=== PATIENT | female | born 1950 | race Caucasian/White ===

== ENCOUNTER → 2017-03-04 | Outpatient (CLI) | payer MEDICARE, SELFPAY | PROVIDERS: Family Provider Physician Assistant; Visit Provider Physician Assistant | DX: G57.01 Lesion of sciatic nerve, right lower limb (principal) | CPT/HCPCS: 72110 ==

== ENCOUNTER → 2017-04-14 15:56 | Outpatient (CLI) | payer MEDICARE, SELFPAY ==
--- NOTE | 2017-04-14 16:01 | MR_ITS ---
MR lumbar spine wo con HISTORY: Low back pain, right hip and leg pain with numbness and tingling, right foot numbness ORDERING PHYSICIAN: Benjie Butcher MD PATIENT AGE: 67 years COMPARISON: 02/22/2017 radiograph TECHNIQUE: Standard multiplanar multiecho sequences are performed without contrast. 3-D MIP and myelographic images are also rendered and reviewed FINDINGS: Spinal cord ends at the T12-L1 level. T11-T12, T12-L1, L1-L2 L2-L3, and L3-L4 disc spaces are unremarkable. There is mild facet and ligamentum flavum hypertrophy at L2-L3 and L3-L4 without significant lateral recess or foraminal narrowing. L4-L5: Mild anterolisthesis of L4 of 4 mm with bulging disc and small central disc protrusion. There is moderate facet and ligamentum flavum hypertrophy with transverse narrowing of the canal. The facet ligamentum hypertrophy is somewhat more prominent on the right with resultant severe right lateral recess narrowing and moderate right foraminal narrowing. There is moderate left lateral recess and mild left foraminal narrowing. L5-S1: There is severe degenerative disc disease with marked decrease in the disc space with type II endplate changes. Bilateral facet hypertrophy more prominent on the right. There is moderate to severe right-sided foraminal narrowing and mild left foraminal narrowing IMPRESSION: 1. L4-L5: Mild anterolisthesis of L4 of 4 mm with bulging disc and small central disc protrusion. There is moderate facet and ligamentum flavum hypertrophy with transverse narrowing of the canal. The facet ligamentum hypertrophy is somewhat more prominent on the right with resultant severe right lateral recess narrowing and moderate right foraminal narrowing. There is moderate left lateral recess and mild left foraminal narrowing. 2. L5-S1: There is severe degenerative disc disease with marked decrease in the disc space with type II endplate changes. Bilateral facet hypertrophy more prominent on the right. There is moderate to severe right-sided foraminal narrowing and mild left foraminal narrowing 3. Generalized spondylosis of lumbar spine as detailed above
== END ==
PROVIDERS: Family Provider Family Medicine; PCP Family Medicine; Visit Provider Family Medicine
DX: G57.01 Lesion of sciatic nerve, right lower limb (principal)
CPT/HCPCS: 72148; 76376

== ENCOUNTER → 2017-10-28 12:42 | Outpatient (CLI) | payer MEDICARE, SELFPAY ==
[2017-10-28 12:45] LABS: Adenovirus F 40/41, stool Not Detected (NotDetected); Astrovirus Not Detected (NotDetected); Campylobacter Not Detected (NotDetected); Clostridium Difficile A/B, PCR Not Detected (NotDetected); Cryptosporidium Not Detected (NotDetected); Cyclospora Cayetanesis Not Detected (NotDetected); Entamoeba histolytica Not Detected (NotDetected); Enteroaggregative E coli Not Detected (NotDetected); Enteropathogenic E coli Not Detected (NotDetected); Enterotoxigenic E coli Not Detected (NotDetected); Giardia lamblia Not Detected (NotDetected); Norovirus Not Detected (NotDetected); Plesimonas Shigalloides, PCR Not Detected (NotDetected); Rotavirus A Not Detected (NotDetected); Salmonella, PCR Not Detected (NotDetected); Sapovirus Not Detected (NotDetected); Shiga-like toxin E coli Not Detected (NotDetected); Shigella Enterovasive E coli Not Detected (NotDetected); Vibrio Cholerae Not Detected (NotDetected); Vibrio, PCR Not Detected (NotDetected); Yersinia Entercolitica, PCR Not Detected (NotDetected)
== END ==
PROVIDERS: Visit Provider Nurse Practitioner Family
DX: R19.7 Diarrhea, unspecified (principal)
CPT/HCPCS: 87507

== ENCOUNTER 2020-03-17 22:29 | Emergency (ER) | payer MEDICARE, SELFPAY ==
[2020-03-17 22:30] VITALS: BP 188/77; PULSE 66; RESP 16; TEMP 36.6; O2SAT 97; BMI 26.5
[2020-03-17 22:54] LABS: Basophils # 0.1 K/mm3 (0-0.2); Basophils % 0.6 % (0.1-2.0); Eosinophils # 0.1 K/mm3 (0.0-0.4); Eosinophils % 1.6 % (0.1-12.0); Hematocrit 41.8 % (37.0-47.0); Lymphocytes # 2.5 K/mm3 (0.7-4.5); Lymphocytes % 34.8 % (10-50); Mean Corpuscular HGB Conc 33.5 g/dL (31.8-35.4); Mean Corpuscular Hemoglobin 32.4 pg (27.0-31.2); Mean Corpuscular Volume 96.7 fl (81-99); Mean Platelet Volume 7.3 fl (7.4-10.4); Monocytes # 0.5 K/mm3 (0.1-1.0); Monocytes % 6.5 % (1.7-9.3); Neutrophils # 4.1 K/mm3 (1.8-7.8); Neutrophils % 56.6 % (37.0-80.0); Platelet Count 323 K/mm3 (142-424); Red Blood Count 4.32 M/mm3 (4.20-5.40); Red Cell Distribution Width 13.9 % (11.5-17.5); White Blood Count 7.2 K/mm3 (4.8-10.8)
--- NOTE | 2020-03-17 22:54 | PC.NURSE ---
hung D5W 500ml but unable to scan. pt received 8oz orange juice, upon arrival pt drank 2 cokes and peanut butter
[2020-03-17 23:00] LABS: POC Glucose,Bedside 55 (70-110)
[2020-03-17 23:00] LABS: Chloride 100 mmol/L (98-107); Potassium 3.8 mmoL/L (3.5-5.1); Sodium 137 mmol/L (136-145)
--- NOTE | 2020-03-17 23:01 | PC.NURSE ---
poison control recommends to monitor pt for 4-5 hrs from when pt took insulin
[2020-03-17 23:03] LABS: Alanine Aminotransferase 29 U/L (12-78); Albumin Level 4.4 g/dl (3.5-5.0); Alkaline Phosphatase 123 U/L (38-126); Anion Gap 10.8 mEq/L (5-15); Aspartate Amino Transferase 43 U/L (14-36); Bilirubin,Total 0.4 mg/dl (0.2-1.3); Blood Urea Nitrogen 17 mg/dl (7-17); Calcium 9.8 mg/dl (8.4-10.2); Carbon Dioxide 30 mmol/L (22.0-30.0); Creatinine Clearance Estimated 48 mL/min (50-200); Estimated Glomerular Filt Rate 45 ml/min (>60); GFR (African American) 54 ML/MIN (>60); Globulin 4.3 g/dL (1.3-3.2); Glucose 51 mg/dl (74-100); Total Protein,Serum 8.7 g/dl (6.3-8.2)
[2020-03-17 23:30] VITALS: BP 147/61; PULSE 62; O2SAT 97
--- NOTE | 2020-03-17 23:39 | PC.NURSE ---
pt is currently 90 glucose via [employer]in[employer] device
[2020-03-18] VITALS (9 sets, daily range): BP systolic 142–168; BP diastolic 61–72; PULSE 59–69; RESP 14; TEMP 36.6; O2SAT 93–96
--- NOTE | 2020-03-18 00:10 | PC.NURSE ---
pt glucose dropped to 56 via dexcom monitor. pt was given peanut butter
--- NOTE | 2020-03-18 00:16 | PC.NURSE ---
pt glucose 77 via dexcom
--- NOTE | 2020-03-18 00:21 | PC.NURSE ---
Sy from poison control called for a pt status. no more recommendations @ this time
--- NOTE | 2020-03-18 00:23 | HMH.EDGENADL ---
ED Disposition Clinical Impression: Medication reaction Qualifiers: Encounter type: initial encounter Qualified Code(s): T50.905A - Adverse effect of unspecified drugs, medicaments and biological substances, initial encounter Diabetes mellitus Qualifiers: Diabetes mellitus type: type 1 Diabetes mellitus complication status: with other specified complication Qualified Code(s): E10.69 - Type 1 diabetes mellitus with other specified complication Disposition: Home, Self-Care Condition on Discharge: Good Instructions: DI for Hyperglycemia -- Adult Additional Instructions: see pcp for follow up Referrals: Nagi Malave [Primary Care Provider] - - Critical Care Critical Care Time: No Attestation: On 03/17/20, the high probability of a clinically significant, sudden or life threatening deterioration of the following system(s) required my full and direct attention, intervention and personal management. The time I documented below is in addition to time spent performing reported procedures but includes the following listed in this critical care notation. Medical Decision Making - Medical Records Medical records reviewed: Yes: I reviewed the patient's medical records. - Tee Inquiry Pt receiving controlled substance: No Vital Signs: 03/17/20 22:30 03/17/20 23:30 03/18/20 00:00 Temperature 97.9 F Temperature Source Oral Pulse Rate [Right] 66 62 60 Respiratory Rate 16 Blood Pressure [Right Arm] 188/77 H 147/61 H 168/72 H Blood Pressure Mean [Right Arm] 114 89 104 02 Sat by Pulse Oximetry 97 97 96 Oxygen Delivery Method Room Air 03/18/20 00:30 03/18/20 01:00 03/18/20 01:30 Temperature Temperature Source Pulse Rate [Right] 60 61 60 Respiratory Rate Blood Pressure [Right Arm] 156/65 H 165/65 H 142/64 H Blood Pressure Mean [Right Arm] 95 98 90 02 Sat by Pulse Oximetry 94 L 94 L 94 L Oxygen Delivery Method Room Air 03/18/20 02:00 03/18/20 02:30 03/18/20 03:00 Temperature Temperature Source Pulse Rate [Right] 63 61 59 L Respiratory Rate Blood Pressure [Right Arm] 142/64 H 149/64 H 156/64 H Blood Pressure Mean [Right Arm] 90 92 94 02 Sat by Pulse Oximetry 93 L 95 95 Oxygen Delivery Method 03/18/20 03:30 Temperature Temperature Source Pulse Rate [Right] 62 Respiratory Rate Blood Pressure [Right Arm] 162/64 H Blood Pressure Mean [Right Arm] 96 02 Sat by Pulse Oximetry 94 L Oxygen Delivery Method - Lab Data Lab results reviewed: Yes: I reviewed the patient's lab results. Lab Results 03/17/20 22:34: POC Glucose 55 L 03/17/20 22:40: WBC 7.2, RBC 4.32, Hgb 14.0, Hct 41.8, MCV 96.7, MCH 32.4 H, MCHC 33.5, RDW 13.9, Plt Count 323, MPV 7.3 L, Neut % (Auto) 56.6, Lymph % (Auto) 34.8, [place] % (Auto) 6.5, Eos % (Auto) 1.6, Baso % (Auto) 0.6, Neut # (Auto) 4.1, Lymph # (Auto) 2.5, [place] # (Auto) 0.5, Eos # (Auto) 0.1, Baso # (Auto) 0.1 03/17/20 22:40: Sodium 137, Potassium 3.8, Chloride 100, Carbon Dioxide 30, Anion Gap 10.8, BUN 17, Creatinine 1.20 H, Estimated Creat Clear 48, Estimated GFR 45 L, Est GFR ( Amer) 54 L, Glucose 51 L, Calcium 9.8, Total Bilirubin 0.4, AST 43 H, ALT 29, Alkaline Phosphatase 123, Total Protein 8.7 H, Albumin 4.4, Globulin 4.3 H, Albumin/Globulin Ratio 1.0 L 03/18/20 02:30: POC Glucose 171 H 03/18/20 03:32: Sodium 129 L, Potassium 4.2, Chloride 96 L, Carbon Dioxide 29, Anion Gap 8.2, BUN 19 H, Creatinine 0.90 D, Estimated Creat Clear 57, Estimated GFR 62, Est GFR ( Amer) 75 D, Glucose 122 H D, Calcium 8.7 D Result diagrams: 03/17/20 22:40 03/18/20 03:32 Orders (Tests/Meds): ED MEDICATIONS Generic Name Dose Route Start Last Admin Trade Name Freq PRN Reason Stop Dose Admin Dextrose 500 ml 03/17/20 22:49 Dextrose 5% In Water 500ml Iv IV 03/17/20 22:50 ONCE ONE Dextrose/Water 500 mls @ 25 mls/hr 03/18/20 01:00 03/18/20 01:05 Dextrose 10% In Water 500ml IV 04/17/20 00:59 25 mls/hr .Q20H MELLY Admini
--- NOTE | 2020-03-18 00:32 | PC.NURSE ---
glucose 98 via dexcom D5W bolus complete
--- NOTE | 2020-03-18 00:46 | PC.NURSE ---
glucose 87 via dexcom
--- NOTE | 2020-03-18 01:10 | PC.NURSE ---
glucose 46 via dexcom. D10 500ml bolus hung @ this time. pt was given orange juice with sugar in it
--- NOTE | 2020-03-18 01:17 | PC.NURSE ---
glucose 70 via dexcom
--- NOTE | 2020-03-18 01:32 | PC.NURSE ---
glucose 130 via dexcom
--- NOTE | 2020-03-18 01:48 | PC.NURSE ---
glucose 160 via dexcom D10 bolus stopped @ this time
--- NOTE | 2020-03-18 02:00 | PC.NURSE ---
glucose 86 via dexcom
--- NOTE | 2020-03-18 02:09 | PC.NURSE ---
glucose 69 via dexcom D10 restarted
--- NOTE | 2020-03-18 02:17 | PC.NURSE ---
glucose 74 via dexcom. pt is resting with no complaints @ this time
--- NOTE | 2020-03-18 02:31 | PC.NURSE ---
FSBS 171 D10 complete
[2020-03-18 02:37] LABS: POC Glucose,Bedside 171 (70-110)
--- NOTE | 2020-03-18 03:08 | PC.NURSE ---
poison control call for pt update glucose 140 via dexcom
--- NOTE | 2020-03-18 03:34 | PC.NURSE ---
glucose 119 via dexcom
[2020-03-18 03:51] LABS: Chloride 96 mmol/L (98-107)
[2020-03-18 03:52] LABS: Potassium 4.2 mmoL/L (3.5-5.1); Sodium 129 mmol/L (136-145)
[2020-03-18 03:54] LABS: Blood Urea Nitrogen 19 mg/dl (7-17); Creatinine Clearance Estimated 57 mL/min (50-200); Estimated Glomerular Filt Rate 62 ml/min (>60); GFR (African American) 75 ML/MIN (>60)
[2020-03-18 03:55] LABS: Anion Gap 8.2 mEq/L (5-15); Carbon Dioxide 29 mmol/L (22.0-30.0)
--- NOTE | 2020-03-18 04:07 | PC.NURSE ---
glucose 130 via dexcom
[2020-03-18 04:18] LABS: Calcium 8.7 mg/dl (8.4-10.2); Glucose 122 mg/dl (74-100)
== END 2020-03-18 04:40 | disposition home or self-care (01) ==
PROVIDERS: Emergency Provider Emergency Medicine; PCP Internal Medicine
DX: T38.3X1A Poisoning by insulin and oral hypoglycemic [antidiabetic] drugs, accidental (unintentional), initial encounter (principal); E10.69 Type 1 diabetes mellitus with other specified complication; I25.10 Atherosclerotic heart disease of native coronary artery without angina pectoris; Z79.899 Other long term (current) drug therapy; Z79.4 Long term (current) use of insulin
CPT/HCPCS: 96365; 80048; 80053; 82962; 85025; 96366; 99283; J7060

== ENCOUNTER 2020-05-15 12:56 | Outpatient (RCR) | payer MEDICARE, SELFPAY | END 2020-09-15 10:59 | disposition home or self-care (01) | LOC: PT 12:56 | DX: I21.9 Acute myocardial infarction, unspecified (principal) | CPT/HCPCS: 93798 ==

== ENCOUNTER → 2021-08-22 13:27 | Outpatient (CLI) | payer MEDICARE, SELFPAY ==
[2021-08-22 15:21] LABS: Chloride 102 mmol/L (98-107); Sodium 133 mmol/L (136-145)
[2021-08-22 15:22] LABS: Albumin Level 3.2 g/dl (3.5-5.0)
[2021-08-22 15:24] LABS: Blood Urea Nitrogen 30 mg/dl (7-17); Carbon Dioxide 22 mmol/L (22.0-30.0); Estimated Glomerular Filt Rate 37 ml/min (>60); GFR (African American) 45 ML/MIN (>60); Glucose 229 mg/dl (74-100); Phosphorous 4.5 mg/dl (2.5-4.5)
[2021-08-22 15:25] LABS: Calcium 8.9 mg/dl (8.4-10.2)
== END ==
PROVIDERS: PCP Internal Medicine; Visit Provider Hospitalist
DX: N17.9 Acute kidney failure, unspecified (principal)
CPT/HCPCS: 36415; 80069

== ENCOUNTER → 2022-11-07 14:25 | Outpatient (CLI) | payer MEDICARE, SELFPAY | PROVIDERS: PCP Nurse Practitioner Family; Visit Provider Nurse Practitioner Family | DX: R19.7 Diarrhea, unspecified (principal) | CPT/HCPCS: 87506 ==

== ENCOUNTER 2024-08-30 12:55 | Outpatient (CLI) | payer MEDICARE, SELFPAY ==
--- OUTSIDE RECORDS SUMMARY | 2024-07-01 10:20 | XMS_ITS | Encounter Summary ---
Author Organization [facility] Address [address] [place] [address] Care Team Providers Care Protocol Manager Name Role Phone Alisa Kunz DO Primary Care Provider [phone] Kodi Bustos DO Unavailable [phone] Sujit Arriola MD Unavailable [phone] Sujit Reyes MD Unavailable [phone] Tanya Powell Unavailable [phone] Reason for Visit * Reason Comments Follow-up Encounter Details Date Type Department Care Team ([facility] st Contact Info) Description 07/01/2024 10:20 AM EDT Office Visit Medical Office Building [facility] [address], [address] [place] [address] Nathan Shepard MD [address] [facility] [address] [place] [address] Burst fracture of T12 vertebra (CMS/HCC) (Primary Dx) Social History Tobacco Use Types Packs/Day Years Used Date Smoking Tobacco: Never Passive Smoke Exposure: Past Smokeless Tobacco: Never Tobacco Cessation:Counseling Given: Not Answered Passive Exposure Comments:2nd hand smoke Alcohol Use Standard Drinks/Week Comments Yes 4 (1 standard drink = 0.6 oz pur e alcohol) Nightly Humiliation, Afraid, Rape, and Kick questionnair e Answer Date Recorded Within the last year, have y ou been afraid of your partner or ex-partner? No 05/27/2024 Within the last year, have y ou been humiliated or emotionally abused in other ways by your partner or ex-partner? No Within the last year, have y ou been kicked, hit, slapped, or otherwise physically hurt by your partner or ex-partner? No 05/27/2024 Within the last year, have y ou been raped or forced to have any kind of sexual activity by your partner or ex-partner? No 05/27/2024 Social Connection and Isolation Panel Answer Date Recorded In a typical week, how many times do you talk on the phone with family, friends, or neighbors? Once a week 08/31/19 How often do you get togethe r with friends or relatives? Once a week 08/30/2022 How often do you attend [facility] or congregation services? 1 to 4 times per year 08/30/2022 Do you belong to any clubs o r organizations such as baptism groups, unions, fraternal or athletic groups, or school groups? No 08/30/2022 How often do you attend meet ings of the clubs or organizations you belong to? Never 08/30/2022 Are you , , di vorced, , never , or living with a partner? 08/30/2022 AUDIT-C Answer Date Recorded Q1: How often do you have a drink containing alcohol? 4 or more times a week 08/30/2022 Q2: How many drinks containi ng alcohol do you have on a typical day when you are drinking? 3 or 4 Q3: How often do you have si x or more drinks on one occasion? Less than monthly 08/30/2022 Overall Financial Resource Strain (CARDIA) Answe r Date Recorded How hard is it for you to pa y for the very basics like food, housing, medical care, and heating? Not hard at all 08/30/2022 PHQ-2 Answer Date Recorded Patient Health Questionnaire-2 Score 0 06/01/2024 [facility] - Occupational Stress Questionnaire Answer Date Recorded Do you feel stress - tense, restless, nervous, or anxious, or unable to sleep at night because your mind is troubled all the time - these days? To some extent 08/30/2022 Exercise Vital Sign Answer Date Recorde d On average, how many days pe r week do you engage in moderate to strenuous exercise (like a brisk walk)? 2 days 08/30/2022 On average, how many minutes do you engage in exercise at this level? 60 min 08/30/2022 Hunger Vital Sign Answer Date Recorded Within the past 12 months, y ou worried that your food would run out before you got the money to buy more. Never true 05/28/19 Within the past 12 months, t he food you bought just didn't last and you didn't have money to get more. Never true 05/27/2024 PRAPARE - Transportation Answer Date Re corded In the past 12 months, has l ack of transportation kept you from medical appointments or from getting medications? Yes 05/09 In the past 12 months, has l ack of transportation kept you from meetings, work, or from getting things needed for daily living? Yes 05/27/2024 Housing Stability Vital Sign Answer Hong e Recorded In the last 12 months, was t here a time when you were not able to pay the mortgage or rent on time? No 12/30/2023 In the last 12 months, how many places have you lived? 1 12/30/2023 In the last 12 months, was t here a time when you did not have a steady place to sleep or slept in a senior living (including now)? No 12/30/2023 PHQ-9 Answer Date Recorded Patient Health Questionnaire-9 Score 0 06/01/2024 Housing Stability Vital Sign Answer Hong e Recorded In the last 12 months, was t here a time when you were not able to pay the mortgage or rent on time? No 05/27/2024 In the past 12 months, how m any times have you moved where you were living? 0 05/27/2024 At any time in the past 12 m [facility], were you homeless or living in a senior living (including now)? No 05/27/2024 CAGE ASSESSMENT Answer Date Recorded Cage unable to access Not on file 06/29/2024 Maximum number of drinks you had on a given occasion in the last month? 0 drinks 06/29/2024 How many alcoholic Beverages do you typically drink in a week? 0 - 7 per week 06/29/2024 Have you ever felt you should CUT down on your d rinking? 0 06/29/2024 Have you been ANNOYED by peo ple criticizing your drinking? 0 06/29/2024 Have you felt GUILTY about your drinking? 0 06/29/2024 Have you had a drink first t anselmo in the morning ([employer]) to steady your nerves or to get rid of a hangover? 0 06/29/2024 CAGE Questionnaire Score 0 025 Utilities Answer Date Recorded In the past 12 months has th e electric, gas, oil, or water company threatened to shut off services in your home? No 05/27/2024 PHQ-2A Answer Date Recorded Depression Risk 0 09/18/2022 Comments No Sex and Gender Information Value Date Recorded Sex Assigned at Female 11/01/2020 9:33 PM EDT Legal Sex Female 8:14 PM EDT Gender Identity Female 11/01/2020 9:33 PM EDT Sexual Orientation Straight 11/01/2020 9: 33 PM EDT documented as of this encounter Last Filed Vital Signs Vital Sign Reading Time Taken Comments Blood Pressure 108/69 07/01/2024 10:41 AM EDT Pulse 70 07/01/2024 10:41 AM EDT Temperature - - Respiratory Rate - - Oxygen Saturation 98% 07/01/2024 10:41 AM EDT Inhaled Oxygen Concentration - - Weight 63.5 kg (140 lb) 07/01/2024 10:41 AM EDT Height 162.6 cm (5' 4 ) 07/01/2024 10:41 AM EDT Body Mass Index 24.03 07/01/2024 10:41 AM EDT documented in this encounter Miscellaneous Notes * Progress Notes - Patricia Tapia PA - 07/01/2024 10:20 AM EDT ORTHOPEDIC SPINE CLINIC 07/01/2024 CHIEF COMPLAINT: fracture follow up DATE OF INJURY: 03/12/24 INJURY: T12 burst fracture ATTENDING SURGEON: Dera SUBJECTIVE: Michelle Felipe returns to clinic today now 16 weeks after sustaining the above injury. Injury was sustained by fall from standing height. At her last visit 06/16/2024 she continued to complain of pain in her thoracic spine rated 10/10. Therefore, she was referred for thoracic spine MRI to evaluate fracture healing status. She states she is recovering from pneumonia and had thoracentesis for pleural effusion. She is using O2 via nasal cannula 30/09. She complains of 10/10 pain in her upper thoracic and lumbar spine. She denies radiculopathy into lower extremities. She uses a walker at home but uses a wheelchair for community ambulation. She complains of bending forward when using her walker. She states she was not able to walk upright. She has severe low back pain. However, she was not noticed leg symptoms associated with her back pain. She was very concerned that this has not been evaluated nor has been treated recently. No change in his bowel or bladder function. Medical History[1] Current Medications[2] 14 point review of systems was completed Constitutional: Denies N/V, fever/chills, weight loss/gain, fatigue, malaise, or night sweats. PULM: Denies SOB, wheezing or cough. CARDIAC: Denies chest pain or heart palpitations. MUSK: Reports upper thoracic and lumbar spine pain, as further described in history of present illness. DERM: Reports no skin rashes or lesions of concern HEME: Denies any bleeding, there is not ecchymosis present OBJECTIVE: Vitals: 07/01/24 1041 BP: 108/69 Pulse: 70 SpO2: 98% Weight: 63.5 kg (140 lb) Height: 1.626 m (5' 4 ) FOCUSED NEURO EXAM: Motor Strength Right Left L2: Hip flexion (Iliopsoas) 07/12 07/12 L3: Knee extension (Quad) 07/12 07/12 L4: Ankle DF (TA) 07/12 07/12 L5: Great Toe DF (EHL) 07/12 07/12 S1: Ankle Pf, Foot Eversion (Peroneal longus/brevis) 07/12 07/12 S2: Great toe flexion (FHL), Knee flexion 07/12 07/12 Sensation Right Left L2: Proximal anterior thigh Normal Normal L3: Mid anterior thigh Normal Normal L4: Medial leg/foot, great toe (Saphenous n.) Normal Normal L5: Dorsum of mid foot Normal Normal S1: Lateral leg/foot, little toe, Back of leg (Sural n.) Normal Normal Reflexes Right Left L4: Patellar 2/4 2/4 S1: Achilles 2/4 2/4 Straight leg raise is Negative Sitting comfortably in wheelchair with O2 nasal cannula in place IMAGING: MRI thoracic spine from June 25, 2024 was reviewed today in clinic. The T12 vertebral body is stable in appearance and without edema. No other bone abnormalities I reviewed her CT scan lumbar spine and cervical spine xrays . She has multilevel facet arthropathyin lumbar spine. No bone abnormalities in cervical or lumbar spine. Disk degeneration in cervical spine. ASSESSMENT: 16 weeks s/p T12 burst fracture progressing as expected. PLAN: Images were reviewed with her showing T12 fracture healing as expected. She met with Dr. Shepard to discuss the MRI. He explained the fracture has healed. She has multilevel degenerative changes. We discussed that cervical and lumbar discs degenerate throughout one's lifetime, though, the pain is often worse in the middle of life. This corresponds to micro-instability in the disc and translates into overloading of the facet joint complex, causing pain. This is expected to stabilize as the de generative process progresses. This results in stiffness and some height loss, but less pain, in general. Treatment should be aimed at symptom control with modalities such as episodic anti-inflammatories, muscle relaxers, physical therapy exercises, and stretching. Surgery is reserved for situations of nerve or spinal cord compression or structural instability, which are not present currently. She has had significant health issues recently. She is deconditioned and needs to start walking forexercise and stamina when able. She does not require further treatment at this time. She will be seen on an as needed basis. This patient asked questions and all of the questions were answered to the patient's satisfaction. [1] Past Medical History: Diagnosis Date 2018-nCoV acute respiratory disease 05/07/2022 Alcohol use Allergic 1973 Anemia Anxiety Arthritis Asthma Cellulitis 02/13/2024 Cellulitis of right leg 02/12/2024 CHF (congestive heart failure) ([facility]) Chronic respiratory failure 2019 Clotting disorder ([facility]) COPD (chronic obstructive pulmonary disease) ([facility]) 2019 Coronary artery disease CTS (carpal tunnel syndrome) Depression Diabetes mellitus type I ([facility]) Disease of thyroid gland Eczema Fracture of left proximal fibula 04/09/2021 - Left proximal fibula fracture on 02/2021 after a mechanical fall. - Established with orthopedic surgery, no surgical intervention, WBAT. Hepatitis B 1960 HL (hearing loss) Hypertension Hyperthyroidism 1960 Hypothyroidism 1960 Infectious viral hepatitis Myocardial infarction (CMS/HCC) Peripheral neuropathy Post-menopausal bleeding 05/08/2021 - Isolated episode of vaginal spotting in early 2021, no recurrence. Was evaluated with OBGYN in 10/2021, no intervention at this time, if recurrence of bleeding will likely require endometrial biopsy. 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 Scleritis. - Needs [facility] eye exam. - Was ableto get patient in with [facility] ophthalmology right after our clinic appointment (where shefollows regularly). - In the meantime, provided erythromycin eye ointment for bacterial conjunctivitis treatment. Ringworm of body 04/09/2022 - Exam findings most consistent with ringworm, exposure suspected to be indoor/outdoor dog. Image available in media tab. - Continue treatment with clotrimazole cream, advised patient that may take acouple weeks for rash to fully resolve - If no improvement with antifungals, next on differential would be skin manifestation of SLE ie discoid lupus, though this is unlikely given lack of other syste Seasonal allergies Sleep apnea, obstructive Stroke (CMS/HCC) Systemic lupus erythematosus, unspecified (CMS/HCC) Lupus Varicella Visual impairment [2] Current Outpatient Medications: acetaminophen (Tylenol) 500 MG tablet, Take 2 tablets (1,000 mg) by mouth every 6 hours as needed.,Disp: , Rfl: amLODIPine (Norvasc) 5 MG tablet, , Disp: , Rfl: brimonidine 0.2 % OP ophthalmic solution, Administer 1 drop into both eyes daily., Disp: 10 mL, Rfl: 0 busPIRone (Buspar) 5 MG tablet, Take 2 tablets (10 mg) by mouth 2 (two) times a day., Disp: , Rfl: cetirizine (ZyrTEC) 10 MG tablet, Take 1 tablet (10 mg) by mouth every evening., Disp: , Rfl: DULoxetine (Cymbalta) [address] capsule, Take 1 capsule (20 mg) by mouth 1 (one) time each day in the morning. Taking 80mg total, Disp: 90 capsule, Rfl: 3 DULoxetine (Cymbalta) [address] capsule, Take 1 capsule (60 mg) by mouth daily. Do not crush or chew., Disp: , Rfl: ezetimibe (Zetia) 10 MG tablet, Take 1 tablet (10 mg) by mouth nightly., Disp: , Rfl: Hzujwivshqg-Pimmaafgp-Mjzipu (Trelegy Ellipta) 200-62.5-25 MCG/ACT aerosol powder , Inhale 1 puff 1(one) time each day in the morning., Disp: 180 each, Rfl: 3 folic acid (Folvite) 1 MG tablet, Taking 1 tablet five days of the week, Disp: 180 tablet, Rfl: 0 gabapentin (Neurontin) 300 MG capsule, Take 1 capsule during the day and 3 capsules at night., Disp: 120 capsule, Rfl: 2 hydroxychloroquine (Plaquenil) 200 MG tablet, Take 1 tablet (200 mg) by mouth 1 (one) time each day., Disp: 90 tablet, Rfl: 1 insulin glargine (Toujeo SoloStar) 300 UNIT/ML injection pen (1 UNIT DIAL), Inject 13 Units under the skin daily., Disp: 4.5 mL, Rfl: 2 insulin lispro (HumaLOG KWIKPEN) 100 UNIT/ML injection pen, Inject 3-4 units before breakfast and lunch, 2-3 units before dinner and 1:75>160 mg/dl. Max tdd 30 units, Disp: 15 mL, Rfl: 2 Insulin Pen Needle (Pen Cabool) 30G X 5 MM [facility], use 4 per day, Disp: , Rfl: latanoprost (Xalatan) 0.005 % ophthalmic solution, Administer 1 drop into both eyes nightly., Disp:, Rfl: levothyroxine (Synthroid, Levoxyl) 125 MCG tablet, Take 1 tablet (125 mcg) by mouth 1 (one) time each day before breakfast., Disp: 90 tablet, Rfl: 3 metoprolol succinate XL (Toprol-XL) 25 MG 24 hr tablet, Take 1 tablet (25 mg) by mouth daily., Disp: , Rfl: mycophenolate (CellCept) 500 MG tablet, Take 2 tablets (1,000 mg) by mouth 2 (two) times a day., Disp: 360 tablet, Rfl: 1 nitroglycerin (Nitrostat) 0.4 MG SL tablet, Place 1 tablet (0.4 mg) under the tongue every 5 (five)minutes as needed for chest pain., Disp: , Rfl: oxygen (O2) gas, Inhale 2 L nightly. via nasal canula, Disp: , Rfl: Pitavastatin Calcium (Livalo) 4 MG tablet, Take 1 tablet by mouth 1 (one) time each day., Disp: 90 tablet, Rfl: 3 warfarin (Coumadin) 5 MG tablet, Take 7.5mg on Mondays (1.5 tablets) and 5mg the rest of the week and follow up with your warfarin pharmacist., Disp: , Rfl: Calcium Carb-Cholecalciferol 600-200 MG-UNIT tablet, Take 1 tablet by mouth 1 (one) time each day in the morning. (Patient not taking: Reported on 07/01/2024), Disp: , Rfl: diclofenac (Voltaren) 1 % topical gel, Place 1-2 g on the skin 2 (two) times a day. Apply as directed to Lower Back (Patient not taking: Reported on 07/01/2024), Disp: 100 g, Rfl: 3 furosemide (Lasix) 40 MG tablet, Take 1 tablet (40 mg) by mouth daily. (Patient not taking: Reported on 06/16/2024), Disp: 30 tablet, Rfl: 0 losartan (Cozaar) 50 MG tablet, Take 1 tablet (50 mg) by mouth daily. (Patient not taking: Reportedon 06/16/2024), Disp: 30 tablet, Rfl: 1 methocarbamol (Robaxin) 500 MG tablet, Take 1 tablet (500 mg) by mouth 3 (three) times a day. (Patient not taking: Reported on 06/16/2024), Disp: 90 tablet, Rfl: 1 tiZANidine (Zanaflex) 2 MG tablet, Take 1 tablet (2 mg) by mouth every 8 hours as needed for musclespasms. (Patient not taking: Reported on 06/16/2024), Disp: 60 tablet, Rfl: 1 Cosigned by Nathan Shepard MD at 07/01/2024 12:35 PM EDT Associated attestation - Nathan Shepard MD - 07/01/2024 12:35 PM EDT I attest to being involved in providing substantive part of the medical decision making in patient care. Very deconditioned, but her fx is stable. Can now do activity as tolerated and can f/u as needed. documented in this encounter Plan of Treatment Upcoming Encounters Date Type Department Care Team (Late st Contact Info) Description 09/08/2024 11:20 AM EDT Office Visit [facility] Internal Medicine [address] [place] [address] Alisa Kunz, DO [address] [place] [address] 10/07/2024 4:00 PM EDT Appointment Cardiac Imaging [address] [place] [address] 10/14/2024 4:00 PM EDT Office Visit [facility] Medicine Specialties [address] [place] [phone] Lavern Shoemaker MD [address] [place] [address] 10/27/2024 1:40 PM EDT Office Visit [facility] Endocrinology [address] [place] [phone] Anne-Marie Kolb L, [employer] C[employer]IVATION MANAGER [address] [place] [phone] 11/29/2024 10:20 AM EDT Office Visit [facility] Internal Medicine [address] [place] [phone] Alisa Kunz, DO [address] [place] [address] 02/02/2025 10:30 AM EST Office Visit [facility] Medicine Specialties [address] [place] [address] Sadiq Osborne, SHANA [address], [place] [phone] documented as of this encounter Visit Diagnoses Diagnosis Burst fracture of T12 vertebra (CMS/HCC)- Primary documented in this encounter Additional Health Concerns Assessment Noted Time PHQ-9 Depression Total Score: 0 06/02/19 25 1:21 PM EDT A fall risk assessment has been complete d for the patient 07/01/2024 10:41 AM EDT A Body Mass Index follow-up plan has been documented for the patient 07/01/2024 12:35 PM EDT documented as of this encounter Care Teams Protocol Manager Relationship Specialty Start Date End Date Alisa Kunz DO [address] [place] [phone] PCP - General Internal Medicine 03/13/21 Kodi Bustos DO [address] [phone] Surgeon Cardiothoracic Surgery 11/06/22 Sujit Arriola MD [address] [place] [address] Consulting Physician Pulmonary Disease 11/06/22 Sujit Reyes MD [address] [place] [address] Referring Physician 12/04/22 Tanya Powell [address] [place] [address] [address] [place] [phone] Registered Nurse 04/02/24 07/01/24 documented as of this encounter
--- OUTSIDE RECORDS SUMMARY | 2024-07-07 12:00 | XMS_ITS | Encounter Summary ---
Author Organization [facility] Address [address] [place] [address] Care Team Providers Care Chiropractic Teacher Name Role Phone Alisa Kunz DO Primary Care Provider Kodi Bustos DO Unavailable [phone] Sujit Arriola MD Unavailable [phone] Sujit Reyes MD Unavailable [phone] Encounter Details Date Type Department Care Team (Late st Contact Info) Description 07/07/2024 12:00 PM EDT Office Visit [facility] Internal Medicine [address] [place] [address] Alisa Kunz, DO [address] [place] [address] Acute hypoxic respiratory failure (Primary Dx); Pleural effusion Social History Tobacco Use Types Packs/Day Years Used Date Smoking Tobacco: Never Passive Smoke Exposure: Past Smokeless Tobacco: Never Passive Exposure Comments:2n d hand smoke Alcohol Use Standard Drinks/Week Comments [...] week 08/30/2022 How often do you attend chur or caodaism services? 1 to 4 times per year 08/30/2022 Do you belong to any clubs o r organizations such as hinduism groups, unions, fraternal or athletic groups, or [...] Recorded Patient Health Questionnaire-2 Score 0 06/01/2024 [facility] - Occupational Stress Questionnaire Answer Date Recorded [...] place to sleep or slept in a prison (including now)? No 12/30/2023 PHQ-9 Answer Date [...] any time in the past 12 m [facility], were you homeless or living in a prison (including now)? No 05/27/2024 CAGE ASSESSMENT Answer [...] drink first t anselmo in the morning (EYE-CALCULATION REVIEWER) to steady your nerves or to get rid of a hangover? 0 06/29/2024 CAGE Questionnaire Score 0 025 Utilities Answer Date Recorded In the past 12 months has th e [employer], gas, oil, or water [employer] threatened to shut off services in your home? No 05/27/2024 PHQ-2A Answer Date Recorded Depression Risk 0 09/18/2022 Comments No Sex and Gender Information Value Date Recorded Sex Assigned at Female 11/01/2020 9:33 PM EDT Legal Sex Female 8:14 PM EDT Gender Identity Female 11/01/2020 9:33 PM EDT Sexual Orientation Straight 11/01/2020 9: 33 PM EDT documented as of this encounter Miscellaneous Notes * Progress Notes - Alisa Kunz DO - 07/07/2024 12:00 PM EDT Subjective Michelle Felipe HPI Ms. Felipe is an established patient who presents for follow-up. Chart Review: - Had pulmonary rehab appointment 06/10/2024: They wanted patient to pursue home health PT/OT first. ( Recommend home health treatment for improvement of ADL and strengthening followed by completion ofpulmonary rehab when able to more easily complete mobility needs necessary to consistently participate. ). - Conference Reservationist started amlodipine 5 mg in the beginning of June. Patient notes she has been havingLE edema ever since starting. - Saw orthopedics 06/16/2024: MRI was ordered to further evaluate T12 burst fracture seen on x-rays. MRI was completed 06/25/2024. Incidentally, pleural effusion appears larger: Large right-sided pleural effusion. . Saw orthopedics on 07/01/2024: no surgical intervention needed. - Presented to the ER for shortness of breath: they completed a thoracentesis of the right pleural effusion in the ER. Has pulmonary follow-up tomorrow, 07/08/2024. Today, patient notes: - Continues to have shortness of breath and oxygen desaturations with walking <30 feet, will go into the 80s on O2 even on 2-3L O2. Maybe a mild amount of improvement in symptoms after thoracentesis but even than mild improvement lasted for just a day. Mostly has questions about her effusion andif this is the main cause of continued SOB, or if it is something in relation to her heart. - She notes hoarse voice even with minimal talking, has not seen ENT in a few months but plans to get back in with them. - She has been working for PT/OT. - Has not seen her riprap placer at [facility] since our last visit for follow-up: although they have started amlodipine 5 mg daily and has been having LE edema ever since (see above). She does have an appointment with Dr. Gonzales here at on 08/04/2024, she is aware of appointment and plans to attend. Please see problem-based assessment/plan below. Medications Ordered Prior to Encounter[1] All medications have been reviewed today. The following portions of the patient's chart were reviewed in this encounter and updated as appropriate: past medical history, surgical history, family history, tobacco history, allergies, and medications Review of Systems Dyspnea on exertion Hoarse voice with talking Objective There were no vitals filed for this visit. Physical Exam Constitutional: General: She is not in acute distress. Comments: Appears chronically ill. HENT: Mouth/Throat: Comments: Hoarse voice. Pulmonary: Comments: Audibly dyspneic over the video, on supplemental oxygen. Neurological: Mental Status: She is alert. Psychiatric: Mood and Affect: Mood normal. Behavior: Behavior normal. Limited physical exam due to TeleHealth video. Assessment/Plan Acute Hypoxic Respiratory Failure, Pleural Effusions - Currently on 2-3L O2 around the clock, desaturating to 88% with ambulating even with O2 (unable to walk more than 30 feet without feeling chest heaviness, dyspnea, desaturation of oxygen levels). Desaturates almost immediately <90% if she takes off oxygen, even at rest. - Etiology: Pleural effusion (potentially less likely as no significant improvement in symptoms after thoracentesis) vs. Pulmonary edema secondary to potentially pulmonary hypertension. - Thoracentesis performed in ER on 06/29/2024, has pulmonary follow-up tomorrow 07/08/2024. Will follow their recommendations. - Follows with outside riprap placer (has been following for years), has not seen them since last appointment, also has an appointment with cardiology now scheduled for 08/04/2024, patient is aware of appointment and will attend. - Patient following with HH PT/OT (pulmonary rehab recommended HH PT/OT before continuing with pulmonary rehab). LE Edema - Likely due to initiation of amlodipine by outside riprap placer, she plans on calling cardiology to discuss. Decreased Mobility, Physical Deconditioning, At High Risk for Falls - Following with HH PT/OT, patient unfortunately with decline in functional status due to multiple hospitalizations. T12 Burst Fracture - Seen on imaging 04/2024. Orthopedic surgery following, recommended no surgical intervention. Patient has not been wearing brace due to discomfort/limited mobility. Left Apical Thrombus - Was hospitalized in January and February, incidentally found left apical thrombus, anticoagulation has been switched to warfarin. Follows with the [facility] anti-coagulation clinic closely. Restless Leg Syndrome - Chronic, significantly improved with increased gabapentin dose. Current dose: 300 mg AM and 900 mg of gabapentin at bedtime for pain/RLS symptoms. (CSA signed 2021). Other Chronic Medical Conditions: - Pleural Effusions, Chronic Hypoxic Respiratory Failure (O2 at Night), Obstructive Lung Disease: Follows with pulmonary team. (See above). Of note: In 2022: Required multiple hospitalizations for pleural effusion, status post left pleuroscopy, pleural biopsy, PleurX placement and chemical pleurodesis 11/19/2022. Removed PleurX in 12/2022. These effusions were thought to be secondary to lupus at the time. - SLE: Follows with rheumatology. Patient confirms that she re-started Plaquenil, mycophenolate. However, she notes that she thinks she is having continuing lupus flare despite re-initiation, plans to follow-up with rheumatology in a few weeks. - Atrial Fibrillation, History of CHB s/p PPM, CAD s/p CABG in 2019, HFpEF/Grade II Diastolic Dysfunction, STEMI s/p Balloon Angioplasty in 2020: Follows with outside cardiology. On ASA. Now on warfarin for anticoagulation. - Diabetic Neuropathy: On gabapentin. - T1DM: Follows with endocrinology. - HTN: On metoprolol, amlodipine (see above). - HLD: On Livalo and Zetia. - CKD/Diabetic Nephropathy: Chronic, stable. - Depression/Insomnia: Chronic, stable. On Cymbalta, Buspar. Did not tolerate Wellbutrin. Followingwith outside psychiatry. - Drug Induced Xerostomia, Oral Aphthous Ulcers: Conservative management. - Fibromyalgia: Cymbalta. - GUSM: History of vaginal atrophy, urinary urgency, frequency, incontience. - GERD: On no medications. - Hypothyroidism: On levothyroxine 125 mcg daily. Last TSH normal 06/2023. - EWELINA: Follows with sleep medicine. - Failed Spinal Cord Stimulator, Limited Mobility: Stable. - Osteopenia: Repeat DEXA in 01/2025. - OA: Chronic, stable. - History of CVA: On secondary prevention. - Allergies: Zyrtec. - Voice Hoarseness: Has established with ENT. She plans on obtaining a follow-up appointment soon. Also established with voice therapy however unfortunately not stimulable . Healthcare Maintenance - Not addressed today. Alisa Kunz, DO Telehealth Statement Patient Verification Patient identity has been confirmed using name and date of ? Yes Authorizations and Agreements/Telemedicine Consent sent and consent confirmed? Yes Patient Location: Home/Other Patient confirms they are physically located in [place]? Yes If the patient is not physically located in [place], the provider has confirmed with [facility] thatthe provider is authorized to provide services in patient's stated location? N/A Provider Location: [facility] facility Audio and video or audio only? Audio and video Total visit time: 20 minutes [1] Current Outpatient Medications on File Prior to Visit Medication Sig Dispense Refill acetaminophen (Tylenol) 500 MG tablet Take 2 tablets (1,000 mg) by mouth every 6 hours as needed. amLODIPine (Norvasc) 5 MG tablet brimonidine 0.2 % OP ophthalmic solution Administer 1 drop into both eyes daily. 10 mL 0 busPIRone (Buspar) 5 MG tablet Take 2 tablets (10 mg) by mouth 2 (two) times a day. Calcium Carb-Cholecalciferol 600-200 MG-UNIT tablet Take 1 tablet by mouth 1 (one) time each day inthe morning. (Patient not taking: Reported on 07/01/2024) cetirizine (ZyrTEC) 10 MG tablet Take 1 tablet (10 mg) by mouth every evening. diclofenac (Voltaren) 1 % topical gel Place 1-2 g on the skin 2 (two) times a day. Apply as directed to Lower Back (Patient not taking: Reported on 07/01/2024) 100 g 3 DULoxetine (Cymbalta) [address] capsule Take 1 capsule (20 mg) by mouth 1 (one) time each day in themorning. Taking 80mg total 90 capsule 3 DULoxetine (Cymbalta) [address] capsule Take 1 capsule (60 mg) by mouth daily. Do not crush or chew. ezetimibe (Zetia) 10 MG tablet Take 1 tablet (10 mg) by mouth nightly. Slcmgdamktb-Lyozwvyfz-Zrebya (Trelegy Ellipta) 200-62.5-25 MCG/ACT aerosol powder Inhale 1 puff 1 (one) time each day in the morning. 180 each 3 folic acid (Folvite) 1 MG tablet Taking 1 tablet five days of the week 180 tablet 0 furosemide (Lasix) 40 MG tablet Take 1 tablet (40 mg) by mouth daily. (Patient not taking: Reportedon 06/16/2024) 30 tablet 0 gabapentin (Neurontin) 300 MG capsule Take 1 capsule during the day and 3 capsules at night. 120 capsule 2 hydroxychloroquine (Plaquenil) 200 MG tablet Take 1 tablet (200 mg) by mouth 1 (one) time each day.90 tablet 1 insulin glargine (Toujeo SoloStar) 300 UNIT/ML injection pen (1 UNIT DIAL) Inject 13 Units under the skin daily. 4.5 mL 2 insulin lispro (HumaLOG KWIKPEN) 100 UNIT/ML injection pen Inject 3-4 units before breakfast and lunch, 2-3 units before dinner and 1:75>160 mg/dl. Max tdd 30 units 15 mL 2 Insulin Pen Needle (Pen [place]) 30G X 5 MM [facility] use 4 per day latanoprost (Xalatan) 0.005 % ophthalmic solution Administer 1 drop into both eyes nightly. levothyroxine (Synthroid, Levoxyl) 125 MCG tablet Take 1 tablet (125 mcg) by mouth 1 (one) time each day before breakfast. 90 tablet 3 losartan (Cozaar) 50 MG tablet Take 1 tablet (50 mg) by mouth daily. (Patient not taking: Reported on 06/16/2024) 30 tablet 1 methocarbamol (Robaxin) 500 MG tablet Take 1 tablet (500 mg) by mouth 3 (three) times a day. (Patient not taking: Reported on 06/16/2024) 90 tablet 1 metoprolol succinate XL (Toprol-XL) 25 MG 24 hr tablet Take 1 tablet (25 mg) by mouth daily. mycophenolate (CellCept) 500 MG tablet Take 2 tablets (1,000 mg) by mouth 2 (two) times a day. 360 tablet 1 nitroglycerin (Nitrostat) 0.[address] 1 tablet (0.4 mg) under the tongue every 5 (five) minutes as needed for chest pain. oxygen (O2) gas Inhale 2 L nightly. via nasal canula Pitavastatin Calcium (Livalo) 4 MG tablet Take 1 tablet by mouth 1 (one) time each day. 90 tablet 3 tiZANidine (Zanaflex) 2 MG tablet Take 1 tablet (2 mg) by mouth every 8 hours as needed for muscle spasms. (Patient not taking: Reported on 06/16/2024) 60 tablet 1 warfarin (Coumadin) 5 MG tablet Take 7.5mg on Mondays (1.5 tablets) and 5mg the rest of the week and follow up with your warfarin pharmacist. [DISCONTINUED] lisinopril 20 MG tablet Take 1 tablet (20 mg total) by mouth 1 (one) time each day. Take one tablet each morning 90 tablet 3 No current facility-administered medications on file prior to visit. documented in this encounter Plan of Treatment Upcoming Encounters Date Type Department Care Team (Late st Contact Info) Description 09/08/2024 11:20 AM EDT Office Visit [facility] Internal Medicine [address], [address] [place] [address] Alisa Kunz DO [address] [place] [phone] 10/07/2024 4:00 PM EDT Appointment Cardiac Imaging [address] [place] [address] 10/14/2024 4:00 PM EDT Office Visit [facility] [address] [place] [phone] Lavern Shoemaker MD [address] [place], [place] [id number] 10/27/2024 1:40 PM EDT Office Visit [facility] Endocrinology [address] [place] [phone] Anne-Marie Kolb L, RUBBER STAMP DIE INSPECTOR [address] [place] [phone] 11/29/2024 10:20 AM EDT Office Visit [facility] Internal Medicine [address] [place] [address] [facility] [address] [facility] [address] [place] [address] 02/02/2025 10:30 AM EST Office Visit [facility] [address] [place] [address] Sadiq Osborne MBBS [address] [place], [place] [id number] documented as of this encounter Visit Diagnoses Diagnosis Acute hypoxic respiratory failure- Primary Pleural effusion Unspecified pleural effusion documented in this encounter Additional Health Concerns Assessment Noted Time PHQ-9 Depression Total Score: 0 06/02/19 25 1:21 PM EDT A fall risk assessment has been complete d for the patient 07/01/2024 10:41 AM EDT A Body Mass Index follow-up plan has been documented for the patient 07/08/2024 10:12 AM EDT documented as of this encounter Care Teams Chiropractic Teacher Relationship Specialty Start Date End Date Alisa Kunz DO [address] [place] [address] PCP - General Internal Medicine 03/13/21 Kodi Bustos, DO [address] [address] Surgeon Cardiothoracic Surgery 11/06/22 Sujit Arriola MD [address] [place] [address] Consulting Physician Pulmonary Disease 11/06/22 Sujit Reyes MD [address] [place] [address] Referring Physician 12/04/22 documented as of this encounter
--- OUTSIDE RECORDS SUMMARY | 2024-07-08 13:00 | XMS_ITS | Encounter Summary ---
Author Organization [facility] Address [address] [place] [address] Care Team Providers Care Visual Display Manager Name Role Phone ZelAisa willett Torri SOLIS Primary Care Provider [phone] Kodi Bustos DO Unavailable [phone] Sujit Arriola MD Unavailable [phone] Sujit Reyes MD Unavailable [phone] Reason for Referral * Consultation (Routine) - Authorized Specialty Diagnoses / Procedures Referred By Luis Armando mckeon Referred To Contact Diagnoses Recurrent pleural effusion on left Chronic hypoxic respiratory failure Art Olmos MD [address] [place] [address] Phone: tel: fax: Referral ID Status Reason Start Date Expiration Date V isits Requested Visits Authorized [id number] Authorized 07/08/2024 01/07/2026 1 1 Reason for Visit * Reason Comments Bronchiolitis * Consultation (Routine) - Closed Specialty Diagnoses / Procedures Referred By Luis Armando mckeon Referred To Contact Diagnoses Obstructive lung disease (CMS/HCC) Recurrent pleural effusion on left Tanner Fan MD [address] [facility] [address] [place] [address] Phone: tel: fax: Referral ID Status Reason Start Date Expiration Date Visits Re quested Visits Authorized [id number] Closed 05/27/2024 11/26/2025 1 1 Encounter Details Date Type Department Care Team (Latest Contact Info) Description 07/08/2024 1:00 PM EDT Office Visit [facility] [address] [place] [id number] Lavern Shoemaker MD [phone] [phone] Recurrent pleural effusion on left (Primary Dx); Chronic hypoxic respiratory failure; SLE (systemic lupus erythematosus related syndrome) ([facility]/HCC); Bronchiolitis; Obstructive lung disease ([facility]); Systemic lupus erythematosus (SLE) in adult ([facility]) Social History Tobacco Use Types Packs/Day Years [...] week 08/30/2022 How often do you attend [facility] or congregational services? 1 to 4 times per year 08/30/2022 Do you belong to any clubs o r organizations such as christian groups, unions, fraternal or athletic groups, or [...] Recorded Patient Health Questionnaire-2 Score 0 06/01/2024 [facility] Occupat ional [facility] - Occupational Stress Questionnaire Answer Date Recorded [...] place to sleep or slept in a [place] health care facility (including now)? No 12/30/2023 PHQ-9 Answer Date [...] any time in the past 12 m [facility], were you homeless or living in a [place] health [place] facility (including now)? 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) to steady your nerves or to get [...] Sign Reading Time Taken Comments Blood Pressure 109/71 07/08/2024 12:52 PM EDT Pulse 67 07/08/2024 12:52 PM EDT Temperature 36.7 C (98.1 F) 07/08/2024 12:52 PM EDT Respiratory Rate 16 07/08/2024 12:5 2 PM EDT Oxygen Saturation 97% 07/08/2024 12: 52 PM EDT 3LPM Inhaled Oxygen Concentration - - Weight 65.2 kg (143 lb 11.8 oz) 025 12:52 PM EDT Height 162.6 cm (5' 4 ) 07/08/2024 12:5 2 PM EDT Body Mass Index 24.67 07/08/2024 12:52 PM EDT documented in this encounter Miscellaneous Notes * Progress Notes - Lavern Shoemaker MD - 07/08/2024 1:00 PM EDT Michelle Felipe is a 74 y.o. female who presents for ongoing management to pulmonary outpatient clinic. HPI: 74 y.o. female w/PMHx of SLE c/b pleural effusion (s/p pleurodesis), likely prior bronchiolitis with now stable obstructive lung disease, HFpEF, atrial fibrillation s/p PPM and on eliquis, CAD s/p CABG in 1999, history of spinal hematoma in June 2022 (with ongoing recovery of function) who presents to Pulmonary clinic for follow up. The effusion was initially noted in 2020, at which time she had a thoracentesis; fluid studies werec/w a lymphocyte predominant exudate. In August 2022, she had worsening dyspnea and underwent IR thoracentesis as an outpatient. She then had an admission to [facility] for suicidal ideation, but developed worsening oxygen requirement, persistent left-sided pleural effusion, and supraclavicular LAD. She had a thoracentesis while she was inpatient. Finally, she had another in October 2022 with Chon Rouse. All four have been lymphocyte predominant exudates with otherwise unremarkable fluid studies. Pleuroscopy with pleural biopsy and chemical pleurodesis with iodine was performed on 11/19/2022 in addition to left PleurX placement. 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 PleurX catheter waseventually removed on 01/02/23. Of note she was diagnosed with Lupus by an outside barrel roller several years ago (Dr. Manuel Matos at [facility]), with positive dsDNA by [facility]. She trialed methotrexate but discontinued it due to side effects. She saw [facility] this summer, who did not see any evidence of active disease. It was during this time that she had above issues; she is now on Cellcept. In January 2023 she was admitted with increased dyspnea and hypoxia; Imaging with notable new consolidation in b/l lower lobes L>R with new R sided pleural effusion. Pulmonary was consulted and followed. No tapable pocket of R effusion on pocus. Sputum cx with GNRs that grew H influenza. Treated with antibiotics and discharged home. Since last visit in Nov 2022, has had multiple admissions. Most recently three in month of . She had a fall this winter and was admitted for T12 compression fracture and AHRF 2/ flu A+ 04/18-04/22. Then admitted 04/29-04/30 for AHRF at which time was decided symptoms may be attributable to atelectasis and volume overload. Then presented to Pulm clinic 05/[address] Calero was c/f superimposed bacterial pna in s/o immunosuppression. In ED, found to have wbc 17k, procal 1.84. She wasadmitted 05/13-05/26. Resp cx with MURF. MRSA and nasopharyngeal swab negative. Blood cx positive for strep mitis. TTE completed and w/o vegetations. Chest imaging revealed b/l lower lobes consolidationwith b/l pleural effusions, R moderate in size. She initially was started on cefepime for coverage of HAP then switched to CTX for better coverage of abiotrophia defectiva and streptococcus. She additionally completed 3 days of azithro. Since discharge home, has not taken her blood pressure medicine, diuresis, or immunosuppression. She did take tizanidine this morning. In clinic, she reports confusion, dizziness and weakness. Her blood pressure is notably was 93/49 on automatic cuff, 100/66 with manual exam. She was AOX4. She declined ED evaluation which was recommended for further assessment of low bp. Interval History: After last visit, had increase in O2 use and dyspnea, lightheadedness. Underwent MRI of thoracic spine which revealed increasing effusion. Was recommended to present to ED for evaluation. Underwent thoracentesis of R side effusion with removal of 1L of fluid. Labs c/w lymphocytic transudate similarto prior (protein 2.3, LDH 82). Since drainage, had minimal improvement in symptoms and continues to require 3L NC at all times. Describes sleeping upright in a recliner with smothering sensation laying flat, loss of appetite and feeling full easily, ankle swelling, chest pressure as if an elephantis on her chest. She has had increase in skin lesions along with oral ulcers and hoarse voice. She denies sputum production (outside of this morning), pleuritic chest pain. She is taking amlodipine and resumed MMF and plaquenil. She is off lasix. Pertinent Social History: [place] in [place] [place]. Three dogs but no cats or birds. Never smoker. No other recreational inhalational use. 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 No true asbestos exposure. Past Medical History: Diagnosis Date 2018-nCoV acute respiratory disease 05/07/2022 Alcohol use Allergic 1973 Anemia Anxiety Arthritis Asthma Cellulitis 02/13/2024 Cellulitis of right leg 02/12/2024 CHF (congestive heart failure) (CMS/HCC) Chronic respiratory failure 2019 Clotting disorder (CMS/HCC) Congenital malformation COPD (chronic obstructive pulmonary disease) (CMS/HCC) 2019 Coronary artery disease CTS (carpal tunnel syndrome) Dental disease Depression Diabetes mellitus type I (CMS/HCC) Disease of thyroid gland Eczema Fracture of left proximal fibula 04/09/2021 - Left proximal fibula fracture on 02/2021 after a mechanical fall. - Established with orthopedic surgery, no surgical intervention, WBAT. Heart disease Hepatitis B 1960 HL (hearing loss) Hypertension Hyperthyroidism 1960 Hypothyroidism 1960 Infectious viral hepatitis Myocardial infarction (CMS/HCC) Peripheral neuropathy Pneumonia 06/01 Post-menopausal bleeding 05/08/2021 - Isolated episode of vaginal spotting in early 2021, no recurrence. Was evaluated with OBGYN in 10/2021, no intervention at this time, if recurrence of bleeding will likely require endometrial biopsy. 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 Scleritis. - Needs THOMPSON eye exam. - Was ableto get patient in with [facility] ophthalmology right after our clinic appointment (where [...] given lack of other syste Seasonal allergies Skin cancer 2023 Sleep apnea, obstructive Stroke (CMS/HCC) Systemic lupus erythematosus, unspecified (CMS/HCC) Lupus Varicella Visual impairment Past Surgical History: Procedure Laterality Date ADENOIDECTOMY ADRENAL GLAND SURGERY ANKLE FRACTURE SURGERY BREAST BIOPSY Right 2013 u/s core benign CARDIAC PACEMAKER PLACEMENT N/A Pacemaker Placement from [facility] CARPAL TUNNEL RELEASE N/A Neuroplasty Decompression Median Nerve At Carpal Tunnel from [facility] CERVICAL BIOPSY W/ LOOP ELECTRODE EXCISION 2010 SECTION, CLASSIC 1976, 1979 SECTION, LOW TRANSVERSE N/A Section from [facility] COLONOSCOPY N/A Complete Colonoscopy from [facility] CORONARY ARTERY BYPASS GRAFT N/A CABG from [facility] EYE SURGERY N/A Eye Surgery from [facility] FRACTURE SURGERY SPINE SURGERY THORACENTESIS TOE SURGERY Left 02/07/2024 hematoma removal of upper skin on L big toe TONSILLECTOMY N/A Tonsillectomy from [facility] Family History Problem Relation Name Age of Onset Conversions - Other Mother gracy stamper alfredito kelin Goiter (Diffuse Nontoxic) Heart disease Mother gracy stamper alfredito kelin Hypertension Mother gracy stamper alfredito kelin Stroke Mother gracy stamper alfredito kelin COPD Mother gracy stamper alfredito kelin Alpha-1 antitrypsin deficiency Mother gracy stamper alfredito kelin Arthritis Father Doron [facility] [employer] Hypercholesterolemia Father Doron E [facility] [employer] Obesity Father Doron E Alfredito COPD Father Doron E Alfredito Alcohol abuse Father Doron E Alfredito Diabetes Sibling Cancer Other Doron E [facility] [employer] Conversions - Other Other Goiter (Diffuse Nontoxic) Heart disease Other Gracy Marry Stamper [facility] [employer] Kelin 10-point ROS unremarkable unless otherwise stated above. Objective: Physical Exam: Visit Vitals BP 109/71 Pulse 67 Temp 36.7 ??C (98.1 ??F) (Oral) Ht 1.626 m (5' 4 ) Wt 65.2 kg (143 lb 11.8 oz) SpO2 97% Comment: 3LPM BMI 24.67 kg/m?? Physical Exam GEN: nontoxic chronically ill appearing female EYES: anitcteric sclera HENT: MMM RESP: normal work of breathing on room air, CTAB, reduced air movement posteriorly of lower half ofR thorax and lower L posterior lung choi CV: RRR, holosystolic murmur present MSK: no pedal edema SKIN: thinning of skin with ecchymoses with central clearing and few red punctate lesions, no malarrash NEURO: alert and awake, no obvious focal deficits PSYCH: tearful Prior Data Reviewed Personally By Me This Visit: Lab Results Component Value Date WBC 6.54 06/29/2024 HGB 9.7 (L) 06/29/2024 HCT 30.4 (L) 06/29/2024 MCV 96 06/29/2024 PLT 357 06/29/2024 Eos 0.11 Latest Reference Range & Units 02/27/21 10:24 08/08/22 11:18 Specimen Source, Body Fluid Pleural, Left Pleural, Left Color Yellow Yellow Appearance - Clear Clear Volume cc 9.0 100.0 Fluid Container TUBE 3 SPECIMEN RECEIVED IN MISCELLANEOUS CONTAINER Red Blood Cell Count uL 78 96 Total Nucleated Cell Count uL 881 417 Neutrophils % % 2 1 Lymphocytes % % 73 65 Monocytes/Macrophages % % 21 33 Eosinophils % % 0 0 Basophils % % 0 0 Lining/Mesothelial Cells % % 4 1 Neutrophils Absolute uL 18 4 Lymphocytes Absolute uL 643 271 Monocytes/Macrophages Absolute uL 185 138 Eosinophils Absolute uL 0 0 Basophils Absolute uL 0 0 Lining/Mesothelial Cells Absolute uL 35 4 Comment NONE Specimen Type Pleural Fluid Body Fluid Clinical Diagnosis, Body Fluid Pleural effusion Dyspnea with pleural effusion Interpretation, Body Fluid No evidence of malignancy Predominantly chronic inflammation Lymphocytosis A resident was involved in the service. I attest I examined the relevant preparations for the specimens and confirmed the diagnosis or interpretation. - PREDOMINANTLY CHRONIC INFLAMMATION WITH REACTIVE MESOTHELIAL CELLS. - NO EVIDENCE OF MALIGNANCY. A resident was involved in the service. I attest I examined the relevant preparations for the specimens and confirmed the diagnosis or interpretation. Pathologist Signature, Body Fluid COMMENT ONLY COMMENT ONLY pH, Pleural Fluid 7.60 - 7.66 7.49 (L) Albumin, Pleural Fluid g/dL 1.8 2.3 AMYLASE BODY FLUID U/L 6 AMYLASE BODY FLUID SOURCE Pleural fluid Amylase, Pleural Fluid U/L 5 Glucose, Fluid mg/dL 211 228 LDH, Fluid U/L 89 96 Total Protein, Fluid g/dL 3.2 4.1 (L): Data is abnormally low PFT/Miguel Angel: Full PFTs 11/27/23: FVC 2.06, FEV1 1.29, ratio 63%, TLC 3.70, DLCO 8.98. Mild obstruction and restriction, severely reduced diffusion Miguel Angel 04/2023: personally reviewed this visit - moderate obstruction, FEV1 1.15, FVC 1.85 which are stable from prior. DLCO 9.5, increased from prior. [place] 2020: moderate airflow obstruction, no significant response to BD, reduced FEV1 1.[address] Chest 08/2022: large L pleural effusion, no calcified pleural plaques, no emphysema HRCT 04/2023: improved effusions, some pleural thickening, no emphysema, no bronchiectasis, no true mosaicism 02/17/23 MultiOx in clinic: Desat to 88% walking on room air requiring 1L NC to >92% TTE 08/2022 Left Ventricle The left ventricle is normal size. There is normal left ventricular myocardial thickness and mass. There is a small mural thrombus present in the apex. The left ventricular systolic function is normal. The LVEF is visually estimated at 55 - 60%. The left ventricular filling pressure is elevated. The apical wall is akinetic. Right Ventricle The right ventricle is grossly normal in size. The right ventricular systolic function is normal. The estimated global right ventricular systolic function based upon the tricuspid annular plane of systolic excursion (TAPSE) is normal (>=17 mm). The estimated global right ventricular systolic function based upon the TDI maximal systolic velocity is normal (>=9.5 cm/s). Right ventricular systolic pressure is normal (<35mmHg). Left Atrium The left atrial size is severely increased with an indexed volume of >48 mL/m2. The interatrial septum is intact with no evidence for an atrial septal defect. Right Atrium The right atrium is dilated by visual assessment. Aortic Valve The non-coronary cusp is calcified. There is no valvular regurgitation. There is no hemodynamically significant valvular aortic stenosis. Mitral Valve There is severe mitral annular calcification. There is no mitral regurgitation. There is no mitral stenosis. The mean mitral valve pressure gradient is estimated to be 3 mmHg. Tricuspid Valve The tricuspid valve is grossly normal in appearance. There is no tricuspid regurgitation. There is no tricuspid stenosis. Pulmonic Valve The pulmonic valve is grossly normal. There is no pulmonic regurgitation. There is no pulmonic stenosis. Great Vessels The aortic root is normal in size. In the maximally visualized portion, the ascendingaorta appears normal in size. In the maximally visualized portion, the aortic arch appears normal in size. The main pulmonary artery is normal in size. IVC/SVC Based on the IVC size and respiratory variation, the estimated right atrial pressure is 3mmHg. Pericardium No pericardial effusion. Echo, Adult Transthoracic Complete Result Date: 05/17/2024 Left Ventricle: The left ventricle is normal size. There is normal left ventricular myocardial thickness and mass. There is a small, fixed, mural mass present in the apex consistent with thrombus. The left ventricular systolic function is normal. The LVEF is visually estimated at 60 - 65%. Unable to assess diastolic function due to mitral valve disease. Right Ventricle: The right ventricle is normal in size. The right ventricular systolic function is normal. Right ventricular systolic pressure is moderately elevated (50-70mmHg). The estimated right ventricular systolic pressure is 55 mmHg. Aortic Valve: There is mild aortic valve regurgitation. Left Atrium: The left atrial size is severely i ncreased with an indexed volume of >48 mL/m2. Mitral Valve: The leaflets appear thickened. Thereis severe mitral annular calcification. There is mild mitral regurgitation. There is mild mitral stenosis. The mean mitral valve pressure gradient is estimated to be 5 mmHg at a heart rate of 70 bpm.The mitral valve pressure half time is 128 ms. The mitral valve area by pressure half time is estimated to be 1.7 cm2. Compared to the most recently available prior study, and allowing for differences in image quality and technique, LV apical thrombus appears smaller. 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 Thereis a mural mass present in the apex consistent with thrombus. This appears smaller compared to the prior echo of 01/2024.. The left ventricular systolic function is normal. The LVEF as measured by biplane volume is 65%. Echo, Adult Transthoracic Complete Result Date: 02/01/2024 Left Ventricle: Based on the linear dimension and/or 2D volumes, the left ventricle is normal in size. There is normal left ventricular myocardial thickness and mass. There is a small, mural mass present in the apex consistent with thrombus. The left ventricular systolic function is normal. The LVEF is visually estimated at 50 - 60%. Right Ventricle: The right ventricle is grossly normal in size.The right ventricular systolic function is grossly normal. Right ventricular systolic pressure is mildly elevated (35-50mmHg). The estimated right ventricular systolic pressure is 37 mmHg. Aortic Valve: There is mild aortic valve regurgitation. Pericardium: No pericardial effusion. Compared to the most recently available prior study, and allowing for differences in image quality and technique, thrombus seen in apex.. Echo, Adult Transthoracic Complete Result Date: 11/27/2023 Left Ventricle: The left ventricle is normal size. There is normal left ventricular myocardial thickness and mass. No left ventricular mass or thrombus is seen. The left ventricular systolic functionis normal. The LVEF is visually estimated at 55 - 60%. The diastolic function is abnormal. There isgrade II (moderate) diastolic dysfunction. The apical wall is akinetic. Right Ventricle: The right ventricle is normal in size. The right ventricular systolic function is normal. Right ventricular systolic pressure is mildly elevated (35-50mmHg). Intravenous injection of agitated saline demonstratelate appearance of bubbles in the left heart consistent with intrapulmonary shunting. Pericardium: No pericardial effusion. Compared to the most recently available prior study, and allowing for differences in image quality and technique, LV apical thrombus has resolved. Assessment and Plan: 74 y.o. F with complicated pulmonary history including SLE w/ associated pleuritis and recurrent effusion, SLE bronchiolitis with mild obstructive lung disease, chronic hypoxic respiratory failure along with extensive cardiac disease including multivessel CAD c/b CABG, PCI, 3rd degree heart block s/p PPM, afib, LV thrombus with progressive dyspnea and ongoing O2 use. #Acute on chronic hypoxic respiratory failure #Recurrent right side pleural effusion in s/o #Suspected volume overload #Possible SLE flare Suspect symptoms and ongoing O2 is multifactorial in s/o volume overload, possible atypical angina,and possible SLE pleuritis. Has pulmonary edema on imaging along with recurrent effusion that was transudative by lytes on most recent tap 06/29/24 as compared to prior SLE pleural effusions all exudative. Discussed with IP DRUM CLEANER may benefit from additional outpatient thoras vs pleurx or chemical pleurodesis but needs further cardiac evaluation and would need plan for warfarin prior to procedure. Discussed findings of CXR today with patient that fluid has already begun to reaccumulate - Resume lasix 40mg daily - Repeat CXR on 07/12/24 AM. If no improvement, will plan for direct admission to medicine for further inpatient evaluation including thoracentesis, cardiology consult for possible RHC and possible coronary evaluation, and rheum input - Increase MMF to 1500mg bid, continue plaquenil - Have messaged primary rheum provider re MMF change and to discuss if any utility to use prednisone in the interim #Lupus related Left Pleural effusion since 2020, s/p Chemical Pleurodesis S/p thoracentesis x4 at least of L side, all exudative by Lights; Cytology negative x4; lymphocyte predominant x4, ADA was negative, TG negative, all cultures negative. Subsequently Pleuroscopy with pleural biopsy and chemical pleurodesis with iodine was performed on 11/19/2022 in addition to left PleurX placement. 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 PleurX catheter was eventuallyremoved on 01/02/23. No significant re-accumulation on most recent CTA chest 07/2023 - Cont cellcept/plaquenil - See above re right sided effusion #SLE related Bronchiolitis with obstructive lung disease -Never smoker, no emphysema on imaging and no response to BD/clinical history to support asthma so unlikely to be COPD or asthma -Concerning for other small airways disease/bronchiolitis -Lab-work to date: MOON, Myositis panel [will contain ENA1 (epps and inspector final assembly mechanical), ENA2 (ro/la/ssa/ssb), U3-FACILITIES CLERK], RF, anti-CCP, Immunoglobulins, [place] allergen screen, RAST, IgE, Aspergillus. P-ANCA, ds-DNA, MOON positive. MPO/PR3 negative. -Continue Trelegy inhaler, benefits from ICS component (prior exacerbations and eosinophils >300) - Patient completed MultiOx in clinic today 07/08/24: desaturation to 83% on room air with ambulation, requires 3L NC for spo2 >90%. The patient is medically benefiting from home and ambulatory oxygen therapy and the therapy is medically necessary. I have submitted DME order for POC inogen O2 portable concentrator. - Discuss RSV and PCV20 vaccinations at next visit Follow up in clinic in 6 weeks. Time Spent: I personally spent a total of 60 minutes on this encounter. This time includes face to face with patient, counseling and discussion and/or coordination of care. Lavern Shoemaker MD Pulmonary and Critical Care Fellow, PGY5 PICC [phone] Cosigned by Art Olmos MD at 07/08/2024 10:58 PM EDT Associated attestation - Art Olmos MD - 07/08/2024 10:58 PM EDT This is a 74 y/o Female with CAD, HFpEF (s/p CABG and dual chamber PPM), developed SLE late in her life presents today for follow up of She has had skin lesions, oral ulcers and recurrent pleural effusions. She's had a left sided PleurX in the past which has since been removed. She's also had obstructive airway disease, deemed to be secondary to bronchiolitis 2/2 Lupus and is on Trelegy. She's been on MMF and HCQ for her Lupus. She had Flu A in Mar, 2024 then had a fall related femur fracture. Thereafter she developed a bacterial PNA with Strep mitis bacteremia. She was noted to have a right sided pleural. During this wholeperiod, her immunosuppression has been held. Her chest imaging shows persistent right pleural effusion which with thoracentesis was a non infected persistent lymphocytic effusion. It was negative forpulmonary emboli or PNA. However, it was noted that on echo she has mitral stenosis, MR and signs of RV pressure overload. Today, she's more dyspneic, needing 4LPM supplemental O2 and having more skin lesions and oral ulcers. We will get a Multi Ox on her to gauge her home O2 requirement. We repeated a CXR today which shows worsening Right pleural effusion. 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 We advised her to resume Lasix at home and then repeat a CXR net Friday. If effusion still present, would consider direct admitting her for thoracentesis. Given her valvular abnormalities, elevated RVSP and signs of heart failure we are concerned this maybe cardiac in etiology and she may need a heart cath. She's seeing cardiology in 4 weeks from now but if she gets directly admitted we will try to coordinate it inpatient. In the meantime, we will increase her MMF from 1gm BID to 1.5gm BID. I spent 45 minutes of my personal time today on reviewing chart and images, talking to, examining and educating patient and coordinating their care. This time excludes time spent discussing case withresident/fellow/ALEJANDRO. I saw the patient with resident/fellow/ALEJANDRO and discussed the case and management plan. I agree withthe above findings and recommendations. Signature: Art Olmos MD Faculty and Physician Division of Pulmonary, Critical Care and Sleep Medicine [facility] documented in this encounter Plan of Treatment Upcoming Encounters Date Type Department Care Team (Late st Contact Info) Description 09/08/2024 11:20 AM EDT Office Visit [facility] Internal Medicine [address] [place] [address] Alisa Kunz, DO [address] [place] [phone] 10/07/2024 4:00 PM EDT Appointment Cardiac Imaging [address] [place] [address] 10/14/2024 4:00 PM EDT Office Visit [facility] Medicine Specialties [address] [place] [address] Lavern Shoemaker MD [address] [place] [address] 10/27/2024 1:40 PM EDT Office Visit [facility] Endocrinology [address] [place] [address] Anne-Marie Kolb, DRUM CLEANER [address] [place] [address] 11/29/2024 10:20 AM EDT Office Visit [facility] Internal Medicine [address] [place] [address] Alisa Kunz DO [address] [place] [address] 02/02/2025 10:30 AM EST Office Visit [facility] Medicine Specialties [address] [place] [address] Sadiq Osborne, MBBS [address] [place] [address] Scheduled Orders Name Type Priority Associated Diagnoses Orde r Schedule Multiple Determination Oximetry PFT Routine Chronic hypoxic respiratory failure Obstructive lung disease (CMS/HCC) 1 Occurrences starting 07/08/2024 until 01/08/2026 Scheduled Referrals Name Type Priority Associated Diagnoses Orde r Schedule Follow Up Pulm Outpatient Referral Routine Recurrent pleural effusion on left Chronic hypoxic respiratory failure Expected: 08/19/2024, Expires: 08/08/2025 documented as of this encounter Results * XR Chest 2 Views (07/12/2024 10:11 AM EDT) Anatomical Region Laterality Modality Chest Digital Radiogra phy Impressions 07/12/2024 11:55 AM EDT No significant interval change of bilateral pleural effusions.. CRITICAL RESULT: No. COMMUNICATION: Per this written report. Preliminary report signed by Madi León MD on 07/12/2024 10:44 AM By electronically signing this report, I, the attending physician, attest that I have personally reviewed the images/data for the above examination(s) and agree with the final edited report. Drafted by Madi León MD on 07/12/2024 10:43 AM Final report signed by Dominic Mcconnell MD on 07/12/2024 11:55 AM Narrative 07/12/2024 11:55 AM EDT CLINICAL INDICATION: pleural effusion TECHNIQUE: XR CHEST 2 VIEWS COMPARISON: 07/08/2024 FINDINGS: Stable support hardware. Stable mediastinal contours and enlarged cardiac silhouette. Unchanged small bilateral pleural effusions, right greater than left, with associated compressive atelectasis. No new consolidation. No pneumothorax. Mild degenerative changes of the spine. Procedure Note Dominic Mcconnell MD - 07/12/2024 CLINICAL INDICATION: pleural effusion TECHNIQUE: XR CHEST 2 VIEWS COMPARISON: 07/08/2024 FINDINGS: Stable support hardware. Stable mediastinal contours and enlarged cardiacsilhouette. Unchanged small bilateral pleural effusions, right greaterthan left, with associated compressive atelectasis. No new consolidation.No pneumothorax. Mild degenerative changes of the spine. IMPRESSION: No significant interval change of bilateral pleural effusions.. CRITICAL RESULT: No. COMMUNICATION: Per this written report. Preliminary report signed by Madi León MD on 07/12/2024 10:44 AM By electronically signing this report, I, the attending physician, attestthat I have personally reviewed the images/data for the aboveexamination(s) and agree with the final edited report. Drafted by Madi León MD on 07/12/2024 10:43 AM Final report signed by Dominic Mcconnell MD on 07/12/2024 11:55 AM Art Olmos MD IMG XR PROCEDURES Final Result * XR Chest 2 Views (07/08/2024 2:11 PM EDT) Anatomical Region Laterality Modality Chest Digital Radiogra phy Impressions 07/08/2024 2:45 PM EDT Worsening bilateral pleural effusions, right greater than left. CRITICAL RESULT: No. COMMUNICATION: Per this written report. Drafted by Macho Muir MD on 07/08/2024 2:44 PM Final report signed by Macho Muir MD on 07/08/2024 2:45 PM Narrative 07/08/2024 2:45 PM EDT CLINICAL INDICATION: Pleural effusion, pulmonary edema TECHNIQUE: XR CHEST 2 VIEWS COMPARISON: June 29, 2024. FINDINGS: Worsening bilateral pleural effusions, right greater than left, with associated atelectasis. No pneumothorax. Left chest wall dual lead cardiac pacer. Sternal wires. Procedure Note Macho Muir MD - 07/08/2024 CLINICAL INDICATION: Pleural effusion, pulmonary edema TECHNIQUE: XR CHEST 2 VIEWS COMPARISON: June 29, 2024. FINDINGS: Worsening bilateral pleural effusions, right greater than left, withassociated atelectasis. No pneumothorax. Left chest wall dual lead cardiacpacer. Sternal wires. IMPRESSION: Worsening bilateral pleural effusions, right greater than left. CRITICAL RESULT: No. COMMUNICATION: Per this written report. Drafted by Macho Muir MD on 07/08/2024 2:44 PM Final report signed by Macho Muir MD on 07/08/2024 2:45 PM Art Olmos MD IMG XR PROCEDURES Final Result documented in this encounter Visit Diagnoses Diagnosis Recurrent pleural effusion on left- Primary Chronic hypoxic respiratory failure SLE (systemic lupus erythematosus related syndrome) ([facility]/HCC) Systemic lupus erythematosus Bronchiolitis Acute bronchiolitis due to other infectious organisms Obstructive lung disease ([facility]/HCC) Chronic airway obstruction, not elsewhere classified Systemic lupus erythematosus (SLE) in adult ([facility]) Recurrent pleural effusion on left Recurrent pleural effusion on left documented in this encounter Additional Health Concerns Assessment Noted Time PHQ-9 Depression Total Score: 0 06/02/19 25 1:21 PM EDT A fall risk assessment has been complete d for the patient 07/08/2024 1:00 PM EDT A Body Mass Index follow-up plan has been documented for the patient 07/08/2024 1:55 PM EDT documented as of this encounter Care Teams Visual Display Manager Relationship Specialty Start Date End Date Alisa Kunz DO [address] [place] [phone] PCP - General Internal Medicine 03/13/21 Kodi Bustos DO [address] [address] Surgeon Cardiothoracic Surgery 11/06/22 Sujit Arriola MD [address] [place] [phone] Consulting Physician Pulmonary Disease 11/06/22 Suijt Reyes MD [id number] [place] [address] Referring Physician 12/04/22 documented as of this encounter
--- OUTSIDE RECORDS SUMMARY | 2024-07-08 14:02 | XMS_ITS | Encounter Summary ---
Author Organization Healthcare Address [address] [place] [address] Care Team Providers Care Implementation Engineer Name Role Phone Alisa Kunz Torri SOLIS Primary Care Provider [phone] Kodi Bustos DO Unavailable [phone] Sujit Arriola MD Unavailable [phone] Sujit Reyes MD Unavailable [phone] Encounter Details Date Type Department Care Team (Latest Contact Info) Description 07/08/2024 2:02 PM EDT - 07/08/2024 11:59 PM EDT Hospital Encounter [facility] Radiology [address] [place] [address] Recurrent pleural effusion on left Discharge Disposition: Home or Self Care Social History Tobacco Use Types Packs/Day Years [...] How often do you attend chur or scientology services? 1 to 4 times per year 08/30/2022 Do you belong to any clubs o r organizations such as mandaeism groups, unions, fraternal or athletic groups, or [...] Recorded Patient Health Questionnaire-2 Score 0 06/01/2024 [facility] Questionnaire Answer [...] money to buy more. Never true 05/28/19 25 Within the past 12 months, t he [...] place to sleep or slept in a fci (including now)? No 12/30/2023 PHQ-9 Answer Date [...] any time in the past [address] [facility], were you homeless or living in a fci (including now)? No 05/27/2024 CAGE ASSESSMENT Answer Date Recorded Cage unable to access Not on file 07/12/2024 Maximum number of drinks you had on a given occasion in the last month? 0 drinks 07/12/2024 How many alcoholic Beverages do you typically drink in a week? 0 - 7 per week 07/12/2024 Have you ever felt you should CUT down on your d rinking? 0 07/12/2024 Have you been ANNOYED by peo ple criticizing your drinking? 0 07/12/2024 Have you felt GUILTY about your drinking? 0 07/12/2024 Have you had a drink first t anselmo in the morning ([employer] INSPECTOR) to steady your nerves or to get rid of a hangover? 0 07/12/2024 CAGE Questionnaire Score 0 025 Utilities Answer [...] PM EDT documented as of this encounter Functional Status * Calculated C-SSRS Risk Score (Lifetime/Recent) Answer Date of Assessment Author No Risk Indicated 07/15/2024 8:00 AM EDT Britt Turner RN * Question Answer Date of Assessment Author 1. Wish to be (Past 1 Month) No 07/15/2024 8:00 AM EDT Lucia Rosenthal RN 2. Non-Specific Active Suicidal Thoughts (Past 1 Month) No 07/15/2024 8:00 AM EDT Lucia Rosenthal RN 6. Suicidal Behavior (Lifetime) No 07/15/2024 8:00 AM EDT Lucia Rosenthal RN documented as of this encounter Medications at Time of Discharge acetaminophen (Tylenol) 500 MG tablet Take 2 tablets by mouth every 6 hours as needed. brimonidine 0.2 % OP ophthalmic solution Administer 1 drop into both eyes daily. 10 mL 06/22/2024 busPIRone (Buspar) 10 MG tablet Take 1 tablet by mouth 2 times a day as needed. 09/20/2020 Calcium Carb-Cholecalcifero l 600-200 MG-UNIT tablet Take 1 tablet by mouth every morning. cetirizine (ZyrTEC) 10 MG tablet Take 1 tablet by mouth every evening. DULoxetine (Cymbalta) [address] capsule Take 1 capsule (20 mg) by mouth 1 (one) time each day in the morning. Taking 80mg total 90 capsule 3 03/23/2024 6 DULoxetine (Cymbalta) [address] capsule Take 1 capsule by mouth every morning. Do not crush or chew. Take in addition to one 20mg capsule for a total of 80mg daily. ezetimibe (Zetia) 10 MG tablet Take 1 tablet by mouth nightly. 05/29/2020 Fluticasone-Umeclid in-Vilant (Trelegy Ellipta) 200-62.5-25 MCG/ACT aerosol powder Inhale 1 puff 1 (one) time each day in the morning. 180 each 3 10/03/2023 latanoprost (Xalatan) 0.005 % ophthalmic solution Administer 1 drop into both eyes nightly. levothyroxine (Synthroid, Levoxyl) 125 MCG tablet Take 1 tablet (125 mcg) by mouth 1 (one) time each day before breakfast. 90 tablet 3 12/31/2023 metoprolol succinate XL (Toprol-XL) 25 MG 24 hr tablet Take 1 tablet by mouth every morning. 04/13/2020 nitroglycerin (Nitrostat) 0.[address] 1 tablet under the tongue every 5 minutes as needed for chest pain. oxygen (O2) gas Inhale 2 L nightly. via nasal canula Pitavastatin Calcium (Livalo) 4 MG tabletIndications:T ype 1 diabetes mellitus with other specified complication (CMS/HCC),Dyslipide romana Take 1 tablet by mouth 1 (one) time each day. 90 tablet 3 07/07/2023 diclofenac (Voltaren) 1 % topical gel Place 1-2 g on the skin 2 (two) times a day. Apply as directed to Lower Back 100 g 3 04/22/2024 5 amLODIPine (Norvasc) 5 MG tablet Take 1 tablet by mouth every morning. 06/14/2024 5 folic acid (Folvite) 1 MG tablet Taking 1 tablet five days of the week 180 tablet 02/04/2024 5 furosemide (Lasix) 40 MG tablet Take 1 tablet (40 mg) by mouth daily. 30 tablet 05/26/2024 5 gabapentin (Neurontin) 300 MG capsule Take 1 capsule during the day and 3 capsules at night. 120 capsule 2 04/09/2024 5 hydroxychloroquine (Plaquenil) 200 MG tabletIndications:S ystemic lupus erythematosus (SLE) in adult ([facility]) Take 1 tablet (200 mg) by mouth 1 (one) time each day. 90 tablet 1 03/12/2024 5 insulin glargine (Toujeo SoloStar) 300 UNIT/ML injection pen (1 UNIT DIAL)Indications:Ty pe 1 diabetes mellitus with hyperglycemia ([facility]) Inject 13 Units under the skin daily. 4.5 mL 2 04/26/2024 5 insulin lispro (HumaLOG KWIKPEN) 100 UNIT/ML injection penIndications:Type 1 diabetes mellitus with hyperglycemia ([facility]) Inject 3-4 units before breakfast and lunch, 2-3 units before dinner and 1:75>160 mg/dl. Max tdd 30 units 15 mL 2 04/26/2024 5 Insulin Pen Needle (Pen Wallace) 30G X 5 MM misc use 4 per day 05/13/2019 5 losartan (Cozaar) 50 MG tablet Take 1 tablet (50 mg) by mouth daily. 30 tablet 1 05/26/2024 5 methocarbamol (Robaxin) 500 MG tablet Take 1 tablet (500 mg) by mouth 3 (three) times a day. 90 tablet 1 04/22/2024 5 mycophenolate (CellCept) 500 MG tabletIndications:S ystemic lupus erythematosus (SLE) in adult ([facility]) Take 3 tablets by mouth 2 times a day. 180 tablet 07/08/2024 5 tiZANidine (Zanaflex) 2 MG tabletIndications:T 12 burst fracture ([facility]) Take 1 tablet by mouth every 8 hours as needed for muscle spasms. 60 tablet 1 05/27/2024 5 warfarin (Coumadin) 5 MG tablet Take 7.5mg on Mondays (1.5 tablets) and 5mg the rest of the week and follow up with your warfarin pharmacist. 05/26/2024 5 documented as of this encounter Plan of Treatment Upcoming Encounters Date Type Department Care Team (Late st Contact Info) Description 09/08/2024 11:20 AM EDT Office Visit [facility] Internal Medicine [address] [place] [phone] Alisa Kunz, DO [address] [facility] [address] [place] [address] 10/07/2024 4:00 PM EDT Appointment Cardiac Imaging [address] [place] [address] 10/14/2024 4:00 PM EDT Office Visit [facility] Medicine Specialties [address] [phone] Lavern Shoemaker MD [address] [place], [place] [phone] 10/27/2024 1:40 PM EDT Office Visit [facility] Endocrinology [address] [place] [address] Anne-Marie Kolb L, PUBLIC WORKS COMMISSIONER [address] [facility] [address] [place] [address] 11/29/2024 10:20 AM EDT Office Visit [facility] Internal Medicine [address] [place] [address] Alisa Kunz, DO [address] [place] [address] 02/02/2025 10:30 AM EST Office Visit [facility] Medicine Specialties [address] [facility] [address] [place] [address] Sadiq Osborne, SHANA [address] [place], [place] [id number] documented as of this encounter Procedures Procedure Name Priority Date/Time Associated Diagnosis Comments XR CHEST 2 VIEWS Routine 07/08/2024 2:11 PM EDT Recurrent pleural effusion on left documented in this encounter Results * XR Chest 2 Views (07/08/2024 2:11 [...] Visit Diagnoses Diagnosis Recurrent pleural effusion on left documented in this encounter Additional Health Concerns Assessment Noted Time PHQ-9 Depression Total Score: 0 06/02/19 1:21 PM EDT A fall risk assessment has been complete d for the patient 07/08/2024 1:00 PM EDT A Body Mass Index follow-up plan has been documented for the patient 07/08/2024 1:55 PM EDT documented as of this encounter Care Teams Implementation Engineer Relationship Specialty Start Date End Date Alisa Kunz DO [address] [place] [address] PCP - General Internal Medicine 03/13/21 Kodi Bustos DO [address] [address] Surgeon Cardiothoracic Surgery 11/06/22 Sujit Arriola MD [address] [place] [address] Consulting Physician Pulmonary Disease 11/06/22 Sujit Reyes MD [address] [place] [address] Referring Physician 12/04/22 documented as of this encounter
--- OUTSIDE RECORDS SUMMARY | 2024-07-12 09:51 | XMS_ITS | Encounter Summary ---
Author Organization Healthcare Address [address] [place] [address] Care Team Providers Care Research Laboratory Technician Name Role Phone Ze Alisa Wild DO Primary Care Provider [phone] Kodi Bustos DO Unavailable [phone] Sujit Arriola MD Unavailable [phone] Sujit Reyes MD Unavailable [phone] Reason for Visit * Auth/Cert (Routine) Specialty Diagnoses / Procedures Referred By Luis Armando t Referred To Contact Diagnoses Acute on chronic hypoxic respiratory failure acute hypoxic respiratory failure; right pleural effusion MVR Mason Vaughan MD [address] [place] [address] Phone: tel: fax: [facility] [address] [place] [address] Phone: tel: Referral ID Status Reason Start Date Expiration Date Visits Re quested Visits Authorized [id number] 1 1 Encounter Details Date Type Department Care Team (Latest Contact Info) Description 07/12/2024 9:51 AM EDT - 07/12/2024 1:11 PM EDT [facility] [address] [place] [address] Recurrent pleural effusion on left Discharge Disposition: [...] week 08/30/2022 How often do you attend [facility] or sabian[facility] services? 1 to 4 times per year 08/30/2022 Do you belong to any clubs o r organizations such as taoism groups, unions, fraternal or athletic groups, or [...] Recorded Patient Health Questionnaire-2 Score 0 06/01/2024 [facility] [place] [facility] Occup[facility] - Occupational Stress [...] place to sleep or slept in a nursing home (including now)? No 12/30/2023 PHQ-9 Answer Date [...] time in the past 12 m [facility], were you homeless or living in a nursing home (including now)? No 05/27/2024 CAGE ASSESSMENT Answer [...] drink first t anselmo in the morning (EYE-DIFFUSION OPERATOR) to steady your nerves or to get rid of a hangover? 0 07/12/2024 CAGE Questionnaire Score 0 025 Utilities Answer Date Recorded In the past 12 months has th [employer], gas, oil, or water company threatened to [...] (Past 1 Month) No 07/15/2024 8:00 AM JANET Lucia Rosenthal RN 2. Non-Specific Active Suicidal Thoughts (Past 1 Month) No 07/15/2024 8:00 AM Lucia Pedroza RN 6. Suicidal Behavior (Lifetime) No 07/15/2024 8:00 AM JANET Lucia Rosenthal RN documented as of this encounter Medications at Time of Discharge acetaminophen (Tylenol) 500 MG tablet Take 2 tablets by mouth every 6 hours as needed. aspirin 81 MG EC tablet Take 1 tablet by mouth every evening. brimonidine 0.2 % OP ophthalmic solution Administer 1 drop into both eyes daily. 10 mL 06/22/2024 busPIRone (Buspar) 10 MG tablet Take 1 tablet by mouth 2 times a day as needed. 09/20/2020 Calcium Carb-Cholecalcifer ol 600-200 MG-UNIT tablet Take 1 tablet by mouth every morning. cetirizine (ZyrTEC) 10 MG tablet Take 1 tablet by mouth every evening. clobetasol (Temovate) 0.05 % cream Apply 1 Application topically 2 times a day as needed. DULoxetine (Cymbalta) [address] capsule Take 1 capsule (20 mg) by mouth 1 (one) time each day in the morning. Taking 80mg total 90 capsule 3 03/23/2024 DULoxetine (Cymbalta) [address] capsule Take 1 capsule by mouth every morning. Do not crush or chew. Take in addition to one 20mg capsule for a total of 80mg daily. ezetimibe (Zetia) 10 MG tablet Take 1 tablet by mouth nightly. 05/29/2020 Fluticasone-Umecli din-Vilant (Trelegy Ellipta) 200-62.5-25 MCG/ACT aerosol powder Inhale 1 puff 1 (one) time each day in the morning. 180 each 3 10/03/2023 furosemide (Lasix) 40 MG tablet Take 1 tablet by mouth daily. 30 tablet 07/15/2024 latanoprost (Xalatan) 0.005 % ophthalmic solution Administer [...] nasal canula Pitavastatin Calcium (Livalo) 4 MG tabletIndications: Type 1 diabetes mellitus with other specified complication (CMS/HCC),Dyslipid emia Take 1 tablet by mouth 1 (one) time each day. 90 tablet 3 07/07/2023 Probiotic Product (acidophilus probiotic blend) capsule Take 1 capsule by mouth every morning. warfarin (Coumadin) 5 MG tablet Take 2.5 mg on Friday and 5mg the rest of the week and follow up with your warfarin pharmacist. 30 tablet 07/15/2024 diclofenac (Voltaren) 1 % topical gel Place 1-2 g on the skin 2 (two) times a day. Apply as directed to Lower Back 100 g 3 04/22/2024 amLODIPine (Norvasc) 5 MG tablet Take 1 [...] 2 04/09/2024 5 hydroxychloroquine (Plaquenil) 200 MG tabletIndications: Systemic lupus erythematosus (SLE) in adult (CMS/[facility]) Take 1 tablet (200 mg) by mouth 1 (one) time each day. 90 tablet 1 03/12/2024 5 insulin glargine (Toujeo SoloStar) 300 UNIT/ML injection pen (1 UNIT DIAL)Indications:T ype 1 diabetes mellitus with hyperglycemia (CMS/HCC) Inject 13 Units under the skin daily. 4.5 mL 2 04/26/2024 5 insulin lispro (HumaLOG KWIKPEN) 100 UNIT/ML injection penIndications:Typ e 1 diabetes mellitus with hyperglycemia (CMS/HCC) Inject 3-4 units before breakfast and lunch, 2-3 units before dinner and 1:75>160 mg/dl. Max tdd 30 units 15 mL 2 04/26/2024 5 Insulin Pen Needle (Pen Sheridan) 30G X 5 MM [facility] use 4 per day 05/13/2019 5 losartan (Cozaar) 50 MG tablet Take 1 tablet (50 mg) by mouth daily. 30 tablet 1 05/26/2024 5 methocarbamol (Robaxin) 500 MG tablet Take 1 tablet (500 mg) by mouth 3 (three) times a day. 90 tablet 1 04/22/2024 5 mycophenolate (CellCept) 500 MG tabletIndications: Systemic lupus erythematosus (SLE) in adult (CMS/HCC) Take 3 tablets by mouth 2 times a day. 180 tablet 07/08/2024 5 spironolactone (Aldactone) 25 MG tablet Take 0.5 tablets by mouth daily. 30 tablet 07/16/2024 5 tiZANidine (Zanaflex) 2 MG tabletIndications: T12 burst fracture (CMS/HCC) Take 1 tablet by mouth every 8 [...] Description 09/08/2024 11:20 AM EDT Office Visit [facility] Internal Medicine [address] [place] [id number] Alisa Kunz DO [address] [place] [phone] 10/07/2024 4:00 PM EDT Appointment Cardiac Imaging [address] [place] [address] 10/14/2024 4:00 PM EDT [facility] [address] [place] [id number] Lavern Shoemaker MD [address], [place] [id number] 10/27/2024 1:40 PM EDT Office Visit [facility] [address] [place] [phone] Anne-Marie Kolb, [employer] SUPERVISOR [address] [place] [address] 11/29/2024 10:20 AM EDT Office Visit [facility] [address] [place] [address] Alisa Kunz L, DO [address] [place] [address] 02/02/2025 10:30 AM EST [facility] [address] [place] [address] Sadiq Osborne, MBBS [address] [place], [place] [id number] documented as of this encounter Procedures Procedure Name Priority Date/Time Associated Diagnosis Comments XR CHEST 2 VIEWS Routine 07/12/2024 10:1 1 AM EDT Recurrent pleural effusion on left documented [...] signing this report, I, the attending physician, [email or web address] I have personally reviewed the images/data for [...] plan has been documented for the patient 07/15/2024 2:13 PM EDT documented as of this encounter Care Teams Research Laboratory Technician Relationship Specialty Start Date End Date Alisa Kunz DO [address] [address] PCP - General Internal Medicine 03/13/21 Kodi Bustos DO [address] [address] Surgeon Cardiothoracic Surgery 11/06/22 Sujit Arriola MD [address] [place] [address] Consulting Physician Pulmonary Disease 11/06/22 Sujit Reyes MD [address] [place] [address] Referring Physician 12/04/22 documented as of this encounter
--- OUTSIDE RECORDS SUMMARY | 2024-07-12 13:12 | XMS_ITS | Encounter Summary ---
Author Organization [facility] Address [address] [place] [address] Care Team Providers Care Senior Mobile Solutions Architect Name Role Phone Alisa Kunz Torri DO Primary Care Provider [phone] Kdoi Bustos DO Unavailable [phone] Sujit Arriola MD Unavailable [phone] Sujit Reyes MD Unavailable [phone] Ekaterina Gómez Unavailable Unavailable Reason for Referral * Imaging (Routine) - Pending Review Specialty Diagnoses / Procedures Referred By Contac t Referred To Contact Cardiology Diagnoses Acute on chronic heart failure with preserved ejection fraction (CMS/HCC) Procedures Echo, Adult Transthoracic Complete Marquita Arndt MD [address] [place] [address] Phone: tel: fax: Referral ID Status Reason Start Date Expiration Date Visits Requested Visits Authorized [id number] Pending Review Perform Procedure 07/15/2024 01/14/2026 1 1 Reason for Visit * Reason Comments Irregular Heart Beat * Auth/Cert (Routine) Specialty Diagnoses / Procedures Referred By Contac t Referred To Contact Diagnoses Acute on chronic hypoxic respiratory failure acute hypoxic respiratory failure; right pleural effusion MVR Rajiv Mann MD [address] [place] [address] Phone: tel: fax: [facility] Emergency Department [address] [place] [address] Phone: tel: Referral ID Status Reason Start Date Expiration Date Visits Re quested Visits Authorized [id number] 1 1 Encounter Details Date Type Department Care Team (Late st Contact Info) Description 07/12/2024 1:12 PM EDT - 07/15/2024 5:00 PM EDT Hospital Encounter [facility] Inpatient [address] [place] [id number] Yanet Duff MD [address] [place] [address] Deejay Schneider MD [address] [place] [address] Rajiv Mann MD [address] [place] [address] Marquita Arndt MD [address] [place] [address] Acute hypoxic respiratory failure (Primary Dx); Pleural effusion; LV (left ventricular) mural thrombus; Acute on chronic heart failure with preserved ejection fraction (CMS/HCC) Discharge Disposition: Home or Self Care Social [...] How often do you attend chur or hinduism services? 1 to 4 times per year 08/30/2022 Do you belong to any clubs o r organizations such as tenriism groups, unions, fraternal or athletic groups, or [...] Date Recorded Patient Health Questionnaire-2 Score 0 07/21/2024 [facility] - Occupational Stress Questionnaire Answer [...] place to sleep or slept in a residential (including now)? No 12/30/2023 PHQ-9 Answer Date Recorded Patient Health Questionnaire-9 Score 8 07/21/2024 Housing Stability Vital Sign Answer Hong e Recorded In the last 12 months, was t here a time when you were not able to pay the mortgage or rent on time? No 05/27/2024 In the past 12 months, how m any times have you moved where you were living? 0 05/27/2024 At any time in the past 12 m [facility], were you homeless or living in a residential (including now)? No 05/27/2024 CAGE ASSESSMENT Answer [...] drink first t anselmo in the morning (EYE-BUDDHIST MONK) to steady your nerves or to get [...] Sign Reading Time Taken Comments Blood Pressure 140/64 07/15/2024 3:31 PM EDT Pulse 60 07/15/2024 3:31 PM EDT Temperature 36.7 C (98 F) 07/15/2024 3:31 PM EDT Respiratory Rate 18 07/15/2024 11:38 AM EDT Oxygen Saturation 98% 07/15/2024 3:31 PM EDT Inhaled Oxygen Concentration - - Weight 63 kg (138 lb 14.2 oz) 07/15/2024 6:00 AM EDT Height - - Body Mass Index 23.84 07/08/2024 12:52 PM EDT documented in this encounter Functional Status * Over the past 2 weeks, how often have you been bothered by any of the following problems? Question Answer Date of Assessment Author Little interest or pleasure in doing things Not at all 07/21/2024 9:23 AM EDT Catalino Pedro Feeling down, depressed, or hopeless Not at all 07/21/2024 9:23 AM EDT Catalino Pedro Patient Health Questionnaire -2 Score 0 07/21/2024 9:23 AM EDT Catalino Pedro * Question Answer Date of Assessment Author Trouble falling or staying asleep, or sleeping too much Nearly every day 07/21/2024 9:23 AM EDT Catalino Pedro Feeling tired or having little energy Nearly every day 07/21/2024 9:23 AM Catalino Hendrickson Poor appetite or overeating Several days 07/21/2024 9:23 AM Catalino Hendrickson Feeling bad about yourself - or that you are a failure or have let yourself or your family down Not at all 07/21/2024 9:23 AM Catalino Hendrickson Trouble concentrating on things, such as reading the newspaper or watching television Several days 07/21/2024 9:23 AM Catalino Hendrickson Moving or speaking so slowly that other people could have noticed? Or the opposite - being so fidgety or restless that you have been moving around a lot more than usual. Not at all 07/21/2024 9:23 AM Catalino Hendrickson Thoughts that you would be better off or hurting yourself in some way Not at all 07/21/2024 9:23 AM Loreta Hendrickson in R Patient Health Questionnaire-9 Score 8 07/21/2024 9:23 AM Makeda Hendrickson R * Calculated C-SSRS Risk Score (Lifetime/Recent) Answer Date of Assessment Author No Risk Indicated 07/15/2024 8:00 AM Britt Oconnor RN * If you checked off any problems on this questionnaire so far, Question Answer Date of Assessment Author How difficult have these problems made it for you to do your work, take care of things at home, or get along with other people? Not difficult at all 07/21/2024 9:23 AM Loreta Hendrickson in R * Question Answer Date of Assessment Author 1. Wish to be (Past 1 Month) No 07/15/2024 8:00 AM Lucia Pedroza RN 2. Non-Specific Active Suicidal Thoughts (Past 1 Month) No 07/15/2024 8:00 AM Lucia Pedroza RN 6. Suicidal Behavior (Lifetime) No 07/15/2024 8:00 AM Lucia Pedroza RN documented as of this encounter Medications [...] of the week 180 tablet 02/04/2024 5 gabapentin (Neurontin) 300 MG capsule Take 1 capsule during the day and 3 capsules at night. 120 capsule 2 04/09/2024 5 hydroxychloroquine (Plaquenil) 200 MG tabletIndications: Systemic lupus erythematosus (SLE) in adult ([facility]) Take 1 tablet (200 mg) by mouth 1 (one) time each day. 90 tablet 1 03/12/2024 5 insulin glargine (Toujeo SoloStar) 300 UNIT/ML injection pen (1 UNIT DIAL)Indications:T ype 1 diabetes mellitus with hyperglycemia (CMS/HCC) Inject 13 Units under the skin daily. 4.5 mL 2 04/26/2024 5 insulin lispro (HumaLOG KWIKPEN) 100 UNIT/ML injection penIndications:Typ e 1 diabetes mellitus with hyperglycemia ([facility]/HCC) Inject 3-4 units before breakfast and lunch, 2-3 units before dinner and 1:75>160 mg/dl. Max tdd 30 units 15 mL 2 04/26/2024 5 Insulin Pen Needle (Pen Henderson) 30G X 5 MM misc use 4 per day 05/13/2019 5 mycophenolate (CellCept) 500 MG tabletIndications: Systemic lupus erythematosus (SLE) in adult ([facility]) Take 3 tablets by mouth 2 times a day. 180 tablet 07/08/2024 5 spironolactone (Aldactone) 25 MG tablet Take 0.5 tablets by mouth daily. 30 tablet 07/16/2024 5 documented as of this encounter Miscellaneous Notes * Nursing Note - Britt Rosenthal RN - 07/15/2024 3:27 PM EDT PIVx2 and tele removed. Discharge instructions and meds reviewed. Questions and concerns addressed.Pt belongings packed up and pt waiting in room for ride. April JAMA * Discharge Summary - Tutu Beltran MD - 07/15/2024 1:51 PM EDT Images from the original note were not included. Hospitalization Admit Date/Time: 07/12/2024 1:12 PM Admitting Attending: Rajiv Mann Discharge Date: 07/15/2024 Discharge Attending Physician: Marquita Arndt MD PCP name and Address: Alisa Kunz DO [address] [address] Referring provider name and address: Lavern Shoemaker MD [address] [place] [address] Chief Concern, Brief History of Present Illness, and Hospital Course Michelle Felipe is a 74 y.o. female with a hx of HFpEF, SLE, CAD s/p post CABG, LV thrombus on warfarin and chronic pleural effusion who presents with acute on chronic hypoxemic respiratory failurelikely secondary to worsening chronic pleural effusion. Admitted for transition from warfarin to heparin drip for therapeutic thoracentesis as well as work up for HFpEF exacerbation vs SLE flare as cause of decompensation. #Acute on Chronic Hypoxemic Respiratory Failure #Progressive R Exudative Pleural Effusion/HFpEF - Presented with 1 week of worsening dyspnea on exertion. Increased home O2 requirement - Likely due to worsening chronic R-sided pleural effusion - Chronic lymphocytic-predominant effusion since 2020; no response to outpatient Lasix trial with Pot Room Supervisor -Hx labs, physical exam not suggestive of acute lupus flare. -Diuresed w/ 60 mg IV lasix for 3 days with symptomatic improvement -Cardiology consulted -Started spironolactone 25 mg daily for HFpEF medical optimization. Patient not a candidate for Jiardance due to T1DM -Held warfarin for therapeutic thoracentesis with interventional pulmonogy when INR at subtherapeutic level. -Thoracentesis performed 07/15, 900 mL of bronze fluid drained -Weaned supplemental O2 back to baseline of 2L -Echo obtained on day of discharge; largely stable from prior Plan: -Lasix 40 mg daily -Continue spironolactone 25 mg daily -TTE ordered to be completed outpatient -Cardiology f/u scheduled -Follow up with pulmonology -Pleural fluid studies pending - Home inhalers continued; oxygen needs are stable -Restart warfarin on discharge (for A fib); bridging not indicated. Of note, patient has prior diagnosis of an LV apical thrombus on echo from 05/2024; cardiology suspects that this may be trabeculations and not a thrombus #SLE - No clinical or lab evidence of active flare - C3/C4, CRP normal; UA similar to prior results Plan: -Rheumatology follow up scheduled -Continue Cellcept and hydroxychloroquine Chronic Medical Conditions: Hypothyroidism: Continue levothyroxine DM: Continue glargine 13 u nightly + 3 units w/ meals + sliding scale HLD: Continue ezetimibe Depression/Anxiety: Continue Cymbalta and buspar Surgeries and Procedures Procedures performed in this encounter Procedures Thoracentesis Medication List .. acetaminophen 500 MG tablet Commonly known as: Tylenol Take 2 tablets by mouth every 6 hours as needed. acidophilus probiotic blend capsule Take 1 capsule by mouth every morning. amLODIPine 5 MG tablet Commonly known as: Norvasc Take 1 tablet by mouth every morning. aspirin 81 MG EC tablet Take 1 tablet by mouth every evening. brimonidine 0.2 % ophthalmic solution Commonly known as: AlphaGAN P Administer 1 drop into both eyes daily. busPIRone 10 MG tablet Commonly known as: Buspar Take 1 tablet by mouth 2 times a day. Calcium Carb-Cholecalciferol 600-200 MG-UNIT tablet Take 1 tablet by mouth every morning. cetirizine 10 MG tablet Commonly known as: ZyrTEC Take 1 tablet by mouth every evening. clobetasol 0.05 % cream Commonly known as: Temovate Apply 1 Application topically 2 times a day as needed. * DULoxetine [address] capsule Commonly known as: Cymbalta Take 1 capsule by mouth every morning. Do not crush or chew. Take in addition to one 20mg capsule for a total of 80mg daily. * DULoxetine [address] capsule Commonly known as: Cymbalta Take 1 capsule (20 mg) by mouth 1 (one) time each day in the morning. Taking 80mg total ezetimibe 10 MG tablet Commonly known as: Zetia Take 1 tablet by mouth nightly. folic acid 1 MG tablet Commonly known as: Folvite Taking 1 tablet five days of the week furosemide 40 MG tablet Commonly known as: Lasix Take 1 tablet by mouth daily. gabapentin 300 MG capsule Commonly known as: Neurontin Take 1 capsule during the day and 3 capsules at night. hydroxychloroquine 200 MG tablet Commonly known as: Plaquenil Take 1 tablet (200 mg) by mouth 1 (one) time each day. insulin lispro 100 UNIT/ML injection pen Commonly known as: HumaLOG KWIKPEN Inject 3-4 units before breakfast and lunch, 2-3 units before dinner and 1:75>160 mg/dl. Max tdd30 units latanoprost 0.005 % ophthalmic solution Commonly known as: Xalatan Administer 1 drop into both eyes nightly. levothyroxine 125 MCG tablet Commonly known as: Synthroid, Levoxyl Take 1 tablet (125 mcg) by mouth 1 (one) time each day before breakfast. metoprolol succinate XL 25 MG 24 hr tablet Commonly known as: Toprol-XL Take 1 tablet by mouth every morning. mycophenolate 500 MG tablet Commonly known as: CellCept Take 3 tablets by mouth 2 times a day. nitroglycerin 0.4 MG SL tablet Commonly known as: Nitrostat Place 1 tablet under the tongue every 5 minutes as needed for chest pain. oxygen gas Commonly known as: O2 Inhale 2 L nightly. via nasal canula Pen Henderson 30G X 5 MM misc use 4 per day Pitavastatin Calcium 4 MG tablet Commonly known as: Livalo Take 1 tablet by mouth 1 (one) time each day. spironolactone 25 MG tablet Commonly known as: Aldactone Take 0.5 tablets by mouth daily. Start taking on: July 16, 2024 Waldemar SoloStar 300 UNIT/ML injection pen (1 UNIT DIAL) Generic drug: insulin glargine Inject 13 Units under the skin daily. Trelegy Ellipta 200-62.5-25 MCG/ACT aerosol powder Generic drug: Ftkhwqbyjhe-Ddraomtpb-Mnifds Inhale 1 puff 1 (one) time each day in the morning. warfarin 5 MG tablet Commonly known as: Coumadin Take 2.5 mg on Friday and 5mg the rest of the week and follow up with your warfarin pharmacist. * This list has 2 medication(s) that are the same as other medications prescribed for you. Read thedirections carefully, and ask your doctor or other care provider to review them with you. . diclofenac 1 % topical gel Commonly known as: Voltaren Place 1-2 g on the skin 2 (two) times a day. Apply as directed to Lower Back Where to Get Your Medications These medications were sent to [facility] - [address] [address] furosemide 40 MG tablet spironolactone 25 MG tablet warfarin 5 MG tablet Discharge Diagnosis Medical Problems Active and Resolved Hospital Problems Hospital * (Principal) Acute on chronic hypoxic respiratory failure Post Discharge Instructions Please continue taking lasix 40 mg and spironolactone 25 mg daily in addition to resuming your homedose of warfarin. We have not made any other medication changes. Please follow up with your PCP, embossing clerk, and stitcher around. Outpatient Follow-Up Future Appointments Date Time Provider Department [place] 07/20/2024 12:40 PM Andra Herman MD [facility] 07/21/2024 9:10 AM Sadiq Osborne [facility] 08/04/2024 10:45 AM Cassius Gonzales MD [facility] 08/04/2024 2:20 PM Anne-Marie Kolb APRN [facility] 08/19/2024 1:30 PM Lavern Shoemaker MD [facility] 09/08/2024 11:20 AM [facility] Kunz [facility] Results Pending At Discharge Pending Labs Order Current Status pH, pleural fluid Collected (07/15/24 0931) Anti-DNA antibody, double-stranded In process Body Fluid Cell Count w/ Diff - Pleural Right In process Cholesterol Fluid Battery In process Cytology - Pleural Right In process Fungal Culture, Sterile Body Fluid (NOT CSF) and JAS In process Epps (ASHLEY) Antibody, IgG In process Triglycerides, body fluid In process Body Fluid Culture and Gram Stain - Pleural Right Preliminary result Pertinent Physical Exam At Time of Discharge Physical Exam Constitutional: General: She is not in acute distress. Appearance: Normal appearance. She is not ill-appearing. HENT: Head: Normocephalic and atraumatic. Nose: Nose normal. Eyes: Conjunctiva/sclera: Conjunctivae normal. Cardiovascular: Rate and Rhythm: Normal rate and regular rhythm. Pulses: Normal pulses. Heart sounds: No murmur heard. Pulmonary: Effort: Pulmonary effort is normal. No respiratory distress. Breath sounds: No wheezing or rales. Comments: Decreased breath sounds over L lower lung field Abdominal: General: Abdomen is flat. Palpations: Abdomen is soft. Musculoskeletal: General: Normal range of motion. Cervical back: Normal range of motion. Right lower leg: No edema. Left lower leg: No edema. Skin: General: Skin is warm and dry. Neurological: General: No focal deficit present. Mental Status: She is alert and oriented to person, place, and time. Psychiatric: Mood and Affect: Mood normal. Behavior: Behavior normal. Discharge Disposition/Condition Disposition: Home with Home Health Condition: Stable (s/sx potential problems absent or manageable) Tutu Beltran, PGY1 Internal Medicine/Pediatrics Cosigned by Marquita Arndt MD at 07/15/2024 8:53 PM EDT Associated attestation - Marquita Arndt MD - 07/15/2024 8:53 PM EDT I saw and evaluated the patient. I discussed the case with the resident/fellow and agree with the findings and plan as documented. I spent >30 minutes of patient care and instruction time in preparation for this discharge. * Lindsey Kevin - Britt Rosenthal RN - 07/15/2024 12:37 PM EDT Problem: Adult Inpatient Plan of Care Goal: Patient-Specific Goal (Individualized) 07/15/2024 1237 by Britt Rosenthal RN Outcome: Ongoing, Progressing 07/15/2024 1222 by Britt Rosenthal RN Outcome: Ongoing, Progressing Goal: Absence of Hospital-Acquired Illness or Injury Outcome: Ongoing, Progressing Goal: Optimal Comfort and Wellbeing Outcome: Ongoing, Progressing Problem: Fall Injury Risk Goal: Absence of Fall and Fall-Related Injury Outcome: Ongoing, Progressing Problem: Pain Acute Goal: Optimal Pain Control and Function Outcome: Ongoing, Progressing * Lindsey Kevin - Britt Rosenthal RN - 07/15/2024 12:22 PM EDT Problem: Adult Inpatient Plan of Care Goal: Patient-Specific Goal (Individualized) Outcome: Ongoing, Progressing Problem: Fall Injury Risk Goal: Absence of Fall and Fall-Related Injury Outcome: Ongoing, Progressing Problem: Pain Acute Goal: Optimal Pain Control and Function Outcome: Ongoing, Progressing * Serena Almeida, Alfa - 07/15/2024 12:13 PM EDT Images from the original note were not included. [id number] Warfarin Brand Name(s): Coumadin??, Jantoven??; also available generically IMPORTANT WARNING: Warfarin may cause severe bleeding that can be life-threatening and even cause . Tell your doctor if you have or have ever had a blood or bleeding disorder; bleeding problems, especially in yourstomach or your esophagus (tube from the throat to the stomach), intestines, urinary tract or bladder, or lungs; high blood pressure; heart attack; angina (chest pain or pressure); heart disease; pericarditis (swelling of the lining (sac) around the heart); endocarditis (infection of one or more heart valves); a stroke or ministroke; aneurysm (weakening or tearing of an artery or vein); anemia (low number of red blood cells in the blood); cancer; chronic diarrhea; or kidney, or liver disease. Also tell your doctor if you fall often or have had a recent serious injury or surgery. Bleeding is more likely during warfarin treatment for people over 65 years of age, and it is also more likely during the first month of warfarin treatment. Bleeding is also more likely to occur for people who take high doses of warfarin, or take this medication for a long time. The risk for bleeding while takingwarfarin is also higher for people participating in an activity or sport that may result in seriousinjury. Tell your doctor and pharmacist if you are taking or plan to take any prescription or nonprescription medications, vitamins, nutritional supplements, and herbal or botanical products (See SPECIAL PRECAUTIONS), as some of these products may increase the risk for bleeding while you are takingwarfarin. If you experience any of the following symptoms, call your doctor immediately: pain, swelling, or discomfort, bleeding from a cut that does not stop in the usual amount of time, nosebleeds or bleeding from your gums, coughing up or vomiting blood or material that looks like coffee grounds, unusual bleeding or bruising, increased menstrual flow or vaginal bleeding, pink, red, or dark brown urine, red or tarry black bowel movements, headache, dizziness, or weakness. Some people may respond differently to warfarin based on their heredity or genetic make-up. Your doctor may order a blood test to help find the dose of warfarin that is best for you. Warfarin prevents blood from clotting so it may take longer than usual for you to stop bleeding if you are cut or injured. Avoid activities or sports that have a high risk of causing injury. Call your doctor if bleeding is unusual or if you fall and get hurt, especially if you hit your head. Keep all appointments with your doctor and the laboratory. Your doctor will order a blood test (PT [prothrombin test] reported as INR [international normalized ratio] value) regularly to check your body's response to warfarin. If your doctor tells you to stop taking warfarin, the effects of this medication may last for 2 to 5 days after you stop taking it. Your doctor or pharmacist will give you the lead person's patient information sheet (Medication Guide) when you begin treatment with warfarin and each time you refill your prescription. Read the information carefully and ask your doctor or pharmacist if you have any questions. You can also visit the Food and Drug Administration (FDA) website (https://www.fda.gov/downloads/Drugs/DrugSafety/lbq895625.pdf) or the lead person's website to obtain the Medication Guide. Talk to your doctor about the risk(s) of taking warfarin. WHY is this medicine prescribed? Warfarin is used to prevent blood clots from forming or growing larger in your blood and blood vessels. It is prescribed for people with certain types of irregular heartbeat, people with prosthetic (replacement or mechanical) heart valves, and people who have suffered a heart attack. Warfarin is also used to treat or prevent venous thrombosis (swelling and blood clot in a vein) and pulmonary embolism (a blood clot in the lung). Warfarin is in a class of medications called anticoagulants ('bloodthinners'). It works by decreasing the clotting ability of the blood. HOW should this medicine be used? Warfarin comes as a tablet to take by mouth. It is usually taken once a day with or without food. Take warfarin at around the same time every day. Follow the directions on your prescription label carefully, and ask your doctor or pharmacist to explain any part you do not understand. Take warfarin exactly as directed. Do not take more or less of it or take it more often than prescribed by your doctor. Call your doctor immediately if you take more than your prescribed dose of warfarin. Your doctor will probably start you on a low dose of warfarin and gradually increase or decrease your dose based on the results of your blood tests. Make sure you understand any new dosing instructions from your doctor. Continue to take warfarin even if you feel well. Do not stop taking warfarin without talking to your doctor. Are there OTHER USES for this medicine? This medication may be prescribed for other uses; ask your doctor or pharmacist for more information. What SPECIAL PRECAUTIONS should I follow? Before taking warfarin, ?? tell your doctor and pharmacist if you are allergic to warfarin, any other medications, or any of the ingredients in warfarin tablets. Ask your pharmacist or check the Medication Guide for a list of the ingredients. ?? do not take two or more medications that contain warfarin at the same time. Be sure to check with your doctor or pharmacist if you are uncertain if a medication contains warfarin or warfarin sodium. ?? tell your doctor and pharmacist what prescription and nonprescription medications, vitamins, andnutritional supplements you are taking or plan to take while taking warfarin. Your doctor may change the doses of your medications or monitor you carefully for side effects. ?? the following nonprescription or herbal products may interact with warfarin: coenzyme Q10 (Ubidecarenone), Echinacea, garlic, Ginkgo biloba, ginseng, goldenseal, and [place]'s wort; omeprazole (Prilosec); famotidine (Pepcid AC); aspirin and nonsteroidal anti-inflammatory drugs (NSAIDS) such as ibuprofen (Advil, Motrin, others) and naproxen (Aleve). Be sure to let your doctor and pharmacist know that you are taking these medications before you start taking warfarin. Do not start any of thesemedications while taking warfarin without discussing with your healthcare provider. ?? tell your doctor if you have or have ever had diabetes. Also tell your doctor if you have an infection, a gastrointestinal illness such as diarrhea, or sprue (an allergic reaction to protein foundin grains that causes diarrhea), or an indwelling catheter (a flexible plastic tube that is placed into the bladder to allow the urine to drain out). ?? Tell your doctor if you are , think you might be , or plan to become while taking warfarin. women should not take warfarin unless they have a mechanical heart valve. Talk to your doctor about the use of effective control while taking warfarin. If you become while taking warfarin, call your doctor immediately. Warfarin may harm the fetus. ?? tell your doctor if you are breast-feeding. ?? if you are having surgery, including dental surgery, or any type of medical or dental procedure,tell the doctor or dentist that you are taking warfarin. Your doctor may tell you to stop taking warfarin before the surgery or procedure or change your dosage of warfarin before the surgery or procedure. Follow your doctor's directions carefully and keep all appointments with the laboratory if your doctor orders blood tests to find the best dose of warfarin for you. ?? ask your doctor about the safe use of alcoholic beverages while you are taking warfarin. ?? tell your doctor if you use tobacco products. Cigarette smoking may decrease the effectiveness of this medication. What SPECIAL DIETARY instructions should I follow? Eat a normal, healthy diet. Some foods and beverages, particularly those that contain vitamin K, can affect how warfarin works for you. Ask your doctor or pharmacist for a list of foods that contain vitamin K. Eat consistent amounts of vitamin K-containing food on a itlh-vm-ewzb basis. Do not eat large amounts of leafy, green vegetables or certain vegetable oils that contain large amounts of vitamin K. Be sure to talk to your doctor before you make any changes in your diet. Talk to your doctor about eating grapefruit and drinking grapefruit juice while taking this medication. What should I do IF I FORGET to take a dose? Take the missed dose as soon as you remember it, if it is the same day that you were to take the dose. Do not take a double dose the next day to make up for a missed one. Call your doctor if you morgan dose of warfarin. What SIDE EFFECTS can this medicine cause? If you experience any of the following symptoms, or those listed in the IMPORTANT WARNING section, call your doctor immediately: ?? hives ?? rash ?? itching ?? difficulty breathing or swallowing ?? swelling of the face, throat, tongue, lips, or eyes ?? hoarseness ?? chest pain or pressure ?? swelling of the hands, feet, ankles, or lower legs ?? fever ?? infection ?? nausea ?? vomiting ?? diarrhea ?? extreme tiredness ?? lack of energy ?? loss of appetite ?? pain in the upper right part of the stomach ?? yellowing of the skin or eyes ?? flu-like symptoms You should know that warfarin may cause necrosis or gangrene ( of skin or other body tissues).Call your doctor immediately if you notice a purplish or darkened color to your skin, skin changes,ulcers, or an unusual problem in any area of your skin or body, or if you have a severe pain that occurs suddenly, or color or temperature change in any area of your body. Call your doctor immediately if your toes become painful or become purple or dark in color. You may need medical care right away to prevent amputation (removal) of your affected body part. Warfarin may cause other side effects. Call your doctor if you have any unusual problems while taking this medication. What should I know about STORAGE and DISPOSAL of this medication? Keep this medication in the container it came in, tightly closed, and out of reach of children. Store it at room temperature and away from excess heat, moisture (not in the bathroom), and light. Unneeded medications should be disposed of in special ways to ensure that pets, children, and otherpeople cannot consume them. However, you should not flush this medication down the toilet. Instead,the best way to dispose of your medication is through a medicine take-back program. Talk to your pharmacist or contact your local garbage/recycling department to learn about take-back programs in your community. See the FDA's Safe Disposal of Medicines website (https://goo.gl/c4Rm4p) for more information if you do not have access to a take-back program. It is important to keep all medication out of sight and reach of children as many containers (such as weekly pill minders and those for eye drops, creams, patches, and inhalers) are not child-resistant and young children can open them easily. To protect young children from poisoning, always lock safety caps and immediately place the medication in a safe location - one that is up and away and out of their sight and reach. https://www.upandaway.org What should I do in case of OVERDOSE? In case of overdose, call the poison control helpline at . Information is also available online at https://www.poisonhelp.org/help. If the victim has collapsed, had a seizure, has trouble breathing, or can't be awakened, immediately call emergency services at 466. Symptoms of overdose may include the following: ?? bloody or red, or tarry bowel movements ?? spitting or coughing up blood ?? heavy bleeding with your menstrual period ?? pink, red, or dark brown urine ?? coughing up or vomiting material that looks like coffee grounds ?? small, flat, round red spots under the skin ?? unusual bruising or bleeding ?? continued oozing or bleeding from minor cuts What OTHER INFORMATION should I know? Carry an identification card or wear a bracelet stating that you take warfarin. Ask your pharmacistor doctor how to obtain this card or bracelet. List your name, medical problems, medications and dosages, and doctor's name and telephone number on the card. Tell all your healthcare providers that you take warfarin. Do not let anyone else take your medication. Ask your pharmacist any questions you have about refilling your prescription. It is important for you to keep a written list of all of the prescription and nonprescription (afcu-cod-hdgxywj) medicines you are taking, as well as any products such as vitamins, minerals, or otherdietary supplements. You should bring this list with you each time you visit a doctor or if you areadmitted to a hospital. It is also important information to carry with you in case of emergencies. This report on medications is for your information only, and is not considered individual patient advice. Because of the changing nature of drug information, please consult your physician or pharmacist about specific clinical use. [employer] represents that the information provided hereunder was formulated with a reasonable standard of care, and in conformity with professional standards in the field. [employer] makes no representations or warranties, express or implied, including, but not limited to, any implied warranty of merchantability and/or fitness for a particular purpose, with respect to such information and specifically disclaims all such warranties. Users are advised that decisions regarding drug therapy are complex medical decisions requiring the independent, informed decision of an appropriate health rn primary care, and the information is provided for informational purposes only. The entire monograph for a drug should be reviewed for a thorough understanding of the drug's actions, uses and side effects. [employer] does not endorse or recommend the use of any drug.The information is not a substitute for medical care. AHFS?? Patient Medication Information?. ?? Copyright, 2023. [employer]??, [address], [address], [place], [place]. All Rights Reserved. Duplication for commercial use must be authorized by [facility]. Selected Revisions: August 22, 2016. AHFS?? Patient Medication Information?. ?? Copyright, 2024 * Delilah HewittFHSerena Oakes, PharmD - 07/15/2024 12:13 PM EDT Images from the original note were not included. [id number] Warfarin Brand Name(s): Coumadin??, Jantoven??; also available generically IMPORTANT WARNING: Warfarin may cause severe bleeding that can be life-threatening and even cause . Tell your doctor if you have or have ever had a blood or bleeding disorder; bleeding problems, especially in yourstomach or your esophagus (tube from the throat to the stomach), intestines, urinary tract or bladder, or lungs; high blood pressure; heart attack; angina (chest pain or pressure); heart disease; pericarditis (swelling of the lining (sac) around the heart); endocarditis (infection of one or more heart valves); a stroke or ministroke; aneurysm (weakening or tearing of an artery or vein); anemia (low number of red blood cells in the blood); cancer; chronic diarrhea; or kidney, or liver disease. Also tell your doctor if you fall often or have had a recent serious injury or surgery. Bleeding is more likely during warfarin treatment for people over 65 years of age, and it is also more likely during the first month of warfarin treatment. Bleeding is also more likely to occur for people who take high doses of warfarin, or take this medication for a long time. The risk for bleeding while takingwarfarin is also higher for people participating in an activity or sport that may result in seriousinjury. Tell your doctor and pharmacist if you are taking or plan to take any prescription or nonprescription medications, vitamins, nutritional supplements, and herbal or botanical products (See SPECIAL PRECAUTIONS), as some of these products may increase the risk for bleeding while you are takingwarfarin. If you experience any of the following symptoms, call your doctor immediately: pain, swelling, or discomfort, bleeding from a cut that does not stop in the usual amount of time, nosebleeds or bleeding from your gums, coughing up or vomiting blood or material that looks like coffee grounds, unusual bleeding or bruising, increased menstrual flow or vaginal bleeding, pink, red, or dark brown urine, red or tarry black bowel movements, headache, dizziness, or weakness. Some people may respond differently to warfarin based on their heredity or genetic make-up. Your doctor may order a blood test to help find the dose of warfarin that is best for you. Warfarin prevents blood from clotting so it may take longer than usual for you to stop bleeding if you are cut or injured. Avoid activities or sports that have a high risk of causing injury. Call your doctor if bleeding is unusual or if you fall and get hurt, especially if you hit your head. Keep all appointments with your doctor and the laboratory. Your doctor will order a blood test (PT [prothrombin test] reported as INR [international normalized ratio] value) regularly to check your body's response to warfarin. If your doctor tells you to stop taking warfarin, the effects of this medication may last for 2 to 5 days after you stop taking it. Your doctor or pharmacist will give you the lead person's patient information sheet (Medication Guide) when you begin treatment with warfarin and each time you refill your prescription. Read the information carefully and ask your doctor or pharmacist if you have any questions. You can also visit the Food and Drug Administration (FDA) website (https://www.fda.gov/downloads/Drugs/DrugSafety/aak121645.pdf) or the lead person's website to obtain the Medication Guide. Talk to your doctor about the risk(s) of taking warfarin. WHY is this medicine prescribed? Warfarin is used to prevent blood clots from forming or growing larger in your blood and blood vessels. It is prescribed for people with certain types of irregular heartbeat, people with prosthetic (replacement or mechanical) heart valves, and people who have suffered a heart attack. Warfarin is also used to treat or prevent venous thrombosis (swelling and blood clot in a vein) and pulmonary embolism (a blood clot in the lung). Warfarin is in a class of medications called anticoagulants ('bloodthinners'). It works by decreasing the clotting ability of the blood. HOW should this medicine be used? Warfarin comes as a tablet to take by mouth. It is usually taken once a day with or without food. Take warfarin at around the same time every day. Follow the directions on your prescription label carefully, and ask your doctor or pharmacist to explain any part you do not understand. Take warfarin exactly as directed. Do not take more or less of it or take it more often than prescribed by your doctor. Call your doctor immediately if you take more than your prescribed dose of warfarin. Your doctor will probably start you on a low dose of warfarin and gradually increase or decrease your dose based on the results of your blood tests. Make sure you understand any new dosing instructions from your doctor. Continue to take warfarin even if you feel well. Do not stop taking warfarin without talking to your doctor. Are there OTHER USES for this medicine? This medication may be prescribed for other uses; ask your doctor or pharmacist for more information. What SPECIAL PRECAUTIONS should I follow? Before taking warfarin, ?? tell your doctor and pharmacist if you are allergic to warfarin, any other medications, or any of the ingredients in warfarin tablets. Ask your pharmacist or check the Medication Guide for a list of the ingredients. ?? do not take two or more medications that contain warfarin at the same time. Be sure to check with your doctor or pharmacist if you are uncertain if a medication contains warfarin or warfarin sodium. ?? tell your doctor and pharmacist what prescription and nonprescription medications, vitamins, andnutritional supplements you are taking or plan to take while taking warfarin. Your doctor may change the doses of your medications or monitor you carefully for side effects. ?? the following nonprescription or herbal products may interact with warfarin: coenzyme Q10 (Ubidecarenone), Echinacea, garlic, Ginkgo biloba, ginseng, goldenseal, and Daniel's wort; omeprazole (Prilosec); famotidine (Pepcid AC); aspirin and nonsteroidal anti-inflammatory drugs (NSAIDS) such as ibuprofen (Advil, Motrin, others) and naproxen (Aleve). Be sure to let your doctor and pharmacist know that you are taking these medications before you start taking warfarin. Do not start any of thesemedications while taking warfarin without discussing with your healthcare provider. ?? tell your doctor if you have or have ever had diabetes. Also tell your doctor if you have an infection, a gastrointestinal illness such as diarrhea, or sprue (an allergic reaction to protein foundin grains that causes diarrhea), or an indwelling catheter (a flexible plastic tube that is placed into the bladder to allow the urine to drain out). ?? Tell your doctor if you are , think you might be , or plan to become while taking warfarin. women should not take warfarin unless they have a mechanical heart valve. Talk to your doctor about the use of effective control while taking warfarin. If you become while taking warfarin, call your doctor immediately. Warfarin may harm the fetus. ?? tell your doctor if you are breast-feeding. ?? if you are having surgery, including dental surgery, or any type of medical or dental procedure,tell the doctor or dentist that you are taking warfarin. Your doctor may tell you to stop taking warfarin before the surgery or procedure or change your dosage of warfarin before the surgery or procedure. Follow your doctor's directions carefully and keep all appointments with the laboratory if your doctor orders blood tests to find the best dose of warfarin for you. ?? ask your doctor about the safe use of alcoholic beverages while you are taking warfarin. ?? tell your doctor if you use tobacco products. Cigarette smoking may decrease the effectiveness of this medication. What SPECIAL DIETARY instructions should I follow? Eat a normal, healthy diet. Some foods and beverages, particularly those that contain vitamin K, can affect how warfarin works for you. Ask your doctor or pharmacist for a list of foods that contain vitamin K. Eat consistent amounts of vitamin K-containing food on a maug-qo-rcay basis. Do not eat large amounts of leafy, green vegetables or certain vegetable oils that contain large amounts of vitamin K. Be sure to talk to your doctor before you make any changes in your diet. Talk to your doctor about eating grapefruit and drinking grapefruit juice while taking this medication. What should I do IF I FORGET to take a dose? Take the missed dose as soon as you remember it, if it is the same day that you were to take the dose. Do not take a double dose the next day to make up for a missed one. Call your doctor if you morgan dose of warfarin. What SIDE EFFECTS can this medicine cause? If you experience any of the following symptoms, or those listed in the IMPORTANT WARNING section, call your doctor immediately: ?? hives ?? rash ?? itching ?? difficulty breathing or swallowing ?? swelling of the face, throat, tongue, lips, or eyes ?? hoarseness ?? chest pain or pressure ?? swelling of the hands, feet, ankles, or lower legs ?? fever ?? infection ?? nausea ?? vomiting ?? diarrhea ?? extreme tiredness ?? lack of energy ?? loss of appetite ?? pain in the upper right part of the stomach ?? yellowing of the skin or eyes ?? flu-like symptoms You should know that warfarin may cause necrosis or gangrene ( of skin or other body tissues).Call your doctor immediately if you notice a purplish or darkened color to your skin, skin changes,ulcers, or an unusual problem in any area of your skin or body, or if you have a severe pain that occurs suddenly, or color or temperature change in any area of your body. Call your doctor immediately if your toes become painful or become purple or dark in color. You may need medical care right away to prevent amputation (removal) of your affected body part. Warfarin may cause other side effects. Call your doctor if you have any unusual problems while taking this medication. What should I know about STORAGE and DISPOSAL of this medication? Keep this medication in the container it came in, tightly closed, and out of reach of children. Store it at room temperature and away from excess heat, moisture (not in the bathroom), and light. Unneeded medications should be disposed of in special ways to ensure that pets, children, and otherpeople cannot consume them. However, you should not flush this medication down the toilet. Instead,the best way to dispose of your medication is through a medicine take-back program. Talk to your pharmacist or contact your local garbage/recycling department to learn about take-back programs in your community. See the FDA's Safe Disposal of Medicines website (https://goo.gl/c4Rm4p) for more information if you do not have access to a take-back program. It is important to keep all medication out of sight and reach of children as many containers (such as weekly pill minders and those for eye drops, creams, patches, and inhalers) are not child-resistant and young children can open them easily. To protect young children from poisoning, always lock safety caps and immediately place the medication in a safe location - one that is up and away and out of their sight and reach. https://www.upandaway.org What should I do in case of OVERDOSE? In case of overdose, call the poison control helpline at . Information is also available online at https://www.poisonhelp.org/help. If the victim has collapsed, had a seizure, has trouble breathing, or can't be awakened, immediately call emergency services at [phone]. Symptoms of overdose may include the following: ?? bloody or red, or tarry bowel movements ?? spitting or coughing up blood ?? heavy bleeding with your menstrual period ?? pink, red, or dark brown urine ?? coughing up or vomiting material that looks like coffee grounds ?? small, flat, round red spots under the skin ?? unusual bruising or bleeding ?? continued oozing or bleeding from minor cuts What OTHER INFORMATION should I know? Carry an identification card or wear a bracelet stating that you take warfarin. Ask your pharmacistor doctor how to obtain this card or bracelet. List your name, medical problems, medications and dosages, and doctor's name and telephone number on the card. Tell all your healthcare providers that you take warfarin. Do not let anyone else take your medication. Ask your pharmacist any questions you have about refilling your prescription. It is important for you to keep a written list of all of the prescription and nonprescription (tcbr-iaj-dtzmffk) medicines you are taking, as well as any products such as vitamins, minerals, or otherdietary supplements. You should bring this list with you each time you visit a doctor or if you areadmitted to a hospital. It is also important information to carry with you in case of emergencies. This report on medications is for your information only, and is not considered individual patient advice. Because of the changing nature of drug information, please consult your physician or pharmacist about specific clinical use. [employer] represents that the information provided hereunder was formulated with a reasonable standard of care, and in conformity with professional standards in the field. [employer] makes no representations or warranties, express or implied, including, but not limited to, any implied warranty of merchantability and/or fitness for a particular purpose, with respect to such information and specifically disclaims all such warranties. Users are advised that decisions regarding drug therapy are complex medical decisions requiring the independent, informed decision of an appropriate health rn primary care, and the information is provided for informational purposes only. The entire monograph for a drug should be reviewed for a thorough understanding of the drug's actions, uses and side effects. [employer] does not endorse or recommend the use of any drug.The information is not a substitute for medical care. AHFS?? Patient Medication Information?. ?? Copyright, 2023. [employer]??, [address], [address], [place], [place]. All Rights Reserved. Duplication for commercial use must be authorized by [facility]. Selected Revisions: August 22, 2016. AHFS?? Patient Medication Information?. ?? Copyright, 2024 * Procedures - Giovanni Garg MD - 07/15/2024 9:43 AM EDTAssociated Order(s): Thoracentesis Post-Procedure Diagnose(s): Pleural effusion Thoracentesis Performed by: Giovanni Garg MD Authorized by: Marquita Arndt MD Consent: Consent obtained: Written Consent given by: Patient Risks, benefits, and alternatives were discussed: yes Risks discussed: Bleeding, infection, pain, pneumothorax and incomplete drainage Alternatives discussed: No treatment, delayed treatment and observation [place] protocol: Procedure explained and questions answered to patient or proxy's satisfaction: yes Relevant documents present and verified: yes Test results available: yes Imaging studies available: yes Patient identity confirmed: Verbally with patient and arm band Attending Supervision?: no Sedation: Sedation type: None Anesthesia: Anesthesia method: Local infiltration Local anesthetic: Lidocaine 1% w/o epi Procedure details: Preparation: Patient was prepped and draped in usual sterile fashion Percutaneous Approach: yes Patient position: Sitting Location: R midaxillary line Intercostal space: 6th Puncture method: Bipg-set-aiyozs catheter Ultrasound guidance: yes Indwelling catheter: Removed following drainage Catheter size: 8 Fr Number of attempts: 1 Drainage characteristics: Serosanguinous Post-procedure details: Chest x-ray performed: no (ordered and pending) Procedure completion: Tolerated well, no immediate complications Comments: 900cc bronze colored fluid removed and sent for lab studies. CXR pending. Giovanni Garg CT Surgery R3 Cosigned by Kvng Car MD at 07/15/2024 10:41 AM EDT * Consults - Keisha Lopez, RN - 07/15/2024 3:30 AM EDT VAT consulted for lab draw. Ordered labs were collected with ultrasound guidance from LFA X 1 attempt. Lab tubes were properly labeled, collected in epic and sent to lab. * Care Plan - Zee Peter - 07/14/2024 10:24 PM EDT Problem: Adult Inpatient Plan of Care Goal: Plan of Care Review 07/14/20242223 by Zee Peter Outcome: Ongoing, Progressing 07/14/20242223 by Zee Peter Outcome: Ongoing, Progressing Goal: Patient-Specific Goal (Individualized) 07/14/20242223 by Zee Peter Outcome: Ongoing, Progressing 07/14/20242223 by Zee Peter Outcome: Ongoing, Progressing Goal: Absence of Hospital-Acquired Illness or Injury 07/14/20242223 by Zee Peter Outcome: Ongoing, Progressing 07/14/20242223 by Zee Peter Outcome: Ongoing, Progressing Goal: Optimal Comfort and Wellbeing 07/14/20242223 by Zee Peter Outcome: Ongoing, Progressing 07/14/20242223 by Zee Peter Outcome: Ongoing, Progressing Goal: Readiness for Transition of Care 07/14/20242223 by Zee Peter Outcome: Ongoing, Progressing 07/14/20242223 by Zee Peter Outcome: Ongoing, Progressing Problem: Infection Goal: Absence of Infection Signs and Symptoms 07/14/20242223 by Zee Peter Outcome: Ongoing, Progressing 07/14/20242223 by Zee Peter Outcome: Ongoing, Progressing Problem: Fall Injury Risk Goal: Absence of Fall and Fall-Related Injury 07/14/20242223 by Zee Peter Outcome: Ongoing, Progressing 07/14/20242223 by Zee Peter Outcome: Ongoing, Progressing Problem: Pain Acute Goal: Optimal Pain Control and Function Outcome: Ongoing, Progressing * Care Plan - Todd Jacobs, RN - 07/14/2024 10:01 AM EDT Problem: Adult Inpatient Plan of Care Goal: Plan of Care Review Outcome: Ongoing, Progressing Flowsheets (Taken 07/14/2024 1000) Progress: improving Plan of Care Reviewed With: patient Goal: Patient-Specific Goal (Individualized) Outcome: Ongoing, Progressing Goal: Absence of Hospital-Acquired Illness or Injury Outcome: Ongoing, Progressing Goal: Optimal Comfort and Wellbeing Outcome: Ongoing, Progressing Goal: Readiness for Transition of Care Outcome: Ongoing, Progressing Problem: Infection Goal: Absence of Infection Signs and Symptoms Outcome: Ongoing, Progressing Problem: Fall Injury Risk Goal: Absence of Fall and Fall-Related Injury Outcome: Ongoing, Progressing Problem: Pain Acute Goal: Optimal Pain Control and Function Outcome: Ongoing, Progressing * Progress Notes - Tutu Beltran MD - 07/14/2024 7:11 AM EDT Images from the original note were not included. [facility] Medicine Progress Note Subjective Summary Michelle Felipe is a 74 yo F with a PMH of SLE, DM, CAD s/p CABG (1999), HfpEF, Afib with LV thrombuson warfarin, and known persistent R pleural effusion who presented to ED from pulm clinic for evaluation of cardiac vs pulmonary vs rheumatologic cause of acute on chronic hypoxemic respiratory failure. Subjective Ms. Felipe is feeling well this morning. No dyspnea or chest pressure with limited exertion, walking to restroom, etc. She reports she has been urinating more frequently and increased volume. Denies any pain. Objective Objective Last Recorded Vitals Blood pressure (!) 155/69, pulse 63, temperature 36.5 ??C (97.7 ??F), temperature source Oral, resp. rate 16, weight 63.5 kg (139 lb 15.9 oz), SpO2 92%. Physical Exam Constitutional: General: She is not in acute distress. Appearance: She is not ill-appearing. HENT: Head: Normocephalic and atraumatic. Nose: Comments: Nasal cannula in place Eyes: Extraocular Movements: Extraocular movements intact. Cardiovascular: Rate and Rhythm: Normal rate and regular rhythm. Heart sounds: No murmur heard. No friction rub. Pulmonary: Effort: Pulmonary effort is normal. No respiratory distress. Comments: Lung sounds diminished RLL Abdominal: Palpations: Abdomen is soft. Tenderness: There is no abdominal tenderness. Musculoskeletal: General: Normal range of motion. Right lower leg: No edema. Left lower leg: No edema. Neurological: General: No focal deficit present. Mental Status: She is alert and oriented to person, place, and time. Gait: Gait normal. Data Labs in last 18 hours CBC WBC 6.94 Hb 10.4 (L) Plt 379 (H) Hct 32.6 (L) ANC 4.98 INR 2.7 (H), PTT ??, Anti-Xa ?? BMP Na 134 (L) Cl 93 (L) BUN 16 Glu 175 (H) K 3.7 Co2 28 Cr 0.94 Ca 9.0 iCa ?? Mg 1.6 (L), Phos 3.4 Lactate ?? LFT AST ?? AlkPhos ?? T Prot ?? ALK ?? Bili ?? Alb ?? D.Bili ?? Imaging ECG (07/12/24) CXR (07/12/24) FINDINGS: Stable support hardware. Stable mediastinal contours and enlarged cardiac silhouette. Unchanged small bilateral pleural effusions, right greater than left, with associated compressive atelectasis. Nonew consolidation. No pneumothorax. Mild degenerative changes of the spine. IMPRESSION: No significant interval change of bilateral pleural effusions.. CTA PE (07/13/24) No pulmonary embolism. Persistent moderate to large right and trace left pleural effusions with complete right lower lobe and partial right middle lobe consolidation/atelectasis. Mosaic attenuation indicative of small airway disease or small vessel disease. Assessment/Plan Assessment & Plan Principal Problem: Acute on chronic hypoxic respiratory failure Michelle Felipe is a 74 y.o. female admitted for acute on chronic hypoxemic respiratory failure likely secondary to worsening chronic pleural effusion. Admitted for transition from warfarin to heparin drip for therapeutic thoracentesis as well as work up for cardiac, pulmonologic, and rheumatologic causes of acute decompensation. 07/14 update: Redosed lasix IV 60 mg. Will monitor urine output. Decreased supplemental O2 to 2L today and will monitor closely. Following PT/INR daily to plan for therapeutic thoracentesis w/ interventional pulmonology. #Acute on chronic hypoxemic respiratory failure #Progressive R exudative pleural effusion #HFpEF - Hx of known R sided pleural effusion initially diagnosed in 2020, 5 thoracenteses since then haveall showed exudative effusion with lymphocytes, had PleurX removed in 12/2022 - 1 week of worsening dyspnea on exertion, effusion initially thought to be due to lupus - Seen in pulmonology clinic and trialed 40 mg lasix daily with no improvement in sx and no change in size of effusion on repeat CXR - Suspect HFpEF exacerbation is primary cause of worsening effusion and dyspnea given no signs of infection, wheezing on exam, minimal CRP elevation and lack of exam findings or history consistent with SLE flare PLAN: - TTE pending - Consult to cardiology, appreciate recs - Repeat diuresis - Spironolactone 25 mg daily - Mag > 2 and K > 4 - Follow up with outpatient cardiology - Holding warfarin; will start heparin gtt when INR < 2.0 - Interventional pulmonology consult for therapeutic thora- Will need INR 1.8 to perform thora. Will hold heparin gtt 2 hours prior to procedure - Continue home inhalers #SLE - Known history of lupus, low concern for flare at this time - C3/C4 and CRP WNL -UA with small blood and protein consistent with prior UAs - Further SLE work up pending including anti-ds DNA, anti-epps ab, total complement. - Continue Cellcept Chronic Medical Conditions: Hypothyroidism: Continue Synthroid DM1: glargine 13 u nightly + 3 units w/ meals + sliding scale HLD: Continue Zetia Depression/Anxiety: Continue Cymbalta and buspar Tutu Beltran, PGY1 Internal Medicine/Pediatrics Cosigned by Marquita Arndt MD at 07/14/2024 8:20 PM EDT Associated attestation - Marquita Arndt MD - 07/14/2024 8:20 PM EDT I saw and evaluated the patient. I discussed the case with the resident/fellow and agree with the findings and plan as documented. Reviewed labs, INR 2.2 today * Consults - Jc Fabian RN - 07/14/2024 2:07 AM EDT Labs obtained with US in the left FA x 1 attempt. Specimens handed to primary RN. * Consults - Giovanni Garg MD - 07/13/2024 4:01 PM EDTAssociated Order(s): Inpatient consult to Pulmonology Inpatient consult to Pulmonology Consult performed by: Giovanni Garg MD Consult ordered by: Rajiv Mann MD Reason for consult: recurrent Right pleural effusion Assessment/Recommendations: -thoracentesis pending INR <1.8 -OK for heparin gtt when subtherapeutic INR; will need to hold for 2 hours prior to thoracentesis -cardiology evaluation for pulmonary hypertension -pulmonology will continue to follow Reason For Consult Recurrent Right Pleural Effusion Requesting Service: Hospital Medicine Requested Date/Time: 07/13/2024 1400 History Of Present Illness Michelle Felipe is a 74 y.o. female with pmhx SLE on MMF c/b pleural effusion (s/p pleuroscopy, pleurodesis, and pleural biopsy 2022), COPD (on 4L NC at home), HFpEF, atrial fibrillation (c/b LV thrombus) s/p PPM and on warfarin, CAD s/p CABG in 1999 and subsequent PCI's who presents to the ED with ongoing dyspnea. Briefly, patient has a history of recurrent pleural effusions dating back to 2020. At that time, it was left sided and ultimately underwent pleuroscopy, pleurodesis, pleural biopsy(final pathology negative for malignancy; chronic inflammation was seen), and pleurX placement in 11/2022 with interval removal of the pleurX 12/2022. The patient remained symptom free from pleural effusions until June 2024 when she presented to the ED with increased dyspnea. Patient underwent thoracentesis in the ED which drained 1L of fluid. Fluid studies were transudative, non-infectious, and lymphocytic predominant. Patient was then set up for pulmonology outpatient follow up. She was seen in pulmonology clinic on 07/08/2024 with follow up CXR showing recurrence of the Right sided pleural effusion. Given the patient was on warfarin and recent echo showing increased right heart pressures, the plan was to attempt a diuretic challenge and have the patient follow up the coming week to see if the diuretics were successful. Unfortunately, the patient failed the diuretic challenge and presented to the ED with no improvement in her dyspnea. CT Chest showed moderate to large Right pleural effusion. Patient was admitted to the hospital medicine service where both cardiology and pulmonology were consulted. Today, patient reports no symptomatic improvement from the thoracentesis in June (despite feeling improvement from fluid removal of her left sided pleural effusions). Patient is open to any recommendations by the pulmonology team. Patient reports her work of breathing is about the same as it was the last couple of days but would like it to improve. Patient specifically denies recent fevers, chills, n/v/d, dysphagia, chest pain, new muscle aches, night sweats, or recent infections. Past Medical History She has a past medical history of 2019-nCoV acute respiratory disease (05/07/2022), Alcohol use, Allergic (1972), Anemia, Anxiety, Arthritis, Asthma, Cellulitis (02/13/2024), Cellulitis of right leg (02/12/2024), CHF (congestive heart failure) ([facility]), Chronic respiratory failure (2019), Clottingdisorder ([facility]), Congenital malformation, COPD (chronic obstructive pulmonary disease) ([facility])(2018), Coronary artery disease, CTS (carpal tunnel syndrome), Dental disease, Depression, Diabetesmellitus type I ([facility]), Disease of thyroid gland, Eczema, Fracture of left proximal fibula (04/09/2021), Heart disease, Hepatitis B (1960), HL (hearing loss), Hypertension, Hyperthyroidism (1960), Hypothyroidism (1960), Infectious viral hepatitis, Myocardial infarction ([facility]), Peripheral neuropathy, Pneumonia (06/01), Post-menopausal bleeding (05/08/2021), 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 Surgical History She has a past surgical history that includes Tonsillectomy (N/A); Cardiac pacemaker placement (N/A); Colonoscopy (N/A); Coronary artery bypass graft (N/A); section, low transverse (N/A); Carpal tunnel release (N/A); Eye surgery (N/A); Adenoidectomy; section, classic (1976, 1979);Fracture surgery; Spine surgery; Cervical biopsy w/ loop electrode excision (2010); Breast biopsy (Right, 2013); Adrenal gland surgery; Thoracentesis; Ankle fracture surgery; and Toe Surgery (Left, 02/07/2024). Family History Family History[1] Social History She reports that she has never smoked. She has been exposed to tobacco smoke. She has never used smokeless tobacco. She reports current alcohol use of about 4.0 standard drinks of alcohol per week. She reports that she does not use drugs. Allergies Morphine, Morphine and codeine, Pravastatin, Azathioprine, Cephalexin, Codeine, Penicillins, Rosuvastatin, Seasonal ic [cholestatin], Statins, Tetracycline, and Tetracyclines & related Medications Current Medications[2] Review of Systems 14 point ROS was obtained and negative except for what is included in the HPI. Physical Exam General: alert and oriented, appropriate HEENT: normocephalic, atraumatic, normal external ears and nose Eyes: no scleral icterus, normal conjunctiva Neck: supple, no trachea deviation Lungs: symmetric chest rise, mildly-labored breathing on 4L NC Heart: Paced rate, well perfused Abdomen: soft NT/ND, Extremities: no peripheral edema Skin: no rash, no cyanosis and warm to touch Psychiatric: oriented to person/place/time and normal mood/affect Last Recorded Vitals Blood pressure 121/54, pulse 60, temperature 36.9 ??C (98.5 ??F), resp. rate 16, weight 63.5 kg (140 lb), SpO2 96%. Relevant Results CT Chest (07/13/2024) COMPARISON: 06/29/2024 FINDINGS: Pulmonary Arteries/Vessels: No pulmonary embolism. The thoracic aorta and coronary arteries are atherosclerotic. Pleural/Pericardial space: No pneumothorax. Moderate to large right effusion and trace left effusion are unchanged. No pericardial effusion. Lymph Nodes: No lymphadenopathy within the chest. Lungs: Unchanged complete right lower lobe and partial right middle lobe consolidation/atelectasis.Small atelectasis in the left lung base is seen. No new focal consolidation. Mosaic attenuation is noted. Mediastinum: Stable mild cardiomegaly. Severe mitral annular calcification. Chest wall: No chest wall hematoma or contusion. Bones: No acute fracture within the chest. Unchanged T12 compression deformity. Diffuse osteopenia throughout the spine with degenerative change Upper Abdomen: Limited imaging of the upper abdomen is unremarkable. IMPRESSION: No pulmonary embolism. Persistent moderate to large right and trace left pleural effusions with complete right lower lobe and partial right middle lobe consolidation/atelectasis. Mosaic attenuation indicative of small airway disease or small vessel disease. Assessment/Plan Principal Problem: Acute on chronic hypoxic respiratory failure Michelle Felipe is a 74 y.o. female with pmhx SLE on MMF c/b pleural effusion (s/p pleuroscopy, pleurodesis, and pleural biopsy 2022), COPD (on 4L NC at home), HFpEF, atrial fibrillation (c/b LV thrombus) s/p PPM and on warfarin, CAD s/p CABG in 1999 and subsequent PCI's who presents to the ED with ongoing dyspnea found to have a large Right sided pleural effusion. It is unclear at this time whether the etiology is related to the heart or her lupus, however the absence of symptom resolution with thoracentesis points more to cardiac in etiology. We will plan on performing a thoracentesis in the coming days once the INR drops to 1.8 or lower. It is ok with the pulmonology team to bridge with heparin once the patient gets subtherapeutic (will need to hold the drip for 2 hours prior to thoracentesis). Additionally, agree with cardiology evaluation. Would recommend possible pulmonary hypertension workup with a right heart catheterization if the cardiology team deems appropriate. -OK for heparin gtt when subtherapeutic INR; will need to hold for 2 hours prior to thoracentesis -cardiology evaluation for pulmonary hypertension -pulmonology will continue to follow Patient was staffed w/ Attending Dr. Bojorquez. Giovanni Garg CT Surgery R3 [1] Family History Problem Relation Name Age of Onset Conversions - Other Mother gracy otf [place] Goiter (Diffuse Nontoxic) Heart disease Mother gracy otf [place] Hypertension Mother gracy otf [place] Stroke Mother gracy otf [place] COPD Mother gracy otf [place] Alpha-1 antitrypsin deficiency Mother gracy otf [place] Arthritis Father Doron Antunez Hypercholesterolemia Father Doron Antunez Obesity Father Doron Antunez COPD Father Doron Antunez Alcohol abuse Father Doron Antunez Diabetes Sibling Cancer Other Doron Antunez Conversions - Other Other Goiter (Diffuse Nontoxic) Heart disease Other Gracy Marry Neville [2] Current Facility-Administered Medications Medication Dose Route Frequency Provider Last Rate Last Admin acetaminophen (Tylenol) tablet 1,000 mg 1,000 mg Oral q6h PRN Tutu Beltran MD brimonidine (AlphaGAN P) 0.2 % ophthalmic solution 1 drop 1 drop Both Eyes Daily Tutu Beltran MD 1 drop at 07/12/242052 busPIRone (Buspar) tablet 10 mg 10 mg Oral BID Tutu Beltran MD 10 mg at 07/13/24 08 glucose (Glutose) 40 % oral gel 15 grams of glucose 15 grams of glucose Sublingual q15 min PRN Tutu Beltran MD Or dextrose 50 % solution 12.5 g 12.5 g Intravenous q15 min PRN Tutu Beltran MD Or glucagon (human recombinant) injection 1 mg 1 mg Intramuscular q15 min PRN Tutu Beltran MD DULoxetine (Cymbalta) DR capsule 80 mg 80 mg Oral q AM Tutu Beltran MD 80 mg at 07/13/24537 ezetimibe (Zetia) tablet 10 mg 10 mg Oral Nightly Tutu Beltran MD 10 mg at 07/12/242138 gabapentin (Neurontin) capsule 300 mg 300 mg Oral q AM Boby Caputo MD 300 mg at 07/13/24537 gabapentin (Neurontin) capsule 600 mg 600 mg Oral Nightly Boby Caputo MD insulin glargine-yfgn 100 UNIT/ML injection 13 Units 13 Units Subcutaneous Nightly Tutu Beltran MD 13 Units at 07/12/242057 insulin lispro (Admelog) 100 units/mL injection - Correction - Standard Dose 0-5 Units SubcutaneousTID with meals Tutu Beltran MD 1 Units at 07/13/24 123 insulin lispro (Admelog) injection - Correction - Nighttime Dose 0-3 Units Subcutaneous Twice at night Tutu Beltran MD 3 Units at 07/12/242055 Insulin Lispro (Admelog, HumaLOG) 100 UNIT/ML injection 3 Units 3 Units Subcutaneous TID with mealsTutu Beltran MD 3 Units at 07/13/24 123 levothyroxine (Synthroid, Levoxyl) tablet 125 mcg 125 mcg Oral Daily before breakfast Holly Beltran MD 125 mcg at 07/13/24 0805 Tiotropium Roosevelt Monohydrate (Spiriva Respimat) 2.5 MCG/ACT inhaler 2 puff 2 puff Inhalation Daily Tutu Beltran MD 2 puff at 07/13/24 0808 And mometasone-formoterol (Dulera 100) 100-5 MCG/ACT inhaler 2 puff 2 puff Inhalation BID Holly Beltran MD 2 puff at 07/13/24 0806 mycophenolate (Cellcept) capsule 1,500 mg 1,500 mg Oral BID Tutu Beltran MD 1,500 mg at 07/13/24 0805 potassium chloride CR (Klor-Con) ER tablet 40 mEq 40 mEq Oral Once Tutu Beltran MD sodium chloride 0.9 % flush 10 mL 10 mL Intravenous q12h Tutu Beltran MD 10 mL at 07/13/24 1537 And sodium chloride 0.9 % flush 10 mL 10 mL Intravenous PRN Tutu Beltran MD spironolactone (Aldactone) tablet 12.5 mg 12.5 mg Oral Daily Tutu Beltran MD 12.5 mg at 07/13/24 1537 Current Outpatient Medications Medication Sig Dispense Refill acetaminophen (Tylenol) 500 MG tablet Take 2 tablets by mouth every 6 hours as needed. amLODIPine (Norvasc) 5 MG tablet Take 1 tablet by mouth every morning. aspirin 81 MG EC tablet Take 1 tablet by mouth every evening. brimonidine 0.2 % OP ophthalmic solution Administer 1 drop into both eyes daily. 10 mL 0 busPIRone (Buspar) 10 MG tablet Take 1 tablet by mouth 2 times a day. Calcium Carb-Cholecalciferol 600-200 MG-UNIT [...] each day in themorning. Taking 80mg total (Patient taking differently: Take 1 capsule by mouth every morning. Takein addition to one 60mg capsule for a total of 80mg daily.) 90 capsule 3 DULoxetine (Cymbalta) [address] capsule Take 1 capsule by mouth every morning. Do not crush or chew. Take in addition to one 20mg capsule for a total of 80mg daily. ezetimibe (Zetia) 10 MG tablet Take 1 tablet by mouth nightly. Qkeictgxhjn-Unajyvcaw-Nxkbsc (Trelegy Ellipta) 200-62.5-25 MCG/ACT aerosol powder Inhale 1 puff 1 (one) time each day in the morning. 180 each 3 folic acid (Folvite) 1 MG tablet Taking 1 tablet five days of the week 180 tablet 0 gabapentin (Neurontin) 300 MG capsule [...] Max tdd 30 units 15 mL 2 latanoprost (Xalatan) 0.005 % ophthalmic solution Administer 1 drop into both eyes nightly. levothyroxine (Synthroid, Levoxyl) 125 MCG tablet Take 1 tablet (125 mcg) by mouth 1 (one) time each day before breakfast. 90 tablet 3 metoprolol succinate XL (Toprol-XL) 25 MG 24 hr tablet Take 1 tablet by mouth every morning. mycophenolate (CellCept) 500 MG tablet Take 3 tablets by mouth 2 times a day. 180 tablet 0 nitroglycerin (Nitrostat) 0.[address] 1 tablet under the tongue every 5 minutes as needed for chest pain. Pitavastatin Calcium (Livalo) 4 MG tablet Take 1 tablet by mouth 1 (one) time each day. (Patient taking differently: Take 1 tablet by mouth every evening.) 90 tablet 3 Probiotic Product (acidophilus probiotic blend) capsule Take 1 capsule by mouth every morning. warfarin (Coumadin) 5 MG tablet Take 7.5mg on Mondays (1.5 tablets) and 5mg the rest of the week and follow up with your warfarin pharmacist. diclofenac (Voltaren) 1 % topical gel Place 1-2 g on the skin 2 (two) times a day. Apply as directed to Lower Back (Patient not taking: Reported on 07/08/2024) 100 g 3 Insulin Pen Needle (Pen Henderson) 30G X 5 MM misc use 4 per day oxygen (O2) gas Inhale 2 L nightly. via nasal canula Cosigned by Edward Bojorquez MD at 07/15/2024 2:43 PM EDT Associated attestation - Edward Bojorquez MD - 07/15/2024 2:43 PM EDT I saw and evaluated the patient with the resident/fellow. I discussed the case with the resident/fellow and agree with the findings and plan as documented. * Hospital Course - Marquita Arndt MD - 07/13/2024 2:30 PM EDT Michelle Felipe is a 74 y.o. female with a hx of HFpEF, SLE, CAD s/p post CABG, LV thrombus on warfarin and chronic pleural effusion who presents with acute on chronic hypoxemic respiratory failurelikely secondary to worsening chronic pleural effusion. Admitted for transition from warfarin to heparin drip for therapeutic thoracentesis as well as work up for HFpEF exacerbation vs SLE flare as cause of decompensation. #Acute on Chronic Hypoxemic Respiratory Failure #Progressive R Exudative Pleural Effusion/HFpEF - Presented with 1 week of worsening dyspnea on exertion. Increased home O2 requirement - Likely due to worsening chronic R-sided pleural effusion - Chronic lymphocytic-predominant effusion since 2020; no response to outpatient Lasix trial with Pot Room Supervisor -Hx labs, physical exam not suggestive of acute lupus flare. -Diuresed w/ 60 mg IV lasix for 3 days with symptomatic improvement -Cardiology consulted -Started spironolactone 25 mg daily for HFpEF medical optimization. Patient not a candidate for Jiardance due to T1DM -Held warfarin for therapeutic thoracentesis with interventional pulmonogy when INR at subtherapeutic level. -Thoracentesis performed 07/15, 900 mL of bronze fluid drained -Weaned supplemental O2 back to baseline of 2L -Echo obtained on day of discharge; largely stable from prior Plan: -Lasix 40 mg daily -Continue spironolactone 25 mg daily -TTE ordered to be completed outpatient -Cardiology f/u scheduled -Follow up with pulmonology -Pleural fluid studies pending - Home inhalers continued; oxygen needs are stable -Restart warfarin on discharge (for A fib); bridging not indicated. Of note, patient has prior diagnosis of an LV apical thrombus on echo from 05/2024; cardiology suspects that this may be trabeculations and not a thrombus #SLE - No clinical or lab evidence of active flare - C3/C4, CRP normal; UA similar to prior results Plan: -Rheumatology follow up scheduled -Continue Cellcept and hydroxychloroquine Chronic Medical Conditions: Hypothyroidism: Continue levothyroxine DM: Continue glargine 13 u nightly + 3 units w/ meals + sliding scale HLD: Continue ezetimibe Depression/Anxiety: Continue Cymbalta and buspar * Progress Notes - Tutu Beltran MD - 07/13/2024 1:50 PM EDT Images from the original note were not included. Hospital Medicine Progress Note Subjective Summary Michelle Felipe is a 74 yo F with a PMH of SLE, DM, CAD s/p CABG (1999), HfpEF, Afib with LV thrombuson warfarin, and known persistent R pleural effusion who presented to ED from pulm clinic for evaluation of cardiac vs pulmonary vs rheumatologic cause of acute on chronic hypoxemic respiratory failure. Subjective NAEO. Pt says she feels the same today as she did on presentation yesterday. She also reports some heartburn which she attributes to taking her medications on an empty stomach this morning. She continues to endorse shortness of breath with minimal exertion, but thinks her swelling has improved. Denies new/worsening chest pain, difficulty breathing, palpitations, or rashes. Objective Objective Last Recorded Vitals Blood pressure 118/67, pulse 60, temperature 36.7 ??C (98.1 ??F), resp. rate 16, weight 63.5 kg (140 lb), SpO2 95%. Physical Exam Constitutional: General: She is not in acute distress. Appearance: She is not ill-appearing. HENT: Head: Normocephalic and atraumatic. Nose: Comments: Nasal cannula in place Eyes: Extraocular Movements: Extraocular movements intact. Cardiovascular: Rate and Rhythm: Normal rate and regular rhythm. Heart sounds: No murmur heard. No friction rub. Pulmonary: Effort: Pulmonary effort is normal. No respiratory distress. Comments: Lung sounds diminished RLL Abdominal: Palpations: Abdomen is soft. Tenderness: There is no abdominal tenderness. Musculoskeletal: General: Normal range of motion. Right lower leg: No edema. Left lower leg: No edema. Skin: Capillary Refill: Capillary refill takes less than 2 seconds. Neurological: General: No focal deficit present. Mental Status: She is alert and oriented to person, place, and time. Data Labs in last 18 hours CBC WBC 5.75 Hb 10.8 (L) Plt 370 (H) Hct 32.9 (L) ANC 4.02 INR 2.6 (H), PTT ??, Anti-Xa ?? BMP Na 136 Cl 93 (L) BUN 16 Glu 229 (H) K 3.1 (L) Co2 33 (H) Cr 0.87 Ca 8.9 iCa ?? Mg ??, Phos ?? Lactate ?? LFT AST 26 AlkPhos 89 T Prot 6.9 ALK 15 Bili 0.3 Alb ?? D.Bili ?? Imaging ECG (07/12/24) CXR (07/12/24) FINDINGS: Stable support hardware. Stable mediastinal contours and enlarged cardiac silhouette. Unchanged small bilateral pleural effusions, right greater than left, with associated compressive atelectasis. Nonew consolidation. No pneumothorax. Mild degenerative changes of the spine. IMPRESSION: No significant interval change of bilateral pleural effusions.. CTA PE (07/13/24) No pulmonary embolism. Persistent moderate to large right and trace left pleural effusions with complete right lower lobe and partial right middle lobe consolidation/atelectasis. Mosaic attenuation indicative of small airway disease or small vessel disease. Assessment/Plan Assessment & Plan Principal Problem: Acute on chronic hypoxic respiratory failure Michelle Felipe is a 74 y.o. female admitted for acute on chronic hypoxemic respiratory failure likely secondary to worsening chronic pleural effusion. Admitted for transition from warfarin to heparin drip for therapeutic thoracentesis as well as work up for cardiac, pulmonologic, and rheumatologic causes of acute decompensation. #Acute on chronic hypoxemic respiratory failure #Progressive R exudative pleural effusion #HFpEF - Hx of known R sided pleural effusion initially diagnosed in 2020, 5 thoracenteses since then haveall showed exudative effusion with lymphocytes, had PleurX removed in 12/2022 - 1 week of worsening dyspnea on exertion, effusion initially thought to be due to lupus - Seen in pulmonology clinic and trialed 40 mg lasix daily with no improvement in sx and no change in size of effusion on repeat CXR - Suspect HFpEF exacerbation is primary cause of worsening effusion and dyspnea given no signs of infection, wheezing on exam, minimal CRP elevation and lack of exam findings or history consistent with SLE flare - INR 2.6 today PLAN: - TTE pending - Consult to cardiology, appreciate recs - Repeat diuresis - Spironolactone 25 mg daily - Mag > 2 and K > 4 - Follow up with outpatient cardiology - Lasix 60 mg IV, reassess volume status tomorrow - Interventional pulmonology consult for therapeutic thora - Holding warfarin; will start heparin gtt when INR < 2.0 - Continue home inhalers - NPO at midnight in case of cards/pulm intervention tomorrow #SLE - Known history of lupus, low concern for flare at this time - C3/C4 and CRP WNL -UA with small blood and protein consistent with prior Uas - Further SLE work up pending including anti-ds DNA, anti-epps ab - Continue Cellcept Chronic Medical Conditions: Hypothyroidism: Continue Synthroid DM: glargine 13 u nightly + 3 units w/ meals + sliding scale HLD: Continue Zetia Depression/Anxiety: Continue Cymbalta and buspar Sabrina Love, MS3 I saw and evaluated the patient with the medical student. I discussed the case with the medical student and agree with the findings and plan as documented. I personally performed the Exam and MedicalDecision Making. Tutu Beltran MD Cosigned by Marquita Arndt MD at 07/13/2024 9:32 PM EDT Associated attestation - Marquita Arndt MD - 07/13/2024 9:32 PM EDT I saw and evaluated the patient. I discussed the case with the medical student and resident/fellow and agree with the findings and plan as documented. I personally participated in the management of the patient. * Consults - Bimal Ortiz MD - 07/13/2024 7:26 AM EDTAssociated Order(s): IP CONSULT TO CARDIOLOGY Images from the original note were not included. Cardiology New Consult Note Consult Reason: HFpEF exacerbation Subjective Pertinent History Coronary artery disease /CABG HFpEF with mild mitral regurgitation and mild mitral stenosis Left ventricular thrombus (on warfarin) Paroxysmal afib Complete heart block ([employer]/Blank dual-chamber pacemaker) Lupus Chronic hypoxic respiratory failure (3-4 L baseline) Type I diabetes History of present illness: Michelle Felipe is a 74 y.o. female that presented for worsening dyspnea in spite of escalating outpatient oral diuretic regimen with development of recurrent pleural effusion, with intent to workup for lupus flare. Cardiology is being consulted given ongoing chest pressure with known coronary disease as well as mitral valve disease contributing to her decompensation. She describes worsening shortness of breath over the past few weeks that was unresponsive to increased doses of diuretics. She has a stitcher around at [facility] and she says that he has discussed starting an antiarryhtmic medication (?Tikosyn). Family and Social History: Reviewed and non-significant unless otherwise stated in HPI. Objective and Exam Visit Vitals BP (!) 146/72 Pulse 66 Temp 36.7 ??C (98 ??F) Resp 17 Wt 63.5 kg (140 lb) LMP (LMP Unknown) SpO2 94% BMI 24.03 kg/m?? OB Status Postmenopausal Smoking Status Never BSA 1.69 m?? General: Awake, alert, NAD. Cardiac: Regular rate, regular rhythm. Pulmonary: No wheezes, no increased work of breathing. +3L NC O2 Extremity: Warm, no significant LE edema. Other: ECG / Telemetry Ventricular paced at 70 BPM TTE (05/16/2024) Left Ventricle: The left ventricle is normal [...] Atrium: The left atrial size is severely increased with an indexed volume of >48 mL/m2. Mitral Valve: The leaflets appear thickened. There is severe mitral annular calcification. There ismild mitral regurgitation. There is mild mitral stenosis. The mean mitral valve pressure gradient is estimated to be 5 mmHg at a heart rate of 70 bpm. The mitral valve pressure half time is 128 ms. The mitral valve area by pressure half time is estimated to be 1.7 cm2. Compared to the most recently available prior study, and allowing for differences in image quality and technique, LV apical thrombus appears smaller. CTA PE (06/29/2024) No acute pulmonary emboli identified. Atherosclerotic cardiovascular disease. Mildly worsened cardiomegaly. Septal prominence in the upper and lower lungs, consistent with edema, findings compatible with exacerbation of congestive heart failure. Progression of right pleural effusion, now large, with resultant atelectasis of the right lower lobe, with sparing of the anterobasal segment, and subpleural atelectasis of the abutting right middle lobe. No significant posterior layering pleural effusion on the left, however there does appear to be increased pleural fluid in the posterior aspect of the major fissure. Lab Results Component Value Date BNP 3,235 (H) 07/13/2024 TROPONINT0 28 (H) 07/12/2024 TROPONINT2 24 (H) 07/12/2024 CREATININE 0.87 07/13/2024 K 3.1 (L) 07/13/2024 MG 1.6 (L) 06/29/2024 BNP trend since 07/2023 Assessment and Recommendations HFpEF Mild mitral regurgitation and mild mitral stenosis Complete heart block (Blank dual chamber pacemaker) CAD/CABG Persistent atrial fibrillation She she is having some degree of decompensation from her HFpEF, and there may be an additional cause for her effusion being worse on one side than the other, so we agree with workup for other causes such as inflammatory. Regarding medical optimization, we will recommend the addition of a MRA such as spironolactone. SGLT2 inhibitor was considered, however, given type 1 diabetes, we would not recommend. In order to give her more time in diastole, and help overcome/optimize the mitral stenosis shedoes have, we reduced her pacemaker backup rate from 70 beats per minute to 60 beats per minute. Regarding her persistent atrial fibrillation, we will defer this to the outpatient setting as it sounds like her longitudinal stitcher around was considering potential antiarrhythmic initiation. Recommendations Agree with diuresis Initiate MRA: spironolactone 25 mg daily Mag > 2 and K > 4 (MRA initiation should assist with potassium) Her afib (AMS) base rate has been reprogrammed to 60 BPM Follow up with her outpatient stitcher around We will follow up on the echo, and assuming no significant change, will sign off on her care. Please Secure Chat or page the on-call security infrastructure engineer [phone] with any further questions. Bimal Ortiz MD PGY-5 Fellow, Cardiovascular Diseases Cosigned by Fortino Cano MD at 07/13/2024 3:43 PM EDT Associated attestation - Fortino Cano MD - 07/13/2024 3:43 PM EDT I saw and evaluated the patient with the resident/fellow. I discussed the case with the resident/fellow and agree with the findings and plan as documented. Complex patient presenting with dyspnea that is multifactorial. Possible cardiovascular contributors include mitral valve disease, CAD, Afib, HFpEF, pleural effusions. Echo 05/2024 personally reviewed: there is normal biventricular systolic function. The LA is severely dilated. The mitral valve annulus is severely calcified with mild to moderate stenosis (mean gradient 5 mmHg at 70 bpm; MVA 1.8 cm2) and mild regurgitation (though MR may be underestimated due to acoustic shadowing from MAC). She needs aggressive IV diuresis. Would add MRA to loop diuretics. SGLT2i is unfortunately contraindicated as patient is a type I diabetic. Device interrogation demonstrates afib with V pacing at 70 bpm. We will lower rate to 60 to increase diastolic filling time in setting of MS. I do not think her symptoms represent angina, but it would be reasonable to try antianginal medications if symptoms persist after optimizing volume status. I suspect that the LV apical thrombus called on 05/2024 echo was just trabeculations and not a thrombus. Patient still requires anticoagulation for afib. Warfarin is a reasonable option since mitral stenosis is approaching moderate which would meet criteria for valvular afib where warfarin is the pre ferred anticoagulant. Patient follows closely with [facility] who would like patient to start on dofetilide which is reasonable. I am concerned that sinus rhythm may be hard to maintain with severe LA dilation and mitral stenosis. For now recommend rate control alone while patient is in decompensated state. * H&P - Tutu Beltran MD - 07/12/2024 3:06 PM EDTAssociated Order(s): Consult to Hospital Medicine Images from the original note were not included. Hospital Medicine History & Physical Consult to Hospital Medicine Consult performed by: Tutu Beltran MD Consult ordered by: Yanet Duff MD Reason for consult: acute hypoxic respiratory failure Subjective 07/12/2024 Chief Complaint: Chief Complaint Patient presents with Irregular Heart Beat History Of Present Illness Michelle Felipe is a 74 y.o. female with a PMH of CAD, heart failure with a preserved ejection fraction status post CABG, SLE, left ventricular thrombus on warfarin who presents to the emergency department today for shortness of breath. Patient has chronic hypoxic respiratory failure and known persistent R pleural effusion initially noted in 2020 found to be exudative and lymphocytic on repeat thoracentesis, last 06/29 in the ED withthe same findings.Patient reports her worsening shortness of breath began last week. She does not have shortness of breath with rest but noticed it much faster with minimal exertion. She was requiring increased supplemental O2 from baseline of 3 up to 4L.She has not tried to lie flat. Saw pulmonology on 07/08. Obtained chest XR which showed worsened R pleural effusion. They were unable to repeat thoracentesis due to ongoing warfarin therapy. They sent her home with lasix 40 mg PO daily and repeated CXR on 07/12. CXR today was unchanged with slight increase in fluid along fissure. They recommendedpresenting to ED for hospital admission for expedited cardiology work-up, transition to heparin gttfor therapeutic thoracentesis, and evaluation for SLE flare. Today, patient reports she has had no improvement in exertional dyspnea since beginning lasix. Did have some LE edema which has improved. She denies any dizziness, fever/chills, change in appetite, changes in bowel or bladder movements, abdominal pain, joint pain or swelling. She does note a rash on back and upper extremities that started about a week ago. In the ED, HR and BP were normal. She was saturating in the mid to low 90s on 3 L by nasal cannula and afebrile. ED work up was notable for normal WBC count, INR of 2.8, Na 132, K 3.3, Cl 90, normal creatinine, LDH 357, BNP 4670, CRP 8.7. Additional history was provided by family I reviewed prior records including her most recent ED note, most recent discharge summary, most recent pulmonology specialist note, and previous labs which on my interpretation demonstrated exudativepleural effusion which documented diagnosis, work up and treatment of chronic R pleural effusion. Past Medical History Medical History[1] Surgical History Surgical History[2] Family History Family History[3] Social History Social History[4] Home Medications Current Outpatient Medications Medication Instructions acetaminophen (TYLENOL) 1,000 mg, Every 6 hours PRN amLODIPine (Norvasc) 5 MG tablet brimonidine 0.2 % OP ophthalmic solution 1 drop, Both Eyes, Daily busPIRone (BUSPAR) 10 mg, 2 times daily Calcium Carb-Cholecalciferol 600-200 MG-UNIT tablet 1 tablet, Every morning cetirizine (ZYRTEC) 10 mg, Every evening diclofenac (VOLTAREN) 1-2 g, Transdermal, 2 times daily, Apply as directed to Lower Back DULoxetine (CYMBALTA) 20 mg, Oral, Every morning, Taking 80mg total DULoxetine (CYMBALTA) 60 mg, Daily ezetimibe (ZETIA) 10 mg, Nightly Rbasyhavetz-Hneskzeei-Lglfdl (Trelegy Ellipta) 200-62.5-25 MCG/ACT aerosol powder 1 puff, Inhalation, Every morning folic acid (Folvite) 1 MG tablet Taking 1 tablet five days of the week furosemide (LASIX) 40 mg, Oral, Daily gabapentin (Neurontin) 300 MG capsule Take 1 capsule during the day and 3 capsules at night. hydroxychloroquine (PLAQUENIL) 200 mg, Oral, Daily insulin lispro (HumaLOG KWIKPEN) 100 UNIT/ML injection pen Inject 3-4 units before breakfast and lunch, 2-3 units before dinner and 1:75>160 mg/dl. Max tdd 30 units Insulin Pen Needle (Pen Henderson) 30G X 5 MM [facility] use 4 per day latanoprost (Xalatan) 0.005 % ophthalmic solution 1 drop, Nightly levothyroxine (SYNTHROID, LEVOXYL) 125 mcg, Oral, Daily before breakfast losartan (COZAAR) 50 mg, Oral, Daily methocarbamol (ROBAXIN) 500 mg, Oral, 3 times daily metoprolol succinate XL (TOPROL-XL) 25 mg, Daily mycophenolate (CELLCEPT) 1,500 mg, Oral, 2 times daily nitroglycerin (NITROSTAT) 0.4 mg, Every 5 min PRN oxygen (O2) gas 2 L, Nightly Pitavastatin Calcium (Livalo) 4 MG tablet 1 tablet, Oral, Daily tiZANidine (ZANAFLEX) 2 mg, Every 8 hours PRN Toujeo SoloStar 13 Units, Subcutaneous, Every morning warfarin (Coumadin) 5 MG tablet Take 7.5mg on Mondays (1.5 tablets) and 5mg the rest of the week and follow up with your warfarin pharmacist. Objective Blood pressure 124/58, pulse 69, temperature 36.5 ??C (97.7 ??F), temperature source Oral, resp. rate 18, weight 63.5 kg (140 lb), SpO2 95%. Physical Exam Constitutional: General: She is not in acute distress. Appearance: Normal appearance. HENT: Head: Normocephalic and atraumatic. Nose: Nose normal. Eyes: Conjunctiva/sclera: Conjunctivae normal. Cardiovascular: Rate and Rhythm: Normal rate and regular rhythm. Pulses: Normal pulses. Heart sounds: No murmur heard. Pulmonary: Effort: Pulmonary effort is normal. No respiratory distress. Breath sounds: No wheezing or rales. Comments: Breathing comfortably w/ nasal cannula in place. Diminished breath sounds in R lung choi Abdominal: General: Abdomen is flat. There is no distension. Palpations: Abdomen is soft. Tenderness: There is no abdominal tenderness. Musculoskeletal: General: Normal range of motion. Cervical back: Normal range of motion. Right lower leg: Edema present. Left lower leg: No edema. Skin: General: Skin is warm and dry. Findings: Rash present. Comments: Scattered papules present on back and upper extremities with central scarring Neurological: General: No focal deficit present. Mental Status: She is alert and oriented to person, place, and time. Psychiatric: Mood and Affect: Mood normal. Behavior: Behavior normal. Data Labs personally reviewed CBC WBC 6.65 Hb 11.5 Plt 414 (H) Hct 35.5 ANC 4.94 INR ??, PTT ??, Anti-Xa ?? BMP Na 132 (L) Cl 90 (L) BUN 16 Glu 228 (H) K 3.3 (L) Co2 27 Cr 0.92 Ca 8.8 (L) iCa ?? Mg ??, Phos ?? Lactate ?? LFT AST ?? AlkPhos ?? T Prot ?? ALK ?? Bili ?? Alb ?? D.Bili ?? Imaging CXR 07/12/2024: Stable support hardware. Stable mediastinal contours and enlarged cardiac silhouette. Unchanged small bilateral pleural effusions, right greater than left, with associated compressive atelectasis. Nonew consolidation. No pneumothorax. Mild degenerative changes of the spine. Assessment/Plan Assessment/ Plan Active Problems: There are no active Hospital Problems. Michelle Felipe is a 74 y.o. female with PMH as per above who presents with acute on chronic hypoxemic respiratory failure likely secondary to worsening chronic pleural effusion. Admitted for transition from warfarin to heparin drip for therapeutic paracentesis as well as work up for cardiac, pulmonologic, and rheumatologic causes of acute decompensation. This condition poses an acute threat tolife/bodily function. Acute on chronic hypoxemic respiratory failure Progressive R exudative pleural effusion SLE HFpEF -R sided pleural effusion initially diagnosed in 2020. Has had 5 thoracenteses since then which have all showed exudative effusion with lymphocytes. -Effusion initially thought to be due to lupus -Has had PleurX removed in 12/2022 -1 week of worsening dyspnea on exertion -Seen in pulmonology clinic and trialed 40 mg lasix daily with no improvement in sx and no change in size of effusion on repeat CXR -Suspect HFpEF exacerbation is primary cause of worsening effusion and dyspnea given no signs of infection, wheezing on exam, minimal CRP elevation and lack of exam findings or history consistent with SLE flare -Cardiology consulted in ED -INR 2.8 today -Discussed transition from warfarin to heparin drip with pharmacy Plan: -TTE -Follow up cardiology recs -lasix 60 mg IV -Interventional pulmonology consult in am -Holding warfarin; will start heparin gtt when INR < 2.0 -SLE work up including anti-ds DNA, anti-epps ab -Continue Cellcept -Continue home inhalers -NPO at midnight in case of cards/pulm intervention tomorrow -f/u UA to assess for proteinuria Chronic Medical Conditions: Hypothyroidism: Continue Synthroid T1DM: glargine 13 u nightly + 3 units w/ meals + sliding scale HLD: Continue Zetia Depression/Anxiety: Continue Cymbalta and buspar Care today included: HIGHRISK: Discussion of management/test with another provider: pulmonology or High risk: Drug therapy requiring intensive monitoring for toxicity: Warfarin Tutu Beltran MD PGY1, Internal Medicine/Pediatrics Electronically Signed by: Tutu Beltran MD - 07/12/2024 - 3:06 PM [1] Past Medical History: Diagnosis Date 2018-nCoV [...] or viral conjunctivitis vs. Scleritis. - Needs [facility] eye exam. - Was ableto get patient in with [facility] ophthalmology right after our clinic appointment [...] unspecified (CMS/HCC) Lupus Varicella Visual impairment [2] Past Surgical History: Procedure Laterality Date ADENOIDECTOMY ADRENAL GLAND SURGERY ANKLE FRACTURE SURGERY BREAST BIOPSY Right 2013 u/s core benign CARDIAC PACEMAKER PLACEMENT N/A Pacemaker Placement from [facility] [place] CARPAL TUNNEL RELEASE N/A Neuroplasty Decompression Median Nerve At Carpal Tunnel from [facility] [place] CERVICAL BIOPSY W/ LOOP ELECTRODE EXCISION 2010 SECTION, CLASSIC 1976, 1979 SECTION, LOW TRANSVERSE N/A Section from [facility] [place] COLONOSCOPY N/A Complete Colonoscopy from [facility] [place] CORONARY ARTERY BYPASS GRAFT N/A CABG from [facility] [place] EYE SURGERY N/A Eye Surgery from [facility] [place] FRACTURE SURGERY SPINE SURGERY THORACENTESIS TOE SURGERY Left 02/07/2024 hematoma removal of upper skin on L big toe TONSILLECTOMY N/A Tonsillectomy from [facility] [place] [3] Family History Problem Relation Name Age of Onset Conversions - Other Mother gracy stamper alfredito kelin Goiter (Diffuse Nontoxic) Heart disease Mother gracy stamper alfredito kelin Hypertension Mother gracy stamper alfredito kelin Stroke Mother gracy stamper alfredito kelin COPD Mother gracy stamper alfredito kelin Alpha-1 antitrypsin deficiency Mother gracy stamper alfredito kelin Arthritis Father Doron Arriaza Alfredito Hypercholesterolemia Father Doron Arriaza Alfredito Obesity Father Doron E Alfredito COPD Father Doron E Alfredito Alcohol abuse Father Doron Arriaza Alfredito Diabetes Sibling Cancer Other Doron E Alfredito Conversions - Other Other Goiter (Diffuse Nontoxic) Heart disease Other Gracy Marry Stamper Cadwell Kelin [4] Social History Tobacco Use Smoking status: Never Passive exposure: Past (2nd hand smoke) Smokeless tobacco: Never Vaping Use Vaping status: Never Used Substance Use Topics Alcohol use: Yes Alcohol/week: 4.0 standard drinks of alcohol Types: 3 Cans of beer, 1 Shots of liquor per week Comment: Nightly Drug use: Never Cosigned by Rajiv Mann MD at 07/17/2024 9:47 AM EDT Associated attestation - Rajiv Mann MD - 07/17/2024 9:47 AM EDT I saw and evaluated the patient with the resident/fellow. I discussed the case with the resident/fellow and agree with the findings and plan as documented. * ED Provider Notes - Scot Leblanc DO - 07/12/2024 12:14 PM EDT Images from the original note were not included. - HPI Chief Complaint Patient presents with Irregular Heart Beat [facility] Note Michelle Felipe is a 74 y.o. female who presents to ED with Irregular Heart Beat. Pt has a pacemaker. Pt reports she was called and advised to come to ED as pt has had irregular rhythm. Additionally pt had chest x-ray this morning due to recent pleural effusion. Notes some shortness of breath andBLE swelling. On lasix. Patient denies fever, chills, cough, chest pain, nausea, vomiting, and diarrhea. History provided by: Patient motor vehicle parts interpreter used: No MAIN ED NOTE//Scot Leblanc DO I assumed full responsibility for this patient after transfer to Main ED from [facility]. I personally performed my own history, ROS, and physical. I agree with the above [facility] documentation with the following additions/exceptions: Patient is a 74-year-old female with a past medical history of CAD, HFpEF s/p CABG, SLE who presents for shortness of breath. Patient reports that she was seen by her embossing clerk and told to come to the emergency department for further workup of her chronic shortness of breath. She also reports that her stitcher around called her and saying that she was in atrial fibrillation. On examination she reports that her shortness of breath has not changed and she is not require an increase in oxygen requirements at home. She denies any current chest pain, dizziness, headaches, vision changes. Patient History Medical History[1] Surgical History[2] Family History[3] Social History[4] Allergies: Allergies[5] Physical Exam ED Triage Vitals Temp Heart Rate Resp BP 07/12/24 1220 07/12/24 1220 07/12/24 1218 07/12/24 1220 36.5 ??C (97.7 ??F) 69 20 124/58 SpO2 Temp Source Heart Rate Source Patient Position 07/12/24 1220 07/12/24 1220 -- -- 95 % Oral BP Location FiO2 (%) -- -- Physical Exam Constitutional: General: She is not in acute distress. HENT: Head: Normocephalic. Comments: No facial swelling Mouth/Throat: Mouth: Mucous membranes are moist. Pharynx: Oropharynx is clear. Cardiovascular: Rate and Rhythm: Normal rate. Pulmonary: Effort: Pulmonary effort is normal. No respiratory distress. Breath sounds: Normal air entry. Comments: Speaking full sentences. Symmetric chest rise Abdominal: General: There is no distension. Musculoskeletal: General: No deformity. Normal range of motion. Cervical back: Normal range of motion. Comments: Atraumatic, moves all extremities spontaneously Neurological: Mental Status: She is alert. Mental status is at baseline. Comments: Awake Psychiatric: Behavior: Behavior normal. [place] Coma Scale Score: 15 ED Course & MDM PIT Date: 07/12/2024 Scribe Attestation: This note was dictated to me, Corazon Preston, acting as a scribe for Dr. Jarvis Sanz. Attending Attestation: The documentation was recorded by Corazon Preston acting as scribe in my presence at the time of the encounter and accurately reflects the service I personally performed. - Assessment: 74 y.o. female presents to ED with complaint of shortness a breath. 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 This complicates the clinical picture because it Comorbidities: may be exacerbating symptoms, increases the amount and complexity of data to be reviewed, and increases therisk for morbidity most recent echocardiogram shows small fixed marrow mass at the apex consistent with a thrombus. LV EF is 60-65%. Right ventricle shows systolic pressure 55 mmg. There is also mitral valve disease Differential Diagnosis: Pneumonia, volume overload, right heart failure, pulmonary hypertension, lupus In order to fully explore the differential diagnosis the following treatments and tests were ordered: All Other Orders Ordered Status Ordering Provider 07/12/24 1607 Vital Signs Every 4 hours Placed in And Linked Group Acknowledged TUTU BELTRAN 07/12/24 1607 Pulse Oximetry Every 4 hours Placed in And Linked Group Acknowledged TUTU BELTRAN 07/12/24 1607 Do Not Give Nicotine Replacement Until discontinued Acknowledged TUTU BELTRAN 07/12/24 1607 Nurse to complete Until discontinued Comments: -Reorient communication -Record location, date, and time on the whiteboard -Ensure working clock on the wall and in view -Ensure lights are on and window shades/drapes open from 0800 to 1999 -Ensure hearing aids present and available by 0800 (if applicable) -Ensure eyeglasses are present and available by 0800 (if applicable) -Ensure dentures are in by 0800 (if applicable) -Ensure lights and TV are off after 2099 -Offer earplugs if noise interfering with sleep (if available) -Offer fluids q2h between 0800 & 2100 -Assess daily by 1200 if cardiac telemetry can be discontinued -Facilitate family visit or phone call daily -Notify primary team of uncontrolled pain if applicable -Participate in maximum level of mobility as directed by PT/OT -Offer warm beverage (milk or decaffeinated tea) at 2100 Acknowledged TUTU BELTRAN 07/12/24 1607 Full code Continuous Acknowledged TUTU BELTRAN 07/12/24 1607 Adult diet Diet texture: Regular Diet effective now Acknowledged TUTU BELTRAN 07/12/24 1607 Reason for no VTE Prophylaxis - hospital admission - mechanical Once Comments: On warfarin Completed TUTU BELTRAN 07/12/24 1607 Mobility Orders Until discontinued Acknowledged TUTU BELTRAN 07/12/24 1607 Notify physician (specify parameters) Until discontinued Acknowledged TUTU BELTRAN 07/12/24 1607 Insert peripheral IV Once Placed in And Linked Group Acknowledged TUTU BELTRAN 07/12/24 1607 Saline lock IV Once Placed in And Linked Group Acknowledged TUTU BELRTAN 07/12/24 1607 Admit to inpatient Once Acknowledged TUTU BELTRAN 07/12/24 1358 Troponin T, High Sensitivity, 2 Hour, Plasma PROCEDURE ONCE Final result YANET DUFF 07/12/24 1450 Consult to Hospital Medicine Once Specialty: Internal Medicine Provider: (Not yet assigned) Acknowledged SCOT LEBLANC 07/12/24 1425 Anti-DNA antibody, double-stranded Once In process YANET DUFF 07/12/24 1425 C-reactive protein STAT Final result YANET DUFF 07/12/24 1419 Protime-INR STAT Final result SCOT LEBLANC 07/12/24 1419 LDH, Lactate dehydrogenase STAT Final result SCOT LEBLANC 07/12/24 1254 BMP STAT Final result YANET DUFF 07/12/24 1254 CBC w/diff STAT Final result YANET DUFF 07/12/24 1254 Troponin now and 120 min STAT Final result YANET DUFF 07/12/24 1254 Insert peripheral IV Once Acknowledged YANET DUFF 07/12/24 1254 BNP STAT Final result YANET DUFF 07/12/24 1225 EKG now - STAT (adult) Once Preliminary result LEAH JARVIS W On initial evaluation patient is sitting up in hospital bed in no apparent acute distress answeringquestions appropriately. She is on 3 L oxygen by nasal cannula which is her baseline amount. She isotherwise hemodynamically stable, normal heart rate, afebrile, saturating well on 3 L. Physical exam shows that she is euvolemic with no pretibial edema. There was no tenderness to her abdomen and there was no distention. Her lungs are clear to auscultation bilaterally although there was some mild diminished lung sounds in the lower lung choi. Troponin level was show no significant delta. CRP is mildly elevated. BNP is similar to previous values. It is elevated. No leukocytosis or anemia. Elec trolyte panel shows mild hypokalemia and hyponatremia. Per my chart review she does have an echo completed back in May which does show left ventricular thrombus as well as elevated right ventricular pressure consistent with pulmonary hypertension. Additionally per chart review pulmonology did refer to the emergency department and to be admitted. They would like interventional pulmonology as well as Cardiology to be consulted while inpatient. They have concern for lupus causing her pleural effusions which are chronic as well as wanting to treat her left ventricular thrombus. I did curbside with Cardiology who stated that a formal inpatient cardiology consult complaint filled tomorrow morning to allow the inpatient team to handle it. Otherwise they recommended to maintain treatment with warfarin in the meantime. Social Determinates of Health Risks (including Economic Stability, Education and level of understanding, Healthcare access and quality and concerning social factors): None identified on this visit Ultimately, this patient was Was admitted (Admission) There were no encounter diagnoses.. Patient believed to require admission for the listed diagnoses. The Internal Medicine service was consulted for admission and was agreeable to admit toAcute Floor (Med/Surg). ED Prescriptions None Disposition Admit Admitting/Attending Physician: RAJIV MANN [[id number]] Provider Care Team: MICHAEL WIGGINS 4 [[id number]] Are they the primary team?: Yes [1] - [1] Past Medical History: Diagnosis Date 2018-nCoV [...] - Was ableto get patient [facility] with [facility] ophthalmology right after our clinic appointment [...] unspecified (CMS/HCC) Lupus Varicella Visual impairment [2] Past Surgical History: Procedure Laterality Date ADENOIDECTOMY ADRENAL GLAND SURGERY ANKLE FRACTURE SURGERY BREAST BIOPSY Right 2013 u/s core benign CARDIAC PACEMAKER PLACEMENT N/A Pacemaker Placement from [employer] [place] CARPAL TUNNEL RELEASE N/A Neuroplasty Decompression Median Nerve At Carpal Tunnel from [employer] [place] CERVICAL BIOPSY W/ LOOP ELECTRODE EXCISION 2010 SECTION, CLASSIC 1977, 1979 SECTION, LOW TRANSVERSE N/A Section from [employer] [place] COLONOSCOPY N/A Complete Colonoscopy from [facility] [employer] [place] CORONARY ARTERY BYPASS GRAFT N/A CABG from [employer] [employer] [place] EYE SURGERY N/A Eye Surgery from [employer] [employer] [place] FRACTURE SURGERY SPINE SURGERY THORACENTESIS TOE SURGERY Left 02/07/2024 hematoma removal of upper skin on L big toe TONSILLECTOMY N/A Tonsillectomy from [employer] [employer] [place] [3] Family History Problem Relation Name Age of Onset Conversions - Other Mother gracy stamper alfredito kelin Goiter (Diffuse Nontoxic) Heart disease Mother gracy stamper alfredito kelin Hypertension Mother gracy stamper alfredito kelin Stroke Mother gracy stamper alfredito kelin COPD Mother gracy stamper alfredito kelin Alpha-1 antitrypsin deficiency Mother gracy stamper alfredito kelin Arthritis Father Doron Antunez Hypercholesterolemia Father Doron Antunez Obesity Father Doron Antunez COPD Father Doron Henriquezer Alcohol abuse Father Doron Antunez Diabetes Sibling Cancer Other Doron E Alfredito Conversions - Other Other Goiter (Diffuse Nontoxic) Heart disease Other Gracy Marry Stamper Alfredito Kelin [4] Tobacco Use Smoking status: Never Passive exposure: Past (2nd hand smoke) Smokeless tobacco: Never Vaping Use Vaping status: Never Used Substance Use Topics Alcohol use: Yes Alcohol/week: 4.0 standard drinks of alcohol Types: 3 Cans of beer, 1 Shots of liquor per week Comment: Nightly Drug use: Never [5] Allergies Allergen Reactions Morphine Hallucinations, Rash and Other - please document in the comment field Morphine And Codeine Rash and Hallucinations Pravastatin Unknown - Patient states they do not know rxn details and Rash Doesn't remember this rxn-from 3 yrs ago Azathioprine Unknown - Patient states they do not know rxn details Cephalexin Rash Codeine Other - please document in the comment field Penicillins Rash and Other - please document in the comment field Rosuvastatin Other - please document in the comment field and Unknown - Patient states they do not know rxn details Leg cramps Seasonal Ic [Cholestatin] Unknown - Patient states they do not know rxn details Statins Other - please document in the comment field myalgia Tetracycline Rash and Other - please document in the comment field Tetracyclines & Related Rash Scot Leblanc DO Resident 07/12/24 175 Cosigned by Yanet Duff MD at 07/14/2024 5:13 PM EDT Associated attestation - Yanet Duff MD - 07/14/2024 5:13 PM EDT I saw and evaluated the patient with the resident/fellow. I discussed the case with the resident/fellow and agree with the findings and plan as documented. * ED Triage Notes - Felicity Guidry RN - 07/12/2024 12:14 PM EDT EP called from [facility], states patient is in afib and to come to ER. Denies pain or palpitations. * Significant Event - Lavern Shoemaker MD - 07/12/2024 11:04 AM EDT Patient failed oral diuretic challenge over the weekend with continued symptoms of dyspnea, desaturation with ambulation on 3L NC. Her CXR is unchanged with slight increase in fluid along fissure. I discussed with her presenting to ED for hospital medicine admission. She will need the following serum studies: INR, CBC, CMP, BNP, LDH, ds-DNA, complement levels, CRP and a TTE. She should be transitioned off warfarin to a heparin gtt in anticipation of possible procedure. Please consult IP and Cardiology for further assistance with recurrent pleural effusion, ongoing chest pressure in s/o known CAD s/p CABG and PCI with known mitral disease. She may require initiation of steroids if thought to be in active SLE flare. She was recently increased to MMF 1500mg bid which will take weeks to take affect. Lavern Shoemaker MD Pulmonary and Critical Care Fellow, PGY5 PICC [phone] documented in this encounter Plan of Treatment Upcoming Encounters Date Type Department Care Team (Late st Contact Info) Description 09/08/2024 11:20 AM EDT Office Visit [facility] Internal Medicine [address] [place] [phone] Alisa Kunz, DO [address] [place] [phone] 10/07/2024 4:00 PM EDT Appointment Cardiac Imaging [address] [place] [address] 10/14/2024 4:00 PM EDT Office Visit [facility] Medicine Specialties [address] [place] [address] Lavern Shoemaker MD [address] [place] [address] 10/27/2024 1:40 PM EDT Office Visit [facility] Endocrinology [address] [place] [phone] Anne-Marie Kolb L, TRIMMING MACHINE OPERATOR [address] [facility] [address] [place] [phone] 11/29/2024 10:20 AM EDT Office Visit [facility] Internal Medicine [address] [place] [phone] Alisa Kunz, DO [address] [place] [phone] 02/02/2025 10:30 AM EST Office Visit [facility] Medicine Specialties [address] [place] [address] Sadiq Osborne, SHNAA [address] [place], [place] [id number] Scheduled Orders Name Type Priority Associated Diagnoses Order Schedule Echo, Adult Transthoracic Complete Echocardiography Routine Acute on chronic heart failure with preserved ejection fraction (CMS/HCC) Expected: 07/15/2024 (Approximate), Expires: 07/15/2026 documented as of this encounter Procedures Procedure Name Priority Date/Time Associated Diagnosis Comments ECHO, ADULT TRANSTHORACIC COMPLETE W/ CONTRAST Routine 07/15/2024 3:36 PM EDT CHOLESTEROL FLUID (SO) Routine 1:03 PM EDT TRIGLYCERIDES, BODY FLUIDS (SO) Routine 07/15/2024 1:03 PM EDT POCT GLUCOSE METER UNSOLICITED RESULTS Routine 07/15/2024 12:43 PM EDT POCT GLUCOSE METER UNSOLICITED RESULTS Routine 07/15/2024 11:56 AM EDT POCT GLUCOSE METER UNSOLICITED RESULTS Routine 07/15/2024 11:35 AM EDT XR CHEST 1 VIEW STAT 07/15/2024 10:54 AM EDT HC THORACENTESIS NEEDLE/CATH PLEURA W/IMAGING Routine 07/15/2024 9:43 AM EDT Pleural effusion ID THORACENTESIS NEEDLE/CATH PLEURA W/IMAGING Routine 07/15/2024 9:43 AM EDT Pleural effusion BODY FLUID CELL COUNT W/ MANUAL DIFFERENTIAL Routine 07/15/2024 9:34 AM EDT BODY FLUID, CYTOSPIN, PATHOLOGIST INTERPRETATION Routine 07/15/2024 9:34 AM EDT TOTAL PROTEIN, PLEURAL FLUID Routine 07/15/2024 9:31 AM EDT FUNGAL CULTURE, STERILE BODY FLUID (NOT CSF) AND JAS Routine 07/15/2024 9:31 AM EDT LACTATE DEHYDROGENASE, PLEURAL FLUID Routine 07/15/2024 9:31 AM EDT BODY FLUID CULTURE AND GRAM STAIN Routine 07/15/2024 9:31 AM EDT GLUCOSE, PLEURAL FLUID Routine 9:31 AM EDT NON-GYNECOLOGIC CYTOLOGY Routine 07/15/2024 9:31 AM EDT POCT GLUCOSE METER UNSOLICITED RESULTS Routine 07/15/2024 7:30 AM EDT POCT GLUCOSE METER UNSOLICITED RESULTS Routine 07/15/2024 4:19 AM EDT PROTHROMBIN TIME(PT) / INR Routine 07/15/2024 3:30 AM EDT CBC WITH AUTO DIFFERENTIAL Routine 07/15/2024 3:30 AM EDT BASIC METABOLIC PANEL, PLASMA Routine 07/15/2024 3:30 AM EDT POCT GLUCOSE METER UNSOLICITED RESULTS Routine 07/14/2024 8:27 PM EDT POCT GLUCOSE METER UNSOLICITED RESULTS Routine 07/14/2024 4:27 PM EDT POCT GLUCOSE METER UNSOLICITED RESULTS Routine 07/14/2024 12:42 PM EDT POCT GLUCOSE METER UNSOLICITED RESULTS Routine 07/14/2024 11:45 AM EDT EXTRA TUBE LAVENDER TOP Routine 07/14/2024 11:17 AM EDT EXTRA TUBE LIGHT GREEN TOP Routine 07/14/2024 11:17 AM EDT EXTRA TUBES Routine 07/14/2024 11:17 AM EDT PROTHROMBIN TIME(PT) / INR Routine 07/14/2024 11:17 AM EDT POCT GLUCOSE METER UNSOLICITED RESULTS Routine 07/14/2024 8:42 AM EDT OXYGEN THERAPY Routine 07/14/2024 8:00 AM EDT CBC WITH AUTO DIFFERENTIAL Routine 07/14/2024 2:08 AM EDT PHOSPHORUS, PLASMA Routine 07/14/2024 2: 08 AM EDT MAGNESIUM, PLASMA Routine 07/14/2024 2:0 8 AM EDT BASIC METABOLIC PANEL, PLASMA Routine 07/14/2024 2:08 AM EDT POCT GLUCOSE METER UNSOLICITED RESULTS Routine 07/13/2024 9:47 PM EDT POCT GLUCOSE METER UNSOLICITED RESULTS Routine 07/13/2024 9:19 PM EDT POCT GLUCOSE METER UNSOLICITED RESULTS Routine 07/13/2024 8:36 PM EDT OXYGEN THERAPY Routine 07/13/2024 8:00 PM EDT POCT GLUCOSE METER UNSOLICITED RESULTS Routine 07/13/2024 4:24 PM EDT PROTHROMBIN TIME(PT) / INR Routine 07/13/2024 3:57 PM EDT POTASSIUM, PLASMA Routine 07/13/2024 3:2 6 PM EDT POCT GLUCOSE METER UNSOLICITED RESULTS Routine 07/13/2024 11:[address] ANGIO PULMONARY EMBOLISM Routine 07/13/2024 10:07 AM EDT OXYGEN THERAPY Routine 07/13/2024 8:00 AM EDT POCT GLUCOSE METER UNSOLICITED RESULTS Routine 07/13/2024 5:52 AM EDT N-TERMINAL PROBNP, PLASMA Routine 07/13/2024 3:09 AM EDT PROTHROMBIN TIME(PT) / INR Routine 07/13/2024 3:09 AM EDT CBC WITH AUTO DIFFERENTIAL Routine 07/13/2024 3:09 AM EDT COMPREHENSIVE METABOLIC PANEL, PLASMA Routine 07/13/2024 3:09 AM EDT POCT GLUCOSE METER UNSOLICITED RESULTS Routine 07/13/2024 1:02 AM EDT POCT GLUCOSE METER UNSOLICITED RESULTS Routine 07/12/2024 10:14 PM EDT POCT GLUCOSE METER UNSOLICITED RESULTS Routine 07/12/2024 8:30 PM EDT OXYGEN THERAPY Routine 07/12/2024 8:00 PM EDT URINALYSIS MICROSCOPIC FOR UA REFLEX Routine 07/12/2024 7:27 PM EDT URINALYSIS WITH REFLEX MICROSCOPIC Routine 07/12/2024 7:27 PM EDT EPPS (ASHLEY) ANTIBODY, IGG (SO) Routine 07/12/2024 4:46 PM EDT COMPLEMENT ACTIVITY TOTAL, (CH50) (SO) Routine 07/12/2024 4:46 PM EDT C3 COMPLEMENT Routine 07/12/2024 4:46 PM EDT C4 COMPLEMENT Routine 07/12/2024 4:46 PM EDT OXYGEN THERAPY Routine 07/12/2024 4:12 PM EDT OXYGEN THERAPY Routine 07/12/2024 4:12 PM EDT OXYGEN THERAPY Routine 07/12/2024 4:12 PM EDT TROPONIN T, HIGH SENSITIVITY, 2 HOUR, PLASMA Timed 07/12/2024 3:24 PM EDT DOUBLE-STRANDED DNA (DSDNA) ANTIBODY, IGG BY IFA (SO) STAT 07/12/2024 3:24 PM EDT PROTHROMBIN TIME(PT) / INR STAT 07/12/2024 3:24 PM EDT TROPONIN T, HIGH SENSITIVITY, 0 HOUR, PLASMA, REFLEX TO 2 HOUR STAT 07/12/2024 1:11 PM EDT N-TERMINAL PROBNP, PLASMA STAT 07/12/2024 1:11 PM EDT CBC WITH AUTO DIFFERENTIAL STAT 07/12/2024 1:11 PM EDT C-REACTIVE PROTEIN, PLASMA STAT Add-on 07/12/2024 1:11 PM EDT LACTATE DEHYDROGENASE, PLASMA STAT Add-on 07/12/2024 1:11 PM EDT BASIC METABOLIC PANEL, PLASMA STAT 07/12/2024 1:11 PM EDT ECG ADULT STAT 07/12/2024 12:30 PM EDT documented in this encounter Results * ECHO, ADULT TRANSTHORACIC COMPLETE W/ CONTRAST (07/15/2024 3:36 PM EDT) Height 162.0 DARI ISCV Weight 62.6 DARI ISCV BSA 1.67 m2 DARI ISCV Ao Root Diam 29 mm DARI ISCV LA dimension 42 mm DARI ISCV TR Vmax 298.5 cm/s DARI ISCV TR Max PG 36 mmHG DARI ISCV PA acc time 120 msec DARI ISCV mean PAP 25 mmHg DARI ISCV PA ID(ACCEL) 25.1 mmHg DARI ISCV PA acc slope 788.0 cm/s2 DARI ISCV MV V2 VTI 44.3 cm DARI ISCV MV MG 4 mmHg DARI ISCV MV V2 max 177.3 cm/s DARI ISCV MV max PG 13 mmHg DARI ISCV LV Lat e' Velocity 12.2 cm/s DARI ISCV LV Sept e' Sumit 5.2 cm/s DARI ISCV Ao V2 VTI 39.8 cm DARI ISCV Ao mean PG 8 mmHg DARI ISCV Ao V2 Vmax 182.9 cm/s DARI ISCV Ao max PG 13 mmHg DARI ISCV Ao V2 mean 131.5 cm/s DARI ISCV RV s' Sumit 11.0 cm/s DARI ISCV TAPSE 16 mm DARI ISCV Anatomical Region Laterality Modality Echocardiography Narrative 07/15/2024 4:21 PM EDT Left Ventricle: The left ventricle is not well visualized, but is grossly normal in size. The LVEF is visually estimated at 55 - 60%. The diastolic function is abnormal. The left ventricular wall motion is normal. Right Ventricle: The right ventricle was not well visualized. Left Atrium: The left atrium is dilated by visual assessment. Aortic Valve: The aortic valve appears to be trileaflet. The left, right and non-coronary cusps are calcified. There is mild to moderate aortic valve regurgitation. Mitral Valve: There is severe mitral annular calcification. There is mild mitral stenosis. The mean mitral valve pressure gradient is estimated to be 4 mmHg at a heart rate of 99 bpm. Pericardium: No pericardial effusion. Compared to the most recently available prior study, and allowing for differences in image quality and technique, there is no significant interval change noted. Left Ventricle The left ventricle is not well visualized, but is grossly normal in size. No left ventricular mass or thrombus is seen. The LVEF is visually estimated at 55 - 60%. The diastolic function is abnormal. The left ventricular wall motion is normal. Right Ventricle The right ventricle was not well visualized. A catheter/lead is present in the right ventricle. Left Atrium The left atrium is dilated by visual assessment. The interatrial septum is intact with no evidence for an atrial septal defect. Right Atrium The right atrium was not well visualized. IVC/SVC Based on the IVC size and respiratory variation, the estimated right atrial pressure is 3mmHg. Mitral Valve There is severe mitral annular calcification. There is mild mitral regurgitation. There is mild mitral stenosis. The mean mitral valve pressure gradient is estimated to be 4 mmHg at a heart rate of 99 bpm. Tricuspid Valve The tricuspid valve is grossly normal in appearance. There is mild tricuspid regurgitation. There is no tricuspid stenosis. Aortic Valve The aortic valve appears to be trileaflet. The left, right and non-coronary cusps are calcified. There is mild to moderate aortic valve regurgitation. The peak gradient is 13 mmHg. The mean gradient is 8 mmHg. Pulmonic Valve The pulmonic valve is normal in appearance. There is trace pulmonic regurgitation. There is no pulmonic stenosis. Pericardium No pericardial effusion. Great Vessels The aortic root is normal in size. The sinus of Valsalva (aortic root) diameter is 29 mm by leading edge to leading edge method. The main pulmonary artery is not well visualized. Extracardiac There is no pleural effusion. Study Details A complete transthoracic echocardiogram using two-dimensional (2D), m-mode, color and spectral flow Doppler imaging was performed. During the study the apical, parasternal and subcostal view was captured. Definity contrast was used during the study. The study was technically difficult. The study was technically difficult due to patient's body habitus. Heart rate was normal. Height: 162.0 cm. Weight: 62.6 kg. BSA: 1.67 m2. The heart rhythm during this exam was most suggestive of a sinus rhythm. Study Recommendation Compared to the most recently available prior study, and allowing for differences in image quality and technique, there is no significant interval change noted. us Deejay Schneider MD CV ECHO PROCEDURES Final Resul t * Cholesterol Fluid Battery (07/15/2024 1:03 PM EDT) CHOLESTEROL, FLUID 31 mg/dL 07/16/2024 11:11 PM EDT [facility] CHOLESTEROL FLUID SOURCE Pleural fluid 07/16/2024 11:11 PM EDT [facility] Pleural Fluid Non-blood Collection / Unknown 07/15/2024 1:03 PM EDT 07/15/2024 1:03 PM EDT Narrative [facility] ([place]) - 07/16/2024 11:11 PM EDT INTERPRETIVE INFORMATION: Cholesterol, Body Fluid For information on body fluid reference ranges and/or interpretive guidance visit [email or web address] This test was developed and its performance characteristics determined by [facility]. It has not been cleared or approved by the [place] Food and Drug Administration. This test was performed in a CLIA certified laboratory and is intended for clinical purposes. Performed By: [facility] [address] [place] [address] Hyperbaric Nurse: Austin Bernal MD, PhD CLIA Number: [id number] Marquita Arndt MD LAB REF LAB BLOOD AND FL UID ORD Final Result Performing Organization Address [facility]/ZIP Co de Phone Number [facility] ([facility]) [address] [place] [address] * Triglycerides, body fluid (07/15/2024 1:03 PM EDT) Triglyceride, Fluid 39 mg/dL 07/16/2024 11:11 PM EDT [facility] ([facility]) Triglyceride Fluid Source Pleural fluid 07/16/2024 11:11 PM EDT [facility] ([facility]) Pleural Fluid Non-blood Collection / Unknown 07/15/2024 1:03 PM EDT 07/15/2024 1:03 PM EDT Narrative [facility] ([facility]) - 07/16/2024 11:11 PM EDT INTERPRETIVE INFORMATION: Triglycerides, Fluid For information on body fluid reference ranges and/or interpretive guidance visit [email or web address] This test was developed and its performance characteristics determined by [facility]. It has not been cleared or approved by the [place] Food and Drug Administration. This test was performed in a CLIA certified laboratory and is intended for clinical purposes. Performed By: [facility] [address] [place] [address] Hyperbaric Nurse: Austin Bernal MD, PhD CLIA Number: [id number] us Marquita Arndt MD LAB REF LAB BLOOD AND FL UID ORD Final Result Performing Organization Address [facility]/ZIP Co de Phone Number [facility] ([facility]) [address] [place] [address] * (ABNORMAL) POCT glucose meter (07/15/2024 12:43 PM EDT) [facility] POCT Glucose 100(H) 74 - 99 mg/dL 07/15/2024 12:45 PM EDT [facility] Comment:Accuracy of a glucos e result obtained from a capillary whole blood specimen relies upon adequate, non-compromised capillary blood flow. If the capillary glucose result is not consistent with the patient's clinical signs and symptoms, glucose testing should be repeated with either an arterial or venous sample on the glucometer or sent to the main labortory for testing. Comment 07/15/2024 12:45 PM EDT [facility] Drilling Fluids Specialist ID Sabrina Holcomb 07/15/2024 12:45 PM EDT HEALTHCARE LAB Device ID [id number] 07/15/2024 12:45 PM EDT [facility] Specimen Type POC Capillary 07/15/2024 12:45 PM EDT [facility] Blood Capillary blood specimen / Unknown 07/15/2024 12:43 PM EDT 07/15/2024 12:45 PM EDT Marquita Arndt MD LAB POINT OF CAR E TEST DOCKED DEVICE UNSOLICITED RESULTS Final Result [facility] [address] [place] [address] * POCT glucose meter (07/15/2024 11:56 AM EDT) [facility] POCT Glucose 74 74 - 99 mg/dL 07/15/2024 12:01 PM EDT [facility] Comment:Accuracy of a glucos e result obtained from a capillary whole blood specimen relies upon adequate, non-compromised capillary blood flow. If the capillary glucose result is not consistent with the patient's clinical signs and symptoms, glucose testing should be repeated with either an arterial or venous sample on the glucometer or sent to the main labortory for testing. Comment 07/15/2024 12:01 PM EDT [facility] Drilling Fluids Specialist ID Sabrina Holcomb 07/15/2024 12:01 PM EDT HEALTHCARE LAB Device ID [id number] 07/15/2024 12:01 PM EDT [facility] Specimen Type POC Capillary 07/15/2024 12:01 PM EDT [facility] Blood Capillary blood specimen / Unknown 07/15/2024 11:56 AM EDT 07/15/2024 12:01 PM EDT Marquita Arndt MD LAB POINT OF CAR E TEST DOCKED DEVICE UNSOLICITED RESULTS Final Result Performing Organization Address [facility] de Phone Number [facility] [address] [place] [address] * (ABNORMAL) POCT glucose meter (07/15/2024 11:35 AM EDT) [facility] POCT Glucose 63(L) 74 - 99 mg/dL 07/15/2024 11:39 AM EDT [facility] Comment:Accuracy of a glucos e result obtained from a capillary whole blood specimen relies upon adequate, non-compromised capillary blood flow. If the capillary glucose result is not consistent with the patient's clinical signs and symptoms, glucose testing should be repeated with either an arterial or venous sample on the glucometer or sent to the main labortory for testing. Comment 07/15/2024 11:39 AM EDT [facility] Drilling Fluids Specialist ID Sabrina Holcomb 07/15/2024 11:39 AM EDT HEALTHCARE LAB Device ID [id number] 07/15/2024 11:39 AM EDT [facility]ALTH[facility] LAB Specimen Type POC Capillary 07/15/2024 11:39 AM EDT [facility] Blood Capillary blood specimen / Unknown 07/15/2024 11:35 AM EDT 07/15/2024 11:39 AM EDT Marquita Arndt MD LAB POINT OF CAR E TEST DOCKED DEVICE UNSOLICITED RESULTS Final Result Performing Organization Address [facility] de Phone Number [facility] [address] [place] [address] * XR Chest 1 View (07/15/2024 10:54 AM EDT) Anatomical Region Laterality Modality Chest Digital Radiogra phy Impressions 07/15/2024 12:10 PM EDT Significantly decreased small right pleural effusion. No pneumothorax. CRITICAL RESULT: No. COMMUNICATION: Per this written report. Preliminary report signed by Madi León MD on 07/15/2024 10:59 AM By electronically signing this report, I, the attending physician, attest that I have personally reviewed the images/data for the above examination(s) and agree with the final edited report. Drafted by Madi León MD on 07/15/2024 10:57 AM Final report signed by Rafa Vines MD on 07/15/2024 12:10 PM Narrative 07/15/2024 12:10 PM EDT CLINICAL INDICATION: post thoracentesis TECHNIQUE: XR CHEST 1 VIEW COMPARISON: CTA PE July 13, 2024 Chest radiograph July 12, 2024 FINDINGS: Stable support hardware. Stable mediastinal contours and enlarged cardiac silhouette. Significantly decreased small right pleural effusion. Unchanged small left pleural effusion. No consolidation. No pneumothorax. Mild pulmonary vascular congestion. Procedure Note Rafa Vines MD - 07/15/2024 CLINICAL INDICATION: post thoracentesis TECHNIQUE: XR CHEST 1 VIEW COMPARISON: CTA PE July 13, 2024 Chest radiograph July 12, 2024 FINDINGS: Stable support hardware. Stable mediastinal contours and enlarged cardiacsilhouette. Significantly decreased small right pleural effusion.Unchanged small left pleural effusion. No consolidation. No pneumothorax.Mild pulmonary vascular congestion. IMPRESSION: Significantly decreased small right pleural effusion. No pneumothorax. CRITICAL RESULT: No. COMMUNICATION: Per this written report. Preliminary report signed by Madi León MD on 07/15/2024 10:59 AM By electronically signing this report, I, the attending physician, attestthat I have personally reviewed the images/data for the aboveexamination(s) and agree with the final edited report. Drafted by Madi León MD on 07/15/2024 10:57 AM Final report signed by Rafa Vines MD on 07/15/2024 12:10 PM Marquita Arndt MD IMG XR PROCEDURES Final Result * ID THORACENTESIS NEEDLE/CATH PLEURA W/IMAGING, HC THORACENTESIS NEEDLE/CATH PLEURA W/IMAGING (07/15/2024 9:43 AM EDT) Narrative [facility] MD - 07/15/2024 9:43 AM EDT [facility] MD 07/15/2024 10:41 AM Thoracentesis Performed by: Giovanni Garg MD Authorized by: Marquita Arndt MD Consent: Consent obtained: Written Consent given by: Patient Risks, benefits, and alternatives were discussed: yes Risks discussed: Bleeding, infection, pain, pneumothorax and incomplete drainage Alternatives discussed: No treatment, delayed treatment and observation [place] protocol: Procedure explained and questions answered to patient or proxy's satisfaction: yes Relevant documents present and verified: yes Test results available: yes Imaging studies available: yes Patient identity confirmed: Verbally with patient and arm band Attending Supervision?: no Sedation: Sedation type: None Anesthesia: Anesthesia method: Local infiltration Local anesthetic: Lidocaine 1% w/o epi Procedure details: Preparation: Patient was prepped and draped in usual sterile fashion Percutaneous Approach: yes Patient position: Sitting Location: R midaxillary line Intercostal space: 6th Puncture method: Vebf-poa-zkxiom catheter Ultrasound guidance: yes Indwelling catheter: Removed following drainage Catheter size: 8 Fr Number of attempts: 1 Drainage characteristics: Serosanguinous Post-procedure details: Chest x-ray performed: no (ordered and pending) Procedure completion: Tolerated well, no immediate complications Comments: 900cc bronze colored fluid removed and sent for lab studies. CXR pending. us Marquita Arndt MD IN CLINIC/BEDSIDE ORDERA BLES Final Result * Body fluid, cytospin, pathologist interpretation (07/15/2024 9:34 AM EDT) Specimen Type Body Fluid LAB HEMATOLOGY METHOD 07/16/2024 3:18 PM EDT [facility] Specimen Source, Body Fluid Pleural, Right LAB HEMATOLOGY METHOD 07/16/2024 3:18 PM EDT [facility] Clinical Diagnosis, Body Fluid Pleural effusion, heart failure LAB HEMATOLOGY METHOD 07/16/2024 3:18 PM EDT [facility] Interpretation , Body Fluid No evidence of malignancy Acute and chronic inflammatory cells Moderate blood A resident was involved in the service. I attest I examined the relevant preparations for the specimens and confirmed the diagnosis or interpretation. 07/16/2024 3:18 PM EDT [facility] Pathologist Signature, Body Fluid 07/16/2024 3:18 PM EDT [facility] Comment:Reviewed by: Katerine jiang MD LAB CP ASR DISCLAIMER Yes 07/16/2024 3:18 PM EDT [facility] Body Fluid Structure of right pleural cavity / Unknown Non-blood Collection / Unknown 07/15/2024 9:34 AM EDT 07/15/2024 9:45 AM EDT us Marquita Arndt MD LAB BODY FLUIDS AND STOO LS ORDERABLES Final Result [facility] [address] [place] [address] * (ABNORMAL) Body Fluid Cell Count w/ Diff - Pleural Right (07/15/2024 9:34 AM EDT) Color, Body fluid [place] LAB HEMATOLOGY METHOD 07/15/2024 5:24 PM EDT [facility] Appearance, Body fluid Cloudy(A) LAB HEMATOLOGY METHOD 07/15/2024 5:24 PM EDT [facility] Volume, Body fluid 7.0 cc LAB HEMATOLOGY METHOD 07/15/2024 5:24 PM EDT [facility] Fluid Container Tube 3 LAB HEMATOLOGY METHOD 07/15/2024 5:24 PM EDT [facility] Red Blood Cell Count, Body fluid 16,000 uL LAB HEMATOLOGY METHOD 07/15/2024 5:24 PM EDT [facility] Total Nucleated Cell Count, Body fluid 587 uL LAB HEMATOLOGY METHOD 07/15/2024 5:24 PM EDT [facility] Neutrophils %, Body fluid 19 % LAB HEMATOLOGY METHOD 07/15/2024 5:24 PM EDT [facility] Lymphocytes %, Body fluid 53 % LAB HEMATOLOGY METHOD 07/15/2024 5:24 PM EDT [facility] Monocytes/Macro phages %, Body fluid 24 % LAB HEMATOLOGY METHOD 07/15/2024 5:24 PM EDT [facility] Eosinophils %, Body fluid 1 % LAB HEMATOLOGY METHOD 07/15/2024 5:24 PM EDT [facility] Lining/Mesothel ial Cells %, Body fluid 3 % LAB HEMATOLOGY METHOD 07/15/2024 5:24 PM EDT [facility] Neutrophils Absolute (PMN), Body fluid 112 uL LAB HEMATOLOGY METHOD 07/15/2024 5:24 PM EDT [facility] Lymphocytes Absolute, Body fluid 311 uL LAB HEMATOLOGY METHOD 07/15/2024 5:24 PM EDT [facility] Monocytes/Macro phages Absolute, Body fluid 141 uL LAB HEMATOLOGY METHOD 07/15/2024 5:24 PM EDT [facility] Eosinophils Absolute, Body fluid 6 uL LAB HEMATOLOGY METHOD 07/15/2024 5:24 PM EDT [facility] Basophils Absolute, Body fluid 0 uL LAB HEMATOLOGY METHOD 07/15/2024 5:24 PM EDT [facility] Lining/Mesothel ial Cells Absolute, Body fluid 18 uL LAB HEMATOLOGY METHOD 07/15/2024 5:24 PM EDT [facility] Basophils %, Body fluid 0 % LAB HEMATOLOGY METHOD 07/15/2024 5:24 PM EDT [facility] Body Fluid Structure of right pleural cavity / Unknown Non-blood Collection / Unknown 07/15/2024 9:34 AM EDT 07/15/2024 9:45 AM EDT us Marquita Arndt MD LAB BODY FLUIDS AND STOOLS ORDERABLES NO SPECIMEN TYPE/SOURCE Final Result [address] [address] * Fungal Culture, Sterile Body Fluid (NOT CSF) and JAS (07/15/2024 9:31 AM EDT) Culture No Fungal Growth at 3 Weeks 08/06/2024 8:50 AM EDT [facility] JAS No fungal elements seen 08/06/2024 8:50 AM EDT [facility] Pleural Fluid Specimen from pleura obtained by thoracentesis / Unknown Non-blood Collection / Unknown 07/15/2024 9:31 AM EDT 07/15/2024 9:52 AM EDT us Marquita Arndt MD LAB MICROBIOLOGY - GENER AL ORDERABLES Final Result [facility] [address] [place] [address] * Glucose - Pleural Right (07/15/2024 9:31 AM EDT) Glucose, Fluid 143 mg/dL 07/15/2024 10:58 AM EDT [facility] Pleural Fluid Structure of right pleural cavity / Unknown Non-blood Collection / Unknown 07/15/2024 9:31 AM EDT 07/15/2024 9:45 AM EDT Narrative [facility] - 07/15/2024 10:58 AM EDT Pleural No established reference interval. Results should be interpreted in comparison to the concentration in blood and in conjunction with the clinical context. Normal pleural fluid glucose is similar to serum concentrations. Pleural fluid transudates and most exudates usually have glucose concentrations of >60 mg/dL. Pleural fluid exudates with glucose concentrations <60 mg/dL have been associated with conditions such as para-pneumonic effusion, tuberculosis, malignancy, empyema, and/or rheumatoid disease. Marquita Arndt MD LAB BODY FLUIDS AND STOO LS ORDERABLES Final Result [facility] [address] [place] [address] * Cytology - Pleural Right (07/15/2024 9:31 AM EDT) Case Report Cytology Case: [id number] Authorizing Provider: Marquita Arndt MD Collected: 07/15/2024 0931 Ordering Location: [facility] Inpatient Received: 07/15/2024 1057 Pathologist: Nelsy Robles MD Specimen: Pleural Fluid, Right, PLEURAL FLUID, RIGHT 07/16/2024 11:06 AM EDT [facility] Final Diagnosis A. PLEURAL FLUID, RIGHT - VERY RARE ATYPICAL FAVOR REACTIVE MESOTHELIAL CELLS, SEE COMMENT 07/16/2024 11:06 AM EDT [facility] at 1106 EDT Comment There are very rare atypical cells on the concentrate which are favored to represent reactive mesothelial cells. The cell block is virtually acellular and therefore no further evaluation can be performed on this specimen. 07/16/2024 11:06 AM EDT [facility] Clinical History Pleural effusion 07/16/2024 11:06 AM EDT [facility] Previous Cancer Primary Site Other/Unknown Primary Site 07/16/2024 11:06 AM EDT [facility] Gross Description A. PLEURAL FLUID, RIGHT 15 mls orange fluid for cell block and thin prep processing Cold Time: 2h 58m 07/16/2024 11:06 AM EDT [facility] Fluid Structure of right pleural cavity / Unknown 07/15/2024 9:31 AM EDT 07/15/2024 10:57 AM EDT us Marquita Arndt MD LAB CYTOLOGY ORDERABLES Final Result [facility] [address] [place] [address] * Lactate Dehydrogenase, Pleural Fluid - Right (07/15/2024 9:31 AM EDT) LDH, Fluid 123 U/L 07/15/2024 10:58 AM EDT [facility] Pleural Fluid Structure of right pleural cavity / Unknown Non-blood Collection / Unknown 07/15/2024 9:31 AM EDT 07/15/2024 9:45 AM EDT Narrative [facility] - 07/15/2024 10:58 AM EDT No established reference interval. Results should be interpreted in comparison to the concentration in blood and in conjunction with the clinical context. Pleural fluid LDH and total protein measurements are used for differentiation of exudates and transudates. Light's criteria can be used to identify most pleural exudative effusions if one or more of the following criteria are present: (1) pleural cdmlo-oe-kzljy protein ratio of >0.5, (2) pleural ojypv-zp-bdxse LDH ratio of >0.6, or (3) a pleural fluid LDH activity that is >2/3 the upper limit of a normal serum LDH activity. Light's criteria may misclassify ~25% of transudates as exudates in heart failure. These can be identified by calculating a rqjob-up-ufkhswu albumin gradient (>1.2 g/dL) and/or a ibdyl-vi-shbex protein gradient (>3.1 g/dL). Marquita Arndt MD LAB BODY FLUIDS AND STOO LS ORDERABLES Final Result Performing Organization Address [facility] Co de Phone Number [facility] [address] [place] [address] * Total Protein, Pleural Fluid - Pleural Right (07/15/2024 9:31 AM EDT) Total Protein, Fluid 2.9 g/dL 07/15/2024 10:58 AM EDT [facility] Pleural Fluid Structure of right pleural cavity / Unknown Non-blood Collection / Unknown 07/15/2024 9:31 AM EDT 07/15/2024 9:45 AM EDT Narrative [facility] - 07/15/2024 10:58 AM EDT This test was developed and its performance characteristics determined by [facility]. The U.S. Food and Drug Administration has not approved or cleared this test. However, FDA clearance or approval is not currently required for clinical use. The results are not intended to be used as the sole means for clinical diagnosis or patient management decisions. Result [facility] Marquita Arndt MD LAB BODY FLUIDS AND STOO LS ORDERABLES Final Result Performing Organization Address [facility] de Phone Number [facility] [address] [place] [address] * Body Fluid Culture and Gram Stain - Pleural Right (07/15/2024 9:31 AM EDT) Culture No growth at day 4 2024 5:57 AM EDT [facility] Gram Stain Result Few Polymorphonuclear leukocytes 07/18/2024 5:57 AM EDT [facility] Gram Stain Result No organisms seen 07/18/2024 5:57 AM EDT [facility] Pleural Fluid Specimen from pleura obtained by thoracentesis / Unknown Non-blood Collection / Unknown 07/15/2024 9:31 AM EDT 07/15/2024 9:52 AM EDT Marquita Arndt MD LAB MICROBIOLOGY - GENER AL ORDERABLES Final Result Performing Organization Address City/[facility] Co de Phone Number [facility] [address] [place] [address] * (ABNORMAL) POCT glucose meter (07/15/2024 7:30 AM EDT) POCT Glucose 118(H) 74 - 99 mg/dL 07/15/2024 7:35 AM EDT [facility] Comment:Accuracy of a glucos e result obtained from a capillary whole blood specimen relies upon adequate, non-compromised capillary blood flow. If the capillary glucose result is not consistent with the patient's clinical signs and symptoms, glucose testing should be repeated with either an arterial or venous sample on the glucometer or sent to the main labortory for testing. Comment 07/15/2024 7:35 AM EDT [facility] Drilling Fluids Specialist ID Sabrina Holcomb 07/15/2024 7:35 AM EDT [facility] Device ID [id number] 07/15/2024 7:35 AM EDT [facility] Specimen Type POC Capillary 07/15/2024 7:35 AM EDT [facility] Blood Capillary blood specimen / Unknown 07/15/2024 7:30 AM EDT 07/15/2024 7:35 AM EDT Marquita Arndt MD LAB POINT OF CAR E TEST DOCKED DEVICE UNSOLICITED RESULTS Final Result Performing Organization Address City/[facility] Co de Phone Number [facility] [address] [place] [address] * (ABNORMAL) POCT glucose meter (07/15/2024 4:19 AM EDT) POCT Glucose 123(H) 74 - 99 mg/dL 07/15/2024 6:09 AM EDT [facility] Comment:Accuracy of a glucos e result obtained from a capillary whole blood specimen relies upon adequate, non-compromised capillary blood flow. If the capillary glucose result is not consistent with the patient's clinical signs and symptoms, glucose testing should be repeated with either an arterial or venous sample on the glucometer or sent to the main labortory for testing. Comment 07/15/2024 6:09 AM EDT [facility] Drilling Fluids Specialist ID Karson Kaufman 07/16/19 6:09 AM EDT [facility]ALTH[facility] LAB Device ID [id number] 07/15/2024 6:09 AM EDT [facility] Specimen Type POC Capillary 07/15/2024 6:09 AM EDT [facility] Blood Capillary blood specimen / Unknown 07/15/2024 4:19 AM EDT 07/15/2024 6:09 AM EDT us Marquita Arndt MD LAB POINT OF CAR E TEST DOCKED DEVICE UNSOLICITED RESULTS Final Result Performing Organization Address [facility] Co de Phone Number [facility] [address] [place] [address] * (ABNORMAL) Prothrombin Time/INR (07/15/2024 3:30 AM EDT) Prothrombin Time 20.7(H) 12.0 - 14.3 sec LAB COAGULATION METHOD 07/15/2024 4:05 AM EDT [facility] INR 1.8(H) 0.9 - 1.1 LAB COAGULATION METHOD 07/15/2024 4:05 AM EDT [facility] Blood Venous blood specimen / Unknown Venipuncture / Unknown 07/15/2024 3:30 AM EDT 07/15/2024 3:36 AM EDT Narrative [facility] - 07/15/2024 4:05 AM EDT OPTIMAL INR RANGES FOR PATIENT ON ORAL ANTICOAGULANT THERAPY Prevention of venous thromboembolism INR 2.0 to 3.0 In patients with heart disease: Atrial fibrillation INR 2.0 to 3.0 Valvular heart disease INR 2.0 to 3.0 Tissue heart valves INR 2.0 to 3.0 Mechanical prosthetic valves INR 2.5 to 3.5 Prevention of recurrent [place] INR 2.5 to 3.5 us Marquita Arndt MD LAB BLOOD ORDERABLES Fin al Result Performing Organization Address City/[facility]/ZIP Co de Phone Number [facility] [address] [place] [address] * (ABNORMAL) Basic metabolic panel (07/15/2024 3:30 AM EDT) Glucose, Plasma 147(H) 74 - 99 mg/dL 07/15/2024 4:05 AM EDT [facility] BUN, Plasma 16 8 - 23 mg/dL 07/15/2024 4:05 AM EDT [facility] Creatinine, Plasma 1.06 0.60 - 1.10 mg/dL 07/15/2024 4:05 AM EDT [facility] BUN/Creatinine Ratio 15 07/15/2024 4:05 AM EDT [facility] Sodium, Plasma 131(L) 136 - 145 mmol/L 07/15/2024 4:05 AM EDT [facility] Potassium, Plasma 4.3 3.6 - 4.9 mmol/L 07/15/2024 4:05 AM EDT [facility] Chloride, Plasma 93(L) 97 - 107 mmol/L 07/15/2024 4:05 AM EDT [facility] CO2, Plasma 28 22 - 29 mmol/L 07/15/2024 4:05 AM EDT [facility] Anion Gap 10 6 - 16 mmol/L 07/15/2024 4:05 AM EDT [facility] Total Calcium, Plasma 8.9 8.9 - 10.2 mg/dL 07/15/2024 4:05 AM EDT [facility] eGFRcr 55.6 mL/min/1.7 3m*2 07/15/2024 4:05 AM EDT [facility] Comment:Reported eGFRcr in m L/min/1.73m2 is based the CKD-EPI 2020 equation that does not use a race coefficient. Blood Venous blood specimen / Unknown Venipuncture / Unknown 07/15/2024 3:30 AM EDT 07/15/2024 3:36 AM EDT us Marquita Arndt MD LAB BLOOD ORDERABLES Fin al Result [facility] [address] [place] [address] * (ABNORMAL) CBC and differential (07/15/2024 3:30 AM EDT) WBC Count 6.14 3.70 - 10.30 10*3/uL LAB HEMATOLOGY METHOD 07/15/2024 3:43 AM EDT [facility] [facility] RBC Count 3.31(L) 3.90 - 5.20 10*6/uL LAB HEMATOLOGY METHOD 07/15/2024 3:43 AM EDT [facility] HGB 9.8(L) 11.2 - 15.7 g/dL LAB HEMATOLOGY METHOD 07/15/2024 3:43 AM EDT [facility] HCT 31.8(L) 34.0 - 45.0 % LAB HEMATOLOGY METHOD 07/15/2024 3:43 AM EDT [facility] Platelet Count 377(H) 155 - 369 10*3/uL LAB HEMATOLOGY METHOD 07/15/2024 3:43 AM EDT [facility] MCV 96 79 - 98 fL LAB HEMATOLOGY METHOD 07/15/2024 3:43 AM EDT [facility] MCH 29.6 26.0 - 32.0 pg LAB HEMATOLOGY METHOD 07/15/2024 3:43 AM EDT [facility] MCHC 30.8 30.7 - 35.5 g/dL LAB HEMATOLOGY METHOD 07/15/2024 3:43 AM EDT [facility] RDW 14.2 11.5 - 14.5 % LAB HEMATOLOGY METHOD 07/15/2024 3:43 AM EDT [facility] MPV 9.4 8.8 - 12.5 fL LAB HEMATOLOGY METHOD 07/15/2024 3:43 AM EDT [facility] nRBC 0.0 <=0.0 per 100 WBCs LAB HEMATOLOGY METHOD 07/15/2024 3:43 AM EDT [facility] Differential Type Automated LAB HEMATOLOGY METHOD 07/15/2024 3:43 AM EDT [facility] Neutrophils % 68 % LAB HEMATOLOGY METHOD 07/15/2024 3:43 AM EDT [facility] Lymphocytes % 15 % LAB HEMATOLOGY METHOD 07/15/2024 3:43 AM EDT [facility] Monocytes % 13 % LAB HEMATOLOGY METHOD 07/15/2024 3:43 AM EDT [facility] Eosinophils % 2 % LAB HEMATOLOGY METHOD 07/15/2024 3:43 AM EDT [facility] Basophils % 1 % LAB HEMATOLOGY METHOD 07/15/2024 3:43 AM EDT [facility] Immature Granulocytes % 1 % LAB HEMATOLOGY METHOD 07/15/2024 3:43 AM EDT [facility] Neutrophils Absolute 4.22 1.60 - 6.10 10*3/uL LAB HEMATOLOGY METHOD 07/15/2024 3:43 AM EDT [facility] Lymphocytes Absolute 0.91(L) 1.20 - 3.90 10*3/uL LAB HEMATOLOGY METHOD 07/15/2024 3:43 AM EDT [facility] Monocytes Absolute 0.77 0.30 - 0.90 10*3/uL LAB HEMATOLOGY METHOD 07/15/2024 3:43 AM EDT [facility] Eosinophils Absolute 0.14 0.00 - 0.50 10*3/uL LAB HEMATOLOGY METHOD 07/15/2024 3:43 AM EDT [facility] Basophils Absolute 0.07 0.00 - 0.10 10*3/uL LAB HEMATOLOGY METHOD 07/15/2024 3:43 AM EDT [facility] Immature Granulocytes Absolute 0.03 0.00 - 0.06 10*3/uL LAB HEMATOLOGY METHOD 07/15/2024 3:43 AM EDT [facility] Blood Venous blood specimen / Unknown Venipuncture / Unknown 07/15/2024 3:30 AM EDT 07/15/2024 3:36 AM EDT Narrative [facility] - 07/15/2024 3:43 AM EDT Therapeutic decision making should be based on absolute values, rather than percentages. us Marquita Arndt MD LAB BLOOD ORDERABLES Fin al Result [facility] [address] [place] [address] * (ABNORMAL) POCT glucose meter (07/14/2024 8:27 PM EDT) POCT Glucose 210(H) 74 - 99 mg/dL 07/14/2024 8:28 PM EDT [facility] Comment:Accuracy of a glucos e result obtained from a capillary whole blood specimen relies upon adequate, non-compromised capillary blood flow. If the capillary glucose result is not consistent with the patient's clinical signs and symptoms, glucose testing should be repeated with either an arterial or venous sample on the glucometer or sent to the main labortory for testing. Comment 07/14/2024 8:28 PM EDT [facility] Drilling Fluids Specialist ID Zee Peter 025 8:28 PM EDT [facility] Device ID [id number] 07/14/2024 8:28 PM EDT [facility] Specimen Type POC Capillary 07/14/2024 8:28 PM EDT [facility] Blood Capillary blood specimen / Unknown 07/14/2024 8:27 PM EDT 07/14/2024 8:28 PM EDT us Marquita Arndt MD LAB POINT OF CAR E TEST DOCKED DEVICE UNSOLICITED RESULTS Final Result Performing Organization Address City/State/[facility] Co de Phone Number [facility] [address] [place] [address] * (ABNORMAL) POCT glucose meter (07/14/2024 4:27 PM EDT) POCT Glucose 197(H) 74 - 99 mg/dL 07/14/2024 4:29 PM EDT [facility] Comment:Accuracy of a glucos e result obtained from a capillary whole blood specimen relies upon adequate, non-compromised capillary blood flow. If the capillary glucose result is not consistent with the patient's clinical signs and symptoms, glucose testing should be repeated with either an arterial or venous sample on the glucometer or sent to the main labortory for testing. Comment 07/14/2024 4:29 PM EDT [facility] Drilling Fluids Specialist ID Marialuisa Vallejo 4:29 PM EDT [facility] Device ID [id number] 07/14/2024 4:29 PM EDT [facility] Specimen Type POC Capillary 07/14/2024 4:29 PM EDT [facility] Blood Capillary blood specimen / Unknown 07/14/2024 4:27 PM EDT 07/14/2024 4:29 PM EDT us Marquita Arndt MD LAB POINT OF CAR E TEST DOCKED DEVICE UNSOLICITED RESULTS Final Result Performing Organization Address [facility] de Phone Number [facility] [address] [place] [address] * (ABNORMAL) POCT glucose meter (07/14/2024 12:42 PM EDT) POCT Glucose 189(H) 74 - 99 mg/dL 07/14/2024 12:44 PM EDT [facility] Comment:Accuracy of a glucos e result obtained from a capillary whole blood specimen relies upon adequate, non-compromised capillary blood flow. If the capillary glucose result is not consistent with the patient's clinical signs and symptoms, glucose testing should be repeated with either an arterial or venous sample on the glucometer or sent to the main labortory for testing. Comment 07/14/2024 12:44 PM EDT [facility] Drilling Fluids Specialist ID Marialuisa Vallejo 12:44 PM EDT [facility] Device ID [id number] 07/14/2024 12:44 PM EDT [facility] Specimen Type POC Capillary 07/14/2024 12:44 PM EDT [facility] Blood Capillary blood specimen / Unknown 07/14/2024 12:42 PM EDT 07/14/2024 12:44 PM EDT us Marquita Arndt MD LAB POINT OF CAR E TEST DOCKED DEVICE UNSOLICITED RESULTS Final Result Performing Organization Address [facility] de Phone Number [facility] [address] [place] [address] * (ABNORMAL) POCT glucose meter (07/14/2024 11:45 AM EDT) POCT Glucose 173(H) 74 - 99 mg/dL 07/14/2024 11:48 AM EDT [facility] Comment:Accuracy of a glucos e result obtained from a capillary whole blood specimen relies upon adequate, non-compromised capillary blood flow. If the capillary glucose result is not consistent with the patient's clinical signs and symptoms, glucose testing should be repeated with either an arterial or venous sample on the glucometer or sent to the main labortory for testing. Comment 07/14/2024 11:48 AM EDT [facility] Drilling Fluids Specialist ID Sabrina Holcomb 07/14/2024 11:48 AM EDT [facility] LAB Device ID [id number] 07/14/2024 11:48 AM EDT [facility] Specimen Type POC Capillary 07/14/2024 11:48 AM EDT [facility] Blood Capillary blood specimen / Unknown 07/14/2024 11:45 AM EDT 07/14/2024 11:48 AM EDT us Marquita Arndt MD LAB POINT OF CAR E TEST DOCKED DEVICE UNSOLICITED RESULTS Final Result Performing Organization Address City/[facility]/ZIP Co de Phone Number [facility] [address] [place] [address] * Lavender Top (07/14/2024 11:17 AM EDT) Extra Hold for add-ons 07/14/2024 2:01 PM EDT [facility] Comment:Auto resulted. Blood Venous blood specimen / Unknown 07/14/2024 11:17 AM EDT 07/14/2024 11:27 AM EDT Result Marjorie Arndt MD LAB BLOOD ORDERABLES Fin al Result Performing Organization Address [facility]/ZIP Co de Phone Number [facility] [address] [place] [address] * Light Green Top (07/14/2024 11:17 AM EDT) Extra Hold for add-ons 07/14/2024 2:01 PM EDT [facility] Comment:Auto resulted. Blood Venous blood specimen / Unknown 07/14/2024 11:17 AM EDT 07/14/2024 11:27 AM EDT us Marquita Arndt MD LAB BLOOD ORDERABLES Fin al Result Performing Organization Address City/[facility]/ZIP Co de Phone Number [facility] [address] [place] [address] * (ABNORMAL) Prothrombin Time/INR (07/14/2024 11:17 AM EDT) Prothrombin Time 24.6(H) 12.0 - 14.3 sec LAB COAGULATION METHOD 07/14/2024 11:48 AM EDT [facility] INR 2.2(H) 0.9 - 1.1 LAB COAGULATION METHOD 07/14/2024 11:48 AM EDT [facility] Blood Venous blood specimen / Unknown Venipuncture / Unknown 07/14/2024 11:17 AM EDT 07/14/2024 11:26 AM EDT Narrative [facility] - 07/14/2024 11:48 AM EDT OPTIMAL INR RANGES FOR PATIENT ON ORAL ANTICOAGULANT THERAPY Prevention of venous thromboembolism INR 2.0 to 3.0 In patients with heart disease: Atrial fibrillation INR 2.0 to 3.0 Valvular heart disease INR 2.0 to 3.0 Tissue heart valves INR 2.0 to 3.0 Mechanical prosthetic valves INR 2.5 to 3.5 Prevention of recurrent [place] INR 2.5 to 3.5 us Marquita Arndt MD LAB BLOOD ORDERABLES Fin al Result [facility] [address] [place] [address] * POCT glucose meter (07/14/2024 8:42 AM EDT) [facility] POCT Glucose 91 74 - 99 mg/dL 07/14/2024 8:43 AM EDT [facility] Comment:Accuracy of a glucos e result obtained from a capillary whole blood specimen relies upon adequate, non-compromised capillary blood flow. If the capillary glucose result is not consistent with the patient's clinical signs and symptoms, glucose testing should be repeated with either an arterial or venous sample on the glucometer or sent to the main labortory for testing. Comment 07/14/2024 8:43 AM EDT [facility] Drilling Fluids Specialist ID Marialuisa Vallejo 8:43 AM EDT [facility] Device ID [id number] 07/14/2024 8:43 AM EDT [facility] Specimen Type POC Capillary 07/14/2024 8:43 AM EDT [facility] Blood Capillary blood specimen / Unknown 07/14/2024 8:42 AM EDT 07/14/2024 8:43 AM EDT us Marquita Arndt MD LAB POINT OF CAR E TEST DOCKED DEVICE UNSOLICITED RESULTS Final Result [facility] [address] [place] [id number] * (ABNORMAL) CBC and differential (07/14/2024 2:08 AM EDT) [facility] WBC Count 6.94 3.70 - 10.30 10*3/uL LAB HEMATOLOGY METHOD 07/14/2024 2:27 AM EDT [facility] RBC Count 3.48(L) 3.90 - 5.20 10*6/uL LAB HEMATOLOGY METHOD 07/14/2024 2:27 AM EDT [facility] HGB 10.4(L) 11.2 - 15.7 g/dL LAB HEMATOLOGY METHOD 07/14/2024 2:27 AM EDT [facility] HCT 32.6(L) 34.0 - 45.0 % LAB HEMATOLOGY METHOD 07/14/2024 2:27 AM EDT [facility] Platelet Count 379(H) 155 - 369 10*3/uL LAB HEMATOLOGY METHOD 07/14/2024 2:27 AM EDT [facility] MCV 94 79 - 98 fL LAB HEMATOLOGY METHOD 07/14/2024 2:27 AM EDT [facility] MCH 29.9 26.0 - 32.0 pg LAB HEMATOLOGY METHOD 07/14/2024 2:27 AM EDT [facility] MCHC 31.9 30.7 - 35.5 g/dL LAB HEMATOLOGY METHOD 07/14/2024 2:27 AM EDT [facility] RDW 14.3 11.5 - 14.5 % LAB HEMATOLOGY METHOD 07/14/2024 2:27 AM EDT [facility] MPV 9.5 8.8 - 12.5 fL LAB HEMATOLOGY METHOD 07/14/2024 2:27 AM EDT [facility] nRBC 0.0 <=0.0 per 100 WBCs LAB HEMATOLOGY METHOD 07/14/2024 2:27 AM EDT [facility] Differential Type Automated LAB HEMATOLOGY METHOD 07/14/2024 2:27 AM EDT [facility] Neutrophils % 71 % LAB HEMATOLOGY METHOD 07/14/2024 2:27 AM EDT [facility] Lymphocytes % 13 % LAB HEMATOLOGY METHOD 07/14/2024 2:27 AM EDT [facility] Monocytes % 12 % LAB HEMATOLOGY METHOD 07/14/2024 2:27 AM EDT [facility] Eosinophils % 2 % LAB HEMATOLOGY METHOD 07/14/2024 2:27 AM EDT [facility] Basophils % 1 % LAB HEMATOLOGY METHOD 07/14/2024 2:27 AM EDT [facility] Immature Granulocytes % 1 % LAB HEMATOLOGY METHOD 07/14/2024 2:27 AM EDT [facility] Neutrophils Absolute 4.98 1.60 - 6.10 10*3/uL LAB HEMATOLOGY METHOD 07/14/2024 2:27 AM EDT [facility] Lymphocytes Absolute 0.91(L) 1.20 - 3.90 10*3/uL LAB HEMATOLOGY METHOD 07/14/2024 2:27 AM EDT [facility] Monocytes Absolute 0.82 0.30 - 0.90 10*3/uL LAB HEMATOLOGY METHOD 07/14/2024 2:27 AM EDT [facility] Eosinophils Absolute 0.11 0.00 - 0.50 10*3/uL LAB HEMATOLOGY METHOD 07/14/2024 2:27 AM EDT [facility] Basophils Absolute 0.07 0.00 - 0.10 10*3/uL LAB HEMATOLOGY METHOD 07/14/2024 2:27 AM EDT [facility] Immature Granulocytes Absolute 0.05 0.00 - 0.06 10*3/uL LAB HEMATOLOGY METHOD 07/14/2024 2:27 AM EDT [facility] Blood Venous blood specimen / Unknown Venipuncture / Unknown 07/14/2024 2:08 AM EDT 07/14/2024 2:13 AM EDT [facility] - 07/14/2024 2:27 AM EDT Therapeutic decision making should be based on absolute values, rather than percentages. us Marquita Arndt MD LAB BLOOD ORDERABLES Fin al Result Performing Organization Address City/[facility]/ZIP Co de Phone Number [facility] [address] [place] [address] * Phosphorus (07/14/2024 2:08 AM EDT) Phosphorus, Plasma 3.4 2.5 - 4.5 mg/dL 07/14/2024 2:44 AM EDT [facility] Blood Venous blood specimen / Unknown Venipuncture / Unknown 07/14/2024 2:08 AM EDT 07/14/2024 2:13 AM EDT Result Marjorie Arndt MD LAB BLOOD ORDERABLES Fin al Result Performing Organization Address [facility] Co de Phone Number [facility] [address] [place] [address] * (ABNORMAL) Magnesium (07/14/2024 2:08 AM EDT) Magnesium, Plasma 1.6(L) 1.9 - 2.4 mg/dL 07/14/2024 2:44 AM EDT [facility] Blood Venous blood specimen / Unknown Venipuncture / Unknown 07/14/2024 2:08 AM EDT 07/14/2024 2:13 AM EDT Result Marjorie Arndt MD LAB BLOOD ORDERABLES Fin al Result Performing Organization Address City/[facility]/ZIP Co de Phone Number [facility] [address] [place] [address] * (ABNORMAL) Basic metabolic panel (07/14/2024 2:08 AM EDT) Glucose, Plasma 175(H) 74 - 99 mg/dL 07/14/2024 2:44 AM EDT [facility] BUN, Plasma 16 8 - 23 mg/dL 07/14/2024 2:44 AM EDT [facility] Creatinine, Plasma 0.94 0.60 - 1.10 mg/dL 07/14/2024 2:44 AM EDT [facility] BUN/Creatinine Ratio 17 07/14/2024 2:44 AM EDT [facility] Sodium, Plasma 134(L) 136 - 145 mmol/L 07/14/2024 2:44 AM EDT [facility] Potassium, Plasma 3.7 3.6 - 4.9 mmol/L 07/14/2024 2:44 AM EDT [facility] Chloride, Plasma 93(L) 97 - 107 mmol/L 07/14/2024 2:44 AM EDT [facility] CO2, Plasma 28 22 - 29 mmol/L 07/14/2024 2:44 AM EDT [facility] Anion Gap 13 6 - 16 mmol/L 07/14/2024 2:44 AM EDT [facility] Total Calcium, Plasma 9.0 8.9 - 10.2 mg/dL 07/14/2024 2:44 AM EDT [facility] eGFRcr 64.2 mL/min/1.7 3m*2 07/14/2024 2:44 AM EDT [facility] Comment:Reported eGFRcr in m L/min/1.73m2 is based the CKD-EPI 2020 equation that does not use a race coefficient. Blood Venous blood specimen / Unknown Venipuncture / Unknown 07/14/2024 2:08 AM EDT 07/14/2024 2:13 AM EDT us Marquita Arndt MD LAB BLOOD ORDERABLES Fin al Result [facility] [address] [place] [address] * (ABNORMAL) POCT glucose meter (07/13/2024 9:47 PM EDT) POCT Glucose 157(H) 74 - 99 mg/dL 07/14/2024 12:10 AM EDT [facility] Comment:Accuracy of a glucos e result obtained from a capillary whole blood specimen relies upon adequate, non-compromised capillary blood flow. If the capillary glucose result is not consistent with the patient's clinical signs and symptoms, glucose testing should be repeated with either an arterial or venous sample on the glucometer or sent to the main labortory for testing. Comment 07/14/2024 12:10 AM EDT [facility] Drilling Fluids Specialist ID Megan Peterson 07/14/2024 12:10 AM EDT [facility] Device ID [id number] 07/14/2024 12:10 AM EDT [facility] Specimen Type POC Capillary 07/14/2024 12:10 AM EDT [facility] Blood Capillary blood specimen / Unknown 07/13/2024 9:47 PM EDT 07/14/2024 12:10 AM EDT us Marquita Arndt MD LAB POINT OF CAR E TEST DOCKED DEVICE UNSOLICITED RESULTS Final Result Performing Organization Address [facility] Co de Phone Number [facility] [address] [place] [address] * (ABNORMAL) POCT glucose meter (07/13/2024 9:19 PM EDT) [facility] Signature POCT Glucose 71(L) 74 - 99 mg/dL 07/13/2024 9:22 PM EDT [facility] Comment:Accuracy of a glucos e result obtained from a capillary whole blood specimen relies upon adequate, non-compromised capillary blood flow. If the capillary glucose result is not consistent with the patient's clinical signs and symptoms, glucose testing should be repeated with either an arterial or venous sample on the glucometer or sent to the main labortory for testing. Comment 07/13/2024 9:22 PM EDT [facility] Drilling Fluids Specialist ID Megan Peterson 07/13/2024 9:22 PM EDT [facility] LAB Device ID [id number] 07/13/2024 9:22 PM EDT [facility] Specimen Type POC Capillary 07/13/2024 9:22 PM EDT [facility] Blood Capillary blood specimen / Unknown 07/13/2024 9:19 PM EDT 07/13/2024 9:22 PM EDT us Marquita Arndt MD LAB POINT OF CAR E TEST DOCKED DEVICE UNSOLICITED RESULTS Final Result Performing Organization Address City/[facility] Co de Phone Number [facility] [address] [place] [address] * POCT glucose meter (07/13/2024 8:36 PM EDT) [facility] POCT Glucose 80 74 - 99 mg/dL 07/13/2024 8:38 PM EDT [facility] Comment:Accuracy of a glucos e result obtained from a capillary whole blood specimen relies upon adequate, non-compromised capillary blood flow. If the capillary glucose result is not consistent with the patient's clinical signs and symptoms, glucose testing should be repeated with either an arterial or venous sample on the glucometer or sent to the main labortory for testing. Comment 07/13/2024 8:38 PM EDT [facility] Drilling Fluids Specialist ID Megan Peterson 07/13/2024 8:38 PM EDT [facility] LAB Device ID [id number] 07/13/2024 8:38 PM EDT [facility] Specimen Type POC Capillary 07/13/2024 8:38 PM EDT [facility] Blood Capillary blood specimen / Unknown 07/13/2024 8:36 PM EDT 07/13/2024 8:38 PM EDT Marquita Arndt MD LAB POINT OF CAR E TEST DOCKED DEVICE UNSOLICITED RESULTS Final Result Performing Organization Address City/State/[facility] Co de Phone Number [facility] [address] [place] [address] * (ABNORMAL) POCT glucose meter (07/13/2024 4:24 PM EDT) [facility] POCT Glucose 171(H) 74 - 99 mg/dL 07/13/2024 4:25 PM EDT [facility] Comment:Accuracy of a glucos e result obtained from a capillary whole blood specimen relies upon adequate, non-compromised capillary blood flow. If the capillary glucose result is not consistent with the patient's clinical signs and symptoms, glucose testing should be repeated with either an arterial or venous sample on the glucometer or sent to the main labortory for testing. Comment 07/13/2024 4:25 PM EDT [facility] Drilling Fluids Specialist ID Boby Nguyen 07/14/19 4:25 PM EDT [facility] Device ID [id number] 07/13/2024 4:25 PM EDT [facility] Specimen Type POC Capillary 07/13/2024 4:25 PM EDT [facility] Blood Capillary blood specimen / Unknown 07/13/2024 4:24 PM EDT 07/13/2024 4:25 PM EDT us Marquita Arndt MD LAB POINT OF CAR E TEST DOCKED DEVICE UNSOLICITED RESULTS Final Result Performing Organization Address City/[facility]/ZIP Co de Phone Number [facility] [address] [place] [address] * (ABNORMAL) Prothrombin Time/INR (07/13/2024 3:57 PM EDT) Prothrombin Time 28.6(H) 12.0 - 14.3 sec 07/13/2024 4:28 PM EDT [facility] INR 2.7(H) 0.9 - 1.1 07/13/2024 4:28 PM EDT [facility] Blood Venous blood specimen / Unknown Venipuncture / Unknown 07/13/2024 3:57 PM EDT 07/13/2024 4:10 PM EDT Narrative [facility] - 07/13/2024 4:28 PM EDT OPTIMAL INR RANGES FOR PATIENT ON ORAL ANTICOAGULANT THERAPY Prevention of venous thromboembolism INR 2.0 to 3.0 In patients with heart disease: Atrial fibrillation INR 2.0 to 3.0 Valvular heart disease INR 2.0 to 3.0 Tissue heart valves INR 2.0 to 3.0 Mechanical prosthetic valves INR 2.5 to 3.5 Prevention of recurrent [place] INR 2.5 to 3.5 us Rajiv Mann MD LAB BLOOD ORDERABLES Final Resu lt [facility] [address] [place] [address] * Potassium (07/13/2024 3:26 PM EDT) Potassium, Plasma 3.8 3.6 - 4.9 mmol/L 07/13/2024 3:49 PM EDT [facility] Blood Venous blood specimen / Unknown Venipuncture / Unknown 07/13/2024 3:26 PM EDT 07/13/2024 3:28 PM EDT us Rajiv Mann MD LAB BLOOD ORDERABLES Final Resu lt Performing Organization Address [facility] Co de Phone Number [facility] [address] [place] [address] * (ABNORMAL) POCT glucose meter (07/13/2024 11:01 AM EDT) POCT Glucose 157(H) 74 - 99 mg/dL 07/13/2024 11:03 AM EDT [facility] Comment:Accuracy of a glucos e result obtained from a capillary whole blood specimen relies upon adequate, non-compromised capillary blood flow. If the capillary glucose result is not consistent with the patient's clinical signs and symptoms, glucose testing should be repeated with either an arterial or venous sample on the glucometer or sent to the main labortory for testing. Comment 07/13/2024 11:03 AM EDT [facility] Drilling Fluids Specialist ID Boby Nguyen 07/14/19 11:03 AM EDT [facility]ALTH[facility] LAB Device ID [id number] 07/13/2024 11:03 AM EDT [facility] Specimen Type POC Capillary 07/13/2024 11:03 AM EDT [facility] Blood Capillary blood specimen / Unknown 07/13/2024 11:01 AM EDT 07/13/2024 11:03 AM EDT us Marquita Arndt MD LAB POINT OF CAR E TEST DOCKED DEVICE UNSOLICITED RESULTS Final Result Performing Organization Address [facility] Co de Phone Number [facility] [address] [place] [address] * CT Angio Pulmonary Embolism (07/13/2024 10:07 AM EDT) Anatomical Region Laterality Modality Chest Computed Tomogra phy Impressions 07/13/2024 10:27 AM EDT No pulmonary embolism. Persistent moderate to large right and trace left pleural effusions with complete right lower lobe and partial right middle lobe consolidation/atelectasis. Mosaic attenuation indicative of small airway disease or small vessel disease. CRITICAL RESULT: No. COMMUNICATION: Per this written report. Drafted by Shanti Quintero MD on 07/13/2024 10:23 AM Final report signed by Shanti Quintero MD on 07/13/2024 10:27 AM Narrative 07/13/2024 10:27 AM EDT CLINICAL INDICATION: Pulmonary embolism (PE) suspected, high prob TECHNIQUE: Imaging of the chest was performed from thoracic inlet through upper abdomen, using spiral technique, following administration of IV contrast, Omnipaque 350, 100 mL per the pulmonary angiogram protocol. In addition, 3D images were created and reviewed. TOTAL DLP (Dose-Length Product): 229.06 mGy.cm. Please note: The reported value represents the total of one or more individual components during the CT acquisition on this date and at this time, and as such, the same value may appear in more than one CT report depending on the interpreting/reporting physicians. COMPARISON: 06/29/2024 FINDINGS: Pulmonary Arteries/Vessels: No pulmonary embolism. The thoracic aorta and coronary arteries are atherosclerotic. Pleural/Pericardial space: No pneumothorax. Moderate to large right effusion and trace left effusion are unchanged. No pericardial effusion. Lymph Nodes: No lymphadenopathy within the chest. Lungs: Unchanged complete right lower lobe and partial right middle lobe consolidation/atelectasis. Small atelectasis in the left lung base is seen. No new focal consolidation. Mosaic attenuation is noted. Mediastinum: Stable mild cardiomegaly. Severe mitral annular calcification. Chest wall: No chest wall hematoma or contusion. Bones: No acute fracture within the chest. Unchanged T12 compression deformity. Diffuse osteopenia throughout the spine with degenerative change Upper Abdomen: Limited imaging of the upper abdomen is unremarkable. Procedure Note Shanti Quintero MD - 07/13/2024 CLINICAL INDICATION: Pulmonary embolism (PE) suspected, high prob TECHNIQUE: Imaging of the chest was performed from thoracic inlet through upperabdomen, using spiral technique, following administration of IV contrast,Omnipaque 350, 100 mL per the pulmonary angiogram protocol. In addition,3D images were created and reviewed. TOTAL DLP (Dose-Length Product): 229.06 mGy.cm. Please note: The reportedvalue represents the total of one or more individual components during theCT acquisition on this date and at this time, and as such, the same valuemay appear in more than one CT report depending on theinterpreting/reporting physicians. COMPARISON: 06/29/2024 FINDINGS: Pulmonary Arteries/Vessels: No pulmonary embolism. The thoracic aorta andcoronary arteries are atherosclerotic. Pleural/Pericardial space: No pneumothorax. Moderate to large righteffusion and trace left effusion are unchanged. No pericardialeffusion. Lymph Nodes: No lymphadenopathy within the chest. Lungs: Unchanged complete right lower lobe and partial right middle lobeconsolidation/atelectasis. Small atelectasis in the left lung base isseen. No new focal consolidation. Mosaic attenuation is noted. Mediastinum: Stable mild cardiomegaly. Severe mitral annularcalcification. Chest wall: No chest wall hematoma or contusion. Bones: No acute fracture within the chest. Unchanged T12 compressiondeformity. Diffuse osteopenia throughout the spine with degenerativechange Upper Abdomen: Limited imaging of the upper abdomen is unremarkable. IMPRESSION: No pulmonary embolism. Persistent moderate to large right and trace left pleural effusions withcomplete right lower lobe and partial right middle lobeconsolidation/atelectasis. Mosaic attenuation indicative of small airway disease or small vesseldisease. CRITICAL RESULT: No. COMMUNICATION: Per this written report. Drafted by Shanti Quintero MD on 07/13/2024 10:23 AM Final report signed by Shanti Quintero MD on 07/13/2024 10:27 AM Deejay Schneider MD IMG CT PROCEDURES Final Result * (ABNORMAL) POCT glucose meter (07/13/2024 5:52 AM EDT) POCT Glucose 168(H) 74 - 99 mg/dL 07/13/2024 5:55 AM EDT [facility] Comment:Accuracy of a glucos e result obtained from a capillary whole blood specimen relies upon adequate, non-compromised capillary blood flow. If the capillary glucose result is not consistent with the patient's clinical signs and symptoms, glucose testing should be repeated with either an arterial or venous sample on the glucometer or sent to the main labortory for testing. Comment 07/13/2024 5:55 AM EDT [facility] Drilling Fluids Specialist ID Sabrina Fields 025 5:55 AM EDT [facility] Device ID [id number] 07/13/2024 5:55 AM EDT [facility] Specimen Type POC Capillary 07/13/2024 5:55 AM EDT [facility] Blood Capillary blood specimen / Unknown 07/13/2024 5:52 AM EDT 07/13/2024 5:55 AM EDT us Rajiv Mann MD LAB POINT OF CARE TE ST DOCKED DEVICE UNSOLICITED RESULTS Final Result Performing Organization Address [facility] Co de Phone Number [facility] [address] [place] [address] * (ABNORMAL) N-Terminal Probnp (07/13/2024 3:09 AM EDT) N-Terminal, PROBNP, Plasma 3,235(H) 0 - 899 pg/mL 07/13/2024 4:15 AM EDT [facility] Blood Venous blood specimen / Unknown Venipuncture / Unknown 07/13/2024 3:09 AM EDT 07/13/2024 3:45 AM EDT us Deejay Schneider MD LAB BLOOD ORDERABLES Final Res ult Performing Organization Address [facility] Co de Phone Number [facility] [address] [place] [address] * (ABNORMAL) Comprehensive metabolic panel (07/13/2024 3:09 AM EDT) Glucose, Plasma 229(H) 74 - 99 mg/dL 07/13/2024 4:15 AM EDT [facility] BUN, Plasma 16 8 - 23 mg/dL 07/13/2024 4:15 AM EDT [facility] Creatinine, Plasma 0.87 0.60 - 1.10 mg/dL 07/13/2024 4:15 AM EDT [facility] BUN/Creatinine Ratio 18 07/13/2024 4:15 AM EDT [facility] Sodium, Plasma 136 136 - 145 mmol/L 07/13/2024 4:15 AM EDT [facility] Potassium, Plasma 3.1(L) 3.6 - 4.9 mmol/L 07/13/2024 4:15 AM EDT [facility] Chloride, Plasma 93(L) 97 - 107 mmol/L 07/13/2024 4:15 AM EDT [facility] CO2, Plasma 33(H) 22 - 29 mmol/L 07/13/2024 4:15 AM EDT [facility] Anion Gap 10 6 - 16 mmol/L 07/13/2024 4:15 AM EDT [facility] Total Calcium, Plasma 8.9 8.9 - 10.2 mg/dL 07/13/2024 4:15 AM EDT [facility] Total Protein 6.9 6.3 - 7.9 g/dL 07/13/2024 4:15 AM EDT [facility] Albumin, Plasma 3.2(L) 3.5 - 5.2 g/dL 07/13/2024 4:15 AM EDT [facility] AST, Plasma 26 10 - 35 U/L 07/13/2024 4:15 AM EDT [facility] ALT, Plasma 15 10 - 35 U/L 07/13/2024 4:15 AM EDT [facility] Alkaline Phosphatase, Plasma 89 46 - 142 U/L 07/13/2024 4:15 AM EDT [facility] Total Bilirubin, Plasma 0.3 0.2 - 1.1 mg/dL 07/13/2024 4:15 AM EDT [facility] eGFRcr 70.5 mL/min/1.7 3m*2 07/13/2024 4:15 AM EDT [facility] Comment:Reported eGFRcr in m L/min/1.73m2 is based the CKD-EPI 2020 equation that does not use a race coefficient. Blood Venous blood specimen / Unknown Venipuncture / Unknown 07/13/2024 3:09 AM EDT 07/13/2024 3:45 AM EDT us Deejay Schneider MD LAB BLOOD ORDERABLES Final Res ult [facility] [address] [place] [address] * (ABNORMAL) CBC and differential (07/13/2024 3:09 AM EDT) [facility] WBC Count 5.75 3.70 - 10.30 10*3/uL LAB HEMATOLOGY METHOD 07/13/2024 3:42 AM EDT [facility] RBC Count 3.60(L) 3.90 - 5.20 10*6/uL LAB HEMATOLOGY METHOD 07/13/2024 3:42 AM EDT [facility] HGB 10.8(L) 11.2 - 15.7 g/dL LAB HEMATOLOGY METHOD 07/13/2024 3:42 AM EDT [facility] HCT 32.9(L) 34.0 - 45.0 % LAB HEMATOLOGY METHOD 07/13/2024 3:42 AM EDT [facility] Platelet Count 370(H) 155 - 369 10*3/uL LAB HEMATOLOGY METHOD 07/13/2024 3:42 AM EDT [facility] MCV 91 79 - 98 fL LAB HEMATOLOGY METHOD 07/13/2024 3:42 AM EDT [facility] MCH 30.0 26.0 - 32.0 pg LAB HEMATOLOGY METHOD 07/13/2024 3:42 AM EDT [facility] MCHC 32.8 30.7 - 35.5 g/dL LAB HEMATOLOGY METHOD 07/13/2024 3:42 AM EDT [facility] RDW 13.7 11.5 - 14.5 % LAB HEMATOLOGY METHOD 07/13/2024 3:42 AM EDT [facility] MPV 9.4 8.8 - 12.5 fL LAB HEMATOLOGY METHOD 07/13/2024 3:42 AM EDT [facility] nRBC 0.0 <=0.0 per 100 WBCs LAB HEMATOLOGY METHOD 07/13/2024 3:42 AM EDT [facility] Differential Type Automated LAB HEMATOLOGY METHOD 07/13/2024 3:42 AM EDT [facility] Neutrophils % 69 % LAB HEMATOLOGY METHOD 07/13/2024 3:42 AM EDT [facility] Lymphocytes % 12 % LAB HEMATOLOGY METHOD 07/13/2024 3:42 AM EDT [facility] Monocytes % 15 % LAB HEMATOLOGY METHOD 07/13/2024 3:42 AM EDT [facility] Eosinophils % 2 % LAB HEMATOLOGY METHOD 07/13/2024 3:42 AM EDT [facility] Basophils % 1 % LAB HEMATOLOGY METHOD 07/13/2024 3:42 AM EDT [facility] Immature Granulocytes % 1 % LAB HEMATOLOGY METHOD 07/13/2024 3:42 AM EDT [facility] Neutrophils Absolute 4.02 1.60 - 6.10 10*3/uL LAB HEMATOLOGY METHOD 07/13/2024 3:42 AM EDT [facility] Lymphocytes Absolute 0.66(L) 1.20 - 3.90 10*3/uL LAB HEMATOLOGY METHOD 07/13/2024 3:42 AM EDT [facility] Monocytes Absolute 0.85 0.30 - 0.90 10*3/uL LAB HEMATOLOGY METHOD 07/13/2024 3:42 AM EDT [facility] Eosinophils Absolute 0.11 0.00 - 0.50 10*3/uL LAB HEMATOLOGY METHOD 07/13/2024 3:42 AM EDT [facility] Basophils Absolute 0.08 0.00 - 0.10 10*3/uL LAB HEMATOLOGY METHOD 07/13/2024 3:42 AM EDT [facility] Immature Granulocytes Absolute 0.03 0.00 - 0.06 10*3/uL LAB HEMATOLOGY METHOD 07/13/2024 3:42 AM EDT [facility] Blood Venous blood specimen / Unknown Venipuncture / Unknown 07/13/2024 3:09 AM EDT 07/13/2024 3:37 AM EDT Narrative [facility] - 07/13/2024 3:42 AM EDT Therapeutic decision making should be based on absolute values, rather than percentages. us Deejay Schneider MD LAB BLOOD ORDERABLES Final Res ult [facility] [address] [place] [address] * (ABNORMAL) Prothrombin Time/INR (07/13/2024 3:09 AM EDT) Prothrombin Time 27.8(H) 12.0 - 14.3 sec 07/13/2024 4:01 AM EDT [facility] INR 2.6(H) 0.9 - 1.1 07/13/2024 4:01 AM EDT [facility] Blood Venous blood specimen / Unknown Venipuncture / Unknown 07/13/2024 3:09 AM EDT 07/13/2024 3:37 AM EDT Narrative [facility] - 07/13/2024 4:01 AM EDT OPTIMAL INR RANGES FOR PATIENT ON ORAL ANTICOAGULANT THERAPY Prevention of venous thromboembolism INR 2.0 to 3.0 In patients with heart disease: Atrial fibrillation INR 2.0 to 3.0 Valvular heart disease INR 2.0 to 3.0 Tissue heart valves INR 2.0 to 3.0 Mechanical prosthetic valves INR 2.5 to 3.5 Prevention of recurrent [place] INR 2.5 to 3.5 us Deejay Schneider MD LAB BLOOD ORDERABLES Final Res ult Performing Organization Address City/State/[facility] Co de Phone Number [facility] [address] [place] [address] * (ABNORMAL) POCT glucose meter (07/13/2024 1:02 AM EDT) [facility] POCT Glucose 281(H) 74 - 99 mg/dL 07/13/2024 1:06 AM EDT [facility] Comment:Accuracy of a glucos e result obtained from a capillary whole blood specimen relies upon adequate, non-compromised capillary blood flow. If the capillary glucose result is not consistent with the patient's clinical signs and symptoms, glucose testing should be repeated with either an arterial or venous sample on the glucometer or sent to the main labortory for testing. Comment 07/13/2024 1:06 AM EDT [facility] Drilling Fluids Specialist ID Sabrina Fields 025 1:06 AM EDT [facility] Device ID [id number] 07/13/2024 1:06 AM EDT [facility] Specimen Type POC Capillary 07/13/2024 1:06 AM EDT [facility] Blood Capillary blood specimen / Unknown 07/13/2024 1:02 AM EDT 07/13/2024 1:06 AM EDT us Rajiv Mann MD LAB POINT OF CARE TE ST DOCKED DEVICE UNSOLICITED RESULTS Final Result Performing Organization Address City/State/[facility] de Phone Number [facility] [address] [place] [address] * (ABNORMAL) POCT glucose meter (07/12/2024 10:14 PM EDT) [facility] POCT Glucose 303(H) 74 - 99 mg/dL 07/12/2024 10:16 PM EDT [facility] Comment:Accuracy of a glucos e result obtained from a capillary whole blood specimen relies upon adequate, non-compromised capillary blood flow. If the capillary glucose result is not consistent with the patient's clinical signs and symptoms, glucose testing should be repeated with either an arterial or venous sample on the glucometer or sent to the main labortory for testing. Comment 07/12/2024 10:16 PM EDT [facility] Drilling Fluids Specialist ID Sergio Schreiber 07/12/2024 10:16 PM EDT [facility]ALTH[facility] LAB Device ID [id number] 07/12/2024 10:16 PM EDT [facility] Specimen Type POC Capillary 07/12/2024 10:16 PM EDT [facility] Blood Capillary blood specimen / Unknown 07/12/2024 10:14 PM EDT 07/12/2024 10:16 PM EDT Rajiv Mann MD LAB POINT OF CARE TE ST DOCKED DEVICE UNSOLICITED RESULTS Final Result Performing Organization Address [facility] de Phone Number [facility] [address] [place] [address] * (ABNORMAL) POCT glucose meter (07/12/2024 8:30 PM EDT) [facility] POCT Glucose 382(H) 74 - 99 mg/dL 07/12/2024 8:31 PM EDT [facility] Comment:Accuracy of a glucos e result obtained from a capillary whole blood specimen relies upon adequate, non-compromised capillary blood flow. If the capillary glucose result is not consistent with the patient's clinical signs and symptoms, glucose testing should be repeated with either an arterial or venous sample on the glucometer or sent to the main labortory for testing. Comment 07/12/2024 8:31 PM EDT [facility] Drilling Fluids Specialist ID Sergio Schreiber 07/12/2024 8:31 PM EDT [facility] LAB Device ID [id number] 07/12/2024 8:31 PM EDT [facility] Specimen Type POC Capillary 07/12/2024 8:31 PM EDT [facility] Blood Capillary blood specimen / Unknown 07/12/2024 8:30 PM EDT 07/12/2024 8:31 PM EDT us Rajiv Mann MD LAB POINT OF CARE TE ST DOCKED DEVICE UNSOLICITED RESULTS Final Result Performing Organization Address City/[facility]/ZIP Co de Phone Number [facility] [address] [place] [address] * Urinalysis Microscopic Examination (07/12/2024 7:27 PM EDT) Urine Urine specimen obtained by clean catch procedure / Unknown Non-blood Collection / Unknown 07/12/2024 7:27 PM EDT 07/12/2024 7:31 PM EDT us Deejay Schneider MD LAB URINE ORDERABLES Final Res ult Performing Organization Address City/[facility]/ZIP Co de Phone Number [facility] [address] [place] [address] * (ABNORMAL) Urinalysis with reflex microscopic (Culture NOT Included) (07/12/2024 7:27 PM EDT) Color, Urine Yellow LAB URINALYSIS - AUTOMATED METHOD 07/12/2024 8:10 PM EDT [facility] Clarity, Urine Clear LAB URINALYSIS - AUTOMATED METHOD 07/12/2024 8:10 PM EDT [facility] Spec Rueter, Urine 1.009 1.005 - 1.030 LAB URINALYSIS - AUTOMATED METHOD 07/12/2024 8:10 PM EDT [facility] pH, Urine 6.5 5.0 - 8.0 LAB URINALYSIS - AUTOMATED METHOD 07/12/2024 8:10 PM EDT [facility] Protein, Urine 30(A) Negative mg/dL LAB URINALYSIS - AUTOMATED METHOD 07/12/2024 8:10 PM EDT [facility] Glucose, Urine Negative Negative mg/dL LAB URINALYSIS - AUTOMATED METHOD 07/12/2024 8:10 PM EDT [facility] Ketones, Urine Negative Negative mg/dL LAB URINALYSIS - AUTOMATED METHOD 07/12/2024 8:10 PM EDT [facility] Blood, Urine Moderate(A) Negative LAB URINALYSIS - AUTOMATED METHOD 07/12/2024 8:10 PM EDT [facility] Bilirubin, Urine Negative Negative LAB URINALYSIS - AUTOMATED METHOD 07/12/2024 8:10 PM EDT [facility] Urobilinogen, Urine 0.2 0.2 to 1.0 mg/dL LAB URINALYSIS - AUTOMATED METHOD 07/12/2024 8:10 PM EDT [facility] Leukocytes, Urine Negative Negative LAB URINALYSIS - AUTOMATED METHOD 07/12/2024 8:10 PM EDT [facility] Nitrite, Urine Negative Negative LAB URINALYSIS - AUTOMATED METHOD 07/12/2024 8:10 PM EDT [facility] RBC, Urine 4 - 10(A) 0 to 3 /HPF LAB URINALYSIS - AUTOMATED METHOD 07/12/2024 8:10 PM EDT [facility] Comment:This result was prev iously suppressed from the chart. WBC, Urine 0 - 5 0 to 5 /HPF LAB URINALYSIS - AUTOMATED METHOD 07/12/2024 8:10 PM EDT [facility] Comment:This result was prev iously suppressed from the chart. Squamous Epithelial Cells 0 - 2 0 to 5 /HPF LAB URINALYSIS - AUTOMATED METHOD 07/12/2024 8:10 PM EDT [facility] Comment:This result was prev iously suppressed from the chart. Hyaline Casts 0 - 2 0 to 5 /LPF LAB URINALYSIS - AUTOMATED METHOD 07/12/2024 8:10 PM EDT [facility] Comment:This result was prev iously suppressed from the chart. Bacteria, Urine Negative Negative LAB URINALYSIS - AUTOMATED METHOD 07/12/2024 8:10 PM EDT [facility] Comment:This result was prev iously suppressed from the chart. Urine Urine specimen obtained by clean catch procedure / Unknown Non-blood Collection / Unknown 07/12/2024 7:27 PM EDT 07/12/2024 7:31 PM EDT us Deejay Schneider MD LAB URINE ORDERABLES Final Res ult [facility] [address] [place] [address] * Epps (ASHLEY) Antibody, IgG (07/12/2024 4:46 PM EDT) Epps (ASHLEY) Antibody, IgG 8 0 - 40 AU/mL 07/15/2024 4:15 PM EDT [facility] ([facility]) Serum 07/12/2024 4:46 PM EDT 07/12/2024 5:06 PM EDT Narrative [facility] ([facility]) - 07/15/2024 4:15 PM EDT INTERPRETIVE INFORMATION: Epps (ASHLEY) Antibody, IgG 29 AU/mL or Less ............. Negative 30 - 40 AU/mL ................ Equivocal 41 AU/mL or Greater .......... Positive Epps antibody is highly specific (greater than 90 percent) for systemic lupus erythematosus (SLE) but only occurs in 30-35 percent of SLE cases. The presence of antibodies to Epps has variable associations with SLE clinical manifestations. Performed By: [facility] [address] [place] [address] Hyperbaric Nurse: Austin Bernal MD, PhD CLIA Number: [id number] Deejay Schneider MD LAB REF LAB BLOOD AND FLUID OR D Final Result [facility] [employer]) [address] [place] [address] * Complement, total (07/12/2024 4:46 PM EDT) Pathologist [facility] [place] Complement Activity, Total Turbidimetric 74.8 38.7 - 89.9 U/mL 07/14/2024 11:25 PM EDT [facility] ([facility]) Blood Venous blood specimen / Unknown Venipuncture / Unknown 07/12/2024 4:46 PM EDT 07/12/2024 5:07 PM EDT Narrative [facility]) - 07/14/2024 11:25 PM EDT REFERENCE INTERVAL: Complement Activity Total, (CH50) 38.6 U/mL or less ..........Low 38.7-89.9 U/mL .............Normal 90.0 U/mL or greater .......High Normal activity in total complement functional assay (CH50) suggests normal presence and function of complement components, C1-C9. However, normal CH50 result can also occur in the presence of low levels of complement components due to excess presence of complement proteins in human serum. If clinically indicated, measurement of individual complement components is recommended. Normal CH50 result with low complement alternate pathway functional (AH50, test code 5110014) activity suggests defects in the alternate pathway. Performed By: [facility] [address] [place] [address] Hyperbaric Nurse: Austin Bernal MD, PhD CLIA Number: [id number] us Deejay Schneider MD LAB BLOOD ORDERABLES Final Res ult [facility] ([place]) [address] [place] [address] * C4 complement (07/12/2024 4:46 PM EDT) C4 Complement 19 13 - 36 mg/dL 07/12/2024 5:50 PM EDT [facility] Blood Venous blood specimen / Unknown Venipuncture / Unknown 07/12/2024 4:46 PM EDT 07/12/2024 5:18 PM EDT Deejay Schneider MD LAB BLOOD ORDERABLES Final Res ult [facility] [address] [place] [address] * C3 complement (07/12/2024 4:46 PM EDT) C3 Complement 124 84 - 166 mg/dL 07/12/2024 5:50 PM EDT [facility] Blood Venous blood specimen / Unknown Venipuncture / Unknown 07/12/2024 4:46 PM EDT 07/12/2024 5:18 PM EDT us Deejay Schneider MD LAB BLOOD ORDERABLES Final Res ult [facility] [address] [place] [address] * Anti-DNA antibody, double-stranded (07/12/2024 3:24 PM EDT) Double-Strande d DNA (dsDNA) Ab IgG IFA <1:10 <1:10 07/15/2024 3:21 PM EDT [facility] ([facility]) Blood Venous blood specimen / Unknown Venipuncture / Unknown 07/12/2024 3:24 PM EDT 07/12/2024 3:50 PM EDT Narrative [facility] ([facility]) - 07/15/2024 3:21 PM EDT INTERPRETIVE INFORMATION: Double-Stranded DNA (dsDNA) Antibody, IgG by IFA (using Crithidia luciliae) Positivity for anti-double stranded DNA (anti-dsDNA) IgG antibody is a diagnostic criterion of systemic lupus erythematosus (SLE). The presence of the anti-dsDNA IgG antibody is identified by IFA titer (Crithidia luciliae indirect fluorescent test [SAHRA]). SAHRA is highly specific for SLE with a sensitivity of 50-60 percent. Some patients with early or inactive SLE may be positive for anti-dsDNA IgG by BENTLEY but negative by SAHRA. If the SAHRA result is negative but the patient has a positive BENTLEY and clinical suspicion remains, consider antinuclear antibody (MOON) testing by IFA. Additional information and recommendations for testing may be found at [email or web address]. Performed By: [facility] [address] [place] [id number] Hyperbaric Nurse: Austin Bernal MD, PhD CLIA Number: [id number] us Yanet Duff MD LAB BLOOD ORDERABLES Final Re sult [facility] ([facility]) [address] [place] [address] * (ABNORMAL) Protime-INR (07/12/2024 3:24 PM EDT) Prothrombin Time 29.4(H) 12.0 - 14.3 sec 07/12/2024 4:03 PM EDT [facility] INR 2.8(H) 0.9 - 1.1 07/12/2024 4:03 PM EDT [facility] Blood Venous blood specimen / Unknown Venipuncture / Unknown 07/12/2024 3:24 PM EDT 07/12/2024 3:43 PM EDT Narrative [facility] - 07/12/2024 4:03 PM EDT OPTIMAL INR RANGES FOR PATIENT ON ORAL ANTICOAGULANT THERAPY Prevention of venous thromboembolism INR 2.0 to 3.0 In patients with heart disease: Atrial fibrillation INR 2.0 to 3.0 Valvular heart disease INR 2.0 to 3.0 Tissue heart valves INR 2.0 to 3.0 Mechanical prosthetic valves INR 2.5 to 3.5 Prevention of recurrent [place] INR 2.5 to 3.5 us Yanet Duff MD LAB BLOOD ORDERABLES Final Re sult [facility] [address] [place] [address] * (ABNORMAL) Troponin T, High Sensitivity, 2 Hour, Plasma (07/12/2024 3:24 PM EDT) Pathologist [facility] [place] Troponin T, High Sensitivity, 2 Hour 24(H) <14 ng/L 07/12/2024 4:10 PM EDT [facility] Troponin Delta 4 <10 ng/L 07/12/2024 4:10 PM EDT [facility] Troponin Delta Interpretation Not Significant 07/12/2024 4:10 PM EDT [facility] Comment:Not Significant. No acute change in troponin observed between the baseline and 2 hour samples. Blood Venous blood specimen / Unknown Venipuncture / Unknown 07/12/2024 3:24 PM EDT 07/12/2024 3:43 PM EDT Yanet Duff MD LAB BLOOD ORDERABLES Final Re sult Performing Organization Address [facility]/ZIP Co de Phone Number [facility] [address] [place] [address] * (ABNORMAL) C-reactive protein (07/12/2024 1:11 PM EDT) CRP, Plasma 8.7(H) <=8.0 mg/L 07/12/2024 4:06 PM EDT [facility] Blood Venous blood specimen / Unknown Venipuncture / Unknown 07/12/2024 1:11 PM EDT 07/12/2024 1:22 PM EDT Narrative [facility] - 07/12/2024 4:06 PM EDT This CRP test is appropriate for assessment of infection, systemic inflammation and/or tissue injury. To assess cardiovascular disease risk order high sensitivity CRP (CRPH). Yanet Duff MD LAB BLOOD ORDERABLES Final Re sult Performing Organization Address [facility] [place] [address] * (ABNORMAL) LDH, Lactate dehydrogenase (07/12/2024 1:11 PM EDT) Pathologist [facility] [place] LDH, Plasma 357(H) 116 - 250 U/L 07/12/2024 4:06 PM EDT [facility] Blood Venous blood specimen / Unknown Venipuncture / Unknown 07/12/2024 1:11 PM EDT 07/12/2024 1:22 PM EDT Yanet Duff MD LAB BLOOD ORDERABLES Final Re sult Performing Organization Address City/[facility]/ZIP Co de Phone Number [facility] [address] [place] [address] * (ABNORMAL) BNP (07/12/2024 1:11 PM EDT) N-Terminal, PROBNP, Plasma 4,670(H) 0 - 899 pg/mL 07/12/2024 1:58 PM EDT [facility] Blood Venous blood specimen / Unknown Venipuncture / Unknown 07/12/2024 1:11 PM EDT 07/12/2024 1:22 PM EDT us Yanet Duff MD LAB BLOOD ORDERABLES Final Re sult Performing Organization Address [facility]/ZIP Co de Phone Number [facility] [address] [place] [address] * (ABNORMAL) Troponin now and 120 min (07/12/2024 1:11 PM EDT) Troponin T, High Sensitivity, 0 Hour 28(H) <14 ng/L 07/12/2024 1:58 PM EDT [facility] Blood Venous blood specimen / Unknown Venipuncture / Unknown 07/12/2024 1:11 PM EDT 07/12/2024 1:22 PM EDT us Yanet Duff MD LAB BLOOD ORDERABLES Final Re sult Performing Organization Address City/[facility]/ZIP Co de Phone Number [facility] [address] [place] [address] * (ABNORMAL) CBC w/diff (07/12/2024 1:11 PM EDT) WBC Count 6.65 3.70 - 10.30 10*3/uL LAB HEMATOLOGY METHOD 07/12/2024 1:26 PM EDT [facility] RBC Count 3.86(L) 3.90 - 5.20 10*6/uL LAB HEMATOLOGY METHOD 07/12/2024 1:26 PM EDT [facility] HGB 11.5 11.2 - 15.7 g/dL LAB HEMATOLOGY METHOD 07/12/2024 1:26 PM EDT [facility] HCT 35.5 34.0 - 45.0 % LAB HEMATOLOGY METHOD 07/12/2024 1:26 PM EDT [facility] Platelet Count 414(H) 155 - 369 10*3/uL LAB HEMATOLOGY METHOD 07/12/2024 1:26 PM EDT [facility] MCV 92 79 - 98 fL LAB HEMATOLOGY METHOD 07/12/2024 1:26 PM EDT [facility] MCH 29.8 26.0 - 32.0 pg LAB HEMATOLOGY METHOD 07/12/2024 1:26 PM EDT [facility] MCHC 32.4 30.7 - 35.5 g/dL LAB HEMATOLOGY METHOD 07/12/2024 1:26 PM EDT [facility] RDW 14.2 11.5 - 14.5 % LAB HEMATOLOGY METHOD 07/12/2024 1:26 PM EDT [facility] MPV 9.4 8.8 - 12.5 fL LAB HEMATOLOGY METHOD 07/12/2024 1:26 PM EDT [facility] nRBC 0.0 <=0.0 per 100 WBCs LAB HEMATOLOGY METHOD 07/12/2024 1:26 PM EDT [facility] Differential Type Automated LAB HEMATOLOGY METHOD 07/12/2024 1:26 PM EDT [facility] Neutrophils % 74 % LAB HEMATOLOGY METHOD 07/12/2024 1:26 PM EDT [facility] Lymphocytes % 13 % LAB HEMATOLOGY METHOD 07/12/2024 1:26 PM EDT [facility] Monocytes % 10 % LAB HEMATOLOGY METHOD 07/12/2024 1:26 PM EDT [facility] Eosinophils % 1 % LAB HEMATOLOGY METHOD 07/12/2024 1:26 PM EDT [facility] Basophils % 1 % LAB HEMATOLOGY METHOD 07/12/2024 1:26 PM EDT [facility] Immature Granulocytes % 1 % LAB HEMATOLOGY METHOD 07/12/2024 1:26 PM EDT [facility] Neutrophils Absolute 4.94 1.60 - 6.10 10*3/uL LAB HEMATOLOGY METHOD 07/12/2024 1:26 PM EDT [facility] Lymphocytes Absolute 0.84(L) 1.20 - 3.90 10*3/uL LAB HEMATOLOGY METHOD 07/12/2024 1:26 PM EDT [facility] Monocytes Absolute 0.68 0.30 - 0.90 10*3/uL LAB HEMATOLOGY METHOD 07/12/2024 1:26 PM EDT [facility] Eosinophils Absolute 0.08 0.00 - 0.50 10*3/uL LAB HEMATOLOGY METHOD 07/12/2024 1:26 PM EDT [facility] Basophils Absolute 0.06 0.00 - 0.10 10*3/uL LAB HEMATOLOGY METHOD 07/12/2024 1:26 PM EDT [facility] Immature Granulocytes Absolute 0.05 0.00 - 0.06 10*3/uL LAB HEMATOLOGY METHOD 07/12/2024 1:26 PM EDT [facility] Blood Venous blood specimen / Unknown Venipuncture / Unknown 07/12/2024 1:11 PM EDT 07/12/2024 1:22 PM EDT Narrative [facility] - 07/12/2024 1:26 PM EDT Therapeutic decision making should be based on absolute values, rather than percentages. us Yanet Duff MD LAB BLOOD ORDERABLES Final Re sult [facility] [address] [place] [address] * (ABNORMAL) BMP (07/12/2024 1:11 PM EDT) Glucose, Plasma 228(H) 74 - 99 mg/dL 07/12/2024 1:58 PM EDT [facility] BUN, Plasma 16 8 - 23 mg/dL 07/12/2024 1:58 PM EDT [facility] Creatinine, Plasma 0.92 0.60 - 1.10 mg/dL 07/12/2024 1:58 PM EDT [facility] BUN/Creatinine Ratio 17 07/12/2024 1:58 PM EDT [facility] Sodium, Plasma 132(L) 136 - 145 mmol/L 07/12/2024 1:58 PM EDT [facility] Potassium, Plasma 3.3(L) 3.6 - 4.9 mmol/L 07/12/2024 1:58 PM EDT [facility] Chloride, Plasma 90(L) 97 - 107 mmol/L 07/12/2024 1:58 PM EDT [facility] CO2, Plasma 27 22 - 29 mmol/L 07/12/2024 1:58 PM EDT [facility] Anion Gap 15 6 - 16 mmol/L 07/12/2024 1:58 PM EDT [facility] Total Calcium, Plasma 8.8(L) 8.9 - 10.2 mg/dL 07/12/2024 1:58 PM EDT [facility] eGFRcr 65.9 mL/min/1.7 3m*2 07/12/2024 1:58 PM EDT [facility] Comment:Reported eGFRcr in m L/min/1.73m2 is based the CKD-EPI 2020 equation that does not use a race coefficient. Blood Venous blood specimen / Unknown Venipuncture / Unknown 07/12/2024 1:11 PM EDT 07/12/2024 1:22 PM EDT us Yanet Duff MD LAB BLOOD ORDERABLES Final Re sult Performing Organization Address City/[facility]/ZIP Co de Phone Number [facility] [address] [place] [address] * EKG now - STAT (adult) (07/12/2024 12:30 PM EDT) EKG DIAGNOSIS CLASS Abnormal MUSE ECG Ventricular Rate 70 BPM MUSE ECG Atrial Rate 100 BPM MUSE ECG QRSD Interval 194 ms MUSE ECG QT Interval 526 ms MUSE ECG QTC Interval 568 ms MUSE ECG R [place] -78 degrees MUSE ECG T Wave [place] 107 degrees MUSE ECG Diagnosis Ventricular-p aced rhythm MUSE ECG Diagnosis Abnormal ECG MUSE ECG Diagnosis MUSE ECG Diagnosis Confirmed by Chris Dacosta ([id number]) on 07/12/2024 6:47:08 PM MUSE ECG 07/12/2024 12:3 0 PM EDT 07/12/2024 6:47 PM EDT us Jarvis Sanz MD ECG ORDERABLES Final Result MUSE ECG documented in this encounter Visit Diagnoses Diagnosis Acute on chronic hypoxic respiratory failure- Primary Acute hypoxic respiratory failure Pleural effusion Unspecified pleural effusion LV (left ventricular) mural thrombus Acute myocardial infarction, unspecified site, episode of care unspecified Acute on chronic heart failure with preserved ejection fraction (CMS/HCC) documented in this encounter Admitting Diagnoses Diagnosis Acute on chronic hypoxic respiratory failure documented in this encounter Administered Medications Inactive Administered Medications - up to 3 most recent administrations Medication Order MAR Action Action Date Dose Rate Site acetaminophen (Tylenol) tablet 1,000 mg 1,000 mg, Oral, Every 6 hours PRN, Starting on Fri07/12/24 at 1616, Until Fri07/15/24 at 1900, Routine, mild pain Given 07/15/2024 9:53 AM EDT 1,000 mg brimonidine (AlphaGAN P) 0.2 % ophthalmic solution 1 drop 1 drop, Both Eyes, Daily, First dose on Fri07/12/24 at 1620, Until Discontinued, Routine Given 07/14/2024 9:15 AM EDT 1 drop Given 07/12/2024 8:53 PM EDT 1 drop brimonidine (AlphaGAN P) 0.2 % ophthalmic solution 1 drop 1 drop, Both Eyes, Nightly, First dose (after last modification) on Fri07/15/24 at 2100, Until Discontinued, Routine busPIRone (Buspar) tablet 10 mg 10 mg, Oral, 2 times daily, First dose on Fri07/12/24 at 2100, Until Discontinued, Routine Given 07/15/2024 9:43 AM EDT 10 mg Given 07/14/2024 8:35 PM EDT 10 mg Given 07/14/2024 8:46 AM EDT 10 mg dextrose 50 % solution 12.5 g 12.5 g, Intravenous, Every 15 min PRN, Starting on Fri07/12/24 at 1825, Until Fri07/15/24 at 1900, Routine, low blood sugar Given 07/13/2024 9:22 PM EDT 12. 5 g DULoxetine (Cymbalta) DR capsule 80 mg 80 mg, Oral, Every morning, First dose on Fri07/13/24 at 0600, Until Discontinued, Routine Given 07/15/2024 6:10 AM EDT 80 mg Given 07/14/2024 5:42 AM EDT 80 mg Given 07/13/2024 5:38 AM EDT 80 mg ezetimibe (Zetia) tablet 10 mg 10 mg, Oral, Nightly, First dose on Fri07/12/24 at 2100, Until Discontinued, Routine Given 07/14/2024 8:35 PM EDT 10 mg Given 07/13/2024 9:13 PM EDT 10 mg Given 07/12/2024 9:39 PM EDT 10 mg furosemide (Lasix) injection 60 mg 60 mg, Intravenous, Once, 1 dose, On Fri07/12/24 at 1615, Routine Given 07/12/2024 5:02 PM EDT 60 mg furosemide (Lasix) injection 60 mg 60 mg, Intravenous, Once, 1 dose, On Fri07/13/24 at 1500, Routine Given 07/13/2024 3:05 PM EDT 60 mg furosemide (Lasix) injection 60 mg 60 mg, Intravenous, Once, 1 dose, On Fri07/14/24 at 1200, Routine Given 07/14/2024 11:12 AM EDT 60 mg gabapentin (Neurontin) capsule 300 mg 300 mg, Oral, 3 times daily, First dose on Fri07/12/24 at 2135, Until Discontinued, Routine Given 07/12/2024 9:39 PM EDT 300 mg gabapentin (Neurontin) capsule 300 mg 300 mg, Oral, Every morning, First dose (after last modification) on Fri07/13/24 at 0600, Until Discontinued, Routine Given 07/15/2024 6:11 AM EDT 300 mg Given 07/14/2024 5:42 AM EDT 300 mg Given 07/13/2024 5:38 AM EDT 300 mg gabapentin (Neurontin) capsule 300 mg 300 mg, Oral, Once, 1 dose, On Fri07/12/24 at 2200, Routine Given 07/12/2024 10:06 PM EDT 300 mg gabapentin (Neurontin) capsule 300 mg 300 mg, Oral, Once, 1 dose, On Fri07/14/24 at 2315, Routine Given 07/14/2024 10:26 PM EDT 300 mg gabapentin (Neurontin) capsule 600 mg 600 mg, Oral, Nightly, First dose on Fri07/12/24 at 2145, Until Discontinued, Routine Given 07/14/2024 8:33 PM E DT 600 mg Given 07/13/2024 8:16 PM EDT 300 mg glucagon (human recombinant) injection 1 mg 1 mg, Intramuscular, Every 15 min PRN, Starting on Fri07/12/24 at 1825, Until Fri07/15/24 at 1900, Routine, low blood sugar per Hypoglycemia Prevention and Treatment protocol glucose (Glutose) 40 % oral gel 15 grams of glucose 15 grams of glucose, Sublingual, Every 15 min PRN, Starting on Fri07/12/24 at 1825, Until Fri07/15/24 at 1900, Routine, low blood sugar, per Hypoglycemia Prevention and Treatment protocol hydroxychloroquine (Plaquenil) tablet 200 mg 200 mg, Oral, Daily, First dose on Fri07/14/24 at 1415, Until Discontinued, Routine Given 07/14/2024 1:43 PM EDT 200 mg hydroxychloroquine (Plaquenil) tablet 200 mg 200 mg, Oral, Nightly, First dose (after last modification) on Fri07/15/24 at 2100, Until Discontinued, Routine insulin glargine-yfgn 100 UNIT/ML injection 13 Units 13 Units, Subcutaneous, Nightly, First dose on Fri07/12/24 at 2100, Until Discontinued, Routine Given 07/14/2024 8:33 PM EDT 13 Units Left Lower Abdomen Given 07/13/2024 8:16 PM EDT 13 Units Le ft Lower Abdomen Given 07/12/2024 8:58 PM EDT 13 Units Le ft Lower Abdomen insulin lispro (Admelog) 100 units/mL injection - Correction - Standard Dose 0-5 Units, Subcutaneous, 3 times daily with meals, First dose on Fri07/12/24 at 1830, Until Discontinued, Routine Given 07/14/2024 12:45 PM EDT 1 Units Left Lower Abdomen Given 07/13/2024 5:49 PM EDT 1 Units Le ft Upper Abdomen Given 07/13/2024 12:32 PM EDT 1 Units L eft Lower Abdomen insulin lispro (Admelog) injection - Correction - Nighttime Dose 0-3 Units, Subcutaneous, 2 times nightly (2099 & 0), First dose on Fri07/12/24 at 2100, Until Discontinued, Routine Given 07/12/2024 8:56 PM EDT 3 Units Right Lower Abdomen Insulin Lispro (Admelog, HumaLOG) 100 UNIT/ML injection 3 Units 3 Units, Subcutaneous, 3 times daily with meals, First dose on Fri07/12/24 at 1830, Until Discontinued, Routine Given 07/15/2024 9:44 AM EDT 3 Units Left Lower Abdomen Given 07/14/2024 12:45 PM EDT 3 Units L eft Lower Abdomen Given 07/13/2024 5:50 PM EDT 3 Units Le ft Upper Abdomen iohexol (OMNIPaque) 350 MG/ML injection 80 mL 80 mL, Intravenous, Once in imaging, 1 dose, Starting on Fri07/13/24 at 1002, Until Fri07/13/24 at 1011, Routine, Imaging Protocol Orders Given 07/13/2024 10:11 AM EDT 80 mL latanoprost (Xalatan) 0.005 % ophthalmic solution 1 drop 1 drop, Both Eyes, Nightly, First dose on Fri07/14/24 at 2100, Until Discontinued, Routine Given 07/14/2024 8:36 PM EDT 1 drop levothyroxine (Synthroid, Levoxyl) tablet 125 mcg 125 mcg, Oral, Daily before breakfast, First dose on Fri07/13/24 at 0730, Until Discontinued, Routine Given 07/15/2024 9:44 AM EDT 125 mcg Given 07/14/2024 6:30 AM EDT 125 mcg Given 07/13/2024 8:05 AM EDT 125 mcg magnesium oxide (Mag-Ox) tablet 400 mg 400 mg, Oral, Daily, First dose on Fri07/14/24 at 0900, Until Discontinued, Routine Given 07/15/2024 9:43 AM EDT 400 mg Given 07/14/2024 8:46 AM EDT 400 mg mometasone-formoterol (Dulera 100) 100-5 MCG/ACT inhaler 2 puff 2 puff, Inhalation, 2 times daily, First dose on Fri07/12/24 at 2100, Until Discontinued Given 07/15/2024 9:50 AM EDT 2 puffs Given 07/14/2024 8:37 PM EDT 2 puffs Given 07/14/2024 8:46 AM EDT 2 puffs mupirocin (Bactroban) 2 % ointment 1 Application Each Nostril, 2 times daily, 10 doses, First dose on Fri07/14/24 at 0900, Last dose on Fri07/18/24 at 2100, Routine Given 07/15/2024 9:43 AM EDT 1 Ap plication Given 07/14/2024 8:36 PM EDT 1 Application Given 07/14/2024 8:46 AM EDT 1 Application mycophenolate (Cellcept) capsule 1,500 mg 1,500 mg, Oral, 2 times daily, First dose on Fri07/12/24 at 2100, Until Discontinued Given 07/15/2024 9:47 AM EDT 1,500 mg Given 07/14/2024 8:35 PM EDT 1,500 mg Given 07/14/2024 8:46 AM EDT 1,500 mg perflutren lipid microspheres (Definity) injection 4.1076 mg 4.1076 mg (10 mcL/kg 63 kg), Intravenous, Once in imaging, 1 dose, Starting on Fri07/15/24 at 1538, Until Fri07/15/24 at 1358, Routine Given 07/15/2024 1:58 PM EDT 4.1076 mg polyethylene glycol (Miralax) packet 17 g 17 g, Oral, Daily PRN, Starting on Fri07/14/24 at 1049, Until Fri07/15/24 at 1900, Routine, constipation potassium chloride (Klor-Con) packet 40 mEq 40 mEq, Oral, Once, 1 dose, On Fri07/14/24 at 0845, Routine Given 07/14/2024 8:46 AM EDT 40 mEq potassium chloride CR (Klor-Con) ER tablet 40 mEq 40 mEq, Oral, Every 2 hours, 2 doses, First dose on Fri07/13/24 at 0725, Last dose on Fri07/13/24 at 0925, Routine Given 07/13/2024 11:16 AM EDT 40 mEq Given 07/13/2024 8:05 AM EDT 40 mEq potassium chloride CR (Klor-Con) ER tablet 40 mEq 40 mEq, Oral, Once, 1 dose, On Fri07/13/24 at 1605, Routine Given 07/13/2024 4:03 PM EDT 40 mEq senna (Senokot) tablet 8.6 mg 8.6 mg, Oral, Nightly PRN, Starting on Fri07/14/24 at 1049, Until Fri07/15/24 at 1900, Routine, constipation sodium chloride 0.9 % flush 10 mL 10 mL, Intravenous, Every 12 hours, First dose on Fri07/12/24 at 1610, Until Discontinued, Routine Given 07/15/2024 4:11 AM EDT 10 mL Given 07/14/2024 3:27 PM EDT 10 mL Given 07/14/2024 3:10 AM EDT 10 mL sodium chloride 0.9 % flush 10 mL 10 mL, Intravenous, As needed, Starting on Fri07/12/24 at 1604, Until Fri07/15/24 at 1900, Routine, line care spironolactone (Aldactone) tablet 12.5 mg 12.5 mg, Oral, Daily, First dose on Fri07/13/24 at 1445, Until Discontinued, Routine Given 07/15/2024 9:44 AM EDT 12.5 mg Given 07/14/2024 9:03 AM EDT 12.5 mg Given 07/13/2024 3:37 PM EDT 12.5 mg Tiotropium Roosevelt Monohydrate (Spiriva Respimat) 2.5 MCG/ACT inhaler 2 puff 2 puff, Inhalation, Daily, First dose on Fri07/12/24 at 1620, Until Discontinued Given 07/15/2024 9:50 AM EDT 2 puffs Given 07/14/2024 8:08 AM EDT 2 puffs Given 07/13/2024 8:08 AM EDT 2 puffs warfarin (Coumadin) tablet 5 mg 5 mg, Oral, Once, 1 dose, On Fri07/15/24 at 1330, Routine Given 07/15/2024 12:49 PM EDT 5 mg documented in this encounter Active and Recently Administered Medications Times are shown in EDT. Scheduled Medication Order 07/13/2024 07/14/2024 07/15/2024 brimonidine (AlphaGAN P) 0.2 % ophthalmic solution 1 drop (CANCELED) 1 drop, Both Eyes, Daily, First dose on Fri07/12/24 at 1620, Until Discontinued, Routine 0807 (Not Given - Provider: Lupis Barajas RN - Reason: Patient/family refused) 0915 (Given - Provider: Todd Jacobs RN) 0950 (Not Given - Provider: Britt Rosenthal RN - Reason: Patient/family refused - Comment: only at night) brimonidine (AlphaGAN P) 0.2 % ophthalmic solution 1 drop 1 drop, Both Eyes, Nightly, First dose (after last modification) on Fri07/15/24 at 2100, Until Discontinued, Routine busPIRone (Buspar) tablet 10 mg 10 mg, Oral, 2 times daily, First dose on Fri07/12/24 at 2100, Until Discontinued, Routine 08 (Given - Provider: Lupis Barajas, EVITA)2015 (Given - Provider: Florentino Smith) 0846 (Given - Provider: Todd Jacobs, EVITA)2034 (Given - Provider: Zee Peter) 09 (Given - Provider: Britt Rosenthal RN) DULoxetine (Cymbalta) DR capsule 80 mg 80 mg, Oral, Every morning, First dose on Fri07/13/24 at 0600, Until Discontinued, Routine 0538 (Given - Provider: Jeni Suarez RN) 0542 (Given - Provider: Florentino Smith) 0610 (Given - Provider: Zee Peter) ezetimibe (Zetia) tablet 10 mg 10 mg, Oral, Nightly, First dose on Fri07/12/24 at 2100, Until Discontinued, Routine 2112 (Given - Provider: Florentino Smith) 2034 (Given - Provider: Zee Peter) furosemide (Lasix) injection 60 mg (COMPLETED) 60 mg, Intravenous, Once, 1 dose, On Fri07/13/24 at 1500, Routine 1505 (Given - Provider: Lupis Barajas RN) furosemide (Lasix) injection 60 mg (COMPLETED) 60 mg, Intravenous, Once, 1 dose, On Fri07/14/24 at 1200, Routine 1112 (Given - Provider: Todd Jacbos, EVITA) gabapentin (Neurontin) capsule 300 mg 300 mg, Oral, Every morning, First dose (after last modification) on Fri07/13/24 at 0600, Until Discontinued, Routine 0538 (Given - Provider: Jeni Suarez RN) 0542 (Given - Provider: Florentino Smith) 0611 (Given - Provider: Zee Peter) gabapentin (Neurontin) capsule 300 mg (COMPLETED) 300 mg, Oral, Once, 1 dose, On Fri07/14/24 at 2315, Routine 2226 (Given - Provider: Zee Peter) gabapentin (Neurontin) capsule 600 mg 600 mg, Oral, Nightly, First dose on Fri07/12/24 at 2145, Until Discontinued, Routine 2015 (Given - Provider: Florentino Smith) 2032 (Given - Provider: Zee Peter) hydroxychloroquine (Plaquenil) tablet 200 mg (CANCELED) 200 mg, Oral, Daily, First dose on Fri07/14/24 at 1415, Until Discontinued, Routine 1343 (Given - Provider: Todd Jacobs RN) 0944 (Not Given - Provider: Britt Rosenthal RN - Reason: Patient/family refused - Comment: pt takes this at night) hydroxychloroquine (Plaquenil) tablet 200 mg 200 mg, Oral, Nightly, First dose (after last modification) on Fri07/15/24 at 2100, Until Discontinued, Routine insulin glargine-yfgn 100 UNIT/ML injection 13 Units 13 Units, Subcutaneous, Nightly, First dose on Fri07/12/24 at 2100, Until Discontinued, Routine 2015 (Given - Provider: Florentino Smith) 2032 (Given - Provider: Zee Peter) insulin lispro (Admelog) 100 units/mL injection - Correction - Standard Dose 0-5 Units, Subcutaneous, 3 times daily with meals, First dose on Fri07/12/24 at 1830, Until Discontinued, Routine 0808 (Given - Provider: Lupis Barajas RN)1232 (Given - Provider: Lpuis Barajas, EVITA)1749 (Given - Provider: Lupis Barajas, EVITA) 0842 (Not Given - Provider: Todd Jacobs RN - Reason: NPO)1245 (Given - Provider: Todd Jacobs RN)1650 (Not Given - Provider: Todd Jacobs RN - Reason: Patient/family refused - Comment: didn't eat dinner, refused insulin) 0905 (Not Given - Provider: Britt Rosenthal RN - Reason: Order parameters not met - Comment: [phone] (Not Given - Provider: Britt Rosenthal RN - Reason: Order parameters not met - Comment: [phone] (Canceled Entry - Provider: Automatic Discharge Provider - Comment: Automatically canceled at discontinue of medication order) insulin lispro (Admelog) injection - Correction - Nighttime Dose 0-3 Units, Subcutaneous, 2 times nightly (2100 & 0300), First dose on Fri07/12/24 at 2100, Until Discontinued, Routine 0419 (Not Given - Provider: Jeni Suarez RN - Reason: Order parameters not met - Comment: [phone] (Not Given - Provider: Florentino Smith - Reason: Order parameters not met - Comment: [phone] 203 (Not Given - Provider: Florentino Smith - Reason: Order parameters not met - Comment: [phone] (Not Given - Provider: Zee Peter - Reason: Order parameters not met - Comment: [phone] 220 (Not Given - Provider: Zee Peter - Reason: Order parameters not met - Comment: 210) Insulin Lispro (Admelog, HumaLOG) 100 UNIT/ML injection 3 Units 3 Units, Subcutaneous, 3 times daily with meals, First dose on Fri07/12/24 at 1830, Until Discontinued, Routine 0807 (Given - Provider: Lupis Barajas RN)1231 (Given - Provider: Lupis Barajas RN)1750 (Given - Provider: Lupis Barajas RN) 0854 (Not Given - Provider: Todd Jacobs RN - Reason: NPO)1245 (Given - Provider: Todd Jacobs RN)1650 (Not Given - Provider: Todd Jacobs RN - Reason: Patient/family refused - Comment: didn't eat dinner. refused insulin) 0944 (Given - Provider: Britt Rosenthal, EVITA)1202 (Not Given - Provider: Britt Rosenthal RN - Reason: Order parameters not met - Comment: [phone] (Canceled Entry - Provider: Automatic Discharge Provider - Comment: Automatically canceled at discontinue of medication order) iohexol (OMNIPaque) 350 MG/ML injection 80 mL (COMPLETED) 80 mL, Intravenous, Once in imaging, 1 dose, Starting on Fri07/13/24 at 1002, Until Fri07/13/24 at 1011, Routine, Imaging Protocol Orders 1011 (Given - Provider: Yue Gordon) latanoprost (Xalatan) 0.005 % ophthalmic solution 1 drop 1 drop, Both Eyes, Nightly, First dose on Fri07/14/24 at 2100, Until Discontinued, Routine 2036 (Given - Provider: Zee Peter) levothyroxine (Synthroid, Levoxyl) tablet 125 mcg 125 mcg, Oral, Daily before breakfast, First dose on Fri07/13/24 at 0730, Until Discontinued, Routine 08 (Given - Provider: Lupis Barajas RN) 06 (Given - Provider: Florentino Smith) 0944 (Given - Provider: Britt Rosenthal, EVITA) magnesium oxide (Mag-Ox) tablet 400 mg 400 mg, Oral, Daily, First dose on Fri07/14/24 at 0900, Until Discontinued, Routine 08 (Given - Provider: Todd Jacobs RN) 0943 (Given - Provider: Britt Rosenthal, EVITA) mometasone-formoterol (Dulera 100) 100-5 MCG/ACT inhaler 2 puff(Linked Group 1) 2 puff, Inhalation, 2 times daily, First dose on Fri07/12/24 at 2100, Until Discontinued 805 (Given - Provider: Lupis Barajas RN)2112 (Given - Provider: Florentino Smith) 0846 (Given - Provider: Todd Jacobs, EVITA)2036 (Given - Provider: Zee Peter) 0950 (Given - Provider: Britt Rosenthal, EVITA) mupirocin (Bactroban) 2 % ointment 1 Application Each Nostril, 2 times daily, 10 doses, First dose on Fri07/14/24 at 0900, Last dose on Fri07/18/24 at 2100, Routine 0846 (Given - Provider: Todd Jacobs RN)2035 (Given - Provider: Zee Peter) 0943 (Given - Provider: Britt Rosenthal, EVITA) mycophenolate (Cellcept) capsule 1,500 mg 1,500 mg, Oral, 2 times daily, First dose on Fri07/12/24 at 2100, Until Discontinued 804 (Given - Provider: Lupis Barajas RN)2015 (Given - Provider: Florentino Smith) 0846 (Given - Provider: oTdd Jacobs RN)2034 (Given - Provider: Zee Peter) 0947 (Given - Provider: Britt Rosenthal, EVITA) perflutren lipid microspheres (Definity) injection 4.1076 mg (COMPLETED) 4.1076 mg (10 mcL/kg 63 kg), Intravenous, Once in imaging, 1 dose, Starting on Fri07/15/24 at 1538, Until Fri07/15/24 at 1358, Routine 1358 (Given - Provid er: Odessa Briones RDCS) potassium chloride (Klor-Con) packet 40 mEq (COMPLETED) 40 mEq, Oral, Once, 1 dose, On Fri07/14/24 at 0845, Routine 0846 (Given - Provider: Todd Jacobs RN) potassium chloride CR (Klor-Con) ER tablet 40 mEq (COMPLETED) 40 mEq, Oral, Every 2 hours, 2 doses, First dose on Fri07/13/24 at 0725, Last dose on Fri07/13/24 at 0925, Routine 0805 (Given - Provider: Lupis Barajas RN)1116 (Given - Provider: Lupis Barajas RN) potassium chloride CR (Klor-Con) ER tablet 40 mEq (COMPLETED) 40 mEq, Oral, Once, 1 dose, On Fri07/13/24 at 1605, Routine 1603 (Given - Provider: Lupis Barajas RN) sodium chloride 0.9 % flush 10 mL(Linked Group 2) 10 mL, Intravenous, Every 12 hours, First dose on Fri07/12/24 at 1610, Until Discontinued, Routine 0538 (Given - Provider: Jeni Suarez RN)1537 (Given - Provider: Lupis Barajas RN) 0310 (Given - Provider: Florentino Smith)1527 (Given - Provider: Todd Jacobs RN) 0411 (Given - Provider: Zee Peter)1624 (Not Given - Provider: Britt Rosenthal, EVITA - Reason: Loss of IV access) spironolactone (Aldactone) tablet 12.5 mg 12.5 mg, Oral, Daily, First dose on Fri07/13/24 at 1445, Until Discontinued, Routine 1537 (Given - Provider: Lupis Barajas RN) 0903 (Given - Provider: Todd Jacobs RN) 0944 (Given - Provider: Britt Rosenthal RN) Tiotropium Roosevelt Monohydrate (Spiriva Respimat) 2.5 MCG/ACT inhaler 2 puff(Linked Group 1) 2 puff, Inhalation, Daily, First dose on Fri07/12/24 at 1620, Until Discontinued 0808 (Given - Provider: Lupis Barajas RN) 0808 (Given - Provider: Todd Jacobs RN) 0950 (Given - Provider: Britt Rosenthal RN) warfarin (Coumadin) tablet 5 mg (COMPLETED) 5 mg, Oral, Once, 1 dose, On Lurdes 07/15/24 at 1330, Routine 1249 (Given - Provid er: Britt Rosenthal RN) PRN Medication Order 07/13/2024 07/14/2024 07/15/2024 acetaminophen (Tylenol) tablet 1,000 mg 1,000 mg, Oral, Every 6 hours PRN, Starting on Fri07/12/24 at 1616, Until Lurdes 07/15/24 at 1900, Routine, mild pain 0953 (Given - Provid er: Britt Rosenthal RN) dextrose 50 % solution 12.5 g(Linked Group 3) 12.5 g, Intravenous, Every 15 min PRN, Starting on Fri07/12/24 at 1825, Until Fri07/15/24 at 1900, Routine, low blood sugar 2121 (Given - Provider: Florentino Smith) glucagon (human recombinant) injection 1 mg(Linked Group 3) 1 mg, Intramuscular, Every 15 min PRN, Starting on Fri07/12/24 at 1825, Until Lurdes 07/15/24 at 1900, Routine, low blood sugar per Hypoglycemia Prevention and Treatment protocol 2121 (See Alternative - Provider: Florentino Smith) glucose (Glutose) 40 % oral gel 15 grams of glucose(Linked Group 3) 15 grams of glucose, Sublingual, Every 15 min PRN, Starting on Fri07/12/24 at 1825, Until Lurdes 07/15/24 at 1900, Routine, low blood sugar, per Hypoglycemia Prevention and Treatment protocol 2121 (See Alternative - Provider: Florentino Smith) polyethylene glycol (Miralax) packet 17 g 17 g, Oral, Daily PRN, Starting on Fri07/14/24 at 1049, Until Lurdes 07/15/24 at 1900, Routine, constipation senna (Senokot) tablet 8.6 mg 8.6 mg, Oral, Nightly PRN, Starting on Fri07/14/24 at 1049, Until Fri07/15/24 at 1900, Routine, constipation sodium chloride 0.9 % flush 10 mL(Linked Group 2) 10 mL, Intravenous, As needed, Starting on Fri07/12/24 at 1604, Until Fri07/15/24 at 1900, Routine, line care Linked Groups Order Group 1: Tiotropium Roosevelt Monohydrate (Spiriva Respimat) 2.5 MCG/ACT inhaler 2 puffJump to med 2 puff, Inhalation, Daily, First dose on Fri07/12/24 at 1620, Until Discontinued And mometasone-formoterol (Dulera 100) 100-5 MCG/ACT inhaler 2 puffJump to med 2 puff, Inhalation, 2 times daily, First dose on Fri07/12/24 at 2100, Until Discontinued Group 2: Insert peripheral IV (CANCELED) Once, On Fri07/12/24 at 1605, For 1 occurrence And Saline lock IV (CANCELED) Once, On Fri07/12/24 at 1605, For 1 occurrence And sodium chloride 0.9 % flush 10 mLJump to med 10 mL, Intravenous, Every 12 hours, First dose on Fri07/12/24 at 1610, Until Discontinued, Routine And sodium chloride 0.9 % flush 10 mLJump to med 10 mL, Intravenous, As needed, Starting on Fri07/12/24 at 1604, Until Fri07/15/24 at 1900, Routine, line care Group 3: glucose (Glutose) 40 % oral gel 15 grams of glucoseJump to med 15 grams of glucose, Sublingual, Every 15 min PRN, Starting on Fri07/12/24 at 1825, Until Fri07/15/24 at 1900, Routine, low blood sugar, per Hypoglycemia Prevention and Treatment protocol Or dextrose 50 % solution 12.5 gJump to med 12.5 g, Intravenous, Every 15 min PRN, Starting on Fri07/12/24 at 1825, Until Fri07/15/24 at 1900, Routine, low blood sugar Or glucagon (human recombinant) injection 1 mgJump to med 1 mg, Intramuscular, Every 15 min PRN, Starting on 07/12/24 at 1825, Until Lurdes 07/15/24 at 1900, Routine, low blood sugar per Hypoglycemia Prevention and Treatment protocol documented in this encounter Additional Health Concerns Assessment Noted Time PHQ-9 Depression Total Score: 0 06/02/19 1:21 PM EDT A fall risk assessment has been complete d for the patient 07/08/2024 1:00 PM EDT A Body Mass Index follow-up plan has been documented for the patient 07/15/2024 2:13 PM EDT documented as of this encounter Care Teams Senior Mobile Solutions Architect Relationship Specialty Start Date End Date Alisa Kunz DO [address] [place] [phone] PCP - General Internal Medicine 03/13/21 Kodi Bustos DO [address] [phone] Surgeon Cardiothoracic Surgery 11/06/22 Sujit Arriola MD [address] [place] [phone] Consulting Physician Pulmonary Disease 11/06/22 Sujit Reyes MD [address] [place] [phone] Referring Physician 12/04/22 Ekaterina Gómez Shipping Manager Machine Pecan Picker 07/14/24 07/14/24 documented as of this encounter
--- OUTSIDE RECORDS SUMMARY | 2024-07-20 09:40 | XMS_ITS | Encounter Summary ---
Author Organization Healthcare Address [address] [place] [address] Care Team Providers Care [facility] Manager Name Role Phone Alisa Kunz Primary Care Provider [phone] Kodi Bustos DO Unavailable [phone] Sujit Arriola MD Unavailable [phone] Sujit Reyes MD Unavailable [phone] Zully Caldwell LPN Unavailable Unavailable Reason for Visit * Reason Comments Follow-up Encounter Details Date Type Department Care Team (Late st Contact Info) Description 07/20/2024 9:40 AM EDT Office Visit [facility] [address] [place] [address] Ashley, June, SHADOWGRAPH OPERATOR [facility] [address] [place] [address] Acute on chronic hypoxic respiratory failure (Primary Dx); Anticoagulated on Coumadin; Healthcare maintenance Social History Tobacco Use Types Packs/Day Years Used Date Smoking Tobacco: Never Passive Smoke Exposure: Past Smokeless Tobacco: Never Tobacco Cessation:Counseling Given: No Passive Exposure Comments:2nd hand smoke Alcohol Use [...] How often do you attend chur or congregational services? 1 to 4 times per year 08/30/2022 Do you belong to any clubs o r organizations such as sabianist groups, unions, fraternal or athletic groups, or [...] Recorded Patient Health Questionnaire-2 Score 0 07/21/2024 [facility] Occupat ional Health - Occupational Stress [...] place to sleep or slept in a correction (including now)? No 12/30/2023 PHQ-9 Answer Date [...] any time in the past 12 m [facility], were you homeless or living in a correction (including now)? No 05/27/2024 CAGE ASSESSMENT Answer [...] drink first t anselmo in the morning (EYE-POWER BALLAST MACHINE OPERATOR) to steady your nerves or to get rid of a hangover? 0 07/12/2024 CAGE Questionnaire Score 0 025 Utilities Answer Date Recorded In the past 12 months has th e gAuto, gas, oil, or water Gociety threatened to shut off services in your [...] Sign Reading Time Taken Comments Blood Pressure 110/69 07/20/2024 9:58 AM EDT Pulse 67 07/20/2024 9:58 AM EDT Temperature 36.9 C (98.4 F) 07/20/2024 9:41 AM EDT Respiratory Rate 18 07/20/2024 9:41 AM EDT Oxygen Saturation 91% 07/20/2024 9:41 AM EDT on 3 L NC Inhaled Oxygen Concentration - - Weight - - Height - - Body Mass Index - - documented in this encounter Miscellaneous Notes * Clinician Note - Mary Costello RN - 07/20/2024 9:40 AM EDT Patient at risk for fall. the following intervention (s) implemented:, Oriented patient/family to exam room, Patient unaccompanied - Left door open, Exam room clear of fall hazards, Placed patient inchair with arms, Patient instructed not to sit on exam table without staff present, and Rounding onpatient to be completed every 15 mins. Pt sitting in wheelchair that is locked and pt's sitter/caregiver at pt's side during clinic visit. * Patient Instructions - Dinah Ramirez APRN - 07/20/2024 9:40 AM EDT At this time, please decrease your spironolactone to 6.25mg daily (1/4 a pill of a 25mg pill). Go immediately to the ER with any chest pain/palpitations/shortness of breath, seizure like activity, or stroke like symptoms (for example but not limited to: slurred speech, dizziness, one sided weakness, altered gait, facial droop, sudden terrible headache or worst headache of life) * Progress Notes - Dinah Ramirez APRN - 07/20/2024 9:40 AM EDT Transitional Care Management Progress Note: Tmjr-mc-Yrxx Visit Patient: Michelle Felipe : 1950 PCP: Alisa Kunz DO Subjective Michelle Felipe is a 74 y.o. female presenting today for follow-up after being discharged from the hospital 5 days ago. The main problem requiring admission was acute respiratory failure. The discharge summary and/or Transitional Care Management documentation was reviewed. Medication reconciliation was performed as indicated via the Bryon as Reviewed timestamp. Michelle Felipe was contacted by Transitional Care Management services two days after her discharge. This encounter and supporting documentation was reviewed. The complexity of medical decision making for this patient's transitional care is moderate. HPI Recent hospitalization (paraphrased): Admit Date/Time: 07/12/2024 Discharge Date: 07/15/2024 Michelle Felipe is a 74 y.o. female [...] no response to outpatient Lasix trial with [employer] -Hx labs, physical exam not suggestive of [...] day of discharge; largely stable from prior -Lasix 40 mg daily -Continue spironolactone 25 [...] follow up scheduled -Continue Cellcept and hydroxychloroquine Hypothyroidism: Continue levothyroxine DM: Continue glargine 13 u nightly + 3 units w/ meals + sliding scale HLD: Continue ezetimibe Depression/Anxiety: Continue Cymbalta and buspar Procedures Thoracentesis Patient presents to high risk discharge clinic today for transition of care appointment/hospital follow-up: Today Ms. Felipe reports she is feeling better. States she does not have anymore shortness of breath. Reports last time she had a thoracentesis she felt like she filled right back up, this time she does not feel that way. Denies chest pain. Reports dizziness believes secondary to starting spironolactone of note she took 25 mg of spironolactone when she was supposed to take 12.5mg. Her blood pressure on that day was 80/40. Since then shehas been taking 12.5 mg/half a tablet. Reports she still feels dizzy when standing and sitting negative orthostatics today. Discussed trialing 6.25 mg of spironolactone versus 12.5 mg every other daypatient agreeable to 6.25 daily we will discuss this with Cardiology at next appointment. Has been attempting to get into her investment associate at [facility] sooner, without success. We will reach out to see if we can facilitate this. Coumadin clinic at [facility]. Checks her own INR at home, however has not done it today as she has difficulty doing this asked for check of INR here, we will order. Establish with Internal Medicine, next appointment 09/08/24 Review of Systems: Review of Systems Constitutional: Positive for appetite change (started while inpatient) and fatigue (chronic). Negative for activity change, chills and fever. HENT: Negative for congestion, rhinorrhea and sore throat. Respiratory: Positive for cough (yellow sputum, not new). Negative for shortness of breath. Cardiovascular: Negative for chest pain, palpitations and leg swelling. Gastrointestinal: Positive for constipation (last bm yesterday). Negative for abdominal pain, bloodin stool, diarrhea, nausea and vomiting. Genitourinary: Negative for difficulty urinating, dysuria and hematuria. Musculoskeletal: Positive for arthralgias (neck, shoulders, back secondary to walker use). Negativefor back pain and myalgias. Reports tight and stiff neck, no fever, ROM normal Skin: Negative for rash and wound. Neurological: Positive for dizziness (when standing/sitting, like pass out ), weakness (globalized, HH involved) and headaches (neck pain leading into headaches, intermittent). Negative for numbness. Psychiatric/Behavioral: Negative for suicidal ideas. The patient is not nervous/anxious. Past Medical History: Medical History[1] Past Surgical History: Surgical History[2] Family History: Family History[3] Objective Physical Exam Constitutional: General: She is not in acute distress. Appearance: Normal appearance. She is not ill-appearing, toxic-appearing or diaphoretic. Comments: 3 L nasal cannula, baseline, presents in wheelchair HENT: Head: Normocephalic. Cardiovascular: Rate and Rhythm: Normal rate and regular rhythm. Pulses: Normal pulses. Heart sounds: Normal heart sounds. Pulmonary: Effort: Pulmonary effort is normal. No respiratory distress. Breath sounds: No stridor. Decreased breath sounds (Globalized) present. No wheezing or rhonchi. Abdominal: General: Bowel sounds are normal. Palpations: Abdomen is soft. Tenderness: There is no abdominal tenderness. Musculoskeletal: General: Normal range of motion. Skin: General: Skin is warm. Capillary Refill: Capillary refill takes less than 2 seconds. Neurological: Mental Status: She is alert and oriented to person, place, and time. Psychiatric: Mood and Affect: Mood normal. Behavior: Behavior normal. Thought Content: Thought content normal. Judgment: Judgment normal. Assessment/Plan Diagnoses and all orders for this visit: Acute on chronic hypoxic respiratory failure/chronic pleural effusion/dizzy -presented to ER on 07/12/2024 with complaints of worsening shortness of breath x1 week secondary to chronic pleural effusion -effusion present since 2020 failed Lasix trial, started on spironolactone -concern for possible lupus flare, no lab evidence -improved after diuresis and thoracentesis removing 900 mL -reports feeling improved since discharge, no shortness of breath -taking spironolactone 12.5 mg daily, however 1 day she did not realize to cut this in half so took25 and had a blood pressure of 80/40 -reports intermittent dizziness when sitting or standing like she is going to ???pass out?? - Orthostatics- negative -discussed decreasing spironolactone to 6.5 mg daily, agreeable, we will follow up with Cardiology scheduled for both 08/04/2024 and 08/09/2024 ( and [facility] providers) - Comprehensive metabolic panel; Future - CBC; Future -Educated patient on strict return to ER guidelines including: Chest pain, shortness of breath, stroke-like symptoms Anticoagulated on Coumadin -followed by [facility] -checks INR at home usually on Tuesdays, -INR; Future -requests INR check with labs today, ordered Healthcare maintenance -established with Internal Medicine was next appointment 09/08/2024 Follow up appointments: Rheumatology 07/21/2024, cardiology with [facility] 08/04/2024, endocrinology 08/04/2024, cardiology [facility] 08/09/2024, IM with established PCP 09/08/24, [facility] cardiology 10/01/2024, Internal Medicine 11/29/24, [facility] cardiology 12/02/2024, [facility] cardiology 01/19/2025 Note to patient: The Century Cures Act makes medical notes like these available to patients inthe interest of transparency. However, be advised this is a medical document. It is intended as peer to peer communication. It is written in medical language and may contain abbreviations or verbiagethat are unfamiliar. It may appear blunt or direct. Medical documents are intended to carry relevant information, facts as evident, and the clinical opinion of the practitioner. Dinah Ramirez, SHADOWGRAPH OPERATOR 07/20/2024 9:55 AM [1] Past Medical History: Diagnosis Date 2018-nCoV acute respiratory disease 05/07/2022 Alcohol use Allergic 1973 Anemia Anxiety Arthritis Asthma Cellulitis 02/13/2024 Cellulitis of right leg 02/12/2024 CHF (congestive heart failure) ([facility]) Chronic respiratory failure 2019 Clotting disorder ([facility]) Congenital malformation COPD (chronic obstructive pulmonary disease) ([facility]) 2018 Coronary artery disease CTS (carpal tunnel syndrome) Dental disease Depression Diabetes mellitus type I ([facility]) Disease of thyroid gland Eczema Fracture of left proximal fibula 04/09/2021 - Left proximal fibula fracture on 02/2021 after a mechanical fall. - Established with orthopedic surgery, no surgical intervention, WBAT. Heart disease Hepatitis B 1960 HL (hearing loss) Hypertension Hyperthyroidism 1960 Hypothyroidism 1960 Infectious viral hepatitis Myocardial infarction ([facility]/HCC) Peripheral neuropathy Pneumonia 06/01 Post-menopausal bleeding 05/08/2021 - Isolated episode of vaginal spotting in early 2021, no recurrence. Was evaluated with OBGYN in 10/2021, no intervention at this time, if recurrence of bleeding will likely require endometrial biopsy. 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 Scleritis. - Needs [facility] eye exam. - Was ableto get patient [...] CARDIAC PACEMAKER PLACEMENT N/A Pacemaker Placement from [employer] CARPAL TUNNEL RELEASE N/A Neuroplasty Decompression Median Nerve At Carpal Tunnel from [employer] CERVICAL BIOPSY W/ LOOP ELECTRODE EXCISION 2010 SECTION, CLASSIC 1976, 1979 SECTION, LOW TRANSVERSE N/A Section from [employer] COLONOSCOPY N/A Complete Colonoscopy from [employer] CORONARY ARTERY BYPASS GRAFT N/A CABG from [employer] EYE SURGERY N/A Eye Surgery from [employer] FRACTURE SURGERY SPINE SURGERY THORACENTESIS TOE SURGERY Left 02/07/2024 hematoma removal of upper skin on L big toe TONSILLECTOMY N/A Tonsillectomy from [employer] [3] Family History Problem Relation Name Age of Onset Conversions - Other Mother cindi stamper alfredito kelin Goiter (Diffuse Nontoxic) Heart disease Mother cindi stamper alfredito kelin Hypertension Mother cindi stamper alfredito kelin Stroke Mother cindi stamper alfredito kelin COPD Mother cindi stamper alfredito kelin Alpha-1 antitrypsin deficiency Mother cindi stamper alfredito kelin Arthritis Father Doron Arriaza Alfredito Hypercholesterolemia Father Doron Arriaza Alfredito Obesity Father Doron E [place] COPD Father Doron E [place] Alcohol abuse Father Doron E Alfredito Diabetes Sibling Cancer Other Doron E Alfredito Conversions - Other Other Goiter (Diffuse Nontoxic) Heart disease Other Cindi Marry Stamper Alfredito Kelin documented in this encounter Plan of Treatment Upcoming Encounters Date Type Department Care Team (Late st Contact Info) Description 09/08/2024 11:20 AM EDT Office Visit [facility] Internal Medicine [address] [place] [address] Alisa Kunz, [address] [place] [address] 10/07/2024 4:00 PM EDT Appointment Cardiac Imaging [address] [place] [address] 10/14/2024 4:00 PM EDT Office Visit [facility] Medicine Specialties [address] [place] [address] Lavern Shoemaker MD [address] [place], [place] [id number] 10/27/2024 1:40 PM EDT Office Visit Janette Su[facility] Endocrinology [address] [place] [phone] Anne-Marie Kolb, SHADOWGRAPH OPERATOR [address] [facility] [address] [place] [phone] 11/29/2024 10:20 AM EDT Office Visit [facility] Internal Medicine [address] [place] [address] Alisa Kunz L, DO [address] [place] [phone] 02/02/2025 10:30 AM EST Office Visit [facility] Medicine Specialties [address] [place] [address] Sadiq Osborne MBBS [address] [place], [place] [id number] Scheduled Orders Name Type Priority Associated Diagnoses Orde r Schedule Orthostatic vs; No; Manual release only; Reasonable likelihood of causing patient harm - Miscellaneous Test Lab Routine Acute on chronic hypoxic respiratory failure Expected: 07/20/2024 (Approximate), Expires: 01/20/2026 documented as of this encounter Results * (ABNORMAL) CBC (07/20/2024 11:28 AM EDT) WBC Count 6.46 3.70 - 10.30 10*3/uL LAB HEMATOLOGY METHOD 07/20/2024 2:04 PM EDT [facility] RBC Count 3.67(L) 3.90 - 5.20 10*6/uL LAB HEMATOLOGY METHOD 07/20/2024 2:04 PM EDT [facility] HGB 11.1(L) 11.2 - 15.7 g/dL LAB HEMATOLOGY METHOD 07/20/2024 2:04 PM EDT [facility] HCT 34.2 34.0 - 45.0 % LAB HEMATOLOGY METHOD 07/20/2024 2:04 PM EDT [facility] Platelet Count 465(H) 155 - 369 10*3/uL LAB HEMATOLOGY METHOD 07/20/2024 2:04 PM EDT [facility] MCV 93 79 - 98 fL LAB HEMATOLOGY METHOD 07/20/2024 2:04 PM EDT [facility] MCH 30.2 26.0 - 32.0 pg LAB HEMATOLOGY METHOD 07/20/2024 2:04 PM EDT [facility] MCHC 32.5 30.7 - 35.5 g/dL LAB HEMATOLOGY METHOD 07/20/2024 2:04 PM EDT [facility] RDW 14.2 11.5 - 14.5 % LAB HEMATOLOGY METHOD 07/20/2024 2:04 PM EDT [facility] MPV 10.0 8.8 - 12.5 fL LAB HEMATOLOGY METHOD 07/20/2024 2:04 PM EDT [facility] nRBC 0.0 <=0.0 per 100 WBCs LAB HEMATOLOGY METHOD 07/20/2024 2:04 PM EDT [facility] Blood Venous blood specimen / Unknown Venipuncture / Unknown 07/20/2024 11:28 AM EDT 07/20/2024 11:29 AM EDT June Ashley SHADOWGRAPH OPERATOR LAB BLOOD ORDERABLES Final Result [facility] [address] [place] [address] * (ABNORMAL) Comprehensive metabolic panel (07/20/2024 11:28 AM EDT) [facility] Glucose, Plasma 97 74 - 99 mg/dL 07/20/2024 2:48 PM EDT [facility] BUN, Plasma 15 8 - 23 mg/dL 07/20/2024 2:48 PM EDT [facility] Creatinine, Plasma 1.04 0.60 - 1.10 mg/dL 07/20/2024 2:48 PM EDT [facility] BUN/Creatinine Ratio 14 07/20/2024 2:48 PM EDT [facility] Sodium, Plasma 136 136 - 145 mmol/L 07/20/2024 2:48 PM EDT [facility] Potassium, Plasma 4.1 3.6 - 4.9 mmol/L 07/20/2024 2:48 PM EDT [facility] Chloride, Plasma 97 97 - 107 mmol/L 07/20/2024 2:48 PM EDT [facility] CO2, Plasma 27 22 - 29 mmol/L 07/20/2024 2:48 PM EDT [facility] Anion Gap 12 6 - 16 mmol/L 07/20/2024 2:48 PM EDT [facility] Total Calcium, Plasma 9.2 8.9 - 10.2 mg/dL 07/20/2024 2:48 PM EDT [facility] Total Protein 7.3 6.3 - 7.9 g/dL 07/20/2024 2:48 PM EDT [facility] Albumin, Plasma 3.4(L) 3.5 - 5.2 g/dL 07/20/2024 2:48 PM EDT [facility] AST, Plasma 33 10 - 35 U/L 07/20/2024 2:48 PM EDT [facility] ALT, Plasma 21 10 - 35 U/L 07/20/2024 2:48 PM EDT [facility] Alkaline Phosphatase, Plasma 89 46 - 142 U/L 07/20/2024 2:48 PM EDT [facility] Total Bilirubin, Plasma 0.3 0.2 - 1.1 mg/dL 07/20/2024 2:48 PM EDT [facility] eGFRcr 56.9 mL/min/1.7 3m*2 07/20/2024 2:48 PM EDT [facility] Comment:Reported eGFRcr in m L/min/1.73m2 is based the CKD-EPI 2020 equation that does not use a race coefficient. Blood Venous blood specimen / Unknown Venipuncture / Unknown 07/20/2024 11:28 AM EDT 07/20/2024 11:29 AM EDT us June Ashley SHADOWGRAPH OPERATOR LAB BLOOD ORDERABLES Final Result Performing Organization Address [facility] de Phone Number [facility] [address] [place] [address] * (ABNORMAL) Protime-INR (07/20/2024 11:28 AM EDT) Prothrombin Time 24.7(H) 12.0 - 14.3 sec LAB COAGULATION METHOD 07/20/2024 3:56 PM EDT [facility] INR 2.2(H) 0.9 - 1.1 LAB COAGULATION METHOD 07/20/2024 3:56 PM EDT [facility] Blood Venous blood specimen / Unknown Venipuncture / Unknown 07/20/2024 11:28 AM EDT 07/20/2024 11:29 AM EDT Narrative [facility] - 07/20/2024 3:56 PM EDT OPTIMAL INR RANGES FOR PATIENT ON ORAL ANTICOAGULANT THERAPY Prevention of venous thromboembolism INR 2.0 to 3.0 In patients with heart disease: Atrial fibrillation INR 2.0 to 3.0 Valvular heart disease INR 2.0 to 3.0 Tissue heart valves INR 2.0 to 3.0 Mechanical prosthetic valves INR 2.5 to 3.5 Prevention of recurrent VT INR 2.5 to 3.5 us June Ashley SHADOWGRAPH OPERATOR LAB BLOOD ORDERABLES Final Result Performing Organization Address [facility] de Phone Number [facility] [address] [place] [address] documented in this encounter Visit Diagnoses Diagnosis Acute on chronic hypoxic respiratory failure- Primary Anticoagulated on Coumadin Healthcare maintenance documented in this encounter Additional Health Concerns Assessment Noted Time PHQ-9 Depression Total Score: 0 06/02/19 25 1:21 PM EDT A fall risk assessment has been complete d for the patient 07/20/2024 10:06 AM EDT A Body Mass Index follow-up plan has been documented for the patient 07/20/2024 10:27 AM EDT documented as of this encounter Care Teams Health Center Manager Relationship Specialty Start Date End Date Alisa Kunz DO [address] [place] [phone] PCP - General Internal Medicine 03/13/21 Kodi Bustos DO [address] [address] Surgeon Cardiothoracic Surgery 11/06/22 Sujit Arriola MD [address] [place] [phone] Consulting Physician Pulmonary Disease 11/06/22 Sujit Reyes MD [address] [place] [address] Referring Physician 12/04/22 Zully Caldwell LPN [employer] [place] [address] TCM Nurse 07/16/24 08/15/24 documented as of this encounter
--- OUTSIDE RECORDS SUMMARY | 2024-07-21 09:10 | XMS_ITS | Encounter Summary ---
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 ([facility]) Expected: 07/27/2024 (Approximate), Expires: 01/27/2026 Urinalysis with reflex microscopic (Culture NOT Included) Lab Routine Systemic lupus erythematosus (SLE) in adult ([facility]) Expected: 08/13/2024 (Approximate), Expires: 02/14/2026 Protein, Random, Urine with Creatinine Lab Routine Systemic lupus erythematosus (SLE) in adult ([facility]) Expected: 08/13/2024 (Approximate), Expires: 02/14/2026 documented as of this encounter Results * XR Chest 2 Views (07/21/2024 11:53 AM EDT) Anatomical Region Laterality Modality Chest Digital Radiogra phy Impressions 07/21/2024 1:52 PM EDT Stable small pleural effusions with associated atelectasis. CRITICAL RESULT: No. COMMUNICATION: Per this written report. Preliminary report signed by Delicia Emmanuel DO on 07/21/2024 1:42 PM By electronically signing this report, I, the attending physician, attest that I have personally reviewed the images/data for the above examination(s) and agree with the final edited report. Drafted by Delicia Emmanuel DO on 07/21/2024 1:40 PM Final report signed by Dominic Mcconnell MD on 07/21/2024 1:52 PM Narrative 07/21/2024 1:52 PM EDT CLINICAL INDICATION: shortness of breath TECHNIQUE: XR CHEST 2 VIEWS COMPARISON: July 15, 2024. FINDINGS: Stable support hardware. Stable mediastinal contours and enlarged cardiac silhouette. Stable small pleural effusions with associated basilar atelectasis. No pneumothorax. Procedure Note Dominic Mcconnell MD - 07/21/2024 CLINICAL INDICATION: shortness of breath TECHNIQUE: XR CHEST 2 VIEWS COMPARISON: July 15, 2024. FINDINGS: Stable support hardware. Stable mediastinal contours and enlarged cardiacsilhouette. Stable small pleural effusions with associated basilaratelectasis. No pneumothorax. IMPRESSION: Stable small pleural effusions with associated atelectasis. CRITICAL RESULT: No. COMMUNICATION: Per this written report. Preliminary report signed by Delicia Emmanuel DO on 07/21/2024 1:42 PM By electronically signing this report, I, the attending physician, attestthat I have personally reviewed the images/data for the aboveexamination(s) and agree with the final edited report. Drafted by Delicia Emmanuel DO on 07/21/2024 1:40 PM Final report signed by Dominic Mcconnell MD on 07/21/2024 1:52 PM us Fili Hutson MD IMG XR PROCEDURES Final Res ult * C-reactive protein (07/21/2024 11:18 AM EDT) CRP, Plasma 4.2 <=8.0 mg/L 07/21/2024 1:04 PM EDT [facility] Blood Venous blood specimen / Unknown Venipuncture / Unknown 07/21/2024 11:18 AM EDT 07/21/2024 11:19 AM EDT Narrative [facility] - 07/21/2024 1:04 PM EDT This CRP test is appropriate for assessment of infection, systemic inflammation and/or tissue injury. To assess cardiovascular disease risk order high sensitivity CRP (CRPH). us Fili Hutson MD LAB BLOOD ORDERABLES Final Result Performing Organization Address City/[facility]/ZIP Co de Phone Number [facility] [address] [place] [address] * (ABNORMAL) Sedimentation Rate, Automated (07/21/2024 11:18 AM EDT) Sedimentation Rate 31(H) <30 mm/hr 2024 1:06 PM EDT [facility] Blood Venous blood specimen / Unknown Venipuncture / Unknown 07/21/2024 11:18 AM EDT 07/21/2024 11:19 AM EDT Fili Hutson MD LAB BLOOD ORDERABLES Final Result Performing Organization Address City/[facility]/ZIP Co de Phone Number [facility] [address] [place] [address] * (ABNORMAL) Comprehensive metabolic panel (07/21/2024 11:18 AM EDT) Glucose, Plasma 326(H) 74 - 99 mg/dL 07/21/2024 1:04 PM EDT [facility] BUN, Plasma 18 8 - 23 mg/dL 07/21/2024 1:04 PM EDT [facility] Creatinine, Plasma 1.07 0.60 - 1.10 mg/dL 07/21/2024 1:04 PM EDT [facility] BUN/Creatinine Ratio 17 07/21/2024 1:04 PM EDT [facility] Sodium, Plasma 134(L) 136 - 145 mmol/L 07/21/2024 1:04 PM EDT [facility] Potassium, Plasma 4.1 3.6 - 4.9 mmol/L 07/21/2024 1:04 PM EDT [facility] Chloride, Plasma 94(L) 97 - 107 mmol/L 07/21/2024 1:04 PM EDT [facility] CO2, Plasma 26 22 - 29 mmol/L 07/21/2024 1:04 PM EDT [facility] Anion Gap 14 6 - 16 mmol/L 07/21/2024 1:04 PM EDT [facility] Total Calcium, Plasma 8.9 8.9 - 10.2 mg/dL 07/21/2024 1:04 PM EDT [facility] Total Protein 7.3 6.3 - 7.9 g/dL 07/21/2024 1:04 PM EDT [facility] Albumin, Plasma 3.4(L) 3.5 - 5.2 g/dL 07/21/2024 1:04 PM EDT [facility] AST, Plasma 30 10 - 35 U/L 07/21/2024 1:04 PM EDT [facility] ALT, Plasma 18 10 - 35 U/L 07/21/2024 1:04 PM EDT [facility] Alkaline Phosphatase, Plasma 100 46 - 142 U/L 07/21/2024 1:04 PM EDT [facility] Total Bilirubin, Plasma 0.3 0.2 - 1.1 mg/dL 07/21/2024 1:04 PM EDT [facility] eGFRcr 55.0 mL/min/1.7 3m*2 07/21/2024 1:04 PM EDT [facility] Comment:Reported eGFRcr in m L/min/1.73m2 is based the CKD-EPI 2020 equation that does not use a race coefficient. Blood Venous blood specimen / Unknown Venipuncture / Unknown 07/21/2024 11:18 AM EDT 07/21/2024 11:19 AM EDT us Fili Hutson MD LAB BLOOD ORDERABLES Final Result [facility] [address] [place] [address] * (ABNORMAL) CBC and differential (07/21/2024 11:18 AM EDT) WBC Count 7.62 3.70 - 10.30 10*3/uL LAB HEMATOLOGY METHOD 07/21/2024 12:50 PM EDT [facility] RBC Count 3.56(L) 3.90 - 5.20 10*6/uL LAB HEMATOLOGY METHOD 07/21/2024 12:50 PM EDT [facility] HGB 10.6(L) 11.2 - 15.7 g/dL LAB HEMATOLOGY METHOD 07/21/2024 12:50 PM EDT [facility] HCT 33.5(L) 34.0 - 45.0 % LAB HEMATOLOGY METHOD 07/21/2024 12:50 PM EDT [facility] Platelet Count 459(H) 155 - 369 10*3/uL LAB HEMATOLOGY METHOD 07/21/2024 12:50 PM EDT [facility] MCV 94 79 - 98 fL LAB HEMATOLOGY METHOD 07/21/2024 12:50 PM EDT [facility] MCH 29.8 26.0 - 32.0 pg LAB HEMATOLOGY METHOD 07/21/2024 12:50 PM EDT [facility] MCHC 31.6 30.7 - 35.5 g/dL LAB HEMATOLOGY METHOD 07/21/2024 12:50 PM EDT [facility] RDW 14.1 11.5 - 14.5 % LAB HEMATOLOGY METHOD 07/21/2024 12:50 PM EDT [facility] MPV 10.2 8.8 - 12.5 fL LAB HEMATOLOGY METHOD 07/21/2024 12:50 PM EDT [facility] nRBC 0.0 <=0.0 per 100 WBCs LAB HEMATOLOGY METHOD 07/21/2024 12:50 PM EDT [facility] Differential Type Automated LAB HEMATOLOGY METHOD 07/21/2024 12:50 PM EDT [facility] Neutrophils % 81 % LAB HEMATOLOGY METHOD 07/21/2024 12:50 PM EDT [facility] Lymphocytes % 9 % LAB HEMATOLOGY METHOD 07/21/2024 12:50 PM EDT [facility] Monocytes % 8 % LAB HEMATOLOGY METHOD 07/21/2024 12:50 PM EDT [facility] Eosinophils % 1 % LAB HEMATOLOGY METHOD 07/21/2024 12:50 PM EDT [facility] Basophils % 1 % LAB HEMATOLOGY METHOD 07/21/2024 12:50 PM EDT [facility] Immature Granulocytes % 0 % LAB HEMATOLOGY METHOD 07/21/2024 12:50 PM EDT [facility] Neutrophils Absolute 6.18(H) 1.60 - 6.10 10*3/uL LAB HEMATOLOGY METHOD 07/21/2024 12:50 PM EDT [facility] Lymphocytes Absolute 0.68(L) 1.20 - 3.90 10*3/uL LAB HEMATOLOGY METHOD 07/21/2024 12:50 PM EDT [facility] Monocytes Absolute 0.57 0.30 - 0.90 10*3/uL LAB HEMATOLOGY METHOD 07/21/2024 12:50 PM EDT [facility] Eosinophils Absolute 0.09 0.00 - 0.50 10*3/uL LAB HEMATOLOGY METHOD 07/21/2024 12:50 PM EDT [facility] Basophils Absolute 0.07 0.00 - 0.10 10*3/uL LAB HEMATOLOGY METHOD 07/21/2024 12:50 PM EDT [facility] Immature Granulocytes Absolute 0.03 0.00 - 0.06 10*3/uL LAB HEMATOLOGY METHOD 07/21/2024 12:50 PM EDT [facility] Blood Venous blood specimen / Unknown Venipuncture / Unknown 07/21/2024 11:18 AM EDT 07/21/2024 11:19 AM EDT Narrative [facility] - 07/21/2024 12:50 PM EDT Therapeutic decision making should be based on absolute values, rather than percentages. us Fili Hutson MD LAB BLOOD ORDERABLES Final Result [facility] [address] [place] [address] * Anti-DNA antibody, double-stranded (07/21/2024 11:18 AM EDT) Double-Strande d DNA (dsDNA) Ab IgG IFA <1:10 <1:10 07/24/2024 2:42 PM EDT [facility]) Blood Venous blood specimen / Unknown Venipuncture / Unknown 07/21/2024 11:18 AM EDT 07/21/2024 11:19 AM EDT Narrative [facility]) - 07/24/2024 2:42 PM EDT INTERPRETIVE INFORMATION: Double-Stranded DNA (dsDNA) [...] recommendations for testing may be found at https://[employer]fer[employer]/content/qcohskrcok-tuvcax-xvlycxdi. Performed By: [employer] [address] [place] [address] Gameplay Engineer: Austin Bernal MD, PhD CLIA Number: [id number] Fili Hutson MD LAB BLOOD ORDERABLES Final Result [facility]) [address] [place] [address] * C4 complement (07/21/2024 11:04 AM EDT) [facility] C4 Complement 22 13 - 36 mg/dL 07/21/2024 1:17 PM EDT [facility] Blood Venous blood specimen / Unknown Venipuncture / Unknown 07/21/2024 11:04 AM EDT 07/21/2024 11:04 AM EDT Fili Hutson MD LAB BLOOD ORDERABLES Final Result [facility] [address] [place] [address] * C3 complement (07/21/2024 11:04 AM EDT) C3 Complement 131 84 - 166 mg/dL 07/21/2024 1:17 PM EDT [facility] Blood Venous blood specimen / Unknown Venipuncture / Unknown 07/21/2024 11:04 AM EDT 07/21/2024 11:04 AM EDT Fili Hutson MD LAB BLOOD ORDERABLES Final Result Performing Organization Address City/[facility]/ZIP Co de Phone Number [facility] [address] [place] [address] documented in this encounter Visit Diagnoses Diagnosis Bilateral pleural effusion- Primary Unspecified pleural effusion Systemic lupus erythematosus (SLE) in adult (CMS/HCC) Rash and other nonspecific skin eruption Primary osteoarthritis of knees, bilateral High risk medication use Bilateral pleural effusion Unspecified pleural effusion documented in this encounter Additional Health Concerns Assessment Noted Time PHQ-9 Depression Total Score: 8 07/22/19 25 9:23 AM EDT A fall risk assessment has been complete d for the patient 07/21/2024 9:23 AM EDT A Body Mass Index follow-up plan has been documented for the patient 07/21/2024 10:37 AM EDT documented as of this encounter Care Teams Securities Compliance Examiner Relationship Specialty Start Date End Date Alisa Kunz DO [address] [place] [phone] PCP - General Internal Medicine 03/13/21 Kodi Bustos DO [address] [address] Surgeon Cardiothoracic Surgery 11/06/22 Sujit Arriola MD [address] [place] [phone] Consulting Physician Pulmonary Disease 11/06/22 Sujit Reyes MD [address] [place] [address] Referring Physician 12/04/22 Zully Caldwell LPN [employer] [place] [address] [facility] Nurse 07/16/24 08/15/24 documented as of this encounter
--- OUTSIDE RECORDS SUMMARY | 2024-07-21 10:35 | XMS_ITS | Encounter Summary ---
Author Organization Healthcare Address [address] [place] [address] Care Team Providers Care Shellfish Bed Worker Name Role Phone Alisa Kunz DO Primary Care Provider Kodi Bustos DO Unavailable [phone] Sujit Arriola MD Unavailable [phone] Sujit Reyes MD Unavailable [phone] Zully Caldwell LPN Unavailable Unavailable Encounter Details Date Type Department Care Team (Latest Contact Info) Description 07/21/2024 10:35 AM EDT - 07/21/2024 11:59 PM EDT [facility] [address] [place] [phone] Bilateral pleural effusion Discharge Disposition: Home or Self Care Social [...] How often do you attend chur or mandaen services? 1 to 4 times per year 08/30/2022 Do you belong to any clubs o r organizations such as orthodox groups, unions, fraternal or athletic groups, or [...] Recorded Patient Health Questionnaire-2 Score 0 07/21/2024 [facility] Success of Occupat ional Health - Occupational Stress [...] any time in the past 12 m [facility], were you homeless or living [...] drink first t anselmo in the morning (EYE-MINE SAFETY DIRECTOR) to steady your nerves or to get [...] as of this encounter Functional Status * Over the past 2 weeks, how often have you been bothered by any of the following problems? Question Answer Date of Assessment Author Little interest or pleasure in doing things Not at all 07/21/2024 9:23 AM Catalino Hendrickson Feeling down, depressed, or hopeless Not at all 07/21/2024 9:23 AM Catalino Hendrickson Patient Health Questionnaire -2 Score 0 07/21/2024 [...] Hendrickson R documented as of this encounter Medications at [...] in the morning. 180 each 3 10/03/2023 folic acid (Folvite) 1 MG tablet Taking 1 tablet five days of the week 90 tablet 1 07/16/2024 furosemide (Lasix) 40 MG tablet Take 1 tablet by mouth daily. 30 tablet 07/15/2024 hydroxychloroquine (Plaquenil) 200 MG tabletIndications: Systemic lupus erythematosus (SLE) in adult ([facility]) Take 1 tablet by mouth daily. 90 tablet 1 07/21/2024 latanoprost (Xalatan) 0.005 % ophthalmic solution Administer [...] 1 diabetes mellitus with other specified complication ([facility]),Dyslipid emia Take 1 tablet by mouth 1 (one) time each day. 90 tablet 3 07/07/2023 Probiotic Product (acidophilus probiotic blend) capsule Take 1 capsule by mouth every morning. spironolactone (Aldactone) 25 MG tablet Take 0.25 tablets by mouth daily. 30 tablet 07/20/2024 warfarin (Coumadin) 5 MG tablet Take 2.5 [...] tablet by mouth every morning. 06/14/2024 5 gabapentin (Neurontin) 300 MG capsule Take 1 capsule during the day and 3 capsules at night. 120 capsule 2 04/09/2024 5 insulin glargine (Toujeo SoloStar) 300 UNIT/ML [...] 2 04/26/2024 5 Insulin Pen Needle (Pen Austin) 30G X 5 MM misc use 4 per day 05/13/2019 5 mycophenolate (CellCept) 500 MG tabletIndications: Systemic lupus erythematosus (SLE) in adult (CMS/HCC) Take 3 tablets by mouth 2 times a day. 180 tablet 07/08/2024 5 documented as of this encounter Plan of Treatment Upcoming Encounters Date Type Department Care Team (Late st Contact Info) Description 09/08/2024 11:20 AM EDT Office Visit [facility] Internal Medicine [address] [place] [phone] Alisa Kunz DO [address] [place] [phone] 10/07/2024 4:00 PM EDT Appointment Cardiac Imaging [address] [place] [address] 10/14/2024 4:00 PM EDT [facility] Visit [facility] [address] [place] [phone] Lavern Shoemaker MD [address] [phone] 10/27/2024 1:40 PM EDT [facility] [address] [place] [phone] Anne-Marie Kolb, BIOMASS POWER PLANT MANAGER [address] [place] [phone] 11/29/2024 10:20 AM EDT Office Visit [facility] Internal Medicine [address] [place] [phone] Alisa Kunz, DO [address] [place] [address] 02/02/2025 10:30 AM EST Office Visit [facility] Medicine Specialties [address], [address] [place] [address] Sadiq Osborne, MBBS [address] [place], [place] [id number] documented as of this encounter Procedures Procedure Name Priority Date/Time Associated Diagnosis Comments XR CHEST 2 VIEWS Routine 07/21/2024 11:5 3 AM EDT Bilateral pleural effusion documented in this encounter Results * XR [...] Dominic Mcconnell MD on 07/21/2024 1:52 PM Fili Hutson MD IMG XR PROCEDURES Final Res ult documented in this encounter Visit Diagnoses Diagnosis Bilateral pleural effusion Unspecified pleural effusion documented [...] documented as of this encounter Care Teams Shellfish Bed Worker Relationship Specialty Start Date End Date Alisa Kunz DO [address] [phone] PCP - General Internal Medicine 03/13/21 Kodi Bustos DO [address] [address] Surgeon Cardiothoracic Surgery 11/06/22 Sujit Arriloa MD [address] [place] [address] Consulting Physician Pulmonary Disease 11/06/22 Sujit Reyes MD [address] [place] [address] Referring Physician 12/04/22 Zully Caldwell LPN [employer] [place] [address] [facility] Nurse 07/16/24 08/15/24 documented as of this encounter
--- OUTSIDE RECORDS SUMMARY | 2024-07-30 16:20 | XMS_ITS | Encounter Summary ---
Author Organization Healthcare Address [address] [place] [address] Care Team Providers Care Cert Occupational Therapy Asst Name Role Phone ZeAlisa willett Torri SOLIS Primary Care Provider [phone] Kodi Bustos DO Unavailable [phone] Sujit Arriola MD Unavailable [phone] Sujit Ryees MD Unavailable [phone] Zully Caldwell LPN Unavailable Unavailable Reason for Referral * Consultation (Routine) - Authorized Specialty Diagnoses / Procedures Referred By Luis Armando mckeon Referred To Contact Voice and Swallow Diagnoses Dysphonia Andra Herman MD [address] [place] [address] Phone: tel: fax: Referral ID Status Reason Start Date Expiration Date Visits Requested Visits Authorized [id number] Authorized Specialty Services Required 07/30/2024 01/29/2026 1 1 Reason for Visit * Reason Comments Follow-up Encounter Details Date Type Department Care Team (Late st Contact Info) Description 07/30/2024 4:20 PM EDT Office Visit [place] [facility] [address] [place] [address] Andra Herman MD [address] [place] [address] Dysphonia (Primary Dx) Social History Tobacco Use Types [...] week 08/30/2022 How often do you attend formerly [facility] or mosque services? 1 to 4 times per year 08/30/2022 Do you belong to any clubs o r organizations such as adventism groups, unions, fraternal or athletic groups, or [...] Recorded Patient Health Questionnaire-2 Score 0 07/21/2024 [facility] - Occupational Stress Questionnaire Answer Date [...] place to sleep or slept in a retirement (including now)? No 12/30/2023 PHQ-9 Answer Date [...] any time in the past 12 m [facility], were you homeless or living in a retirement (including now)? No 05/27/2024 CAGE ASSESSMENT Answer [...] drink first t anselmo in the morning ([employer]) to steady your nerves or to get [...] Sign Reading Time Taken Comments Blood Pressure 97/61 07/30/2024 4:15 PM EDT Pulse 60 07/30/2024 4:15 PM EDT Temperature - - Respiratory Rate - - Oxygen Saturation - - Inhaled Oxygen Concentration - - Weight 61 kg (134 lb 7.7 oz) 07/30/2024 4:15 PM EDT Height - - Body Mass Index 23.08 07/21/2024 9:14 AM EDT documented in this encounter Miscellaneous Notes * Patient Instructions - Andra Herman MD - 07/30/2024 4:20 PM EDT You will receive a call to schedule voice therapy. If you do not receive a call within the next 1-2weeks, please contact the voice and swallow therapy clinic at [phone] What is voice therapy? We offer a highly individualized direct approach to meeting your vocal goalsin voice therapy. By focusing on coordinating the components of voice production - breath, vocal fold vibration, and resonance - we can help you optimize your voice in spite of any structural issues that might be present. Our team of speech pathologists undergoes specialized training in voice in order to provide the best vocal health care available. What is my role in voice therapy? Therapy attendance is only a small part of the work that leads tosuccess in voice therapy. Commitment to home practice is paramount to your success. How many therapy appointments will I need? Number of sessions and time needed to meet therapy goalsvaries widely. It is based on severity of the voice disorder and prognosis for improvement. Voice therapy patients are typically seen once a week or once every other week for 4-8 sessions. It takes time to change muscle patterns and develop new vocal behaviors. How will I know if therapy is working? Your voice therapist will work with you to develop realisticgoals for success. Every therapy session is an opportunity to discuss your progress. Smartphone recordings: If you have a smartphone or other recording device, bring it with you to therapy. It can be helpful to record your session so you have your therapist's voice to use as a guide when you practice at home. Please respect your fellow patients. Many of our patients have sensitivities to odors causing severe respiratory distress. Please refrain from wearing scented lotions and perfumes/colognes when coming to the clinic. Please respect your provider. Contact us [facility] when you realize you can't come to your scheduled appointment. We often have a waiting list of patients trying to get in. If we know you can't make it, we can open up the appointment time for someone else. If you are sick, please call to cancel/reschedule your appointment. Please give at least 24 hours' notice when changing or cancelling an appointment. Voice and Swallow Clinic [facility] 3rd floor, [facility], [address] [place], [place] [address] Clinic: [phone] * Progress Notes - Andra Herman MD - 07/30/2024 4:20 PM EDT OTOLARYNGOLOGY - HEAD & NECK SURGERY FOLLOW-UP NOTE Chief Complaint Patient presents with Follow-up LAST VISIT: 03/26/24 TREATMENT HISTORY: Michelle Felipe is a 74 y.o. female who presented to clinic for dysphonia. She has a history of SLE. At her initial exam, there was irregularity of the TVF and dryness consistent with laryngitis sicca and ulcerative laryngitis. We recommended hydration and humidification. On follow up, there was resolution of the irregularity. She had persistent dysphonia, so we recommended voice therapy. Sincelast visit she has been diagnosed with a fib. She also has has pleural effusions that has required drainage x2. She continues to have difficulty with her voice. MEDS: Current Medications[1] ALLERGIES: Morphine, Morphine and codeine, Pravastatin, Azathioprine, Cephalexin, Codeine, Penicillins, Rosuvastatin, Seasonal ic [cholestatin], Statins, Tetracycline, and Tetracyclines & related PERTINENT SOCIAL HISTORY: She reports current alcohol use of about 4.0 standard drinks of alcohol per week. She reports no history of drug use. PHYSICAL EXAM: BP 97/61 Pulse 60 Wt 61 kg (134 lb 7.7 oz) BMI 23.08 kg/m?? Gen: Well developed, well nourished female in no apparent distress. Neuro: A&Ox3. Respiratory: No increased WOB, no stridor OC/OP: Tongue midline and mobile, no oral cavity lesions or masses. No tonsillar hypertrophy, without exudate or erythema. Palate elevates symmetric. Lymph: No palpable lymphadenopathy PROCEDURE NOTE: PROCEDURE PERFORMED: Flexible laryngoscopy with stroboscopy Indications: Dysphonia PROVIDER: Andra Herman MD ANESTHESIA: Local (4% lidocaine with afrin) PROCEDURE IN DETAIL: The patient was placed in the seated sniffing position. A flexible laryngoscope was inserted through the nasal cavity and guided to an area just above the vocal folds. The larynxwas visualized during respiration and phonation. See findings below. The patient was discharged in good condition. Velopharynx: Complete closure without weakness Vocal Fold Color/Quality: Significantly improved with resolution of laryngitis sicca. Vocal Fold Mobility/Position: Normal Atrophy of Vocal Folds: Mild Vocal Fold Lesions: None Supraglottic Hyperfrunctional Contraction: Hyperfunctioning present Tremor: None Subglottis: Clear Other Findings (Nasopharynx, Base of tongue, Piriforms): Normal Vibratory Parameters: Symmetry: Symmetric Amplitude: Normal Mucosal Wave: Normal Periodicity: 100% periodic Closure: At modal pitch, complete Summary: Vocal fold atrophy and supraglottic hyperfunctioning DATA REVIEW: I personally reviewed the following data below: Lab Results Component Value Date TSH 0.77 07/07/2023 CXR 07/21/24 FINDINGS: Stable support hardware. Stable mediastinal contours and enlarged cardiac silhouette. Stable small pleural effusions with associated basilar atelectasis. No pneumothorax. IMPRESSION: Stable small pleural effusions with associated atelectasis. CTA 07/13/24 IMPRESSION: No pulmonary embolism. Persistent moderate to large right and trace left pleural effusions with complete right lower lobe and partial right middle lobe consolidation/atelectasis. Mosaic attenuation indicative of small airway disease or small vessel disease. Intermittent voie use EAT-10: 1 RSI: 16 VHI-10: 34 CSI: 0 DI: 27 Assessment/Plan Michelle Felipe is a 74 y.o. female who presented to clinic for dysphonia. She initially was found to have laryngitis sicca and some ulcerative laryngitis which resolved with conservative measures.She continues to have dysphonia. I recommend a trail of voice therapy. However, I advised that given her recurrent pleural effusions some of the dysphonia may be related to poor breath support. [1] Current Outpatient Medications: acetaminophen (Tylenol) 500 MG tablet, Take 2 tablets by mouth every 6 hours as needed., Disp: , Rfl: amLODIPine (Norvasc) 5 MG tablet, Take 1 tablet by mouth every morning., Disp: , Rfl: aspirin 81 MG EC tablet, Take 1 tablet by mouth every evening., Disp: , Rfl: brimonidine 0.2 % OP ophthalmic solution, Administer 1 drop into both eyes daily., Disp: 10 mL, Rfl: 0 busPIRone (Buspar) 10 MG tablet, Take 1 tablet by mouth 2 times a day., Disp: , Rfl: Calcium Carb-Cholecalciferol 600-200 MG-UNIT tablet, Take 1 tablet by mouth every morning., Disp: ,Rfl: cetirizine (ZyrTEC) 10 MG tablet, Take 1 tablet by mouth every evening., Disp: , Rfl: clobetasol (Temovate) 0.05 % cream, Apply 1 Application topically 2 times a day as needed., Disp: ,Rfl: diclofenac (Voltaren) 1 % topical gel, Place 1-2 g on the skin 2 (two) times a day. Apply as directed to Lower Back, Disp: 100 g, Rfl: 3 DULoxetine (Cymbalta) [address] capsule, Take 1 capsule (20 mg) by mouth 1 (one) time each day in the morning. Taking 80mg total, Disp: 90 capsule, Rfl: 3 DULoxetine (Cymbalta) [address] capsule, Take 1 capsule by mouth every morning. Do not crush or chew. Take in addition to one 20mg capsule for a total of 80mg daily., Disp: , Rfl: ezetimibe (Zetia) 10 MG tablet, Take 1 tablet by mouth nightly., Disp: , Rfl: Nseggmiqdgq-Tjiyfbewq-Bzefbh (Trelegy Ellipta) 200-62.5-25 MCG/ACT aerosol powder , Inhale 1 puff 1(one) time each day in the morning., Disp: 180 each, Rfl: 3 folic acid (Folvite) 1 MG tablet, Taking 1 tablet five days of the week, Disp: 90 tablet, Rfl: 1 furosemide (Lasix) 40 MG tablet, Take 1 tablet by mouth daily., Disp: 30 tablet, Rfl: 0 gabapentin (Neurontin) 300 MG capsule, Take 1 capsule during the day and 3 capsules at night. (Patient taking differently: 300mg in AM and 900mg at night), Disp: 120 capsule, Rfl: 2 hydroxychloroquine (Plaquenil) 200 MG tablet, Take 1 tablet by mouth daily., Disp: 90 tablet, Rfl: 1 insulin glargine (Toujeo SoloStar) 300 UNIT/ML injection pen (1 UNIT DIAL), Inject 13 Units under the skin daily., Disp: 4.5 mL, Rfl: 2 insulin lispro (HumaLOG KWIKPEN) 100 UNIT/ML injection pen, Inject 3-4 units before breakfast and lunch, 2-3 units before dinner and 1:75>160 mg/dl. Max tdd 30 units, Disp: 15 mL, Rfl: 2 Insulin Pen Needle (Pen [place]) 30G X 5 MM misc, use 4 per day, Disp: , Rfl: latanoprost (Xalatan) 0.005 % ophthalmic solution, Administer 1 drop into both eyes nightly., Disp:, Rfl: levothyroxine (Synthroid, Levoxyl) 125 MCG tablet, Take 1 tablet (125 mcg) by mouth 1 (one) time each day before breakfast., Disp: 90 tablet, Rfl: 3 metoprolol succinate XL (Toprol-XL) 25 MG 24 hr tablet, Take 1 tablet by mouth every morning., Disp: , Rfl: mycophenolate (CellCept) 500 MG tablet, Take 3 tablets by mouth 2 times a day., Disp: 180 tablet, Rfl: 0 nitroglycerin (Nitrostat) 0.4 MG SL tablet, Place 1 tablet under the tongue every 5 minutes as needed for chest pain., Disp: , Rfl: oxygen (O2) gas, Inhale 2 L nightly. via nasal canula (Patient taking differently: Inhale 3 L continuously. via nasal canula), Disp: , Rfl: Pitavastatin Calcium (Livalo) 4 MG tablet, Take 1 tablet by mouth 1 (one) time each day., Disp: 90 tablet, Rfl: 3 Probiotic Product (acidophilus probiotic blend) capsule, Take 1 capsule by mouth every morning., Disp: , Rfl: spironolactone (Aldactone) 25 MG tablet, Take 0.25 tablets by mouth daily., Disp: 30 tablet, Rfl: 0 warfarin (Coumadin) 5 MG tablet, Take 2.5 mg on Friday and 5mg the rest of the week and follow up with your warfarin pharmacist., Disp: 30 tablet, Rfl: 0 documented in this encounter Plan of Treatment Upcoming Encounters Date Type Department Care Team (Late st Contact Info) Description 09/08/2024 11:20 AM EDT Office Visit [facility] Internal Medicine [address] [facility], [address] [place] [id number] Alisa Kunz, DO [address] [place] [phone] 10/07/2024 4:00 PM EDT Appointment Cardiac Imaging [address] [place] [address] 10/14/2024 4:00 PM EDT Office Visit [facility] Medicine Specialties [address], [address]nd [place] [address] Lavern Shoemaker MD [address] [place], [place] [id number] 10/27/2024 1:40 PM EDT Office Visit [facility] Endocrinology [address] [place] [phone] Anne-Marie Kolb L, ASSOCIATE [employer] [address] [facility] [address] [place] [address] 11/29/2024 10:20 AM EDT Office Visit [facility] Internal Medicine [address], [address] [place] [phone] Alisa Kunz, DO [address] [facility] [address] [place] [phone] 02/02/2025 10:30 AM EST Office Visit [facility] Medicine Specialties [address], [address] [place] [phone] Sadiq Osborne MBBS [address] [place] [address] Scheduled Referrals Name Type Priority Associated Diagnoses Order Schedule Ambulatory Referral to Voice and Swallow Outpatient Referral Routine Dysphonia 1 Occurrences starting 07/30/2024 until 01/30/2026 documented as of this encounter Visit Diagnoses Diagnosis Dysphonia- Primary documented in this encounter Additional Health Concerns Assessment Noted Time PHQ-9 Depression Total Score: 8 07/22/19 9:23 AM EDT A fall risk assessment has been complete d for the patient 07/21/2024 9:23 AM EDT A Body Mass Index follow-up plan has been documented for the patient 07/30/2024 4:39 PM EDT documented as of this encounter Care Teams Cert Occupational Therapy Asst Relationship Specialty Start Date End Date Alisa Kunz DO [address] [place] [address] PCP - General Internal Medicine 03/13/21 Kodi Bustos DO [address] [address] Surgeon Cardiothoracic Surgery 11/06/22 Sujit Arriola MD [address] [place] [address] Consulting Physician Pulmonary Disease 11/06/22 Sujit Reyes MD [address] [place] [address] Referring Physician 12/04/22 Zully Caldwell LPN VALUE-BASED TRANSFORMATION [place] [address] TCM Nurse 07/16/24 08/15/24 documented as of this encounter
--- OUTSIDE RECORDS SUMMARY | 2024-08-04 10:45 | XMS_ITS | Encounter Summary ---
Author Organization Healthcare Address [address] [place] [address] Care Team Providers Care Outdoor Studies Professor Name Role Phone ZeAlisa willett Torri SOLIS Primary Care Provider [phone] Kodi Bustos DO Unavailable [phone] Sujit Arriola MD Unavailable [phone] Sujit Reyes MD Unavailable [phone] Zully Caldwell LPN Unavailable Unavailable Reason for Visit * Reason Comments Follow-up * Consultation (Routine) - Closed Specialty Diagnoses / Procedures Referred By Luis Armando t Referred To Contact [facility] Trans[facility] Cardiology / Cardiology Diagnoses Heart failure, unspecified HF chronicity, unspecified heart failure type (CMS/HCC) Shabana Nguyen DO [address] [place] [address] Phone: tel: fax: [facility] [address] [place] [address] Phone: tel: fax: Referral ID Status Reason Start Date Expiration Date V isits Requested Visits Authorized [id number] Closed Specialty Services Required 05/18/2024 11/17/2025 1 1 Encounter Details Date Type Department Care Team (Late st Contact Info) Description 08/04/2024 10:45 AM EDT Office Visit [facility] [place] [facility] [address] [facility], [address] [place] [address] Cassius Gonzales MD [address] [place] [address] Heart failure with preserved ejection fraction, unspecified HF chronicity (CMS/HCC) (Primary Dx); Atrial fibrillation, unspecified type (CMS/HCC); Chronic hypoxic respiratory failure; Presence of cardiac pacemaker; Heart failure, unspecified HF chronicity, unspecified heart failure type (CMS/HCC); Pulmonary hypertension (CMS/HCC) Social History Tobacco Use Types Packs/Day Years [...] 08/30/2022 How often do you attend chur ch or alevism services? 1 to 4 times per year 08/30/2022 Do you belong to any clubs o r organizations such as buddhist groups, unions, fraternal or athletic groups, or [...] Date Recorded Patient Health Questionnaire-2 Score 0 08/04/2024 [facility] - Occupational Stress [...] place to sleep or slept in a fpc (including now)? No 12/30/2023 PHQ-9 Answer Date [...] any time in the past 12 m [facility], were you homeless or living in a fpc (including now)? No 05/27/2024 CAGE ASSESSMENT Answer [...] drink first t anselmo in the morning ([employer]) to steady your nerves or to get rid of a hangover? 0 07/12/2024 CAGE Questionnaire Score 0 025 Utilities Answer Date Recorded In the past 12 months has e [employer], gas, oil, or water [email or web address] threatened to shut off services in your [...] Sign Reading Time Taken Comments Blood Pressure 116/73 08/04/2024 10:44 AM EDT Pulse 85 08/04/2024 10:44 AM EDT Temperature - - Respiratory Rate - - Oxygen Saturation 100% 08/04/2024 10:44 AM EDT Inhaled Oxygen Concentration - - Weight 61.7 kg (136 lb) 08/04/2024 10:44 AM EDT Height 162.6 cm (5' 4 ) 08/04/2024 10:44 AM EDT Body Mass Index 23.34 08/04/2024 10:44 AM EDT documented in this encounter Functional Status * Over the past 2 weeks, how often have you been bothered by any of the following problems? Question Answer Date of Assessment Author Little interest or pleasure in doing things Not at all 08/04/2024 10:41 AM JANET Melany Ragland Feeling down, depressed, or hopeless Not at all 08/04/2024 10:41 AM JANET Melany Ragland Patient Health Questionnaire -2 Score 0 08/04/2024 10:41 AM JANET Melany Ragland * Question Answer Date of Assessment Author Trouble falling or staying asleep, or sleeping too much Not at all 08/04/2024 10:41 AM Clarisa Jimenez Poor appetite or overeating Not at all 08/04/2024 10 :41 AM JANET Clarisa Ragland Feeling bad about yourself - or that you are a failure or have let yourself or your family down Not at all 08/04/2024 10:41 AM EDT Clarisa Diamond Moving or speaking so slowly that other people could have noticed? Or the opposite - being so fidgety or restless that you have been moving around a lot more than usual. Not at all 08/04/2024 10:41 AM Melany Jimenez Thoughts that you would be better off or hurting yourself in some way Not at all 08/04/2024 10:41 AM JANET Liu Ragland * If you checked off any problems on this questionnaire so far, Question Answer Date of Assessment Author How difficult have these problems made it for you to do your work, take care of things at home, or get along with other people? Not difficult at all 08/04/2024 10:41 AM EDT Liu Ragland documented as of this encounter Miscellaneous Notes * Patient Instructions - Cassius Gonzales MD - 08/04/2024 10:45 AM EDT We discussed today your complex heart conditions that could be causing the excess fluid build in your lungs. We still believe that the lupus is what primarily is causing this fluid build up but it islikely that the heart is contributing. You have congestive heart failure and atrial fibrillation both of which could cause fluid build up in your body and lungs. You also may have developed pulmonaryhypertension as a result of your lupus and/or your congestive heart failure. To determine which of these is the likely cause of the pulmonary hypertension, a right heart catheterization is the test of choice. For your medications; we recommend you take 2.5mg of amlodipine at night before you sleep. This should reduce the instances of your dizziness or low blood pressure readings. * Progress Notes - Samuel Mims MD - 08/04/2024 10:45 AM EDT Images from the original note were not included. Cardiology Clinic Note Patient Name: Michelle Felipe Primary Care Physician: Alisa Kunz DO [address] [address] Referring Physician: Shabana Nguyen DO [address] [place] [address] Subjective Chief Complaint(s): Dyspnea Cardiac consultation performed today at the request of Shabana Chris DO. A copy of this consultation note will be provided to the requesting physician by way of shared medical record or letterto requesting physician via [place] mail. History of Present Illness Ms. Felipe is a pleasant 74 y.o. female, who has PMH of: CAD s/p CABG c/b ISR Mild-moderate AI with concomitant MS Atrial fibrillation on warfarin 3rd degree AV block s/p PPM HFpEF SLE CVA T1DM Chronic hypoxemic respiratory failure Michelle presents today for hospital follow up. She was admitted in 07/2024 for an acute on chronic hypoxemic respiratory failure thought to be secondary to HFpEF exacerbation. During that admission, she underwent thoracentesis and was diuresed aggressively. Echo during that admission showed preservedEF, poorly visualized RV, severe MAC, and moderate AI. She reports that since then, she has been overall doing well and has managed to keep her fluid down, but she has overall been fatigued, has had intermittent orthostatic symptoms, and continues to require 3L oxygen. She states that she has been in afib for several months, and she follows with Dr. Velasquez at [facility] for EP who is wanting to initiate dofetilide and to perform a DCCV. She has been compliant with taking her lasix daily, and she has been taking low dose spironolactoneas well as amlodipine. She reports intermittent episodes of orthostasis especially after taking herspironolactone. She reports being started on a higher dose, but this had to be reduced due to low blood pressures. Regarding her hypoxia and recurrent effusions, she reports she has never smoked, but she grew up around both parents who smoked as well as some asbestos exposure. She has had to use oxgyen continuously since about last year. She believes a majority of her symptoms are secondary to her SLE for whichshe has been on Cellcept and Plaquenil. She has had recurrent effusions since 2020 and has had a chemical pleurodesis along with multiple thoracenteses. Review of Systems A 14 point ROS was obtained and all are negative except pertinent positives in HPI. The following portions of the patient's history were reviewed and updated as appropriate: allergies, current medications, immunization history, past family history, past medical history, past social history, past surgical history and problem list. Social History Social History Tobacco Use Smoking status: Never Passive exposure: Past (2nd hand smoke) Smokeless tobacco: Never Substance Use Topics Alcohol use: Yes Alcohol/week: 4.0 standard drinks of alcohol Types: 3 Cans of beer, 1 Shots of liquor per week Comment: Nightly Allergies she is allergic to morphine, morphine and codeine, pravastatin, azathioprine, cephalexin, codeine, penicillins, rosuvastatin, seasonal ic [cholestatin], statins, tetracycline, and tetracyclines &related. Current Medications Current Medications[1] Objective Physical Exam VITAL SIGNS: Visit Vitals BP 116/73 Pulse 85 Ht 1.626 m (5' 4 ) Wt 61.7 kg (136 lb) SpO2 100% BMI 23.34 kg/m?? Physical Exam Constitutional: Appearance: She is ill-appearing (chronic). HENT: Head: Normocephalic and atraumatic. Cardiovascular: Rate and Rhythm: Normal rate and regular rhythm. Pulses: Normal pulses. Heart sounds: Murmur heard. Pulmonary: Effort: Pulmonary effort is normal. Breath sounds: Normal breath sounds. No rales. Musculoskeletal: Right lower leg: No edema. Left lower leg: No edema. Neurological: Mental Status: She is alert and oriented to person, place, and time. Psychiatric: Mood and Affect: Mood normal. Behavior: Behavior normal. EKG I independently reviewed a 12-lead electrocardiogram from 07/12/2024 which showed V paced rhythm. Lab Review I Personally reviewed and interpreted the recent labs while in clinic (including the ones performedat another facility), and discussed those results with the patient. Lab Results Component Value Date NA 134 (L) 07/21/2024 K 4.1 07/21/2024 CL 94 (L) 07/21/2024 CO2 26 07/21/2024 BUN 18 07/21/2024 CREATININE 1.07 07/21/2024 CALCIUM 8.9 07/21/2024 Lab Results Component Value Date AST 30 07/21/2024 ALT 18 07/21/2024 ALKPHOS 100 07/21/2024 BILITOT 0.3 07/21/2024 Lab Results Component Value Date CHOL 133 07/07/2023 TRIG 163 (H) 07/07/2023 HDL 55 07/07/2023 LDLCALC 51 07/07/2023 LDLCALC 116 04/18/2020 LDLCALC Multiple SCM orders. Tests consolidated. 04/18/2020 Lab Results Component Value Date WBC 7.62 07/21/2024 HGB 10.6 (L) 07/21/2024 HCT 33.5 (L) 07/21/2024 PLT 459 (H) 07/21/2024 MCV 94 07/21/2024 MCV 94 04/19/2020 Lab Results Component Value Date TSH 0.77 07/07/2023 BNP 3,235 (H) 07/13/2024 Imaging I personally and independently reviewed the most recent imaging studies which are summarized as follows, and these have been discussed with the patient. TTE/KENIA Echo, Adult Transthoracic Complete Result Date: 07/15/2024 Left Ventricle: The left ventricle is not [...] at a heart rate of 99 bpm. Pericardium:No pericardial effusion. Compared to the most recently available prior study, and allowing for differences in image quality and technique, there is no significant interval change noted. Echo, Adult Transthoracic Complete Result Date: 05/17/2024 [...] and technique, LV apical thrombus has resolved. Cardiac Catheterization CARDIAC CATHETERIZATION N/A 05/04/2020 [facility] PTCA RCA ISR: Patent Grafts. 04/30 Assessment/Plan Assessment and Plan Ms. Felipe is a pleasant 74 y.o. 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 She was recently started on GDMT for HFpEF and aggressively diuresed, and she has maintained euvolemia ondaily Lasix and spironolactone. Unfortunately, she is unable to take SGLT2 inhibitor due to her T1DM. Upon looking at her echo, she does have a degree of AI as well as severe mitral annular calcification, but she only has mild MS. We do not suspect that her symptoms and recurrent effusions are due to her valvular disease, and her most recent echo shows only mild RVSP. However, SLE can sometimes cause Group 1 PAH, and now that she is euvolemic we will plan for a RHC to evaluate. Given her orthostatic symptoms, we will also decrease her amlodipine to 2.5 mg and see if this improves her symptoms. Plan: Continue lasix 40 mg, spironolactone 6.25 mg Continue high intensity statin with pitavastatin, zetia, and ASA Decrease amlodipine to 2.5 mg to see if this helps with symptoms Will plan for RHC now that patient is euvolemic Thank you very much for allowing us to participate in the care of this patient. Please do not hesitate to contact me with any further questions regarding Ms. Felipe's cardiovascular evaluation. I personally spent a total of 60 minutes on this encounter. This time includes [id number] addressing the current illness, reviewing records (prior imaging, lab work, etc), formulating a plan, documenting visit and/or coordination of care. I discussed the assessment and plan with Dr. Gonzales. Recommendations are not finalized until cosigned by the attending physician. Samuel Mims MD PGY-2 Internal Medicine [1] Current Outpatient Medications Medication Sig Dispense Refill [...] tablet Take 1 tablet by mouth nightly. Fqnicgmvisb-Trolblzge-Hmiodp (Trelegy Ellipta) 200-62.5-25 MCG/ACT aerosol powder Inhale 1 puff 1 (one) time each day in the morning. 180 each 3 folic acid (Folvite) 1 MG tablet Taking 1 tablet five days of the week 90 tablet 1 furosemide (Lasix) 40 MG tablet Take 1 tablet by mouth daily. 30 tablet 0 gabapentin (Neurontin) 300 MG capsule Take 1 capsule during the day and 3 capsules at night. 120 capsule 2 hydroxychloroquine (Plaquenil) 200 MG tablet Take 1 tablet by mouth daily. 90 tablet 1 insulin glargine (Toujeo SoloStar) 300 UNIT/ML injection pen (1 UNIT DIAL) Inject 13 Units under the skin daily. 4.5 mL 2 insulin lispro (HumaLOG KWIKPEN) 100 UNIT/ML injection pen Inject 3-4 units before breakfast and lunch, 2-3 units before dinner and 1:75>160 mg/dl. Max tdd 30 units 15 mL 2 Insulin Pen Needle (Pen Melvern) 30G X 5 MM misc use 4 [...] 2 times a day. 180 tablet 0 oxygen (O2) gas Inhale 2 L nightly. via nasal canula Pitavastatin Calcium (Livalo) 4 MG tablet Take 1 tablet by mouth 1 (one) time each day. 90 tablet 3 Probiotic Product (acidophilus probiotic blend) capsule Take 1 capsule by mouth every morning. spironolactone (Aldactone) 25 MG tablet Take 0.25 tablets by mouth daily. 30 tablet 0 warfarin (Coumadin) 5 MG tablet Take 2.5 mg on Friday and 5mg the rest of the week and follow up with your warfarin pharmacist. 30 tablet 0 amLODIPine (Norvasc) 2.5 MG tablet Take 1 tablet by mouth nightly. moxifloxacin (Vigamox) 0.5 % ophthalmic solution instill 1 drop into affected eye 4 TIMES A DAY nitroglycerin (Nitrostat) 0.[address] 1 tablet under the tongue every 5 minutes as needed for chest pain. prednisoLONE acetate (Pred-Forte) 1 % ophthalmic suspension instill 1 drop into affected eye 4 TIMES A DAY No current facility-administered medications for this visit. Cosigned by Cassius Gonzales MD at 08/04/2024 4:48 PM EDT Associated attestation - Cassius Gonzales MD - 08/04/2024 4:48 PM EDT I saw and evaluated the patient with the resident/fellow. I discussed the case with the resident/fellow and agree with the findings and plan as documented. 74 F w/ complex cardiac history who follows at [facility]. Extensive history of CAD s/p CABG and multiple PCIs. Has Afib, a pacer for complete heart block and HFpEF. Has lupus and recurrent pleural effusions. She is here to follow up post hospital discharge to assess whether there is a cardiac component to her symptomatology. Explained to patient that given her underlying autoimmune disease, lung pathology as well as cardiac history it is unlikely that there is one disease process that would explain her recurrent pleural effusions. 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 Her HFpEF is likely what's contributing to her symptoms the most. She also has significantly elevated right sided filling pressures which improved significantly after diuresis per most recent echo (TR V max around 3.1m/s thus RVSP is 38 + RA pressure). 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 Patient agreeable. Patient wishes to address her underlying Afib with EP at [facility]. Plan is to admit for tikosyn +/- DCCV. Maintaining sinus rhythm may help alleviate some of the HF symptoms. Will plan for RHC 4 weeksafter above (tentatively schedule 6 weeks from now). Patient is on coumadin for reported valvular Afib but her valvular disease is not rheumatic and thus DOACs are acceptable. Should she encounter issues labile INR, switching back to a DOAC should be reasonable. Patient experiencing orthostatic symptoms since starting bessie and thus will change norvasc to halfdose and switch to night time administration. This should hopefully allow us to uptitrate bessie further. Patient denies significant anginal symptoms but she is fairly sedentary. documented in this encounter Plan of Treatment Upcoming Encounters Date Type Department Care Team (Late st Contact Info) Description 09/08/2024 11:20 AM EDT Office Visit [facility] Internal Medicine [address] [place] [address] Alisa Kunz, [address] [place] [phone] 10/07/2024 4:00 PM EDT Appointment Cardiac Imaging [address] [place] [address] 10/14/2024 4:00 PM EDT Office Visit [facility] [address], [address] [place] [phone] Lavern Shoemaker MD [address] [place], [place] [id number] 10/27/2024 1:40 PM EDT Office Visit [facility] [address] [place] [phone] Anne-Marie Kolb, VICE PRESIDENT OF COMMUNICATIONS [address] [place] [address] 11/29/2024 10:20 AM EDT Office Visit [facility] Internal Medicine [address] [place] [phone] Alisa Kunz DO [address] [place] [phone] 02/02/2025 10:30 AM EST Office Visit [facility] [address] [place] [address] Sadiq Osborne MBBS [address] [place], [place] [id number] documented as of this encounter Visit Diagnoses Diagnosis Heart failure with preserved ejection fraction, unspecified HF chronicity (CMS/HCC)- Primary Atrial fibrillation, unspecified type (CMS/HCC) Chronic hypoxic respiratory failure Presence of cardiac pacemaker Cardiac pacemaker in situ Heart failure, unspecified HF chronicity, unspecified heart failure type (CMS/HCC) Pulmonary hypertension (CMS/HCC) Other chronic pulmonary heart diseases documented in this encounter Additional Health Concerns Assessment Noted Time PHQ-9 Depression Total Score: 8 07/22/19 25 9:23 AM EDT A fall risk assessment has been complete d for the patient 08/04/2024 10:41 AM EDT A Body Mass Index follow-up plan has been documented for the patient 08/04/2024 3:14 PM EDT documented as of this encounter Care Teams Outdoor Studies Professor Relationship Specialty Start Date End Date Alisa Kunz DO [address] [place] [address] PCP - General Internal Medicine 03/13/21 Kodi Bustos DO [address] [place] [phone] Surgeon Cardiothoracic Surgery 11/06/22 Sujit Arriola MD [address] [place] [address] Consulting Physician Pulmonary Disease 11/06/22 Sujit Reyes MD [address] [place] [address] Referring Physician 12/04/22 Zully Caldwell LPN [employer] [address] [facility] Nurse 07/16/24 08/15/24 documented as of this encounter
--- OUTSIDE RECORDS SUMMARY | 2024-08-04 14:20 | XMS_ITS | Encounter Summary ---
Author Organization [facility] Address [address] [place] [address] Care Team Providers [employer] Team Member Name Role Phone ZeNitin willettgricel Wild DO Primary Care Provider [phone] Kodi Bustos DO Unavailable [phone] Sujit Arriola MD Unavailable [phone] Sujit Reyes MD Unavailable [phone] Zully Caldwell LPN Unavailable Unavailable Reason for Referral * Consultation (Routine) - Authorized Specialty Diagnoses / Procedures Referred By Contac t Referred To Contact Diagnoses Type 1 diabetes mellitus with hyperglycemia (CMS/HCC) Anne-Marie Kolb APRN [address] [facility] [address] [place] [address] Phone: tel: fax: Referral ID Status Reason Start Date Expiration Date V isits Requested Visits Authorized [id number] Authorized 08/04/2024 02/03/2026 1 1 Reason for Visit * Reason Comments Diabetes * Consultation (Routine) - Closed Specialty Diagnoses / Procedures Referred By Contac t Referred To Contact Diagnoses Type 1 diabetes mellitus with hyperglycemia (CMS/HCC) Shantal Jones APRN Phone: tel: fax: Referral ID Status Reason Start Date Expiration Date Visits Re quested Visits Authorized [id number] Closed 04/26/2024 10/26/2025 1 1 Encounter Details Date Type Department Care Team (Late st Contact Info) Description 08/04/2024 2:20 PM EDT Office Visit [facility] [address] [place] [address] Anne-Marie Kolb, REMOTE BROADCAST ENGINEER [address] [facility] [address] [place] [address] Type 1 diabetes mellitus with hyperglycemia (CMS/HCC) (Primary Dx); Neuropathy; Hyperlipidemia, unspecified hyperlipidemia type Social History Tobacco Use Types Packs/Day [...] week 08/30/2022 How often do you attend [facility] or jehovah's witness services? 1 to 4 times per year 08/30/2022 Do you belong to any clubs o r organizations such as lutheran groups, unions, fraternal or athletic groups, or [...] Recorded Patient Health Questionnaire-2 Score 0 08/04/2024 [facility] - Occupational Stress Questionnaire Answer Date [...] place to sleep or slept in a care home (including now)? No 12/30/2023 PHQ-9 Answer [...] time in the past 12 m [facility], were you homeless or living in a care home (including now)? No 05/27/2024 CAGE ASSESSMENT [...] drink first t anselmo in the morning (EYE-FIXED ROUTE OPERATOR) to steady your nerves or to get rid of a hangover? 0 07/12/2024 CAGE Questionnaire Score 0 025 Utilities Answer Date Recorded In the past 12 months has e electric, gas, oil, or water company [...] Sign Reading Time Taken Comments Blood Pressure 97/56 08/04/2024 2:14 PM EDT Pulse 64 08/04/2024 2:14 PM EDT Temperature - - Respiratory Rate - - Oxygen Saturation - - Inhaled Oxygen Concentration - - Weight 63.9 kg (140 lb 14 oz) 08/04/2024 2:14 PM EDT Height - - Body Mass Index 24.18 08/04/2024 10:44 AM EDT documented in this [...] usual. Not at all 08/04/2024 10:41 AM JANET Melany Ragland Thoughts that you would be better off [...] encounter Miscellaneous Notes * Patient Instructions - Anne-Marie Kolb APRN - 08/04/2024 2:20 PM EDT Lab Results Component Value Date HGBA1C 8.4 (H) 05/24/2024 CHANGES: Adjust Toujeo to 7u twice a day for at least 5 days, if no improvement, can start taking all 14u atbedtime Continue Lispro 2-4u with food plus 1:50>150 correction (if you go low, start with glucose readings >200 - call the diabetes education team with any questions or concerns [phone] * Progress Notes - Anne-Marie Kolb APRN - 08/04/2024 2:20 PM EDT Images from the original note were not included. Subjective Michelle Felipe is a 74 y.o. female who presents for a follow up evaluation of Diabetes Mellitus Type 1. Patient was diagnosed in 1959. Current symptoms/problems include hyperglycemia. Past medical history includes obstructive lung disease, HFpEF, CVA, A fib on Eliquis, complete heart block s/p permanent pacemaker, CAD s/p CABG Diabetes - Last OV 04/26/24. Since then she was hospitalized 07/13/24-07/15/24 with HFpEF and pleural effusion - 05/24/24 A1c was 8.4%-> 7.9% -> 8.1%-> 7.9% History of DKA: Denies. Current treatment includes intensive insulin injection program Toujeo 13 units every morning Lispro 3 units with BK and lunch and 2u with supper plus 1:75>160. Estimated TDD: 15-20 units - has been seen for pump education, ended up not wanting to persue Compliance at present is estimated to be good. Known diabetic complications: peripheral neuropathy and cerebrovascular disease Cardiovascular risk factors: advanced age (older than 55 for men, 65 for women), diabetes mellitus,dyslipidemia, hypertension, and sedentary lifestyle On JAVON or ARB: No On Statin: Yes- pitavastatin +zetia Current diet: well balanced and on average, 3-4 meals per day Current exercise: no regular exercise - limited due to arthralgias and recent back injury - they are checking blood glucose 4 or more times per day via CGM CGM: Dexcom G7 Dates: 07/22/24-08/01/24 Data:average glucose 245, GMI 9.2%, 27% in target range, 0% low Interpretation:generalized hyperglycemia, generally post-prandial and most prevalent from MN-11am from overnight snacking -Hypoawareness intact <70. Denies LOC associated with hypoglycemia or severe hypoglycemic events. Date of Last Eye Exam: 11/2023 Date of Last Foot Exam: 09/2023; denies sores/wounds; declines foot exam today What current meter are you using?: Accucheck Guide When was your last flu shot?: 12/2023 Last labs: 07/21/24 CMP, 07/07/23 TSH 0.77,lipids: LDL 51 The following portions of the chart were reviewed this encounter and updated as appropriate: Review of Systems Constitutional: Positive for activity change. HENT: Negative. Eyes: Negative. Respiratory: Negative. Cardiovascular: Negative. Gastrointestinal: Negative. Endocrine: See HPI Genitourinary: Negative. Musculoskeletal: Positive for arthralgias. Skin: Negative. Neurological: Negative. Psychiatric/Behavioral: Negative. Objective Physical Exam Vitals reviewed. Constitutional: Appearance: Normal appearance. HENT: Head: Normocephalic and atraumatic. Eyes: Extraocular Movements: Extraocular movements intact. Pupils: Pupils are equal, round, and reactive to light. Cardiovascular: Rate and Rhythm: Normal rate. Pulmonary: Effort: Pulmonary effort is normal. Abdominal: General: Abdomen is flat. Musculoskeletal: Cervical back: Normal range of motion and neck supple. Comments: Using w/c Skin: General: Skin is warm and dry. Neurological: General: No focal deficit present. Mental Status: She is alert and oriented to person, place, and time. Psychiatric: Mood and Affect: Mood normal. Behavior: Behavior normal. Thought Content: Thought content normal. Judgment: Judgment normal. Lab Review Glucose, Plasma (mg/dL) Date Value 07/21/2024 326 (H) 07/20/2024 97 07/15/2024 147 (H) POCT Hemoglobin A1C Date Value 04/26/2024 7.9 % 01/26/2024 8.0 % 10/22/2023 8.0 % 02/20/2021 8.1 % (A) 09/06/2020 8.5 % (A) 11/25/2019 7.7 Hemoglobin A1c (%) Date Value 05/24/2024 8.4 (H) CO2, Plasma (mmol/L) Date Value 07/21/2024 26 07/20/2024 27 07/15/2024 28 BUN, Plasma (mg/dL) Date Value 07/21/2024 18 07/20/2024 15 07/15/2024 16 Creatinine, Plasma (mg/dL) Date Value 07/21/2024 1.07 07/20/2024 1.04 07/15/2024 1.06 Assessment/Plan # Diabetes Mellitus Type 1, is uncontrolled. 05/24/24 A1c was 8.4% Adjust Toujeo to 7u twice a day for at least 5 days, if no improvement, can start taking all 14u atbedtime Continue Lispro 2-4u with food plus 1:50>150 correction (if experiences hypoglycemia, start correction with glucose readings >200 Continue using CGM to test BG 4+ times daily to adjust insulin doses for MDI Labs- up to date Encouraged yearly eye exam Encouraged daily foot care Discussed importance of lifestyle interventions for glycemic control (diet, exercise) Follow up: 3 months for chronic care management of DM Neuropathy - stable - no reported open areas - recommend daily foot checks Hyperlipidemia - Stable - lipid panel noted above - Continue on statin and zetia The following Diabetes education was reviewed: [x]SBGM to evaluate dose needs [x]Insulin coverage with carbohydrate intake [x]Site rotation [x] Exercise impact on glucose levels [x]Driving safety related to diabetes []Sick day management []Ketone testing [x]Over treatment of hypoglycemia [x] Hypoglycemia management [x]Call-in line use [x]Insulin pump pros and cons [x]Sensor home use []Pump class offerings [x]Sharon phenomena []Somogyi effect [] Alcohol related to diabetes [x]Benefits of written records [x]Pre-meal Bolusing [x]Daily foot care [x] Healthy diet and regular exercise []Long-term complications related to poor diabetes management [x] Injection timing related to changes in activity/exercise Time spent with patient does not include time spent interpreting CGM. I personally spent a total of 40 minutes on this encounter. This time includes face to face with patient, counseling and discussion and/or coordination of care. Electronically signed by: Anne-Marie Kolb APRN [facility] [address] [place]. [address] PHONE [phone] FAX: [phone] documented in this encounter Plan of Treatment Upcoming Encounters Date Type Department Care Team (Late st Contact Info) Description 09/08/2024 11:20 AM EDT Office Visit [facility] Internal Medicine [address] [place] [address] Alisa Kunz, [address] [place] [address] 10/07/2024 4:00 PM EDT Appointment Cardiac Imaging [address] [place] [address] 10/14/2024 4:00 PM EDT Office Visit [facility] [address] [place] [address] Lavern Shoemaker MD [address] [place] [address] 10/27/2024 1:40 PM EDT Office Visit [facility] Endocr[facility]ology [address] [place] [id number] Anne-Marie oKlb APRN [address] [facility] [address] [place] [address] 11/29/2024 10:20 AM EDT Office Visit [facility] Internal Medicine [address] [place] [address] Alisa Kunz DO [address] [place] [address] 02/02/2025 10:30 AM EST Office Visit [facility] [address] [place] [address] Sdaiq Osborne, SHANA [address] [place] [address] Scheduled Referrals Name Type Priority Associated Diagnoses Orde r Schedule Follow Up [facility] Outpatient Referral Routine Type 1 diabetes mellitus with hyperglycemia (CMS/HCC) Expected: 11/04/2024 (Approximate), Expires: 09/04/2025 documented as of this encounter Visit Diagnoses Diagnosis Type 1 diabetes mellitus with hyperglycemia (CMS/HCC)- Primary Neuropathy Mononeuritis of unspecified site Hyperlipidemia, unspecified hyperlipidemia type documented in this encounter Additional Health Concerns Assessment Noted Time PHQ-9 Depression Total Score: 8 07/22/19 25 9:23 AM EDT A fall risk assessment has been complete d for the patient 08/04/2024 10:41 AM EDT A Body Mass Index follow-up plan has been documented for the patient 08/04/2024 3:14 PM EDT documented as of this encounter Care Teams [employer] Team Member Relationship Specialty Start Date End Date Alisa Kunz DO [address] [facility] [address] [place] [address] PCP - General Internal Medicine 03/13/21 Kodi Bustos DO [address] [address] Surgeon Cardiothoracic Surgery 11/06/22 Sujit Arriola MD [address] [place] [address] Consulting Physician Pulmonary Disease 11/06/22 Sujti Reyes MD [address] [place] [address] Referring Physician 12/04/22 Zully Caldwell LPN [employer] [place] [address] [facility] Nurse 07/16/24 08/15/24 documented as of this encounter
--- OUTSIDE RECORDS SUMMARY | 2024-08-14 15:16 | XMS_ITS | Encounter Summary ---
Author Organization [facility] Address [address] [place] [address] Care Team Providers Care Sql Programmer Analyst Name Role Phone Alisa Kunz DO Primary Care Provider [phone] Kodi Bustos DO Unavailable [phone] Sujit Arriola MD Unavailable [phone] Sujit Reyes MD Unavailable [phone] Zully Caldwell LPN Unavailable Unavailable Ekaterina Gómez Unavailable Unavailable Reason for Referral * Home Health (Routine) - Authorized Specialty Diagnoses / Procedures [facility] Contact [facility] Services / Case Management Diagnoses Pleural effusion Kenneth James MD [address] [place] [address] Phone: tel: fax: Referral ID Status Reason Start Date Expiration Date Visits Requested Visits Authorized [id number] Authorized Specialty Services Required 08/23/2024 02/22/2026 999 999 Reason for Visit * Reason Comments Shortness of Breath * Auth/Cert (Routine) Specialty Diagnoses / Procedures Referred By Contac t Referred To Contact Diagnoses Shortness of breath Pleural effusion Acute on chronic congestive heart failure, unspecified heart failure type (CMS/HCC) Acute on chronic hypoxic respiratory failure Arben Ibarra MD [address] [place] [address] Phone: tel: fax: [facility] Inpatient [address] [place] [address] Phone: tel: Referral ID Status Reason Start Date Expiration Date Visits Re quested Visits Authorized [id number] 1 1 Encounter Details Date Type Department Care Team (Late st Contact Info) Description 08/14/2024 3:16 PM EDT - 08/24/2024 3:19 PM EDT Hospital Encounter [facility] [address] [place] [id number] Jackson Puente MD [address] [place] [address] Arben Ibarra MD [address] [place] [address] Doron Thayer MD [address] [place] [address] Kenneth James MD [address] [place] [address] Pleural effusion (Primary Dx); Acute on chronic congestive heart failure, unspecified heart failure type ([facility]/HCC); Shortness of breath; Systemic lupus erythematosus (SLE) in adult ([facility]) Discharge Disposition: Home or Self Care Social [...] week 08/30/2022 How often do you attend [facility] or advent services? 1 to 4 times per year 08/30/2022 Do you belong to any clubs o r organizations such as spiritism groups, unions, fraternal or athletic groups, or [...] Recorded Patient Health Questionnaire-2 Score 0 08/04/2024 [facility] - Occupational [...] place to sleep or slept in a mcfp (including now)? No 12/30/2023 PHQ-9 Answer Date [...] any time in the past 12 m [facility], were you homeless or living in a mcfp (including now)? No 05/27/2024 Humiliation, Afraid, Rape, [...] any time in the past 12 m [facility], were you homeless or living in a mcfp (including now)? No 08/25/2024 CAGE ASSESSMENT Answer [...] drink first t anselmo in the morning (EYE-EMD SPECIAL EDUCATION TEACHER) to steady your nerves or to get [...] tablet by mouth daily. 30 tablet 07/15/2024 gabapentin (Neurontin) 300 MG capsule Take 1 capsule by mouth 2 times a day. 60 capsule 08/24/2024 hydroxychloroquine (Plaquenil) 200 MG tabletIndications: Systemic lupus erythematosus (SLE) in adult ([facility]) Take 1 tablet by mouth daily. 90 tablet 1 07/21/2024 insulin glargine (Toujeo SoloStar) 300 UNIT/ML injection pen (1 UNIT DIAL)Indications:T ype 1 diabetes mellitus with hyperglycemia ([facility]) Inject 14 Units under the skin every morning. 4.5 mL 3 08/04/2024 insulin lispro (HumaLOG KWIKPEN) 100 UNIT/ML injection penIndications:Typ e 1 diabetes mellitus with hyperglycemia ([facility]) Inject 2-6 units before meals plus 1:60>150. [...] 1 diabetes mellitus with other specified complication ([facility]),Dyslipid emia Take 1 tablet by mouth 1 [...] with your warfarin pharmacist. 30 tablet 07/15/2024 mycophenolate (CellCept) 500 MG tabletIndications: Systemic lupus erythematosus (SLE) in adult ([facility]) Take 2 tablets by mouth 2 times a day. 120 tablet 08/24/2024 documented as of this encounter Miscellaneous Notes [...] and Address: Alisa Kunz DO [address] [address] Referring provider name and address: No referring [...] this encounter Procedures Cardiac catheterization Case Request Security Alarm Installer: Right heart catheterization Right heart catheterization (N/A) [...] Ellipta 200-62.5-25 MCG/ACT aerosol powder Generic drug: Jqljgarxwix-Ircmertzi-Kngzaa Inhale 1 puff 1 (one) time each [...] Your Medications These medications were sent to [facility] - [place], [place] - [address] [facility] [address] [facility] [address], [facility] [place] [address] gabapentin 300 MG capsule These medications were sent to [facility] - [place], [place] - [address], [facility] [address] mycophenolate 500 MG tablet Discharge Diagnosis Medical Problems Active and Resolved Hospital Problems Hospital Type 1 diabetes mellitus with other specified complication ([facility]) Overview Addendum 01/05/2024 2:49 PM by Alisa Kunz, DO - Complicated by neuropathy, nephropathy, retinopathy, currently struggling with hyperglycemia. Last A1c 8.0% in 10/2023. Follows closely with endocrinology. - On statin, ARB - Follows with Endocrinology. Wears Dexcom CGM. Acquired hypothyroidism Overview Addendum 01/05/2024 2:47 PM by Alisa Kunz DO - Last TSH 0.77 in 06/2023 - On levothyroxine 125 mcg daily. SLE (systemic lupus erythematosus) ([facility]) Overview Addendum 12/26/2022 9:45 AM by Alisa Kunz DO - Chronic, worsening. - Pleural effusion is believes to be from SLE. - Following closely with rheumatology for management. Pleural effusion Overview Addendum 01/09/2023 8:42 AM by Alisa Kunz DO - Chronic since 2020, now improved. [...] Center 09/08/2024 11:20 AM Alisa Kunz DO [facility] 10/07/2024 4:00 PM [facility] 1 E[facility]G [facility] 10/14/2024 4:00 PM Lavern Shoemaker MD [facility] 10/27/2024 1:40 PM Anne-Marie Kolb APRN ENDOTFBNBR [place] 11/29/2024 10:20 AM Alisa Kunz DO [facility] 02/02/2025 10:30 AM Sadi[facility] Osborne [facility] Test Results Pending At Discharge [...] Note Doron Felipe 74 y.o. female CSN: [id number] Admission: 08/14/2024 3:16 PM Primary Problem: Acute on chronic hypoxic respiratory failure Primary Special Effects Person: Primary Caregiver: Family Assistance Available at Discharge: Current Outpatient/Agency/Support Group: clinic(s), DME Availability of Care Givers (#Hours): 24 hours Family/Special Effects Person(s) Willingness Assessed to care for patient at home: Yes Family/Special Effects Person(s) Readiness Assessed to care for patient at [...] By: patient Follow-up: Debbie Parnell ([employer]igator) [phone] Follow up Provider for [facility]- Healthcare Discharge Transportation: Transportation Anticipated: family or [...] provided a number for Debbie Parnell ( [facility] [employer] Navigator) due to the concern that her family is unable to assist at times with transportation. Pt reported that she was comfortable with returning home, Pt reported knowing how to utilize [facility] Medicare transportation if needed and reported that her insurance provides certain amount transportation within a couple days after discharging from the hospital. No further SW services planned. Nathan Lima, HOP WEIGHER, MID LEVEL DEVELOPER * Delilah Ni - AlTk calderón - 08/24/2024 12:37 PM EDT Images from the original note were not included. [id number] Pleural Effusion The pleura is a smooth [...] fainting Last Reviewed Date: 2023 00:00:00 ?? [id number] [employer]. All rights reserved. This information is not intended as a substitute for professional medical care. Always follow your healthcare professional's instructions. * [facility] - Tk Hale - 08/24/2024 12:36 PM EDT Images from the original note were not included. [id number] Heart Failure What is heart failure? The [...] problems,housing, access to food, and child care giver. If you can?t get to medical appointments, [...] weekends. Last Reviewed Date: 2022 00:00:00 ?? [id number] [employer]. All rights reserved. This information is not intended as a substitute for professional medical care. Always follow your healthcare professional's instructions. * Progress Notes - Alex Escobar - 08/24/2024 9:46 AM EDT Physical Therapy Treatment Patient Name: Doron Felipe Today's Date: 08/24/2024 PT Discharge Recommendations: Home with 24 hour assistance, Outpatient PT, Outpatient OT, Home health PT, Home health OT Equipment Recommended: Patient owns appropriate equipment Subjective Patient agreeable to physical therapy. Participants in Care Family/Caregiver Present: No Apple Solutions Consultant: No Presentation Oxygen Oxygen Therapy: Supplemental oxygen [...] Pain Pain Score (0-10): 0 Delirium Screening Omnge Agitation Sedation Scale (RASS): Alert and calm Confusion Assessment Method-ICU (CAM-ICU/PCAM-ICU) Feature 3: Altered Level of Consciousness: Negative Therapeutic Activity (13 minutes) Patient participated in therapeutic activities focused on progressing functional mobility, functional strength, and safety, along with improving upright activity tolerance. TRIM INSTALLER provided cues to promote maximal independence and safety. Refer to sections below for further details. Bed Mobility Bed Mobility Interventions: Cues to initiate task. Bed Mobility Exam: Scooting/Bridging Level of [place]: Modified independence Physical/Nonphysical Assist: Supervision Assistive Device: Bed rails Bed Mobility Exam: Supine to Sit Level of [place]: Modified [place] Physical/Nonphysical Assist: HOB elevated, Set-up required Assistive Device: Bed rails Transfers Transfer Interventions: Provided cues for proper hand placement, BLE set-up, forward trunk leans toinitiate coming to stand, and safe descent to sit. Transfer Exam: Sit to stand Level of [place]: Stand-by assist Physical/Nonphysical Assist: Set-up required, Verbal Cues, Nonverbal cues (demo/gestures) Assistive Device: Walker, rolling Transfer Exam: Stand to Sit Level of [place]: Stand-by assist Physical/Nonphysical Assist: Set-up required, Verbal Cues, Nonverbal cues (demo/gestures) Assistive Device: Walker, rolling Transfer Exam: Bed to Chair/Chair to Bed Level of [place]: (deferred and wanted to sit EOB instead) [...] for proper return of demonstration of exercises. TRIM INSTALLER educated patient on HEP and encouraged her to perform 2-3 times daily. Access Code: [email or web address] URL: [email or web address] Date: 08/24/2024 Prepared by: Hugh Exercises - [...] agree with this document written by the adaptive physical education specialist for this patient on this date/time. * Consults - Sandy Figueroa RD - 08/24/2024 9:39 AM EDT Adult Nutrition Evaluation Note Doron Felipe 74 y.o. female CSN: [id number] Room/Bed 208/208C Nutrition evaluation type: follow-up Reason [...] Supplemental oxygen O2 Delivery Method: Nasal cannula May Coma Scale Score: 15 Jann Scale Score: [...] (131 lb 9.8 oz) BMI (Calculated): 22.58 [place] Body Weight (kg): 54.5 Percent [place] Body Weight: 112 Wt Readings from Last [...] Regular Adult Carbohydrate Restriction: Consistent CHO 2 (4888-3709 Damon, 80 g/meal) Adult Sodium Restriction: 2,000 mg Na Percent Meals Eaten (%): avg 81% (08/15-08/19) Diet Experience and Nutrition History: Diet Education Provided: Will monitor Pertinent home medications: Reviewed. Shinto needs: Nutrition Focused Physical Exam: Unable to [...] surgical intervention, WBAT. Heart disease Hepatitis B 1961 HL (hearing loss) Hypertension Hyperthyroidism 1960 Hypothyroidism [...] - Was ableto get patient in with [facility] ophthalmology right after our clinic appointment (where [...] CARDIAC PACEMAKER PLACEMENT N/A Pacemaker Placement from [employer] CARPAL TUNNEL RELEASE N/A Neuroplasty Decompression Median Nerve At Carpal Tunnel from [employer] CERVICAL BIOPSY W/ LOOP ELECTRODE EXCISION 2010 SECTION, CLASSIC 1976, 1979 SECTION, LOW TRANSVERSE N/A Section from [employer] COLONOSCOPY N/A Complete Colonoscopy from [employer] CORONARY ARTERY BYPASS GRAFT N/A CABG from [employer] EYE SURGERY N/A Eye Surgery from [employer] FRACTURE SURGERY SPINE SURGERY THORACENTESIS TOE SURGERY Left 02/07/2024 hematoma removal of upper skin on L big toe TONSILLECTOMY N/A Tonsillectomy from [employer] [3] Social History Tobacco Use Smoking status: [...] 125 mcg, Oral, q AM magic mouthwash diphen/lido/xcjc-yyp-qtfnyo, 15 mL, Swish & Spit, Before meals & nightly metoprolol succinate XL, 25 mg, Oral, Daily Tiotropium [place] Monohydrate, 2 puff, Inhalation, Daily AND mometasone- [...] only (use of w/c in community) Mobility [place] Independent gait with device History of Falls [...] shoulders and head. BED MOBILITY Level of [place] Rolling/Turning Modified independence Scooting/Bridging Modified independence Supine to Sit Modified [place] Sit to Supine Modified independence TRANSFERS Level of [place] Physical/Non-physical Assist AE Sit to Stand Stand-by [...] Weight shift posterior to midline Level of [place] Balance Support Interventions Static Sit Standby assist [...] in all ADL task (grooming, dressing and Toileting)within their given ability to promote continual b/l UE strengthening and continue to progress to ADL independence. Pt verbalized understanding. Level of [place] Interventions Feeding Independent, Setup Edge of bed [...] 08/16/24 2 weeks Post treatment OT educated staff certified nurse midwife on patient ADL assist requirements, physical assist [...] anticipated in 2-4 days Yvonne Carballo PharmD, [facility] Internal Medicine Clinical Pharmacist * [...] again as needed. Boby Rouse APRN Pager: [phone] * Progress Notes - Tk Hale - [...] Center 09/08/2024 11:20 AM Alisa Kunz, DO [facility] 10/07/2024 4:00 PM [facility] ECHO 1 E[facility]CHG [facility] 10/14/2024 4:00 PM Lavern Shoemaker MD [facility] 10/27/2024 1:40 PM Anne-Marie Kolb, SCHEDULING ASSISTANT ENDOTFBNBR [place] 11/29/2024 10:20 AM Alisa Kunz, [facility] 02/02/2025 10:30 AM Sadiq Osborne MBBS [facility] Tk Hale, MS4 Cosigned by Kenneth James MD at 08/23/2024 5:58 PM EDT Associated attestation - Kenneth James MD - 08/23/2024 5:58 PM EDT I saw and evaluated the patient with the medical/CALENDER OPERATOR/PA student. I discussed the case with the medical/CALENDER OPERATOR/PA student and agree with the findings and [...] Note Doron Felipe 74 y.o. female CSN: [id number] Admission: 08/14/2024 3:16 PM Primary Problem: Acute [...] recommending HH PT/OT, SW sent referrals via Careport on 08/23/2024. SW will continue to follow-up with pt's MD and care team on their progress and discharge plan. Nathan Lima, HOP WEIGHER, MID LEVEL DEVELOPER * Progress Notes - Yvonne Carballo PharmD [...] INR in 3-5 days Yvonne Carballo PharmD, [facility] Internal Medicine Clinical Pharmacist * [...] needs: None Family Contact: Ruthie Jamil John CecilioMadyson Follow-up: PCP Cardiology Pulmonology Rheumatology Endocrinology Future Appointments Date Time Provider Department Center 09/08/2024 11:20 AM Alisa Kunz, DO [facility] 10/07/2024 4:00 PM [facility] ECHO 1 E[facility]CHG [facility] 10/14/2024 4:00 PM Lavern Shoemaker MD [facility] 10/27/2024 1:40 PM Anne-Marie Kolb APRN ENDOTFBNBR [place] 11/29/2024 10:20 AM Alisa Kunz, [facility] 02/02/2025 10:30 AM Sadiq Osborne MBBS [facility] Tk Hale, MS4 Cosigned by Kenneth James MD at 08/22/2024 3:48 PM EDT Associated attestation - Kenneth James MD - 08/22/2024 3:48 PM EDT I saw and evaluated the patient with the medical/CALENDER OPERATOR/PA student. I discussed the case with the medical/CALENDER OPERATOR/PA student and agree with the findings and [...] in 3-5 days Yvonne Carballo PharmD, [facility] Internal Medicine Clinical Pharmacist * Care Plan [...] glucose monitoring * Progress Notes - Yvonne Carballo PharmD - 08/21/2024 7:43 AM EDT Antithrombosis [...] INR in 3-5 days Yvonne Carballo PharmD, [facility] Internal Medicine Clinical Pharmacist * [...] Ruthie JamilDoron Follow-up: PCP Cardiology Pulmonology Rheumatology Endocrinology Future Appointments Date Time Provider Department Center 09/08/2024 11:20 AM Alisa Kunz DO [facility] 10/07/2024 4:00 PM [facility] ECHO 1 E[facility]CHG [facility] 10/14/2024 4:00 PM Lavern Shoemaker MD [facility] 10/27/2024 1:40 PM Anne-Marie Kolb APRN [facility] [place] [facility] 11/29/2024 10:20 AM [facility] Kun[facility], [facility] 02/02/2025 10:30 AM Sadiq Osborne MBBS [facility] Tk Hale, MS4 Cosigned by Kenneth James MD at 08/20/2024 5:23 PM EDT Associated attestation - Kenneth James MD - 08/20/2024 5:23 PM EDT I saw and evaluated the patient with the medical/CALENDER OPERATOR/PA student. I discussed the case with the medical/CALENDER OPERATOR/PA student and agree with the findings and plan as documented. I personally performed the Examand Medical Decision Making. Severe exacerbation, progression, or side effect of treatment: Acute hyponatremia High risk: Drug therapy requiring intensive monitoring for toxicity: Warfarin - INR * Progress Notes - Macho Diaz - 08/20/2024 1:41 PM EDT PHYSICAL THERAPY TREATMENT PATIENT DATA Patient Name Doron Felpie Session Date 08/20/2024 Total Treatment Time 24 [...] only (use of w/c in community) Mobility [place] Independent gait with device History of Falls [...] to Physical Therapy treatment session. Visitors Present Apple Solutions Consultant (if applicable) OBJECTIVE PAIN No complaints of [...] level of function. BED MOBILITY Level of [place] Physical/Non- physical Assist Adaptive Equipment Utilized Rolling/ Turning Modified independence Bed rails Scooting/ Bridging Modified independence Bed rails Supine to Sit Modified [place] HOB elevated, Set-up required Bed rails Sit to Supine Modified independence Set-up required, HOB elevated Bed rails Interventions TRANSFERS Level of [place] Physical/Non- physical Assist Adaptive Equipment Utilized Sit to Stand Contact guard Set-up required, Verbal Cues, Nonverbal cues (demo/gestures) Walker, rolling Stand to sit Contact guard Set-up required, Verbal Cues, Nonverbal cues (demo/gestures) Walker, rolling Bed to Chair Toilet Transfer Shower Transfer Interventions AMBULATION Level of [place] Distance Adaptive Equipment Utilized Ambulation Contact guard [...] Weight shift posterior to midline Level of [place] Balance Support Interventions Static Sit Standby assist Feet supported, Right upper extremity support, Left upper extremity support Dynamic Sit Standby assisst Feet supported Static Stand Contact guard Right upper extremity support, Left upper extremity support (rolling walker) Dynamic Stand Contact guard Right upper extremity support, Left upper extremity support (rolling walker) Lateral weight shifts, Anterior/Posterior weight shifts, Reaching for objects STANDARDIZED ASSESSMENTS [facility] 6-Clicks Mobility Assessment Difficulty patient has turning [...] 3-5 steps with a railing?: A lot [facility] 6-Clicks Mobility Assessment Total : 19 ASSESSMENT [...] only (use of w/c in community) Mobility [place] Independent gait with device History of Falls [...] 13 Interventions Occupational therapist constructed a personal [email or web address] home exercises program for patient to assist [...] promote strengthening and maintaining flexibility. Access Code: [email or web address] URL: [email or web address] Date: 08/20/2024 Prepared by: Edgar Harris Exercises [...] - 10 reps BED MOBILITY Level of [place] Physical/Non-physical Assist Rolling/Turning Modified independence pt required [...] shifting the contralateral hip outward toward EOB andrepeat until feet reach the floor and pt is physically ABLE to bridge in supine to provide self assisted pressure relief to gluteal area to decrease skin irrigation that could cause pressure/decubitus ulcers. pt educated on importance of bridging every hour to provide pressure relief to gluteal area for self assisted decubitus ulcer prevention. pt verbalized understanding. . Supine to Sit Modified [place] HOB elevated, Set-up required Pt provided instruction [...] b/l LE onto bed. TRANSFERS Level of [place] Physical/Non-physical Assist AE Sit to Stand Contact [...] Weight shift posterior to midline Level of [place] Balance Support Interventions Static Sit Standby assist [...] to ADLindependence. Pt verbalized understanding. Level of [place] Interventions Feeding Independent, Setup Bed level Grooming [...] 08/16/24 2 weeks Post treatment OT educated staff certified nurse midwife on patient ADL assist requirements, physical assist levels required, specialized techniques required for transfers, patients current pain levels upon conclusion ofsession, patients demeanor and overall performance with therapy. Therapist then answered all question RN and RN tech staff had. Written by Edgar Harris on 08/20/24 * Consults - Rosario Quick, DEREK - 08/20/2024 1:04 PM EDT Adult Nutrition Evaluation Note Doron Felipe 74 y.o. female CSN: [id number] Room/Bed 208/208C Nutrition evaluation type: assessment Reason for evaluation: [facility] Hospital course: 74 yo female who is [...] Supplemental oxygen O2 Delivery Method: Nasal cannula May Coma Scale Score: 15 Jann Scale Score: [...] (134 lb 14.7 oz) BMI (Calculated): 23.15 [place] Body Weight (kg): 54.5 Percent [place] Body Weight: 112 Wt Readings from Last [...] Regular Adult Carbohydrate Restriction: Consistent CHO 2 (2327-4314 Damon, 80 g/meal) Adult Sodium Restriction: 2,000 mg Na Percent Meals Eaten (%): avg 81% (08/15-08/19) Diet Experience and Nutrition History: Diet Education Provided: Will monitor Pertinent home medications: Reviewed. Shinto needs: Nutrition Focused Physical Exam: Unable to [...] right leg 02/12/2024 CHF (congestive heart failure) ([facility]) Chronic respiratory failure 2019 Clotting disorder ([facility]) Congenital malformation COPD (chronic obstructive pulmonary disease) ([facility]) 2019 Coronary artery disease CTS (carpal tunnel syndrome) Dental disease Depression Diabetes mellitus type I ([facility]) Disease of thyroid gland Eczema Fracture of left proximal fibula 04/09/2021 - Left proximal fibula fracture on 02/2021 after a mechanical fall. - Established with orthopedic surgery, no surgical intervention, WBAT. Heart disease Hepatitis B 1960 HL (hearing loss) Hypertension Hyperthyroidism 1960 Hypothyroidism 1960 Infectious viral hepatitis Myocardial infarction ([facility]) Peripheral neuropathy Pneumonia 06/01 Post-menopausal bleeding 05/08/2021 [...] - Was ableto get patient in with [facility] ophthalmology right after our clinic appointment (where [...] CARDIAC PACEMAKER PLACEMENT N/A Pacemaker Placement from [employer] CARPAL TUNNEL RELEASE N/A Neuroplasty Decompression Median Nerve At Carpal Tunnel from [employer] CERVICAL BIOPSY W/ LOOP ELECTRODE EXCISION 2010 SECTION, CLASSIC 1977, 1979 SECTION, LOW TRANSVERSE N/A Section from [employer] COLONOSCOPY N/A Complete Colonoscopy from [employer] CORONARY ARTERY BYPASS GRAFT N/A CABG from [employer] EYE SURGERY N/A Eye Surgery from [employer] FRACTURE SURGERY SPINE SURGERY THORACENTESIS TOE SURGERY Left 02/07/2024 hematoma removal of upper skin on L big toe TONSILLECTOMY N/A Tonsillectomy from [employer] [3] Social History Tobacco Use Smoking status: [...] 125 mcg, Oral, q AM magic mouthwash diphen/lido/qhwz-yut-vjujrm, 15 mL, Swish & Spit, Before meals & nightly magnesium oxide, 400 mg, Oral, Daily metoprolol succinate XL, 25 mg, Oral, Daily Tiotropium [place] Monohydrate, 2 puff, Inhalation, Daily AND mometasone- [...] Patient Education : Neeru Carballo PharmD, [facility] Internal Medicine Clinical Pharmacist * Progress Notes - Boby Rouse, SCHEDULING ASSISTANT - 08/20/2024 9:59 AM EDT Subjective No [...] 08/17/2024 Will continue to drain to - [id number] suction. - Will repeat chest x-ray tomorrow morning and consider chest tube removal. - Incentive Spirometry and mobilize/ out of bed as tolerated. This patient and plan of care has been discussed with Dr. Edward Bojorquez. Boby Rouse APRN Pager: [phone] * Nursing Note - Sujit Figueroa RN [...] Department Center 09/08/2024 11:20 AM Alisa Kunz [facility] 10/07/2024 4:00 PM [facility] E[facility] 1 E[facility]G [facility] 10/27/2024 1:40 PM Anne-Marie Kolb APRN ENDOYOSEF [facility] 11/29/2024 10:20 AM Alisa Kunz DO [facility] 02/02/2025 10:30 AM Sadiq Osborne [facility] [place] MS4 Cosigned by Kenneth James MD at 08/19/2024 3:22 PM EDT Associated attestation - Kenneth James MD - 08/19/2024 3:22 PM EDT I saw and evaluated the patient with the medical/CALENDER OPERATOR/PA student. I discussed the case with the medical/CALENDER OPERATOR/PA student and agree with the findings and [...] to follow patient's clinical progress daily. Candace Bryan PharmD, [facility] Clinical Pharmacist - Internal Medicine Available via SecureRolePointt * Procedures - Boby Rouse APRN - [...] below level ofpatients chest and drain to -[id number] suction. After this intended time plan to place chest tube to -[id number] suction . Complications: None Recommendation Follow up chest x-ray tomorrow morning Avoid NSAIDS and steroids Drain to -[id number] suction * Progress Notes - Yue Zaragoza - 08/19/2024 10:48 AM EDT Case Management Adult Progress Note Doron Felipe 74 y.o. female CSN: [id number] Admission: 08/14/2024 3:16 PM Primary Problem: Acute [...] HFpEF, T1DM, SLE on Plaquenil followed by rheum , chronic hypoxic respiratory failure requiring 2-4 L/min at baseline and recurrent pleural effusions who initially presented to the [facility] with a chief complaint of progressively worsening [...] if further questions arise. Edgar Zaragoza MD [facility] * Progress Notes - Macho Diaz - [...] only (use of w/c in community) Mobility [place] Independent gait with device History of Falls [...] to Physical Therapy treatment session. Visitors Present [employer] Consultant (if applicable) OBJECTIVE PAIN Pt notes discomfort [...] level of function. BED MOBILITY Level of [place] Physical/Non- physical Assist Adaptive Equipment Utilized Rolling/ Turning Independent Bed rails Scooting/ Bridging Stand-by assist (to scoot towards EOB) Verbal Cues Supine to Sit Stand-by assist Verbal Cues Sit to Supine Stand-by assist Verbal Cues Interventions TRANSFERS Level of [place] Physical/Non- physical Assist Adaptive Equipment Utilized Sit to Stand Contact guard Set-up required, Verbal Cues, Nonverbal cues (demo/gestures) Walker, rolling Stand to sit Contact guard Set-up required, Verbal Cues, Nonverbal cues (demo/gestures) Walker, rolling Bed to Chair Toilet Transfer Shower Transfer Interventions AMBULATION Level of [place] Distance Adaptive Equipment Utilized Ambulation Contact guard [...] Weight shift posterior to midline Level of [place] Balance Support Interventions Static Sit Standby assist Feet supported, Right upper extremity support, Left upper extremity support Dynamic Sit Standby assisst Feet supported Static Stand Contact guard Right upper extremity support, Left upper extremity support (via RW) Dynamic Stand Contact guard Right upper extremity support, Left upper extremity support (RW) STANDARDIZED ASSESSMENTS [facility] 6-Clicks Mobility Assessment Difficulty patient has turning [...] 3-5 steps with a railing?: A lot [facility] 6-Clicks Mobility Assessment Total : 17 ASSESSMENT [...] and LRAD with modified RPE remaining below 10 08/16/24 2 weeks PT Goal 4: Patient will be independent with understanding of PT discharge recommendations 08/16/24 2 weeks Written by Macho Diaz on 08/18/24 * Progress Notes - Yvonne Carballo, PharmD - 08/18/2024 1:12 PM EDT Antithrombosis [...] No Patient Education : Neeru Carballo, PharmD, [facility] Internal Medicine Clinical Pharmacist * [...] only (use of w/c in community) Mobility [place] Independent gait with device History of Falls [...] Visitors Present No OBJECTIVE PAIN Pt reports 05/17, chest tube site pain at rest and reports mild posterior headache with functional endurance/mobility task during session. RN notified reporting patient is currently on track for medication schedule. DELIRIUM SCREENING Omnge Agitation Sedation Scale (RASS): Alert and calm [...] shoulders and head. BED MOBILITY Level of [place] Physical/Non-physical Assist Rolling/Turning Independent pt is physically [...] b/l LE onto bed. TRANSFERS Level of [place] Physical/Non-physical Assist AE Sit to Stand Contact [...] for slow decent to sitting surface. W tish rolling BALANCE pt was able to sit [...] Weight shift posterior to midline Level of [place] Balance Support Interventions Static Sit Standby assist [...] to ADLindependence. Pt verbalized understanding. Level of [place] Interventions Feeding Independent, Setup Bed level Grooming [...] 08/16/24 2 weeks Post treatment OT educated staff certified nurse midwife on patient ADL assist requirements, physical assist [...] discharge needs: None Family Contact: Ruthie Jamil Doron Felipe Follow-up: PCP Cardiology Pulmonology Rheumatology Future Appointments Date Time Provider Department Center 08/19/2024 1:30 PM [facility] 09/08/2024 11:20 AM Alisa Kunz DO [facility] 10/07/2024 4:00 PM [facility] 1 [facility] 10/27/2024 1:40 PM Anne-Marie Kolb, SCHEDULING ASSISTANT [facility] 11/29/2024 10:20 AM Alisa Kunz DO [facility] 02/02/2025 10:30 AM Sadiq Osborne MBBS [facility] Associated attestation - Kenneth James MD - 08/18/2024 5:37 PM EDT I saw and evaluated the patient with the medical/CALENDER OPERATOR/PA student. I discussed the case with the medical/CALENDER OPERATOR/PA student and agree with the findings and plan as documented. I personally performed the Examand Medical Decision Making. Acute threat to life/bodily function: Acute hypoxic respiratory failure. High risk: Drug therapy requiring intensive monitoring for toxicity: Lasix, monitoring urine outputand electrolytes. * Progress Notes - Boby Rouse, YAMILET - 08/18/2024 8:46 AM EDT Subjective No [...] 08/17/2024 Will continue to drain to - [id number] suction. - Will repeat chest x-ray tomorrow morning and plan on right talc slurry chemical pleurodesis tomorrow 08/19/2024 at bedside. This patient and plan of care has been discussed with Dr. Edward Bojorquez. Boby Rouse APRN Pager: [phone] * Pre-Sedation Documentation - Edgar Zaragoza MD [...] been discussed with the patient and/or their access services representative. All questions answered and they agree [...] hypoglycemia with patient * Care Plan - Eakterina Pennington - 08/18/2024 2:09 AM EDT Problem: [...] pleural effusions who initially presented to the [facility] with a chief complaint of progressively worsening shortness for breath. . Cardiology is being consulted for appropriateness of hemodynamic assessment with right heart catheterization. She has required therapeutic thoracentesis periodically. She follows with cardiology through [facility] as an outpatient last seen on 02/17/2024. [...] not a thrombus. Patient follows closely with [facility] EP cardiology who would like patient to [...] Every morning ezetimibe (ZETIA) 10 mg, Nightly Cxhmswrmmny-Hwfdsepyr-Jcfuih (Trelegy Ellipta) 200-62.5-25 MCG/ACT aerosol powder 1 [...] y.o. female who initially presented to the [facility] for shortness of breath associated with pleural effusions, and Cardiology is being consulted for recommendations and management of coordination of the RHC. Patient has diuresed well. Chest tube placement. It is totally reasonable to obtain RHC to see if evaluated filling pressures are contributing to the pleural space fluid accumulation more than previously thought. Recommendations/Plan: - maintain accurate I/Os - NPO at PR - plan for in and out RHC on 08/18/2024 - continue diuresis The following cardiovascular risk factors and co-morbidities complicates the management of these conditions: Fluid & Electrolyte Disorders - borderline controlled with the following disturbances: hypokalemia and hypomagnesemia This consult will be staffed with the following attending physician: Dr Zamora. Please page the on-call user support analyst with any further questions. I spent 30 minutes performing the following components of the encounter (on the day of the encounter): reviewing History, examining the patient, reviewing imaging and/or labs, Independently interpreting echocardiogram, ECG and/or other imaging results, ordering tests or procedures, counseling the patient and family/caregiver, and communicating with other health transition of care specialist. Greater than 50% of the time spent [...] or viral conjunctivitis vs. Scleritis. - Needs [facility] eye exam. - Was ableto get patient in with [facility] ophthalmology right after our clinic appointment (where [...] CARDIAC PACEMAKER PLACEMENT N/A Pacemaker Placement from [employer] CARPAL TUNNEL RELEASE N/A Neuroplasty Decompression Median Nerve At Carpal Tunnel from [employer] CERVICAL BIOPSY W/ LOOP ELECTRODE EXCISION 2010 SECTION, CLASSIC 1976, 1979 SECTION, LOW TRANSVERSE N/A Section from [employer] COLONOSCOPY N/A Complete Colonoscopy from [employer] CORONARY ARTERY BYPASS GRAFT N/A CABG from [employer] EYE SURGERY N/A Eye Surgery from [employer] FRACTURE SURGERY SPINE SURGERY THORACENTESIS TOE SURGERY Left 02/07/2024 hematoma removal of upper skin on L big toe TONSILLECTOMY N/A Tonsillectomy from [employer] Cosigned by Brenden Zamora MD at 08/19/2024 2:34 PM EDT Associated attestation - Brenden Zamora MD - 08/19/2024 2:34 PM EDT I saw and evaluated the patient with the resident/fellow. I discussed the case with the resident/fellow and agree with the findings and plan as documented. Jeff Zamora MD * Progress Notes - Yvonne Carballo, PharmD - 08/17/2024 1:20 PM EDT Antithrombosis [...] No Patient Education : Neeru Carballo PharmD, [facility] Internal Medicine Clinical Pharmacist * [...] Center 08/19/2024 1:30 PM Lavern Shoemaker MD [facility] 09/08/2024 11:20 AM Alisa Kunz DO [facility] 10/07/2024 4:00 PM [facility] ECHO 1 E[facility]CHG [facility] 10/27/2024 1:40 PM Anne-Marie Kolb, YAMILET [facility] [place] 11/29/2024 10:20 AM [facility] Kun[facility], [facility] 02/02/2025 10:30 AM Sadiq Osborne MBBS [facility] Associated attestation - Kenneth James MD - 08/17/2024 4:37 PM EDT I saw and evaluated the patient with the medical/CALENDER OPERATOR/PA student. I discussed the case with the medical/CALENDER OPERATOR/PA student and agree with the findings and [...] Dr. Edward Bojorquez. Boby Rouse APRN Pager: [phone] * Procedures - Boby Rouse APRN - [...] to water seal overnight then switch to -[id number] suction tomorrow morning. Hold NSAIDS and steroids [...] Center 08/19/2024 1:30 PM Lavern Shoemaker MD [facility] 09/08/2024 11:20 AM Alisa Kunz, DO [facility] 10/07/2024 4:00 PM [facility] ECHO 1 E[facility]CHG [facility] 10/27/2024 1:40 PM Anne-Marie Kolb, YAMILET END[facility] [place] 11/29/2024 10:20 AM Alisa Kunz, [facility] 02/02/2025 10:30 AM Sadiq Osborne [facility] Associated attestation - Doron Thayer MD - 08/16/2024 6:59 PM EDT I saw and evaluated the patient with the medical/CALENDER OPERATOR/PA student. I discussed the case with the medical/CALENDER OPERATOR/PA student and agree with the findings and [...] cath while inpatient. * Consults - Boby Roues APRN - 08/16/2024 12:37 PM EDTAssociated Order(s): [...] >1:1280, with negative results for MPO and GA-3. She is on plaqunil and MMF. 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 Results Review {Vanishing Link Review Results :[id number] I have reviewed the latest lab and [...] discussed with Dr. Edward Bojorquez. Boby Rouse, SCHEDULING ASSISTANT Pager: [phone] [1] Current Facility-Administered Medications Medication Dose Route [...] q8h Arben Ibarra MD 40 mg at 08/16/24822 gabapentin (Neurontin) capsule 300 mg 300 mg Oral BID Arben Ibarra MD 300 mg at 08/16/24822 hydroxychloroquine (Plaquenil) tablet 200 mg 200 mg [...] q AM Arben Ibarra MD 125 mcg at08/16/24516 melatonin tablet 6 mg 6 mg Oral [...] admin instructions Arben Ibarra MD * Yvonne Potter PharmD - 08/16/2024 10:47 AM EDT Images from the original note were not included. [id number] Warfarin Brand Name(s): Coumadin??, Jantoven??; also available [...] doctor or pharmacist will give you the criminal court judge's patient information sheet (Medication Guide) when you begin treatment with warfarin and each time you refill your prescription. Read the information carefully and ask your doctor or pharmacist if you have any questions. You can also visit the Food and Drug Administration (FDA) website (https://www.fda.gov/downloads/Drugs/DrugSafety/sed838826.pdf) or the criminal court judge's website to obtain the Medication Guide. Talk [...] Echinacea, garlic, Ginkgo biloba, ginseng, goldenseal, and [place]'s wort; omeprazole (Prilosec); famotidine (Pepcid AC); aspirin [...] amounts of vitamin K-containing food on a feoe-wz-tqfv basis. Do not eat large amounts of [...] of all of the prescription and nonprescription (vksy-auo-rmcisvy) medicines you are taking, as well as [...] or pharmacist about specific clinical use. The [place] [employer] represents that the information provided hereunder was formulated with a reasonable standard of care, and in conformity with professional standards in the field. The [place] [employer] makes no representations or warranties, express or implied, including, but not limited to, any implied warranty of merchantability and/or fitness for a particular purpose, with respect to such information and specifically disclaims all such warranties. Users are advised that decisions regarding drug therapy are complex medical decisions requiring the independent, informed decision of an appropriate health customer care coordinator, and the information is provided for informational purposes only. The entire monograph for a drug should be reviewed for a thorough understanding of the drug's actions, uses and side effects. The [place] [employer] does not endorse or recommend the use of any drug.The information is not a substitute for medical care. AHFS?? Patient Medication Information?. ?? Copyright, 2023. The [place] [employer]??, [address], [address], [place], [place]. All Rights Reserved. Duplication for commercial use must be authorized by [facility]. Selected Revisions: August 22, 2016. AHFS?? Patient Medication Information?. ?? Copyright, 2024 * Progress Notes - Yvonne Carballo PharmJoel - 08/16/2024 10:46 AM EDT Antithrombosis Stewardship Pharmacist to Dose Warfarin Management Doron Felipe is a 74 y.o. female who has been consulted for warfarin dosing and monitoring. Date INR Dose 7 2.6 hold for thoracentesis 8 2.2 hold for thoracentesis 9 2.2 hold for thoracentesis Current Hematologic Labs [...] : No Patient Education : Incomplete Yvonne Carballo, IrajD, [facility] Internal Medicine Clinical Pharmacist * Progress Notes - Deangelo Mak Urszula - 08/16/2024 9:33 AM EDT PHYSICAL THERAPY [...] apnea, obstructive, Stroke (CMS/HCC), Systemic lupus erythematosus, unspecified (CMS/HCC), Varicella, and Visual impairment. Past Surgical History Patient has a past surgical history that includes Tonsillectomy (N/A); Cardiac pacemaker placement (N/A); Colonoscopy (N/A); Coronary artery bypass graft (N/A); section, low transverse (N/A); Carpal tunnel release (N/A); Eye surgery (N/A); Adenoidectomy; section, classic (1976, 1979); Fracture surgery; Spine surgery; Cervical biopsy w/ loop electrode excision (2010); Breast biopsy (Right, 2014); Adrenal gland surgery; Thoracentesis; Ankle fracture surgery; and Toe Surgery (Left, 02/07/2024). PRECAUTIONS Weight Bearing Precautions (if applicable) ROM Restrictions (if applicable) Medical Precautions Yes Medical Precautions: Fall precautions SUBJECTIVE PARTICIPANTS IN CARE Visitors Present No Subjective Report Pt has NOT been: * Ambulating hallway distances * Ambulating in-room distances * Transferring Bed <> Chair since being admitted to the hospital. [employer] Consultant (if applicable) HOME LIVING/SET-UP Lives With Spouse [...] only (use of w/c in community) Mobility [place] Independent gait with device History of Falls [...] Multi-Step Commands: Consistently Method of Communication Verbal ([place], hearing aids not present) Additional Observations MOTOR [...] Treatment Minutes 23 BED MOBILITY Level of [place] Physical/Non- physical Assist Adaptive Equipment Utilized Scooting/ Bridging Stand-by assist (to scoot towards EOB) Verbal Cues Bed rails Supine to Sit Stand-by assist Verbal Cues Bed rails Sit to Supine Stand-by assist Verbal Cues Bed rails Interventions PT cued for BLE sequencing toward edge of bed along with self monitoring of symptoms with positional changes. TRANSFERS Level of [place] Physical/Non- physical Assist Adaptive Equipment Utilized Sit [...] Weight shift posterior to midline Level of [place] Balance Support Interventions Static Sit Standby assist Feet supported, Right upper extremity support, Left upper extremity support Dynamic Sit Standby assisst Feet supported Static Stand Contact guard Right upper extremity support, Left upper extremity support (via RW) Dynamic Stand Contact guard Right upper extremity support, Left upper extremity support (RW) AMBULATION Level of [place] Distance Adaptive Equipment Utilized Ambulation Contact guard assist 50ft Rolling walker Comments Patient ambulates with functional dawn and forward flexed posture. PT cued for upright posture and educated on paced activity and therapeutic rest breaks with increased fatigue. Patient reported 9/10 modified RPE following ambulation. Vitals stable throughout. PT presence was necessary for: * monitoring patient vital sign stability STANDARDIZED ASSESSMENTS [facility] 6-Clicks Mobility Assessment Difficulty patient has turning [...] 3-5 steps with a railing?: A little [facility] 6-Clicks Mobility Assessment Total : 20 ASSESSMENT [...] at 1:01 PM. * Progress Notes - Abdelrahman Nanette L - 08/16/2024 9:32 AM EDT OCCUPATIONAL THERAPY [...] congestive heart failure, unspecified heart failure type ([facility]) 3. Shortness of breath Procedures Past Medical History Patient has a past medical history of 2019-nCoV acute respiratory disease (05/07/2022), Alcohol use, Allergic (1972), Anemia, Anxiety, Arthritis, Asthma, Cellulitis (02/13/2024), Cellulitis of right leg (02/12/2024), CHF (congestive heart failure) ([facility]), Chronic respiratory failure (2019), Clotting disorder ([facility]), Congenital malformation, COPD (chronic obstructive pulmonary disease) ([facility]/H[facility]) (2018), Coronary artery disease, CTS (carpal tunnel syndrome), Dental disease, Depression, Diabetes mellitus type I ([facility]), Disease of thyroid gland, Eczema, Fracture of left proximal fibula (04/09/2021), Heart disease, Hepatitis B (1960), HL (hearing loss), Hypertension, Hyperthyroidism (1960), Hypothyroidism (1960), Infectious viral hepatitis, Myocardial infarction ([facility]/HCC), Peripheral neuropathy, Pneumonia (06/01), Post-menopausal bleeding (05/08/2021), 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 Past Surgical History [...] only (use of w/c in community) Mobility [place] Independent gait with device History of Falls [...] Multi-Step Commands: Consistently Method of Communication Verbal ([place], hearing aids not present) VISION Baseline Vision [...] Touch Sensation Intact BED MOBILITY Level of [place] Physical/Non-physical Assist Adaptive Equipment Utilized Scooting/ Bridging Stand-by assist (to scoot towards EOB) Verbal Cues Bed rails Supine to Sit Stand-by assist Verbal Cues Bed rails Sit to Supine Stand-by assist Verbal Cues Bed rails TRANSFERS Level of [place] Physical/Non-physical Assist Adaptive Equipment Utilized Sit to [...] Weight shift posterior to midline Level of [place] Balance Support Static Sit Standby assist Feet supported, Right upper extremity support, Left upper extremity support Dynamic Sit Standby assisst Feet supported Static Stand Contact guard Right upper extremity support, Left upper extremity support (via RW) Dynamic Stand Contact guard Right upper extremity support, Left upper extremity support (via RW) STANDARDIZED ASSESSMENTS [facility] [address] [facility] 6-Click Daily Activities Help from Other: Don/Doff Regular Lower Body Clothings: Little Help From Other: Bathing: Little Help From Other: Toileting: Little Help From Other: Don/Doff Upper Body Clothings: Little Help From Other: Grooming: Little Help From Other: Eating Meals: None [facility] [address] 6 Click - Daily Activities Score: 19 [...] needed areas of treatment space. Level of [place] Interventions Grooming SBA, Setup Edge of bed [...] and each exercise reviewed. Pt verbalized understanding. [email or web address] Access Details (if appropriate) Access Code: [email or web address] URL: [email or web address] Date: 08/16/24 Exercises Included - Seated Shoulder [...] Case Management Adult Initial Progress Note Doron Hayden Matteo 74 y.o. female CSN: [id number] Admission: 08/14/2024 3:16 PM Primary Problem: Acute on chronic hypoxic respiratory failure Staff Forester reviewed chart and spoke with patient via phone to complete this Initial Case Management Assessment. PCP: Alisa Kunz DO Emergency Contact: Extended Emergency Contact Information Primary Emergency Contact: Ruthie Jamil Mobile Relation: Daughter Preferred language: Wol[place] [employer] Consultant needed? No Secondary Emergency Contact: Doron Felipe Address: [address] Mobile Relation: Spouse Insurance: Primary Visit Coverage Payer Plan Sponsor Code Group Number Group Name [facility] MEDICARE [facility] MEDICARE REPLACEMENT [id number] Primary Visit Coverage Subscriber Subscriber ID Subscriber Name Subscriber SSN Subscriber Address [id number] DORON FELIPE [id number] [place] [address] Patient information: Primary Caregiver: Family Support System: Immediate family, Extended family Daily Living Activities: Functional Status: Maximum assistance Living Arrangements: Family Type of Residence: Private residence, Single Level [address] [facility] [address] Smoker in the Home?: No Current DME: Equipment Currently Used at Home: wheelchair, manual, walker, rolling, oxygen, cane, straight, commode chair, shower chair Current DME Provider: Pt reported having HH previous with [facility]. Pt utilize [facility] for ;[phone] Income Information: Income Source: Retired Income/Expense Information: [...] having HH previous with [facility]. Pt utilize [facility] for [phone] Living Will/Advance Directive/Power of Turner Machine Operator /Guardian: Unable to assess: No Have you reviewed your Advance Directive and is it valid for this stay?: Yes Advance Directive: Patient has advance directive, copy in chart Type of Healthcare Directive: Durable power of personal injury attorney for health care Information Provided on Healthcare Directives: No Pre-existing DNR/DNI Order: No Patient Requests Assistance: No Additional Comments: SW introduced himself and CM role. Pt confirmed demographics, PCP, EC and insurance on face sheet are accurate. Pt lives at [address] [place], [place] [address]sofiya Mcallister [place], [place] with her Doron Felipe. Pt reported [...] 02 at home that is provided by [employer]. [employer] number is [phone]/Address: [address] [place], [place]. Pt reported that she pays for Private Caregiver. Pt reported private caregiver name is Mrs. Quick.Pt reported that she utilize [facility] for HH services and reported to SW that she would like to utilize them again if needed. [facility] - Karen ODALYS - [address] [facility] [address] Pt's spouse /family to provide transportation upon discharge. Pt reported no issues with Housing, Food, Utilities, Transportation or Safety issues at this time. Pt reported their highest level of education is College. SW will continue to follow and assist as needed. DEVONTE Morales, MID LEVEL DEVELOPER * Progress Notes - Tk Hale - [...] Center 08/19/2024 1:30 PM Lavern Shoemaker MD [facility] 09/08/2024 11:20 AM Alisa Kunz DO [facility] 10/07/2024 4:00 PM [facility] 1 [facility] 10/27/2024 1:40 PM Anne-Marie Kolb APRN ENDOTFALEJANDRA [facility] 11/29/2024 10:20 AM Alisa Kunz DO [facility] 02/02/2025 10:30 AM Sadiq Osborne MBBS [facility] Associated attestation - Doron Thayer MD - 08/15/2024 6:38 PM EDT I saw and evaluated the patient with the medical/CALENDER OPERATOR/PA student. I discussed the case with the medical/CALENDER OPERATOR/PA student and agree with the findings and [...] Note Doron Felipe 74 y.o. female CSN: [id number] Admission: 08/14/2024 3:16 PM Primary Problem: Acute [...] their progress and discharge plan. Nathan Lima, HOP WEIGHER, MID LEVEL DEVELOPER * Hospital Course - Tk Hale - 08/15/2024 8:53 AM EDT Doron Felipe is a 74-year-old woman with a PMH significant for SLE on Plaquenil followed by [facility], chronic bl pleural effusions, chronic hypoxic respiratory [...] Wednesday 08/16. Dr. Ibarra ok w/ stopping [facility]. -D/w patient and confirmed with patient her [...] thoracentesis on Wednesday 08/16. ok w/ stopping [facility]. -D/w patient and confirmed with patient her [...] 08/14/2024 5:27 PM EDTAssociated Order(s): Consult to [facility] Consult to [facility] Consult performed by: Arben Ibarra MD Consult ordered by: Jackson Puente MD Reason for consult: Acute on chronic hypoxia, recurrent pleural effusion Chief complaint Shortness of breath worse than baseline History Of Present Illness Doron Felipe is a 74-year-old woman with a past medical history significant for systemic lupuserythematosus on Plaquenil followed by [facility], chronic/recurrent pleural effusion secondary to lupus, [...] Orders (From admission, onward) Start Ordered 08/14/24 1712 Adult diet Diet texture: Regular; Sodium restriction: 2,000 mg Na Diet effective now References: IDDSI Diet Texture Guide Question Answer Comment Diet texture Regular Sodium restriction: 2,000 mg Na 08/14/24 1711 Code Status Full Code Arben Ibarra MD [facility] [1] Social History Tobacco Use [...] Complaint Patient presents with Shortness of Breath [facility] NOTE Doron Felipe is a 74 y.o. [...] responsibility for this patient after transfer to [facility] ED from [facility]. I personally performed my own history, ROS, and physical. I agree with the above [facility] documentation with the following additions/exceptions: Doron Felipe [...] chest pain, n/v. 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 used: No Patient History Past Medical History[1] [...] Ordering Provider 08/14/24 1447 [facility] JEFF[facility] 08/14/24 1447 Magnesium [facility] JEFFERS 08/14/24 1447 Troponin now and 120 min STAT [facility] JEFFERS 08/14/24 1447 CBC w/diff STAT Final result VAHE JEFFERS 08/14/24 1447 BNP [facility] JEFFERS 08/14/24 1447 XR Chest 1 View [facility] imaging [facility] JEFFERS 08/14/24 1427 EKG [...] right leg 02/12/2024 CHF (congestive heart failure) ([facility]) Chronic respiratory failure 2019 Clotting disorder ([facility]) Congenital malformation COPD (chronic obstructive pulmonary disease) ([facility]) 2018 Coronary artery disease CTS (carpal tunnel syndrome) Dental disease Depression Diabetes mellitus type I ([facility]) Disease of thyroid gland Eczema Fracture of left proximal fibula 04/09/2021 - Left proximal fibula fracture on 02/2021 after a mechanical fall. - Established with orthopedic surgery, no surgical intervention, WBAT. Heart disease Hepatitis B 1960 HL (hearing loss) Hypertension Hyperthyroidism 1960 Hypothyroidism 1960 Infectious viral hepatitis Myocardial infarction ([facility]) Peripheral neuropathy Pneumonia 06/01 Post-menopausal bleeding 05/08/2021 - Isolated episode of vaginal spotting in early 2021, no recurrence. Was evaluated with OBGYN in 10/2021, no intervention at this time, if recurrence of bleeding will likely require endometrial biopsy. 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 Scleritis. - Needs THOMPSON eye exam. - Was ableto get patient in with [facility] ophthalmology right after our clinic appointment (where [...] CARDIAC PACEMAKER PLACEMENT N/A Pacemaker Placement from [facility] CARPAL TUNNEL RELEASE N/A Neuroplasty Decompression Median Nerve At Carpal Tunnel from [facility] CERVICAL BIOPSY W/ LOOP ELECTRODE EXCISION 2010 SECTION, CLASSIC 1976, 1979 SECTION, LOW TRANSVERSE N/A Section from [facility] COLONOSCOPY N/A Complete Colonoscopy from [facility] CORONARY ARTERY BYPASS GRAFT N/A CABG from [facility] EYE SURGERY N/A Eye Surgery from [facility] FRACTURE SURGERY SPINE SURGERY THORACENTESIS TOE SURGERY Left 02/07/2024 hematoma removal of upper skin on L big toe TONSILLECTOMY N/A Tonsillectomy from [facility] [3] Family History Problem Relation Name Age of Onset Conversions - Other Mother gracy stamper alfredito kelin Goiter (Diffuse Nontoxic) Heart disease Mother gracy stamper alfredito kelin Hypertension Mother gracy stamper alfredito kelin Stroke Mother gracy stamper alfredito kelin COPD Mother gracy stamper alfredito kelin Alpha-1 antitrypsin deficiency Mother gracy stamper alfredito kelin Arthritis Father Doron Henriquezer Hypercholesterolemia Father Doron Antunez Obesity Father Doron Henriquezer COPD Father Doron Antunez Alcohol abuse Father Doron Antunez Diabetes Sibling Cancer Other Doron E Alfredito Conversions - Other Other Goiter (Diffuse Nontoxic) Heart disease Other Gracy Marry Stamper [place] Kelin [4] Tobacco Use Smoking status: Never [...] Description 09/08/2024 11:20 AM EDT Office Visit [facility] Internal Medicine [address] [place] [address] Alisa Kunz DO [address] [place] [phone] 10/07/2024 4:00 PM EDT Appointment Cardiac Imaging [address] [place] [address] 10/14/2024 4:00 PM EDT Office Visit [facility] Medicine Specialties [address] [place] [phone] Lavern Shoemaker MD [address] [place] [address] 10/27/2024 1:40 PM EDT Office Visit [facility] Endocrinology [address] [place] [phone] Anne-Marie Kolb L, SCHEDULING ASSISTANT [address] [place] [phone] 11/29/2024 10:20 AM EDT Office Visit [facility] Internal Medicine [address] [place] [address] Alisa Kunz, DO [address] [place] [phone] 02/02/2025 10:30 AM EST Office Visit [facility] Medicine Specialties [address] [place] [phone] Sadiq Osborne, SHANA [address] [place] [address] Pending Results Name Type Priority Associated Diagnoses Date /Time AFB Culture and Acid Fast Stain - Pleural Right Microbiology Routine 08/17/2024 10:57 AM EDT Scheduled Referrals Name Type Priority Associated Diagnoses Order Schedule Discharge Ambulatory referral to NON Home Health Outpatient Referral Routine Pleural effusion 1 Occurrences [...] POCT glucose meter (08/24/2024 11:36 AM EDT) [facility] POCT Glucose 263(H) 74 - 99 mg/dL [...] 08/24/2024 11:44 AM EDT [facility] Card Tape Converter Operator ID Partha Zhu 08/25/19 11:44 AM EDT HEALTHCARE LAB Device ID [id number] 08/24/2024 11:44 AM EDT [facility] Specimen Type POC Capillary 08/24/2024 11:44 AM EDT [facility] Blood Capillary blood specimen / Unknown 08/24/2024 11:36 AM EDT 08/24/2024 11:44 AM EDT Doron Thayer MD LAB POINT OF CARE TE ST DOCKED DEVICE UNSOLICITED RESULTS Final Result Performing Organization Address City/State/[facility] Co de Phone Number HEALTHCARE LAB [address] [place] [address] * (ABNORMAL) POCT glucose meter (08/24/2024 7:37 AM EDT) [facility] POCT Glucose 440(H) 74 - 99 mg/dL [...] 08/24/2024 7:41 AM EDT [facility] Card Tape Converter Operator ID Partha Zhu 08/25/19 7:41 AM EDT HEALTHCARE LAB Device ID [id number] 08/24/2024 7:41 AM EDT [facility]ALTH[facility]ARE LAB Specimen Type POC Capillary 08/24/2024 7:41 AM EDT [facility] Blood Capillary blood specimen / Unknown 08/24/2024 7:37 AM EDT 08/24/2024 7:41 AM EDT us Doron Thayer MD LAB POINT OF CARE TE ST DOCKED DEVICE UNSOLICITED RESULTS Final Result Performing Organization Address [facility] Co de Phone Number [facility] [address] [place] [address] * (ABNORMAL) Prothrombin Time/INR (08/24/2024 3:43 AM EDT) Prothrombin Time 16.6(H) 12.0 - 14.3 sec LAB COAGULATION METHOD 08/24/2024 4:04 AM EDT [facility] INR 1.3(H) 0.9 - 1.1 LAB COAGULATION METHOD 08/24/2024 4:04 AM EDT [facility] Blood Venous blood specimen / Unknown Venipuncture / Unknown 08/24/2024 3:43 AM EDT 08/24/2024 3:48 AM EDT Narrative [facility] - 08/24/2024 4:04 AM EDT OPTIMAL INR RANGES FOR PATIENT ON ORAL ANTICOAGULANT THERAPY Prevention of venous thromboembolism INR 2.0 to 3.0 In patients with heart disease: Atrial fibrillation INR 2.0 to 3.0 Valvular heart disease INR 2.0 to 3.0 Tissue heart valves INR 2.0 to 3.0 Mechanical prosthetic valves INR 2.5 to 3.5 Prevention of recurrent NM INR 2.5 to 3.5 us Kenneth James MD LAB BLOOD ORDERABLES Final Res ult Performing Organization Address City/[facility]/ZIP Co de Phone Number [facility] [address] [place] [address] * (ABNORMAL) Basic metabolic panel (08/24/2024 3:43 AM EDT) Glucose, Plasma 327(H) 74 - 99 mg/dL 08/24/2024 4:22 AM EDT [facility] BUN, Plasma 33(H) 8 - 23 mg/dL 08/24/2024 4:22 AM EDT [facility] Creatinine, Plasma 1.02 0.60 - 1.10 mg/dL 08/24/2024 4:22 AM EDT [facility] BUN/Creatinine Ratio 32 08/24/2024 4:22 AM EDT [facility] Sodium, Plasma 128(L) 136 - 145 mmol/L 08/24/2024 4:22 AM EDT [facility] Potassium, Plasma 4.1 3.6 - 4.9 mmol/L 08/24/2024 4:22 AM EDT [facility] Chloride, Plasma 90(L) 97 - 107 mmol/L 08/24/2024 4:22 AM EDT [facility] CO2, Plasma 27 22 - 29 mmol/L 08/24/2024 4:22 AM EDT [facility] Anion Gap 11 6 - 16 mmol/L 08/24/2024 4:22 AM EDT [facility] Total Calcium, Plasma 8.6(L) 8.9 - 10.2 mg/dL 08/24/2024 4:22 AM EDT [facility] eGFRcr 58.2 mL/min/1.7 3m*2 08/24/2024 4:22 AM EDT [facility] Comment:Reported eGFRcr in m L/min/1.73m2 is based the CKD-EPI 2020 equation that does not use a race coefficient. Blood Venous blood specimen / Unknown Venipuncture / Unknown 08/24/2024 3:43 AM EDT 08/24/2024 3:49 AM EDT us Kenneth James MD LAB BLOOD ORDERABLES Final Res ult [facility] [address] [place] [address] * POCT glucose meter (08/23/2024 7:09 PM EDT) [facility] POCT Glucose 96 74 - 99 mg/dL 08/23/2024 7:11 PM EDT [facility] Comment:Accuracy of a glucos e [...] for testing. Comment 08/23/2024 7:11 PM EDT HEALTHCARE LAB Card Tape Converter Operator ID Veronica Kellogg 025 7:11 PM EDT HEALTHCARE LAB Device ID [id number] 08/23/2024 7:11 PM EDT [facility] Specimen Type POC Capillary 08/23/2024 7:11 PM EDT [facility] Blood Capillary blood specimen / Unknown 08/23/2024 7:09 PM EDT 08/23/2024 7:11 PM EDT us Kenneth James MD LAB POINT OF CARE TE ST DOCKED DEVICE UNSOLICITED RESULTS Final Result Performing Organization Address City/[facility]/ZIP Co de Phone Number [facility] [address] [place] [address] * (ABNORMAL) POCT glucose meter (08/23/2024 3:58 PM EDT) [facility] POCT Glucose 123(H) 74 - 99 mg/dL 08/23/2024 4:04 PM EDT [facility]ARE [facility] Comment:Accuracy of a [...] for testing. Comment 08/23/2024 4:04 PM EDT [facility]ARE [facility] Card Tape Converter Operator ID Guillermo Marquez 08/24/19 25 4:04 PM EDT HEALTHCARE LAB Device ID [id number] 08/23/2024 4:04 PM EDT [facility]ARE LAB Specimen Type POC Capillary 08/23/2024 4:04 PM EDT [facility] Blood Capillary blood specimen / Unknown 08/23/2024 3:58 PM EDT 08/23/2024 4:04 PM EDT us Kenneth James MD LAB POINT OF CARE TE ST DOCKED DEVICE UNSOLICITED RESULTS Final Result [facility] [address] [place] [id number] * XR Chest 1 View (08/23/2024 2:20 [...] MD on 08/23/2024 2:22 PM Boby Rouse SCHEDULING ASSISTANT IMG XR PROCEDURES Final Res ult * (ABNORMAL) POCT glucose meter (08/23/2024 11:41 AM EDT) POCT Glucose 223(H) 74 - 99 mg/dL 08/23/2024 11:43 AM EDT [facility] Comment:Accuracy of a glucos e result [...] for testing. Comment 08/23/2024 11:43 AM EDT [facility] Card Tape Converter Operator ID Marilee Fabian 08/23/2024 11:43 AM EDT [facility] Device ID [id number] 08/23/2024 11:43 AM EDT [facility] Specimen Type POC Capillary 08/23/2024 11:43 AM EDT [facility]ARE [facility] Blood Capillary blood specimen / Unknown 08/23/2024 11:41 AM EDT 08/23/2024 11:43 AM EDT Kenneth James MD LAB POINT OF CARE TE ST DOCKED DEVICE UNSOLICITED RESULTS Final Result Performing Organization Address [facility] Co de Phone Number HEALTHCARE LAB [address] [place] [address] * (ABNORMAL) POCT glucose meter (08/23/2024 7:37 [...] 08/23/2024 7:38 AM EDT [facility] Card Tape Converter Operator ID Marjorie Cortez 08/24/19 7:38 AM EDT HEALTHCARE LAB Device ID [id number] 08/23/2024 7:38 AM EDT [facility] Specimen Type POC Capillary 08/23/2024 7:38 AM EDT [facility] Blood Capillary blood specimen / Unknown 08/23/2024 7:37 AM EDT 08/23/2024 7:38 AM EDT us Kenneth James MD LAB POINT OF CARE TE ST DOCKED DEVICE UNSOLICITED RESULTS Final Result Performing Organization Address City/[facility] Co de Phone Number [facility] [address] [place] [address] * (ABNORMAL) Prothrombin Time/INR (08/23/2024 3:19 AM EDT) Prothrombin Time 14.4(H) 12.0 - 14.3 sec LAB COAGULATION METHOD 08/23/2024 3:56 AM EDT [facility] INR 1.1 0.9 - 1.1 LAB COAGULATION METHOD 08/23/2024 3:56 AM EDT [facility] Blood Venous blood specimen / Unknown Venipuncture / Unknown 08/23/2024 3:19 AM EDT 08/23/2024 3:25 AM EDT Narrative [facility] - 08/23/2024 3:56 AM EDT OPTIMAL INR RANGES FOR PATIENT ON ORAL ANTICOAGULANT THERAPY Prevention of venous thromboembolism INR 2.0 to 3.0 In patients with heart disease: Atrial fibrillation INR 2.0 to 3.0 Valvular heart disease INR 2.0 to 3.0 Tissue heart valves INR 2.0 to 3.0 Mechanical prosthetic valves INR 2.5 to 3.5 Prevention of recurrent NM INR 2.5 to 3.5 us Kenneth James MD LAB BLOOD ORDERABLES Final Res ult [facility] [address] [place] [address] * (ABNORMAL) Basic metabolic panel (08/23/2024 3:19 AM EDT) Glucose, Plasma 250(H) 74 - 99 mg/dL 08/23/2024 4:06 AM EDT [facility] BUN, Plasma 28(H) 8 - 23 mg/dL 08/23/2024 4:06 AM EDT [facility] Creatinine, Plasma 1.05 0.60 - 1.10 mg/dL 08/23/2024 4:06 AM EDT [facility] BUN/Creatinine Ratio 27 08/23/2024 4:06 AM EDT [facility] Sodium, Plasma 128(L) 136 - 145 mmol/L 08/23/2024 4:06 AM EDT [facility] Potassium, Plasma 4.2 3.6 - 4.9 mmol/L 08/23/2024 4:06 AM EDT [facility] Chloride, Plasma 90(L) 97 - 107 mmol/L 08/23/2024 4:06 AM EDT [facility] CO2, Plasma 31(H) 22 - 29 mmol/L 08/23/2024 4:06 AM EDT [facility] Anion Gap 7 6 - 16 mmol/L 08/23/2024 4:06 AM EDT [facility] Total Calcium, Plasma 9.0 8.9 - 10.2 mg/dL 08/23/2024 4:06 AM EDT [facility] eGFRcr 56.2 mL/min/1.7 3m*2 08/23/2024 4:06 AM EDT [facility] Comment:Reported eGFRcr in m L/min/1.73m2 is based the CKD-EPI 2020 equation that does not use a race coefficient. Blood Venous blood specimen / Unknown Venipuncture / Unknown 08/23/2024 3:19 AM EDT 08/23/2024 3:25 AM EDT us Kenneth James MD LAB BLOOD ORDERABLES Final Res ult [facility] [address] [place] [address] * (ABNORMAL) POCT glucose meter (08/23/2024 3:08 AM EDT) POCT Glucose 261(H) 74 - 99 mg/dL 08/23/2024 3:09 AM EDT [facility] Comment:Accuracy of a glucos e result [...] for testing. Comment 08/23/2024 3:09 AM EDT [facility] Card Tape Converter Operator ID Karson Kaufman 08/24/19 3:09 AM EDT [facility] Device ID [id number] 08/23/2024 3:09 AM EDT [facility] Specimen Type POC Capillary 08/23/2024 3:09 AM EDT [facility] Blood Capillary blood specimen / Unknown 08/23/2024 3:08 AM EDT 08/23/2024 3:09 AM EDT Kenneth James MD LAB POINT OF CARE TE ST DOCKED DEVICE UNSOLICITED RESULTS Final Result Performing Organization Address City/[facility]/ZIP Co de Phone Number [facility]ALTHCARE LAB [address] [place] [address] * (ABNORMAL) POCT glucose meter (08/22/2024 9:36 PM EDT) POCT Glucose 299(H) 74 - 99 mg/dL [...] Comment 08/22/2024 9:37 PM EDT [facility]ALTH[facility]ARE [facility] Card Tape Converter Operator ID Puja Le 08/22/2024 9:37 PM EDT [facility] Device ID [id number] 08/22/2024 9:37 PM EDT [facility] Specimen Type POC Capillary 08/22/2024 9:37 PM EDT [facility] Blood Capillary blood specimen / Unknown 08/22/2024 9:36 PM EDT 08/22/2024 9:37 PM EDT us Kenneth James MD LAB POINT OF CARE TE ST DOCKED DEVICE UNSOLICITED RESULTS Final Result [facility] [address] [place] [address] * (ABNORMAL) POCT glucose meter (08/22/2024 8:19 [...] Comment 08/22/2024 8:20 PM EDT HEALTH[facility]ARE LAB Card Tape Converter Operator ID Karson Kaufman 08/23/19 8:20 PM EDT HEALTHCARE LAB Device ID [id number] 08/22/2024 8:20 PM EDT HEALTH[facility]ARE LAB Specimen Type POC Capillary 08/22/2024 8:20 PM EDT [facility] Blood Capillary blood specimen / Unknown 08/22/2024 8:19 PM EDT 08/22/2024 8:20 PM EDT us Kenneth James MD LAB POINT OF CARE TE ST DOCKED DEVICE UNSOLICITED RESULTS Final Result Performing Organization Address City/State/[facility] Co de Phone Number [facility]ALTH[facility]ARE LAB [address] [place] [address] * (ABNORMAL) Basic metabolic panel (08/22/2024 5:53 PM EDT) Glucose, Plasma 102(H) 74 - 99 mg/dL 08/22/2024 6:38 PM EDT [facility] BUN, Plasma 29(H) 8 - 23 mg/dL 08/22/2024 6:38 PM EDT [facility] Creatinine, Plasma 1.11(H) 0.60 - 1.10 mg/dL 08/22/2024 6:38 PM EDT [facility] BUN/Creatinine Ratio 26 08/22/2024 6:38 PM EDT [facility] Sodium, Plasma 138 136 - 145 mmol/L 08/22/2024 6:38 PM EDT [facility] Potassium, Plasma 4.5 3.6 - 4.9 mmol/L 08/22/2024 6:38 PM EDT [facility] Chloride, Plasma 96(L) 97 - 107 mmol/L 08/22/2024 6:38 PM EDT [facility] CO2, Plasma 30(H) 22 - 29 mmol/L 08/22/2024 6:38 PM EDT [facility] Anion Gap 12 6 - 16 mmol/L 08/22/2024 6:38 PM EDT [facility] Total Calcium, Plasma 9.1 8.9 - 10.2 mg/dL 08/22/2024 6:38 PM EDT [facility] eGFRcr 52.6 mL/min/1.7 3m*2 08/22/2024 6:38 PM EDT [facility] Comment:Reported eGFRcr in m L/min/1.73m2 is based the CKD-EPI 2020 equation that does not use a race coefficient. Blood Venous blood specimen / Unknown Venipuncture / Unknown 08/22/2024 5:53 PM EDT 08/22/2024 5:58 PM EDT us Kenneth James MD LAB BLOOD ORDERABLES Final Res ult [facility] [address] [place] [address] * (ABNORMAL) POCT glucose meter (08/22/2024 5:46 [...] 08/22/2024 5:47 PM EDT [facility] Card Tape Converter Operator ID Kosta Dugan 08/23/19 5:47 PM EDT [facility] Device ID [id number] 08/22/2024 5:47 PM EDT [facility] Specimen Type POC Capillary 08/22/2024 5:47 PM EDT [facility] Blood Capillary blood specimen / Unknown 08/22/2024 5:46 PM EDT 08/22/2024 5:47 PM EDT us Kenneth James MD LAB POINT OF CARE TE ST DOCKED DEVICE UNSOLICITED RESULTS Final Result Performing Organization Address City/[facility] Co de Phone Number [facility]ALTHCARE LAB [address] [place] [address] * POCT glucose meter (08/22/2024 4:25 PM EDT) [facility] Signature POCT Glucose 78 74 - 99 mg/dL [...] 08/22/2024 4:26 PM EDT [facility] Card Tape Converter Operator ID AlexyLa torres 08/22/2024 4:26 PM EDT HEALTHCARE LAB Device ID [id number] 08/22/2024 4:26 PM EDT [facility]ALTH[facility]ARE LAB Specimen Type POC Capillary 08/22/2024 4:26 PM EDT [facility] Blood Capillary blood specimen / Unknown 08/22/2024 4:25 PM EDT 08/22/2024 4:26 PM EDT Kenneth James MD LAB POINT OF CARE TE ST DOCKED DEVICE UNSOLICITED RESULTS Final Result Performing Organization Address City/[facility] Co de Phone Number [facility]ARE [facility] [address] [place] [address] * XR Chest 1 View (08/22/2024 11:31 [...] 08/22/2024 11:20 AM EDT [facility] Card Tape Converter Operator ID La Tracey 08/22/2024 11:20 AM EDT [facility] Device ID [id number] 08/22/2024 11:20 AM EDT [facility] Specimen Type POC Capillary 08/22/2024 11:20 AM EDT [facility] Blood Capillary blood specimen / Unknown 08/22/2024 11:18 AM EDT 08/22/2024 11:20 AM EDT Kenneth James MD LAB POINT OF CARE TE ST DOCKED DEVICE UNSOLICITED RESULTS Final Result [facility] [address] [place] [address] * (ABNORMAL) POCT glucose meter (08/22/2024 7:30 AM EDT) [facility] POCT Glucose 378(H) 74 - 99 mg/dL [...] Comment 08/22/2024 7:32 AM EDT [facility] Card Tape Converter Operator ID AlexyLa torres 08/22/2024 7:32 AM EDT [facility]ARE [facility] Device ID [id number] 08/22/2024 7:32 AM EDT [facility] Specimen Type POC Capillary 08/22/2024 7:32 AM EDT [facility] Blood Capillary blood specimen / Unknown 08/22/2024 7:30 AM EDT 08/22/2024 7:32 AM EDT Kenneth James MD LAB POINT OF CARE TE ST DOCKED DEVICE UNSOLICITED RESULTS Final Result Performing Organization Address [facility] Co de Phone Number [facility]ARE [facility] [address] [place] [address] * (ABNORMAL) Prothrombin Time/INR (08/22/2024 6:01 AM EDT) [facility] Prothrombin Time 14.4(H) 12.0 - 14.3 sec LAB COAGULATION METHOD 08/22/2024 6:28 AM EDT [facility] INR 1.1 0.9 - 1.1 LAB COAGULATION METHOD 08/22/2024 6:28 AM EDT [facility] Blood Venous blood specimen / Unknown Venipuncture / Unknown 08/22/2024 6:01 AM EDT 08/22/2024 6:08 AM EDT Narrative [facility] - 08/22/2024 6:28 AM EDT OPTIMAL INR RANGES FOR PATIENT ON ORAL ANTICOAGULANT THERAPY Prevention of venous thromboembolism INR 2.0 to 3.0 In patients with heart disease: Atrial fibrillation INR 2.0 to 3.0 Valvular heart disease INR 2.0 to 3.0 Tissue heart valves INR 2.0 to 3.0 Mechanical prosthetic valves INR 2.5 to 3.5 Prevention of recurrent NM INR 2.5 to 3.5 us Kenneth James MD LAB BLOOD ORDERABLES Final Res ult [facility] [address] [place] [address] * (ABNORMAL) Basic Metabolic Panel, Plasma (08/22/2024 4:46 AM EDT) Glucose, Plasma 276(H) 74 - 99 mg/dL 08/22/2024 5:50 AM EDT [facility] BUN, Plasma 30(H) 8 - 23 mg/dL 08/22/2024 5:50 AM EDT [facility] Creatinine, Plasma 0.94 0.60 - 1.10 mg/dL 08/22/2024 5:50 AM EDT [facility] BUN/Creatinine Ratio 32 08/22/2024 5:50 AM EDT [facility] Sodium, Plasma 127(L) 136 - 145 mmol/L 08/22/2024 5:50 AM EDT [facility] Potassium, Plasma 4.4 3.6 - 4.9 mmol/L 08/22/2024 5:50 AM EDT [facility] Chloride, Plasma 88(L) 97 - 107 mmol/L 08/22/2024 5:50 AM EDT [facility] CO2, Plasma 25 22 - 29 mmol/L 08/22/2024 5:50 AM EDT [facility] Anion Gap 14 6 - 16 mmol/L 08/22/2024 5:50 AM EDT [facility] Total Calcium, Plasma 9.3 8.9 - 10.2 mg/dL 08/22/2024 5:50 AM EDT [facility] eGFRcr 64.2 mL/min/1.7 3m*2 08/22/2024 5:50 AM EDT [facility] Comment:Reported eGFRcr in m L/min/1.73m2 is based the CKD-EPI 2020 equation that does not use a race coefficient. Blood Venous blood specimen / Unknown Venipuncture / Unknown 08/22/2024 4:46 AM EDT 08/22/2024 4:53 AM EDT Kenneth James MD LAB BLOOD ORDERABLES Final Res ult [facility] [address] [place] [address] * (ABNORMAL) POCT glucose meter (08/21/2024 9:26 PM EDT) Pathologist [facility] POCT Glucose 195(H) 74 - 99 mg/dL [...] Comment 08/21/2024 9:28 PM EDT [facility] Card Tape Converter Operator ID Hazel Keller 08/22/19 9:28 PM EDT [facility] Device ID [id number] 08/21/2024 9:28 PM EDT [facility] Specimen Type POC Capillary 08/21/2024 9:28 PM EDT [facility] Blood Capillary blood specimen / Unknown 08/21/2024 9:26 PM EDT 08/21/2024 9:28 PM EDT Kenneth James MD LAB POINT OF CARE TE ST DOCKED DEVICE UNSOLICITED RESULTS Final Result [facility] [address] [place] [address] * Lavender Top (08/21/2024 5:23 PM EDT) Extra Hold for add-ons 08/21/2024 9:02 PM EDT [facility] Comment:Auto resulted. Blood Venous blood specimen / Unknown 08/21/2024 5:23 PM EDT 08/21/2024 6:26 PM EDT us Kenneth James MD LAB BLOOD ORDERABLES Final Res ult [facility] [address] [place] [address] * (ABNORMAL) Basic metabolic panel (08/21/2024 5:23 PM EDT) Glucose, Plasma 136(H) 74 - 99 mg/dL 08/21/2024 6:22 PM EDT [facility] BUN, Plasma 32(H) 8 - 23 mg/dL 08/21/2024 6:22 PM EDT [facility] Creatinine, Plasma 1.09 0.60 - 1.10 mg/dL 08/21/2024 6:22 PM EDT [facility] BUN/Creatinine Ratio 29 08/21/2024 6:22 PM EDT [facility] Sodium, Plasma 131(L) 136 - 145 mmol/L 08/21/2024 6:22 PM EDT [facility] Potassium, Plasma 4.4 3.6 - 4.9 mmol/L 08/21/2024 6:22 PM EDT [facility] Chloride, Plasma 91(L) 97 - 107 mmol/L 08/21/2024 6:22 PM EDT [facility] CO2, Plasma 28 22 - 29 mmol/L 08/21/2024 6:22 PM EDT [facility] Anion Gap 12 6 - 16 mmol/L 08/21/2024 6:22 PM EDT [facility] Total Calcium, Plasma 9.3 8.9 - 10.2 mg/dL 08/21/2024 6:22 PM EDT [facility] eGFRcr 53.8 mL/min/1.7 3m*2 08/21/2024 6:22 PM EDT [facility] Comment:Reported eGFRcr in m L/min/1.73m2 is based the CKD-EPI 2020 equation that does not use a race coefficient. Blood Venous blood specimen / Unknown Venipuncture / Unknown 08/21/2024 5:23 PM EDT 08/21/2024 5:51 PM EDT Kenneth James MD LAB BLOOD ORDERABLES Final Res ult [facility] [address] [place] [address] * POCT glucose meter (08/21/2024 4:18 PM EDT) [facility] POCT Glucose 95 74 - 99 [...] for testing. Comment 08/21/2024 4:23 PM EDT [facility] Card Tape Converter Operator ID Alysia Werner 08/22/19 4:23 PM EDT [facility] Device ID [id number] 08/21/2024 4:23 PM EDT [facility] Specimen Type POC Capillary 08/21/2024 4:23 PM EDT [facility] Blood Capillary blood specimen / Unknown 08/21/2024 4:18 PM EDT 08/21/2024 4:23 PM EDT Kenneth James MD LAB POINT OF CARE TE ST DOCKED DEVICE UNSOLICITED RESULTS Final Result Performing Organization Address City/[facility]/ZIP Co de Phone Number [facility] [address] [place] [address] * (ABNORMAL) POCT glucose meter (08/21/2024 11:24 AM EDT) [facility] POCT Glucose 330(H) 74 - 99 [...] for testing. Comment 08/21/2024 11:27 AM EDT [facility] Card Tape Converter Operator ID Alysia Werner 08/22/19 11:27 AM EDT [facility] Device ID [id number] 08/21/2024 11:27 AM EDT [facility] Specimen Type POC Capillary 08/21/2024 11:27 AM EDT [facility] Blood Capillary blood specimen / Unknown 08/21/2024 11:24 AM EDT 08/21/2024 11:27 AM EDT us Kenneth James MD LAB POINT OF CARE TE ST DOCKED DEVICE UNSOLICITED RESULTS Final Result Performing Organization Address City/[facility]/ZIP Co de Phone Number [facility] [address] [place] [address] * (ABNORMAL) POCT glucose meter (08/21/2024 8:05 AM EDT) [facility] POCT Glucose 332(H) 74 - 99 mg/dL [...] Comment 08/21/2024 8:06 AM EDT [facility] Card Tape Converter Operator ID Alysia Werner 08/22/19 8:06 AM EDT [facility] Device ID [id number] 08/21/2024 8:06 AM EDT [facility] Specimen Type POC Capillary 08/21/2024 8:06 AM EDT [facility] Blood Capillary blood specimen / Unknown 08/21/2024 8:05 AM EDT 08/21/2024 8:06 AM EDT us Kenneth James MD LAB POINT OF CARE TE ST DOCKED DEVICE UNSOLICITED RESULTS Final Result [facility] [address] [place] [address] * XR Chest 1 View (08/21/2024 7:01 [...] MD on 08/21/2024 2:34 PM us Boby Rouse SCHEDULING ASSISTANT IMG XR PROCEDURES Final Res ult * Prothrombin Time/INR (08/21/2024 4:04 AM EDT) Prothrombin Time 13.8 12.0 - 14.3 sec LAB COAGULATION METHOD 08/21/2024 4:52 AM EDT [facility] INR 1.1 0.9 - 1.1 LAB COAGULATION METHOD 08/21/2024 4:52 AM EDT [facility] Blood Venous blood specimen / Unknown Venipuncture / Unknown 08/21/2024 4:04 AM EDT 08/21/2024 4:31 AM EDT Narrative [facility] - 08/21/2024 4:52 AM EDT OPTIMAL INR RANGES FOR PATIENT ON ORAL ANTICOAGULANT THERAPY Prevention of venous thromboembolism INR 2.0 to 3.0 In patients with heart disease: Atrial fibrillation INR 2.0 to 3.0 Valvular heart disease INR 2.0 to 3.0 Tissue heart valves INR 2.0 to 3.0 Mechanical prosthetic valves INR 2.5 to 3.5 Prevention of recurrent NM INR 2.5 to 3.5 us Kenneth James MD LAB BLOOD ORDERABLES Final Res ult [facility] [address] [place] [address] * (ABNORMAL) Basic metabolic panel (08/21/2024 4:04 AM EDT) Glucose, Plasma 401(H) 74 - 99 mg/dL 08/21/2024 5:05 AM EDT [facility] BUN, Plasma 32(H) 8 - 23 mg/dL 08/21/2024 5:05 AM EDT [facility] Creatinine, Plasma 0.99 0.60 - 1.10 mg/dL 08/21/2024 5:05 AM EDT [facility] BUN/Creatinine Ratio 32 08/21/2024 5:05 AM EDT [facility] Sodium, Plasma 125(L) 136 - 145 mmol/L 08/21/2024 5:05 AM EDT [facility] Potassium, Plasma 4.0 3.6 - 4.9 mmol/L 08/21/2024 5:05 AM EDT [facility] Chloride, Plasma 85(L) 97 - 107 mmol/L 08/21/2024 5:05 AM EDT [facility] CO2, Plasma 29 22 - 29 mmol/L 08/21/2024 5:05 AM EDT [facility] Anion Gap 11 6 - 16 mmol/L 08/21/2024 5:05 AM EDT [facility] Total Calcium, Plasma 9.0 8.9 - 10.2 mg/dL 08/21/2024 5:05 AM EDT [facility] eGFRcr 60.3 mL/min/1.7 3m*2 08/21/2024 5:05 AM EDT [facility] Comment:Reported eGFRcr in m L/min/1.73m2 is based the CKD-EPI 2020 equation that does not use a race coefficient. Blood Venous blood specimen / Unknown Venipuncture / Unknown 08/21/2024 4:04 AM EDT 08/21/2024 4:31 AM EDT us Kenneth James MD LAB BLOOD ORDERABLES Final Res ult Performing Organization Address City/[facility]/ZIP Co de Phone Number [facility] [address] [place] [address] * (ABNORMAL) POCT glucose meter (08/21/2024 3:47 [...] Comment 08/21/2024 3:49 AM EDT [facility]ALTH[facility] Card Tape Converter Operator ID Marlene Jain 08/21/2024 3:49 AM EDT HEALTH[facility]ARE LAB Device ID [id number] 08/21/2024 3:49 AM EDT [facility] Specimen Type POC Capillary 08/21/2024 3:49 AM EDT [facility] Blood Capillary blood specimen / Unknown 08/21/2024 3:47 AM EDT 08/21/2024 3:49 AM EDT us Kenneth James MD LAB POINT OF CARE TE ST DOCKED DEVICE UNSOLICITED RESULTS Final Result Performing Organization Address City/[facility]/ZIP Co de Phone Number [facility] [address] [place] [address] * (ABNORMAL) POCT glucose meter (08/20/2024 7:51 PM EDT) Pathologist [facility] POCT Glucose 275(H) 74 - 99 mg/dL [...] for testing. Comment 08/20/2024 7:52 PM EDT [facility] Card Tape Converter Operator ID Karson Kaufman 08/21/19 7:52 PM EDT HEALTH[facility]ARE LAB Device ID [id number] 08/20/2024 7:52 PM EDT [facility] Specimen Type POC Capillary 08/20/2024 7:52 PM EDT [facility] Blood Capillary blood specimen / Unknown 08/20/2024 7:51 PM EDT 08/20/2024 7:52 PM EDT us Kenneth James MD LAB POINT OF CARE TE ST DOCKED DEVICE UNSOLICITED RESULTS Final Result Performing Organization Address City/State/[facility] Co de Phone Number [facility]ARE [facility] [address] [place] [address] * (ABNORMAL) POCT glucose meter (08/20/2024 5:05 PM EDT) [facility] POCT Glucose 217(H) 74 - 99 mg/dL [...] for testing. Comment 08/20/2024 5:08 PM EDT [facility] Card Tape Converter Operator ID Basia Cole 08/20/2024 5:08 PM EDT [facility] Device ID [id number] 08/20/2024 5:08 PM EDT [facility] Specimen Type POC Capillary 08/20/2024 5:08 PM EDT [facility] Blood Capillary blood specimen / Unknown 08/20/2024 5:05 PM EDT 08/20/2024 5:08 PM EDT Kenneth James MD LAB POINT OF CARE TE ST DOCKED DEVICE UNSOLICITED RESULTS Final Result [facility] [address] [place] [address] * (ABNORMAL) POCT glucose meter (08/20/2024 12:16 PM EDT) POCT Glucose 373(H) 74 - 99 mg/dL [...] Comment 08/20/2024 12:18 PM EDT [facility] Card Tape Converter Operator ID Basia Cole 08/20/2024 12:18 PM EDT [facility] Device ID [id number] 08/20/2024 12:18 PM EDT [facility] Specimen Type POC Capillary 08/20/2024 12:18 PM EDT [facility] Blood Capillary blood specimen / Unknown 08/20/2024 12:16 PM EDT 08/20/2024 12:18 PM EDT Kenneth James MD LAB POINT OF CARE TE ST DOCKED DEVICE UNSOLICITED RESULTS Final Result [facility] [address] [place] [address] * (ABNORMAL) POCT glucose meter (08/20/2024 8:14 [...] Comment 08/20/2024 8:16 AM EDT [facility] Card Tape Converter Operator ID Basia Cole 08/20/2024 8:16 AM EDT [facility] Device ID [id number] 08/20/2024 8:16 AM EDT [facility] Specimen Type POC Capillary 08/20/2024 8:16 AM EDT [facility] Blood Capillary blood specimen / Unknown 08/20/2024 8:14 AM EDT 08/20/2024 8:16 AM EDT us Kenneth James MD LAB POINT OF CARE TE ST DOCKED DEVICE UNSOLICITED RESULTS Final Result Performing Organization Address City/State/[facility] Phone Number [facility]ALTH[facility]ARE [facility] [address] [place] [address] * XR Chest 1 View (08/20/2024 6:58 [...] Muir MD on 08/20/2024 9:55 AM Boby Maldonado Rouse SCHEDULING ASSISTANT IMG XR PROCEDURES Final Res ult * (ABNORMAL) POCT glucose meter (08/20/2024 3:23 AM EDT) POCT Glucose 218(H) 74 - 99 [...] for testing. Comment 08/20/2024 3:25 AM EDT [facility] Card Tape Converter Operator ID Karson Kaufman 08/21/19 3:25 AM EDT [facility] Device ID [id number] 08/20/2024 3:25 AM EDT [facility] Specimen Type POC Capillary 08/20/2024 3:25 AM EDT [facility] Blood Capillary blood specimen / Unknown 08/20/2024 3:23 AM EDT 08/20/2024 3:25 AM EDT Kenneth James MD LAB POINT OF CARE TE ST DOCKED DEVICE UNSOLICITED RESULTS Final Result [facility] [address] [place] [id number] * Prothrombin Time/INR (08/20/2024 1:57 AM EDT) Pathologist [facility] Prothrombin Time 13.7 12.0 - 14.3 sec LAB COAGULATION METHOD 08/20/2024 2:21 AM EDT [facility] INR 1.0 0.9 - 1.1 LAB COAGULATION METHOD 08/20/2024 2:21 AM EDT [facility] Blood Venous blood specimen / Unknown Venipuncture / Unknown 08/20/2024 1:57 AM EDT 08/20/2024 2:02 AM EDT Narrative [facility] - 08/20/2024 2:21 AM EDT OPTIMAL INR RANGES FOR PATIENT ON ORAL ANTICOAGULANT THERAPY Prevention of venous thromboembolism INR 2.0 to 3.0 In patients with heart disease: Atrial fibrillation INR 2.0 to 3.0 Valvular heart disease INR 2.0 to 3.0 Tissue heart valves INR 2.0 to 3.0 Mechanical prosthetic valves INR 2.5 to 3.5 Prevention of recurrent NM INR 2.5 to 3.5 Kenneth James MD LAB BLOOD ORDERABLES Final Res ult Performing Organization Address [facility] Co de Phone Number [facility] [address] [place] [address] * (ABNORMAL) Magnesium (08/20/2024 1:57 AM EDT) Magnesium, Plasma 1.8(L) 1.9 - 2.4 mg/dL 08/20/2024 3:18 AM EDT [facility] Blood Venous blood specimen / Unknown Venipuncture / Unknown 08/20/2024 1:57 AM EDT 08/20/2024 2:02 AM EDT Kenneth James MD LAB BLOOD ORDERABLES Final Res ult Performing Organization Address [facility]/ZIP Co de Phone Number [facility] [address] [place] [address] * (ABNORMAL) Basic metabolic panel (08/20/2024 1:57 AM EDT) Glucose, Plasma 216(H) 74 - 99 mg/dL 08/20/2024 3:18 AM EDT [facility] BUN, Plasma 29(H) 8 - 23 mg/dL 08/20/2024 3:18 AM EDT [facility] Creatinine, Plasma 0.97 0.60 - 1.10 mg/dL 08/20/2024 3:18 AM EDT [facility] BUN/Creatinine Ratio 30 08/20/2024 3:18 AM EDT [facility] Sodium, Plasma 125(L) 136 - 145 mmol/L 08/20/2024 3:18 AM EDT [facility] Potassium, Plasma 4.8 3.6 - 4.9 mmol/L 08/20/2024 3:18 AM EDT [facility] Comment:Hemolyzed, result ma y be falsely increased. Chloride, Plasma 85(L) 97 - 107 mmol/L 08/20/2024 3:18 AM EDT [facility] CO2, Plasma 26 22 - 29 mmol/L 08/20/2024 3:18 AM EDT [facility] Anion Gap 14 6 - 16 mmol/L 08/20/2024 3:18 AM EDT [facility] Total Calcium, Plasma 9.5 8.9 - 10.2 mg/dL 08/20/2024 3:18 AM EDT [facility] eGFRcr 61.8 mL/min/1.7 3m*2 08/20/2024 3:18 AM EDT [facility] Comment:Reported eGFRcr in m L/min/1.73m2 is based the CKD-EPI 2020 equation that does not use a race coefficient. Blood Venous blood specimen / Unknown Venipuncture / Unknown 08/20/2024 1:57 AM EDT 08/20/2024 2:02 AM EDT us Kenneth James MD LAB BLOOD ORDERABLES Final Res ult [facility] [address] [place] [address] * (ABNORMAL) POCT glucose meter (08/19/2024 7:49 PM EDT) [facility] POCT Glucose 308(H) 74 - 99 mg/dL 08/19/2024 7:51 PM EDT [facility] Comment:Accuracy of a glucos e [...] 08/19/2024 7:51 PM EDT [facility] Card Tape Converter Operator ID Karson Kaufman 08/20/19 7:51 PM EDT [facility] Device ID [id number] 08/19/2024 7:51 PM EDT [facility] Specimen Type POC Capillary 08/19/2024 7:51 PM EDT [facility] Blood Capillary blood specimen / Unknown 08/19/2024 7:49 PM EDT 08/19/2024 7:51 PM EDT Kenneth James MD LAB POINT OF CARE TE ST DOCKED DEVICE UNSOLICITED RESULTS Final Result Performing Organization Address City/[facility] Co de Phone Number [facility] [address] [place] [address] * (ABNORMAL) POCT glucose meter (08/19/2024 4:03 [...] Comment 08/19/2024 4:04 PM EDT [facility] Card Tape Converter Operator ID Michelle Rolle 08/20/19 4:04 PM EDT [facility]ALTH[facility]ARE LAB Device ID [id number] 08/19/2024 4:04 PM EDT [facility] Specimen Type POC Capillary 08/19/2024 4:04 PM EDT [facility] Blood Capillary blood specimen / Unknown 08/19/2024 4:03 PM EDT 08/19/2024 4:04 PM EDT us Kenneth James MD LAB POINT OF CARE TE ST DOCKED DEVICE UNSOLICITED RESULTS Final Result Performing Organization Address City/[facility]/ZIP Co de Phone Number [facility] [address] [place] [address] * (ABNORMAL) POCT glucose meter (08/19/2024 11:51 AM EDT) [facility] POCT Glucose 350(H) 74 - 99 mg/dL [...] for testing. Comment 08/19/2024 11:52 AM EDT [facility] Card Tape Converter Operator ID Ekaterina Gustafson 08/20/19 11:52 AM EDT [facility] Device ID [id number] 08/19/2024 11:52 AM EDT [facility]ALTH[facility] Specimen Type POC Capillary 08/19/2024 11:52 AM EDT [facility] Blood Capillary blood specimen / Unknown 08/19/2024 11:51 AM EDT 08/19/2024 11:52 AM EDT Kenneth James MD LAB POINT OF CARE TE ST DOCKED DEVICE UNSOLICITED RESULTS Final Result [facility] [address] [place] [address] * (ABNORMAL) POCT glucose meter (08/19/2024 8:06 AM EDT) [facility] POCT Glucose 254(H) 74 - 99 mg/dL [...] for testing. Comment 08/19/2024 8:08 AM EDT [facility] Card Tape Converter Operator ID Ekaterina Gustafson 08/20/19 8:08 AM EDT [facility] Device ID [id number] 08/19/2024 8:08 AM EDT [facility] Specimen Type POC Capillary 08/19/2024 8:08 AM EDT [facility] Blood Capillary blood specimen / Unknown 08/19/2024 8:06 AM EDT 08/19/2024 8:08 AM EDT Kenneth James MD LAB POINT OF CARE TE ST DOCKED DEVICE UNSOLICITED RESULTS Final Result [facility] [address] [place] [id number] * XR Chest 1 View (08/19/2024 7:54 [...] MD on 08/19/2024 8:53 AM Boby Rouse SCHEDULING ASSISTANT IMG XR PROCEDURES Final Res ult * (ABNORMAL) Prothrombin Time/INR (08/19/2024 5:00 AM EDT) Prothrombin Time 15.9(H) 12.0 - 14.3 sec LAB COAGULATION METHOD 08/19/2024 5:55 AM EDT [facility] INR 1.3(H) 0.9 - 1.1 LAB COAGULATION METHOD 08/19/2024 5:55 AM EDT [facility] Blood Venous blood specimen / Unknown Venipuncture / Unknown 08/19/2024 5:00 AM EDT 08/19/2024 5:18 AM EDT Narrative [facility] - 08/19/2024 5:55 AM EDT OPTIMAL INR RANGES FOR PATIENT ON ORAL ANTICOAGULANT THERAPY Prevention of venous thromboembolism INR 2.0 to 3.0 In patients with heart disease: Atrial fibrillation INR 2.0 to 3.0 Valvular heart disease INR 2.0 to 3.0 Tissue heart valves INR 2.0 to 3.0 Mechanical prosthetic valves INR 2.5 to 3.5 Prevention of recurrent NM INR 2.5 to 3.5 Kenneth James MD LAB BLOOD ORDERABLES Final Res ult Performing Organization Address City/[facility]/ZIP Co de Phone Number [facility] [address] [place] [address] * (ABNORMAL) Magnesium (08/19/2024 5:00 AM EDT) Magnesium, Plasma 1.7(L) 1.9 - 2.4 mg/dL 08/19/2024 5:47 AM EDT [facility] Blood Venous blood specimen / Unknown Venipuncture / Unknown 08/19/2024 5:00 AM EDT 08/19/2024 5:18 AM EDT Kenneth James MD LAB BLOOD ORDERABLES Final Res ult [facility] [address] [place] [address] * (ABNORMAL) Basic metabolic panel (08/19/2024 5:00 AM EDT) Glucose, Plasma 235(H) 74 - 99 mg/dL 08/19/2024 5:47 AM EDT [facility] BUN, Plasma 31(H) 8 - 23 mg/dL 08/19/2024 5:47 AM EDT [facility] Creatinine, Plasma 1.01 0.60 - 1.10 mg/dL 08/19/2024 5:47 AM EDT [facility] BUN/Creatinine Ratio 31 08/19/2024 5:47 AM EDT [facility] Sodium, Plasma 132(L) 136 - 145 mmol/L 08/19/2024 5:47 AM EDT [facility] Potassium, Plasma 4.4 3.6 - 4.9 mmol/L 08/19/2024 5:47 AM EDT [facility] Chloride, Plasma 90(L) 97 - 107 mmol/L 08/19/2024 5:47 AM EDT [facility] CO2, Plasma 30(H) 22 - 29 mmol/L 08/19/2024 5:47 AM EDT [facility] Anion Gap 12 6 - 16 mmol/L 08/19/2024 5:47 AM EDT [facility] Total Calcium, Plasma 8.7(L) 8.9 - 10.2 mg/dL 08/19/2024 5:47 AM EDT [facility] eGFRcr 58.9 mL/min/1.7 3m*2 08/19/2024 5:47 AM EDT [facility] Comment:Reported eGFRcr in m L/min/1.73m2 is based the CKD-EPI 2020 equation that does not use a race coefficient. Blood Venous blood specimen / Unknown Venipuncture / Unknown 08/19/2024 5:00 AM EDT 08/19/2024 5:18 AM EDT us Kenneth James MD LAB BLOOD ORDERABLES Final Res ult [facility] [address] [place] [address] * (ABNORMAL) POCT glucose meter (08/19/2024 3:40 AM EDT) POCT Glucose 198(H) 74 - 99 mg/dL 08/19/2024 3:41 AM EDT [facility] Comment:Accuracy of a glucos e result [...] for testing. Comment 08/19/2024 3:41 AM EDT [facility] Card Tape Converter Operator ID Veronica Kellogg [id number] 3:41 AM EDT [facility] Device ID [id number] 08/19/2024 3:41 AM EDT [facility] Specimen Type POC Capillary 08/19/2024 3:41 AM EDT [facility] Blood Capillary blood specimen / Unknown 08/19/2024 3:40 AM EDT 08/19/2024 3:41 AM EDT us Kenneth James MD LAB POINT OF CARE TE ST DOCKED DEVICE UNSOLICITED RESULTS Final Result Performing Organization Address City/State/[facility] Co de Phone Number [facility] [address] [place] [address] * (ABNORMAL) POCT glucose meter (08/19/2024 3:05 AM EDT) POCT Glucose 62(L) 74 - 99 mg/dL 08/19/2024 3:07 AM EDT [facility] Comment:Accuracy of a [...] Comment 08/19/2024 3:07 AM EDT [facility] Card Tape Converter Operator ID Darin Florez 3:07 AM EDT [facility] Device ID [id number] 08/19/2024 3:07 AM EDT [facility] Specimen Type POC Capillary 08/19/2024 3:07 AM EDT [facility] Blood Capillary blood specimen / Unknown 08/19/2024 3:05 AM EDT 08/19/2024 3:07 AM EDT us Kenneth James MD LAB POINT OF CARE TE ST DOCKED DEVICE UNSOLICITED RESULTS Final Result [facility] [address] [place] [address] * (ABNORMAL) POCT glucose meter (08/19/2024 1:59 AM EDT) POCT Glucose 73(L) 74 - 99 mg/dL [...] for testing. Comment 08/19/2024 2:02 AM EDT [facility] Card Tape Converter Operator ID Darin Florez 2:02 AM EDT [facility] Device ID [id number] 08/19/2024 2:02 AM EDT [facility] Specimen Type POC Capillary 08/19/2024 2:02 AM EDT [facility] Blood Capillary blood specimen / Unknown 08/19/2024 1:59 AM EDT 08/19/2024 2:02 AM EDT Kenneth James MD LAB POINT OF CARE TE ST DOCKED DEVICE UNSOLICITED RESULTS Final Result Performing Organization Address City/[facility]/ZIP Co de Phone Number [facility]ARE [facility] [address] [place] [address] * (ABNORMAL) POCT glucose meter (08/19/2024 1:03 AM EDT) Pathologist [facility] POCT Glucose 51(L) 74 - 99 mg/dL 08/19/2024 1:05 AM EDT [facility] Comment:Accuracy of [...] for testing. Comment 08/19/2024 1:05 AM EDT [facility] Card Tape Converter Operator ID Veronica Kellogg 025 1:05 AM EDT [facility]ALTH[facility]ARE LAB Device ID [id number] 08/19/2024 1:05 AM EDT [facility] Specimen Type POC Capillary 08/19/2024 1:05 AM EDT [facility] Blood Capillary blood specimen / Unknown 08/19/2024 1:03 AM EDT 08/19/2024 1:05 AM EDT Kenneth James MD LAB POINT OF CARE TE ST DOCKED DEVICE UNSOLICITED RESULTS Final Result Performing Organization Address City/[facility]/ZIP Co de Phone Number [facility] [address] [place] [address] * (ABNORMAL) POCT glucose meter (08/18/2024 11:00 PM EDT) POCT Glucose 290(H) 74 - 99 mg/dL [...] Comment 08/18/2024 11:02 PM EDT [facility] Card Tape Converter Operator ID Veronica Kellogg 025 11:02 PM EDT [facility]ARE LAB Device ID [id number] 08/18/2024 11:02 PM EDT [facility] Specimen Type POC Capillary 08/18/2024 11:02 PM EDT [facility] Blood Capillary blood specimen / Unknown 08/18/2024 11:00 PM EDT 08/18/2024 11:02 PM EDT Kenneth James MD LAB POINT OF CARE TE ST DOCKED DEVICE UNSOLICITED RESULTS Final Result [facility] [address] [place] [address] * (ABNORMAL) POCT glucose meter (08/18/2024 7:39 PM EDT) [facility] POCT Glucose 430(H) 74 - 99 mg/dL [...] Comment 08/18/2024 7:42 PM EDT [facility] Card Tape Converter Operator ID Veronica Kellogg 025 7:42 PM EDT [facility] LAB Device ID [id number] 08/18/2024 7:42 PM EDT [facility] Specimen Type POC Capillary 08/18/2024 7:42 PM EDT [facility] Blood Capillary blood specimen / Unknown 08/18/2024 7:39 PM EDT 08/18/2024 7:42 PM EDT Kenneth James MD LAB POINT OF CARE TE ST DOCKED DEVICE UNSOLICITED RESULTS Final Result Performing Organization Address City/State/[facility] Co de Phone Number [facility]ARE LAB [address] [place] [address] * (ABNORMAL) POCT glucose meter (08/18/2024 4:23 PM EDT) [facility] POCT Glucose 365(H) 74 - 99 mg/dL [...] 08/18/2024 4:32 PM EDT [facility] Card Tape Converter Operator ID Partha Zhu 08/19/19 4:32 PM EDT [facility] Device ID [id number] 08/18/2024 4:32 PM EDT [facility] Specimen Type POC Capillary 08/18/2024 4:32 PM EDT [facility] Blood Capillary blood specimen / Unknown 08/18/2024 4:23 PM EDT 08/18/2024 4:32 PM EDT Kenneth James MD LAB POINT OF CARE TE ST DOCKED DEVICE UNSOLICITED RESULTS Final Result [facility] [address] [place] [address] * RIGHT HEART CATHETERIZATION (08/18/2024 4:04 PM [...] then carried out using a 7.5F VIP [place]-C[place] catheter. Pressures were recorded as the catheter [...] the patient was transferred back to the cath laboratory technician holding area in good condition. Study Details [...] Co-Oximetry Mixed Venous (08/18/2024 3:52 PM EDT) [facility] POCT Oxyhemoglobin, Mixed Venous 60.8 % 08/18/2024 3:53 PM EDT [facility] Card Tape Converter Operator ID Parvezshell Ngozi 08/18/2024 3:53 PM EDT [facility] Device ID [id number] 08/18/2024 3:53 PM EDT [facility] POCT Sample Site PA 08/18/2024 3:53 PM EDT [facility] POCT Total Hemoglobin 9.7(L) 11.2 - 15.7 g/dL 08/18/2024 3:53 PM EDT [facility] 08/18/2024 3:52 PM EDT 08/18/2024 3:53 PM EDT Kenneth James MD LAB POINT OF CARE TE ST DOCKED DEVICE UNSOLICITED RESULTS Final Result [facility] [address] [place] [address] * (ABNORMAL) POCT CO-Oximitry, Venous (08/18/2024 3:50 PM EDT) [facility] POCT OXYHEMOGLOBIN, VENOUS 65 40 - 70 % 08/18/2024 3:50 PM EDT [facility] Card Tape Converter Operator ID Parvezparishbhavana Ngozi 08/18/2024 3:50 PM EDT [facility] LAB Device ID [id number] 08/18/2024 3:50 PM EDT [facility] POCT Sample Site -SELECT- 08/18/2024 3:50 PM EDT [facility] POCT Total Hemoglobin 9.7(L) 11.2 - 15.7 g/dL 08/18/2024 3:50 PM EDT [facility] Venous blood specimen / Unknown 08/18/2024 3:50 PM EDT 08/18/2024 3:50 PM EDT Kenneth James MD LAB POINT OF CARE TE ST DOCKED DEVICE UNSOLICITED RESULTS Final Result Performing Organization Address City/[facility]/ZIP Co de Phone Number [facility] [address] [place] [address] * (ABNORMAL) POCT glucose meter (08/18/2024 11:26 AM EDT) [facility] POCT Glucose 352(H) 74 - 99 [...] 08/18/2024 11:34 AM EDT [facility] Card Tape Converter Operator ID Partha Zhu 08/19/19 11:34 AM EDT [facility] Device ID [id number] 08/18/2024 11:34 AM EDT [facility] Specimen Type POC Capillary 08/18/2024 11:34 AM EDT [facility] Blood Capillary blood specimen / Unknown 08/18/2024 11:26 AM EDT 08/18/2024 11:34 AM EDT Kenneth James MD LAB POINT OF CARE TE ST DOCKED DEVICE UNSOLICITED RESULTS Final Result [facility] [address] [place] [address] * (ABNORMAL) POCT glucose meter (08/18/2024 7:30 AM EDT) POCT Glucose 267(H) 74 - 99 mg/dL [...] 08/18/2024 7:43 AM EDT [facility] Card Tape Converter Operator ID Partha Zhu 08/19/19 7:43 AM EDT [facility]ALTH[facility] LAB Device ID [id number] 08/18/2024 7:43 AM EDT [facility] Specimen Type POC Capillary 08/18/2024 7:43 AM EDT [facility] Blood Capillary blood specimen / Unknown 08/18/2024 7:30 AM EDT 08/18/2024 7:43 AM EDT Kenneth James MD LAB POINT OF CARE TE ST DOCKED DEVICE UNSOLICITED RESULTS Final Result [facility] [address] [place] [address] * XR Chest 1 View (08/18/2024 6:25 [...] MD on 08/18/2024 7:47 AM us Boby Rouse SCHEDULING ASSISTANT IMG XR PROCEDURES Final Res ult * [...] for testing. Comment 08/18/2024 3:10 AM EDT [facility] Card Tape Converter Operator ID Veronica Kellogg 025 3:10 AM EDT [facility] LAB Device ID [id number] 08/18/2024 3:10 AM EDT [facility] Specimen Type POC Capillary 08/18/2024 3:10 AM EDT [facility] Blood Capillary blood specimen / Unknown 08/18/2024 3:08 AM EDT 08/18/2024 3:10 AM EDT Kenneth James MD LAB POINT OF CARE TE ST DOCKED DEVICE UNSOLICITED RESULTS Final Result [facility] [address] [place] [address] * (ABNORMAL) POCT glucose meter (08/18/2024 1:52 [...] Comment 08/18/2024 1:54 AM EDT [facility] Card Tape Converter Operator ID Becca Mittal 1:54 AM EDT [facility]ALTH[facility] LAB Device ID [id number] 08/18/2024 1:54 AM EDT [facility] Specimen Type POC Capillary 08/18/2024 1:54 AM EDT [facility] Blood Capillary blood specimen / Unknown 08/18/2024 1:52 AM EDT 08/18/2024 1:54 AM EDT Kenneth James MD LAB POINT OF CARE TE ST DOCKED DEVICE UNSOLICITED RESULTS Final Result Performing Organization Address City/State/[facility] Co de Phone Number [facility]ARE LAB [address] [place] [address] * (ABNORMAL) Prothrombin Time/INR (08/18/2024 1:18 AM EDT) [facility] Prothrombin Time 16.8(H) 12.0 - 14.3 sec LAB COAGULATION METHOD 08/18/2024 2:05 AM EDT [facility] INR 1.4(H) 0.9 - 1.1 LAB COAGULATION METHOD 08/18/2024 2:05 AM EDT [facility] Blood Venous blood specimen / Unknown Venipuncture / Unknown 08/18/2024 1:18 AM EDT 08/18/2024 1:37 AM EDT Narrative [facility] - 08/18/2024 2:05 AM EDT OPTIMAL INR RANGES FOR PATIENT ON ORAL ANTICOAGULANT THERAPY Prevention of venous thromboembolism INR 2.0 to 3.0 In patients with heart disease: Atrial fibrillation INR 2.0 to 3.0 Valvular heart disease INR 2.0 to 3.0 Tissue heart valves INR 2.0 to 3.0 Mechanical prosthetic valves INR 2.5 to 3.5 Prevention of recurrent NM INR 2.5 to 3.5 us Kenneth James MD LAB BLOOD ORDERABLES Final Res ult [facility] [address] [place] [address] * Magnesium, Plasma (08/18/2024 1:18 AM EDT) Magnesium, Plasma 2.1 1.9 - 2.4 mg/dL 08/18/2024 2:07 AM EDT [facility] Blood Venous blood specimen / Unknown Venipuncture / Unknown 08/18/2024 1:18 AM EDT 08/18/2024 1:37 AM EDT us Kenneth James MD LAB BLOOD ORDERABLES Final Res ult Performing Organization Address City/[facility]/ZIP Co de Phone Number [facility] [address] [place] [address] * (ABNORMAL) Basic Metabolic Panel, Plasma (08/18/2024 1:18 AM EDT) Glucose, Plasma 211(H) 74 - 99 mg/dL 08/18/2024 2:07 AM EDT [facility] BUN, Plasma 26(H) 8 - 23 mg/dL 08/18/2024 2:07 AM EDT [facility] Creatinine, Plasma 1.15(H) 0.60 - 1.10 mg/dL 08/18/2024 2:07 AM EDT [facility] BUN/Creatinine Ratio 23 08/18/2024 2:07 AM EDT [facility] Sodium, Plasma 132(L) 136 - 145 mmol/L 08/18/2024 2:07 AM EDT [facility] Potassium, Plasma 4.4 3.6 - 4.9 mmol/L 08/18/2024 2:07 AM EDT [facility] Chloride, Plasma 90(L) 97 - 107 mmol/L 08/18/2024 2:07 AM EDT [facility] CO2, Plasma 30(H) 22 - 29 mmol/L 08/18/2024 2:07 AM EDT [facility] Anion Gap 12 6 - 16 mmol/L 08/18/2024 2:07 AM EDT [facility] Total Calcium, Plasma 8.8(L) 8.9 - 10.2 mg/dL 08/18/2024 2:07 AM EDT [facility] eGFRcr 50.4 mL/min/1.7 3m*2 08/18/2024 2:07 AM EDT [facility] Comment:Reported eGFRcr in m L/min/1.73m2 is based the CKD-EPI 2020 equation that does not use a race coefficient. Blood Venous blood specimen / Unknown Venipuncture / Unknown 08/18/2024 1:18 AM EDT 08/18/2024 1:37 AM EDT Kenneth James MD LAB BLOOD ORDERABLES Final Res ult [facility] [address] [place] [address] * (ABNORMAL) POCT glucose meter (08/18/2024 12:56 AM EDT) POCT Glucose 58(L) 74 - 99 mg/dL 08/18/2024 12:57 AM EDT [facility]ALTH[facility] Comment:Accuracy of a [...] Comment 08/18/2024 12:57 AM EDT [facility] Card Tape Converter Operator ID Veronica Kellogg 025 12:57 AM EDT [facility]ALTH[facility]ARE LAB Device ID [id number] 08/18/2024 12:57 AM EDT [facility] Specimen Type POC Capillary 08/18/2024 12:57 AM EDT [facility] Blood Capillary blood specimen / Unknown 08/18/2024 12:56 AM EDT 08/18/2024 12:57 AM EDT Kenneth James MD LAB POINT OF CARE TE ST DOCKED DEVICE UNSOLICITED RESULTS Final Result [facility] [address] [place] [address] * (ABNORMAL) POCT glucose meter (08/17/2024 8:34 PM EDT) Pathologist [facility] POCT Glucose 344(H) 74 - 99 mg/dL [...] Comment 08/17/2024 8:35 PM EDT [facility] Card Tape Converter Operator ID Veronica Kellogg 025 8:35 PM EDT HEALTHCARE LAB Device ID [id number] 08/17/2024 8:35 PM EDT [facility] Specimen Type POC Capillary 08/17/2024 8:35 PM EDT [facility] Blood Capillary blood specimen / Unknown 08/17/2024 8:34 PM EDT 08/17/2024 8:35 PM EDT Kenneth James MD LAB POINT OF CARE TE ST DOCKED DEVICE UNSOLICITED RESULTS Final Result Performing Organization Address City/[facility] Co de Phone Number [facility] [address] [place] [address] * (ABNORMAL) POCT glucose meter (08/17/2024 6:23 PM EDT) [facility] POCT Glucose 216(H) 74 - 99 [...] for testing. Comment 08/17/2024 6:24 PM EDT [facility] Card Tape Converter Operator ID Kimberly Hernadez 08/18/19 6:24 PM EDT HEALTH[facility]ARE LAB Device ID [id number] 08/17/2024 6:24 PM EDT [facility] Specimen Type POC Capillary 08/17/2024 6:24 PM EDT [facility] Blood Capillary blood specimen / Unknown 08/17/2024 6:23 PM EDT 08/17/2024 6:24 PM EDT Kenneth James MD LAB POINT OF CARE TE ST DOCKED DEVICE UNSOLICITED RESULTS Final Result Performing Organization Address City/[facility]/ZIP Co de Phone Number [facility] [address] [place] [address] * (ABNORMAL) POCT glucose meter (08/17/2024 4:28 PM EDT) POCT Glucose 149(H) 74 - 99 mg/dL [...] Comment 08/17/2024 4:39 PM EDT [facility] Card Tape Converter Operator ID Partha Zhu 08/18/19 4:39 PM EDT HEALTH[facility]ARE LAB Device ID [id number] 08/17/2024 4:39 PM EDT [facility] Specimen Type POC Capillary 08/17/2024 4:39 PM EDT [facility] Blood Capillary blood specimen / Unknown 08/17/2024 4:28 PM EDT 08/17/2024 4:39 PM EDT Kenneth James MD LAB POINT OF CARE TE ST DOCKED DEVICE UNSOLICITED RESULTS Final Result [facility] [address] [place] [address] * (ABNORMAL) POCT glucose meter (08/17/2024 11:43 AM EDT) POCT Glucose 415(H) 74 - 99 mg/dL [...] for testing. Comment 08/17/2024 11:50 AM EDT [facility] Card Tape Converter Operator ID Partha Zhu 08/18/19 11:50 AM EDT [facility]ALTH[facility] LAB Device ID [id number] 08/17/2024 11:50 AM EDT [facility] Specimen Type POC Capillary 08/17/2024 11:50 AM EDT [facility] Blood Capillary blood specimen / Unknown 08/17/2024 11:43 AM EDT 08/17/2024 11:50 AM EDT Kenneth James MD LAB POINT OF CARE TE ST DOCKED DEVICE UNSOLICITED RESULTS Final Result Performing Organization Address City/State/[facility] Co de Phone Number [facility] [address] [place] [address] * XR Chest 1 View (08/17/2024 11:26 [...] Macho Muir MD on 08/17/2024 11:45 AM us Boby Rouse SCHEDULING ASSISTANT IMG XR PROCEDURES Final Res ult * Body fluid, cytospin, pathologist interpretation (08/17/2024 10:58 AM EDT) Specimen Type Body Fluid LAB HEMATOLOGY METHOD 08/18/2024 1:12 PM EDT [facility] Specimen Source, Body Fluid Pleural, Right LAB HEMATOLOGY METHOD 08/18/2024 1:12 PM EDT [facility] Clinical Diagnosis, Body Fluid Pleural effusion LAB HEMATOLOGY METHOD 08/18/2024 1:12 PM EDT [facility] Interpretation , Body Fluid No evidence of malignancy; Predominantly chronic inflammatory cells, reactive mesothelial cells. Light blood A resident was involved in the service. I attest I examined the relevant preparations for the specimens and confirmed the diagnosis or interpretation. 08/18/2024 1:12 PM EDT [facility] Pathologist Signature, Body Fluid 08/18/2024 1:12 PM EDT [facility] Comment:Reviewed by: Spike Esteban MD LAB CP ASR DISCLAIMER Yes 08/18/2024 1:12 PM EDT [facility] Body Fluid Structure of right pleural cavity / Unknown Non-blood Collection / Unknown 08/17/2024 10:58 AM EDT 08/17/2024 11:11 AM EDT us Boby Rouse SCHEDULING ASSISTANT LAB BODY FLUIDS AND STOOLS ORDERABLES Final Result [facility] [address] [place] [address] * (ABNORMAL) Body Fluid Cell Count w/ Diff - Pleural Right (08/17/2024 10:58 AM EDT) Color, Body fluid Kay LAB HEMATOLOGY METHOD 08/17/2024 6:09 PM EDT [facility] Appearance, Body fluid Cloudy(A) LAB HEMATOLOGY METHOD 08/17/2024 6:09 PM EDT [facility] Volume, Body fluid 90.0 cc LAB HEMATOLOGY METHOD 08/17/2024 6:09 PM EDT [facility] Fluid Container Specimen received in miscellaneous container LAB HEMATOLOGY METHOD 08/17/2024 6:09 PM EDT [facility] Red Blood Cell Count, Body fluid 5,000 uL LAB HEMATOLOGY METHOD 08/17/2024 6:09 PM EDT [facility] Total Nucleated Cell Count, Body fluid 370 uL LAB HEMATOLOGY METHOD 08/17/2024 6:09 PM EDT [facility] Neutrophils %, Body fluid 17 % LAB HEMATOLOGY METHOD 08/17/2024 6:09 PM EDT [facility] Lymphocytes %, Body fluid 37 % LAB HEMATOLOGY METHOD 08/17/2024 6:09 PM EDT [facility] Monocytes/Macr ophages %, Body fluid 44 % LAB HEMATOLOGY METHOD 08/17/2024 6:09 PM EDT [facility] Eosinophils %, Body fluid 0 % LAB HEMATOLOGY METHOD 08/17/2024 6:09 PM EDT [facility] Lining/Mesothe lial Cells %, Body fluid 2 % LAB HEMATOLOGY METHOD 08/17/2024 6:09 PM EDT [facility] Neutrophils Absolute (PMN), Body fluid 63 uL LAB HEMATOLOGY METHOD 08/17/2024 6:09 PM EDT [facility] Lymphocytes Absolute, Body fluid 137 uL LAB HEMATOLOGY METHOD 08/17/2024 6:09 PM EDT [facility] Monocytes/Macr ophages Absolute, Body fluid 163 uL LAB HEMATOLOGY METHOD 08/17/2024 6:09 PM EDT [facility] Eosinophils Absolute, Body fluid 0 uL LAB HEMATOLOGY METHOD 08/17/2024 6:09 PM EDT [facility] Basophils Absolute, Body fluid 0 uL LAB HEMATOLOGY METHOD 08/17/2024 6:09 PM EDT [facility] Lining/Mesothe lial Cells Absolute, Body fluid 7 uL LAB HEMATOLOGY METHOD 08/17/2024 6:09 PM EDT [facility] Basophils %, Body fluid 0 % LAB HEMATOLOGY METHOD 08/17/2024 6:09 PM EDT [facility] Body Fluid Structure of right pleural cavity / Unknown Non-blood Collection / Unknown 08/17/2024 10:58 AM EDT 08/17/2024 11:11 AM EDT Boby Rouse APRN LAB BODY FLUIDS AND STOOLS ORDERABLES NO SPECIMEN TYPE/SOURCE Final Result [facility] [address] [place] [address] * Chylomicron Electrophoresis (Reflex Only) (08/17/2024 10:57 AM EDT) Chylomicron Electrophoresis Billed 08/25/2024 6:56 PM EDT [facility] ([facility]) Fluid Pleural fluid specimen / Unknown 08/17/2024 10:57 AM EDT 08/17/2024 11:10 AM EDT Narrative [facility] ([facility]) - 08/25/2024 6:56 PM EDT Performed By: [employer] [address] [place] [address] Eyeglass Fitter: Austin Bernal MD, PhD CLIA Number: [id number] Boby Rouse APRN LAB REF LAB BLOOD AND FLUID ORD Final Result [facility] ([facility]) [address] [place] [id number] * Amylase, Pleural Fluid (08/17/2024 10:57 AM EDT) Amylase, Pleural Fluid 6 U/L 08/17/2024 1:23 PM EDT [facility] Pleural Fluid Structure of right pleural cavity / Unknown Non-blood Collection / Unknown 08/17/2024 10:57 AM EDT 08/17/2024 11:08 AM EDT Narrative [facility] - 08/17/2024 1:23 PM EDT Reference Values: No established reference interval. Interpret with caution. This test was developed and its performance characteristics determined by [facility]. The U.S. Food and Drug [...] upper reference limit for serum and a pewpl-gm-eggvw amylase ratio greater than one. Note: Interpretive [...] plasma/serum results, and other clinical evidence. Kenneth James MD LAB BODY FLUIDS AND STOOLS ORD ERABLES Final Result [facility] [address] [place] [address] * Cholesterol Fluid Battery (08/17/2024 10:57 AM EDT) CHOLESTEROL, FLUID 28 mg/dL 08/19/2024 1:48 PM EDT [facility] ([facility]) CHOLESTEROL FLUID SOURCE Pleural fluid 08/19/2024 1:48 PM EDT [facility] ([facility]) Pleural Fluid Structure of right pleural cavity / Unknown Non-blood Collection / Unknown 08/17/2024 10:57 AM EDT 08/17/2024 11:10 AM EDT Narrative [facility] ([facility]) - 08/19/2024 1:48 PM EDT INTERPRETIVE INFORMATION: Cholesterol, Body Fluid For information on body fluid reference ranges and/or interpretive guidance visit [email or web address]/[email or web address]/ This test was developed and its performance characteristics determined by [employer]. It has not been cleared or approved by the [place] Food and Drug Administration. This test was performed in a CLIA certified laboratory and is intended for clinical purposes. Performed By: [facility] [employer] [address] [place] [address] Eyeglass Fitter: Austin Bernal MD, PhD CLIA Number: [id number] Boby Rouse APRN LAB REF LAB BLOOD AND FLUID ORD Final Result Performing Organization Address [facility]/ZIP Co de Phone Number [facility] ([place] [address] * Adenosine Deaminase,Pleural Fluid (08/17/2024 10:57 AM EDT) ADA, Pleural Fluid 5 0 - 30 U/L 08/19/2024 3:10 PM EDT [facility] ([facility]) Pleural Fluid Structure of right pleural cavity / Unknown Non-blood Collection / Unknown 08/17/2024 10:57 AM EDT 08/17/2024 11:10 AM EDT [address] [facility]) - 08/19/2024 3:10 PM EDT INTERPRETIVE INFORMATION:Adenosine Deaminase, Pleural Fluid This test was developed and its performance characteristics determined by [employer]. It has not been cleared or approved by the US Food and Drug Administration. This test was performed in a CLIA certified laboratory and is intended for clinical purposes. Performed By: [facility] [address] [place] [address] Eyeglass Fitter: Austin Bernal MD, PhD CLIA Number: [id number] Boby Rouse APRN LAB BODY FLUIDS AND STOOLS ORDERABLES Final Result Performing Organization Address [facility]/ZIP Co de Phone Number [facility] ([facility]) [address] [place] [address] * (ABNORMAL) pH, pleural fluid (08/17/2024 10:57 AM EDT) pH, Pleural Fluid 7.49(L) 7.60 - 7.66 LAB HEMATOLOGY METHOD 08/17/2024 11:17 AM EDT [facility] Pleural Fluid Pleural fluid specimen / Unknown Non-blood Collection / Unknown 08/17/2024 10:57 AM EDT 08/17/2024 11:13 AM EDT Narrative [facility] - 08/17/2024 11:17 AM EDT Normal [...] and its performance characteristics determined by the [facility]. Pleural pH is measured by [...] BODY FLUIDS AND STOOLS ORDERABLES Final Result [facility] [address] [place] [address] * Triglycerides BF with RFLX to CHYLO (SO) (08/17/2024 10:57 AM EDT) Triglyceride, Fluid 27 mg/dL 08/25/2024 6:56 PM EDT [facility] ([facility]) Triglyceride Fluid Source Pleural fluid 08/25/2024 6:56 PM EDT [facility] ([facility]) Chylomicron Screen, Body Fluid Absent Absent 08/25/2024 6:56 PM EDT [facility] ([facility]) Fluid Pleural fluid specimen / Unknown 08/17/2024 10:57 AM EDT 08/17/2024 11:10 AM EDT Narrative [facility] ([facility]) - 08/25/2024 6:56 PM EDT INTERPRETIVE INFORMATION: Triglycerides, Fluid For information on body fluid reference ranges and/or interpretive guidance visit [email or web address]/[email or web address]/ This test was developed and its performance characteristics determined by [employer]. It has not been cleared or approved by the US Food and Drug Administration. This test was performed in a CLIA certified laboratory and is intended for clinical purposes. Chylomicrons were not detected. This appears to be a nonchylous fluid. INTERPRETIVE INFORMATION: Chylomicron Screen, Body Fluid This test was developed and its performance characteristics determined by [employer]. It has not been cleared or approved by the U.S. Food and Drug Administration. This test was performed in a CLIA-certified laboratory and is intended for clinical purposes. Performed By: [employer] [address] [place] [address] Eyeglass Fitter: Austin Bernal MD, PhD CLIA Number: [id number] Boby Rouse APRN LAB REF LAB BLOOD AND FLUID ORD Final Result [facility] ([facility]) [address] [place] [address] * Cytology - Pleural Right (08/17/2024 10:57 AM EDT) Case Report Cytology Case: [id number] Authorizing Provider: Boby Rouse APRN Collected: 08/17/2024 1057 Ordering Location: [facility] Inpatient Received: 08/17/2024 1347 Pathologist: Jayme Duran MD Specimen: Pleural Fluid, Right, RIGHT PLEURAL FLUID 08/20/2024 2:29 PM EDT [facility] Final Diagnosis A. RIGHT PLEURAL FLUID - PREDOMINANTLY CHRONIC INFLAMMATION IN A BACKGROUND OF REACTIVE MESOTHELIAL CELLS AND HISTIOCYTES - NEGATIVE FOR MALIGNANCY 08/20/2024 2:29 PM EDT [facility] at 1429 EDT Clinical History Pleural effusion 08/20/2024 2:29 PM EDT [facility] Previous Cancer Primary Site Other/Unknown Primary Site 08/20/2024 2:29 PM EDT [facility] Gross Description A. RIGHT PLEURAL FLUID 100 ml's laurent fluid processed as thin prep and cell block Cold Time: 5h 02m 08/20/2024 2:29 PM EDT [facility] Fluid Structure of right pleural cavity / Unknown 08/17/2024 10:57 AM EDT 08/17/2024 1:47 PM EDT Boby Rouse APRN LAB CYTOLOGY ORDERABLES Fin al Result [facility] [address] [place] [address] * Glucose - Pleural Right (08/17/2024 10:57 AM EDT) Glucose, Fluid 309 mg/dL 08/17/2024 1:14 PM EDT [facility] Pleural Fluid Structure of right pleural cavity / Unknown Non-blood Collection / Unknown 08/17/2024 10:57 AM EDT 08/17/2024 11:08 AM EDT Narrative [facility] - 08/17/2024 1:14 PM EDT Pleural [...] STOOLS ORDERABLES Final Result Performing Organization Address City/[facility] Co de Phone Number [facility] [address] [place] [address] * Albumin - Pleural Right (08/17/2024 10:57 AM EDT) Albumin, Pleural Fluid 1.8 g/dL 08/17/2024 1:14 PM EDT [facility] Pleural Fluid Structure of right pleural cavity / Unknown Non-blood Collection / Unknown 08/17/2024 10:57 AM EDT 08/17/2024 11:08 AM EDT Narrative [facility] - 08/17/2024 1:14 PM EDT REPORTING RESULTS Reference Values: No established reference interval. Results should be interpreted in comparison to the concentration in blood and in conjunction with the clinical context. This test was developed and its performance characteristics determined by [facility]. The U.S. Food and Drug Administration has not approved or cleared this test; however, FDA clearance or approval is not currently required for clinical use. The results are not intended to be used as the sole means for clinical diagnosis or patient management decisions. Boby Rouse APRN LAB BODY FLUIDS AND STOOLS ORDERABLES Final Result [facility] [address] [place] [address] * Lactate Dehydrogenase, Pleural Fluid - Right (08/17/2024 10:57 AM EDT) LDH, Fluid 121 U/L 08/17/2024 1:14 PM EDT [facility] Pleural Fluid Structure of right pleural cavity / Unknown Non-blood Collection / Unknown 08/17/2024 10:57 AM EDT 08/17/2024 11:08 AM EDT Narrative [facility] - 08/17/2024 1:14 PM EDT No [...] the following criteria are present: (1) pleural oehrn-gt-cirvx protein ratio of >0.5, (2) pleural yujvk-bj-ilero LDH ratio of >0.6, or (3) a pleural fluid LDH activity that is >2/3 the upper limit of a normal serum LDH activity. Light's criteria may misclassify ~25% of transudates as exudates in heart failure. These can be identified by calculating a jpzir-fl-amhbych albumin gradient (>1.2 g/dL) and/or a xitbs-fr-agifw protein gradient (>3.1 g/dL). Boby Rouse APRN LAB BODY FLUIDS AND STOOLS ORDERABLES Final Result Performing Organization Address [facility] de Phone Number [facility] [address] [place] [address] * Total Protein, Pleural Fluid - Pleural Right (08/17/2024 10:57 AM EDT) Total Protein, Fluid 3.1 g/dL 08/17/2024 1:14 PM EDT [facility] Pleural Fluid Structure of right pleural cavity / Unknown Non-blood Collection / Unknown 08/17/2024 10:57 AM EDT 08/17/2024 11:08 AM EDT Narrative [facility] - 08/17/2024 1:14 PM EDT This test was developed and its performance characteristics determined by [facility]. The U.S. Food and Drug Administration has not approved or cleared this test. However, FDA clearance or approval is not currently required for clinical use. The results are not intended to be used as the sole means for clinical diagnosis or patient management decisions. Boby Rouse APRN LAB BODY FLUIDS AND STOOLS ORDERABLES Final Result Performing Organization Address [facility] de Phone Number [facility] [address] [place] [address] * Body Fluid Culture and Gram Stain - Pleural Right (08/17/2024 10:57 AM EDT) Culture No growth at day 4 2024 8:02 AM EDT [facility] Gram Stain Result Few Polymorphonuclear leukocytes 08/20/2024 8:02 AM EDT [facility] Gram Stain Result No organisms seen 08/20/2024 8:02 AM EDT [facility] Pleural Fluid Specimen from pleura obtained by thoracentesis / Unknown Non-blood Collection / Unknown 08/17/2024 10:57 AM EDT 08/17/2024 11:14 AM EDT us Boby Rouse APRN LAB MICROBIOLOGY - GENERAL ORDERABLES Final Result Performing Organization Address City/[facility]/ZIP Co de Phone Number [facility] [address] [place] [address] * (ABNORMAL) POCT glucose meter (08/17/2024 7:39 [...] for testing. Comment 08/17/2024 7:51 AM EDT [facility] Card Tape Converter Operator ID Partha Zhu 08/18/19 7:51 AM EDT [facility] Device ID [id number] 08/17/2024 7:51 AM EDT [facility] Specimen Type POC Capillary 08/17/2024 7:51 AM EDT [facility] Blood Capillary blood specimen / Unknown 08/17/2024 7:39 AM EDT 08/17/2024 7:51 AM EDT us Kenneth James MD LAB POINT OF CARE TE ST DOCKED DEVICE UNSOLICITED RESULTS Final Result Performing Organization Address City/[facility]/ZIP Co de Phone Number [facility] [address] [place] [address] * (ABNORMAL) Prothrombin Time/INR (08/17/2024 4:28 AM EDT) Prothrombin Time 18.7(H) 12.0 - 14.3 sec LAB COAGULATION METHOD 08/17/2024 4:58 AM EDT [facility] INR 1.5(H) 0.9 - 1.1 LAB COAGULATION METHOD 08/17/2024 4:58 AM EDT [facility] Blood Venous blood specimen / Unknown Venipuncture / Unknown 08/17/2024 4:28 AM EDT 08/17/2024 4:42 AM EDT Narrative [facility] - 08/17/2024 4:58 AM EDT OPTIMAL INR RANGES FOR PATIENT ON ORAL ANTICOAGULANT THERAPY Prevention of venous thromboembolism INR 2.0 to 3.0 In patients with heart disease: Atrial fibrillation INR 2.0 to 3.0 Valvular heart disease INR 2.0 to 3.0 Tissue heart valves INR 2.0 to 3.0 Mechanical prosthetic valves INR 2.5 to 3.5 Prevention of recurrent NM INR 2.5 to 3.5 us Kenneth James MD LAB BLOOD ORDERABLES Final Res ult [facility] [address] [place] [address] * (ABNORMAL) CBC W/O Differential (08/17/2024 4:28 AM EDT) WBC Count 5.50 3.70 - 10.30 10*3/uL LAB HEMATOLOGY METHOD 08/17/2024 4:52 AM EDT [facility] RBC Count 3.46(L) 3.90 - 5.20 10*6/uL LAB HEMATOLOGY METHOD 08/17/2024 4:52 AM EDT [facility] HGB 10.1(L) 11.2 - 15.7 g/dL LAB HEMATOLOGY METHOD 08/17/2024 4:52 AM EDT [facility] HCT 32.2(L) 34.0 - 45.0 % LAB HEMATOLOGY METHOD 08/17/2024 4:52 AM EDT [facility] Platelet Count 396(H) 155 - 369 10*3/uL LAB HEMATOLOGY METHOD 08/17/2024 4:52 AM EDT [facility] MCV 93 79 - 98 fL LAB HEMATOLOGY METHOD 08/17/2024 4:52 AM EDT [facility] MCH 29.2 26.0 - 32.0 pg LAB HEMATOLOGY METHOD 08/17/2024 4:52 AM EDT [facility] MCHC 31.4 30.7 - 35.5 g/dL LAB HEMATOLOGY METHOD 08/17/2024 4:52 AM EDT [facility] RDW 14.2 11.5 - 14.5 % LAB HEMATOLOGY METHOD 08/17/2024 4:52 AM EDT [facility] MPV 9.3 8.8 - 12.5 fL LAB HEMATOLOGY METHOD 08/17/2024 4:52 AM EDT [facility] nRBC 0.0 <=0.0 per 100 WBCs LAB HEMATOLOGY METHOD 08/17/2024 4:52 AM EDT [facility] Blood Venous blood specimen / Unknown Venipuncture / Unknown 08/17/2024 4:28 AM EDT 08/17/2024 4:42 AM EDT Doron Thayer MD LAB BLOOD ORDERABLES Final Resu lt Performing Organization Address [facility]/ZIP Co de Phone Number [facility] [address] [place] [address] * (ABNORMAL) Magnesium (08/17/2024 4:28 AM EDT) Magnesium, Plasma 1.8(L) 1.9 - 2.4 mg/dL 08/17/2024 5:15 AM EDT [facility] Blood Venous blood specimen / Unknown Venipuncture / Unknown 08/17/2024 4:28 AM EDT 08/17/2024 4:42 AM EDT Doron Thayer MD LAB BLOOD ORDERABLES Final Resu lt Performing Organization Address City/[facility]/ZIP Co de Phone Number [facility] [address] [place] [address] * (ABNORMAL) Comprehensive metabolic panel (08/17/2024 4:28 AM EDT) Glucose, Plasma 216(H) 74 - 99 mg/dL 08/17/2024 5:15 AM EDT [facility] BUN, Plasma 22 8 - 23 mg/dL 08/17/2024 5:15 AM EDT [facility] Creatinine, Plasma 0.98 0.60 - 1.10 mg/dL 08/17/2024 5:15 AM EDT [facility] BUN/Creatinine Ratio 22 08/17/2024 5:15 AM EDT [facility] Sodium, Plasma 135(L) 136 - 145 mmol/L 08/17/2024 5:15 AM EDT [facility] Potassium, Plasma 3.4(L) 3.6 - 4.9 mmol/L 08/17/2024 5:15 AM EDT [facility] Chloride, Plasma 91(L) 97 - 107 mmol/L 08/17/2024 5:15 AM EDT [facility] CO2, Plasma 33(H) 22 - 29 mmol/L 08/17/2024 5:15 AM EDT [facility] Anion Gap 11 6 - 16 mmol/L 08/17/2024 5:15 AM EDT [facility] Total Calcium, Plasma 9.0 8.9 - 10.2 mg/dL 08/17/2024 5:15 AM EDT [facility] Total Protein 7.3 6.3 - 7.9 g/dL 08/17/2024 5:15 AM EDT [facility] Albumin, Plasma 3.3(L) 3.5 - 5.2 g/dL 08/17/2024 5:15 AM EDT [facility] AST, Plasma 29 10 - 35 U/L 08/17/2024 5:15 AM EDT [facility] ALT, Plasma 19 10 - 35 U/L 08/17/2024 5:15 AM EDT [facility] Alkaline Phosphatase, Plasma 100 46 - 142 U/L 08/17/2024 5:15 AM EDT [facility] Total Bilirubin, Plasma 0.4 0.2 - 1.1 mg/dL 08/17/2024 5:15 AM EDT [facility] eGFRcr 61.1 mL/min/1.7 3m*2 08/17/2024 5:15 AM EDT [facility] Comment:Reported eGFRcr in m L/min/1.73m2 is based the CKD-EPI 2020 equation that does not use a race coefficient. Blood Venous blood specimen / Unknown Venipuncture / Unknown 08/17/2024 4:28 AM EDT 08/17/2024 4:42 AM EDT us Doron Thayer MD LAB BLOOD ORDERABLES Final Resu lt [facility] [address] [place] [address] * (ABNORMAL) Lactate dehydrogenase (08/17/2024 4:28 AM EDT) [facility] LDH, Plasma 322(H) 116 - 250 U/L 08/17/2024 5:15 AM EDT [facility] Blood Venous blood specimen / Unknown Venipuncture / Unknown 08/17/2024 4:28 AM EDT 08/17/2024 4:42 AM EDT us Boby Rouse APRN LAB BLOOD ORDERABLES Final Result Performing Organization Address [facility] Co de Phone Number [facility] [address] [place] [address] * (ABNORMAL) POCT glucose meter (08/16/2024 8:03 PM EDT) [facility] POCT Glucose 356(H) 74 - 99 mg/dL 08/16/2024 8:05 PM EDT [facility] Comment:Accuracy of a [...] for testing. Comment 08/16/2024 8:05 PM EDT [facility] Card Tape Converter Operator ID Joe Del Real 08/16/2024 8:05 PM EDT [facility] Device ID [id number] 08/16/2024 8:05 PM EDT [facility] Specimen Type POC Capillary 08/16/2024 8:05 PM EDT [facility] Blood Capillary blood specimen / Unknown 08/16/2024 8:03 PM EDT 08/16/2024 8:05 PM EDT us Doron Thayer MD LAB POINT OF CARE TE ST DOCKED DEVICE UNSOLICITED RESULTS Final Result Performing Organization Address City/[facility]/ZIP Co de Phone Number [facility] [address] [place] [address] * (ABNORMAL) POCT glucose meter (08/16/2024 4:12 PM EDT) Pathologist [facility] POCT Glucose 173(H) 74 - 99 mg/dL [...] Comment 08/16/2024 4:14 PM EDT [facility] Card Tape Converter Operator ID Paula Wright 4:14 PM EDT [facility] Device ID [id number] 08/16/2024 4:14 PM EDT [facility] Specimen Type POC Capillary 08/16/2024 4:14 PM EDT [facility] Blood Capillary blood specimen / Unknown 08/16/2024 4:12 PM EDT 08/16/2024 4:14 PM EDT us Doron Thayer MD LAB POINT OF CARE TE ST DOCKED DEVICE UNSOLICITED RESULTS Final Result Performing Organization Address City/State/[facility] Co de Phone Number [facility] [address] [place] [address] * (ABNORMAL) POCT glucose meter (08/16/2024 11:03 AM EDT) Pathologist [facility] POCT Glucose 217(H) 74 - 99 mg/dL [...] for testing. Comment 08/16/2024 11:05 AM EDT [facility] Card Tape Converter Operator ID Alicia Licea 025 11:05 AM EDT [facility] Device ID [id number] 08/16/2024 11:05 AM EDT [facility] Specimen Type POC Capillary 08/16/2024 11:05 AM EDT [facility] Blood Capillary blood specimen / Unknown 08/16/2024 11:03 AM EDT 08/16/2024 11:05 AM EDT Doron Thayer MD LAB POINT OF CARE TE ST DOCKED DEVICE UNSOLICITED RESULTS Final Result Performing Organization Address City/[facility]/ZIP Co de Phone Number [facility] [address] [place] [address] * (ABNORMAL) POCT glucose meter (08/16/2024 7:44 [...] Comment 08/16/2024 7:52 AM EDT [facility] Card Tape Converter Operator ID Paula Wright 7:52 AM EDT [facility] Device ID [id number] 08/16/2024 7:52 AM EDT [facility] Specimen Type POC Capillary 08/16/2024 7:52 AM EDT [facility] Blood Capillary blood specimen / Unknown 08/16/2024 7:44 AM EDT 08/16/2024 7:52 AM EDT us Doron Thayer MD LAB POINT OF CARE TE ST DOCKED DEVICE UNSOLICITED RESULTS Final Result Performing Organization Address City/[facility]/ZIP Co de Phone Number [facility] [address] [place] [address] * (ABNORMAL) Prothrombin Time/INR (08/16/2024 1:46 AM EDT) Prothrombin Time 24.3(H) 12.0 - 14.3 sec 08/16/2024 2:01 AM EDT [facility] INR 2.2(H) 0.9 - 1.1 08/16/2024 2:01 AM EDT [facility] Blood Venous blood specimen / Unknown Venipuncture / Unknown 08/16/2024 1:46 AM EDT 08/16/2024 1:48 AM EDT Narrative [facility] - 08/16/2024 2:01 AM EDT OPTIMAL INR RANGES FOR PATIENT ON ORAL ANTICOAGULANT THERAPY Prevention of venous thromboembolism INR 2.0 to 3.0 In patients with heart disease: Atrial fibrillation INR 2.0 to 3.0 Valvular heart disease INR 2.0 to 3.0 Tissue heart valves INR 2.0 to 3.0 Mechanical prosthetic valves INR 2.5 to 3.5 Prevention of recurrent NM INR 2.5 to 3.5 us Kenneth James MD LAB BLOOD ORDERABLES Final Res ult [facility] [address] [place] [address] * (ABNORMAL) CBC W/O Differential (08/16/2024 1:46 AM EDT) WBC Count 6.57 3.70 - 10.30 10*3/uL LAB HEMATOLOGY METHOD 08/16/2024 1:50 AM EDT [facility] RBC Count 3.22(L) 3.90 - 5.20 10*6/uL LAB HEMATOLOGY METHOD 08/16/2024 1:50 AM EDT [facility] HGB 9.6(L) 11.2 - 15.7 g/dL LAB HEMATOLOGY METHOD 08/16/2024 1:50 AM EDT [facility] HCT 29.6(L) 34.0 - 45.0 % LAB HEMATOLOGY METHOD 08/16/2024 1:50 AM EDT [facility] Platelet Count 376(H) 155 - 369 10*3/uL LAB HEMATOLOGY METHOD 08/16/2024 1:50 AM EDT [facility] MCV 92 79 - 98 fL LAB HEMATOLOGY METHOD 08/16/2024 1:50 AM EDT [facility] MCH 29.8 26.0 - 32.0 pg LAB HEMATOLOGY METHOD 08/16/2024 1:50 AM EDT [facility] MCHC 32.4 30.7 - 35.5 g/dL LAB HEMATOLOGY METHOD 08/16/2024 1:50 AM EDT [facility] RDW 14.3 11.5 - 14.5 % LAB HEMATOLOGY METHOD 08/16/2024 1:50 AM EDT [facility] MPV 9.3 8.8 - 12.5 fL LAB HEMATOLOGY METHOD 08/16/2024 1:50 AM EDT [facility] nRBC 0.0 <=0.0 per 100 WBCs LAB HEMATOLOGY METHOD 08/16/2024 1:50 AM EDT [facility] Blood Venous blood specimen / Unknown Venipuncture / Unknown 08/16/2024 1:46 AM EDT 08/16/2024 1:48 AM EDT us Doron Thayer MD LAB BLOOD ORDERABLES Final Resu lt Performing Organization Address City/[facility]/ZIP Co de Phone Number [facility] [address] [place] [address] * (ABNORMAL) Magnesium (08/16/2024 1:46 AM EDT) Magnesium, Plasma 1.5(L) 1.9 - 2.4 mg/dL 08/16/2024 2:28 AM EDT [facility] Blood Venous blood specimen / Unknown Venipuncture / Unknown 08/16/2024 1:46 AM EDT 08/16/2024 1:57 AM EDT us Doron Thayer MD LAB BLOOD ORDERABLES Final Resu lt [facility] [address] [place] [address] * (ABNORMAL) Basic metabolic panel (08/16/2024 1:46 AM EDT) Glucose, Plasma 271(H) 74 - 99 mg/dL 08/16/2024 2:28 AM EDT [facility] BUN, Plasma 19 8 - 23 mg/dL 08/16/2024 2:28 AM EDT [facility] Creatinine, Plasma 0.82 0.60 - 1.10 mg/dL 08/16/2024 2:28 AM EDT [facility] BUN/Creatinine Ratio 23 08/16/2024 2:28 AM EDT [facility] Sodium, Plasma 132(L) 136 - 145 mmol/L 08/16/2024 2:28 AM EDT [facility] Potassium, Plasma 4.0 3.6 - 4.9 mmol/L 08/16/2024 2:28 AM EDT [facility] Chloride, Plasma 96(L) 97 - 107 mmol/L 08/16/2024 2:28 AM EDT [facility] CO2, Plasma 27 22 - 29 mmol/L 08/16/2024 2:28 AM EDT [facility] Anion Gap 9 6 - 16 mmol/L 08/16/2024 2:28 AM EDT [facility] Total Calcium, Plasma 8.5(L) 8.9 - 10.2 mg/dL 08/16/2024 2:28 AM EDT [facility] eGFRcr 75.6 mL/min/1.7 3m*2 08/16/2024 2:28 AM EDT [facility] Comment:Reported eGFRcr in m L/min/1.73m2 is based the CKD-EPI 2020 equation that does not use a race coefficient. Blood Venous blood specimen / Unknown Venipuncture / Unknown 08/16/2024 1:46 AM EDT 08/16/2024 1:57 AM EDT Doron Thayer MD LAB BLOOD ORDERABLES Final Resu lt [facility] [address] [place] [address] * (ABNORMAL) POCT glucose meter (08/15/2024 9:37 PM EDT) POCT Glucose 235(H) 74 - 99 mg/dL 08/15/2024 9:38 PM EDT [facility] Comment:Accuracy of a glucos e [...] 08/15/2024 9:38 PM EDT [facility] Card Tape Converter Operator ID Laura Cope 08/15/2024 9:38 PM EDT [facility] Device ID [id number] 08/15/2024 9:38 PM EDT [facility] Specimen Type POC Capillary 08/15/2024 9:38 PM EDT [facility] Blood Capillary blood specimen / Unknown 08/15/2024 9:37 PM EDT 08/15/2024 9:38 PM EDT us Doron Thayer MD LAB POINT OF CARE TE ST DOCKED DEVICE UNSOLICITED RESULTS Final Result Performing Organization Address City/[facility]/ZIP Co de Phone Number [facility] [address] [place] [address] * (ABNORMAL) POCT glucose meter (08/15/2024 6:03 PM EDT) [facility] POCT Glucose 184(H) 74 - 99 [...] Comment 08/15/2024 6:06 PM EDT [facility] Card Tape Converter Operator ID Hoda Skinner 025 6:06 PM EDT [facility] Device ID [id number] 08/15/2024 6:06 PM EDT [facility] Specimen Type POC Capillary 08/15/2024 6:06 PM EDT [facility] Blood Capillary blood specimen / Unknown 08/15/2024 6:03 PM EDT 08/15/2024 6:06 PM EDT us Arben Ibarra MD LAB POINT OF CARE TE ST DOCKED DEVICE UNSOLICITED RESULTS Final Result [facility] [address] [place] [address] * (ABNORMAL) POCT glucose meter (08/15/2024 4:20 PM EDT) [facility] POCT Glucose 204(H) 74 - 99 [...] Comment 08/15/2024 4:26 PM EDT [facility] Card Tape Converter Operator ID SusanneLiaa 025 4:26 PM EDT [facility] Device ID [id number] 08/15/2024 4:26 PM EDT [facility] Specimen Type POC Capillary 08/15/2024 4:26 PM EDT [facility] Blood Capillary blood specimen / Unknown 08/15/2024 4:20 PM EDT 08/15/2024 4:26 PM EDT Arben Ibarra MD LAB POINT OF CARE TE ST DOCKED DEVICE UNSOLICITED RESULTS Final Result [facility] [address] [place] [address] * (ABNORMAL) POCT glucose meter (08/15/2024 1:00 PM EDT) [facility] POCT Glucose 134(H) 74 - 99 [...] 08/15/2024 1:02 PM EDT [facility] Card Tape Converter Operator ID SusanneArturHoda 025 1:02 PM EDT [facility] Device ID [id number] 08/15/2024 1:02 PM EDT [facility] Specimen Type POC Capillary 08/15/2024 1:02 PM EDT [facility] Blood Capillary blood specimen / Unknown 08/15/2024 1:00 PM EDT 08/15/2024 1:02 PM EDT Arben Ibarra MD LAB POINT OF CARE TE ST DOCKED DEVICE UNSOLICITED RESULTS Final Result Performing Organization Address City/[facility]/ZIP Co de Phone Number [facility] [address] [place] [address] * (ABNORMAL) POCT glucose meter (08/15/2024 12:14 PM EDT) [facility] POCT Glucose 123(H) 74 - 99 [...] Comment 08/15/2024 12:20 PM EDT [facility] Card Tape Converter Operator ID Hoda Skinner 025 12:20 PM EDT [facility] Device ID [id number] 08/15/2024 12:20 PM EDT [facility] Specimen Type POC Capillary 08/15/2024 12:20 PM EDT [facility] Blood Capillary blood specimen / Unknown 08/15/2024 12:14 PM EDT 08/15/2024 12:20 PM EDT Arben Ibarra MD LAB POINT OF CARE TE ST DOCKED DEVICE UNSOLICITED RESULTS Final Result Performing Organization Address City/[facility]/ZIP Co de Phone Number [facility] [address] [place] [address] * XR Chest 1 View (08/15/2024 9:22 [...] QTC Interval 546 ms MUSE ECG R [place] -70 degrees MUSE ECG T Wave [place] 119 degrees MUSE ECG Diagnosis Ventricular-pa amber rhythm MUSE ECG Diagnosis Abnormal ECG MUSE ECG Diagnosis MUSE ECG Diagnosis Compared to last ECG MUSE ECG Diagnosis No significant change was found MUSE ECG Diagnosis Confirmed by Cristian Irwin ([id number]) on 08/15/2024 10:42:20 AM MUSE ECG 08/15/2024 8:51 AM EDT 08/15/2024 10:42 AM EDT Arben Ibarra MD ECG ORDERABLES Final Result Performing Organization Address City/[facility] Co de Phone Number MUSE ECG * (ABNORMAL) POCT glucose meter (08/15/2024 7:52 AM EDT) POCT Glucose 175(H) 74 - 99 mg/dL 08/15/2024 7:56 AM EDT [facility] Comment:Accuracy of a [...] for testing. Comment 08/15/2024 7:56 AM EDT [facility] Card Tape Converter Operator ID Susanne, Hoda 025 7:56 AM EDT [facility] [facility] Device ID [id number] 08/15/2024 7:56 AM EDT [facility] Specimen Type POC Capillary 08/15/2024 7:56 AM EDT [facility] Blood Capillary blood specimen / Unknown 08/15/2024 7:52 AM EDT 08/15/2024 7:56 AM EDT Arben Ibarra MD LAB POINT OF CARE TE ST DOCKED DEVICE UNSOLICITED RESULTS Final Result Performing Organization Address City/[facility] Co de Phone Number [facility] [address] [place] [address] * (ABNORMAL) POCT glucose meter (08/15/2024 6:27 [...] Comment 08/15/2024 6:29 AM EDT [facility] Card Tape Converter Operator ID Manuel Tabares 08/15/2024 6:29 AM EDT [facility] Device ID [id number] 08/15/2024 6:29 AM EDT [facility] Specimen Type POC Capillary 08/15/2024 6:29 AM EDT [facility] Blood Capillary blood specimen / Unknown 08/15/2024 6:27 AM EDT 08/15/2024 6:29 AM EDT us Arben Ibarra MD LAB POINT OF CARE TE ST DOCKED DEVICE UNSOLICITED RESULTS Final Result Performing Organization Address City/[facility] Co de Phone Number [facility] [address] [place] [address] * POCT glucose meter (08/15/2024 6:07 AM EDT) [facility] POCT Glucose 95 74 - 99 [...] Comment 08/15/2024 6:08 AM EDT [facility]ALTH[facility] Card Tape Converter Operator ID Manuel Tabares 08/15/2024 6:08 AM EDT [facility] Device ID [id number] 08/15/2024 6:08 AM EDT [facility] Specimen Type POC Capillary 08/15/2024 6:08 AM EDT [facility] Blood Capillary blood specimen / Unknown 08/15/2024 6:07 AM EDT 08/15/2024 6:08 AM EDT us Arben Ibarra MD LAB POINT OF CARE TE ST DOCKED DEVICE UNSOLICITED RESULTS Final Result Performing Organization Address City/[facility]/ZIP Co de Phone Number [facility]CARE [facility] [address] [place] [address] * (ABNORMAL) POCT glucose meter (08/15/2024 5:46 AM EDT) [facility] POCT Glucose 48(LL) 74 - 99 [...] Comment 08/15/2024 5:48 AM EDT [facility] Card Tape Converter Operator ID Manuel Tabares 08/15/2024 5:48 AM EDT [facility]ARE [facility] Device ID [id number] 08/15/2024 5:48 AM EDT [facility] Specimen Type POC Capillary 08/15/2024 5:48 AM EDT [facility] Blood Capillary blood specimen / Unknown 08/15/2024 5:46 AM EDT 08/15/2024 5:48 AM EDT Arben Ibarra MD LAB POINT OF CARE TE ST DOCKED DEVICE UNSOLICITED RESULTS Final Result Performing Organization Address City/State/[facility] Co de Phone Number [facility] [address] [place] [address] * (ABNORMAL) POCT glucose meter (08/15/2024 5:25 AM EDT) [facility] POCT Glucose 61(L) 74 - 99 mg/dL [...] for testing. Comment 08/15/2024 5:26 AM EDT [facility] Card Tape Converter Operator ID Manuel Tabares 08/15/2024 5:26 AM EDT [facility]ALTH[facility]ARE LAB Device ID [id number] 08/15/2024 5:26 AM EDT [facility] Specimen Type POC Capillary 08/15/2024 5:26 AM EDT [facility] Blood Capillary blood specimen / Unknown 08/15/2024 5:25 AM EDT 08/15/2024 5:26 AM EDT Arben Ibarra MD LAB POINT OF CARE TE ST DOCKED DEVICE UNSOLICITED RESULTS Final Result [facility] [address] [place] [address] * (ABNORMAL) Blood gas panel, arterial (08/15/2024 5:01 AM EDT) pH, Arterial 7.46(H) 7.31 - 7.42 LAB HEMATOLOGY METHOD 08/15/2024 5:14 AM EDT [facility] pCO2, Arterial 46 35 - 48 mmHg LAB HEMATOLOGY METHOD 08/15/2024 5:14 AM EDT [facility] pO2, Arterial 70(L) >70 mmHg LAB HEMATOLOGY METHOD 08/15/2024 5:14 AM EDT [facility] SO2, Measured, Arterial 95 94 - 98 % LAB HEMATOLOGY METHOD 08/15/2024 5:14 AM EDT [facility] Base Excess, Arterial 7.4(H) -2.0 - 3.0 mmol/L LAB HEMATOLOGY METHOD 08/15/2024 5:14 AM EDT [facility] Bicarbonate, Calculated, Arterial 32(H) 22 - 26 mmol/L LAB HEMATOLOGY METHOD 08/15/2024 5:14 AM EDT [facility] Hematocrit, Whole Blood 30.3(L) 34.0 - 45.0 % LAB HEMATOLOGY METHOD 08/15/2024 5:14 AM EDT [facility] Sodium, Whole Blood 137 136 - 145 mmol/L LAB HEMATOLOGY METHOD 08/15/2024 5:14 AM EDT [facility] Potassium, Whole Blood 3.0(L) 3.6 - 4.9 mmol/L LAB HEMATOLOGY METHOD 08/15/2024 5:14 AM EDT [facility] Chloride, Whole Blood 96(L) 97 - 107 mmol/L LAB HEMATOLOGY METHOD 08/15/2024 5:14 AM EDT [facility] Glucose, Whole Blood 75 74 - 99 mg/dL LAB HEMATOLOGY METHOD 08/15/2024 5:14 AM EDT [facility] Ionized Calcium, Whole Blood 4.6 4.6 - 5.1 mg/dL LAB HEMATOLOGY METHOD 08/15/2024 5:14 AM EDT [facility] Lactate, Arterial, Whole Blood 0.7 0.5 - 1.6 mmol/L LAB HEMATOLOGY METHOD 08/15/2024 5:14 AM EDT [facility] Blood Arterial blood specimen / Unknown Arterial Puncture / Unknown 08/15/2024 5:01 AM EDT 08/15/2024 5:13 AM EDT us July Vargas MD LAB BLOOD ORDERABLES Final R esult Performing Organization Address City/[facility]/[place] [address] * (ABNORMAL) Prothrombin Time/INR (08/15/2024 4:52 AM EDT) Prothrombin Time 24.4(H) 12.0 - 14.3 sec 08/15/2024 5:08 AM EDT [facility] INR 2.2(H) 0.9 - 1.1 08/15/2024 5:08 AM EDT [facility] Blood Venous blood specimen / Unknown Venipuncture / Unknown 08/15/2024 4:52 AM EDT 08/15/2024 4:55 AM EDT Narrative [facility] - 08/15/2024 5:08 AM EDT OPTIMAL INR RANGES FOR PATIENT ON ORAL ANTICOAGULANT THERAPY Prevention of venous thromboembolism INR 2.0 to 3.0 In patients with heart disease: Atrial fibrillation INR 2.0 to 3.0 Valvular heart disease INR 2.0 to 3.0 Tissue heart valves INR 2.0 to 3.0 Mechanical prosthetic valves INR 2.5 to 3.5 Prevention of recurrent NM INR 2.5 to 3.5 us Kenneth James MD LAB BLOOD ORDERABLES Final Res ult Performing Organization Address City/[facility]/[place] [address] * Vitamin D 25 Hydroxy (08/15/2024 4:52 AM EDT) Vitamin D 25 Hydroxy 51.5 20.0 - 80.0 ng/mL 08/15/2024 6:37 AM EDT [facility] Blood Venous blood specimen / Unknown Venipuncture / Unknown 08/15/2024 4:52 AM EDT 08/15/2024 4:59 AM EDT Narrative [facility] - 08/15/2024 6:37 AM EDT Testing performed on Blank Sorter Packer, standardized against NIST SRM [id number]. When testing [...] ORDERABLES Final Re sult Performing Organization Address City/[facility]/ZIP Co de Phone Number [facility] [address] [place] [address] * (ABNORMAL) N-Terminal Probnp, Plasma (08/15/2024 4:52 AM EDT) N-Terminal, PROBNP, Plasma 6,053(H) 0 - 899 pg/mL 08/15/2024 5:32 AM EDT [facility] Blood Venous blood specimen / Unknown Venipuncture / Unknown 08/15/2024 4:52 AM EDT 08/15/2024 4:59 AM EDT Arben Ibarra MD LAB BLOOD ORDERABLES Final Re sult [facility] [address] [place] [address] * Phosphorus (08/15/2024 4:52 AM EDT) Phosphorus, Plasma 3.2 2.5 - 4.5 mg/dL 08/15/2024 5:32 AM EDT [facility] Blood Venous blood specimen / Unknown Venipuncture / Unknown 08/15/2024 4:52 AM EDT 08/15/2024 4:59 AM EDT Arben Ibarra MD LAB BLOOD ORDERABLES Final Re sult Performing Organization Address [facility]/ZIP Co de Phone Number [facility] [address] [place] [address] * Magnesium (08/15/2024 4:52 AM EDT) Magnesium, Plasma 1.9 1.9 - 2.4 mg/dL 08/15/2024 5:32 AM EDT [facility] Blood Venous blood specimen / Unknown Venipuncture / Unknown 08/15/2024 4:52 AM EDT 08/15/2024 4:59 AM EDT Arben Ibarar MD LAB BLOOD ORDERABLES Final Re sult Performing Organization Address City/[facility]/ZIP Co de Phone Number [facility] [address] [place] [address] * (ABNORMAL) Basic metabolic panel (08/15/2024 4:52 AM EDT) Glucose, Plasma 75 74 - 99 mg/dL 08/15/2024 5:32 AM EDT [facility] BUN, Plasma 19 8 - 23 mg/dL 08/15/2024 5:32 AM EDT [facility] Creatinine, Plasma 0.96 0.60 - 1.10 mg/dL 08/15/2024 5:32 AM EDT [facility] BUN/Creatinine Ratio 20 08/15/2024 5:32 AM EDT [facility] Sodium, Plasma 136 136 - 145 mmol/L 08/15/2024 5:32 AM EDT [facility] Potassium, Plasma 3.1(L) 3.6 - 4.9 mmol/L 08/15/2024 5:32 AM EDT [facility] Chloride, Plasma 94(L) 97 - 107 mmol/L 08/15/2024 5:32 AM EDT [facility] CO2, Plasma 30(H) 22 - 29 mmol/L 08/15/2024 5:32 AM EDT [facility] Anion Gap 12 6 - 16 mmol/L 08/15/2024 5:32 AM EDT [facility] Total Calcium, Plasma 9.3 8.9 - 10.2 mg/dL 08/15/2024 5:32 AM EDT [facility] eGFRcr 62.6 mL/min/1.7 3m*2 08/15/2024 5:32 AM EDT [facility] Comment:Reported eGFRcr in m L/min/1.73m2 is based the CKD-EPI 2020 equation that does not use a race coefficient. Blood Venous blood specimen / Unknown Venipuncture / Unknown 08/15/2024 4:52 AM EDT 08/15/2024 4:59 AM EDT us Arben Ibarra MD LAB BLOOD ORDERABLES Final Re sult [facility] [address] [place] [address] * (ABNORMAL) CBC W/O Differential (08/15/2024 4:52 AM EDT) WBC Count 6.49 3.70 - 10.30 10*3/uL LAB HEMATOLOGY METHOD 08/15/2024 4:57 AM EDT [facility] RBC Count 3.39(L) 3.90 - 5.20 10*6/uL LAB HEMATOLOGY METHOD 08/15/2024 4:57 AM EDT [facility] HGB 10.2(L) 11.2 - 15.7 g/dL LAB HEMATOLOGY METHOD 08/15/2024 4:57 AM EDT [facility] HCT 31.2(L) 34.0 - 45.0 % LAB HEMATOLOGY METHOD 08/15/2024 4:57 AM EDT [facility] Platelet Count 419(H) 155 - 369 10*3/uL LAB HEMATOLOGY METHOD 08/15/2024 4:57 AM EDT [facility] MCV 92 79 - 98 fL LAB HEMATOLOGY METHOD 08/15/2024 4:57 AM EDT [facility] MCH 30.1 26.0 - 32.0 pg LAB HEMATOLOGY METHOD 08/15/2024 4:57 AM EDT [facility] MCHC 32.7 30.7 - 35.5 g/dL LAB HEMATOLOGY METHOD 08/15/2024 4:57 AM EDT [facility] RDW 14.3 11.5 - 14.5 % LAB HEMATOLOGY METHOD 08/15/2024 4:57 AM EDT [facility] MPV 9.1 8.8 - 12.5 fL LAB HEMATOLOGY METHOD 08/15/2024 4:57 AM EDT [facility] nRBC 0.0 <=0.0 per 100 WBCs LAB HEMATOLOGY METHOD 08/15/2024 4:57 AM EDT [facility] Blood Venous blood specimen / Unknown Venipuncture / Unknown 08/15/2024 4:52 AM EDT 08/15/2024 4:55 AM EDT Arben Ibarra MD LAB BLOOD ORDERABLES Final Re sult [facility] [address] [place] [address] * (ABNORMAL) POCT glucose meter (08/14/2024 8:54 PM EDT) POCT Glucose 206(H) 74 - 99 mg/dL 08/14/2024 8:56 PM EDT [facility] Comment:Accuracy of a [...] Comment 08/14/2024 8:56 PM EDT [facility] Card Tape Converter Operator ID Manuel Tabares 08/14/2024 8:56 PM EDT [facility] Device ID [id number] 08/14/2024 8:56 PM EDT [facility] Specimen Type POC Capillary 08/14/2024 8:56 PM EDT [facility] Blood Capillary blood specimen / Unknown 08/14/2024 8:54 PM EDT 08/14/2024 8:56 PM EDT Arben Ibarra MD LAB POINT OF CARE TE ST DOCKED DEVICE UNSOLICITED RESULTS Final Result Performing Organization Address City/[facility] Co de Phone Number [facility] [address] [place] [address] * (ABNORMAL) POCT glucose meter (08/14/2024 6:43 PM EDT) POCT Glucose 218(H) 74 - 99 mg/dL 08/14/2024 6:45 PM EDT [facility] Comment:Accuracy of a [...] for testing. Comment 08/14/2024 6:45 PM EDT [facility] Card Tape Converter Operator ID Renee Barrett [id number] 6:45 PM EDT HEALTH[facility]ARE LAB Device ID [id number] 08/14/2024 6:45 PM EDT [facility] Specimen Type POC Capillary 08/14/2024 6:45 PM EDT [facility] Blood Capillary blood specimen / Unknown 08/14/2024 6:43 PM EDT 08/14/2024 6:45 PM EDT Arben Ibarra MD LAB POINT OF CARE TE ST DOCKED DEVICE UNSOLICITED RESULTS Final Result Performing Organization Address City/[facility]/ZIP Co de Phone Number [facility]ARE [facility] [address] [place] [address] * (ABNORMAL) Protime-INR (08/14/2024 6:08 PM EDT) Prothrombin Time 27.3(H) 12.0 - 14.3 sec 08/14/2024 6:24 PM EDT [facility] INR 2.6(H) 0.9 - 1.1 08/14/2024 6:24 PM EDT [facility] Blood Venous blood specimen / Unknown Venipuncture / Unknown 08/14/2024 6:08 PM EDT 08/14/2024 6:10 PM EDT Narrative [facility] - 08/14/2024 6:24 PM EDT OPTIMAL INR RANGES FOR PATIENT ON ORAL ANTICOAGULANT THERAPY Prevention of venous thromboembolism INR 2.0 to 3.0 In patients with heart disease: Atrial fibrillation INR 2.0 to 3.0 Valvular heart disease INR 2.0 to 3.0 Tissue heart valves INR 2.0 to 3.0 Mechanical prosthetic valves INR 2.5 to 3.5 Prevention of recurrent NM INR 2.5 to 3.5 Arben Ibarra MD LAB BLOOD ORDERABLES Final Re sult Performing Organization Address [facility] Co de Phone Number [facility] [address] [place] [address] * (ABNORMAL) Hemoglobin A1c (08/14/2024 6:08 PM EDT) Hemoglobin A1c 7.9(H) <5.7 % 08/15/2024 11:41 AM EDT [facility] Blood Venous blood specimen / Unknown Venipuncture / Unknown 08/14/2024 6:08 PM EDT 08/14/2024 6:10 PM EDT Narrative [facility] - 08/15/2024 11:41 AM EDT HA1C Interpretive Data: Diagnosis of Diabetes: Diabetic > or = 6.5% Pre-diabetic 5.7 to 6.4% Non-diabetic < or = 5.6% Glycemic Targets for Type I and Type II Diabetics: Non- Adults <7.0% Adults <6.0% Children and Adolescents <7.5% Source: [place] [employer]. Standards of medical care in diabetes,2017. Diabetes Care.2017:40 (suppl 1):S1-S135. Arben Ibarra MD LAB BLOOD ORDERABLES Final Re sult Performing Organization Address [facility] Co de Phone Number [facility] [address] [place] [address] * XR Chest 1 View (08/14/2024 3:52 [...] with the final edited report. Drafted by Sahsa Cruz MD on 08/14/2024 3:55 PM Final [...] Paola Polanco MD on 08/14/2024 3:59 PM us Jackson Puente MD IMG XR PROCEDURES Final Result * (ABNORMAL) BNP (08/14/2024 2:55 PM EDT) Pathologist [facility] N-Terminal, PROBNP, Plasma 6,763(H) 0 - 899 pg/mL 08/14/2024 3:43 PM EDT [facility] Blood Venous blood specimen / Unknown Venipuncture / Unknown 08/14/2024 2:55 PM EDT 08/14/2024 2:58 PM EDT us Jackson Puente MD LAB BLOOD ORDERABLES Fi nal Result [facility] [address] [place] [address] * (ABNORMAL) CBC w/diff (08/14/2024 2:55 PM EDT) [facility] WBC Count 6.61 3.70 - 10.30 10*3/uL LAB HEMATOLOGY METHOD 08/14/2024 3:00 PM EDT [facility] RBC Count 3.43(L) 3.90 - 5.20 10*6/uL LAB HEMATOLOGY METHOD 08/14/2024 3:00 PM EDT [facility] HGB 10.2(L) 11.2 - 15.7 g/dL LAB HEMATOLOGY METHOD 08/14/2024 3:00 PM EDT [facility] HCT 31.8(L) 34.0 - 45.0 % LAB HEMATOLOGY METHOD 08/14/2024 3:00 PM EDT [facility] Platelet Count 380(H) 155 - 369 10*3/uL LAB HEMATOLOGY METHOD 08/14/2024 3:00 PM EDT [facility] MCV 93 79 - 98 fL LAB HEMATOLOGY METHOD 08/14/2024 3:00 PM EDT [facility] MCH 29.7 26.0 - 32.0 pg LAB HEMATOLOGY METHOD 08/14/2024 3:00 PM EDT [facility] MCHC 32.1 30.7 - 35.5 g/dL LAB HEMATOLOGY METHOD 08/14/2024 3:00 PM EDT [facility] RDW 14.2 11.5 - 14.5 % LAB HEMATOLOGY METHOD 08/14/2024 3:00 PM EDT [facility] MPV 9.2 8.8 - 12.5 fL LAB HEMATOLOGY METHOD 08/14/2024 3:00 PM EDT [facility] nRBC 0.0 <=0.0 per 100 WBCs LAB HEMATOLOGY METHOD 08/14/2024 3:00 PM EDT [facility] Differential Type Automated LAB HEMATOLOGY METHOD 08/14/2024 3:00 PM EDT [facility] Neutrophils % 76 % LAB HEMATOLOGY METHOD 08/14/2024 3:00 PM EDT [facility] Lymphocytes % 11 % LAB HEMATOLOGY METHOD 08/14/2024 3:00 PM EDT [facility] Monocytes % 10 % LAB HEMATOLOGY METHOD 08/14/2024 3:00 PM EDT [facility] Eosinophils % 1 % LAB HEMATOLOGY METHOD 08/14/2024 3:00 PM EDT [facility] Basophils % 1 % LAB HEMATOLOGY METHOD 08/14/2024 3:00 PM EDT [facility] Immature Granulocytes % 1 % LAB HEMATOLOGY METHOD 08/14/2024 3:00 PM EDT [facility] Neutrophils Absolute 5.05 1.60 - 6.10 10*3/uL LAB HEMATOLOGY METHOD 08/14/2024 3:00 PM EDT [facility] Lymphocytes Absolute 0.70(L) 1.20 - 3.90 10*3/uL LAB HEMATOLOGY METHOD 08/14/2024 3:00 PM EDT [facility] Monocytes Absolute 0.69 0.30 - 0.90 10*3/uL LAB HEMATOLOGY METHOD 08/14/2024 3:00 PM EDT [facility] Eosinophils Absolute 0.08 0.00 - 0.50 10*3/uL LAB HEMATOLOGY METHOD 08/14/2024 3:00 PM EDT [facility] Basophils Absolute 0.06 0.00 - 0.10 10*3/uL LAB HEMATOLOGY METHOD 08/14/2024 3:00 PM EDT [facility] Immature Granulocytes Absolute 0.03 0.00 - 0.06 10*3/uL LAB HEMATOLOGY METHOD 08/14/2024 3:00 PM EDT [facility] Blood Venous blood specimen / Unknown Venipuncture / Unknown 08/14/2024 2:55 PM EDT 08/14/2024 2:58 PM EDT Narrative [facility] - 08/14/2024 3:00 PM EDT Therapeutic decision making should be based on absolute values, rather than percentages. Jackson Puente MD LAB BLOOD ORDERABLES Fi nal Result Performing Organization Address City/[facility]/ZIP Co de Phone Number [facility] [address] [place] [address] * (ABNORMAL) Troponin now and 120 min (08/14/2024 2:55 PM EDT) Troponin T, High Sensitivity, 0 Hour 29(H) <14 ng/L 08/14/2024 3:43 PM EDT [facility] Blood Venous blood specimen / Unknown Venipuncture / Unknown 08/14/2024 2:55 PM EDT 08/14/2024 2:58 PM EDT Jackson Puente MD LAB BLOOD ORDERABLES Fi nal Result Performing Organization Address City/[facility] Co de Phone Number [facility] [address] [place] [address] * (ABNORMAL) Magnesium (08/14/2024 2:55 PM EDT) Magnesium, Plasma 1.6(L) 1.9 - 2.4 mg/dL 08/14/2024 3:43 PM EDT [facility] Blood Venous blood specimen / Unknown Venipuncture / Unknown 08/14/2024 2:55 PM EDT 08/14/2024 2:58 PM EDT Jackson Puente MD LAB BLOOD ORDERABLES Fi nal Result Performing Organization Address City/[facility]/ZIP Co de Phone Number [facility] [address] [place] [address] * (ABNORMAL) CMP (08/14/2024 2:55 PM EDT) Glucose, Plasma 282(H) 74 - 99 mg/dL 08/14/2024 3:43 PM EDT [facility] BUN, Plasma 19 8 - 23 mg/dL 08/14/2024 3:43 PM EDT [facility] Creatinine, Plasma 0.82 0.60 - 1.10 mg/dL 08/14/2024 3:43 PM EDT [facility] BUN/Creatinine Ratio 23 08/14/2024 3:43 PM EDT [facility] Sodium, Plasma 128(L) 136 - 145 mmol/L 08/14/2024 3:43 PM EDT [facility] Potassium, Plasma 3.6 3.6 - 4.9 mmol/L 08/14/2024 3:43 PM EDT [facility] Chloride, Plasma 90(L) 97 - 107 mmol/L 08/14/2024 3:43 PM EDT [facility] CO2, Plasma 25 22 - 29 mmol/L 08/14/2024 3:43 PM EDT [facility] Anion Gap 13 6 - 16 mmol/L 08/14/2024 3:43 PM EDT [facility] Total Calcium, Plasma 8.9 8.9 - 10.2 mg/dL 08/14/2024 3:43 PM EDT [facility] Total Protein 7.4 6.3 - 7.9 g/dL 08/14/2024 3:43 PM EDT [facility] Albumin, Plasma 3.6 3.5 - 5.2 g/dL 08/14/2024 3:43 PM EDT [facility] AST, Plasma 32 10 - 35 U/L 08/14/2024 3:43 PM EDT [facility] ALT, Plasma 20 10 - 35 U/L 08/14/2024 3:43 PM EDT [facility] Alkaline Phosphatase, Plasma 117 46 - 142 U/L 08/14/2024 3:43 PM EDT [facility] Total Bilirubin, Plasma 0.5 0.2 - 1.1 mg/dL 08/14/2024 3:43 PM EDT [facility] eGFRcr 75.6 mL/min/1.7 3m*2 08/14/2024 3:43 PM EDT [facility] Comment:Reported eGFRcr in m L/min/1.73m2 is based the CKD-EPI 2020 equation that does not use a race coefficient. Blood Venous blood specimen / Unknown Venipuncture / Unknown 08/14/2024 2:55 PM EDT 08/14/2024 2:58 PM EDT Jackson Puente MD LAB BLOOD ORDERABLES Fi nal Result Performing Organization Address [facility] Co de Phone Number [facility] [address] [place] [address] * EKG now - STAT (adult) (08/14/2024 2:31 PM EDT) EKG DIAGNOSIS CLASS Abnormal MUSE ECG Ventricular Rate 60 BPM MUSE ECG Atrial Rate 28 BPM MUSE ECG QRSD Interval 192 ms MUSE ECG QT Interval 554 ms MUSE ECG QTC Interval 554 ms MUSE ECG P [place] 48 degrees MUSE ECG R [place] -66 degrees MUSE ECG T Wave [place] 114 degrees MUSE ECG Diagnosis Ventricular-pa amber rhythm MUSE ECG Diagnosis Abnormal ECG MUSE ECG Diagnosis MUSE ECG Diagnosis Compared to last ECG MUSE ECG Diagnosis No significant change was found MUSE ECG Diagnosis Confirmed by Cristian Irwin ([id number]) on 08/15/2024 10:41:50 AM MUSE ECG 08/14/2024 2:31 PM EDT 08/15/2024 10:41 AM EDT Jackson Puente MD ECG ORDERABLES Final R esult Performing Organization Address City/[facility] Co de Phone Number MUSE ECG documented [...] congestive heart failure, unspecified heart failure type ([facility]) Pleural effusion Unspecified pleural effusion documented in this encounter Admitting Diagnoses Diagnosis Acute on chronic hypoxic respiratory failure Acute on chronic congestive heart failure ([facility]) documented in this encounter Administered Medications Inactive [...] on Fri08/14/24 at 1730, Until Discontinued, Routine Given 08/24/2024 [...] daily (0900 & 1500), First dose on Fri08/19/24 at 1500, Until Discontinued, Routine Given 08/19/2024 [...] Nightly, First dose (after last modification) on Lurdes 08/19/24 at 2100, Until Discontinued, Routine Given 08/19/2024 [...] daily, First dose (after last modification) on 08/23/24 at 2100, Until Discontinued, Routine Given 08/24/2024 [...] 6 Units, Subcutaneous, Once, 1 dose, On Tu08/17/24 at 1345, Routine Given 08/17/2024 1:22 PM EDT 6 Units Left Lower Abdomen Insulin Lispro (Admelog, HumaLOG) 100 UNIT/ML injection 6 Units 6 Units, Subcutaneous, Once, 1 dose, On Lurdes 08/19/24 at 0015, Routine Given 08/18/2024 11:39 PM EDT 6 Units Left Upper Arm (Back) ipratropium-albuterol (Duo-Neb) 0.5-2.5 mg/3 mL nebulizer solution 3 mL 3 mL, Nebulization, Every 6 hours PRN, Starting on [place] 08/15/24 at 0421, Until Fri08/24/24 at 1720, Routine, wheezing Given 08/15/2024 4:35 AM EDT 3 mL lactated Ringer's bolus 500 mL 500 mL, Intravenous, Once, 1 dose, On [facility] 08/21/24 at 0730, Administer over 2 Hours, Routine New Bag 08/21/2024 9:14 AM EDT 500 mL 250 mL/hr latanoprost (Xalatan) 0.005 % ophthalmic solution 1 drop 1 drop, Both Eyes, Nightly, First dose on [facility] 08/14/24 at 2100, Until Discontinued, Routine Given 08/23/2024 8:14 PM EDT 1 drop Given 08/22/2024 9:24 PM EDT 1 drop Given 08/21/2024 9:06 PM EDT 1 drop levothyroxine (Synthroid, Levoxyl) tablet 125 mcg 125 mcg, Oral, Every morning, First dose on [place] 08/15/24 at 0600, Until Discontinued, Routine Given [...] 20 mL, Infiltration, Once, 1 dose, On [facility] 08/19/24 at 0900, Routine Given 08/19/2024 11:27 AM EDT 20 mL LORazepam (Ativan) injection 0.26 mg 0.26 mg (rounded from 0.25 mg), Intravenous, Once, 1 dose, On [facility] 08/19/24 at 1200, STAT Given 08/19/2024 11:21 AM EDT 0.26 mg magic mouthwash BLM (FIRST-Mouthwash) suspension 15 mL 15 mL, Swish & Spit, 4 times daily before meals and nightly, First dose on [facility] 08/16/24 at 1700, Until Discontinued, Routine Given 08/24/2024 1:00 PM EDT 15 mL Given 08/24/2024 8:11 AM EDT 15 mL Given 08/23/2024 8:10 PM EDT 15 mL magnesium oxide (Mag-Ox) tablet 400 mg 400 mg, Oral, Once, 1 dose, On [facility] 08/19/24 at 0830, Routine Given 08/19/2024 8:39 AM [...] Oral, Every 6 hours PRN, Starting on Fri08/19/24 at 1107, Until Fri08/24/24 at 1720, Routine, [...] 4 g, Intrapleural, Once, 1 dose, On Lurdes 08/19/24 at 0900, Routine Given 08/19/2024 11:27 AM EDT 4 g Tiotropium [place] Monohydrate (Spiriva Respimat) 2.5 MCG/ACT inhaler 2 puff 2 puff, Inhalation, Daily, First dose on 08/16/24 at 1600, Until Discontinued Given 08/23/2024 9:10 [...] Le RN) 2013 (Given - Provider: Jennifer Carroll, EVITA) cetirizine (ZyrTEC) tablet 10 mg 10 mg, Oral, Nightly, First dose on Fri08/14/24 at 2100, Until Discontinued, Routine 2117 (Given - Provider: Puja Le, EVITA) 2007 (Given - Provider: Jennifer Carroll, EVITA) DULoxetine (Cymbalta) DR capsule 80 mg 80 mg, Oral, Every morning, First dose on Fri08/15/24 at 0600, Until Discontinued, Routine 09 (Given - Provider: Kosta Dugan RN - Comment: given with morning meds) 0623 (Given - Provider: Puja Le RN) 0523 (Given - Provider: Jennifer Carroll RN) enoxaparin (Lovenox) syringe 40 mg 40 mg, Subcutaneous, Daily, First dose (after last modification) on Fri08/20/24 at 0900, Until Discontinued, Routine 0930 (Not Given - Provider: Kosta Dugan RN - Reason: Patient/family refused) 0850 (Given - Provider: Marilee Fabian RN) 0811 (Given - Provider: Kosta Dugan RN) ezetimibe (Zetia) tablet 10 mg 10 mg, Oral, Nightly, First dose on Fri08/16/24 at 2100, Until Discontinued, Routine 2116 (Given - Provider: Puja Le, EVITA) 2009 (Given - Provider: Jennifer Carroll RN) [...] Discontinued, Routine 0930 (Given - Provider: Kosta Dguan RN)2116 (Given - Provider: Puja Le, EVITA) 0851 (Given - Provider: Marilee Fabian, EVITA)2007 (Given - Provider: Jennifer Carroll RN) 0811 [...] Until Discontinued, Routine 0928 (Given - Provider: oKsta Dugan RN)2118 (Given - Provider: Puja Le RN) 0853 (Given - Provider: Marilee Fabian RN) [...] Kosta Dugan RN)1633 (Not Given - Provider: oKsta Dugan RN - Reason: Order parameters not [...] on 08/14/24 at 2100, Until Discontinued, Routine 032 (Not Given - Provider: Mary Hopper RN - Reason: Order parameters not met)2321 (Not Given - Provider: Puja Le RN - Reason: Patient/family refused - Comment: secure message Dr. Eduardo Hoang informing of refusal. Pt educated) 0318 (Given - Provider: Puja Le, EVITA)2100 (Canceled Entry - Provider: Jennifer Carroll RN [...] Kosta Dugan RN)1302 (Given - Provider: Kosta Dugan, EVITA) latanoprost (Xalatan) 0.005 % ophthalmic solution 1 [...] Hopper RN) 0623 (Given - Provider: Puja Le, EVITA) 0523 (Given - Provider: Jennifer Carroll, EVITA) magic mouthwash BLM (FIRST-Mouthwash) suspension 15 mL 15 mL, Swish & Spit, 4 times daily before meals and nightly, First dose on 08/16/24 at 1700, Until Discontinued, Routine 0930 (Given - Provider: Kosta Dugan RN)1135 (Given - Provider: Kosta Dugan, EVITA)1742 (Given - Provider: Kosta Dugan RN)2123 (Given - Provider: Puja Le, EVITA) 0854 (Given - Provider: Marilee aFbian RN)1232 (Given - Provider: Marilee Fabian RN)1649 (Given - Provider: Marilee Fabian RN)2009 (Given - Provider: Jennifer Carroll, RN) 0811 (Given - Provider: Kosta Dugan [...] stated she doesnt take them in the morning.)213 (Given - Provider: Puja Le RN) 0910 [...] 0811 (Given - Provider: Kosta Dugan RN) ondansetron ODT (Zofran-ODT) disintegrating tablet 4 mg (COMPLETED)(Linked Group 2) 4 mg, Oral, Once, 1 dose, On Fri08/22/24 at 1130, Routine 1135 (Given - Provider: Kosta Dugan RN) sodium chloride 0.9 % flush 10 mL(Linked Group 3) 10 mL, Intravenous, Every 12 hours, First dose on Fri08/14/24 at 1715, Until Discontinued, Routine 0930 (Given - Provider: Kosta Dugan RN)2125 (Given - Provider: Puja Le RN) 0854 (Given - Provider: Marilee Fabian RN)2008 (Given - Provider: Jennifer Carroll RN) 0811 (Given - Provider: Kosta Dugan, EVITA) spironolactone (Aldactone) tablet 12.5 mg 12.5 mg, Oral, Daily, First dose on Fri08/24/24 at 1345, Until Discontinued, Routine 1434 (Not Given - Provider: Kosta Dugan RN - Reason: Patient/family refused) Tiotropium [place] Monohydrate (Spiriva Respimat) 2.5 MCG/ACT inhaler 2 puff(Linked Group 1) 2 puff, Inhalation, Daily, First dose on Fri08/16/24 at 1600, Until Discontinued 0929 (Not Given - Provider: Kosta Dugan RN - Reason: Patient/family refused - Comment: Pt. stated she doesnt take them in the morning.) 0910 (Given - Provider: Marilee Fabian RN) 0815 [...] Routine 1742 (Given - Provider: Kosta Dugan, RN) 1648 (Given - Provider: Marilee Fabian, EVITA) PRN Medication Order 08/22/2024 08/23/2024 08/24/2024 acetaminophen [...] sleep 2117 (Given - Provider: Puja Le, RN) 2007 (Given - Provider: Jennifer Carroll [...] care Linked Groups Order Group 1: Tiotropium [place] Monohydrate (Spiriva Respimat) 2.5 MCG/ACT inhaler 2 [...] 3: Insert peripheral IV (COMPLETED) Once, On 08/14/24 at 1711, For 1 occurrence And Saline lock IV (COMPLETED) Once, On 08/14/24 at 1711, For 1 occurrence And sodium chloride 0.9 % flush 10 mLJump to med 10 mL, Intravenous, Every 12 hours, First dose on 08/14/24 at 1715, Until Discontinued, Routine And sodium [...] documented as of this encounter Care Teams Sql Programmer Analyst Relationship Specialty Start Date End Date Alisa Kunz DO [address] [place] [address] PCP - General Internal Medicine 03/13/21 Kodi Bustos DO [address] [address] Surgeon Cardiothoracic Surgery 11/06/22 Sujit Arriola MD [address] [place] [address] Consulting Physician Pulmonary Disease 11/06/22 Sujit Reyes MD [address] [place] [address] Referring Physician 12/04/22 Zully Caldwell LPN VALUE-BASED [place] [address] [facility] Nurse 07/16/24 08/15/24 Ekaterina Gómez Cutter Wet Machine Physical Therapist Center Manager 08/16/24 08/16/24 documented as of this encounter
--- OUTSIDE RECORDS SUMMARY | 2024-08-18 12:57 | XMS_ITS | Encounter Summary ---
Author Organization [facility] Address [address] [place] [address] Care Team Providers Care Data Warehouse Developer Name Role Phone Alisa Kunz Torri SOLIS Primary Care Provider [phone] Kodi Bustos DO Unavailable [phone] Sujit Arriola MD Unavailable [phone] Sujit Reyes MD Unavailable [phone] Reason for Visit * Reason Comments Shortness of Breath * Auth/Cert (Routine) Specialty Diagnoses / Procedures Referred By Contac t Referred To Contact Diagnoses Shortness of breath Pleural effusion Acute on chronic congestive heart failure, unspecified heart failure type (CMS/HCC) Acute on chronic hypoxic respiratory failure Arben Ibarra MD [address] [place] [address] Phone: tel: fax: [facility] H Inpatient [address] [place] [address] Phone: tel: Referral ID Status Reason Start Date Expiration Date Visits Re quested Visits Authorized [id number] 1 1 Encounter Details Date Type Department Care Team (Late st Contact Info) Description 08/18/2024 12:57 PM EDT - 08/18/2024 1:42 PM EDT Surgery Cardiac Plant Pathology Teacher [address] [place] [address] Brenden Zamora MD [address] [place] [address] Right heart catheterization Surgery Details Date/Time Status Location OR Service Patient Class Case Class Case Type Trauma Case? 08/18/2024 12:57 PM Posted [place] SUBSTATION INSPECTOR SUBSTATION INSPECTOR 04 Cardiovascular Inpatient E-Elect steven Panel 1 [...] week 08/30/2022 How often do you attend [facility] or [facility] services? 1 to 4 times per year 08/30/2022 Do you belong to any clubs o r organizations such as catholic groups, unions, fraternal or athletic groups, or [...] Recorded Patient Health Questionnaire-2 Score 0 08/04/2024 [facility] of Occupat [facility] - Occupational Stress Questionnaire Answer Date [...] place to sleep or slept in a fdc (including now)? No 12/30/2023 PHQ-9 Answer Date [...] any time in the past 12 m [facility], were you homeless or living in a fdc (including now)? No 05/27/2024 Humiliation, Afraid, Rape, [...] any time in the past 12 m [facility], were you homeless or living in a fdc (including now)? No 08/15/2024 CAGE ASSESSMENT Answer [...] drink first t anselmo in the morning (EYE-FISHING TACKLE REPAIRER) to steady your nerves or to get [...] tabletIndications: Systemic lupus erythematosus (SLE) in adult ([facility]) Take 1 tablet by mouth daily. 90 tablet 1 07/21/2024 5 insulin glargine (Toujeo SoloStar) 300 UNIT/ML [...] lupus erythematosus (SLE) in adult (CMS/[facility]) Take 2 tablets by mouth 2 [...] Thayer MD PCP name and Address: Alisa Kunz, DO [address] [address] Referring provider name and address: No referring provider defined for this encounter. Chief Concern, Brief History of Present Illness, and Hospital Course Doron Felipe is a 74-year-old woman with a PMH significant for SLE on Plaquenil followed by [facility], chronic bl pleural effusions, chronic hypoxic respiratory [...] this encounter Procedures Cardiac catheterization Case Request Plant Pathology Teacher: Right heart catheterization Right heart catheterization (N/A) [...] Ellipta 200-62.5-25 MCG/ACT aerosol powder Generic drug: Dxjaownqdwm-Nijakupuz-Rnbjea Inhale 1 puff 1 (one) time each [...] Your Medications These medications were sent to [facility] - ODALYS Jones [address] [facility] [address] [address] [place] [phone] gabapentin 300 MG capsule These medications were sent to [facility] - [place], [place] - [address] [facility] [id number] mycophenolate 500 MG tablet Discharge Diagnosis Medical Problems Active and Resolved Hospital Problems Hospital Type 1 diabetes mellitus with other specified complication (CMS/HCC) Overview Addendum 01/05/2024 2:49 PM by Alisa [...] Center 09/08/2024 11:20 AM Alisa Kunz DO [facility] 10/07/2024 4:00 PM [facility] ECHO 1 ECHOCHG [facility] 10/14/2024 4:00 PM Lavern Shoemaker MD [facility] 10/27/2024 1:40 PM Anne-Marie Kolb APRN ENDOTFBNBR [place] 11/29/2024 10:20 AM Alisa Kunz, [facility] 02/02/2025 10:30 AM Sadiq Osborne MBBS [facility] Test Results Pending At Discharge Pending Labs [...] Note Doron Felipe 74 y.o. female CSN: [id number] Admission: 08/14/2024 3:16 PM Primary Problem: Acute on chronic hypoxic respiratory failure Primary Seed Mill Superintendent: Primary Caregiver: Family Assistance Available at Discharge: Current Outpatient/Agency/Support Group: clinic(s), DME Availability of Care Givers (#Hours): 24 hours Family/Seed Mill Superintendent(s) Willingness Assessed to care for patient at home: Yes Family/Seed Mill Superintendent(s) Readiness Assessed to care for patient at [...] By: patient Follow-up: Debbie Parnell ([employer] [facility]) [phone] Follow up Provider for [facility] Discharge Transportation: Transportation Anticipated: family or friend [...] spouse will assist with transportation on discharge. attempted to arranged Home Health for PT/OT after hospitalization, due to patient insurance HomeHealth agency is unable to accept or at capacity with patient insurance. Pt will be provided a Outpatient PT/OT script upon discharge. Pt was provided a number for Debbie Parnell ( [facility] [employer] [facility]) due to the concern that her family is unable to assist at times with transportation. Pt reported that she was comfortable with returning home, Pt reported knowing how to utilize [employer] Medicare transportation if needed and reported that her insurance provides certain amount transportation within a couple days after discharging from the hospital. No further services planned. Nathan Lima MSW, FIXED INCOME TRADING VICE PRESIDENT * Tk Alexander - 08/24/2024 12:37 PM EDT Images from the original note were not included. [id number] Pleural Effusion The pleura is a smooth [...] fainting Last Reviewed Date: 2023 00:00:00 ?? [id number] The [employer]. All rights reserved. This information is not intended as a substitute for professional medical care. Always follow your healthcare professional's instructions. * Delilah Ni - Tk Hale - 08/24/2024 12:36 PM EDT Images from the original note were not included. [id number] Heart Failure What is heart failure? The [...] money problems,housing, access to food, and child and family therapist. If you can?t get to medical appointments, [...] weekends. Last Reviewed Date: 2022 00:00:00 ?? [id number] The [employer]. All rights reserved. This information is not [...] therapy. Participants in Care Family/Caregiver Present: No Bowling Alley Mechanic: No Presentation Oxygen Oxygen Therapy: Supplemental oxygen [...] safety, along with improving upright activity tolerance. HIGHWAY MAINTENANCE CREW WORKER provided cues to promote maximal independence and safety. Refer to sections below for further details. Bed Mobility Bed Mobility Interventions: Cues to initiate task. Bed Mobility Exam: Scooting/Bridging Level of [place]: Modified independence Physical/Nonphysical Assist: Supervision Assistive Device: Bed rails Bed Mobility Exam: Supine to Sit Level of [place]: Modified [place] Physical/Nonphysical Assist: HOB elevated, Set-up required Assistive Device: Bed rails Transfers Transfer Interventions: Provided cues for proper hand placement, BLE set-up, forward trunk leans toinitiate coming to stand, and safe descent to sit. Transfer Exam: Sit to stand Level of [place]: Stand-by assist Physical/Nonphysical Assist: Set-up required, Verbal Cues, Nonverbal cues (demo/gestures) Assistive Device: Walker, rolling Transfer Exam: Stand to Sit Level of [place]: Stand-by assist Physical/Nonphysical Assist: Set-up required, Verbal Cues, Nonverbal cues (demo/gestures) Assistive Device: Walker, rolling Transfer Exam: Bed to Chair/Chair to Bed Level of [place]: (deferred and wanted to sit EOB instead) [...] for proper return of demonstration of exercises. HIGHWAY MAINTENANCE CREW WORKER educated patient on HEP and encouraged her to perform 2-3 times daily. Access Code: [email or web address] URL: [email or web address] Date: 08/24/2024 Prepared by: Hugh Exercises - [...] agree with this document written by the home care physical therapist for this patient on this date/time. * Consults - Snady Figueroa, DEREK - 08/24/2024 9:39 AM EDT Adult Nutrition Evaluation Note Doron Felipe 74 y.o. female CSN: [id number] Room/Bed 208/208C Nutrition evaluation type: follow-up Reason [...] (131 lb 9.8 oz) BMI (Calculated): 22.58 [place] Body Weight (kg): 54.5 Percent [place] Body Weight: 112 Wt Readings from Last [...] Regular Adult Carbohydrate Restriction: Consistent CHO 2 (9940-8096 Damon, 80 g/meal) Adult Sodium Restriction: 2,000 mg Na Percent Meals Eaten (%): avg 81% (08/15-08/19) Diet Experience and Nutrition History: Diet Education Provided: Will monitor Pertinent home medications: Reviewed. Christian needs: Nutrition Focused Physical Exam: Unable to [...] right leg 02/12/2024 CHF (congestive heart failure) ([facility]/HCC) Chronic respiratory failure 2019 Clotting disorder (CMS/HCC) Congenital malformation COPD (chronic obstructive pulmonary disease) (CMS/HCC) 2018 Coronary artery disease CTS (carpal tunnel [...] or viral conjunctivitis vs. Scleritis. - Needs [facility] eye exam. - Was ableto get patient in with [facility] ophthalmology right after our clinic [...] CARDIAC PACEMAKER PLACEMENT N/A Pacemaker Placement from [facility] CARPAL TUNNEL RELEASE N/A Neuroplasty Decompression Median Nerve At Carpal Tunnel from [facility] CERVICAL BIOPSY W/ LOOP ELECTRODE EXCISION 2010 SECTION, CLASSIC 1976, 1979 SECTION, LOW TRANSVERSE N/A Section from [facility] COLONOSCOPY N/A Complete Colonoscopy from [facility] CORONARY ARTERY BYPASS GRAFT N/A CABG from [facility] EYE SURGERY N/A Eye Surgery from [facility] FRACTURE SURGERY SPINE SURGERY THORACENTESIS TOE SURGERY Left 02/07/2024 hematoma removal of upper skin on L big toe TONSILLECTOMY N/A Tonsillectomy from [facility] [3] Social History Tobacco Use Smoking status: [...] 125 mcg, Oral, q AM magic mouthwash diphen/lido/dwdo-cpk-mijeow, 15 mL, Swish & Spit, Before meals & nightly metoprolol succinate XL, 25 mg, Oral, Daily Tiotropium Norton Monohydrate, 2 puff, Inhalation, Daily AND mometasone- [...] only (use of w/c in community) Mobility [place] Independent gait with device History of Falls [...] shoulders and head. BED MOBILITY Level of [place] Rolling/Turning Modified independence Scooting/Bridging Modified independence Supine to Sit Modified [place] Sit to Supine Modified independence TRANSFERS Level of [place] Physical/Non-physical Assist AE Sit to Stand Stand-by [...] Weight shift posterior to midline Level of [place] Balance Support Interventions Static Sit Standby assist [...] to ADLindependence. Pt verbalized understanding. Level of [place] Interventions Feeding Independent, Setup Edge of bed [...] 08/16/24 2 weeks Post treatment OT educated operations staff specialist security on patient ADL assist requirements, physical assist [...] on INR anticipated in 2-4 days Yvonne Carballo, PharmD, [facility] Internal Medicine Clinical Pharmacist * Care [...] Progressing * Progress Notes - Boby Rouse, ROENTGENOLOGY TEACHER - 08/23/2024 1:48 PM EDT Subjective No [...] again as needed. Boby Rouse APRN Pager: [phone] * Progress Notes - Tk Hale - [...] Center 09/08/2024 11:20 AM Alisa Kunz DO [facility] 10/07/2024 4:00 PM [facility] ECHO 1 E[facility]CHG [facility] 10/14/2024 4:00 PM Lavenr Shoemaker MD [facility] 10/27/2024 1:40 PM Anne-Marie Kolb APRN ENDOALEJANDRA [facility] 11/29/2024 10:20 AM Alisa Kunz DO [facility] 02/02/2025 10:30 AM Sadiq Osborne [facility] Tk Hale MS4 Cosigned by Kenneth James MD at 08/23/2024 5:58 PM EDT Associated attestation - Kenneth James MD - 08/23/2024 5:58 PM EDT I saw and evaluated the patient with the medical/ACETYLENE TORCH SOLDERER/PA student. I discussed the case with the medical/ACETYLENE TORCH SOLDERER/PA student and agree with the findings and [...] EDT Case Management Adult Progress Note Doron Feilpe 74 y.o. female CSN: [id number] Admission: 08/14/2024 3:16 PM Primary Problem: Acute [...] recommending HH PT/OT, SW sent referrals via [facility] on 08/23/2024. SW will continue to follow-up with pt's MD and care team on their progress and discharge plan. Nathan Lima TEST ENG, FIXED INCOME TRADING VICE PRESIDENT * Progress Notes - Yvonne Carballo, PharmD [...] on INR in 3-5 days Iraj FreemanD, [facility] Internal Medicine Clinical Pharmacist * Care [...] discharge needs: None Family Contact: Ruthie JamilDoron Madyson Hernandes Follow-up: PCP Cardiology Pulmonology Rheumatology Endocrinology Future Appointments Date Time Provider Department Center 09/08/2024 11:20 AM Alisa Kunz DO [facility] 10/07/2024 4:00 PM [facility] ECHO 1 E[facility]CHG [facility] 10/14/2024 4:00 PM La[facility] Sho[facility] 10/27/2024 1:40 PM Anne-Marie Kolb APRN ENDOT[facility] 11/29/2024 10:20 AM Alisa Kunz DO [facility] 02/02/2025 10:30 AM Sadiq Osborne [facility] Tk Alrefai, MS4 Cosigned by Kenneth James MD at 08/22/2024 3:48 PM EDT Associated attestation - Kenneth James MD - 08/22/2024 3:48 PM EDT I saw and evaluated the patient with the medical/ACETYLENE TORCH SOLDERER/PA student. I discussed the case with the medical/ACETYLENE TORCH SOLDERER/PA student and agree with the findings and plan as documented. I personally performed the Examand Medical Decision Making. * Progress Notes - Yvonne Carballo PharmD - 08/22/2024 7:39 AM EDT Antithrombosis [...] INR in 3-5 days Yvonne Carballo PharmD, [facility] Internal Medicine Clinical Pharmacist * Care [...] INR in 3-5 days Yvonne Carballo, PharmD, [facility] Internal Medicine Clinical Pharmacist * Care [...] Anticipated discharge needs: None Family Contact: Ruthie Jaiml John Follow-up: PCP Cardiology Pulmonology Rheumatology Endocrinology Future Appointments Date Time Provider Department Center 09/08/2024 11:20 AM Alisa Kunz DO [facility] 10/07/2024 4:00 PM [facility] ECHO 1 E[facility]CHG [facility] 10/14/2024 4:00 PM Lavern Shoemaker MD [facility] 10/27/2024 1:40 PM Anne-Marie Kolb, ROENTGENOLOGY TEACHER [facility] 11/29/2024 10:20 AM Alisa Kunz DO [facility] 02/02/2025 10:30 AM Sadiq Osborne [facility] Tk Hale, MS4 Cosigned by Kenneth James MD at 08/20/2024 5:23 PM EDT Associated attestation - Kenneth James MD - 08/20/2024 5:23 PM EDT I saw and evaluated the patient with the medical/ACETYLENE TORCH SOLDERER/PA student. I discussed the case with the medical/ACETYLENE TORCH SOLDERER/PA student and agree with the findings and plan as documented. I personally performed the Examand Medical Decision Making. Severe exacerbation, progression, or side effect of treatment: Acute hyponatremia High risk: Drug therapy requiring intensive monitoring for toxicity: Warfarin - INR * Progress Notes - IshmaelKeo agrawalhanna Wei - 08/20/2024 1:41 PM EDT PHYSICAL THERAPY [...] only (use of w/c in community) Mobility [place] Independent gait with device History of Falls [...] to Physical Therapy treatment session. Visitors Present Bowling Alley Mechanic (if applicable) OBJECTIVE PAIN No complaints of [...] level of function. BED MOBILITY Level of [place] Physical/Non- physical Assist Adaptive Equipment Utilized Rolling/ Turning Modified independence Bed rails Scooting/ Bridging Modified independence Bed rails Supine to Sit Modified [place] HOB elevated, Set-up required Bed rails Sit to Supine Modified independence Set-up required, HOB elevated Bed rails Interventions TRANSFERS Level of [place] Physical/Non- physical Assist Adaptive Equipment Utilized Sit to Stand Contact guard Set-up required, Verbal Cues, Nonverbal cues (demo/gestures) Walker, rolling Stand to sit Contact guard Set-up required, Verbal Cues, Nonverbal cues (demo/gestures) Walker, rolling Bed to Chair Toilet Transfer Shower Transfer Interventions AMBULATION Level of [place] Distance Adaptive Equipment Utilized Ambulation Contact guard [...] Weight shift posterior to midline Level of [place] Balance Support Interventions Static Sit Standby assist Feet supported, Right upper extremity support, Left upper extremity support Dynamic Sit Standby assisst Feet supported Static Stand Contact guard Right upper extremity support, Left upper extremity support (rolling walker) Dynamic Stand Contact guard Right upper extremity support, Left upper extremity support (rolling walker) Lateral weight shifts, Anterior/Posterior weight shifts, Reaching for objects STANDARDIZED ASSESSMENTS [facility] 6-Clicks Mobility Assessment Difficulty patient has turning [...] 3-5 steps with a railing?: A lot [facility] 6-Clicks Mobility Assessment Total : 19 ASSESSMENT [...] only (use of w/c in community) Mobility [place] Independent gait with device History of Falls [...] 13 Interventions Occupational therapist constructed a personal [employer] home exercises program for patient to assist [...] promote strengthening and maintaining flexibility. Access Code: [email or web address] URL: [email or web address] Date: 08/20/2024 Prepared by: Edgar Harris Exercises [...] - 10 reps BED MOBILITY Level of [place] Physical/Non-physical Assist Rolling/Turning Modified independence pt required [...] verbalized understanding. . Supine to Sit Modified [place] HOB elevated, Set-up required Pt provided instruction [...] b/l LE onto bed. TRANSFERS Level of [place] Physical/Non-physical Assist AE Sit to Stand Contact [...] Weight shift posterior to midline Level of [place] Balance Support Interventions Static Sit Standby assist [...] to ADLindependence. Pt verbalized understanding. Level of [place] Interventions Feeding Independent, Setup Bed level Grooming [...] 08/16/24 2 weeks Post treatment OT educated operations staff specialist security on patient ADL assist requirements, physical assist [...] Note Doron Felipe 74 y.o. female CSN: [id number] Room/Bed 208/208C Nutrition evaluation type: assessment Reason for evaluation: [facility] course: 74 yo female who is followed [...] Supplemental oxygen O2 Delivery Method: Nasal cannula Cutler Coma Scale Score: 15 Jann Scale Score: [...] (134 lb 14.7 oz) BMI (Calculated): 23.15 [place]off Body Weight (kg): 54.5 Percent [place] Body Weight: 112 Wt Readings from Last [...] Regular Adult Carbohydrate Restriction: Consistent CHO 2 (1164-1895 Damon, 80 g/meal) Adult Sodium Restriction: 2,000 mg Na Percent Meals Eaten (%): avg 81% (08/15-08/19) Diet Experience and Nutrition History: Diet Education Provided: Will monitor Pertinent home medications: Reviewed. Christian needs: Nutrition Focused Physical Exam: Unable to [...] right leg 02/12/2024 CHF (congestive heart failure) ([facility]/HCC) Chronic respiratory failure 2019 Clotting disorder ([facility]/HCC) Congenital malformation COPD (chronic obstructive pulmonary disease) ([facility]) 2019 Coronary artery disease CTS (carpal tunnel syndrome) Dental disease Depression Diabetes mellitus type I ([facility]) Disease of thyroid gland Eczema Fracture of left proximal fibula 04/09/2021 - Left proximal fibula fracture on 02/2021 after a mechanical fall. - Established with orthopedic surgery, no surgical intervention, WBAT. Heart disease Hepatitis B 1960 HL (hearing loss) Hypertension Hyperthyroidism 1960 Hypothyroidism 1960 Infectious viral hepatitis Myocardial infarction ([facility]/HCC) Peripheral neuropathy Pneumonia 06/01 Post-menopausal bleeding 05/08/2021 - Isolated episode of vaginal spotting in early 2021, no recurrence. Was evaluated with OBGYN in 10/2021, no intervention at this time, if recurrence of bleeding will likely require endometrial biopsy. 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 Scleritis. - Needs [facility] eye exam. - Was ableto get patient in with [facility] ophthalmology right after our clinic [...] SURGERY ANKLE FRACTURE SURGERY BREAST BIOPSY Right 2014 [facility] benign CARDIAC PACEMAKER PLACEMENT N/A Pacemaker Placement from [facility] CARPAL TUNNEL RELEASE N/A Neuroplasty Decompression Median Nerve At Carpal Tunnel from [facility] CERVICAL BIOPSY W/ LOOP ELECTRODE EXCISION 2010 SECTION, CLASSIC 1977, 1979 SECTION, LOW TRANSVERSE N/A Section from [facility] COLONOSCOPY N/A Complete Colonoscopy from [facility] CORONARY ARTERY BYPASS GRAFT N/A CABG from [facility] EYE SURGERY N/A Eye Surgery from [facility] FRACTURE SURGERY SPINE SURGERY THORACENTESIS TOE SURGERY Left 02/07/2024 hematoma removal of upper skin on L big toe TONSILLECTOMY N/A Tonsillectomy from [facility] [3] Social History Tobacco Use Smoking status: [...] 125 mcg, Oral, q AM magic mouthwash diphen/lido/uhcj-foe-gglacd, 15 mL, Swish & Spit, Before meals & nightly magnesium oxide, 400 mg, Oral, Daily metoprolol succinate XL, 25 mg, Oral, Daily Tiotropium Norton Monohydrate, 2 puff, Inhalation, Daily AND mometasone- [...] on Friday * Progress Notes - Yvonne Carballo PharmD - 08/20/2024 11:30 AM EDT Antithrombosis [...] No Patient Education : Neeru Carballo PharmD, [facility] Internal Medicine Clinical Pharmacist * Progress Notes - Boby Rouse Joel, ROENTGENOLOGY TEACHER - 08/20/2024 9:59 AM EDT Subjective No [...] 08/17/2024 Will continue to drain to - [id number] suction. - Will repeat chest x-ray tomorrow morning and consider chest tube removal. - Incentive Spirometry and mobilize/ out of bed as tolerated. This patient and plan of care has been discussed with Dr. Edward Bojorquez. Boby Rouse APRN Pager: [phone] * Nursing Note - Sujit Figueroa RN - 08/20/2024 6:57 AM EDT Pt knocked over chest tube atrium while attempting to get to bedside commode. RN replaced atrium and educated pt on the importance of using the call light. notified, no new orders at this time. [...] Center 09/08/2024 11:20 AM Alisa Kunz, DO [facility] 10/07/2024 4:00 PM [facility] ECHO 1 ECHOCHG [facility] 10/27/2024 1:40 PM Anne-Marie Kolb APRN ENDOTFBNBR [facility] 11/29/2024 10:20 AM Alisa Kunz, DO [facility] 02/02/2025 10:30 AM Sadiq Osborne MB[facility] Tk Hale, MS4 Cosigned by Kenneth James MD at 08/19/2024 3:22 PM EDT Associated attestation - Kenneth James MD - 08/19/2024 3:22 PM EDT I saw and evaluated the patient with the medical/ACETYLENE TORCH SOLDERER/PA student. I discussed the case with the medical/ACETYLENE TORCH SOLDERER/PA student and agree with the findings and [...] Hold Reason For Holding Warfarin: For procedure ([facility] 08/18) Bridging Agent in Conjunction With Warfarin? : No Patient Education : Incomplete Per team, still HOLDing warfarin today for procedure. Will continue to follow patient's clinical progress daily. Candace Bryan, IrajD, [facility] Clinical Pharmacist - Internal Medicine Available via [employer] * Procedures - Boby Rouse APRN - [...] below level ofpatients chest and drain to -30amU81 suction. After this intended time plan to place chest tube to -[id number] suction . Complications: None Recommendation Follow up chest x-ray tomorrow morning Avoid NSAIDS and steroids Drain to -97muE89 suction * Progress Notes - Yue Zaragoza - 08/19/2024 10:48 AM EDT Case Management Adult Progress Note Doron Felipe 74 y.o. female CSN: [id number] Admission: 08/14/2024 3:16 PM Primary Problem: Acute [...] AM EDT Brief Cardiology Follow up Note Doorn Felipe is a 74 y.o. female with [...] pleural effusions who initially presented to the [facility] with a chief complaint of [...] if further questions arise. Edgar Zaragoza MD [facility] [place] * Progress Notes - Macho Diaz - [...] only (use of w/c in community) Mobility [place] Independent gait with device History of Falls [...] to Physical Therapy treatment session. Visitors Present Bowling Alley Mechanic (if applicable) OBJECTIVE PAIN Pt notes discomfort [...] level of function. BED MOBILITY Level of [place] Physical/Non- physical Assist Adaptive Equipment Utilized Rolling/ Turning Independent Bed rails Scooting/ Bridging Stand-by assist (to scoot towards EOB) Verbal Cues Supine to Sit Stand-by assist Verbal Cues Sit to Supine Stand-by assist Verbal Cues Interventions TRANSFERS Level of [place] Physical/Non- physical Assist Adaptive Equipment Utilized Sit to Stand Contact guard Set-up required, Verbal Cues, Nonverbal cues (demo/gestures) Walker, rolling Stand to sit Contact guard Set-up required, Verbal Cues, Nonverbal cues (demo/gestures) Walker, rolling Bed to Chair Toilet Transfer Shower Transfer Interventions AMBULATION Level of [place] Distance Adaptive Equipment Utilized Ambulation Contact guard [...] Weight shift posterior to midline Level of [place] Balance Support Interventions Static Sit Standby assist Feet supported, Right upper extremity support, Left upper extremity support Dynamic Sit Standby assisst Feet supported Static Stand Contact guard Right upper extremity support, Left upper extremity support (via RW) Dynamic Stand Contact guard Right upper extremity support, Left upper extremity support (RW) STANDARDIZED ASSESSMENTS [facility] 6-Clicks Mobility Assessment Difficulty patient has turning [...] 3-5 steps with a railing?: A lot [facility] 6-Clicks Mobility Assessment Total : 17 ASSESSMENT [...] Hold Reason For Holding Warfarin: For procedure ([facility] 08/18) Bridging Agent in Conjunction With Warfarin? : No Patient Education : Incomplete Yvonne Carballo, PharmD, [facility] Internal Medicine Clinical Pharmacist * Progress [...] only (use of w/c in community) Mobility [place] Independent gait with device History of Falls [...] shoulders and head. BED MOBILITY Level of [place] Physical/Non-physical Assist Rolling/Turning Independent pt is physically [...] b/l LE onto bed. TRANSFERS Level of [place] Physical/Non-physical Assist AE Sit to Stand Contact [...] Weight shift posterior to midline Level of [place] Balance Support Interventions Static Sit Standby assist [...] to ADLindependence. Pt verbalized understanding. Level of [place] Interventions Feeding Independent, Setup Bed level Grooming [...] 08/16/24 2 weeks Post treatment OT educated operations staff specialist security on patient ADL assist requirements, physical assist [...] 08/19/2024 1:30 PM Lavern Shoemaker MD [facility] 09/08/2024 11:20 AM Alisa Kunz, [facility] 10/07/2024 4:00 PM [facility] ECHO 1 E[facility]CHG [facility] 10/27/2024 1:40 PM Anne-Marie Kolb, ROENTGENOLOGY TEACHER ENDOTFBNBR [facility] 11/29/2024 10:20 AM Alisa Kunz DO [facility] 02/02/2025 10:30 AM Sadiq Osborne MBBS [facility] Associated attestation - Kenneth James MD - 08/18/2024 5:37 PM EDT I saw and evaluated the patient with the medical/ACETYLENE TORCH SOLDERER/PA student. I discussed the case with the medical/ACETYLENE TORCH SOLDERER/PA student and agree with the findings and plan as documented. I personally performed the Examand Medical Decision Making. Acute threat to life/bodily function: Acute hypoxic respiratory failure. High risk: Drug therapy requiring intensive monitoring for toxicity: Lasix, monitoring urine outputand electrolytes. * Progress Notes - Boby Rouse, ROENTGENOLOGY TEACHER - 08/18/2024 8:46 AM EDT Subjective No [...] 08/17/2024 Will continue to drain to - 14ncQ33 suction. - Will repeat chest x-ray tomorrow morning and plan on right talc slurry chemical pleurodesis tomorrow 08/19/2024 at bedside. This patient and plan of care has been discussed with Dr. Edward Bojorquez. Boby Rouse APRN Pager: [phone] * Pre-Sedation Documentation - Edgar Zaragoza MD [...] been discussed with the patient and/or their patient admitting representative. All questions answered and they agree [...] pleural effusions who initially presented to the [facility] with a chief complaint of [...] Every morning ezetimibe (ZETIA) 10 mg, Nightly Cshkknolbwa-Uevedgmal-Shpmat (Trelegy Ellipta) 200-62.5-25 MCG/ACT aerosol powder 1 [...] morning spironolactone (ALDACTONE) 6.25 mg, Oral, Daily Waldemar FuentesoStar 14 Units, Subcutaneous, Every morning warfarin (Coumadin) [...] y.o. female who initially presented to the [facility] for shortness of breath associated [...] - maintain accurate I/Os - NPO at RI - plan for in and out [facility] on 08/18/2024 - continue diuresis The following cardiovascular risk factors and co-morbidities complicates the management of these conditions: Fluid & Electrolyte Disorders - borderline controlled with the following disturbances: hypokalemia and hypomagnesemia This consult will be staffed with the following attending physician: Dr Zamora. Please page the on-call science center display builder with any further questions. I spent 30 minutes performing the following components of the encounter (on the day of the encounter): reviewing History, examining the patient, reviewing imaging and/or labs, Independently interpreting echocardiogram, ECG and/or other imaging results, ordering tests or procedures, counseling the patient and family/caregiver, and communicating with other health caregiver services home. Greater than 50% of the time spent on the encounter was face to face providing direct patient care, counseling for the patient/caregiver, and care coordination. Edgar Zaragoza MD Fellow, Department of Cardiovascular Medicine [1] Past Medical History: Diagnosis Date 2019-nCoV acute respiratory disease 05/07/2022 Alcohol use Allergic 1973 Anemia Anxiety Arthritis Asthma Cellulitis 02/13/2024 Cellulitis of right leg 02/12/2024 CHF (congestive heart failure) ([facility]/HCC) Chronic respiratory failure 2019 Clotting disorder ([facility]/H[facility]) Congenital malformation COPD (chronic obstructive pulmonary disease) (CMS/[facility]) 2019 Coronary artery disease CTS (carpal [...] - Was ableto get patient in with [facility] ophthalmology right after our clinic [...] obstructive Stroke (CMS/HCC) Systemic lupus erythematosus, unspecified ([facility]/H[facility]) Lupus Varicella Visual impairment [2] Past Surgical History: Procedure Laterality Date ADENOIDECTOMY ADRENAL GLAND SURGERY ANKLE FRACTURE SURGERY BREAST BIOPSY Right 2013 u/s core benign CARDIAC PACEMAKER PLACEMENT N/A Pacemaker Placement from [facility] CARPAL TUNNEL RELEASE N/A Neuroplasty Decompression Median Nerve At Carpal Tunnel from [facility] CERVICAL BIOPSY W/ LOOP ELECTRODE EXCISION 2010 SECTION, CLASSIC 1976, 1979 SECTION, LOW TRANSVERSE N/A Section from [facility] COLONOSCOPY N/A Complete Colonoscopy from [facility] CORONARY ARTERY BYPASS GRAFT N/A CABG from [facility] EYE SURGERY N/A Eye Surgery from [facility] FRACTURE SURGERY SPINE SURGERY THORACENTESIS TOE SURGERY Left 02/07/2024 hematoma removal of upper skin on L big toe TONSILLECTOMY N/A Tonsillectomy from [facility] Cosigned by Brenden Zamora MD at 08/19/2024 [...] and monitoring. Date INR Dose 6/7 2.6 Hold 6/8 2.2 Hold 6/9 2.2 Hold 6/10 1.5 Hold Current Hematologic Labs INR (no [...] No Patient Education : Neeru Carballo PharmD, [facility] Internal Medicine Clinical Pharmacist * Progress Notes - AlexiaKellyn - 08/17/2024 12:13 PM EDT Images from the original note were not included. Hospital Medicine Progress Note Subjective Length of stay: 3 days Brief Patient Summary: Doron Felipe is a 74-year-old woman with a PMH significant for SLE on Plaquenil followed by [facility], chronic bl pleural effusions, chronic hypoxic respiratory [...] 08/19/2024 1:30 PM Lavern Shoemaker MD [facility] 09/08/2024 11:20 AM Alisa Kunz DO [facility] 10/07/2024 4:00 PM [facility] ECHO 1 ECHOCHG [facility] 10/27/2024 1:40 PM Anne-Marie Kolb APRN ENDOTFBNBR [facility] 11/29/2024 10:20 AM Alisa Kunz DO [facility] 02/02/2025 10:30 AM Sadiq Osborne MBBS [facility] Associated attestation - Kenneth James MD - 08/17/2024 4:37 PM EDT I saw and evaluated the patient with the medical/ACETYLENE TORCH SOLDERER/PA student. I discussed the case with the medical/ACETYLENE TORCH SOLDERER/PA student and agree with the findings and plan as documented. I personally performed the Examand Medical Decision Making. Acute threat to life/bodily function: Acute hypoxic respiratory failure. High risk: Drug therapy requiring intensive monitoring for toxicity: Lasix, monitoring urine outputand electrolytes. * Progress Notes - Boby Rouse, ROENTGENOLOGY TEACHER - 08/17/2024 10:47 AM EDT Subjective No [...] Dr. Edward Bojorquez. Boby Rouse APRN Pager: [phone] * Procedures - Boby Rouse APRN - [...] to water seal overnight then switch to -22amR55 suction tomorrow morning. Hold NSAIDS and steroids [...] Center 08/19/2024 1:30 PM Lavern Shoemaker MD [facility] 09/08/2024 11:20 AM Alisa Kunz, [facility] 10/07/2024 4:00 PM [facility] ECHO 1 ECHOCHG [facility] 10/27/2024 1:40 PM Anne-Marie Kolb APRN ENDOSHWETABR [facility] 11/29/2024 10:20 AM Alisa Kunz [facility] 02/02/2025 10:30 AM Sadiq Osborne MBBS [facility] Associated attestation - Doron Thayer MD - 08/16/2024 6:59 PM EDT I saw and evaluated the patient with the medical/ACETYLENE TORCH SOLDERER/PA student. I discussed the case with the medical/ACETYLENE TORCH SOLDERER/PA student and agree with the findings and [...] >1:1280, with negative results for MPO and MI-3. She is on plaqunil and MMF. 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 Results Review {Vanishing Link Review Results :[id number] I have reviewed the latest lab and [...] discussed with Dr. Edward Bojorquez. Boby Rouse, ROENTGENOLOGY TEACHER Pager: [phone] [1] Current Facility-Administered Medications Medication Dose Route [...] Arben Ibarra MD 25 mg at 08/16/24 0822 mycophenolate (Cellcept) capsule 1,000 mg [...] from the original note were not included. [id number] Warfarin Brand Name(s): Coumadin??, Jantoven??; also available [...] doctor or pharmacist will give you the it security engineer's patient information sheet (Medication Guide) when you begin treatment with warfarin and each time you refill your prescription. Read the information carefully and ask your doctor or pharmacist if you have any questions. You can also visit the Food and Drug Administration (FDA) website (https://www.fda.gov/downloads/Drugs/DrugSafety/uat536490.pdf) or the it security engineer's website to obtain the Medication Guide. Talk [...] Echinacea, garlic, Ginkgo biloba, ginseng, goldenseal, and Burna's wort; omeprazole (Prilosec); famotidine (Pepcid AC); aspirin [...] amounts of vitamin K-containing food on a aole-lh-pivq basis. Do not eat large amounts of [...] be awakened, immediately call emergency services at 850. Symptoms of overdose may include the following: [...] of all of the prescription and nonprescription (hmlx-pms-utmymcl) medicines you are taking, as well as [...] or pharmacist about specific clinical use. The [place] [employer] represents that the information provided hereunder was formulated with a reasonable standard of care, and in conformity with professional standards in the field. The [place] [employer] makes no representations or warranties, express or implied, including, but not limited to, any implied warranty of merchantability and/or fitness for a particular purpose, with respect to such information and specifically disclaims all such warranties. Users are advised that decisions regarding drug therapy are complex medical decisions requiring the independent, informed decision of an appropriate health career development coordinator/teacher, and the information is provided for informational purposes only. The entire monograph for a drug should be reviewed for a thorough understanding of the drug's actions, uses and side effects. The [place] [employer] does not endorse or recommend the use of any drug.The information is not a substitute for medical care. AHFS?? Patient Medication Information?. ?? Copyright, 2023. The [place] [employer]-System Pharmacists??, [address], [address], [place], [place]. All Rights Reserved. Duplication for commercial use must be authorized by [facility]. Selected Revisions: August 22, 2016. AHFS?? Patient [...] Patient Education : Incomplete Yvonne Carballo PharmD, [facility] Internal Medicine Clinical Pharmacist * Progress [...] right leg (02/12/2024), CHF (congestive heart failure) ([facility]), Chronic respiratoryfailure (2019), Clotting disorder ([facility]), Congenital malformation, COPD (chronic obstructive pulmonary disease) ([facility]) (2018), Coronary artery disease, CTS (carpal tunnel syndrome), Dental disease, Depression, Diabetes mellitus type I ([facility]), Disease of thyroid gland, Eczema, Fracture of left proximal fibula (04/09/2021), Heart disease, Hepatitis B (1960), HL (hearing loss), Hypertension, Hyperthyroidism (1960), Hypothyroidism (1960), Infectious viral hepatitis, Myocardial infarction ([facility]), Peripheral neuropathy, Pneumonia (06/01), Post- menopausal bleeding (05/08/2021), 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 Past Surgical [...] Chair since being admitted to the hospital. Bowling Alley Mechanic (if applicable) HOME LIVING/SET-UP Lives With Spouse [...] only (use of w/c in community) Mobility [place] Independent gait with device History of Falls [...] Multi-Step Commands: Consistently Method of Communication Verbal ([place], hearing aids not present) Additional Observations MOTOR [...] Treatment Minutes 23 BED MOBILITY Level of [place] Physical/Non- physical Assist Adaptive Equipment Utilized Scooting/ Bridging Stand-by assist (to scoot towards EOB) Verbal Cues Bed rails Supine to Sit Stand-by assist Verbal Cues Bed rails Sit to Supine Stand-by assist Verbal Cues Bed rails Interventions PT cued for BLE sequencing toward edge of bed along with self monitoring of symptoms with positional changes. TRANSFERS Level of [place] Physical/Non- physical Assist Adaptive Equipment Utilized Sit [...] Weight shift posterior to midline Level of [place] Balance Support Interventions Static Sit Standby assist Feet supported, Right upper extremity support, Left upper extremity support Dynamic Sit Standby assisst Feet supported Static Stand Contact guard Right upper extremity support, Left upper extremity support (via RW) Dynamic Stand Contact guard Right upper extremity support, Left upper extremity support (RW) AMBULATION Level of [place] Distance Adaptive Equipment Utilized Ambulation Contact guard assist 50ft Rolling walker Comments Patient ambulates with functional dawn and forward flexed posture. PT cued for upright posture and educated on paced activity and therapeutic rest breaks with increased fatigue. Patient reported 9/10 modified RPE following ambulation. Vitals stable throughout. PT presence was necessary for: * monitoring patient vital sign stability STANDARDIZED ASSESSMENTS [facility] 6-Clicks Mobility Assessment Difficulty patient has turning [...] 3-5 steps with a railing?: A little [facility] 6-Clicks Mobility Assessment Total : 20 ASSESSMENT [...] type (CMS/HCC) 3. Shortness of breath Procedures Past Medical History Patient has a past medical history of 2019-nCoV acute respiratory disease (05/07/2022), Alcohol use, Allergic (1972), Anemia, Anxiety, Arthritis, Asthma, Cellulitis (02/13/2024), Cellulitis of right leg (02/12/2024), CHF (congestive heart failure) ([facility]), Chronic respiratory failure (2019), Clotting disorder ([facility]), Congenital malformation, COPD (chronic obstructive pulmonary disease) ([facility]) (2018), Coronary artery disease, CTS (carpal tunnel syndrome), Dental disease, Depression, Diabetes mellitus type I ([facility]), Disease of thyroid gland, Eczema, Fracture of left proximal fibula (04/09/2021), Heart disease, Hepatitis B (1960), HL (hearing loss), Hypertension, Hyperthyroidism (1960), Hypothyroidism (1960), Infectious viral hepatitis, Myocardial infarction ([facility]), Peripheral neuropathy, Pneumonia (06/01), Post-menopausal bleeding (05/08/2021), 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 Past Surgical [...] only (use of w/c in community) Mobility [place] Independent gait with device History of Falls [...] Multi-Step Commands: Consistently Method of Communication Verbal ([place], hearing aids not present) VISION Baseline Vision [...] Touch Sensation Intact BED MOBILITY Level of [place] Physical/Non-physical Assist Adaptive Equipment Utilized Scooting/ Bridging Stand-by assist (to scoot towards EOB) Verbal Cues Bed rails Supine to Sit Stand-by assist Verbal Cues Bed rails Sit to Supine Stand-by assist Verbal Cues Bed rails TRANSFERS Level of [place] Physical/Non-physical Assist Adaptive Equipment Utilized Sit to [...] Weight shift posterior to midline Level of [place] Balance Support Static Sit Standby assist Feet supported, Right upper extremity support, Left upper extremity support Dynamic Sit Standby assisst Feet supported Static Stand Contact guard Right upper extremity support, Left upper extremity support (via RW) Dynamic Stand Contact guard Right upper extremity support, Left upper extremity support (via RW) STANDARDIZED ASSESSMENTS [facility] 6-Click Daily Activities Help from Other: Don/Doff Regular Lower Body Clothings: Little Help From Other: Bathing: Little Help From Other: Toileting: Little Help From Other: Don/Doff Upper Body Clothings: Little Help From Other: Grooming: Little Help From Other: Eating Meals: None [facility] 6 Click - Daily Activities Score: 19 [...] needed areas of treatment space. Level of [place] Interventions Grooming SBA, Setup Edge of bed [...] and each exercise reviewed. Pt verbalized understanding. [employer] Access Details (if appropriate) Access Code: [email or web address] URL: [email or web address] Date: 08/16/24 Exercises Included - Seated Shoulder [...] Note Doron Felipe 74 y.o. female CSN: [id number] Admission: 08/14/2024 3:16 PM Primary Problem: Acute on chronic hypoxic respiratory failure S3B Multi Sensor Operator reviewed chart and spoke with patient via phone to complete this Initial Case Management Assessment. PCP: Alisa Kunz DO Emergency Contact: Extended Emergency Contact Information Primary Emergency Contact: Diann Jamilanda Mobile Relation: Daughter Preferred language: Citizen Of [place] Bowling Alley Mechanic needed? No Secondary Emergency Contact: Doron Felipe Address: [address] [place] Relation: Spouse Insurance: Primary Visit Coverage Payer Plan Sponsor Code Group Number Group Name [facility] RE[facility] [id number] Primary Visit Coverage Subscriber Subscriber ID Subscriber Name Subscriber SSN Subscriber Address [id number] DORON FELIPE [id number] [place] [address] Patient information: Primary Caregiver: Family Support System: Immediate family, Extended family Daily Living Activities: Functional Status: Maximum assistance Living Arrangements: Family Type of Residence: Private residence, Single Level [address] [place] [address] Smoker in the Home?: No Current DME: Equipment Currently Used at Home: wheelchair, manual, walker, rolling, oxygen, cane, straight, commode chair, shower chair Current DME Provider: Pt reported having HH previous with [facility]. Pt utilize [facility] for 02;[phone] Income Information: Income Source: Retired Income/Expense Information: [...] having HH previous with [facility]. Pt utilize [facility] for [phone] Living Will/Advance Directive/Power of Grader Meat /Guardian: Unable to assess: No Have you reviewed your Advance Directive and is it valid for this stay?: Yes Advance Directive: Patient has advance directive, copy in chart Type of Healthcare Directive: Durable power of commercial real estate attorney for health care Information Provided on Healthcare Directives: No Pre-existing DNR/DNI Order: No Patient Requests Assistance: No Additional Comments: SW introduced himself and CM role. Pt confirmed demographics, PCP, EC and insurance on face sheet are accurate. Pt lives at [address] [place] [address] with her Doron Felipe. Pt reported herhome [...] 02 at home that is provided by [facility]. [facility] number is [phone]/Address: [address] [place] [address]. Pt reported that she pays for Private Caregiver. Pt reported private caregiver name is Mrs. Quick.Pt reported that she utilize [facility] for HH services and reported to that she would like to utilize them again if needed. Preferred pharmacy- [facility] - [address] Pt's spouse /family to provide transportation upon discharge. Pt reported no issues with Housing, Food, Utilities, Transportation or Safety issues at this time. Pt reported their highest level of education is College. SW will continue to follow and assist as needed. Nathan Lima MSW, FIXED INCOME TRADING VICE PRESIDENT * Progress Notes - Tk Hale - [...] 08/19/2024 1:30 PM Lavern Shoemaker MD [facility] 09/08/2024 11:20 AM Alisa Kunz, [facility] 10/07/2024 4:00 PM [facility] ECHO 1 ECHOCHG [facility] 10/27/2024 1:40 PM Anne-Marie Kolb, YAMILET ENDOTFBN[facility] 11/29/2024 10:20 AM Alisa Kunz, [facility] 02/02/2025 10:30 AM Sadiq Osborne MBBS [facility] Associated attestation - Doron Thayer MD - 08/15/2024 6:38 PM EDT I saw and evaluated the patient with the medical/ACETYLENE TORCH SOLDERER/PA student. I discussed the case with the medical/ACETYLENE TORCH SOLDERER/PA student and agree with the findings and [...] Note Doron Felipe 74 y.o. female CSN: [id number] Admission: 08/14/2024 3:16 PM Primary Problem: Acute [...] their progress and discharge plan. Nathan Lima, TEST ENG, FIXED INCOME TRADING VICE PRESIDENT * Hospital Course - Kelly Halen - 08/15/2024 8:53 AM EDT Doron Felipe [...] Wednesday 08/16. Dr. Ibarra ok w/ stopping SQ. -D/w patient and confirmed with patient her [...] 08/14/2024 5:27 PM EDTAssociated Order(s): Consult to [facility] Consult to [facility] Consult performed by: Arben Ibarra MD [...] nursing staff report that she had some bradycardia on telemetry monitoring. We will check EKG in [...] Code Status Full Code Arben Ibarra MD [facility] Medicine [1] Social History Tobacco Use Smoking [...] patient after transfer to Main ED from [facility] I personally performed my own history, ROS, and physical. I agree with the above [facility] documentation with the following additions/exceptions: Doron Felipe [...] chest pain, n/v. History provided by: Patient print shop chief clerk used: No Patient History Past Medical History[1] [...] Ordering Provider 08/14/24 1447 CMP STAT [facility] JE[facility]ERS 08/14/24 1447 Magnesium STAT In process [facility] JE[facility] 08/14/24 1447 Troponin now and 120 min STAT In [facility] Ibarra 08/14/24 1447 CBC w/diff STAT Final result [facility] JEFFERS 08/14/24 1447 BNP STAT [facility] JEFFERS 08/14/24 1447 XR Chest 1 View One time imaging In process [facility] JEFFERS 08/14/24 1427 EKG now - [...] (CMS/HCC) Chronic respiratory failure 2019 Clotting disorder ([facility]/HCC) Congenital malformation COPD (chronic obstructive pulmonary disease) (CMS/HCC) 2019 Coronary artery disease CTS (carpal tunnel syndrome) Dental disease Depression Diabetes mellitus type I ([facility]/HCC) Disease of thyroid gland Eczema Fracture of [...] - Was ableto get patient in with [facility] ophthalmology right after our clinic [...] CARDIAC PACEMAKER PLACEMENT N/A Pacemaker Placement from [facility] CARPAL TUNNEL RELEASE N/A Neuroplasty Decompression Median Nerve At Carpal Tunnel from [facility] CERVICAL BIOPSY W/ LOOP ELECTRODE EXCISION 2010 SECTION, CLASSIC 1976, 1979 SECTION, LOW TRANSVERSE N/A Section from [facility] COLONOSCOPY N/A Complete Colonoscopy from [facility] CORONARY ARTERY BYPASS GRAFT N/A CABG from [facility] EYE SURGERY N/A Eye Surgery from [facility] FRACTURE SURGERY SPINE SURGERY THORACENTESIS TOE SURGERY Left 02/07/2024 hematoma removal of upper skin on L big toe TONSILLECTOMY N/A Tonsillectomy from [facility] [3] Family History Problem Relation Name Age of Onset Conversions - Other Mother gracy otf alfredito neville Goiter (Diffuse Nontoxic) Heart disease Mother gracy otf neville Hypertension Mother gracy celsaer alfredito [place] Stroke Mother gracy celsaer alfredito [place] COPD Mother gracy celsaer alfredito [place] Alpha-1 antitrypsin deficiency Mother gracy otf [place] Arthritis Father Doron Antunez Hypercholesterolemia Father Doron Antunez Obesity Father Doron Antunez COPD Father Doron Antunez Alcohol abuse Father Doron Antunez Diabetes Sibling Cancer Other Doron E [place] Conversions - Other Other Goiter (Diffuse Nontoxic) [...] Description 09/08/2024 11:20 AM EDT Office Visit [facility] Internal Medicine [address]rd [place] [phone] Alisa Kunz, DO [address] [place] [address] 10/07/2024 4:00 PM EDT Appointment Cardiac Imaging [address] [place] [address] 10/14/2024 4:00 PM EDT Office Visit [facility] Medicine Specialties [address], [address] [place] [address] Lavern Shoemaker MD [address] [place] [address] 10/27/2024 1:40 PM EDT Office Visit [facility] Endocrinology [address] [place] [phone] Anne-Marie Kolb, ROENTGENOLOGY TEACHER [address] [facility] [address] [place] [phone] 11/29/2024 10:20 AM EDT Office Visit [facility] Internal Medicine [address] [place] [phone] Ze, Alisa L, DO [address] [place] [address] 02/02/2025 10:30 AM EST Office Visit [facility] Medicine Specialties [address], [address] [place] [address] Sadiq Osborne, MBBS [address] [place] [address] Pending Results Name Type Priority Associated Diagnoses Date /Time AFB Culture and Acid Fast Stain - Pleural Right Microbiology Routine 08/17/2024 10:57 AM EDT Scheduled Referrals Name Type Priority Associated Diagnoses Order Schedule Discharge Ambulatory referral to [facility] Outpatient Referral Routine Pleural effusion 1 Occurrences [...] POCT glucose meter (08/24/2024 11:36 AM EDT) [facility] POCT Glucose 263(H) 74 - 99 mg/dL 08/24/2024 11:44 AM EDT [facility] Comment:Accuracy of a glucos e [...] for testing. Comment 08/24/2024 11:44 AM EDT [facility] Parts Washer ID Partha Zhu 08/25/19 11:44 AM EDT [facility] Device ID [id number] 08/24/2024 11:44 AM EDT [facility]ALTHCARE LAB Specimen Type POC Capillary 08/24/2024 11:44 AM EDT [facility]ALTH[facility]ARE LAB Blood Capillary blood specimen / Unknown 08/24/2024 11:36 AM EDT 08/24/2024 11:44 AM EDT Doron Thayer MD LAB POINT OF CARE TE ST DOCKED DEVICE UNSOLICITED RESULTS Final Result Performing Organization Address City/[facility] Co de Phone Number HEALTHCARE LAB [address] [place] [address] * (ABNORMAL) POCT glucose meter (08/24/2024 7:37 [...] Comment 08/24/2024 7:41 AM EDT HEALTHCARE LAB Parts Washer ID Partha Zhu 08/25/19 7:41 AM EDT HEALTHCARE LAB Device ID [id number] 08/24/2024 7:41 AM EDT [facility] Specimen Type POC Capillary 08/24/2024 7:41 AM EDT [facility] Blood Capillary blood specimen / Unknown 08/24/2024 7:37 AM EDT 08/24/2024 7:41 AM EDT Doron Thayer MD LAB POINT OF CARE TE ST DOCKED DEVICE UNSOLICITED RESULTS Final Result Performing Organization Address City/[facility] Co de Phone Number HEALTHCARE LAB [address] [place] [address] * (ABNORMAL) Prothrombin Time/INR (08/24/2024 3:43 AM [...] INR 2.5 to 3.5 Prevention of recurrent NC INR 2.5 to 3.5 us Kenneth James MD LAB BLOOD ORDERABLES Final Res ult [facility] [address] [place] [address] * (ABNORMAL) Basic metabolic panel (08/24/2024 3:43 [...] ORDERABLES Final Res ult Performing Organization Address City/[facility]/ZIP Co de Phone Number [facility] [address] [place] [address] * POCT glucose meter (08/23/2024 7:09 PM [...] Comment 08/23/2024 7:11 PM EDT HEALTHCARE LAB Parts Washer ID Veronica Kellogg 025 7:11 PM EDT [facility] Device ID [id number] 08/23/2024 7:11 PM EDT HEALTHCARE LAB Specimen Type POC Capillary 08/23/2024 7:11 PM EDT [facility] Blood Capillary blood specimen / Unknown 08/23/2024 7:09 PM EDT 08/23/2024 7:11 PM EDT us Kenneth James MD LAB POINT OF CARE TE ST DOCKED DEVICE UNSOLICITED RESULTS Final Result Performing Organization Address City/[facility]/ZIP Co de Phone Number HEALTHCARE [facility] [address] [place] [address] * (ABNORMAL) POCT glucose meter (08/23/2024 3:58 [...] Comment 08/23/2024 4:04 PM EDT HEALTHCARE LAB Parts Washer ID Guillermo Marquez 08/24/19 25 4:04 PM EDT HEALTHCARE LAB Device ID [id number] 08/23/2024 4:04 PM EDT HEALTHCARE LAB Specimen Type POC Capillary 08/23/2024 4:04 PM EDT [facility] Blood Capillary blood specimen / Unknown 08/23/2024 3:58 PM EDT 08/23/2024 4:04 PM EDT Kenneth James MD LAB POINT OF CARE TE ST DOCKED DEVICE UNSOLICITED RESULTS Final Result Performing Organization Address City/State/[facility] Co de Phone Number [facility] [address] [place] [address] * XR Chest 1 View (08/23/2024 2:20 PM EDT) Anatomical Region Laterality Modality Chest Digital Radiogra phy Impressions 08/23/2024 2:22 PM EDT No significant pneumothorax following chest tube removal. CRITICAL RESULT: No. COMMUNICATION: Per this written report. Drafted by Edgra Welch MD on 08/23/2024 2:21 PM Final [...] MD on 08/23/2024 2:22 PM us Boby Rouse ROENTGENOLOGY TEACHER IMG XR PROCEDURES Final Res ult * (ABNORMAL) POCT glucose meter (08/23/2024 11:41 AM EDT) [facility] POCT Glucose 223(H) 74 - 99 mg/dL 08/23/2024 11:43 AM EDT HEALTHCARE LAB Comment:Accuracy of a [...] Comment 08/23/2024 11:43 AM EDT HEALTHCARE LAB Parts Washer ID Marilee Fabian 08/23/2024 11:43 AM EDT HEALTHCARE LAB Device ID [id number] 08/23/2024 11:43 AM EDT [facility] Specimen Type POC Capillary 08/23/2024 11:43 AM EDT [facility] Blood Capillary blood specimen / Unknown 08/23/2024 11:41 AM EDT 08/23/2024 11:43 AM EDT Kenneth James MD LAB POINT OF CARE TE ST DOCKED DEVICE UNSOLICITED RESULTS Final Result [facility] [address] [place] [address] * (ABNORMAL) POCT glucose meter (08/23/2024 7:37 AM EDT) [facility] POCT Glucose 156(H) 74 - 99 mg/dL [...] Comment 08/23/2024 7:38 AM EDT HEALTHCARE LAB Parts Washer ID Marjorie Cortez 08/24/19 7:38 AM EDT HEALTHCARE LAB Device ID [id number] 08/23/2024 7:38 AM EDT [facility] Specimen Type POC Capillary 08/23/2024 7:38 AM EDT [facility] Blood Capillary blood specimen / Unknown 08/23/2024 7:37 AM EDT 08/23/2024 7:38 AM EDT Kenneth James MD LAB POINT OF CARE TE ST DOCKED DEVICE UNSOLICITED RESULTS Final Result Performing Organization Address City/State/[facility] Co de Phone Number HEALTHCARE LAB [address] [place] [address] * (ABNORMAL) Prothrombin Time/INR (08/23/2024 3:19 AM EDT) [facility] Prothrombin Time 14.4(H) 12.0 - 14.3 sec [...] INR 2.5 to 3.5 Prevention of recurrent NC INR 2.5 to 3.5 us Kenneth James MD LAB BLOOD ORDERABLES Final Res ult [facility] [address] [place] [address] * (ABNORMAL) Basic metabolic panel (08/23/2024 3:19 [...] 3:19 AM EDT 08/23/2024 3:25 AM EDT Kenneth James MD LAB BLOOD ORDERABLES Final Res ult Performing Organization Address City/[facility]/ZIP Co de Phone Number [facility] [address] [place] [address] * (ABNORMAL) POCT glucose meter (08/23/2024 3:08 AM EDT) POCT Glucose 261(H) 74 - 99 mg/dL 08/23/2024 3:09 AM EDT [facility] Comment:Accuracy of [...] for testing. Comment 08/23/2024 3:09 AM EDT [facility] Parts Washer ID Karson Kaufman 08/24/19 3:09 AM EDT [facility] Device ID [id number] 08/23/2024 3:09 AM EDT [facility] Specimen Type POC Capillary 08/23/2024 3:09 AM EDT [facility] Blood Capillary blood specimen / Unknown 08/23/2024 3:08 AM EDT 08/23/2024 3:09 AM EDT Kenneth James MD LAB POINT OF CARE TE ST DOCKED DEVICE UNSOLICITED RESULTS Final Result Performing Organization Address City/[facility]/ZIP Co de Phone Number HEALTHCARE [facility] [address] [place] [address] * (ABNORMAL) POCT glucose meter (08/22/2024 9:36 [...] 08/22/2024 9:37 PM EDT [facility] Parts Washer ID Puja Le 08/22/2024 9:37 PM EDT [facility] Device ID [id number] 08/22/2024 9:37 PM EDT [facility] Specimen Type POC Capillary 08/22/2024 9:37 PM EDT [facility] Blood Capillary blood specimen / Unknown 08/22/2024 9:36 PM EDT 08/22/2024 9:37 PM EDT us Kenneth James MD LAB POINT OF CARE TE ST DOCKED DEVICE UNSOLICITED RESULTS Final Result Performing Organization Address City/[facility]/ZIP Co de Phone Number [facility]ALTH[facility]ARE [facility] [address] [place] [address] * (ABNORMAL) POCT glucose meter (08/22/2024 8:19 PM EDT) [facility] POCT Glucose 248(H) 74 - 99 mg/dL [...] 08/22/2024 8:20 PM EDT [facility] Parts Washer ID Karson Kaufman 08/23/19 8:20 PM EDT [facility] Device ID [id number] 08/22/2024 8:20 PM EDT [facility] Specimen Type POC Capillary 08/22/2024 8:20 PM EDT [facility] Blood Capillary blood specimen / Unknown 08/22/2024 8:19 PM EDT 08/22/2024 8:20 PM EDT us Kenneth James MD LAB POINT OF CARE TE ST DOCKED DEVICE UNSOLICITED RESULTS Final Result [facility] [address] [place] [address] * (ABNORMAL) Basic metabolic panel (08/22/2024 5:53 [...] [facility] [address] [place] [address] * (ABNORMAL) POCT glucose meter (08/22/2024 5:46 PM EDT) [facility] POCT Glucose 102(H) 74 - 99 mg/dL [...] 08/22/2024 5:47 PM EDT [facility] Parts Washer ID Kosta Dugan 08/23/19 5:47 PM EDT HEALTHCARE LAB Device ID [id number] 08/22/2024 5:47 PM EDT HEALTHCARE LAB Specimen Type POC Capillary 08/22/2024 5:47 PM EDT [facility]ALTH[facility]ARE LAB Blood Capillary blood specimen / Unknown 08/22/2024 5:46 PM EDT 08/22/2024 5:47 PM EDT Kenneth James MD LAB POINT OF CARE TE ST DOCKED DEVICE UNSOLICITED RESULTS Final Result [facility] [address] [place] [address] * POCT glucose meter (08/22/2024 4:25 PM EDT) [facility] POCT Glucose 78 74 - 99 [...] 08/22/2024 4:26 PM EDT [facility] Parts Washer ID La Tracey 08/22/2024 4:26 PM EDT [facility] Device ID [id number] 08/22/2024 4:26 PM EDT HEALTHCARE LAB Specimen Type POC Capillary 08/22/2024 4:26 PM EDT [facility] Blood Capillary blood specimen / Unknown 08/22/2024 4:25 PM EDT 08/22/2024 4:26 PM EDT Kenneth James MD LAB POINT OF CARE TE ST DOCKED DEVICE UNSOLICITED RESULTS Final Result [facility] [address] [place] [address] * XR Chest 1 View (08/22/2024 11:31 [...] POCT glucose meter (08/22/2024 11:18 AM EDT) [facility] POCT Glucose 395(H) 74 - 99 mg/dL 08/22/2024 11:20 AM EDT HEALTHCARE LAB Comment:Accuracy of a [...] Comment 08/22/2024 11:20 AM EDT HEALTHCARE LAB Parts Washer ID La Tracey 08/22/2024 11:20 AM EDT [facility] Device ID [id number] 08/22/2024 11:20 AM EDT HEALTHCARE LAB Specimen Type POC Capillary 08/22/2024 11:20 AM EDT [facility] Blood Capillary blood specimen / Unknown 08/22/2024 11:18 AM EDT 08/22/2024 11:20 AM EDT Kenneth James MD LAB POINT OF CARE TE ST DOCKED DEVICE UNSOLICITED RESULTS Final Result Performing Organization Address City/State/[facility] Co de Phone Number [facility]ALTH[facility]ARE LAB [address] [place] [address] * (ABNORMAL) POCT glucose meter (08/22/2024 7:30 AM EDT) [facility] POCT Glucose 378(H) 74 - 99 mg/dL [...] for testing. Comment 08/22/2024 7:32 AM EDT [facility] Parts Washer ID La Tracey 08/22/2024 7:32 AM EDT [facility] Device ID [id number] 08/22/2024 7:32 AM EDT HEALTHCARE LAB Specimen Type POC Capillary 08/22/2024 7:32 AM EDT [facility] Blood Capillary blood specimen / Unknown 08/22/2024 7:30 AM EDT 08/22/2024 7:32 AM EDT Kenneth James MD LAB POINT OF CARE TE ST DOCKED DEVICE UNSOLICITED RESULTS Final Result Performing Organization Address City/[facility] Co de Phone Number [facility] [address] [place] [address] * (ABNORMAL) Prothrombin Time/INR (08/22/2024 6:01 AM [...] INR 2.5 to 3.5 Prevention of recurrent [place] INR 2.5 to 3.5 Kenneth James MD LAB BLOOD ORDERABLES Final Res ult [facility] [address] [place] [address] * (ABNORMAL) Basic Metabolic Panel, Plasma (08/22/2024 [...] [facility] [address] [place] [address] * (ABNORMAL) POCT glucose meter (08/21/2024 9:26 PM EDT) POCT Glucose 195(H) 74 - 99 mg/dL 08/21/2024 9:28 PM EDT [facility] Comment:Accuracy of [...] Comment 08/21/2024 9:28 PM EDT HEALTHCARE LAB Parts Washer ID Hazel Keller 08/22/19 9:28 PM EDT HEALTHCARE LAB Device ID [id number] 08/21/2024 9:28 PM EDT HEALTHCARE LAB Specimen Type POC Capillary 08/21/2024 9:28 PM EDT [facility] Blood Capillary blood specimen / Unknown 08/21/2024 9:26 PM EDT 08/21/2024 9:28 PM EDT us Kenneth James MD LAB POINT OF CARE TE ST DOCKED DEVICE UNSOLICITED RESULTS Final Result Performing Organization Address City/[facility]/ZIP Co de Phone Number [facility]ALTHCARE LAB [address] [place] [address] * Lavender Top (08/21/2024 5:23 PM EDT) Pathologist [facility] Extra Hold for add-ons 08/21/2024 9:02 PM EDT [facility] Comment:Auto resulted. Blood Venous blood specimen / Unknown 08/21/2024 5:23 PM EDT 08/21/2024 6:26 PM EDT us Kenneth James MD LAB BLOOD ORDERABLES Final Res ult [facility] [address] [place] [address] * (ABNORMAL) Basic metabolic panel (08/21/2024 5:23 [...] [facility] [address] [place] [address] * POCT glucose meter (08/21/2024 4:18 PM EDT) POCT Glucose 95 74 - 99 mg/dL 08/21/2024 4:23 PM EDT [facility] Comment:Accuracy of a glucos e result [...] 08/21/2024 4:23 PM EDT [facility] Parts Washer ID Alysia Werner 08/22/19 4:23 PM EDT HEALTHCARE LAB Device ID [id number] 08/21/2024 4:23 PM EDT HEALTH[facility]ARE LAB Specimen Type POC Capillary 08/21/2024 4:23 PM EDT HEALTH[facility]ARE LAB Blood Capillary blood specimen / Unknown 08/21/2024 4:18 PM EDT 08/21/2024 4:23 PM EDT Kenneth James MD LAB POINT OF CARE TE ST DOCKED DEVICE UNSOLICITED RESULTS Final Result Performing Organization Address City/[facility]/ZIP Co de Phone Number [facility] [address] [place] [address] * (ABNORMAL) POCT glucose meter (08/21/2024 11:24 AM EDT) POCT Glucose 330(H) 74 - 99 mg/dL [...] Comment 08/21/2024 11:27 AM EDT HEALTHCARE LAB Parts Washer ID Alysia Werner 08/22/19 11:27 AM EDT HEALTHCARE LAB Device ID [id number] 08/21/2024 11:27 AM EDT HEALTHCARE LAB Specimen Type POC Capillary 08/21/2024 11:27 AM EDT [facility]ALTH[facility]ARE LAB Blood Capillary blood specimen / Unknown 08/21/2024 11:24 AM EDT 08/21/2024 11:27 AM EDT us Kenneth James MD LAB POINT OF CARE TE ST DOCKED DEVICE UNSOLICITED RESULTS Final Result Performing Organization Address City/[facility]/ZIP Co de Phone Number [facility] [address] [place] [address] * (ABNORMAL) POCT glucose meter (08/21/2024 8:05 [...] Comment 08/21/2024 8:06 AM EDT HEALTHCARE LAB Parts Washer ID Alysia Werner 08/22/19 25 8:06 AM EDT HEALTHCARE LAB Device ID [id number] 08/21/2024 8:06 AM EDT HEALTHCARE LAB Specimen Type POC Capillary 08/21/2024 8:06 AM EDT [facility]ALTH[facility]ARE LAB Blood Capillary blood specimen / Unknown 08/21/2024 8:05 AM EDT 08/21/2024 8:06 AM EDT Kenneth James MD LAB POINT OF CARE TE ST DOCKED DEVICE UNSOLICITED RESULTS Final Result Performing Organization Address City/State/[facility] Co de Phone Number [facility]ALTHCARE LAB [address] [place] [address] * XR Chest 1 View (08/21/2024 7:01 [...] MD on 08/21/2024 2:34 PM Boby Rouse ROENTGENOLOGY TEACHER IMG XR PROCEDURES Final Res ult * [...] INR 2.5 to 3.5 Prevention of recurrent NC INR 2.5 to 3.5 Kenneth James MD LAB BLOOD ORDERABLES Final Res ult [facility] [address] [place] [address] * (ABNORMAL) Basic metabolic panel (08/21/2024 4:04 [...] AM EDT 08/21/2024 4:31 AM EDT us eKnneth James MD LAB BLOOD ORDERABLES Final Res ult [facility] [address] [place] [address] * (ABNORMAL) POCT glucose meter (08/21/2024 3:47 [...] for testing. Comment 08/21/2024 3:49 AM EDT [facility] Parts Washer ID Marlene Jain 08/21/2024 3:49 AM EDT [facility] Device ID [id number] 08/21/2024 3:49 AM EDT [facility] Specimen Type POC Capillary 08/21/2024 3:49 AM EDT [facility]ALTH[facility]ARE LAB Blood Capillary blood specimen / Unknown 08/21/2024 3:47 AM EDT 08/21/2024 3:49 AM EDT Kenneth James MD LAB POINT OF CARE TE ST DOCKED DEVICE UNSOLICITED RESULTS Final Result [facility] [address] [place] [address] * (ABNORMAL) POCT glucose meter (08/20/2024 7:51 PM EDT) [facility] POCT Glucose 275(H) 74 - 99 mg/dL [...] 08/20/2024 7:52 PM EDT [facility] Parts Washer ID Karson Kaufman 08/21/19 7:52 PM EDT [facility] Device ID [id number] 08/20/2024 7:52 PM EDT [facility] Specimen Type POC Capillary 08/20/2024 7:52 PM EDT [facility] Blood Capillary blood specimen / Unknown 08/20/2024 7:51 PM EDT 08/20/2024 7:52 PM EDT Kenneth James MD LAB POINT OF CARE TE ST DOCKED DEVICE UNSOLICITED RESULTS Final Result Performing Organization Address [facility] de Phone Number [facility] [address] [place] [address] * (ABNORMAL) POCT glucose meter (08/20/2024 5:05 PM EDT) [facility] POCT Glucose 217(H) 74 - 99 mg/dL [...] Comment 08/20/2024 5:08 PM EDT HEALTHCARE LAB Parts Washer ID Basia Cole 08/20/2024 5:08 PM EDT [facility] Device ID [id number] 08/20/2024 5:08 PM EDT [facility] Specimen Type POC Capillary 08/20/2024 5:08 PM EDT [facility] Blood Capillary blood specimen / Unknown 08/20/2024 5:05 PM EDT 08/20/2024 5:08 PM EDT Kenneth James MD LAB POINT OF CARE TE ST DOCKED DEVICE UNSOLICITED RESULTS Final Result Performing Organization Address City/[facility] Co de Phone Number HEALTHCARE LAB [address] [place] [address] * (ABNORMAL) POCT glucose meter (08/20/2024 12:16 PM EDT) Pathologist [facility] POCT Glucose 373(H) 74 - 99 mg/dL [...] for testing. Comment 08/20/2024 12:18 PM EDT [facility] Parts Washer ID Basia Cole 08/20/2024 12:18 PM EDT [facility] Device ID [id number] 08/20/2024 12:18 PM EDT [facility] Specimen Type POC Capillary 08/20/2024 12:18 PM EDT [facility]ALTH[facility]ARE LAB Blood Capillary blood specimen / Unknown 08/20/2024 12:16 PM EDT 08/20/2024 12:18 PM EDT us Kenneth James MD LAB POINT OF CARE TE ST DOCKED DEVICE UNSOLICITED RESULTS Final Result Performing Organization Address [facility] de Phone Number [facility] [address] [place] [address] * (ABNORMAL) POCT glucose meter (08/20/2024 8:14 [...] 08/20/2024 8:16 AM EDT [facility] Parts Washer ID Basia Cole 08/20/2024 8:16 AM EDT HEALTHCARE LAB Device ID [id number] 08/20/2024 8:16 AM EDT HEALTHCARE LAB Specimen Type POC Capillary 08/20/2024 8:16 AM EDT [facility]ALTHCARE LAB Blood Capillary blood specimen / Unknown 08/20/2024 8:14 AM EDT 08/20/2024 8:16 AM EDT us Kenneth James MD LAB POINT OF CARE TE ST DOCKED DEVICE UNSOLICITED RESULTS Final Result Performing Organization Address City/[facility]/ZIP Co de Phone Number [facility] [address] [place] [address] * XR Chest 1 View (08/20/2024 6:58 AM EDT) Anatomical Region Laterality Modality Chest Digital Radiogra phy Impressions 08/20/2024 9:55 AM EDT Slight improved aeration CRITICAL RESULT: No. COMMUNICATION: Per this written report. Drafted by Macho Muri MD on 08/20/2024 9:54 AM Final report [...] MD on 08/20/2024 9:55 AM Boby Rouse ROENTGENOLOGY TEACHER IMG XR PROCEDURES Final Res ult * [...] Comment 08/20/2024 3:25 AM EDT [facility] Parts Washer ID Karson Kaufman 08/21/19 3:25 AM EDT HEALTHCARE LAB Device ID [id number] 08/20/2024 3:25 AM EDT HEALTHCARE LAB Specimen Type POC Capillary 08/20/2024 3:25 AM EDT [facility] Blood Capillary blood specimen / Unknown 08/20/2024 3:23 AM EDT 08/20/2024 3:25 AM EDT Kenneth James MD LAB POINT OF CARE TE ST DOCKED DEVICE UNSOLICITED RESULTS Final Result Performing Organization Address [facility] Co de Phone Number [facility] [address] [place] [address] * Prothrombin Time/INR (08/20/2024 1:57 AM EDT) [...] INR 2.5 to 3.5 Prevention of recurrent [place] INR 2.5 to 3.5 us Kenneth James MD LAB BLOOD ORDERABLES Final Res ult [facility] [address] [place] [address] * (ABNORMAL) Magnesium (08/20/2024 1:57 AM EDT) Magnesium, Plasma 1.8(L) 1.9 - 2.4 mg/dL 08/20/2024 3:18 AM EDT [facility] Blood Venous blood specimen / Unknown Venipuncture / Unknown 08/20/2024 1:57 AM EDT 08/20/2024 2:02 AM EDT us Kenneth James MD LAB BLOOD ORDERABLES Final Res ult [facility] [address] [place] [address] * (ABNORMAL) Basic metabolic panel (08/20/2024 1:57 [...] [facility] [address] [place] [address] * (ABNORMAL) POCT glucose meter (08/19/2024 7:49 PM EDT) [facility] POCT Glucose 308(H) 74 - 99 mg/dL [...] 08/19/2024 7:51 PM EDT [facility] Parts Washer ID Karson Kaufman 08/20/19 7:51 PM EDT HEALTHCARE LAB Device ID [id number] 08/19/2024 7:51 PM EDT [facility]ALTH[facility]ARE LAB Specimen Type POC Capillary 08/19/2024 7:51 PM EDT [facility] Blood Capillary blood specimen / Unknown 08/19/2024 7:49 PM EDT 08/19/2024 7:51 PM EDT Kenneth James MD LAB POINT OF CARE TE ST DOCKED DEVICE UNSOLICITED RESULTS Final Result [facility] [address] [place] [address] * (ABNORMAL) POCT glucose meter (08/19/2024 4:03 PM EDT) [facility] POCT Glucose 279(H) 74 - 99 mg/dL 08/19/2024 4:04 PM EDT [facility]ALTH[facility]ARE LAB Comment:Accuracy of [...] Comment 08/19/2024 4:04 PM EDT [facility]ALTH[facility]ARE LAB Parts Washer ID Michelle Rolle 08/20/19 4:04 PM EDT [facility]ALTH[facility]ARE LAB Device ID [id number] 08/19/2024 4:04 PM EDT [facility]ALTH[facility]ARE LAB Specimen Type POC Capillary 08/19/2024 4:04 PM EDT [facility] LAB Blood Capillary blood specimen / Unknown 08/19/2024 4:03 PM EDT 08/19/2024 4:04 PM EDT Kenneth James MD LAB POINT OF CARE TE ST DOCKED DEVICE UNSOLICITED RESULTS Final Result [facility] [address] [place] [address] * (ABNORMAL) POCT glucose meter (08/19/2024 11:51 AM EDT) [facility] POCT Glucose 350(H) 74 - 99 mg/dL 08/19/2024 11:52 AM EDT [facility]ALTH[facility]ARE LAB Comment:Accuracy of a [...] Comment 08/19/2024 11:52 AM EDT [facility]ALTHCARE LAB Parts Washer ID Ekaterina Gustasfon 08/20/19 11:52 AM EDT [facility]ALTHCARE LAB Device ID [id number] 08/19/2024 11:52 AM EDT [facility]ALTH[facility]ARE LAB Specimen Type POC Capillary 08/19/2024 11:52 AM EDT [facility] Blood Capillary blood specimen / Unknown 08/19/2024 11:51 AM EDT 08/19/2024 11:52 AM EDT Kenneth James MD LAB POINT OF CARE TE ST DOCKED DEVICE UNSOLICITED RESULTS Final Result Performing Organization Address [facility] Co de Phone Number [facility] [address] [place] [address] * (ABNORMAL) POCT glucose meter (08/19/2024 8:06 [...] 08/19/2024 8:08 AM EDT [facility] Parts Washer ID Ekaterina Gustafson 08/20/19 25 8:08 AM EDT HEALTHCARE LAB Device ID [id number] 08/19/2024 8:08 AM EDT [facility]ALTH[facility]ARE LAB Specimen Type POC Capillary 08/19/2024 8:08 AM EDT [facility] Blood Capillary blood specimen / Unknown 08/19/2024 8:06 AM EDT 08/19/2024 8:08 AM EDT Kenneth James MD LAB POINT OF CARE TE ST DOCKED DEVICE UNSOLICITED RESULTS Final Result Performing Organization Address City/[facility]/ZIP Co de Phone Number [facility]ARE LAB [address] [place] [address] * XR Chest 1 View (08/19/2024 7:54 [...] MD on 08/19/2024 8:53 AM Boby Rouse ROENTGENOLOGY TEACHER IMG XR PROCEDURES Final Res ult * [...] INR 2.5 to 3.5 Prevention of recurrent [place] INR 2.5 to 3.5 Kenneth Jmaes MD LAB BLOOD ORDERABLES Final Res ult [facility] [address] [place] [address] * (ABNORMAL) Magnesium (08/19/2024 5:00 AM EDT) Magnesium, Plasma 1.7(L) 1.9 - 2.4 mg/dL 08/19/2024 5:47 AM EDT [facility] Blood Venous blood specimen / Unknown Venipuncture / Unknown 08/19/2024 5:00 AM EDT 08/19/2024 5:18 AM EDT Kenneth James MD LAB BLOOD ORDERABLES Final Res ult Performing Organization Address City/[facility]/ZIP Co de Phone Number [facility] [address] [place] [address] * (ABNORMAL) Basic metabolic panel (08/19/2024 5:00 [...] [facility] [address] [place] [address] * (ABNORMAL) POCT glucose meter (08/19/2024 3:40 AM EDT) [facility] POCT Glucose 198(H) 74 - 99 mg/dL [...] Comment 08/19/2024 3:41 AM EDT [facility]ALTHCARE LAB Parts Washer ID Veronica Kellogg 025 3:41 AM EDT HEALTHCARE LAB Device ID [id number] 08/19/2024 3:41 AM EDT [facility]ALTH[facility]ARE LAB Specimen Type POC Capillary 08/19/2024 3:41 AM EDT [facility] LAB Blood Capillary blood specimen / Unknown 08/19/2024 3:40 AM EDT 08/19/2024 3:41 AM EDT us Kenneth James MD LAB POINT OF CARE TE ST DOCKED DEVICE UNSOLICITED RESULTS Final Result [facility] [address] [place] [address] * (ABNORMAL) POCT glucose meter (08/19/2024 3:05 AM EDT) [facility] POCT Glucose 62(L) 74 - 99 mg/dL [...] 08/19/2024 3:07 AM EDT [facility] Parts Washer ID Darin Florez 3:07 AM EDT [facility] Device ID [id number] 08/19/2024 3:07 AM EDT [facility]ALTH[facility]ARE LAB Specimen Type POC Capillary 08/19/2024 3:07 AM EDT [facility] Blood Capillary blood specimen / Unknown 08/19/2024 3:05 AM EDT 08/19/2024 3:07 AM EDT Kenneth James MD LAB POINT OF CARE TE ST DOCKED DEVICE UNSOLICITED RESULTS Final Result [facility] [address] [place] [address] * (ABNORMAL) POCT glucose meter (08/19/2024 1:59 AM EDT) [facility] POCT Glucose 73(L) 74 - 99 [...] for testing. Comment 08/19/2024 2:02 AM EDT [facility] Parts Washer ID Darin Florez 2:02 AM EDT [facility] Device ID [id number] 08/19/2024 2:02 AM EDT [facility]ALTH[facility]ARE LAB Specimen Type POC Capillary 08/19/2024 2:02 AM EDT [facility] Blood Capillary blood specimen / Unknown 08/19/2024 1:59 AM EDT 08/19/2024 2:02 AM EDT Kenneth James MD LAB POINT OF CARE TE ST DOCKED DEVICE UNSOLICITED RESULTS Final Result [facility] [address] [place] [address] * (ABNORMAL) POCT glucose meter (08/19/2024 1:03 AM EDT) Pathologist [facility] POCT Glucose 51(L) 74 - 99 mg/dL [...] Comment 08/19/2024 1:05 AM EDT HEALTHCARE LAB Parts Washer ID Veronica Kellogg 025 1:05 AM EDT HEALTHCARE LAB Device ID [id number] 08/19/2024 1:05 AM EDT HEALTH[facility]ARE LAB Specimen Type POC Capillary 08/19/2024 1:05 AM EDT [facility] LAB Blood Capillary blood specimen / Unknown 08/19/2024 1:03 AM EDT 08/19/2024 1:05 AM EDT Kenneth James MD LAB POINT OF CARE TE ST DOCKED DEVICE UNSOLICITED RESULTS Final Result [facility] [address] [place] [address] * (ABNORMAL) POCT glucose meter (08/18/2024 11:00 [...] Comment 08/18/2024 11:02 PM EDT [facility]ALTHCARE LAB Parts Washer ID Veronica Kellogg 025 11:02 PM EDT HEALTHCARE LAB Device ID [id number] 08/18/2024 11:02 PM EDT [facility]ALTH[facility]ARE LAB Specimen Type POC Capillary 08/18/2024 11:02 PM EDT [facility] Blood Capillary blood specimen / Unknown 08/18/2024 11:00 PM EDT 08/18/2024 11:02 PM EDT Kenneth James MD LAB POINT OF CARE TE ST DOCKED DEVICE UNSOLICITED RESULTS Final Result Performing Organization Address City/State/[facility] Co de Phone Number [facility] [address] [place] [address] * (ABNORMAL) POCT glucose meter (08/18/2024 7:39 PM EDT) [facility] POCT Glucose 430(H) 74 - 99 mg/dL [...] 08/18/2024 7:42 PM EDT [facility] Parts Washer ID Veronica Kellogg 025 7:42 PM EDT [facility] Device ID [id number] 08/18/2024 7:42 PM EDT [facility] Specimen Type POC Capillary 08/18/2024 7:42 PM EDT [facility] Blood Capillary blood specimen / Unknown 08/18/2024 7:39 PM EDT 08/18/2024 7:42 PM EDT Kenneth James MD LAB POINT OF CARE TE ST DOCKED DEVICE UNSOLICITED RESULTS Final Result Performing Organization Address City/[facility] Co de Phone Number [facility] [address] [place] [address] * (ABNORMAL) POCT glucose meter (08/18/2024 4:23 [...] Comment 08/18/2024 4:32 PM EDT HEALTHCARE LAB Parts Washer ID Partha Zhu 08/19/19 4:32 PM EDT HEALTHCARE LAB Device ID [id number] 08/18/2024 4:32 PM EDT [facility] Specimen Type POC Capillary 08/18/2024 4:32 PM EDT [facility] Blood Capillary blood specimen / Unknown 08/18/2024 4:23 PM EDT 08/18/2024 4:32 PM EDT Kenneth James MD LAB POINT OF CARE TE ST DOCKED DEVICE UNSOLICITED RESULTS Final Result Performing Organization Address City/[facility] Co de Phone Number [facility] [address] [place] [address] * RIGHT HEART CATHETERIZATION (08/18/2024 4:04 PM [...] then carried out using a 7.5F VIP Butner-Carter catheter. Pressures were recorded as the catheter [...] the patient was transferred back to the greens laborer holding area in good condition. Study [...] Saturations Phase: Resting Saturations PA: 61 % us Kenneth James MD CV CARDIAC CATH PROCEDURES Fin al Result * (ABNORMAL) POCT Co-Oximetry Mixed Venous (08/18/2024 3:52 PM EDT) [facility] POCT Oxyhemoglobin, Mixed Venous 60.8 % 08/18/2024 3:53 PM EDT HEALTHCARE LAB Parts Washer ID Ngozi Linares 08/18/2024 3:53 PM EDT HEALTHCARE LAB Device ID [id number] 08/18/2024 3:53 PM EDT [facility] POCT Sample Site PA 08/18/2024 3:53 PM EDT [facility] POCT Total Hemoglobin 9.7(L) 11.2 - 15.7 g/dL 08/18/2024 3:53 PM EDT [facility] 08/18/2024 3:52 PM EDT 08/18/2024 3:53 PM EDT Kenneth James MD LAB POINT OF CARE TE ST DOCKED DEVICE UNSOLICITED RESULTS Final Result [facility] [address] [place] [address] * (ABNORMAL) POCT CO-Oximitry, Venous (08/18/2024 3:50 PM EDT) Pathologist [facility] POCT OXYHEMOGLOBIN, VENOUS 65 40 - 70 % 08/18/2024 3:50 PM EDT [facility] Parts Washer ID Vijay, Ngozi 08/18/2024 3:50 PM EDT [facility] Device ID [id number] 08/18/2024 3:50 PM EDT [facility] POCT Sample Site -SELECT- 08/18/2024 3:50 PM EDT [facility] POCT Total Hemoglobin 9.7(L) 11.2 - 15.7 g/dL 08/18/2024 3:50 PM EDT HEALTHCARE LAB Venous blood specimen / Unknown 08/18/2024 3:50 PM EDT 08/18/2024 3:50 PM EDT us Kenneth James MD LAB POINT OF CARE TE ST DOCKED DEVICE UNSOLICITED RESULTS Final Result [facility] [address] [place] [address] * (ABNORMAL) POCT glucose meter (08/18/2024 11:26 [...] 08/18/2024 11:34 AM EDT [facility] Parts Washer ID Partha Zhu 08/19/19 11:34 AM EDT [facility] Device ID [id number] 08/18/2024 11:34 AM EDT [facility] Specimen Type POC Capillary 08/18/2024 11:34 AM EDT [facility]ALTH[facility] Blood Capillary blood specimen / Unknown 08/18/2024 11:26 AM EDT 08/18/2024 11:34 AM EDT Kenneth James MD LAB POINT OF CARE TE ST DOCKED DEVICE UNSOLICITED RESULTS Final Result Performing Organization Address City/State/[facility] Co de Phone Number [facility] [address] [place] [address] * (ABNORMAL) POCT glucose meter (08/18/2024 7:30 AM EDT) POCT Glucose 267(H) 74 - 99 mg/dL 08/18/2024 7:43 AM EDT HEALTHCARE LAB Comment:Accuracy of a [...] 08/18/2024 7:43 AM EDT [facility] Parts Washer ID Partha Zhu 08/19/19 7:43 AM EDT [facility] Device ID [id number] 08/18/2024 7:43 AM EDT [facility] Specimen Type POC Capillary 08/18/2024 7:43 AM EDT [facility] Blood Capillary blood specimen / Unknown 08/18/2024 7:30 AM EDT 08/18/2024 7:43 AM EDT Kenneth James MD LAB POINT OF CARE TE ST DOCKED DEVICE UNSOLICITED RESULTS Final Result [facility] [address] [place] [address] * XR Chest 1 View (08/18/2024 6:25 [...] MD on 08/18/2024 7:47 AM Boby Rouse ROENTGENOLOGY TEACHER IMG XR PROCEDURES Final Res ult * (ABNORMAL) POCT glucose meter (08/18/2024 3:08 AM EDT) POCT Glucose 169(H) 74 - 99 mg/dL 08/18/2024 3:10 AM EDT [facility] Comment:Accuracy of a glucos e result [...] Comment 08/18/2024 3:10 AM EDT HEALTHCARE LAB Parts Washer ID Veronica Kellogg 025 3:10 AM EDT HEALTHCARE LAB Device ID [id number] 08/18/2024 3:10 AM EDT [facility]ALTH[facility]ARE LAB Specimen Type POC Capillary 08/18/2024 3:10 AM EDT [facility] Blood Capillary blood specimen / Unknown 08/18/2024 3:08 AM EDT 08/18/2024 3:10 AM EDT us Kenneth James MD LAB POINT OF CARE TE ST DOCKED DEVICE UNSOLICITED RESULTS Final Result [facility] [address] [place] [address] * (ABNORMAL) POCT glucose meter (08/18/2024 1:52 AM EDT) [facility] POCT Glucose 168(H) 74 - 99 mg/dL [...] for testing. Comment 08/18/2024 1:54 AM EDT [facility] Parts Washer ID Becca Mittal 1:54 AM EDT HEALTHCARE LAB Device ID [id number] 08/18/2024 1:54 AM EDT HEALTHCARE LAB Specimen Type POC Capillary 08/18/2024 1:54 AM EDT [facility]ALTH[facility] Blood Capillary blood specimen / Unknown 08/18/2024 1:52 AM EDT 08/18/2024 1:54 AM EDT us Kenneth James MD LAB POINT OF CARE TE ST DOCKED DEVICE UNSOLICITED RESULTS Final Result Performing Organization Address City/[facility]/ZIP Co de Phone Number [facility] [address] [place] [address] * (ABNORMAL) Prothrombin Time/INR (08/18/2024 1:18 AM [...] INR 2.5 to 3.5 Prevention of recurrent [place] INR 2.5 to 3.5 us Kenneth James MD LAB BLOOD ORDERABLES Final Res ult Performing Organization Address [facility] Co de Phone Number [facility] [address] [place] [address] * Magnesium, Plasma (08/18/2024 1:18 AM EDT) Magnesium, Plasma 2.1 1.9 - 2.4 mg/dL 08/18/2024 2:07 AM EDT [facility] Blood Venous blood specimen / Unknown Venipuncture / Unknown 08/18/2024 1:18 AM EDT 08/18/2024 1:37 AM EDT us Kenneth James MD LAB BLOOD ORDERABLES Final Res ult Performing Organization Address City/[facility]/ZIP Co de Phone Number [facility] [address] [place] [address] * (ABNORMAL) Basic Metabolic Panel, Plasma (08/18/2024 [...] [facility] [address] [place] [address] * (ABNORMAL) POCT glucose meter (08/18/2024 12:56 AM EDT) [facility] POCT Glucose 58(L) 74 - 99 mg/dL [...] Comment 08/18/2024 12:57 AM EDT HEALTHCARE LAB Parts Washer ID Veronica Kellogg 025 12:57 AM EDT HEALTHCARE LAB Device ID [id number] 08/18/2024 12:57 AM EDT HEALTHCARE LAB Specimen Type POC Capillary 08/18/2024 12:57 AM EDT [facility]ALTH[facility] LAB Blood Capillary blood specimen / Unknown 08/18/2024 12:56 AM EDT 08/18/2024 12:57 AM EDT Kenneth James MD LAB POINT OF CARE TE ST DOCKED DEVICE UNSOLICITED RESULTS Final Result [facility] [address] [place] [address] * (ABNORMAL) POCT glucose meter (08/17/2024 8:34 PM EDT) [facility] POCT Glucose 344(H) 74 - 99 mg/dL [...] 08/17/2024 8:35 PM EDT [facility] Parts Washer ID Jacqui Kelloggh 025 8:35 PM EDT [facility] Device ID [id number] 08/17/2024 8:35 PM EDT [facility]ALTHCARE LAB Specimen Type POC Capillary 08/17/2024 8:35 PM EDT [facility]ALTH[facility] LAB Blood Capillary blood specimen / Unknown 08/17/2024 8:34 PM EDT 08/17/2024 8:35 PM EDT Kenneth James MD LAB POINT OF CARE TE ST DOCKED DEVICE UNSOLICITED RESULTS Final Result [facility] [address] [place] [address] * (ABNORMAL) POCT glucose meter (08/17/2024 6:23 PM EDT) POCT Glucose 216(H) 74 - 99 mg/dL [...] 08/17/2024 6:24 PM EDT [facility] Parts Washer ID Kimberly Hernadez 08/18/19 25 6:24 PM EDT HEALTHCARE LAB Device ID [id number] 08/17/2024 6:24 PM EDT HEALTH[facility]ARE LAB Specimen Type POC Capillary 08/17/2024 6:24 PM EDT [facility]ALTH[facility] LAB Blood Capillary blood specimen / Unknown 08/17/2024 6:23 PM EDT 08/17/2024 6:24 PM EDT Kenneth James MD LAB POINT OF CARE TE ST DOCKED DEVICE UNSOLICITED RESULTS Final Result [facility] [address] [place] [address] * (ABNORMAL) POCT glucose meter (08/17/2024 4:28 [...] 08/17/2024 4:39 PM EDT [facility] Parts Washer ID Partha Zhu 08/18/19 4:39 PM EDT [facility] Device ID [id number] 08/17/2024 4:39 PM EDT [facility] Specimen Type POC Capillary 08/17/2024 4:39 PM EDT [facility] Blood Capillary blood specimen / Unknown 08/17/2024 4:28 PM EDT 08/17/2024 4:39 PM EDT Kenneth James MD LAB POINT OF CARE TE ST DOCKED DEVICE UNSOLICITED RESULTS Final Result [facility] [address] [place] [address] * (ABNORMAL) POCT glucose meter (08/17/2024 11:43 AM EDT) [facility] POCT Glucose 415(H) 74 - 99 mg/dL [...] 08/17/2024 11:50 AM EDT [facility] Parts Washer ID Partha Zhu 08/18/19 11:50 AM EDT [facility] Device ID [id number] 08/17/2024 11:50 AM EDT [facility] Specimen Type POC Capillary 08/17/2024 11:50 AM EDT [facility] Blood Capillary blood specimen / Unknown 08/17/2024 11:43 AM EDT 08/17/2024 11:50 AM EDT Kenneth James MD LAB POINT OF CARE TE ST DOCKED DEVICE UNSOLICITED RESULTS Final Result [facility] [address] [place] [address] * XR Chest 1 View (08/17/2024 11:26 [...] MD on 08/17/2024 11:45 AM Boby Rouse ROENTGENOLOGY TEACHER IMG XR PROCEDURES Final Res ult * [...] [facility] [address] [place] [id number] * (ABNORMAL) Body Fluid Cell Count w/ Diff - Pleural Right (08/17/2024 10:58 AM EDT) Color, Body fluid [facility] HEMATOLOGY METHOD 08/17/2024 6:09 PM EDT [...] [facility] [address] [place] [address] * Chylomicron Electrophoresis (Reflex Only) (08/17/2024 10:57 AM EDT) Chylomicron Electrophoresis Billed 08/25/2024 6:56 PM EDT [facility] ([facility]) Fluid Pleural fluid specimen / Unknown 08/17/2024 10:57 AM EDT 08/17/2024 11:10 AM EDT Narrative [facility] ([facility]) - 08/25/2024 6:56 PM EDT Performed By: [facility] [address] [place] [address] Boat Puller: Austin Bernal MD, PhD CLIA Number: [id number] Boby Rouse APRN LAB REF LAB BLOOD AND FLUID ORD Final Result [facility] ([facility]) [address] [place] [address] * Amylase, Pleural Fluid (08/17/2024 10:57 AM [...] developed and its performance characteristics determined by [facility]. The [place].S. Food and Drug [...] upper reference limit for serum and a ucgzw-dl-jwlip amylase ratio greater than one. Note: Interpretive [...] ORD ERABLES Final Result Performing Organization Address City/[facility]/ZIP Co de Phone Number [facility] [address] [place] [address] * Cholesterol Fluid Battery (08/17/2024 10:57 AM EDT) CHOLESTEROL, FLUID 28 mg/dL 08/19/2024 1:48 PM EDT [facility] ([employer]) CHOLESTEROL FLUID SOURCE Pleural fluid 08/19/2024 1:48 PM EDT [facility] ([employer]) Pleural Fluid Structure of right pleural cavity / Unknown Non-blood Collection / Unknown 08/17/2024 10:57 AM EDT 08/17/2024 11:10 AM EDT Narrative [facility] ([employer]) - 08/19/2024 1:48 PM EDT INTERPRETIVE INFORMATION: Cholesterol, Body Fluid For information on body fluid reference ranges and/or interpretive guidance visit [email or web address]/bodyfluids/ This test was developed and its performance characteristics determined by [facility]. It has not been cleared or approved by the [place] Food and Drug Administration. This test was performed in a CLIA certified laboratory and is intended for clinical purposes. Performed By: [facility] [address] [place] [address] Boat Puller: Austin Bernal MD, PhD CLIA Number: [id number] Boby Rouse APRN LAB REF LAB BLOOD AND FLUID ORD Final Result Performing Organization Address [facility]/ZIP Co de Phone Number [facility] ([employer]) [address] [place] [address] * Adenosine Deaminase,Pleural Fluid (08/17/2024 10:57 AM EDT) ADA, Pleural Fluid 5 0 - 30 U/L 08/19/2024 3:10 PM EDT [facility] ([facility]) Pleural Fluid Structure of right pleural cavity / Unknown Non-blood Collection / Unknown 08/17/2024 10:57 AM EDT 08/17/2024 11:10 AM EDT Narrative JERRI CARDOZA) - 08/19/2024 3:10 PM EDT INTERPRETIVE INFORMATION:Adenosine Deaminase, Pleural Fluid This test was developed and its performance characteristics determined by [facility]. It has not been cleared or approved by the US Food and Drug Administration. This test was performed in a CLIA certified laboratory and is intended for clinical purposes. Performed By: [facility] [address] [place] [address] Boat Puller: Austin Bernal MD, PhD CLIA Number: [id number] Boby Rouse APRN LAB BODY FLUIDS AND STOOLS ORDERABLES Final Result [facility] ([facility]) [address] [place] [address] * (ABNORMAL) pH, pleural fluid (08/17/2024 10:57 [...] and its performance characteristics determined by the [facility]. Pleural pH is measured [...] perform high complexity clinical laboratory testing. Boby Maldonado Rouse YAMILET LAB BODY FLUIDS AND STOOLS ORDERABLES Final Result [facility] [address] [place] [address] * Triglycerides BF with RFLX to CHYLO (SO) (08/17/2024 10:57 AM EDT) Triglyceride, Fluid 27 mg/dL 08/25/2024 6:56 PM EDT [facility] ([employer]) Triglyceride Fluid Source Pleural fluid 08/25/2024 6:56 PM EDT [facility] ([employer]) Chylomicron Screen, Body Fluid Absent Absent 08/25/2024 6:56 PM EDT [facility] ([employer]) Fluid Pleural fluid specimen / Unknown 08/17/2024 10:57 AM EDT 08/17/2024 11:10 AM EDT Narrative [facility] - 08/25/2024 6:56 PM EDT INTERPRETIVE INFORMATION: Triglycerides, Fluid For information on body fluid reference ranges and/or interpretive guidance visit [email or web address]/bodyfluids/ This test was developed and its performance characteristics determined by [facility]. It has not been cleared or approved by the [place] Food and Drug Administration. This test was performed in a CLIA certified laboratory and is intended for clinical purposes. Chylomicrons were not detected. This appears to be a nonchylous fluid. INTERPRETIVE INFORMATION: Chylomicron Screen, Body Fluid This test was developed and its performance characteristics determined by [facility]. It has not been cleared or approved by the U.S. Food and Drug Administration. This test was performed in a CLIA-certified laboratory and is intended for clinical purposes. Performed By: [facility] [address] [place] [address] Boat Puller: Austin Bernal MD, PhD CLIA Number: [id number] us Boby Rouse APRN LAB REF LAB BLOOD AND FLUID ORD Final Result [facility] ([facility]) [address] [place] [address] * Cytology - Pleural Right (08/17/2024 10:57 AM EDT) Case Report Cytology Case: [id number] Authorizing Provider: Boby Rouse APRN Collected: 08/17/2024 1057 Ordering Location: [facility] H Inpatient Received: 08/17/2024 1347 Pathologist: [...] 08/17/2024 1:47 PM EDT us Boby Rouse ROENTGENOLOGY TEACHER LAB CYTOLOGY ORDERABLES Fin al Result [facility] [address] [place] [address] * Glucose - Pleural Right (08/17/2024 10:57 [...] STOOLS ORDERABLES Final Result Performing Organization Address [facility] [facility] Co de Phone Number [facility] [address] [place] [address] * Albumin - Pleural Right (08/17/2024 10:57 [...] developed and its performance characteristics determined by [facility]. The U.S. Food and Drug Administration has not approved or cleared this test; however, FDA clearance or approval is not currently required for clinical use. The results are not intended to be used as the sole means for clinical diagnosis or patient management decisions. us Boby Rouse APRN LAB BODY FLUIDS AND STOOLS ORDERABLES Final Result Performing Organization Address [facility] Co de Phone Number [facility] [address] [place] [address] * Lactate Dehydrogenase, Pleural Fluid - Right [...] the following criteria are present: (1) pleural cfiek-cy-txbxc protein ratio of >0.5, (2) pleural fzpyc-am-qgsav LDH ratio of >0.6, or (3) a pleural fluid LDH activity that is >2/3 the upper limit of a normal serum LDH activity. Light's criteria may misclassify ~25% of transudates as exudates in heart failure. These can be identified by calculating a uqugo-lh-rcgxuzi albumin gradient (>1.2 g/dL) and/or a xzawk-cg-rikju protein gradient (>3.1 g/dL). Boby Rouse APRN LAB BODY FLUIDS AND STOOLS ORDERABLES Final Result [facility] [address] [place] [address] * Total Protein, Pleural Fluid - Pleural [...] developed and its performance characteristics determined by [facility]. The U.S. Food and Drug Administration has not approved or cleared this test. However, FDA clearance or approval is not currently required for clinical use. The results are not intended to be used as the sole means for clinical diagnosis or patient management decisions. Boby Rouse APRN LAB BODY FLUIDS AND STOOLS ORDERABLES Final Result Performing Organization Address [facility] [place] [address] * Body Fluid Culture and Gram Stain - Pleural Right (08/17/2024 10:57 AM EDT) Pathologist [facility] Culture No growth at day 4 2024 [...] GENERAL ORDERABLES Final Result Performing Organization Address [facility] [place] [address] * (ABNORMAL) POCT glucose meter (08/17/2024 7:39 AM EDT) [facility] POCT Glucose 232(H) 74 - 99 mg/dL 08/17/2024 7:51 AM EDT [facility] Comment:Accuracy of a glucos e [...] Comment 08/17/2024 7:51 AM EDT HEALTHCARE LAB Parts Washer ID Linda Zhusofiya 08/18/19 7:51 AM EDT [facility] Device ID [id number] 08/17/2024 7:51 AM EDT [facility] Specimen Type POC Capillary 08/17/2024 7:51 AM EDT [facility] Blood Capillary blood specimen / Unknown 08/17/2024 7:39 AM EDT 08/17/2024 7:51 AM EDT us Kenneth James MD LAB POINT OF CARE TE ST DOCKED DEVICE UNSOLICITED RESULTS Final Result Performing Organization Address City/[facility] Co de Phone Number [facility] [address] [place] [address] * (ABNORMAL) Prothrombin Time/INR (08/17/2024 4:28 AM [...] INR 2.5 to 3.5 Prevention of recurrent [place] INR 2.5 to 3.5 us Kenneth James MD LAB BLOOD ORDERABLES Final Res ult Performing Organization Address City/[facility]/ZIP Co de Phone Number [facility] [address] [place] [address] * (ABNORMAL) CBC W/O Differential (08/17/2024 4:28 [...] [facility] [address] [place] [address] * (ABNORMAL) Magnesium (08/17/2024 4:28 AM EDT) Magnesium, Plasma 1.8(L) 1.9 - 2.4 mg/dL 08/17/2024 5:15 AM EDT [facility] Blood Venous blood specimen / Unknown Venipuncture / Unknown 08/17/2024 4:28 AM EDT 08/17/2024 4:42 AM EDT us Doron Thayer MD LAB BLOOD ORDERABLES Final Resu lt [facility] [address] [place] [address] * (ABNORMAL) Comprehensive metabolic panel (08/17/2024 4:28 [...] [facility] [address] [place] [address] * (ABNORMAL) Lactate dehydrogenase (08/17/2024 4:28 AM EDT) LDH, Plasma 322(H) 116 - 250 U/L 08/17/2024 5:15 AM EDT [facility] Blood Venous blood specimen / Unknown Venipuncture / Unknown 08/17/2024 4:28 AM EDT 08/17/2024 4:42 AM EDT us Boby Rouse APRN LAB BLOOD ORDERABLES Final Result [facility] [address] [place] [address] * (ABNORMAL) POCT glucose meter (08/16/2024 8:03 PM EDT) POCT Glucose 356(H) 74 - 99 mg/dL [...] 08/16/2024 8:05 PM EDT [facility] Parts Washer ID oJe Del Real 08/16/2024 8:05 PM EDT [facility] Device ID [id number] 08/16/2024 8:05 PM EDT HEALTHCARE LAB Specimen Type POC Capillary 08/16/2024 8:05 PM EDT [facility]ALTH[facility]ARE LAB Blood Capillary blood specimen / Unknown 08/16/2024 8:03 PM EDT 08/16/2024 8:05 PM EDT Doron Thayer MD LAB POINT OF CARE TE ST DOCKED DEVICE UNSOLICITED RESULTS Final Result [facility]ARE [facility] [address] [place] [address] * (ABNORMAL) POCT glucose meter (08/16/2024 4:12 PM EDT) [facility] POCT Glucose 173(H) 74 - 99 mg/dL [...] 08/16/2024 4:14 PM EDT [facility] Parts Washer ID Paula Wright 4:14 PM EDT HEALTHCARE LAB Device ID [id number] 08/16/2024 4:14 PM EDT HEALTHCARE LAB Specimen Type POC Capillary 08/16/2024 4:14 PM EDT [facility]ALTH[facility]ARE LAB Blood Capillary blood specimen / Unknown 08/16/2024 4:12 PM EDT 08/16/2024 4:14 PM EDT Doron Thayer MD LAB POINT OF CARE TE ST DOCKED DEVICE UNSOLICITED RESULTS Final Result Performing Organization Address [facility] de Phone Number [facility] [address] [place] [address] * (ABNORMAL) POCT glucose meter (08/16/2024 11:03 AM EDT) Pathologist [facility] POCT Glucose 217(H) 74 - 99 mg/dL [...] for testing. Comment 08/16/2024 11:05 AM EDT [facility] Parts Washer ID Alicia Licea 025 11:05 AM EDT [facility] Device ID [id number] 08/16/2024 11:05 AM EDT [facility] Specimen Type POC Capillary 08/16/2024 11:05 AM EDT [facility] Blood Capillary blood specimen / Unknown 08/16/2024 11:03 AM EDT 08/16/2024 11:05 AM EDT Doron Thayer MD LAB POINT OF CARE TE ST DOCKED DEVICE UNSOLICITED RESULTS Final Result Performing Organization Address City/[facility] de Phone Number HEALTHCARE LAB [address] [place] [address] * (ABNORMAL) POCT glucose meter (08/16/2024 7:44 AM EDT) Pathologist [facility] POCT Glucose 190(H) 74 - 99 mg/dL [...] Comment 08/16/2024 7:52 AM EDT HEALTHCARE LAB Parts Washer ID Paula Wright 7:52 AM EDT HEALTHCARE LAB Device ID [id number] 08/16/2024 7:52 AM EDT HEALTHCARE LAB Specimen Type POC Capillary 08/16/2024 7:52 AM EDT [facility] Blood Capillary blood specimen / Unknown 08/16/2024 7:44 AM EDT 08/16/2024 7:52 AM EDT us Doron Thayer MD LAB POINT OF CARE TE ST DOCKED DEVICE UNSOLICITED RESULTS Final Result Performing Organization Address [facility] Co de Phone Number [facility] [address] [place] [address] * (ABNORMAL) Prothrombin Time/INR (08/16/2024 1:46 AM EDT) [facility] Prothrombin Time 24.3(H) 12.0 - 14.3 sec [...] INR 2.5 to 3.5 Prevention of recurrent [place] INR 2.5 to 3.5 us Kenneth James MD LAB BLOOD ORDERABLES Final Res ult [facility] [address] [place] [address] * (ABNORMAL) CBC W/O Differential (08/16/2024 1:46 [...] [facility] [address] [place] [address] * (ABNORMAL) Magnesium (08/16/2024 1:46 AM EDT) Pathologist [facility] Magnesium, Plasma 1.5(L) 1.9 - 2.4 mg/dL 08/16/2024 2:28 AM EDT [facility] Blood Venous blood specimen / Unknown Venipuncture / Unknown 08/16/2024 1:46 AM EDT 08/16/2024 1:57 AM EDT us Doron Thayer MD LAB BLOOD ORDERABLES Final Resu lt [facility] [address] [place] [address] * (ABNORMAL) Basic metabolic panel (08/16/2024 1:46 AM EDT) Pathologist [facility] Glucose, Plasma 271(H) 74 - 99 mg/dL [...] ORDERABLES Final Resu lt Performing Organization Address City/[facility]/ZIP Co de Phone Number [facility] [address] [place] [address] * (ABNORMAL) POCT glucose meter (08/15/2024 9:37 [...] Comment 08/15/2024 9:38 PM EDT HEALTHCARE LAB Parts Washer ID Laura Cope 08/15/2024 9:38 PM EDT HEALTHCARE LAB Device ID [id number] 08/15/2024 9:38 PM EDT [facility]ALTH[facility]ARE LAB Specimen Type POC Capillary 08/15/2024 9:38 PM EDT [facility]ALTH[facility]ARE LAB Blood Capillary blood specimen / Unknown 08/15/2024 9:37 PM EDT 08/15/2024 9:38 PM EDT us Doron Thayer MD LAB POINT OF CARE TE ST DOCKED DEVICE UNSOLICITED RESULTS Final Result Performing Organization Address City/[facility]/ZIP Co de Phone Number [facility]ALTHCARE LAB [address] [place] [address] * (ABNORMAL) POCT glucose meter (08/15/2024 6:03 PM EDT) [facility] POCT Glucose 184(H) 74 - 99 mg/dL [...] Comment 08/15/2024 6:06 PM EDT [facility]ALTHCARE LAB Parts Washer ID Hoda Skinner 025 6:06 PM EDT HEALTHCARE LAB Device ID [id number] 08/15/2024 6:06 PM EDT HEALTHCARE LAB Specimen Type POC Capillary 08/15/2024 6:06 PM EDT [facility]ARE LAB Blood Capillary blood specimen / Unknown 08/15/2024 6:03 PM EDT 08/15/2024 6:06 PM EDT Arben Ibarra MD LAB POINT OF CARE TE ST DOCKED DEVICE UNSOLICITED RESULTS Final Result Performing Organization Address City/State/[facility] Co de Phone Number HEALTHCARE LAB [address] [place] [address] * (ABNORMAL) POCT glucose meter (08/15/2024 4:20 PM EDT) [facility] POCT Glucose 204(H) 74 - 99 mg/dL [...] 08/15/2024 4:26 PM EDT [facility] Parts Washer ID Hoda Skinner 025 4:26 PM EDT [facility] Device ID [id number] 08/15/2024 4:26 PM EDT [facility] Specimen Type POC Capillary 08/15/2024 4:26 PM EDT [facility]ALTH[facility]ARE LAB Blood Capillary blood specimen / Unknown 08/15/2024 4:20 PM EDT 08/15/2024 4:26 PM EDT Arben Ibarra MD LAB POINT OF CARE TE ST DOCKED DEVICE UNSOLICITED RESULTS Final Result Performing Organization Address City/[facility] Co de Phone Number [facility] [address] [place] [address] * (ABNORMAL) POCT glucose meter (08/15/2024 1:00 [...] Comment 08/15/2024 1:02 PM EDT HEALTHCARE LAB Parts Washer ID Hoda Skinner 025 1:02 PM EDT HEALTHCARE LAB Device ID [id number] 08/15/2024 1:02 PM EDT HEALTHCARE LAB Specimen Type POC Capillary 08/15/2024 1:02 PM EDT [facility] Blood Capillary blood specimen / Unknown 08/15/2024 1:00 PM EDT 08/15/2024 1:02 PM EDT Arben Ibarra MD LAB POINT OF CARE TE ST DOCKED DEVICE UNSOLICITED RESULTS Final Result Performing Organization Address City/[facility]/ZIP Co de Phone Number [facility] [address] [place] [address] * (ABNORMAL) POCT glucose meter (08/15/2024 12:14 PM EDT) POCT Glucose 123(H) 74 - [...] Comment 08/15/2024 12:20 PM EDT HEALTHCARE LAB Parts Washer ID Hoda Skinner 025 12:20 PM EDT HEALTHCARE LAB Device ID [id number] 08/15/2024 12:20 PM EDT HEALTHCARE LAB Specimen Type POC Capillary 08/15/2024 12:20 PM EDT [facility]ALTH[facility]ARE LAB Blood Capillary blood specimen / Unknown 08/15/2024 12:14 PM EDT 08/15/2024 12:20 PM EDT Arben Ibarra MD LAB POINT OF CARE TE ST DOCKED DEVICE UNSOLICITED RESULTS Final Result Performing Organization Address City/State/[facility] Co de Phone Number HEALTHCARE LAB [address] [place] [address] * XR Chest 1 View (08/15/2024 9:22 [...] QTC Interval 546 ms MUSE ECG R Poth -70 degrees MUSE ECG T Wave Poth 119 degrees MUSE ECG Diagnosis Ventricular-pa amber [...] glucose meter (08/15/2024 7:52 AM EDT) Pathologist [facility] POCT Glucose 175(H) 74 - 99 mg/dL [...] 08/15/2024 7:56 AM EDT [facility] Parts Washer ID Hoda Skinner 025 7:56 AM EDT [facility] Device ID [id number] 08/15/2024 7:56 AM EDT HEALTHCARE LAB Specimen Type POC Capillary 08/15/2024 7:56 AM EDT HEALTHCARE LAB Blood Capillary blood specimen / Unknown 08/15/2024 7:52 AM EDT 08/15/2024 7:56 AM EDT Arben Ibarra MD LAB POINT OF CARE TE ST DOCKED DEVICE UNSOLICITED RESULTS Final Result Performing Organization Address City/[facility] Co de Phone Number [facility] [address] [place] [address] * (ABNORMAL) POCT glucose meter (08/15/2024 6:27 AM EDT) [facility] POCT Glucose 125(H) 74 - 99 mg/dL [...] for testing. Comment 08/15/2024 6:29 AM EDT [facility] Parts Washer ID Manuel Tabares 08/15/2024 6:29 AM EDT HEALTHCARE LAB Device ID [id number] 08/15/2024 6:29 AM EDT HEALTHCARE LAB Specimen Type POC Capillary 08/15/2024 6:29 AM EDT HEALTHCARE LAB Blood Capillary blood specimen / Unknown 08/15/2024 6:27 AM EDT 08/15/2024 6:29 AM EDT Arben Ibarra MD LAB POINT OF CARE TE ST DOCKED DEVICE UNSOLICITED RESULTS Final Result Performing Organization Address City/[facility] Co de Phone Number [facility] [address] [place] [address] * POCT glucose meter (08/15/2024 6:07 AM EDT) Pathologist [facility] POCT Glucose 95 74 - 99 mg/dL [...] for testing. Comment 08/15/2024 6:08 AM EDT [facility] Parts Washer ID Manuel Tabares 08/15/2024 6:08 AM EDT [facility] Device ID [id number] 08/15/2024 6:08 AM EDT HEALTHCARE LAB Specimen Type POC Capillary 08/15/2024 6:08 AM EDT HEALTHCARE LAB Blood Capillary blood specimen / Unknown 08/15/2024 6:07 AM EDT 08/15/2024 6:08 AM EDT Arben Ibarra MD LAB POINT OF CARE TE ST DOCKED DEVICE UNSOLICITED RESULTS Final Result Performing Organization Address City/State/[facility] Co de Phone Number [facility] [address] [place] [address] * (ABNORMAL) POCT glucose meter (08/15/2024 5:46 AM EDT) [facility] POCT Glucose 48(LL) 74 - 99 mg/dL [...] for testing. Comment 08/15/2024 5:48 AM EDT [facility] Parts Washer ID Manuel Tabares 08/15/2024 5:48 AM EDT [facility] Device ID [id number] 08/15/2024 5:48 AM EDT [facility] Specimen Type POC Capillary 08/15/2024 5:48 AM EDT [facility] Blood Capillary blood specimen / Unknown 08/15/2024 5:46 AM EDT 08/15/2024 5:48 AM EDT Arben Ibarra MD LAB POINT OF CARE TE ST DOCKED DEVICE UNSOLICITED RESULTS Final Result Performing Organization Address [facility] de Phone Number [facility] [address] [place] [address] * (ABNORMAL) POCT glucose meter (08/15/2024 5:25 [...] Comment 08/15/2024 5:26 AM EDT HEALTHCARE LAB Parts Washer ID Manuel Tabares 08/15/2024 5:26 AM EDT [facility] Device ID [id number] 08/15/2024 5:26 AM EDT [facility] Specimen Type POC Capillary 08/15/2024 5:26 AM EDT [facility] Blood Capillary blood specimen / Unknown 08/15/2024 5:25 AM EDT 08/15/2024 5:26 AM EDT Arben Ibarra MD LAB POINT OF CARE TE ST DOCKED DEVICE UNSOLICITED RESULTS Final Result Performing Organization Address City/[facility] de Phone Number HEALTHCARE LAB [address] [place] [address] * (ABNORMAL) Blood gas panel, arterial (08/15/2024 [...] 5:01 AM EDT 08/15/2024 5:13 AM EDT July Vargas MD LAB BLOOD ORDERABLES Final R esult [facility] [address] [place] [address] * (ABNORMAL) Prothrombin Time/INR (08/15/2024 4:52 AM EDT) Prothrombin Time 24.4(H) 12.0 - 14.3 sec 08/15/2024 5:08 AM EDT [facility] INR 2.2(H) 0.9 - 1.1 08/15/2024 5:[address] [facility] Blood Venous blood specimen / Unknown [...] INR 2.5 to 3.5 Prevention of recurrent NC INR 2.5 to 3.5 us Kenneth James MD LAB BLOOD ORDERABLES Final Res ult [facility] [address] [place] [address] * Vitamin D 25 Hydroxy (08/15/2024 4:52 AM EDT) Pathologist [facility] Vitamin D 25 Hydroxy 51.5 20.0 - 80.0 ng/mL 08/15/2024 6:[address] [facility] Blood Venous blood specimen / Unknown Venipuncture / Unknown 08/15/2024 4:52 AM EDT 08/15/2024 4:59 AM EDT [facility] - 08/15/2024 6:37 AM EDT Testing performed on Blank Transit Clerk, standardized against NIST SRM [id number]. When testing [...] ORDERABLES Final Re sult Performing Organization Address [facility] [place] [address] * (ABNORMAL) N-Terminal Probnp, Plasma (08/15/2024 4:52 AM EDT) N-Terminal, PROBNP, Plasma 6,053(H) 0 - 899 pg/mL 08/15/2024 5:32 AM EDT [facility] Blood Venous blood specimen / Unknown Venipuncture / Unknown 08/15/2024 4:52 AM EDT 08/15/2024 4:59 AM EDT Arben Ibarra MD LAB BLOOD ORDERABLES Final Re sult Performing Organization Address [facility] [place] [address] * Phosphorus (08/15/2024 4:52 AM EDT) Phosphorus, Plasma 3.2 2.5 - 4.5 mg/dL 08/15/2024 5:32 AM EDT [facility] Blood Venous blood specimen / Unknown Venipuncture / Unknown 08/15/2024 4:52 AM EDT 08/15/2024 4:59 AM EDT Arben Ibarra MD LAB BLOOD ORDERABLES Final Re sult Performing Organization Address [facility] Co de Phone Number [facility] [address] [place] [address] * Magnesium (08/15/2024 4:52 AM EDT) Magnesium, Plasma 1.9 1.9 - 2.4 mg/dL 08/15/2024 5:32 AM EDT [facility] Blood Venous blood specimen / Unknown Venipuncture / Unknown 08/15/2024 4:52 AM EDT 08/15/2024 4:59 AM EDT us Arben Ibarra MD LAB BLOOD ORDERABLES Final Re sult [facility] [address] [place] [address] * (ABNORMAL) Basic metabolic panel (08/15/2024 4:52 [...] [facility] [address] [place] [address] * (ABNORMAL) CBC W/O Differential (08/15/2024 4:52 [...] ORDERABLES Final Re sult Performing Organization Address City/[facility]/ZIP Co de Phone Number [facility] [address] [place] [address] * (ABNORMAL) POCT glucose meter (08/14/2024 8:54 [...] for testing. Comment 08/14/2024 8:56 PM EDT [facility] Parts Washer ID Manuel Tabares 08/14/2024 8:56 PM EDT HEALTHCARE LAB Device ID [id number] 08/14/2024 8:56 PM EDT [facility] Specimen Type POC Capillary 08/14/2024 8:56 PM EDT [facility] Blood Capillary blood specimen / Unknown 08/14/2024 8:54 PM EDT 08/14/2024 8:56 PM EDT Arben Ibarra MD LAB POINT OF CARE TE ST DOCKED DEVICE UNSOLICITED RESULTS Final Result Performing Organization Address City/[facility] Co de Phone Number HEALTHCARE LAB [address] [place] [address] * (ABNORMAL) POCT glucose meter (08/14/2024 6:43 PM EDT) Pathologist [facility] POCT Glucose 218(H) 74 - 99 mg/dL [...] Comment 08/14/2024 6:45 PM EDT HEALTHCARE LAB Parts Washer ID Renee Barrett 025 6:45 PM EDT HEALTHCARE LAB Device ID [id number] 08/14/2024 6:45 PM EDT HEALTHCARE LAB Specimen Type POC Capillary 08/14/2024 6:45 PM EDT [facility] Blood Capillary blood specimen / Unknown 08/14/2024 6:43 PM EDT 08/14/2024 6:45 PM EDT Arben Ibarra MD LAB POINT OF CARE TE ST DOCKED DEVICE UNSOLICITED RESULTS Final Result Performing Organization Address City/[facility]/ZIP Co de Phone Number [facility] [address] [place] [address] * (ABNORMAL) Protime-INR (08/14/2024 6:08 PM EDT) [...] INR 2.5 to 3.5 Prevention of recurrent [place] INR 2.5 to 3.5 us Arben Ibarra MD LAB BLOOD ORDERABLES Final Re sult [facility] [address] [place] [address] * (ABNORMAL) Hemoglobin A1c (08/14/2024 6:08 PM [...] Adults <6.0% Children and Adolescents <7.5% Source: [place] [employer]. Standards of medical care in diabetes,2017. Diabetes Care.2017:40 (suppl 1):S1-S135. us Arben Ibarra MD LAB BLOOD ORDERABLES Final Re sult [facility] [address] [place] [address] * XR Chest 1 View (08/14/2024 3:52 [...] signing this report, I, the attending physician, [email or web address] I have personally reviewed the images/data for the aboveexamination(s) and agree with the final edited report. Drafted by Sasha Cruz MD on 08/14/2024 3:55 PM Final report signed by Paola Polanco MD on 08/14/2024 3:59 PM Jackson Puente MD IMG XR PROCEDURES Final Result * (ABNORMAL) BNP (08/14/2024 2:55 PM EDT) [facility] N-Terminal, PROBNP, Plasma 6,763(H) 0 - 899 pg/mL 08/14/2024 3:43 PM EDT [facility] Blood Venous blood specimen / Unknown Venipuncture / Unknown 08/14/2024 2:55 PM EDT 08/14/2024 2:58 PM EDT Jackson Puente MD LAB BLOOD ORDERABLES Fi nal Result [facility] [address] [place] [address] * (ABNORMAL) CBC w/diff (08/14/2024 2:55 PM EDT) [facility] WBC Count 6.61 3.70 - 10.30 [...] [facility] [address] [place] [address] * (ABNORMAL) Troponin now and 120 min (08/14/2024 2:55 PM EDT) Troponin T, High Sensitivity, 0 Hour 29(H) <14 ng/L 08/14/2024 3:43 PM EDT [facility] Blood Venous blood specimen / Unknown Venipuncture / Unknown 08/14/2024 2:55 PM EDT 08/14/2024 2:58 PM EDT Jackson Puente MD LAB BLOOD ORDERABLES Fi nal Result Performing Organization Address City/[facility]/ZIP Co de Phone Number [facility] [address] [place] [address] * (ABNORMAL) Magnesium (08/14/2024 2:55 PM EDT) Magnesium, Plasma 1.6(L) 1.9 - 2.4 mg/dL 08/14/2024 3:43 PM EDT [facility] Blood Venous blood specimen / Unknown Venipuncture / Unknown 08/14/2024 2:55 PM EDT 08/14/2024 2:58 PM EDT Jackson Puente MD LAB BLOOD ORDERABLES Fi nal Result Performing Organization Address [facility] Co de Phone Number [facility] [address] [place] [address] * (ABNORMAL) CMP (08/14/2024 2:55 PM EDT) [...] [facility] [address] [place] [address] * EKG now - STAT (adult) (08/14/2024 2:31 PM EDT) EKG DIAGNOSIS CLASS Abnormal MUSE ECG Ventricular Rate 60 BPM MUSE ECG Atrial Rate 28 BPM MUSE ECG QRSD Interval 192 ms MUSE ECG QT Interval 554 ms MUSE ECG QTC Interval 554 ms MUSE ECG P Poth 48 degrees MUSE ECG R Poth -66 degrees MUSE ECG T Wave Poth 114 degrees MUSE ECG Diagnosis Ventricular-pa amber rhythm MUSE ECG Diagnosis Abnormal ECG MUSE ECG Diagnosis MUSE ECG Diagnosis Compared to last ECG MUSE ECG Diagnosis No significant change was found MUSE ECG Diagnosis Confirmed by Cristian Irwin ([id number]) on 08/15/2024 10:41:50 AM MUSE ECG 08/14/2024 [...] Fri08/24/24 at 1345, Until Discontinued, Routine Tiotropium Norton Monohydrate (Spiriva Respimat) 2.5 MCG/ACT inhaler 2 [...] on Fri08/15/24 at 0900, Until Discontinued, Routine 0930 (Given - Provider: [...] 06 (Given - Provider: Puja Le RN) 522 (Given - Provider: Jennifer Carroll RN) enoxaparin [...] Until Discontinued, Routine 0930 (Given - Provider: Kosat Dugan RN)2116 (Given - Provider: Puja Le [...] RN)2117 (Given - Provider: Puja Le RN) 0853 [...] RN - Comment: order parameters not met) 030 (Canceled Entry - Provider: Jennifer Carroll RN - Comment: order parameters not met) Insulin Lispro (Admelog, HumaLOG) 100 UNIT/ML injection 4 Units 4 Units, Subcutaneous, 3 times daily with meals, First dose (after last modification) on 08/21/24 at 1730, Until Discontinued, Routine 0929 (Given - Provider: Kosta uDgan RN)1135 (Given - Provider: Kosta Dugan RN)1633 (Not Given - Provider: Kosta Dugan RN - Reason: Order parameters not met - Comment: BG 78) 0852 (Given - Provider: Marilee Fabian RN)1230 (Given - Provider: Marilee Fabian RN)1647 (Given - Provider: Marilee Fabian RN) 0811 (Given - Provider: Kosta Dugan, EVITA)1302 (Given - Provider: Kosta Dugan, EVITA) latanoprost [...] Le, EVITA) 0523 (Given - Provider: Jennifer Carroll RN) [...] dose on Fri08/16/24 at 2100, Until Discontinued 0929 (Not Given - Provider: Kosta Dugan RN - Reason: Patient/family refused - Comment: Pt. stated she doesnt take them in the morning.)2129 (Given - Provider: Puja Le, EVITA) 09 (Given - Provider: Marilee Fabian, RN)2013 (Given - Provider: Jennifer Carroll, RN) 0816 (Not Given - Provider: Kosta Dugan RN - Reason: Patient/family refused) mycophenolate (Cellcept) capsule 1,000 mg 1,000 mg, Oral, 2 times daily, First dose on Fri08/16/24 at 1145, Until Discontinued, Routine 0930 (Given - Provider: Kosta Dugan RN)2116 (Given - Provider: Puja Le RN) 08 (Given - Provider: Marilee Fabian, EVITA)2007 (Given [...] Le RN) 0854 (Given - Provider: Marilee Fabian, EVITA)2008 (Given - Provider: Jennifer Carroll, EVITA) 0811 (Given - Provider: Kosta Dugan, EVITA) spironolactone (Aldactone) tablet 12.5 mg 12.5 mg, Oral, Daily, First dose on Fri08/24/24 at 1345, Until Discontinued, Routine 1434 (Not Given - Provider: Kosta Dugan, EVITA - Reason: Patient/family refused) Tiotropium Norton Monohydrate (Spiriva Respimat) 2.5 MCG/ACT inhaler 2 [...] 2334, Until Fri08/24/24 at 1720, Routine, sleep 211 (Given - Provider: Puja Le, EVITA) 2007 [...] care Linked Groups Order Group 1: Tiotropium Norton Monohydrate (Spiriva Respimat) 2.5 MCG/ACT inhaler 2 [...] documented as of this encounter Care Teams Data Warehouse Developer Relationship Specialty Start Date End Date Alisa Kunz DO [address] [place] [address] PCP - General Internal Medicine 03/13/21 Kodi Bustos DO [address] [phone] Surgeon Cardiothoracic Surgery 11/06/22 Sujit Arriola MD [address] [place] [address] Consulting Physician Pulmonary Disease 11/06/22 Sujit Reyes MD [address] [place] [id number] Referring Physician 12/04/22 documented as of this encounter
--- OUTSIDE RECORDS SUMMARY | 2024-08-30 13:01 | XMS_ITS | Data Portability ---
Author Organization [facility] & NICOLE Danielson ADMIN Address [address] [place] [id number] Care Team Providers Care Furnace Filler Name Role Phone BRUCE SIEGEL Primary Care Provider Assessment No assessment recorded. Plan of Treatment Reminders Order Date Submit Date Provider Last Modified By Organization Details Last Modified Time Details Appointments None recorded. Lab CBC w/ auto diff 2023 024 [facility], [address] [facility], [place], [address], 4 14:01:33 CMP, serum or plasma 2023 024 [facility], [address] [facility], [place], [address], 4 14:52:48 factor V mutation, blood or tissue 2023 024 [facility], [address] , [place], [address], 4 13:09:38 prothrombin (factor II) [id number] mutation, blood 2023 024 [email or web address] 6 [facility], [address] , [place], [address], 4 15:45:23 factor VIII activity, plasma 2023 024 [email or web address] 6 [facility], [address] , [place], [address], 4 08:47:49 antithrombi n activity, plasma 2023 024 NICK [facility], [address] [facility], [place], [address], 4 15:12:08 lupus anticoagula nt, plasma 2023 024 [email or web address] 6 [facility], [address] [facility], [place], [address], 4 08:47:49 anticardiol ipin igg+igm Ab, serum 2023 024 [email or web address] 6 [facility], [address] [facility], [place], [address], 4 08:47:49 protein C + protein S, functional panel, plasma 2023 024 [email or web address] [facility], [address] [place], [address], 4 08:47:50 beta-2 glycoprotei n 1 iga+igg+igm Ab, serum 2023 024 [email or web address] 6 [facility], [address] [place], [address], 4 08:47:50 Referral coumadin clinic referral 2023 024 [facility], [address] [place], [address], 5 09:13:21 home health referral [address], [address], [address]ior[address], [place], [address], 4 09:00:29 Procedures None recorded. Surgeries None recorded. Imaging None recorded. Medication Orders None recorded. Patient TargetsNo targets recorded. Patient InstructionsNo instructions recorded. Reason for Referral Home Health Referral for Dif ficulty managing medication Referring Physician: Yue Brown, Hematology/Oncology, Encounter Date: 02/09/2024 Referring Physician: Yue Brown Hematology/Oncology, Encounter Date: 02/09/2024 Results Created Date Observation Date Name Description Value Unit Range Abnormal Flag Note LastModifiedBy Organization Detail LastModifiedTime 02/09/20 24 02/09/2024 CBC AUTO W DIFF WBC 7.9 K/uL 4.0-10 .5 Not Available [facility] ([facility]) [address] , [place], [address], 02/09/2024 14:01:33 02/09/20 24 02/09/2024 CBC AUTO W DIFF RBC 3.2 M/mm3 4.2-6. 4 low Not Available [facility] ([facility]) [address] , [place], [address], 02/09/2024 14:01:33 02/09/20 24 02/09/2024 CBC AUTO W DIFF HGB 9.8 gm/dL 12.5-1 6.0 low Not Available [facility] ([facility]) [address] , [place], [address], 02/09/2024 14:01:33 02/09/20 24 02/09/2024 CBC AUTO W DIFF HCT 31.5 % 37.0-4 7.0 low Not Available [facility] ([facility]) [address] , [place], [address], 02/09/2024 14:01:33 02/09/20 24 02/09/2024 CBC AUTO W DIFF MCV 98.4 fL 78-100 Not Available [facility] ([facility]) [address] , [place], [address], 02/09/2024 14:01:33 02/09/20 24 02/09/2024 CBC AUTO W DIFF MCH 30.6 pg 27-31 Not Available [facility] ([facility]) [address] , [place], [address], 02/09/2024 14:01:33 02/09/20 24 02/09/2024 CBC AUTO W DIFF MCHC 31.1 g/dL 32-36 low Not Available [facility] ([facility]) [address], [place], [address], 02/09/2024 14:01:33 02/09/20 24 02/09/2024 CBC AUTO W DIFF RDW 13.0 % 11.5-1 4.0 Not Available [facility] ([facility]) [address], [place], [address], 02/09/2024 14:01:33 02/09/20 24 02/09/2024 CBC AUTO W DIFF platelet count 349 K/uL 150-45 0 Not Available [facility] ([facility]) [address], [place], [address], 02/09/2024 14:01:33 02/09/20 24 02/09/2024 CBC AUTO W DIFF MPV 9.8 fL 6-9.5 high Not Available [facility] ([facility]) [address], [place], [address], 02/09/2024 14:01:33 02/09/20 24 02/09/2024 CBC AUTO W DIFF neutrophil% 80.6 % 43-65 high Not Available [facility] ([facility]) [address], [place], [address], 02/09/2024 14:01:33 02/09/20 24 02/09/2024 CBC AUTO W DIFF lymphocyte% 8.1 % 20.5-4 5.5 low Not Available [facility] ([facility]) [address], [place], [address], 02/09/2024 14:01:33 02/09/20 24 02/09/2024 CBC AUTO W DIFF monocyte% 8.1 % 5.5-11 .7 Not Available [facility] ([facility]) [address] , [place], [address], 02/09/2024 14:01:33 02/09/20 24 02/09/2024 CBC AUTO W DIFF eosinophil% 1.5 % 0.9-2. 9 Not Available [facility] ([facility]) [address], [place], [address], 02/09/2024 14:01:33 02/09/20 24 02/09/2024 CBC AUTO W DIFF basophil% 0.4 % 0.2-1. 0 Not Available [facility] ([facility]) [address], [place], [address], 02/09/2024 14:01:33 02/09/20 24 02/09/2024 CBC AUTO W DIFF immature granulocytes % 1.3 % 0.0-0. 8 high Not Available [facility] ([facility]) [address], [place], [address], 02/09/2024 14:01:33 02/09/20 24 02/09/2024 CBC AUTO W DIFF nucleated red blood cells % 0.0 % Not Available [facility] ([facility]) [address], [place], [address], 02/09/2024 14:01:33 02/09/20 24 02/09/2024 CBC AUTO W DIFF neutrophil# 6.3 K/uL 2.2-4. 8 high Not Available [facility] ([facility]) [address] [place], [address], 02/09/2024 14:01:33 02/09/20 24 02/09/2024 CBC AUTO W DIFF lymphocyte# 0.6 cell/ mcL 1.3-2. 9 low Not Available [facility] ([facility]) [address], [place], [address], 02/09/2024 14:01:33 02/09/20 24 02/09/2024 CBC AUTO W DIFF monocyte# 0.6 cell/ mcL 0.3-0. 8 Not Available [facility] ([facility]) [address] , [place], [address], 02/09/2024 14:01:33 02/09/20 24 02/09/2024 CBC AUTO W DIFF eosinophil# 0.1 cell/ mcL 0-0.2 Not Available [facility] ([facility]) [address] , [place], [address], 02/09/2024 14:01:33 02/09/20 24 02/09/2024 CBC AUTO W DIFF basophil# 0.0 cell/ mcL 0.0-1. 0 Not Available [facility] ([facility]) [address], [place], [address], 02/09/2024 14:01:33 02/09/20 24 02/09/2024 CBC AUTO W DIFF immature gramulocytes # 0.10 K/uL Not Available [facility] ([facility]) [address], [place], [address], 02/09/2024 14:01:33 02/09/20 24 02/09/2024 CBC AUTO W DIFF nucleated red blood cells # 0.00 K/uL Not Available [facility] ([facility]) [address], [place], [address], 02/09/2024 14:01:33 02/09/20 24 02/09/2024 CBC AUTO W DIFF manual differential NO Not Available [facility] ([facility]) [address] , [place], [address], 02/09/2024 14:01:33 02/09/20 24 02/09/2024 COMP METAB OLIC PANEL sodium 136 mmol/ L 136-14 5 Not Available [facility] ([facility]) [address] , [place], [address], 02/09/2024 14:52:48 02/09/20 24 02/09/2024 COMP METAB OLIC PANEL potassium 4.5 mmol/ L 3.6-5. 0 Not Available [facility] ([facility]) [address] , [place], [address], 02/09/2024 14:52:48 02/09/20 24 02/09/2024 COMP METAB OLIC PANEL chloride 99 mmol/ L 98-107 Not Available [facility] ([facility]) [address] , [place], [address], 02/09/2024 14:52:48 02/09/20 24 02/09/2024 COMP METAB OLIC PANEL carbon dioxide 30.7 mmol/ L 21.0-3 2.0 Not Available [facility] ([facility]) [address] , [place], [address], 02/09/2024 14:52:48 02/09/20 24 02/09/2024 COMP METAB OLIC PANEL anion gap 10.8 Not Available [facility] ([facility]) [address] , [place], [address], 02/09/2024 14:52:48 02/09/20 24 02/09/2024 COMP METAB OLIC PANEL glucose 339 mg/dL 70-120 high Not Available [facility] ([facility]) [address] [place], [address], 02/09/2024 14:52:48 02/09/20 24 02/09/2024 COMP METAB OLIC PANEL BUN 19 mg/dL 7-18 high Not Available [facility] ([facility]) [address] [place], [address], 02/09/2024 14:52:48 02/09/20 24 02/09/2024 COMP METAB OLIC PANEL creatinine 1.0 mg/dL 0.6-1. 3 Not Available [facility] ([facility]) [address] , [place], [address], 02/09/2024 14:52:48 02/09/20 24 02/09/2024 COMP METAB OLIC PANEL glomerular filtration rate 59 mlper min 60- low GFR LIMIT ATION : The eGFR equat ion CKD-E PI 2020 is not appli cable for pedia tric patie nts or great er than 90 years of age. The follo wing condi tions may alter the GFR resul t: extre mes in body size, malnu triti on or obesi ty, skele caitlyn muscl e disea se, parap legia or quadr ipleg ia, veget tami diet or rapid ly griffiths ing kiney funct ion. Not Available [facility] ([facility]) [address] , [place], [address], 02/09/2024 14:52:48 02/09/20 24 02/09/2024 COMP METAB OLIC PANEL total protein 6.8 g/dL 6.4-8. 2 Not Available [facility] ([facility]) [address] , [place], [address], 02/09/2024 14:52:48 02/09/20 24 02/09/2024 COMP METAB OLIC PANEL albumin 2.8 g/dL 3.4-5. 0 low Not Available [facility] ([facility]) [address] , [place], [address], 02/09/2024 14:52:48 02/09/20 24 02/09/2024 COMP METAB OLIC PANEL globulin 4.0 Not Available [facility] ([facility]) [address] , [place], [address], 02/09/2024 14:52:48 02/09/20 24 02/09/2024 COMP METAB OLIC PANEL alb/glob ratio 0.7 0.7-2 Not Available [facility] ([facility]) [address], [place], [address], 02/09/2024 14:52:48 02/09/20 24 02/09/2024 COMP METAB OLIC PANEL calcium 8.3 mg/dL 8.5-10 .5 low Not Available [facility] ([facility]) [address] [facility], [place], [address], 02/09/2024 14:52:48 02/09/20 24 02/09/2024 COMP METAB OLIC PANEL bilirubin total 0.30 mg/dL 0.10-1 .00 Not Available [facility] ([facility]) [address] [facility], [place], [address], 02/09/2024 14:52:48 02/09/20 24 02/09/2024 COMP METAB OLIC PANEL AST (SGOT) 28 U/L 0-37 Not Available [facility] ([facility]) [address], [place], [address], 02/09/2024 14:52:48 02/09/20 24 02/09/2024 COMP METAB OLIC PANEL ALT (SGPT) 42 U/L 0-65 Not Available [facility] ([facility]) [address] [facility], [place], [address], 02/09/2024 14:52:48 02/09/20 24 02/09/2024 COMP METAB OLIC PANEL alk phosphatase 93 U/L 46-116 Not Available [facility] ([facility]) [address] [facility], [place], [address], 02/09/2024 14:52:48 02/09/20 24 02/10/2024 FACTO R VIII (8) ACTIV ITY factor VIII (8) activity 218 % 56-140 high FVIII activ ity can incre ase in a varie ty of clini luan situa tions inclu ding michael l azul boyle, in sampl es drawn from patie nts (part icula rly child miguel) who are visib ly stres sed at the time of phleb otomy , as acute phase react ants, or in respo nse to certa in drug thera pies such as DDAVP . Persi stent ly eleva ely FVIII activ ity is a risk facto r for venou s throm bosis as well as recur rence of venou s throm bosis . Risk is grade d and incre ases with the degre e of eleva tion. Altho ugh eleva ely FVIII activ ity has [facility], a rm ic basis for the eleva tion has not yet been eluci dated (Br J Haema maida. 2012; 157:6 53-66 3). Perfo rmed at: [facility] [place] [address] [place] [address] Lab Direc tor: Eloisa pickens MD, Phone : [phone] Not Available [facility] ([facility]) [address] [place], [address], 02/10/2024 15:12:07 02/09/20 24 02/10/2024 ANTIT HROMB IN 3 ACTIV ITY antithrombin activity 132 % 75-135 Dire t Xa inhib itor antic oagul ants such as rivar oxaba n, apixa ban and edoxa ban will lead to spuri ously eleva ely antit hromb in activ ity level s possi nini maski ng a defic iency . Not Available [facility] ([facility]) [address] [facility], [place], [address], 02/10/2024 15:12:08 02/09/20 24 02/10/2024 ANTIT HROMB IN 3 ACTIV ITY antithrobmin antigen 96 % 72-124 Perfo rmed at: [facility] [place] [address] [place] [address] Lab Direc tor: Eloisa pickens MD, Phone : [phone] Not Available [facility] ([facility]) [address], [place], [address], 02/10/2024 15:12:08 02/09/20 24 02/10/2024 PROTE IN C FUNTI ONAL protein C functional 62 % 73-180 low A defic iency of prote in C (PC), eithe r conge nital or acqui red, incre ases the risk of throm boemb olism . Acqui red PC defic iency occur s more frequ ently than conge nital defic iency . PC level s can be trans ientl y dimin ished after a throm botic event or surge ry or in the prese nce of certa in antic oagul ants. Hepar in, direc t Xa inhib itor, or throm botic inhib itor thera py does not alter PC level s physi ologi donell and does not inter fere with this assay becau se it is chrom ogeni c and clot- based . Vitam in K antag onist thera py may decre ase plasm a level s of funct ional prote in C (PC) as PC is a vitam in K-dep enden t prote in. Vitam in K defic iency , due to dieta ry insuf ficie ncy or malab sorpt ion will also lead to reduc ed PC level s. Acqui red defic iency can be found in indiv idual s with disse minat ed intra vascu lar coagu latio n (DIC) and sepsi s. Sever e hepat ic disor ders (hepa titis , cirrh osis, etc.) , nephr otic syndr ome, malig raudel and infla mmato ry bowel disea se can lead to dimin ished PC level s. Drug thera py with L-asp aragi nse or fluor ourac il can also reduc e PC level s. Level s may be decre ased in patie nts with polyc ythem ia vera, sickl e cell disea se and essen tial throm bocyt hemia . Repea t evalu ation on a new plasm a sampl e to confi rm or refut e this resul t shoul d be consi dered , after rulin g out acqui red cause sfabricio on the clini luan scena anton. Perfo rmed at: - [facility] [place] [address] , [place] [address] Lab Direc tor: Eloisa pickens MD, Phone : [phone] Not Available [facility] ([facility]) [address] [facility], [place], [address], 02/10/2024 15:12:11 02/09/20 24 02/10/2024 BETA- 2 GLYCO PROTE IN I AB beta-2 glycoprotein I Ab, IgG <9 gpi_I gG_un its 0-20 . The refer ence inter pippa refle cts a 3SD or 99th perce ntile inter pippa, which is thoug ht to repre sent a poten tiall y clini donell signi fican t resul t in accor dance with the Inter natio nal Conse nsus State ment on the class ifica tion crite walter for defin itive antip hosph olipi d syndr ome (APS) . J Throm b Haem 2006; 4:295 -306. Not Available [facility] ([facility]) [address] [facility], [place], [address], 02/10/2024 15:12:12 02/09/20 24 02/10/2024 BETA- 2 GLYCO PROTE IN I AB bets-2 glycoprotein I Ab, IgM <9 gpi_I gM_un its 0-32 . The refer ence inter pippa refle cts a 3SD or 99th perce ntile inter pippa, which is thoug ht to repre sent a poten tiall y clini donell signi fican t resul t in accor dance with the Inter natio nal Conse nsus State ment on the class ifica tion crite walter for defin itive antip hosph olipi d syndr ome (APS) . J Throm b Haem 2006; 4:295 -306. Perfo rmed at: [facility] víctor [address] [facility], [place] [address] Lab Direc tor: Wing castellano PhD, Phone : [phone] Not Available [facility] ([facility]) [address], [place], [address], 02/10/2024 15:12:12 02/09/20 24 02/10/2024 BETA- 2 GLYCO PROTE IN I AB beta-2 glycoprotein I Ab, IgA <9 gpi_I gA_un its 0-25 . The refer ence inter pippa refle cts a 3SD or 99th perce ntile inter pippa, which is thoug ht to repre sent a poten tiall y clini donell signi fican t resul t in accor dance with the Inter natio nal Conse nsus State ment on the class ifica tion crite walter for defin itive antip hosph olipi d syndr ome (APS) . J Throm b Haem 2006; 4:295 -306. Not Available [facility] ([facility]) [address], [place], [address], 02/10/2024 15:12:12 02/09/20 24 02/10/2024 PROTE IN S-FUN CTION AL(AC TIVIT Y) protein S, functional 42 % 63-140 low A defic iency of prote in S (PS), eithe r conge nital or acqui red, incre ases the risk of throm boemb olism . PS activ ity level s may be false ly low in indiv idual s with APCR/ Facto r V Leide n. Consi oscar perfo rming free prote in S antig en in those with APCR/ Facto r V Leide n befor e sridevi g a diagn osis of prote in S defic iency . Acqui red PS defic iency is more commo n than conge nital defic iency . PS value s decre ase with michael l pregn tamar, and are also depen dent on age, sex and hormo ne statu s. PS value s tend to be lower in a young er age group and lower in women than in men. Level s may be decre ased in pre-m enopa usal women on oral contr acept steven agent s. Acqui red defic iency can occur as a resul t of vitam in K defic iency or antag onism , sever e hepat ic disor ders, (hepa titis , cirrh osis, etc.) , nephr otic syndr ome, infla mmato ry bowel disea se, certa in chemo thera peuti c agent s, L-asp aragi nse thera py, sepsi s, disse minat ed intra vascu lar coagu latio n (DIC) and acute throm bosis . Level s may be decre ased in patie nts with polyc ythem ia vera, sickl e cell disea se and essen tial throm bocyt hemia . Repea t evalu ation on a new plasm a sampl e to confi rm or refut e this resul t shoul d be consi dered , after mckenzielin g out acqui red cause s, depmellissa craig on the clini luan scena anton. Perfo rmed at: - [facility] [place] [address] [facility] [place] [address] Lab Direc tor: Eloisa pickens MD, Phone : [phone] Not Available [facility] ([facility]) [address] [facility], [place], [address], 02/10/2024 17:10:27 02/09/20 24 02/10/2024 CARDI OLIPI N AB IGM anticardioli pin Ab, IgM <9 mpl_U /mL 0-12 Negat steven: <13 Indet ermin ate: 13 - 20 Low-M ed Posit steven: >20 - 80 High Posit steven: >80 Perfo rmed at: - [facility] [address] [place] [address] Lab Direc tor: Wing castellano PhD, Phone : [phone] Not Available [facility] ([facility]) [address] [place], [address], 02/10/2024 17:10:28 02/09/20 24 02/10/2024 CARDI OLIPI N AB IGG anticardioli pin Ab, IgG <9 gpl_U /mL 0-14 Negat steven: <15 Indet ermin ate: 15 - 20 Low-M ed Posit steven: >20 - 80 High Posit steven: >80 Perfo rmed at: - [facility] n [address] [facility], [place] [id number] Lab Direc tor: Wing castellano PhD, Phone : [phone] Not Available [facility] ([facility]) [address] [facility], [place], [address], 02/10/2024 17:10:29 02/09/20 24 02/11/2024 LUPUS ANTIC OAGUL ANT PTT-la 60.2 sec 0.0-43 .5 high Not Available [facility] ([facility]) [address] [facility], [place], [address], 02/11/2024 13:12:04 02/09/20 24 02/11/2024 LUPUS ANTIC OAGUL ANT drvvt 50.8 sec 0.0-47 .0 high Not Available [facility] ([facility]) [address] [facility], [place], [address], 02/11/2024 13:12:04 02/09/20 24 02/11/2024 LUPUS ANTIC OAGUL ANT interpretati on: Commen t: No lupus antic oagul ant was detec ely. Taryn hernández st the prese nce of an inhib itor and this could repre sent a speci fic facto r inhi bitor (e.g. to facto r X, V and II), dabig atran (a direc t throm bin inhib itor antic oagul ant), or a direc t Xa inhib itor antic oagul ant such as rivar oxaba n, apixa ban or edoxa ban. As antib see titer s may fluct uate with time, repea t testi ng may be indic ated and ideal ly shoul d be perfo rmed in the absen ce of antic oagul ant thera py. Perfo rmed at: - [facility] [place] [address] [place] [address] Lab Direc tor: Eloisa pickens MD, Phone : [phone] Not Available [facility] ([facility]) [address] [facility], [place], [address], 02/11/2024 13:12:04 02/09/20 24 02/11/2024 LUPUS ANTIC OAGUL ANT PTT-la 60.2 sec 0.0-43 .5 high Not Available [facility] ([facility]) [address] [facility], [place], [address], 02/11/2024 13:12:05 02/09/20 24 02/11/2024 LUPUS ANTIC OAGUL ANT drvvt 50.8 sec 0.0-47 .0 high Not Available [facility] ([facility]) [address] [facility], [place], [address], 02/11/2024 13:12:05 02/09/20 24 02/11/2024 LUPUS ANTIC OAGUL ANT interpretati on: Commen t: No lupus antic oagul ant was detec ely. Taryn hernández st the prese nce of an inhib itor and this could repre sent a speci fic facto r inhi bitor (e.g. to facto r X, V and II), lowell gallegos (a direc t throm bin inhib itor antic oagul ant), or a direc t Xa inhib itor antic oagul ant such as rivar oxaba n, apixa ban or edoxa ban. As antib see titer s may fluct uate with time, repea t testi ng may be indic ated and ideal ly shoul d be perfo rmed in the absen ce of antic oagul ant thera py. Perfo rmed at: - [facility] [place] [address] [place] [address] Lab Direc tor: Eloisa pickens MD, Phone : [phone] Not Available [facility] ([facility]) [address] [place], [address], 02/11/2024 13:12:05 02/09/20 24 02/11/2024 LUPUS ANTIC OAGUL ANT PTT-la mix 54.4 sec 0.0-40 .5 high [facility]fo [facility]med at: [facility] [place] [address] [place] [address] 336 Lab Direc tor: Eloisa pickens MD, Phone : [phone] Not Available [facility] ([facility]) [address] [place], [address], 02/11/2024 13:12:05 02/09/20 24 02/11/2024 LUPUS ANTIC OAGUL ANT PTT-la 60.2 sec 0.0-43 .5 high Not Available [facility] ([facility]) [address] [place], [address], 02/11/2024 13:12:06 02/09/20 24 02/11/2024 LUPUS ANTIC OAGUL ANT hexagonal phase phospholipid 5 sec 0-11 Perfo rmed at: [facility] [place] [address] [place] [address] Lab Direc tor: Eloisa pickens MD, Phone : [phone] Not Available [facility] ([facility]) [address] [place], [address], 02/11/2024 13:12:06 02/09/20 24 02/11/2024 LUPUS ANTIC OAGUL ANT drvvt 50.8 sec 0.0-47 .0 high Not Available [facility] ([facility]) [address] [place], [address], 02/11/2024 13:12:06 02/09/20 24 02/11/2024 LUPUS ANTIC OAGUL ANT interpretati on: Commen t: No lupus antic oagul ant was detec elyDez muñiz edgar st the prese nce of an inhib itor and this could repre sent a speci fic facto r inhi bitor (e.g. to facto r X, V and II), lowell atran (a direc t throm bin inhib itor antic oagul ant), or a direc t Xa inhib itor antic oagul ant such as rivar oxaba n, apixa ban or edoxa ban. As antib see titer s may fluct uate with time, repea t testi ng may be indic ated and ideal ly shoul d be perfo rmed in the absen ce of antic oagul ant thera py. Perfo rmed at: [facility] [address] [place] [address] 6257 Lab Direc tor: Eloisa pickens MD, Phone : [phone] Not Available [facility] ([facility]) [address] [place], [address], 02/11/2024 13:12:06 02/09/20 24 02/11/2024 LUPUS ANTIC OAGUL ANT PTT-la mix 54.4 sec 0.0-40 .5 high Perfo rmed at: [facility] palmer [address] [place] [address] 8595 Lab Direc tor: Eloisa pickens MD, Phone : [phone] Not Available [facility] ([facility]) [address] [place], [address], 02/11/2024 13:12:06 02/09/20 24 02/11/2024 LUPUS ANTIC OAGUL ANT PTT-la 60.2 sec 0.0-43 .5 high Not Available [facility] ([facility]) [address] [place], [address], 02/11/2024 13:12:08 02/09/20 24 02/11/2024 LUPUS ANTIC OAGUL ANT hexagonal phase phospholipid 5 sec 0-11 Perfo rmed at: [facility] Gisele palmer [address] [place] [address] 8598 Lab Direc tor: Eloisa pickens MD, Phone : [phone] Not Available [facility] ([facility]) [address] [facility], [place], [address], 02/11/2024 13:12:08 02/09/20 24 02/11/2024 LUPUS ANTIC OAGUL ANT drvvt 50.8 sec 0.0-47 .0 high Not Available [facility] ([facility]) [address] [facility], [place], [address], 02/11/2024 13:12:08 02/09/20 24 02/11/2024 LUPUS ANTIC OAGUL ANT drvvt mix 39.6 sec 0.0-40 .4 Perfo rmed at: [facility] [address] [place] [address] 4698 Lab Direc tor: Eloisa pickens MD, Phone : [phone] Not Available [facility] ([facility]) [address] [place], [address], 02/11/2024 13:12:08 02/09/20 24 02/11/2024 LUPUS ANTIC OAGUL ANT interpretati on: Commen t: No lupus antic oagul ant was detec ely. Taryn hernández st the prese nce of an inhib itor and this could repre sent a speci fic facto r inhi bitor (e.g. to facto r X, V and II), dabadriane atran (a direc t throm bin inhib itor antic oagul ant), or a direc t Xa inhib itor antic oagul ant such as rivar oxaba n, apixa ban or edoxa ban. As antib see titer s may fluct uate with time, repea t testi ng may be indic ated and ideal ly shoul d be perfo rmed in the absen ce of antic oagul ant thera py. Perfo rmed at: [facility] [address] [place], [place] [address] 9626 Lab Direc tor: Eloisa pickens MD, Phone : [phone] Not Available [facility] ([facility]) [address], [place], [address], 02/11/2024 13:12:08 02/09/20 24 02/11/2024 LUPUS ANTIC OAGUL ANT PTT-la mix 54.4 sec 0.0-40 .5 high Perfo rmed at: [facility] [address] [place] [address] 9355 Lab Direc tor: Eloisa pickens MD, Phone : [phone] Not Available [facility] ([facility]) [address] [place], [address], 02/11/2024 13:12:08 02/09/20 24 02/16/2024 FACTO R II, DNA BRENDAN SIS factor II, DNA analysis Commen t Resul t: c.*97 G>A - Not Detec ely . This resul t is not assoc iated with an incre ased risk for ferdinand ous throm boemb olism . See Addit ional Clini luan Infor matio n and Comme nts. . Addit ional Clini luan Infor matio n: Venou s throm boemb olism is a multi facto rial disea se influ ence d by rm ic, envir onmen caitlyn, and circu mstan tial risk facto rs. The c.*97 G>A varia nt in the F2 gene is a rm ic risk facto r for venou s throm boemb olism . Heter ozygo us laz ers have a 2- to 4-fol d i ncrea sed risk for venou s throm boemb olism . Homoz ygote s for the c.*97 G> A varia nt are rare. The annua l risk of VTE in homoz ygote s has been rep orted to be 1.1%/ year. Indiv idual s who carry both a c.*97 G>A varia nt in the F2 gene and a c.160 1G>A (p. Arg53 4Gln) varia nt in the F5 gen e (comm only refer red to as Facto r V Leide n) have an appro ximat carri 20- fold incre ased risk for venou s throm boemb olism . Risks are li regina to be even highe r in more compl ex genot ype combi natio ns invol vi ng the F2 c.*97 G>A varia nt and Facto r V Leide n (PMID : [id number] [id number]). Ad ditio nal risk facto rs inclu de but are not limit ed to: defic iency of p rotei n C, prote in S, or antit hromb in III, age, male sex, perso nal or f amily histo ry of deep vein throm boemb olism , smoki ng, surge ry, prol onged immob iliza tion, malig nant neopl asm, tamox ifen treat ment, ral oxife ne treat ment, oral contr acept steven use, hormo ne repla cemen t thera py, and pregn tamar. Manag ement of throm botic risk and throm botic even ts shoul d follo w estab lishe d guide lines and fit the clini luan circu msta nce. This resul t canno t predi ct the occur rence or recur rence of a thro mboti c event . . Comme nts: Rm ic couns ming is recom brenda d to discu ss the poten tial c linic al impli catio ns of posit steven resul ts, as well as recom menda tions for testi ng famil y membe rs. Rm ic Coord inato rs are avail able for healt h care provi ders to discu ss resul ts at [phone] ([phone] ). . Test Detai ls: Varia nt brendan zed: c.*97 G>A, previ ously refer red to as G2021 0 A . Metho ds/Li mitat ions: DNA brendan sis of the F2 gene (NM_0 21464 .[id number]) was perfo rmed by P CR ampli ficat ion follo wed by restr ictio n enzym e brendan sis. The d iagno stic sensi tivit y is >99%. Resul ts must be combi mirella with clini luan infor matio n for the most accur ate inter preta tion. Molec ular- based testi ng is highl y accur ate, but as in any labor atory test, d iagno stic error s may occur . False posit steven or false negat steven resul ts m ay occur for reaso ns that inclu de rm ic varia nts, blood trans fusio n s, bone marro w trans plant ation , somat ic or tissu e-spe cific mosai cism , misla beled sampl es, or kim eous repre senta tion of famil y relat ionsh ips. . This test was devel oped and its perfo rmanc e say cteri stics deter mined by [employer] [facility]. It has not been clear ed or appro juan manuel by the Food and Drug Admin istra tion. . Refer ences : Jose Tsang, Javier RECINOS, David Noonan, Dot HIGGINS, Hung in ; [facility] Pro fessi onal Pract ice and Guide lines Commi ttee. Adden dum: Monster [place] e of Medic al Rm ics conse nsus state ment on facto r V Leide n muta tion testi ng. Rm Med. 2020May 12. doi: 10.10 38/s4 1436- 021-0 110 8-x. PMID: 78581 767. . Saumya scruggs JL. Proth rombi n Throm bophi barrie. 2005Oct 01 Updat ed 2020Apr 13 . In: Kwadwo MP, Howard sutton HH, Heydi RA, et al., edito rs. GeneR eview s(R) Inter net . Seatt le ([place]): Unive rsity of Ulysses Dang; 1992- 2020. Avail able from: https ://nely muir.lexib i.nlm .nih. gov/b ooks/ NBK11 48/ . Ck Tsang, Javier RECINOS, Edgar X, Ceasar B, Spect or EB, Jennifer P, Florin ards CS; [facility] Labor atory Quali ty Assur ance Commi ttee. Venou s throm mauricio mboli sm labor atory testi ng (fact or V Leide n and facto r II c.*97 G>A), 2018 updat e: a techn ical stand juana of the Monster arzola of Medic al Rm ics and Genom ics ([facility] ). Rm Med. 2018 Feb;2 0(12) :148 9-149 8. doi: 10.10 38/s4 1436- 018-0 322-z . Epub 2017Dec 12. PMID: 62150 698. Not Available [facility] ([facility]) [address] [facility], [place], [address], 02/16/2024 10:08:44 02/09/20 24 02/16/2024 FACTO R II, DNA BRENDAN SIS reviewed by: Syd mckeon Techn ical [place] nent perfo rmed at [facility] RTP Profe harry al [place] nent perfo rmed by: . Alexia Santiago, Ph.D. , [facility] Direc tor, Molec ular Rm ics [address] [facility] [address] Perfo rmed at: [facility] RTP [address] [facility] , [place] [address] Lab Direc tor: Aicha Silver [facility] , Phone : [phone] Not Available [facility] ([facility]) [address] [facility], [place], [address], 02/16/2024 10:08:44 02/09/20 24 02/16/2024 FACTO R V LEIDE N MUTAT ION factor V leiden SYD Mckeon Resul t: c.160 1G>A (p.Ar g534G ln) - Not Detec ely . This resul t is not assoc iated with an incre ased risk for ferdinand ous throm boemb olism . See Addit ional Clini luan Infor matio n and Comme nts. . Addit ional Clini luan Infor matio n: Venou s throm boemb olism is a multi facto rial disea se influ enced by rm ic, envir onmen caitlyn, and circu pilian tial risk facto rs. The c.160 1G>A (p. Arg53 4Gln) varia nt in the F5 gene, commo nly refer red to as Facto r V Leide n, is a rm ic risk facto r for venou s throm boemb olism . Heter ozygo us laz ers of this varia nt have a 6- to 8- fold incre ased risk for venou s throm boemb olism . Indiv idual s homoz ygous for this varia nt (ie, with a copy of the varia nt on each chrom osome ) have an appro ximat carri 80-fo ld incre ased risk for venou s throm boemb olism . Indiv idual s who carry both a c.*97 G>A varia nt in the F2 gene and Facto r V Leide n have an appro ximat carri 20-fo ld incre ased risk for venou s throm boemb olism . Risks are likel y to be even highe r in more compl ex genot ype combi natio ns invol ving the F2 c.*97 G>A varia nt and Facto r V Leide n (PMID : [id number] 767). Addit ional risk facto rs inclu de but are not limit ed to: defic iency of prote in C, prote in S, or antit hromb in III, age, male sex, perso nal or famil y histo ry of deep vein throm boemb olism , smoki ng, surge ry, prolo nged immob iliza tion, malig nant neopl asm, tamox ifen treat ment, ralox ifene treat ment, oral contr acept steven use, hormo ne repla cemen t thera py, and pregn tamar. Manag ement of throm botic risk and throm botic event s shoul d follo w estab lishe d guide lines and fit the clini luan circu mstan ce. This resul t canno t predi ct the occur rence or recur rence of a throm botic event . . Comme nt: Rm ic couns hectorcollin is recom brenda d to discu ss the poten tial clini luan impli catio ns of posit steven resul ts, as well as recom menda tions for testi ng famil y membe rs. . Rm ic Coord inato rs are avail able for healt h care provi ders to discu ss resul ts at [phone] ([phone] ). . Test Detai ls: Varia nt Brendan zed: c.160 1G>A (p. Arg53 4Gln) , refer red to as Facto r V Leide n . Metho ds/Li mitat ions: DNA brendan sis of the F5 gene (NM_0 61053 .5) was perfo rmed by PCR ampli ficat ion follo wed by restr ictio n enzym e brendan sis. The diagn ostic sensi tivit y is >99%. Resul ts must be combi mirella with clini luan infor matio n for the most accur ate inter preta tion. Molec ular- based testi ng is highl y accur ate, but as in any labor atory test, diagn ostic error s may occur . False posit steven or false negat steven resul ts may occur for reaso ns that inclu de rm ic varia nts, blood trans fusio ns, bone marro w trans plant ation , somat ic or tissu e-spe cific mosai cism, misla beled sampl es, or kim eous repre senta tion of famil y relat ionsh ips. . This test was devel oped and its perfo rmanc e say cteri stics deter mined by [employer]. It has not been clear ed or appro juan manuel by the Food and Drug Admin istra tion. . Refer ences : Jose S, Javier noonan AK, David houston R, Dot WW, Hung in JH; [facility] Profe ssion al Pract ice and Guide lines Commi ttee. Adden dum: Monster St ge of Medic al Rm ics conse nsus state ment on facto r V Leide n mutat ion testi ng. Rm Med. 2020May 12. doi: 10.10 38/s4 1436- 021-0 1108- x. PMID: 59843 767. . Saumya VILLALTA. Facto r V Leide n Throm bophi barrie. 1998July 21 (Upda ely 2017Mar 13). In: Kwawdo MP, Howard sutton HH, Heydi RA, et al., inderjitito rs. GeneR tawanna s(R) (Inte rnet) . Ulysses mackey ([place]): Unive rsity of Mary palmer Ulysses mackey; 1991- 2020. Avail able from: https ://ww w.ncb i.nlm .nih. gov/b ooks/ NBK13 68/ . Ck S, Javier r AK, Edgar X, Ceasar B, Spect or EB, Jennifer P, Wendy rds CS; [facility] Labor atory Quali ty Assur ance Commi ttee. Venou s throm boemb olism labor atory testi ng (fact or V Leide n and facto r II c.*97 G>A), 2018 updat e: a techn ical stand juana of the oMnster St ge of Medic al Rm ics and Genom ics ([facility] ). Rm Med. 2018 Feb;2 0(12) :1489 -1498 . doi: 10. 38/s4 1436- 018-0 322-z . Epub 2017Dec 12. PMID: 31089 698. Not Available [facility] ([facility]) [address], [place], [address], 02/16/2024 13:09:38 02/09/20 24 02/16/2024 FACTO R V LEIDE N MUTAT ION reviewed by: SYD Mckeon Techn ical [place] nent perfo rmed at [facility] RTP Profmiya mcdonald al [place] nent perfo rmed by: . Alexia Santiago, Ph.D. , [facility] Dire tor, Molec ular Rm ics [address] [facility] [address] Perfo rmed at: [facility] RTP [address] [facility] , [place] [address] Lab [facility] tor: Aicha Silver [facility] , Phone : [phone] Not Available [facility] ([facility]) [address], [place], [address], 02/16/2024 13:09:38 Result Notes None recorded. Procedures Surgical History Date Name Laterality Status Provider Name and Address Organization Details Recorded Time vitrectomy completed Roseanne Workman [place] - [facility] & [place] 02/09/2024 12:07:46 cardiac pacemaker procedure completed Roseanne RIVERA [facility] & [place] 02/09/2024 12:08:13 cardiac catheterization completed Roseanne RIVERA [facility] & [place] 02/09/2024 12:08:20 biopsy of lung completed Roseanne RIVERA [facility] & [place] 02/09/2024 12:09:20 section completed Roseanne RIVERA [facility] & [place] 02/09/2024 12:10:10 Carpal tunnel surgery completed Roseanne RIVERA [facility] & [place] 02/09/2024 12:11:21 cardiopulmonary bypass operation completed Roseanne RIVERA [facility] & [place] 02/09/2024 12:11:59 Imaging Results None recorded. Procedure Notes None recorded. Medical Equipment None Reported. Allergies Allergen ID Allergen Name Allergen Category Reaction Reaction Severity Criticality Documentation Date Start Date Code Code System Note Provider Name and Address Organization Details Recorded Time 434824 Product containin g penicilli n (product) medicatio n Not available Not available Not available 02/09/2024 71744 8001 SNOMED ODALYS Fleming [facility] & [place] 4 12:02:48 879020 tetracycl ine medicatio n Not available Not available Not available 02/09/2024 00032 RxNorm ODALYS Fleming [facility] & [place] 4 12:02:55 170156 Keflex medicatio n Not available Not available Not available 02/09/2024 31412 7 RxNorm ODALYS Fleming [facility] & [place] 4 12:03:06 022635 codeine medicatio n Not available Not available Not available 02/09/2024 2670 RxNorm ODALYS Fleming [facility] & [place] 12:03:14 134724 morphine medicatio n Not available Not available Not available 02/09/2024 7052 RxNorm ODALYS Fleming [facility] & [place] 4 12:03:20 088059 Cresttx medicatio n Not available Not available Not available 02/09/2024 37921 4 RxNorm ODALYS Fleming [facility] & [place] 4 12:03:25 Medications Name Sig Start Date Stop Date Status Note LastModified by Organization Details LastModified Time compound drug active Not Available Not Available Not Available latanoprost 0.005 % eye drops active Not Available Not Available No t Available buspirone 5 mg tablet active Not Available Not Available Not Available nystatin 100,000 unit/mL oral suspension active Not Available Not Available N ot Available ipratropium 0.5 mg-albuterol 3 mg (2.5 mg base)/3 mL nebulization soln active Not Available Not Avai lable Not Available azithromycin 250 mg tablet active Not Available Not Available Not Available Glucagon Emergency Kit 1 mg solution for injection active Not Available Not Availabl e Not Available fluocinonide 0.05 % topical gel active Not Available Not Available Not Available clobetasol 0.05 % topical cream active Not Available Not Availabl e Not Available ciprofloxacin 250 mg tablet active Not Available Not Available No t Available bupropion HCl SR 100 mg tablet,12 hr sustained-release active Not Available Not Avai lable Not Available mycophenolate mofetil 500 mg tablet active Not Available Not Available Not Available cefadroxil 500 mg capsule active Not Available Not Available Not Available clindamycin 1 % topical gel active Not Available Not Available Not Available trazodone 100 mg tablet active Not Available Not Available Not Available levothyroxine 125 mcg tablet active Not Available Not Available N ot Available buspirone 10 mg tablet active Not Available Not Available Not Available warfarin 5 mg tablet active Not Available Not Available Not Available losartan 25 mg tablet active Not Available Not Available Not Available brimonidine 0.2 % eye drops active Not Available Not Available No t Available gabapentin 300 mg capsule active Not Available Not Available Not Available folic acid 1 mg tablet active Not Available Not Available Not Available mupirocin 2 % topical ointment active Not Available Not Avail able Not Available metoprolol succinate ER 25 mg tablet,extended release 24 hr active Not Available Not Availabl e Not Available hydroxychloroquine 200 mg tablet active Not Available Not Availabl e Not Available Ketostix strips active Not Available N ot Available Not Available enoxaparin 80 mg/0.8 mL subcutaneous syringe active Not Available Not Available Not Available ezetimibe 10 mg tablet active Not Available Not Available Not Available bupropion HCl XL 150 mg 24 hr tablet, extended release active Not Available Not Available Not Available mirtazapine 7.5 mg tablet active Not Available Not Available Not Available duloxetine 20 mg capsule,delayed release active Not Available Not Available Not Available duloxetine 60 mg capsule,delayed release active Not Available Not Available Not Available Humalog KwikPen (U-100) Insulin 100 unit/mL subcutaneous active Not Available Not Available Not Available pitavastatin calcium 4 mg tablet active Not Available Not Av ailable Not Available Mucus DM 30 mg-600 mg tablet,extended release active Not Available Not Available Not Available Eliquis 5 mg tablet active Not Availab le Not Available Not Available Toujeo SoloStar U-300 Insulin 300 unit/mL (1.5 mL) subcutaneous pen active Not Available Not Avail able Not Available Trelegy Ellipta 200 mcg-62.5 mcg-25 mcg powder for inhalation active Not Available Not Available N ot Available Vitals Date Recorded Body height Body mass index (BMI) Body weight Body temperature Oxygen saturation Oxygen saturation in Arterial blood by Pulse oximetry Heart rate Systolic blood pressure Diastolic blood pressure Provider Name and Address Organization Details Last Updated DateTime 4 162.56 cm 25.9 kg/m2 15596.7 3 g 97.8 [degF] 97 % 97 % 64 /min 145 mm[Hg] 78 mm[Hg] [facility] [place] 4 12:30:28 Social History None recorded. Functional Status Question Answer Note LastModified by Organizat ion Details LastModified Time Do you use any illicit or recreational drugs? No [id number] Information not available 02/09/2024 What is your level of alcohol consumption? Moderate 1-2 vodka daily [id number] Information not available 02/09/2024 Mental Status None recorded. Family History Nothing Reported. Medical History No medical history recorded. Gynecological HistoryNo gynecological history recorded. Obstetrics History GPAL:G 0 P 0 0 0 0 Immunizations Vaccine Type Date Status Note Provider Nam e and Address Organization Details Recorded Time zoster recombinant 9 completed Roseanne Workman null, [place] [facility] [place] 02/09/2024 12:01:48 zoster recombinant 9 completed Roseanne Workman null, [place] [facility] [place] & [place] 02/09/2024 12:01:48 Influenza, high-dose, quadrivalent, PF 3 completed Roseanne Workman null[place] [facility] [place] 02/09/2024 12:01:48 Influenza, high-dose, quadrivalent, PF 2 completed Roseanne Workman null, [place] [facility] & [place] 02/09/2024 12:01:48 COVID-19, mRNA, LNP-S, PF, 30 mcg/0.3 mL dose 1 completed Roseanne Workman null, [place] [facility] [place] 02/09/2024 12:01:48 COVID-19, mRNA, LNP-S, PF, 30 mcg/0.3 mL dose 1 completed Roseanne Workman null, [place] - [facility] - [place] & [place] 02/09/2024 12:01:48 pneumococcal polysaccharide PPV23 9 completed Roseanne Workman null[place] [facility] [place] 02/09/2024 12:01:48 Pneumococcal conjugate PCV 13 7 completed Roseanne Workman null[place] [facility] [place] 02/09/2024 12:01:48 Pneumococcal conjugate PCV 13 0 completed Roseanne Workman null, [place] [facility] [place] 02/09/2024 12:01:48 Influenza, high-dose, trivalent, PF 4 completed Roseanne Workman null[place] [facility] [place] 02/09/2024 12:01:48 Influenza, high-dose, trivalent, PF 1 completed Roseanne Workman null[place] [facility] [place] 02/09/2024 12:01:48 Influenza, high-dose, trivalent, PF 8 completed Roseanne Workman null, ODALYS RIVERA - [place] & [place] 02/09/2024 12:01:48 Influenza, high-dose, trivalent, PF 9 completed Roseanne medina, ODALYS RIVERA - [place] & [place] 02/09/2024 12:01:48 Influenza, split virus, trivalent, preservative 9 completed Roseanne medina, ODALYS RIVERA - [place] & [place] 02/09/2024 12:01:48 Hep A, adult 9 completed Roseanne medina, ODALYS RIVERA - [place] & [place] 02/09/2024 12:01:48 Hep A, adult 9 completed Roseanne medina, ODALYS RIVERA - [place] & [place] 02/09/2024 12:01:48 Past Encounters Encounter ID Performer Location Encounter Start Date Encounter Closed Date Diagnosis/Indication Diagnosis SNOMED-CT Code Diagnosis ICD10 Code Diagnosis Note [id number] Yue Brown PA-C [facility] Oncology [facility] H[facility]olog [facility] [address] [facility] [address] [place] [address] 02/09/2024 11:34:59 02/09/2024 14:48:17 Thrombosis 504769866 I82.90 Patient developed dyspnea and went to the [facility] ED on February 02, 2024 for evaluation . Echocardio gram with left apical thrombus. Patient was taking Eliquis at that time. She denies any missed doses. Patient has atrial fibrillati on and had a stroke in 2022. She has been on Eliquis since. 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 Will schedule follow-up with [facility] for monitoring . Patient has a history of lupus and follows with Rheumatolo dayo. Denies any family history of blood clots. She does not smoke. She drinks 2 alcoholic beverages per night. She has drank for at least 2 years. Patient encouraged to cut back on alcohol consumptio n. Denies any recent surgeries, travel, or infection. She is mostly sedentary. She states she has trouble managing her medication s and gets confused easily. Will order home health for medication management . Patient is using a walker and would benefit from home health physical therapy. Will order. Will order hypercoagu lable evaluation today. Will follow up with further recommenda tions Thrombus o f cardiac chamber [id number] I51.3 Patient developed dyspnea and went to the [facility] ED on February 02, 2024 for evaluation . Echocardio gram with left apical thrombus. Patient was taking Eliquis at that time. She denies any missed doses. Patient has atrial fibrillati on and had a stroke in 2022. She has been on Eliquis since. 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 Will schedule follow-up with [facility] for [facility] . Patient has a history of lupus and follows with [facility]. Denies any family history of blood clots. She does not smoke. She drinks 2 alcoholic beverages per night. She has drank for at least 2 years. Patient encouraged to cut back on alcohol consumptio n. Denies any recent surgeries, travel, or infection. She is mostly sedentary. She states she has trouble managing her medication s and gets confused easily. Will order home health for medication management . Patient is using a walker and would benefit from home health physical therapy. Will order. Will order hypercoagu lable evaluation today. Will follow up with further recommenda tions Anticoagulant therapy 18 [id number] Z79.01 Patient has been transition ed to warfarin due to DOAC failure. Will schedule follow-up with [facility] for monitoring . Muscle weakness [id number] M62.81 Patient is using a walker and would benefit from home health physical therapy. Will order. Difficulty managing medication [id number] Z73.89 Patient states she has trouble managing her medication s and gets confused easily. Will order home health for medication management . Systemic l upus erythematosus [id number] M32.9 Patient has a history of lupus and follows with [facility]. Health Concerns Section Related Observation LastModified by Organization Detai ls LastModified Time None Recorded Concern Status LastModified by Organization Details LastModified Time None Recorded Advance Directives Directive None Recorded Payers Insurance Date Sequence Insurance Name Policy Number Policy Byrne Covered Member ID Byrne Member ID Guarantor Name 03/08/2024 1 [facility] (MEDICARE REPLACEMENT/A DVANTAGE - PPO) [id number] Michelle Felipe [id number] Michelle Felipe 02/09/2024 1 [facility] (MEDICARE REPLACEMENT/A DVANTAGE - HMO) Michelle Felipe [id number] Michelle Felipe Notes Date Note Type Note Provider Name and Address Organization Details Recorded Time 02/09/2024 text/html 74-year-old fema narendra presents for evaluation of arterial thrombus. Patient developed dyspnea and went to the [facility] ED on February 02, 2024 for evaluation. Echocardiogram with left apical thrombus. Patient was taking Eliquis at that time. She denies any missed doses. Patient has atrial fibrillation and had a stroke in 2022. She has been on Eliquis since. She has been transitioned to warfarin due to DOAC failure. Will schedule follow-up with [facility] for monitoring. Patient has a history of lupus and follows with Rheumatology. Denies any family history of blood clots. She does not smoke. She drinks 2 alcoholic beverages per night. She has drank for at least 2 years. Patient encouraged to cut back on alcohol consumption. Denies any recent surgeries, travel, or infection. She is mostly sedentary. She states she has trouble managing her medications and gets confused easily. Will order home health for medication management. Patient is using a walker and would benefit from home health physical therapy. Will order. Will order hypercoagulable evaluation today. Will follow up with further recommendations Yue Brown PA-C [id number], [place], [id number], [facility] [place] - [place] & [place] 02/09/2024 13:50:22 OBGyn Episode No OBEpisode recorded.
--- OUTSIDE RECORDS SUMMARY | 2024-08-30 13:01 | XMS_ITS | Data Portability ---
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 Plan of Treatment Reminders Order Date Submit Date Provider Last Modified By Organization Details Last Modified Time Details Appointments VISUAL FIELD 2024 01:00P M Ophth_vis ual_field s Not available Not available Not available LEVEL 1 2024 01:15P M GILLES COOPER MD Not available Not available Not available FOLLOW UP DAK 2024 03:10P M DR. HUNT Not available Not available Not available Lab jas wet prep 2024 025 [facility], [address] [place] [address], [phone], 07/05/2024 15:58:20 surgical pathology study 2024 025 [facility], [address] [place] [address], [phone], 07/06/2024 10:48:12 surgical pathology study 2023 024 [facility], [address] [place] [address], [phone], 11/03/2023 15:30:51 Referral None recorded. Procedures None recorded. Surgeries None recorded. Imaging None recorded. Medication Orders clobetaso l 0.05 % topical ointment 2024 025 [facility], [address] [place] [address], [phone], 07/05/2024 15:58:20 clobetaso l 0.05 % topical cream 2023 024 [facility], [address] [place] [address], [id number], 11/03/2023 07:51:20 Patient TargetsNo targets recorded. Patient InstructionsNo instructions recorded. Reason for Referral None Reported. Results Created Date Observation Date Name Description Value Unit Range Abnormal Flag Note LastModifiedBy Organization Detail LastModifiedTime 07/06/1907/05/2024 [facility] surgical SEE BELOW Ullin topat Maribeth mckeon NAME: SUADGUS MAYNARD PATH: [id number] PROCE DURE DATE: 07/05 SIGNO UT DATE: 07/06 Copy to: Diagn osis: Right Hand, adjac ent to previ ous mohs site: TRICH ILEMM AL CYST SOURC E OF SPECI MEN: SKIN, R HAND ADJ TO PREVI OUS MOHS SITE CLINI AGAP[facility] INFOR MATIO N: R/O: SCC VS CYST. Gross Descr iptio n: The speci men consi sted of a corbett fragm ent which was bisec ely and measu red 7 x 5 x 3 mm. All submi tted in one casse tte. Micro scopi c Descr iptio n: A cysti c struc ture conta ins jim ct kerat in with evide nce of trich ilemm al kerat iniza tion. AUSTIN PAEZ MD Abeba d Out Date: 07/06 10:47 1 Not Available [facility] [address] [facility], [place], [address], 07/06/2024 10:48:11 07/06/19 25 07/05/2024 jas wet prep JAS Prep negati ve Not Available [facility] [address], [place], [address], 07/05/2024 12:13:43 03/23/19 25 03/23/2024 optic al coher ence tomog alina, optic nerve No observ ation record ed. [email or web address] Not Available 2024 13:38:05 Result Notes None recorded. Problems Name Problem SNOMED Code Status Onset Date Resolution Date Notes Provider Name and Address Organization Details Recorded Time Heart failure 86462032 Active 2024 Kayla Prince [facility] 5 12:01:23 Systemic lupus erythemat osus 43629077 Active 2024 Kaylaelyssa Prince [facility] 5 12:01:50 Type 1 diabetes mellitus 14899887 Active 2024 Kaylaelyssa Prince [facility] 5 12:02:02 Secondary diabetes mellitus 3476876 Active 2015 From Automated Load;Provi oscar: Yong Zhu;Statu s: Active Not Available [facility] 6 03:07:23 Excess skin of eyelid 672683099 Active 2015 From Automated Load;Provi oscar: Yong Zhu;Statu s: Active Not Available [facility] 6 03:07:23 Tear film insuffici ency 46880981 Active 2015 From Automated Load;Provi oscar: Yong Zhu;Statu s: Active Not Available [facility] 6 03:07:23 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 Procedures Surgical History Date Name Laterality Status Provider Name and Address Organization Details Recorded Time 025 DAK - Cryo AK completed Kaylaelyssa Prince [facility] 07/05/2024 12:20:10 025 DAK - Biopsy, Tangential completed Kayla Prince [facility] 07/05/2024 12:09:54 025 OCT/Nerve completed GILLES COOPER MD [address] [place] [address] [place], [phone], [facility] 03/23/2024 17:00:49 024 DAK - Cryo AK completed Kayla Jaimeswajade [facility] 10/30/2023 14:05:21 024 DAK - Biopsy, Tangential completed Kaylaelyssa Jaimeswajade [facility] 10/30/2023 14:09:15 024 Visual Field Extended completed GILLES COOPER MD [address] [place] [address], [phone], [facility] 06/16/2023 14:49:13 024 OCT/Retina completed GILLES COOPER MD [address] [place] [address], [phone], [facility] 04/16/2023 14:09:44 023 OCT/Nerve completed GILLES COOPER MD [address] [place] [address], [phone], [facility] 01/06/2023 09:15:48 023 OCT/Retina completed GILLES COOPER MD [address] [place] [address], [phone], [facility] 01/06/2023 09:15:41 023 biopsy of lung completed Gilles Nayak [facility] 01/06/2023 08:27:56 023 Visual Field Extended completed GILLES COOPER MD [address] [place] [address] [place], [phone], [facility] 05/14/2022 14:44:47 022 OCT/Retina completed GILLES COOPER MD [address] [place] [address] [place], [address], [facility] 10/08/2021 16:44:46 022 OCT/Nerve completed GILLES COOPER MD [address] [place] [address], [phone], [facility] 05/24/2021 16:40:05 022 OCT/Retina completed GILLES COOPER MD [address] [place] [address], [phone], [facility] 05/24/2021 16:40:06 021 Visual Field Extended completed GILLES COOPER MD [address] [place] [address], [phone], [facility] 11/22/2020 16:17:23 021 OCT/Nerve completed GILLES COOPER MD [address] [place] [address], [phone], [facility] 08/17/2020 13:57:05 017 Cystourethroscopy completed Tia aHll [facility] 08/28/2016 14:44:58 017 Post Void Residual; Ultrasound completed Radha Herron [facility] 07/24/2016 16:36:07 Imaging Results None recorded. Procedure Notes None recorded. Medical Equipment None Reported. Allergies Allergen ID Allergen Name Allergen Category Reaction Reaction Severity Criticality Documentation Date Start Date Code Code System Note Provider Name and Address Organization Details Recorded Time 790253 morphine sulfate medicatio n Not available Not available Not available 02/01/20162012 40104 RxNorm Comme nt: Creat ed By: Trav Morales; Paula ed Date: 2012 3:45: 55 PM; Not Available [facility] 6 12:01:18 587445 tetracycl ine hydrochlo ride medicatio n Not available Not available Not available 02/01/20162015 97493 6 RxNorm Comme nt: Creat ed By: Muna graves Date: 2015 1:56: 37 PM; Not Available [facility] 6 12:01:18 706531 morphine sulfate medicatio n other Not available Not available 02/02/20162008 27323 RxNorm React ion: OTHER ; Comme nt: Creat ed By: Donn graves Date: 009 10:16 :46 AM; Not Available [facility] 6 08:25:26 005726 Keflex medicatio n Not available Not available Not available 08/16/201992218 7 RxNorm Nilam Jett [facility] 0 14:21:12 749213 Product containin g penicilli n (product) medicatio n rash Not available Not available 05/24/2021 32433 8001 SNOMED David Maribel Lyly h [facility] 2 15:50:09 825756 Crestor medicatio n Not available Not available Not available 10/08/2021 63986 4 RxNorm Yamel Wild [facility] 2 15:39:18 389698 rosuvasta tin medicatio n Not available Not available Not available 10/08/2021 48662 2 RxNorm Yamel Wild [facility] 2 15:39:36 Medications Name Sig Start Date Stop Date Status Note LastModified by Organization Details LastModified Time latanopro st 0.005 % eye drops INSTILL 1 DROP INTO AFFECTED EYE(S) BY OPHTHALM IC ROUTE ONCE DAILY INTHE EVENING Both eyes 2023 active Not Available Not Available Not Avai lable ofloxacin 0.3 % eye drops INSTILL 1 DROP INTO AFFECTED EYE(S) BY OPHTHALM IC ROUTE 4 TIMES PER DAY Both eyes 05/14 completed Not Available Not Available Not Available Lasix 40 mg tablet Daily 06/26 completed Duration : 30 days;William quency: daily;Al t Frequenc y: as direct.; Medicati on Descript ion: furosemi de; Dosage:1 ; Route:or al; refills: 5; Quantity :30 tablet Not Available Not Available Not Available lisinopri l 20 mg tablet Bedtime 10/08 completed Duration : 30 days;William quency: hs;Medic ation Descript ion: lisinopr il; Dosage:1 ; Route:or al; refills: 5; Quantity :30 tablet Not Available Not Available Not Available clobetaso l 0.05 % topical cream APPLY A THIN LAYER TO THE AFFECTED AREA(S) ON ARMS AND LEGS BY TOPICAL ROUTE 2 TIMES PER DAY X 2 WEEKS THEN LIMIT TO WEEKENDS . 2023 active Not Available Not Available Not Avai lable Plavix 75 mg tablet Take 1 tablet every day by oral route. 10/08 completed Not Available Not Available Not Available levothyro xine 100 mcg tablet Daily active Frequenc y: daily;Me dication Descript ion: levothyr oxine; Dosage:1 ; Route:or al; refills: 0 Not Available Not Available Not Available brimonidi ne 0.2 % eye drops one drop both eyes 2 times a day 2023 active Not Available Not Available Not Avai lable metoprolo l tartrate 50 mg tablet Daily active Frequenc y: daily;Me dication Descript ion: metoprol ol tartrate ; Dosage:1 ; Route:or al; refills: 0 Not Available Not Available Not Available hydroxyzi ne HCl 25 mg tablet Take 1 tablet 3 times a day by oral route. 05/21 completed Not Available Not Available Not Available aspirin 81 mg tablet Daily 08/12 completed Duration : 30 days;William quency: daily;Me dication Descript ion: aspirin; Dosage:1 ; Route:or al; refills: 0; Quantity :30 tablet Not Available Not Available Not Available mupirocin 2 % topical ointment APPLY A SMALL AMOUNT TO THE AFFECTED AREA BY TOPICAL ROUTE 3 TIMES PER DAY 2023 active Not Available Not Available Not Avai lable clobetaso l 0.05 % topical ointment APPLY A THIN LAYER TO THE AFFECTED AREA(S) BY TOPICAL ROUTE 2 TIMES PER DAY FOR 2 WEEKS. 2024 active Not Available Not Available Not Avai lable Novolog U-100 Insulin aspart 100 unit/mL subcutane ous solution Three times a day 06/26 completed Duration : 10 days;William quency: tid;Medi cation Descript ion: insulin aspart; Route:burden bcutaneo us; refills: 0; Quantity :90 solution Not Available Not Available Not Available Citrucel (sucrose) oral powder 06/26 completed Medicati on Descript ion: methylce llulose; Route:or al; refills: 0 Not Available Not Available Not Available Estrace 0.01% (0.1 mg/gram) vaginal cream Insert 0.05 g by vaginal route. 09/30 completed Not Available Not Available Not Available magnesium 01/22 completed Not Available Not Available Not Available meloxicam 05/21 completed Medicati on Descript ion: meloxica m; Route:or al; refills: 0 Not Available Not Available Not Available tizanidin e 06/26 completed Medicati on Descript ion: tizanidi ne; Route:or al; refills: 0 Not Available Not Available Not Available calcium w/d active Not Available Not Avail able Not Available warfarin active Not Available Not Avai lable Not Available mycopheno late mofetil active Not Available Not Available Not Available folic acid active Not Available Not Available Not Available methocarb brigitte active dc Not Available Not Available Not Available hydroxych loroquine active Not Available Not Available No t Available amitripty line 06/26 completed Medicati on Descript ion: amitript yline; refills: 0 Not Available Not Available Not Available Plavix 10/08 completed Not Available Not Available Not Available Norvasc 01/06 completed Not Available Not Available Not Available losartan active Not Available Not Avai lable Not Available buspirone active Not Available Not Selin ilable Not Available Vitamin D3 active Medicati on Descript ion: cholecal ciferol; Route:or al; refills: 0 Not Available Not Available Not Available cetirizin e active Medicati on Descript ion: cetirizi ne; Route:or al; refills: 0 Not Available Not Available Not Available Humalog U-100 Insulin active Not Available Not Available Not Available gabapenti n active Not Available Not Available Not Available multivita min 01/06 completed Not Available Not Available Not Available Zetia active Not Available Not Availa ble Not Available Crestor Daily 08/12 completed Frequenc y: daily;Me dication Descript ion: rosuvast atin; Dosage:1 ; Route:or al; refills: 5; Quantity :30 tablet Not Available Not Available Not Available Cymbalta active Not Available Not Avai lable Not Available Levemir U-100 Insulin 100 unit/mL subcutane ous solution 08/12 completed Medicati on Descript ion: insulin detemir; Route:burden bcutaneo us; refills: 0 Not Available Not Available Not Available Pristiq 100 mg tablet,ex tended release 06/26 completed Medicati on Descript ion: desvenla faxine; Route:or al; refills: 0 Not Available Not Available Not Available Livalo active Not Available Not Availa ble Not Available Probiotic 1 tablet daily active Not Available Not Available No t Available Viibryd 20 mg tablet Take 2 tablets every day by oral route. 01/22 completed Not Available Not Available Not Available Eliquis 07/05 completed Not Available Not Available Not Available Garcinia Cambogia 200 mcg-500 mg tablet Take 2 tablets every day by oral route. 01/22 completed Not Available Not Available Not Available Vitamin B12 active Medicati on Descript ion: cyanocob alamin; refills: 0 Not Available Not Available Not Available Toukristinao Max U-300 SoloStar active Not Available Not Available Not Available aspirin 81 mg capsule Take 1 capsule every day by oral route. active Not Available Not Available No t Available Vitals None Recorded Social History Question Answer Notes LastModified by Organizat ion Details LastModified Time Tobacco Smoking Status Never Smoker Esperanza Day [facility] 06/26/2016 15:31:37 How Much Tobacco Do You Chew? None [email or web address] Information not available 09/30/2016 What Was The Date Of Your Most Recent Tobacco Screening? 12/29/2023 [email or web address] Information not available 12/29/2023 Has Tobacco Cessation Counseling Been Provided? No [email or web address] Information not available 09/30/2016 Sex: Female Functional Status Question Answer Note LastModified by Organization D etails LastModified Time What is your level of alcohol consumption? Moderate [email or web address] Information not available 09/30/2016 Mental Status None recorded. Family History Relationship Description Onset Age of this Age Resolved Age Notes LastModified by Organization Details LastModified Time Father Arthritis [email or web address] Not avail able 09/30/2016 13:26:28 Notes:1. Heart disease MOTHE R and grandparents 2. Hypertension mother 3. Acute myocardial infarction gf 4. Stroke syndrome [facility] 5. Droopy Eyelid gmth Medical History Condition Response Emphysema N Depression Y COPD N Arthritis Y Acid Reflux (GERD) N Skin Cancer Y Rheumatoid Arthritis N Bleeding Disorder N Age-related Macular Degeneration N Asthma N Cataract Y Thyroid Disorder Y Hepatitis Y Glasses/Contacts Y Glaucoma N RD/retinal tear N Diabetic Eye Disease Y Anemia Y Heart Attack (DC) Y Diabetes Y Eye Trauma Y Double Vision N Ocular trauma N Sleep Apnea Y Heart Disease Y Hypertension Y Gynecological HistoryNo gynecological history recorded. Obstetrics History GPAL:G 0 P 0 0 0 0 Past Encounters Encounter ID Performer Location Encounter Start Date Encounter Closed Date Diagnosis/Indication Diagnosis SNOMED-CT Code Diagnosis ICD10 Code Diagnosis Note [id number] YONG ZHU MD OPHTHALMO [facility] [address] ,[address] [place] [address] 06/26/2016 14:57:47 06/28/2016 08:27:08 Proliferative retinopathy due to diabetes mellitus 52749035 E13.3593 Epiretinal membrane 3676 19187 H35.373 Bilateral pseudophakia 9325079077 6027187 Z96.1 bilateral Type 1 albino betes mellitus 84058182 E10.336 [id number] MD JOSEPH FUNG [facility] [address] [address] 07/24/2016 15:44:15 07/24/2016 16:45:12 Delay when starting to pass urine 3286657 R39.11 we discussedc onsiderati on of cystoscopy with possible urethral dilation. Thus just we perform this under sedation. We will arrange for this later this month. Retention of urine 12947 4002 R33.9 Microscopic hematuria 19 6394507 R31.21 [id number] TONY LYNN MD SURGERY SCHEDULE [address] [place] [address] 08/07/2016 07:54:29 08/07/2016 07:57:18 [id number] MD [facility]PH [facility] [address] [place] [address] 08/28/2016 13:38:12 08/30/2016 15:09:08 Urethral stenosis 318124461 N35.9 Perimenopa usal atrophic vaginitis 021490913 N95.2 She will try Estrace cream if economical ly feasible. She will follow-up with me in 3-4 months and Karen [id number] CHRIS ROCHA APRN RHEUMATOL OG [facility] [address] [place] [address] 09/30/2016 13:13:19 10/01/2016 10:18:02 Anti-nuclear factor detected 161796256 R76.8 66 year old female presents with photosensi tivity and fatigue x 3 months .Further was found to have a positive MOON. Rheumatoid factor negative. CK leve normal. ESR normal at 11 mm/hr.clin ically on exam she has No features of joint synovitis, effusions or limitation s in ROM noted. Muscle strength is also normal. Rest of the systems exam and MSK exam is normal. I do not see clinical features of an autoimmune disease. In particular no features of inflammato ry arthritis or inflammato ry muscle disease noted.Shaw bryan due to symptoms of fatigue, photosensi tivity as well as positive MOON she is concerned about lupus, I reassured patient that I do not see features of autoimmune disease however I will obtain further labs studies today.I will notify her of results and if abnormal will have her follow up accordinglee pena. [id number] CHRIS ROCHA APRN [facility] [address] [place] [address] 01/31/2017 15:37:06 01/31/2017 16:35:06 Anti-nuclear factor detected 834120156 R76.8 Patient complains of fatigue, joint pains, hx of mouth sores, and rash on face.She has history of positive MOON 1:640 speckledCl inically she has what appears to be rosacea as rash is not consistent with malar rash seem with lupus.No acute synovitis or effusions. I will obtain further labs today as detailed below.Will notify her of results through portal.Dis cussed that we will need to continue to clinically monitor.Alexys jameson offered reassuranc e today. [id number] KATHI LOPEZ MD NEUROSURG JOZEFJolene [facility] [address] [place] [address] 05/12/2017 13:25:54 05/12/2017 14:32:04 Spondylolisthesis 592780828 M43.10 Minutes spent reviewing images, discussing the diagnosis and coordinati ng care: 30 min [id number] YONG ZHU MD [place]THALMO [place] [address] [place] [address] 08/12/2017 13:35:44 08/13/2017 09:21:54 Type 1 diabetes mellitus 69771348 E10.319 Quiescent proliferative retinopathy due to diabetes mellitus 128214197 E11.3599 Bilateral pseudophakia 8493645922 2481704 Z96.1 bilateral Secondary glaucoma 14610 004 H40.52X1 [id number] YONG ZHU MD OPHTHALMO [place] [address] [place] [address] 01/22/2018 15:08:21 01/23/2018 10:13:59 Primary open angle glaucoma 83755431 H40.1131 Type 1 albino betes mellitus 13587468 E10.37X1 ou Myopic astigmatism 90873 4005 H52.209 Presbyopia 05235799 H52. 4 Bilateral pseudophakia 8473495861 1510785 Z96.1 bilateral Non-high-r isk proliferative retinopathy with clinically significant macular edema due to diabetes mellitus 234419799 E11.3519 [id number] YONG ZHU MD OPHTHALMO [place] [address] [place], [place] [address] 05/21/2018 15:40:26 05/22/2018 11:49:46 Primary open angle glaucoma 79021592 H40.1131 Type 1 albino betes mellitus 70925797 E10.37X1 ou Quiescent proliferative retinopathy due to diabetes mellitus 575771136 E11.3599 Macular ed merlyn due to diabetes mellitus 802815445 E11.340 [id number] YONG ZHU MD OPHTHALMO [place] [address] [place] [id number] 10/08/2018 12:53:43 10/09/2018 11:51:53 Primary open angle glaucoma 06514834 H40.1131 Bilateral pseudophakia 9524522117 5168339 Z96.1 bilateral Proliferat steven retinopathy due to type 1 diabetes mellitus 6629731755 9101 E10.3599 bilateral [id number] YONG ZHU MD OPHTHALMO [place] [address] [place], [place] [address] 08/16/2019 14:02:22 08/17/2019 15:46:45 Type 1 diabetes mellitus 11329736 E10.37X1 ou High risk proliferative retinopathy without macular edema due to diabetes mellitus 610857993 E11.3599 ou Epiretinal membrane 3676 19825 H35.373 left Blurring o f visual image 463009338 H53.8 right [id number] YONG ZHU MD OPHTHALMO [facility] [address] [place], [place] [address] 02/14/2020 14:06:52 02/14/2020 16:15:31 Adverse reaction to drug 34655093 T50.905A Modafinil (simlar ti ritalin) Type 1 albino betes mellitus 77011175 E10.37X1 ou Proliferat steven retinopathy due to type 1 diabetes mellitus 0858813100 9101 E10.3599 bilateral Quiescent proliferative retinopathy due to diabetes mellitus 225321942 E11.3599 ou Bilateral pseudophakia 8628743936 7267223 Z96.1 bilateral Myopic astigmatism 64005 4005 H52.209 od Presbyopia 53970249 H52. 4 [id number] GILLES COOPER MD OPHTHALMO [facility] [address] [place] [id number] 08/17/2020 12:36:13 08/17/2020 16:03:23 Primary open angle glaucoma 66886596 H40.1132 iop elevated today but pt not sure if got enough drop. states iop runs high teens usually rec continue latanopros t qhs ou baseline rnfl today shows sev thinning but cold be d/t PRP nerves appear okay ou rec 3 mo iop check, hvf - 10-2 (previous constricti on d/t prp) Pseudophakia 44648474 Z9 6.1 Proliferat steven retinopathy due to type 1 diabetes mellitus 0646169940 9101 E10.3599 continue to follow with TANESHA. [id number] GILLES COOPER MD OPHTHALMO [facility] [address] [place] [id number] 11/22/2020 15:00:00 11/22/2020 16:18:12 Primary open angle glaucoma 85825252 H40.1132 iop better borderline oshvf today 10=2 relatively okay todayconti nue latanoprst qhs6 mo complete, rnfl [id number] GILLES COOPER MD OPHTHALMO [place] [address] [place] [address] 05/24/2021 15:33:06 05/24/2021 16:45:49 Primary open angle glaucoma 69081735 H40.1132 iop better borderline os - stablernfl with stable thinning ou todayconti nue latanopros t qhs ou6 mo hvf 10-2 and iop check Proliferat steven retinopathy due to type 2 diabetes mellitus 9717790818 109 E11.3599 oct shows possible cysts today - rec f/u with TANESHA as scheudled [id number] GILLES COOPER [facility] [address] ,[address] [place] [id number] 10/08/2021 15:09:27 10/08/2021 16:47:33 Proliferative retinopathy due to type 2 diabetes mellitus 0668807286 109 E11.3599 oct shows conitnued cysts os - rec f/u with RAKod no swellingof fered mr today - no significan t changes Primary op en angle glaucoma [id number] H40.1132 iop borderline f/u as scheudled for hvf 10-2 Corneal dystrophy 048386 4 H18.509 banding od - still not in vis axis but may be progressin g - obs for now, consider chelation in future [id number] GILLES COOPER MD OPHTHALMO RICKEY [address] ,[address] [place] [address] 05/01/2022 09:30:33 05/01/2022 12:07:24 Proliferative retinopathy due to type 2 diabetes mellitus 2899989377 109 E11.3599 continue f/u with TANESHA Primary op en angle glaucoma 03836965 H40.1132 needs hvf 10-2 on return Corneal dystrophy 959588 4 H18.509 banding od - still not in vis axis but may be progressin g - obs for now, consider chelation in future Conjunctivitis 2720601 H 10.013 one drop qid x2 weekswash handsdont share hygiene objects2 week conj check [id number] GILLES COOPER MD OPHTHALMO LOGY [address] [place] [address] 05/14/2022 13:34:14 05/14/2022 15:40:58 Primary open angle glaucoma 79413868 H40.1132 hvf 10-2 today stablecont inue latanopros tqhs ou6 mo complete, rnfl, oct mac Acute conj unctivitis caused by chemical 7735785427 71195 H10.213 resolved, obs for now [id number] GILLES COOPER MD OPHTHALMO LOGY [address] [place] [address] 01/06/2023 07:51:36 01/06/2023 10:23:45 Long-term drug therapy 977136307 Z79.899 just started margaret - one pill/dayma x daily dose per body weight is 331mg/day - recommend stay under this dose.rec f/u with TANESHA for 2nd opinion given significan t diabetic eye diseasedis cussed risks of plaquenil usage and vision loss. Primary op en angle glaucoma 31308192 H40.1132 IOP good todayconti nue latanopros t qhs ouRnfl today shows thinning os>od6 mo iop check, hvf 10-2 Proliferat steven retinopathy due to type 2 diabetes mellitus 5336481487 109 E11.3599 continue f/u with RAKfew cystic changes on oct todayglc control recommende d. [id number] GILLES COOPER MD OPHTHALMO LOGY [address] ,[address] [place] [address] 04/16/2023 12:56:15 04/16/2023 14:13:30 Proliferative retinopathy due to type 2 diabetes mellitus 9386136994 109 E11.3599 continue f/u with RAKoct today shows increased cme od - likely cause of subjective vis declinerec f/u with TAENSHA for thisrec consider hand/stand magnifier Primary op en angle glaucoma 77969498 H40.1132 iop high today -rec compliance with dropsconti nue latanopros t qhs ourecheck iop 2 mo with hvf 10-2 Bilateral pseudophakia 0185126869 3072383 Z96.1 os has some phacodones is today - not sure if present previously - monitormay call back for lined bf Calcific b and keratopathy 166663387 H18.429 discussed chelation in future [id number] GILLES COOPER MD OPHTHALMO LOGY [address] ,[address] [place] [address] 06/16/2023 13:49:36 06/16/2023 15:10:32 Primary open angle glaucoma 59554685 H40.1132 iop high today but betterrec add brimonidin e bid ou3 mo iop checkhvf today with defects ou - mild decline of ourec f/u with TANESHA for eval retina/margaret quenil Long-term drug therapy 636524938 Z79.[address] started margaret - one pill/dayma x daily dose per body weight is 331mg/day - recommend stay under this dose.rec f/u with TANESHA for 2nd opinion given significan t diabetic eye diseasedis cussed risks of plaquenil usage and vision loss. [id number] GILLES COOPER MD OPHTHALMO LOGY [address] ,[address] [place] [address] 09/22/2023 12:42:06 09/22/2023 13:28:26 Primary open angle glaucoma 81818690 H40.1132 iop continues to improvecon tinue latanopros t qhs ou, brimonidin e bid ourecheck 5 mo complete, rnfl Calcific b and keratopathy 791372863 H18.429 discussed with patientrec referral to Dr. 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 Prefers lotions/cr eams over sprays. Rec moisturisi ng with CeraVe or Cetaphil cream after showering Neoplasm o f uncertain behavior of skin 07007028 D48.5 Biopsy recommende d today.- Verbal consent given by patient. Disc pain, scar, bleeding, infection and possible need for more treatment. Disc specimen will be sent to pathology- Written wound instructio ns were provided to patient.- Patient was told that they should receive results in 2 weeks via portal or telephone. - If they have not received results in two weeks, they were instructed to call. Actinic keratosis 007 L57.0 Precancero us lesion(s). Will LN2 today.Can leave a white discolorat ion in the areas when LN2 is performed. Follow-up if lesion(s) persists or do not resolve. Prurigo nodularis 248065 00 L28.1 Lean to PN.Try not to pick lesions. Discussed treatment with topical steroid.Rx sent for Clobetasol 0.05% cream to use BID for up to two weeks thn limit use to weekends onlyIf areas do not improve, can discuss treatment further Has scheduled appointmen t with Dr. Hunt for further discussion Diabetic foot ulcer 3710 35291 E13.621 Patient sees investigator cash shortage for this lesion.Rec continuing care with investigator cash shortage .If not improving, please follow-up. [id number] OCTAVIA PICKERING MD [address] [address] 12/29/2023 15:41:57 12/29/2023 16:14:24 Senile purpura 52840607 D69.2 Thinning of the skin due to chronic sun damage. Makes bruising easier as blood vessels are closer the the surface.Re c using OTC CeraVe AM sunscreen on face daily.Rec moisturizi ng with OTC Cetaphil Cream daily.No overt rash today. Actinic damage and Sks noted. Squamous c ell carcinoma of upper extremity 178244165 C44.622 Bx on 11/03/2023 proven SCC on right handPath #: [id number]. She has Mohs scheduled 01/13/2024 .Advised to keep Mohs appointmen t. Seborrheic keratosis 394 381583 L82.1 Benign over growths of skin. Reassuranc e given. Wound of skin 048592540 T14.8XXA R wrist has focal desquamati on that is c/w with healing skin at this point. She does have f/u in Jan and can be reassessed if not resolved. 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 Prefers lotions/cr eams over sprays.Fol low up in 6 months for a full skin exam. History of malignant neoplasm of skin 921763797 Z85.828 Scar is clear. Well healed scar. No evidence of recurrence . Prurigo nodularis 467122 00 L28.1 Lean to PN.Try not to pick lesions. Continue Clobetasol 0.05% cream to use BID for up to two weeks thn limit use to weekends onlyIf areas do not improve, can discuss treatment further. Stasis dermatitis 020038 05 I87.2 JAS negativeVe nous stasis. Vascular changes.Re commend to moisturize legs everyday with OTC Cetaphil or Cereve Moisturizi ng Cream.Rx sent for Clobetasol 0.05% ointment to AA BID for up to 2 weeks. 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 Neoplasm o f uncertain behavior of skin 99440767 D48.5 Biopsy recommende d today. - Verbal consent given by patient. Disc pain, scar, bleeding, infection and possible need for more treatment. Disc specimen will be sent to pathology - Written wound instructio ns were provided to patient. - Patient was told that they should receive results in 2 weeks via portal or telephone. - If they have not received results in two weeks, they were instructed to call. Actinic keratosis 471960 007 L57.0 Precancero us lesion(s). Also consider PNDiscusse d biopsy vs [id number] LN2 today.Can leave a white discolorat ion in the areas when LN2 is performed. Follow-up if lesion(s) persists or do not resolve. Health Concerns Section Related Observation LastModified by Organization Detai ls LastModified Time None Recorded Concern Status LastModified by Organization Details LastModified Time None Recorded Advance Directives Directive None Recorded Payers Insurance Date Sequence Insurance Name Policy Number Policy Byrne Covered Member ID Byrne Member ID Guarantor Name 10/02/2021 1 [place] [id number] Michelle Felipe [id number] Michelle Felipe 07/08/2024 1 [facility] (MEDICARE REPLACEMENT/A DVANTAGE - PPO) [id number] Michelle Felipe [id number] Michelle Felipe Notes Date Note Type Note Provider Name and Address Organization Details Recorded Time 10/30/2023 text/html I am here for a one spot.Areas of concern: right handReports: raised bump that is scabbed- other spots she would like checked No history of skin cancerNew patient GUERRERO TRAYLOR PA-C [address] [place], [address], [facility] 11/03/2023 08:16:11 12/29/2023 text/html I am here for a spot check R Hand-bx proved SCCpt reports scabs over and falls off L handpt reports scaling, R armCome and go weeks to monthspt reports raised bumps June MD LADAN [address] [place], [address], [facility] 12/30/2023 14:49:58 07/05/2024 text/html I am here for a skin checkRed, dry skin on arms and legsScabs on shoulders & back History of SCCR hand UGERRERO TRAYLOR PA-C [address] [place], [address], [facility] 07/06/2024 10:26:15 OBGyn Episode No OBEpisode recorded.
--- OUTSIDE RECORDS SUMMARY | 2024-08-30 13:05 | XMS_ITS | Encounter Summary ---
Author Organization [facility] Address [address] [place] [address] Care Team Providers Care Metalizer Name Role Phone Alisa Kunz DO Primary Care Provider Laura Albright MUSEUM TOUR GUIDE Unavailable Unavailable Balwinder Vale Unavailable Unavailable Kodi Bustos DO Unavailable [phone] Sujit Arriola MD Unavailable [phone] HatLaura navas MUSEUM TOUR GUIDE Unavailable Unavailable Sujit Reyes MD Unavailable [phone] Zully Caldwell MUSEUM TOUR GUIDE Unavailable Unavailable HatfulLaura howrad MUSEUM TOUR GUIDE Unavailable Unavailable HatfulLaura howard MUSEUM TOUR GUIDE Unavailable Unavailable Tanya Powell Unavailable [phone] Sarah Reyes MUSEUM TOUR GUIDE Unavailable Unavailable Ekaterina Gómez Unavailable Unavailable Zully Caldwell MUSEUM TOUR GUIDE Unavailable Unavailable Ekaterina Gómez Unavailable Unavailable Patricia Yañez MUSEUM TOUR GUIDE Unavailable Unavailab le Reason for Visit * Reason Comments Med Refill Encounter Details Date Type Department Care Team (Late st Contact Info) Description 03/18/2022 Refill [facility] Internal Medicine [address], [address] [place] [address] Alisa Kunz DO [address] [place] [address] Social History Tobacco Use Types Packs/Day Years Used Date Smoking Tobacco: Never Smokeless Tobacco: Never Alcohol Use Standard Drinks/Week Comments Yes 5 (1 standard drink = 0.6 oz pur e alcohol) Nightly AUDIT-C Answer Date Recorded Q1: How often do you have a drink containing alcohol? 4 or more times a week 09/07/2020 Q2: How many drinks containi ng alcohol do you have on a typical day when you are drinking? 3 or 4 Q3: How often do you have si x or more drinks on one occasion? Never 09/07/2020 PHQ-2 Answer Date Recorded Patient Health Questionnaire-2 Score 0 02/20/2022 Comments No Sex and Gender Information Value Date Recorded Sex Assigned at Female 11/01/2020 9:33 PM EDT Legal Sex Female 8:14 PM EDT Gender Identity Female 11/01/2020 9:33 PM EDT Sexual Orientation Straight 11/01/2020 9: 33 PM EDT COVID-19 Exposure Response Date Recorded In the last 10 days, have yo u been in contact with someone who was confirmed or suspected to have Coronavirus/COVID-19? No / Unsure 03/14/2022 6:28 PM EST documented as of this encounter Miscellaneous Notes * Telephone Encounter - Alisa Kunz DO - 03/18/2022 2:57 PM EST PDMP reviewed and appropriate. Refilled. documented in this encounter Plan of Treatment Upcoming Encounters Date Type Department Care Team (Late st Contact Info) Description 09/08/2024 11:20 AM EDT Office Visit [facility] Internal Medicine [address] [place] [address] Alisa Kunz DO [address] [place] [address] 10/07/2024 4:00 PM EDT Appointment Cardiac Imaging [address] [place] [address] 10/14/2024 4:00 PM EDT Office Visit [facility] Medicine Specialties [address], [address] [place] [address] Lavern Shoemaker MD [address] [place] [id number] 10/27/2024 1:40 PM EDT Office Visit [facility] Endocrinology [address] [place] [address] Anne-Marie Kolb, SPORTS STATISTICIAN [address] [place] [address] 11/29/2024 10:20 AM EDT Office Visit [facility] Internal Medicine [address], [address] [place] [address] Alisa Kunz, DO [address] [place] [address] 02/02/2025 10:30 AM EST Office Visit [facility] Medicine Specialties [address], [address] [place] [address] Sadiq Osborne, SHANA [address] [place], [place] [id number] documented as of this encounter Visit Diagnoses Not on filedocumented in this encounter Additional Health Concerns Infection Onset Date Last Indicated Resolved Time COVID-19 Rule-Out 11/12/2022 11/12/2022 11/13/2022 2:25 AM EDT Respiratory Rule-Out 11/12/2022 11/13/2022 023 3:08 AM EDT Gastrointestinal Rule-Out 11/12/2022 11/13/2022 10:11 AM EDT C. difficile Rule-Out 11/12/2022 11/13/20222022 10:11 AM EDT COVID-19 Rule-Out 01/27/2023 01/27/2023 01/27/2023 6:16 PM EST Respiratory Rule-Out 01/27/2023 01/27/2023 023 8:11 PM EST Haemophilus influenza Comment:Pt had resp panel 01/27 that was negative 01/27/2023 01/27/2023 01/30/2023 6:[address] Haemophilus influenza 01/27/2023 01/27/20232023 5:06 PM EDT COVID-19 Rule-Out 07/24/2023 07/24/2023 07/24/2023 9:13 PM EDT Enteropathogenic E. coli (EPEC) 10/20/2023 02/02/2024 2:44 PM EST COVID-19 Rule-Out 01/29/2024 01/29/2024 01/30/2024 2:52 AM EST Respiratory Rule-Out 01/29/2024 01/30/2024 024 4:00 AM EST COVID-19 Rule-Out 04/18/2024 04/18/2024 04/18/2024 2:45 PM EST Influenza Comment:05/14/24 test resulted not detected 04/18/2024 04/18/2024 05/14/2024 8:[address] COVID-19 Rule-Out 04/29/2024 04/30/2024 04/30/2024 10:06 AM EST Respiratory Rule-Out 04/29/2024 04/29/2024 025 2:10 AM EST Respiratory Rule-Out 05/13/2024 05/13/2024 025 1:12 AM EST COVID-19 Rule-Out 05/14/2024 05/14/2024 05/14/2024 7:33 AM EST Gastrointestinal Rule-Out 05/16/2024 05/16/2024 2:41 PM EDT C. difficile Rule-Out 05/16/2024 05/16/20242024 1:59 PM EDT Influenza 05/18/2024 05/18/2024 05/19/2024 5:13 PM EDT Influenza 05/20/2024 05/20/2024 05/23/2024 10:0 7 AM EDT Influenza 05/25/2024 05/25/2024 05/25/2024 9:56 AM EDT Influenza 05/25/2024 05/25/2024 06/22/2024 9:54 PM EDT COVID-19 Rule-Out 06/29/2024 06/29/2024 06/29/2024 1:39 PM EDT Respiratory Rule-Out 06/29/2024 06/29/2024 025 6:32 PM EDT Assessment Noted Time A fall risk assessment has been complete d for the patient 02/20/2022 1:51 PM EST documented as of this encounter Care Teams Metalizer Relationship Specialty Start Date End Date Alisa Kunz DO [address] [place] [address] PCP - General Internal Medicine 03/13/21 Laura Albright LPN [employer] [address] TCM Nurse 08/30/22 09/27/22 Balwinder dominique [address] [address] Community Health Worker Aircraft Electronics Technical Officer 08/30/22 09/06/22 Kodi Bustos DO [address] [address] Surgeon Cardiothoracic Surgery 11/06/22 Sujit Arriola MD [address] [place] [address] Consulting Physician Pulmonary Disease 11/06/22 Laura Albright LPN [employer] [place] [address] TCM Nurse 12/02/22 01/01/23 Sujit Reyes MD [address] [place] [address] Referring Physician 12/04/22 Zully Caldwell LPN [employer] [place] [address] TCM Nurse 02/03/23 03/05/23 Laura Albright LPN [employer] [address] TCM Nurse 08/05/23 09/04/23 Laura Albright LPN VALUE-BASED TRANSFORMATION PROGRAM [place] [id number] TCM Nurse 02/17/24 03/18/24 Tanya Powell [address] [facility] [address] [place] [address] Registered Nurse 04/02/24 07/01/24 Sarah Reyes LPN TCM Nurse 05/27/24 06/26/24 Ekaterina Gómez Registered Dietetic Technician Aircraft Electronics Technical Officer 07/14/24 07/14/24 Zully Caldwell LPN [employer] [place] [address] TCM Nurse 07/16/24 08/15/24 Ekaterina Gómez Registered Dietetic Technician Aircraft Electronics Technical Officer 08/16/24 08/16/24 Patricia Yañez LPN TCM Nurse 08/25/24 documented as of this encounter
--- OUTSIDE RECORDS SUMMARY | 2024-08-30 13:05 | XMS_ITS ---
Author Organization [facility] Address [address] [place] [address] Care Team Providers Care Staff Sonographer Name Role Phone Ze Alisa Wild DO Primary Care Provider [phone] Kodi Bustos DO Unavailable [phone] Sujit Arriola MD Unavailable [phone] Sujit Reyes MD Unavailable [phone] Patricia Yañez LPN Unavailable Unavailab le LINK Program Status:Closed (Closed) Start date:08/16/2024 Enrollment reason:Identified using hospital discharge data End date:08/16/2024 Close reason:Patient Declined Continued Care and Services Coordination
--- OUTSIDE RECORDS SUMMARY | 2024-08-30 13:05 | XMS_ITS | Encounter Summary ---
Author Organization [facility] Address [address] [place] [address] Care Team Providers Care [employer] Planners Name Role Phone Alisa Kunz DO Primary Care Provider Kodi Bustos DO Unavailable [phone] Sujit Arirola MD Unavailable [phone] Sujit Reyes MD Unavailable [phone] Zully Caldwell LPN Unavailable Unavailable Reason for Visit * Reason Onset Date Comments HCN Clinical Concern/Question 08/06/2024 Encounter Details Date Type Department Care Team (Late st Contact Info) Description 08/06/2024 Telephone [facility] Internal Medicine [address] [place] [address] Alisa Kunz DO [address] [place] [address] HCN Clinical Concern/Question Social History Tobacco Use Types Packs/Day Years [...] How often do you attend chur or mu-ism services? 1 to 4 times per year 08/30/2022 Do you belong to any clubs o r organizations such as zoroastrianism groups, unions, fraternal or athletic groups, or [...] Recorded Patient Health Questionnaire-2 Score 0 08/04/2024 [facility] of Occupat [...] place to sleep or slept in a detention (including now)? No 12/30/2023 PHQ-9 Answer Date [...] any time in the past 12 m [facility], were you homeless or living in a detention (including now)? No 05/27/2024 CAGE ASSESSMENT Answer [...] first t anselmo in the morning (EYE-RN CVOR) to steady your nerves or to get rid of a hangover? 0 07/12/2024 CAGE Questionnaire Score 0 025 Utilities Answer Date Recorded In the past 12 months has th e [employer], gas, oil, or water [employer] threatened to shut off services in your [...] encounter Miscellaneous Notes * Telephone Encounter - Shannen Stephens - 08/09/2024 9:41 AM EDT Called pt advised Dr Kunz is booked up pt declined apt with different provider in the office * Telephone Encounter - Lea Felipe - 08/06/2024 2:42 PM EDT Clinical Concern/Question Reason for Call: Pt calling asking to see MD due to a knot on her chest from a procedure done in the ER.Please call Best contact number: [phone] (mobile) Optimal time of day to reach caller: ANYTIME Additional comments/information from caller: None Note: Please do not reply to this message. Follow-up communication and further actions as a result of this message need to be communicated with the patient directly, if the patient is not active onMyChart. If the patient is active on MyChart, they will receive notification of the communication/outcome via SIPX. * Telephone Encounter - Madison Sheikh - 08/06/2024 10:01 AM EDT Clinical Concern/Question Reason for Call: [employer] calling to ask if pts PCP is able to order a Six Minute Oxygen Exertion test. Please call to advise. A fax will also be sent requesting this. Best contact number: Other: [phone] Optimal time of day to reach caller: ANYTIME Additional comments/information from caller: None Note: Please do not reply to this message. Follow-up communication and further actions as a result of this message need to be communicated with the patient directly, if the patient is not active onMyChart. If the patient is active on MyChart, they will receive notification of the communication/outcome via Eduvanthart. documented in this encounter Plan of Treatment Upcoming Encounters Date Type Department Care Team (Late st Contact Info) Description 09/08/2024 11:20 AM EDT Office Visit [facility] Internal Medicine [address] [place] [address] Alisa Kunz, DO [address] [place] [address] 10/07/2024 4:00 PM EDT Appointment Cardiac Imaging [address] [place] [address] 10/14/2024 4:00 PM EDT Office Visit [facility] Medicine Specialties [address] [place] [address] Lavern Shoemaker MD [address] [place], [place] [id number] 10/27/2024 1:40 PM EDT Office Visit [facility] Endocrinology [address] [place] [address] Anne-Marie Kolb, LOG SKIDDER [address] [place] [address] 11/29/2024 10:20 AM EDT Office Visit [facility] Internal Medicine [address] [place] [address] Alisa Kunz DO [address] [place] [address] 02/02/2025 10:30 AM EST Office Visit [facility] Medicine Specialties [address] [place] [address] Sadiq Osborne, SHANA [address] [place] [address] documented as of this encounter Visit Diagnoses Not on filedocumented in this encounter Additional Health Concerns Assessment Noted Time PHQ-9 Depression Total Score: 8 07/22/19 25 9:23 AM EDT A fall risk assessment has been complete d for the patient 08/04/2024 10:41 AM EDT A Body Mass Index follow-up plan has been documented for the patient 08/04/2024 3:14 PM EDT documented as of this encounter Care Teams [employer] Planners Relationship Specialty Start Date End Date Alisa Kunz DO [address] [place] [address] PCP - General Internal Medicine 03/13/21 Kodi Bustos DO [address] [address] Surgeon Cardiothoracic Surgery 11/06/22 Sujit Arriola MD [address] [place] [address] Consulting Physician Pulmonary Disease 11/06/22 Sujit Reyes MD [address] [place] [address] Referring Physician 12/04/22 Zully Caldwell LPN VALUE[employer]ED [place] [address] [facility] Nurse 07/16/24 08/15/24 documented as of this encounter
--- OUTSIDE RECORDS SUMMARY | 2024-08-30 13:05 | XMS_ITS | Encounter Summary ---
Author Organization Healthcare Address [address] [place] [address] Care Team Providers Care Med Aide Name Role Phone Alisa Kunz DO Primary Care Provider [phone] Kodi Bustos DO Unavailable [phone] Sujit Arriola MD Unavailable [phone] Sujit Reyes MD Unavailable [phone] Zully Caldwell LPN Unavailable Unavailable Encounter Details Date Type Department Care Team (Latest Contact Info) Description 08/14/2024 Travel Social History Tobacco Use Types Packs/Day Years [...] often do you attend chur ch or episcopal services? 1 to 4 times per year 08/30/2022 Do you belong to any clubs o r organizations such as mosque groups, unions, fraternal or athletic groups, or [...] Recorded Patient Health Questionnaire-2 Score 0 08/04/2024 [employer] of Occupat ional Health - Occupational Stress [...] any time in the past 12 m [facility], were you homeless or living [...] money to buy more. Never true 08/16/19 Within the past 12 months, t he [...] any time in the past 12 m [facility], were you homeless or living in a mcfp (including now)? No 08/15/2024 CAGE ASSESSMENT Answer [...] drink first t anselmo in the morning (EYE-GUEST RELATIONS EXECUTIVE) to steady your nerves or to get rid of a hangover? 0 08/14/2024 CAGE Questionnaire Score 0 025 Utilities Answer Date Recorded In the past 12 months has th e [employer], gas, oil, or water [employer] threatened to shut off services in your [...] Date of Assessment Author No Risk Indicated 08/14/2024 3:38 PM EDT Sarah Sanchez RN * Question Answer Date of Assessment Author 1. Wish to be (Past 1 Month) No 025 3:38 PM EDT Odilia Sanchez, EVITA 2. Non-Specific Active Suici dillon Thoughts (Past 1 Month) No 08/14/2024 3:38 PM EDT Odilia Sanchez, RN 6. Suicidal Behavior (Lifetime) No 3:38 PM EDT Odilia Sanchez RN documented as of this encounter Plan of Treatment Upcoming Encounters Date Type Department Care Team (Late st Contact Info) Description 09/08/2024 11:20 AM EDT Office Visit [facility] Internal Medicine [address], [address] [place] [address] Alisa Kunz, [address] [place] [address] 10/07/2024 4:00 PM EDT Appointment Cardiac Imaging [address] [place] [address] 10/14/2024 4:00 PM EDT Office Visit [facility] Medicine Specialties [address], [address] [place] [phone] Lavern Shoemaker MD [address] [place] [address] 10/27/2024 1:40 PM EDT Office Visit [facility] Endocrinology [address] [place] [address] Anne-Marie Kolb L, ICT QUALITY ASSURANCE ENGINEER [address] [facility] 125 [place] [address] 11/29/2024 10:20 AM EDT Office Visit [facility] Internal Medicine [address], [address] [place] [address] Alisa Kunz DO [address] [place] [address] 02/02/2025 10:30 AM EST Office Visit [facility] Medicine Specialties [address], [address] [place] [phone] Sadiq Osborne MBBS [address] [place], [place] [phone] documented as of this encounter Visit Diagnoses [...] documented as of this encounter Care Teams Med Aide Relationship Specialty Start Date End Date Alisa Kunz DO [address] [place] [address] PCP - General Internal Medicine 03/13/21 Kodi Bustos DO [address] [address] Surgeon Cardiothoracic Surgery 11/06/22 Sujit Arriola MD [address] [place] [address] Consulting Physician Pulmonary Disease 11/06/22 Sujit Reyes MD [address] [place] [address] Referring Physician 12/04/22 Zully Caldwell, MARYBETH VALUE-BASED [place] [address] TCM Nurse 07/16/24 08/15/24 documented as of this encounter
--- OUTSIDE RECORDS SUMMARY | 2024-08-30 13:05 | XMS_ITS | Encounter Summary ---
Author Organization Healthcare Address [address] [place] [address] Care Team Providers Care Heading Machine Operator Name Role Phone Alisa Kunz DO Primary Care Provider [phone] Kodi Bustos DO Unavailable [phone] Sujit Arriola MD Unavailable [phone] Sujit Reyes MD Unavailable [phone] Zully Caldwell LPN Unavailable Unavailable Encounter Details Date Type Department Care Team (Latest Contact Info) Description 08/15/2024 Travel Social History Tobacco Use Types Packs/Day [...] often do you attend chur ch or taoism services? 1 to 4 times per year 08/30/2022 Do you belong to any clubs o r organizations such as judaism groups, unions, fraternal or athletic groups, or [...] Recorded Patient Health Questionnaire-2 Score 0 08/04/2024 [facility] of Occupat ional Health - Occupational Stress [...] place to sleep or slept in a long term (including now)? No 12/30/2023 PHQ-9 Answer Date [...] any time in the past 12 m [facility], were you homeless or living in a long term (including now)? No 05/27/2024 Humiliation, Afraid, Rape, [...] any time in the past 12 m [facility], were you homeless or living in a long term (including now)? No 08/15/2024 CAGE ASSESSMENT Answer [...] drink first t anselmo in the morning (EYE-MEATCUTTER) to steady your nerves or to get rid of a hangover? 0 08/14/2024 CAGE Questionnaire Score 0 025 Utilities Answer Date Recorded In the past 12 months has th e [employer], gas, oil, or water [employer] threatened to shut off services in your [...] Date of Assessment Author No Risk Indicated 08/15/2024 8:00 PM EDT Laura Cope RN * Question Answer Date of Assessment Author 1. Wish to be (Past 1 Month) No 025 8:00 PM EDT Laura Cope, RN 2. Non-Specific Active Suici dillon Thoughts (Past 1 Month) No 08/15/2024 8:00 PM EDT Laura Cope , RN 6. Suicidal Behavior (Lifetime) No 8:00 PM EDT Laura Cope, EVITA documented as of this encounter Plan of Treatment Upcoming Encounters Date Type Department Care Team (Late st Contact Info) Description 09/08/2024 11:20 AM EDT Office Visit [facility] Internal Medicine [address] [place] [address] Alisa Kunz DO [address] [place] [address] 10/07/2024 4:00 PM EDT Appointment Cardiac Imaging [address] [place] [address] 10/14/2024 4:00 PM EDT Office Visit [facility] Medicine Specialties [address], [address] [place] [address] Lavern Shoemaker MD [address] [place], [place] [phone] 10/27/2024 1:40 PM EDT Office Visit [facility] Endocrinology [address] [place] [address] Anne-Marie Kolb, HAY BALER [address] [facility] 125 [place] [address] 11/29/2024 10:20 AM EDT Office Visit [facility] Internal Medicine [address], [address] [place] [address] Alisa Kunz DO [address] [facility] 304 [place] [address] 02/02/2025 10:30 AM EST Office Visit [facility] Medicine Specialties [address], 2nd [place] [address] Sadiq Osborne, SHANA [address] [place], [place] [phone] documented as of this encounter Visit Diagnoses [...] documented as of this encounter Care Teams Heading Machine Operator Relationship Specialty Start Date End Date Alisa Kunz DO [address] [facility] 304 [place] [address] PCP - General Internal Medicine 03/13/21 Kodi Bustos DO [address] [place] [phone] Surgeon Cardiothoracic Surgery 11/06/22 Sujit Arriola MD [address] [place] [address] Consulting Physician Pulmonary Disease 11/06/22 Sujit Reyes MD [address] [place] [address] Referring Physician 12/04/22 Zully Caldwell, MARYBETH VALUE-[place] [address] TCM Nurse 07/16/24 08/15/24 documented as of this encounter
--- OUTSIDE RECORDS SUMMARY | 2024-08-30 13:05 | XMS_ITS | Encounter Summary ---
Author Organization [facility] Address [address] [place] [address] Care Team Providers Care Apigee Developer Name Role Phone Alisa Kunz DO Primary Care Provider Kodi Bustos DO Unavailable [phone] Sujti Arriola MD Unavailable [phone] Sujit Reyes MD Unavailable [phone] Zully Caldwell LPN Unavailable Unavailable Reason for Visit * Reason Onset Date Comments HCN Clinical Concern/Question 08/12/2024 Encounter Details Date Type Department Care Team (Late st Contact Info) Description 08/12/2024 Telephone [facility] Internal Medicine [address] [place] [address] Alisa Kunz DO [address] [place] [address] HCN Clinical Concern/Question Social History [...] How often do you attend chur or synagogue services? 1 to 4 times per year [...] Recorded Patient Health Questionnaire-2 Score 0 08/04/2024 [facility] of Occupat ional Health - Occupational Stress [...] any time in the past 12 m [facility], were you homeless or living in [...] drink first t anselmo in the morning (EYE-DESKTOP SUPPORT ASSOCIATE) to steady your nerves or to get rid of a hangover? 0 07/12/2024 CAGE Questionnaire Score 0 025 Utilities Answer Date Recorded In the past 12 months has e [employer], [employer], oil, or water [employer] threatened to shut off services in your [...] * Telephone Encounter - Shannen Stephens - 08/12/2024 1:13 PM EDT Spoke to pt and advised of Dr Kunz's message. I also sent it to her on [employer] in a message * Telephone Encounter - Alisa Kunz DO - 08/12/2024 11:16 AM EDT She takes 1 capsule during the day and 3 at night: Can go down to 2 at night for 1 week, 1 at nightfor 1 week, then 1 daily for 1 week, then 1 every other day for 1 week, then stop. * Telephone Encounter - Sofia Hernadez - 08/12/2024 10:57 AM EDT Clinical Concern/Question Reason for Call: pt currently takes Gabapentin but states it isnt helping at all, having leg pain that is keeping her awake at night. Asks for callback to discuss weaning off of the Gabapentin. Best contact number: [phone] Optimal time of day to reach caller: ANYTIME Additional comments/information from caller: None Note: Please do not reply to this message. Follow-up communication and further actions as a result of this message need to be communicated with the patient directly, if the patient is not active onMyChart. If the patient is active on MyChart, they will receive notification of the communication/outcome via MyChart. documented in this encounter Plan of Treatment Upcoming Encounters Date Type Department Care Team (Late st Contact Info) Description 09/08/2024 11:20 AM EDT Office Visit [facility] Internal Medicine [address]rd [place] [address] Alisa Kuzn, DO [address] [place] [address] 10/07/2024 4:00 PM EDT Appointment Cardiac Imaging [address] [place] [address] 10/14/2024 4:00 PM EDT Office Visit [facility] Medicine Specialties [address], [address] [place] [address] Lavern Shoemaker MD [address] [place] [phone] 10/27/2024 1:40 PM EDT Office Visit [facility] Endocrinology [address] [place] [address] Anne-Marie Kolb, BED CONTROL SPECIALIST [address] [place] [address] 11/29/2024 10:20 AM EDT Office Visit [facility] Internal Medicine [address] [place] [address] Alisa Kunz DO [address] [place] [address] 02/02/2025 10:30 AM EST Office Visit [facility] Medicine Specialties [address], [address] [place] [address] Sadiq Osborne, SHANA [address] [place] [address] documented as of this encounter [...] documented as of this encounter Care Teams Apigee Developer Relationship Specialty Start Date End Date Alisa Kunz DO [address] [place] [address] PCP - General Internal Medicine 03/13/21 Kodi Bustos DO [address] [place] [address] Surgeon Cardiothoracic Surgery 11/06/22 Sujit Arriola MD [address] [place] [address] Consulting Physician Pulmonary Disease 11/06/22 Sujit Reyes MD [address] [place] [address] Referring Physician 12/04/22 [facility], Zully R, DERRICK MAN VALUE-BASED [place] [address] TCM Nurse 07/16/24 08/15/24 documented as of this encounter
--- OUTSIDE RECORDS SUMMARY | 2024-08-30 13:05 | XMS_ITS | Encounter Summary ---
Author Organization Healthcare Address [address] [place] [address] Care Team Providers Care Building Repair Maintenance Supervisor Name Role Phone Alisa Kunz DO Primary Care Provider [phone] Kodi Bustos DO Unavailable [phone] Sujit Arriola MD Unavailable [phone] Sujit Reyes MD Unavailable [phone] Zully Caldwell LPN Unavailable Unavailable Reason for Visit * Reason Onset Date Comments Edema 08/06/2024 Shortness of Breath 08/06/2024 Encounter Details Date Type Department Care Team (Late st Contact Info) Description 08/06/2024 Telephone [facility] Medicine Specialties [address] [place] [address] Ami Marley Edema; Shortness of Breath Social History Tobacco Use Types Packs/Day Years [...] How often do you attend chur or pentecostal services? 1 to 4 times per year 08/30/2022 Do you belong to any clubs o r organizations such as jewish groups, unions, fraternal or athletic groups, or [...] Recorded Patient Health Questionnaire-2 Score 0 08/04/2024 [facility] of Occupat ional Health - Occupational Stress [...] any time in the past 12 m [facility], were you homeless or living [...] Have you had a drink first t naselmo in the morning (EYE-FASHION MERCHANDISER) to steady your nerves or to get [...] encounter Miscellaneous Notes * Telephone Encounter - Charo Donaldson - 08/09/2024 12:03 PM EDT Patient called to follow up She states she had to be on her oxygen all night and feels worse this morning than she did before She feels that she needs a chest x-ray I advised that she needs to go to the ER based on her worsening symptoms to be evaluated and get a chest x-ray Though hesitant, she is in agreement * Telephone Encounter - Shabana Hernández RN - 08/06/2024 1:25 PM EDT Advised pt to go to the ED but she states she knows that what she needs to do but isn't going to gobecause last time she wasn't pleased with the brigitte who drained the fluid. Said she wasn't really that bad but just wanted us to be aware of what was going on. Highly suggested again that she go to theED, especially if it gets worse. * Telephone Encounter - Ami Marley - 08/06/2024 1:04 PM EDT Patient called, she is having increased edema, productive cough, chest heaviness/SOB while on O2. She feels her lungs are filling up with fluid documented in this encounter Plan of Treatment Upcoming Encounters Date Type Department Care Team (Late st Contact Info) Description 09/08/2024 11:20 AM EDT Office Visit [facility] Internal Medicine [address]rd [place] [address] Alisa Kunz, DO [address] [place] [address] 10/07/2024 4:00 PM EDT Appointment Cardiac Imaging [address] [place] [address] 10/14/2024 4:00 PM EDT Office Visit [facility] Medicine Specialties [address] [place] [address] Lavern Shoemaker MD [address] [place] [address] 10/27/2024 1:40 PM EDT Office Visit [facility] Endocrinology [address] [place] [address] Anne-Marie Kolb L, PROJECTION TECHNICIAN [address] [facility] 125 [place] [address] 11/29/2024 10:20 AM EDT Office Visit [facility] Internal Medicine [address], [address]rd [place] [address] Alisa Kunz, DO [address] [place] [address] 02/02/2025 10:30 AM EST Office Visit [facility] Medicine Specialties [address], [address] [place] [address] Sadiq Osborne, SHANA [address] [place] [address] documented as of this encounter [...] documented as of this encounter Care Teams Building Repair Maintenance Supervisor Relationship Specialty Start Date End Date Alisa Kunz DO [address] [place] [address] PCP - General Internal Medicine 03/13/21 Kodi Bustos DO [address] [address] Surgeon Cardiothoracic Surgery 11/06/22 Sujit Arriola MD [address] [place] [address] Consulting Physician Pulmonary Disease 11/06/22 Sujit Reyes MD [address] [place] [address] Referring Physician 12/04/22 Zully Caldwell LPN VALUE-BASED [place] [address] TCM Nurse 07/16/24 08/15/24 documented as of this encounter
--- OUTSIDE RECORDS SUMMARY | 2024-08-30 13:05 | XMS_ITS | Encounter Summary ---
Author Organization [facility] Address [address] [place] [address] Care Team Providers Care Prenatal Teacher Name Role Phone Alisa Kunz DO Primary Care Provider Kodi Bustos DO Unavailable [phone] Sujit Arriola MD Unavailable [phone] Sujit Reyes MD Unavailable [phone] Ekaterina Gómez Unavailable Unavailable Reason for Visit * Reason Comments Link Encounter Details Date Type Department Care Team (Late st Contact Info) Description 08/16/2024 Patient Outreach [facility] [address] [place] [address] Ekaterina Gómez Link Social History Tobacco Use Types Packs/Day Years [...] often do you attend chur ch or buddhism services? 1 to 4 times per year 08/30/2022 Do you belong to any clubs o r organizations such as anabaptism groups, unions, fraternal or athletic groups, or [...] Recorded Patient Health Questionnaire-2 Score 0 08/04/2024 [facility] of Occupat ional Health - Occupational Stress [...] place to sleep or slept in a halfway (including now)? No 12/30/2023 PHQ-9 Answer Date [...] any time in the past 12 m [facility], were you homeless or living in a halfway (including now)? No 05/27/2024 Humiliation, Afraid, Rape, [...] any time in the past 12 m [facility], were you homeless or living in a halfway (including now)? No 08/15/2024 CAGE ASSESSMENT Answer [...] drink first t anselmo in the morning (EYE-FURNACE TAPPER) to steady your nerves or to get rid of a hangover? 0 08/14/2024 CAGE Questionnaire Score 0 025 Utilities Answer Date Recorded In the past 12 months has th e [employer], gas, oil, or water company threatened to [...] Assessment Author No Risk Indicated 08/16/2024 8:00 AM EDT Alicia Licea RN * Question Answer Date of Assessment Author 1. Wish to be (Past 1 Month) No 025 8:00 AM EDT Alicia Licea RN 2. Non-Specific Active Suici dillon Thoughts (Past 1 Month) No 08/16/2024 8:00 AM EDT Mehul Licea RN 6. Suicidal Behavior (Lifetime) No 8:00 AM EDT Alicia Licea RN documented as of this encounter Miscellaneous Notes * Progress Notes - Ekaterina Gómez - 08/16/2024 3:55 PM EDT LINK ATUL met with pt bedside for introductions and review of the LINK program. Pt reports she is interested in having someone cook/clean for her and LINK ATUL reviewed that LINK nurses are available to provide care coordination and education on medications and health conditions, but are unable to cook/clean. Pt declined to enroll in LINK program. LINK ATUL provided her card for f/u questions. SW to close. Ekaterina Gómez LINK Navigator [email or web address] documented in this encounter Plan of Treatment Upcoming Encounters Date Type Department Care Team (Late st Contact Info) Description 09/08/2024 11:20 AM EDT Office Visit [facility] Internal Medicine [address]rd [place] [address] Alisa Kunz, DO [address] [facility] [address] [place] [address] 10/07/2024 4:00 PM EDT Appointment Cardiac Imaging [address] [place] [address] 10/14/2024 4:00 PM EDT Office Visit [facility] Medicine Specialties [address] [place] [address] Lavern Shoemaker MD [address] [place] [address] 10/27/2024 1:40 PM EDT Office Visit [facility] Endocrinology [address] [place] [address] Anne-Marie Kolb L, ADVANCED PRACTICE PSYCHIATRIC NURSE [address] [place] [address] 11/29/2024 10:20 AM EDT Office Visit [facility] Internal Medicine [address] [place] [address] Alisa Kunz, DO [address] [place] [address] 02/02/2025 10:30 AM EST [facility] Medicine Specialties [address] [place] [address] Sadiq Osborne, MBBS [address], [place] [phone] documented as of this encounter Visit Diagnoses [...] documented as of this encounter Care Teams Prenatal Teacher Relationship Specialty Start Date End Date Alisa Kunz DO [address] [facility] [address] [place] [address] PCP - General Internal Medicine 03/13/21 Kodi Bustos DO [address] [place] [address] Surgeon Cardiothoracic Surgery 11/06/22 Sujit Arriola MD [address] [place] [address] Consulting Physician Pulmonary Disease 11/06/22 Sujit Reyes MD [address] [place] [address] Referring Physician 12/04/22 Ekaterina Gómez Hot Plate Plywood Press Feeder Supervisor Education 08/16/24 08/16/24 documented as of this encounter
--- OUTSIDE RECORDS SUMMARY | 2024-08-30 13:05 | XMS_ITS | Encounter Summary ---
Author Organization Healthcare Address [address] [place] [address] Care Team Providers Care Programmer Or Analyst Name Role Phone Ze, Alisa Wild DO Primary Care Provider Kodi Bustos DO Unavailable [phone] Sujit Arriola MD Unavailable [phone] Sujit Reyes MD Unavailable [phone] Zully Caldwell REAL ESTATE DEVELOPER Unavailable Unavailable Ekaterina Gómez Unavailable Unavailable Patricia Yañez REAL ESTATE DEVELOPER Unavailable Unavailab le Encounter Details Date Type Department Care Team (Late st Contact Info) Description 08/06/2024 Telephone [facility] Endocrinology [address] [place] [address] Anne-Marie Kolb, VICE PRESIDENT SUPPLY CHAIN [address] [facility] [address] [place] [address] Social History Tobacco Use Types Packs/Day Years [...] How often do you attend chur or temple services? 1 to 4 times per year 08/30/2022 Do you belong to any clubs o r organizations such as gnosticist groups, unions, fraternal or athletic groups, or [...] Recorded Patient Health Questionnaire-2 Score 0 08/04/2024 [facility] ional [facility] - [...] in the past 12 m [facility], were you homeless or living [...] drink first t anselmo in the morning (EYE-VOCATIONAL TRAINER) to steady your nerves or to get rid of a hangover? 0 07/12/2024 CAGE Questionnaire Score 0 025 Utilities Answer Date Recorded In the past 12 months has e [employer], gas, oil, or water [employer] threatened to shut off services in your [...] encounter Miscellaneous Notes * Telephone Encounter - Syl Salmeron RN - 08/06/2024 2:25 PM EDT Returned pt's call regarding high BG levels. Patient was just seen in OV on 08/05/27 and her regimenwas adjusted to taking Toujeo 7 units in the morning and 7 units at night. She was advised to do this for at least 5 days, then if not working, can then take 14 units in the morning. She is doing 2-4units of Lispro and her correction scale was also changed to 1:50>150. She reports having high BG in 300's upon waking this morning. Looked at pt's Dexcom report and can see her highs daily. It does not look like pt has been taking her insulin before meals. Inquired as to when she is injecting her insulin, and she reports that it is not 10-15 before she eats. She reports that she has CHF, and Lupus, and some fluid retention, and reports that she has a lot to deal with. I informed her that with a lot of stress on the body, it could also contribute to increased blood sugars. I advised to strongly and consistently work on timing of insulin, and since she has just started the change in Toujeo BID, reiterated to work on that, and to call us back next week and we will take another look at Dexcom report and make adjustments if needed. She verbalized understanding and no other concerns voiced. * Telephone Encounter - CARRIE VALENTINE - 08/06/2024 11:47 AM EDT Pt's BG has ran above 300 and pt would like to discuss her recent insulin adjustments. documented in this encounter Plan of Treatment Upcoming Encounters Date Type Department Care Team (Late st Contact Info) Description 09/08/2024 11:20 AM EDT Office Visit [facility] Internal Medicine [address] [place] [address] Alisa Kunz, DO [address] [place] [address] 10/07/2024 4:00 PM EDT Appointment Cardiac Imaging [address] [place] [address] 10/14/2024 4:00 PM EDT Office Visit [facility] Medicine Specialties [address] [place] [address] Lavern Shoemaker MD [address] [place] [address] 10/27/2024 1:40 PM EDT Office Visit [facility] [address] [place] [address] Anne-Marie Kolb, VICE PRESIDENT SUPPLY CHAIN [address] [place] [address] 11/29/2024 10:20 AM EDT Office Visit [facility] Internal Medicine [address] [place] [address] Alisa Kunz DO [address] [place] [address] 02/02/2025 10:30 AM EST Office Visit [facility] Medicine Specialties [address] [place] [address] Sadiq Osborne, MBMAC [address] [place] [address] documented as of this encounter [...] documented as of this encounter Care Teams Programmer Or Analyst Relationship Specialty Start Date End Date Alisa Kunz DO [address] [address] PCP - General Internal Medicine 03/13/21 Kodi Bustos DO [address] [address] Surgeon Cardiothoracic Surgery 11/06/22 Sujit Arriola MD [address] [place] [address] Consulting Physician Pulmonary Disease 11/06/22 Sujit Reyes MD [address] [place] [address] Referring Physician 12/04/22 Zully Caldwell LPN VALUE[place] [address] TCM Nurse 07/16/24 08/15/24 Ekaterina Gómez Local Sales Associate Mustanger 08/16/24 08/16/24 Patricia Yañez LPN TCM Nurse 08/25/24 documented as of this encounter
--- OUTSIDE RECORDS SUMMARY | 2024-08-30 13:05 | XMS_ITS | Encounter Summary ---
Author Organization [facility] Address [address] [place] [address] Care Team Providers Care Extension Service Advisor Name Role Phone Alisa Kunz DO Primary Care Provider Kodi Bustos DO Unavailable [phone] Sujit Arriola MD Unavailable [phone] Sujit Reyes MD Unavailable [phone] Zully Caldwell LPN Unavailable Unavailable Reason for Visit * Reason Onset Date Comments HCN Clinical Concern/Question 08/11/2024 Encounter Details Date Type Department Care Team (Late st Contact Info) Description 08/11/2024 Telephone [facility] Internal Medicine [address], [address] [place] [address] Alisa Kunz DO [address] [place] [address] HCN Clinical Concern/Question Social History [...] How often do you attend chur or moravian services? 1 to 4 times per year [...] Recorded Patient Health Questionnaire-2 Score 0 08/04/2024 [facility] of Occupat ional Health - Occupational [...] place to sleep or slept in a custodial (including now)? No 12/30/2023 PHQ-9 Answer Date [...] were you homeless or living in a custodial (including now)? No 05/27/2024 CAGE ASSESSMENT Answer [...] drink first t anselmo in the morning (EYE-TRAIN ELECTRONIC TECHNICIAN) to steady your nerves or to get rid of a hangover? 0 07/12/2024 CAGE Questionnaire Score 0 025 Utilities Answer Date Recorded In the past 12 months has e [employer], gas, oil, or water [employer] threatened to shut off services in your [...] Telephone Encounter - Shannen Stephens - 08/12/2024 11:47 AM EDT Called pt and her ankles are not swollen anymore. She stated she increased her O2 to 4 liters I advised her to call pulmonary and if she has anymore trouble breathing to go to the ER * Telephone Encounter - Alisa Kunz DO - 08/12/2024 11:18 AM EDT New onset 2 cm swelling in one side should probably be evaluated and an ultrasound completed to look for a clot- that would be my recommendation. * Telephone Encounter - Shannen Stephens - 08/12/2024 11:15 AM EDT I spoke to the nurse and the pt doesn't have any wt gain and was up on it since she is having her bathroom remodeled. Pt was leaving to go to [facility] * Telephone Encounter - Alisa Kunz DO - 08/12/2024 9:35 AM EDT I'm a little confused by their message: her ankle is swollen? Just one side? Probably needs an ultrasound if that's acute? * Telephone Encounter - Sushila Keller - 08/11/2024 2:01 PM EDT Clinical Concern/Question Reason for Call: calling to report patients ankle has increased 2cm. Patient denies SOA. Please call Dinah with any questions. Thanks! Best contact number: Other: [phone] Optimal time of day to reach caller: ANYTIME Additional comments/information from caller: None Note: Please do not reply to this message. Follow-up communication and further actions as a result of this message need to be communicated with the patient directly, if the patient is not active onMyChart. If the patient is active on MyChart, they will receive notification of the communication/outcome via [employer]. documented in this encounter Plan of Treatment Upcoming Encounters Date Type Department Care Team (Late st Contact Info) Description 09/08/2024 11:20 AM EDT Office Visit [facility] Internal Medicine [address], [address] [place] [address] Alisa Kunz DO [address] [place] [address] 10/07/2024 4:00 PM EDT Appointment Cardiac Imaging [address] [place] [address] 10/14/2024 4:00 PM EDT Office Visit [facility] Medicine Specialties [address], [address] [place] [address] Lavern Shoemaker MD [address] [place], [place] [id number] 10/27/2024 1:40 PM EDT Office Visit [facility] Endocrinology [address] [place] [address] Anne-Marie Kolb L, POSTAL SUPERVISOR [address] [place] [address] 11/29/2024 10:20 AM EDT Office Visit [facility] Internal Medicine [address], [address] [place] [address] Alisa Kunz DO [address] [facility] [address] [place] [address] 02/02/2025 10:30 AM EST [facility] Visit [facility] Medicine Specialties [address] [place] [address] Sadiq Osborne MBBS [address] [place] [phone] documented as of this encounter Visit Diagnoses [...] documented as of this encounter Care Teams Extension Service Advisor Relationship Specialty Start Date End Date Alisa Kunz DO [address] [facility] [address] [place] [address] PCP - General Internal Medicine 03/13/21 Kodi Bustos, [address] [address] Surgeon Cardiothoracic Surgery 11/06/22 Sujit Arriola MD [address] [place] [address] Consulting Physician Pulmonary Disease 11/06/22 Sujit Reyes MD [address] [place] [address] Referring Physician 12/04/22 Zully Caldwell LPN VALUE-[place]ED [place] [address] TCM Nurse 07/16/24 08/15/24 documented as of this encounter
--- OUTSIDE RECORDS SUMMARY | 2024-08-30 13:05 | XMS_ITS | Encounter Summary ---
Author Organization Healthcare Address [address] [place] [address] Care Team Providers Care Pillow Cleaner Name Role Phone Alisa Kunz DO Primary Care Provider [phone] Kodi Bustos DO Unavailable [phone] Sujit Arriola MD Unavailable [phone] Sujit Reyes MD Unavailable [phone] Encounter Details Date Type Department Care Team (Latest Contact Info) Description 08/19/2024 Travel Social History Tobacco Use Types Packs/Day [...] often do you attend chur ch or hindu services? 1 to 4 times per year 08/30/2022 Do you belong to any clubs o r organizations such as anabaptist groups, unions, fraternal or athletic groups, or [...] Recorded Patient Health Questionnaire-2 Score 0 08/04/2024 [facility] of Occupat ional Health - [...] any time in the [facility] 12 m [facility], were you homeless or living in a correction (including now)? No 05/27/2024 Humiliation, Afraid, Rape, [...] any time in the past 12 m [facility], were you homeless or living in a correction (including now)? No 08/15/2024 CAGE ASSESSMENT Answer [...] drink first t anselmo in the morning (EYE-LOGGING TRUCK DRIVER) to steady your nerves or to get rid of a hangover? 0 08/14/2024 CAGE Questionnaire Score 0 025 Utilities Answer Date Recorded In the past 12 months has th e [employer], gas, oil, or water [employer] threatened to shut off services in your [...] Date of Assessment Author No Risk Indicated 08/19/2024 8:00 PM EDT Sujit Figueroa, RN * Question Answer Date of Assessment Author 1. Wish to be (Past 1 Month) No 025 8:00 PM EDT Sujit Figueroa, RN 2. Non-Specific Active Suici dillon Thoughts (Past 1 Month) No 08/19/2024 8:00 PM EDT Sujit Figueroa, RN 6. Suicidal Behavior (Lifetime) No 8:00 PM EDT Sujit Figueroa, RN documented as of this encounter Plan of Treatment Upcoming Encounters Date Type Department Care Team (Late st Contact Info) Description 09/08/2024 11:20 AM EDT Office Visit [facility] Internal Medicine [address] [place] [address] Alisa Kunz, [address] [place] [address] 10/07/2024 4:00 PM EDT Appointment Cardiac Imaging [address] [place] [address] 10/14/2024 4:00 PM EDT Office Visit [facility] Medicine Specialties [address] [place] [address] Lavern Shoemaker MD [address] [place] [address] 10/27/2024 1:40 PM EDT Office Visit [facility] Endocrinology [address] [place] [address] Anne-Marie Kolb, SHINGLES ROOFER HELPER [address] [facility] [address] [place] [address] 11/29/2024 10:20 AM EDT Office Visit [facility] Internal Medicine [address] [place] [address] Alisa Kunz DO [address] [address] 02/02/2025 10:30 AM EST Office Visit [facility] Medicine Specialties [address], [address] [place] [address] Sadiq Osborne, SHANA [address] [place], [place] [address] documented as of this encounter Visit Diagnoses [...] documented as of this encounter Care Teams Pillow Cleaner Relationship Specialty Start Date End Date Alisa Kunz DO [address] [facility] [address] [place] [address] PCP - General Internal Medicine 03/13/21 Kodi Bustos DO [address] [address] Surgeon Cardiothoracic Surgery 11/06/22 Sujit Arriola MD [address] [place] [address] Consulting Physician Pulmonary Disease 11/06/22 Sujit Reyes MD [address] [place] [address] Referring Physician 12/04/22 documented as of this encounter
--- OUTSIDE RECORDS SUMMARY | 2024-08-30 13:05 | XMS_ITS | Encounter Summary ---
Author Organization [facility] Address [address] [place] [address] Care Team Providers Care Auto Wash Buffer Name Role Phone Alisa Kunz DO Primary Care Provider [phone] Kodi Bustos DO Unavailable [phone] Sujit Arriola MD Unavailable [phone] Sujit Reyes MD Unavailable [phone] Zully Caldwell LPN Unavailable Unavailable Ekaterina Gómez Unavailable Unavailable Reason for Visit * Reason Comments Med Refill Encounter Details Date Type Department Care Team (Late st Contact Info) Description 08/15/2024 Refill [facility] Internal Medicine [address] [place] [address] Alisa Kunz DO [address] [place] [address] Social History Tobacco Use Types [...] often do you attend chur ch or sabianist services? 1 to 4 times [...] Recorded Patient Health Questionnaire-2 Score 0 08/04/2024 [facility] of Occupat ional Health - Occupational [...] any time in the past 12 m [facility], were you homeless or living [...] any time in the past 12 m [facility], were you homeless or living [...] drink first t anselmo in the morning (EYE-SUPERVISOR ORE DRESSING) to steady your nerves or to get rid of a hangover? 0 08/14/2024 CAGE Questionnaire Score 0 025 Utilities Answer Date Recorded In the past 12 months has th [employer], gas, oil, or water [employer] threatened to shut off services in your [...] Telephone Encounter - Alisa Kunz DO - 08/16/2024 4:07 PM EDT PDMP reviewed; can fill 07/24/2024. * Telephone Encounter - Alisa Kunz DO - 08/16/2024 4:05 PM EDT PDMP reviewed and appropriate; refilled. documented in this encounter Plan of Treatment Upcoming Encounters Date Type Department Care Team (Late st Contact Info) Description 09/08/2024 11:20 AM EDT Office Visit [facility] Internal Medicine [address] [place] [address] Alisa Kunz DO [address] [place] [address] 10/07/2024 4:00 PM EDT Appointment Cardiac Imaging [address] [place] [address] 10/14/2024 4:00 PM EDT Office Visit [facility] Medicine Specialties [address] [place] [address] Lavern Shoemaker MD [address] [place] [address] 10/27/2024 1:40 PM EDT Office Visit [facility] Endocrinology [address] [place] [address] Anne-Marie Kolb, PROJECT MANAGER/TEAM COACH [address] [facility] [address] [place] [address] 11/29/2024 10:20 AM EDT Office Visit [facility] Internal Medicine [address] [place] [address] Alisa Kunz DO [address] [place] [address] 02/02/2025 10:30 AM EST [facility] Medicine Specialties [address] [place] [address] Sadiq Osborne, LARISSABS [address] [place] [address] documented as of this encounter [...] documented as of this encounter Care Teams Auto Wash Buffer Relationship Specialty Start Date End Date lAisa Kunz DO [address] [place] [address] PCP - General Internal Medicine 03/13/21 Kodi Bustos DO [address] [place] [phone] Surgeon Cardiothoracic Surgery 11/06/22 Sujit Arriola MD [address] [place] [address] Consulting Physician Pulmonary Disease 11/06/22 Sujit Reyes MD [address] [place] [address] Referring Physician 12/04/22 Zully Caldwell LPN VALUE-[place]ED [place] [address] TCM Nurse 07/16/24 08/15/24 Ekaterina Gómez Stopboard Assembler Impregnator And Drier Helper 08/16/24 08/16/24 documented as of this encounter
--- OUTSIDE RECORDS SUMMARY | 2024-08-30 13:05 | XMS_ITS ---
Author Organization [facility] Address [address] [place] [address] Care Team Providers Care Rod Filler Name Role Phone Ze Alisa Wild DO Primary Care Provider [phone] Kodi Bustos DO Unavailable [phone] Sujit Arriola MD Unavailable [phone] Sujit Reyes MD Unavailable Patricia Yañez LPN Unavailable Unavailab le LINK Program Status:Closed (Closed) Start date:07/14/2024 Enrollment reason:Identified using hospital discharge data End date:07/14/2024 Close reason:Patient Declined Continued Care and Services Coordination
--- OUTSIDE RECORDS SUMMARY | 2024-08-30 13:05 | XMS_ITS | Encounter Summary ---
Author Organization [facility] Address [address] [place] [address] Care Team Providers Care Olive Pitter Name Role Phone Alisa Kunz DO Primary Care Provider [phone] Kodi Bustos DO Unavailable [phone] Sujit Arriola MD Unavailable [phone] Sujit Reyes MD Unavailable [phone] Zully Caldwell MERCHANDISE APPRAISER Unavailable Unavailable Ekaterina Gómez Unavailable Unavailable Patricia Yañez MERCHANDISE APPRAISER Unavailable Unavailab le Reason for Visit * Reason Onset Date Comments HCN Clinical Concern/Question 08/09/2024 Encounter Details Date Type Department Care Team (Late st Contact Info) Description 08/09/2024 Telephone [facility] [place] [address] [facility], [address] [place] [address] Cassius Gonzales MD [address] [place] [address] HCN Clinical Concern/Question Social History Tobacco Use [...] week 08/30/2022 How often do you attend [facility] or gnosticist services? 1 to 4 times per year 08/30/2022 Do you belong to any clubs o r organizations such as yazidi groups, unions, fraternal or athletic groups, or [...] Recorded Patient Health Questionnaire-2 Score 0 08/04/2024 [facility] - Occupational Stress Questionnaire Answer Date [...] to sleep or slept in a senior care (including now)? No 12/30/2023 PHQ-9 Answer Date [...] any time in the past 12 m [facility], were you homeless or living in a senior care (including now)? No 05/27/2024 CAGE ASSESSMENT Answer [...] drink first t anselmo in the morning (EYE-INSULATION MANAGER) to steady your nerves or to [...] encounter Miscellaneous Notes * Telephone Encounter - Cassius Gonzales MD - 08/09/2024 2:00 PM EDT Ok thanks, she can always have the right heart cath in the hospital once she gets diuresed. * Telephone Encounter - Pat Mendes, RN - 08/09/2024 1:47 PM EDT I spoke with pt she said had spoke to her ep doctor and they were wanting to do a cardioversion butwanted to wait until after the RHC. She also said she spoke with pulm and they recommenced she go to the ED rt build up of fluid on her lungs. I told her I would speak with dr. Gonzales to see if wecan move up her RHC. I told her we recommend her go to the ED also with the fluid buildup. HARMAN Stewart, RN * Telephone Encounter - Bola Higuera - 08/09/2024 12:12 PM EDT Clinical Concern/Question Reason for Call: Alnabelsi Patient requesting a cb from nursing staff. Regarding needing a heart cath. Best contact number: [phone] Optimal time of day to reach caller: [...] Visit [facility] Internal Medicine [address]rd [place] [address] Alisa Kunz L, DO [address] [place] [address] 10/07/2024 4:00 PM EDT Appointment Cardiac Imaging [address] [place] [address] 10/14/2024 4:00 PM EDT [facility] Visit [facility] Special[facility] [address] [place] [address] Lavern Shoemaker MD [address] [place], [place] [address] 10/27/2024 1:40 PM EDT Office Visit [facility] Endocrinology [address] [place] [address] Anne-Marie Kolb L, DIRECT SUPPORT PROFESSIONAL HOME HEALTH [address] [facility] [address] [place] [address] 11/29/2024 10:20 AM EDT Office Visit [facility] Internal Medicine [address] [place] [address] Alisa Kunz DO [address] [place] [address] 02/02/2025 10:30 AM EST [facility] [address] [place] [address] Sadiq Osborne, SHANA [address] [place] [address] documented as of this encounter [...] documented as of this encounter Care Teams Olive Pitter Relationship Specialty Start Date End Date Alisa Kunz DO [address] [place] [address] PCP - General Internal Medicine 03/13/21 Kodi Bustos DO [address] [place] [address] Surgeon Cardiothoracic Surgery 11/06/22 Sujit Arriola MD [address] [place] [address] Consulting Physician Pulmonary Disease 11/06/22 Sujit Reyes MD [address] [place] [address] Referring Physician 12/04/22 Zully Caldwell LPN VALUE-BASED [place] [address] TCM Nurse 07/16/24 08/15/24 Ekaterina Gómez Dye Maker Teacher Theater Arts 08/16/24 08/16/24 Patricia Yañez LPN TCM Nurse 08/25/24 documented as of this encounter
--- OUTSIDE RECORDS SUMMARY | 2024-08-30 13:05 | XMS_ITS ---
Author Organization [facility] Address [address] [place] [address] Care Team Providers Care Investment Banker Name Role Phone ZeAlisa DO Primary Care Provider [phone] Kodi Bustos DO Unavailable [phone] Sujit Arriola MD Unavailable [phone] Sujit Reyes MD Unavailable [phone] Patricia Yañez LPN Unavailable Unavailab Transitional Care Management Status:Active (Active) Start date:08/25/2024 Enrollment date:08/25/2024 Enrollment reason:Identified using hospital discharge data Overview This episode type is for outpatient care managers enrolling patients in the [facility] Transitional Care Management program. Case Team Name Relationship Phone Patricia Yañez LPN(Responsible Staff) [facility] Continued Care and Services Coordination
--- OUTSIDE RECORDS SUMMARY | 2024-08-30 13:05 | XMS_ITS ---
Author Organization [facility] Address [address] [place] [address] Care Team Providers Care Decorative Engraver Name Role Phone Alisa Kunz Torri SOLIS Primary Care Provider [phone] Kodi Bustos DO Unavailable [phone] Sujit Arriola MD Unavailable [phone] Sujit Reyes MD Unavailable [phone] Patricia Yañez LPN Unavailable Unavailab le Transitional Care Management Status:Closed (Closed) Start date:07/16/2024 Enrollment date:07/19/2024 Enrollment reason:Identified using hospital discharge data End date:08/15/2024 Close reason:Patient graduated Overview This episode type is for outpatient care managers enrolling patients in the [facility] Transitional Care Management program. Continued Care and Services Coordination
--- OUTSIDE RECORDS SUMMARY | 2024-08-30 13:06 | XMS_ITS | Encounter Summary ---
Author Organization Healthcare Address [address] [place] [address] Care Team Providers Care Mandrel Press Hand Name Role Phone Alisa Kunz DO Primary Care Provider [phone] Kodi Bustos DO Unavailable [phone] Sujit Arriola MD Unavailable [phone] Sujit Reyes MD Unavailable [phone] Encounter Details Date Type Department Care Team (Latest Contact Info) Description 08/23/2024 Travel Social History Tobacco Use Types Packs/Day [...] often do you attend chur ch or latter day services? 1 to 4 times per year 08/30/2022 Do you belong to any clubs o r organizations such as confucianist groups, unions, fraternal or athletic groups, or [...] Recorded Patient Health Questionnaire-2 Score 0 08/04/2024 [facility] of Occupat ional Health - Occupational [...] any time in the past 12 m [facility], were you homeless or living in a residential (including now)? No 05/27/2024 Humiliation, Afraid, Rape, [...] any time in the past 12 m [facility], were you homeless or living in a residential (including now)? No 08/15/2024 CAGE ASSESSMENT Answer [...] drink first t anselmo in the morning (EYE-GENETIC SCIENTIST) to steady your nerves or to get rid of a hangover? 0 08/14/2024 CAGE Questionnaire Score 0 025 Utilities Answer Date Recorded In the past 12 months has th e [employer], gas, oil, or water [employer] threatened to shut off services in your home? No 08/15/2024 PHQ-2A Answer Date Recorded Depression Risk 0 09/18/2022 Comments No Sex and Gender Information Value Date Recorded Sex Assigned at Female 11/01/2020 9:33 PM EDT Legal Sex Female 8:14 PM EDT Gender Identity Female 11/01/2020 9:33 PM EDT Sexual Orientation Straight 11/01/2020 9: 33 PM EDT documented as of this encounter Plan of Treatment Upcoming Encounters Date Type Department Care Team (Late st Contact Info) Description 09/08/2024 11:20 AM EDT Office Visit [facility] Internal Medicine [address], 3rd [place] [address] Alisa Kunz, [address] [place] [address] 10/07/2024 4:00 PM EDT Appointment Cardiac Imaging [address] [place] [address] 10/14/2024 4:00 PM EDT Office Visit [facility] Medicine Specialties [address], 2nd [place] [address] Lavern Shoemaker MD [address] [place], [place] [id number] 10/27/2024 1:40 PM EDT Office Visit [facility] Endocrinology [address] [place] [phone] Anne-Marie Kolb, SILK OPENER [address] [place] [address] 11/29/2024 10:20 AM EDT Office Visit [facility] Internal Medicine [address], 3rd [place] [address] Alisa Kunz DO [address] [place] [address] 02/02/2025 10:30 AM EST Office Visit [facility] Medicine Specialties [address], 2nd [place] [address] Sadiq Osborne, SHANA [address] [place] [address] documented as of this encounter [...] documented as of this encounter Care Teams Mandrel Press Hand Relationship Specialty Start Date End Date Alisa Kunz DO [address] [place] [address] PCP - General Internal Medicine 03/13/21 Kdoi Bustos DO [address] [address] Surgeon Cardiothoracic Surgery 11/06/22 Sujit Arriola MD [address] [place] [address] Consulting Physician Pulmonary Disease 11/06/22 Sujit Reyes MD [address] [place] [address] Referring Physician 12/04/22 documented as of this encounter
--- OUTSIDE RECORDS SUMMARY | 2024-08-30 13:06 | XMS_ITS | Encounter Summary ---
Author Organization Healthcare Address [address] [place] [address] Care Team Providers Care Trimmer Tailer Name Role Phone Alisa Kunz DO Primary Care Provider [phone] Kodi Bustos DO Unavailable [phone] Sujit Arriola MD Unavailable [phone] Sujit Reyes MD Unavailable [phone] Encounter Details Date Type Department Care Team (Latest Contact Info) Description 08/22/2024 Travel Social History Tobacco Use Types Packs/Day [...] often do you attend chur ch or jain services? 1 to 4 times per year 08/30/2022 Do you belong to any clubs o r organizations such as voodoo groups, unions, fraternal or athletic groups, or [...] any time in the past 12 m [facility], were you homeless or living in a retirement (including now)? No 05/27/2024 Humiliation, Afraid, Rape, [...] any time in the past 12 m [facility], were you homeless or living in a retirement (including now)? No 08/15/2024 CAGE ASSESSMENT Answer [...] drink first t anselmo in the morning (EYE-BILINGUAL NANNY) to steady your nerves or to get rid of a hangover? 0 08/14/2024 CAGE Questionnaire Score 0 025 Utilities Answer Date Recorded In the past 12 months has th e [employer], gas, oil, or water [employer] threatened to shut off services in your [...] Date of Assessment Author No Risk Indicated 08/22/2024 8:00 AM EDT Kosta Dugan RN * Question Answer Date of Assessment Author 1. Wish to be (Past 1 Month) No 025 8:00 AM EDT Kosta Dugan RN 2. Non-Specific Active Suici dillon Thoughts (Past 1 Month) No 08/22/2024 8:00 AM EDT Autumn Dugan RN 6. Suicidal Behavior (Lifetime) No 8:00 AM EDT Kosta Dugan RN documented as of this encounter Plan of Treatment Upcoming Encounters Date Type Department Care Team (Late st Contact Info) Description 09/08/2024 11:20 AM EDT Office Visit [facility] Internal Medicine [address], 3rd [place] [address] Alisa Kunz DO [address] [place] [address] 10/07/2024 4:00 PM EDT Appointment Cardiac Imaging [address] [place] [address] 10/14/2024 4:00 PM EDT Office Visit [facility] Medicine Specialties [address], [address] [place] [address] Lavern Shoemaker MD [address] [place], [place] [id number] 10/27/2024 1:40 PM EDT Office Visit [facility] Endocrinology [address] [place] [address] Anne-Marie Kolb, PHYSICAL SCIENTIST [address] [facility] 125 [place] [address] 11/29/2024 10:20 AM EDT Office Visit [facility] Internal Medicine [address], 3rd [place] [address] Alisa Kunz DO [address] [place] [address] 02/02/2025 10:30 AM EST Office Visit [facility] Medicine Specialties [address], 2nd [place] [address] Sadiq Osborne MBBS [address] [place], [place] [phone] documented as of this encounter Visit Diagnoses [...] documented as of this encounter Care Teams Trimmer Tailer Relationship Specialty Start Date End Date Alisa Kunz DO [address] [place] [address] PCP - General Internal Medicine 03/13/21 Kodi Bustos DO [address] [place] [phone] Surgeon Cardiothoracic Surgery 11/06/22 Sujit Arriola MD [address] [place] [address] Consulting Physician Pulmonary Disease 11/06/22 Sujit Reyes MD [address] [place] [address] Referring Physician 12/04/22 documented as of this encounter
--- OUTSIDE RECORDS SUMMARY | 2024-08-30 13:06 | XMS_ITS | Encounter Summary ---
Author Organization Healthcare Address [address] [place] [address] Care Team Providers Care Revenue Agent Name Role Phone Alisa Kunz DO Primary Care Provider [phone] Kodi Bustos DO Unavailable [phone] Sujit Arriola MD Unavailable [phone] Sujit Reyes MD Unavailable [phone] Encounter Details Date Type Department Care Team (Latest Contact Info) Description 08/20/2024 Travel Social History Tobacco Use Types Packs/Day [...] often do you attend chur ch or sabianism services? 1 to 4 times per year 08/30/2022 Do you belong to any clubs o r organizations such as oriental orthodox groups, unions, fraternal or athletic groups, [...] any time in the past 12 m [facility], were you homeless or [...] any time in the past 12 m [facility], were you homeless or [...] drink first t anselmo in the morning (EYE-LOOKBACK COORDINATOR) to steady your nerves or to get rid of a hangover? 0 08/14/2024 CAGE Questionnaire Score 0 025 Utilities Answer Date Recorded In the past 12 months has th e [employer], gas, oil, or water [employer] threatened to shut off services in your [...] Date of Assessment Author No Risk Indicated 08/20/2024 8:00 PM EDT Marlene Cortes i, RN * Question Answer Date of Assessment Author 1. Wish to be (Past 1 Month) No 025 8:00 PM EDT Marlene Jain RN 2. Non-Specific Active Suici dillon Thoughts (Past 1 Month) No 08/20/2024 8:00 PM EDT Sebastián Jain RN 6. Suicidal Behavior (Lifetime) No 8:00 PM EDT Marlene Jain RN documented as of this encounter Plan of Treatment Upcoming Encounters Date Type Department Care Team (Late st Contact Info) Description 09/08/2024 11:20 AM EDT Office Visit [facility] Internal Medicine [address], [address]rd [place] [address] Alisa Kunz DO [address] [place] [address] 10/07/2024 4:00 PM EDT Appointment Cardiac Imaging [address] [place] [address] 10/14/2024 4:00 PM EDT Office Visit [facility] Medicine Specialties [address], [address]nd [place] [address] Lavern Shoemaker MD [address] [place], [place] [id number] 10/27/2024 1:40 PM EDT Office Visit [facility] Endocrinology [address] [place] [address] Anne-Marie Kolb, STATISTICAL TYPIST [address] [facility] [address] [place] [address] 11/29/2024 10:20 AM EDT Office Visit [facility] Internal Medicine [address], [address]rd [place] [address] Alisa Kunz DO [address] [facility] [address] [place] [address] 02/02/2025 10:30 AM EST Office Visit [facility] Medicine Specialties [address], 2nd [place] [address] Sadiq Osborne MBBS [address] [place], [place] [id number] documented as of this encounter Visit Diagnoses [...] documented as of this encounter Care Teams Revenue Agent Relationship Specialty Start Date End Date Alisa Kunz DO [address] [facility] 304 [place] [address] PCP - General Internal Medicine 03/13/21 Kodi Bustos DO [address] [place] [phone] Surgeon Cardiothoracic Surgery 11/06/22 Sujit Arriola MD [address] [place] [address] Consulting Physician Pulmonary Disease 11/06/22 Sujit Reyes MD [address] [place] [address] Referring Physician 12/04/22 documented as of this encounter
--- OUTSIDE RECORDS SUMMARY | 2024-08-30 13:06 | XMS_ITS | Encounter Summary ---
Author Organization Healthcare Address [address] [place] [address] Care Team Providers Care Vice President Global Advertising Sales Name Role Phone Alisa Kunz DO Primary Care Provider [phone] Kodi Bustos DO Unavailable [phone] Sujit Arriola MD Unavailable [phone] Sujit Reyes MD Unavailable [phone] Encounter Details Date Type Department Care Team (Latest Contact Info) Description 08/21/2024 Travel Social History Tobacco Use Types Packs/Day [...] often do you attend chur ch or congregation services? 1 to 4 times per year 08/30/2022 Do you belong to any clubs o r organizations such as rastafarian groups, unions, fraternal or athletic groups, or [...] Recorded Patient Health Questionnaire-2 Score 0 08/04/2024 [facility] of Occupat ional Health - Occupational [...] place to sleep or slept in a jail (including now)? No 12/30/2023 PHQ-9 Answer Date [...] any time in the past 12 m [facility], were you homeless or living in a jail (including now)? No 05/27/2024 Humiliation, Afraid, Rape, [...] any time in the past 12 m [facility], were you homeless or living in a jail (including now)? No 08/15/2024 CAGE ASSESSMENT Answer [...] drink first t anselmo in the morning (EYE-ADJUNCT PROFESSOR OF ENGLISH) to steady your nerves or to get rid of a hangover? 0 08/14/2024 CAGE Questionnaire Score 0 025 Utilities Answer Date Recorded In the past 12 months has th e [employer], gas, oil, or water [employer] threatened to shut off services in your [...] Date of Assessment Author No Risk Indicated 08/21/2024 8:00 PM EDT Gideon Hopper RN * Question Answer Date of Assessment Author 1. Wish to be (Past 1 Month) No 025 8:00 PM EDT Mary Hopper RN 2. Non-Specific Active Suici dillon Thoughts (Past 1 Month) No 08/21/2024 8:00 PM EDT Mary Hopper RN 6. Suicidal Behavior (Lifetime) No 8:00 PM EDT Mary Hopper RN documented as of this encounter Plan of Treatment Upcoming Encounters Date Type Department Care Team (Late st Contact Info) Description 09/08/2024 11:20 AM EDT Office Visit [facility] Internal Medicine [address], 3rd [place] [address] Alisa Kunz DO [address] [place] [address] 10/07/2024 4:00 PM EDT Appointment Cardiac Imaging [address] [place] [address] 10/14/2024 4:00 PM EDT Office Visit [facility] Medicine Specialties [address], 2nd [place] [address] Lavern Shoemaker MD [address] [place], [place] [id number] 10/27/2024 1:40 PM EDT Office Visit [facility] Endocrinology [address] [place] [address] Anne-Marie Kolb, INSURANCE CLERK [address] [facility] 125 [place] [address] 11/29/2024 10:20 AM EDT Office Visit [facility] Internal Medicine [address], 3rd [place] [address] Alisa Kunz DO [address] [address] 02/02/2025 10:30 AM EST Office Visit [facility] Medicine Specialties [address], [address] [place] [address] Sadiq Osborne MBBS [address] [place], [place] [id number] documented as of this encounter Visit Diagnoses [...] documented as of this encounter Care Teams Vice President Global Advertising Sales Relationship Specialty Start Date End Date Alisa Kunz DO [address] [place] [address] PCP - General Internal Medicine 03/13/21 Kodi Bustos DO [address] [place] [address] Surgeon Cardiothoracic Surgery 11/06/22 Sujit Arriola MD [address] [place] [address] Consulting Physician Pulmonary Disease 11/06/22 Sujit Reyes MD [address] [place] [address] Referring Physician 12/04/22 documented as of this encounter
--- NOTE | 2024-08-30 13:07 | ECG_ITS ---
APPROVED REPORT Exam: Resting ECG HR:60 bpm ECG Measurements Heart Rate 60 AXES QRSd 192 QRS 241 QT 543 T 76 QTc 545 Conclusion ELECTRONIC VENTRICULAR PACEMAKER ABNORMAL RHYTHM ECG UNCONFIRMED REPORT Electronically signed by : Dominic Zeng MD 08/31/2024 09:06:31
--- OUTSIDE RECORDS SUMMARY | 2024-08-30 13:07 | XMS_ITS | Encounter Summary ---
Author Organization Healthcare Address [address] [place] [address] Care Team Providers Care Physician Practice Administrator Name Role Phone Alisa Kunz DO Primary Care Provider [phone] Kodi Bustos DO Unavailable [phone] Sujit Arriola MD Unavailable [phone] Sujit Reyes MD Unavailable [phone] Encounter Details Date Type Department Care Team (Latest Contact Info) Description 08/17/2024 Travel Social History Tobacco Use Types Packs/Day [...] often do you attend chur ch or muslim services? 1 to 4 times per year 08/30/2022 Do you belong to any clubs o r organizations such as quaker groups, unions, fraternal or athletic groups, or [...] Recorded Patient Health Questionnaire-2 Score 0 08/04/2024 [facility] of Occupat ional Health - [...] any time in the past 12 m [facility], were you homeless or [...] any time in the past 12 m [facility], were you homeless or [...] drink first t anselmo in the morning (EYE-CNA PER DIEM) to steady your nerves or to get rid of a hangover? 0 08/14/2024 CAGE Questionnaire Score 0 025 Utilities Answer Date Recorded In the past 12 months has th e [employer], gas, oil, or water [employer] threatened to shut off services in [...] Description 09/08/2024 11:20 AM EDT Office Visit [facility] Internal Medicine [address], 3rd [place] [address] Alisa Kunz, [address] [place] [address] 10/07/2024 4:00 PM EDT Appointment Cardiac Imaging [address] [place] [address] 10/14/2024 4:00 PM EDT Office Visit [facility] Medicine Specialties [address], [address]nd [place] [address] Lavern Shoemaker MD [address] [place], [place] [id number] 10/27/2024 1:40 PM EDT Office Visit [facility] Endocrinology [address] [place] [address] Anne-Marie Kolb, VICE PRESIDENT RISK MANAGEMENT [address] [place] [address] 11/29/2024 10:20 AM EDT Office Visit [facility] Internal Medicine [address], 3rd [place] [address] Alisa Kunz DO [address] [place] [address] 02/02/2025 10:30 AM EST Office Visit [facility] Medicine Specialties [address], [address] [place] [address] Sadiq Osborne, SHANA [address] [place] [address] documented as of this encounter [...] documented as of this encounter Care Teams Physician Practice Administrator Relationship Specialty Start Date End Date Alisa Kunz DO [address] [place] [address] PCP - General Internal Medicine 03/13/21 Kodi Bustos DO [address] [address] Surgeon Cardiothoracic Surgery 11/06/22 Sujit Arriola MD [address] [place] [address] Consulting Physician Pulmonary Disease 11/06/22 Sujit Reyes MD [address] [place] [address] Referring Physician 12/04/22 documented as of this encounter
--- OUTSIDE RECORDS SUMMARY | 2024-08-30 13:07 | XMS_ITS | Encounter Summary ---
Author Organization Healthcare Address [address] [place] [address] Care Team Providers Care X Ray Inspector Name Role Phone Alisa Kunz DO Primary Care Provider [phone] Kodi Bustos DO Unavailable [phone] Sujit Arriola MD Unavailable [phone] Sujit Reyes MD Unavailable [phone] Patricia Yañez LPN Unavailable Unavailab le Reason for Visit * Reason Comments Med Refill Encounter Details Date Type Department Care Team (Late st Contact Info) Description 08/25/2024 Refill [facility] Medicine Specialties [address] [place] [address] Noris Yee MD [address] [place] [address] Systemic lupus erythematosus (SLE) in adult (CMS/HCC) Social History Tobacco Use Types Packs/Day [...] How often do you attend chur or mormon services? 1 to 4 times per year [...] Recorded Patient Health Questionnaire-2 Score 0 08/04/2024 [facility] of Occupat ional Health - [...] time in the past 12 m [facility], were you homeless or living in a prison (including now)? No 05/27/2024 Humiliation, Afraid, Rape, [...] time in the past 12 m [facility], were you homeless or living in a prison (including now)? No 08/25/2024 CAGE ASSESSMENT Answer [...] drink first t anselmo in the morning (EYE-COPYING MACHINE MECHANIC) to steady your nerves or to get rid of a hangover? 0 08/14/2024 CAGE Questionnaire Score 0 025 Utilities Answer Date Recorded In the past 12 months has th e [employer], gas, oil, or water [employer] threatened to shut off services in your [...] Description 09/08/2024 11:20 AM EDT Office Visit [facility] Internal Medicine [address], [address]rd [place] [address] Alisa Kunz, [address] [place] [address] 10/07/2024 4:00 PM EDT Appointment Cardiac Imaging [address] [place] [address] 10/14/2024 4:00 PM EDT Office Visit [facility] Medicine Specialties [address]nd [place] [address] Lavern Shoemaker MD [address] [place], [place] [id number] 10/27/2024 1:40 PM EDT Office Visit [facility] Endocrinology [address] [place] [address] Anne-Marie Kolb L, CAREER AND TECHNOLOGY EDUCATION TEACHER [address] [place] [address] 11/29/2024 10:20 AM EDT Office Visit [facility] Internal Medicine [address], [address]rd [place] [address] Alisa Kunz DO [address] [facility] [address] [place] [address] 02/02/2025 10:30 AM EST Office Visit [facility] Medicine Specialties [address], [address] [place] [address] Sadiq Osborne MBBS [address] [place], [place] [id number] documented as of this encounter Visit Diagnoses Diagnosis Systemic lupus erythematosus (SLE) in adult ([facility]) documented in this encounter Additional Health Concerns Assessment Noted Time PHQ-9 Depression Total Score: 8 07/22/19 25 9:23 AM EDT A fall risk assessment has been complete d for the patient 08/04/2024 10:41 AM EDT A Body Mass Index follow-up plan has been documented for the patient 08/24/2024 2:26 PM EDT documented as of this encounter Care Teams X Ray Inspector Relationship Specialty Start Date End Date Alisa Kunz DO [address] [place] [address] PCP - General Internal Medicine 03/13/21 Kodi Bustos DO [address] [address] Surgeon Cardiothoracic Surgery 11/06/22 Sujit Arriola MD [address] [place] [address] Consulting Physician Pulmonary Disease 11/06/22 Sujit Reyes MD [address] [place] [address] Referring Physician 12/04/22 Patricia Yañez LPN TCM Nurse 08/25/24 documented as of this encounter
--- OUTSIDE RECORDS SUMMARY | 2024-08-30 13:08 | XMS_ITS | Encounter Summary ---
Author Organization [facility] Address [address] [place] [address] Care Team Providers Care Finisher Tailor Apprentice Name Role Phone Alisa Kunz DO Primary Care Provider Kodi Bustos DO Unavailable [phone] Sujit Arriola MD Unavailable [phone] Sujit Reyes MD Unavailable [phone] Patricia Yañez LPN Unavailable Unavailab le Reason for Visit * Reason Onset Date Comments HCN Clinical Concern/Question 08/25/2024 Encounter Details Date Type Department Care Team (Late st Contact Info) Description 08/25/2024 Telephone [facility] Internal Medicine [address] [place] [address] Alisa Kunz DO [address] [place] [address] HCN Clinical Concern/Question Social History [...] How often do you attend chur or zoroastrian services? 1 to 4 times per year 08/30/2022 Do you belong to any clubs o r organizations such as jehovah's witness groups, unions, fraternal or athletic groups, or [...] place to sleep or slept in a group home (including now)? No 12/30/2023 PHQ-9 Answer [...] any time in the past 12 m [facility], were you homeless or living in a group home (including now)? No 05/27/2024 Humiliation, Afraid, Rape, [...] any time in the past 12 m [facility], were you homeless or living in a group home (including now)? No 08/25/2024 CAGE ASSESSMENT Answer [...] drink first t anselmo in the morning (EYE-SCRAP WHEELER) to steady your nerves or to get rid of a hangover? 0 08/14/2024 CAGE Questionnaire Score 0 025 Utilities Answer Date Recorded In the past 12 months has th [employer], [employer], oil, or water [employer] threatened to shut off services in your [...] * Telephone Encounter - Shannen Stephens - 08/27/2024 3:52 PM EDT Left pt detailed vm advising of Dr Kunz's message * Telephone Encounter - Alisa Kunz DO - 08/27/2024 3:22 PM EDT Okay to wean off if she would like: Can take one tablet BID for 1-2 weeks, then one tablet daily for another 1-2 weeks, then stop. * Telephone Encounter - Alisa Kunz DO - 08/25/2024 3:55 PM EDT We have an appointment 09/08/2024 will that work? (14 days). I will be following HH orders. * Telephone Encounter - Edgar Patel - 08/25/2024 12:19 PM EDT Clinical Concern/Question Reason for Call: Pt requesting call back from nurse for hospital discharge with provider only and home health, please contact pt for more information. Best contact number: [phone] (mobile) Optimal time of day to reach caller: ANYTIME Additional comments/information from caller: None Note: Please do not reply to this message. Follow-up communication and further actions as a result of this message need to be communicated with the patient directly, if the patient is not active onMyChart. If the patient is active on MyChart, they will receive notification of the communication/outcome via [employer]. documented in this encounter Plan of Treatment Upcoming Encounters Date Type Department Care Team (Late st Contact Info) Description 09/08/2024 11:20 AM EDT Office Visit [facility] Internal Medicine [address] [place] [address] Alisa Kunz DO [address] [place] [address] 10/07/2024 4:00 PM EDT Appointment Cardiac Imaging [address] [place] [address] 10/14/2024 4:00 PM EDT Office Visit [facility] [address] [place] [address] Lavern Shoemaker MD [address] [place], [place] [id number] 10/27/2024 1:40 PM EDT Office Visit [facility] Endocrinology [address] [place] [phone] Anne-Marie Kolb, TRANSIT PLANNING DIRECTOR [address] [facility] [address] [place] [address] 11/29/2024 10:20 AM EDT Office Visit [facility] Internal Medicine [address] [place] [address] Alisa Kunz DO [address] [facility] [address] [place] [address] 02/02/2025 10:30 AM EST Office Visit [facility] [address] [place] [address] Sadiq Osborne MBBS [address] [place], [place] [phone] documented as of this encounter Visit Diagnoses [...] documented as of this encounter Care Teams Finisher Tailor Apprentice Relationship Specialty Start Date End Date Alisa Knuz DO [address] [facility] [address] [place] [address] PCP - General Internal Medicine 03/13/21 Kodi Bustos DO [address] [address] Surgeon Cardiothoracic Surgery 11/06/22 Sujit Arriola MD [address] [place] [address] Consulting Physician Pulmonary Disease 11/06/22 Sujit Reyes MD [address] [place] [address] Referring Physician 12/04/22 Patricia Yañez LPN TCM Nurse 08/25/24 documented as of this encounter
--- OUTSIDE RECORDS SUMMARY | 2024-08-30 13:08 | XMS_ITS | Clinical Summary ---
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 (E10.621) L97.522 (ICD-10-CM ) 04/20 Active 04/20 Patricia Sutherland Non-pressure chronic ulcer of other part of left foot with fat layer exposed Cellulitis, foot, left 123831117 (SNOMED CT) 04/20 Active 04/20 Patricia Koko Cellulitis of foot Cellulitis, toe, left 97953288 (SNOMED CT) 04/20 Active 04/20 Patricia Koko Cellulitis of toe Left atrial thrombus 810214801 (SNOMED CT) 04/20 Active 04/20 Patricia Koko Atrial thrombosis SLE (Systemic lupus erythematosus ) 70744541 (SNOMED CT) 04/20 Active 04/20 Patricia Koko Systemic lupus erythematosus Presence of cardiac pacemaker 326334402 (SNOMED CT) 04/20 Active 04/20 Patricia Sutherland Cardiac pacemaker in situ Coronary artery disease, S/P CABG 626265060 (SNOMED CT) 04/20 Active 04/20 Patricia Sutherland Arteriosclerosis of coronary artery bypass graft DM, type I 67873444 (SNOMED CT) 04/20 Active 04/20 Patricia Sutherland Type 2 diabetes mellitus Benign Essential Hypertension 59392745 (SNOMED CT) 04/20 Active 04/20 Patricia Sutherland Benign hypertension Medications Medication Instructions Start Date Stop Date Generic Name NDC Provider Iron (ferrous sulfate) (ferrous sulfate) ferrous sulfate [facility] B-12 1000 MCG CAPS every morning cya nocobalamin (vitamin b-12) 36243573309 [facility] LIVALO 4 MG TABS every night pitavas tatin calcium 86906901326 [facility] ZETIA 10 MG TABS every night ezetimibe 582415956 01 [facility] latanoprost (bulk) every evening bulk [facility] Zyrtec (cetirizine) every evening cetirizine [facility] MYCOPHENOLATE MOFETIL 500 MG TABS twice a day mycophenolat e mofetil 85743547363 [facility] CETIRIZINE HCL 10 MG TABS Take 1 tablet by mouth once a day 02/23 cetirizine 72751202493 [facility] BRIMONIDINE TARTRATE 0.2 % SOLN Apply 1 drop in eye as directed 06/14 brimonidine 86138784329 [facility] Trelegy Ellipta 200-62.5-25 MCG/INH inhaler Inhale 2 puff once a day 07/17 Trelegy Ellipta 200-62.5-25 MCG/INH inhaler [facility] HYDROXYCHLOROQUINE SULFATE 200 MG TABS Take 1 tablet by mouth once a day 12/05 hydroxychloroquine 13275874138 [facility] RISAQUAD CAPS Take 1 capsule by mouth once a day 04/18 l.acid,para-b.bifid um-s.therm 99009316974 [facility] LOSARTAN POTASSIUM 25 MG TABS Take 1 tablet by mouth once a day 11/17 losartan 04571704380 [facility] FOLIC ACID 1 MG TABS Take 1 tablet by mouth once a day folic acid 59161027863 [facility] PITAVASTATIN CALCIUM 2 MG TABS Take 1 tablet by mouth every night 02/23 pitavastatin calcium 64148266798 [facility] Insulin Glargine (TOUTREVOR SOLOSTAR SC) Inject 23 unit subcutaneously every night as directed 02/23 TOUJEO SOLOSTAR SC [facility] EZETIMIBE 10 MG TABS Take 1 tablet by mouth every night 02/23 ezetimibe 81727166933 [facility] DULOXETINE HCL 20 MG CPEP Take 1 capsule by mouth once a day 02/23 duloxetine 10497333928 [facility] BUSPIRONE HCL 5 MG TABS Take 1 tablet by mouth twice a day buspirone 64482260098 [facility] INSULIN LISPRO 100 UNIT/ML SOLN Inject 3 unit subcutaneously three times a day as directed 02/23 insulin lispro 08662228824 [facility] METOPROLOL SUCCINATE ER 25 MG [id number] Take 1 tablet by mouth once a day 12/06 metoprolol succinate 84124952574 [facility] LATANOPROST 0.005 % SOLN Administer 1 drop into both eyes every night 06/15 latanoprost 45737432588 [facility] ASPIRIN LOW DOSE 81 MG TBEC Take 1 tablet by mouth every night aspirin 29775212392 [facility] LEVOTHYROXINE SODIUM 125 MCG TABS Take 1 tablet by mouth once a day 02/23 levothyroxine 87657499905 [facility] WARFARIN SODIUM 5 MG TABS Take 1 tablet by mouth every night 04/04 warfarin 61011468245 [facility] HYDROXYCHLOROQUINE SULFATE 200 MG TABS Take 1 tablet by mouth every night 02/23 hydroxychloroquine 38150327339 [facility] AZITHROMYCIN 250 MG TABS Take 1 tablet by mouth once a day 02/23 azithromycin 38596901752 [facility] GABAPENTIN 100 MG CAPS Take 9 capsule by mouth every night 08/28 gabapentin 91362853660 [facility] DULOXETINE HCL 60 MG CPEP Take 1 capsule by mouth Daily. 60mg and 20mg in the morning 02/23 duloxetine 99732083800 [facility] Calcium Citrate-Vitamin D (CALCIUM D PO) Take 1 tablet by mouth once a day CALCIUM D PO [facility] EZETIMIBE 10 MG TABS Take 1 tablet by mouth once a day 09/20 ezetimibe 47888822748 [facility] Toujeo Max U-300 SoloStar (insulin glargine u-300 conc) every morning insulin glargine u-300 conc [facility] CYMBALTA 60 MG CPEP every morning duloxetine 000 53890416 [facility] CYMBALTA 20 MG CPEP every morning duloxetine 000 63663540 [facility] WARFARIN SODIUM 5 MG TABS Take 1 tablet by mouth Every Night. 04/04 warfarin 30696651560 [facility] Trelegy Ellipta 200-62.5-25 MCG/INH inhaler Inhale 2 puffs Daily. 07/17 Trelegy Ellipta 200-62.5-25 MCG/INH inhaler [facility] PITAVASTATIN CALCIUM 2 MG TABS Take 1 tablet by mouth Every Night. 02/23 pitavastatin calcium 40338235463 [facility] METOPROLOL SUCCINATE ER 25 MG [id number] Take 1 tablet by mouth Daily. 12/06 metoprolol succinate 58630612455 [facility] LOSARTAN POTASSIUM 25 MG TABS Take 1 tablet by mouth Daily. 11/17 losartan 35795541612 [facility] LEVOTHYROXINE SODIUM 125 MCG TABS Take 1 tablet by mouth Daily. 02/23 levothyroxine 18481881990 [facility] LATANOPROST 0.005 % SOLN Administer 1 drop to both eyes Every Night. 06/15 latanoprost 18831848505 [facility] RISAQUAD CAPS Take 1 capsule by mouth Daily for 14 days. 04/18 l.acid,para-b.bifid um-s.therm 26760667746 [facility] INSULIN LISPRO 100 UNIT/ML SOLN Inject 3 Units under the skin into the appropriate area as directed 3 (Three) Times a Day Before Meals. 02/23 insulin lispro 83338127923 [facility] Insulin Glargine (TOURANDYO SOLOSTAR SC) Inject 23 Units under the skin into the appropriate area as directed Every Night. 02/23 TOUJEO SOLOSTAR SC [facility] HYDROXYCHLOROQUINE SULFATE 200 MG TABS Take 1 tablet by mouth Daily. 12/05 hydroxychloroquine 21534396430 [facility] HYDROXYCHLOROQUINE SULFATE 200 MG TABS Take 1 tablet by mouth Every Night. 08/20 hydroxychloroquine 38148538362 [facility] GABAPENTIN 100 MG CAPS Take 9 capsules by mouth Every Night. 08/28 gabapentin 50810914781 [facility] FOLIC ACID 1 MG TABS Take 1 tablet by mouth Daily. 02/23 folic acid 09044043918 [facility] EZETIMIBE 10 MG TABS Take 1 tablet by mouth Daily. 09/20 ezetimibe 93946015423 [facility] EZETIMIBE 10 MG TABS Take 1 tablet by mouth Every Night. 02/23 ezetimibe 03856732758 [facility] DULOXETINE HCL 60 MG CPEP Take 1 capsule by mouth Daily. 60mg and 20mg in the morning 02/23 duloxetine 79167164544 [facility] DULOXETINE HCL 20 MG CPEP Take 1 capsule by mouth Daily. 02/23 duloxetine 98052636609 [facility] CETIRIZINE HCL 10 MG TABS Take 1 tablet by mouth Daily. 02/23 cetirizine 53506089852 [facility] CEFDINIR 300 MG CAPS Take 1 capsule by mouth Every 12 (Twelve) Hours for 5 doses. Indications: Infection of the Skin and/or Soft Tissue 04/17 cefdinir 02506306372 [facility] Calcium Citrate-Vitamin D (CALCIUM D PO) Take 1 tablet by mouth Daily. 02/23 CALCIUM D PO [facility] BUSPIRONE HCL 10 MG TABS Take 1 tablet by mouth 2 (Two) Times a Day. 02/23 buspirone 29852849967 [facility] BRIMONIDINE TARTRATE 0.2 % SOLN Apply 1 drop to eye(s) as directed by provider. 06/14 brimonidine 30434638794 [facility] AZITHROMYCIN 250 MG TABS Take 1 tablet by mouth Daily. 08/20 azithromycin 56934136696 [facility] ASPIRIN LOW DOSE 81 MG TBEC Take 1 tablet by mouth Every Night. 08/20 aspirin 42768842025 [facility] Medications Administered No information available. Allergies, Adverse Reactions, Alerts Allergy Name Reaction Description Start Date Severity Statu s Provider TETRACYCLINES & RELATED Rash Moderate Activ e Laiba Fany ROSUVASTATIN Unknown - Low Severity Mild Act steven Laiba Fany PRAVASTATIN Other (See Comments) Moderate Active Laiba Fany PENICILLINS Rash Moderate Active Laiba R asul MORPHINE AND CODEINE Hallucinations Critical Act steven Laiba Fany CEPHALEXIN Rash Moderate Active Laiba Ra sul AZATHIOPRINE Unknown (See Comments) Moderate Act steven Laiba Fany ATORVASTATIN Myalgia Critical Active Laiba Fany Results Date Name Value Unit Range Flag Description Clinical Lists Update: Prelo ad VAPE_USE Never Tobacco smok ing status Office Visit: Office Visit: rm 11 HFU FALLRSKASSES yes Fall ris k assessment MEDS REVIEW Done Documenta tion of current medications (procedure) ORALTOBACUSE Never Tobacco smoking status SMOK STATUS Never smoker Toba national account manager smoking status Plan of Care No information available. Procedures No information available. Vital Signs Date Name Value Unit Description BMI (Body Mass Index) 25.61 kg/m2 Bod y Mass Index (Ratio) Body Temperature 97.6 [degF] temperat ure E&M BP Diastolic 68 mm[Hg] blood pressu re, diastolic BP Systolic 118 mm[Hg] blood pressur e, systolic Heart Rate 70 /min pulse rate Height 64 [in_us] height E&M Respiratory Rate 16 /min respirat ory rate E&M Weight Measured 149.2 [lb_av] weight E& M Weight Measured 149.2 [lb_av] weight E& M Immunizations No information available. Advance Directives Directive Description Start Date HEALTHCARE SURROGATE POWER OF MARKETING CONTENT SPECIALIST LIVING WILL ON FILE
--- OUTSIDE RECORDS SUMMARY | 2024-08-30 13:08 | XMS_ITS | Encounter Summary ---
Author Organization [facility] Address [address] [place] [address] Care Team Providers Care Technology Solutions Architect Name Role Phone Alisa Kunz DO Primary Care Provider [phone] Kodi Bustos DO Unavailable [phone] Sujit Arriola MD Unavailable [phone] Sujit Reyes MD Unavailable [phone] Patricia Yñaez LPN Unavailable Unavailab le Encounter Details Date Type Department Care Team (Late st Contact Info) Description 08/27/2024 Telephone [facility] Endocrinology [address] [place] [phone] Katerine Donaldson Social History Tobacco Use Types Packs/Day Years [...] How often do you attend chur or anglican services? 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 0 08/14/2024 CAGE Questionnaire Score 0 025 Utilities Answer Date Recorded In the past 12 months has th Risk [employer], gas, oil, or water company threatened to [...] Telephone Encounter - Syl Salmeron RN - 08/30/2024 12:00 PM EDT Returned pt's call regarding having low BG levels. Patient reports that she had been in the hospital and was D/c'd on 08/24/24. She reports that since then she has been having some lows in the morning. Looked at Dexcom report (in media), and it has showed some lows in the morning and a couple in theevening, however, it also shows elevated BG during the day. Patient reports that she is taking Toujeo 7 units BID, and mealtime insulin plus 1:50>150 averaging around 15-18 units of mealtimedaily. I inquired if pt was taking insulin 10-15 min before meals and she reports that she is not, and that it has been crazy. I advised that part of those highs and evening lows is attributed to howshe is taking her insulin. I advised to decrease night dose of Toujeo from 7 units to 6 units, and keep morning dose at 7 units. Advised to do that for 3-4 days and call us back on or FridayIf more adjustments are needed. Also advised to work on timing of mealtime insulin to aid in help with daytime highs. She verbalized understanding and no other concerns voiced. * Telephone Encounter - CARRIE VALENTINE - 08/30/2024 9:39 AM EDT Pt is continuing to have lows, and requesting call back to help adjust her insulin. documented in this encounter Plan of Treatment Upcoming Encounters Date Type Department Care Team (Late st Contact Info) Description 09/08/2024 11:20 AM EDT Office Visit [facility] Internal Medicine [address] [place] [address] Alisa Kunz, DO [address] [place] [address] 10/07/2024 4:00 PM EDT Appointment Cardiac Imaging [address] [place] [address] 10/14/2024 4:00 PM EDT Office Visit [facility] [address] [place] [phone] Lavern Shoemaker MD [address] [place] [address] 10/27/2024 1:40 PM EDT Office Visit [facility] Endocrinology [address] [place] [address] Anne-Marie Kolb, SODA FOUNTAIN MANAGER [address] [place] [address] 11/29/2024 10:20 AM EDT Office Visit [facility] Internal Medicine [address] [place] [address] Alisa Kunz DO [address] [place] [address] 02/02/2025 10:30 AM EST [facility] Visit [facility] [address] [place] [address] Sadiq Osborne, SHANA [address] [place] [address] documented as of this encounter [...] documented as of this encounter Care Teams Technology Solutions Architect Relationship Specialty Start Date End Date Alisa Kunz DO [address] [address] PCP - General Internal Medicine 03/13/21 Kodi Bustos DO [address] [place] [address] Surgeon Cardiothoracic Surgery 11/06/22 Sujit Arriola MD [address] [place] [address] Consulting Physician Pulmonary Disease 11/06/22 Sujit Reyes MD [address] [place] [address] Referring Physician 12/04/22 Patricia Yañez LPN TCM Nurse 08/25/24 documented as of this encounter
--- OUTSIDE RECORDS SUMMARY | 2024-08-30 13:08 | XMS_ITS | Encounter Summary ---
Author Organization [facility] Address [address] [place] [address] Care Team Providers Care Instrumentation Tech Name Role Phone Alisa Kunz DO Primary Care Provider Kodi Bustos DO Unavailable [phone] Sujit Arriola MD Unavailable [phone] Sujit Reyes MD Unavailable [phone] Patricia Yañez LPN Unavailable Unavailab le Reason for Visit * Reason Onset Date Comments HCN Clinical Concern/Question 08/30/2024 Encounter Details Date Type Department Care Team (Late st Contact Info) Description 08/30/2024 [facility]phone [facility] [address], [address]rd [place] [address] Alisa Kunz DO [address] [place] [address] HCN Clinical Concern/Question Social History [...] any clubs o r organizations such as christianity groups, unions, fraternal or athletic groups, or [...] place to sleep or slept in a skilled nursing (including now)? No 12/30/2023 PHQ-9 Answer Date [...] were you homeless or living in a skilled nursing (including now)? No 05/27/2024 Humiliation, Afraid, Rape, [...] were you homeless or living in a skilled nursing (including now)? 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 0 08/14/2024 CAGE Questionnaire Score 0 025 Utilities Answer Date Recorded In the past 12 months has th School [employer], [employer], oil, or water [employer] threatened to shut off services in your [...] Telephone Encounter - Alisa Kunz DO - 08/30/2024 9:09 AM EDT Magnesium supplementation and iron supplementation: can be helpful for the RLS. Can trial Orajel OTC for the mouth sores in addition to Magic Mouthwash? * Telephone Encounter - Yue Bonilla - 08/30/2024 8:14 AM EDT Clinical Concern/Question Reason for Call: Pt asking for a call back to discuss mouth sores; States they are using Magic mouth wash but it's not really helping; Also States they are not sleeping due to restless leg syndrome, asking if there is a mineral or vitamin they could take to help; Please call to advise Best contact number: [phone] (mobile) Optimal time of day to reach caller: ANYTIME Additional comments/information from caller: None Note: Please do not reply to this message. Follow-up communication and further actions as a result of this message need to be communicated with the patient directly, if the patient is not active onMyChart. If the patient is active on MyChart, they will receive notification of the communication/outcome via [employer]. documented in this encounter Plan of Treatment Upcoming Encounters Date Type Department Care Team (Late st Contact Info) Description 09/08/2024 11:20 AM EDT [facility] [address]rd [place] [address] Alisa Kunz, DO [address] [place] [address] 10/07/2024 4:00 PM EDT Appointment Cardiac Imaging [address] [place] [address] 10/14/2024 4:00 PM EDT Office Visit [facility] Medicine Specialties [address], [address]nd [place] [address] Lavern Shoemaker MD [address] [place] [address] 10/27/2024 1:40 PM EDT Office Visit [facility] Endocrinology [address] [place] [address] Anne-Marie Kolb, NEUROSURGERY RESEARCH DIRECTOR [address] [place] [address] 11/29/2024 10:20 AM EDT [facility] [address]rd [place] [address] Alisa Kunz DO [address] [place] [address] 02/02/2025 10:30 AM EST [facility] Medicine [facility]ties [address] [place] [address] Sadiq Osborne, SHANA [address] [place] [address] documented as of this encounter [...] documented as of this encounter Care Teams Instrumentation Tech Relationship Specialty Start Date End Date Alisa Kunz DO [address] [place] [phone] PCP - General Internal Medicine 03/13/21 Kodi Bustos DO [address] [address] Surgeon Cardiothoracic Surgery 11/06/22 Sujit Arriola MD [address] [place] [address] Consulting Physician Pulmonary Disease 11/06/22 Sujit Reyes MD [address] [place] [address] Referring Physician 12/04/22 Patricia Yañez LPN TCM Nurse 08/25/24 documented as of this encounter
--- OUTSIDE RECORDS SUMMARY | 2024-08-30 13:08 | XMS_ITS | Encounter Summary ---
Author Organization [facility] Address [address] [place] [address] Care Team Providers Care Erp Manager Name Role Phone Alisa Kunz DO Primary Care Provider [phone] Kodi Bustos DO Unavailable [phone] Sujit Arriola MD Unavailable [phone] Sujit Reyes MD Unavailable [phone] Encounter Details Date Type Department Care Team (Latest Contact Info) Description 08/18/2024 Travel Social History Tobacco Use Types Packs/Day [...] often do you attend chur ch or quaker services? 1 to 4 times per year 08/30/2022 Do you belong to any clubs o r organizations such as sabianism groups, unions, fraternal or athletic groups, or [...] Recorded Patient Health Questionnaire-2 Score 0 08/04/2024 [facility] of Occupat ional Health - Occupational [...] place to sleep or slept in a alf (including now)? No 12/30/2023 PHQ-9 Answer Date [...] any time in the past 12 m [facility], were you homeless or living in a alf (including now)? No 05/27/2024 Humiliation, Afraid, Rape, [...] any time in the past 12 m [facility], were you homeless or living in a alf (including now)? 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 0 08/14/2024 CAGE Questionnaire Score 0 025 Utilities Answer Date Recorded In the past 12 months has th e [employer], gas, oil, or water [employer] threatened to shut off services in your [...] Date of Assessment Author No Risk Indicated 08/18/2024 7:45 PM EDT Darin Rosenthal * Question Answer Date of Assessment Author 1. Wish to be (Past 1 Month) No 025 7:45 PM EDT Darin Florez 2. Non-Specific Active Suici dillon Thoughts (Past 1 Month) No 08/18/2024 7:45 PM EDT Darin Florez 6. Suicidal Behavior (Lifetime) No 7:45 PM EDT Darin Florez documented as of this encounter Plan of Treatment Upcoming Encounters Date Type Department Care Team (Late st Contact Info) Description 09/08/2024 11:20 AM EDT Office Visit [facility] Internal Medicine [address], 3rd [place] [address] Alisa Kunz DO [address] [place] [address] 10/07/2024 4:00 PM EDT Appointment Cardiac Imaging [address] [place] [address] 10/14/2024 4:00 PM EDT Office Visit [facility] Medicine Specialties [address], 2nd [place] [address] Lavern Shoemaker MD [address] [place], [place] [phone] 10/27/2024 1:40 PM EDT Office Visit [facility] Endocrinology [address] [place] [address] Anne-Marie Kolb, MICROSOFT EXCHANGE ARCHITECT [address] [place] [address] 11/29/2024 10:20 AM EDT Office Visit [facility] Internal Medicine [address], 3rd [place] [address] Alisa Kunz DO [address] [place] [address] 02/02/2025 10:30 AM EST Office Visit [facility] Medicine Specialties [address], [address] [place] [address] Sadiq Osborne MBBS [address] [place], [place] [phone] documented as of this encounter Visit Diagnoses [...] documented as of this encounter Care Teams Erp Manager Relationship Specialty Start Date End Date Alisa Kunz DO [address] [place] [address] PCP - General Internal Medicine 03/13/21 Kodi Bustos DO [address] [phone] Surgeon Cardiothoracic Surgery 11/06/22 Sujit Arriola MD [address] [place] [address] Consulting Physician Pulmonary Disease 11/06/22 Sujit Reyes MD [address] [place] [address] Referring Physician 12/04/22 documented as of this encounter
--- OUTSIDE RECORDS SUMMARY | 2024-08-30 13:08 | XMS_ITS | Encounter Summary ---
Author Organization [facility] Address [address] [place] [address] Care Team Providers Care Echocardiography Tech Name Role Phone Alisa Kunz Torri DO Primary Care Provider [phone] Kodi Bustos DO Unavailable [phone] Sujit Arriola MD Unavailable [phone] Sujit Reyes MD Unavailable [phone] Patricia Yañez LPN Unavailable Unavailab le Encounter Details Date Type Department Care Team (Late st Contact Info) Description 08/27/2024 Telephone [facility] Medicine Specialties [address], 2nd [place] [phone] Sarah Hernadez RN CH-VASCULAR & INTERVENTIONAL RADIOLOGY Social History Tobacco Use Types Packs/Day Years [...] attend [facility] or hoahaoism services? 1 to 4 times per year [...] Health Questionnaire-2 Score 0 08/04/2024 [facility] of Occupat ional Health - Occupational Stress [...] any time in the past 12 m [facility], were you homeless or living in a [...] any time in the past 12 m [facility], were you homeless or living in a jail (including now)? 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 0 08/14/2024 CAGE Questionnaire Score 0 025 Utilities Answer Date Recorded In the past 12 months has th e [employer], gas, oil, or water company threatened to [...] Description 09/08/2024 11:20 AM EDT Office Visit [facility] Internal Medicine [address], 3rd [place] [address] Alisa Kunz DO [address] [place] [address] 10/07/2024 4:00 PM EDT Appointment Cardiac Imaging [address] [place] [address] 10/14/2024 4:00 PM EDT [facility] Medicine Specialties [address] 2nd [place] [address] Lavern Shoemaker MD [address] [place] [address] 10/27/2024 1:40 PM EDT Office Visit [facility] Endocrinology [address] [place] [address] Anne-Marie Kolb, ASSISTIVE TECHNOLOGY TRAINER [address] [place] [address] 11/29/2024 10:20 AM EDT Office Visit [facility] Internal Medicine [address], 3rd [place] [address] Alisa Kunz DO [address] [place] [address] 02/02/2025 10:30 AM EST [facility] Medicine Specialties [address]nd [place] [address] Sadiq Osborne, SHANA [address] [place] [address] documented as of this encounter [...] documented as of this encounter Care Teams Echocardiography Tech Relationship Specialty Start Date End Date Alisa Kunz, [address] [place] [address] PCP - General Internal Medicine 03/13/21 Kodi Bustos, [address] [address] Surgeon Cardiothoracic Surgery 11/06/22 Sujit Arriola MD [address] [place] [address] Consulting Physician Pulmonary Disease 11/06/22 Sujit Reyes MD [address] [place] [address] Referring Physician 12/04/22 Patricia Yañez LPN TCM Nurse 08/25/24 documented as of this encounter
--- OUTSIDE RECORDS SUMMARY | 2024-08-30 13:08 | XMS_ITS | Encounter Summary ---
Author Organization [facility] Address [address] [place] [address] Care Team Providers Care Stopper Setter Name Role Phone Alisa Kunz DO Primary Care Provider [phone] Kodi Bustos DO Unavailable [phone] Sujit Arriola MD Unavailable [phone] Sujit Reyes MD Unavailable [phone] Patricia Yañez LPN Unavailable Unavailab le Reason for Visit * Reason Comments TCM Call Encounter Details Date Type Department Care Team (Late st Contact Info) Description 08/25/2024 Patient Outreach [facility] [address] [facility] [address] [place] [address] Patricia Yañez LPN TCM Call Social History Tobacco Use Types Packs/Day Years [...] week 08/30/2022 How often do you attend [facility] or jewish services? 1 to 4 times per year 08/30/2022 Do you belong to any clubs o r organizations such as bahai groups, unions, fraternal or athletic groups, or [...] Recorded Patient Health Questionnaire-2 Score 0 08/04/2024 [facility] of Occupat ional Health - [...] any time in the past 12 m [facility], were you homeless or living in [...] any time in the past 12 m [facility], were you homeless or living in [...] Recorded In the past 12 months has [employer], gas, oil, or water [employer] threatened to shut off services in your [...] Miscellaneous Notes * Progress Notes - Patricia Yañez LPN - 08/25/2024 12:26 PM EDT Admit Date: 08/14/2024 Discharge Date: 08/24/2024 Hospital Service: [facility] Discharge Diagnosis: Acute on chronic hypoxic respiratory failure 08/25/2024 TCM call # 1 Patient Reached: Y Outcome: Called patient for TCM nurse call. Notified patient she would need to be seen for hospitalfollow . Patient states that she has an appointment on 09/08/24 with her PCP. Patient states she has someone helping her with transportation to appointments. Patient states since being home they are doing well. Patient denies N/V/D, fever, SOA, chest pain, abdominal pain, or chills. Patient states that she is currently using 2L of oxygen at night. Patient states she did receive her order for outpatient PT/OT. Patient is eating, drinking, and using the restroom normally. Medications were reviewed with patient and they are compliant with medications. SDOH needs were updated with patient and no needs were identified at time of TCM call. Patient did not voice any other questions or concerns during TCM call. Action: Telehealth OV changed to [facility] appointment. Approved by Shannen Stephens. Medication changes: Per AVS Change: gabapentin 300 MG capsule Commonly known as: Neurontin Take 1 capsule by mouth 2 times a day Stop: amLODIPine 5 MG tablet (Norvasc) moxifloxacin 0.5 % ophthalmic solution (Vigamox) prednisoLONE acetate 1 % ophthalmic suspension (Pred-Forte) [facility] appointment: Alisa Kunz DO on 09/08/2024 @ 11:20am Items to address at [facility]: N/A documented in this encounter Plan of Treatment Upcoming Encounters Date Type Department Care Team (Late st Contact Info) Description 09/08/2024 11:20 AM EDT Office Visit [facility] [address] Internal Medicine [address], [address]rd [place] [address] Alisa Kunz DO [address] [facility] [address] [place] [address] 10/07/2024 4:00 PM EDT Appointment Cardiac Imaging [address] [place] [address] 10/14/2024 4:00 PM EDT Office Visit [facility] Medicine Specialties [address], [address]nd [place] [address] Lavern Shoemaker MD [address] [place] [address] 10/27/2024 1:40 PM EDT Office Visit [facility] Endocrinology [address] [place] [address] Anne-Marie Kolb, DIRECTOR [employer] [address] [place] [address] 11/29/2024 10:20 AM EDT Office Visit [facility] [address] Internal Medicine [address], [address]rd [place] [address] Alisa Kunz DO [address] [place] [address] 02/02/2025 10:30 AM EST Office Visit [facility] Medicine Specialties [address] [place] [address] Sadiq Osborne, SHANA [address] [place] [address] documented as of this encounter [...] documented as of this encounter Care Teams Stopper Setter Relationship Specialty Start Date End Date Alisa Kunz DO [address] [address] PCP - General Internal Medicine 03/13/21 Kodi Bustos DO [address] [place] [address] Surgeon Cardiothoracic Surgery 11/06/22 Sujit Arriola MD [address] [place] [address] Consulting Physician Pulmonary Disease 11/06/22 Sujit Reyes MD [address] [place] [address] Referring Physician 12/04/22 Patricia Yañez LPN TCM Nurse 08/25/24 documented as of this encounter
--- OUTSIDE RECORDS SUMMARY | 2024-08-30 13:08 | XMS_ITS | Encounter Summary ---
Author Organization [facility] Address [address] [place] [address] Care Team Providers Care Supervisor Color Paste Mixing Name Role Phone Alisa Kunz DO Primary Care Provider [phone] Kodi Bustos DO Unavailable [phone] Sujit Arriola MD Unavailable [phone] Sujit Reyes MD Unavailable [phone] Patricia Yañez LPN Unavailable Unavailab le Reason for Visit * Reason Onset Date Comments Med Refill 08/27/2024 Encounter Details Date Type Department Care Team (Late st Contact Info) Description 08/27/2024 [facility]ill [facility] Medicine Specialties [address] [place] [address] Ruthie Moy MD [address] [place] [address] Systemic lupus erythematosus (SLE) in adult (CMS/[facility]ERLY [facility]) Social History Tobacco Use Types Packs/Day Years [...] friends, or neighbors? Once a week 08/31/19 23 How often do you get togethe r with friends or relatives? Once a week 08/30/2022 How often do you attend chur ch or yazdanism services? 1 to 4 times per year [...] Recorded Patient Health Questionnaire-2 Score 0 08/04/2024 [facility] of Occupat ional Health - Occupational [...] any time in the past 12 m [facility], were you homeless or living in a fpc (including now)? No 05/27/2024 Humiliation, Afraid, Rape, [...] any time in the past 12 m [facility], were you homeless or living in a fpc (including now)? No 08/25/2024 CAGE ASSESSMENT Answer [...] drink first t anselmo in the morning (EYE-CUSHION INSTALLER) to steady your nerves or to get rid of a hangover? 0 08/14/2024 CAGE Questionnaire Score 0 025 Utilities Answer Date Recorded In the past 12 months has th e [employer], gas, oil, or water [employer] threatened to shut off services in your [...] encounter Miscellaneous Notes * Progress Notes - Kayla Ceja, PharmD - 08/27/2024 12:28 PM EDT Resent prescription(s) to requested pharmacy due to: Day supply change. documented in this encounter Plan of Treatment Upcoming Encounters Date Type Department Care Team (Late st Contact Info) Description 09/08/2024 11:20 AM EDT Office Visit [facility] Internal Medicine [address]rd [place] [address] Alisa Kunz, DO [address] [place] [address] 10/07/2024 4:00 PM EDT Appointment Cardiac Imaging [address] [place] [address] 10/14/2024 4:00 PM EDT Office Visit [facility] Medicine Specialties [address] [place] [address] Lavern Shoemaker MD [address] [place], [place] [phone] 10/27/2024 1:40 PM EDT Office Visit [facility] Endocrinology [address] [place] [address] Anne-Marie Kolb, JAVA ENTERPRISE ARCHITECT [address] [facility] [address] [place] [address] 11/29/2024 10:20 AM EDT Office Visit [facility] Internal Medicine [address] 3rd [place] [address] Alsia Kunz, DO [address] [facility] [address] [place] [address] 02/02/2025 10:30 AM EST Office Visit [facility] Medicine Specialties [address] [place] [address] Sadiq Osborne MBBS [address] [place], [place] [phone] documented as of this encounter Visit Diagnoses Diagnosis Systemic lupus erythematosus (SLE) in adult (CMS/HCC) documented in this encounter Additional Health Concerns Assessment Noted Time PHQ-9 Depression Total Score: 8 07/22/19 25 9:23 AM EDT A fall risk assessment has been complete d for the patient 08/04/2024 10:41 AM EDT A Body Mass Index follow-up plan has been documented for the patient 08/24/2024 2:26 PM EDT documented as of this encounter Care Teams Supervisor Color Paste Mixing Relationship Specialty Start Date End Date Alisa Kunz DO [address] [place] [address] PCP - General Internal Medicine 03/13/21 Kodi Bustos DO [address] [address] Surgeon Cardiothoracic Surgery 11/06/22 Sujit Arriola MD [address] [place] [address] Consulting Physician Pulmonary Disease 11/06/22 Sujit Reyes MD [address] [place] [address] Referring Physician 12/04/22 Patricia Yañez LPN TCM Nurse 08/25/24 documented as of this encounter
--- OUTSIDE RECORDS SUMMARY | 2024-08-30 13:08 | XMS_ITS | Encounter Summary ---
Author Organization Healthcare Address [address] [place] [address] Care Team Providers Care Woolen Suiting Shrinker Name Role Phone Alisa Kunz DO Primary Care Provider Kodi Bustos DO Unavailable [phone] Sujit Arriola MD Unavailable [phone] Sujit Reyes MD Unavailable [phone] Patricia Yañez LPN Unavailable Unavailab le Encounter Details Date Type Department Care Team (Late st Contact Info) Description 08/25/2024 [facility]phone [facility]ties [address] [place] [address] Noris Yee MD [address] [place] [address] Social History Tobacco Use Types Packs/Day Years [...] often do you attend chur ch or mandaen services? 1 to 4 times [...] Recorded Patient Health Questionnaire-2 Score 0 08/04/2024 [facility] - Occupational [...] drink first t anselmo in the morning (EYE-ZYGLO INSPECTOR) to steady your nerves or to get rid of a hangover? 0 08/14/2024 CAGE Questionnaire Score 0 025 Utilities Answer Date Recorded In the past 12 months has th Code Fever, gas, oil, or water [employer] threatened to shut off services in your [...] encounter Miscellaneous Notes * Telephone Encounter - Arben Barnes PharmD - 08/27/2024 7:36 AM EDT Per discussion with provider, MMF 1000mg BID has been ordered at the request of the provider for 30day supply with 5 refills to [facility] pharmacy. * Progress Notes - Kayla Ceja PharmD - 08/25/2024 12:23 PM EDT Refill request does not meet protocol. Sending to clinic for review. Additional info: Dosing clarification needed documented in this encounter Plan of Treatment Upcoming Encounters Date Type Department Care Team (Late st Contact Info) Description 09/08/2024 11:20 AM EDT Office Visit [facility] Internal Medicine [address]rd [place] [address] Alisa Kunz, DO [address] [facility] [address] [place] [address] 10/07/2024 4:00 PM EDT Appointment Cardiac Imaging [address] [place] [address] 10/14/2024 4:00 PM EDT Office Visit [facility] Medicine [facility] [address] [place] [address] Lavern Shoemaker MD [address] [place], [place] [id number] 10/27/2024 1:40 PM EDT Office Visit [facility] Endocrinology [address] [place] [address] Anne-Marie Kolb L, AGRICULTURAL PRODUCTION ENGINEER [address] [facility] [address] [place] [address] 11/29/2024 10:20 AM EDT Office Visit [facility] Internal Medicine [address] [place] [address] Alisa Kunz, DO [address] [place] [address] 02/02/2025 10:30 AM EST Office Visit [facility] Medicine Specialties [address] [place] [address] Sadiq Osborne, SHANA [address] [place], [place] [id number] documented as of this encounter Visit Diagnoses Diagnosis Systemic lupus erythematosus (SLE) in adult ([facility])- Primary documented in this encounter Additional Health Concerns Assessment Noted Time PHQ-9 Depression Total Score: 8 07/22/19 9:23 AM EDT A fall risk assessment has been complete d for the patient 08/04/2024 10:41 AM EDT A Body Mass Index follow-up plan has been documented for the patient 08/24/2024 2:26 PM EDT documented as of this encounter Care Teams Woolen Suiting Shrinker Relationship Specialty Start Date End Date Alisa Kunz DO [address] [place] [id number] PCP - General Internal Medicine 03/13/21 Kodi Bustos DO [address] [phone] Surgeon Cardiothoracic Surgery 11/06/22 Sujit Arriola MD [address] [place] [address] Consulting Physician Pulmonary Disease 11/06/22 Sujit Reyes MD [address] [place] [address] Referring Physician 12/04/22 Patricia Yañez LPN TCM Nurse 08/25/24 documented as of this encounter
--- OUTSIDE RECORDS SUMMARY | 2024-08-30 13:09 | XMS_ITS | Encounter Summary ---
Author Organization Healthcare Address [address] [place] [address] Care Team Providers Care Operations Director Name Role Phone Alisa Kunz Primary Care Provider Kodi Bustos DO Unavailable [phone] Sujit Arriola MD Unavailable [phone] Sujit Reyes MD Unavailable [phone] Tanya Powell Unavailable [phone] Encounter Details Date Type Department Care Team (Late st Contact Info) Description 07/01/2024 Telephone [place] [facility] Medicine Specialties [address] [place] [address] Lavern Shoemaker MD [address] [place] [phone] Social History Tobacco Use Types Packs/Day Years [...] How often do you attend chur or jew services? 1 to 4 times per year [...] Recorded Patient Health Questionnaire-2 Score 0 06/01/2024 [facility]ational Stress Questionnaire [...] any time in the past 12 m [facility], were you homeless or [...] drink first t anselmo in the morning (EYE-CO FOUNDER AND CHAIRMAN) to steady your nerves or to get [...] encounter Miscellaneous Notes * Telephone Encounter - Lavern Shoemaker MD - 07/02/2024 8:54 AM EDT I called patient x3 on 06/30 and again on 07/01 to review results from recent ED visit. No answer. Will discuss further at upcoming appt in clinic. No evidence of infection on pleural fluid. Will need to resume immunosuppression with Rheum for SLE if has not already done so. Has follow up with Cardiology upcoming. If fluid continues to re-accumulate may need to re-address with possible pleurx or pleurodesis on R side. Lavern Shoemaker MD Pulmonary and Critical Care Fellow, PGY5 PICC [phone] documented in this encounter Plan of Treatment Upcoming Encounters Date Type Department Care Team (Late st Contact Info) Description 09/08/2024 11:20 AM EDT Office Visit [facility] Internal Medicine [address]rd [place] [address] Alisa Kunz, DO [address] [place] [address] 10/07/2024 4:00 PM EDT Appointment Cardiac Imaging [address] [place] [address] 10/14/2024 4:00 PM EDT Office Visit [facility] Medicine Specialties [address] [place] [phone] Lavern Shoemaker MD [address] [place], [place] [phone] 10/27/2024 1:40 PM EDT Office Visit [facility] Endocrinology [address] [place] [phone] Anne-Marie Kolb, PASTING MACHINE OPERATOR [address] [facility] [address] [place] [phone] 11/29/2024 10:20 AM EDT Office Visit [facility] Internal Medicine [address] [place] [address] Alisa Kunz DO [address] [place] [address] 02/02/2025 10:30 AM EST Office Visit [facility] Medicine Specialties [address] [place] [address] Sadiq Osborne MBBS [address] [place], [place] [phone] documented as of this encounter Visit Diagnoses [...] documented as of this encounter Care Teams Operations Director Relationship Specialty Start Date End Date Alisa Kunz DO [address] [place] [address] PCP - General Internal Medicine 03/13/21 Kodi Bustos DO [address] [address] Surgeon Cardiothoracic Surgery 11/06/22 Sujit Arriola MD [address] [place] [address] Consulting Physician Pulmonary Disease 11/06/22 Sujit Reyes MD [address] [place] [address] Referring Physician 12/04/22 Tanya Powell [address] [place] [address] Registered Nurse 04/02/24 07/01/24 documented as of this encounter
--- OUTSIDE RECORDS SUMMARY | 2024-08-30 13:09 | XMS_ITS | Clinical Summary ---
Author Organization [facility] Address [address] [place] [address] Care Team Providers Care Com Writer Name Role Phone Alisa Kunz DO Primary Care Provider [phone] Kodi Bustos DO Unavailable [phone] Sujit Arriola MD Unavailable [phone] Sujit Reyes MD Unavailable [phone] Patricia Yañez LPN Unavailable Unavailab le Allergies Active Allergy Reactions Criticality Noted Date Comments Azathioprine Unknown - Patient states they do not know rxn details Low 07/06/2020 Cephalexin Rash Low 01/01/2019 Codeine Other - please document in the comment field Low 03/19/2024 Morphine Hallucinations,Rash, Other - please document in the comment field Medium 04/21/2011 Morphine And Codeine Rash,Hallucinations Medium 2012 Penicillins Rash,Other - please document in the comment field Low 12/21/2018 Pravastatin Unknown - Patient states they do not know rxn details,Rash Medium 02/29/2016 Doesn't remember this rxn-from 3 yrs ago Rosuvastatin Other - please document in the comment field,Unknown - Patient states they do not know rxn details Low 10/29/2021 Leg cramps Cholestatin Unknown - Patient states they do not know rxn details Low 07/23/2019 Statins Other - please document in the comment field Low 10/22/2023 myalgia Tetracycline Rash,Other - please document in the comment field Low 01/01/2019 Tetracyclines & Related Rash Low 09/26/2014 Medications ezetimibe (Zetia) 10 MG tablet Take 1 tablet by mouth nightly. Active Calcium Carb-Cholecalcif bishnu 600-200 MG-UNIT tablet Take 1 tablet by mouth every morning. Active metoprolol succinate XL (Toprol-XL) 25 MG 24 hr tablet Take 1 tablet by mouth every morning. Active busPIRone (Buspar) 10 MG tablet Take 1 tablet by mouth 2 times a day as needed. Active latanoprost (Xalatan) 0.005 % ophthalmic solution Administer 1 drop into both eyes nightly. Active Fluticasone-Umec lidin-Vilant (Trelegy Ellipta) 200-62.5-25 MCG/ACT aerosol powder Inhale 1 puff 1 (one) time each day in the morning. 180 each 3 024 Active Pitavastatin Calcium (Livalo) 4 MG tabletIndication s:Type 1 diabetes mellitus with other specified complication (CMS/HCC),Dyslip idemia Take 1 tablet by mouth 1 (one) time each day. 90 tablet 3 024 Active cetirizine (ZyrTEC) 10 MG tablet Take 1 tablet by mouth every evening. Active levothyroxine (Synthroid, Levoxyl) 125 MCG tablet Take 1 tablet (125 mcg) by mouth 1 (one) time each day before breakfast. 90 tablet 3 024 Active oxygen (O2) gas Inhale 2 L nightly. via nasal canula Active DULoxetine (Cymbalta) [address] capsule Take 1 capsule (20 mg) by mouth 1 (one) time each day in the morning. Taking 80mg total 90 capsule 3 025 2025 Active nitroglycerin (Nitrostat) 0.[address] 1 tablet under the tongue every 5 minutes as needed for chest pain. Active acetaminophen (Tylenol) 500 MG tablet Take 2 tablets by mouth every 6 hours as needed. Active DULoxetine (Cymbalta) [address] capsule Take 1 capsule by mouth every morning. Do not crush or chew. Take in addition to one 20mg capsule for a total of 80mg daily. Active brimonidine 0.2 % OP ophthalmic solution Administer 1 drop into both eyes daily. 10 mL Active aspirin 81 MG EC tablet Take 1 tablet by mouth every evening. Active clobetasol (Temovate) 0.05 % cream Apply 1 Application topically 2 times a day as needed. Active Probiotic Product (acidophilus probiotic blend) capsule Take 1 capsule by mouth every morning. Active warfarin (Coumadin) 5 MG tablet Take 2.5 mg on Friday and 5mg the rest of the week and follow up with your warfarin pharmacist. 30 tablet Active furosemide (Lasix) 40 MG tablet Take 1 tablet by mouth daily. 30 tablet 025 Active folic acid (Folvite) 1 MG tablet Taking 1 tablet five days of the week 90 tablet 1 Active spironolactone (Aldactone) 25 MG tablet Take 0.25 tablets by mouth daily. 30 tablet Active Additional Information Patient taking differently: 12.5 mgOral Daily, Reported on 08/15/2024 hydroxychloroqui ne (Plaquenil) 200 MG tabletIndication s:Systemic lupus erythematosus (SLE) in adult (CMS/HCC) Take 1 tablet by mouth daily. 90 tablet 1 025 2024 Active insulin lispro (HumaLOG KWIKPEN) 100 UNIT/ML injection penIndications:T ype 1 diabetes mellitus with hyperglycemia (CMS/HCC) Inject 2-6 units before meals plus 1:60>150. Max tdd 30 units 30 mL 2 Active insulin glargine (Toujeo SoloStar) 300 UNIT/ML injection pen (1 UNIT DIAL)Indications :Type 1 diabetes mellitus with hyperglycemia (CMS/HCC) Inject 14 Units under the skin every morning. 4.5 mL 3 025 2025 Active Additional Information Patient taking differently: No details specified, Reason: Patient states taking 7 units in morning and 7 units at night, Reported on 08/25/2024 gabapentin (Neurontin) 300 MG capsule Take 1 capsule by mouth 2 times a day. 60 capsule 025 Active Probiotic Product (acidophilus probiotic blend) capsule Take 1 capsule by mouth daily. Active mycophenolate (CellCept) 500 MG tabletIndication s:Systemic lupus erythematosus (SLE) in adult ([facility]) Take 2 tablets by mouth 2 times a day. 360 tablet 1 Active Insulin Pen Needle (Pen Raymond) 30G X 5 MM misc use 4 per day 020 2024 Discontinued(E ntered in Error) lisinopril 20 MG tabletIndication s:Essential hypertension Take 1 tablet (20 mg total) by mouth 1 (one) time each day. Take one tablet each morning 90 tablet 3 022 2021 Discontinued gabapentin (Neurontin) 300 MG capsule Take 1 capsule during the day and 3 capsules at night. 120 capsule 2 025 2024 Discontinued diclofenac (Voltaren) 1 % topical gel Place 1-2 g on the skin 2 (two) times a day. Apply as directed to Lower Back 100 g 3 2024 Additional Information Patient not taking.Reported on 08/04/2024 insulin glargine (Toujeo SoloStar) 300 UNIT/ML injection pen (1 UNIT DIAL)Indications :Type 1 diabetes mellitus with hyperglycemia ([facility]) Inject 13 Units under the skin daily. 4.5 mL 2 2024 Discontinued(R eorder) insulin lispro (HumaLOG KWIKPEN) 100 UNIT/ML injection penIndications:T ype 1 diabetes mellitus with hyperglycemia ([facility]) Inject 3-4 units before breakfast and lunch, 2-3 units before dinner and 1:75>160 mg/dl. Max tdd 30 units 15 mL 2 025 2024 Discontinued(R eorder) amLODIPine (Norvasc) 5 MG tablet Take 1 tablet by mouth every morning. 025 2024 Discontinued mycophenolate (CellCept) 500 MG tabletIndication s:Systemic lupus erythematosus (SLE) in adult ([facility]) Take 3 tablets by mouth 2 times a day. 180 tablet 025 2024 Discontinued amLODIPine (Norvasc) 2.5 MG tablet Take 1 tablet by mouth nightly. 025 2024 Discontinued(E ntered in Error) prednisoLONE acetate (Pred-Forte) 1 % ophthalmic suspension Administer 1 drop into the right eye 4 times a day. 025 2024 Discontinued(S top Taking at Discharge) moxifloxacin (Vigamox) 0.5 % ophthalmic solution Administer 1 drop into the right eye 4 times a day. 025 2024 Discontinued(S top Taking at Discharge) amLODIPine (Norvasc) 5 MG tablet Take 1 tablet by mouth daily. 2024 Discontinued(S top Taking at Discharge) mycophenolate (CellCept) 500 MG tabletIndication s:Systemic lupus erythematosus (SLE) in adult ([facility]) Take 2 tablets by mouth 2 times a day. 120 tablet 025 2024 Discontinued(R eorder) mycophenolate (CellCept) 500 MG tabletIndication s:Systemic lupus erythematosus (SLE) in adult ([facility]) Take 2 tablets by mouth 2 times a day. 120 tablet 5 025 2024 Discontinued(R eorder) Active Problems Problem Noted Date Diagnosed Date Type 2 diabetes mellitus wit hout complication, with long-term current use of insulin 08/14/2024 Acute on chronic congestive heart failure 2024 Heart failure with preserved ejection fraction 0 08/04/2024 Atrial fibrillation 08/04/2024 Pulmonary hypertension 08/04/2024 Type 1 diabetes mellitus with hyperglycemia 07/09 Acute on chronic hypoxic respiratory failure 07/2024 Acute on chronic heart failu re with preserved ejection fraction 05/25/2024 LV (left ventricular) mural thrombus 05/25/2024 Streptococcal bacteremia 05/19/2024 Bacterial pneumonia 05/13/2024 Acute hypoxic respiratory failure 04/29/2024 Overview (04/30/2024): - Pt had the flu last week; still recovering ; wet cough still lingers - CT shows atelectasis likeley due to shallow breaths from T12 compression fracture pain - Pt saturating well on room air prior to discharge PLAN - Pt to continue with respiratory spirometry while at home to aid in airflow and opening of airway Influenza A (H1N1) 04/18/2024 04/18/2024 Compression fracture of T12 vertebra 04/18/2024 04/18/2024 Overview (04/30/2024): -CT T-/L-spine (04/18/24): acute fracture of the T12 vertebral body that has lost 50% of vertebral body height and is 3 column involving the posterior elements of T11; there is retropulsion of fracture fragments resulting in moderate spinal canal narrowing -uses rolling walker at baseline -Ortho Spine consulted, advised no acute surgical intervention, recommended: Custom brace out of bed for max 12 weeks no bending, twisting, lifting>10lbs PT/OT consulted Dysphonia 04/12/2024 Left ventricular apical thrombus 02/18/2024 Overview (04/16/2024): - Was hospitalized in January and February, incidentally found left apical thrombus, anticoagulation has been switched to warfarin. Follows with the [facility] anti-coagulation clinic closely. Coronary atherosclerosis of artery bypass graft 02/18/2024 Insomnia 10/13/2023 Neuropathy 04/07/2023 Restless leg 12/26/2022 Overview (04/16/2024): - Reporting restless leg symptoms since failed spinal cord stimulator. - Chronic, significantly improved with increased gabapentin dose. As state above, increase to 300 mg AM and 900 mg of gabapentin at bedtime for pain/RLS symptoms. (CSA signed 2021). Assessment & Plan (12/26/2022 9:44 AM EDT): - Reporting restless leg symptoms since failed spinal cord stimulator. - On gabapentin for peripheral neuropathy which can also be used for RLS. Will increase dose to 400 mg at bedtime as tolerated. Discussed side effects/adverse reactions in detail. Osteopenia 12/26/2022 Overview (02/11/2023): - Last DEXA 01/2023 with osteopenia, no treatment indicated, repeat 01/2025. Assessment & Plan (01/09/2023 8:44 AM EDT): - Seen on DEXA in 2020, repeat due 2022, ordered. At high risk for falls 12/03/2022 Overview (04/16/2024): - Fall precautions. Presence of cardiac pacemaker 11/18/2022 Chronic hypoxic respiratory failure 08/23/2022 Overview (04/30/2024): - Follows with pulmonary. Charcot's joint of ankle, left 05/16/2022 GERD (gastroesophageal reflux disease) Overview (02/06/2022): - On no medications. 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 Once the spinal stimulator was removed she was unable to walk, unable to feel her feet, and had difficulty with urinating and having bowel movements due to retention. Assessment & Plan (04/01/2022 9:49 AM EST): - Patient underwent spinal stimulator placement at the beginning of June 2021 and unfortunately suffered complications, spinal stimulator was removed shortly after placement. Once the spinal stimulator was removed she was unable to walk, unable to feel her feet, and had difficulty with urinating and having bowel movements due to retention. From the hospital she was sent to [facility] for rehab. - Slowly improving, now able to ambulate with walker and is regaining lower extremity function slowly. - For muscle spasms: Baclofen 10 mg daily PRN- refilled 04/01/22 - Following with outside neurologist (Dr. Irwin). Assessment & Plan (02/06/2022 2:43 PM EST): - Patient underwent spinal stimulator placement at the beginning of June 2021 and unfortunately suffered complications, spinal stimulator was removed shortly after placement. Once the spinal stimulator was removed she was unable to walk, unable to feel her feet, and had difficulty with urinating and having bowel movements due to retention. From the hospital she was sent to [facility] for rehab. - Slowly improving, now able to ambulate with walker and is regaining lower extremity function slowly. - For muscle spasms: Baclofen 10 mg daily PRN - Following with outside neurologist (Dr. Irwin). Assessment & Plan (10/10/2021 8:32 AM EDT): - Patient underwent spinal stimulator placement at the beginning of June 2021 and unfortunately suffered complications, spinal stimulator was removed shortly after placement. Once the spinal stimulator was removed she was unable to walk, unable to feel her feet, and had difficulty with urinating and having bowel movements due to retention. From the hospital she was sent to [facility] for rehab. - Slowly improving: still remains mostly wheelchair bound due weakness of the lower extremities, but is now able to intermittently stand and walk very short distances with assistance with a walker/rollator. She continues to have significant numbness and peripheral lower extremity neuropathy. She ideally would like home PT three times a week. She also some some DME needs, including a new narrow wheelchair (current wheelchair is too large to get through her doorways). Current wheelchair has also caused some injuries due to incorrect sizing (scars over hands and outer ankles). Ordered wheelchair and HHPT in 07/2021. - For pain relief, in addition to pain medications, was given baclofen to help with muscle spasms/sleep at [facility]: switched to Robaxin 500 mg nightly PRN in 07/2021. - Has EMG/NCS scheduled for 10/09/2021 for further evaluation. Has also been referred to neurology and neurosurgery for second opinions. Assessment & Plan (07/17/2021 4:20 PM EDT): - Patient underwent spinal stimulator placement at the beginning of June 2021 and unfortunately suffered complications, spinal stimulator was removed shortly after placement. Once the spinal stimulator was removed she was unable to walk, unable to feel her feet, and had difficulty with urinating and having bowel movements due to retention. From the hospital she was sent to [facility] for rehab. - Slowly improving: still remains mostly wheelchair bound due weakness of the lower extremities, but is now able to intermittently stand and walk very short distances with assistance with a walker/rollator. She continues to have significant numbness and peripheral lower extremity neuropathy. She ideally would like home PT three times a week. She also some some DME needs, including a new narrow wheelchair (current wheelchair is too large to get through her doorways). Current wheelchair has also caused some injuries due to incorrect sizing (scars over hands and outer ankles). Ordered wheelchair and HHPT. - For pain relief, in addition to pain medications, was given baclofen to help with muscle spasms/sleep at [facility]: switched to Robaxin 500 mg nightly PRN. Assessment & Plan (07/17/2021 1:31 PM EDT): - Patient underwent spinal stimulator placement at the beginning of June 2021 and unfortunately suffered complications, spinal stimulator was removed shortly after placement. Once the spinal stimulator was removed she was unable to walk, unable to feel her feet, and had difficulty with urinating and having bowel movements due to retention. From the hospital she was sent to [facility] for rehab. - Encouraged patient to contact surgeon (Dr. Ortiz) to discuss next steps and to discuss prognosis. Diastolic dysfunction 07/17/2021 Overview (01/05/2024): - Echocardiogram 11/27/2023: LVEF 55-60% with grade II diastolic dysfunction. Assessment & Plan (08/12/2023 2:51 PM EDT): HFpEF (EF 55-60% in 08/2022) CAD/[place] s/p Stent + CABG (1999) CVA (2017) A-Fib (Eliquis) -Continue home apixaban, aspirin, losartan, metoprolol -Close follow up with cardiology 09/18/23 Limited mobility 07/17/2021 Overview (04/16/2024): - Lower extremity weakness, numbness, peripheral neuropathy since spinal stimulator placement and subsequent removal. Assessment & Plan (10/10/2021 8:33 AM EDT): - Lower extremity weakness, numbness, peripheral neuropathy since spinal stimulator placement and subsequent removal. - Requested DME and HHPT in 07/2021. Assessment & Plan (07/17/2021 4:22 PM EDT): - Lower extremity weakness, numbness, peripheral neuropathy since spinal stimulator placement and subsequent removal. - Requested DME and HHPT. Genitourinary syndrome of menopause 05/08/2021 Overview (02/06/2022): - History of vaginal atrophy, urinary urgency, frequency, incontinence. No longer on vaginal estrogen. Assessment & Plan (07/17/2021 4:21 PM EDT): - On vaginal estrogen for vaginal atrophy, urinary urgency, frequency, incontinence. Assessment & Plan (05/08/2021 5:37 PM EST): - Vaginal atrophy noted on physical exam. Patient has chronic increased urinary frequency and urgency. Also noted vulvovaginal itching over the last week. - Urinalysis in clinic today not consistent with UTI (although will confirm with microscopy and urine culture). - Symptoms are consistent with genitourinary syndrome of menopause. Will trial topical estradiol cream. Discussed potential side effects in detail in clinic today. Healthcare maintenance 04/09/2021 Overview (04/16/2024): Healthcare Maintenance Immunizations Immunization History Administered Date(s) Administered Hep A, Adult 06/11/2018, 06/11/2018, 06/11/2018, 01/23/2019, 01/23/2019, 01/24/2019, 01/24/2019, 01/24/2019 Influenza, High-dose, Split Virus, Trivalent, Injectable, preservative free 11/27/2023 Influenza, Unspecified 12/09/2019 Influenza, high-dose, quadrivalent 12/19/2017, 12/19/2017, 12/19/2017, 01/18/2019, 01/18/2019, 01/18/2019, 01/18/2019, 12/05/2020, 12/05/2020, 12/05/2020, 01/28/2022, 01/09/2023 Influenza, seasonal, injectable 12/08/2018 [employer] COVID-19 Vaccine (Purple Cap) 12+ 03/30/2020, 03/30/2020, 04/22/2020, 04/22/2020 Pneumococcal Conjugate PCV 13 07/02/2016, 07/02/2016, 07/02/2016, 08/06/2019, 08/06/2019, 08/06/2019 Pneumococcal Polysaccharide PPV23 06/11/2018, 06/11/2018, 06/11/2018, 12/09/2019 Zoster, Recombinant 06/11/2018, 06/11/2018, 06/11/2018, 01/23/2019, 01/23/2019, 01/24/2019, 01/24/2019, 01/24/2019 Recommended Tdap, COVID booster. Cancer Screenings Cervical cancer: Aged out of screening. Breast cancer: Last mammogram 11/2021 with BIRADS 2, repeat overdue, ordered 12/2023. Colon cancer: Last colonoscopy 10/17/2020 at [facility] (Dr. Sujit Christine), personally visualized records: one 4 mm polyp in the descending/sigmoid colon, pathology reports polypoid portion of colonic mucosa with no significant histopathologic change . Random colon biopsies were negative for histopathologic changes. Repeat colonoscopy due: 2025 Lung cancer: never smoker, not indicated Other Screenings DEXA: Last DEXA in 01/2023: Patient has osteopenia by WHO criteria. No treatment indicated. Labs ASCVD: Last lipid panel 06/2023: The ASCVD Risk score (Rani VEGAS, et al., 2019) failed to calculate for the following reasons: Risk score cannot be calculated because patient has a medical history suggesting prior/existing ASCVD A1c: Lab Results Component Value Date HGBA1C 8.0 01/26/2024 HIV: One time screen negative 04/2020. Hepatitis C: One time screen negative 04/2020. Referrals Dentist: Follows regularly. Dermatology: Follows regularly. Ophthalmology: Follows regularly. Assessment & Plan (01/09/2023 8:37 AM EDT): Today was a preventative health visit: Patient was counseled on the following: Vaccinations Cancer Screenings Lifestyle Modifications Immunizations Immunization History Administered Date(s) Administered Hep A, Adult 06/11/2018, 06/11/2018, 06/11/2018, 01/23/2019, 01/23/2019, 01/24/2019, 01/24/2019, 01/24/2019 Influenza, Unspecified 12/09/2019 Influenza, high-dose, quadrivalent 12/19/2017, 12/19/2017, 12/19/2017, 01/18/2019, 01/18/2019, 01/18/2019, 01/18/2019, 12/05/2020, 12/05/2020, 12/05/2020, 01/28/2022, 01/09/2023 Influenza, seasonal, injectable 12/08/2018 [facility] [employer] COVID-19 Vaccine (Purple Cap) 12+ 03/30/2020, 03/30/2020, 04/22/2020, 04/22/2020 Pneumococcal Conjugate PCV 13 07/02/2016, 07/02/2016, 07/02/2016, 08/06/2019, 08/06/2019, 08/06/2019 Pneumococcal Polysaccharide PPV23 06/11/2018, 06/11/2018, 06/11/2018, 12/09/2019 Zoster, Recombinant 06/11/2018, 06/11/2018, 06/11/2018, 01/23/2019, 01/23/2019, 01/24/2019, 01/24/2019, 01/24/2019 Recommended Tdap. Cancer Screenings ? Cervical cancer: Aged out of screening. ? Breast cancer: Last mammogram 11/2021 with BIRADS 2, repeat due 11/2022 (scheduled 01/23/2023). ? Colon cancer: Last colonoscopy 10/17/2020 at [facility] (Dr. Sujit Christine), personally visualized records: one 4 mm polyp in the descending/sigmoid colon, pathology reports polypoid portion of colonic mucosa with no significant histopathologic change . Random colon biopsies were negative for histopathologic changes. Repeat colonoscopy due: 2025 ? Lung cancer: never smoker, not indicated Other Screenings ? DEXA: Last DEXA in 11/2020: Patient has osteopenia by WHO criteria. Based off FRAX risk assessment (11.7% for major osteoporotic fracture and 1.9% for hip fracture over the next 10 years) patient does not meet criteria for treatment. Next DEXA overdue, ordered. Labs ASCVD: Last lipid panel 05/2022: The ASCVD Risk score (Rani VEGAS, et al., 2019) failed to calculate for the following reasons: ? The patient has a prior [place] or stroke diagnosis A1c: Lab Results Component Value Date HGBA1C 7.9 12/11/2022 ? HIV: One time screen negative 04/2020. ? Hepatitis C: One time screen negative 04/2020. Referrals ? Dentist: Follows regularly. ? Dermatology: Follows regularly. ? Ophthalmology: Follows regularly. Assessment & Plan (02/06/2022 2:46 PM EST): Immunizations Immunization History Administered Date(s) Administered Hep A, Adult 06/11/2018, 06/11/2018, 06/11/2018, 01/23/2019, 01/23/2019, 01/24/2019, 01/24/2019, 01/24/2019 Influenza, Unspecified 12/09/2019 Influenza, high-dose, quadrivalent 12/19/2017, 12/19/2017, 12/19/2017, 01/18/2019, 01/18/2019, 01/18/2019, 01/18/2019, 12/05/2020, 12/05/2020, 01/28/2022 Influenza, seasonal, injectable 12/08/2018 [facility] COVID-19 Vaccine (Purple Cap) 12+ 03/30/2020, 03/30/2020, 04/22/2020, 04/22/2020 Pneumococcal Conjugate PCV 13 07/02/2016, 07/02/2016, 07/02/2016, 08/06/2019, 08/06/2019, 08/06/2019 Pneumococcal Polysaccharide PPV23 06/11/2018, 06/11/2018, 06/11/2018, 12/09/2019 Zoster, Recombinant 06/11/2018, 06/11/2018, 06/11/2018, 01/23/2019, 01/23/2019, 01/24/2019, 01/24/2019, 01/24/2019 Recommend COVID-19 Booster and Tdap booster. Cancer Screenings ? Cervical cancer: Aged out of screening. ? Breast cancer: Last mammogram 11/2021 with BIRADS 2, repeat due 11/2022. ? Colon cancer: Last colonoscopy 10/17/2020 at [facility] (Dr. Sujit Christine), personally visualized records: one 4 mm polyp in the descending/sigmoid colon, pathology reports polypoid portion of colonic mucosa with no significant histopathologic change . Random colon biopsies were negative for histopathologic changes. Repeat colonoscopy due: 2025 ? Lung cancer: never smoker, not indicated Other Screenings ? DEXA: Last DEXA in 11/2020: Patient has osteopenia by WHO criteria. Based off FRAX risk assessment (11.7% for major osteoporotic fracture and 1.9% for hip fracture over the next 10 years) patient does not meet criteria for treatment. Next DEXA due 11/2022. Labs ? ASCVD: 33.9% based on last lipid panel 04/2020. On statin. A1c: Lab Results Component Value Date HGBA1C 8.3 01/28/2022 ? HIV: One time screen negative 04/2020. ? Hepatitis C: One time screen negative 04/2020. Referrals ? Dentist: Follows regularly. ? Dermatology: Discuss at future visits. ? Ophthalmology: Follows regularly. Assessment & Plan (04/09/2021 3:53 PM EST): Preventative Exam and Counseling Completed Today Counseling was provided on the following items: Lifestyle Changes: Healthy Diet, Healthy Weight, Healthy Exercise Calcium and Vitamin D Supplementation and Weight Bearing Exercise for Bone Health Health Maintenance: Infectious Disease Screening: One Time HIV Screen: current and negative without new risk factors One Time Hepatitis C Screen: current and negative without new risk factors Vaccinations: Recommended COVID-19 booster and Tdap booster 03/2021. Cancer Screening: Colonoscopy: Last date completed and Findings: In 2020, reportedly normal. Next Due: 2030 (will attempt to obtain records). Mammogram: Last date completed and Findings: 01/2020 with BIRADS 1 Next Due: Overdue, scheduled 06/2021 Pap: N/A (aged out of screening) Lung Cancer Screening: N/A nonsmoker Cardiovascular And Diabetes Screening: Lipids: Last date completed: 04/2020 Next Due: After 04/2021, ordered today 03/2021 A1C: Last date completed: 8.1% in 02/2021 Next Due: In 3 months with endocrinology. BP NOT at goal > 140/90 Mood: PHQ 2 Negative Recommended: Up to date on Hearing Evaluation / Dental Visit / Eye Exam Bone Health: Up to date on DEXA scan, recommended appropriate vitamin D and Calcium intake Fall Plan of Care: Anticipatory Guidance on Fall Prevention Given Advance Directive Planning: Counseled on Advance Directives and paperwork and instructions given Referrals Made Today: None Home Medical Supply Companies and Services Provided: N/A Personal Prevention Plan was Provided and Reviewed SLE (systemic lupus erythematosus) 04/09/2021 Overview (12/26/2022): - Chronic, worsening. - Pleural effusion is believes to be from SLE. - Following closely with [facility] for management. Assessment & Plan (12/26/2022 9:45 AM EDT): - Chronic, worsening. - Pleural effusion is believes to be from SLE. - Following closely with [facility] for management. Assessment & Plan (12/03/2022 4:38 PM EDT): -Called rheum to see if they will put patient on waitlist for sooner appoitment -continue to use dexamethasone swish and spit, and magic mouthwash for ulcers. Obstructive lung disease 04/09/2021 Overview (12/26/2022): - Pulmonary function testing in the past revealed severe obstructive lung disease. No smoking history. - On Trelegy. Follows with pulmonary team. Assessment & Plan (07/17/2021 4:23 PM EDT): - Pulmonary function testing in the past revealed severe obstructive lung disease. No smoking history. - Was switched to Trelegy inhaler at [facility], refilled today 07/2021. Continues on O2 at night. - Established with pulmonology, following. Assessment & Plan (04/09/2021 4:10 PM EST): - Pulmonary function testing revealed severe obstructive lung disease. No smoking history. - Established with pulmonology, following. Pleural effusion 04/09/2021 Overview (01/09/2023): - Chronic since 2020, now improved. - Required multiple hospitalizations within the last few months: status post left pleuroscopy, pleural biopsy, PleurX placement and chemical pleurodesis 11/19/2022. Removed 12/2022. - Pulmonary team believes underlying etiology is secondary to SLE. - Following with the pulmonary team closely. Assessment & Plan (12/26/2022 9:43 AM EDT): - Chronic since 2020, worsening. - Required multiple hospitalizations within the last few months: status post left pleuroscopy, pleural biopsy, PleurX placement and chemical pleurodesis 11/19/2022. - Pulmonary team believes underlying etiology is secondary to SLE. - Following with the pulmonary team closely. Assessment & Plan (12/03/2022 4:34 PM EDT): -recently discharged 11/29/22 with Left Pleurx catheter placement, HH to drain and clean dressing every 48 hours -Patient states HH did not receive drainage Kit ( jairo drain) and no dressing change was performed -Attempted to drain Pleurx in clinic today, but did not have proper materials available in clinic; called ED and OR materials and found that jairo drain is on back order -Patient initialy presented with O2 sat at 84% on RA as she traveled an hour without her oxygen, and O2 reading of 97% on 2L NC -Dressing changed in clinic, no foul odor noted or drainage, sutures intact -patient not in acute distress, but sent to the ED for further consultation due to not having Pleurx drained since discharge, causing increase SOA for the patient. -[facility] called at 15:49, Spoke to Charge Keanu Tolbert -patient has friend who will drive her to the ED Assessment & Plan (04/09/2021 4:09 PM EST): - CT chest in 12/2020 with bilateral effusions. - s/p thoracentesis in 02/2021 with no evidence of malignancy. Diabetic neuropathy with neurologic complication 09/06/2020 Overview (04/16/2024): - Chronic, stable. - For neuropathy: On gabapentin. Controlled substance agreement signed 03/2021, UDS completed and appropriate 03/2021. Assessment & Plan (12/26/2022 9:32 AM EDT): - Chronic, stable. - For neuropathy: On gabapentin. Controlled substance agreement signed, UDS completed and appropriate 03/2021 (repeat ordered 12/2022). Assessment & Plan (07/17/2021 4:18 PM EDT): - For neuropathy: On gabapentin. Controlled substance agreement signed, UDS completed and appropriate 03/2021, PDMP reviewed, appropriate. Assessment & Plan (11/24/2020 4:34 PM EDT): With [facility]. No lesions today. Continue podiatry and foot checks. On oral through pcp Diabetic retinopathy 09/06/2020 Overview (04/09/2021): - Follows with retina specialist. Assessment & Plan (11/24/2020 8:52 AM EDT): Keep eye exam utd. Control bg Hyperlipidemia 09/06/2020 Overview (04/16/2024): - Last lipid panel 06/2023: The ASCVD Risk score (Rani DK, et al., 2019) failed to calculate for the following reasons: Risk score cannot be calculated because patient has a medical history suggesting prior/existing ASCVD - On pitavastatin (Livalo) 4 mg daily, as patient was unable to tolerate numerous statins (rosuvastatin, atorvastatin, pravastatin, simvastatin). No side effects on Livalo. - Strongly recommend that patient continue on Livalo, as she is high risk for recurrent [place]/stroke. Also on Zetia. Assessment & Plan (10/10/2021 8:28 AM EDT): - Refilled Livalo 08/2021. Assessment & Plan (04/09/2021 4:05 PM EST): - ASCVD of 33.9% based on lipid panel from 04/2020. - On pitavastatin (Livalo) 4 mg daily, as patient was unable to tolerate numerous statins (rosuvastatin, atorvastatin, pravastatin, simvastatin). No side effects on Livalo. - Strongly recommend that patient continue on Livalo, as she is high risk for recurrent [place]/stroke. - Repeat lipid panel ordered 03/2021 (to be completed after 04/2021). Assessment & Plan (11/24/2020 8:49 AM EDT): Continue statin and zetia. Lipid utd. Does not tolerate high dose statin EWELINA (obstructive sleep apnea) 09/06/2020 Overview (04/30/2024): CPAP intolerant, wears O2 2L NC Osteoarthritis 09/06/2020 Complete heart block 08/18/2018 Overview (02/06/2022): - s/p PPM History of CVA (cerebrovascular accident) 2018 Overview (02/06/2022): - Unknown history. Paroxysmal atrial fibrillation 08/08/2017 Overview (04/16/2024): - [id number] of 6. - s/p PPM - Rate control: metoprolol ER 50 mg daily - Anticoagulation: warfarin - Follows with [facility] cardiology. Hypertension 12/26/2016 Overview (12/26/2022): - Chronic, controlled on BB, ARB. Assessment & Plan (02/06/2022 2:42 PM EST): - Well controlled on amlodipine 2.5 mg daily, metoprolol ER 50 mg daily. - Lisinopril was stopped while hospitalized with [facility], repeat RFP pending. Assessment & Plan (07/17/2021 4:19 PM EDT): - Well controlled on amlodipine 5 mg daily, lisinopril 20 mg daily, metoprolol ER 50 mg daily. Tear film insufficiency 05/31/2015 12/27/19 23 Overview (12/26/2022): From Automated Load;Provider: Doron Zhu;Status: Active Epiretinal membrane 04/12/2015 Type 1 diabetes mellitus with other specified co mplication 07/07/2013 Overview (01/05/2024): - Complicated by neuropathy, nephropathy, retinopathy, currently struggling with hyperglycemia. Last A1c 8.0% in 10/2023. Follows closely with endocrinology. - On statin, ARB - Follows with Endocrinology. Wears Dexcom CGM. Assessment & Plan (02/06/2022 2:53 PM EST): - Complicated by neuropathy, nephropathy, retinopathy (follows with retina specialist). Follows with podiatry. - Last A1c 7.8% in 09/2021. - On statin, ACEi held during hospitalization. - Follows with Endocrinology. Wears Dexcom CGM. Assessment & Plan (07/17/2021 1:32 PM EDT): - Complicated by neuropathy, retinopathy (follows with retina specialist). Follows with podiatry. - Last A1c 8.1% in 02/2021. - On statin, ACEi. - For neuropathy: On gabapentin. Controlled substance agreement signed. UDS completed and appropriate 03/2021, PDMP reviewed, appropriate. - Follows with Endocrinology. On Toujeo. Wears Dexcom CGM. Endocrinology will contact patient to discuss insulin adjustments while at [facility]. Assessment & Plan (04/09/2021 4:01 PM EST): - Complicated by neuropathy, retinopathy (follows with retina specialist). Follows with podiatry. - Last A1c 8.1% in 02/2021. - On statin, ACEi. - For neuropathy: will take over gabapentin prescription (300 mg BID). Controlled substance agreement signed. UDS completed and appropriate 03/2021, PDMP reviewed, appropriate. - Follows with Endocrinology. On Toujeo. Wears Dexcom CGM. Assessment & Plan (11/24/2020 4:37 PM EDT): -continue sensor -a1c above goal but having lows torrey over night -reduce insulin to toujeo to 20 units daily and reduce hs humalog to 5 units with dinner -get uptdated cmp and tsh -rto 1m, call sooner prn Chronic kidney disease 05/05/2012 Overview (02/11/2023): - Baseline creatinine <1.0. - Has microalbuminuria and is on ACEi. Assessment & Plan (11/24/2020 8:51 AM EDT): Microalbuminuria, on acei, advise bp and bg control Atherosclerotic heart diseas e of [place] coronary artery without angina pectoris 05/05/2012 Overview (04/16/2024): - s/p CABG in 1999. NSTEMI s/p balloon angioplasty 05/2020 at [facility]. Follows with outside type copyist. Assessment & Plan (11/24/2020 8:49 AM EDT): utd with cards appt Depression 05/05/2012 Overview (04/16/2024): - Chronic, stable. On Cymbalta, Buspar. Did not tolerate Wellbutrin. Following with outside psychiatry. Fibromyalgia 05/05/2012 Overview (12/26/2022): - Cymbalta. Acquired hypothyroidism 05/05/2012 Overview (01/05/2024): - Last TSH 0.77 in 06/2023 - On levothyroxine 125 mcg daily. Assessment & Plan (11/24/2020 4:37 PM EDT): Due for tsh recheck, order Resolved Problems Problem Noted Date Diagnosed Date Resolved Date Heart failure 05/20/2024 05/25/2024 Hyponatremia 04/18/2024 04/30/2024 LV (left ventricular) mural thrombus 02/25/2024 04/16/2024 Atrial fibrillation, unspecified type 02/25/2024 04/16/2024 Non-pressure chronic ulcer o f other part of left foot with fat layer exposed 02/18/2024 025 Cellulitis of foot 02/18/2024 Cellulitis of toe 02/18/2024 04/16/2024 Cellulitis 02/13/2024 03/08/2024 Cellulitis of right leg 02/12/202402/09 COPD exacerbation 01/30/2024 04/16/2024 Other dysphagia 01/29/2024 04/30/2024 Aspiration pneumonitis 01/29/202404/16 Chest pain 07/30/2023 01/05/2024 Acute hypoxic respiratory failure 07/29/2023 10/13/2023 Assessment & Plan (08/12/2023 4:11 PM EDT): -CT PE findings concerning for aspiration however patient denies any history of dysphagia or aspiration events. - S/p Solu-Medrol in ED, 2nd dose of prednisone on 07/30, dcd thereafter given patient with significant hyperglycemia and rapid improvement in respiratory status steroids; patient at baseline respiratory status on day of discharge -Continued home immunosuppression with hydroxychloroquine and mycophenolate Continued nightly 2L O2 -importance of monitoring symptoms -reports dry yellow sputum occasionally with coughing -advised to take mucinex to help thinning secretions and expel them to prevent possible PNA -spoke about drinking water as well to help thinning secretions -inflammation might take some time to reduce and therefore monitor O2 settings -follow up with pcp 10/03/23 -call the discharge clinic before PCP visit if having complications/ new or worsening symptoms Community acquired pneumonia of right lower lobe of lung 01/27/2023 12/31/2023 Ataxia 12/26/2022 12/26/2022 12/26/2022 D-dimer, elevated 12/26/2022 12/26/2022 12/26/2022 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 Hyperglycemia 11/12/2022 12/26/2022 Hyponatremia 09/16/2022 02/11/2023 Overview (12/26/2022): - Chronic, last sodium level 132 in 11/2022. Repeat BMP ordered 12/2022. Assessment & Plan (12/26/2022 9:38 AM EDT): - Chronic, last sodium level 132 in 11/2022. Repeat BMP ordered 12/2022. Assessment & Plan (12/04/2022 10:01 AM EDT): -was going to obtain ISTAT in clinic, however patient had to go to the ED for draining Pleurx catheter -Patient will increase sodium intake in small amount and follow up with PCP for further labs and cardiology to manage lasix dosing -PCP appointment 12/25/22 Assessment & Plan (09/16/2022 3:05 PM EDT): -patient has been having telephone conversations with cardiology at the [facility] and is currently taking 20mg lasix and 2.5mg of norvasc -ISTAT sodium level 135 -Patient is going to make an appointment with cardiology within a month to follow up for labs and assess if there is a need for fluid restriction -Patient aware of all upcoming appointments Corns and callosities 05/16/20222022 Red eye 05/13/2022 12/26/2022 Overview (05/13/2022): - Concerning for bacterial or viral conjunctivitis vs. Scleritis. - Needs THOMPSON eye exam. - Was able to get patient in with [facility] ophthalmology right after our clinic appointment (where she follows regularly). - In the meantime, provided erythromycin eye ointment for bacterial conjunctivitis treatment. Assessment & Plan (05/13/2022 3:58 PM EST): - Concerning for bacterial or viral conjunctivitis vs. Scleritis. - Needs THOMPSON eye exam. - Was able to get patient in with [facility] ophthalmology right after our clinic appointment (where she follows regularly). - In the meantime, provided erythromycin eye ointment for bacterial conjunctivitis treatment. 2019-nCoV acute respiratory disease 05/07/2022 12/26/2022 Ringworm of body 04/09/2022 12/26/2022 Overview (04/09/2022): - Exam findings most consistent with ringworm, exposure suspected to be indoor/outdoor dog. Image available in media tab. - Continue treatment with clotrimazole cream, advised patient that may take a couple weeks for rash to fully resolve - If no improvement with antifungals, next on differential would be skin manifestation of SLE ie discoid lupus, though this is unlikely given lack of other systemic findings concerning for acute flare and lack of history of discoid manifestations. However, if rash still present in a month, would consider topical steroid next. Diabetic ulcer of left foot associated with type 1 diabetes mellitus 04/09/2022 12/26/2022 Overview (04/09/2022): - Image available in media tab - Lesion with debris, surrounding area of induration, associated area concerning for subdermal hemorrhage vs necrosis - Follows with Podiatry, has wound care salve and bandages at home. Non weight bearing recs per podiatry - Will refer to Wound Care for urgent debridement given concerning appearance - Defer oral abx at present given lack of systemic symptoms Otorrhea of left ear 02/06/2022 023 Overview (02/06/2022): - Patient reports clear otorrhea after showering, no obvious pathology on exam today. - ENT referral 01/2022. Assessment & Plan (02/06/2022 2:54 PM EST): - Patient reports clear otorrhea after showering, no obvious pathology on exam today. - ENT referral 01/2022. Incontinence of feces 01/18/20222022 Overview (02/06/2022): - Based on description more consistent with constipation. Some improvement with bowel regimen. - Last colonoscopy performed at [facility] in Oct 2020 and unremarkable. Assessment & Plan (02/06/2022 2:48 PM EST): - Based on description more consistent with constipation. Some improvement with bowel regimen. - Last colonoscopy performed at [facility] in Oct 2020 and unremarkable. Anal fissure 10/21/2021 02/06/2022 Overview (10/21/2021): -Patient described pain with defecation and wiping, no bleeding -Denied any obvious hemorrhoids, history of anal fissure. -Will prescribe topical Lidocaine 3%/Hydrocortisone 0.5% cream for pain relief -Also instructed patient that she can apply Desitin cream to help reduce irritation. Diabetic ulcer of right ankle 10/10/2021 12/26/2022 Overview (02/06/2022): - Developed ulcer of the right foot after injuring herself on her wheelchair. - She has had slow healing of this ulcer secondary to her T1DM - Ulcer appears to be healing well today, nearly resolved. - Continue to follow at future visits to ensure healing. Assessment & Plan (02/06/2022 2:39 PM EST): - Developed ulcer of the right foot after injuring herself on her wheelchair. - She has had slow healing of this ulcer secondary to her T1DM - Ulcer appears to be healing well today, nearly resolved. - Continue to follow at future visits to ensure healing. Assessment & Plan (10/10/2021 8:34 AM EDT): - Developed ulcer of the right foot after injuring herself on her wheelchair. - Concerns about infection by home health, does not appear acutely infected on exam today, however wound is slow to heal with history of T1DM. - Wound clinic referral made today. Provided with wound care supplies in the interim. - Strict return precautions given. Post-menopausal bleeding 05/08/2021 Overview (02/06/2022): - Isolated episode of vaginal spotting in early 2021, no recurrence. Was evaluated with OBGYN in 10/2021, no intervention at this time, if recurrence of bleeding will likely require endometrial biopsy. Assessment & Plan (02/06/2022 2:51 PM EST): - Isolated episode of vaginal spotting in early 2021, no recurrence. Was evaluated with OBGYN in 10/2021, no intervention at this time, if recurrence of bleeding will likely require endometrial biopsy. Assessment & Plan (05/08/2021 5:40 PM EST): - Three days of vaginal spotting over the last week. - No obvious etiology for vaginal bleeding on pelvic exam, there is vaginal atrophy and some vaginal wall irritation noted. - Transvaginal pelvic US to further evaluate source of bleeding. - OBGYN referral for consideration for endometrial biopsy. History of oral aphthous ulcers 04/09/2021 04/30/2024 Overview (12/26/2022): - Aphthous ulcers and dry mouth, likely secondary to SLE. Assessment & Plan (12/04/2022 10:00 AM EDT): -continue to use dexamethasone swish and spit -use magic mouthwash -Follow up with rheum and pcp for further management Assessment & Plan (02/06/2022 2:47 PM EST): - Aphthous ulcers and dry mouth, likely secondary to SLE. - Some improvement with triamcinolone ointment. Continue. Assessment & Plan (04/09/2021 4:06 PM EST): - Aphthous ulcers and dry mouth. - Recommended Biotene mouthwash PRN. Memory difficulties 04/09/2021 10/11/19 Overview (04/09/2021): - Occasional forgetfulness, cognitive impairment screen score today in clinic unremarkable. - We discussed symptoms in detail today, based on history/physical, likely age-related occasional forgetfulness, no concerns for dementia at this time. - Will do research into p-[id number] blood level measures that reportedly (per article that patient printed) potentially be associated with Alzheimer's Disease. Assessment & Plan (04/09/2021 4:13 PM EST): - Occasional forgetfulness, cognitive impairment screen score today in clinic unremarkable. - We discussed symptoms in detail today, based on history/physical, likely age-related occasional forgetfulness, no concerns for dementia at this time. - Will do research into p-tau21 blood level measures that reportedly (per article that patient printed) potentially be associated with Alzheimer's Disease. Fracture of left proximal fibula 04/09/2021 02/06/2022 Overview (07/17/2021): - Left proximal fibula fracture on 02/2021 after a mechanical fall. - Established with orthopedic surgery, no surgical intervention, WBAT. Assessment & Plan (04/09/2021 4:15 PM EST): - Left proximal fibula fracture on 02/2021 after a mechanical fall. - Established with orthopedic surgery, no surgical intervention, WBAT. Next appointment to be seen for follow-up is in 03/2021. Hypoglycemia due to type 1 diabetes mellitus 05/08/2021 Overview (11/24/2020): Decrease insulin. 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 021 Diabetes mellitus with diabe tic polyneuropathy 12/26/2017 09/07/2020 Global amnesia 12/26/2017 09/07/2020 Low magnesium levels 10/27/2017 021 Excess skin of eyelid 05/31/2015 12/26/20222022 Overview (12/26/2022): From Automated Load;Provider: Doron Zhu;Status: Active Disorder of breast 01/27/2014 1 Hypoglycemia 08/27/2012 12/26/2022 Old myocardial infarction 05/05/2012 Encounters Date Type Department Care Team Description 08/30/2024 Telephone [facility] Internal Medicine [address], [address] [place] [address] Alisa Kunz DO HCN Clinical Concern/Question 08/27/2024 Telephone [facility] Endocrinology [address] [place] [address] Katerine Donaldson 08/27/2024 Refill [facility] Medicine Specialties [address], [address] [place] [address] Ruthie Moy MD Systemic lupus erythematosus (SLE) in adult ([facility]) 08/27/2024 Telephone [facility] Medicine Specialties [address] [place] [address] Sarah Hernadez RN 08/25/2024 Patient Outreach POPULATION [facility] [address], [address] [place] [address] Patricia Yañez TRANSFER WORKER TCM Call 08/25/2024 Telephone [facility] Internal Medicine [address] [place] [address] Alisa Kunz DO HCN Clinical Concern/Question 08/25/2024 Telephone [facility] Medicine Specialties [address] [place] [address] Noris Yee MD 08/25/2024 Refill [facility] Medicine Specialties [address] [place] [address] Noris Yee MD Systemic lupus erythematosus (SLE) in adult ([facility]) 08/23/2024 Travel 08/22/2024 Travel 08/21/2024 Travel 08/20/2024 Travel 08/19/2024 Travel 08/18/2024 12:57 PM EDT - 08/18/2024 1:42 PM EDT Surgery Cardiac [facility] [address] [place] [phone] Brenden Zamora MD Right heart catheterization 08/18/2024 Travel 08/17/2024 Travel 08/16/2024 Patient Outreach [facility] [address] [place] [phone] Ekaterina Gómez Alli 08/15/2024 Travel 08/15/2024 [facility] Internal Medicine [address] [place] [id number] Alisa Kunz, DO 08/14/2024 3:16 PM EDT - 08/24/2024 3:19 PM EDT Hospital Encounter [facility] Inpatient [address] [place] [address] Jackson Puente MD Arndt, MD Flaca Theodore John B, MD Chadha, Jagriti, MD Pleural effusion (Primary Dx); Acute on chronic congestive heart failure, unspecified heart failure type (CMS/HCC); Shortness of breath; Systemic lupus erythematosus (SLE) in adult (CMS/HCC) Discharge Disposition: Home or Self Care 08/14/2024 Travel 08/12/2024 Telephone [facility] Internal Medicine [address], [address] [place] [address] Alisa Kunz, DO HCN Clinical Concern/Question 08/11/2024 Telephone [facility] Internal Medicine [address], [address] [place] [address] Alisa Kunz DO HCN Clinical Concern/Question 08/09/2024 Telephone [facility] [place] [address] [facility], [address] [place] [address] Cassius Gonzales MD HCN Clinical Concern/Question 08/06/2024 Telephone [facility] Medicine Specialties [address], [address]nd [place] [address] Ami Marley Edema; Shortness of Breath 08/06/2024 Telephone [facility] Endocrinology [address] [place] [address] Anne-Marie Kolb APRN 08/06/2024 Telephone [facility] Internal Medicine [address], 3rd [place] [address] Alisa Kunz, DO HCN Clinical Concern/Question 08/06/2024 Telephone [facility] Internal Medicine [address], 3rd [place] [address] Alisa Kunz, DO HCN Clinical Concern/Question 08/04/2024 2:20 PM EDT Office Visit [facility] Endocrinology [address] [place] [address] Anne-Marie Kolb, FOOD SAFETY TECHNICIAN Type 1 diabetes mellitus with hyperglycemia (CMS/HCC) (Primary Dx); Neuropathy; Hyperlipidemia, unspecified hyperlipidemia type 08/04/2024 10:45 AM EDT Office Visit [facility] [place] [address] [facility], [address] [place] [address] Cassius Gonzales MD Heart failure with preserved ejection fraction, unspecified HF chronicity (CMS/HCC) (Primary Dx); Atrial fibrillation, unspecified type (CMS/HCC); Chronic hypoxic respiratory failure; Presence of cardiac pacemaker; Heart failure, unspecified HF chronicity, unspecified heart failure type (CMS/HCC); Pulmonary hypertension (CMS/HCC) 08/04/2024 Travel 07/30/2024 4:20 PM EDT Office Visit [facility] Otolaryngology [address], [address]rd [place] [address] Andra Herman MD Dysphonia (Primary Dx) 07/30/2024 Travel 07/30/2024 Telephone [facility] Otolaryngology [address], [address] [place] [address] Jarad Tsai Appointment 07/28/2024 Telephone [facility] Medicine Specialties [address], [address]nd [place] [address] Ami Marley A Results 07/28/2024 Patient Outreach [facility] [address] [facility] [address], [address] [place] [address] Zully Caldwell LPN Follow-up 07/23/2024 Telephone [facility] Internal Medicine [address], 3rd [place] [address] Alisa Kunz, DO HCN Clinical Concern/Question 07/21/2024 10:35 AM EDT - 07/21/2024 11:59 PM EDT Hospital Encounter [facility] Radiology [address], 1st [place] [address] Bilateral pleural effusion Discharge Disposition: Home or Self Care 07/21/2024 9:10 AM EDT Office Visit [facility] Medicine Specialties [address], [address]nd [place] [address] Sadiq Osborne MBBS Bilateral pleural effusion (Primary Dx); Systemic lupus erythematosus (SLE) in adult ([facility]); Rash and other nonspecific skin eruption; Primary osteoarthritis of knees, bilateral; High risk medication use 07/21/2024 Travel 07/20/2024 9:40 AM EDT Office Visit [facility] [address] [place] [address] AshleyJune R, FOOD SAFETY TECHNICIAN Acute on chronic hypoxic respiratory failure (Primary Dx); Anticoagulated on Coumadin; Healthcare maintenance 07/20/2024 Results Follow-Up [facility] [address] [place] [address] Ashley June R, FOOD SAFETY TECHNICIAN 07/20/2024 Travel 07/19/2024 Telephone [facility] Internal Medicine [address], 3rd [place] [address] Alisa Kunz, DO HCN Clinical Concern/Question 07/19/2024 Telephone [facility] Internal Medicine [address], [address]rd [place] [address] Alisa Kunz, 07/19/2024 Patient Outreach [facility] [address], [address] [place] [address] Zully Caldwell LPN TCM Call 07/19/2024 Travel 07/19/2024 Telephone [facility] Medicine Specialties [address], [address]nd [place] [address] Sarah Hernadez RN 07/16/2024 Telephone [facility] Internal Medicine [address], 3rd [place] [address] Alisa Kunz DO HCN Clinical Concern/Question 07/16/2024 Refill [facility] Medicine Specialties [address], [address]nd [place] [address] Austin Ortiz, PharmD 07/16/2024 Patient Outreach POP[facility] [address] [place], [address] [place] [address] Zully Caldwell LPN TCM Call 07/15/2024 Travel 07/14/2024 Patient Outreach [facility] [address], [address] [place] [address] Ekaterina Gómez 07/13/2024 Travel 07/12/2024 1:12 PM EDT - 07/15/2024 5:00 PM EDT Hospital Encounter [facility] [address] [place] [address] Yanet Arce MD Vincent, Evan L, MD Dweik, Anass G, MD Wimberly, Katherine E, MD Acute hypoxic respiratory failure (Primary Dx); Pleural effusion; LV (left ventricular) mural thrombus; Acute on chronic heart failure with preserved ejection fraction (CMS/HCC) Discharge Disposition: Home or Self Care 07/12/2024 9:51 AM EDT - 07/12/2024 1:11 PM EDT Hospital Encounter [facility] Radiology [address], 1st [place] [address] Recurrent pleural effusion on left Discharge Disposition: Home or Self Care 07/12/2024 Telephone [facility] Medicine Specialties [address], [address]nd [place] [address] Mendoza Charo E 07/12/2024 Travel 07/08/2024 2:02 PM EDT - 07/08/2024 11:59 PM EDT Hospital Encounter [facility] Radiology [address], 1st [place] [address] Recurrent pleural effusion on left Discharge Disposition: Home or Self Care 07/08/2024 1:00 PM EDT Office Visit [facility] Medicine Specialties [address], [address]nd [place] [address] Lavern Shoemaker MD Recurrent pleural effusion on left (Primary Dx); Chronic hypoxic respiratory failure; SLE (systemic lupus erythematosus related syndrome) ([facility]); Bronchiolitis; Obstructive lung disease ([facility]); Systemic lupus erythematosus (SLE) in adult ([facility]) 07/08/2024 Results Follow-Up [facility] Medicine Specialties [address], [address]nd [place] [address] Lavern Shoemaker MD 07/08/2024 Travel 07/08/2024 Telephone [facility] Internal Medicine [address], 3rd [place] [address] Alisa Kunz, 07/07/2024 12:00 PM EDT Office Visit [facility] Internal Medicine [address], 3rd [place] [address] Alisa Kunz, Acute hypoxic respiratory failure (Primary Dx); Pleural effusion 07/07/2024 Travel 07/02/2024 Travel 07/02/2024 Telephone [facility] Internal Medicine [address], 3rd [place] [address] Alisa Kunz, DO 07/01/2024 10:20 AM EDT Office Visit [facility] [address], [address] [place] [address] Nathan Shepard MD Burst fracture of T12 vertebra (CMS/HCC) (Primary Dx) 07/01/2024 Telephone [facility] Medicine Specialties [address], [address]nd [place] [address] Lavern Shoemaker MD 07/01/2024 Travel 06/29/2024 12:18 PM EDT - 06/29/2024 7:21 PM EDT Emergency [facility] Emergency Department [address] [place] [address] Nelsy Keller MD Shortness of breath (Primary Dx); Acute respiratory failure with hypoxia; Stage 3a chronic kidney disease (CMS/HCC) Discharge Disposition: Home or Self Care 06/29/2024 Orders Only [facility] [address] [place] [address] Nelsy Keller MD Stage 3a chronic kidney disease (CMS/HCC) (Primary Dx) 06/29/2024 Travel 06/28/2024 Travel 06/28/2024 Telephone [facility] Otolaryngology [address], [address] [place] [address] Andra Herman MD HCN Clinical Concern/Question 06/25/2024 11:03 AM EDT - 06/25/2024 11:59 PM EDT Hospital Encounter [facility] [address] [place] [address] Burst fracture of T12 vertebra (CMS/HCC) Discharge Disposition: Home or Self Care 06/25/2024 Travel 06/24/2024 Telephone [facility] Internal Medicine [address], [address] [place] [address] Alisa Kunz DO HCN Clinical Concern/Question 06/23/2024 Telephone [facility] Medicine Specialties [address], [address] [place] [address] Sadiq Osborne MBBS 06/23/2024 Telephone [facility] [address] [place] [address] Sadiq Osborne MBBS Hoarseness 06/22/2024 Travel 06/22/2024 Telephone [facility] [address], [address]nd [place] [address] Sarah Hernadez, RN 06/22/2024 Telephone [facility] Internal Medicine [address], 3rd [place] [address] Alisa Kunz, DO HCN Lab/home Health 06/18/2024 1:00 PM EDT - 06/18/2024 11:59 PM EDT Hospital Encounter Cardiac Imaging [address] [place] [address] Burst fracture of T12 vertebra (CMS/HCC) Discharge Disposition: Home or Self Care 06/18/2024 Travel 06/18/2024 Telephone [facility] [address] [place] [address] Virgen Rivero RN 06/17/2024 Telephone [facility] [address] [facility] [address] [facility], [address] [place] [address] Nathan Shepard MD 06/17/2024 Telephone [facility] [address] [facility], [address] [place] [address] Robert Blair 06/16/2024 2:38 PM EDT - 06/16/2024 11:59 PM EDT Hospital Encounter [facility] [address] [place] [address] Burst fracture of T12 vertebra (CMS/HCC); Cervical pain (neck) Discharge Disposition: Home or Self Care 06/16/2024 2:30 PM EDT Office Visit [facility] [address] [place] [address] Obi Villegas, PA Cervical pain (neck) (Primary Dx); Burst fracture of T12 vertebra (CMS/HCC) 06/16/2024 Travel 06/15/2024 Telephone [facility] Internal Medicine [address], 3rd [place] [address] Alisa Kunz, DO HCN - Patient Message 06/15/2024 Telephone [facility] Internal Medicine [address], 3rd [place] [address] Alisa Kunz DO Med Refill 06/15/2024 Orders Only [facility] [address] [facility] [address] [facility], [address] [place] [address] Obi Villegas PA Burst fracture of T12 vertebra (CMS/HCC) (Primary Dx) 06/11/2024 Telephone [facility] [address], [address] [place] [address] Nathan Shepard MD HCN - Patient Message 06/10/2024 1:00 PM EDT Office Visit [facility] Pulmonary Rehab [address] [place] [address] Nathan Temple Obstructive lung disease (CMS/HCC) (Primary Dx); SLE (systemic lupus erythematosus related syndrome) (CMS/HCC); Bronchiolitis; Chronic hypoxic respiratory failure; Physical deconditioning 06/10/2024 Telephone [facility] Internal Medicine [address], [address] [place] [address] Alisa Kunz DO HCN Clinical Concern/Question 06/10/2024 Plan of Care Documentation [facility]hab [address] [place] [address] 06/10/2024 Travel 06/08/2024 1:05 PM EDT Office Visit [facility] Internal Medicine [address], 3rd [place] [address] Alisa Kunz DO 06/08/2024 Travel 06/04/2024 Orders Only [facility] Medicine Specialties [address], [address]nd [place] [address] Yoandy Larsen MD Bronchiolitis (Primary Dx); SLE (systemic lupus erythematosus related syndrome) (CMS/HCC); Chronic hypoxic respiratory failure (CMS/HCC); Physical deconditioning; Obstructive lung disease (CMS/HCC) 06/03/2024 Telephone [facility] Internal Medicine [address], [address]rd [place] [address] Alisa Kunz DO HCN Clinical Concern/Question 06/02/2024 Orders Only [facility] Medicine Specialties [address], [address]nd [place] [address] Lavern Shoemaker MD Heart failure with preserved ejection fraction, unspecified HF chronicity (CMS/HCC) (Primary Dx) 06/01/2024 1:00 PM EDT Office Visit [facility] Internal Medicine [address], [address]rd [place] [address] Alisa Kunz, Acute hypoxic respiratory failure ([facility]/HCC) (Primary Dx); Pneumonia of right lung due to infectious organism, unspecified part of lung; Pleural effusion; Decreased mobility; Physical deconditioning 06/01/2024 Travel 05/31/2024 Telephone [facility] Medicine Specialties [address], [address] [place] [address] Charo Donaldson 05/31/2024 Patient Outreach [facility] [address], [address] [place] [address] Sarah Reyes LPN TCM Call from Last 3 Months Immunizations Immunization Administration Dates Next Due Hep A, Adult 01/24/2019, 9,01/24/2019,01/23,01/23/2019,06/11/2018,06/11/2018 ,06/11/2018 Influenza, High-dose, Split Virus, Trivalent, Injectable, preservative free 11/27/2023,01/18/2019,12/19/2017 Influenza, Unspecified 12/09/2019 Influenza, high-dose, quadrivalent 01/09,01/28/2022,12/05/2020,12/05,12/05/2020,01/18/2019,01/18/2019 ,01/18/2019,01/18/2019,12/19/2017,12/08,12/19/2017 Influenza, seasonal, injectable 12/08/2018 Pfizer-BioNTMilk A Deal COVID-19 Vac cine (Purple Cap) 12+ 04/22/2020,04/22/2020,03/30/2020,03/30 Pneumococcal Conjugate PCV 13 08/06/2019 ,08/06/2019,08/06/2019,07/02,07/02/2016,07/02/2016 Pneumococcal Polysaccharide PPV23 2019,06/11/2018,06/11/2018,06/11 Zoster, Recombinant 01/24/2019, 9,01/24/2019,01/23,01/23/2019,06/11/2018,06/11/2018 ,06/11/2018 Family History Medical History Relation Name Comments Alcohol abuse Father Doron Henriquezer Arthritis Father Doron Henriquezer COPD Father Doron Henriquezer Hypercholesterolemia Father Doron Henriquezer Obesity Father Doron Henriquezer Alpha-1 antitrypsin deficiency Mother m ildred stamper alfredito kelin COPD Mother gracy stamper alfredito kelin Conversions - Other Mother gracy stam per alfredito kelin Goiter (Diffuse Nontoxic) Heart disease Mother gracy stamper alfredito kelin Hypertension Mother gracy stamper alfredito kelin Stroke Mother gracy stamper alfredito kelin Cancer Other 1 Doron E Alfredito Conversions - Other Other 2 Goiter ( Diffuse Nontoxic) Heart disease Other 3 Gracy Marry Stamper [place] Kelin Diabetes Sibling Relation Name Status Comments Father Doron Sofiya Alfredito Mother gracy stamper alfredito kelin Other 1 Doron E Alfredito Other 2 Other 3 Gracy Marry Stamper [place] Kelin Sibling Social History Tobacco Use Types Packs/Day Years [...] week 08/30/2022 How often do you attend up health system or cheondoism services? 1 to 4 times per year 08/30/2022 Do you belong to any clubs o r organizations such as confucianism groups, unions, fraternal or athletic groups, or [...] Recorded Patient Health Questionnaire-2 Score 0 08/04/2024 [facility] [place] [facility] Occupat ional Health - Occupational Stress [...] place to sleep or slept in a mcc (including now)? No 12/30/2023 PHQ-9 Answer Date [...] were you homeless or living in a mcc (including now)? No 05/27/2024 Humiliation, Afraid, Rape, [...] were you homeless or living in a mcc (including now)? 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) to steady your nerves or to [...] Orientation Straight 11/01/2020 9: 33 PM EDT Last Filed Vital Signs Vital Sign Reading [...] Mass Index 22.59 08/16/2024 7:12 AM EDT Plan of Treatment Upcoming Encounters Date Type Department Care Team (Late st Contact Info) Description 09/08/2024 11:20 AM EDT Office Visit [facility] Internal Medicine [address], [address]rd [place] [address] Alisa Kunz, DO [address] [place] [phone] 10/07/2024 4:00 PM EDT Appointment Cardiac Imaging [address] [place] [address] 10/14/2024 4:00 PM EDT Office Visit [facility] Medicine Specialties [address], 2nd [place] [address] Lavern Shoemaker MD [address] [place], [place] [address] 10/27/2024 1:40 PM EDT Office Visit [facility] Endocrinology [address] [place] [address] Anne-Marie Kolb L, FOOD SAFETY TECHNICIAN [address] [facility] [address] [place] [address] 11/29/2024 10:20 AM EDT Office Visit [facility] Internal Medicine [address], [address]rd [place] [address] Alisa Kunz, DO [address] [facility] [address] [place] [address] 02/02/2025 10:30 AM EST Office Visit [facility] Medicine Specialties [address], [address] [place] [address] Sadiq Osborne, SHANA [address] [place] [address] Health Maintenance Due Date Last Done Comments [facility]-Infant/Child/Adol SDOH Screenings 1950 Diabetes: Dental Exam 1961 [facility]-DTaP,Tdap,and Td Vaccines (1 - Tdap) 1970 CT Colonography 02/09/1996 Colonoscopy 02/09/1996 FIT-DNA 02/09/1996 FIT 02/09/1996 FOBT 02/09/1996 Sigmoidoscopy 02/09/1996 [facility]-RSV Vaccine: 60+ Years or (1 - Risk 60-74 years 1-dose series) 2011 [id number] Vaccine ( season) 2023 04/22/2020, 04/22/2020, 03/30/2020, Additional history exists [facility]-Breast Cancer Screening 11/10/202304/2021, 11/09/2021, 01/25/2020, Additional history exists [facility]-Medicare Annual Wellness (AWV) 01/10/2024 01/09/2023, 04/03/2021, 09/06/2020 [facility]-Diabetes: Hemoglobin A1C 11/13/2024 08/14/2024, 05/24/2024, 04/26/2024, Additional history exists [facility]-Bone Density Scan 01/10/2025 01/10/2023 , 01/10/2023, 11/08/2020 [facility]- SDOH Screenings 02/14/2025 [facility]-Adult SDOH Screenings 02/14/2025 08/15/2024 [facility]-Depression Screening 08/04/2025 025, 07/21/2024, 09/18/2022 [facility]-Colorectal Cancer Screening 10/17/2025 Postponed from 02/09/1996 (Other Medical Reasons) [facility]-Hepatitis A Vaccines Aged Out 019, 01/24/2019, 01/24/2019, Additional history exists No longer eligible based on patient's age to complete this topic [facility]-Zoster Vaccines Completed 01/24/2019, 01/24/2019, 01/24/2019, Additional history exists [facility]-Pneumococcal Vaccine: 50+ Years Completed 12/09/2019, 08/06/2019, 08/06/2019, Additional history exists [facility]-Influenza Vaccine Completed 11/27/2023 , 01/09/2023, 01/28/2022, Additional history exists [facility]-Hepatitis C Screening Completed 2023, 09/18/2022, 08/25/2022, Additional history exists HPV Vaccines Aged Out No longer eligi ble based on patient's age to complete this topic [facility]-HIB Vaccines Aged Out No longer e ligible based on patient's age to complete this topic [facility]-IPV Vaccines Aged Out No longer e ligible based on patient's age to complete this topic [facility]-Rotavirus Vaccines Aged Out No lo nger eligible based on patient's age to complete this topic Procedures Procedure Name Priority Date/Time Associated Diagnosis Comments POCT GLUCOSE METER UNSOLICITED RESULTS Routine 08/24/2024 11:36 AM EDT POCT GLUCOSE METER UNSOLICITED RESULTS Routine 08/24/2024 7:37 AM EDT BASIC METABOLIC PANEL, PLASMA Routine 08/24/2024 3:43 AM EDT PROTHROMBIN TIME(PT) / INR Routine 08/24/2024 3:43 AM EDT POCT GLUCOSE METER UNSOLICITED RESULTS Routine 08/23/2024 7:09 PM EDT POCT GLUCOSE METER UNSOLICITED RESULTS Routine 08/23/2024 3:58 PM EDT XR CHEST 1 VIEW STAT 08/23/2024 2:20 PM EDT POCT GLUCOSE METER UNSOLICITED RESULTS Routine 08/23/2024 11:41 AM EDT OXYGEN THERAPY Routine 08/23/2024 8:00 AM EDT POCT GLUCOSE METER UNSOLICITED RESULTS Routine 08/23/2024 7:37 AM EDT BASIC METABOLIC PANEL, PLASMA Routine 08/23/2024 3:19 AM EDT PROTHROMBIN TIME(PT) / INR Routine 08/23/2024 3:19 AM EDT POCT GLUCOSE [...] PM EDT EXTRA TUBE LAVENDER TOP Routine 08/21/2024 5:23 PM EDT EXTRA TUBES Routine 08/21/2024 [...] 1 VIEW Routine 08/21/2024 7:01 AM EDT BASIC METABOLIC PANEL, PLASMA Routine 08/21/2024 4:04 AM EDT PROTHROMBIN TIME(PT) / INR Routine 08/21/2024 4:04 AM EDT POCT GLUCOSE [...] UNSOLICITED RESULTS Routine 08/20/2024 3:23 AM EDT MAGNESIUM, PLASMA Routine 08/20/2024 1:5 7 AM EDT BASIC METABOLIC PANEL, PLASMA Routine 08/20/2024 1:57 AM EDT PROTHROMBIN TIME(PT) / INR Routine 08/20/2024 1:57 AM EDT OXYGEN THERAPY [...] 1 VIEW Routine 08/19/2024 7:54 AM EDT MAGNESIUM, PLASMA Routine 08/19/2024 5:0 0 AM EDT BASIC METABOLIC PANEL, PLASMA Routine 08/19/2024 5:00 AM EDT PROTHROMBIN TIME(PT) / INR Routine 08/19/2024 5:00 AM EDT POCT GLUCOSE [...] UNSOLICITED RESULTS Routine 08/18/2024 1:52 AM EDT MAGNESIUM, PLASMA Routine 08/18/2024 1:1 8 AM EDT BASIC METABOLIC PANEL, PLASMA Routine 08/18/2024 1:18 AM EDT PROTHROMBIN TIME(PT) / INR Routine 08/18/2024 1:18 AM EDT POCT GLUCOSE [...] VIEW STAT 08/17/2024 11:26 AM EDT BODY FLUID, CYTOSPIN, PATHOLOGIST INTERPRETATION Routine 08/17/2024 10:58 AM EDT BODY FLUID CELL COUNT W/ MANUAL DIFFERENTIAL Routine 08/17/2024 10:58 AM EDT NON-GYNECOLOGIC CYTOLOGY Routine 08/17/2024 10:57 AM EDT CHYLOMICRON ELECTROPHORESIS (REFLEX ONLY) Routine 08/17/2024 10:57 AM EDT AMYLASE, PLEURAL FLUID Routine 10:57 AM EDT CHOLESTEROL FLUID (SO) Routine 10:57 AM EDT ADENOSINE DEAMINASE, PLEURAL FLUID (SO) Routine 08/17/2024 10:57 AM EDT PH, PLEURAL FLUID Routine 08/17/2024 10: 57 AM EDT TRIGLYCERIDES BF WITH RFLX TO CHYLO (SO) Routine 08/17/2024 10:57 AM EDT GLUCOSE, PLEURAL FLUID Routine 10:57 AM EDT ALBUMIN, PLEURAL FLUID Routine 10:57 AM EDT LACTATE DEHYDROGENASE, PLEURAL FLUID Routine 08/17/2024 10:57 AM EDT TOTAL PROTEIN, PLEURAL FLUID Routine 08/17/2024 10:57 AM EDT AFB CULTURE, NON RESPIRATORY SOURCE AND ACID FAST STAIN Routine 08/17/2024 10:57 AM EDT BODY FLUID CULTURE AND GRAM STAIN Routine 08/17/2024 10:57 AM EDT OXYGEN THERAPY Routine 08/17/2024 8:00 AM EDT POCT GLUCOSE METER UNSOLICITED RESULTS Routine 08/17/2024 7:39 AM EDT CBC W/O DIFFERENTIAL Routine 08/17/2024 4:28 AM EDT MAGNESIUM, PLASMA Routine 08/17/2024 4:2 8 AM EDT COMPREHENSIVE METABOLIC PANEL, PLASMA Routine 08/17/2024 4:28 AM EDT LACTATE DEHYDROGENASE, PLASMA Routine 08/17/2024 4:28 AM EDT PROTHROMBIN TIME(PT) / INR Routine 08/17/2024 4:28 AM EDT POCT GLUCOSE METER UNSOLICITED RESULTS Routine 08/16/2024 8:03 PM EDT OXYGEN THERAPY Routine 08/16/2024 8:00 PM EDT POCT GLUCOSE METER UNSOLICITED RESULTS Routine 08/16/2024 4:12 PM EDT POCT GLUCOSE METER UNSOLICITED RESULTS Routine 08/16/2024 11:03 AM EDT OXYGEN THERAPY Routine 08/16/2024 8:00 AM EDT POCT GLUCOSE METER UNSOLICITED RESULTS Routine 08/16/2024 7:44 AM EDT CBC W/O DIFFERENTIAL Routine 08/16/2024 1:46 AM EDT MAGNESIUM, PLASMA Routine 08/16/2024 1:4 6 AM EDT BASIC METABOLIC PANEL, PLASMA Routine 08/16/2024 1:46 AM EDT PROTHROMBIN TIME(PT) / INR Routine 08/16/2024 1:46 AM EDT POCT GLUCOSE [...] PANEL, ARTERIAL Routine 08/15/2024 5:01 AM EDT VITAMIN D 25 HYDROXY Routine 08/15/2024 4:52 AM EDT PROTHROMBIN TIME(PT) / INR Routine 08/15/2024 4:52 AM EDT N-TERMINAL PROBNP, PLASMA Routine 08/15/2024 4:52 AM EDT PHOSPHORUS, PLASMA Routine 08/15/2024 4: 52 AM EDT MAGNESIUM, PLASMA Routine 08/15/2024 4:5 2 AM EDT BASIC METABOLIC PANEL, PLASMA Routine 08/15/2024 4:52 AM EDT CBC W/O DIFFERENTIAL Routine 08/15/2024 4:52 AM EDT POCT GLUCOSE METER UNSOLICITED RESULTS Routine 08/14/2024 8:54 PM EDT POCT GLUCOSE METER UNSOLICITED RESULTS Routine 08/14/2024 6:43 PM EDT PROTHROMBIN TIME(PT) / INR STAT 08/14/2024 6:08 PM EDT HEMOGLOBIN A1C Routine 08/14/2024 6:08 PM EDT XR CHEST 1 VIEW STAT 08/14/2024 3:52 PM EDT N-TERMINAL PROBNP, PLASMA STAT 08/14/2024 2:55 PM EDT CBC WITH AUTO DIFFERENTIAL STAT 08/14/2024 2:55 PM EDT TROPONIN T, HIGH SENSITIVITY, 0 HOUR, PLASMA, REFLEX TO 2 HOUR STAT 08/14/2024 2:55 PM EDT MAGNESIUM, PLASMA STAT 08/14/2024 2:5 5 PM EDT COMPREHENSIVE METABOLIC PANEL, PLASMA STAT 08/14/2024 2:55 PM EDT ECG ADULT STAT 08/14/2024 2:31 PM EDT XR CHEST 2 VIEWS Routine 07/21/2024 11:5 3 AM EDT Bilateral pleural effusion DOUBLE-STRANDED DNA (DSDNA) ANTIBODY, IGG BY IFA (SO) Routine 07/21/2024 11:18 AM EDT Systemic lupus erythematosus (SLE) in adult ([facility] CBC WITH AUTO DIFFERENTIAL Routine 07/21/2024 11:18 AM EDT Systemic lupus erythematosus (SLE) in adult ([facility]) COMPREHENSIVE METABOLIC PANEL, PLASMA Routine 07/21/2024 11:18 AM EDT Systemic lupus erythematosus (SLE) in adult ([facility]) SEDIMENTATION RATE, AUTOMATED Routine 07/21/2024 11:18 AM EDT Systemic lupus erythematosus (SLE) in adult ([facility] C-REACTIVE PROTEIN, PLASMA Routine 07/21/2024 11:18 AM EDT Systemic lupus erythematosus (SLE) in adult ([facility]) C3 COMPLEMENT Routine 07/21/2024 11:04 AM EDT Systemic lupus erythematosus (SLE) in adult ([facility]) C4 COMPLEMENT Routine 07/21/2024 11:04 AM EDT Systemic lupus erythematosus (SLE) in adult ([facility]) CBC W/O DIFFERENTIAL Routine 07/20/2024 11:28 AM EDT Acute on chronic hypoxic respiratory failure COMPREHENSIVE METABOLIC PANEL, PLASMA Routine 07/20/2024 11:28 AM EDT Acute on chronic hypoxic respiratory failure PROTHROMBIN TIME(PT) / INR Routine 07/20/2024 11:28 AM EDT Acute on chronic hypoxic respiratory failure ECHO, ADULT TRANSTHORACIC COMPLETE W/ CONTRAST Routine [...] Routine 07/15/2024 9:43 AM EDT Pleural effusion MS THORACENTESIS NEEDLE/CATH PLEURA W/IMAGING Routine 07/15/2024 9:43 AM EDT Pleural effusion BODY FLUID, CYTOSPIN, PATHOLOGIST INTERPRETATION Routine 07/15/2024 9:34 AM EDT BODY FLUID CELL COUNT W/ MANUAL DIFFERENTIAL Routine 07/15/2024 9:34 AM EDT NON-GYNECOLOGIC CYTOLOGY Routine 07/15/2024 9:31 AM EDT GLUCOSE, PLEURAL FLUID Routine 9:31 AM EDT LACTATE DEHYDROGENASE, PLEURAL FLUID Routine 07/15/2024 9:31 AM EDT TOTAL PROTEIN, PLEURAL FLUID Routine 07/15/2024 9:31 AM EDT FUNGAL CULTURE, STERILE BODY FLUID (NOT CSF) AND JAS Routine 07/15/2024 9:31 AM EDT BODY FLUID CULTURE AND GRAM STAIN Routine 07/15/2024 9:31 AM EDT POCT GLUCOSE METER UNSOLICITED RESULTS Routine 07/15/2024 7:30 AM EDT POCT GLUCOSE METER UNSOLICITED RESULTS Routine 07/15/2024 4:19 AM EDT PROTHROMBIN TIME(PT) / INR Routine 07/15/2024 3:30 AM EDT BASIC METABOLIC PANEL, PLASMA Routine 07/15/2024 3:30 AM EDT CBC WITH AUTO DIFFERENTIAL Routine 07/15/2024 3:30 AM EDT POCT GLUCOSE [...] PROBNP, PLASMA Routine 07/13/2024 3:09 AM EDT COMPREHENSIVE METABOLIC PANEL, PLASMA Routine 07/13/2024 3:09 AM EDT CBC WITH AUTO DIFFERENTIAL Routine 07/13/2024 3:09 AM EDT PROTHROMBIN TIME(PT) / INR Routine 07/13/2024 3:09 AM EDT POCT GLUCOSE METER UNSOLICITED RESULTS Routine 07/13/2024 1:02 AM EDT POCT GLUCOSE METER UNSOLICITED RESULTS Routine 07/12/2024 10:14 PM EDT POCT GLUCOSE METER UNSOLICITED RESULTS Routine 07/12/2024 8:30 PM EDT OXYGEN THERAPY Routine 07/12/2024 8:00 PM EDT URINALYSIS MICROSCOPIC FOR UA REFLEX Routine 07/12/2024 7:27 PM EDT URINALYSIS WITH REFLEX MICROSCOPIC Routine 07/12/2024 7:27 PM EDT HERNADEZ (ASHLEY) ANTIBODY, IGG (SO) Routine 07/12/2024 4:46 PM EDT COMPLEMENT ACTIVITY TOTAL, (CH50) (SO) Routine 07/12/2024 4:46 PM EDT C4 COMPLEMENT Routine 07/12/2024 4:46 PM EDT C3 COMPLEMENT Routine 07/12/2024 4:46 PM EDT OXYGEN THERAPY Routine 07/12/2024 4:12 PM EDT OXYGEN THERAPY Routine 07/12/2024 4:12 PM EDT OXYGEN THERAPY Routine 07/12/2024 4:12 PM EDT DOUBLE-STRANDED DNA (DSDNA) ANTIBODY, IGG BY IFA (SO) STAT 07/12/2024 3:24 PM EDT PROTHROMBIN TIME(PT) / INR STAT 07/12/2024 3:24 PM EDT TROPONIN T, HIGH SENSITIVITY, 2 HOUR, PLASMA Timed 07/12/2024 3:24 PM EDT C-REACTIVE PROTEIN, PLASMA STAT Add-on 07/12/2024 1:11 PM EDT LACTATE DEHYDROGENASE, PLASMA STAT Add-on 07/12/2024 1:11 PM EDT N-TERMINAL PROBNP, PLASMA STAT 07/12/2024 1:11 PM EDT TROPONIN T, HIGH SENSITIVITY, 0 HOUR, PLASMA, REFLEX TO 2 HOUR STAT 07/12/2024 1:11 PM EDT CBC WITH AUTO DIFFERENTIAL STAT 07/12/2024 1:11 PM EDT BASIC METABOLIC PANEL, PLASMA STAT 07/12/2024 1:11 PM EDT ECG ADULT STAT 07/12/2024 12:30 PM EDT XR CHEST 2 VIEWS Routine 07/12/2024 10:1 1 AM EDT Recurrent pleural effusion on left XR CHEST 2 VIEWS Routine 07/08/2024 2:11 PM EDT Recurrent pleural effusion on left XR CHEST 1 VIEW STAT 06/29/2024 7:03 PM EDT TOTAL PROTEIN, PLEURAL FLUID Routine 06/29/2024 6:21 PM EDT Stage 3a chronic kidney disease (CMS/HCC) BODY FLUID, CYTOSPIN, PATHOLOGIST INTERPRETATION STAT 06/29/2024 6:21 PM EDT LACTATE DEHYDROGENASE TOTAL, BODY FLUID (SO) STAT 06/29/2024 6:21 PM EDT BODY FLUID CELL COUNT W/ MANUAL DIFFERENTIAL STAT 06/29/2024 6:21 PM EDT BODY FLUID CULTURE AND GRAM STAIN STAT 06/29/2024 6:21 PM EDT TROPONIN T, HIGH SENSITIVITY, 2 HOUR, PLASMA Timed 06/29/2024 4:[address] ANGIO PULMONARY EMBOLISM STAT 06/29/2024 3:11 PM EDT PROTHROMBIN TIME(PT) / INR STAT 06/29/2024 1:42 PM EDT BLOOD GAS PANEL, VENOUS STAT 06/29/2024 1:42 PM EDT N-TERMINAL PROBNP, PLASMA STAT 06/29/2024 1:42 PM EDT TROPONIN T, HIGH SENSITIVITY, 0 HOUR, PLASMA, REFLEX TO 2 HOUR STAT 06/29/2024 1:42 PM EDT MAGNESIUM, PLASMA STAT 06/29/2024 1:4 2 PM EDT COMPREHENSIVE METABOLIC PANEL, PLASMA STAT 06/29/2024 1:42 PM EDT CBC WITH AUTO DIFFERENTIAL STAT 06/29/2024 1:42 PM EDT NASOPHARYNGEAL RESPIRATORY PANEL STAT 06/29/2024 1:14 PM EDT SARS COV2 COVID 19/INFLUENZA A, B STAT 06/29/2024 1:14 PM EDT ECG ADULT STAT 06/29/2024 12:52 PM EDT HC THORACENTESIS NEEDLE/CATH PLEURA W/IMAGING Routine 06/29/2024 11:59 AM EDT MS THORACENTESIS NEEDLE/CATH PLEURA W/IMAGING Routine 06/29/2024 11:59 AM EDT MR THORACIC SPINE WO IV CONTRAST STAT 06/25/2024 12:27 PM EDT Burst fracture of T12 vertebra (CMS/HCC) MS ARA-PX DEV EVAL PM/LDLS PM PHYS/QHP IN PERSON STAT 06/18/2024 1:29 PM EDT Burst fracture of T12 vertebra (CMS/HCC) XR CERVICAL SPINE 2 OR 3 VIEWS Routine 06/16/2024 2:49 PM EDT Cervical pain (neck) XR THORACIC SPINE 2 VIEWS Routine 06/16/2024 2:49 PM EDT Burst fracture of T12 vertebra (CMS/HCC) HEPATITIS C ANTIBODY - ED W/REFLEX TO HCV QUANT PCR STAT 01/29/2024 3:32 PM EST DEXA BONE DENSITY Routine 01/10/2023 10: 23 AM EDT Osteopenia, unspecified location MAMMOGRAPHY BREAST SCREENING TOMOSYNTHESIS BILATERAL Routine 11/09/2021 4:12 PM EDT Healthcare maintenance from Last 3 Months or Most Recently Relevant to Health Maintenance Results * (ABNORMAL) POCT glucose meter (08/24/2024 11:36 AM EDT) Only the most recent of79 resultswithin the time period is included. POCT Glucose 263(H) 74 - 99 mg/dL 08/24/2024 11:44 AM EDT [facility] Comment:Accuracy of a glucos e result [...] 08/24/2024 11:44 AM EDT [facility] Commissioned Security Officer ID Partha Zhu 08/25/19 11:44 AM EDT [facility]ALTH[facility]ARE [facility] Device ID [id number] 08/24/2024 11:44 AM EDT [facility] Specimen Type POC Capillary 08/24/2024 11:44 AM EDT [facility] Blood Capillary blood specimen / Unknown 08/24/2024 11:36 AM EDT 08/24/2024 11:44 AM EDT us Doron Thayer MD LAB POINT OF CARE TE ST DOCKED DEVICE UNSOLICITED RESULTS Final Result Performing Organization Address City/[facility]/ZIP Co de Phone Number [facility] [address] [place] [address] * (ABNORMAL) Prothrombin Time/INR (08/24/2024 3:43 AM EDT) Only the most recent of18 resultswithin the time period is included. Prothrombin Time 16.6(H) 12.0 - 14.3 sec LAB COAGULATION METHOD 08/24/2024 4:04 AM EDT [facility] INR 1.3(H) 0.9 - 1.1 LAB COAGULATION METHOD 08/24/2024 4:04 AM EDT [facility] Blood Venous blood specimen / Unknown Venipuncture / Unknown 08/24/2024 3:43 AM EDT 08/24/2024 3:48 AM EDT Narrative [facility] - 08/24/2024 4:04 AM EDT OPTIMAL INR RANGES FOR PATIENT ON ORAL ANTICOAGULANT THERAPY Prevention of venous thromboembolism INR 2.0 to 3.0 In patients with heart disease: Atrial fibrillation INR 2.0 to 3.0 Valvular heart disease INR 2.0 to 3.0 Tissue heart valves INR 2.0 to 3.0 Mechanical prosthetic valves INR 2.5 to 3.5 Prevention of recurrent [place] INR 2.5 to 3.5 us Kenneth James MD LAB BLOOD ORDERABLES Final Res ult [facility] [address] [place] [address] * (ABNORMAL) Basic metabolic panel (08/24/2024 3:43 AM EDT) Only the most recent of14 resultswithin the time period is included. Glucose, Plasma 327(H) 74 - 99 mg/dL 08/24/2024 4:22 AM EDT [facility] BUN, Plasma 33(H) 8 - 23 mg/dL 08/24/2024 4:22 AM EDT [facility] Creatinine, Plasma 1.02 0.60 - 1.10 mg/dL 08/24/2024 4:22 AM EDT [facility] BUN/Creatinine Ratio 32 08/24/2024 4:22 AM EDT [facility] Sodium, Plasma 128(L) 136 - 145 mmol/L 08/24/2024 4:22 AM EDT [facility] Potassium, Plasma 4.1 3.6 - 4.9 mmol/L 08/24/2024 4:22 AM EDT [facility] Chloride, Plasma 90(L) 97 - 107 mmol/L 08/24/2024 4:22 AM EDT [facility] CO2, Plasma 27 22 - 29 mmol/L 08/24/2024 4:22 AM EDT [facility] Anion Gap 11 6 - 16 mmol/L 08/24/2024 4:22 AM EDT [facility] Total Calcium, Plasma 8.6(L) 8.9 - 10.2 mg/dL 08/24/2024 4:22 AM EDT [facility] eGFRcr 58.2 mL/min/1.7 3m*2 08/24/2024 4:22 AM EDT [facility] Comment:Reported eGFRcr in m L/min/1.73m2 is based the CKD-EPI 2020 equation that does not use a race coefficient. Blood Venous blood specimen / Unknown Venipuncture / Unknown 08/24/2024 3:43 AM EDT 08/24/2024 3:49 AM EDT us Kenneth James MD LAB BLOOD ORDERABLES Final Res ult [facility] [address] [place] [address] * XR Chest 1 View (08/23/2024 2:20 PM EDT) Only the most recent of11 resultswithin the time period is included. Anatomical Region Laterality Modality Chest Digital Radiogra [...] MD on 08/23/2024 2:22 PM Boby Rouse FOOD SAFETY TECHNICIAN IMG XR PROCEDURES Final Res ult * Lavender Top (08/21/2024 5:23 PM EDT) Only the most recent of2 resultswithin the time period is included. Extra Hold for add-ons 08/21/2024 9:02 PM EDT [facility] Comment:Auto resulted. Blood Venous blood specimen / Unknown 08/21/2024 5:23 PM EDT 08/21/2024 6:26 PM EDT Kenneth James MD LAB BLOOD ORDERABLES Final Res ult Performing Organization Address City/[facility]/ZIP Co de Phone Number [facility] [address] [place] [address] * (ABNORMAL) Magnesium (08/20/2024 1:57 AM EDT) Only the most recent of9 resultswithin the time period is included. Magnesium, Plasma 1.8(L) 1.9 - 2.4 mg/dL 08/20/2024 3:18 AM EDT [facility] Blood Venous blood specimen / Unknown Venipuncture / Unknown 08/20/2024 1:57 AM EDT 08/20/2024 2:02 AM EDT Kenneth James MD LAB BLOOD ORDERABLES Final Res ult Performing Organization Address City/[facility]/ZIP Co de Phone Number [facility] [address] [place] [address] * RIGHT HEART CATHETERIZATION (08/18/2024 4:04 PM EDT) Anatomical Region Laterality Modality Other Narrative 08/19/2024 2:25 PM EDT Conclusion: 1. Mildly elevated right and left-sided filling pressures. 2. Mildly elevated PA pressure (PA mean 30mmHg) with mild pre and post-capillary pulmonary hypertension (PVR 2.91 if using Josafat cardiac output, 4.36 if using thermodilution cardiac output. The truth likely lies somewhere in the middle.) 3. Normal cardiac index by Josafat, reduced cardiac index by thermodilution. Recommendations: 1. [...] then carried out using a 7.5F VIP [place] catheter. Pressures were recorded as the catheter [...] the patient was transferred back to the manager labor delivery holding area in good condition. Study Details [...] Mixed Venous (08/18/2024 3:52 PM EDT) [facility] POCT Oxyhemoglobin, Mixed Venous 60.8 % 08/18/2024 3:53 PM EDT [facility] Commissioned Security Officer ID Vittitow, Ngozi 08/18/2024 3:53 PM EDT [facility] Device ID [id number] 08/18/2024 3:53 PM EDT [facility] POCT Sample Site PA 08/18/2024 3:53 PM EDT [facility] POCT Total Hemoglobin 9.7(L) 11.2 - 15.7 g/dL 08/18/2024 3:53 PM EDT [facility] 08/18/2024 3:52 PM EDT 08/18/2024 3:53 PM EDT Kenneth James MD LAB POINT OF CARE TE ST DOCKED DEVICE UNSOLICITED RESULTS Final Result [facility] [address] [place] [address] * (ABNORMAL) POCT CO-Oximitry, Venous (08/18/2024 3:50 PM EDT) Pathologist [facility] POCT OXYHEMOGLOBIN, VENOUS 65 40 - 70 % 08/18/2024 3:50 PM EDT [facility] Commissioned Security Officer ID Vijay, Ngozi 08/18/2024 3:50 PM EDT [facility] Device ID [id number] 08/18/2024 3:50 PM EDT [facility] POCT Sample Site -[facility]- 08/18/2024 3:50 PM EDT [facility] POCT Total Hemoglobin 9.7(L) 11.2 - 15.7 g/dL 08/18/2024 3:50 PM EDT [facility] Venous blood specimen / Unknown 08/18/2024 3:50 PM EDT 08/18/2024 3:50 PM EDT us Kenneth James MD LAB POINT OF CARE TE ST DOCKED DEVICE UNSOLICITED RESULTS Final Result Performing Organization Address City/[facility] Co de Phone Number [facility] [address] [place] [address] * (ABNORMAL) Body Fluid Cell Count w/ Diff - Pleural Right (08/17/2024 10:58 AM EDT) Only the most recent of3 resultswithin the time period is included. Pathologist [facility] Color, Body fluid [place] LAB HEMATOLOGY METHOD 08/17/2024 6:09 PM EDT [facility] Appearance, Body fluid Cloudy(A) LAB HEMATOLOGY METHOD 08/17/2024 6:09 PM EDT [facility] Volume, Body fluid 90.0 cc LAB HEMATOLOGY METHOD 08/17/2024 6:09 PM EDT [facility] Fluid Container Specimen received in miscellaneous container LAB HEMATOLOGY METHOD 08/17/2024 6:09 PM EDT [facility] Red Blood Cell Count, Body fluid 5,000 uL LAB HEMATOLOGY METHOD 08/17/2024 6:09 PM EDT [facility] Total Nucleated Cell Count, Body fluid 370 uL LAB HEMATOLOGY METHOD 08/17/2024 6:09 PM EDT [facility] Neutrophils %, Body fluid 17 % LAB HEMATOLOGY METHOD 08/17/2024 6:09 PM EDT [facility] Lymphocytes %, Body fluid 37 % LAB HEMATOLOGY METHOD 08/17/2024 6:09 PM EDT [facility] Monocytes/Macr ophages %, Body fluid 44 % LAB HEMATOLOGY METHOD 08/17/2024 6:09 PM EDT [facility] Eosinophils %, Body fluid 0 % LAB HEMATOLOGY METHOD 08/17/2024 6:09 PM EDT [facility] Lining/[place]es[place] lial Cells %, Body fluid 2 % LAB HEMATOLOGY METHOD 08/17/2024 6:09 PM EDT [facility] Neutrophils Absolute (PMN), Body fluid 63 uL LAB HEMATOLOGY METHOD 08/17/2024 6:09 PM EDT [facility] Lymphocytes Absolute, Body fluid 137 uL LAB HEMATOLOGY METHOD 08/17/2024 6:09 PM EDT [facility] Monocytes/Macr ophages Absolute, Body fluid 163 uL LAB HEMATOLOGY METHOD 08/17/2024 6:09 PM EDT [facility] Eosinophils Absolute, Body fluid 0 uL LAB HEMATOLOGY METHOD 08/17/2024 6:09 PM EDT [facility] Basophils Absolute, Body fluid 0 uL LAB HEMATOLOGY METHOD 08/17/2024 6:09 PM EDT [facility] Lining/Mesothe lial Cells Absolute, Body fluid 7 uL LAB HEMATOLOGY METHOD 08/17/2024 6:09 PM EDT [facility] Basophils %, Body fluid 0 % LAB HEMATOLOGY METHOD 08/17/2024 6:09 PM EDT [facility] Body Fluid Structure of right pleural cavity / Unknown Non-blood Collection / Unknown 08/17/2024 10:58 AM EDT 08/17/2024 11:11 AM EDT us Boby Rouse FOOD SAFETY TECHNICIAN LAB BODY FLUIDS AND STOOLS ORDERABLES NO SPECIMEN TYPE/SOURCE Final Result [facility] [address] [place] [address] * Body fluid, cytospin, pathologist interpretation (08/17/2024 10:58 AM EDT) Only the most recent of3 resultswithin the time period is included. Specimen Type Body Fluid LAB HEMATOLOGY METHOD 08/18/2024 1:12 PM EDT [facility] Specimen Source, Body Fluid Pleural, Right LAB HEMATOLOGY METHOD 08/18/2024 1:12 PM EDT [facility] Clinical Diagnosis, Body Fluid Pleural effusion LAB HEMATOLOGY METHOD 08/18/2024 1:12 PM EDT [facility] Interpretation , Body Fluid No evidence of malignancy; Predominantly chronic inflammatory cells, reactive mesothelial cells. Light blood A resident was involved in the service. I attest I examined the relevant preparations for the specimens and confirmed the diagnosis or interpretation. 08/18/2024 1:12 PM EDT [facility] Pathologist Signature, Body Fluid 08/18/2024 1:12 PM EDT [facility] Comment:Reviewed by: Spike Esteban MD LAB CP ASR DISCLAIMER Yes 08/18/2024 1:12 PM EDT [facility] Body Fluid Structure of right pleural cavity / Unknown Non-blood Collection / Unknown 08/17/2024 10:58 AM EDT 08/17/2024 11:11 AM EDT Boby Rouse APRN LAB BODY FLUIDS AND STOOLS ORDERABLES Final Result [facility] [address] [place] [address] * Chylomicron Electrophoresis (Reflex Only) (08/17/2024 10:57 AM EDT) Chylomicron Electrophoresis Billed 08/25/2024 6:56 PM EDT [facility] ([employer] [facility]) Fluid Pleural fluid specimen / Unknown 08/17/2024 10:57 AM EDT 08/17/2024 11:10 AM EDT Narrative [facility] ([facility]) - 08/25/2024 6:56 PM EDT Performed By: [facility] [address] [place] [id number] [employer] Balancer: Austin Bernal MD, PhD CLIA Number: [id number] Boby Rouse APRN LAB REF LAB BLOOD AND FLUID ORD Final Result Performing Organization Address [facility] Co de Phone Number [facility] ([facility]) [address] [place], [place] [id number] * Triglycerides BF with RFLX to CHYLO (SO) (08/17/2024 10:57 AM EDT) Triglyceride, Fluid 27 mg/dL 08/25/2024 6:56 PM EDT [facility] ([facility]) Triglyceride Fluid Source Pleural fluid 08/25/2024 6:56 PM EDT [facility] ([facility]) Chylomicron Screen, Body Fluid Absent Absent 08/25/2024 6:56 PM EDT [facility] ([facility]) Fluid Pleural fluid specimen / Unknown 08/17/2024 10:57 AM EDT 08/17/2024 11:10 AM EDT Narrative [facility] ([facility]) - 08/25/2024 6:56 PM EDT INTERPRETIVE INFORMATION: Triglycerides, Fluid For information on body fluid reference ranges and/or interpretive guidance visit [email or web address] This test was developed and its performance characteristics determined by [facility]. It has not been cleared or approved by the [place] Food and Drug Administration. This test was performed in a CLIA certified laboratory and is intended for clinical purposes. Chylomicrons were not detected. This appears to be a nonchylous fluid. INTERPRETIVE INFORMATION: Chylomicron Screen, Body Fluid This test was developed and its performance characteristics determined by [facility]. It has not been cleared or approved by the U.S. Food and Drug Administration. This test was performed in a CLIA-certified laboratory and is intended for clinical purposes. Performed By: [facility] [address] [place], [place] [id number] T[employer] Balancer: Austin Bernal MD, PhD CLIA Number: [id number] Boby Rouse APRN LAB REF LAB BLOOD AND FLUID ORD Final Result Performing Organization Address City/[facility]/ZIP Co de Phone Number [facility] ([facility]) [address] [place], [place] [id number] * Total Protein, Pleural Fluid - Pleural Right (08/17/2024 10:57 AM EDT) Only the most recent of3 resultswithin the time period is included. Total Protein, Fluid 3.1 g/dL 08/17/2024 1:14 PM EDT [facility] Pleural Fluid Structure of right pleural cavity / Unknown Non-blood Collection / Unknown 08/17/2024 10:57 AM EDT 08/17/2024 11:08 AM EDT Narrative [facility] - 08/17/2024 1:14 PM EDT This test was developed and its performance characteristics determined by [facility]. The U.S. Food and Drug Administration has not approved or cleared this test. However, FDA clearance or approval is not currently required for clinical use. The results are not intended to be used as the sole means for clinical diagnosis or patient management decisions. Boby Rouse APRN LAB BODY FLUIDS AND STOOLS ORDERABLES Final Result [facility] [address] [place] [address] * Amylase, Pleural Fluid (08/17/2024 10:57 AM EDT) Amylase, Pleural Fluid 6 U/L 08/17/2024 1:23 PM EDT [facility] Pleural Fluid Structure of right pleural cavity / Unknown Non-blood Collection / Unknown 08/17/2024 10:57 AM EDT 08/17/2024 11:08 AM EDT Narrative [facility] - 08/17/2024 1:23 PM EDT Reference Values: No established reference interval. Interpret with caution. This test was developed and its performance characteristics determined by [facility]. The U.S. Food and Drug [...] upper reference limit for serum and a mgjik-[id number] amylase ratio greater than one. Note: Interpretive [...] ORD ERABLES Final Result Performing Organization Address City/[facility]/ZIP Co de Phone Number [facility] [address] [place] [address] * Cholesterol Fluid Battery (08/17/2024 10:57 AM EDT) Only the most recent of2 resultswithin the time period is included. CHOLESTEROL, FLUID 28 mg/dL 08/19/2024 1:48 PM EDT [facility] ([facility]) CHOLESTEROL FLUID SOURCE Pleural fluid 08/19/2024 1:48 PM EDT [facility] ([facility]) Pleural Fluid Structure of right pleural cavity / Unknown Non-blood Collection / Unknown 08/17/2024 10:57 AM EDT 08/17/2024 11:10 AM EDT Narrative [facility] ([facility]) - 08/19/2024 1:48 PM EDT INTERPRETIVE INFORMATION: Cholesterol, Body Fluid For information on body fluid reference ranges and/or interpretive guidance visit [email or web address] This test was developed and its performance characteristics determined by [facility]. It has not been cleared or approved by the [place] Food and Drug Administration. This test was performed in a CLIA certified laboratory and is intended for clinical purposes. Performed By: [facility] [address] [place] [id number] [employer] Balancer: Austin Bernal MD, PhD CLIA Number: [id number] Boby Rouse APRN LAB REF LAB BLOOD AND FLUID ORD Final Result Performing Organization Address City/[facility]/ZIP Co de Phone Number [facility] ([facility]) [address] [place] [address] * Adenosine Deaminase,Pleural Fluid (08/17/2024 10:57 AM EDT) ADA, Pleural Fluid 5 0 - 30 U/L 08/19/2024 3:10 PM EDT [facility] ([facility] Pleural Fluid Structure of right pleural cavity / Unknown Non-blood Collection / Unknown 08/17/2024 10:57 AM EDT 08/17/2024 11:10 AM EDT Narrative [facility] ([facility]) - 08/19/2024 3:10 PM EDT INTERPRETIVE INFORMATION:Adenosine Deaminase, Pleural Fluid This test was developed and its performance characteristics determined by [employer]. It has not been cleared or approved by the US Food and Drug Administration. This test was performed in a CLIA certified laboratory and is intended for clinical purposes. Performed By: [place] [address] T[employer] Balancer: Austin Bernal MD, PhD CLIA Number: [id number] Boby Rouse APRN LAB BODY FLUIDS AND STOOLS ORDERABLES Final Result [facility] ([facility]) [address] [place] [address] * Lactate Dehydrogenase, Pleural Fluid - Right (08/17/2024 10:57 AM EDT) Only the most recent of2 resultswithin the time period is included. LDH, Fluid 121 U/L 08/17/2024 1:14 PM EDT [facility] Pleural Fluid Structure of right pleural cavity / Unknown Non-blood Collection / Unknown 08/17/2024 10:57 AM EDT 08/17/2024 11:08 AM EDT [facility] - 08/17/2024 1:14 PM EDT No [...] the following criteria are present: (1) pleural wofiy-mk-hfkjf protein ratio of >0.5, (2) pleural sjixc-nt-tpinp LDH ratio of >0.6, or (3) a pleural fluid LDH activity that is >2/3 the upper limit of a normal serum LDH activity. Light's criteria may misclassify ~25% of transudates as exudates in heart failure. These can be identified by calculating a asdue-ev-kncxhta albumin gradient (>1.2 g/dL) and/or a lajag-jb-bbmxr protein gradient (>3.1 g/dL). Boby Rouse APRN LAB BODY FLUIDS AND STOOLS ORDERABLES Final Result Performing Organization Address City/[facility] Co de Phone Number [facility] [address] [place] [address] * Body Fluid Culture and Gram Stain - Pleural Right (08/17/2024 10:57 AM EDT) Only the most recent of3 resultswithin the time period is included. Culture No growth at day 4 2024 8:02 AM EDT [facility] Gram Stain Result Few Polymorphonuclear leukocytes 08/20/2024 8:02 AM EDT [facility] Gram Stain Result No organisms seen 08/20/2024 8:02 AM EDT [facility] Pleural Fluid Specimen from pleura obtained by thoracentesis / Unknown Non-blood Collection / Unknown 08/17/2024 10:57 AM EDT 08/17/2024 11:14 AM EDT Boby Rouse APRN LAB MICROBIOLOGY - GENERAL ORDERABLES Final Result [facility] [address] [place] [address] * Glucose - Pleural Right (08/17/2024 10:57 AM EDT) Only the most recent of2 resultswithin the time period is included. Glucose, Fluid 309 mg/dL 08/17/2024 1:14 PM EDT [facility] Pleural Fluid Structure of right pleural cavity / Unknown Non-blood Collection / Unknown 08/17/2024 10:57 AM EDT 08/17/2024 11:08 AM EDT Narrative [facility] - 08/17/2024 1:14 PM EDT [...] STOOLS ORDERABLES Final Result Performing Organization Address [facility] Co de Phone Number [facility] [address] [place] [address] * Albumin - Pleural Right (08/17/2024 10:57 AM EDT) Albumin, Pleural Fluid 1.8 g/dL 08/17/2024 1:14 PM EDT [facility] Pleural Fluid Structure of right pleural cavity / Unknown Non-blood Collection / Unknown 08/17/2024 10:57 AM EDT 08/17/2024 11:08 AM EDT Narrative [facility] - 08/17/2024 1:14 PM EDT REPORTING RESULTS Reference Values: No established reference interval. Results should be interpreted in comparison to the concentration in blood and in conjunction with the clinical context. This test was developed and its performance characteristics determined by [facility]. The U.S. Food and Drug Administration has not approved or cleared this test; however, FDA clearance or approval is not currently required for clinical use. The results are not intended to be used as the sole means for clinical diagnosis or patient management decisions. Boby Rouse APRN LAB BODY FLUIDS AND STOOLS ORDERABLES Final Result Performing Organization Address [facility] Co de Phone Number [facility] [address] [place] [address] * (ABNORMAL) pH, pleural fluid (08/17/2024 10:57 AM EDT) pH, Pleural Fluid 7.49(L) 7.60 - 7.66 LAB HEMATOLOGY METHOD 08/17/2024 11:17 AM EDT [facility] Pleural Fluid Pleural fluid specimen / Unknown Non-blood Collection / Unknown 08/17/2024 10:57 AM EDT 08/17/2024 11:13 AM EDT Narrative [facility] - 08/17/2024 11:17 AM EDT [...] and its performance characteristics determined by the [facility]. Pleural pH is measured [...] BODY FLUIDS AND STOOLS ORDERABLES Final Result [facility] [address] [place] [address] * Cytology - Pleural Right (08/17/2024 10:57 AM EDT) Only the most recent of2 resultswithin the time period is included. Case Report Cytology Case: [id number] Authorizing Provider: Boby Rouse APRN Collected: 08/17/2024 1057 Ordering Location: [facility] Inpatient Received: 08/17/2024 1347 Pathologist: Jayme Duran MD Specimen: Pleural Fluid, Right, RIGHT PLEURAL FLUID 08/20/2024 2:29 PM EDT [facility] Final Diagnosis A. RIGHT PLEURAL FLUID - PREDOMINANTLY CHRONIC INFLAMMATION IN A BACKGROUND OF REACTIVE MESOTHELIAL CELLS AND HISTIOCYTES - NEGATIVE FOR MALIGNANCY 08/20/2024 2:29 PM EDT [facility] at 1429 EDT Clinical History Pleural effusion 08/20/2024 2:29 PM EDT [facility] Previous Cancer Primary Site Other/Unknown Primary Site 08/20/2024 2:29 PM EDT [facility] Gross Description A. RIGHT PLEURAL FLUID 100 ml's laurent fluid processed as thin prep and cell block Cold Time: 5h 02m 08/20/2024 2:29 PM EDT [facility] Fluid Structure of right pleural cavity / Unknown 08/17/2024 10:57 AM EDT 08/17/2024 1:47 PM EDT Boby Rouse APRN LAB CYTOLOGY ORDERABLES Fin al Result [facility] [address] [place] [address] * (ABNORMAL) CBC W/O Differential (08/17/2024 4:28 AM EDT) Only the most recent of4 resultswithin the time period is included. WBC Count 5.50 3.70 - 10.30 10*3/uL LAB HEMATOLOGY METHOD 08/17/2024 4:52 AM EDT [facility] RBC Count 3.46(L) 3.90 - 5.20 10*6/uL LAB HEMATOLOGY METHOD 08/17/2024 4:52 AM EDT [facility] HGB 10.1(L) 11.2 - 15.7 g/dL LAB HEMATOLOGY METHOD 08/17/2024 4:52 AM EDT [facility] HCT 32.2(L) 34.0 - 45.0 % LAB HEMATOLOGY METHOD 08/17/2024 4:52 AM EDT [facility] Platelet Count 396(H) 155 - 369 10*3/uL LAB HEMATOLOGY METHOD 08/17/2024 4:52 AM EDT [facility] MCV 93 79 - 98 fL LAB HEMATOLOGY METHOD 08/17/2024 4:52 AM EDT [facility] MCH 29.2 26.0 - 32.0 pg LAB HEMATOLOGY METHOD 08/17/2024 4:52 AM EDT [facility] MCHC 31.4 30.7 - 35.5 g/dL LAB HEMATOLOGY METHOD 08/17/2024 4:52 AM EDT [facility] RDW 14.2 11.5 - 14.5 % LAB HEMATOLOGY METHOD 08/17/2024 4:52 AM EDT [facility] MPV 9.3 8.8 - 12.5 fL LAB HEMATOLOGY METHOD 08/17/2024 4:52 AM EDT [facility] nRBC 0.0 <=0.0 per 100 WBCs LAB HEMATOLOGY METHOD 08/17/2024 4:52 AM EDT [facility] Blood Venous blood specimen / Unknown Venipuncture / Unknown 08/17/2024 4:28 AM EDT 08/17/2024 4:42 AM EDT us Doron Thayer MD LAB BLOOD ORDERABLES Final Resu lt [facility] [address] [place] [address] * (ABNORMAL) Lactate dehydrogenase (08/17/2024 4:28 AM EDT) Only the most recent of2 resultswithin the time period is included. LDH, Plasma 322(H) 116 - 250 U/L 08/17/2024 5:15 AM EDT [facility] Blood Venous blood specimen / Unknown Venipuncture / Unknown 08/17/2024 4:28 AM EDT 08/17/2024 4:42 AM EDT us Boby Rouse APRN LAB BLOOD ORDERABLES Final Result [facility] [address] [place] [address] * (ABNORMAL) Comprehensive metabolic panel (08/17/2024 4:28 AM EDT) Only the most recent of6 resultswithin the time period is included. Glucose, Plasma 216(H) 74 - 99 mg/dL 08/17/2024 5:15 AM EDT [facility] BUN, Plasma 22 8 - 23 mg/dL 08/17/2024 5:15 AM EDT [facility] Creatinine, Plasma 0.98 0.60 - 1.10 mg/dL 08/17/2024 5:15 AM EDT [facility] BUN/Creatinine Ratio 22 08/17/2024 5:15 AM EDT [facility] Sodium, Plasma 135(L) 136 - 145 mmol/L 08/17/2024 5:15 AM EDT [facility] Potassium, Plasma 3.4(L) 3.6 - 4.9 mmol/L 08/17/2024 5:15 AM EDT [facility] Chloride, Plasma 91(L) 97 - 107 mmol/L 08/17/2024 5:15 AM EDT [facility] CO2, Plasma 33(H) 22 - 29 mmol/L 08/17/2024 5:15 AM EDT [facility] Anion Gap 11 6 - 16 mmol/L 08/17/2024 5:15 AM EDT [facility] Total Calcium, Plasma 9.0 8.9 - 10.2 mg/dL 08/17/2024 5:15 AM EDT [facility] Total Protein 7.3 6.3 - 7.9 g/dL 08/17/2024 5:15 AM EDT [facility] Albumin, Plasma 3.3(L) 3.5 - 5.2 g/dL 08/17/2024 5:15 AM EDT [facility] AST, Plasma 29 10 - 35 U/L 08/17/2024 5:15 AM EDT [facility] ALT, Plasma 19 10 - 35 U/L 08/17/2024 5:15 AM EDT [facility] Alkaline Phosphatase, Plasma 100 46 - 142 U/L 08/17/2024 5:15 AM EDT [facility] Total Bilirubin, Plasma 0.4 0.2 - 1.1 mg/dL 08/17/2024 5:15 AM EDT [facility] eGFRcr 61.1 mL/min/1.7 3m*2 08/17/2024 5:15 AM EDT [facility] Comment:Reported eGFRcr in m L/min/1.73m2 is based the CKD-EPI 2020 equation that does not use a race coefficient. Blood Venous blood specimen / Unknown Venipuncture / Unknown 08/17/2024 4:28 AM EDT 08/17/2024 4:42 AM EDT Doron Thayer MD LAB BLOOD ORDERABLES Final Resu lt Performing Organization Address City/[facility]/ZIP Co de Phone Number [facility] [address] [place] [address] * ECG Adult (08/15/2024 8:51 AM EDT) Only the most recent of4 resultswithin the time period is included. EKG DIAGNOSIS CLASS Abnormal MUSE ECG Ventricular Rate 60 BPM MUSE ECG Atrial Rate 55 BPM MUSE ECG QRSD Interval 188 ms MUSE ECG QT Interval 546 ms MUSE ECG QTC Interval 546 ms MUSE ECG R [place] -70 degrees MUSE ECG T Wave [place] 119 degrees MUSE ECG Diagnosis Ventricular-pa amber rhythm MUSE ECG Diagnosis Abnormal ECG MUSE ECG Diagnosis MUSE ECG Diagnosis Compared to last ECG MUSE ECG Diagnosis No significant change was found MUSE ECG Diagnosis Confirmed by Cristian Irwin ([id number]) on 08/15/2024 10:42:20 AM MUSE ECG 08/15/2024 8:51 AM EDT 08/15/2024 10:42 AM EDT Arben Ibarra MD ECG ORDERABLES Final Result Performing Organization Address City/[facility] Co de Phone Number MUSE ECG * (ABNORMAL) Blood gas panel, arterial (08/15/2024 5:01 AM EDT) pH, Arterial 7.46(H) 7.31 - 7.42 LAB HEMATOLOGY METHOD 08/15/2024 5:14 AM EDT [facility] pCO2, Arterial 46 35 - 48 mmHg LAB HEMATOLOGY METHOD 08/15/2024 5:14 AM EDT [facility] pO2, Arterial 70(L) >70 mmHg LAB HEMATOLOGY METHOD 08/15/2024 5:14 AM EDT [facility] SO2, Measured, Arterial 95 94 - 98 % LAB HEMATOLOGY METHOD 08/15/2024 5:14 AM EDT [facility] Base Excess, Arterial 7.4(H) -2.0 - 3.0 mmol/L LAB HEMATOLOGY METHOD 08/15/2024 5:14 AM EDT [facility] Bicarbonate, Calculated, Arterial 32(H) 22 - 26 mmol/L LAB HEMATOLOGY METHOD 08/15/2024 5:14 AM EDT [facility] Hematocrit, Whole Blood 30.3(L) 34.0 - 45.0 % LAB HEMATOLOGY METHOD 08/15/2024 5:14 AM EDT [facility] Sodium, Whole Blood 137 136 - 145 mmol/L LAB HEMATOLOGY METHOD 08/15/2024 5:14 AM EDT [facility] Potassium, Whole Blood 3.0(L) 3.6 - 4.9 mmol/L LAB HEMATOLOGY METHOD 08/15/2024 5:14 AM EDT [facility] Chloride, Whole Blood 96(L) 97 - 107 mmol/L LAB HEMATOLOGY METHOD 08/15/2024 5:14 AM EDT [facility] Glucose, Whole Blood 75 74 - 99 mg/dL LAB HEMATOLOGY METHOD 08/15/2024 5:14 AM EDT [facility] Ionized Calcium, Whole Blood 4.6 4.6 - 5.1 mg/dL LAB HEMATOLOGY METHOD 08/15/2024 5:14 AM EDT [facility] Lactate, Arterial, Whole Blood 0.7 0.5 - 1.6 mmol/L LAB HEMATOLOGY METHOD 08/15/2024 5:14 AM EDT [facility] Blood Arterial blood specimen / Unknown Arterial Puncture / Unknown 08/15/2024 5:01 AM EDT 08/15/2024 5:13 AM EDT us July Vargas MD LAB BLOOD ORDERABLES Final R esult [facility] [address] [place] [address] * (ABNORMAL) N-Terminal Probnp, Plasma (08/15/2024 4:52 AM EDT) Only the most recent of5 resultswithin the time period is included. N-Terminal, PROBNP, Plasma 6,053(H) 0 - 899 pg/mL 08/15/2024 5:32 AM EDT [facility] Blood Venous blood specimen / Unknown Venipuncture / Unknown 08/15/2024 4:52 AM EDT 08/15/2024 4:59 AM EDT Arben Ibarra MD LAB BLOOD ORDERABLES Final Re sult Performing Organization Address City/[facility]/ZIP Co de Phone Number [facility] [address] [place] [address] * Vitamin D 25 Hydroxy (08/15/2024 4:52 AM EDT) Vitamin D 25 Hydroxy 51.5 20.0 - 80.0 ng/mL 08/15/2024 6:37 AM EDT [facility] Blood Venous blood specimen / Unknown Venipuncture / Unknown 08/15/2024 4:52 AM EDT 08/15/2024 4:59 AM EDT Narrative [facility] - 08/15/2024 6:37 AM EDT Testing performed on Blank Psychiatric Nurse, standardized against NIST SRM 2972. When testing [...] ORDERABLES Final Re sult Performing Organization Address City/[facility]/ZIP Co de Phone Number [facility] [address] [place] [address] * Phosphorus (08/15/2024 4:52 AM EDT) Only the most recent of2 resultswithin the time period is included. Phosphorus, Plasma 3.2 2.5 - 4.5 mg/dL 08/15/2024 5:32 AM EDT [facility] Blood Venous blood specimen / Unknown Venipuncture / Unknown 08/15/2024 4:52 AM EDT 08/15/2024 4:59 AM EDT Arben Ibarra MD LAB BLOOD ORDERABLES Final Re sult Performing Organization Address City/[facility]/ZIP Co de Phone Number [facility] [address] [place] [address] * (ABNORMAL) Hemoglobin A1c (08/14/2024 6:08 PM EDT) Hemoglobin A1c 7.9(H) <5.7 % 08/15/2024 11:41 AM EDT [facility] Blood Venous blood specimen / Unknown Venipuncture / Unknown 08/14/2024 6:08 PM EDT 08/14/2024 6:10 PM EDT Narrative [facility] - 08/15/2024 11:41 AM EDT HA1C Interpretive Data: Diagnosis of Diabetes: Diabetic > or = 6.5% Pre-diabetic 5.7 to 6.4% Non-diabetic < or = 5.6% Glycemic Targets for Type I and Type II Diabetics: Non- Adults <7.0% Adults <6.0% Children and Adolescents <7.5% Source: [place] [employer]. Standards of medical care in diabetes,2017. Diabetes Care.2017:40 (suppl 1):S1-S135. Arben Ibarra MD LAB BLOOD ORDERABLES Final Re sult Performing Organization Address City/[facility]/ZIP Co de Phone Number [facility] [address] [place] [address] * (ABNORMAL) Troponin now and 120 min (08/14/2024 2:55 PM EDT) Only the most recent of3 resultswithin the time period is included. Troponin T, High Sensitivity, 0 Hour 29(H) <14 ng/L 08/14/2024 3:43 PM EDT [facility] Blood Venous blood specimen / Unknown Venipuncture / Unknown 08/14/2024 2:55 PM EDT 08/14/2024 2:58 PM EDT us Jackson Puente MD LAB BLOOD ORDERABLES Fi nal Result [facility] [address] [place] [address] * (ABNORMAL) CBC w/diff (08/14/2024 2:55 PM EDT) Only the most recent of7 resultswithin the time period is included. WBC Count 6.61 3.70 - 10.30 10*3/uL LAB HEMATOLOGY METHOD 08/14/2024 3:00 PM EDT [facility] RBC Count 3.43(L) 3.90 - 5.20 10*6/uL LAB HEMATOLOGY METHOD 08/14/2024 3:00 PM EDT [facility] HGB 10.2(L) 11.2 - 15.7 g/dL LAB HEMATOLOGY METHOD 08/14/2024 3:00 PM EDT [facility] HCT 31.8(L) 34.0 - 45.0 % LAB HEMATOLOGY METHOD 08/14/2024 3:00 PM EDT [facility] Platelet Count 380(H) 155 - 369 10*3/uL LAB HEMATOLOGY METHOD 08/14/2024 3:00 PM EDT [facility] MCV 93 79 - 98 fL LAB HEMATOLOGY METHOD 08/14/2024 3:00 PM EDT [facility] MCH 29.7 26.0 - 32.0 pg LAB HEMATOLOGY METHOD 08/14/2024 3:00 PM EDT [facility] MCHC 32.1 30.7 - 35.5 g/dL LAB HEMATOLOGY METHOD 08/14/2024 3:00 PM EDT [facility] RDW 14.2 11.5 - 14.5 % LAB HEMATOLOGY METHOD 08/14/2024 3:00 PM EDT [facility] MPV 9.2 8.8 - 12.5 fL LAB HEMATOLOGY METHOD 08/14/2024 3:00 PM EDT [facility] nRBC 0.0 <=0.0 per 100 WBCs LAB HEMATOLOGY METHOD 08/14/2024 3:00 PM EDT [facility] Differential Type Automated LAB HEMATOLOGY METHOD 08/14/2024 3:00 PM EDT [facility] Neutrophils % 76 % LAB HEMATOLOGY METHOD 08/14/2024 3:00 PM EDT [facility] Lymphocytes % 11 % LAB HEMATOLOGY METHOD 08/14/2024 3:00 PM EDT [facility] Monocytes % 10 % LAB HEMATOLOGY METHOD 08/14/2024 3:00 PM EDT [facility] Eosinophils % 1 % LAB HEMATOLOGY METHOD 08/14/2024 3:00 PM EDT [facility] Basophils % 1 % LAB HEMATOLOGY METHOD 08/14/2024 3:00 PM EDT [facility] Immature Granulocytes % 1 % LAB HEMATOLOGY METHOD 08/14/2024 3:00 PM EDT [facility] Neutrophils Absolute 5.05 1.60 - 6.10 10*3/uL LAB HEMATOLOGY METHOD 08/14/2024 3:00 PM EDT [facility] Lymphocytes Absolute 0.70(L) 1.20 - 3.90 10*3/uL LAB HEMATOLOGY METHOD 08/14/2024 3:00 PM EDT [facility] Monocytes Absolute 0.69 0.30 - 0.90 10*3/uL LAB HEMATOLOGY METHOD 08/14/2024 3:00 PM EDT [facility] Eosinophils Absolute 0.08 0.00 - 0.50 10*3/uL LAB HEMATOLOGY METHOD 08/14/2024 3:00 PM EDT [facility] Basophils Absolute 0.06 0.00 - 0.10 10*3/uL LAB HEMATOLOGY METHOD 08/14/2024 3:00 PM EDT [facility] Immature Granulocytes Absolute 0.03 0.00 - 0.06 10*3/uL LAB HEMATOLOGY METHOD 08/14/2024 3:00 PM EDT [facility] Blood Venous blood specimen / Unknown Venipuncture / Unknown 08/14/2024 2:55 PM EDT 08/14/2024 2:58 PM EDT [facility] - 08/14/2024 3:00 PM EDT Therapeutic decision making should be based on absolute values, rather than percentages. us Jackson Puente MD LAB BLOOD ORDERABLES Fi nal Result [facility] [address] [place] [address] * XR Chest 2 Views (07/21/2024 11:53 AM EDT) Only the most recent of3 resultswithin the time period is included. Anatomical Region Laterality Modality Chest Digital Radiogra [...] IMG XR PROCEDURES Final Res ult * Anti-DNA antibody, double-stranded (07/21/2024 11:18 AM EDT) Only the most recent of2 resultswithin the time period is included. Double-Strande d DNA (dsDNA) Ab IgG IFA <1:10 <1:10 07/24/2024 2:42 PM EDT [facility] ([facility]) Blood Venous blood specimen / Unknown Venipuncture / Unknown 07/21/2024 11:18 AM EDT 07/21/2024 11:19 AM EDT Narrative [facility] ([place]) - 07/24/2024 2:42 PM EDT INTERPRETIVE INFORMATION: [...] recommendations for testing may be found at [email or web address]/content/eaqdkaqqbo-ymtlmv-vfzyycbj. Performed By: [facility] [address] [place] [id number] [employer] Balancer: Austin Bernal MD, PhD CLIA Number: [id number] Fili Hutson MD LAB BLOOD ORDERABLES Final Result [facility] ([employer]) [address] [place] [address] * (ABNORMAL) Sedimentation Rate, Automated (07/21/2024 11:18 AM EDT) Sedimentation Rate 31(H) <30 mm/hr 2024 1:06 PM EDT [facility] Blood Venous blood specimen / Unknown Venipuncture / Unknown 07/21/2024 11:18 AM EDT 07/21/2024 11:19 AM EDT iFli Hutson MD LAB BLOOD ORDERABLES Final Result Performing Organization Address [facility] Co de Phone Number [facility] [address] [place] [address] * C-reactive protein (07/21/2024 11:18 AM EDT) Only the most recent of2 resultswithin the time period is included. CRP, Plasma 4.2 <=8.0 mg/L 07/21/2024 1:04 PM EDT [facility] Blood Venous blood specimen / Unknown Venipuncture / Unknown 07/21/2024 11:18 AM EDT 07/21/2024 11:19 AM EDT Narrative [facility] - 07/21/2024 1:04 PM EDT This CRP test is appropriate for assessment of infection, systemic inflammation and/or tissue injury. To assess cardiovascular disease risk order high sensitivity CRP (CRPH). Fili Hutson MD LAB BLOOD ORDERABLES Final Result Performing Organization Address [facility] Co de Phone Number [facility] [address] [place] [address] * C3 complement (07/21/2024 11:04 AM EDT) Only the most recent of2 resultswithin the time period is included. C3 Complement 131 84 - 166 mg/dL 07/21/2024 1:17 PM EDT [facility] Blood Venous blood specimen / Unknown Venipuncture / Unknown 07/21/2024 11:04 AM EDT 07/21/2024 11:04 AM EDT us Fili Hutson MD LAB BLOOD ORDERABLES Final Result [facility] [address] [place] [address] * C4 complement (07/21/2024 11:04 AM EDT) Only the most recent of2 resultswithin the time period is included. C4 Complement 22 13 - 36 mg/dL 07/21/2024 1:17 PM EDT [facility] Blood Venous blood specimen / Unknown Venipuncture / Unknown 07/21/2024 11:04 AM EDT 07/21/2024 11:04 AM EDT us Fili Hutson MD LAB BLOOD ORDERABLES Final Result Performing Organization Address City/[facility]/ZIP Co de Phone Number [facility] [address] [place] [address] * ECHO, ADULT TRANSTHORACIC COMPLETE W/ CONTRAST [...] mean PAP 25 mmHg DARI ISCV PA MS(ACCEL) 25.1 mmHg DARI ISCV PA acc slope [...] there is no significant interval change noted. Deejay Schneider MD CV ECHO PROCEDURES Final Resul t * Triglycerides, body fluid (07/15/2024 1:03 PM EDT) Triglyceride, Fluid 39 mg/dL 07/16/2024 11:11 PM EDT [facility] ([employer] [facility] [employer]) Triglyceride Fluid Source Pleural fluid 07/16/2024 11:11 PM EDT [facility] ([employer] [facility]) Pleural Fluid Non-blood Collection / Unknown 07/15/2024 1:03 PM EDT 07/15/2024 1:03 PM EDT Narrative [facility] ([facility]) - 07/16/2024 11:11 PM EDT INTERPRETIVE INFORMATION: Triglycerides, Fluid For information on body fluid reference ranges and/or interpretive guidance visit [email or web address]/bodyfluids/ This test was developed and its performance characteristics determined by [employer] [facility]. It has not been cleared or approved by the [place] Food and Drug Administration. This test was performed in a CLIA certified laboratory and is intended for clinical purposes. Performed By: [facility] [address] [place] [address] [employer]: Austin Bernal MD, PhD CLIA Number: [id number] us Marquita Arndt MD LAB REF LAB BLOOD AND FL UID ORD Final Result [facility] ([employer] [facility]) [address] [place] [address] * MS THORACENTESIS NEEDLE/CATH PLEURA W/IMAGING, HC THORACENTESIS NEEDLE/CATH [...] discussed: No treatment, delayed treatment and observation [place] protocol: Procedure explained and questions answered to [...] midaxillary line Intercostal space: 6th Puncture method: Lwml-lcy-engjna catheter Ultrasound guidance: yes Indwelling catheter: Removed following drainage Catheter size: 8 Fr Number of attempts: 1 Drainage characteristics: Serosanguinous Post-procedure details: Chest x-ray performed: no (ordered and pending) Procedure completion: Tolerated well, no immediate complications Comments: 900cc bronze colored fluid removed and sent for lab studies. CXR pending. us Marquita Arndt MD IN CLINIC/BEDSIDE ORDERA BLES Final Result * Fungal Culture, Sterile Body Fluid (NOT CSF) and JAS (07/15/2024 9:31 AM EDT) Culture No Fungal Growth at 3 Weeks 08/06/2024 8:50 AM EDT [facility] JAS No fungal elements seen 08/06/2024 8:50 AM EDT [facility] Pleural Fluid Specimen from pleura obtained by thoracentesis / Unknown Non-blood Collection / Unknown 07/15/2024 9:31 AM EDT 07/15/2024 9:52 AM EDT us Marquita Arndt MD LAB MICROBIOLOGY - GENER AL ORDERABLES Final Result Performing Organization Address [facility]/ZIP Co de Phone Number [facility] [address] [place] [address] * Light Green Top (07/14/2024 11:17 AM EDT) Extra Hold for add-ons 07/14/2024 2:01 PM EDT [facility] Comment:Auto resulted. Blood Venous blood specimen / Unknown 07/14/2024 11:17 AM EDT 07/14/2024 11:27 AM EDT us Marquita Arndt MD LAB BLOOD ORDERABLES Fin al Result Performing Organization Address [facility] Co de Phone Number [facility] [address] [place] [address] * Potassium (07/13/2024 3:26 PM EDT) Potassium, Plasma 3.8 3.6 - 4.9 mmol/L 07/13/2024 3:49 PM EDT [facility] Blood Venous blood specimen / Unknown Venipuncture / Unknown 07/13/2024 3:26 PM EDT 07/13/2024 3:28 PM EDT us Mason Vaughan MD LAB BLOOD ORDERABLES Final Resu lt Performing Organization Address [facility] Co de Phone Number [facility] [address] [place] [address] * CT Angio Pulmonary Embolism (07/13/2024 10:07 AM EDT) Only the most recent of2 resultswithin the time period is included. Anatomical Region Laterality Modality Chest Computed Tomogra [...] Shanti Quintero MD on 07/13/2024 10:27 AM us Deejay Schneider MD IMG CT PROCEDURES Final Result * Urinalysis Microscopic Examination (07/12/2024 7:27 PM EDT) Urine Urine specimen obtained by clean catch procedure / Unknown Non-blood Collection / Unknown 07/12/2024 7:27 PM EDT 07/12/2024 7:31 PM EDT us Deejay Schneider MD LAB URINE ORDERABLES Final Res ult [facility] [address] [place] [address] * (ABNORMAL) Urinalysis with reflex microscopic (Culture NOT Included) (07/12/2024 7:27 PM EDT) Color, Urine Yellow LAB URINALYSIS - AUTOMATED METHOD 07/12/2024 8:10 PM EDT [facility] Clarity, Urine Clear LAB URINALYSIS - AUTOMATED METHOD 07/12/2024 8:10 PM EDT [facility] Spec [place], Urine 1.009 1.005 - 1.030 LAB URINALYSIS - AUTOMATED METHOD 07/12/2024 8:10 PM EDT [facility] pH, Urine 6.5 5.0 - 8.0 LAB URINALYSIS - AUTOMATED METHOD 07/12/2024 8:10 PM EDT [facility] Protein, Urine 30(A) Negative mg/dL LAB URINALYSIS - AUTOMATED METHOD 07/12/2024 8:10 PM EDT [facility] Glucose, Urine Negative Negative mg/dL LAB URINALYSIS - AUTOMATED METHOD 07/12/2024 8:10 PM EDT [facility] Ketones, Urine Negative Negative mg/dL LAB URINALYSIS - AUTOMATED METHOD 07/12/2024 8:10 PM EDT [facility] Blood, Urine Moderate(A) Negative LAB URINALYSIS - AUTOMATED METHOD 07/12/2024 8:10 PM EDT [facility] Bilirubin, Urine Negative Negative LAB URINALYSIS - AUTOMATED METHOD 07/12/2024 8:10 PM EDT [facility] Urobilinogen, Urine 0.2 0.2 to 1.0 mg/dL LAB URINALYSIS - AUTOMATED METHOD 07/12/2024 8:10 PM EDT [facility] Leukocytes, Urine Negative Negative LAB URINALYSIS - AUTOMATED METHOD 07/12/2024 8:10 PM EDT [facility] Nitrite, Urine Negative Negative LAB URINALYSIS - AUTOMATED METHOD 07/12/2024 8:10 PM EDT [facility] RBC, Urine 4 - 10(A) 0 to 3 /HPF LAB URINALYSIS - AUTOMATED METHOD 07/12/2024 8:10 PM EDT [facility] Comment:This result was prev iously suppressed from the chart. WBC, Urine 0 - 5 0 to 5 /HPF LAB URINALYSIS - AUTOMATED METHOD 07/12/2024 8:10 PM EDT [facility] Comment:This result was prev iously suppressed from the chart. Squamous Epithelial Cells 0 - 2 0 to 5 /HPF LAB URINALYSIS - AUTOMATED METHOD 07/12/2024 8:10 PM EDT [facility] Comment:This result was prev iously suppressed from the chart. Hyaline Casts 0 - 2 0 to 5 /LPF LAB URINALYSIS - AUTOMATED METHOD 07/12/2024 8:10 PM EDT [facility] Comment:This result was prev iously suppressed from the chart. Bacteria, Urine Negative Negative LAB URINALYSIS - AUTOMATED METHOD 07/12/2024 8:10 PM EDT [facility] Comment:This result was prev iously suppressed from the chart. Urine Urine specimen obtained by clean catch procedure / Unknown Non-blood Collection / Unknown 07/12/2024 7:27 PM EDT 07/12/2024 7:31 PM EDT us Deejay Schneider MD LAB URINE ORDERABLES Final Res ult [facility] [address] [place] [address] * Hernadez (ASHLEY) Antibody, IgG (07/12/2024 4:46 PM EDT) Hernadez (ASHLEY) Antibody, IgG 8 0 - 40 AU/mL 07/15/2024 4:15 PM EDT [facility] Realeyes 3D ([place]) Serum 07/12/2024 4:46 PM EDT 07/12/2024 5:06 PM EDT Narrative JERRI CARDOZA) - 07/15/2024 4:15 PM EDT INTERPRETIVE INFORMATION: Hernadez (ASHLEY) Antibody, IgG 29 AU/mL or Less ............. Negative 30 - 40 AU/mL ................ Equivocal 41 AU/mL or Greater .......... Positive Hernadez antibody is highly specific (greater than 90 percent) for systemic lupus erythematosus (SLE) but only occurs in 30-35 percent of SLE cases. The presence of antibodies to Hernadez has variable associations with SLE clinical manifestations. Performed By: [employer] [address] [place] [address] Tire Balancer: Austin Bernal MD, PhD CLIA Number: [id number] Deejay Schneider MD LAB REF LAB BLOOD AND FLUID OR D Final Result Performing Organization Address [facility]/ZIP Co de Phone Number [facility] ([place]) [address] [place] [address] * Complement, total (07/12/2024 4:46 PM EDT) [facility] Complement Activity, Total Turbidimetric 74.8 38.7 - 89.9 U/mL 07/14/2024 11:25 PM EDT [facility] ([place]) Blood Venous blood specimen / Unknown Venipuncture / Unknown 07/12/2024 4:46 PM EDT 07/12/2024 5:07 PM EDT Narrative [facility] ([place]) - 07/14/2024 11:25 PM EDT REFERENCE INTERVAL: [...] complement alternate pathway functional (AH50, test code [id number]) activity suggests defects in the alternate pathway. Performed By: [employer] [address] [place] [address] [employer] Balancer: Austin Bernal MD, PhD CLIA Number: [id number] us Deejay Schneider MD LAB BLOOD ORDERABLES Final Res ult Performing Organization Address [facility]/ZIP Co de Phone Number [facility] ([place]) [address] [place] [address] * (ABNORMAL) Troponin T, High Sensitivity, 2 Hour, Plasma (07/12/2024 3:24 PM EDT) Only the most recent of2 resultswithin the time period is included. Troponin T, High Sensitivity, 2 Hour 24(H) <14 ng/L 07/12/2024 4:10 PM EDT [facility] Troponin Delta 4 <10 ng/L 07/12/2024 4:10 PM EDT [facility] Troponin Delta Interpretation Not Significant 07/12/2024 4:10 PM EDT [facility] Comment:Not Significant. No acute change in troponin observed between the baseline and 2 hour samples. Blood Venous blood specimen / Unknown Venipuncture / Unknown 07/12/2024 3:24 PM EDT 07/12/2024 3:43 PM EDT Yanet Arce MD LAB BLOOD ORDERABLES Final Re sult [facility] [address] [place] [address] * LDH, other, misc fluid (06/29/2024 6:21 PM EDT) Lactate Dehydrogenase Total, Body Fluid 82 U/L 07/02/2024 3:31 PM EDT [facility] ([facility]) LDH Fluid Source Pleural fluid 07/02/2024 3:31 PM EDT [facility] ([facility]) Pleural Fluid Non-blood Collection / Unknown 06/29/2024 6:21 PM EDT 06/29/2024 6:27 PM EDT Narrative [facility] ([facility]) - 07/02/2024 3:31 PM EDT INTERPRETIVE INFORMATION: Lactate Dehydrogenase Total, Body Fluid For information on body fluid reference ranges and/or interpretive guidance visit [email or web address] This test was developed and its performance characteristics determined by [employer]. It has not been cleared or approved by the [place] Food and Drug Administration. This test was performed in a CLIA certified laboratory and is intended for clinical purposes. Performed By: [employer] [address] [place] [id number] [employer] Balancer: Austin Bernal MD, PhD CLIA Number: [id number] us Nelsy Keller MD LAB REF LAB BLOOD AND FLUID ORD Final Result JERRI CARDOZA) [address] [place] [address] * (ABNORMAL) Blood gas panel, venous (06/29/2024 1:42 PM EDT) [facility] Signature pH, Venous 7.33 7.32 - 7.43 LAB HEMATOLOGY METHOD 06/29/2024 1:49 PM EDT [facility] pCO2, Venous 62(HH) 37 - 52 mmHg LAB HEMATOLOGY METHOD 06/29/2024 1:49 PM EDT [facility] pO2, Venous 31 25 - 40 mmHg LAB HEMATOLOGY METHOD 06/29/2024 1:49 PM EDT [facility] SO2, Measured, Venous 49(L) 65 - 80 % LAB HEMATOLOGY METHOD 06/29/2024 1:49 PM EDT [facility] Base Excess, Venous 5.7(H) -2.0 - 3.0 mmol/L LAB HEMATOLOGY METHOD 06/29/2024 1:49 PM EDT [facility] Bicarbonate, Calculated, Venous 33(H) 22 - 26 mmol/L LAB HEMATOLOGY METHOD 06/29/2024 1:49 PM EDT [facility] Hematocrit, Whole Blood 28.6(L) 34.0 - 45.0 % LAB HEMATOLOGY METHOD 06/29/2024 1:49 PM EDT [facility] Sodium, Whole Blood 137 136 - 145 mmol/L LAB HEMATOLOGY METHOD 06/29/2024 1:49 PM EDT [facility] Potassium, Whole Blood 3.5(L) 3.6 - 4.9 mmol/L LAB HEMATOLOGY METHOD 06/29/2024 1:49 PM EDT [facility] Chloride, Whole Blood 97 97 - 107 mmol/L LAB HEMATOLOGY METHOD 06/29/2024 1:49 PM EDT [facility] Glucose, Whole Blood 167(H) 74 - 99 mg/dL LAB HEMATOLOGY METHOD 06/29/2024 1:49 PM EDT [facility] Lactate, Venous, Whole Blood 1.5 0.5 - 2.2 mmol/L LAB HEMATOLOGY METHOD 06/29/2024 1:49 PM EDT [facility] Ionized Calcium, Whole Blood 4.6 4.6 - 5.1 mg/dL LAB HEMATOLOGY METHOD 06/29/2024 1:49 PM EDT [facility] Blood Venous blood specimen / Unknown Venipuncture / Unknown 06/29/2024 1:42 PM EDT 06/29/2024 1:44 PM EDT us Nelsy Keller MD LAB BLOOD ORDERABLES Final R esult [facility] [address] [place] [address] * SARS-CoV-2 COVID-19/Influenza A,B (06/29/2024 1:14 PM EDT) Pathologist [facility] SARS CoV-2/COVID-19 RNA PCR Result Not Detected Not Detected 06/29/2024 1:39 PM EDT [facility] Comment:For In Vitro Diagnos tic Use Influenza A Virus PCR Result Not Detected Not Detected 06/29/2024 1:39 PM EDT [facility] Comment:For In Vitro Diagnos tic Use Influenza B Virus PCR Result Not Detected Not Detected 06/29/2024 1:39 PM EDT [facility] Comment:For In Vitro Diagnos tic Use Swab Nasopharyngeal structure / Unknown Non-blood Collection / Unknown 06/29/2024 1:14 PM EDT 06/29/2024 1:17 PM EDT Narrative [facility] - 06/29/2024 1:39 PM EDT This test was performed using the Onel SARS-CoV-2 & Influenza A/B assay on the Eric Olga analyzer, an RT-PCR based method. Negative results do not preclude infection with the SARS-CoV-2 virus and should not be the sole basis of a patient treatment/management or public health decision. Follow up testing should be performed according to the current CDC recommendations. The limit of detection (LoD) for this assay is 12 cp/mL SARS-CoV-2 RNA. Use of the Onel SARS-CoV-2 & Influenza A/B assay in an asymptomatic screening population is intended to be used as part of an infection control plan that may include additional preventative measures, such as a predefined serial testing plan or directed testing of high-risk individuals. Negative results should be considered presumptive and do not preclude current or future infection obtained through community transmission or other exposures. Negative results must be considered in the context of an individual's recent exposures, history, presence of clinical signs and symptoms consistent with COVID-19. Nelsy Keller MD LAB MICROBIOLOGY - GENERAL O RDERABLES Final Result [facility] [address] [place] [address] * Nasopharyngeal Respiratory Panel (06/29/2024 1:14 PM EDT) Nasopharyngeal Respiratory PCR Interpretation Not Detected for all analytes Not Detected for all analytes 06/29/2024 6:32 PM EDT [facility] Swab Nasopharyngeal structure / Unknown Non-blood Collection / Unknown 06/29/2024 1:14 PM EDT 06/29/2024 1:17 PM EDT Narrative [facility] - 06/29/2024 6:32 PM EDT This assay can detect Adenovirus, Coronavirus, Human Metapneumovirus, Human Rhino/Enterovirus, Influenza A, Influenza A H1, Influenza A H1 2009, Influenza A H3, Influenza B, Parainfluenza Virus 1, Parainfluenza Virus 2, Parainfluenza Virus 3, Parainfluenza Virus 4, Respiratory Syncytial Virus A, Respiratory Syncytial Virus B, Chlamydia pneumoniae, and Mycoplasma pneumoniae. Note: This assay does NOT detect SARS/CoV, novel Coronavirus 2019-nCoV, Bordetella pertussis or Bordetella parapertussis. Nasopharyngeal Respiratory PCR Panel is performed using the [employer] ePlex instrument. This test is FDA approved for use with Nasopharyngeal swabs only. This test is used for clinical purposes. It should not be regarded as investigational or for research. The [facility] Clinical Microbiology Laboratory is certified under the Clinical Laboratory Improvement Amendments of 1988 (CLIA-88) as qualified to perform high complexity clinical laboratory testing. Nelsy Keller MD LAB MICROBIOLOGY - GENERAL O RDERABLES Final Result [facility] [address] [place] [address] * MS THORACENTESIS NEEDLE/CATH PLEURA W/IMAGING, HC THORACENTESIS NEEDLE/CATH PLEURA W/IMAGING (06/29/2024 11:59 AM EDT) Narrative Deangelo Nassar MD - 06/29/2024 11:59 AM EDT Deangelo Nassar MD 06/29/2024 9:36 PM Thoracentesis Performed by: Karson Quintanilla DO Authorized by: Nelsy Keller MD Consent: Consent obtained: Verbal Consent given by: Patient Risks, benefits, and alternatives were discussed: yes Risks discussed: Bleeding, infection, pain, incomplete drainage and pneumothorax Alternatives discussed: No treatment [place] protocol: Patient identity confirmed: Verbally with patient Attending Supervision?: no Sedation: Sedation type: None Anesthesia: Anesthesia method: Local infiltration Local anesthetic: Lidocaine 1% w/o epi Procedure details: Percutaneous Approach: yes Patient position: Sitting Location: R midscapular line Intercostal space: 5th Puncture method: [id number] catheter Ultrasound guidance: yes Indwelling catheter: Removed following drainage Needle gauge: 18 Catheter size: 6 Fr Number of attempts: 1 Fluid characteristics: yellow/pink, transudative. Post-procedure details: Chest x-ray performed: yes Chest x-ray findings: Pleural effusion improved Procedure completion: Tolerated us Nelsy Keller MD IN CLINIC/BEDSIDE ORDERABLES Final Result * MR Thoracic Spine wo IV Contrast (06/25/2024 12:27 PM EDT) Anatomical Region Laterality Modality T-spine Magnetic Resonan ce Impressions 06/25/2024 12:47 PM EDT Given differences in imaging technique, there is no further interval height loss of the T12 compression fracture, with retropulsion of the superior fracture fragment resulting in minimal to mild spinal canal stenosis. Abnormal appearance of the spinal cord extending from T8 through T10 with central increased T2 signal which is asymmetrically enlarged at the T9-10 level, these findings are favored to represent posttraumatic injury given recent fall. Follow-up imaging can be performed to assess stability. Large right-sided pleural effusion. CRITICAL RESULT: No. COMMUNICATION: Per this written report. Drafted by Marquita Mayo MD on 06/25/2024 12:32 PM Final report signed by Marquita Mayo MD on 06/25/2024 12:47 PM Narrative 06/25/2024 12:47 PM EDT CLINICAL INDICATION: Mid-back pain, neuro deficit TECHNIQUE: Multiplanar multiecho sequences were obtained through the lumbar spine utilizing T1 and T2 weighting without the administration of intravenous contrast. COMPARISON: CT imaging from 04/18/2024 and 05/17/2024 FINDINGS: The lumbar spine maintains its usual lordosis. Given differences in imaging technique, there is no further interval height loss of the T12 compression fracture, with retropulsion of the superior fracture fragment resulting in minimal to mild spinal canal stenosis. There is minimal associated STIR hyperintense signal, likely related to continued healing. The remaining vertebral bodies are normal in signal and height. The CSF signal is normal. Abnormal appearance of the spinal cord extending from T8 through T10 with central increased T2 signal which is asymmetrically enlarged at the T9-10 level, these findings are favored to represent posttraumatic injury given recent fall. There is no disc bulge, protrusion or extrusion. The spinal canal and neural foramina are patent. Large right-sided pleural effusion. Diffuse gjir-bm-cbyaqroa fatty muscular atrophy of the paraspinal muscles. The visualized portion of the aorta is normal in caliber. Procedure Note Marquita Mayo MD - 06/25/2024 CLINICAL INDICATION: Mid-back pain, neuro deficit TECHNIQUE: Multiplanar multiecho sequences were obtained through the lumbar spineutilizing T1 and T2 weighting without the administration of intravenouscontrast. COMPARISON: CT imaging from 04/18/2024 and 05/17/2024 FINDINGS: The lumbar spine maintains its usual lordosis. Given differences inimaging technique, there is no further interval height loss of the [id number] fracture, with retropulsion of the superior fracture fragmentresulting in minimal to mild spinal canal stenosis. There is minimalassociated STIR hyperintense signal, likely related to continued healing.The remaining vertebral bodies are normal in signal and height. The CSFsignal is normal. Abnormal appearance of the spinal cord extending from S8ltgtocr T10 with central increased T2 signal which is asymmetricallyenlarged at the T9-10 level, these findings are favored to representposttraumatic injury given recent fall. There is no disc bulge, protrusionor extrusion. The spinal canal and neural foramina are patent. Largeright-sided pleural effusion. Diffuse rdgd-vn-dsvmwocc fatty muscularatrophy of the paraspinal muscles. The visualized portion of the aorta isnormal in caliber. IMPRESSION: Given differences in imaging technique, there is no further intervalheight loss of the T12 compression fracture, with retropulsion of thesuperior fracture fragment resulting in minimal to mild spinal canalstenosis. Abnormal appearance of the spinal cord extending from T8 through T10 withcentral increased T2 signal which is asymmetrically enlarged at the T9-10level, these findings are favored to represent posttraumatic injury givenrecent fall. Follow- up imaging can be performed to assess stability. Large right-sided pleural effusion. CRITICAL RESULT: No. COMMUNICATION: Per this written report. Drafted by Marquita Mayo MD on 06/25/2024 12:32 PM Final report signed by Marquita Mayo MD on 06/25/2024 12:47 PM Obi SMITH IMG MRI PROCEDURES Final Resu lt * Cardiac Device Consult - Pre-MRI (06/18/2024 1:29 PM EDT) MDT EVALUATION RHYTHM AF with V pacing. Patient is CIED DEPENDENT CAR DO NOT SEND Intrinsic Sensing Amplitude 1.00 mV CAR DO NOT SEND Programmed Sensitivity 0.5 mV CAR DO NOT SEND Programmed Sensitivity 2.0 mV CAR DO NOT SEND Pacing Threshold Amplitude 0.500 V CAR DO NOT SEND Pacing Threshold Pulse Width 0.500 msec CAR DO NOT SEND Programmed Pacing Amplitude 2.000 V CAR DO NOT SEND Pacing Threshold Pulse Width 0.600 msec CAR DO NOT SEND Programmed Pacing Amplitude 2.000 V CAR DO NOT SEND Pacing Threshold Pulse Width 0.500 msec CAR DO NOT SEND Impedance 410 Ohms CAR DO NOT SEND Impedance 450 Ohms CAR DO NOT SEND Anatomical Region Laterality Modality Other Narrative 06/18/2024 3:05 PM EDT Pre-MRI recommendations: Device was implanted in 2019, > 6 weeks Implant indication: not provided. Patient is considered CIED DEPENDENT for cardiac rate support at time of interrogation today. CXR from 05/28/2024 shows no evidence of abandoned cardiac leads. Two leads are accounted for. Patient denied having procedure or trauma to the device system since the CXR. CIED system and all of its components are wholly made and manufactured by [employer] and are labeled as MRI conditional. Recommendations pending review and co-signature by provider. DEVICE CLINIC RECOMMENDATIONS: PRE-MRI 1) Interrogate the CIED 2) Validate lead measurements are within acceptable limits. If they are not, do NOT proceed with the MRI 3) Program the MRI conditional device to MRI Safe Mode. 4) Patients who require pacing support, MRI pacing mode must be set to DOO, AOO or VOO 10-15 beats per minute higher than the patient's intrinsic rhythm to prevent competitive pacing. 5) If ICD, ensure tachy therapies are disabled. While disabled, patient must be monitored on telemetry. POST MRI 1) Interrogate the CIED 2) Return device to pre-MRI settings (including tachy therapy, if applicable). 3) Validate lead measurements are within acceptable limits. 4) Notify [facility] if any of the following are discovered in the post-MRI interrogation: Capture threshold change of >1.0 V Sensing drop >50% Pacing impedance change >5O ohms Shock impedance change >5 ohms 5) Leave printed copy of pre-MRI and post-MRI testing results and programming with [facility]. Device Check DEVICE INFO Device type: Dual chamber pacemaker Device company: [employer] / [employer]. Device model: Assurity [id number] Device serial number: [id number] Device implant date: 08/24/2018 LEAD INFO Right atrial lead company: [employer] Right atrial lead model: Tendril STS 2088TC / 46 cm Right atrial lead serial number: [id number] Right atrial lead implant date: 08/24/2018 Right atrial lead trend: Stable Right ventricular lead company: [employer] Right ventricular lead model: Tendril STS 2088TC / 52 cm Right ventricular lead serial number: [id number] Right ventricular lead implant date: 08/24/2018 Right ventricular lead trend: Stable DEVICE CHECK Battery remainin.5-3.8 years Mode: DDDR LRL: 60 Percent A paced: 7.1% Percent V paced: >99% Presenting rhythm: AF with V pacing EVENTS AT/AF burden percent since last counter reset: 52 AT/AF events: Ongoing since Apr 2024. Patient states she's following with Dr. Velasquez at [facility]. On warfarin Since last interrogation there were 0 VT/VF events. us Obi SMITH CV IMPLANTABLE CARDIAC DEVICE PROCEDURES Final Result * XR Thoracic Spine 2 Views (06/16/2024 2:49 PM EDT) Anatomical Region Laterality Modality Spine, T-spine Digital Radiogra phy Impressions 06/16/2024 3:07 PM EDT 1. Unchanged moderate degenerative disc findings at C5-C6 and minimal anterior subluxation at C3-C4 and C4-C5. 2. Compression deformity at T12 with unchanged loss of vertebral body height. 3. Unchanged small right pleural effusion. CRITICAL RESULT: No. COMMUNICATION: Per this written report. Drafted by Marcio Ferrara MD on 06/16/2024 3:00 PM Final report signed by Marcio Ferrara MD on 06/16/2024 3:07 PM Narrative 06/16/2024 3:07 PM EDT CLINICAL INDICATION: pain TECHNIQUE: XR THORACIC SPINE 2 VIEWS, XR CERVICAL SPINE 2 OR 3 VIEWS COMPARISON: Thoracic spine radiograph dated May 13, 2024 and spine survey dated April 12, 2024. FINDINGS: 3 views of the cervical spine show disc space narrowing at C5-C6. Anterior subluxation at C3-C4 and C4-C5. No fracture or bone destruction. Normal joint space and alignment of C1-C2 facet articulations. Prevertebral soft tissues are normal. Calcification in the bilateral carotid artery. Fluid in the right major fissure. 2 views of the thoracic spine show compression deformity at T12 with unchanged loss of vertebral body height. No bone destruction. Vertebral alignment is normal. Unchanged right pleural effusion. Right lower lobe atelectasis is likely. Cardiac silhouette is appropriate in size and configuration. Normal sutures and prior CABG. Pacemaker generator and leads, unchanged. Procedure Note Marcio Ferrara MD - 06/16/2024 CLINICAL INDICATION: pain TECHNIQUE: XR THORACIC SPINE 2 VIEWS, XR CERVICAL SPINE 2 OR 3 VIEWS COMPARISON: Thoracic spine radiograph dated May 13, 2024 and spine survey datedFebru2024. FINDINGS: 3 views of the cervical spine show disc space narrowing at C5-C6. Anteriorsubluxation at C3-C4 and C4-C5. No fracture or bone destruction. Normaljoint space and alignment of C1-C2 facet articulations. Prevertebral softtissues are normal. Calcification in the bilateral carotid artery. Fluidin the right major fissure. 2 views of the thoracic spine show compression deformity at T12 withunchanged loss of vertebral body height. No bone destruction. Vertebralalignment is normal. Unchanged right pleural effusion. Right lower lobeatelectasis is likely. Cardiac silhouette is appropriate in size andconfiguration. Normal sutures and prior CABG. Pacemaker generator andleads, unchanged. IMPRESSION: 1.Unchanged moderate degenerative disc findings at C5-C6 and minimalanterior subluxation at C3-C4 and C4-C5. 2.Compression deformity at T12 with unchanged loss of vertebral bodyheight. 3.Unchanged small right pleural effusion. CRITICAL RESULT: No. COMMUNICATION: Per this written report. Drafted by Marcio Ferrara MD on 06/16/2024 3:00 PM Final report signed by Marcio Ferrara MD on 06/16/2024 3:07 PM Obi SMITH IMG XR PROCEDURES Final Resul t * ENGINEERING ASSOCIATE: C-Spine: XR Cervical Spine (AP/Lateral/Odontoid) (06/16/2024 2:49 PM EDT) Anatomical Region Laterality Modality Spine, C-spine Digital Radiogra phy Impressions 06/16/2024 3:07 PM EDT 1. Unchanged moderate degenerative disc findings at C5-C6 and minimal anterior subluxation at C3-C4 and C4-C5. 2. Compression deformity at T12 with unchanged loss of vertebral body height. 3. Unchanged small right pleural effusion. CRITICAL RESULT: No. COMMUNICATION: Per this written report. Drafted by Marcio Ferrara MD on 06/16/2024 3:00 PM Final report signed by Marcio Ferrara MD on 06/16/2024 3:07 PM Narrative 06/16/2024 3:07 PM EDT CLINICAL INDICATION: pain TECHNIQUE: XR THORACIC SPINE 2 VIEWS, XR CERVICAL SPINE 2 OR 3 VIEWS COMPARISON: Thoracic spine radiograph dated May 13, 2024 and spine survey dated April 12, 2024. FINDINGS: 3 views of the cervical spine show disc space narrowing at C5-C6. Anterior subluxation at C3-C4 and C4-C5. No fracture or bone destruction. Normal joint space and alignment of C1-C2 facet articulations. Prevertebral soft tissues are normal. Calcification in the bilateral carotid artery. Fluid in the right major fissure. 2 views of the thoracic spine show compression deformity at T12 with unchanged loss of vertebral body height. No bone destruction. Vertebral alignment is normal. Unchanged right pleural effusion. Right lower lobe atelectasis is likely. Cardiac silhouette is appropriate in size and configuration. Normal sutures and prior CABG. Pacemaker generator and leads, unchanged. Procedure Note Marcio Ferrara MD - 06/16/2024 CLINICAL INDICATION: pain TECHNIQUE: XR THORACIC SPINE 2 VIEWS, XR CERVICAL SPINE 2 OR 3 VIEWS COMPARISON: Thoracic spine radiograph dated May 13, 2024 and spine survey datedFebru2024. FINDINGS: 3 views of the cervical spine show disc space narrowing at C5-C6. Anteriorsubluxation at C3-C4 and C4-C5. No fracture or bone destruction. Normaljoint space and alignment of C1-C2 facet articulations. Prevertebral softtissues are normal. Calcification in the bilateral carotid artery. Fluidin the right major fissure. 2 views of the thoracic spine show compression deformity at T12 withunchanged loss of vertebral body height. No bone destruction. Vertebralalignment is normal. Unchanged right pleural effusion. Right lower lobeatelectasis is likely. Cardiac silhouette is appropriate in size andconfiguration. Normal sutures and prior CABG. Pacemaker generator andleads, unchanged. IMPRESSION: 1.Unchanged moderate degenerative disc findings at C5-C6 and minimalanterior subluxation at C3-C4 and C4-C5. 2.Compression deformity at T12 with unchanged loss of vertebral bodyheight. 3.Unchanged small right pleural effusion. CRITICAL RESULT: No. COMMUNICATION: Per this written report. Drafted by Marcio Ferrara MD on 06/16/2024 3:00 PM Final report signed by Marcio Ferrara MD on 06/16/2024 3:07 PM us Obi Villegas PA IMG XR PROCEDURES Final Resul t * Hepatitis C Antibody - ED (01/29/2024 3:32 PM EST) Hepatitis C Antibody Negative Negative 01/29/2024 5:07 PM EST [facility] Blood Venous blood specimen / Unknown Venipuncture / Unknown 01/29/2024 3:32 PM EST 01/29/2024 4:03 PM EST us Fortino Ball MD LAB BLOOD ORDERABLES Final Result [facility] [address] [place] [address] * Dexa Bone Density (01/10/2023 10:23 AM EDT) Anatomical Region Laterality Modality L-spine Radiographic Elissa ging Narrative 01/12/2023 8:29 AM EST [facility] - Nephrology, Bone & Mineral Metabolism [address] [place] [address] DXA Bone Densitometry Report: [01/10/2023] Subjective BMD test performed using the Yovia DXA System (analysis version: 14.10) manufactured by [employer]. REFERRING PROVIDER: Alisa Ortega DO CLINICAL INFORMATION: osteoporosis PATIENT NAME: Michelle Felipe PATIENT AGE: 72 y.o. LEGAL SEX: female RADIOGRAPHIC VIEWS: Sites scanned: AP Spine, HIP Right , and HIP Left COMPARISON STUDY: DXA Axial 11/08/2020. FINDINGS: Based on WHO criteria (post-menopausal female) the diagnosis is Osteopenia The lowest T- score is -2.0 in the RFN There is Decline compared to prior measurements FRAX (10-year probability of fracture) - Major Osteoporotic: 12.7 %; Hip: 2.8 % The presence of arthritic or degenerative joint changes in the spine could artefactually increase measured BMD. TREATMENT RECOMMENDATIONS: Measured bone density does not cross threshold for treatment Work up for secondary osteoporosis and metabolic bone disease could be considered based on clinical indications. Additional w/u could include a VFA and forearm BMD Treatment decisions may be based on clinical considerations. Currently available DXA measurement sites, and FRAX could underestimate fracture risk. Suggest general measures to optimize calcium and vitamin D status, fall prevention measures and reduce fracture risk. Consider repeating this study in 1 year(s) or as clinically indicated to assess bone density change or response to treatment (should be performed on the same DXA scanner to allow for direct comparison and calculation of change in BMD). Alisa Kunz DO IMG DXA PROCEDURES Final Resul t * Mammography Breast Screening Tomosynthesis Bilateral (11/09/2021 4:12 PM EDT) Anatomical Region Laterality Modality Breast Bilateral Mammography Impressions 11/09/2021 4:17 PM EDT No mammographic evidence of malignancy. BI-RADS CATEGORY: Overall: 2 - Benign RECOMMENDATION: - Routine Screening Mammogram in 1 Year. Patient Lifetime Risk Score of Breast Malignancy: 5.1 % This risk assessment is calculated using the Deanna Risk Assessment model which may underestimate the lifetime risk of breast malignancy. COMMUNICATION: Computer-aided detection (CAD) and tomosynthesis were utilized by the radiologist in the interpretation of this examination. The results and recommendations will be sent to the patient in a printed lay language version of the imaging report. Narrative 11/09/2021 4:17 PM EDT EXAM: Mammography Breast Screening with Tomosynthesis REASON FOR EXAM: Screening Mammogram HISTORY: Patient is 71 y.o. Hormone history includes control (5 years). Surgical history includes right breast biopsy, 2013 (u/s core benign) and right breast surgery, 2013 (u/s core benign). COMPARISON STUDIES: Compared to: 04/19/2015 Mammography Breast Screening Tomosynthesis Bilateral at [facility] 05/06/2017 Mammography Breast Screening Tomosynthesis Bilateral at [facility] 01/25/2020 Mammography Breast Screening Tomosynthesis Bilateral at [facility] BREAST COMPOSITION: The breasts are heterogeneously dense, which may obscure small masses. FINDINGS: There are post-biopsy clip(s) present in the the right breast. There is no evidence of suspicious masses, calcifications, or other abnormal findings. Jackson Malave MD IMG BI PROCEDURES Final Re sult from Last 3 Months or Most Recently Relevant to Health Maintenance Insurance [facility] [place] [address] Advance Directives * Full Code (Latest Code Status on File) Date Activated Date Inactivated Comments 08/14/2024 5:12 PM 08/24/2024 5:25 PM Question Answer Comments I have reviewed the capacity from the link above and, if needed, have updated to appropriate status: Yes * Full Code Date Activated Date Inactivated Comments 07/12/2024 4:07 PM 07/15/2024 7:05 PM Question Answer Comments I have reviewed the capacity from the link above and, if needed, have updated to appropriate status: Yes * Full Code Date Activated Date Inactivated Comments 05/13/2024 10:08 PM 05/26/2024 1:52 PM Question Answer Comments Patient has decision-making capacity? Yes * Full Code Date Activated Date Inactivated Comments 04/29/2024 11:12 PM 04/30/2024 7:07 PM Question Answer Comments Patient has decision-making capacity? Yes * Full Code Date Activated Date Inactivated Comments 04/18/2024 7:24 PM 04/22/2024 2:28 PM Question Answer Comments Patient has decision-making capacity? Yes Care Teams Com Writer Relationship Specialty Start Date End Date Alisa Kunz DO [address] [address] PCP - General Internal Medicine 03/13/21 Kodi Bustos DO [address] [address] Surgeon Cardiothoracic Surgery 11/06/22 Sujit Arriola MD [address] [place] [address] Consulting Physician Pulmonary Disease 11/06/22 Sujit Reyes MD [address] [place] [phone] Referring Physician 12/04/22 Patricia Yañez LPN TCM Nurse 08/25/24
--- OUTSIDE RECORDS SUMMARY | 2024-08-30 13:09 | XMS_ITS | Encounter Summary ---
Author Organization Healthcare Address [address] [place] [address] Care Team Providers Care Senior Clinical Research Scientist Name Role Phone ZeAlisa willett Torri DO Primary Care Provider [phone] Kodi Bustos DO Unavailable [phone] Sujit Arriola MD Unavailable [phone] Sujit Reyes MD Unavailable [phone] Encounter Details Date Type Department Care Team (Latest Contact Info) Description 07/02/2024 Travel Social History Tobacco Use Types Packs/Day [...] any clubs o r organizations such as roman catholic groups, unions, fraternal or athletic groups, [...] Recorded Patient Health Questionnaire-2 Score 0 06/01/2024 [facility] - Occupational Stress Questionnaire Answer Date Recorded [...] any time in the past 12 m [facility], were you homeless or living in a intermediate (including now)? No 05/27/2024 CAGE ASSESSMENT Answer [...] drink first t anselmo in the morning (EYE-ASSET MANAGEMENT LEAD) to steady your nerves or to get [...] Description 09/08/2024 11:20 AM EDT Office Visit [facility] Internal Medicine [address]rd [place] [phone] Alisa Kunz, DO [address] [place] [address] 10/07/2024 4:00 PM EDT Appointment Cardiac Imaging [address] [place] [address] 10/14/2024 4:00 PM EDT Office Visit [facility] Medicine Specialties [address], [address]nd [place] [address] Lavern Shoemaker MD [address] [place] [address] 10/27/2024 1:40 PM EDT Office Visit [facility] Endocrinology [address] [place] [address] Anne-Marie Kolb L, B[employer] FRUIT CROP FARMER [address] [place] [address] 11/29/2024 10:20 AM EDT Office Visit [facility] Internal Medicine [address] [place] [address] Alisa Kunz, DO [address] [place] [address] 02/02/2025 10:30 AM EST Office Visit [facility] [address] [place] [address] Sadiq Osborne, MBBS [address] [place] [address] documented as of this encounter [...] as of this encounter Care Teams Senior Clinical Research Scientist Relationship Specialty Start Date End Date Alisa Kunz DO [address] [phone] PCP - General Internal Medicine 03/13/21 Kodi Bustos DO [address] [phone] Surgeon Cardiothoracic Surgery 11/06/22 Sujit Arriola MD [address] [place] [address] Consulting Physician Pulmonary Disease 11/06/22 Sujit Reyes MD [address] [place] [address] Referring Physician 12/04/22 documented as of this encounter
--- OUTSIDE RECORDS SUMMARY | 2024-08-30 13:09 | XMS_ITS | Encounter Summary ---
Author Organization Healthcare Address [address] [place] [address] Care Team Providers Care Dye Box Operator Name Role Phone Alisa Kunz DO Primary Care Provider [phone] Kodi Bustos DO Unavailable [phone] Sujit Arriola MD Unavailable [phone] Sujit Reyes MD Unavailable [phone] Encounter Details Date Type Department Care Team (Late st Contact Info) Description 07/02/2024 Telephone [facility] Internal Medicine [address] [place] [address] Alisa Kunz, DO [address] [place] [address] Social History Tobacco Use Types [...] How often do you attend chur or oriental orthodox services? 1 to 4 times per year [...] Recorded Patient Health Questionnaire-2 Score 0 06/01/2024 [facility] [place] of Occupat ional Health - Occupational Stress [...] any time in the past 12 m [facility], were you homeless or living in a long term (including now)? No 05/27/2024 CAGE ASSESSMENT Answer [...] drink first t anselmo in the morning (EYE-CHIEF OF PRODUCTION) to steady your nerves or to get [...] * Telephone Encounter - Shannen Stephens - 07/02/2024 1:33 PM EDT Called pt advised that [facility] brought out the conserving device since her insurance will not cover to portable concentrator * Telephone Encounter - Sonam Pretty - 07/02/2024 11:37 AM EDT Clinical Concern/Question Reason for Call: Pt asking for Shannen to give her a call back regarding a breathing machine. Pls advise. Thank you! Best contact number: [phone] (home) Optimal time of day to reach caller: ANYTIME Additional comments/information from caller: None Note: Please do not reply to this message. Follow-up communication and further actions as a result of this message need to be communicated with the patient directly, if the patient is not active onMyChart. If the patient is active on MyChart, they will receive notification of the communication/outcome via [employer]. documented in this encounter Plan of Treatment Upcoming Encounters Date Type Department Care Team (Late st Contact Info) Description 09/08/2024 11:20 AM EDT Office Visit [facility] Internal Medicine [address]rd [place] [phone] Alisa Kunz, DO [address] [facility] [address] [place] [phone] 10/07/2024 4:00 PM EDT Appointment Cardiac Imaging [address] [place] [address] 10/14/2024 4:00 PM EDT Office Visit [facility] Medicine Specialties [address] [place] [address] Lavern Shoemaker MD [address] [place] [address] 10/27/2024 1:40 PM EDT Office Visit [facility] Endocrinology [address] [place] [address] Anne-Marie Kolb L, WIRE ROPE FABRICATION SUPERVISOR [address] [facility] [address] [place] [phone] 11/29/2024 10:20 AM EDT Office Visit [facility] Internal Medicine [address]rd [place] [address] Alisa Kunz, DO [address] [facility] [address] [place] [address] 02/02/2025 10:30 AM EST Office Visit [facility] Medicine Specialties [address] [place] [address] Sadiq Osborne, SHANA [address] [place] [address] documented as of this encounter [...] documented as of this encounter Care Teams Dye Box Operator Relationship Specialty Start Date End Date Alisa Kunz DO [address] [place] [address] PCP - General Internal Medicine 03/13/21 Kodi Bustos DO [address] [address] Surgeon Cardiothoracic Surgery 11/06/22 Sujit Arriola MD [address] [place] [address] Consulting Physician Pulmonary Disease 11/06/22 Sjuit Reyes MD [address] [place] [address] Referring Physician 12/04/22 documented as of this encounter
--- OUTSIDE RECORDS SUMMARY | 2024-08-30 13:09 | XMS_ITS | Encounter Summary ---
Author Organization [facility] Address [address] [place] [address] Care Team Providers Care Rn Interventional Name Role Phone Alisa Kunz DO Primary Care Provider Kodi Bustos DO Unavailable Sujit Arriola MD Unavailable Sujit Reyes MD Unavailable [phone] Tanya Powell Unavailable [phone] Encounter Details Date Type Department Care Team (Late st Contact Info) Description 06/29/2024 Orders Only [facility] [address] [place] [address] Nelsy Keller MD [address] [place] [address] Stage 3a chronic kidney disease (CMS/HCC) (Primary Dx) Social History Tobacco Use [...] How often do you attend chur or quaker services? 1 to 4 times per year 08/30/2022 Do you belong to any clubs o r organizations such as worship groups, unions, fraternal or athletic groups, or [...] Recorded Patient Health Questionnaire-2 Score 0 06/01/2024 [facility] [place] of Occupat ional Health - Occupational Stress [...] in the past 12 m [facility], were you homeless or living in a mcfp (including now)? No 05/27/2024 CAGE ASSESSMENT Answer [...] drink first t anselmo in the morning (EYE-DRY CLEANING CHECKER) to steady your nerves or to get rid of a hangover? 0 06/29/2024 CAGE Questionnaire Score 0 025 Utilities Answer Date Recorded In the past 12 months has e [employer], gas, oil, or water [employer] threatened to shut off services in your [...] Date of Assessment Author No Risk Indicated 06/29/2024 1:18 PM EDT Zina Fraire RN * Question Answer Date of Assessment Author 1. Wish to be (Past 1 Month) No 025 1:18 PM EDT Zina Gordon, RN 2. Non-Specific Active Suici dillon Thoughts (Past 1 Month) No 06/29/2024 1:18 PM EDT Shana Gordon, EVITA 6. Suicidal Behavior (Lifetime) No 5 1:18 PM EDT Zina Gordon, RN documented as of this encounter Plan of Treatment Upcoming Encounters Date Type Department Care Team (Late st Contact Info) Description 09/08/2024 11:20 AM EDT Office Visit [facility] Internal Medicine [address]rd [place] [address] Alisa Kunz DO [address] [place] [address] 10/07/2024 4:00 PM EDT Appointment Cardiac Imaging [address] [place] [address] 10/14/2024 4:00 PM EDT Office Visit [facility] Medicine Specialties [address] [place] [address] Lavern Shoemaker MD [address] [place] [address] 10/27/2024 1:40 PM EDT Office Visit [facility] Endocrinology [address] [place] [phone] Anne-Marie Kolb L, LICENSED INVESTMENT SALES ASSISTANT [address] [facility] [address] [place] [address] 11/29/2024 10:20 AM EDT Office Visit [facility] Internal Medicine [address] [place] [address] Alisa Kunz L, DO [address] [place] [address] 02/02/2025 10:30 AM EST Office Visit [facility] Medicine Specialties [address] [place] [address] Sadiq Osborne, SHANA [address] [place] [address] documented as of this encounter Results * Total Protein, Pleural Fluid (06/29/2024 6:21 PM EDT) Total Protein, Fluid 2.3 g/dL 06/30/2024 8:55 AM EDT [facility] Pleural Fluid Pleural fluid specimen / Unknown Non-blood Collection / Unknown 06/29/2024 6:21 PM EDT 06/30/2024 8:36 AM EDT Narrative [facility] - 06/30/2024 8:55 AM EDT This test was developed and its performance characteristics determined by [facility]. The U.S. Food and Drug Administration has not approved or cleared this test. However, FDA clearance or approval is not currently required for clinical use. The results are not intended to be used as the sole means for clinical diagnosis or patient management decisions. us Nelsy Keller MD LAB BODY FLUIDS AND STOOLS O RDERABLES Final Result [facility] [address] [place] [address] documented in this encounter Visit Diagnoses Diagnosis Stage 3a chronic kidney disease (CMS/HCC)- Primary documented in this encounter Additional Health Concerns Infection Onset Date Last Indicated Resolved Time COVID-19 Rule-Out 06/29/2024 06/29/2024 06/29/2024 1:39 PM EDT Respiratory Rule-Out 06/29/2024 06/29/2024 025 6:32 PM EDT Assessment Noted Time PHQ-9 Depression Total Score: 0 06/02/19 25 1:21 PM EDT A fall risk assessment has been complete d for the patient 06/16/2024 2:55 PM EDT A Body Mass Index follow-up plan has been documented for the patient 06/16/2024 4:07 PM EDT documented as of this encounter Care Teams Rn Interventional Relationship Specialty Start Date End Date Alisa Kunz DO [address] [place] [address] PCP - General Internal Medicine 03/13/21 Kodi Bustos DO [address] [phone] Surgeon Cardiothoracic Surgery 11/06/22 Sujit Arriola MD [address] [place] [phone] Consulting Physician Pulmonary Disease 11/06/22 Sujit Reyes MD [address] [facility] [address] [place] [phone] Referring Physician 12/04/22 Tanya Powell [address] [facility] [address] [place] [address] Registered Nurse 04/02/24 07/01/24 documented as of this encounter
--- OUTSIDE RECORDS SUMMARY | 2024-08-30 13:09 | XMS_ITS | Encounter Summary ---
Author Organization [facility] Address [address] [place] [address] Care Team Providers Care Solution Developer Name Role Phone Alisa Kunz DO Primary Care Provider [phone] Kodi Bustos DO Unavailable [phone] Sujit Arriola MD Unavailable [phone] Sujit Reyes MD Unavailable [phone] Tanya Powell Unavailable [phone] Encounter Details Date Type Department Care Team (Latest Contact Info) Description 07/01/2024 Travel Social History Tobacco Use Types Packs/Day [...] How often do you attend chur or sabianist services? 1 to 4 times per year 08/30/2022 Do you belong to any clubs o r organizations such as methodist groups, unions, fraternal or athletic groups, or [...] Recorded Patient Health Questionnaire-2 Score 0 06/01/2024 [facility]ational Stress Questionnaire Answer Date [...] any time in the past 12 m [facility], were you homeless or living in [...] drink first t anselmo in the morning (EYE-SUPPORT SERVICES COORDINATOR) to steady your nerves or to [...] Description 09/08/2024 11:20 AM EDT Office Visit [facility] Internal Medicine [address], [address]rd [place] [address] Alisa Kunz, DO [address] [facility] 304 [place] [address] 10/07/2024 4:00 PM EDT Appointment Cardiac Imaging [address] [place] [address] 10/14/2024 4:00 PM EDT Office Visit [facility] Medicine Specialties [address], [address] [place] [address] Lavern Shoemaker MD [address] [place] [address] 10/27/2024 1:40 PM EDT Office Visit [facility] Endocrinology [address] [place] [address] Anne-Marie Kolb L, MERINGUER [address] [facility] 125 [place] [address] 11/29/2024 10:20 AM EDT Office Visit [facility] Internal Medicine [address], [address] [place] [address] Alisa Kunz DO [address] [place] [address] 02/02/2025 10:30 AM EST Office Visit [facility] [address], [address] [place] [address] Sadiq Osborne, LARISSABS [address] [place] [address] documented as of this encounter [...] documented as of this encounter Care Teams Solution Developer Relationship Specialty Start Date End Date Alisa Kunz DO [address] [place] [address] PCP - General Internal Medicine 03/13/21 Kodi Bustos DO [address] [place] [address] Surgeon Cardiothoracic Surgery 11/06/22 Sujit Arriola MD [address] [place] [address] Consulting Physician Pulmonary Disease 11/06/22 Sujit Reyes MD [address] [place] [address] Referring Physician 12/04/22 Tanya Powell [address] [facility] 125 [place] [address] Registered Nurse 04/02/24 07/01/24 documented as of this encounter
--- OUTSIDE RECORDS SUMMARY | 2024-08-30 13:09 | XMS_ITS | Encounter Summary ---
Author Organization [facility] Address [address] [place] [address] Care Team Providers Care Screen Stretcher Name Role Phone Alisa Kunz DO Primary Care Provider Kodi Bustos DO Unavailable Sujit Arriola MD Unavailable Sujit Reyes MD Unavailable [phone] Tanya Powell Unavailable Ekaterina Gómez Unavailable Unavailable Zully Caldwell LPN Unavailable Unavailable Reason for Visit * Reason Onset Date Comments HCN Clinical Concern/Question 06/28/2024 Encounter Details Date Type Department Care Team (Late st Contact Info) Description 06/28/2024 Telephone [facility] [address] [place] [address] Andra Herman MD [address] [place] [address] HCN Clinical Concern/Question Social History Tobacco Use [...] you attend [facility] or taoist services? 1 to 4 times per year 08/30/2022 Do you belong to any clubs o r organizations such as sikhism groups, unions, fraternal or athletic groups, or [...] Recorded Patient Health Questionnaire-2 Score 0 07/21/2024 [facility] of Occupat ional Health - Occupational Stress [...] any time in the past 12 m [facility], were you homeless or living in [...] drink first t anselmo in the morning (EYE-STAFF ELECTRONIC WARFARE OFFICER) to steady your nerves or to get rid of a hangover? 0 07/12/2024 CAGE Questionnaire Score 0 025 Utilities Answer Date Recorded In the past 12 months has e [employer], gas, oil, or water company threatened to [...] or overeating Several days 07/21/2024 9:23 AM EDT Willis, Kaitli n R Feeling bad about yourself - or that [...] Pedroza RN documented as of this encounter Miscellaneous Notes * Telephone Encounter - PetersonKvng - 07/09/2024 10:56 AM EDT Clinical Concern/Question Reason for Call: She said she was online but no one every got on the appt and was told someone would call her back but she hasn't been contacted. Best contact number: [phone] (home) Optimal time of day to reach [...] receive notification of the communication/outcome via MyChart. * Telephone Encounter - Lisette Elliott - 06/28/2024 10:09 AM EDT Patient's appointment has been change to TH per Dr. Herman * Telephone Encounter - Tanya Gould - 06/28/2024 9:53 AM EDT Patient Phone Message Reason for Call: Pt is calling, states she is awaiting to hear back from another DR to determine if they are going to admit pt to the hospital today, she has an appt with Dr Hermna at 220 and wanting to see if that can be done via phone. Please advise Best contact number and optimal time of day to reach caller: [phone] Note: Please do not reply to this [...] Description 09/08/2024 11:20 AM EDT Office Visit [facility] Internal Medicine [address]rd [place] [address] Alisa Kunz, DO [address] [place] [address] 10/07/2024 4:00 PM EDT Appointment Cardiac Imaging [address] [place] [address] 10/14/2024 4:00 PM EDT Office Visit [facility] Medicine Specialties [address]nd [place] [address] Lavern Shoemaker MD [address] [place], [place] [id number] 10/27/2024 1:40 PM EDT Office Visit [facility] Endocrinology [address] [place] [address] Anne-Marie Kolb, YOUTH CARE WORKER 2[address] [facility] 125 [place] [address] 11/29/2024 10:20 AM EDT Office Visit [facility] Internal Medicine [address]rd [place] [address] Alisa Kunz, DO [address] [facility] 304 [place] [address] 02/02/2025 10:30 AM EST Office Visit [facility] Medicine Specialties [address]nd [place] [address] Sadiq Osborne MBBS [address] [place], [place] [phone] documented as of this encounter Visit Diagnoses Not on filedocumented in this encounter Additional Health Concerns Infection Onset Date Last Indicated Resolved Time COVID-19 Rule-Out 06/29/2024 06/29/2024 06/29/2024 1:39 PM EDT Respiratory Rule-Out 06/29/2024 06/29/20242 025 6:32 PM EDT Assessment Noted Time PHQ-9 Depression Total Score: 0 06/02/19 25 1:21 PM EDT A fall risk assessment has been complete d for the patient 06/16/2024 2:55 PM EDT A Body Mass Index follow-up plan has been documented for the patient 06/16/2024 4:07 PM EDT documented as of this encounter Care Teams Screen Stretcher Relationship Specialty Start Date End Date Alisa Kunz DO [address] [place] [address] PCP - General Internal Medicine 03/13/21 Kodi Bustos DO [address] [address] Surgeon Cardiothoracic Surgery 11/06/22 Sujit Arriola MD [address] [place] [address] Consulting Physician Pulmonary Disease 11/06/22 Sujit Reyes MD [address] [place] [address] Referring Physician 12/04/22 Tanya Powell 2[address] [facility] 125 [place] [address] Registered Nurse 04/02/24 07/01/24 Ekaterina Gómez Commercial Painter Cardiovascular Technologist 07/14/24 07/14/24 Zully Cadlwell, MARYBETH VALUE-[place]ED [place] [address] TCM Nurse 07/16/24 08/15/24 documented as of this encounter
--- OUTSIDE RECORDS SUMMARY | 2024-08-30 13:10 | XMS_ITS | Encounter Summary ---
Author Organization [facility] Address [address] [place] [address] Care Team Providers Care Escalator Installer Name Role Phone Alisa Kunz DO Primary Care Provider Kodi Bustos DO Unavailable [phone] Sujit Arriola MD Unavailable [phone] Sujit Reyes MD Unavailable [phone] Ekaterina Gómez Unavailable Unavailable Zully Caldwell LPN Unavailable Unavailable Ekaterina Gómez Unavailable Unavailable Patricia Yañez LPN Unavailable Unavailab le Encounter Details Date Type Department Care Team (Late st Contact Info) Description 07/08/2024 Results Follow-Up [facility] Medicine Specialties [address] [place] [address] Lavern Shoemaker MD [address] [place] [id number] Social History Tobacco Use Types Packs/Day Years [...] How often do you attend chur or church services? 1 to 4 times per year [...] Patient Health Questionnaire-2 Score 0 06/01/2024 [facility] of Occupat ional Health - Occupational [...] in a jail (including now)? No 05/27/2024 CAGE ASSESSMENT Answer [...] drink first t anselmo in the morning (EYE-SECURITY COMPLIANCE SPECIALIST) to steady your nerves or to get rid of a hangover? 0 07/12/2024 CAGE Questionnaire Score 0 025 Utilities Answer Date Recorded In the past 12 months has th e [employer], gas, oil, or water [employer] threatened to shut off services in your [...] Description 09/08/2024 11:20 AM EDT Office Visit [facility] Internal Medicine [address]rd [place] [address] Alisa Kunz, [address] [place] [address] 10/07/2024 4:00 PM EDT Appointment Cardiac Imaging [address] [place] [address] 10/14/2024 4:00 PM EDT [facility] [address]nd [place] [address] Lavern Shoemaker MD [address] [place] [address] 10/27/2024 1:40 PM EDT Office Visit [facility] Endocrinology [address] [place] [address] Anne-Marie Kolb, OPERATING ROOM RN [address] [place] [address] 11/29/2024 10:20 AM EDT Office Visit [facility] Internal Medicine [address], [address]rd [place] [address] Alisa Kunz DO [address] [place] [address] 02/02/2025 10:30 AM EST [facility] [address], [address] [place] [address] Sadiq Osborne, SHANA [address] [place] [address] documented as of this encounter [...] documented as of this encounter Care Teams Escalator Installer Relationship Specialty Start Date End Date Alisa Kunz DO [address] [place] [address] PCP - General Internal Medicine 03/13/21 Kodi Bustos DO [address] [address] Surgeon Cardiothoracic Surgery 11/06/22 Sujit Arriola MD [address] [place] [address] Consulting Physician Pulmonary Disease 11/06/22 Sujit Reyes MD [address] [place] [address] Referring Physician 12/04/22 Ekaterina Gómez Sqe Window Decorator 07/14/24 07/14/24 Zully Caldwell LPN VALUE-[place]ED [place] [address] TCM Nurse 07/16/24 08/15/24 Ekaterina Gómez Sqe Window Decorator 08/16/24 08/16/24 Patricia Yañez LPN TCM Nurse 08/25/24 documented as of this encounter
--- OUTSIDE RECORDS SUMMARY | 2024-08-30 13:10 | XMS_ITS | Encounter Summary ---
Author Organization [facility] Address [address] [place] [address] Care Team Providers Care Records Coordinator Name Role Phone ZeAlisa willett Torri DO Primary Care Provider [phone] Kodi Bustos DO Unavailable [phone] Sujit Arriola MD Unavailable [phone] Sujit Reyes MD Unavailable [phone] Encounter Details Date Type Department Care Team (Latest Contact Info) Description 07/12/2024 Travel Social History Tobacco Use Types Packs/Day [...] often do you attend chur ch or evangelical services? 1 to 4 times per year 08/30/2022 Do you belong to any clubs o r organizations such as adventist groups, unions, fraternal or athletic groups, or [...] Recorded Patient Health Questionnaire-2 Score 0 06/01/2024 [facility] - Occupational Stress Questionnaire Answer Date [...] in the past 12 m [facility], were you homeless or living in [...] drink first t anselmo in the morning (EYE-SEED TRUCKER) to steady your nerves or to get [...] Date of Assessment Author No Risk Indicated 07/12/2024 1:30 PM EDT StagerJavier RN * Question Answer Date of Assessment Author 1. Wish to be (Past 1 Month) No 025 1:30 PM EDT Javier Melgar RN 2. Non-Specific Active Suici dillon Thoughts (Past 1 Month) No 07/12/2024 1:30 PM EDT Elida Melgar RN 6. Suicidal Behavior (Lifetime) No 5 1:30 PM EDT Javier Melgar RN documented as of this encounter Plan of Treatment Upcoming Encounters Date Type Department Care Team (Late st Contact Info) Description 09/08/2024 11:20 AM EDT Office Visit [facility] Internal Medicine [address], [address]rd [place] [address] Alisa Kunz DO [address] [place] [address] 10/07/2024 4:00 PM EDT Appointment Cardiac Imaging [address] [place] [address] 10/14/2024 4:00 PM EDT Office Visit [facility] Medicine Specialties [address], [address] [place] [address] Lavern Shoemaker MD [address] [place] [address] 10/27/2024 1:40 PM EDT Office Visit [facility] Endocrinology [address] [place] [address] Anne-Marie Kolb, INDUSTRIAL ORGANIZATIONAL PSYCHOLOGIST [address] [place] [address] 11/29/2024 10:20 AM EDT Office Visit [facility] Internal Medicine [address], [address]rd [place] [address] Alisa Kunz DO [address] [place] [address] 02/02/2025 10:30 AM EST [facility] [address], [address] [place] [address] Sadiq Osborne MBBS [address] [place], [place] [phone] documented as of this encounter Visit Diagnoses [...] documented as of this encounter Care Teams Records Coordinator Relationship Specialty Start Date End Date Alisa Kunz DO [address] [place] [address] PCP - General Internal Medicine 03/13/21 Kodi Bustos DO [address] [place] [address] Surgeon Cardiothoracic Surgery 11/06/22 Sujit Arriola MD [address] [place] [address] Consulting Physician Pulmonary Disease 11/06/22 Sujit Reyes MD [address] [place] [address] Referring Physician 12/04/22 documented as of this encounter
--- OUTSIDE RECORDS SUMMARY | 2024-08-30 13:10 | XMS_ITS | Encounter Summary ---
Author Organization [facility] Address [address] [place] [address] Care Team Providers Care Horticultural Technical Officer Name Role Phone Alisa Kunz DO Primary Care Provider [phone] Kodi Bustos DO Unavailable [phone] Sujit Arriola MD Unavailable [phone] Sujit Reyes MD Unavailable [phone] Encounter Details Date Type Department Care Team (Late st Contact Info) Description 07/12/2024 Telephone [facility] Medicine Specialties [address] [place] [address] [place] [address] Social History Tobacco Use Types Packs/Day Years [...] How often do you attend chur or latter-day services? 1 to 4 times per year 08/30/2022 Do you belong to any clubs o r organizations such as episcopal groups, unions, fraternal or athletic groups, or [...] Recorded Patient Health Questionnaire-2 Score 0 06/01/2024 [facility] of Occupat ional Health - [...] time in the past 12 m [facility], were you homeless or living [...] drink first t anselmo in the morning (EYE-BENCH WORKER BINDING) to steady your nerves or to get [...] 1 Month) No 025 1:30 PM EDT StagerJavier RN 2. Non-Specific Active Suici dillon Thoughts (Past 1 Month) No 07/12/2024 1:30 PM EDT AubreerElida RN 6. Suicidal Behavior (Lifetime) No 1:30 PM EDT AubreerJavier RN documented as of this encounter Miscellaneous Notes * Telephone Encounter - Sarah Hernadez RN - 07/12/2024 3:32 PM EDT Pt is currently in the ED and report was already given per DR. Shoemaker. Will forward incase there is anything else she wants to relay but the patient should be all set now. * Telephone Encounter - Charo Donaldson - 07/12/2024 2:16 PM EDT Patient called She's waiting in the hallway at [facility] and the providers there are wondering if we could call them to tell them why she's needing to be admitted * Telephone Encounter - Charo Donaldson - 07/12/2024 10:18 AM EDT Patient called She wanted to let us know that she completed her chest x-ray She would like a call back to let her know if she can go back home or if she needs to go to the hospital CB: [phone] documented in this encounter Plan of Treatment Upcoming Encounters Date Type Department Care Team (Late st Contact Info) Description 09/08/2024 11:20 AM EDT Office Visit [facility] Internal Medicine [address]rd [place] [address] Alisa Kunz, DO [address] [place] [address] 10/07/2024 4:00 PM EDT Appointment Cardiac Imaging [address] [place] [address] 10/14/2024 4:00 PM EDT [facility] Visit [facility] [address] [place] [address] Lavern Shoemaker MD 800 [place] [address] 10/27/2024 1:40 PM EDT Office Visit [facility] Endocrinology [address] [place] [address] Anne-Marie Kolb L, APPLICATION SOFTWARE ENGINEER [address] [facility] [address] [place] [address] 11/29/2024 10:20 AM EDT Office Visit [facility] Internal Medicine [address]rd [place] [address] Alisa Kunz, DO [address] [place] [address] 02/02/2025 10:30 AM EST [facility] [address] [place] [address] Sadiq Osborne, MBBS [address] [place] [address] documented as of this encounter [...] documented as of this encounter Care Teams Horticultural Technical Officer Relationship Specialty Start Date End Date Alisa Kunz DO [address] [facility] 304 [place] [address] PCP - General Internal Medicine 03/13/21 Kodi Bustos DO [address] [address] Surgeon Cardiothoracic Surgery 11/06/22 Sujit Arriola MD [address] [place] [address] Consulting Physician Pulmonary Disease 11/06/22 Sujit Reyes MD [address] [place] [address] Referring Physician 12/04/22 documented as of this encounter
--- OUTSIDE RECORDS SUMMARY | 2024-08-30 13:10 | XMS_ITS | Encounter Summary ---
Author Organization [facility] Address [address] [place] [address] Care Team Providers Care Page Technician Name Role Phone Alisa Kunz DO Primary Care Provider Kodi Bustos DO Unavailable [phone] Sujit Arriola MD Unavailable [phone] Sujit Reyes MD Unavailable [phone] Ekaterina Gómez Unavailable Unavailable Reason for Visit * Reason Comments Link Encounter Details Date Type Department Care Team (Late st Contact Info) Description 07/14/2024 Patient Outreach POPULATION HEALTH [address] [facility] [address] [place] [address] Ekaterina Gómez Link Social History [...] How often do you attend chur or yazidism services? 1 to 4 times per year [...] Recorded Patient Health Questionnaire-2 Score 0 06/01/2024 [facility] [place] of Occupat ional Health - Occupational Stress [...] drink first t anselmo in the morning (EYE-EARLY CHILDHOOD EDUCATION SPECIALIST) to steady your nerves or to [...] Date of Assessment Author No Risk Indicated 07/14/2024 8:00 AM EDT Todd Jacobs, EVITA * Question Answer Date of Assessment Author 1. Wish to be (Past 1 Month) No 025 8:00 AM EDT Todd Jacobs, EVITA 2. Non-Specific Active Suici dillon Thoughts (Past 1 Month) No 07/14/2024 8:00 AM EDT Todd Jacobs , EVITA 6. Suicidal Behavior (Lifetime) No 8:00 AM EDT Todd Jacobs, EVITA documented as of this encounter Miscellaneous Notes * Progress Notes - Ekaterina Gómez - 07/14/2024 12:19 PM EDT LINK ATUL met with pt bedside for introductions and review of the LINK program. Pt reports she plans to continue utilizing HH following discharge and would like to hire a private duty nurse to help outaround the house. Pt declined LINK and reports she has appropriate support. ATUL provided her card for f/u questions; SW to close. Ekaterina Gómez LINK Navigator [email or web address] documented in this encounter Plan of Treatment Upcoming Encounters Date Type Department Care Team (Late st Contact Info) Description 09/08/2024 11:20 AM EDT Office Visit [facility] Internal Medicine [address]rd [place] [address] Alisa Kunz, DO [address] [place] [address] 10/07/2024 4:00 PM EDT Appointment Cardiac Imaging [address] [place] [address] 10/14/2024 4:00 PM EDT Office Visit [facility] Medicine Specialties [address], [address]nd [place] [address] Lavern Shoemaker MD [address] [place] [address] 10/27/2024 1:40 PM EDT Office Visit [facility] Endocrinology [address] [place] [address] Anne-Marie Kolb, ARTIST'S MODEL [address] [facility] 125 [place] [address] 11/29/2024 10:20 AM EDT Office Visit [facility] Internal Medicine [address] [place] [address] Alisa Kunz, DO [address] [place] [address] 02/02/2025 10:30 AM EST Office Visit [facility] Medicine Specialties [address], [address] [place] [address] Sadiq Osborne, SHANA [address] [place] [address] documented as of this encounter [...] documented as of this encounter Care Teams Page Technician Relationship Specialty Start Date End Date Alisa Kunz DO [address] [place] [address] PCP - General Internal Medicine 03/13/21 Kodi Bustos DO [address] [address] Surgeon Cardiothoracic Surgery 11/06/22 Sujit Arriola MD [address] [place] [address] Consulting Physician Pulmonary Disease 11/06/22 Sujit Reyes MD [address] [place] [address] Referring Physician 12/04/22 Ekaterina Gómez Adult Protective Caseworker Resource Conservationist 07/14/24 07/14/24 documented as of this encounter
--- OUTSIDE RECORDS SUMMARY | 2024-08-30 13:10 | XMS_ITS | Encounter Summary ---
Author Organization Healthcare Address [address] [place] [address] Care Team Providers Care Union Laborer Name Role Phone Alisa Kunz DO Primary Care Provider Kodi Bustos DO Unavailable [phone] Sujit Arriola MD Unavailable [phone] Sujit Reyes MD Unavailable [phone] Encounter Details Date Type Department Care Team (Late st Contact Info) Description 07/08/2024 Telephone [facility] Internal Medicine [address], 3rd [place] [address] Alisa Kunz, DO [address] [place] [address] Social History Tobacco Use Types [...] any clubs o r organizations such as zoroastrian groups, unions, fraternal or athletic groups, or [...] Recorded Patient Health Questionnaire-2 Score 0 06/01/2024 [facility] [place] of Occupat ional Health - Occupational Stress [...] any time in the past 12 m [facility], were you homeless or living [...] drink first t anselmo in the morning (EYE-PATIENT SERVICE SPECIALIST) to steady your nerves or to [...] * Telephone Encounter - Shannen Stephens - 07/09/2024 1:31 PM EDT Called pt advised and she said if it gets to be to bad she will call pulmonary * Telephone Encounter - Alisa Kunz DO - 07/09/2024 11:42 AM EDT She saw pulm yesterday; plan is for CXR next week and based on findings, may recommend admission for further work-up/evaluation- if she doesn't think she can wait until Friday with symptoms, I would have her go to the hospital. * Telephone Encounter - Sonam Pretty - 07/08/2024 11:16 AM EDT Clinical Concern/Question Reason for Call: Dorcas with [facility] calling to let PCP know that pts pain was a 8 out of 10 today and she is having shortness of breath. Also stated pt is coughing up yellow mucus. Thank you! Best contact number: Other: [phone] Optimal time of day to reach caller: [...] [facility] [address], 3[address] [place] [address] Alisa Kunz, DO [address] [facility] [address] [place] [address] 10/07/2024 4:00 PM EDT Appointment Cardiac Imaging [address] [place] [address] 10/14/2024 4:00 PM EDT Office [facility] [address], 2nd [place] [address] Lavern Shoemaker MD [address] [place], [place] [phone] 10/27/2024 1:40 PM EDT Office Visit [facility] Endocrinology [address] [place] [address] Anne-Marie Kolb L, BENCH ASSEMBLER ELECTRICAL [address] [place] [address] 11/29/2024 10:20 AM EDT Office Visit [facility] Internal Medicine [address], 3[address] [place] [address] Alisa Kunz, DO [address] [place] [address] 02/02/2025 10:30 AM EST [facility] [address] 2[address] [place] [address] Sadiq Osborne, SHANA [address] [place] [address] documented as of this encounter [...] documented as of this encounter Care Teams Union Laborer Relationship Specialty Start Date End Date Alisa Kunz DO [address] [place] [address] PCP - General Internal Medicine 03/13/21 Kodi Bustos DO [address] [phone] Surgeon Cardiothoracic Surgery 11/06/22 Sujit Arriola MD [address] [place] [address] Consulting Physician Pulmonary Disease 11/06/22 Sujit Reyes MD [address] [place] [address] Referring Physician 12/04/22 documented as of this encounter
--- OUTSIDE RECORDS SUMMARY | 2024-08-30 13:10 | XMS_ITS | Encounter Summary ---
Author Organization Healthcare Address [address] [place] [address] Care Team Providers Care Second Hand Name Role Phone ZeAlisa willett Torri DO Primary Care Provider [phone] Kodi Bustos DO Unavailable [phone] Sujit Arriola MD Unavailable [phone] Sujit Reyes MD Unavailable [phone] Encounter Details Date Type Department Care Team (Latest Contact Info) Description 07/08/2024 Travel Social History Tobacco Use Types Packs/Day [...] often do you attend chur ch or episcopalian services? 1 to 4 times per year 08/30/2022 Do you belong to any clubs o r organizations such as alevism groups, unions, fraternal or athletic groups, or [...] Recorded Patient Health Questionnaire-2 Score 0 06/01/2024 [facility] - Occupational Stress Questionnaire Answer [...] time in the past 12 m [facility], were you homeless or living in [...] drink first t anselmo in the morning (EYE-DRUG ROOM CLERK) to steady your nerves or to get [...] [facility] Internal Medicine [address] 3rd [place] [address] Alisa Kunz, DO [address] [place] [address] 10/07/2024 4:00 PM EDT Appointment Cardiac Imaging [address] [place] [address] 10/14/2024 4:00 PM EDT Office [facility] [address]nd [place] [address] Lavern Shoemaker MD [address] [place] [address] 10/27/2024 1:40 PM EDT Office Visit [facility] Endocrinology [address] [place] [address] Anne-Marie Kolb L, AUTOMOTIVE FLEET SUPERVISOR [address] [place] [address] 11/29/2024 10:20 AM EDT Office Visit [facility] Internal Medicine [address], 3rd [place] [address] Alisa Kunz, DO [address] [place] [address] 02/02/2025 10:30 AM EST [facility] [address] [place] [address] Sadiq Osborne, MBBS [address] [place] [address] documented as of this encounter [...] documented as of this encounter Care Teams Second Hand Relationship Specialty Start Date End Date Alisa Kunz DO [address] [facility] [address] [place] [address] PCP - General Internal Medicine 03/13/21 Kodi Bustos DO [address] [address] Surgeon Cardiothoracic Surgery 11/06/22 Sujit Arriola MD [address] [place] [address] Consulting Physician Pulmonary Disease 11/06/22 Sujit Reyes MD [address] [place] [address] Referring Physician 12/04/22 documented as of this encounter
--- OUTSIDE RECORDS SUMMARY | 2024-08-30 13:10 | XMS_ITS | Encounter Summary ---
Author Organization Healthcare Address [address] [place] [address] Care Team Providers Care Web Operations Lead Name Role Phone ZeAlisa willett Torri DO Primary Care Provider [phone] Kodi Bustos DO Unavailable [phone] Sujit Arriola MD Unavailable [phone] Sujit Reyes MD Unavailable [phone] Encounter Details Date Type Department Care Team (Latest Contact Info) Description 07/07/2024 Travel Social History Tobacco Use Types Packs/Day [...] often do you attend chur ch or tenriism services? 1 to 4 times per year 08/30/2022 Do you belong to any clubs o r organizations such as synagogue groups, unions, fraternal or athletic groups, or [...] Recorded Patient Health Questionnaire-2 Score 0 06/01/2024 [facility] - Occupational Stress Questionnaire Answer Date [...] time in the past 12 m [facility], were you homeless or living [...] drink first t anselmo in the morning (EYE-PRECISION FARMING SPECIALIST) to steady your nerves or to [...] Description 09/08/2024 11:20 AM EDT Office Visit [facility] Internal Medicine [address], 3rd [place] [address] Alisa Kunz, DO [address] [place] [address] 10/07/2024 4:00 PM EDT Appointment Cardiac Imaging [address] [place] [address] 10/14/2024 4:00 PM EDT Office Visit [place] [facility] [address], 2nd [place] [address] Lavern Shoemaker MD [address] [place] [address] 10/27/2024 1:40 PM EDT Office Visit [facility] Endocrinology [address] [place] [address] Anne-Marie Kolb L, DIRECTOR OF RETAIL MARKETING [address] [place] [address] 11/29/2024 10:20 AM EDT Office Visit [facility] Internal Medicine [address], 3rd [place] [address] Alisa Kunz, DO [address] [place] [address] 02/02/2025 10:30 AM EST Office Visit [facility] [address], [address]nd [place] [address] Sadiq Osborne, MBBS [address] [place] [address] documented as of this encounter [...] documented as of this encounter Care Teams Web Operations Lead Relationship Specialty Start Date End Date Alisa Kunz DO [address] [address] PCP - General Internal Medicine 03/13/21 Kodi Bustos DO [address] [address] Surgeon Cardiothoracic Surgery 11/06/22 Sujit Arriola MD [address] [place] [address] Consulting Physician Pulmonary Disease 11/06/22 Sujit Reyes MD [address] [place] [address] Referring Physician 12/04/22 documented as of this encounter
--- OUTSIDE RECORDS SUMMARY | 2024-08-30 13:10 | XMS_ITS | Encounter Summary ---
Author Organization Healthcare Address [address] [place] [address] Care Team Providers Care Family And Consumer Science Professor Name Role Phone ZeAlisa willett Torri DO Primary Care Provider [phone] Kodi Bustos DO Unavailable [phone] Sujit Arriola MD Unavailable [phone] Sujit Reyes MD Unavailable [phone] Encounter Details Date Type Department Care Team (Latest Contact Info) Description 07/13/2024 Travel Social History Tobacco Use Types Packs/Day [...] Recorded Patient Health Questionnaire-2 Score 0 06/01/2024 [facility] - Occupational Stress Questionnaire [...] time in the past 12 m [facility], were you homeless or living in a alf (including now)? No 05/27/2024 CAGE ASSESSMENT Answer [...] drink first t anselmo in the morning (EYE-OCCUPATIONAL THERAPY ASSISTANT) to steady your nerves or to get [...] Date of Assessment Author No Risk Indicated 07/13/2024 9:00 PM EDT Florentino Rivas * Question Answer Date of Assessment Author 1. Wish to be (Past 1 Month) No 07/13/2024 9:00 PM EDT Florentino Donahue 2. Non-Specific Active Suicidal Thoughts (Past 1 Month) No 07/13/2024 9:00 PM EDT Florentino Donahue 6. Suicidal Behavior (Lifetime) No 07/13/2024 9:00 PM EDT Florentino Donahue documented as of this encounter Plan of Treatment Upcoming Encounters Date Type Department Care Team (Late st Contact Info) Description 09/08/2024 11:20 AM EDT Office Visit [facility] Internal Medicine [address], [address]rd [place] [address] Alisa Kunz, [address] [place] [address] 10/07/2024 4:00 PM EDT Appointment Cardiac Imaging [address] [place] [address] 10/14/2024 4:00 PM EDT Office Visit [place] [facility] [address] 2nd [place] [address] Lavern Shoemaker MD [address] [place] [address] 10/27/2024 1:40 PM EDT Office Visit [facility] Endocrinology [address] [place] [address] Anne-Marie Kolb, VOLUNTEER RECRUITMENT COORDINATOR [address] [place] [address] 11/29/2024 10:20 AM EDT Office Visit [facility] Internal Medicine [address], 3[address] [place] [address] Alisa Kunz DO [address] [place] [address] 02/02/2025 10:30 AM EST [facility] [address] [place] [address] Sadiq Osborne, SHANA [address] [place] [address] documented as of this encounter [...] documented as of this encounter Care Teams Family And Consumer Science Professor Relationship Specialty Start Date End Date Alisa Kunz DO [address] [place] [address] PCP - General Internal Medicine 03/13/21 Kodi Bustos DO [address] [phone] Surgeon Cardiothoracic Surgery 11/06/22 Sujit Arriola MD [address] [place] [address] Consulting Physician Pulmonary Disease 11/06/22 Sujit Reyes MD [address] [facility] [address] [place] [address] Referring Physician 12/04/22 documented as of this encounter
--- OUTSIDE RECORDS SUMMARY | 2024-08-30 13:11 | XMS_ITS | Encounter Summary ---
Author Organization [facility] Address [address] [place] [address] Care Team Providers Care Millinery Salesperson Name Role Phone Alisa Kunz DO Primary Care Provider [phone] Kodi Bustos DO Unavailable [phone] Sujit Arriola MD Unavailable [phone] Sujit Reyes MD Unavailable [phone] Zully Caldwell LPN Unavailable Unavailable Encounter Details Date Type Department Care Team (Latest Contact Info) Description 07/30/2024 Travel Social History Tobacco Use Types Packs/Day [...] often do you attend chur ch or baptism services? 1 to 4 times per year 08/30/2022 Do you belong to any clubs o r organizations such as restorationism groups, unions, fraternal or athletic groups, or [...] Recorded Patient Health Questionnaire-2 Score 0 07/21/2024 [facility] of Occupat [...] drink first t anselmo in the morning (EYE-FORM BUILDING SUPERVISOR) to steady your nerves or to get [...] 09/08/2024 11:20 AM EDT Office Visit [facility] Internal Medicine [address], 3rd [place] [address] Alisa Kunz, DO [address] [facility] [address] [place] [address] 10/07/2024 4:00 PM EDT Appointment Cardiac Imaging [address] [place] [address] 10/14/2024 4:00 PM EDT Office Visit [place] [facility] [address], 2nd [place] [address] Lavern Shoemaker MD [address] [place] [address] 10/27/2024 1:40 PM EDT Office Visit [facility] Endocrinology [address] [place] [address] Anne-Marie Kolb L, HABILITATION ASSISTANT [address] [facility] [address] [place] [address] 11/29/2024 10:20 AM EDT Office Visit [facility] Internal Medicine [address], 3rd [place] [address] Alisa Kunz DO [address] [place] [address] 02/02/2025 10:30 AM EST [facility] [address], [address]nd [place] [address] Sadiq Osborne, LARISSABS [address] [place], [place] [phone] documented as of this encounter Visit Diagnoses [...] documented as of this encounter Care Teams Millinery Salesperson Relationship Specialty Start Date End Date Alisa Kunz DO [address] [facility] [address] [place] [address] PCP - General Internal Medicine 03/13/21 Kodi Bustos DO [address] [place] [address] Surgeon Cardiothoracic Surgery 11/06/22 Sujit Arriola MD [address] [place] [address] Consulting Physician Pulmonary Disease 11/06/22 Sujit Reyes MD [address] [place] [address] Referring Physician 12/04/22 Zully Caldwell, AGRICULTURAL SALES REPRESENTATIVE VALUE-[place] [address] TCM Nurse 07/16/24 08/15/24 documented as of this encounter
--- OUTSIDE RECORDS SUMMARY | 2024-08-30 13:11 | XMS_ITS | Encounter Summary ---
Author Organization [facility] Address [address] [place] [address] Care Team Providers Care Tong Setter Name Role Phone Alisa Kunz Primary Care Provider Kodi Bustos DO Unavailable [phone] Sujit Arriola MD Unavailable [phone] Sujit Reyes MD Unavailable [phone] Zully Caldwell LPN Unavailable Unavailable Encounter Details Date Type Department Care Team (Late st Contact Info) Description 07/20/2024 Results Follow-Up [facility] [address] [place] [address] Ashley, June R, MECHANICAL FITTER [address] [facility] 1st [place] [address] Social History Tobacco Use Types Packs/Day Years [...] any clubs o r organizations such as yazdanism groups, unions, fraternal or athletic groups, or [...] 07/21/2024 [facility] - Occupational Stress Questionnaire [...] any time in the past 12 m [facility], were you homeless or living in a halfway (including now)? No 05/27/2024 CAGE ASSESSMENT Answer [...] drink first t anselmo in the morning (EYE-DRILL HAND) to steady your nerves or to get rid of a hangover? 0 07/12/2024 CAGE Questionnaire Score 0 025 Utilities Answer Date Recorded In the past 12 months has e [employer], gas, oil, or water [employer] threatened to shut off services in your [...] things Not at all 07/21/2024 9:23 AM JANET Catalino Pedro Feeling down, depressed, or hopeless Not at all 07/21/2024 9:23 AM Catalino Hendrickson Patient Health Questionnaire -2 Score 0 07/21/2024 9:23 AM JANET Catalino Pedro * Question Answer Date of [...] watching television Several days 07/21/2024 9:23 AM JANET Catalino Pedro Moving or speaking so slowly that other people could have noticed? Or the opposite - being so fidgety or restless that you have been moving around a lot more than usual. Not at all 07/21/2024 9:23 AM JANET Catalino Pedro Thoughts that you would be better off or hurting yourself in some way Not at all 07/21/2024 9:23 AM Loreta Hendrickson in R Patient Health Questionnaire-9 Score 8 07/21/2024 9:23 AM EDT Makeda Pedro R * If you checked off any problems on this questionnaire so far, Question Answer Date of Assessment Author How difficult have these problems made it for you to do your work, take care of things at home, or get along with other people? Not difficult at all 07/21/2024 9:23 AM Loreta Hendrickson in R documented as of this encounter Miscellaneous Notes * Telephone Encounter - Mary Costello RN - 07/21/2024 10:13 AM EDT Pt returned call to discharge clinic. RN updated pt on lab results, no changes needed to treatment plan per MECHANICAL FITTER instruction. Pt verbalized understanding, denied further needs at this time. * Telephone Encounter - Mary Costello RN - 07/21/2024 10:13 AM EDT ----- Message from Dinah Ramirez APRN sent at 07/20/2024 4:24 PM EDT ----- Please call Ms. Felipe and let her know her labs look good. Her INR was 2.2, so please have her follow her protocol set forth by her coumadin clinic if any changes are needed. Thanks! ----- Message ----- From: Dakota, Background User Sent: 07/20/2024 2:04 PM EDT To: Dinah Ramirez APRN * Telephone Encounter - Mary Costello RN - 07/21/2024 9:43 AM EDT Attempted to reach patient, LVM to call back to our clinic. * Telephone Encounter - Mary Costello RN - 07/21/2024 9:43 AM EDT ----- Message from Dinah Ramirez APRN sent at 07/20/2024 4:24 PM EDT ----- Please call Ms. Felipe and let her know her labs look good. Her INR was 2.2, so please have her follow her protocol set forth by her coumadin clinic if any changes are needed. Thanks! ----- Message ----- From: Lab, Background User Sent: 07/20/2024 2:04 PM EDT To: Dinah Ramirez APRN documented in this encounter Plan of Treatment Upcoming Encounters Date Type Department Care Team (Late st Contact Info) Description 09/08/2024 11:20 AM EDT Office Visit [facility] Internal Medicine [address] 3rd [place] [address] Alisa Kunz DO [address] [place] [address] 10/07/2024 4:00 PM EDT Appointment Cardiac Imaging [address] [place] [address] 10/14/2024 4:00 PM EDT Office Visit [facility] Medicine Specialties [address]nd [place] [address] Lavern Shoemaker MD [address] [place] [address] 10/27/2024 1:40 PM EDT Office Visit [facility] Endocrinology [address] [place] [address] Anne-Marie Kolb, MECHANICAL FITTER [address] [place] [address] 11/29/2024 10:20 AM EDT Office Visit [facility] Internal Medicine [address], 3rd [place] [address] Alisa Kunz DO [address] [place] [address] 02/02/2025 10:30 AM EST [facility] [address] [place] [address] Sadiq Osborne MBBS [address] [place] [address] documented as of this encounter [...] documented as of this encounter Care Teams Tong Setter Relationship Specialty Start Date End Date Alisa Kunz DO [address] [place] [address] PCP - General Internal Medicine 03/13/21 Kodi Bustos DO [address] [address] Surgeon Cardiothoracic Surgery 11/06/22 Sujit Arriola MD [address] [place] [address] Consulting Physician Pulmonary Disease 11/06/22 Sujit Reyes MD [address] [place] [address] Referring Physician 12/04/22 Zully Caldwell LPN VALUE-BASED TR[place] [address] [facility] Nurse 07/16/24 08/15/24 documented as of this encounter
--- OUTSIDE RECORDS SUMMARY | 2024-08-30 13:11 | XMS_ITS | Encounter Summary ---
Author Organization Healthcare Address [address] [place] [address] Care Team Providers Care Busser Name Role Phone Alisa Kunz Primary Care Provider [phone] Kodi Bustos DO Unavailable [phone] Sujit Arriola MD Unavailable [phone] Sujit Reyes MD Unavailable [phone] Zully Caldwell LPN Unavailable Unavailable Encounter Details Date Type Department Care Team (Late st Contact Info) Description 07/19/2024 Telephone [facility] Medicine Specialties [address]nd [place] [address] Sarah Hernadez RN CH-VASCULAR & INTERVENTIONAL RADIOLOGY [...] How often do you attend chur or taoist services? 1 to 4 times [...] Recorded Patient Health Questionnaire-2 Score 0 07/21/2024 [facility] [place] of Occupat ional Health - Occupational Stress [...] time in the past 12 m [facility], were you homeless or living in a group home (including now)? No 05/27/2024 CAGE ASSESSMENT [...] drink first t anselmo in the morning (EYE-VP ANCILLARY) to steady your nerves or to get [...] Description 09/08/2024 11:20 AM EDT Office Visit [facility] Internal Medicine [address], 3rd [place] [address] Alisa Kunz, DO [address] [place] [address] 10/07/2024 4:00 PM EDT Appointment Cardiac Imaging [address] [place] [address] 10/14/2024 4:00 PM EDT Office Visit [facility] Medicine Specialties [address] 2nd [place] [address] Lavern Shoemaker MD [address] [place] [address] 10/27/2024 1:40 PM EDT Office Visit [facility] Endocrinology [address] [place] [address] Anne-Marie Kolb, LICENSE DISTRIBUTOR [address] [place] [address] 11/29/2024 10:20 AM EDT Office Visit [facility] Internal Medicine [address] 3rd [place] [address] Alisa Kunz DO [address] [place] [address] 02/02/2025 10:30 AM EST Office Visit [facility] Medicine Specialties [address] [place] [address] Sadiq Osborne, SHANA [address] [place] [address] documented as of this encounter [...] documented as of this encounter Care Teams Busser Relationship Specialty Start Date End Date Alisa Kunz DO [address] [place] [address] PCP - General Internal Medicine 03/13/21 Kodi Bustos DO [address] [address] Surgeon Cardiothoracic Surgery 11/06/22 Sujit Arriola MD [address] [place] [address] Consulting Physician Pulmonary Disease 11/06/22 Sujit Reyes MD [address] [place] [address] Referring Physician 12/04/22 Zully Caldwell LPN VALUE-[place]ED [place] [address] TCM Nurse 07/16/24 08/15/24 documented as of this encounter
--- OUTSIDE RECORDS SUMMARY | 2024-08-30 13:11 | XMS_ITS | Encounter Summary ---
Author Organization [facility] Address [address] [place] [address] Care Team Providers Care Group Leader Semiconductor Processing Name Role Phone Alisa Kunz DO Primary Care Provider Kodi Bustos DO Unavailable [phone] Sujit Arriola MD Unavailable [phone] Sujit Reyes MD Unavailable [phone] Zully Caldwell LPN Unavailable Unavailable Encounter Details Date Type Department Care Team (Late st Contact Info) Description 07/19/2024 Telephone [facility] Internal Medicine [address], 3rd [place] [address] Alisa Kunz, DO [address] [place] [address] Social History Tobacco Use Types [...] How often do you attend chur or yazidi services? 1 to 4 times [...] Recorded Patient Health Questionnaire-2 Score 0 06/01/2024 [facility] of Occupat ional Health - Occupational Stress [...] drink first t anselmo in the morning (EYE-INFECTION CONTROL NURSE) to steady your nerves or to get rid of a hangover? 0 07/12/2024 CAGE Questionnaire Score 0 025 Utilities Answer Date Recorded In the past 12 months has th e [employer], gas, oil, or water company threatened to [...] * Telephone Encounter - Shannen Stephens - 07/19/2024 3:15 PM EDT Called pt and she is going to have horse breeder get bp and call me back * Telephone Encounter - Alisa Kunz DO - 07/19/2024 1:50 PM EDT Oh that's very low; if it doesn't come back up needs to go to hospital [facility]: hold spironolactone for now. * Telephone Encounter - Shannen Stephens - 07/19/2024 1:47 PM EDT Pts hh nurse called to advise that pts bp is 80/40. Yesterday she took a whole spironolactone and today she took half of one. She has a sitter with her until her gets home and apt at the discharge clinic documented in this encounter Plan of Treatment Upcoming Encounters Date Type Department Care Team (Late st Contact Info) Description 09/08/2024 11:20 AM EDT Office Visit [facility] Internal Medicine [address], 3rd [place] [address] Alisa Kunz, DO [address] [facility] [address] [place] [address] 10/07/2024 4:00 PM EDT Appointment Cardiac Imaging [address] [place] [address] 10/14/2024 4:00 PM EDT Office Visit [facility] Medicine Specialties [address] [address] Lavern Shoemaker MD [address] [place], [place] [phone] 10/27/2024 1:40 PM EDT Office Visit [facility] Endocrinology [address] [place] [address] Anne-Marie Kolb L, WORKFORCE PLANNER [address] [facility] 125 [place] [address] 11/29/2024 10:20 AM EDT Office Visit [facility] Internal Medicine [address], [address] [place] [address] Alisa Kunz, DO [address] [facility] [address] [place] [address] 02/02/2025 10:30 AM EST Office Visit [facility] Medicine Specialties [address], [address] [place] [address] Sadiq Osborne, SHANA [address] [place], [place] [phone] documented as of this encounter Visit Diagnoses [...] documented as of this encounter Care Teams Group Leader Semiconductor Processing Relationship Specialty Start Date End Date Alisa Kunz DO [address] [place] [address] PCP - General Internal Medicine 03/13/21 Kodi Bustos DO [address] [address] Surgeon Cardiothoracic Surgery 11/06/22 Sujit Arriola MD [address] [place] [address] Consulting Physician Pulmonary Disease 11/06/22 Sujit Reyes MD [address] [place] [address] Referring Physician 12/04/22 Zully Caldwell LPN VALUE-[place]ED [place] [address] TCM Nurse 07/16/24 08/15/24 documented as of this encounter
--- OUTSIDE RECORDS SUMMARY | 2024-08-30 13:11 | XMS_ITS | Encounter Summary ---
Author Organization [facility] Address [address] [place] [address] Care Team Providers Care Supervisor Tubing Name Role Phone ZeAlisa DO Primary Care Provider [phone] Kodi Bustos DO Unavailable [phone] Sujit Arriola MD Unavailable [phone] Sujit Reyes MD Unavailable [phone] Zully Caldwell LPN Unavailable Unavailable Reason for Visit * Reason Onset Date Comments Results 07/28/2024 Encounter Details Date Type Department Care Team (Late st Contact Info) Description 07/28/2024 Telephone [facility] Medicine Specialties [address] [place] [address] Ami aMrley Results Social History Tobacco Use Types Packs/Day Years [...] How often do you attend chur or yazdanism services? 1 to 4 times per year 08/30/2022 Do you belong to any clubs o r organizations such as restoration groups, unions, fraternal or athletic groups, or [...] Recorded Patient Health Questionnaire-2 Score 0 07/21/2024 [facility] [...] any time in the past 12 m [facility], were you homeless or living [...] drink first t anselmo in the morning (EYE-PAPER CONE MACHINE OPERATOR) to steady your nerves or [...] Telephone Encounter - Lavern Shoemaker MD - 07/30/2024 11:41 AM EDT Patient called recently to discuss labs, UA and cxr ordered by Rheumatology at last appt. I discussed with her that the labs and ua would need to be reviewed with her Spa Concierge that ordered thembut that I have personally reviewed the xray which shows stable b/l effusions, R slightly larger than at discharge. I reiterated importance of following up with Cardiology on 08/04/24. She stated her EP doctor at [facility] would like to start her on tikosyn. I encouraged her to also see our section maintainer since the physician she will be seeing is general section maintainer with expertise in autoimmune related heart disorders and I believe her mitral valve is contributing to her symptoms, not afib alone. She stated understanding and plans to see cardiology and continue to follow along with [facility] EP. Lavern Shoemaker MD Pulmonary and Critical Care Fellow, PGY5 PICC [phone] * Telephone Encounter - Ami Marley - 07/28/2024 3:32 PM EDT Patient requests a call back to discuss recent lab and x-ray results. documented in this encounter Plan of Treatment Upcoming Encounters Date Type Department Care Team (Late st Contact Info) Description 09/08/2024 11:20 AM EDT Office Visit [facility] Internal Medicine [address], 3rd [place] [address] Alisa Kunz, DO [address] [place] [address] 10/07/2024 4:00 PM EDT Appointment Cardiac Imaging [address] [place] [address] 10/14/2024 4:00 PM EDT Office Visit [facility] Medicine Specialties [address], 2nd [place] [address] Lavern Shoemaker MD [address] [place], [place] [phone] 10/27/2024 1:40 PM EDT Office Visit [facility] Endocrinology [address] [place] [address] Anne-Marie Kolb L, HULL INSPECTOR [address] [facility] 125 [place] [address] 11/29/2024 10:20 AM EDT Office Visit [facility] Internal Medicine [address], 3rd [place] [address] Alisa Kunz, DO [address] [facility] 304 [place] [address] 02/02/2025 10:30 AM EST Office Visit [facility] Medicine Specialties [address] [place] [address] Sadiq Osborne, SHANA [address] [place], [place] [address] documented as of this encounter Visit Diagnoses [...] as of this encounter Care Teams Supervisor Tubing Relationship Specialty Start Date End Date Alisa Kunz DO [address] [place] [address] PCP - General Internal Medicine 03/13/21 Kodi Bustos DO [address] [address] Surgeon Cardiothoracic Surgery 11/06/22 Sujit Arirola MD [address] [place] [address] Consulting Physician Pulmonary Disease 11/06/22 Sujit Reyes MD [address] [place] [address] Referring Physician 12/04/22 Zully Caldwell, MARYBETH VALUE-[place] [address] TCM Nurse 07/16/24 08/15/24 documented as of this encounter
--- OUTSIDE RECORDS SUMMARY | 2024-08-30 13:11 | XMS_ITS | Encounter Summary ---
Author Organization Healthcare Address [address] [place] [address] Care Team Providers Care School Office Manager Name Role Phone Alisa Kunz DO Primary Care Provider [phone] Kodi Bustos DO Unavailable [phone] Sujit Arriola MD Unavailable [phone] Sujit Reyes MD Unavailable [phone] Zully Caldwell LPN Unavailable Unavailable Encounter Details Date Type Department Care Team (Late st Contact Info) Description 07/16/2024 Refill [facility] Medicine Specialties [address], [address]nd [place] [address] Austin Ortiz, [place] [address] Social History Tobacco Use Types Packs/Day Years [...] How often do you attend chur or voodoo services? 1 to 4 times per year 08/30/2022 Do you belong to any clubs o r organizations such as bahai groups, unions, fraTie Society or athletic groups, or school groups? No [...] Recorded Patient Health Questionnaire-2 Score 0 06/01/2024 [facility] - Occupational Stress Questionnaire [...] place to sleep or slept in a longterm (including now)? No 12/30/2023 PHQ-9 Answer Date [...] were you homeless or living in a longterm (including now)? No 05/27/2024 CAGE ASSESSMENT Answer [...] drink first t anselmo in the morning (EYE-PUBLIC INFORMATION COORDINATOR) to steady your nerves or to [...] encounter Miscellaneous Notes * Telephone Encounter - Austin Ortiz PharmD - 07/16/2024 12:19 PM EDT Refill request does not meet protocol. Sending to clinic for review. Additional info: Clarification required: . documented in this encounter Plan of Treatment Upcoming Encounters Date Type Department Care Team (Late st Contact Info) Description 09/08/2024 11:20 AM EDT Office Visit [facility] Internal Medicine [address], 3rd [place] [address] Alisa Kunz DO [address] [place] [address] 10/07/2024 4:00 PM EDT Appointment Cardiac Imaging [address] [place] [address] 10/14/2024 4:00 PM EDT Office Visit [facility] Medicine Specialties [address], [address] [place] [address] Lavern Shoemaker MD 800 [place] [address] 10/27/2024 1:40 PM EDT Office Visit [facility] Endocrinology [address] [place] [address] Anne-Marie Kolb L, ACTIVITIES LEADER [address] [place] [address] 11/29/2024 10:20 AM EDT Office Visit [facility] Internal Medicine [address], 3rd [place] [address] Alisa Kunz DO [address] [place] [address] 02/02/2025 10:30 AM EST Office Visit [facility] Medicine Specialties [address] [place] [address] Sadiq Osborne, SHANA 800 [place] [address] documented as of this encounter [...] documented as of this encounter Care Teams School Office Manager Relationship Specialty Start Date End Date Alisa Kunz DO [address] [place] [address] PCP - General Internal Medicine 03/13/21 Kodi Bustos DO [address] [address] Surgeon Cardiothoracic Surgery 11/06/22 Sujit Arriola MD [address] [place] [address] Consulting Physician Pulmonary Disease 11/06/22 Sujit Reyes MD [address] [place] [address] Referring Physician 12/04/22 Zully Caldwell, MARYBETH VALUE-[place] [address] TCM Nurse 07/16/24 08/15/24 documented as of this encounter
--- OUTSIDE RECORDS SUMMARY | 2024-08-30 13:11 | XMS_ITS | Encounter Summary ---
Author Organization [facility] Address [address] [place] [address] Care Team Providers Care Director Park Name Role Phone Alisa Kunz DO Primary Care Provider [phone] Kodi Bustos DO Unavailable [phone] Sujit Arriola MD Unavailable [phone] Sujit Reyes MD Unavailable [phone] Zully Caldwell LPN Unavailable Unavailable Reason for Visit * Reason Comments TCM Call Encounter Details Date Type Department Care Team (Late st Contact Info) Description 07/16/2024 Patient Outreach POPULATION HEALTH [address] [facility], [address] [place] [address] Zully Caldwell LPN VALUE-[place]ED [place] [address] TCM Call Social History Tobacco Use Types [...] How often do you attend chur or muslim services? 1 to 4 times [...] Recorded Patient Health Questionnaire-2 Score 0 06/01/2024 [facility] [place] of Occupat ional Health - Occupational Stress [...] any time in the past [address] [facility], were you homeless or living in a [...] drink first t anselmo in the morning (EYE-SIGNS AND DISPLAYS SALES REPRESENTATIVE) to steady your nerves or to get [...] encounter Miscellaneous Notes * Progress Notes - Zully Caldwell LPN - 07/16/2024 11:56 AM EDT Admit Date: 07/12/2024 Discharge Date: 07/15/2024 Hospital Service: Hospital Medicine Discharge Diagnosis: Acute on chronic hypoxic respiratory failure 07/16/2024 TCM call # 1 Patient Reached: N Outcome: Patient not reached, LVM. Action: N/A Medication changes: Per AVS: Start: Furosemide 40mg q day Spironolactone 25mg take 12.5mg q day Change: Duloxetine to 80mg q day Warfarin take 2.5mg on Friday and 5mg all other days Ask: Diclofenac 1% topical gel ELIZABETH appointment: N/A Items to address at ELIZABETH per discharge summary: Post Discharge Instructions Please follow up with your PCP, car construction superintendent, and hydraulic strainer operator. documented in this encounter Plan of Treatment Upcoming Encounters Date Type Department Care Team (Late st Contact Info) Description 09/08/2024 11:20 AM EDT Office Visit [facility] [address] [facility] Internal Medicine [address], [address]rd [place] [address] Alisa Kunz, DO [address] [place] [address] 10/07/2024 4:00 PM EDT Appointment Cardiac Imaging [address] [place] [address] 10/14/2024 4:00 PM EDT Office Visit [facility] Medicine Specialties [address]nd [place] [address] Lavern Shoemaker MD 800 [place], [place] [address] 10/27/2024 1:40 PM EDT Office Visit [facility] Endocrinology [address] [place] [address] Anne-Marie Kolb, INDEPENDENT LIVING INSTRUCTOR [address] [facility] 125 [place] [address] 11/29/2024 10:20 AM EDT Office Visit [facility] [address] Internal Medicine [address], 3rd [place] [address] Alisa Kunz, DO [address] [place] [address] 02/02/2025 10:30 AM EST Office Visit [facility] Medicine Specialties [address] [place] [address] Sadiq Osborne MBBS [address] [place], [place] [address] documented as of this encounter Visit Diagnoses [...] documented as of this encounter Care Teams Director Park Relationship Specialty Start Date End Date Alisa Kunz DO [address] [place] [address] PCP - General Internal Medicine 03/13/21 Kodi Bustos DO [address] [address] Surgeon Cardiothoracic Surgery 11/06/22 Sujit Arriola MD [address] [place] [address] Consulting Physician Pulmonary Disease 11/06/22 Sujit Reyes MD [address] [place] [address] Referring Physician 12/04/22 Zully Caldwell LPN VALUE-[place] [address] TCM Nurse 07/16/24 08/15/24 documented as of this encounter
--- OUTSIDE RECORDS SUMMARY | 2024-08-30 13:11 | XMS_ITS | Encounter Summary ---
Author Organization [facility] Address [address] [place] [address] Care Team Providers Care Lead Die Molder Name Role Phone Alisa Kunz DO Primary Care Provider [phone] Kodi Bustos DO Unavailable [phone] Sujit Arriola MD Unavailable [phone] Sujit Reyes MD Unavailable [phone] Zully Caldwell LPN Unavailable Unavailable Reason for Visit * Reason Comments Follow-up Encounter Details Date Type Department Care Team (Late st Contact Info) Description 07/28/2024 Patient Outreach POPULATION HEALTH [address] [facility] [place] [address] Zully Caldwell LPN VALUE-BASED [place] [address] Follow-up Social History Tobacco Use Types Packs/Day Years [...] How often do you attend chur or congregation services? 1 to 4 times per year 08/30/2022 Do you belong to any clubs o r organizations such as hindu groups, unions, fraternal or athletic groups, or [...] Recorded Patient Health Questionnaire-2 Score 0 07/21/2024 [facility] of Occupat ional Health - Occupational Stress [...] any time in the past 12 m [facility], were you homeless or living [...] drink first t anselmo in the morning (EYE-PAINTER ORDNANCE) to steady your nerves or to get [...] Progress Notes - Zully Caldwell LPN - 07/28/2024 1:39 PM EDT 07/28/2024 TCM Follow-up Call Patient reached: N Outcome: Patient not reached. Patient attended ELIZABETH appointment on 07/20/2024 with Dinah Ramirez APRN. Action: N/A documented in this encounter Plan of Treatment Upcoming Encounters Date Type Department Care Team (Late st Contact Info) Description 09/08/2024 11:20 AM EDT Office Visit [facility] Internal Medicine [address] 3rd [place] [address] Alisa Kunz DO [address] [place] [address] 10/07/2024 4:00 PM EDT Appointment Cardiac Imaging [address] [place] [address] 10/14/2024 4:00 PM EDT Office Visit [facility] Medicine Specialties [address], [address]nd [place] [address] Lavern Shoemaker MD [address] [place], [place] [address] 10/27/2024 1:40 PM EDT Office Visit [facility] Endocrinology [address] [place] [address] Anne-Marie Kolb L, COMPUTER LANGUAGE CODER [address] [place] [address] 11/29/2024 10:20 AM EDT Office Visit [facility] Internal Medicine [address], 3rd [place] [address] Alisa Kunz DO [address] [place] [address] 02/02/2025 10:30 AM EST Office Visit [facility] Medicine Specialties [address] [place] [address] Sadiq Osborne MBBS 800 [place] [address] documented as of this encounter [...] documented as of this encounter Care Teams Lead Die Molder Relationship Specialty Start Date End Date Alisa Kunz DO [address] [place] [address] PCP - General Internal Medicine 03/13/21 Kodi Bustos, [address] [address] Surgeon Cardiothoracic Surgery 11/06/22 Sujit Arriola MD [address] [place] [address] Consulting Physician Pulmonary Disease 11/06/22 Sujit Reyes MD [address] [place] [address] Referring Physician 12/04/22 Zully Caldwell, MARYBETH VALUE-BASED [place] [address] TCM Nurse 07/16/24 08/15/24 documented as of this encounter
--- OUTSIDE RECORDS SUMMARY | 2024-08-30 13:11 | XMS_ITS | Encounter Summary ---
Author Organization [facility] Address [address] [place] [address] Care Team Providers Care Institutional Asset Manager Name Role Phone Alisa Kunz DO Primary Care Provider [phone] Kodi Bustos DO Unavailable [phone] Sujit Arriola MD Unavailable [phone] Sujit Reyes MD Unavailable [phone] Zully Caldwell LPN Unavailable Unavailable Reason for Visit * Reason Onset Date Comments HCN Clinical Concern/Question 07/16/2024 Encounter Details Date Type Department Care Team (Late st Contact Info) Description 07/16/2024 Telephone [facility] Internal Medicine [address], 3rd [place] [address] Alisa Kunz DO [address] [place] [address] HCN Clinical Concern/Question Social History [...] How often do you attend chur or restoration services? 1 to 4 times per year [...] Recorded Patient Health Questionnaire-2 Score 0 06/01/2024 [facility] of Occupat ional Health - Occupational [...] any time in the past 12 m [facility], were you homeless or living in a [...] drink first t anselmo in the morning (EYE-VENEER JOINER) to steady your nerves or to get rid of a hangover? 0 07/12/2024 CAGE Questionnaire Score 0 025 Utilities Answer Date Recorded In the past 12 months has th e [employer], gas, oil, or water [employer] threatened to shut off services in your [...] * Telephone Encounter - Shannen Stephens - 07/16/2024 1:45 PM EDT Called gave vo * Telephone Encounter - Sushila Keller - 07/16/2024 1:08 PM EDT Clinical Concern/Question Reason for Call: calling because patient was recently discharged drom the hospital. Wanting to get verbals if Dr. Kunz would want to follow her home health care. They plan to resume care on Friday07-19-2024. Please call with verbal orders. Thanks! Best contact number: Other: [phone] Optimal time of day to reach caller: [...] 09/08/2024 11:20 AM EDT Office Visit [facility] Internal Medicine [address] 3rd [place] [address] Alisa Kunz, DO [address] [place] [address] 10/07/2024 4:00 PM EDT Appointment Cardiac Imaging [address] [place] [address] 10/14/2024 4:00 PM EDT Office Visit [facility] Medicine Specialties [address], 2nd [place] [address] Lavern Shoemaker MD [address] [place], [place] [id number] 10/27/2024 1:40 PM EDT Office Visit [facility] Endocrinology [address] [place] [address] Anne-Marie Kolb L, TIRE MOLD TESTER [address] [facility] [address] [place] [address] 11/29/2024 10:20 AM EDT Office Visit [facility] Internal Medicine [address] 3rd [place] [address] Alisa Kunz, DO [address] [place] [address] 02/02/2025 10:30 AM EST Office Visit [facility] Medicine Specialties [address] [place] [address] Sadiq Osborne, SHANA [address] [place] [address] documented as of this encounter [...] documented as of this encounter Care Teams Institutional Asset Manager Relationship Specialty Start Date End Date Alisa Kunz DO [address] [place] [address] PCP - General Internal Medicine 03/13/21 Kodi Bustos DO [address] [phone] Surgeon Cardiothoracic Surgery 11/06/22 Sujit Arriola MD [address] [place] [address] Consulting Physician Pulmonary Disease 11/06/22 Sujit Reyes MD [address] [place] [address] Referring Physician 12/04/22 Zully Caldwell LPN VALUE-BASED [place] [address] TCM Nurse 07/16/24 08/15/24 documented as of this encounter
--- OUTSIDE RECORDS SUMMARY | 2024-08-30 13:11 | XMS_ITS | Encounter Summary ---
Author Organization [facility] Address [address] [place] [address] Care Team Providers Care Soda Fountain Clerk Name Role Phone Alisa Kunz DO Primary Care Provider [phone] Kodi Bustos DO Unavailable [phone] Sujit Arriola MD Unavailable [phone] Sujit Reyes MD Unavailable [phone] Zully Caldwell LPN Unavailable Unavailable Reason for Visit * Reason Onset Date Comments Appointment 07/30/2024 Encounter Details Date Type Department Care Team (Late st Contact Info) Description 07/30/2024 [facility]phone [facility]ol[facility] [address], [address] [place] [address] Jarad Tsai Appointment Social History Tobacco Use Types Packs/Day Years [...] How often do you attend chur or judaism services? 1 to 4 times per year [...] Recorded Patient Health Questionnaire-2 Score 0 07/21/2024 [facility]ational [facility] Questionnaire [...] any time in the past 12 [facility], were you [facility] or living in [...] drink first t anselmo in the morning (EYE-HEAD PUMPER) to steady your nerves or to get [...] encounter Miscellaneous Notes * Telephone Encounter - Jarad Tsai - 07/30/2024 1:05 PM EDT Contacted patient about her 4:20pm est appt and asked her if she wanted to come early? Patient stated she would try to get to appt a little early. documented in this encounter Plan of Treatment Upcoming Encounters Date Type Department Care Team (Late st Contact Info) Description 09/08/2024 11:20 AM EDT Office Visit [facility] Internal Medicine [address], [address]rd [place] [address] Alisa Kunz, [address] [place] [address] 10/07/2024 4:00 PM EDT Appointment Cardiac Imaging [address] [place] [address] 10/14/2024 4:00 PM EDT [facility] Medicine Specialties [address], 2nd [place] [address] Lavern Shoemaker MD 800 [place] [address] 10/27/2024 1:40 PM EDT Office Visit [facility] Endocrinology [address] [place] [address] Anne-Marie Kolb, CASKET LINER [address] [place] [address] 11/29/2024 10:20 AM EDT Office Visit [facility] Internal Medicine [address], 3rd [place] [address] Alisa Kunz DO [address] [facility] [address] [place] [address] 02/02/2025 10:30 AM EST Office Visit [facility] Medicine Specialties [address], [address] [place] [address] Sadiq Osborne, SHANA [address] [place] [address] documented as of this encounter [...] documented as of this encounter Care Teams Soda Fountain Clerk Relationship Specialty Start Date End Date Alisa Kunz DO [address] [place] [address] PCP - General Internal Medicine 03/13/21 Kodi Bustos DO [address] [address] Surgeon Cardiothoracic Surgery 11/06/22 Sujit Arriola MD [address] [place] [address] Consulting Physician Pulmonary Disease 11/06/22 Sujit Reyes MD [address] [place] [address] Referring Physician 12/04/22 Zully Caldwell, MARYBETH VALUE-[place] [address] TCM Nurse 07/16/24 08/15/24 documented as of this encounter
--- OUTSIDE RECORDS SUMMARY | 2024-08-30 13:11 | XMS_ITS | Encounter Summary ---
Author Organization [facility] Address [address] [place] [address] Care Team Providers Care Signs And Displays Sales Representative Name Role Phone ZeAlisa willett Torri DO Primary Care Provider [phone] Kodi Bustos DO Unavailable [phone] Sujit Arriola MD Unavailable [phone] Sujit Reyes MD Unavailable [phone] Encounter Details Date Type Department Care Team (Latest Contact Info) Description 07/15/2024 Travel Social History Tobacco Use Types Packs/Day [...] any clubs o r organizations such as sikh groups, unions, fraternal or athletic groups, or [...] Recorded Patient Health Questionnaire-2 Score 0 06/01/2024 [facility] - Occupational Stress Questionnaire Answer [...] any time in the past 12 m [facility], were you homeless or living [...] drink first t anselmo in the morning (EYE-RESERVATION SALES AGENT) to steady your nerves or to [...] Month) No 07/15/2024 8:00 AM EDT Lucia Rosenthal, RN 2. Non-Specific Active Suicidal Thoughts (Past 1 Month) No 07/15/2024 8:00 AM EDT Lucia Rosenthal, RN 6. Suicidal Behavior (Lifetime) No 07/15/2024 8:00 AM EDT Lucia Rosenthal, RN documented as of this encounter Plan of Treatment Upcoming Encounters Date Type Department Care Team (Late st Contact Info) Description 09/08/2024 11:20 AM EDT Office Visit [facility] Internal Medicine [address], [address]rd [place] [address] Alisa Kunz DO [address] [place] [address] 10/07/2024 4:00 PM EDT Appointment Cardiac Imaging [address] [place] [address] 10/14/2024 4:00 PM EDT [facility] Medicine Specialties [address], [address]nd [place] [address] Lavern Shoemaker MD [address] [place] [id number] 10/27/2024 1:40 PM EDT Office Visit [facility] Endocrinology [address] [place] [address] Anne-Marie Kolb, SUPERINTENDENT [address] [place] [address] 11/29/2024 10:20 AM EDT Office Visit [facility] Internal Medicine [address], 3rd [place] [address] Alisa Kunz DO [address] [place] [address] 02/02/2025 10:30 AM EST [facility] Medicine Specialties [address], 2[address] [place] [address] Sadiq Osborne, SHANA [address] [place] [address] documented as of this encounter [...] documented as of this encounter Care Teams Signs And Displays Sales Representative Relationship Specialty Start Date End Date Alisa Kunz DO [address] [place] [address] PCP - General Internal Medicine 03/13/21 Kodi Bustos, [address] [address] Surgeon Cardiothoracic Surgery 11/06/22 Sujit Arriola MD [address] [place] [address] Consulting Physician Pulmonary Disease 11/06/22 Sujit Reyes MD [address] [place] [address] Referring Physician 12/04/22 documented as of this encounter
--- OUTSIDE RECORDS SUMMARY | 2024-08-30 13:11 | XMS_ITS | Encounter Summary ---
Author Organization [facility] Address [address] [place] [address] Care Team Providers Care Survey Researcher Name Role Phone Alisa Kunz DO Primary Care Provider Kodi Bustos DO Unavailable [phone] Sujti Arriola MD Unavailable [phone] Sujit Reyes MD Unavailable [phone] Zully Caldwell LPN Unavailable Unavailable Encounter Details Date Type Department Care Team (Latest Contact Info) Description 07/19/2024 Travel Social History Tobacco Use Types Packs/Day [...] often do you attend chur ch or hinduism services? 1 to 4 times [...] Patient Health Questionnaire-2 Score 0 06/01/2024 [facility] of Occupat ional Health - Occupational [...] place to sleep or slept in a penitentiary (including now)? No 12/30/2023 PHQ-9 Answer Date [...] were you homeless or living in a penitentiary (including now)? No 05/27/2024 CAGE ASSESSMENT Answer [...] drink first t anselmo in the morning (EYE-CAPACITOR ASSEMBLER) to steady your nerves or to get [...] Description 09/08/2024 11:20 AM EDT Office Visit [facility] Internal Medicine [address], 3rd [place] [address] Alisa Kunz, DO [address] [facility] [address] [place] [address] 10/07/2024 4:00 PM EDT Appointment Cardiac Imaging [address] [place] [address] 10/14/2024 4:00 PM EDT [facility] Medicine Specialties [address], [address]nd [place] [address] Lavern Shoemaker MD 800 [place] [address] 10/27/2024 1:40 PM EDT Office Visit [facility] Endocrinology [address] [place] [address] Anne-Marie Kolb L, SHOT PEEN OPERATOR [address] [facility] [address] [place] [address] 11/29/2024 10:20 AM EDT Office Visit [facility] Internal Medicine [address], 3rd [place] [address] Alisa Kunz DO [address] [place] [address] 02/02/2025 10:30 AM EST [facility] Medicine Specialties [address], [address] [place] [address] Sadiq Osborne, MBBS [address] [place], [place] [address] documented as of this encounter Visit Diagnoses [...] documented as of this encounter Care Teams Survey Researcher Relationship Specialty Start Date End Date Alisa Kunz DO [address] [place] [address] PCP - General Internal Medicine 03/13/21 Kodi Bustos DO [address] [place] [address] Surgeon Cardiothoracic Surgery 11/06/22 Sujit Arriola MD [address] [place] [address] Consulting Physician Pulmonary Disease 11/06/22 Sujit Reyes MD [address] [place] [address] Referring Physician 12/04/22 Zully Caldwell, RESTAURANT LINE COOK VALUE-[place] [address] TCM Nurse 07/16/24 08/15/24 documented as of this encounter
--- OUTSIDE RECORDS SUMMARY | 2024-08-30 13:11 | XMS_ITS | Encounter Summary ---
Author Organization [facility] Address [address] [place] [address] Care Team Providers Care Financial Institution Vice President Name Role Phone Alisa Kunz DO Primary Care Provider [phone] Kodi Bustos DO Unavailable [phone] Sujit Arriola MD Unavailable [phone] Sujit Reyes MD Unavailable [phone] Zully Caldwell LPN Unavailable Unavailable Encounter Details Date Type Department Care Team (Latest Contact Info) Description 07/21/2024 Travel Social History Tobacco Use Types Packs/Day [...] often do you attend chur ch or methodist services? 1 to 4 times [...] Recorded Patient Health Questionnaire-2 Score 0 07/21/2024 [facility] [...] time in the past 12 m [facility], were you homeless or living in a skilled nursing (including now)? No 05/27/2024 CAGE ASSESSMENT Answer [...] drink first t anselmo in the morning (EYE-FIRE CONTROL SYSTEM INSTALLER) to steady your nerves or to [...] at all 07/21/2024 9:23 AM Catalino Hendrickson n R Thoughts that you would be better off or hurting yourself in some way Not at all 07/21/2024 9:23 AM JANET Loreta Pedro in R Patient Health Questionnaire-9 Score 8 07/21/2024 9:23 AM JANET Makeda Pedro R * If you checked off any problems on this questionnaire so far, Question Answer Date of Assessment Author How difficult have these problems made it for you to do your work, take care of things at home, or get along with other people? Not difficult at all 07/21/2024 9:23 AM Loreta Hendrickson in R documented as of this encounter Plan of Treatment Upcoming Encounters Date Type Department Care Team (Late st Contact Info) Description 09/08/2024 11:20 AM EDT Office Visit [facility] Internal Medicine [address] 3rd [place] [address] Alisa Kunz, [address] [place] [address] 10/07/2024 4:00 PM EDT Appointment Cardiac Imaging [address] [place] [address] 10/14/2024 4:00 PM EDT Office Visit [facility] Medicine Specialties [address], [address]nd [place] [address] Lavern Shoemaker MD 800 [place] [address] 10/27/2024 1:40 PM EDT [facility] [address] [place] [address] Anne-Marie Kolb L, REFRIGERATION INSULATOR [address] [facility] [address] [place] [address] 11/29/2024 10:20 AM EDT Office Visit [facility] Internal Medicine [address], 3rd [place] [address] Alisa Kunz DO [address] [place] [address] 02/02/2025 10:30 AM EST Office Visit [facility] Medicine Specialties [address], [address] [place] [address] Sadiq Osborne, SHANA [address] [place] [address] documented as of this encounter [...] documented as of this encounter Care Teams Financial Institution Vice President Relationship Specialty Start Date End Date Alisa Kunz DO [address] [place] [address] PCP - General Internal Medicine 03/13/21 Kodi Bustos DO [address] [address] Surgeon Cardiothoracic Surgery 11/06/22 Sujit Arriola MD [address] [place] [address] Consulting Physician Pulmonary Disease 11/06/22 Sujit Reyes MD [address] [place] [address] Referring Physician 12/04/22 Black RockZully taylor LPN VALUE-[place]ED [place] [address] TCM Nurse 07/16/24 08/15/24 documented as of this encounter
--- OUTSIDE RECORDS SUMMARY | 2024-08-30 13:11 | XMS_ITS | Encounter Summary ---
Author Organization [facility] Address [address] [place] [address] Care Team Providers Care Land Clearer Name Role Phone Alisa Kunz DO Primary Care Provider [phone] Kodi Bustos DO Unavailable [phone] Sujit Arriola MD Unavailable [phone] Sujit Reyes MD Unavailable [phone] Zully Caldwell LPN Unavailable Unavailable Reason for Visit * Reason Comments TCM Call Encounter Details Date Type Department Care Team (Late st Contact Info) Description 07/19/2024 Patient Outreach POPULATION HEALTH [address] [facility], [address] [place] [address] Zully Caldwell LPN VALUE-BASED [place] [address] TCM Call Social History Tobacco Use Types [...] Recorded Patient Health Questionnaire-2 Score 0 06/01/2024 [facility] [place] of Occupat ional Health - Occupational Stress [...] place to sleep or slept in a half-way (including now)? No 12/30/2023 PHQ-9 Answer Date [...] time in the past 12 m [facility], were you homeless or living in a half-way (including now)? No 05/27/2024 CAGE ASSESSMENT Answer [...] drink first t anselmo in the morning (EYE-RAPID EXTRACTOR OPERATOR) to steady your nerves or to [...] Progress Notes - Zully Caldwell LPN - 07/19/2024 1:11 PM EDT Admit Date: 07/12/2024 Discharge Date: 07/15/2024 Hospital Service: Hospital Medicine Discharge Diagnosis: Acute on chronic hypoxic respiratory failure 07/19/2024 TCM call # 2 Patient Reached: Y Outcome: Patient reached. [facility] Patient endorsed dizziness with ambulation but denied N/V, diarrhea, fever, chills, SOA, cough, CP, palpitations or swelling. Reports he BS was 155 this afternoon. Patient declined medication review and Sdoh assessment or review of upcoming appointments in [facility] at time of nurse call stating the nurse was at her home at time of nurse call and they would review them during nurse visit. Patient reports she will have transportation to her ELIZABETH appointment. Patient did not have any other questions, concerns or complaints at time of nurse call. Action: Advised patient to take all meds in original containers to ELIZABETH appointment for review. Patient verbalized understanding. Medication changes: Per AVS: Start: Furosemide 40mg q day Spironolactone 25mg take 12.5mg q day Change: Duloxetine to 80mg q day Warfarin take 2.5mg on Friday and 5mg all other days Ask: Diclofenac 1% topical gel ELIZABETH appointment: 07/20/2024 at 9:40am with Dinah Ashley MVA OPERATOR Items to address at ELIZABETH per discharge summary: Post Discharge Instructions Please follow up with your PCP, meatcutter, and bus boy. documented in this encounter Plan of Treatment Upcoming Encounters Date Type Department Care Team (Late st Contact Info) Description 09/08/2024 11:20 AM EDT Office Visit [facility] Internal Medicine [address]rd [place] [address] Alisa Kunz, DO [address] [place] [address] 10/07/2024 4:00 PM EDT Appointment Cardiac Imaging [address] [place] [address] 10/14/2024 4:00 PM EDT Office Visit [facility] Medicine Specialties [address], [address]nd [place] [address] Lavern Shoemaker MD 800 [place] [address] 10/27/2024 1:40 PM EDT Office Visit [facility] Endocrinology [address] [place] [address] Anne-Marie Kolb, MVA OPERATOR [address] [facility] [address] [place] [address] 11/29/2024 10:20 AM EDT Office Visit [facility] Internal Medicine [address], [address]rd [place] [address] Alisa Kunz, DO [address] [place] [address] 02/02/2025 10:30 AM EST Office Visit [facility] Medicine Specialties [address], [address] [place] [address] Sadiq Osborne, SHANA [address] [place] [address] documented as of this encounter [...] documented as of this encounter Care Teams Land Clearer Relationship Specialty Start Date End Date Alisa Kunz DO [address] [place] [address] PCP - General Internal Medicine 03/13/21 Kodi Bustos DO [address] [phone] Surgeon Cardiothoracic Surgery 11/06/22 Sujit Arriola MD [address] [place] [address] Consulting Physician Pulmonary Disease 11/06/22 Sujit Reyes MD [address] [place] [address] Referring Physician 12/04/22 Zully Caldwell LPN VALUE-BASED [place] [address] TCM Nurse 07/16/24 08/15/24 documented as of this encounter
--- OUTSIDE RECORDS SUMMARY | 2024-08-30 13:11 | XMS_ITS | Encounter Summary ---
Author Organization [facility] Address [address] [place] [address] Care Team Providers Care General Surgeon Name Role Phone Alisa Kunz DO Primary Care Provider Kodi Bustos DO Unavailable [phone] Sujit Arriola MD Unavailable [phone] Sujit Reyes MD Unavailable [phone] Zully Caldwell LPN Unavailable Unavailable Ekaterina Gómez Unavailable Unavailable Reason for Visit * Reason Onset Date Comments HCN Clinical Concern/Question 07/23/2024 Encounter Details Date Type Department Care Team (Late st Contact Info) Description 07/23/2024 Telephone [facility] Internal Medicine [address] [place] [address] Alisa Kunz DO [address] [place] [address] HCN Clinical Concern/Question Social History [...] often do you attend chur ch or anglican services? 1 to 4 times per year 08/30/2022 Do you belong to any clubs o r organizations such as muslim groups, unions, fraternal or athletic groups, or [...] Recorded Patient Health Questionnaire-2 Score 0 08/04/2024 [facility] - [...] drink first t anselmo in the morning (EYE-BILLING CONTROL CLERK) to steady your nerves or to get rid of a hangover? 0 08/14/2024 CAGE Questionnaire Score 0 025 Utilities Answer Date Recorded In the past 12 months has [employer], gas, oil, or water [employer] threatened to shut off services in your [...] things Not at all 08/04/2024 10:41 AM EDT Melany Ragland Feeling down, depressed, or hopeless Not at all 08/04/2024 10:41 AM JANET Melany Ragland Patient Health Questionnaire -2 Score 0 08/04/2024 10:41 AM EDT Melany Ragland * Question Answer Date of Assessment Author Trouble falling or staying asleep, or sleeping too much Not at all 08/04/2024 10:41 AM EDT Ellyn , Clarisa Poor appetite or overeating Not at all 08/04/2024 10 :41 AM EDT Clarisa Ragland Feeling bad about yourself - [...] usual. Not at all 08/04/2024 10:41 AM EDT Melany Ragland Thoughts that you would be better off or hurting yourself in some way Not at all 08/04/2024 10:41 AM EDT Liu Ragland * Calculated C-SSRS Risk Score (Lifetime/Recent) Answer Date of Assessment Author No Risk Indicated 08/22/2024 8:00 AM EDT Kosta Dugan RN * If you checked off any problems on this questionnaire so far, Question Answer Date of Assessment Author How difficult have these problems made it for you to do your work, take care of things at home, or get along with other people? Not difficult at all 08/04/2024 10:41 AM JANET Liu Ragland * Question Answer Date of Assessment Author 1. Wish to be (Past 1 Month) No 025 8:00 AM EDT Kosta Dugan RN 2. Non-Specific Active Suici dillon Thoughts (Past 1 Month) No 08/22/2024 8:00 AM EDT Autumn Dugan RN 6. Suicidal Behavior (Lifetime) No 8:00 AM EDT Kosta Dugan RN documented as of this encounter Miscellaneous Notes * Telephone Encounter - Floresita Berg - 07/23/2024 3:42 PM EDT Spoke with patient and advised that pulmonology is handling that and she would need to contact them. * Telephone Encounter - Floresita Berg - 07/23/2024 11:20 AM EDT V/O given for PT once a week x 4 weeks. * Telephone Encounter - Edgar Patel - 07/23/2024 11:13 AM EDT Clinical Concern/Question Reason for Call: Requesting verbal orders for PT, once a week for four weeks, please contact for more information. Best contact number: Other: [phone] Optimal time of day to reach caller: ANYTIME Additional comments/information from caller: None Note: Please do not reply to this message. Follow-up communication and further actions as a result of this message need to be communicated with the patient directly, if the patient is not active onMyChart. If the patient is active on MyChart, they will receive notification of the communication/outcome via Reasulth[employer]. documented in this encounter Plan of Treatment Upcoming Encounters Date Type Department Care Team (Late st Contact Info) Description 09/08/2024 11:20 AM EDT Office Visit [facility] Internal Medicine [address] [place] [address] Alisa Kunz, DO [address] [place] [address] 10/07/2024 4:00 PM EDT Appointment Cardiac Imaging [address] [place] [address] 10/14/2024 4:00 PM EDT Office Visit [facility] [address] [place] [address] Lavern Shoemaker MD [address] [place] [address] 10/27/2024 1:40 PM EDT Office Visit [facility] Endocrinology [address] [place] [address] Anne-Marie Kolb, DIGESTER COOK [address] [place] [address] 11/29/2024 10:20 AM EDT Office Visit [facility] Internal Medicine [address] [place] [address] Alisa Kunz DO [address] [place] [address] 02/02/2025 10:30 AM EST [facility] [address] [place] [address] Sadiq Osborne, SHANA [address] [place] [address] documented as of this encounter [...] documented as of this encounter Care Teams General Surgeon Relationship Specialty Start Date End Date Alisa Kunz DO [address] [place] [address] PCP - General Internal Medicine 03/13/21 Kodi Bustos DO [address] [address] Surgeon Cardiothoracic Surgery 11/06/22 Sujit Arriola MD [address] [place] [address] Consulting Physician Pulmonary Disease 11/06/22 Sujit Reyes MD [address] [place] [address] Referring Physician 12/04/22 Zully Caldwell, MARYBETH VALUE-[place] [address] TCM Nurse 07/16/24 08/15/24 Ekaterina Gómez Technical Sales Support Specialist Adult Care Provider 08/16/24 08/16/24 documented as of this encounter
--- OUTSIDE RECORDS SUMMARY | 2024-08-30 13:11 | XMS_ITS | Encounter Summary ---
Author Organization [facility] Address [address] [place] [address] Care Team Providers Care Hot Pipe Gauger Name Role Phone Alisa Kunz DO Primary Care Provider Kodi Bustos DO Unavailable [phone] Sujit Arriola MD Unavailable [phone] Sujit Reyes MD Unavailable [phone] Zully Caldwell LPN Unavailable Unavailable Reason for Visit * Reason Onset Date Comments HCN Clinical Concern/Question 07/19/2024 Encounter Details Date Type Department Care Team (Late st Contact Info) Description 07/19/2024 Telephone [facility] Internal Medicine [address]rd [place] [address] Alisa Kunz DO [address] [place] [address] HCN Clinical Concern/Question Social History [...] How often do you attend chur or confucianist services? 1 to 4 times per year [...] Recorded Patient Health Questionnaire-2 Score 0 06/01/2024 [facility] Occupat ional Health - Occupational [...] place to sleep or slept in a usp (including now)? No 12/30/2023 PHQ-9 Answer Date [...] any time in the past 12 m [facility], were you homeless or living in a usp (including now)? No 05/27/2024 CAGE ASSESSMENT Answer [...] drink first t anselmo in the morning (EYE-GEOLOGICAL SPECIALIST) to steady your nerves or to get rid of a hangover? 0 07/12/2024 CAGE Questionnaire Score 0 025 Utilities Answer Date Recorded In the past 12 months has th e [employer], gas, oil, or water [employer] threatened to shut off services in your [...] Telephone Encounter - Shannen Stephens - 07/19/2024 3:58 PM EDT noted * Telephone Encounter - Alisa Kunz DO - 07/19/2024 3:25 PM EDT That's much better: hold spironolactone for now. * Telephone Encounter - Sofia Hernadez - 07/19/2024 3:09 PM EDT Clinical Concern/Question Reason for Call: pt has called to give Shannen her latest bp readin/75, pulse 71. thx Best contact number: [phone] (home) Optimal time of day to reach [...] Description 09/08/2024 11:20 AM EDT Office Visit [facility] Internal Medicine [address] [place] [address] Alisa Kunz, DO [address] [facility] [address] [place] [address] 10/07/2024 4:00 PM EDT Appointment Cardiac Imaging [address] [place] [address] 10/14/2024 4:00 PM EDT Office Visit [facility] Medicine [facility] [address]nd [place] [address] Lavern Shoemaker MD [address] [place] [address] 10/27/2024 1:40 PM EDT Office Visit [facility] Endocrinology [address] [place] [address] Anne-Marie Kolb L, EMERGENCY CREW SUPERVISOR 2[address] [facility] 125 [place] [address] 11/29/2024 10:20 AM EDT Office Visit [facility] Internal Medicine [address]rd [place] [address] Alisa Kunz, DO [address] [place] [address] 02/02/2025 10:30 AM EST Office Visit [place] [facility] [address] [place] [address] Sadiq Osborne, SHANA [address] [place] [address] documented as of this encounter [...] documented as of this encounter Care Teams Hot Pipe Gauger Relationship Specialty Start Date End Date Alisa Kunz DO [address] [place] [address] PCP - General Internal Medicine 03/13/21 Kodi Bustos DO [address] [address] Surgeon Cardiothoracic Surgery 11/06/22 Sujit Arriola MD [address] [place] [address] Consulting Physician Pulmonary Disease 11/06/22 Sujit Reyes MD [address] [place] [address] Referring Physician 12/04/22 Zully Caldwell LPN VALUE-[place]ED [place] [address] TCM Nurse 07/16/24 08/15/24 documented as of this encounter
--- OUTSIDE RECORDS SUMMARY | 2024-08-30 13:11 | XMS_ITS | Encounter Summary ---
Author Organization [facility] Address [address] [place] [address] Care Team Providers Care Bagger And Stock Handler Helper Name Role Phone Alisa Kunz DO Primary Care Provider [phone] Kodi Bustos DO Unavailable [phone] Sujit Arriola MD Unavailable [phone] Sujit Reyes MD Unavailable [phone] Zully Caldwell LPN Unavailable Unavailable Encounter Details Date Type Department Care Team (Latest Contact Info) Description 07/20/2024 Travel Social History Tobacco Use Types Packs/Day [...] often do you attend chur ch or holiness services? 1 to 4 times [...] Recorded Patient Health Questionnaire-2 Score 0 07/21/2024 [facility] Occupat ional Health - Occupational [...] any time in the past 12 m [facility], were you homeless or [...] drink first t anselmo in the morning (EYE-VENDER) to steady your nerves or to get [...] [facility] Internal Medicine [address], [address]rd [place] [address] Alisa Kunz, DO [address] [facility] [address] [place] [address] 10/07/2024 4:00 PM EDT Appointment Cardiac Imaging [address] [place] [address] 10/14/2024 4:00 PM EDT Office [facility] [place] [facility] [address] [place] [address] Lavern Shoemaker MD [address] [place] [address] 10/27/2024 1:40 PM EDT Office Visit [facility] Endocrinology [address] [place] [address] Anne-Marie Kolb L, HEALTH INFORMATION MANAGEMENT DIRECTOR [address] [facility] 125 [place] [address] 11/29/2024 10:20 AM EDT Office Visit [facility] Internal Medicine [address] [place] [address] Alisa Kunz DO [address] [place] [address] 02/02/2025 10:30 AM EST [facility] [address] [place] [address] Sadiq Osborne, LARISSABS [address] [place], [place] [id number] documented as of this encounter Visit Diagnoses [...] documented as of this encounter Care Teams Bagger And Stock Handler Helper Relationship Specialty Start Date End Date Alisa Kunz DO [address] [place] [address] PCP - General Internal Medicine 03/13/21 Kodi Bustos DO [address] [place] [address] Surgeon Cardiothoracic Surgery 11/06/22 Sujit Arriola MD [address] [place] [address] Consulting Physician Pulmonary Disease 11/06/22 Sujit Reyes MD [address] [place] [address] Referring Physician 12/04/22 Zully Caldwell, DIAGRAM CLERK VALUE-[place]ED [place] [address] TCM Nurse 07/16/24 08/15/24 documented as of this encounter
--- OUTSIDE RECORDS SUMMARY | 2024-08-30 13:11 | XMS_ITS ---
Author Organization [facility] Address [address] [place] [address] Care Team Providers Care Sonographer Name Role Phone ZeAlisa willett Torri SOLIS Primary Care Provider [phone] Kodi Bustos DO Unavailable [phone] Sujit Arriola MD Unavailable [phone] Sujit Reyes MD Unavailable [phone] Patricia Yañez LPN Unavailable [facility] Status:Closed (Closed) Start date:04/02/2024 Enrollment date:04/02/2024 Enrollment reason:Referred by provider End date:07/01/2024 Close reason:Patient graduated Continued Care and Services Coordination
--- OUTSIDE RECORDS SUMMARY | 2024-08-30 13:12 | XMS_ITS | Encounter Summary ---
Author Organization [facility] Address [address] [place] [address] Care Team Providers Care Bi Specialist Name Role Phone Alisa Kunz DO Primary Care Provider Kodi Bustos DO Unavailable [phone] Sujit Arriola MD Unavailable [phone] Sujit Reyes MD Unavailable [phone] Zully Caldwell LPN Unavailable Unavailable Reason for Visit * Reason Onset Date Comments HCN Clinical Concern/Question 08/06/2024 Encounter Details Date Type Department Care Team (Late st Contact Info) Description 08/06/2024 Telephone [facility] Internal Medicine [address] [place] [address] Alisa Kunz DO [address] [place] [address] HCN Clinical Concern/Question Social History [...] How often do you attend chur or druze services? 1 to 4 times per year 08/30/2022 Do you belong to any clubs o r organizations such as uatsdin groups, unions, fraternal or athletic groups, or [...] drink first t anselmo in the morning (EYE-COOK CHILI) to steady your nerves or to get rid of a hangover? 0 07/12/2024 CAGE Questionnaire Score 0 025 Utilities Answer Date Recorded In the past 12 months has th e [employer], gas, oil, or water [employer] threatened to shut off services in your [...] encounter Miscellaneous Notes * Telephone Encounter - Julius Be - 08/06/2024 9:59 AM EDT Paperwork/Documentation Request Patient Name: Michelle Felipe Type: [facility] calling to let MD know that the patient is having difficulty getting her O2 portable concentrator through DME ( [employer])/ the company says the wrong chart notes were sent and they were not signed by the physician / chart notes have to be current/ The testing needs to be from a inspector sheet metal parts if MD cannot do the testing Due Date: 08/07/2024 Send To: [employer] Best contact number: [phone] [employer] REP for DME Optimal time of day to reach caller: ANYTIME Additional comments/information from caller: None Note: Please do not reply to this message. Follow-up communication and further actions as a result of this message need to be communicated with the patient directly, if the patient is not active onMyChart. If the patient is active on MyChart, they will receive notification of the communication/outcome via [employer]. documented in this encounter Plan of Treatment Upcoming Encounters Date Type Department Care Team (Late st Contact Info) Description 09/08/2024 11:20 AM EDT Office Visit [facility] Internal Medicine [address] [place] [address] Alisa Kunz, DO [address] [facility] [address] [place] [address] 10/07/2024 4:00 PM EDT Appointment Cardiac Imaging [address] [place] [address] 10/14/2024 4:00 PM EDT Office Visit [facility] Medicine Specialties [address] [address] Lavern Shoemaker MD [address] [place], [place] [address] 10/27/2024 1:40 PM EDT Office Visit [facility] Endocrinology [address] [place] [address] Anne-Marie Kolb L, AIRCRAFT COMMUNICATOR [address] [facility] 125 [place] [address] 11/29/2024 10:20 AM EDT Office Visit [facility] Internal Medicine [address] [place] [address] Alisa Kunz, DO [address] [facility] [address] [place] [address] 02/02/2025 10:30 AM EST Office Visit [facility] Medicine Specialties [address] [place] [address] Sadiq Osborne, MBBS [address] [place], [place] [address] documented as of this encounter Visit Diagnoses [...] documented as of this encounter Care Teams Bi Specialist Relationship Specialty Start Date End Date Alisa Kunz DO [address] [place] [address] PCP - General Internal Medicine 03/13/21 Kodi Bustos DO [address] [address] Surgeon Cardiothoracic Surgery 11/06/22 Sujit Arriola MD [address] [place] [address] Consulting Physician Pulmonary Disease 11/06/22 Sujit Reyes MD [address] [place] [address] Referring Physician 12/04/22 Zully Caldwell LPN VALUE-[place]ED [place] [address] TCM Nurse 07/16/24 08/15/24 documented as of this encounter
--- OUTSIDE RECORDS SUMMARY | 2024-08-30 13:12 | XMS_ITS | Encounter Summary ---
Author Organization [facility] Address [address] [place] [address] Care Team Providers Care Traffic Investigator Name Role Phone Alisa Kunz DO Primary Care Provider Kodi Bustos DO Unavailable [phone] Sujit Arriola MD Unavailable Sujit Reyes MD Unavailable [phone] Tanya Powell Unavailable [phone] Sarah Reyes LPN Unavailable Unavailable Reason for Visit * Reason Onset Date Comments HCN Clinical Concern/Question 06/03/2024 Encounter Details Date Type Department Care Team (Late st Contact Info) Description 06/03/2024 Telephone [facility] Internal Medicine [address] [place] [address] Alisa Kunz DO [address] [place] [address] HCN Clinical Concern/Question Social History [...] week 08/30/2022 How often do you attend [facility] or baptism services? 1 to 4 times [...] Score 0 06/01/2024 [facility] - Occupational Stress Questionnaire Answer Date Recorded [...] 0 06/01/2024 Housing Stability Vital Sign Answer Hogn e Recorded In the last 12 months, was t here a time when you were not able to pay the mortgage or rent on time? No 05/27/2024 In the past 12 months, how m any times have you moved where you were living? 0 05/27/2024 At any time in the past 12 m [facility], were you homeless or living in a [facility] (including now)? No 05/27/2024 CAGE ASSESSMENT Answer [...] drink first t anselmo in the morning (EYE-DIRECTOR OF GRADUATE ADMISSIONS) to steady your nerves or to get [...] Month) No 025 1:18 PM EDT Zina Godron RN 2. Non-Specific Active Suici dillon Thoughts (Past 1 Month) No 06/29/2024 1:18 PM EDT Shana Gordon RN 6. Suicidal Behavior (Lifetime) No 5 1:18 PM EDT Zina Gordon RN documented as of this encounter Miscellaneous Notes * Telephone Encounter - Sofia Hernadez - 06/03/2024 12:53 PM EDT Clinical Concern/Question Reason for Call: pt asks if the referral for home health that was ordered on 06.01 be faxed to [facility]. Please call pt for any questions. Best contact number: [phone] (home) Optimal time of day to reach [...] Description 09/08/2024 11:20 AM EDT Office Visit [facility] Internal Medicine [address] [place] [address] Alisa Kunz, DO [address] [facility] 304 [place] [address] 10/07/2024 4:00 PM EDT Appointment Cardiac Imaging [address] [place] [address] 10/14/2024 4:00 PM EDT Office Visit [facility] [address] [place] [address] Lavern Shoemaker MD [address] [place] [address] 10/27/2024 1:40 PM EDT Office Visit [facility] Endocrinology [address] [place] [address] Anne-Marie Kolb L, PUTTY PATCHER [address] [place] [address] 11/29/2024 10:20 AM EDT Office Visit [facility] Internal Medicine [address] [place] [address] Alisa Kunz, DO [address] [place] [address] 02/02/2025 10:30 AM EST [facility] [address] [place] [address] Sadiq Osborne, MBBS [address] [place] [address] documented as of this encounter Visit Diagnoses Not on filedocumented in this encounter Additional Health Concerns Infection Onset Date Last Indicated Resolved Time Influenza 05/25/2024 05/25/2024 06/22/2024 9:54 PM EDT COVID-19 Rule-Out 06/29/2024 06/29/2024 06/29/2024 1:39 PM EDT Respiratory Rule-Out 06/29/2024 06/29/2024 025 6:32 PM EDT Assessment Noted Time PHQ-9 Depression Total Score: 0 06/02/19 1:21 PM EDT A fall risk assessment has been complete d for the patient 06/01/2024 1:21 PM EDT A Body Mass Index follow-up plan has been documented for the patient 06/01/2024 2:16 PM EDT documented as of this encounter Care Teams Traffic Investigator Relationship Specialty Start Date End Date Alisa Kunz DO [address] [facility] [address] [place] [address] PCP - General Internal Medicine 03/13/21 Kodi Bustos DO [address] [address] Surgeon Cardiothoracic Surgery 11/06/22 Sujit Arriola MD [address] [place] [address] Consulting Physician Pulmonary Disease 11/06/22 Sujit Reyes MD [address] [place] [address] Referring Physician 12/04/22 Tanya Powell [address] [facility] [address] [place] [address] Registered Nurse 04/02/24 07/01/24 Sarah Reyes LPN TCM Nurse 05/27/24 06/26/24 documented as of this encounter
--- OUTSIDE RECORDS SUMMARY | 2024-08-30 13:12 | XMS_ITS | Data Portability ---
Author Organization [facility] - Edgar montgomery MD, Main Office Address [address], [address] [place] [address] Care Team Providers Care Executive Chairman Of The Board Name Role Phone BRUCE BOYER Primary Care Provider Assessment No assessment recorded. Plan of Treatment Reminders Order Date Submit Date Provider Last Modified By Organization Details Last Modified Time Details Appointments None recorded. Lab None recorded. Referral physical therapist referral 2021 022 NICK Not available 10:40:50 Procedures None recorded. Surgeries None recorded. Imaging None recorded. Medication Orders None recorded. Patient TargetsNo targets recorded. Patient Instructions Encounter Date Encounter Id Patient Instructions Last Modified By Organization Details Last Modified Time 08/21/2021 [id number] Finding has been discussed with the patient in detail. Outpatient physical therapy referral for strengthening of her lower extremities. I anticipate that she should be able to walk in the next few months. Return as needed. Not available 08/21/2021 08:50:00 01/10/2022 [id number] Finding has been discussed with the patient in detail. She was given a order for new walker. Return as needed. Not available 01/10/2022 14:57:34 Reason for Referral Physical Therapist Referral for Paresis of lower extremity Referring Physician: Edgar Irwin, Neurology, Encounter Date: 08/21/2021 Procedures Surgical History Date Name Laterality Status Provider Name and Address Organization Details Recorded Time Cataract Surgery completed Jo-Ann Irwin MD 08/21/2021 08:16:52 section completed Jo-Ann Irwin MD 08/21/2021 08:17:05 Back Surgery completed Jo-Ann Irwin MD 08/21/2021 08:17:15 Carpal tunnel surgery completed West Irwin MD 08/21/2021 08:17:28 procedure on elbow completed Ge Irwin MD 08/21/2021 08:17:44 cardiac catheterization completed Jo-Ann Irwin MD 08/21/2021 08:18:03 cardiac revascularization with bypass anastomosis completed Jo-Ann Irwin MD 08/21/2021 08:18:13 repair of ankle completed Jo-Ann Irwin MD 08/21/2021 08:18:29 procedure on retina completed Braydon Irwin MD 08/21/2021 08:18:56 vitrectomy completed Jo-Ann Irwin MD 08/21/2021 08:19:18 cardiac pacemaker procedure completed Jo-Ann Irwin MD 08/21/2021 08:19:31 neurostimulation of spinal cord tissue completed Jo-Ann Irwin MD 08/21/2021 08:20:09 Imaging Results None recorded. Procedure Notes None recorded. Medical Equipment None Reported. Allergies No known drug allergies Medications Name Sig Start Date Stop Date Status Note LastModified by Organization Details LastModified Time latanoprost 0.005 % eye drops INSTILL 1 DROP INTO AFFECTED EYE(S) ONCE DAILY IN THE EVENING 08/21 completed Not Available Not Available Not Available methocarbam ol 500 mg tablet 08/21 completed Not Available Not Available Not Available buspirone 5 mg tablet TAKE 1 TABLET BY MOUTH TWICE DAILY active Not Available Not Available No t Available neomycin-po lymyxin-hyd rocort 3.5 mg/mL-10,00 0 unit/mL-1 % ear solution active Not Available Not Available Not Available nystatin 100,000 unit/mL oral suspension active Not Available Not Available N ot Available albuterol sulfate 2.5 mg/3 mL (0.083 %) solution for nebulizatio n USE 1 VIAL IN NEBULIZER EVERY 4 HOURS IF NEEDED FOR WHEEZING OR SHORTNESS OF BREATH OR COUGH, CHEST CONGESTIO N OR CHEST TIGHTNESS 08/21 completed Not Available Not Available Not Available trazodone 50 mg tablet TAKE 1 TABLET BY MOUTH ONCE DAILY AT NIGHT active Not Available Not Available No t Available cephalexin 250 mg capsule TAKE 1 CAPSULE BY MOUTH 4 TIMES DAILY TO START AFTER YOUR PROCEDURE FOR 5 DAYS 08/21 completed Not Available Not Available Not Available fluocinonid e 0.05 % topical gel APPLY TO ULCER 8-10 TIMES A DAY UNTIL PAIN IS GONE 08/21 completed Not Available Not Available Not Available Synthroid 125 mcg tablet active Not Available Not Available Not Available prednisone 20 mg tablet TAKE 2 TABLETS BY MOUTH ONCE DAILY FOR 5 DAYS 08/21 completed Not Available Not Available Not Available amlodipine 2.5 mg tablet active Not Available Not Available Not Available clopidogrel 75 mg tablet 08/21 completed Not Available Not Available Not Available amlodipine 5 mg tablet 01/10 completed Not Available Not Available Not Available oxycodone-a cetaminophe n 5 mg-325 mg tablet TAKE 1 TABLET BY MOUTH EVERY 4 HOURS NEEDED FOR PAIN 08/21 completed Not Available Not Available Not Available triamcinolo ne acetonide 0.1 % dental paste USE IN THE MOUTH OR THROAT 2 TIMES DAILY DIRECTED active Not Available Not Available No t Available linezolid 600 mg tablet 08/21 completed Not Available Not Available Not Available trazodone 100 mg tablet TAKE 1 TABLET BY MOUTH ONCE DAILY AT NIGHT active Not Available Not Available No t Available baclofen 10 mg tablet TAKE 1 TABLET BY MOUTH EVERY 12 HOURS NEEDED FOR MUSCLE SPASM active Not Available Not Available No t Available gabapentin 300 mg capsule TAKE 2 CAPSULES BY MOUTH ONCE DAILY AT NIGHT active Not Available Not Available No t Available folic acid 1 mg tablet TAKE 3 TABLETS BY MOUTH ONCE DAILY active Not Available Not Available No t Available montelukast 10 mg tablet TAKE 1 TABLET BY MOUTH ONCE DAILY AT NIGHT 08/21 completed Not Available Not Available Not Available furosemide 20 mg tablet TAKE 1 TABLET BY MOUTH ONCE DAILY active Not Available Not Available No t Available metoprolol succinate ER 25 mg tablet,exte nded release 24 hr active Not Available Not Available Not Available estradiol 0.01% (0.1 mg/gram) vaginal cream 08/21 completed Not Available Not Available Not Available ketoconazol e 2 % topical cream APPLY CREAM TOPICALLY TWICE DAILY TO RASH IN SKIN FOLDS NEEDED FOR FLARES active Not Available Not Available No t Available lisinopril 40 mg tablet active Not Available Not Available Not Available ondansetron 4 mg disintegrat ing tablet DISSOLVE 1 TABLET IN MOUTH EVERY 8 HOURS NEEDED FOR NAUSEA 08/21 completed Not Available Not Available Not Available azithromyci n 500 mg tablet TAKE 1 TABLET BY MOUTH ONCE DAILY FOR 3 DAYS 08/21 completed Not Available Not Available Not Available ezetimibe 10 mg tablet active Not Available Not Available Not Available Spiriva with HandiHaler 18 mcg and inhalation capsules 08/21 completed Not Available Not Available Not Available duloxetine 20 mg capsule,del ayed release active Not Available Not Available Not Available duloxetine 60 mg capsule,del ayed release 01/10 completed Not Available Not Available Not Available ProAir HFA 90 mcg/actuati on aerosol inhaler 08/21 completed Not Available Not Available Not Available Symbicort 160 mcg-4.5 mcg/actuati on HFA aerosol inhaler active Not Available Not Available Not Available Humalog KwikPen (U-100) Insulin 100 unit/mL subcutaneou s active Not Available Not Available Not Available diclofenac 1 % topical gel APPLY 1 GRAM OVER LATERAL KNEE/LOWE R LEG TWICE DAILY DIRECTED 08/21 completed Not Available Not Available Not Available levothyroxi ne 125 mcg capsule Take 1 capsule every day by oral route. active Not Available Not Available No t Available Livalo 4 mg tablet active Not Available Not Available Not Available Suprep Bowel Prep Kit 17.5 gram-3.13 gram-1.6 gram oral solution TAKE DIRECTED 08/21 completed Not Available Not Available Not Available OneTouch Verio test strips USE 1 STRIP TO CHECK GLUCOSE THREE TIMES DAILY 01/10 completed Not Available Not Available Not Available Eliquis 5 mg tablet active Not Available Not Available No t Available Waldemar Rodriguez U-300 Insulin 300 unit/mL (1.5 mL) subcutaneou s pen active Not Available Not Available Not Available Trelegy Ellipta 200 mcg-62.5 mcg-25 mcg powder for inhalation active Not Available Not Available N ot Available Vitals Date Recorded Body height Body mass index (BMI) Body weight Heart rate Respiratory rate Systolic blood pressure Diastolic blood pressure Provider Name and Address Organization Details Last Updated DateTime 2 162.56 cm 25.7 kg/m2 01175.8 6 g 79 /min 17 /min 127 mm[Hg] 76 mm[Hg] Edgar Irwin MD [address], [address] [address] [facility] MD 2 08:45:55 Date Recorded Body mass index (BMI) Body weight Heart rate Respiratory rate Systolic blood pressure Diastolic blood pressure Provider Name and Address Organization Details Last Updated DateTime 2 25.9 kg/m2 47830.4 5 g 80 /min 16 /min 132 mm[Hg] 77 mm[Hg] Edgar Irwin MD [address], [address] [address] [facility] MD 2 14:54:47 Date Recorded Body height Provider Name an d Address Organization Details Last Updated DateTime 01/10/2022 162.56 cm Jo-Ann Irwin MD 01/10/2022 11:08:24 Social History Question Answer Notes LastModified by Organizat ion Details LastModified Time Tobacco Smoking Status Never Smoker [facility] Espinoza MD 08/21/2021 08:13:53 Do You Have An Advance Directive? Yes Information n ot available 08/21/2021 In The 14 Days Before Symptom Onset, Have You Had Close Contact With A Laboratory-confirm ed COVID-19 While That Case Was Ill? No Information n ot available 08/21/2021 In The 14 Days Before Symptom Onset, Have You Had Close Contact With A Person Who Is Under Investigation For COVID-19 While That Person Was Ill? No Information not available 08/21/2021 Have You Been To An Area Known To Be High Risk For COVID-19? No Information not available 08/21/2021 What Was The Date Of Your Most Recent Tobacco Screening? 01/10/2022 Information not available 01/10/2022 Sex: Unknown Functional Status Question Answer Note LastModified by Organizat ion Details LastModified Time What is your level of alcohol consumption? Occasional Information not available 08/21/2021 Are you able to walk? YESASSIST Information not available 01/10/2022 Mental Status None recorded. Family History Relationship Description Onset Age of this Age Resolved Age Notes LastModified by Organization Details LastModified Time Father Alcoholism Not availabl e 08/21/2021 08:13:19 Mother Heart disease Not available 2021 08:13:27 Mother Hypertensive disorder Not available 2021 08:13:34 Medical History Condition Response Depression Y Anxiety Disorder Y Arthritis Y Stroke Y Diabetes Y Hyperlipidemia Y Heart Disease Y Hypertension Y Gynecological HistoryNo gynecological history recorded. Obstetrics History GPAL:G 0 P 0 0 0 0 Past Encounters Encounter ID Performer Location Encounter Start Date Encounter Closed Date Diagnosis/Indication Diagnosis SNOMED-CT Code Diagnosis ICD10 Code Diagnosis Note [id number] Edgar Irwin MD Main Office [address], [facility] [address] [place] [address] 08/21/2021 07:51:12 08/21/2021 08:32:10 Paresis of lower extremity 095394919 G83.10 The patient is a 71-year-ol d white female. 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 [id number] Edgar Irwin MD Main Office [address], [facility] [address] [place] [address] 01/10/2022 10:56:27 01/10/2022 11:33:09 Impairment of balance 252001232 R26.89 The patient is a 71-year-ol d white female. She had a history of epidural hematoma with weakness in both legs. She has made progress. She is now walking with a walker. Health Concerns Section Related Observation LastModified by Organization Detai ls LastModified Time None Recorded Concern Status LastModified by Organization Details LastModified Time None Recorded Advance Directives Directive Y: Payers Insurance Date Sequence Insurance Name Policy Number Policy Byrne Covered Member ID Byrne Member ID Guarantor Name 01/08/2022 1 [facility] (MEDICARE REPLACEMENT/A DVANTAGE - PPO) [id number] Michelle Felipe [id number] Michelle Felipe Notes Date Note Type Note Provider Name a az Address Organization Details Recorded Time 08/21/2021 text/html Mrs. Felipe is a 71-year-old retired white female. 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 She had a stimulator implant on June 13, [address] Ortiz for neuropathic pain. She developed epidural hematoma that was evacuated a few days later. She had remote surgical weakness. She is currently getting home health therapy. She has numbness in the left thigh and left groin. The left leg is weaker than the right. She is currently in a wheelchair. Her neuropathic pain has been much improved. She is taking gabapentin 600 mg at bedtime. She is on Eliquis and she has a pacemaker for atrial fibrillation. She also has a right ankle cellulitis this being treated with antibiotics. Hemoglobin A1c is 7.4. She also has a history of consumption of alcohol. MD [address], [place] [address], [place], [address], [facility] Esthela Irwin MD 08/21/2021 08:50:30 01/10/2022 text/html Mrs. Felipe is a 71-year-old white female. She had a epidural hematoma in the lumbar area with the spinal cord stimulator implant. She had weakness in both legs. She was in a wheelchair in August. She returned today for follow-up. She had physical therapy. She is able to ambulate with a walker. She has a diabetic neuropathy. She also takes Eliquis for atrial fibrillation. Edgar Irwin MD [address], [facility] [address], [place], [address], [facility] Esthela Irwin MD 01/10/2022 14:58:00 OBGyn Episode No OBEpisode recorded.
--- OUTSIDE RECORDS SUMMARY | 2024-08-30 13:12 | XMS_ITS | Referral Summary ---
Author Organization [employer] Address [address] [place] [address] Care Team Providers Care Personal Computer Specialist Name Role Phone Unavailable Primary Care Provider Unavailabl e Social History Tobacco Use Types Packs/Day Years Used Date Smoking Tobacco: Never Assessed Comments Unknown Sex and Gender Information Value Date Recorded Sex Assigned at Female 09/04/2021 10:41 AM CDT Legal Sex Female 10:41 AM CDT Gender Identity Female 09/04/2021 10:41 AM CDT Sexual Orientation Not on file Plan of Treatment Not on file
--- OUTSIDE RECORDS SUMMARY | 2024-08-30 13:12 | XMS_ITS | Encounter Summary ---
Author Organization [facility] Address [address] [place] [address] Care Team Providers Care Adult Secondary Education Instructor Name Role Phone Alisa Kunz DO Primary Care Provider Kodi Bustos DO Unavailable [phone] Sujit Arriola MD Unavailable Sujit Reyes MD Unavailable [phone] Tanya Powell Unavailable [phone] Sarah Reyes SHAKE OUT WORKER Unavailable Unavailable Ekaterina Gómez Unavailable Unavailable Zully Caldwell SHAKE OUT WORKER Unavailable Unavailable Encounter Details Date Type Department Care Team (Late st Contact Info) Description 05/28/2024 Results Follow-[facility] Medicine Specialties [address] [place] [address] Lavern Shoemaker MD [address] [place] [address] Social History Tobacco Use Types Packs/Day Years [...] How often do you attend chur or sabianism services? 1 to 4 times [...] Recorded Patient Health Questionnaire-2 Score 0 07/21/2024 [facility] - Occupational [...] any time in the past 12 m [facility] [place], were you homeless or living in a [...] drink first t anselmo in the morning (EYE-COILED TUBING SUPERVISOR) to steady your nerves or to get rid of a hangover? 0 07/12/2024 CAGE Questionnaire Score 0 025 Utilities Answer Date Recorded In the past 12 months has e [employer], gas, oil, or water [employer] threatened to shut off services in your [...] or overeating Several days 07/21/2024 9:23 AM JANET Catalino Pedro Feeling bad about yourself - or that [...] Pedroza RN documented as of this encounter Plan of Treatment Upcoming Encounters Date Type Department Care Team (Late st Contact Info) Description 09/08/2024 11:20 AM EDT Office Visit [facility] Internal Medicine [address] [place] [address] Alisa Kunz, [address] [place] [address] 10/07/2024 4:00 PM EDT Appointment Cardiac Imaging [address] [place] [address] 10/14/2024 4:00 PM EDT Office Visit [facility] Medicine Specialties [address] [place] [address] Lavern Shoemaker MD [address] [place], [place] [id number] 10/27/2024 1:40 PM EDT Office Visit Janette Suazo [facility] Endocrinology [address] [place] [address] Anne-Marie Kolb, FELTMAKER AND WEIGHER [address] [place] [address] 11/29/2024 10:20 AM EDT Office Visit [facility] Internal Medicine [address] [place] [address] Alisa Kunz L, DO [address] [place] [address] 02/02/2025 10:30 AM EST Office Visit [facility] Medicine Specialties [address] [place] [address] Sadiq Osborne MBBS [address] [place] [address] documented as of this encounter Visit Diagnoses Not on filedocumented in this encounter Additional Health Concerns Infection Onset Date Last Indicated Resolved Time Influenza 05/25/2024 05/25/2024 06/22/2024 9:54 PM EDT COVID-19 Rule-Out 06/29/2024 06/29/2024 06/29/2024 1:39 PM EDT Respiratory Rule-Out 06/29/2024 06/29/20242 025 6:32 PM EDT Assessment Noted Time PHQ-9 Depression Total Score: 8 05/28/19 25 4:13 PM EDT A fall risk assessment has been complete d for the patient 05/27/2024 4:13 PM EDT A Body Mass Index follow-up plan has been documented for the patient 05/28/2024 12:02 PM EDT documented as of this encounter Care Teams Adult Secondary Education Instructor Relationship Specialty Start Date End Date Alisa Kunz DO [address] [place] [address] PCP - General Internal Medicine 03/13/21 Kodi Bustos DO [address] [address] Surgeon Cardiothoracic Surgery 11/06/22 Sujit Arriola MD [address] [place] [address] Consulting Physician Pulmonary Disease 11/06/22 Sujit Reyes MD [address] [place] [address] Referring Physician 12/04/22 Tanya Powell [address] [facility] [address] [place] [address] Registered Nurse 04/02/24 07/01/24 Sarah Reyes LPN TCM Nurse 05/27/24 06/26/24 Ekaterina Gómez Air Pollution Auditor Movement Therapist 07/14/24 07/14/24 Zully Caldwell LPN VALUE-[employer]ED [place] [address] TCM Nurse 07/16/24 08/15/24 documented as of this encounter
--- OUTSIDE RECORDS SUMMARY | 2024-08-30 13:12 | XMS_ITS | Encounter Summary ---
Author Organization [facility] Address [address] [place] [address] Care Team Providers Care Remotely Piloted Vehicle Controller Name Role Phone Alisa Kunz DO Primary Care Provider [phone] Kodi Bustos DO Unavailable [phone] Sujit Arriola MD Unavailable [phone] Sujit Reyes MD Unavailable [phone] Zully Caldwell LPN Unavailable Unavailable Encounter Details Date Type Department Care Team (Latest Contact Info) Description 08/04/2024 Travel Social History Tobacco Use Types Packs/Day [...] often do you attend chur ch or orthodox services? 1 to 4 times per [...] Recorded Patient Health Questionnaire-2 Score 0 08/04/2024 [facility] - [...] drink first t anselmo in the morning (EYE-FIBERGLASS AUTOBODY REPAIRER) to steady your nerves or to get rid of a hangover? 0 07/12/2024 CAGE Questionnaire Score 0 025 Utilities Answer Date Recorded In the past 12 months has brenda e electric, gas, oil, or water company [...] things Not at all 08/04/2024 10:41 AM Melany Jimenez Feeling down, depressed, or hopeless Not at all 08/04/2024 10:41 AM Melany Jimenez Patient Health Questionnaire -2 Score 0 08/04/2024 10:41 AM Melany Jimenez * Question Answer Date of Assessment Author Trouble falling or staying asleep, or sleeping too much Not at all 08/04/2024 10:41 AM Clarisa Jimenez Poor appetite or overeating Not at all 08/04/2024 10 :41 AM Clarisa Jimenez Feeling bad about yourself - or that you are a failure or have let yourself or your family down Not at all 08/04/2024 10:41 AM JANET Clarisa Diamond Moving or speaking so slowly [...] Liu Ragland documented as of this encounter Plan of Treatment Upcoming Encounters Date Type Department Care Team (Late st Contact Info) Description 09/08/2024 11:20 AM EDT Office Visit [facility] Internal Medicine [address] [place] [phone] Alisa Kunz, DO [address] [place] [address] 10/07/2024 4:00 PM EDT Appointment Cardiac Imaging [address] [place] [address] 10/14/2024 4:00 PM EDT Office Visit [facility] Medicine Specialties [address] [place] [address] Lavern Shoemaker MD [address] [phone] 10/27/2024 1:40 PM EDT Office Visit Huongnhfeng Suazo [facility] Endocrinology [address] [place] [address] Anne-Marie Kolb L, CHEMICAL RECOVERY OPERATOR [address] [facility] [address] [place] [address] 11/29/2024 10:20 AM EDT Office Visit [facility] Internal Medicine [address] [place] [address] Alisa Kunz, DO [address] [facility] [address] [place] [address] 02/02/2025 10:30 AM EST Office Visit [facility] Medicine Specialties [address] [place] [address] DylonSadiq vivas MBBS [address] [place], [place] [id number] documented as of this encounter Visit Diagnoses [...] documented as of this encounter Care Teams Remotely Piloted Vehicle Controller Relationship Specialty Start Date End Date Alisa Kunz DO [address] [place] [address] PCP - General Internal Medicine 03/13/21 Kodi Bustos DO [address] [phone] Surgeon Cardiothoracic Surgery 11/06/22 Sujit Arriola MD [address] [place] [address] Consulting Physician Pulmonary Disease 11/06/22 Sujit Reyes MD [address] [place] [address] Referring Physician 12/04/22 Zully Caldwell, MARYBETH VALUE-[place]ED [place] [address] TCM Nurse 07/16/24 08/15/24 documented as of this encounter
--- OUTSIDE RECORDS SUMMARY | 2024-08-30 13:12 | XMS_ITS | Encounter Summary ---
Author Organization [facility] Address [address] [place] [address] Care Team Providers Care Survey Technician Name Role Phone Jackson Malave MD Primary Care Provider [phone] Alisa Kunz DO Primary Care Provider [phone] Anu Sen RN Unavailable [phone] HatLaura navas SENIOR ECONOMIST Unavailable Unavailable Balwinder Vale Unavailable Unavailable Kodi Bustos DO Unavailable [phone] Sujit Arriola MD Unavailable [phone] HatLaura navas LPN Unavailable Unavailable Sujit Reyes MD Unavailable [phone] Zully Caldwell LPN Unavailable Unavailable HatLaura navas LPN Unavailable Unavailable HatLaura navas LPN Unavailable Unavailable Tanya Powell Unavailable [phone] Sarah Reyes SENIOR ECONOMIST Unavailable Unavailable Ekaterina Gómez Unavailable Unavailable Zully Caldwell LPN Unavailable Unavailable Ekaterina Gómez Unavailable Unavailable Patricia Yañez SENIOR ECONOMIST Unavailable Unavailab le Reason for Visit * Reason Comments Med Refill Encounter Details Date Type Department Care Team (Late st Contact Info) Description 02/12/2021 Refill [facility] Internal Medicine [address] [place] [address] Jackson Malave MD [address] [place] [address] Social History Tobacco Use Types Packs/Day Years Used Date Smoking Tobacco: Never Smokeless Tobacco: Never Alcohol Use Standard Drinks/Week Comments Yes 0 (1 standard drink = 0.6 oz pur e alcohol) 3-4 beers a day AUDIT-C Answer Date Recorded Q1: How often [...] Date Recorded Patient Health Questionnaire-2 Score 0 12/19/2020 Comments Unknown Sex and Gender Information Value Date Recorded Sex Assigned at Female 11/01/2020 9:33 PM EDT Legal Sex Female 8:14 PM EDT Gender Identity Female 11/01/2020 9:33 PM EDT Sexual Orientation Straight 11/01/2020 9: 33 PM EDT COVID-19 Exposure Response Date Recorded In the last month, have you been in contact with someone who was confirmed or suspected to have Coronavirus / COVID-19? No / Unsure 02/15/2021 10:35 AM EST documented as of this encounter Plan of Treatment Upcoming Encounters Date Type Department Care Team (Late st Contact Info) Description 09/08/2024 11:20 AM EDT Office Visit [facility] Internal Medicine [address] [place] [address] Alisa Kunz DO [address] [place] [address] 10/07/2024 4:00 PM EDT Appointment Cardiac Imaging [address] [place] [address] 10/14/2024 4:00 PM EDT Office Visit [facility] Medicine Specialties [address], [address] [place] [address] Lavern Shoemaker MD [address] [place] [address] 10/27/2024 1:40 PM EDT Office Visit [facility] Endocrinology [address] [place] [address] Anne-Marie Kolb L, INSTRUCTOR APPAREL MANUFACTURE [address] [place] [address] 11/29/2024 10:20 AM EDT Office Visit [facility] Internal Medicine [address] [place] [address] Alisa Kunz, DO [address] [place] [address] 02/02/2025 10:30 AM EST Office Visit [facility] Medicine Specialties [address], [address] [place] [address] Sadiq Osborne MBBS [address] [place], [place] [phone] documented as of this encounter Visit Diagnoses Not on filedocumented in this encounter Additional Health Concerns Infection Onset Date Last Indicated Resolved Time COVID-19 Rule-Out 02/15/2021 02/15/2021 02/15/2021 9:50 PM EST COVID-19 Rule-Out 11/12/2022 11/12/2022 11/13/2022 2:25 AM EDT Respiratory Rule-Out 11/12/2022 11/13/2022 023 3:08 AM EDT Gastrointestinal Rule-Out 11/12/2022 11/13/2022 10:11 AM EDT C. difficile Rule-Out 11/12/2022 11/13/20222022 10:11 AM EDT COVID-19 Rule-Out 01/27/2023 01/27/202301/2701/27/2023 6:16 PM EST Respiratory Rule-Out 01/27/2023 01/27/2023 [...] has been complete d for the patient 12/19/2020 12:46 PM EDT documented as of this encounter Care Teams Survey Technician Relationship Specialty Start Date End Date Jackson Malave MD [address] [place], [place] [id number] PCP - General 07/21/20 03/12/21 Alisa Kunz, DO [address] [place] [address] PCP - General Internal Medicine 03/13/21 Anu Sen, RN VALUE-BASED TRANSFORMATION PROGRAM [place] Registered Nurse Internal Medicine 08/22/21 09/24/21 Laura Albright SENIOR ECONOMIST [employer] [address] TCM Nurse 08/30/22 09/27/22 Balwinder Vale [address] [place] [address] Community Health Worker It Director 08/30/22 09/06/22 Kodi Bustos, DO [address] [phone] Surgeon Cardiothoracic Surgery 11/06/22 Sujit Arriola MD [address] [place] [address] Consulting Physician Pulmonary Disease 11/06/22 Laura Albright LPN [employer] [place] [address] TCM Nurse 12/02/22 01/01/23 Sujit Reyes MD [address] [place] [address] Referring Physician 12/04/22 Zully Caldwell LPN [employer] [place] [address] TCM Nurse 02/03/23 03/05/23 Laura Albright LPN [employer] [place] [address] TCM Nurse 08/05/23 09/04/23 Laura Albright LPN [employer] [address] TCM Nurse 02/17/24 03/18/24 Tanya Powell [address] [facility] [address] [place] [address] Registered Nurse 04/02/24 07/01/24 Sarah Reyes LPN TCM Nurse 05/27/24 06/26/24 Ekaterina Gómez Oil Burner Servicer And Installer It Director 07/14/24 07/14/24 Zully Caldwell LPN [employer] [place] [address] TCM Nurse 07/16/24 08/15/24 Ekaterina Gómez Oil Burner Servicer And Installer It Director 08/16/24 08/16/24 Patricia Yañez LPN TCM Nurse 08/25/24 documented as of this encounter
--- OUTSIDE RECORDS SUMMARY | 2024-08-30 13:12 | XMS_ITS | Encounter Summary ---
Author Organization [facility] Address [address] [place] [address] Care Team Providers Care Seamark Advanced Operator Maintainer Name Role Phone Alisa Kunz DO Primary Care Provider Laura Albright DYER AND WASHER Unavailable Unavailable Balwinder Vale Unavailable Unavailable Kodi Bustos DO Unavailable [phone] Sujit Arriola MD Unavailable HatLaura navas DYER AND WASHER Unavailable Unavailable Sujit Reyes MD Unavailable [phone] Zully Caldwell DYER AND WASHER Unavailable Unavailable HatfulLaura howard DYER AND WASHER Unavailable Unavailable HatfulLaura howard DYER AND WASHER Unavailable Unavailable Tanya Powell Unavailable [phone] Sarah Reyes DYER AND WASHER Unavailable Unavailable Ekaterina Gómez Unavailable Unavailable Zully Caldwell DYER AND WASHER Unavailable Unavailable Ekaterina Gómez Unavailable Unavailable Patricia Yañez DYER AND WASHER Unavailable Unavailab le Reason for Visit * Reason Comments Med Refill Encounter Details Date Type Department Care Team (Late st Contact Info) Description 12/10/2021 Refill [facility] Internal Medicine [address] [place] [address] Alisa Kunz DO [address] [place] [address] Social History Tobacco Use Types Packs/Day Years Used Date Smoking Tobacco: Never Smokeless Tobacco: Never Alcohol Use Standard Drinks/Week Comments Yes 7 (1 standard drink = 0.6 oz pur [...] Date Recorded Patient Health Questionnaire-2 Score 0 05/01/2021 Comments No Sex and Gender Information Value Date Recorded Sex Assigned at Female 11/01/2020 9:33 PM EDT Legal Sex Female 8:14 PM EDT Gender Identity Female 11/01/2020 9:33 PM EDT Sexual Orientation Straight 11/01/2020 9: 33 PM EDT documented as of this encounter Miscellaneous Notes * Telephone Encounter - Alisa Kunz DO - 12/11/2021 4:58 PM EDT PDMP reviewed and appropriate. Refilled. documented in this encounter Plan of Treatment Upcoming Encounters Date Type Department Care Team (Late st Contact Info) Description 09/08/2024 11:20 AM EDT Office Visit [facility] Internal Medicine [address] [place] [address] Alisa Kunz DO [address] [place] [address] 10/07/2024 4:00 PM EDT Appointment Cardiac Imaging [address] [place] [address] 10/14/2024 4:00 PM EDT Office Visit [facility] Medicine Specialties [address] [place] [address] Lavern Shoemaker MD [address] [place] [address] 10/27/2024 1:40 PM EDT Office Visit [facility] Endocrinology [address] [place] [address] Anne-Marie Kolb, AGRICULTURAL EXTENSION OFFICER [address] [place] [address] 11/29/2024 10:20 AM EDT Office Visit [facility] Internal Medicine [address] [place] [address] Alisa Kunz, DO [address] [place] [address] 02/02/2025 10:30 AM EST Office Visit [facility] Medicine Specialties [address] [place] [address] Sadiq Osborne MBBS [address] [place] [address] documented as of this encounter Visit Diagnoses [...] has been complete d for the patient 10/29/2021 9:29 AM EDT documented as of this encounter Care Teams Seamark Advanced Operator Maintainer Relationship Specialty Start Date End Date Alisa Kunz DO [address] [place] [address] PCP - General Internal Medicine 03/13/21 Laura Albright LPN [employer] [place] [address] TCM Nurse 08/30/22 09/27/22 Balwinder Vale [address] [address] Community Health Worker Electric Distribution Engineer 08/30/22 09/06/22 Kodi Bustos DO [address] [address] Surgeon Cardiothoracic Surgery 11/06/22 Sujit Arriola MD [address] [place] [address] Consulting Physician Pulmonary Disease 11/06/22 Laura Albright LPN VAL[employer] [place] [address] TCM Nurse 12/02/22 01/01/23 Sujit Reyes MD [address] [place] [address] Referring Physician 12/04/22 Zully Caldwell LPN [employer] [place] [address] TCM Nurse 02/03/23 03/05/23 Laura Albright LPN [employer] [place] [address] TCM Nurse 08/05/23 09/04/23 Laura Albright LPN [employer] [address] TCM Nurse 02/17/24 03/18/24 Tanya Powell [address] [facility] [address] [place] [address] Registered Nurse 04/02/24 07/01/24 Sarah Reyes LPN TCM Nurse 05/27/24 06/26/24 Ekaterina Gómez Combination Technician Electric Distribution Engineer 07/14/24 07/14/24 Zully Caldwell LPN [employer] [place] [address] TCM Nurse 07/16/24 08/15/24 Ekaterina Gómez Combination Technician Electric Distribution Engineer 08/16/24 08/16/24 Patricia Yañez LPN TCM Nurse 08/25/24 documented as of this encounter
--- OUTSIDE RECORDS SUMMARY | 2024-08-30 13:12 | XMS_ITS | Encounter Summary ---
Author Organization [facility] Address [address] [place] [address] Care Team Providers Care Services Account Manager Name Role Phone Alisa Kunz DO Primary Care Provider [phone] Kodi Bustos DO Unavailable [phone] uSjit Arriola MD Unavailable Sujit Reyes MD Unavailable [phone] Tanya Powell Unavailable [phone] Sarah Reyes SHEEP HERDER Unavailable Unavailable Ekaterina Gómez Unavailable Unavailable Zully Caldwell SHEEP HERDER Unavailable Unavailable Encounter Details Date Type Department Care Team (Late st Contact Info) Description 05/28/2024 Results Follow-[facility] Medicine Specialties [address] [place] [address] Lavern Shoemaker MD [address] [place] [address] Social History Tobacco Use Types [...] How often do you attend chur or mosque services? 1 to 4 times per year 08/30/2022 Do you belong to any clubs o r organizations such as mormon groups, unions, fraternal or athletic groups, or [...] drink first t anselmo in the morning (EYE-SKIDDER OPERATOR) to steady your nerves or to get rid of a hangover? 0 07/12/2024 CAGE Questionnaire Score 0 025 Utilities Answer Date Recorded In the past 12 months has e [employer], gas, oil, or water [employer] threatened to shut off services in your [...] 09/08/2024 11:20 AM EDT Office Visit [facility] Internal Medicine [address]rd [place] [address] Alisa Kunz, [address] [place] [address] 10/07/2024 4:00 PM EDT Appointment Cardiac Imaging [address] [place] [address] 10/14/2024 4:00 PM EDT Office Visit [facility] Medicine Specialties [address] [place] [address] Lavern Shoemaker MD [address] [place], [place] [phone] 10/27/2024 1:40 PM EDT Office Visit [facility] Endocrinology [address] [place] [address] Anne-Marie Kolb, INTEGRATED MARKETING MANAGER [address] [place] [address] 11/29/2024 10:20 AM EDT Office Visit [facility] Internal Medicine [address] [place] [address] Alisa Kunz L, DO [address] [place] [address] 02/02/2025 10:30 AM EST Office Visit [facility] Medicine Specialties [address] [place] [address] Sadiq Osbrone MBBS [address] [place] [address] documented as of this encounter Visit Diagnoses [...] documented as of this encounter Care Teams Services Account Manager Relationship Specialty Start Date End Date Alisa Kunz DO [address] [place] [address] PCP - General Internal Medicine 03/13/21 Kodi Bustos DO [address] [address] Surgeon Cardiothoracic Surgery 11/06/22 Sujit Arriola MD [address] [place] [address] Consulting Physician Pulmonary Disease 11/06/22 Sujit Reyes MD [address] [place] [address] Referring Physician 12/04/22 Tanya Powell [address] [facility] [address] [place] [address] Registered Nurse 04/02/24 07/01/24 Sarah Reyes LPN TCM Nurse 05/27/24 06/26/24 Ekaterina Gómez Superintendent Drivers Guest Service Agent 07/14/24 07/14/24 Zully Caldwell LPN VALUE[employer] [place] [address] TCM Nurse 07/16/24 08/15/24 documented as of this encounter
--- OUTSIDE RECORDS SUMMARY | 2024-08-30 13:12 | XMS_ITS | Encounter Summary ---
Author Organization [facility] Address [address] [place] [address] Care Team Providers Care Retina Subspecialist Name Role Phone Unavailable Primary Care Provider Unavailabl e Encounter Details Date Type Department Care Team (Late st Contact Info) Description 08/21/2021 Transcribed Document [facility] [facility] [place] [address] ProviderNessa MD [address] [place] [address] Social History Tobacco Use Types Packs/Day Years Used Date Smoking Tobacco: Never Assessed Comments Unknown Sex and Gender Information Value Date Recorded Sex Assigned at Female 09/04/2021 10:41 AM CDT Legal Sex Female 10:41 AM CDT Gender Identity Female 09/04/2021 10:41 AM CDT Sexual Orientation Not on file documented as of this encounter Miscellaneous Notes * Cerner Conversion Note - Historical ProviderMD - 08/21/2021 4:49 PM CDT Patient: MICHELLE TORRES Age: 71 Years Sex: Female : 1950 Neuropsychological screening evaluation History of presenting problem: Michelle Torres, a 71-year-old female, was referred for a neuropsychological screening evaluation by Alisa Kunz DO. to document the extent of any presenting neurocognitive deficits and to assist with treatment planning. Her medical history is significant for memory loss, fibromyalgia, type I diabetes (i.e. diagnosed at age 11 years), neuropathy, obstructive sleep apnea, coronary artery disease, atrial fibrillation, atherosclerotic heart disease, hypertension, chronic kidney disease, osteoarthritis, chronic pain syndrome, depression, and CVA syndrome (June,). On June 13, 2021, Ms. Torres underwent a spinal cord stimulator implant procedure. Approximately five days later, she complained of malaise and developed abdominal swelling. She went to the ER and was diagnosed with a kidney infection. Subsequently, she developed acute onset of generalized weakness in her legs, bilaterally. She commented, ???I went back to the ER. They told me I had nerve damage in both of my legs. I developed a hematoma in my back. I did what they told me to do with the Eliquis. The doctor thinks that could have been the cause. They removed the SCS on the following Friday.?? She reported she has been in a wheelchair since June, due to weakness in her legs. Ms. Torres reported a history of chronic long-term memory loss, along with mild short-term memory loss, difficulty concentrating at times and word-finding difficulty over the past year. She described longstanding anxiety and depression since her thirties. She denied difficulty initiating or maintaining sleep. She is not compliant with CPAP therapy. Psychosocial: Ms. Torres was not aware of any complications during her mother???s . She was not born prematurely. She met all developmental milestones on time. She denied difficulty learning in school, or problems with inattention or hyperactivity during childhood. She denied a history of adverse childhood experiences. Ms. Torres obtained a Rank I in Education from the [employer]. 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 She is with two daughters. Ms. Torres does not currently participate in outpatient counseling. She previously attended outpatient counseling at [facility]. She is prescribed psychopharmacological therapy by Evelio Long M.D. at [facility]. She denied current suicidal ideation, plan or intent. She denied prior suicidal attempts. She endorsed a history of passive suicidal ideation during her thirties and forties, although she denied having a specific plan or intent at that time. She reported two prior inpatient psychiatric admissions during her thirties or forties at the [facility] in [place] [i.e. she believes it was the [place] [facility]], for depression with suicidal ideation. Ms. Torres denied a history of substance or tobacco abuse. Her current medications include Amlodipine, Eliquis, Aspirin, Vitamin B Complex, Buspirone, Calcium Carbonate, Duloxetine, Estradiol, Ezetimibe, Trelegy Ellipta, Folic Acid, Furosemide, Gabapentin, Insulin, Latanoprost, Levothyroxine, Lisinopril, Methocarbamol, Metoprolol, multi-vitamin, Pitavastatin, Trazodone and Zinc Gluconate. Behavioral Observations: Ms. Torres was cooperative during the evaluation. Her affect was context appropriate. She was attentive and participative during the assessment. Her speech was of normal rate, volume and articulation. Judgment and insight were good. She had no problems understanding test instructions. Rapport was established. Tests administered: Steve 15 Item Memory Test (Recall and Recognition Trials) Repeatable battery for the assessment of neuropsychological status-update (RBANS-U) Patient health questionnaire-9 (PHQ-9) Generalized anxiety disorder questionnaire-7 (RIKKI-7) Assessment results: Cognitive effort: Results on the Steve 15 Item Memory test revealed adequate cognitive effort. Neurocognitive functioning: Ms. Torres obtained an average score on a measure of verbal immediate memory (66th percentile), which indicates adequate verbal learning and encoding. Delayed memory functions are high average (75th percentile). Verbal delayed memory is high average to superior, whereas visual delayed memory is average. Verbal recognition is average. Expressive language is borderline impaired (i.e. word retrieval). Visual attention, scanning and processing speed is extremely low. Ms. Torres???s visual perception is borderline impaired. Visuoconstructional abilities are average. Emotional Functioning: On a screening measure for depression (PHQ-9), Ms. Torres denied feeling down, depressed or hopeless, or a loss of interest or pleasure in activities she used to enjoy during the past 2 weeks. She reported fatigue several days during the past 2 weeks (04/05). She denied suicidal ideation, plan or intent during the past 2 weeks, or thoughts she would be better off . On a screening measure for anxiety (RIKKI-7), Ms. Torres obtained a score consistent with minimal anxiety during the past 2 weeks (05/28). She reported worrying too much about different things, trouble relaxing and being fearful something awful may happen several days during the past 2 weeks. Summary: Ms. Torres was referred for a neurocognitive evaluation to document the extent and severity of any cognitive dysfunction to aid in diagnosis and treatment planning. She provided adequate cognitive effort during the evaluation; thus, test results are valid and interpretable. In regard to the RBANS, Ms. Torres???s subtests revealed slowed processing speed, with borderline impaired visual perception and word retrieval. Overall learning and memory are average to high average, respectively. Visuoconstructive ability is intact. Ms. Torres reported minimal anxiety during the past 2 weeks. She denied symptoms consistent with depression. Impression: Neurocognitive testing revealed fine motor speed slowing with borderline impaired visual perception and word retrieval. Learning and memory functions are average to high average, respectively. I suspect her cognitive weaknesses are multi-factorial and attributable to prior CVA syndrome in 2018, non-compliance associated with CPAP therapy, chronic pain, and intermittent depression and anxiety. Neurocognitive testing is not consistent with a neurodegenerative condition. Recommendations: 1. It is recommended that Ms. Torres undergo a re-evaluation in one year for continued monitoring of her cognitive functions. This evaluation serves as baseline cognitive testing. 2. Ms. Torres should continue psychopharmacological therapy to manage depression and anxiety, as prescribed by Evelio Long M.D., psychiatrist at [facility]. Given her ongoing chronic pain associated with a failed SCS, she may also benefit from outpatient counseling services at [facility]. I discussed this with her today. She previously saw a therapist at their clinic. For continuity of care, I recommend for her to consider re-initiating counseling services. 3. Ms. Torres should continue to attend outpatient visits with her medical providers to manage vascular risk factors [i.e. CVA syndrome, hypertension, hyperlipidemia, coronary artery disease, atrial fibrillation, and diabetes] for continued stabilization of her cognitive deficits and to minimize the risk of developing Vascular dementia. 4. From a cognitive perspective, the importance of CPAP therapy should be addressed with Ms. Torres. Studies have shown that continuous positive airway pressure therapy improves cognitive function in patients with obstructive sleep apnea after only 3 months of treatment (Gage Rivera, et. al, 2015, CPAP improves cognitive function in patients with obstructive sleep apnea; Clinical Respiratory Journal). Given her pre-existing vascular risk factors that pre-dispose her towards dementia, she should be encouraged to be compliant with CPAP therapy. This note was dictated using [employer] voice recognition software. Cc: Alisa Kunz DO. documented in this encounter Plan of Treatment Not on file documented as of this encounter Visit Diagnoses Not on filedocumented in this encounter
--- OUTSIDE RECORDS SUMMARY | 2024-08-30 13:12 | XMS_ITS | Clinical Summary ---
Author Organization [facility] Address [address] [place] [address] Care Team Providers Care Soil Expert Name Role Phone Unavailable Primary Care Provider [...]
== END 2024-08-30 23:59 | disposition home or self-care (01) ==
LOC: RT 12:57
PROVIDERS: PCP Internal Medicine; Visit Provider Internal Medicine Cardiovascular Disease
DX: I49.8 Other specified cardiac arrhythmias (principal); I48.0 Paroxysmal atrial fibrillation; R94.31 Abnormal electrocardiogram [ECG] [EKG]; Z95.0 Presence of cardiac pacemaker
CPT/HCPCS: 93005

== ENCOUNTER 2024-10-04 10:23 | Outpatient (CLI) | payer MEDICARE, SELFPAY ==
--- OUTSIDE RECORDS SUMMARY | 2019-03-15 14:10 | XMS_ITS | Encounter Summary ---
Author Organization [facility] Address [address] [place] [address] Care Team Providers Care Crushing Machine Operator Name Role Phone Jackson Malave MD Primary Care Provid er Reason for Referral * Hospital - Outpatient (Routine) - Closed Specialty Diagnoses / Procedures Referred By Luis Armando Referred To Contact Sleep Medicine Diagnoses EWELINA (obstructive sleep apnea) Fatigue, unspecified type Procedures Home Sleep Study Jesu Duarte MD Phone: tel: fax: [facility] [address] [address] Phone: tel: fax: Referral ID Status Reason Start Date Expiration Date Visits Re quested Visits Authorized [id number] Closed 02/09/2019 02/09/2020 1 1 Reason for Visit * Hospital - Outpatient (Routine) - Closed Specialty Diagnoses / Procedures Referred By Contdarwin t Referred To Contact Sleep Medicine Diagnoses EWELINA (obstructive sleep apnea) Fatigue, unspecified type Procedures Home Sleep Study Jesu Duarte MD Phone: tel: fax: [facility] [address] [facility] [address] [place] [address] Phone: tel: fax: Referral ID Status Reason Start Date Expiration Date Visits Re quested Visits Authorized [id number] Closed 02/09/2019 02/09/2020 1 1 Encounter Details Date Type Department Care Team (Late st Contact Info) Description 03/15/2019 1:10 PM EST Hospital Encounter [facility] [address] [facility] [address] [place] [address] Jesu Duarte MD [address] [place] [address] EWELINA (obstructive sleep apnea); Fatigue, unspecified type Social History Tobacco Use Types Packs/Day Years Used Date Smoking Tobacco: Never Passive Smoke Exposure: Never Smokeless Tobacco: Never Alcohol Use Standard Drinks/Week Comments Yes 2 (1 standard drink = 0.6 oz pure alcohol) 1-2 beer at night, occassional rum AUDIT-C Answer Date Recorded Q1: How often do you have a drink containing alcohol? 4 or more times a week 09/24/2024 Q2: How many drinks containi ng alcohol do you have on a typical day when you are drinking? 1 or 2 Q3: How often do you have si x or more drinks on one occasion? Never 09/24/2024 Abuse Screen Answer Date Recorded Feels Unsafe at Home or Work/School no 09/24/2024 Feels Threatened by Someone no 09/07 Does Anyone Try to Keep You From Having Contact with Others or Doing Things Outside Your Home? no 09/24/2024 Physical Signs of Abuse Present no 09/24/2024 Housing Stability Answer Date Recorded Current Living Arrangements home 09/07 Potentially Unsafe Housing Conditions Not on luisa e 09/24/2024 Disabilities Answer Date Recorded Difficulty Concentrating, Remembering or Making Decisions no 09/24/2024 Difficulty Managing Errands Independently yes 09/24/2024 Comments No Sex and Gender Information Value Date Recorded Sex Assigned at Female 12/30/2022 3:37 PM EDT Legal Sex Female 11:33 AM EDT Gender Identity Female 12/30/2022 3:37 PM EDT Sexual Orientation Not on file documented as of this encounter Last Filed Vital Signs Vital Sign Reading Time Taken Comments Blood Pressure 129/58 03/15/2019 1:39 PM EST Pulse 66 03/15/2019 1:39 PM EST Temperature - - Respiratory Rate - - Oxygen Saturation 91% 03/15/2019 1:39 PM EST Inhaled Oxygen Concentration - - Weight 66.1 kg (145 lb 12.8 oz) 03/15/2019 1:39 PM EST Height 160 cm (5' 2.99 ) 03/15/2019 1:39 PM EST Body Mass Index 25.83 03/15/2019 1:39 PM EST documented in this encounter Functional Status * Question Answer Date of Assessment Author 1. Wish to be (Past 1 Month) No 09/24/2024 9:45 AM EDT Cassandra Parisi RN 2. Non-Specific Active Suicidal Thoughts (Past 1 Month) No 09/24/2024 9:45 AM EDT Cassandra Parisi RN * Calculated C-SSRS Risk Score (Lifetime/Recent) Answer Date of Assessment Author No Risk Indicated 09/24/2024 9:45 AM EDT Tanya Boyce RN * [place] Suicide Severity Rating Scale (Screener/Recent Self-Report) Question Answer Date of Assessment Author 6. Suicidal Behavior (Lifetime) No 09/24/2024 9:45 AM EDT Cassandra Parisi RN documented as of this encounter Plan of Treatment Upcoming Encounters Date Type Department Care Team (Late st Contact Info) Description 12/02/2024 3:30 PM EDT Office Visit [facility] [address] [facility] [place] [address] Sujit Reyes MD [address] [place] [address] 01/19/2025 1:45 PM EST Office Visit [facility] [address] [place] [address] Naveen Velasquez MD [address] [facility] [address] [place] [address] documented as of this encounter Procedures Procedure Name Priority Date/Time Associated Diagnosis Comments HST Routine 03/16/2019 10:50 AM EST EWELINA (obstructive sleep apnea) Fatigue, unspecified type documented in this encounter Results * HST (03/16/2019 10:50 AM EST) Narrative Jesu Duarte MD - 03/18/2019 4:16 PM EST Polysomnography Report Patient Name: Michelle Felipe Interpreting Physician: Jesu Duarte MD Date of : 1950 Referring Physician: No info available Primary Care Physician: Jackson Malave MD Date of Study: Clinical Information Patient is a 69 y.o. female. She was diagnosed with obstructive sleep apnea about 7 years ago. She really has no recollection of where the study was done or what doctor she saw. She was given CPAP therapy but could not tolerate it. She really has never used CPAP for any length of time. She has problems with the mask and the hose. She has ongoing problems with fatigue and a lack of energy during the day. She has some concern that her untreated sleep apnea may lead to other problems and she would like to get a better night sleep and she came here to see if there are any other options. She typically does not sleep with her but he does report snoring and apneas on a nightly basis on his questionnaire. Methods used for Home Sleep Testing: Patient had a home sleep test with an [employer] Night One device that measured airflow at the nose and mouth. It measured thoracic respiratory effort using respiratory inductance plethysmography. It measured oxygen saturation and determined pulse rate. Body position was recorded. Snoring was judged by transducer vibration. It was scored using standard techniques. Home Sleep Testing Results TOTAL RECORDING TIME: Total Recording Time (TIB) (min): 631.3 minutes TOTAL MONITORING TIME: Total Sleep Time (TST)(min): 520 minutes SLEEP LATENCY: No data recorded Respiratory Data OBSTRUCTIVE APNEA INDEX Obstructive Apnea Index (#/hr TST): 9.6 OBSTRUCTIVE APNEA TOTAL Obstructive Apnea Total: 83 CENTRAL APNEA INDEX Central Apnea Index (#/hr TST): 1.8 CENTRAL APNEA TOTAL Central Apnea Total : 16 MIXED APNEA INDEX Mixed Apnea Index (#/hr TST): 0 MIXED APNEA TOTAL Mixed Apnea Total: 0 OBSTRUCTIVE HYPOPNEA INDEX Obstructive Hypopnea Index (#/hr TST): 3.9 OBSTRUCTIVE HYPOPNEA TOTAL Obstructive Hypopnea Total (#/hr TST): 34 TOTAL APNEA INDEX Total Apnea Index (#/hr TST): 11.4 AHI/LARRY: AHI: 15.3 RDI: No data recorded OCCURRENCE OF CHECO AREVALO Occurrence of [place] Breathing: no DURATION OF CHECO AREVALO No data recorded Cardiac AVG HR DURING SLEEP Avg HR During Sleep: 60.3 bpm HIGHEST HR DURING SLEEP Highest HR During Sleep: 83 bpm Oximetry MIN SPO2 Min SpO2: 71 % O2 SATURATION, MEAN VALUE Arterial Oxygen Saturation, Mean Value (%): 86 % Diagnostic Respiratory Index Summary by Body Position Supine AHI/LARRY, TOTAL AHI, TOTAL : 86.2 RDI, TOTAL No data recorded Duration (Min) Duration (min) : 77.2 Left AHI/LARRY, TOTAL AHI, TOTAL : 4 RDI, TOTAL No data recorded Duration (Min) Duration (min) : 182.6 Right AHI/LARRY, TOTAL AHI, TOTAL : 5.2 RDI, TOTAL No data recorded Duration (Min) Duration (min) : 310 Prone AHI/LARRY, TOTAL No data recorded RDI, TOTAL No data recorded Duration (Min) No data recorded Upright AHI/LARRY, TOTAL No data recorded RDI, TOTAL No data recorded Duration (Min) No data recorded Impression: There is moderate elevation of the AHI consistent with moderate obstructive sleep apnea. Surprisingly there is significant amount of oxygen desaturation which cannot be fully explained by the recorded apneas and hypopneas. Significant snoring was noted. Plan: Would suggest a trial of auto CPAP therapy but I would certainly reassess nocturnal oxygen saturations once fully controlled on therapy by other measures. Follow-up: Sleep center Electronically signed by: Jesu Duarte MD 03/18/19 4:14 PM us Jseu Duarte MD SLEEP CENTER ORDERABLE S Final Result documented in this encounter Visit Diagnoses Diagnosis EWELINA (obstructive sleep apnea) Obstructive sleep apnea (adult) (pediatric) Fatigue, unspecified type documented in this encounter Additional Health Concerns Infection Onset Date Last Indicated Resolved Time COVID Screen (preop/placement) 05/01/2020 05/01/2020 05/02/2020 9:16 AM EST documented as of this encounter Care Teams Crushing Machine Operator Relationship Specialty Start Date End Date Jackson Malave MD PCP - General Internal Medicine 12/09/18 04/25/21 documented as of this encounter
--- OUTSIDE RECORDS SUMMARY | 2024-08-14 15:16 | XMS_ITS | Encounter Summary ---
Author Organization [facility] Address [address] [place] [address] Care Team Providers Care Supervisor Covering And Lining Name Role Phone Alisa Kunz Primary Care Provider [phone] Kodi Bustos DO Unavailable [phone] Sujit Arriola MD Unavailable Sujit Reyes MD Unavailable [phone] Zully Caldwell LPN Unavailable Unavailable Ekaterina Gómez Unavailable Unavailable Reason for Referral * Home Health (Routine) - Authorized Specialty Diagnoses / Procedures Referred By Luis Armando mckeon Referred To Contact Home Health Services Diagnoses Pleural effusion Kenneth James MD [address] [place] [address] Phone: tel: fax: Referral ID Status Reason Start Date Expiration Date Visits Requested Visits Authorized [id number] Authorized Specialty Services Required 08/23/2024 02/22/2026 999 999 Reason for Visit * Reason Comments Shortness of Breath * Auth/Cert (Routine) Specialty Diagnoses / Procedures Referred By Luis Armando mckeon Referred To Contact Diagnoses Shortness of breath Pleural effusion Acute on chronic congestive heart failure, unspecified heart failure type (CMS/HCC) Acute on chronic hypoxic respiratory failure Arben Ibarra MD [address] [place] [address] Phone: tel: fax: [facility] Inpatient [address] [place] [address] Phone: tel: Referral ID Status Reason Start Date Expiration Date Visits Re quested Visits Authorized [id number] 1 1 Encounter Details Date Type Department Care Team (Late st Contact Info) Description 08/14/2024 3:16 PM EDT - 08/24/2024 3:19 PM EDT Hospital Encounter [facility] Inpatient [address] [phone] Jackson Puente MD [address] [place] [address] Arben Ibarra MD [address] [place] [address] Doron Thayer MD [address] [place] [address] Kenneth James MD [address] [place] [address] Pleural effusion (Primary Dx); Acute on chronic congestive heart failure, unspecified heart failure type ([facility]/HCC); Shortness of breath; Systemic lupus erythematosus (SLE) in adult ([facility]) Discharge Disposition: Home or Self Care Social History Tobacco Use Types Packs/Day Years Used Date Smoking Tobacco: Never Passive Smoke Exposure: Past Smokeless Tobacco: Never Passive Exposure Comments:2n d hand smoke Alcohol Use Standard Drinks/Week Comments Yes 4 (1 standard drink = 0.6 oz pur e alcohol) Nightly Social Connection and Isolation Panel Answer Date Recorded In a typical week, how many times do you talk on the phone with family, friends, or neighbors? Once a week 08/31/19 How often do you get togethe r with friends or relatives? Once a week 08/30/2022 How often do you attend [facility] or holiness services? 1 to 4 times per year 08/30/2022 Do you belong to any clubs o r organizations such as jainism groups, unions, fraternal or athletic groups, or [...] Recorded Patient Health Questionnaire-2 Score 0 08/04/2024 [facility] - Occupational Stress [...] exercise at this level? 60 min 08/30/2022 Housing Stability Vital Sign Answer Hong e [...] place to sleep or slept in a intermediate (including now)? No 12/30/2023 PHQ-9 Answer Date [...] any time in the past 12 m [facility], were you homeless or living in a intermediate (including now)? No 05/27/2024 Humiliation, Afraid, Rape, and Kick questionnair e Answer Date Recorded Within the last year, have y ou been afraid of your partner or ex-partner? No 08/15/2024 Within the last year, have y ou been humiliated or emotionally abused in other ways by your partner or ex-partner? No Within the last year, have y ou been kicked, hit, slapped, or otherwise physically hurt by your partner or ex-partner? No 08/15/2024 Within the last year, have y ou been raped or forced to have any kind of sexual activity by your partner or ex-partner? No 08/15/2024 Hunger Vital Sign Answer Date Recorded Within the past 12 months, y ou worried that your food would run out before you got the money to buy more. Never true 08/26/19 Within the past 12 months, t he food you bought just didn't last and you didn't have money to get more. Never true 08/25/2024 PRAPARE - Transportation Answer Date Re corded In the past 12 months, has l ack of transportation kept you from medical appointments or from getting medications? No 08/08 In the past 12 months, has l ack of transportation kept you from meetings, work, or from getting things needed for daily living? No 08/25/2024 Housing Stability Vital Sign Answer Hong e Recorded In the last 12 months, was t here a time when you were not able to pay the mortgage or rent on time? No 08/25/2024 In the past 12 months, how m any times have you moved where you were living? 0 08/25/2024 At any time in the past 12 m [facility], were you homeless or living in a intermediate (including now)? No 08/25/2024 CAGE ASSESSMENT Answer Date Recorded Cage unable to access Not on file 08/14/2024 Maximum number of drinks you had on a given occasion in the last month? 0 drinks 08/14/2024 How many alcoholic Beverages do you typically drink in a week? 0 - 7 per week 08/14/2024 Have you ever felt you should CUT down on your d rinking? 0 08/14/2024 Have you been ANNOYED by peo ple criticizing your drinking? 0 08/14/2024 Have you felt GUILTY about your drinking? 0 08/14/2024 Have you had a drink first t anselmo in the morning ([employer]) to steady your nerves or to get rid of a hangover? 0 08/14/2024 CAGE Questionnaire Score 0 025 Utilities Answer Date Recorded In the past 12 months has e [employer], gas, oil, or water company threatened to shut off services in your home? No 08/25/2024 PHQ-2A Answer Date Recorded Depression Risk 0 09/18/2022 Comments No Sex and Gender Information Value Date Recorded Sex Assigned at Female 11/01/2020 9:33 PM EDT Legal Sex Female 8:14 PM EDT Gender Identity Female 11/01/2020 9:33 PM EDT Sexual Orientation Straight 11/01/2020 9: 33 PM EDT documented as of this encounter Last Filed Vital Signs Vital Sign Reading Time Taken Comments Blood Pressure 100/62 08/24/2024 11:36 AM EDT Pulse 59 08/24/2024 11:36 AM EDT Temperature 36.7 C (98 F) 08/24/2024 11:36 AM EDT Respiratory Rate 16 08/24/2024 11:36 AM EDT Oxygen Saturation 95% 08/24/2024 11:36 AM EDT Inhaled Oxygen Concentration - - Weight 59.7 kg (131 lb 9.8 oz) 08/24/2024 5:30 A M EDT Height 162.6 cm (5' 4 ) 08/16/2024 7:12 AM EDT Body Mass Index 22.59 08/16/2024 7:12 AM EDT documented in this encounter Functional Status * Calculated C-SSRS Risk Score (Lifetime/Recent) Answer Date of Assessment Author No Risk Indicated 08/24/2024 8:11 AM EDT Kosta Dugan RN * Question Answer Date of Assessment Author 1. Wish to be (Past 1 Month) No 025 8:11 AM EDT Kosta Dugan RN 2. Non-Specific Active Suici dillon Thoughts (Past 1 Month) No 08/24/2024 8:11 AM EDT Autumn Dugan RN 6. Suicidal Behavior (Lifetime) No 5 8:11 AM EDT Kosta Dugan RN documented as of this encounter Medications at Time of Discharge acetaminophen (Tylenol) 500 MG tablet Take 2 tablets by mouth every 6 hours as needed. aspirin 81 MG EC tablet Take 1 tablet by mouth every evening. cetirizine (ZyrTEC) 10 MG tablet Take 1 tablet by mouth every evening. DULoxetine (Cymbalta) [address] capsule Take 1 capsule (20 mg) by mouth 1 (one) time each day in the morning. Taking 80mg total 90 capsule 3 03/23/2024 DULoxetine (Cymbalta) [address] capsule Take 1 capsule by mouth daily. Do not crush or chew. Take in [...] of the week 90 tablet 1 07/16/2024 gabapentin (Neurontin) 300 MG capsule Take 1 capsule by mouth 2 times a day. 60 capsule 08/24/2024 insulin glargine (Toujeo SoloStar) 300 UNIT/ML injection pen (1 UNIT DIAL)Indications:T ype 1 diabetes mellitus with hyperglycemia (CMS/HCC) Inject 14 Units under the skin every morning. 4.5 mL 3 08/04/2024 6 insulin lispro (HumaLOG KWIKPEN) 100 UNIT/ML injection penIndications:Typ e 1 diabetes mellitus with hyperglycemia (CMS/HCC) Inject 2-6 units before meals plus 1:60>150. Max tdd 30 units 30 mL 2 08/04/2024 latanoprost (Xalatan) 0.005 % ophthalmic solution Administer [...] Inhale 2 L nightly. via nasal canula warfarin (Coumadin) 5 MG tablet Take 2.5 mg on Friday and 5mg the rest of the week and follow up with your warfarin pharmacist. 30 tablet 07/15/2024 brimonidine 0.2 % OP ophthalmic solution Administer 1 drop into both eyes daily. 10 mL 06/22/2024 5 busPIRone (Buspar) 10 MG tablet Take 1 tablet by mouth 2 times a day as needed. 09/20/2020 5 Calcium Carb-Cholecalcifer ol 600-200 MG-UNIT tablet Take 1 tablet by mouth every morning. 5 clobetasol (Temovate) 0.05 % cream Apply 1 Application topically 2 times a day as needed. 5 furosemide (Lasix) 40 MG tablet Take 1 tablet by mouth daily. 30 tablet 07/15/2024 5 hydroxychloroquine (Plaquenil) 200 MG tabletIndications: Systemic lupus erythematosus (SLE) in adult ([facility]) Take 1 tablet by mouth daily. 90 tablet 1 07/21/2024 5 mycophenolate (CellCept) 500 MG tabletIndications: Systemic lupus erythematosus (SLE) in adult ([facility]) Take 2 tablets by mouth 2 times a day. 120 tablet 08/24/2024 5 Pitavastatin Calcium (Livalo) 4 MG tabletIndications: Type 1 diabetes mellitus with other specified complication ([facility]),Dyslipid emia Take 1 tablet by mouth 1 (one) time each day. 90 tablet 3 07/07/2023 Probiotic Product (acidophilus probiotic blend) capsule Take 1 capsule by mouth every morning. 5 spironolactone (Aldactone) 25 MG tablet Take 0.25 tablets by mouth daily. 30 tablet 07/20/2024 5 documented as of this encounter Miscellaneous Notes * Care Plan - Kosta Dugan RN - 08/24/2024 2:57 PM EDT Problem: Adult Inpatient Plan of Care Goal: Plan of Care Review Outcome: Ongoing, Progressing Goal: Patient-Specific Goal (Individualized) Outcome: Ongoing, Progressing Goal: Absence of Hospital-Acquired Illness or Injury Outcome: Ongoing, Progressing Goal: Optimal Comfort and Wellbeing Outcome: Ongoing, Progressing Goal: Readiness for Transition of Care Outcome: Ongoing, Progressing Problem: Mobility Impairment Goal: Optimal Mobility Outcome: Ongoing, Progressing Problem: Infection Goal: Absence of Infection Signs and Symptoms Outcome: Ongoing, Progressing Problem: Diabetes Goal: Optimal Coping Outcome: Ongoing, Progressing Goal: Optimal Functional Ability Outcome: Ongoing, Progressing Goal: Blood Glucose Level Within Target Range Outcome: Ongoing, Progressing Goal: Minimize Hypoglycemia Risk Outcome: Ongoing, Progressing Problem: Gas Exchange Impaired Goal: Optimal Gas Exchange Outcome: Ongoing, Progressing Problem: Skin Injury Risk Increased Goal: Skin Health and Integrity Outcome: Ongoing, Progressing * Discharge Summary - Doron Thayer MD - 08/24/2024 1:54 PM EDT Images from the original note were not included. Hospitalization Admit Date/Time: 08/14/2024 3:16 PM Admitting Attending: Arben Ibarra Discharge Date: 08/24/24 Discharge Attending Physician: Doron Thayer MD PCP name and Address: Alisa Kunz DO [address] [address] Referring provider name and address: No referring provider defined for this encounter. Chief Concern, Brief History of Present Illness, and Hospital Course Doron Felipe is a 74-year-old woman with a PMH significant for SLE on Plaquenil followed by alfa, chronic bl pleural effusions, chronic hypoxic respiratory failure requiring 2-4 L/min at baseline, DM, hypothyroidism, HFpEF, and pacemaker who presented to the ED for progressively worsening shortness for breath. #Acute on chronic hypoxic respiratory failure secondary to pleural effusions iso diastolic HF, pHTN, and SLE - Patient presented with worsening shortness of breath and increased oxygen requirements found to have a large right pleural effusion, small left effusion - Pleural effusions: chronic since 2020 - Has required multiple hospitalizations for pleural effusions with drainage and pleurodesis - Pulmonary IR consulted - Patient was diuresed with output and BMP monitored daily, electrolytes repleted as needed. - Chest tube placed 08/17/24 per Pulm IR - Right heart cath done showing mild pulmonary hypertension - Pleurodesis done with pulm IR 08/19/24 - Chest tube removed 08/23 - PT/OT consulted - Patients symptoms are improved on discharge. - Will continue maintenance diuresis with PO lasix 40 mg and spironolactone 12.5mg daily. - Outpatient follow up with Pulmonary clinic #Acute exacerbation of heart failure with preserved ejection fraction: - Patient with known diastolic heart failure, likely strong contributor to recurrent right sided pleural effusion - Cardiology consulted who felt HF was a contributing cause of recurrent effusion on right side - RHC done demonstrating increased pulmonary pressure - Diuresed while inpatient with chest tube and pleurodesis - Discharged with metoprolol, spironolactone, lasix - Recommend close cardiology follow up #Systemic lupus erythematosus: - Suspected to be contributing to the left sided pleural effusion, managed conservatively - Continued Plaquenil and Mycophenolate, followed by Rheumatology outpatient - no clinical signs of acute lupus flare while admitted #Atrial fibrillation: - Regular rate and rhythm while admitted - Warfarin was held in anticipation for chest tube and pleurodesis - PT/INR monitored daily - Patient restarted on Warfarin 08/20/24 Surgeries and Procedures Procedures performed in this encounter Procedures Cardiac catheterization Case Request Application Assistant: Right heart catheterization Right heart catheterization (N/A) Medication List .. acetaminophen 500 MG tablet Commonly known as: Tylenol Take 2 tablets by mouth every 6 hours as needed. acidophilus probiotic blend capsule Take 1 capsule by mouth every morning. aspirin 81 MG EC tablet Take 1 tablet by mouth every evening. brimonidine 0.2 % ophthalmic solution Commonly known as: AlphaGAN P Administer 1 drop into both eyes daily. busPIRone 10 MG tablet Commonly known as: Buspar Take 1 tablet by mouth 2 times a day as needed. Calcium Carb-Cholecalciferol 600-200 MG-UNIT tablet Take 1 [...] Commonly known as: Neurontin Take 1 capsule by mouth 2 times a day. hydroxychloroquine 200 MG tablet Commonly known as: Plaquenil Take 1 tablet by mouth daily. insulin lispro 100 UNIT/ML injection pen Commonly known as: HumaLOG KWIKPEN Inject 2-6 units before meals plus 1:60>150. Max tdd 30 units latanoprost 0.005 % ophthalmic solution Commonly [...] MG tablet Commonly known as: CellCept Take 2 tablets by mouth 2 times a day. nitroglycerin 0.4 MG SL tablet Commonly known as: Nitrostat Place 1 tablet under the tongue every 5 minutes as needed for chest pain. oxygen gas Commonly known as: O2 Inhale 2 L nightly. via nasal canula Pitavastatin Calcium 4 MG tablet Commonly known as: Livalo Take 1 tablet by mouth 1 (one) time each day. spironolactone 25 MG tablet Commonly known as: Aldactone Take 0.25 tablets by mouth daily. Toujeo SoloStar 300 UNIT/ML injection pen (1 UNIT DIAL) Generic drug: insulin glargine Inject 14 Units under the skin every morning. Trelegy Ellipta 200-62.5-25 MCG/ACT aerosol powder Generic drug: Jptdiljhlgi-Vvjhznkpm-Oqthbw Inhale 1 puff 1 (one) time each [...] care provider to review them with you. Where to Get Your Medications These medications were sent to [facility] - [address] [address] gabapentin 300 MG capsule These medications were sent to [facility] - [place], [place] - [address] [facility] [id number] mycophenolate 500 MG tablet Discharge Diagnosis Medical Problems Active and Resolved Hospital Problems Hospital Type 1 diabetes mellitus with other specified complication ([facility]) Overview Addendum 01/05/2024 2:49 PM by Alisa Kunz DO - Complicated by neuropathy, nephropathy, retinopathy, currently struggling with hyperglycemia. Last A1c 8.0% in 10/2023. Follows closely with endocrinology. - On statin, ARB - Follows with Endocrinology. Wears Dexcom CGM. Acquired hypothyroidism Overview Addendum 01/05/2024 2:47 PM by Alisa Kunz DO - Last TSH 0.77 in 06/2023 - On levothyroxine 125 mcg daily. SLE (systemic lupus erythematosus) ([facility]) Overview Addendum 12/26/2022 9:45 AM by Ze, Alisa L, DO - Chronic, worsening. - Pleural effusion is believes to be from SLE. - Following closely with rheumatology for management. Pleural effusion Overview Addendum 01/09/2023 8:42 AM by Alisa Kunz, DO - Chronic since 2020, now improved. - Required multiple hospitalizations within the last few months: status post left pleuroscopy, pleural biopsy, PleurX placement and chemical pleurodesis 11/19/2022. Removed 12/2022. - Pulmonary team believes underlying etiology is secondary to SLE. - Following with the pulmonary team closely. Presence of cardiac pacemaker * (Principal) Acute on chronic hypoxic respiratory failure Heart failure with preserved ejection fraction (CMS/HCC) Atrial fibrillation (CMS/HCC) Acute on chronic congestive heart failure (CMS/HCC) Post Discharge Instructions Outpatient Follow-Up Future Appointments Date Time Provider Department Center 09/08/2024 11:20 AM Alisa Kunz DO [facility] 10/07/2024 4:00 PM [facility] 10/14/2024 4:00 PM La[facility] Shoemaker [facility] 10/27/2024 1:40 PM Anne-Marie Kolb, [facility] [place] 11/29/2024 10:20 AM Alisa Kunz DO [facility] 02/02/2025 10:30 AM Sadiq Osborne MB[facility] Test Results Pending At Discharge Pending Labs Order Current Status Triglycerides BF with RFLX to CHYLO (SO) In process AFB Culture and Acid Fast Stain - Pleural Right Preliminary result Pertinent Physical Exam At Time of Discharge Physical Exam Patient seen on day of discharge. Sitting up in bed, no increased work of breathing, able to maintain a conversation without difficulty. Discharge Disposition/Condition Disposition: Home Condition: Stable (s/sx potential problems absent or manageable) I spent >30 minutes of patient care and instruction time in preparation for this discharge. * Progress Notes - Nathan Lima - 08/24/2024 1:07 PM EDT Case Management Discharge Note Doron Felipe 74 y.o. 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 Grader: Primary Caregiver: Family Assistance Available at Discharge: Current Outpatient/Agency/Support Group: clinic(s), DME Availability of Care Givers (#Hours): 24 hours Family/Poultry Grader(s) Willingness Assessed to care for patient at home: Yes Family/Poultry Grader(s) Readiness Assessed to care for patient at home: Yes Housing Circumstances-Z Codes: Housing Circumstances (select all that apply): Low Income (101-300% Federal Poverty Guidlines) - Z596 Patient Referred to Financial or Community Resources: Financial Resources: Other (Comment) (Pt reported no Financial or Community Resources needs at thistime) Discharge Facility/Level of Care Needs: Discharge Facility/Level of Care Needs: 1-Home or Self Care Patient's Choice of Community Agency(s): Patient's Choice of Community Agency(s): [facility] Patient/Family Anticipated Services at Transition: Patient/Family Anticipated Services at Transition: outpatient care, other (see comments) ([facility]) DME/Equipment Needed after Discharge: Equipment Currently Used at Home: wheelchair, manual, walker, rolling, oxygen, cane, straight, commode chair, shower chair Equipment Needed After Discharge: none Readmission Within the Last 30 Days: Readmission Within the Last 30 Days: no previous admission in last 30 days Medicare Documentation: Medicare Second Notice?: Yes Date Second Notice Completed: 08/24/24 Time Second Notice Completed: 1015 Medicare Second Notice Recieved By: patient Follow-up: Debbie Parnell ([facility]) [phone] Follow up Provider for Ambulatory Population Health- Healthcare Discharge Transportation: Transportation Anticipated: family or friend will provide Transportation Home at Discharge: Family/Friend will Provide Has discharge transport been arranged?: Yes What day is the transport expected?: 08/24/24 What time is the transport expected?: 1600 Follow Up Transport: Transportation Needed to Follow up Appoinments: Family/Friend will Provide Additional Comments: Plan of care reviewed with pt's care team; and per MD, pt is medically ready for discharge back home with spouse. Pt spouse will assist with transportation on discharge. SW attempted to arranged Home Health for PT/OT after hospitalization, due to patient insurance HomeHealth agency is unable to accept or at capacity with patient insurance. Pt will be provided a Outpatient PT/OT script upon discharge. Pt was provided a number for Debbie Parnell ( [facility]) due to the concern that her family is unable to assist at times with transportation. Pt reported that she was comfortable with returning home, Pt reported knowing how to utilize [facility] Medicare transportation if needed and reported that her insurance provides certain amount transportation within a couple days after discharging from the hospital. No further SW services planned. Nathan Lima, SLOTTER OPERATOR HELPER, DIRECTOR OF RESIDENCE LIFE * Tk Alexander - 08/24/2024 12:37 PM EDT Images from the original note were not included. [id number] Pleural Effusion The pleura is a smooth double membrane that surrounds the lungs. It separates the lungs from the chest wall. One side of the pleura attaches to the lung. The other side attaches to the chest wall. This membrane makes it easier for the chest to inflate and deflate as you breathe without rubbing against the ribs. You normally have a small amount of lubricating fluid (pleural fluid) between the pleural membranes. A pleural effusion is when too much fluid collects in the space between the two pleural membranes (pleural space). As the amount of fluid increases, it begins to press on the lung. This makes it harder to take a full breath. There are two types of pleural effusion: ? Exudative. This is caused by extra fluid related to inflammation, injury, infection, or a tumor. Empyema is when pus builds up in the pleural space. ? Transudative. This is caused by abnormal fluid pressures inside the blood vessels. The pressure can be caused by congestive heart failure (CHF). In CHF, extra fluid collects inside the lung tissuesbecause of a weakened heart muscle. This extra fluid then leaks into the pleural space. Pleural effusion may cause any of these symptoms: ? Shortness of breath ? Rapid breathing ? Cough or hiccups ? Sharp chest pain that hurts more with coughing or deep breathing ? Fever ? Fatigue A small pleural effusion may cause no symptoms at all. Treatment will be directed at the cause of the pleural effusion. If you are having a lot of troublebreathing, the healthcare provider may do a thoracentesis procedure to remove the fluid from the pleural space. This involves placing a needle or tube (catheter) through the chest wall into the pleural space. This usually gives relief right away. But the fluid may gradually return, depending on thecause. You may be given antibiotics if your pleural effusion was caused by an infection. Home care Follow these guidelines when caring for yourself at home: ? Rest until you feel better. Exerting yourself may make your symptoms worse. ? Your healthcare provider may have prescribed medicines to treat the underlying cause of the pleural effusion. Take these exactly as directed. Follow-up care Follow up with your healthcare provider, or as advised. When to get medical advice Call your healthcare provider right away if any of these occur: ? Fever of 100.4??F (38??C) or higher, or as directed by your healthcare provider ? Chills ? Dry cough that doesn't get better with treatment ? Generally not feeling well ? Sudden inability to do daily activities Call 911 Call 911 if any of the following occur: ? Shortness of breath gets worse ? Chest pain gets worse ? Chest tightness or heaviness ? Coughing up blood ? Weakness, dizziness, or fainting Last Reviewed Date: 2023 00:00:00 ?? [id number] [employer]. All rights reserved. This information is not intended as a substitute for professional medical care. Always follow your healthcare professional's instructions. * Delilah HewittREPLACED BY [facility] - Tk Hale - 08/24/2024 12:36 PM EDT Images from the original note were not included. [id number] Heart Failure What is heart failure? The heart is a muscle that pumps oxygen-rich blood to all parts of the body. When you have heart failure, the heart can?t pump as well as it should. Or the heart muscle can?t relax and fill the pumping chamber with blood. Blood and fluid may back up into the lungs. This causes heart failure. And itcauses pulmonary edema. Some parts of the body also don?t get enough oxygen-rich blood. This means they can't work well. These problems lead to the symptoms of heart failure. What causes heart failure? Heart failure may result from: ? Heart valve disease ? High blood pressure ? Active infections of the heart valves or heart muscle, such as endocarditis ? A past heart attack ? Coronary artery disease ? Disease of the heart muscle (cardiomyopathy) ? Heart problems that are present at (congenital heart defects) ? Heart rhythm problems (arrhythmias) ? Long-term (chronic) lung disease and pulmonary embolism ? A reaction to medicines, such as those used for chemotherapy ? Anemia and too much blood loss ? Thyroid disorders ? Diabetes ? Alcohol and drug abuse ? Certain viral infections What are the symptoms of heart failure? The most common symptoms of heart failure are: ? Shortness of breath while resting, exercising, or lying flat ? Weight gain from water retention ? Visible swelling of the legs, ankles, and feet from fluid buildup. Sometimes the belly (abdomen) may swell. ? Severe tiredness (fatigue) and weakness ? Loss of appetite, nausea, and belly pain ? Cough that doesn?t go away. It can cause blood-tinged or frothy sputum. The severity of the condition and symptoms depends on how much of the heart's pumping ability has been affected. The first step in managing heart failure symptoms is knowing your baselines or what?s normal for you. How much do you weigh? Are you gaining weight but eating the same amount? How much can you do before you feel short of breath? Do your socks and shoes fit comfortably? Knowing what?s normal for you will help you see when symptoms are getting worse. Once you know your baselines, watchfor changes daily. The symptoms of heart failure may look like other health problems. Always see your healthcare provider for a diagnosis. How is heart failure diagnosed? Your healthcare provider will ask about your health history. They will give you a physical exam. You may need tests, such as: ? Chest X-ray. This test makes images of internal tissues, bones, and organs on film. This test shows the size and shape of your heart. Fluid in the lungs will also show up on X-ray. ? Echocardiogram. This test is also called an echo. It uses sound waves to assess the motion of theheart?s chambers and valves. The sound waves make an image on the screen as an ultrasound transducer is passed over the heart. This shows how well the heart pumps and relaxes. It also shows the thickness of the heart griffiths, and if the heart is enlarged. It can assess heart valve function and blood flow as well. It is one of the most useful tests because it shows a lot of information about the heart?s function. And it can help guide treatment choices. ? Electrocardiogram. This test records the electrical activity of the heart. It shows abnormal rhythms. It can sometimes find heart muscle damage. ? BNP testing. B-type natriuretic peptide (BNP) is a hormone released from the ventricles that occurs with heart failure. BNP levels are useful in the quick assessment of heart failure. The higher the BNP levels, the worse the heart failure. BNP is measured from a blood sample. ? Cardiac MRI. This test uses a magnetic field to make images of the heart and its nearby tissues. It can assess how the heart muscle and valves are working. How is heart failure treated? The cause of heart failure will guide the treatment plan. If heart failure is caused by a valve problem or coronary heart disease, then you may need a procedure. This may be a percutaneous coronary intervention. Or it may be surgery. If heart failure is caused by a problem, such as anemia or an infe ction, you may need medicine to treat this problem. Some causes of heart failure are reversible or short-term, such as an acute infection. For many causes of heart failure there is no cure. But many forms of treatment can help with symptoms. They are listed below. Lifestyle changes These healthy habits may help with heart failure: ? Controlling blood pressure ? Controlling blood sugar if you have diabetes ? Quitting smoking ? Maintaining a healthy weight. Losing weight, if needed ? Regular exercise ? Limiting salt and fat in your diet ? Not drinking alcohol or using illicit drugs ? Getting enough rest ? Reducing stress ? Other important lifestyle habits include getting vaccines, such as for the flu and pneumococcal pneumonia. If you have sleep problems, getting a sleep study can help find out what?s causing them. You may need to wear a C-PAP mask while you sleep. This will make sure you get enough oxygen. Too little oxygen can put stress on your heart. Medicines Many types of medicines are available for heart failure. They include: ? Angiotensin converting enzyme (JAVON) inhibitors. These lower the pressure inside the blood vessels. This reduces the pressure that the heart has to pump against. They can also help the heart have better pumping ability over time. ? Angiotensin receptor blockers (ARB). Some people get a cough and need to stop taking JAVON inhibitors. If that happens, an ARB may work for you. These help relax blood vessels and reduce stress on the heart. ? Angiotensin receptor-neprilysin inhibitors (ARNIs). This medicine combines an ARB and a neprilysin inhibitor. This can help the heart as noted above. And it can promote salt and water loss. This medicine is preferred over JAVON inhibitors and ARBs alone. ? Diuretics. These reduce the amount of fluid in the body. They are among the most important medicines in helping control fluid buildup in the body. ? Beta-blockers. These reduce the heart?s tendency to beat faster. They can also help the heart pump better over time. ? Aldosterone blockers. These block the effects of the hormone aldosterone. This hormone causes sodium and water retention. ? Vasodilators. These include hydralazine and nitroglycerin. These widen (dilate) the blood vessels. They reduce the workload on the heart. ? Statins or PCSK9 inhibitors. These lower the amount of bad cholesterol in your blood. They are not used to treat heart failure. But you may take one if you have high cholesterol. Or you may take one if you have had a past heart attack and are at risk for heart failure. People who have inherited forms of high cholesterol (familial hypercholesterolemia) may get help from PCSK9 inhibitors. These medicines lower cholesterol. ? Sodium-glucose cotransporter-2 (SGLT2) inhibitors. They block your kidneys from reabsorbing sugarfrom the blood. This helps your body get rid of extra salt and water and so lowers your blood pressure. Lowering your blood pressure eases the strain on your heart. ? Digitalis. This medicine helps the heart beat stronger. It may help with controlling heart rate if there is an abnormal heart rhythm. ? Antiarrhythmics. These help keep normal heart rhythm. ? Sinus node I-f channel eloisa. This may be used to lower your heart rate. It may result in less stress on your heart. This medicine is reserved for people who still have high resting heart rates despite use of beta blockers. Heart procedures These include opening blocked arteries in the heart. This brings back blood flow to the heart muscle. It helps the ventricles squeeze as they should. The procedure can be done in the cardiac catheterization lab. It uses balloons to push plaque and blood clots out of the artery. It also uses stents to keep the artery open. This can also be done by bypassing blockages during surgery (coronary artery bypass surgery). Heart valve repair or replacement In some cases, medicines can?t help heart failure caused by heart valves that are narrowed (stenosed) or leak (regurgitant). The heart valve can be repaired or replaced. This can be done as an open-heart procedure. Or it can be done by going through a small tube (catheter) that is put into an artery or vein. Pacemaker If your heart failure has also damaged your heart?s electrical wiring system, a pacemaker can be implanted. This is done to restore normal heart rate and regularity. A cardiac resynchronizing pacemaker is used when one of the natural heart wires is damaged. This is often the wire located in the left ventricle. These pacemakers use implanted left and right sided wires to restore normal timing of the heart contraction in order to improve heart function. ICD (implantable cardioverter defibrillator) When the heart muscle is damaged, dangerous heart circuits can form in the heart muscle. This leadsto heart rhythms that can cause . An ICD is implanted in the body to sense and treat these cardiac arrest rhythms. It does this by overdrive pacing the heart rhythm. Or it sends an energy shock to the heart. VAD (ventricular assist device) This device is put in the chest during a surgery. It connects to an outside motor. The motor helps pump blood from the heart to the rest of the body. VADs can allow people with advanced heart failureto improve their overall symptoms and to walk more. This can be used as a long-term treatment. Or it can be used while someone waits for a donor heart for a transplant. Heart transplant In some cases, the diseased heart must be replaced with a healthy one from a donor. Talk with your healthcare providers about the risks, benefits, and possible side effects of all treatments. What are possible complications of heart failure? Complications of heart failure include: ? Fluid buildup in the lungs (pulmonary edema) ? Kidney and liver failure ? Stroke ? Abnormal heart rhythms ? How daily issues affect your health Many things in your daily life impact your health. This can include transportation, money problems,housing, access to food, and child & adolescent psychiatrist. If you can?t get to medical appointments, you may not receive the care you need. When money is tight, it may be difficult to pay for medicines. And living farfrom a grocery store can make it hard to buy healthy food. If you have concerns in any of these or other areas, talk with your healthcare team. They may know of local resources to assist you. Or they may have a staff person who can help. Maloney points about heart failure ? When you have heart failure, the heart can?t pump as well as it should. ? Heart failure may result from health problems that affect the heart, such as high blood pressure,coronary artery disease, and heart attack. ? Some common symptoms are shortness of breath, weight gain, and visible swelling of the legs and ankles. ? A chest X-ray can help diagnose lung congestion. ? Treatment varies based on the cause of heart failure. Most people are advised to make certain lifestyle changes and to take certain medicines, often for life. Procedures, such as coronary intervention and surgery, may be needed. Next steps Tips to help you get the most from a visit to your healthcare provider: ? Know the reason for your visit and what you want to happen. ? Before your visit, write down questions you want answered. ? Bring someone with you to help you ask questions and remember what your provider tells you. ? At the visit, write down the name of a new diagnosis, and any new medicines, treatments, or tests. Also write down any new instructions your provider gives you. ? Know why a new medicine or treatment is prescribed, and how it will help you. Also know what the side effects are. ? Ask if your condition can be treated in other ways. ? Know why a test or procedure is recommended and what the results could mean. ? Know what to expect if you do not take the medicine or have the test or procedure. ? If you have a follow-up appointment, write down the date, time, and purpose for that visit. ? Know how you can contact your healthcare provider if you have questions, especially after office hours or on weekends. Last Reviewed Date: 2022 00:00:00 ?? [id number] [employer]. All rights reserved. This information is not intended as a substitute for professional medical care. Always follow your healthcare professional's instructions. * Progress Notes - Alex Escobar R - 08/24/2024 9:46 AM EDT Physical Therapy Treatment Patient Name: Doron Felipe Today's Date: 08/24/2024 PT Discharge Recommendations: Home with 24 hour assistance, Outpatient PT, Outpatient OT, Home health PT, Home health OT Equipment Recommended: Patient owns appropriate equipment Subjective Patient agreeable to physical therapy. Participants in Care Family/Caregiver Present: No Aeronautical Engineering Officer: No Presentation Oxygen Oxygen Therapy: Supplemental oxygen O2 Delivery Method: Nasal cannula O2 Flow Rate (L/min): 3 L/min Lines and Tubes Lines and Tubes: Intravenous access Pre-Session RN and patient gave consent for PT treatment session. Patient received Supine, Head of bed elevated, Bed alarm, Lines intact. RN cleared pt for therapy. Post-Session Patient positioned for comfort and pressure relief at end of session, all needs met. Call light in reach, Sitting: edge of bed, Lines intact, RN notified (NO bed alarm 2/2 patient seatedat EOB; RN aware). Pt positioned for comfort, all needs in reach. Precautions Medical Precautions: Fall precautions Objective Pain Pain Score (0-10): 0 Delirium Screening Monge Agitation Sedation Scale (RASS): Alert and calm Confusion Assessment Method-ICU (CAM-ICU/PCAM-ICU) Feature 3: Altered Level of Consciousness: Negative Therapeutic Activity (13 minutes) Patient participated in therapeutic activities focused on progressing functional mobility, functional strength, and safety, along with improving upright activity tolerance. WHITE [employer] PAN TANK OPERATOR provided cues to promote maximal independence and safety. Refer to sections below for further details. Bed Mobility Bed Mobility Interventions: Cues to initiate task. Bed Mobility Exam: Scooting/Bridging Level of Cass: Modified independence Physical/Nonphysical Assist: Supervision Assistive Device: Bed rails Bed Mobility Exam: Supine to Sit Level of Cass: Modified Cass Physical/Nonphysical Assist: HOB elevated, Set-up required Assistive Device: Bed rails Transfers Transfer Interventions: Provided cues for proper hand placement, BLE set-up, forward trunk leans toinitiate coming to stand, and safe descent to sit. Transfer Exam: Sit to stand Level of Cass: Stand-by assist Physical/Nonphysical Assist: Set-up required, Verbal Cues, Nonverbal cues (demo/gestures) Assistive Device: Walker, rolling Transfer Exam: Stand to Sit Level of Cass: Stand-by assist Physical/Nonphysical Assist: Set-up required, Verbal Cues, Nonverbal cues (demo/gestures) Assistive Device: Walker, rolling Transfer Exam: Bed to Chair/Chair to Bed Level of Cass: (deferred and wanted to sit EOB instead) Ambulation Device: Rolling walker Assistance: Contact guard assist, Minimal tactile cues, Minimal verbal cues Distance : 100 feet Ambulation Comments: Demonstrated slow pace, decrease step length, decrease foot clearance, downward gaze, and no complaints of dizziness.. Cues for upright posture, increase step length, foot clearance, and self pace. Educated patient on safety awareness and energy conservation. Balance Postural Appearance Posture: Stooped posture, Forward head, Weight shift posterior to midline Static Sitting Balance Static Sitting-Balance Support: Feet supported, Right upper extremity support, Left upper extremitysupport Static Sitting-Level of Assistance: Standby assist Dynamic Sitting Balance Dynamic Sitting-Balance Support: Feet supported Dynamic Sitting-Balance: Lateral weight shifts, Anterior/Posterior weight shifts Level of Assistance: Standby assisst Static Standing Balance Static Standing-Balance Support: Right upper extremity support, Left upper extremity support (RW) Static Standing-Level of Assistance: Contact guard Dynamic Standing Balance Dynamic Standing-Balance Support: Right upper extremity support, Left upper extremity support (RW) Dynamic Standing-Balance: Lateral weight shifts, Anterior/Posterior weight shifts Dynamic Standing Level of Assistance: Contact guard Therapeutic Exercise (10 minutes) Patient participated in bilateral LE exercises while sitting unsupported EOB to address strength, muscular endurance and activity tolerance and assist in overall functional mobility performance. Patient performed ankle pumps, hip flexion (marching), and long arc quads with AROM x 10 reps each. Patient provided with cueing for proper return of demonstration of exercises. WHITE SUGAR PAN TANK OPERATOR educated patient on HEP and encouraged her to perform 2-3 times daily. Access Code: [email or web address] URL: [email or web address] Date: 08/24/2024 Prepared by: Hugh Exercises - Seated Long Arc Quad - 3 x daily - 7 x weekly - 1 sets - 10 reps - Seated March - 3 x daily - 7 x weekly - 1 sets - 10 reps - Supine Ankle Pumps - 3 x daily - 7 x weekly - 1 sets - 10 reps - Supine Quad Set - 3 x daily - 7 x weekly - 1 sets - 10 reps - 3 sec hold - Supine Gluteal Sets - 3 x daily - 7 x weekly - 1 sets - 10 reps - 3 sec hold - Supine Hip Abduction - 3 x daily - 7 x weekly - 1 sets - 10 reps - Supine Heel Slide - 3 x daily - 7 x weekly - 1 sets - 10 reps - Supine Active Straight Leg Raise - 3 x daily - 7 x weekly - 1 sets - 10 reps Assessment Patient progressed with functional mobility as noted by improved ambulation distance while using a rolling walker. She had no complaints of dizziness this date. Patient would continue to benefit fromfurther skilled PT services during the remainder of hospitalization stay to promote maximal independence with functional mobility, improve strengthening, and activity tolerance to assist with safe transition home. PT Recommendations Discharge Destination: Home with 24 hour assistance, Outpatient PT, Outpatient OT, Home health PT, Home health OT Discharge Equipment: Patient owns appropriate equipment Plan Progress mobility as tolerated. PT Goals PT GOAL DETAILS Goal Established Date Time Frame Goal Status PT Goal 1: Patient will complete supine <> sit with Britton 08/16/24 2 weeks PT Goal 2: Patient will complete STS and BTC transfers with Britton and LRAD 08/16/24 2 weeks PT Goal 3: Patient will ambulate 250 feet with SBA and LRAD with modified RPE remaining below 3/10 08/16/24 2 weeks PT Goal 4: Patient will be independent with understanding of PT discharge recommendations 08/16/24 2 weeks Written by Alex Escobar on 08/24/24 at 1:07 PM. Cosigned by Macho Diaz at 08/24/2024 1:39 PM EDT Associated attestation - Macho Diaz - 08/24/2024 1:39 PM EDT As the supervising therapist, I have reviewed and agree with this document written by the chief physical therapist for this patient on this date/time. * Consults - Sandy Figueroa RD - 08/24/2024 9:39 AM EDT Adult Nutrition Evaluation Note Doron Felipe 74 y.o. female CSN: [id number] Room/Bed 208/208C Nutrition evaluation type: follow-up Reason for evaluation: Hospital course: 74 yo female who is followed by Pulmonary and presented to the emergency department for worsening shortness for breath. Right pleural effusion, chest tube removed 08/23 Past medical/ surgical history: Past Medical History[1] Surgical History[2] Social history: Social History[3] Additional comments: 08/24: Pt reports good appetite but states the food has been awful - primary complaint was of foodbeing too spicy. Per documentation, pt consuming 75-100% of meals. Pt also states they have been receiving too many sweets on tray, but does report eating sweets when provided. Vitals and Basic Assessment: BP: 100/62 Temp: 36.7 ??C (98 ??F) Oxygen Therapy: Supplemental oxygen O2 Delivery Method: Nasal cannula [place] Coma Scale Score: 15 Jann Scale Score: 18 Miguel Ángel/Cub[place] Pressure Risk Score: 44 Most Recent BM Date: 08/23/24 (patient reported) Allergies: Medications: Current Scheduled Medications[4] Meds were reviewed: Yes Labs: Lab Results Component Value Date GLUCOSE 327 (H) 08/24/2024 CALCIUM 8.6 (L) 08/24/2024 NA 128 (L) 08/24/2024 K 4.1 08/24/2024 CO2 27 08/24/2024 CL 90 (L) 08/24/2024 BUN 33 (H) 08/24/2024 CREATININE 1.02 08/24/2024 PHOS 3.2 08/15/2024 MG 1.8 (L) 08/20/2024 HGBA1C 7.9 (H) 08/14/2024 Anthropometrics: Height: 162.6 cm (5' 4 ) Weight: 59.7 kg (131 lb 9.8 oz) BMI (Calculated): 22.58 [place] Body Weight (kg): 54.5 Percent [place] Body Weight: 112 Wt Readings from Last 10 Encounters: 08/24/24 59.7 kg (131 lb 9.8 oz) 08/04/24 63.9 kg (140 lb 14 oz) 08/04/24 61.7 kg (136 lb) 07/30/24 61 kg (134 lb 7.7 oz) 07/21/24 61 kg (134 lb 7.7 oz) 07/15/24 63 kg (138 lb 14.2 oz) 07/08/24 65.2 kg (143 lb 11.8 oz) 07/01/24 63.5 kg (140 lb) 06/16/24 66.2 kg (146 lb) 05/27/24 64.9 kg (143 lb) Estimated Needs: Metabolic Cart Study Results: Current Nutrition Intake: Diet Supplements: None Diet Order: Adult Diet Diet Texture: Regular Adult Carbohydrate Restriction: Consistent CHO 2 (9759-3125 Damon, 80 g/meal) Adult Sodium Restriction: 2,000 mg Na Percent Meals Eaten (%): avg 81% (08/15-08/19) Diet Experience and Nutrition History: Diet Education Provided: Will monitor Pertinent home medications: Reviewed. Religion needs: Nutrition Focused Physical Exam: Unable to Complete Exam: (-) Physical exam performed on (date): 08/24/2024 Temples (muscles): None Clavicle (muscle): None Shoulder (muscle): Mild Interosseous (muscle): None Thigh (muscle): None Calf (muscle): None Orbital (fat): None Triceps (fat): None Assessment of Malnutrition: Malnutrition Identified: No Nutrition Problem: Unintended weight loss related to inadequate energy intake as evidenced by prior BW 146# per pt, current BW 134# as documented. Status of Nutrition Diagnosis: Ongoing Nutrition Interventions and Recommendations: -CC2/2g Na diet -Encourage PO and document daily intakes in flowsheet -Monitor elytes/ glucose Nutrition Monitoring and Goals: -Wt maintenance -Nutrition labs trending WDL -Glycemic control -PO intake >/= 75% most meals Acuity Level: [address], LD [1] Past Medical History: Diagnosis Date 2019-nCoV acute respiratory disease 05/07/2022 Alcohol use Allergic 1973 Anemia Anxiety Arthritis Asthma Cellulitis 02/13/2024 Cellulitis of right leg 02/12/2024 CHF (congestive heart failure) ([facility]) Chronic respiratory failure 2019 Clotting disorder ([facility]) Congenital malformation COPD (chronic obstructive pulmonary disease) ([facility]) 2019 Coronary artery disease CTS (carpal tunnel syndrome) Dental disease Depression Diabetes mellitus type I ([facility]) Disease of thyroid gland Eczema Fracture of [...] or viral conjunctivitis vs. Scleritis. - Needs [facility] eye exam. - Was ableto get patient in with [facility] ophthalmology right after our clinic appointment [...] CARDIAC PACEMAKER PLACEMENT N/A Pacemaker Placement from [employer] CARPAL TUNNEL RELEASE N/A Neuroplasty Decompression Median Nerve At Carpal Tunnel from [employer] CERVICAL BIOPSY W/ LOOP ELECTRODE EXCISION 2010 SECTION, CLASSIC 1976, 1979 SECTION, LOW TRANSVERSE N/A Section from [facility] COLONOSCOPY N/A Complete Colonoscopy from [facility] CORONARY ARTERY BYPASS GRAFT N/A CABG from [facility] EYE SURGERY N/A Eye Surgery from [facility] FRACTURE SURGERY SPINE SURGERY THORACENTESIS TOE SURGERY Left 02/07/2024 hematoma removal of upper skin on L big toe TONSILLECTOMY N/A Tonsillectomy from [facility] [3] Social History Tobacco Use Smoking status: Never Passive exposure: Past (2nd hand smoke) Smokeless tobacco: Never Vaping Use Vaping status: Never Used Substance Use Topics Alcohol use: Yes Alcohol/week: 4.0 standard drinks of alcohol Types: 3 Cans of beer, 1 Shots of liquor per week Comment: Nightly Drug use: Never [4] aspirin, 81 mg, Oral, Daily brimonidine, 1 drop, Both Eyes, Daily cetirizine, 10 mg, Oral, Nightly DULoxetine, 80 mg, Oral, q AM enoxaparin, 40 mg, Subcutaneous, Daily ezetimibe, 10 mg, Oral, Nightly folic acid, 1 mg, Oral, Daily furosemide, 40 mg, Oral, Daily gabapentin, 300 mg, Oral, BID hydroxychloroquine, 200 mg, Oral, Daily insulin glargine-yfgn, 9 Units, Subcutaneous, BID insulin lispro, 0-5 Units, Subcutaneous, TID with meals insulin lispro, 0-3 Units, Subcutaneous, Twice at night Insulin Lispro, 4 Units, Subcutaneous, TID with meals latanoprost, 1 drop, Both Eyes, Nightly levothyroxine, 125 mcg, Oral, q AM magic mouthwash diphen/lido/gwbu-avx-wdvfxk, 15 mL, Swish & Spit, Before meals & nightly metoprolol succinate XL, 25 mg, Oral, Daily Tiotropium [place] Monohydrate, 2 puff, Inhalation, Daily AND mometasone- formoterol, 2 puff, Inhalation, BID mycophenolate, 1,000 mg, Oral, BID [COMPLETED] Insert peripheral IV, , , Once AND [COMPLETED] Saline lock IV, , , Once AND sodium chloride, 10 mL, Intravenous, q12h AND sodium chloride, 10 mL, Intravenous, PRN spironolactone, 12.5 mg, Oral, Daily warfarin, 2.5 mg, Oral, q7 days warfarin, 5 mg, Oral, Once per day on Friday * Progress Notes - Edgar Harris - 08/24/2024 9:22 AM EDT OCCUPATIONAL THERAPY TREATMENT PATIENT DATA Patient Name Doron Felipe Session Date 08/24/2024 OT Discharge Recommendations Home with 24 hour assistance, Outpatient PT (pt reports she has no wayto get to outpatient 2/2 works and daughter who lives across the street is too busy with her kids to take her to outpatient.) Equipment Recommendations Patient owns appropriate equipment PRECAUTIONS Medical Precautions Medical Precautions: Fall precautions HOME LIVING/SET-UP Lives With Spouse Home Type & Layout House One level, Stairs to enter with rails 3 Home Equipment Cane, Rolling walker, Wheelchair-manual (Home O2) Bathroom Layout Walk-in shower, Shower chair, Grab bars, Handheld shower head (in process of renovating shower) Tall (in process of replacing standard with tall toilet) Additional Comments Caregiver 5days/week, 2-5hrs/day PRIOR LEVEL OF FUNCTION Receives help from Spouse, Caregiver Level of Mobility Ambulatory- household only (use of w/c in community) Mobility Cass Independent gait with device History of Falls No ADL Performance Needs assistance Needs assist Independent Independent Independent Independent Independent Needs assist PRESENTATION Lines and Tubes Intravenous access Peripheral IV 08/15/24 Anterior;Left Forearm (Active) Pre-Session Supine, Head of bed elevated, Bed alarm, Lines intact RN cleared pt for therapy. RN consenting to OT treatment. Post-Session Call light in reach, Sitting: edge of bed, Lines intact, RN notified (NO bed alarm 2/2patient seated at EOB; RN aware) Pt positioned for comfort, all needs in reach. All needs met upon close of session. SUBJECTIVE RN approved and pt agreeable to work with occupational therapy. PARTICIPANTS IN CARE Patient/Caregiver Comments RN approved visit and pt agreeable to work with therapy at this time. Visitors Present No OBJECTIVE PAIN Pt reports no pain at rest or during functional task throughout treatment session. DELIRIUM SCREENING Monge Agitation Sedation Scale (RASS): Alert and calm Confusion Assessment Method-ICU (CAM-ICU/PCAM-ICU) Feature 3: Altered Level of Consciousness: Negative COGNITION SCREENING Overall Cognitive Status Within Functional Limits Arousal/Alertness Appropriate responses to stimuli Mood/Behavior Alert Orientation Oriented X4 Command Following Single Step Commands: Consistently Method of Communication Verbal Additional Observations Safety Judgment: Good awareness of safety precautions Awareness of Errors: Good awareness of errors made Deficit Awareness: Fully aware of deficits Attention Span: Appears intact OT INTERVENTIONS THERAPEUTIC ACTIVITY Treatment Minutes 9 Interventions Therapist engaged patient in bed mobility, scooting to edge of surface, sitting balance and energy for task to support ADLs at edge of surface, static standing , and dynamic standing task to monitor and challenge functional endurance to increase b/l LE strength, cardiovascular & muscular endurance while working to improve activity tolerance and functional mobility in prep for higher level ADL participation. Pt presents with decreased energy for task, balance, LE strength & endurance, and decreased postural strength as major barriers leading decreased mobility and higherlevel ADL participation. (See section above for details) THERAPEUTIC EXERCISE Treatment Minutes 5 Interventions OT engaged patient in a review of of UE HEP w/patient demonstration of each exercise requiring minimal verbal and tactile assist, provided rest breaks between each set 2/2 fatigue to assess for proper technique including shoulder forward flexion, shoulder abduction, shoulder internal & external rotation, elbow flex/ext and forward punches for :30 seconds. In addition patient engaged in neck rotation stretch, chin/head retraction with 3 sec hold, scapular retraction and depression with 3 sec hold to assist with forward progression of shoulders and head. BED MOBILITY Level of Cass Rolling/Turning Modified independence Scooting/Bridging Modified independence Supine to Sit Modified Cass Sit to Supine Modified independence TRANSFERS Level of Cass Physical/Non-physical Assist AE Sit to Stand Stand-by assist Set-up required, Verbal Cues, Nonverbal cues (demo/gestures) pt required cues for hand positioning to push off from surface and to get their nose over their toes prior tostanding. Walker, rolling Stand to sit Stand-by assist Set-up required, Verbal Cues, Nonverbal cues (demo/gestures) pt required verbal cues for proximity to sitting surface to feel for surface on back of legs, hand positioning to reach back to feel for surface/handrail prior to sitting and for slow decent to sitting surface. Walker, rolling BALANCE pt was able to sit @ EOB statically & dynamically (see above for assist levels) to engage in ADL task, lower back stretching, postural exercises and functional reaching task to challenge core/trunk strength & stability as well as energy for task in prep for increased higher level ADL independence. Postural Appearance Posture: Stooped posture, Forward head, Weight shift posterior to midline Level of Cass Balance Support Interventions Static Sit Standby assist Feet supported, Right upper extremity support, Left upper extremity support pt provided cues for postural alignment to engage upper and lower back muscles to provide a more stable and upright sitting posture and therapist assisted with line management during task. . Dynamic Sit Standby assisst Feet supported Therapist provided patient with postural cues and stretching of low back to increase upright sitting posture, Therapist engaged patient in ADL engagement including grooming and dressing task, pt engaged in b/l UE therex Static Stand Contact guard Right upper extremity support, Left upper extremity support (rolling walker) Pt provided time to assess potential lightheadedness and dizziness upon standing, then requiredcues for postural alignment to achieve full upright standing posture prior to taking steps forward toward hallway. Dynamic Stand Contact guard for ~ 100 feet w/RW Right upper extremity support, Left upper extremitysupport (rolling walker) Lateral weight shifts, Anterior/Posterior weight shifts, Reaching for objects Therapist provided patient with verbal cues for eye gaze/head positioning, postural alignment, body proximity to RW , and unable to take steps for a household distance without requiring SEATED rest break 2/2 decreased b/l LE ENERGY FOR TASK SELF-CARE Treatment Minutes (if applicable) 10 Comments Therapist encouraged patient to engage in all ADL task (grooming, dressing and Toileting) within their given ability to promote continual b/l UE strengthening and continue to progress to ADLindependence. Pt verbalized understanding. Level of Cass Interventions Feeding Independent, Setup Edge of bed Grooming SBA, Setup Edge of bed to wash face Upper Body Dressing Setup, Contact guard Edge of bed Pt required physical assist and verbal cues towrap hospital gown around patient and then to assist with guiding patients arm through sleeves to don hospital gown as bathrobe. Lower Body Dressing Sock Level of Assistance: Setup, Close supervision Shoe Level of Assistance: Setup, Close supervision, Distant supervision Pt using cross-legged/hip external rotation technique with verbal cues for proper technique ASSESSMENT Pt engaged in skilled occupational therapy treatment session, pt demonstrated decreased activity tolerance/functional endurance, anxiety toward mobility limiting patients functional performance, decreased postural/trunk strength, decreased LE strength & endurance (from baseline per patient report), and decrease balance & mobility. Pt will CONTINUE to benefit from skilled occupational therapy while in hospital to address deficits. Continue POC. OT RECOMMENDATIONS Discharge Destination Home with 24 hour assistance, Outpatient PT Discharge Equipment Patient owns appropriate equipment PLAN Continue with established OT plan of care 2 - 5 times per week to progress towards OT goals. OT GOALS OT GOAL DETAILS Goal Established Date Time Frame Goal Status OT Goal 1: Patient will complete functional ambulation to toilet and all toileting tasks with modified independence and LRAD. 08/16/24 2 weeks OT Goal 2: Patient will complete full body dressing with modified independence. 08/16/24 2 weeks OT Goal 3: Patietn will complete 3-step grooming routine while standing sinkside with modified independence. 08/16/24 2 weeks Post treatment OT educated medical staffing coordinator on patient ADL assist requirements, physical assist levels required, specialized techniques required for transfers, patients current pain levels upon conclusion ofsession, patients demeanor and overall performance with therapy. Therapist then answered all question RN and RN tech staff had. Written by Edgar Harris on 08/24/24 * Progress Notes - Yvonne Carballo PharmD - 08/24/2024 9:09 AM EDT Antithrombosis Stewardship Pharmacist to Dose Warfarin Management Doron Felipe is a 74 y.o. female who has been consulted for warfarin dosing and monitoring. Current Hematologic Labs INR (no units) Date/Time Value 08/24/2024 0343 1.3 (H) HGB (g/dL) Date/Time Value 08/17/2024 0428 10.1 (L) HCT (%) Date/Time Value 08/17/2024 0428 32.2 (L) Platelet Count (10*3/uL) Date/Time Value 08/17/2024 0428 396 (H) Subjective Warfarin Indication: Atrial fibrillation;Left Ventricular Thrombus Target INR: 2-3 Warfarin Prior to Admission: Yes Prior to Admission Daily Warfarin Regimen: 5mg daily, except on Tuesdays 2.5 mg Assessment Warfarin Sensitivity Risk Factors: Elderly, age > 65;Chronic liver, renal, or thyroid disease Today's INR : Subtherapeutic Plan Warfarin Plan: Continue current dose Specify Warfarin Dose: 5 mg daily, except 2.5 mg on Tuesdays Reason For Holding Warfarin: (resumed 08/20) Bridging Agent in Conjunction With Warfarin? : No Patient Education : Complete and documented - Trending up slowly as expected, full effect on INR anticipated in 2-4 days Yvonne Carballo PharmD, BCPS Internal Medicine Clinical Pharmacist * Care Plan - Marilee Fabian RN - 08/23/2024 6:37 PM EDT Problem: Adult Inpatient Plan of Care Goal: Plan of Care Review Outcome: Ongoing, Progressing Flowsheets (Taken 08/23/2024 1837) Progress: no change Goal: Patient-Specific Goal (Individualized) Outcome: Ongoing, Progressing Goal: Absence of Hospital-Acquired Illness or Injury Outcome: Ongoing, Progressing Goal: Optimal Comfort and Wellbeing Outcome: Ongoing, Progressing Goal: Readiness for Transition of Care Outcome: Ongoing, Progressing Problem: Mobility Impairment Goal: Optimal Mobility Outcome: Ongoing, Progressing Problem: Infection Goal: Absence of Infection Signs and Symptoms Outcome: Ongoing, Progressing Problem: Diabetes Goal: Optimal Coping Outcome: Ongoing, Progressing Goal: Optimal Functional Ability Outcome: Ongoing, Progressing Goal: Blood Glucose Level Within Target Range Outcome: Ongoing, Progressing Goal: Minimize Hypoglycemia Risk Outcome: Ongoing, Progressing Problem: Gas Exchange Impaired Goal: Optimal Gas Exchange Outcome: Ongoing, Progressing * Progress Notes - Boby Rouse APRN - 08/23/2024 1:48 PM EDT Subjective No acute distress. No new complaints. <50ml output from right chest tube overnight. <100ml output yesterday. Point of care ultrasound performed today revealed: 2cm right loculated pleural effusion posterior to mid axilla. Right chest tube removed. Discussed plan for follow up in clinic. Review of Systems Constitutional: Negative for chills. HENT: Negative for sore throat. Eyes: Negative for visual disturbance. Respiratory: Negative for cough. Baseline dyspnea Cardiovascular: Negative for chest pain, palpitations and leg swelling. Gastrointestinal: Negative for abdominal pain, nausea and vomiting. Neurological: Negative for headaches. Hematological: Does not bruise/bleed easily. Psychiatric/Behavioral: Negative for confusion. Objective Vitals Temp: [36.3 ??C (97.3 ??F)-37 ??C (98.6 ??F)] 36.7 ??C (98 ??F) Heart Rate: [55-61] 55 Resp: [16-18] 18 BP: (101-134)/(56-77) 101/60 Physical Exam Constitutional: Appearance: She is not ill-appearing, toxic-appearing or diaphoretic. HENT: Head: Normocephalic and atraumatic. Right Ear: External ear normal. Left Ear: External ear normal. Nose: Nose normal. Mouth/Throat: Mouth: Mucous membranes are moist. Pharynx: Oropharynx is clear. Eyes: General: No scleral icterus. Extraocular Movements: Extraocular movements intact. Cardiovascular: Rate and Rhythm: Normal rate. Pulses: Normal pulses. Pulmonary: Effort: Pulmonary effort is normal. No tachypnea, accessory muscle usage or respiratory distress. Comments: Right chest tube with no air leak Chest: Chest wall: No crepitus. Abdominal: General: There is no distension. Palpations: Abdomen is soft. Musculoskeletal: Cervical back: Normal range of motion and neck supple. Right lower leg: No edema. Left lower leg: No edema. Skin: General: Skin is warm and dry. Capillary Refill: Capillary refill takes less than 2 seconds. Coloration: Skin is not jaundiced. Neurological: Mental Status: She is alert and oriented to person, place, and time. Mental status is at baseline. Psychiatric: Mood and Affect: Mood normal. Behavior: Behavior normal. Assessment & Plan Doron Felipe is a 74 year old female life long non-smoker with a past medical history of SLE, HFpEF, A-fib, DM1, and CAD. She presented to on 08/14/2024 via emergency room with dyspnea. Interventional Pulmonology was consulted by Hospital Medicine regarding pleural effusion . # Right Pleural Effusion - Less likely related to SLE given transudate x2. - More likely related to HFpEF and/or pulmonary hypertension related - Status post talc slurry chemical pleurodesis 08/19/2024. Right chest tube removed 08/23/2024. Output down trended prior to removal. Tiny remaining pleural effusion on POCUS with good lung expansion. Suspect chemcail pleurodesis at least partially successful - suspect that Chest x-ray findings overestimate effusion size and represent atelectasis. # Left Pleural Effusion - Etiology of this left side SLE. - Status post pleuroscopy and pleural biopsy with chemical (iodine) pleurodesis 11/2022 with markedimprovement in pleural effusion. Had a left tunneled pleural cathter which was removed 01/2023. - Left pleural biopsy showed CHRONIC ORGANIZING PLEURITIS WITH FOCAL REACTIVE MESOTHELIUM AND HEMOSIDERIN-LADEN MACROPHAGES - Left fluid studies lymphoctic exudate with negative micro and cytology. Plan: - Remove right chest tube today. Follow up chest x-ray. - Arrange follow up General Pulmonology (Dr. Shoemaker) - fellows clinic in ~2 weeks. - Change dressing prn and remove sutures 1-2 week. This patient and plan of care has been discussed with Dr. Edward Bojorquez. Interventional Pulmonology will sign off at this time. Please contact again as needed. Boby Rouse APRN Pager: [phone] * Progress Notes - Tk Hale - 08/23/2024 12:14 PM EDT Images from the original note were not included. Hospital Medicine Progress Note Subjective Length of stay: 9 days Brief Patient Summary: Doron Felipe is a 74-year-old woman with a PMH significant for SLE on Plaquenil followed by [facility], chronic bl pleural effusions, chronic hypoxic respiratory failure requiring 2-4 L/min at baseline, DM, hypothyroidism, HFpEF, and pacemaker who presented to the ED for progressively worsening shortness for breath. Subjective NAEON. Says she feels pretty good today, and is ready to get chest tube out and get out of the hospital. Breathing is doing well. Continues to urinate well. Diarrhea resolved. No other acute concerns. Review of Systems Review of Systems All other systems reviewed and are negative. Objective Objective Last Recorded Vitals Blood pressure 101/60, pulse 55, temperature 36.7 ??C (98 ??F), temperature source Oral, resp. rate18, height 1.626 m (5' 4 ), weight 56.6 kg (124 lb 12.5 oz), SpO2 96%. Physical Exam Constitutional: General: She is not in acute distress. HENT: Nose: Comments: Nasal cannula in Mouth/Throat: Mouth: Mucous membranes are moist. Cardiovascular: Rate and Rhythm: Normal rate. Pulses: Normal pulses. Pulmonary: Effort: Pulmonary effort is normal. Comments: Improved lung aeration, decreased breath sounds at right lung base R sided chest tube in Abdominal: General: Abdomen is flat. Palpations: Abdomen is soft. Tenderness: There is no abdominal tenderness. Musculoskeletal: Right lower leg: No edema. Left lower leg: No edema. Skin: General: Skin is warm. Neurological: Mental Status: She is alert and oriented to person, place, and time. Relevant Results Labs in last 18 hours CBC WBC ?? Hb ?? Plt ?? Hct ?? ANC ?? INR 1.1, PTT ??, Anti-Xa ?? BMP Na 128 (L) Cl 90 (L) BUN 28 (H) Glu 250 (H) K 4.2 Co2 31 (H) Cr 1.05 Ca 9.0 iCa ?? Mg ??, Phos ?? Lactate ?? LFT AST ?? AlkPhos ?? T Prot ?? ALK ?? Bili ?? Alb ?? D.Bili ?? Assessment/Plan Assessment & Plan Principal Problem: Acute on chronic hypoxic respiratory failure Active Problems: Type 1 diabetes mellitus with other specified complication (CMS/HCC) Acquired hypothyroidism SLE (systemic lupus erythematosus) (CMS/HCC) Pleural effusion Presence of cardiac pacemaker Heart failure with preserved ejection fraction (CMS/HCC) Atrial fibrillation (CMS/HCC) Acute on chronic congestive heart failure (CMS/HCC) Doron Felipe is a 74-year-old woman with recurrent pleural effusions, most likely associated with her Lupus and HF. She requires therapeutic thoracentesis periodically, and has had about 4 in the past. She is on a diuretic regimen supervised by Cardiology in the setting of her ischemic heart disease and HFpEF. She has chronic hypoxic respiratory failure requiring oxygen per nasal cannula at 2-4 L/min and had worsening O2 requirement recently, with a recent chest tube draining fluid and right sided pleurodesis. Today: - Hold Lasix - Hold bessie - I/Os - Oxygen as needed/tolerated - Pulm IR for chest tube assessment and removal - Increase insulin glargine to 9u BID - Repeat BMP in evening and AM Acute: #Acute on chronic hypoxic respiratory failure secondary to pleural effusions iso SLE vs. HFpEF Pleural effusion: chronic since 2020 Has required multiple hospitalizations: -She is status post left pleuroscopy, pleural biopsy, PleurX placement and chemical pleurodesis 11/19/2022. - Chest tube placed 08/17/24 per Pulm IR, fluid consistent with transudate - Pleurodesis done with pulm IR 08/19/24 - Sodium 128 today, patient likely dehydrated with component of pseudohyponatremia from hyperglycemia Plan: - Hold Lasix 40 mg PO daily, continue holding bessie - IR pulm following; pleural fluid studies collected - chest tube out today -continue Plaquenil which is part of her SLE chronic management. - consulted cardiology; appreciate recommendations. Will continue with PO lasix and bessie once sodium corrected - Outpatient follow up with Pulm in 2 weeks #Loose stool, resolved - discontinue magnesium oxide #Hypokalemia, Hypomagnesemia - Replete as needed. #Acute hyponatremia #Pseudohyponatremia #Contraction Alkalosis - Na 125 on 08/20 -> 131 on 08/21 with tighter glucose control. Likely due to dehydration and psuedohyponatremia iso hyperglycemia - suspect hypovolemic due to aggressive diuresis and pseudohyponatremia from hyperglycemia - Sodium 138, glucose 101 on BMP -> sodium 128 and glucose 250 on BMP (corrected sodium 130) - Bicarb 31 - Monitor electrolytes and I/Os closely - Repeat BMP #Acute exacerbation of heart failure with preserved ejection fraction: Follows with Cardiology as an outpatient. May be contributing to the worsening effusions and volumestatus. -had echocardiogram 1 month ago. Demonstrated diastolic dysfunction with preserved LVEF. - RHC demonstrating increased pulmonary pressure Plan: - Hold 40 mg PO Lasix daily, hold bessie today -Continue metoprolol. - Not a candidate for SGLT2i due to DM1 - low-sodium diet - measure daily weights - Outpatient cardiology follow up Chronic: #Systemic lupus erythematosus: - on Plaquenil and followed by Rheum - continue mycophenolate -no clinical signs of acute lupus flare #Atrial fibrillation: -she is on warfarin chronically and has a pacemaker device. Failed apixaban. - Resumed Warfarin, monitoring INR Hypothyroidism: -continue levothyroxine Diabetes mellitus type 1: - Increase glargine to 9u nightly and 9u in AM - continue SSI and mealtimes, with tight control - continue glucose monitoring Fluids: PO DVT Ppx: PLOV Diet: Regular diet 2g Na, low carbs Code status: Full Code Discharge Planning: Anticipated discharge to: Home Anticipated discharge needs: None Family Contact: Ruthie Jamil John Madyson Hernandes Follow-up: PCP Cardiology Pulmonology Rheumatology Endocrinology Future Appointments Date Time Provider Department Center 09/08/2024 11:20 AM Alisa Kunz, DO [facility] 10/07/2024 4:00 PM [facility] 10/14/2024 4:00 PM [facility] 10/27/2024 1:40 PM Anne-Marie Kolb, PRECISION LATHE OPERATOR [facility] [place] 11/29/2024 10:20 AM Alisa Kunz, [facility] 02/02/2025 10:30 AM [facility] MS[facility] Cosigned by Kenneth James MD at 08/23/2024 5:58 PM EDT Associated attestation - Kenneth James MD - 08/23/2024 5:58 PM EDT I saw and evaluated the patient with the medical/INFORMATICS NURSE SPECIALIST/PA student. I discussed the case with the medical/INFORMATICS NURSE SPECIALIST/PA student and agree with the findings and plan as documented. I personally performed the Examand Medical Decision Making. Will likely need lower doses of lasix on discharge given lasix didn't help her effusion as much. Discussed at length with her that the effusion may continue to come back and she may require thoracentesis. * Progress Notes - Nathan Lima - 08/23/2024 9:05 AM EDT Case Management Adult Progress Note Doron Felipe 74 y.o. female CSN: [id number] Admission: 08/14/2024 3:16 PM Primary Problem: Acute on chronic hypoxic respiratory failure Anticipated Discharge Date: TBD Plan of care reviewed with pt's care team; and per MD, pt is not medically ready for discharge due to Chest tube in place and Monitor Sodium. MD reported that they would continue plaquenil which is part of pt SLE Chronic Management. MD reported that Chest tube would likely be removed on 08/23/2024. PT/OT is recommending HH PT/OT, SW [facility]. SW will continue to follow-up with pt's MD and care team on their progress and discharge plan. Nathan Lima MSW, DIRECTOR OF RESIDENCE LIFE * Progress Notes - Yvonne Carballo PharmD - 08/23/2024 8:37 AM EDT Antithrombosis Stewardship Pharmacist to Dose Warfarin Management Doron Felipe is a 74 y.o. female who has been consulted for warfarin dosing and monitoring. Current Hematologic Labs INR (no units) Date/Time Value 08/23/2024 0319 1.1 HGB (g/dL) Date/Time Value 08/17/2024 0428 10.1 (L) HCT (%) Date/Time Value 08/17/2024 0428 32.2 (L) Platelet Count (10*3/uL) Date/Time Value 08/17/2024 0428 396 (H) Subjective Warfarin Indication: Atrial fibrillation;Left Ventricular Thrombus Target INR: 2-3 Warfarin Prior to Admission: Yes Prior to Admission Daily Warfarin Regimen: 5mg daily, except on Tuesdays 2.5 mg Assessment Warfarin Sensitivity Risk Factors: Elderly, age > 65;Chronic liver, renal, or thyroid disease Today's INR : Subtherapeutic Plan Warfarin Plan: Continue current dose Specify Warfarin Dose: 5 mg daily, except 2.5 mg on Tuesdays Reason For Holding Warfarin: (resumed 08/20) Bridging Agent in Conjunction With Warfarin? : No Patient Education : Complete and documented - Expect to see full effect on INR in 3-5 days Yvonne Carballo PharmD, [facility] Internal Medicine Clinical Pharmacist * Care Plan - Puja Le RN - 08/23/2024 6:44 AM EDT Problem: Adult Inpatient Plan of Care Goal: Plan of Care Review Outcome: Ongoing, Progressing Flowsheets (Taken 08/23/2024 0644) Progress: improving Plan of Care Reviewed With: patient Goal: Patient-Specific Goal (Individualized) Outcome: Ongoing, Progressing Flowsheets (Taken 08/22/20241999) Patient/Family-Specific Goals (Include Timeframe): Patient will remain free from falls tonight Individualized Care Needs: safety Anxieties, Fears or Concerns: Wants to go home. Upset that insulin orders are not the same as at home. Goal: Absence of Hospital-Acquired Illness or Injury Outcome: Ongoing, Progressing Goal: Optimal Comfort and Wellbeing Outcome: Ongoing, Progressing Goal: Readiness for Transition of Care Outcome: Ongoing, Progressing * Care Plan - Kosta Dugan RN - 08/22/2024 5:20 PM EDT Problem: Adult Inpatient Plan of Care Goal: Plan of Care Review Outcome: Ongoing, Progressing Goal: Patient-Specific Goal (Individualized) Outcome: Ongoing, Progressing Goal: Absence of Hospital-Acquired Illness or Injury Outcome: Ongoing, Progressing Goal: Optimal Comfort and Wellbeing Outcome: Ongoing, Progressing Goal: Readiness for Transition of Care Outcome: Ongoing, Progressing Problem: Mobility Impairment Goal: Optimal Mobility Outcome: Ongoing, Progressing Problem: Infection Goal: Absence of Infection Signs and Symptoms Outcome: Ongoing, Progressing Problem: Diabetes Goal: Optimal Coping Outcome: Ongoing, Progressing Goal: Optimal Functional Ability Outcome: Ongoing, Progressing Goal: Blood Glucose Level Within Target Range Outcome: Ongoing, Progressing Goal: Minimize Hypoglycemia Risk Outcome: Ongoing, Progressing Problem: Gas Exchange Impaired Goal: Optimal Gas Exchange Outcome: Ongoing, Progressing * Care Plan - Barbara Calero MD - 08/22/2024 4:29 PM EDT Patient chart reviewed and seen at bedside yesterday and today, case discussed with Dr. Júnior Johnson both days. She has evidence of partial re-accumulation of right pleural effusion on CXR this weekend, with increased output of 380cc yesterday (40cc of saline instilled by me at bedside yesterday when flushing.) I discussed with her that the chemical pleurodesis does not appear to have completely closed down the pleural space, but may have been partially successful and might prevent the effusion from expanding as large as it has in the past. In the meantime we decided to leave the chest tube in place to suction in order to assess how much daily output there will be. It is possible that the partially successful chemical pleurodesis will prevent this effusion from expanding a size that will cause her significant symptoms, and she may be able to have the chest tuberemoved and be ready for discharge from a pulmonary standpoint early this week. But we will need more time to assess this further. Recommend continuing the chest tube to -20 suction, and repeat CXR in AM. IP will continue to follow this patient this week and make further recommendations. Barbara Calero MD Pulmonary & Critical Care Fellow PGY5 * Progress Notes - Tk Hale - 08/22/2024 10:34 AM EDT Images from the original note were not included. Hospital Medicine Progress Note Subjective Length of stay: 8 days Brief Patient Summary: Doron Felipe is a 74-year-old woman with a PMH significant for SLE on Plaquenil followed by Sarai, chronic bl pleural effusions, chronic hypoxic respiratory failure requiring 2-4 L/min at baseline, DM, hypothyroidism, HFpEF, and pacemaker who presented to the ED for progressively worsening shortness for breath. Subjective NAEON. Patient experiencing diarrhea this morning associated with some nausea. Says she had been constipated for a few days, and now has diarrhea. This has happened many times in the past. Breathing is doing well. Is hoping to get the chest tube out tomorrow and go home soon. No other acute concerns. Review of Systems Review of Systems All other systems reviewed and are negative. Objective Objective Last Recorded Vitals Blood pressure (!) 165/77, pulse 59, temperature 36.7 ??C (98 ??F), temperature source Oral, resp. rate 18, height 1.626 m (5' 4 ), weight 56.7 kg (125 lb), SpO2 98%. Physical Exam Constitutional: General: She is not in acute distress. HENT: Nose: Comments: Nasal cannula in Mouth/Throat: Mouth: Mucous membranes are moist. Cardiovascular: Rate and Rhythm: Normal rate. Pulses: Normal pulses. Pulmonary: Effort: Pulmonary effort is normal. Comments: Improved lung aeration R sided chest tube in Abdominal: General: Abdomen is flat. Palpations: Abdomen is soft. Tenderness: There is no abdominal tenderness. Musculoskeletal: Right lower leg: No edema. Left lower leg: No edema. Skin: General: Skin is warm. Neurological: Mental Status: She is alert and oriented to person, place, and time. Relevant Results Labs in last 18 hours CBC WBC ?? Hb ?? Plt ?? Hct ?? ANC ?? INR 1.1, PTT ??, Anti-Xa ?? BMP Na 127 (L) Cl 88 (L) BUN 30 (H) Glu 276 (H) K 4.4 Co2 25 Cr 0.94 Ca 9.3 iCa ?? Mg ??, Phos ?? Lactate ?? LFT AST ?? AlkPhos ?? T Prot ?? ALK ?? Bili ?? Alb ?? D.Bili ?? Assessment/Plan Assessment & Plan Principal Problem: Acute on chronic hypoxic respiratory failure Active Problems: Type 1 diabetes mellitus with other specified complication (CMS/HCC) Acquired hypothyroidism SLE (systemic lupus erythematosus) (CMS/HCC) Pleural effusion Presence of cardiac pacemaker Heart failure with preserved ejection fraction (CMS/HCC) Atrial fibrillation (CMS/HCC) Acute on chronic congestive heart failure (CMS/HCC) Doron Felipe is a 74-year-old woman with recurrent pleural effusions, most likely associated with her Lupus and HF. She requires therapeutic thoracentesis periodically, and has had about 4 in the past. She is on a diuretic regimen supervised by Cardiology in the setting of her ischemic heart disease and HFpEF. She has chronic hypoxic respiratory failure requiring oxygen per nasal cannula at 2-4 L/min and had worsening O2 requirement recently, with a recent chest tube draining fluid and right sided pleurodesis. Today: - Resume Lasix 40 mg PO daily - Hold bessie for today, resume tomorrow - I/Os - Oxygen as needed/tolerated - Monitor chest tube output, likely out tomorrow - Discontinue mag oxide, give zofran - Repeat BMP in evening and AM Acute: #Acute on chronic hypoxic respiratory failure secondary to pleural effusions iso SLE vs. HFpEF Pleural effusion: chronic since 2020 Has required multiple hospitalizations: -She is status post left pleuroscopy, pleural biopsy, PleurX placement and chemical pleurodesis 11/19/2022. - Chest tube placed 08/17/24 per Pulm IR - Pleurodesis done with pulm IR 08/19/24 - Sodium 127 today, patient likely dehydrated with component of dilutional hyperglycemia Plan: - Resume Lasix 40 mg PO daily, continue holding bessie - Monitor chest tube output; pulm following; pleural fluid studies collected - likely remove tomorrow -continue Plaquenil which is part of her SLE chronic management. - consulted cardiology; appreciate recommendations. Will continue with PO lasix and bessie once sodium corrected #Loose stool - discontinue magnesium oxide #Hypokalemia, Hypomagnesemia - Replete as needed. Given Mag oxide today #Acute hyponatremia #Pseudohyponatremia - Na 125 on 08/20 -> 131 on 08/21 with tighter glucose control. Likely due to dehydration and psuedohyponatremia iso hyperglycemia - suspect hypovolemic due to aggressive diuresis - Monitor electrolytes and I/Os closely - Repeat BMP #Acute exacerbation of heart failure with preserved ejection fraction: Follows with Cardiology as an outpatient. May be contributing to the worsening effusions and volumestatus. -had echocardiogram 1 month ago. Demonstrated diastolic dysfunction with preserved LVEF. - RHC demonstrating increased pulmonary pressure Plan: -Resume 40 mg PO Lasix daily, hold bessie today likely restart tomorrow at 12.5 mg daily -Continue metoprolol. - Not a candidate for SGLT2i due to DM1 - low-sodium diet - measure daily weights - Outpatient cardiology follow up Chronic: #Systemic lupus erythematosus: - on Plaquenil and followed by Rheum - continue mycophenolate -no clinical signs of acute lupus flare #Atrial fibrillation: -she is on warfarin chronically and has a pacemaker device. Failed apixaban. - Resumed Warfarin, monitoring INR Hypothyroidism: -continue levothyroxine Diabetes mellitus type 1: - Continue glargine to 7u nightly and 7u in AM - continue SSI and mealtimes, with tight control - continue glucose monitoring Fluids: PO DVT Ppx: PLOV Diet: Regular diet 2g Na, low carbs Code status: Full Code Discharge Planning: Anticipated discharge to: Home Anticipated discharge needs: None Family Contact: Ruthie Jamil John Madyson Hernandes Follow-up: PCP Cardiology Pulmonology Rheumatology Endocrinology Future Appointments Date Time Provider Department Center 09/08/2024 11:20 AM Alisa Kunz, [facility] 10/07/2024 4:00 PM [facility] 10/14/2024 4:00 PM Lavern Shoemaker MD [facility] 10/27/2024 1:40 PM Anne-Marie Kolb APRN [facility]OT[facility]BN[facility] 11/29/2024 10:20 AM Alisa Kunz DO [facility] 02/02/2025 10:30 AM Sadiq Osborne MBBS [facility] Tk Hale, MS4 Cosigned by Kenneth James MD at 08/22/2024 3:48 PM EDT Associated attestation - Kenneth James MD - 08/22/2024 3:48 PM EDT I saw and evaluated the patient with the medical/INFORMATICS NURSE SPECIALIST/PA student. I discussed the case with the medical/INFORMATICS NURSE SPECIALIST/PA student and agree with the findings and plan as documented. I personally performed the Examand Medical Decision Making. * Progress Notes - Yvonne Carballo, PharmD - 08/22/2024 7:39 AM EDT Antithrombosis Stewardship Pharmacist to Dose Warfarin Management Doron Felipe is a 74 y.o. female who has been consulted for warfarin dosing and monitoring. Current Hematologic Labs INR (no units) Date/Time Value 08/22/2024 0601 1.1 HGB (g/dL) Date/Time Value 08/17/2024 0428 10.1 (L) HCT (%) Date/Time Value 08/17/2024 0428 32.2 (L) Platelet Count (10*3/uL) Date/Time Value 08/17/2024 0428 396 (H) Subjective Warfarin Indication: Atrial fibrillation;Left Ventricular Thrombus Target INR: 2-3 Warfarin Prior to Admission: Yes Prior to Admission Daily Warfarin Regimen: 5mg daily, except on Tuesdays 2.5 mg Assessment Warfarin Sensitivity Risk Factors: Elderly, age > 65;Chronic liver, renal, or thyroid disease Today's INR : Subtherapeutic Plan Warfarin Plan: Continue current dose Specify Warfarin Dose: 5 mg daily, except 2.5 mg on Tuesdays Reason For Holding Warfarin: (resumed 08/20) Bridging Agent in Conjunction With Warfarin? : No Patient Education : Complete and documented - Expect to see full effect on INR in 3-5 days Yvonne Carballo PharmD, [facility] Internal Medicine Clinical Pharmacist * Care Plan - Mary Hopper RN - 08/22/2024 1:55 AM EDT Problem: Adult Inpatient Plan of Care Goal: Plan of Care Review Outcome: Ongoing, Progressing Goal: Patient-Specific Goal (Individualized) Outcome: Ongoing, Progressing Goal: Absence of Hospital-Acquired Illness or Injury Outcome: Ongoing, Progressing Goal: Optimal Comfort and Wellbeing Outcome: Ongoing, Progressing Goal: Readiness for Transition of Care Outcome: Ongoing, Progressing Problem: Mobility Impairment Goal: Optimal Mobility Outcome: Ongoing, Progressing Problem: Infection Goal: Absence of Infection Signs and Symptoms Outcome: Ongoing, Progressing Problem: Diabetes Goal: Optimal Coping Outcome: Ongoing, Progressing Goal: Optimal Functional Ability Outcome: Ongoing, Progressing Goal: Blood Glucose Level Within Target Range Outcome: Ongoing, Progressing Goal: Minimize Hypoglycemia Risk Outcome: Ongoing, Progressing Problem: Gas Exchange Impaired Goal: Optimal Gas Exchange Outcome: Ongoing, Progressing * Care Plan - Kosta Dugan RN - 08/21/2024 6:24 PM EDT Problem: Adult Inpatient Plan of Care Goal: Plan of Care Review Outcome: Ongoing, Progressing Goal: Patient-Specific Goal (Individualized) Outcome: Ongoing, Progressing Goal: Absence of Hospital-Acquired Illness or Injury Outcome: Ongoing, Progressing Goal: Optimal Comfort and Wellbeing Outcome: Ongoing, Progressing Goal: Readiness for Transition of Care Outcome: Ongoing, Progressing Problem: Mobility Impairment Goal: Optimal Mobility Outcome: Ongoing, Progressing Problem: Infection Goal: Absence of Infection Signs and Symptoms Outcome: Ongoing, Progressing Problem: Diabetes Goal: Optimal Coping Outcome: Ongoing, Progressing Goal: Optimal Functional Ability Outcome: Ongoing, Progressing Goal: Blood Glucose Level Within Target Range Outcome: Ongoing, Progressing Goal: Minimize Hypoglycemia Risk Outcome: Ongoing, Progressing * Consults - Ruthie Perkins RN - 08/21/2024 5:40 PM EDT Labs collected from left AC. Tubes labeled and handed to RN. * Progress Notes - Kenneth James MD - 08/21/2024 8:30 AM EDT Subjective Patient seen and examined, no new complains. Said that she is ready for the chest tube to come out and for her to go home. Review of Systems Constitutional: Negative for fever. Respiratory: Negative for shortness of breath. Cardiovascular: Negative for chest pain. Objective Vitals Temp: [36.5 ??C (97.7 ??F)-37.6 ??C (99.7 ??F)] 36.9 ??C (98.4 ??F) Heart Rate: [60-63] 61 Resp: [17] 17 BP: (129-166)/(56-73) 137/56 Physical Exam Constitutional: Appearance: Normal appearance. HENT: Mouth/Throat: Mouth: Mucous membranes are moist. Eyes: Conjunctiva/sclera: Conjunctivae normal. Cardiovascular: Rate and Rhythm: Normal rate and regular rhythm. Heart sounds: Normal heart sounds. Pulmonary: Effort: Pulmonary effort is normal. Comments: Diminished at the bases, chest tube on the right side. Abdominal: General: Bowel sounds are normal. Palpations: Abdomen is soft. Musculoskeletal: Cervical back: Neck supple. Skin: General: Skin is warm and dry. Neurological: Mental Status: She is alert. Mental status is at baseline. Psychiatric: Mood and Affect: Mood normal. Behavior: Behavior normal. Assessment & Plan Acute on chronic hypoxic respiratory failure Pleural effusion Atrial fibrillation (CMS/HCC) Heart failure with preserved ejection fraction (CMS/HCC) SLE (systemic lupus erythematosus) (CMS/HCC) Presence of cardiac pacemaker Acquired hypothyroidism Type 1 diabetes mellitus with other specified complication (CMS/HCC) Acute on chronic congestive heart failure (CMS/HCC) Doron Felipe is a 74-year-old woman with recurrent pleural effusions, most likely associated with her Lupus and HF who presented with worsening oxygen requirements was treated for HF exacerbation, got chest tube placement and pleurodesis. #Acute on chronic hypoxic respiratory failure secondary to pleural effusions iso SLE vs. HFpEF Pleural effusion: chronic since 2020 Has required multiple hospitalizations: -She is status post left pleuroscopy, pleural biopsy, PleurX placement and chemical pleurodesis 11/19/2022. - Chest tube placed 08/17/24 per Pulm IR, Pleural fluid studies consistent with transudate, culturesnegative - Pleurodesis done with pulm IR 08/19/24 - CXR on 08/21 with worsening effusion Plan: - holding diuretics due to hyponatremia -continue Plaquenil which is part of her SLE chronic management. - On 08/21 - given worsening effusion pulmonary decided to leave the chest tube in on -20 suction tand repeat CXR tomorrow morning #Hypokalemia, Hypomagnesemia - Replete as needed. Given Mag oxide today #Acute hyponatremia - Na 125 on 08/20 and , some component of pseudohyponatremia due to hyperglycemia, corrected sodium on 08/21 - 130 - suspect hypovolemic due to aggressive diuresis - given no improvement with holding diuretics, will give 500 ml LR bolus #Acute exacerbation of heart failure with preserved ejection fraction: Follows with Cardiology as an outpatient. May be contributing to the worsening effusions and volumestatus. -had echocardiogram 1 month ago. Demonstrated diastolic dysfunction with preserved LVEF. - RHC demonstrating increased pulmonary pressure Plan: - holding diuretics due to hyponatremia -Continue metoprolol. - Not a candidate for SGLT2i due to DM1 - low-sodium diet, daily weights - Outpatient cardiology follow up Chronic: #Systemic lupus erythematosus: - on Plaquenil and followed by Rheum - continue mycophenolate -no clinical signs of acute lupus flare #Atrial fibrillation: -she is on warfarin chronically and has a pacemaker device. Failed apixaban. - warfarin resumed, pharmacy helping with dosing - monitoring INR Hypothyroidism: -continue levothyroxine Diabetes mellitus type 1: - Continue glargine 7 units bid, increase mealtime insulin to 4 units - continue SSI - continue glucose monitoring * Progress Notes - Yvonne Carballo, PharmD - 08/21/2024 7:43 AM EDT Antithrombosis Stewardship Pharmacist to Dose Warfarin Management Doron Felipe is a 74 y.o. female who has been consulted for warfarin dosing and monitoring. Current Hematologic Labs INR (no units) Date/Time Value 08/21/2024 0404 1.1 HGB (g/dL) Date/Time Value 08/17/2024 0428 10.1 (L) HCT (%) Date/Time Value 08/17/2024 0428 32.2 (L) Platelet Count (10*3/uL) Date/Time Value 08/17/2024 0428 396 (H) Subjective Warfarin Indication: Left Ventricular Thrombus;Atrial fibrillation Target INR: 2-3 Warfarin Prior to Admission: (Last dose on Sunday 08/13) Prior to Admission Daily Warfarin Regimen: 5mg except on Tuesdays 2.5 mg Assessment Warfarin Sensitivity Risk Factors: Elderly, age > 65;Chronic liver, renal, or thyroid disease Today's INR : Subtherapeutic Plan Warfarin Plan: Continue current dose Specify Warfarin Dose: resume home regimen 5 mg daily, except 2.5 mg on Tuesdays Reason For Holding Warfarin: (resumed 08/20) Bridging Agent in Conjunction With Warfarin? : No Patient Education : Complete and documented - Expect to see full effect on INR in 3-5 days Yvonne Carballo PharmD, [facility] Internal Medicine Clinical Pharmacist * Care Plan - Marlene Jain, EVITA - 08/20/2024 11:35 PM EDT Problem: Adult Inpatient Plan of Care Goal: Plan of Care Review Outcome: Ongoing, Progressing Goal: Patient-Specific Goal (Individualized) Outcome: Ongoing, Progressing Goal: Absence of Hospital-Acquired Illness or Injury Outcome: Ongoing, Progressing Goal: Optimal Comfort and Wellbeing Outcome: Ongoing, Progressing Goal: Readiness for Transition of Care Outcome: Ongoing, Progressing Problem: Mobility Impairment Goal: Optimal Mobility Outcome: Ongoing, Progressing Problem: Infection Goal: Absence of Infection Signs and Symptoms Outcome: Ongoing, Progressing * Progress Notes - Tk Hale - 08/20/2024 2:23 PM EDT Images from the original note were not included. Hospital Medicine Progress Note Subjective Length of stay: 6 days Brief Patient Summary: Doron Felipe is a 74-year-old woman with a PMH significant for SLE on Plaquenil followed by [facility], chronic bl pleural effusions, chronic hypoxic respiratory failure requiring 2-4 L/min at baseline, DM, hypothyroidism, HFpEF, and pacemaker who presented to the ED for progressively worsening shortness for breath. Subjective NAEON. Patient slept well and breathing improved, back to baseline. Had pleurodesis done yesterday without complications, chest tube still in. Says she wants to be on her home insulin regimen which is 7u nightly and 7u morning. No other acute concerns. Review of Systems Review of Systems All other systems reviewed and are negative. Objective Objective Last Recorded Vitals Blood pressure 114/70, pulse 60, temperature 37 ??C (98.6 ??F), resp. rate 21, height 1.626 m (5' 4 ), weight 61.2 kg (134 lb 14.7 oz), SpO2 98%. Physical Exam Constitutional: General: She is not in acute distress. HENT: Nose: Comments: Nasal cannula in Mouth/Throat: Mouth: Mucous membranes are moist. Cardiovascular: Rate and Rhythm: Normal rate. Pulses: Normal pulses. Pulmonary: Effort: Pulmonary effort is normal. Comments: Improved lung aeration R sided chest tube in Abdominal: General: Abdomen is flat. Palpations: Abdomen is soft. Tenderness: There is no abdominal tenderness. Musculoskeletal: Right lower leg: No edema. Left lower leg: No edema. Skin: General: Skin is warm. Neurological: Mental Status: She is alert and oriented to person, place, and time. Relevant Results Labs in last 18 hours CBC WBC ?? Hb ?? Plt ?? Hct ?? ANC ?? INR 1.0, PTT ??, Anti-Xa ?? BMP Na 125 (L) Cl 85 (L) BUN 29 (H) Glu 216 (H) K 4.8 Co2 26 Cr 0.97 Ca 9.5 iCa ?? Mg 1.8 (L), Phos ?? Lactate ?? LFT AST ?? AlkPhos ?? T Prot ?? ALK ?? Bili ?? Alb ?? D.Bili ?? Assessment/Plan Assessment & Plan Principal Problem: Acute on chronic hypoxic respiratory failure Active Problems: Type 1 diabetes mellitus with other specified complication (CMS/HCC) Acquired hypothyroidism SLE (systemic lupus erythematosus) (CMS/HCC) Pleural effusion Presence of cardiac pacemaker Heart failure with preserved ejection fraction (CMS/HCC) Atrial fibrillation (CMS/HCC) Acute on chronic congestive heart failure (CMS/HCC) Doron Felipe is a 74-year-old woman with recurrent pleural effusions, most likely associated with her Lupus and HF. She requires therapeutic thoracentesis periodically, and has had about 4 in the past. She is on a diuretic regimen supervised by Cardiology in the setting of her ischemic heart disease and HFpEF. She has chronic hypoxic respiratory failure requiring oxygen per nasal cannula at 2-4 L/min and had worsening O2 requirement recently, with a recent chest tube draining fluid and right sided pleurodesis. Today: - Hold diuretics today - Resume warfarin - I/Os - Oxygen as needed/tolerated - Monitor chest tube output, likely out tomorrow - Adjust insulin dosing to 7u glargine nightly and 7u AM, lispro with meals and ssi, per patient request for her home regimen Acute: #Acute on chronic hypoxic respiratory failure secondary to pleural effusions iso SLE vs. HFpEF Pleural effusion: chronic since 2020 Has required multiple hospitalizations: -She is status post left pleuroscopy, pleural biopsy, PleurX placement and chemical pleurodesis 11/19/2022. - Chest tube placed 08/17/24 per Pulm IR - Pleurodesis done with pulm IR 08/19/24 - Sodium 125, patient likely dehydrated due to aggressive diuresis and fluid shifting - CXR with improvement in effusions and lung aeration Plan: - Hold lasix and bessie today. - Monitor chest tube output; pulm following; pleural fluid studies collected - likely remove tomorrow -continue Plaquenil which is part of her SLE chronic management. - consulted cardiology; appreciate recommendations. Will continue with PO lasix and bessie once sodium corrected #Hypokalemia, Hypomagnesemia - Replete as needed. Given Mag oxide today #Acute hyponatremia - Na 125 on 08/20 - suspect hypovolemic due to aggressive diuresis - Hold diuretics - Repeat BMP in AM #Acute exacerbation of heart failure with preserved ejection fraction: Follows with Cardiology as an outpatient. May be contributing to the worsening effusions and volumestatus. -had echocardiogram 1 month ago. Demonstrated diastolic dysfunction with preserved LVEF. - RHC demonstrating increased pulmonary pressure Plan: -Hold diuretics for today. Once sodium corrects, will start 40 mg PO lasix daily and 25 mg spironolactone daily. -Continue metoprolol. - Not a candidate for SGLT2i due to DM1 - low-sodium diet - measure daily weights - Outpatient cardiology follow up Chronic: #Systemic lupus erythematosus: - on Plaquenil and followed by Rheum - continue mycophenolate -no clinical signs of acute lupus flare #Atrial fibrillation: -she is on warfarin chronically and has a pacemaker device. Failed apixaban. - Resume Warfarin, pharmacy to dose Hypothyroidism: -continue levothyroxine Diabetes mellitus type 1: - Adjust glargine to 7u nightly and 7u in AM - continue SSI and mealtimes - continue glucose monitoring Fluids: PO DVT Ppx: PLOV Diet: Regular diet 2g Na, low carbs Code status: Full Code Discharge Planning: Anticipated discharge to: Home Anticipated discharge needs: None Family Contact: Ruthie Jamil John Follow-up: PCP Cardiology Pulmonology Rheumatology Endocrinology Future Appointments Date Time Provider Department Center 09/08/2024 11:20 AM Alisa Kunz, DO [facility] 10/07/2024 4:00 PM [facility] 10/14/2024 4:00 PM Lavern Shoemaker MD [facility] 10/27/2024 1:40 PM Anne-Marie Kolb APRN [facility] [place] 11/29/2024 10:20 AM Alisa Kunz, DO [facility] 02/02/2025 10:30 AM Sadiq Osborne MBBS [facility] [place] MS4 Cosigned by Kenneth James MD at 08/20/2024 5:23 PM EDT Associated attestation - Kenneth James MD - 08/20/2024 5:23 PM EDT I saw and evaluated the patient with the medical/INFORMATICS NURSE SPECIALIST/PA student. I discussed the case with the medical/INFORMATICS NURSE SPECIALIST/PA student and agree with the findings and plan as documented. I personally performed the Examand Medical Decision Making. Severe exacerbation, progression, or side effect of treatment: Acute hyponatremia High risk: Drug therapy requiring intensive monitoring for toxicity: Warfarin - INR * Progress Notes - Macho Diaz - 08/20/2024 1:41 PM EDT PHYSICAL THERAPY TREATMENT PATIENT DATA Patient Name Doron Felipe Session Date 08/20/2024 Total Treatment Time 24 min PT Discharge Recommendations Home with 24 hour assistance, Home health PT, Home health OT Equipment Recommendations Patient owns appropriate equipment PRECAUTIONS Weight Bearing Precautions (if applicable) ROM Restrictions (if applicable) Medical Precautions Medical Precautions: Fall precautions HOME LIVING/SET-UP Lives With Spouse Home Type House Home Equipment Cane, Rolling walker, Wheelchair-manual (Home O2) Home Layout One level, Stairs to enter with rails 3 Bathroom Layout Walk-in shower, Shower chair, Grab bars, Handheld shower head (in process of renovating shower) Tall (in process of replacing standard with tall toilet) Additional Comments Caregiver 5days/week, 2-5hrs/day PRIOR LEVEL OF FUNCTION Receives help from Spouse, Caregiver Level of Mobility Ambulatory- household only (use of w/c in community) Mobility Cass Independent gait with device History of Falls No ADL Performance Bathing: Needs assist Upper Body Dressing: Independent Lower Body Dressing: Independent Grooming: Independent Toileting: Independent Eating: Independent Home Management Skills: Needs assist PRESENTATION Oxygen Lines and Tubes Chest Tube Right Midaxillary (Active) Peripheral IV 08/15/24 Anterior;Left Forearm (Active) Pre-Session Supine, Head of bed elevated, Bed alarm, Lines intact RN cleared patient for Physical Therapy treatment session. Post-Session Supine, Head of bed elevated, Bed alarm (zone 1, 2, 3), Lines intact, RN notified, Call light in reach Patient positioned for comfort and pressure relief at conclusion of therapy session. Bracing (if applicable) SUBJECTIVE PARTICIPANTS IN CARE Patient/Caregiver Comments Patient agreeable to Physical Therapy treatment session. Visitors Present Aeronautical Engineering Officer (if applicable) OBJECTIVE PAIN No complaints of pain throughout treatment session. Chest tube site discomfort improved since last session. DELIRIUM SCREENING Monge Agitation Sedation Scale (RASS): Alert and calm Confusion Assessment Method-ICU (CAM-ICU/PCAM-ICU) Feature 3: Altered Level of Consciousness: Negative INTERVENTIONS THERAPEUTIC ACTIVITY Treatment Minutes 24 Interventions Pt participated in 24 minute therapeutic activity treatment session focused on bed mobility, sitting balance, postural control, activity tolerance, sit to stand transfer, gait, assistive device management, lower extremity sequencing, energy conservation, and pt education regarding HEPand mobility. Pt required sequential verbal/tactile cues for task completion due to impaired energy conservation and impaired dynamic balance. Pt responded well to cues for safety, posture, and sequencing of tasks. All therapeutic activity specifically prescribed to address patient's impairments, performed to encourage increased IND with functional tasks due to current functional decline, ultimately to encourage a full return to patient's prior level of function. BED MOBILITY Level of Cass Physical/Non- physical Assist Adaptive Equipment Utilized Rolling/ Turning Modified independence Bed rails Scooting/ Bridging Modified independence Bed rails Supine to Sit Modified Cass HOB elevated, Set-up required Bed rails Sit to Supine Modified independence Set-up required, HOB elevated Bed rails Interventions TRANSFERS Level of Cass Physical/Non- physical Assist Adaptive Equipment Utilized Sit to Stand Contact guard Set-up required, Verbal Cues, Nonverbal cues (demo/gestures) Walker, rolling Stand to sit Contact guard Set-up required, Verbal Cues, Nonverbal cues (demo/gestures) Walker, rolling Bed to Chair Toilet Transfer Shower Transfer Interventions AMBULATION Level of Cass Distance Adaptive Equipment Utilized Ambulation Contact guard assist 75 feet Rolling walker Comments Pt exhibits the following gait deficits: Dizziness and lightheadedness during last 30 feet of gait. decreased step length decreased gait speed decreased dawn Patient demonstrates decreased overall activity tolerance and decreased strength, evidenced by decreased ambulation distance compared to baseline level of function. Provided verbal and tactile cueing to correct gait abnormalities listed above, to encourage increased overall functional IND, decrease overall fall risk, and ultimately a return to patient's prior level of function. BALANCE Postural Appearance Posture: Stooped posture, Forward head, Weight shift posterior to midline Level of Cass Balance Support Interventions Static Sit Standby assist Feet supported, Right upper extremity support, Left upper extremity support Dynamic Sit Standby assisst Feet supported Static Stand Contact guard Right upper extremity support, Left upper extremity support (rolling walker) Dynamic Stand Contact guard Right upper extremity support, Left upper extremity support (rolling walker) Lateral weight shifts, Anterior/Posterior weight shifts, Reaching for objects STANDARDIZED ASSESSMENTS [facility] 6-Clicks Mobility Assessment Difficulty patient has turning over in bed (including adjusting bedclothes, sheets, and blankets)?:None Difficulty patient has sitting down on and standing up from a chair with arms (wheelchair, bedside commode, etc.)?: A little Difficulty patient has moving from lying on back to sitting on the side of the bed?: None How much help does the patient need moving to and from a bed to a chair (including a wheelchair)?: A little How much help does the patient need to walk in hospital room?: A little How much help does the patient need climbing 3-5 steps with a railing?: A lot [facility] 6-Clicks Mobility Assessment Total : 19 ASSESSMENT Pt limited during session by decreased overall ambulation distance and currently requiring increased assistance with all transfers, gait, and balance. Pt limited by dizziness and lightheadedness during last 30 feet of gait, requiring multiple short standing rest breaks to allow for recovery. Patient presenting with overall functional decline compared to baseline level of function, however, shouldprogress well during inpatient stay. Patient will benefit from skilled inpatient PT services to address stated deficits and encourage a safe transition to the home environment. PT RECOMMENDATIONS Discharge Destination Home with 24 hour assistance, Home health PT, Home health OT Discharge Equipment Patient owns appropriate equipment PLAN Progress POC to encourage increased IND with all transfers, gait, and balance. PT GOALS PT GOAL DETAILS Goal Established Date Time Frame Goal Status PT Goal 1: Patient will complete supine <> sit with Britton 08/16/24 2 weeks PT Goal 2: Patient will complete STS and BTC transfers with Britton and LRAD 08/16/24 2 weeks PT Goal 3: Patient will ambulate 250 feet with SBA and LRAD with modified RPE remaining below 3/10 08/16/24 2 weeks PT Goal 4: Patient will be independent with understanding of PT discharge recommendations 08/16/24 2 weeks Written by Macho Diaz on 08/20/24 * Progress Notes - Edgar Harris - 08/20/2024 1:05 PM EDT OCCUPATIONAL THERAPY TREATMENT PATIENT DATA Patient Name Doron Felipe Session Date 08/20/2024 OT Discharge Recommendations Home with 24 hour assistance, Home health PT, Home health OT Equipment Recommendations Patient owns appropriate equipment PRECAUTIONS Medical Precautions Medical Precautions: Fall precautions HOME LIVING/SET-UP Lives With Spouse Home Type & Layout House One level, Stairs to enter with rails 3 Home Equipment Cane, Rolling walker, Wheelchair-manual (Home O2) Bathroom Layout Walk-in shower, Shower chair, Grab bars, Handheld shower head (in process of renovating shower) Tall (in process of replacing standard with tall toilet) Additional Comments Caregiver 5days/week, 2-5hrs/day PRIOR LEVEL OF FUNCTION Receives help from Spouse, Caregiver Level of Mobility Ambulatory- household only (use of w/c in community) Mobility Cass Independent gait with device History of Falls No ADL Performance Needs assistance Needs assist Independent Independent Independent Independent Independent Needs assist PRESENTATION Lines and Tubes Chest Tube Right Midaxillary (Active) Peripheral IV 08/15/24 Anterior;Left Forearm (Active) Pre-Session Supine, Head of bed elevated, Bed alarm, Lines intact RN consenting to OT treatment. Post-Session Supine, Head of bed elevated, Bed alarm (zone 1, 2, 3), Lines intact, RN notified, Call light in reach All needs met upon close of session. SUBJECTIVE RN approved and pt agreeable to work with occupational therapy. PARTICIPANTS IN CARE Patient/Caregiver Comments RN approved visit and pt agreeable to work with therapy at this time. Visitors Present No OBJECTIVE PAIN Pt reports 2/10, chest tube site pain at rest and no increased pain with functional endurance/mobility task during session. RN notified reporting patient is currently on track for medication schedule. DELIRIUM SCREENING Monge Agitation Sedation Scale (RASS): Alert and calm Confusion Assessment Method-ICU (CAM-ICU/PCAM-ICU) Feature 3: Altered Level of Consciousness: Negative COGNITION SCREENING Overall Cognitive Status Within Functional Limits Arousal/Alertness Appropriate responses to stimuli Mood/Behavior Alert Orientation Oriented X4 Command Following Single Step Commands: Consistently Method of Communication Verbal Additional Observations Safety Judgment: Good awareness of safety precautions Awareness of Errors: Good awareness of errors made Deficit Awareness: Fully aware of deficits Attention Span: Appears intact OT INTERVENTIONS THERAPEUTIC ACTIVITY Treatment Minutes 15 Interventions Therapist engaged patient in bed mobility, scooting to edge of surface, sitting balance and energy for task to support ADLs at edge of surface, static standing , and dynamic standing task to monitor and challenge functional endurance to increase b/l LE strength, cardiovascular & muscular endurance while working to improve activity tolerance and functional mobility in prep for higher level ADL participation. Pt presents with decreased energy for task, balance, LE strength &endurance, pain , decreased postural strength , lightheadedness with positional changes & mobility , and dizziness with changes positioning & mobility as major barriers leading decreased mobility and higher level ADL participation. (See section above for details) THERAPEUTIC EXERCISE Treatment Minutes 13 Interventions Occupational therapist constructed a personal [employer] home exercises program for patient to assist with recollection and act as a daily reminder to increase patient b/l UE, back and core strength while progressing patients ADL and functional mobility independence. Therapist engaged patient in reviewing each exercise while providing verbal cues for proper sequencing and body mechanics. Pt also educated on QR code availability. Therapist answered all patient questions and patient acknowledged understanding of exercises, suggested frequency and duration to promote strengthening and maintaining flexibility. Access Code: [email or web address] URL: [email or web address] Date: 08/20/2024 Prepared by: Edgar Harris Exercises - Seated Cervical Retraction - 2 x daily - 7 x weekly - 3 sets - 10 reps - 30 hold - Seated Scapular Retraction - 1 x daily - 7 x weekly - 3 sets - 10 reps - Standing Scapular Depression - 1 x daily - 7 x weekly - 3 sets - 10 reps - Seated Scapular Clock (11 to 5) - 1 x daily - 7 x weekly - 3 sets - 10 reps - Seated Elbow Flexion and Extension AROM - 1 x daily - 7 x weekly - 3 sets - 10 reps - Shoulder External Rotation and Scapular Retraction - 1 x daily - 7 x weekly - 3 sets - 10 reps - Seated Shoulder Flexion Full Range Single Arm - 1 x daily - 7 x weekly - 3 sets - 10 reps - Seated Shoulder Abduction - Thumbs Up - 1 x daily - 7 x weekly - 3 sets - 10 reps BED MOBILITY Level of Cass Physical/Non-physical Assist Rolling/Turning Modified independence pt required verbal cues for sequencing of b/l UE, b/L LE and trunk to initiate task. pt is physically able to roll bilaterally to provide self-assisted pressure relief to gluteal area. Pt educated on importance of rolling every hour (during awake hours) to provided pressure relief of back and bottom. pt verbalized understanding. , therapist assisted with linemanagement during task. Scooting/Bridging Modified independence pt provided instruction on engaging in mild trunk flexion then to weight shift onto one hip at EOB while shifting the contralateral hip outward toward EOB and repeat until feet reach the floor and pt is physically ABLE to bridge in supine to provide self assisted pressure relief to gluteal area to decrease skin irrigation that could cause pressure/decubitusulcers. pt educated on importance of bridging every hour to provide pressure relief to gluteal areafor self assisted decubitus ulcer prevention. pt verbalized understanding. . Supine to Sit Modified Cass HOB elevated, Set-up required Pt provided instruction on movingb/l LE toward EOB and reaching across body to bed rail. Pt also required verbal & tactile cues for task sequencing such as rolling to sideling with lower body initiation to facilitate segmental trunk movement. Sit to Supine Modified independence Set-up required, HOB elevated pt required cues for sequencing of task to lay down onto shoulder with elbow tucked and using that momentum to pull b/l LE onto bed. TRANSFERS Level of Cass Physical/Non-physical Assist AE Sit to Stand Contact guard Set-up required, Verbal Cues, Nonverbal cues (demo/gestures) pt requiredcues for hand positioning to push off from surface and to get their nose over their toes prior to standing. Walker, rolling Stand to sit Contact guard Set-up required, Verbal Cues, Nonverbal cues (demo/gestures) pt requiredverbal cues for proximity to sitting surface to feel for surface on back of legs, hand positioning to reach back to feel for surface/handrail prior to sitting and for slow decent to sitting surface. W alker, rolling BALANCE pt was able to sit @ EOB statically & dynamically (see above for assist levels) to engage in ADL task, lower back stretching, postural exercises and functional reaching task to challenge core/trunk strength & stability as well as energy for task in prep for increased higher level ADL independence. Postural Appearance Posture: Stooped posture, Forward head, Weight shift posterior to midline Level of Cass Balance Support Interventions Static Sit Standby assist Feet supported, Right upper extremity support, Left upper extremity support pt required cues to use UE to hold onto bedrails and/or side of mattress, pt provided cues for postural alignment to engage upper and lower back muscles to provide a more stable and upright sittingposture , 2/2 kyphotic posture to improve trunk control & balance during sit activities, and therapist assisted with line management during task. . Dynamic Sit Standby assisst Feet supported Therapist provided patient with postural cues and stretching of low back to increase upright sitting posture, Therapist engaged patient in ADL engagement including grooming and dressing task, pt engaged in b/l UE therex Static Stand Contact guard Right upper extremity support, Left upper extremity support (rolling walker) Pt provided time to assess potential lightheadedness and dizziness upon standing, then requiredcues for postural alignment to achieve full upright standing posture prior to taking steps forward toward hallway. Dynamic Stand Contact guard Right upper extremity support, Left upper extremity support (rolling walker) Lateral weight shifts, Anterior/Posterior weight shifts, Reaching for objects Therapist provided patient with verbal cues for eye gaze/head positioning, postural alignment, sequencing b/l LE, UEand trunk during transfer, and unable to take steps for a household distance without requiring SEATED rest break 2/2 increased DIZZINESS AND LIGHTHEADEDNESS SELF-CARE Treatment Minutes (if applicable) 10 Comments Therapist encouraged patient to engage in all ADL task (grooming, dressing and Toileting) within their given ability to promote continual b/l UE strengthening and continue to progress to ADLindependence. Pt verbalized understanding. Level of Cass Interventions Feeding Independent, Setup Bed level Grooming SBA, Setup Edge of bed to wash face Upper Body Dressing Minimum assistance, Setup Edge of bed Pt required physical assist and verbal cues to wrap hospital gown around patient and then to assist with guiding patients arm through sleevesto don hospital gown as bathrobe. Lower Body Dressing Sock Level of Assistance: Setup, Close supervision Shoe Level of Assistance: Setup, Close supervision Pt using cross-legged/hip external rotation technique with verbal cues for proper technique ASSESSMENT Pt engaged in skilled occupational therapy treatment session, pt demonstrated shoulder pain, decreased activity tolerance/functional endurance, decreased ADL performance, decreased postural/trunk strength, decreased b/l UE strength & endurance (from baseline per patient report), lightheaded/dizziness during ambulation, decreased LE strength & endurance (from baseline per patient report), and decrease balance & mobility. Pt will CONTINUE to benefit from skilled occupational therapy while in hospital to address deficits. Continue POC. OT RECOMMENDATIONS Discharge Destination Home with 24 hour assistance, Home health PT, Home health OT Discharge Equipment Patient owns appropriate equipment PLAN Continue with established OT plan of care 2 - 5 times per week to progress towards OT goals. OT GOALS OT GOAL DETAILS Goal Established Date Time Frame Goal Status OT Goal 1: Patient will complete functional ambulation to toilet and all toileting tasks with modified independence and LRAD. 08/16/24 2 weeks OT Goal 2: Patient will complete full body dressing with modified independence. 08/16/24 2 weeks OT Goal 3: Patietn will complete 3-step grooming routine while standing sinkside with modified independence. 08/16/24 2 weeks Post treatment OT educated medical staffing coordinator on patient ADL assist requirements, physical assist levels required, specialized techniques required for transfers, patients current pain levels upon conclusion ofsession, patients demeanor and overall performance with therapy. Therapist then answered all question RN and RN tech staff had. Written by Edgar Harris on 08/20/24 * Consults - Rosario Quick, RD - 08/20/2024 1:04 PM EDT Adult Nutrition Evaluation Note Doron Felipe 74 y.o. female CSN: [id number] Room/Bed 208/208C Nutrition evaluation type: assessment Reason for evaluation: [facility]: 74 yo female who is followed by Pulmonary and presented to the emergency department for worsening shortness for breath. Past medical/ surgical history: Past Medical History[1] Surgical History[2] Social history: Social History[3] Additional comments: 08/20: RD visited bedside, pt eating lunch and reports appetite as so-so . Pt expressed some preferences which RD will note in MyDining. Pt denied n/v/d, BM's out of pattern during admission. Pt is able to chew/swallow without difficulty. UBW without fluid retention is ~146# per pt, suspects UWL (8% loss, severe if accurate). Pt concerned that BS are elevated from normal values at home. Pt declined ONS. Vitals and Basic Assessment: BP: 114/70 Temp: 37 ??C (98.6 ??F) Oxygen Therapy: Supplemental oxygen O2 Delivery Method: Nasal cannula Km Coma Scale Score: 15 Jann Scale Score: 20 Miguel Ángel/Cubbin Pressure Risk Score: 43 Most Recent BM Date: 08/18/24 Allergies: Medications: Current Scheduled Medications[4] Meds were reviewed: Yes Labs: Labs in last 18 hours CBC WBC ?? Hb ?? Plt ?? Hct ?? ANC ?? INR 1.0, PTT ??, Anti-Xa ?? BMP Na 125 (L) Cl 85 (L) BUN 29 (H) Glu 216 (H) K 4.8 Co2 26 Cr 0.97 Ca 9.5 iCa ?? Mg 1.8 (L), Phos ?? Lactate ?? LFT AST ?? AlkPhos ?? T Prot ?? ALK ?? Bili ?? Alb ?? D.Bili ?? Anthropometrics: Height: 162.6 cm (5' 4 ) Weight: 61.2 kg (134 lb 14.7 oz) BMI (Calculated): 23.15 [place] Body Weight (kg): 54.5 Percent [place] Body Weight: 112 Wt Readings from Last 10 Encounters: 08/20/24 61.2 kg (134 lb 14.7 oz) 08/04/24 63.9 kg (140 lb 14 oz) 08/04/24 61.7 kg (136 lb) 07/30/24 61 kg (134 lb 7.7 oz) 07/21/24 61 kg (134 lb 7.7 oz) 07/15/24 63 kg (138 lb 14.2 oz) 07/08/24 65.2 kg (143 lb 11.8 oz) 07/01/24 63.5 kg (140 lb) 06/16/24 66.2 kg (146 lb) 05/27/24 64.9 kg (143 lb) Estimated Needs: Metabolic Cart Study Results: Current Nutrition Intake: Diet Supplements: None Diet Order: Adult Diet Diet Texture: Regular Adult Carbohydrate Restriction: Consistent CHO 2 ([id number] Damon, 80 g/meal) Adult Sodium Restriction: 2,000 mg Na Percent Meals Eaten (%): avg 81% (08/15-08/19) Diet Experience and Nutrition History: Diet Education Provided: Will monitor Pertinent home medications: Reviewed. Religion needs: Nutrition Focused Physical Exam: Unable to Complete Exam: Unable to access exam locations Physical exam performed on (date): Assessment of Malnutrition: Nutrition Problem: Unintended weight loss related to inadequate energy intake as evidenced by prior BW 146# per pt, current BW 134# as documented. Status of Nutrition Diagnosis: New Nutrition Interventions and Recommendations: -CC2/2g Na diet -Encourage PO and document daily intakes in flowsheet -Monitor elytes/ glucose Nutrition Monitoring and Goals: -Wt maintenance -Nutrition labs trending WDL -Glycemic control -PO intake >/= 75% most meals Acuity Level: 3 Rosario Quick, RD, LD [1] Past Medical History: Diagnosis Date 2018-nCoV acute respiratory disease 05/07/2022 Alcohol use Allergic 1973 Anemia Anxiety Arthritis Asthma Cellulitis 02/13/2024 Cellulitis of right leg 02/12/2024 CHF (congestive heart failure) ([facility]) Chronic respiratory failure 2019 Clotting disorder ([facility]) Congenital malformation COPD (chronic obstructive pulmonary disease) ([facility]) 2019 Coronary artery disease CTS (carpal tunnel syndrome) Dental disease Depression Diabetes mellitus type I ([facility]) Disease of thyroid gland Eczema Fracture of [...] - Was ableto get patient in with [facility] ophthalmology right after our clinic appointment [...] CARDIAC PACEMAKER PLACEMENT N/A Pacemaker Placement from [employer] CARPAL TUNNEL RELEASE N/A Neuroplasty Decompression Median Nerve At Carpal Tunnel from [employer] CERVICAL BIOPSY W/ LOOP ELECTRODE EXCISION 2010 SECTION, CLASSIC 1976, 1979 SECTION, LOW TRANSVERSE N/A Section from [employer] COLONOSCOPY N/A Complete Colonoscopy from [employer] CORONARY ARTERY BYPASS GRAFT N/A CABG from [employer] EYE SURGERY N/A Eye Surgery from [employer] FRACTURE SURGERY SPINE SURGERY THORACENTESIS TOE SURGERY Left 02/07/2024 hematoma removal of upper skin on L big toe TONSILLECTOMY N/A Tonsillectomy from [employer] [3] Social History Tobacco Use Smoking status: Never Passive exposure: Past (2nd hand smoke) Smokeless tobacco: Never Vaping Use Vaping status: Never Used Substance Use Topics Alcohol use: Yes Alcohol/week: 4.0 standard drinks of alcohol Types: 3 Cans of beer, 1 Shots of liquor per week Comment: Nightly Drug use: Never [4] aspirin, 81 mg, Oral, Daily brimonidine, 1 drop, Both Eyes, Daily cetirizine, 10 mg, Oral, Nightly DULoxetine, 80 mg, Oral, q AM enoxaparin, 40 mg, Subcutaneous, Daily ezetimibe, 10 mg, Oral, Nightly folic acid, 1 mg, Oral, Daily gabapentin, 300 mg, Oral, BID hydroxychloroquine, 200 mg, Oral, Daily insulin glargine-yfgn, 9 Units, Subcutaneous, Nightly insulin lispro, 0-5 Units, Subcutaneous, TID with meals insulin lispro, 0-3 Units, Subcutaneous, Twice at night Insulin Lispro, 2 Units, Subcutaneous, TID with meals latanoprost, 1 drop, Both Eyes, Nightly levothyroxine, 125 mcg, Oral, q AM magic mouthwash diphen/lido/erhg-stv-jtwfxf, 15 mL, Swish & Spit, Before meals & nightly magnesium oxide, 400 mg, Oral, Daily metoprolol succinate XL, 25 mg, Oral, Daily Tiotropium [place] Monohydrate, 2 puff, Inhalation, Daily AND mometasone- formoterol, 2 puff, Inhalation, BID mupirocin, 1 Application, Each Nostril, BID mycophenolate, 1,000 mg, Oral, BID [COMPLETED] Insert peripheral IV, , , Once AND [COMPLETED] Saline lock IV, , , Once AND sodium chloride, 10 mL, Intravenous, q12h AND sodium chloride, 10 mL, Intravenous, PRN [START ON 08/24/2024] warfarin, 2.5 mg, Oral, q7 days warfarin, 5 mg, Oral, Once per day on Friday * Progress Notes - Yvonne Carballo, PharmD - 08/20/2024 11:30 AM EDT Antithrombosis Stewardship Pharmacist to Dose Warfarin Management Doronmary ann Felipe is a 74 y.o. female who has been consulted for warfarin dosing and monitoring. Current Hematologic Labs INR (no units) Date/Time Value 08/20/2024 0157 1.0 HGB (g/dL) Date/Time Value 08/17/2024 0428 10.1 (L) HCT (%) Date/Time Value 08/17/2024 0428 32.2 (L) Platelet Count (10*3/uL) Date/Time Value 08/17/2024 0428 396 (H) Subjective Warfarin Indication: Left Ventricular Thrombus;Atrial fibrillation Target INR: 2-3 Warfarin Prior to Admission: (Last dose on Sunday 08/13) Prior to Admission Daily Warfarin Regimen: 5mg except on Tuesdays 2.5 mg Assessment Warfarin Sensitivity Risk Factors: Elderly, age > 65;Chronic liver, renal, or thyroid disease Today's INR : Subtherapeutic Plan Warfarin Plan: Start warfarin Specify Warfarin Dose: resume home regimen 5 mg daily, except 2.5 mg on Tuesdays Reason For Holding Warfarin: (resumed 08/20) Bridging Agent in Conjunction With Warfarin? : No Patient Education : Neeru Carballo, PharmD, [facility] Internal Medicine Clinical Pharmacist * Progress Notes - Boby Rouse, PRECISION LATHE OPERATOR - 08/20/2024 9:59 AM EDT Subjective No acute distress. No new complaints. Tolerated chemical pleurodesis yesterday well. Chest x-ray with no significant pleural effusion and <50ml output. Dyspnea stable on 2L nasal cannula. No fevers or chest pain. Review of Systems Constitutional: Negative for chills and fever. HENT: Negative for sore throat. Respiratory: Negative for cough. Baseline dyspnea Cardiovascular: Negative for chest pain, palpitations and leg swelling. Gastrointestinal: Negative for abdominal pain, nausea and vomiting. Neurological: Negative for headaches. Psychiatric/Behavioral: Negative for confusion. Objective Vitals Temp: [36.3 ??C (97.3 ??F)-37 ??C (98.6 ??F)] 36.8 ??C (98.3 ??F) Heart Rate: [60-67] 66 Resp: [11-22] 16 BP: (121-152)/(56-78) 152/63 FiO2 (%): [36 %] 36 % Physical Exam Constitutional: Appearance: She is ill-appearing. She is not toxic-appearing or diaphoretic. HENT: Head: Normocephalic and atraumatic. Right Ear: External ear normal. Left Ear: External ear normal. Nose: Nose normal. Mouth/Throat: Mouth: Mucous membranes are moist. Pharynx: Oropharynx is clear. Eyes: General: No scleral icterus. Extraocular Movements: Extraocular movements intact. Cardiovascular: Rate and Rhythm: Normal rate. Pulses: Normal pulses. Pulmonary: Effort: Pulmonary effort is normal. No tachypnea, accessory muscle usage or respiratory distress. Chest: Chest wall: No crepitus. Abdominal: General: There is no distension. Palpations: Abdomen is soft. Musculoskeletal: Cervical back: Normal range of motion and neck supple. Right lower leg: No edema. Left lower leg: No edema. Skin: General: Skin is warm and dry. Capillary Refill: Capillary refill takes less than 2 seconds. Coloration: Skin is not jaundiced. Neurological: Mental Status: She is alert and oriented to person, place, and time. Mental status is at baseline. Psychiatric: Mood and Affect: Mood normal. Behavior: Behavior normal. Assessment & Plan Doron Felipe is a 74 year old female life long non-smoker with a past medical history of SLE, HFpEF, A-fib, DM1, and CAD. She presented to on 08/14/2024 via emergency room with dyspnea. Interventional Pulmonology was consulted by Hospital Medicine regarding pleural effusion . # Right Pleural Effusion - Less likely related to SLE given transudate x2. - More likely related to HFpEF and/or pulmonary hypertension related - Status post talc slurry chemical pleurodesis 08/19/2024. # Left Pleural Effusion - Etiology of this left side SLE. - Status post pleuroscopy and pleural biopsy with chemical (iodine) pleurodesis 11/2022 with markedimprovement in pleural effusion. Had a left tunneled pleural cathter which was removed 01/2023. - Left pleural biopsy showed CHRONIC ORGANIZING PLEURITIS WITH FOCAL REACTIVE MESOTHELIUM AND HEMOSIDERIN-LADEN MACROPHAGES - Left fluid studies lymphoctic exudate with negative micro and cytology. Plan: - Right pigtail chest tube placement 08/17/2024 Will continue to drain to - [id number] suction. - Will repeat chest x-ray tomorrow morning and consider chest tube removal. - Incentive Spirometry and mobilize/ out of bed as tolerated. This patient and plan of care has been discussed with Dr. Edward Bojorquez. Boby Rouse APRN Pager: [phone] * Nursing Note - Sujit Figueroa RN - 08/20/2024 6:57 AM EDT Pt knocked over chest tube atrium while attempting to get to bedside commode. RN replaced atrium and educated pt on the importance of using the call light. MD notified, no new orders at this time. * Care Plan - Sujit Figueroa RN - 08/19/2024 11:05 PM EDT Problem: Adult Inpatient Plan of Care Goal: Plan of Care Review Outcome: Ongoing, Progressing Goal: Patient-Specific Goal (Individualized) Outcome: Ongoing, Progressing Goal: Absence of Hospital-Acquired Illness or Injury Outcome: Ongoing, Progressing Goal: Optimal Comfort and Wellbeing Outcome: Ongoing, Progressing Goal: Readiness for Transition of Care Outcome: Ongoing, Progressing Problem: Mobility Impairment Goal: Optimal Mobility Outcome: Ongoing, Progressing Problem: Infection Goal: Absence of Infection Signs and Symptoms Outcome: Ongoing, Progressing Problem: Diabetes Goal: Optimal Coping Outcome: Ongoing, Progressing Goal: Optimal Functional Ability Outcome: Ongoing, Progressing Goal: Blood Glucose Level Within Target Range Outcome: Ongoing, Progressing Goal: Minimize Hypoglycemia Risk Outcome: Ongoing, Progressing * Care Plan - Kosta Dugan RN - 08/19/2024 5:49 PM EDT Problem: Adult Inpatient Plan of Care Goal: Plan of Care Review Outcome: Ongoing, Progressing Goal: Patient-Specific Goal (Individualized) Outcome: Ongoing, Progressing Goal: Absence of Hospital-Acquired Illness or Injury Outcome: Ongoing, Progressing Goal: Optimal Comfort and Wellbeing Outcome: Ongoing, Progressing Goal: Readiness for Transition of Care Outcome: Ongoing, Progressing Problem: Mobility Impairment Goal: Optimal Mobility Outcome: Ongoing, Progressing Problem: Infection Goal: Absence of Infection Signs and Symptoms Outcome: Ongoing, Progressing Problem: Diabetes Goal: Optimal Coping Outcome: Ongoing, Progressing Goal: Optimal Functional Ability Outcome: Ongoing, Progressing Goal: Blood Glucose Level Within Target Range Outcome: Ongoing, Progressing Goal: Minimize Hypoglycemia Risk Outcome: Ongoing, Progressing * Progress Notes - Tk Hale - 08/19/2024 1:05 PM EDT Images from the original note were not included. Hospital Medicine Progress Note Subjective Length of stay: 5 days Brief Patient Summary: Doron Felipe is a 74-year-old woman with a PMH significant for SLE on Plaquenil followed by [facility], chronic bl pleural effusions, chronic hypoxic respiratory failure requiring 2-4 L/min at baseline, DM, hypothyroidism, HFpEF, and pacemaker who presented to the ED for progressively worsening shortness for breath. Subjective Patient doing better with breathing today, still on nasal cannula, wanting to try going down to 2L.She is urinating about 3 times per day. Completed RHC yesterday. She is planned for pleurodesis today with pulmonary. No other acute concerns. Review of Systems Review of Systems All other systems reviewed and are negative. Objective Objective Last Recorded Vitals Blood pressure 127/65, pulse 64, temperature 37 ??C (98.6 ??F), resp. rate 16, height 1.626 m (5' 4 ), weight 60.5 kg (133 lb 6.1 oz), SpO2 99%. Physical Exam Constitutional: General: She is not in acute distress. HENT: Nose: Comments: Nasal cannula in Mouth/Throat: Mouth: Mucous membranes are moist. Cardiovascular: Rate and Rhythm: Normal rate. Pulses: Normal pulses. Pulmonary: Effort: Pulmonary effort is normal. Comments: Improved lung aeration R sided chest tube in Abdominal: General: Abdomen is flat. Palpations: Abdomen is soft. Tenderness: There is no abdominal tenderness. Musculoskeletal: Right lower leg: No edema. Left lower leg: No edema. Skin: General: Skin is warm. Neurological: Mental Status: She is alert and oriented to person, place, and time. Relevant Results Labs in last 18 hours CBC WBC ?? Hb ?? Plt ?? Hct ?? ANC ?? INR 1.3 (H), PTT ??, Anti-Xa ?? BMP Na 132 (L) Cl 90 (L) BUN 31 (H) Glu 235 (H) K 4.4 Co2 30 (H) Cr 1.01 Ca 8.7 (L) iCa ?? Mg 1.7 (L), Phos ?? Lactate ?? LFT AST ?? AlkPhos ?? T Prot ?? ALK ?? Bili ?? Alb ?? D.Bili ?? Assessment/Plan Assessment & Plan Principal Problem: Acute on chronic hypoxic respiratory failure Active Problems: Type 1 diabetes mellitus with other specified complication (CMS/HCC) Acquired hypothyroidism SLE (systemic lupus erythematosus) (CMS/HCC) Pleural effusion Presence of cardiac pacemaker Heart failure with preserved ejection fraction (CMS/HCC) Atrial fibrillation (CMS/HCC) Acute on chronic congestive heart failure (CMS/HCC) Doron Felipe is a 74-year-old woman with recurrent pleural effusions, most likely associated with her Lupus and HF. She requires therapeutic thoracentesis periodically, and has had about 4 in the past. She is on a diuretic regimen supervised by Cardiology in the setting of her ischemic heart disease and HFpEF. She has chronic hypoxic respiratory failure requiring oxygen per nasal cannula at 2-4 L/min and has had worsening O2 requirement recently, with a recent chest tube draining fluid and right sided pleurodesis. Today: - Transition to PO Lasix 40 mg BID - Increase spironolactone to 25 mg daily - I/Os - Oxygen as needed/tolerated - Pleurodesis today with Pulm - Adjust insulin dosing to 7u glargine nightly, lispro with meals and ssi, per patient request for her home regimen Acute: #Acute on chronic hypoxic respiratory failure secondary to pleural effusions iso SLE vs. HFpEF Pleural effusion: chronic since 2020 Has required multiple hospitalizations: -She is status post left pleuroscopy, pleural biopsy, PleurX placement and chemical pleurodesis 11/19/2022. - Chest tube placed 08/17/24 per Pulm IR - Pleurodesis done with pulm IR 08/19/24 Plan: - Transition to PO lasix as above - Monitor chest tube output; pulm following; pleural fluid studies collected - CXR tomorrow morning -continue Plaquenil which is part of her SLE chronic management. - consulted cardiology; appreciate recommendations. Will continue with PO lasix #Electrolyte disturbance #Hypokalemia, Hypomagnesemia - Replete as needed. Given Mag oxide today. - Monitor #Acute exacerbation of heart failure with preserved ejection fraction: Follows with Cardiology as an outpatient. May be contributing to the worsening effusions and volumestatus. -had echocardiogram 1 month ago. Demonstrated diastolic dysfunction with preserved LVEF. - RHC demonstrating increased pulmonary pressure Plan: -continue with diuretic therapy with furosemide and spironolactone as above -Continue metoprolol. - Not a candidate for SGLT2i due to DM1 -low-sodium diet -measure daily weights - Outpatient cardiology follow up Chronic: #Systemic lupus erythematosus: -on Plaquenil and followed by Rheum - continue mycophenolate -no clinical signs of acute lupus flare #Atrial fibrillation: -she is on warfarin chronically and has a pacemaker device. Failed apixaban. -Continue to hold warfarin while drain in - Prophylactic lovenox 12 hours post procedure - Resume warfarin before discharge Hypothyroidism: -continue outpatient levothyroxine Diabetes mellitus type 1: - Adjust glargine to 7u nightly - continue SSI and mealtimes - continue glucose monitoring Fluids: PO DVT Ppx: holding for procedure Diet: Regular diet 2g Na, low carbs Code status: Full Code Discharge Planning: Anticipated discharge to: Home Anticipated discharge needs: None Family Contact: Ruthie Jamil John Follow-up: PCP Cardiology Pulmonology Rheumatology Future Appointments Date Time Provider Department Center 09/08/2024 11:20 AM Alisa Kunz DO [facility] 10/07/2024 4:00 PM [facility] 10/27/2024 1:40 PM Anne-Marie Kolb APRN [facility] 11/29/2024 10:20 AM Alisa Kunz DO [facility] 02/02/2025 10:30 AM Sadiq Osborne [facility] Tkvíctor Hale, MS4 Cosigned by Kenneth James MD at 08/19/2024 3:22 PM EDT Associated attestation - Kenneth James MD - 08/19/2024 3:22 PM EDT I saw and evaluated the patient with the medical/INFORMATICS NURSE SPECIALIST/PA student. I discussed the case with the medical/INFORMATICS NURSE SPECIALIST/PA student and agree with the findings and plan as documented. I personally performed the Examand Medical Decision Making. * Query Clarification Note - Doron Thayer MD - 08/19/2024 1:03 PM EDT A review of the medical record indicates additional documentation may be indicated. Please indicatea diagnosis, if any, that correlates with the following clinical findings: Abnormal lab values may not be coded without provider interpretation and documentation in the medical record. [x] Hyponatremia, POA [] Other, please specify [] Lab values clinically insignificant This documentation will become part of the patient's medical record. * Progress Notes - Candace Bryan, PharmD - 08/19/2024 12:42 PM EDT Antithrombosis Stewardship Pharmacist to Dose Warfarin Management Doron Felipe is a 74 y.o. female who has been consulted for warfarin dosing and monitoring. Current Hematologic Labs INR Date Value Ref Range Status 08/19/2024 1.3 (H) 0.9 - 1.1 Final HGB Date Value Ref Range Status 08/17/2024 10.1 (L) 11.2 - 15.7 g/dL Final HCT Date Value Ref Range Status 08/17/2024 32.2 (L) 34.0 - 45.0 % Final Platelet Count Date Value Ref Range Status 08/17/2024 396 (H) 155 - 369 10*3/uL Final No results found for: PTT Subjective Warfarin Indication: Left Ventricular Thrombus;Atrial fibrillation Target INR: 2-3 Warfarin Prior to Admission: (Last dose on Sunday 08/13) Prior to Admission Daily Warfarin Regimen: 5mg except on Tuesdays 2.5 mg Assessment Warfarin Sensitivity Risk Factors: Elderly, age > 65;Chronic liver, renal, or thyroid disease Today's INR : Subtherapeutic Plan Warfarin Plan: Hold Reason For Holding Warfarin: For procedure (RHC 08/18) Bridging Agent in Conjunction With Warfarin? : No Patient Education : Incomplete Per team, still HOLDing warfarin today for procedure. Will continue to follow patient's clinical progress daily. Candace Bryan, IrajD, [facility] Clinical Pharmacist - Internal Medicine Available via SecureChat * Procedures - Boby Rouse, YAMILET - 08/19/2024 12:10 PM EDT Chemical Pleurodesis - Slurry Side of procedure: Right Indication: Recurrent right pleural effusion Time out: Yes Position: Supine Recent Imaging: right lung well expanded with minimal to no pleural effusion Analgesia: Procedure Detail The patient was placed in the supine position. The chest tube was noted to be secure and functioning well. The chest tube was clamped. A sclerosing agent Talc 4grams was instilled via chest tube. Thepatient and team were instructed to have the patient rotate in bed left lateral decubitus, right lateral decubitus, trendelenburg, and reverse trendelenburg positions roughly every 15-20 minutes for 2 hours; unless he develops respiratory distress in which case lower atrium/pleurovac below level ofpatients chest and drain to -[id number] suction. After this intended time plan to place chest tube to -[id number] suction . Complications: None Recommendation Follow up chest x-ray tomorrow morning Avoid NSAIDS and steroids Drain to -[id number] suction * Progress Notes - Yue Zaragoza - 08/19/2024 10:48 AM EDT Case Management Adult Progress Note Doron Felipe 74 y.o. female CSN: [id number] Admission: 08/14/2024 3:16 PM Primary Problem: Acute on chronic hypoxic respiratory failure SW met with the provider team. Per the provider, the patient is not medically stable for discharge at this time and is not anticipated to have medical discharge readiness within the next 72 hours. Patient currently has a chest tube. SW will remain available and continue to follow up on discharge planning and patient needs as appropriate. MALKA Farah * Care Plan - Edgar Zaragoza MD - 08/19/2024 7:17 AM EDT Brief Cardiology Follow up Note Doron Felipe is a 74 y.o. female with a past medical history of mitral valve disease d/t severe MAC with mild to moderate stenosis, CAD s/p CABG IN 1999 (SHEEHAN to distal LAD, SVG to first diagonal, SVG to second diagonal), [facility] [employer]/Blank dual-chamber pacemaker, s/p Afib being treated as valvular afib with warfarin, HFpEF, T1DM, SLE on Plaquenil followed by [facility] , chronic hypoxic respiratory failure requiring 2-4 L/min at baseline and recurrent pleural effusions who initially presented to the [facility] with a chief complaint of progressively worsening shortness for breath. Cardiology was consulted for appropriateness of hemodynamic assessment with right heart catheterization. RHC was agreed upon and performed on 08/18/2024. Update: RHC Results: 1. Mildly elevated right and left-sided filling pressures. 2. Mildly elevated PA pressure (PA mean 30mmHg) with mild pre and post-capillary pulmonary hypertension (PVR 2.91 if using Cristiano cardiac output, 4.36 is using thermodilution cardiac output. The truth likely lies somewhere in the middle.) 3. Normal cardiac index by Cristiano, reduced cardiac index by thermodilution. Assessment: Unsure why her TD cardiac index is so low but based on clinical picture I believe her CO/CI is morereflective of the CRISTIANO calculations based on hemodynamics and mixed venous O2 values. Her HF is likely playing a part in her recurrent effusions with a wedge of 18 after a decent amountof diuresis prior. I believe aggressive diuresis and diligent maintenance diuresis will help control its contribution to the recurrences. Recommendations: Continue to diuresis with IV medications Plan to for a transition to PO diuretic once patient shows signs of intravascular euvolemia Patient can continue to follow up with cardiology outpatient Cardiology will sign off at this time. Please reach out if further questions arise. Edgar Zaragoza MD [facility] [place] * Progress Notes - Macho Diaz - 08/18/2024 2:35 PM EDT PHYSICAL THERAPY TREATMENT PATIENT DATA Patient Name Doron Felipe Session Date 08/18/2024 Total Treatment Time 23 min PT Discharge Recommendations Home with 24 hour assistance, Home health PT, Home health OT Equipment Recommendations Patient owns appropriate equipment PRECAUTIONS Weight Bearing Precautions (if applicable) ROM Restrictions (if applicable) Medical Precautions Medical Precautions: Fall precautions HOME LIVING/SET-UP Lives With Spouse Home Type House Home Equipment Cane, Rolling walker, Wheelchair-manual (Home O2) Home Layout One level, Stairs to enter with rails 3 Bathroom Layout Walk-in shower, Shower chair, Grab bars, Handheld shower head (in process of renovating shower) Tall (in process of replacing standard with tall toilet) Additional Comments Caregiver 5days/week, 2-5hrs/day PRIOR LEVEL OF FUNCTION Receives help from Spouse, Caregiver Level of Mobility Ambulatory- household only (use of w/c in community) Mobility Cass Independent gait with device History of Falls No ADL Performance Bathing: Needs assist Upper Body Dressing: Independent Lower Body Dressing: Independent Grooming: Independent Toileting: Independent Eating: Independent Home Management Skills: Needs assist PRESENTATION Oxygen Supplemental oxygen Nasal cannula 4 L/min Lines and Tubes Chest Tube Right Midaxillary (Active) Peripheral IV 08/15/24 Anterior;Left Forearm (Active) Pre-Session Supine, Head of bed elevated, Bed alarm, Lines intact RN cleared patient for Physical Therapy treatment session. Post-Session Supine, Head of bed elevated, Bed alarm (zone 1, 2, 3), Lines intact, RN notified, Call light in reach Patient positioned for comfort and pressure relief at conclusion of therapy session. Bracing (if applicable) SUBJECTIVE PARTICIPANTS IN CARE Patient/Caregiver Comments Patient agreeable to Physical Therapy treatment session. Visitors Present Aeronautical Engineering Officer (if applicable) OBJECTIVE PAIN Pt notes discomfort at chest tube site, however, did not rate. Pt positioned for comfort and pressure relief at conclusion of treatment session. DELIRIUM SCREENING Monge Agitation Sedation Scale (RASS): Alert and calm Confusion Assessment Method-ICU (CAM-ICU/PCAM-ICU) Feature 3: Altered Level of Consciousness: Negative INTERVENTIONS THERAPEUTIC ACTIVITY Treatment Minutes 23 Interventions Pt participated in 23 minute therapeutic activity treatment session focused on bed mobility, sitting balance, postural control, activity tolerance, sit to stand transfer, bed to chair transfer, gait, assistive device management, lower extremity sequencing, energy conservation, and pt education regarding HEP and mobility. Pt required sequential verbal/tactile cues for task completion due to decreased safety awareness, chest tube discomfort, dizziness with prolonged ambulation, and impaired dynamic balance. Pt responded well to cues for safety, posture, and sequencing of tasks. All therapeutic activity specifically prescribed to address patient's impairments, performed to encourage increased IND with functional tasks due to current functional decline, ultimately to encourage a full return to patient's prior level of function. BED MOBILITY Level of Cass Physical/Non- physical Assist Adaptive Equipment Utilized Rolling/ Turning Independent Bed rails Scooting/ Bridging Stand-by assist (to scoot towards EOB) Verbal Cues Supine to Sit Stand-by assist Verbal Cues Sit to Supine Stand-by assist Verbal Cues Interventions TRANSFERS Level of Cass Physical/Non- physical Assist Adaptive Equipment Utilized Sit to Stand Contact guard Set-up required, Verbal Cues, Nonverbal cues (demo/gestures) Walker, rolling Stand to sit Contact guard Set-up required, Verbal Cues, Nonverbal cues (demo/gestures) Walker, rolling Bed to Chair Toilet Transfer Shower Transfer Interventions AMBULATION Level of Cass Distance Adaptive Equipment Utilized Ambulation Contact guard assist 75 feet Rolling walker Comments Pt exhibits the following gait deficits: decreased step length decreased gait speed decreased dawn poor energy conservation Patient demonstrates decreased overall activity tolerance and decreased strength, evidenced by decreased ambulation distance compared to baseline level of function. Provided verbal and tactile cueing to correct gait abnormalities listed above, to encourage increased overall functional IND, decrease overall fall risk, and ultimately a return to patient's prior level of function. BALANCE Postural Appearance Posture: Stooped posture, Forward head, Weight shift posterior to midline Level of Cass Balance Support Interventions Static Sit Standby assist Feet supported, Right upper extremity support, Left upper extremity support Dynamic Sit Standby assisst Feet supported Static Stand Contact guard Right upper extremity support, Left upper extremity support (via RW) Dynamic Stand Contact guard Right upper extremity support, Left upper extremity support (RW) STANDARDIZED ASSESSMENTS [facility] 6-Clicks Mobility Assessment Difficulty patient has turning over in bed (including adjusting bedclothes, sheets, and blankets)?:A little Difficulty patient has sitting down on and standing up from a chair with arms (wheelchair, bedside commode, etc.)?: A little Difficulty patient has moving from lying on back to sitting on the side of the bed?: A little How much help does the patient need moving to and from a bed to a chair (including a wheelchair)?: A little How much help does the patient need to walk in hospital room?: A little How much help does the patient need climbing 3-5 steps with a railing?: A lot [facility] 6-Clicks Mobility Assessment Total : 17 ASSESSMENT Pt limited during session by decreased overall ambulation distance and currently requiring increased assistance with all transfers, gait, and balance. Pt primarily limited by pain at chest tube site and dizziness with prolonged ambulation, requiring occasional short rest breaks throughout session. Patient presenting with overall functional decline compared to baseline level of function, however, should progress well during inpatient stay. Patient will benefit from skilled inpatient PT services to address stated deficits and encourage a safe transition to the home environment. PT RECOMMENDATIONS Discharge Destination Home with 24 hour assistance, Home health PT, Home health OT Discharge Equipment Patient owns appropriate equipment PLAN Progress POC to encourage increased IND with all transfers, gait, and balance. PT GOALS PT GOAL DETAILS Goal Established Date Time Frame Goal Status PT Goal 1: Patient will complete supine <> sit with Britton 08/16/24 2 weeks PT Goal 2: Patient will complete STS and BTC transfers with Britton and LRAD 08/16/24 2 weeks PT Goal 3: Patient will ambulate 250 feet with SBA and LRAD with modified RPE remaining below 05/1708/16/24 2 weeks PT Goal 4: Patient will be independent with understanding of PT discharge recommendations 08/16/24 2 weeks Written by Macho Diaz on 08/18/24 * Progress Notes - CarballoYvonne PharmD - 08/18/2024 1:12 PM EDT Antithrombosis Stewardship Pharmacist to Dose Warfarin Management Doron Felipe is a 74 y.o. female who has been consulted for warfarin dosing and monitoring. Current Hematologic Labs INR (no units) Date/Time Value 08/18/2024 0118 1.4 (H) HGB (g/dL) Date/Time Value 08/17/2024 0428 10.1 (L) HCT (%) Date/Time Value 08/17/2024 0428 32.2 (L) Platelet Count (10*3/uL) Date/Time Value 08/17/2024 0428 396 (H) Subjective Warfarin Indication: Atrial fibrillation Target INR: 2-3 Warfarin Prior to Admission: (Last dose on Sunday 08/13) Prior to Admission Daily Warfarin Regimen: 5mg except on Tuesdays 2.5 mg Assessment Warfarin Sensitivity Risk Factors: Elderly, age > 65;Chronic liver, renal, or thyroid disease Today's INR : Subtherapeutic Plan Warfarin Plan: Hold Reason For Holding Warfarin: For procedure ([facility] 08/18) Bridging Agent in Conjunction With Warfarin? : No Patient Education : Incomplete Yvonne Carballo PharmD, [facility] Internal Medicine Clinical Pharmacist * Progress Notes - Edgar Harris - 08/18/2024 10:35 AM EDT OCCUPATIONAL THERAPY TREATMENT PATIENT DATA Patient Name Doron Felipe Session Date 08/18/2024 OT Discharge Recommendations Home with 24 hour assistance, Home health PT, Home health OT Equipment Recommendations Patient owns appropriate equipment PRECAUTIONS Medical Precautions Medical Precautions: Fall precautions HOME LIVING/SET-UP Lives With Spouse Home Type & Layout House One level, Stairs to enter with rails 3 Home Equipment Cane, Rolling walker, Wheelchair-manual (Home O2) Bathroom Layout Walk-in shower, Shower chair, Grab bars, Handheld shower head (in process of renovating shower) Tall (in process of replacing standard with tall toilet) Additional Comments Caregiver 5days/week, 2-5hrs/day PRIOR LEVEL OF FUNCTION Receives help from Spouse, Caregiver Level of Mobility Ambulatory- household only (use of w/c in community) Mobility Cass Independent gait with device History of Falls No ADL Performance Needs assistance Needs assist Independent Independent Independent Independent Independent Needs assist PRESENTATION Lines and Tubes Chest Tube Right Midaxillary (Active) Peripheral IV 08/15/24 Anterior;Left Forearm (Active) Pre-Session Supine, Head of bed elevated, Bed alarm, Lines intact RN consenting to OT treatment. Post-Session Supine, Head of bed elevated, Bed alarm (zone 1, 2, 3), Lines intact, RN notified, Call light in reach All needs met upon close of session. SUBJECTIVE RN approved and pt agreeable to work with occupational therapy. PARTICIPANTS IN CARE Patient/Caregiver Comments RN approved visit and pt agreeable to work with therapy at this time. Visitors Present No OBJECTIVE PAIN Pt reports 3/10, chest tube site pain at rest and reports mild posterior headache with functional endurance/mobility task during session. RN notified reporting patient is currently on track for medication schedule. DELIRIUM SCREENING Monge Agitation Sedation Scale (RASS): Alert and calm Confusion Assessment Method-ICU (CAM-ICU/PCAM-ICU) Feature 3: Altered Level of Consciousness: Negative COGNITION SCREENING Overall Cognitive Status Within Functional Limits Arousal/Alertness Appropriate responses to stimuli Mood/Behavior Alert Orientation Oriented X4 Command Following Single Step Commands: Consistently Method of Communication Verbal Additional Observations Safety Judgment: Good awareness of safety precautions Awareness of Errors: Good awareness of errors made Deficit Awareness: Fully aware of deficits Attention Span: Appears intact OT INTERVENTIONS THERAPEUTIC ACTIVITY Treatment Minutes 16 Interventions Therapist engaged patient in bed mobility, scooting to edge of surface, sitting balance and energy for task to support ADLs at edge of surface, static standing , and dynamic standing task to monitor and challenge functional endurance to increase b/l LE strength, cardiovascular & muscular endurance while working to improve activity tolerance and functional mobility in prep for higher level ADL participation. Pt presents with decreased energy for task, LE strength & endurance and pain as major barriers leading decreased mobility and higher level ADL participation. (See section above for details) THERAPEUTIC EXERCISE Treatment Minutes 10 Interventions OT engaged patient in a review of of UE HEP w/patient demonstration of each exercise requiring minimal verbal and tactile assist, provided rest breaks between each set 2/2 fatigue to assess for proper technique including shoulder forward flexion, shoulder abduction, shoulder internal & external rotation, elbow flex/ext and forward punches for :30 seconds. In addition patient engaged in neck rotation stretch, chin/head retraction with 3 sec hold, scapular retraction and depression with 3 sec hold to assist with forward progression of shoulders and head. BED MOBILITY Level of Cass Physical/Non-physical Assist Rolling/Turning Independent pt is physically able to roll bilaterally to provide self-assisted pressure relief to gluteal area. Pt educated on importance of rolling every hour (during awake hours) toprovided pressure relief of back and bottom. pt verbalized understanding. , therapist assisted withline management during task. Scooting/Bridging Stand-by assist (to scoot towards EOB) Verbal Cues pt provided instruction on engaging in mild trunk flexion then to weight shift onto one hip at EOB while shifting the contralateral hip outward toward EOB and repeat until feet reach the floor and pt is physically ABLE to bridge in supine to provide self assisted pressure relief to gluteal area to decrease skin irrigation that could cause pressure/decubitus ulcers. pt educated on importance of bridging every hour to provide pressure relief to gluteal area for self assisted decubitus ulcer prevention. pt verbalized understanding. . Supine to Sit Stand-by assist Verbal Cues Pt provided instruction on moving b/l LE toward EOB and reaching across body to bed rail. Pt also required verbal & tactile cues for task sequencing suchas rolling to sideling with lower body initiation to facilitate segmental trunk movement. Sit to Supine Stand-by assist Verbal Cues pt required cues for sequencing of task to lay down onto shoulder with elbow tucked and using that momentum to pull b/l LE onto bed. TRANSFERS Level of Cass Physical/Non-physical Assist AE Sit to Stand Contact guard Set-up required, Verbal Cues, Nonverbal cues (demo/gestures) pt requiredcues for hand positioning to push off from surface and to get their nose over their toes prior to standing. Walker, rolling Stand to sit Contact guard Set-up required, Verbal Cues, Nonverbal cues (demo/gestures) pt requiredverbal cues for proximity to sitting surface to feel for surface on back of legs, hand positioning to reach back to feel for surface/handrail prior to sitting and for slow decent to sitting surface. W alker, rolling BALANCE pt was able to sit @ EOB statically & dynamically (see above for assist levels) to engage in ADL task, lower back stretching, postural exercises and functional reaching task to challenge core/trunk strength & stability as well as energy for task in prep for increased higher level ADL independence. Postural Appearance Posture: Stooped posture, Forward head, Weight shift posterior to midline Level of Cass Balance Support Interventions Static Sit Standby assist Feet supported, Right upper extremity support, Left upper extremity support pt required cues to use UE to hold onto bedrails and/or side of mattress, pt provided cues for postural alignment to engage upper and lower back muscles to provide a more stable and upright sittingposture , and therapist assisted with line management during task. . Dynamic Sit Standby assisst Feet supported Therapist provided patient with postural cues and stretching of low back to increase upright sitting posture, Therapist engaged patient in ADL engagement including grooming and dressing task, pt engaged in b/l UE therex Static Stand Contact guard Right upper extremity support, Left upper extremity support (via RW) Pt provided time to assess potential lightheadedness and dizziness upon standing, then required cues for postural alignment to achieve full upright standing posture prior to taking steps forward toward hallway. Dynamic Stand Contact guard Right upper extremity support, Left upper extremity support (RW) Therapist provided patient with verbal cues for postural alignment and unable to take steps for a household distance without requiring SEATED rest break 2/2 decreased b/l LE ENERGY FOR TASK SELF-CARE Treatment Minutes (if applicable) 12 Comments Therapist encouraged patient to engage in all ADL task (grooming, dressing and Toileting) within their given ability to promote continual b/l UE strengthening and continue to progress to ADLindependence. Pt verbalized understanding. Level of Cass Interventions Feeding Independent, Setup Bed level Grooming SBA, Setup Edge of bed to wash face Upper Body Dressing Minimum assistance, Setup Edge of bed Pt required physical assist and verbal cues to wrap hospital gown around patient and then to assist with guiding patients arm through sleevesto don hospital gown as bathrobe. Lower Body Dressing Sock Level of Assistance: Setup, Close supervision Shoe Level of Assistance: Setup, Close supervision Pt using cross-legged/hip external rotation technique with verbal cues for proper technique ASSESSMENT Pt engaged in skilled occupational therapy treatment session, pt demonstrated chest tube site and head ache pain, decreased activity tolerance/functional endurance, decreased ADL performance, and decreased LE strength & endurance (from baseline per patient report). Pt will CONTINUE to benefit from skilled occupational therapy while in hospital to address deficits. Continue POC. OT RECOMMENDATIONS Discharge Destination Home with 24 hour assistance, Home health PT, Home health OT Discharge Equipment Patient owns appropriate equipment PLAN Continue with established OT plan of care 2 - 5 times per week to progress towards OT goals. OT GOALS OT GOAL DETAILS Goal Established Date Time Frame Goal Status OT Goal 1: Patient will complete functional ambulation to toilet and all toileting tasks with modified independence and LRAD. 08/16/24 2 weeks OT Goal 2: Patient will complete full body dressing with modified independence. 08/16/24 2 weeks OT Goal 3: Patietn will complete 3-step grooming routine while standing sinkside with modified independence. 08/16/24 2 weeks Post treatment OT educated medical staffing coordinator on patient ADL assist requirements, physical assist levels required, specialized techniques required for transfers, patients current pain levels upon conclusion ofsession, patients demeanor and overall performance with therapy. Therapist then answered all question RN and RN tech staff had. Written by Edgar Harris on 08/18/24 * Progress Notes - Tk Hale - 08/18/2024 9:00 AM EDT Images from the original note were not included. Hospital Medicine Progress Note Subjective Length of stay: 4 days Brief Patient Summary: Doron Felipe is a 74-year-old woman with a PMH significant for SLE on Plaquenil followed by [facility], chronic bl pleural effusions, chronic hypoxic respiratory failure requiring 2-4 L/min at baseline, DM, hypothyroidism, HFpEF, and pacemaker who presented to the ED for progressively worsening shortness for breath. Subjective One sugar to 58 overnight, asymptomatic. She reports doing 7u of glargine in the morning and 7u at night for total 14u. Patient doing better with breathing today, still on nasal cannula. Chest tube output around 1.5L, she says she feels a little better but has some pain in the area. NPO for RHC today. Patient reporting feeling lightheaded upon standing. No other acute concerns. Review of Systems Review of Systems All other systems reviewed and are negative. Objective Objective Last Recorded Vitals Blood pressure 131/66, pulse 60, temperature 36.6 ??C (97.8 ??F), temperature source Oral, resp. rate 21, height 1.626 m (5' 4 ), weight 60.5 kg (133 lb 6.1 oz), SpO2 99%. Physical Exam Constitutional: General: She is not in acute distress. HENT: Nose: Comments: Nasal cannula in Mouth/Throat: Mouth: Mucous membranes are moist. Cardiovascular: Rate and Rhythm: Normal rate. Pulmonary: Effort: Pulmonary effort is normal. Comments: Improved lung aeration R sided chest tube in Abdominal: General: Abdomen is flat. Palpations: Abdomen is soft. Tenderness: There is no abdominal tenderness. Musculoskeletal: Right lower leg: No edema. Skin: General: Skin is warm. Neurological: Mental Status: She is alert and oriented to person, place, and time. Relevant Results Labs in last 18 hours CBC WBC ?? Hb ?? Plt ?? Hct ?? ANC ?? INR 1.4 (H), PTT ??, Anti-Xa ?? BMP Na 132 (L) Cl 90 (L) BUN 26 (H) Glu 211 (H) K 4.4 Co2 30 (H) Cr 1.15 (H) Ca 8.8 (L) iCa ?? Mg 2.1, Phos ?? Lactate ?? LFT AST ?? AlkPhos ?? T Prot ?? ALK ?? Bili ?? Alb ?? D.Bili ?? Assessment/Plan Assessment & Plan Principal Problem: Acute on chronic hypoxic respiratory failure Active Problems: Type 1 diabetes mellitus with other specified complication (CMS/HCC) Acquired hypothyroidism SLE (systemic lupus erythematosus) (CMS/HCC) Pleural effusion Presence of cardiac pacemaker Heart failure with preserved ejection fraction (CMS/HCC) Atrial fibrillation (CMS/HCC) Acute on chronic congestive heart failure (CMS/HCC) Doron Felipe is a 74-year-old woman with recurrent pleural effusions, most likely associated with her Lupus and HF. She requires therapeutic thoracentesis periodically, and has had about 4 in the past. She is on a diuretic regimen supervised by Cardiology in the setting of her ischemic heart disease and HFpEF. She has chronic hypoxic respiratory failure requiring oxygen per nasal cannula at 2-4 L/min and has had worsening O2 requirement recently, with a recent chest tube draining fluid. Today: - Decrease Lasix to 40 mg IV BID - I/Os - Oxygen as needed/tolerated - Chest tube drain via Pulm - NPO for right heart cath today - Adjust insulin dosing to 12u glargine nightly Acute: #Acute on chronic hypoxic respiratory failure secondary to pleural effusions iso SLE vs. HFpEF Pleural effusion: chronic since 2020 Has required multiple hospitalizations: -She is status post left pleuroscopy, pleural biopsy, PleurX placement and chemical pleurodesis 11/19/2022. - Chest tube placed 08/17/24 per Pulm IR Plan: - Decrease IV Lasix as above - Monitor chest tube output; pulm following; pleural fluid studies collected - Pulm planning right talc slurry chemical pleurodesis tomorrow -continue Plaquenil which is part of her SLE chronic management. - consulted cardiology #Electrolyte disturbance #Hypokalemia, Hypomagnesemia - Replete as needed. Given 60 mg PO KCl and 2 g IV Mag. - Monitor #Acute exacerbation of heart failure with preserved ejection fraction: Follows with Cardiology as an outpatient. May be contributing to the worsening effusions and volumestatus. -had echocardiogram 1 month ago. Demonstrated diastolic dysfunction with preserved LVEF. Plan: -continue with diuretic therapy with furosemide and spironolactone -Continue to hold metoprolol for now. -low-sodium diet -measure daily weights - RHC today Chronic: #Systemic lupus erythematosus: -on Plaquenil and followed by Rheum - continue mycophenolate -no clinical signs of acute lupus flare #Atrial fibrillation: -she is on warfarin chronically and has a pacemaker device. -Continue to hold warfarin while drain in and possibility of RHC Hypothyroidism: -continue outpatient levothyroxine Diabetes mellitus type 1: - Adjust glargine to 12u nightly - continue SSI, resistant protocol once diet restarted - continue glucose monitoring Fluids: PO DVT Ppx: holding for procedure Diet: Regular diet 2g Na, low carbs, NPO today Code status: Full Code Discharge Planning: Anticipated discharge to: Home Anticipated discharge needs: None Family Contact: OmeroRuthie MatteoDoron Follow-up: PCP Cardiology Pulmonology Rheumatology Future Appointments Date Time Provider Department Center 08/19/2024 1:30 PM Lavern Shoemaker MD [facility] 09/08/2024 11:20 AM Alisa Kunz, [facility] 10/07/2024 4:00 PM [facility] 10/27/2024 1:40 PM Anne-Marie Kolb, [facility] 11/29/2024 10:20 AM Alisa Kunz, [facility] 02/02/2025 10:30 AM Sadiq Osborne MBBS [facility] Associated attestation - Kenneth James MD - 08/18/2024 5:37 PM EDT I saw and evaluated the patient with the medical/INFORMATICS NURSE SPECIALIST/PA student. I discussed the case with the medical/INFORMATICS NURSE SPECIALIST/PA student and agree with the findings and plan as documented. I personally performed the Examand Medical Decision Making. Acute threat to life/bodily function: Acute hypoxic respiratory failure. High risk: Drug therapy requiring intensive monitoring for toxicity: Lasix, monitoring urine outputand electrolytes. * Progress Notes - Boby Rouse APRN - 08/18/2024 8:46 AM EDT Subjective No acute distress. Mild soreness around right chest tube much improved with acetaminophen. Drained 1.4L since insertion with great improvement in chest x- ray - modest improvement in dyspnea but patient has not been out of bed to exert herself. Planning right heart cath today- has been NPO. Review of Systems Constitutional: Negative for chills and fever. HENT: Negative for sore throat. Respiratory: Negative for cough. Baseline dyspnea Cardiovascular: Positive for chest pain. Negative for leg swelling. Gastrointestinal: Negative for abdominal pain, nausea and vomiting. Neurological: Negative for headaches. Psychiatric/Behavioral: Negative for confusion. Objective Vitals Temp: [36.6 ??C (97.8 ??F)-37.2 ??C (98.9 ??F)] 36.8 ??C (98.2 ??F) Heart Rate: [59-79] 60 Resp: [13-21] 16 BP: (107-146)/(61-73) 146/64 Physical Exam Constitutional: Appearance: She is ill-appearing. She is not toxic-appearing or diaphoretic. HENT: Head: Normocephalic and atraumatic. Right Ear: External ear normal. Left Ear: External ear normal. Nose: Nose normal. Mouth/Throat: Mouth: Mucous membranes are moist. Pharynx: Oropharynx is clear. Eyes: General: No scleral icterus. Extraocular Movements: Extraocular movements intact. Cardiovascular: Rate and Rhythm: Normal rate. Pulses: Normal pulses. Pulmonary: Effort: Pulmonary effort is normal. No tachypnea, accessory muscle usage or respiratory distress. Chest: Chest wall: No crepitus. Comments: Right chest tube without air leak and secure Abdominal: General: There is no distension. Palpations: Abdomen is soft. Musculoskeletal: Cervical back: Normal range of motion and neck supple. Right lower leg: No edema. Left lower leg: No edema. Skin: General: Skin is warm and dry. Capillary Refill: Capillary refill takes less than 2 seconds. Coloration: Skin is not jaundiced. Neurological: Mental Status: She is alert and oriented to person, place, and time. Mental status is at baseline. Psychiatric: Mood and Affect: Mood normal. Behavior: Behavior normal. Assessment & Plan Doron Felipe is a 74 year old female life long non-smoker with a past medical history of SLE, HFpEF, A-fib, DM1, and CAD. She presented to on 08/14/2024 via emergency room with dyspnea. Interventional Pulmonology was consulted by Hospital Medicine regarding pleural effusion . # Right Pleural Effusion - Less likely related to SLE given transudate x2. - More likely related to HFpEF and/or pulmonary hypertension related (group 1 vs 3). # Left Pleural Effusion - Etiology of this left side SLE. - Status post pleuroscopy and pleural biopsy with chemical (iodine) pleurodesis 11/2022 with markedimprovement in pleural effusion. Had a left tunneled pleural cathter which was removed 01/2023. - Left pleural biopsy showed CHRONIC ORGANIZING PLEURITIS WITH FOCAL REACTIVE MESOTHELIUM AND HEMOSIDERIN-LADEN MACROPHAGES - Left fluid studies lymphoctic exudate with negative micro and cytology. Plan: - Right pigtail chest tube placement 08/17/2024 Will continue to drain to - [id number] suction. - Will repeat chest x-ray tomorrow morning and plan on right talc slurry chemical pleurodesis tomorrow 08/19/2024 at bedside. This patient and plan of care has been discussed with Dr. Edward Bojorquez. Boby Rouse APRN Pager: [phone] * Pre-Sedation Documentation - Edgar Zaragoza MD - 08/18/2024 7:14 AM EDT Images from the original note were not included. Cardiology Pre-procedural Assessment And Sedation Plan Indication for procedure: The primary encounter diagnosis was Pleural effusion. Diagnoses of Acute on chronic congestive heart failure, unspecified heart failure type (CMS/HCC) and Shortness of breath were also pertinent to this visit. Planned Procedure: RHC Relevant past medical history: HFPEF, SLE, recurrent pleural effusions Relevant review of systems: NA Relevant Labs: Lab Results Component Value Date CREATININE 1.15 (H) 08/18/2024 EGFR 50.4 08/18/2024 INR 1.4 (H) 08/18/2024 Planned Sedation/Anesthesia: Moderate Airway assessment: normal Mallampati Score: II (hard and soft palate, upper portion of tonsils anduvula visible) ASA: ASA 3 - Patient with moderate systemic disease with functional limitations Directed physical examination: General: NAD Skin: warm, dry, no rashes Heart: RRR; nl S1 S2, no murmurs Lungs: decreased BS on the right side Extremities/MSK: No edema, 2+ peripheral pulses Psych: mood & affect appropriate. Benefits, risks and alternatives of procedure and planned sedation have been discussed with the patient and/or their sales and service representative. All questions answered and they agree to proceed. * Care Plan - Ekaterina Pennington - 08/18/2024 2:11 AM EDT Problem: Diabetes Goal: Optimal Coping Outcome: Ongoing, Progressing Goal: Optimal Functional Ability Outcome: Ongoing, Progressing Goal: Blood Glucose Level Within Target Range Outcome: Ongoing, Progressing -hypoglycemic overnight, long acting decreased Goal: Minimize Hypoglycemia Risk Outcome: Ongoing, Progressing -education on signs and symptoms of hypoglycemia with patient * Care Plan - Ekaterina Pennington - 08/18/2024 2:09 AM EDT Problem: Adult Inpatient Plan of Care Goal: Plan of Care Review Outcome: Ongoing, Progressing Problem: Mobility Impairment Goal: Optimal Mobility Outcome: Ongoing, Progressing Problem: Infection Goal: Absence of Infection Signs and Symptoms Outcome: Ongoing, Progressing * Consults - Edgar Zaragoza MD - 08/17/2024 1:50 PM EDTAssociated Order(s): IP CONSULT TO CARDIOLOGY Images from the original note were not included. CARDIOLOGY NEW CONSULT NOTE Reason For Consult: evaluation for RHC Requesting Attending/Service: Kenneth James MD Requested Date/Time: 08/17/24 SUBJECTIVE History Of Present Illness Doron Felipe is a 74 y.o. female with a past medical history of mitral valve disease d/t severe MAC with mild to moderate stenosis, CAD s/p CABG IN 1999 (SHEEHAN to distal LAD, SVG to first diagonal, SVG to second diagonal), [facility] [employer]/Blank dual-chamber pacemaker, s/p Afib being treated as valvular afib with warfarin, HFpEF, T1DM, SLE on Plaquenil followed by [facility] , chronic hypoxic respiratory failure requiring 2-4 L/min at baseline and recurrent pleural effusions who initially presented to the [facility] with a chief complaint of progressively worsening shortness for breath. . Cardiology is being consulted for appropriateness of hemodynamic assessment with right heart catheterization. She has required therapeutic thoracentesis periodically. She follows with cardiology through [facility] as an outpatient last seen on 02/17/2024. Was seen by cardiology consult service inpatient in July of 2024 for management of HFpEF and chest pressure. At the time the team lowered the PPM rate to 60 to increase diastolic filling time in setting of MS. The suspect that the LV apical thrombus called on 05/2024 upon further review echo was justtrabeculations and not a thrombus. Patient follows closely with [facility] cardiology who would like patient to start on dofetilide. This has not been done yet. She has received IV diuresis with good output with a net negative nearly 4L. Also received chest tube placement via IR for pleural fluid drainage. The warfarin was held in the setting of placement ofthe chest tube. Upon evaluation patient is laying in bed in no acute distress. Review of Systems 14 point ROS reviewed and is otherwise negative except that which is mentioned in the HPI. Past Medical History Past Medical History[1] Surgical History Surgical History[2] Family History Reviewed and non-contributory. Allergies Morphine, Morphine and codeine, Pravastatin, Azathioprine, Cephalexin, Codeine, Penicillins, Rosuvastatin, Seasonal ic [cholestatin], Statins, Tetracycline, and Tetracyclines & related Home Medications Current Outpatient Medications Medication Instructions acetaminophen (TYLENOL) 1,000 mg, Every 6 hours PRN amLODIPine (NORVASC) 5 mg, Daily aspirin 81 mg, Every evening brimonidine 0.2 % OP ophthalmic solution 1 drop, Both Eyes, Daily busPIRone (BUSPAR) 10 mg, 2 times daily PRN Calcium Carb-Cholecalciferol 600-200 MG-UNIT tablet 1 tablet, Every morning cetirizine (ZYRTEC) 10 mg, Every evening clobetasol (Temovate) 0.05 % cream 1 Application, 2 times daily PRN DULoxetine (CYMBALTA) 20 mg, Oral, Every morning, Taking 80mg total DULoxetine (CYMBALTA) 60 mg, Every morning ezetimibe (ZETIA) 10 mg, Nightly Ltqskbtotag-Iejscqwof-Zoqxbs (Trelegy Ellipta) 200-62.5-25 MCG/ACT aerosol powder 1 puff, Inhalation, Every morning folic acid (Folvite) 1 MG tablet Taking 1 tablet five days of the week furosemide (LASIX) 40 mg, Oral, Daily [START ON 08/24/2024] gabapentin (NEURONTIN) 300 mg, Oral, 2 times daily hydroxychloroquine (PLAQUENIL) 200 mg, Oral, Daily insulin lispro (HumaLOG KWIKPEN) 100 UNIT/ML injection pen Inject 2-6 units before meals plus 1:60>150. Max tdd 30 units latanoprost (Xalatan) 0.005 % ophthalmic solution 1 drop, Nightly levothyroxine (SYNTHROID, LEVOXYL) 125 mcg, Oral, Daily before breakfast metoprolol succinate XL (TOPROL-XL) 25 mg, Every morning moxifloxacin (Vigamox) 0.5 % ophthalmic solution Administer 1 drop into the right eye 4 times a day. nitroglycerin (NITROSTAT) 0.4 mg, Every 5 min PRN oxygen (O2) gas 2 L, Nightly Pitavastatin Calcium (Livalo) 4 MG tablet 1 tablet, Oral, Daily prednisoLONE acetate (Pred-Forte) 1 % ophthalmic suspension Administer 1 drop into the right eye 4 times a day. Probiotic Product (acidophilus probiotic blend) capsule 1 capsule, Every morning spironolactone (ALDACTONE) 6.25 mg, Oral, Daily Toujeo SoloStar 14 Units, Subcutaneous, Every morning warfarin (Coumadin) 5 MG tablet Take 2.5 mg on Friday and 5mg the rest of the week and follow up with your warfarin pharmacist. OBJECTIVE Visit Vitals BP 107/62 (BP Location: Right arm, Patient Position: Lying) Pulse 60 Temp 36.6 ??C (97.8 ??F) (Oral) Resp 21 Ht 1.626 m (5' 4 ) Wt 62 kg (136 lb 11 oz) LMP (LMP Unknown) SpO2 100% BMI 23.46 kg/m?? OB Status Postmenopausal Smoking Status Never BSA 1.67 m?? In's and Out's I/O this shift: In: 360 [P.O.:360] Out: - Intake/Output Summary (Last 24 hours) at 08/17/2024 1353 Last data filed at 08/17/2024 0800 Gross per 24 hour Intake 370 ml Output 1200 ml Net -830 ml Weight Weight: 71.1 kg (156 lb 12 oz) 62 kg (136 lb 11 oz) Physical Exam General: NAD Skin: warm, dry, no rashes HEENT: Sclera clear; nose patent; oral mucous membranes moist Heart: RRR; nl S1 S2, no murmurs Lungs: decreased BS on the right side Abdomen: Soft, NT, ND, +BS, no guarding Extremities/MSK: No edema, 2+ peripheral pulses Psych: mood & affect appropriate. Neuro: no focal deficits appreciated Primary Study Review: I personally reviewed the the images/tracings of the following studies: echocardiogram and ECG Lab Review Results from last 7 days Lab Units 08/17/24 0428 SODIUM mmol/L 135* POTASSIUM mmol/L 3.4* CHLORIDE mmol/L 91* CO2 mmol/L 33* BUN mg/dL 22 CREATININE mg/dL 0.98 CALCIUM mg/dL 9.0 BILIRUBIN TOTAL mg/dL 0.4 ALKALINE PHOSPHATASE U/L 100 ALT U/L 19 AST U/L 29 GLUCOSE mg/dL 216* Lab Results Component Value Date GLUCOSE 216 (H) 08/17/2024 CALCIUM 9.0 08/17/2024 NA 135 (L) 08/17/2024 K 3.4 (L) 08/17/2024 CO2 33 (H) 08/17/2024 CL 91 (L) 08/17/2024 BUN 22 08/17/2024 CREATININE 0.98 08/17/2024 Results from last 7 days Lab Units 08/17/24 0428 WBC 10*3/uL 5.50 HEMOGLOBIN g/dL 10.1* HEMATOCRIT % 32.2* PLATELETS 10*3/uL 396* No lab exists for component: NTPROBNP Results from last 7 days Lab Units 08/15/24 0452 08/14/24 1455 NT PROBNP pg/mL 6,053* 6,763* ECG: Reviewed Previous Echo: Echo, Adult Transthoracic Complete Result Date: 07/15/2024 [...] and technique, LV apical thrombus has resolved. Imaging === 08/14/24 === XR CHEST 1 VIEW - Narrative - CLINICAL INDICATION: if c/f pneumothorax after procedure TECHNIQUE: XR CHEST 1 VIEW COMPARISON: August 15, 2024. FINDINGS: Pigtail catheter within the right upper quadrant. Significant improved aeration within the right lung base with trace right-sided pleural effusion. No overt pneumothorax. Cardiac mediastinal silhouette is enlarged. Trace left effusion is again noted. - Impression - Significant improved aeration status post pigtail catheter placement. No overt pneumothorax. CRITICAL RESULT: No. COMMUNICATION: Per this written report. Drafted by Macho Muir MD on 08/17/2024 11:44 AM Final report signed by Macho Muir MD on 08/17/2024 11:45 AM ASSESSMENT/PLAN Problems: 1. Pleural effusion 2. Acute on chronic congestive heart failure, unspecified heart failure type (CMS/HCC) 3. Shortness of breath Doron Felipe is a 74 y.o. female who initially presented to the [facility] for shortness of breath associated with pleural effusions, and Cardiology is being consulted for recommendations and management of coordination of the RHC. Patient has diuresed well. Chest tube placement. It is totally reasonable to obtain RHC to see if evaluated filling pressures are contributing to the pleural space fluid accumulation more than previously thought. Recommendations/Plan: - maintain accurate I/Os - NPO at CT - plan for in and out RHC on 08/18/2024 - continue diuresis The following cardiovascular risk factors and co-morbidities complicates the management of these conditions: Fluid & Electrolyte Disorders - borderline controlled with the following disturbances: hypokalemia and hypomagnesemia This consult will be staffed with the following attending physician: Dr Zamora. Please page the on-call calender operator helper with any further questions. I spent 30 minutes performing the following components of the encounter (on the day of the encounter): reviewing History, examining the patient, reviewing imaging and/or labs, Independently interpreting echocardiogram, ECG and/or other imaging results, ordering tests or procedures, counseling the patient and family/caregiver, and communicating with other health manager respiratory care. Greater than 50% of the time spent on the encounter was face to face providing direct patient care, counseling for the patient/caregiver, and care coordination. Edgar Zaragoza MD Fellow, Department of Cardiovascular Medicine [1] Past Medical History: Diagnosis Date 2019-nCoV acute respiratory disease 05/07/2022 Alcohol use Allergic 1973 Anemia Anxiety Arthritis Asthma Cellulitis 02/13/2024 Cellulitis of right leg 02/12/2024 CHF (congestive heart failure) ([facility]/HCC) Chronic respiratory failure 2019 Clotting disorder ([facility]/HCC) Congenital malformation COPD (chronic obstructive pulmonary disease) ([facility]) 2019 Coronary artery disease CTS (carpal tunnel syndrome) Dental disease Depression Diabetes mellitus type I ([facility]/HCC) Disease of thyroid gland Eczema Fracture of [...] - Was ableto get patient in with [facility] ophthalmology right after our clinic appointment [...] CARDIAC PACEMAKER PLACEMENT N/A Pacemaker Placement from [employer] CARPAL TUNNEL RELEASE N/A Neuroplasty Decompression Median Nerve At Carpal Tunnel from [employer] CERVICAL BIOPSY W/ LOOP ELECTRODE EXCISION 2010 SECTION, CLASSIC 1976, 1979 SECTION, LOW TRANSVERSE N/A Section from [employer] COLONOSCOPY N/A Complete Colonoscopy from [employer] [facility] CORONARY ARTERY BYPASS GRAFT N/A CABG from [employer] EYE SURGERY N/A Eye Surgery from [employer] [facility] FRACTURE SURGERY SPINE SURGERY THORACENTESIS TOE SURGERY Left 02/07/2024 hematoma removal of upper skin on L big toe TONSILLECTOMY N/A Tonsillectomy from [employer] Cosigned by Brenden Zamora MD at 08/19/2024 2:34 PM EDT Associated attestation - Brenden Zamora MD - 08/19/2024 2:34 PM EDT I saw and evaluated the patient with the resident/fellow. I discussed the case with the resident/fellow and agree with the findings and plan as documented. Jeff Zamora MD * Progress Notes - Yvonne Carballo PharmD - 08/17/2024 1:20 PM EDT Antithrombosis Stewardship Pharmacist to Dose Warfarin Management Doron Felipe is a 74 y.o. female who has been consulted for warfarin dosing and monitoring. Date INR Dose 08/14 2.6 Hold 8 2.2 Hold 08/16 2.2 Hold 08/17 1.5 Hold Current Hematologic Labs INR (no units) Date/Time Value 08/17/2024 0428 1.5 (H) HGB (g/dL) Date/Time Value 08/17/2024 0428 10.1 (L) HCT (%) Date/Time Value 08/17/2024 0428 32.2 (L) Platelet Count (10*3/uL) Date/Time Value 08/17/2024 0428 396 (H) Subjective Warfarin Indication: Atrial fibrillation Target INR: 2-3 Warfarin Prior to Admission: (Last dose on Sunday 08/13) Prior to Admission Daily Warfarin Regimen: 5mg except on Tuesdays 2.5 mg Assessment Warfarin Sensitivity Risk Factors: Elderly, age > 65;Chronic liver, renal, or thyroid disease Today's INR : Therapeutic Plan Warfarin Plan: Hold Reason For Holding Warfarin: For procedure (chest tube/pleurodesis) Bridging Agent in Conjunction With Warfarin? : No Patient Education : Incomplete Yvonne Carballo PharmD, [facility] Internal Medicine Clinical Pharmacist * Progress Notes - Tk Hale - 08/17/2024 12:13 PM EDT Images from the original note were not included. Hospital Medicine Progress Note Subjective Length of stay: 3 days Brief Patient Summary: Doron Felipe is a 74-year-old woman with a PMH significant for SLE on Plaquenil followed by [facility], chronic bl pleural effusions, chronic hypoxic respiratory failure requiring 2-4 L/min at baseline, DM, hypothyroidism, HFpEF, and pacemaker who presented to the ED for progressively worsening shortness for breath. Subjective Patient doing better with breathing today, still on nasal cannula. She is pleased to have seen ophtho and restarted her mycophenolate. Says she is urinating but not too much. Receiving pigtail chest tube to drain right side effusion today. She would like to have her right heart catheterization while admitted. No other acute concerns. Review of Systems Review of Systems All other systems reviewed and are negative. Objective Objective Last Recorded Vitals Blood pressure 107/62, pulse 60, temperature 36.6 ??C (97.8 ??F), temperature source Oral, resp. rate 21, height 1.626 m (5' 4 ), weight 62 kg (136 lb 11 oz), SpO2 100%. Physical Exam Constitutional: General: She is not in acute distress. HENT: Nose: Comments: Nasal cannula in Mouth/Throat: Mouth: Mucous membranes are moist. Cardiovascular: Rate and Rhythm: Normal rate. Pulmonary: Effort: Pulmonary effort is normal. Comments: Decreased r sided breath sounds Abdominal: General: Abdomen is flat. Palpations: Abdomen is soft. Tenderness: There is no abdominal tenderness. Musculoskeletal: Right lower leg: No edema. Skin: General: Skin is warm. Neurological: Mental Status: She is alert and oriented to person, place, and time. Relevant Results Labs in last 18 hours CBC WBC 5.50 Hb 10.1 (L) Plt 396 (H) Hct 32.2 (L) ANC ?? INR 1.5 (H), PTT ??, Anti-Xa ?? BMP Na 135 (L) Cl 91 (L) BUN 22 Glu 216 (H) K 3.4 (L) Co2 33 (H) Cr 0.98 Ca 9.0 iCa ?? Mg 1.8 (L), Phos ?? Lactate ?? LFT AST 29 AlkPhos 100 T Prot 7.3 ALK 19 Bili 0.4 Alb ?? D.Bili ?? Assessment/Plan Assessment & Plan Principal Problem: Acute on chronic hypoxic respiratory failure Active Problems: Acquired hypothyroidism SLE (systemic lupus erythematosus) (CMS/HCC) Pleural effusion Presence of cardiac pacemaker Type 2 diabetes mellitus without complication, with long-term current use of insulin Heart failure with preserved ejection fraction (CMS/HCC) Atrial fibrillation (CMS/HCC) Doron Felipe is a 74-year-old woman with recurrent pleural effusions, most likely associated with her Lupus. She requires therapeutic thoracentesis periodically, and has had about 4 in the past. Sheis on a diuretic regimen supervised by Cardiology in the setting of her ischemic heart disease and HFpEF. She has chronic hypoxic respiratory failure requiring oxygen per nasal cannula at 2-4 L/min and has had worsening O2 requirement recently. Today: - Lasix 40 mg IV TID - I/Os - Oxygen as needed/tolerated - Chest tube drain - Consult cardiology for RHC - Adjust insulin dosing Acute: #Acute on chronic hypoxic respiratory failure secondary to pleural effusions iso SLE vs. HFpEF Pleural effusion: chronic since 2020 Has required multiple hospitalizations: -She is status post left pleuroscopy, pleural biopsy, PleurX placement and chemical pleurodesis 11/19/2022. - Chest tube placed 08/17/24 per Pulm IR Plan: - IV Lasix as above - Monitor chest tube output; pulm following; pleural fluid studies collected -continue Plaquenil which is part of her SLE chronic management. - consulted cardiology #Electrolyte disturbance #Hypokalemia, Hypomagnesemia - Replete as needed. Given 60 mg PO KCl and 2 g IV Mag. - Monitor #Acute exacerbation of heart failure with preserved ejection fraction: Follows with Cardiology as an outpatient. May be contributing to the worsening effusions and volumestatus. -had echocardiogram 1 month ago. Demonstrated diastolic dysfunction with preserved LVEF. Plan: -continue with diuretic therapy with furosemide and spironolactone -Continue to hold metoprolol for now. -low-sodium diet -measure daily weights - cardiology consulted, for RHC Chronic: #Systemic lupus erythematosus: -on Plaquenil and followed by Rheum - continue mycophenolate -no clinical signs of acute lupus flare #Atrial fibrillation: -she is on warfarin chronically and has a pacemaker device. -Continue to hold warfarin while drain in and possibility of RHC Hypothyroidism: -continue outpatient levothyroxine Diabetes mellitus type 2: -Increase glargine to 14u nightly, which is home dose - continue SSI, resistant protocol -continue glucose monitoring Fluids: PO DVT Ppx: Heparin Diet: Regular diet 2g Na Code status: Full Code Discharge Planning: Anticipated discharge to: Home Anticipated discharge needs: None Family Contact: Ruthie JamilDoron Follow-up: PCP Cardiology Pulmonology Rheumatology Future Appointments Date Time Provider Department Center 08/19/2024 1:30 PM [facility] 09/08/2024 11:20 AM Alisa Kunz, DO [facility] 10/07/2024 4:00 PM [facility] 10/27/2024 1:40 PM Anne-Marie Kolb APRN [facility] 11/29/2024 10:20 AM Alisa Kunz, DO [facility] 02/02/2025 10:30 AM Sadiq Osborne MBBS [facility] Associated attestation - Kenneth James MD - 08/17/2024 4:37 PM EDT I saw and evaluated the patient with the medical/INFORMATICS NURSE SPECIALIST/PA student. I discussed the case with the medical/INFORMATICS NURSE SPECIALIST/PA student and agree with the findings and plan as documented. I personally performed the Examand Medical Decision Making. Acute threat to life/bodily function: Acute hypoxic respiratory failure. High risk: Drug therapy requiring intensive monitoring for toxicity: Lasix, monitoring urine outputand electrolytes. * Progress Notes - Boby Rouse APRN - 08/17/2024 10:47 AM EDT Subjective No acute distress. No new complaints. Dyspnea improved post diuresis now on 4L nasal cannula able to walk to restroom. Agreeable for right chest tube with goal of potential chemical pleurodesis - discussed plan in depth with patient/daughter. Review of Systems Constitutional: Negative for chills and fever. Respiratory: Positive for shortness of breath. Cardiovascular: Negative for chest pain, palpitations and leg swelling. Gastrointestinal: Negative for abdominal pain, nausea and vomiting. Neurological: Negative for headaches. Psychiatric/Behavioral: Negative for confusion. Objective Vitals Temp: [36.3 ??C (97.3 ??F)-37.2 ??C (99 ??F)] 36.4 ??C (97.6 ??F) Heart Rate: [59-65] 60 Resp: [13-28] 17 BP: (104-163)/(56-72) 115/66 Physical Exam Constitutional: General: She is not in acute distress. Appearance: She is ill-appearing. She is not toxic-appearing. HENT: Head: Normocephalic and atraumatic. Right Ear: External ear normal. Left Ear: External ear normal. Nose: Nose normal. Mouth/Throat: Mouth: Mucous membranes are moist. Pharynx: Oropharynx is clear. Eyes: General: No scleral icterus. Extraocular Movements: Extraocular movements intact. Pulmonary: Effort: No tachypnea, accessory muscle usage or respiratory distress. Abdominal: General: There is no distension. Palpations: Abdomen is soft. Skin: General: Skin is warm and dry. Capillary Refill: Capillary refill takes less than 2 seconds. Coloration: Skin is not jaundiced. Neurological: Mental Status: She is alert and oriented to person, place, and time. Mental status is at baseline. Psychiatric: Mood and Affect: Mood normal. Behavior: Behavior normal. Assessment & Plan Doron Felipe is a 74 year old female life long non-smoker with a past medical history of SLE, HFpEF, A-fib, DM1, and CAD. She presented to on 08/14/2024 via emergency room with dyspnea. Interventional Pulmonology was consulted by Hospital Medicine regarding pleural effusion . # Right Pleural Effusion - Less likely related to SLE given transudate x2. - More likely related to HFpEF and/or pulmonary hypertension related. # Left Pleural Effusion - Etiology of this left side SLE. - Status post pleuroscopy and pleural biopsy with chemical (iodine) pleurodesis 11/2022 with markedimprovement in pleural effusion. Had a left tunneled pleural cathter which was removed 01/2023. - Left pleural biopsy showed CHRONIC ORGANIZING PLEURITIS WITH FOCAL REACTIVE MESOTHELIUM AND HEMOSIDERIN-LADEN MACROPHAGES - Left fluid studies lymphoctic exudate with negative micro and cytology. Recommendations: - Obtain/maintain euvolemia - Continue patients SLE medications. Hold NSAIDS/Steroids in anticipation of chemical pleurodesis -okay with low dose aspirin. - Consult Cardiology for consideration of inpatient Right heart catheterization. Concern for Group 1 versus 3 Pulmonary hypertension. Proper diagnosis will be crucial for treatment and preventing further hospitalization (several recently for similar issue). Plan: - Right pigtail chest tube placement today. Will drain all right pleural fluid. Pending both outputand expansion of right lung we will consider chemical pleurodesis on right side. Follow up chest x-ray post placement and tomorrow morning. This patient and plan of care has been discussed with Dr. Edward Bojorquez. Boby Rouse APRN Pager: [phone] * Procedures - Boby Rouse APRN - 08/17/2024 10:44 AM EDT Chest Tube Insertion Side of procedure: Right Indication: Large recurrent right pleural effusion. Slurry chemical pleurodesis. Time out: Yes Position: Supine Procedure Detail Patient was in the supine position. Ultrasound was performed and the findings were large free flowing right pleural effusion. The procedure site was marked and cleaned in sterile fashion, 20ml of lidocaine 1% was administered. A 14 Fr pleural catheter was inserted 5 th intercostal space. Following this fluid was removed. Immediately post procedure a dressing was placed. Fluid character Color: orange Amount: 200ml Complications: none Recommendation Follow up chest x-ray Drain to water seal overnight then switch to -[id number] suction tomorrow morning. Hold NSAIDS and steroids as possible. Continue lupus medications. INR <2.0 for now. * Care Plan - Patricia Hathaway RN - 08/17/2024 2:57 AM EDT Problem: Adult Inpatient Plan of Care Goal: Plan of Care Review Outcome: Ongoing, Progressing Goal: Patient-Specific Goal (Individualized) Outcome: Ongoing, Progressing Goal: Absence of Hospital-Acquired Illness or Injury Outcome: Ongoing, Progressing Goal: Optimal Comfort and Wellbeing Outcome: Ongoing, Progressing Goal: Readiness for Transition of Care Outcome: Ongoing, Progressing Problem: Mobility Impairment Goal: Optimal Mobility Outcome: Ongoing, Progressing * Care Plan - Daiana Marion RN - 08/16/2024 9:58 PM EDT Problem: Adult Inpatient Plan of Care Goal: Plan of Care Review Outcome: Ongoing, Progressing Flowsheets (Taken 08/16/20242156) Progress: no change Plan of Care Reviewed With: patient Goal: Patient-Specific Goal (Individualized) Outcome: Ongoing, Progressing Flowsheets (Taken 08/16/20241999) Patient/Family-Specific Goals (Include Timeframe): Patient will have greater than 92% O2 saturationthroughout shift. Individualized Care Needs: O2 management Anxieties, Fears or Concerns: Possible thoracentesis Goal: Absence of Hospital-Acquired Illness or Injury Outcome: Ongoing, Progressing Goal: Optimal Comfort and Wellbeing Outcome: Ongoing, Progressing Goal: Readiness for Transition of Care Outcome: Ongoing, Progressing Problem: Mobility Impairment Goal: Optimal Mobility Outcome: Ongoing, Progressing * Significant Event - Chris Reich MD - 08/16/2024 6:32 PM EDTAssociated Order(s): Inpatient consult to Ophthalmology Inpatient consult to Ophthalmology Consult performed by: Chris Reich MD Consult ordered by: Doron Thayer MD Reason for consult: Right eye contact lens removal Doron Felipe is a 74 y.o. female now s/p eye procedure with Dr. Nahid Grimaldo three weeks ago.Patient reporting that she is unsure what eye procedure she underwent, but thinks it had to do withscraping calcium off the surface of her right eye. Continues on pred forte and an abx drop three times daily per his prior recommendations. Right eye with bandage contact lens in place, patient reporting that this needed to have been removed and wishes for ophthalmology to remove it. Brief exam with right eye temporal whitening over edge of cornea likely representing prior pterygium removal. Contact lens removed without complication. No further ophthalmologic intervention. * Progress Notes - Kelly Halen - 08/16/2024 12:41 PM EDT Images from the original note were not included. Hospital Medicine Progress Note Subjective Length of stay: 2 days Brief Patient Summary: Doron Felipe is a 74-year-old woman with a PMH significant for SLE on Plaquenil followed by [facility], chronic bl pleural effusions, chronic hypoxic respiratory failure requiring 2-4 L/min at baseline, DM, hypothyroidism, HFpEF, and pacemaker who presented to the ED for progressively worsening shortness for breath. Subjective Patient doing better with breathing now on nasal cannula. She says she needs her mycophenolate, which she has been taking for Lupus. She also says she needs to see ophthalmology for a procedure she had done on her eye. She would also like to have her right heart catheterization while admitted. Review of Systems Review of Systems All other systems reviewed and are negative. Objective Objective Last Recorded Vitals Blood pressure 104/71, pulse 64, temperature 36.8 ??C (98.2 ??F), temperature source Oral, resp. rate 13, height 1.626 m (5' 4 ), weight 67.6 kg (149 lb 0.5 oz), SpO2 100%. Physical Exam Constitutional: General: She is not in acute distress. HENT: Nose: Comments: Nasal cannula in Mouth/Throat: Mouth: Mucous membranes are moist. Cardiovascular: Rate and Rhythm: Normal rate. Pulmonary: Effort: Pulmonary effort is normal. Comments: Decreased r sided breath sounds Abdominal: General: Abdomen is flat. Palpations: Abdomen is soft. Tenderness: There is no abdominal tenderness. Musculoskeletal: Right lower leg: No edema. Skin: General: Skin is warm. Neurological: Mental Status: She is alert and oriented to person, place, and time. Relevant Results Labs in last 18 hours CBC WBC 6.57 Hb 9.6 (L) Plt 376 (H) Hct 29.6 (L) ANC ?? INR 2.2 (H), PTT ??, Anti-Xa ?? BMP Na 132 (L) Cl 96 (L) BUN 19 Glu 271 (H) K 4.0 Co2 27 Cr 0.82 Ca 8.5 (L) iCa ?? Mg 1.5 (L), Phos ?? Lactate ?? LFT AST ?? AlkPhos ?? T Prot ?? ALK ?? Bili ?? Alb ?? D.Bili ?? Assessment/Plan Assessment & Plan Principal Problem: Acute on chronic hypoxic respiratory failure Active Problems: Acquired hypothyroidism SLE (systemic lupus erythematosus) (CMS/HCC) Pleural effusion Presence of cardiac pacemaker Type 2 diabetes mellitus without complication, with long-term current use of insulin Heart failure with preserved ejection fraction (CMS/HCC) Atrial fibrillation (CMS/HCC) Doron Felipe is a 74-year-old woman with recurrent pleural effusions, most likely associated with her Lupus. She requires therapeutic thoracentesis periodically, and has had about 4 in the past. Sheis on a diuretic regimen supervised by Cardiology in the setting of her ischemic heart disease and HFpEF. She has chronic hypoxic respiratory failure requiring oxygen per nasal cannula at 2-4 L/min and has had worsening O2 requirement recently. Today: - Lasix 100 mg IV - I/Os - Oxygen as needed/tolerated - Pulm IR consulted - Restart Mycophenolate Acute: #Acute on chronic hypoxic respiratory failure secondary to pleural effusions iso SLE Pleural effusion: chronic since 2020 Has required multiple hospitalizations: -She is status post left pleuroscopy, pleural biopsy, PleurX placement and chemical pleurodesis 11/19/2022. Plan: - IV Lasix as above -continue Plaquenil which is part of her SLE chronic management. - Pulm IR to evaluate, possible intervention #Electrolyte disturbance #Hypokalemia, Hypomagnesemia - Replete as needed. Given 60 mg PO KCl and 2 g IV Mag. - Monitor Chronic: #Heart failure with preserved ejection fraction: Follows with Cardiology as an outpatient. May be contributing to the worsening effusions and volumestatus. -had echocardiogram 1 month ago. Demonstrated diastolic dysfunction with preserved LVEF. Plan: -continue with diuretic therapy with furosemide and spironolactone -Continue to hold metoprolol for now. -low-sodium diet -measure daily weights - Consider cardiology consult, for RHC #Systemic lupus erythematosus: -on Plaquenil and followed by Rheum - restart mycophenolate -no clinical signs of acute lupus flare #Atrial fibrillation: -she is on warfarin chronically and has a pacemaker device. -Hold warfarin and monitor INR prior to possible thoracentesis. - Pharmacy contacted to dose Hypothyroidism: -continue outpatient levothyroxine Diabetes mellitus type 2: -continue long-acting insulin with glargine and sliding scale insulin while inpatient. -continue glucose monitoring Fluids: PO DVT Ppx: Heparin Diet: Regular diet 2g Na Code status: Full Code Discharge Planning: Anticipated discharge to: Home Anticipated discharge needs: None Family Contact: Ruthie Jamil John Follow-up: PCP Cardiology Pulmonology Rheumatology Future Appointments Date Time Provider Department Center 08/19/2024 1:30 PM [facility] 09/08/2024 11:20 AM Alisa Kunz, DO [facility] 10/07/2024 4:00 PM [facility] 10/27/2024 1:40 PM Anne-Marie Kolb APRN [facility] [place] 11/29/2024 10:20 AM Alisa Kunz, [facility] 02/02/2025 10:30 AM Sadiq Osborne MBBS [facility] Associated attestation - Doron Thayer MD - 08/16/2024 6:59 PM EDT I saw and evaluated the patient with the medical/INFORMATICS NURSE SPECIALIST/PA student. I discussed the case with the medical/INFORMATICS NURSE SPECIALIST/PA student and agree with the findings and plan as documented. I personally performed the Examand Medical Decision Making. Continued hypoxia but weaned to nasal canula. Based on UOP, increased lasix dose to 100mg IV for improved diuresis and will monitor BMP to avoid hypokalemia. Consulted pulm for thoracentesis and restarted home mycophenolate. Per discussion with pulm patient will likely need right heart cath while inpatient. * Consults - Boby Rouse APRN - 08/16/2024 12:37 PM EDTAssociated Order(s): Inpatient consult to Pulmonology Inpatient consult to Pulmonology Consult performed by: Boby Rouse APRN Consult ordered by: Boby Rouse APRN Reason for consult: pleural effusion Reason For Consult Pleural effusion Requesting Service: Doron Thayer MD - Internal Medicine Requested Date/Time: 08/16/2024 1230 History Of Present Illness Doron Felipe is a 74 year old female life long non-smoker with a past medical history of SLE, HFpEF, A-fib, DM1, and CAD. She presented to on 08/14/2024 via emergency room with dyspnea. Interventional Pulmonology was consulted by Hospital Medicine regarding pleural effusion . Chest x-ray this admission yesterday shows no significant left pleural effusion and large right pleural effusion. Right pleural fluid has been twice lymphocytic transudate by lights and modified light's criteria's. With negative gram stain/culture and cytology. She has had two prior right thoracentesis this yearwith relief in dyspnea. LEFT Pleuroscopy with pleural biopsy and chemical pleurodesis with Povidone iodine was performed on11/19/2022. 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 She also has a pleurx catheter placed on left side. The left pleurx has not had significant output since 12/07/2022 and was removed 01/2023. She is following with Rheumatology at Dr. Yee and Haresh for SLE. Previous lab results showed positive MOON at 1:640 and anti-DNA antibodies measured at 382 via [facility] Additionally, ANCA testing by IFA indicated a P-ANCA pattern at >1:1280, with negative results for MPO and IL-3. She is on plaqunil and MMF. Follows with Cardiology as outpatient regarding HFpEF and A-fib. Planning right heart cath for evaluation of likely pulmonary hypertension but not scheduled for about 1 month out. Last ECHO 07/15/2024 showed LVEF 55-60 but right ventricle couldn't be visualized on prior echo in 05/2024 RVSP was 55 with elevated atrial pressures. 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 Lives in [place] with cattle and dogs - no felines or birds. Family History: Mother: Alpha-1, Stroke, COPD, Heart disease Father: COPD Allergies Morphine, Morphine and codeine, Pravastatin, Azathioprine, Cephalexin, Codeine, Penicillins, Rosuvastatin, Seasonal ic [cholestatin], Statins, Tetracycline, and Tetracyclines & related Medications Current Medications[1] Review of Systems Review of Systems Constitutional: Negative for chills and fever. Respiratory: Positive for shortness of breath. Negative for cough. Cardiovascular: Negative for chest pain and palpitations. Gastrointestinal: Negative for abdominal pain, nausea and vomiting. Neurological: Negative for headaches. Hematological: Does not bruise/bleed easily. Psychiatric/Behavioral: Negative for confusion. Physical Exam Physical Exam Constitutional: Appearance: She is not toxic-appearing or diaphoretic. HENT: Head: Normocephalic and atraumatic. Right Ear: External ear normal. Left Ear: External ear normal. Nose: Nose normal. Mouth/Throat: Mouth: Mucous membranes are moist. Pharynx: Oropharynx is clear. Eyes: Extraocular Movements: Extraocular movements intact. Cardiovascular: Rate and Rhythm: Normal rate. Pulses: Normal pulses. Pulmonary: Effort: Accessory muscle usage present. No tachypnea or respiratory distress. Abdominal: General: There is no distension. Palpations: Abdomen is soft. Musculoskeletal: Cervical back: Normal range of motion and neck supple. Right lower leg: No edema. Left lower leg: No edema. Skin: General: Skin is warm and dry. Capillary Refill: Capillary refill takes less than 2 seconds. Findings: Bruising and wound present. Neurological: Mental Status: She is alert and oriented to person, place, and time. Mental status is at baseline. Last Recorded Vitals Blood pressure 104/71, pulse 64, temperature 36.8 ??C (98.2 ??F), temperature source Oral, resp. rate 13, height 1.626 m (5' 4 ), weight 67.6 kg (149 lb 0.5 oz), SpO2 100%. Results Review {Vanishing Link Review Results :[id number] I have reviewed the latest lab and imaging results. Assessment & Plan # Right Pleural Effusion - Less likely related to SLE given transudate x2. - More likely related to HFpEF and/or pulmonary hypertension related. # Left Pleural Effusion - Etiology of this left side SLE. - Status post pleuroscopy and pleural biopsy with chemical (iodine) pleurodesis 11/2022 with markedimprovement in pleural effusion. Had a left tunneled pleural cathter which was removed 01/2023. - Left pleural biopsy showed CHRONIC ORGANIZING PLEURITIS WITH FOCAL REACTIVE MESOTHELIUM AND HEMOSIDERIN-LADEN MACROPHAGES - Left fluid studies lymphoctic exudate with negative micro and cytology. Recommendations: - Obtain euvolemia - Continue patients SLE medications - Consult Cardiology for consideration of inpatient Right heart catheterization. Concern for Group 1 versus 3 Pulmonary hypertension. Proper diagnosis will be crucial for treatment and preventing further hospitalization (several recently for similar issue). Plan: - When INR </= 2.[address] pigtail chest tube (and we will manage). Will drain all right pleural fluid. Pending both output and expansion of right lung we will consider chemical pleurodesis on right side. This patient and plan of care has been discussed with Dr. Edward Bojorquez. Boby Rouse, YAMILET Pager: [phone] [1] Current Facility-Administered Medications Medication Dose Route Frequency Provider Last Rate Last Admin aspirin chewable tablet 81 mg 81 mg Oral Daily Arben Ibarra MD 81 mg at 08/16/24 0822 busPIRone (Buspar) tablet 10 mg 10 mg Oral BID Arben Ibarra MD cetirizine (ZyrTEC) tablet 10 mg 10 mg Oral Nightly Arben Ibarra MD 10 mg at 08/15/242009 glucose (Glutose) 40 % oral gel 15-30 grams of glucose 15-30 grams of glucose Sublingual q15 min PRN Arben Ibarra MD 15 grams of glucose at 08/15/24 0610 Or dextrose 50 % solution 12.5-25 g 12.5-25 g Intravenous q15 min PRN Arben Ibarra MD Or glucagon (human recombinant) injection 1 mg 1 mg Intramuscular q15 min PRN Arben Ibarra MD DULoxetine (Cymbalta) DR capsule 80 mg 80 mg Oral q AM Arben Ibarra MD 80 mg at 08/16/24 05 folic acid (Folvite) tablet 1 mg 1 mg Oral Daily Arben Ibarra MD 1 mg at 08/16/24821 furosemide (Lasix) injection 40 mg 40 mg Intravenous q8h Arben Ibarra MD 40 mg at 08/16/24 08 gabapentin (Neurontin) capsule 300 mg 300 mg Oral BID Arben Ibarra MD 300 mg at 08/16/24 0823 hydroxychloroquine (Plaquenil) tablet 200 mg 200 mg Oral Daily Arben Ibarra MD 200 mg at 08/15/24 1641 insulin glargine-yfgn 100 UNIT/ML injection 10 Units 10 Units Subcutaneous Nightly Doron Thayer MD insulin lispro (Admelog) 100 units/mL injection - Correction - Standard Dose 0-5 Units SubcutaneousTID with meals Arben Ibarra MD 2 Units at 08/16/24 1144 insulin lispro (Admelog) injection - Correction - Nighttime Dose 0-3 Units Subcutaneous Twice at night Arben Ibarra MD ipratropium-albuterol (Duo-Neb) 0.5-2.5 mg/3 mL nebulizer solution 3 mL 3 mL Nebulization q6h PRN July Vargas MD 3 mL at 08/15/24 0435 latanoprost (Xalatan) 0.005 % ophthalmic solution 1 drop 1 drop Both Eyes Nightly Arben Ibarra MD 1 drop at 08/15/242010 levothyroxine (Synthroid, Levoxyl) tablet 125 mcg 125 mcg Oral q AM Arben Ibarra MD 125 mcg at08/16/24 05 melatonin tablet 6 mg 6 mg Oral Nightly PRN July Vargas MD 6 mg at 08/15/242009 metoprolol succinate XL (Toprol-XL) 24 hr tablet 25 mg 25 mg Oral Daily Arben Ibarra MD 25 mg at 08/16/24821 mycophenolate (Cellcept) capsule 1,000 mg 1,000 mg Oral BID Doron Thayer MD 1,000 mg at sodium chloride 0.9 % flush 10 mL 10 mL Intravenous q12h Arben Ibarra MD 10 mL at 08/16/24 0528 And sodium chloride 0.9 % flush 10 mL 10 mL Intravenous PRN Arben Ibarra MD spironolactone (Aldactone) tablet 12.5 mg 12.5 mg Oral Daily Arben Ibarra MD 12.5 mg at 08/16/24 0822 [Held by provider] warfarin (Coumadin) intermittent dosing 1 each 1 each Oral See admin instructions Arben Ibarra MD * Yvonne Potter, PharmD - 08/16/2024 10:47 AM EDT Images from the original note were not included. [id number] Warfarin Brand Name(s): Coumadin??, Jantoven??; also available generically ?? This branded product is no longer on the market. Generic alternatives may be available. IMPORTANT WARNING: Warfarin may cause severe bleeding [...] doctor or pharmacist will give you the fiber optic splicer's patient information sheet (Medication Guide) when you begin treatment with warfarin and each time you refill your prescription. Read the information carefully and ask your doctor or pharmacist if you have any questions. You can also visit the Food and Drug Administration (FDA) website (https://www.fda.gov/downloads/Drugs/DrugSafety/jqe048699.pdf) or the fiber optic splicer's website to obtain the Medication Guide. Talk [...] PRECAUTIONS should I follow? Before taking warfarin, ? tell your doctor and pharmacist if you are allergic to warfarin, any other medications, or any ofthe ingredients in warfarin tablets. Ask your pharmacist or check the Medication Guide for a list of the ingredients. ? do not take two or more medications that contain warfarin at the same time. Be sure to check withyour doctor or pharmacist if you are uncertain if a medication contains warfarin or warfarin sodium. ? tell your doctor and pharmacist what prescription and nonprescription medications, vitamins, and nutritional supplements you are taking or plan to take while taking warfarin. Your doctor may changethe doses of your medications or monitor you carefully for side effects. ? the following nonprescription or herbal products may [...] taking warfarin. Do not start any of these medications while taking warfarin without discussing with your healthcare provider. ? tell your doctor if you have or have ever had diabetes. Also tell your doctor if you have an infection, a gastrointestinal illness such as diarrhea, or sprue (an allergic reaction to protein found in grains that causes diarrhea), or an indwelling catheter (a flexible plastic tube that is placed into the bladder to allow the urine to drain out). ? Tell your doctor if you are , think you might be , or plan to become while taking warfarin. women should not take warfarin unless they have a mechanical heart valve. Talk to your doctor about the use of effective control while taking warfarin. If you become while taking warfarin, call your doctor immediately. Warfarin may harm the fetus. ? tell your doctor if you are breast-feeding. ? if you are having surgery, including dental surgery, or any type of medical or dental procedure, tell the doctor or dentist that you are taking warfarin. Your doctor may tell you to stop taking warfarin before the surgery or procedure or change your dosage of warfarin before the surgery or procedure. Follow your doctor's directions carefully and keep all appointments with the laboratory if yourdoctor orders blood tests to find the best dose of warfarin for you. ? ask your doctor about the safe use of alcoholic beverages while you are taking warfarin. ? tell your doctor if you use tobacco products. Cigarette smoking may decrease the effectiveness ofthis medication. What SPECIAL DIETARY instructions should I follow? Eat a normal, healthy diet. Some foods and beverages, particularly those that contain vitamin K, can affect how warfarin works for you. Ask your doctor or pharmacist for a list of foods that contain vitamin K. Eat consistent amounts of vitamin K-containing food on a cewk-me-nzek basis. Do not eat large amounts of [...] IMPORTANT WARNING section, call your doctor immediately: ? hives ? rash ? itching ? difficulty breathing or swallowing ? swelling of the face, throat, tongue, lips, or eyes ? hoarseness ? chest pain or pressure ? swelling of the hands, feet, ankles, or lower legs ? fever ? infection ? nausea ? vomiting ? diarrhea ? extreme tiredness ? lack of energy ? loss of appetite ? pain in the upper right part of the stomach ? yellowing of the skin or eyes ? flu-like symptoms You should know that warfarin [...] be awakened, immediately call emergency services at 911. Symptoms of overdose may include the following: ? bloody or red, or tarry bowel movements ? spitting or coughing up blood ? heavy bleeding with your menstrual period ? pink, red, or dark brown urine ? coughing up or vomiting material that looks like coffee grounds ? small, flat, round red spots under the skin ? unusual bruising or bleeding ? continued oozing or bleeding from minor cuts [...] of all of the prescription and nonprescription (txwv-efv-wrfapym) medicines you are taking, as well as [...] or pharmacist about specific clinical use. The [employer] represents that the information provided hereunder was formulated with a reasonable standard of care, and in conformity with professional standards in the field. The [employer] makes no representations or warranties, express or implied, including, but not limited to, any implied warranty of merchantability and/or fitness for a particular purpose, with respect to such information and specifically disclaims all such warranties. Users are advised that decisions regarding drug therapy are complex medical decisions requiring the independent, informed decision of an appropriate health residential child care counselor, and the information is provided for informational purposes only. The entire monograph for a drug should be reviewed for a thorough understanding of the drug's actions, uses and side effects. The [employer] does not endorse or recommend the use of any drug.The information is not a substitute for medical care. AHFS?? Patient Medication Information?. ?? Copyright, 2023. The [employer]??, [address], [address], [place], [place]. All Rights Reserved. Duplication for commercial use must be authorized by [facility]. Selected Revisions: August 22, 2016. AHFS?? Patient Medication Information?. ?? Copyright, 2024 * Progress Notes - Yvonne Carballo, PharmD - 08/16/2024 10:46 AM EDT Antithrombosis Stewardship Pharmacist to Dose Warfarin Management Doron Felipe is a 74 y.o. female who has been consulted for warfarin dosing and monitoring. Date INR Dose 67 2.6 hold for thoracentesis 8 2.2 hold for thoracentesis 08/16 2.2 hold for thoracentesis Current Hematologic Labs INR (no units) Date/Time Value 08/16/2024145 2.2 (H) HGB (g/dL) Date/Time Value 08/16/2024145 9.6 (L) HCT (%) Date/Time Value 08/16/2024145 29.6 (L) Platelet Count (10*3/uL) Date/Time Value 08/16/2024145 376 (H) Subjective Warfarin Indication: Atrial fibrillation Target INR: 2-3 Warfarin Prior to Admission: (Last dose on Sunday 08/13) Prior to Admission Daily Warfarin Regimen: 5mg except on Tuesdays 2.5 mg Assessment Warfarin Sensitivity Risk Factors: Elderly, age > 65;Chronic liver, renal, or thyroid disease Today's INR : Therapeutic Plan Warfarin Plan: Hold Reason For Holding Warfarin: For procedure (thoacentesis planned for 08/16/24) Bridging Agent in Conjunction With Warfarin? : No Patient Education : Neeru Carballo PharmD, [facility] Internal Medicine Clinical Pharmacist * Progress Notes - Deangelo Mak - 08/16/2024 9:33 AM EDT PHYSICAL THERAPY EVALUATION Patient Name Doron Felipe Session Date 08/16/2024 Total Treatment Time 38 min PT Discharge Recommendations Home with 24 hour assistance, Home health PT, Home health OT Equipment Recommendations Patient owns appropriate equipment HISTORY Doron Felipe is 74 y.o. female admitted 08/14/2024 for work-up of Acute on chronic hypoxic respiratory failure. Hospital Course 1. Pleural effusion 2. Acute on chronic congestive heart failure, unspecified heart failure type (CMS/HCC) 3. Shortness of breath Procedures (if applicable) Past Medical History Patient has a past medical history of 2019-nCoV acute respiratory disease (05/07/2022), Alcohol use, Allergic (1972), Anemia, Anxiety, Arthritis, Asthma, Cellulitis (02/13/2024),Cellulitis of right leg (02/12/2024), CHF (congestive heart failure) (CMS/HCC), Chronic respiratoryfailure (2019), Clotting disorder (CMS/HCC), Congenital malformation, COPD (chronic obstructive pulmonary disease) (CMS/HCC) (2018), Coronary artery disease, CTS (carpal tunnel syndrome), Dental disease, Depression, Diabetes mellitus type I (CMS/HCC), Disease of thyroid gland, Eczema, Fracture of left proximal fibula (04/09/2021), Heart disease, Hepatitis B (1960), HL (hearing loss), Hypertension, Hyperthyroidism (1960), Hypothyroidism (1960), Infectious viral hepatitis, Myocardial infarction (CMS/HCC), Peripheral neuropathy, Pneumonia (06/01), Post- menopausal bleeding (05/08/2021), 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 Past Surgical History Patient has a past surgical history that includes Tonsillectomy (N/A); Cardiac pacemaker placement (N/A); Colonoscopy (N/A); Coronary artery bypass graft (N/A); section, low transverse (N/A); Carpal tunnel release (N/A); Eye surgery (N/A); Adenoidectomy; section, classic (1976, 1979); Fracture surgery; Spine surgery; Cervical biopsy w/ loop electrode excision (2010); Breast biopsy (Right, 2013); Adrenal gland surgery; Thoracentesis; Ankle fracture surgery; and Toe Surgery (Left, 02/07/2024). PRECAUTIONS Weight Bearing Precautions (if applicable) ROM Restrictions (if applicable) Medical Precautions Yes Medical Precautions: Fall precautions SUBJECTIVE PARTICIPANTS IN CARE Visitors Present No Subjective Report Pt has NOT been: * Ambulating hallway distances * Ambulating in-room distances * Transferring Bed <> Chair since being admitted to the hospital. Aeronautical Engineering Officer (if applicable) HOME LIVING/SET-UP Lives With Spouse Home Type House Home Equipment Cane, Rolling walker, Wheelchair-manual (Home O2) Home Layout One level, Stairs to enter with rails Number of Stairs: 3 Bathroom Layout Bathroom: Tub/Shower: Walk-in shower, Shower chair, Grab bars, Handheld shower head(in process of renovating shower) Bathroom: Toilet: Tall (in process of replacing standard with tall toilet) Additional Comments Caregiver 5days/week, 2-5hrs/day PRIOR LEVEL OF FUNCTION Assist at Home Spouse, Caregiver Level of Mobility Ambulatory- household only (use of w/c in community) Mobility Cass Independent gait with device History of Falls No Overall ADL Performance Needs assistance Additional ADL Performance Detail Bathing: Needs assist Upper Body Dressing: Independent Lower Body Dressing: Independent Grooming: Independent Toileting: Independent Eating: Independent Home Management Skills: Needs assist PATIENT/FAMILY GOALS OBJECTIVE / INTERVENTIONS PRESENTATION Oxygen Oxygen Therapy: Supplemental oxygen O2 Delivery Method: Nasal cannula O2 Flow Rate (L/min): 6 L/min Lines and Tubes telemetry Female External Urinary Catheter 08/15/24 1300 (Active) Peripheral IV 08/15/24 Anterior;Left Forearm (Active) Pre-Session Supine, Head of bed elevated, Lines intact RN cleared pt for therapy. Post-Session Supine, Head of bed elevated, Lines intact, RN notified, Call light in reach Pt positioned for comfort, all needs in reach. Bracing (if applicable) PAIN Pt was without complaints of pain throughout the PT treatment. DELIRIUM SCREENING Monge Agitation Sedation Scale (RASS): Alert and calm Confusion Assessment Method-ICU (CAM-ICU/PCAM-ICU) Feature 3: Altered Level of Consciousness: Negative COGNITION Overall Cognitive Status Within Functional Limits Arousal/Alertness Appropriate responses to stimuli Mood/Behavior Alert Orientation Command Following Single Step Commands: Consistently Multi-Step Commands: Consistently Method of Communication Verbal ([place], hearing aids not present) Additional Observations MOTOR EXAMINATION RANGE OF MOTION Right Upper Within Functional Limits Left Upper Within Functional Limits Right Lower Within Functional Limits Left Lower Within Functional Limits MANUAL MUSCLE TESTING Right Upper Within functional limits Left Upper Within functional limits Right Lower Within functional limits Left Lower Within functional limits MUSCLE TONE Right Upper WFL Left Upper WFL Right Lower WFL Left Lower WFL SENSORY EXAMINATION Light Touch Sensation Right Upper Intact Left Upper Intact Right Lower Intact Left Lower Intact THERAPEUTIC ACTIVITY Treatment Minutes 23 BED MOBILITY Level of Cass Physical/Non- physical Assist Adaptive Equipment Utilized Scooting/ Bridging Stand-by assist (to scoot towards EOB) Verbal Cues Bed rails Supine to Sit Stand-by assist Verbal Cues Bed rails Sit to Supine Stand-by assist Verbal Cues Bed rails Interventions PT cued for BLE sequencing toward edge of bed along with self monitoring of symptoms with positional changes. TRANSFERS Level of Cass Physical/Non- physical Assist Adaptive Equipment Utilized Sit to Stand Contact guard Set-up required, Verbal Cues, Nonverbal cues (demo/gestures), 1 person +1 person to manage equipment Walker, rolling Stand to sit Contact guard Set-up required, Verbal Cues, Nonverbal cues (demo/gestures), 1 person +1 person to manage equipment Walker, rolling Interventions PT cued for proper hand placement and forward trunk lean in order to increase efficiency with STS. BALANCE Postural Appearance Posture: Stooped posture, Forward head, Weight shift posterior to midline Level of Cass Balance Support Interventions Static Sit Standby assist Feet supported, Right upper extremity support, Left upper extremity support Dynamic Sit Standby assisst Feet supported Static Stand Contact guard Right upper extremity support, Left upper extremity support (via RW) Dynamic Stand Contact guard Right upper extremity support, Left upper extremity support (RW) AMBULATION Level of Cass Distance Adaptive Equipment Utilized Ambulation Contact guard assist 50ft Rolling walker Comments Patient ambulates with functional dawn and forward flexed posture. PT cued for upright posture and educated on paced activity and therapeutic rest breaks with increased fatigue. Patient reported 9/10 modified RPE following ambulation. Vitals stable throughout. PT presence was necessary for: * monitoring patient vital sign stability STANDARDIZED ASSESSMENTS [facility] 6-Clicks Mobility Assessment Difficulty patient has turning over in bed (including adjusting bedclothes, sheets, and blankets)?:None Difficulty patient has sitting down on and standing up from a chair with arms (wheelchair, bedside commode, etc.)?: A little Difficulty patient has moving from lying on back to sitting on the side of the bed?: None How much help does the patient need moving to and from a bed to a chair (including a wheelchair)?: A little How much help does the patient need to walk in hospital room?: A little How much help does the patient need climbing 3-5 steps with a railing?: A little [facility] 6-Clicks Mobility Assessment Total : 20 ASSESSMENT PT FINDINGS Impairments (if identified) Decreased endurance, ventilation, and/or gas exchange, Impaired gait dynamics/performance, Impaired balance, Impaired functional mobility/transfers Activity Limitations (if identified) Inability to ambulate community distances Participation Restrictions (if identified) Community leisure, Home management Barriers to Discharge (if identified) PT Diagnosis Impaired Functional Mobility Additional Observations Activity Tolerance: Tolerates 30 min activity with multiple rests, Sitting Evaluation/Treatment Tolerance: Patient limited by fatigue Rehab Potential: Good, to achieve stated therapy goals EVAL COMPLEXITY History Profile 3 or more personal factors and/or comorbidities Clinical Presentation Unstable and unpredictable characteristics Clinical Decision Making High complexity PT RECOMMENDATIONS Discharge Destination Home with 24 hour assistance, Home health PT, Home health OT Discharge Equipment Patient owns appropriate equipment Additional Recommendations (if applicable) PLAN Planned PT Interventions Balance training, Bed mobility training, Gait training, Functional Mobility, Strengthening, Neuromuscular re-education, Transfer training, Postural re-education PT Frequency 2 - 5 times per week PT Duration 2 weeks PT GOALS PT GOAL DETAILS Time Frame PT Goal 1: Patient will complete supine <> sit with Britton 2 weeks PT Goal 2: Patient will complete STS and BTC transfers with Britton and LRAD 2 weeks PT Goal 3: Patient will ambulate 250 feet with SBA and LRAD with modified RPE remaining below 3/10 2 weeks PT Goal 4: Patient will be independent with understanding of PT discharge recommendations 2 weeks Written by Deangelo Mak on 08/16/24 at 1:01 PM. * Progress Notes - Nanette Quick - 08/16/2024 9:32 AM EDT OCCUPATIONAL THERAPY EVALUATION PATIENT DATA Patient Name Doron Felipe Session Date 08/16/2024 OT Discharge Recommendations Home with 24 hour assistance, Home health PT, Home health OT Equipment Recommendations Patient owns appropriate equipment HISTORY Doron Felipe is 74 y.o. female admitted 08/14/2024 for work-up of Acute on chronic hypoxic respiratory failure. Hospital Course 1. Pleural effusion 2. Acute on chronic congestive heart failure, unspecified heart failure type ([facility]/HCC) 3. Shortness of breath Procedures Past Medical History Patient has a past medical history of 2019-nCoV acute respiratory disease (05/07/2022), Alcohol use, Allergic (1972), Anemia, Anxiety, Arthritis, Asthma, Cellulitis (02/13/2024), Cellulitis of right leg (02/12/2024), CHF (congestive heart failure) ([facility]), Chronic respiratory failure (2019), Clotting disorder ([facility]), Congenital malformation, COPD (chronic obstructive pulmonary disease) ([facility]/HCC) (2018), Coronary artery disease, CTS (carpal tunnel syndrome), Dental disease, Depression, Diabetes mellitus type I ([facility]), Disease of thyroid gland, Eczema, Fracture of left proximal fibula (04/09/2021), Heart disease, Hepatitis B (1960), HL (hearing loss), Hypertension, Hyperthyroidism (1960), Hypothyroidism (1960), Infectious viral hepatitis, Myocardial infarction ([facility]), Peripheral neuropathy, Pneumonia (06/01), Post-menopausal bleeding (05/08/2021), 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 Past Surgical History Patient has a past surgical history that includes Tonsillectomy (N/A); Cardiac pacemaker placement (N/A); Colonoscopy (N/A); Coronary artery bypass graft (N/A); section, low transverse (N/A); Carpal tunnel release (N/A); Eye surgery (N/A); Adenoidectomy; section, classic (1976, 1979); Fracture surgery; Spine surgery; Cervical biopsy w/ loop electrode excision (2010); Breast biopsy (Right, 2013); Adrenal gland surgery; Thoracentesis; Ankle fracture surgery; and Toe Surgery (Left, 02/07/2024). PRECAUTIONS Medical Precautions Medical Precautions: Fall precautions SUBJECTIVE PARTICIPANTS IN CARE Patient/Caregiver Comments RN cleared pt for therapy. Pt agreeable for OT evaluation this morning. Visitors Present Family/Caregiver Present: No PRESENTATION Oxygen Supplemental oxygen Nasal cannula 6 L/min Lines and Tubes Female External Urinary Catheter 08/15/24 1300 (Active) Peripheral IV 08/15/24 Anterior;Left Forearm (Active) Pre-Session Supine, Head of bed elevated, Lines intact RN cleared pt for therapy. Post-Session Supine, Head of bed elevated, Lines intact, RN notified, Call light in reach Pt positioned for comfort, all needs in reach. HOME LIVING/SET-UP Lives With Spouse Home Type House Home Equipment Cane, Rolling walker, Wheelchair-manual (Home O2) Home Layout One level, Stairs to enter with rails Number of Stairs: 3 Bathroom Layout Walk-in shower, Shower chair, Grab bars, Handheld shower head (in process of renovating shower) Bathroom: Toilet: Tall (in process of replacing standard with tall toilet) Additional Comments Caregiver 5days/week, 2-5hrs/day PRIOR LEVEL OF FUNCTION Receives help from Spouse, Caregiver Level of Mobility Ambulatory- household only (use of w/c in community) Mobility Cass Independent gait with device History of Falls No ADL Performance ADL Performance: Needs assistance Bathing: Needs assist Upper Body Dressing: Independent Lower Body Dressing: Independent Grooming: Independent Toileting: Independent Eating: Independent Home Management Skills: Needs assist PATIENT/FAMILY GOALS To feel better. OBJECTIVE PAIN Patient endorses back pain, does not quantify. Pt positioned for comfort at end of session. DELIRIUM SCREENING Monge Agitation Sedation Scale (RASS): Alert and calm Confusion Assessment Method-ICU (CAM-ICU/PCAM-ICU) Feature 3: Altered Level of Consciousness: Negative COGNITION Overall Cognitive Status Within Functional Limits Arousal/Alertness Appropriate responses to stimuli Mood/Behavior Alert Orientation Oriented X4 Command Following Single Step Commands: Consistently Multi-Step Commands: Consistently Method of Communication Verbal ([place], hearing aids not present) VISION Baseline Vision Glasses distance Current Vision (if different) Visual Screen Results: Pt denies acute vision changes. RIGHT UPPER EXTREMITY EXAMINATION Range of Motion Within Functional Limits Manual Muscle Testing Within functional limits Light Touch Sensation Intact LEFT UPPER EXTREMITY EXAMINATION Range of Motion Within Functional Limits Manual Muscle Testing Within functional limits Light Touch Sensation Intact RIGHT LOWER EXTREMITY EXAMINATION Range of Motion Within Functional Limits Manual Muscle Testing Within functional limits Light Touch Sensation Intact LEFT LOWER EXTREMITY EXAMINATION Range of Motion Within Functional Limits Manual Muscle Testing Manual Muscle Testing: Within functional limits Light Touch Sensation Intact BED MOBILITY Level of Cass Physical/Non-physical Assist Adaptive Equipment Utilized Scooting/ Bridging Stand-by assist (to scoot towards EOB) Verbal Cues Bed rails Supine to Sit Stand-by assist Verbal Cues Bed rails Sit to Supine Stand-by assist Verbal Cues Bed rails TRANSFERS Level of Cass Physical/Non-physical Assist Adaptive Equipment Utilized Sit to Stand Contact guard Set-up required, Verbal Cues, Nonverbal cues (demo/gestures), 1 person +1 person to manage equipment Walker, rolling Stand to sit Contact guard Set-up required, Verbal Cues, Nonverbal cues (demo/gestures), 1 person +1 person to manage equipment Walker, rolling FUNCTIONAL MOBILITY Ambulation Contact guard assist 50ft Rolling walker Comments BALANCE Postural Appearance Posture: Stooped posture, Forward head, Weight shift posterior to midline Level of Cass Balance Support Static Sit Standby assist Feet supported, Right upper extremity support, Left upper extremity support Dynamic Sit Standby assisst Feet supported Static Stand Contact guard Right upper extremity support, Left upper extremity support (via RW) Dynamic Stand Contact guard Right upper extremity support, Left upper extremity support (via RW) STANDARDIZED ASSESSMENTS [facility] 6-Click Daily Activities Help from Other: Don/Doff Regular Lower Body Clothings: Little Help From Other: Bathing: Little Help From Other: Toileting: Little Help From Other: Don/Doff Upper Body Clothings: Little Help From Other: Grooming: Little Help From Other: Eating Meals: None [facility] 6 Click - Daily Activities Score: 19 OT INTERVENTIONS SELF-CARE Treatment Minutes (if applicable) 13 Comments: The patient engaged in skilled intervention for progression towards independence in basicself-cares, focusing on LB dressing, toileting, grooming, and functional ADL transfers. The patient benefited from the following OT interventions: Increased time provided for completion of task and to optimize participation. Skilled management of medical lines/tubes to reduce fall risk with functional ADL transfers. Increased skilled time provided for monitoring of vitals for patient tolerance to activity. Encouragement and therapeutic use of self for maximized volitional effort and task attempts. Environmental set-up to ensure safety and accessibility to all needed areas of treatment space. Level of Cass Interventions Grooming SBA, Setup Edge of bed Pt completed 2-step grooming routine while seated EOB including oral hygiene and facial hygiene. Pt unable to tolerate completion of task while standing due to onset of fatigue. Therefore OT modified task to be completed while seated for maximized participation in task. Lower Body Dressing Sock Level of Assistance: Setup, Close supervision Shoe Level of Assistance: Setup, Close supervision Patient doffed non-slip socks and donned slip on shoes while seated EOB s/p setup. Use of figure four position for lower body reach. Toileting SBA, Setup Anticipated, per clinical judgement. Pt completed ambulation of functional household distance with RW in order to simulate toilet t/f. Household/ Community Re-Entry The patient was challenged to complete functional mobility sequence in order to prepare for out of bed ADLs, and to assess functional endurance, tolerance to upright position, and command following. The patient completed sit>stand and functional ambulation of partial household distance (50ft) with CGA assist and MIN cues for device management, pacing, and safety awareness. With above supports, patient able to safely complete ambulation sequence, however patient demonstrating decreased tolerance to prolonged standing activity this date, indicating decreased endurance anticipated with out of bed ADLs including grooming, toileting, dressing, and bathing. THERAPEUTIC EXERCISE INTERVENTIONS (10 minutes) Treatment Details Pt educated regarding implementation of HEP in order to target muscle groups necessary for ADL and functional mobility independence. HEP printed, and each exercise reviewed. Pt verbalized understanding. [employer] Access Details (if appropriate) Access Code: [email or web address] URL: [email or web address] Date: 08/16/24 Exercises Included - Seated Shoulder Flexion - 1 x daily - 7 x weekly - 3 sets - 10 reps - Seated Shoulder Abduction - Thumbs Up - 1 x daily - 7 x weekly - 3 sets - 10 reps - Seated Scapular Retraction - 1 x daily - 7 x weekly - 3 sets - 10 reps - Seated Punches - 1 x daily - 7 x weekly - 3 sets - 10 reps - Seated Elbow Flexion and Extension AROM - 1 x daily - 7 x weekly - 3 sets - 10 reps ASSESSMENT OT FINDINGS The patient is a 74yo F, seen today for OT evaluation. The patient was admitted due to respiratory failure in setting of SLE. The patient tolerated OT evaluation fairly, with full participation limited by endurance, balance, standing tolerance, and strength. The patient is currently performing below functional baseline, with independence mainly limited by deficits as listed below: Impaired ADL performance, Impaired IADL performance, Decreased endurance/ventilation/gas exchange, Impaired functional mobility, Impaired balance Compared to functional baseline, patient now requires increased assist for all BADLs, IADLs, and functional mobility. Due to deficits, continued skilled OT warranted for maximized independence and participation in valued occupations, and to optimize safety with return to routines. Evaluation/ Treatment Tolerance (if identified) Patient limited by fatigue Rehab Potential (if identified) Good, to achieve stated therapy goals EVAL COMPLEXITY Occupational Profile Expanded review of medical/therapy records and additional review of physical, cognitive, or psychosocial history Performance Deficits Performance Deficits: Activities of daily living (ADLs), Instrumental activities of daily living (IADLs), Habits, Routines, Roles Clinical Decision Making Moderate Overall Eval Complexity Moderate OT RECOMMENDATIONS Discharge Destination Home with 24 hour assistance, Home health PT, Home health OT Discharge Equipment Patient owns appropriate equipment PLAN Planned OT Interventions ADL retraining, IADL retraining, Balance training, Strengthening, Transfer training, Functional mobility OT Frequency 2 - 5 times per week OT Duration 2 weeks GOALS OT GOAL DETAILS Time Frame OT Goal 1: Patient will complete functional ambulation to toilet and all toileting tasks with modified independence and LRAD. 2 weeks OT Goal 2: Patient will complete full body dressing with modified independence. 2 weeks OT Goal 3: Demi will complete 3-step grooming routine while standing sinkside with modified independence. 2 weeks Written by Nanette Quick on 08/16/24 at 12:24 PM. * Care Plan - Daiana Marion RN - 08/16/2024 6:53 AM EDT Problem: Adult Inpatient Plan of Care Goal: Plan of Care Review Outcome: Ongoing, Progressing Flowsheets (Taken 08/16/2024 0652) Progress: no change Plan of Care Reviewed With: patient Goal: Patient-Specific Goal (Individualized) Outcome: Ongoing, Progressing Flowsheets (Taken 08/16/2024 0610) Patient/Family-Specific Goals (Include Timeframe): Patient will have greater than 92% O2 saturationthroughout shift. Individualized Care Needs: O2 management Anxieties, Fears or Concerns: Possible thoracentesis Goal: Absence of Hospital-Acquired Illness or Injury Outcome: Ongoing, Progressing Goal: Optimal Comfort and Wellbeing Outcome: Ongoing, Progressing Goal: Readiness for Transition of Care Outcome: Ongoing, Progressing * Progress Notes - Nathan Lima - 08/15/2024 3:17 PM EDT Case Management Adult Initial Progress Note Doron Felipe 74 y.o. female CSN: [id number] Admission: 08/14/2024 3:16 PM Primary Problem: Acute on chronic hypoxic respiratory failure Customer Engineering Specialist reviewed chart and spoke with patient via phone to complete this Initial Case Management Assessment. PCP: Alisa Kunz DO Emergency Contact: Extended Emergency Contact Information Primary Emergency Contact: Ruthie Jamil Mobile Relation: Daughter Preferred language: Hungarian Aeronautical Engineering Officer needed? No Secondary Emergency Contact: Doron Felipe Address: [address] [place] [place] [address] [place] [address] [facility] Mobile Relation: Spouse Insurance: Primary Visit Coverage Payer Plan Sponsor Code Group Number Group Name [facility] MEDICARE UHC MEDICARE REPLACEMENT [id number] Primary Visit Coverage Subscriber Subscriber ID Subscriber Name Subscriber SSN Subscriber Address [id number] DORON FELIPE FESTUS [id number] [place] [id number] Patient information: Primary Caregiver: Family Support System: Immediate family, Extended family Daily Living Activities: Functional Status: Maximum assistance Living Arrangements: Family Type of Residence: Private residence, Single Level [address] [facility] [address] Smoker in the Home?: No Current DME: Equipment Currently Used at Home: wheelchair, manual, walker, rolling, oxygen, cane, straight, commode chair, shower chair Current DME Provider: Pt reported having HH previous with [facility]. Pt utilize [facility] for [phone] Income Information: Income Source: Retired Income/Expense Information: Income meets expenses Current Resources Utilized: None Housing Circumstances-Z Codes: Housing Circumstances (select all that apply): Low Income (101-300% Federal Poverty Guidlines) - Z596 Patient Referred to: Financial Resources: Other (Comment) (Pt reported no Financial or Community Resources needs at thistime) Anticipated Discharge Date: TBD Patient's Discharge Goal: To discharge back home with family Assistance Available at Discharge: Family (Spouse and daughter) Discharge Transport: Spouse/Family Follow Up Transport: Family Home Health / Home Infusion / Outpatient Dialysis Services: Current DME Provider: Pt reported having HH previous with [facility]. Pt utilize [facility] for [phone] Living Will/Advance Directive/Power of Professional Bondsman /Guardian: Unable to assess: No Have you reviewed your Advance Directive and is it valid for this stay?: Yes Advance Directive: Patient has advance directive, copy in chart Type of Healthcare Directive: Durable power of claims attorney for health care Information Provided on Healthcare Directives: No Pre-existing DNR/DNI Order: No Patient Requests Assistance: No Additional Comments: SW introduced himself and CM role. Pt confirmed demographics, PCP, EC and insurance on face sheet are accurate. Pt lives at [address] [place] [address] with her Doron Felipe. Pt reported herhome is single level and has 3 steps to enter the home. 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 Pt reported that they are moderate to max assistance with their ADLs, ambulation and drives. Pt denies infusions, and HD. Pt reported having a Rolling Walker, Manual Wheelchair, Bedside Commode, Shower Chair, Straight Cane, and reported having 02 at home that is provided by [employer]. [employer] number is [phone]/Address: [address], [place]. Pt reported that she pays for Private Caregiver. Pt reported private caregiver name is Mrs. Quick.Pt reported that she utilize [facility] for services and reported to SW that she would like to utilize them again if needed. Preferred pharmacy- [facility] [place] [address] [facility] [address] Pt's spouse /family to provide transportation upon discharge. Pt reported no issues with Housing, Food, Utilities, Transportation or Safety issues at this time. Pt reported their highest level of education is College. SW will continue to follow and assist as needed. Nathan Lima MSW, DIRECTOR OF RESIDENCE LIFE * Progress Notes - Tk Hale - 08/15/2024 12:19 PM EDT Images from the original note were not included. Hospital Medicine Progress Note Subjective Length of stay: 1 day Brief Patient Summary: Doron Felipe is a 74-year-old woman with a PMH significant for SLE on Plaquenil [facility], chronic bl pleural effusions, chronic hypoxic respiratory failure requiring 2-4 L/min at baseline, DM, hypothyroidism, HFpEF, and pacemaker who presented to the ED for progressively worsening shortness for breath. Subjective Patient evaluated at bedside in the ED. Reports worsened shortness of air past few weeks, with imaging showing slightly worsened bilateral pleural effusions. Patient is comfortable on non rebreather mask. Given 60 mg IV lasix and will re assess in the afternoon. No other acute concerns. Review of Systems Review of Systems Respiratory: Positive for shortness of breath. All other systems reviewed and are negative. Objective Objective Last Recorded Vitals Blood pressure (!) 162/81, pulse 60, temperature 36.4 ??C (97.6 ??F), temperature source Oral, resp. rate 18, weight 67.8 kg (149 lb 7.6 oz), SpO2 92%. Physical Exam Cardiovascular: Rate and Rhythm: Normal rate. Pulses: Normal pulses. Pulmonary: Effort: Pulmonary effort is normal. Comments: Decreased breath sounds right lower lung Abdominal: Tenderness: There is no abdominal tenderness. Musculoskeletal: Right lower leg: No edema. Left lower leg: No edema. Skin: General: Skin is warm. Neurological: Mental Status: She is alert and oriented to person, place, and time. Psychiatric: Mood and Affect: Mood normal. Thought Content: Thought content normal. Relevant Results Labs in last 18 hours CBC WBC 6.49 Hb 10.2 (L) Plt 419 (H) Hct 31.2 (L) ANC ?? INR 2.2 (H), PTT ??, Anti-Xa ?? BMP Na 136 Cl 94 (L) BUN 19 Glu 75 K 3.1 (L) Co2 30 (H) Cr 0.96 Ca 9.3 iCa 4.6 Mg 1.9, Phos 3.2 Lactate 0.7 LFT AST ?? AlkPhos ?? T Prot ?? ALK ?? Bili ?? Alb ?? D.Bili ?? IMAGING (past 24h): CXR: FINDINGS: Left chest wall pacemaker leads project in similar position. Stable cardiac silhouette and mediastinal contours post median sternotomy. Increased bilateral pleural effusions, small on the left and medium sized on the right. Bibasilar opacities are likely atelectasis. No pneumothorax. No acute osseous findings. IMPRESSION: Increased bilateral pleural effusions, greater on the right. Associated bibasilar atelectasis. Assessment/Plan Assessment & Plan Principal Problem: Acute on chronic hypoxic respiratory failure Active Problems: Acquired hypothyroidism SLE (systemic lupus erythematosus) (CMS/HCC) Pleural effusion Presence of cardiac pacemaker Type 2 diabetes mellitus without complication, with long-term current use of insulin Heart failure with preserved ejection fraction (CMS/HCC) Atrial fibrillation (CMS/HCC) Doron Felipe is a 74-year-old woman with recurrent pleural effusions, most likely associated with her Lupus. She requires therapeutic thoracentesis periodically, and has had about 4 in the past. Sheis on a diuretic regimen supervised by Cardiology in the setting of her ischemic heart disease and HFpEF. She has chronic hypoxic respiratory failure requiring oxygen per nasal cannula at 2-4 L/min and has had worsening O2 requirement recently. Today: - Lasix 60 mg IV - I/Os - Oxygen as needed/tolerated - Consult Rheum/pulm Friday - Pharmacy to dose warfarin (holding for now) Acute: #Acute on chronic hypoxic respiratory failure secondary to pleural effusions iso SLE Pleural effusion: chronic since 2020 Has required multiple hospitalizations: -She is status post left pleuroscopy, pleural biopsy, PleurX placement and chemical pleurodesis 11/19/2022. Plan: - IV Lasix as above -continue Plaquenil which is part of her SLE chronic management. #Electrolyte disturbance #Hypokalemia, Hypomagnesemia - Replete as needed. Given 60 mg PO KCl and 2 g IV Mag. - Monitor Chronic: #Heart failure with preserved ejection fraction: Follows with Cardiology as an outpatient. May be contributing to the worsening effusions and volumestatus. -had echocardiogram 1 month ago. Demonstrated diastolic dysfunction with preserved LVEF. Plan: -continue with diuretic therapy with furosemide and spironolactone -Continue to hold metoprolol for now. -low-sodium diet -measure daily weights #Systemic lupus erythematosus: -on Plaquenil and followed by Rheum -no clinical signs of acute lupus flare -rheum consult friday #Atrial fibrillation: -she is on warfarin chronically and has a pacemaker device. -Hold warfarin and monitor INR prior to possible thoracentesis Friday. - Pharmacy contacted to dose Hypothyroidism: -continue outpatient levothyroxine Diabetes mellitus type 2: -continue long-acting insulin with glargine and sliding scale insulin while inpatient. -continue glucose monitoring Fluids: PO DVT Ppx: Heparin Diet: Regular diet 2g Na Code status: Full Code Discharge Planning: Anticipated discharge to: Home Anticipated discharge needs: None Family Contact: Ruthie Jamil Follow-up: PCP Cardiology Pulmonology Future Appointments Date Time Provider Department Center 08/19/2024 1:30 PM Lavern Shoemaker [facility] 09/08/2024 11:20 AM Alisa Kunz DO [facility] 10/07/2024 4:00 PM [facility] 10/27/2024 1:40 PM Anne-Marie Kolb, PRECISION LATHE OPERATOR [facility] 11/29/2024 10:20 AM Alisa Kunz DO [facility] 02/02/2025 10:30 AM Sadiq Osborne MBBS [facility] Associated attestation - Doron Thayer MD - 08/15/2024 6:38 PM EDT I saw and evaluated the patient with the medical/INFORMATICS NURSE SPECIALIST/PA student. I discussed the case with the medical/INFORMATICS NURSE SPECIALIST/PA student and agree with the findings and plan as documented. I personally performed the Examand Medical Decision Making. Patient on 50% venti during encounter this morning. Imaging consistent with pleural effusions as most likely etiology of hypoxia. Ordered IV lasix 60mg and patient received 60 PO Kcl this morning. When discussing with nurse later in the afternoon, patient successfully weaned to 4L nc after ample diuresis. Will repeat labs in am and continue to diurese. * Progress Notes - Nathan Lima - 08/15/2024 9:37 AM EDT Case Management Adult Progress Note Doron Felipe 74 y.o. female CSN: [id number] Admission: 08/14/2024 3:16 PM Primary Problem: Acute on chronic hypoxic respiratory failure Anticipated Discharge Date: TBD Pt was admitted to the hospital due to Acute on Chronic Hypoxic respiratory failure. Plan of care reviewed with pt's care team; and per MD, pt is not medically ready for discharge due to pending check chest x-ray daily and consider consultation with Interventional Pulmonary on Friday. Pt currently b eing diuresis with furosemide 40mg IV. SW will follow up with Pt to complete Initial assessment. SW will continue to follow-up with pt's MD and care team on their progress and discharge plan. Nathan Lima MSW, DIRECTOR OF RESIDENCE LIFE * Hospital Course - Tk Hale - 08/15/2024 8:53 AM EDT Doron Felipe is a 74-year-old woman with a PMH significant for SLE on Plaquenil followed by [facility], chronic bl pleural effusions, chronic hypoxic respiratory failure requiring 2-4 L/min at baseline, DM, hypothyroidism, HFpEF, and pacemaker who presented to the ED for progressively worsening shortness for breath. #Acute on chronic hypoxic respiratory failure secondary to pleural effusions iso diastolic HF, pHTN, and SLE - Patient presented with worsening shortness of breath and increased oxygen requirements found to have a large right pleural effusion, small left effusion - Pleural effusions: chronic since 2020 - Has required multiple hospitalizations for pleural effusions with drainage and pleurodesis - Pulmonary IR consulted - Patient was diuresed with output and BMP monitored daily, electrolytes repleted as needed. - Chest tube placed 08/17/24 per Pulm IR - Right heart cath done showing mild pulmonary hypertension - Pleurodesis done with pulm IR 08/19/24 - Chest tube removed 08/23 - PT/OT consulted - Patients symptoms are improved on discharge. - Will continue maintenance diuresis with PO lasix 40 mg and spironolactone 12.5mg daily. - Outpatient follow up with Pulmonary clinic #Acute exacerbation of heart failure with preserved ejection fraction: - Patient with known diastolic heart failure, likely strong contributor to recurrent right sided pleural effusion - Cardiology consulted who felt HF was a contributing cause of recurrent effusion on right side - RHC done demonstrating increased pulmonary pressure - Diuresed while inpatient with chest tube and pleurodesis - Discharged with metoprolol, spironolactone, lasix - Recommend close cardiology follow up #Systemic lupus erythematosus: - Suspected to be contributing to the left sided pleural effusion, managed conservatively - Continued Plaquenil and Mycophenolate, followed by Rheumatology outpatient - no clinical signs of acute lupus flare while admitted #Atrial fibrillation: - Regular rate and rhythm while admitted - Warfarin was held in anticipation for chest tube and pleurodesis - PT/INR monitored daily - Patient restarted on Warfarin 08/20/24 * Progress Notes - Shawna Vences, PharmD - 08/15/2024 6:49 AM EDT Antithrombosis Stewardship Pharmacist to Dose Warfarin Management Doron Felipe is a 74 y.o. female who has been consulted for warfarin dosing and monitoring. Date INR Dose 08/14 2.6 Hold for Thoracentesis 08/15 2.2 Hold for Thoracentesis Current Hematologic Labs INR (no units) Date/Time Value 08/15/2024 0452 2.2 (H) HGB (g/dL) Date/Time Value 08/15/2024 0452 10.2 (L) HCT (%) Date/Time Value 08/15/2024 0452 31.2 (L) Platelet Count (10*3/uL) Date/Time Value 08/15/2024 0452 419 (H) Subjective Warfarin Indication: Atrial fibrillation Target INR: 2-3 Warfarin Prior to Admission: (Last dose on Sunday 08/13) Prior to Admission Daily Warfarin Regimen: 5mg except on Tuesdays 2.5 mg Assessment Warfarin Sensitivity Risk Factors: Elderly, age > 65;Chronic liver, renal, or thyroid disease Today's INR : Therapeutic Plan -D/w Dr. Ibarra on admission, plan to hold warfarin for possible thoracentesis on Wednesday 08/16. Dr. Ibarra ok w/ stopping [facility]. -D/w patient and confirmed with patient her last dose was Sunday 08/13 and confirmed that she takes 5mg daily except on Tuesdays where she takes 2.5 mg. She measure her INR at home on Friday and call [facility] with results to adjust warfarin dose. -It is important to note that patient was on Apixaban before, but developed LV thrombus after whichshe was switched to warfarin. Warfarin Plan: Hold Reason For Holding Warfarin: For procedure Bridging Agent in Conjunction With Warfarin? : No Patient Education : Incomplete * ED Notes - Jacinta Celestin RN - 08/15/2024 5:28 AM EDT Patient given orange juice. Jacinta Celestin RN 08/15/24 0528 * Progress Notes - Shawna Vences PharmD - 08/14/2024 6:19 PM EDT Antithrombosis Stewardship Pharmacist to Dose Warfarin Management Doron Felipe is a 74 y.o. female who has been consulted for warfarin dosing and monitoring. Date INR Dose 08/14 2.6 Hold for Thoracentesis Current Hematologic Labs INR Date Value Ref Range Status 08/14/2024 2.6 (H) 0.9 - 1.1 Final HGB Date Value Ref Range Status 08/14/2024 10.2 (L) 11.2 - 15.7 g/dL Final HCT Date Value Ref Range Status 08/14/2024 31.8 (L) 34.0 - 45.0 % Final Platelet Count Date Value Ref Range Status 08/14/2024 380 (H) 155 - 369 10*3/uL Final Subjective Warfarin Indication: Atrial fibrillation Target INR: 2-3 Warfarin Prior to Admission: Yes Prior to Admission Daily Warfarin Regimen: 5mg except on Tuesdays 2.5 mg Assessment Warfarin Sensitivity Risk Factors: Elderly, age > 65;Chronic liver, renal, or thyroid disease Today's INR : Therapeutic Plan -D/w Dr. Ibarra on admission, plan to hold warfarin for possible thoracentesis on Wednesday 08/16. ok w/ stopping [facility]. -D/w patient and confirmed with patient her last dose was Sunday 08/13 and confirmed that she takes 5mg daily except on Tuesdays where she takes 2.5 mg. She measure her INR at home on Friday and call [facility] with results to adjust warfarin dose. -It is important to note that patient was on Apixaban before, but developed LV thrombus- which leadto switching to warfarin. Warfarin Plan: Hold Reason For Holding Warfarin: For procedure Bridging Agent in Conjunction With Warfarin? : No Patient Education : Incomplete Will continue to follow patient's clinical progress daily. Shawna Vences PharmD * H&P - Arben Ibarra MD - 08/14/2024 5:27 PM EDTAssociated Order(s): Consult to [facility] Consult to [facility] Consult performed by: Arben Ibarra MD Consult ordered by: Jackson Puente MD Reason for consult: Acute on chronic hypoxia, recurrent pleural effusion Chief complaint Shortness of breath worse than baseline History Of Present Illness Doron Felipe is a 74-year-old woman with a past medical history significant for systemic lupuserythematosus on Plaquenil followed by Rheumatology, chronic/recurrent pleural effusion secondary to lupus, chronic hypoxic respiratory failure requiring 2-4 L/min at baseline, diabetes mellitus, h ypothyroidism, chronic heart failure with preserved ejection fraction, and pacemaker who is followed by Pulmonary and presented to the emergency department for worsening shortness for breath. She hadcontacted the Pulmonary office several times within the last week about worsening symptoms of suffocation, hypoxia and shortness for breath. She increased her home O2 flow rate 4 L/min and reports that symptoms such as cough and hoarse voice are consistent with fluid reaccumulation. She has had a series of evaluations for her effusion and pulmonary believes that her effusion is associated with her lupus. She has had a series of thoracentesis and previously had pleurodesis and PleurX catheter margaret cement. She is on an outpatient diuretic regimen of furosemide 40 mg daily and spironolactone 12.5 mg daily. Other confounding factors for her effusion include heart failure with preserved ejection fraction, hypothyroidism and decreased mobility. She denies high fever, soaking sweats or shaking chills. She has a cough that is nonproductive. She describes some mild chest pressure without chest pain. She complains that she has bilateral shoulder pain which is chronic. She was evaluated by the ED staff and did not have an indication for emergency thoracentesis. She denies other associated problems such as nausea, vomiting, diarrhea, headache, lightheadedness, dizziness or worsening joint pain. Past medical history: Pleural effusion-chronic, recurrent Systemic lupus erythematosus-on Plaquenil, followed by Rheumatology Chronic hypoxic respiratory failure requiring supplemental oxygen 2-4 L/min at baseline Heart failure with preserved ejection fraction Coronary artery disease status post CABG Atrial fibrillation-chronic Pacemaker Diabetes mellitus type 2-on insulin Hypothyroidism Seasonal allergies Anxiety/depression Past surgical history: Pacemaker placement Carpal tunnel release CABG Tonsillectomy/adenoidectomy Thoracentesis/pleurodesis Social History[1] Never smoked. . Occasional alcohol use. No significant illegal drug use Family History[2] -family history reviewed. No changes to charted family history Allergies Morphine, Morphine and codeine, Pravastatin, Azathioprine, Cephalexin, Codeine, Penicillins, Rosuvastatin, Seasonal ic [cholestatin], Statins, Tetracycline, and Tetracyclines & related Medications ordered for hospitalization Current Scheduled Medications[3] [START ON 08/15/2024] aspirin, 81 mg, Oral, Daily busPIRone, 10 mg, Oral, BID cetirizine, 10 mg, Oral, Nightly [START ON 08/15/2024] DULoxetine, 80 mg, Oral, q AM folic acid, 1 mg, Oral, Daily furosemide, 40 mg, Intravenous, q8h gabapentin, 300 mg, Oral, BID heparin (porcine), 5,000 Units, Subcutaneous, q8h MELLY [START ON 08/15/2024] hydroxychloroquine, 200 mg, Oral, Daily insulin glargine-yfgn, 10 Units, Subcutaneous, Nightly insulin lispro, 0-5 Units, Subcutaneous, TID with meals insulin lispro, 0-3 Units, Subcutaneous, Twice at night latanoprost, 1 drop, Both Eyes, Nightly [START ON 08/15/2024] levothyroxine, 125 mcg, Oral, q AM magnesium sulfate, 2 g, Intravenous, Once [START ON 08/15/2024] metoprolol succinate XL, 25 mg, Oral, Daily sodium chloride, 10 mL, Intravenous, q12h [START ON 08/15/2024] spironolactone, 25 mg, Oral, Daily Objective Review of Systems A 10 point review of systems was collected and was negative except as mentioned in the HPI. Physical Exam Last Recorded Vitals Blood pressure 139/63, pulse 60, temperature 36.8 ??C (98.2 ??F), temperature source Oral, resp. rate 23, SpO2 95%. General: Alert, no acute distress, chronically ill-appearing, conversant HEENT: No temporal wasting, EOMI, no scleral icterus, wearing glasses Neck: Supple, normal range of motion, hoarse voice, pacemaker in left anterior chest wall Cardiovascular: Normal S1-S2, regular rhythm, normal rate, no rub, no gallop, 2/6 systolic murmur Pulmonary: Decreased breath sounds in bilateral bases, on oxygen per nasal cannula 4 L/min, lung choi are otherwise clear with air movement Gastrointestinal: Abdomen soft, nontender, obese Genitourinary: No Gruber catheter Musculoskeletal: Fair muscle tone, good range of motion, 1+ bilateral lower extremity edema Neuro: Alert, oriented, no focal neurologic deficits, affect is calm, thoughts are fluent Derm: Skin is clean, dry, intact, no wounds or lesions Laboratory data: Labs in last 18 hours CBC WBC 6.61 Hb 10.2 (L) Plt 380 (H) Hct 31.8 (L) ANC 5.05 BMP Na 128 (L) Cl 90 (L) BUN 19 Glu 282 (H) K 3.6 Co2 25 Cr 0.82 Ca 8.9 iCa ?? Mg 1.6 (L), LFT AST 32 AlkPhos 117 T Prot 7.4 ALK 20 Bili 0.5 Alb ?? ProBNP: 6763 Chest x-ray (personally reviewed by me) FINDINGS: Left chest wall pacemaker leads project in similar position. Stable cardiac silhouette and mediastinal contours post median sternotomy. Increased bilateral pleural effusions, small on the left and medium sized on the right. Bibasilar opacities are likely atelectasis. No pneumothorax. No acute osseous findings. IMPRESSION: Increased bilateral pleural effusions, greater on the right. Associated bibasilar atelectasis. Assessment & Plan Acute on chronic hypoxic respiratory failure Pleural effusion Atrial fibrillation (CMS/HCC) Heart failure with preserved ejection fraction (CMS/HCC) SLE (systemic lupus erythematosus) (CMS/HCC) Presence of cardiac pacemaker Type 2 diabetes mellitus without complication, with long-term current use of insulin Acquired hypothyroidism Ms. Felipe is a 74-year-old woman with chronic/recurrent pleural effusions. Previous evaluations byPulmonary determined that it is most likely associated with her systemic lupus erythematosus. She requires therapeutic thoracentesis periodically. She has previously undergone pleurodesis and PleurX catheter placement. She is on a diuretic regimen supervised by Cardiology in the setting of her ischemic heart disease and heart failure with preserved ejection fraction. She has chronic hypoxic respiratory failure requiring oxygen per nasal cannula at 2-4 L/min and has had worsening O2 requirement recently. She does not seem to have signs of infection or acute coronary syndrome. She also has hypot hyroidism, obesity and diabetes mellitus type 2. Acute on chronic hypoxic respiratory failure secondary to pleural effusion Pleural effusion: chronic since 2020 Has required multiple hospitalizations: -She is status post left pleuroscopy, pleural biopsy, PleurX placement and chemical pleurodesis 11/19/2022. - Pulmonary team believes underlying etiology is secondary to SLE. -there is no emergency indication for thoracentesis today. -we will attempt diuresis with furosemide 40 mg IV q.8 hours. -we will check chest x-ray daily and consider consultation with Interventional Pulmonary on Friday. -we will continue her Plaquenil which is part of her SLE chronic management. Heart failure with preserved ejection fraction: Follows with Cardiology as an outpatient -had repeat echocardiogram approximately 1 month ago. Demonstrated diastolic dysfunction with preserved LVEF. -continue with diuretic therapy with furosemide and spironolactone -she is on metoprolol as an outpatient. However, nursing staff report that she had some bradycardiaon telemetry monitoring. We will check EKG in a.m.. If she develops tachycardia we will resume beta-eloisa. -low-sodium diet -measure daily weights Systemic lupus erythematosus: -on Plaquenil and followed -previous Pulmonary evaluations by rheumatology at concluded that her effusion is probably associated with her autoimmune disease -no clinical signs of acute lupus flare Atrial fibrillation: -she is on warfarin chronically and has a pacemaker device. I have consulted pharmacy for assistance with warfarin dosing and administration. -we will hold her warfarin and monitor INR prior to possible thoracentesis Friday. -had hypomagnesemia at presentation, repleted in the ED. We will continue to monitor electrolytes Hypothyroidism: -continue outpatient levothyroxine Diabetes mellitus type 2: -continue long-acting insulin with glargine and sliding scale insulin while inpatient. -continue glucose monitoring Venous thromboembolism prophylaxis Patient on heparin (porcine) warfarin -on hold Diet Dietary Orders (From admission, onward) Start Ordered 08/14/24 171 Adult diet Diet texture: Regular; Sodium restriction: 2,000 mg Na Diet effective now References: IDDSI Diet Texture Guide Question Answer Comment Diet texture Regular Sodium restriction: 2,000 mg Na 08/14/24 1711 Code Status Full Code Arben Ibarra MD [facility] [1] Social History Tobacco Use Smoking status: Never Passive exposure: Past (2nd hand smoke) Smokeless tobacco: Never Vaping Use Vaping status: Never Used Substance Use Topics Alcohol use: Yes Alcohol/week: 4.0 standard drinks of alcohol Types: 3 Cans of beer, 1 Shots of liquor per week Comment: Nightly Drug use: Never [2] Family History Problem Relation Name Age of [...] (Diffuse Nontoxic) Heart disease Other Gracy Marry Otf Neville [3] [START ON 08/15/2024] aspirin, 81 mg, Oral, Daily busPIRone, 10 mg, Oral, BID cetirizine, 10 mg, Oral, Nightly [START ON 08/15/2024] DULoxetine, 80 mg, Oral, q AM folic acid, 1 mg, Oral, Daily furosemide, 40 mg, Intravenous, q8h gabapentin, 300 mg, Oral, BID heparin (porcine), 5,000 Units, Subcutaneous, q8h MELLY [START ON 08/15/2024] hydroxychloroquine, 200 mg, Oral, Daily insulin glargine-yfgn, 10 Units, Subcutaneous, Nightly insulin lispro, 0-5 Units, Subcutaneous, TID with meals insulin lispro, 0-3 Units, Subcutaneous, Twice at night latanoprost, 1 drop, Both Eyes, Nightly [START ON 08/15/2024] levothyroxine, 125 mcg, Oral, q AM magnesium sulfate, 2 g, Intravenous, Once [START ON 08/15/2024] metoprolol succinate XL, 25 mg, Oral, Daily sodium chloride, 10 mL, Intravenous, q12h [START ON 08/15/2024] spironolactone, 25 mg, Oral, Daily * ED Provider Notes - Fritz Correa MD - 08/14/2024 2:23 PM EDT - HPI Chief Complaint Patient presents with Shortness of Breath PIT NOTE Doron Felipe is a 74 y.o. female who presents to the ED with SOA. Pt c/o hoarse voice, headache, trouble eating, swollen ankles, chest heaviness, chills, and abdominal distension which she states is similar to the last 4 times her lungs have filled with fluid. Her last time was in March. Pt reports recently getting put back on diuretics 3 weeks ago after getting admitted for same symptoms.Pt reports hx of DM, CHF, and Lupus. Pt denies CP, fevers. Pt has no other concerns at this time. MAIN ED NOTE//Fritz Correa MD: I assumed full responsibility for this patient after transfer to Main ED from [facility]. I personally performed my own history, ROS, and physical. I agree with the above [facility] documentation with the following additions/exceptions: Doron Felipe is a 74 y.o. female with a hx of HFpEF, SLE, CAD s/p post CABG, LV thrombus on warfarin and chronic pleural effusion, lupus, n 4LNC at baseline who presents to ED for concerns of SOA. Patient reports worsening dysphonia, trouble eating, extremity swelling, and chest pressure whichis consistent with prior episodes of pleural effusions that have required thoracentesis. She was recently restarted on diuretics 3 weeks ago following an admission for her heart failure. She does endorse worsening dyspnea on exertion, but has not had increase in baseline oxygen. Denies fever, chills, chest pain, n/v. 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 Appearance: She is not ill-appearing or toxic-appearing. HENT: Head: Normocephalic and atraumatic. Cardiovascular: Rate and Rhythm: Normal rate and regular rhythm. Comments: V-paced ppm Pulmonary: Effort: No tachypnea or accessory muscle usage. Breath sounds: Examination of the right-middle field reveals decreased breath sounds. Examination of the right-lower field reveals decreased breath sounds. Decreased breath sounds present. No wheezing, rhonchi or rales. Comments: On baseline 4LNC Chest: Chest wall: No tenderness or crepitus. Musculoskeletal: Cervical back: Normal range of motion. Right lower leg: Edema present. Left lower leg: Edema present. Skin: General: Skin is warm. Capillary Refill: Capillary refill takes less than 2 seconds. Neurological: General: No focal deficit present. Mental Status: She is alert and oriented to person, place, and time. No data recorded ED Course & MDM Date/Time: 08/14/2024/3:33 PM Entered by Jordan Panchal acting as scribe for Jarvis Turpin MD. Attending Attestation: The documentation was recorded by Jordan Panchal, acting as scribe in my presence at the time of the encounter and accurately reflects the service I personally performed. - Assessment: 74 y.o. female presents to ED with complaint of SOA. It should be noted that the chronic conditionsincludes afib on warfarin, CKD, HTN, T1DM, complete heart block s/p PPM, CVA, HLD, EWELINA, chronic pleural effusion, which currently is not at goal therapy. This complicates the clinical picture becauseit Comorbidities: may be exacerbating symptoms, increases the amount and complexity of data to be reviewed, complicates the clinical workup, and increases the risk for morbidity Differential Diagnosis: pleural effusion, CHF exacerbation, COPD exacerbation, pneumonia, acs, stemi, dysrhythmia In order to fully explore the differential diagnosis the following treatments and tests were ordered: All Other Orders Ordered Status Ordering Provider 08/14/24 1447 CMP STAT In [facility] VAHE JEFFERS Yamilka 08/14/24 1447 Magnesium STAT In [facility] VAHE JEFFERS Yamilka 08/14/24 1447 Troponin now and 120 min STAT In [facility] VAHE Yamilka 08/14/24 1447 CBC w/diff STAT Final result VAHE JEFFERS Yamilka 08/14/24 1447 BNP STAT In [facility] VAHE JEFFERS Yamilka 08/14/24 1447 XR Chest 1 View One time imaging In process VAHE JEFFERS Yamilka 08/14/24 1427 EKG now - STAT (adult) Once Preliminary result VAHE JEFFERS ED Course as of 08/14/24 1641 Sat Aug 14, 2024 1530 Presents to ED for concerns of SOA. Extensive PMH including recurrent pleural effusions, lupus, CHF with preserved EF on diuretics, afib on eliquis. [KS] 1531 On arrival, HDS, afebrile, NAD. On 4LNC. Diminished breath sounds appreciated on R chest. No accessory muscle use [KS] 1532 EKG now - STAT (adult) Personally reviewed and interpreted by me. Ventricular paced rhythm with appropriate firing of pacemaker. Similar to prior EKGs, low concern for ST or T wave abnormalities/myocardial injury [KS] 1533 Hemoglobin(!): 10.2 Stable chronic anemia [KS] 1543 N-Terminal, PROBNP, Plasma(!): 6,763 Elevated from prior baseline [KS] 1543 Troponin T, High Sensitivity, 0 Hour(!): 29 At baseline, will monitor delta [KS] 1544 Sodium(!): 128 New hyponatremia [KS] 1544 XR Chest 1 View Moderate to large R pleural effusion on my personal interpretation [KS] 1641 Discussed care with hospital medicine after an interactive discussion. They agree to evaluate and admit to their service for continued management [KS] ED Course User Index [KS] Fritz Correa MD Social Determinates of Health Risks (including Economic Stability, Education and level of understanding, Healthcare access and quality and concerning social factors): Lives far away Ultimately, this patient was Was admitted (Admission) There were no encounter diagnoses.. Patient believed to require admission for the listed diagnoses. The Internal Medicine service was consulted for admission and was agreeable to admit toAcute Floor (Med/Surg). ED Prescriptions None - [1] Past Medical History: Diagnosis Date 2018-nCoV acute respiratory disease 05/07/2022 Alcohol use Allergic 1973 Anemia Anxiety Arthritis Asthma Cellulitis 02/13/2024 Cellulitis of right leg 02/12/2024 CHF (congestive heart failure) ([facility]) Chronic respiratory failure 2019 Clotting disorder ([facility]/HCC) Congenital malformation COPD (chronic obstructive pulmonary disease) ([facility]) 2018 Coronary artery disease CTS (carpal tunnel syndrome) Dental disease Depression Diabetes mellitus type I ([facility]) Disease of thyroid gland Eczema Fracture of left proximal fibula 04/09/2021 - Left proximal fibula fracture on 02/2021 after a mechanical fall. - Established with orthopedic surgery, no surgical intervention, WBAT. Heart disease Hepatitis B 1960 HL (hearing loss) Hypertension Hyperthyroidism 1960 Hypothyroidism 1960 Infectious viral hepatitis Myocardial infarction ([facility]/HCC) Peripheral neuropathy Pneumonia 06/01 Post-menopausal bleeding 05/08/2021 - Isolated episode of vaginal spotting in early 2021, no recurrence. Was evaluated with OBGYN in 10/2021, no intervention at this time, if recurrence of bleeding will likely require endometrial biopsy. Posterior circulation stroke ([facility]/HCC) 12/26/2022 Red eye 05/13/2022 - Concerning for bacterial or viral conjunctivitis vs. Scleritis. - Needs [facility] eye exam. - Was ableto get patient in with [facility] ophthalmology right after our clinic appointment [...] CARDIAC PACEMAKER PLACEMENT N/A Pacemaker Placement from [employer] CARPAL TUNNEL RELEASE N/A Neuroplasty Decompression Median Nerve At Carpal Tunnel from [employer] CERVICAL BIOPSY W/ LOOP ELECTRODE EXCISION 2010 SECTION, CLASSIC 1976, 1979 SECTION, LOW TRANSVERSE N/A Section from [employer] COLONOSCOPY N/A Complete Colonoscopy from [employer] CORONARY ARTERY BYPASS GRAFT N/A CABG from [employer] EYE SURGERY N/A Eye Surgery from [employer] FRACTURE SURGERY SPINE SURGERY THORACENTESIS TOE SURGERY Left 02/07/2024 hematoma removal of upper skin on L big toe TONSILLECTOMY N/A Tonsillectomy from [employer] [3] Family History Problem Relation Name Age of Onset Conversions - Other Mother gracy stamper alfredito kelin Goiter (Diffuse Nontoxic) Heart disease Mother gracy stamper alfredito kelin Hypertension Mother gracy stamper alfredito kelin Stroke Mother gracy stamper alfredito kelin COPD Mother gracy stamper alfredito kelin Alpha-1 antitrypsin deficiency Mother gracy stamper alfredito kelin Arthritis Father Doron Henriquezer Hypercholesterolemia Father Doron Henriquezer Obesity Father Doron Henriquezer COPD Father Doron Henriquezer Alcohol abuse Father Doron Arriaza [place] Diabetes Sibling Cancer Other Doron E [place] Conversions - Other Other Goiter (Diffuse Nontoxic) Heart disease Other Gracy Marry Stamper [place] Kelin [4] Tobacco Use Smoking status: Never [...] the comment field Tetracyclines & Related Rash Fritz Correa MD Resident 08/14/24 1642 Cosigned by Jackson Puente MD at 08/15/2024 3:31 PM EDT Associated attestation - Jackson Puente MD - 08/15/2024 3:31 PM EDT I saw and evaluated the patient with the resident/fellow. I discussed the case with the resident/fellow and agree with the findings and plan as documented. * ED Triage Notes - Odilia Riggs RN - 08/14/2024 2:23 PM EDT Patient arrives w/ c/o increasing SOA over past few weeks. States she feels like her lungs are filling back up with fluid. Wears 4L NC baseline. PMH: CHF Lupus documented in this encounter Plan of Treatment Upcoming Encounters Date Type Department Care Team (Late st Contact Info) Description 10/07/2024 12:50 PM EDT Office Visit [facility] Otolaryngology [address] [place] [address] Chris Pepe MD [address] [place] [address] 10/07/2024 4:00 PM EDT Appointment Cardiac Imaging [address] [place] [address] 10/14/2024 11:00 AM EDT [facility] [address] [place] [address] Cristian Zimmer MD [address] [place] [address] 10/18/2024 7:40 AM EDT Office Visit [facility] Internal Medicine [address] [place] [address] Alisa Kunz, DO [address] [facility] [address] [place] [address] 10/25/2024 10:00 AM EDT Office Visit [facility] Nephrology, Bone & Mineral Metabolism [address], [address] [place] [address] Bryon Brandon MD [address] [place] [address] 10/27/2024 1:40 PM EDT Office Visit [facility] Endocrinology [address] [place] [address] Anne-Marie Kolb L, PRECISION LATHE OPERATOR [address] [facility] [address] [place] [address] 02/02/2025 8:40 AM EST Office Visit [facility] Internal Medicine [address] [place] [address] Alisa Kunz, DO [address] [place] [address] Scheduled Referrals Name Type Priority Associated Diagnoses Order Schedule Discharge Ambulatory referral to [facility] Outpatient Referral Routine Pleural effusion 1 Occurrences starting 08/23/2024 until 02/24/2026 documented as of this encounter Procedures Procedure Name Priority Date/Time Associated Diagnosis Comments POCT GLUCOSE METER UNSOLICITED RESULTS Routine 08/24/2024 11:36 AM EDT POCT GLUCOSE METER UNSOLICITED RESULTS Routine 08/24/2024 7:37 AM EDT PROTHROMBIN TIME(PT) / INR Routine 08/24/2024 3:43 AM EDT BASIC METABOLIC PANEL, PLASMA Routine 08/24/2024 3:43 AM EDT POCT GLUCOSE METER UNSOLICITED RESULTS Routine 08/23/2024 7:09 PM EDT POCT GLUCOSE METER UNSOLICITED RESULTS Routine 08/23/2024 3:58 PM EDT XR CHEST 1 VIEW STAT 08/23/2024 2:20 PM EDT POCT GLUCOSE METER UNSOLICITED RESULTS Routine 08/23/2024 11:41 AM EDT OXYGEN THERAPY Routine 08/23/2024 8:00 AM EDT POCT GLUCOSE METER UNSOLICITED RESULTS Routine 08/23/2024 7:37 AM EDT PROTHROMBIN TIME(PT) / INR Routine 08/23/2024 3:19 AM EDT BASIC METABOLIC PANEL, PLASMA Routine 08/23/2024 3:19 AM EDT POCT GLUCOSE METER UNSOLICITED RESULTS Routine 08/23/2024 3:08 AM EDT POCT GLUCOSE METER UNSOLICITED RESULTS Routine 08/22/2024 9:36 PM EDT POCT GLUCOSE METER UNSOLICITED RESULTS Routine 08/22/2024 8:19 PM EDT OXYGEN THERAPY Routine 08/22/2024 8:00 PM EDT BASIC METABOLIC PANEL, PLASMA Routine 08/22/2024 5:53 PM EDT POCT GLUCOSE METER UNSOLICITED RESULTS Routine 08/22/2024 5:46 PM EDT POCT GLUCOSE METER UNSOLICITED RESULTS Routine 08/22/2024 4:25 PM EDT XR CHEST 1 VIEW Routine 08/22/2024 11:31 AM EDT POCT GLUCOSE METER UNSOLICITED RESULTS Routine 08/22/2024 11:18 AM EDT OXYGEN THERAPY Routine 08/22/2024 8:00 AM EDT POCT GLUCOSE METER UNSOLICITED RESULTS Routine 08/22/2024 7:30 AM EDT PROTHROMBIN TIME(PT) / INR Routine 08/22/2024 6:01 AM EDT BASIC METABOLIC PANEL, PLASMA Routine 08/22/2024 4:46 AM EDT POCT GLUCOSE METER UNSOLICITED RESULTS Routine 08/21/2024 9:26 PM EDT OXYGEN THERAPY Routine 08/21/2024 8:00 PM EDT EXTRA TUBE LAVENDER TOP Routine 08/22/19 5:23 PM EDT EXTRA TUBES Routine 08/21/2024 5:23 PM EDT BASIC METABOLIC PANEL, PLASMA Routine 08/21/2024 5:23 PM EDT POCT GLUCOSE METER UNSOLICITED RESULTS Routine 08/21/2024 4:18 PM EDT POCT GLUCOSE METER UNSOLICITED RESULTS Routine 08/21/2024 11:24 AM EDT POCT GLUCOSE METER UNSOLICITED RESULTS Routine 08/21/2024 8:05 AM EDT OXYGEN THERAPY Routine 08/21/2024 8:00 AM EDT XR CHEST 1 VIEW Routine 08/21/2024 7:01 AM EDT PROTHROMBIN TIME(PT) / INR Routine 08/21/2024 4:04 AM EDT BASIC METABOLIC PANEL, PLASMA Routine 08/21/2024 4:04 AM EDT POCT GLUCOSE METER UNSOLICITED RESULTS Routine 08/21/2024 3:47 AM EDT OXYGEN THERAPY Routine 08/20/2024 8:00 PM EDT POCT GLUCOSE METER UNSOLICITED RESULTS Routine 08/20/2024 7:51 PM EDT POCT GLUCOSE METER UNSOLICITED RESULTS Routine 08/20/2024 5:05 PM EDT POCT GLUCOSE METER UNSOLICITED RESULTS Routine 08/20/2024 12:16 PM EDT POCT GLUCOSE METER UNSOLICITED RESULTS Routine 08/20/2024 8:14 AM EDT OXYGEN THERAPY Routine 08/20/2024 8:00 AM EDT XR CHEST 1 VIEW Routine 08/20/2024 6:58 AM EDT POCT GLUCOSE METER UNSOLICITED RESULTS Routine 08/20/2024 3:23 AM EDT PROTHROMBIN TIME(PT) / INR Routine 08/20/2024 1:57 AM EDT MAGNESIUM, PLASMA Routine 08/20/2024 1:5 7 AM EDT BASIC METABOLIC PANEL, PLASMA Routine 08/20/2024 1:57 AM EDT OXYGEN THERAPY Routine 08/19/2024 8:00 PM EDT POCT GLUCOSE METER UNSOLICITED RESULTS Routine 08/19/2024 7:49 PM EDT POCT GLUCOSE METER UNSOLICITED RESULTS Routine 08/19/2024 4:03 PM EDT POCT GLUCOSE METER UNSOLICITED RESULTS Routine 08/19/2024 11:51 AM EDT POCT GLUCOSE METER UNSOLICITED RESULTS Routine 08/19/2024 8:06 AM EDT OXYGEN THERAPY Routine 08/19/2024 8:00 AM EDT XR CHEST 1 VIEW Routine 08/19/2024 7:54 AM EDT PROTHROMBIN TIME(PT) / INR Routine 08/19/2024 5:00 AM EDT MAGNESIUM, PLASMA Routine 08/19/2024 5:0 0 AM EDT BASIC METABOLIC PANEL, PLASMA Routine 08/19/2024 5:00 AM EDT POCT GLUCOSE METER UNSOLICITED RESULTS Routine 08/19/2024 3:40 AM EDT POCT GLUCOSE METER UNSOLICITED RESULTS Routine 08/19/2024 3:05 AM EDT POCT GLUCOSE METER UNSOLICITED RESULTS Routine 08/19/2024 1:59 AM EDT POCT GLUCOSE METER UNSOLICITED RESULTS Routine 08/19/2024 1:03 AM EDT POCT GLUCOSE METER UNSOLICITED RESULTS Routine 08/18/2024 11:00 PM EDT OXYGEN THERAPY Routine 08/18/2024 8:00 PM EDT POCT GLUCOSE METER UNSOLICITED RESULTS Routine 08/18/2024 7:39 PM EDT POCT GLUCOSE METER UNSOLICITED RESULTS Routine 08/18/2024 4:23 PM EDT RIGHT HEART CATHETERIZATION Routine 08/18/2024 4:04 PM EDT Acute on chronic congestive heart failure, unspecified heart failure type (CMS/HCC) Pleural effusion POCT CO-OXIMETRY MIXED VENOUS UNSOLICITED RESULTS Routine 08/18/2024 3:52 PM EDT POCT CO-OXIMETRY, VENOUS UNSOLICITIED RESULTS Routine 08/18/2024 3:50 PM EDT POCT GLUCOSE METER UNSOLICITED RESULTS Routine 08/18/2024 11:26 AM EDT OXYGEN THERAPY Routine 08/18/2024 8:00 AM EDT POCT GLUCOSE METER UNSOLICITED RESULTS Routine 08/18/2024 7:30 AM EDT XR CHEST 1 VIEW Routine 08/18/2024 6:25 AM EDT POCT GLUCOSE METER UNSOLICITED RESULTS Routine 08/18/2024 3:08 AM EDT POCT GLUCOSE METER UNSOLICITED RESULTS Routine 08/18/2024 1:52 AM EDT PROTHROMBIN TIME(PT) / INR Routine 08/18/2024 1:18 AM EDT MAGNESIUM, PLASMA Routine 08/18/2024 1:1 8 AM EDT BASIC METABOLIC PANEL, PLASMA Routine 08/18/2024 1:18 AM EDT POCT GLUCOSE METER UNSOLICITED RESULTS Routine 08/18/2024 12:56 AM EDT POCT GLUCOSE METER UNSOLICITED RESULTS Routine 08/17/2024 8:34 PM EDT OXYGEN THERAPY Routine 08/17/2024 8:00 PM EDT POCT GLUCOSE METER UNSOLICITED RESULTS Routine 08/17/2024 6:23 PM EDT POCT GLUCOSE METER UNSOLICITED RESULTS Routine 08/17/2024 4:28 PM EDT POCT GLUCOSE METER UNSOLICITED RESULTS Routine 08/17/2024 11:43 AM EDT XR CHEST 1 VIEW STAT 08/17/2024 11:26 AM EDT BODY FLUID CELL COUNT W/ MANUAL DIFFERENTIAL Routine 08/17/2024 10:58 AM EDT BODY FLUID, CYTOSPIN, PATHOLOGIST INTERPRETATION Routine 08/17/2024 10:58 AM EDT CHYLOMICRON ELECTROPHORESIS (REFLEX ONLY) Routine 08/17/2024 10:57 AM EDT TRIGLYCERIDES BF WITH RFLX TO CHYLO (SO) Routine 08/17/2024 10:57 AM EDT TOTAL PROTEIN, PLEURAL FLUID Routine 08/17/2024 10:57 AM EDT AMYLASE, PLEURAL FLUID Routine 10:57 AM EDT CHOLESTEROL FLUID (SO) Routine 10:57 AM EDT ADENOSINE DEAMINASE, PLEURAL FLUID (SO) Routine 08/17/2024 10:57 AM EDT AFB CULTURE, NON RESPIRATORY SOURCE AND ACID FAST STAIN Routine 08/17/2024 10:57 AM EDT LACTATE DEHYDROGENASE, PLEURAL FLUID Routine 08/17/2024 10:57 AM EDT BODY FLUID CULTURE AND GRAM STAIN Routine 08/17/2024 10:57 AM EDT GLUCOSE, PLEURAL FLUID Routine 10:57 AM EDT ALBUMIN, PLEURAL FLUID Routine 10:57 AM EDT PH, PLEURAL FLUID Routine 08/17/2024 10: 57 AM EDT NON-GYNECOLOGIC CYTOLOGY Routine 08/17/2024 10:57 AM EDT OXYGEN THERAPY Routine 08/17/2024 8:00 AM EDT POCT GLUCOSE METER UNSOLICITED RESULTS Routine 08/17/2024 7:39 AM EDT PROTHROMBIN TIME(PT) / INR Routine 08/17/2024 4:28 AM EDT CBC W/O DIFFERENTIAL Routine 08/17/2024 4:28 AM EDT MAGNESIUM, PLASMA Routine 08/17/2024 4:2 8 AM EDT LACTATE DEHYDROGENASE, PLASMA Routine 08/17/2024 4:28 AM EDT COMPREHENSIVE METABOLIC PANEL, PLASMA Routine 08/17/2024 4:28 AM EDT POCT GLUCOSE METER UNSOLICITED RESULTS Routine 08/16/2024 8:03 PM EDT OXYGEN THERAPY Routine 08/16/2024 8:00 PM EDT POCT GLUCOSE METER UNSOLICITED RESULTS Routine 08/16/2024 4:12 PM EDT POCT GLUCOSE METER UNSOLICITED RESULTS Routine 08/16/2024 11:03 AM EDT OXYGEN THERAPY Routine 08/16/2024 8:00 AM EDT POCT GLUCOSE METER UNSOLICITED RESULTS Routine 08/16/2024 7:44 AM EDT PROTHROMBIN TIME(PT) / INR Routine 08/16/2024 1:46 AM EDT CBC W/O DIFFERENTIAL Routine 08/16/2024 1:46 AM EDT MAGNESIUM, PLASMA Routine 08/16/2024 1:4 6 AM EDT BASIC METABOLIC PANEL, PLASMA Routine 08/16/2024 1:46 AM EDT POCT GLUCOSE METER UNSOLICITED RESULTS Routine 08/15/2024 9:37 PM EDT OXYGEN THERAPY Routine 08/15/2024 8:00 PM EDT POCT GLUCOSE METER UNSOLICITED RESULTS Routine 08/15/2024 6:03 PM EDT POCT GLUCOSE METER UNSOLICITED RESULTS Routine 08/15/2024 4:20 PM EDT POCT GLUCOSE METER UNSOLICITED RESULTS Routine 08/15/2024 1:00 PM EDT POCT GLUCOSE METER UNSOLICITED RESULTS Routine 08/15/2024 12:14 PM EDT XR CHEST 1 VIEW Timed 08/15/2024 9:22 AM EDT ECG ADULT Routine 08/15/2024 8:51 AM EDT OXYGEN THERAPY Routine 08/15/2024 8:00 AM EDT POCT GLUCOSE METER UNSOLICITED RESULTS Routine 08/15/2024 7:52 AM EDT POCT GLUCOSE METER UNSOLICITED RESULTS Routine 08/15/2024 6:27 AM EDT POCT GLUCOSE METER UNSOLICITED RESULTS Routine 08/15/2024 6:07 AM EDT POCT GLUCOSE METER UNSOLICITED RESULTS Routine 08/15/2024 5:46 AM EDT OXYGEN THERAPY Routine 08/15/2024 5:39 AM EDT OXYGEN THERAPY Routine 08/15/2024 5:39 AM EDT OXYGEN THERAPY Routine 08/15/2024 5:39 AM EDT POCT GLUCOSE METER UNSOLICITED RESULTS Routine 08/15/2024 5:25 AM EDT BLOOD GAS PANEL, ARTERIAL Routine 08/15/2024 5:01 AM EDT N-TERMINAL PROBNP, PLASMA Routine 08/15/2024 4:52 AM EDT VITAMIN D 25 HYDROXY Routine 08/15/2024 4:52 AM EDT PROTHROMBIN TIME(PT) / INR Routine 08/15/2024 4:52 AM EDT CBC W/O DIFFERENTIAL Routine 08/15/2024 4:52 AM EDT PHOSPHORUS, PLASMA Routine 08/15/2024 4: 52 AM EDT MAGNESIUM, PLASMA Routine 08/15/2024 4:5 2 AM EDT BASIC METABOLIC PANEL, PLASMA Routine 08/15/2024 4:52 AM EDT POCT GLUCOSE METER UNSOLICITED RESULTS Routine 08/14/2024 8:54 PM EDT POCT GLUCOSE METER UNSOLICITED RESULTS Routine 08/14/2024 6:43 PM EDT PROTHROMBIN TIME(PT) / INR STAT 08/14/2024 6:08 PM EDT HEMOGLOBIN A1C Routine 08/14/2024 6:08 PM EDT XR CHEST 1 VIEW STAT 08/14/2024 3:52 PM EDT TROPONIN T, HIGH SENSITIVITY, 0 HOUR, PLASMA, REFLEX TO 2 HOUR STAT 08/14/2024 2:55 PM EDT N-TERMINAL PROBNP, PLASMA STAT 08/14/2024 2:55 PM EDT CBC WITH AUTO DIFFERENTIAL STAT 08/14/2024 2:55 PM EDT MAGNESIUM, PLASMA STAT 08/14/2024 2:5 5 PM EDT COMPREHENSIVE METABOLIC PANEL, PLASMA STAT 08/14/2024 2:55 PM EDT ECG ADULT STAT 08/14/2024 2:31 PM EDT documented in this encounter Results * (ABNORMAL) POCT glucose meter (08/24/2024 11:36 AM EDT) POCT Glucose 263(H) 74 - 99 mg/dL 08/24/2024 11:44 AM EDT [facility] Comment:Accuracy of [...] to the main labortory for testing. Comment 08/24/2024 11:44 AM EDT [facility] Application Analyst ID Partha Zhu 08/25/19 11:44 AM EDT [facility] Device ID [id number] 08/24/2024 11:44 AM EDT [facility] Specimen Type POC Capillary 08/24/2024 11:44 AM EDT [facility] Blood Capillary blood specimen / Unknown 08/24/2024 11:36 AM EDT 08/24/2024 11:44 AM EDT Doron Thayer MD LAB POINT OF CARE TE ST DOCKED DEVICE UNSOLICITED RESULTS Final Result [facility] [address] [place] [address] * (ABNORMAL) POCT glucose meter (08/24/2024 7:37 AM EDT) Pathologist [facility] POCT Glucose 440(H) 74 - 99 mg/dL 08/24/2024 7:41 AM EDT [facility] Comment:Accuracy of [...] to the main labortory for testing. Comment 08/24/2024 7:41 AM EDT [facility] Application Analyst ID [email or web address] 08/25/19 7:41 AM EDT [facility]ALTH[facility]ARE [facility] Device ID [id number] 08/24/2024 7:41 AM EDT [facility] Specimen Type POC Capillary 08/24/2024 7:41 AM EDT [facility] Blood Capillary blood specimen / Unknown 08/24/2024 7:37 AM EDT 08/24/2024 7:41 AM EDT us Doron Thayer MD LAB POINT OF CARE TE ST DOCKED DEVICE UNSOLICITED RESULTS Final Result Performing Organization Address City/[facility] Phone Number [facility] [address] [place] [address] * (ABNORMAL) Prothrombin Time/INR (08/24/2024 3:43 AM EDT) [facility] Prothrombin Time 16.6(H) 12.0 - 14.3 sec LAB COAGULATION METHOD 08/24/2024 4:04 AM EDT [facility] INR 1.3(H) 0.9 - 1.1 LAB COAGULATION METHOD 08/24/2024 4:04 AM EDT [facility] Blood Venous blood specimen / Unknown Venipuncture / Unknown 08/24/2024 3:43 AM EDT 08/24/2024 3:48 AM EDT Narrative [facility] - 08/24/2024 4:04 AM EDT OPTIMAL INR RANGES FOR PATIENT ON ORAL ANTICOAGULANT THERAPY Prevention of venous thromboembolism INR 2.0 to 3.0 In patients with heart disease: Atrial fibrillation INR 2.0 to 3.0 Valvular heart disease INR 2.0 to 3.0 Tissue heart valves INR 2.0 to 3.0 Mechanical prosthetic valves INR 2.5 to 3.5 Prevention of recurrent GA INR 2.5 to 3.5 us Kenneth James MD LAB BLOOD ORDERABLES Final Res ult [facility] [address] [place] [address] * (ABNORMAL) Basic metabolic panel (08/24/2024 3:43 AM EDT) Glucose, Plasma 327(H) 74 - 99 mg/dL 08/24/2024 4:22 AM EDT [facility] BUN, Plasma 33(H) 8 - 23 mg/dL 08/24/2024 4:22 AM EDT [facility] Creatinine, Plasma 1.02 0.60 - 1.10 mg/dL 08/24/2024 4:22 AM EDT [facility] BUN/Creatinine Ratio 32 08/24/2024 4:22 AM EDT [facility] Sodium, Plasma 128(L) 136 - 145 mmol/L 08/24/2024 4:22 AM EDT [facility] Potassium, Plasma 4.1 3.6 - 4.9 mmol/L 08/24/2024 4:22 AM EDT [facility] Chloride, Plasma 90(L) 97 - 107 mmol/L 08/24/2024 4:22 AM EDT [facility] CO2, Plasma 27 22 - 29 mmol/L 08/24/2024 4:22 AM EDT [facility] Anion Gap 11 6 - 16 mmol/L 08/24/2024 4:22 AM EDT [facility] Total Calcium, Plasma 8.6(L) 8.9 - 10.2 mg/dL 08/24/2024 4:22 AM EDT [facility] eGFRcr 58.2 mL/min/1.7 3m*2 08/24/2024 4:22 AM EDT [facility] Comment:Reported eGFRcr in m L/min/1.73m2 is based the CKD-EPI 2020 equation that does not use a race coefficient. Blood Venous blood specimen / Unknown Venipuncture / Unknown 08/24/2024 3:43 AM EDT 08/24/2024 3:49 AM EDT us Kenneth James MD LAB BLOOD ORDERABLES Final Res ult [facility] [address] [place] [address] * POCT glucose meter (08/23/2024 7:09 PM EDT) [facility] POCT Glucose 96 74 - 99 mg/dL 08/23/2024 7:11 PM EDT [facility] Comment:Accuracy of [...] to the main labortory for testing. Comment 08/23/2024 7:11 PM EDT [facility] Application Analyst ID Veronica Kellogg 025 7:11 PM EDT [facility] Device ID [id number] 08/23/2024 7:11 PM EDT [facility] Specimen Type POC Capillary 08/23/2024 7:11 PM EDT [facility] Blood Capillary blood specimen / Unknown 08/23/2024 7:09 PM EDT 08/23/2024 7:11 PM EDT Kenneth James MD LAB POINT OF CARE TE ST DOCKED DEVICE UNSOLICITED RESULTS Final Result Performing Organization Address [facility] Co de Phone Number [facility] [address] [place] [address] * (ABNORMAL) POCT glucose meter (08/23/2024 3:58 PM EDT) [facility] POCT Glucose 123(H) 74 - 99 mg/dL 08/23/2024 4:04 PM EDT [facility] Comment:Accuracy of [...] to the main labortory for testing. Comment 08/23/2024 4:04 PM EDT [facility] Application Analyst ID Alma Guillermo 08/24/19 25 4:04 PM EDT [facility] Device ID [id number] 08/23/2024 4:04 PM EDT [facility] Specimen Type POC Capillary 08/23/2024 4:04 PM EDT [facility] Blood Capillary blood specimen / Unknown 08/23/2024 3:58 PM EDT 08/23/2024 4:04 PM EDT Kenneth James MD LAB POINT OF CARE TE ST DOCKED DEVICE UNSOLICITED RESULTS Final Result [facility] [address] [place] [id number] * XR Chest 1 View (08/23/2024 2:20 PM EDT) Anatomical Region Laterality Modality Chest Digital Radiogra phy Impressions 08/23/2024 2:22 PM EDT No significant pneumothorax following chest tube removal. CRITICAL RESULT: No. COMMUNICATION: Per this written report. Drafted by Edgar Welch MD on 08/23/2024 2:21 PM Final report signed by Edgar Welch MD on 08/23/2024 2:22 PM Narrative 08/23/2024 2:22 PM EDT CLINICAL INDICATION: right chest tube removal TECHNIQUE: XR CHEST 1 VIEW COMPARISON: 08/22/2024 FINDINGS: Small bore right-sided chest tube has been removed. No significant pneumothorax is appreciated. Stable bilateral pleural effusions, right greater than left. Stable basilar atelectasis. Procedure Note Edgar Welch MD - 08/23/2024 CLINICAL INDICATION: right chest tube removal TECHNIQUE: XR CHEST 1 VIEW COMPARISON: 08/22/2024 FINDINGS: Small bore right-sided chest tube has been removed. No significantpneumothorax is appreciated. Stable bilateral pleural effusions, rightgreater than left. Stable basilar atelectasis. IMPRESSION: No significant pneumothorax following chest tube removal. CRITICAL RESULT: No. COMMUNICATION: Per this written report. Drafted by Edgar Welch MD on 08/23/2024 2:21 PM Final report signed by Edgar Welch MD on 08/23/2024 2:22 PM us Boby D Rouse PRECISION LATHE OPERATOR IMG XR PROCEDURES Final Res ult * (ABNORMAL) POCT glucose meter (08/23/2024 11:41 AM EDT) [facility] POCT Glucose 223(H) 74 - 99 mg/dL 08/23/2024 11:43 AM EDT [facility] Comment:Accuracy of [...] to the main labortory for testing. Comment 08/23/2024 11:43 AM EDT [facility] Application Analyst ID Marilee Fabian 08/23/2024 11:43 AM EDT [facility] Device ID [id number] 08/23/2024 11:43 AM EDT [facility] Specimen Type POC Capillary 08/23/2024 11:43 AM EDT [facility] Blood Capillary blood specimen / Unknown 08/23/2024 11:41 AM EDT 08/23/2024 11:43 AM EDT Kenneth James MD LAB POINT OF CARE TE ST DOCKED DEVICE UNSOLICITED RESULTS Final Result Performing Organization Address City/State/[facility] Co de Phone Number [facility] [address] [place] [address] * (ABNORMAL) POCT glucose meter (08/23/2024 7:37 AM EDT) [facility] POCT Glucose 156(H) 74 - 99 mg/dL 08/23/2024 7:38 AM EDT [facility] Comment:Accuracy of [...] to the main labortory for testing. Comment 08/23/2024 7:38 AM EDT [facility] Application Analyst ID Marjorie Cortez 08/24/19 7:38 AM EDT [facility] Device ID [id number] 08/23/2024 7:38 AM EDT [facility] Specimen Type POC Capillary 08/23/2024 7:38 AM EDT [facility] Blood Capillary blood specimen / Unknown 08/23/2024 7:37 AM EDT 08/23/2024 7:38 AM EDT Kenneth James MD LAB POINT OF CARE TE ST DOCKED DEVICE UNSOLICITED RESULTS Final Result Performing Organization Address [facility] Co de Phone Number [facility] [address] [place] [address] * (ABNORMAL) Prothrombin Time/INR (08/23/2024 3:19 AM EDT) Prothrombin Time 14.4(H) 12.0 - 14.3 sec LAB COAGULATION METHOD 08/23/2024 3:56 AM EDT [facility] INR 1.1 0.9 - 1.1 LAB COAGULATION METHOD 08/23/2024 3:56 AM EDT [facility] Blood Venous blood specimen / Unknown Venipuncture / Unknown 08/23/2024 3:19 AM EDT 08/23/2024 3:25 AM EDT Narrative [facility] - 08/23/2024 3:56 AM EDT OPTIMAL INR RANGES FOR PATIENT ON ORAL ANTICOAGULANT THERAPY Prevention of venous thromboembolism INR 2.0 to 3.0 In patients with heart disease: Atrial fibrillation INR 2.0 to 3.0 Valvular heart disease INR 2.0 to 3.0 Tissue heart valves INR 2.0 to 3.0 Mechanical prosthetic valves INR 2.5 to 3.5 Prevention of recurrent GA INR 2.5 to 3.5 us Kenneth James MD LAB BLOOD ORDERABLES Final Res ult Performing Organization Address City/[facility]/ZIP Co de Phone Number [facility] [address] [place] [address] * (ABNORMAL) Basic metabolic panel (08/23/2024 3:19 AM EDT) Glucose, Plasma 250(H) 74 - 99 mg/dL 08/23/2024 4:06 AM EDT [facility] BUN, Plasma 28(H) 8 - 23 mg/dL 08/23/2024 4:06 AM EDT [facility] Creatinine, Plasma 1.05 0.60 - 1.10 mg/dL 08/23/2024 4:06 AM EDT [facility] BUN/Creatinine Ratio 27 08/23/2024 4:06 AM EDT [facility] Sodium, Plasma 128(L) 136 - 145 mmol/L 08/23/2024 4:06 AM EDT [facility] Potassium, Plasma 4.2 3.6 - 4.9 mmol/L 08/23/2024 4:06 AM EDT [facility] Chloride, Plasma 90(L) 97 - 107 mmol/L 08/23/2024 4:06 AM EDT [facility] CO2, Plasma 31(H) 22 - 29 mmol/L 08/23/2024 4:06 AM EDT [facility] Anion Gap 7 6 - 16 mmol/L 08/23/2024 4:06 AM EDT [facility] Total Calcium, Plasma 9.0 8.9 - 10.2 mg/dL 08/23/2024 4:06 AM EDT [facility] eGFRcr 56.2 mL/min/1.7 3m*2 08/23/2024 4:06 AM EDT [facility] Comment:Reported eGFRcr in m L/min/1.73m2 is based the CKD-EPI 2020 equation that does not use a race coefficient. Blood Venous blood specimen / Unknown Venipuncture / Unknown 08/23/2024 3:19 AM EDT 08/23/2024 3:25 AM EDT us Kenneth James MD LAB BLOOD ORDERABLES Final Res ult [facility] [address] [place] [address] * (ABNORMAL) POCT glucose meter (08/23/2024 3:08 AM EDT) POCT Glucose 261(H) 74 - 99 mg/dL 08/23/2024 3:09 AM EDT [facility] Comment:Accuracy of a glucos e result obtained from a capillary whole blood specimen relies upon adequate, non-compromised capillary blood flow. If the capillary glucose result is not consistent with the patient's clinical signs and symptoms, glucose testing should be repeated with either an arterial or venous sample on the glucometer or sent to the main labortory for testing. Comment 08/23/2024 3:09 AM EDT [facility] Application Analyst ID Karson Kaufman 08/24/19 3:09 AM EDT [facility]ALTH[facility]ARE LAB Device ID [id number] 08/23/2024 3:09 AM EDT [facility] Specimen Type POC Capillary 08/23/2024 3:09 AM EDT [facility] Blood Capillary blood specimen / Unknown 08/23/2024 3:08 AM EDT 08/23/2024 3:09 AM EDT Kenneth James MD LAB POINT OF CARE TE ST DOCKED DEVICE UNSOLICITED RESULTS Final Result Performing Organization Address City/State/[facility] Co de Phone Number [facility] [address] [place] [address] * (ABNORMAL) POCT glucose meter (08/22/2024 9:36 PM EDT) [facility] POCT Glucose 299(H) 74 - 99 mg/dL 08/22/2024 9:37 PM EDT [facility] Comment:Accuracy of a glucos e result obtained from a capillary whole blood specimen relies upon adequate, non-compromised capillary blood flow. If the capillary glucose result is not consistent with the patient's clinical signs and symptoms, glucose testing should be repeated with either an arterial or venous sample on the glucometer or sent to the main labortory for testing. Comment 08/22/2024 9:37 PM EDT [facility]ALTH[facility]ARE [facility] Application Analyst ID Puja Le 08/22/2024 9:37 PM EDT [facility]ALTH[facility]ARE LAB Device ID [id number] 08/22/2024 9:37 PM EDT [facility] Specimen Type POC Capillary 08/22/2024 9:37 PM EDT [facility] Blood Capillary blood specimen / Unknown 08/22/2024 9:36 PM EDT 08/22/2024 9:37 PM EDT us Kenneth James MD LAB POINT OF CARE TE ST DOCKED DEVICE UNSOLICITED RESULTS Final Result [facility] [address] [place] [address] * (ABNORMAL) POCT glucose meter (08/22/2024 8:19 PM EDT) POCT Glucose 248(H) 74 - 99 mg/dL 08/22/2024 8:20 PM EDT [facility] Comment:Accuracy of a glucos e result obtained from a capillary whole blood specimen relies upon adequate, non-compromised capillary blood flow. If the capillary glucose result is not consistent with the patient's clinical signs and symptoms, glucose testing should be repeated with either an arterial or venous sample on the glucometer or sent to the main labortory for testing. Comment 08/22/2024 8:20 PM EDT [facility]ALTH[facility]ARE [facility] Application Analyst ID Karson Kaufman 08/23/19 8:20 PM EDT [facility]ALTH[facility]ARE LAB Device ID [id number] 08/22/2024 8:20 PM EDT [facility] Specimen Type POC Capillary 08/22/2024 8:20 PM EDT [facility] Blood Capillary blood specimen / Unknown 08/22/2024 8:19 PM EDT 08/22/2024 8:20 PM EDT us Kenneth James MD LAB POINT OF CARE TE ST DOCKED DEVICE UNSOLICITED RESULTS Final Result Performing Organization Address City/[facility]/ZIP Co de Phone Number [facility]ARE [facility] [address] [place] [address] * (ABNORMAL) Basic metabolic panel (08/22/2024 5:53 PM EDT) Glucose, Plasma 102(H) 74 - 99 mg/dL 08/22/2024 6:38 PM EDT [facility] BUN, Plasma 29(H) 8 - 23 mg/dL 08/22/2024 6:38 PM EDT [facility] Creatinine, Plasma 1.11(H) 0.60 - 1.10 mg/dL 08/22/2024 6:38 PM EDT [facility] BUN/Creatinine Ratio 26 08/22/2024 6:38 PM EDT [facility] Sodium, Plasma 138 136 - 145 mmol/L 08/22/2024 6:38 PM EDT [facility] Potassium, Plasma 4.5 3.6 - 4.9 mmol/L 08/22/2024 6:38 PM EDT [facility] Chloride, Plasma 96(L) 97 - 107 mmol/L 08/22/2024 6:38 PM EDT [facility] CO2, Plasma 30(H) 22 - 29 mmol/L 08/22/2024 6:38 PM EDT [facility] Anion Gap 12 6 - 16 mmol/L 08/22/2024 6:38 PM EDT [facility] Total Calcium, Plasma 9.1 8.9 - 10.2 mg/dL 08/22/2024 6:38 PM EDT [facility] eGFRcr 52.6 mL/min/1.7 3m*2 08/22/2024 6:38 PM EDT [facility] Comment:Reported eGFRcr in m L/min/1.73m2 is based the CKD-EPI 2020 equation that does not use a race coefficient. Blood Venous blood specimen / Unknown Venipuncture / Unknown 08/22/2024 5:53 PM EDT 08/22/2024 5:58 PM EDT us Kenneth James MD LAB BLOOD ORDERABLES Final Res ult [facility] [address] [place] [address] * (ABNORMAL) POCT glucose meter (08/22/2024 5:46 PM EDT) POCT Glucose 102(H) 74 - 99 mg/dL 08/22/2024 5:47 PM EDT [facility] Comment:Accuracy of a glucos e result obtained from a capillary whole blood specimen relies upon adequate, non-compromised capillary blood flow. If the capillary glucose result is not consistent with the patient's clinical signs and symptoms, glucose testing should be repeated with either an arterial or venous sample on the glucometer or sent to the main labortory for testing. Comment 08/22/2024 5:47 PM EDT [facility] Application Analyst ID Kosta Dugan 08/23/19 5:47 PM EDT [facility] Device ID [id number] 08/22/2024 5:47 PM EDT [facility] Specimen Type POC Capillary 08/22/2024 5:47 PM EDT [facility]ALTH[facility] Blood Capillary blood specimen / Unknown 08/22/2024 5:46 PM EDT 08/22/2024 5:47 PM EDT Kenneth James MD LAB POINT OF CARE TE ST DOCKED DEVICE UNSOLICITED RESULTS Final Result Performing Organization Address City/[facility]/ZIP Co de Phone Number [facility] [address] [place] [address] * POCT glucose meter (08/22/2024 4:25 PM EDT) [facility] POCT Glucose 78 74 - 99 mg/dL 08/22/2024 4:26 PM EDT [facility] Comment:Accuracy of [...] to the main labortory for testing. Comment 08/22/2024 4:26 PM EDT [facility]ALTHCARE LAB Application Analyst ID La Tracey 08/22/2024 4:26 PM EDT HEALTHCARE LAB Device ID [id number] 08/22/2024 4:26 PM EDT [facility]ALTH[facility]ARE LAB Specimen Type POC Capillary 08/22/2024 4:26 PM EDT [facility] Blood Capillary blood specimen / Unknown 08/22/2024 4:25 PM EDT 08/22/2024 4:26 PM EDT us Kenneth James MD LAB POINT OF CARE TE ST DOCKED DEVICE UNSOLICITED RESULTS Final Result [facility] [address] [place] [address] * XR Chest 1 View (08/22/2024 11:31 AM EDT) Anatomical Region Laterality Modality Chest Digital Radiogra phy Impressions 08/22/2024 6:26 PM EDT Stable exam. CRITICAL RESULT: No. COMMUNICATION: Per this written report. Drafted by Amanda Chatman MD on 08/22/2024 6:25 PM Final report signed by Amanda Chatman MD on 08/22/2024 6:26 PM Narrative 08/22/2024 6:26 PM EDT CLINICAL INDICATION: Pleural effusion monitoring TECHNIQUE: XR CHEST 1 VIEW COMPARISON: 08/21/2024 FINDINGS: Stably positioned support devices. Stable cardiac silhouette and mediastinal contours. Similar small bibasilar atelectasis and bilateral pleural effusions. No significant pneumothorax. Procedure Note Amanda Chatman MD - 08/22/2024 CLINICAL INDICATION: Pleural effusion monitoring TECHNIQUE: XR CHEST 1 VIEW COMPARISON: 08/21/2024 FINDINGS: Stably positioned support devices. Stable cardiac silhouette andmediastinal contours. Similar small bibasilar atelectasis and bilateralpleural effusions. No significant pneumothorax. IMPRESSION: Stable exam. CRITICAL RESULT: No. COMMUNICATION: Per this written report. Drafted by Amanda Chatman MD on 08/22/2024 6:25 PM Final report signed by Amanda Chatman MD on 08/22/2024 6:26 PM Kenneth James MD IMG XR PROCEDURES Final Result * (ABNORMAL) POCT glucose meter (08/22/2024 11:18 AM EDT) POCT Glucose 395(H) 74 - 99 mg/dL 08/22/2024 11:20 AM EDT [facility] Comment:Accuracy of [...] to the main labortory for testing. Comment 08/22/2024 11:20 AM EDT [facility] Application Analyst ID La Tracey 08/22/2024 11:20 AM EDT [facility] Device ID [id number] 08/22/2024 11:20 AM EDT [facility]ALTH[facility]ARE LAB Specimen Type POC Capillary 08/22/2024 11:20 AM EDT [facility] Blood Capillary blood specimen / Unknown 08/22/2024 11:18 AM EDT 08/22/2024 11:20 AM EDT Kenneth James MD LAB POINT OF CARE TE ST DOCKED DEVICE UNSOLICITED RESULTS Final Result Performing Organization Address City/[facility] Co de Phone Number [facility] [address] [place] [address] * (ABNORMAL) POCT glucose meter (08/22/2024 7:30 AM EDT) POCT Glucose 378(H) 74 - 99 mg/dL 08/22/2024 7:32 AM EDT [facility] Comment:Accuracy of [...] to the main labortory for testing. Comment 08/22/2024 7:32 AM EDT [facility]ALTH[facility]ARE [facility] Application Analyst ID La Tracey 08/22/2024 7:32 AM EDT [facility]ALTH[facility]ARE LAB Device ID [id number] 08/22/2024 7:32 AM EDT [facility]ALTH[facility] Specimen Type POC Capillary 08/22/2024 7:32 AM EDT [facility] Blood Capillary blood specimen / Unknown 08/22/2024 7:30 AM EDT 08/22/2024 7:32 AM EDT us Kenneth James MD LAB POINT OF CARE TE ST DOCKED DEVICE UNSOLICITED RESULTS Final Result Performing Organization Address City/[facility]/ZIP Co de Phone Number [facility]ALTHCARE [facility] [address] [place] [address] * (ABNORMAL) Prothrombin Time/INR (08/22/2024 6:01 AM EDT) Prothrombin Time 14.4(H) 12.0 - 14.3 sec LAB COAGULATION METHOD 08/22/2024 6:28 AM EDT [facility] INR 1.1 0.9 - 1.1 LAB COAGULATION METHOD 08/22/2024 6:28 AM EDT [facility] Blood Venous blood specimen / Unknown Venipuncture / Unknown 08/22/2024 6:01 AM EDT 08/22/2024 6:08 AM EDT Narrative [facility] - 08/22/2024 6:28 AM EDT OPTIMAL INR RANGES FOR PATIENT ON ORAL ANTICOAGULANT THERAPY Prevention of venous thromboembolism INR 2.0 to 3.0 In patients with heart disease: Atrial fibrillation INR 2.0 to 3.0 Valvular heart disease INR 2.0 to 3.0 Tissue heart valves INR 2.0 to 3.0 Mechanical prosthetic valves INR 2.5 to 3.5 Prevention of recurrent GA INR 2.5 to 3.5 us Kenneth James MD LAB BLOOD ORDERABLES Final Res ult [facility] [address] [place] [address] * (ABNORMAL) Basic Metabolic Panel, Plasma (08/22/2024 4:46 AM EDT) Glucose, Plasma 276(H) 74 - 99 mg/dL 08/22/2024 5:50 AM EDT [facility] BUN, Plasma 30(H) 8 - 23 mg/dL 08/22/2024 5:50 AM EDT [facility] Creatinine, Plasma 0.94 0.60 - 1.10 mg/dL 08/22/2024 5:50 AM EDT [facility] BUN/Creatinine Ratio 32 08/22/2024 5:50 AM EDT [facility] Sodium, Plasma 127(L) 136 - 145 mmol/L 08/22/2024 5:50 AM EDT [facility] Potassium, Plasma 4.4 3.6 - 4.9 mmol/L 08/22/2024 5:50 AM EDT [facility] Chloride, Plasma 88(L) 97 - 107 mmol/L 08/22/2024 5:50 AM EDT [facility] CO2, Plasma 25 22 - 29 mmol/L 08/22/2024 5:50 AM EDT [facility] Anion Gap 14 6 - 16 mmol/L 08/22/2024 5:50 AM EDT [facility] Total Calcium, Plasma 9.3 8.9 - 10.2 mg/dL 08/22/2024 5:50 AM EDT [facility] eGFRcr 64.2 mL/min/1.7 3m*2 08/22/2024 5:50 AM EDT [facility] Comment:Reported eGFRcr in m L/min/1.73m2 is based the CKD-EPI 2020 equation that does not use a race coefficient. Blood Venous blood specimen / Unknown Venipuncture / Unknown 08/22/2024 4:46 AM EDT 08/22/2024 4:53 AM EDT us Kenneth James MD LAB BLOOD ORDERABLES Final Res ult [facility] [address] [place] [address] * (ABNORMAL) POCT glucose meter (08/21/2024 9:26 PM EDT) POCT Glucose 195(H) 74 - 99 mg/dL 08/21/2024 9:28 PM EDT [facility]ALTH[facility] Comment:Accuracy of a glucos e result obtained from a capillary whole blood specimen relies upon adequate, non-compromised capillary blood flow. If the capillary glucose result is not consistent with the patient's clinical signs and symptoms, glucose testing should be repeated with either an arterial or venous sample on the glucometer or sent to the main labortory for testing. Comment 08/21/2024 9:28 PM EDT [facility]ALTH[facility]ARE LAB Application Analyst ID Hazel Keller 08/22/19 25 9:28 PM EDT HEALTHCARE LAB Device ID [id number] 08/21/2024 9:28 PM EDT [facility]ALTH[facility]ARE LAB Specimen Type POC Capillary 08/21/2024 9:28 PM EDT [facility] Blood Capillary blood specimen / Unknown 08/21/2024 9:26 PM EDT 08/21/2024 9:28 PM EDT us Kenneth James MD LAB POINT OF CARE TE ST DOCKED DEVICE UNSOLICITED RESULTS Final Result Performing Organization Address City/[facility]/ZIP Co de Phone Number [facility] [address] [place] [address] * Lavender Top (08/21/2024 5:23 PM EDT) Extra Hold for add-ons 08/21/2024 9:02 PM EDT [facility] Comment:Auto resulted. Blood Venous blood specimen / Unknown 08/21/2024 5:23 PM EDT 08/21/2024 6:26 PM EDT us Kenneth James MD LAB BLOOD ORDERABLES Final Res ult Performing Organization Address [facility]/ZIP Co de Phone Number [facility] [address] [place] [address] * (ABNORMAL) Basic metabolic panel (08/21/2024 5:23 PM EDT) Glucose, Plasma 136(H) 74 - 99 mg/dL 08/21/2024 6:22 PM EDT [facility] BUN, Plasma 32(H) 8 - 23 mg/dL 08/21/2024 6:22 PM EDT [facility] Creatinine, Plasma 1.09 0.60 - 1.10 mg/dL 08/21/2024 6:22 PM EDT [facility] BUN/Creatinine Ratio 29 08/21/2024 6:22 PM EDT [facility] Sodium, Plasma 131(L) 136 - 145 mmol/L 08/21/2024 6:22 PM EDT [facility] Potassium, Plasma 4.4 3.6 - 4.9 mmol/L 08/21/2024 6:22 PM EDT [facility] Chloride, Plasma 91(L) 97 - 107 mmol/L 08/21/2024 6:22 PM EDT [facility] CO2, Plasma 28 22 - 29 mmol/L 08/21/2024 6:22 PM EDT [facility] Anion Gap 12 6 - 16 mmol/L 08/21/2024 6:22 PM EDT [facility] Total Calcium, Plasma 9.3 8.9 - 10.2 mg/dL 08/21/2024 6:22 PM EDT [facility] eGFRcr 53.8 mL/min/1.7 3m*2 08/21/2024 6:22 PM EDT [facility] Comment:Reported eGFRcr in m L/min/1.73m2 is based the CKD-EPI 2020 equation that does not use a race coefficient. Blood Venous blood specimen / Unknown Venipuncture / Unknown 08/21/2024 5:23 PM EDT 08/21/2024 5:51 PM EDT us Kenneth James MD LAB BLOOD ORDERABLES Final Res ult [facility] [address] [place] [address] * POCT glucose meter (08/21/2024 4:18 PM EDT) [facility] Signature POCT Glucose 95 74 - 99 mg/dL 08/21/2024 4:23 PM EDT [facility] Comment:Accuracy of a glucos e result obtained from a capillary whole blood specimen relies upon adequate, non-compromised capillary blood flow. If the capillary glucose result is not consistent with the patient's clinical signs and symptoms, glucose testing should be repeated with either an arterial or venous sample on the glucometer or sent to the main labortory for testing. Comment 08/21/2024 4:23 PM EDT [facility] Application Analyst ID Alysia Werner 08/22/19 4:23 PM EDT [facility] Device ID [id number] 08/21/2024 4:23 PM EDT [facility] Specimen Type POC Capillary 08/21/2024 4:23 PM EDT [facility] Blood Capillary blood specimen / Unknown 08/21/2024 4:18 PM EDT 08/21/2024 4:23 PM EDT us Kenneth James MD LAB POINT OF CARE TE ST DOCKED DEVICE UNSOLICITED RESULTS Final Result [facility] [address] [place] [address] * (ABNORMAL) POCT glucose meter (08/21/2024 11:24 AM EDT) [facility] POCT Glucose 330(H) 74 - 99 mg/dL 08/21/2024 11:27 AM EDT [facility] Comment:Accuracy of [...] to the main labortory for testing. Comment 08/21/2024 11:27 AM EDT [facility] Application Analyst ID Alysia Werner 08/22/19 11:27 AM EDT [facility] Device ID [id number] 08/21/2024 11:27 AM EDT [facility] Specimen Type POC Capillary 08/21/2024 11:27 AM EDT [facility] Blood Capillary blood specimen / Unknown 08/21/2024 11:24 AM EDT 08/21/2024 11:27 AM EDT Kenneth James MD LAB POINT OF CARE TE ST DOCKED DEVICE UNSOLICITED RESULTS Final Result [facility] [address] [place] [address] * (ABNORMAL) POCT glucose meter (08/21/2024 8:05 AM EDT) [facility] POCT Glucose 332(H) 74 - 99 mg/dL 08/21/2024 8:06 AM EDT [facility] Comment:Accuracy of [...] to the main labortory for testing. Comment 08/21/2024 8:06 AM EDT [facility] Application Analyst ID Alysia Werner 08/22/19 8:06 AM EDT [facility] Device ID [id number] 08/21/2024 8:06 AM EDT [facility] Specimen Type POC Capillary 08/21/2024 8:06 AM EDT [facility] Blood Capillary blood specimen / Unknown 08/21/2024 8:05 AM EDT 08/21/2024 8:06 AM EDT Kenneth James MD LAB POINT OF CARE TE ST DOCKED DEVICE UNSOLICITED RESULTS Final Result [facility] [address] [place] [id number] * XR Chest 1 View (08/21/2024 7:01 AM EDT) Anatomical Region Laterality Modality Chest Digital Radiogra phy Impressions 08/21/2024 2:34 PM EDT Stable small left and increased small right pleural effusion. CRITICAL RESULT: No. COMMUNICATION: Per this written report. Drafted by Amanda Chatman MD on 08/21/2024 2:33 PM Final report signed by Amanda Chatman MD on 08/21/2024 2:34 PM Narrative 08/21/2024 2:34 PM EDT CLINICAL INDICATION: evaluate lung choi. TECHNIQUE: XR CHEST 1 VIEW COMPARISON: 08/20/2024 FINDINGS: Stably positioned support devices. Stable small left and increased small right pleural effusion. Similar bibasilar atelectasis. No pneumothorax. Cardiac silhouette and mediastinal contours are stable. Procedure Note Amanda Chatman MD - 08/21/2024 CLINICAL INDICATION: evaluate lung choi. TECHNIQUE: XR CHEST 1 VIEW COMPARISON: 08/20/2024 FINDINGS: Stably positioned support devices. Stable small left and increased smallright pleural effusion. Similar bibasilar atelectasis. No pneumothorax.Cardiac silhouette and mediastinal contours are stable. IMPRESSION: Stable small left and increased small right pleural effusion. CRITICAL RESULT: No. COMMUNICATION: Per this written report. Drafted by Amanda Chatman MD on 08/21/2024 2:33 PM Final report signed by Amanda Chatman MD on 08/21/2024 2:34 PM us Boby D Rouse PRECISION LATHE OPERATOR IMG XR PROCEDURES Final Res ult * Prothrombin Time/INR (08/21/2024 4:04 AM EDT) Prothrombin Time 13.8 12.0 - 14.3 sec LAB COAGULATION METHOD 08/21/2024 4:52 AM EDT [facility] INR 1.1 0.9 - 1.1 LAB COAGULATION METHOD 08/21/2024 4:52 AM EDT [facility] Blood Venous blood specimen / Unknown Venipuncture / Unknown 08/21/2024 4:04 AM EDT 08/21/2024 4:31 AM EDT Narrative [facility] - 08/21/2024 4:52 AM EDT OPTIMAL INR RANGES FOR PATIENT ON ORAL ANTICOAGULANT THERAPY Prevention of venous thromboembolism INR 2.0 to 3.0 In patients with heart disease: Atrial fibrillation INR 2.0 to 3.0 Valvular heart disease INR 2.0 to 3.0 Tissue heart valves INR 2.0 to 3.0 Mechanical prosthetic valves INR 2.5 to 3.5 Prevention of recurrent GA INR 2.5 to 3.5 us Kenneth James MD LAB BLOOD ORDERABLES Final Res ult [facility] [address] [place] [address] * (ABNORMAL) Basic metabolic panel (08/21/2024 4:04 AM EDT) Glucose, Plasma 401(H) 74 - 99 mg/dL 08/21/2024 5:05 AM EDT [facility] BUN, Plasma 32(H) 8 - 23 mg/dL 08/21/2024 5:05 AM EDT [facility] Creatinine, Plasma 0.99 0.60 - 1.10 mg/dL 08/21/2024 5:05 AM EDT [facility] BUN/Creatinine Ratio 32 08/21/2024 5:05 AM EDT [facility] Sodium, Plasma 125(L) 136 - 145 mmol/L 08/21/2024 5:05 AM EDT [facility] Potassium, Plasma 4.0 3.6 - 4.9 mmol/L 08/21/2024 5:05 AM EDT [facility] Chloride, Plasma 85(L) 97 - 107 mmol/L 08/21/2024 5:05 AM EDT [facility] CO2, Plasma 29 22 - 29 mmol/L 08/21/2024 5:05 AM EDT [facility] Anion Gap 11 6 - 16 mmol/L 08/21/2024 5:05 AM EDT [facility] Total Calcium, Plasma 9.0 8.9 - 10.2 mg/dL 08/21/2024 5:05 AM EDT [facility] eGFRcr 60.3 mL/min/1.7 3m*2 08/21/2024 5:05 AM EDT [facility] Comment:Reported eGFRcr in m L/min/1.73m2 is based the CKD-EPI 2020 equation that does not use a race coefficient. Blood Venous blood specimen / Unknown Venipuncture / Unknown 08/21/2024 4:04 AM EDT 08/21/2024 4:31 AM EDT us Kenneth James MD LAB BLOOD ORDERABLES Final Res ult [facility] [address] [place] [address] * (ABNORMAL) POCT glucose meter (08/21/2024 3:47 AM EDT) POCT Glucose 369(H) 74 - 99 mg/dL 08/21/2024 3:49 AM EDT [facility] Comment:Accuracy of a glucos e result obtained from a capillary whole blood specimen relies upon adequate, non-compromised capillary blood flow. If the capillary glucose result is not consistent with the patient's clinical signs and symptoms, glucose testing should be repeated with either an arterial or venous sample on the glucometer or sent to the main labortory for testing. Comment 08/21/2024 3:49 AM EDT [facility] Application Analyst ID Marlene Jain 08/21/2024 3:49 AM EDT [facility] Device ID [id number] 08/21/2024 3:49 AM EDT [facility] Specimen Type POC Capillary 08/21/2024 3:49 AM EDT [facility] Blood Capillary blood specimen / Unknown 08/21/2024 3:47 AM EDT 08/21/2024 3:49 AM EDT Kenneth James MD LAB POINT OF CARE TE ST DOCKED DEVICE UNSOLICITED RESULTS Final Result Performing Organization Address City/[facility]/ZIP Co de Phone Number [facility]ALTHCARE [facility] [address] [place] [address] * (ABNORMAL) POCT glucose meter (08/20/2024 7:51 PM EDT) POCT Glucose 275(H) 74 - 99 mg/dL 08/20/2024 7:52 PM EDT [facility] Comment:Accuracy of [...] to the main labortory for testing. Comment 08/20/2024 7:52 PM EDT [facility] Application Analyst ID Karson Kaufman 08/21/19 7:52 PM EDT [facility] Device ID [id number] 08/20/2024 7:52 PM EDT [facility] Specimen Type POC Capillary 08/20/2024 7:52 PM EDT [facility] Blood Capillary blood specimen / Unknown 08/20/2024 7:51 PM EDT 08/20/2024 7:52 PM EDT Kenneth James MD LAB POINT OF CARE TE ST DOCKED DEVICE UNSOLICITED RESULTS Final Result Performing Organization Address City/[facility]/ZIP Co de Phone Number [facility]ALTH[facility]ARE [facility] [address] [place] [address] * (ABNORMAL) POCT glucose meter (08/20/2024 5:05 PM EDT) POCT Glucose 217(H) 74 - 99 mg/dL 08/20/2024 5:08 PM EDT [facility] Comment:Accuracy of [...] to the main labortory for testing. Comment 08/20/2024 5:08 PM EDT [facility] Application Analyst ID Basia Cole 08/20/2024 5:08 PM EDT [facility] Device ID [id number] 08/20/2024 5:08 PM EDT [facility] Specimen Type POC Capillary 08/20/2024 5:08 PM EDT [facility] Blood Capillary blood specimen / Unknown 08/20/2024 5:05 PM EDT 08/20/2024 5:08 PM EDT Kenneth James MD LAB POINT OF CARE TE ST DOCKED DEVICE UNSOLICITED RESULTS Final Result Performing Organization Address City/State/[facility] Co de Phone Number [facility]ARE [facility] [address] [place] [address] * (ABNORMAL) POCT glucose meter (08/20/2024 12:16 PM EDT) [facility] POCT Glucose 373(H) 74 - 99 mg/dL 08/20/2024 12:18 PM EDT [facility] Comment:Accuracy of [...] to the main labortory for testing. Comment 08/20/2024 12:18 PM EDT [facility] Application Analyst ID Basia Cole 08/20/2024 12:18 PM EDT [facility] Device ID [id number] 08/20/2024 12:18 PM EDT [facility] Specimen Type POC Capillary 08/20/2024 12:18 PM EDT [facility] Blood Capillary blood specimen / Unknown 08/20/2024 12:16 PM EDT 08/20/2024 12:18 PM EDT Kenneth James MD LAB POINT OF CARE TE ST DOCKED DEVICE UNSOLICITED RESULTS Final Result [facility] [address] [place] [address] * (ABNORMAL) POCT glucose meter (08/20/2024 8:14 AM EDT) POCT Glucose 225(H) 74 - 99 mg/dL 08/20/2024 8:16 AM EDT [facility] Comment:Accuracy of [...] to the main labortory for testing. Comment 08/20/2024 8:16 AM EDT [facility] Application Analyst ID Basia Cole 08/20/2024 8:16 AM EDT [facility] Device ID [id number] 08/20/2024 8:16 AM EDT [facility] Specimen Type POC Capillary 08/20/2024 8:16 AM EDT [facility] Blood Capillary blood specimen / Unknown 08/20/2024 8:14 AM EDT 08/20/2024 8:16 AM EDT Kenneth James MD LAB POINT OF CARE TE ST DOCKED DEVICE UNSOLICITED RESULTS Final Result Performing Organization Address City/[facility]/ZIP Co de Phone Number [facility] [address] [place] [address] * XR Chest 1 View (08/20/2024 6:58 AM EDT) Anatomical Region Laterality Modality Chest Digital Radiogra phy Impressions 08/20/2024 9:55 AM EDT Slight improved aeration CRITICAL RESULT: No. COMMUNICATION: Per this written report. Drafted by Macho Muir MD on 08/20/2024 9:54 AM Final report signed by Macho Muir MD on 08/20/2024 9:55 AM Narrative 08/20/2024 9:55 AM EDT CLINICAL INDICATION: status post chemical pleurodesis TECHNIQUE: XR CHEST 1 VIEW COMPARISON: 08/19/2024. FINDINGS: Pigtail catheter within the right lung base. No pneumothorax. Bibasilar opacities, improved. Trace pleural effusions. Cardiomediastinal silhouette is stable. Procedure Note Macho Muir MD - 08/20/2024 CLINICAL INDICATION: status post chemical pleurodesis TECHNIQUE: XR CHEST 1 VIEW COMPARISON: 08/19/2024. FINDINGS: Pigtail catheter within the right lung base. No pneumothorax. Bibasilaropacities, improved. Trace pleural effusions. Cardiomediastinal silhouetteis stable. IMPRESSION: Slight improved aeration CRITICAL RESULT: No. COMMUNICATION: Per this written report. Drafted by Macho Muir MD on 08/20/2024 9:54 AM Final report signed by Macho Muir MD on 08/20/2024 9:55 AM Boby Rouse PRECISION LATHE OPERATOR IMG XR PROCEDURES Final Res ult * (ABNORMAL) POCT glucose meter (08/20/2024 3:23 AM EDT) [facility] Signature POCT Glucose 218(H) 74 - 99 mg/dL 08/20/2024 3:25 AM EDT [facility] Comment:Accuracy of [...] to the main labortory for testing. Comment 08/20/2024 3:25 AM EDT [facility] Application Analyst ID Karson Kaufman 08/21/19 3:25 AM EDT [facility] Device ID [id number] 08/20/2024 3:25 AM EDT [facility] Specimen Type POC Capillary 08/20/2024 3:25 AM EDT [facility] Blood Capillary blood specimen / Unknown 08/20/2024 3:23 AM EDT 08/20/2024 3:25 AM EDT Kenneth James MD LAB POINT OF CARE TE ST DOCKED DEVICE UNSOLICITED RESULTS Final Result [facility] [address] [place] [address] * Prothrombin Time/INR (08/20/2024 1:57 AM EDT) Prothrombin Time 13.7 12.0 - 14.3 sec LAB COAGULATION METHOD 08/20/2024 2:21 AM EDT [facility] INR 1.0 0.9 - 1.1 LAB COAGULATION METHOD 08/20/2024 2:21 AM EDT [facility] Blood Venous blood specimen / Unknown Venipuncture / Unknown 08/20/2024 1:57 AM EDT 08/20/2024 2:02 AM EDT Narrative [facility] - 08/20/2024 2:21 AM EDT OPTIMAL INR RANGES FOR PATIENT ON ORAL ANTICOAGULANT THERAPY Prevention of venous thromboembolism INR 2.0 to 3.0 In patients with heart disease: Atrial fibrillation INR 2.0 to 3.0 Valvular heart disease INR 2.0 to 3.0 Tissue heart valves INR 2.0 to 3.0 Mechanical prosthetic valves INR 2.5 to 3.5 Prevention of recurrent GA INR 2.5 to 3.5 us Kenneth James MD LAB BLOOD ORDERABLES Final Res ult Performing Organization Address City/[facility]/ZIP Co de Phone Number [facility] [address] [place] [address] * (ABNORMAL) Magnesium (08/20/2024 1:57 AM EDT) Magnesium, Plasma 1.8(L) 1.9 - 2.4 mg/dL 08/20/2024 3:18 AM EDT [facility] Blood Venous blood specimen / Unknown Venipuncture / Unknown 08/20/2024 1:57 AM EDT 08/20/2024 2:02 AM EDT us Kenneth James MD LAB BLOOD ORDERABLES Final Res ult Performing Organization Address City/[facility]/ZIP Co de Phone Number [facility] [address] [place] [address] * (ABNORMAL) Basic metabolic panel (08/20/2024 1:57 AM EDT) Glucose, Plasma 216(H) 74 - 99 mg/dL 08/20/2024 3:18 AM EDT [facility] BUN, Plasma 29(H) 8 - 23 mg/dL 08/20/2024 3:18 AM EDT [facility] Creatinine, Plasma 0.97 0.60 - 1.10 mg/dL 08/20/2024 3:18 AM EDT [facility] BUN/Creatinine Ratio 30 08/20/2024 3:18 AM EDT [facility] Sodium, Plasma 125(L) 136 - 145 mmol/L 08/20/2024 3:18 AM EDT [facility] Potassium, Plasma 4.8 3.6 - 4.9 mmol/L 08/20/2024 3:18 AM EDT [facility] Comment:Hemolyzed, result ma y be falsely increased. Chloride, Plasma 85(L) 97 - 107 mmol/L 08/20/2024 3:18 AM EDT [facility] CO2, Plasma 26 22 - 29 mmol/L 08/20/2024 3:18 AM EDT [facility] Anion Gap 14 6 - 16 mmol/L 08/20/2024 3:18 AM EDT [facility] Total Calcium, Plasma 9.5 8.9 - 10.2 mg/dL 08/20/2024 3:18 AM EDT [facility] eGFRcr 61.8 mL/min/1.7 3m*2 08/20/2024 3:18 AM EDT [facility] Comment:Reported eGFRcr in m L/min/1.73m2 is based the CKD-EPI 2020 equation that does not use a race coefficient. Blood Venous blood specimen / Unknown Venipuncture / Unknown 08/20/2024 1:57 AM EDT 08/20/2024 2:02 AM EDT us Kenneth James MD LAB BLOOD ORDERABLES Final Res ult [facility] [address] [place] [address] * (ABNORMAL) POCT glucose meter (08/19/2024 7:49 PM EDT) [facility] POCT Glucose 308(H) 74 - 99 mg/dL 08/19/2024 7:51 PM EDT [facility] Comment:Accuracy of [...] to the main labortory for testing. Comment 08/19/2024 7:51 PM EDT [facility] Application Analyst ID Karson Kaufman 08/20/19 7:51 PM EDT [facility] Device ID [id number] 08/19/2024 7:51 PM EDT [facility] Specimen Type POC Capillary 08/19/2024 7:51 PM EDT [facility] Blood Capillary blood specimen / Unknown 08/19/2024 7:49 PM EDT 08/19/2024 7:51 PM EDT Kenneth James MD LAB POINT OF CARE TE ST DOCKED DEVICE UNSOLICITED RESULTS Final Result [facility] [address] [place] [address] * (ABNORMAL) POCT glucose meter (08/19/2024 4:03 PM EDT) [facility] POCT Glucose 279(H) 74 - 99 mg/dL 08/19/2024 4:04 PM EDT [facility] Comment:Accuracy of [...] to the main labortory for testing. Comment 08/19/2024 4:04 PM EDT [facility] Application Analyst ID RolleMichelle [email or web address] 08/20/19 4:04 PM EDT [facility] Device ID [id number] 08/19/2024 4:04 PM EDT [facility] Specimen Type POC Capillary 08/19/2024 4:04 PM EDT [facility] Blood Capillary blood specimen / Unknown 08/19/2024 4:03 PM EDT 08/19/2024 4:04 PM EDT Kenneth James MD LAB POINT OF CARE TE ST DOCKED DEVICE UNSOLICITED RESULTS Final Result Performing Organization Address City/[facility] Co de Phone Number [facility] [address] [place] [address] * (ABNORMAL) POCT glucose meter (08/19/2024 11:51 AM EDT) POCT Glucose 350(H) 74 - 99 mg/dL 08/19/2024 11:52 AM EDT [facility] Comment:Accuracy of [...] to the main labortory for testing. Comment 08/19/2024 11:52 AM EDT [facility] Application Analyst ID Ekaterina Gustafson 08/20/19 11:52 AM EDT [facility] Device ID [id number] 08/19/2024 11:52 AM EDT [facility] Specimen Type POC Capillary 08/19/2024 11:52 AM EDT [facility] Blood Capillary blood specimen / Unknown 08/19/2024 11:51 AM EDT 08/19/2024 11:52 AM EDT Kenneth James MD LAB POINT OF CARE TE ST DOCKED DEVICE UNSOLICITED RESULTS Final Result Performing Organization Address City/[facility] Co de Phone Number [facility]ARE [facility] [address] [place] [address] * (ABNORMAL) POCT glucose meter (08/19/2024 8:06 AM EDT) POCT Glucose 254(H) 74 - 99 mg/dL 08/19/2024 8:08 AM EDT [facility] Comment:Accuracy of [...] to the main labortory for testing. Comment 08/19/2024 8:08 AM EDT [facility] Application Analyst ID Ekaterina Gustafson 08/20/19 25 8:08 AM EDT [facility] Device ID [id number] 08/19/2024 8:08 AM EDT [facility] Specimen Type POC Capillary 08/19/2024 8:08 AM EDT [facility] Blood Capillary blood specimen / Unknown 08/19/2024 8:06 AM EDT 08/19/2024 8:08 AM EDT us Kenneth James MD LAB POINT OF CARE TE ST DOCKED DEVICE UNSOLICITED RESULTS Final Result Performing Organization Address City/State/[facility] Phone Number [facility]ARE [facility] [address] [place] [address] * XR Chest 1 View (08/19/2024 7:54 AM EDT) Anatomical Region Laterality Modality Chest Digital Radiogra phy Impressions 08/19/2024 8:53 AM EDT No significant interval change. CRITICAL RESULT: No. COMMUNICATION: Per this written report. Drafted by Macho Muir MD on 08/19/2024 8:52 AM Final report signed by Macho Muir MD on 08/19/2024 8:53 AM Narrative 08/19/2024 8:53 AM EDT CLINICAL INDICATION: Evaluate right lung TECHNIQUE: XR CHEST 1 VIEW COMPARISON: 08/18/2024. FINDINGS: Left chest wall cardiac pacer. Bilateral pleural effusions and bibasilar opacities. No pneumothorax. Procedure Note Macho Muir MD - 08/19/2024 CLINICAL INDICATION: Evaluate right lung TECHNIQUE: XR CHEST 1 VIEW COMPARISON: 08/18/2024. FINDINGS: Left chest wall cardiac pacer. Bilateral pleural effusions and bibasilaropacities. No pneumothorax. IMPRESSION: No significant interval change. CRITICAL RESULT: No. COMMUNICATION: Per this written report. Drafted by Macho Muir MD on 08/19/2024 8:52 AM Final report signed by Macho Muir MD on 08/19/2024 8:53 AM Boby Rouse PRECISION LATHE OPERATOR IMG XR PROCEDURES Final Res ult * (ABNORMAL) Prothrombin Time/INR (08/19/2024 5:00 AM EDT) Prothrombin Time 15.9(H) 12.0 - 14.3 sec LAB COAGULATION METHOD 08/19/2024 5:55 AM EDT [facility] INR 1.3(H) 0.9 - 1.1 LAB COAGULATION METHOD 08/19/2024 5:55 AM EDT [facility] Blood Venous blood specimen / Unknown Venipuncture / Unknown 08/19/2024 5:00 AM EDT 08/19/2024 5:18 AM EDT Narrative [facility] - 08/19/2024 5:55 AM EDT OPTIMAL INR RANGES FOR PATIENT ON ORAL ANTICOAGULANT THERAPY Prevention of venous thromboembolism INR 2.0 to 3.0 In patients with heart disease: Atrial fibrillation INR 2.0 to 3.0 Valvular heart disease INR 2.0 to 3.0 Tissue heart valves INR 2.0 to 3.0 Mechanical prosthetic valves INR 2.5 to 3.5 Prevention of recurrent GA INR 2.5 to 3.5 Kenneth James MD LAB BLOOD ORDERABLES Final Res ult [facility] [address] [place] [address] * (ABNORMAL) Magnesium (08/19/2024 5:00 AM EDT) Magnesium, Plasma 1.7(L) 1.9 - 2.4 mg/dL 08/19/2024 5:47 AM EDT [facility] Blood Venous blood specimen / Unknown Venipuncture / Unknown 08/19/2024 5:00 AM EDT 08/19/2024 5:18 AM EDT us Kenneth James MD LAB BLOOD ORDERABLES Final Res ult [facility] [address] [place] [address] * (ABNORMAL) Basic metabolic panel (08/19/2024 5:00 AM EDT) Glucose, Plasma 235(H) 74 - 99 mg/dL 08/19/2024 5:47 AM EDT [facility] BUN, Plasma 31(H) 8 - 23 mg/dL 08/19/2024 5:47 AM EDT [facility] Creatinine, Plasma 1.01 0.60 - 1.10 mg/dL 08/19/2024 5:47 AM EDT [facility] BUN/Creatinine Ratio 31 08/19/2024 5:47 AM EDT [facility] Sodium, Plasma 132(L) 136 - 145 mmol/L 08/19/2024 5:47 AM EDT [facility] Potassium, Plasma 4.4 3.6 - 4.9 mmol/L 08/19/2024 5:47 AM EDT [facility] Chloride, Plasma 90(L) 97 - 107 mmol/L 08/19/2024 5:47 AM EDT [facility] CO2, Plasma 30(H) 22 - 29 mmol/L 08/19/2024 5:47 AM EDT [facility] Anion Gap 12 6 - 16 mmol/L 08/19/2024 5:47 AM EDT [facility] Total Calcium, Plasma 8.7(L) 8.9 - 10.2 mg/dL 08/19/2024 5:47 AM EDT [facility] eGFRcr 58.9 mL/min/1.7 3m*2 08/19/2024 5:47 AM EDT [facility] Comment:Reported eGFRcr in m L/min/1.73m2 is based the CKD-EPI 2020 equation that does not use a race coefficient. Blood Venous blood specimen / Unknown Venipuncture / Unknown 08/19/2024 5:00 AM EDT 08/19/2024 5:18 AM EDT us Kenneth James MD LAB BLOOD ORDERABLES Final Res ult Performing Organization Address City/[facility]/ZIP Co de Phone Number [facility] [address] [place] [address] * (ABNORMAL) POCT glucose meter (08/19/2024 3:40 AM EDT) POCT Glucose 198(H) 74 - 99 mg/dL 08/19/2024 3:41 AM EDT [facility] Comment:Accuracy of a glucos e result obtained from a capillary whole blood specimen relies upon adequate, non-compromised capillary blood flow. If the capillary glucose result is not consistent with the patient's clinical signs and symptoms, glucose testing should be repeated with either an arterial or venous sample on the glucometer or sent to the main labortory for testing. Comment 08/19/2024 3:41 AM EDT [facility] Application Analyst ID Veronica Kellogg [id number] 3:41 AM EDT [facility] Device ID [id number] 08/19/2024 3:41 AM EDT [facility] Specimen Type POC Capillary 08/19/2024 3:41 AM EDT [facility] Blood Capillary blood specimen / Unknown 08/19/2024 3:40 AM EDT 08/19/2024 3:41 AM EDT us Kenneth James MD LAB POINT OF CARE TE ST DOCKED DEVICE UNSOLICITED RESULTS Final Result Performing Organization Address City/[place] [facility]/ZIP Co de Phone Number HEALTHCARE LAB [address] [place] [address] * (ABNORMAL) POCT glucose meter (08/19/2024 3:05 AM EDT) POCT Glucose 62(L) 74 - 99 mg/dL 08/19/2024 3:07 AM EDT [facility] Comment:Accuracy of [...] to the main labortory for testing. Comment 08/19/2024 3:07 AM EDT HEALTHCARE LAB Application Analyst ID Darin Florez 3:07 AM EDT [facility]ALTHCARE LAB Device ID [id number] 08/19/2024 3:07 AM EDT [facility]ALTHCARE LAB Specimen Type POC Capillary 08/19/2024 3:07 AM EDT [facility] LAB Blood Capillary blood specimen / Unknown 08/19/2024 3:05 AM EDT 08/19/2024 3:07 AM EDT Kenneth James MD LAB POINT OF CARE TE ST DOCKED DEVICE UNSOLICITED RESULTS Final Result Performing Organization Address City/[facility] Co de Phone Number HEALTHCARE LAB [address] [place] [address] * (ABNORMAL) POCT glucose meter (08/19/2024 1:59 AM EDT) [facility] Signature POCT Glucose 73(L) 74 - 99 mg/dL 08/19/2024 2:02 AM EDT [facility] Comment:Accuracy of [...] to the main labortory for testing. Comment 08/19/2024 2:02 AM EDT HEALTHCARE LAB Application Analyst ID Darin Florez 2:02 AM EDT HEALTHCARE LAB Device ID [id number] 08/19/2024 2:02 AM EDT HEALTHCARE LAB Specimen Type POC Capillary 08/19/2024 2:02 AM EDT [facility]ALTHCARE LAB Blood Capillary blood specimen / Unknown 08/19/2024 1:59 AM EDT 08/19/2024 2:02 AM EDT us Kenneth James MD LAB POINT OF CARE TE ST DOCKED DEVICE UNSOLICITED RESULTS Final Result Performing Organization Address City/[facility]/ZIP Co de Phone Number HEALTHCARE LAB [address] [place] [address] * (ABNORMAL) POCT glucose meter (08/19/2024 1:03 AM EDT) [facility] POCT Glucose 51(L) 74 - 99 mg/dL 08/19/2024 1:05 AM EDT HEALTHCARE LAB Comment:Accuracy of a glucos e result obtained from a capillary whole blood specimen relies upon adequate, non-compromised capillary blood flow. If the capillary glucose result is not consistent with the patient's clinical signs and symptoms, glucose testing should be repeated with either an arterial or venous sample on the glucometer or sent to the main labortory for testing. Comment 08/19/2024 1:05 AM EDT HEALTHCARE LAB Application Analyst ID Veronica Kellogg 025 1:05 AM EDT HEALTHCARE LAB Device ID [id number] 08/19/2024 1:05 AM EDT HEALTHCARE LAB Specimen Type POC Capillary 08/19/2024 1:05 AM EDT [facility] Blood Capillary blood specimen / Unknown 08/19/2024 1:03 AM EDT 08/19/2024 1:05 AM EDT Kenneth James MD LAB POINT OF CARE TE ST DOCKED DEVICE UNSOLICITED RESULTS Final Result Performing Organization Address City/State/[facility] Co de Phone Number HEALTHCARE LAB [address] [place] [address] * (ABNORMAL) POCT glucose meter (08/18/2024 11:00 PM EDT) [facility] POCT Glucose 290(H) 74 - 99 mg/dL 08/18/2024 11:02 PM EDT HEALTHCARE LAB Comment:Accuracy of a glucos e result obtained from a capillary whole blood specimen relies upon adequate, non-compromised capillary blood flow. If the capillary glucose result is not consistent with the patient's clinical signs and symptoms, glucose testing should be repeated with either an arterial or venous sample on the glucometer or sent to the main labortory for testing. Comment 08/18/2024 11:02 PM EDT HEALTHCARE LAB Application Analyst ID Veronica Kellogg 025 11:02 PM EDT HEALTHCARE LAB Device ID [id number] 08/18/2024 11:02 PM EDT HEALTHCARE LAB Specimen Type POC Capillary 08/18/2024 11:02 PM EDT HEALTHCARE LAB Blood Capillary blood specimen / Unknown 08/18/2024 11:00 PM EDT 08/18/2024 11:02 PM EDT Kenneth James MD LAB POINT OF CARE TE ST DOCKED DEVICE UNSOLICITED RESULTS Final Result Performing Organization Address City/[facility]/ZIP Co de Phone Number HEALTHCARE LAB [address] [place] [address] * (ABNORMAL) POCT glucose meter (08/18/2024 7:39 PM EDT) POCT Glucose 430(H) 74 - 99 mg/dL 08/18/2024 7:42 PM EDT [facility] Comment:Accuracy of [...] to the main labortory for testing. Comment 08/18/2024 7:42 PM EDT HEALTHCARE LAB Application Analyst ID Veronica Kellogg 025 7:42 PM EDT HEALTHCARE LAB Device ID [id number] 08/18/2024 7:42 PM EDT HEALTHCARE LAB Specimen Type POC Capillary 08/18/2024 7:42 PM EDT [facility] Blood Capillary blood specimen / Unknown 08/18/2024 7:39 PM EDT 08/18/2024 7:42 PM EDT Kenneth James MD LAB POINT OF CARE TE ST DOCKED DEVICE UNSOLICITED RESULTS Final Result [facility] [address] [place] [address] * (ABNORMAL) POCT glucose meter (08/18/2024 4:23 PM EDT) POCT Glucose 365(H) 74 - 99 mg/dL 08/18/2024 4:32 PM EDT [facility] Comment:Accuracy of [...] to the main labortory for testing. Comment 08/18/2024 4:32 PM EDT HEALTHCARE LAB Application Analyst ID Partha Zhu 08/19/19 4:32 PM EDT HEALTHCARE LAB Device ID [id number] 08/18/2024 4:32 PM EDT HEALTHCARE LAB Specimen Type POC Capillary 08/18/2024 4:32 PM EDT HEALTHCARE LAB Blood Capillary blood specimen / Unknown 08/18/2024 4:23 PM EDT 08/18/2024 4:32 PM EDT us Kenneth James MD LAB POINT OF CARE TE ST DOCKED DEVICE UNSOLICITED RESULTS Final Result Performing Organization Address City/State/[facility] Co de Phone Number HEALTHCARE LAB [address] [place] [address] * RIGHT HEART CATHETERIZATION (08/18/2024 4:04 PM EDT) Anatomical Region Laterality Modality Other Narrative 08/19/2024 2:25 PM EDT Conclusion: 1. Mildly elevated right and left-sided filling pressures. 2. Mildly elevated PA pressure (PA mean 30mmHg) with mild pre and post-capillary pulmonary hypertension (PVR 2.91 if using Cristiano cardiac output, 4.36 if using thermodilution cardiac output. The truth likely lies somewhere in the middle.) 3. Normal cardiac index by Cristiano, reduced cardiac index by thermodilution. Recommendations: 1. Findings communicated to inpatient cardiology consult service. I, Brenden Zamora, was present for the entire procedure. Procedure Details After informed consent was obtained the patient was brought to the cardiac catheterization laboratory. A time out was conducted. The right neck was prepared and draped in the usual sterile fashion. Using ultrasound guidance, the tissue overlying the right internal jugular vein was anesthetized with 1% lidocaine. Using modified Seldinger technique and an 18-gauge Cook needle under ultrasound guidance, the right internal jugular vein was punctured, and a 0.035 J-tipped guidewire advanced into the central venous circulation. An 8F introducer was placed. Right heart catheterization was then carried out using a 7.5F VIP [place]-Carter catheter. Pressures were recorded as the catheter was advanced from the right atrium to the pulmonary artery, including the pulmonary capillary wedge pressure. A blood sample was obtained from the pulmonary artery for mixed venous oxygen saturation. Thermodilution was performed. The introducer was then removed and hemostasis was achieved with 5 minutes of light manual pressure. The catheterization site was dressed with a sterile dressing, and the patient was transferred back to the chemistry lab instructor holding area in good condition. Study Details CHF Hemodynamic Data Pressures Phase: Resting Right RA Mean: 11 mmHg RV: 45/6 mmHg Pulmonary PA: 50/19 (30) mmHg PCW Mean: 18.0 mmHg Jeanna: 2.8 Hemodynamic Data Cardiac Output and Resistance Phase: Resting Thermo CO: 3 L/min CI: 1.8 L/min/m2 Resistance Thermo PVR: 4.0 [place] Thermo PVR: 320 (dyne x sec)/cm5 Hemodynamic Data Saturations Phase: Resting Saturations PA: 61 % Kenneth James MD CV CARDIAC CATH PROCEDURES Fin al Result * (ABNORMAL) POCT Co-Oximetry Mixed Venous (08/18/2024 3:52 PM EDT) [facility] POCT Oxyhemoglobin, Mixed Venous 60.8 % 08/18/2024 3:53 PM EDT HEALTHCARE LAB Application Analyst ID Vittitow, Ngozi 08/18/2024 3:53 PM EDT HEALTHCARE LAB Device ID [id number] 08/18/2024 3:53 PM EDT [facility] POCT Sample Site PA 08/18/2024 3:53 PM EDT [facility] POCT Total Hemoglobin 9.7(L) 11.2 - 15.7 g/dL 08/18/2024 3:53 PM EDT [facility] 08/18/2024 3:52 PM EDT 08/18/2024 3:53 PM EDT Kenneth James MD LAB POINT OF CARE TE ST DOCKED DEVICE UNSOLICITED RESULTS Final Result [facility] [address] [place] [address] * (ABNORMAL) POCT CO-Oximitry, Venous (08/18/2024 3:50 PM EDT) [facility] POCT OXYHEMOGLOBIN, VENOUS 65 40 - 70 % 08/18/2024 3:50 PM EDT HEALTHCARE LAB Application Analyst ID Ngozi Linares 08/18/2024 3:50 PM EDT HEALTHCARE LAB Device ID [id number] 08/18/2024 3:50 PM EDT HEALTHCARE LAB POCT Sample Site -[facility]- 08/18/2024 3:50 PM EDT HEALTHCARE LAB POCT Total Hemoglobin 9.7(L) 11.2 - 15.7 g/dL 08/18/2024 3:50 PM EDT HEALTHCARE LAB Venous blood specimen / Unknown 08/18/2024 3:50 PM EDT 08/18/2024 3:50 PM EDT Kenneth James MD LAB POINT OF CARE TE ST DOCKED DEVICE UNSOLICITED RESULTS Final Result [facility] [address] [place] [address] * (ABNORMAL) POCT glucose meter (08/18/2024 11:26 AM EDT) [facility] POCT Glucose 352(H) 74 - 99 mg/dL 08/18/2024 11:34 AM EDT [facility] Comment:Accuracy of [...] to the main labortory for testing. Comment 08/18/2024 11:34 AM EDT [facility] Application Analyst ID Partha Zhu 08/19/19 11:34 AM EDT HEALTHCARE LAB Device ID [id number] 08/18/2024 11:34 AM EDT HEALTHCARE LAB Specimen Type POC Capillary 08/18/2024 11:34 AM EDT HEALTHCARE LAB Blood Capillary blood specimen / Unknown 08/18/2024 11:26 AM EDT 08/18/2024 11:34 AM EDT Kenneth James MD LAB POINT OF CARE TE ST DOCKED DEVICE UNSOLICITED RESULTS Final Result Performing Organization Address [facility] de Phone Number HEALTHCARE LAB [address] [place] [address] * (ABNORMAL) POCT glucose meter (08/18/2024 7:30 AM EDT) [facility] POCT Glucose 267(H) 74 - 99 mg/dL 08/18/2024 7:43 AM EDT [facility] Comment:Accuracy of [...] to the main labortory for testing. Comment 08/18/2024 7:43 AM EDT [facility] Application Analyst ID Partha Zhu 08/19/19 7:43 AM EDT HEALTHCARE LAB Device ID [id number] 08/18/2024 7:43 AM EDT [facility] Specimen Type POC Capillary 08/18/2024 7:43 AM EDT HEALTHCARE LAB Blood Capillary blood specimen / Unknown 08/18/2024 7:30 AM EDT 08/18/2024 7:43 AM EDT Kenneth James MD LAB POINT OF CARE TE ST DOCKED DEVICE UNSOLICITED RESULTS Final Result Performing Organization Address City/[facility] Co de Phone Number [facility] [address] [place] [address] * XR Chest 1 View (08/18/2024 6:25 AM EDT) Anatomical Region Laterality Modality Chest Digital Radiogra phy Impressions 08/18/2024 7:47 AM EDT Interval development of small right apical pneumothorax. CRITICAL RESULT: No. COMMUNICATION: Per this written report. Drafted by Macho Muir MD on 08/18/2024 7:47 AM Final report signed by Macho Muir MD on 08/18/2024 7:47 AM Narrative 08/18/2024 7:47 AM EDT CLINICAL INDICATION: evaluate pleural effusion TECHNIQUE: XR CHEST 1 VIEW COMPARISON: 08/17/2024. FINDINGS: Hardware stable. Trace pleural effusions and bibasilar opacities. Mild vascular congestion. Interval development of small right apical pneumothorax. Procedure Note Macho Muir MD - 08/18/2024 CLINICAL INDICATION: evaluate pleural effusion TECHNIQUE: XR CHEST 1 VIEW COMPARISON: 08/17/2024. FINDINGS: Hardware stable. Trace pleural effusions and bibasilar opacities. Mildvascular congestion. Interval development of small right apicalpneumothorax. IMPRESSION: Interval development of small right apical pneumothorax. CRITICAL RESULT: No. COMMUNICATION: Per this written report. Drafted by Macho Muir MD on 08/18/2024 7:47 AM Final report signed by Macho Muir MD on 08/18/2024 7:47 AM Boby Rouse PRECISION LATHE OPERATOR IMG XR PROCEDURES Final Res ult * (ABNORMAL) POCT glucose meter (08/18/2024 3:08 AM EDT) POCT Glucose 169(H) 74 - 99 mg/dL 08/18/2024 3:10 AM EDT [facility] Comment:Accuracy of [...] to the main labortory for testing. Comment 08/18/2024 3:10 AM EDT [facility] Application Analyst ID Veronica Kellogg 025 3:10 AM EDT [facility] Device ID [id number] 08/18/2024 3:10 AM EDT HEALTHCARE LAB Specimen Type POC Capillary 08/18/2024 3:10 AM EDT HEALTHCARE LAB Blood Capillary blood specimen / Unknown 08/18/2024 3:08 AM EDT 08/18/2024 3:10 AM EDT Kenneth James MD LAB POINT OF CARE TE ST DOCKED DEVICE UNSOLICITED RESULTS Final Result Performing Organization Address City/[facility] Co de Phone Number [facility] [address] [place] [address] * (ABNORMAL) POCT glucose meter (08/18/2024 1:52 AM EDT) POCT Glucose 168(H) 74 - 99 mg/dL 08/18/2024 1:54 AM EDT HEALTHCARE LAB Comment:Accuracy of a glucos e result obtained from a capillary whole blood specimen relies upon adequate, non-compromised capillary blood flow. If the capillary glucose result is not consistent with the patient's clinical signs and symptoms, glucose testing should be repeated with either an arterial or venous sample on the glucometer or sent to the main labortory for testing. Comment 08/18/2024 1:54 AM EDT HEALTHCARE LAB Application Analyst ID Becca Mittal 1:54 AM EDT HEALTHCARE LAB Device ID [id number] 08/18/2024 1:54 AM EDT [facility] Specimen Type POC Capillary 08/18/2024 1:54 AM EDT [facility] Blood Capillary blood specimen / Unknown 08/18/2024 1:52 AM EDT 08/18/2024 1:54 AM EDT us Kenneth James MD LAB POINT OF CARE TE ST DOCKED DEVICE UNSOLICITED RESULTS Final Result Performing Organization Address City/[facility] Co de Phone Number HEALTHCARE LAB [address] [place] [address] * (ABNORMAL) Prothrombin Time/INR (08/18/2024 1:18 AM EDT) Prothrombin Time 16.8(H) 12.0 - 14.3 sec LAB COAGULATION METHOD 08/18/2024 2:05 AM EDT [facility] INR 1.4(H) 0.9 - 1.1 LAB COAGULATION METHOD 08/18/2024 2:05 AM EDT [facility] Blood Venous blood specimen / Unknown Venipuncture / Unknown 08/18/2024 1:18 AM EDT 08/18/2024 1:37 AM EDT Narrative [facility] - 08/18/2024 2:05 AM EDT OPTIMAL INR RANGES FOR PATIENT ON ORAL ANTICOAGULANT THERAPY Prevention of venous thromboembolism INR 2.0 to 3.0 In patients with heart disease: Atrial fibrillation INR 2.0 to 3.0 Valvular heart disease INR 2.0 to 3.0 Tissue heart valves INR 2.0 to 3.0 Mechanical prosthetic valves INR 2.5 to 3.5 Prevention of recurrent GA INR 2.5 to 3.5 Kenneth James MD LAB BLOOD ORDERABLES Final Res ult Performing Organization Address [facility]/ZIP Co de Phone Number [facility] [address] [place] [address] * Magnesium, Plasma (08/18/2024 1:18 AM EDT) Magnesium, Plasma 2.1 1.9 - 2.4 mg/dL 08/18/2024 2:07 AM EDT [facility] Blood Venous blood specimen / Unknown Venipuncture / Unknown 08/18/2024 1:18 AM EDT 08/18/2024 1:37 AM EDT Kenneth James MD LAB BLOOD ORDERABLES Final Res ult Performing Organization Address City/[facility]/ZIP Co de Phone Number [facility] [address] [place] [address] * (ABNORMAL) Basic Metabolic Panel, Plasma (08/18/2024 1:18 AM EDT) Glucose, Plasma 211(H) 74 - 99 mg/dL 08/18/2024 2:07 AM EDT [facility] BUN, Plasma 26(H) 8 - 23 mg/dL 08/18/2024 2:07 AM EDT [facility] Creatinine, Plasma 1.15(H) 0.60 - 1.10 mg/dL 08/18/2024 2:07 AM EDT [facility] BUN/Creatinine Ratio 23 08/18/2024 2:07 AM EDT [facility] Sodium, Plasma 132(L) 136 - 145 mmol/L 08/18/2024 2:07 AM EDT [facility] Potassium, Plasma 4.4 3.6 - 4.9 mmol/L 08/18/2024 2:07 AM EDT [facility] Chloride, Plasma 90(L) 97 - 107 mmol/L 08/18/2024 2:07 AM EDT [facility] CO2, Plasma 30(H) 22 - 29 mmol/L 08/18/2024 2:07 AM EDT [facility] Anion Gap 12 6 - 16 mmol/L 08/18/2024 2:07 AM EDT [facility] Total Calcium, Plasma 8.8(L) 8.9 - 10.2 mg/dL 08/18/2024 2:07 AM EDT [facility] eGFRcr 50.4 mL/min/1.7 3m*2 08/18/2024 2:07 AM EDT [facility] Comment:Reported eGFRcr in m L/min/1.73m2 is based the CKD-EPI 2020 equation that does not use a race coefficient. Blood Venous blood specimen / Unknown Venipuncture / Unknown 08/18/2024 1:18 AM EDT 08/18/2024 1:37 AM EDT us Kenneth James MD LAB BLOOD ORDERABLES Final Res ult [facility] [address] [place] [address] * (ABNORMAL) POCT glucose meter (08/18/2024 12:56 AM EDT) POCT Glucose 58(L) 74 - 99 mg/dL 08/18/2024 12:57 AM EDT [facility] Comment:Accuracy of a glucos e result obtained from a capillary whole blood specimen relies upon adequate, non-compromised capillary blood flow. If the capillary glucose result is not consistent with the patient's clinical signs and symptoms, glucose testing should be repeated with either an arterial or venous sample on the glucometer or sent to the main labortory for testing. Comment 08/18/2024 12:57 AM EDT HEALTHCARE LAB Application Analyst ID Veronica Kellogg 025 12:57 AM EDT HEALTHCARE LAB Device ID [id number] 08/18/2024 12:57 AM EDT HEALTHCARE LAB Specimen Type POC Capillary 08/18/2024 12:57 AM EDT HEALTHCARE LAB Blood Capillary blood specimen / Unknown 08/18/2024 12:56 AM EDT 08/18/2024 12:57 AM EDT Kenneth James MD LAB POINT OF CARE TE ST DOCKED DEVICE UNSOLICITED RESULTS Final Result Performing Organization Address City/[facility]/ZIP Co de Phone Number [facility] [address] [place] [address] * (ABNORMAL) POCT glucose meter (08/17/2024 8:34 PM EDT) [facility] POCT Glucose 344(H) 74 - 99 mg/dL 08/17/2024 8:35 PM EDT [facility] Comment:Accuracy of [...] to the main labortory for testing. Comment 08/17/2024 8:35 PM EDT HEALTHCARE LAB Application Analyst ID Veronica Kellogg 025 8:35 PM EDT HEALTHCARE LAB Device ID [id number] 08/17/2024 8:35 PM EDT HEALTHCARE LAB Specimen Type POC Capillary 08/17/2024 8:35 PM EDT HEALTHCARE LAB Blood Capillary blood specimen / Unknown 08/17/2024 8:34 PM EDT 08/17/2024 8:35 PM EDT us Kenneth James MD LAB POINT OF CARE TE ST DOCKED DEVICE UNSOLICITED RESULTS Final Result Performing Organization Address City/[facility]/ZIP Co de Phone Number [facility] [address] [place] [address] * (ABNORMAL) POCT glucose meter (08/17/2024 6:23 PM EDT) [facility] POCT Glucose 216(H) 74 - 99 mg/dL 08/17/2024 6:24 PM EDT [facility] Comment:Accuracy of [...] to the main labortory for testing. Comment 08/17/2024 6:24 PM EDT HEALTHCARE LAB Application Analyst ID Kimberly Hernadez 08/18/19 6:24 PM EDT HEALTHCARE LAB Device ID [id number] 08/17/2024 6:24 PM EDT HEALTHCARE LAB Specimen Type POC Capillary 08/17/2024 6:24 PM EDT HEALTHCARE LAB Blood Capillary blood specimen / Unknown 08/17/2024 6:23 PM EDT 08/17/2024 6:24 PM EDT Kenneth James MD LAB POINT OF CARE TE ST DOCKED DEVICE UNSOLICITED RESULTS Final Result Performing Organization Address City/State/[facility] Co de Phone Number HEALTHCARE LAB [address] [place] [address] * (ABNORMAL) POCT glucose meter (08/17/2024 4:28 PM EDT) [facility] POCT Glucose 149(H) 74 - 99 mg/dL 08/17/2024 4:39 PM EDT [facility] Comment:Accuracy of [...] to the main labortory for testing. Comment 08/17/2024 4:39 PM EDT [facility] Application Analyst ID Partha Zhu 08/18/19 4:39 PM EDT HEALTHCARE LAB Device ID [id number] 08/17/2024 4:39 PM EDT HEALTHCARE LAB Specimen Type POC Capillary 08/17/2024 4:39 PM EDT HEALTHCARE LAB Blood Capillary blood specimen / Unknown 08/17/2024 4:28 PM EDT 08/17/2024 4:39 PM EDT Kenneth James MD LAB POINT OF CARE TE ST DOCKED DEVICE UNSOLICITED RESULTS Final Result Performing Organization Address [facility] de Phone Number [facility] [address] [place] [address] * (ABNORMAL) POCT glucose meter (08/17/2024 11:43 AM EDT) [facility] POCT Glucose 415(H) 74 - 99 mg/dL 08/17/2024 11:50 AM EDT [facility] Comment:Accuracy of [...] to the main labortory for testing. Comment 08/17/2024 11:50 AM EDT [facility] Application Analyst ID Partha Zhu 08/18/19 11:50 AM EDT [facility] Device ID [id number] 08/17/2024 11:50 AM EDT [facility] Specimen Type POC Capillary 08/17/2024 11:50 AM EDT HEALTHCARE LAB Blood Capillary blood specimen / Unknown 08/17/2024 11:43 AM EDT 08/17/2024 11:50 AM EDT Kenneth James MD LAB POINT OF CARE TE ST DOCKED DEVICE UNSOLICITED RESULTS Final Result Performing Organization Address City/[facility] Co de Phone Number [facility] [address] [place] [address] * XR Chest 1 View (08/17/2024 11:26 AM EDT) Anatomical Region Laterality Modality Chest Digital Radiogra phy Impressions 08/17/2024 11:45 AM EDT Significant improved aeration status post pigtail catheter placement. No overt pneumothorax. CRITICAL RESULT: No. COMMUNICATION: Per this written report. Drafted by Macho Muir MD on 08/17/2024 11:44 AM Final report signed by Macho Muir MD on 08/17/2024 11:45 AM Narrative 08/17/2024 11:45 AM EDT CLINICAL INDICATION: if c/f pneumothorax after procedure TECHNIQUE: XR CHEST 1 VIEW COMPARISON: August 15, 2024. FINDINGS: Pigtail catheter within the right upper quadrant. Significant improved aeration within the right lung base with trace right-sided pleural effusion. No overt pneumothorax. Cardiac mediastinal silhouette is enlarged. Trace left effusion is again noted. Procedure Note Macho Muir MD - 08/17/2024 CLINICAL INDICATION: if c/f pneumothorax after procedure TECHNIQUE: XR CHEST 1 VIEW COMPARISON: August 15, 2024. FINDINGS: Pigtail catheter within the right upper quadrant. Significant improvedaeration within the right lung base with trace right-sided pleuraleffusion. No overt pneumothorax. Cardiac mediastinal silhouette isenlarged. Trace left effusion is again noted. IMPRESSION: Significant improved aeration status post pigtail catheter placement. Noovert pneumothorax. CRITICAL RESULT: No. COMMUNICATION: Per this written report. Drafted by Macho Muir MD on 08/17/2024 11:44 AM Final report signed by Macho Muir MD on 08/17/2024 11:45 AM Boby Rouse PRECISION LATHE OPERATOR IMG XR PROCEDURES Final Res ult * Body fluid, cytospin, pathologist interpretation (08/17/2024 10:58 AM EDT) Specimen Type Body Fluid LAB HEMATOLOGY METHOD 08/18/2024 1:12 PM EDT [facility] Specimen Source, Body Fluid Pleural, Right LAB HEMATOLOGY METHOD 08/18/2024 1:12 PM EDT [facility] Clinical Diagnosis, Body Fluid Pleural effusion LAB HEMATOLOGY METHOD 08/18/2024 1:12 PM EDT [facility] Interpretation , Body Fluid No evidence of malignancy; Predominantly chronic inflammatory cells, reactive mesothelial cells. Light blood A resident was involved in the service. I attest I examined the relevant preparations for the specimens and confirmed the diagnosis or interpretation. 08/18/2024 1:12 PM EDT [facility] Pathologist Signature, Body Fluid 08/18/2024 1:12 PM EDT [facility] Comment:Reviewed by: Spike Esteban MD LAB CP ASR DISCLAIMER Yes 08/18/2024 1:12 PM EDT [facility] Body Fluid Structure of right pleural cavity / Unknown Non-blood Collection / Unknown 08/17/2024 10:58 AM EDT 08/17/2024 11:11 AM EDT Boby Rouse APRN LAB BODY FLUIDS AND STOOLS ORDERABLES Final Result [facility] [address] [place] [address] * (ABNORMAL) Body Fluid Cell Count w/ Diff - Pleural Right (08/17/2024 10:58 AM EDT) Color, Body fluid [place] LAB HEMATOLOGY METHOD 08/17/2024 6:09 PM EDT [facility] Appearance, Body fluid Cloudy(A) LAB HEMATOLOGY METHOD 08/17/2024 6:09 PM EDT [facility] Volume, Body fluid 90.0 cc LAB HEMATOLOGY METHOD 08/17/2024 6:09 PM EDT [facility] Fluid Container Specimen received in miscellaneous container LAB HEMATOLOGY METHOD 08/17/2024 6:09 PM EDT [facility] Red Blood Cell Count, Body fluid 5,000 uL LAB HEMATOLOGY METHOD 08/17/2024 6:09 PM EDT [facility] Total Nucleated Cell Count, Body fluid 370 uL LAB HEMATOLOGY METHOD 08/17/2024 6:09 PM EDT [facility] Neutrophils %, Body fluid 17 % LAB HEMATOLOGY METHOD 08/17/2024 6:09 PM EDT [facility] Lymphocytes %, Body fluid 37 % LAB HEMATOLOGY METHOD 08/17/2024 6:09 PM EDT [facility] Monocytes/Macr ophages %, Body fluid 44 % LAB HEMATOLOGY METHOD 08/17/2024 6:09 PM EDT [facility] Eosinophils %, Body fluid 0 % LAB HEMATOLOGY METHOD 08/17/2024 6:09 PM EDT [facility] Lining/Mesothe lial Cells %, Body fluid 2 % LAB HEMATOLOGY METHOD 08/17/2024 6:09 PM EDT [facility] Neutrophils Absolute (PMN), Body fluid 63 uL LAB HEMATOLOGY METHOD 08/17/2024 6:09 PM EDT [facility] Lymphocytes Absolute, Body fluid 137 uL LAB HEMATOLOGY METHOD 08/17/2024 6:09 PM EDT [facility] Monocytes/Macr ophages Absolute, Body fluid 163 uL LAB HEMATOLOGY METHOD 08/17/2024 6:09 PM EDT [facility] Eosinophils Absolute, Body fluid 0 uL LAB HEMATOLOGY METHOD 08/17/2024 6:09 PM EDT [facility] Basophils Absolute, Body fluid 0 uL LAB HEMATOLOGY METHOD 08/17/2024 6:09 PM EDT [facility] Lining/Mesothe lial Cells Absolute, Body fluid 7 uL LAB HEMATOLOGY METHOD 08/17/2024 6:09 PM EDT [facility] Basophils %, Body fluid 0 % LAB HEMATOLOGY METHOD 08/17/2024 6:09 PM EDT [facility] Body Fluid Structure of right pleural cavity / Unknown Non-blood Collection / Unknown 08/17/2024 10:58 AM EDT 08/17/2024 11:11 AM EDT Boby Rouse APRN LAB BODY FLUIDS AND STOOLS ORDERABLES NO SPECIMEN TYPE/SOURCE Final Result [facility] [address] [place] [address] * Chylomicron Electrophoresis (Reflex Only) (08/17/2024 10:57 AM EDT) Chylomicron Electrophoresis Billed 08/25/2024 6:56 PM EDT [facility] ([facility]) Fluid Pleural fluid specimen / Unknown 08/17/2024 10:57 AM EDT 08/17/2024 11:10 AM EDT Narrative [facility] ([facility]) - 08/25/2024 6:56 PM EDT Performed By: [facility] [address] [place] [id number] Geologic Technician: Austin Bernal MD, PhD CLIA Number: [id number] Boby Rouse APRN LAB REF LAB BLOOD AND FLUID ORD Final Result [facility] ([facility]) [address] [place] [address] * Amylase, Pleural Fluid (08/17/2024 10:57 AM EDT) Amylase, Pleural Fluid 6 U/L 08/17/2024 1:23 PM EDT [facility] Pleural Fluid Structure of right pleural cavity / Unknown Non-blood Collection / Unknown 08/17/2024 10:57 AM EDT 08/17/2024 11:08 AM EDT Narrative [facility] - 08/17/2024 1:23 PM EDT Reference Values: No established reference interval. Interpret with caution. This test was developed and its performance characteristics determined by [facility]. The U.S. Food and Drug Administration has not approved or cleared this test; however, FDA clearance or approval is not currently required for clinical use. The results are not intended to be used as the sole means for clinical diagnosis or patient management decisions. Pleural Fluid: Elevated pleural fluid amylase is a level greater than the upper reference limit for serum and a magtg-ct-gkdrw amylase ratio greater than one. Note: Interpretive information was assimilated from a literature search (e.g., studies, guidelines, textbooks) related to body fluid testing. Information should be interpreted with caution because the literature sources cross many decades, analyzers and reagent formulations. All information should be viewed in the context of the patient's clinical presentation. Body fluid amylase should not be used as sole evidence of malignancy for diagnostic purposes and should be reviewed in correlation with cytology, plasma/serum results, and other clinical evidence. us Kenneth James MD LAB BODY FLUIDS AND STOOLS ORD ERABLES Final Result [facility] [address] [place] [address] * Cholesterol Fluid Battery (08/17/2024 10:57 AM EDT) CHOLESTEROL, FLUID 28 mg/dL 08/19/2024 1:48 PM EDT [facility] ([facility]) CHOLESTEROL FLUID SOURCE Pleural fluid 08/19/2024 1:48 PM EDT [facility] ([facility]) Pleural Fluid Structure of right pleural cavity / Unknown Non-blood Collection / Unknown 08/17/2024 10:57 AM EDT 08/17/2024 11:10 AM EDT Narrative [facility] ([facility]) - 08/19/2024 1:48 PM EDT INTERPRETIVE INFORMATION: Cholesterol, Body Fluid For information on body fluid reference ranges and/or interpretive guidance visit [email or web address] This test was developed and its performance characteristics determined by [facility]. It has not been cleared or approved by the US Food and Drug Administration. This test was performed in a CLIA certified laboratory and is intended for clinical purposes. Performed By: [facility] [address] [place] [address] Geologic Technician: Austin Bernal MD, PhD IA Number: [id number] Boby Rouse PRECISION LATHE OPERATOR LAB REF LAB BLOOD AND FLUID ORD Final Result [facility] ([facility]) [address] [place] [address] * Adenosine Deaminase,Pleural Fluid (08/17/2024 10:57 AM EDT) ADA, Pleural Fluid 5 0 - 30 U/L 08/19/2024 3:10 PM EDT [facility] Pleural Fluid Structure of right pleural cavity / Unknown Non-blood Collection / Unknown 08/17/2024 10:57 AM EDT 08/17/2024 11:10 AM EDT Narrative [facility]) - 08/19/2024 3:10 PM EDT INTERPRETIVE INFORMATION:Adenosine Deaminase, Pleural Fluid This test was developed and its performance characteristics determined by [facility]. It has not been cleared or approved by the US Food and Drug Administration. This test was performed in a CLIA certified laboratory and is intended for clinical purposes. Performed By: [facility] [address] [place] [address] Geologic Technician: Austin Bernal MD, PhD CLIA Number: [id number] Boby Rouse APRN LAB BODY FLUIDS AND STOOLS ORDERABLES Final Result [facility] ([facility]) [address] [place] [address] * (ABNORMAL) pH, pleural fluid (08/17/2024 10:57 AM EDT) pH, Pleural Fluid 7.49(L) 7.60 - 7.66 LAB HEMATOLOGY METHOD 08/17/2024 11:17 AM EDT [facility] Pleural Fluid Pleural fluid specimen / Unknown Non-blood Collection / Unknown 08/17/2024 10:57 AM EDT 08/17/2024 11:13 AM EDT Narrative [facility] - 08/17/2024 11:17 AM EDT Normal pleural fluid has a pH of 7.60-7.66 Transudate pleural fluid effusion has a pH of 7.45-7.55 Exudate pleural effusion has a pH of 7.30-7.40 In patients with a parapneumonic pleural effusion, pH <7.2 indicates advance disease and a need for tube drainage pH >7.2 indicates antibiotic therapy alone is probably sufficient In patients with a malignant pleural effusion, pH <7.3 indicates reduced survival, and is contraindiction for pleurodesis This test was developed, and its performance characteristics determined by the [facility]. Pleural pH is measured by potentiometry using a blood gas analyzer. it has not been approved by the US Food and Drug Administration. this test is used for clinical purposes and should not be regarded as investigational or for research. this laboratory is certified under the Clinical Laboratory Improvement Amendment of 1988 (CLIA-88) as qualified to perform high complexity clinical laboratory testing. Boby Rouse APRN LAB BODY FLUIDS AND STOOLS ORDERABLES Final Result [facility] [address] [place] [address] * AFB Culture and Acid Fast Stain - Pleural Right (08/17/2024 10:57 AM EDT) AFB Culture No Mycobacterial Growth at 6 Weeks 09/29/2024 5:06 PM EDT [facility] Acid Fast Stain No acid fast bacilli seen 09/29/2024 5:06 PM EDT [facility] Pleural Fluid Specimen from pleura obtained by thoracentesis / Unknown Non-blood Collection / Unknown 08/17/2024 10:57 AM EDT 08/17/2024 11:14 AM EDT Boby Roues APRN LAB MICROBIOLOGY - GENERAL ORDERABLES Final Result [facility] [address] [place] [address] * Triglycerides BF with RFLX to CHYLO (SO) (08/17/2024 10:57 AM EDT) Triglyceride, Fluid 27 mg/dL 08/25/2024 6:56 PM EDT [facility] ([facility]) Triglyceride Fluid Source Pleural fluid 08/25/2024 6:56 PM EDT [facility] ([facility]) Chylomicron Screen, Body Fluid Absent Absent 08/25/2024 6:56 PM EDT [facility] ([facility]) Fluid Pleural fluid specimen / Unknown 08/17/2024 10:57 AM EDT 08/17/2024 11:10 AM EDT Narrative [facility] ([facility]) - 08/25/2024 6:56 PM EDT INTERPRETIVE INFORMATION: Triglycerides, Fluid For information on body fluid reference ranges and/or interpretive guidance visit [email or web address] This test was developed and its performance characteristics determined by [facility]. It has not been cleared or approved by the US Food and Drug Administration. This test was performed in a CLIA certified laboratory and is intended for clinical purposes. Chylomicrons were not detected. This appears to be a nonchylous fluid. INTERPRETIVE INFORMATION: Chylomicron Screen, Body Fluid This test was developed and its performance characteristics determined by [facility]. It has not been cleared or approved by the U.S. Food and Drug Administration. This test was performed in a CLIA-certified laboratory and is intended for clinical purposes. Performed By: [facility] [address] [place] [address] Geologic Technician: Austin Bernal MD, PhD CLIA Number: [id number] Boby Rouse APRN LAB REF LAB BLOOD AND FLUID ORD Final Result [facility] ([facility]) [address] [place] [address] * Cytology - Pleural Right (08/17/2024 10:57 AM EDT) Case Report Cytology Case: [id number] Authorizing Provider: Boby Rouse APRN Collected: 08/17/2024 1057 Ordering Location: [facility] H Inpatient Received: 08/17/2024 1347 Pathologist: Jayme Duran MD Specimen: Pleural Fluid, Right, RIGHT PLEURAL FLUID 08/20/2024 2:29 PM EDT [facility] Final Diagnosis A. RIGHT PLEURAL FLUID - PREDOMINANTLY CHRONIC INFLAMMATION IN A BACKGROUND OF REACTIVE MESOTHELIAL CELLS AND HISTIOCYTES - NEGATIVE FOR MALIGNANCY 08/20/2024 2:29 PM EDT [facility] at 1429 EDT Clinical History Pleural effusion 08/20/2024 2:29 PM EDT [facility] Previous Cancer Primary Site Other/Unknown Primary Site 08/20/2024 2:29 PM EDT [facility] Gross Description A. RIGHT PLEURAL FLUID 100 ml's laurent fluid processed as thin prep and cell block Cold Time: 5h 02m 08/20/2024 2:29 PM EDT [facility] Fluid Structure of right pleural cavity / Unknown 08/17/2024 10:57 AM EDT 08/17/2024 1:47 PM EDT Boby Rouse PRECISION LATHE OPERATOR LAB CYTOLOGY ORDERABLES Fin al Result [facility] [address] [place] [address] * Glucose - Pleural Right (08/17/2024 10:57 AM EDT) Glucose, Fluid 309 mg/dL 08/17/2024 1:14 PM EDT [facility] Pleural Fluid Structure of right pleural cavity / Unknown Non-blood Collection / Unknown 08/17/2024 10:57 AM EDT 08/17/2024 11:08 AM EDT Narrative [facility] - 08/17/2024 1:14 PM EDT Pleural No established reference interval. Results [...] effusion, tuberculosis, malignancy, empyema, and/or rheumatoid disease. Boby Rouse APRN LAB BODY FLUIDS AND STOOLS ORDERABLES Final Result Performing Organization Address City/State/[facility] Co de Phone Number [facility] [address] [place] [address] * Albumin - Pleural Right (08/17/2024 10:57 AM EDT) Albumin, Pleural Fluid 1.8 g/dL 08/17/2024 1:14 PM EDT [facility] Pleural Fluid Structure of right pleural cavity / Unknown Non-blood Collection / Unknown 08/17/2024 10:57 AM EDT 08/17/2024 11:08 AM EDT Narrative [facility] - 08/17/2024 1:14 PM EDT REPORTING RESULTS Reference Values: No established reference interval. Results should be interpreted in comparison to the concentration in blood and in conjunction with the clinical context. This test was developed and its performance characteristics determined by [facility]. The U.S. Food and Drug Administration has not approved or cleared this test; however, FDA clearance or approval is not currently required for clinical use. The results are not intended to be used as the sole means for clinical diagnosis or patient management decisions. us Boby Rouse APRN LAB BODY FLUIDS AND STOOLS ORDERABLES Final Result [facility] [address] [place] [address] * Lactate Dehydrogenase, Pleural Fluid - Right (08/17/2024 10:57 AM EDT) LDH, Fluid 121 U/L 08/17/2024 1:14 PM EDT [facility] Pleural Fluid Structure of right pleural cavity / Unknown Non-blood Collection / Unknown 08/17/2024 10:57 AM EDT 08/17/2024 11:08 AM EDT Narrative [facility] - 08/17/2024 1:14 PM EDT No established reference interval. Results should be interpreted in comparison to the concentration in blood and in conjunction with the clinical context. Pleural fluid LDH and total protein measurements are used for differentiation of exudates and transudates. Light's criteria can be used to identify most pleural exudative effusions if one or more of the following criteria are present: (1) pleural zrhvj-ff-xuopn protein ratio of >0.5, (2) pleural utrea-sv-wwxby LDH ratio of >0.6, or (3) a pleural fluid LDH activity that is >2/3 the upper limit of a normal serum LDH activity. Light's criteria may misclassify ~25% of transudates as exudates in heart failure. These can be identified by calculating a uoyhj-wi-mtpotwu albumin gradient (>1.2 g/dL) and/or a rbopw-ui-qdkqn protein gradient (>3.1 g/dL). Boby Rouse APRN LAB BODY FLUIDS AND STOOLS ORDERABLES Final Result [facility] [address] [place] [address] * Total Protein, Pleural Fluid - Pleural Right (08/17/2024 10:57 AM EDT) Total Protein, Fluid 3.1 g/dL 08/17/2024 1:14 PM EDT [facility] Pleural Fluid Structure of right pleural cavity / Unknown Non-blood Collection / Unknown 08/17/2024 10:57 AM EDT 08/17/2024 11:08 AM EDT Narrative [facility] - 08/17/2024 1:14 PM EDT This test was developed and its performance characteristics determined by [facility]. The U.S. Food and Drug Administration has not approved or cleared this test. However, FDA clearance or approval is not currently required for clinical use. The results are not intended to be used as the sole means for clinical diagnosis or patient management decisions. Boby Rouse APRN LAB BODY FLUIDS AND STOOLS ORDERABLES Final Result Performing Organization Address [facility] Co de Phone Number [facility] [address] [place] [address] * Body Fluid Culture and Gram Stain - Pleural Right (08/17/2024 10:57 AM EDT) Culture No growth at day 4 2024 8:02 AM EDT [facility] Gram Stain Result Few Polymorphonuclear leukocytes 08/20/2024 8:02 AM EDT [facility] Gram Stain Result No organisms seen 08/20/2024 8:02 AM EDT [facility] Pleural Fluid Specimen from pleura obtained by thoracentesis / Unknown Non-blood Collection / Unknown 08/17/2024 10:57 AM EDT 08/17/2024 11:14 AM EDT Boby Rouse APRN LAB MICROBIOLOGY - GENERAL ORDERABLES Final Result Performing Organization Address [facility] de Phone Number [facility] [address] [place] [address] * (ABNORMAL) POCT glucose meter (08/17/2024 7:39 AM EDT) POCT Glucose 232(H) 74 - 99 mg/dL 08/17/2024 7:51 AM EDT [facility] Comment:Accuracy of a glucos e result obtained from a capillary whole blood specimen relies upon adequate, non-compromised capillary blood flow. If the capillary glucose result is not consistent with the patient's clinical signs and symptoms, glucose testing should be repeated with either an arterial or venous sample on the glucometer or sent to the main labortory for testing. Comment 08/17/2024 7:51 AM EDT [facility] Application Analyst ID Partha Zhu 08/18/19 7:51 AM EDT [facility] Device ID [id number] 08/17/2024 7:51 AM EDT [facility] Specimen Type POC Capillary 08/17/2024 7:51 AM EDT [facility] Blood Capillary blood specimen / Unknown 08/17/2024 7:39 AM EDT 08/17/2024 7:51 AM EDT Kenneth James MD LAB POINT OF CARE TE ST DOCKED DEVICE UNSOLICITED RESULTS Final Result Performing Organization Address [facility] de Phone Number [facility] [address] [place] [address] * (ABNORMAL) Prothrombin Time/INR (08/17/2024 4:28 AM EDT) Prothrombin Time 18.7(H) 12.0 - 14.3 sec LAB COAGULATION METHOD 08/17/2024 4:58 AM EDT [facility] INR 1.5(H) 0.9 - 1.1 LAB COAGULATION METHOD 08/17/2024 4:58 AM EDT [facility] Blood Venous blood specimen / Unknown Venipuncture / Unknown 08/17/2024 4:28 AM EDT 08/17/2024 4:42 AM EDT Narrative [facility] - 08/17/2024 4:58 AM EDT OPTIMAL INR RANGES FOR PATIENT ON ORAL ANTICOAGULANT THERAPY Prevention of venous thromboembolism INR 2.0 to 3.0 In patients with heart disease: Atrial fibrillation INR 2.0 to 3.0 Valvular heart disease INR 2.0 to 3.0 Tissue heart valves INR 2.0 to 3.0 Mechanical prosthetic valves INR 2.5 to 3.5 Prevention of recurrent GA INR 2.5 to 3.5 us Kenneth James MD LAB BLOOD ORDERABLES Final Res ult [facility] [address] [place] [address] * (ABNORMAL) CBC W/O Differential (08/17/2024 4:28 AM EDT) WBC Count 5.50 3.70 - 10.30 10*3/uL LAB HEMATOLOGY METHOD 08/17/2024 4:52 AM EDT [facility] RBC Count 3.46(L) 3.90 - 5.20 10*6/uL LAB HEMATOLOGY METHOD 08/17/2024 4:52 AM EDT [facility] HGB 10.1(L) 11.2 - 15.7 g/dL LAB HEMATOLOGY METHOD 08/17/2024 4:52 AM EDT [facility] HCT 32.2(L) 34.0 - 45.0 % LAB HEMATOLOGY METHOD 08/17/2024 4:52 AM EDT [facility] Platelet Count 396(H) 155 - 369 10*3/uL LAB HEMATOLOGY METHOD 08/17/2024 4:52 AM EDT [facility] MCV 93 79 - 98 fL LAB HEMATOLOGY METHOD 08/17/2024 4:52 AM EDT [facility] MCH 29.2 26.0 - 32.0 pg LAB HEMATOLOGY METHOD 08/17/2024 4:52 AM EDT [facility] MCHC 31.4 30.7 - 35.5 g/dL LAB HEMATOLOGY METHOD 08/17/2024 4:52 AM EDT [facility] RDW 14.2 11.5 - 14.5 % LAB HEMATOLOGY METHOD 08/17/2024 4:52 AM EDT [facility] MPV 9.3 8.8 - 12.5 fL LAB HEMATOLOGY METHOD 08/17/2024 4:52 AM EDT [facility] nRBC 0.0 <=0.0 per 100 WBCs LAB HEMATOLOGY METHOD 08/17/2024 4:52 AM EDT [facility] Blood Venous blood specimen / Unknown Venipuncture / Unknown 08/17/2024 4:28 AM EDT 08/17/2024 4:42 AM EDT us Doron Thayer MD LAB BLOOD ORDERABLES Final Resu lt [facility] [address] [place] [address] * (ABNORMAL) Magnesium (08/17/2024 4:28 AM EDT) Magnesium, Plasma 1.8(L) 1.9 - 2.4 mg/dL 08/17/2024 5:15 AM EDT [facility] Blood Venous blood specimen / Unknown Venipuncture / Unknown 08/17/2024 4:28 AM EDT 08/17/2024 4:42 AM EDT us Doron Thayer MD LAB BLOOD ORDERABLES Final Resu lt [facility] [address] [place] [address] * (ABNORMAL) Comprehensive metabolic panel (08/17/2024 4:28 AM EDT) Glucose, Plasma 216(H) 74 - 99 mg/dL 08/17/2024 5:15 AM EDT [facility] BUN, Plasma 22 8 - 23 mg/dL 08/17/2024 5:15 AM EDT [facility] Creatinine, Plasma 0.98 0.60 - 1.10 mg/dL 08/17/2024 5:15 AM EDT [facility] BUN/Creatinine Ratio 22 08/17/2024 5:15 AM EDT [facility] Sodium, Plasma 135(L) 136 - 145 mmol/L 08/17/2024 5:15 AM EDT [facility] Potassium, Plasma 3.4(L) 3.6 - 4.9 mmol/L 08/17/2024 5:15 AM EDT [facility] Chloride, Plasma 91(L) 97 - 107 mmol/L 08/17/2024 5:15 AM EDT [facility] CO2, Plasma 33(H) 22 - 29 mmol/L 08/17/2024 5:15 AM EDT [facility] Anion Gap 11 6 - 16 mmol/L 08/17/2024 5:15 AM EDT [facility] Total Calcium, Plasma 9.0 8.9 - 10.2 mg/dL 08/17/2024 5:15 AM EDT [facility] Total Protein 7.3 6.3 - 7.9 g/dL 08/17/2024 5:15 AM EDT [facility] Albumin, Plasma 3.3(L) 3.5 - 5.2 g/dL 08/17/2024 5:15 AM EDT [facility] AST, Plasma 29 10 - 35 U/L 08/17/2024 5:15 AM EDT [facility] ALT, Plasma 19 10 - 35 U/L 08/17/2024 5:15 AM EDT [facility] Alkaline Phosphatase, Plasma 100 46 - 142 U/L 08/17/2024 5:15 AM EDT [facility] Total Bilirubin, Plasma 0.4 0.2 - 1.1 mg/dL 08/17/2024 5:15 AM EDT [facility] eGFRcr 61.1 mL/min/1.7 3m*2 08/17/2024 5:15 AM EDT [facility] Comment:Reported eGFRcr in m L/min/1.73m2 is based the CKD-EPI 2020 equation that does not use a race coefficient. Blood Venous blood specimen / Unknown Venipuncture / Unknown 08/17/2024 4:28 AM EDT 08/17/2024 4:42 AM EDT us Doron Thayer MD LAB BLOOD ORDERABLES Final Resu lt Performing Organization Address City/[facility]/ZIP Co de Phone Number [facility] [address] [place] [address] * (ABNORMAL) Lactate dehydrogenase (08/17/2024 4:28 AM EDT) LDH, Plasma 322(H) 116 - 250 U/L 08/17/2024 5:15 AM EDT [facility] Blood Venous blood specimen / Unknown Venipuncture / Unknown 08/17/2024 4:28 AM EDT 08/17/2024 4:42 AM EDT us Boby Rouse APRN LAB BLOOD ORDERABLES Final Result Performing Organization Address City/[facility]/ZIP Co de Phone Number [facility] [address] [place] [address] * (ABNORMAL) POCT glucose meter (08/16/2024 8:03 PM EDT) [facility] POCT Glucose 356(H) 74 - 99 mg/dL 08/16/2024 8:05 PM EDT [facility] Comment:Accuracy of [...] to the main labortory for testing. Comment 08/16/2024 8:05 PM EDT [facility] Application Analyst ID Joe Del Real 08/16/2024 8:05 PM EDT [facility] Device ID [id number] 08/16/2024 8:05 PM EDT [facility] Specimen Type POC Capillary 08/16/2024 8:05 PM EDT [facility] Blood Capillary blood specimen / Unknown 08/16/2024 8:03 PM EDT 08/16/2024 8:05 PM EDT Doron Thayer MD LAB POINT OF CARE TE ST DOCKED DEVICE UNSOLICITED RESULTS Final Result [facility] [address] [place] [address] * (ABNORMAL) POCT glucose meter (08/16/2024 4:12 PM EDT) [facility] POCT Glucose 173(H) 74 - 99 mg/dL 08/16/2024 4:14 PM EDT [facility] Comment:Accuracy of [...] to the main labortory for testing. Comment 08/16/2024 4:14 PM EDT [facility] Application Analyst ID Paula Wright 4:14 PM EDT [facility] Device ID [id number] 08/16/2024 4:14 PM EDT [facility] Specimen Type POC Capillary 08/16/2024 4:14 PM EDT [facility] Blood Capillary blood specimen / Unknown 08/16/2024 4:12 PM EDT 08/16/2024 4:14 PM EDT Doron Thayer MD LAB POINT OF CARE TE ST DOCKED DEVICE UNSOLICITED RESULTS Final Result Performing Organization Address City/[facility]/ZIP Co de Phone Number [facility] [address] [place] [address] * (ABNORMAL) POCT glucose meter (08/16/2024 11:03 AM EDT) POCT Glucose 217(H) 74 - 99 mg/dL 08/16/2024 11:05 AM EDT [facility] Comment:Accuracy of [...] to the main labortory for testing. Comment 08/16/2024 11:05 AM EDT [facility] Application Analyst ID Alicia Licea 025 11:05 AM EDT [facility] Device ID [id number] 08/16/2024 11:05 AM EDT [facility] Specimen Type POC Capillary 08/16/2024 11:05 AM EDT [facility] Blood Capillary blood specimen / Unknown 08/16/2024 11:03 AM EDT 08/16/2024 11:05 AM EDT Doron Thayer MD LAB POINT OF CARE TE ST DOCKED DEVICE UNSOLICITED RESULTS Final Result [facility] [address] [place] [address] * (ABNORMAL) POCT glucose meter (08/16/2024 7:44 AM EDT) POCT Glucose 190(H) 74 - 99 mg/dL 08/16/2024 7:52 AM EDT [facility] Comment:Accuracy of [...] to the main labortory for testing. Comment 08/16/2024 7:52 AM EDT [facility] Application Analyst ID Paula Wright 7:52 AM EDT [facility] Device ID [id number] 08/16/2024 7:52 AM EDT [facility] Specimen Type POC Capillary 08/16/2024 7:52 AM EDT [facility] Blood Capillary blood specimen / Unknown 08/16/2024 7:44 AM EDT 08/16/2024 7:52 AM EDT us Doron Thayer MD LAB POINT OF CARE TE ST DOCKED DEVICE UNSOLICITED RESULTS Final Result Performing Organization Address City/State/[facility] Co id Phone Number [facility] [address] [place] [address] * (ABNORMAL) Prothrombin Time/INR (08/16/2024 1:46 AM EDT) [facility] Prothrombin Time 24.3(H) 12.0 - 14.3 sec 08/16/2024 2:01 AM EDT [facility] INR 2.2(H) 0.9 - 1.1 08/16/2024 2:01 AM EDT [facility] Blood Venous blood specimen / Unknown Venipuncture / Unknown 08/16/2024 1:46 AM EDT 08/16/2024 1:48 AM EDT Narrative [facility] - 08/16/2024 2:01 AM EDT OPTIMAL INR RANGES FOR PATIENT ON ORAL ANTICOAGULANT THERAPY Prevention of venous thromboembolism INR 2.0 to 3.0 In patients with heart disease: Atrial fibrillation INR 2.0 to 3.0 Valvular heart disease INR 2.0 to 3.0 Tissue heart valves INR 2.0 to 3.0 Mechanical prosthetic valves INR 2.5 to 3.5 Prevention of recurrent GA INR 2.5 to 3.5 us Kenneth James MD LAB BLOOD ORDERABLES Final Res ult [facility] [address] [place] [address] * (ABNORMAL) CBC W/O Differential (08/16/2024 1:46 AM EDT) WBC Count 6.57 3.70 - 10.30 10*3/uL LAB HEMATOLOGY METHOD 08/16/2024 1:50 AM EDT [facility] RBC Count 3.22(L) 3.90 - 5.20 10*6/uL LAB HEMATOLOGY METHOD 08/16/2024 1:50 AM EDT [facility] HGB 9.6(L) 11.2 - 15.7 g/dL LAB HEMATOLOGY METHOD 08/16/2024 1:50 AM EDT [facility] HCT 29.6(L) 34.0 - 45.0 % LAB HEMATOLOGY METHOD 08/16/2024 1:50 AM EDT [facility] Platelet Count 376(H) 155 - 369 10*3/uL LAB HEMATOLOGY METHOD 08/16/2024 1:50 AM EDT [facility] MCV 92 79 - 98 fL LAB HEMATOLOGY METHOD 08/16/2024 1:50 AM EDT [facility] MCH 29.8 26.0 - 32.0 pg LAB HEMATOLOGY METHOD 08/16/2024 1:50 AM EDT [facility] MCHC 32.4 30.7 - 35.5 g/dL LAB HEMATOLOGY METHOD 08/16/2024 1:50 AM EDT [facility] RDW 14.3 11.5 - 14.5 % LAB HEMATOLOGY METHOD 08/16/2024 1:50 AM EDT [facility] MPV 9.3 8.8 - 12.5 fL LAB HEMATOLOGY METHOD 08/16/2024 1:50 AM EDT [facility] nRBC 0.0 <=0.0 per 100 WBCs LAB HEMATOLOGY METHOD 08/16/2024 1:50 AM EDT [facility] Blood Venous blood specimen / Unknown Venipuncture / Unknown 08/16/2024 1:46 AM EDT 08/16/2024 1:48 AM EDT us Doron Thayer MD LAB BLOOD ORDERABLES Final Resu lt Performing Organization Address City/[facility]/ZIP Co de Phone Number [facility] [address] [place] [address] * (ABNORMAL) Magnesium (08/16/2024 1:46 AM EDT) Magnesium, Plasma 1.5(L) 1.9 - 2.4 mg/dL 08/16/2024 2:28 AM EDT [facility] Blood Venous blood specimen / Unknown Venipuncture / Unknown 08/16/2024 1:46 AM EDT 08/16/2024 1:57 AM EDT Doron Thayer MD LAB BLOOD ORDERABLES Final Resu lt Performing Organization Address [facility] Co de Phone Number [facility] [address] [place] [address] * (ABNORMAL) Basic metabolic panel (08/16/2024 1:46 AM EDT) Glucose, Plasma 271(H) 74 - 99 mg/dL 08/16/2024 2:28 AM EDT [facility] BUN, Plasma 19 8 - 23 mg/dL 08/16/2024 2:28 AM EDT [facility] Creatinine, Plasma 0.82 0.60 - 1.10 mg/dL 08/16/2024 2:28 AM EDT [facility] BUN/Creatinine Ratio 23 08/16/2024 2:28 AM EDT [facility] Sodium, Plasma 132(L) 136 - 145 mmol/L 08/16/2024 2:28 AM EDT [facility] Potassium, Plasma 4.0 3.6 - 4.9 mmol/L 08/16/2024 2:28 AM EDT [facility] Chloride, Plasma 96(L) 97 - 107 mmol/L 08/16/2024 2:28 AM EDT [facility] CO2, Plasma 27 22 - 29 mmol/L 08/16/2024 2:28 AM EDT [facility] Anion Gap 9 6 - 16 mmol/L 08/16/2024 2:28 AM EDT [facility] Total Calcium, Plasma 8.5(L) 8.9 - 10.2 mg/dL 08/16/2024 2:28 AM EDT [facility] eGFRcr 75.6 mL/min/1.7 3m*2 08/16/2024 2:28 AM EDT [facility] Comment:Reported eGFRcr in m L/min/1.73m2 is based the CKD-EPI 2020 equation that does not use a race coefficient. Blood Venous blood specimen / Unknown Venipuncture / Unknown 08/16/2024 1:46 AM EDT 08/16/2024 1:57 AM EDT us Doron Thayer MD LAB BLOOD ORDERABLES Final Resu lt [facility] [address] [place] [address] * (ABNORMAL) POCT glucose meter (08/15/2024 9:37 PM EDT) POCT Glucose 235(H) 74 - 99 mg/dL 08/15/2024 9:38 PM EDT [facility] Comment:Accuracy of a glucos e result obtained from a capillary whole blood specimen relies upon adequate, non-compromised capillary blood flow. If the capillary glucose result is not consistent with the patient's clinical signs and symptoms, glucose testing should be repeated with either an arterial or venous sample on the glucometer or sent to the main labortory for testing. Comment 08/15/2024 9:38 PM EDT [facility] Application Analyst ID Laura Cope 08/15/2024 9:38 PM EDT [facility] LAB Device ID [id number] 08/15/2024 9:38 PM EDT [facility] Specimen Type POC Capillary 08/15/2024 9:38 PM EDT [facility] Blood Capillary blood specimen / Unknown 08/15/2024 9:37 PM EDT 08/15/2024 9:38 PM EDT us Doron Thayer MD LAB POINT OF CARE TE ST DOCKED DEVICE UNSOLICITED RESULTS Final Result [facility] [address] [place] [address] * (ABNORMAL) POCT glucose meter (08/15/2024 6:03 PM EDT) [facility] POCT Glucose 184(H) 74 - 99 mg/dL 08/15/2024 6:06 PM EDT [facility] Comment:Accuracy of [...] to the main labortory for testing. Comment 08/15/2024 6:06 PM EDT [facility] Application Analyst ID Hoda Skinner 025 6:06 PM EDT [facility] Device ID [id number] 08/15/2024 6:06 PM EDT [facility] Specimen Type POC Capillary 08/15/2024 6:06 PM EDT [facility] Blood Capillary blood specimen / Unknown 08/15/2024 6:03 PM EDT 08/15/2024 6:06 PM EDT Arben Ibarra MD LAB POINT OF CARE TE ST DOCKED DEVICE UNSOLICITED RESULTS Final Result Performing Organization Address [facility] Co de Phone Number [facility] [address] [place] [address] * (ABNORMAL) POCT glucose meter (08/15/2024 4:20 PM EDT) [facility] POCT Glucose 204(H) 74 - 99 mg/dL 08/15/2024 4:26 PM EDT [facility] Comment:Accuracy of [...] to the main labortory for testing. Comment 08/15/2024 4:26 PM EDT [facility] Application Analyst ID uSsanne Hoda 025 4:26 PM EDT [facility] Device ID [id number] 08/15/2024 4:26 PM EDT [facility] Specimen Type POC Capillary 08/15/2024 4:26 PM EDT [facility] Blood Capillary blood specimen / Unknown 08/15/2024 4:20 PM EDT 08/15/2024 4:26 PM EDT Arben Ibarra MD LAB POINT OF CARE TE ST DOCKED DEVICE UNSOLICITED RESULTS Final Result Performing Organization Address City/[facility] Co de Phone Number [facility] [address] [place] [address] * (ABNORMAL) POCT glucose meter (08/15/2024 1:00 PM EDT) [facility] POCT Glucose 134(H) 74 - 99 mg/dL 08/15/2024 1:02 PM EDT [facility] Comment:Accuracy of [...] to the main labortory for testing. Comment 08/15/2024 1:02 PM EDT [facility] Application Analyst ID Hoda Skinner 025 1:02 PM EDT [facility] Device ID [id number] 08/15/2024 1:02 PM EDT [facility] Specimen Type POC Capillary 08/15/2024 1:02 PM EDT [facility] Blood Capillary blood specimen / Unknown 08/15/2024 1:00 PM EDT 08/15/2024 1:02 PM EDT Arben Ibarra MD LAB POINT OF CARE TE ST DOCKED DEVICE UNSOLICITED RESULTS Final Result Performing Organization Address City/[facility] Co de Phone Number [facility] [address] [place] [address] * (ABNORMAL) POCT glucose meter (08/15/2024 12:14 PM EDT) [facility] POCT Glucose 123(H) 74 - 99 mg/dL 08/15/2024 12:20 PM EDT [facility] Comment:Accuracy of [...] to the main labortory for testing. Comment 08/15/2024 12:20 PM EDT [facility] Application Analyst ID Hoda Skinner 025 12:20 PM EDT [facility] LAB Device ID [id number] 08/15/2024 12:20 PM EDT [facility] Specimen Type POC Capillary 08/15/2024 12:20 PM EDT [facility] Blood Capillary blood specimen / Unknown 08/15/2024 12:14 PM EDT 08/15/2024 12:20 PM EDT Arben Ibarra MD LAB POINT OF CARE TE ST DOCKED DEVICE UNSOLICITED RESULTS Final Result Performing Organization Address City/State/[facility] Co de Phone Number [facility] [address] [place] [address] * XR Chest 1 View (08/15/2024 9:22 AM EDT) Anatomical Region Laterality Modality Chest Digital Radiogra phy Impressions 08/15/2024 10:56 AM EDT Stable bilateral pleural effusions. CRITICAL RESULT: No. COMMUNICATION: Per this written report. Drafted by Cesar Garcia MD on 08/15/2024 10:55 AM Final report signed by Cesar Garcia MD on 08/15/2024 10:56 AM Narrative 08/15/2024 10:56 AM EDT CLINICAL INDICATION: shortness of breath, pleural effusion TECHNIQUE: Single AP view of chest. COMPARISON: One day prior FINDINGS: Stable support hardware. The cardiomediastinal contours are unchanged. No pneumothorax. Stable bilateral right greater than left pleural effusions similar to prior. Bibasal lung opacities which may represent atelectasis. No new lung consolidation. Procedure Note Cesar Garcia MD - 08/15/2024 CLINICAL INDICATION: shortness of breath, pleural effusion TECHNIQUE: Single AP view of chest. COMPARISON: One day prior FINDINGS: Stable support hardware. The cardiomediastinal contours are unchanged. Nopneumothorax. Stable bilateral right greater than left pleural effusionssimilar to prior. Bibasal lung opacities which may represent atelectasis.No new lung consolidation. IMPRESSION: Stable bilateral pleural effusions. CRITICAL RESULT: No. COMMUNICATION: Per this written report. Drafted by Cesar Garcia MD on 08/15/2024 10:55 AM Final report signed by Cesar Garcia MD on 08/15/2024 10:56 AM Arben Ibarra MD IMG XR PROCEDURES Final Resul t * ECG Adult (08/15/2024 8:51 AM EDT) EKG DIAGNOSIS CLASS Abnormal MUSE ECG Ventricular Rate 60 BPM MUSE ECG Atrial Rate 55 BPM MUSE ECG QRSD Interval 188 ms MUSE ECG QT Interval 546 ms MUSE ECG QTC Interval 546 ms MUSE ECG R [place] -70 degrees MUSE ECG T Wave [place] 119 degrees MUSE ECG Diagnosis Ventricular-pa amber rhythm MUSE ECG Diagnosis Abnormal ECG MUSE ECG Diagnosis MUSE ECG Diagnosis Compared to last ECG MUSE ECG Diagnosis No significant change was found MUSE ECG Diagnosis Confirmed by Cristian Irwin ([id number]) on 08/15/2024 10:42:20 AM MUSE ECG 08/15/2024 8:51 AM EDT 08/15/2024 10:42 AM EDT Arben Ibarra MD ECG ORDERABLES Final Result MUSE ECG * (ABNORMAL) POCT glucose meter (08/15/2024 7:52 AM EDT) POCT Glucose 175(H) 74 - 99 mg/dL 08/15/2024 7:56 AM EDT [facility] Comment:Accuracy of a glucos e result obtained from a capillary whole blood specimen relies upon adequate, non-compromised capillary blood flow. If the capillary glucose result is not consistent with the patient's clinical signs and symptoms, glucose testing should be repeated with either an arterial or venous sample on the glucometer or sent to the main labortory for testing. Comment 08/15/2024 7:56 AM EDT [facility] Application Analyst ID Hoda Skinner 025 7:56 AM EDT [facility] Device ID [id number] 08/15/2024 7:56 AM EDT [facility] Specimen Type POC Capillary 08/15/2024 7:56 AM EDT [facility] Blood Capillary blood specimen / Unknown 08/15/2024 7:52 AM EDT 08/15/2024 7:56 AM EDT Arben Ibarra MD LAB POINT OF CARE TE ST DOCKED DEVICE UNSOLICITED RESULTS Final Result Performing Organization Address City/[facility] Co de Phone Number [facility] [address] [place] [address] * (ABNORMAL) POCT glucose meter (08/15/2024 6:27 AM EDT) POCT Glucose 125(H) 74 - 99 mg/dL 08/15/2024 6:29 AM EDT [facility] Comment:Accuracy of [...] to the main labortory for testing. Comment 08/15/2024 6:29 AM EDT [facility] Application Analyst ID Manuel Tabares 08/15/2024 6:29 AM EDT [facility] Device ID [id number] 08/15/2024 6:29 AM EDT [facility] Specimen Type POC Capillary 08/15/2024 6:29 AM EDT [facility] Blood Capillary blood specimen / Unknown 08/15/2024 6:27 AM EDT 08/15/2024 6:29 AM EDT us Arben Ibarra MD LAB POINT OF CARE TE ST DOCKED DEVICE UNSOLICITED RESULTS Final Result Performing Organization Address City/[facility]/ZIP Co de Phone Number [facility] [address] [place] [address] * POCT glucose meter (08/15/2024 6:07 AM EDT) [facility] POCT Glucose 95 74 - 99 mg/dL 08/15/2024 6:08 AM EDT [facility] Comment:Accuracy of a glucos e result obtained from a capillary whole blood specimen relies upon adequate, non-compromised capillary blood flow. If the capillary glucose result is not consistent with the patient's clinical signs and symptoms, glucose testing should be repeated with either an arterial or venous sample on the glucometer or sent to the main labortory for testing. Comment 08/15/2024 6:08 AM EDT [facility] Application Analyst ID Manuel Tabares 08/15/2024 6:08 AM EDT [facility] Device ID [id number] 08/15/2024 6:08 AM EDT [facility] Specimen Type POC Capillary 08/15/2024 6:08 AM EDT [facility] Blood Capillary blood specimen / Unknown 08/15/2024 6:07 AM EDT 08/15/2024 6:08 AM EDT Arben Ibarra MD LAB POINT OF CARE TE ST DOCKED DEVICE UNSOLICITED RESULTS Final Result Performing Organization Address City/State/[facility] Co de Phone Number [facility] [address] [place] [address] * (ABNORMAL) POCT glucose meter (08/15/2024 5:46 AM EDT) [facility] POCT Glucose 48(LL) 74 - 99 mg/dL 08/15/2024 5:48 AM EDT [facility] Comment:Accuracy of a glucos e result obtained from a capillary whole blood specimen relies upon adequate, non-compromised capillary blood flow. If the capillary glucose result is not consistent with the patient's clinical signs and symptoms, glucose testing should be repeated with either an arterial or venous sample on the glucometer or sent to the main labortory for testing. Comment 08/15/2024 5:48 AM EDT [facility] Application Analyst ID Manuel Tabares 08/15/2024 5:48 AM EDT [facility] Device ID [id number] 08/15/2024 5:48 AM EDT [facility] Specimen Type POC Capillary 08/15/2024 5:48 AM EDT [facility] Blood Capillary blood specimen / Unknown 08/15/2024 5:46 AM EDT 08/15/2024 5:48 AM EDT Arben Ibarra MD LAB POINT OF CARE TE ST DOCKED DEVICE UNSOLICITED RESULTS Final Result [facility] [address] [place] [address] * (ABNORMAL) POCT glucose meter (08/15/2024 5:25 AM EDT) POCT Glucose 61(L) 74 - 99 mg/dL 08/15/2024 5:26 AM EDT [facility] Comment:Accuracy of a glucos e result obtained from a capillary whole blood specimen relies upon adequate, non-compromised capillary blood flow. If the capillary glucose result is not consistent with the patient's clinical signs and symptoms, glucose testing should be repeated with either an arterial or venous sample on the glucometer or sent to the main labortory for testing. Comment 08/15/2024 5:26 AM EDT [facility] Application Analyst ID Manuel Tabares 08/15/2024 5:26 AM EDT [facility] Device ID [id number] 08/15/2024 5:26 AM EDT [facility] Specimen Type POC Capillary 08/15/2024 5:26 AM EDT [facility] Blood Capillary blood specimen / Unknown 08/15/2024 5:25 AM EDT 08/15/2024 5:26 AM EDT Arben Ibarra MD LAB POINT OF CARE TE ST DOCKED DEVICE UNSOLICITED RESULTS Final Result [facility] [address] [place] [address] * (ABNORMAL) Blood gas panel, arterial (08/15/2024 5:01 AM EDT) pH, Arterial 7.46(H) 7.31 - 7.42 LAB HEMATOLOGY METHOD 08/15/2024 5:14 AM EDT [facility] pCO2, Arterial 46 35 - 48 mmHg LAB HEMATOLOGY METHOD 08/15/2024 5:14 AM EDT [facility] pO2, Arterial 70(L) >70 mmHg LAB HEMATOLOGY METHOD 08/15/2024 5:14 AM EDT [facility] SO2, Measured, Arterial 95 94 - 98 % LAB HEMATOLOGY METHOD 08/15/2024 5:14 AM EDT [facility] Base Excess, Arterial 7.4(H) -2.0 - 3.0 mmol/L LAB HEMATOLOGY METHOD 08/15/2024 5:14 AM EDT [facility] Bicarbonate, Calculated, Arterial 32(H) 22 - 26 mmol/L LAB HEMATOLOGY METHOD 08/15/2024 5:14 AM EDT [facility] Hematocrit, Whole Blood 30.3(L) 34.0 - 45.0 % LAB HEMATOLOGY METHOD 08/15/2024 5:14 AM EDT [facility] Sodium, Whole Blood 137 136 - 145 mmol/L LAB HEMATOLOGY METHOD 08/15/2024 5:14 AM EDT [facility] Potassium, Whole Blood 3.0(L) 3.6 - 4.9 mmol/L LAB HEMATOLOGY METHOD 08/15/2024 5:14 AM EDT [facility] Chloride, Whole Blood 96(L) 97 - 107 mmol/L LAB HEMATOLOGY METHOD 08/15/2024 5:14 AM EDT [facility] Glucose, Whole Blood 75 74 - 99 mg/dL LAB HEMATOLOGY METHOD 08/15/2024 5:14 AM EDT [facility] Ionized Calcium, Whole Blood 4.6 4.6 - 5.1 mg/dL LAB HEMATOLOGY METHOD 08/15/2024 5:14 AM EDT [facility] Lactate, Arterial, Whole Blood 0.7 0.5 - 1.6 mmol/L LAB HEMATOLOGY METHOD 08/15/2024 5:14 AM EDT [facility] Blood Arterial blood specimen / Unknown Arterial Puncture / Unknown 08/15/2024 5:01 AM EDT 08/15/2024 5:13 AM EDT us July Vargas MD LAB BLOOD ORDERABLES Final R esult [facility] [address] [place] [address] * (ABNORMAL) Prothrombin Time/INR (08/15/2024 4:52 AM EDT) Prothrombin Time 24.4(H) 12.0 - 14.3 sec 08/15/2024 5:08 AM EDT [facility] INR 2.2(H) 0.9 - 1.1 08/15/2024 5:08 AM EDT [facility] Blood Venous blood specimen / Unknown Venipuncture / Unknown 08/15/2024 4:52 AM EDT 08/15/2024 4:55 AM EDT Narrative [facility] - 08/15/2024 5:08 AM EDT OPTIMAL INR RANGES FOR PATIENT ON ORAL ANTICOAGULANT THERAPY Prevention of venous thromboembolism INR 2.0 to 3.0 In patients with heart disease: Atrial fibrillation INR 2.0 to 3.0 Valvular heart disease INR 2.0 to 3.0 Tissue heart valves INR 2.0 to 3.0 Mechanical prosthetic valves INR 2.5 to 3.5 Prevention of recurrent GA INR 2.5 to 3.5 us Kenneth James MD LAB BLOOD ORDERABLES Final Res ult [address] [address] * Vitamin D 25 Hydroxy (08/15/2024 4:52 AM EDT) Vitamin D 25 Hydroxy 51.5 20.0 - 80.0 ng/mL 08/15/2024 6:37 AM EDT [facility] Blood Venous blood specimen / Unknown Venipuncture / Unknown 08/15/2024 4:52 AM EDT 08/15/2024 4:59 AM EDT [facility] - 08/15/2024 6:37 AM EDT Testing performed on Blank [employer]ing [employer] Bal[employer], standardized against NIST SRM 2972. When testing samples from patients whose predominant form of vitamin D is vitamin D2, such as patients receiving vitamin D2 supplementation, results that are subtherapeutic should be confirmed with another method, such as LC-MS/MS, before being used for patient management. Vitamin D, 25-Hydroxy reference range, age 18 years and up: Deficiency: <12 ng/mL Insufficiency: 12 to 19 ng/mL Sufficiency: 20 to 80 ng/mL Possible toxicity: >100 ng/mL Arben Ibarra MD LAB BLOOD ORDERABLES Final Re sult Performing Organization Address [facility]/[place] [address] * (ABNORMAL) N-Terminal Probnp, Plasma (08/15/2024 4:52 AM EDT) N-Terminal, PROBNP, Plasma 6,053(H) 0 - 899 pg/mL 08/15/2024 5:32 AM EDT [facility] Blood Venous blood specimen / Unknown Venipuncture / Unknown 08/15/2024 4:52 AM EDT 08/15/2024 4:59 AM EDT Arben Ibarra MD LAB BLOOD ORDERABLES Final Re sult Performing Organization Address [facility]/[place] [address] * Phosphorus (08/15/2024 4:52 AM EDT) Phosphorus, Plasma 3.2 2.5 - 4.5 mg/dL 08/15/2024 5:32 AM EDT [facility] Blood Venous blood specimen / Unknown Venipuncture / Unknown 08/15/2024 4:52 AM EDT 08/15/2024 4:59 AM EDT Arben Ibarra MD LAB BLOOD ORDERABLES Final Re sult Performing Organization Address City/[facility]/[place] [address] * Magnesium (08/15/2024 4:52 AM EDT) Magnesium, Plasma 1.9 1.9 - 2.4 mg/dL 08/15/2024 5:32 AM EDT [facility] Blood Venous blood specimen / Unknown Venipuncture / Unknown 08/15/2024 4:52 AM EDT 08/15/2024 4:59 AM EDT us Arben Ibarra MD LAB BLOOD ORDERABLES Final Re sult [facility] [address] [place] [address] * (ABNORMAL) Basic metabolic panel (08/15/2024 4:52 AM EDT) Glucose, Plasma 75 74 - 99 mg/dL 08/15/2024 5:32 AM EDT [facility] BUN, Plasma 19 8 - 23 mg/dL 08/15/2024 5:32 AM EDT [facility] Creatinine, Plasma 0.96 0.60 - 1.10 mg/dL 08/15/2024 5:32 AM EDT [facility] BUN/Creatinine Ratio 20 08/15/2024 5:32 AM EDT [facility] Sodium, Plasma 136 136 - 145 mmol/L 08/15/2024 5:32 AM EDT [facility] Potassium, Plasma 3.1(L) 3.6 - 4.9 mmol/L 08/15/2024 5:32 AM EDT [facility] Chloride, Plasma 94(L) 97 - 107 mmol/L 08/15/2024 5:32 AM EDT [facility] CO2, Plasma 30(H) 22 - 29 mmol/L 08/15/2024 5:32 AM EDT [facility] Anion Gap 12 6 - 16 mmol/L 08/15/2024 5:32 AM EDT [facility] Total Calcium, Plasma 9.3 8.9 - 10.2 mg/dL 08/15/2024 5:32 AM EDT [facility] eGFRcr 62.6 mL/min/1.7 3m*2 08/15/2024 5:32 AM EDT [facility] Comment:Reported eGFRcr in m L/min/1.73m2 is based the CKD-EPI 2020 equation that does not use a race coefficient. Blood Venous blood specimen / Unknown Venipuncture / Unknown 08/15/2024 4:52 AM EDT 08/15/2024 4:59 AM EDT us Arben Ibarra MD LAB BLOOD ORDERABLES Final Re sult [facility] [address] [place] [address] * (ABNORMAL) CBC W/O Differential (08/15/2024 4:52 AM EDT) WBC Count 6.49 3.70 - 10.30 10*3/uL LAB HEMATOLOGY METHOD 08/15/2024 4:57 AM EDT [facility] RBC Count 3.39(L) 3.90 - 5.20 10*6/uL LAB HEMATOLOGY METHOD 08/15/2024 4:57 AM EDT [facility] HGB 10.2(L) 11.2 - 15.7 g/dL LAB HEMATOLOGY METHOD 08/15/2024 4:57 AM EDT [facility] HCT 31.2(L) 34.0 - 45.0 % LAB HEMATOLOGY METHOD 08/15/2024 4:57 AM EDT [facility] Platelet Count 419(H) 155 - 369 10*3/uL LAB HEMATOLOGY METHOD 08/15/2024 4:57 AM EDT [facility] MCV 92 79 - 98 fL LAB HEMATOLOGY METHOD 08/15/2024 4:57 AM EDT [facility] MCH 30.1 26.0 - 32.0 pg LAB HEMATOLOGY METHOD 08/15/2024 4:57 AM EDT [facility] MCHC 32.7 30.7 - 35.5 g/dL LAB HEMATOLOGY METHOD 08/15/2024 4:57 AM EDT [facility] RDW 14.3 11.5 - 14.5 % LAB HEMATOLOGY METHOD 08/15/2024 4:57 AM EDT [facility] MPV 9.1 8.8 - 12.5 fL LAB HEMATOLOGY METHOD 08/15/2024 4:57 AM EDT [facility] nRBC 0.0 <=0.0 per 100 WBCs LAB HEMATOLOGY METHOD 08/15/2024 4:57 AM EDT [facility] Blood Venous blood specimen / Unknown Venipuncture / Unknown 08/15/2024 4:52 AM EDT 08/15/2024 4:55 AM EDT Arben Ibarra MD LAB BLOOD ORDERABLES Final Re sult Performing Organization Address City/[facility]/ZIP Co de Phone Number [facility] [address] [place] [address] * (ABNORMAL) POCT glucose meter (08/14/2024 8:54 PM EDT) POCT Glucose 206(H) 74 - 99 mg/dL 08/14/2024 8:56 PM EDT [facility] Comment:Accuracy of [...] to the main labortory for testing. Comment 08/14/2024 8:56 PM EDT [facility] Application Analyst ID [email or web address] Manuel 08/14/2024 8:56 PM EDT [facility] Device ID [id number] 08/14/2024 8:56 PM EDT [facility] Specimen Type POC Capillary 08/14/2024 8:56 PM EDT [facility] Blood Capillary blood specimen / Unknown 08/14/2024 8:54 PM EDT 08/14/2024 8:56 PM EDT Arben Ibarra MD LAB POINT OF CARE TE ST DOCKED DEVICE UNSOLICITED RESULTS Final Result [facility] [address] [place] [address] * (ABNORMAL) POCT glucose meter (08/14/2024 6:43 PM EDT) POCT Glucose 218(H) 74 - 99 mg/dL 08/14/2024 6:45 PM EDT [facility] Comment:Accuracy of [...] to the main labortory for testing. Comment 08/14/2024 6:45 PM EDT [facility] Application Analyst ID Renee Barrett [id number] 6:45 PM EDT [facility] Device ID [id number] 08/14/2024 6:45 PM EDT [facility] Specimen Type POC Capillary 08/14/2024 6:45 PM EDT [facility] Blood Capillary blood specimen / Unknown 08/14/2024 6:43 PM EDT 08/14/2024 6:45 PM EDT Arben Ibarra MD LAB POINT OF CARE TE ST DOCKED DEVICE UNSOLICITED RESULTS Final Result Performing Organization Address City/State/[facility] de Phone Number [facility] [address] [place] [address] * (ABNORMAL) Protime-INR (08/14/2024 6:08 PM EDT) Prothrombin Time 27.3(H) 12.0 - 14.3 sec 08/14/2024 6:24 PM EDT [facility] INR 2.6(H) 0.9 - 1.1 08/14/2024 6:24 PM EDT [facility] Blood Venous blood specimen / Unknown Venipuncture / Unknown 08/14/2024 6:08 PM EDT 08/14/2024 6:10 PM EDT Narrative [facility] - 08/14/2024 6:24 PM EDT OPTIMAL INR RANGES FOR PATIENT ON ORAL ANTICOAGULANT THERAPY Prevention of venous thromboembolism INR 2.0 to 3.0 In patients with heart disease: Atrial fibrillation INR 2.0 to 3.0 Valvular heart disease INR 2.0 to 3.0 Tissue heart valves INR 2.0 to 3.0 Mechanical prosthetic valves INR 2.5 to 3.5 Prevention of recurrent GA INR 2.5 to 3.5 us Arben Ibarra MD LAB BLOOD ORDERABLES Final Re sult Performing Organization Address [facility] Co de Phone Number [facility] [address] [place] [address] * (ABNORMAL) Hemoglobin A1c (08/14/2024 6:08 PM EDT) Hemoglobin A1c 7.9(H) <5.7 % 08/15/2024 11:41 AM EDT [facility] Blood Venous blood specimen / Unknown Venipuncture / Unknown 08/14/2024 6:08 PM EDT 08/14/2024 6:10 PM EDT Narrative [facility] - 08/15/2024 11:41 AM EDT HA1C Interpretive Data: Diagnosis of Diabetes: Diabetic > or = 6.5% Pre-diabetic 5.7 to 6.4% Non-diabetic < or = 5.6% Glycemic Targets for Type I and Type II Diabetics: Non- Adults <7.0% Adults <6.0% Children and Adolescents <7.5% Source: [place] [employer]. Standards of medical care in diabetes,2017. Diabetes Care.2017:40 (suppl 1):S1-S135. Arben Ibarra MD LAB BLOOD ORDERABLES Final Re sult Performing Organization Address [facility] Co de Phone Number [facility] [address] [place] [address] * XR Chest 1 View (08/14/2024 3:52 PM EDT) Anatomical Region Laterality Modality Chest Digital Radiogra phy Impressions 08/14/2024 3:59 PM EDT Increased bilateral pleural effusions, greater on the right. Associated bibasilar atelectasis. CRITICAL RESULT: No. COMMUNICATION: Per this written report. By electronically signing this report, I, the attending physician, attest that I have personally reviewed the images/data for the above examination(s) and agree with the final edited report. Drafted by Sasha Cruz MD on 08/14/2024 3:55 PM Final report signed by Paola Polanco MD on 08/14/2024 3:59 PM Narrative 08/14/2024 3:59 PM EDT CLINICAL INDICATION: soa TECHNIQUE: XR CHEST 1 VIEW COMPARISON: 07/21/2024 FINDINGS: Left chest wall pacemaker leads project in similar position. Stable cardiac silhouette and mediastinal contours post median sternotomy. Increased bilateral pleural effusions, small on the left and medium sized on the right. Bibasilar opacities are likely atelectasis. No pneumothorax. No acute osseous findings. Procedure Note Paola Polanco MD - 08/14/2024 CLINICAL INDICATION: soa TECHNIQUE: XR CHEST 1 VIEW COMPARISON: 07/21/2024 FINDINGS: Left chest wall pacemaker leads project in similar position. Stablecardiac silhouette and mediastinal contours post median sternotomy.Increased bilateral pleural effusions, small on the left and medium sizedon the right. Bibasilar opacities are likely atelectasis. No pneumothorax.No acute osseous findings. IMPRESSION: Increased bilateral pleural effusions, greater on the right. Associatedbibasilar atelectasis. CRITICAL RESULT: No. COMMUNICATION: Per this written report. By electronically signing this report, I, the attending physician, attestthat I have personally reviewed the images/data for the aboveexamination(s) and agree with the final edited report. Drafted by Sasha Cruz MD on 08/14/2024 3:55 PM Final report signed by Paola Polanco MD on 08/14/2024 3:59 PM Jackson Punete MD IMG XR PROCEDURES Final Result * (ABNORMAL) BNP (08/14/2024 2:55 PM EDT) N-Terminal, PROBNP, Plasma 6,763(H) 0 - 899 pg/mL 08/14/2024 3:43 PM EDT [facility] Blood Venous blood specimen / Unknown Venipuncture / Unknown 08/14/2024 2:55 PM EDT 08/14/2024 2:58 PM EDT Jackson Puente MD LAB BLOOD ORDERABLES Fi nal Result [facility] [address] [place] [address] * (ABNORMAL) CBC w/diff (08/14/2024 2:55 PM EDT) WBC Count 6.61 3.70 - 10.30 10*3/uL LAB HEMATOLOGY METHOD 08/14/2024 3:00 PM EDT [facility] RBC Count 3.43(L) 3.90 - 5.20 10*6/uL LAB HEMATOLOGY METHOD 08/14/2024 3:00 PM EDT [facility] HGB 10.2(L) 11.2 - 15.7 g/dL LAB HEMATOLOGY METHOD 08/14/2024 3:00 PM EDT [facility] HCT 31.8(L) 34.0 - 45.0 % LAB HEMATOLOGY METHOD 08/14/2024 3:00 PM EDT [facility] Platelet Count 380(H) 155 - 369 10*3/uL LAB HEMATOLOGY METHOD 08/14/2024 3:00 PM EDT [facility] MCV 93 79 - 98 fL LAB HEMATOLOGY METHOD 08/14/2024 3:00 PM EDT [facility] MCH 29.7 26.0 - 32.0 pg LAB HEMATOLOGY METHOD 08/14/2024 3:00 PM EDT [facility] MCHC 32.1 30.7 - 35.5 g/dL LAB HEMATOLOGY METHOD 08/14/2024 3:00 PM EDT [facility] RDW 14.2 11.5 - 14.5 % LAB HEMATOLOGY METHOD 08/14/2024 3:00 PM EDT [facility] MPV 9.2 8.8 - 12.5 fL LAB HEMATOLOGY METHOD 08/14/2024 3:00 PM EDT [facility] nRBC 0.0 <=0.0 per 100 WBCs LAB HEMATOLOGY METHOD 08/14/2024 3:00 PM EDT [facility] Differential Type Automated LAB HEMATOLOGY METHOD 08/14/2024 3:00 PM EDT [facility] Neutrophils % 76 % LAB HEMATOLOGY METHOD 08/14/2024 3:00 PM EDT [facility] Lymphocytes % 11 % LAB HEMATOLOGY METHOD 08/14/2024 3:00 PM EDT [facility] Monocytes % 10 % LAB HEMATOLOGY METHOD 08/14/2024 3:00 PM EDT [facility] Eosinophils % 1 % LAB HEMATOLOGY METHOD 08/14/2024 3:00 PM EDT [facility] Basophils % 1 % LAB HEMATOLOGY METHOD 08/14/2024 3:00 PM EDT [facility] Immature Granulocytes % 1 % LAB HEMATOLOGY METHOD 08/14/2024 3:00 PM EDT [facility] Neutrophils Absolute 5.05 1.60 - 6.10 10*3/uL LAB HEMATOLOGY METHOD 08/14/2024 3:00 PM EDT [facility] Lymphocytes Absolute 0.70(L) 1.20 - 3.90 10*3/uL LAB HEMATOLOGY METHOD 08/14/2024 3:00 PM EDT [facility] Monocytes Absolute 0.69 0.30 - 0.90 10*3/uL LAB HEMATOLOGY METHOD 08/14/2024 3:00 PM EDT [facility] Eosinophils Absolute 0.08 0.00 - 0.50 10*3/uL LAB HEMATOLOGY METHOD 08/14/2024 3:00 PM EDT [facility] Basophils Absolute 0.06 0.00 - 0.10 10*3/uL LAB HEMATOLOGY METHOD 08/14/2024 3:00 PM EDT [facility] Immature Granulocytes Absolute 0.03 0.00 - 0.06 10*3/uL LAB HEMATOLOGY METHOD 08/14/2024 3:00 PM EDT [facility] Blood Venous blood specimen / Unknown Venipuncture / Unknown 08/14/2024 2:55 PM EDT 08/14/2024 2:58 PM EDT Narrative [facility] - 08/14/2024 3:00 PM EDT Therapeutic decision making should be based on absolute values, rather than percentages. us Jackson Puente MD LAB BLOOD ORDERABLES Fi nal Result [facility] [address] [place] [address] * (ABNORMAL) Troponin now and 120 min (08/14/2024 2:55 PM EDT) Troponin T, High Sensitivity, 0 Hour 29(H) <14 ng/L 08/14/2024 3:43 PM EDT [facility] Blood Venous blood specimen / Unknown Venipuncture / Unknown 08/14/2024 2:55 PM EDT 08/14/2024 2:58 PM EDT Jackson Puente MD LAB BLOOD ORDERABLES Fi nal Result Performing Organization Address City/[facility]/ZIP Co de Phone Number [facility] [address] [place] [address] * (ABNORMAL) Magnesium (08/14/2024 2:55 PM EDT) Magnesium, Plasma 1.6(L) 1.9 - 2.4 mg/dL 08/14/2024 3:43 PM EDT [facility] Blood Venous blood specimen / Unknown Venipuncture / Unknown 08/14/2024 2:55 PM EDT 08/14/2024 2:58 PM EDT Jackson Puente MD LAB BLOOD ORDERABLES Fi nal Result Performing Organization Address City/[facility]/ZIP Co de Phone Number [facility] [address] [place] [address] * (ABNORMAL) CMP (08/14/2024 2:55 PM EDT) Glucose, Plasma 282(H) 74 - 99 mg/dL 08/14/2024 3:43 PM EDT [facility] BUN, Plasma 19 8 - 23 mg/dL 08/14/2024 3:43 PM EDT [facility] Creatinine, Plasma 0.82 0.60 - 1.10 mg/dL 08/14/2024 3:43 PM EDT [facility] BUN/Creatinine Ratio 23 08/14/2024 3:43 PM EDT [facility] Sodium, Plasma 128(L) 136 - 145 mmol/L 08/14/2024 3:43 PM EDT [facility] Potassium, Plasma 3.6 3.6 - 4.9 mmol/L 08/14/2024 3:43 PM EDT [facility] Chloride, Plasma 90(L) 97 - 107 mmol/L 08/14/2024 3:43 PM EDT [facility] CO2, Plasma 25 22 - 29 mmol/L 08/14/2024 3:43 PM EDT [facility] Anion Gap 13 6 - 16 mmol/L 08/14/2024 3:43 PM EDT [facility] Total Calcium, Plasma 8.9 8.9 - 10.2 mg/dL 08/14/2024 3:43 PM EDT [facility] Total Protein 7.4 6.3 - 7.9 g/dL 08/14/2024 3:43 PM EDT [facility] Albumin, Plasma 3.6 3.5 - 5.2 g/dL 08/14/2024 3:43 PM EDT [facility] AST, Plasma 32 10 - 35 U/L 08/14/2024 3:43 PM EDT [facility] ALT, Plasma 20 10 - 35 U/L 08/14/2024 3:43 PM EDT [facility] Alkaline Phosphatase, Plasma 117 46 - 142 U/L 08/14/2024 3:43 PM EDT [facility] Total Bilirubin, Plasma 0.5 0.2 - 1.1 mg/dL 08/14/2024 3:43 PM EDT [facility] eGFRcr 75.6 mL/min/1.7 3m*2 08/14/2024 3:43 PM EDT [facility] Comment:Reported eGFRcr in m L/min/1.73m2 is based the CKD-EPI 2020 equation that does not use a race coefficient. Blood Venous blood specimen / Unknown Venipuncture / Unknown 08/14/2024 2:55 PM EDT 08/14/2024 2:58 PM EDT us Jackson Puente MD LAB BLOOD ORDERABLES Fi nal Result [facility] [address] [place] [address] * EKG now - STAT (adult) (08/14/2024 2:31 PM EDT) EKG DIAGNOSIS CLASS Abnormal MUSE ECG Ventricular Rate 60 BPM MUSE ECG Atrial Rate 28 BPM MUSE ECG QRSD Interval 192 ms MUSE ECG QT Interval 554 ms MUSE ECG QTC Interval 554 ms MUSE ECG P [place] 48 degrees MUSE ECG R [place] -66 degrees MUSE ECG T Wave [place] 114 degrees MUSE ECG Diagnosis Ventricular-pa amber rhythm MUSE ECG Diagnosis Abnormal ECG MUSE ECG Diagnosis MUSE ECG Diagnosis Compared to last ECG MUSE ECG Diagnosis No significant change was found MUSE ECG Diagnosis Confirmed by Cristian Irwin ([id number]) on 08/15/2024 10:41:50 AM MUSE ECG 08/14/2024 2:31 PM EDT 08/15/2024 10:41 AM EDT us Jackson Puente MD ECG ORDERABLES Final R esult MUSE ECG documented in this encounter Visit Diagnoses Diagnosis Acute on chronic hypoxic respiratory failure- Primary Acute on chronic congestive heart failure, unspecified heart failure type (CMS/HCC) Shortness of breath Pleural effusion Unspecified pleural effusion Systemic lupus erythematosus (SLE) in adult (CMS/HCC) Pleural effusion Unspecified pleural effusion Atrial fibrillation (CMS/HCC) Atrial fibrillation Heart failure with preserved ejection fraction (CMS/HCC) SLE (systemic lupus erythematosus) (CMS/HCC) Systemic lupus erythematosus Presence of cardiac pacemaker Cardiac pacemaker in situ Acquired hypothyroidism Unspecified hypothyroidism Acute on chronic congestive heart failure (CMS/HCC) Type 1 diabetes mellitus with other specified complication (CMS/HCC) Acute on chronic congestive heart failure, unspecified heart failure type (CMS/HCC) Pleural effusion Unspecified pleural effusion documented in this encounter Admitting Diagnoses Diagnosis Acute on chronic hypoxic respiratory failure Acute on chronic congestive heart failure (CMS/HCC) documented in this encounter Administered Medications Inactive Administered Medications - up to 3 most recent administrations Medication Order MAR Action Action Date Dose Rate Site acetaminophen (Tylenol) tablet 650 mg 650 mg, Oral, Every 6 hours PRN, Starting on Fri08/17/24 at 2237, Until Fri08/24/24 at 1720, Routine, mild pain, moderate pain, headaches, fever Given 08/23/2024 10:32 PM EDT 650 mg Given 08/22/2024 12:46 AM EDT 650 mg Given 08/18/2024 8:00 AM EDT 650 mg aspirin chewable tablet 81 mg 81 mg, Oral, Daily, First dose on Fri08/15/24 at 0900, Until Discontinued, Routine Given 08/24/2024 8:11 AM EDT 81 mg Given 08/23/2024 8:51 AM EDT 81 mg Given 08/22/2024 9:30 AM EDT 81 mg brimonidine (AlphaGAN P) 0.2 % ophthalmic solution 1 drop 1 drop, Both Eyes, Daily, First dose on Fri08/16/24 at 1600, Until Discontinued, Routine Given 08/23/2024 8:14 PM E DT 1 drop Given 08/22/2024 9:23 PM EDT 1 drop Given 08/21/2024 9:06 PM EDT 1 drop calcium carbonate (Tums) chewable tablet 500 mg 500 mg, Oral, 4 times daily PRN, Starting on Fri08/22/24 at 2111, Until Fri08/24/24 at 1720, Routine, indigestion, heartburn cetirizine (ZyrTEC) tablet 10 mg 10 mg, Oral, Nightly, First dose on Fri08/14/24 at 2100, Until Discontinued, Routine Given 08/23/2024 8:08 PM EDT 10 mg Given 08/22/2024 9:18 PM EDT 10 mg Given 08/21/2024 8:58 PM EDT 10 mg dextrose 50 % solution 12.5-25 g 12.5-25 g, Intravenous, Every 15 min PRN, Starting on Fri08/14/24 at 1721, Until Fri08/24/24 at 1720, Routine, low blood sugar Given 08/19/2024 3:15 AM EDT 12 .5 g Given 08/18/2024 1:05 AM EDT 12.5 g DULoxetine (Cymbalta) DR capsule 80 mg 80 mg, Oral, Every morning, First dose on Fri08/15/24 at 0600, Until Discontinued, Routine Given 08/24/2024 5:23 AM EDT 80 mg Given 08/23/2024 6:23 AM EDT 80 mg Given 08/22/2024 9:29 AM EDT 80 mg enoxaparin (Lovenox) syringe 40 mg 40 mg, Subcutaneous, Daily, First dose (after last modification) on Fri08/20/24 at 0900, Until Discontinued, Routine Given 08/24/2024 8:11 AM EDT 40 mg Left Lower Abdomen Given 08/23/2024 8:50 AM EDT 40 mg Ri ght Lower Abdomen Given 08/21/2024 9:14 AM EDT 40 mg Le ft Lower Abdomen ezetimibe (Zetia) tablet 10 mg 10 mg, Oral, Nightly, First dose on 08/16/24 at 2100, Until Discontinued, Routine Given 08/23/2024 8:10 PM EDT 10 mg Given 08/22/2024 9:17 PM EDT 10 mg Given 08/21/2024 8:58 PM EDT 10 mg folic acid (Folvite) tablet 1 mg 1 mg, Oral, Daily, First dose on 08/14/24 at 1730, Until Discontinued, Routine Given 08/24/2024 8:11 AM EDT 1 mg Given 08/23/2024 8:51 AM EDT 1 mg Given 08/22/2024 9:30 AM EDT 1 mg furosemide (Lasix) injection 40 mg 40 mg, Intravenous, Every 8 hours, First dose on 08/14/24 at 1715, Until Discontinued, Routine Given 08/18/2024 7:56 AM EDT 40 mg Given 08/18/2024 12:24 AM EDT 40 mg Given 08/17/2024 6:14 PM EDT 40 mg furosemide (Lasix) injection 40 mg 40 mg, Intravenous, Every 12 hours, First dose (after last modification) on 08/18/24 at 2000, Until Discontinued, Routine Given 08/19/2024 8:39 AM EDT 40 mg Given 08/18/2024 9:53 PM EDT 40 mg furosemide (Lasix) injection 60 mg 60 mg, Intravenous, Once, 1 dose, On 08/15/24 at 0720, STAT Given 08/15/2024 7:27 AM EDT 60 mg furosemide (Lasix) injection 60 mg 60 mg, Intravenous, Once, 1 dose, On 08/16/24 at 1500, STAT Given 08/16/2024 2:46 PM EDT 60 mg furosemide (Lasix) tablet 40 mg 40 mg, Oral, 2 times daily (0900 & 1500), First dose on Lurdes 08/19/24 at 1500, Until Discontinued, Routine Given 08/19/2024 2:42 PM EDT 40 mg furosemide (Lasix) tablet 40 mg 40 mg, Oral, Daily, First dose on Fri08/22/24 at 1130, Until Discontinued, Routine Given 08/22/2024 11:3 5 AM EDT 40 mg furosemide (Lasix) tablet 40 mg 40 mg, Oral, Daily, First dose on Fri08/24/24 at 1345, Until Discontinued, Routine Given 08/24/2024 2:35 PM EDT 40 mg gabapentin (Neurontin) capsule 300 mg 300 mg, Oral, 2 times daily, First dose on Fri08/14/24 at 2100, Until Discontinued, Routine Given 08/24/2024 8:11 AM EDT 300 mg Given 08/23/2024 8:08 PM EDT 300 mg Given 08/23/2024 8:51 AM EDT 300 mg glucagon (human recombinant) injection 1 mg 1 mg, Intramuscular, Every 15 min PRN, Starting on Fri08/14/24 at 1721, Until Fri08/24/24 at 1720, Routine, low blood sugar per Hypoglycemia Prevention and Treatment protocol glucose (Glutose) 40 % oral gel 15-30 grams of glucose 15-30 grams of glucose, Sublingual, Every 15 min PRN, Starting on Fri08/14/24 at 1721, Until Fri08/24/24 at 1720, Routine, low blood sugar, per Hypoglycemia Prevention and Treatment protocol Given 08/19/2024 2:03 AM EDT 15 grams of glucose Given 08/15/2024 6:10 AM EDT 15 grams of glucose Given 08/15/2024 5:50 AM EDT 15 grams of glucose heparin (porcine) injection 5,000 Units 5,000 Units, Subcutaneous, Every 8 hours scheduled, First dose on 08/14/24 at 1715, Until Discontinued, Routine Given 08/14/2024 5:28 PM EDT 5,000 Units Left Upper Abdomen HYDROmorphone (Dilaudid) injection 0.25 mg 0.25 mg, Intravenous, Once, 1 dose, On Tu08/17/24 at 1030, Routine Given 08/17/2024 10:11 AM EDT 0.25 mg HYDROmorphone (Dilaudid) injection 0.5 mg 0.5 mg, Intravenous, Once, 1 dose, On Fri08/19/24 at 1200, STAT Given 08/19/2024 11:21 AM EDT 0.5 mg hydroxychloroquine (Plaquenil) tablet 200 mg 200 mg, Oral, Daily, First dose on Fri08/15/24 at 1600, Until Discontinued, Routine Given 08/23/2024 8:08 PM EDT 200 mg Given 08/22/2024 9:18 PM EDT 200 mg Given 08/21/2024 8:57 PM EDT 200 mg insulin glargine-yfgn 100 UNIT/ML injection 10 Units 10 Units, Subcutaneous, Nightly, First dose on Fri08/14/24 at 2100, Until Discontinued, Routine Given 08/14/2024 9:08 PM EDT 10 Units Right Upper Arm (Janessa k) insulin glargine-yfgn 100 UNIT/ML injection 10 Units 10 Units, Subcutaneous, Nightly, First dose (after last modification) on Fri08/16/24 at 2100, Until Discontinued, Routine Given 08/16/2024 9:07 PM EDT 7 Units Left Lower Abdomen insulin glargine-yfgn 100 UNIT/ML injection 12 Units 12 Units, Subcutaneous, Nightly, First dose (after last modification) on Fri08/18/24 at 2100, Until Discontinued, Routine Given 08/18/2024 9:51 PM EDT 12 Units Left Upper Abdomen insulin glargine-yfgn 100 UNIT/ML injection 14 Units 14 Units, Subcutaneous, Nightly, First dose (after last modification) on Fri08/17/24 at 2100, Until Discontinued, Routine Given 08/17/2024 9:16 PM EDT 14 Units Left Lower Abdomen insulin glargine-yfgn 100 UNIT/ML injection 6 Units 6 Units, Subcutaneous, Nightly, First dose (after last modification) on Fri08/15/24 at 2145, Until Discontinued, Routine Given 08/15/2024 10:13 PM EDT 6 Units Left Lower Abdomen insulin glargine-yfgn 100 UNIT/ML injection 7 Units 7 Units, Subcutaneous, Nightly, First dose (after last modification) on Fri08/19/24 at 2100, Until Discontinued, Routine Given 08/19/2024 8:23 PM EDT 7 Units Left Upper Arm (Back ) insulin glargine-yfgn 100 UNIT/ML injection 7 Units 7 Units, Subcutaneous, 2 times daily, First dose (after last modification) on Fri08/20/24 at 2100, Until Discontinued, Routine Given 08/23/2024 8:53 AM EDT 7 Units Right Upper Arm (Janessa k) Given 08/22/2024 9:18 PM EDT 7 Units Ri ght Lower Abdomen Given 08/22/2024 9:28 AM EDT 7 Units Le ft Upper Arm (Back) insulin glargine-yfgn 100 UNIT/ML injection 9 Units 9 Units, Subcutaneous, 2 times daily, First dose (after last modification) on Fri08/23/24 at 2100, Until Discontinued, Routine Given 08/24/2024 8:10 AM EDT 9 Units Left Upper Arm (Back ) insulin lispro (Admelog) 100 units/mL injection - Correction - Standard Dose 0-5 Units, Subcutaneous, 3 times daily with meals, First dose on 08/14/24 at 1730, Until Discontinued, Routine Given 08/24/2024 1:02 PM EDT 3 Units Right Upper Arm (Janessa k) Given 08/24/2024 8:10 AM EDT 5 Units Le ft Upper Arm (Back) Given 08/23/2024 12:31 PM EDT 2 Units R ight Upper Arm (Back) insulin lispro (Admelog) injection - Correction - Nighttime Dose 0-3 Units, Subcutaneous, 2 times nightly (2099 & 299), First dose on 08/14/24 at 2100, Until Discontinued, Routine Given 08/23/2024 3:18 AM EDT 1 Units Left Upper Arm (Back ) Given 08/21/2024 3:51 AM EDT 3 Units Ri ght Lower Abdomen Given 08/20/2024 9:28 PM EDT 1 Units Le ft Lower Abdomen Insulin Lispro (Admelog, HumaLOG) 100 UNIT/ML injection 10 Units 10 Units, Subcutaneous, Once, 1 dose, On Fri08/18/24 at 204, Routine Given 08/18/2024 9:52 PM EDT 10 Units Right Upper Abdomen Insulin Lispro (Admelog, HumaLOG) 100 UNIT/ML injection 2 Units 2 Units, Subcutaneous, 3 times daily with meals, First dose on Fri08/20/24 at 1230, Until Discontinued, Routine Given 08/21/2024 1:09 PM EDT 2 Units Right Upper Arm (Janessa k) Given 08/21/2024 9:14 AM EDT 2 Units L eft Upper Arm (Back) Given 08/20/2024 5:34 PM EDT 2 Units Le ft Upper Arm (Back) Insulin Lispro (Admelog, HumaLOG) 100 UNIT/ML injection 4 Units 4 Units, Subcutaneous, 3 times daily with meals, First dose (after last modification) on 08/21/24 at 1730, Until Discontinued, Routine Given 08/24/2024 1:02 PM EDT 4 Units Right Upper Arm (Janessa k) Given 08/24/2024 8:11 AM EDT 4 Units Le ft Upper Arm (Back) Given 08/23/2024 4:47 PM EDT 4 Units Ri ght Upper Arm (Back) Insulin Lispro (Admelog, HumaLOG) 100 UNIT/ML injection 6 Units 6 Units, Subcutaneous, Once, 1 dose, On Fri08/17/24 at 1345, Routine Given 08/17/2024 1:22 PM EDT 6 Units Left Lower Abdomen Insulin Lispro (Admelog, HumaLOG) 100 UNIT/ML injection 6 Units 6 Units, Subcutaneous, Once, 1 dose, On Lurdes 08/19/24 at 0015, Routine Given 08/18/2024 11:39 PM EDT 6 Units Left Upper Arm (Back) ipratropium-albuterol (Duo-Neb) 0.5-2.5 mg/3 mL nebulizer solution 3 mL 3 mL, Nebulization, Every 6 hours PRN, Starting on Fri08/15/24 at 0421, Until Fri08/24/24 at 1720, Routine, wheezing Given 08/15/2024 4:35 AM EDT 3 mL lactated Ringer's bolus 500 mL 500 mL, Intravenous, Once, 1 dose, On 08/21/24 at 0730, Administer over 2 Hours, Routine New Bag 08/21/2024 9:14 AM EDT 500 mL 250 mL/hr latanoprost (Xalatan) 0.005 % ophthalmic solution 1 drop 1 drop, Both Eyes, Nightly, First dose on 08/14/24 at 2100, Until Discontinued, Routine Given 08/23/2024 8:14 PM EDT 1 drop Given 08/22/2024 9:24 PM EDT 1 drop Given 08/21/2024 9:06 PM EDT 1 drop levothyroxine (Synthroid, Levoxyl) tablet 125 mcg 125 mcg, Oral, Every morning, First dose on Fri08/15/24 at 0600, Until Discontinued, Routine Given 08/24/2024 5:23 AM EDT 125 mcg Given 08/23/2024 6:23 AM EDT 125 mcg Given 08/22/2024 5:18 AM EDT 125 mcg lidocaine (Xylocaine) 1 % injection 20 mL 20 mL, Infiltration, Once, 1 dose, On Fri08/17/24 at 1030, Routine Given 08/17/2024 10:17 AM EDT 20 mL lidocaine (Xylocaine) 1 % injection 20 mL 20 mL, Infiltration, Once, 1 dose, On Fri08/19/24 at 0900, Routine Given 08/19/2024 11:27 AM EDT 20 mL LORazepam (Ativan) injection 0.26 mg 0.26 mg (rounded from 0.25 mg), Intravenous, Once, 1 dose, On Fri08/19/24 at 1200, STAT Given 08/19/2024 11:21 AM EDT 0.26 mg magic mouthwash BLM (FIRST-Mouthwash) suspension 15 mL 15 mL, Swish & Spit, 4 times daily before meals and nightly, First dose on Fri08/16/24 at 1700, Until Discontinued, Routine Given 08/24/2024 1:00 PM EDT 15 mL Given 08/24/2024 8:11 AM EDT 15 mL Given 08/23/2024 8:10 PM EDT 15 mL magnesium oxide (Mag-Ox) tablet 400 mg 400 mg, Oral, Once, 1 dose, On Fri08/19/24 at 0830, Routine Given 08/19/2024 8:39 AM EDT 400 mg magnesium oxide (Mag-Ox) tablet 400 mg 400 mg, Oral, Daily, First dose on Fri08/20/24 at 0900, Until Discontinued, Routine Given 08/22/2024 9:29 AM EDT 400 mg Given 08/21/2024 9:15 AM EDT 400 mg Given 08/20/2024 9:42 AM EDT 400 mg magnesium sulfate IVPB 2 g 2 g, Intravenous, Once, 1 dose, On Fri08/14/24 at 1630, STAT New Bag 08/14/2024 5:27 PM EDT 2 g 25 mL/hr magnesium sulfate IVPB 2 g 2 g, Intravenous, Once, 1 dose, On Fri08/16/24 at 0945, Routine New Bag 08/16/2024 9:33 AM EDT 2 g 25 mL/h r magnesium sulfate IVPB 2 g 2 g, Intravenous, Once, 1 dose, On Fri08/17/24 at 0815, Routine New Bag 08/17/2024 9:34 AM EDT 2 g 25 mL/ hr melatonin tablet 6 mg 6 mg, Oral, Nightly PRN, Starting on Fri08/14/24 at 2334, Until Fri08/24/24 at 1720, Routine, sleep Given 08/23/2024 8:08 PM EDT 6 mg Given 08/22/2024 9:18 PM EDT 6 mg Given 08/21/2024 1:55 AM EDT 6 mg metoprolol succinate XL (Toprol-XL) 24 hr tablet 25 mg 25 mg, Oral, Daily, First dose on Fri08/15/24 at 0900, Until Discontinued, Routine Given 08/24/2024 8:11 AM EDT 25 mg Given 08/23/2024 8:51 AM EDT 25 mg Given 08/22/2024 9:29 AM EDT 25 mg mometasone-formoterol (Dulera 100) 100-5 MCG/ACT inhaler 2 puff 2 puff, Inhalation, 2 times daily, First dose on Fri08/16/24 at 2100, Until Discontinued Given 08/23/2024 8:14 PM EDT 2 puffs Given 08/23/2024 9:10 AM EDT 2 puffs Given 08/22/2024 9:30 PM EDT 2 puffs mupirocin (Bactroban) 2 % ointment 1 Application Each Nostril, 2 times daily, 10 doses, First dose on Fri08/17/24 at 0900, Last dose on Fri08/21/24 at 2100, Routine Given 08/21/2024 8:58 PM EDT 1 Application Given 08/21/2024 9:15 AM EDT 1 Application Given 08/20/2024 9:29 PM EDT 1 Application mycophenolate (Cellcept) capsule 1,000 mg 1,000 mg, Oral, 2 times daily, First dose on 08/16/24 at 1145, Until Discontinued, Routine Given 08/24/2024 8:11 AM EDT 1,000 mg Given 08/23/2024 8:08 PM EDT 1,000 mg Given 08/23/2024 8:51 AM EDT 1,000 mg ondansetron ODT (Zofran-ODT) disintegrating tablet 4 mg 4 mg, Oral, Once, 1 dose, On Fri08/22/24 at 1130, Routine Given 08/22/2024 11:35 AM EDT 4 mg oxyCODONE (Roxicodone) immediate release tablet 5 mg 5 mg, Oral, Every 6 hours PRN, Starting on Lurdes 08/19/24 at 1107, Until Fri08/24/24 at 1720, Routine, moderate pain Given 08/22/2024 9:19 PM EDT 5 mg Given 08/22/2024 9:39 AM EDT 5 mg potassium chloride CR (Klor-Con) ER tablet 20 mEq 20 mEq, Oral, Once, 1 dose, On Fri08/15/24 at 0820, Routine Given 08/15/2024 8:58 AM EDT 20 mEq potassium chloride CR (Klor-Con) ER tablet 20 mEq 20 mEq, Oral, Once, 1 dose, On Fri08/17/24 at 1430, Routine Given 08/17/2024 3:37 PM EDT 20 mEq potassium chloride CR (Klor-Con) ER tablet 40 mEq 40 mEq, Oral, Once, 1 dose, On Fri08/15/24 at 0620, Routine Given 08/15/2024 7:27 AM EDT 40 mEq potassium chloride CR (Klor-Con) ER tablet 40 mEq 40 mEq, Oral, Once, 1 dose, On Fri08/17/24 at 1230, Routine Given 08/17/2024 1:22 PM EDT 40 mEq sodium chloride 0.9 % flush 10 mL 10 mL, Intravenous, Every 12 hours, First dose on 08/14/24 at 1715, Until Discontinued, Routine Given 08/24/2024 8:11 AM EDT 10 mL Given 08/23/2024 8:09 PM EDT 10 mL Given 08/23/2024 8:54 AM EDT 10 mL sodium chloride 0.9 % flush 10 mL 10 mL, Intravenous, As needed, Starting on Fri08/14/24 at 1710, Until Fri08/24/24 at 1720, Routine, line care spironolactone (Aldactone) tablet 12.5 mg 12.5 mg, Oral, Daily, First dose (after last modification) on Fri08/15/24 at 0900, Until Discontinued, Routine Given 08/19/2024 8:40 AM EDT 12.5 mg Given 08/18/2024 9:55 AM EDT 12.5 mg Given 08/17/2024 9:33 AM EDT 12.5 mg spironolactone (Aldactone) tablet 12.5 mg 12.5 mg, Oral, Daily, First dose on Fri08/24/24 at 1345, Until Discontinued, Routine Talc (Steritalc) powder 4 g 4 g, Intrapleural, Once, 1 dose, On Fri08/19/24 at 0900, Routine Given 08/19/2024 11:27 AM EDT 4 g Tiotropium [place] Monohydrate (Spiriva Respimat) 2.5 MCG/ACT inhaler 2 puff 2 puff, Inhalation, Daily, First dose on Fri08/16/24 at 1600, Until Discontinued Given 08/23/2024 9:10 AM EDT 2 puf fs Given 08/20/2024 8:36 AM EDT 2 puffs Given 08/19/2024 8:47 AM EDT 2 puffs warfarin (Coumadin) tablet 2.5 mg 2.5 mg, Oral, Every 7 days, First dose on Fri08/24/24 at 1700, Until Discontinued, Routine warfarin (Coumadin) tablet 5 mg 5 mg, Oral, User specified (Once per day on Friday), First dose on Fri08/20/24 at 1700, Until Discontinued, Routine Given 08/23/2024 4:48 PM EDT 5 mg Given 08/22/2024 5:42 PM EDT 5 mg Given 08/21/2024 6:00 PM EDT 5 mg documented in this encounter Active and Recently Administered Medications Times are shown in EDT. Scheduled Medication Order 08/22/2024 08/23/2024 08/24/2024 aspirin chewable tablet 81 mg 81 mg, Oral, Daily, First dose on 08/15/24 at 0900, Until Discontinued, Routine 09 (Given - Provider: Kosta Dugan RN) 0851 (Given - Provider: Marilee Fabian RN) 0811 (Given - Provider: Kosta Dugan RN) brimonidine (AlphaGAN P) 0.2 % ophthalmic solution 1 drop 1 drop, Both Eyes, Daily, First dose on Fri08/16/24 at 1600, Until Discontinued, Routine 2122 (Given - Provider: Puja Le RN) 2013 (Given - Provider: Jennifer Carroll RN) cetirizine (ZyrTEC) tablet 10 mg 10 mg, Oral, Nightly, First dose on 08/14/24 at 2100, Until Discontinued, Routine 2117 (Given - Provider: Puja Le RN) 2007 (Given - Provider: Jennifer Carroll RN) DULoxetine (Cymbalta) DR capsule 80 mg 80 mg, Oral, Every morning, First dose on 08/15/24 at 0600, Until Discontinued, Routine 928 (Given - Provider: Kosta Dugan RN - Comment: given with morning meds) 06 (Given - Provider: Puja Le RN) 0523 (Given - Provider: Jennifer Carroll RN) enoxaparin (Lovenox) syringe 40 mg 40 mg, Subcutaneous, Daily, First dose (after last modification) on Fri08/20/24 at 0900, Until Discontinued, Routine 09 (Not Given - Provider: Kosta Dugan RN - Reason: Patient/family refused) 0850 (Given - Provider: Marilee Fabian, EVITA) 0811 (Given - Provider: Kosta Dugan RN) ezetimibe (Zetia) tablet 10 mg 10 mg, Oral, Nightly, First dose on Fri08/16/24 at 2100, Until Discontinued, Routine 2116 (Given - Provider: Puja Le RN) 2009 (Given - Provider: Jennifer Carroll RN) folic acid (Folvite) tablet 1 mg 1 mg, Oral, Daily, First dose on 08/14/24 at 1730, Until Discontinued, Routine 0930 (Given - Provider: Kosta Dugan RN) 0851 (Given - Provider: Marilee Fabian RN) 0811 (Given - Provider: Kosta Dugan RN) furosemide (Lasix) tablet 40 mg (CANCELED) 40 mg, Oral, Daily, First dose on Fri08/22/24 at 1130, Until Discontinued, Routine 1135 (Given - Provider: Kosta Dugan RN) furosemide (Lasix) tablet 40 mg 40 mg, Oral, Daily, First dose on Fri08/24/24 at 1345, Until Discontinued, Routine 1435 (Given - Provider: Kosta Dugan RN) gabapentin (Neurontin) capsule 300 mg 300 mg, Oral, 2 times daily, First dose on 08/14/24 at 2100, Until Discontinued, Routine 0930 (Given - Provider: Kosta Dugan RN)2116 (Given - Provider: Puja Le RN) 0851 (Given - Provider: Marilee Fabian RN)2007 (Given - Provider: Jennifer Carroll RN) 0811 (Given - Provider: Kosta Dugan, EVITA) hydroxychloroquine (Plaquenil) tablet 200 mg 200 mg, Oral, Daily, First dose on Fri08/15/24 at 1600, Until Discontinued, Routine 2117 (Given - Provider: Puja Le RN) 2007 (Given - Provider: Jennifer Carroll, EVITA) insulin glargine-yfgn 100 UNIT/ML injection 7 Units (CANCELED) 7 Units, Subcutaneous, 2 times daily, First dose (after last modification) on Fri08/20/24 at 2100, Until Discontinued, Routine 0928 (Given - Provider: Kosta Dugan RN)2117 (Given - Provider: Puja Le, EVITA) 0853 (Given - Provider: Marilee Fabian RN) insulin glargine-yfgn 100 UNIT/ML injection 9 Units 9 Units, Subcutaneous, 2 times daily, First dose (after last modification) on Fri08/23/24 at 2100, Until Discontinued, Routine 2028 (Not Given - Provider: Jennifer Carroll RN - Reason: See Provider Order - Comment: held per verbal order from Mason Vaughan MD) 0810 (Given - Provider: Kosta Dugan RN) insulin lispro (Admelog) 100 units/mL injection - Correction - Standard Dose 0-5 Units, Subcutaneous, 3 times daily with meals, First dose on 08/14/24 at 1730, Until Discontinued, Routine 0929 (Given - Provider: Kosta Dugan RN)1135 (Given - Provider: Kosta Dugan RN)1633 (Not Given - Provider: Kosta Dugan RN - Reason: Order parameters not met) 0906 (Given - Provider: Marilee Fabian RN)1231 (Given - Provider: Marilee Fabian RN)1729 (Not Given - Provider: Marilee Fabian RN - Reason: Order parameters not met) 0810 (Given - Provider: Kosta Dugan RN)1302 (Given - Provider: Kosta Dugan RN) insulin lispro (Admelog) injection - Correction - Nighttime Dose 0-3 Units, Subcutaneous, 2 times nightly (2100 & 0300), First dose on 08/14/24 at 2100, Until Discontinued, Routine 0326 (Not Given - Provider: Mary Hopper RN - Reason: Order parameters not met)2321 (Not Given - Provider: Puja Le RN - Reason: Patient/family refused - Comment: secure message Dr. Eduardo Hoang informing of refusal. Pt educated) 0318 (Given - Provider: Puja Le RN)2100 (Canceled Entry - Provider: Jennifer Carroll RN - Comment: order parameters not met) 0300 (Canceled Entry - Provider: Jennifer Carroll RN - Comment: order parameters not met) Insulin Lispro (Admelog, HumaLOG) 100 UNIT/ML injection 4 Units 4 Units, Subcutaneous, 3 times daily with meals, First dose (after last modification) on 08/21/24 at 1730, Until Discontinued, Routine 0929 (Given - Provider: Kosta Dugan RN)1135 (Given - Provider: Kosta Dugan RN)1633 (Not Given - Provider: Kosta Dugan RN - Reason: Order parameters not met - Comment: BG 78) 0852 (Given - Provider: Marilee Fabian RN)1230 (Given - Provider: Marilee Fabian RN)1647 (Given - Provider: Marilee Fabian RN) 0811 (Given - Provider: Kosta Dugan RN)1302 (Given - Provider: Kosta Dugan RN) latanoprost (Xalatan) 0.005 % ophthalmic solution 1 drop 1 drop, Both Eyes, Nightly, First dose on Fri08/14/24 at 2100, Until Discontinued, Routine 2123 (Given - Provider: Puja Le, EVITA) 2013 (Given - Provider: Jennifer Carroll, EVITA) levothyroxine (Synthroid, Levoxyl) tablet 125 mcg 125 mcg, Oral, Every morning, First dose on Fri08/15/24 at 0600, Until Discontinued, Routine 0518 (Given - Provider: Mary Hopper RN) 0623 (Given - Provider: Puja Le RN) 0523 (Given - Provider: Jennifer Carroll RN) magic mouthwash BLM (FIRST-Mouthwash) suspension 15 mL 15 mL, Swish & Spit, 4 times daily before meals and nightly, First dose on Fri08/16/24 at 1700, Until Discontinued, Routine 0930 (Given - Provider: Kosta Dugan RN)1135 (Given - Provider: Kosta Dugan, EVITA)1742 (Given - Provider: Kosta Dugan, EVITA)2123 (Given - Provider: Puja Le RN) 0854 (Given - Provider: Marilee Fabian RN)1232 (Given - Provider: Marilee Fabian RN)1649 (Given - Provider: Marilee Fabian RN)2009 (Given - Provider: Jennifer Carroll RN) 0811 (Given - Provider: Kosta Dugan RN)1300 (Given - Provider: Kosta Dugan RN)1700 (Canceled Entry - Provider: Automatic Discharge Provider - Comment: Automatically canceled at discontinue of medication order) magnesium oxide (Mag-Ox) tablet 400 mg (CANCELED) 400 mg, Oral, Daily, First dose on Fri08/20/24 at 0900, Until Discontinued, Routine 0929 (Given - Provider: Kosta Dugan RN) metoprolol succinate XL (Toprol-XL) 24 hr tablet 25 mg 25 mg, Oral, Daily, First dose on 08/15/24 at 0900, Until Discontinued, Routine 09 (Given - Provider: Kosta Dugan RN) 0851 (Given - Provider: Marilee Fabian RN) 0811 (Given - Provider: Kosta Dugan RN) mometasone-formoterol (Dulera 100) 100-5 MCG/ACT inhaler 2 puff(Linked Group 1) 2 puff, Inhalation, 2 times daily, First dose on 08/16/24 at 2100, Until Discontinued 928 (Not Given - Provider: Kosta Dugan RN - Reason: Patient/family refused - Comment: Pt. stated she doesnt take them in the morning.)2129 (Given - Provider: Puja Le, EVITA) 909 (Given - Provider: Marilee Fabian RN)2013 (Given - Provider: Jennifer Carroll RN) 0816 (Not Given - Provider: Kosta Dugan RN - Reason: Patient/family refused) mycophenolate (Cellcept) capsule 1,000 mg 1,000 mg, Oral, 2 times daily, First dose on Fri08/16/24 at 1145, Until Discontinued, Routine 30 (Given - Provider: Kosta Dugan, EVITA)2116 (Given - Provider: Puja Le, EVITA) 0851 (Given - Provider: Marilee Fabian RN)2007 (Given - Provider: Jennifer Carroll RN) 0811 (Given - Provider: Kosta Dugna, EVITA) ondansetron ODT (Zofran-ODT) disintegrating tablet 4 mg (COMPLETED)(Linked Group 2) 4 mg, Oral, Once, 1 dose, On 08/22/24 at 1130, Routine 1135 (Given - Provider: Kosta Dugan, EVITA) sodium chloride 0.9 % flush 10 mL(Linked Group 3) 10 mL, Intravenous, Every 12 hours, First dose on 08/14/24 at 1715, Until Discontinued, Routine 0930 (Given - Provider: Kosta Dugan RN)2125 (Given - Provider: Puja Le RN) 0854 (Given - Provider: Marilee Fabian RN)2008 (Given - Provider: Jennifer Carroll RN) 08 (Given - Provider: Kosta Dugan RN) spironolactone (Aldactone) tablet 12.5 mg 12.5 mg, Oral, Daily, First dose on Fri08/24/24 at 1345, Until Discontinued, Routine 1434 (Not Given - Provider: Kosta Dugan RN - Reason: Patient/family refused) Tiotropium [place] Monohydrate (Spiriva Respimat) 2.5 MCG/ACT inhaler 2 puff(Linked Group 1) 2 puff, Inhalation, Daily, First dose on Fri08/16/24 at 1600, Until Discontinued 09 (Not Given - Provider: Kosta Dugan RN - Reason: Patient/family refused - Comment: Pt. stated she doesnt take them in the morning.) 09 (Given - Provider: Marilee Fabian RN) 0815 (Not Given - Provider: Kosta Dugan RN - Reason: Patient/family refused) warfarin (Coumadin) tablet 2.5 mg 2.5 mg, Oral, Every 7 days, First dose on Fri08/24/24 at 1700, Until Discontinued, Routine 1700 (Canceled Entry - Provider: Automatic Discharge Provider - Comment: Automatically canceled at discontinue of medication order) warfarin (Coumadin) tablet 5 mg 5 mg, Oral, User specified (Once per day on Friday), First dose on Fri08/20/24 at 1700, Until Discontinued, Routine 1742 (Given - Provider: Kosta Dugan RN) 1648 (Given - Provider: Marilee Fabian RN) PRN Medication Order 08/22/2024 08/23/2024 08/24/2024 acetaminophen (Tylenol) tablet 650 mg 650 mg, Oral, Every 6 hours PRN, Starting on Fri08/17/24 at 2237, Until Fri08/24/24 at 1720, Routine, mild pain, moderate pain, headaches, fever 0046 (Given - Provider: Mary Hopper RN) 2232 (Given - Provider: Jennifer Carroll, EVITA) calcium carbonate (Tums) chewable tablet 500 mg 500 mg, Oral, 4 times daily PRN, Starting on 08/22/24 at 2111, Until Fri08/24/24 at 1720, Routine, indigestion, heartburn dextrose 50 % solution 12.5-25 g(Linked Group 4) 12.5-25 g, Intravenous, Every 15 min PRN, Starting on 08/14/24 at 1721, Until Fri08/24/24 at 1720, Routine, low blood sugar glucagon (human recombinant) injection 1 mg(Linked Group 4) 1 mg, Intramuscular, Every 15 min PRN, Starting on 08/14/24 at 1721, Until Fri08/24/24 at 1720, Routine, low blood sugar per Hypoglycemia Prevention and Treatment protocol glucose (Glutose) 40 % oral gel 15-30 grams of glucose(Linked Group 4) 15-30 grams of glucose, Sublingual, Every 15 min PRN, Starting on 08/14/24 at 1721, Until Fri08/24/24 at 1720, Routine, low blood sugar, per Hypoglycemia Prevention and Treatment protocol ipratropium-albuterol (Duo-Neb) 0.5-2.5 mg/3 mL nebulizer solution 3 mL 3 mL, Nebulization, Every 6 hours PRN, Starting on 08/15/24 at 0421, Until Fri08/24/24 at 1720, Routine, wheezing melatonin tablet 6 mg 6 mg, Oral, Nightly PRN, Starting on 08/14/24 at 2334, Until Fri08/24/24 at 1720, Routine, sleep 2117 (Given - Provider: Puja Le, EVITA) 2007 (Given - Provider: Jennifer Carroll RN) oxyCODONE (Roxicodone) immediate release tablet 5 mg 5 mg, Oral, Every 6 hours PRN, Starting on Lurdes 08/19/24 at 1107, Until Fri08/24/24 at 1720, Routine, moderate pain 0939 (Given - Provider: Kosta Dugan RN)2118 (Given - Provider: Puja Le RN) sodium chloride 0.9 % flush 10 mL(Linked Group 3) 10 mL, Intravenous, As needed, Starting on Fri08/14/24 at 1710, Until Fri08/24/24 at 1720, Routine, line care Linked Groups Order Group 1: Tiotropium [place] Monohydrate (Spiriva Respimat) 2.5 MCG/ACT inhaler 2 puffJump to med 2 puff, Inhalation, Daily, First dose on Fri08/16/24 at 1600, Until Discontinued And mometasone-formoterol (Dulera 100) 100-5 MCG/ACT inhaler 2 puffJump to med 2 puff, Inhalation, 2 times daily, First dose on Fri08/16/24 at 2100, Until Discontinued Group 2: ondansetron ODT (Zofran-ODT) disintegrating tablet 4 mg (COMPLETED)Jump to med 4 mg, Oral, Once, 1 dose, On Fri08/22/24 at 1130, Routine Or ondansetron (Zofran) injection 4 mg (COMPLETED) 4 mg, Intravenous, Once, 1 dose, On Fri08/22/24 at 1130, Routine Group 3: Insert peripheral IV (COMPLETED) Once, On Fri08/14/24 at 1711, For 1 occurrence And Saline lock IV (COMPLETED) Once, On Fri08/14/24 at 171, For 1 occurrence And sodium chloride 0.9 % flush 10 mLJump to med 10 mL, Intravenous, Every 12 hours, First dose on Fri08/14/24 at 1715, Until Discontinued, Routine And sodium chloride 0.9 % flush 10 mLJump to med 10 mL, Intravenous, As needed, Starting on Fri08/14/24 at 1710, Until Fri08/24/24 at 1720, Routine, line care Group 4: glucose (Glutose) 40 % oral gel 15-30 grams of glucoseJump to med 15-30 grams of glucose, Sublingual, Every 15 min PRN, Starting on Fri08/14/24 at 1721, Until Fri08/24/24 at 1720, Routine, low blood sugar, per Hypoglycemia Prevention and Treatment protocol Or dextrose 50 % solution 12.5-25 gJump to med 12.5-25 g, Intravenous, Every 15 min PRN, Starting on Fri08/14/24 at 1721, Until Fri08/24/24 at 1720, Routine, low blood sugar Or glucagon (human recombinant) injection 1 mgJump to med 1 mg, Intramuscular, Every 15 min PRN, Starting on 08/14/24 at 1721, Until Tu08/24/24 at 1720, Routine, low blood sugar per Hypoglycemia Prevention and Treatment protocol documented in this encounter Additional Health Concerns Assessment Noted Time PHQ-9 Depression Total Score: 8 07/22/19 9:23 AM EDT A fall risk assessment has been complete d for the patient 08/04/2024 10:41 AM EDT A Body Mass Index follow-up plan has been documented for the patient 08/24/2024 2:26 PM EDT documented as of this encounter Care Teams Supervisor Covering And Lining Relationship Specialty Start Date End Date Alisa Kunz DO [address] [place] [address] PCP - General Internal Medicine 03/13/21 Kodi Bustos DO [address] [place] [id number] Surgeon Cardiothoracic Surgery 11/06/22 Sujit Arriola MD [address] [place] [address] Consulting Physician Pulmonary Disease 11/06/22 Sujit Reyes MD [address] [place] [address] Referring Physician 12/04/22 Zully Caldwell, [employer]ARY[employer] [place] [place] [address] TCM Nurse 07/16/24 08/15/24 Ekaterina Gómez Engine Head Repairer Obstetrics Gynecology Physician 08/16/24 08/16/24 documented as of this encounter
--- OUTSIDE RECORDS SUMMARY | 2024-08-18 12:57 | XMS_ITS | Encounter Summary ---
Author Organization [facility] Address [address] [place] [address] Care Team Providers Care Chart Reader Name Role Phone Alisa Kunz Primary Care Provider [phone] Kodi Bustos DO Unavailable [phone] Sujit Arriola MD Unavailable [phone] Sujit Reyes MD Unavailable [phone] Reason for Visit * Reason Comments Shortness of Breath * Auth/Cert (Routine) Specialty Diagnoses / Procedures Referred By Contac t Referred To Contact Diagnoses Shortness of breath Pleural effusion Acute on chronic congestive heart failure, unspecified heart failure type (CMS/HCC) Acute on chronic hypoxic respiratory failure Arben Ibarra MD [address] [place] [address] Phone: tel: fax: [facility] H Inpatient [address] [place] [address] Phone: tel: Referral ID Status Reason Start Date Expiration Date Visits Re quested Visits Authorized [id number] 1 1 Encounter Details Date Type Department Care Team (Late st Contact Info) Description 08/18/2024 12:57 PM EDT - 08/18/2024 1:42 PM EDT Surgery Cardiac Pipe Fitter Apprentice [address] [place] [address] Brenden Zamora MD [address] [place] [address] Right heart catheterization Surgery Details Date/Time Status Location OR Service Patient Class Case Class Case Type Trauma Case? 08/18/2024 12:57 PM Posted [place] TRANSITION NURSE TRANSITION NURSE 04 Cardiovascular Inpatient E-Elect steven Panel 1 Procedure LRB Anes Op Region Wound Class Comments Right heart catheterization N/A Surgeon Surgeon Role Service Panel Brenden Zamora MD Primary Cardiovascular 1 Brenden Zamora MD Primary Cardiovascular 1 Caren Drake MD Fellow Cardiovascular 1 documented in this encounter Social History Tobacco Use Types Packs/Day Years [...] week 08/30/2022 How often do you attend [facility]? 1 to 4 times per year [...] Recorded Patient Health Questionnaire-2 Score 0 08/04/2024 [facility] - Occupational Stress Questionnaire Answer Date Recorded [...] place to sleep or slept in a long-term (including now)? No 12/30/2023 PHQ-9 Answer Date [...] any time in the past 12 m ont, were you homeless or living in a long-term (including now)? No 05/27/2024 Humiliation, Afraid, Rape, [...] the money to buy more. Never true 08/16/19 25 Within the past 12 months, t he food you bought just didn't last and you didn't have money to get more. Never true 08/15/2024 PRAPARE - Transportation Answer Date Re corded In the past 12 months, has l ack of transportation kept you from medical appointments or from getting medications? No 10/2024 In the past 12 months, has l ack of transportation kept you from meetings, work, or from getting things needed for daily living? No 08/15/2024 Housing Stability Vital Sign Answer Hong e Recorded In the last 12 months, was t here a time when you were not able to pay the mortgage or rent on time? No 08/15/2024 In the past 12 months, how m any times have you moved where you were living? 0 08/15/2024 At any time in the past 12 m [facility], were you homeless or living in a long-term (including now)? No 08/15/2024 CAGE ASSESSMENT Answer Date Recorded Cage unable [...] drink first t anselmo in the morning (EYE-INTRAVENOUS THERAPY NURSE) to steady your nerves or to get rid of a hangover? 0 08/14/2024 CAGE Questionnaire Score 0 025 Utilities Answer Date Recorded In the past 12 months has th e electric, gas, oil, or water company threatened to shut off services in your home? No 08/15/2024 PHQ-2A Answer Date Recorded Depression Risk 0 09/18/2022 Comments No Sex and Gender Information Value Date Recorded Sex Assigned at Female 11/01/2020 9:33 PM EDT Legal Sex Female 8:14 PM EDT Gender Identity Female 11/01/2020 9:33 PM EDT Sexual Orientation Straight 11/01/2020 9: 33 PM EDT documented as of this encounter Last Filed Vital Signs Vital Sign Reading Time Taken Comments Blood Pressure 131/66 08/18/2024 11:27 AM EDT Pulse 60 08/18/2024 11:27 AM EDT Temperature 36.6 C (97.8 F) 08/18/2024 11:27 AM EDT Respiratory Rate 21 08/18/2024 11:27 AM EDT Oxygen Saturation 99% 08/18/2024 11:27 AM EDT Inhaled Oxygen Concentration - - Weight 60.5 kg (133 lb 6.1 oz) 08/18/2024 6:00 A M EDT Height 162.6 cm (5' 4 ) 08/16/2024 7:12 AM EDT Body Mass Index 22.59 08/16/2024 7:12 AM EDT documented in this encounter Functional Status * Calculated C-SSRS Risk Score (Lifetime/Recent) Answer Date of Assessment Author No Risk Indicated 08/16/2024 8:00 PM EDT Daiana Marion RN * Question Answer Date of Assessment Author 1. Wish to be (Past 1 Month) No 025 8:00 PM EDT Daiana Marion RN 2. Non-Specific Active Suici dillon Thoughts (Past 1 Month) No 08/16/2024 8:00 PM EDT Mariely Marion RN 6. Suicidal Behavior (Lifetime) No 8:00 PM EDT Daiana Marion RN documented as of this encounter Medications [...] Taking 80mg total 90 capsule 3 03/23/2024 01/14/202 6 DULoxetine (Cymbalta) [address] capsule [...] Take 1 tablet by mouth every morning. clobetasol (Temovate) 0.05 % cream Apply 1 Application topically 2 times a day as needed. furosemide (Lasix) 40 MG tablet Take 1 tablet by mouth daily. 30 tablet 07/15/2024 hydroxychloroquine (Plaquenil) 200 MG tabletIndications: Systemic lupus erythematosus (SLE) in adult ([facility]) Take 1 tablet by mouth daily. 90 tablet 1 07/21/2024 mycophenolate (CellCept) 500 MG tabletIndications: Systemic lupus erythematosus (SLE) in adult ([facility]) Take 2 tablets by mouth 2 times a day. 120 tablet 08/24/2024 5 Pitavastatin Calcium (Livalo) 4 MG tabletIndications: Type 1 diabetes mellitus with other specified complication ([facility]),Dyslipid emia Take 1 tablet by mouth [...] MD PCP name and Address: Alisa Kunz [address] [address] Referring provider name and address: No referring [...] this encounter Procedures Cardiac catheterization Case Request Pipe Fitter Apprentice: Right heart catheterization Right heart catheterization (N/A) [...] Ellipta 200-62.5-25 MCG/ACT aerosol powder Generic drug: Tvznfqlbxsm-Pyqvzgjvt-Djftcp Inhale 1 puff 1 (one) time each [...] Your Medications These medications were sent to [facility] [place] [address] [place] [address] gabapentin 300 MG capsule These medications were sent to [facility] - [place], [place] - [address] [facility] [address] mycophenolate 500 MG tablet Discharge Diagnosis Medical Problems Active and Resolved Hospital Problems Hospital Type 1 diabetes mellitus with other specified complication (CMS/[facility]) Overview Addendum 01/05/2024 2:49 PM by [...] 125 mcg daily. SLE (systemic lupus erythematosus) (CMS/HCC) Overview Addendum 12/26/2022 9:45 AM by Alisa [...] Center 09/08/2024 11:20 AM Alisa Kunz DO [facility] 10/07/2024 4:00 PM [facility] 1 [facility] 10/14/2024 4:00 PM Lavern Shoemaker MD [facility] 10/27/2024 1:40 PM Anne-Marie Kolb, INSTITUTIONAL CUSTODIAN ENDOTFBNBR [place] 11/29/2024 10:20 AM Alisa Kunz, [facility] 02/02/2025 10:30 AM Sadiq Osborne MBBS [facility] Test Results Pending At Discharge Pending [...] Note Doron Felipe 74 y.o. female CSN: [id number] Admission: 08/14/2024 3:16 PM Primary Problem: Acute on chronic hypoxic respiratory failure Primary Fruit Or Nut Farmer: Primary Caregiver: Family Assistance Available at Discharge: Current Outpatient/Agency/Support Group: clinic(s), DME Availability of Care Givers (#Hours): 24 hours Family/Fruit Or Nut Farmer(s) Willingness Assessed to care for patient at home: Yes Family/Fruit Or Nut Farmer(s) Readiness Assessed to care for patient at [...] Medicare Second Notice Recieved By: patient Follow-up: Velmabecky Parmjit ([employer]igator) [phone] Follow up Provider for [facility] Discharge Transportation: Transportation Anticipated: family or friend [...] provided a number for Debbie Parnell ( [facility] [employer] Navigator) due to the concern that her family is unable to assist at times with transportation. Pt reported that she was comfortable with returning home, Pt reported knowing how to utilize [employer] Medicare transportation if needed and reported that her insurance provides certain amount transportation within a couple days after discharging from the hospital. No further services planned. Nathan Lima, QUANTITATIVE RESEARCH ANALYST, LEAD WEB DEVELOPER * Tk Alexander - 08/24/2024 12:37 PM EDT Images from the original note were not included. [id number] Pleural Effusion The pleura is a smooth [...] fainting Last Reviewed Date: 2023 00:00:00 ?? [id number] [employer]. All rights reserved. This information is not intended as a substitute for professional medical care. Always follow your healthcare professional's instructions. * Delilah HewittFHIR - Tk Hale - 08/24/2024 12:36 PM EDT Images from the original note were not included. [id number] Heart Failure What is heart failure? The [...] money problems,housing, access to food, and child protection specialist. If you can?t get to medical appointments, [...] weekends. Last Reviewed Date: 2022 00:00:00 ?? [id number] [employer]. All rights reserved. This information is not [...] therapy. Participants in Care Family/Caregiver Present: No Green Chain Operator: No Presentation Oxygen Oxygen Therapy: Supplemental oxygen [...] safety, along with improving upright activity tolerance. CRYSTALIZER OPERATOR provided cues to promote maximal independence and safety. Refer to sections below for further details. Bed Mobility Bed Mobility Interventions: Cues to initiate task. Bed Mobility Exam: Scooting/Bridging Level of Hastings: Modified independence Physical/Nonphysical Assist: Supervision Assistive Device: Bed rails Bed Mobility Exam: Supine to Sit Level of Hastings: Modified [place] Physical/Nonphysical Assist: HOB elevated, Set-up required Assistive Device: Bed rails Transfers Transfer Interventions: Provided cues for proper hand placement, BLE set-up, forward trunk leans toinitiate coming to stand, and safe descent to sit. Transfer Exam: Sit to stand Level of Hastings: Stand-by assist Physical/Nonphysical Assist: Set-up required, Verbal Cues, Nonverbal cues (demo/gestures) Assistive Device: Walker, rolling Transfer Exam: Stand to Sit Level of Hastings: Stand-by assist Physical/Nonphysical Assist: Set-up required, Verbal Cues, Nonverbal cues (demo/gestures) Assistive Device: Walker, rolling Transfer Exam: Bed to Chair/Chair to Bed Level of Hastings: (deferred and wanted to sit EOB instead) [...] for proper return of demonstration of exercises. CRYSTALIZER OPERATOR educated patient on HEP and encouraged her to perform 2-3 times daily. Access Code: [email or web address] URL: [email or web address] Date: 08/24/2024 Prepared by: Hugh Exercises - [...] agree with this document written by the physical laboratory assistant for this patient on this date/time. * Consults - Sandy Figueroa, DEREK - 08/24/2024 9:39 AM EDT Adult Nutrition Evaluation Note Doron Felipe 74 y.o. female CSN: [id number] Room/Bed 208/208C Nutrition evaluation type: follow-up Reason [...] (131 lb 9.8 oz) BMI (Calculated): 22.58 [place] Body Weight (kg): 54.5 Percent [place] Body Weight: 112 Wt Readings from Last [...] Regular Adult Carbohydrate Restriction: Consistent CHO 2 (5074-8108 Damon, 80 g/meal) Adult Sodium Restriction: 2,000 mg Na Percent Meals Eaten (%): avg 81% (08/15-08/19) Diet Experience and Nutrition History: Diet Education Provided: Will monitor Pertinent home medications: Reviewed. Amish needs: Nutrition Focused Physical Exam: Unable to [...] >/= 75% most meals Acuity Level: 2 Snady Figueroa, RD, LD [1] Past Medical History: Diagnosis Date 2018-nCoV acute respiratory disease 05/07/2022 Alcohol use Allergic 1973 Anemia Anxiety Arthritis Asthma Cellulitis 02/13/2024 Cellulitis of right leg 02/12/2024 CHF (congestive heart failure) ([facility]/HCC) Chronic respiratory failure 2019 Clotting disorder ([facility]) Congenital malformation COPD (chronic obstructive pulmonary disease) [...] - Was ableto get patient in with [facility] ophthalmology right after our clinic [...] CARDIAC PACEMAKER PLACEMENT N/A Pacemaker Placement from [facility] CARPAL TUNNEL RELEASE N/A Neuroplasty Decompression Median Nerve At Carpal Tunnel from [facility] CERVICAL BIOPSY W/ LOOP ELECTRODE EXCISION 2010 SECTION, CLASSIC 1976, 1979 SECTION, LOW TRANSVERSE N/A Section from [facility] COLONOSCOPY N/A Complete Colonoscopy from [facility] CORONARY ARTERY BYPASS GRAFT N/A CABG from [facility] EYE SURGERY N/A Eye Surgery from [facility] FRACTURE SURGERY SPINE SURGERY THORACENTESIS TOE SURGERY Left 02/07/2024 hematoma removal of upper skin on L big toe TONSILLECTOMY N/A Tonsillectomy from [facility] [3] Social History Tobacco Use Smoking status: [...] 125 mcg, Oral, q AM magic mouthwash diphen/lido/ppni-ics-akxvec, 15 mL, Swish & Spit, Before meals & nightly metoprolol succinate XL, 25 mg, Oral, Daily Tiotropium [place] Monohydrate, 2 puff, Inhalation, Daily AND mometasone- [...] only (use of w/c in community) Mobility [place] Independent gait with device History of Falls [...] shoulders and head. BED MOBILITY Level of Hastings Rolling/Turning Modified independence Scooting/Bridging Modified independence Supine to Sit Modified [place] Sit to Supine Modified independence TRANSFERS Level of Hastings Physical/Non-physical Assist AE Sit to Stand Stand-by [...] Weight shift posterior to midline Level of Hastings Balance Support Interventions Static Sit Standby assist [...] to ADLindependence. Pt verbalized understanding. Level of Hastings Interventions Feeding Independent, Setup Edge of bed [...] 08/16/24 2 weeks Post treatment OT educated greenhouse staff on patient ADL assist requirements, physical assist [...] effect on INR anticipated in 2-4 days Iraj FreemanD, [facility] Internal Medicine Clinical Pharmacist * Care Plan [...] Ongoing, Progressing * Progress Notes - Boby Rouse, INSTITUTIONAL CUSTODIAN - 08/23/2024 1:48 PM EDT Subjective No [...] again as needed. Boby Rouse APRN Pager: [phone] * Progress Notes - Tk Hale - [...] Home Anticipated discharge needs: None Family Contact: DustinRuthie francis FelipeDoron Madyson Hernandes Follow-up: PCP Cardiology Pulmonology Rheumatology Endocrinology Future Appointments Date Time Provider Department Center 09/08/2024 11:20 AM Alisa Kunz DO [facility] 10/07/2024 4:00 PM [facility] 1 [facility] 10/14/2024 4:00 PM Lavern Shoemaker MD [facility] 10/27/2024 1:40 PM [facility] Kolb [facility] 11/29/2024 10:20 AM Alisa Kunz DO [facility] 02/02/2025 10:30 AM Sadiq Osborne MBBS [facility] Tk Hale, MS4 Cosigned by Kenneth James MD at 08/23/2024 5:58 PM EDT Associated attestation - Kenneth James MD - 08/23/2024 5:58 PM EDT I saw and evaluated the patient with the medical/MORTGAGE CLOSING CLERK/PA student. I discussed the case with the medical/MORTGAGE CLOSING CLERK/PA student and agree with the findings and [...] Note Doron Felipe 74 y.o. female CSN: [id number] Admission: 08/14/2024 3:16 PM Primary Problem: Acute [...] recommending HH PT/OT, SW sent referrals via [facility] on 08/23/2024. SW will continue to follow-up with pt's MD and care team on their progress and discharge plan. Nathan Lima QUANTITATIVE RESEARCH ANALYST, LEAD WEB DEVELOPER * Progress Notes - Yvonne Carballo, PharmD [...] INR in 3-5 days Yvonne Carballo PharmD, [facility] Internal Medicine Clinical Pharmacist * Care Plan [...] Center 09/08/2024 11:20 AM [facility] 10/07/2024 4:00 PM [facility] E[facility] 1 [facility] 10/14/2024 4:00 PM Lavern Shoemaker MD [facility] 10/27/2024 1:40 PM Anne-Marie Kolb, INSTITUTIONAL CUSTODIAN [facility] 11/29/2024 10:20 AM Alisa Kunz DO [facility] 02/02/2025 10:30 AM Sadiq Osborne MBBS [facility] Tk Hale MS4 Cosigned by Kenneth James MD at 08/22/2024 3:48 PM EDT Associated attestation - Kenneth James MD - 08/22/2024 3:48 PM EDT I saw and evaluated the patient with the medical/MORTGAGE CLOSING CLERK/PA student. I discussed the case with the medical/MORTGAGE CLOSING CLERK/PA student and agree with the findings and [...] INR in 3-5 days Yvonne Carballo PharmD, [facility] Internal Medicine Clinical Pharmacist * Care Plan [...] to leave the chest tube in on - suction tand repeat CXR tomorrow morning #Hypokalemia, [...] effect on INR in 3-5 days Yvonne Carballo, PharmD, [facility] Internal Medicine Clinical Pharmacist * Care Plan [...] Center 09/08/2024 11:20 AM Alisa Kunz DO [facility] 10/07/2024 4:00 PM [facility] ECHO 1 [facility]G [facility] 10/14/2024 4:00 PM Lavern Shoemaker MD [facility] 10/27/2024 1:40 PM Anne-Marie Kolb APRN [facility] 11/29/2024 10:20 AM Alisa Kunz DO [facility] 02/02/2025 10:30 AM Sadiq Osborne MBBS [facility] Tk Hale MS4 Cosigned by Kenneth James MD at 08/20/2024 5:23 PM EDT Associated attestation - Kenneth James MD - 08/20/2024 5:23 PM EDT I saw and evaluated the patient with the medical/MORTGAGE CLOSING CLERK/PA student. I discussed the case with the medical/MORTGAGE CLOSING CLERK/PA student and agree with the findings and [...] only (use of w/c in community) Mobility [place] Independent gait with device History of Falls [...] to Physical Therapy treatment session. Visitors Present Green Chain Operator (if applicable) OBJECTIVE PAIN No complaints of [...] level of function. BED MOBILITY Level of Hastings Physical/Non- physical Assist Adaptive Equipment Utilized Rolling/ Turning Modified independence Bed rails Scooting/ Bridging Modified independence Bed rails Supine to Sit Modified [place] HOB elevated, Set-up required Bed rails Sit to Supine Modified independence Set-up required, HOB elevated Bed rails Interventions TRANSFERS Level of Hastings Physical/Non- physical Assist Adaptive Equipment Utilized Sit to Stand Contact guard Set-up required, Verbal Cues, Nonverbal cues (demo/gestures) Walker, rolling Stand to sit Contact guard Set-up required, Verbal Cues, Nonverbal cues (demo/gestures) Walker, rolling Bed to Chair Toilet Transfer Shower Transfer Interventions AMBULATION Level of Hastings Distance Adaptive Equipment Utilized Ambulation Contact guard [...] Weight shift posterior to midline Level of Hastings Balance Support Interventions Static Sit Standby assist Feet supported, Right upper extremity support, Left upper extremity support Dynamic Sit Standby assisst Feet supported Static Stand Contact guard Right upper extremity support, Left upper extremity support (rolling walker) Dynamic Stand Contact guard Right upper extremity support, Left upper extremity support (rolling walker) Lateral weight shifts, Anterior/Posterior weight shifts, Reaching for objects STANDARDIZED ASSESSMENTS [facility] 6-Clicks Mobility Assessment Difficulty patient has [...] 3-5 steps with a railing?: A lot [facility] 6-Clicks Mobility Assessment Total : 19 [...] 08/20/24 * Progress Notes - Edgar Harris Sofiya - 08/20/2024 1:05 PM EDT OCCUPATIONAL THERAPY [...] only (use of w/c in community) Mobility [place] Independent gait with device History of Falls [...] 13 Interventions Occupational therapist constructed a personal [employer] home exercises program for patient to assist [...] promote strengthening and maintaining flexibility. Access Code: [email or web address] URL: [email or web address] Date: 08/20/2024 Prepared by: Edgar Harris Exercises [...] - 10 reps BED MOBILITY Level of [place] Physical/Non-physical Assist Rolling/Turning Modified independence pt required [...] verbalized understanding. . Supine to Sit Modified [place] HOB elevated, Set-up required Pt provided instruction [...] b/l LE onto bed. TRANSFERS Level of [place] Physical/Non-physical Assist AE Sit to Stand Contact [...] Weight shift posterior to midline Level of Hastings Balance Support Interventions Static Sit Standby assist [...] to ADLindependence. Pt verbalized understanding. Level of Hastings Interventions Feeding Independent, Setup Bed level Grooming [...] 08/16/24 2 weeks Post treatment OT educated greenhouse staff on patient ADL assist requirements, physical assist [...] Note Doron Felipe 74 y.o. female CSN: [id number] Room/Bed 208/208C Nutrition evaluation type: assessment Reason for evaluation: [facility] course: 74 yo female who is followed [...] (134 lb 14.7 oz) BMI (Calculated): 23.15 [place] Body Weight (kg): 54.5 Percent [place] Body Weight: 112 Wt Readings from Last [...] Regular Adult Carbohydrate Restriction: Consistent CHO 2 (0968-6141 Damon, 80 g/meal) Adult Sodium Restriction: 2,000 mg Na Percent Meals Eaten (%): avg 81% (08/15-08/19) Diet Experience and Nutrition History: Diet Education Provided: Will monitor Pertinent home medications: Reviewed. Amish needs: Nutrition Focused Physical Exam: Unable to [...] right leg 02/12/2024 CHF (congestive heart failure) ([facility]) Chronic respiratory failure 2019 Clotting disorder ([facility]/HCC) Congenital malformation COPD (chronic obstructive pulmonary disease) ([facility]) 2018 Coronary artery disease CTS (carpal tunnel syndrome) Dental disease Depression Diabetes mellitus type I ([facility]) Disease of thyroid gland Eczema Fracture of left proximal fibula 04/09/2021 - Left proximal fibula fracture on 02/2021 after a mechanical fall. - Established with orthopedic surgery, no surgical intervention, WBAT. Heart disease Hepatitis B 1960 HL (hearing loss) Hypertension Hyperthyroidism 1960 Hypothyroidism 1960 Infectious viral hepatitis Myocardial infarction ([facility]/HCC) Peripheral neuropathy Pneumonia 06/01 Post-menopausal bleeding 05/08/2021 - Isolated episode of vaginal spotting in early 2021, no recurrence. Was evaluated with OBGYN in 10/2021, no intervention at this time, if recurrence of bleeding will likely require endometrial biopsy. 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 Scleritis. - Needs TH[place] eye exam. - Was ableto get patient in with [facility] ophthalmology right after our clinic [...] CARDIAC PACEMAKER PLACEMENT N/A Pacemaker Placement from [facility] CARPAL TUNNEL RELEASE N/A Neuroplasty Decompression Median Nerve At Carpal Tunnel from [facility] CERVICAL BIOPSY W/ LOOP ELECTRODE EXCISION 2010 SECTION, CLASSIC 1976, 1979 SECTION, LOW TRANSVERSE N/A Section from [facility] COLONOSCOPY N/A Complete Colonoscopy from [facility] CORONARY ARTERY BYPASS GRAFT N/A CABG from [facility] EYE SURGERY N/A Eye Surgery from [facility] FRACTURE SURGERY SPINE SURGERY THORACENTESIS TOE SURGERY Left 02/07/2024 hematoma removal of upper skin on L big toe TONSILLECTOMY N/A Tonsillectomy from [facility] [3] Social History Tobacco Use Smoking status: [...] 125 mcg, Oral, q AM magic mouthwash diphen/lido/zwdm-fbv-tgqwpp, 15 mL, Swish & Spit, Before meals & nightly magnesium oxide, 400 mg, Oral, Daily metoprolol succinate XL, 25 mg, Oral, Daily Tiotropium [place] Monohydrate, 2 puff, Inhalation, Daily AND mometasone- [...] No Patient Education : Neeru Carballo PharmD, [facility] Internal Medicine Clinical Pharmacist * Progress Notes - Rouse Boby Joel, INSTITUTIONAL CUSTODIAN - 08/20/2024 9:59 AM EDT Subjective No [...] 08/17/2024 Will continue to drain to - [id number] suction. - Will repeat chest x-ray tomorrow morning and consider chest tube removal. - Incentive Spirometry and mobilize/ out of bed as tolerated. This patient and plan of care has been discussed with Dr. Edward Bojorquez. Boby Rouse APRN Pager: [phone] * Nursing Note - Sujit Figueroa RN [...] Department Center 09/08/2024 11:20 AM Alisa Kunz [facility] 10/07/2024 4:00 PM [facility] E[facility] 1 E[facility]CHG [facility] 10/27/2024 1:40 PM Anne-Marie Kolb APRN ENDOTFBNBR [facility] 11/29/2024 10:20 AM Alisa Kunz DO [facility] 02/02/2025 10:30 AM Sadiq Osborne MB[facility] Tk Hale, MS4 Cosigned by Kenneth James MD at 08/19/2024 3:22 PM EDT Associated attestation - Kenneth James MD - 08/19/2024 3:22 PM EDT I saw and evaluated the patient with the medical/MORTGAGE CLOSING CLERK/PA student. I discussed the case with the medical/MORTGAGE CLOSING CLERK/PA student and agree with the findings and [...] medical record. * Progress Notes - Candace Bryan PharmD - 08/19/2024 12:42 PM EDT Antithrombosis [...] Hold Reason For Holding Warfarin: For procedure ([facility] 08/18) Bridging Agent in Conjunction With Warfarin? : No Patient Education : Incomplete Per team, still HOLDing warfarin today for procedure. Will continue to follow patient's clinical progress daily. Candace Bryan PharmD, [facility] Clinical Pharmacist - Internal Medicine Available via [employer] * Procedures - Boby Rouse APRN - [...] below level ofpatients chest and drain to -[id number] suction. After this intended time plan to place chest tube to -[id number] suction . Complications: None Recommendation Follow up chest x-ray tomorrow morning Avoid NSAIDS and steroids Drain to -[id number] suction * Progress Notes - Yue Zaragoza - 08/19/2024 10:48 AM EDT Case Management Adult Progress Note Doron Felipe 74 y.o. female CSN: [id number] Admission: 08/14/2024 3:16 PM Primary Problem: Acute [...] pleural effusions who initially presented to the [facility] with a chief complaint of progressively worsening [...] if further questions arise. Edgar Zaragoza MD [facility] * Progress Notes - Macho Diaz - [...] only (use of w/c in community) Mobility [place] Independent gait with device History of Falls [...] to Physical Therapy treatment session. Visitors Present Green Chain Operator (if applicable) OBJECTIVE PAIN Pt notes discomfort [...] level of function. BED MOBILITY Level of [place] Physical/Non- physical Assist Adaptive Equipment Utilized Rolling/ Turning Independent Bed rails Scooting/ Bridging Stand-by assist (to scoot towards EOB) Verbal Cues Supine to Sit Stand-by assist Verbal Cues Sit to Supine Stand-by assist Verbal Cues Interventions TRANSFERS Level of [place] Physical/Non- physical Assist Adaptive Equipment Utilized Sit to Stand Contact guard Set-up required, Verbal Cues, Nonverbal cues (demo/gestures) Walker, rolling Stand to sit Contact guard Set-up required, Verbal Cues, Nonverbal cues (demo/gestures) Walker, rolling Bed to Chair Toilet Transfer Shower Transfer Interventions AMBULATION Level of Hastings Distance Adaptive Equipment Utilized Ambulation Contact guard [...] Weight shift posterior to midline Level of Hastings Balance Support Interventions Static Sit Standby assist Feet supported, Right upper extremity support, Left upper extremity support Dynamic Sit Standby assisst Feet supported Static Stand Contact guard Right upper extremity support, Left upper extremity support (via RW) Dynamic Stand Contact guard Right upper extremity support, Left upper extremity support (RW) STANDARDIZED ASSESSMENTS [facility] 6-Clicks Mobility Assessment Difficulty patient has [...] 3-5 steps with a railing?: A lot [facility] 6-Clicks Mobility Assessment Total : 17 [...] and LRAD with modified RPE remaining below /10 08/16/24 2 weeks PT Goal 4: Patient [...] No Patient Education : Neeru Carballo PharmD, [facility] Internal Medicine Clinical Pharmacist * Progress Notes - Edgar Harris Sofiya - 08/18/2024 10:35 AM EDT OCCUPATIONAL THERAPY [...] only (use of w/c in community) Mobility [place] Independent gait with device History of Falls [...] shoulders and head. BED MOBILITY Level of [place] Physical/Non-physical Assist Rolling/Turning Independent pt is physically [...] b/l LE onto bed. TRANSFERS Level of [place] Physical/Non-physical Assist AE Sit to Stand Contact [...] Weight shift posterior to midline Level of [place] Balance Support Interventions Static Sit Standby assist [...] to ADLindependence. Pt verbalized understanding. Level of Hastings Interventions Feeding Independent, Setup Bed level Grooming [...] 08/16/24 2 weeks Post treatment OT educated greenhouse staff on patient ADL assist requirements, physical assist levels required, specialized techniques required for transfers, patients current pain levels upon conclusion ofsession, patients demeanor and overall performance with therapy. Therapist then answered all question RN and RN tech staff had. Written by Edgar Harris on 08/18/24 * Progress Notes - Alrefai, Tk - 08/18/2024 9:00 AM EDT Images from [...] Center 08/19/2024 1:30 PM Lavern Shoemaker MD [facility] 09/08/2024 11:20 AM Alisa Kunz [facility] 10/07/2024 4:00 PM [facility] ECHO 1 ECHOCHG [facility] 10/27/2024 1:40 PM Anne-Marie Kolb APRN ENDOTFKATRINBR [facility] 11/29/2024 10:20 AM Alisa Kunz [facility] 02/02/2025 10:30 AM Sadiq Osborne MBBS [facility] Associated attestation - Kenneth James MD - 08/18/2024 5:37 PM EDT I saw and evaluated the patient with the medical/MORTGAGE CLOSING CLERK/PA student. I discussed the case with the medical/MORTGAGE CLOSING CLERK/PA student and agree with the findings and plan as documented. I personally performed the Examand Medical Decision Making. Acute threat to life/bodily function: Acute hypoxic respiratory failure. High risk: Drug therapy requiring intensive monitoring for toxicity: Lasix, monitoring urine outputand electrolytes. * Progress Notes - Nasim Boby Joel, YAMILET - 08/18/2024 8:46 AM EDT Subjective [...] 08/17/2024 Will continue to drain to - [id number] suction. - Will repeat chest x-ray tomorrow morning and plan on right talc slurry chemical pleurodesis tomorrow 08/19/2024 at bedside. This patient and plan of care has been discussed with Dr. Edward Bojorquez. Boby Rouse APRN Pager: [phone] * Pre-Sedation Documentation - Edgar Zaragoza MD [...] been discussed with the patient and/or their international account representative. All questions answered and they agree [...] symptoms of hypoglycemia with patient * Care [place] - Ekaterina Pennington - 08/18/2024 2:09 AM [...] pleural effusions who initially presented to the [facility] with a chief complaint of progressively worsening shortness for breath. . Cardiology is being consulted for appropriateness of hemodynamic assessment with right heart catheterization. She has required therapeutic thoracentesis periodically. She follows with cardiology through [facility] as an outpatient last seen on 02/17/2024. [...] not a thrombus. Patient follows closely with [facility] EP cardiology who would like patient to [...] Every morning ezetimibe (ZETIA) 10 mg, Nightly Zajccdzzyqw-Mchhglfnt-Dkginm (Trelegy Ellipta) 200-62.5-25 MCG/ACT aerosol powder 1 [...] morning spironolactone (ALDACTONE) 6.25 mg, Oral, Daily Toukristinao SoloStar 14 Units, Subcutaneous, Every morning warfarin [...] y.o. female who initially presented to the [facility] for shortness of breath associated with pleural effusions, and Cardiology is being consulted for recommendations and management of coordination of the RHC. Patient has diuresed well. Chest tube placement. It is totally reasonable to obtain RHC to see if evaluated filling pressures are contributing to the pleural space fluid accumulation more than previously thought. Recommendations/Plan: - maintain accurate I/Os - NPO at [place] - plan for in and out RHC on 08/18/2024 - continue diuresis The following cardiovascular risk factors and co-morbidities complicates the management of these conditions: Fluid & Electrolyte Disorders - borderline controlled with the following disturbances: hypokalemia and hypomagnesemia This consult will be staffed with the following attending physician: Dr Zamora. Please page the on-call assistant merchandiser with any further questions. I spent 30 minutes performing the following components of the encounter (on the day of the encounter): reviewing History, examining the patient, reviewing imaging and/or labs, Independently interpreting echocardiogram, ECG and/or other imaging results, ordering tests or procedures, counseling the patient and family/caregiver, and communicating with other health manager intensive care unit. Greater than 50% of the time spent on the encounter was face to face providing direct patient care, counseling for the patient/caregiver, and care coordination. Edgar Zaragoza MD Fellow, Department of Cardiovascular Medicine [1] Past Medical History: Diagnosis Date 2019-nCoV acute respiratory disease 05/07/2022 Alcohol use Allergic 1973 Anemia Anxiety Arthritis Asthma Cellulitis 02/13/2024 Cellulitis of right leg 02/12/2024 CHF (congestive heart failure) ([facility]/HCC) Chronic respiratory failure 2019 Clotting disorder ([facility]/HCC) Congenital malformation COPD (chronic obstructive pulmonary disease) ([facility]/HCC) 2019 Coronary artery disease CTS (carpal tunnel syndrome) Dental disease Depression Diabetes mellitus type I ([facility]/HCC) Disease of thyroid gland Eczema Fracture of left proximal fibula 04/09/2021 - Left proximal fibula fracture on 02/2021 after a mechanical fall. - Established with orthopedic surgery, no surgical intervention, WBAT. Heart disease Hepatitis B 1960 HL (hearing loss) Hypertension Hyperthyroidism 1960 Hypothyroidism 1960 Infectious viral hepatitis Myocardial infarction ([facility]/HCC) Peripheral neuropathy Pneumonia 06/01 Post-menopausal bleeding 05/08/2021 - Isolated episode of vaginal spotting in early 2021, no recurrence. Was evaluated with OBGYN in 10/2021, no intervention at this time, if recurrence of bleeding will likely require endometrial biopsy. 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 Scleritis. - Needs [facility] eye exam. - Was ableto get patient in with [facility] ophthalmology right after our clinic [...] obstructive Stroke (CMS/HCC) Systemic lupus erythematosus, unspecified ([facility]/HCC) Lupus Varicella Visual impairment [2] Past Surgical History: Procedure Laterality Date ADENOIDECTOMY ADRENAL GLAND SURGERY ANKLE FRACTURE SURGERY BREAST BIOPSY Right 2013 u/s core benign CARDIAC PACEMAKER PLACEMENT N/A Pacemaker Placement from [facility] CARPAL TUNNEL RELEASE N/A Neuroplasty Decompression Median Nerve At Carpal Tunnel from [facility] CERVICAL BIOPSY W/ LOOP ELECTRODE EXCISION 2010 SECTION, CLASSIC 1976, 1979 SECTION, LOW TRANSVERSE N/A Section from [facility] COLONOSCOPY N/A Complete Colonoscopy from [facility] CORONARY ARTERY BYPASS GRAFT N/A CABG from [facility] EYE SURGERY N/A Eye Surgery from [facility] FRACTURE SURGERY SPINE SURGERY THORACENTESIS TOE SURGERY Left 02/07/2024 hematoma removal of upper skin on L big toe TONSILLECTOMY N/A Tonsillectomy from [facility] Cosigned by Brenden Zamora MD at 08/19/2024 [...] 0428 1.5 (H) HGB (g/dL) Date/Time Value 08/17/20248 10.1 (L) HCT (%) Date/Time Value 08/17/2024427 32.2 (L) Platelet Count (10*3/uL) Date/Time Value [...] No Patient Education : Neeru Carballo PharmD, [facility] Internal Medicine Clinical Pharmacist * Progress Notes - UzairjovanyTk teran - 08/17/2024 12:13 PM EDT Images from [...] Center 08/19/2024 1:30 PM Lavern Shoemaker MD [facility] 09/08/2024 11:20 AM Alisa Kunz [facility] 10/07/2024 4:00 PM [facility] ECHO 1 ECHOCHG [facility] 10/27/2024 1:40 PM [facility]b [facility] 11/29/2024 10:20 AM Alisa Kunz [facility] 02/02/2025 10:30 AM Sadiq Osborne MBBS [facility] Associated attestation - Kenneth James MD - 08/17/2024 4:37 PM EDT I saw and evaluated the patient with the medical/MORTGAGE CLOSING CLERK/PA student. I discussed the case with the medical/MORTGAGE CLOSING CLERK/PA student and agree with the findings and plan as documented. I personally performed the Examand Medical Decision Making. Acute threat to life/bodily function: Acute hypoxic respiratory failure. High risk: Drug therapy requiring intensive monitoring for toxicity: Lasix, monitoring urine outputand electrolytes. * Progress Notes - Boby Rouse, INSTITUTIONAL CUSTODIAN - 08/17/2024 10:47 AM EDT Subjective No [...] Dr. Edward Bojorquez. Boby Rouse APRN Pager: [phone] * Procedures - Boby Rouse APRN - [...] to water seal overnight then switch to -[id number] suction tomorrow morning. Hold NSAIDS and steroids [...] significant for SLE on Plaquenil followed by [facility], chronic bl pleural effusions, chronic hypoxic respiratory [...] Home Anticipated discharge needs: None Family Contact: DustinDiann francisDoron Rucker Follow-up: PCP Cardiology Pulmonology Rheumatology Future Appointments Date Time Provider Department Center 08/19/2024 1:30 PM Lavern Shoemaker MD [facility] 09/08/2024 11:20 AM Alisa Kunz DO [facility] 10/07/2024 4:00 PM [facility] ECHO 1 ECHOCHG [facility] 10/27/2024 1:40 PM Anne-Marie Kolb APRN ENDOTFBNBR [facility] 11/29/2024 10:20 AM Alisa Kunz DO [facility] 02/02/2025 10:30 AM Sadiq Osborne [facility] Associated attestation - Doron Thayer MD - 08/16/2024 6:59 PM EDT I saw and evaluated the patient with the medical/MORTGAGE CLOSING CLERK/PA student. I discussed the case with the medical/MORTGAGE CLOSING CLERK/PA student and agree with the findings and [...] negative results for MPO and GA-3. She corinne plaqunil and MMF. 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 Results Review {Vanishing Link Review Results :[id number] I have reviewed the latest lab and [...] Dr. Edward Bojorquez. Boby Rouse, YAMILET Pager: [phone] [1] Current Facility-Administered Medications Medication Dose Route [...] mg Oral Daily Arben Ibarra MD 25 mgat 08/16/24 0822 mycophenolate (Cellcept) capsule 1,000 mg 1,000 mg [...] from the original note were not included. [id number] Warfarin Brand Name(s): Coumadin??, Jantoven??; also available [...] doctor or pharmacist will give you the head of ethics and compliance's patient information sheet (Medication Guide) when you begin treatment with warfarin and each time you refill your prescription. Read the information carefully and ask your doctor or pharmacist if you have any questions. You can also visit the Food and Drug Administration (FDA) website (https://www.fda.gov/downloads/Drugs/DrugSafety/xva177172.pdf) or the head of ethics and compliance's website to obtain the Medication Guide. Talk [...] Echinacea, garlic, Ginkgo biloba, ginseng, goldenseal, and [place]'s wort; omeprazole (Prilosec); famotidine (Pepcid AC); aspirin [...] amounts of vitamin K-containing food on a hizo-ya-qsyd basis. Do not eat large amounts of [...] be awakened, immediately call emergency services at [phone]. Symptoms of overdose may include the following: [...] of all of the prescription and nonprescription (ksmr-lem-oprylgo) medicines you are taking, as well as [...] or pharmacist about specific clinical use. The [place] [employer] represents that the information provided hereunder was formulated with a reasonable standard of care, and in conformity with professional standards in the field. The [place] [employer] makes no representations or warranties, express or implied, including, but not limited to, any implied warranty of merchantability and/or fitness for a particular purpose, with respect to such information and specifically disclaims all such warranties. Users are advised that decisions regarding drug therapy are complex medical decisions requiring the independent, informed decision of an appropriate health emergency care tech, and the information is provided for informational purposes only. The entire monograph for a drug should be reviewed for a thorough understanding of the drug's actions, uses and side effects. The [place] [employer] does not endorse or recommend the use of any drug.The information is not a substitute for medical care. AHFS?? Patient Medication Information?. ?? Copyright, 2023. The [place] [employer]??, [address], [address], [place], [place]. All Rights Reserved. Duplication for commercial use must be authorized by [facility]. Selected Revisions: August 22, 2016. AHFS?? Patient Medication Information?. ?? Copyright, 2024 * Progress Notes - Yvonne Carballo PharmD - 08/16/2024 10:46 AM EDT Antithrombosis Stewardship Pharmacist to Dose Warfarin Management Doron Felipe is a 74 y.o. female who has been consulted for warfarin dosing and monitoring. Date INR Dose 08/14 2.6 hold for thoracentesis 08/15 2.2 hold for thoracentesis 08/16 2.2 hold for thoracentesis Current Hematologic Labs INR (no units) Date/Time Value 08/16/2024 0146 2.2 (H) HGB (g/dL) Date/Time Value 08/16/2024 0146 9.6 (L) HCT (%) Date/Time Value 08/16/2024 0146 29.6 (L) Platelet Count (10*3/uL) Date/Time Value 08/16/2024 0146 376 (H) Subjective Warfarin Indication: Atrial fibrillation [...] No Patient Education : Neeru Carballo PharmD, [facility] Internal Medicine Clinical Pharmacist * Progress Notes [...] congestive heart failure, unspecified heart failure type ([facility]) 3. Shortness of breath Procedures (if applicable) Past Medical History Patient has a past medical history of 2019-nCoV acute respiratory disease (05/07/2022), Alcohol use, Allergic (1972), Anemia, Anxiety, Arthritis, Asthma, Cellulitis (02/13/2024),Cellulitis of right leg (02/12/2024), CHF (congestive heart failure) ([facility]), Chronic respiratoryfailure (2019), Clotting disorder ([facility]), Congenital malformation, COPD (chronic obstructive pulmonary disease) ([facility]) (2018), Coronary artery disease, CTS (carpal tunnel syndrome), Dental disease, Depression, Diabetes mellitus type I ([facility]), Disease of thyroid gland, Eczema, Fracture of left proximal fibula (04/09/2021), Heart disease, Hepatitis B (1960), HL (hearing loss), Hypertension, Hyperthyroidism (1960), Hypothyroidism (1960), Infectious viral hepatitis, Myocardial infarction ([facility]), Peripheral neuropathy, Pneumonia (06/01), Post- menopausal bleeding (05/08/2021), Posterior circulation stroke ([facility]) (12/26/2022), Red eye (05/13/2022), Ringworm of body (04/09/2022), Seasonal allergies, Skin cancer (2023), Sleep apnea, obstructive, Stroke ([facility]), Systemic lupus erythematosus, unspecified ([facility]), Varicella, and Visual impairment. Past Surgical [...] Chair since being admitted to the hospital. Green Chain Operator (if applicable) HOME LIVING/SET-UP Lives With Spouse [...] only (use of w/c in community) Mobility [place] Independent gait with device History of Falls [...] Multi-Step Commands: Consistently Method of Communication Verbal ([place], hearing aids not present) Additional Observations MOTOR [...] Treatment Minutes 23 BED MOBILITY Level of [place] Physical/Non- physical Assist Adaptive Equipment Utilized Scooting/ Bridging Stand-by assist (to scoot towards EOB) Verbal Cues Bed rails Supine to Sit Stand-by assist Verbal Cues Bed rails Sit to Supine Stand-by assist Verbal Cues Bed rails Interventions PT cued for BLE sequencing toward edge of bed along with self monitoring of symptoms with positional changes. TRANSFERS Level of [place] Physical/Non- physical Assist Adaptive Equipment Utilized Sit [...] Weight shift posterior to midline Level of [place] Balance Support Interventions Static Sit Standby assist Feet supported, Right upper extremity support, Left upper extremity support Dynamic Sit Standby assisst Feet supported Static Stand Contact guard Right upper extremity support, Left upper extremity support (via RW) Dynamic Stand Contact guard Right upper extremity support, Left upper extremity support (RW) AMBULATION Level of [place] Distance Adaptive Equipment Utilized Ambulation Contact guard assist 50ft Rolling walker Comments Patient ambulates with functional dawn and forward flexed posture. PT cued for upright posture and educated on paced activity and therapeutic rest breaks with increased fatigue. Patient reported 9/10 modified RPE following ambulation. Vitals stable throughout. PT presence was necessary for: * monitoring patient vital sign stability STANDARDIZED ASSESSMENTS [facility] 6-Clicks Mobility Assessment Difficulty patient has [...] 3-5 steps with a railing?: A little [facility] 6-Clicks Mobility Assessment Total : 20 [...] congestive heart failure, unspecified heart failure type ([facility]/HCC) 3. Shortness of breath Procedures Past Medical History Patient has a past medical history of 2019-nCoV acute respiratory disease (05/07/2022), Alcohol use, Allergic (1972), Anemia, Anxiety, Arthritis, Asthma, Cellulitis (02/13/2024), Cellulitis of right leg (02/12/2024), CHF (congestive heart failure) ([facility]), Chronic respiratory failure (2019), Clotting disorder ([facility]), Congenital malformation, COPD (chronic obstructive pulmonary disease) ([facility]) (2018), Coronary artery disease, CTS (carpal tunnel syndrome), Dental disease, Depression, Diabetes mellitus type I ([facility]), Disease of thyroid gland, Eczema, Fracture of left proximal fibula (04/09/2021), Heart disease, Hepatitis B (1960), HL (hearing loss), Hypertension, Hyperthyroidism (1960), Hypothyroidism (1960), Infectious viral hepatitis, Myocardial infarction ([facility]), Peripheral neuropathy, Pneumonia (06/01), Post-menopausal bleeding (05/08/2021), Posterior circulation stroke ([facility]) (12/26/2022), Red eye (05/13/2022), Ringworm of body (04/09/2022), Seasonal allergies, Skin cancer (2023), Sleep apnea, obstructive, Stroke ([facility]), Systemic lupus erythematosus, unspecified([facility]), Varicella, and Visual impairment. Past Surgical [...] only (use of w/c in community) Mobility [place] Independent gait with device History of Falls [...] Multi-Step Commands: Consistently Method of Communication Verbal (AGUA CALIENTE, hearing aids not present) VISION Baseline Vision [...] Touch Sensation Intact BED MOBILITY Level of [place] Physical/Non-physical Assist Adaptive Equipment Utilized Scooting/ Bridging Stand-by assist (to scoot towards EOB) Verbal Cues Bed rails Supine to Sit Stand-by assist Verbal Cues Bed rails Sit to Supine Stand-by assist Verbal Cues Bed rails TRANSFERS Level of [place] Physical/Non-physical Assist Adaptive Equipment Utilized Sit to [...] Weight shift posterior to midline Level of [place] Balance Support Static Sit Standby assist Feet supported, Right upper extremity support, Left upper extremity support Dynamic Sit Standby assisst Feet supported Static Stand Contact guard Right upper extremity support, Left upper extremity support (via RW) Dynamic Stand Contact guard Right upper extremity support, Left upper extremity support (via RW) STANDARDIZED ASSESSMENTS [facility] 6-Click Daily Activities Help from Other: Don/Doff Regular Lower Body Clothings: Little Help From Other: Bathing: Little Help From Other: Toileting: Little Help From Other: Don/Doff Upper Body Clothings: Little Help From Other: Grooming: Little Help From Other: Eating Meals: None [facility] 6 Click - Daily Activities Score: 19 [...] needed areas of treatment space. Level of [place] Interventions Grooming SBA, Setup Edge of bed [...] and each exercise reviewed. Pt verbalized understanding. [employer] Access Details (if appropriate) Access Code: [email or web address] URL: [email or web address] Date: 08/16/24 Exercises Included - Seated Shoulder [...] Progressing * Progress Notes - Nathan Lima Isiah - 08/15/2024 3:17 PM EDT Case Management Adult Initial Progress Note Doron Felipe 74 y.o. female CSN: [id number] Admission: 08/14/2024 3:16 PM Primary Problem: Acute on chronic hypoxic respiratory failure Political Geographer reviewed chart and spoke with patient via phone to complete this Initial Case Management Assessment. PCP: Alisa Kunz DO Emergency Contact: Extended Emergency Contact Information Primary Emergency Contact: Ruthie Jamil Mobile Relation: Daughter Preferred language: Kuwaiti Green Chain Operator needed? No Secondary Emergency Contact: Doron Felipe Address: [address] [place] [address] Mobile Relation: Spouse Insurance: Primary Visit Coverage Payer Plan Sponsor Code Group Number Group Name [employer] REPLACEMENT [id number] Primary Visit Coverage Subscriber Subscriber ID Subscriber Name Subscriber SSN Subscriber Address [id number] DORON FELIPE [id number] [place] [address] [place] [address] Patient information: Primary Caregiver: Family Support System: Immediate family, Extended family Daily Living Activities: Functional Status: Maximum assistance Living Arrangements: Family Type of Residence: Private residence, Single Level [address] [place], [place] [address] [address] Smoker in the Home?: No Current DME: Equipment Currently Used at Home: wheelchair, manual, walker, rolling, oxygen, cane, straight, commode chair, shower chair Current DME Provider: Pt reported having HH previous with [facility]. Pt utilize [facility] for [phone] Income Information: Income Source: Retired Income/Expense Information: [...] previous with [facility]. Pt utilize [facility] for [phone] Living Will/Advance Directive/Power of [place] Captain /Guardian: Unable to assess: No Have you reviewed your Advance Directive and is it valid for this stay?: Yes Advance Directive: Patient has advance directive, copy in chart Type of Healthcare Directive: Durable power of estate attorney for health care Information Provided on Healthcare Directives: No Pre-existing DNR/DNI Order: No Patient Requests Assistance: No Additional Comments: SW introduced himself and CM role. Pt confirmed demographics, PCP, EC and insurance on face sheet are accurate. Pt lives at [address] [place] [address] with her Doron Felipe. Pt reported herhome [...] 02 at home that is provided by [facility]. [facility] number is [phone]/Address: [address] [place] [address]. Pt reported that she pays for Private Caregiver. Pt reported private caregiver name is Mrs. Quick.Pt reported that she utilize [facility] for HH services and reported to SW that she would like to utilize them again if needed. Preferred pharmacy- [facility] [place] [address] Pt's spouse /family to provide transportation upon discharge. Pt reported no issues with Housing, Food, Utilities, Transportation or Safety issues at this time. Pt reported their highest level of education is College. SW will continue to follow and assist as needed. Nathan Lima MSW, LEAD WEB DEVELOPER * Progress Notes - Tk Hale [...] Center 08/19/2024 1:30 PM Lavern Shoemaker MD [facility] 09/08/2024 11:20 AM Alisa Kunz, DO [facility] 10/07/2024 4:00 PM [facility] 1 [facility] 10/27/2024 1:40 PM Anne-Marie Kolb, INSTITUTIONAL CUSTODIAN ENDOTFBNBR [facility] 11/29/2024 10:20 AM Alisa Kunz, [facility] 02/02/2025 10:30 AM Sadiq Osborne MBBS [facility] Associated attestation - Doron Thayer MD - 08/15/2024 6:38 PM EDT I saw and evaluated the patient with the medical/MORTGAGE CLOSING CLERK/PA student. I discussed the case with the medical/MORTGAGE CLOSING CLERK/PA student and agree with the findings and [...] Note Doron Felipe 74 y.o. female CSN: [id number] Admission: 08/14/2024 3:16 PM Primary Problem: Acute [...] their progress and discharge plan. Nathan Lima, QUANTITATIVE RESEARCH ANALYST, LEAD WEB DEVELOPER * Hospital Course - Tk Hale [...] 2.2 (H) HGB (g/dL) Date/Time Value 08/15/2024 045 10.2 (L) HCT (%) Date/Time Value 08/15/2024451 31.2 (L) Platelet Count (10*3/uL) Date/Time Value 08/15/2024 045 419 (H) Subjective Warfarin Indication: Atrial fibrillation [...] clinical progress daily. Shawna Vences PharmD * H&Sona - Arben Ibarra MD - 08/14/2024 5:27 PM EDTAssociated Order(s): Consult to [facility] Consult to [facility] Medicine Ryan Consult performed by: Arben Ibarra MD Consult [...] Code Status Full Code Arben Ibarra MD [facility] Medicine [1] Social History Tobacco Use [...] Mother gracy otf neville COPD Mother gracy neville Alpha-1 antitrypsin deficiency Mother gracy neville Arthritis Father Doron Antunez Hypercholesterolemia Father [...] Complaint Patient presents with Shortness of Breath [facility] NOTE Doron Felipe is a 74 [...] patient after transfer to Main ED from [facility]. I personally performed my own history, ROS, and physical. I agree with the above [facility] documentation with the following additions/exceptions: Doron [...] chest pain, n/v. History provided by: Patient grinder brake lining used: No Patient History Past Medical History[1] [...] Ordering Provider 08/14/24 1447 [facility] 08/14/24 1447 Troponin now and 120 [facility] 08/14/24 1447 CBC w/diff STAT Final result [facility] 08/14/24 1447 [facility]/14/24 1447 XR Chest 1 View One time imaging In [facility]ERS 08/14/24 1427 EKG now - [...] - [1] Past Medical History: Diagnosis Date 2019-nCoV acute respiratory disease 05/07/2022 Alcohol use Allergic 1973 Anemia Anxiety Arthritis Asthma Cellulitis 02/13/2024 Cellulitis of right leg 02/12/2024 CHF (congestive heart failure) (CMS/HCC) Chronic respiratory failure 2020 Clotting disorder ([facility]/HCC) Congenital malformation COPD (chronic obstructive pulmonary disease) (CMS/HCC) 2019 Coronary artery disease CTS (carpal tunnel syndrome) Dental disease Depression Diabetes mellitus type I ([facility]) Disease of thyroid gland Eczema Fracture [...] - Was ableto get patient in with [facility] ophthalmology right after our clinic [...] CARDIAC PACEMAKER PLACEMENT N/A Pacemaker Placement from [facility] CARPAL TUNNEL RELEASE N/A Neuroplasty Decompression Median Nerve At Carpal Tunnel from [facility] CERVICAL BIOPSY W/ LOOP ELECTRODE EXCISION 2010 SECTION, CLASSIC 1976, 1979 SECTION, LOW TRANSVERSE N/A Section from [facility] COLONOSCOPY N/A Complete Colonoscopy from [facility] CORONARY ARTERY BYPASS GRAFT N/A CABG from [facility] EYE SURGERY N/A Eye Surgery from [facility] FRACTURE SURGERY SPINE SURGERY THORACENTESIS TOE SURGERY Left 02/07/2024 hematoma removal of upper skin on L big toe TONSILLECTOMY N/A Tonsillectomy from [facility] [3] Family History Problem Relation Name Age of Onset Conversions - Other Mother gracy otf neville Goiter (Diffuse Nontoxic) Heart disease Mother gracy otf neville Hypertension Mother gracy otf ne[place] Stroke Mother gracy celsaer alfredito kelin COPD Mother gracy otf ne[place] Alpha-1 antitrypsin deficiency Mother gracy otf [place] Arthritis Father Doron Antunez Hypercholesterolemia Father Doron Antunez Obesity Father Doron Antunez COPD Father Doron Antunez Alcohol abuse Father Doron Antunez Diabetes Sibling Cancer Other Doron E Alfredito Conversions - Other Other Goiter (Diffuse Nontoxic) Heart disease Other Gracy Marry Otf Neville [4] Tobacco Use Smoking status: Never Passive [...] documented. * ED Triage Notes - Odilia Riggs, RN - 08/14/2024 2:23 PM EDT Patient arrives w/ c/o increasing SOA over past few weeks. States she feels like her lungs are filling back up with fluid. Wears 4L NC baseline. PMH: CHF Lupus documented in this encounter Plan of Treatment Upcoming Encounters Date Type Department Care Team (Late st Contact Info) Description 10/07/2024 12:50 PM EDT Office Visit [facility] Otolaryngology [address] [place] [address] Chris Pepe MD [address] [place] [address] 10/07/2024 4:00 PM EDT Appointment Cardiac Imaging [address] [place] [address] 10/14/2024 11:00 AM EDT Office Visit [facility] Medicine Specialties [address] [place] [address] Cristian Zimmer MD [address] [place] [address] 10/18/2024 7:40 AM EDT Office Visit [facility] Internal Medicine [address] [place] [address] Alisa Kunz DO [address] [place] [address] 10/25/2024 10:00 AM EDT Office Visit [facility] Nephrology, Bone & Mineral Metabolism [address], [address] [place] [address] Bryon Brandon MD [address] [place] [address] 10/27/2024 1:40 PM EDT Office Visit [facility] Endocrinology [address] [place] [address] Anne-Marie Kolb L, INSTITUTIONAL CUSTODIAN [address] [place] [address] 02/02/2025 8:40 AM EST Office Visit [facility] Internal Medicine [address] [place] [address] Alisa Kunz, DO [address] [place] [address] Scheduled Referrals Name Type Priority Associated Diagnoses Order Schedule Discharge Ambulatory referral to [facility] Health Outpatient Referral Routine Pleural effusion 1 [...] - 99 mg/dL 08/24/2024 11:44 AM EDT [facility] Comment:Accuracy of a glucos e result [...] for testing. Comment 08/24/2024 11:44 AM EDT [facility] Mild Disabilities Teacher ID Partha Zhu 08/25/19 11:44 AM EDT HEALTH[facility]ARE LAB Device ID [id number] 08/24/2024 11:44 AM EDT [facility] Specimen Type POC Capillary 08/24/2024 11:44 AM EDT [facility] Blood Capillary blood specimen / Unknown 08/24/2024 11:36 AM EDT 08/24/2024 11:44 AM EDT us Doron Thayer MD LAB POINT OF CARE TE ST DOCKED DEVICE UNSOLICITED RESULTS Final Result Performing Organization Address [facility] Co de Phone Number HEALTHCARE LAB [address] [place] [address] * (ABNORMAL) POCT glucose meter (08/24/2024 7:37 AM EDT) POCT Glucose 440(H) 74 - 99 mg/dL 08/24/2024 7:41 AM EDT [facility]ARE [facility] Comment:Accuracy of a [...] Comment 08/24/2024 7:41 AM EDT [facility]ALTH[facility]ARE LAB Mild Disabilities Teacher ID Partha Zhu 08/25/19 7:41 AM EDT HEALTHCARE LAB Device ID [id number] 08/24/2024 7:41 AM EDT [facility] Specimen Type POC Capillary 08/24/2024 7:41 AM EDT [facility]ALTH[facility]ARE [facility] Blood Capillary blood specimen / Unknown 08/24/2024 7:37 AM EDT 08/24/2024 7:41 AM EDT us Dorno Thayer MD LAB POINT OF CARE TE ST DOCKED DEVICE UNSOLICITED RESULTS Final Result Performing Organization Address City/[facility] Co de Phone Number HEALTHCARE LAB [address] [place] [address] * (ABNORMAL) Prothrombin Time/INR (08/24/2024 3:43 AM EDT) Prothrombin Time 16.6(H) 12.0 - 14.3 sec LAB COAGULATION METHOD 08/24/2024 4:04 AM EDT [facility] INR 1.3(H) 0.9 - 1.1 LAB COAGULATION METHOD 08/24/2024 4:04 AM EDT [facility] Blood Venous blood specimen / Unknown Venipuncture / Unknown 08/24/2024 3:43 AM EDT 08/24/2024 3:48 AM EDT [facility] - 08/24/2024 4:04 AM EDT OPTIMAL INR RANGES FOR PATIENT ON ORAL ANTICOAGULANT THERAPY Prevention of venous thromboembolism INR 2.0 to 3.0 In patients with heart disease: Atrial fibrillation INR 2.0 to 3.0 Valvular heart disease INR 2.0 to 3.0 Tissue heart valves INR 2.0 to 3.0 Mechanical prosthetic valves INR 2.5 to 3.[address] INR 2.5 to 3.5 us Kenneth James MD LAB BLOOD ORDERABLES Final Res ult [facility] [address] [place] [address] * (ABNORMAL) Basic metabolic panel (08/24/2024 3:43 AM EDT) Glucose, Plasma 327(H) 74 - 99 mg/dL 08/24/2024 4:22 AM EDT [facility] BUN, Plasma 33(H) 8 - 23 mg/dL 08/24/2024 4:22 AM EDT [facility] Creatinine, Plasma 1.02 0.60 - 1.10 mg/dL 08/24/2024 4:22 AM EDT [facility] BUN/Creatinine Ratio 32 08/24/2024 4:22 AM EDT [facility] Sodium, Plasma 128(L) 136 - 145 mmol/L 08/24/2024 4:22 AM EDT [facility] Potassium, Plasma 4.1 3.6 - 4.9 mmol/L 08/24/2024 4:22 AM EDT [facility] Chloride, Plasma 90(L) 97 - 107 mmol/L 08/24/2024 4:22 AM EDT [facility] CO2, Plasma 27 22 - 29 mmol/L 08/24/2024 4:22 AM EDT [facility] Anion Gap 11 6 - 16 mmol/L 08/24/2024 4:22 AM EDT [facility] Total Calcium, Plasma 8.6(L) 8.9 - 10.2 mg/dL 08/24/2024 4:22 AM EDT [facility] eGFRcr 58.2 mL/min/1.7 3m*2 08/24/2024 4:22 AM EDT [facility] Comment:Reported eGFRcr in m L/min/1.73m2 is based the CKD-EPI 2020 equation that does not use a race coefficient. Blood Venous blood specimen / Unknown Venipuncture / Unknown 08/24/2024 3:43 AM EDT 08/24/2024 3:49 AM EDT us Kenneth James MD LAB BLOOD ORDERABLES Final Res ult [facility] [address] [place] [address] * POCT glucose meter (08/23/2024 7:09 PM EDT) POCT Glucose 96 74 - 99 mg/dL 08/23/2024 7:11 PM EDT [facility]ALTH[facility]ARE [facility] Comment:Accuracy of a [...] Comment 08/23/2024 7:11 PM EDT [facility]ARE [facility] Mild Disabilities Teacher ID Veronica Kellogg 025 7:11 PM EDT HEALTHCARE LAB Device ID [id number] 08/23/2024 7:11 PM EDT [facility] Specimen Type POC Capillary 08/23/2024 7:11 PM EDT [facility] Blood Capillary blood specimen / Unknown 08/23/2024 7:09 PM EDT 08/23/2024 7:11 PM EDT Kenneth James MD LAB POINT OF CARE TE ST DOCKED DEVICE UNSOLICITED RESULTS Final Result Performing Organization Address [facility] Co de Phone Number [facility] [address] [place] [address] * (ABNORMAL) POCT glucose meter (08/23/2024 3:58 PM EDT) [facility] [address] POCT Glucose 123(H) 74 - 99 mg/dL [...] Comment 08/23/2024 4:04 PM EDT [facility]ALTH[facility]ARE LAB Mild Disabilities Teacher ID Guillermo Marquez 08/24/19 4:04 PM EDT [facility] Device ID [id number] 08/23/2024 4:04 PM EDT [facility]ARE [facility] Specimen Type POC Capillary 08/23/2024 4:04 PM EDT [facility] Blood Capillary blood specimen / Unknown 08/23/2024 3:58 PM EDT 08/23/2024 4:04 PM EDT Kenneth James MD LAB POINT OF CARE TE ST DOCKED DEVICE UNSOLICITED RESULTS Final Result Performing Organization Address City/[facility]/ZIP Co de Phone Number [facility] [address] [place] [address] * XR Chest 1 View (08/23/2024 2:20 [...] MD on 08/23/2024 2:22 PM Boby Rouse INSTITUTIONAL CUSTODIAN IMG XR PROCEDURES Final Res ult * [...] for testing. Comment 08/23/2024 11:43 AM EDT [facility] Mild Disabilities Teacher ID Marilee Fabian 08/23/2024 11:43 AM EDT [facility] Device ID [id number] 08/23/2024 11:43 AM EDT HEALTH[facility]ARE LAB Specimen Type POC Capillary 08/23/2024 11:43 AM EDT [facility] Blood Capillary blood specimen / Unknown 08/23/2024 11:41 AM EDT 08/23/2024 11:43 AM EDT Kenneth James MD LAB POINT OF CARE TE ST DOCKED DEVICE UNSOLICITED RESULTS Final Result Performing Organization Address [facility] Co de Phone Number [facility]ALTH[facility]ARE [facility] [address] [place] [address] * (ABNORMAL) POCT glucose meter (08/23/2024 7:37 AM EDT) Pathologist [facility] POCT Glucose 156(H) 74 - 99 mg/dL [...] Comment 08/23/2024 7:38 AM EDT [facility]ALTH[facility]ARE [facility] Mild Disabilities Teacher ID Marjorie Cortez 08/24/19 7:38 AM EDT HEALTHCARE LAB Device ID [id number] 08/23/2024 7:38 AM EDT [facility] Specimen Type POC Capillary 08/23/2024 7:38 AM EDT [facility] Blood Capillary blood specimen / Unknown 08/23/2024 7:37 AM EDT 08/23/2024 7:38 AM EDT Kenneth James MD LAB POINT OF CARE TE ST DOCKED DEVICE UNSOLICITED RESULTS Final Result Performing Organization Address City/[facility]/ZIP Co de Phone Number [facility]ALTHCARE [facility] [address] [place] [address] * (ABNORMAL) Prothrombin Time/INR (08/23/2024 3:19 AM EDT) Prothrombin Time 14.4(H) 12.0 - 14.3 sec LAB COAGULATION METHOD 08/23/2024 3:56 AM EDT [facility] INR 1.1 0.9 - 1.1 LAB COAGULATION METHOD 08/23/2024 3:56 AM EDT [facility] Blood Venous blood specimen / Unknown Venipuncture / Unknown 08/23/2024 3:19 AM EDT 08/23/2024 3:25 AM EDT Narrative [facility] - 08/23/2024 3:56 AM EDT OPTIMAL INR RANGES FOR PATIENT ON ORAL ANTICOAGULANT THERAPY Prevention of venous thromboembolism INR 2.0 to 3.0 In patients with heart disease: Atrial fibrillation INR 2.0 to 3.0 Valvular heart disease INR 2.0 to 3.0 Tissue heart valves INR 2.0 to 3.0 Mechanical prosthetic valves INR 2.5 to 3.[address] INR 2.5 to 3.5 us Kenneth James MD LAB BLOOD ORDERABLES Final Res ult [facility] [address] [place] [address] * (ABNORMAL) Basic metabolic panel (08/23/2024 3:19 AM EDT) Glucose, Plasma 250(H) 74 - 99 mg/dL 08/23/2024 4:06 AM EDT [facility] BUN, Plasma 28(H) 8 - 23 mg/dL 08/23/2024 4:06 AM EDT [facility] Creatinine, Plasma 1.05 0.60 - 1.10 mg/dL 08/23/2024 4:06 AM EDT [facility] BUN/Creatinine Ratio 27 08/23/2024 4:06 AM EDT [facility] Sodium, Plasma 128(L) 136 - 145 mmol/L 08/23/2024 4:06 AM EDT [facility] Potassium, Plasma 4.2 3.6 - 4.9 mmol/L 08/23/2024 4:06 AM EDT [facility] Chloride, Plasma 90(L) 97 - 107 mmol/L 08/23/2024 4:06 AM EDT [facility] CO2, Plasma 31(H) 22 - 29 mmol/L 08/23/2024 4:06 AM EDT [facility] Anion Gap 7 6 - 16 mmol/L 08/23/2024 4:06 AM EDT [facility] Total Calcium, Plasma 9.0 8.9 - 10.2 mg/dL 08/23/2024 4:06 AM EDT [facility] eGFRcr 56.2 mL/min/1.7 3m*2 08/23/2024 4:06 AM EDT [facility] Comment:Reported eGFRcr in m L/min/1.73m2 is based the CKD-EPI 2020 equation that does not use a race coefficient. Blood Venous blood specimen / Unknown Venipuncture / Unknown 08/23/2024 3:19 AM EDT 08/23/2024 3:25 AM EDT us Kenneth James MD LAB BLOOD ORDERABLES Final Res ult Performing Organization Address City/[facility] Co de Phone Number [facility] [address] [place] [address] * (ABNORMAL) POCT glucose meter (08/23/2024 3:08 [...] Comment 08/23/2024 3:09 AM EDT [facility]ALTH[facility]ARE [facility] Mild Disabilities Teacher ID Karson Kaufman 08/24/19 25 3:09 AM EDT HEALTHCARE LAB Device ID [id number] 08/23/2024 3:09 AM EDT [facility]ALTH[facility]ARE [facility] Specimen Type POC Capillary 08/23/2024 3:09 AM EDT [facility] Blood Capillary blood specimen / Unknown 08/23/2024 3:08 AM EDT 08/23/2024 3:09 AM EDT us Kenneth James MD LAB POINT OF CARE TE ST DOCKED DEVICE UNSOLICITED RESULTS Final Result Performing Organization Address City/[facility]/ZIP Co de Phone Number [facility] [address] [place] [address] * (ABNORMAL) POCT glucose meter (08/22/2024 9:36 PM EDT) [facility] [address] POCT Glucose 299(H) 74 - 99 mg/dL [...] for testing. Comment 08/22/2024 9:37 PM EDT [facility] Mild Disabilities Teacher ID Le Puja 08/22/2024 9:37 PM EDT [facility] Device ID [id number] 08/22/2024 9:37 PM EDT [facility] Specimen Type POC Capillary 08/22/2024 9:37 PM EDT [facility] Blood Capillary blood specimen / Unknown 08/22/2024 9:36 PM EDT 08/22/2024 9:37 PM EDT Kenneth James MD LAB POINT OF CARE TE ST DOCKED DEVICE UNSOLICITED RESULTS Final Result [facility] [address] [place] [address] * (ABNORMAL) POCT glucose meter (08/22/2024 8:19 PM EDT) [facility] [address] POCT Glucose 248(H) 74 - 99 mg/dL [...] 08/22/2024 8:20 PM EDT [facility] Mild Disabilities Teacher ID Karson Kaufman 08/23/19 8:20 PM EDT [facility] Device ID [id number] 08/22/2024 8:20 PM EDT [facility]ALTH[facility]ARE [facility] Specimen Type POC Capillary 08/22/2024 8:20 PM EDT [facility] Blood Capillary blood specimen / Unknown 08/22/2024 8:19 PM EDT 08/22/2024 8:20 PM EDT us Kenneth James MD LAB POINT OF CARE TE ST DOCKED DEVICE UNSOLICITED RESULTS Final Result [facility] [address] [place] [address] * (ABNORMAL) Basic metabolic panel (08/22/2024 5:53 PM EDT) Glucose, Plasma 102(H) 74 - 99 mg/dL 08/22/2024 6:38 PM EDT [facility] BUN, Plasma 29(H) 8 - 23 mg/dL 08/22/2024 6:38 PM EDT [facility] Creatinine, Plasma 1.11(H) 0.60 - 1.10 mg/dL 08/22/2024 6:38 PM EDT [facility] BUN/Creatinine Ratio 26 08/22/2024 6:38 PM EDT [facility] Sodium, Plasma 138 136 - 145 mmol/L 08/22/2024 6:38 PM EDT [facility] Potassium, Plasma 4.5 3.6 - 4.9 mmol/L 08/22/2024 6:38 PM EDT [facility] Chloride, Plasma 96(L) 97 - 107 mmol/L 08/22/2024 6:38 PM EDT [facility] CO2, Plasma 30(H) 22 - 29 mmol/L 08/22/2024 6:38 PM EDT [facility] Anion Gap 12 6 - 16 mmol/L 08/22/2024 6:38 PM EDT [facility] Total Calcium, Plasma 9.1 8.9 - 10.2 mg/dL 08/22/2024 6:38 PM EDT [facility] eGFRcr 52.6 mL/min/1.7 3m*2 08/22/2024 6:38 PM EDT [facility] Comment:Reported eGFRcr in m L/min/1.73m2 is based the CKD-EPI 2020 equation that does not use a race coefficient. Blood Venous blood specimen / Unknown Venipuncture / Unknown 08/22/2024 5:53 PM EDT 08/22/2024 5:58 PM EDT Kenneth James MD LAB BLOOD ORDERABLES Final Res ult [facility] [address] [place] [address] * (ABNORMAL) POCT glucose meter (08/22/2024 5:46 PM EDT) POCT Glucose 102(H) 74 - 99 mg/dL 08/22/2024 5:47 PM EDT [facility]ALTH[facility] Comment:Accuracy of a [...] for testing. Comment 08/22/2024 5:47 PM EDT [facility]ALTH[facility]ARE [facility] Mild Disabilities Teacher ID Kosta Dugan 08/23/19 5:47 PM EDT [facility] Device ID [id number] 08/22/2024 5:47 PM EDT [facility] Specimen Type POC Capillary 08/22/2024 5:47 PM EDT [facility] Blood Capillary blood specimen / Unknown 08/22/2024 5:46 PM EDT 08/22/2024 5:47 PM EDT Kenneth James MD LAB POINT OF CARE TE ST DOCKED DEVICE UNSOLICITED RESULTS Final Result [facility] [address] [place] [address] * POCT glucose meter (08/22/2024 4:25 PM EDT) POCT Glucose 78 74 - 99 mg/dL [...] Comment 08/22/2024 4:26 PM EDT [facility] Mild Disabilities Teacher ID La Tracey 08/22/2024 4:26 PM EDT [facility] Device ID [id number] 08/22/2024 4:26 PM EDT [facility] Specimen Type POC Capillary 08/22/2024 4:26 PM EDT [facility] Blood Capillary blood specimen / Unknown 08/22/2024 4:25 PM EDT 08/22/2024 4:26 PM EDT Kenneth James MD LAB POINT OF CARE TE ST DOCKED DEVICE UNSOLICITED RESULTS Final Result Performing Organization Address City/State/[facility] Co de Phone Number [facility]ARE [facility] [address] [place] [address] * XR Chest 1 View (08/22/2024 11:31 [...] Comment 08/22/2024 11:20 AM EDT [facility] Mild Disabilities Teacher ID AlexyLa 08/22/2024 11:20 AM EDT [employer] [facility] Device ID [id number] 08/22/2024 11:20 AM EDT [facility] Specimen Type POC Capillary 08/22/2024 11:20 AM EDT [facility] Blood Capillary blood specimen / Unknown 08/22/2024 11:18 AM EDT 08/22/2024 11:20 AM EDT Kenneth James MD LAB POINT OF CARE TE ST DOCKED DEVICE UNSOLICITED RESULTS Final Result [facility] [address] [place] [address] * (ABNORMAL) POCT glucose meter (08/22/2024 7:30 [...] Comment 08/22/2024 7:32 AM EDT [facility] Mild Disabilities Teacher ID La Tracey 08/22/2024 7:32 AM EDT [facility] Device ID [id number] 08/22/2024 7:32 AM EDT [facility] Specimen Type POC Capillary 08/22/2024 7:32 AM EDT [facility] Blood Capillary blood specimen / Unknown 08/22/2024 7:30 AM EDT 08/22/2024 7:32 AM EDT us Kenneth James MD LAB POINT OF CARE TE ST DOCKED DEVICE UNSOLICITED RESULTS Final Result Performing Organization Address City/State/[facility] Co de Phone Number [facility]ARE [facility] [address] [place] [address] * (ABNORMAL) Prothrombin Time/INR (08/22/2024 6:01 AM EDT) [facility] [address] Prothrombin Time 14.4(H) 12.0 - 14.3 sec LAB COAGULATION METHOD 08/22/2024 6:28 AM EDT [facility] INR 1.1 0.9 - 1.1 LAB COAGULATION METHOD 08/22/2024 6:28 AM EDT [facility] Blood Venous blood specimen / Unknown Venipuncture / Unknown 08/22/2024 6:01 AM EDT 08/22/2024 6:08 AM EDT Narrative [facility] - 08/22/2024 6:28 AM EDT OPTIMAL INR RANGES FOR PATIENT ON ORAL ANTICOAGULANT THERAPY Prevention of venous thromboembolism INR 2.0 to 3.0 In patients with heart disease: Atrial fibrillation INR 2.0 to 3.0 Valvular heart disease INR 2.0 to 3.0 Tissue heart valves INR 2.0 to 3.0 Mechanical prosthetic valves INR 2.5 to 3.[address] INR 2.5 to 3.5 us Kenneth James MD LAB BLOOD ORDERABLES Final Res ult [facility] [address] [place] [address] * (ABNORMAL) Basic Metabolic Panel, Plasma (08/22/2024 4:46 AM EDT) Glucose, Plasma 276(H) 74 - 99 mg/dL 08/22/2024 5:50 AM EDT [facility] BUN, Plasma 30(H) 8 - 23 mg/dL 08/22/2024 5:50 AM EDT [facility] Creatinine, Plasma 0.94 0.60 - 1.10 mg/dL 08/22/2024 5:50 AM EDT [facility] BUN/Creatinine Ratio 32 08/22/2024 5:50 AM EDT [facility] Sodium, Plasma 127(L) 136 - 145 mmol/L 08/22/2024 5:50 AM EDT [facility] Potassium, Plasma 4.4 3.6 - 4.9 mmol/L 08/22/2024 5:50 AM EDT [facility] Chloride, Plasma 88(L) 97 - 107 mmol/L 08/22/2024 5:50 AM EDT [facility] CO2, Plasma 25 22 - 29 mmol/L 08/22/2024 5:50 AM EDT [facility] Anion Gap 14 6 - 16 mmol/L 08/22/2024 5:50 AM EDT [facility] Total Calcium, Plasma 9.3 8.9 - 10.2 mg/dL 08/22/2024 5:50 AM EDT [facility] eGFRcr 64.2 mL/min/1.7 3m*2 08/22/2024 5:50 AM EDT [facility] Comment:Reported eGFRcr in m L/min/1.73m2 is based the CKD-EPI 2020 equation that does not use a race coefficient. Blood Venous blood specimen / Unknown Venipuncture / Unknown 08/22/2024 4:46 AM EDT 08/22/2024 4:53 AM EDT Kenneth James MD LAB BLOOD ORDERABLES Final Res ult [facility] [address] [place] [address] * (ABNORMAL) POCT glucose meter (08/21/2024 9:26 PM EDT) [facility] [address] POCT Glucose 195(H) 74 - 99 mg/dL [...] Comment 08/21/2024 9:28 PM EDT [facility] Mild Disabilities Teacher ID Hazel Keller 08/22/19 9:28 PM EDT [facility] Device ID [id number] 08/21/2024 9:28 PM EDT [facility] Specimen Type POC Capillary 08/21/2024 9:28 PM EDT [facility] Blood Capillary blood specimen / Unknown 08/21/2024 9:26 PM EDT 08/21/2024 9:28 PM EDT us Kenneth James MD LAB POINT OF CARE TE ST DOCKED DEVICE UNSOLICITED RESULTS Final Result Performing Organization Address [facility]/ZIP Co de Phone Number [facility]ARE [facility] [address] [place] [address] * Lavender Top (08/21/2024 5:23 PM EDT) [facility] [address] Extra Hold for add-ons 08/21/2024 9:02 PM EDT [facility] Comment:Auto resulted. Blood Venous blood specimen / Unknown 08/21/2024 5:23 PM EDT 08/21/2024 6:26 PM EDT us Kenneth James MD LAB BLOOD ORDERABLES Final Res ult Performing Organization Address City/[facility]/ZIP Co de Phone Number [facility] [address] [place] [address] * (ABNORMAL) Basic metabolic panel (08/21/2024 5:23 PM EDT) Glucose, Plasma 136(H) 74 - 99 mg/dL 08/21/2024 6:22 PM EDT [facility] BUN, Plasma 32(H) 8 - 23 mg/dL 08/21/2024 6:22 PM EDT [facility] Creatinine, Plasma 1.09 0.60 - 1.10 mg/dL 08/21/2024 6:22 PM EDT [facility] BUN/Creatinine Ratio 29 08/21/2024 6:22 PM EDT [facility] Sodium, Plasma 131(L) 136 - 145 mmol/L 08/21/2024 6:22 PM EDT [facility] Potassium, Plasma 4.4 3.6 - 4.9 mmol/L 08/21/2024 6:22 PM EDT [facility] Chloride, Plasma 91(L) 97 - 107 mmol/L 08/21/2024 6:22 PM EDT [facility] CO2, Plasma 28 22 - 29 mmol/L 08/21/2024 6:22 PM EDT [facility] Anion Gap 12 6 - 16 mmol/L 08/21/2024 6:22 PM EDT [facility] Total Calcium, Plasma 9.3 8.9 - 10.2 mg/dL 08/21/2024 6:22 PM EDT [facility] eGFRcr 53.8 mL/min/1.7 3m*2 08/21/2024 6:22 PM EDT [facility] Comment:Reported eGFRcr in m L/min/1.73m2 is based the CKD-EPI 2020 equation that does not use a race coefficient. Blood Venous blood specimen / Unknown Venipuncture / Unknown 08/21/2024 5:23 PM EDT 08/21/2024 5:51 PM EDT us Kenneth James MD LAB BLOOD ORDERABLES Final Res ult [facility] [address] [place] [address] * POCT glucose meter (08/21/2024 4:18 PM EDT) [facility] [address] POCT Glucose 95 74 - 99 mg/dL [...] Comment 08/21/2024 4:23 PM EDT [facility] Mild Disabilities Teacher ID Alysia Werner 08/22/19 4:23 PM EDT [facility] Device ID [id number] 08/21/2024 4:23 PM EDT [facility] Specimen Type POC Capillary 08/21/2024 4:23 PM EDT [facility] Blood Capillary blood specimen / Unknown 08/21/2024 4:18 PM EDT 08/21/2024 4:23 PM EDT Kenneth James MD LAB POINT OF CARE TE ST DOCKED DEVICE UNSOLICITED RESULTS Final Result Performing Organization Address City/State/[facility] Co de Phone Number [facility]ARE [facility] [address] [place] [address] * (ABNORMAL) POCT glucose meter (08/21/2024 11:24 AM EDT) [facility] [address] POCT Glucose 330(H) 74 - 99 mg/dL 08/21/2024 11:27 AM EDT [facility] Comment:Accuracy of a [...] 08/21/2024 11:27 AM EDT [facility] Mild Disabilities Teacher ID Alysia Werner 08/22/19 11:27 AM EDT [facility] Device ID [id number] 08/21/2024 11:27 AM EDT [facility] Specimen Type POC Capillary 08/21/2024 11:27 AM EDT [facility] Blood Capillary blood specimen / Unknown 08/21/2024 11:24 AM EDT 08/21/2024 11:27 AM EDT Kenneth James MD LAB POINT OF CARE TE ST DOCKED DEVICE UNSOLICITED RESULTS Final Result Performing Organization Address [facility] de Phone Number [facility]ARE [facility] [address] [place] [address] * (ABNORMAL) POCT glucose meter (08/21/2024 8:05 AM EDT) [facility] [address] POCT Glucose 332(H) 74 - 99 mg/dL [...] Comment 08/21/2024 8:06 AM EDT [facility] Mild Disabilities Teacher ID Alysia Werner 08/22/19 25 8:06 AM EDT [facility] Device ID [id number] 08/21/2024 8:06 AM EDT [facility] Specimen Type POC Capillary 08/21/2024 8:06 AM EDT [facility] Blood Capillary blood specimen / Unknown 08/21/2024 8:05 AM EDT 08/21/2024 8:06 AM EDT Kenneth James MD LAB POINT OF CARE TE ST DOCKED DEVICE UNSOLICITED RESULTS Final Result Performing Organization Address City/[facility]/ZIP Co de Phone Number [facility] [address] [place] [address] * XR Chest 1 View (08/21/2024 7:01 [...] MD on 08/21/2024 2:34 PM Boby Rouse INSTITUTIONAL CUSTODIAN IMG XR PROCEDURES Final Res ult * Prothrombin Time/INR (08/21/2024 4:04 AM EDT) Prothrombin Time 13.8 12.0 - 14.3 sec LAB COAGULATION METHOD 08/21/2024 4:52 AM EDT [facility] INR 1.1 0.9 - 1.1 LAB COAGULATION METHOD 08/21/2024 4:52 AM EDT [facility] Blood Venous blood specimen / Unknown Venipuncture / Unknown 08/21/2024 4:04 AM EDT 08/21/2024 4:31 AM EDT Narrative [facility] - 08/21/2024 4:52 AM EDT OPTIMAL INR RANGES FOR PATIENT ON ORAL ANTICOAGULANT THERAPY Prevention of venous thromboembolism INR 2.0 to 3.0 In patients with heart disease: Atrial fibrillation INR 2.0 to 3.0 Valvular heart disease INR 2.0 to 3.0 Tissue heart valves INR 2.0 to 3.0 Mechanical prosthetic valves INR 2.5 to 3.[address] INR 2.5 to 3.5 us Kenneth James MD LAB BLOOD ORDERABLES Final Res ult [facility] [address] [place] [address] * (ABNORMAL) Basic metabolic panel (08/21/2024 4:04 AM EDT) Glucose, Plasma 401(H) 74 - 99 mg/dL 08/21/2024 5:05 AM EDT [facility] BUN, Plasma 32(H) 8 - 23 mg/dL 08/21/2024 5:05 AM EDT [facility] Creatinine, Plasma 0.99 0.60 - 1.10 mg/dL 08/21/2024 5:05 AM EDT [facility] BUN/Creatinine Ratio 32 08/21/2024 5:05 AM EDT [facility] Sodium, Plasma 125(L) 136 - 145 mmol/L 08/21/2024 5:05 AM EDT [facility] Potassium, Plasma 4.0 3.6 - 4.9 mmol/L 08/21/2024 5:05 AM EDT [facility] Chloride, Plasma 85(L) 97 - 107 mmol/L 08/21/2024 5:05 AM EDT [facility] CO2, Plasma 29 22 - 29 mmol/L 08/21/2024 5:05 AM EDT [facility] Anion Gap 11 6 - 16 mmol/L 08/21/2024 5:05 AM EDT [facility] Total Calcium, Plasma 9.0 8.9 - 10.2 mg/dL 08/21/2024 5:05 AM EDT [facility] eGFRcr 60.3 mL/min/1.7 3m*2 08/21/2024 5:05 AM EDT [facility] Comment:Reported eGFRcr in m L/min/1.73m2 is based the CKD-EPI 2020 equation that does not use a race coefficient. Blood Venous blood specimen / Unknown Venipuncture / Unknown 08/21/2024 4:04 AM EDT 08/21/2024 4:31 AM EDT Kenneth James MD LAB BLOOD ORDERABLES Final Res ult Performing Organization Address City/[facility]/ZIP Co de Phone Number [facility] [address] [place] [address] * (ABNORMAL) POCT glucose meter (08/21/2024 3:47 AM EDT) Pathologist [facility] POCT Glucose 369(H) 74 - 99 mg/dL [...] for testing. Comment 08/21/2024 3:49 AM EDT [facility] Mild Disabilities Teacher ID Marlene Jain 08/21/2024 3:49 AM EDT [facility] Device ID [id number] 08/21/2024 3:49 AM EDT [facility] Specimen Type POC Capillary 08/21/2024 3:49 AM EDT [facility] Blood Capillary blood specimen / Unknown 08/21/2024 3:47 AM EDT 08/21/2024 3:49 AM EDT Kenneth James MD LAB POINT OF CARE TE ST DOCKED DEVICE UNSOLICITED RESULTS Final Result Performing Organization Address City/[facility] Co de Phone Number [facility]ARE [facility] [address] [place] [address] * (ABNORMAL) POCT glucose meter (08/20/2024 7:51 PM EDT) Pathologist [facility] POCT Glucose 275(H) 74 - 99 mg/dL [...] 08/20/2024 7:52 PM EDT [facility] Mild Disabilities Teacher ID Karson Kaufman 08/21/19 7:52 PM EDT [facility] Device ID [id number] 08/20/2024 7:52 PM EDT [facility] Specimen Type POC Capillary 08/20/2024 7:52 PM EDT [facility] Blood Capillary blood specimen / Unknown 08/20/2024 7:51 PM EDT 08/20/2024 7:52 PM EDT Kenneth James MD LAB POINT OF CARE TE ST DOCKED DEVICE UNSOLICITED RESULTS Final Result Performing Organization Address City/[facility] Co de Phone Number [facility]ARE [facility] [address] [place] [address] * (ABNORMAL) POCT glucose meter (08/20/2024 5:05 [...] 08/20/2024 5:08 PM EDT [facility] Mild Disabilities Teacher ID Basia Cole 08/20/2024 5:08 PM EDT [facility] Device ID [id number] 08/20/2024 5:08 PM EDT [facility] Specimen Type POC Capillary 08/20/2024 5:08 PM EDT [facility] Blood Capillary blood specimen / Unknown 08/20/2024 5:05 PM EDT 08/20/2024 5:08 PM EDT Kenneth James MD LAB POINT OF CARE TE ST DOCKED DEVICE UNSOLICITED RESULTS Final Result Performing Organization Address City/[facility]/ZIP Co de Phone Number [facility] [address] [place] [address] * (ABNORMAL) POCT glucose meter (08/20/2024 12:16 PM EDT) [facility] [address] POCT Glucose 373(H) 74 - 99 mg/dL [...] Comment 08/20/2024 12:18 PM EDT [facility] Mild Disabilities Teacher ID Basia Cole 08/20/2024 12:18 PM EDT [facility] Device ID [id number] 08/20/2024 12:18 PM EDT [facility] Specimen Type POC Capillary 08/20/2024 12:18 PM EDT [facility] Blood Capillary blood specimen / Unknown 08/20/2024 12:16 PM EDT 08/20/2024 12:18 PM EDT Kenneth James MD LAB POINT OF CARE TE ST DOCKED DEVICE UNSOLICITED RESULTS Final Result [facility] [address] [place] [address] * (ABNORMAL) POCT glucose meter (08/20/2024 8:14 AM EDT) [facility] [address] POCT Glucose 225(H) 74 - 99 mg/dL [...] 08/20/2024 8:16 AM EDT [facility] Mild Disabilities Teacher ID Hardeep Coleila 08/20/2024 8:16 AM EDT [facility] Device ID [id number] 08/20/2024 8:16 AM EDT [facility] Specimen Type POC Capillary 08/20/2024 8:16 AM EDT [facility] Blood Capillary blood specimen / Unknown 08/20/2024 8:14 AM EDT 08/20/2024 8:16 AM EDT Kenneth James MD LAB POINT OF CARE TE ST DOCKED DEVICE UNSOLICITED RESULTS Final Result [facility] [address] [place] [address] * XR Chest 1 View (08/20/2024 6:58 AM EDT) Anatomical Region Laterality Modality Chest Digital Radiogra phy Impressions 08/20/2024 9:55 AM EDT Slight improved aeration CRITICAL RESULT: No. COMMUNICATION: Per this written report. Drafted by Macho Muir MD on 08/20/2024 9:54 AM Final report signed by Macho uMir MD on 08/20/2024 9:55 AM Narrative 08/20/2024 [...] MD on 08/20/2024 9:55 AM Boby Rouse INSTITUTIONAL CUSTODIAN IMG XR PROCEDURES Final Res ult * [...] Comment 08/20/2024 3:25 AM EDT [facility] Mild Disabilities Teacher ID Karson Kaufman 08/21/19 3:25 AM EDT [facility] Device ID [id number] 08/20/2024 3:25 AM EDT [facility] Specimen Type POC Capillary 08/20/2024 3:25 AM EDT [facility] Blood Capillary blood specimen / Unknown 08/20/2024 3:23 AM EDT 08/20/2024 3:25 AM EDT us Kenneth James MD LAB POINT OF CARE TE ST DOCKED DEVICE UNSOLICITED RESULTS Final Result Performing Organization Address City/State/[facility] Co de Phone Number [facility]ARE [facility] [address] [place] [address] * Prothrombin Time/INR (08/20/2024 1:57 AM EDT) Prothrombin Time 13.7 12.0 - 14.3 sec LAB COAGULATION METHOD 08/20/2024 2:21 AM EDT [facility] INR 1.0 0.9 - 1.1 LAB COAGULATION METHOD 08/20/2024 2:21 AM EDT [facility] Blood Venous blood specimen / Unknown Venipuncture / Unknown 08/20/2024 1:57 AM EDT 08/20/2024 2:02 AM EDT Narrative [facility] - 08/20/2024 2:21 AM EDT OPTIMAL INR RANGES FOR PATIENT ON ORAL ANTICOAGULANT THERAPY Prevention of venous thromboembolism INR 2.0 to 3.0 In patients with heart disease: Atrial fibrillation INR 2.0 to 3.0 Valvular heart disease INR 2.0 to 3.0 Tissue heart valves INR 2.0 to 3.0 Mechanical prosthetic valves INR 2.5 to 3.[address] INR 2.5 to 3.5 Kenneth James MD LAB BLOOD ORDERABLES Final Res ult Performing Organization Address [facility] Co de Phone Number [facility] [address] [place] [address] * (ABNORMAL) Magnesium (08/20/2024 1:57 AM EDT) Magnesium, Plasma 1.8(L) 1.9 - 2.4 mg/dL 08/20/2024 3:18 AM EDT [facility] Blood Venous blood specimen / Unknown Venipuncture / Unknown 08/20/2024 1:57 AM EDT 08/20/2024 2:02 AM EDT Kenneth James MD LAB BLOOD ORDERABLES Final Res ult Performing Organization Address [facility] Co de Phone Number [facility] [address] [place] [address] * (ABNORMAL) Basic metabolic panel (08/20/2024 1:57 AM EDT) Glucose, Plasma 216(H) 74 - 99 mg/dL 08/20/2024 3:18 AM EDT [facility] BUN, Plasma 29(H) 8 - 23 mg/dL 08/20/2024 3:18 AM EDT [facility] Creatinine, Plasma 0.97 0.60 - 1.10 mg/dL 08/20/2024 3:18 AM EDT [facility] BUN/Creatinine Ratio 30 08/20/2024 3:18 AM EDT [facility] Sodium, Plasma 125(L) 136 - 145 mmol/L 08/20/2024 3:18 AM EDT [facility] Potassium, Plasma 4.8 3.6 - 4.9 mmol/L 08/20/2024 3:18 AM EDT [facility] Comment:Hemolyzed, result ma y be falsely increased. Chloride, Plasma 85(L) 97 - 107 mmol/L 08/20/2024 3:18 AM EDT [facility] CO2, Plasma 26 22 - 29 mmol/L 08/20/2024 3:18 AM EDT [facility] Anion Gap 14 6 - 16 mmol/L 08/20/2024 3:18 AM EDT [facility] Total Calcium, Plasma 9.5 8.9 - 10.2 mg/dL 08/20/2024 3:18 AM EDT [facility] eGFRcr 61.8 mL/min/1.7 3m*2 08/20/2024 3:18 AM EDT [facility] Comment:Reported eGFRcr in m L/min/1.73m2 is based the CKD-EPI 2020 equation that does not use a race coefficient. Blood Venous blood specimen / Unknown Venipuncture / Unknown 08/20/2024 1:57 AM EDT 08/20/2024 2:02 AM EDT us Kenneth James MD LAB BLOOD ORDERABLES Final Res ult [facility] [address] [place] [address] * (ABNORMAL) POCT glucose meter (08/19/2024 7:49 [...] 08/19/2024 7:51 PM EDT [facility] Mild Disabilities Teacher ID Karson Kaufman 08/20/19 7:51 PM EDT [facility]ALTH[facility]ARE [facility] Device ID [id number] 08/19/2024 7:51 PM EDT [facility] Specimen Type POC Capillary 08/19/2024 7:51 PM EDT [facility] Blood Capillary blood specimen / Unknown 08/19/2024 7:49 PM EDT 08/19/2024 7:51 PM EDT Kenneth James MD LAB POINT OF CARE TE ST DOCKED DEVICE UNSOLICITED RESULTS Final Result Performing Organization Address [facility] Co de Phone Number [facility] [address] [place] [address] * (ABNORMAL) POCT glucose meter (08/19/2024 4:03 PM EDT) [facility] [address] POCT Glucose 279(H) 74 - 99 mg/dL [...] Comment 08/19/2024 4:04 PM EDT [facility] Mild Disabilities Teacher ID Michelle Rolle 08/20/19 25 4:04 PM EDT [facility]ALTH[facility]ARE [facility] Device ID [id number] 08/19/2024 4:04 PM EDT [facility] Specimen Type POC Capillary 08/19/2024 4:04 PM EDT [facility] Blood Capillary blood specimen / Unknown 08/19/2024 4:03 PM EDT 08/19/2024 4:04 PM EDT Kenneth James MD LAB POINT OF CARE TE ST DOCKED DEVICE UNSOLICITED RESULTS Final Result Performing Organization Address City/[facility]/ZIP Co de Phone Number [facility] [address] [place] [address] * (ABNORMAL) POCT glucose meter (08/19/2024 11:51 AM EDT) [facility] [address] POCT Glucose 350(H) 74 - 99 mg/dL [...] Comment 08/19/2024 11:52 AM EDT [facility] Mild Disabilities Teacher ID Ekaterina Gustafson 08/20/19 11:52 AM EDT [facility] LAB Device ID [id number] 08/19/2024 11:52 AM EDT [facility] Specimen Type POC Capillary 08/19/2024 11:52 AM EDT [facility] Blood Capillary blood specimen / Unknown 08/19/2024 11:51 AM EDT 08/19/2024 11:52 AM EDT us Kenneth James MD LAB POINT OF CARE TE ST DOCKED DEVICE UNSOLICITED RESULTS Final Result [facility] [address] [place] [address] * (ABNORMAL) POCT glucose meter (08/19/2024 8:06 [...] Comment 08/19/2024 8:08 AM EDT [facility] Mild Disabilities Teacher ID Ekaterina Gustafson 08/20/19 8:08 AM EDT [facility] Device ID [id number] 08/19/2024 8:08 AM EDT [facility] Specimen Type POC Capillary 08/19/2024 8:08 AM EDT [facility] Blood Capillary blood specimen / Unknown 08/19/2024 8:06 AM EDT 08/19/2024 8:08 AM EDT us Kenneth James MD LAB POINT OF CARE TE ST DOCKED DEVICE UNSOLICITED RESULTS Final Result [facility] [address] [place] [address] * XR Chest 1 View (08/19/2024 7:54 [...] MD on 08/19/2024 8:53 AM Boby Rouse INSTITUTIONAL CUSTODIAN IMG XR PROCEDURES Final Res ult * (ABNORMAL) Prothrombin Time/INR (08/19/2024 5:00 AM EDT) Prothrombin Time 15.9(H) 12.0 - 14.3 sec LAB COAGULATION METHOD 08/19/2024 5:55 AM EDT [facility] INR 1.3(H) 0.9 - 1.1 LAB COAGULATION METHOD 08/19/2024 5:55 AM EDT [facility] Blood Venous blood specimen / Unknown Venipuncture / Unknown 08/19/2024 5:00 AM EDT 08/19/2024 5:18 AM EDT Narrative [facility] - 08/19/2024 5:55 AM EDT OPTIMAL INR RANGES FOR PATIENT ON ORAL ANTICOAGULANT THERAPY Prevention of venous thromboembolism INR 2.0 to 3.0 In patients with heart disease: Atrial fibrillation INR 2.0 to 3.0 Valvular heart disease INR 2.0 to 3.0 Tissue heart valves INR 2.0 to 3.0 Mechanical prosthetic valves INR 2.5 to 3.[address] INR 2.5 to 3.5 Kenneth James MD LAB BLOOD ORDERABLES Final Res ult Performing Organization Address City/[facility]/ZIP Co de Phone Number [facility] [address] [place] [address] * (ABNORMAL) Magnesium (08/19/2024 5:00 AM EDT) Magnesium, Plasma 1.7(L) 1.9 - 2.4 mg/dL 08/19/2024 5:47 AM EDT [facility] Blood Venous blood specimen / Unknown Venipuncture / Unknown 08/19/2024 5:00 AM EDT 08/19/2024 5:18 AM EDT Kenneth James MD LAB BLOOD ORDERABLES Final Res ult Performing Organization Address [facility] Co de Phone Number [facility] [address] [place] [address] * (ABNORMAL) Basic metabolic panel (08/19/2024 5:00 AM EDT) Glucose, Plasma 235(H) 74 - 99 mg/dL 08/19/2024 5:47 AM EDT [facility] BUN, Plasma 31(H) 8 - 23 mg/dL 08/19/2024 5:47 AM EDT [facility] Creatinine, Plasma 1.01 0.60 - 1.10 mg/dL 08/19/2024 5:47 AM EDT [facility] BUN/Creatinine Ratio 31 08/19/2024 5:47 AM EDT [facility] Sodium, Plasma 132(L) 136 - 145 mmol/L 08/19/2024 5:47 AM EDT [facility] Potassium, Plasma 4.4 3.6 - 4.9 mmol/L 08/19/2024 5:47 AM EDT [facility] Chloride, Plasma 90(L) 97 - 107 mmol/L 08/19/2024 5:47 AM EDT [facility] CO2, Plasma 30(H) 22 - 29 mmol/L 08/19/2024 5:47 AM EDT [facility] Anion Gap 12 6 - 16 mmol/L 08/19/2024 5:47 AM EDT [facility] Total Calcium, Plasma 8.7(L) 8.9 - 10.2 mg/dL 08/19/2024 5:47 AM EDT [facility] eGFRcr 58.9 mL/min/1.7 3m*2 08/19/2024 5:47 AM EDT [facility] Comment:Reported eGFRcr in m L/min/1.73m2 is based the CKD-EPI 2020 equation that does not use a race coefficient. Blood Venous blood specimen / Unknown Venipuncture / Unknown 08/19/2024 5:00 AM EDT 08/19/2024 5:18 AM EDT us Kenneth James MD LAB BLOOD ORDERABLES Final Res ult [facility] [address] [place] [address] * (ABNORMAL) POCT glucose meter (08/19/2024 3:40 [...] Comment 08/19/2024 3:41 AM EDT [facility] Mild Disabilities Teacher ID Veronica Kellogg 025 3:41 AM EDT [facility] Device ID [id number] 08/19/2024 3:41 AM EDT [facility] Specimen Type POC Capillary 08/19/2024 3:41 AM EDT [facility] Blood Capillary blood specimen / Unknown 08/19/2024 3:40 AM EDT 08/19/2024 3:41 AM EDT Kenneth James MD LAB POINT OF CARE TE ST DOCKED DEVICE UNSOLICITED RESULTS Final Result Performing Organization Address City/[facility] Co de Phone Number [facility]ARE [facility] [address] [place] [address] * (ABNORMAL) POCT glucose meter (08/19/2024 3:05 [...] Comment 08/19/2024 3:07 AM EDT [facility] Mild Disabilities Teacher ID Darin Florez 3:07 AM EDT [facility] Device ID [id number] 08/19/2024 3:07 AM EDT [facility] Specimen Type POC Capillary 08/19/2024 3:07 AM EDT [facility] Blood Capillary blood specimen / Unknown 08/19/2024 3:05 AM EDT 08/19/2024 3:07 AM EDT us Kenneth James MD LAB POINT OF CARE TE ST DOCKED DEVICE UNSOLICITED RESULTS Final Result Performing Organization Address City/[facility] de Phone Number [facility]ARE [facility] [address] [place] [address] * (ABNORMAL) POCT glucose meter (08/19/2024 1:59 [...] Comment 08/19/2024 2:02 AM EDT [facility] Mild Disabilities Teacher ID Darin Florez 2:02 AM EDT [facility] Device ID [id number] 08/19/2024 2:02 AM EDT [facility] Specimen Type POC Capillary 08/19/2024 2:02 AM EDT [facility] Blood Capillary blood specimen / Unknown 08/19/2024 1:59 AM EDT 08/19/2024 2:02 AM EDT Kenneth James MD LAB POINT OF CARE TE ST DOCKED DEVICE UNSOLICITED RESULTS Final Result [facility] [address] [place] [address] * (ABNORMAL) POCT glucose meter (08/19/2024 1:03 AM EDT) [facility] [address] POCT Glucose 51(L) 74 - 99 mg/dL [...] Comment 08/19/2024 1:05 AM EDT [facility] Mild Disabilities Teacher ID Veronica Kellogg 025 1:05 AM EDT [facility]ALTH[facility]ARE LAB Device ID [id number] 08/19/2024 1:05 AM EDT [facility] Specimen Type POC Capillary 08/19/2024 1:05 AM EDT [facility] Blood Capillary blood specimen / Unknown 08/19/2024 1:03 AM EDT 08/19/2024 1:05 AM EDT Kenneth James MD LAB POINT OF CARE TE ST DOCKED DEVICE UNSOLICITED RESULTS Final Result Performing Organization Address City/[facility]/ZIP Co de Phone Number HEALTHCARE LAB [address] [place] [address] * (ABNORMAL) POCT glucose meter (08/18/2024 11:00 PM EDT) Pathologist [facility] POCT Glucose 290(H) 74 - 99 mg/dL [...] Comment 08/18/2024 11:02 PM EDT [facility] Mild Disabilities Teacher ID Veronica Kellogg 025 11:02 PM EDT [facility]ALTH[facility]ARE [facility] Device ID [id number] 08/18/2024 11:02 PM EDT [facility] Specimen Type POC Capillary 08/18/2024 11:02 PM EDT [facility] Blood Capillary blood specimen / Unknown 08/18/2024 11:00 PM EDT 08/18/2024 11:02 PM EDT Kenneth James MD LAB POINT OF CARE TE ST DOCKED DEVICE UNSOLICITED RESULTS Final Result Performing Organization Address City/[facility]/ZIP Co de Phone Number [facility]ALTH[facility]ARE [facility] [address] [place] [address] * (ABNORMAL) POCT glucose meter (08/18/2024 7:39 PM EDT) Pathologist [facility] POCT Glucose 430(H) 74 - 99 mg/dL [...] 08/18/2024 7:42 PM EDT [facility] Mild Disabilities Teacher ID Veronica Kellogg 025 7:42 PM EDT [facility]ALTH[facility] Device ID [id number] 08/18/2024 7:42 PM EDT [facility] Specimen Type POC Capillary 08/18/2024 7:42 PM EDT [facility] Blood Capillary blood specimen / Unknown 08/18/2024 7:39 PM EDT 08/18/2024 7:42 PM EDT Kenneth James MD LAB POINT OF CARE TE ST DOCKED DEVICE UNSOLICITED RESULTS Final Result Performing Organization Address City/[facility] Co de Phone Number [facility]ARE [facility] [address] [place] [address] * (ABNORMAL) POCT glucose meter (08/18/2024 4:23 [...] Comment 08/18/2024 4:32 PM EDT [facility] Mild Disabilities Teacher ID Partha Zhu 08/19/19 25 4:32 PM EDT [facility]ARE [facility] Device ID [id number] 08/18/2024 4:32 PM EDT [facility] Specimen Type POC Capillary 08/18/2024 4:32 PM EDT [facility] Blood Capillary blood specimen / Unknown 08/18/2024 4:23 PM EDT 08/18/2024 4:32 PM EDT Kenneth James MD LAB POINT OF CARE TE ST DOCKED DEVICE UNSOLICITED RESULTS Final Result Performing Organization Address City/[facility]/ZIP Co de Phone Number [facility] [address] [place] [address] * RIGHT HEART CATHETERIZATION (08/18/2024 4:04 PM [...] then carried out using a 7.5F VIP [place]wood-Carter catheter. Pressures were recorded as the catheter [...] the patient was transferred back to the powerhouse laborer holding area in good condition. Study Details [...] Co-Oximetry Mixed Venous (08/18/2024 3:52 PM EDT) [facility] [address] POCT Oxyhemoglobin, Mixed Venous 60.8 % 08/18/2024 3:53 PM EDT [facility] Mild Disabilities Teacher ID Kamilah Linaresline 08/18/2024 3:53 PM EDT [facility] Device ID [id number] 08/18/2024 3:53 PM EDT [facility] POCT Sample Site PA 08/18/2024 3:53 PM EDT [facility] POCT Total Hemoglobin 9.7(L) 11.2 - 15.7 g/dL 08/18/2024 3:53 PM EDT [facility] LAB 08/18/2024 3:52 PM EDT 08/18/2024 3:53 PM EDT Kenneth James MD LAB POINT OF CARE TE ST DOCKED DEVICE UNSOLICITED RESULTS Final Result Performing Organization Address City/State/[facility] Co de Phone Number [facility] [address] [place] [address] * (ABNORMAL) POCT CO-Oximitry, Venous (08/18/2024 3:50 PM EDT) [facility] [address] POCT OXYHEMOGLOBIN, VENOUS 65 40 - 70 % 08/18/2024 3:50 PM EDT [facility] LAB Mild Disabilities Teacher ID Vijay Ngozi 08/18/2024 3:50 PM EDT [facility] Device ID [id number] 08/18/2024 3:50 PM EDT [facility] POCT Sample Site -[facility]- 08/18/2024 3:50 PM EDT [facility] POCT Total Hemoglobin 9.7(L) 11.2 - 15.7 g/dL 08/18/2024 3:50 PM EDT [facility]ALTH[facility] LAB Venous blood specimen / Unknown 08/18/2024 3:50 PM EDT 08/18/2024 3:50 PM EDT us Kenneth James MD LAB POINT OF CARE TE ST DOCKED DEVICE UNSOLICITED RESULTS Final Result [facility] [address] [place] [address] * (ABNORMAL) POCT glucose meter (08/18/2024 11:26 AM EDT) POCT Glucose 352(H) 74 - 99 mg/dL 08/18/2024 11:34 AM EDT [facility] Comment:Accuracy of a [...] for testing. Comment 08/18/2024 11:34 AM EDT [facility] Mild Disabilities Teacher ID Partha Zhu 08/19/19 11:34 AM EDT [facility] Device ID [id number] 08/18/2024 11:34 AM EDT [facility] Specimen Type POC Capillary 08/18/2024 11:34 AM EDT [facility] Blood Capillary blood specimen / Unknown 08/18/2024 11:26 AM EDT 08/18/2024 11:34 AM EDT us Kenneth James MD LAB POINT OF CARE TE ST DOCKED DEVICE UNSOLICITED RESULTS Final Result [facility] [address] [place] [address] * (ABNORMAL) POCT glucose meter (08/18/2024 7:30 [...] Comment 08/18/2024 7:43 AM EDT [facility] Mild Disabilities Teacher ID Partha Zhu 08/19/19 7:43 AM EDT [facility]ALTH[facility]ARE LAB Device ID [id number] 08/18/2024 7:43 AM EDT [facility] Specimen Type POC Capillary 08/18/2024 7:43 AM EDT [facility] Blood Capillary blood specimen / Unknown 08/18/2024 7:30 AM EDT 08/18/2024 7:43 AM EDT us Kenneth James MD LAB POINT OF CARE TE ST DOCKED DEVICE UNSOLICITED RESULTS Final Result Performing Organization Address City/State/[facility] Co de Phone Number HEALTH[facility]ARE LAB [address] [place], [place] [id number] * XR Chest 1 View (08/18/2024 6:25 [...] on 08/18/2024 7:47 AM us Boby Joel Duboisoy INSTITUTIONAL CUSTODIAN IMG XR PROCEDURES Final Res ult * (ABNORMAL) POCT glucose meter (08/18/2024 3:08 AM EDT) [facility] [address] POCT Glucose 169(H) 74 - 99 mg/dL [...] for testing. Comment 08/18/2024 3:10 AM EDT [facility]ALTH[facility]ARE LAB Mild Disabilities Teacher ID Bess Veronica 025 3:10 AM EDT [facility] Device ID [id number] 08/18/2024 3:10 AM EDT [facility] Specimen Type POC Capillary 08/18/2024 3:10 AM EDT [facility] Blood Capillary blood specimen / Unknown 08/18/2024 3:08 AM EDT 08/18/2024 3:10 AM EDT Kenneth James MD LAB POINT OF CARE TE ST DOCKED DEVICE UNSOLICITED RESULTS Final Result Performing Organization Address City/State/[facility] Co de Phone Number [facility]ARE [facility] [address] [place] [address] * (ABNORMAL) POCT glucose meter (08/18/2024 1:52 AM EDT) [facility] [address] POCT Glucose 168(H) 74 - 99 mg/dL [...] Comment 08/18/2024 1:54 AM EDT [facility]ARE LAB Mild Disabilities Teacher ID Becca Mittal 1:54 AM EDT [facility] Device ID [id number] 08/18/2024 1:54 AM EDT [facility]ALTH[facility]ARE [facility] Specimen Type POC Capillary 08/18/2024 1:54 AM EDT [facility] Blood Capillary blood specimen / Unknown 08/18/2024 1:52 AM EDT 08/18/2024 1:54 AM EDT Kenneth James MD LAB POINT OF CARE TE ST DOCKED DEVICE UNSOLICITED RESULTS Final Result Performing Organization Address City/[facility] Co de Phone Number [facility] [address] [place] [address] * (ABNORMAL) Prothrombin Time/INR (08/18/2024 1:18 AM EDT) Prothrombin Time 16.8(H) 12.0 - 14.3 sec LAB COAGULATION METHOD 08/18/2024 2:05 AM EDT [facility] INR 1.4(H) 0.9 - 1.1 LAB COAGULATION METHOD 08/18/2024 2:05 AM EDT [facility] Blood Venous blood specimen / Unknown Venipuncture / Unknown 08/18/2024 1:18 AM EDT 08/18/2024 1:37 AM EDT Narrative [facility] - 08/18/2024 2:05 AM EDT OPTIMAL INR RANGES FOR PATIENT ON ORAL ANTICOAGULANT THERAPY Prevention of venous thromboembolism INR 2.0 to 3.0 In patients with heart disease: Atrial fibrillation INR 2.0 to 3.0 Valvular heart disease INR 2.0 to 3.0 Tissue heart valves INR 2.0 to 3.0 Mechanical prosthetic valves INR 2.5 to 3[address] INR 2.5 to 3.5 Kenneth James MD LAB BLOOD ORDERABLES Final Res ult Performing Organization Address City/[facility]/ZIP Co de Phone Number [facility] [address] [place] [address] * Magnesium, Plasma (08/18/2024 1:18 AM EDT) Magnesium, Plasma 2.1 1.9 - 2.4 mg/dL 08/18/2024 2:07 AM EDT [facility] Blood Venous blood specimen / Unknown Venipuncture / Unknown 08/18/2024 1:18 AM EDT 08/18/2024 1:37 AM EDT us Kenneth James MD LAB BLOOD ORDERABLES Final Res ult [facility] [address] [place] [address] * (ABNORMAL) Basic Metabolic Panel, Plasma (08/18/2024 1:18 AM EDT) Glucose, Plasma 211(H) 74 - 99 mg/dL 08/18/2024 2:07 AM EDT [facility] BUN, Plasma 26(H) 8 - 23 mg/dL 08/18/2024 2:07 AM EDT [facility] Creatinine, Plasma 1.15(H) 0.60 - 1.10 mg/dL 08/18/2024 2:07 AM EDT [facility] BUN/Creatinine Ratio 23 08/18/2024 2:07 AM EDT [facility] Sodium, Plasma 132(L) 136 - 145 mmol/L 08/18/2024 2:07 AM EDT [facility] Potassium, Plasma 4.4 3.6 - 4.9 mmol/L 08/18/2024 2:07 AM EDT [facility] Chloride, Plasma 90(L) 97 - 107 mmol/L 08/18/2024 2:07 AM EDT [facility] CO2, Plasma 30(H) 22 - 29 mmol/L 08/18/2024 2:07 AM EDT [facility] Anion Gap 12 6 - 16 mmol/L 08/18/2024 2:07 AM EDT [facility] Total Calcium, Plasma 8.8(L) 8.9 - 10.2 mg/dL 08/18/2024 2:07 AM EDT [facility] eGFRcr 50.4 mL/min/1.7 3m*2 08/18/2024 2:07 AM EDT [facility] Comment:Reported eGFRcr in m L/min/1.73m2 is based the CKD-EPI 2020 equation that does not use a race coefficient. Blood Venous blood specimen / Unknown Venipuncture / Unknown 08/18/2024 1:18 AM EDT 08/18/2024 1:37 AM EDT Kenneth James MD LAB BLOOD ORDERABLES Final Res ult Performing Organization Address City/[facility]/ZIP Co de Phone Number [facility] [address] [place] [address] * (ABNORMAL) POCT glucose meter (08/18/2024 12:56 [...] Comment 08/18/2024 12:57 AM EDT [facility]ALTH[facility]ARE [facility] Mild Disabilities Teacher ID Veronica Kellogg 025 12:57 AM EDT [facility]ALTH[facility]ARE LAB Device ID [id number] 08/18/2024 12:57 AM EDT [facility]ALTH[facility]ARE LAB Specimen Type POC Capillary 08/18/2024 12:57 AM EDT [facility] Blood Capillary blood specimen / Unknown 08/18/2024 12:56 AM EDT 08/18/2024 12:57 AM EDT Kenneth James MD LAB POINT OF CARE TE ST DOCKED DEVICE UNSOLICITED RESULTS Final Result Performing Organization Address City/[facility]/ZIP Co de Phone Number [facility] [address] [place] [address] * (ABNORMAL) POCT glucose meter (08/17/2024 8:34 PM EDT) POCT Glucose 344(H) 74 - 99 mg/dL [...] for testing. Comment 08/17/2024 8:35 PM EDT [facility] Mild Disabilities Teacher ID Veronica Kellogg 025 8:35 PM EDT [facility] Device ID [id number] 08/17/2024 8:35 PM EDT [facility] Specimen Type POC Capillary 08/17/2024 8:35 PM EDT [facility] Blood Capillary blood specimen / Unknown 08/17/2024 8:34 PM EDT 08/17/2024 8:35 PM EDT Kenneth James MD LAB POINT OF CARE TE ST DOCKED DEVICE UNSOLICITED RESULTS Final Result Performing Organization Address City/State/[facility] Co de Phone Number HEALTHCARE LAB [address] [place] [address] * (ABNORMAL) POCT glucose meter (08/17/2024 6:23 PM EDT) [facility] [address] POCT Glucose 216(H) 74 - 99 mg/dL [...] 08/17/2024 6:24 PM EDT [facility] Mild Disabilities Teacher ID Kimberly Hernadez 08/18/19 6:24 PM EDT [facility] Device ID [id number] 08/17/2024 6:24 PM EDT [facility] Specimen Type POC Capillary 08/17/2024 6:24 PM EDT [facility] Blood Capillary blood specimen / Unknown 08/17/2024 6:23 PM EDT 08/17/2024 6:24 PM EDT Kenneth James MD LAB POINT OF CARE TE ST DOCKED DEVICE UNSOLICITED RESULTS Final Result Performing Organization Address City/[facility] Co de Phone Number [facility]ALTH[facility]ARE [facility] [address] [place] [address] * (ABNORMAL) POCT glucose meter (08/17/2024 4:28 [...] for testing. Comment 08/17/2024 4:39 PM EDT [facility] Mild Disabilities Teacher ID Partha Zhu 08/18/19 4:39 PM EDT HEALTHCARE LAB Device ID [id number] 08/17/2024 4:39 PM EDT [facility] Specimen Type POC Capillary 08/17/2024 4:39 PM EDT [facility] Blood Capillary blood specimen / Unknown 08/17/2024 4:28 PM EDT 08/17/2024 4:39 PM EDT Kenneth James MD LAB POINT OF CARE TE ST DOCKED DEVICE UNSOLICITED RESULTS Final Result Performing Organization Address City/[facility] Co de Phone Number [facility] [address] [place] [address] * (ABNORMAL) POCT glucose meter (08/17/2024 11:43 [...] Comment 08/17/2024 11:50 AM EDT [facility]ALTH[facility]ARE LAB Mild Disabilities Teacher ID Partha Zhu 08/18/19 11:50 AM EDT HEALTH[facility]ARE LAB Device ID [id number] 08/17/2024 11:50 AM EDT [facility]ARE [facility] Specimen Type POC Capillary 08/17/2024 11:50 AM EDT [facility] Blood Capillary blood specimen / Unknown 08/17/2024 11:43 AM EDT 08/17/2024 11:50 AM EDT us Kenneth James MD LAB POINT OF CARE TE ST DOCKED DEVICE UNSOLICITED RESULTS Final Result Performing Organization Address City/State/[facility] Co de Phone Number [facility]ARE [facility] [address] [place] [address] * XR Chest 1 View (08/17/2024 11:26 [...] LAB HEMATOLOGY METHOD 08/18/2024 1:12 PM EDT [facility] Specimen Source, Body Fluid Pleural, Right LAB HEMATOLOGY METHOD 08/18/2024 1:12 PM EDT [facility] Clinical Diagnosis, Body Fluid Pleural effusion LAB HEMATOLOGY METHOD 08/18/2024 1:12 PM EDT [facility] Interpretation , Body Fluid No evidence of malignancy; Predominantly chronic inflammatory cells, reactive mesothelial cells. Light blood A resident was involved in the service. I attest I examined the relevant preparations for the specimens and confirmed the diagnosis or interpretation. 08/18/2024 1:12 PM EDT [facility] Pathologist Signature, Body Fluid 08/18/2024 1:12 PM EDT [facility] Comment:Reviewed by: Spike Estbean MD LAB CP ASR DISCLAIMER Yes 08/18/2024 1:12 PM EDT [facility] Body Fluid Structure of right pleural cavity / Unknown Non-blood Collection / Unknown 08/17/2024 10:58 AM EDT 08/17/2024 11:11 AM EDT Boby Rouse APRN LAB BODY FLUIDS AND STOOLS ORDERABLES Final Result [facility] [address] [place] [address] * (ABNORMAL) Body Fluid Cell Count w/ Diff - Pleural Right (08/17/2024 10:58 AM EDT) Color, Body fluid [place] LAB HEMATOLOGY METHOD 08/17/2024 6:09 PM EDT [facility] Appearance, Body fluid Cloudy(A) LAB HEMATOLOGY METHOD 08/17/2024 6:09 PM EDT [facility] Volume, Body fluid 90.0 cc LAB HEMATOLOGY METHOD 08/17/2024 6:09 PM EDT [facility] Fluid Container Specimen received in miscellaneous container LAB HEMATOLOGY METHOD 08/17/2024 6:09 PM EDT [facility] Red Blood Cell Count, Body fluid 5,000 uL LAB HEMATOLOGY METHOD 08/17/2024 6:09 PM EDT [facility] Total Nucleated Cell Count, Body fluid 370 uL LAB HEMATOLOGY METHOD 08/17/2024 6:09 PM EDT [facility] Neutrophils %, Body fluid 17 % LAB HEMATOLOGY METHOD 08/17/2024 6:09 PM EDT [facility] Lymphocytes %, Body fluid 37 % LAB HEMATOLOGY METHOD 08/17/2024 6:09 PM EDT [facility] Monocytes/Macr ophages %, Body fluid 44 % LAB HEMATOLOGY METHOD 08/17/2024 6:09 PM EDT [facility] Eosinophils %, Body fluid 0 % LAB HEMATOLOGY METHOD 08/17/2024 6:09 PM EDT [facility] Lining/Mesothe lial Cells %, Body fluid 2 % LAB HEMATOLOGY METHOD 08/17/2024 6:09 PM EDT [facility] Neutrophils Absolute (PMN), Body fluid 63 uL LAB HEMATOLOGY METHOD 08/17/2024 6:09 PM EDT [facility] Lymphocytes Absolute, Body fluid 137 uL LAB HEMATOLOGY METHOD 08/17/2024 6:09 PM EDT [facility] Monocytes/Macr ophages Absolute, Body fluid 163 uL LAB HEMATOLOGY METHOD 08/17/2024 6:09 PM EDT [facility] Eosinophils Absolute, Body fluid 0 uL LAB HEMATOLOGY METHOD 08/17/2024 6:09 PM EDT [facility] Basophils Absolute, Body fluid 0 uL LAB HEMATOLOGY METHOD 08/17/2024 6:09 PM EDT [facility] Lining/Mesothe lial Cells Absolute, Body fluid 7 uL LAB HEMATOLOGY METHOD 08/17/2024 6:09 PM EDT [facility] Basophils %, Body fluid 0 % LAB HEMATOLOGY METHOD 08/17/2024 6:09 PM EDT [facility] Body Fluid Structure of right pleural cavity / Unknown Non-blood Collection / Unknown 08/17/2024 10:58 AM EDT 08/17/2024 11:11 AM EDT Boby Rouse APRN LAB BODY FLUIDS AND STOOLS ORDERABLES NO SPECIMEN TYPE/SOURCE Final Result [facility] [address] [place] [address] * Chylomicron Electrophoresis (Reflex Only) (08/17/2024 10:57 AM EDT) Chylomicron Electrophoresis Billed 08/25/2024 6:56 PM EDT [facility] ([facility]) Fluid Pleural fluid specimen / Unknown 08/17/2024 10:57 AM EDT 08/17/2024 11:10 AM EDT Narrative [facility] ([facility]) - 08/25/2024 6:56 PM EDT Performed By: [facility] [address] [place] [address] Social Science Manager: Austin Bernal MD, PhD CLIA Number: [id number] Boby Rouse APRN LAB REF LAB BLOOD AND FLUID ORD Final Result Performing Organization Address [facility] Co de Phone Number [facility] ([facility]) [address] [place] [address] * Amylase, Pleural Fluid (08/17/2024 10:57 AM EDT) Amylase, Pleural Fluid 6 U/L 08/17/2024 1:23 PM EDT [facility] Pleural Fluid Structure of right pleural cavity / Unknown Non-blood Collection / Unknown 08/17/2024 10:57 AM EDT 08/17/2024 11:08 AM EDT Narrative [facility] - 08/17/2024 1:23 PM EDT Reference Values: No established reference interval. Interpret with caution. This test was developed and its performance characteristics determined by [facility]. The U.S. Food and Drug [...] upper reference limit for serum and a mvxei-fr-shofb amylase ratio greater than one. Note: Interpretive [...] FLUIDS AND STOOLS ORD ERABLES Final Result [facility] [address] [place] [address] * Cholesterol Fluid Battery (08/17/2024 10:57 AM EDT) CHOLESTEROL, FLUID 28 mg/dL 08/19/2024 1:48 PM EDT [facility] ([facility]) CHOLESTEROL FLUID SOURCE Pleural fluid 08/19/2024 1:48 PM EDT [facility] (codetag) Pleural Fluid Structure of right pleural cavity / Unknown Non-blood Collection / Unknown 08/17/2024 10:57 AM EDT 08/17/2024 11:10 AM EDT Narrative [facility] ([employer]) - 08/19/2024 1:48 PM EDT INTERPRETIVE INFORMATION: Cholesterol, Body Fluid For information on body fluid reference ranges and/or interpretive guidance visit [email or web address] This test was developed and its performance characteristics determined by [facility]. It has not been cleared or approved by the [place] Food and Drug Administration. This test was performed in a CLIA certified laboratory and is intended for clinical purposes. Performed By: [facility] [address] [place] [id number] Social Science Manager: Austin Bernal MD, PhD CLIA Number: [id number] Boby Rouse APRN LAB REF LAB BLOOD AND FLUID ORD Final Result Performing Organization Address [facility]/ZIP Co de Phone Number [facility]) [address] [place] [address] * Adenosine Deaminase,Pleural Fluid (08/17/2024 10:57 AM EDT) ADA, Pleural Fluid 5 0 - 30 U/L 08/19/2024 3:10 PM EDT [facility] ([facility]) Pleural Fluid Structure of right pleural cavity / Unknown Non-blood Collection / Unknown 08/17/2024 10:57 AM EDT 08/17/2024 11:10 AM EDT Narrative [facility] SONY) - 08/19/2024 3:10 PM EDT INTERPRETIVE INFORMATION:Adenosine Deaminase, Pleural Fluid This test was developed and its performance characteristics determined by [facility]. It has not been cleared or approved by the [place] Food and Drug Administration. This test was performed in a CLIA certified laboratory and is intended for clinical purposes. Performed By: [facility] [address] [place] [address] Social Science Manager: Austin Bernal MD, PhD CLIA Number: [id number] Boby Rouse APRN LAB BODY FLUIDS AND STOOLS ORDERABLES Final Result Performing Organization Address [facility] de Phone Number [facility]) [address] [place] [address] * (ABNORMAL) pH, pleural fluid (08/17/2024 10:57 AM EDT) pH, Pleural Fluid 7.49(L) 7.60 - 7.66 LAB HEMATOLOGY METHOD 08/17/2024 11:17 AM EDT [facility] Pleural Fluid Pleural fluid specimen / Unknown Non-blood Collection / Unknown 08/17/2024 10:57 AM EDT 08/17/2024 11:13 AM EDT Narrative [facility] - 08/17/2024 11:17 AM EDT Normal [...] and its performance characteristics determined by the [facility]. Pleural pH is [...] STOOLS ORDERABLES Final Result Performing Organization Address City/[facility]/ZIP Co de Phone Number [facility] [address] [place] [address] * AFB Culture and Acid Fast Stain - Pleural Right (08/17/2024 10:57 AM EDT) AFB Culture No Mycobacterial Growth at 6 Weeks 09/29/2024 5:06 PM EDT [facility] Acid Fast Stain No acid fast bacilli seen 09/29/2024 5:06 PM EDT [facility] Pleural Fluid Specimen from pleura obtained by thoracentesis / Unknown Non-blood Collection / Unknown 08/17/2024 10:57 AM EDT 08/17/2024 11:14 AM EDT Boby Rouse APRN LAB MICROBIOLOGY - GENERAL ORDERABLES Final Result [facility] [address] [place] [address] * Triglycerides BF with RFLX to CHYLO (SO) (08/17/2024 10:57 AM EDT) Triglyceride, Fluid 27 mg/dL 08/25/2024 6:56 PM EDT [facility] ([facility]) Triglyceride Fluid Source Pleural fluid 08/25/2024 6:56 PM EDT [facility] ([facility]) Chylomicron Screen, Body Fluid Absent Absent 08/25/2024 6:56 PM EDT [facility] ([facility]) Fluid Pleural fluid specimen / Unknown 08/17/2024 10:57 AM EDT 08/17/2024 11:10 AM EDT Narrative [facility] ([facility]) - 08/25/2024 6:56 PM EDT INTERPRETIVE INFORMATION: Triglycerides, Fluid For information on body fluid reference ranges and/or interpretive guidance visit [email or web address] This test was developed and its performance characteristics determined by [facility]. It has not been cleared or approved by the US Food and Drug Administration. This test was performed in a CLIA certified laboratory and is intended for clinical purposes. Chylomicrons were not detected. This appears to be a nonchylous fluid. INTERPRETIVE INFORMATION: Chylomicron Screen, Body Fluid This test was developed and its performance characteristics determined by [facility]. It has not been cleared or approved by the U.S. Food and Drug Administration. This test was performed in a CLIA-certified laboratory and is intended for clinical purposes. Performed By: [facility] [address] [place] [address] Social Science Manager: Austin Bernal MD, PhD CLIA Number: [id number] Boby Rouse APRN LAB REF LAB BLOOD AND FLUID ORD Final Result [facility] ([facility]) [address] [id number] * Cytology - Pleural Right (08/17/2024 10:57 AM EDT) Case Report Cytology Case: [id number] Authorizing Provider: Boby Roues APRN Collected: 08/17/2024 1057 Ordering Location: [facility] H Inpatient Received: 08/17/2024 1347 Pathologist: Jayme Duran MD Specimen: Pleural Fluid, Right, RIGHT PLEURAL FLUID 08/20/2024 2:29 PM EDT [facility] Final Diagnosis A. RIGHT PLEURAL FLUID - PREDOMINANTLY CHRONIC INFLAMMATION IN A BACKGROUND OF REACTIVE MESOTHELIAL CELLS AND HISTIOCYTES - NEGATIVE FOR MALIGNANCY 08/20/2024 2:29 PM EDT [facility] at 1429 EDT Clinical History Pleural effusion 08/20/2024 2:29 PM EDT [facility] Previous Cancer Primary Site Other/Unknown Primary Site 08/20/2024 2:29 PM EDT [facility] Gross Description A. RIGHT PLEURAL FLUID 100 ml's laurent fluid processed as thin prep and cell block Cold Time: 5h 02m 08/20/2024 2:29 PM EDT [facility] Fluid Structure of right pleural cavity / Unknown 08/17/2024 10:57 AM EDT 08/17/2024 1:47 PM EDT us Boby Rouse APRN LAB CYTOLOGY ORDERABLES Fin al Result [facility] [address] [place] [address] * Glucose - Pleural Right (08/17/2024 10:57 AM EDT) Glucose, Fluid 309 mg/dL 08/17/2024 1:14 PM EDT [facility] Pleural Fluid Structure of right pleural cavity / Unknown Non-blood Collection / Unknown 08/17/2024 10:57 AM EDT 08/17/2024 11:08 AM EDT Narrative [facility] - 08/17/2024 1:14 PM EDT Pleural [...] BODY FLUIDS AND STOOLS ORDERABLES Final Result [facility] [address] [place] [address] * Albumin - Pleural Right (08/17/2024 10:57 AM EDT) Albumin, Pleural Fluid 1.8 g/dL 08/17/2024 1:14 PM EDT [facility] Pleural Fluid Structure of right pleural cavity / Unknown Non-blood Collection / Unknown 08/17/2024 10:57 AM EDT 08/17/2024 11:08 AM EDT Narrative [facility] - 08/17/2024 1:14 PM EDT REPORTING RESULTS Reference Values: No established reference interval. Results should be interpreted in comparison to the concentration in blood and in conjunction with the clinical context. This test was developed and its performance characteristics determined by [facility]. The U.S. Food and Drug Administration has not approved or cleared this test; however, FDA clearance or approval is not currently required for clinical use. The results are not intended to be used as the sole means for clinical diagnosis or patient management decisions. Boby Rouse APRN LAB BODY FLUIDS AND STOOLS ORDERABLES Final Result Performing Organization Address [facility] Co de Phone Number [facility] [address] [place] [address] * Lactate Dehydrogenase, Pleural Fluid - Right (08/17/2024 10:57 AM EDT) LDH, Fluid 121 U/L 08/17/2024 1:14 PM EDT [facility] Pleural Fluid Structure of right pleural cavity / Unknown Non-blood Collection / Unknown 08/17/2024 10:57 AM EDT 08/17/2024 11:08 AM EDT Narrative [facility] - 08/17/2024 1:14 PM EDT No [...] the following criteria are present: (1) pleural nmdmv-rm-wkzke protein ratio of >0.5, (2) pleural syvcr-ey-rqely LDH ratio of >0.6, or (3) a pleural fluid LDH activity that is >2/3 the upper limit of a normal serum LDH activity. Light's criteria may misclassify ~25% of transudates as exudates in heart failure. These can be identified by calculating a livmr-xz-fjbbptf albumin gradient (>1.2 g/dL) and/or a qfuaz-cp-vbxlc protein gradient (>3.1 g/dL). Boby Rouse APRN LAB BODY FLUIDS AND STOOLS ORDERABLES Final Result Performing Organization Address City/[facility]/ZIP Co de Phone Number [facility] [address] [place] [address] * Total Protein, Pleural Fluid - Pleural Right (08/17/2024 10:57 AM EDT) Total Protein, Fluid 3.1 g/dL 08/17/2024 1:14 PM EDT [facility] Pleural Fluid Structure of right pleural cavity / Unknown Non-blood Collection / Unknown 08/17/2024 10:57 AM EDT 08/17/2024 11:08 AM EDT Narrative [facility] - 08/17/2024 1:14 PM EDT This test was developed and its performance characteristics determined by [facility]. The U.S. Food and Drug Administration has not approved or cleared this test. However, FDA clearance or approval is not currently required for clinical use. The results are not intended to be used as the sole means for clinical diagnosis or patient management decisions. Boby Rouse APRN LAB BODY FLUIDS AND STOOLS ORDERABLES Final Result [facility] [address] [place] [address] * Body Fluid Culture and Gram Stain - Pleural Right (08/17/2024 10:57 AM EDT) Culture No growth at day 4 2024 8:02 AM EDT [facility] Gram Stain Result Few Polymorphonuclear leukocytes 08/20/2024 8:02 AM EDT [facility] Gram Stain Result No organisms seen 08/20/2024 8:02 AM EDT [facility] Pleural Fluid Specimen from pleura obtained by thoracentesis / Unknown Non-blood Collection / Unknown 08/17/2024 10:57 AM EDT 08/17/2024 11:14 AM EDT us Boby Rouse APRN LAB MICROBIOLOGY - GENERAL ORDERABLES Final Result [facility] [address] [place] [address] * (ABNORMAL) POCT glucose meter (08/17/2024 7:39 AM EDT) Pathologist [facility] POCT Glucose 232(H) 74 - 99 mg/dL [...] Comment 08/17/2024 7:51 AM EDT [facility] Mild Disabilities Teacher ID Partha Zhu 08/18/19 7:51 AM EDT [facility] Device ID [id number] 08/17/2024 7:51 AM EDT [facility] Specimen Type POC Capillary 08/17/2024 7:51 AM EDT [facility] Blood Capillary blood specimen / Unknown 08/17/2024 7:39 AM EDT 08/17/2024 7:51 AM EDT us Kenneth James MD LAB POINT OF CARE TE ST DOCKED DEVICE UNSOLICITED RESULTS Final Result Performing Organization Address City/[facility]/ZIP Co de Phone Number [facility] [address] [place] [address] * (ABNORMAL) Prothrombin Time/INR (08/17/2024 4:28 AM EDT) Prothrombin Time 18.7(H) 12.0 - 14.3 sec LAB COAGULATION METHOD 08/17/2024 4:58 AM EDT [facility] INR 1.5(H) 0.9 - 1.1 LAB COAGULATION METHOD 08/17/2024 4:58 AM EDT [facility] Blood Venous blood specimen / Unknown Venipuncture / Unknown 08/17/2024 4:28 AM EDT 08/17/2024 4:42 AM EDT Narrative [facility] - 08/17/2024 4:58 AM EDT OPTIMAL INR RANGES FOR PATIENT ON ORAL ANTICOAGULANT THERAPY Prevention of venous thromboembolism INR 2.0 to 3.0 In patients with heart disease: Atrial fibrillation INR 2.0 to 3.0 Valvular heart disease INR 2.0 to 3.0 Tissue heart valves INR 2.0 to 3.0 Mechanical prosthetic valves INR 2.5 to 3.[address] INR 2.5 to 3.5 us Kenneth James MD LAB BLOOD ORDERABLES Final Res ult [facility] [address] [place] [address] * (ABNORMAL) CBC W/O Differential (08/17/2024 4:28 AM EDT) WBC Count 5.50 3.70 - 10.30 10*3/uL LAB HEMATOLOGY METHOD 08/17/2024 4:52 AM EDT [facility] RBC Count 3.46(L) 3.90 - 5.20 10*6/uL LAB HEMATOLOGY METHOD 08/17/2024 4:52 AM EDT [facility] HGB 10.1(L) 11.2 - 15.7 g/dL LAB HEMATOLOGY METHOD 08/17/2024 4:52 AM EDT [facility] HCT 32.2(L) 34.0 - 45.0 % LAB HEMATOLOGY METHOD 08/17/2024 4:52 AM EDT [facility] Platelet Count 396(H) 155 - 369 10*3/uL LAB HEMATOLOGY METHOD 08/17/2024 4:52 AM EDT [facility] MCV 93 79 - 98 fL LAB HEMATOLOGY METHOD 08/17/2024 4:52 AM EDT [facility] MCH 29.2 26.0 - 32.0 pg LAB HEMATOLOGY METHOD 08/17/2024 4:52 AM EDT [facility] MCHC 31.4 30.7 - 35.5 g/dL LAB HEMATOLOGY METHOD 08/17/2024 4:52 AM EDT [facility] RDW 14.2 11.5 - 14.5 % LAB HEMATOLOGY METHOD 08/17/2024 4:52 AM EDT [facility] MPV 9.3 8.8 - 12.5 fL LAB HEMATOLOGY METHOD 08/17/2024 4:52 AM EDT [facility] nRBC 0.0 <=0.0 per 100 WBCs LAB HEMATOLOGY METHOD 08/17/2024 4:52 AM EDT [facility] Blood Venous blood specimen / Unknown Venipuncture / Unknown 08/17/2024 4:28 AM EDT 08/17/2024 4:42 AM EDT Doron Thayer MD LAB BLOOD ORDERABLES Final Resu lt Performing Organization Address City/[facility]/ZIP Co de Phone Number [facility] [address] [place] [address] * (ABNORMAL) Magnesium (08/17/2024 4:28 AM EDT) Magnesium, Plasma 1.8(L) 1.9 - 2.4 mg/dL 08/17/2024 5:15 AM EDT [facility] Blood Venous blood specimen / Unknown Venipuncture / Unknown 08/17/2024 4:28 AM EDT 08/17/2024 4:42 AM EDT Doron Thayer MD LAB BLOOD ORDERABLES Final Resu lt [facility] [address] [place] [address] * (ABNORMAL) Comprehensive metabolic panel (08/17/2024 4:28 AM EDT) Glucose, Plasma 216(H) 74 - 99 mg/dL 08/17/2024 5:15 AM EDT [facility] BUN, Plasma 22 8 - 23 mg/dL 08/17/2024 5:15 AM EDT [facility] Creatinine, Plasma 0.98 0.60 - 1.10 mg/dL 08/17/2024 5:15 AM EDT [facility] BUN/Creatinine Ratio 22 08/17/2024 5:15 AM EDT [facility] Sodium, Plasma 135(L) 136 - 145 mmol/L 08/17/2024 5:15 AM EDT [facility] Potassium, Plasma 3.4(L) 3.6 - 4.9 mmol/L 08/17/2024 5:15 AM EDT [facility] Chloride, Plasma 91(L) 97 - 107 mmol/L 08/17/2024 5:15 AM EDT [facility] CO2, Plasma 33(H) 22 - 29 mmol/L 08/17/2024 5:15 AM EDT [facility] Anion Gap 11 6 - 16 mmol/L 08/17/2024 5:15 AM EDT [facility] Total Calcium, Plasma 9.0 8.9 - 10.2 mg/dL 08/17/2024 5:15 AM EDT [facility] Total Protein 7.3 6.3 - 7.9 g/dL 08/17/2024 5:15 AM EDT [facility] Albumin, Plasma 3.3(L) 3.5 - 5.2 g/dL 08/17/2024 5:15 AM EDT [facility] AST, Plasma 29 10 - 35 U/L 08/17/2024 5:15 AM EDT [facility] ALT, Plasma 19 10 - 35 U/L 08/17/2024 5:15 AM EDT [facility] Alkaline Phosphatase, Plasma 100 46 - 142 U/L 08/17/2024 5:15 AM EDT [facility] Total Bilirubin, Plasma 0.4 0.2 - 1.1 mg/dL 08/17/2024 5:15 AM EDT [facility] eGFRcr 61.1 mL/min/1.7 3m*2 08/17/2024 5:15 AM EDT [facility] Comment:Reported eGFRcr in m L/min/1.73m2 is based the CKD-EPI 2020 equation that does not use a race coefficient. Blood Venous blood specimen / Unknown Venipuncture / Unknown 08/17/2024 4:28 AM EDT 08/17/2024 4:42 AM EDT Doron Thayer MD LAB BLOOD ORDERABLES Final Resu lt Performing Organization Address City/[facility]/ZIP Co de Phone Number [facility] [address] [place] [address] * (ABNORMAL) Lactate dehydrogenase (08/17/2024 4:28 AM EDT) [facility] [address] LDH, Plasma 322(H) 116 - 250 U/L 08/17/2024 5:15 AM EDT [facility] Blood Venous blood specimen / Unknown Venipuncture / Unknown 08/17/2024 4:28 AM EDT 08/17/2024 4:42 AM EDT us Boby Rouse APRN LAB BLOOD ORDERABLES Final Result Performing Organization Address City/[facility]/ZIP Co de Phone Number [facility] [address] [place] [address] * (ABNORMAL) POCT glucose meter (08/16/2024 8:03 PM EDT) [facility] [address] POCT Glucose 356(H) 74 - 99 mg/dL [...] 08/16/2024 8:05 PM EDT [facility] Mild Disabilities Teacher ID Chris Del Realzo 08/16/2024 8:05 PM EDT [facility] Device ID [id number] 08/16/2024 8:05 PM EDT [facility] Specimen Type POC Capillary 08/16/2024 8:05 PM EDT [facility] Blood Capillary blood specimen / Unknown 08/16/2024 8:03 PM EDT 08/16/2024 8:05 PM EDT Doron Thayer MD LAB POINT OF CARE TE ST DOCKED DEVICE UNSOLICITED RESULTS Final Result Performing Organization Address [facility] de Phone Number [facility] [address] [place] [address] * (ABNORMAL) POCT glucose meter (08/16/2024 4:12 PM EDT) Pathologist [facility] POCT Glucose 173(H) 74 - 99 mg/dL [...] Comment 08/16/2024 4:14 PM EDT [facility] Mild Disabilities Teacher ID Paula Wright 4:14 PM EDT [facility] Device ID [id number] 08/16/2024 4:14 PM EDT [facility] Specimen Type POC Capillary 08/16/2024 4:14 PM EDT [facility] Blood Capillary blood specimen / Unknown 08/16/2024 4:12 PM EDT 08/16/2024 4:14 PM EDT Doron Thayer MD LAB POINT OF CARE TE ST DOCKED DEVICE UNSOLICITED RESULTS Final Result Performing Organization Address City/[facility] Co de Phone Number [facility] [address] [place] [address] * (ABNORMAL) POCT glucose meter (08/16/2024 11:03 AM EDT) Pathologist [facility] POCT Glucose 217(H) 74 - 99 mg/dL [...] 08/16/2024 11:05 AM EDT [facility] Mild Disabilities Teacher ID Alicia Licea 025 11:05 AM EDT [facility] Device ID [id number] 08/16/2024 11:05 AM EDT [facility] Specimen Type POC Capillary 08/16/2024 11:05 AM EDT [facility] Blood Capillary blood specimen / Unknown 08/16/2024 11:03 AM EDT 08/16/2024 11:05 AM EDT us Doron Thayer MD LAB POINT OF CARE TE ST DOCKED DEVICE UNSOLICITED RESULTS Final Result Performing Organization Address City/[facility] Co de Phone Number [facility] [address] [place] [address] * (ABNORMAL) POCT glucose meter (08/16/2024 7:44 AM EDT) [facility] [address] POCT Glucose 190(H) 74 - 99 mg/dL [...] Comment 08/16/2024 7:52 AM EDT [facility] Mild Disabilities Teacher ID Paula Wright 7:52 AM EDT [facility] Device ID [id number] 08/16/2024 7:52 AM EDT [facility] Specimen Type POC Capillary 08/16/2024 7:52 AM EDT [facility] Blood Capillary blood specimen / Unknown 08/16/2024 7:44 AM EDT 08/16/2024 7:52 AM EDT us Doron Thayer MD LAB POINT OF CARE TE ST DOCKED DEVICE UNSOLICITED RESULTS Final Result [facility] [address] [place] [address] * (ABNORMAL) Prothrombin Time/INR (08/16/2024 1:46 AM EDT) Prothrombin Time 24.3(H) 12.0 - 14.3 sec 08/16/2024 2:01 AM EDT [facility] INR 2.2(H) 0.9 - 1.1 08/16/2024 2:01 AM EDT [facility] Blood Venous blood specimen / Unknown Venipuncture / Unknown 08/16/2024 1:46 AM EDT 08/16/2024 1:48 AM EDT Narrative [facility] - 08/16/2024 2:01 AM EDT OPTIMAL INR RANGES FOR PATIENT ON ORAL ANTICOAGULANT THERAPY Prevention of venous thromboembolism INR 2.0 to 3.0 In patients with heart disease: Atrial fibrillation INR 2.0 to 3.0 Valvular heart disease INR 2.0 to 3.0 Tissue heart valves INR 2.0 to 3.0 Mechanical prosthetic valves INR 2.5 to 3.[address] INR 2.5 to 3.5 us Kenneth James MD LAB BLOOD ORDERABLES Final Res ult Performing Organization Address [facility] Co de Phone Number [facility] [address] [place] [address] * (ABNORMAL) CBC W/O Differential (08/16/2024 1:46 AM EDT) WBC Count 6.57 3.70 - 10.30 10*3/uL LAB HEMATOLOGY METHOD 08/16/2024 1:50 AM EDT [facility] RBC Count 3.22(L) 3.90 - 5.20 10*6/uL LAB HEMATOLOGY METHOD 08/16/2024 1:50 AM EDT [facility] HGB 9.6(L) 11.2 - 15.7 g/dL LAB HEMATOLOGY METHOD 08/16/2024 1:50 AM EDT [facility] HCT 29.6(L) 34.0 - 45.0 % LAB HEMATOLOGY METHOD 08/16/2024 1:50 AM EDT [facility] Platelet Count 376(H) 155 - 369 10*3/uL LAB HEMATOLOGY METHOD 08/16/2024 1:50 AM EDT [facility] MCV 92 79 - 98 fL LAB HEMATOLOGY METHOD 08/16/2024 1:50 AM EDT [facility] MCH 29.8 26.0 - 32.0 pg LAB HEMATOLOGY METHOD 08/16/2024 1:50 AM EDT [facility] MCHC 32.4 30.7 - 35.5 g/dL LAB HEMATOLOGY METHOD 08/16/2024 1:50 AM EDT [facility] RDW 14.3 11.5 - 14.5 % LAB HEMATOLOGY METHOD 08/16/2024 1:50 AM EDT [facility] MPV 9.3 8.8 - 12.5 fL LAB HEMATOLOGY METHOD 08/16/2024 1:50 AM EDT [facility] nRBC 0.0 <=0.0 per 100 WBCs LAB HEMATOLOGY METHOD 08/16/2024 1:50 AM EDT [facility] Blood Venous blood specimen / Unknown Venipuncture / Unknown 08/16/2024 1:46 AM EDT 08/16/2024 1:48 AM EDT us Doron Thayer MD LAB BLOOD ORDERABLES Final Resu lt Performing Organization Address City/[facility]/ZIP Co de Phone Number [facility] [address] [place] [address] * (ABNORMAL) Magnesium (08/16/2024 1:46 AM EDT) Magnesium, Plasma 1.5(L) 1.9 - 2.4 mg/dL 08/16/2024 2:28 AM EDT [facility] Blood Venous blood specimen / Unknown Venipuncture / Unknown 08/16/2024 1:46 AM EDT 08/16/2024 1:57 AM EDT us Doron Thayer MD LAB BLOOD ORDERABLES Final Resu lt Performing Organization Address City/[facility]/ZIP Co de Phone Number [facility] [address] [place] [address] * (ABNORMAL) Basic metabolic panel (08/16/2024 1:46 AM EDT) Glucose, Plasma 271(H) 74 - 99 mg/dL 08/16/2024 2:28 AM EDT [facility] BUN, Plasma 19 8 - 23 mg/dL 08/16/2024 2:28 AM EDT [facility] Creatinine, Plasma 0.82 0.60 - 1.10 mg/dL 08/16/2024 2:28 AM EDT [facility] BUN/Creatinine Ratio 23 08/16/2024 2:28 AM EDT [facility] Sodium, Plasma 132(L) 136 - 145 mmol/L 08/16/2024 2:28 AM EDT [facility] Potassium, Plasma 4.0 3.6 - 4.9 mmol/L 08/16/2024 2:28 AM EDT [facility] Chloride, Plasma 96(L) 97 - 107 mmol/L 08/16/2024 2:28 AM EDT [facility] CO2, Plasma 27 22 - 29 mmol/L 08/16/2024 2:28 AM EDT [facility] Anion Gap 9 6 - 16 mmol/L 08/16/2024 2:28 AM EDT [facility] Total Calcium, Plasma 8.5(L) 8.9 - 10.2 mg/dL 08/16/2024 2:28 AM EDT [facility] eGFRcr 75.6 mL/min/1.7 3m*2 08/16/2024 2:28 AM EDT [facility] Comment:Reported eGFRcr in m L/min/1.73m2 is based the CKD-EPI 2020 equation that does not use a race coefficient. Blood Venous blood specimen / Unknown Venipuncture / Unknown 08/16/2024 1:46 AM EDT 08/16/2024 1:57 AM EDT us Doron Thayer MD LAB BLOOD ORDERABLES Final Resu lt [facility] [address] [place] [address] * (ABNORMAL) POCT glucose meter (08/15/2024 9:37 PM EDT) [facility] [address] POCT Glucose 235(H) 74 - 99 mg/dL [...] Comment 08/15/2024 9:38 PM EDT [facility] Mild Disabilities Teacher ID Laura Cope 08/15/2024 9:38 PM EDT [facility] LAB Device ID [id number] 08/15/2024 9:38 PM EDT [facility] Specimen Type POC Capillary 08/15/2024 9:38 PM EDT [facility] Blood Capillary blood specimen / Unknown 08/15/2024 9:37 PM EDT 08/15/2024 9:38 PM EDT Doron Thayer MD LAB POINT OF CARE TE ST DOCKED DEVICE UNSOLICITED RESULTS Final Result Performing Organization Address City/State/[facility] Co de Phone Number [facility] [address] [place] [address] * (ABNORMAL) POCT glucose meter (08/15/2024 6:03 PM EDT) [facility] [address] POCT Glucose 184(H) 74 - 99 mg/dL [...] 08/15/2024 6:06 PM EDT [facility] Mild Disabilities Teacher ID Hoda Skinner 025 6:06 PM EDT [facility] Device ID [id number] 08/15/2024 6:06 PM EDT [facility] Specimen Type POC Capillary 08/15/2024 6:06 PM EDT [facility] Blood Capillary blood specimen / Unknown 08/15/2024 6:03 PM EDT 08/15/2024 6:06 PM EDT Arben Ibarra MD LAB POINT OF CARE TE ST DOCKED DEVICE UNSOLICITED RESULTS Final Result Performing Organization Address City/[facility]/ZIP Co de Phone Number [facility] [address] [place] [address] * (ABNORMAL) POCT glucose meter (08/15/2024 4:20 [...] Comment 08/15/2024 4:26 PM EDT [facility] Mild Disabilities Teacher ID Hoda Skinner 025 4:26 PM EDT [facility] Device ID [id number] 08/15/2024 4:26 PM EDT [facility] Specimen Type POC Capillary 08/15/2024 4:26 PM EDT [facility] Blood Capillary blood specimen / Unknown 08/15/2024 4:20 PM EDT 08/15/2024 4:26 PM EDT Arben Ibarra MD LAB POINT OF CARE TE ST DOCKED DEVICE UNSOLICITED RESULTS Final Result [facility] [address] [place] [address] * (ABNORMAL) POCT glucose meter (08/15/2024 1:00 [...] Comment 08/15/2024 1:02 PM EDT [facility] Mild Disabilities Teacher ID Hoda Skinner 025 1:02 PM EDT [facility] LAB Device ID [id number] 08/15/2024 1:02 PM EDT [facility]ALTH[facility] Specimen Type POC Capillary 08/15/2024 1:02 PM EDT [facility] Blood Capillary blood specimen / Unknown 08/15/2024 1:00 PM EDT 08/15/2024 1:02 PM EDT Arben Ibarra MD LAB POINT OF CARE TE ST DOCKED DEVICE UNSOLICITED RESULTS Final Result Performing Organization Address City/State/[facility] Co de Phone Number HEALTHCARE [facility] [address] [place] [address] * (ABNORMAL) POCT glucose meter (08/15/2024 12:14 PM EDT) [facility] [address] POCT Glucose 123(H) 74 - 99 mg/dL 08/15/2024 12:20 PM EDT HEALTHCARE [facility] Comment:Accuracy of a [...] Comment 08/15/2024 12:20 PM EDT HEALTHCARE LAB Mild Disabilities Teacher ID Hoda Skinner 025 12:20 PM EDT HEALTHCARE LAB Device ID [id number] 08/15/2024 12:20 PM EDT HEALTHCARE LAB Specimen Type POC Capillary 08/15/2024 12:20 PM EDT [facility] LAB Blood Capillary blood specimen / Unknown 08/15/2024 12:14 PM EDT 08/15/2024 12:20 PM EDT us Arben Ibarra MD LAB POINT OF CARE TE ST DOCKED DEVICE UNSOLICITED RESULTS Final Result [facility] [address] [place] [address] * XR Chest 1 View (08/15/2024 9:22 [...] QTC Interval 546 ms MUSE ECG R [place] -70 degrees MUSE ECG T Wave [place] 119 degrees MUSE ECG Diagnosis Ventricular-pa amber rhythm MUSE ECG Diagnosis Abnormal ECG MUSE ECG Diagnosis MUSE ECG Diagnosis Compared to last ECG MUSE ECG Diagnosis No significant change was found MUSE ECG Diagnosis Confirmed by Cristian Irwin ([id number]) on 08/15/2024 10:42:20 AM MUSE ECG 08/15/2024 8:51 AM EDT 08/15/2024 10:42 AM EDT Arben Ibarra MD ECG ORDERABLES Final Result Performing Organization Address City/[facility]/ZIP Co de Phone Number MUSE ECG * (ABNORMAL) POCT glucose meter (08/15/2024 7:52 AM EDT) Pathologist [facility] POCT Glucose 175(H) 74 - 99 mg/dL [...] Comment 08/15/2024 7:56 AM EDT HEALTHCARE LAB Mild Disabilities Teacher ID Hoda Skinner 025 7:56 AM EDT HEALTHCARE LAB Device ID [id number] 08/15/2024 7:56 AM EDT HEALTHCARE LAB Specimen Type POC Capillary 08/15/2024 7:56 AM EDT [facility]ALTHCARE LAB Blood Capillary blood specimen / Unknown 08/15/2024 7:52 AM EDT 08/15/2024 7:56 AM EDT Arben Ibarra MD LAB POINT OF CARE TE ST DOCKED DEVICE UNSOLICITED RESULTS Final Result [facility] [address] [place] [address] * (ABNORMAL) POCT glucose meter (08/15/2024 6:27 [...] Comment 08/15/2024 6:29 AM EDT HEALTHCARE LAB Mild Disabilities Teacher ID Manuel Tabares 08/15/2024 6:29 AM EDT HEALTHCARE LAB Device ID [id number] 08/15/2024 6:29 AM EDT HEALTHCARE LAB Specimen Type POC Capillary 08/15/2024 6:29 AM EDT HEALTHCARE LAB Blood Capillary blood specimen / Unknown 08/15/2024 6:27 AM EDT 08/15/2024 6:29 AM EDT Arben Ibarra MD LAB POINT OF CARE TE ST DOCKED DEVICE UNSOLICITED RESULTS Final Result [facility] [address] [place] [address] * POCT glucose meter (08/15/2024 6:07 AM EDT) [facility] [address] POCT Glucose 95 74 - 99 mg/dL [...] Comment 08/15/2024 6:08 AM EDT HEALTHCARE LAB Mild Disabilities Teacher ID Manuel Tabares 08/15/2024 6:08 AM EDT HEALTHCARE LAB Device ID [id number] 08/15/2024 6:08 AM EDT HEALTHCARE LAB Specimen Type POC Capillary 08/15/2024 6:08 AM EDT HEALTHCARE LAB Blood Capillary blood specimen / Unknown 08/15/2024 6:07 AM EDT 08/15/2024 6:08 AM EDT Arben Ibarra MD LAB POINT OF CARE TE ST DOCKED DEVICE UNSOLICITED RESULTS Final Result Performing Organization Address [facility] de Phone Number HEALTHCARE LAB [address] [place] [address] * (ABNORMAL) POCT glucose meter (08/15/2024 5:46 [...] for testing. Comment 08/15/2024 5:48 AM EDT [facility] Mild Disabilities Teacher ID Manuel Tabares 08/15/2024 5:48 AM EDT [facility] Device ID [id number] 08/15/2024 5:48 AM EDT [facility] Specimen Type POC Capillary 08/15/2024 5:48 AM EDT [facility] Blood Capillary blood specimen / Unknown 08/15/2024 5:46 AM EDT 08/15/2024 5:48 AM EDT Arben Ibarra MD LAB POINT OF CARE TE ST DOCKED DEVICE UNSOLICITED RESULTS Final Result Performing Organization Address City/[facility] Co de Phone Number [facility] [address] [place] [address] * (ABNORMAL) POCT glucose meter (08/15/2024 5:25 [...] Comment 08/15/2024 5:26 AM EDT HEALTHCARE LAB Mild Disabilities Teacher ID Manuel Tabares 08/15/2024 5:26 AM EDT HEALTHCARE LAB Device ID [id number] 08/15/2024 5:26 AM EDT HEALTHCARE LAB Specimen Type POC Capillary 08/15/2024 5:26 AM EDT [facility]ALTHCARE LAB Blood Capillary blood specimen / Unknown 08/15/2024 5:25 AM EDT 08/15/2024 5:26 AM EDT us Arben Ibarra MD LAB POINT OF CARE TE ST DOCKED DEVICE UNSOLICITED RESULTS Final Result [facility] [address] [place] [address] * (ABNORMAL) Blood gas panel, arterial (08/15/2024 5:01 AM EDT) pH, Arterial 7.46(H) 7.31 - 7.42 LAB HEMATOLOGY METHOD 08/15/2024 5:14 AM EDT [facility] pCO2, Arterial 46 35 - 48 mmHg LAB HEMATOLOGY METHOD 08/15/2024 5:14 AM EDT [facility] pO2, Arterial 70(L) >70 mmHg LAB HEMATOLOGY METHOD 08/15/2024 5:14 AM EDT [facility] SO2, Measured, Arterial 95 94 - 98 % LAB HEMATOLOGY METHOD 08/15/2024 5:14 AM EDT [facility] Base Excess, Arterial 7.4(H) -2.0 - 3.0 mmol/L LAB HEMATOLOGY METHOD 08/15/2024 5:14 AM EDT [facility] Bicarbonate, Calculated, Arterial 32(H) 22 - 26 mmol/L LAB HEMATOLOGY METHOD 08/15/2024 5:14 AM EDT [facility] Hematocrit, Whole Blood 30.3(L) 34.0 - 45.0 % LAB HEMATOLOGY METHOD 08/15/2024 5:14 AM EDT [facility] Sodium, Whole Blood 137 136 - 145 mmol/L LAB HEMATOLOGY METHOD 08/15/2024 5:14 AM EDT [facility] Potassium, Whole Blood 3.0(L) 3.6 - 4.9 mmol/L LAB HEMATOLOGY METHOD 08/15/2024 5:14 AM EDT [facility] Chloride, Whole Blood 96(L) 97 - 107 mmol/L LAB HEMATOLOGY METHOD 08/15/2024 5:14 AM EDT [facility] Glucose, Whole Blood 75 74 - 99 mg/dL LAB HEMATOLOGY METHOD 08/15/2024 5:14 AM EDT [facility] Ionized Calcium, Whole Blood 4.6 4.6 - 5.1 mg/dL LAB HEMATOLOGY METHOD 08/15/2024 5:14 AM EDT [facility] Lactate, Arterial, Whole Blood 0.7 0.5 - 1.6 mmol/L LAB HEMATOLOGY METHOD 08/15/2024 5:14 AM EDT [facility] Blood Arterial blood specimen / Unknown Arterial Puncture / Unknown 08/15/2024 5:01 AM EDT 08/15/2024 5:13 AM EDT [facility] Ashish Vargas MD LAB BLOOD ORDERABLES Final R esult [facility] [address] [place] [address] * (ABNORMAL) Prothrombin Time/INR (08/15/2024 4:52 AM EDT) Prothrombin Time 24.4(H) 12.0 - 14.3 sec 08/15/2024 5:08 AM EDT [facility] INR 2.2(H) 0.9 - 1.1 08/15/2024 5:08 AM EDT [facility] Blood Venous blood specimen / Unknown Venipuncture / Unknown 08/15/2024 4:52 AM EDT 08/15/2024 4:55 AM EDT Narrative [facility] - 08/15/2024 5:08 AM EDT OPTIMAL INR RANGES FOR PATIENT ON ORAL ANTICOAGULANT THERAPY Prevention of venous thromboembolism INR 2.0 to 3.0 In patients with heart disease: Atrial fibrillation INR 2.0 to 3.0 Valvular heart disease INR 2.0 to 3.0 Tissue heart valves INR 2.0 to 3.0 Mechanical prosthetic valves INR 2.5 to 3.[address] INR 2.5 to 3.5 Kenneth James MD LAB BLOOD ORDERABLES Final Res ult Performing Organization Address [facility] Co de Phone Number [facility] [address] [place] [address] * Vitamin D 25 Hydroxy (08/15/2024 4:52 AM EDT) Vitamin D 25 Hydroxy 51.5 20.0 - 80.0 ng/mL 08/15/2024 6:37 AM EDT [facility] Blood Venous blood specimen / Unknown Venipuncture / Unknown 08/15/2024 4:52 AM EDT 08/15/2024 4:59 AM EDT Narrative [facility] - 08/15/2024 6:37 AM EDT Testing performed on [employer] Avanza, standardized against NIST SRM [id number]. When testing [...] ORDERABLES Final Re sult Performing Organization Address [facility] Co de Phone Number [facility] [address] [place] [address] * (ABNORMAL) N-Terminal Probnp, Plasma (08/15/2024 4:52 AM EDT) N-Terminal, PROBNP, Plasma 6,053(H) 0 - 899 pg/mL 08/15/2024 5:32 AM EDT [facility] Blood Venous blood specimen / Unknown Venipuncture / Unknown 08/15/2024 4:52 AM EDT 08/15/2024 4:59 AM EDT us Arben Ibarra MD LAB BLOOD ORDERABLES Final Re sult Performing Organization Address [facility] Co de Phone Number [facility] [address] [place] [address] * Phosphorus (08/15/2024 4:52 AM EDT) Phosphorus, Plasma 3.2 2.5 - 4.5 mg/dL 08/15/2024 5:32 AM EDT [facility] Blood Venous blood specimen / Unknown Venipuncture / Unknown 08/15/2024 4:52 AM EDT 08/15/2024 4:59 AM EDT us Arben Ibarra MD LAB BLOOD ORDERABLES Final Re sult Performing Organization Address [facility] de Phone Number [facility] [address] [place] [address] * Magnesium (08/15/2024 4:52 AM EDT) Magnesium, Plasma 1.9 1.9 - 2.4 mg/dL 08/15/2024 5:32 AM EDT [facility] Blood Venous blood specimen / Unknown Venipuncture / Unknown 08/15/2024 4:52 AM EDT 08/15/2024 4:59 AM EDT us Arben Ibarra MD LAB BLOOD ORDERABLES Final Re sult Performing Organization Address [facility] Co de Phone Number [facility] [address] [place] [address] * (ABNORMAL) Basic metabolic panel (08/15/2024 4:52 AM EDT) Glucose, Plasma 75 74 - 99 mg/dL 08/15/2024 5:32 AM EDT [facility] BUN, Plasma 19 8 - 23 mg/dL 08/15/2024 5:32 AM EDT [facility] Creatinine, Plasma 0.96 0.60 - 1.10 mg/dL 08/15/2024 5:32 AM EDT [facility] BUN/Creatinine Ratio 20 08/15/2024 5:32 AM EDT [facility] Sodium, Plasma 136 136 - 145 mmol/L 08/15/2024 5:32 AM EDT [facility] Potassium, Plasma 3.1(L) 3.6 - 4.9 mmol/L 08/15/2024 5:32 AM EDT [facility] Chloride, Plasma 94(L) 97 - 107 mmol/L 08/15/2024 5:32 AM EDT [facility] CO2, Plasma 30(H) 22 - 29 mmol/L 08/15/2024 5:32 AM EDT [facility] Anion Gap 12 6 - 16 mmol/L 08/15/2024 5:32 AM EDT [facility] Total Calcium, Plasma 9.3 8.9 - 10.2 mg/dL 08/15/2024 5:32 AM EDT [facility] eGFRcr 62.6 mL/min/1.7 3m*2 08/15/2024 5:32 AM EDT [facility] Comment:Reported eGFRcr in m L/min/1.73m2 is based the CKD-EPI 2020 equation that does not use a race coefficient. Blood Venous blood specimen / Unknown Venipuncture / Unknown 08/15/2024 4:52 AM EDT 08/15/2024 4:59 AM EDT us Arben Ibarra MD LAB BLOOD ORDERABLES Final Re sult [facility] [address] [place] [address] * (ABNORMAL) CBC W/O Differential (08/15/2024 4:52 AM EDT) WBC Count 6.49 3.70 - 10.30 10*3/uL LAB HEMATOLOGY METHOD 08/15/2024 4:57 AM EDT [facility] RBC Count 3.39(L) 3.90 - 5.20 10*6/uL LAB HEMATOLOGY METHOD 08/15/2024 4:57 AM EDT [facility] HGB 10.2(L) 11.2 - 15.7 g/dL LAB HEMATOLOGY METHOD 08/15/2024 4:57 AM EDT [facility] HCT 31.2(L) 34.0 - 45.0 % LAB HEMATOLOGY METHOD 08/15/2024 4:57 AM EDT [facility] Platelet Count 419(H) 155 - 369 10*3/uL LAB HEMATOLOGY METHOD 08/15/2024 4:57 AM EDT [facility] MCV 92 79 - 98 fL LAB HEMATOLOGY METHOD 08/15/2024 4:57 AM EDT [facility] MCH 30.1 26.0 - 32.0 pg LAB HEMATOLOGY METHOD 08/15/2024 4:57 AM EDT [facility] MCHC 32.7 30.7 - 35.5 g/dL LAB HEMATOLOGY METHOD 08/15/2024 4:57 AM EDT [facility] RDW 14.3 11.5 - 14.5 % LAB HEMATOLOGY METHOD 08/15/2024 4:57 AM EDT [facility] MPV 9.1 8.8 - 12.5 fL LAB HEMATOLOGY METHOD 08/15/2024 4:57 AM EDT [facility] nRBC 0.0 <=0.0 per 100 WBCs LAB HEMATOLOGY METHOD 08/15/2024 4:57 AM EDT [facility] Blood Venous blood specimen / Unknown Venipuncture / Unknown 08/15/2024 4:52 AM EDT 08/15/2024 4:55 AM EDT Arben Ibarra MD LAB BLOOD ORDERABLES Final Re sult [facility] [address] [place] [address] * (ABNORMAL) POCT glucose meter (08/14/2024 8:54 PM EDT) [facility] [address] POCT Glucose 206(H) 74 - 99 mg/dL 08/14/2024 8:56 PM EDT [facility] Comment:Accuracy of a glucos e result [...] 08/14/2024 8:56 PM EDT [facility] Mild Disabilities Teacher ID Manuel Tabares 08/14/2024 8:56 PM EDT [facility] Device ID [id number] 08/14/2024 8:56 PM EDT [facility] Specimen Type POC Capillary 08/14/2024 8:56 PM EDT [facility]ALTH[facility]ARE [facility] Blood Capillary blood specimen / Unknown 08/14/2024 8:54 PM EDT 08/14/2024 8:56 PM EDT Arben Ibarra MD LAB POINT OF CARE TE ST DOCKED DEVICE UNSOLICITED RESULTS Final Result Performing Organization Address City/[facility] Co de Phone Number HEALTHCARE LAB [address] [place] [address] * (ABNORMAL) POCT glucose meter (08/14/2024 6:43 PM EDT) Pathologist [facility] POCT Glucose 218(H) 74 - 99 mg/dL [...] 08/14/2024 6:45 PM EDT [facility] Mild Disabilities Teacher ID Renee Barrett 025 6:45 PM EDT HEALTHCARE LAB Device ID [id number] 08/14/2024 6:45 PM EDT [facility] Specimen Type POC Capillary 08/14/2024 6:45 PM EDT [facility] Blood Capillary blood specimen / Unknown 08/14/2024 6:43 PM EDT 08/14/2024 6:45 PM EDT us Arben Ibarra MD LAB POINT OF CARE TE ST DOCKED DEVICE UNSOLICITED RESULTS Final Result Performing Organization Address City/[facility]/ZIP Co de Phone Number [facility] [address] [place] [address] * (ABNORMAL) Protime-INR (08/14/2024 6:08 PM EDT) Prothrombin Time 27.3(H) 12.0 - 14.3 sec 08/14/2024 6:24 PM EDT [facility] INR 2.6(H) 0.9 - 1.1 08/14/2024 6:24 PM EDT [facility] Blood Venous blood specimen / Unknown Venipuncture / Unknown 08/14/2024 6:08 PM EDT 08/14/2024 6:10 PM EDT Narrative [facility] - 08/14/2024 6:24 PM EDT OPTIMAL INR RANGES FOR PATIENT ON ORAL ANTICOAGULANT THERAPY Prevention of venous thromboembolism INR 2.0 to 3.0 In patients with heart disease: Atrial fibrillation INR 2.0 to 3.0 Valvular heart disease INR 2.0 to 3.0 Tissue heart valves INR 2.0 to 3.0 Mechanical prosthetic valves INR 2.5 to 3.[address] INR 2.5 to 3.5 us Arben Ibarra MD LAB BLOOD ORDERABLES [place] [address] * (ABNORMAL) Hemoglobin A1c (08/14/2024 6:08 PM EDT) Hemoglobin A1c 7.9(H) <5.7 % 08/15/2024 11:41 AM EDT [facility] Blood Venous blood specimen / Unknown Venipuncture / Unknown 08/14/2024 6:08 PM EDT 08/14/2024 6:10 PM EDT Narrative [facility] - 08/15/2024 11:41 AM EDT HA1C Interpretive Data: Diagnosis of Diabetes: Diabetic > or = 6.5% Pre-diabetic 5.7 to 6.4% Non-diabetic < or = 5.6% Glycemic Targets for Type I and Type II Diabetics: Non- Adults <7.0% Adults <6.0% Children and Adolescents <7.5% Source: [place] [employer]. Standards of medical care in diabetes,2017. Diabetes Care.2017:40 (suppl 1):S1-S135. Arben Ibarra MD LAB BLOOD ORDERABLES Final Re sult [facility] [address] [place] [address] * XR Chest 1 View (08/14/2024 3:52 [...] signing this report, I, the attending physician, attlacieat I have personally reviewed the images/data for the aboveexamination(s) and agree with the final edited report. Drafted by Sasha Cruz MD on 08/14/2024 3:55 PM Final report signed by Paola Polanco MD on 08/14/2024 3:59 PM Jackson Puente MD IMG XR PROCEDURES Final Result * (ABNORMAL) BNP (08/14/2024 2:55 PM EDT) Pathologist [facility] N-Terminal, PROBNP, Plasma 6,763(H) 0 - 899 pg/mL 08/14/2024 3:43 PM EDT [facility] Blood Venous blood specimen / Unknown Venipuncture / Unknown 08/14/2024 2:55 PM EDT 08/14/2024 2:58 PM EDT Jackson Puente MD LAB BLOOD ORDERABLES Fi nal Result [facility] [address] [place] [address] * (ABNORMAL) CBC w/diff (08/14/2024 2:55 PM EDT) Pathologist [facility] WBC Count 6.61 3.70 - 10.30 10*3/uL LAB HEMATOLOGY METHOD 08/14/2024 3:00 PM EDT [facility] RBC Count 3.43(L) 3.90 - 5.20 10*6/uL LAB HEMATOLOGY METHOD 08/14/2024 3:00 PM EDT [facility] HGB 10.2(L) 11.2 - 15.7 g/dL LAB HEMATOLOGY METHOD 08/14/2024 3:00 PM EDT [facility] HCT 31.8(L) 34.0 - 45.0 % LAB HEMATOLOGY METHOD 08/14/2024 3:00 PM EDT [facility] Platelet Count 380(H) 155 - 369 10*3/uL LAB HEMATOLOGY METHOD 08/14/2024 3:00 PM EDT [facility] MCV 93 79 - 98 fL LAB HEMATOLOGY METHOD 08/14/2024 3:00 PM EDT [facility] MCH 29.7 26.0 - 32.0 pg LAB HEMATOLOGY METHOD 08/14/2024 3:00 PM EDT [facility] MCHC 32.1 30.7 - 35.5 g/dL LAB HEMATOLOGY METHOD 08/14/2024 3:00 PM EDT [facility] RDW 14.2 11.5 - 14.5 % LAB HEMATOLOGY METHOD 08/14/2024 3:00 PM EDT [facility] MPV 9.2 8.8 - 12.5 fL LAB HEMATOLOGY METHOD 08/14/2024 3:00 PM EDT [facility] nRBC 0.0 <=0.0 per 100 WBCs LAB HEMATOLOGY METHOD 08/14/2024 3:00 PM EDT [facility] Differential Type Automated LAB HEMATOLOGY METHOD 08/14/2024 3:00 PM EDT [facility] Neutrophils % 76 % LAB HEMATOLOGY METHOD 08/14/2024 3:00 PM EDT [facility] Lymphocytes % 11 % LAB HEMATOLOGY METHOD 08/14/2024 3:00 PM EDT [facility] Monocytes % 10 % LAB HEMATOLOGY METHOD 08/14/2024 3:00 PM EDT [facility] Eosinophils % 1 % LAB HEMATOLOGY METHOD 08/14/2024 3:00 PM EDT [facility] Basophils % 1 % LAB HEMATOLOGY METHOD 08/14/2024 3:00 PM EDT [facility] Immature Granulocytes % 1 % LAB HEMATOLOGY METHOD 08/14/2024 3:00 PM EDT [facility] Neutrophils Absolute 5.05 1.60 - 6.10 10*3/uL LAB HEMATOLOGY METHOD 08/14/2024 3:00 PM EDT [facility] Lymphocytes Absolute 0.70(L) 1.20 - 3.90 10*3/uL LAB HEMATOLOGY METHOD 08/14/2024 3:00 PM EDT [facility] Monocytes Absolute 0.69 0.30 - 0.90 10*3/uL LAB HEMATOLOGY METHOD 08/14/2024 3:00 PM EDT [facility] Eosinophils Absolute 0.08 0.00 - 0.50 10*3/uL LAB HEMATOLOGY METHOD 08/14/2024 3:00 PM EDT [facility] Basophils Absolute 0.06 0.00 - 0.10 10*3/uL LAB HEMATOLOGY METHOD 08/14/2024 3:00 PM EDT [facility] Immature Granulocytes Absolute 0.03 0.00 - 0.06 10*3/uL LAB HEMATOLOGY METHOD 08/14/2024 3:00 PM EDT [facility] Blood Venous blood specimen / Unknown Venipuncture / Unknown 08/14/2024 2:55 PM EDT 08/14/2024 2:58 PM EDT Narrative [facility] - 08/14/2024 3:00 PM EDT Therapeutic decision making should be based on absolute values, rather than percentages. Jackson Puente MD LAB BLOOD ORDERABLES Fi nal Result Performing Organization Address City/[facility]/ZIP Co de Phone Number [facility] [address] [place] [address] * (ABNORMAL) Troponin now and 120 min (08/14/2024 2:55 PM EDT) Troponin T, High Sensitivity, 0 Hour 29(H) <14 ng/L 08/14/2024 3:43 PM EDT [facility] Blood Venous blood specimen / Unknown Venipuncture / Unknown 08/14/2024 2:55 PM EDT 08/14/2024 2:58 PM EDT Jackson Puente MD LAB BLOOD ORDERABLES Fi nal Result [facility] [address] [place] [address] * (ABNORMAL) Magnesium (08/14/2024 2:55 PM EDT) Magnesium, Plasma 1.6(L) 1.9 - 2.4 mg/dL 08/14/2024 3:43 PM EDT [facility] Blood Venous blood specimen / Unknown Venipuncture / Unknown 08/14/2024 2:55 PM EDT 08/14/2024 2:58 PM EDT us Jackson Puente MD LAB BLOOD ORDERABLES Fi nal Result [facility] [address] [place] [address] * (ABNORMAL) CMP (08/14/2024 2:55 PM EDT) Glucose, Plasma 282(H) 74 - 99 mg/dL 08/14/2024 3:43 PM EDT [facility] BUN, Plasma 19 8 - 23 mg/dL 08/14/2024 3:43 PM EDT [facility] Creatinine, Plasma 0.82 0.60 - 1.10 mg/dL 08/14/2024 3:43 PM EDT [facility] BUN/Creatinine Ratio 23 08/14/2024 3:43 PM EDT [facility] Sodium, Plasma 128(L) 136 - 145 mmol/L 08/14/2024 3:43 PM EDT [facility] Potassium, Plasma 3.6 3.6 - 4.9 mmol/L 08/14/2024 3:43 PM EDT [facility] Chloride, Plasma 90(L) 97 - 107 mmol/L 08/14/2024 3:43 PM EDT [facility] CO2, Plasma 25 22 - 29 mmol/L 08/14/2024 3:43 PM EDT [facility] Anion Gap 13 6 - 16 mmol/L 08/14/2024 3:43 PM EDT [facility] Total Calcium, Plasma 8.9 8.9 - 10.2 mg/dL 08/14/2024 3:43 PM EDT [facility] Total Protein 7.4 6.3 - 7.9 g/dL 08/14/2024 3:43 PM EDT [facility] Albumin, Plasma 3.6 3.5 - 5.2 g/dL 08/14/2024 3:43 PM EDT [facility] AST, Plasma 32 10 - 35 U/L 08/14/2024 3:43 PM EDT [facility] ALT, Plasma 20 10 - 35 U/L 08/14/2024 3:43 PM EDT [facility] Alkaline Phosphatase, Plasma 117 46 - 142 U/L 08/14/2024 3:43 PM EDT [facility] Total Bilirubin, Plasma 0.5 0.2 - 1.1 mg/dL 08/14/2024 3:43 PM EDT [facility] eGFRcr 75.6 mL/min/1.7 3m*2 08/14/2024 3:43 PM EDT [facility] Comment:Reported eGFRcr in m L/min/1.73m2 is based the CKD-EPI 2020 equation that does not use a race coefficient. Blood Venous blood specimen / Unknown Venipuncture / Unknown 08/14/2024 2:55 PM EDT 08/14/2024 2:58 PM EDT us Jackson Puente MD LAB BLOOD ORDERABLES Fi nal Result Performing Organization Address [facility] Co de Phone Number [facility] [address] [place] [address] * EKG now - STAT (adult) (08/14/2024 2:31 PM EDT) EKG DIAGNOSIS CLASS Abnormal MUSE ECG Ventricular Rate 60 BPM MUSE ECG Atrial Rate 28 BPM MUSE ECG QRSD Interval 192 ms MUSE ECG QT Interval 554 ms MUSE ECG QTC Interval 554 ms MUSE ECG P [place] 48 degrees MUSE ECG R [place] -66 degrees MUSE ECG T Wave [place] 114 degrees MUSE ECG Diagnosis Ventricular-pa amber [...] ORDERABLES Final R esult Performing Organization Address City/[facility] Co de Phone Number MUSE ECG documented in this encounter Visit Diagnoses Diagnosis Acute on chronic hypoxic respiratory failure- Primary Acute on chronic congestive heart failure, unspecified heart failure type (CMS/HCC) Shortness of breath Pleural effusion Unspecified pleural effusion Systemic lupus erythematosus (SLE) in adult ([facility]) Pleural effusion Unspecified pleural effusion Atrial fibrillation ([facility]) Atrial fibrillation Heart failure with preserved ejection fraction ([facility]) SLE (systemic lupus erythematosus) ([facility]) Systemic lupus erythematosus Presence of cardiac pacemaker Cardiac pacemaker in situ Acquired hypothyroidism Unspecified hypothyroidism Acute on chronic congestive heart failure ([facility]) Type 1 diabetes mellitus with other specified complication ([facility]) Acute on chronic congestive heart failure, unspecified heart failure type ([facility]) Pleural effusion Unspecified pleural effusion documented in this encounter Admitting Diagnoses Diagnosis Acute on chronic hypoxic respiratory failure Acute on chronic congestive heart failure ([facility]) documented in this encounter Administered Medications [...] Given 08/21/2024 8:58 PM EDT 10 mg fentaNYL (Sublimaze) injection As needed, Starting on Fri08/18/24 at 1543, Until Fri08/18/24 at 1623, Routine, Intraprocedure Given 08/18/2024 3:43 PM EDT 12.5 mcg folic acid (Folvite) tablet 1 mg 1 mg, Oral, Daily, First dose on Fri08/14/24 at 1730, Until Discontinued, Routine Given 08/24/2024 8:11 AM EDT 1 mg Given 08/23/2024 8:51 AM EDT 1 mg Given 08/22/2024 9:30 AM EDT 1 mg furosemide (Lasix) tablet 40 mg 40 [...] 5:50 AM EDT 15 grams of glucose hydroxychloroquine (Plaquenil) tablet 200 mg 200 mg, Oral, Daily, First dose on Fri08/15/24 at 1600, Until Discontinued, Routine Given 08/23/2024 8:08 PM EDT 200 mg Given 08/22/2024 9:18 PM EDT 200 mg Given 08/21/2024 8:57 PM EDT 200 mg insulin glargine-yfgn 100 UNIT/ML injection 9 Units [...] 4 Units Ri ght Upper Arm (Back) ipratropium-albuterol (Duo-Neb) 0.5-2.5 mg/3 mL nebulizer solution 3 mL 3 mL, Nebulization, Every 6 hours PRN, Starting on Fri08/15/24 at 0421, Until Fri08/24/24 at 1720, Routine, wheezing Given 08/15/2024 4:35 AM EDT 3 mL latanoprost (Xalatan) 0.005 % ophthalmic solution 1 drop 1 drop, Both Eyes, Nightly, First dose on 08/14/24 at 2100, Until Discontinued, Routine Given 08/23/2024 8:14 PM E DT 1 drop Given 08/22/2024 9:24 PM EDT 1 drop Given 08/21/2024 9:06 PM EDT 1 drop levothyroxine (Synthroid, Levoxyl) tablet 125 mcg 125 mcg, Oral, Every morning, First dose on Fri08/15/24 at 0600, Until Discontinued, Routine Given 08/24/2024 5:23 AM EDT 125 mcg Given 08/23/2024 6:23 AM EDT 125 mcg Given 08/22/2024 5:18 AM EDT 125 mcg lidocaine (Xylocaine) 2 % injection As needed, Starting on Fri08/18/24 at 1548, Until Fri08/18/24 at 1623, Routine, Intraprocedure Given 08/18/2024 3:48 PM EDT 5 mL Right Internal Jugul ar magic mouthwash BLM (FIRST-Mouthwash) suspension 15 mL 15 mL, Swish & Spit, 4 times daily before meals and nightly, First dose on 08/16/24 at 1700, Until Discontinued, Routine Given 08/24/2024 1:00 PM EDT 15 mL Given 08/24/2024 8:11 AM EDT 15 mL Given 08/23/2024 8:10 PM EDT 15 mL melatonin tablet 6 mg 6 mg, Oral, Nightly PRN, Starting on 08/14/24 at 2334, Until Tu08/24/24 at 1720, Routine, sleep Given 08/23/2024 8:08 [...] Given 08/22/2024 9:29 AM EDT 25 mg midazolam (Versed) injection As needed, Starting on Fri08/18/24 at 1543, Until Fri08/18/24 at 1623, Routine, Intraprocedure Given 08/18/2024 3:43 PM EDT 0.5 mg mometasone-formoterol (Dulera 100) 100-5 MCG/ACT inhaler 2 puff 2 puff, Inhalation, 2 times daily, First dose on Fri08/16/24 at 2100, Until Discontinued Given 08/23/2024 8:14 PM EDT 2 puffs Given 08/23/2024 9:10 AM EDT 2 puffs Given 08/22/2024 9:30 PM EDT 2 puffs mycophenolate (Cellcept) capsule 1,000 mg 1,000 mg, Oral, 2 times daily, First dose on Fri08/16/24 at 1145, Until Discontinued, Routine Given 08/24/2024 8:11 AM EDT 1,000 mg Given 08/23/2024 8:08 PM EDT 1,000 mg Given 08/23/2024 8:51 AM EDT 1,000 mg oxyCODONE (Roxicodone) immediate release tablet 5 mg 5 mg, Oral, Every 6 hours PRN, Starting on Lurdes 08/19/24 at 1107, Until Fri08/24/24 at 1720, Routine, moderate pain Given 08/22/2024 9:19 PM EDT 5 mg Given 08/22/2024 9:39 AM EDT 5 mg sodium chloride 0.9 % flush 10 mL [...] on Fri08/24/24 at 1345, Until Discontinued, Routine Tiotropium [place] Monohydrate (Spiriva Respimat) 2.5 MCG/ACT inhaler 2 puff 2 puff, Inhalation, Daily, First dose on Fri08/16/24 at 1600, Until Discontinued Given 08/23/2024 9:10 AM EDT 2 puffs Given 08/20/2024 8:36 AM EDT 2 puffs [...] on Fri08/15/24 at 0900, Until Discontinued, Routine 929 (Given - Provider: Kosta Dugan RN) 08 (Given - Provider: Marilee Fabian RN) 08 (Given - Provider: Kosta Dugan RN) brimonidine (AlphaGAN P) 0.2 % ophthalmic solution 1 drop 1 drop, Both Eyes, Daily, First dose on Fri08/16/24 at 1600, Until Discontinued, Routine 2122 (Given - Provider: Puja Le, EVITA) 2013 [...] on Fri08/15/24 at 0600, Until Discontinued, Routine 928 (Given [...] Discontinued, Routine 211 (Given - Provider: Puja Le, EVITA) 2009 (Given - Provider: Jennifer Carroll, EVITA) folic acid (Folvite) tablet 1 mg 1 [...] Kosta Dugan RN)2116 (Given - Provider: Puja Le, EVITA) 0851 (Given - Provider: Marilee Fabian RN)2007 (Given - Provider: Jennifer Carroll RN) 0811 (Given - Provider: Kosta Dugan RN) hydroxychloroquine (Plaquenil) tablet 200 mg 200 mg, Oral, Daily, First dose on 08/15/24 at 1600, Until Discontinued, Routine 2117 (Given - Provider: Puja Le, EVITA) 2007 (Given - Provider: Jennifer Carroll RN) insulin glargine-yfgn 100 UNIT/ML injection 7 Units (CANCELED) 7 Units, Subcutaneous, 2 times daily, First dose (after last modification) on Fri08/20/24 at 2100, Until Discontinued, Routine 0928 (Given - Provider: Kosta Dugan RN)2118 (Given - Provider: Puja Le, EVITA) 0853 [...] Units, Subcutaneous, 2 times nightly (2099 & 0300), First dose on 08/14/24 at 2100, Until Discontinued, Routine 032 (Not Given - Provider: Mary Hopper RN - Reason: Order parameters not met)2321 (Not Given - Provider: Puja Le, EVITA - Reason: Patient/family refused - Comment: secure message Dr. Eduardo Hoang informing of refusal. Pt educated) 9768 (Given - Provider: Puja Le RN)2100 (Canceled [...] Le, EVITA) 2013 (Given - Provider: Jennifer Carroll RN) [...] Dugan RN)1135 (Given - Provider: Kosta Dugan RN)1742 (Given - Provider: Kosta Dugan RN)2123 (Given - Provider: Puja Le RN) 0854 (Given - Provider: Marilee Fabian RN)1232 (Given - Provider: Marilee Fabian RN)1649 (Given - Provider: Marilee Fabian RN)2009 (Given - Provider: Jennifer Carroll, EVITA) 0811 (Given - Provider: Kosta Dugan RN)1300 (Given - Provider: Kosta Dugan RN)1700 (Canceled Entry - Provider: Automatic Discharge Provider - Comment: Automatically canceled at discontinue of medication order) magnesium oxide (Mag-Ox) tablet 400 mg (CANCELED) 400 mg, Oral, Daily, First dose on Fri08/20/24 at 0900, Until Discontinued, Routine 928 (Given - Provider: Kosta Dugan RN) metoprolol [...] in the morning.)2129 (Given - Provider: Puja Le RN) 09 (Given - Provider: Marilee Fabian RN)2013 (Given - Provider: Jennifer Carroll, EVITA) 0816 (Not Given - Provider: Kosta Dugan RN - Reason: Patient/family refused) mycophenolate (Cellcept) capsule 1,000 mg 1,000 mg, Oral, 2 times daily, First dose on Fri08/16/24 at 1145, Until Discontinued, Routine 929 (Given - Provider: Kosta Dugan RN)2116 (Given - Provider: Puja Le RN) 0851 (Given - Provider: Marilee Fabian RN)2007 (Given - Provider: Jennifer Carroll, RN) 0811 (Given - Provider: Kosta Dugan, [...] Le, EVITA) 0854 (Given - Provider: Marilee Fabian RN)2008 (Given - Provider: Jennifer Carroll, EVITA) 0811 (Given - Provider: Kosta Dugan, EVITA) spironolactone (Aldactone) tablet 12.5 mg 12.5 mg, Oral, Daily, First dose on Fri08/24/24 at 1345, Until Discontinued, Routine 1434 (Not Given - Provider: Kosta Dugan RN - Reason: Patient/family refused) Tiotropium [place] Monohydrate (Spiriva Respimat) 2.5 MCG/ACT inhaler 2 [...] Dugan, RN) 1648 (Given - Provider: Marilee Fabian RN) PRN Medication Order 08/22/2024 08/23/2024 08/24/2024 acetaminophen (Tylenol) tablet 650 mg 650 mg, Oral, Every 6 hours PRN, Starting on Fri08/17/24 at 2237, Until Fri08/24/24 at 1720, Routine, mild pain, moderate pain, headaches, fever 0046 (Given - Provider: Mary Hopper RN) 223 (Given - Provider: Jennifer Carroll RN) calcium [...] moderate pain 0939 (Given - Provider: Kosta Dugan, EVITA)2118 (Given - Provider: Puja Le, EVITA) sodium chloride 0.9 % flush 10 mL(Linked Group 3) 10 mL, Intravenous, As needed, Starting on 08/14/24 at 1710, Until Fri08/24/24 at 1720, Routine, line care Linked Groups Order Group 1: Tiotropium [place] Monohydrate (Spiriva Respimat) 2.5 MCG/ACT inhaler 2 [...] needed, Starting on 08/14/24 at 1710, Until 08/24/24 at 1720, Routine, line care Group 4: [...] Tu08/24/24 at 1720, Routine, low blood sugar Or [...] documented as of this encounter Care Teams Chart Reader Relationship Specialty Start Date End Date Alisa Kunz DO [address] [place] [phone] PCP - General Internal Medicine 03/13/21 Kodi Bustos DO [address] [phone] Surgeon Cardiothoracic Surgery 11/06/22 Sujit Arriola MD [address] [place] [id number] Consulting Physician Pulmonary Disease 11/06/22 Sujit Reyes MD [address] [phone] Referring Physician 12/04/22 documented as of this encounter
--- OUTSIDE RECORDS SUMMARY | 2024-08-27 13:30 | XMS_ITS | Encounter Summary ---
Author Organization [facility] Address [address] [place] [address] Care Team Providers Care Baker Pastry Name Role Phone Alisa Kunz Primary Care Provider +1- [phone] Encounter Details Date Type Department Care Team (Latest Contact Info) Description 08/27/2024 1:30 PM EDT Anticoagulation Visit [facility] [address] [facility] [address] [place] [address] Left ventricular apical thrombus (Primary Dx); Left ventricular apical thrombus without [place] Social History Tobacco Use Types Packs/Day Years Used Date Smoking Tobacco: Never Passive Smoke Exposure: Never Smokeless Tobacco: Never Alcohol Use Standard Drinks/Week Comments Yes 2 (1 standard drink = 0.6 oz pure alcohol) 1-2 beer at night, occassional rum AUDIT-C Answer Date Recorded Q1: How often do you have a drink containing alcohol? 4 or more times a week 02/12/2024 Q2: How many drinks containi ng alcohol do you have on a typical day when you are drinking? 1 or 2 Q3: How often do you have si x or more drinks on one occasion? Never 02/12/2024 Abuse Screen Answer Date Recorded Feels Unsafe at Home or Work/School no 02/11/2024 Feels Threatened by Someone no 06/2023 Does Anyone Try to Keep You From Having Contact with Others or Doing Things Outside Your Home? no 02/11/2024 Physical Signs of Abuse Present no 02/11/2024 Housing Stability Answer Date Recorded Current Living Arrangements home 07/2023 Potentially Unsafe Housing Conditions Not on luisa e 02/12/2024 Disabilities Answer Date Recorded Difficulty Concentrating, Remembering or Making Decisions no 02/12/2024 Difficulty Managing Errands Independently no 02/12/2024 Comments No Sex and Gender Information Value Date Recorded Sex Assigned at Female 12/30/2022 3:37 PM EDT Legal Sex Female 11:33 AM EDT Gender Identity Female 12/30/2022 3:37 PM EDT Sexual Orientation Not on file documented as of this encounter Progress Notes * Deejay Laughlin, PharmD - 08/27/2024 1:30 PM EDT [facility] Anticoagulation Clinic Progress Note Patient Demographics Method of INR reporting: [employer] Home Monitor SN [id number] Estimated OOP Cost: Indication: Left Ventricular Atypical Thrombus (~2012) Referring Provider Nanette Pryor APRN Reason patient is not on a DOAC: Goal INR: 2-3 Warfarin Start Date ~02/12/24 Reason patient is not on home monitor: [id number]: Planned Duration of Therapy Indefinite Relevant medical history: Also has lupus, has tried Eliquis Bleed Risk/History: Hx of CVA Tablets Strength: 5 mg (peach) Anticoagulation Clinic INR History Date 03/0503/17/2403/24 Total Weekly Dose 35mg 32.5 mg 30 mg 27.5 mg 30 mg 32.5 mg 32.5 mg 32.5 mg INR 3.6 3.5 3.4 1.7 1.9 2.8 2.9 2.2 2.2 2.1 Notes Fluconazole Rec'd 04/30 Spoke 05/03 Rec'd 05/11 Admitted [facility] Admitted [facility] Date 05/25 05/31 06/07 06/15 4/06/22 Total Weekly Dose 25 mg 35 mg 32.5 mg 32.5 mg 32.5 mg 32.5 mg 30 mg 32.5 mg Admission 32.5 mg INR 1.9 1.6 4.1/3.6 8</8< 2.3 2.6 2.7 3.8 3.2 1.9 - HM 1.4 - Clinic 1.32 - IT LEAD Notes Admitted Rec'd 05/27 HM 1-BILL TODAY HM 2- no leonid; In clinic HM 3 - no bill HM 4 - no bill HM 1- BILL TODAY HM 2 - no bill Rec'd 08/11 HM 3 - no bill Patient Contact Information Verbal release: Signed 03/05/24 Preferred contact number: [phone] Alternative contact number(s): [phone] (Doron) [phone] (Ruthie) [phone] (Madyson) Patient Appropriate for WarfNoCall ? No Preferred contact name: Michelle Felipe Alternative contact name(s): Doron Felipe () Ruthie Chong (Daughter) Madyson Hernandes (Daughter) Preferred contact relation: Self Lab contact information (if applicable): Subjective Findings Drug Interactions Dietary Findings Historical: duloxetine, levothyroxine, ezetimibe, furosemide Historical GLV intake (date updated): broccoli/cabbage every now and then, not much other GLV New (including OTC): GLV changes this encounter: Alcohol and Tobacco Historical: 2 beers or 1 cocktail per evening, no tobacco New: Patient Findings Positives: Change in health, Emergency department visit, Hospital admission Negatives: Signs/symptoms of thrombosis, Signs/symptoms of bleeding, Laboratory test error suspected, Change in alcohol use, Change in activity, Upcoming invasive procedure, Upcoming dental procedure, Missed doses, Extra doses, Change in medications, Change in diet/appetite, Bruising, Other complaints Comments: Patient was admitted at 08/14 with progressively worse shortness of breath. Chest XR revealed increased bilateral pleural effusions, with one on the right being significantly larger in size. A chest tube was placed during admission. Patient underwent pleurodesis and a right heart cath that revealed mild pulmonary hypertension. Patient will followed by the pulmonary clinic and was recommended close cardiology follow up. Patient was discharged on 08/24. Warfarin initially held and then restarted 08/20. Had rn documentation salad yesterday or day before with regular leaf lettuce. Started on spironolactone and Lasix at hospital. Assessment and Plan: INR was subtherapeutic today at 1.32 (2.0-3.0) on venipuncture. Home meter INR 1.9, in clinic meter1.4. Instructed patient to take a boosted dose of warfarin 7.5 mg today and then continue current regimen of warfarin 5 mg daily except 2.5 mg until recheck. Suspect INR low due to hold while hospitalized although patient was started on spironolactone at hospital discharge. Recheck INR Friday 09/01. Patient prefers testing Tuesdays. Verbal and written information provided. Michelle Tulio Felipe expresses understanding by teach back and has no further questions at this time. Home monitor information below: Test strips on hand: 8 Barcode number: [id number] Test strip LOT: [id number] EXP: 03/2026 Serial number: [id number] [id number] Supplies billing code used: last 08/04/24] - Next must be on or after 09/01/24 Transfer Tube Lot number: [id number] Safety Lancets: Lot: Exp: Billing: bill must be completed every 4th encounter that falls outside of 28 days from last visit PLEASE REFER TO ANTICOAGULATION TRAINING POWERPOINT FOR BILLING. Needs to use in clinic remote appointment for encounter. Deejay Laughlin, IrajD, BCPS 08/27/2024 15:33 EDT documented in this encounter Plan of Treatment Upcoming Encounters Date Type Department Care Team (Late st Contact Info) Description 12/02/2024 3:30 PM EDT Office Visit [facility] CARDIOLOG[facility] [address] [facility] [place] [address] Sujit Reyes MD [address] [facility] [address] [place], [place] [id number] 01/19/2025 1:45 PM EST Office Visit [facility] [address] [place] [address] Naveen Velasquez MD [address] [place] [address] Scheduled Orders Name Type Priority Associated Diagnoses Orde r Schedule Protime-INR Lab STAT Left ventricular apical thrombus Left ventricular apical thrombus without [place] Twice a Week for 52 Occurrences starting 08/27/2024 until 08/27/2025, 1 completed documented as of this encounter Procedures Procedure Name Priority Date/Time Associated Diagnosis Comments POCT PROTIME - INR Routine 08/27/2024 2: 16 PM EDT documented in this encounter Results * (ABNORMAL) Protime-INR (08/27/2024 3:01 PM EDT) Protime 17.2(H) 12.2 - 15.3 Seconds 08/27/2024 3:21 PM EDT [facility] INR 1.32(H) 0.89 - 1.12 08/27/2024 3:21 PM EDT [facility] Blood Venipuncture / Unknown 08/27/2024 3:01 PM EDT 08/27/2024 3:01 PM EDT Nanette Pryor MECHANICAL EXPERT LAB BLOOD ORDERABLES Fi nal Result [facility]
[address] [place] [address], * (ABNORMAL) POC Protime / INR (08/27/2024 2:16 PM EDT) Protime 16.8(H) 10.0 - 13.8 seconds 08/27/2024 2:20 PM EDT [facility] INR 1.4(H) 0.91 - 1.09 08/27/2024 2:20 PM EDT [facility] Blood 08/27/2024 2:16 PM EDT 08/27/2024 2:20 PM EDT us Nanette Pryor MECHANICAL EXPERT POINT OF CARE TEST LISETHSofiya LAWANDA Final Result Performing Organization Address City/State/[facility] Co de Phone Number [facility]
[address] [place] [address], documented in this encounter Visit Diagnoses Diagnosis Left ventricular apical thrombus- Primary Left ventricular apical thrombus without [place] documented in this encounter Care Teams Baker Pastry Relationship Specialty Start Date End Date Alisa Kunz DO [address] [place] [address] PCP - General Internal Medicine 04/26/21 documented as of this encounter
--- OUTSIDE RECORDS SUMMARY | 2024-08-27 14:55 | XMS_ITS | Encounter Summary ---
Author Organization [facility] ystem Address [address] [place] [address] Care Team Providers Care Sales Program Manager Name Role Phone Alisa Kunz Primary Care Provider +1- [phone] Encounter Details Date Type Department Care Team (Late st Contact Info) Description 08/27/2024 2:55 PM EDT Lab [facility] [address] [place] [address] Left ventricular apical thrombus; Left ventricular apical thrombus without [place] Social History Tobacco Use Types Packs/Day Years [...] Description 12/02/2024 3:30 PM EDT Office Visit [facility] [address] [place] [address] [place] [phone] Sujit Reyes MD [address] [facility] [address] [place], [place] [id number] 01/19/2025 1:45 PM EST Office Visit [facility] [address] [facility] [address] [place] [address] Naveen Velasquez MD [address] [facility] [address] [place] [address] documented as of this encounter Procedures Procedure Name Priority Date/Time Associated Diagnosis Comments PROTIME-INR STAT 08/27/2024 3:01 PM EDT Left ventricular apical thrombus Left ventricular apical thrombus without [place] documented in this encounter Results * (ABNORMAL) Protime-INR (08/27/2024 3:01 PM EDT) Protime 17.2(H) 12.2 - 15.3 Seconds 08/27/2024 3:21 PM EDT [facility] INR 1.32(H) 0.89 - 1.12 08/27/2024 3:21 PM EDT [facility] Blood Venipuncture / Unknown 08/27/2024 3:01 PM EDT 08/27/2024 3:01 PM EDT us Nanette Pryor MAJOR ASSEMBLY INSPECTOR LAB BLOOD ORDERABLES Fi nal Result [facility]
[address] [place] [address], documented in this encounter Visit Diagnoses Diagnosis Left ventricular apical thrombus Left ventricular apical thrombus without [place] documented in this encounter Care Teams Sales Program Manager Relationship Specialty Start Date End Date Alisa Kunz DO [address] [place] [address] PCP - General Internal Medicine 04/26/21 documented as of this encounter
--- OUTSIDE RECORDS SUMMARY | 2024-09-08 11:20 | XMS_ITS | Encounter Summary ---
Author Organization [facility] Address [address] [place] [address] Care Team Providers Care Railroad Conductor Name Role Phone Alisa Kunz DO Primary Care Provider [phone] Kodi Bustos DO Unavailable [phone] Sujit Arriola MD Unavailable [phone] Sujit Reyes MD Unavailable [phone] Patricia Yañez LPN Unavailable Unavailab Zee Lr DO Unavailable [phone] Reason for Referral * Imaging (Urgent) - Closed Specialty Diagnoses / Procedures Referred By Luis Armando t Referred To Contact Cardiology Diagnoses Localized swelling, mass and lump, left upper limb Procedures VAS US Venous Duplex Upper Extremity Unilateral Left Alisa Kunz DO [address] [place] [address] Phone: tel: fax: Referral ID Status Reason Start Date Expiration Date V isits Requested Visits Authorized [id number] Closed Perform Procedure 09/08/2024 03/10/2026 1 1 Encounter Details Date Type Department Care Team (Late st Contact Info) Description 09/08/2024 11:20 AM EDT Office Visit [facility] Internal Medicine [address] [place] [address] Alisa Kunz, [address] [place] [address] Shortness of breath (Primary Dx); Restless leg syndrome; Localized swelling, mass and lump, left upper limb; Sore throat; Encounter for removal of sutures Social History Tobacco Use Types Packs/Day Years [...] How often do you attend chur or rastafari services? 1 to 4 times per year [...] Date Recorded Patient Health Questionnaire-2 Score 0 09/08/2024 [facility] of Occupat ional Health - Occupational Stress [...] Date Recorded Patient Health Questionnaire-9 Score 0 09/08/2024 Housing Stability Vital Sign Answer Hong e Recorded In the last 12 months, was t here a time when you were not able to pay the mortgage or rent on time? No 05/27/2024 In the past 12 months, how m any times have you moved where you were living? 0 05/27/2024 At any time in the past 12 m [facility], were you homeless or living in a alf (including now)? No 05/27/2024 Humiliation, Afraid, Rape, and Kick questionnair e Answer Date Recorded Within the last year, have y ou been afraid of your partner or ex-partner? No 09/13/2024 Within the last year, have y ou been humiliated or emotionally abused in other ways by your partner or ex-partner? No Within the last year, have y ou been kicked, hit, slapped, or otherwise physically hurt by your partner or ex-partner? No 09/13/2024 Within the last year, have y ou been raped or forced to have any kind of sexual activity by your partner or ex-partner? No 09/13/2024 Hunger Vital Sign Answer Date Recorded Within the past 12 months, y ou worried that your food would run out before you got the money to buy more. Never true 09/18/19 25 Within the past 12 months, t he food you bought just didn't last and you didn't have money to get more. Never true 09/17/2024 PRAPARE - Transportation Answer Date Re corded In the past 12 months, has l ack of transportation kept you from medical appointments or from getting medications? No 09/07 In the past 12 months, has l ack of transportation kept you from meetings, work, or from getting things needed for daily living? No 09/17/2024 Housing Stability Vital Sign Answer Hong e Recorded In the last 12 months, was t here a time when you were not able to pay the mortgage or rent on time? No 09/17/2024 In the past 12 months, how m any times have you moved where you were living? 0 09/17/2024 At any time in the past 12 m [facility], were you homeless or living in a alf (including now)? No 09/17/2024 CAGE ASSESSMENT Answer Date Recorded Cage unable [...] drink first t anselmo in the morning (EYE-SPECK DYER) to steady your nerves or to get rid of a hangover? 0 08/14/2024 CAGE Questionnaire Score 0 025 Utilities Answer Date Recorded In the past 12 months has th e electric, gas, oil, or water company threatened to shut off services in your home? No 09/17/2024 PHQ-2A Answer Date Recorded Depression Risk 0 09/18/2022 Comments No Sex and Gender Information Value Date Recorded Sex Assigned at Female 11/01/2020 9:33 PM EDT Legal Sex Female 8:14 PM EDT Gender Identity Female 11/01/2020 9:33 PM EDT Sexual Orientation Straight 11/01/2020 9: 33 PM EDT documented as of this encounter Last Filed Vital Signs Vital Sign Reading Time Taken Comments Blood Pressure 148/75 09/08/2024 11:19 AM EDT Pulse 60 09/08/2024 11:19 AM EDT Temperature 36.7 C (98.1 F) 09/08/2024 11:19 AM EDT Respiratory Rate 18 09/08/2024 11:19 AM EDT Oxygen Saturation - - Inhaled Oxygen Concentration - - Weight - - Height 162.6 cm (5' 4.02 ) 09/08/2024 11:19 AM E DT Body Mass Index - - documented in this encounter Functional Status * Over the past 2 weeks, how often have you been bothered by any of the following problems? Question Answer Date of Assessment Author Little interest or pleasure in doing things Not at all 09/08/2024 11:19 AM EDT Shashank Burrows Feeling down, depressed, or hopeless Not at all 09/08/2024 11:19 AM EDT Shashank Burrows Patient Health Questionnaire -2 Score 0 09/08/2024 11:19 AM EDT Shashank Burrows * Question Answer Date of Assessment Author Trouble falling or staying asleep, or sleeping too much Not at all 09/08/2024 11:19 AM EDT Shashank Burrows Feeling tired or having vasquez le energy Not at all 09/08/2024 11:19 AM EDT Shashank Burrows Poor appetite or overeating Not at all 09/08/2024 11 :19 AM EDT Shashank Burrows Feeling bad about yourself - or that you are a failure or have let yourself or your family down Not at all 09/08/2024 11:19 AM EDT Shashank Frias Trouble concentrating on thi ngs, such as reading the newspaper or watching television Not at all 09/08/2024 11:19 AM EDT Shashank Burrows Moving or speaking so slowly that other people could have noticed? Or the opposite - being so fidgety or restless that you have been moving around a lot more than usual. Not at all 09/08/2024 11:19 AM EDT Shashank Burrows Thoughts that you would be b kyleigh off or hurting yourself in some way Not at all 09/08/2024 11:19 AM EDT Shashank Burrows Patient Health Questionnaire -9 Score 0 09/08/2024 11:19 AM EDT Shashank Burrows * Calculated C-SSRS Risk Score (Lifetime/Recent) Answer Date of Assessment Author No Risk Indicated 09/15/2024 8:00 AM EDT Sunny Ramirez, EVITA * If you checked off any problems on this questionnaire so far, Question Answer Date of Assessment Author How difficult have these problems made it for you to do your work, take care of things at home, or get along with other people? Not difficult at all 09/08/2024 11:19 AM EDT Joni Burrows * Question Answer Date of Assessment Author 1. Wish to be (Past 1 Month) No 025 8:00 AM EDT Sunny Ramirez RN 2. Non-Specific Active Suici dillon Thoughts (Past 1 Month) No 09/15/2024 8:00 AM EDT Flora Ramirez RN 6. Suicidal Behavior (Lifetime) No 8:00 AM EDT Sunny Ramirez RN documented as of this encounter Miscellaneous Notes * Progress Notes - Zee Lazar DO - 09/08/2024 11:20 AM EDT Transitional Care Management Progress Note: Nz[employer] Visit Patient: Michelle Felipe : 1950 PCP: Alisa Kunz DO Subjective Michelle Felipe is a 74 y.o. female presenting today for follow-up after being discharged from the hospital 15 days ago. The main problem requiring admission was acute hypoxic respiratory failure. The discharge summary and/or Transitional Care Management documentation was reviewed. Medication reconciliation was performed as indicated via the Bryon as Reviewed timestamp. Michelle Felipe was contacted by Transitional Care Management services two days after her discharge. This encounter and supporting documentation was reviewed. The complexity of medical decision making for this patient's transitional care is moderate. Review of Systems: Review of Systems Constitutional: Positive for activity change and fatigue. Negative for chills and fever. HENT: Positive for mouth sores, rhinorrhea, sore throat and voice change. Negative for congestion, sinus pressure and sinus pain. Respiratory: Positive for cough and shortness of breath. Negative for chest tightness. Cardiovascular: Negative for chest pain and palpitations. Gastrointestinal: Negative for abdominal pain, constipation, diarrhea, nausea and vomiting. Musculoskeletal: Positive for arthralgias and joint swelling. + New left hand swelling with mild dusky erythema and decreased wheat grower strength s/t swelling, +mild right ankle edema without erythema (baseline). Skin: Positive for color change. New bumps noted to bilateral elbows, right lateral 5th digit. Hematological: Bruises/bleeds easily. On Warfarin Past Medical History: Past Medical History[1] Past Surgical History: Surgical History[2] Family History: Family History[3] Objective Physical Exam: General: A&O x4. Patient conversationally dyspneic, chronically ill-appearing. In wheelchair. No acute distress. HENT: Head normocephalic, atraumatic. EOMI. Conjunctiva non-icteric. Oral mucosa pink and moist. Nopalpable cervical lymphadenopathy. Patient unable to open jaw for adequate visualization of posterior oropharynx s/t jaw pain but no erythema in small area able to be visualized. Respiratory: Posterior lung browning CTAB superiorly. Decreased breath sounds inferiorly and over CVAbilaterally. Shallow respirations. Symmetric rise and fall of chest. On home 2L supplemental O2. CV: Regular rate and rhythm. No murmurs, rubs, or gallops. Distal extremities well-perfused. MSK: Mild edema of right ankle circumferentially without erythema or fluctuance (patient states this is about baseline). Left hand is edematous (dorsal>palmar) including all 5 digits with mild dusky erythema. 2+ radial pulses bilaterally. No open wounds, bites, or rashes noted over BUE. Decreased wheat grower strength in left hand s/t swelling. Otherwise normal ROM throughout. Skin: Few non-tender hardened bumps <1 cm over bilateral elbows and over right lateral 5th digitwithout fluctuance, erythema, drainage, open wounds; do not appear to be bug bites. 2 sutures removed from skin overlying right lateral chest wall from prior chest tube, incision is C, D, I without drainage or evidence of cellulitis. Assessment/Plan Assessment & Plan Shortness of breath Orders: XR Chest 2 Views; Future CBC and Differential; Future Comprehensive metabolic panel; Future Restless leg syndrome Orders: Iron & Total Iron Binding Capacity, Plasma (Includes Transferrin); Future Ferritin; Future -- Patient started on PO iron supplement ~1 week ago. Localized swelling, mass and lump, left upper limb Orders: VAS US Venous Duplex Upper Extremity Unilateral Left; Future -- INR subtherapeutic at 1.32 (08/27/24). Sore throat Orders: SARS-CoV-2, Flu A, Flu B, and RSV; Future Encounter for removal of sutures Additional Chronic/Hospitalization Diagnoses Reviewed #) Acute on Chronic Hypoxic Respiratory Failure s/t Recurring Bilateral Pleural Effusions of Unclear/Multifactorial Etiology - Patient recently hospitalized 08/14- and treated for right pleural effusion requiring chest tube placement (08/17-) and pleurodesis (08/19). Pulmonology and cardiology involved in patient's care during admission. Multifactorial etiology - SLE vs HFpEF. - Patient maintaining SpO2 in 90s while at rest with exertional desaturation to 79-80s on home 2L since discharge but feels that her breathing has been worsening since discharge on 08/24. #) Heart Failure with Preserved Ejection Fraction #) Grade II Diastolic Dysfunction #) Mild Pulmonary Hypertension - Echo from 07/12/2024 reviewed showing LVEF 55-60%, no wall motion abnormalities, RV not well visualized, mild/moderate AR, mild MS, severe mitral annular calcification, mitral valve pressure 4 mmHg at 99 bpm, no pericardial effusion; LV thrombus resolved otherwise no significant interval changes from prior (05/16/24). - Patient underwent RHC during last hospitalization (08/17/24) showing mild pHTN. - Follows with [facility]. - Continue home Lasix 40 mg and spironolactone 12.5 mg daily. #) Coronary Artery Disease s/p CABG (2019) and Balloon Angioplasty (2020) #) Hypertension #) Atrial Fibrillation #) H/O Complete Heart Block s/p PPM #) H/O LV Apical Thrombus on Warfarin - LV apical thrombus incidentally found on echo 01/2024 while patient was on Eliquis. Patient started on Warfarin; no LV thrombus noted on most recent echo (07/12/2024). - Continue metoprolol succinate 25 mg and ASA 81 mg daily. #) Systemic Lupus Erythematosus - Follows with rheumatology; continue Plaquenil and mycophenolate. #) Type I Diabetes Mellitus #) Diabetic Neuropathy - Patient following with endocrinology; recently started supplement that she believes is lowering her sugars. She notes occasional lows (49 bpm) that improve with hard candies/orange juice. Average glucose at home 200-300. - Home regimen at this time: Toujeo 6U each morning with Humalog 3U with breakfast and lunch / 2U at dinner + sliding scale. - Continue gabapentin. #) Chronic Hyponatremia - Chronic, stable; likely pseudohyponatremia as sodium corrected for hyperglycemia is mildly decreased 132, 133 (Jennifer Keith). Will continue to monitor. #) Hyperlipidemia - Continue pitavastatin and ezetimibe. Lipids last checked 06/2023 were unremarkable. #) Hypothyroidism - Continue levothyroxine 125 mcg daily. Most recent TSH 0.77 from 06/2023. #) Chronic Normocytic Anemia - Chronic, stable; will continue to monitor. No evidence of bleeding. #) H/O CVA (2022) - On secondary prevention. #) Obstructive Sleep Apnea - Follows with sleep medicine; has CPAP at home that she has not been using for awhile. Uses homebaseline 2L O2 at night. #) Decreased Mobility and Physical Deconditioning - Continues with PT/OT. #) H/O T12 Burst Fracture - Seen on imaging 04/2024; orthopedic surgery following and recommended no surgical intervention. Patient has not been wearing brace d/t discomfort/limited mobility. #) Anxiety and Depression #) Fibromyalgia - Continue Cymbalta and Buspar. #) Drug-Induced Xerostomia #) Chronic Aphthous Ulcers - Continue conservative management. #) Gastroesophageal Reflux Disease - Chronic, stable; continue conservative management. #) Osteoarthritis #) Osteopenia - Chronic, stable. - Repeat DEXA in 01/2025. #) Seasonal Allergies - Continue Zyrtec. #) Voice Hoarseness - Has established with ENT; she plans on obtaining a follow-up appointment eventually. Also established with voice therapy, however, unfortunately not stimulable. #) GUSM - H/O vaginal atrophy, urinary urgency, frequency, incontinence. Follow-up: Scheduled with Dr. Kunz, PCP, on 10/18/2024 Zee Lazar DO PGY-1, [facility] Internal Medicine [1] Past Medical History: Diagnosis Date 2019-nCoV acute respiratory disease 05/07/2022 Alcohol use Allergic 1973 Anemia Anxiety Arthritis Asthma Cellulitis 02/13/2024 Cellulitis of right leg 02/12/2024 CHF (congestive heart failure) ([facility]/HCC) Chronic respiratory failure 2020 Clotting disorder ([facility]/HCC) Congenital malformation COPD (chronic obstructive pulmonary disease) ([facility]) 2019 Coronary artery disease CTS (carpal tunnel syndrome) Dental disease Depression Diabetes mellitus type I ([facility]/HCC) Disease of thyroid gland Eczema Fracture of left proximal fibula 04/09/2021 - Left proximal fibula fracture on 02/2021 after a mechanical fall. - Established with orthopedic surgery, no surgical intervention, WBAT. Heart disease Hepatitis B 1960 HL (hearing loss) Hypertension Hyperthyroidism 1960 Hypothyroidism 1960 Infectious viral hepatitis Myocardial infarction ([facility]/HCC) Peripheral neuropathy Pneumonia 06/01 Post-menopausal bleeding 05/08/2021 - Isolated episode of vaginal spotting in early 2021, no recurrence. Was evaluated with OBGYN in 10/2021, no intervention at this time, if recurrence of bleeding will likely require endometrial biopsy. Posterior circulation stroke ([facility]/HCC) 12/26/2022 Red eye 05/13/2022 - Concerning for bacterial or viral conjunctivitis vs. Scleritis. - Needs [facility] eye exam. - Was ableto get patient in with [facility] ophthalmology right after our clinic [...] Skin cancer 2023 Sleep apnea, obstructive Stroke ([facility]/HCC) Systemic lupus erythematosus, unspecified ([facility]/HCC) Lupus Varicella Visual impairment [2] Past Surgical History: Procedure Laterality Date ADENOIDECTOMY ADRENAL GLAND SURGERY ANKLE FRACTURE SURGERY BREAST BIOPSY Right 2013 u/s core benign CARDIAC PACEMAKER PLACEMENT N/A Pacemaker Placement from [employer] CARPAL TUNNEL RELEASE N/A Neuroplasty Decompression Median Nerve At Carpal Tunnel from [employer] CERVICAL BIOPSY W/ LOOP ELECTRODE EXCISION 2011 SECTION, CLASSIC 1976, 1979 SECTION, LOW TRANSVERSE N/A Section from [employer] COLONOSCOPY N/A Complete Colonoscopy from [employer] CORONARY ARTERY BYPASS GRAFT N/A CABG from [employer] EYE SURGERY N/A Eye Surgery from [employer] FRACTURE SURGERY SPINE SURGERY THORACENTESIS TOE SURGERY Left 02/07/2024 hematoma removal of upper skin on L big toe TONSILLECTOMY N/A Tonsillectomy from [employer] [3] Family History Problem Relation Name Age of Onset Conversions - Other Mother cindi stamper alfredito kelin Goiter (Diffuse Nontoxic) Heart disease Mother cindi stamper alfredito kelin Hypertension Mother cindi stamper alfredito kelin Stroke Mother cindi stamper alfredito kelin COPD Mother cindi stamper alfredito kelin Alpha-1 antitrypsin deficiency Mother cindi stamper alfredito kelin Arthritis Father Doron E Morris Hypercholesterolemia Father Doron E Morris Obesity Father Doron E Morris COPD Father Doron E Morris Alcohol abuse Father Doron E Alfredito Diabetes Sibling Cancer Other Doron E Alfredito Conversions - Other Other Goiter (Diffuse Nontoxic) Heart disease Other Cindi Marry Stamper Morris Kelin Cosigned by Alisa Kunz DO at 09/18/2024 9:58 PM EDT Associated attestation - Alisa Kunz DO - 09/18/2024 9:58 PM EDT I saw and evaluated the patient with the resident/fellow. I discussed the case with the resident/fellow and agree with the findings and plan as documented. documented in this encounter Plan of Treatment Upcoming Encounters Date Type Department Care Team (Late st Contact Info) Description 10/07/2024 12:50 PM EDT Office Visit [facility] Otolaryngology [address] [place] [address] Chris Pepe MD [address] [place] [address] 10/07/2024 4:00 PM EDT Appointment Cardiac Imaging [address] [place] [address] 10/14/2024 11:00 AM EDT Office Visit [facility] [address] [place] [address] Cristian Zimmer MD [address] [place] [address] 10/18/2024 7:40 AM EDT Office Visit [facility] Internal Medicine [address] [place] [phone] Alisa Kunz, DO [address] [place] [address] 10/25/2024 10:00 AM EDT Office Visit [facility] Nephrology, Bone & Mineral Metabolism [address], [address] [place] [address] Bryon Brandon MD [address] [place] [address] 10/27/2024 1:40 PM EDT Office Visit [facility] Endocrinology [address] [place] [phone] Anne-Marie Kolb L, FISH BONING MACHINE FEEDER [address] [place] [phone] 02/02/2025 8:40 AM EST Office Visit [facility] Internal Medicine [address] [place] [address] Alisa Kunz, DO [address] [place] [address] documented as of this encounter Procedures Procedure Name Priority Date/Time Associated Diagnosis Comments SARS-COV-2, FLU A, FLU B, AND RSV Routine 09/08/2024 1:09 PM EDT Sore throat documented in this encounter Results * VAS US Venous Duplex Upper Extremity Unilateral Left (09/08/2024 2:33 PM EDT) Anatomical Region Laterality Modality Upper Extremities, Vascular Left Ultr asound Impressions 09/09/2024 8:52 AM EDT Left: Normal study; no evidence of acute DVT is identified. COMMUNICATION: Per this written report. Preliminary report signed by Abi Bustos RVT on 09/08/2024 2:35 PM By electronically signing this report, I, the attending physician, attest that I have personally reviewed the images/data for the above examination(s) and I agree with the final edited report. Drafted by Abi Bustos RVT on 09/08/2024 2:34 PM Final report signed by Sonam Welsh MD on 09/09/2024 8:52 AM Narrative 09/09/2024 8:52 AM EDT CLINICAL INDICATION: Acute limb swelling TECHNIQUE: Non-invasive, real time duplex exam of the upper extremity venous circulation with Doppler ultrasonic waveform and spectral analysis was performed. COMPARISON: None. FINDINGS: Right: For comparison. Venous duplex demonstrates compressible subclavian vein. The venous spectral analysis demonstrates a spontaneous, phasic and augmentable flow signal. Left: Venous duplex demonstrates compressible IJV, subclavian, axillary, brachial, basilic and cephalic veins. The venous spectral analysis demonstrates a spontaneous, phasic and augmentable flow signal. Procedure Note Sonam Welsh MD - 09/09/2024 CLINICAL INDICATION: Acute limb swelling TECHNIQUE: Non-invasive, real time duplex exam of the upper extremity venouscirculation with Doppler ultrasonic waveform and spectral analysis wasperformed. COMPARISON: None. FINDINGS: Right: For comparison. Venous duplex demonstrates compressible subclavianvein. The venous spectral analysis demonstrates a spontaneous, phasic andaugmentable flow signal. Left: Venous duplex demonstrates compressible IJV, subclavian, axillary,brachial, basilic and cephalic veins. The venous spectral analysisdemonstrates a spontaneous, phasic and augmentable flow signal. IMPRESSION: Left: Normal study; no evidence of acute DVT is identified. COMMUNICATION: Per this written report. Preliminary report signed by Abi Bustos RVT on 09/08/2024 2:35 PM By electronically signing this report, I, the attending physician, attestthat I have personally reviewed the images/data for the aboveexamination(s) and I agree with the final edited report. Drafted by Abi Bustos RVT on 09/08/2024 2:34 PM Final report signed by Sonam Welsh MD on 09/09/2024 8:52 AM us Alisa Kunz DO CV VASCULAR PROCEDURES Final R esult * XR Chest 2 Views (09/08/2024 1:50 PM EDT) Anatomical Region Laterality Modality Chest Digital Radiogra phy Impressions 09/08/2024 4:46 PM EDT Interval increase in right pleural effusion, now medium sized. CRITICAL RESULT: No. COMMUNICATION: Per this written report. By electronically signing this report, I, the attending physician, attest that I have personally reviewed the images/data for the above examination(s) and agree with the final edited report. Drafted by Rose Browning on 09/08/2024 3:47 PM Final report signed by Amanda Chatman MD on 09/08/2024 4:46 PM Narrative 09/08/2024 4:46 PM EDT CLINICAL INDICATION: Shortness of breath TECHNIQUE: XR CHEST 2 VIEWS COMPARISON: Chest radiograph August 23, 2024 FINDINGS: Support hardware in stable position. Interval increase in right-sided pleural effusion, now medium-sized, with stable small left pleural effusion. Bibasilar atelectasis, also greater on the right. No new consolidation. No pneumothorax. Cardiac silhouette and mediastinal contours are stable. Procedure Note Amanda Chatman MD - 09/08/2024 CLINICAL INDICATION: Shortness of breath TECHNIQUE: XR CHEST 2 VIEWS COMPARISON: Chest radiograph August 23, 2024 FINDINGS: Support hardware in stable position. Interval increase in right-sidedpleural effusion, now medium-sized, with stable small left pleuraleffusion. Bibasilar atelectasis, also greater on the right. No newconsolidation. No pneumothorax. Cardiac silhouette and mediastinalcontours are stable. IMPRESSION: Interval increase in right pleural effusion, now medium sized. CRITICAL RESULT: No. COMMUNICATION: Per this written report. By electronically signing this report, I, the attending physician, [email or web address] I have personally reviewed the images/data for the aboveexamination(s) and agree with the final edited report. Drafted by Rose Browning on 09/08/2024 3:47 PM Final report signed by Amanda Chatman MD on 09/08/2024 4:46 PM us Alisa Kunz DO IMG XR PROCEDURES Final Result * (ABNORMAL) Comprehensive metabolic panel (09/08/2024 1:33 PM EDT) Glucose, Plasma 247(H) 74 - 99 mg/dL 09/08/2024 4:06 PM EDT [facility] BUN, Plasma 24(H) 8 - 23 mg/dL 09/08/2024 4:06 PM EDT [facility] Creatinine, Plasma 0.92 0.60 - 1.10 mg/dL 09/08/2024 4:06 PM EDT [facility] BUN/Creatinine Ratio 26 09/08/2024 4:06 PM EDT [facility] Sodium, Plasma 131(L) 136 - 145 mmol/L 09/08/2024 4:06 PM EDT [facility] Potassium, Plasma 4.0 3.6 - 4.9 mmol/L 09/08/2024 4:06 PM EDT [facility] Chloride, Plasma 90(L) 97 - 107 mmol/L 09/08/2024 4:06 PM EDT [facility] CO2, Plasma 27 22 - 29 mmol/L 09/08/2024 4:06 PM EDT [facility] Anion Gap 14 6 - 16 mmol/L 09/08/2024 4:06 PM EDT [facility] Total Calcium, Plasma 8.9 8.9 - 10.2 mg/dL 09/08/2024 4:06 PM EDT [facility] Total Protein 7.4 6.3 - 7.9 g/dL 09/08/2024 4:06 PM EDT [facility] Albumin, Plasma 3.4(L) 3.5 - 5.2 g/dL 09/08/2024 4:06 PM EDT [facility] AST, Plasma 34 10 - 35 U/L 09/08/2024 4:06 PM EDT [facility] ALT, Plasma 25 10 - 35 U/L 09/08/2024 4:06 PM EDT [facility] Alkaline Phosphatase, Plasma 116 46 - 142 U/L 09/08/2024 4:06 PM EDT [facility] Total Bilirubin, Plasma 0.4 0.2 - 1.1 mg/dL 09/08/2024 4:06 PM EDT [facility] eGFRcr 65.9 mL/min/1.7 3m*2 09/08/2024 4:06 PM EDT [facility] Comment:Reported eGFRcr in m L/min/1.73m2 is based the CKD-EPI 2020 equation that does not use a race coefficient. Blood Venous blood specimen / Unknown Venipuncture / Unknown 09/08/2024 1:33 PM EDT 09/08/2024 1:33 PM EDT us Alisa Kunz DO LAB BLOOD ORDERABLES Final Res ult [facility] [address] [place] [address] * (ABNORMAL) CBC and Differential (09/08/2024 1:33 PM EDT) WBC Count 7.66 3.70 - 10.30 10*3/uL LAB HEMATOLOGY METHOD 09/08/2024 4:11 PM EDT [facility] RBC Count 3.47(L) 3.90 - 5.20 10*6/uL LAB HEMATOLOGY METHOD 09/08/2024 4:11 PM EDT [facility] HGB 10.2(L) 11.2 - 15.7 g/dL LAB HEMATOLOGY METHOD 09/08/2024 4:11 PM EDT [facility] HCT 32.8(L) 34.0 - 45.0 % LAB HEMATOLOGY METHOD 09/08/2024 4:11 PM EDT [facility] Platelet Count 534(H) 155 - 369 10*3/uL LAB HEMATOLOGY METHOD 09/08/2024 4:11 PM EDT [facility] MCV 95 79 - 98 fL LAB HEMATOLOGY METHOD 09/08/2024 4:11 PM EDT [facility] MCH 29.4 26.0 - 32.0 pg LAB HEMATOLOGY METHOD 09/08/2024 4:11 PM EDT [facility] MCHC 31.1 30.7 - 35.5 g/dL LAB HEMATOLOGY METHOD 09/08/2024 4:11 PM EDT [facility] RDW 15.4(H) 11.5 - 14.5 % LAB HEMATOLOGY METHOD 09/08/2024 4:11 PM EDT [facility] MPV 9.3 8.8 - 12.5 fL LAB HEMATOLOGY METHOD 09/08/2024 4:11 PM EDT [facility] nRBC 0.0 <=0.0 per 100 WBCs LAB HEMATOLOGY METHOD 09/08/2024 4:11 PM EDT [facility] Differential Type Automated LAB HEMATOLOGY METHOD 09/08/2024 4:11 PM EDT [facility] Neutrophils % 80 % LAB HEMATOLOGY METHOD 09/08/2024 4:11 PM EDT [facility] Lymphocytes % 8 % LAB HEMATOLOGY METHOD 09/08/2024 4:11 PM EDT [facility] Monocytes % 9 % LAB HEMATOLOGY METHOD 09/08/2024 4:11 PM EDT [facility] Eosinophils % 1 % LAB HEMATOLOGY METHOD 09/08/2024 4:11 PM EDT [facility] Basophils % 1 % LAB HEMATOLOGY METHOD 09/08/2024 4:11 PM EDT [facility] Immature Granulocytes % 1 % LAB HEMATOLOGY METHOD 09/08/2024 4:11 PM EDT [facility] Neutrophils Absolute 6.18(H) 1.60 - 6.10 10*3/uL LAB HEMATOLOGY METHOD 09/08/2024 4:11 PM EDT [facility] Lymphocytes Absolute 0.64(L) 1.20 - 3.90 10*3/uL LAB HEMATOLOGY METHOD 09/08/2024 4:11 PM EDT [facility] Monocytes Absolute 0.65 0.30 - 0.90 10*3/uL LAB HEMATOLOGY METHOD 09/08/2024 4:11 PM EDT [facility] Eosinophils Absolute 0.06 0.00 - 0.50 10*3/uL LAB HEMATOLOGY METHOD 09/08/2024 4:11 PM EDT [facility] Basophils Absolute 0.08 0.00 - 0.10 10*3/uL LAB HEMATOLOGY METHOD 09/08/2024 4:11 PM EDT [facility] Immature Granulocytes Absolute 0.05 0.00 - 0.06 10*3/uL LAB HEMATOLOGY METHOD 09/08/2024 4:11 PM EDT [facility] Blood Venous blood specimen / Unknown Venipuncture / Unknown 09/08/2024 1:33 PM EDT 09/08/2024 1:33 PM EDT Narrative [facility] - 09/08/2024 4:11 PM EDT Therapeutic decision making should be based on absolute values, rather than percentages. us Alisa L Ze DO LAB BLOOD ORDERABLES Final Res ult [facility] [address] [place] [address] * Ferritin (09/08/2024 1:33 PM EDT) Ferritin, Serum 102 13 - 150 ng/mL 09/08/2024 4:37 PM EDT [facility] Blood Venous blood specimen / Unknown Venipuncture / Unknown 09/08/2024 1:33 PM EDT 09/08/2024 1:33 PM EDT us Alisa L Ze DO LAB BLOOD ORDERABLES Final Res ult [facility] [address] [place] [address] * (ABNORMAL) Iron & Total Iron Binding Capacity, Plasma (Includes Transferrin) (09/08/2024 1:33 PM EDT) Iron, Plasma 26(L) 30 - 160 ug/dL 09/08/2024 4:06 PM EDT [facility] Transferrin, Plasma 262 200 - 360 mg/dL 09/08/2024 4:06 PM EDT [facility] Total Iron Binding Capacity, Plasma 328 240 - 450 ug/mL 09/08/2024 4:06 PM EDT [facility] Transferrin Saturation 8(L) 14 - 50 % 09/08/2024 4:06 PM EDT [facility] Blood Venous blood specimen / Unknown Venipuncture / Unknown 09/08/2024 1:33 PM EDT 09/08/2024 1:33 PM EDT us Alisa Kunz DO LAB BLOOD ORDERABLES Final Res ult [facility] [address] [place] [address] * SARS-CoV-2, Flu A, Flu B, and RSV (09/08/2024 1:09 PM EDT) SARS CoV-2/COVID-19 RNA PCR Result Not Detected Not Detected 09/09/2024 10:48 AM EDT [facility] Influenza A Virus PCR Result Not Detected Not Detected 09/09/2024 10:48 AM EDT [facility] Influenza B Virus PCR Result Not Detected Not Detected 09/09/2024 10:48 AM EDT [facility] Respiratory Syncytial Virus (RSV) PCR Result Not Detected Not Detected 09/09/2024 10:48 AM EDT [facility] Swab Nasopharyngeal structure / Unknown Non-blood Collection / Unknown 09/08/2024 1:09 PM EDT 09/08/2024 4:50 PM EDT Narrative [facility] - 09/09/2024 10:48 AM EDT This test is FDA approved for use with nasopharyngeal specimens in Viral Transport Media (VTM). This test is used for clinical purposes. It should not be regarded as investigational or for research. This laboratory is certified under the Clinical Laboratory improvement Amendments of 1988 (CLIA-88 as qualified to perform high complexity clinical laboratory testing. This test was performed on the [facility] Respiratory Viral Panel, a PCR-based method. Negative results should be considered presumptive and do not preclude current or future infection obtained through community transmission or other exposures. Negative results must be considered in the context of an individual's recent exposures, history, presence of clinical signs and symptoms consistent with COVID-19, Influenza A or B, and RSV. Alisa Kunz DO LAB MICROBIOLOGY - GENERAL ORD ERABLES Final Result [facility] [address] [place] [address] documented in this encounter Visit Diagnoses Diagnosis Shortness of breath- Primary Restless leg syndrome Restless legs syndrome (RLS) Localized swelling, mass and lump, left upper limb Sore throat Acute pharyngitis Encounter for removal of sutures Localized swelling, mass and lump, left upper limb Shortness of breath documented in this encounter Additional Health Concerns Infection Onset Date Last Indicated Resolved Time COVID-19 Rule-Out 09/08/2024 09/08/2024 09/09/2024 10:48 AM EDT Assessment Noted Time PHQ-9 Depression Total Score: 0 09/09/19 25 11:19 AM EDT A fall risk assessment has been complete d for the patient 09/08/2024 11:19 AM EDT A Body Mass Index follow-up plan has been documented for the patient 09/08/2024 1:18 PM EDT documented as of this encounter Care Teams [employer] Relationship Specialty Start Date End Date Alisa Kunz DO [address] [place] [id number] PCP - General Internal Medicine 03/13/21 Kodi Bustos DO [address] [phone] Surgeon Cardiothoracic Surgery 11/06/22 Sujit Arriola MD [address] [place] [id number] Consulting Physician Pulmonary Disease 11/06/22 Sujit Reyes MD [address] [facility] [address] [place] [address] Referring Physician 12/04/22 Patricia Yañez LPN [facility] TCM Nurse 08/25/24 Zee Lazar DO [address] [place], [place] [id number] Resident 09/08/24 documented as of this encounter
--- OUTSIDE RECORDS SUMMARY | 2024-09-08 13:36 | XMS_ITS | Encounter Summary ---
Author Organization [facility] Address [address] [place] [address] Care Team Providers Care Volleyball Assistant Coach Name Role Phone Alisa Kunz DO Primary Care Provider [phone] Kodi Bustos DO Unavailable [phone] Sujit Arriola MD Unavailable [phone] Sujit Reyes MD Unavailable [phone] Patricia Yañez LPN Unavailable Unavailab Zee Lr DO Unavailable [phone] Encounter Details Date Type Department Care Team (Latest Contact Info) Description 09/08/2024 1:36 PM EDT - 09/08/2024 1:54 PM EDT [facility] [address], 1st [place] [address] Shortness of breath Discharge Disposition: Home or [...] week 08/30/2022 How often do you attend [facility] or jewish services? 1 to 4 times [...] Recorded Patient Health Questionnaire-2 Score 0 09/08/2024 [facility] of Occupat ional Health - Occupational Stress [...] any time in the past 12 m [facility], were you homeless or living in a care home (including now)? No 05/27/2024 Humiliation, Afraid, [...] money to buy more. Never true 09/14/19 25 Within the past 12 months, t [...] any time in the past 12 m [facility], were you homeless or living in a care home (including now)? No 09/13/2024 CAGE ASSESSMENT Answer [...] drink first t anselmo in the morning (EYE-EDITOR BOOK) to steady your nerves or to get [...] usual. Not at all 09/08/2024 11:19 AM JANET Shashank Burrows Thoughts that you would be b kyleigh off or hurting yourself in some way Not at all 09/08/2024 11:19 AM Shashank Barreto Patient Health Questionnaire -9 Score 0 09/08/2024 11:19 AM JANET Shashank Burrows * Calculated C-SSRS Risk Score [...] Not difficult at all 09/08/2024 11:19 AM Joni Barreto y * Question Answer Date of Assessment Author 1. Wish to be (Past 1 Month) No 025 8:00 AM Sunny Orr RN 2. Non-Specific Active Suici dillon Thoughts (Past 1 Month) No 09/15/2024 8:00 AM Flora Orr RN 6. Suicidal Behavior (Lifetime) No 8:00 AM Sunny Orr RN documented as of this encounter Medications [...] lupus erythematosus (SLE) in adult (CMS/HCC) Take 2 tablets by mouth 2 times a day. 360 tablet 1 08/27/2024 nitroglycerin (Nitrostat) 0.[address] 1 tablet under the tongue every 5 minutes as needed for chest pain. oxygen (O2) gas Inhale 2 L nightly. via nasal canula Pitavastatin Calcium (Livalo) 4 MG tabletIndications: Type 1 diabetes mellitus with other specified complication ([facility]/HCC),Dyslipid emia Take 1 tablet by mouth daily. 90 tablet 09/06/2024 Probiotic Product (acidophilus probiotic blend) capsule Take [...] tabletIndications: Systemic lupus erythematosus (SLE) in adult ([facility]) Take 1 tablet by mouth daily. 90 tablet 1 07/21/2024 Probiotic Product (acidophilus probiotic blend) capsule Take 1 capsule by mouth every morning. spironolactone (Aldactone) 25 MG tablet Take 0.25 tablets by mouth daily. 30 tablet 07/20/2024 5 documented as of this encounter Plan of Treatment Upcoming Encounters Date Type Department Care Team (Late st Contact Info) Description 10/07/2024 12:50 PM EDT Office Visit [facility] Otol[facility]ology [address], 3rd [place] [address] Chris Pepe MD [address] [place] [address] 10/07/2024 4:00 PM EDT Appointment Cardiac Imaging [address] [place] [phone] 10/14/2024 11:00 AM EDT [facility] Medicine [facility] [address], 2nd [place] [address] Cristian Zimmer MD [address] [place] [address] 10/18/2024 7:40 AM EDT Office Visit [facility] [place] [facility] Internal Medicine [address], 3rd [place] [address] Alisa Kunz, DO [address] [place] [address] 10/25/2024 10:00 AM EDT Office Visit [facility] Nephrology, Bone & Mineral Metabolism [address] [facility], [address] [place] [address] Bryon Brandon MD [address] [place] [address] 10/27/2024 1:40 PM EDT Office Visit [facility] Endocrinology [address] [place] [address] Anne-Marie Kolb L, COMIC BOOK WRITER [address] [facility] [address] [place] [address] 02/02/2025 8:40 AM EST Office Visit [facility] [place] [facility] Internal Medicine [address], 3rd [place] [address] Alisa Kunz, DO [address] [place] [address] documented as of this encounter [...] documented as of this encounter Care Teams Volleyball Assistant Coach Relationship Specialty Start Date End Date Alisa Kunz DO [address] [place] [phone] PCP - General Internal Medicine 03/13/21 Kodi Bustos, DO [address] [place] [phone] Surgeon Cardiothoracic Surgery 11/06/22 Sujit Arriola MD [address] [place] [address] Consulting Physician Pulmonary Disease 11/06/22 Sujit Reyes MD [address] [place] [address] Referring Physician 12/04/22 Patricia Yañez LPN [facility] TCM Nurse 08/25/24 Zee Lazar DO [address] [place], [place] [id number] Resident 09/08/24 documented as of this encounter
--- OUTSIDE RECORDS SUMMARY | 2024-09-08 13:55 | XMS_ITS | Encounter Summary ---
Author Organization [facility] Address [address] [place] [address] Care Team Providers Care Stain Dipper Name Role Phone Alisa Kunz DO Primary Care Provider Kodi Bustos DO Unavailable [phone] Sujit Arriola MD Unavailable [phone] Sujit Reyes MD Unavailable [phone] Patricia Yañez LPN Unavailable Unavailab Zee Lr DO Unavailable [phone] Reason for Referral * Imaging (Urgent) - Closed Specialty Diagnoses / Procedures Referred By Luis Armando mckeon Referred To Contact Cardiology Diagnoses Localized swelling, mass and lump, left upper limb Procedures VAS US Venous Duplex Upper Extremity Unilateral Left Alisa Kunz DO [address] [place] [address] Phone: tel: fax: Referral ID Status Reason Start Date Expiration Date V isits Requested Visits Authorized [id number] Closed Perform Procedure 09/08/2024 03/10/2026 1 1 Reason for Visit * Imaging (Urgent) - Closed Specialty Diagnoses / Procedures Referred By Contac t Referred To Contact Cardiology Diagnoses Localized swelling, mass and lump, left upper limb Procedures VAS US Venous Duplex Upper Extremity Unilateral Left Alisa Kunz DO [address] [place] [address] Phone: tel: fax: Referral ID Status Reason Start Date Expiration Date V isits Requested Visits Authorized [id number] Closed Perform Procedure 09/08/2024 03/10/2026 1 1 Encounter Details Date Type Department Care Team (Latest Contact Info) Description 09/08/2024 1:55 PM EDT - 09/08/2024 11:59 PM EDT [facility] [address] 5th Floor [address], [address] [place] [address] Localized swelling, mass and lump, [...] How often do you attend chur or christian services? 1 to 4 times per year 08/30/2022 Do you belong to any clubs o r organizations such as scientology groups, unions, fraternal or athletic groups, or [...] Recorded Patient Health Questionnaire-2 Score 0 09/08/2024 [facility] - [...] any time in the past 12 m [facility], were you homeless or living in a penitentiary (including now)? No 05/27/2024 Humiliation, Afraid, Rape, [...] any time in the past 12 m [facility], were you homeless or living in a penitentiary (including now)? No 09/13/2024 CAGE ASSESSMENT Answer [...] drink first t anselmo in the morning (EYE-OPTIONS ADVISOR) to steady your nerves or to get [...] energy Not at all 09/08/2024 11:19 AM JANET Shashank Burrows Poor appetite or overeating Not [...] DIAL)Indications:T ype 1 diabetes mellitus with hyperglycemia ([facility]) Inject 14 Units under the skin every morning. 4.5 mL 3 08/04/2024 insulin lispro (HumaLOG KWIKPEN) 100 UNIT/ML injection penIndications:Typ e 1 diabetes mellitus with hyperglycemia ([facility]) Inject 2-6 units before meals plus 1:60>150. [...] tabletIndications: Systemic lupus erythematosus (SLE) in adult ([facility]) Take 2 tablets by mouth 2 times a day. 360 tablet 1 08/27/2024 nitroglycerin (Nitrostat) 0.[address] 1 tablet under the tongue every 5 minutes as needed for chest pain. oxygen (O2) gas Inhale 2 L nightly. via nasal canula Pitavastatin Calcium (Livalo) 4 MG tabletIndications: Type 1 diabetes mellitus with other specified complication ([facility]),Dyslipid emia Take 1 tablet by mouth [...] tabletIndications: Systemic lupus erythematosus (SLE) in adult ([facility]) Take 1 tablet by mouth daily. 90 tablet 1 07/21/2024 5 Probiotic Product (acidophilus probiotic blend) capsule Take 1 capsule by mouth every morning. 5 spironolactone (Aldactone) 25 MG tablet Take 0.25 tablets by mouth daily. 30 tablet 07/20/2024 5 documented as of this encounter Plan of Treatment Upcoming Encounters Date Type Department Care Team (Late st Contact Info) Description 10/07/2024 12:50 PM EDT Office Visit [facility] Otolaryngology [address] 3rd [place] [address] Chris Pepe MD [address] [place] [address] 10/07/2024 4:00 PM EDT Appointment Cardiac Imaging [address] [place] [address] 10/14/2024 11:00 AM EDT Office Visit [facility] Medicine Specialties [address] [place] [address] Cristian Zimmer MD [address] [place] [address] 10/18/2024 7:40 AM EDT Office Visit [facility] Internal Medicine [address], [address]rd [place] [address] Alisa Kunz, DO [address] [place] [address] 10/25/2024 10:00 AM EDT Office Visit [facility] Nephrology, Bone & Mineral Metabolism [address] [facility], [address] [place] [address] Bryon Brandon MD [address] [place] [address] 10/27/2024 1:40 PM EDT Office Visit [facility] Endocrinology [address] [place] [phone] Anne-Marie Kolb L, FINANCE INTERN [address] [facility] [address] [place] [address] 02/02/2025 8:40 AM EST Office Visit [facility] Internal Medicine [address]rd [place] [address] Alisa Kunz, DO [address] [place] [address] documented as of this encounter [...] 2:34 PM Final report signed by Sonam eWlsh MD on 09/09/2024 8:52 AM Alisa Kunz DO CV VASCULAR PROCEDURES Final [...] documented as of this encounter Care Teams Stain Dipper Relationship Specialty Start Date End Date Alisa Kunz DO [address] [place] [phone] PCP - General Internal Medicine 03/13/21 Kodi Bustos, DO [address] [place] [phone] Surgeon Cardiothoracic Surgery 11/06/22 Sujit Arriola MD [address] [place] [address] Consulting Physician Pulmonary Disease 11/06/22 Sujit Reyes MD [address] [place] [address] Referring Physician 12/04/22 Patricia Yañez LPN [facility] TCM Nurse 08/25/24 Zee Lazar DO [address] [place], [place] [id number] Resident 09/08/24 documented as of this encounter
--- OUTSIDE RECORDS SUMMARY | 2024-09-22 11:30 | XMS_ITS | Encounter Summary ---
Author Organization [facility] Address [address] [place] [address] Care Team Providers Care Communications Field Technician Name Role Phone Alisa Kunz Primary Care Provider [phone] Encounter Details Date Type Department Care Team (Latest Contact Info) Description 09/22/2024 11:30 AM EDT Anticoagulation Visit [facility] [address] [facility] [address] [place] [address] Left ventricular apical thrombus (Primary Dx) Social History Tobacco Use Types Packs/Day Years Used Date Smoking Tobacco: Never Passive Smoke Exposure: Never Smokeless Tobacco: Never Alcohol Use Standard Drinks/Week Comments Yes 2 (1 standard drink = 0.6 oz pure alcohol) 1-2 beer at night, occassional rum AUDIT-C Answer Date Recorded Q1: How often do you have a drink containing alcohol? 4 or more times a week 09/21/2024 Q2: How many drinks containi ng alcohol do you have on a typical day when you are drinking? 1 or 2 Q3: How often do you have si x or more drinks on one occasion? Never 09/21/2024 Abuse Screen Answer Date Recorded Feels Unsafe at Home or Work/School no 09/21/2024 Feels Threatened by Someone no 09/07 Does Anyone Try to Keep You From Having Contact with Others or Doing Things Outside Your Home? no 09/21/2024 Physical Signs of Abuse Present no 09/21/2024 Housing Stability Answer Date Recorded Current Living Arrangements home 09/07 Potentially Unsafe Housing Conditions Not on luisa e 09/21/2024 Disabilities Answer Date Recorded Difficulty Concentrating, Re membering or Making Decisions no 09/21/2024 Difficulty Managing Errands Independently other (see comments) 09/21/2024 Comments No Sex and Gender Information Value Date Recorded Sex Assigned at Female 12/30/2022 3:37 PM EDT Legal Sex Female 11:33 AM EDT Gender Identity Female 12/30/2022 3:37 PM EDT Sexual Orientation Not on file documented as of this encounter Progress Notes * Reema Beal, PharmD - 09/22/2024 11:30 AM EDT [facility] Progress Note Patient Demographics Method of INR reporting: blinkbox music Home Monitor SN [id number] Estimated OOP Cost: Indication: Left Ventricular Atypical Thrombus (~2012) Referring Provider Nanette Pryor APRN Reason patient is not on a DOAC: Goal INR: 2-3 Warfarin Start Date ~02/12/24 Reason patient is not on home monitor: [id number]: Planned Duration of Therapy Indefinite Relevant medical [...] [facility] Admitted [facility] Date 05/25 05/31 06/07 4/8 4/9 06/22 07/27 08/03 6/08/27 Total Weekly Dose 25 mg 35 mg 32.5 mg 32.5 mg 32.5 mg 32.5 mg 30 mg 32.5 mg Admission 32.5 mg 37.5 mg 32.5 mg INR 1.9 1.6 4.1/3.6 8</8< 2.3 2.6 2.7 3.8 3.2 1.9 - HM 1.4 - Clinic 1.32 - PET TRAINING INSTRUCTOR 2.8 2.0 Notes Admitted [facility] Rec'd 05/27 HM 1-BILL TODAY HM 2- no leonid; In clinic HM 3 - no bill HM 4 - no bill HM 1- BILL TODAY HM 2 - no bill Rec'd 08/11 HM 3 - no bill HM 4- no bill Rec'd 09/02 In clinic Date Total Weekly Dose INR Notes Patient Contact Information Verbal release: Signed 03/05/24 Preferred contact number: [phone] Alternative contact number(s): [phone] (Doron) [phone] (Ruthie) [phone] (Madyson) Patient Appropriate for WarfNoCall ? No Preferred contact name: Mcihelle Felipe Alternative contact name(s): Doron Felipe () Ruthie Chong (Daughter) Madyson Hernandes (Daughter) Preferred contact relation: Self Lab contact information (if applicable): Subjective Findings Drug Interactions Dietary Findings Historical: duloxetine, levothyroxine, ezetimibe, furosemide Historical GLV intake (date updated): broccoli/cabbage every now and then, not much other GLV New (including OTC): no GLV changes this encounter: no Alcohol and Tobacco Historical: 2 beers or 1 cocktail per evening, no tobacco New: Patient Findings Negatives: Signs/symptoms of thrombosis, Signs/symptoms of bleeding, Laboratory test error suspected, Change in health, Change in alcohol use, Change in activity, Upcoming invasive procedure, Emergency department visit, Upcoming dental procedure, Missed doses, Extra doses, Change in medications, Change in diet/appetite, Hospital admission, Bruising, Other complaints Comments: Patient came in to QC Home monitor. On her monitor INR was 2.6 and in clinic 2.0. Tested another home monitor and INR was 2.5. Due to high percent error suggested patient go to outside lab for testing via venipuncture Cardioversion rescheduled for this Friday09/24/24. Assessment and Plan: INR therapeutic at 2.8 (2.0-3.0). Instructed patient to continue regimen of warfarin 5 mg daily except 2.5 mg until recheck. Recheck INR Thursday 09/28. Patient prefers testing Tuesdays. Verbal and written information provided. Michelle Felipe expresses understanding by teach back and has no further questions at this time. Order sent to [facility] Reema Beal PharmD 09/22/2024 12:04 EDT documented in this encounter Plan of Treatment Upcoming Encounters Date Type Department Care Team (Late st Contact Info) Description 12/02/2024 3:30 PM EDT Office Visit [facility] CARDIOLOGY [address] [place] [address] [place] [address] Sujit Reyes MD [address] [facility] [address] [id number] 01/19/2025 1:45 PM EST Office Visit [facility] CARDIOLOGY [address] [address] Naveen Velasquez MD [address] [facility] [address] [place] [address] documented as of this encounter Procedures Procedure Name Priority Date/Time Associated Diagnosis Comments POCT PROTIME - INR Routine 09/22/2024 11 :47 AM EDT documented in this encounter Results * (ABNORMAL) POC Protime / INR (09/22/2024 11:47 AM EDT) Protime 24.2(H) 10.0 - 13.8 seconds 09/22/2024 11:49 AM EDT [facility] INR 2.0(H) 0.91 - 1.09 09/22/2024 11:49 AM EDT [facility] Blood 09/22/2024 11:4 7 AM EDT 09/22/2024 11:49 AM EDT LUIS Dimas POINT OF CARE TEST ORDERAB LES Final Result [facility]
[address] [place] [address], documented in this encounter Visit Diagnoses Diagnosis Left ventricular apical thrombus- Primary documented in this encounter Care Teams Communications Field Technician Relationship Specialty Start Date End Date Alisa Kunz DO [address] [place] [address] PCP - General Internal Medicine 04/26/21 documented as of this encounter
--- OUTSIDE RECORDS SUMMARY | 2024-09-27 13:20 | XMS_ITS | Encounter Summary ---
Author Organization [facility] Address [address] [place] [address] Care Team Providers Care Fire Alarm Dispatcher Name Role Phone Alisa Kunz DO Primary Care Provider Kodi Bustos DO Unavailable [phone] Sujit Arriola MD Unavailable [phone] Sujit Reyes MD Unavailable [phone] Patricia Yañez LPN Unavailable Unavailab Zee Lr DO Unavailable [phone] Reason for Visit * Reason Comments Follow-up Encounter Details Date Type Department Care Team (Late st Contact Info) Description 09/27/2024 1:20 PM EDT Office Visit [facility] Clinic [address] [place] [address] [place] [address] Pleural effusion (Primary Dx); Longstanding persistent atrial [...] Recorded Patient Health Questionnaire-2 Score 0 09/08/2024 [facility] - Occupational Stress Questionnaire Answer Date Recorded [...] money to buy more. Never true 09/18/19 Within the past 12 months, t he [...] living in a mcc (including now)? No 09/17/2024 CAGE ASSESSMENT Answer [...] t anselmo in the morning (EYE-OCCUPATIONAL THERAPY SUPERVISOR) to steady your nerves or to get rid of a hangover? 0 08/14/2024 CAGE Questionnaire Score 0 025 Utilities Answer Date Recorded In the past 12 months has th [employer], gas, oil, or water [employer] threatened to shut off services in [...] We have made you an appointment with [facility]in Clinic (Anticoagulation Clinic) as we discussed. Your appointment is on 09/28/24 at 1:00PM - Clinic staff recommended to also review your myChart if you need additional appointment details. [facility] Anticoagulation Clinic [facility] [facility], [address] [place] [address] Phone number: [phone] Go immediately to the ER with any chest pain/palpitations/shortness of breath, seizure like activity, or stroke like symptoms (for example but not limited to: slurred speech, dizziness, one sided weakness, altered gait, facial droop, sudden terrible headache or worst headache of life) * Progress Notes - Dinah Ramirez, YAMILET - 09/27/2024 1:20 PM EDT Transitional Care Management Progress Note: Vjzx-vn-Jqjj Visit Patient: Michelle Felipe : 1950 PCP: [...] levels >2 -Will set up appointment with [facility] next [facility] -Continue home metoprolol [...] with next appt 10/18/24. Follow up appointments: [facility] 09/30/24, ENT 10/07/24, ENG 10/07/24, Cardiology 10/07/24, Pulm 10/14/24, [facility] 10/18/24, Nephrology 10/25/24, Endocrinology 10/27/24, [facility] 12/22/24, Cardiology 01/19/25, [facility] 02/02/25, [facility] 03/28/25 Note to patient: The 21st Century Cures Act makes medical notes like [...] clinical opinion of the practitioner. Dinah Ramirez, KEYMODULE ASSEMBLY SUPERVISOR 09/27/2024 1:27 PM [1] Past Medical History: [...] CARDIAC PACEMAKER PLACEMENT N/A Pacemaker Placement from [employer] CARPAL TUNNEL RELEASE N/A Neuroplasty Decompression Median Nerve At Carpal Tunnel from [employer] CERVICAL BIOPSY W/ LOOP ELECTRODE EXCISION 2010 SECTION, CLASSIC 1977, 1979 SECTION, LOW TRANSVERSE N/A Section from [employer] COLONOSCOPY N/A Complete Colonoscopy from [employer] CORONARY ARTERY BYPASS GRAFT N/A CABG from [employer] EYE SURGERY N/A Eye Surgery from [employer] FRACTURE SURGERY SPINE SURGERY THORACENTESIS TOE SURGERY Left 02/07/2024 hematoma removal of upper skin on L big toe TONSILLECTOMY N/A Tonsillectomy from [employer] [3] Family History Problem Relation Name Age of Onset Conversions - Other Mother cindi stamper alfredito kelin Goiter (Diffuse Nontoxic) Heart disease Mother cindi stamper alfredito kelin Hypertension Mother cindi stamper alfredito kelin Stroke Mother cindi stamper alfredito kelin COPD Mother cindi stamper alfredito kelin Alpha-1 antitrypsin deficiency Mother cindi stamper alfredito kelin Arthritis Father Doron E Alfredito Hypercholesterolemia Father Doron E Norris Obesity Father Doron E Norris COPD Father Doron E Alfredito Alcohol abuse Father Doron E Norris Diabetes Sibling Cancer Other Doron E Alfredito Conversions - Other Other Goiter (Diffuse Nontoxic) Heart disease Other Cindi Marry Stamper Alfredito Kelin documented in this encounter Plan of Treatment Upcoming Encounters Date Type Department Care Team (Late st Contact Info) Description 10/07/2024 12:50 PM EDT Office Visit [facility] Otolaryngology [address], [address]rd [place] [address] Chris Pepe MD [address] [place] [address] 10/07/2024 4:00 PM EDT Appointment Cardiac Imaging [address] [place] [address] 10/14/2024 11:00 AM EDT Office Visit [facility] Medicine Specialties [address], [address]nd [place] [address] Cristian Zimmer MD [address] [place] [address] 10/18/2024 7:40 AM EDT Office Visit [facility] Internal Medicine [address], [address]rd [place] [address] Alisa Kunz, DO [address] [place] [address] 10/25/2024 10:00 AM EDT Office Visit [facility] Nephrology, Bone & Mineral Metabolism [address], [address] [place] [address] Bryon Brandon MD [address] [place] [address] 10/27/2024 1:40 PM EDT Office Visit [facility] Endocrinology [address] [place] [address] Anne-Marie Kolb L, KEYMODULE ASSEMBLY SUPERVISOR [address] [place] [address] 02/02/2025 8:40 AM EST Office Visit [facility] Internal Medicine [address], [address]rd [place] [address] Alisa Kunz, DO [address] [place] [address] documented as of this encounter Results * (ABNORMAL) Protime-INR (09/27/2024 2:29 PM EDT) [facility] Prothrombin Time 19.5(H) 12.0 - 14.3 sec LAB COAGULATION METHOD 09/27/2024 5:42 PM EDT [facility] INR 1.6(H) 0.9 - 1.1 LAB COAGULATION METHOD 09/27/2024 5:42 PM EDT [facility] Blood Venous blood specimen / Unknown Venipuncture / Unknown 09/27/2024 2:29 PM EDT 09/27/2024 2:29 PM EDT Narrative [facility] - 09/27/2024 5:42 PM EDT OPTIMAL INR RANGES FOR PATIENT ON ORAL ANTICOAGULANT THERAPY Prevention of venous thromboembolism INR 2.0 to 3.0 In patients with heart disease: Atrial fibrillation INR 2.0 to 3.0 Valvular heart disease INR 2.0 to 3.0 Tissue heart valves INR 2.0 to 3.0 Mechanical prosthetic valves INR 2.5 to 3.5 Prevention of recurrent PR INR 2.5 to 3.5 June Ashley KEYMODULE ASSEMBLY SUPERVISOR LAB BLOOD ORDERABLES Final Result [facility] [address] [place] [address] documented in this encounter Visit Diagnoses Diagnosis [...] documented as of this encounter Care Teams Fire Alarm Dispatcher Relationship Specialty Start Date End Date Alisa Kunz DO [address] [phone] PCP - General Internal Medicine 03/13/21 Kodi Bustos DO [address] [address] Surgeon Cardiothoracic Surgery 11/06/22 Sujit Arriola MD [address] [place] [address] Consulting Physician Pulmonary Disease 11/06/22 Sujit Reyes MD [address] [place] [address] Referring Physician 12/04/22 Patricia Yañez LPN [facility] TCM Nurse 08/25/24 Zee Lazar DO [address] [place] [address] Resident 09/08/24 documented as of this encounter
--- OUTSIDE RECORDS SUMMARY | 2024-10-04 10:27 | XMS_ITS | Encounter Summary ---
Author Organization [facility] Address [address] [place] [address] Care Team Providers Care Forestry Contractor Name Role Phone Alisa Kunz DO Primary Care Provider [phone] Kodi Bustos DO Unavailable [phone] Sujit Arriola MD Unavailable [phone] Sujit Reyes MD Unavailable [phone] Patricia Yañez LPN Unavailable Unavailab Zee Lr DO Unavailable [phone] Encounter Details Date Type Department Care Team (Latest Contact Info) Description 09/15/2024 Travel Social History Tobacco Use Types Packs/Day [...] often do you attend chur ch or oriental orthodox services? 1 to 4 [...] 0 09/08/2024 [facility] of Occupat ional Health - [...] time in the past 12 m [facility], were you homeless or living in a [...] time in the past 12 m [facility], were you homeless or living in a correction (including now)? No 09/13/2024 CAGE ASSESSMENT Answer [...] drink first t anselmo in the morning (EYE-TRANSFER OPERATOR) to steady your nerves or to get rid of a hangover? 0 08/14/2024 CAGE Questionnaire Score 0 025 Utilities Answer Date Recorded In the past 12 months has th e [employer], gas, oil, or water [employer] threatened to shut off services in [...] 8:00 AM EDT Sunny Ramirez RN * Question Answer Date of Assessment Author 1. Wish to be (Past 1 Month) No 025 8:00 AM EDT Sunny Ramirez, EVITA 2. Non-Specific Active Suici dillon Thoughts (Past 1 Month) No 09/15/2024 8:00 AM EDT Flora Ramirez RN 6. Suicidal Behavior (Lifetime) No 8:00 AM EDT Sunny Ramirez, EVITA documented as of this encounter Plan of Treatment Upcoming Encounters Date Type Department Care Team (Late st Contact Info) Description 10/07/2024 12:50 PM EDT Office Visit [facility] [address], [address] [place] [address] Chris Pepe MD [address] [place] [address] 10/07/2024 4:00 PM EDT Appointment Cardiac Imaging [address] [place] [address] 10/14/2024 11:00 AM EDT Office Visit [facility] [address], [address] [place] [address] Cristian Zimmer MD [address] [place] [address] 10/18/2024 7:40 AM EDT Office Visit [facility] Internal Medicine [address], 3rd [place] [address] Alisa Kunz, DO [address] [facility] [address] [place] [address] 10/25/2024 10:00 AM EDT Office Visit [facility] Nephrology, Bone & Mineral Metabolism [address], [address] [place] [address] Bryon Brandon MD [address] [place] [address] 10/27/2024 1:40 PM EDT Office Visit [facility] Endocrinology [address] [place] [address] Anne-Marie Kolb L, CALENDERING MACHINE OPERATOR [address] [facility] [address] [place] [address] 02/02/2025 8:40 AM EST Office Visit [facility] Internal Medicine [address], 3rd [place] [address] Alisa Kunz, DO [address] [place] [address] documented as of this encounter Visit Diagnoses Not on filedocumented in this encounter Additional Health Concerns Assessment Noted Time PHQ-9 Depression Total Score: 0 09/09/19 11:19 AM EDT A fall risk assessment has been complete d for the patient 09/08/2024 11:19 AM EDT A Body Mass Index follow-up plan has been documented for the patient 09/15/2024 1:52 PM EDT documented as of this encounter Care Teams Forestry Contractor Relationship Specialty Start Date End Date Alisa Kunz DO [address] [place] [address] PCP - General Internal Medicine 03/13/21 Kodi Bustos DO [address] [place] [phone] Surgeon Cardiothoracic Surgery 11/06/22 Sujit Arriola MD [address] [place] [address] Consulting Physician Pulmonary Disease 11/06/22 Sujit Reyes MD [address] [place] [phone] Referring Physician 12/04/22 Patricia Yañez LPN [facility] TCM Nurse 08/25/24 Zee Lazar DO [address] [place] [phone] Resident 09/08/24 documented as of this encounter
--- OUTSIDE RECORDS SUMMARY | 2024-10-04 10:27 | XMS_ITS | Encounter Summary ---
Author Organization [facility] Address [address] [place] [address] Care Team Providers Care Keyboard Specialist Name Role Phone Alisa Kunz DO Primary Care Provider [phone] Kodi Bustos DO Unavailable [phone] Sujit Arriola MD Unavailable [phone] Sujit Reyes MD Unavailable [phone] Patricia Yañez LPN Unavailable Unavailab Zee Lr DO Unavailable [phone] Encounter Details Date Type Department Care Team (Late st Contact Info) Description 09/16/2024 Telephone [facility] [address], [address] [place] [address] [place] [address] Social History Tobacco Use Types Packs/Day Years [...] often do you attend [facility] or [facility] services? 1 to 4 times [...] Recorded Patient Health Questionnaire-2 Score 0 09/08/2024 [facility] of Occupat ional Health - [...] any time in the past 12 m [facility], were you homeless or [...] any time in the past 12 m [facility], were you homeless or living in a fpc (including now)? No 09/17/2024 CAGE ASSESSMENT Answer [...] drink first t anselmo in the morning (EYE-FOOD ASSEMBLER) to steady your nerves or to get rid of a hangover? 0 08/14/2024 CAGE Questionnaire Score 0 025 Utilities Answer Date Recorded In the past 12 months has e [employer], gas, oil, or water [employer] threatened to shut off services in your [...] encounter Miscellaneous Notes * Telephone Encounter - Shabana Hernández RN - 09/17/2024 12:59 PM EDT Phone is still going straight to . If she calls back, please send her to [facility]. * Telephone Encounter - Shabana Hernández RN - 09/16/2024 1:51 PM EDT Called pt to offer sooner appt. Straight to . Left message to return call. * Telephone Encounter - Charo Donaldson - 09/16/2024 12:27 PM EDT Patient called She's recently been in the hospital and she needs a follow up with Dr. Shoemaker The provider in the ER doesn't believe that lupus is the cause of the fluid in her lungs, so she's wondering about the next steps She said there was previous discussion about going to [place], she's wondering if that would be the next step or if she would need to see a health promotion coordinator with [facility] She would like a call back from the nursing team as quickly as possible CB: [phone] documented in this encounter Plan of Treatment Upcoming Encounters Date Type Department Care Team (Late st Contact Info) Description 10/07/2024 12:50 PM EDT Office Visit [facility] Otol[facility]ology [address], [address]rd [place] [phone] Chris Pepe MD [address] [place] [address] 10/07/2024 4:00 PM EDT Appointment Cardiac Imaging [address] [place] [address] 10/14/2024 11:00 AM EDT Office Visit [facility] Medicine Specialties [address], [address] [place] [phone] Cristian Zimmer MD [address] [place] [phone] 10/18/2024 7:40 AM EDT [facility] Internal Medicine [address], [address]rd [place] [address] Alisa Kunz DO [address] [place] [address] 10/25/2024 10:00 AM EDT Office Visit [facility] Nephrology, Bone & Mineral Metabolism [address], [address] [place] [address] Bryon Brandon MD [address] [place] [address] 10/27/2024 1:40 PM EDT [facility] [address] [place] [phone] Anne-Marie Kolb L, METAL FABRICATION SUPERVISOR [address] [place] [address] 02/02/2025 8:40 AM EST [facility] Internal Medicine [address] [place] [address] Alisa Kunz DO [address] [place] [address] documented as of this encounter [...] documented as of this encounter Care Teams Keyboard Specialist Relationship Specialty Start Date End Date Alisa Kunz DO [address] [place] [address] PCP - General Internal Medicine 03/13/21 Kodi Bustos DO [address] [place] [address] Surgeon Cardiothoracic Surgery 11/06/22 Sujit Arriola MD [address] [place] [address] Consulting Physician Pulmonary Disease 11/06/22 Sujit Reyes MD [address] [place] [address] Referring Physician 12/04/22 Patricia Yañez LPN [facility] PEDIATRICS CLINIC TCM Nurse 08/25/24 Zee Lazar DO [address] [place] [address] Resident 09/08/24 documented as of this encounter
--- OUTSIDE RECORDS SUMMARY | 2024-10-04 10:27 | XMS_ITS | Encounter Summary ---
Author Organization [facility] Address [address] [place] [address] Care Team Providers Care Sr. Social Media & Mobile Manager Name Role Phone Alisa Kunz DO Primary Care Provider [phone] Kodi Bustos DO Unavailable [phone] Sujit Arriola MD Unavailable [phone] Sujit Reyes MD Unavailable [phone] Patricia Yañez LPN Unavailable Unavailab Zee Lr DO Unavailable [phone] Encounter Details Date Type Department Care Team (Late st Contact Info) Description 09/16/2024 Telephone [facility] Internal Medicine [address], [address]rd [place] [address] Alisa Kunz DO [address] [place] [address] Social History Tobacco Use Types [...] any clubs o r organizations such as anglican groups, unions, fraternal or athletic groups, or [...] Recorded Patient Health Questionnaire-2 Score 0 09/08/2024 [facility] of Occupat ional Health - Occupational Stress [...] in a group home (including now)? No 09/17/2024 CAGE ASSESSMENT Answer [...] drink first t anselmo in the morning (EYE-UNIX MANAGER) to steady your nerves or to [...] encounter Miscellaneous Notes * Telephone Encounter - Juani Shell - 09/17/2024 2:57 PM EDT Notified patient. * Telephone Encounter - Alisa Kunz DO - 09/17/2024 2:45 PM EDT Sent refill, thank you! documented in this encounter Plan of Treatment Upcoming Encounters Date Type Department Care Team (Late st Contact Info) Description 10/07/2024 12:50 PM EDT Office Visit [facility] Otolaryngology [address]rd [place] [address] Chris Pepe MD [address] [place] [address] 10/07/2024 4:00 PM EDT Appointment Cardiac Imaging [address] [place] [address] 10/14/2024 11:00 AM EDT Office Visit [facility] [address], [address] [place] [address] Cristian Zimmer MD [address] [place] [address] 10/18/2024 7:40 AM EDT Office Visit [facility] Internal Medicine [address], [address]rd [place] [address] Alisa Kunz, DO [address] [place] [address] 10/25/2024 10:00 AM EDT Office Visit [facility] Nephrology, Bone & Mineral Metabolism [address], [address] [place] [address] Bryon Brandon MD [address] [place] [address] 10/27/2024 1:40 PM EDT Office Visit [facility] Endocrinology [address] [place] [address] Anne-Marie Kolb L, VICE PRESIDENT & GENERAL MANAGER [employer] [address] [place] [address] 02/02/2025 8:40 AM EST Office Visit [facility] Internal Medicine [address], [address]rd [place] [address] Alisa Kunz DO [address] [place] [address] documented as of this encounter Visit Diagnoses Diagnosis HSV (herpes simplex virus) infection Herpes simplex without mention of complication documented in this encounter Additional Health Concerns Assessment Noted Time PHQ-9 Depression Total Score: 0 09/09/19 11:19 AM EDT A fall risk assessment has been complete d for the patient 09/08/2024 11:19 AM EDT A Body Mass Index follow-up plan has been documented for the patient 09/15/2024 1:52 PM EDT documented as of this encounter Care Teams Sr. Social Media & Mobile Manager Relationship Specialty Start Date End Date Alisa Kunz DO [address] [place] [address] PCP - General Internal Medicine 03/13/21 Kodi Bustos, DO [address] [phone] Surgeon Cardiothoracic Surgery 11/06/22 Sujti Arriola MD [address] [place] [address] Consulting Physician Pulmonary Disease 11/06/22 Sujit Reyes MD [address] [place] [address] Referring Physician 12/04/22 Patricia Yañez LPN [facility] PEDIATRICS CLINIC TCM Nurse 08/25/24 Zee Lazar DO [address] [place], [place] [phone] Resident 09/08/24 documented as of this encounter
--- OUTSIDE RECORDS SUMMARY | 2024-10-04 10:27 | XMS_ITS | Encounter Summary ---
Author Organization [facility] Address [address] [place] [address] Care Team Providers Care Belt Maker Helper Name Role Phone Alisa Kunz DO Primary Care Provider [phone] Kodi Bustos DO Unavailable [phone] Sujit Arriola MD Unavailable [phone] Sujit Reyes MD Unavailable [phone] Patricia Yañez LPN Unavailable Unavailab Zee Lr DO Unavailable [phone] Reason for Visit * Reason Comments TCM Call Encounter Details Date Type Department Care Team (Late st Contact Info) Description 09/17/2024 Patient Outreach [facility] [address], [address] [place] [address] Patricia Yañez LPN [facility] TCM Call Social History Tobacco Use Types [...] How often do you attend [facility] or mu-ism services? 1 to 4 times per year 08/30/2022 Do you belong to any clubs o r organizations such as taoist groups, unions, fraternal or athletic groups, or [...] Recorded Patient Health Questionnaire-2 Score 0 09/08/2024 [facility] [place] [facility] Occupat ional Health - Occupational Stress [...] in a half-way (including now)? No 05/27/2024 Humiliation, Afraid, Rape, [...] living in a half-way (including now)? No 09/17/2024 CAGE ASSESSMENT Answer [...] drink first t anselmo in the morning (EYE-MARKING MACHINE TENDER) to steady your nerves or to get rid of a hangover? 0 08/14/2024 CAGE Questionnaire Score 0 025 Utilities Answer Date Recorded In the past 12 months has th e [employer], gas, oil, or water company threatened to [...] Progress Notes - Patricia Yañez LPN - 09/17/2024 1:20 PM EDT Admit Date: 09/09/2024 Discharge Date: 09/15/2024 Hospital Service: [facility] Discharge Diagnosis: Acute on chronic congestive heart failure, unspecified heart failure type 09/17/2024 TCM call # 1 Patient Reached: Y Outcome: Called patient for TCM nurse call. Notified patient she would need to see PCP for follow up. Patient's PCP did not have any availability, so ELIZABETH scheduled in discharge clinic. Patient statesthey will have transportation to appointment. Patient states since being home they are doing okay. Patient states that her blood pressure has been running low and she has been in contact with PCP in regards to this, and was advised to monitor her readings. Patient is also weighing herself daily. [facility] Patient denies N/V/D, fever, SOA, chest pain, abdominal pain, headaches or chills. Patient is eating, drinking, and using the restroom normally. Medications were reviewed with patient and they are compliant with medications. SDOH needs were updated with patient and no needs were identified at time of TCM call. Patient did not voice any other questions or concerns during TCM call. Action: ELIZABETH appointment scheduled for 09/27/24 at discharge clinic. Medication changes: enoxaparin 100 MG/ML solution prefilled syringe Commonly known as: Lovenox Inject 0.9 mL under the skin every evening. valACYclovir 500 MG tablet Commonly known as: Valtrex Take 1 tablet by mouth 2 times a day for 5 doses. Change: furosemide 80 MG tablet Commonly known as: Lasix Take 1 tablet by mouth daily hydroxychloroquine 200 MG tablet Commonly known as: Plaquenil Take 1.5 tablets by mouth daily. spironolactone 25 MG tablet Commonly known as: Aldactone Take 0.5 tablets by mouth daily Pause: mycophenolate 500 MG tablet Wait to take this until: September 18, 2024 Restart after you finish Valtrex Commonly known as: CellCept Take 2 tablets by mouth 2 times a day ELIZABETH appointment: 09/27/2024 @ 1:20pm with Dianh Ramirez APRN Items to address at ELIZABETH: -B/P readings documented in this encounter Plan of Treatment Upcoming Encounters Date Type Department Care Team (Late st Contact Info) Description 10/07/2024 12:50 PM EDT Office Visit [facility] Otolaryngology [address] [place] [address] Chris Pepe MD [address] [place] [address] 10/07/2024 4:00 PM EDT Appointment Cardiac Imaging [address] [place] [address] 10/14/2024 11:00 AM EDT Office Visit [facility] Medicine Specialties [address] [place] [phone] Cristian Zimmer MD [address] [place] [address] 10/18/2024 7:40 AM EDT Office Visit [facility] Internal Medicine [address] [place] [address] Alisa Kunz, DO [address] [place] [address] 10/25/2024 10:00 AM EDT Office Visit [facility] Nephrology, Bone & Mineral Metabolism [address], [address] [place] [address] Bryon Brandon MD [address] [place] [address] 10/27/2024 1:40 PM EDT [facility] End[facility] [address] [place] [phone] Anne-Marie Kolb L, CHIEF MAINTENANCE SUPERVISOR [address] [place] [phone] 02/02/2025 8:40 AM EST Office Visit [facility] Internal Medicine [address] [place] [address] Alisa Kunz, DO [address] [place] [address] documented as of this encounter [...] documented as of this encounter Care Teams Belt Maker Helper Relationship Specialty Start Date End Date Alisa Kunz DO [address] [place] [id number] PCP - General Internal Medicine 03/13/21 Kodi Bustos, DO [address] [phone] Surgeon Cardiothoracic Surgery 11/06/22 Sujit Arriola MD [address] [place] [address] Consulting Physician Pulmonary Disease 11/06/22 Sujit Reyes MD [address] [place] [phone] Referring Physician 12/04/22 Patricia Yañez LPN [facility] TCM Nurse 08/25/24 Zee Lazar DO [address] [place], [place] [id number] Resident 09/08/24 documented as of this encounter
--- OUTSIDE RECORDS SUMMARY | 2024-10-04 10:27 | XMS_ITS | Encounter Summary ---
Author Organization [facility] Address [address] [place] [address] Care Team Providers Care Terminal Superintendent Name Role Phone ZeAlisa willett Torri DO Primary Care Provider [phone] Kodi Bustos DO Unavailable [phone] Sujit Arriola MD Unavailable [phone] Sujit Reyes MD Unavailable [phone] Patricia Yañez LPN Unavailable Unavailab Zee Lr DO Unavailable [phone] Reason for Visit * Reason Onset Date Comments Med Refill 09/16/2024 Encounter Details Date Type Department Care Team (Late st Contact Info) Description 09/16/2024 Telephone [facility] Endocrinology [address] [place] [address] Anne-Marie Kolb, JACKSPOOLER [address] [facility] [address] [place] [address] Med Refill Social History Tobacco Use Types Packs/Day Years [...] How often do you attend chur or spiritism services? 1 to 4 times per year [...] Patient Health Questionnaire-2 Score 0 09/08/2024 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 0 08/14/2024 CAGE Questionnaire Score 0 025 Utilities Answer Date Recorded In the past 12 months has e [employer], gas, oil, or water zul[employer] threatened to shut off services in your [...] encounter Miscellaneous Notes * Telephone Encounter - Barbra Stout - 09/16/2024 10:43 AM EDT Called pt and she is needing a new monitor and supplies since her G7 have not arrived. Rx sent to pts requested pharmacy documented in this encounter Plan of Treatment Upcoming Encounters Date Type Department Care Team (Late st Contact Info) Description 10/07/2024 12:50 PM EDT Office Visit [facility] Otolaryngology [address] [place] [address] Chris Pepe MD [address] [place] [address] 10/07/2024 4:00 PM EDT Appointment Cardiac Imaging [address] [place] [address] 10/14/2024 11:00 AM EDT Office Visit [facility] Medicine Specialties [address] [place] [address] Cristian Zimmer MD [address] [place] [address] 10/18/2024 7:40 AM EDT Office Visit [facility] [address] Internal Medicine [address] [place] [phone] Alisa Kunz, DO [address] [place] [address] 10/25/2024 10:00 AM EDT Office Visit [facility] Nephrology, Bone & Mineral Metabolism [address], [address] [place] [address] Bryon Brandon MD [address] [place] [address] 10/27/2024 1:40 PM EDT Office Visit [facility] Endocrinology [address] [place] [phone] Anne-Marie Kolb L, JACKSPOOLER [address] [facility] [address] [place] [address] 02/02/2025 8:40 AM EST Office Visit [facility] [address] Internal Medicine [address] [place] [address] Alisa Kunz, DO [address] [place] [address] documented as of this encounter [...] documented as of this encounter Care Teams Terminal Superintendent Relationship Specialty Start Date End Date Alisa Kunz DO [address] [place] [address] PCP - General Internal Medicine 03/13/21 Kodi Bustos, DO [address] [place] [address] Surgeon Cardiothoracic Surgery 11/06/22 Sujit Arriola MD [address] [place] [address] Consulting Physician Pulmonary Disease 11/06/22 Sujit Reyes MD [address] [place] [address] Referring Physician 12/04/22 Patricia Yañez LPN [facility] TCM Nurse 08/25/24 Zee Lazar DO [address] [place] [address] Resident 09/08/24 documented as of this encounter
--- OUTSIDE RECORDS SUMMARY | 2024-10-04 10:27 | XMS_ITS | Data Portability ---
Author Organization [facility] [place] [facility] Address [address] [place] [address] Care Team Providers Care Bronzer Name Role Phone GILLES COOPER Immersion Metalcleaner BRUCE SIEGEL Primary Care Provider VETO MONTESINOS Training And Quality Manager Assessment No assessment recorded. Plan of Treatment Reminders Order Date Submit Date Provider Last Modified By Organization Details Last Modified Time Details Appointments FOLLOW UP DAK 2024 03:10P M DR. HUNT Not available Not available Not available LEVEL 2 2025 01:15P M GILLES COOPER MD Not available Not available Not available Lab jas wet prep 2024 025 [facility], [address] [place] [address], [phone], 07/05/2024 15:58:20 surgical pathology study 2024 025 [facility], [address] [place] [address], [phone], 07/06/2024 10:48:12 Referral None recorded. Procedures None recorded. Surgeries None recorded. Imaging None recorded. Medication Orders clobetaso l 0.05 % topical ointment 2024 025 [facility], [address] [place] [address], [place], [phone], 07/05/2024 15:58:20 Patient TargetsNo targets recorded. Patient InstructionsNo instructions recorded. Reason for Referral None Reported. Results Created Date Observation Date Name Description Value Unit Range Abnormal Flag Note LastModifiedBy Organization Detail LastModifiedTime 07/06/19 25 07/05/2024 SURGI AGAPITO surgical SEE BELOW [place] topat holog y Repor t NAME: GUS ROMERO PATH: [id number] PROCE DURE DATE: [...] Out Date: 07/06 10:47 1 Not Available [facility] [address] [place], [address], 07/06/2024 10:48:11 07/06/1907/05/2024 jas wet prep JAS Prep negati ve Not Available [facility] [address], [place], [address], 07/05/2024 12:13:43 03/23/19 25 03/23/2024 optic al coher ence tomog alina, optic nerve No observ ation record ed. [email or web address] Not Available 2024 13:38:05 09/24/19 25 09/23/2024 optic al coher ence tomog alina, retin a No observ ation record ed. [email or web address] Not Available 2024 16:05:31 09/24/19 25 09/23/2024 optic al coher ence tomog alina, retin a No observ ation record ed. [email or web address] Not Available 2024 08:23:31 09/25/19 25 09/23/2024 visua l field test No observ ation record ed. [email or web address] Not Available 2024 14:36:28 Result Notes None recorded. Problems Name Problem SNOMED Code Status Onset Date Resolution Date Notes Provider Name and Address Organization Details Recorded Time Secondary diabetes mellitus 8437567 Active 2015 From Automated Load;Provi oscar: Yong Zhu;Statu s: Active Not Available [facility] 6 03:07:23 Excess skin of eyelid 171446205 Active 2015 From Automated Load;Provi oscar: Yong Zhu;Statu s: Active Not Available formerly [facility] 6 03:07:23 Tear film insuffici ency 77413620 Active 2015 From Automated Load;Provi oscar: Yong Zhu;Statu s: Active Not Available [facility] 6 03:07:23 Retinopat hy due to type 1 diabetes mellitus 605052052 Active 2015 From Automated Load;Provi oscar: Yong Zhu;Statu s: Active Not Available formerly [facility] 6 03:07:23 Heart failure 02974265 Active 2024 [facility] 5 12:01:23 Systemic lupus erythemat osus 87095152 Active 2024 [facility] 5 12:01:50 Type 1 diabetes mellitus 01540796 Active 2024 [facility] 5 12:02:02 Problem Notes None recorded. Procedures Surgical History Date Name Laterality Status Provider Name and Address Organization Details Recorded Time DAK - Cryo AK completed Mike Arnold [facility] 09/30/2024 13:02:38 OCT/Retina completed GILLES COOPER MD [address] [place] [address], [phone], [facility] 09/23/2024 15:15:57 025 thoracentesis completed Corky Powell [facility] 09/30/2024 12:49:02 025 DAK - Cryo AK completed Kayal Prince [facility] 07/05/2024 12:20:10 025 DAK - Biopsy, Tangential completed Kayla Prince [facility] 07/05/2024 12:09:54 025 OCT/Nerve completed GILLES COOPER [place], [address], [facility] 03/23/2024 17:00:49 024 DAK - Cryo AK completed Kayla Prince [facility] 10/30/2023 14:05:21 024 DAK - Biopsy, Tangential completed Kayla Prince [facility] 10/30/2023 14:09:15 024 Visual Field Extended completed GILLES COOPER MD [place], [address], [facility] 06/16/2023 14:49:13 024 OCT/Retina completed GILLES COOPER MD [place], [address], [facility] 04/16/2023 14:09:44 023 OCT/Nerve completed GILLES COOPER MD [facility] [place], [address], [facility] 01/06/2023 09:15:48 023 OCT/Retina completed GILLES COOPER MD [facility] [place], [address], [facility] 01/06/2023 09:15:41 023 biopsy of lung completed Gilles Nayak [facility] 01/06/2023 08:27:56 023 Visual Field Extended completed GILLES COOPER MD [address] [place] [address], [phone], [facility] 05/14/2022 14:44:47 022 OCT/Retina completed GILLES COOPER MD [address] [place] [address], [phone], [facility] 10/08/2021 16:44:46 022 OCT/Nerve completed GILLES COOPER MD [address] [place] [address], [address], [facility] 05/24/2021 16:40:05 022 OCT/Retina completed GILLES COOPER MD [address] [place] [address], [address], [facility] 05/24/2021 16:40:06 021 Visual Field Extended completed GILLES COOPER MD [address] [place] [address], [address], [facility] 11/22/2020 16:17:23 021 OCT/Nerve completed GILLES COOPER MD [address] [place] [address], [address], [facility] 08/17/2020 13:57:05 017 Cystourethroscopy completed Tia Hall [facility] 08/28/2016 14:44:58 017 Post Void Residual; Ultrasound completed Radha Herron [facility] 07/24/2016 16:36:07 Imaging Results None recorded. Procedure Notes None recorded. Medical Equipment None Reported. Allergies Allergen ID Allergen Name Allergen Category Reaction Reaction Severity Criticality Documentation Date Start Date Code Code System Note Provider Name and Address Organization Details Recorded Time 527233 morphine sulfate medicatio n Not available Not available Not available 02/01/20162012 00986 RxNorm Comme nt: Creat ed By: Trav Morales; Creat ed Date: 2012 3:45: 55 PM; Not Available [facility] 6 12:01:18 428162 tetracycl ine hydrochlo ride medicatio n Not available Not available Not available 02/01/20162015 66531 6 RxNorm Comme nt: Creat ed By: Muna Mata ;Gely ely Date: 2015 1:56: 37 PM; Not Available [facility] 6 12:01:18 789339 morphine sulfate medicatio n other Not available Not available 02/02/20162008 11807 RxNorm React ion: OTHER ; Comme nt: Creat ed By: Donn Do ely Date: 009 10:16 :46 AM; Not Available [facility] 6 08:25:26 857708 Keflex medicatio n Not available Not available Not available 08/16/201997667 7 RxNorm Nilam Jett [facility] 0 14:21:12 967042 Product containin g penicilli n (product) medicatio n rash Not available Not available 05/24/2021 81278 8001 SNOMED David Maribel cuellar [facility] 2 15:50:09 243394 Crestor medicatio n Not available Not available Not available 10/08/2021 02434 4 RxNorm Yamel Wild [facility] 2 15:39:18 688304 rosuvasta tin medicatio n Not available Not available Not available 10/08/2021 69912 2 RxNorm Yamel [facility] 2 15:39:36 Medications Name Sig Start [...] completed Not Available Not Available Not Available spironola ctone active Not Available Not Available Not Available [...] 0 Not Available Not Available Not Available Toujeo Max U-300 SoloStar active Not Available Not Available Not Available aspirin 81 mg capsule Take 1 capsule every day by oral route. active Not Available Not Available No t Available Vitals None Recorded Social History Question Answer Notes LastModified by Organizat ion Details LastModified Time Tobacco Smoking Status Never Smoker Esperanza Barb [facility] 06/26/2016 15:31:37 How Much Tobacco Do You Chew? None [email or web address] Information not available 09/30/2016 What Was The Date Of Your Most Recent Tobacco Screening? 12/29/2023 [email or web address] Information not available 12/29/2023 Has Tobacco Cessation Counseling Been Provided? No [email or web address] Information not available 09/30/2016 Sex: Female Functional Status Question Answer Note LastModified by Organization D etails LastModified Time What is your level of alcohol consumption? Moderate [email or web address] Information not available 09/30/2016 Mental Status None recorded. Family History Relationship Description Onset Age of this Age Resolved Age Notes LastModified by Organization Details LastModified Time Father Arthritis [email or web address] Not avail able 09/30/2016 13:26:28 Notes:1. Heart disease MOTHE R and grandparents 2. Hypertension mother 3. Acute myocardial infarction gfth 4. Stroke syndrome mth 5. Droopy Eyelid gmth Medical History Condition Response Emphysema N Glaucoma N Depression Y COPD N Diabetic Eye Disease Y Anemia Y Heart Attack (RI) Y Diabetes Y Bleeding Disorder N Arthritis Y Eye Trauma Y Acid Reflux (GERD) N Double Vision N Age-related Macular Degeneration N RD/retinal tear N Ocular trauma N Cataract Y Asthma N Sleep Apnea Y Thyroid Disorder Y Skin Cancer Y Hepatitis Y Heart Disease Y Rheumatoid Arthritis N Hypertension Y Glasses/Contacts Y Gynecological HistoryNo gynecological history recorded. Obstetrics History GPAL:G 0 P 0 0 0 0 Past Encounters Encounter ID Performer Location Encounter Start Date Encounter Closed Date Diagnosis/Indication Diagnosis SNOMED-CT Code Diagnosis ICD10 Code Diagnosis Note [id number] YONG ZHU MD [facility] [address] [place] [address] 06/26/2016 14:57:47 06/28/2016 08:27:08 Proliferative retinopathy due to diabetes mellitus 59838533 E13.3593 Epiretinal membrane 3676 63429 H35.373 Bilateral pseudophakia 4824078994 1708035 Z96.1 bilateral Type 1 albino betes mellitus 48869711 E10.516 [id number] TONY LYNN MD [facility] [address] [place] [address] 07/24/2016 15:44:15 07/24/2016 16:45:12 Delay when starting to pass urine 6433324 R39.11 we discussedc onsiderati on of cystoscopy with possible urethral dilation. Thus just we perform this under sedation. We will arrange for this later this month. Retention of urine 26668 4002 R33.9 Microscopic hematuria 19 7599584 R31.21 [id number] TONY LYNN MD SURGERY SCHEDULE [address] [place] [address] 08/07/2016 07:54:29 08/07/2016 07:57:18 [id number] TONY LYNN MD [facility] [address] [place] [address] 08/28/2016 13:38:12 08/30/2016 15:09:08 Urethral stenosis 476952955 N35.9 Perimenopa usal atrophic vaginitis 406830369 N95.2 She will try Estrace cream if economical ly feasible. She will follow-up with me in 3-4 months and Karen [id number] CHRIS ROCHA APRN [facility] OGY [address] [place] [address] 09/30/2016 13:13:19 10/01/2016 10:18:02 Anti-nuclear factor detected 646338637 R76.8 66 year old female presents with [...] if abnormal will have her follow up accordingl isaias [id number] CHRIS ROCHA APRN RHEUMATOL OGY [address] [place] [address] 01/31/2017 15:37:06 01/31/2017 16:35:06 Anti-nuclear factor detected 249160648 R76.8 Patient complains of fatigue, joint pains, [...] clinically monitor.Alexys jameson offered reassuranc e today. [id number] KATHI LOPEZ MD NEUROSURG JOZEFJolene [facility] CL[facility] [address] [place] [address] 05/12/2017 13:25:54 05/12/2017 14:32:04 Spondylolisthesis 741471627 M43.10 Minutes spent reviewing images, discussing the diagnosis and coordinati ng care: 30 min [id number] YONG ZHU MD [facility] [address] [place] [address] 5 08/12/2017 13:35:44 08/13/2017 09:21:54 Type 1 diabetes mellitus 99291677 E10.319 Quiescent proliferative retinopathy due to diabetes mellitus 461306155 E11.3599 Bilateral pseudophakia 7856702920 0194963 Z96.1 bilateral Secondary glaucoma 11780 004 H40.52X1 [id number] YONG ZHU MD OPHTHALMO LOGJolene [address] [place] [address] 5 01/22/2018 15:08:21 01/23/2018 10:13:59 Primary open angle glaucoma 71537472 H40.1131 Type 1 albino betes mellitus 31579793 E10.37X1 ou Myopic astigmatism 89246 4005 H52.209 Presbyopia 99106730 H52. 4 Bilateral pseudophakia 3731597244 7075065 Z96.1 bilateral Non-high-r isk proliferative retinopathy with clinically significant macular edema due to diabetes mellitus 451170236 E11.3519 [id number] YONG ZHU MD OPHTHALMO LOGJolene [address] 5 05/21/2018 15:40:26 05/22/2018 11:49:46 Primary open angle glaucoma 36464244 H40.1131 Type 1 albino betes mellitus 83977529 E10.37X1 ou Quiescent proliferative retinopathy due to diabetes mellitus 687100619 E11.3599 Macular ed merlyn due to diabetes mellitus 278496695 E11.170 [id number] YONG ZHU MD OPHTHALMO LOGJolene [address] [place] [address] 5 10/08/2018 12:53:43 10/09/2018 11:51:53 Primary open angle glaucoma 61873351 H40.1131 Bilateral pseudophakia 7361555146 3446418 Z96.1 bilateral Proliferat steven retinopathy due to type 1 diabetes mellitus 4995069286 9101 E10.3599 bilateral [id number] YONG ZHU MD [facility] [address] [address] 08/16/2019 14:02:22 08/17/2019 15:46:45 Type 1 diabetes mellitus 92012976 E10.37X1 ou High risk proliferative retinopathy without macular edema due to diabetes mellitus 470785303 E11.3599 ou Epiretinal membrane 3676 02763 H35.373 left Blurring o f visual image 385993507 H53.8 right [id number] YONG ZHU MD [facility] [address] [place], [place] [address] 02/14/2020 14:06:52 02/14/2020 16:15:31 Adverse reaction to drug 75298277 T50.905A Modafinil (simlar ti ritalin) Type 1 albino betes mellitus 30609093 E10.37X1 ou Proliferat steven retinopathy due to type 1 diabetes mellitus 0466278738 9101 E10.3599 bilateral Quiescent proliferative retinopathy due to diabetes mellitus 180415270 E11.3599 ou Bilateral pseudophakia 5739050101 4317215 Z96.1 bilateral Myopic astigmatism 98833 4005 H52.209 od Presbyopia 69575428 H52. 4 [id number] GILLES COOPER MD [facility] [address] [place] [address] 08/17/2020 12:36:13 08/17/2020 16:03:23 Primary open angle glaucoma 11242878 H40.1132 iop elevated today but pt not sure if got enough drop. states iop runs high teens usually rec continue latanopros t qhs ou baseline rnfl today shows sev thinning but cold be d/t PRP nerves appear okay ou rec 3 mo iop check, hvf - 10-2 (previous constricti on d/t prp) Pseudophakia 14187290 Z9 6.1 Proliferat steven retinopathy due to type 1 diabetes mellitus 4818034151 9101 E10.3599 continue to follow with TANESHA. [id number] GILLES COOPER MD [facility] [address] [place] [address] 11/22/2020 15:00:00 11/22/2020 16:18:12 Primary open angle glaucoma 61901538 H40.1132 iop better borderline oshvf today 10=2 relatively okay todayconti nue latanoprst qhs6 mo complete, rnfl [id number] GILLES COOPER MD [facility] [address] [place] [address] 05/24/2021 15:33:06 05/24/2021 16:45:49 Primary open angle glaucoma 65413621 H40.1132 iop better borderline os - stablernfl with stable thinning ou todayconti nue latanopros t qhs ou6 mo hvf 10-2 and iop check Proliferat steven retinopathy due to type 2 diabetes mellitus 9588825629 109 E11.3599 oct shows possible cysts today - rec f/u with TANESHA as scheudled [id number] GILLES COOPER MD [facility] [address] [place] [address] 10/08/2021 15:09:27 10/08/2021 16:47:33 Proliferative retinopathy due to type 2 diabetes mellitus 4790604678 109 E11.3599 oct shows conitnued cysts os - rec f/u with RAKod no swellingof fered mr today - no significan t changes Primary op en angle glaucoma 34303688 H40.1132 iop borderline f/u as scheudled for hvf 10-2 Corneal dystrophy 916802 4 H18.509 banding od - still not in vis axis but may be progressin g - obs for now, consider chelation in future [id number] GILLES COOPER MD [facility] [address] [place] [address] 05/01/2022 09:30:33 05/01/2022 12:07:24 Proliferative retinopathy due to type 2 diabetes mellitus 8420060567 109 E11.3599 continue f/u with TANESHA Primary op en angle glaucoma 58840702 H40.1132 needs hvf 10-2 on return Corneal dystrophy 122885 4 H18.509 banding od - still not in vis axis but may be progressin g - obs for now, consider chelation in future Conjunctivitis 1655643 H 10.013 one drop qid x2 weekswash handsdont share hygiene objects2 week conj check [id number] GILLES COOPER MD [facility] [place] [address],[facility] FLOOR [place] [address] 05/14/2022 13:34:14 05/14/2022 15:40:58 Primary open angle glaucoma 29490399 H40.1132 hvf 10-2 today stablecont inue latanopros tqhs ou6 mo complete, rnfl, oct mac Acute conj unctivitis caused by chemical 7612097610 78200 H10.213 resolved, obs for now [id number] GILLES COOPER MD OPHTHALMO LOGJolene [address] [place] [address] 5 01/06/2023 07:51:36 01/06/2023 10:23:45 Long-term drug therapy 986401543 Z79.899 just started margaert - one pill/dayma x daily dose per body weight is 331mg/day - recommend stay under this dose.rec f/u with TANESHA for 2nd opinion given significan t diabetic eye diseasedis cussed risks of plaquenil usage and vision loss. Primary op en angle glaucoma 08906719 H40.1132 IOP good todayconti nue latanopros t qhs ouRnfl today shows thinning os>od6 mo iop check, hvf 10-2 Proliferat steven retinopathy due to type 2 diabetes mellitus 6571348471 109 E11.3599 continue f/u with RAKfew cystic changes on oct todayglc control recommende donaldo [id number] GILLES COOPER MD [facility] [address],[facility] FLOOR [address] 5 04/16/2023 12:56:15 04/16/2023 14:13:30 Proliferative retinopathy due to type 2 diabetes mellitus 9866712570 109 E11.3599 continue f/u with RAKoct today shows increased cme od - likely cause of subjective vis declinerec f/u with TANESHA for thisrec consider hand/stand magnifier Primary op en angle glaucoma 79077281 H40.1132 iop high today -rec compliance with dropsconti nue latanopros t qhs ourecheck iop 2 mo with hvf 10-2 Bilateral pseudophakia 6868464988 7574274 Z96.1 os has some phacodones is today - not sure if present previously - monitormay call back for lined bf Calcific b and keratopathy 184027090 H18.429 discussed chelation in future [id number] GILLES COOPER MD [facility] [address] [address] 06/16/2023 13:49:36 06/16/2023 15:10:32 Primary open angle glaucoma 63057222 H40.1132 iop high today but betterrec add brimonidin e bid ou3 mo iop checkhvf today with defects ou - mild decline of md carltonec f/u with TANESHA for eval retina/margaret quenil Long-term drug therapy 933794822 Z79.[address] started margaret - one pill/dayma x daily dose per body weight is 331mg/day - recommend stay under this dose.rec f/u with TANESHA for 2nd opinion given significan t diabetic eye diseasedis cussed risks of plaquenil usage and vision loss. [id number] GILLES COOPER MD [facility] [address] [address] 09/22/2023 12:42:06 09/22/2023 13:28:26 Primary open angle glaucoma 88300900 H40.1132 iop continues to improvecon tinue latanopros t qhs ou, brimonidin e bid ourecheck 5 mo complete, rnfl Calcific b and keratopathy 747874334 H18.429 discussed with patientrec referral to Dr. Grimaldo for additional evaluation and possible tx as recent MR fails to significan tly improve things Proliferat steven retinopathy due to type 2 diabetes mellitus 0110667090 109 E11.3599 continue f/u with TANESHA [id number] GUERRERO TRAYLOR PA-C [place] [address] [place] [address] 10/30/2023 13:38:00 11/05/2023 12:42:41 Multiple benign melanocytic nevi 871676956 D22.5 I78.1 L82.1 L81.4 Benign appearing lesions.Co ntinue to monitor and follow-up with any or changing lesions.Re commend to wear SPF 30+ with zinc or titanium oxide cream daily. Prefers lotions/cr eams over sprays. Rec moisturisi ng with CeraVe or Cetaphil cream after showering Neoplasm o f uncertain behavior of skin 50489116 D48.5 Biopsy recommende d today.- Verbal consent [...] persists or do not resolve. Prurigo nodularis 390626 00 L28.1 Lean to PN.Try not to pick lesions. Discussed treatment with topical steroid.Rx sent for Clobetasol 0.05% cream to use BID for up to two weeks thn limit use to weekends onlyIf areas do not improve, can discuss treatment further Has scheduled appointmen t with Dr. Hunt for further discussion Diabetic foot ulcer 3710 41176 E13.621 Patient sees paying teller for this lesion.Rec continuing care with paying teller .If not improving, please follow-up. [id number] OCTAVIA PICKERING MD [address] [place] [address] 12/29/2023 15:41:57 12/29/2023 16:14:24 Senile purpura 68347071 D69.2 Thinning of the skin due to chronic sun damage. Makes bruising easier as blood vessels are closer the the surface.Re c using OTC CeraVe AM sunscreen on face daily.Rec moisturizi ng with OTC Cetaphil Cream daily.No overt rash today. Actinic damage and Sks noted. 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 She has Mohs scheduled 01/13/2024 .Advised to keep Mohs appointmen t. Seborrheic keratosis 394 207143 L82.1 Benign over growths of skin. Reassuranc e given. Wound of skin 628933237 T14.8XXA R wrist has focal desquamati on that is c/w with healing skin at this point. She does have f/u in Jan and can be reassessed if not resolved. [id number] [place] [address] 01/13/2024 07:37:44 01/16/2024 11:06:31 [id number] GILLES COOPER MD OPHTHALMO [address] [place] [address] 03/23/2024 15:10:10 03/23/2024 17:04:29 Primary open angle glaucoma 01348102 H40.1132 iop continues to improvecon tinue latanopros t qhs ou, brimonidin e bid ouRNFL with thinning os>oddiff with viewing nerve od due to band6 mo iop check, hvf 24-2 Calcific b and keratopathy 448714165 H18.429 pt to consider the chelation Proliferat steven retinopathy due to type 2 diabetes mellitus 3606410364 109 E11.3599 continue f/u with RAKgetting shots ou [id number] GUERRERO TRAYLOR PA-C [address] [address] 07/05/2024 11:20:18 07/05/2024 12:39:35 Multiple benign melanocytic nevi 014075426 D22.5 I78.1 L81.4 L82.1 Benign appearing lesions.Co ntinue to monitor and follow-up with any or changing lesions.Re commend to wear SPF 30+ with zinc or titanium oxide cream daily. Prefers lotions/cr eams over sprays.Fol low up in 6 months for a full skin exam. History of malignant neoplasm of skin 940390034 Z85.828 Scar is clear. Well healed scar. No evidence of recurrence . Prurigo nodularis 715212 00 L28.1 Lean to PN.Try not to pick lesions. Continue Clobetasol 0.05% cream to use BID for up to two weeks thn limit use to weekends onlyIf areas do not improve, can discuss treatment further. Stasis dermatitis 832168 05 I87.2 JAS negativeVe nous stasis. Vascular changes.Re commend to moisturize legs everyday with OTC Cetaphil or Cereve Moisturizi ng Cream.Rx sent for Clobetasol 0.05% ointment to AA BID for up to 2 weeks. Then use on weekends only.Limit applicatio n of topical steroids to 2 weeks.salvage determiner use of topical steroids can cause thinning of the skin. Neoplasm o f uncertain behavior of skin 32724598 D48.5 Biopsy recommende d today. - Verbal [...] Actinic keratosis 007 L57.0 Precancero us lesion(s). Also consider PNDiscusse d biopsy vs [id number] LN2 today.Can leave a white discolorat ion in the areas when LN2 is performed. Follow-up if lesion(s) persists or do not resolve. [id number] GILLES COOPER MD OPHTHALMO LOGY [address] ,[address] [place] [address] 09/23/2024 12:52:56 09/23/2024 15:19:31 Primary open angle glaucoma 98686468 H40.1132 iop stablecont inue latanopros t qhs ou, brimonidin e bid ouhvf today stable ou6 mo complete, rnfl ou Calcific b and keratopathy 466000231 H18.429 suspect changing rx with hx of chelation oumr todaycall with problems Proliferat steven retinopathy due to type 2 diabetes mellitus [id number] 109 E11.3599 continue f/u with RAKgetting shots ouno sig changes on retinal oct today [id number] ALEXYS [place] [address] [place] [address] 09/30/2024 12:19:45 09/30/2024 13:10:32 Eruption [id number] R21 Possible drug reaction.P t has Lupus. she is on Mycophenol ate and plaquenil. Pt states she was put on abx aroun d the same time blisters startedPt to call if blister returns. ext # given to pt We need to see when active. (pt had tried getting in sooner when she was flared) Actinic keratosis 007 L57.0 The nature of the diagnosis was explained. Pre-cancer ous.Will treat with LN2.F/u if treated lesions persist. Health Concerns Section Related Observation LastModified by Organization Detai ls LastModified Time None Recorded Concern Status LastModified by Organization Details LastModified Time None Recorded Advance Directives Directive None Recorded Payers Insurance Date Sequence Insurance Name Policy Number Policy Byrne Covered Member ID Byrne Member ID Guarantor Name 10/02/2021 1 [place] [id number] Michelle Felipe [id number] Michelle Felipe 09/27/2024 1 [facility] (MEDICARE REPLACEMENT/A DVANTAGE - PPO) [id number] Michelle Felipe [id number] Michelle Felipe OBGyn Episode No OBEpisode recorded.
--- OUTSIDE RECORDS SUMMARY | 2024-10-04 10:28 | XMS_ITS | Encounter Summary ---
Author Organization [facility] Address [address] [place] [address] Care Team Providers Care Dinkey Mechanic Name Role Phone Alisa Kunz DO Primary Care Provider [phone] Kodi Bustos DO Unavailable [phone] Sujit Arroila MD Unavailable [phone] Sujit Reyes MD Unavailable [phone] Patricia Yañez LPN Unavailable Unavailab Zee Lr DO Unavailable [phone] Reason for Visit * Reason Onset Date Comments HCN Lab/home Health 09/28/2024 Encounter Details Date Type Department Care Team (Late st Contact Info) Description 09/28/2024 Telephone [facility] Internal Medicine [address], 3[address] [place] [address] Alisa Kunz DO [address] [place] [address] HCN Lab/home Health Social History Tobacco Use Types Packs/Day Years [...] often do you attend chur ch or sikh services? 1 to 4 times per year [...] Recorded Patient Health Questionnaire-2 Score 0 09/08/2024 [facility] of Occupat ional Health - Occupational [...] any time in the past 12 m [facility], were you homeless or [...] any time in the past 12 m [facility], were you homeless or living in a snf (including now)? No 09/17/2024 CAGE ASSESSMENT Answer [...] drink first t anselmo in the morning (EYE-FISCAL ACCOUNTANT) to steady your nerves or to get rid of a hangover? 0 08/14/2024 CAGE Questionnaire Score 0 025 Utilities Answer Date Recorded In the past 12 months has th [employer], [employer], oil, or water [employer] threatened to shut off services in your [...] * Telephone Encounter - Shannen Stephens - 09/29/2024 1:21 PM EDT Left vo on vm * Telephone Encounter - Alisa Kunz DO - 09/28/2024 5:42 PM EDT Okay to give verbal for wound care; 1-2 times a week should suffice. * Telephone Encounter - Julius Be - 09/28/2024 4:14 PM EDT Lab /Home Health Orders Patient: Michelle Felipe Type of Order: the patient has 2nd and third on (L) and (R) and her shoes rubbed sores but they do not hurt / she needs a verbal for wound care / looks like ulcers and blisters already opened up / verbal requested for care they see her once a week right now ( normal saline used meta honey ... Please advise and frequency) Company and Caller Name: [employer] [phone] JUNE VERBAL Fax Number (if outside [place]): None Best contact number: [employer] [phone] Optimal time of day to reach caller: ANYTIME Additional comments/information from caller: None Note: Please do not reply to this message. Follow-up communication and further actions as a result of this message need to be communicated with the patient directly, if the patient is not active onMyChart. If the patient is active on MyChart, they will receive notification of the communication/outcome via [employer]. documented in this encounter Plan of Treatment Upcoming Encounters Date Type Department Care Team (Late st Contact Info) Description 10/07/2024 12:50 PM EDT Office Visit [facility] Otolaryngology [address]rd [place] [address] Chris Pepe MD [address] [place] [address] 10/07/2024 4:00 PM EDT Appointment Cardiac Imaging [address] [place] [address] 10/14/2024 11:00 AM EDT Office [facility] Medicine Specialties [address], [address] [place] [address] Cristian Zimmer MD [address] [place] [address] 10/18/2024 7:40 AM EDT Office Visit [facility] Internal Medicine [address]rd [place] [address] Alisa Kunz DO [address] [place] [address] 10/25/2024 10:00 AM EDT Office Visit [facility] Nephrology, Bone & Mineral Metabolism [address] [facility], [address] [place] [address] Bryon Brandon MD [address] [place] [address] 10/27/2024 1:40 PM EDT [facility] [address] [place] [address] Anne-Marie Kolb L, RESEARCH AND DEVELOPMENT RESEARCHER [address] [place] [address] 02/02/2025 8:40 AM EST Office Visit [facility] Internal Medicine [address], [address] [place] [address] Alisa Kunz DO [address] [place] [address] documented as of this encounter [...] documented as of this encounter Care Teams Dinkey Mechanic Relationship Specialty Start Date End Date Alisa Kunz DO [address] [place] [address] PCP - General Internal Medicine 03/13/21 Kodi Bustos DO [address] [address] Surgeon Cardiothoracic Surgery 11/06/22 Sujit Arriola MD [address] [place] [address] Consulting Physician Pulmonary Disease 11/06/22 Sujit Reyes MD [address] [place] [address] Referring Physician 12/04/22 Patricia Yañez LPN [facility] TCM Nurse 08/25/24 Zee Lazar DO [address] [place], [place] [phone] Resident 09/08/24 documented as of this encounter
--- OUTSIDE RECORDS SUMMARY | 2024-10-04 10:28 | XMS_ITS | Encounter Summary ---
Author Organization [facility] Address [address] [place] [address] Care Team Providers Care Varnishing Unit Operator Name Role Phone Alisa Kunz DO Primary Care Provider [phone] Kodi Bustos DO Unavailable [phone] Sujit Arriola MD Unavailable [phone] Sujit Reyes MD Unavailable [phone] Patricia Yañez LPN Unavailable Unavailab Zee Lr DO Unavailable Reason for Visit * Reason Onset Date Comments HCN Clinical Concern/Question 09/16/2024 Lo w heartrate Encounter Details Date Type Department Care Team (Late st Contact Info) Description 09/16/2024 Telephone [facility] Internal Medicine [address], 3rd [place] [address] Alisa Kunz DO [address] [place] [address] HCN Clinical Concern/Question (Low heartrate) Social History Tobacco Use Types Packs/Day Years [...] any clubs o r organizations such as baptist groups, unions, fraternal or athletic groups, or [...] Recorded Patient Health Questionnaire-2 Score 0 09/08/2024 [facility] - [facility]ational Stress Questionnaire [...] in a fci (including now)? No 05/27/2024 Humiliation, Afraid, Rape, [...] living in a fci (including now)? No 09/17/2024 CAGE ASSESSMENT Answer [...] drink first t anselmo in the morning (EYE-MINI SHIFTER) to steady your nerves or to get rid of a hangover? 0 08/14/2024 CAGE Questionnaire Score 0 025 Utilities Answer Date Recorded In the past 12 months has th [employer], gas, oil, or water [employer] threatened to shut off services in your [...] * Telephone Encounter - Shannen Stephens - 09/17/2024 1:18 PM EDT Sent in refill * Telephone Encounter - Alisa Kunz DO - 09/17/2024 1:04 PM EDT Okay to refill Valtrex- looks like vitals resolved to normal thankfully. * Telephone Encounter - Pinky Hernadez - 09/16/2024 3:05 PM EDT Patient Phone Message Reason for Call:heartrate 48 today with dizziness and lightheadedness. Also, asking about getting more Valtrex. Was given just 5pills yesterday at hosp. Request verbal to recert services. Please call Best contact number and optimal time of day to reach caller:[phone] Note: Please do not reply to this message. Follow-up communication and further actions as a result of this message need to be communicated with the patient directly, if the patient is not active onMyChart. If the patient is active on MyChart, they will receive notification of the communication/outcome via [employer]. documented in this encounter Plan of Treatment Upcoming Encounters Date Type Department Care Team (Late st Contact Info) Description 10/07/2024 12:50 PM EDT Office Visit [facility] Otolaryngology [address], [address]rd [place] [address] Chris Pepe MD [address] [place] [address] 10/07/2024 4:00 PM EDT Appointment Cardiac Imaging [address] [place] [address] 10/14/2024 11:00 AM EDT [facility] Medicine Specialties [address] [place] [address] Cristian Zimmer MD [address] [place] [address] 10/18/2024 7:40 AM EDT Office Visit [facility] Internal Medicine [address], 3rd [place] [address] Ze, Alisa L, DO [address] [place] [address] 10/25/2024 10:00 AM EDT Office Visit [facility] Nephrology, Bone & Mineral Metabolism [address] [facility], [address] [place] [address] Bryon Brandon MD [address] [place] [address] 10/27/2024 1:40 PM EDT Office Visit [facility] Endocrinology [address] [place] [address] Anne-Marie Kolb, SEED POTATO CUTTER [address] [facility] [address] [place] [address] 02/02/2025 8:40 AM EST Office Visit [facility] Internal Medicine [address], [address] [place] [address] Alisa Kunz, [address] [facility] [address] [place] [address] documented as of this encounter [...] documented as of this encounter Care Teams Varnishing Unit Operator Relationship Specialty Start Date End Date Alisa Kunz, [address] [place] [address] PCP - General Internal Medicine 03/13/21 Kodi Bustos, DO [address] [facility] [address] [place] [address] Surgeon Cardiothoracic Surgery 11/06/22 Sujit Arriola MD [address] [place] [address] Consulting Physician Pulmonary Disease 11/06/22 Sujit Reyes MD [address] [place] [address] Referring Physician 12/04/22 Patricia Yañez, [facility] TCM Nurse 08/25/24 Zee Lazar DO [address] [place] [address] Resident 09/08/24 documented as of this encounter
--- OUTSIDE RECORDS SUMMARY | 2024-10-04 10:28 | XMS_ITS | Encounter Summary ---
Author Organization [facility] Address [address] [place] [address] Care Team Providers Care Provider Relations Rep Name Role Phone Alisa Kunz DO Primary Care Provider Kodi Bustos DO Unavailable [phone] Sujit Arriola MD Unavailable [phone] Sujit Reyes MD Unavailable [phone] Patricia Yañez LPN Unavailable Unavailab Zee Lr DO Unavailable Reason for Visit * Reason Onset Date Comments HCN - Patient Message 09/23/2024 Encounter Details Date Type Department Care Team (Late st Contact Info) Description 09/23/2024 Telephone [facility] Internal Medicine [address], [address]rd [place] [address] Alisa Kunz DO [address] [place] [address] HCN - Patient Message Social History Tobacco Use Types Packs/Day Years [...] How often do you attend chur or presybeterian services? 1 to 4 times per year 08/30/2022 Do you belong to any clubs o r organizations such as yarsani groups, unions, fraternal or athletic groups, or [...] Recorded Patient Health Questionnaire-2 Score 0 09/08/2024 [facility] of Occupat ional [...] a nursing home (including now)? No 05/27/2024 Humiliation, Afraid, [...] in a nursing home (including now)? No 09/17/2024 CAGE ASSESSMENT [...] drink first t anselmo in the morning (EYE-LOCOMOTIVE FIRER) to steady your nerves or to get rid of a hangover? 0 08/14/2024 CAGE Questionnaire Score 0 025 Utilities Answer Date Recorded In the past 12 months has th e [employer], gas, oil, or water [employer] threatened to shut off services in your [...] * Telephone Encounter - Shannen Stephens - 09/23/2024 11:29 AM EDT Left vm advising of vo * Telephone Encounter - Naty Sykes - 09/23/2024 10:54 AM EDT Patient Phone Message Reason for Call:She needs verbal order for PT for 1 week for 8 weeks Best contact number and optimal time of day to reach caller: [phone] Note: Please do not reply to this [...] Description 10/07/2024 12:50 PM EDT Office Visit [facility] Otolaryngology [address]rd [place] [address] Chris Pepe MD [address] [facility] [address] [place] [address] 10/07/2024 4:00 PM EDT Appointment Cardiac Imaging [address] [place] [address] 10/14/2024 11:00 AM EDT Office Visit [facility] Medicine Specialties [address]nd [place] [address] Cristian Zimmer MD [address] [facility] [address] [place] [address] 10/18/2024 7:40 AM EDT Office Visit [facility] Internal Medicine [address] 3rd [place] [address] Alisa Kunz DO [address] [place] [address] 10/25/2024 10:00 AM EDT Office Visit [facility] Nephrology, Bone & Mineral Metabolism [address] [facility], [address] [place] [address] Bryon Brandon MD [address] [place] [address] 10/27/2024 1:40 PM EDT Office Visit [facility] Endocrinology [address] [place] [address] Anne-Marie Kolb, BUS MONITOR [address] [place] [address] 02/02/2025 8:40 AM EST Office Visit [facility] Internal Medicine [address], [address]rd [place] [address] Alisa Kunz DO [address] [place] [address] documented as of this encounter [...] documented as of this encounter Care Teams Provider Relations Rep Relationship Specialty Start Date End Date Alisa Kunz DO [address] [place] [address] PCP - General Internal Medicine 03/13/21 Kodi Bustos DO [address] [place] [address] Surgeon Cardiothoracic Surgery 11/06/22 Sujit Arriola MD [address] [place] [address] Consulting Physician Pulmonary Disease 11/06/22 Sujit Reyes MD [address] [place] [address] Referring Physician 12/04/22 Patricia Yañez LPN [facility] TCM Nurse 08/25/24 Zee Lazar DO [address] [place] [address] Resident 09/08/24 documented as of this encounter
--- OUTSIDE RECORDS SUMMARY | 2024-10-04 10:28 | XMS_ITS | Encounter Summary ---
Author Organization [facility] Address [address] [place] [address] Care Team Providers Care Data Entry Machine Operator Name Role Phone Alisa Kunz DO Primary Care Provider [phone] Kodi Bustos DO Unavailable [phone] Sujit Arriola MD Unavailable [phone] Sujit Reyes MD Unavailable [phone] Patricia Yañez LPN Unavailable Unavailab Zee Lr DO Unavailable [phone] Encounter Details Date Type Department Care Team (Late st Contact Info) Description 09/28/2024 Telephone [facility] Diabetes Education [address] [place] [address] Anne-Marie Kolb L, ANALYTICS CONSULTANT [address] [facility] [address] [place] [address] Social History Tobacco Use Types [...] often do you attend chur ch or lutheran services? 1 to 4 times per year [...] Recorded Patient Health Questionnaire-2 Score 0 09/08/2024 [facility] of Occupat ional Health - Occupational Stress [...] drink first t anselmo in the morning (EYE-COVER SEAMER) to steady your nerves or to get rid of a hangover? 0 08/14/2024 CAGE Questionnaire Score 0 025 Utilities Answer Date Recorded In the past 12 months has th e [employer], gas, oil, or water company threatened to [...] * Telephone Encounter - Barbra Stout - 09/29/2024 10:59 AM EDT Returned pts call. She states dropping at night since restarting her 6u of toujeo. Bs of past three nights with lows and then FSBS numbers [phone] Pt states she did confirm cgm with finger stick Instructed pt to decrease night time toujeo to 4 units. Monitor and all call back with update or further instruction. documented in this encounter Plan of Treatment Upcoming Encounters Date Type Department Care Team (Late st Contact Info) Description 10/07/2024 12:50 PM EDT Office Visit [facility] Otolaryngology [address] [place] [address] Chris Pepe MD [address] [place] [address] 10/07/2024 4:00 PM EDT Appointment Cardiac Imaging [address] [place] [address] 10/14/2024 11:00 AM EDT Office Visit [facility] Medicine Specialties [address] [place] [address] Cristian Zimmer MD [address] [place] [address] 10/18/2024 7:40 AM EDT Office Visit [facility] Internal Medicine [address], [address] [place] [address] Alisa Kunz L, DO [address] [place] [address] 10/25/2024 10:00 AM EDT Office Visit [facility] Nephrology, Bone & Mineral Metabolism [address] [facility], [address] [place] [address] Bryon Brandon MD [address] [place] [address] 10/27/2024 1:40 PM EDT Office Visit [facility] Endocrinology [address] [place] [address] Anne-Marie Kolb L, ANALYTICS CONSULTANT [address] [place] [address] 02/02/2025 8:40 AM EST Office Visit [facility] Internal Medicine [address], [address] [place] [address] Alisa Kunz DO [address] [place] [address] documented as of this encounter [...] as of this encounter Care Teams Data Entry Machine Operator Relationship Specialty Start Date End Date Alisa Kunz DO [address] [place] [address] PCP - General Internal Medicine 03/13/21 Kodi Bustos DO [address] [address] Surgeon Cardiothoracic Surgery 11/06/22 Sujit Arriola MD [address] [place] [address] Consulting Physician Pulmonary Disease 11/06/22 Sujit Reyes MD [address] [place] [address] Referring Physician 12/04/22 Patricia Yañez LPN [facility] TCM Nurse 08/25/24 Zee Lazar DO [address] [place] [address] Resident 09/08/24 documented as of this encounter
--- OUTSIDE RECORDS SUMMARY | 2024-10-04 10:28 | XMS_ITS | Encounter Summary ---
Author Organization [facility] Address [address] [place] [address] Care Team Providers Care Undercover Cop Name Role Phone Alisa Kunz DO Primary Care Provider [phone] Kodi Bustos DO Unavailable [phone] Sujit Arriola MD Unavailable [phone] Sujit Reyes MD Unavailable [phone] Patricia Yañez LPN Unavailable Unavailab Zee Lr DO Unavailable [phone] Encounter Details Date Type Department Care Team (Late st Contact Info) Description 09/17/2024 Orders Only [facility] Internal Medicine [address]rd [place] [address] Alisa Kunz DO [address] [place] [address] Social History Tobacco Use Types [...] often do you attend chur ch or restorationism services? 1 to 4 times per year 08/30/2022 Do you belong to any clubs o r organizations such as jain groups, unions, fraternal or athletic groups, or [...] Recorded Patient Health Questionnaire-2 Score 0 09/08/2024 [facility] of Occupat ional Health - Occupational Stress [...] living in a prison (including now)? No 09/17/2024 CAGE ASSESSMENT Answer [...] drink first t anselmo in the morning (EYE-SENIOR IT SECURITY ANALYST) to steady your nerves or to [...] Description 10/07/2024 12:50 PM EDT Office Visit [facility] Otolaryngology [address]rd [place] [address] Chris Pepe MD [address] [place] [address] 10/07/2024 4:00 PM EDT Appointment Cardiac Imaging [address] [place] [address] 10/14/2024 11:00 AM EDT Office Visit [facility] Medicine Specialties [address]nd [place] [address] Cristian Zimmer MD [address] [place] [address] 10/18/2024 7:40 AM EDT Office Visit [facility] Internal Medicine [address] [place] [address] Alisa Kunz, DO [address] [place] [address] 10/25/2024 10:00 AM EDT Office Visit [facility] Nephrology, Bone & Mineral Metabolism [address] [facility], [address] [place] [address] Bryon Brandon MD [address] [place] [address] 10/27/2024 1:40 PM EDT Office Visit [facility] Endocrinology [address] [place] [address] Anne-Marie Kolb L, MECHANIC DRIVER [address] [place] [address] 02/02/2025 8:40 AM EST Office Visit [facility] Internal Medicine [address] [place] [address] Alisa Kunz, DO [address] [place] [address] documented as of this encounter [...] documented as of this encounter Care Teams Undercover Cop Relationship Specialty Start Date End Date Alisa Kunz DO [address] [place] [address] PCP - General Internal Medicine 03/13/21 Kodi Bustos, DO [address] [address] Surgeon Cardiothoracic Surgery 11/06/22 Sujit Arriola MD [address] [place] [address] Consulting Physician Pulmonary Disease 11/06/22 Sujit Reyes MD [address] [place] [address] Referring Physician 12/04/22 Patricia Yañez LPN [facility] TCM Nurse 08/25/24 Zee Lazar DO [address] [place] [address] Resident 09/08/24 documented as of this encounter
--- OUTSIDE RECORDS SUMMARY | 2024-10-04 10:28 | XMS_ITS | Encounter Summary ---
Author Organization [facility] Address [address] [place] [address] Care Team Providers Care Wet Cotton Feeder Name Role Phone Alisa Kunz DO Primary Care Provider Kodi Bustos DO Unavailable [phone] Sujit Arriola MD Unavailable [phone] Sujit Reyes MD Unavailable [phone] Patricia Yañez LPN Unavailable Unavailab Zee Lr DO Unavailable [phone] Encounter Details Date Type Department Care Team (Late st Contact Info) Description 09/28/2024 Results Follow-Up [facility] [address] [place] [address] Ashley, June R, DIRT SHOVELER [address] [address] Social History Tobacco Use Types Packs/Day [...] Recorded Patient Health Questionnaire-2 Score 0 09/08/2024 [facility] [place] of Occupat ional Health - Occupational Stress [...] drink first t anselmo in the morning (EYE-WEB SIZER) to steady your nerves or to get rid of a hangover? 0 08/14/2024 CAGE Questionnaire Score 0 025 Utilities Answer Date Recorded In the past 12 months has th [employer], gas, oil, or water [employer] threatened to shut off services in your [...] Telephone Encounter - Mary Costello RN - 09/28/2024 12:49 PM EDT Called pt and updated her on her lab results and DIRT SHOVELER's recommendations. Pt verbalized understanding, denies questions, concerns or further needs at this time. * Telephone Encounter - Mary Costello RN - 09/28/2024 12:49 PM EDT ----- Message from Dinah Ramirez APRN sent at 09/28/2024 11:04 AM EDT ----- Please call Ms. Felipe and let her know her labs are consistent with previous labs. Kidney functionis good. Sodium is a little on the low side, but this appears chronic. She should continue with her fluid restriction diet (2000ml per previous notes). Additionally, her INR is 1.6, please have her share this with her coumadin clinic. Thanks! ----- Message ----- From: Lab, Background User Sent: 09/27/2024 5:43 PM EDT To: Dinah Ramirez APRN documented in this encounter Plan of Treatment Upcoming Encounters Date Type Department Care Team (Late st Contact Info) Description 10/07/2024 12:50 PM EDT Office Visit [facility] Otolaryngology [address], [address]rd [place] [address] Chris Pepe MD [address] [place] [address] 10/07/2024 4:00 PM EDT Appointment Cardiac Imaging [address] [place] [address] 10/14/2024 11:00 AM EDT Office Visit [facility] Medicine Specialties [address], [address] [place] [address] Cristian Zimmer MD [address] [place] [address] 10/18/2024 7:40 AM EDT Office Visit [facility] Internal Medicine [address], [address] [place] [address] Alisa Kunz DO [address] [place] [address] 10/25/2024 10:00 AM EDT Office Visit [facility] Nephrology, Bone & Mineral Metabolism [address] [facility], [address] [place] [address] Bryon Brandon MD [address] [place] [address] 10/27/2024 1:40 PM EDT Office Visit [facility] Endocrinology [address] [place] [address] Anne-Marie Kolb L, DIRT SHOVELER [address] [place] [address] 02/02/2025 8:40 AM EST Office Visit [facility] Internal Medicine [address] [place] [address] Alisa Kunz DO [address] [place] [address] documented as of this encounter [...] documented as of this encounter Care Teams Wet Cotton Feeder Relationship Specialty Start Date End Date Alisa Kunz DO [address] [place] [address] PCP - General Internal Medicine 03/13/21 Kodi Bustos DO [address] [facility] [address] [place] [address] Surgeon Cardiothoracic Surgery 11/06/22 Sujit Arriola MD [address] [place] [address] Consulting Physician Pulmonary Disease 11/06/22 Sujit Reyes MD [address] [facility] [address] [place] [address] Referring Physician 12/04/22 Patricia Yañez LPN [facility] TCM Nurse 08/25/24 Zee Lazar DO [address] [place] [address] Resident 09/08/24 documented as of this encounter
--- OUTSIDE RECORDS SUMMARY | 2024-10-04 10:28 | XMS_ITS | Encounter Summary ---
Author Organization [facility] Address [address] [place] [address] Care Team Providers Care Seafood And Service Meat Manager Name Role Phone Alisa Kunz DO Primary Care Provider [phone] Kodi Bustso DO Unavailable [phone] Sujit Arriola MD Unavailable [phone] Sujit Reyes MD Unavailable [phone] Patricia Yañez LPN Unavailable Unavailab Zee Lr DO Unavailable [phone] Encounter Details Date Type Department Care Team (Latest Contact Info) Description 10/02/2024 Travel Social History Tobacco Use Types Packs/Day [...] often do you attend chur ch or rastafarian services? 1 to 4 times per year [...] Recorded Patient Health Questionnaire-2 Score 0 09/08/2024 [facility] of Occupat ional Health - [...] any time in the past 12 m [facility], were you homeless or living in [...] any time in the past 12 m [facility], were you homeless or living in a residential (including now)? No 09/17/2024 CAGE ASSESSMENT Answer [...] drink first t anselmo in the morning (EYE-[place]AN[place] MACHINE OPERATOR) to steady your nerves or [...] Description 10/07/2024 12:50 PM EDT Office Visit [facility] Otolaryngology [address] 3rd [place] [address] Chris Pepe MD [address] [facility] [address] [place] [address] 10/07/2024 4:00 PM EDT Appointment Cardiac Imaging [address] [place] [address] 10/14/2024 11:00 AM EDT Office Visit [facility] Medicine Specialties [address]nd [place] [address] Cristian Zimmer MD [address] [place] [address] 10/18/2024 7:40 AM EDT Office Visit [facility] Internal Medicine [address], 3[address] [place] [address] Alisa Kunz DO [address] [facility] [address] [place] [address] 10/25/2024 10:00 AM EDT Office Visit [facility] Nephrology, Bone & Mineral Metabolism [address] [facility], [address] [place] [address] Bryon Brandon MD [address] [place] [address] 10/27/2024 1:40 PM EDT Office Visit [facility] Endocrinology [address] [place] [address] Anne-Marie Kolb, PRESSURE TESTING TECHNICIAN [address] [facility] [address] [place] [address] 02/02/2025 8:40 AM EST Office Visit [facility] Internal Medicine [address], 3rd [place] [address] Alisa Kunz DO [address] [address] documented as of this encounter Visit [...] documented as of this encounter Care Teams Seafood And Service Meat Manager Relationship Specialty Start Date End Date Alisa Kunz DO [address] [facility] [address] [place] [address] PCP - General Internal Medicine 03/13/21 Kodi Bustos DO [address] [address] Surgeon Cardiothoracic Surgery 11/06/22 Sujit Arriola MD [address] [place] [address] Consulting Physician Pulmonary Disease 11/06/22 Sujit Reyes MD [address] [place] [address] Referring Physician 12/04/22 Patricia Yañez LPN [facility] TCM Nurse 08/25/24 Zee Lazar DO [address] [place] [address] Resident 09/08/24 documented as of this encounter
--- OUTSIDE RECORDS SUMMARY | 2024-10-04 10:28 | XMS_ITS | Encounter Summary ---
Author Organization [facility] Address [address] [place] [address] Care Team Providers Care Jewelry Facer Name Role Phone Alisa Kunz DO Primary Care Provider [phone] Kodi Bustos DO Unavailable [phone] Sujit Arriola MD Unavailable [phone] Sujit Reyes MD Unavailable [phone] Patricia Yañez CAFETERIA COUNTER ATTENDANT Unavailable Unavailab Zee Lr DO Unavailable [phone] Encounter Details Date Type Department Care Team (Late st Contact Info) Description 09/20/2024 Telephone [facility] Endocrinology [address] [place] [address] Anne-Marie Kolb, SPINNER HYDRAULIC [address] [facility] [address] [place] [address] Social History Tobacco Use Types [...] Recorded Patient Health Questionnaire-2 Score 0 09/08/2024 [facility] [place] of Occupat ional Health - Occupational Stress [...] any time in the past 12 m [facility], were you homeless or [...] any time in the past 12 m [facility], were you homeless or [...] drink first t anselmo in the morning (EYE-CLAM SHOVEL OPERATOR) to steady your nerves or to get rid of a hangover? 0 08/14/2024 CAGE Questionnaire Score 0 025 Utilities Answer Date Recorded In the past 12 months has th e [employer], gas, oil, or water company threatened to [...] * Telephone Encounter - Barbra Stout - 09/20/2024 4:40 PM EDT Called pt back. Pt states since getting dc from hospital her bs have been running higher as listed below Friday fsbs 264 Friday fsbs 590, 12:30p 507, 4:30p 299, 7:30p 243, 8p 159 Friday Fsbs over 400, 1:30p 270, 4p 129, 8p 292 Friday fsbs over 400. Pt stated she has not been taking her night time insulin since dc. Instead only taking 6u in am andhumalog plus correction, Instructed pt to add back in her night time insulin. 6u of lantus BID. Keep humalog the same and call back with an update or further instruction. Pt verbalized understanding. * Telephone Encounter - CARRIE VALENTINE - 09/20/2024 3:01 PM EDT Pt is having issues getting her BG regulated, they have been running 400 and higher. documented in this encounter Plan of Treatment Upcoming Encounters Date Type Department Care Team (Late st Contact Info) Description 10/07/2024 12:50 PM EDT Office Visit [facility] Otolaryngology [address], 3rd [place] [address] Chris Pepe MD [address] [place] [address] 10/07/2024 4:00 PM EDT Appointment Cardiac Imaging [address] [place] [address] 10/14/2024 11:00 AM EDT Office Visit [facility] Medicine Specialties [address], [address] [place] [address] Cristian Zimmer MD [address] [place] [address] 10/18/2024 7:40 AM EDT Office Visit [facility] Internal Medicine [address], 3rd [place] [address] Alisa Kunz DO [address] [place] [address] 10/25/2024 10:00 AM EDT Office Visit [facility] Nephrology, Bone & Mineral Metabolism [address] [facility], [address] [place] [address] Bryon Brandon MD [address] [place] [address] 10/27/2024 1:40 PM EDT Office Visit [facility] Endocrinology [address] [place] [address] Anne-Marie Kolb L, SPINNER HYDRAULIC [address] [place] [address] 02/02/2025 8:40 AM EST Office Visit [facility] Internal Medicine [address], [address] [place] [address] Alisa Kunz DO [address] [place] [address] documented as of this encounter [...] documented as of this encounter Care Teams Jewelry Facer Relationship Specialty Start Date End Date Alisa Kunz DO [address] [place] [address] PCP - General Internal Medicine 03/13/21 Kodi Bustos DO [address] [address] Surgeon Cardiothoracic Surgery 11/06/22 Sujit Arriola MD [address] [place] [address] Consulting Physician Pulmonary Disease 11/06/22 Sujit Reyes MD [address] [facility] [address] [place] [address] Referring Physician 12/04/22 Patricia Yañez LPN [facility] TCM Nurse 08/25/24 Zee Lazar DO [address] [place] [address] Resident 09/08/24 documented as of this encounter
--- OUTSIDE RECORDS SUMMARY | 2024-10-04 10:28 | XMS_ITS | Encounter Summary ---
Author Organization [facility] Address [address] [place] [address] Care Team Providers Care Core Shaper Top Name Role Phone Alisa Kunz DO Primary Care Provider [phone] Kodi Bustos DO Unavailable [phone] Sujit Arriola MD Unavailable [phone] Sujit Reyes MD Unavailable [phone] Patricia Yañez LPN Unavailable Unavailab Zee Lr DO Unavailable [phone] Reason for Visit * Reason Comments Follow-up Encounter Details Date Type Department Care Team (Late st Contact Info) Description 09/22/2024 Patient Outreach [facility] [address], [address] [place] [address] Patricia Yañez LPN [facility] Follow-up Social History Tobacco Use Types Packs/Day [...] How often do you attend [facility] or druze services? 1 to 4 [...] Health Questionnaire-2 Score 0 09/08/2024 [facility] [place] of Occupat ional Health - Occupational Stress [...] time in the past 12 m [facility], were you homeless or living [...] time in the past 12 m [facility], were you homeless or living [...] drink first t anselmo in the morning (EYE-DIALYSIS TECHNICIAN) to steady your nerves or to [...] Progress Notes - Patricia Yañez LPN - 09/22/2024 3:34 PM EDT 09/22/2024 [facility] Follow-up Call Patient reached: Y Outcome: Called patient for follow up call. Patient states that she is still doing good from most recent hospitalization. Patient states that Home Health is still coming to see her when she does not have other appointments. Patient states that she is still using her home oxygen and that she has been using her wheelchair to go to appointments. Patient states that she does have a cardioversion scheduled for 09/24/2024 at [facility]. Patient states that she has not been checking her blood pressure like she should be, but she will check it if she feels dizzy. Advised patient to take blood pressure log to ELIZABETH appointment on 09/27/2024. Patient verbalized understanding. Patient did not voice any other questions or concerns at time of follow up call. Action: Advised patient to take blood pressure log to ELIZABETH appointment on 09/27/2024. Patient verbalized understanding. documented in this encounter Plan of Treatment Upcoming Encounters Date Type Department Care Team (Late st Contact Info) Description 10/07/2024 12:50 PM EDT Office Visit [facility] Otolaryngology [address]rd [place] [address] Chris Pepe MD [address] [place] [address] 10/07/2024 4:00 PM EDT Appointment Cardiac Imaging [address] [place] [address] 10/14/2024 11:00 AM EDT Office Visit [facility] Medicine Specialties [address] 2nd [place] [address] Cristian Zimmer MD [address] [facility] [address] [place] [address] 10/18/2024 7:40 AM EDT Office Visit [facility] Internal Medicine [address] [place] [address] Alisa Kunz, [address] [place] [address] 10/25/2024 10:00 AM EDT Office Visit [facility] [place] Nephrology, Bone & Mineral Metabolism [address] [facility], [address] [place] [address] Bryon Brandon MD [address] [place] [address] 10/27/2024 1:40 PM EDT Office Visit [facility] Endocrinology [address] [place] [address] Anne-Marie Kolb, BUFFING WHEEL OPERATOR [address] [place] [address] 02/02/2025 8:40 AM EST Office Visit [facility] Internal Medicine [address] [place] [address] Alisa Kunz DO [address] [place] [address] documented as of this encounter [...] documented as of this encounter Care Teams Core Shaper Top Relationship Specialty Start Date End Date Alisa Kunz DO [address] [facility] [address] [place] [address] PCP - General Internal Medicine 03/13/21 Kodi Bustos DO [address] [place] [address] Surgeon Cardiothoracic Surgery 11/06/22 Sujit Arriola MD [address] [place] [address] Consulting Physician Pulmonary Disease 11/06/22 Sujit Reyes MD [address] [place] [address] Referring Physician 12/04/22 Patricia Yañez LPN [facility] TCM Nurse 08/25/24 Zee Lazar DO [address] [place] [address] Resident 09/08/24 documented as of this encounter
--- OUTSIDE RECORDS SUMMARY | 2024-10-04 10:28 | XMS_ITS | Encounter Summary ---
Author Organization [facility] Address [address] [place] [address] Care Team Providers Care Replenishment Buyer Name Role Phone Alisa Kunz DO Primary Care Provider [phone] Kodi Bustos DO Unavailable [phone] Sujit Arriola MD Unavailable [phone] Sujit Reyes MD Unavailable [phone] Patricia Yañez LPN Unavailable Unavailab Zee Lr DO Unavailable [phone] Encounter Details Date Type Department Care Team (Latest Contact Info) Description 09/27/2024 Travel Social History Tobacco Use Types Packs/Day [...] often do you attend chur ch or yazidism services? 1 to 4 times [...] Recorded Patient Health Questionnaire-2 Score 0 09/08/2024 [facility] of Occupat ional Health - Occupational [...] any time in the past 12 m [facility], were you homeless or living in a [...] any time in the past 12 m [facility], were you homeless or living in a [...] drink first t anselmo in the morning (EYE-PHOTO STYLIST) to steady your nerves or to get [...] Description 10/07/2024 12:50 PM EDT Office Visit [facility] Otolaryngology [address] [place] [address] Chris Pepe MD [address] [facility] [address] [place] [address] 10/07/2024 4:00 PM EDT Appointment Cardiac Imaging [address] [place] [address] 10/14/2024 11:00 AM EDT Office Visit [facility] Medicine Specialties [address] [place] [address] Cristian Zimmer MD [address] [place] [address] 10/18/2024 7:40 AM EDT Office Visit [facility] Internal Medicine [address] [place] [address] Alisa Kunz DO [address] [facility] [address] [place] [address] 10/25/2024 10:00 AM EDT Office Visit [facility] Nephrology, Bone & Mineral Metabolism [address] [facility], [address] [place] [address] Bryon Brandon MD [address] [place] [address] 10/27/2024 1:40 PM EDT Office Visit [facility] Endocrinology [address] [place] [address] Anne-Marie Kolb, BILINGUAL KINDERGARTEN TEACHER [address] [facility] [address] [place] [address] 02/02/2025 8:40 AM EST Office Visit [facility] Internal Medicine [address] [place] [address] Alisa Kunz DO [address] [address] documented as of this encounter [...] documented as of this encounter Care Teams Replenishment Buyer Relationship Specialty Start Date End Date Alisa Kunz DO [address] [facility] [address] [place] [address] PCP - General Internal Medicine 03/13/21 Kodi Bustos DO [address] [address] Surgeon Cardiothoracic Surgery 11/06/22 Sujit Arriola MD [address] [place] [address] Consulting Physician Pulmonary Disease 11/06/22 Sujit Reyes MD [address] [place] [address] Referring Physician 12/04/22 Patricia Yañez LPN [facility] TCM Nurse 08/25/24 Zee Lazar DO [address] [place] [id number] Resident 09/08/24 documented as of this encounter
--- OUTSIDE RECORDS SUMMARY | 2024-10-04 10:29 | XMS_ITS ---
Author Organization [facility] Address [address] [place] [address] Care Team Providers Care Resident Care Supervisor Name Role Phone Ze Alisa Wild DO Primary Care Provider [phone] Kodi Bustos DO Unavailable [phone] Sujit Arriola MD Unavailable [phone] Sujit Reyes MD Unavailable [phone] Patricia Yañez LPN Unavailable Unavailab Zee Lr DO Unavailable [phone] LINK Program Status:Closed (Closed) Start date:08/16/2024 Enrollment reason:Identified using hospital discharge data End date:08/16/2024 Close reason:Patient Declined Continued Care and Services Coordination
--- OUTSIDE RECORDS SUMMARY | 2024-10-04 10:29 | XMS_ITS | Encounter Summary ---
Author Organization [facility] Address [address] [place] [address] Care Team Providers Care Log Manager Name Role Phone Alisa Kunz Primary Care Provider [phone] Kodi Bustso DO Unavailable [phone] Sujit Arriola MD Unavailable [phone] Sujit Reyes MD Unavailable [phone] Zully Caldwell LPN Unavailable Unavailable Encounter [...] often do you attend chur ch or jew services? 1 to 4 times [...] Recorded Patient Health Questionnaire-2 Score 0 08/04/2024 [facility] of Occupat ional Health - Occupational Stress [...] time in the past 12 m [facility], were you homeless or living in a [...] time in the past 12 m [facility], were you homeless or living in a snf (including now)? No 08/15/2024 CAGE ASSESSMENT Answer [...] drink first t anselmo in the morning (EYE-STUD SETTER) to steady your nerves or to get rid of a hangover? 0 08/14/2024 CAGE Questionnaire Score 0 025 Utilities Answer Date Recorded In the past 12 months has th e [employer], gas, oil, or water [employer] threatened to shut off services in your [...] Month) No 025 3:38 PM EDT Odilia Sanchez RN 2. Non-Specific Active Suici dillon Thoughts (Past 1 Month) No 08/14/2024 3:38 PM EDT Odilia Sanchez, RN 6. Suicidal Behavior (Lifetime) No 3:38 PM EDT Odilia Sanchez RN documented as of this encounter Plan of Treatment Upcoming Encounters Date Type Department Care Team (Late st Contact Info) Description 10/07/2024 12:50 PM EDT Office Visit [facility] Otol[facility]ology [address] [place] [address] Chris Pepe MD [address] [place] [address] 10/07/2024 4:00 PM EDT Appointment Cardiac Imaging [address] [place] [address] 10/14/2024 11:00 AM EDT Office Visit [facility] Medicine Specialties [address], [address] [place] [address] Cristian Zimmer MD [address] [place] [address] 10/18/2024 7:40 AM EDT Office Visit [facility] Internal Medicine [address], 3rd [place] [address] Alisa Kunz, DO [address] [facility] [address] [place] [address] 10/25/2024 10:00 AM EDT Office Visit [facility] Nephrology, Bone & Mineral Metabolism [address] [facility], [address] [place] [address] Bryon Brandon MD [address] [place] [address] 10/27/2024 1:40 PM EDT Office Visit [facility] Endocrinology [address] [place] [address] Anne-Marie Kolb L, PRESIDENT AND CEO [address] [facility] [address] [place] [address] 02/02/2025 8:40 AM EST Office Visit [facility] Internal Medicine [address], [address]rd [place] [address] Alisa Kunz, DO [address] [place] [address] documented as of this encounter Visit Diagnoses Not on filedocumented in this encounter Additional Health Concerns Assessment Noted Time PHQ-9 Depression Total Score: 8 05/14/20 25 9:23 AM EDT A fall risk assessment has been complete d for the patient 08/04/2024 10:41 AM EDT A Body Mass Index follow-up plan has been documented for the patient 08/24/2024 2:26 PM EDT documented as of this encounter Care Teams Log Manager Relationship Specialty Start Date End Date Alisa Kunz DO [address] [place] [address] PCP - General Internal Medicine 03/13/21 Kodi Bustos DO [address] [address] Surgeon Cardiothoracic Surgery 11/06/22 Sujit Arriola MD [address] [place] [address] Consulting Physician Pulmonary Disease 11/06/22 Sujit Reyes MD [address] [place] [address] Referring Physician 12/04/22 Zully Caldwell LPN VALUE-BASED [place] [address] TCM Nurse 07/16/24 08/15/24 documented as of this encounter
--- OUTSIDE RECORDS SUMMARY | 2024-10-04 10:29 | XMS_ITS | Encounter Summary ---
Author Organization [facility] Address [address] [place] [address] Care Team Providers Care Facility Worker Name Role Phone Alisa Kunz Primary Care Provider [phone] Reason for Visit * Reason Comments Med Refill Encounter Details Date Type Department Care Team (Late st Contact Info) Description 10/14/2023 Refill [facility] CARDIOLOGY [address] [place] [address] Sujit Reyes MD [address] [facility] [address] [place] [address] Med Refill Social History Tobacco Use Types Packs/Day Years Used Date Smoking Tobacco: Never Passive Smoke Exposure: Never Smokeless Tobacco: Never Alcohol Use Standard Drinks/Week Comments Yes 1 (1 standard drink = 0.6 oz pure alcohol) 1-2 beer at night, occassional rum Comments No Sex and Gender Information Value Date Recorded Sex Assigned at Female 12/30/2022 3:37 PM EDT Legal Sex Female 11:33 AM EDT Gender Identity Female 12/30/2022 3:37 PM EDT Sexual Orientation Not on file documented as of this encounter Plan of Treatment Upcoming Encounters Date Type Department Care Team (Late st Contact Info) Description 12/02/2024 3:30 PM EDT Office Visit [facility] CARDIOLOGY [address] [place] [address] [address] Sujit Reyes MD [address] [facility] [address] [place] [address] 01/19/2025 1:45 PM EST Office Visit [facility] CARDIOLOGY [address] [facility] [address] [place] [address] Naveen Velasquez MD [address] [facility] [address] [place], [place] [id number] documented as of this encounter Visit Diagnoses Not on filedocumented in this encounter Care Teams Facility Worker Relationship Specialty Start Date End Date Alisa Kunz DO [address] [place], [place] [id number] PCP - General Internal Medicine 04/26/21 documented as of this encounter
--- OUTSIDE RECORDS SUMMARY | 2024-10-04 10:29 | XMS_ITS | Encounter Summary ---
Author Organization [facility] Address [address] [place] [address] Care Team Providers Care Clinical Laboratory Aide Name Role Phone Alisa Kunz Primary Care Provider [phone] Kodi Bustos DO Unavailable [phone] Sujit Arriola MD Unavailable [phone] Sujit Reyes MD Unavailable [phone] Zully Caldwell LPN Unavailable Unavailable Encounter [...] often do you attend chur ch or restorationist services? 1 to 4 times per year 08/30/2022 Do you belong to any clubs o r organizations such as faith groups, unions, fraternal or athletic groups, or [...] Recorded Patient Health Questionnaire-2 Score 0 08/04/2024 [facility] of Occupat ional Health - [...] in a custodial (including now)? No 05/27/2024 Humiliation, Afraid, Rape, [...] living in a custodial (including now)? No 08/15/2024 CAGE ASSESSMENT Answer [...] drink first t anselmo in the morning (EYE-DISPUTE COORDINATOR) to steady your nerves or to get rid of a hangover? 0 08/14/2024 CAGE Questionnaire Score 0 025 Utilities Answer Date Recorded In the past 12 months has th e [employer] gas, oil, or water [employer] threatened to shut off services in your [...] No 025 8:00 PM EDT Laura Cope, EVITA 2. Non-Specific Active Suici dillon Thoughts (Past 1 Month) No 08/15/2024 8:00 PM EDT Laura Cope , EVITA 6. Suicidal Behavior (Lifetime) No 8:00 PM EDT Laura Cope RN documented as of this encounter Plan of Treatment Upcoming Encounters Date Type Department Care Team (Late st Contact Info) Description 10/07/2024 12:50 PM EDT Office Visit [facility] Ot[facility] [address] 3[address] [place] [address] Chris Pepe MD [address] [place] [address] 10/07/2024 4:00 PM EDT Appointment Cardiac Imaging [address] [place] [address] 10/14/2024 11:00 AM EDT Office Visit [facility] Medicine Specialties [address]nd [place] [address] Cristian Zimmer MD [address] [place] [address] 10/18/2024 7:40 AM EDT Office Visit [facility] Internal Medicine [address], [address]rd [place] [address] Alisa Kunz, DO [address] [facility] [address] [place] [address] 10/25/2024 10:00 AM EDT Office Visit [facility] Nephrology, Bone & Mineral Metabolism [address] [facility], [address] [place] [address] Bryon Brandon MD [address] [place] [address] 10/27/2024 1:40 PM EDT [facility] End[facility] [address] [place] [address] Anne-Marie Kolb L, ROTARY CUTTER [address] [facility] [address] [place] [address] 02/02/2025 8:40 AM EST Office Visit [facility] Internal Medicine [address], [address]rd [place] [address] Alisa Kunz, DO [address] [facility] [address] [place] [address] documented as of this encounter [...] documented as of this encounter Care Teams Clinical Laboratory Aide Relationship Specialty Start Date End Date Alisa Kunz DO [address] [place] [address] PCP - General Internal Medicine 03/13/21 Kodi Bustos, DO [address] [address] Surgeon Cardiothoracic Surgery 11/06/22 Sujit Arriola MD [address] [place] [address] Consulting Physician Pulmonary Disease 11/06/22 Sujit Reyes MD [address] [place] [address] Referring Physician 12/04/22 Zully Caldwell, MARYBETH VALUE-[place] [address] TCM Nurse 07/16/24 08/15/24 documented as of this encounter
--- OUTSIDE RECORDS SUMMARY | 2024-10-04 10:29 | XMS_ITS | Encounter Summary ---
Author Organization [facility] Address [address] [place] [address] Care Team Providers Care Talent Manager Name Role Phone Alisa Kunz DO Primary Care Provider [phone] Kodi Bustos DO Unavailable [phone] Sujit Arriola MD Unavailable [phone] Sujit Reyes MD Unavailable [phone] Ekaterina Gómez Unavailable Unavailable Reason for Visit * Reason Comments Link Encounter Details Date Type Department Care Team (Late st Contact Info) Description 08/16/2024 Patient Outreach POP[facility] [address], [address] [place] [address] Ekaterina Gómez Link Social History [...] Recorded Patient Health Questionnaire-2 Score 0 08/04/2024 [facility] of Occupat ional Health [...] time in the past [address] [facility], were you homeless or living in [...] time in the past [address] [facility], were you homeless or living in [...] drink first t anselmo in the morning (EYE-MONOTYPE CASTER) to steady your nerves or to get [...] Ekaterina Gómez - 08/16/2024 3:55 PM EDT BERNADINE POLLARD met with pt bedside for introductions and review of the LINK program. Pt reports she is interested in having someone cook/clean for her and BERNADINE POLLARD reviewed that LINK nurses are available to provide care coordination and education on medications and health conditions, but are unable to cook/clean. Pt declined to enroll in LINK program. LINK SW provided her card for f/u questions. SW to close. Ekaterina Gómez LINK Navigator [email or web address] documented in this encounter Plan of Treatment Upcoming Encounters Date Type Department Care Team (Late st Contact Info) Description 10/07/2024 12:50 PM EDT Office Visit [facility] Otolaryngology [address]rd [place] [address] Chris Pepe MD [address] [place] [address] 10/07/2024 4:00 PM EDT Appointment Cardiac Imaging [address] [place] [address] 10/14/2024 11:00 AM EDT Office Visit [facility] Medicine Specialties [address]nd [place] [address] Cristian Zimmer MD [address] [place] [address] 10/18/2024 7:40 AM EDT Office Visit [facility] Internal Medicine [address], [address]rd [place] [address] Alisa Kunz DO [address] [place] [address] 10/25/2024 10:00 AM EDT Office Visit [facility] Nephrology, Bone & Mineral Metabolism [address] [facility], [address] [place] [address] Bryon Brandon MD [address] [place] [address] 10/27/2024 1:40 PM EDT Office Visit [facility] Endocrinology [address] [place] [address] Anne-Marie Kolb, PERINATAL DIRECTOR [address] [place] [address] 02/02/2025 8:40 AM EST Office Visit [facility] Internal Medicine [address], [address] [place] [address] Alisa Kunz DO [address] [place] [address] documented as of this encounter [...] documented as of this encounter Care Teams Talent Manager Relationship Specialty Start Date End Date Alisa Kunz DO [address] [place] [address] PCP - General Internal Medicine 03/13/21 Kodi Bustos, DO [address] [address] Surgeon Cardiothoracic Surgery 11/06/22 Sujit Arriola MD [address] [place] [address] Consulting Physician Pulmonary Disease 11/06/22 Sujit Reyes MD [address] [place] [address] Referring Physician 12/04/22 Ekaterina Gómez [employer] Field Examiner Network Support Technician 08/16/24 08/16/24 documented as of this encounter
--- OUTSIDE RECORDS SUMMARY | 2024-10-04 10:29 | XMS_ITS | Encounter Summary ---
Author Organization [facility] Address [address] [place] [address] Care Team Providers Care Housekeeping Room Attendant Name Role Phone Alisa Kunz DO Primary Care Provider [phone] Kodi Bustos DO Unavailable [phone] Sujit Arriola MD Unavailable [phone] Sujit Reyes MD Unavailable [phone] Zully Caldwell LPN Unavailable Unavailable Reason for Visit * Reason Onset Date Comments Edema 08/06/2024 Shortness of Breath 08/06/2024 Encounter Details Date Type Department Care Team (Late st Contact Info) Description 08/06/2024 Telephone [facility] Medicine Specialties [address] [place] [address] Ami Marley Edema; Shortness of Breath Social [...] often do you attend chur ch or adventism services? 1 to 4 times per year 08/30/2022 Do you belong to any clubs o r organizations such as samaritan groups, unions, fraternal or athletic groups, or [...] Patient Health Questionnaire-2 Score 0 08/04/2024 [facility] of Occupat ional Health - Occupational Stress [...] in the past 12 m [facility], were you homeless or living in a [...] drink first t anselmo in the morning (EYE-REVERSAL PRINT INSPECTOR) to steady your nerves or to [...] 10/07/2024 12:50 PM EDT Office Visit [facility] Otolaryngology [address] [place] [address] Chris Pepe MD [address] [place] [address] 10/07/2024 4:00 PM EDT Appointment Cardiac Imaging [address] [place] [address] 10/14/2024 11:00 AM EDT Office Visit [facility] Medicine Specialties [address] [place] [address] Cristian Zimmer MD [address] [facility] [address] [place] [address] 10/18/2024 7:40 AM EDT Office Visit [facility] Internal Medicine [address] [place] [address] Alisa Kunz DO [address] [place] [address] 10/25/2024 10:00 AM EDT Office Visit [facility] Nephrology, Bone & Mineral Metabolism [address] [facility], [address] [place] [address] Bryon Brandon MD [address] [place] [address] 10/27/2024 1:40 PM EDT Office Visit [facility] Endocrinology [address] [place] [address] Anne-Marie Kolb, PAINTER AND DECORATOR [address] [place] [address] 02/02/2025 8:40 AM EST Office Visit [facility] Internal Medicine [address], [address] [place] [address] Alisa Kunz DO [address] [place] [address] documented as of this encounter [...] documented as of this encounter Care Teams Housekeeping Room Attendant Relationship Specialty Start Date End Date Alisa Kunz DO [address] [facility] [address] [place] [address] PCP - General Internal Medicine 03/13/21 Kodi Bustos DO [address] [address] Surgeon Cardiothoracic Surgery 11/06/22 Sujit Arriola MD [address] [place] [address] Consulting Physician Pulmonary Disease 11/06/22 Sujit Reyes MD [address] [place] [address] Referring Physician 12/04/22 Zully Caldwell LPN VALUE[place] [address] TCM Nurse 07/16/24 08/15/24 documented as of this encounter
--- OUTSIDE RECORDS SUMMARY | 2024-10-04 10:29 | XMS_ITS | Encounter Summary ---
Author Organization [facility] Address [address] [place] [address] Care Team Providers Care School Library Media Program Director Name Role Phone Alisa Kunz DO Primary Care Provider Kodi Bustos DO Unavailable [phone] Sujit Arriola MD Unavailable [phone] Sujit Reyes MD Unavailable [phone] Zully Caldwell LPN Unavailable Unavailable Reason for Visit * Reason Onset Date Comments HCN Clinical Concern/Question 08/11/2024 Encounter Details Date Type Department Care Team (Late st Contact Info) Description 08/11/2024 Telephone [facility] Internal Medicine [address] [place] [address] Alisa Kunz DO [address] [place] [address] HCN Clinical Concern/Question Social History [...] any clubs o r organizations such as religion groups, unions, fraternal or athletic groups, or [...] Recorded Patient Health Questionnaire-2 Score 0 08/04/2024 [facility] of Occupat ional Health - Occupational Stress [...] drink first t anselmo in the morning (EYE-BLANKER OPERATOR) to steady your nerves or to get rid of a hangover? 0 07/12/2024 CAGE Questionnaire Score 0 025 Utilities Answer Date Recorded In the past 12 months has e [place], gas, oil, or water [employer] threatened to shut off services in your [...] remodeled. Pt was leaving to go to [employer] * Telephone Encounter - Alisa uKnz DO - 08/12/2024 9:35 AM EDT I'm [...] any questions. Thanks! Best contact number: Other: [phone] Optimal time of day to reach caller: ANYTIME Additional comments/information from caller: None Note: Please do not reply to this message. Follow-up communication and further actions as a result of this message need to be communicated with the patient directly, if the patient is not active onMyChart. If the patient is active on MyChart, they will receive notification of the communication/outcome via [employer]. documented in this encounter Plan of Treatment Upcoming Encounters Date Type Department Care Team (Late st Contact Info) Description 10/07/2024 12:50 PM EDT Office Visit [facility] Otolaryngology [address]rd [place] [address] Chris Pepe MD [address] [place] [address] 10/07/2024 4:00 PM EDT Appointment Cardiac Imaging [address] [place] [address] 10/14/2024 11:00 AM EDT Office Visit [facility] Medicine Specialties [address] [place] [address] Cristian Zimmer MD [address] [place] [address] 10/18/2024 7:40 AM EDT Office Visit [facility] Internal Medicine [address], [address] [place] [address] Alisa Kunz, DO [address] [place] [address] 10/25/2024 10:00 AM EDT Office Visit [facility] Nephrology, Bone & Mineral Metabolism [address] [facility], [address] [place] [address] Bryon Brandon MD [address] [place] [address] 10/27/2024 1:40 PM EDT Office Visit [facility] Endocrinology [address] [place] [address] Anne-Marie Kolb L, MOVIE THEATER USHER [address] [facility] [address] [place] [address] 02/02/2025 8:40 AM EST Office Visit [facility] Internal Medicine [address], [address] [place] [address] Alisa Kunz, DO [address] [place] [address] documented as of this encounter [...] as of this encounter Care Teams School Library Media Program Director Relationship Specialty Start Date End Date Alisa Kunz DO [address] [place] [address] PCP - General Internal Medicine 03/13/21 Kodi Bustos DO [address] [address] Surgeon Cardiothoracic Surgery 11/06/22 Sujit Arriola MD [address] [place] [address] Consulting Physician Pulmonary Disease 11/06/22 Sujit Reyes MD [address] [place] [address] Referring Physician 12/04/22 Zully Caldwell LPN VALUE[place] [address] TCM Nurse 07/16/24 08/15/24 documented as of this encounter
--- OUTSIDE RECORDS SUMMARY | 2024-10-04 10:29 | XMS_ITS ---
Author Organization [facility] Address [address] [place] [address] Care Team Providers Care Audit Officer Name Role Phone Alisa Kunz DO Primary Care Provider [phone] Kodi Bustos DO Unavailable [phone] Sujit Arriola MD Unavailable [phone] Sujit Reyes MD Unavailable [phone] Patricia Yañez LPN Unavailable Unavailab Zee Lr DO Unavailable [phone] Transitional Care Management Status:Closed (Closed) Start date:07/16/2024 Enrollment date:07/19/2024 Enrollment reason:Identified using hospital discharge data End date:08/15/2024 Close reason:Patient graduated Overview This episode type is for outpatient care managers enrolling patients in the [facility] Transitional Care Management program. Continued Care and Services Coordination
--- OUTSIDE RECORDS SUMMARY | 2024-10-04 10:29 | XMS_ITS | Encounter Summary ---
Author Organization [facility] Address [address] [place] [address] Care Team Providers Care School Cafeteria Head Cook Name Role Phone Alisa Kunz DO Primary Care Provider [phone] Kodi Bustos DO Unavailable [phone] Sujit Arriola MD Unavailable [phone] Sujit Reyes MD Unavailable [phone] Zully Caldwell DESIGN SUPERVISOR Unavailable Unavailable Ekaterina Gómez Unavailable Unavailable Patricia Yañez DESIGN SUPERVISOR Unavailable Unavailab Zee Lr DO Unavailable [phone] Reason for Visit * Reason Onset Date Comments HCN Clinical Concern/Question 08/09/2024 Encounter Details Date Type Department Care Team (Late st Contact Info) Description 08/09/2024 Telephone [facility] [place] [address] [facility], [address] [place] [address] Cassius Gonzales MD [address] [place] [address] HCN Clinical Concern/Question Social History [...] any clubs o r organizations such as latter-day groups, unions, fraternal or athletic groups, or [...] Recorded Patient Health Questionnaire-2 Score 0 09/08/2024 [facility] of Occupat ional Health [...] time in the past 12 m [facility], were you homeless or living [...] time in the past 12 m [facility], were you homeless or living in a alf (including now)? No 08/25/2024 CAGE ASSESSMENT Answer [...] drink first t anselmo in the morning (EYE-EMERGENCY ROOM ORDERLY) to steady your nerves or to get rid of a hangover? 0 08/14/2024 CAGE Questionnaire Score 0 025 Utilities Answer Date Recorded In the past 12 months has th e [employer], gas, oil, or water [employer] threatened to shut off services in your [...] much Not at all 09/08/2024 11:19 AM Shashank Barreto Feeling tired or having vasquez le energy Not at all 09/08/2024 11:19 AM Shashank Barreto Poor appetite or overeating Not at all 09/08/2024 11 :19 AM EDT Shashank Burrows Feeling bad about yourself - or that you are a failure or have let yourself or your family down Not at all 09/08/2024 11:19 AM EDT Shashank Frias Trouble concentrating on thi ngs, such as reading the newspaper or watching television Not at all 09/08/2024 11:19 AM JANET Shashank Burrows Moving or speaking so slowly [...] Questionnaire -9 Score 0 09/08/2024 11:19 AM Shashank Barreto * Calculated C-SSRS Risk Score (Lifetime/Recent) Answer Date of Assessment Author No Risk Indicated 09/09/2024 8:23 PM EDT Sandra Cunha RN * If you checked off any [...] to be (Past 1 Month) No 025 8:23 PM EDT Sandra Cunha, EVITA 2. Non-Specific Active Suici dillon Thoughts (Past 1 Month) No 09/09/2024 8:23 PM EDT Dwayne Cunha RN 6. Suicidal Behavior (Lifetime) No 8:23 PM EDT Sandra Cunha, RN documented as of this encounter Miscellaneous Notes * Telephone Encounter - Cassius Gonzales MD - 08/09/2024 2:00 PM EDT Ok thanks, she can always have the right heart cath in the hospital once she gets diuresed. * Telephone Encounter - Pat Mendes RN - 08/09/2024 1:47 PM EDT I [...] PM EDT Clinical Concern/Question Reason for Call: Janet Patient requesting a cb from nursing staff. Regarding needing a heart cath. Best contact number: [phone] Optimal time of day to reach caller: ANYTIME Additional comments/information from caller: None Note: Please do not reply to this message. Follow-up communication and further actions as a result of this message need to be communicated with the patient directly, if the patient is not active onMyChart. If the patient is active on MyChart, they will receive notification of the communication/outcome via [employer]. documented in this encounter Plan of Treatment Upcoming Encounters Date Type Department Care Team (Late st Contact Info) Description 10/07/2024 12:50 PM EDT Office Visit [facility] Otolaryngology [address], 3rd [place] [address] Chris Pepe MD [address] [place] [address] 10/07/2024 4:00 PM EDT Appointment Cardiac Imaging [address] [place] [address] 10/14/2024 11:00 AM EDT [facility] [address], [address] [place] [address] Cristian Zimmer MD [address] [place] [address] 10/18/2024 7:40 AM EDT Office Visit [facility] Internal Medicine [address], 3rd [place] [address] Alisa Kunz, [address] [place] [address] 10/25/2024 10:00 AM EDT Office Visit [facility] Nephrology, Bone & Mineral Metabolism [address] [facility], [address] [place] [address] Bryon Brandon MD [address] [place] [address] 10/27/2024 1:40 PM EDT Office Visit [facility] Endocrinology [address] [place] [address] Anne-Marie Kolb L, DIRECTOR OF RECRUITMENT AND ADMISSIONS [address] [place] [address] 02/02/2025 8:40 AM EST Office Visit [facility] Internal Medicine [address], 3rd [place] [address] Alisa Kunz DO [address] [place] [address] documented as of this encounter [...] as of this encounter Care Teams School Cafeteria Head Cook Relationship Specialty Start Date End Date Alisa Kunz DO [address] [place] [address] PCP - General Internal Medicine 03/13/21 Kodi Bustos DO [address] [address] Surgeon Cardiothoracic Surgery 11/06/22 Sujit Arriola MD [address] [place] [address] Consulting Physician Pulmonary Disease 11/06/22 Sujit Reyes MD [address] [place] [address] Referring Physician 12/04/22 Zully Caldwell LPN VALUE-[place]ED [place] [address] TCM Nurse 07/16/24 08/15/24 Ekaterina Gómez Therapeutic Dietitian Slope Tender 08/16/24 08/16/24 Patricia Yañez LPN [facility] TCM Nurse 08/25/24 Zee Lazar DO [address] [place] [address] Resident 09/08/24 documented as of this encounter
--- OUTSIDE RECORDS SUMMARY | 2024-10-04 10:29 | XMS_ITS | Encounter Summary ---
Author Organization [facility] Address [address] [place] [address] Care Team Providers Care Logistics Project Manager Name Role Phone Alisa Kunz DO Primary Care Provider [phone] Laura Albright NETWORK SUPPORT ADMINISTRATOR Unavailable Unavailable Balwinder Vale Unavailable Unavailable Kodi Bustos DO Unavailable [phone] Sujit Arriola MD Unavailable [phone] HatLaura navas LPN Unavailable Unavailable Sujit Reyes MD Unavailable [phone] Zully Caldwell LPN Unavailable Unavailable HatLaura navas LPN Unavailable Unavailable HatLaura navas LPN Unavailable Unavailable Tanya Powell Unavailable [phone] Sarah Reyes NETWORK SUPPORT ADMINISTRATOR Unavailable Unavailable Ekaterina Gómez Unavailable Unavailable Zully Caldwell NETWORK SUPPORT ADMINISTRATOR Unavailable Unavailable Ekaterina Gómez Unavailable Unavailable Patricia Yañez NETWORK SUPPORT ADMINISTRATOR Unavailable Unavailab Zee Lr DO Unavailable [phone] Reason for Visit * Reason Comments Med Refill Encounter Details Date Type Department Care Team (Late st Contact Info) Description 03/18/2022 Refill [facility] Internal Medicine [address], 3rd [place] [address] Alisa Kunz DO [address] [place] [address] Social History Tobacco Use Types [...] Description 10/07/2024 12:50 PM EDT Office Visit [facility] Otol[facility]ology [address] 3rd [place] [address] Chris Pepe MD [address] [place] [address] 10/07/2024 4:00 PM EDT Appointment Cardiac Imaging [address] [place] [address] 10/14/2024 11:00 AM EDT Office [facility] Medicine Specialties [address], 2[address] [place] [address] Cristian Zimmer MD [address] [place] [address] 10/18/2024 7:40 AM EDT Office Visit [facility] Internal Medicine [address], [address] [place] [address] Alisa Kunz, DO [address] [place] [address] 10/25/2024 10:00 AM EDT Office Visit [facility] Nephrology, Bone & Mineral Metabolism [address] [facility] [facility], [address] [place] [address] Bryon Brandon MD [address] [place] [address] 10/27/2024 1:40 PM EDT [facility] End[facility]ology [address] [place] [address] Anne-Marie Kolb L, OUTSOLE HANDLER [address] [facility] [address] [place] [address] 02/02/2025 8:40 AM EST Office Visit [facility] Internal Medicine [address], 3rd [place] [address] Alisa Kunz, DO [address] [place] [address] documented as of this encounter [...] 2:10 AM EST Respiratory Rule-Out 05/13/2024 05/13/2024 03/07/2 025 1:12 AM EST COVID-19 Rule-Out 05/14/2024 [...] Rule-Out 06/29/2024 06/29/2024 025 6:32 PM EDT COVID-19 Rule-Out 09/08/2024 09/08/2024 09/09/2024 10:48 AM EDT Assessment Noted Time A fall risk assessment has been complete d for the patient 02/20/2022 1:51 PM EST documented as of this encounter Care Teams Logistics Project Manager Relationship Specialty Start Date End Date Alisa Kunz DO [address] [place] [address] PCP - General Internal Medicine 03/13/21 Laura Albright LPN VALUE-BASED [place] [address] TCM Nurse 08/30/22 09/27/22 Balwinder Vale [address] [place] [address] Community Health Worker Formula Clerk 08/30/22 09/06/22 Kodi Bustos, DO [address] [address] Surgeon Cardiothoracic Surgery 11/06/22 Sujit Arriola MD [address] [place] [address] Consulting Physician Pulmonary Disease 11/06/22 Laura Albright LPN VALUE-BASED [place] [address] TCM Nurse 12/02/22 01/01/23 Sujit Reyes MD [address] [place] [address] Referring Physician 12/04/22 Zully Caldwell LPN VALUE-BASED [place] [address] TCM Nurse 02/03/23 03/05/23 Laura Albright LPN VALUE-BASED TRANSFORMATION PROGRAM [place] [id number] TCM Nurse 08/05/23 09/04/23 Laura Albright LPN VALUE-BASED [place] [address] TCM Nurse 02/17/24 03/18/24 T[address] [place] [address] [address] [place] [address] Registered Nurse 04/02/24 07/01/24 Sarah Reyes LPN TCM Nurse 05/27/24 06/26/24 Ekaterina Gómez Glassware Maker Formula Clerk 07/14/24 07/14/24 Zully Caldwell LPN VALUE-BASED [place] [address] TCM Nurse 07/16/24 08/15/24 Ekaterina Gómez Glassware Maker Formula Clerk 08/16/24 08/16/24 Patricia Yañez LPN [facility] TCM Nurse 08/25/24 Zee Lazar DO [address] [place] [address] Resident 09/08/24 documented as of this encounter
--- OUTSIDE RECORDS SUMMARY | 2024-10-04 10:29 | XMS_ITS ---
Author Organization [facility] Address [address] [place] [address] Care Team Providers Care Show Design Supervisor Name Role Phone Alisa Kunz Torri DO Primary Care Provider [phone] Kodi Bustos DO Unavailable [phone] Sujit Arriola MD Unavailable [phone] Sujit Reyes MD Unavailable [phone] Patricia Yañez LPN Unavailable Unavailab Zee Lr DO Unavailable [phone] Transitional Care Management Status:Closed (Closed) Start date:08/25/2024 Enrollment date:08/25/2024 Enrollment reason:Identified using hospital discharge data End date:09/17/2024 Close reason:Patient Readmitted Overview This episode type is for outpatient care managers enrolling patients in the [facility] Transitional Care Management program. Continued Care and Services Coordination
--- OUTSIDE RECORDS SUMMARY | 2024-10-04 10:29 | XMS_ITS | Encounter Summary ---
Author Organization [facility] Address [address] [place] [address] Care Team Providers Care Broadcast Journalist Name Role Phone Alisa Kunz DO Primary Care Provider [phone] Kodi Bustos DO Unavailable [phone] Sujit Arriola MD Unavailable [phone] Sujit Reyes MD Unavailable [phone] Zully Caldwell LPN Unavailable Unavailable Ekaterina Gómez Unavailable Unavailable Reason for Visit * Reason Comments Med Refill Encounter Details Date Type Department Care Team (Late st Contact Info) Description 08/15/2024 Refill [facility] Internal Medicine [address], [address] [place] [address] Alisa Kunz DO [address] [place] [address] Social History Tobacco Use Types [...] often do you attend chur ch or bahai services? 1 to 4 times per year [...] Recorded Patient Health Questionnaire-2 Score 0 08/04/2024 [facility] of Occupat ional Health - Occupational Stress [...] drink first t anselmo in the morning (EYE-CUSTOMER ADVOCATE) to steady your nerves or to get rid of a hangover? 0 08/14/2024 CAGE Questionnaire Score 0 025 Utilities Answer Date Recorded In the past 12 months has th [employer], gas, oil, or water [employer] threatened to shut off services in [...] Description 10/07/2024 12:50 PM EDT Office Visit [facility] Otolaryngology [address], 3rd [place] [address] Chris Pepe MD [address] [place] [address] 10/07/2024 4:00 PM EDT Appointment Cardiac Imaging [address] [place] [address] 10/14/2024 11:00 AM EDT Office Visit [facility] Medicine Specialties [address], [address] [place] [address] Cristian Zimmer MD [address] [place] [address] 10/18/2024 7:40 AM EDT Office Visit [facility] Internal Medicine [address], 3[address] [place] [address] Alisa Kunz DO [address] [place] [address] 10/25/2024 10:00 AM EDT Office Visit [facility] Nephrology, Bone & Mineral Metabolism [address] [facility], [address] [place] [address] Bryon Brandon MD [address] [place] [address] 10/27/2024 1:40 PM EDT Office Visit [facility] Endocrinology [address] [place] [address] Anne-Marie Kolb L, MEDICAL OFFICE MANAGER [address] [place] [address] 02/02/2025 8:40 AM EST Office Visit [facility] Internal Medicine [address], [address] [place] [address] Alisa Kunz DO [address] [place] [address] documented as of this encounter [...] documented as of this encounter Care Teams Broadcast Journalist Relationship Specialty Start Date End Date Alisa Kunz DO [address] [place] [address] PCP - General Internal Medicine 03/13/21 Kodi Bustos DO [address] [address] Surgeon Cardiothoracic Surgery 11/06/22 Sujit Arriola MD [address] [place] [address] Consulting Physician Pulmonary Disease 11/06/22 Sujit Reyes MD [address] [place] [address] Referring Physician 12/04/22 Zully Caldwell LPN VALUE-BASED [place] [address] [facility] Nurse 07/16/24 08/15/24 Ekaterina Gómez Dredge Mate Putty And Caulking Supervisor 08/16/24 08/16/24 documented as of this encounter
--- OUTSIDE RECORDS SUMMARY | 2024-10-04 10:29 | XMS_ITS | Encounter Summary ---
Author Organization [facility] Address [address] [place] [address] Care Team Providers Care Barrel Raiser Name Role Phone Alisa Kunz DO Primary Care Provider Kodi Bustos DO Unavailable [phone] Sujit Arriola MD Unavailable [phone] Sujit Reyes MD Unavailable [phone] Zully Caldwell LPN Unavailable Unavailable Reason for Visit * Reason Onset Date Comments HCN Clinical Concern/Question 08/12/2024 Encounter Details Date Type Department Care Team (Late st Contact Info) Description 08/12/2024 Telephone [facility] Internal Medicine [address], 3rd [place] [address] Alisa Kunz DO [address] [place] [address] HCN Clinical Concern/Question Social History [...] How often do you attend chur or advent services? 1 to 4 times [...] Recorded Patient Health Questionnaire-2 Score 0 08/04/2024 [facility] of Occupat ional Health - Occupational Stress [...] any time in the past 12 m [facility], were you homeless or living in a snf (including now)? No 05/27/2024 CAGE ASSESSMENT Answer [...] drink first t anselmo in the morning (EYE-MISSION PLANNER) to steady your nerves or to get rid of a hangover? 0 07/12/2024 CAGE Questionnaire Score 0 025 Utilities Answer Date Recorded In the past 12 months has e [employer], [employer], oil, or water [employer] threatened to shut off services in your [...] I also sent it to her on [employer] in a message * Telephone Encounter - [...] off of the Gabapentin. Best contact number: [phone] Optimal time of day to reach caller: [...] Visit [facility] Otolaryngology [address] 3rd [place] [address] Chris Pepe MD [address] [place] [address] 10/07/2024 4:00 PM EDT Appointment Cardiac Imaging [address] [place] [address] 10/14/2024 11:00 AM EDT Office Visit [facility] Medicine Specialties [address] [place] [address] Cristian Zimmer MD [address] [place] [address] 10/18/2024 7:40 AM EDT Office Visit [facility] Internal Medicine [address], [address]rd [place] [address] Alisa Kunz DO [address] [place] [address] 10/25/2024 10:00 AM EDT Office Visit [facility] Nephrology, Bone & Mineral Metabolism [address] [facility], [address] [place] [address] Bryon Brandon MD [address] [place] [address] 10/27/2024 1:40 PM EDT Office Visit [facility] Endocrinology [address] [place] [address] Anne-Marie Kolb L, CLINICAL ADMISSIONS MANAGER [address] [place] [address] 02/02/2025 8:40 AM EST Office Visit [facility] Internal Medicine [address], [address] [place] [address] Alisa Kunz DO [address] [place] [address] documented as of this encounter [...] documented as of this encounter Care Teams Barrel Raiser Relationship Specialty Start Date End Date Alisa Kunz DO [address] [place] [address] PCP - General Internal Medicine 03/13/21 Kodi Bustos DO [address] [address] Surgeon Cardiothoracic Surgery 11/06/22 Sujit Arriola MD [address] [place] [address] Consulting Physician Pulmonary Disease 11/06/22 Sujit Reyes MD [address] [place] [address] Referring Physician 12/04/22 Zully Caldwell LPN VALUE-BASED [place] [address] [facility] Nurse 07/16/24 08/15/24 documented as of this encounter
--- OUTSIDE RECORDS SUMMARY | 2024-10-04 10:30 | XMS_ITS | Encounter Summary ---
Author Organization [facility] Address [address] [place] [address] Care Team Providers Care Dairy Helper Name Role Phone Alisa Kunz DO Primary Care Provider [phone] Kodi Bustos DO Unavailable [phone] Sujit Arriola MD Unavailable [phone] Sujit Reyes MD Unavailable [phone] Encounter Details Date Type Department Care [...] often do you attend chur ch or shinto services? 1 to 4 times per year 08/30/2022 Do you belong to any clubs o r organizations such as orthodoxy groups, unions, fraternal or athletic groups, or [...] when you are drinking? 3 or 4 3 Q3: How often do you have si x or more drinks on one occasion? Less than monthly 08/30/2022 Overall Financial Resource Strain (CARDIA) Answe r Date Recorded How hard is it for you to pa y for the very basics like food, housing, medical care, and heating? Not hard at all 08/30/2022 PHQ-2 Answer Date Recorded Patient Health Questionnaire-2 Score 0 08/04/2024 [facility] of Occupat ional Health - [...] living in a mcc (including now)? No 08/15/2024 CAGE ASSESSMENT Answer [...] drink first t anselmo in the morning (EYE-DUCTFIXING PLUMBER) to steady your nerves or to get rid of a hangover? 0 08/14/2024 CAGE Questionnaire Score 0 025 Utilities Answer Date Recorded In the past 12 months has th e [employer], gas, oil, or water company threatened to [...] Description 10/07/2024 12:50 PM EDT Office [facility]ol[facility]ology [address] [place] [address] Chris Pepe MD [address] [place] [address] 10/07/2024 4:00 PM EDT Appointment Cardiac Imaging [address] [place] [address] 10/14/2024 11:00 AM EDT Office Visit [facility] Medicine Specialties [address] [place] [address] Cristian Zimmer MD [address] [place] [address] 10/18/2024 7:40 AM EDT Office Visit [facility] Internal Medicine [address], [address]rd [place] [address] Alisa Kunz, DO [address] [place] [address] 10/25/2024 10:00 AM EDT Office Visit [facility] Nephrology, Bone & Mineral Metabolism [address] [facility], [address] [place] [address] Bryon Brandon MD [address] [place] [address] 10/27/2024 1:40 PM EDT Office Visit [facility] Endocrinology [address] [place] [address] Anne-Marie Kolb L, ADMINISTRATOR [facility] F[facility]ILITY [address] [facility] [address] [place] [address] 02/02/2025 8:40 AM EST Office Visit [facility] Internal Medicine [address], 3[address] [place] [address] Alisa Kunz, DO [address] [place] [address] documented as of this encounter [...] documented as of this encounter Care Teams Dairy Helper Relationship Specialty Start Date End Date Alisa Kunz DO [address] [place] [address] PCP - General Internal Medicine 03/13/21 Kodi Bustos DO [address] [address] Surgeon Cardiothoracic Surgery 11/06/22 Sujit Arriola MD [address] [place] [address] Consulting Physician Pulmonary Disease 11/06/22 Sujit Reyes MD [address] [place] [address] Referring Physician 12/04/22 documented as of this encounter
--- OUTSIDE RECORDS SUMMARY | 2024-10-04 10:30 | XMS_ITS | Encounter Summary ---
Author Organization [facility] Address [address] [place] [address] Care Team Providers Care Pharmaceutical Scientist Name Role Phone Alisa Kunz DO Primary Care Provider [phone] Kodi Bustos DO Unavailable [phone] Sujit Arriola MD Unavailable [phone] Sujit Reyes MD Unavailable [phone] Zully Caldwell LPN Unavailable Unavailable Reason for Visit * Reason Onset Date Comments HCN Clinical Concern/Question 08/06/2024 Encounter Details Date Type Department Care Team (Late st Contact Info) Description 08/06/2024 Telephone [facility] Internal Medicine [address], [address]rd [place] [address] Alisa Kunz DO [address] [place] [address] HCN Clinical Concern/Question Social History [...] How often do you attend chur or tenriism services? 1 to 4 times [...] Recorded Patient Health Questionnaire-2 Score 0 08/04/2024 [facility] of Occupat ional Health - Occupational Stress [...] drink first t anselmo in the morning (EYE-TUBE TURNER) to steady your nerves or to get rid of a hangover? 0 07/12/2024 CAGE Questionnaire Score 0 025 Utilities Answer Date Recorded In the past 12 months has e [employer], gas, oil, or water [employer] threatened to shut off services in your [...] in the ER.Please call Best contact number: [phone] (mobile) Optimal time of day to reach caller: ANYTIME Additional comments/information from caller: None Note: Please do not reply to this message. Follow-up communication and further actions as a result of this message need to be communicated with the patient directly, if the patient is not active onMyChart. If the patient is active on MyChart, they will receive notification of the communication/outcome via [employer]t. * Telephone Encounter - Madison Sheikh - 08/06/2024 10:01 AM EDT Clinical Concern/Question Reason for Call: [employer] calling to ask if pts PCP is able to order a Six Minute Oxygen Exertion test. Please call to advise. A fax will also be sent requesting this. Best contact number: Other: [phone] Optimal time of day to reach caller: ANYTIME Additional comments/information from caller: None Note: Please do not reply to this message. Follow-up communication and further actions as a result of this message need to be communicated with the patient directly, if the patient is not active onMyChart. If the patient is active on MyChart, they will receive notification of the communication/outcome via [employer]. documented in this encounter Plan of Treatment Upcoming Encounters Date Type Department Care Team (Late st Contact Info) Description 10/07/2024 12:50 PM EDT Office Visit [facility] Otolaryngology [address] [place] [address] Chris Pepe MD [address] [place] [address] 10/07/2024 4:00 PM EDT Appointment Cardiac Imaging [address] [place] [address] 10/14/2024 11:00 AM EDT Office Visit [facility] Medicine Specialties [address] [place] [address] Cristian Zimmer MD [address] [place] [address] 10/18/2024 7:40 AM EDT Office Visit [facility] Internal Medicine [address] [place] [address] Ze, Alisa L, DO [address] [place] [address] 10/25/2024 10:00 AM EDT Office Visit [facility] [place] Nephrology, Bone & Mineral Metabolism [address], [address] [place] [address] Bryon Brandon MD [address] [place] [address] 10/27/2024 1:40 PM EDT Office Visit [facility] Endocrinology [address] [place] [address] Anne-Marie Kolb L, PROJECT FACILITATOR [address] [facility] [address] [place] [address] 02/02/2025 8:40 AM EST Office Visit [facility] Internal Medicine [address] [place] [address] Alisa Kunz DO [address] [facility] [address] [place] [address] documented as of this encounter [...] documented as of this encounter Care Teams Pharmaceutical Scientist Relationship Specialty Start Date End Date Alisa Kunz DO [address] [place] [address] PCP - General Internal Medicine 03/13/21 Kodi Bustos, DO [address] [address] Surgeon Cardiothoracic Surgery 11/06/22 Sujit Arriola MD [address] [place] [address] Consulting Physician Pulmonary Disease 11/06/22 Sujit Reyes MD [address] [place] [address] Referring Physician 12/04/22 Zully Caldwell LPN VALUE-[place]ED [place] [address] TCM Nurse 07/16/24 08/15/24 documented as of this encounter
--- OUTSIDE RECORDS SUMMARY | 2024-10-04 10:30 | XMS_ITS | Encounter Summary ---
Author Organization [facility] Address [address] [place] [address] Care Team Providers Care Bottle Packing Machine Cleaner Name Role Phone Alisa Kunz Torri DO Primary Care Provider [phone] Kodi Bustos DO Unavailable [phone] Sujit Arriola MD Unavailable [phone] Sujit Reyes MD Unavailable [phone] Zully Caldwell FOOD AND BEVERAGE INTERN Unavailable Unavailable Ekaterina Gómez Unavailable Unavailable Patricia Yañez FOOD AND BEVERAGE INTERN Unavailable Unavailab le Encounter Details Date Type Department Care Team (Late st Contact Info) Description 08/06/2024 [facility] [address] [place] [address] Anne-Marie Kolb, FABRICATING MACHINE OPERATOR [address] [facility] [address] [place] [address] Social History Tobacco Use Types [...] any clubs o r organizations such as advent groups, unions, fraternal or athletic groups, or [...] Patient Health Questionnaire-2 Score 0 08/04/2024 [facility] of Occupat ional Health - [...] any time in the past 12 m [facility], were you homeless or living [...] any time in the past 12 m [facility], were you homeless or living [...] first t anselmo in the morning (EYE-HOT SAW HELPER) to steady your nerves or to get rid of a hangover? 0 08/14/2024 CAGE Questionnaire Score 0 025 Utilities Answer Date Recorded In the past 12 months has e [employer], gas, oil, or water company threatened to [...] Risk Indicated 08/24/2024 8:11 AM EDT Kosta Oates RN * Question Answer Date of Assessment Author 1. Wish to be (Past 1 Month) No 025 8:11 AM EDT Kosta Dugan RN 2. Non-Specific Active Suici dillon Thoughts (Past 1 Month) No 08/24/2024 8:11 AM EDT Autumn Dugan RN 6. Suicidal Behavior (Lifetime) No 8:11 AM JANET Ksota Dugan RN documented as of this encounter [...] Description 10/07/2024 12:50 PM EDT Office Visit [facility] Otolaryngology [address] [place] [address] Chris Pepe MD [address] [place] [address] 10/07/2024 4:00 PM EDT Appointment Cardiac Imaging [address] [place] [address] 10/14/2024 11:00 AM EDT Office Visit [facility] Medicine Specialties [address] [place] [address] Cristian Zimmer MD [address] [place] [address] 10/18/2024 7:40 AM EDT Office Visit [facility] Internal Medicine [address], 3rd [place] [address] Alisa Kunz, DO [address] [place] [address] 10/25/2024 10:00 AM EDT Office Visit [facility] Nephrology, Bone & Mineral Metabolism [address] [facility], [address] [place] [address] Bryon Brandon MD [address] [place] [address] 10/27/2024 1:40 PM EDT Office Visit [facility] Endocrinology [address] [place] [address] Anne-Marie Kolb L, FABRICATING MACHINE OPERATOR [address] [place] [address] 02/02/2025 8:40 AM EST Office Visit [facility] Internal Medicine [address] [place] [address] Alisa Kunz, DO [address] [place] [address] documented as of this encounter [...] documented as of this encounter Care Teams Bottle Packing Machine Cleaner Relationship Specialty Start Date End Date Alisa Kunz DO [address] [place] [address] PCP - General Internal Medicine 03/13/21 Kodi Bustos DO [address] [address] Surgeon Cardiothoracic Surgery 11/06/22 Sujit Arriola MD [address] [place] [address] Consulting Physician Pulmonary Disease 11/06/22 Sujit Reyes MD [address] [place] [address] Referring Physician 12/04/22 Zully Caldwell LPN VALUE-[place]ED [place] [address] TCM Nurse 07/16/24 08/15/24 Ekaterina Gómez Hospice Liaison Timber Framer 08/16/24 08/16/24 Patricia Yañez LPN [facility] TCM Nurse 08/25/24 documented as of this encounter
--- OUTSIDE RECORDS SUMMARY | 2024-10-04 10:30 | XMS_ITS | Encounter Summary ---
Author Organization [facility] Address [address] [place] [address] Care Team Providers Care Sausage Smoker Name Role Phone lAisa Kunz DO Primary Care Provider [phone] Kodi Bustos DO Unavailable [phone] Sujit Arriola MD Unavailable [phone] Sujit Reyes MD Unavailable [phone] Encounter Details Date Type Department Care [...] Recorded Patient Health Questionnaire-2 Score 0 08/04/2024 [facility] of Occupat ional Health - Occupational [...] living in a fpc (including now)? No 08/15/2024 CAGE ASSESSMENT Answer [...] drink first t anselmo in the morning (EYE-SCIENTIFIC MANAGER) to steady your nerves or to [...] Description 10/07/2024 12:50 PM EDT Office Visit [facility] Otolaryngology [address] [place] [address] Chris Pepe MD [address] [place] [address] 10/07/2024 4:00 PM EDT Appointment Cardiac Imaging [address] [place] [address] 10/14/2024 11:00 AM EDT Office Visit [facility] Medicine Specialties [address] [place] [address] Cristian Zimmer MD [address] [place] [address] 10/18/2024 7:40 AM EDT Office Visit [facility] Internal Medicine [address], 3rd [place] [address] Ze, Alisa L, DO [address] [place] [address] 10/25/2024 10:00 AM EDT Office Visit [facility] Nephrology, Bone & Mineral Metabolism [address] [facility], [address] [place] [address] Bryon Brandon MD [address] [place] [address] 10/27/2024 1:40 PM EDT Office Visit [facility] Endocrinology [address] [place] [address] Anne-Marie Kobl L, SOFTWARE ENGINEER INTERN [address] [facility] [address] [place] [address] 02/02/2025 8:40 AM EST Office Visit [facility] Internal Medicine [address], [address] [place] [address] Alisa Kunz, DO [address] [facility] [address] [place] [address] documented as of this encounter [...] documented as of this encounter Care Teams Sausage Smoker Relationship Specialty Start Date End Date Alisa Kunz DO [address] [place] [address] PCP - General Internal Medicine 03/13/21 Kodi Bustos, DO [address] [address] Surgeon Cardiothoracic Surgery 11/06/22 Sujit Arriola MD [address] [place] [address] Consulting Physician Pulmonary Disease 11/06/22 Sujit Reyes MD [address] [place] [address] Referring Physician 12/04/22 documented as of this encounter
--- OUTSIDE RECORDS SUMMARY | 2024-10-04 10:30 | XMS_ITS | Encounter Summary ---
Author Organization [facility] Address [address] [place] [address] Care Team Providers Care Construction Recruiter Name Role Phone Alisa Kunz DO Primary Care Provider [phone] Kodi Bustos DO Unavailable [phone] Sujit Arriola MD Unavailable [phone] Sujit Reyes MD Unavailable [phone] Encounter Details Date Type Department Care [...] often do you attend chur ch or congregational services? 1 to 4 times per year 08/30/2022 Do you belong to any clubs o r organizations such as hoahaoism groups, unions, fraternal or athletic groups, or [...] Recorded Patient Health Questionnaire-2 Score 0 08/04/2024 [facility] of Occupat ional Health - [...] drink first t anselmo in the morning (EYE-LABORER DEMOLITION) to steady your nerves or to get rid of a hangover? 0 08/14/2024 CAGE Questionnaire Score 0 025 Utilities Answer Date Recorded In the past 12 months has th e [employer], gas, oil, or water company threatened to [...] Month) No 025 8:00 PM EDT Marlene Jain, EVITA 2. Non-Specific Active Suici dillon Thoughts (Past 1 Month) No 08/20/2024 8:00 PM EDT Sebastián Jain, EVITA 6. Suicidal Behavior (Lifetime) No 8:00 PM EDT Marlene Jain, EVITA documented as of this encounter Plan of Treatment Upcoming Encounters Date Type Department Care Team (Late st Contact Info) Description 10/07/2024 12:50 PM EDT Office Visit [facility] Otolaryngology [address] [place] [address] Chris Pepe MD [address] [place] [address] 10/07/2024 4:00 PM EDT Appointment Cardiac Imaging [address] [place] [address] 10/14/2024 11:00 AM EDT Office Visit [facility] Medicine Specialties [address] [place] [address] Cristian Zimmer MD [address] [place] [address] 10/18/2024 7:40 AM EDT Office Visit [facility] Internal Medicine [address] [place] [address] Alisa Kunz, DO [address] [facility] [address] [place] [address] 10/25/2024 10:00 AM EDT Office Visit [facility] Nephrology, Bone & Mineral Metabolism [address] [facility], [address] [place] [address] Bryon Brandon MD [address] [place] [address] 10/27/2024 1:40 PM EDT Office Visit [facility] Endocrinology [address] [place] [address] Anne-Marie Kolb L, RETAIL MERCHANDISING COORDINATOR [address] [facility] [address] [place] [address] 02/02/2025 8:40 AM EST Office Visit [facility] Internal Medicine [address] [place] [address] Alisa Kunz, DO [address] [facility] [address] [place] [address] documented as of this encounter [...] documented as of this encounter Care Teams Construction Recruiter Relationship Specialty Start Date End Date Alisa Kunz DO [address] [place] [address] PCP - General Internal Medicine 03/13/21 Kodi Bustos DO [address] [address] Surgeon Cardiothoracic Surgery 11/06/22 Sujit Arriola MD [address] [place] [address] Consulting Physician Pulmonary Disease 11/06/22 Sujit Reyes MD [address] [place] [address] Referring Physician 12/04/22 documented as of this encounter
--- OUTSIDE RECORDS SUMMARY | 2024-10-04 10:30 | XMS_ITS | Encounter Summary ---
Author Organization [facility] Address [address] [place] [address] Care Team Providers Care Hole Puncher Strap Name Role Phone Alisa Kunz DO Primary Care Provider [phone] Kodi Bustos DO Unavailable [phone] Sujit Arriola MD Unavailable [phone] uSjit Reyes MD Unavailable [phone] Encounter Details Date Type Department Care [...] often do you attend chur ch or baptist services? 1 to 4 times per year 08/30/2022 Do you belong to any clubs o r organizations such as mandaen groups, unions, fraternal or athletic groups, or [...] drink first t anselmo in the morning (EYE-CHANGE MANAGEMENT SPECIALIST) to steady your nerves or to get rid of a hangover? 0 08/14/2024 CAGE Questionnaire Score 0 025 Utilities Answer Date Recorded In the past 12 months has th e [employer], gas, oil, or water company threatened to [...] Description 10/07/2024 12:50 PM EDT Office Visit [facility] Otol[facility]ology [address] [place] [address] Chris Pepe MD [address] [place] [address] 10/07/2024 4:00 PM EDT Appointment Cardiac Imaging [address] [place] [address] 10/14/2024 11:00 AM EDT Office Visit [facility] Medicine Specialties [address] [place] [address] Cristian Zimmer MD [address] [place] [address] 10/18/2024 7:40 AM EDT Office Visit [facility] Internal Medicine [address] [place] [address] Alisa Kunz, DO [address] [facility] [address] [place] [address] 10/25/2024 10:00 AM EDT Office Visit [facility] Nephrology, Bone & Mineral Metabolism [address] [facility], [address] [place] [address] Bryon Brandon MD [address] [place] [address] 10/27/2024 1:40 PM EDT Office Visit [facility] Endocrinology [address] [place] [address] Anne-Marie Kolb L, PSYCHIATRIC NURSING AIDE [address] [facility] [address] [place] [address] 02/02/2025 8:40 AM EST Office Visit [facility] Internal Medicine [address] [place] [address] Alisa Kunz, DO [address] [facility] [address] [place] [address] documented as of this encounter [...] documented as of this encounter Care Teams Hole Puncher Strap Relationship Specialty Start Date End Date Alisa Kunz DO [address] [place] [address] PCP - General Internal Medicine 03/13/21 Kodi Bustos DO [address] [address] Surgeon Cardiothoracic Surgery 11/06/22 Sujit Arriola MD [address] [place] [address] Consulting Physician Pulmonary Disease 11/06/22 Sujit Reyes MD [address] [place] [address] Referring Physician 12/04/22 documented as of this encounter
--- OUTSIDE RECORDS SUMMARY | 2024-10-04 10:30 | XMS_ITS | Encounter Summary ---
Author Organization [facility] Address [address] [place] [address] Care Team Providers Care Company Accountant Name Role Phone Alisa Kunz DO Primary Care Provider [phone] Kodi Bustos DO Unavailable [phone] Sujit Arriola MD Unavailable [phone] Sujit Reyes MD Unavailable [phone] Encounter Details Date Type Department Care [...] often do you attend chur ch or hoahaoism services? 1 to 4 times [...] Health Questionnaire-2 Score 0 08/04/2024 [facility] of Occupat ional Health - Occupational [...] any time in the past 12 m [facility], were you homeless or living in a [...] any time in the past 12 m [facility], were you homeless or living in a [...] drink first t anselmo in the morning (EYE-LICENSED OCCUPATIONAL THERAPIST) to steady your nerves or to get rid of a hangover? 0 08/14/2024 CAGE Questionnaire Score 0 025 Utilities Answer Date Recorded In the past 12 months has th e [employer], gas, oil, or water company threatened to [...] [address] [place] [address] Chris Pepe MD [address] [place] [address] 10/07/2024 4:00 PM EDT Appointment Cardiac Imaging [address] [place] [address] 10/14/2024 11:00 AM EDT Office Visit [facility] Medicine Specialties [address] [place] [address] Cristian Zimmer MD [address] [place] [address] 10/18/2024 7:40 AM EDT Office Visit [facility] Internal Medicine [address]rd [place] [address] Alisa Kunz, DO [address] [facility] [address] [place] [address] 10/25/2024 10:00 AM EDT Office Visit [facility] Nephrology, Bone & Mineral Metabolism [address] [facility], [address] [place] [address] Bryon Brandon MD [address] [place] [address] 10/27/2024 1:40 PM EDT [facility] [address] [place] [address] Anne-Marie Kolb L, SIGNAL OPERATOR LINGUIST [address] [facility] [address] [place] [address] 02/02/2025 8:40 AM EST Office Visit [facility] Internal Medicine [address] [place] [address] Alisa Kunz, DO [address] [place] [address] documented as of this encounter [...] documented as of this encounter Care Teams Company Accountant Relationship Specialty Start Date End Date Alisa Kunz DO [address] [place] [address] PCP - General Internal Medicine 03/13/21 Kodi Bustos DO [address] [address] Surgeon Cardiothoracic Surgery 11/06/22 Sujit Arriola MD [address] [place] [address] Consulting Physician Pulmonary Disease 11/06/22 Sujit Reyes MD [address] [place] [address] Referring Physician 12/04/22 documented as of this encounter
--- OUTSIDE RECORDS SUMMARY | 2024-10-04 10:31 | XMS_ITS | Encounter Summary ---
Author Organization [facility] Address [address] [place] [address] Care Team Providers Care Reel Fed Printer Name Role Phone Alsia Kunz DO Primary Care Provider [phone] Kodi Bustos DO Unavailable [phone] Sujit Arriola MD Unavailable [phone] Sujit Reyes MD Unavailable [phone] Encounter Details Date Type Department Care [...] often do you attend chur ch or pentecostalism services? 1 to 4 times per year [...] Health Questionnaire-2 Score 0 08/04/2024 [facility] of Occupat ional Health - Occupational [...] in the past [address] [facility], were you homeless or living [...] in the past [address] [facility], were you homeless or living in a detention (including now)? No 08/15/2024 CAGE ASSESSMENT Answer [...] drink first t anselmo in the morning (EYE-TUMBLING MACHINE OPERATOR) to steady your nerves or [...] Description 10/07/2024 12:50 PM EDT Office Visit [facility] Otolaryngology [address]rd [place] [address] Chris Pepe MD [address] [place] [address] 10/07/2024 4:00 PM EDT Appointment Cardiac Imaging [address] [place] [address] 10/14/2024 11:00 AM EDT Office Visit [facility] Medicine Specialties [address] [place] [address] Cristian Zimmer MD [address] [place] [address] 10/18/2024 7:40 AM EDT Office Visit [facility] Internal Medicine [address], [address]rd [place] [address] Ze, Alisa L, DO [address] [place] [address] 10/25/2024 10:00 AM EDT Office Visit [facility] Nephrology, Bone & Mineral Metabolism [address] [facility], [address] [place] [address] Bryon Brandon MD [address] [place] [address] 10/27/2024 1:40 PM EDT Office Visit [facility] Endocrinology [address] [place] [address] Anne-Marie Kolb L, TRESTLE BUILDER [address] [facility] 125 [place] [address] 02/02/2025 8:40 AM EST Office Visit [facility] Internal Medicine [address], 3rd [place] [address] Alisa Kunz, DO [address] [facility] [address] [place] [address] documented as of this encounter [...] documented as of this encounter Care Teams Reel Fed Printer Relationship Specialty Start Date End Date Alisa Kunz DO [address] [place] [address] PCP - General Internal Medicine 03/13/21 Kodi Bustos, DO [address] [address] Surgeon Cardiothoracic Surgery 11/06/22 Sujit Arriola MD [address] [place] [address] Consulting Physician Pulmonary Disease 11/06/22 Sujit Reyes MD [address] [place] [address] Referring Physician 12/04/22 documented as of this encounter
--- OUTSIDE RECORDS SUMMARY | 2024-10-04 10:31 | XMS_ITS | Encounter Summary ---
Author Organization [facility] Address [address] [place] [address] Care Team Providers Care Bank Guard Name Role Phone Alisa Kunz DO Primary Care Provider Kodi Bustos DO Unavailable [phone] Sujit Arriola MD Unavailable [phone] Sujit Reyes MD Unavailable [phone] Patricia Yañez LPN Unavailable Unavailab le Reason for Visit * Reason Comments Med Refill Encounter Details Date Type Department Care Team (Late st Contact Info) Description 08/25/2024 [facility] Medicine Specialties [address] [place] [address] Noris Yee MD [address] [place] [address] Systemic lupus erythematosus (SLE) in adult (CMS/[facility]) Social History Tobacco Use Types Packs/Day Years [...] often do you attend chur ch or confucianist services? 1 to 4 times per year 08/30/2022 Do you belong to any clubs o r organizations such as congregation groups, unions, fraternal or athletic groups, or [...] Recorded Patient Health Questionnaire-2 Score 0 08/04/2024 [facility] [place] of Occupat ional Health - Occupational Stress [...] living in a custodial (including now)? No 08/25/2024 CAGE ASSESSMENT Answer [...] first t anselmo in the morning (EYE-CUSTOMER CONSULTING MANAGER) to steady your nerves or to [...] Description 10/07/2024 12:50 PM EDT [facility] [address] 3rd [place] [address] Chris Pepe MD [address] [place] [address] 10/07/2024 4:00 PM EDT Appointment Cardiac Imaging [address] [place] [address] 10/14/2024 11:00 AM EDT Office Visit [facility] Medicine Specialties [address] [place] [address] Cristian Zimmer MD [address] [place] [address] 10/18/2024 7:40 AM EDT Office Visit [facility] Internal Medicine [address], 3rd [place] [address] Alisa Kunz, DO [address] [place] [address] 10/25/2024 10:00 AM EDT Office Visit [facility] Nephrology, Bone & Mineral Metabolism [address] [facility], [address] [place] [address] Bryon Brandon MD [address] [place] [address] 10/27/2024 1:40 PM EDT Office Visit [facility] Endocrinology [address] [place] [address] Anne-Marie Kolb L, POOL NURSE [address] [facility] 125 [place] [address] 02/02/2025 8:40 AM EST Office Visit [facility] Internal Medicine [address], 3rd [place] [address] Alisa Kunz, DO [address] [place] [address] documented as of this encounter [...] as of this encounter Care Teams Bank Guard Relationship Specialty Start Date End Date Alisa Kunz DO [address] [place] [address] PCP - General Internal Medicine 03/13/21 Kodi Bustos DO [address] [address] Surgeon Cardiothoracic Surgery 11/06/22 Sujit Arriola MD [address] [place] [address] Consulting Physician Pulmonary Disease 11/06/22 Sujit Reyes MD [address] [place] [address] Referring Physician 12/04/22 Patricia Yañez LPN [facility] TCM Nurse 08/25/24 documented as of this encounter
--- OUTSIDE RECORDS SUMMARY | 2024-10-04 10:32 | XMS_ITS | Encounter Summary ---
Author Organization [facility] Address [address] [place] [address] Care Team Providers Care Tank Builder And Erector Name Role Phone Alisa Kunz DO Primary Care Provider Kodi Bustos DO Unavailable [phone] Sujit Arriola MD Unavailable [phone] Sujit Reyes MD Unavailable [phone] Patricia Yañez LPN Unavailable Unavailab le Reason for Visit * Reason Onset Date Comments HCN Clinical Concern/Question 08/25/2024 Encounter Details Date Type Department Care Team (Late st Contact Info) Description 08/25/2024 Telephone [facility] Internal Medicine [address], [address]rd [place] [address] Alisa Kunz DO [address] [place] [address] HCN Clinical Concern/Question Social History [...] often do you attend chur ch or judaism services? 1 to 4 times [...] Recorded Patient Health Questionnaire-2 Score 0 08/04/2024 [facility] of Occupat ional Health [...] in the past [address] [facility], were you homeless or living [...] in the past [address] [facility], were you homeless or living [...] drink first t anselmo in the morning (EYE-CAN CLOSING MACHINE OPERATOR) to steady your nerves or to get rid of a hangover? 0 08/14/2024 CAGE Questionnaire Score 0 025 Utilities Answer Date Recorded In the past 12 months has th [employer], gas, oil, or water [employer] threatened to shut off services in your [...] pt for more information. Best contact number: [phone] (mobile) Optimal time of day to reach caller: ANYTIME Additional comments/information from caller: None Note: Please do not reply to this message. Follow-up communication and further actions as a result of this message need to be communicated with the patient directly, if the patient is not active onMyChart. If the patient is active on MyChart, they will receive notification of the communication/outcome via [employer]. documented in this encounter Plan of Treatment Upcoming Encounters Date Type Department Care Team (Late st Contact Info) Description 10/07/2024 12:50 PM EDT Office Visit [facility] Otolaryngology [address], [address]rd [place] [address] Chris Pepe MD [address] [place] [address] 10/07/2024 4:00 PM EDT Appointment Cardiac Imaging [address] [place] [address] 10/14/2024 11:00 AM EDT Office Visit [facility] Medicine Specialties [address], 2nd [place] [address] Cristian Zimmer MD [address] [place] [address] 10/18/2024 7:40 AM EDT Office Visit [facility] Internal Medicine [address], [address]rd [place] [address] Alisa Kunz, [address] [place] [address] 10/25/2024 10:00 AM EDT Office Visit [facility] Nephrology, Bone & Mineral Metabolism [address] [facility], [address] [place] [address] Bryon Brandon MD [address] [place] [address] 10/27/2024 1:40 PM EDT Office Visit [facility] Endocrinology [address] [place] [address] CortesAnne-Marie houston L, DIRECTOR OF PHYSIOTHERAPY SERVICES [address] [facility] 125 [place] [address] 02/02/2025 8:40 AM EST Office Visit [facility] Internal Medicine [address], [address]rd [place] [address] Alisa Kunz, [address] [facility] 304 [place] [address] documented as of this encounter [...] documented as of this encounter Care Teams Tank Builder And Erector Relationship Specialty Start Date End Date Alisa Kunz DO [address] [place] [address] PCP - General Internal Medicine 03/13/21 Kodi Bustos DO [address] [address] Surgeon Cardiothoracic Surgery 11/06/22 Sujit Arriola MD [address] [place] [address] Consulting Physician Pulmonary Disease 11/06/22 Sujit Reyes MD [address] [place] [address] Referring Physician 12/04/22 Patricia Yañez LPN [facility] TCM Nurse 08/25/24 documented as of this encounter
--- OUTSIDE RECORDS SUMMARY | 2024-10-04 10:32 | XMS_ITS | Encounter Summary ---
Author Organization [facility] Address [address] [place] [address] Care Team Providers Care Greige Goods Examiner Name Role Phone Alisa Kunz DO Primary Care Provider [phone] Kodi Bustos DO Unavailable [phone] Sujit Arriola MD Unavailable [phone] Sujit Reyes MD Unavailable [phone] Patricia Yañez LPN Unavailable Unavailab le Reason for Visit * Reason Onset Date Comments Med Refill 08/27/2024 Encounter Details Date Type Department Care Team (Late st Contact Info) Description 08/27/2024 Refill [facility] Medicine Specialties [address]nd [place] [address] Ruthie Moy MD [address] [place] [phone] Systemic lupus erythematosus (SLE) in adult (CMS/[facility]) Social History Tobacco Use Types Packs/Day Years [...] often do you attend chur ch or roman catholic services? 1 to 4 [...] a senior care (including now)? No 05/27/2024 Humiliation, Afraid, Rape, [...] in a senior care (including now)? No 08/25/2024 CAGE ASSESSMENT Answer [...] drink first t anselmo in the morning (EYE-RESEARCH ELECTRICIAN) to steady your nerves or to get rid of a hangover? 0 08/14/2024 CAGE Questionnaire Score 0 025 Utilities Answer Date Recorded In the past 12 months has th e [employer], gas, oil, or water company threatened [...] Description 10/07/2024 12:50 PM EDT Office [facility]ology [address] 3rd [place] [address] Chris Pepe MD [address] [place] [address] 10/07/2024 4:00 PM EDT Appointment Cardiac Imaging [address] [place] [address] 10/14/2024 11:00 AM EDT [facility] Medicine Specialties [address] [place] [address] Cristian Zimmer MD [address] [place] [address] 10/18/2024 7:40 AM EDT Office Visit [facility] Internal Medicine [address], 3rd [place] [address] Alisa Kunz, DO [address] [place] [address] 10/25/2024 10:00 AM EDT Office Visit [facility] Nephrology, Bone & Mineral Metabolism [address] [facility], [address] [place] [address] Bryon Brandon MD [address] [place] [address] 10/27/2024 1:40 PM EDT Office Visit [facility] Endocrinology [address] [place] [address] Anne-Marie Kolb L, REFRIGERATOR TESTER [address] [facility] 125 [place] [address] 02/02/2025 8:40 AM EST Office Visit [facility] Internal Medicine [address], 3rd [place] [address] Alisa Kunz, DO [address] [place] [address] documented as of this encounter Visit Diagnoses Diagnosis Systemic lupus erythematosus (SLE) in adult (CMS/[facility]) documented in this encounter Additional Health Concerns Assessment Noted Time PHQ-9 Depression Total Score: 8 07/22/19 25 9:23 AM EDT A fall risk assessment has been complete d for the patient 08/04/2024 10:41 AM EDT A Body Mass Index follow-up plan has been documented for the patient 08/24/2024 2:26 PM EDT documented as of this encounter Care Teams Greige Goods Examiner Relationship Specialty Start Date End Date Alisa Kunz DO [address] [place] [address] PCP - General Internal Medicine 03/13/21 Kodi Bustos DO [address] [address] Surgeon Cardiothoracic Surgery 11/06/22 Sujit Arriola MD [address] [place] [address] Consulting Physician Pulmonary Disease 11/06/22 Sujit Reyes MD [address] [place] [address] Referring Physician 12/04/22 Patricia Yañez LPN [facility] TCM Nurse 08/25/24 documented as of this encounter
--- OUTSIDE RECORDS SUMMARY | 2024-10-04 10:32 | XMS_ITS | Encounter Summary ---
Author Organization [facility] Address [address] [place] [address] Care Team Providers Care Track Worker Name Role Phone Alisa Kunz DO Primary Care Provider [phone] Kodi Bustos DO Unavailable [phone] Sujit Arriola MD Unavailable [phone] Sujit Reyes MD Unavailable [phone] Encounter Details Date Type Department Care [...] often do you attend chur ch or faith services? 1 to 4 times per year [...] Recorded Patient Health Questionnaire-2 Score 0 08/04/2024 [facility] of Occupat ional Health - Occupational [...] in a senior living (including now)? No 08/15/2024 CAGE ASSESSMENT Answer [...] drink first t anselmo in the morning (EYE-ESCALATOR OPERATOR) to steady your nerves or to get rid of a hangover? 0 08/14/2024 CAGE Questionnaire Score 0 025 Utilities Answer Date Recorded In the past 12 months has th e [employer], gas, oil, or water company threatened to [...] Description 10/07/2024 12:50 PM EDT [facility] [address] 3rd [place] [address] Chris Pepe MD [address] [place] [address] 10/07/2024 4:00 PM EDT Appointment Cardiac Imaging [address] [place] [address] 10/14/2024 11:00 AM EDT [facility] Medicine Special[facility] [address] [place] [address] Cristian Zimmer MD [address] [place] [address] 10/18/2024 7:40 AM EDT Office Visit [facility] Internal Medicine [address], 3rd [place] [address] Alisa Kunz, DO [address] [place] [address] 10/25/2024 10:00 AM EDT Office Visit [facility] Nephrology, Bone & Mineral Metabolism [address] [facility], [address] [place] [address] Bryon Brandon MD [address] [place] [address] 10/27/2024 1:40 PM EDT Office Visit [facility] Endocrinology [address] [place] [address] Anne-Marie Kolb L, CASE THERAPIST [address] [place] [address] 02/02/2025 8:40 AM EST Office Visit [facility] Internal Medicine [address], 3rd [place] [address] Alisa Kunz, DO [address] [place] [address] documented as of this encounter [...] documented as of this encounter Care Teams Track Worker Relationship Specialty Start Date End Date Alisa Kunz DO [address] [place] [address] PCP - General Internal Medicine 03/13/21 Kodi Bustos DO [address] [address] Surgeon Cardiothoracic Surgery 11/06/22 Sujit Arriola MD [address] [place] [address] Consulting Physician Pulmonary Disease 11/06/22 Sujit Reyes MD [address] [place] [address] Referring Physician 12/04/22 documented as of this encounter
--- OUTSIDE RECORDS SUMMARY | 2024-10-04 10:32 | XMS_ITS | Encounter Summary ---
Author Organization [facility] Address [address] [place] [address] Care Team Providers Care Surveyor Mine Name Role Phone Alisa Kunz DO Primary Care Provider [phone] Kodi Bustos DO Unavailable [phone] Sujit Arriola MD Unavailable [phone] Sujit Reyes MD Unavailable [phone] Patricia Yañez LPN Unavailable Unavailab Zee Lr DO Unavailable [phone] Reason for Visit * Reason Comments TCM Call Encounter Details Date Type Department Care Team (Late st Contact Info) Description 08/25/2024 Patient Outreach [facility] [address], [address] [place] [address] Patricia Yañez LPN [facility] TCM Call Social History [...] How often do you attend [facility] or jainism services? 1 to 4 times per year 08/30/2022 Do you belong to any clubs o r organizations such as buddhism groups, unions, fraternal or athletic groups, or [...] 0 09/08/2024 [facility] [place] of Occupat ional Health - Occupational Stress [...] drink first t anselmo in the morning (EYE-FLATWORK FINISHER) to steady your nerves or to get rid of a hangover? 0 08/14/2024 CAGE Questionnaire Score 0 025 Utilities Answer Date Recorded In the past 12 months has th e [employer], gas, oil, or water company threatened to [...] Not difficult at all 09/08/2024 11:19 AM EDJoni Valiente y * Question Answer Date of Assessment Author 1. Wish to be (Past 1 Month) No 025 8:00 AM Sunny Orr RN 2. Non-Specific Active Suici dillon Thoughts (Past 1 Month) No 09/15/2024 8:00 AM Flora Orr RN 6. Suicidal Behavior (Lifetime) No 8:00 AM Sunny Orr RN documented as of this encounter Miscellaneous Notes * Progress Notes - Patricia Yañez LPN - 08/25/2024 12:26 PM EDT Admit Date: 08/14/2024 Discharge Date: 08/24/2024 Hospital Service: [facility] Discharge Diagnosis: Acute on chronic hypoxic respiratory [...] Office Visit [facility] Otolaryngology [address] [place] [address] Chris Pepe MD [address] [place] [address] 10/07/2024 4:00 PM EDT Appointment Cardiac Imaging [address] [place] [address] 10/14/2024 11:00 AM EDT Office Visit [facility] Medicine Specialties [address] [place] [address] Cristian iZmmer MD [address] [place] [address] 10/18/2024 7:40 AM EDT Office Visit [facility] Internal Medicine [address] [place] [address] Alisa Kunz L, DO [address] [place] [address] 10/25/2024 10:00 AM EDT Office Visit [facility] Nephrology, Bone & Mineral Metabolism [address] [facility], [address] [place] [address] Bryon Brandon MD [address] [place] [address] 10/27/2024 1:40 PM EDT Office Visit [facility] Endocrinology [address] [place] [address] Anne-Marie Kolb L, BENEFITS SPECIALIST [address] [facility] [address] [place] [address] 02/02/2025 8:40 AM EST Office Visit [facility] Internal Medicine [address] [place] [address] Alisa Kunz L, DO [address] [place] [address] documented as of this encounter [...] documented as of this encounter Care Teams Surveyor Mine Relationship Specialty Start Date End Date Alisa Kunz DO [address] [place] [address] PCP - General Internal Medicine 03/13/21 Kodi Bustos, DO [address] [address] Surgeon Cardiothoracic Surgery 11/06/22 Sujit Arriola MD [address] [place] [address] Consulting Physician Pulmonary Disease 11/06/22 Sujit Reyes MD [address] [place] [address] Referring Physician 12/04/22 Patricia Yañez LPN [facility] TCM Nurse 08/25/24 Zee Lazar DO [address] [place] [phone] Resident 09/08/24 documented as of this encounter
--- OUTSIDE RECORDS SUMMARY | 2024-10-04 10:32 | XMS_ITS | Encounter Summary ---
Author Organization [facility] Address [address] [place] [address] Care Team Providers Care Baked And Graphite Inspector Name Role Phone Alisa Kunz DO Primary Care Provider [phone] Kodi Bustos DO Unavailable [phone] Sujit Arriola MD Unavailable [phone] Sujit Reyes MD Unavailable [phone] Patricia Yañez LPN Unavailable Unavailab le Encounter Details Date Type Department Care Team (Late st Contact Info) Description 08/27/2024 [facility]phone [facility] Specialties [address], [address] [place] [address] Sarah Hernadez RN CH-VASCULAR & [...] 08/30/2022 How often do you attend [facility] or confucianism services? 1 to 4 times per year [...] Recorded Patient Health Questionnaire-2 Score 0 08/04/2024 [facility] - Occupational [...] drink first t anselmo in the morning (EYE-AIR QUALITY MANAGER) to steady your nerves or to [...] [facility] Otol[facility]ology [address] [place] [address] Chris Pepe MD [address] [facility] [address] [place] [address] 10/07/2024 4:00 PM EDT Appointment Cardiac Imaging [address] [place] [address] 10/14/2024 11:00 AM EDT Office Visit [facility] Medicine Specialties [address] [place] [address] Cristian Zimmer MD [address] [facility] [address] [place] [address] 10/18/2024 7:40 AM EDT Office Visit [facility] Internal Medicine [address], [address] [place] [address] Alisa Kunz, [address] [place] [address] 10/25/2024 10:00 AM EDT Office Visit [facility] Nephrology, Bone & Mineral Metabolism [address], [address] [place] [address] Bryon Brandon MD [address] [place] [address] 10/27/2024 1:40 PM EDT Office Visit [facility] Endocrinology [address] [place] [address] Anne-Marie Kolb L, FLIGHT TECHNICIAN [address] [facility] [address] [place] [address] 02/02/2025 8:40 AM EST Office Visit [facility] Internal Medicine [address] [place] [address] Alisa Kunz, [address] [facility] [address] [place] [address] documented as of this encounter [...] documented as of this encounter Care Teams Baked And Graphite Inspector Relationship Specialty Start Date End Date Alisa Kunz DO [address] [facility] [address] [place] [address] PCP - General Internal Medicine 03/13/21 Kodi Bustos DO [address] [id number] Surgeon Cardiothoracic Surgery 11/06/22 Sujit Arriola MD [address] [place] [address] Consulting Physician Pulmonary Disease 11/06/22 Sujit Reyes MD [address] [place] [address] Referring Physician 12/04/22 Patricia Yañez LPN [facility] TCM Nurse 08/25/24 documented as of this encounter
--- OUTSIDE RECORDS SUMMARY | 2024-10-04 10:32 | XMS_ITS | Encounter Summary ---
Author Organization [facility] Address [address] [place] [address] Care Team Providers Care Senior Functional Analyst Name Role Phone Alisa Kunz DO Primary Care Provider [phone] Kodi Bustos DO Unavailable [phone] Sujit Arriola MD Unavailable [phone] Sujit Reyes MD Unavailable [phone] Patricia Yañez LPN Unavailable Unavailab le Encounter Details Date Type Department Care Team (Late st Contact Info) Description 08/27/2024 Telephone [facility] Endocrinology [address] [place] [address] Katerine Donaldson Social History Tobacco Use Types [...] week 08/30/2022 How often do you attend [facility] or oriental orthodox services? 1 to 4 [...] Recorded Patient Health Questionnaire-2 Score 0 08/04/2024 [facility] - [...] time in the past 12 m [facility], were you homeless or living in a [...] time in the past 12 m [facility], were you homeless or living in a [...] first t anselmo in the morning (EYE-CHIEF OPERATING ENGINEER) to steady your nerves or to get rid of a hangover? 0 08/14/2024 CAGE Questionnaire Score 0 025 Utilities Answer Date Recorded In the past 12 months has th [employer], gas, oil, or water company threatened to [...] highs and evening lows is attributed to howshmiya is taking her insulin. I advised to [...] 12:50 PM EDT Office Visit [facility] Otolaryngology [address] [place] [address] Chris Pepe MD [address] [place] [address] 10/07/2024 4:00 PM EDT Appointment Cardiac Imaging [address] [place] [address] 10/14/2024 11:00 AM EDT Office Visit [facility] Medicine Specialties [address] [place] [address] Cristian Zimmer MD [address] [place] [address] 10/18/2024 7:40 AM EDT Office Visit [facility] Internal Medicine [address], [address] [place] [address] Alisa Kunz DO [address] [place] [address] 10/25/2024 10:00 AM EDT Office Visit [facility] Nephrology, Bone & Mineral Metabolism [address], [address] [place] [address] Bryon Brandon MD [address] [place] [address] 10/27/2024 1:40 PM EDT Office Visit [facility] Endocrinology [address] [place] [address] Anne-Marie Kolb L, COMMUNICATIONS ATTENDANT [address] [place] [address] 02/02/2025 8:40 AM EST Office Visit [facility] Internal Medicine [address], [address] [place] [address] Alisa Kunz DO [address] [place] [address] documented as of this encounter [...] as of this encounter Care Teams Senior Functional Analyst Relationship Specialty Start Date End Date Alisa Kunz DO [address] [place] [address] PCP - General Internal Medicine 03/13/21 Kodi Bustos DO [address] [facility] [address] [place] [address] Surgeon Cardiothoracic Surgery 11/06/22 Sujit Arriola MD [address] [place] [address] Consulting Physician Pulmonary Disease 11/06/22 Sujit Reyes MD [address] [place] [address] Referring Physician 12/04/22 Patricia Yañez LPN [facility] TCM Nurse 08/25/24 documented as of this encounter
--- OUTSIDE RECORDS SUMMARY | 2024-10-04 10:32 | XMS_ITS | Data Portability ---
Author Organization [facility] & NICOLE Danielson ADMIN Address [address] [place] [id number] Care Team Providers Care Computed Tomography Technologist Name Role Phone BRUCE SIEGEL Primary Care Provider Assessment No assessment recorded. Plan of Treatment Reminders Order Date Submit Date Provider Last Modified By Organization Details Last Modified Time Details Appointments None recorded. Lab CBC w/ auto diff 2023 024 [facility], [address] [facility], [place], [address], 4 14:01:33 CMP, serum or plasma 2023 024 [facility], [address] [facility], [place], [address], 4 14:52:48 factor V mutation, blood or tissue 2023 024 [facility], [address] , [place], [address], 4 13:09:38 prothrombin (factor II) [id number] mutation, blood 2023 024 [email or web address] 6 [facility], [address] , [place], [address], 4 15:45:23 factor VIII activity, plasma 2023 024 [email or web address] 6 [facility], [address] , [place], [address], 4 08:47:49 antithrombi n activity, plasma 2023 024 NICK [facility], [address] [facility], [place], [address], 4 15:12:08 lupus anticoagula nt, plasma 2023 024 [email or web address] 6 [facility], [address] [facility], [place], [address], 4 08:47:49 anticardiol ipin igg+igm Ab, serum 2023 024 [email or web address] 6 [facility], [address] [facility], [place], [address], 4 08:47:49 protein C + protein S, functional panel, plasma 2023 024 [email or web address] [facility], [address] [place], [address], 4 08:47:50 beta-2 glycoprotei n 1 iga+igg+igm Ab, serum 2023 024 [email or web address] 6 [facility], [address] [place], [address], 4 08:47:50 Referral coumadin clinic referral 2023 024 [facility], [address] [place], [address], 5 09:13:21 home health referral [address], [address], [address]ior[address], [place], [address], 4 09:00:29 Procedures None recorded. Surgeries None [...] WBC 7.9 K/uL 4.0-10 .5 Not Available [facility] ([facility]) [address] , [place], [address], 02/09/2024 14:01:33 02/09/20 24 02/09/2024 CBC AUTO W DIFF RBC 3.2 M/mm3 4.2-6. 4 low Not Available [facility] ([facility]) [address] , [place], [address], 02/09/2024 14:01:33 02/09/20 24 02/09/2024 CBC AUTO W DIFF HGB 9.8 gm/dL 12.5-1 6.0 low Not Available [facility] ([facility]) [address] , [place], [address], 02/09/2024 14:01:33 02/09/20 24 02/09/2024 CBC AUTO W DIFF HCT 31.5 % 37.0-4 7.0 low Not Available [facility] ([facility]) [address] , [place], [address], 02/09/2024 14:01:33 02/09/20 24 02/09/2024 CBC AUTO W DIFF MCV 98.4 fL 78-100 Not Available [facility] ([facility]) [address] , [place], [address], 02/09/2024 14:01:33 02/09/20 24 02/09/2024 CBC AUTO W DIFF MCH 30.6 pg 27-31 Not Available [facility] ([facility]) [address] , [place], [address], 02/09/2024 14:01:33 02/09/20 24 02/09/2024 CBC AUTO W DIFF MCHC 31.1 g/dL 32-36 low Not Available [facility] ([facility]) [address], [place], [address], 02/09/2024 14:01:33 02/09/20 24 02/09/2024 CBC AUTO W DIFF RDW 13.0 % 11.5-1 4.0 Not Available [facility] ([facility]) [address], [place], [address], 02/09/2024 14:01:33 02/09/20 24 02/09/2024 CBC AUTO W DIFF platelet count 349 K/uL 150-45 0 Not Available [facility] ([facility]) [address], [place], [address], 02/09/2024 14:01:33 02/09/20 24 02/09/2024 CBC AUTO W DIFF MPV 9.8 fL 6-9.5 high Not Available [facility] ([facility]) [address], [place], [address], 02/09/2024 14:01:33 02/09/20 24 02/09/2024 CBC AUTO W DIFF neutrophil% 80.6 % 43-65 high Not Available [facility] ([facility]) [address], [place], [address], 02/09/2024 14:01:33 02/09/20 24 02/09/2024 CBC AUTO W DIFF lymphocyte% 8.1 % 20.5-4 5.5 low Not Available [facility] ([facility]) [address], [place], [address], 02/09/2024 14:01:33 02/09/20 24 02/09/2024 CBC AUTO W DIFF monocyte% 8.1 % 5.5-11 .7 Not Available [facility] ([facility]) [address] , [place], [address], 02/09/2024 14:01:33 02/09/20 24 02/09/2024 CBC AUTO W DIFF eosinophil% 1.5 % 0.9-2. 9 Not Available [facility] ([facility]) [address], [place], [address], 02/09/2024 14:01:33 02/09/20 24 02/09/2024 CBC AUTO W DIFF basophil% 0.4 % 0.2-1. 0 Not Available [facility] ([facility]) [address], [place], [address], 02/09/2024 14:01:33 02/09/20 24 02/09/2024 CBC AUTO W DIFF immature granulocytes % 1.3 % 0.0-0. 8 high Not Available [facility] ([facility]) [address], [place], [address], 02/09/2024 14:01:33 02/09/20 24 02/09/2024 CBC AUTO W DIFF nucleated red blood cells % 0.0 % Not Available [facility] ([facility]) [address], [place], [address], 02/09/2024 14:01:33 02/09/20 24 02/09/2024 CBC AUTO W DIFF neutrophil# 6.3 K/uL 2.2-4. 8 high Not Available [facility] ([facility]) [address] [place], [address], 02/09/2024 14:01:33 02/09/20 24 02/09/2024 CBC AUTO W DIFF lymphocyte# 0.6 cell/ mcL 1.3-2. 9 low Not Available [facility] ([facility]) [address], [place], [address], 02/09/2024 14:01:33 02/09/20 24 02/09/2024 CBC AUTO W DIFF monocyte# 0.6 cell/ mcL 0.3-0. 8 Not Available [facility] ([facility]) [address] , [place], [address], 02/09/2024 14:01:33 02/09/20 24 02/09/2024 CBC AUTO W DIFF eosinophil# 0.1 cell/ mcL 0-0.2 Not Available [facility] ([facility]) [address] , [place], [address], 02/09/2024 14:01:33 02/09/20 24 02/09/2024 CBC AUTO W DIFF basophil# 0.0 cell/ mcL 0.0-1. 0 Not Available [facility] ([facility]) [address], [place], [address], 02/09/2024 14:01:33 02/09/20 24 02/09/2024 CBC AUTO W DIFF immature gramulocytes # 0.10 K/uL Not Available [facility] ([facility]) [address], [place], [address], 02/09/2024 14:01:33 02/09/20 24 02/09/2024 CBC AUTO W DIFF nucleated red blood cells # 0.00 K/uL Not Available [facility] ([facility]) [address], [place], [address], 02/09/2024 14:01:33 02/09/20 24 02/09/2024 CBC AUTO W DIFF manual differential NO Not Available [facility] ([facility]) [address] , [place], [address], 02/09/2024 14:01:33 02/09/20 24 02/09/2024 COMP METAB OLIC PANEL sodium 136 mmol/ L 136-14 5 Not Available [facility] ([facility]) [address] , [place], [address], 02/09/2024 14:52:48 02/09/20 24 02/09/2024 COMP METAB OLIC PANEL potassium 4.5 mmol/ L 3.6-5. 0 Not Available [facility] ([facility]) [address] , [place], [address], 02/09/2024 14:52:48 02/09/20 24 02/09/2024 COMP METAB OLIC PANEL chloride 99 mmol/ L 98-107 Not Available [facility] ([facility]) [address] , [place], [address], 02/09/2024 14:52:48 02/09/20 24 02/09/2024 COMP METAB OLIC PANEL carbon dioxide 30.7 mmol/ L 21.0-3 2.0 Not Available [facility] ([facility]) [address] , [place], [address], 02/09/2024 14:52:48 02/09/20 24 02/09/2024 COMP METAB OLIC PANEL anion gap 10.8 Not Available [facility] ([facility]) [address] , [place], [address], 02/09/2024 14:52:48 02/09/20 24 02/09/2024 COMP METAB OLIC PANEL glucose 339 mg/dL 70-120 high Not Available [facility] ([facility]) [address] [place], [address], 02/09/2024 14:52:48 02/09/20 24 02/09/2024 COMP METAB OLIC PANEL BUN 19 mg/dL 7-18 high Not Available [facility] ([facility]) [address] [place], [address], 02/09/2024 14:52:48 02/09/20 24 02/09/2024 COMP METAB OLIC PANEL creatinine 1.0 mg/dL 0.6-1. 3 Not Available [facility] ([facility]) [address] , [place], [address], 02/09/2024 14:52:48 02/09/20 24 02/09/2024 COMP METAB [...] griffiths ing kiney funct ion. Not Available [facility] ([facility]) [address] , [place], [address], 02/09/2024 14:52:48 02/09/20 24 02/09/2024 COMP METAB OLIC PANEL total protein 6.8 g/dL 6.4-8. 2 Not Available [facility] ([facility]) [address] , [place], [address], 02/09/2024 14:52:48 02/09/20 24 02/09/2024 COMP METAB OLIC PANEL albumin 2.8 g/dL 3.4-5. 0 low Not Available [facility] ([facility]) [address] , [place], [address], 02/09/2024 14:52:48 02/09/20 24 02/09/2024 COMP METAB OLIC PANEL globulin 4.0 Not Available [facility] ([facility]) [address] , [place], [address], 02/09/2024 14:52:48 02/09/20 24 02/09/2024 COMP METAB OLIC PANEL alb/glob ratio 0.7 0.7-2 Not Available [facility] ([facility]) [address], [place], [address], 02/09/2024 14:52:48 02/09/20 24 02/09/2024 COMP METAB OLIC PANEL calcium 8.3 mg/dL 8.5-10 .5 low Not Available [facility] ([facility]) [address] [facility], [place], [address], 02/09/2024 14:52:48 02/09/20 24 02/09/2024 COMP METAB OLIC PANEL bilirubin total 0.30 mg/dL 0.10-1 .00 Not Available [facility] ([facility]) [address] [facility], [place], [address], 02/09/2024 14:52:48 02/09/20 24 02/09/2024 COMP METAB OLIC PANEL AST (SGOT) 28 U/L 0-37 Not Available [facility] ([facility]) [address], [place], [address], 02/09/2024 14:52:48 02/09/20 24 02/09/2024 COMP METAB OLIC PANEL ALT (SGPT) 42 U/L 0-65 Not Available [facility] ([facility]) [address] [facility], [place], [address], 02/09/2024 14:52:48 02/09/20 24 02/09/2024 COMP METAB OLIC PANEL alk phosphatase 93 U/L 46-116 Not Available [facility] ([facility]) [address] [facility], [place], [address], 02/09/2024 14:52:48 02/09/20 24 02/10/2024 FACTO R [...] activ ity has been [facility], a rm ic basis for the eleva tion has not yet been eluci dated (Br J Haema maida. 2012; 157:6 53-66 3). Perfo rmed at: [facility] [place] [address] [place] [address] Lab Direc tor: Eloisa pickens MD, Phone : [phone] Not Available [facility] ([facility]) [address] [place], [address], 02/10/2024 15:12:07 02/09/20 24 02/10/2024 ANTIT HROMB IN 3 ACTIV ITY antithrombin activity 132 % 75-135 Dire t Xa inhib itor antic oagul ants such as rivar oxaba n, apixa ban and edoxa ban will lead to spuri ously eleva ely antit hromb in activ ity level s possi nini maski ng a defic iency . Not Available [facility] ([facility]) [address] [facility], [place], [address], 02/10/2024 15:12:08 02/09/20 24 02/10/2024 ANTIT HROMB IN 3 ACTIV ITY antithrobmin antigen 96 % 72-124 Perfo rmed at: [facility] [place] [address] [place] [address] Lab Direc tor: Eloisa pickens MD, Phone : [phone] Not Available [facility] ([facility]) [address], [place], [address], 02/10/2024 15:12:08 02/09/20 24 02/10/2024 PROTE IN [...] rmed at: - [facility] [place] [address] , [place] [address] Lab Direc tor: Eloisa pickens MD, Phone : [phone] Not Available [facility] ([facility]) [address] [facility], [place], [address], 02/10/2024 15:12:11 02/09/20 24 02/10/2024 BETA- 2 [...] b Haem 2006; 4:295 -306. Not Available [facility] ([facility]) [address] [facility], [place], [address], 02/10/2024 15:12:12 02/09/20 24 02/10/2024 BETA- 2 [...] -306. Perfo rmed at: CB - [facility] víctor [address] [facility], [place] [address] Lab Direc tor: Wing castellano PhD, Phone : [phone] Not Available [facility] ([facility]) [address], [place], [address], 02/10/2024 15:12:12 02/09/20 24 02/10/2024 BETA- 2 [...] b Haem 2006; 4:295 -306. Not Available [facility] ([facility]) [address], [place], [address], 02/10/2024 15:12:12 02/09/20 24 02/10/2024 PROTE IN [...] Perfo rmed at: - [facility] [place] [address] [facility] [place] [address] Lab Direc tor: Eloisa pickens MD, Phone : [phone] Not Available [facility] ([facility]) [address] [facility], [place], [address], 02/10/2024 17:10:27 02/09/20 24 02/10/2024 CARDI OLIPI N AB IGM anticardioli pin Ab, IgM <9 mpl_U /mL 0-12 Negat steven: <13 Indet ermin ate: 13 - 20 Low-M ed Posit steven: >20 - 80 High Posit steven: >80 Perfo rmed at: - [facility] [address] [place] [address] Lab Direc tor: Wing castellano PhD, Phone : [phone] Not Available [facility] ([facility]) [address] [place], [address], 02/10/2024 17:10:28 02/09/20 24 02/10/2024 CARDI OLIPI N AB IGG anticardioli pin Ab, IgG <9 gpl_U /mL 0-14 Negat steven: <15 Indet ermin ate: 15 - 20 Low-M ed Posit steven: >20 - 80 High Posit steven: >80 Perfo rmed at: - [facility] n [address] [facility], [place] [id number] Lab Direc tor: Wing castellano PhD, Phone : [phone] Not Available [facility] ([facility]) [address] [facility], [place], [address], 02/10/2024 17:10:29 02/09/20 24 02/11/2024 LUPUS ANTIC OAGUL ANT PTT-la 60.2 sec 0.0-43 .5 high Not Available [facility] ([facility]) [address] [facility], [place], [address], 02/11/2024 13:12:04 02/09/20 24 02/11/2024 LUPUS ANTIC OAGUL ANT drvvt 50.8 sec 0.0-47 .0 high Not Available [facility] ([facility]) [address] [facility], [place], [address], 02/11/2024 13:12:04 02/09/20 24 02/11/2024 LUPUS ANTIC [...] rmed at: - [facility] [place] [address] [place] [address] Lab Direc tor: Eloisa pickens MD, Phone : [phone] Not Available [facility] ([facility]) [address] [facility], [place], [address], 02/11/2024 13:12:04 02/09/20 24 02/11/2024 LUPUS ANTIC OAGUL ANT PTT-la 60.2 sec 0.0-43 .5 high Not Available [facility] ([facility]) [address] [facility], [place], [address], 02/11/2024 13:12:05 02/09/20 24 02/11/2024 LUPUS ANTIC OAGUL ANT drvvt 50.8 sec 0.0-47 .0 high Not Available [facility] ([facility]) [address] [facility], [place], [address], 02/11/2024 13:12:05 02/09/20 24 02/11/2024 LUPUS ANTIC [...] rmed at: - [facility] [place] [address] [place] [address] Lab Direc tor: Eloisa pickens MD, Phone : [phone] Not Available [facility] ([facility]) [address] [place], [address], 02/11/2024 13:12:05 02/09/20 24 02/11/2024 LUPUS ANTIC OAGUL ANT PTT-la mix 54.4 sec 0.0-40 .5 high [facility]: [facility] [place] [address] [place] [address] Lab Direc tor: Eloisa pickens MD, Phone : [phone] Not Available [facility] ([facility]) [address] [place], [address], 02/11/2024 13:12:05 02/09/20 24 02/11/2024 LUPUS ANTIC OAGUL ANT PTT-la 60.2 sec 0.0-43 .5 high Not Available [facility] ([facility]) [address] [place], [address], 02/11/2024 13:12:06 02/09/20 24 02/11/2024 LUPUS ANTIC OAGUL ANT hexagonal phase phospholipid 5 sec 0-11 Perfo rmed at: [facility] [place] [address] [place] [address] Lab Direc tor: Eloisa pickens MD, Phone : [phone] Not Available [facility] ([facility]) [address] [place], [address], 02/11/2024 13:12:06 02/09/20 24 02/11/2024 LUPUS ANTIC OAGUL ANT drvvt 50.8 sec 0.0-47 .0 high Not Available [facility] ([facility]) [address] [place], [address], 02/11/2024 13:12:06 02/09/20 24 02/11/2024 LUPUS ANTIC [...] oagul ant thera py. Perfo rmed at: [facility] [address] [place] [address] Lab Direc tor: Eloisa pickens MD, Phone : [phone] Not Available [facility] ([facility]) [address] [place], [address], 02/11/2024 13:12:06 02/09/20 24 02/11/2024 LUPUS ANTIC OAGUL ANT PTT-la mix 54.4 sec 0.0-40 .5 high Perfo rmed at: [facility] [place] [address] [place] [address] Lab Direc tor: Eloisa pickens MD, Phone : [phone] Not Available [facility] ([facility]) [address] [place], [address], 02/11/2024 13:12:06 02/09/20 24 02/11/2024 LUPUS ANTIC OAGUL ANT PTT-la 60.2 sec 0.0-43 .5 high Not Available [facility] ([facility]) [address] [place], [address], 02/11/2024 13:12:08 02/09/20 24 02/11/2024 LUPUS ANTIC OAGUL ANT hexagonal phase phospholipid 5 sec 0-11 Perfo rmed at: [facility] [place] [address] [place] [address] Lab Direc tor: Eloisa pickens MD, Phone : [phone] Not Available [facility] ([facility]) [address] [facility], [place], [address], 02/11/2024 13:12:08 02/09/20 24 02/11/2024 LUPUS ANTIC OAGUL ANT drvvt 50.8 sec 0.0-47 .0 high Not Available [facility] ([facility]) [address] [facility], [place], [address], 02/11/2024 13:12:08 02/09/20 24 02/11/2024 LUPUS ANTIC OAGUL ANT drvvt mix 39.6 sec 0.0-40 .4 Perfo rmed at: - [facility] [address] [place] [address] Lab Direc tor: Eloisa pickens MD, Phone : [phone] Not Available [facility] ([facility]) [address] [place], [address], 02/11/2024 13:12:08 02/09/20 24 02/11/2024 LUPUS ANTIC [...] at: BN - [facility] [place] [address] [place], [place] [address] Lab Direc tor: Eloisa pickens MD, Phone : [phone] Not Available [facility] ([facility]) [address], [place], [address], 02/11/2024 13:12:08 02/09/20 24 02/11/2024 LUPUS ANTIC OAGUL ANT PTT-la mix 54.4 sec 0.0-40 .5 high Perfo rmed at: BN [facility] [address] [place] [address] Lab Direc tor: Eloisa pickens MD, Phone : [phone] Not Available [facility] ([facility]) [address] [place], [address], 02/11/2024 13:12:08 02/09/20 24 02/16/2024 FACTO R [...] Facto r V Leide n (PMID : [id number]). Ad ditio nal risk facto rs [...] ders to discu ss resul ts at [phone]- GENE (2843 ). . Test Detai ls: Varia nt brendan zed: c.*97 G>A, previ ously refer red to as G2021 0 A . Metho ds/Li mitat ions: DNA brendan sis of the F2 gene (NM_0 27633 .5) was perfo rmed by P CR [...] e say cteri stics deter mined by [employer] rp. It has not been clear ed or appro juan manuel by the Food and Drug Admin istra tion. . Refer ences : Jose Tsang, Javier RECINOS, David Noonan, Dot HIGGINS, Hung in ; [facility] Pro fessi onal Pract ice and Guide lines Commi ttee. Adden dum: Monster montgomery e of Medic al Rm ics conse nsus state ment on facto r V Leide n muta tion testi ng. Rm Med. 2020May 12. doi: 10.10 38/s4 1436- 021-0 110 8-x. PMID: 45961 767. . Saumya scruggs JL. Proth rombi [...] Medic al Rm ics and Genom ics ([facility] ). Rm Med. 2018 Feb;2 0(12) :148 9-149 8. doi: 10.10 38/s4 1436- 018-0 322-z . Epub 2017Dec 12. PMID: 29398 698. Not Available [facility] ([facility]) [address] [facility], [place], [address], 02/16/2024 10:08:44 02/09/20 24 02/16/2024 FACTO R II, DNA BRENDAN SIS reviewed by: Syd mckeon Techn ical [place] nent perfo rmed at [facility] rp RTP Profe harry al [place] nent perfo rmed by: . Alexia Santiago, Ph.D. , [facility] Direc tor, Molec ular Rm ics [address] [facility] [address] Perfo rmed at: TG - [facility] rp RTP [address] [facility] , [place] [address] Lab Direc tor: Aicha Silver [facility] , Phone : [phone] Not Available [facility] ([facility]) [address] [facility], [place], [address], 02/16/2024 10:08:44 02/09/20 24 02/16/2024 FACTO R [...] Facto r V Leide n (PMID : [id number]). Addit ional risk facto rs inclu [...] ders to discu ss resul ts at [phone]- GENE (4363 ). . Test Detai ls: Varia nt Brendan zed: c.160 1G>A (p. Arg53 4Gln) , refer red to as Facto r V Leide n . Metho ds/Li mitat ions: DNA brendan sis of the F5 gene (NM_0 62171 .5) was perfo rmed by PCR ampli [...] e say cteri stics deter mined by [employer] r[facility]. It has not been clear ed or appro juan manuel by the Food and Drug Admin istra tion. . Refer ences : Jose S, Javier noonan [place], David houston R, Dot WW, Hung in JH; [facility] Profe ssion al Pract ice and Guide lines Commi ttee. Adden dum: Monster St ge of Medic al Rm ics conse nsus state ment on facto r V Leide n mutat ion testi ng. Rm Med. 2020May 12. doi: 10.10 38/s4 1436- 021-0 1108- x. PMID: 95741 767. . Saumya VILLALTA. Facto r V Leide n Throm bophi barrie. 1998July 21 (Upda ely 2017Mar 13). In: Kwadwo MP, Howard sutton HH, Heydi RA, et al., inderjitito rs. GeneR tawanna s(R) (Inte rnet) . Ulysses mackey ([place]): Unive rsity of [place] Ulysses mackey; 1991- 2020. Avail able from: https ://ww w.ncb i.nlm .nih. gov/b ooks/ NBK13 68/ . Ck S, Javier r [place], Edgar X, Ceasar B, Spect or EB, Jennifer P, Wendy rds CS; [facility] Labor atory Quali ty Assur ance Commi ttee. Venou s throm boemb olism labor atory testi ng (fact or V Leide n and facto r II c.*97 G>A), 2018 updat e: a techn ical stand juana of the Monster St ge of Medic al Rm ics and Genom ics ([facility] ). Rm Med. 2018 Feb;2 0(12) :1489 -1498 . doi: 10. 38/s4 1436- 018-0 322-z . Epub 2017Dec 12. PMID: 44636 698. Not Available [facility] ([facility]) [address], [place], [address], 02/16/2024 13:09:38 02/09/20 24 02/16/2024 FACTO R V LEIDE N MUTAT ION reviewed by: SYD Mckeon Techn ical [place] nent perfo rmed at [facility] RTP Profmiya mcdonald al [place] nent perfo rmed by: . Alexia Santiago, Ph.D. , [facility] Dire tor, Molec ular Rm ics [address] [facility] [address] Perfo rmed at: TG - [facility]p RTP [address] [facility] , [place] [address] Lab [facility] tor: Aicha Silver [facility] , Phone : [phone] Not Available [facility] ([facility]) [address], [place], [address], 02/16/2024 13:09:38 Result Notes None recorded. Procedures Surgical History Date Name Laterality Status Provider Name and Address Organization Details Recorded Time vitrectomy completed Roseanne Workman [place] - [facility] & [place] 02/09/2024 12:07:46 cardiac pacemaker procedure completed Roseanne RIVERA [facility] & [place] 02/09/2024 12:08:13 cardiac catheterization completed Roseanne RIVERA [facility] & [place] 02/09/2024 12:08:20 biopsy of lung completed Roseanne RIVERA [facility] & [place] 02/09/2024 12:09:20 section completed Roseanne RIVERA [facility] & [place] 02/09/2024 12:10:10 Carpal tunnel surgery completed Roseanne RIVERA [facility] & [place] 02/09/2024 12:11:21 cardiopulmonary bypass operation completed Roseanne RIVERA [facility] & [place] 02/09/2024 12:11:59 Imaging Results None recorded. Procedure Notes None recorded. Medical Equipment None Reported. Allergies Allergen ID Allergen Name Allergen Category Reaction Reaction Severity Criticality Documentation Date Start Date Code Code System Note Provider Name and Address Organization Details Recorded Time 619107 Product containin g penicilli n (product) medicatio n Not available Not available Not available 02/09/2024 01968 8001 SNOMED ODALYS Fleming [facility] & [place] 4 12:02:48 086271 tetracycl ine medicatio n Not available Not available Not available 02/09/2024 30759 RxNorm ODALYS Fleming [facility] & [place] 4 12:02:55 329070 Keflex medicatio n Not available Not available Not available 02/09/2024 58272 7 RxNorm ODALYS Fleming [facility] & [place] 4 12:03:06 060197 codeine medicatio n Not available Not available Not available 02/09/2024 2670 RxNorm ODALYS Fleming [facility] & [place] 12:03:14 534566 morphine medicatio n Not available Not available Not available 02/09/2024 7052 RxNorm ODALYS Fleming [facility] & [place] 4 12:03:20 017800 Crestri medicatio n Not available Not available Not available 02/09/2024 00157 4 RxNorm DOALYS Fleming [facility] & [place] 4 12:03:25 Medications Name Sig Start Date [...] blood by Pulse oximetry Heart rate Systolic And Diastolic Provider Name and Address Organization Details Last Updated DateTime 4 162.56 cm 25.9 kg/m2 11926.7 3 g 97.8 [degF] 97 % 97 % 64 /min 145/78 mm[Hg] Roseanne Proctor [facility] & [place] 4 12:30:28 Social History None recorded. Functional Status Question Answer Note LastModified by Organizat ion Details LastModified Time Do you use any illicit or recreational drugs? No [email or web address] Information not available 02/09/2024 What is your level of alcohol consumption? Moderate 1-2 vodka daily [id number] Information not available 02/09/2024 Mental Status None recorded. Family History Nothing Reported. Medical History No medical history recorded. Gynecological HistoryNo gynecological history recorded. Obstetrics History GPAL:G 0 P 0 0 0 0 Immunizations Vaccine Type Date Status Note Provider Nam e and Address Organization Details Recorded Time zoster recombinant 9 completed Roseanne Workman null, [place] - [facility] - [place] [facility] [place] 02/09/2024 12:01:48 zoster recombinant 9 completed Roseanne Workman null, [place] [facility] [place] 02/09/2024 12:01:48 Influenza, high-dose, quadrivalent, PF 3 completed Roseanne Workman null, [place] [facility] [place] [facility] [place] 02/09/2024 12:01:48 Influenza, high-dose, quadrivalent, PF 2 completed Roseanne Workman [place] [facility] [place] [facility] [place] 02/09/2024 12:01:48 COVID-19, mRNA, LNP-S, PF, 30 mcg/0.3 mL dose 1 completed Roseanne Workman null, [place] [facility] [place] [facility] [place] 02/09/2024 12:01:48 COVID-19, mRNA, LNP-S, PF, 30 mcg/0.3 mL dose 1 completed Roseanne Workman null, [place] [facility] [place] [facility] [place] 02/09/2024 12:01:48 pneumococcal polysaccharide PPV23 9 completed Roseanne Workman [place] [facility] [place] [facility] [place] 02/09/2024 12:01:48 Pneumococcal conjugate PCV 13 7 completed Roseanne Workman [place] [facility] [place] [facility] [place] 02/09/2024 12:01:48 Pneumococcal conjugate PCV 13 0 completed Roseanne Workman [place] [facility] [place] [facility] [place] 02/09/2024 12:01:48 Influenza, high-dose, trivalent, PF 4 completed Roseanne Workman [place] [facility] [place] [facility] [place] 02/09/2024 12:01:48 Influenza, high-dose, trivalent, PF 1 completed Roseanne Workman [place] [facility] [place] [facility] [place] 02/09/2024 12:01:48 Influenza, high-dose, trivalent, PF 8 completed Roseanne Workman [place] [facility] [place] [facility] [place] 02/09/2024 12:01:48 Influenza, high-dose, trivalent, PF 9 completed ODALYS Fleming - [place] [facility] [place] 02/09/2024 12:01:48 Influenza, split virus, trivalent, preservative 9 completed ODALYS Fleming - [place] [facility] [place] 02/09/2024 12:01:48 Hep A, adult 9 completed Roseanne medina, ODALYS [facility] - [place] [facility] [place] 02/09/2024 12:01:48 Hep A, adult 9 completed ODALYS Fleming - [place] [facility] [place] 02/09/2024 12:01:48 Past Encounters Encounter ID Performer Location Encounter Start Date Encounter Closed Date Diagnosis/Indication Diagnosis SNOMED-CT Code Diagnosis ICD10 Code Diagnosis Note [id number] Yue Brown PA-C [facility] Oncology and Hematolog y [address] [facility] [address] [place] [address] 02/09/2024 11:34:59 02/09/2024 14:48:17 Thrombosis 564814232 I82.90 Patient developed dyspnea and went to the [facility] ED on February 02, 2024 for [...] a history of lupus and follows with Rheumatoctavio oshea. 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 Will schedule follow-up with [facility] for monitoring . Muscle weakness 18707498 M62.81 Patient is using a walker and would benefit from home health physical therapy. Will order. Difficulty managing medication 740642551 Z73.89 Patient states she has trouble managing her medication s and gets confused easily. Will order home health for medication management . Systemic l upus erythematosus 27261319 M32.9 Patient has a history of lupus and follows with Shady oshea. Health Concerns Section Related Observation LastModified by Organization Detai ls LastModified Time None Recorded Concern Status LastModified by Organization Details LastModified Time None Recorded Advance Directives Directive None Recorded Payers Insurance Date Sequence Insurance Name Policy Number Policy Byrne Covered Member ID Byrne Member ID Guarantor Name 03/08/2024 1 [place] [employer] (MEDICARE REPLACEMENT/A DVANTAGE - PPO) [id number] Michelle Felipe [id number] Michelle Felipe 02/09/2024 1 [facility] (MEDICARE REPLACEMENT/A DVANTAGE - HMO) Michelle Felipe [id number] Michelle Felipe OBGyvíctor Episode No OBEpisode recorded.
--- OUTSIDE RECORDS SUMMARY | 2024-10-04 10:32 | XMS_ITS | Encounter Summary ---
Author Organization [facility] Address [address] [place] [address] Care Team Providers Care Plastic Boat Patcher Name Role Phone Alisa Kunz DO Primary Care Provider [phone] Kodi Bustos DO Unavailable [phone] Sujit Arriola MD Unavailable [phone] Sujit Reyes MD Unavailable [phone] Patricia Yañez LPN Unavailable Unavailab Zee Lr DO Unavailable Reason for Visit * Reason Onset Date Comments HCN Clinical Concern/Question 08/30/2024 Encounter Details Date Type Department Care Team (Late st Contact Info) Description 08/30/2024 Telephone [facility] Internal Medicine [address], [address]rd [place] [address] Alisa Kunz DO [address] [place] [address] HCN Clinical Concern/Question Social History [...] often do you attend chur ch or anabaptism services? 1 to 4 times per year 08/30/2022 Do you belong to any clubs o r organizations such as episcopalian groups, unions, fraternal or athletic groups, or [...] 09/08/2024 [facility] - [...] in the past 12 m [facility], were you homeless or living in [...] in the past 12 m [facility], were you homeless or living in a halfway (including now)? No 09/17/2024 CAGE ASSESSMENT Answer [...] drink first t anselmo in the morning (EYE-MEAT GRADING MACHINE OPERATOR) to steady your nerves or to get rid of a hangover? 0 08/14/2024 CAGE Questionnaire Score 0 025 Utilities Answer Date Recorded In the past 12 months has th [employer], gas, oil, or water [employer] threatened to shut off services in your [...] Not at all 09/08/2024 11 :19 AM Shashank Barreto Feeling bad about yourself - or that you are a failure or have let yourself or your family down Not at all 09/08/2024 11:19 AM Shashank Gutierrez Trouble concentrating on thi ngs, such as reading the newspaper or watching television Not at all 09/08/2024 11:19 AM Shashank Barreto Moving or speaking so slowly that other [...] Author No Risk Indicated 09/15/2024 8:00 AM Sunny Orr, EVITA * If you checked off any problems on this questionnaire so far, Question Answer Date of Assessment Author How difficult have these problems made it for you to do your work, take care of things at home, or get along with other people? Not difficult at all 09/08/2024 11:19 AM Joni Barreto * Question Answer Date of Assessment Author 1. Wish to be (Past 1 Month) No 025 8:00 AM Sunny Orr, EVITA 2. Non-Specific Active Suici dillon Thoughts (Past 1 Month) No 09/15/2024 8:00 AM Flora Orr RN 6. Suicidal Behavior (Lifetime) No 8:00 AM Sunny Orr, EVITA documented as of this encounter Miscellaneous Notes * Telephone Encounter - Alisa Kunz DO - 08/30/2024 2:30 PM EDT Thank you; just let me know, happy to put in new orders. * Telephone Encounter - Alisa Kunz DO - 08/30/2024 2:05 PM EDT Did hospital not set this up? Yes I would be fine with that. * Telephone Encounter - Alisa Kunz DO [...] Please call to advise Best contact number: [phone] (mobile) Optimal time of day to reach caller: ANYTIME Additional comments/information from caller: None Note: Please do not reply to this message. Follow-up communication and further actions as a result of this message need to be communicated with the patient directly, if the patient is not active onMyChart. If the patient is active on MyChart, they will receive notification of the communication/outcome via [employer]peas. documented in this encounter Plan of Treatment Upcoming Encounters Date Type Department Care Team (Late st Contact Info) Description 10/07/2024 12:50 PM EDT Office Visit [facility] Otolaryngology [address], [address]rd [place] [address] Chris Pepe MD [address] [place] [address] 10/07/2024 4:00 PM EDT Appointment Cardiac Imaging [address] [place] [address] 10/14/2024 11:00 AM EDT Office Visit [facility] Medicine Specialties [address]nd [place] [address] Cristian Zimmer MD [address] [place] [address] 10/18/2024 7:40 AM EDT Office Visit [facility] Internal Medicine [address], [address]rd [place] [address] Alisa Kunz L, DO [address] [place] [address] 10/25/2024 10:00 AM EDT Office Visit [facility] Nephrology, Bone & Mineral Metabolism [address] [facility] [address] [facility], [address] [place] [address] Bryon Brandon MD [address] [place] [address] 10/27/2024 1:40 PM EDT Office Visit [facility] Endocrinology [address] [place] [address] Anne-Marie Kolb, CAN PILER [address] [place] [address] 02/02/2025 8:40 AM EST Office Visit [facility] Internal Medicine [address], [address]rd [place] [address] Alisa Kunz DO [address] [facility] [address] [place] [address] documented as of this encounter [...] documented as of this encounter Care Teams Plastic Boat Patcher Relationship Specialty Start Date End Date Alisa Kunz DO [address] [address] PCP - General Internal Medicine 03/13/21 Kodi Bustos, [address] [address] Surgeon Cardiothoracic Surgery 11/06/22 Sujit Arriola MD [address] [place] [address] Consulting Physician Pulmonary Disease 11/06/22 Sujit Reyes MD [address] [place] [address] Referring Physician 12/04/22 Patricia Yañez LPN [facility] TCM Nurse 08/25/24 Zee Lazar DO [address] [place] [address] Resident 09/08/24 documented as of this encounter
--- OUTSIDE RECORDS SUMMARY | 2024-10-04 10:32 | XMS_ITS | Encounter Summary ---
Author Organization Healthcare Address [address] [place] [address] Care Team Providers Care Advertising Copy Writer Name Role Phone Alisa Kunz DO Primary Care Provider Kodi Bustos DO Unavailable [phone] Sujit Arriola MD Unavailable [phone] Sujit Reyes MD Unavailable [phone] Patricia Yañez LPN Unavailable Unavailab le Encounter Details Date Type Department Care Team (Late st Contact Info) Description 08/25/2024 Telephone [facility] Medicine Specialties [address] [place] [address] Noris Yee MD [address] [place] [address] Social History Tobacco Use Types [...] often do you attend chur ch or zoroastrian services? 1 to 4 times [...] Recorded Patient Health Questionnaire-2 Score 0 08/04/2024 [facility] ional [facility] [...] drink first t anselmo in the morning (EYE-REGIONAL EDUCATION COORDINATOR) to steady your nerves or to get rid of a hangover? 0 08/14/2024 CAGE Questionnaire Score 0 025 Utilities Answer Date Recorded In the past 12 months has th e [employer], gas, oil, or water company threatened to [...] for 30day supply with 5 refills to [facility] pharmacy. * Progress Notes - Kayla Ceja PharmD - 08/25/2024 12:23 PM EDT Refill request does not meet protocol. Sending to clinic for review. Additional info: Dosing clarification needed documented in this encounter Plan of Treatment Upcoming Encounters Date Type Department Care Team (Late st Contact Info) Description 10/07/2024 12:50 PM EDT Office Visit [facility] Otolaryngology [address]rd [place] [address] Chris Pepe MD [address] [place] [address] 10/07/2024 4:00 PM EDT Appointment Cardiac Imaging [address] [place] [address] 10/14/2024 11:00 AM EDT Office Visit [facility] Medicine Specialties [address] [place] [address] Cristian Zimmer MD [address] [place] [address] 10/18/2024 7:40 AM EDT Office Visit [facility] Internal Medicine [address]rd [place] [address] Alisa Kunz, [address] [place] [address] 10/25/2024 10:00 AM EDT Office Visit [facility] Nephrology, Bone & Mineral Metabolism [address] [facility], [address] [place] [address] Bryon Brandon MD [address] [place] [address] 10/27/2024 1:40 PM EDT [facility] [address] [place] [address] Anne-Marie Kolb L, DINKEY OPERATOR SLATE [address] [place] [address] 02/02/2025 8:40 AM EST Office Visit [facility] Internal Medicine [address]rd [place] [address] Alisa Kunz DO [address] [place] [address] documented as of this encounter Visit Diagnoses Diagnosis Systemic lupus erythematosus (SLE) in adult ([facility])- Primary documented in this encounter Additional Health Concerns Assessment Noted Time PHQ-9 Depression Total Score: 8 07/22/19 9:23 AM EDT A fall risk assessment has been complete d for the patient 08/04/2024 10:41 AM EDT A Body Mass Index follow-up plan has been documented for the patient 08/24/2024 2:26 PM EDT documented as of this encounter Care Teams Advertising Copy Writer Relationship Specialty Start Date End Date Alisa Knuz DO [address] [place] [address] PCP - General Internal Medicine 03/13/21 Kodi Bustos DO [address] [address] Surgeon Cardiothoracic Surgery 11/06/22 Sujit Arriola MD [address] [place] [address] Consulting Physician Pulmonary Disease 11/06/22 Sujit Reyes MD [address] [place] [address] Referring Physician 12/04/22 Patricia Yañez LPN [facility] TCM Nurse 08/25/24 documented as of this encounter
--- OUTSIDE RECORDS SUMMARY | 2024-10-04 10:33 | XMS_ITS | Encounter Summary ---
Author Organization [facility] Address [address] [place] [address] Care Team Providers Care Brim Rounder Name Role Phone Alisa Kunz Primary Care Provider [phone] Kodi Bustos DO Unavailable [phone] Sujit Arriola MD Unavailable [phone] Sujit eRyes MD Unavailable [phone] Ekaterina Gómez Unavailable Unavailable Zully Caldwell RADIAL DRILL OPERATOR Unavailable Unavailable Ekaterina Gómez Unavailable Unavailable Patricia Yañez RADIAL DRILL OPERATOR Unavailable Unavailab le Encounter Details Date Type Department Care Team (Late st Contact Info) Description 07/08/2024 Results Follow-Up [facility] Medicine Specialties [address]nd [place] [address] Lavern Shoemaker MD [address] [id number] Social History Tobacco Use Types Packs/Day Years [...] often do you attend chur ch or voodoo services? 1 to 4 times [...] Recorded Patient Health Questionnaire-2 Score 0 09/08/2024 [facility] - Occupational [...] any time in the past 12 m [facility], were you homeless or living in [...] any time in the past 12 m [facility], were you homeless or living in a chcf (including now)? No 08/25/2024 CAGE ASSESSMENT Answer [...] drink first t anselmo in the morning (EYE-EFFICIENCY MINER) to steady your nerves or to get rid of a hangover? 0 08/14/2024 CAGE Questionnaire Score 0 025 Utilities Answer Date Recorded In the past 12 months has [employer], gas, oil, or water [employer] threatened to shut off services in your [...] hopeless Not at all 08/04/2024 10:41 AM EDT Melany Ragland Patient Health Questionnaire -2 Score 0 08/04/2024 10:41 AM EDT Melany Ragland * Question Answer Date of Assessment Author Trouble falling or staying asleep, or sleeping too much Not at all 08/04/2024 10:41 AM EDT Clarisa Ragland Feeling tired or having little energy Nearly every day 07/21/2024 9:23 AM Catalino Hendrickson Poor appetite or overeating Not at all 08/04/2024 10:41 AM Clarisa Jimenez Feeling bad about yourself - or that you are a failure or have let yourself or your family down Not at all 08/04/2024 10:41 AM Clarisa Jimenez Trouble concentrating on things, such as reading the newspaper or watching television Several days 07/21/2024 9:23 AM Catalino Hendrickson Moving or speaking so slowly that other people could have noticed? Or the opposite - being so fidgety or restless that you have been moving around a lot more than usual. Not at all 08/04/2024 10:41 AM Clarisa Jimenez Thoughts that you would be better off or hurting yourself in some way Not at all 08/04/2024 10:41 AM Clarisa Jimenez Patient Health Questionnaire-9 Score 8 07/21/2024 9:23 AM Makeda Hendrickson * Calculated C-SSRS Risk Score (Lifetime/Recent) Answer Date of Assessment Author No Risk Indicated 08/24/2024 8:11 AM Kosta Pompa RN * If you checked off any problems on this questionnaire so far, Question Answer Date of Assessment Author How difficult have these problems made it for you to do your work, take care of things at home, or get along with other people? Not difficult at all 08/04/2024 10:41 AM Liu Jimenez * Question Answer Date of Assessment Author 1. Wish to be (Past 1 Month) No 025 8:11 AM Kosta Pompa RN 2. Non-Specific Active Suici dillon Thoughts (Past 1 Month) No 08/24/2024 8:11 AM Autumn Pompa RN 6. Suicidal Behavior (Lifetime) No 8:11 AM Kosta Pompa RN documented as of this encounter Plan of Treatment Upcoming Encounters Date Type Department Care Team (Late st Contact Info) Description 10/07/2024 12:50 PM EDT Office Visit [facility] Otolaryngology [address]rd [place] [address] Chris Pepe MD [address] [place] [address] 10/07/2024 4:00 PM EDT Appointment Cardiac Imaging [address] [place] [address] 10/14/2024 11:00 AM EDT Office Visit [facility] Medicine Specialties [address] [place] [address] Cristian Zimmer MD [address] [place] [address] 10/18/2024 7:40 AM EDT Office Visit [facility] Internal Medicine [address], [address]rd [place] [address] Alisa Kunz L, DO [address] [place] [address] 10/25/2024 10:00 AM EDT Office Visit [facility] Nephrology, Bone & Mineral Metabolism [address], [address] [place] [address] Bryon Brandon MD [address] [place] [address] 10/27/2024 1:40 PM EDT Office Visit [facility] Endocrinology [address] [place] [address] Anne-Marie Kolb, CARPENTER MOLD [address] [facility] [address] [place] [address] 02/02/2025 8:40 AM EST Office Visit [facility] Internal Medicine [address] [place] [address] Alisa Kunz DO [address] [place] [address] documented as of this encounter [...] documented as of this encounter Care Teams Brim Rounder Relationship Specialty Start Date End Date Alisa Kunz DO [address] [place] [address] PCP - General Internal Medicine 03/13/21 Kodi Bustos DO [address] [address] Surgeon Cardiothoracic Surgery 11/06/22 Sujit Arriola MD [address] [place] [address] Consulting Physician Pulmonary Disease 11/06/22 Sujit Reyes MD [address] [place] [address] Referring Physician 12/04/22 Ekaterina Gómez Full Fashioned Garment Knitter Forming Yardage Control Operator 07/14/24 07/14/24 Zully Caldwell LPN [employer] [address] TCM Nurse 07/16/24 08/15/24 Ekaterina Gómez Full Fashioned Garment Knitter Forming Yardage Control Operator 08/16/24 08/16/24 Patricia Yañez LPN [facility] TCM Nurse 08/25/24 documented as of this encounter
--- OUTSIDE RECORDS SUMMARY | 2024-10-04 10:33 | XMS_ITS | Clinical Summary ---
Author Organization [facility] Address [address] [place] [address] Care Team Providers Care Yard Jacker Name Role Phone Alisa Kunz DO Primary Care Provider [phone] Kodi Bustos DO Unavailable [phone] Sujit Arriola MD Unavailable [phone] Sujit Reyes MD Unavailable [phone] Patricia Yañez YARD JACKER Unavailable Unavailab Zee Lr DO Unavailable [phone] Allergies Active Allergy Reactions Criticality Noted Date [...] Tetracyclines & Related Rash Low 09/26/2014 Medications * This document contains information received from the source organization and may not represent a complete record from that organization. ezetimibe (Zetia) 10 MG tablet Take 1 tablet by mouth nightly. 021 Active metoprolol succinate XL (Toprol-XL) 25 MG 24 hr tablet Take 1 tablet by mouth every morning. 021 Active latanoprost (Xalatan) 0.005 % ophthalmic solution Administer 1 drop into both eyes nightly. Active Fluticasone-Umec lidin-Vilant (Trelegy Ellipta) 200-62.5-25 MCG/ACT aerosol powder Inhale 1 puff 1 (one) time each day in the morning. 180 each 3 024 Active cetirizine (ZyrTEC) 10 MG tablet Take 1 tablet by mouth every evening. Active levothyroxine (Synthroid, Levoxyl) 125 MCG tablet Take 1 tablet (125 mcg) by mouth 1 (one) time each day before breakfast. 90 tablet 3 Active oxygen (O2) gas Inhale 2 L [...] for a total of 80mg daily. Active aspirin 81 MG EC tablet Take 1 tablet by mouth every evening. Active warfarin (Coumadin) 5 MG tablet Take 2.5 mg on Friday and 5mg the rest of the week and follow up with your warfarin pharmacist. 30 tablet 025 Active folic acid (Folvite) 1 MG tablet Taking 1 tablet five days of the week 90 tablet 1 025 Active insulin lispro (HumaLOG KWIKPEN) 100 UNIT/ML injection penIndications:T ype 1 diabetes mellitus with hyperglycemia ([facility]/HCC) Inject 2-6 units before meals plus 1:60>150. Max tdd 30 units 30 mL 2 025 Active insulin glargine (Toujeo SoloStar) 300 UNIT/ML injection pen (1 UNIT DIAL)Indications :Type 1 diabetes mellitus with hyperglycemia (CMS/HCC) Inject 14 Units under the skin every morning. 4.5 mL 3 025 2025 Active Additional Information Patient taking differently: 6 UnitsSubcutaneous2 times daily, Reported on 09/27/2024 gabapentin (Neurontin) 300 MG capsule Take 1 capsule by mouth 2 times a day. 60 capsule 025 Active Additional Information Patient taking differently:300 mg Oral 2 times daily,1 tab in AM 2 in PM, Reported on 09/27/2024 Probiotic Product (acidophilus probiotic blend) capsule Take 1 capsule by mouth daily. Active mycophenolate (CellCept) 500 MG tabletIndication s:Systemic lupus erythematosus (SLE) in adult ([facility]) Take 2 tablets by mouth 2 times a day. 360 tablet 1 025 Active Pitavastatin Calcium (Livalo) 4 MG tabletIndication s:Type 1 diabetes mellitus with other specified complication ([facility]),Dyslip idemia Take 1 tablet by mouth daily. 90 tablet 025 Active magnesium oxide (Mag-Ox) 400 mg tablet Take 1 tablet by mouth daily. Active ferrous sulfate 324 (65 Fe) MG EC tablet Take 1 tablet by mouth daily with breakfast. Do not crush, chew, or split. Active furosemide (Lasix) 80 MG tablet Take 1 tablet by mouth daily. 30 tablet 025 2024 Active spironolactone (Aldactone) 25 MG tablet Take 0.5 tablets by mouth daily. 025 2024 Active Additional Information Patient taking differently:12.5 mg Oral Daily,Taking 1/4th tablet d/t feeling dizzy when she takes it, Reported on 09/27/2024 enoxaparin (Lovenox) 100 MG/ML solution prefilled syringe Inject 0.9 mL under the skin every evening. 5 mL 1 025 Active Additional Information Patient not taking.Reported on 09/27/2024 hydroxychloroqui ne (Plaquenil) 200 MG tabletIndication s:Systemic lupus erythematosus (SLE) in adult ([facility]) Take 1.5 tablets by mouth daily. 45 tablet 5 025 2025 Active Blood Glucose Monitoring Suppl (Blood Glucose Monitor System) w/Device kit Test blood sugars twice a day to calibrate cgm. Dx E10.65 1 kit Active glucose blood test strip Use to test blood sugars twice a day to calibrate cgm. Dx 10.65 100 each 12 Active Lancets misc Use twice a day to calibrate cgm Dx E10.65 100 each 3 Active magic mouthwash (lidocaine, diphenhydramine, Maalox 1:1:1) Swish and spit 15 mL every 4 hours as needed for mucositis. Shake Well. 2700 mL 11 Active Calcium Carb-Cholecalcif bishnu 600-200 MG-UNIT tablet Take 1 tablet by mouth every morning. 2024 Discontinued busPIRone (Buspar) 10 MG tablet Take 1 tablet by mouth 2 times a day as needed. 021 2024 Discontinued(E ntered in Error) lisinopril 20 MG tabletIndication s:Essential hypertension Take 1 tablet (20 mg total) by mouth 1 (one) time each day. Take one tablet each morning 90 tablet 3 022 2021 Discontinued Pitavastatin Calcium (Livalo) 4 MG tabletIndication s:Type 1 diabetes mellitus with other specified complication ([facility]),Dyslip idemia Take 1 tablet by mouth 1 (one) time each day. 90 tablet 3 024 2024 Discontinued(R eorder) brimonidine 0.2 % OP ophthalmic solution Administer 1 drop into both eyes daily. 10 mL 025 2024 Discontinued clobetasol (Temovate) 0.05 % cream Apply 1 Application topically 2 times a day as needed. 2024 Discontinued(E ntered in Error) Probiotic Product (acidophilus probiotic blend) capsule Take 1 capsule by mouth every morning. 2024 Discontinued(E ntered in Error) furosemide (Lasix) 40 MG tablet Take 1 tablet by mouth daily. 30 tablet 025 2024 Discontinued spironolactone (Aldactone) 25 MG tablet Take 0.25 tablets by mouth daily. 30 tablet 025 2024 Discontinued hydroxychloroqui ne (Plaquenil) 200 MG tabletIndication s:Systemic lupus erythematosus (SLE) in adult ([facility]) Take 1 tablet by mouth daily. 90 tablet 1 025 2024 Discontinued valACYclovir (Valtrex) 500 MG tabletIndication s:HSV (herpes simplex virus) infection Take 1 tablet by mouth 2 times a day for 5 doses. 5 tablet 025 2024 Discontinued(R eorder) enoxaparin (Lovenox) 60 MG/0.6ML solution prefilled syringe Inject 0.9 mL under the skin daily for 10 days. 6 mL 1 025 2024 Discontinued hydroxychloroqui ne 300 MG tablet Take 300 mg by mouth daily. 30 tablet 1 025 2024 Discontinued valACYclovir (Valtrex) 500 MG tabletIndication s:HSV (herpes simplex virus) infection Take 1 tablet by mouth 2 times a day for 5 doses. 5 tablet 025 2024 Additional Information Patient not taking.Reported on 09/27/2024 Active Problems Problem Noted Date Diagnosed Date Acute on chronic congestive heart failure, unspecified heart failure type 09/09/2024 Type 2 diabetes mellitus wit hout complication, with long-term current use of insulin 08/14/2024 Acute on chronic congestive heart failure 2024 Heart failure with preserved ejection fraction 0 08/04/2024 Atrial fibrillation 08/04/2024 Assessment & Plan (09/27/2024 2:58 PM EDT): -on coumadin, supposed to check INR at home. -requests INR check today -during last visit to discharge clinic there was confusion regarding continued coumadin management after checking INR so we reached out to established coumadin clinic and scheduled patient appointment for tomorrow. Orders: Protime-INR; Future Pulmonary hypertension 08/04/2024 Type 1 diabetes mellitus [...] been switched to warfarin. Follows with the [facility] anti-coagulation clinic closely. Coronary atherosclerosis of artery [...] From the hospital she was sent to [facility] for rehab. - Slowly improving, now [...] From the hospital she was sent to [facility] for rehab. - Slowly improving, now [...] From the hospital she was sent to [facility] for rehab. - Slowly improving: still [...] baclofen to help with muscle spasms/sleep at [facility]: switched to Robaxin 500 mg nightly [...] From the hospital she was sent to [facility] for rehab. - Slowly improving: still [...] baclofen to help with muscle spasms/sleep at [facility]: switched to Robaxin 500 mg nightly [...] From the hospital she was sent to [facility] for rehab. - Encouraged patient to contact surgeon (Dr. Ortiz) to discuss next steps and to discuss prognosis. Diastolic dysfunction 07/17/2021 Overview (01/05/2024): - Echocardiogram 11/27/2023: LVEF 55-60% with grade II diastolic dysfunction. Assessment & Plan (08/12/2023 2:51 PM EDT): HFpEF (EF 55-60% in 08/2022) CAD/AL s/p Stent + CABG (1999) CVA (2017) [...] 12/05/2020, 01/28/2022, 01/09/2023 Influenza, seasonal, injectable 12/08/2018 [facility] COVID-19 Vaccine (Purple Cap) 12+ 03/30/2020, 03/30/2020, [...] 12/2023. Colon cancer: Last colonoscopy 10/17/2020 at [facility] (Dr. Sujit Christine), personally visualized records: one [...] 12/05/2020, 01/28/2022, 01/09/2023 Influenza, seasonal, injectable 12/08/2018 [facility] COVID-19 Vaccine (Purple Cap) 12+ 03/30/2020, 03/30/2020, [...] ? Colon cancer: Last colonoscopy 10/17/2020 at [facility] (Dr. Sujit Christine), personally visualized records: one [...] panel 05/2022: The ASCVD Risk score (Rani DK, et al., 2019) failed to calculate for the following reasons: ? The patient has a prior AL or stroke diagnosis A1c: Lab Results Component [...] 12/05/2020, 12/05/2020, 01/28/2022 Influenza, seasonal, injectable 12/08/2018 [facility] COVID-19 Vaccine (Purple Cap) 12+ 03/30/2020, 03/30/2020, [...] ? Colon cancer: Last colonoscopy 10/17/2020 at [facility] (Dr. Sujit Christine), personally visualized records: one [...] - Was switched to Trelegy inhaler at [facility], refilled today 07/2021. Continues on O2 [...] the pulmonary team closely. Assessment & Plan (09/27/2024 2:58 PM EDT): -presented to ER on 09/09/24 from PCP [...] like symptoms Orders: Comprehensive metabolic panel; Future Assessment & Plan (12/26/2022 9:43 AM EDT): [...] called at 15:49, Spoke to Charge [employer] -patient has friend who will drive her [...] as she is high risk for recurrent AL/stroke. Also on Zetia. Assessment & Plan (10/10/2021 [...] as she is high risk for recurrent AL/stroke. - Repeat lipid panel ordered 03/2021 (to [...] Paroxysmal atrial fibrillation 08/08/2017 Overview (04/16/2024): - [id number] of 6. - s/p PPM - Rate control: metoprolol ER 50 mg daily - Anticoagulation: warfarin - Follows with [facility] cardiology. Hypertension 12/26/2016 Overview (12/26/2022): - Chronic, [...] patient to discuss insulin adjustments while at [facility]. Assessment & Plan (04/09/2021 4:01 PM [...] bg control Atherosclerotic heart diseas e of [place] coronary artery without angina pectoris 05/05/2012 Overview (04/16/2024): - s/p CABG in 1999. NSTEMI s/p balloon angioplasty 05/2020 at [facility]. 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 Assessment & Plan (11/24/2020 8:49 AM EDT): [...] exposed 02/18/2024 025 Cellulitis of foot 02/18/2024 5 Cellulitis of toe 02/18/2024 04/16/2024 Cellulitis 02/13/2024 03/08/2024 Cellulitis of right leg 02/12/2024 12 COPD exacerbation 01/30/2024 04/16/2024 Other dysphagia 01/29/2024 [...] been having telephone conversations with cardiology at [facility] and is currently taking 20mg lasix and [...] Was able to get patient in with [facility] ophthalmology right after our clinic appointment (where she follows regularly). - In the meantime, provided erythromycin eye ointment for bacterial conjunctivitis treatment. Assessment & Plan (05/13/2022 3:58 PM EST): - Concerning for bacterial or viral conjunctivitis vs. Scleritis. - Needs THOMPSON eye exam. - Was able to get patient in with [facility] ophthalmology right after our clinic appointment [...] bowel regimen. - Last colonoscopy performed at [facility] in Oct 2020 and unremarkable. Assessment & Plan (02/06/2022 2:48 PM EST): - Based on description more consistent with constipation. Some improvement with bowel regimen. - Last colonoscopy performed at [facility] in Oct 2020 and unremarkable. Anal fissure [...] Tongue lesion 06/15/2020 09/07/2020 Coronary artery disease 04/28/202003/2020 Arthralgia of hip 10/19/2019 12/26/2022 Elevated total [...] Doron Zhu;Status: Active Disorder of breast 01/27/2014 Hypoglycemia 08/27/2012 12/26/2022 Old myocardial infarction 05/05/2012 Encounters * This document contains information received from the source organization and may not represent a complete record from that organization. Date Type Department Care Team Description 10/02/2024 Travel 09/28/2024 Telephone [facility] Internal Medicine [address], [address] [place] [address] Alisa Kunz DO HCN Lab/home Health 09/28/2024 [facility]phone [facility] [address] [place] [id number] Anne-Marie Kolb, [employer] 09/28/2024 Results Follow-Up [facility] [address] [place] [address] June R, [employer] T[employer]OR 09/27/2024 1:20 PM EDT Office Visit [facility] [address] [place] [address] Ashley, June R, [employer]OR Pleural effusion (Primary Dx); Longstanding persistent atrial fibrillation (CMS/HCC); Dizziness and giddiness; Health care maintenance 09/27/2024 Travel 09/23/2024 Telephone [facility] Internal Medicine [address], [address] [place] [address] Alisa Kunz DO HCN - Patient Message 09/22/2024 Patient Outreach POPULATION [address], [address] [place] [id number] Patricia Yañez LPN Follow-up 09/20/2024 Telephone [facility] Endocrinology [address] [place] [address] Anne-Marie Kolb, [employer]OR 09/17/2024 Orders Only [facility] Internal Medicine [address], [address] [place] [address] Alisa Kunz, DO 09/17/2024 Patient Outreach POPULATION [address], [address] [place] [address] Patricia Yañez LPN TCM Call 09/16/2024 Telephone [facility] Internal Medicine [address], [address] [place] [phone] Alisa Kunz, 09/16/2024 Telephone [facility] Internal Medicine [address], [address] [place] [address] Alisa Kunz DO HCN Clinical Concern/Question (Low heartrate) 09/16/2024 Telephone [facility] Medicine Specialties [address] [place] [address] Charo Donaldson 09/16/2024 Telephone [facility] Endocrinology [address] [place] [address] Anne-Marie Kolb, [employer] T[employer]OR Med Refill 09/15/2024 Travel 09/14/2024 Travel 09/13/2024 Travel 09/11/2024 Travel 09/09/2024 Travel 09/09/2024 Telephone [facility] Medicine Specialties [address], [address] [place] [address] Shannen Emmanuel RN 09/09/2024 Telephone [facility] Medicine Specialties [address], [address] [place] [address] Charo Donaldson 09/09/2024 Results Follow-Up [facility] Internal Medicine [address], [address] [place] [address] Zee Lazar DO 09/08/2024 1:55 PM EDT - 09/08/2024 11:59 PM EDT Hospital Encounter [facility] Vascular Lab [address] [place] [address] Localized swelling, mass and lump, left upper limb Discharge Disposition: Home or Self Care 09/08/2024 1:36 PM EDT - 09/08/2024 1:54 PM EDT Hospital Encounter [facility] Radiology [address], [address] [place] [address] Shortness of breath Discharge Disposition: Home or Self Care 09/08/2024 11:20 AM EDT Office Visit [facility] Internal Medicine [address], [address] [place] [address] Alisa Kunz DO Shortness of breath (Primary Dx); Restless leg syndrome; Localized swelling, mass and lump, left upper limb; Sore throat; Encounter for removal of sutures 09/08/2024 Orders Only [facility] Medicine Specialties [address] [place] [address] Lavern Shoemaker MD Pleural effusion on right (Primary Dx) 09/08/2024 Telephone [facility] Internal Medicine [address], [address] [place] [address] lAisa uKnz, DO HCN - Patient Message 09/08/2024 Travel 09/07/2024 Telephone [facility] Medicine Specialties [address] [place] [address] Sadiq Osborne MBBS 09/07/2024 Telephone [facility] Medicine Specialties [address] [place] [address] Charo Donaldson 09/06/2024 Telephone [facility] Internal Medicine [address], [address] [place] [address] Alisa Kunz, 09/06/2024 Telephone [facility] Medicine Specialties [address] [place] [address] Charo Donaldson 09/06/2024 [facility] Endocrinology [address] [place] [phone] Anne-Marie Kolb, [employer] T[employer]OR Type 1 diabetes mellitus with other specified complication (CMS/HCC); Dyslipidemia 09/06/2024 Refill [facility] Endocrinology [address] [place] [address] Anne-Marie Kolb, [employer] TUTOR Type 1 diabetes mellitus with other specified complication (CMS/HCC); Dyslipidemia 09/03/2024 Telephone [facility] Internal Medicine [address], [address] [place] [address] Alisa Kunz, DO HCN Clinical Concern/Question (Please see note...) 09/03/2024 Telephone [facility] Endocrinology [address] [place] [address] Anne-Marie Kolb, [employer] LANGUAGE TUTOR 09/02/2024 Telephone [facility] Internal Medicine [address] [place] [address] Alisa Kunz, DO 09/02/2024 Telephone [facility] Endocrinology [address] [place] [address] Anne-Marie Kolb, [employer] LANGUAGE TUTOR 08/31/2024 Orders Only [facility] Internal Medicine [address] [place] [address] Alisa uKnz, DO At high risk for falls (Primary Dx); Type 2 diabetes mellitus without complication, with long-term current use of insulin; Compression fracture of T12 vertebra with routine healing, subsequent encounter; Osteoarthritis, unspecified osteoarthritis type, unspecified site; Pleural effusion 08/30/2024 Telephone [facility] Internal Medicine [address] [place] [address] Alisa Kunz L, DO HCN Clinical Concern/Question 08/30/2024 Telephone [facility] Medicine [address] [place] [address], [address] [place] [address] Alisa Kunz, DO HCN Clinical Concern/Question 08/27/2024 Telephone [facility]ology [address] [place] [address] Katerine Donaldson 08/27/2024 Refill [facility] Medicine Specialties [address] [place] [address] Ruthie Moy MD Systemic lupus erythematosus (SLE) in adult ([facility]) 08/27/2024 Telephone [facility] Medicine Specialties [address] [place] [address] Sarah Hernadez RN 08/25/2024 Patient Outreach POPULATION HEALTH [address] [facility] [address], [address] [place] [address] Patricia Yañez YARD JACKER TCM Call 08/25/2024 Telephone [facility] Internal Medicine [address], [address] [place] [address] Alisa Kunz DO HCN Clinical Concern/Question 08/25/2024 Telephone [facility] Medicine Specialties [address] [place] [address] Noris Yee MD 08/25/2024 Refill [facility] Medicine Specialties [address], [address] [place] [address] Noris Yee MD Systemic lupus erythematosus (SLE) in adult ([facility]) 08/23/2024 Travel 08/22/2024 Travel 08/21/2024 Travel 08/20/2024 Travel 08/19/2024 Travel 08/18/2024 12:57 PM EDT - 08/18/2024 1:42 PM EDT Surgery Cardiac Casing Man [address] [place] [address] Brenden Zamora MD Right heart catheterization 08/18/2024 Travel 08/17/2024 Travel 08/16/2024 Patient Outreach POPULATION HEALTH [address], [address] [place] [address] Ekaterina Gómez Sarah Link 08/15/2024 Travel 08/15/2024 Refill [facility] Internal Medicine [address], [address] [place] [address] Alisa Kunz DO 08/14/2024 3:16 PM EDT - 08/24/2024 3:19 PM EDT Hospital Encounter [facility] [address] [place] [address] Jackson Puente MD Arndt, MD Flaca Theodore John B, MD Chadha, Jagriti, MD Pleural effusion (Primary Dx); Acute on chronic congestive heart failure, unspecified heart failure type ([facility]/HCC); Shortness of breath; Systemic lupus erythematosus (SLE) in adult ([facility]) Discharge Disposition: Home or Self Care 08/14/2024 Travel 08/12/2024 Telephone [facility] Internal Medicine [address] [place] [address] Alisa Kunz, DO HCN Clinical Concern/Question 08/11/2024 Telephone [facility] Internal Medicine [address], [address] [place] [address] Alisa Kunz, DO HCN Clinical Concern/Question 08/09/2024 Telephone [facility] Vascular [facility] [address] , [address] [place] [address] Cassius Gonzales MD HCN Clinical Concern/Question 08/06/2024 Telephone [facility] Medicine Specialties [address] [place] [address] Ami Marley Edema; Shortness of Breath 08/06/2024 Telephone [facility] Endocrinology [address] [place] [address] Anne-Marie Kolb, [employer] T[employer]OR 08/06/2024 Telephone [facility] Internal Medicine [address] [place] [address] Alisa Kunz, DO HCN Clinical Concern/Question 08/06/2024 Telephone [facility] Internal Medicine [address], [address] [place] [address] Alisa Kunz, DO HCN Clinical Concern/Question 08/04/2024 2:20 PM EDT [facility] [address] [place] [address] Anne-Marie Kolb, [employer] L[employer] TUTOR Type 1 diabetes mellitus with hyperglycemia ([facility]) (Primary Dx); Neuropathy; Hyperlipidemia, unspecified hyperlipidemia type 08/04/2024 10:45 AM EDT Office Visit [facility] [address], [address] [place] [address] Cassius Gonzales MD Heart failure with preserved ejection fraction, unspecified HF chronicity (CMS/HCC) (Primary Dx); Atrial fibrillation, unspecified type (CMS/HCC); Chronic hypoxic respiratory failure; Presence of cardiac pacemaker; Heart failure, unspecified HF chronicity, unspecified heart failure type (CMS/HCC); Pulmonary hypertension (CMS/HCC) 08/04/2024 Travel 07/30/2024 4:20 PM EDT Office Visit [facility] Otolaryngology [address] [place] [address] Andra Herman MD Dysphonia (Primary Dx) 07/30/2024 Travel 07/30/2024 Telephone [facility] Otolaryngology [address], [address] [place] [address] Jarad Tsai Appointment 07/28/2024 Telephone [facility] Medicine Specialties [address], [address] [place] [address] Ami Marley A Results 07/28/2024 Patient Outreach POPULATION [facility] [address] [facility], [address] [place] [address] Zully Caldwell LPN Follow-up 07/23/2024 Telephone [facility] Internal Medicine [address], [address] [place] [address] Alisa Kunz DO HCN Clinical Concern/Question 07/21/2024 10:35 AM EDT - 07/21/2024 11:59 PM EDT Hospital Encounter [facility] Radiology [address], [address] [place] [address] Bilateral pleural effusion Discharge Disposition: Home or Self Care 07/21/2024 9:10 AM EDT Office Visit [facility] Medicine Specialties [address], [address] [place] [address] Sadiq Osborne MBBS Bilateral pleural effusion (Primary Dx); Systemic lupus erythematosus (SLE) in adult ([facility]); Rash and other nonspecific skin eruption; Primary osteoarthritis of knees, bilateral; High risk medication use 07/21/2024 Travel 07/20/2024 9:40 AM EDT Office Visit [facility] [address] [place] [address] Ashley June R, [employer]IGH [employer] Acute on chronic hypoxic respiratory failure (Primary Dx); Anticoagulated on Coumadin; Healthcare maintenance 07/20/2024 Results Follow-Up [facility] [address] [place] [address] Ashley June R, [employer]OR 07/20/2024 Travel 07/19/2024 Telephone [facility] Internal Medicine [address], [address] [place] [address] Alisa Kunz, DO HCN Clinical Concern/Question 07/19/2024 Telephone [facility] Internal Medicine [address], [address] [place] [address] Alisa Kunz, DO 07/19/2024 Patient Outreach POPULATION [address], [address] [place] [phone] Zully Caldwell LPN TCM Call 07/19/2024 Travel 07/19/2024 Telephone [facility] Medicine Specialties [address], [address] [place] [address] Sarah Hernadez RN 07/16/2024 Telephone [facility] Internal Medicine [address], [address] [place] [address] Alisa Kunz, HCN Clinical Concern/Question 07/16/2024 Refill [facility] Medicine Specialties [address], [address] [place] [address] Austin Ortiz, PharmD 07/16/2024 Patient Outreach POPULATION [address], [address] [place] [address] Zully Caldwell LPN TCM Call 07/15/2024 Travel 07/14/2024 Patient Outreach POPULATION HEALTH [address] [facility], [address] [place] [address] Ekaterina Gómez Link 07/13/2024 Travel 07/12/2024 1:12 PM EDT - 07/15/2024 5:00 PM EDT Hospital Encounter [facility] In[facility] [address] [place] [address] Yanet Arce MD [place], Evan L, MD Dweik, Anass G, MD Wimberly, Katherine E, MD Acute hypoxic respiratory failure (Primary Dx); Pleural effusion; LV (left ventricular) mural thrombus; Acute on chronic heart failure with preserved ejection fraction (CMS/HCC) Discharge Disposition: Home or Self Care 07/12/2024 9:51 AM EDT - 07/12/2024 1:11 PM EDT Hospital Encounter [facility] Radiology [address], [address] [place] [address] Recurrent pleural effusion on left Discharge Disposition: Home or Self Care 07/12/2024 Telephone [facility] Medicine Specialties [address], [address] [place] [address] Charo Donaldson 07/12/2024 Travel 07/08/2024 2:02 PM EDT - 07/08/2024 11:59 PM EDT Hospital Encounter [facility] Radiology [address], [address] [place] [address] Recurrent pleural effusion on left Discharge Disposition: Home or Self Care 07/08/2024 1:00 PM EDT Office Visit [facility] Medicine Specialties [address] [place] [address] Lavern Shoemaker MD Recurrent pleural effusion on left (Primary Dx); Chronic hypoxic respiratory failure; SLE (systemic lupus erythematosus related syndrome) (CMS/HCC); Bronchiolitis; Obstructive lung disease (CMS/HCC); Systemic lupus erythematosus (SLE) in adult (CMS/HCC) 07/08/2024 Results Follow-Up [facility] Medicine Specialties [address] [place] [address] Lavern Shoemaker MD 07/08/2024 Travel 07/08/2024 Telephone [facility] Internal Medicine [address], [address]rd [place] [address] Alisa Kunz DO 07/07/2024 12:00 PM EDT Office Visit [facility] Internal Medicine [address], [address]rd [place] [address] Alisa Kunz DO Acute hypoxic respiratory failure (Primary Dx); Pleural effusion 07/07/2024 Travel from Last 3 Months Immunizations Immunization Administration Dates Next Due Hep A, Adult 01/24/2019, 9,01/24/2019,01/23,01/23/2019,06/11/2018,06/11/2018 ,06/11/2018 Influenza, High-dose, Split Virus, Trivalent, Injectable, preservative free 11/27/2023,01/18/2019,12/19/2017 Influenza, Unspecified 12/09/2019 Influenza, high-dose, quadrivalent 01/09,01/28/2022,12/05/2020,12/05,12/05/2020,01/18/2019,01/18/2019 ,01/18/2019,01/18/2019,12/19/2017,12/08,12/19/2017 Influenza, seasonal, injectable 12/08/2018 [employer] COVID-19 Vac cine (Purple Cap) 12+ 04/22/2020,04/22/2020,03/30/2020,03/30 Pneumococcal Conjugate PCV 13 08/06/2019 ,08/06/2019,08/06/2019,07/02,07/02/2016,07/02/2016 Pneumococcal Polysaccharide PPV23 2019,06/11/2018,06/11/2018,06/11 Zoster, Recombinant 01/24/2019, 9,01/24/2019,01/23,01/23/2019,06/11/2018,06/11/2018 ,06/11/2018 Family History Medical History Relation Name Comments Alcohol abuse Father Doron Arriaza Alfredito Arthritis Father Doron Antunez COPD Father Doron Arriaza Alfredito Hypercholesterolemia Father Doron Arriaza [place] Obesity Father Doron Antunez Alpha-1 antitrypsin deficiency Mother m ildred stamper [...] Heart disease Other 3 Gracy Marry Stamper [place] Kelin Diabetes Sibling Relation Name Status Comments Father Doron Arriaza [place] Mother gracy stamper alfredito kelin Other 1 Doron E Alfredito Other 2 Other 3 Gracy Marry Stamper [place] Kelin Sibling Social History Tobacco Use Types [...] How often do you attend chur or methodist services? 1 to 4 times per year 08/30/2022 Do you belong to any clubs o r organizations such as moravian groups, unions, fraternal or athletic groups, or [...] Recorded Patient Health Questionnaire-2 Score 0 09/08/2024 [facility] - Occupational Stress Questionnaire Answer Date [...] time in the past [address] [facility], were you homeless or living [...] time in the past [address] [facility], were you homeless or living [...] drink first t anselmo in the morning (EYE-LOCKSTITCH POCKET SETTER) to steady your nerves or to [...] 1:17 PM EDT per pt report Height 162.6 cm (5' 4.02 ) 09/09/2024 8:23 PM ED T Body Mass Index 22.3 09/09/2024 8:23 PM EDT Plan of Treatment Upcoming Encounters Date Type Department Care Team (Late st Contact Info) Description 10/07/2024 12:50 PM EDT Office Visit [facility] Otolaryngology [address], [address]rd [place] [address] Chris Pepe MD [address] [place] [address] 10/07/2024 4:00 PM EDT Appointment Cardiac Imaging [address] [place] [address] 10/14/2024 11:00 AM EDT Office Visit [facility] Medicine Specialties [address], [address] [place] [address] Cristian Zimmer MD [address] [place] [address] 10/18/2024 7:40 AM EDT Office Visit [facility] Internal Medicine [address], [address]rd [place] [address] Alisa Kunz, DO [address] [place] [address] 10/25/2024 10:00 AM EDT Office Visit [facility] Nephrology, Bone & Mineral Metabolism [address] [facility] [address] [facility] [address], [address] [place] [address] Bryon Brandon MD [address] [place] [address] 10/27/2024 1:40 PM EDT [facility] End[facility]ology [address] [place] [phone] Anne-Marie Kolb L, [employer]IGH [employer] L[employer] TUTOR [address] [place] [address] 02/02/2025 8:40 AM EST Office Visit [facility] Internal Medicine [address], [address] [place] [address] Alisa Kunz, DO [address] [place] [address] Health Maintenance Due Date Last Done Comments [facility]-/Child/Adol SDOH Screenings 1950 Diabetes: Dental Exam 1961 [facility]-DTaP,Tdap,and Td Vaccines (1 - Tdap) 1970 CT Colonography 02/09/1996 Colonoscopy 02/09/1996 FIT-DNA 02/09/1996 FIT 02/09/1996 FOBT 02/09/1996 Sigmoidoscopy 02/09/1996 [facility]-RSV Vaccine: 60+ Years or (1 - Risk 60-74 years 1-dose series) 2011 [id number] Vaccine ( season) 2023 04/22/2020, 04/22/2020, 03/30/2020, Additional history exists [facility]-Breast Cancer Screening 11/10/202304/2021, 11/09/2021, 01/25/2020, Additional history exists [facility]-Medicare Annual Wellness (AWV) 01/10/2024 01/09/2023, 04/03/2021, 09/06/2020 [facility]-Influenza Vaccine (#1) 11/08/202411/26, 01/09/2023, 01/28/2022, Additional history exists [facility]-Diabetes: Hemoglobin A1C 11/13/2024 08/14/2024, 05/24/2024, 04/26/2024, Additional history exists [facility]-Bone Density Scan 01/10/2025 01/10/2023 , 01/10/2023, 11/08/2020 [facility]- SDOH Screenings 03/16/2025 [facility]-Adult SDOH Screenings 03/16/2025 09/13/2024 [facility]-Depression Screening 09/08/2025 025, 09/08/2024, 09/18/2022 [facility]-Colorectal Cancer Screening 10/17/2025 Postponed from 02/09/1996 (Other Medical Reasons) [facility]-Hepatitis A Vaccines Aged Out 019, 01/24/2019, 01/24/2019, Additional history exists No longer eligible based on patient's age to complete this topic [facility]-Zoster Vaccines Completed 01/24/2019, 01/24/2019, 01/24/2019, Additional history exists [facility]-Pneumococcal Vaccine: 50+ Years Completed 12/09/2019, 08/06/2019, 08/06/2019, Additional history exists [facility]-Hepatitis C Screening Completed [...] on patient's age to complete this topic Medical Devices Implanted Type Area Malware Analyst Device Identifier Shelf Expiration Date Model / Serial / Lot Tendril Lead- 9 Implanted: by Naveen Velasquez (Quantity not on file) [employer] TENDRIL STS 8TC/46 / [id number] / Tendril Lead- 9 Implanted: by Naveen Velasquez (Quantity not on file) [employer] T[employer] STS 8TC/52 / [id number] / Blank Pacemaker-08/08 Implanted: by Naveen Velasquez (Quantity not on file) Pac[employer] ASSURITY MRI 2272 / [id number] / Procedures Procedure Name Priority Date/Time Associated Diagnosis Comments PROTHROMBIN TIME(PT) / INR Routine 09/27/2024 2:29 PM EDT Longstanding persistent atrial fibrillation (CMS/HCC) COMPREHENSIVE METABOLIC PANEL, PLASMA Routine 09/27/2024 2:29 PM EDT Systemic lupus erythematosus (SLE) in adult (CMS/HCC) CBC WITH AUTO DIFFERENTIAL Routine 09/27/2024 2:29 PM EDT Systemic lupus erythematosus (SLE) in adult (CMS/HCC) POCT GLUCOSE METER UNSOLICITED RESULTS Routine 09/15/2024 12:18 PM EDT MOON SINGLE PATTERN (REFLEX ONLY) (SO) Routine 09/15/2024 9:21 AM EDT CBC W/O DIFFERENTIAL Routine 09/15/2024 9:21 AM EDT LACTATE DEHYDROGENASE, PLASMA Routine 09/15/2024 9:21 AM EDT ANTINUCLEAR ANTIBODY (MOON) WITH HEP-2 SUBSTRATE, IGG BY IFA (SO) Routine 09/15/2024 9:21 AM EDT MAGNESIUM, PLASMA Routine 09/15/2024 9:2 1 AM EDT BASIC METABOLIC PANEL, PLASMA Routine 09/15/2024 9:21 AM EDT PROTHROMBIN TIME(PT) / INR Routine 09/15/2024 9:21 AM EDT POCT GLUCOSE METER UNSOLICITED RESULTS Routine 09/15/2024 7:58 AM EDT POCT GLUCOSE METER UNSOLICITED RESULTS Routine 09/15/2024 3:06 AM EDT POCT GLUCOSE METER UNSOLICITED RESULTS Routine 09/14/2024 7:13 PM EDT POCT GLUCOSE METER UNSOLICITED RESULTS Routine 09/14/2024 5:14 PM EDT POCT GLUCOSE METER UNSOLICITED RESULTS Routine 09/14/2024 4:11 PM EDT MR HAND RIGHT W AND WO IV CONTRAST Routine 09/14/2024 2:44 PM EDT MR HAND LEFT W AND WO IV CONTRAST Routine 09/14/2024 2:44 PM EDT POCT GLUCOSE METER UNSOLICITED RESULTS Routine 09/14/2024 11:54 AM EDT POCT GLUCOSE METER UNSOLICITED RESULTS Routine 09/14/2024 7:51 AM EDT CBC W/O DIFFERENTIAL Pending Discharge 09/13/2024 9:29 PM EDT SEDIMENTATION RATE, AUTOMATED Pending Discharge 09/13/2024 9:29 PM EDT PROTHROMBIN TIME(PT) / INR Pending Discharge 09/13/2024 9:28 PM EDT POCT GLUCOSE METER UNSOLICITED RESULTS Routine 09/13/2024 9:12 PM EDT POCT GLUCOSE METER UNSOLICITED RESULTS Routine 09/13/2024 8:49 PM EDT POCT GLUCOSE METER UNSOLICITED RESULTS Routine 09/13/2024 8:31 PM EDT POCT GLUCOSE METER UNSOLICITED RESULTS Routine 09/13/2024 8:11 PM EDT POCT GLUCOSE METER UNSOLICITED RESULTS Routine 09/13/2024 4:51 PM EDT ECHO, ADULT TRANSTHORACIC LIMITED W/ CONTRAST Routine 09/13/2024 3:13 PM EDT POCT GLUCOSE METER UNSOLICITED RESULTS Routine 09/13/2024 12:05 PM EDT MAGNESIUM, PLASMA Pending Discharge 09/13/2024 10:00 AM EDT BASIC METABOLIC PANEL, PLASMA Pending Discharge 09/13/2024 10:00 AM EDT C-REACTIVE PROTEIN, PLASMA Pending Discharge 09/13/2024 10:00 AM EDT POCT GLUCOSE METER UNSOLICITED RESULTS Routine 09/13/2024 8:17 AM EDT POCT GLUCOSE METER UNSOLICITED RESULTS Routine 09/13/2024 3:19 AM EDT POCT GLUCOSE METER UNSOLICITED RESULTS Routine 09/12/2024 8:32 PM EDT POCT GLUCOSE METER UNSOLICITED RESULTS Routine 09/12/2024 5:03 PM EDT HERPES SIMPLEX VIRUS (HSV) BY PCR Pending Discharge 09/12/2024 3:52 PM EDT QUANTIFERON TB GOLD PLUS Pending Discharge 09/12/2024 3:50 PM EDT PROTHROMBIN TIME(PT) / INR Pending Discharge 09/12/2024 3:01 PM EDT EXTRA TUBE BRO TOP Routine 09/12/2024 2 :43 PM EDT EXTRA TUBE GOLD TOP Routine 09/12/2024 2 :43 PM EDT EXTRA TUBE LAVENDER TOP Routine 09/12/2024 2:43 PM EDT EXTRA TUBE LAVENDER TOP Routine 09/12/2024 2:43 PM EDT EXTRA TUBE LIGHT GREEN TOP Routine 09/12/2024 2:43 PM EDT EXTRA TUBES Routine 09/12/2024 2:43 PM EDT POCT GLUCOSE METER UNSOLICITED RESULTS Routine 09/12/2024 11:47 AM EDT POCT GLUCOSE METER UNSOLICITED RESULTS Routine 09/12/2024 8:19 AM EDT POCT GLUCOSE METER UNSOLICITED RESULTS Routine 09/11/2024 7:37 PM EDT BLOOD CULTURE (AEROBIC/ANAEROBIC SET) Routine 09/11/2024 5:55 PM EDT POCT GLUCOSE METER UNSOLICITED RESULTS Routine 09/11/2024 5:36 PM EDT BODY FLUID CULTURE AND GRAM STAIN Routine 09/11/2024 3:35 PM EDT AFB CULTURE, NON RESPIRATORY SOURCE AND ACID FAST STAIN Routine 09/11/2024 3:35 PM EDT FUNGAL CULTURE, STERILE BODY FLUID (NOT CSF) AND JAS Routine 09/11/2024 3:35 PM EDT XR CHEST 1 VIEW STAT 09/11/2024 1:45 PM EDT HC THORACENTESIS NEEDLE/CATH PLEURA W/IMAGING Routine 09/11/2024 1:22 PM EDT Pleural effusion SD THORACENTESIS NEEDLE/CATH PLEURA W/IMAGING Routine 09/11/2024 1:22 PM EDT Pleural effusion BODY FLUID, CYTOSPIN, PATHOLOGIST INTERPRETATION Routine 09/11/2024 1:13 PM EDT BODY FLUID CELL COUNT W/ MANUAL DIFFERENTIAL Routine 09/11/2024 1:13 PM EDT NON-GYNECOLOGIC CYTOLOGY Routine 09/11/2024 1:12 PM EDT PH, PLEURAL FLUID Routine 09/11/2024 1:1 2 PM EDT ALBUMIN, PLEURAL FLUID Routine 09/11/2024 1:12 PM EDT LACTATE DEHYDROGENASE, PLEURAL FLUID Routine 09/11/2024 1:12 PM EDT ALBUMIN, PLEURAL FLUID Routine 09/11/2024 1:12 PM EDT TOTAL PROTEIN, PLEURAL FLUID Routine 09/11/2024 1:12 PM EDT POCT GLUCOSE METER UNSOLICITED RESULTS Routine 09/11/2024 12:53 PM EDT XR CHEST 1 VIEW STAT 09/11/2024 9:47 AM EDT PROTHROMBIN TIME(PT) / INR STAT 09/11/2024 9:24 AM EDT IMMUNOGLOBULIN G SUBCLASSES (1, 2, 3, 4) (SO) Routine 09/11/2024 9:24 AM EDT ANCA VASCULITIS PROFILE (SO) Routine 09/11/2024 9:24 AM EDT POCT GLUCOSE METER UNSOLICITED RESULTS Routine 09/11/2024 9:03 AM EDT POCT GLUCOSE METER UNSOLICITED RESULTS Routine 09/11/2024 8:15 AM EDT COMPREHENSIVE METABOLIC PANEL, PLASMA Add-On 09/11/2024 5:25 AM EDT MAGNESIUM, PLASMA Routine 09/11/2024 5:2 5 AM EDT BASIC METABOLIC PANEL, PLASMA Routine 09/11/2024 5:25 AM EDT POCT GLUCOSE METER UNSOLICITED RESULTS Routine 09/10/2024 7:25 PM EDT POCT GLUCOSE METER UNSOLICITED RESULTS Routine 09/10/2024 4:45 PM EDT URINALYSIS MICROSCOPIC FOR UA REFLEX Routine 09/10/2024 1:16 PM EDT PROTEIN, URINE, RANDOM WITH CREATININE Routine 09/10/2024 1:16 PM EDT URINALYSIS WITH REFLEX MICROSCOPIC Routine 09/10/2024 1:16 PM EDT POCT GLUCOSE METER UNSOLICITED RESULTS Routine 09/10/2024 12:06 PM EDT POCT GLUCOSE METER UNSOLICITED RESULTS Routine 09/10/2024 10:44 AM EDT POCT GLUCOSE METER UNSOLICITED RESULTS Routine 09/10/2024 8:47 AM EDT IG PROFILE Add-On 09/10/2024 3:24 AM EDT PROTHROMBIN TIME(PT) / INR Routine 09/10/2024 3:24 AM EDT MAGNESIUM, PLASMA Routine 09/10/2024 3:2 4 AM EDT BASIC METABOLIC PANEL, PLASMA Routine 09/10/2024 3:24 AM EDT CBC W/O DIFFERENTIAL Routine 09/10/2024 3:24 AM EDT C4 COMPLEMENT Routine 09/10/2024 3:24 AM EDT C3 COMPLEMENT Routine 09/10/2024 3:24 AM EDT DOUBLE-STRANDED DNA (DSDNA) ANTIBODY, IGG BY IFA (SO) Routine 09/10/2024 3:24 AM EDT POCT GLUCOSE METER UNSOLICITED RESULTS Routine 09/09/2024 8:25 PM EDT BLOOD GAS PANEL, VENOUS STAT 09/09/2024 4:50 PM EDT XR CHEST 2 VIEWS STAT 09/09/2024 4:09 PM EDT SEDIMENTATION RATE, AUTOMATED Add-On 09/09/2024 3:50 PM EDT C-REACTIVE PROTEIN, PLASMA Add-On 09/09/2024 3:50 PM EDT N-TERMINAL PROBNP, PLASMA STAT 09/09/2024 3:50 PM EDT MAGNESIUM, PLASMA STAT 09/09/2024 3:5 0 PM EDT COMPREHENSIVE METABOLIC PANEL, PLASMA STAT 09/09/2024 3:50 PM EDT PROTHROMBIN TIME(PT) / INR STAT 09/09/2024 3:50 PM EDT CBC WITH AUTO DIFFERENTIAL STAT 09/09/2024 3:50 PM EDT ECG ADULT STAT 09/09/2024 3:36 PM EDT VAS US VENOUS DUPLEX UPPER EXTREMITY UNILATERAL STAT 09/08/2024 2:33 PM EDT Localized swelling, mass and lump, left upper limb XR CHEST 2 VIEWS Routine 09/08/2024 1:50 PM EDT Shortness of breath FERRITIN, SERUM Routine 09/08/2024 1:33 PM EDT Restless leg syndrome CBC WITH AUTO DIFFERENTIAL Routine 09/08/2024 1:33 PM EDT Shortness of breath COMPREHENSIVE METABOLIC PANEL, PLASMA Routine 09/08/2024 1:33 PM EDT Shortness of breath IRON & TOTAL IRON BINDING CAPACITY, PLASMA (INCLUDES TRANSFERRIN) Routine 09/08/2024 1:33 PM EDT Restless leg syndrome SARS-COV-2, FLU A, FLU B, AND RSV Routine 09/08/2024 1:09 PM EDT Sore throat POCT GLUCOSE METER UNSOLICITED RESULTS Routine 08/24/2024 [...] 10:57 AM EDT AMYLASE, PLEURAL FLUID Routine 08/17/2024 10:57 AM EDT CHOLESTEROL FLUID (SO) Routine 08/17/2024 10:57 AM EDT ADENOSINE DEAMINASE, PLEURAL FLUID (SO) Routine 08/17/2024 10:57 AM EDT PH, PLEURAL FLUID Routine 08/17/2024 10:57 AM EDT TRIGLYCERIDES BF WITH RFLX TO CHYLO (SO) Routine 08/17/2024 10:57 AM EDT GLUCOSE, PLEURAL FLUID Routine 08/17/2024 10:57 AM EDT ALBUMIN, PLEURAL FLUID Routine 08/17/2024 10:57 AM EDT LACTATE DEHYDROGENASE, [...] EDT XR CHEST 2 VIEWS Routine 07/21/2024 11:53 AM EDT Bilateral pleural effusion DOUBLE-STRANDED DNA (DSDNA) ANTIBODY, IGG BY IFA (SO) Routine 07/21/2024 11:18 AM EDT Systemic lupus erythematosus (SLE) in adult ([facility]) CBC WITH AUTO DIFFERENTIAL Routine 07/21/2024 11:18 AM EDT Systemic lupus erythematosus (SLE) in adult ([facility]) COMPREHENSIVE METABOLIC PANEL, PLASMA Routine 07/21/2024 11:18 AM EDT Systemic lupus erythematosus (SLE) in adult ([facility]) SEDIMENTATION RATE, AUTOMATED Routine 07/21/2024 11:18 AM EDT Systemic lupus erythematosus (SLE) in adult ([facility]) C-REACTIVE PROTEIN, PLASMA Routine 07/21/2024 11:18 AM EDT Systemic lupus erythematosus (SLE) in adult ([facility]) C3 COMPLEMENT Routine 07/21/2024 11:04 AM EDT Systemic lupus erythematosus (SLE) in adult ([facility]) C4 COMPLEMENT Routine 07/21/2024 11:04 AM EDT Systemic lupus erythematosus (SLE) in adult ([facility]) CBC W/O DIFFERENTIAL Routine 07/20/2024 11:28 AM EDT Acute on chronic hypoxic respiratory failure COMPREHENSIVE METABOLIC PANEL, PLASMA Routine 07/20/2024 11:28 AM EDT Acute on chronic hypoxic respiratory failure PROTHROMBIN TIME(PT) / INR Routine 07/20/2024 11:28 AM EDT Acute on chronic hypoxic respiratory failure ECHO, ADULT TRANSTHORACIC COMPLETE W/ CONTRAST Routine 07/15/2024 3:36 PM EDT CHOLESTEROL FLUID (SO) Routine 07/15/2024 1:03 PM EDT TRIGLYCERIDES, BODY FLUIDS (SO) Routine 07/15/2024 1:03 PM EDT POCT GLUCOSE METER UNSOLICITED RESULTS Routine 07/15/2024 12:43 PM EDT POCT GLUCOSE METER UNSOLICITED RESULTS Routine 07/15/2024 11:56 AM EDT POCT GLUCOSE METER UNSOLICITED RESULTS Routine 07/15/2024 11:35 AM EDT XR CHEST 1 VIEW STAT 07/15/2024 10:54 AM EDT HC THORACENTESIS NEEDLE/CATH PLEURA W/IMAGING Routine 07/15/2024 9:43 AM EDT Pleural effusion SD THORACENTESIS NEEDLE/CATH PLEURA W/IMAGING Routine 07/15/2024 9:43 AM EDT Pleural effusion BODY FLUID, CYTOSPIN, PATHOLOGIST INTERPRETATION Routine 07/15/2024 9:34 AM EDT BODY FLUID CELL COUNT W/ MANUAL DIFFERENTIAL Routine 07/15/2024 9:34 AM EDT NON-GYNECOLOGIC CYTOLOGY Routine 07/15/2024 9:31 AM EDT GLUCOSE, PLEURAL FLUID Routine 07/15/2024 9:31 AM EDT LACTATE DEHYDROGENASE, [...] EDT XR CHEST 2 VIEWS Routine 07/12/2024 10:11 AM EDT Recurrent pleural effusion on left XR CHEST 2 VIEWS Routine 07/08/2024 2:11 PM EDT Recurrent pleural effusion on left HEPATITIS C ANTIBODY - ED W/REFLEX TO HCV QUANT PCR STAT 01/29/2024 3:32 PM EST DEXA BONE DENSITY Routine 01/10/2023 10:23 AM EDT Osteopenia, unspecified location MAMMOGRAPHY BREAST SCREENING TOMOSYNTHESIS BILATERAL Routine 11/09/2021 4:12 PM EDT Healthcare maintenance from Last 3 Months or Most Recently Relevant to Health Maintenance Results * (ABNORMAL) Protime-INR (09/27/2024 2:29 PM EDT) Only the most recent of24 resultswithin the time period is included. Prothrombin Time 19.5(H) 12.0 - 14.3 sec LAB COAGULATION METHOD 09/27/2024 5:42 PM EDT [facility] INR 1.6(H) 0.9 - 1.1 LAB COAGULATION METHOD 09/27/2024 5:42 PM EDT [facility] Blood Venous blood specimen / Unknown Venipuncture / Unknown 09/27/2024 2:29 PM EDT 09/27/2024 2:29 PM EDT Narrative [facility] - 09/27/2024 5:42 PM EDT OPTIMAL INR RANGES FOR PATIENT ON ORAL ANTICOAGULANT THERAPY Prevention of venous thromboembolism INR 2.0 to 3.0 In patients with heart disease: Atrial fibrillation INR 2.0 to 3.0 Valvular heart disease INR 2.0 to 3.0 Tissue heart valves INR 2.0 to 3.0 Mechanical prosthetic valves INR 2.5 to 3.5 Prevention of recurrent AL INR 2.5 to 3.5 us June Ashley [employer] LAB BLOOD ORDERABLES Final Result [facility] [address] [place] [address] * (ABNORMAL) CBC and differential (09/27/2024 2:29 PM EDT) Only the most recent of9 resultswithin the time period is included. WBC Count 7.40 3.70 - 10.30 10*3/uL LAB HEMATOLOGY METHOD 09/27/2024 6:24 PM EDT [facility] RBC Count 3.48(L) 3.90 - 5.20 10*6/uL LAB HEMATOLOGY METHOD 09/27/2024 6:24 PM EDT [facility] HGB 10.5(L) 11.2 - 15.7 g/dL LAB HEMATOLOGY METHOD 09/27/2024 6:24 PM EDT [facility] HCT 34.1 34.0 - 45.0 % LAB HEMATOLOGY METHOD 09/27/2024 6:24 PM EDT [facility] Platelet Count 473(H) 155 - 369 10*3/uL LAB HEMATOLOGY METHOD 09/27/2024 6:24 PM EDT [facility] MCV 98 79 - 98 fL LAB HEMATOLOGY METHOD 09/27/2024 6:24 PM EDT [facility] MCH 30.2 26.0 - 32.0 pg LAB HEMATOLOGY METHOD 09/27/2024 6:24 PM EDT [facility] MCHC 30.8 30.7 - 35.5 g/dL LAB HEMATOLOGY METHOD 09/27/2024 6:24 PM EDT [facility] RDW 16.6(H) 11.5 - 14.5 % LAB HEMATOLOGY METHOD 09/27/2024 6:24 PM EDT [facility] MPV 9.8 8.8 - 12.5 fL LAB HEMATOLOGY METHOD 09/27/2024 6:24 PM EDT [facility] nRBC 0.0 <=0.0 per 100 WBCs LAB HEMATOLOGY METHOD 09/27/2024 6:24 PM EDT [facility] Differential Type Automated LAB HEMATOLOGY METHOD 09/27/2024 6:24 PM EDT [facility] Neutrophils % 72 % LAB HEMATOLOGY METHOD 09/27/2024 6:24 PM EDT [facility] Lymphocytes % 14 % LAB HEMATOLOGY METHOD 09/27/2024 6:24 PM EDT [facility] Monocytes % 11 % LAB HEMATOLOGY METHOD 09/27/2024 6:24 PM EDT [facility] Eosinophils % 1 % LAB HEMATOLOGY METHOD 09/27/2024 6:24 PM EDT [facility] Basophils % 1 % LAB HEMATOLOGY METHOD 09/27/2024 6:24 PM EDT [facility] Immature Granulocytes % 1 % LAB HEMATOLOGY METHOD 09/27/2024 6:24 PM EDT [facility] Neutrophils Absolute 5.39 1.60 - 6.10 10*3/uL LAB HEMATOLOGY METHOD 09/27/2024 6:24 PM EDT [facility] Lymphocytes Absolute 1.04(L) 1.20 - 3.90 10*3/uL LAB HEMATOLOGY METHOD 09/27/2024 6:24 PM EDT [facility] Monocytes Absolute 0.80 0.30 - 0.90 10*3/uL LAB HEMATOLOGY METHOD 09/27/2024 6:24 PM EDT [facility] Eosinophils Absolute 0.06 0.00 - 0.50 10*3/uL LAB HEMATOLOGY METHOD 09/27/2024 6:24 PM EDT [facility] Basophils Absolute 0.06 0.00 - 0.10 10*3/uL LAB HEMATOLOGY METHOD 09/27/2024 6:24 PM EDT [facility] Immature Granulocytes Absolute 0.05 0.00 - 0.06 10*3/uL LAB HEMATOLOGY METHOD 09/27/2024 6:24 PM EDT [facility] Blood Venous blood specimen / Unknown Venipuncture / Unknown 09/27/2024 2:29 PM EDT 09/27/2024 2:29 PM EDT Narrative [facility] - 09/27/2024 6:24 PM EDT Therapeutic decision making should be based on absolute values, rather than percentages. us Fili Hutson MD LAB BLOOD ORDERABLES Final Result [facility] [address] [place] [address] * (ABNORMAL) Comprehensive metabolic panel (09/27/2024 2:29 PM EDT) Only the most recent of9 resultswithin the time period is included. Glucose, Plasma 191(H) 74 - 99 mg/dL 09/27/2024 5:45 PM EDT [facility] BUN, Plasma 23 8 - 23 mg/dL 09/27/2024 5:45 PM EDT [facility] Creatinine, Plasma 1.00 0.60 - 1.10 mg/dL 09/27/2024 5:45 PM EDT [facility] BUN/Creatinine Ratio 23 09/27/2024 5:45 PM EDT [facility] Sodium, Plasma 129(L) 136 - 145 mmol/L 09/27/2024 5:45 PM EDT [facility] Potassium, Plasma 4.2 3.6 - 4.9 mmol/L 09/27/2024 5:45 PM EDT [facility] Chloride, Plasma 88(L) 97 - 107 mmol/L 09/27/2024 5:45 PM EDT [facility] CO2, Plasma 31(H) 22 - 29 mmol/L 09/27/2024 5:45 PM EDT [facility] Anion Gap 10 6 - 16 mmol/L 09/27/2024 5:45 PM EDT [facility] Total Calcium, Plasma 9.0 8.9 - 10.2 mg/dL 09/27/2024 5:45 PM EDT [facility] Total Protein 7.3 6.3 - 7.9 g/dL 09/27/2024 5:45 PM EDT [facility] Albumin, Plasma 3.5 3.5 - 5.2 g/dL 09/27/2024 5:45 PM EDT [facility] AST, Plasma 39(H) 10 - 35 U/L 09/27/2024 5:45 PM EDT [facility] ALT, Plasma 26 10 - 35 U/L 09/27/2024 5:45 PM EDT [facility] Alkaline Phosphatase, Plasma 128 46 - 142 U/L 09/27/2024 5:45 PM EDT [facility] Total Bilirubin, Plasma 0.4 0.2 - 1.1 mg/dL 09/27/2024 5:45 PM EDT [facility] eGFRcr 59.6 mL/min/1.7 3m*2 09/27/2024 5:45 PM EDT [facility] Comment:Reported eGFRcr in m L/min/1.73m2 is based the CKD-EPI 2020 equation that does not use a race coefficient. Blood Venous blood specimen / Unknown Venipuncture / Unknown 09/27/2024 2:29 PM EDT 09/27/2024 2:29 PM EDT us Fili Hutson MD LAB BLOOD ORDERABLES Final Result Performing Organization Address City/[facility]/ZIP Co de Phone Number [facility] [address] [place] [address] * (ABNORMAL) POCT glucose meter (09/15/2024 12:18 PM EDT) Only the most recent of110 resultswithin the time period is included. [facility] POCT Glucose 324(H) 74 - 99 mg/dL 09/15/2024 12:21 PM EDT [facility] Comment:Accuracy of a glucos e result obtained from a capillary whole blood specimen relies upon adequate, non-compromised capillary blood flow. If the capillary glucose result is not consistent with the patient's clinical signs and symptoms, glucose testing should be repeated with either an arterial or venous sample on the glucometer or sent to the main labortory for testing. Comment 09/15/2024 12:21 PM EDT [facility] [employer] Renetta Junior 09/15/2024 12:21 PM EDT [facility] Device ID [id number] 09/15/2024 12:21 PM EDT [facility] Specimen Type POC Capillary 09/15/2024 12:21 PM EDT [facility] Blood Capillary blood specimen / Unknown 09/15/2024 12:18 PM EDT 09/15/2024 12:21 PM EDT us Alex Mg MD LAB POINT OF CARE TE ST DOCKED DEVICE UNSOLICITED RESULTS Final Result Performing Organization Address City/[facility]/ZIP Co de Phone Number [facility] [address] [place] [address] * (ABNORMAL) MOON Single Pattern (Reflex only) (09/15/2024 9:21 AM EDT) [facility] MOON Pattern Homogeneou s(A) 09/20/2024 10:[address] [facility] ([employer]) MOON Titer 1:160(A) 09/20/2024 10:[address] [facility] ([employer]) Blood Venous blood specimen / Unknown Venipuncture / Unknown 09/15/2024 9:21 AM EDT 09/15/2024 9:39 AM EDT Narrative [facility] ([facility]) - 09/20/2024 10:53 PM EDT Performed By: [facility] [address] [place] [address] [employer] Tender: Austin Bernal MD, PhD CLIA Number: [id number] us Fernando Valenzuela MD LAB BLOOD ORDERABLES Final Resu lt [facility] ([employer]) [address] [place] [address] * (ABNORMAL) CBC W/O Differential (09/15/2024 9:21 AM EDT) Only the most recent of7 resultswithin the time period is included. WBC Count 5.81 3.70 - 10.30 10*3/uL LAB HEMATOLOGY METHOD 09/15/2024 9:42 AM EDT [facility] RBC Count 3.68(L) 3.90 - 5.20 10*6/uL LAB HEMATOLOGY METHOD 09/15/2024 9:42 AM EDT [facility] HGB 10.8(L) 11.2 - 15.7 g/dL LAB HEMATOLOGY METHOD 09/15/2024 9:42 AM EDT [facility] HCT 34.3 34.0 - 45.0 % LAB HEMATOLOGY METHOD 09/15/2024 9:42 AM EDT [facility] Platelet Count 334 155 - 369 10*3/uL LAB HEMATOLOGY METHOD 09/15/2024 9:42 AM EDT [facility] MCV 93 79 - 98 fL LAB HEMATOLOGY METHOD 09/15/2024 9:42 AM EDT [facility] MCH 29.3 26.0 - 32.0 pg LAB HEMATOLOGY METHOD 09/15/2024 9:42 AM EDT [facility] MCHC 31.5 30.7 - 35.5 g/dL LAB HEMATOLOGY METHOD 09/15/2024 9:42 AM EDT [facility] RDW 15.2(H) 11.5 - 14.5 % LAB HEMATOLOGY METHOD 09/15/2024 9:42 AM EDT [facility] MPV 9.0 8.8 - 12.5 fL LAB HEMATOLOGY METHOD 09/15/2024 9:42 AM EDT [facility] nRBC 0.0 <=0.0 per 100 WBCs LAB HEMATOLOGY METHOD 09/15/2024 9:42 AM EDT [facility] Blood Venous blood specimen / Unknown Venipuncture / Unknown 09/15/2024 9:21 AM EDT 09/15/2024 9:39 AM EDT us Alex Mg MD LAB BLOOD ORDERABLES Final R esult [facility] [address] [place] [address] * (ABNORMAL) Antinuclear Antibody (MOON) with HEp-2 Substrate, IgG by IFA (09/15/2024 9:21 AM EDT) MOON INTERPRETIVE COMMENT See Note 09/20/2024 10:53 PM EDT [facility] ([employer]) Anti Nuc Ab Screen Detected( H) <1:80 09/20/2024 10:53 PM EDT [facility]) Blood Venous blood specimen / Unknown Venipuncture / Unknown 09/15/2024 9:21 AM EDT 09/15/2024 9:39 AM EDT Narrative [facility] ([employer]) - 09/20/2024 10:53 PM EDT Homogeneous Pattern Clinical associations: SLE, drug-induced SLE or CHAMP. Main autoantibodies: Anti-dsDNA, anti-histones or anti-chromatin (anti-nucleosome) List of Abbreviations Antimitochondrial antibodies (AMA), Antisynthetase syndrome (ARS), chronic active hepatitis (CAH), inflammatory myopathies (IM) [dermatomyositis (DM), polymyositis (PM), necrotizing autoimmune myopathy (NAM)], interstitial lung disease (ILD), juvenile idiopathic arthritis (CHAMP), mixed connective tissue disease (MCTD), primary biliary cholangitis (PBC), rheumatoid arthritis (RA), systemic autoimmune rheumatic diseases (SARD), Sjogren syndrome (SjS), systemic lupus erythematosus (SLE), systemic sclerosis (SSc), undifferentiated connective tissue disease (UCTD). INTERPRETIVE INFORMATION: MOON Interpretive Comment Presence of antinuclear antibodies (MOON) is a hallmark feature of systemic autoimmune rheumatic diseases (SARD). However, MOON lacks diagnostic specificity and is associated with a variety of diseases (cancers, autoimmune, infectious, and inflammatory conditions) and may also occur in healthy individuals in varying prevalence. The lack of diagnostic specificity requires confirmation of positive MOON by more specific serologic tests. MOON (nuclear reactivity) positive patterns reported include centromere, homogeneous, nuclear dots, nucleolar, or speckled. MOON (cytoplasmic reactivity) positive patterns reported include reticular/AMA, discrete/GW body-like, polar/golgi-like, cytoplasmic speckled or rods and rings. All positive patterns are reported to endpoint titers (1:2560). Reported patterns may help guide differential diagnosis, although they may not be specific for individual antibodies or diseases. Mitotic staining patterns not reported. Negative results do not necessarily rule out SARD. Performed By: [facility] [address] [place] [address] [employer]: Austin Bernal MD, PhD CLIA Number: [id number] Fernando Valenzuela MD LAB BLOOD ORDERABLES Final Resu lt Performing Organization Address [facility] Co de Phone Number [facility] [address] [place] [address] * (ABNORMAL) Magnesium, Plasma (09/15/2024 9:21 AM EDT) Only the most recent of13 resultswithin the time period is included. Magnesium, Plasma 1.7(L) 1.9 - 2.4 mg/dL 09/15/2024 10:03 AM EDT [facility] Blood Venous blood specimen / Unknown Venipuncture / Unknown 09/15/2024 9:21 AM EDT 09/15/2024 9:39 AM EDT Fernando Valenzuela MD LAB BLOOD ORDERABLES Final Resu lt [facility] [address] [place] [address] * (ABNORMAL) Lactate dehydrogenase (09/15/2024 9:21 AM EDT) Only the most recent of3 resultswithin the time period is included. Pathologist [facility] LDH, Plasma 396(H) 116 - 250 U/L 09/15/2024 10:03 AM EDT [facility] Blood Venous blood specimen / Unknown Venipuncture / Unknown 09/15/2024 9:21 AM EDT 09/15/2024 9:39 AM EDT us Alex Mg MD LAB BLOOD ORDERABLES Final R esult Performing Organization Address [facility] Co de Phone Number [facility] [address] [place] [address] * (ABNORMAL) Basic Metabolic Panel, Plasma (09/15/2024 9:21 AM EDT) Only the most recent of18 resultswithin the time period is included. Pathologist [facility] Glucose, Plasma 206(H) 74 - 99 mg/dL 09/15/2024 10:03 AM EDT [facility] BUN, Plasma 16 8 - 23 mg/dL 09/15/2024 10:03 AM EDT [facility] Creatinine, Plasma 0.89 0.60 - 1.10 mg/dL 09/15/2024 10:03 AM EDT [facility] BUN/Creatinine Ratio 18 09/15/2024 10:03 AM EDT [facility] Sodium, Plasma 129(L) 136 - 145 mmol/L 09/15/2024 10:03 AM EDT [facility] Potassium, Plasma 4.4 3.6 - 4.9 mmol/L 09/15/2024 10:03 AM EDT [facility] Chloride, Plasma 90(L) 97 - 107 mmol/L 09/15/2024 10:03 AM EDT [facility] CO2, Plasma 29 22 - 29 mmol/L 09/15/2024 10:03 AM EDT [facility] Anion Gap 10 6 - 16 mmol/L 09/15/2024 10:03 AM EDT [facility] Total Calcium, Plasma 8.6(L) 8.9 - 10.2 mg/dL 09/15/2024 10:03 AM EDT [facility] eGFRcr 68.6 mL/min/1.7 3m*2 09/15/2024 10:03 AM EDT [facility] Comment:Reported eGFRcr in m L/min/1.73m2 is based the CKD-EPI 2020 equation that does not use a race coefficient. Blood Venous blood specimen / Unknown Venipuncture / Unknown 09/15/2024 9:21 AM EDT 09/15/2024 9:39 AM EDT us Fernando Valenzuela MD LAB BLOOD ORDERABLES Final Resu lt [facility] [address] [place] [address] * MR Hand Left w and wo IV Contrast (09/14/2024 2:44 PM EDT) Anatomical Region Laterality Modality Hand Left Magnetic Resonan ce Impressions 09/14/2024 3:19 PM EDT Evaluation is somewhat limited by motion. Evaluation for evaluation of inflammatory arthropathy is further limited by lack of radiograph for comparison. Mild edema and enhancement along the third and fourth digit flexor tendons could represent a component of tenosynovitis. Along the radial margin of the third digit flexor tendon at the level of the metacarpophalangeal joint there is a 6 mm focus of enhancement which is nonspecific, given the provided indication rheumatoid nodule would be a consideration, follow-up could be considered to assess stability. Evaluation for erosions is limited. Diffuse narrowing of the interphalangeal joints is noted. There is subtle increased T2 signal or enhancement most notable along the base of the third and fourth digit proximal phalanx which could be due to degenerative marrow signal change however developing erosions could also have this appearance. Radiographs could be considered for further characterization. CRITICAL RESULT: No. COMMUNICATION: Per this written report. Drafted by Alex Metz on 09/14/2024 3:07 PM Final report signed by Alex Metz on 09/14/2024 3:19 PM Narrative 09/14/2024 3:19 PM EDT CLINICAL INDICATION: Worsening erosions or nodules TECHNIQUE: Multiplanar multiecho sequences were obtained utilizing T1 and T2 weighting with and without the administration of intravenous contrast. 6.2 mL of Gadavist was administered. COMPARISON: None. FINDINGS: Evaluation is somewhat limited by motion. Evaluation for arthropathy is further limited by lack of radiograph for comparison. Bone and Bone Marrow: No acute fracture, AVN, or suspicious intraosseous lesion. Possible cystic change along the head of the first metatarsal possibly degenerative. Subtle increased T2 signal and enhancement along the base of the third and fourth digit proximal phalanx. Soft Tissues: The flexor and extensor tendons appear grossly intact. Mild edema and enhancement along the fourth digit flexor tendon. There is focal enhancement along the radial margin is measuring up to 6 mm. Mild edema and enhancement along the third digit flexor tendon at the level of the proximal phalanx. No evidence of muscle strain. No significant edema within the carpal tunnel. Narrowing of the interphalangeal joints. Procedure Note Alex Metz MD - 09/14/2024 CLINICAL INDICATION: Worsening erosions or nodules TECHNIQUE: Multiplanar multiecho sequences were obtained utilizing T1 and S3ctbsxtxcx with and without the administration of intravenous contrast.6.2 mL of Gadavist was administered. COMPARISON: None. FINDINGS: Evaluation is somewhat limited by motion. Evaluation for arthropathy isfurther limited by lack of radiograph for comparison. Bone and Bone Marrow: No acute fracture, AVN, or suspicious intraosseouslesion. Possible cystic change along the head of the first metatarsalpossibly degenerative. Subtle increased T2 signal and enhancement alongthe base of the third and fourth digit proximal phalanx. Soft Tissues: The flexor and extensor tendons appear grossly intact. Mildedema and enhancement along the fourth digit flexor tendon. There is focalenhancement along the radial margin is measuring up to 6 mm. Mild edemaand enhancement along the third digit flexor tendon at the level of theproximal phalanx. No evidence of muscle strain. No significant edemawithin the carpal tunnel. Narrowing of the interphalangeal joints. IMPRESSION: Evaluation is somewhat limited by motion. Evaluation for evaluation ofinflammatory arthropathy is further limited by lack of radiograph forcomparison. Mild edema and enhancement along the third and fourth digit flexor tendonscould represent a component of tenosynovitis. Along the radial margin ofthe third digit flexor tendon at the level of the metacarpophalangealjoint there is a 6 mm focus of enhancement which is nonspecific, given theprovided indication rheumatoid nodule would be a consideration, follow-upcould be considered to assess stability. Evaluation for erosions is limited. Diffuse narrowing of theinterphalangeal joints is noted. There is subtle increased T2 signal orenhancement most notable along the base of the third and fourth digitproximal phalanx which could be due to degenerative marrow signal changehowever developing erosions could also have this appearance. Radiographscould be considered for further characterization. CRITICAL RESULT: No. COMMUNICATION: Per this written report. Drafted by Alex Metz on 09/14/2024 3:07 PM Final report signed by Alex Metz on 09/14/2024 3:19 PM Fernando Valenzuela MD IM MRI PROCEDURES Final Result * MR Hand Right w and wo IV Contrast (09/14/2024 2:44 PM EDT) Anatomical Region Laterality Modality Hand Right Magnetic Resonan ce Impressions 09/14/2024 3:53 PM EDT Evaluation is limited by motion. Evaluation for inflammatory arthropathy is further limited by lack of radiograph for comparison. Edema-like marrow signal change along the anterior radial margin of the head of the second metatarsal with associated enhancement is nonspecific could represent developing erosive change, radiograph could be considered for further characterization. Mild increased T2 signal and enhancement in the thenar eminence nonspecific could be seen with myositis. Likely diffuse narrowing of the interphalangeal joints and metacarpophalangeal joints. Degenerative changes of the interphalangeal joint of the thumb with likely cystic change. CRITICAL RESULT: No. COMMUNICATION: Per this written report. By electronically signing this report, I, the attending physician, attest that I have personally reviewed the images/data for the above examination(s) and agree with the final edited report. Drafted by Shawna Cooper MD on 09/14/2024 3:17 PM Final report signed by Alex Metz on 09/14/2024 3:53 PM Narrative 09/14/2024 3:53 PM EDT CLINICAL INDICATION: r/o worsening joint eosions or nodules TECHNIQUE: MRI right hand: Multiplanar multiecho sequences were obtained utilizing T1 and T2 weighting with and without the administration of intravenous contrast. 6.2 mL of Gadavist was administered. COMPARISON: None. FINDINGS: Evaluation is limited by motion. Evaluation for inflammatory arthropathy is further limited by lack of radiograph for comparison. Bone and Bone Marrow: Multiple subchondral bone cysts in the metatarsal bones and phalanges, most notable along the interphalangeal joint of the thumb. Along the anterior radial margin of the head of the second metacarpal there is a small focus of edema-like marrow signal change and enhancement. No acute fracture. Osseous structures in satisfactory alignment, Soft Tissues: Mild edema and enhancement in the opponens pollicis muscle and abductor pollicis brevis muscle. The flexor and extensor tendons appear grossly intact. No significant edema in the carpal tunnel. No definite evidence of acute synovitis. There may be diffuse narrowing of the interphalangeal joints. Procedure Note Alex Metz MD - 09/14/2024 CLINICAL INDICATION: r/o worsening joint eosions or nodules TECHNIQUE: MRI right hand: Multiplanar multiecho sequences were obtained utilizing T1and T2 weighting with and without the administration of intravenouscontrast. 6.2 mL of Gadavist was administered. COMPARISON: None. FINDINGS: Evaluation is limited by motion. Evaluation for inflammatory arthropathyis further limited by lack of radiograph for comparison. Bone and Bone Marrow: Multiple subchondral bone cysts in the metatarsalbones and phalanges, most notable along the interphalangeal joint of thethumb. Along the anterior radial margin of the head of the secondmetacarpal there is a small focus of edema-like marrow signal change andenhancement. No acute fracture. Osseous structures in satisfactoryalignment, Soft Tissues: Mild edema and enhancement in the opponens pollicis muscleand abductor pollicis brevis muscle. The flexor and extensor tendonsappear grossly intact. No significant edema in the carpal tunnel. Nodefinite evidence of acute synovitis. There may be diffuse narrowing ofthe interphalangeal joints. IMPRESSION: Evaluation is limited by motion. Evaluation for inflammatory arthropathyis further limited by lack of radiograph for comparison. Edema-like marrow signal change along the anterior radial margin of thehead of the second metatarsal with associated enhancement is nonspecificcould represent developing erosive change, radiograph could be consideredfor further characterization. Mild increased T2 signal and enhancement in the thenar eminencenonspecific could be seen with myositis. Likely diffuse narrowing of the interphalangeal joints andmetacarpophalangeal joints. Degenerative changes of the interphalangealjoint of the thumb with likely cystic change. CRITICAL RESULT: No. COMMUNICATION: Per this written report. By electronically signing this report, I, the attending physician, shwetha I have personally reviewed the images/data for the aboveexamination(s) and agree with the final edited report. Drafted by Shawna Cooper MD on 09/14/2024 3:17 PM Final report signed by Alex Metz on 09/14/2024 3:53 PM us Fernando Valenzuela MD IMG MRI PROCEDURES Final Result * (ABNORMAL) Sedimentation Rate, Automated (09/13/2024 9:29 PM EDT) Only the most recent of3 resultswithin the time period is included. Sedimentation Rate 49(H) <30 mm/hr 2024 9:47 PM EDT [facility] Blood Venous blood specimen / Unknown Venipuncture / Unknown 09/13/2024 9:29 PM EDT 09/13/2024 9:32 PM EDT Pallavi Paul DO LAB BLOOD ORDERABLES Final Resu lt [facility] [address] [place] [address] * ECHO, ADULT TRANSTHORACIC LIMITED W/ CONTRAST (09/13/2024 3:13 PM EDT) BSA 1.67 m2 DARI ISCV Height 162.0 [facility]ARI ISCV Weight 62.6 DARI ISCV LV Lat e' Velocity 6.1 cm/s [facility] ISCV LV Sept e' Sumit 3.2 cm/s [facility]ARI ISCV RV s' Sumit 11.0 cm/s [facility]ARI ISCV TAPSE 17 mm DARI ISCV Anatomical Region Laterality Modality Echocardiography Narrative 09/13/2024 3:39 PM EDT Left Ventricle: The left ventricular systolic function is normal. The LVEF is visually estimated at 55 - 60%. Pericardium: No pericardial effusion. Compared to the most recently available prior study, and allowing for differences in image quality and technique, there is no significant interval change noted. Left Ventricle No left ventricular mass or thrombus is seen. The left ventricular systolic function is normal. The LVEF is visually estimated at 55 - 60%. The left ventricular wall motion is normal. Left Atrium The left atrial size is severely increased with an indexed volume of >48 mL/m2. IVC/SVC Based on the IVC size and respiratory variation, the estimated right atrial pressure is 3mmHg. Mitral Valve There is severe mitral annular calcification. Pericardium No pericardial effusion. Extracardiac There is no pleural effusion. Study Details A limited transthoracic echocardiogram using limited 2D imaging was performed. During the study the apical, parasternal and subcostal view was captured. Definity contrast was used during the study. Height: 162.0 cm. Weight: 62.6 kg. BSA: 1.67 m2. Study Recommendation Compared to the most recently available prior study, and allowing for differences in image quality and technique, there is no significant interval change noted. Fernando Valenzuela MD CV ECHO PROCEDURES Final Result * (ABNORMAL) C-reactive protein (09/13/2024 10:00 AM EDT) Only the most recent of4 resultswithin the time period is included. CRP, Plasma 26.0(H) <=8.0 mg/L 09/13/2024 11:21 AM EDT [facility] Blood Venous blood specimen / Unknown Venipuncture / Unknown 09/13/2024 10:00 AM EDT 09/13/2024 10:25 AM EDT Narrative [facility] - 09/13/2024 11:21 AM EDT This CRP test is appropriate for assessment of infection, systemic inflammation and/or tissue injury. To assess cardiovascular disease risk order high sensitivity CRP (CRPH). us Pallavi Paul DO LAB BLOOD ORDERABLES Final Resu lt [facility] [address] [place] [id number] * (ABNORMAL) Herpes Simplex Virus (HSV) by PCR (09/12/2024 3:52 PM EDT) Pathologist [facility] Herpes Simplex Virus 1 (HSV-1) PCR Result Detected(A) Not Detected 09/13/2024 11:46 AM EDT [facility] Herpes Simplex Virus 2 (HSV-2) PCR Result Not Detected Not Detected 09/13/2024 11:46 AM EDT [facility] Swab Oral cavity structure / Unknown Non-blood Collection / Unknown 09/12/2024 3:52 PM EDT 09/12/2024 3:56 PM EDT Narrative [facility] - 09/13/2024 11:46 AM EDT The FDA approved specimen sources for this assay are CSF, cutaneous, and mucocutaneous sites. These results should be used in conjunction with other clinical tests and findings and should not be the sole basis for diagnosis or treatment of the patient. The FDA approved specimen sources for this assay are CSF, cutaneous, and mucocutaneous sites. These results should be used in conjunction with other clinical tests and findings and should not be the sole basis for diagnosis or treatment of the patient. Fernando Valenzuela MD LAB MICROBIOLOGY - GENERAL ELEONORA WEBBER Final Result [facility] [address] [place] [address] * Quantiferon TB Gold (09/12/2024 3:50 PM EDT) [facility] Quantiferon TB Gold Plus Result Negative Negative 09/13/2024 5:06 PM EDT [facility] TB Nill Value 0.120 IU/mL 09/13/2024 5:06 PM EDT [facility] TB Antigen 1 -0.0285 IU/mL 09/13/2024 5:06 PM EDT [facility] TB Antigen 2 -0.024 IU/mL 09/13/2024 5:06 PM EDT [facility] TB Mitogen 3.39 IU/mL 09/13/2024 5:06 PM EDT [facility] Blood Venous blood specimen / Unknown Venipuncture / Unknown 09/12/2024 3:50 PM EDT 09/12/2024 3:56 PM EDT Narrative [facility] - 09/13/2024 5:06 PM EDT Responses to the Mitogen positive control and occasionally to TB antigen can be above the assay range. For calculation purposes: IFN-gamma values > 10 IU/mL are handled as 10 IU/mL. us Pallavi Paul DO LAB BLOOD ORDERABLES Final Resu lt Performing Organization Address City/[facility] Co de Phone Number [facility] [address] [place] [address] * Gold Top (09/12/2024 2:43 PM EDT) Extra Hold for add-ons 09/12/2024 6:01 PM EDT [facility] Comment:Auto resulted. Blood Venous blood specimen / Unknown Venipuncture / Unknown 09/12/2024 2:43 PM EDT 09/12/2024 3:16 PM EDT us Fernando Valenzuela MD LAB BLOOD ORDERABLES Final Resu lt Performing Organization Address [facility] Co de Phone Number [facility] [address] [place] [address] * Bro Top (09/12/2024 2:43 PM EDT) Extra Hold for add-ons 09/12/2024 6:01 PM EDT [facility] Comment:Auto resulted. Blood Venous blood specimen / Unknown Venipuncture / Unknown 09/12/2024 2:43 PM EDT 09/12/2024 3:16 PM EDT us Fernando Valenzuela MD LAB BLOOD ORDERABLES Final Resu lt Performing Organization Address [facility] Co de Phone Number [facility] [address] [place] [address] * Lavender Top (09/12/2024 2:43 PM EDT) Only the most recent of4 resultswithin the time period is included. Extra Hold for add-ons 09/12/2024 6:01 PM EDT [facility] Comment:Auto resulted. Blood Venous blood specimen / Unknown Venipuncture / Unknown 09/12/2024 2:43 PM EDT 09/12/2024 3:16 PM EDT Fernando Valenzuela MD LAB BLOOD ORDERABLES Final Resu lt Performing Organization Address [facility] Co de Phone Number [facility] [address] [place] [address] * Light Green Top (09/12/2024 2:43 PM EDT) Only the most recent of2 resultswithin the time period is included. Extra Hold for add-ons 09/12/2024 6:01 PM EDT [facility] Comment:Auto resulted. Blood Venous blood specimen / Unknown Venipuncture / Unknown 09/12/2024 2:43 PM EDT 09/12/2024 3:16 PM EDT us Fernando Valenzuela MD LAB BLOOD ORDERABLES Final Resu lt Performing Organization Address [facility] Co de Phone Number [facility] [address] [place] [address] * Blood Culture (Aerobic/Anaerobet Set) (09/11/2024 5:55 PM EDT) Culture No growth at day 5 09/16/2024 8:01 PM EDT [facility] Blood Venous blood specimen / Unknown Venipuncture / Unknown 09/11/2024 5:55 PM EDT 09/11/2024 6:35 PM EDT Fernando Valenzuela MD LAB MICROBIOLOGY - GENERAL ORDE RABLES Final Result Performing Organization Address [facility] de Phone Number [facility] [address] [place] [address] * Body Fluid Culture and Gram Stain (09/11/2024 3:35 PM EDT) Only the most recent of3 resultswithin the time period is included. Culture No growth at day 4 2024 11:19 AM EDT [facility] Gram Stain Result Moderate Polymorphonuclear leukocytes 09/14/2024 11:19 AM EDT [facility] Gram Stain Result No organisms seen 09/14/2024 11:19 AM EDT [facility] Pleural Fluid Specimen from pleura obtained by thoracentesis / Unknown Non-blood Collection / Unknown 09/11/2024 3:35 PM EDT 09/11/2024 3:35 PM EDT Fernando Valenzuela MD LAB MICROBIOLOGY - GENERAL ORDE [facility] Final Result [facility] [address] [place] [address] * XR Chest 1 View (09/11/2024 1:45 PM EDT) Only the most recent of12 resultswithin the time period is included. Anatomical Region Laterality Modality Chest Digital Radiogra phy Impressions 09/11/2024 3:41 PM EDT Decreased pleural effusions and infrahilar opacities. CRITICAL RESULT: No. COMMUNICATION: Per this written report. Drafted by Amanda Chatman MD on 09/11/2024 3:39 PM Final report signed by Amanda Chatman MD on 09/11/2024 3:41 PM Narrative 09/11/2024 3:41 PM EDT CLINICAL INDICATION: if c/f pneumothorax after procedure TECHNIQUE: XR CHEST 1 VIEW COMPARISON: 09/11/2024 at 0945 hours FINDINGS: Stably positioned support devices. Sternotomy wires remain intact. Persistent small pleural effusions bilaterally, decreased in the interval. Interval decrease in infrahilar opacities. No pneumothorax. Cardiac silhouette is stably enlarged. Procedure Note Amanda Chatman MD - 09/11/2024 CLINICAL INDICATION: if c/f pneumothorax after procedure TECHNIQUE: XR CHEST 1 VIEW COMPARISON: 09/11/2024 at 0945 hours FINDINGS: Stably positioned support devices. Sternotomy wires remain intact.Persistent small pleural effusions bilaterally, decreased in the interval.Interval decrease in infrahilar opacities. No pneumothorax. Cardiacsilhouette is stably enlarged. IMPRESSION: Decreased pleural effusions and infrahilar opacities. CRITICAL RESULT: No. COMMUNICATION: Per this written report. Drafted by Amanda Chatman MD on 09/11/2024 3:39 PM Final report signed by Amanda Chatman MD on 09/11/2024 3:41 PM Júnior Johnson DO IMG XR PROCEDURES Final Res ult * SD THORACENTESIS NEEDLE/CATH PLEURA W/IMAGING, HC THORACENTESIS NEEDLE/CATH PLEURA W/IMAGING (09/11/2024 1:22 PM EDT) Narrative Júnior Johnson DO - 09/11/2024 1:22 PM EDT Júnior Johnson DO 09/11/2024 1:24 PM Thoracentesis Performed by: Júnior Johnson DO Authorized by: Júnior Johnson DO Consent: Consent obtained: Written Consent given by: Patient Risks, benefits, and alternatives were discussed: yes Risks discussed: Bleeding, infection and pneumothorax Alternatives discussed: No treatment [facility] protocol: Procedure explained and questions answered to patient or proxy's satisfaction: yes Relevant documents present and verified: yes Imaging studies available: yes Site/side marked: yes Immediately prior to procedure, a time out was called: yes Patient identity confirmed: Arm band, hospital-assigned identification number and verbally with patient Sedation: Sedation type: None Anesthesia: Anesthesia method: None Procedure details: Preparation: Patient was prepped and draped in usual sterile fashion Percutaneous Approach: yes Patient position: Sitting Location: R midscapular line Intercostal space: 6th Puncture method: Efaf-iyd-eudevf catheter Ultrasound guidance: yes Indwelling catheter: Removed following drainage Catheter size: 6 Fr Number of attempts: 1 Drainage characteristics: Serosanguinous Post-procedure details: Chest x-ray performed: yes Procedure completion: Tolerated well, no immediate complications Comments: Total 1.1L removed, labs sent and pending. CXR ordered and pending completion. us Júnior Johnson DO IN CLINIC/BEDSIDE ORDERABLE S Final Result * (ABNORMAL) Body Fluid Cell Count w/ Diff - Pleural Right (09/11/2024 1:13 PM EDT) Only the most recent of3 resultswithin the time period is included. Color, Body fluid Yellow LAB HEMATOLOGY METHOD 09/11/2024 2:07 PM EDT [facility] Appearance, Body fluid Cloudy(A) LAB HEMATOLOGY METHOD 09/11/2024 2:07 PM EDT [facility] Volume, Body fluid 5.0 cc LAB HEMATOLOGY METHOD 09/11/2024 2:07 PM EDT [facility] Fluid Container Tube 3 LAB HEMATOLOGY METHOD 09/11/2024 2:07 PM EDT [facility] Red Blood Cell Count, Body fluid 1,959 uL LAB HEMATOLOGY METHOD 09/11/2024 2:07 PM EDT [facility] Comment:Test performed by nika wills. Total Nucleated Cell Count, Body fluid 243 uL LAB HEMATOLOGY METHOD 09/11/2024 2:07 PM EDT [facility] Neutrophils %, Body fluid 20 % LAB HEMATOLOGY METHOD 09/11/2024 2:07 PM EDT [facility] Lymphocytes %, Body fluid 53 % LAB HEMATOLOGY METHOD 09/11/2024 2:07 PM EDT [facility] Monocytes/Macro phages %, Body fluid 23 % LAB HEMATOLOGY METHOD 09/11/2024 2:07 PM EDT [facility] Eosinophils %, Body fluid 0 % LAB HEMATOLOGY METHOD 09/11/2024 2:07 PM EDT [facility] Lining/Mesothel ial Cells %, Body fluid 4 % LAB HEMATOLOGY METHOD 09/11/2024 2:07 PM EDT [facility] Neutrophils Absolute (PMN), Body fluid 49 uL LAB HEMATOLOGY METHOD 09/11/2024 2:07 PM EDT [facility] Lymphocytes Absolute, Body fluid 129 uL LAB HEMATOLOGY METHOD 09/11/2024 2:07 PM EDT [facility] Monocytes/Macro phages Absolute, Body fluid 56 uL LAB HEMATOLOGY METHOD 09/11/2024 2:07 PM EDT [facility] Eosinophils Absolute, Body fluid 0 uL LAB HEMATOLOGY METHOD 09/11/2024 2:07 PM EDT [facility] Basophils Absolute, Body fluid 0 uL LAB HEMATOLOGY METHOD 09/11/2024 2:07 PM EDT [facility] Lining/Mesothel ial Cells Absolute, Body fluid 10 uL LAB HEMATOLOGY METHOD 09/11/2024 2:07 PM EDT [facility] Comment, Body fluid None LAB HEMATOLOGY METHOD 09/11/2024 2:07 PM EDT [facility] Comment:This is an appended report. These results have been appended to a previously preliminary verified report. Basophils %, Body fluid 0 % LAB HEMATOLOGY METHOD 09/11/2024 2:07 PM EDT [facility] Body Fluid Structure of right pleural cavity / Unknown Non-blood Collection / Unknown 09/11/2024 1:13 PM EDT 09/11/2024 1:25 PM EDT Júnior Johnson LAB BODY FLUIDS AND STOOLS ORDERABLES NO SPECIMEN TYPE/SOURCE Final Result Performing Organization Address City/[facility] Co de Phone Number [facility] [address] [place] [address] * Body fluid, cytospin, pathologist interpretation (09/11/2024 1:13 PM EDT) Only the most recent of3 resultswithin the time period is included. Specimen Type Body Fluid LAB HEMATOLOGY METHOD 09/13/2024 11:14 AM EDT [facility] Specimen Source, Body Fluid Pleural, Right LAB HEMATOLOGY METHOD 09/13/2024 11:14 AM EDT [facility] Clinical Diagnosis, Body Fluid Pleural effusion LAB HEMATOLOGY METHOD 09/13/2024 11:14 AM EDT [facility] Interpretation , Body Fluid Mixed inflammatory cells, no malignancy identified 09/13/2024 11:14 AM EDT [facility] Pathologist Signature, Body Fluid 09/13/2024 11:14 AM EDT [facility] Comment:Reviewed by: Simona Long MD LAB CP ASR DISCLAIMER No 09/13/2024 11:14 AM EDT [facility] Body Fluid Structure of right pleural cavity / Unknown Non-blood Collection / Unknown 09/11/2024 1:13 PM EDT 09/11/2024 1:25 PM EDT Júnior Johnson DO LAB BODY FLUIDS AND STOOLS ORDERABLES Final Result Performing Organization Address [facility] de Phone Number [facility] [address] [place] [address] * Total Protein, Pleural Fluid - Pleural Right (09/11/2024 1:12 PM EDT) Only the most recent of3 resultswithin the time period is included. Total Protein, Fluid 2.4 g/dL 09/11/2024 6:20 PM EDT [facility] Pleural Fluid Structure of right pleural cavity / Unknown Non-blood Collection / Unknown 09/11/2024 1:12 PM EDT 09/11/2024 1:24 PM EDT Narrative [facility] - 09/11/2024 6:20 PM EDT This test was developed and its performance characteristics determined by [facility]. The U.S. Food and Drug Administration has not approved or cleared this test. However, FDA clearance or approval is not currently required for clinical use. The results are not intended to be used as the sole means for clinical diagnosis or patient management decisions. Fernando Valenzuela MD LAB BODY FLUIDS AND STOOLS ELEONORA WEBBER Final Result [facility] [address] [place] [address] * Lactate Dehydrogenase, Pleural Fluid - Right (09/11/2024 1:12 PM EDT) Only the most recent of3 resultswithin the time period is included. LDH, Fluid 166 U/L 09/11/2024 6:20 PM EDT [facility] Pleural Fluid Structure of right pleural cavity / Unknown Non-blood Collection / Unknown 09/11/2024 1:12 PM EDT 09/11/2024 1:24 PM EDT Narrative [facility] - 09/11/2024 6:20 PM EDT No established reference interval. Results should be interpreted in comparison to the concentration in blood and in conjunction with the clinical context. Pleural fluid LDH and total protein measurements are used for differentiation of exudates and transudates. Light's criteria can be used to identify most pleural exudative effusions if one or more of the following criteria are present: (1) pleural nhrmd-jf-gxsmc protein ratio of >0.5, (2) pleural nwtbd-vn-pzjqs LDH ratio of >0.6, or (3) a pleural fluid LDH activity that is >2/3 the upper limit of a normal serum LDH activity. Light's criteria may misclassify ~25% of transudates as exudates in heart failure. These can be identified by calculating a xjyid-bj-vlmfhrs albumin gradient (>1.2 g/dL) and/or a oyvlo-ob-edahz protein gradient (>3.1 g/dL). Júnior [facility] LAB BODY FLUIDS AND STOOLS ORDERABLES Final Result Performing Organization Address [facility] de Phone Number [facility] [address] [place] [address] * Albumin - Pleural Right (09/11/2024 1:12 PM EDT) Only the most recent of3 resultswithin the time period is included. Albumin, Pleural Fluid 1.2 g/dL 09/11/2024 6:19 PM EDT [facility] Pleural Fluid Structure of right pleural cavity / Unknown Non-blood Collection / Unknown 09/11/2024 1:12 PM EDT 09/11/2024 1:24 PM EDT Narrative [facility] - 09/11/2024 6:19 PM EDT REPORTING RESULTS Reference Values: No established reference interval. Results should be interpreted in comparison to the concentration in blood and in conjunction with the clinical context. This test was developed and its performance characteristics determined by [facility]. The U.S. Food and Drug Administration has not approved or cleared this test; however, FDA clearance or approval is not currently required for clinical use. The results are not intended to be used as the sole means for clinical diagnosis or patient management decisions. Júnior [facility] LAB BODY FLUIDS AND STOOLS ORDERABLES Final Result Performing Organization Address [facility] Co de Phone Number [facility] [address] [place] [address] * (ABNORMAL) pH, pleural fluid (09/11/2024 1:12 PM EDT) Only the most recent of2 resultswithin the time period is included. pH, Pleural Fluid 7.50(L) 7.60 - 7.66 LAB HEMATOLOGY METHOD 09/11/2024 1:30 PM EDT [facility] Pleural Fluid Pleural fluid specimen / Unknown Non-blood Collection / Unknown 09/11/2024 1:12 PM EDT 09/11/2024 1:22 PM EDT Narrative [facility] - 09/11/2024 1:30 PM EDT Normal pleural fluid has a pH [...] and its performance characteristics determined by the [facility]. Pleural pH is measured by [...] to perform high complexity clinical laboratory testing. Júnior Johnson DO LAB BODY FLUIDS AND STOOLS ORDERABLES Final Result [facility] [address] [place] [address] * Cytology - Pleural Right (09/11/2024 1:12 PM EDT) Only the most recent of3 resultswithin the time period is included. Case Report Cytology Case: [id number] Authorizing Provider: Fernando Valenzuela MD Collected: 09/11/2024 1312 Ordering Location: [facility] Received: 09/13/2024 0937 Pathologist: Nelsy Robles MD Specimen: Pleural Fluid, Right, RIGHT PLEURAL FLUID 09/14/2024 11:40 AM EDT [facility] Final Diagnosis A. RIGHT PLEURAL FLUID - NO EVIDENCE OF MALIGNANCY - FEW MIXED INFLAMMATORY CELLS 09/14/2024 11:40 AM EDT [facility] at 1140 EDT Clinical History Pleural effusion 09/14/2024 11:40 AM EDT [facility] Previous Cancer Primary Site Other/Unknown Primary Site 09/14/2024 11:40 AM EDT [facility] Gross Description A. RIGHT PLEURAL FLUID 1000 ml's tinted, cloudy fluid processed as thin prep and cell block Cold Time: 45h 47m 09/14/2024 11:40 AM EDT [facility] Fluid Structure of right pleural cavity / Unknown 09/11/2024 1:12 PM EDT 09/13/2024 9:37 AM EDT us Fernando Valenzuela MD LAB CYTOLOGY ORDERABLES Final R esult [facility] [address] [place] [address] * Immunoglobulin G Subclasses (1, 2, 3, 4) (SO) (09/11/2024 9:24 AM EDT) IMMUNOGLOBULIN G SUBCLASS 1 1068 240 - 1118 mg/dL 09/14/2024 1:49 AM EDT [facility] ([employer]) IMMUNOGLOBULIN G SUBCLASS 2 316 124 - 549 mg/dL 09/14/2024 1:49 AM EDT [facility] ([employer]) IMMUNOGLOBULIN G SUBCLASS 3 91 21 - 134 mg/dL 09/14/2024 1:49 AM EDT [facility] ([employer]) IMMUNOGLOBULIN G SUBCLASS 4 22 1 - 123 mg/dL 09/14/2024 1:49 AM EDT [facility] ([employer]) Blood Venous blood specimen / Unknown Venipuncture / Unknown 09/11/2024 9:24 AM EDT 09/11/2024 9:30 AM EDT Narrative [facility] ([employer]) - 09/14/2024 1:49 AM EDT REFERENCE INTERVAL: Immunoglobulin G Subclass 1 The total IgG (mg/dL) can be derived from the sum of the subclass IgG1, IgG2, IgG3, and IgG4 values. However, a confirmatory and more precise total IgG is available by the turbidimetric method of quantitation for total IgG. Refer to test Immunoglobulin G, Serum ([id number]). Access complete set of age- and/or gender-specific reference intervals for this test in the [facility] Test Directory (ED01). REFERENCE INTERVAL: Immunoglobulin G Subclass 2 Access complete set of age- and/or gender-specific reference intervals for this test in the [facility] Test Directory (ED01). REFERENCE INTERVAL: Immunoglobulin G Subclass 3 Access complete set of age- and/or gender-specific reference intervals for this test in the [facility] (ED01). REFERENCE INTERVAL: Immunoglobulin G Subclass 4 Access complete set of age- and/or gender-specific reference intervals for this test in the [facility] Directory (ED01). Performed By: [facility] [address] [place] [address] [employer] Tender: Austin Bernal MD, PhD CLIA Number: [id number] us Fernando Valenzuela MD LAB REF LAB BLOOD AND FLUID ORD Final Result [facility]) [address] [place] [address] * ANCA Vasculitis Profile (09/11/2024 9:24 AM EDT) Myeloperoxidase (MPO) Ab, IgG 3 0 - 19 AU/mL 09/14/2024 3:07 PM EDT [facility] ([facility]) Serine Proteinase 3 (PR3) Ab, IgG 4 0 - 19 AU/mL 09/14/2024 3:[address] [facility] ([facility]) ANCA IFA Titer <1:20 <1:20 09/14/2024 3:07 PM EDT [facility] ([facility]) ANCA IFA Pattern None Detected None Detected 09/14/2024 3:07 PM EDT [facility] ([facility]) Blood Venous blood specimen / Unknown Venipuncture / Unknown 09/11/2024 9:24 AM EDT 09/11/2024 9:30 AM EDT Narrative [facility] [employer] [facility]) - 09/14/2024 3:07 PM EDT INTERPRETIVE INFORMATION: Myeloperoxidase Abs, IgG 19 AU/mL or Less ......... Negative 20-25 AU/mL .............. Equivocal 26 AU/mL or Greater ...... Positive Approximately 90% of patients with a P-ANCA pattern by IFA have antibodies specific for MPO. INTERPRETIVE INFORMATION: Serine Proteinase 3, IgG 19 AU/mL or Less ........ Negative 20-25 AU/mL ............. Equivocal 26 AU/mL or Greater ..... Positive Approximately 85% of patients with a C-ANCA pattern by IFA have antibodies specific for PR3. INTERPRETIVE INFORMATION: ANCA IFA Pattern Neutrophil Cytoplasmic Antibodies (C-ANCA = granular cytoplasmic staining, P-ANCA = perinuclear staining) are found in the serum of over 90 percent of patients with certain necrotizing systemic vasculitides, and usually in less than 5 percent of patients with collagen vascular disease or arthritis. Performed By: [facility] [address] [place] [id number] [employer] Tender: Austin Bernal MD, PhD CLIA Number: [id number] Fernando Valenzuela MD LAB BLOOD ORDERABLES Final Resu lt Performing Organization Address City/[facility] Co de Phone Number [facility] ([facility]) [address] [place] [id number] * Urinalysis Microscopic Examination (09/10/2024 1:16 PM EDT) Only the most recent of2 resultswithin the time period is included. Urine Urine specimen obtained by clean catch procedure / Unknown Non-blood Collection / Unknown 09/10/2024 1:16 PM EDT 09/10/2024 1:21 PM EDT Fernando Valenzuela MD LAB URINE ORDERABLES Final Resu lt Performing Organization Address City/[facility]/ZIP Co de Phone Number [facility] [address] [place] [address] * Protein, Random, Urine with Creatinine (09/10/2024 1:16 PM EDT) Protein, Urine 26 mg/dL 09/10/2024 1:42 PM EDT [facility] Creatinine, Urine 12 mg/dL 09/10/2024 1:42 PM EDT [facility] Protein/Creati nine Ratio 2.2 mg/mg Creat 09/10/2024 1:42 PM EDT [facility] Urine Urine specimen obtained by clean catch procedure / Unknown Non-blood Collection / Unknown 09/10/2024 1:16 PM EDT 09/10/2024 1:21 PM EDT us Fernando Valenzuela MD LAB URINE ORDERABLES Final Resu lt [facility] [address] [place] [address] * (ABNORMAL) Urinalysis with reflex microscopic (Culture NOT Included) (09/10/2024 1:16 PM EDT) Only the most recent of2 resultswithin the time period is included. Color, Urine Yellow LAB URINALYSIS - AUTOMATED METHOD 09/10/2024 1:38 PM EDT [facility] Clarity, Urine Clear LAB URINALYSIS - AUTOMATED METHOD 09/10/2024 1:38 PM EDT [facility] Spec [place], Urine 1.009 1.005 - 1.030 LAB URINALYSIS - AUTOMATED METHOD 09/10/2024 1:38 PM EDT [facility] pH, Urine 6.0 5.0 - 8.0 LAB URINALYSIS - AUTOMATED METHOD 09/10/2024 1:38 PM EDT [facility] Protein, Urine 30(A) Negative mg/dL LAB URINALYSIS - AUTOMATED METHOD 09/10/2024 1:38 PM EDT [facility] Glucose, Urine 250(A) Negative mg/dL LAB URINALYSIS - AUTOMATED METHOD 09/10/2024 1:38 PM EDT [facility] Ketones, Urine Negative Negative mg/dL LAB URINALYSIS - AUTOMATED METHOD 09/10/2024 1:38 PM EDT [facility] Blood, Urine Small(A) Negative LAB URINALYSIS - AUTOMATED METHOD 09/10/2024 1:38 PM EDT [facility] Bilirubin, Urine Negative Negative LAB URINALYSIS - AUTOMATED METHOD 09/10/2024 1:38 PM EDT [facility] Urobilinogen, Urine 0.2 0.2 to 1.0 mg/dL LAB URINALYSIS - AUTOMATED METHOD 09/10/2024 1:38 PM EDT [facility] Leukocytes, Urine Trace(A) Negative LAB URINALYSIS - AUTOMATED METHOD 09/10/2024 1:38 PM EDT [facility] Nitrite, Urine Negative Negative LAB URINALYSIS - AUTOMATED METHOD 09/10/2024 1:38 PM EDT [facility] RBC, Urine 3 0 to 3 /HPF 09/10/2024 1:38 PM EDT [facility] Comment:This result was prev iously suppressed from the chart. WBC, Urine 0 - 5 0 to 5 /HPF 09/10/2024 1:38 PM EDT [facility] Comment:This result was prev iously suppressed from the chart. Squamous Epithelial Cells 0 - 2 0 to 5 /HPF 09/10/2024 1:38 PM EDT [facility] Comment:This result was prev iously suppressed from the chart. Hyaline Casts 0 - 2 0 to 5 /LPF 09/10/2024 1:38 PM EDT [facility] Comment:This result was prev iously suppressed from the chart. Bacteria, Urine Negative Negative 09/10/2024 1:38 PM EDT [facility] Comment:This result was prev iously suppressed from the chart. Urine Urine specimen obtained by clean catch procedure / Unknown Non-blood Collection / Unknown 09/10/2024 1:16 PM EDT 09/10/2024 1:21 PM EDT Narrative [facility] - 09/10/2024 1:38 PM EDT Performed by manual method us Fernando Valenzuela MD LAB URINE ORDERABLES Final Resu lt [facility] [address] [place] [address] * (ABNORMAL) IG Profile (09/10/2024 3:24 AM EDT) IGA 137 75 - 400 mg/dL 09/11/2024 12:02 AM EDT [facility] IGG 1,777(H) 720 - 1,589 mg/dL 09/11/2024 12:02 AM EDT [facility] IGM 89 35 - 225 mg/dL 09/11/2024 12:02 AM EDT [facility] Blood Venous blood specimen / Unknown Venipuncture / Unknown 09/10/2024 3:24 AM EDT 09/10/2024 3:42 AM EDT us Pallavi Paul DO LAB BLOOD ORDERABLES Final Resu lt [facility] [address] [place] [address] * Anti-DNA antibody, double-stranded (09/10/2024 3:24 AM EDT) Only the most recent of3 resultswithin the time period is included. Double-Strande d DNA (dsDNA) Ab IgG IFA <1:10 <1:10 09/14/2024 3:49 PM EDT [facility] ([facility]) Blood Venous blood specimen / Unknown Venipuncture / Unknown 09/10/2024 3:24 AM EDT 09/10/2024 3:42 AM EDT Narrative [facility] ([facility]) - 09/14/2024 3:49 PM EDT INTERPRETIVE INFORMATION: Double-Stranded DNA (dsDNA) [...] recommendations for testing may be found at [email or web address]. Performed By: [facility] [address] [place] [address] [employer] Tender: Austin Bernal MD, PhD CLIA Number: [id number] us Fernando Valenzuela MD LAB BLOOD ORDERABLES Final Resu lt Performing Organization Address City/[facility]/ZIP Co de Phone Number [employer]) [address] [place] [address] * C3 complement (09/10/2024 3:24 AM EDT) Only the most recent of3 resultswithin the time period is included. C3 Complement 102 84 - 166 mg/dL 09/10/2024 9:22 AM EDT [facility] Blood Venous blood specimen / Unknown Venipuncture / Unknown 09/10/2024 3:24 AM EDT 09/10/2024 3:42 AM EDT Fernando Valenzuela MD LAB BLOOD ORDERABLES Final Resu lt Performing Organization Address City/[facility]/ZIP Co de Phone Number [facility] [address] [place] [address] * C4 complement (09/10/2024 3:24 AM EDT) Only the most recent of3 resultswithin the time period is included. C4 Complement 15 13 - 36 mg/dL 09/10/2024 9:22 AM EDT [facility] Blood Venous blood specimen / Unknown Venipuncture / Unknown 09/10/2024 3:24 AM EDT 09/10/2024 3:42 AM EDT Fernando aVlenzuela MD LAB BLOOD ORDERABLES Final Resu lt Performing Organization Address City/[facility]/[place] [address] * (ABNORMAL) Blood gas panel, venous (09/09/2024 4:50 PM EDT) pH, Venous 7.35 7.32 - 7.43 LAB HEMATOLOGY METHOD 09/09/2024 4:59 PM EDT [facility] pCO2, Venous 58(H) 37 - 52 mmHg LAB HEMATOLOGY METHOD 09/09/2024 4:59 PM EDT [facility] pO2, Venous 19(L) 25 - 40 mmHg LAB HEMATOLOGY METHOD 09/09/2024 4:59 PM EDT [facility] SO2, Measured, Venous 20(L) 65 - 80 % LAB HEMATOLOGY METHOD 09/09/2024 4:59 PM EDT [facility] Base Excess, Venous 4.9(H) -2.0 - 3.0 mmol/L LAB HEMATOLOGY METHOD 09/09/2024 4:59 PM EDT [facility] Bicarbonate, Calculated, Venous 32(H) 22 - 26 mmol/L LAB HEMATOLOGY METHOD 09/09/2024 4:59 PM EDT [facility] Hematocrit, Whole Blood 30.9(L) 34.0 - 45.0 % LAB HEMATOLOGY METHOD 09/09/2024 4:59 PM EDT [facility] Sodium, Whole Blood 133(L) 136 - 145 mmol/L LAB HEMATOLOGY METHOD 09/09/2024 4:59 PM EDT [facility] Potassium, Whole Blood 4.0 3.6 - 4.9 mmol/L LAB HEMATOLOGY METHOD 09/09/2024 4:59 PM EDT [facility] Chloride, Whole Blood 93(L) 97 - 107 mmol/L LAB HEMATOLOGY METHOD 09/09/2024 4:59 PM EDT [facility] Glucose, Whole Blood 208(H) 74 - 99 mg/dL LAB HEMATOLOGY METHOD 09/09/2024 4:59 PM EDT [facility] Lactate, Venous, Whole Blood 2.3(H) 0.5 - 2.2 mmol/L LAB HEMATOLOGY METHOD 09/09/2024 4:59 PM EDT [facility] Ionized Calcium, Whole Blood 4.5(L) 4.6 - 5.1 mg/dL LAB HEMATOLOGY METHOD 09/09/2024 4:59 PM EDT [facility] Blood Venous blood specimen / Unknown Venipuncture / Unknown 09/09/2024 4:50 PM EDT 09/09/2024 4:55 PM EDT us Vini SMITH LAB BLOOD ORDERABLES Final Resul t [facility] [address] [place] [address] * XR Chest 2 Views (09/09/2024 4:09 PM EDT) Only the most recent of5 resultswithin the time period is included. Anatomical Region Laterality Modality Chest Digital Radiogra phy Impressions 09/09/2024 5:01 PM EDT Similar appearance of the chest with medium sized right pleural effusion small left effusion and bibasilar airspace opacities CRITICAL RESULT: No. COMMUNICATION: Per this written report. Drafted by Vaughn Kwan MD on 09/09/2024 4:59 PM Final report signed by Vaughn Kwan MD on 09/09/2024 5:01 PM Narrative 09/09/2024 5:01 PM EDT CLINICAL INDICATION: shortness of air TECHNIQUE: XR CHEST 2 VIEWS COMPARISON: September 08, 2024 FINDINGS: Prior median sternotomy with bipolar pacemaker present from left subclavian approach. Left basilar airspace opacity unchanged. Medium-sized right pleural effusion with atelectatic changes appear similar. Small amount fluid in the right major fissure. Small left pleural effusion. Wedge compression changes of T12 appears similar. Scattered air-fluid levels in the upper abdomen. Procedure Note Vaughn Kwan MD - 09/09/2024 CLINICAL INDICATION: shortness of air TECHNIQUE: XR CHEST 2 VIEWS COMPARISON: September 08, 2024 FINDINGS: Prior median sternotomy with bipolar pacemaker present from leftsubclavian approach. Left basilar airspace opacity unchanged. Medium-sizedright pleural effusion with atelectatic changes appear similar. Smallamount fluid in the right major fissure. Small left pleural effusion. Wedge compression changes of T12 appears similar. Scattered air-fluid levels in the upper abdomen. IMPRESSION: Similar appearance of the chest with medium sized right pleural effusionsmall left effusion and bibasilar airspace opacities CRITICAL RESULT: No. COMMUNICATION: Per this written report. Drafted by Vaughn Kwan MD on 09/09/2024 4:59 PM Final report signed by Vaughn Kwan MD on 09/09/2024 5:01 PM us Vini SMITH IMG XR PROCEDURES Final Result * (ABNORMAL) BNP (09/09/2024 3:50 PM EDT) Only the most recent of5 resultswithin the time period is included. N-Terminal, PROBNP, Plasma 10,690(H) 0 - 899 pg/mL 09/09/2024 4:43 PM EDT [facility] Blood Venous blood specimen / Unknown Venipuncture / Unknown 09/09/2024 3:50 PM EDT 09/09/2024 4:04 PM EDT Vini Torri SMITH LAB BLOOD ORDERABLES Final Resul t Performing Organization Address City/[facility] Co de Phone Number [facility] [address] [place] [address] * EKG now - STAT (adult) (09/09/2024 3:36 PM EDT) Only the most recent of4 resultswithin the time period is included. EKG DIAGNOSIS CLASS Abnormal MUSE ECG Ventricular Rate 61 BPM MUSE ECG Atrial Rate 68 BPM MUSE ECG QRSD Interval 190 ms MUSE ECG QT Interval 546 ms MUSE ECG QTC Interval 549 ms MUSE ECG R [place] -74 degrees MUSE ECG T Wave [place] 120 degrees MUSE ECG Diagnosis Ventricular-p aced rhythm MUSE ECG Diagnosis Abnormal ECG MUSE ECG Diagnosis MUSE ECG Diagnosis Confirmed by Chris Cline ([id number]) on 09/09/2024 4:33:37 PM MUSE ECG 09/09/2024 3:36 PM EDT 09/09/2024 4:33 PM EDT us Vini Churchill PA ECG ORDERABLES Final Result Performing Organization Address [facility] Co de Phone Number MUSE ECG * VAS US Venous Duplex Upper Extremity [...] CV VASCULAR PROCEDURES Final R esult * (ABNORMAL) Iron & Total Iron Binding Capacity, Plasma (Includes Transferrin) (09/08/2024 1:33 PM EDT) Iron, Plasma 26(L) 30 - 160 ug/dL 09/08/2024 4:06 PM EDT [facility] Transferrin, Plasma 262 200 - 360 mg/dL 09/08/2024 4:06 PM EDT [facility] Total Iron Binding Capacity, Plasma 328 240 - 450 ug/mL 09/08/2024 4:06 PM EDT [facility] Transferrin Saturation 8(L) 14 - 50 % 09/08/2024 4:06 PM EDT [facility] Blood Venous blood specimen / Unknown Venipuncture / Unknown 09/08/2024 1:33 PM EDT 09/08/2024 1:33 PM EDT us Alisa L Ze DO LAB BLOOD ORDERABLES Final Res ult [facility] [address] [place] [address] * Ferritin (09/08/2024 1:33 PM EDT) [facility] Ferritin, Serum 102 13 - 150 ng/mL 09/08/2024 4:37 PM EDT [facility] Blood Venous blood specimen / Unknown Venipuncture / Unknown 09/08/2024 1:33 PM EDT 09/08/2024 1:33 PM EDT us Alisa L Ze DO LAB BLOOD ORDERABLES Final Res ult Performing Organization Address City/[facility]/ZIP Co de Phone Number [facility] [address] [place] [address] * SARS-CoV-2, Flu A, Flu B, and RSV (09/08/2024 1:09 PM EDT) [facility] SARS CoV-2/COVID-19 RNA PCR Result Not Detected Not Detected 09/09/2024 10:48 AM EDT [facility] Influenza A Virus PCR Result Not Detected Not Detected 09/09/2024 10:48 AM EDT [facility] Influenza B Virus PCR Result Not Detected Not Detected 09/09/2024 10:48 AM EDT [facility] Respiratory Syncytial Virus (RSV) PCR Result Not Detected Not Detected 09/09/2024 10:48 AM EDT [facility] Swab Nasopharyngeal structure / Unknown Non-blood Collection / Unknown 09/08/2024 1:09 PM EDT 09/08/2024 4:50 PM EDT Narrative [facility] - 09/09/2024 10:48 AM EDT [...] testing. This test was performed on the [place] Respiratory Viral Panel, a PCR-based method. Negative [...] MICROBIOLOGY - GENERAL ORD ERABLES Final Result [facility] [address] [place] [address] * RIGHT HEART CATHETERIZATION (08/18/2024 4:04 PM [...] then carried out using a 7.5F [employer]Carter catheter. Pressures were recorded as the catheter [...] the patient was transferred back to the laboratory helper holding area in good condition. Study Details [...] Co-Oximetry Mixed Venous (08/18/2024 3:52 PM EDT) [facility] POCT Oxyhemoglobin, Mixed Venous 60.8 % 08/18/2024 3:53 PM EDT [facility] [employer]er [employer] Former ID Vittitow, Ngozi 08/18/2024 3:53 PM EDT [facility] Device ID [id number] 08/18/2024 3:53 PM EDT [facility] POCT Sample Site PA 08/18/2024 3:53 PM EDT [facility] POCT Total Hemoglobin 9.7(L) 11.2 - 15.7 g/dL 08/18/2024 3:53 PM EDT [facility] 08/18/2024 3:52 PM EDT 08/18/2024 3:53 PM EDT Kenneth James MD LAB POINT OF CARE TE ST DOCKED DEVICE UNSOLICITED RESULTS Final Result [facility] [address] [place] [address] * (ABNORMAL) POCT CO-Oximitry, Venous (08/18/2024 3:50 PM EDT) Pathologist [facility] POCT OXYHEMOGLOBIN, VENOUS 65 40 - 70 % 08/18/2024 3:50 PM EDT [facility] [employer] Former ID Vijay, Ngozi 08/18/2024 3:50 PM EDT [facility] Device ID [id number] 08/18/2024 3:50 PM EDT [facility] POCT Sample Site -[facility]- 08/18/2024 3:50 PM EDT [facility] POCT Total Hemoglobin 9.7(L) 11.2 - 15.7 g/dL 08/18/2024 3:50 PM EDT [facility] Venous blood specimen / Unknown 08/18/2024 3:50 PM EDT 08/18/2024 3:50 PM EDT us Kenneth James MD LAB POINT OF CARE TE ST DOCKED DEVICE UNSOLICITED RESULTS Final Result Performing Organization Address [facility] Co de Phone Number [facility] [address] [place] [address] * Chylomicron Electrophoresis (Reflex Only) (08/17/2024 10:57 AM EDT) [facility] Chylomicron Electrophoresis Billed 08/25/2024 6:56 PM EDT [facility] ([employer]) Fluid Pleural fluid specimen / Unknown 08/17/2024 10:57 AM EDT 08/17/2024 11:10 AM EDT Narrative [facility] ([employer]) - 08/25/2024 6:56 PM EDT Performed By: [facility] [address] [place] [id number] [employer] Tender: Austin Bernal MD, PhD CLIA Number: [id number] us Boby Rouse APRN LAB REF LAB BLOOD AND FLUID ORD Final Result [facility] ([employer]) [address] [place] [address] * Triglycerides BF with RFLX to CHYLO (SO) (08/17/2024 10:57 AM EDT) Triglyceride, Fluid 27 mg/dL 08/25/2024 6:[address] [facility] ([facility]) Triglyceride Fluid Source Pleural fluid 08/25/2024 6:[address] [facility] ([facility]) Chylomicron Screen, Body Fluid Absent Absent 08/25/2024 6:[address] [facility] ([facility]) Fluid Pleural fluid specimen / Unknown 08/17/2024 10:57 AM EDT 08/17/2024 11:10 AM EDT Narrative [facility] ([facility]) - 08/25/2024 6:56 PM EDT INTERPRETIVE INFORMATION: Triglycerides, Fluid For information on body fluid reference ranges and/or interpretive guidance visit [email or web address]/bodyfluids/ This test was developed and its performance characteristics determined by [facility]. It has not been cleared or approved by the US Food and Drug Administration. This test was performed in a CLIA certified laboratory and is intended for clinical purposes. Chylomicrons were not detected. This appears to be a nonchylous fluid. INTERPRETIVE INFORMATION: Chylomicron Screen, Body Fluid This test was developed and its performance characteristics determined by [facility]. It has not been cleared or approved by the U.S. Food and Drug Administration. This test was performed in a CLIA-certified laboratory and is intended for clinical purposes. Performed By: [facility] [address] [place] [address] [employer] Tender: Austin Bernal MD, PhD CLIA Number: [id number] us Boby Rouse APRN LAB REF LAB BLOOD AND FLUID ORD Final Result [facility] ([facility] [address] [place] [address] * Amylase, Pleural Fluid (08/17/2024 10:57 AM EDT) Amylase, Pleural Fluid 6 U/L 08/17/2024 1:23 PM EDT [facility] Pleural Fluid Structure of right pleural cavity / Unknown Non-blood Collection / Unknown 08/17/2024 10:57 AM EDT 08/17/2024 11:08 AM EDT Narrative [facility] - 08/17/2024 1:23 PM EDT Reference Values: No established reference interval. Interpret with caution. This test was developed and its performance characteristics determined by [facility]. The U.S. Food and Drug [...] upper reference limit for serum and a rxont-zk-zyjvh amylase ratio greater than one. Note: Interpretive [...] FLUIDS AND STOOLS ORD ERABLES Final Result [facility] [address] [place] [address] * Cholesterol Fluid Battery (08/17/2024 10:57 AM EDT) Only the most recent of2 resultswithin the time period is included. CHOLESTEROL, FLUID 28 mg/dL 08/19/2024 1:48 PM EDT [facility] ([facility]) CHOLESTEROL FLUID SOURCE Pleural fluid 08/19/2024 1:48 PM EDT [facility] ([facility]) Pleural Fluid Structure of right pleural cavity / Unknown Non-blood Collection / Unknown 08/17/2024 10:57 AM EDT 08/17/2024 11:10 AM EDT Narrative [facility] ([facility]) - 08/19/2024 1:48 PM EDT INTERPRETIVE INFORMATION: Cholesterol, Body Fluid For information on body fluid reference ranges and/or interpretive guidance visit [email or web address]/bodyfluids/ This test was developed and its performance characteristics determined by [employer]. It has not been cleared or approved by the US Food and Drug Administration. This test was performed in a CLIA certified laboratory and is intended for clinical purposes. Performed By: [facility] [address] [place] [address] [employer] Tender: Autsin Bernal MD, PhD CLIA Number: [id number] Boby Rouse APRN LAB REF LAB BLOOD AND FLUID ORD Final Result Performing Organization Address [facility]/ZIP Co de Phone Number [facility] ([facility]) [address] [place] [address] * Adenosine Deaminase,Pleural Fluid (08/17/2024 10:57 AM EDT) ADA, Pleural Fluid 5 0 - 30 U/L 08/19/2024 3:10 PM EDT [facility] ([facility]) Pleural Fluid Structure of right pleural cavity / Unknown Non-blood Collection / Unknown 08/17/2024 10:57 AM EDT 08/17/2024 11:10 AM EDT Narrative [facility] SON[facility]) - 08/19/2024 3:10 PM EDT INTERPRETIVE INFORMATION:Adenosine Deaminase, Pleural Fluid This test was developed and its performance characteristics determined by [employer]. It has not been cleared or approved by the US Food and Drug Administration. This test was performed in a CLIA certified laboratory and is intended for clinical purposes. Performed By: [facility] [address] [place] [address] [employer] Tender: Austin Bernal MD, PhD CLIA Number: [id number] Boby Rouse APRN LAB BODY FLUIDS AND STOOLS ORDERABLES Final Result Performing Organization Address City/[facility]/ZIP Co de Phone Number [facility] ([facility]) [address] [place] [address] * AFB Culture and Acid Fast Stain - Pleural Right (08/17/2024 10:57 AM EDT) Pathologist [facility] AFB Culture No Mycobacterial Growth at 6 Weeks 09/29/2024 5:06 PM EDT [facility] Acid Fast Stain No acid fast bacilli seen 09/29/2024 5:06 PM EDT [facility] Pleural Fluid Specimen from pleura obtained by thoracentesis / Unknown Non-blood Collection / Unknown 08/17/2024 10:57 AM EDT 08/17/2024 11:14 AM EDT Boby Rouse APRN LAB MICROBIOLOGY - GENERAL ORDERABLES Final Result Performing Organization Address City/[facility]/ZIP Co de Phone Number [facility] [address] [place] [address] * Glucose - Pleural Right (08/17/2024 10:57 AM EDT) Only the most recent of2 resultswithin the time period is included. [facility] Glucose, Fluid 309 mg/dL 08/17/2024 1:14 PM EDT [facility] Pleural Fluid Structure of right pleural cavity / Unknown Non-blood Collection / Unknown 08/17/2024 10:57 AM EDT 08/17/2024 11:08 AM EDT Narrative [facility] - 08/17/2024 1:14 PM EDT [...] STOOLS ORDERABLES Final Result Performing Organization Address City/[facility]/ZIP Co de Phone Number [facility] [address] [place] [address] * (ABNORMAL) Blood gas panel, arterial (08/15/2024 5:01 AM EDT) pH, Arterial 7.46(H) 7.31 - 7.42 LAB HEMATOLOGY METHOD 08/15/2024 5:14 AM EDT [facility] pCO2, Arterial 46 35 - 48 mmHg LAB HEMATOLOGY METHOD 08/15/2024 5:14 AM EDT [facility] pO2, Arterial 70(L) >70 mmHg LAB HEMATOLOGY METHOD 08/15/2024 5:14 AM EDT [facility] SO2, Measured, Arterial 95 94 - 98 % LAB HEMATOLOGY METHOD 08/15/2024 5:14 AM EDT [facility] Base Excess, Arterial 7.4(H) -2.0 - 3.0 mmol/L LAB HEMATOLOGY METHOD 08/15/2024 5:14 AM EDT [facility] Bicarbonate, Calculated, Arterial 32(H) 22 - 26 mmol/L LAB HEMATOLOGY METHOD 08/15/2024 5:14 AM EDT [facility] Hematocrit, Whole Blood 30.3(L) 34.0 - 45.0 % LAB HEMATOLOGY METHOD 08/15/2024 5:14 AM EDT [facility] Sodium, Whole Blood 137 136 - 145 mmol/L LAB HEMATOLOGY METHOD 08/15/2024 5:14 AM EDT [facility] Potassium, Whole Blood 3.0(L) 3.6 - 4.9 mmol/L LAB HEMATOLOGY METHOD 08/15/2024 5:14 AM EDT [facility] Chloride, Whole Blood 96(L) 97 - 107 mmol/L LAB HEMATOLOGY METHOD 08/15/2024 5:14 AM EDT [facility] Glucose, Whole Blood 75 74 - 99 mg/dL LAB HEMATOLOGY METHOD 08/15/2024 5:14 AM EDT [facility] Ionized Calcium, Whole Blood 4.6 4.6 - 5.1 mg/dL LAB HEMATOLOGY METHOD 08/15/2024 5:14 AM EDT [facility] Lactate, Arterial, Whole Blood 0.7 0.5 - 1.6 mmol/L LAB HEMATOLOGY METHOD 08/15/2024 5:14 AM EDT [facility] Blood Arterial blood specimen / Unknown Arterial Puncture / Unknown 08/15/2024 5:01 AM EDT 08/15/2024 5:13 AM EDT July Vargas MD LAB BLOOD ORDERABLES Final R esult Performing Organization Address [facility] [facility]/ZIP Co de Phone Number [facility] [address] [place] [address] * Vitamin D 25 Hydroxy (08/15/2024 4:52 AM EDT) Vitamin D 25 Hydroxy 51.5 20.0 - 80.0 ng/mL 08/15/2024 6:37 AM EDT [facility] Blood Venous blood specimen / Unknown Venipuncture / Unknown 08/15/2024 4:52 AM EDT 08/15/2024 4:59 AM EDT Narrative [facility] - 08/15/2024 6:37 AM EDT Testing performed on [employer], standardized against NIST SRM 2972. When testing [...] ORDERABLES Final Re sult Performing Organization Address [facility] [place] [address] * Phosphorus (08/15/2024 4:52 AM EDT) Only the most recent of2 resultswithin the time period is included. Phosphorus, Plasma 3.2 2.5 - 4.5 mg/dL 08/15/2024 5:32 AM EDT [facility] Blood Venous blood specimen / Unknown Venipuncture / Unknown 08/15/2024 4:52 AM EDT 08/15/2024 4:59 AM EDT Arben Ibarra MD LAB BLOOD ORDERABLES Final Re sult [facility] [address] [place] [address] * (ABNORMAL) Hemoglobin A1c (08/14/2024 6:08 PM EDT) Hemoglobin A1c 7.9(H) <5.7 % 08/15/2024 11:41 AM EDT [facility] Blood Venous blood specimen / Unknown Venipuncture / Unknown 08/14/2024 6:08 PM EDT 08/14/2024 6:10 PM EDT Narrative [facility] - 08/15/2024 11:41 AM EDT HA1C Interpretive Data: Diagnosis of Diabetes: Diabetic > or = 6.5% Pre-diabetic 5.7 to 6.4% Non-diabetic < or = 5.6% Glycemic Targets for Type I and Type II Diabetics: Non- Adults <7.0% Adults <6.0% Children and Adolescents <7.5% Source: [place] [employer]. Standards of medical care in diabetes,2017. Diabetes Care.2017:40 (suppl 1):S1-S135. us Arben Ibarra MD LAB BLOOD ORDERABLES Final Re sult Performing Organization Address [facility] Co de Phone Number [facility] [address] [place] [address] * (ABNORMAL) Troponin now and 120 min (08/14/2024 2:55 PM EDT) Only the most recent of2 resultswithin the time period is included. Troponin T, High Sensitivity, 0 Hour 29(H) <14 ng/L 08/14/2024 3:43 PM EDT [facility] Blood Venous blood specimen / Unknown Venipuncture / Unknown 08/14/2024 2:55 PM EDT 08/14/2024 2:58 PM EDT us Jackson Puente MD LAB BLOOD ORDERABLES Fi nal Result Performing Organization Address City/[facility]/ZIP Co de Phone Number [facility] [address] [place] [address] * ECHO, ADULT TRANSTHORACIC COMPLETE W/ CONTRAST [...] mean PAP 25 mmHg DARI ISCV PA SD(ACCEL) 25.1 mmHg DARI ISCV PA acc slope [...] Fluid 39 mg/dL 07/16/2024 11:[address] [facility] ([facility]) Triglyceride Fluid Source Pleural fluid 07/16/2024 11:[address] [facility] ([facility]) Pleural Fluid Non-blood Collection / Unknown 07/15/2024 1:03 PM EDT 07/15/2024 1:03 PM EDT Narrative [facility] ([facility]) - 07/16/2024 11:11 PM EDT INTERPRETIVE INFORMATION: Triglycerides, Fluid For information on body fluid reference ranges and/or interpretive guidance visit [email or web address] This test was developed and its performance characteristics determined by [facility]. It has not been cleared or approved by the US Food and Drug Administration. This test was performed in a CLIA certified laboratory and is intended for clinical purposes. Performed By: [facility] [address] [place] [address] Silver Lap Machine Tender: Austin Bernal MD, PhD CLIA Number: [id number] us Marquita Arndt MD LAB REF LAB BLOOD AND FL UID ORD Final Result [facility] ([place]) [address] [place], [place] [id number] * SD THORACENTESIS NEEDLE/CATH PLEURA W/IMAGING, HC THORACENTESIS NEEDLE/CATH [...] discussed: No treatment, delayed treatment and observation [facility] protocol: Procedure explained and questions answered to [...] midaxillary line Intercostal space: 6th Puncture method: Bkeu-zpn-khqxeg catheter Ultrasound guidance: yes Indwelling catheter: Removed [...] at 3 Weeks 08/06/2024 8:50 AM EDT [facility] JAS No fungal elements seen 08/06/2024 8:50 AM EDT [facility] Pleural Fluid Specimen from pleura obtained by thoracentesis / Unknown Non-blood Collection / Unknown 07/15/2024 9:31 AM EDT 07/15/2024 9:52 AM EDT us Marquita Arndt MD LAB MICROBIOLOGY - GENER AL ORDERABLES Final Result [facility] [address] [place] [address] * Potassium (07/13/2024 3:26 PM EDT) Potassium, Plasma 3.8 3.6 - 4.9 mmol/L 07/13/2024 3:49 PM EDT [facility] Blood Venous blood specimen / Unknown Venipuncture / Unknown 07/13/2024 3:26 PM EDT 07/13/2024 3:28 PM EDT us Mason Vaughan MD LAB BLOOD ORDERABLES Final Resu lt [facility] [address] [place] [id number] * CT Angio Pulmonary Embolism (07/13/2024 10:07 [...] MD IMG CT PROCEDURES Final Result * Hernadez (ASHLEY) Antibody, IgG (07/12/2024 4:46 PM EDT) Hernadez (ASHLEY) Antibody, IgG 8 0 - 40 AU/mL 07/15/2024 4:15 PM EDT [facility]) Serum 07/12/2024 4:46 PM EDT 07/12/2024 5:06 PM EDT Narrative [facility] - 07/15/2024 4:15 PM EDT INTERPRETIVE INFORMATION: [...] associations with SLE clinical manifestations. Performed By: [facility] [address] [place] [address] Silver Lap Machine Tender: Austin Bernal MD, PhD CLIA Number: [id number] us Deejay Schneider MD LAB REF LAB BLOOD AND FLUID OR D Final Result [facility]) [address] [place] [address] * Complement, total (07/12/2024 4:46 PM EDT) Pathologist [facility] Complement Activity, Total Turbidimetric 74.8 38.7 - 89.9 U/mL 07/14/2024 11:25 PM EDT [facility]) Blood Venous blood specimen / Unknown Venipuncture / Unknown 07/12/2024 4:46 PM EDT 07/12/2024 5:07 PM EDT Charlene [facility]) - 07/14/2024 11:25 PM EDT REFERENCE INTERVAL: [...] complement alternate pathway functional (AH50, test code [id number]) activity suggests defects in the alternate pathway. Performed By: [facility] [address] [place] [address] Silver Lap Machine Tender: Austin Bernal MD, PhD CLIA Number: [id number] us Deejay Schneider MD LAB BLOOD ORDERABLES Final Res ult Performing Organization Address City/[facility] Co de Phone Number [facility] ([place]) [address] [place] [address] * (ABNORMAL) Troponin T, High Sensitivity, 2 Hour, Plasma (07/12/2024 3:24 PM EDT) [facility] Troponin T, High Sensitivity, 2 Hour 24(H) <14 ng/L 07/12/2024 4:10 PM EDT [facility] Troponin Delta 4 <10 ng/L 07/12/2024 4:10 PM EDT [facility] Troponin Delta Interpretation Not Significant 07/12/2024 4:10 PM EDT [facility] Comment:Not Significant. No acute change in troponin observed between the baseline and 2 hour samples. Blood Venous blood specimen / Unknown Venipuncture / Unknown 07/12/2024 3:24 PM EDT 07/12/2024 3:43 PM EDT us Yanet Arce MD LAB BLOOD ORDERABLES Final Re sult [facility] [address] [place] [address] * Hepatitis C Antibody - ED (01/29/2024 3:32 PM EST) [facility] Hepatitis C Antibody Negative Negative 01/29/2024 5:07 PM EST [facility] Blood Venous blood specimen / Unknown Venipuncture / Unknown 01/29/2024 3:32 PM EST 01/29/2024 4:03 PM EST us Fortino Ball MD LAB BLOOD ORDERABLES Final Result [facility] [address] [place] [address] * Dexa Bone Density (01/10/2023 10:23 AM EDT) Anatomical Region Laterality Modality L-spine Radiographic Elissa ging Narrative 01/12/2023 8:29 AM EST [facility] - Nephrology, Bone & Mineral Metabolism [address] [address] DXA Bone Densitometry Report: [01/10/2023] Subjective BMD test performed using the [employer] DXA System (analysis version: 14.10) manufactured by [employer]. REFERRING PROVIDER: Alisa Ortega DO CLINICAL INFORMATION: osteoporosis PATIENT NAME: iMchelle Felipe PATIENT AGE: 72 y.o. LEGAL SEX: [...] comparison and calculation of change in BMD). us Alisa Kunz DO IMG DXA PROCEDURES Final [...] 04/19/2015 Mammography Breast Screening Tomosynthesis Bilateral at [facility] 05/06/2017 Mammography Breast Screening Tomosynthesis Bilateral at [facility] 01/25/2020 Mammography Breast Screening Tomosynthesis Bilateral at [facility] BREAST COMPOSITION: The breasts are heterogeneously dense, which may obscure small masses. FINDINGS: There are post-biopsy clip(s) present in the the right breast. There is no evidence of suspicious masses, calcifications, or other abnormal findings. Jackson Malave MD IMG BI PROCEDURES Final Re sult from Last 3 Months or Most Recently Relevant to Health Maintenance Insurance [facility] MEDICARE Advance Directives * Full Code (Latest Code Status on File) Date Activated Date Inactivated Comments 09/09/2024 6:52 PM 09/15/2024 4:55 PM Question Answer Comments I have reviewed the capacity from the link above and, if needed, have updated to appropriate status: Yes * Full Code Date Activated Date Inactivated Comments 08/14/2024 5:12 [...] Patient has decision-making capacity? Yes Care Teams Yard Jacker Relationship Specialty Start Date End Date Alisa Kunz DO [address] [place] [phone] PCP - General Internal Medicine 03/13/21 Kodi Bustos DO [address] [phone] Surgeon Cardiothoracic Surgery 11/06/22 Sujit Arriola MD [address] [place] [address] Consulting Physician Pulmonary Disease 11/06/22 Sujit Reyes MD [address] [place] [address] Referring Physician 12/04/22 Patricia Yañez, YARD JACKER [facility] TCM Nurse 08/25/24 Zee Lazar DO [address] [place] [address] Resident 09/08/24
--- OUTSIDE RECORDS SUMMARY | 2024-10-04 10:34 | XMS_ITS | Clinical Summary ---
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 (E10.621) L97.522 (ICD-10-CM ) 04/20 Active 04/20 Patricia Sutherland Non-pressure chronic ulcer of other part of left foot with fat layer exposed Cellulitis, foot, left 345201383 (SNOMED CT) 04/20 Active 04/20 Patricia Koko Cellulitis of foot Cellulitis, toe, left 09850565 (SNOMED CT) 04/20 Active 04/20 Patricia Koko Cellulitis of toe Left atrial thrombus 189822416 (SNOMED CT) 04/20 Active 04/20 Patricia Koko Atrial thrombosis SLE (Systemic lupus erythematosus ) 20252553 (SNOMED CT) 04/20 Active 04/20 Patricia Koko Systemic lupus erythematosus Presence of cardiac pacemaker 516007369 (SNOMED CT) 04/20 Active 04/20 Patricia Sutherland Cardiac pacemaker in situ Coronary artery disease, S/P CABG 089749939 (SNOMED CT) 04/20 Active 04/20 Patricia Sutherland Arteriosclerosis of coronary artery bypass graft DM, type I 60209655 (SNOMED CT) 04/20 Active 04/20 Patricia Sutherland Type 2 diabetes mellitus Benign Essential Hypertension 72971085 (SNOMED CT) 04/20 Active 04/20 Patricia Sutherland Benign hypertension Medications Medication Instructions Start Date Stop Date Generic Name NDC Provider Iron (ferrous sulfate) (ferrous sulfate) ferrous sulfate [facility] B-12 1000 MCG CAPS every morning cya nocobalamin (vitamin b-12) 51871039503 [facility] LIVALO 4 MG TABS every night pitavas tatin calcium 58007911427 [facility] ZETIA 10 MG TABS every night ezetimibe 085543099 01 [facility] latanoprost (bulk) every evening bulk [facility] Zyrtec (cetirizine) every evening cetirizine [facility] MYCOPHENOLATE MOFETIL 500 MG TABS twice a day mycophenolat e mofetil 09525893199 [facility] CETIRIZINE HCL 10 MG TABS Take 1 tablet by mouth once a day 02/23 cetirizine 54768152542 [facility] BRIMONIDINE TARTRATE 0.2 % SOLN Apply 1 drop in eye as directed 06/14 brimonidine 23607149387 [facility] Trelegy Ellipta 200-62.5-25 MCG/INH inhaler Inhale 2 puff once a day 07/17 Trelegy Ellipta 200-62.5-25 MCG/INH inhaler [facility] HYDROXYCHLOROQUINE SULFATE 200 MG TABS Take 1 tablet by mouth once a day 12/05 hydroxychloroquine 60422107691 [facility] RISAQUAD CAPS Take 1 capsule by mouth once a day 04/18 l.acid,para-b.bifid um-s.therm 91596186491 [facility] LOSARTAN POTASSIUM 25 MG TABS Take 1 tablet by mouth once a day 11/17 losartan 70618626721 [facility] FOLIC ACID 1 MG TABS Take 1 tablet by mouth once a day folic acid 01353215229 [facility] PITAVASTATIN CALCIUM 2 MG TABS Take 1 tablet by mouth every night 02/23 pitavastatin calcium 34563789819 [facility] Insulin Glargine (TOUTREVOR SOLOSTAR SC) Inject 23 unit subcutaneously every night as directed 02/23 TOUJEO SOLOSTAR SC [facility] EZETIMIBE 10 MG TABS Take 1 tablet by mouth every night 02/23 ezetimibe 26603462100 [facility] DULOXETINE HCL 20 MG CPEP Take 1 capsule by mouth once a day 02/23 duloxetine 15465577073 [facility] BUSPIRONE HCL 5 MG TABS Take 1 tablet by mouth twice a day buspirone 40075598525 [facility] INSULIN LISPRO 100 UNIT/ML SOLN Inject 3 unit subcutaneously three times a day as directed 02/23 insulin lispro 22398555294 [facility] METOPROLOL SUCCINATE ER 25 MG VI73O-PQT Take 1 tablet by mouth once a day 12/06 metoprolol succinate 43181628140 [facility] LATANOPROST 0.005 % SOLN Administer 1 drop into both eyes every night 06/15 latanoprost 25072478711 [facility] ASPIRIN LOW DOSE 81 MG TBEC Take 1 tablet by mouth every night aspirin 48715733833 [facility] LEVOTHYROXINE SODIUM 125 MCG TABS Take 1 tablet by mouth once a day 02/23 levothyroxine 07167708931 [facility] WARFARIN SODIUM 5 MG TABS Take 1 tablet by mouth every night 04/04 warfarin 34449107976 [facility] HYDROXYCHLOROQUINE SULFATE 200 MG TABS Take 1 tablet by mouth every night 02/23 hydroxychloroquine 10955113445 [facility] AZITHROMYCIN 250 MG TABS Take 1 tablet by mouth once a day 02/23 azithromycin 26902312746 [facility] GABAPENTIN 100 MG CAPS Take 9 capsule by mouth every night 08/28 gabapentin 97473848134 [facility] DULOXETINE HCL 60 MG CPEP Take 1 capsule by mouth Daily. 60mg and 20mg in the morning 02/23 duloxetine 38603088271 [facility] Calcium Citrate-Vitamin D (CALCIUM D PO) Take 1 tablet by mouth once a day CALCIUM D PO [facility] EZETIMIBE 10 MG TABS Take 1 tablet by mouth once a day 09/20 ezetimibe 65249457992 [facility] Villar Toujeo Max U-300 SoloStar (insulin glargine u-300 conc) every morning insulin glargine u-300 conc [facility] Villar CYMBALTA 60 MG CPEP every morning duloxetine 000 72280166 [facility] CYMBALTA 20 MG CPEP every morning duloxetine 000 16875236 [facility] WARFARIN SODIUM 5 MG TABS Take 1 tablet by mouth Every Night. 04/04 warfarin 19490276806 [facility] Trelegy Ellipta 200-62.5-25 MCG/INH inhaler Inhale 2 puffs Daily. 07/17 Trelegy Ellipta 200-62.5-25 MCG/INH inhaler [facility] PITAVASTATIN CALCIUM 2 MG TABS Take 1 tablet by mouth Every Night. 02/23 pitavastatin calcium 55312766646 [facility] METOPROLOL SUCCINATE ER 25 MG [id number]-VGP Take 1 tablet by mouth Daily. 12/06 metoprolol succinate 22887002025 [facility] LOSARTAN POTASSIUM 25 MG TABS Take 1 tablet by mouth Daily. 11/17 losartan 63529183525 [facility] LEVOTHYROXINE SODIUM 125 MCG TABS Take 1 tablet by mouth Daily. 02/23 levothyroxine 93755494160 [facility] LATANOPROST 0.005 % SOLN Administer 1 drop to both eyes Every Night. 06/15 latanoprost 62811801127 [facility] RISAQUAD CAPS Take 1 capsule by mouth Daily for 14 days. 04/18 l.acid,para-b.bifid um-s.therm 76044682831 [facility] INSULIN LISPRO 100 UNIT/ML SOLN Inject 3 Units under the skin into the appropriate area as directed 3 (Three) Times a Day Before Meals. 02/23 insulin lispro 60898562163 [facility] Insulin Glargine (TOURANDYO SOLOSTAR SC) Inject 23 Units under the skin into the appropriate area as directed Every Night. 02/23 TOUJEO SOLOSTAR SC [facility] HYDROXYCHLOROQUINE SULFATE 200 MG TABS Take 1 tablet by mouth Daily. 12/05 hydroxychloroquine 97171318179 [facility] HYDROXYCHLOROQUINE SULFATE 200 MG TABS Take 1 tablet by mouth Every Night. 09/07 hydroxychloroquine 55508203737 [facility] GABAPENTIN 100 MG CAPS Take 9 capsules by mouth Every Night. 08/28 gabapentin 50064585524 [facility] FOLIC ACID 1 MG TABS Take 1 tablet by mouth Daily. 02/23 folic acid 99220226169 [facility] EZETIMIBE 10 MG TABS Take 1 tablet by mouth Daily. 09/20 ezetimibe 91042494019 [facility] EZETIMIBE 10 MG TABS Take 1 tablet by mouth Every Night. 02/23 ezetimibe 68609775063 [facility] DULOXETINE HCL 60 MG CPEP Take 1 capsule by mouth Daily. 60mg and 20mg in the morning 02/23 duloxetine 93443718034 [facility] DULOXETINE HCL 20 MG CPEP Take 1 capsule by mouth Daily. 02/23 duloxetine 88038825963 [facility] CETIRIZINE HCL 10 MG TABS Take 1 tablet by mouth Daily. 02/23 cetirizine 96296743748 [facility] CEFDINIR 300 MG CAPS Take 1 capsule by mouth Every 12 (Twelve) Hours for 5 doses. Indications: Infection of the Skin and/or Soft Tissue 04/17 cefdinir 96480939435 [facility] Calcium Citrate-Vitamin D (CALCIUM D PO) Take 1 tablet by mouth Daily. 02/23 CALCIUM D PO [facility] BUSPIRONE HCL 10 MG TABS Take 1 tablet by mouth 2 (Two) Times a Day. 02/23 buspirone 45275583996 [facility] BRIMONIDINE TARTRATE 0.2 % SOLN Apply 1 drop to eye(s) as directed by provider. 06/14 brimonidine 13643571170 [facility] AZITHROMYCIN 250 MG TABS Take 1 tablet by mouth Daily. 09/07 azithromycin 23244927091 [facility] ASPIRIN LOW DOSE 81 MG TBEC Take 1 tablet by mouth Every Night. 09/07 aspirin 91614110686 [facility] Medications Administered No information available. [...] smoking status SMOK STATUS Never smoker Toba new account interviewer smoking status Plan of Care No information [...] Description Start Date HEALTHCARE SURROGATE POWER OF TERMITE CONTROL TECHNICIAN LIVING WILL ON FILE
--- OUTSIDE RECORDS SUMMARY | 2024-10-04 10:34 | XMS_ITS | Encounter Summary ---
Author Organization [facility] Address [address] [place] [address] Care Team Providers Care Mechanical Technician Name Role Phone Alisa Kunz DO Primary Care Provider Kodi Bustos DO Unavailable [phone] Sujit Arriola MD Unavailable [phone] Sujit Reyes MD Unavailable [phone] Zully Caldwell LPN Unavailable Unavailable Ekaterina Gómez Unavailable Unavailable Reason for Visit * Reason Onset Date Comments HCN Clinical Concern/Question 07/23/2024 Encounter Details Date Type Department Care Team (Late st Contact Info) Description 07/23/2024 Telephone [facility] Internal Medicine [address] [place] [address] Alisa Kunz DO [address] [place] [address] HCN Clinical Concern/Question Social History [...] often do you attend chur ch or jewish services? 1 to 4 times [...] any time in the past 12 m [facility], were you homeless or living in [...] any time in the past 12 m [facility], were you homeless or living in a care home (including now)? No 08/15/2024 CAGE ASSESSMENT Answer [...] drink first t anselmo in the morning (EYE-PIPELINER) to steady your nerves or to get rid of a hangover? 0 08/14/2024 CAGE Questionnaire Score 0 025 Utilities Answer Date Recorded In the past 12 months has [employer], gas, oil, or water [employer] threatened to shut off services in your [...] much Not at all 08/04/2024 10:41 AM JANET Clarisa Ragland Poor appetite or overeating Not at all [...] 08/04/2024 10:41 AM EDT Liu Ragland * Question Answer Date of [...] for more information. Best contact number: Other: [phone] Optimal time of day to reach caller: [...] [facility] [address] [place] [address] Chris Pepe MD [address] [place] [address] 10/07/2024 4:00 PM EDT Appointment Cardiac Imaging [address] [place] [address] 10/14/2024 11:00 AM EDT Office Visit [facility] [address] [place] [address] Cristian Zimmer MD [address] [place] [address] 10/18/2024 7:40 AM EDT Office Visit [facility] Internal Medicine [address] [place] [address] Alisa Kunz DO [address] [facility] [address] [place] [address] 10/25/2024 10:00 AM EDT Office Visit [facility] Nephrology, Bone & Mineral Metabolism [address] [facility], [address] [place] [address] Bryon Brandon MD [address] [place] [address] 10/27/2024 1:40 PM EDT Office Visit [facility] Endocrinology [address] [place] [address] Anne-Marie Kolb, RADAR MECHANIC [address] [facility] [address] [place] [address] 02/02/2025 8:40 AM EST Office Visit [facility] Internal Medicine [address] [place] [address] Alisa Kunz DO [address] [address] documented as of this encounter [...] documented as of this encounter Care Teams Mechanical Technician Relationship Specialty Start Date End Date Alisa Kunz DO [address] [facility] [address] [place] [address] PCP - General Internal Medicine 03/13/21 Kodi Bustos DO [address] [address] Surgeon Cardiothoracic Surgery 11/06/22 Sujit Arriola MD [address] [place] [address] Consulting Physician Pulmonary Disease 11/06/22 Sujit Reyes MD [address] [place] [address] Referring Physician 12/04/22 Zully Caldwell, MARYBETH VAL[employer] [place] [address] TCM Nurse 07/16/24 08/15/24 Ekaterina Gómez Talent Development Analyst Advanced Practice Provider 08/16/24 08/16/24 documented as of this encounter
--- OUTSIDE RECORDS SUMMARY | 2024-10-04 10:34 | XMS_ITS | Encounter Summary ---
Author Organization [facility] Address [address] [place] [address] Care Team Providers Care Slitter Scorer Name Role Phone Alisa Kunz DO Primary Care Provider [phone] Kodi Bustos DO Unavailable [phone] Sujit Arriola MD Unavailable [phone] Sujit Reyes MD Unavailable [phone] Zully Caldwell LPN Unavailable Unavailable Reason for Visit * Reason Onset Date Comments HCN Clinical Concern/Question 08/06/2024 Encounter Details Date Type Department Care Team (Late st Contact Info) Description 08/06/2024 Telephone [facility] Internal Medicine [address], [address] [place] [address] Alisa Kunz DO [address] [place] [address] HCN Clinical Concern/Question Social History [...] How often do you attend chur or episcopalian services? 1 to 4 times per year 08/30/2022 Do you belong to any clubs o r organizations such as pentecostal groups, unions, fraternal or athletic groups, or [...] Recorded Patient Health Questionnaire-2 Score 0 08/04/2024 [facility] [place] of Occupat ional Health - Occupational Stress [...] drink first t anselmo in the morning (EYE-BARBED WIRE MACHINE OPERATOR) to steady your nerves or to get rid of a hangover? 0 07/12/2024 CAGE Questionnaire Score 0 025 Utilities Answer Date Recorded In the past 12 months has th e [employer], gas, oil, or water [employer] threatened to shut off services in [...] Paperwork/Documentation Request Patient Name: Michelle Felipe Type: [facility] calling to let MD know that the patient is having difficulty getting her O2 portable concentrator through DME ( [employer])/ the company says the wrong chart notes were sent and they were not signed by the physician / chart notes have to be current/ The testing needs to be from a no experience if MD cannot do the testing Due Date: 08/07/2024 Send To: [employer] Best contact number: [phone] [employer] REP for DME Optimal time of day [...] will receive notification of the communication/outcome via [employer]. documented in this encounter Plan of Treatment Upcoming Encounters Date Type Department Care Team (Late st Contact Info) Description 10/07/2024 12:50 PM EDT Office Visit [facility] Otolaryngology [address] [place] [address] Chris Pepe MD [address] [place] [address] 10/07/2024 4:00 PM EDT Appointment Cardiac Imaging [address] [place] [address] 10/14/2024 11:00 AM EDT Office Visit [facility] Medicine Specialties [address], [address] [place] [address] Cristian Zimmer MD [address] [facility] [address] [place] [address] 10/18/2024 7:40 AM EDT Office Visit [facility] Internal Medicine [address], [address] [place] [address] Alisa Kunz, [address] [place] [address] 10/25/2024 10:00 AM EDT Office Visit [facility] Nephrology, Bone & Mineral Metabolism [address] [facility], [address] [place] [address] Bryon Brandon MD [address] [place] [address] 10/27/2024 1:40 PM EDT [facility] [address] [place] [address] Anne-Marie Kolb L, VISION THERAPIST [address] [place] [address] 02/02/2025 8:40 AM EST Office Visit [facility] Internal Medicine [address], [address] [place] [address] Alisa Kunz DO [address] [place] [address] documented as of this encounter [...] documented as of this encounter Care Teams Slitter Scorer Relationship Specialty Start Date End Date Alisa Kunz DO [address] [place] [address] PCP - General Internal Medicine 03/13/21 Kodi Bustos DO [address] [address] Surgeon Cardiothoracic Surgery 11/06/22 Sujit Arriola MD [address] [place] [address] Consulting Physician Pulmonary Disease 11/06/22 Sujit Reyes MD [address] [place] [address] Referring Physician 12/04/22 Zully Caldwell LPN [employer] [address] TCM Nurse 07/16/24 08/15/24 documented as of this encounter
--- OUTSIDE RECORDS SUMMARY | 2024-10-04 10:35 | XMS_ITS | Encounter Summary ---
Author Organization [facility] Address [address] [place] [address] Care Team Providers Care Wetlands Conservation Laborer Name Role Phone Alisa Kunz DO Primary Care Provider [phone] Kodi Bustos DO Unavailable [phone] Sujit Arriola MD Unavailable [phone] Sujit Reyes MD Unavailable [phone] Patricia Yañez LPN Unavailable Unavailab le Encounter Details Date Type Department Care Team (Late st Contact Info) Description 09/06/2024 Telephone [facility] Internal Medicine [address] [place] [address] Alisa Kunz, DO [address] [place] [address] Social History Tobacco Use Types [...] 08/30/2022 How often do you attend [facility] or religion services? 1 to 4 times per year [...] Recorded Patient Health Questionnaire-2 Score 0 09/08/2024 [facility] [place] of Occupat ional Health - Occupational Stress [...] any time in the past 12 m [facility], were you homeless or living in a [...] any time in the past 12 m [facility], were you homeless or living in a long term (including now)? No 08/25/2024 CAGE ASSESSMENT Answer [...] drink first t anselmo in the morning (EYE-PHYS ASST) to steady your nerves or to get rid of a hangover? 0 08/14/2024 CAGE Questionnaire Score 0 025 Utilities Answer Date Recorded In the past 12 months has th e [employer], gas, oil, or water company threatened to [...] Telephone Encounter - Alisa Kunz DO - 09/07/2024 4:42 PM EDT Yes I can try to remove the suture tomorrow; thank you! * Telephone Encounter - Shannen Stephens - 09/07/2024 1:45 PM EDT Called pt advised no further questions * Telephone Encounter - Alisa Kunz DO - 09/07/2024 9:15 AM EDT Agree with ER but if she declines: has she tried contacting cardiology? Is she taking the below regimen? Will continue maintenance diuresis with PO lasix 40 mg and spironolactone 12.5mg daily. * Telephone Encounter - Sheikh Madison K - 09/06/2024 3:16 PM EDT Clinical Concern/Question Reason for Call: June with [employer] saw pt today. Pts weight was 135.3 and on 09/02 pt states it was 127.8. Also advising pt has some redness on her index finger with some swelling. Almost looks like a bug bite. No swelling to ankles per readings but pt does get shortness of breath. Oxygen was 97 on 2 liters. Lung sounds were clear. Requesting verbal start of care. Best contact number: Other: [phone] Optimal time of day to reach caller: ANYTIME Additional comments/information from caller: Verbal for HH and updates Note: Please do not reply to this message. Follow-up communication and further actions as a result of this message need to be communicated with the patient directly, if the patient is not active onMyChart. If the patient is active on MyChart, they will receive notification of the communication/outcome via [employer]. documented in this encounter Plan of Treatment Upcoming Encounters Date Type Department Care Team (Late st Contact Info) Description 10/07/2024 12:50 PM EDT Office Visit [facility] Otolaryngology [address] [place] [address] Chris Pepe MD [address] [place] [address] 10/07/2024 4:00 PM EDT Appointment Cardiac Imaging [address] [place] [address] 10/14/2024 11:00 AM EDT Office Visit [facility] Medicine Specialties [address], 2nd [place] [address] Cristian Zimmer MD [address] [place] [address] 10/18/2024 7:40 AM EDT Office Visit [facility] Internal Medicine [address], [address] [place] [address] Alisa Kunz, DO [address] [place] [address] 10/25/2024 10:00 AM EDT Office Visit [facility] Nephrology, Bone & Mineral Metabolism [address] [facility] [facility], [address] [place] [address] Bryon Brandon MD [address] [place] [address] 10/27/2024 1:40 PM EDT Office Visit [facility] Endocrinology [address] [place] [address] Anne-Marie Kolb L, INJECTION MOULDING MACHINE OPERATOR [address] [place] [address] 02/02/2025 8:40 AM EST Office Visit [facility] Internal Medicine [address] [place] [address] Alisa Kunz, DO [address] [place] [address] documented as of this encounter [...] documented as of this encounter Care Teams Wetlands Conservation Laborer Relationship Specialty Start Date End Date Alisa Kunz DO [address] [place] [address] PCP - General Internal Medicine 03/13/21 Kodi Bustos DO [address] [address] Surgeon Cardiothoracic Surgery 11/06/22 Sujit Arriola MD [address] [place] [address] Consulting Physician Pulmonary Disease 11/06/22 Sujit Reyes MD [address] [place] [address] Referring Physician 12/04/22 Patricia Yañez LPN [facility] TCM Nurse 08/25/24 documented as of this encounter
--- OUTSIDE RECORDS SUMMARY | 2024-10-04 10:35 | XMS_ITS | Encounter Summary ---
Author Organization [facility] Address [address] [place] [address] Care Team Providers Care Credit Product Analyst Name Role Phone Alisa Kunz DO Primary Care Provider [phone] Kodi Bustos DO Unavailable [phone] Sujit Arriola MD Unavailable [phone] Sujit Reyes MD Unavailable [phone] Patricia Yañez LPN Unavailable Unavailab le Encounter Details Date Type Department Care Team (Late st Contact Info) Description 09/07/2024 Telephone [facility] Medicine Specialties [address] [place] [address] [place] [address] Social History Tobacco Use Types Packs/Day Years [...] week 08/30/2022 How often do you attend [facility] or evangelical services? 1 to 4 times per year 08/30/2022 Do you belong to any clubs o r organizations such as shinto groups, unions, fraternal or athletic groups, or [...] Recorded Patient Health Questionnaire-2 Score 0 09/08/2024 [facility] of Occupat [...] living in a longterm (including now)? No 08/25/2024 CAGE ASSESSMENT Answer [...] drink first t anselmo in the morning (EYE-DOUBLE END CHUCKING MACHINE OPERATOR) to steady your nerves or [...] * Telephone Encounter - Charo Donaldson - 09/07/2024 11:12 AM EDT Patient called She's having a lot of issues that she believes are related to her lupus She's had to have several thoracenteces - this has been occurring for months Sores in her mouth Sores all over her body Swelling in her hands and fingers along with blisters She's currently on mycophenolate and plaquenil She would like to speak to her arbitrator - but she would like someone different from Dr. Osborne CB: [phone] documented in this encounter Plan of Treatment Upcoming Encounters Date Type Department Care Team (Late st Contact Info) Description 10/07/2024 12:50 PM EDT Office Visit [facility] Otolaryngology [address]rd [place] [address] Chris Pepe MD [address] [place] [address] 10/07/2024 4:00 PM EDT Appointment Cardiac Imaging [address] [place] [address] 10/14/2024 11:00 AM EDT Office Visit [facility] Medicine Specialties [address] [place] [address] Cristian Zimmer MD [address] [place] [address] 10/18/2024 7:40 AM EDT Office Visit [facility] Internal Medicine [address], [address] [place] [address] Alisa Kunz, DO [address] [place] [address] 10/25/2024 10:00 AM EDT Office Visit [facility] Nephrology, Bone & Mineral Metabolism [address] [facility], [address] [place] [address] Bryon Brandon MD [address] [place] [address] 10/27/2024 1:40 PM EDT Office Visit [facility] Endocrinology [address] [place] [address] Anne-Marie Kolb L, SYSTEMS ADMIN [address] [facility] [address] [place] [address] 02/02/2025 8:40 AM EST Office Visit [facility] Internal Medicine [address] [place] [address] Alisa Kunz, DO [address] [place] [address] documented as of this encounter [...] documented as of this encounter Care Teams Credit Product Analyst Relationship Specialty Start Date End Date Alisa Kunz DO [address] [place] [address] PCP - General Internal Medicine 03/13/21 Kodi Bustos DO [address] [address] Surgeon Cardiothoracic Surgery 11/06/22 Sujit Arriola MD [address] [place] [address] Consulting Physician Pulmonary Disease 11/06/22 Sujit Reyes MD [address] [place] [address] Referring Physician 12/04/22 Patricia Yañez LPN [facility] TCM Nurse 08/25/24 documented as of this encounter
--- OUTSIDE RECORDS SUMMARY | 2024-10-04 10:35 | XMS_ITS | Encounter Summary ---
Author Organization [facility] Address [address] [place] [address] Care Team Providers Care Manager Harbor Name Role Phone ZeAlisa willett Torri DO Primary Care Provider [phone] Kodi Bustos DO Unavailable [phone] Sujit Arriola MD Unavailable [phone] Sujit Reyes MD Unavailable [phone] Patricia Yañez LPN Unavailable Unavailab le Reason for Visit * Reason Onset Date Comments Med Refill 09/06/2024 Encounter Details Date Type Department Care Team (Late st Contact Info) Description 09/06/2024 Refill [facility] Endocrinology [address] [place] [address] Anne-Marie Kolb, GLUE MOUNTER OPERATOR [address] [facility] [address] [place] [address] Type 1 diabetes mellitus with other specified complication (CMS/HCC); Dyslipidemia Social History Tobacco Use Types Packs/Day Years [...] family, friends, or neighbors? Once a week 06/23/20 23 How often do you get togethe [...] drink first t anselmo in the morning (EYE-TECHNICIAN ASSISTANT) to steady your nerves or to get rid of a hangover? 0 08/14/2024 CAGE Questionnaire Score 0 025 Utilities Answer Date Recorded In the past 12 months has th e [place], gas, oil, or water company threatened to [...] encounter Miscellaneous Notes * Telephone Encounter - Radha Nunez - 09/06/2024 12:23 PM EDT 1 medication(s) has been approved per protocol. documented in this encounter Plan of Treatment Upcoming Encounters Date Type Department Care Team (Late st Contact Info) Description 10/07/2024 12:50 PM EDT [facility] Otol[facility]ology [address] [place] [address] Chris Pepe MD [address] [place] [address] 10/07/2024 4:00 PM EDT Appointment Cardiac Imaging [address] [place] [address] 10/14/2024 11:00 AM EDT [facility] Medicine Specialties [address] [place] [address] Cristian Zimmer MD [address] [place] [address] 10/18/2024 7:40 AM EDT Office Visit [facility] Internal Medicine [address], 3rd [place] [address] Alisa Kunz, DO [address] [place] [address] 10/25/2024 10:00 AM EDT [facility] Visit [facility] Nephrology, Bone & Mineral Metabolism [address] [facility], [address] [place] [address] Bryon Brandon MD [address] [place] [address] 10/27/2024 1:40 PM EDT Office Visit [facility] Endocrinology [address] [place] [address] Anne-Marie Kolb L, GLUE MOUNTER OPERATOR [address] [facility] [address] [place] [address] 02/02/2025 8:40 AM EST Office Visit [facility] Internal Medicine [address]rd [place] [address] Alisa Kunz, DO [address] [place] [address] documented as of this encounter Visit Diagnoses Diagnosis Type 1 diabetes mellitus with other specified complication (CMS/HCC) Dyslipidemia Other and unspecified hyperlipidemia documented in this encounter Additional Health Concerns Assessment Noted Time PHQ-9 Depression Total Score: 8 07/22/19 9:23 AM EDT A fall risk assessment has been complete d for the patient 08/04/2024 10:41 AM EDT A Body Mass Index follow-up plan has been documented for the patient 08/24/2024 2:26 PM EDT documented as of this encounter Care Teams Manager Harbor Relationship Specialty Start Date End Date Alisa Kunz DO [address] [place] [address] PCP - General Internal Medicine 03/13/21 Kodi Bustos DO [address] [address] Surgeon Cardiothoracic Surgery 11/06/22 Sujit Arriola MD [address] [place] [address] Consulting Physician Pulmonary Disease 11/06/22 Sujit Reyes MD [address] [place] [address] Referring Physician 12/04/22 Patricia Yañez LPN [facility] TCM Nurse 08/25/24 documented as of this encounter
--- OUTSIDE RECORDS SUMMARY | 2024-10-04 10:35 | XMS_ITS | Encounter Summary ---
Author Organization [facility] Address [address] [place] [address] Care Team Providers Care Crusher Setter Name Role Phone Alisa Kunz DO Primary Care Provider [phone] Kodi Bustos DO Unavailable [phone] Sujit Arriola MD Unavailable [phone] Sujit Reyes MD Unavailable [phone] Patricia Yañez LPN Unavailable Unavailab Zee Lr DO Unavailable [phone] Encounter Details Date Type Department Care Team (Late st Contact Info) Description 09/06/2024 Telephone [facility] Medicine Specialties [address]nd [place] [address] [place] [address] Social History Tobacco Use Types Packs/Day Years [...] you attend [facility] or temple services? 1 to 4 [...] Recorded Patient Health Questionnaire-2 Score 0 09/08/2024 [facility] of Occupat ional Health - [...] any time in the past 12 m [facility], were you homeless or living [...] any time in the past 12 m [facility], were you homeless or living in a penitentiary (including now)? No 08/25/2024 CAGE ASSESSMENT Answer [...] drink first t anselmo in the morning (EYE-MOTTLE LAY UP OPERATOR) to steady your nerves or to get rid of a hangover? 0 08/14/2024 CAGE Questionnaire Score 0 025 Utilities Answer Date Recorded In the past 12 months has [employer], gas, oil, or water [employer] threatened to shut off services in your [...] Date of Assessment Author No Risk Indicated 09/08/2024 11:19 AM Shashank Cooper * If you checked off any problems [...] to be (Past 1 Month) No 025 11:19 AM Shashank Barreto 2. Non-Specific Active Suici dillon Thoughts (Past 1 Month) No 09/08/2024 11:19 AM EDT Adalid Burrows 6. Suicidal Behavior (Lifetime) No 11:19 AM Shashank Barreto documented as of this encounter Miscellaneous Notes * Telephone Encounter - Charo Donaldson - 09/06/2024 2:45 PM EDT Patient called She recently had a thoracentesis in the ER a couple of weeks ago She still has the stitches in from that and wasn't told what to do She's already starting to get fluid buildup again Productive cough Some pain Her next appointment with Dr. Shoemaker is on 10/14/24 She'd like to speak to someone in the meantime CB: [phone] documented in this encounter Plan of Treatment Upcoming Encounters Date Type Department Care Team (Late st Contact Info) Description 10/07/2024 12:50 PM EDT Office Visit [facility] Otolaryngology [address] [place] [address] Chris Pepe MD [address] [facility] [address] [place] [address] 10/07/2024 4:00 PM EDT Appointment Cardiac Imaging [address] [place] [address] 10/14/2024 11:00 AM EDT Office Visit [facility] Medicine Specialties [address] [place] [address] Cristian Zimmer MD [address] [place] [address] 10/18/2024 7:40 AM EDT Office Visit [facility] Internal Medicine [address], [address]rd [place] [address] Alisa Kunz, DO [address] [place] [address] 10/25/2024 10:00 AM EDT Office Visit [facility] Nephrology, Bone & Mineral Metabolism [address] [facility] [facility], [address] [place] [address] Bry[place] Brandon MD [address] [place] [address] 10/27/2024 1:40 PM EDT Office Visit [facility] Endocrinology [address] [place] [address] Anne-Marie Kolb L, VALIDATION SCIENTIST [address] [place] [address] 02/02/2025 8:40 AM EST Office Visit [facility] Internal Medicine [address], [address] [place] [address] Alisa Kunz DO [address] [place] [address] documented as of this encounter [...] documented as of this encounter Care Teams Crusher Setter Relationship Specialty Start Date End Date Alisa Kunz DO [address] [place] [address] PCP - General Internal Medicine 03/13/21 Kodi Bustos DO [address] [address] Surgeon Cardiothoracic Surgery 11/06/22 Sujit Arriola MD [address] [place] [address] Consulting Physician Pulmonary Disease 11/06/22 Sujit Reyes MD [address] [place] [address] Referring Physician 12/04/22 Patricia Yañez LPN [facility] TCM Nurse 08/25/24 Zee Lazar DO [address] [place] [address] Resident 09/08/24 documented as of this encounter
--- OUTSIDE RECORDS SUMMARY | 2024-10-04 10:35 | XMS_ITS | Encounter Summary ---
Author Organization [facility] Address [address] [place] [address] Care Team Providers Care Order Entry Administrator Name Role Phone ZeAlisa willett Torri DO Primary Care Provider Kodi Bustos DO Unavailable [phone] Sujit Arriola MD Unavailable [phone] Sujit Reyes MD Unavailable [phone] Patricia Yañez LPN Unavailable Unavailab le Reason for Visit * Reason Comments Med Refill Encounter Details Date Type Department Care Team (Late st Contact Info) Description 09/06/2024 Refill [facility] [address] [place] [address] Anne-Marie Kolb, SAWMILL HAND [address] [facility] [address] [place] [address] Type 1 diabetes mellitus with [...] Recorded Patient Health Questionnaire-2 Score 0 08/04/2024 [facility] [place] of Occupat ional Health - Occupational Stress [...] time in the past [address] [facility], were you homeless or living [...] drink first t anselmo in the morning (EYE-INVESTIGATOR CASH SHORTAGE) to steady your nerves or to get rid of a hangover? 0 08/14/2024 CAGE Questionnaire Score 0 025 Utilities Answer Date Recorded In the past 12 months has th e [email or web address], gas, oil, or water company threatened to [...] Telephone Encounter - Radha Nunez - 09/06/2024 1:26 PM EDT 1 medication(s) has been denied per protocol due to: Duplicate request documented in this encounter Plan of Treatment Upcoming Encounters Date Type Department Care Team (Late st Contact Info) Description 10/07/2024 12:50 PM EDT [facility] [address], [address] [place] [address] Chris Pepe MD [address] [place] [address] 10/07/2024 4:00 PM EDT Appointment Cardiac Imaging [address] [place] [address] 10/14/2024 11:00 AM EDT Office Visit [facility] Medicine Specialties [address], 2[address] [place] [address] Cristian Zimmer MD [address] [place] [address] 10/18/2024 7:40 AM EDT Office Visit [facility] Internal Medicine [address], 3[address] [place] [address] Alisa Kunz, DO [address] [place] [address] 10/25/2024 10:00 AM EDT Office Visit [facility] Nephrology, Bone & Mineral Metabolism [address] [facility], [address] [place] [address] Bryon Brandon MD [address] [place] [address] 10/27/2024 1:40 PM EDT Office Visit [facility] Endocrinology [address] [place] [address] Anne-Marie Kolb L, SAWMILL HAND [address] [place] [address] 02/02/2025 8:40 AM EST Office Visit [facility] Internal Medicine [address], [address] [place] [address] Alisa Kunz, DO [address] [place] [address] documented as of this encounter [...] documented as of this encounter Care Teams Order Entry Administrator Relationship Specialty Start Date End Date Alisa Kunz DO [address] [place] [id number] PCP - General Internal Medicine 03/13/21 Kodi Bustos DO [address] [address] Surgeon Cardiothoracic Surgery 11/06/22 Sujit Arriola MD [address] [place] [address] Consulting Physician Pulmonary Disease 11/06/22 Sujit Reyes MD [address] [place] [address] Referring Physician 12/04/22 Patricia Yañez LPN [facility] TCM Nurse 08/25/24 documented as of this encounter
--- OUTSIDE RECORDS SUMMARY | 2024-10-04 10:35 | XMS_ITS | Encounter Summary ---
Author Organization [facility] Address [address] [place] [address] Care Team Providers Care Plate [place] Hand Name Role Phone Alisa Kunz DO Primary Care Provider [phone] Kodi Bustos DO Unavailable [phone] Sujit Arriola MD Unavailable [phone] Sujit Reyes MD Unavailable [phone] Patricia Yañez LPN Unavailable Unavailab Zee Lr DO Unavailable [phone] Encounter Details Date Type Department Care Team (Late st Contact Info) Description 09/07/2024 Telephone [facility] Medicine Special[facility] [address], [address] [place] [address] Sadiq Osborne, SHANA [address] [id number] Social History Tobacco Use Types Packs/Day Years [...] often do you attend chur ch or spiritism services? 1 to 4 times [...] drink first t anselmo in the morning (EYE-CLIENT CARE SPECIALIST) to steady your nerves or to get rid of a hangover? 0 08/14/2024 CAGE Questionnaire Score 0 025 Utilities Answer Date Recorded In the past 12 months has th e [employer], gas, oil, or water company threatened to [...] Date of Assessment Author No Risk Indicated 09/10/2024 8:00 PM EDT Sofia Gamino, RN * If you checked off any [...] 1 Month) No 025 8:00 PM EDT Sofia Cornoado, RN 2. Non-Specific Active Suici dillon Thoughts (Past 1 Month) No 09/10/2024 8:00 PM EDT Aimee Coronado, RN 6. Suicidal Behavior (Lifetime) No 8:00 PM EDT Sofia Coronado, RN documented as of this encounter Miscellaneous Notes * Telephone Encounter - Nilam Andrade - 09/07/2024 3:50 PM EDT Clinical Concern/Question Reason for Call: Called pt to r/s bumped apt. Pt states she cannot wait until first available whichis March. She states she is having increased pain, her hand is swollen she can't move it, it's red, she has sores in her mouth. Please call. Best contact number: [phone] (mobile) Optimal time of day to reach caller: ANYTIME Additional comments/information from caller: None Note: Please do not reply to this message. Follow-up communication and further actions as a result of this message need to be communicated with the patient directly, if the patient is not active onMyChart. If the patient is active on MyChart, they will receive notification of the communication/outcome via [employer]. documented in this encounter Plan of Treatment Upcoming Encounters Date Type Department Care Team (Late st Contact Info) Description 10/07/2024 12:50 PM EDT Office Visit [facility] Otolaryngology [address] [place] [address] Chris Pepe MD [address] [place] [address] 10/07/2024 4:00 PM EDT Appointment Cardiac Imaging [address] [place] [address] 10/14/2024 11:00 AM EDT Office Visit [facility] Medicine Specialties [address], [address] [place] [address] Cristian Zimmer MD [address] [place] [address] 10/18/2024 7:40 AM EDT Office Visit [facility] Internal Medicine [address], 3rd [place] [address] Alisa Kunz DO [address] [place] [address] 10/25/2024 10:00 AM EDT Office Visit [facility] [place] Nephrology, Bone & Mineral Metabolism [address] [facility], [address] [place] [address] Bryon [place] MD [address] [place] [address] 10/27/2024 1:40 PM EDT Office Visit [facility] Endocrinology [address] [place] [address] Anne-Marie Kolb L, TAG MACHINE OPERATOR [address] [facility] [address] [place] [address] 02/02/2025 8:40 AM EST Office Visit [facility] Internal Medicine [address], 3rd [place] [address] Alisa Kunz DO [address] [place] [address] documented as of this encounter [...] documented as of this encounter Care Teams Plate [place] Hand Relationship Specialty Start Date End Date Alisa Kunz DO [address] [place] [address] PCP - General Internal Medicine 03/13/21 Kodi Bustos DO [address] [address] Surgeon Cardiothoracic Surgery 11/06/22 Sujit Arriola MD [address] [place] [address] Consulting Physician Pulmonary Disease 11/06/22 Sujit Reyes MD [address] [place] [address] Referring Physician 12/04/22 Patricia Yañez LPN [facility] TCM Nurse 08/25/24 Zee Lazar DO [address] [place] [address] Resident 09/08/24 documented as of this encounter
--- OUTSIDE RECORDS SUMMARY | 2024-10-04 10:35 | XMS_ITS | Encounter Summary ---
Author Organization [facility] Address [address] [place] [address] Care Team Providers Care Public Speaker Name Role Phone Alisa Kunz DO Primary Care Provider [phone] Kodi Bustos DO Unavailable [phone] Sujit Arriola MD Unavailable [phone] Sujit Reyes MD Unavailable [phone] Patricia Yañez LPN Unavailable Unavailab Zee Lr DO Unavailable [phone] Reason for Visit * Reason Onset Date Comments HCN Clinical Concern/Question 09/03/2024 Pl ease see note... Encounter Details Date Type Department Care Team (Late st Contact Info) Description 09/03/2024 Telephone [facility] Internal Medicine [address], 3rd [place] [address] Alisa Kunz DO [address] [place] [address] HCN Clinical Concern/Question (Please see note...) Social History Tobacco Use Types Packs/Day Years [...] any clubs o r organizations such as temple groups, unions, fraternal or athletic groups, or [...] Recorded Patient Health Questionnaire-2 Score 0 08/04/2024 [facility] of Occupat ional Health - [...] drink first t anselmo in the morning (EYE-FOREPART RASPER) to steady your nerves or to get rid of a hangover? 0 08/14/2024 CAGE Questionnaire Score 0 025 Utilities Answer Date Recorded In the past 12 months has th e [employer], gas, oil, or water [facility] threatened to shut off services in your [...] Miscellaneous Notes * Telephone Encounter - Mary Guillen - 09/03/2024 11:09 AM EDT Clinical Concern/Question Reason for Call: Patient is returning missed call from social services and is asking for a call back. Best contact number: [phone] (mobile) Optimal time of day to reach caller: ANYTIME Additional comments/information from caller: Not Applicable Note: Please do not reply to this [...] Description 10/07/2024 12:50 PM EDT Office Visit [facility] Otolaryngology [address], [address] [place] [address] Chris Pepe MD [address] [facility] [address] [place] [address] 10/07/2024 4:00 PM EDT Appointment Cardiac Imaging [address] [place] [address] 10/14/2024 11:00 AM EDT Office Visit [facility] Medicine Specialties [address], [address] [place] [address] Cristian Zimmer MD [address] [facility] [address] [place] [address] 10/18/2024 7:40 AM EDT Office Visit [facility] Internal Medicine [address], 3rd [place] [address] Alisa Kunz DO [address] [place] [address] 10/25/2024 10:00 AM EDT Office Visit [facility] Nephrology, Bone & Mineral Metabolism [address] [facility], [address] [place] [address] Bryon [place] MD [address] [place] [address] 10/27/2024 1:40 PM EDT Office Visit [facility] Endocrinology [address] [place] [address] Anne-Marie Kolb L, PRINT BINDING AND FINISHING WORKER [address] [place] [address] 02/02/2025 8:40 AM EST Office Visit [facility] Internal Medicine [address], 3rd [place] [address] Alisa Kunz DO [address] [place] [address] documented as of this encounter [...] documented as of this encounter Care Teams Public Speaker Relationship Specialty Start Date End Date Alisa Kunz DO [address] [place] [address] PCP - General Internal Medicine 03/13/21 Kodi Bustos DO [address] [address] Surgeon Cardiothoracic Surgery 11/06/22 Sujit Arriola MD [address] [place] [address] Consulting Physician Pulmonary Disease 11/06/22 Sujit Reyes MD [address] [place] [address] Referring Physician 12/04/22 Patricia Yañez LPN [facility]ED[facility] TCM Nurse 08/25/24 Zee Lazar DO [address] [place], [place] [id number] Resident 09/08/24 documented as of this encounter
--- OUTSIDE RECORDS SUMMARY | 2024-10-04 10:36 | XMS_ITS | Encounter Summary ---
Author Organization [facility] Address [address] [place] [address] Care Team Providers Care Yeast Pusher Name Role Phone Alisa Kunz DO Primary Care Provider [phone] Kodi Bustos DO Unavailable [phone] Sujit Arriola MD Unavailable [phone] Sujit Reyes MD Unavailable [phone] Patricia Yañez LPN Unavailable Unavailab Zee Lr DO Unavailable [phone] Encounter Details Date Type Department Care Team (Latest Contact Info) Description 09/14/2024 Travel Social History Tobacco Use Types Packs/Day [...] often do you attend chur ch or nondenominational services? 1 to 4 times per year 08/30/2022 Do you belong to any clubs o r organizations such as latter day groups, unions, fraternal or athletic groups, or [...] Recorded Patient Health Questionnaire-2 Score 0 09/08/2024 [facility] of Occupat ional Health - Occupational Stress [...] drink first t anselmo in the morning (EYE-SAUSAGE MEAT TRIMMER) to steady your nerves or to get rid of a hangover? 0 08/14/2024 CAGE Questionnaire Score 0 025 Utilities Answer Date Recorded In the past 12 months has th e [employer], gas, oil, or water [employer] threatened to shut off services in your [...] Date of Assessment Author No Risk Indicated 09/14/2024 8:00 PM EDT Candace Horne RN * Question Answer Date of Assessment Author 1. Wish to be (Past 1 Month) No 025 8:00 PM EDT Candace Horne RN 2. Non-Specific Active Suici dillon Thoughts (Past 1 Month) No 09/14/2024 8:00 PM EDT Courtney Horne RN 6. Suicidal Behavior (Lifetime) No 8:00 PM EDT Candace Horne RN documented as of this encounter Plan of Treatment Upcoming Encounters Date Type Department Care Team (Late st Contact Info) Description 10/07/2024 12:50 PM EDT [facility] [address] [place] [address] Chris Pepe MD [address] [place] [address] 10/07/2024 4:00 PM EDT Appointment Cardiac Imaging [address] [place] [address] 10/14/2024 11:00 AM EDT [facility] Medicine Specialties [address], [address] [place] [address] Cristian Zimmer MD [address] [place] [address] 10/18/2024 7:40 AM EDT Office Visit [facility] Internal Medicine [address], [address]rd [place] [address] Alisa Kunz, DO [address] [facility] [address] [place] [address] 10/25/2024 10:00 AM EDT Office Visit [facility] Nephrology, Bone & Mineral Metabolism [address] [facility], [address] [place] [address] Bryon [place] MD [address] [place] [address] 10/27/2024 1:40 PM EDT Office Visit [facility] Endocrinology [address] [place] [address] Anne-Marie Kolb L, SUPERVISOR FISHING [address] [facility] 125 [place] [address] 02/02/2025 8:40 AM EST Office Visit [facility] Internal Medicine [address], [address] [place] [address] Alisa Kunz, DO [address] [place] [address] documented as of this encounter [...] documented as of this encounter Care Teams Yeast Pusher Relationship Specialty Start Date End Date Alisa Kunz DO [address] [place] [address] PCP - General Internal Medicine 03/13/21 Kodi Bustos DO [address] [place] [address] Surgeon Cardiothoracic Surgery 11/06/22 Sujit Arriola MD [address] [place] [address] Consulting Physician Pulmonary Disease 11/06/22 Sujit Reyes MD [address] [place] [address] Referring Physician 12/04/22 Patricia Yañez LPN [facility] TCM Nurse 08/25/24 Zee Lazar DO [address] [place] [id number] Resident 09/08/24 documented as of this encounter
--- OUTSIDE RECORDS SUMMARY | 2024-10-04 10:36 | XMS_ITS | Encounter Summary ---
Author Organization [facility] Address [address] [place] [address] Care Team Providers Care Hospice Rn Name Role Phone Alisa Kunz Primary Care Provider [phone] Encounter Details Date Type Department Care Team (Latest Contact Info) Description 08/27/2024 Travel Social History Tobacco Use Types Packs/Day [...] Description 12/02/2024 3:30 PM EDT Office Visit [facility] CARDIOLOGY [address] [place] [address] Sujit Reyes MD [address] [facility] [address] [place], [place] [phone] 01/19/2025 1:45 PM EST Office Visit [facility] CARDIOLOGY [address] [facility] [address] [place] [address] Naveen Velasquez MD [address] [facility] [address] [place], [place] [phone] documented as of this encounter Visit Diagnoses Not on filedocumented in this encounter Care Teams Hospice Rn Relationship Specialty Start Date End Date Alisa Kunz DO [address] [place] [address] PCP - General Internal Medicine 04/26/21 documented as of this encounter
--- OUTSIDE RECORDS SUMMARY | 2024-10-04 10:36 | XMS_ITS | Encounter Summary ---
Author Organization [facility] Address [address] [place] [address] Care Team Providers Care Laborer Prestressed Concrete Name Role Phone Alisa Kunz DO Primary Care Provider [phone] Kodi Bustos DO Unavailable [phone] Sujit Arriola MD Unavailable [phone] Sujit Reyes MD Unavailable [phone] Patricia Yañez LEATHER STRETCHER Unavailable Unavailab Zee Lr DO Unavailable [phone] Encounter Details Date Type Department Care Team (Late st Contact Info) Description 09/03/2024 Telephone [facility] Endocrinology [address] [place] [address] Anne-Marie Kolb, SOUND ASSISTANT [address] [facility] [address] [place] [address] Social History Tobacco Use Types [...] Recorded Patient Health Questionnaire-2 Score 0 08/04/2024 [facility] [place] of Occupat ional Health - Occupational Stress [...] drink first t anselmo in the morning (EYE-STEEL CHECKER) to steady your nerves or to get rid of a hangover? 0 08/14/2024 CAGE Questionnaire Score 0 025 Utilities Answer Date Recorded In the past 12 months has th [email or web address], gas, oil, or water [employer] threatened to shut off services in your [...] Telephone Encounter - Syl Salmeron RN - 09/03/2024 11:33 AM EDT Returned pt's call regarding BG levels. Spoke with pt yesterday and adjusted her long acting to 12 units with titration in the mornings, however, patient called back to inform me that for the last week she has been taking a supplement called ArcariosvenGVISP 1 with Cinanamon and Tumeric and other ingredients. Looked at pt's Dexcom report ( in media) and pt has been in range the last day and a half. She was wondering if she should take her long acting, she reports that she only ate a half of a banana today. I informed her that she still needs to eat balanced Protein/Carb meal, for energy and nutrition. I informed her that her meals need to be consistent to see if her dose is effective along with telling her that it takes about 3 days as well. Advised to take her long acting to 6 units and titr ate by 2 units every 3 days. Reiterated again that it takes about 3 days to see if dose is effective and enough to help regulate her BG levels. Advised that I will send this to provider and to call us back next week if needed. She verbalized understanding and no other concerns voiced. * Telephone Encounter - CARRIE VALENTINE - 09/03/2024 10:43 AM EDT Pt calling to report how her BG has been doing since her insulin adjustment. documented in this encounter Plan of Treatment Upcoming Encounters Date Type Department Care Team (Late st Contact Info) Description 10/07/2024 12:50 PM EDT Office Visit [facility] Otolaryngology [address] [place] [address] Chris Pepe MD [address] [place] [address] 10/07/2024 4:00 PM EDT Appointment Cardiac Imaging [address] [place] [address] 10/14/2024 11:00 AM EDT Office Visit [facility] Medicine Specialties [address], [address] [place] [address] Cristian Zimmer MD [address] [place] [address] 10/18/2024 7:40 AM EDT Office Visit [facility] Internal Medicine [address], [address]rd [place] [address] Alisa Kunz, DO [address] [place] [address] 10/25/2024 10:00 AM EDT Office Visit [facility] Nephrology, Bone & Mineral Metabolism [address] [facility], [address] [place] [address] Bryon Brandon MD [address] [place] [address] 10/27/2024 1:40 PM EDT Office Visit [facility] Endocrinology [address] [place] [address] Anne-Marie Kolb, SOUND ASSISTANT [address] [facility] [address] [place] [address] 02/02/2025 8:40 AM EST Office Visit [facility] Internal Medicine [address], [address] [place] [address] Alisa Kunz DO [address] [place] [address] documented as of this encounter [...] documented as of this encounter Care Teams Laborer Prestressed Concrete Relationship Specialty Start Date End Date Alisa Kunz DO [address] [place] [address] PCP - General Internal Medicine 03/13/21 Kodi Bustos DO [address] [phone] Surgeon Cardiothoracic Surgery 11/06/22 Sujit Arriola MD [address] [place] [address] Consulting Physician Pulmonary Disease 11/06/22 Sujit Reyes MD [address] [place] [address] Referring Physician 12/04/22 Patricia Yañez LPN [facility] TCM Nurse 08/25/24 Zee Lazar DO [address] [place] [id number] Resident 09/08/24 documented as of this encounter
--- OUTSIDE RECORDS SUMMARY | 2024-10-04 10:36 | XMS_ITS | Encounter Summary ---
Author Organization [facility] Address [address] [place] [address] Care Team Providers Care Cook Helper Juice Name Role Phone Alisa Kunz DO Primary Care Provider [phone] Kodi Bustos DO Unavailable [phone] Sujit Arriola MD Unavailable [phone] Sujit Reyes MD Unavailable [phone] Patricia Yañez SENIOR RESEARCH MANAGER Unavailable Unavailab Zee Lr DO Unavailable [phone] Encounter Details Date Type Department Care Team (Late st Contact Info) Description 09/02/[address] [facility] Endocrinology [address] [place] [address] Anne-Marie Kolb, POOL LIFEGUARD [address] [facility] [address] [place] [address] Social History Tobacco Use Types [...] Patient Health Questionnaire-2 Score 0 09/08/2024 [facility] of Occupat ional Health - Occupational Stress [...] first t anselmo in the morning (EYE-SUPERVISOR SCRAP PREPARATION) to steady your nerves or to get rid of a hangover? 0 08/14/2024 CAGE Questionnaire Score 0 025 Utilities Answer Date Recorded In the past 12 months has th [employer], gas, oil, or water company threatened to [...] Behavior (Lifetime) No 8:00 AM JANET Sunny Ramirez, EVITA documented as of this encounter Miscellaneous Notes * Telephone Encounter - Syl Salmeron RN - 09/02/2024 11:30 AM EDT Returned pt's call regarding low BG levels. I spoke with pt last week on 08/30/24 and decreased night time dose of Tresiba from 7 units to 6 units and kept morning dose at 7 units. I had also advised her to be intentional about timing of insulin due to daytime highs. She reports that she feels like crap and that she has been having some lows. Looked at Dexcom Report (in media) and saw some lows from [place] on to morning. Advised not to take any insulin tonight and advised to take 12 units in the morning. Advised to titrated by 2 units every 3 days until fasting BG <150 for three mornings in a row, and whatever dose gets her there, that's the dose she will stay on. Also informed her that she may wake up a little higher tomorrow morning due to not taking any tonight. I also congratulated her on working on the timing of taking her insulin due to seeing improvement with glycemic control on Dexcom report. Advised that I will send this over to provider and to call us back if needed. She verbalized understanding and no other concerns voiced. * Telephone Encounter - CARRIE VALENTINE - 09/02/2024 9:46 AM EDT Pt is having BG lows all through the night, please advise. documented in this encounter Plan of Treatment Upcoming Encounters Date Type Department Care Team (Late st Contact Info) Description 10/07/2024 12:50 PM EDT [facility] [address] [place] [address] Chris Pepe MD [address] [place] [address] 10/07/2024 4:00 PM EDT Appointment Cardiac Imaging [address] [place] [address] 10/14/2024 11:00 AM EDT [facility] Medicine Specialties [address] [place] [address] Cristian Zimmer MD [address] [place] [address] 10/18/2024 7:40 AM EDT Office Visit [facility] Internal Medicine [address], [address]rd [place] [phone] Alisa Kunz, DO [address] [place] [address] 10/25/2024 10:00 AM EDT Office Visit [facility] Nephrology, Bone & Mineral Metabolism [address] [facility], [address] [place] [address] Bryon Brandon MD [address] [place] [address] 10/27/2024 1:40 PM EDT Office Visit [facility] Endocrinology [address] [place] [phone] Anne-Marie Kolb L, POOL LIFEGUARD [address] [facility] [address] [place] [address] 02/02/2025 8:40 AM EST Office Visit [facility] Internal Medicine [address]rd [place] [address] Alisa Kunz, DO [address] [place] [address] documented as of this encounter [...] documented as of this encounter Care Teams Cook Helper Juice Relationship Specialty Start Date End Date Alisa Kunz DO [address] [place] [address] PCP - General Internal Medicine 03/13/21 Kodi Bustos DO [address] [place] [address] Surgeon Cardiothoracic Surgery 11/06/22 Sujit Arriola MD [address] [place] [address] Consulting Physician Pulmonary Disease 11/06/22 Sujit Reyes MD [address] [place] [address] Referring Physician 12/04/22 Patricia Yañez LPN [facility] TCM Nurse 08/25/24 Zee Lazar DO [address] [place] [address] [id number] Resident 09/08/24 documented as of this encounter
--- OUTSIDE RECORDS SUMMARY | 2024-10-04 10:36 | XMS_ITS | Encounter Summary ---
Author Organization [employer] ([place] Address [address] [place] [address] Care Team Providers Care Delivery Room Clerk Name Role Phone Unavailable Primary Care Provider Unavailabl e Encounter Details Date Type Department Care Team (Late st Contact Info) Description 08/21/2021 Transcribed Document [facility] [place] [facility] [place] [address] ProviderNessa MD [address] [place] [address] Social History Tobacco Use Types Packs/Day Years Used Date Smoking Tobacco: Never Assessed Comments Unknown Sex and Gender Information Value Date Recorded Sex Assigned at Female 09/04/2021 10:41 AM CDT Legal Sex Female 10:41 AM CDT Gender Identity Female 09/04/2021 10:41 AM CDT Sexual Orientation Not on file documented as of this encounter Miscellaneous Notes * Cerner Conversion Note - Nessa ProviderMD - 08/21/2021 4:49 PM CDT Patient: [...] a Rank I in Education from the [facility]. 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 She is with two daughters. Ms. Torres does not currently participate in outpatient counseling. She previously attended outpatient counseling at [facility]. She is prescribed psychopharmacological therapy by Evelio Long M.D. at [facility]. She denied current suicidal ideation, plan or intent. She denied prior suicidal attempts. She endorsed a history of passive suicidal ideation during her thirties and forties, although she denied having a specific plan or intent at that time. She reported two prior inpatient psychiatric admissions during her thirties or forties at the [facility] in [place] [i.e. she believes it was the [facility]], for depression with suicidal ideation. Ms. Torres [...] prescribed by Evelio Long M.D., psychiatrist at [facility]. 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 I discussed this with her today. She [...] CPAP therapy. This note was dictated using [employer] voice recognition software. Cc: Alias Kunz DO. documented in this encounter Plan of Treatment Not on file documented as of this encounter Visit Diagnoses Not on filedocumented in this encounter
--- OUTSIDE RECORDS SUMMARY | 2024-10-04 10:36 | XMS_ITS | Encounter Summary ---
Author Organization [facility] Address [address] [place] [address] Care Team Providers Care Press Set Up Name Role Phone Alisa Kunz DO Primary Care Provider [phone] Kodi Bustos DO Unavailable [phone] Sujit Arriola MD Unavailable [phone] Sujit Reyes MD Unavailable [phone] Patricia Yañez LPN Unavailable Unavailab Zee Lr DO Unavailable [phone] Encounter Details Date Type Department Care Team (Latest Contact Info) Description 09/13/2024 Travel Social History Tobacco Use Types Packs/Day [...] Recorded Patient Health Questionnaire-2 Score 0 09/08/2024 [facility] of Occupat ional Health - [...] any time in the past 12 m [facility], were you homeless or living in [...] any time in the past 12 m [facility], were you homeless or living in [...] drink first t anselmo in the morning (EYE-ROOFING MACHINE TENDER) to steady your nerves or to get rid of a hangover? 0 08/14/2024 CAGE Questionnaire Score 0 025 Utilities Answer Date Recorded In the past 12 months has th e [employer], gas, oil, or water [employer] threatened to shut off services in your [...] Date of Assessment Author No Risk Indicated 09/13/2024 8:00 PM EDT Candace Horne RN * Question Answer Date of Assessment Author 1. Wish to be (Past 1 Month) No 025 8:00 PM EDT Candace Horne RN 2. Non-Specific Active Suici dillon Thoughts (Past 1 Month) No 09/13/2024 8:00 PM EDT Courtney Horne RN 6. Suicidal Behavior (Lifetime) No 8:00 PM EDT Candace Horne RN documented as of this encounter Plan of Treatment Upcoming Encounters Date Type Department Care Team (Late st Contact Info) Description 10/07/2024 12:50 PM EDT [facility] Visit [facility] [address] [place] [address] Chris Pepe MD [address] [place] [address] 10/07/2024 4:00 PM EDT Appointment Cardiac Imaging [address] [place] [address] 10/14/2024 11:00 AM EDT Office Visit [facility] Medicine Specialties [address], [address] [place] [address] Cristian Zimmer MD [address] [place] [address] 10/18/2024 7:40 AM EDT Office Visit [facility] Internal Medicine [address], 3rd [place] [address] Alisa Kunz, DO [address] [facility] [address] [place] [address] 10/25/2024 10:00 AM EDT Office Visit [facility] Nephrology, Bone & Mineral Metabolism [address] [facility], [address] [place] [address] Bryon Brandon MD [address] [place] [address] 10/27/2024 1:40 PM EDT Office Visit [facility] Endocrinology [address] [place] [address] Anne-Marie Kolb L, HEEL COMPRESSOR [address] [facility] [address] [place] [address] 02/02/2025 8:40 AM EST Office Visit [facility] Internal Medicine [address] [place] [address] Alisa Kunz, DO [address] [place] [address] documented as of this encounter [...] documented as of this encounter Care Teams Press Set Up Relationship Specialty Start Date End Date Alisa Kunz DO [address] [place] [address] PCP - General Internal Medicine 03/13/21 Kodi Bustos DO [address] [place] [phone] Surgeon Cardiothoracic Surgery 11/06/22 Sujit Arriola MD [address] [place] [address] Consulting Physician Pulmonary Disease 11/06/22 Sujit Reyes MD [address] [place] [phone] Referring Physician 12/04/22 Patricia Yañez LPN [facility] TCM Nurse 08/25/24 Zee Lazar DO [address] [place] [address] [phone] Resident 09/08/24 documented as of this encounter
--- OUTSIDE RECORDS SUMMARY | 2024-10-04 10:36 | XMS_ITS | Encounter Summary ---
Author Organization [facility] Address [address] [place] [address] Care Team Providers Care Artistic Associate Name Role Phone Alisa Kunz DO Primary Care Provider [phone] Kodi Bustos DO Unavailable [phone] Sujit Arriola MD Unavailable [phone] Sujit Reyes MD Unavailable [phone] Patricia Yañez LPN Unavailable Unavailab Zee Lr DO Unavailable [phone] Encounter Details Date Type Department Care Team (Latest Contact Info) Description 09/11/2024 Travel Social History Tobacco Use Types Packs/Day [...] any time in the past 12 m [facility], were you homeless or living [...] any time in the past 12 m [facility], were you homeless or living in a fdc (including now)? No 08/25/2024 CAGE ASSESSMENT Answer [...] drink first t anselmo in the morning (EYE-GARAGE LABORER) to steady your nerves or to get [...] Date of Assessment Author No Risk Indicated 09/11/2024 8:00 PM EDT Sofia Gamino RN * Question Answer Date of Assessment Author 1. Wish to be (Past 1 Month) No 025 8:00 PM EDT Sofia Coronado, RN 2. Non-Specific Active Suici dillon Thoughts (Past 1 Month) No 09/11/2024 8:00 PM EDT Aimee Coronado, RN 6. Suicidal Behavior (Lifetime) No 8:00 PM EDT Sofia Coronado, RN documented as of this encounter Plan of Treatment Upcoming Encounters Date Type Department Care Team (Late st Contact Info) Description 10/07/2024 12:50 PM EDT [facility] Visit [facility] [address] [place] [address] Chris Pepe MD [address] [place] [address] 10/07/2024 4:00 PM EDT Appointment Cardiac Imaging [address] [place] [address] 10/14/2024 11:00 AM EDT [facility] Visit [facility] Medicine Specialties [address] [place] [address] Cristian Zimmer MD [address] [place] [address] 10/18/2024 7:40 AM EDT Office Visit [facility] Internal Medicine [address] [place] [address] Alisa Kunz, DO [address] [place] [address] 10/25/2024 10:00 AM EDT Office Visit [facility] Nephrology, Bone & Mineral Metabolism [address] [facility], [address] [place] [address] Bryon Brandon MD [address] [place] [address] 10/27/2024 1:40 PM EDT Office Visit [facility] Endocrinology [address] [place] [address] Anne-Marie Kolb L, BACKUP ADMINISTRATIVE COORDINATOR [address] [facility] [address] [place] [address] 02/02/2025 8:40 AM EST Office Visit [facility] Internal Medicine [address] [place] [address] Alisa Kunz, DO [address] [place] [address] documented as of this encounter [...] documented as of this encounter Care Teams Artistic Associate Relationship Specialty Start Date End Date Alisa Kunz DO [address] [place] [address] PCP - General Internal Medicine 03/13/21 Kodi Bustos, [address] [place] [phone] Surgeon Cardiothoracic Surgery 11/06/22 Sujit Arriola MD [address] [place] [address] Consulting Physician Pulmonary Disease 11/06/22 Sujit Reyes MD [address] [place] [phone] Referring Physician 12/04/22 Patricia Yañez LPN [facility] TCM Nurse 08/25/24 Zee Lazar DO [address] [place] [address] [id number] Resident 09/08/24 documented as of this encounter
--- OUTSIDE RECORDS SUMMARY | 2024-10-04 10:36 | XMS_ITS | Encounter Summary ---
Author Organization [facility] Address [address] [place] [address] Care Team Providers Care Maternal Child Nurse Name Role Phone Alisa Kunz Primary Care Provider [phone] Encounter Details Date Type Department Care Team (Latest Contact Info) Description 08/11/2024 Anticoagulation Visit [facility] ANT[facility] [address] [facility] [address] [place] [address] Yancy Viveros, Inspector Rubber Stamp Die Left ventricular apical thrombus (Primary Dx) Social [...] as of this encounter Progress Notes * Yancy Viveros, Inspector Rubber Stamp Die - 08/11/2024 3:15 PM EDT [facility] Anticoagulation Clinic Progress Note Patient Demographics Method of INR reporting: Udex Home Monitor SN [id number] Estimated OOP Cost: Indication: Left Ventricular Atypical Thrombus (~2012) Referring Provider Nanette Pryor APRN Reason patient is not on a DOAC: Goal INR: 2-3 Warfarin Start Date ~02/12/24 Reason patient is not on home monitor: [id number]: Planned Duration of Therapy Indefinite Relevant medical [...] Notes Fluconazole Rec'd 04/30 Spoke 05/03 Rec'd 3/ Admitted [facility] Admitted [facility] Date 05/25 05/31 06/07 06/15 4/06/22 6 Total Weekly Dose 25 mg 35 mg 32.5 mg 32.5 mg 32.5 mg 32.5 mg 30 mg 32.5 mg INR 1.9 1.6 4.1/3.6 8</8< 2.3 2.6 2.7 3.8 3.2 Notes Admitted Rec'd 05/27 HM 1-BILL TODAY HM 2- no leonid; In clinic HM 3 - no bill HM 4 - no bill HM 1- BILL TODAY HM 2 - no bill Rec'd 08/11 Patient Contact Information Verbal release: Signed 03/05/24 Preferred contact number: [phone] Alternative contact number(s): [phone] (Doron) [phone] (Ruthie) [phone] (Madyson) Patient Appropriate for WarfNoCall ? No Preferred contact name: Michelle Felipe Alternative contact name(s): Doron Felipe () Ruthie Arlette (Daughter) Madyson Cecilio (Daughter) Preferred contact relation: Self Lab contact information (if applicable): Subjective Findings Drug Interactions Dietary Findings Historical: duloxetine, levothyroxine, ezetimibe, furosemide Historical GLV intake (date updated): broccoli/cabbage every now and then, not much other GLV New (including OTC): spironolactone GLV changes this encounter: One salad Alcohol and Tobacco Historical: 2 beers or 1 cocktail per evening, no tobacco New: Patient Findings Positives: Change in health, Change in diet/appetite Negatives: Signs/symptoms of thrombosis, Signs/symptoms of bleeding, Laboratory test error suspected, Change in alcohol use, Change in activity, Upcoming invasive procedure, Emergency department visit, Upcoming dental procedure, Missed doses, Extra doses, Change in medications, Hospital admission, Bruising, Other complaints Comments: Patient reports her chest has felt full of fluid and she has been coughing up a lot of phlegm. She is not eating much because she already feels full from the fluid draining to her stomach. Advised patient to follow up with PCP or manager of human resources. All other findings negative per patient. Assessment and Plan: INR was supratherapeutic yesterday at 3.2 (2.0-3.0). Instructed patient to continue current regimenof warfarin 5 mg daily except 2.5 mg Tues until recheck. Will have extra serving of GLV. Recheck INR in 1 week, 6.10.25. Patient prefers testing Tuesdays. Verbal and written information provided. Michelle Felipe expresses understanding by teach back and has no further questions at this time. Home monitor information below: Test strips on hand: 8 08/04/24 Barcode number: [id number] Test strip LOT: [id number] EXP: 03/2026 Serial number: [id number](02) [id number] Supplies billing code used: last 08/04/24]- Next must be on or after 09/01/24 Transfer Tube Lot number: [id number] Safety Lancets: Lot: Exp: Billing: bill must be completed every 4th encounter that falls outside of 28 days from last visit PLEASE REFER TO ANTICOAGULATION TRAINING POWERPOINT FOR BILLING. Needs to use in clinic remote appointment for encounter. Yancy Viveros CPhT, RP 16:20 EDT 08/11/2024 Reema Johnson PharmD, have reviewed the note in full and agree with the assessment and plan. 08/12/24 08:07 EDT documented in this encounter Plan of Treatment Upcoming Encounters Date Type Department Care Team (Late st Contact Info) Description 12/02/2024 3:30 PM EDT Office Visit [facility] CARDIOLOGY [address] [facility] [place] [address] Sujit Reyes MD [address] [address] 01/19/2025 1:45 PM EST Office Visit [facility] CARDIOLOGY [address] [facility] [address] [place] [address] Naveen Velasquez MD [address] [facility] [address] [place] [address] documented as of this encounter Procedures Procedure Name Priority Date/Time Associated Diagnosis Comments PROTIME-INR Routine 08/10/2024 documented in this encounter Results * Protime-INR (08/10/2024) INR 3.20 Blood 08/10/2024 Historical Provider LAB BLOOD ORDERABLES Lee Ann l Result documented in this encounter Visit Diagnoses Diagnosis Left ventricular apical thrombus- Primary documented in this encounter Care Teams Maternal Child Nurse Relationship Specialty Start Date End Date Alisa Kunz DO [address] [place] [address] PCP - General Internal Medicine 04/26/21 documented as of this encounter
--- OUTSIDE RECORDS SUMMARY | 2024-10-04 10:36 | XMS_ITS | Encounter Summary ---
Author Organization [facility] Address [address] [place] [address] Care Team Providers Care Grain Combiner Name Role Phone Alisa Kunz DO Primary Care Provider [phone] Kodi Bustos DO Unavailable [phone] Sujit Arriola MD Unavailable [phone] Sujit eRyes MD Unavailable [phone] Patricia Yañez LPN Unavailable Unavailab Zee Lr DO Unavailable [phone] Encounter Details Date Type Department Care Team (Late st Contact Info) Description 09/02/2024 Telephone [facility] Internal Medicine [address] [place] [address] Alisa Kunz DO [address] [place] [address] Social History Tobacco Use Types [...] Recorded Patient Health Questionnaire-2 Score 0 09/08/2024 [facility] of Occupat ional Health - Occupational Stress [...] any time in the past 12 m [facility], were you homeless or [...] any time in the past 12 m [facility], were you homeless or [...] drink first t anselmo in the morning (EYE-BACTERIOLOGY TEACHER) to steady your nerves or to get rid of a hangover? 0 08/14/2024 CAGE Questionnaire Score 0 025 Utilities Answer Date Recorded In the past 12 months has th [employer], gas, oil, or water company threatened to [...] Telephone Encounter - Alisa Kunz DO - 09/02/2024 5:54 PM EDT Thank you! * Telephone Encounter - Sonam Pretty - 09/02/2024 12:41 PM EDT Clinical Concern/Question Reason for Call: Cece from [employer] calling to let PCP they are starting the patient on Friday and wanted her to be aware. Stated if you have any questions to call back at [phone]. Thank you! Best contact number: [phone] Optimal time of day to reach caller: [...] Description 10/07/2024 12:50 PM EDT Office Visit [facility] Otolaryngology [address] [place] [address] Chris Pepe MD [address] [place] [address] 10/07/2024 4:00 PM EDT Appointment Cardiac Imaging [address] [place] [address] 10/14/2024 11:00 AM EDT Office Visit [facility] Medicine Specialties [address] [place] [address] Cristian Zimmer MD [address] [place] [address] 10/18/2024 7:40 AM EDT Office Visit [facility] Internal Medicine [address] [place] [address] Alisa Kunz DO [address] [facility] [address] [place] [address] 10/25/2024 10:00 AM EDT Office Visit [facility] Nephrology, Bone & Mineral Metabolism [address] [facility], [address] [place] [address] Bryon Brandon MD [address] [place] [address] 10/27/2024 1:40 PM EDT [facility] End[facility] [address] [place] [address] Anne-Marie Kolb, CENTRAL STERILE TECHNICIAN [address] [facility] [address] [place] [address] 02/02/2025 8:40 AM EST Office Visit [facility] Internal Medicine [address] [place] [address] Alisa Kunz DO [address] [address] documented as of this encounter [...] documented as of this encounter Care Teams Grain Combiner Relationship Specialty Start Date End Date Alisa Kunz DO [address] [place] [address] PCP - General Internal Medicine 03/13/21 Kodi Bustos DO [address] [phone] Surgeon Cardiothoracic Surgery 11/06/22 Sujit Arriola MD [address] [place] [address] Consulting Physician Pulmonary Disease 11/06/22 Sujit Reyes MD [address] [place] [address] Referring Physician 12/04/22 Patricia Yañez LPN [facility] TCM Nurse 08/25/24 Zee Lazar DO [address] [place] [address] [id number] Resident 09/08/24 documented as of this encounter
--- OUTSIDE RECORDS SUMMARY | 2024-10-04 10:36 | XMS_ITS | Encounter Summary ---
Author Organization [facility] Address [address] [place] [address] Care Team Providers Care Drama Critic Name Role Phone Alisa Kunz DO Primary Care Provider [phone] Kodi Bustos DO Unavailable [phone] Sujit Arriola MD Unavailable [phone] Sujit Reyes MD Unavailable [phone] Patricia Yañez LPN Unavailable Unavailab Zee Lr DO Unavailable [phone] Encounter Details Date Type Department Care Team (Latest Contact Info) Description 09/08/2024 Travel Social History Tobacco Use Types Packs/Day [...] Recorded Patient Health Questionnaire-2 Score 0 09/08/2024 [facility] of Occupat ional Health [...] living in a residential (including now)? No 08/25/2024 CAGE ASSESSMENT Answer [...] drink first t anselmo in the morning (EYE-WINDOW TREATMENT INSTALLER) to steady your nerves or to get rid of a hangover? 0 08/14/2024 CAGE Questionnaire Score 0 025 Utilities Answer Date Recorded In the past 12 months has th e [employer], gas, oil, or water [employer] threatened to shut off services in your [...] Author No Risk Indicated 09/08/2024 11:19 AM EDT Shashank Esquivel * If you checked off any problems [...] (Past 1 Month) No 025 11:19 AM EDT Shashank Burrows 2. Non-Specific Active Suici dillon Thoughts (Past 1 Month) No 09/08/2024 11:19 AM EDT Adalid Burrows 6. Suicidal Behavior (Lifetime) No 11:19 AM EDT Shashank Burrows documented as of this encounter Plan of Treatment Upcoming Encounters Date Type Department Care Team (Late st Contact Info) Description 10/07/2024 12:50 PM EDT Office Visit [facility] Ot[facility] [address] [place] [address] Chris Pepe MD [address] [place] [address] 10/07/2024 4:00 PM EDT Appointment Cardiac Imaging [address] [place] [address] 10/14/2024 11:00 AM EDT Office Visit [facility] Medicine Specialties [address] [place] [address] Cristian Zimmer MD [address] [facility] [address] [place] [address] 10/18/2024 7:40 AM EDT Office Visit [facility] Internal Medicine [address], 3rd [place] [address] Alisa Kunz, DO [address] [place] [address] 10/25/2024 10:00 AM EDT Office Visit [facility] Nephrology, Bone & Mineral Metabolism [address] [facility] [address], [address] [place] [address] Bryon Brandon MD [address] [place] [address] 10/27/2024 1:40 PM EDT Office Visit [facility] Endocrinology [address] [place] [address] Anne-Marie Kolb L, STREET CLEANER [address] [facility] [address] [place] [address] 02/02/2025 8:40 AM EST Office Visit [facility] Internal Medicine [address], 3rd [place] [address] Alisa Kunz, DO [address] [facility] [address] [place] [address] documented as of this encounter [...] documented as of this encounter Care Teams Drama Critic Relationship Specialty Start Date End Date Alisa Kunz DO [address] [place] [address] PCP - General Internal Medicine 03/13/21 Kodi Bustos DO [address] [place] [address] Surgeon Cardiothoracic Surgery 11/06/22 Sujit Arriola MD [address] [place] [address] Consulting Physician Pulmonary Disease 11/06/22 Sujit Reyes MD [address] [place] [address] Referring Physician 12/04/22 Patricia Yañez LPN [facility] TCM Nurse 08/25/24 Zee Lazar DO [address] [place], [place] [id number] Resident 09/08/24 documented as of this encounter
--- OUTSIDE RECORDS SUMMARY | 2024-10-04 10:36 | XMS_ITS | Encounter Summary ---
Author Organization [facility] Address [address] [place] [address] Care Team Providers Care Wool Hat Flanger Name Role Phone Alisa Kunz Primary Care Provider [phone] Encounter Details Date Type Department Care Team (Latest Contact Info) Description 08/26/2024 Anticoagulation Visit [facility] ANTICO[facility]ULATION CLINIC [address] [facility] [address] [place] [address] Yancy Viveros, Fixer Boarding Room Left ventricular apical thrombus (Primary Dx) Social [...] this encounter Progress Notes * Yancy Viveros, Fixer Boarding Room - 08/26/2024 2:06 PM EDT [facility] Anticoagulation Clinic Progress Note Patient Demographics Method of INR reporting: Vet Brother [employer] Home Monitor SN [id number] Estimated OOP Cost: Indication: Left Ventricular Atypical Thrombus (~2012) Referring Provider Nanette Pryor APRN Reason patient is not on a DOAC: Goal INR: 2-3 Warfarin Start Date ~02/12/24 Reason patient is not on home monitor: [id number]: Planned Duration of Therapy Indefinite Relevant medical [...] 32.5 mg 30 mg 32.5 mg Admission INR 1.9 1.6 4.1/3.6 8</8< 2.3 2.6 2.7 3.8 3.2 Notes Admitted Rec'd 05/27 HM 1-BILL TODAY HM 2- no leonid; In clinic HM 3 - no bill HM 4 - no bill HM 1- BILL TODAY HM 2 - no bill Rec'd 08/11 Patient Contact Information Verbal release: Signed 03/05/24 Preferred contact number: [phone] Alternative contact number(s): [phone] (Doron) [phone] (Ruthie) [phone] (Madyson) Patient Appropriate for WarfNoCall ? No [...] cocktail per evening, no tobacco New: Patient Findings: Positives: Change in health, Emergency department visit, [...] follow up. Patient was discharged on 08/24. Assessment and Plan: Patient states INR was 0.8. Patient resumed warfarin the following day after heart cath, so INR should be higher. Patient scheduled to come to clinic this afternoon. Home monitor information below: Test strips on hand: 8 Barcode number: [id number] Test strip LOT: [id number] EXP: 03/2026 Serial number: [id number] [id number] Supplies billing code used: last 08/04/24] - Next must be on or after 09/01/24 Transfer Tube Lot number: [id number] Safety Lancets: Lot: Exp: Billing: bill must be completed every 4th encounter that falls outside of 28 days from last visit PLEASE REFER TO ANTICOAGULATION TRAINING POWERPOINT FOR BILLING. Needs to use in clinic remote appointment for encounter. Yancy Viveros CPhT, RPhT 10:24 EDT 08/27/2024 documented in this encounter Plan of Treatment Upcoming Encounters Date Type Department Care Team (Late st Contact Info) Description 12/02/2024 3:30 PM EDT Office Visit [facility] CARDIOLOGY [address] [place] [address] [address] Sujit Reyes MD [address] [facility] [address] [place], [place] [id number] 01/19/2025 1:45 PM EST Office Visit [facility] [address] [facility] [address] [place] [address] Naveen Velasquez MD [address] [facility] [address] [place] [address] documented as of this encounter Visit Diagnoses Diagnosis Left ventricular apical thrombus- Primary documented in this encounter Care Teams Wool Hat Flanger Relationship Specialty Start Date End Date Alisa Kunz DO [address] [place] [address] PCP - General Internal Medicine 04/26/21 documented as of this encounter
--- OUTSIDE RECORDS SUMMARY | 2024-10-04 10:36 | XMS_ITS | Encounter Summary ---
Author Organization [facility] Address [address] [place] [address] Care Team Providers Care Liturgical Music Director Name Role Phone Jackson Malave MD Primary Care Provider + [phone] Alisa Kunz DO Primary Care Provider [phone] Anu Sen RN Unavailable [phone] Laura Albright PICKER / PACKER Unavailable Unavailable Balwinder Vale Unavailable Unavailable Kodi Bustos DO Unavailable [phone] Sujit Arriola MD Unavailable [phone] HatLaura navas LPN Unavailable Unavailable Sujit Reyes MD Unavailable [phone] Zully Caldwell PICKER / PACKER Unavailable Unavailable HatLaura navas LPN Unavailable Unavailable Laura Albright LPN Unavailable Unavailable Tanya Powell Unavailable [phone] Sarah Reyes PICKER / PACKER Unavailable Unavailable Ekaterina Gómez Unavailable Unavailable Zully Caldwell PICKER / PACKER Unavailable Unavailable Ekaterina Gómez Unavailable Unavailable Patricia Yañez PICKER / PACKER Unavailable Unavailab Zee Lr DO Unavailable [phone] Reason for Visit * Reason Comments Med Refill Encounter Details Date Type Department Care Team (Late st Contact Info) Description 02/12/2021 Refill [facility] Internal Medicine [address] [place] [address] Jackson Malave MD [address] [place] [address] Social History Tobacco Use Types Packs/Day Years [...] Office Visit [facility] [address]rd [place] [address] Chris Pepe MD [address] [facility] [address] [place] [address] 10/07/2024 4:00 PM EDT Appointment Cardiac Imaging [address] [place] [address] 10/14/2024 11:00 AM EDT Office Visit [facility] Medicine Specialties [address] 2nd [place] [address] Cristian Zimmer MD [address] [place] [address] 10/18/2024 7:40 AM EDT Office Visit [facility] Internal Medicine [address] [place] [address] Alisa Kunz, DO [address] [place] [address] 10/25/2024 10:00 AM EDT Office Visit [facility] Nephrology, Bone & Mineral Metabolism [address] [facility], [address] [place] [address] Bryon Bradnon MD [address] [place] [address] 10/27/2024 1:40 PM EDT Office Visit [facility] Endocrinology [address] [place] [address] Anne-Marie Kolb L, RADIOISOTOPE TECHNICIAN [address] [place] [address] 02/02/2025 8:40 AM EST Office Visit [facility] Internal Medicine [address] [place] [address] Alisa Kunz, DO [address] [place] [address] documented as of this encounter [...] documented as of this encounter Care Teams Liturgical Music Director Relationship Specialty Start Date End Date Jackson Malave MD [address] [place], [place] [id number] PCP - General 07/21/20 03/12/21 Alisa Kunz DO [address] [place] [address] PCP - General Internal Medicine 03/13/21 Anu Sen, RN VALUE-BASED TRANSFORMATION PROGRAM [place] Registered Nurse Internal Medicine 08/22/21 09/24/21 Laura Albright LPN [employer] [place] [address] TCM Nurse 08/30/22 09/27/22 InocenteBalwinder dominique [facility] [address] [place] [address] Community Health Worker Medical Device Engineer 08/30/22 09/06/22 Kodi Bustos DO [address] [address] Surgeon Cardiothoracic Surgery 11/06/22 Sujit Arriola MD [address] [place] [address] Consulting Physician Pulmonary Disease 11/06/22 Laura Albright LPN [employer] [place] [address] TCM Nurse 12/02/22 01/01/23 Sujit Reyes MD [address] [place] [address] Referring Physician 12/04/22 Zully Caldwell LPN [employer] [place] [address] TCM Nurse 02/03/23 03/05/23 Laura Albright LPN [employer] [address] TCM Nurse 08/05/23 09/04/23 Laura Albright LPN [employer] [address] TCM Nurse 02/17/24 03/18/24 Tanya Powell [address] [place] [address] Registered Nurse 04/02/24 07/01/24 Sarah Reyes LPN TCM Nurse 05/27/24 06/26/24 Ekaterina Gómez Lamp Replacer Medical Device Engineer 07/14/24 07/14/24 Zully Caldwell LPN [employer] [place] [address] TCM Nurse 07/16/24 08/15/24 Ekaterina Gómez Lamp Replacer Medical Device Engineer 08/16/24 08/16/24 Patricia Yañez, PICKER / PACKER [facility] TCM Nurse 08/25/24 Zee Lazar DO [address] [place] [address] Resident 09/08/24 documented as of this encounter
--- OUTSIDE RECORDS SUMMARY | 2024-10-04 10:36 | XMS_ITS | Encounter Summary ---
Author Organization [facility] Address [address] [place] [address] Care Team Providers Care Special Education Preschool Teacher Name Role Phone Alisa Kunz DO Primary Care Provider [phone] Kodi Bustos DO Unavailable [phone] Sujit Arriola MD Unavailable [phone] Sujit Reyes MD Unavailable [phone] Patricia Yañez LPN Unavailable Unavailab le Reason for Referral * Home Health (Routine) - Closed Specialty Diagnoses / Procedures Referred By Luis Armando mckeon Referred To Contact Home Health Services Diagnoses At high risk for falls Type 2 diabetes mellitus without complication, with long-term current use of insulin Compression fracture of T12 vertebra with routine healing, subsequent encounter Osteoarthritis, unspecified osteoarthritis type, unspecified site Pleural effusion Alisa Kunz DO [address] [place] [address] Phone: tel: fax: Referral ID Status Reason Start Date Expiration Date V isits Requested Visits Authorized [id number] Closed Specialty Services Required 08/31/2024 03/02/[phone] Encounter Details Date Type Department Care Team (Late st Contact Info) Description 08/31/2024 Orders Only [facility] Internal Medicine [address]rd [place] [address] Alisa Kunz, [address] [place] [address] At high risk for falls (Primary Dx); Type 2 diabetes mellitus without complication, with long-term current use of insulin; Compression fracture of T12 vertebra with routine healing, subsequent encounter; Osteoarthritis, unspecified osteoarthritis type, unspecified site; Pleural effusion Social History Tobacco Use Types [...] often do you attend [facility] or muslim services? 1 to 4 times [...] Recorded Patient Health Questionnaire-2 Score 0 08/04/2024 [facility] of Occupat ional Health - Occupational Stress [...] time in the past 12 m [facility], were you homeless or living in [...] time in the past 12 m [facility], were you homeless or living in [...] drink first t anselmo in the morning (EYE-ELECTRIC MOTOR ASSEMBLER AND TESTER) to steady your nerves or to get [...] encounter Miscellaneous Notes * Progress Notes - Shannen Stephens - 08/31/2024 12:54 PM EDT Home health documented in this encounter Plan of Treatment Upcoming Encounters Date Type Department Care Team (Late st Contact Info) Description 10/07/2024 12:50 PM EDT Office Visit [facility] Otolaryngology [address] [place] [address] Chris Pepe MD [address] [place] [address] 10/07/2024 4:00 PM EDT Appointment Cardiac Imaging [address] [place] [address] 10/14/2024 11:00 AM EDT Office Visit [facility] Medicine Specialties [address] [place] [address] Cristian Zimmer MD [address] [place] [address] 10/18/2024 7:40 AM EDT Office Visit [facility] Internal Medicine [address] [place] [address] Alisa Kunz DO [address] [place] [address] 10/25/2024 10:00 AM EDT Office Visit [facility] Nephrology, Bone & Mineral Metabolism [address] [facility], [address] [place] [address] Bryon Brandon MD [address] [place] [address] 10/27/2024 1:40 PM EDT Office Visit [facility] Endocrinology [address] [place] [address] Anne-Marie Kolb, PATHOLOGICAL TECHNICIAN [address] [place] [address] 02/02/2025 8:40 AM EST Office Visit [facility] Internal Medicine [address] [place] [address] Alisa Kunz DO [address] [place] [address] Scheduled Referrals Name Type Priority Associated Diagnoses Orde r Schedule Ambulatory referral to Home Health Outpatient Referral Routine At high risk for falls Type 2 diabetes mellitus without complication, with long-term current use of insulin Compression fracture of T12 vertebra with routine healing, subsequent encounter Osteoarthritis, unspecified osteoarthritis type, unspecified site Pleural effusion 1 Occurrences starting 08/31/2024 until 03/04/2026 documented as of this encounter Visit Diagnoses Diagnosis At high risk for falls- Primary Type 2 diabetes mellitus without complication, with long-term current use of insulin Compression fracture of T12 vertebra with routine healing, subsequent encounter Osteoarthritis, unspecified osteoarthritis type, unspecified site Pleural effusion Unspecified pleural effusion documented in this encounter Additional Health Concerns Assessment Noted Time PHQ-9 Depression Total Score: 8 07/22/19 25 9:23 AM EDT A fall risk assessment has been complete d for the patient 08/04/2024 10:41 AM EDT A Body Mass Index follow-up plan has been documented for the patient 08/24/2024 2:26 PM EDT documented as of this encounter Care Teams Special Education Preschool Teacher Relationship Specialty Start Date End Date Alisa Kunz DO [address] [place] [address] PCP - General Internal Medicine 03/13/21 Kodi Bustos DO [address] [address] Surgeon Cardiothoracic Surgery 11/06/22 Sujit Arriola MD [address] [place] [address] Consulting Physician Pulmonary Disease 11/06/22 Sujit Reyes MD [address] [place] [address] Referring Physician 12/04/22 Patricia Yañez LPN [facility] TCM Nurse 08/25/24 documented as of this encounter
--- OUTSIDE RECORDS SUMMARY | 2024-10-04 10:36 | XMS_ITS | Encounter Summary ---
Author Organization [facility] Address [address] [place] [address] Care Team Providers Care Merchandise Buyer Name Role Phone Alisa Kunz Primary Care Provider [phone] Reason for Visit * Reason Onset Date Comments DR VELASQUEZ -CARDIOVERSION 07/30/2024 Encounter Details Date Type Department Care Team (Late st Contact Info) Description 07/30/2024 Telephone [facility] CARDIOLOGY [address] [facility] [address] [place] [address] Naveen Velasquez MD [address] [facility] [address] [facility] [address] [place] [id number] [address] VELASQUEZ -CARDIOVERSION Social History Tobacco Use Types Packs/Day Years [...] as of this encounter Progress Notes * Halima Moy RN - 08/30/2024 11:28 AM EDTAddended by: HALIMA MOY on: 08/30/2024 11:28 AM Modules accepted: Orders documented in this encounter Miscellaneous Notes * Telephone Encounter - Halima Moy RN - 08/30/2024 11:21 AM EDT Patient called back today to let you know that she had her heart cath and the fluid drained off of her lungs at . She states that she does have more energy. She denies shortness of breath, chest pain or edema. Sheis not sure if she is still out of rhythm. Today her BP is 114/57 and her HR is 67 bpm. She is going to have an EKG gone at [facility] today for rhythm determination. EKG order faxed to [phone]. Her records from are on your desk to review. * Telephone Encounter - Ekaterina Rand PA - 08/10/2024 1:12 PM EDT Ok that sounds reasonable. * Telephone Encounter - Halima Moy RN - 08/09/2024 11:48 AM EDT Patient called back today stating that her lungs feel like they are filling up with fluid again, she is short of breath and fatigued. She states that she is feeling much worse. Since Dr. Gonzales at treats her heart failure, she is going to call him and go to the ER at to be evaluated. She will keep us updated. * Telephone Encounter - Halima Moy RN - 08/05/2024 11:42 AM EDT I called to f/u with the patient. She said that she saw Dr. Gonzales at yesterday and he would like her to have a left heart cath done. The note is in EPIC for you to review. She just wanted to make you aware in case that would affect your treatment plan. * Telephone Encounter - Halima Moy RN - 08/05/2024 9:[address] Velasquez would like the patient to start Amiodarone 200 mg PO TID for one week. Then take 200 mg PO daily. She will need to have weekly INR's for 2 weeks and have an external cardioversion done in 3 weeks. DNS meds. * Telephone Encounter - Deonna Valdes RN - 08/04/2024 8:59 AM EDT Called to speak with patient. I communicated to her that we have sent a message to the provider andare awaiting a response. She is aware someone will be in contact to follow up. * Telephone Encounter - Vianey Donaldson RegSched Rep - 08/03/2024 10:56 AM EDT Caller: Michelle Felipe Relationship: Self Best call back number: [phone] What was the call regarding: PT CALLED BACK TO GET A STATUS UPDATE ON HER SCHEDULING REQUEST FOR A CARDIOVERSION. SHE IS NOT FEELING VERY WELL. SHE SAID HER CHEST IS FEELING A LITTLE HEAVY AND SHE THINKS SHE IS IN AFIB. THIS HAS BEEN GOING ON FOR SEVERAL MONTHS NOW. SHE ALSO HAS SOME GENERAL QUESTIONS THAT SHE WOULD LIKE TO ASK CLINICAL STAFF IN REGARDS TO HER CARE AND THIS PROCEDURE. PLEASE REACH OUT THOMPSON. * Telephone Encounter - Halima Moy RN - 07/30/2024 4:35 PM EDT Do you want me to go ahead and schedule her for a cardioversion since there was a major interactionbetween Tikosyn and Plaquenil? * Telephone Encounter - Mikel Bonner RegSched Rep - 07/30/2024 3:27 PM EDT Caller: Michelle Felipe Relationship: Self Best call back number: [phone] What is the best time to reach you: ANY Who are you requesting to speak with (clinical staff, provider, specific staff member): CLINICAL What was the call regarding: PATIENT CALLED TO INQUIRE IF DR VELASQUEZ IS GOING TO DO A CARDIOVERSION PROCEDURE ON HER. PLEASE CONTACT PATIENT AND ADVISE ON THIS ISSUE. Is it okay if the provider responds through MyChart: PLEASE CALL documented in this encounter Plan of Treatment Upcoming Encounters Date Type Department Care Team (Late st Contact Info) Description 12/02/2024 3:30 PM EDT Office Visit [facility] CARDIOLOGY [address] [place] [address] [place] [address] Sujit Reyes MD [address] [place] [address] 01/19/2025 1:45 PM EST Office Visit [facility] CARDIOLOGY [address] [place] [address] Naveen Velasquez MD [address] [place] [address] Scheduled Orders Name Type Priority Associated Diagnoses Orde r Schedule ECG 12 Lead ECG Routine Paroxysmal atrial fibrillation Ordered: 08/30/2024 documented as of this encounter Visit Diagnoses Diagnosis Paroxysmal atrial fibrillation- Primary Atrial fibrillation documented in this encounter Care Teams Merchandise Buyer Relationship Specialty Start Date End Date Alisa Kunz DO [address] [place] [address] PCP - General Internal Medicine 04/26/21 documented as of this encounter
--- OUTSIDE RECORDS SUMMARY | 2024-10-04 10:36 | XMS_ITS | Encounter Summary ---
Author Organization [facility] Address [address] [place] [address] Care Team Providers Care Custodial Worker Name Role Phone Alisa Kunz DO Primary Care Provider Kodi Bustos DO Unavailable [phone] Sujit Arriola MD Unavailable [phone] Sujit Reyes MD Unavailable [phone] Patricia Yañez LPN Unavailable Unavailab le Reason for Visit * Reason Onset Date Comments HCN Clinical Concern/Question 08/30/2024 Encounter Details Date Type Department Care Team (Late st Contact Info) Description 08/30/2024 Telephone [facility] Internal Medicine [address], 3rd [place] [address] Alisa Kunz DO [address] [place] [address] HCN Clinical Concern/Question Social History [...] any clubs o r organizations such as amish groups, unions, fraternal or athletic groups, or [...] in a assisted (including now)? No 05/27/2024 Humiliation, Afraid, Rape, [...] living in a assisted (including now)? No 08/25/2024 CAGE ASSESSMENT Answer [...] drink first t anselmo in the morning (EYE-CENTRAL SUPPLY TECHNICIAN SUPERVISOR) to steady your nerves or to [...] * Telephone Encounter - Shannen Stephens - 08/31/2024 1:01 PM EDT Placed referral for since the one in the computer [facility]ed order and got confirmation * Telephone Encounter - Sofia Hernadez - 08/30/2024 2:42 PM EDT Clinical Concern/Question Reason for Call: pt has called [facility] today, was told they dont have an order in but have her pcp send order for home health to them. Please call pt if you have any questions. thx Best contact number: [phone] (home) Optimal time of day to reach [...] Description 10/07/2024 12:50 PM EDT Office Visit [facility] Otolaryngology [address], 3rd [place] [address] Chris Pepe MD [address] [place] [address] 10/07/2024 4:00 PM EDT Appointment Cardiac Imaging [address] [place] [address] 10/14/2024 11:00 AM EDT Office Visit [facility] Medicine Specialties [address], 2nd [place] [address] Cristian Zimmer MD [address] [place] [address] 10/18/2024 7:40 AM EDT [facility] [address], 3rd [place] [address] Alisa Kunz DO [address] [place] [address] 10/25/2024 10:00 AM EDT Office Visit [facility] Nephrology, Bone & Mineral Metabolism [address], [address] [place] [address] Bryon Brandon MD [address] [place] [address] 10/27/2024 1:40 PM EDT Office Visit [facility] Endocrinology [address] [place] [address] Anne-Marie Kolb L, AIR TESTER [address] [place] [address] 02/02/2025 8:40 AM EST [facility] [address], 3rd [place] [address] Alisa Kunz DO [address] [place] [address] documented as of this encounter [...] documented as of this encounter Care Teams Custodial Worker Relationship Specialty Start Date End Date Alisa Kunz DO [address] [place] [address] PCP - General Internal Medicine 03/13/21 Kodi Bustos DO [address] [address] Surgeon Cardiothoracic Surgery 11/06/22 Sujit Arriola MD [address] [place] [address] Consulting Physician Pulmonary Disease 11/06/22 Sujit Reyes MD [address] [address] Referring Physician 12/04/22 Patricia Yañez LPN [facility] TCM Nurse 08/25/24 documented as of this encounter
--- OUTSIDE RECORDS SUMMARY | 2024-10-04 10:36 | XMS_ITS | Encounter Summary ---
Author Organization [facility] Address [address] [place] [address] Care Team Providers Care Commercial Field Inspector Name Role Phone Alisa Kunz DO Primary Care Provider [phone] Kodi Bustos DO Unavailable [phone] Sujit Arriola MD Unavailable [phone] Sujit Reyes MD Unavailable [phone] Patricia Yañez LPN Unavailable Unavailab Zee Lr DO Unavailable [phone] Encounter Details Date Type Department Care Team (Late st Contact Info) Description 09/09/2024 Telephone [facility] Medicine Specialties [address], [address] [place] [address] [place] [address] Social History Tobacco Use Types Packs/Day Years [...] week 08/30/2022 How often do you attend [facility] or pentecostalism services? 1 to 4 times [...] Recorded Patient Health Questionnaire-2 Score 0 09/08/2024 [facility] of Occupat ional Health - Occupational Stress [...] living in a correction (including now)? No 08/25/2024 CAGE ASSESSMENT Answer [...] drink first t anselmo in the morning (EYE-BUS GREASER) to steady your nerves or to get [...] * Telephone Encounter - Charo Donaldson - 09/09/2024 11:33 AM EDT Patient's daughter called She has concerns as Michelle has a thoracentesis scheduled for 10/07, but patient is very winded and almost unable to talk due to fluid buildup She's also producing dark green phlegm She's wondering if it would be possible to get the thoracentesis for sooner than 10/07 without having to go through the ER CB: [phone] to reach daughter Madyson - patient is with her in the room at the time of the call documented in this encounter Plan of Treatment Upcoming Encounters Date Type Department Care Team (Late st Contact Info) Description 10/07/2024 12:50 PM EDT Office Visit [facility] Otolaryngology [address] 3rd [place] [address] Chris Pepe MD [address] [place] [address] 10/07/2024 4:00 PM EDT Appointment Cardiac Imaging [address] [place] [address] 10/14/2024 11:00 AM EDT [facility] Medicine Specialties [address], [address] [place] [address] Cristian Zimmer MD [address] [place] [address] 10/18/2024 7:40 AM EDT Office Visit [facility] Internal Medicine [address], [address]rd [place] [address] Alisa Kunz, [address] [place] [address] 10/25/2024 10:00 AM EDT Office Visit [facility] [place] Nephrology, Bone & Mineral Metabolism [address] [facility], [address] [place] [address] Bryon Brandon MD [address] [place] [address] 10/27/2024 1:40 PM EDT Office Visit [facility] Endocrinology [address] [place] [address] Anne-Marie Kolb L, WIRE SPIRAL BINDER [address] [place] [address] 02/02/2025 8:40 AM EST Office Visit [facility] Internal Medicine [address], [address]rd [place] [address] Alisa Kunz DO [address] [place] [address] documented as of this encounter [...] documented as of this encounter Care Teams Commercial Field Inspector Relationship Specialty Start Date End Date Alisa Kunz DO [address] [place] [address] PCP - General Internal Medicine 03/13/21 Kodi Bustos DO [address] [place] [address] Surgeon Cardiothoracic Surgery 11/06/22 Sujit Arriola MD [address] [place] [address] Consulting Physician Pulmonary Disease 11/06/22 Sujit Reyes MD [address] [place] [address] Referring Physician 12/04/22 Patricia Yañez LPN [facility] TCM Nurse 08/25/24 Zee Lazar DO [address] [place] [address] Resident 09/08/24 documented as of this encounter
--- OUTSIDE RECORDS SUMMARY | 2024-10-04 10:36 | XMS_ITS | Encounter Summary ---
Author Organization [facility] Address [address] [place] [address] Care Team Providers Care Swinging Cut Off Saw Operator Name Role Phone Alisa Kunz DO Primary Care Provider [phone] Kodi Bustos DO Unavailable [phone] Sujit Arriola MD Unavailable [phone] Sujit Reyes MD Unavailable [phone] Patricia Yañez LPN Unavailable Unavailab Zee Lr DO Unavailable [phone] Reason for Visit * Reason Onset Date Comments HCN - Patient Message 09/08/2024 Encounter Details Date Type Department Care Team (Late st Contact Info) Description 09/08/2024 Telephone [facility] Internal Medicine [address], 3rd [place] [address] Alisa Kunz DO [address] [place] [address] HCN - Patient Message Social [...] How often do you attend chur or sikhism services? 1 to 4 times [...] Patient Health Questionnaire-2 Score 0 09/08/2024 [facility] of Occupat ional Health - Occupational [...] living in a detention (including now)? No 08/25/2024 CAGE ASSESSMENT Answer [...] drink first t anselmo in the morning (EYE-ALUMINUM SHINGLE ROOFER) to steady your nerves or to get rid of a hangover? 0 08/14/2024 CAGE Questionnaire Score 0 025 Utilities Answer Date Recorded In the past 12 months has th e [employer], gas, oil, or water [employer] threatened to shut off services in your [...] (Past 1 Month) No 09/08/2024 11:19 AM Adalid Barreto 6. Suicidal Behavior (Lifetime) No 11:19 AM Shashank Barreto documented as of this encounter Miscellaneous Notes * Telephone Encounter - Shannen Stephens - 09/08/2024 4:07 PM EDT Left detailed vm advising of Dr Kunz's message * Telephone Encounter - Alisa Kunz DO - 09/08/2024 3:24 PM EDT She can head home only preliminary things are back but no DVT on preliminary read and CXR does haveworsening effusion but I'm [facility] to get [facility] opinion: labs won't be back untillate today, I'll call her with all the final results. * Telephone Encounter - Naty Sykes - 09/08/2024 2:35 PM EDT Patient Phone Message Reason for Call: She is wanting to let Dr. Kunz know that they have had the ultrasound and x ray and blood work. She was told not to go home until they have the results. Please call Best contact number and optimal time of day to reach caller: [phone] Note: Please do not reply to this [...] Description 10/07/2024 12:50 PM EDT Office Visit [facility] Otolaryngology [address] 3rd [place] [address] Chris Pepe MD [address] [place] [address] 10/07/2024 4:00 PM EDT Appointment Cardiac Imaging [address] [place] [address] 10/14/2024 11:00 AM EDT [facility] Medicine Specialties [address], 2nd [place] [address] Cristian Zimmer MD [address] [place] [address] 10/18/2024 7:40 AM EDT Office Visit [facility] Internal Medicine [address], 3rd [place] [address] Alisa Kunz, DO [address] [facility] [address] [place] [address] 10/25/2024 10:00 AM EDT Office Visit [facility] Nephrology, Bone & Mineral Metabolism [address] [facility], [address] [place] [address] Bryon Brandon MD [address] [place] [address] 10/27/2024 1:40 PM EDT Office Visit [facility] Endocrinology [address] [place] [address] Anne-Marie Kolb L, AIR CARGO GROUND CREW SUPERVISOR [address] [facility] [address] [place] [address] 02/02/2025 8:40 AM EST Office Visit [facility] Internal Medicine [address], 3rd [place] [address] Alisa Kunz, DO [address] [place] [address] documented as of this encounter [...] documented as of this encounter Care Teams Swinging Cut Off Saw Operator Relationship Specialty Start Date End Date Alisa Kunz DO [address] [place] [address] PCP - General Internal Medicine 03/13/21 Kodi Bustos DO [address] [place] [address] Surgeon Cardiothoracic Surgery 11/06/22 Sujit Arriola MD [address] [place] [address] Consulting Physician Pulmonary Disease 11/06/22 Sujit Reyes MD [address] [place] [address] Referring Physician 12/04/22 Patricia Yañez LPN [facility] TCM Nurse 08/25/24 Zee Lazar DO [address] [place] [id number] Resident 09/08/24 documented as of this encounter
--- OUTSIDE RECORDS SUMMARY | 2024-10-04 10:36 | XMS_ITS | Encounter Summary ---
Author Organization [facility] Address [address] [place] [address] Care Team Providers Care Continuous Drier Helper Name Role Phone Alisa Kunz DO Primary Care Provider [phone] Kodi Bustos DO Unavailable [phone] Sujit Arriola MD Unavailable Sujit Reyes MD Unavailable [phone] Patricia Yañez LPN Unavailable Unavailab Zee Lr DO Unavailable [phone] Reason for Referral * Consultation (Routine) - Authorized Specialty Diagnoses / Procedures Referred By Contdarwin t Referred To Contact Pulmonary Disease Diagnoses Pleural effusion on right Art Olmos MD [address] [place] [address] Phone: tel: fax: Referral ID Status Reason Start Date Expiration Date Visits Requested Visits Authorized [id number] Authorized Specialty Services Required 09/08/2024 03/10/2026 1 1 Encounter Details Date Type Department Care Team (Late st Contact Info) Description 09/08/2024 Orders Only [facility] Medicine Specialties [address], [address]nd [place] [address] Lavern Shoemaker MD [address] [place] [address] Pleural effusion on right (Primary Dx) Social History Tobacco Use Types [...] How often do you attend chur or restorationist services? 1 to 4 times [...] Recorded Patient Health Questionnaire-2 Score 0 09/08/2024 [facility] of Occupat ional Health - Occupational Stress [...] in the past 12 m [facility], were you homeless or living [...] in the past 12 m [facility], were you homeless or living [...] drink first t anselmo in the morning (EYE-TIP MENDER) to steady your nerves or to get [...] much Not at all 09/08/2024 11:19 AM JANET Shashank Burrows Feeling tired or having vasquez [...] Assessment Author No Risk Indicated 09/13/2024 8:00 AM EDT Britt Turner RN * If you checked off any [...] Wish to be (Past 1 Month) No 09/13/2024 8:00 AM EDT Lucia Rosenthal RN 2. Non-Specific Active Suicidal Thoughts (Past 1 Month) No 09/13/2024 8:00 AM EDT Lucia Rosenthal, EVITA 6. Suicidal Behavior (Lifetime) No 09/13/2024 8:00 AM EDT Lucia Rosenthal RN documented as of this encounter Plan of Treatment Upcoming Encounters Date Type Department Care Team (Late st Contact Info) Description 10/07/2024 12:50 PM EDT Office Visit [facility] Otolaryngology [address] 3rd [place] [address] Chris Pepe MD [address] [place] [address] 10/07/2024 4:00 PM EDT Appointment Cardiac Imaging [address] [place] [address] 10/14/2024 11:00 AM EDT Office Visit [facility] Medicine Specialties [address], [address] [place] [address] Cristian Zimmer MD [address] [place] [address] 10/18/2024 7:40 AM EDT Office Visit [facility] Internal Medicine [address], 3rd [place] [address] Alisa Kunz DO [address] [place] [address] 10/25/2024 10:00 AM EDT Office Visit [facility] Nephrology, Bone & Mineral Metabolism [address] [facility], [address] [place] [address] Bryon Brandon MD [address] [place] [address] 10/27/2024 1:40 PM EDT Office Visit [facility] Endocrinology [address] [place] [address] Anne-Marie Kolb, SWIMMING POOL INSTALLER AND SERVICER [address] [place] [address] 02/02/2025 8:40 AM EST Office Visit [facility] Internal Medicine [address], 3rd [place] [address] Alisa Kunz DO [address] [place] [address] Scheduled Referrals Name Type Priority Associated Diagnoses Order Schedule Ambulatory referral to Pulmonology Outpatient Referral Routine Pleural effusion on right Expected: 09/08/2024 (Approximate), Expires: 03/12/2026 documented as of this encounter Visit Diagnoses Diagnosis Pleural effusion on right- Primary Unspecified pleural effusion documented in this encounter [...] documented as of this encounter Care Teams Continuous Drier Helper Relationship Specialty Start Date End Date Alisa Kunz DO [address] [place] [address] PCP - General Internal Medicine 03/13/21 Kodi Bustos DO [address] [address] Surgeon Cardiothoracic Surgery 11/06/22 Sujit Arriola MD [address] [place] [address] Consulting Physician Pulmonary Disease 11/06/22 Sujit Reyes MD [address] [place] [address] Referring Physician 12/04/22 Patricia Yañez LPN [facility] TCM Nurse 08/25/24 Zee Lazar DO [address] [place] [id number] Resident 09/08/24 documented as of this encounter
--- OUTSIDE RECORDS SUMMARY | 2024-10-04 10:36 | XMS_ITS | Referral Summary ---
Author Organization [employer] [facility] ([place], [place], [place], [place]) Address [address] [place] [address] Care Team Providers Care Knitter Machine Name Role Phone Unavailable Primary Care Provider [...]
--- OUTSIDE RECORDS SUMMARY | 2024-10-04 10:36 | XMS_ITS | Encounter Summary ---
Author Organization [facility] Address [address] [place] [address] Care Team Providers Care Power Plant Manager Name Role Phone ZeAlisa Torri SOLIS Primary Care Provider [phone] Kodi Bustos DO Unavailable [phone] Sujit Arriola MD Unavailable [phone] Sujit Reyes MD Unavailable [phone] Patricia Yañez LPN Unavailable Unavailab Zee Lr DO Unavailable [phone] Encounter Details Date Type Department Care Team (Late st Contact Info) Description 09/09/2024 Results Follow-Up [facility] Internal Medicine [address], [address]rd [place] [address] Zee Lazar DO [address] [place] [address] Social History Tobacco Use Types [...] Patient Health Questionnaire-2 Score 0 09/08/2024 [facility] of Occupat ional Health - [...] living in a mcfp (including now)? No 09/13/2024 CAGE ASSESSMENT Answer [...] drink first t anselmo in the morning (EYE-BOREMATIC OPERATOR) to steady your nerves or to [...] Date of Assessment Author No Risk Indicated 09/12/2024 8:00 PM EDT Candace Horne RN * Question Answer Date of Assessment Author 1. Wish to be (Past 1 Month) No 025 8:00 PM EDT Candace Horne RN 2. Non-Specific Active Suici dillon Thoughts (Past 1 Month) No 09/12/2024 8:00 PM EDT Courtney Horne RN 6. Suicidal Behavior (Lifetime) No 8:00 PM EDT Candace Horne RN documented as of this encounter Plan of Treatment Upcoming Encounters Date Type Department Care Team (Late st Contact Info) Description 10/07/2024 12:50 PM EDT Office Visit [facility] Otolaryngology [address] [place] [address] Chris Pepe MD [address] [place] [address] 10/07/2024 4:00 PM EDT Appointment Cardiac Imaging [address] [place] [address] 10/14/2024 11:00 AM EDT Office Visit [facility] Medicine Specialties [address] [place] [address] Cristian Zimmer MD [address] [place] [address] 10/18/2024 7:40 AM EDT Office Visit [facility] Internal Medicine [address], [address]rd [place] [address] Alisa Kunz, [address] [place] [address] 10/25/2024 10:00 AM EDT Office [facility] Nephrology, Bone & Mineral Metabolism [address] [facility], [address] [place] [address] Bryon Brandon MD [address] [place] [address] 10/27/2024 1:40 PM EDT Office Visit [facility] Endocrinology [address] [place] [address] Anne-Marie Kolb L, PIPE MAKER [address] [place] [address] 02/02/2025 8:40 AM EST Office Visit [facility] Internal Medicine [address], [address] [place] [address] Alisa Kunz DO [address] [place] [address] documented as of this encounter [...] documented as of this encounter Care Teams Power Plant Manager Relationship Specialty Start Date End Date Alisa Kunz DO [address] [place] [address] PCP - General Internal Medicine 03/13/21 Kodi Bustos DO [address] [place] [address] Surgeon Cardiothoracic Surgery 11/06/22 Sujit Arriola MD [address] [place] [address] Consulting Physician Pulmonary Disease 11/06/22 Sujit Reyes MD [address] [place] [address] Referring Physician 12/04/22 Patricia Yañez LPN [facility] TCM Nurse 08/25/24 Zee Lazar DO [address] [place] [address] Resident 09/08/24 documented as of this encounter
--- OUTSIDE RECORDS SUMMARY | 2024-10-04 10:36 | XMS_ITS ---
Author Organization [facility] Address [address] [place] [address] Care Team Providers Care Screw Machine Operator Name Role Phone Alisa Kunz DO Primary Care Provider [phone] Kodi Bustos DO Unavailable [phone] Sujit Arriola MD Unavailable [phone] Sujit Reyes MD Unavailable [phone] Patricia Yañez LPN Unavailable Unavailab Zee Lr DO Unavailable [phone] Transitional Care Management Status:Active (Active) Start date:09/17/2024 Enrollment date:09/17/2024 Enrollment reason:Identified using hospital discharge data Overview This episode type is for outpatient care managers enrolling patients in the [facility] Transitional Care Management program. Case Team Name Relationship Phone Patricia Yañez LPN(Responsible Staff) [facility] Continued Care and Services Coordination
--- OUTSIDE RECORDS SUMMARY | 2024-10-04 10:36 | XMS_ITS | Clinical Summary ---
Author Organization [email or web address] ([place], [place], [place], [place]) Address [address] [place] [address] Care Team Providers Care Mechanical Project Manager Name Role Phone Unavailable Primary Care Provider [...]
--- OUTSIDE RECORDS SUMMARY | 2024-10-04 10:36 | XMS_ITS | Encounter Summary ---
Author Organization [facility] Address [address] [place] [address] Care Team Providers Care Fibrous Wallboard Inspector Name Role Phone Alisa Kunz DO Primary Care Provider [phone] Kodi Bustos DO Unavailable [phone] Sujit Arriola MD Unavailable [phone] Sujit Reyes MD Unavailable [phone] Patricia Yañez LPN Unavailable Unavailab Zee Lr DO Unavailable [phone] Encounter Details Date Type Department Care Team (Latest Contact Info) Description 09/09/2024 Travel Social History Tobacco Use Types Packs/Day [...] Recorded Patient Health Questionnaire-2 Score 0 09/08/2024 [facility] - Occupational [...] any time in the past 12 m [facility], were you homeless or living in [...] any time in the past 12 m [facility], were you homeless or living in [...] drink first t anselmo in the morning (EYE-RETAIL PLANNING MANAGER) to steady your nerves or to get rid of a hangover? 0 08/14/2024 CAGE Questionnaire Score 0 025 Utilities Answer Date Recorded In the past 12 months has th e electric, gas, oil, or water [employer] threatened to shut off services in your [...] 8:23 PM EDT Sandra Cunha RN * Question Answer Date of Assessment Author 1. Wish to be (Past 1 Month) No 025 8:23 PM EDT Sandra Cunha, EVITA 2. Non-Specific Active Suici dillon Thoughts (Past 1 Month) No 09/09/2024 8:23 PM EDT Dwayne Cunha RN 6. Suicidal Behavior (Lifetime) No 8:23 PM EDT Sandra Cunha RN documented as of this encounter Plan of Treatment Upcoming Encounters Date Type Department Care Team (Late st Contact Info) Description 10/07/2024 12:50 PM EDT [facility] [address] [place] [address] Chris Pepe MD [address] [place] [address] 10/07/2024 4:00 PM EDT Appointment Cardiac Imaging [address] [place] [address] 10/14/2024 11:00 AM EDT [facility] [address] [place] [address] Cristian Zimmer MD [address] [place] [address] 10/18/2024 7:40 AM EDT Office Visit [facility] Internal Medicine [address], [address] [place] [address] lAisa Kunz, DO [address] [place] [address] 10/25/2024 10:00 AM EDT Office Visit [facility] Nephrology, Bone & Mineral Metabolism [address] [facility], [address] [place] [address] Bryon Brandon MD [address] [place] [address] 10/27/2024 1:40 PM EDT Office Visit [facility] Endocrinology [address] [place] [phone] Anne-Marie Kolb L, AS400 OPERATOR [address] [facility] [address] [place] [address] 02/02/2025 8:40 AM EST Office Visit [facility] Internal Medicine [address] [place] [address] Alisa Kunz, DO [address] [place] [address] documented as of this encounter [...] documented as of this encounter Care Teams Fibrous Wallboard Inspector Relationship Specialty Start Date End Date Alisa Kunz DO [address] [place] [address] PCP - General Internal Medicine 03/13/21 Kodi Bustos DO [address] [place] [address] Surgeon Cardiothoracic Surgery 11/06/22 Sujit Arriola MD [address] [place] [address] Consulting Physician Pulmonary Disease 11/06/22 Sujit Reyes MD [address] [place] [address] Referring Physician 12/04/22 Patricia Yañez LPN [facility] TCM Nurse 08/25/24 Zee Lazar DO [address] [place], [place] [phone] Resident 09/08/24 documented as of this encounter
--- OUTSIDE RECORDS SUMMARY | 2024-10-04 10:36 | XMS_ITS | Encounter Summary ---
Author Organization [facility] Address [address] [place] [address] Care Team Providers Care Computer Bookkeeper Name Role Phone Alisa Kunz DO Primary Care Provider [phone] Kodi Bustos DO Unavailable [phone] Sujit Arriola MD Unavailable [phone] Sujit Reyes MD Unavailable [phone] Patricia Yañez LPN Unavailable Unavailab Zee Lr DO Unavailable [phone] Encounter Details Date Type Department Care Team (Late st Contact Info) Description 09/09/2024 Telephone [facility] [address] [place] [address] Shannen Emmanuel RN CH-VASCULAR & INTERVENTIONAL RADIOLOGY Social History [...] week 08/30/2022 How often do you attend [facility] or [employer] [facility]? 1 to 4 times [...] Recorded Patient Health Questionnaire-2 Score 0 09/08/2024 [facility] Occupat ional [...] time in the past 12 m [facility], were you homeless or living in a [place] (including now)? No 05/27/2024 Humiliation, Afraid, Rape, [...] time in the past 12 m [facility], were you homeless or living in a [place] (including now)? No 08/25/2024 CAGE ASSESSMENT Answer [...] drink first t anselmo in the morning (EYE-LITHOPRESS OPERATOR) to steady your nerves or to get rid of a hangover? 0 08/14/2024 CAGE Questionnaire Score 0 025 Utilities Answer Date Recorded In the past 12 months has th [employer] electric, gas, oil, or water company threatened [...] Miscellaneous Notes * Telephone Encounter - Shannen Emmanuel RN - 09/09/2024 12:11 PM EDT I spoke with the patient and the patient's daughter. The patient is having to have thoracentesis done regularly. Patient stated they are getting liter off of her each time. Patient said she is scheduled for a thora on the . The patient is having a hard time breathing and I advised her she could not wait until the . I advised the patient to go to the ER. Patient was hesitant but I explained if nothing is found she could get fluid removed, chest x-ray and go home. I did advise if nothing else was found. Patient was in agreement to go to the ER and so was her daughter. documented in this encounter Plan of Treatment Upcoming Encounters Date Type Department Care Team (Late st Contact Info) Description 10/07/2024 12:50 PM EDT Office Visit [facility] Otolaryngology [address] [place] [address] Chris Pepe MD [address] [place] [address] 10/07/2024 4:00 PM EDT Appointment Cardiac Imaging [address] [place] [address] 10/14/2024 11:00 AM EDT Office Visit [facility] Medicine Specialties [address] [place] [address] Cristian Zimmer MD [address] [place] [address] 10/18/2024 7:40 AM EDT Office Visit [facility] Internal Medicine [address] [place] [address] Alisa Kunz L, DO [address] [place] [address] 10/25/2024 10:00 AM EDT Office Visit [facility] Nephrology, Bone & Mineral Metabolism [address] [facility], [address] [place] [address] Bryon Brandon MD [address] [place] [address] 10/27/2024 1:40 PM EDT Office Visit [facility] Endocrinology [address] [place] [address] Anne-Marie Kolb, SEMICONDUCTOR PROCESSING TECHNICIAN [address] [place] [address] 02/02/2025 8:40 AM EST Office Visit [facility] Internal Medicine [address] [place] [address] Alisa Kunz DO [address] [place] [address] documented as of this encounter [...] documented as of this encounter Care Teams Computer Bookkeeper Relationship Specialty Start Date End Date Alisa Kunz DO [address] [facility] [address] [place] [address] PCP - General Internal Medicine 03/13/21 Kodi Bustos DO [address] [place] [address] Surgeon Cardiothoracic Surgery 11/06/22 Sujit Arriola MD [address] [place] [address] Consulting Physician Pulmonary Disease 11/06/22 Sujit Reyes MD [address] [place] [address] Referring Physician 12/04/22 Patricia Yañez LPN [facility] TCM Nurse 08/25/24 Zee Lazar DO [address] [place] [address] Resident 09/08/24 documented as of this encounter
--- OUTSIDE RECORDS SUMMARY | 2024-10-04 10:37 | XMS_ITS | Encounter Summary ---
Author Organization [facility] Address [address] [place] [address] Care Team Providers Care Radio Adjuster Name Role Phone Alisa Kunz Primary Care Provider [phone] Encounter Details Date Type Department Care Team (Latest Contact Info) Description 09/20/2024 Travel Social History Tobacco Use Types Packs/Day [...] Description 12/02/2024 3:30 PM EDT Office Visit [facility] CARDIOLOGY [address] [place] [address] [address] Sujit Reyes MD [address] [facility] [address] [place] [address] 01/19/2025 1:45 PM EST Office Visit [facility] CARDIOLOGY [address] [facility] [address] [place] [address] Naveen Velasquez MD [address] [facility] [address] [place] [address] documented as of this encounter Visit Diagnoses Not on filedocumented in this encounter Care Teams Radio Adjuster Relationship Specialty Start Date End Date Alisa Kunz DO [address] [place], [place] [phone] PCP - General Internal Medicine 04/26/21 documented as of this encounter
--- OUTSIDE RECORDS SUMMARY | 2024-10-04 10:37 | XMS_ITS | Encounter Summary ---
Author Organization [facility] Address [address] [place] [address] Care Team Providers Care Lead C Developer Name Role Phone Alisa Kunz Primary Care Provider [phone] Reason for Visit * Reason Comments Med Refill Encounter Details Date Type Department Care Team (Late st Contact Info) Description 09/06/2024 Refill [facility] CARDIOLOGY [address] [facility] [address] [place] [address] Sujit Reyes MD [address] [facility] [address] [place] [id number] Med Refill Social History Tobacco Use Types [...] encounter Miscellaneous Notes * Telephone Encounter - Kriss Del Rosario RN - 09/06/2024 8:37 AM EDT Requested annual lab work documented in this encounter Plan of Treatment Upcoming Encounters Date Type Department Care Team (Late st Contact Info) Description 12/02/2024 3:30 PM EDT Office Visit [facility] CARDIOLOGY [address] [facility] [place] [address] Sujit Reyes MD [address] [place], [place] [id number] 01/19/2025 1:45 PM EST Office Visit [facility] CARDIOLOGY [address] [place] [address] Naveen Velasquez MD [address] [place] [address] documented as of this encounter Visit Diagnoses Not on filedocumented in this encounter Care Teams Lead C Developer Relationship Specialty Start Date End Date Alisa Kunz DO [address] [place] [address] PCP - General Internal Medicine 04/26/21 documented as of this encounter
--- OUTSIDE RECORDS SUMMARY | 2024-10-04 10:37 | XMS_ITS | Data Portability ---
Author Organization [facility] - Edgar montgomery MD, Main Office Address [address], [address] [place] [address] Care Team Providers Care State Director Name Role Phone BRUCE BOYER Primary Care Provider [phone] Assessment No assessment recorded. Plan of Treatment [...] By Organization Details Last Modified Time 08/21/2021 [id number] Finding has been discussed with the patient in detail. Outpatient physical therapy referral for strengthening of her lower extremities. I anticipate that she should be able to walk in the next few months. Return as needed. Not available 08/21/2021 08:50:00 01/10/2022 [id number] Finding has been discussed with the patient [...] Body weight Heart rate Respiratory rate Systolic And Diastolic Provider Name and Address Organization Details Last Updated DateTime 162.56 cm 25.7 kg/m2 55820.8 6 g 79 /min 17 /min 127/76 mm[Hg] Edgar Irwin MD [address] , [facility] [address], [place], [address] [facility] MD 08:45:55 Date Recorded Body mass index (BMI) Body weight Heart rate Respiratory rate Systolic And Diastolic Provider Name and Address Organization Details Last Updated DateTime 01/10/2022 25.9 kg/m2 62465.4 5 g 80 /min 16 /min 132/77 mm[Hg] Edgar Irwin MD [address], [facility] [address], [place], [address], [facility] Irwin MD 14:54:47 Date Recorded Body height Provider Name [...] available 2021 08:13:34 Medical History Condition Response Anxiety Disorder Y Diabetes Y Arthritis Y Hyperlipidemia Y Heart Disease Y Stroke Y Hypertension Y Depression Y Gynecological HistoryNo gynecological history recorded. 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 [id number] Edgar Irwin MD Main Office [address], [facility] [place] [address] 01/10/2022 10:56:27 01/10/2022 11:33:09 Impairment of balance [id number] R26.89 The patient is a 71-year-ol d [...] Byrne Member ID Guarantor Name 01/08/2022 1 [facility] (MEDICARE REPLACEMENT/A DVANTAGE - PPO) [id number] Michelle Felipe [id number] Michelle Felipe OBGyn Episode No OBEpisode recorded.
--- OUTSIDE RECORDS SUMMARY | 2024-10-04 10:37 | XMS_ITS | Clinical Summary ---
Author Organization [facility] ystem Address [address] [place] [address] Care Team Providers Care Forest [employer] W[employer] Name Role Phone Alisa Kunz Primary Care Provider [phone] Allergies Active Allergy Reactions Criticality Noted Date Comments Azathioprine Unknown (See Comments) Low 07/06/2020 Cephalexin Rash Low 02/09/2019 Atorvastatin Myalgia Medium 02/29/2016 Morphine And Codeine Hallucinations Medium 02/17/2017 Penicillins Rash Low 05/04/2020 Pravastatin Other (See Comments) Low 02/29/2016 Doesn't remember this rxn-from 3 yrs ago Rosuvastatin Unknown - Low Severity 01/03/2023 Tetracyclines & Related Rash Low 02/17/2017 Medications Calcium Citrate-Vitam in D (CALCIUM + D PO) Take 1 tablet by mouth Daily. Active Insulin Glargine (TOUJEO SOLOSTAR SC) Inject 6 Units under the skin into the appropriate area as directed 2 (Two) Times a Day. Active pitavastatin calcium (LIVALO) 2 MG tablet tablet Take 1 tablet by mouth Every Night. Active levothyroxine (SYNTHROID, LEVOTHROID) 125 MCG tablet Take 1 tablet by mouth Daily. Active latanoprost (XALATAN) 0.005 % ophthalmic solution Administer 1 drop to both eyes Every Night. 6 06/17/19 19 Active DULoxetine (CYMBALTA) 20 MG capsule Take 1 capsule by mouth Every Morning. Active Trelegy Ellipta 200-62.5-25 MCG/INH inhaler Inhale 1 puff Daily. 07/19/19 Active gabapentin (NEURONTIN) 100 MG capsule Take by mouth 2 (Two) Times a Day. 300 mg po qam and 600 mg po qpm 08/30/19 23 Active hydroxychloro quine (PLAQUENIL) 200 MG tablet Take 1 tablet by mouth Every Night. 12/07/19 23 Active brimonidine (ALPHAGAN) 0.2 % ophthalmic solution Administer 1 drop to both eyes Every Night. 06/16/19 24 Active metoprolol succinate XL (TOPROL-XL) 25 MG 24 hr tablet Take 1 tablet by mouth Daily. 90 tablet 3 12/08/19 24 Active Additional Information Patient taking differently:25 mg OralNightly, Reported on 09/24/2024 Insulin Lispro (humaLOG) 100 UNIT/ML injection Inject 3 Units under the skin into the appropriate area as directed 3 (Three) Times a Day Before Meals. Active DULoxetine (CYMBALTA) 60 MG capsule Take 1 capsule by mouth Every Morning. 60mg and 20mg in the morning Active folic acid (FOLVITE) 1 MG tablet Take 1 tablet by mouth Daily. Active aspirin 81 MG EC tablet Take 1 tablet by mouth Every Night. Active cetirizine (zyrTEC) 10 MG tablet Take 1 tablet by mouth Every Night. Active glucose (DEX4) 4 GM chewable tablet Chew 4 tablets. 11/24/19 Active glucagon (GLUCAGEN) 1 MG injection Inject 1 mg under the skin into the appropriate area as directed. 02/04/20 24 Active Urine Glucose-Keton es Test (Keto-Diastix ) strip Use daily as needed per endocrinology 02/04/20 24 Active furosemide (LASIX) 20 MG tablet Take 1 tablet by mouth As Needed (take for edema, increase in weight 3 lbs.). 90 tablet 3 02/17/20 24 Active nitroglycerin (NITROSTAT) 0.3 MG SL tablet 1 under the tongue as needed for angina, may repeat q5mins for up three doses 25 tablet 1 04/12/19 25 Active Additional Information Patient taking differently: 1 under the tongue as needed for angina, may repeat q5mins for up three doses. PT. HAS NOT HAD TO TAKE THIS YET., Reported on 09/24/2024 warfarin (COUMADIN) 5 MG tablet TAKE 1/2 TO 1 TABLET ONCE A DAY OR DIRECTED 30 tablet 2 07/13/19 Active Additional Information Patient taking differently: TAKE 1/2 TO 1 TABLET ONCE A DAY OR DIRECTED. TAKES WARFARIN 2.5 MG PO ON FRIDAY AND 5 MG THE OTHER DAYS OF THE WEEK., Reported on 09/24/2024 acetaminophen (TYLENOL) 500 MG tablet Take 2 tablets by mouth Every 6 (Six) Hours As Needed. Active spironolacton e (ALDACTONE) 25 MG tablet Take 0.5 tablets by mouth Daily. 07/21/19 Active ezetimibe (ZETIA) 10 MG tablet TAKE 1 TABLET DAILY 90 tablet 3 09/07/19 Active Additional Information Patient taking differently:10 mg OralNightly, Reported on 09/24/2024 mycophenolate (CELLCEPT) 500 MG tablet Take 2 tablets by mouth 2 (Two) Times a Day. PT. HAS NOT STARTED THIS YET. Active ezetimibe (ZETIA) 10 MG tablet Take 1 tablet by mouth Daily. 90 tablet 3 09/22/19 24 2024 Discontinued azithromycin (ZITHROMAX) 250 MG tablet Take 1 tablet by mouth Daily. 2024 Discontinued(* Therapy completed) busPIRone (BUSPAR) 10 MG tablet Take 1 tablet by mouth 2 (Two) Times a Day. 2024 Discontinued(* Therapy completed) Ketostix strip 02/04/20 24 2024 Discontinued(S top Taking at Discharge) clindamycin 1 % gel 2024 Discontinued(S top Taking at Discharge) clobetasol propionate (TEMOVATE) 0.05 % cream 10/31/19 24 2024 Discontinued(S top Taking at Discharge) fluocinonide (LIDEX) 0.05 % gel 12/31/19 24 2024 Discontinued(* Therapy completed) mupirocin (BACTROBAN) 2 % ointment Apply 1 Application topically to the appropriate area as directed. 01/13/20 24 2024 Discontinued(S top Taking at Discharge) amLODIPine (NORVASC) 5 MG tablet Take 1 tablet by mouth Daily. 30 tablet 5 06/15/19 25 2024 Discontinued(* Therapy completed) methocarbamol (ROBAXIN) 500 MG tablet 04/26/19 25 2024 Discontinued(* Therapy completed) Active Problems Problem Noted Date Diagnosed Date Left ventricular apical thrombus 02/26/2024 Cellulitis 02/13/2024 Type 1 diabetes mellitus 02/12/2024 Cellulitis of right leg 02/12/2024 Hypoglycemia due to type 1 diabetes mellitus Overview (11/30/2020): Decrease insulin. Continue sensor as asymptomatic Abnormal stress test 04/26/2020 Overview (04/27/2020): MPS at [facility] (04/19/2020): Test is abnormal and suggest anterior ischemia. Normal LVEF Fatigue 12/09/2018 Syncope and collapse 08/18/2018 Complete heart block 08/18/2018 A-fib 08/16/2018 History of CVA (cerebrovascular accident) 2018 Laceration of head 08/16/2018 Hyponatremia 08/15/2018 Second degree AV block 08/15/2018 Overview (08/24/2018): Added automatically from request for surgery [id number] Chronic kidney disease 05/05/2012 Hereditary and idiopathic neuropathy 05/05/2012 CAD (coronary artery disease) Ischemic heart disease Overview (02/29/2016): a. CABG, Dr. Timur Lopez, July 1999. i. SHEEHAN to distal LAD. ii. SVG to first diagonal. iii. SVG to second diagonal. b. SHAR Warren metal stenting of the ostium of the SVG to second diagonal. c. Rotational atherectomy/PTCA of RCA and SVG to second diagonal in-stent. i. PTCRA/stenting of proximal RCA in-stent restenosis and rotational atherectomy/PTCA of SVG to second diagonal. d. Americo therapy for in-stent restenosis of proximal dominant RCA, 04/16/2001, LVEF (65%). e. [facility]: Dr. Thakkar for acute ME, 01/10/2007: i. Normal LV function and wall motion. ii. Patent SVG to second diagonal. iii. Patent SHEEHAN graft to LAD. iv. 50% ostial stenosis of SVG to first diagonal. v. JANA Taxus stenting of mid RCA stenosis. f. Mild reversible anteroischemia - Cardiac SPECT (scan date ?), LVEF (77%). g. [facility], May 2011, [facility], reportedly revealed no disease (data deficit) in setting of diabetic ketoacidosis associated with acute respiratory failure requiring mechanical ventilation x 5 days. Hypertension Dyslipidemia EWELINA (obstructive sleep apnea) Overview (02/09/2019): CPAP intolerant DM (diabetes mellitus), type 2 with complication s Diabetic retinopathy Diabetic neuropathy Depression Hypothyroidism Osteoarthritis Fibromyalgia Resolved Problems Problem Noted Date Diagnosed Date Resolved Date Syncope and collapse 08/15/2018 019 Obesity 02/09/2019 B12 deficiency anemia 2018 Encounters Date Type Department Care Team Description 10/04/2024 Telephone [facility] [address] [facility] [address] [place] [address]CRAGER - PPW REQUEST 09/28/2024 Anticoagulation Visit [facility] [address] [facility] [address] [place] [address] Yancy Viveros, Cfa Left ventricular apical thrombus (Primary Dx) 09/28/2024 Telephone [facility] [address] [facility] [address] [place] [address] Sujit Reyes MD Results 09/24/2024 Travel 09/22/2024 11:30 AM EDT Anticoagulation Visit [facility] [address] [facility] [address] [place] [address] Left ventricular apical thrombus (Primary Dx) 09/22/2024 Travel 09/21/2024 Telephone [facility] [address] [facility] [address] [place] [address] Marj Delgado, PharmD 09/20/2024 Telephone [facility] [address] [facility] [address] [place] [address] Marj Delgado, PharmD 09/20/2024 Travel 09/16/2024 Prep for Surgery [facility] [address] [place] [address] Peg Nails, PA-C 09/06/2024 Documentation [facility] [address] [facility] [address] [place] [address] Ekaterina Rand PA 09/06/2024 Telephone [facility] [address] [facility] [address] [place] [address]CRAGER - CALL BACK 09/06/2024 Refill [facility] [address] [facility] [address] [place] [address] Sujit Reyes MD Med Refill 09/02/2024 Anticoagulation Visit [facility] [address] [facility] [address] [place] [address] Mike Mariee, Cfa Left ventricular apical thrombus (Primary Dx) 08/31/2024 Documentation [facility] [address] [facility] [address] [place] [address] Naveen Velasquez MD 08/31/2024 Telephone [facility] [address] [facility] [address] [place] [address]TOMASSONI - CALL BACK 08/27/2024 2:55 PM EDT Lab [facility] [address] [place] [phone] Left ventricular apical thrombus; Left ventricular apical thrombus without ME 08/27/2024 1:30 PM EDT Anticoagulation Visit [facility] [address] [facility] [address] [place] [address] Left ventricular apical thrombus (Primary Dx); Left ventricular apical thrombus without ME 08/27/2024 Travel 08/26/2024 Anticoagulation Visit [facility] [address] [facility] [address] [place] [address] Yancy Viveros, Cfa Left ventricular apical thrombus (Primary Dx) 08/11/2024 Anticoagulation Visit [facility] [address] [facility] [address] [place] [address] Yancy Viveros, Cfa Left ventricular apical thrombus (Primary Dx) 08/04/2024 9:15 AM EDT Anticoagulation Visit [facility] [address] [facility] [address] [place] [address] Left ventricular apical thrombus (Primary Dx) 08/04/2024 Travel 07/30/2024 Telephone [facility] [address] [facility] [address] [place] [address] TOMASSONI -CARDIOVERSION 07/29/2024 Anticoagulation Visit [facility] [address] [facility] [address] [place] [address] Yancy Viveros, Cfa Left ventricular apical thrombus (Primary Dx) 07/28/2024 11:45 AM EDT Office Visit [facility] [address] [facility] [address] [place] [address] Naveen Velasquez MD Atrial fibrillation, persistent (Primary Dx); Complete heart block; Coronary artery disease involving buckland coronary artery of buckland heart without angina pectoris; Chronic diastolic congestive heart failure 07/28/2024 Travel 07/28/2024 Telephone [facility] [address] [facility] [address] [place] [address] Naveen Velasquez MD Appointment 07/19/2024 Telephone [facility] [address] [facility] [address] [place] [address]TOMASSONI- CALL BACK 07/19/2024 Telephone [facility] [address] [place] [address] Sujit Reyes MD Appointment 07/13/2024 Telephone [facility] [address] [facility] [address] [place] [address] Naveen Velasquez MD 07/12/2024 Documentation [facility] [address] [facility] [address] [place] [address] Naveen Velasquez MD 07/11/2024 Refill [facility] [address] [facility] [address] [place] [address] Sujit Reyes MD Med Refill 07/06/2024 Telephone [facility] [address] [facility] [address] [place] [address]CRAGER- MEDICATION CONCERNS from Last 3 Months Immunizations Immunization Administration Dates Next Due COVID-19 ([facility]) Purple Cap Monovalent 04/22/19 21,03/30/2020 Fluzone High-Dose 65+YRS 01/18/2019,12/19/2017 Hepatitis A 01/24/2019,01/23/2019,06/11/2018 Influenza TIV (IM) 12/08/2018 Pneumococcal Conjugate 13-Valent (PCV13) 020,07/02/2016 Pneumococcal Polysaccharide (PPSV23) 06/11/2018 Shingrix 01/24/2019,01/23/2019,06/11/2018 Family History Medical History Relation Name Comments COPD Father COPD Mother Gracy Candace Heart disease Mother Gracy Candace Stroke Mother Gracy Candace Relation Name Status Comments Father Mother Gracy Candace Social History Tobacco Use Types Packs/Day Years Used Date Smoking Tobacco: Never Passive Smoke Exposure: Never Smokeless Tobacco: Never Tobacco Cessation:Counseling Given: Not Answered Alcohol Use Standard Drinks/Week Comments Yes 2 [...] PM EDT Sexual Orientation Not on file Last Filed Vital Signs Vital Sign Reading Time Taken Comments Blood Pressure 162/82 09/24/2024 9:32 AM EDT Pulse 60 09/24/2024 9:32 AM EDT Temperature 36.3 C (97.4 F) 09/24/2024 9:18 AM EDT Respiratory Rate 18 09/24/2024 9:18 AM EDT Oxygen Saturation 85% 09/24/2024 9:32 AM EDT Inhaled Oxygen Concentration - - Weight 61.1 kg (134 lb 12.8 oz) 09/24/2024 9:13 AM EDT Height 162.6 cm (5' 4 ) 09/24/2024 9:13 AM EDT Body Mass Index 23.14 09/24/2024 9:13 AM EDT Plan of Treatment Upcoming Encounters Date Type Department Care Team (Late st Contact Info) Description 12/02/2024 3:30 PM EDT Office Visit [facility] [address] [place] [address] [place] [address] Sujit Reyes MD [address] [place], [place] [id number] 01/19/2025 1:45 PM EST Office Visit [facility] [address] [place] [address] Naveen Velasquez MD [address] [place] [address] Health Maintenance Due Date Last Done Comments DIABETIC FOOT EXAM 1961 URINE MICROALBUMIN-CREATININ E RATIO (uACR) 1961 TDAP/TD VACCINES (1 - Tdap) 1970 COLOGUARD 02/09/1996 COLON CANCER SCREENING 5 YEA R SIGMOIDOSCOPY 02/09/1996 CT COLONOGRAPHY 02/09/1996 FIT Testing (1 year) 02/09/1996 COVID-19 Vaccine (3 - Pfizer risk series) 05/20/2020 04/22/2020, 03/30/2020 MAMMOGRAM 11/10/2023 11/09/2021, 04/2021, 01/25/2020, Additional history exists ANNUAL WELLNESS VISIT 01/10/2024 01/09/2023 , 04/03/2021, 09/06/2020 LIPID PANEL 07/06/2024 07/07/2023, 06/09, 05/22/2022, Additional history exists INFLUENZA VACCINE 12/08/2024 11/27/2023, , 01/28/2022, Additional history exists DXA SCAN 01/10/2025 01/10/2023, 05/2022, 11/08/2020, Additional history exists FECAL OCCULT BLOOD TEST 02/11/2025 02/12/2024 HEMOGLOBIN A1C 02/13/2025 08/14/2024, 09/2024, 05/24/2024, Additional history exists DIABETIC EYE EXAM 03/23/2025 03/23/2024, , 05/01/2022, Additional history exists COLONOSCOPY 10/17/2030 10/17/2020 COLORECTAL CANCER SCREENING 10/17/2030 ZOSTER VACCINE Completed 01/24/2019, 01/08, 06/11/2018 Pneumococcal Vaccine 50+ Completed 020, 08/06/2019, 06/11/2018, Additional history exists HEPATITIS C SCREENING Completed 01/29/2024 , 09/18/2022, 08/25/2022, Additional history exists Medical Devices Implanted Type Area House Registry Rn Device Identifier Shelf Expiration Date Model / Serial / Lot Ld Pm Tendril Sts 6f52cm [id number] - [id number] - [id number] Implanted:Qty: 1 on 08/24/2018 by Naveen Velasquez MD at [facility] Lead [employer] 07/07/[id number] / [id number] / [id number] Ld Pm Tendril Sts 6f46cm [id number] - [id number] - [id number] Implanted:Qty: 1 on 08/24/2018 by Naveen Velasquez MD at [facility] [employer] 04/09/[id number] / [id number] / [id number] Gen Pm Assurity Mri Dr Ortez [id number] - [id number] - [id number] Implanted:Qty: 1 on 08/24/2018 by Naveen Velasquez MD at 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 without ME POCT PROTIME - INR Routine 08/27/2024 2: 16 PM EDT REMOTE DEVICE CHECK 08/24/2024 5 :09 PM EDT PROTIME-INR Routine 08/10/2024 PROTIME-INR Routine 08/03/2024 ECG 12-LEAD Routine 07/28/2024 Atrial fibrillation, persistent Complete heart block Coronary artery disease involving buckland coronary artery of buckland heart without angina pectoris Chronic diastolic congestive heart failure PROTIME-INR Routine 07/27/2024 OCCULT BLOOD X 1, STOOL Urgent 02/12/2024 12:11 PM EST SCANNED - COLONOSCOPY 10/17/2020 HEMOGLOBIN A1C STAT 05/04/2020 8:41 AM EST LIPID PANEL STAT 05/04/2020 8:41 AM EST from Last 3 Months or Most Recently Relevant to Health Maintenance Results * (ABNORMAL) Protime-INR (09/24/2024 9:30 AM EDT) Only the most recent of7 resultswithin the time period is included. Protime 20.5(H) 12.2 - 15.3 Seconds 09/24/2024 10:01 AM EDT [facility] INR 1.64(H) 0.89 - 1.12 09/24/2024 10:01 AM EDT [facility] Blood Line / Unknown 09/24/2024 9: 30 AM EDT 09/24/2024 9:33 AM EDT Doron Nieves MD LAB BLOOD ORDERABLES Final Re sult Performing Organization Address [facility]/ZIP Co de Phone Number [facility]
[address] [place] [address], * (ABNORMAL) POC Protime / INR (09/22/2024 11:47 AM EDT) Only the most recent of2 resultswithin the time period is included. Protime 24.2(H) 10.0 - 13.8 seconds 09/22/2024 11:49 AM EDT [facility] INR 2.0(H) 0.91 - 1.09 09/22/2024 11:49 AM EDT [facility] Blood 09/22/2024 11:4 7 AM EDT 09/22/2024 11:49 AM EDT LUIS Dimas POINT OF CARE TEST ORDERAB LES Final Result Performing Organization Address [facility]/ZIP Co de Phone Number [facility]
[address] [place] [address], * (ABNORMAL) CBC (No Diff) (09/21/2024 9:55 AM EDT) WBC 5.92 3.40 - 10.80 10*3/mm3 09/21/2024 10:36 AM EDT [facility] RBC 3.52(L) 3.77 - 5.28 10*6/mm3 09/21/2024 10:36 AM EDT [facility] Hemoglobin 10.2(L) 12.0 - 15.9 g/dL 09/21/2024 10:36 AM EDT [facility] Hematocrit 33.3(L) 34.0 - 46.6 % 09/21/2024 10:36 AM EDT [facility] MCV 94.6 79.0 - 97.0 fL 09/21/2024 10:36 AM EDT [facility] MCH 29.0 26.6 - 33.0 pg 09/21/2024 10:36 AM EDT [facility] MCHC 30.6(L) 31.5 - 35.7 g/dL 09/21/2024 10:36 AM EDT [facility] RDW 15.8(H) 12.3 - 15.4 % 09/21/2024 10:36 AM EDT [facility] RDW-SD 53.3 37.0 - 54.0 fl 09/21/2024 10:36 AM EDT [facility] MPV 9.6 6.0 - 12.0 fL 09/21/2024 10:36 AM EDT [facility] Platelets 384 140 - 450 10*3/mm3 09/21/2024 10:36 AM EDT [facility] Blood Line / Unknown 09/21/2024 9: 55 AM EDT 09/21/2024 10:29 AM EDT Peg Nails PA-C LAB BLOOD ORDERABLES Final Result [facility]
[address] [place] [address], * (ABNORMAL) Basic Metabolic Panel (09/21/2024 9:55 AM EDT) Glucose 209(H) 65 - 99 mg/dL 09/21/2024 11:17 AM EDT [facility] BUN 19.8 8.0 - 23.0 mg/dL 09/21/2024 11:17 AM EDT [facility] Creatinine 1.05(H) 0.57 - 1.00 mg/dL 09/21/2024 11:17 AM EDT [facility] Sodium 133(L) 136 - 145 mmol/L 09/21/2024 11:17 AM EDT [facility] Potassium 5.0 3.5 - 5.2 mmol/L 09/21/2024 11:17 AM EDT [facility] Chloride 91(L) 98 - 107 mmol/L 09/21/2024 11:17 AM EDT [facility] CO2 27.6 22.0 - 29.0 mmol/L 09/21/2024 11:17 AM EDT [facility] Calcium 9.0 8.6 - 10.5 mg/dL 09/21/2024 11:17 AM EDT [facility] BUN/Creatinine Ratio 18.9 7.0 - 25.0 09/21/2024 11:17 AM EDT [facility] Anion Gap 14.4 5.0 - 15.0 mmol/L 09/21/2024 11:17 AM EDT [facility] eGFR 56.2(L) >60.0 mL/min/1.7 3 09/21/2024 11:17 AM T [facility] Blood Line / Unknown 09/21/2024 9: 55 AM EDT 09/21/2024 10:29 AM EDT [facility] - 09/21/2024 11:17 AM EDT GFR Categories in Chronic Kidney Disease (CKD) GFR Category GFR (mL/min/1.73) Interpretation G1 90 or greater Normal or high (1) G2 60-89 Mild decrease (1) G3a 45-59 Mild to moderate decrease G3b 30-44 Moderate to severe decrease G4 15-29 Severe decrease G5 14 or less Kidney failure (1)In the absence of evidence of kidney disease, neither GFR category G1 or G2 fulfill the criteria for CKD. eGFR calculation 2020 CKD-EPI creatinine equation, which does not include race as a factor us Peg Nails PA-C LAB BLOOD ORDERABLES Final Result [facility]
[address] [place] [address], * ECG Scan (08/31/2024) Only the most recent of2 resultswithin the time period is included. us Naveen Velasquez MD ECG ORDERABLES Final Result * Remote Device Check (08/24/2024 5:09 PM EDT) Date Time Interrogation Session [id number] [facility] Type Interrogation Session Remote Scheduled [facility] Implantable Pulse Generator House Registry Rn [facility] Implantable Pulse Generator Type IPG [facility] Implantable Pulse Generator Model 2272 Assurity MRI(TM) [facility] Implantable Pulse Generator Serial Number [id number] [facility] Implantable Pulse Generator Implant Date [id number] [facility] Battery Remaining Percentage 39.00 % [facility] Battery Remaining Longevity 44.0 mo [facility] Battery Voltage 2.960 [facility] Battery ARCH SUPPORT MAKER Trigger 2.600 [facility] Battery Status Middle of Service [facility] Americo Statistic RA Percent Paced 1.00 [facility] Americo Statistic RV Percent Paced 99.00 [facility] Atrial Tachy Statistic AT/AF [place] Percent 99.00 [facility] Lead Channel RA Sensing Intrinsic Amplitude 3.100 [facility] Lead Channel Setting RA Sensing Sensitivity 0.50 [facility] [employer] RA Impedance Value 430 [facility] Lead Channel Setting RA Pacing Amplitude 2.000 [facility] Lead Channel Setting RA Pacing Pulse Width 0.6 [facility] Lead [employer] RV Sensing Intrinsic Amplitude 12.000 [facility] Lead Channel Setting RV Sensing Sensitivity 2.00 [facility] [facility] Lead Channel RV Impedance Value 480 [facility] Lead Channel Setting RV Pacing Amplitude 2.000 [facility] Lead Channel Setting RV Pacing Pulse Width 0.5 [facility] [place] Setting Mode (NBG Code) DDDR [facility] [place] Setting Lower Rate Limit 60 [facility] [place] Setting AT Mode Switch Rate 160 [facility] [place] Setting Maximum Tracking Rate 125 [facility] [place] Setting Maximum Sensor Rate 115 [facility] [place] Setting PAV Delay 180 [facility] [place] Setting IZZY Delay 150 [facility] Lead Channel Setting RA Sensing Polarity Bipolar [facility] Lead Channel Setting RV Sensing Polarity Bipolar [facility] Lead Channel Setting RA Pacing Polarity Bipolar [facility] Lead Channel Setting RV Pacing Polarity Bipolar [facility] Lead Channel RA Pacing Threshold Polarity Bipolar [facility] Lead Channel RV Pacing Threshold Polarity Bipolar [facility] 08/24/2024 5:09 PM EDT us Naveen Velasquez MD CV IMPLANTABLE CARDIAC DEVIC E Final Result [facility] * ECG 12-LEAD (07/28/2024) Narrative 07/28/2024 Naveen Velasquez MD 07/28/2024 4:00 PM ECG 12 Lead Date/Time: 07/28/2024 3:53 PM Performed by: Naveen Velasquez MD Authorized by: Naveen Velasquez MD Comparison: compared with previous ECG from 02/17/2024 Comparison to previous ECG: Now in atrial flutter/atrial fibrillation. Rhythm: atrial fibrillation and paced BPM: 60 Procedure Note Naveen Velasquez MD - 07/28/2024 11:45 AM EDT Michelle Felipe 1950 07/28/2024 [facility] Referring Provider: No ref. provider found Alisa Kunz, [address] [place], [place] [id number] Chief Complaint Patient presents with PAF (paroxysmal atrial fibrillation) Problem List: Ischemic heart disease: CABG, Dr. Timur Lopez, July 1999 (SHEEHAN to distal LAD,SVG to firstdiagonal, SVG to second diagonal, SHAR Warren metal stenting of the ostiumof the SVG to second diagonal, Rotational atherectomy/PTCA of RCA and SVGto second diagonal in-stent. PTCRA/stenting of proximal RCA in-stent restenosis and rotationalatherectomy/PTCA of SVG to second diagonal. Brachy therapy for in-stent restenosis of proximal dominant RCA,04/16/2001, LVEF (65%). [facility]: Dr. Thakkar for acute ME, 01/10/2007: Normal LV function andwall motion, Patent SVG to second diagonal, Patent SHEEHAN graft to LAD, 50%ostial stenosis of SVG to first diagonal, JANA Taxus stenting of mid RCAstenosis. Mild reversible anteroischemia - Cardiac SPECT (scan date ?), LVEF(77%). [facility], May 2011, [facility], reportedly revealed no disease (datadeficit) in setting of diabetic ketoacidosis associated with acuterespiratory failure requiring mechanical ventilation x 5 days. Echocardiogram 04/12/16: LVEF 70%, mild MR, AV sclerosis Myocardial perfusion study 02/17/2017: Wnl, EF 70% Echo, 05/18/21, EF 60%, Mild MS [facility] PTCA RCA ISR: Patent Grafts. 04/30 Echo 11/27/2023: EF 55-60%no pericardial effusion, apical wall akinetic,Right Ventricle: The right ventricle is normal in size. The right ventricular systolic function is normal. Right ventricular systolic pressure is mildly elevated (35-50mmHg), Intravenous injection of agitatedsaline demonstrate late appearance of bubbles in the left heart consistent with intrapulmonary shunting. MildAR, mild MR, mild TR Echocardiogram 07/15/2024 LVEF normal at 60%. Mild to moderate AI. MildMS. Hypertension. Bradycardia/multiple syncopal episodes August 2018 with and withoutprodrome 08/26 3rd degree AV block SJ PPM - GFT CVA 04/27 [facility], outpt monitor demonstrated Afib 40% carotid plaque withsubjective work-up negative for seizures-data deficit, discharged onEliquis and Plavix Dyslipidemia. Paroxysmal atrial fibrillation, anticoagulated with Eliquis, CHADVasc 7 Obstructive sleep apnea: BiPAP mask tolerable. Current CPAP use. 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 Depression. Hypothyroidism: On chronic Synthroid replacement. Dyspepsia. B12 deficiency anemia. Remote hepatitis. Osteoarthritis. Fibromyalgia. Right lower extremity incision cellulitis, resolved. Right shoulder adhesive capsulitis. Charcot joint fracture of left foot requiring booting. Past surgical history: Bilateral laser surgery for diabetic retinopathy. Unknown left eye surgery. Tonsillectomy. section x2. Lower back surgery for lumbar disc disease. Right carpal tunnel release. Laparotomy for adhesions, remote. Allergies Allergies Allergen Reactions Lipitor [Atorvastatin] Myalgia Morphine And Codeine Hallucinations Rosuvastatin Unknown - Low Severity Azathioprine Unknown (See Comments) Keflex [Cephalexin] Rash Penicillins Rash Pravachol [Pravastatin] Other (See Comments) Doesn't remember this rxn-from 3 yrs ago Tetracyclines & Related Rash Current Medications Current Outpatient Medications: acetaminophen (TYLENOL) 500 MG tablet, Take 2 tablets by mouth Every 6(Six) Hours As Needed., Disp: , Rfl: amLODIPine (NORVASC) 5 MG tablet, Take 1 tablet by mouth Daily., Disp:30 tablet, Rfl: 5 aspirin 81 MG EC tablet, Take 1 tablet by mouth Every Night., Disp: ,Rfl: brimonidine (ALPHAGAN) 0.2 % ophthalmic solution, Apply 1 drop to eye(s)as directed by provider., Disp: , Rfl: busPIRone (BUSPAR) 10 MG tablet, Take 1 tablet by mouth 2 (Two) Times aDay., Disp: , Rfl: Calcium Citrate-Vitamin D (CALCIUM + D PO), Take 1 tablet by mouthDaily., Disp: , Rfl: cetirizine (zyrTEC) 10 MG tablet, Take 1 tablet by mouth Daily., Disp: ,Rfl: DULoxetine (CYMBALTA) 20 MG capsule, Take 1 capsule by mouth Daily.,Disp: , Rfl: DULoxetine (CYMBALTA) 60 MG capsule, Take 1 capsule by mouth Daily. 60mgand 20mg in the morning, Disp: , Rfl: ezetimibe (ZETIA) 10 MG tablet, Take 1 tablet by mouth Daily., Disp: 90tablet, Rfl: 3 folic acid (FOLVITE) 1 MG tablet, Take 1 tablet by mouth Daily., Disp: ,Rfl: furosemide (LASIX) 20 MG tablet, Take 1 tablet by mouth As Needed (takefor edema, increase in weight 3 lbs.)., Disp: 90 tablet, Rfl: 3 gabapentin (NEURONTIN) 100 MG capsule, Take 9 capsules by mouth EveryNight., Disp: , Rfl: glucagon (GLUCAGEN) 1 MG injection, Inject 1 mg under the skin into theappropriate area as directed., Disp: , Rfl: glucose (DEX4) 4 GM chewable tablet, Chew 4 tablets., Disp: , Rfl: hydroxychloroquine (PLAQUENIL) 200 MG tablet, Take 1 tablet by mouthDaily., Disp: , Rfl: Insulin Glargine (TOUJEO SOLOSTAR SC), Inject 23 Units under the skininto the appropriate area as directed Every Night., Disp: , Rfl: Insulin Lispro (humaLOG) 100 UNIT/ML injection, Inject 3 Units under theskin into the appropriate area as directed 3 (Three) Times a Day BeforeMeals., Disp: , Rfl: Ketostix strip, , Disp: , Rfl: latanoprost (XALATAN) 0.005 % ophthalmic solution, Administer 1 drop toboth eyes Every Night., Disp: , Rfl: 6 levothyroxine (SYNTHROID, LEVOTHROID) 125 MCG tablet, Take 1 tablet bymouth Daily., Disp: , Rfl: methocarbamol (ROBAXIN) 500 MG tablet, , Disp: , Rfl: metoprolol succinate XL (TOPROL-XL) 25 MG 24 hr tablet, Take 1 tablet bymouth Daily., Disp: 90 tablet, Rfl: 3 mycophenolate (CELLCEPT) 500 MG tablet, Take 3 tablets by mouth., Disp:, Rfl: nitroglycerin (NITROSTAT) 0.3 MG SL tablet, 1 under the tongue as neededfor angina, may repeat q5mins for up three doses, Disp: 25 tablet, Rfl:1 pitavastatin calcium (LIVALO) 2 MG tablet tablet, Take 1 tablet by mouthEvery Night., Disp: , Rfl: spironolactone (ALDACTONE) 25 MG tablet, Take 6.25 mg by mouth Daily.,Disp: , Rfl: Trelegy Ellipta 200-62.5-25 MCG/INH inhaler, Inhale 2 puffs Daily.,Disp: , Rfl: Urine Glucose-Ketones Test (Keto-Diastix) strip, Use daily as needed perendocrinology, Disp: , Rfl: warfarin (COUMADIN) 5 MG tablet, TAKE 1/2 TO 1 TABLET ONCE A DAY OR ASDIRECTED, Disp: 30 tablet, Rfl: 2 azithromycin (ZITHROMAX) 250 MG tablet, Take 1 tablet by mouth Daily.(Patient not taking: Reported on 07/28/2024), Disp: , Rfl: clindamycin 1 % gel, , Disp: , Rfl: clobetasol propionate (TEMOVATE) 0.05 % cream, , Disp: , Rfl: fluocinonide (LIDEX) 0.05 % gel, , Disp: , Rfl: mupirocin (BACTROBAN) 2 % ointment, Apply 1 Application topically to theappropriate area as directed. (Patient not taking: Reported on 07/28/2024),Disp: , Rfl: History of Present Illness Pt presents for follow up of sick sinus syndrome/atrialfibrillation/hypertension/CVA/CAD. Since we last saw the pt, pt has beenhospitalized on multiple occasions at for worsening shortness ofbreath and apparent recurrent right-sided pleural effusion. She statesshe has undergone multiple thoracocentesis with recurrence. During thistime she has had increasing oxygen requirements now at 3 L nasal cannula.She feels fatigued and short of breath with weakness. She denies anytachypalpitations. She does not notice she has been in atrialfibrillation. She has been compliant with her anticoagulation withwarfarin. Vitals: 07/28/24 1311 BP: 100/52 BP Location: Left arm Patient Position: Sitting Pulse: 61 SpO2: (!) 88% Weight: 61.2 kg (135 lb) Height: 162.6 cm (64 ) Body mass index is 23.17 kg/m . PE: General: NAD Neck: no JVD, no carotid bruits, no TM Heart RRR, NL S1, S2, no murmurs appreciated. Lungs: Decreased creased breath sounds right greater than left. Ext: No musculoskeletal deformities, no edema, cyanosis, or clubbing Psych: normal mood and affect Diagnostic Data: DDDPM fxn device interrogation today [employer] pacemaker DDDR a paced 1%.Patient is dependent RV paced 99%. Normal thresholds impedance. Bettervoltage 4 years remaining. 5% atrial fibrillation. ECG 12 Lead Date/Time: 07/28/2024 3:53 PM Performed by: Naveen Velasquez MD Authorized by: Naveen Velasquez MD Comparison: compared with previousECG from 02/17/2024 Comparison to previous ECG: Now in atrial flutter/atrial fibrillation. Rhythm: atrial fibrillation and paced BPM: 60 1. Atrial fibrillation, persistent 2. Complete heart block 3. Coronary artery disease involving buckland coronary artery of nativeheart without angina pectoris 4. Chronic diastolic congestive heart failure Plan: 1. PAF: Now persistent. Long discussion with the patient and her husbandtoday. The patient is rate control due to her complete heart block. I amunsure whether or not the atrial arrhythmias may be worsening herrecurrent pleural effusions and worsening shortness of breath. Offeredher Tikosyn although she has a major contraindication while being onPlaquenil. No other options regarding antiarrhythmic therapy due to herhistory of CAD as well as COPD. Can attempt external cardioversion andsee how she feels. 2. CHB: PPM implant-Normal interrogation. 3 years on battery. 3. CAD: Remote CABG, CBI 2020 ISR RCA. Patent grafts. Normal EF, Mild MS 4. [facility] - follows with Dr. Reyes. 5. Pleural Effusions: lupus related, follows with pulmonology at , s/pthoracentesis and pleurodesis see #1 F/up in 6 months Naveen Velasquez MD ECG ORDERABLES Final Result * Occult Blood X 1, Stool - Stool, Per Rectum (02/12/2024 12:11 PM EST) Fecal Occult Blood Negative Negative DISK DIFFUSION 02/12/2024 1:13 PM EST [facility] Stool Specimen from rectum / Unknown Collection / Unknown 02/12/2024 12:11 PM EST 02/12/2024 12:31 PM EST Shannen Foy APRN BODY FLUIDS AND STOOLS ORDERABLES Final Result [facility]
[address] [place] [address], * SCANNED - COLONOSCOPY (10/17/2020) Sujit Christine MD CHART REVIEW TABS Lee Ann l Result * (ABNORMAL) Lipid Panel (05/04/2020 8:41 AM EST) Total Cholesterol 184 0 - 200 mg/dL 05/04/2020 9:34 AM EST [facility] Triglycerides 133 0 - 150 mg/dL 05/04/2020 9:34 AM EST [facility] HDL Cholesterol 55 40 - 60 mg/dL 05/04/2020 9:34 AM EST [facility] LDL Cholesterol 106(H) 0 - 100 mg/dL 05/04/2020 9:34 AM EST [facility] VLDL Cholesterol 23 5 - 40 mg/dL 05/04/2020 9:34 AM EST [facility] LDL/HDL Ratio 1.86 05/04/2020 9:34 AM EST [facility] Blood Line / Unknown 05/04/2020 8: 41 AM EST 05/04/2020 8:55 AM EST [facility] - 05/04/2020 9:34 AM EST Cholesterol Reference Ranges (U.S. Department of Health and Human Services ATP III Classifications) Desirable <200 mg/dL Borderline High 200-239 mg/dL High Risk >240 mg/dL Triglyceride Reference Ranges (U.S. Department of Health and Human Services ATP III Classifications) Normal <150 mg/dL Borderline High 150-199 mg/dL High 200-499 mg/dL Very High >500 mg/dL HDL Reference Ranges (U.S. Department of Health and Human Services ATP III Classifcations) Low <40 mg/dl (major risk factor for CHD) High >60 mg/dl ('negative' risk factor for CHD) LDL Reference Ranges (U.S. Department of Health and Human Services ATP III Classifcations) Optimal <100 mg/dL Near Optimal 100-129 mg/dL Borderline High 130-159 mg/dL High 160-189 mg/dL Very High >189 mg/dL Nelsy Phelps APRN LAB BLOOD ORDERABLES Lee Ann l Result [facility]
[address] [id number], from Last 3 Months or Most Recently Relevant to Health Maintenance Insurance Advance Directives * CPR (Attempt to Resuscitate) (Latest Code Status on File) Date Activated Date Inactivated Comments 02/12/2024 2:28 AM 02/16/2024 4:46 PM Question Answer Comments Code Status (Patient has no pulse and is not breathing): CPR (Attempt to Resuscitate) Medical Interventions (Patie nt has pulse or is breathing): Full Support Level Of Support Discussed With: Patient * CPR (Attempt to Resuscitate) Date Activated Date Inactivated Comments 08/16/2018 12:42 AM 08/25/2018 2:57 PM Question Answer Comments Code Status (Patient has no pulse and is not breathing): CPR (Attempt to Resuscitate) Medical Interventions (Patie nt has pulse or is breathing): Full Level Of Support Discussed With: Patient Care Teams Forest Fire Warden Relationship Specialty Start Date End Date Alisa Kunz DO [address] [place] [address] PCP - General Internal Medicine 04/26/21
--- OUTSIDE RECORDS SUMMARY | 2024-10-04 10:37 | XMS_ITS | Encounter Summary ---
Author Organization [facility] ystem Address [address] [place] [address] Care Team Providers Care Grain Elevator Superintendent Name Role Phone Alisa Knuz Primary Care Provider [phone]- [phone] Encounter Details Date Type Department Care Team (Latest Contact Info) Description 09/28/2024 Anticoagulation Visit [facility] [address] [facility] [address] [place] [address] Yancy Viveros, Automatic Brine Mixer Operator Left ventricular apical thrombus (Primary Dx) Social [...] this encounter Progress Notes * Yancy Viveros, Automatic Brine Mixer Operator - 09/28/2024 3:37 PM EDT [facility] Progress Note Patient Demographics Method of INR reporting: Th[employer] Solo Home Monitor SN [id number] Estimated OOP Cost: Indication: Left Ventricular Atypical Thrombus (~2012) Referring Provider Nanette Pryor APRN Reason patient is not on a DOAC: Goal INR: 2-3 Warfarin Start Date ~02/12/24 Reason patient is not on home monitor: [id number]: Planned Duration of Therapy Indefinite Relevant medical [...] 05/31 06/07 4/8 4/9 06/22 07/27 08/03 608/27 Total Weekly Dose 25 mg 35 mg 32.5 mg 32.5 mg 32.5 mg 32.5 mg 30 mg 32.5 mg Admission 32.5 mg 37.5 mg 32.5 mg INR 1.9 1.6 4.1/3.6 8</8< 2.3 2.6 2.7 3.8 3.2 1.9 - HM 1.4 - Clinic 1.32 - DECAY CONTROL OPERATOR 2.8 2.0 Notes Admitted [facility] Rec'd 05/27 HM 1-BILL TODAY HM 2- no leonid; In clinic HM 3 - no bill HM 4 - no bill HM 1- BILL TODAY HM 2 - no bill Rec'd 08/11 HM 3 - no bill HM 4- no bill Rec'd 09/02 In clinic Date 09/27 Total Weekly Dose 32.5 mg INR 1.6 Notes Rec'd 09/28 Patient Contact Information Verbal release: Signed 03/05/24 Preferred contact number: [phone] Alternative contact number(s): [phone] (Doron) [phone] (Ruthie) [phone] (Madyson) Patient Appropriate for WarfNoCall ? No Preferred contact name: Michelle Felipe Alternative contact name(s): Doron Felipe () Ruthie Chong (Daughter) Madyson Hernandes (Daughter) Preferred contact relation: Self Lab contact information (if applicable): Subjective Findings Drug Interactions Dietary Findings Historical: duloxetine, levothyroxine, ezetimibe, furosemide Historical GLV intake (date updated): broccoli/cabbage every now and then, not much other GLV New (including OTC): None GLV changes this encounter: None Alcohol and Tobacco Historical: 2 beers or 1 cocktail per evening, no tobacco New: None Patient Findings Negatives: Signs/symptoms of thrombosis, Signs/symptoms of bleeding, Laboratory test error suspected, Change in health, Change in alcohol use, Change in activity, Upcoming invasive procedure, Emergency department visit, Upcoming dental procedure, Missed doses, Extra doses, Change in medications, Change in diet/appetite, Hospital admission, Bruising, Other complaints Comments: Patient is anxious as she wants to undergo a cardioversion, but she is unable to have procedure until her INR is at least 2.0. All other findings negative per patient. Assessment and Plan: INR was subtherapeutic yesterday at 1.6 (2.0-3.0). Per Reema Beal, PharmD instructed patient to increase weekly dose to warfarin 5 mg daily until recheck. Recheck INR in 1 week, 10/04. Patient prefers testing Tuesdays. Verbal and written information provided. Michelle Felipe expresses understanding by teach back and has no further questions at this time. Yancy Viveros CPhT, [facility] 15:46 EDT 09/28/2024 IReema, PharmD, have reviewed the note in full and agree with the assessment and plan. 09/28/24 15:55 EDT documented in this encounter Plan of Treatment Upcoming Encounters Date Type Department Care Team (Late st Contact Info) Description 12/02/2024 3:30 PM EDT Office Visit [facility] [address] [place] [address] [place] [phone] Sujit Reyes MD [address] [facility] [address] [place], [place] [id number] 01/19/2025 1:45 PM EST Office Visit [facility] [address] [facility] [address] [place] [address] Naveen Velasquez MD [address] [facility] [address] [place] [address] documented as of this encounter Visit Diagnoses Diagnosis Left ventricular apical thrombus- Primary documented in this encounter Care Teams Grain Elevator Superintendent Relationship Specialty Start Date End Date Alisa Kunz DO [address] [place] [address] PCP - General Internal Medicine 04/26/21 documented as of this encounter
--- OUTSIDE RECORDS SUMMARY | 2024-10-04 10:37 | XMS_ITS | Encounter Summary ---
Author Organization [facility] ystem Address [address] [place] [address] Care Team Providers Care Orthotist/Prosthetist Name Role Phone Alisa Kunz Primary Care Provider [phone]- [phone] Encounter Details Date Type Department Care Team (Latest Contact Info) Description 09/24/2024 Travel Social History Tobacco Use Types Packs/Day [...] on file documented as of this encounter Functional Status * Question Answer [...] 9:45 AM EDT Tanya Boyce RN * [place] Suicide Severity Rating Scale (Screener/Recent Self-Report) Question Answer Date of Assessment Author 6. Suicidal Behavior (Lifetime) No 09/24/2024 9:45 AM EDT Cassandra Parisi RN documented as of this encounter Plan of Treatment Upcoming Encounters Date Type Department Care Team (Late st Contact Info) Description 12/02/2024 3:30 PM EDT Office Visit [facility] [address] [facility] [place] [address] [place] [address] Sujit Reyes MD [address] [facility] [address] [place] [address] 01/19/2025 1:45 PM EST Office Visit [facility] [address] [facility] [address] [place] [address] Naveen Velasquez MD [address] [facility] [address] [place] [address] documented as of this encounter Visit Diagnoses Not on filedocumented in this encounter Care Teams Orthotist/Prosthetist Relationship Specialty Start Date End Date Alisa Kunz DO [address] [place] [address] PCP - General Internal Medicine 04/26/21 documented as of this encounter
--- OUTSIDE RECORDS SUMMARY | 2024-10-04 10:37 | XMS_ITS | Encounter Summary ---
Author Organization [facility] Address [address] [place] [address] Care Team Providers Care Assembler Product Name Role Phone Alisa Kunz DO Primary Care Provider [phone] Laura Albright ATTENDANT CHILD ACTIVITY Unavailable Unavailable Balwinder Vale Unavailable Unavailable Kodi uBstos DO Unavailable [phone] Sujit Arriola MD Unavailable [phone] HatLaura navas LPN Unavailable Unavailable Sujit Reyes MD Unavailable [phone] Zully Caldwell LPN Unavailable Unavailable HatLaura navas LPN Unavailable Unavailable HatLaura navas LPN Unavailable Unavailable Tanya oPwell Unavailable [phone] Sarah Reyes ATTENDANT CHILD ACTIVITY Unavailable Unavailable Ekaterina Gómez Unavailable Unavailable Zully Caldwell ATTENDANT CHILD ACTIVITY Unavailable Unavailable Ekaterina Gómez Unavailable Unavailable Patricia Yañez ATTENDANT CHILD ACTIVITY Unavailable Unavailab Zee Lr DO Unavailable [phone] Reason for Visit * Reason Comments Med Refill Encounter Details Date Type Department Care Team (Late st Contact Info) Description 12/10/2021 Refill [facility] Internal Medicine [address], [address] [place] [address] Alisa Kunz DO [address] [place] [address] Social History Tobacco Use Types [...] encounter Miscellaneous Notes * Telephone Encounter - lAisa Kunz DO - 12/11/2021 4:58 PM EDT PDMP reviewed and appropriate. Refilled. documented in this encounter Plan of Treatment Upcoming Encounters Date Type Department Care Team (Late st Contact Info) Description 10/07/2024 12:50 PM EDT Office Visit [facility] Otolaryngology [address], [address]rd [place] [address] Chris Pepe MD [address] [place] [address] 10/07/2024 4:00 PM EDT Appointment Cardiac Imaging [address] [place] [address] 10/14/2024 11:00 AM EDT Office Visit [facility] Medicine Specialties [address] 2[address] [place] [address] Cristian Zimmer MD [address] [place] [address] 10/18/2024 7:40 AM EDT Office Visit [facility] Internal Medicine [address], [address] [place] [address] Alisa Kunz, DO [address] [place] [address] 10/25/2024 10:00 AM EDT Office Visit [facility] [place] Nephrology, Bone & Mineral Metabolism [address] [facility], [address] [place] [address] Bryon Brandon MD [address] [place] [address] 10/27/2024 1:40 PM EDT Office Visit [facility] Endocrinology [address] [place] [address] Anne-Marie Kolb L, COMPUTATIONAL GENETICIST [address] [place] [address] 02/02/2025 8:40 AM EST Office Visit [facility] Internal Medicine [address] [place] [address] Alisa Kunz, DO [address] [place] [address] documented as of this encounter [...] documented as of this encounter Care Teams Assembler Product Relationship Specialty Start Date End Date Alisa Kunz DO [address] [place] [address] PCP - General Internal Medicine 03/13/21 Laura Albright LPN [employer] [place] [address] TCM Nurse 08/30/22 09/27/22 Balwinder Vale [address] [address] Community Health Worker Master At Arms 08/30/22 09/06/22 Kodi Bustos DO [address] [phone] Surgeon Cardiothoracic Surgery 11/06/22 Sujit Arriola MD [address] [place] [address] Consulting Physician Pulmonary Disease 11/06/22 Laura Albright LPN [employer] [place] [address] TCM Nurse 12/02/22 01/01/23 Sujit Reyes MD [address] [place] [address] Referring Physician 12/04/22 Zully Caldwell LPN [employer] [place] [address] TCM Nurse 02/03/23 03/05/23 Laura Albright LPN [employer] [place] [address] TCM Nurse 08/05/23 09/04/23 Laura Albright LPN [employer] [address] TCM Nurse 02/17/24 03/18/24 Tanya Powell [address] [place] [address] [address] [place] [address] Registered Nurse 04/02/24 07/01/24 Sarah Reyes LPN TCM Nurse 05/27/24 06/26/24 Ekaterina Gómez Bale Sewer Master At Arms 07/14/24 07/14/24 Zully Caldwell LPN [employer] [place] [address] TCM Nurse 07/16/24 08/15/24 Ekaterina Gómez Bale Sewer Master At Arms 08/16/24 08/16/24 Patricia Yañez LPN [facility] TCM Nurse 08/25/24 Zee Lazar DO [address] [place] [address] Resident 09/08/24 documented as of this encounter
--- OUTSIDE RECORDS SUMMARY | 2024-10-04 10:37 | XMS_ITS | Encounter Summary ---
Author Organization [facility] ystem Address [address] [place] [address] Care Team Providers Care Front Desk Specialist Name Role Phone Alisa Kunz Primary Care Provider [phone]- [phone] Encounter Details Date Type Department Care Team (Late st Contact Info) Description 09/20/2024 Telephone [facility] [address] [facility] [address] [place] [address] Marj Delgado, PharmD [address] [place] [address] Social History Tobacco Use Types Packs/Day Years [...] encounter Miscellaneous Notes * Telephone Encounter - Marj Delgado PharmD - 09/20/2024 2:19 PM EDT Rosalba from cardiology called and reported patients INR today was 2.7, patient having KENIA and cardioversion tomorrow. Will follow up with patient post procedure. Marj Delgado PharmD 09/20/2024 14:21 EDT documented in this encounter Plan of Treatment Upcoming Encounters Date Type Department Care Team (Late st Contact Info) Description 12/02/2024 3:30 PM EDT Office Visit [facility] CARDIOLOGY [address] [place] [address] [place] [address] Sujit Reyes MD [address] [place] [address] 01/19/2025 1:45 PM EST Office Visit [facility] CARDIOLOGY [address] [facility] [address] [place] [address] Naveen Velasquez MD [address] [place] [address] documented as of this encounter Visit Diagnoses Not on filedocumented in this encounter Care Teams Front Desk Specialist Relationship Specialty Start Date End Date Alisa Kunz DO [address] [facility] [address] [place] [address] PCP - General Internal Medicine 04/26/21 documented as of this encounter
--- OUTSIDE RECORDS SUMMARY | 2024-10-04 10:37 | XMS_ITS | Encounter Summary ---
Author Organization [facility] ystem Address [address] [place] [address] Care Team Providers Care Animal Trainer Name Role Phone Alisa Kunz Primary Care Provider +1- [phone] Reason for Visit * Reason Onset Date Comments - MEDICATION CONCERNS 07/06/2024 Encounter Details Date Type Department Care Team (Late st Contact Info) Description 07/06/2024 Telephone [facility] CARDIOLOGY [address] [facility] [address] [place] [address] Sujit Reyes MD [address] [facility] [address] [place] [id number] - MEDICATION CONCERNS Social History Tobacco Use Types Packs/Day Years [...] encounter Miscellaneous Notes * Telephone Encounter - Awa Rivera RegSched Rep - 07/06/2024 2:27 PM EDT PATIENT RETURNED CALL TO KRISS AND WARM TRANSFERRED TO OFFICE * Telephone Encounter - Kriss Del Rosario RN - 07/06/2024 9:57 AM EDT Spoke with pt blood pressure values since taking amlodipine 5 mg , along with BLE edema that does resolve when she elevates end of day . Does not wear compression socks . 06/30-130/71 06/27- 127/70 06/28- 112/64 06/25- 148/81 06/24-153/81 06/22-120/66 * Telephone Encounter - Vianey Donaldson RegSched Rep - 07/06/2024 9:41 AM EDT Caller: Michelle Felipe Tulio Relationship: Self Best call back number: [phone] Which medication are you concerned about: AMLODIPINE 5 MG Who prescribed you this medication: When did you start taking this medication: ABOUT 2 WEEKS AGO. What are your concerns: HEADACHES, LIGHTHEADED WHEN WALKING, CHEST PRESSURE AT TIMES. SHE THINKS SHE IS REACTING TO THE MEDICATION. THIS ALL STARTED SOON SHE STARTED TAKING IT. How long have you had these concerns: 2 WEEKS documented in this encounter Plan of Treatment Upcoming Encounters Date Type Department Care Team (Late st Contact Info) Description 12/02/2024 3:30 PM EDT Office Visit [facility] CARDIOLOGY [address] [place] [address] [place] [address] Sujit Reyes MD [address] [facility] [address] [place], [place] [address] 01/19/2025 1:45 PM EST Office Visit [facility] CARDIOLOGY [address] [facility] [address] [place] [address] Naveen Velasquez MD [address] [facility] [address] [place], [place] [address] documented as of this encounter Visit Diagnoses Not on filedocumented in this encounter Care Teams Animal Trainer Relationship Specialty Start Date End Date Alisa Kunz DO [address] [place], [place] [phone] PCP - General Internal Medicine 04/26/21 documented as of this encounter
--- OUTSIDE RECORDS SUMMARY | 2024-10-04 10:37 | XMS_ITS | Encounter Summary ---
Author Organization [facility] ystem Address [address] [place] [address] Care Team Providers Care Pipe Fittings Molder Name Role Phone Alisa Kunz Primary Care Provider +1- [phone] Encounter Details Date Type Department Care Team (Latest Contact Info) Description 09/02/2024 Anticoagulation Visit [facility] [address] [facility] [address] [place] [address] Mike Mariee, Refining Supervisor Left ventricular apical thrombus (Primary Dx) Social [...] as of this encounter Progress Notes * Mike Mariee, Refining Supervisor - 09/02/2024 8:29 AM EDT [facility] Anticoagulation Clinic Progress Note Patient Demographics Method of INR reporting: AlephD Home Monitor SN [id number] Estimated OOP Cost: Indication: Left Ventricular Atypical Thrombus (~2012) Referring Provider Nanette Pryor APRN Reason patient is not on a DOAC: Goal INR: 2-3 Warfarin Start Date ~02/12/24 Reason patient is not on home monitor: [id number]: Planned Duration of Therapy Indefinite Relevant medical [...] [facility] Admitted [facility] Date 05/25 05/31 06/07 4 4/9 06/22 07/27 08/03 608/27 Total Weekly Dose 25 mg 35 mg 32.5 mg 32.5 mg 32.5 mg 32.5 mg 30 mg 32.5 mg Admission 32.5 mg 37.5 mg INR 1.9 1.6 4.1/3.6 8</8< 2.3 2.6 2.7 3.8 3.2 1.9 - HM 1.4 - Clinic 1.32 - [facility] 2.8 Notes Admitted [facility] Rec'd 05/27 HM 1-BILL TODAY HM 2- no leonid; In clinic HM 3 - no bill HM 4 - no bill HM 1- BILL TODAY HM 2 - no bill Rec'd 08/11 HM 3 - no bill HM 4- no bill Rec'd 09/02 Patient Contact Information Verbal release: Signed 03/05/24 Preferred contact number: [phone] Alternative contact number(s): [phone] (Doron) [phone] (Ruthie) [phone] (Madyson) Patient Appropriate for WarfNoCall ? No [...] evening, no tobacco New: Patient Findings Positives: Upcoming dental procedure, Extra doses, Change in diet/appetite, Bruising Negatives: Signs/symptoms of thrombosis, Signs/symptoms of bleeding, Laboratory test error suspected, Change in health, Change in alcohol use, Change in activity, Upcoming invasive procedure, Emergency department visit, Missed doses, Change in medications, Hospital admission, Other complaints Comments: Patient states she took 5 mg Fri and 7.5 mg Tue this past week. Patient states bruising was more significant this past week on her arms and that the bruises were about the size of a quarter. Patient states diet/appetite is not real good but has been about the same. Patient jasper a dentalcleaning yesterday 09/01. All other findings negative per patient. Assessment and Plan: INR therapeutic at 2.8 (2.0-3.0). Per Reema Beal PharmD Instructed patient to resume regimen of warfarin 5 mg daily except 2.5 mg until recheck. Recheck INR Thursday 09/07. Patient prefers testing Tuesdays. Verbal and written information provided. Mcihelle Felipe expresses understanding by teach back and has no further questions at this time. Home monitor information below: Test strips on hand: 6 09/02/24 Barcode number: [id number] Test strip LOT: [id number] EXP: 03/2026 Serial number: [id number] Supplies billing code used: last 08/04/24] - Next must be on or after 09/01/24 Transfer Tube Lot number: [id number] Safety Lancets: Lot: Exp: Billing: bill must be completed every 4th encounter that falls outside of 28 days from last visit PLEASE REFER TO ANTICOAGULATION TRAINING POWERPOINT FOR BILLING. Needs to use in clinic remote appointment for encounter. Mike Mariee [facility] 09/02/2024 08:42 EDT I, Reema Beal, PharmD, have reviewed the note in full and agree with the assessment and plan. 09/02/24 09:05 EDT documented in this encounter Plan of Treatment Upcoming Encounters Date Type Department Care Team (Late st Contact Info) Description 12/02/2024 3:30 PM EDT Office Visit [facility] CARDIOLOGY [address] [place] [address] [place] [address] Sujit Reyes MD [address] [place] [address] 01/19/2025 1:45 PM EST Office Visit [facility] CARDIOLOGY [address] [place] [address] Naveen Velasquez MD [address] [place] [address] documented as of this encounter Procedures Procedure Name Priority Date/Time Associated Diagnosis Comments PROTIME-INR Routine 09/01/2024 documented in this encounter Results * Protime-INR (09/01/2024) INR 2.80 Blood 09/01/2024 Historical Provider LAB BLOOD ORDERABLES Lee Ann l Result documented in this encounter Visit Diagnoses Diagnosis Left ventricular apical thrombus- Primary documented in this encounter Care Teams Pipe Fittings Molder Relationship Specialty Start Date End Date Alisa Kunz DO [address] [place] [address] PCP - General Internal Medicine 04/26/21 documented as of this encounter
--- OUTSIDE RECORDS SUMMARY | 2024-10-04 10:37 | XMS_ITS | Encounter Summary ---
Author Organization [facility] ystem Address [address] [place] [address] Care Team Providers Care Web Architect Name Role Phone Alisa Kunz Primary Care Provider +1- [phone] Reason for Visit * Reason Onset Date Comments Results 09/28/2024 Encounter Details Date Type Department Care Team (Late st Contact Info) Description 09/28/2024 Telephone [facility] CARDIOLOGY [address] [facility] [address] [place] [address] Sujit Reyes MD [address] [facility] [address] [facility] [address] [place] [address] Results Social History Tobacco Use Types Packs/Day [...] encounter Miscellaneous Notes * Telephone Encounter - Nba Smith RegSched Rep - 09/28/2024 11:32 AM EDT Caller: Michelle Felipe Relationship: Self Best call back number: [phone] What is the best time to reach you: ANY Who are you requesting to speak with (clinical staff, provider, specific staff member): KWAN What was the call regarding: PT IS WONDERING IF WE HAVE HER INR RESULTS BACK documented in this encounter Plan of Treatment Upcoming Encounters Date Type Department Care Team (Late st Contact Info) Description 12/02/2024 3:30 PM EDT Office Visit [facility]OLOGY [address] [facility] [place] [address] Sujit Reyes MD [address] [place], [place] [address] 01/19/2025 1:45 PM EST Office Visit [facility] CARDIOLOGY [address] [place] [address] Naveen Velasquez MD [address] [place] [address] documented as of this encounter Visit Diagnoses Not on filedocumented in this encounter Care Teams Web Architect Relationship Specialty Start Date End Date Alisa Kunz DO [address] [facility] [address] [place] [phone] PCP - General Internal Medicine 04/26/21 documented as of this encounter
--- OUTSIDE RECORDS SUMMARY | 2024-10-04 10:37 | XMS_ITS | Encounter Summary ---
Author Organization [facility] ystem Address [address] [place] [address] Care Team Providers Care Mulling Machine Operator Name Role Phone Alisa Kunz Primary Care Provider +1- [phone] Encounter Details Date Type Department Care Team (Latest Contact Info) Description 09/22/2024 Travel Social History Tobacco Use Types Packs/Day [...] Description 12/02/2024 3:30 PM EDT Office Visit [facility] CARDIOLOGY [address] [place] [address] Sujit Reyes MD [address] [facility] [address] [place] [address] 01/19/2025 1:45 PM EST Office Visit [facility] CARDIOLOGY [address] [facility] [address] [place] [address] Naveen Velasquez MD [address] [facility] [address] [place] [address] documented as of this encounter Visit Diagnoses Not on filedocumented in this encounter Care Teams Mulling Machine Operator Relationship Specialty Start Date End Date Alisa Kunz DO [address] [place], [place] [phone] PCP - General Internal Medicine 04/26/21 documented as of this encounter
--- OUTSIDE RECORDS SUMMARY | 2024-10-04 10:37 | XMS_ITS | Encounter Summary ---
Author Organization [facility] ystem Address [address] [place] [address] Care Team Providers Care Electrotype Servicer Name Role Phone Alisa Kunz Primary Care Provider +1- [phone] Reason for Visit * Reason Onset Date Comments - PPW REQUEST 10/04/2024 Encounter Details Date Type Department Care Team (Late st Contact Info) Description 10/04/2024 Telephone [facility] CARDIOLOGY [address] [facility] [address] [place] [address] Sujit Reyes MD [address] [facility] [address] [facility] [address] [place] [id number] - PPW REQUEST Social History Tobacco Use Types Packs/Day Years [...] Encounter - Kriss Del Rosario RN - 10/04/2024 8:56 AM EDT Anti- Coag clinic to re send to outpt facility via provided fax number. * Telephone Encounter - Nba Smith RegSched Rep - 10/04/2024 8:39 AM EDT Caller: Michelle Felipe Motley Relationship: Self Best call back number: [phone] What form or medical record are you requesting: INR Who is requesting this form or medical record from you: PATIENT How would you like to receive the form or medical records (pick-up, mail, fax): FAX If fax, what is the fax number: [phone] Timeframe paperwork needed: THOM[place] Additional notes: ORDERS FOR INR documented in this encounter Plan of Treatment Upcoming Encounters Date Type Department Care Team (Late st Contact Info) Description 12/02/2024 3:30 PM EDT Office Visit [facility] CARDIOLOGY [address] [place] [address] Sujit Reyes MD [address] [place], [place] [address] 01/19/2025 1:45 PM EST Office Visit [facility] CARDIOLOGY [address] [facility] [address] [place] [address] Naveen Velasquez MD [address] [facility] [address] [place] [address] documented as of this encounter Visit Diagnoses Not on filedocumented in this encounter Care Teams Electrotype Servicer Relationship Specialty Start Date End Date Alisa Kunz DO [address] [facility] [address] [place], [place] [address] PCP - General Internal Medicine 04/26/21 documented as of this encounter
--- OUTSIDE RECORDS SUMMARY | 2024-10-04 10:37 | XMS_ITS | Encounter Summary ---
Author Organization [facility] ystem Address [address] [place] [address] Care Team Providers Care Supervisor Body Assembly Name Role Phone Alisa Kunz Primary Care Provider +1- [phone] Encounter Details Date Type Department Care Team (Late st Contact Info) Description 09/06/2024 Documentation [facility] CARDIOLOGY [address] [facility] [address] [place] [address] Ekaterina Rand PA [address] [facility] [address] [place] [address] Social History Tobacco Use Types Packs/Day Years [...] as of this encounter Progress Notes * Ekaterina Rand PA - 09/06/2024 2:05 PM EDT Patient called to let us know that she was admitted at [email or web address] 08/14/2024 through 08/24/2024 for acute on chronic hypoxic respiratory failure secondary to pleural effusions and diastolic heart failure. She underwent right heart catheterization demonstrating mild pulmonary hypertension. A chest tube was inserted on 08/17/2024 and she underwent pleurodesis with pulmonology IR on 08/19/2024 and removal of chest tube on 08/23/2024. She was diuresed during admission and discharged home on p.o. Lasix 40 mg daily and Aldactone 12.5 mg daily. Of note her warfarin was held for these procedures and was restarted on 08/20/2024. Patient had an EKG a few days ago which was reviewed by Dr. Velasquez and holden in atrial flutter. Discussed this with Dr. Velasquez who recommends ECV in 2 weeks once herINRs have been therapeutic. According to records her INRs have been therapeutic for the past 10 to 12 days now. We will schedule cardioversion in 2 weeks. In regards to her heart failure symptoms she should talk with Dr. Reyes and/or . Updated Problem List: Ischemic heart disease: CABG, Dr. Timur Lopez, July 1999 (SHEEHAN to distal LAD,SVG to first diagonal, SVG to second diagonal, SHAR [place] metal stenting of the ostium of the SVG to second diagonal, Rotational atherectomy/PTCA ofRCA and SVG to second diagonal in-stent. PTCRA/stenting of proximal RCA in-stent restenosis and rotational atherectomy/PTCA of SVG to seconddiagonal. Brachy therapy for in-stent restenosis of proximal dominant RCA, 04/16/2001, LVEF (65%). [facility]: Dr. Thakkar for acute IA, 01/10/2007: Normal LV function and wall motion, Patent SVG to second diagonal, Patent SHEEHAN graft to LAD, 50% ostial stenosis of SVG to first diagonal, JANA Taxus stenting of mid RCA stenosis. Mild reversible anteroischemia - Cardiac SPECT (scan date ?), LVEF (77%). [facility], May 2011, [facility], reportedly revealed no disease (data deficit) in setting of diabetic ketoacidosis associated with acute respiratory failure requiring mechanical ventilation x 5 days. Echocardiogram 04/12/16: LVEF 70%, mild MR, AV sclerosis Myocardial perfusion study 02/17/2017: Wnl, EF 70% Echo, 05/18/21, EF 60%, Mild MS [facility] PTCA RCA ISR: Patent Grafts. 04/30 Echo 11/27/2023: EF 55-60%no pericardial effusion, apical wall akinetic, Right Ventricle: The right ventricle is normal in size. The right ventricular systolic function is normal. Right ventricular systolic pressure is mildly elevated (35-50mmHg), Intravenous injection of agitated saline demonstrate late appearance of bubbles in the left heart consistent with intrapulmonary shunting. Mild AR, mild MR, mild TR Echocardiogram 07/15/2024 LVEF normal at 60%. Mild to moderate AI. Mild MS. Admission at [facility] 08/14 - 08/24/2024: For acute on chronic hypoxic respiratory failure secondary to pleural effusions/diastolic heart failure, mild pulmonary hypertension status post chest tube placement 08/17/2024 and pleurodesis with pulmonology IR 08/19/2024 with removal of chest tube 08/23/2024, diuresed, discharged home on p.o. Lasix 40 mg daily and Aldactone 12.5 mg daily patient restarted warfarin on 08/20/2024. RHC 08/18/2024 demonstrating mildly elevated right and left-sided filling pressures, mildly elevatedPA pressure (PA mean 30 mmHg) with mild pre and postcapillary pulmonary hypertension (PVR 2.91 if using Josafat cardiac output, 4.36 if using thermodilution cardiac output), normal cardiac index by Josafat, reduced cardiac index by thermodilution Echocardiogram 07/15/2024: EF 60-50 5 to 60% left atrium is dilated mild to moderate AR, severe mitral annular calcification, mild mitral stenosis, mean mitral valve pressure gradient estimated to be 4mmHg Hypertension. Bradycardia/multiple syncopal episodes August 2018 with and without prodrome 08/26 3rd degree AV block SJ PPM - GFT CVA 04/27 [facility], outpt monitor demonstrated Afib 40% carotid plaque with subjective work-up negative for seizures-data deficit, discharged on Eliquis and Plavix Dyslipidemia. Paroxysmal atrial fibrillation, anticoagulated with warfarin, CHADVasc 7 Obstructive sleep apnea: BiPAP mask tolerable. Current CPAP use. 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 [...] carpal tunnel release. Laparotomy for adhesions, remote. documented in this encounter Plan of Treatment Upcoming Encounters Date Type Department Care Team (Late st Contact Info) Description 12/02/2024 3:30 PM EDT Office Visit [facility] CARDIOLOGY [address] [facility] [place] [address] [facility] [address] [facility] [address] [place] [address] 01/19/2025 1:45 PM EST Office Visit [facility] CARDIOLOGY [address] [place] [address] Naveen Velasquez MD [address] [facility] [address] [place] [address] documented as of this encounter Visit Diagnoses Not on filedocumented in this encounter Care Teams Supervisor Body Assembly Relationship Specialty Start Date End Date Alisa Kunz DO [address] [facility] [address] [place], [place] [phone] PCP - General Internal Medicine 04/26/21 documented as of this encounter
--- OUTSIDE RECORDS SUMMARY | 2024-10-04 10:37 | XMS_ITS | Encounter Summary ---
Author Organization [facility] ystem Address [address] [place] [address] Care Team Providers Care Timber Framer Name Role Phone Alisa Kunz Primary Care Provider +1- [phone] Encounter Details Date Type Department Care Team (Late st Contact Info) Description 08/31/2024 Documentation [facility] CARDIOLOGY [address] [facility] [address] [place] [address] Naveen Velasquez MD [address] [facility] [address] [place] [address] Social History Tobacco Use Types [...] Description 12/02/2024 3:30 PM EDT Office Visit [facility] CARDIOLOGY [address] [place] [address] [place] [address] Sujit Reyes MD [address] [facility] [address] [place] [address] 01/19/2025 1:45 PM EST Office Visit [facility]Y [address] [facility] [address] [place] [address] Naveen Velasquez MD [address] [facility] [address] [place] [address] documented as of this encounter Visit Diagnoses Not on filedocumented in this encounter Care Teams Timber Framer Relationship Specialty Start Date End Date Alisa Kunz DO [address] [place], [place] [phone] PCP - General Internal Medicine 04/26/21 documented as of this encounter
--- OUTSIDE RECORDS SUMMARY | 2024-10-04 10:37 | XMS_ITS | Encounter Summary ---
Author Organization [facility] ystem Address [address] [place] [address] Care Team Providers Care Utility Driver Name Role Phone Alisa Kunz Primary Care Provider +1- [phone] Reason for Visit * Reason Onset Date Comments - CALL BACK 08/31/2024 Encounter Details Date Type Department Care Team (Late st Contact Info) Description 08/31/2024 Telephone [facility] CARDIOLOGY [address] [facility] [address] [place] [address] Naveen Velasquez MD [address] [facility] [address] [place] [phone] - CALL BACK Social History Tobacco Use Types Packs/Day Years [...] 9:45 AM EDT Tanya Boyce RN * Greene Suicide Severity Rating Scale (Screener/Recent Self-Report) Question Answer Date of Assessment Author 6. Suicidal Behavior (Lifetime) No 09/24/2024 9:45 AM EDT Cassandra Parisi RN documented as of this encounter Miscellaneous Notes * Telephone Encounter - Halima Cortes RN - 09/03/2024 9:19 AM EDT Patient would like to know your recommendations after you have reviewed her EKG? * Telephone Encounter - Halima Cortes RN - 08/31/2024 2:46 PM EDT I called to f/u with the patient. She states that from 08/27/24 to 08/31/24 that she has went from weighing 132 lbs to weighing 135 lbs. She denies edema or chest pain, but states that she is short of breath on exertion. Today her BP is 116/56, HR is 62 bpm and her oxygen saturation is 91% on 2 liters. She said that 91% is normal for her because she has COPD. She had an EKG done yesterday. It is on your desk to review. * Telephone Encounter - Mary Carranza RegSched Rep - 08/31/2024 11:46 AM EDT Caller: Michelle Felipe Relationship: Self Best call back number: [phone] What is the best time to reach you: ANYTIME Who are you requesting to speak with (clinical staff, provider, specific staff member): ANYONE What was the call regarding: PATIENT REQUESTING A CALL BACK TO DISCUSS BP REPORT, EKG RESULTS, AND WEIGHT GAIN. documented in this encounter Plan of Treatment Upcoming Encounters Date Type Department Care Team (Late st Contact Info) Description 12/02/2024 3:30 PM EDT Office Visit [facility] CARDIOLOGY [address] [place] [address] Sujit Reyes MD [address] [place], [place] [phone] 01/19/2025 1:45 PM EST Office Visit [facility] CARDIOLOGY [address] [place] [address] Naveen Velasquez MD [address] [place] [address] documented as of this encounter Visit Diagnoses Not on filedocumented in this encounter Care Teams Utility Driver Relationship Specialty Start Date End Date Alisa Kunz DO [address] [phone] PCP - General Internal Medicine 04/26/21 documented as of this encounter
--- OUTSIDE RECORDS SUMMARY | 2024-10-04 10:37 | XMS_ITS | Encounter Summary ---
Author Organization [facility] ystem Address [address] [place] [address] Care Team Providers Care Gas Engine Operator Compressors Name Role Phone Alisa Kunz Primary Care Provider +1- [phone] Encounter Details Date Type Department Care Team (Latest Contact Info) Description 06/14/2024 Anticoagulation Visit [facility] [address] [facility] [address] [place] [address] Mike Mariee, Transportation Broker Left ventricular apical thrombus (Primary Dx) Social [...] Visit [facility] CARDIOLOGY [address] [facility] [place] [address] Sujit Reyes MD [address] [facility] [address] [place] [address] 01/19/2025 1:45 PM EST Office Visit [facility] CARDIOLOGY [address] [facility] [address] [place] [address] Naveen Velasquez MD [address] [facility] [address] [place] [address] documented as of this encounter Visit Diagnoses Diagnosis Left ventricular apical thrombus- Primary documented in this encounter Care Teams Gas Engine Operator Compressors Relationship Specialty Start Date End Date Alisa Kunz DO [address] [place], [place] [phone] PCP - General Internal Medicine 04/26/21 documented as of this encounter
--- OUTSIDE RECORDS SUMMARY | 2024-10-04 10:37 | XMS_ITS | Continuity of Care Document ---
Author Organization [facility] JESUS Croft MATHER Address [address] [place] [address] Care Team Providers Care Roof Promenade Tile Setter Name Role Phone GILLES COOPER Industrial Ecologist BRUCE SIEGEL Primary Care Provider VETO MONTESINOS Windows Software Engineer Assessment No assessment recorded. Plan of Treatment Reminders Order Date Submit Date Provider Last Modified By Organization Details Last Modified Time Details Appointments FOLLOW UP [facility] 2024 03:10P M DR. HUNT Not available Not available Not available LEVEL 2 2025 01:15P M GILLES COOPER MD Not available Not available Not available Lab None recorded . Referral None recorded . Procedures None recorded . Surgeries None recorded . Imaging None recorded . Medication Orders None recorded . Patient TargetsNo targets recorded. Patient InstructionsNo instructions recorded. Reason for Referral None Reported. 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 Active 2015 From Automated Load;Provi oscar: Doron Zhu;Statu s: Active Not Available [facility] 6 03:07:23 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 Procedures Surgical History Date Name Laterality Status Provider Name and Address Organization Details Recorded Time 025 DAK - Cryo AK completed Mike Arnold [facility] 09/30/2024 13:02:38 025 OCT/Retina completed GILLES COOPER MD [address] [place] [address], [phone], [facility] 09/23/2024 15:15:57 025 thoracentesis completed Corky Powell [facility] 09/30/2024 12:49:02 025 DAK - Cryo AK completed Kayla Prince [facility] 07/05/2024 12:20:10 025 DAK - Biopsy, Tangential completed Kayla Jaimeshill [facility] 07/05/2024 12:09:54 025 OCT/Nerve completed GILLES COOPER MD [address] [place] [address] [place], [address], [facility] 03/23/2024 17:00:49 024 DAK - Cryo AK [facility] 14:05:21 024 DAK - Biopsy, Tangential completed [facility] 10/30/2023 14:09:15 024 Visual Field Extended completed GILLES COOPER MD [address] [place] [address] [place], [address], [facility] 06/16/2023 14:49:13 024 OCT/Retina completed GILLES COOPER MD [address] [place] [address], [phone], [facility] 04/16/2023 14:09:44 023 OCT/Nerve completed GILLES COOPER MD [address] [place] [address] [place], [address], [facility] 01/06/2023 09:15:48 023 OCT/Retina completed GILLES COOPER MD [address] [place] [address], [phone], [facility] 01/06/2023 09:15:41 023 biopsy of lung completed Gilles Nayak [facility] 01/06/2023 08:27:56 023 Visual Field Extended completed GILLES COOPER MD [address] [place] [address] [place], [address], [facility] 05/14/2022 14:44:47 022 OCT/Retina completed GILLES COOPER MD [address] [place] [address] [place], [address], [facility] 10/08/2021 16:44:46 022 OCT/Nerve completed GILLES COOPER MD [address] [place] [address], [address], [facility] 05/24/2021 16:40:05 022 OCT/Retina completed GILLES COOPER MD [address] [place] [address], [phone], [facility] 05/24/2021 16:40:06 021 Visual Field Extended completed GILLES COOPER MD [address] [place] [address], [address], [facility] 11/22/2020 16:17:23 021 OCT/Nerve completed GILLES COOPER MD [address] [place] [address], [phone] 08/17/2020 13:57:05 017 Cystourethroscopy [facility] 08/28/2016 14:44:58 017 Post Void Residual; Ultrasound completed Radha Herron [facility] 07/24/2016 16:36:07 Imaging Results None recorded. Procedure Notes None recorded. Medical Equipment None Reported. Allergies Allergen ID Allergen Name Allergen Category Reaction Reaction Severity Criticality Documentation Date Start Date Code Code System Note Provider Name and Address Organization Details Recorded Time 120563 morphine sulfate medicatio n Not available Not available Not available 02/01/20162012 19846 RxNorm Comme nt: Creat ed By: Trav Mitchell ed Date: 2012 3:45: 55 PM; Not Available [facility] 6 12:01:18 565464 tetracycl ine hydrochlo ride medicatio n Not available Not available Not available 02/01/20162015 87960 6 RxNorm Comme nt: Creat ed By: Muna graves Date: 2015 1:56: 37 PM; Not Available [facility] 6 12:01:18 007514 morphine sulfate medicatio n other Not available Not available 02/02/20162008 16229 RxNorm React ion: OTHER ; Comme nt: Creat ed By: Donn graves Date: 009 10:16 :46 AM; Not Available [facility] 6 08:25:26 891147 Keflex medicatio n Not available Not available Not available 08/16/2019 7 RxNorm Nilam Jett [facility] 0 14:21:12 761428 Product containin g penicilli n (product) medicatio n rash Not available Not available 05/24/2021 77304 8001 SNOMED Davdi Maribel Lyly alisa [facility] 2 15:50:09 849004 Crestor medicatio n Not available Not available Not available 10/08/2021 74081 4 RxNorm Yamel Wild [facility] 2 15:39:18 891529 rosuvasta tin medicatio n Not available Not available Not available 10/08/2021 36188 2 RxNorm Yamel Wild [facility] 2 15:39:36 Medications Name Sig Start Date [...] 0 Not Available Not Available Not Available Toujose Max U-300 SoloStar active Not Available Not Available Not Available aspirin 81 mg capsule Take 1 capsule every day by oral route. active Not Available Not Available No t Available Vitals None Recorded Social History Question Answer Notes LastModified by Organizat ion Details LastModified Time Tobacco Smoking Status Never Smoker Esperanza medina, [facility] 06/26/2016 15:31:37 How Much Tobacco Do You Chew? None [email or web address] Information not available 09/30/2016 What Was The Date Of Your Most Recent Tobacco Screening? 12/29/2023 [email or web address] Information not available 12/29/2023 Has Tobacco Cessation Counseling Been Provided? No [email or web address] Information not available 09/30/2016 Sex: Female Functional Status Question Answer Note LastModified by Organization D etails LastModified Time What is your level of alcohol consumption? Moderate [email or web address] Information not available 09/30/2016 Mental Status None recorded. Family History Relationship Description Onset Age of this Age Resolved Age Notes LastModified by Organization Details LastModified Time Father Arthritis Not avail able 09/30/2016 13:26:28 Notes:1. Heart disease MOTHE R and grandparents 2. Hypertension mother 3. Acute myocardial infarction gfth 4. Stroke syndrome mth 5. Droopy Eyelid gmth Medical History Condition Response Emphysema N Depression Y COPD N Glaucoma N Diabetic Eye Disease Y Anemia Y Heart Attack ([place]) Y Diabetes Y Bleeding Disorder N Arthritis Y Eye Trauma Y Acid Reflux (GERD) N Double Vision N Age-related Macular Degeneration N RD/retinal tear N Ocular trauma N Asthma N Cataract Y Sleep Apnea Y Thyroid Disorder Y Skin Cancer Y Hepatitis Y Heart Disease Y Rheumatoid Arthritis N Hypertension Y Glasses/Contacts Y Gynecological HistoryNo gynecological history recorded. 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 [...] by Organization Details LastModified Time None Recorded Payers Encounter Date Sequence Insurance Name Policy Number Policy Byren Covered Member ID Byrne Member ID Guarantor Name 09/30/[address] [facility] (MEDICARE REPLACEMENT/A DVANTAGE - PPO) [id number] Michelle Felipe [id number] Michelle Felipe OBGyn Episode No OBEpisode recorded.
--- OUTSIDE RECORDS SUMMARY | 2024-10-04 10:37 | XMS_ITS | Encounter Summary ---
Author Organization [facility] ystem Address [address] [place] [address] Care Team Providers Care Medical Office Receptionist Name Role Phone Alisa Kunz Primary Care Provider +1- [phone] Encounter Details Date Type Department Care Team (Late st Contact Info) Description 09/21/2024 Telephone [facility] [address] [facility] [address] [place] [address] Marj Delgado, PharmD [address] [place] [address] Social History Tobacco Use Types [...] to be (Past 1 Month) No 025 9:53 AM EDT Shown, Jodie Meza RN 2. Non-Specific Active Suici dillon Thoughts (Past 1 Month) No 09/21/2024 9:53 AM EDT Shown, Jodie Meza RN * Calculated C-SSRS Risk Score (Lifetime/Recent) Answer Date of Assessment Author No Risk Indicated 09/21/2024 9:53 AM EDT Shown, Jodie Meza RN * Dickinson Suicide Severity Rating Scale (Screener/Recent Self-Report) Question Answer Date of Assessment Author 6. Suicidal Behavior (Lifetime) No 9:53 AM EDT Shown, Jodie Meza RN documented as of this encounter Miscellaneous Notes * Telephone Encounter - Marj Delgado PharmD - 09/21/2024 2:11 PM EDT Scheduled patient 09/22 at 1130 - will bring in meter so we can check accuracy with QC test and against our clinic meter. Marj Delgado PharmD 09/21/2024 14:11 EDT * Telephone Encounter - Marj Delgado PharmD - 09/21/2024 11:51 AM EDT Spoke to Rosalba from cardiology - patient came in for cardioversion today and checked her INR via venipuncture, and INR was 1.9. INR was 2.7 yesterday on home monitor. Concerned home monitor is giving inaccurate results. Will bring patient into clinic before Friday for QC check and give new monitor if needed. Procedure rescheduled for Friday due to INR of 1.9 - Dr. Christina wants INR > 2.0 for procedure. Marj Delgado, PharmJoel 09/21/2024 11:55 EDT documented in this encounter Plan of Treatment Upcoming Encounters Date Type Department Care Team (Late st Contact Info) Description 12/02/2024 3:30 PM EDT Office Visit [facility] CARDIOLOGY [address] [place] [address] [place] [address] Sujit Reyes MD [address] [facility] [address] [place] [address] 01/19/2025 1:45 PM EST Office Visit [facility] CARDIOLOGY [address] [facility] [address] [place] [address] Naveen Velasquez MD [address] [facility] [address] [place] [address] documented as of this encounter Visit Diagnoses Not on filedocumented in this encounter Care Teams Medical Office Receptionist Relationship Specialty Start Date End Date Alisa Kunz DO [address] [place], [place] [id number] PCP - General Internal Medicine 04/26/21 documented as of this encounter
--- OUTSIDE RECORDS SUMMARY | 2024-10-04 10:37 | XMS_ITS | Encounter Summary ---
Author Organization [facility] ystem Address [address] [place] [address] Care Team Providers Care Blind Lacer Name Role Phone Alisa Kunz Primary Care Provider +1- [phone] Reason for Visit * Reason Onset Date Comments - CALL BACK 07/19/2024 Encounter Details Date Type Department Care Team (Late st Contact Info) Description 07/19/2024 Telephone [facility] CARDIOLOGY [address] [facility] [address] [place] [address] Naveen Velasquez MD [address] [facility] [address] [place] [id number] - CALL BACK Social History Tobacco Use [...] encounter Miscellaneous Notes * Telephone Encounter - Stephanie Dickinson RegSched Rep - 07/19/2024 3:33 PM EDT Caller: Michelle Felipe Relationship: Self Best call back number: [phone] What is the best time to reach you: LATER IN THE AFTERNOON Who are you requesting to speak with (clinical staff, provider, specific staff member): CLINICAL What was the call regarding: PT RECEIVED A CALL FROM DR. VELASQUEZ WHILE SHE WAS IN THE HOSPITAL. SHE IS WANTING TO FOLLOW UP WITH REGARDING THE CALL SHE GOT FROM HIM. Is it okay if the provider responds through [employer]: PLEASE CALL PT, THANK YOU documented in this encounter Plan of Treatment Upcoming Encounters Date Type Department Care Team (Late st Contact Info) Description 12/02/2024 3:30 PM EDT Office Visit [facility] CARDIOLOGY [address] [address] [facility] [place] [address] [place] [address] Sujit Reyes MD [address] [place] [address] 01/19/2025 1:45 PM EST Office Visit [facility]IOLOGY [address] [facility] [address] [place] [address] Naveen Velasquez MD [address] [facility] [address] [place] [address] documented as of this encounter Visit Diagnoses Not on filedocumented in this encounter Care Teams Blind Lacer Relationship Specialty Start Date End Date Alisa Kunz DO [address] [facility] [address] [place], [place] [id number] PCP - General Internal Medicine 04/26/21 documented as of this encounter
--- OUTSIDE RECORDS SUMMARY | 2024-10-04 10:37 | XMS_ITS | Encounter Summary ---
Author Organization [facility] ystem Address [address] [place] [address] Care Team Providers Care Arcade Game Technician Name Role Phone Ze Alisagricel Codygh Primary Care Provider +1- [phone] Reason for Referral * Hospital - Outpatient (Routine) - Authorized Specialty Diagnoses / Procedures Referred By Contac t Referred To Contact Diagnoses Paroxysmal atrial fibrillation Procedures Cardioversion External in Cardiology Department MD CARDIOVERSION ELECTIVE ARRHYTHMIA EXTERNAL Sujit Reyes MD [address] [facility] [address] [place] [address] Phone: tel: fax: [facility] INVASIVE LOCATION Referral ID Status Reason Start Date Expiration Date V isits Requested Visits Authorized [id number] Authorized 09/06/2024 12/06/2025 1 2 Reason for Visit * Reason Onset Date Comments - CALL BACK 09/06/2024 Encounter Details Date Type Department Care Team (Late st Contact Info) Description 09/06/2024 Telephone [facility] CARDIOLOGY [address] [facility] [address] [place] [address] Sujit Reyes MD [address] [facility] [address] [place] [address] - CALL BACK Social History Tobacco Use [...] Telephone Encounter - Halima Cortes RN - 09/06/2024 2:12 PM EDT Patient notified and aware. She is going to call and f/u with her physician at this afternoon. * Telephone Encounter - Halima Cortes RN - 09/06/2024 2:[address] Velasquez would like the patient to have a cardioversion done in 2 weeks when her INR's are therapeutic. He would also like her to f/u with her doctor at in regards to her shortness of breath and fluid retention. * Telephone Encounter - Mary Carranza RegSched Rep - 09/06/2024 11:08 AM EDT Caller: Michelle Felipe Relationship: Self Best call back number: [phone] What is the best time to reach you: ANYTIME Who are you requesting to speak with (clinical staff, provider, specific staff member): ANYONE What was the call regarding: PATIENT CONCERNED WITH SOB, LEG SWELLING, COUGHING WITH PHLEGM, AND HAND BLISTERS. HAS LEFT 3 VOICE MAILS AND REQUESTING A CALL BACK THOMPSON. documented in this encounter Plan of Treatment Upcoming Encounters Date Type Department Care Team (Late st Contact Info) Description 12/02/2024 3:30 PM EDT Office Visit [facility] CARDIOLOGY [address] [place] [address] [place] [address] Sujit Reyes MD [address] [facility] [address] [address] 01/19/2025 1:45 PM EST Office Visit [facility] CARDIOLOGY [address] [place] [address] Naveen Velasquez MD [address] [facility] [address] [place], [place] [phone] documented as of this encounter Visit Diagnoses Diagnosis Paroxysmal atrial fibrillation- Primary Atrial fibrillation documented in this encounter Care Teams Arcade Game Technician Relationship Specialty Start Date End Date Alisa Kunz DO [address] [place] [address] PCP - General Internal Medicine 04/26/21 documented as of this encounter
--- OUTSIDE RECORDS SUMMARY | 2024-10-04 10:37 | XMS_ITS | Encounter Summary ---
Author Organization [facility] ystem Address [address] [place] [address] Care Team Providers Care Arnp Name Role Phone Alisa Kunz Primary Care Provider +1- [phone] Encounter Details Date Type Department Care Team (Late st Contact Info) Description 09/16/2024 Prep for Surgery [facility] ORDERS ONLY [address] [place] [address] Peg Nails PAEsthelaC [address] [facility] [address] [place] [address] Social History Tobacco Use Types Packs/Day Years [...] Description 12/02/2024 3:30 PM EDT Office Visit [facility] CARDIOLOGY [address] [place] [address] [place] [address] Sujit Reyes MD [address] [facility] [address] [place] [address] 01/19/2025 1:45 PM EST Office Visit [facility] CARDIOLOGY [address] [facility] [address] [place] [address] Naveen Velasquez MD [address] [facility] [address] [place] [address] documented as of this encounter Visit Diagnoses Not on filedocumented in this encounter Care Teams Arnp Relationship Specialty Start Date End Date Alisa Kunz DO [address] [facility] [address] [place], [place] [id number] PCP - General Internal Medicine 04/26/21 documented as of this encounter
--- OUTSIDE RECORDS SUMMARY | 2024-10-04 10:37 | XMS_ITS | Continuity of Care Document ---
Author Organization [facility]THALM[facility] Address [address] [facility] [address]RD [place] [address] Care Team Providers Care Dental Aide Name Role Phone GILLES COOPER Nutrition Helper BRUCE SIEGEL Primary Care Provider VETO MONTESINOS National Sales Manager Assessment No assessment recorded. 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 Procedures Surgical History Date Name Laterality Status Provider Name and Address Organization Details Recorded Time 025 DAK - Cryo AK completed Mike Arnold [facility] 09/30/2024 13:02:38 025 OCT/Retina completed GILLES COOPER MD [address] [place] [address], [phone], [facility] 09/23/2024 15:15:57 025 thoracentesis completed Corky Powell [facility] 09/30/2024 12:49:02 025 DAK - Cryo AK completed Kayla Prince [facility] 07/05/2024 12:20:10 025 DAK - Biopsy, Tangential [facility] 12:09:54 025 OCT/Nerve completed GILLES COOPER MD [address] [place] [address], [address], [facility] 03/23/2024 17:00:49 024 DAK - Cryo AK completed [facility] 10/30/2023 14:05:21 024 DAK - Biopsy, Tangential completed [facility] 10/30/2023 14:09:15 024 Visual Field Extended completed GILLES COOPER MD [address] [place] [address], [address], [facility] 06/16/2023 14:49:13 024 OCT/Retina completed GILLES COOPER MD [address] [place] [address], [address], [facility] 04/16/2023 14:09:44 023 OCT/Nerve completed GILLES COOPER MD [address] [place] [address], [address], [facility] 01/06/2023 09:15:48 023 OCT/Retina completed GILLES COOPER MD [address] [place] [address], [address], [facility] 01/06/2023 09:15:41 023 biopsy of lung completed Gilles Nayak [facility] 01/06/2023 08:27:56 023 Visual Field Extended completed GILLES COOPER MD [address] [place] [address], [address], [facility] 05/14/2022 14:44:47 022 OCT/Retina completed GILLES COOPER MD [address] [place] [address] [place], [address], [facility] 10/08/2021 16:44:46 022 OCT/Nerve completed GILLES COOPER MD [address] [place] [address], [address], [facility] 05/24/2021 16:40:05 022 OCT/Retina completed GILLES COOPER MD [address] [place] [address], [address], [facility] 05/24/2021 16:40:06 021 Visual Field Extended completed GILLES COOPER MD [address] [place] [address], [phone], [facility] 11/22/2020 16:17:23 021 OCT/Nerve completed GILLES COOPER MD [address] [place] [address], [address], [facility] 08/17/2020 13:57:05 017 Cystourethroscopy completed Tia Hall [facility] 08/28/2016 14:44:58 017 Post Void Residual; Ultrasound completed Radha Herron [facility] 07/24/2016 16:36:07 Imaging Results None recorded. Procedure Notes None recorded. Medical Equipment None Reported. Allergies Allergen ID Allergen Name Allergen Category Reaction Reaction Severity Criticality Documentation Date Start Date Code Code System Note Provider Name and Address Organization Details Recorded Time 148681 morphine sulfate medicatio n Not available Not available Not available 02/01/20162012 66399 RxNorm Comme nt: Creat ed By: Trav Mitchell ed Date: 2012 3:45: 55 PM; Not Available [facility] 6 12:01:18 741475 tetracycl ine hydrochlo ride medicatio n Not available Not available Not available 02/01/20162015 90982 6 RxNorm Comme nt: Creat ed By: Muna graves Date: 2015 1:56: 37 PM; Not Available [facility] 6 12:01:18 546397 morphine sulfate medicatio n other Not available Not available 02/02/20162008 50474 RxNorm React ion: OTHER ; Comme nt: Creat ed By: Donn graves Date: 009 10:16 :46 AM; Not Available [facility] 6 08:25:26 266571 Keflex medicatio n Not available Not available Not available 08/16/2019 7 RxNorm Nilam Jett [facility] 0 14:21:12 684628 Product containin g penicilli n (product) medicatio n rash Not available Not available 05/24/2021 72851 8001 SNOMED David Maribel Lyly alisa [facility] 2 15:50:09 910070 Crestor medicatio n Not available Not available Not available 10/08/2021 30269 4 RxNorm Yamel Wild [facility] 2 15:39:18 080710 rosuvasta tin medicatio n Not available Not available Not available 10/08/2021 85018 2 RxNorm Yamel Wild [facility] 2 15:39:36 Medications Name Sig [...] Tobacco Smoking Status Never Smoker Esperanza Day [facility], [facility] 06/26/2016 15:31:37 How Much Tobacco Do You Chew? None Information not available 09/30/2016 What Was The Date Of Your Most Recent Tobacco Screening? 12/29/2023 [email or web address] Information not available 12/29/2023 Has Tobacco Cessation Counseling Been Provided? No [email or web address] Information not available 09/30/2016 Sex: Female Functional Status Question Answer Note LastModified by Organization D etails LastModified Time What is your level of alcohol consumption? Moderate [email or web address] Information not available 09/30/2016 Mental Status None recorded. Family History Relationship Description Onset Age of this Age Resolved Age Notes LastModified by Organization Details LastModified Time Father Arthritis [email or web address] Not avail able 09/30/2016 13:26:28 Notes:1. Heart disease MOTHE R and grandparents 2. Hypertension mother 3. Acute myocardial infarction gfth 4. Stroke syndrome mth 5. Droopy Eyelid gmth Medical History Condition Response Emphysema N Depression Y COPD N Glaucoma N Diabetic Eye Disease Y Anemia Y Heart Attack (ND) Y Diabetes Y Bleeding Disorder N Arthritis Y Eye Trauma Y Acid Reflux (GERD) N Age-related Macular Degeneration N Double Vision N RD/retinal tear N Ocular trauma N [...] SNOMED-CT Code Diagnosis ICD10 Code Diagnosis Note [id number] GILLES COOPER MD OPHTHALMO LOGY [address] [place] [address] 09/23/2024 12:52:56 09/23/2024 15:19:31 Primary open angle glaucoma 27019757 H40.1132 iop stablecont inue latanopros t qhs ou, brimonidin e bid ouhvf today stable ou6 mo complete, rnfl ou 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 suspect changing rx with hx of chelation oumr todaycall with problems Proliferat steven retinopathy due to type 2 diabetes mellitus 1759401643 109 E11.3599 continue f/u with RAKgetting shots ouno sig changes on retinal oct today Health Concerns Section Related Observation LastModified by Organization Detai ls LastModified Time None Recorded Concern Status LastModified by Organization Details LastModified Time None Recorded Payers Encounter Date Sequence Insurance Name Policy Number Policy Byrne Covered Member ID Byrne Member ID Guarantor Name 09/23/2024 1 [facility] (MEDICARE REPLACEMENT/A DVANTAGE - PPO) [id number] Michelle Felipe [id number] Michelle Felipe OBGyn Episode No OBEpisode recorded.
[2024-10-04 11:34] LABS: INR 2.04 (0.9-1.1); Prothrombin Time 21.5 seconds (10.1-12.5)
== END 2024-10-04 23:59 | disposition home or self-care (01) ==
LOC: LAB 10:25
PROVIDERS: PCP Internal Medicine; Visit Provider Nurse Practitioner Gerontology
DX: I51.3 Intracardiac thrombosis, not elsewhere classified (principal); I24.0 Acute coronary thrombosis not resulting in myocardial infarction
CPT/HCPCS: 36415; 85610

== ENCOUNTER 2024-10-18 14:47 | Outpatient (CLI) | payer MEDICARE, SELFPAY ==
--- OUTSIDE RECORDS SUMMARY | 2019-03-15 14:10 | XMS_ITS | Encounter Summary ---
[facility] Address [address] [place] [address] Care Team Providers Care Assistant Produce Manager Name Role Phone Jackson Malave MD Primary Care Provid er Reason for Referral * Hospital - Outpatient (Routine) - Closed Specialty Diagnoses / Procedures Referred By Luis Armando Referred To Contact Sleep Medicine Diagnoses EWELINA (obstructive sleep apnea) Fatigue, unspecified type Procedures Home Sleep Study Jesu Duarte MD Phone: tel: fax: [facility] [address] [place] [address] Phone: tel: fax: Referral ID Status Reason Start Date Expiration Date Visits Re quested Visits Authorized [id number] Closed 02/09/2019 02/09/2020 1 1 Reason for Visit * Hospital - Outpatient (Routine) - Closed Specialty Diagnoses / Procedures Referred By Contdarwin t Referred To Contact Sleep Medicine Diagnoses EWELINA (obstructive sleep apnea) Fatigue, unspecified type Procedures Home Sleep Study Jesu Duarte MD Phone: tel: fax: [facility] [address] [facility] [address] [place] [address] Phone: tel: fax: Referral ID Status Reason Start Date Expiration Date Visits Re quested Visits Authorized [id number] Closed 02/09/2019 02/09/2020 1 1 Encounter Details Date Type Department Care Team (Late st Contact Info) Description 03/15/2019 1:10 PM EST Hospital Encounter [facility] [address] [facility] [address] [place] [address] Jesu Duarte MD [address] [place] [address] EWELINA (obstructive sleep apnea); Fatigue, [...] alcohol? 4 or more times a week 10/12/2024 Q2: How many drinks containi ng alcohol do you have on a typical day when you are drinking? 1 or 2 Q3: How often do you have si x or more drinks on one occasion? Never 10/12/2024 Abuse Screen Answer Date Recorded Feels Unsafe at Home or Work/School no 10/12/2024 Feels Threatened by Someone no 07/2024 Does Anyone Try to Keep You From Having Contact with Others or Doing Things Outside Your Home? no 10/12/2024 Physical Signs of Abuse Present no 10/12/2024 Housing Stability Answer Date Recorded Current Living Arrangements home 07/2024 Potentially Unsafe Housing Conditions Not on luisa e 10/12/2024 Disabilities Answer Date Recorded Difficulty Concentrating, Remembering or Making Decisions no 10/12/2024 Difficulty Managing Errands Independently yes 10/12/2024 Comments No Sex and Gender Information Value [...] Wish to be (Past 1 Month) No 025 10:26 AM EDT Cece Prieto RN 2. Non-Specific Active Suici dillon Thoughts (Past 1 Month) No 10/12/2024 10:26 AM EDT Eugene Prieto RN * Calculated C-SSRS Risk Score (Lifetime/Recent) Answer Date of Assessment Author No Risk Indicated 10/12/2024 10:26 AM EDT Cece Prieto RN * [place] Suicide Severity Rating Scale (Screener/Recent Self-Report) Question Answer Date of Assessment Author 6. Suicidal Behavior (Lifetime) No 10:26 AM EDT Cece Prieto RN documented as of this encounter Plan of Treatment Upcoming Encounters Date Type Department Care Team (Late st Contact Info) Description 10/21/2024 2:15 PM EDT Office Visit [facility] [address] [place] [phone] Shannen Horta, DIRECTOR [facility] [address] [place] [address] 12/02/2024 3:30 PM EDT Office Visit [facility] [address] [place] [address] [place] [address] Sujit Reyes MD [address] [place] [address] 01/19/2025 1:45 PM EST Office Visit [facility] [address] [facility] [address] [place] [address] Naveen Velasquez MD [address] [place] [address] documented as of this encounter Procedures Procedure [...] had a home sleep test with an [employer] One device that measured airflow at the [...] Jesu Duarte MD 03/18/19 4:14 PM us Jesu Duarte MD SLEEP CENTER ORDERABLE S Final Result documented in this encounter Visit Diagnoses Diagnosis EWELINA (obstructive sleep apnea) Obstructive sleep apnea (adult) (pediatric) Fatigue, unspecified type documented in this encounter Additional Health Concerns Infection Onset Date Last Indicated Resolved Time COVID Screen (preop/placement) 05/01/2020 05/01/2020 05/02/2020 9:16 AM EST documented as of this encounter Care Teams Assistant Produce Manager Relationship Specialty Start Date End Date Jackson Malave MD PCP - General Internal Medicine 12/09/18 04/25/21 documented as of this encounter
--- OUTSIDE RECORDS SUMMARY | 2024-08-14 15:16 | XMS_ITS | Encounter Summary ---
Author Organization [facility] Address [address] [place] [address] Care Team Providers Care Circuit Walker Name Role Phone Alisa Kunz DO Primary Care Provider [phone] Kodi Bustos DO Unavailable [phone] Sujit Arriola MD Unavailable [phone] Sujit Reyes MD Unavailable [phone] Zully Caldwell LPN Unavailable Unavailable Ekaterina Gómez Unavailable Unavailable Reason for Referral * Home Health (Routine) - Authorized Specialty Diagnoses / Procedures Referred By Contac t Referred To Contact Home Health Services Diagnoses Pleural effusion Kenneth James MD [address] [place] [address] Phone: tel: fax: Referral ID Status Reason Start Date Expiration Date Visits Requested Visits Authorized [id number] Authorized Specialty Services Required 08/23/2024 02/22/2026 999 999 Reason for Visit * Reason Comments Shortness of Breath * Auth/Cert (Routine) Specialty Diagnoses / Procedures Referred By Contac t Referred To Contact Diagnoses Shortness of breath Pleural effusion Acute on chronic congestive heart failure, unspecified heart failure type (CMS/HCC) Acute on chronic hypoxic respiratory failure Arben Ibarra MD [address] [place] [address] Phone: tel: fax: [facility] Inpatient [address] [place] [address] Phone: tel: Referral ID Status Reason Start Date Expiration Date Visits Re quested Visits Authorized [id number] 1 1 Encounter Details Date Type Department Care Team (Late st Contact Info) Description 08/14/2024 3:16 PM EDT - 08/24/2024 3:19 PM EDT Hospital Encounter [facility] Inpatient [address] [place] [address] Jackson Puente MD [address] [place] [address] Arben Ibarra MD [address] [place] [address] Doron Thayer MD [address] [place] [address] Kenneth James MD [address] [place] [address] Pleural effusion (Primary Dx); Acute on chronic congestive heart failure, unspecified heart failure type ([facility]/HCC); Shortness of breath; Systemic lupus erythematosus (SLE) in adult ([facility]) Discharge Disposition: Home or Self Care Social [...] How often do you attend [facility] or gnosticist services? 1 to 4 times per year 08/30/2022 Do you belong to any clubs o r organizations such as protestant groups, unions, fraternal or athletic groups, or [...] Recorded Patient Health Questionnaire-2 Score 0 08/04/2024 [facility] - Occupational [...] any time in the past 12 m [facility], were you homeless or living [...] any time in the past 12 m [facility], were you homeless or living [...] drink first t anselmo in the morning (EYE-INBOUND CUSTOMER SERVICE AGENT) to steady your nerves or to get rid of a hangover? 0 08/14/2024 CAGE Questionnaire Score 0 025 Utilities Answer Date Recorded In the past 12 months has e [employer], gas, oil, or water company threatened to [...] Dugan RN 6. Suicidal Behavior (Lifetime) No 8:11 AM EDT Kosta Dugan RN documented [...] of the week 90 tablet 1 07/16/2024 insulin glargine (Toujeo SoloStar) 300 UNIT/ML injection [...] 1 tablet by mouth every morning. 04/13/2020 oxygen (O2) gas Inhale 2 L nightly. [...] by mouth daily. 30 tablet 07/15/2024 5 gabapentin (Neurontin) 300 MG capsule Take 1 capsule by mouth 2 times a day. 60 capsule 08/24/2024 5 hydroxychloroquine (Plaquenil) 200 MG tabletIndications: Systemic lupus erythematosus (SLE) in adult ([facility]) Take 1 tablet by mouth daily. 90 tablet 1 07/21/2024 5 mycophenolate (CellCept) 500 MG tabletIndications: Systemic lupus erythematosus (SLE) in adult ([facility]) Take 2 tablets by mouth 2 times a day. 120 tablet 08/24/2024 5 nitroglycerin (Nitrostat) 0.[address] 1 tablet under the tongue every 5 minutes as needed for chest pain. 5 Pitavastatin Calcium (Livalo) 4 MG tabletIndications: Type 1 diabetes mellitus with other specified complication (CMS/HCC),Dyslipid emia Take 1 tablet by mouth 1 (one) time each day. 90 tablet 3 07/07/2023 5 Probiotic Product (acidophilus probiotic blend) capsule Take [...] and Address: Alisa Kunz DO [address] [address] Referring provider name and address: No referring provider defined for this encounter. Chief Concern, Brief History of Present Illness, and Hospital Course Doron Felipe is a 74-year-old woman with a PMH significant for SLE on Plaquenil followed by [facility], chronic bl pleural effusions, chronic hypoxic respiratory [...] this encounter Procedures Cardiac catheterization Case Request Space Control Supervisor: Right heart catheterization Right heart catheterization (N/A) [...] Ellipta 200-62.5-25 MCG/ACT aerosol powder Generic drug: Nscqpeyvzoa-Wgatznira-Shjgsh Inhale 1 puff 1 (one) time each [...] Your Medications These medications were sent to [facility] [address] [address] [address] gabapentin 300 MG capsule These medications were sent to [facility] - [place], [place] - [address] [facility] [id number] mycophenolate 500 MG tablet Discharge Diagnosis Medical Problems Active and Resolved Hospital Problems Hospital Type 1 diabetes mellitus with other specified complication ([facility]) Overview Addendum 01/05/2024 2:49 PM by Alisa Kunz, - Complicated by neuropathy, nephropathy, retinopathy, currently struggling with hyperglycemia. Last A1c 8.0% in 10/2023. Follows closely with endocrinology. - On statin, ARB - Follows with Endocrinology. Wears Dexcom CGM. Acquired hypothyroidism Overview Addendum 01/05/2024 2:47 PM by Alisa Kunz, DO - Last TSH 0.77 in 06/2023 - On levothyroxine 125 mcg daily. SLE (systemic lupus erythematosus) ([facility]) Overview Addendum 12/26/2022 9:45 AM by Alisa Kunz, DO - Chronic, worsening. - Pleural effusion [...] Center 09/08/2024 11:20 AM Alisa Kunz DO [facility] 10/07/2024 4:00 PM [facility] ECHO 1 [facility]G [facility] 10/14/2024 4:00 PM [facility] Shoemaker [facility] 10/27/2024 1:40 PM Anne-Marie Kolb APRN ENDOTFBN[facility] 11/29/2024 10:20 AM Alisa Kunz DO [facility] 02/02/2025 10:30 AM Sadiq Osborne MBBS [facility] Test Results Pending At Discharge Pending Labs [...] Note Doron Felipe 74 y.o. female CSN: [id number] Admission: 08/14/2024 3:16 PM Primary Problem: Acute on chronic hypoxic respiratory failure Primary Nail Making Machine Setter: Primary Caregiver: Family Assistance Available at Discharge: Current Outpatient/Agency/Support Group: clinic(s), DME Availability of Care Givers (#Hours): 24 hours Family/Nail Making Machine Setter(s) Willingness Assessed to care for patient at home: Yes Family/Nail Making Machine Setter(s) Readiness Assessed to care for patient at [...] By: patient Follow-up: Debbie Parnell ([employer]) [phone] Follow up Provider for Ambulatory Population Health- [...] provided a number for Debbie Parnell ( [facility] [employer] [facility]) due to the concern that her family is unable to assist at times with transportation. Pt reported that she was comfortable with returning home, Pt reported knowing how to utilize [facility] Medicare transportation if needed and reported that her insurance provides certain amount transportation within a couple days after discharging from the hospital. No further services planned. Nathan Lima, INDUSTRIAL WASTE TREATMENT TECHNICIAN, HYDRAULIC SPINNER * Delilah Ni - Tk Hale - 08/24/2024 12:37 PM EDT Images from the original note were not included. [id number] Pleural Effusion The pleura is a smooth [...] fainting Last Reviewed Date: 2023 00:00:00 ?? [id number] [employer]. All rights reserved. This information is not intended as a substitute for professional medical care. Always follow your healthcare professional's instructions. * Delilah OnIR - Tk Hale - 08/24/2024 12:36 PM EDT Images from the original note were not included. [id number] Heart Failure What is heart failure? The [...] money problems,housing, access to food, and child care attendant school. If you can?t get to medical appointments, [...] weekends. Last Reviewed Date: 2022 00:00:00 ?? [id number] [employer]. All rights reserved. This information is not intended as a substitute for professional medical care. Always follow your healthcare professional's instructions. * Progress Notes - Alex Escobar Saran - 08/24/2024 9:46 AM EDT Physical Therapy Treatment Patient Name: Doron Felipe Today's Date: 08/24/2024 PT Discharge Recommendations: Home with 24 hour assistance, Outpatient PT, Outpatient OT, Home health PT, Home health OT Equipment Recommended: Patient owns appropriate equipment Subjective Patient agreeable to physical therapy. Participants in Care Family/Caregiver Present: No Space Control Supervisor: No Presentation Oxygen Oxygen Therapy: Supplemental oxygen [...] safety, along with improving upright activity tolerance. MILLING OPERATOR provided cues to promote maximal independence and safety. Refer to sections below for further details. Bed Mobility Bed Mobility Interventions: Cues to initiate task. Bed Mobility Exam: Scooting/Bridging Level of Jackson: Modified independence Physical/Nonphysical Assist: Supervision Assistive Device: Bed rails Bed Mobility Exam: Supine to Sit Level of Jackson: Modified Jackson Physical/Nonphysical Assist: HOB elevated, Set-up required Assistive Device: Bed rails Transfers Transfer Interventions: Provided cues for proper hand placement, BLE set-up, forward trunk leans toinitiate coming to stand, and safe descent to sit. Transfer Exam: Sit to stand Level of Jackson: Stand-by assist Physical/Nonphysical Assist: Set-up required, Verbal Cues, Nonverbal cues (demo/gestures) Assistive Device: Walker, rolling Transfer Exam: Stand to Sit Level of Jackson: Stand-by assist Physical/Nonphysical Assist: Set-up required, Verbal Cues, Nonverbal cues (demo/gestures) Assistive Device: Walker, rolling Transfer Exam: Bed to Chair/Chair to Bed Level of Jackson: (deferred and wanted to sit EOB instead) [...] for proper return of demonstration of exercises. MILLING OPERATOR educated patient on HEP and encouraged her to perform 2-3 times daily. Access Code: [email or web address] URL: [email or web address] Date: 08/24/2024 Prepared by: Hugh Exercises - [...] agree with this document written by the certified adapted physical educator for this patient on this date/time. * Consults - Sandy Figueroa RD - 08/24/2024 9:39 AM EDT Adult Nutrition Evaluation Note Doron Felipe 74 y.o. female CSN: [id number] Room/Bed 208/208C Nutrition evaluation type: follow-up Reason [...] (131 lb 9.8 oz) BMI (Calculated): 22.58 [place] Body Weight (kg): 54.5 Percent [place] Body Weight: 112 Wt Readings from Last [...] Regular Adult Carbohydrate Restriction: Consistent CHO 2 (6356-3769 Damon, 80 g/meal) Adult Sodium Restriction: 2,000 mg Na Percent Meals Eaten (%): avg 81% (08/15-08/19) Diet Experience and Nutrition History: Diet Education Provided: Will monitor Pertinent home medications: Reviewed. Buddhist needs: Nutrition Focused Physical Exam: Unable to [...] right leg 02/12/2024 CHF (congestive heart failure) ([facility]) Chronic respiratory failure 2019 Clotting disorder ([facility]) Congenital malformation COPD (chronic obstructive pulmonary disease) ([facility]) 2019 Coronary artery disease CTS (carpal [...] Was ableto get patient in with [facility] ophthalmology right after our clinic appointment [...] CARDIAC PACEMAKER PLACEMENT N/A Pacemaker Placement from [facility] CARPAL TUNNEL RELEASE N/A Neuroplasty Decompression Median Nerve At Carpal Tunnel from [facility] CERVICAL BIOPSY W/ LOOP ELECTRODE EXCISION 2010 SECTION, CLASSIC 1976, 1979 SECTION, LOW TRANSVERSE N/A Section from [facility] COLONOSCOPY N/A Complete Colonoscopy from [facility] CORONARY ARTERY BYPASS GRAFT N/A CABG from [facility] EYE SURGERY N/A Eye Surgery from [facility] FRACTURE SURGERY SPINE SURGERY THORACENTESIS TOE SURGERY Left 02/07/2024 hematoma removal of upper skin on L big toe TONSILLECTOMY N/A Tonsillectomy from [facility] [3] Social History Tobacco Use Smoking status: [...] 125 mcg, Oral, q AM magic mouthwash diphen/lido/svcl-lqd-yaycud, 15 mL, Swish & Spit, Before meals & nightly metoprolol succinate XL, 25 mg, Oral, Daily Tiotropium [place] Monohydrate, 2 puff, Inhalation, Daily AND mometasone- [...] only (use of w/c in community) Mobility Jackson Independent gait with device History of Falls [...] energy for task, balance, LE strength &endurance, and decreased postural strength as major barriers [...] shoulders and head. BED MOBILITY Level of Jackson Rolling/Turning Modified independence Scooting/Bridging Modified independence Supine to Sit Modified Jackson Sit to Supine Modified independence TRANSFERS Level of Jackson Physical/Non-physical Assist AE Sit to Stand Stand-by [...] Weight shift posterior to midline Level of Jackson Balance Support Interventions Static Sit Standby assist [...] to ADLindependence. Pt verbalized understanding. Level of Jackson Interventions Feeding Independent, Setup Edge of bed [...] 08/16/24 2 weeks Post treatment OT educated staffing mgr on patient ADL assist requirements, physical assist levels required, specialized techniques required for transfers, patients current pain levels upon conclusion ofsession, patients demeanor and overall performance with therapy. Therapist then answered all question RN and RN tech staff had. Written by Edgar Harris on 08/24/24 * Progress Notes - Yvonne Carballo, PharmD - 08/24/2024 9:09 AM EDT Antithrombosis [...] anticipated in 2-4 days Yvonne Carballo PharmD, [facility] Internal Medicine Clinical Pharmacist * [...] again as needed. Boby Rouse APRN Pager: [phone] * Progress Notes - Tk Hale - [...] Home Anticipated discharge needs: None Family Contact: Rutihe Jamil John Madyson Hernandes Follow-up: PCP Cardiology Pulmonology Rheumatology Endocrinology Future Appointments Date Time Provider Department Center 09/08/2024 11:20 AM Alisa Kunz, DO [facility] 10/07/2024 4:00 PM [facility] ECHO 1 E[facility]G [facility] 10/14/2024 4:00 PM La[facility] Shoemaker MD [facility] 10/27/2024 1:40 PM Anne-Marie Kolb, YAMILET ENDOT[facility] [place] 11/29/2024 10:20 AM Alisa Kunz, [facility] 02/02/2025 10:30 AM Sadiq Osborne MBBS [facility] Tk Hale, MS4 Cosigned by Kenneth James MD at 08/23/2024 5:58 PM EDT Associated attestation - Kenneth James MD - 08/23/2024 5:58 PM EDT I saw and evaluated the patient with the medical/MEDICARE COMPLIANCE AUDITOR/PA student. I discussed the case with the medical/MEDICARE COMPLIANCE AUDITOR/PA student and agree with the findings and [...] Note Doron Felipe 74 y.o. female CSN: [id number] Admission: 08/14/2024 3:16 PM Primary Problem: Acute [...] recommending HH PT/OT, SW sent referrals via [employer] on 08/23/2024. SW will continue to follow-up with pt's MD and care team on their progress and discharge plan. Nathan Lima MSW, HYDRAULIC SPINNER * Progress Notes - Yvonne Carballo, PharmD - 08/23/2024 8:37 AM EDT Antithrombosis [...] INR in 3-5 days Yvonne Carballo PharmD, [facility] Internal Medicine Clinical Pharmacist * [...] recommendations. Will continue with PO lasix and bsesie once sodium corrected #Loose stool - discontinue [...] Department Center 09/08/2024 11:20 AM Alisa Kunz, [facility] 10/07/2024 4:00 PM [facility] ECHO 1 [facility]CHG [facility] 10/14/2024 4:00 PM Lavern Shoemaker MD [facility] 10/27/2024 1:40 PM [facility]b [facility] 11/29/2024 10:20 AM Alisa Kunz, [facility] 02/02/2025 10:30 AM Sadiq Osborne [facility] Tk Hale MS4 Cosigned by Kenneth James MD at 08/22/2024 3:48 PM EDT Associated attestation - Kenneth James MD - 08/22/2024 3:48 PM EDT I saw and evaluated the patient with the medical/MEDICARE COMPLIANCE AUDITOR/PA student. I discussed the case with the medical/MEDICARE COMPLIANCE AUDITOR/PA student and agree with the findings and [...] full effect on INR in 3-5 days Iraj FreemanD, [facility] Internal Medicine Clinical Pharmacist * [...] INR in 3-5 days Yvonne Carballo PharmD, [facility] Internal Medicine Clinical Pharmacist * Care Plan - Marlene Jain RN - 08/20/2024 11:35 PM EDT Problem: Adult [...] Center 09/08/2024 11:20 AM Alisa Kunz, DO [facility] 10/07/2024 4:00 PM [facility] ECHO 1 E[facility]CHG [facility] 10/14/2024 4:00 PM Lavern Shoemaker MD [facility] 10/27/2024 1:40 PM Anne-Marie Kolb APRN ENDOTFBNBR [place] 11/29/2024 10:20 AM Alisa Kunz, DO [facility] 02/02/2025 10:30 AM Sadiq Osborne MB[facility] Tk Hale, MS4 Cosigned by Kenneth James MD at 08/20/2024 5:23 PM EDT Associated attestation - Kenneth James MD - 08/20/2024 5:23 PM EDT I saw and evaluated the patient with the medical/MEDICARE COMPLIANCE AUDITOR/PA student. I discussed the case with the medical/MEDICARE COMPLIANCE AUDITOR/PA student and agree with the findings and [...] only (use of w/c in community) Mobility Jackson Independent gait with device History of Falls [...] to Physical Therapy treatment session. Visitors Present Space Control Supervisor (if applicable) OBJECTIVE PAIN No complaints of [...] level of function. BED MOBILITY Level of Jackson Physical/Non- physical Assist Adaptive Equipment Utilized Rolling/ Turning Modified independence Bed rails Scooting/ Bridging Modified independence Bed rails Supine to Sit Modified Jackson HOB elevated, Set-up required Bed rails Sit to Supine Modified independence Set-up required, HOB elevated Bed rails Interventions TRANSFERS Level of Jackson Physical/Non- physical Assist Adaptive Equipment Utilized Sit to Stand Contact guard Set-up required, Verbal Cues, Nonverbal cues (demo/gestures) Walker, rolling Stand to sit Contact guard Set-up required, Verbal Cues, Nonverbal cues (demo/gestures) Walker, rolling Bed to Chair Toilet Transfer Shower Transfer Interventions AMBULATION Level of Jackson Distance Adaptive Equipment Utilized Ambulation Contact guard [...] Weight shift posterior to midline Level of Jackson Balance Support Interventions Static Sit Standby assist Feet supported, Right upper extremity support, Left upper extremity support Dynamic Sit Standby assisst Feet supported Static Stand Contact guard Right upper extremity support, Left upper extremity support (rolling walker) Dynamic Stand Contact guard Right upper extremity support, Left upper extremity support (rolling walker) Lateral weight shifts, Anterior/Posterior weight shifts, Reaching for objects STANDARDIZED ASSESSMENTS [facility] 6-Clicks Mobility Assessment Difficulty patient has turning [...] 3-5 steps with a railing?: A lot [facility] 6-Clicks Mobility Assessment Total : 19 ASSESSMENT [...] only (use of w/c in community) Mobility Jackson Independent gait with device History of Falls [...] 13 Interventions Occupational therapist constructed a personal [employer] home exercises program for patient to assist [...] promote strengthening and maintaining flexibility. Access Code: [email or web address] URL: [email or web address] Date: 08/20/2024 Prepared by: Edgar Harris Exercises [...] - 10 reps BED MOBILITY Level of Jackson Physical/Non-physical Assist Rolling/Turning Modified independence pt required [...] verbalized understanding. . Supine to Sit Modified Jackson HOB elevated, Set-up required Pt provided instruction [...] b/l LE onto bed. TRANSFERS Level of Jackson Physical/Non-physical Assist AE Sit to Stand Contact [...] Weight shift posterior to midline Level of Jackson Balance Support Interventions Static Sit Standby assist [...] to ADLindependence. Pt verbalized understanding. Level of Jackson Interventions Feeding Independent, Setup Bed level Grooming [...] 08/16/24 2 weeks Post treatment OT educated staffing mgr on patient ADL assist requirements, physical assist levels required, specialized techniques required for transfers, patients current pain levels upon conclusion ofsession, patients demeanor and overall performance with therapy. Therapist then answered all question RN and RN tech staff had. Written by Edgar Harris on 08/20/24 * Consults - Rosario Quick RD - 08/20/2024 1:04 PM EDT Adult Nutrition Evaluation Note Doron Felipe 74 y.o. female CSN: [id number] Room/Bed 208/208C Nutrition evaluation type: assessment Reason for evaluation: [facility] course: 74 yo female who is followed [...] (134 lb 14.7 oz) BMI (Calculated): 23.15 [place] Body Weight (kg): 54.5 Percent [place] Body Weight: 112 Wt Readings from Last [...] Regular Adult Carbohydrate Restriction: Consistent CHO 2 (2878-0729 Damon, 80 g/meal) Adult Sodium Restriction: 2,000 mg Na Percent Meals Eaten (%): avg 81% (08/15-08/19) Diet Experience and Nutrition History: Diet Education Provided: Will monitor Pertinent home medications: Reviewed. Buddhist needs: Nutrition Focused Physical Exam: Unable to [...] 75% most meals Acuity Level: [address], LD [1] Past Medical History: Diagnosis Date 2018-nCoV acute respiratory disease 05/07/2022 Alcohol use Allergic 1973 Anemia Anxiety Arthritis Asthma Cellulitis 02/13/2024 Cellulitis of right leg 02/12/2024 CHF (congestive heart failure) ([facility]) Chronic respiratory failure 2019 Clotting disorder ([facility]) Congenital malformation COPD (chronic obstructive pulmonary disease) ([facility]) 2019 Coronary artery disease CTS (carpal tunnel syndrome) Dental disease Depression Diabetes mellitus type I ([facility]) Disease of thyroid gland Eczema Fracture [...] Was ableto get patient in with [facility] ophthalmology right after our clinic appointment [...] CARDIAC PACEMAKER PLACEMENT N/A Pacemaker Placement from [facility] CARPAL TUNNEL RELEASE N/A Neuroplasty Decompression Median Nerve At Carpal Tunnel from [facility] CERVICAL BIOPSY W/ LOOP ELECTRODE EXCISION 2010 SECTION, CLASSIC 1976, 1979 SECTION, LOW TRANSVERSE N/A Section from [facility] COLONOSCOPY N/A Complete Colonoscopy from [facility] CORONARY ARTERY BYPASS GRAFT N/A CABG from [facility] EYE SURGERY N/A Eye Surgery from [facility] FRACTURE SURGERY SPINE SURGERY THORACENTESIS TOE SURGERY Left 02/07/2024 hematoma removal of upper skin on L big toe TONSILLECTOMY N/A Tonsillectomy from [facility] [3] Social History Tobacco Use Smoking status: [...] 125 mcg, Oral, q AM magic mouthwash diphen/lido/acfw-kwk-sqwmqg, 15 mL, Swish & Spit, Before meals & nightly magnesium oxide, 400 mg, Oral, Daily metoprolol succinate XL, 25 mg, Oral, Daily Tiotropium [place] Monohydrate, 2 puff, Inhalation, Daily AND mometasone- [...] No Patient Education : Neeru Carballo, PharmD, [facility] Internal Medicine Clinical Pharmacist * Progress Notes - Boby Rouse, DIRECTOR FUNDS DEVELOPMENT - 08/20/2024 9:59 AM EDT Subjective No [...] 08/17/2024 Will continue to drain to - [id number] suction. - Will repeat chest x-ray tomorrow morning and consider chest tube removal. - Incentive Spirometry and mobilize/ out of bed as tolerated. This patient and plan of care has been discussed with Dr. Edward Bojorquez. Boby Rouse APRN Pager: [phone] * Nursing Note - Sujit Figueroa RN [...] Center 09/08/2024 11:20 AM Alisa Kunz DO [facility] 10/07/2024 4:00 PM [facility] ECHO 1 ECHOCHG [facility] 10/27/2024 1:40 PM Anne-Marie Kolb, YAMILET ENDOTFBNBR [facility] 11/29/2024 10:20 AM Alisa Kunz DO [facility] 02/02/2025 10:30 AM Sadiq Osborne MBBS [facility] Tk Hale, MS4 Cosigned by Kenneth James MD at 08/19/2024 3:22 PM EDT Associated attestation - Kenneth James MD - 08/19/2024 3:22 PM EDT I saw and evaluated the patient with the medical/MEDICARE COMPLIANCE AUDITOR/PA student. I discussed the case with the medical/MEDICARE COMPLIANCE AUDITOR/PA student and agree with the findings and [...] continue to follow patient's clinical progress daily. Iraj EcheverriaD, [facility] Clinical Pharmacist - Internal Medicine Available via SecureVenturesityt * Procedures - Boby Rouse APRN - 08/19/2024 12:10 PM EDT Chemical Pleurodesis [...] below level ofpatients chest and drain to -[id number] suction. After this intended time plan to place chest tube to -[id number] suction . Complications: None Recommendation Follow up chest x-ray tomorrow morning Avoid NSAIDS and steroids Drain to -[id number] suction * Progress Notes - Yue Zaragoza - 08/19/2024 10:48 AM EDT Case Management Adult Progress Note Doron Felipe 74 y.o. female CSN: [id number] Admission: 08/14/2024 3:16 PM Primary Problem: Acute [...] pleural effusions who initially presented to the [facility] with a chief complaint of progressively [...] if further questions arise. Edgar Zaragoza MD [facility] [place] * Progress Notes - Macho Diaz Sanjuana - 08/18/2024 2:35 PM EDT PHYSICAL THERAPY [...] only (use of w/c in community) Mobility Jackson Independent gait with device History of Falls [...] to Physical Therapy treatment session. Visitors Present Space Control Supervisor (if applicable) OBJECTIVE PAIN Pt notes discomfort [...] level of function. BED MOBILITY Level of Jackson Physical/Non- physical Assist Adaptive Equipment Utilized Rolling/ Turning Independent Bed rails Scooting/ Bridging Stand-by assist (to scoot towards EOB) Verbal Cues Supine to Sit Stand-by assist Verbal Cues Sit to Supine Stand-by assist Verbal Cues Interventions TRANSFERS Level of Jackson Physical/Non- physical Assist Adaptive Equipment Utilized Sit to Stand Contact guard Set-up required, Verbal Cues, Nonverbal cues (demo/gestures) Walker, rolling Stand to sit Contact guard Set-up required, Verbal Cues, Nonverbal cues (demo/gestures) Walker, rolling Bed to Chair Toilet Transfer Shower Transfer Interventions AMBULATION Level of Jackson Distance Adaptive Equipment Utilized Ambulation Contact guard [...] Weight shift posterior to midline Level of Jackson Balance Support Interventions Static Sit Standby assist Feet supported, Right upper extremity support, Left upper extremity support Dynamic Sit Standby assisst Feet supported Static Stand Contact guard Right upper extremity support, Left upper extremity support (via RW) Dynamic Stand Contact guard Right upper extremity support, Left upper extremity support (RW) STANDARDIZED ASSESSMENTS [facility] 6-Clicks Mobility Assessment Difficulty patient has turning [...] 3-5 steps with a railing?: A lot [facility] 6-Clicks Mobility Assessment Total : 17 ASSESSMENT [...] Diaz on 08/18/24 * Progress Notes - Yvonne Carballo PharmD - 08/18/2024 1:12 PM EDT Antithrombosis [...] Patient Education : Incomplete Yvonne Carballo PharmD, [facility] Internal Medicine Clinical Pharmacist * [...] only (use of w/c in community) Mobility Jackson Independent gait with device History of Falls [...] shoulders and head. BED MOBILITY Level of Jackson Physical/Non-physical Assist Rolling/Turning Independent pt is physically [...] b/l LE onto bed. TRANSFERS Level of Jackson Physical/Non-physical Assist AE Sit to Stand Contact [...] for slow decent to sitting surface. W tish, rolling BALANCE pt was able to sit [...] Weight shift posterior to midline Level of Jackson Balance Support Interventions Static Sit Standby assist [...] to ADLindependence. Pt verbalized understanding. Level of Jackson Interventions Feeding Independent, Setup Bed level Grooming [...] 08/16/24 2 weeks Post treatment OT educated staffing mgr on patient ADL assist requirements, physical assist [...] Center 08/19/2024 1:30 PM Lavern Shoemaker MD [facility] 09/08/2024 11:20 AM Alisa Kunz, [facility] 10/07/2024 4:00 PM ASTUD[facility]O ECHO 1 ECHOCHG [facility] 10/27/2024 1:40 PM [facility] Kolb [facility] 11/29/2024 10:20 AM Alisa Kunz, DO [facility] 02/02/2025 10:30 AM Sadiq Osborne MBBS R[facility]KYC [place] Associated attestation - Kenneth James MD - 08/18/2024 5:37 PM EDT I saw and evaluated the patient with the medical/MEDICARE COMPLIANCE AUDITOR/PA student. I discussed the case with the medical/MEDICARE COMPLIANCE AUDITOR/PA student and agree with the findings and [...] 08/17/2024 Will continue to drain to - [id number] suction. - Will repeat chest x-ray tomorrow morning and plan on right talc slurry chemical pleurodesis tomorrow 08/19/2024 at bedside. This patient and plan of care has been discussed with Dr. Edward Bojorquez. Boby Rouse APRN Pager: [phone] * Pre-Sedation Documentation - Edgar Zaragoza MD [...] been discussed with the patient and/or their representative phlebotomy services. All questions answered and they agree to [...] pleural effusions who initially presented to the [facility] with a chief complaint of progressively worsening shortness for breath. . Cardiology is being consulted for appropriateness of hemodynamic assessment with right heart catheterization. She has required therapeutic thoracentesis periodically. She follows with cardiology through [facility] as an outpatient last seen on 02/17/2024. [...] not a thrombus. Patient follows closely with [facility] cardiology who would like patient to [...] Every morning ezetimibe (ZETIA) 10 mg, Nightly Rrakldshdns-Kwkyyrxny-Pebdfd (Trelegy Ellipta) 200-62.5-25 MCG/ACT aerosol powder 1 [...] y.o. female who initially presented to the [facility] for shortness of breath associated with pleural effusions, and Cardiology is being consulted for recommendations and management of coordination of the RHC. Patient has diuresed well. Chest tube placement. It is totally reasonable to obtain RHC to see if evaluated filling pressures are contributing to the pleural space fluid accumulation more than previously thought. Recommendations/Plan: - maintain accurate I/Os - NPO at NH - plan for in and out RHC on 08/18/2024 - continue diuresis The following cardiovascular risk factors and co-morbidities complicates the management of these conditions: Fluid & Electrolyte Disorders - borderline controlled with the following disturbances: hypokalemia and hypomagnesemia This consult will be staffed with the following attending physician: Dr Zamora. Please page the on-call four roll calender operator with any further questions. I spent 30 minutes performing the following components of the encounter (on the day of the encounter): reviewing History, examining the patient, reviewing imaging and/or labs, Independently interpreting echocardiogram, ECG and/or other imaging results, ordering tests or procedures, counseling the patient and family/caregiver, and communicating with other health healthcare facility administrator. Greater than 50% of the time spent [...] (CMS/HCC) Chronic respiratory failure 2019 Clotting disorder ([facility]/HCC) Congenital malformation COPD (chronic obstructive pulmonary disease) ([facility]/HCC) 2019 Coronary artery disease CTS (carpal tunnel syndrome) Dental disease Depression Diabetes mellitus type I ([facility]/HCC) Disease of thyroid gland Eczema Fracture of [...] Was ableto get patient in with [facility] ophthalmology right after our clinic appointment [...] CARDIAC PACEMAKER PLACEMENT N/A Pacemaker Placement from [facility] CARPAL TUNNEL RELEASE N/A Neuroplasty Decompression Median Nerve At Carpal Tunnel from [facility] CERVICAL BIOPSY W/ LOOP ELECTRODE EXCISION 2010 SECTION, CLASSIC 1976, 1979 SECTION, LOW TRANSVERSE N/A Section from [facility] COLONOSCOPY N/A Complete Colonoscopy from [facility] CORONARY ARTERY BYPASS GRAFT N/A CABG from [facility] EYE SURGERY N/A Eye Surgery from [facility] FRACTURE SURGERY SPINE SURGERY THORACENTESIS TOE SURGERY Left 02/07/2024 hematoma removal of upper skin on L big toe TONSILLECTOMY N/A Tonsillectomy from [facility] Cosigned by Brenden Zamora MD at 08/19/2024 [...] monitoring. Date INR Dose 08/14 2.6 Hold 08/15 2.2 Hold 08/16 2.2 Hold 08/17 1.5 [...] No Patient Education : Neeru Carballo PharmD, [facility] Internal Medicine Clinical Pharmacist * [...] Center 08/19/2024 1:30 PM Lavern Shoemaker MD [facility] 09/08/2024 11:20 AM Alisa Kunz, DO [facility] 10/07/2024 4:00 PM [facility]UD[facility]O ECHO 1 ECHOCHG [facility] 10/27/2024 1:40 PM Anne-Marie Kolb APRN ENDOTFBNBR [place] 11/29/2024 10:20 AM Alisa Kunz, DO [facility] 02/02/2025 10:30 AM Sadiq Osborne [facility] Associated attestation - Kenneth James MD - 08/17/2024 4:37 PM EDT I saw and evaluated the patient with the medical/MEDICARE COMPLIANCE AUDITOR/PA student. I discussed the case with the medical/MEDICARE COMPLIANCE AUDITOR/PA student and agree with the findings and plan as documented. I personally performed the Examand Medical Decision Making. Acute threat to life/bodily function: Acute hypoxic respiratory failure. High risk: Drug therapy requiring intensive monitoring for toxicity: Lasix, monitoring urine outputand electrolytes. * Progress Notes - Boby Rouse, DIRECTOR FUNDS DEVELOPMENT - 08/17/2024 10:47 AM EDT Subjective No [...] Dr. Edward Bojorquez. Boby Rouse APRN Pager: [phone] * Procedures - Boby Rouse APRN - [...] to water seal overnight then switch to -[id number] suction tomorrow morning. Hold NSAIDS and steroids [...] further ophthalmologic intervention. * Progress Notes - Tk Hale - 08/16/2024 12:41 PM EDT Images from [...] Center 08/19/2024 1:30 PM Lavern Shoemaker MD [facility] 09/08/2024 11:20 AM Alisa Kunz, DO [facility] 10/07/2024 4:00 PM ASTUD[facility]O ECHO 1 ECHOCHG [facility] 10/27/2024 1:40 PM Anne-Marie Kolb APRN ENDOTFBN[facility] [place] 11/29/2024 10:20 AM Alisa Kunz, [facility] 02/02/2025 10:30 AM Sadiq Osborne [facility] Associated attestation - Doron Thayer MD - 08/16/2024 6:59 PM EDT I saw and evaluated the patient with the medical/MEDICARE COMPLIANCE AUDITOR/PA student. I discussed the case with the medical/MEDICARE COMPLIANCE AUDITOR/PA student and agree with the findings and [...] She is following with Rheumatology at Dr. Mary for SLE. 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 She is on plaqunil and MMF. 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 Results Review {Vanishing Link Review Results :[id number] I have reviewed the latest lab and [...] discussed with Dr. Edward Bojorquez. Boby Rouse, DIRECTOR FUNDS DEVELOPMENT Pager: [phone] [1] Current Facility-Administered Medications Medication Dose Route [...] Arben Ibarra MD 80 mg at 08/16/24 0517 folic acid (Folvite) tablet 1 mg 1 mg Oral Daily Arben Ibarra MD 1 mg at 08/16/24 0822 furosemide (Lasix) injection 40 mg 40 mg Intravenous q8h Arben Ibarra MD 40 mg at 08/16/24 0823 gabapentin (Neurontin) capsule 300 mg 300 mg [...] AM Arben Ibarra MD 125 mcg at08/16/24 0517 melatonin tablet 6 mg 6 mg Oral Nightly PRN July Vargas MD 6 mg at 08/15/242009 metoprolol succinate XL (Toprol-XL) 24 hr tablet 25 mg 25 mg Oral Daily Arben Ibarra MD 25 mg at 08/16/24 08 mycophenolate (Cellcept) capsule 1,000 mg 1,000 mg Oral BID Doron Thayer MD 1,000 mg at 145 sodium chloride 0.9 % flush 10 mL [...] from the original note were not included. [id number] Warfarin Brand Name(s): Coumadin??, Jantoven??; also available [...] doctor or pharmacist will give you the show operations supervisor's patient information sheet (Medication Guide) when you begin treatment with warfarin and each time you refill your prescription. Read the information carefully and ask your doctor or pharmacist if you have any questions. You can also visit the Food and Drug Administration (FDA) website (https://www.fda.gov/downloads/Drugs/DrugSafety/roi390224.pdf) or the show operations supervisor's website to obtain the Medication Guide. Talk [...] Echinacea, garlic, Ginkgo biloba, ginseng, goldenseal, and Croswell's wort; omeprazole (Prilosec); famotidine (Pepcid AC); aspirin [...] amounts of vitamin K-containing food on a nbyb-sn-awnu basis. Do not eat large amounts of [...] and out of their sight and reach. https://www.Paired HealthndTherasis.org What should I do in case of OVERDOSE? In case of overdose, call the poison control helpline at . Information is also available online at https://www.poisonhelp.org/help. If the victim has collapsed, had a seizure, has trouble breathing, or can't be awakened, immediately call emergency services at 776. Symptoms of overdose may include the following: [...] of all of the prescription and nonprescription (dkrz-yxa-gafhgfk) medicines you are taking, as well as [...] or pharmacist about specific clinical use. The [place] [employer] represents that the information provided hereunder was formulated with a reasonable standard of care, and in conformity with professional standards in the field. The [place] [employer] makes no representations or warranties, express or implied, including, but not limited to, any implied warranty of merchantability and/or fitness for a particular purpose, with respect to such information and specifically disclaims all such warranties. Users are advised that decisions regarding drug therapy are complex medical decisions requiring the independent, informed decision of an appropriate health manager career, and the information is provided for informational purposes only. The entire monograph for a drug should be reviewed for a thorough understanding of the drug's actions, uses and side effects. The [place] [employer] does not endorse or recommend the use of any drug.The information is not a substitute for medical care. AHFS?? Patient Medication Information?. ?? Copyright, 2023. The [place] [employer]-System Pharmacists??, [address], [address], [place], [place]. All Rights Reserved. Duplication for commercial use must be authorized by [facility]. Selected Revisions: August 22, 2016. AHFS?? Patient Medication Information?. ?? Copyright, 2024 * Progress Notes - Yvonne Carballo, PharmD - 08/16/2024 10:46 AM EDT Antithrombosis Stewardship Pharmacist to Dose Warfarin Management Doron Felipe is a 74 y.o. female who has been consulted for warfarin dosing and monitoring. Date INR Dose 6/7 2.6 hold for thoracentesis 68 2.2 hold for thoracentesis 6/9 2.2 hold for thoracentesis Current Hematologic Labs [...] No Patient Education : Neeru Carballo PharmD, [facility] Internal Medicine Clinical Pharmacist * Progress Notes [...] Skin cancer (2023), Sleep apnea, obstructive, Stroke (CMS/[facility]), Systemic lupus erythematosus, unspecified ([facility]), Varicella, and Visual impairment. Past Surgical History [...] Chair since being admitted to the hospital. Space Control Supervisor (if applicable) HOME LIVING/SET-UP Lives With Spouse [...] only (use of w/c in community) Mobility Jackson Independent gait with device History of Falls [...] Treatment Minutes 23 BED MOBILITY Level of Jackson Physical/Non- physical Assist Adaptive Equipment Utilized Scooting/ Bridging Stand-by assist (to scoot towards EOB) Verbal Cues Bed rails Supine to Sit Stand-by assist Verbal Cues Bed rails Sit to Supine Stand-by assist Verbal Cues Bed rails Interventions PT cued for BLE sequencing toward edge of bed along with self monitoring of symptoms with positional changes. TRANSFERS Level of Jackson Physical/Non- physical Assist Adaptive Equipment Utilized Sit [...] Weight shift posterior to midline Level of Jackson Balance Support Interventions Static Sit Standby assist Feet supported, Right upper extremity support, Left upper extremity support Dynamic Sit Standby assisst Feet supported Static Stand Contact guard Right upper extremity support, Left upper extremity support (via RW) Dynamic Stand Contact guard Right upper extremity support, Left upper extremity support (RW) AMBULATION Level of Jackson Distance Adaptive Equipment Utilized Ambulation Contact guard assist 50ft Rolling walker Comments Patient ambulates with functional dawn and forward flexed posture. PT cued for upright posture and educated on paced activity and therapeutic rest breaks with increased fatigue. Patient reported 9/10 modified RPE following ambulation. Vitals stable throughout. PT presence was necessary for: * monitoring patient vital sign stability STANDARDIZED ASSESSMENTS [facility] 6-Clicks Mobility Assessment Difficulty patient has turning [...] 3-5 steps with a railing?: A little [facility] 6-Clicks Mobility Assessment Total : 20 ASSESSMENT [...] congestive heart failure, unspecified heart failure type ([facility]/HCC) 3. Shortness of breath Procedures Past Medical History Patient has a past medical history of 2019-nCoV acute respiratory disease (05/07/2022), Alcohol use, Allergic (1972), Anemia, Anxiety, Arthritis, Asthma, Cellulitis (02/13/2024), Cellulitis of right leg (02/12/2024), CHF (congestive heart failure) ([facility]), Chronic respiratory failure (2019), Clotting disorder ([facility]/HCC), Congenital malformation, COPD (chronic obstructive pulmonary disease) ([facility]/HCC) (2018), Coronary artery disease, CTS (carpal tunnel syndrome), Dental disease, Depression, Diabetes mellitus type I ([facility]/HCC), Disease of thyroid gland, Eczema, Fracture of left proximal fibula (04/09/2021), Heart disease, Hepatitis B (1960), HL (hearing loss), Hypertension, Hyperthyroidism (1960), Hypothyroidism (1960), Infectious viral hepatitis, Myocardial infarction (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), Varicella, and Visual impairment. Past Surgical History [...] only (use of w/c in community) Mobility Jackson Independent gait with device History of Falls [...] Touch Sensation Intact BED MOBILITY Level of Jackson Physical/Non-physical Assist Adaptive Equipment Utilized Scooting/ Bridging Stand-by assist (to scoot towards EOB) Verbal Cues Bed rails Supine to Sit Stand-by assist Verbal Cues Bed rails Sit to Supine Stand-by assist Verbal Cues Bed rails TRANSFERS Level of Jackson Physical/Non-physical Assist Adaptive Equipment Utilized Sit to [...] Weight shift posterior to midline Level of Jackson Balance Support Static Sit Standby assist Feet supported, Right upper extremity support, Left upper extremity support Dynamic Sit Standby assisst Feet supported Static Stand Contact guard Right upper extremity support, Left upper extremity support (via RW) Dynamic Stand Contact guard Right upper extremity support, Left upper extremity support (via RW) STANDARDIZED ASSESSMENTS [facility] 6-Click Daily Activities Help from Other: Don/Doff Regular Lower Body Clothings: Little Help From Other: Bathing: Little Help From Other: Toileting: Little Help From Other: Don/Doff Upper Body Clothings: Little Help From Other: Grooming: Little Help From Other: Eating Meals: None [facility] 6 Click - Daily Activities Score: [...] needed areas of treatment space. Level of Jackson Interventions Grooming SBA, Setup Edge of bed [...] and each exercise reviewed. Pt verbalized understanding. [employer] Access Details (if appropriate) Access Code: [email or web address] URL: [email or web address] Date: 08/16/24 Exercises Included - Seated Shoulder [...] modified independence. 2 weeks OT Goal 3: Patietn will [...] Note Doron Felipe 74 y.o. female CSN: [id number] Admission: 08/14/2024 3:16 PM Primary Problem: Acute on chronic hypoxic respiratory failure Supervisor Welding Equipment Repairer reviewed chart and spoke with patient via phone to complete this Initial Case Management Assessment. PCP: Alisa Kunz DO Emergency Contact: Extended Emergency Contact Information Primary Emergency Contact: Ruthie Jamil Mobile Relation: Daughter Preferred language: French Space Control Supervisor needed? No Secondary Emergency Contact: Doron Felipe Address: [address] [place] [address] Mobile Relation: Spouse Insurance: Primary Visit Coverage Payer Plan Sponsor Code Group Number Group Name [facility] MEDICARE [facility] MEDICARE REPLACEMENT [id number] Primary Visit Coverage Subscriber Subscriber ID Subscriber Name Subscriber SSN Subscriber Address [id number] DORON FELIPE FESTUS [id number] [place] [address] Patient information: Primary Caregiver: Family Support System: Immediate family, Extended family Daily Living Activities: Functional Status: Maximum assistance Living Arrangements: Family Type of Residence: Private residence, Single Level [address] [facility] [address] Smoker in the Home?: No Current DME: Equipment Currently Used at Home: wheelchair, manual, walker, rolling, oxygen, cane, straight, commode chair, shower chair Current DME Provider: Pt reported having HH previous with [facility]. Pt utilize [facility] for [phone] Income Information: Income Source: Retired Income/Expense Information: [...] previous with [facility]. Pt utilize [facility] for [phone] Living Will/Advance Directive/Power of Tire Stripper /Guardian: Unable to assess: No Have you reviewed your Advance Directive and is it valid for this stay?: Yes Advance Directive: Patient has advance directive, copy in chart Type of Healthcare Directive: Durable power of photoengraver apprentice for health care Information Provided on Healthcare Directives: No Pre-existing DNR/DNI Order: No Patient Requests Assistance: No Additional Comments: SW introduced himself and CM role. Pt confirmed demographics, PCP, EC and insurance on face sheet are accurate. Pt lives at [address], [place] with her Doron Felipe. Pt reported herhome [...] 02 at home that is provided by [employer]. [employer] number is [phone]/Address: [address], [place]. Pt reported that she pays for Private Caregiver. Pt reported private caregiver name is Mrs. Quick.Pt reported that she utilize [facility] for services and reported to SW that she would like to utilize them again if needed. Preferred pharmacy- [facility] - [place] - [address] [place] [address] S Pt's spouse /family to provide transportation upon discharge. Pt reported no issues with Housing, Food, Utilities, Transportation or Safety issues at this time. Pt reported their highest level of education is College. SW will continue to follow and assist as needed. DEVONTE Morales, HYDRAULIC SPINNER * Progress Notes - [facility] - [...] Center 08/19/2024 1:30 PM Lavern Shoemaker MD [facility] 09/08/2024 11:20 AM Alisa Kunz, [facility] 10/07/2024 4:00 PM [facility] 1 [facility] 10/27/2024 1:40 PM Anne-Marie Kolb, DIRECTOR FUNDS DEVELOPMENT [facility] 11/29/2024 10:20 AM Alisa Kunz, [facility] 02/02/2025 10:30 AM Sadiq Osborne MBBS [facility] Associated attestation - Doron Thayer MD - 08/15/2024 6:38 PM EDT I saw and evaluated the patient with the medical/MEDICARE COMPLIANCE AUDITOR/PA student. I discussed the case with the medical/MEDICARE COMPLIANCE AUDITOR/PA student and agree with the findings and [...] Note Doron Felipe 74 y.o. female CSN: [id number] Admission: 08/14/2024 3:16 PM Primary Problem: Acute [...] on their progress and discharge plan. Nathan Lima, INDUSTRIAL WASTE TREATMENT TECHNICIAN, HYDRAULIC SPINNER * Hospital Course - [facility] - 08/15/2024 8:53 AM EDT Doron Felipe is a 74-year-old woman with a PMH significant for SLE on Plaquenil [facility], chronic bl pleural effusions, chronic hypoxic respiratory [...] AM EDT Patient given orange juice. Jacinta Celestin, EVITA 08/15/24 0528 * Progress Notes - Shawna [...] thoracentesis on Wednesday 08/16. ok w/ stopping SQH. -D/w patient and [...] 08/14/2024 5:27 PM EDTAssociated Order(s): Consult to [facility] Consult to [facility] Consult performed by: Arben Ibarra MD [...] followed -previous Pulmonary evaluations [facility]ology at [facility] concluded that her effusion is probably associated [...] Code Status Full Code Arben Ibarra MD [facility] Medicine [1] Social History Tobacco Use [...] Nontoxic) Heart disease Other Gracy Marry Neville [3] [START ON 08/15/2024] aspirin, 81 [...] Complaint Patient presents with Shortness of Breath [facility] NOTE Doron Felipe is a 74 y.o. [...] patient after transfer to Main ED from [facility]. I personally performed my own history, ROS, and physical. I agree with the above [facility] documentation with the following additions/exceptions: Doron [...] chest pain, n/v. History provided by: Patient park interpreter used: No Patient History Past Medical History[1] [...] Ordering Provider 08/14/24 1447 [facility]47 [facility] 08/14/24 1447 Troponin now and 120 [facility] 08/14/24 1447 CBC w/diff STAT Final result [facility] 08/14/24 1447 [facility]/14/24 1447 XR Chest 1 View One time imaging In [facility] 08/14/24 1427 EKG now - STAT (adult) [...] right leg 02/12/2024 CHF (congestive heart failure) ([facility]) Chronic respiratory failure 2019 Clotting disorder ([facility]) Congenital malformation COPD (chronic obstructive pulmonary disease) ([facility]) 2019 Coronary artery disease CTS (carpal tunnel syndrome) Dental disease Depression Diabetes mellitus type I ([facility]) Disease of thyroid gland Eczema Fracture of left proximal fibula 04/09/2021 - Left proximal fibula fracture on 02/2021 after a mechanical fall. - Established with orthopedic surgery, no surgical intervention, WBAT. Heart disease Hepatitis B 1960 HL (hearing loss) Hypertension Hyperthyroidism 1960 Hypothyroidism 1960 Infectious viral hepatitis Myocardial infarction ([facility]) Peripheral neuropathy Pneumonia 06/01 Post-menopausal bleeding 05/08/2021 - Isolated episode of vaginal spotting in early 2021, no recurrence. Was evaluated with OBGYN in 10/2021, no intervention at this time, if recurrence of bleeding will likely require endometrial biopsy. 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 Scleritis. - Needs [facility] eye exam. - Was ableto get patient in with [facility] ophthalmology right after our clinic appointment [...] CARDIAC PACEMAKER PLACEMENT N/A Pacemaker Placement from [facility] CARPAL TUNNEL RELEASE N/A Neuroplasty Decompression Median Nerve At Carpal Tunnel from [facility] CERVICAL BIOPSY W/ LOOP ELECTRODE EXCISION 2010 SECTION, CLASSIC 1976, 1979 SECTION, LOW TRANSVERSE N/A Section from [facility] COLONOSCOPY N/A Complete Colonoscopy from [facility] CORONARY ARTERY BYPASS GRAFT N/A CABG from [facility] EYE SURGERY N/A Eye Surgery from [facility] FRACTURE SURGERY SPINE SURGERY THORACENTESIS TOE SURGERY Left 02/07/2024 hematoma removal of upper skin on L big toe TONSILLECTOMY N/A Tonsillectomy from [facility] [3] Family History Problem Relation Name Age of Onset Conversions - Other Mother gracy stamper alfredito kelin Goiter (Diffuse Nontoxic) Heart disease Mother gracy stamper alfredito kelin Hypertension Mother gracy stamper alfredito kelin Stroke Mother gracy stamper alfredito kelin COPD Mother gracy stamper alfredito kelin Alpha-1 antitrypsin deficiency Mother gracy stamper alfredito kelin Arthritis Father Doron Arriaza [place] Hypercholesterolemia Father Doron E Alfredito Obesity Father Doron E [place] COPD Father Doron E [place] Alcohol abuse Father Doron E [place] Diabetes Sibling Cancer Other Doron E Alfredito [...] Care Team (Late st Contact Info) Description 10/25/2024 10:00 AM EDT Office Visit [facility] Nephrology, Bone & Mineral Metabolism [address], [address] [place] [address] Bryon Brandon MD [address] [place] [phone] 10/27/2024 1:40 PM EDT Office Visit Janette Suazo [facility] Endocrinology [address] [place] [phone] Anne-Marie Kolb, DIRECTOR FUNDS DEVELOPMENT [address] [place] [phone] 12/23/2024 4:00 PM EDT Office Visit [facility] [address] [place] [phone] Lavren Shoemaker MD [address] [place] [address] 02/02/2025 8:40 AM EST Office Visit [facility] Internal Medicine [address], [address] [place] [address] Alisa Kunz, DO [address] [place] [phone] Scheduled Referrals Name Type Priority Associated Diagnoses Order Schedule Discharge Ambulatory referral to [facility] Outpatient Referral Routine Pleural effusion 1 Occurrences [...] POCT glucose meter (08/24/2024 11:36 AM EDT) [facility] POCT Glucose 263(H) 74 - 99 mg/dL 08/24/2024 11:44 AM EDT [facility] Comment:Accuracy of a glucos e result [...] for testing. Comment 08/24/2024 11:44 AM EDT [facility] Child Welfare Assistant ID Partha Zhu 08/25/19 11:44 AM EDT [facility] Device ID [id number] 08/24/2024 11:44 AM EDT [facility] Specimen Type POC Capillary 08/24/2024 11:44 AM EDT [facility] Blood Capillary blood specimen / Unknown 08/24/2024 11:36 AM EDT 08/24/2024 11:44 AM EDT us Doron Thayer MD LAB POINT OF CARE TE ST DOCKED DEVICE UNSOLICITED RESULTS Final Result Performing Organization Address City/[facility]/ZIP Co de Phone Number [facility]ALTH[facility]ARE [facility] [address] [place] [address] * (ABNORMAL) POCT glucose meter (08/24/2024 7:37 AM EDT) [facility] POCT Glucose 440(H) 74 - 99 mg/dL [...] for testing. Comment 08/24/2024 7:41 AM EDT [facility] Child Welfare Assistant ID Partha Zhu 08/25/19 7:41 AM EDT [facility] Device ID [id number] 08/24/2024 7:41 AM EDT [facility] Specimen Type POC Capillary 08/24/2024 7:41 AM EDT [facility] Blood Capillary blood specimen / Unknown 08/24/2024 7:37 AM EDT 08/24/2024 7:41 AM EDT us Doron Thayer MD LAB POINT OF CARE TE ST DOCKED DEVICE UNSOLICITED RESULTS Final Result [facility] [address] [place] [address] * (ABNORMAL) Prothrombin Time/INR (08/24/2024 3:43 AM EDT) Prothrombin Time 16.6(H) 12.0 - 14.3 sec [...] INR 2.5 to 3.5 Prevention of recurrent [place] INR 2.5 to 3.5 us Kenneth James MD LAB BLOOD ORDERABLES Final Res ult [facility] [address] [place] [address] * (ABNORMAL) Basic metabolic panel (08/24/2024 3:43 [...] [facility] [address] [place] [id number] * POCT glucose meter (08/23/2024 7:09 PM EDT) POCT Glucose 96 74 - 99 mg/dL [...] 08/23/2024 7:11 PM EDT [facility] Child Welfare Assistant ID Veronica Kellogg 025 7:11 PM EDT [facility] Device ID [id number] 08/23/2024 7:11 PM EDT [facility] Specimen Type POC Capillary 08/23/2024 7:11 PM EDT [facility] Blood Capillary blood specimen / Unknown 08/23/2024 7:09 PM EDT 08/23/2024 7:11 PM EDT Kenneth James MD LAB POINT OF CARE TE ST DOCKED DEVICE UNSOLICITED RESULTS Final Result Performing Organization Address City/[facility]/ZIP Co de Phone Number [facility] [address] [place] [address] * (ABNORMAL) POCT glucose meter (08/23/2024 3:58 PM EDT) POCT Glucose 123(H) 74 - 99 [...] 08/23/2024 4:04 PM EDT [facility] Child Welfare Assistant ID Guillermo Marquez 08/24/19 4:04 PM EDT [facility] Device ID [id number] 08/23/2024 4:04 PM EDT [facility] Specimen Type POC Capillary 08/23/2024 4:04 PM EDT [facility] Blood Capillary blood specimen / Unknown 08/23/2024 3:58 PM EDT 08/23/2024 4:04 PM EDT Kenneth James MD LAB POINT OF CARE TE ST DOCKED DEVICE UNSOLICITED RESULTS Final Result [facility] [address] [place] [address] * XR Chest 1 View (08/23/2024 2:20 [...] Edgar Welch MD on 08/23/2024 2:22 PM Boby Rouse DIRECTOR FUNDS DEVELOPMENT IMG XR PROCEDURES Final Res ult * (ABNORMAL) POCT glucose meter (08/23/2024 11:41 AM EDT) POCT Glucose 223(H) 74 - 99 mg/dL [...] for testing. Comment 08/23/2024 11:43 AM EDT [facility] Child Welfare Assistant ID Marilee Fabian 08/23/2024 11:43 AM EDT [facility] Device ID [id number] 08/23/2024 11:43 AM EDT [facility] Specimen Type POC Capillary 08/23/2024 11:43 AM EDT [facility] Blood Capillary blood specimen / Unknown 08/23/2024 11:41 AM EDT 08/23/2024 11:43 AM EDT Kenneth James MD LAB POINT OF CARE TE ST DOCKED DEVICE UNSOLICITED RESULTS Final Result Performing Organization Address City/[facility]/ZIP Co de Phone Number [facility] [address] [place] [address] * (ABNORMAL) POCT glucose meter (08/23/2024 7:37 AM EDT) POCT Glucose 156(H) 74 - 99 mg/dL 08/23/2024 7:38 AM EDT [facility] Comment:Accuracy of a [...] for testing. Comment 08/23/2024 7:38 AM EDT [facility] Child Welfare Assistant ID Marjorie Cortez 08/24/19 7:38 AM EDT [facility] Device ID [id number] 08/23/2024 7:38 AM EDT [facility] Specimen Type POC Capillary 08/23/2024 7:38 AM EDT [facility] Blood Capillary blood specimen / Unknown 08/23/2024 7:37 AM EDT 08/23/2024 7:38 AM EDT Kenneth James MD LAB POINT OF CARE TE ST DOCKED DEVICE UNSOLICITED RESULTS Final Result [facility] [address] [place] [address] * (ABNORMAL) Prothrombin Time/INR (08/23/2024 3:19 AM [...] INR 2.5 to 3.5 Prevention of recurrent [place] INR 2.5 to 3.5 us Kenneth James MD LAB BLOOD ORDERABLES Final Res ult [facility] [address] [place] [address] * (ABNORMAL) Basic metabolic panel (08/23/2024 3:19 [...] - 29 mmol/L 08/23/2024 4:06 AM EDT [facility] Anion Gap 7 6 - 16 [...] [facility] [address] [place] [address] * (ABNORMAL) POCT glucose meter (08/23/2024 3:08 AM EDT) POCT Glucose 261(H) 74 - 99 mg/dL 08/23/2024 3:09 AM EDT [facility] Comment:Accuracy of a [...] Comment 08/23/2024 3:09 AM EDT [facility] Child Welfare Assistant ID Karson Kaufman 08/24/19 3:09 AM EDT [facility] Device ID [id number] 08/23/2024 3:09 AM EDT [facility] Specimen Type POC Capillary 08/23/2024 3:09 AM EDT [facility] Blood Capillary blood specimen / Unknown 08/23/2024 3:08 AM EDT 08/23/2024 3:09 AM EDT us Kenneth James MD LAB POINT OF CARE TE ST DOCKED DEVICE UNSOLICITED RESULTS Final Result Performing Organization Address [facility] Co de Phone Number [facility] [address] [place] [address] * (ABNORMAL) POCT glucose meter (08/22/2024 9:36 PM EDT) [facility] POCT Glucose 299(H) 74 - 99 mg/dL 08/22/2024 9:37 PM EDT [facility] Comment:Accuracy of [...] Comment 08/22/2024 9:37 PM EDT [facility] Child Welfare Assistant ID Puja Le 08/22/2024 9:37 PM EDT [facility] Device ID [id number] 08/22/2024 9:37 PM EDT [facility] Specimen Type POC Capillary 08/22/2024 9:37 PM EDT [facility] Blood Capillary blood specimen / Unknown 08/22/2024 9:36 PM EDT 08/22/2024 9:37 PM EDT Kenneth James MD LAB POINT OF CARE TE ST DOCKED DEVICE UNSOLICITED RESULTS Final Result Performing Organization Address [facility] Co de Phone Number [facility] [address] [place] [address] * (ABNORMAL) POCT glucose meter (08/22/2024 8:19 PM EDT) [facility] POCT Glucose 248(H) 74 - 99 mg/dL 08/22/2024 8:20 PM EDT [facility] Comment:Accuracy of [...] for testing. Comment 08/22/2024 8:20 PM EDT [facility] Child Welfare Assistant ID Karson Kaufman 08/23/19 8:20 PM EDT [facility] Device ID [id number] 08/22/2024 8:20 PM EDT [facility] Specimen Type POC Capillary 08/22/2024 8:20 PM EDT [facility] Blood Capillary blood specimen / Unknown 08/22/2024 8:19 PM EDT 08/22/2024 8:20 PM EDT us Kenneth James MD LAB POINT OF CARE TE ST DOCKED DEVICE UNSOLICITED RESULTS Final Result [facility] [address] [place] [address] * (ABNORMAL) Basic metabolic panel (08/22/2024 5:53 [...] 5:53 PM EDT 08/22/2024 5:58 PM EDT Kenneth James MD LAB BLOOD ORDERABLES Final Res ult [facility] [address] [place] [address] * (ABNORMAL) POCT glucose meter (08/22/2024 5:46 PM EDT) [facility] POCT Glucose 102(H) 74 - 99 mg/dL 08/22/2024 5:47 PM EDT [facility] Comment:Accuracy of [...] 08/22/2024 5:47 PM EDT [facility] Child Welfare Assistant ID Kosta Dugan 08/23/19 5:47 PM EDT [facility] Device ID [id number] 08/22/2024 5:47 PM EDT [facility] Specimen Type POC Capillary 08/22/2024 5:47 PM EDT [facility] Blood Capillary blood specimen / Unknown 08/22/2024 5:46 PM EDT 08/22/2024 5:47 PM EDT Kenneth James MD LAB POINT OF CARE TE ST DOCKED DEVICE UNSOLICITED RESULTS Final Result [facility] [address] [place] [address] * POCT glucose meter (08/22/2024 4:25 PM EDT) Pathologist [facility] POCT Glucose 78 74 - 99 mg/dL [...] for testing. Comment 08/22/2024 4:26 PM EDT [facility] Child Welfare Assistant ID La Tracey 08/22/2024 4:26 PM EDT [facility]ARE LAB Device ID [id number] 08/22/2024 4:26 PM EDT [facility] Specimen Type POC Capillary 08/22/2024 4:26 PM EDT [facility] Blood Capillary blood specimen / Unknown 08/22/2024 4:25 PM EDT 08/22/2024 4:26 PM EDT Kenneth James MD LAB POINT OF CARE TE ST DOCKED DEVICE UNSOLICITED RESULTS Final Result [facility] [address] [place] [address] * XR Chest 1 View (08/22/2024 11:31 [...] for testing. Comment 08/22/2024 11:20 AM EDT [facility] Child Welfare Assistant ID AlexyLa 08/22/2024 11:20 AM EDT [facility] Device ID [id number] 08/22/2024 11:20 AM EDT [facility] Specimen Type POC Capillary 08/22/2024 11:20 AM EDT [facility] Blood Capillary blood specimen / Unknown 08/22/2024 11:18 AM EDT 08/22/2024 11:20 AM EDT Kenneth James MD LAB POINT OF CARE TE ST DOCKED DEVICE UNSOLICITED RESULTS Final Result [facility] [address] [place] [address] * (ABNORMAL) POCT glucose meter (08/22/2024 7:30 [...] Comment 08/22/2024 7:32 AM EDT [facility] Child Welfare Assistant ID AlexyLa torres 08/22/2024 7:32 AM EDT [facility] Device ID [id number] 08/22/2024 7:32 AM EDT [facility] Specimen Type POC Capillary 08/22/2024 7:32 AM EDT [facility] Blood Capillary blood specimen / Unknown 08/22/2024 7:30 AM EDT 08/22/2024 7:32 AM EDT Kenneth James MD LAB POINT OF CARE TE ST DOCKED DEVICE UNSOLICITED RESULTS Final Result Performing Organization Address City/State/[facility] de Phone Number [facility] [address] [place] [address] * (ABNORMAL) Prothrombin Time/INR (08/22/2024 6:01 AM EDT) [facility] Prothrombin Time 14.4(H) 12.0 - 14.3 sec [...] INR 2.5 to 3.5 Prevention of recurrent [place] INR 2.5 to 3.5 us Kenneth James MD LAB BLOOD ORDERABLES Final Res ult [facility] [address] [place] [address] * (ABNORMAL) Basic Metabolic Panel, Plasma (08/22/2024 [...] ORDERABLES Final Res ult Performing Organization Address City/[facility]/ZIP Co de Phone Number [facility] [address] [place] [address] * (ABNORMAL) POCT glucose meter (08/21/2024 9:26 [...] Comment 08/21/2024 9:28 PM EDT [facility] Child Welfare Assistant ID Hazel Keller 08/22/19 9:28 PM EDT [facility] Device ID [id number] 08/21/2024 9:28 PM EDT [facility] Specimen Type POC Capillary 08/21/2024 9:28 PM EDT [facility] Blood Capillary blood specimen / Unknown 08/21/2024 9:26 PM EDT 08/21/2024 9:28 PM EDT us Kenneth James MD LAB POINT OF CARE TE ST DOCKED DEVICE UNSOLICITED RESULTS Final Result Performing Organization Address City/[facility]/ZIP Co de Phone Number [facility] [address] [place] [address] * Lavender Top (08/21/2024 5:23 PM EDT) Pathologist [facility] Extra Hold for add-ons 08/21/2024 9:02 PM EDT [facility] Comment:Auto resulted. Blood Venous blood specimen / Unknown 08/21/2024 5:23 PM EDT 08/21/2024 6:26 PM EDT Kenneth James MD LAB BLOOD ORDERABLES Final Res ult [facility] [address] [place] [address] * (ABNORMAL) Basic metabolic panel (08/21/2024 5:23 [...] [facility] [address] [place] [address] * POCT glucose meter (08/21/2024 4:18 PM EDT) [facility] POCT Glucose 95 74 - 99 mg/dL 08/21/2024 4:23 PM EDT [facility] Comment:Accuracy of [...] 08/21/2024 4:23 PM EDT [facility] Child Welfare Assistant ID Alysia Werner 08/22/19 4:23 PM EDT [facility] Device ID [id number] 08/21/2024 4:23 PM EDT [facility] Specimen Type POC Capillary 08/21/2024 4:23 PM EDT [facility] Blood Capillary blood specimen / Unknown 08/21/2024 4:18 PM EDT 08/21/2024 4:23 PM EDT Kenneth James MD LAB POINT OF CARE TE ST DOCKED DEVICE UNSOLICITED RESULTS Final Result [facility] [address] [place] [address] * (ABNORMAL) POCT glucose meter (08/21/2024 11:24 AM EDT) [facility] POCT Glucose 330(H) 74 - 99 mg/dL [...] 08/21/2024 11:27 AM EDT [facility] Child Welfare Assistant ID Alysia Werner 08/22/19 11:27 AM EDT [facility] Device ID [id number] 08/21/2024 11:27 AM EDT [facility] Specimen Type POC Capillary 08/21/2024 11:27 AM EDT [facility] Blood Capillary blood specimen / Unknown 08/21/2024 11:24 AM EDT 08/21/2024 11:27 AM EDT Kenneth James MD LAB POINT OF CARE TE ST DOCKED DEVICE UNSOLICITED RESULTS Final Result [facility] [address] [place] [address] * (ABNORMAL) POCT glucose meter (08/21/2024 8:05 AM EDT) POCT Glucose 332(H) 74 - 99 mg/dL [...] for testing. Comment 08/21/2024 8:06 AM EDT [facility] Child Welfare Assistant ID Alysia Werner 08/22/19 8:06 AM EDT [facility] LAB Device ID [id number] 08/21/2024 8:06 AM EDT [facility] Specimen Type POC Capillary 08/21/2024 8:06 AM EDT [facility] Blood Capillary blood specimen / Unknown 08/21/2024 8:05 AM EDT 08/21/2024 8:06 AM EDT Kenneth James MD LAB POINT OF CARE TE ST DOCKED DEVICE UNSOLICITED RESULTS Final Result [facility] [address] [place] [address] * XR Chest 1 View (08/21/2024 7:01 AM EDT) Anatomical Region Laterality Modality Chest Digital Radiogra phy Impressions 08/21/2024 2:34 PM EDT Stable small left and increased small right pleural effusion. CRITICAL RESULT: No. COMMUNICATION: Per this written report. Drafted by Amanda Chatman MD on 08/21/2024 2:33 PM Final report signed by mAanda Chatman MD on 08/21/2024 2:34 PM Narrative [...] Amanda Chatman MD on 08/21/2024 2:34 PM Boby Rouse DIRECTOR FUNDS DEVELOPMENT IMG XR PROCEDURES Final Res ult * [...] INR 2.5 to 3.5 Prevention of recurrent [place] INR 2.5 to 3.5 us Kenneth James MD LAB BLOOD ORDERABLES Final Res ult [facility] [address] [place] [address] * (ABNORMAL) Basic metabolic panel (08/21/2024 4:04 [...] 4:04 AM EDT 08/21/2024 4:31 AM EDT Kenneth James MD LAB BLOOD ORDERABLES Final Res ult Performing Organization Address City/[facility]/ZIP Co de Phone Number [facility] [address] [place] [address] * (ABNORMAL) POCT glucose meter (08/21/2024 3:47 AM EDT) POCT Glucose 369(H) 74 - 99 mg/dL 08/21/2024 3:49 AM EDT [facility] Comment:Accuracy of [...] Comment 08/21/2024 3:49 AM EDT [facility]ALTH[facility] Child Welfare Assistant ID Marlene Jain 08/21/2024 3:49 AM EDT [facility]ALTH[facility]ARE LAB Device ID [id number] 08/21/2024 3:49 AM EDT [facility] Specimen Type POC Capillary 08/21/2024 3:49 AM EDT [facility] Blood Capillary blood specimen / Unknown 08/21/2024 3:47 AM EDT 08/21/2024 3:49 AM EDT Kenneth James MD LAB POINT OF CARE TE ST DOCKED DEVICE UNSOLICITED RESULTS Final Result Performing Organization Address City/[facility]/ZIP Co de Phone Number [facility] [address] [place] [address] * (ABNORMAL) POCT glucose meter (08/20/2024 7:51 [...] 08/20/2024 7:52 PM EDT [facility] Child Welfare Assistant ID Karson Kaufman 08/21/19 7:52 PM EDT [facility] Device ID [id number] 08/20/2024 7:52 PM EDT [facility] Specimen Type POC Capillary 08/20/2024 7:52 PM EDT [facility] Blood Capillary blood specimen / Unknown 08/20/2024 7:51 PM EDT 08/20/2024 7:52 PM EDT us Kenneth James MD LAB POINT OF CARE TE ST DOCKED DEVICE UNSOLICITED RESULTS Final Result [facility] [address] [place] [address] * (ABNORMAL) POCT glucose meter (08/20/2024 5:05 PM EDT) [facility] POCT Glucose 217(H) 74 - 99 mg/dL [...] Comment 08/20/2024 5:08 PM EDT [facility] Child Welfare Assistant ID Basia Cole 08/20/2024 5:08 PM EDT [facility] LAB Device ID [id number] 08/20/2024 5:08 PM EDT [facility] Specimen Type POC Capillary 08/20/2024 5:08 PM EDT [facility] Blood Capillary blood specimen / Unknown 08/20/2024 5:05 PM EDT 08/20/2024 5:08 PM EDT us Kenneth James MD LAB POINT OF CARE TE ST DOCKED DEVICE UNSOLICITED RESULTS Final Result Performing Organization Address City/[facility]/ZIP Co de Phone Number [facility] [address] [place] [address] * (ABNORMAL) POCT glucose meter (08/20/2024 12:16 PM EDT) [facility] POCT Glucose 373(H) 74 - 99 mg/dL [...] Comment 08/20/2024 12:18 PM EDT [facility] Child Welfare Assistant ID Basia Cole 08/20/2024 12:18 PM EDT [facility] LAB Device ID [id number] 08/20/2024 12:18 PM EDT [facility] Specimen Type POC Capillary 08/20/2024 12:18 PM EDT [facility] Blood Capillary blood specimen / Unknown 08/20/2024 12:16 PM EDT 08/20/2024 12:18 PM EDT Kenneth James MD LAB POINT OF CARE TE ST DOCKED DEVICE UNSOLICITED RESULTS Final Result Performing Organization Address City/[facility]/ZIP Co de Phone Number [facility] [address] [place] [address] * (ABNORMAL) POCT glucose meter (08/20/2024 8:14 AM EDT) [facility] POCT Glucose 225(H) 74 - 99 mg/dL [...] for testing. Comment 08/20/2024 8:16 AM EDT [facility] Child Welfare Assistant ID Basia Cole 08/20/2024 8:16 AM EDT [facility]ALTH[facility]ARE [facility] Device ID [id number] 08/20/2024 8:16 AM EDT [facility]ALTH[facility]ARE [facility] Specimen Type POC Capillary 08/20/2024 8:16 AM EDT [facility]ALTH[facility] Blood Capillary blood specimen / Unknown 08/20/2024 8:14 AM EDT 08/20/2024 8:16 AM EDT Kenneth James MD LAB POINT OF CARE TE ST DOCKED DEVICE UNSOLICITED RESULTS Final Result [facility] [address] [place] [address] * XR Chest 1 View (08/20/2024 6:58 [...] Muir MD on 08/20/2024 9:55 AM Boby Joel Rouse DIRECTOR FUNDS DEVELOPMENT IMG XR PROCEDURES Final Res ult * (ABNORMAL) POCT glucose meter (08/20/2024 3:23 AM EDT) [facility] POCT Glucose 218(H) 74 - 99 mg/dL 08/20/2024 3:25 AM EDT HEALTHCARE LAB Comment:Accuracy of a [...] for testing. Comment 08/20/2024 3:25 AM EDT HEALTHCARE LAB Child Welfare Assistant ID Karson Kaufman 08/21/19 3:25 AM EDT HEALTHCARE LAB Device ID [id number] 08/20/2024 3:25 AM EDT [facility] Specimen Type POC Capillary 08/20/2024 3:25 AM EDT [facility] Blood Capillary blood specimen / Unknown 08/20/2024 3:23 AM EDT 08/20/2024 3:25 AM EDT Kenneth James MD LAB POINT OF CARE TE ST DOCKED DEVICE UNSOLICITED RESULTS Final Result Performing Organization Address City/State/[facility] Co de Phone Number HEALTHCARE LAB [address] [place] [address] * Prothrombin Time/INR (08/20/2024 1:57 AM EDT) [facility] Prothrombin Time 13.7 12.0 - 14.3 sec [...] INR 2.5 to 3.5 Prevention of recurrent [place] INR 2.5 to 3.5 Kenneth James MD LAB BLOOD ORDERABLES Final Res ult Performing Organization Address City/[facility]/ZIP Co de Phone Number [facility] [address] [place] [address] * (ABNORMAL) Magnesium (08/20/2024 1:57 AM EDT) Magnesium, Plasma 1.8(L) 1.9 - 2.4 mg/dL 08/20/2024 3:18 AM EDT [facility] Blood Venous blood specimen / Unknown Venipuncture / Unknown 08/20/2024 1:57 AM EDT 08/20/2024 2:02 AM EDT Kenneth aJmes MD LAB BLOOD ORDERABLES Final Res ult Performing Organization Address City/[facility]/ZIP Co de Phone Number [facility] [address] [place] [address] * (ABNORMAL) Basic metabolic panel (08/20/2024 1:57 [...] [facility] [address] [place] [address] * (ABNORMAL) POCT glucose meter (08/19/2024 7:49 PM EDT) POCT Glucose 308(H) 74 - 99 mg/dL 08/19/2024 7:51 PM EDT [facility] Comment:Accuracy of a glucos e result [...] for testing. Comment 08/19/2024 7:51 PM EDT HEALTHCARE LAB Child Welfare Assistant ID Karson Kaufman 08/20/19 7:51 PM EDT [facility] Device ID [id number] 08/19/2024 7:51 PM EDT [facility] Specimen Type POC Capillary 08/19/2024 7:51 PM EDT HEALTHCARE LAB Blood Capillary blood specimen / Unknown 08/19/2024 7:49 PM EDT 08/19/2024 7:51 PM EDT Result [facility] Kenneth James MD LAB POINT OF CARE TE ST DOCKED DEVICE UNSOLICITED RESULTS Final Result [facility] [address] [place] [address] * (ABNORMAL) POCT glucose meter (08/19/2024 4:03 PM EDT) POCT Glucose 279(H) 74 - 99 mg/dL [...] for testing. Comment 08/19/2024 4:04 PM EDT HEALTHCARE LAB Child Welfare Assistant ID Michelle Rolle 08/20/19 25 4:04 PM EDT [facility] Device ID [id number] 08/19/2024 4:04 PM EDT [facility]ALTHCARE LAB Specimen Type POC Capillary 08/19/2024 4:04 PM EDT [facility]ALTH[facility] LAB Blood Capillary blood specimen / Unknown 08/19/2024 4:03 PM EDT 08/19/2024 4:04 PM EDT Kenneth James MD LAB POINT OF CARE TE ST DOCKED DEVICE UNSOLICITED RESULTS Final Result [facility] [address] [place] [address] * (ABNORMAL) POCT glucose meter (08/19/2024 11:51 [...] Comment 08/19/2024 11:52 AM EDT HEALTHCARE LAB Child Welfare Assistant ID Ekaterina Gustafson 08/20/19 11:52 AM EDT HEALTHCARE LAB Device ID [id number] 08/19/2024 11:52 AM EDT [facility]ALTH[facility]ARE LAB Specimen Type POC Capillary 08/19/2024 11:52 AM EDT [facility] Blood Capillary blood specimen / Unknown 08/19/2024 11:51 AM EDT 08/19/2024 11:52 AM EDT us Kenneth James MD LAB POINT OF CARE TE ST DOCKED DEVICE UNSOLICITED RESULTS Final Result Performing Organization Address City/State/[facility] Co de Phone Number HEALTHCARE LAB [address] [place] [address] * (ABNORMAL) POCT glucose meter (08/19/2024 8:06 AM EDT) POCT Glucose 254(H) 74 - 99 mg/dL 08/19/2024 8:08 AM EDT [facility]ALTH[facility] Comment:Accuracy of a [...] Comment 08/19/2024 8:08 AM EDT HEALTHCARE LAB Child Welfare Assistant ID Ekaterina Gustafson 08/20/19 8:08 AM EDT HEALTHCARE LAB Device ID [id number] 08/19/2024 8:08 AM EDT [facility]ALTH[facility]ARE LAB Specimen Type POC Capillary 08/19/2024 8:08 AM EDT [facility]ALTH[facility]ARE LAB Blood Capillary blood specimen / Unknown 08/19/2024 8:06 AM EDT 08/19/2024 8:08 AM EDT us Kenneth James MD LAB POINT OF CARE TE ST DOCKED DEVICE UNSOLICITED RESULTS Final Result [facility] [address] [place] [address] * XR Chest 1 View (08/19/2024 7:54 [...] MD on 08/19/2024 8:53 AM Boby Rouse DIRECTOR FUNDS DEVELOPMENT IMG XR PROCEDURES Final Res ult * [...] INR 2.5 to 3.5 Prevention of recurrent [place] INR 2.5 to 3.5 Kenneth James MD LAB BLOOD ORDERABLES Final Res ult Performing Organization Address [facility]/ZIP Co de Phone Number [facility] [address] [place] [address] * (ABNORMAL) Magnesium (08/19/2024 5:00 AM EDT) Magnesium, Plasma 1.7(L) 1.9 - 2.4 mg/dL 08/19/2024 5:47 AM EDT [facility] Blood Venous blood specimen / Unknown Venipuncture / Unknown 08/19/2024 5:00 AM EDT 08/19/2024 5:18 AM EDT Kenneth James MD LAB BLOOD ORDERABLES Final Res ult Performing Organization Address [facility]/ZIP Co de Phone Number [facility] [address] [place] [address] * (ABNORMAL) Basic metabolic panel (08/19/2024 5:00 [...] [facility] [address] [place] [address] * (ABNORMAL) POCT glucose meter (08/19/2024 3:40 AM EDT) POCT Glucose 198(H) 74 - 99 mg/dL 08/19/2024 3:41 AM EDT [facility] Comment:Accuracy of a glucos e result [...] for testing. Comment 08/19/2024 3:41 AM EDT [facility] Child Welfare Assistant ID Veronica Kellogg 025 3:41 AM EDT HEALTHCARE LAB Device ID [id number] 08/19/2024 3:41 AM EDT HEALTHCARE LAB Specimen Type POC Capillary 08/19/2024 3:41 AM EDT [facility]ALTH[facility] Blood Capillary blood specimen / Unknown 08/19/2024 3:40 AM EDT 08/19/2024 3:41 AM EDT Kenneth James MD LAB POINT OF CARE TE ST DOCKED DEVICE UNSOLICITED RESULTS Final Result Performing Organization Address [facility] Co de Phone Number [facility] [address] [place] [address] * (ABNORMAL) POCT glucose meter (08/19/2024 3:05 AM EDT) [facility] POCT Glucose 62(L) 74 - 99 mg/dL [...] for testing. Comment 08/19/2024 3:07 AM EDT [facility] Child Welfare Assistant ID Darin Florez 3:07 AM EDT HEALTHCARE LAB Device ID [id number] 08/19/2024 3:07 AM EDT [facility]ALTHCARE LAB Specimen Type POC Capillary 08/19/2024 3:07 AM EDT [facility] Blood Capillary blood specimen / Unknown 08/19/2024 3:05 AM EDT 08/19/2024 3:07 AM EDT us Kenneth James MD LAB POINT OF CARE TE ST DOCKED DEVICE UNSOLICITED RESULTS Final Result Performing Organization Address City/[facility] Co de Phone Number [facility] [address] [place] [address] * (ABNORMAL) POCT glucose meter (08/19/2024 1:59 AM EDT) Pathologist [facility] POCT Glucose 73(L) 74 - 99 mg/dL 08/19/2024 2:02 AM EDT [facility]ALTHCARE LAB Comment:Accuracy of a [...] Comment 08/19/2024 2:02 AM EDT HEALTHCARE LAB Child Welfare Assistant ID Darin Florez 2:02 AM EDT [facility] Device ID [id number] 08/19/2024 2:02 AM EDT HEALTHCARE LAB Specimen Type POC Capillary 08/19/2024 2:02 AM EDT [facility] Blood Capillary blood specimen / Unknown 08/19/2024 1:59 AM EDT 08/19/2024 2:02 AM EDT Kenneth James MD LAB POINT OF CARE TE ST DOCKED DEVICE UNSOLICITED RESULTS Final Result [facility] [address] [place] [address] * (ABNORMAL) POCT glucose meter (08/19/2024 1:03 AM EDT) [facility] POCT Glucose 51(L) 74 - 99 mg/dL [...] Comment 08/19/2024 1:05 AM EDT HEALTHCARE LAB Child Welfare Assistant ID Veronica Kellogg 025 1:05 AM EDT HEALTHCARE LAB Device ID [id number] 08/19/2024 1:05 AM EDT [facility]ALTH[facility]ARE LAB Specimen Type POC Capillary 08/19/2024 1:05 AM EDT [facility] Blood Capillary blood specimen / Unknown 08/19/2024 1:03 AM EDT 08/19/2024 1:05 AM EDT Kenneth James MD LAB POINT OF CARE TE ST DOCKED DEVICE UNSOLICITED RESULTS Final Result Performing Organization Address [facility] Co de Phone Number HEALTHCARE LAB [address] [place] [address] * (ABNORMAL) POCT glucose meter (08/18/2024 11:00 PM EDT) [facility] POCT Glucose 290(H) 74 - 99 mg/dL 08/18/2024 11:02 PM EDT [facility] Comment:Accuracy of [...] Comment 08/18/2024 11:02 PM EDT HEALTHCARE LAB Child Welfare Assistant ID Veronica Kellogg 025 11:02 PM EDT HEALTHCARE LAB Device ID [id number] 08/18/2024 11:02 PM EDT HEALTHCARE LAB Specimen Type POC Capillary 08/18/2024 11:02 PM EDT [facility] Blood Capillary blood specimen / Unknown 08/18/2024 11:00 PM EDT 08/18/2024 11:02 PM EDT Kenneth James MD LAB POINT OF CARE TE ST DOCKED DEVICE UNSOLICITED RESULTS Final Result Performing Organization Address City/[facility] Co de Phone Number [facility] [address] [place] [address] * (ABNORMAL) POCT glucose meter (08/18/2024 7:39 PM EDT) [facility] POCT Glucose 430(H) 74 - 99 mg/dL [...] for testing. Comment 08/18/2024 7:42 PM EDT [facility] Child Welfare Assistant ID Veronica Kellogg 025 7:42 PM EDT HEALTHCARE LAB Device ID [id number] 08/18/2024 7:42 PM EDT [facility] Specimen Type POC Capillary 08/18/2024 7:42 PM EDT [facility]ALTH[facility]ARE LAB Blood Capillary blood specimen / Unknown 08/18/2024 7:39 PM EDT 08/18/2024 7:42 PM EDT us Kenneth James MD LAB POINT OF CARE TE ST DOCKED DEVICE UNSOLICITED RESULTS Final Result Performing Organization Address City/State/[facility] de Phone Number [facility] [address] [place] [address] * (ABNORMAL) POCT glucose meter (08/18/2024 4:23 PM EDT) [facility] POCT Glucose 365(H) 74 - 99 mg/dL [...] for testing. Comment 08/18/2024 4:32 PM EDT [facility] Child Welfare Assistant ID Partha Zhu 08/19/19 4:32 PM EDT [facility] Device ID [id number] 08/18/2024 4:32 PM EDT [facility] Specimen Type POC Capillary 08/18/2024 4:32 PM EDT [facility]ALTH[facility]ARE LAB Blood Capillary blood specimen / Unknown 08/18/2024 4:23 PM EDT 08/18/2024 4:32 PM EDT us Kenneth James MD LAB POINT OF CARE TE ST DOCKED DEVICE UNSOLICITED RESULTS Final Result [facility] [address] [place] [address] * RIGHT HEART CATHETERIZATION (08/18/2024 4:04 PM [...] then carried out using a 7.5F VIP [place] catheter. Pressures were recorded as the catheter [...] the patient was transferred back to the photo lab specialist holding area in good condition. Study Details [...] Co-Oximetry Mixed Venous (08/18/2024 3:52 PM EDT) POCT Oxyhemoglobin, Mixed Venous 60.8 % 08/18/2024 3:53 PM EDT HEALTHCARE LAB Child Welfare Assistant ID Vijay Ngozi 08/18/2024 3:53 PM EDT HEALTHCARE LAB Device ID [id number] 08/18/2024 3:53 PM EDT HEALTHCARE LAB POCT Sample Site PA 08/18/2024 3:53 PM EDT [facility]ALTH[facility] POCT Total Hemoglobin 9.7(L) 11.2 - 15.7 g/dL 08/18/2024 3:53 PM EDT HEALTHCARE LAB 08/18/2024 3:52 PM EDT 08/18/2024 3:53 PM EDT Kenneth James MD LAB POINT OF CARE TE ST DOCKED DEVICE UNSOLICITED RESULTS Final Result Performing Organization Address City/State/[facility] Co de Phone Number [facility] [address] [place] [address] * (ABNORMAL) POCT CO-Oximitry, Venous (08/18/2024 3:50 PM EDT) POCT OXYHEMOGLOBIN, VENOUS 65 40 - 70 % 08/18/2024 3:50 PM EDT HEALTHCARE LAB Child Welfare Assistant ID Vijay Ngozi 08/18/2024 3:50 PM EDT HEALTHCARE LAB Device ID [id number] 08/18/2024 3:50 PM EDT HEALTHCARE LAB [...] Final Result Performing Organization Address [facility] de Phone Number [facility] [address] [place] [address] * (ABNORMAL) POCT glucose meter (08/18/2024 11:26 AM EDT) Pathologist [facility] POCT Glucose 352(H) 74 - 99 mg/dL [...] for testing. Comment 08/18/2024 11:34 AM EDT [facility] Child Welfare Assistant ID Partha Zhu 08/19/19 11:34 AM EDT [facility] Device ID [id number] 08/18/2024 11:34 AM EDT [facility] Specimen Type POC Capillary 08/18/2024 11:34 AM EDT [facility] Blood Capillary blood specimen / Unknown 08/18/2024 11:26 AM EDT 08/18/2024 11:34 AM EDT Kenneth James MD LAB POINT OF CARE TE ST DOCKED DEVICE UNSOLICITED RESULTS Final Result Performing Organization Address City/[facility] Co de Phone Number [facility] [address] [place] [address] * (ABNORMAL) POCT glucose meter (08/18/2024 7:30 AM EDT) Pathologist [facility] POCT Glucose 267(H) 74 - 99 mg/dL [...] for testing. Comment 08/18/2024 7:43 AM EDT HEALTHCARE LAB Child Welfare Assistant ID Partha Zhu 08/19/19 7:43 AM EDT HEALTHCARE LAB Device ID [id number] 08/18/2024 7:43 AM EDT HEALTHCARE LAB Specimen Type POC Capillary 08/18/2024 7:43 AM EDT [facility]ALTH[facility]ARE LAB Blood Capillary blood specimen / Unknown 08/18/2024 7:30 AM EDT 08/18/2024 7:43 AM EDT us Kenneth James MD LAB POINT OF CARE TE ST DOCKED DEVICE UNSOLICITED RESULTS Final Result [facility] [address] [place] [address] * XR Chest 1 View (08/18/2024 6:25 [...] Macho Muir MD on 08/18/2024 7:47 AM us Boby Joel Rouse DIRECTOR FUNDS DEVELOPMENT IMG XR PROCEDURES Final Res ult * (ABNORMAL) POCT glucose meter (08/18/2024 3:08 AM EDT) POCT Glucose 169(H) 74 - 99 mg/dL 08/18/2024 3:10 AM EDT [facility]ALTH[facility]ARE LAB Comment:Accuracy of a [...] for testing. Comment 08/18/2024 3:10 AM EDT [facility] Child Welfare Assistant ID Veronica Kellogg 025 3:10 AM EDT [facility] Device ID [id number] 08/18/2024 3:10 AM EDT [facility] Specimen Type POC Capillary 08/18/2024 3:10 AM EDT [facility] Blood Capillary blood specimen / Unknown 08/18/2024 3:08 AM EDT 08/18/2024 3:10 AM EDT Kenneth James MD LAB POINT OF CARE TE ST DOCKED DEVICE UNSOLICITED RESULTS Final Result Performing Organization Address City/State/[facility] Co de Phone Number [facility] [address] [place] [address] * (ABNORMAL) POCT glucose meter (08/18/2024 1:52 AM EDT) POCT Glucose 168(H) 74 - 99 mg/dL 08/18/2024 1:54 AM EDT [facility] Comment:Accuracy of [...] for testing. Comment 08/18/2024 1:54 AM EDT [facility] Child Welfare Assistant ID Becca Mittal 1:54 AM EDT HEALTHCARE LAB Device ID [id number] 08/18/2024 1:54 AM EDT HEALTHCARE LAB Specimen Type POC Capillary 08/18/2024 1:54 AM EDT [facility] Blood Capillary blood specimen / Unknown 08/18/2024 1:52 AM EDT 08/18/2024 1:54 AM EDT Kenneth James MD LAB POINT OF CARE TE ST DOCKED DEVICE UNSOLICITED RESULTS Final Result Performing Organization Address [facility]/ZIP Co de Phone Number [facility] [address] [place] [address] * (ABNORMAL) Prothrombin Time/INR (08/18/2024 1:18 AM [...] INR 2.5 to 3.5 Prevention of recurrent [place] INR 2.5 to 3.5 Kenneth James MD LAB BLOOD ORDERABLES Final Res ult [facility] [address] [place] [address] * Magnesium, Plasma (08/18/2024 1:18 AM EDT) Pathologist [facility] Magnesium, Plasma 2.1 1.9 - 2.4 mg/dL 08/18/2024 2:07 AM EDT [facility] Blood Venous blood specimen / Unknown Venipuncture / Unknown 08/18/2024 1:18 AM EDT 08/18/2024 1:37 AM EDT us Kenneth James MD LAB BLOOD ORDERABLES Final Res ult [facility] [address] [place] [address] * (ABNORMAL) Basic Metabolic Panel, Plasma (08/18/2024 1:18 AM EDT) [facility] Glucose, Plasma 211(H) 74 - 99 mg/dL [...] [facility] [address] [place] [address] * (ABNORMAL) POCT glucose meter (08/18/2024 12:56 AM EDT) [facility] POCT Glucose 58(L) 74 - 99 mg/dL 08/18/2024 12:57 AM EDT [facility] Comment:Accuracy of [...] Comment 08/18/2024 12:57 AM EDT HEALTHCARE LAB Child Welfare Assistant ID Veronica Kellogg 025 12:57 AM EDT HEALTHCARE LAB Device ID [id number] 08/18/2024 12:57 AM EDT [facility]ALTHCARE LAB Specimen Type POC Capillary 08/18/2024 12:57 AM EDT [facility]ALTH[facility]ARE [facility] Blood Capillary blood specimen / Unknown 08/18/2024 12:56 AM EDT 08/18/2024 12:57 AM EDT us Kenneth James MD LAB POINT OF CARE TE ST DOCKED DEVICE UNSOLICITED RESULTS Final Result Performing Organization Address City/[facility]/ZIP Co de Phone Number HEALTHCARE LAB [address] [place] [address] * (ABNORMAL) POCT glucose meter (08/17/2024 8:34 PM EDT) [facility] POCT Glucose 344(H) 74 - 99 mg/dL [...] Comment 08/17/2024 8:35 PM EDT [facility]ALTHCARE LAB Child Welfare Assistant ID Veronica Kellogg 025 8:35 PM EDT HEALTHCARE LAB Device ID [id number] 08/17/2024 8:35 PM EDT [facility]ALTH[facility]ARE LAB Specimen Type POC Capillary 08/17/2024 8:35 PM EDT [facility]ALTH[facility]ARE LAB Blood Capillary blood specimen / Unknown 08/17/2024 8:34 PM EDT 08/17/2024 8:35 PM EDT Kenneth James MD LAB POINT OF CARE TE ST DOCKED DEVICE UNSOLICITED RESULTS Final Result [facility] [address] [place] [address] * (ABNORMAL) POCT glucose meter (08/17/2024 6:23 PM EDT) [facility] Signature POCT Glucose 216(H) 74 - 99 mg/dL [...] Comment 08/17/2024 6:24 PM EDT HEALTHCARE LAB Child Welfare Assistant ID Kimberly Hernadez 08/18/19 6:24 PM EDT HEALTHCARE LAB Device ID [id number] 08/17/2024 6:24 PM EDT HEALTHCARE LAB Specimen Type POC Capillary 08/17/2024 6:24 PM EDT [facility]ALTH[facility] LAB Blood Capillary blood specimen / Unknown 08/17/2024 6:23 PM EDT 08/17/2024 6:24 PM EDT Kenneth James MD LAB POINT OF CARE TE ST DOCKED DEVICE UNSOLICITED RESULTS Final Result Performing Organization Address [facility] de Phone Number HEALTHCARE LAB [address] [place] [address] * (ABNORMAL) POCT glucose meter (08/17/2024 4:28 PM EDT) Pathologist [facility] POCT Glucose 149(H) 74 - 99 mg/dL [...] for testing. Comment 08/17/2024 4:39 PM EDT HEALTHCARE LAB Child Welfare Assistant ID Partha Zhu 08/18/19 4:39 PM EDT HEALTHCARE LAB Device ID [id number] 08/17/2024 4:39 PM EDT HEALTHCARE LAB Specimen Type POC Capillary 08/17/2024 4:39 PM EDT [facility] Blood Capillary blood specimen / Unknown 08/17/2024 4:28 PM EDT 08/17/2024 4:39 PM EDT Kenneth James MD LAB POINT OF CARE TE ST DOCKED DEVICE UNSOLICITED RESULTS Final Result Performing Organization Address City/[facility] Co de Phone Number [facility] [address] [place] [address] * (ABNORMAL) POCT glucose meter (08/17/2024 11:43 AM EDT) [facility] POCT Glucose 415(H) 74 - 99 mg/dL [...] 08/17/2024 11:50 AM EDT [facility] Child Welfare Assistant ID Partha Zhu 08/18/19 11:50 AM EDT HEALTHCARE LAB Device ID [id number] 08/17/2024 11:50 AM EDT [facility] Specimen Type POC Capillary 08/17/2024 11:50 AM EDT [facility]ALTH[facility]ARE [facility] Blood Capillary blood specimen / Unknown 08/17/2024 11:43 AM EDT 08/17/2024 11:50 AM EDT Kenneth James MD LAB POINT OF CARE TE ST DOCKED DEVICE UNSOLICITED RESULTS Final Result Performing Organization Address City/State/[facility] Co de Phone Number HEALTHCARE LAB [address] [place] [address] * XR Chest 1 View (08/17/2024 11:26 [...] MD on 08/17/2024 11:45 AM Boby Rouse APRN IMG XR PROCEDURES Final Res ult * [...] diagnosis or interpretation. 08/18/2024 1:12 PM EDT [facility] Pathologist Signature, Body Fluid 08/18/2024 1:12 [...] [facility] [address] [place] [address] * (ABNORMAL) Body Fluid Cell Count w/ Diff - Pleural Right (08/17/2024 10:58 AM EDT) Color, Body fluid Centre LAB HEMATOLOGY METHOD 08/17/2024 6:09 PM EDT [facility] Appearance, Body fluid Cloudy(A) LAB HEMATOLOGY METHOD 08/17/2024 6:09 PM EDT [facility] Volume, Body fluid 90.0 cc LAB HEMATOLOGY METHOD 08/17/2024 6:09 PM EDT [facility] Fluid Container Specimen received in miscellaneous container LAB HEMATOLOGY METHOD 08/17/2024 6:09 PM EDT [facility] Red Blood Cell Count, Body fluid 5,000 uL LAB HEMATOLOGY METHOD 08/17/2024 6:09 PM EDT [facility] Total Nucleated Cell Count, Body fluid 370 uL LAB HEMATOLOGY METHOD 08/17/2024 6:09 PM EDT [facility] Neutrophils %, Body fluid 17 % LAB HEMATOLOGY METHOD 08/17/2024 6:09 PM EDT [facility] Lymphocytes %, Body fluid 37 % LAB HEMATOLOGY METHOD 08/17/2024 6:09 PM EDT [facility] Monocytes/Macr ophages %, Body fluid 44 % LAB HEMATOLOGY METHOD 08/17/2024 6:09 PM EDT [facility] Eosinophils %, Body fluid 0 % LAB HEMATOLOGY METHOD 08/17/2024 6:09 PM EDT [facility] Lining/Mesothe lial Cells %, Body fluid 2 % LAB HEMATOLOGY METHOD 08/17/2024 6:09 PM EDT [facility] Neutrophils Absolute (PMN), Body fluid 63 uL LAB HEMATOLOGY METHOD 08/17/2024 6:09 PM EDT [facility] Lymphocytes Absolute, Body fluid 137 uL LAB HEMATOLOGY METHOD 08/17/2024 6:09 PM EDT [facility] Monocytes/Macr ophages Absolute, Body fluid 163 uL LAB HEMATOLOGY METHOD 08/17/2024 6:09 PM EDT [facility] Eosinophils Absolute, Body fluid 0 uL LAB HEMATOLOGY METHOD 08/17/2024 6:09 PM EDT [facility] Basophils Absolute, Body fluid 0 uL LAB HEMATOLOGY METHOD 08/17/2024 6:09 PM EDT [facility] Lining/Mesothe lial Cells Absolute, Body fluid 7 uL LAB HEMATOLOGY METHOD 08/17/2024 6:09 PM EDT [facility] Basophils %, Body fluid 0 % LAB HEMATOLOGY METHOD 08/17/2024 6:09 PM EDT [facility] Body Fluid Structure of right pleural cavity / Unknown Non-blood Collection / Unknown 08/17/2024 10:58 AM EDT 08/17/2024 11:11 AM EDT Boby Rouse APRN LAB BODY FLUIDS AND STOOLS ORDERABLES NO SPECIMEN TYPE/SOURCE Final Result [facility] [address] [place] [address] * Chylomicron Electrophoresis (Reflex Only) (08/17/2024 10:57 AM EDT) Chylomicron Electrophoresis Billed 08/25/2024 6:56 PM EDT [facility] ([facility]) Fluid Pleural fluid specimen / Unknown 08/17/2024 10:57 AM EDT 08/17/2024 11:10 AM EDT Narrative [facility] ([facility]) - 08/25/2024 6:56 PM EDT Performed By: [employer] [address] [place] [address] Singe Winder: Austin Bernal MD, PhD CLIA Number: [id number] Boby Rouse APRN LAB REF LAB BLOOD AND FLUID ORD Final Result Performing Organization Address [facility] Co de Phone Number [facility] ([facility]) [address] [place] [address] * Amylase, Pleural Fluid (08/17/2024 10:57 AM [...] developed and its performance characteristics determined by [facility]. The [employer] [...] upper reference limit for serum and a wsiza-ks-fheyy amylase ratio greater than one. Note: Interpretive [...] cytology, plasma/serum results, and other clinical evidence. Kenneth Jmaes MD LAB BODY FLUIDS AND STOOLS ORD ERABLES Final Result Performing Organization Address City/State/[facility] Co de Phone Number [facility] [address] [place] [address] * Cholesterol Fluid Battery (08/17/2024 10:57 AM EDT) CHOLESTEROL, FLUID 28 mg/dL 08/19/2024 1:48 PM EDT [facility] ([facility]) CHOLESTEROL FLUID SOURCE Pleural fluid 08/19/2024 1:48 PM EDT [facility] ([facility]) Pleural Fluid Structure of right pleural cavity / Unknown Non-blood Collection / Unknown 08/17/2024 10:57 AM EDT 08/17/2024 11:10 AM EDT Narrative [facility] ([facility]) - 08/19/2024 1:48 PM EDT INTERPRETIVE INFORMATION: Cholesterol, Body Fluid For information on body fluid reference ranges and/or interpretive guidance visit [email or web address] This test was developed and its performance characteristics determined by [employer]. It has not been cleared or approved by the US Food and Drug Administration. This test was performed in a CLIA certified laboratory and is intended for clinical purposes. Performed By: [employer] [address] [place] [id number] Singe Winder: Austin Bernal MD, PhD CLIA Number: [id number] Boby Rouse APRN LAB REF LAB BLOOD AND FLUID ORD Final Result Performing Organization Address [facility] Co de Phone Number [facility] ([facility] [address] [place] [address] * Adenosine Deaminase,Pleural Fluid (08/17/2024 10:57 AM EDT) ADA, Pleural Fluid 5 0 - 30 U/L 08/19/2024 3:10 PM EDT [facility] ([facility] Pleural Fluid Structure of right pleural cavity / Unknown Non-blood Collection / Unknown 08/17/2024 10:57 AM EDT 08/17/2024 11:10 AM EDT Narrative [facility]) - 08/19/2024 3:10 PM EDT INTERPRETIVE INFORMATION:Adenosine Deaminase, Pleural Fluid This test was developed and its performance characteristics determined by [employer]. It has not been cleared or approved by the US Food and Drug Administration. This test was performed in a CLIA certified laboratory and is intended for clinical purposes. Performed By: [employer] [address] [place] [address] Singe Winder: Austin Bernal MD, PhD CLIA Number: [id number] Boby Rouse APRN LAB BODY FLUIDS AND STOOLS ORDERABLES Final Result Performing Organization Address [facility] Co de Phone Number [facility] ([facility] [address] [place] [address] * (ABNORMAL) pH, pleural fluid (08/17/2024 10:57 [...] and its performance characteristics determined by the [facility]. Pleural pH is [...] STOOLS ORDERABLES Final Result Performing Organization Address City/[facility]/ZIP Co de Phone Number [facility] [address] [place] [address] * AFB Culture and Acid Fast Stain - Pleural Right (08/17/2024 10:57 AM EDT) Pathologist [facility] AFB Culture No Mycobacterial Growth at 6 Weeks 09/29/2024 5:06 PM EDT [facility] Acid Fast Stain No acid fast bacilli seen 09/29/2024 5:06 PM EDT [facility] Pleural Fluid Specimen from pleura obtained by thoracentesis / Unknown Non-blood Collection / Unknown 08/17/2024 10:57 AM EDT 08/17/2024 11:14 AM EDT Boby Rouse APRN LAB MICROBIOLOGY - GENERAL ORDERABLES Final Result [facility] [address] [place] [address] * Triglycerides BF with RFLX to CHYLO (SO) (08/17/2024 10:57 AM EDT) Pathologist [facility] Triglyceride, Fluid 27 mg/dL 08/25/2024 6:56 PM EDT [facility] ([facility]) Triglyceride Fluid Source Pleural fluid 08/25/2024 6:56 PM EDT [facility] ([facility]) Chylomicron Screen, Body Fluid Absent Absent 08/25/2024 6:56 PM EDT [facility] ([facility]) Fluid Pleural fluid specimen / Unknown 08/17/2024 10:57 AM EDT 08/17/2024 11:10 AM EDT Narrative [facility] ([facility]) - 08/25/2024 6:56 PM EDT INTERPRETIVE INFORMATION: Triglycerides, Fluid For information on body fluid reference ranges and/or interpretive guidance visit [email or web address]/ This test was developed and its performance characteristics determined by [employer]. It has not been cleared or approved by the US Food and Drug Administration. This test was performed in a CLIA certified laboratory and is intended for clinical purposes. Chylomicrons were not detected. This appears to be a nonchylous fluid. INTERPRETIVE INFORMATION: Chylomicron Screen, Body Fluid This test was developed and its performance characteristics determined by [employer]. It has not been cleared or approved by the U.S. Food and Drug Administration. This test was performed in a CLIA-certified laboratory and is intended for clinical purposes. Performed By: [employer] [address] [id number] Singe Winder: Austin Bernal MD, PhD CLIA Number: [id number] Boby Rouse APRN LAB REF LAB BLOOD AND FLUID ORD Final Result [facility] ([facility]) [address] [place] [address] * Cytology - Pleural Right (08/17/2024 10:57 AM EDT) Case Report Cytology Case: [id number] Authorizing Provider: Boby Rouse APRN Collected: 08/17/2024 1057 Ordering Location: [facility] Inpatient Received: 08/17/2024 1347 Pathologist: Jayme [...] 10:57 AM EDT 08/17/2024 1:47 PM EDT us Boby Rouse APRN LAB CYTOLOGY ORDERABLES Fin al Result [facility] [address] [place] [address] * Glucose - Pleural Right (08/17/2024 10:57 [...] effusion, tuberculosis, malignancy, empyema, and/or rheumatoid disease. us Boby Rouse APRN LAB BODY FLUIDS AND STOOLS ORDERABLES Final Result Performing Organization Address City/[facility]/ZIP Co de Phone Number [facility] [address] [place] [address] * Albumin - Pleural Right (08/17/2024 10:57 [...] developed and its performance characteristics determined by [facility]. The U.S. Food and Drug Administration has not approved or cleared this test; however, FDA clearance or approval is not currently required for clinical use. The results are not intended to be used as the sole means for clinical diagnosis or patient management decisions. Boby Rouse [facility] LAB BODY FLUIDS AND STOOLS ORDERABLES Final Result Performing Organization Address [facility] Co de Phone Number [facility] [address] [place] [address] * Lactate Dehydrogenase, Pleural Fluid - Right [...] the following criteria are present: (1) pleural hzfzo-lb-nzqih protein ratio of >0.5, (2) pleural nhxdg-fe-dnwtx LDH ratio of >0.6, or (3) a pleural fluid LDH activity that is >2/3 the upper limit of a normal serum LDH activity. Light's criteria may misclassify ~25% of transudates as exudates in heart failure. These can be identified by calculating a lngwj-qs-maagpvt albumin gradient (>1.2 g/dL) and/or a jgbzq-oz-mxavq protein gradient (>3.1 g/dL). us Boby Rouse APRN LAB BODY FLUIDS AND STOOLS ORDERABLES Final Result Performing Organization Address [facility] Co de Phone Number [address] [address] * Total Protein, Pleural Fluid - Pleural [...] developed and its performance characteristics determined by [facility]. The U.S. Food and Drug Administration has not approved or cleared this test. However, FDA clearance or approval is not currently required for clinical use. The results are not intended to be used as the sole means for clinical diagnosis or patient management decisions. us Boby Rouse APRN LAB BODY FLUIDS AND STOOLS ORDERABLES Final Result Performing Organization Address [facility] Co de Phone Number [facility] [address] [place] [address] * Body Fluid Culture and Gram Stain [...] 10:57 AM EDT 08/17/2024 11:14 AM EDT us Boby Rouse APRN LAB MICROBIOLOGY - GENERAL ORDERABLES Final Result Performing Organization Address City/[facility]/ZIP Co de Phone Number [facility] [address] [place] [address] * (ABNORMAL) POCT glucose meter (08/17/2024 7:39 AM EDT) [facility] POCT Glucose 232(H) 74 - 99 mg/dL 08/17/2024 7:51 AM EDT [facility] Comment:Accuracy of a [...] Comment 08/17/2024 7:51 AM EDT [facility] Child Welfare Assistant ID Partha Zhu 08/18/19 7:51 AM EDT HEALTHCARE LAB Device ID [id number] 08/17/2024 7:51 AM EDT [facility] Specimen Type POC Capillary 08/17/2024 7:51 AM EDT [facility] Blood Capillary blood specimen / Unknown 08/17/2024 7:39 AM EDT 08/17/2024 7:51 AM EDT us Kenneth James MD LAB POINT OF CARE TE ST DOCKED DEVICE UNSOLICITED RESULTS Final Result [facility] [address] [place] [address] * (ABNORMAL) Prothrombin Time/INR (08/17/2024 4:28 AM [...] INR 2.5 to 3.5 Prevention of recurrent [place] INR 2.5 to 3.5 us Kenneth James MD LAB BLOOD ORDERABLES Final Res ult [facility] [address] [place] [address] * (ABNORMAL) CBC W/O Differential (08/17/2024 4:28 AM EDT) Pathologist [facility] WBC Count 5.50 3.70 - 10.30 10*3/uL [...] 4:28 AM EDT 08/17/2024 4:42 AM EDT Doron Thayer MD LAB BLOOD ORDERABLES Final Resu lt Performing Organization Address City/[facility]/ZIP Co de Phone Number [facility] [address] [place] [address] * (ABNORMAL) Magnesium (08/17/2024 4:28 AM EDT) Magnesium, Plasma 1.8(L) 1.9 - 2.4 mg/dL 08/17/2024 5:15 AM EDT [facility] Blood Venous blood specimen / Unknown Venipuncture / Unknown 08/17/2024 4:28 AM EDT 08/17/2024 4:42 AM EDT Doron Thayer MD LAB BLOOD ORDERABLES Final Resu lt [facility] [address] [place] [address] * (ABNORMAL) Comprehensive metabolic panel (08/17/2024 4:28 [...] ORDERABLES Final Resu lt Performing Organization Address City/[facility]/ZIP Co de Phone Number [facility] [address] [place] [address] * (ABNORMAL) Lactate dehydrogenase (08/17/2024 4:28 AM EDT) [facility] LDH, Plasma 322(H) 116 - 250 U/L 08/17/2024 5:15 AM EDT [facility] Blood Venous blood specimen / Unknown Venipuncture / Unknown 08/17/2024 4:28 AM EDT 08/17/2024 4:42 AM EDT us Boby Rouse APRN LAB BLOOD ORDERABLES Final Result Performing Organization Address [facility] [place] [address] * (ABNORMAL) POCT glucose meter (08/16/2024 8:03 PM EDT) [facility] POCT Glucose 356(H) 74 - 99 mg/dL [...] 08/16/2024 8:05 PM EDT [facility] Child Welfare Assistant ID Joe Del Real 08/16/2024 8:05 PM EDT [facility] Device ID [id number] 08/16/2024 8:05 PM EDT [facility] Specimen Type POC Capillary 08/16/2024 8:05 PM EDT [facility] Blood Capillary blood specimen / Unknown 08/16/2024 8:03 PM EDT 08/16/2024 8:05 PM EDT Doron Thayer MD LAB POINT OF CARE TE ST DOCKED DEVICE UNSOLICITED RESULTS Final Result [facility] [address] [place] [address] * (ABNORMAL) POCT glucose meter (08/16/2024 4:12 PM EDT) POCT Glucose 173(H) 74 - 99 [...] for testing. Comment 08/16/2024 4:14 PM EDT HEALTHCARE LAB Child Welfare Assistant ID Paula Wright 4:14 PM EDT HEALTHCARE LAB Device ID [id number] 08/16/2024 4:14 PM EDT [facility] Specimen Type POC Capillary 08/16/2024 4:14 PM EDT [facility] Blood Capillary blood specimen / Unknown 08/16/2024 4:12 PM EDT 08/16/2024 4:14 PM EDT Doron Thayer MD LAB POINT OF CARE TE ST DOCKED DEVICE UNSOLICITED RESULTS Final Result [facility] [address] [place] [address] * (ABNORMAL) POCT glucose meter (08/16/2024 11:03 [...] Comment 08/16/2024 11:05 AM EDT [facility]ARE [facility] Child Welfare Assistant ID Alicia Licea 025 11:05 AM EDT HEALTHCARE LAB Device ID [id number] 08/16/2024 11:05 AM EDT [facility] Specimen Type POC Capillary 08/16/2024 11:05 AM EDT [facility] Blood Capillary blood specimen / Unknown 08/16/2024 11:03 AM EDT 08/16/2024 11:05 AM EDT us Doron Thayer MD LAB POINT OF CARE TE ST DOCKED DEVICE UNSOLICITED RESULTS Final Result Performing Organization Address City/State/[facility] Co de Phone Number [facility] [address] [place] [address] * (ABNORMAL) POCT glucose meter (08/16/2024 7:44 AM EDT) POCT Glucose 190(H) 74 - 99 mg/dL 08/16/2024 7:52 AM EDT [facility] Comment:Accuracy of a [...] Comment 08/16/2024 7:52 AM EDT [facility]ARE LAB Child Welfare Assistant ID Paula Wright 7:52 AM EDT HEALTHCARE LAB Device ID [id number] 08/16/2024 7:52 AM EDT [facility] Specimen Type POC Capillary 08/16/2024 7:52 AM EDT [facility] Blood Capillary blood specimen / Unknown 08/16/2024 7:44 AM EDT 08/16/2024 7:52 AM EDT us Doron Thayer MD LAB POINT OF CARE TE ST DOCKED DEVICE UNSOLICITED RESULTS Final Result Performing Organization Address [facility]/ZIP Co de Phone Number [facility] [address] [place] [address] * (ABNORMAL) Prothrombin Time/INR (08/16/2024 1:46 AM EDT) Prothrombin Time 24.3(H) 12.0 - 14.3 sec [...] INR 2.5 to 3.5 Prevention of recurrent [place] INR 2.5 to 3.5 us Kenneth James MD LAB BLOOD ORDERABLES Final Res ult Performing Organization Address City/[facility]/ZIP Co de Phone Number [facility] [address] [place] [address] * (ABNORMAL) CBC W/O Differential (08/16/2024 1:46 [...] [facility] [address] [place] [address] * (ABNORMAL) Magnesium (08/16/2024 1:46 AM EDT) Magnesium, Plasma 1.5(L) 1.9 - 2.4 mg/dL 08/16/2024 2:28 AM EDT [facility] Blood Venous blood specimen / Unknown Venipuncture / Unknown 08/16/2024 1:46 AM EDT 08/16/2024 1:57 AM EDT us Doron Thayer MD LAB BLOOD ORDERABLES Final Resu lt [facility] [address] [place] [address] * (ABNORMAL) Basic metabolic panel (08/16/2024 1:46 [...] [facility] [address] [place] [address] * (ABNORMAL) POCT glucose meter (08/15/2024 9:37 PM EDT) [facility] POCT Glucose 235(H) 74 - 99 mg/dL [...] for testing. Comment 08/15/2024 9:38 PM EDT [facility] Child Welfare Assistant ID Laura Cope 08/15/2024 9:38 PM EDT [facility] Device ID [id number] 08/15/2024 9:38 PM EDT [facility]ALTHCARE LAB Specimen Type POC Capillary 08/15/2024 9:38 PM EDT [facility] Blood Capillary blood specimen / Unknown 08/15/2024 9:37 PM EDT 08/15/2024 9:38 PM EDT Doron Thayer MD LAB POINT OF CARE TE ST DOCKED DEVICE UNSOLICITED RESULTS Final Result [facility] [address] [place] [address] * (ABNORMAL) POCT glucose meter (08/15/2024 6:03 PM EDT) [facility] POCT Glucose 184(H) 74 - 99 mg/dL 08/15/2024 6:06 PM EDT HEALTHCARE LAB Comment:Accuracy of a [...] for testing. Comment 08/15/2024 6:06 PM EDT [facility] Child Welfare Assistant ID Hoda Skinner 025 6:06 PM EDT [facility] Device ID [id number] 08/15/2024 6:06 PM EDT [facility]ALTH[facility] LAB Specimen Type POC Capillary 08/15/2024 6:06 PM EDT [facility] Blood Capillary blood specimen / Unknown 08/15/2024 6:03 PM EDT 08/15/2024 6:06 PM EDT Arben Ibarra MD LAB POINT OF CARE TE ST DOCKED DEVICE UNSOLICITED RESULTS Final Result Performing Organization Address City/[facility]/ZIP Co de Phone Number [facility] [address] [place] [address] * (ABNORMAL) POCT glucose meter (08/15/2024 4:20 PM EDT) POCT Glucose 204(H) 74 - 99 mg/dL [...] for testing. Comment 08/15/2024 4:26 PM EDT [facility]ARE [facility] Child Welfare Assistant ID Hoda Skinner 025 4:26 PM EDT HEALTHCARE LAB Device ID [id number] 08/15/2024 4:26 PM EDT [facility] Specimen Type POC Capillary 08/15/2024 4:26 PM EDT [facility] Blood Capillary blood specimen / Unknown 08/15/2024 4:20 PM EDT 08/15/2024 4:26 PM EDT Arben Ibarra MD LAB POINT OF CARE TE ST DOCKED DEVICE UNSOLICITED RESULTS Final Result Performing Organization Address City/[facility]/ZIP Co de Phone Number [facility] [address] [place] [address] * (ABNORMAL) POCT glucose meter (08/15/2024 1:00 PM EDT) POCT Glucose 134(H) 74 - 99 mg/dL [...] for testing. Comment 08/15/2024 1:02 PM EDT [facility]ARE [facility] Child Welfare Assistant ID Hoda Skinner 025 1:02 PM EDT [facility] Device ID [id number] 08/15/2024 1:02 PM EDT [facility] Specimen Type POC Capillary 08/15/2024 1:02 PM EDT [facility] Blood Capillary blood specimen / Unknown 08/15/2024 1:00 PM EDT 08/15/2024 1:02 PM EDT Arben Ibarra MD LAB POINT OF CARE TE ST DOCKED DEVICE UNSOLICITED RESULTS Final Result Performing Organization Address City/State/[facility] Co de Phone Number [facility] [address] [place] [address] * (ABNORMAL) POCT glucose meter (08/15/2024 12:14 PM EDT) [facility] POCT Glucose 123(H) 74 - 99 mg/dL [...] Comment 08/15/2024 12:20 PM EDT HEALTHCARE LAB Child Welfare Assistant ID Hoda Skinner 025 12:20 PM EDT [facility] Device ID [id number] 08/15/2024 12:20 PM EDT [facility] Specimen Type POC Capillary 08/15/2024 12:20 PM EDT [facility] Blood Capillary blood specimen / Unknown 08/15/2024 12:14 PM EDT 08/15/2024 12:20 PM EDT Arben Ibarra MD LAB POINT OF CARE TE ST DOCKED DEVICE UNSOLICITED RESULTS Final Result [facility] [address] [place] [address] * XR Chest 1 View (08/15/2024 9:22 [...] QTC Interval 546 ms MUSE ECG R [place] -70 degrees MUSE ECG T Wave [place] 119 degrees MUSE ECG Diagnosis Ventricular-pa amber rhythm MUSE ECG Diagnosis Abnormal ECG MUSE ECG Diagnosis MUSE ECG Diagnosis Compared to last ECG MUSE ECG Diagnosis No significant change was found MUSE ECG Diagnosis Confirmed by Cristian Irwin ([id number]) on 08/15/2024 10:42:20 AM MUSE ECG 08/15/2024 8:51 AM EDT 08/15/2024 10:42 AM EDT Arben Ibarra MD ECG ORDERABLES Final Result [facility] ECG * (ABNORMAL) POCT glucose meter (08/15/2024 7:52 AM EDT) POCT Glucose 175(H) 74 - 99 mg/dL 08/15/2024 7:56 AM EDT [facility] Comment:Accuracy of [...] for testing. Comment 08/15/2024 7:56 AM EDT [facility] Child Welfare Assistant ID Lia Skinnera 025 7:56 AM EDT [facility] Device ID [id number] 08/15/2024 7:56 AM EDT [facility] Specimen Type POC Capillary 08/15/2024 7:56 AM EDT [facility] Blood Capillary blood specimen / Unknown 08/15/2024 7:52 AM EDT 08/15/2024 7:56 AM EDT Arben Ibarra MD LAB POINT OF CARE TE ST DOCKED DEVICE UNSOLICITED RESULTS Final Result [facility] [address] [place] [address] * (ABNORMAL) POCT glucose meter (08/15/2024 6:27 AM EDT) [facility] POCT Glucose 125(H) 74 - 99 mg/dL 08/15/2024 6:29 AM EDT HEALTHCARE LAB Comment:Accuracy of a [...] Comment 08/15/2024 6:29 AM EDT [facility]ALTH[facility]ARE LAB Child Welfare Assistant ID Manuel Tabares 08/15/2024 6:29 AM EDT HEALTHCARE LAB Device ID [id number] 08/15/2024 6:29 AM EDT [facility] Specimen Type POC Capillary 08/15/2024 6:29 AM EDT [facility] Blood Capillary blood specimen / Unknown 08/15/2024 6:27 AM EDT 08/15/2024 6:29 AM EDT Arben Ibarra MD LAB POINT OF CARE TE ST DOCKED DEVICE UNSOLICITED RESULTS Final Result Performing Organization Address City/State/[facility] Co de Phone Number [facility] [address] [place] [address] * POCT glucose meter (08/15/2024 6:07 AM EDT) [facility] POCT Glucose 95 74 - 99 mg/dL 08/15/2024 6:08 AM EDT [facility] Comment:Accuracy of [...] Comment 08/15/2024 6:08 AM EDT [facility]ALTH[facility]ARE [facility] Child Welfare Assistant ID Manuel Tabares 08/15/2024 6:08 AM EDT HEALTHCARE LAB Device ID [id number] 08/15/2024 6:08 AM EDT [facility]ARE LAB Specimen Type POC Capillary 08/15/2024 6:08 AM EDT [facility] Blood Capillary blood specimen / Unknown 08/15/2024 6:07 AM EDT 08/15/2024 6:08 AM EDT Arben Ibarra MD LAB POINT OF CARE TE ST DOCKED DEVICE UNSOLICITED RESULTS Final Result Performing Organization Address City/[facility] Co de Phone Number [facility] [address] [place] [address] * (ABNORMAL) POCT glucose meter (08/15/2024 5:46 AM EDT) POCT Glucose 48(LL) 74 - 99 mg/dL 08/15/2024 5:48 AM EDT [facility] Comment:Accuracy of [...] for testing. Comment 08/15/2024 5:48 AM EDT [facility] Child Welfare Assistant ID Manuel Tabares 08/15/2024 5:48 AM EDT HEALTHCARE LAB Device ID [id number] 08/15/2024 5:48 AM EDT [facility]ALTH[facility]ARE LAB Specimen Type POC Capillary 08/15/2024 5:48 AM EDT [facility] Blood Capillary blood specimen / Unknown 08/15/2024 5:46 AM EDT 08/15/2024 5:48 AM EDT Arben Ibarra MD LAB POINT OF CARE TE ST DOCKED DEVICE UNSOLICITED RESULTS Final Result Performing Organization Address City/[facility]/ZIP Co de Phone Number [facility] [address] [place] [address] * (ABNORMAL) POCT glucose meter (08/15/2024 5:25 AM EDT) POCT Glucose 61(L) 74 - 99 mg/dL 08/15/2024 5:26 AM EDT [facility] Comment:Accuracy of [...] for testing. Comment 08/15/2024 5:26 AM EDT [facility]ALTH[facility]ARE LAB Child Welfare Assistant ID Manuel Tabares 08/15/2024 5:26 AM EDT HEALTHCARE LAB Device ID [id number] 08/15/2024 5:26 AM EDT [facility] LAB Specimen Type POC Capillary 08/15/2024 5:26 AM EDT [facility] Blood Capillary blood specimen / Unknown 08/15/2024 5:25 AM EDT 08/15/2024 5:26 AM EDT Arben Ibarra MD LAB POINT OF CARE TE ST DOCKED DEVICE UNSOLICITED RESULTS Final Result Performing Organization Address City/State/[facility] Co de Phone Number [facility]ARE [facility] [address] [place] [address] * (ABNORMAL) Blood gas panel, arterial (08/15/2024 [...] 5:01 AM EDT 08/15/2024 5:13 AM EDT [facility] Ashish Vargas MD LAB BLOOD ORDERABLES Final R esult [facility] [address] [place] [address] * (ABNORMAL) Prothrombin Time/INR (08/15/2024 4:52 AM EDT) Prothrombin Time 24.4(H) 12.0 - 14.3 sec 08/15/2024 5:08 AM EDT [facility] INR 2.2(H) 0.9 - 1.1 08/15/2024 5:08 AM EDT [facility] [...] INR 2.5 to 3.5 Prevention of recurrent [place] INR 2.5 to 3.5 Kenneth James MD LAB BLOOD ORDERABLES Final Res ult Performing Organization Address [facility]/ZIP Co de Phone Number [facility] [address] [place] [address] * Vitamin D 25 Hydroxy (08/15/2024 4:52 AM EDT) Vitamin D 25 Hydroxy 51.5 20.0 - 80.0 ng/mL 08/15/2024 6:37 AM EDT [facility] Blood Venous blood specimen / Unknown Venipuncture / Unknown 08/15/2024 4:52 AM EDT 08/15/2024 4:59 AM EDT [facility] - 08/15/2024 6:37 AM EDT Testing performed on [employer], standardized against NIST SRM 2972. When testing [...] Re sult Performing Organization Address [facility]/ZIP Co de Phone Number [facility] [address] [place] [address] * (ABNORMAL) N-Terminal Probnp, Plasma (08/15/2024 4:52 AM EDT) N-Terminal, PROBNP, Plasma 6,053(H) 0 - 899 pg/mL 08/15/2024 5:32 AM EDT [facility] Blood Venous blood specimen / Unknown Venipuncture / Unknown 08/15/2024 4:52 AM EDT 08/15/2024 4:59 AM EDT us Arben Ibarra MD LAB BLOOD ORDERABLES Final Re sult Performing Organization Address [facility]/ZIP Co de Phone Number [facility] [address] [place] [address] * Phosphorus (08/15/2024 4:52 AM EDT) Phosphorus, Plasma 3.2 2.5 - 4.5 mg/dL 08/15/2024 5:32 AM EDT [facility] Blood Venous blood specimen / Unknown Venipuncture / Unknown 08/15/2024 4:52 AM EDT 08/15/2024 4:59 AM EDT us Arben Ibarra MD LAB BLOOD ORDERABLES Final Re sult Performing Organization Address [facility] Co de Phone Number [facility] [address] [place] [address] * Magnesium (08/15/2024 4:52 AM EDT) Magnesium, Plasma 1.9 1.9 - 2.4 mg/dL 08/15/2024 5:32 AM EDT [facility] Blood Venous blood specimen / Unknown Venipuncture / Unknown 08/15/2024 4:52 AM EDT 08/15/2024 4:59 AM EDT us Arben Ibarra MD LAB BLOOD ORDERABLES Final Re sult Performing Organization Address City/[facility] Co de Phone Number [facility] [address] [place] [address] * (ABNORMAL) Basic metabolic panel (08/15/2024 4:52 [...] [facility] [address] [place] [address] * (ABNORMAL) CBC W/O Differential (08/15/2024 4:52 [...] 4:52 AM EDT 08/15/2024 4:55 AM EDT us Arben Ibarra MD LAB BLOOD ORDERABLES Final Re sult [facility] [address] [place] [address] * (ABNORMAL) POCT glucose meter (08/14/2024 8:54 PM EDT) POCT Glucose 206(H) 74 - 99 mg/dL 08/14/2024 8:56 PM EDT [facility] Comment:Accuracy of a glucos e result [...] for testing. Comment 08/14/2024 8:56 PM EDT [facility] Child Welfare Assistant ID Manuel Tabares 08/14/2024 8:56 PM EDT [facility] Device ID [id number] 08/14/2024 8:56 PM EDT [facility] Specimen Type POC Capillary 08/14/2024 8:56 PM EDT [facility] Blood Capillary blood specimen / Unknown 08/14/2024 8:54 PM EDT 08/14/2024 8:56 PM EDT us Arben Ibarra MD LAB POINT OF CARE TE ST DOCKED DEVICE UNSOLICITED RESULTS Final Result Performing Organization Address City/State/[facility] Co de Phone Number [facility] [address] [place] [address] * (ABNORMAL) POCT glucose meter (08/14/2024 6:43 PM EDT) [facility] POCT Glucose 218(H) 74 - 99 mg/dL [...] for testing. Comment 08/14/2024 6:45 PM EDT [facility] Child Welfare Assistant ID Renee Barrett 025 6:45 PM EDT [facility]ALTH[facility]ARE LAB Device ID [id number] 08/14/2024 6:45 PM EDT [facility] Specimen Type POC Capillary 08/14/2024 6:45 PM EDT [facility] Blood Capillary blood specimen / Unknown 08/14/2024 6:43 PM EDT 08/14/2024 6:45 PM EDT us Arben Ibarra MD LAB POINT OF CARE TE ST DOCKED DEVICE UNSOLICITED RESULTS Final Result Performing Organization Address City/[facility]/ZIP Co de Phone Number [facility] [address] [place] [address] * (ABNORMAL) Protime-INR (08/14/2024 6:08 PM EDT) [...] INR 2.5 to 3.5 Prevention of recurrent [place] INR 2.5 to 3.5 Arben Ibarra MD LAB BLOOD ORDERABLES Final Re sult Performing Organization Address City/[facility]/ZIP Co de Phone Number [facility] [address] [place] [id number] * (ABNORMAL) Hemoglobin A1c (08/14/2024 6:08 PM [...] Adults <6.0% Children and Adolescents <7.5% Source: [place] [employer]. Standards of medical care in diabetes,2017. Diabetes Care.2017:40 (suppl 1):S1-S135. us Arben Ibarra MD LAB BLOOD ORDERABLES Final Re sult [facility] [address] [place] [address] * XR Chest 1 View (08/14/2024 3:52 [...] Polanco MD on 08/14/2024 3:59 PM Jackson Puente MD IMG XR PROCEDURES Final Result * (ABNORMAL) BNP (08/14/2024 2:55 PM EDT) Pathologist [facility] N-Terminal, PROBNP, Plasma 6,763(H) 0 - 899 pg/mL 08/14/2024 3:43 PM EDT [facility] Blood Venous blood specimen / Unknown Venipuncture / Unknown 08/14/2024 2:55 PM EDT 08/14/2024 2:58 PM EDT Jackson Puente MD LAB BLOOD ORDERABLES Fi nal Result [facility] [address] [place] [address] * (ABNORMAL) CBC w/diff (08/14/2024 2:55 PM EDT) Pathologist [facility] WBC Count 6.61 3.70 - 10.30 10*3/uL [...] based on absolute values, rather than percentages. Jackson Puente MD LAB BLOOD ORDERABLES Fi nal Result Performing Organization Address City/[facility]/ZIP Co de Phone Number [facility] [address] [place] [address] * (ABNORMAL) Troponin now and 120 min (08/14/2024 2:55 PM EDT) Troponin T, High Sensitivity, 0 Hour 29(H) <14 ng/L 08/14/2024 3:43 PM EDT [facility] Blood Venous blood specimen / Unknown Venipuncture / Unknown 08/14/2024 2:55 PM EDT 08/14/2024 2:58 PM EDT Jackson Puente MD LAB BLOOD ORDERABLES Fi nal Result [facility] [address] [place] [address] * (ABNORMAL) Magnesium (08/14/2024 2:55 PM EDT) Magnesium, Plasma 1.6(L) 1.9 - 2.4 mg/dL 08/14/2024 3:43 PM EDT [facility] Blood Venous blood specimen / Unknown Venipuncture / Unknown 08/14/2024 2:55 PM EDT 08/14/2024 2:58 PM EDT us Jackson Puente MD LAB BLOOD ORDERABLES Fi nal Result [facility] [address] [place] [address] * (ABNORMAL) CMP (08/14/2024 2:55 PM EDT) [...] ORDERABLES Fi nal Result Performing Organization Address City/[facility] Co de Phone Number [facility] [address] [place] [address] * EKG now - STAT (adult) (08/14/2024 2:31 PM EDT) EKG DIAGNOSIS CLASS Abnormal MUSE ECG Ventricular Rate 60 BPM MUSE ECG Atrial Rate 28 BPM MUSE ECG QRSD Interval 192 ms MUSE ECG QT Interval 554 ms MUSE ECG QTC Interval 554 ms MUSE ECG P [place] 48 degrees MUSE ECG R [place] -66 degrees MUSE ECG T Wave [place] 114 degrees MUSE ECG Diagnosis Ventricular-pa amber rhythm MUSE ECG Diagnosis Abnormal ECG MUSE ECG Diagnosis MUSE ECG Diagnosis Compared to last ECG MUSE ECG Diagnosis No significant change was found MUSE ECG Diagnosis Confirmed by Cristian Irwin ([id number]) on 08/15/2024 10:41:50 AM MUSE ECG 08/14/2024 2:31 PM EDT 08/15/2024 10:41 AM EDT us Jackson Puente MD ECG ORDERABLES Final R esult Performing Organization Address City/[facility]/ZIP Co de Phone Number MUSE ECG documented in this encounter Visit Diagnoses Diagnosis Acute on chronic hypoxic respiratory failure- Primary Acute on chronic congestive heart failure, unspecified heart failure type ([facility]) Shortness of breath Pleural effusion Unspecified pleural effusion Systemic lupus erythematosus (SLE) in adult ([facility]) Pleural effusion Unspecified pleural effusion Atrial fibrillation ([facility]) Atrial fibrillation Heart failure with preserved ejection fraction ([facility]) SLE (systemic lupus erythematosus) ([facility]) Systemic lupus erythematosus Presence of cardiac pacemaker Cardiac pacemaker in situ Acquired hypothyroidism Unspecified hypothyroidism Acute on chronic congestive heart failure ([facility]) Type 1 diabetes mellitus with other specified complication ([facility]) Acute on chronic congestive heart failure, unspecified heart failure type ([facility]) Pleural effusion Unspecified pleural effusion documented in this encounter Admitting Diagnoses Diagnosis Acute on chronic hypoxic respiratory failure Acute on chronic congestive heart failure ([facility]) documented in this encounter Administered Medications Inactive [...] Fri08/16/24 at 2100, Until Discontinued, Routine Given 08/23/2024 [...] Intravenous, Every 8 hours, First dose on Fri08/14/24 at 1715, Until Discontinued, Routine Given 08/18/2024 7:56 AM EDT 40 mg Given 08/18/2024 12:24 AM EDT 40 mg Given 08/17/2024 6:14 PM EDT 40 mg furosemide (Lasix) injection 40 mg 40 mg, Intravenous, Every 12 hours, First dose (after last modification) on Fri08/18/24 at 2000, Until Discontinued, Routine Given 08/19/2024 8:39 AM EDT 40 mg Given 08/18/2024 9:53 PM EDT 40 mg furosemide (Lasix) injection 60 mg 60 mg, Intravenous, Once, 1 dose, On Fri08/15/24 at 0720, STAT Given 08/15/2024 7:27 AM EDT 60 mg furosemide (Lasix) injection 60 mg 60 mg, Intravenous, Once, 1 dose, On Fri08/16/24 at 1500, STAT Given 08/16/2024 2:46 PM [...] Every 8 hours scheduled, First dose on Fri08/14/24 at 1715, Until Discontinued, Routine Given 08/14/2024 5:28 PM EDT 5,000 Units Left Upper Abdomen HYDROmorphone (Dilaudid) injection 0.25 mg 0.25 mg, Intravenous, Once, 1 dose, On Fri08/17/24 at 1030, Routine Given 08/17/2024 10:11 AM [...] nightly (2100 & 0300), First dose on Fri08/14/24 at 2100, Until Discontinued, Routine Given 08/23/2024 3:18 AM EDT 1 Units Left Upper Arm (Back ) Given 08/21/2024 3:51 AM EDT 3 Units Ri ght Lower Abdomen Given 08/20/2024 9:28 PM EDT 1 Units Le ft Lower Abdomen Insulin Lispro (Admelog, HumaLOG) 100 UNIT/ML injection 10 Units 10 Units, Subcutaneous, Once, 1 dose, On Fri08/18/24 at 2045, Routine Given 08/18/2024 9:52 PM EDT 10 Units Right Upper Abdomen Insulin Lispro (Admelog, HumaLOG) 100 UNIT/ML injection 2 Units 2 Units, Subcutaneous, 3 times daily with meals, First dose on Fri08/20/24 at 1230, Until Discontinued, Routine Given 08/21/2024 1:09 PM EDT 2 Units Right Upper Arm (Janessa k) Given 08/21/2024 9:14 AM EDT 2 Units Le ft Upper Arm (Back) Given 08/20/2024 5:34 PM [...] Nebulization, Every 6 hours PRN, Starting on [place] 08/15/24 at 0421, Until [facility] 08/24/24 at 1720, Routine, wheezing Given 08/15/2024 4:35 [...] mcg, Oral, Every morning, First dose on [place] 08/15/24 at 0600, Until Discontinued, Routine Given 08/24/2024 5:23 AM EDT 125 mcg Given 08/23/2024 6:23 AM EDT 125 mcg Given 08/22/2024 5:18 AM EDT 125 mcg lidocaine (Xylocaine) 1 % injection 20 mL 20 mL, Infiltration, Once, 1 dose, On [facility] 08/17/24 at 1030, Routine Given 08/17/2024 10:17 AM EDT 20 mL lidocaine (Xylocaine) 1 % injection 20 mL 20 mL, Infiltration, Once, 1 dose, On [place] 08/19/24 at 0900, Routine Given 08/19/2024 11:27 AM [...] 08/14/2024 5:27 PM EDT 2 g 25 mL/ hr magnesium sulfate IVPB 2 g 2 g, Intravenous, Once, 1 dose, On Fri08/16/24 at 0945, Routine New Bag 08/16/2024 9:33 AM EDT 2 g 25 mL/hr magnesium sulfate IVPB 2 g 2 g, Intravenous, Once, 1 dose, On Fri08/17/24 at 0815, Routine New Bag 08/17/2024 9:34 AM EDT 2 g 25 mL/hr melatonin tablet 6 mg 6 mg, Oral, [...] on Fri08/16/24 at 1145, Until Discontinued, Routine Given 08/24/2024 [...] on Fri08/14/24 at 1715, Until Discontinued, Routine Given 08/24/2024 [...] 08/19/2024 11:27 AM EDT 4 g Tiotropium [place] Monohydrate (Spiriva Respimat) 2.5 MCG/ACT inhaler 2 [...] on Fri08/15/24 at 0900, Until Discontinued, Routine 09 (Given [...] on Fri08/14/24 at 2100, Until Discontinued, Routine 2117 (Given - Provider: Puja Le RN) 2007 (Given - Provider: Jennifer Carroll RN) DULoxetine (Cymbalta) DR capsule 80 mg 80 mg, Oral, Every morning, First dose on Fri08/15/24 at 0600, Until Discontinued, Routine 09 (Given - Provider: Kosta Dugan RN - Comment: given with morning meds) 06 (Given - Provider: Puja Le RN) 05 (Given - Provider: Jennifer Carroll RN) enoxaparin (Lovenox) syringe 40 mg 40 mg, Subcutaneous, Daily, First dose (after last modification) on Fri08/20/24 at 0900, Until Discontinued, Routine 09 (Not Given - Provider: Kosta Dugan RN - Reason: Patient/family refused) 0850 (Given - Provider: Marilee Fabian RN) 0811 (Given - Provider: Kosta Dugan RN) ezetimibe (Zetia) tablet 10 mg 10 mg, Oral, Nightly, First dose on Fri08/16/24 at 2100, Until Discontinued, Routine 211 (Given - Provider: Puja Le RN) 2009 (Given - Provider: Jennifer Carroll RN) folic acid (Folvite) tablet 1 mg 1 mg, Oral, Daily, First dose on Fri08/14/24 at 1730, Until Discontinued, Routine 0930 (Given [...] on Fri08/14/24 at 2100, Until Discontinued, Routine 0930 (Given - Provider: Kosta Dugan RN)2116 (Given - Provider: Puja Le RN) 0851 (Given - Provider: Marilee Fabian, RN)2007 (Given - Provider: Jennifer Carroll RN) 0811 (Given - Provider: Kosta Dugan RN) hydroxychloroquine (Plaquenil) tablet 200 mg 200 mg, Oral, Daily, First dose on Fri08/15/24 at 1600, Until Discontinued, Routine 2117 (Given - Provider: Puja Le RN) 2007 (Given - Provider: Jennifer Carroll RN) insulin glargine-yfgn 100 UNIT/ML injection 7 Units (CANCELED) 7 Units, Subcutaneous, 2 times daily, First dose (after last modification) on Fri08/20/24 at 2100, Until Discontinued, Routine 927 (Given - Provider: Kosta Dugan RN)2117 (Given - Provider: Puja Le RN) 852 (Given - Provider: Marilee Fabian RN) insulin [...] times daily with meals, First dose on Fri08/14/24 at 1730, Until Discontinued, Routine 0929 (Given [...] on 08/14/24 at 2100, Until Discontinued, Routine 325 (Not Given - Provider: Mary Hopper RN - Reason: Order parameters not met)232 (Not Given - Provider: Puja Le RN - Reason: Patient/family refused - Comment: secure message Dr. Eduardo Hoang informing of refusal. Pt educated) 031 (Given - Provider: Puja Le RN)2099 (Canceled Entry - Provider: Jennifer Carroll RN - Comment: order parameters not met) 299 (Canceled Entry - Provider: Jennifer Carroll RN - Comment: order parameters not met) Insulin Lispro (Admelog, HumaLOG) 100 UNIT/ML injection 4 Units 4 Units, Subcutaneous, 3 times daily with meals, First dose (after last modification) on 08/21/24 at 1730, Until Discontinued, Routine 0929 (Given - Provider: Kosta Dugan RN)1135 (Given - Provider: Kosta Dugan, EVITA)1633 (Not Given - Provider: Kosta Dugan RN - Reason: Order parameters not met - Comment: BG 78) 0852 (Given - Provider: Marilee Fabian RN)1230 (Given - Provider: Marilee Fabian, RN)1647 (Given - Provider: Marilee Fabian, RN) 0811 (Given - Provider: Kosta Dugan RN)1302 (Given - Provider: Kosta Dugan RN) latanoprost (Xalatan) 0.005 % ophthalmic solution 1 drop 1 drop, Both Eyes, Nightly, First dose on 08/14/24 at 2100, Until Discontinued, Routine 2123 (Given - Provider: Puja Le RN) 2013 (Given - Provider: Jennifer Carroll RN) levothyroxine (Synthroid, Levoxyl) tablet 125 mcg 125 mcg, Oral, Every morning, First dose on 08/15/24 at 0600, Until Discontinued, Routine 05 (Given - Provider: Mary Hopper RN) 0623 (Given - Provider: Puja Le RN) 0523 (Given - Provider: Jennifer Carroll RN) magic mouthwash BLM (FIRST-Mouthwash) suspension 15 mL 15 mL, Swish & Spit, 4 times daily before meals and nightly, First dose on Fri08/16/24 at 1700, Until Discontinued, Routine 0930 (Given - Provider: Kosta Dugan RN)1135 (Given - Provider: Kosat Dugan RN)1742 (Given - Provider: Kosta Dugan RN)2123 (Given - Provider: Puja Le RN) 0854 (Given - Provider: Marilee Fabian RN)1232 (Given - Provider: Marilee Fabian RN)1649 (Given - Provider: Marilee Fabian RN)2010 (Given - Provider: Jennifer Carroll RN) 0811 (Given - Provider: Kosta Dugan RN)1300 (Given - Provider: Kosta Dugan RN)1700 (Canceled Entry - Provider: Automatic Discharge Provider - Comment: Automatically canceled at discontinue of medication order) magnesium oxide (Mag-Ox) tablet 400 mg (CANCELED) 400 mg, Oral, Daily, First dose on Fri08/20/24 at 0900, Until Discontinued, Routine 09 (Given - Provider: Kosta Dugan RN) metoprolol succinate XL (Toprol-XL) 24 hr tablet 25 mg 25 mg, Oral, Daily, First dose on Fri08/15/24 at 0900, Until Discontinued, Routine 09 (Given - Provider: Kosta Dugan RN) 0851 (Given - Provider: Marilee Fabian RN) 0811 (Given - Provider: Kosta Dugan RN) mometasone-formoterol (Dulera 100) 100-5 MCG/ACT inhaler 2 puff(Linked Group 1) 2 puff, Inhalation, 2 times daily, First dose on Fri08/16/24 at 2100, Until Discontinued 928 (Not Given - Provider: Kosta Dugan RN - Reason: Patient/family refused - Comment: Pt. stated she doesnt take them in the morning.)2130 (Given - Provider: Puja Le RN) 0910 (Given - Provider: Marilee Fabian RN)2013 (Given - Provider: Jennifer Carroll, EVITA) 0816 (Not Given - Provider: Kosta Dugan RN - Reason: Patient/family refused) mycophenolate (Cellcept) capsule 1,000 mg 1,000 mg, Oral, 2 times daily, First dose on Fri08/16/24 at 1145, Until Discontinued, Routine 0930 (Given - Provider: Kosta Dugan RN)2116 (Given - Provider: Puja Le RN) 0851 (Given - Provider: Marilee Fabian, EVITA)2007 (Given - Provider: Jennifer Carroll, EVITA) 0811 (Given - Provider: Kosta Dugan, EVITA) ondansetron ODT (Zofran-ODT) disintegrating tablet 4 mg (COMPLETED)(Linked Group 2) 4 mg, Oral, Once, 1 dose, On Fri08/22/24 at 1130, Routine 1135 (Given - Provider: Kosta Dugan, EVITA) sodium chloride 0.9 % flush 10 mL(Linked Group 3) 10 mL, Intravenous, Every 12 hours, First dose on Fri08/14/24 at 1715, Until Discontinued, Routine 0930 (Given - Provider: Kosta Dugan RN)2125 (Given - Provider: Puja Le, EVITA) 0854 (Given - Provider: Marilee Fabian, EVITA)2008 (Given - Provider: Jennifer Carroll, EVITA) 0811 (Given - Provider: Kosta Dugan, EVITA) spironolactone (Aldactone) tablet 12.5 mg 12.5 mg, Oral, Daily, First dose on Fri08/24/24 at 1345, Until Discontinued, Routine 1434 (Not Given - Provider: Kosta Dugan, EVITA - Reason: Patient/family refused) Tiotropium [place] Monohydrate (Spiriva Respimat) 2.5 MCG/ACT inhaler 2 puff(Linked Group 1) 2 puff, Inhalation, Daily, First dose on Fri08/16/24 at 1600, Until Discontinued 0929 (Not Given - Provider: Kosta Dugan RN - Reason: Patient/family refused - Comment: Pt. stated she doesnt take them in the morning.) 0910 (Given - Provider: Marilee Fabian, RN) 0815 (Not Given - Provider: Kosta [...] Discontinued, Routine 1742 (Given - Provider: Kosta Dugan, EVITA) 1648 (Given - Provider: Marilee Fabian RN) PRN Medication Order 08/22/2024 08/23/2024 08/24/2024 acetaminophen (Tylenol) tablet 650 mg 650 mg, Oral, Every 6 hours PRN, Starting on Fri08/17/24 at 2237, Until Fri08/24/24 at 1720, Routine, mild pain, moderate pain, headaches, fever 0046 (Given - Provider: Mary Hopper RN) 2232 (Given - Provider: Jennifer Carroll RN) calcium carbonate (Tums) chewable tablet 500 mg [...] Kosta Dugan RN)2118 (Given - Provider: Puja Le, EVITA) sodium chloride 0.9 % flush 10 mL(Linked Group 3) 10 mL, Intravenous, As needed, Starting on 08/14/24 at 1710, Until Fri08/24/24 at 1720, Routine, line care Linked Groups Order Group 1: Tiotropium [place] Monohydrate (Spiriva Respimat) 2.5 MCG/ACT inhaler 2 [...] 1 dose, On 08/22/24 at 1130, Routine Or ondansetron (Zofran) injection 4 mg (COMPLETED) 4 mg, Intravenous, Once, 1 dose, On 08/22/24 at 1130, Routine Group 3: Insert peripheral IV (COMPLETED) Once, On Fri08/14/24 at 1711, For 1 occurrence And Saline lock IV (COMPLETED) Once, On Fri08/14/24 at 1711, For 1 occurrence And sodium chloride 0.9 [...] documented as of this encounter Care Teams Circuit Walker Relationship Specialty Start Date End Date Alisa Kunz DO [address] [id number] PCP - General Internal Medicine 03/13/21 Kodi Bustos DO [address] [phone] Surgeon Cardiothoracic Surgery 11/06/22 Sujit Arriola MD [address] [place] [address] Consulting Physician Pulmonary Disease 11/06/22 Sujit Reyes MD [address] [place] [address] Referring Physician 12/04/22 Zully Caldwell, [facility]ARY[employer] [employer] [address] TCM Nurse 07/16/24 08/15/24 [place]ina [place] [employer]illing Machine Operator 08/16/24 08/16/24 documented as of this encounter
--- OUTSIDE RECORDS SUMMARY | 2024-08-27 13:30 | XMS_ITS | Encounter Summary ---
[facility] Address [address] [place] [address] Care Team Providers Care Skoog Patching Machine Operator Name Role Phone Alisa Kunz Primary Care Provider +1- [phone] Encounter Details Date Type Department Care Team (Latest Contact Info) Description 08/27/2024 1:30 PM EDT Anticoagulation Visit [facility] [address] [facility] [address] [place] [address] Left ventricular apical thrombus (Primary Dx); Left ventricular apical thrombus without [place] Social History Tobacco Use Types Packs/Day Years [...] Laughlin, PharmD - 08/27/2024 1:30 PM EDT [facility] Anticoagulation Clinic Progress Note Patient Demographics Method of INR reporting: [employer] Home Monitor SN [id number] Estimated OOP Cost: Indication: Left Ventricular Atypical Thrombus (~2012) Referring Provider Nanette Pryor APRN Reason patient is not on a DOAC: Goal INR: 2-3 Warfarin Start Date ~02/12/24 Reason patient is not on home monitor: [id number]: Planned Duration of Therapy Indefinite Relevant medical [...] - HM 1.4 - Clinic 1.32 - SLAB WORKER Notes Admitted Rec'd 05/27 HM 1-BILL TODAY HM 2- no leonid; In clinic HM 3 - no bill HM 4 - no bill HM 1- BILL TODAY HM 2 - no bill Rec'd 08/11 HM 3 - no bill Patient Contact Information Verbal release: Signed 03/05/24 Preferred contact number: [phone] Alternative contact number(s): [phone] (Doron) [phone] (Ruthie) [phone] (Madyson) Patient Appropriate for WarfNoCall ? No [...] initially held and then restarted 08/20. Had tie loader salad yesterday or day before with regular [...] Test strips on hand: 8 Barcode number: [id number] Test strip LOT: [id number] EXP: 03/2026 Serial number: [id number] Supplies billing code used: last 08/04/24] - Next must be on or after 09/01/24 Transfer Tube Lot number: [id number] Safety Lancets: Lot: Exp: Billing: bill must be completed every 4th encounter that falls outside of 28 days from last visit PLEASE REFER TO ANTICOAGULATION TRAINING POWERPOINT FOR BILLING. Needs to use in clinic remote appointment for encounter. Deejay Laughlin, PharmD, BCPS 08/27/2024 15:33 EDT documented in this encounter Plan of Treatment Upcoming Encounters Date Type Department Care Team (Late st Contact Info) Description 10/21/2024 2:15 PM EDT Office Visit [facility] SLEEP MEDICINE [address] [place] [address] Shannen Horta, OIL BURNER JOURNEYMAN [address] [place] [address] 12/02/2024 3:30 PM EDT Office Visit [facility] CARDIOLOG[facility] [address] [facility] [place] [address] Sujit Reyes MD [address] [facility] [address] [place] [address] 01/19/2025 1:45 PM EST Office Visit [facility] [address] [facility] [address] [place] [phone] Naveen Velasquez MD [address] [facility] [address] [place] [address] Scheduled Orders Name Type Priority Associated Diagnoses Orde r Schedule Protime-INR Lab STAT Left ventricular apical thrombus Left ventricular apical thrombus without [place] Twice a Week for 52 Occurrences starting 08/27/2024 until 08/27/2025, 1 completed documented as of this encounter Procedures Procedure Name Priority Date/Time Associated Diagnosis Comments POCT PROTIME - INR Routine 08/27/2024 2: 16 PM EDT documented in this encounter Results * (ABNORMAL) Protime-INR (08/27/2024 3:01 PM EDT) [facility] 17.2(H) 12.2 - 15.3 Seconds 08/27/2024 3:21 PM EDT [facility] INR 1.32(H) 0.89 - 1.12 08/27/2024 3:21 PM EDT [facility] Blood Venipuncture / Unknown 08/27/2024 3:01 PM EDT 08/27/2024 3:01 PM EDT us Nanette Pryor OIL BURNER JOURNEYMAN LAB BLOOD ORDERABLES Fi nal Result [facility]
[address] [place] [address], * (ABNORMAL) POC Protime / INR (08/27/2024 2:16 PM EDT) Protime 16.8(H) 10.0 - 13.8 seconds 08/27/2024 2:20 PM EDT [facility] INR 1.4(H) 0.91 - 1.09 08/27/2024 2:20 PM EDT [facility] Blood 08/27/2024 2:16 PM EDT 08/27/2024 2:20 PM EDT Nanette Pryor OIL BURNER JOURNEYMAN POINT OF CARE TEST ORDE LAWANDA Final Result [facility]
[address] [phone] documented in this encounter Visit Diagnoses Diagnosis Left ventricular apical thrombus- Primary Left ventricular apical thrombus without [place] documented in this encounter Care Teams Skoog Patching Machine Operator Relationship Specialty Start Date End Date Alisa Kunz DO [address] [place] [address] PCP - General Internal Medicine 04/26/21 documented as of this encounter
--- OUTSIDE RECORDS SUMMARY | 2024-08-27 14:55 | XMS_ITS | Encounter Summary ---
Author Organization [facility] Address [address] [place] [address] Care Team Providers Care Neuropsychiatric Aide Name Role Phone Alisa Kunz Primary Care Provider +1- [phone] Encounter Details Date Type Department Care Team (Late st Contact Info) Description 08/27/2024 2:55 PM EDT Lab [facility] [address] [facility] [place] [address] Left ventricular apical thrombus; Left ventricular apical thrombus without [place] Social History Tobacco Use Types Packs/Day Years [...] on file documented as of this encounter Plan of Treatment Upcoming Encounters Date Type Department Care Team (Late st Contact Info) Description 10/21/2024 2:15 PM EDT Office Visit [facility] SLEEP MEDICINE [address] [place] [address] Shannen Horta, SCHOOL YEAR NANNY [address] [facility] [address] [place] [address] 12/02/2024 3:30 PM EDT Office Visit [facility] CARDIOLOG[facility] [address] [place] [address] Sujit Reyes MD [address] [facility] [address] [place] [address] 01/19/2025 1:45 PM EST Office Visit [facility] [address] [facility] [address] [place] [address] Navene Velasquez MD [address] [facility] [address] [place], [place] [id number] documented as of this encounter Procedures Procedure Name Priority Date/Time Associated Diagnosis Comments PROTIME-INR STAT 08/27/2024 3:01 PM EDT Left ventricular apical thrombus Left ventricular apical thrombus without [place] documented in this encounter Results * (ABNORMAL) Protime-INR (08/27/2024 3:01 PM EDT) Protime 17.2(H) 12.2 - 15.3 Seconds 08/27/2024 3:21 PM EDT [facility] INR 1.32(H) 0.89 - 1.12 08/27/2024 3:21 PM EDT [facility] Blood Venipuncture / Unknown 08/27/2024 3:01 PM EDT 08/27/2024 3:01 PM EDT Nanette Pryor SCHOOL YEAR NANNY LAB BLOOD ORDERABLES Fi nal Result [facility]
[address] [phone] documented in this encounter Visit Diagnoses Diagnosis Left ventricular apical thrombus Left ventricular apical thrombus without [place] documented in this encounter Care Teams Neuropsychiatric Aide Relationship Specialty Start Date End Date Alisa Kunz DO [address] [place] [address] PCP - General Internal Medicine 04/26/21 documented as of this encounter
--- OUTSIDE RECORDS SUMMARY | 2024-09-08 11:20 | XMS_ITS | Encounter Summary ---
Author Organization [facility] Address [address] [place] [address] Care Team Providers Care Petroleum Terminal Plant Operator Name Role Phone Alisa Kunz DO Primary Care Provider [phone] Kodi Bustos DO Unavailable [phone] Sujit Arriola MD Unavailable [phone] Sujit Reyes MD Unavailable [phone] Patricia Yañez LPN Unavailable Unavailab Zee Lr DO Unavailable [phone] Reason for Referral * Imaging (Urgent) - Closed Specialty Diagnoses / Procedures Referred By Contdarwin t Referred To Contact Cardiology Diagnoses Localized swelling, mass and lump, left upper limb Procedures VAS US Venous Duplex Upper Extremity Unilateral Left Alisa Kunz DO [address] [address] Phone: tel: fax: Referral ID Status Reason Start Date Expiration Date V isits Requested Visits Authorized [id number] Closed Perform Procedure 09/08/2024 03/10/2026 1 1 Encounter Details Date Type Department Care Team (Late st Contact Info) Description 09/08/2024 11:20 AM EDT Office Visit [facility] Internal Medicine [address] [place] [address] Alisa Kunz, [address] [place] [address] Shortness of breath (Primary Dx); [...] week 08/30/2022 How often do you attend [facility] or druze services? 1 to 4 times per year 08/30/2022 Do you belong to any clubs o r organizations such as druze groups, unions, fraternal or athletic groups, or [...] Recorded Patient Health Questionnaire-2 Score 0 09/08/2024 [facility] of Occupat ional Health - Occupational Stress [...] place to sleep or slept in a chcf (including now)? No 12/30/2023 PHQ-9 Answer Date [...] in the past 12 m [facility], were you homeless or living in a chcf (including now)? No 05/27/2024 Humiliation, Afraid, Rape, [...] in the past 12 m [facility], were you homeless or living in a chcf (including now)? No 09/17/2024 CAGE ASSESSMENT Answer [...] drink first t anselmo in the morning (EYE-PBX MANAGER) to steady your nerves or to [...] Month) No 09/15/2024 8:00 AM EDT Flora Raimrez RN 6. Suicidal Behavior (Lifetime) No 8:00 AM EDT Sunny Ramirez RN documented as of this encounter Miscellaneous Notes * Progress Notes - Zee Lazar DO - 09/08/2024 11:20 AM EDT Transitional Care Management Progress Note: [id number] Visit Patient: Michelle Felipe : 1950 PCP: [...] swelling with mild dusky erythema and decreased editorial intern strength s/t swelling, +mild right ankle edema [...] bites, or rashes noted over BUE. Decreased editorial intern strength in left hand s/t swelling. Otherwise [...] (08/17/24) showing mild pHTN. - Follows with [facility]. - Continue home Lasix 40 mg [...] PCP, on 10/18/2024 Zee Lazar DO PGY-1, [facility] Internal Medicine [1] Past Medical History: Diagnosis [...] or viral conjunctivitis vs. Scleritis. - Needs [facility] eye exam. - Was ableto get patient in with [facility] ophthalmology right after our clinic appointment (where [...] CARDIAC PACEMAKER PLACEMENT N/A Pacemaker Placement from [facility] CARPAL TUNNEL RELEASE N/A Neuroplasty Decompression Median Nerve At Carpal Tunnel from [facility] CERVICAL BIOPSY W/ LOOP ELECTRODE EXCISION 2010 SECTION, CLASSIC 1977, 1979 SECTION, LOW TRANSVERSE N/A Section from [facility] COLONOSCOPY N/A Complete Colonoscopy from [facility] CORONARY ARTERY BYPASS GRAFT N/A CABG from [facility] EYE SURGERY N/A Eye Surgery from [facility] FRACTURE SURGERY SPINE SURGERY THORACENTESIS TOE SURGERY Left 02/07/2024 hematoma removal of upper skin on L big toe TONSILLECTOMY N/A Tonsillectomy from [facility] [3] Family History Problem Relation Name Age of Onset Conversions - Other Mother cindi stamper alfredito kelin Goiter (Diffuse Nontoxic) Heart disease Mother cindi stamper alfredito kelin Hypertension Mother cindi stamper alfredito kelin Stroke Mother cindi stamper alfredito kelin COPD Mother cnidi stamper alfredito kelin Alpha-1 antitrypsin deficiency Mother cindi stamper alfredito kelin Arthritis Father Doron E [place] Hypercholesterolemia Father Doron E [place] Obesity Father Doron E Alfredito COPD Father Doron E [place] Alcohol abuse Father Doron E Alfred[place] Diabetes [...] Description 10/25/2024 10:00 AM EDT Office Visit [facility] Nephrology, Bone & Mineral Metabolism [address], [address] [place] [address] Bryon Brandon MD [address] [place] [phone] 10/27/2024 1:40 PM EDT Office Visit [facility] Endocrinology [address] [place] [phone] Anne-Marie Kolb, INFORMATION SYSTEMS DIRECTOR [address] [place] [phone] 12/23/2024 4:00 PM EDT Office Visit [facility] Medicine Specialties [address], [address] [place] [phone] Lavern Shoemaker MD [address] [place], [place] [id number] 02/02/2025 8:40 AM EST Office Visit [facility] Internal Medicine [address], [address] [place] [address] Alisa Kunz, DO [address] [place] [phone] documented as of this encounter Procedures Procedure [...] - 99 mg/dL 09/08/2024 4:06 PM EDT [facility] BUN, Plasma 24(H) 8 - 23 mg/dL 09/08/2024 4:06 PM EDT [facility] Creatinine, Plasma 0.92 0.60 - 1.10 mg/dL 09/08/2024 4:06 PM EDT [facility] BUN/Creatinine Ratio 26 09/08/2024 4:06 PM EDT [facility] Sodium, Plasma 131(L) 136 - 145 mmol/L 09/08/2024 4:06 PM EDT [facility] Potassium, Plasma 4.0 3.6 - 4.9 mmol/L 09/08/2024 4:06 PM EDT [facility] Chloride, Plasma 90(L) 97 - 107 mmol/L 09/08/2024 4:06 PM EDT [facility] CO2, Plasma 27 22 - 29 mmol/L 09/08/2024 4:06 PM EDT [facility] Anion Gap 14 6 - 16 mmol/L 09/08/2024 4:06 PM EDT [facility] Total Calcium, Plasma 8.9 8.9 - 10.2 mg/dL 09/08/2024 4:06 PM EDT [facility] Total Protein 7.4 6.3 - 7.9 g/dL 09/08/2024 4:06 PM EDT [facility] Albumin, Plasma 3.4(L) 3.5 - 5.2 g/dL 09/08/2024 4:06 PM EDT [facility] AST, Plasma 34 10 - 35 U/L 09/08/2024 4:06 PM EDT [facility] ALT, Plasma 25 10 - 35 U/L 09/08/2024 4:06 PM EDT [facility] Alkaline Phosphatase, Plasma 116 46 - 142 U/L 09/08/2024 4:06 PM EDT [facility] Total Bilirubin, Plasma 0.4 0.2 - 1.1 mg/dL 09/08/2024 4:06 PM EDT [facility] eGFRcr 65.9 mL/min/1.7 3m*2 09/08/2024 4:06 PM EDT [facility] Comment:Reported eGFRcr in m L/min/1.73m2 is based the CKD-EPI 2020 equation that does not use a race coefficient. Blood Venous blood specimen / Unknown Venipuncture / Unknown 09/08/2024 1:33 PM EDT 09/08/2024 1:33 PM EDT us Alisa L Ze DO LAB BLOOD ORDERABLES Final Res ult [facility] [address] [place] [address] * (ABNORMAL) CBC and Differential (09/08/2024 1:33 PM EDT) WBC Count 7.66 3.70 - 10.30 10*3/uL LAB HEMATOLOGY METHOD 09/08/2024 4:11 PM EDT [facility] RBC Count 3.47(L) 3.90 - 5.20 10*6/uL LAB HEMATOLOGY METHOD 09/08/2024 4:11 PM EDT [facility] HGB 10.2(L) 11.2 - 15.7 g/dL LAB HEMATOLOGY METHOD 09/08/2024 4:11 PM EDT [facility] HCT 32.8(L) 34.0 - 45.0 % LAB HEMATOLOGY METHOD 09/08/2024 4:11 PM EDT [facility] Platelet Count 534(H) 155 - 369 10*3/uL LAB HEMATOLOGY METHOD 09/08/2024 4:11 PM EDT [facility] MCV 95 79 - 98 fL LAB HEMATOLOGY METHOD 09/08/2024 4:11 PM EDT [facility] MCH 29.4 26.0 - 32.0 pg LAB HEMATOLOGY METHOD 09/08/2024 4:11 PM EDT [facility] MCHC 31.1 30.7 - 35.5 g/dL LAB HEMATOLOGY METHOD 09/08/2024 4:11 PM EDT [facility] RDW 15.4(H) 11.5 - 14.5 % LAB HEMATOLOGY METHOD 09/08/2024 4:11 PM EDT [facility] MPV 9.3 8.8 - 12.5 fL LAB HEMATOLOGY METHOD 09/08/2024 4:11 PM EDT [facility] nRBC 0.0 <=0.0 per 100 WBCs LAB HEMATOLOGY METHOD 09/08/2024 4:11 PM EDT [facility] Differential Type Automated LAB HEMATOLOGY METHOD 09/08/2024 4:11 PM EDT [facility] Neutrophils % 80 % LAB HEMATOLOGY METHOD 09/08/2024 4:11 PM EDT [facility] Lymphocytes % 8 % LAB HEMATOLOGY METHOD 09/08/2024 4:11 PM EDT [facility] Monocytes % 9 % LAB HEMATOLOGY METHOD 09/08/2024 4:11 PM EDT [facility] Eosinophils % 1 % LAB HEMATOLOGY METHOD 09/08/2024 4:11 PM EDT [facility] Basophils % 1 % LAB HEMATOLOGY METHOD 09/08/2024 4:11 PM EDT [facility] Immature Granulocytes % 1 % LAB HEMATOLOGY METHOD 09/08/2024 4:11 PM EDT [facility] Neutrophils Absolute 6.18(H) 1.60 - 6.10 10*3/uL LAB HEMATOLOGY METHOD 09/08/2024 4:11 PM EDT [facility] Lymphocytes Absolute 0.64(L) 1.20 - 3.90 10*3/uL LAB HEMATOLOGY METHOD 09/08/2024 4:11 PM EDT [facility] Monocytes Absolute 0.65 0.30 - 0.90 10*3/uL LAB HEMATOLOGY METHOD 09/08/2024 4:11 PM EDT [facility] Eosinophils Absolute 0.06 0.00 - 0.50 10*3/uL LAB HEMATOLOGY METHOD 09/08/2024 4:11 PM EDT [facility] Basophils Absolute 0.08 0.00 - 0.10 10*3/uL LAB HEMATOLOGY METHOD 09/08/2024 4:11 PM EDT [facility] Immature Granulocytes Absolute 0.05 0.00 - 0.06 10*3/uL LAB HEMATOLOGY METHOD 09/08/2024 4:11 PM EDT [facility] Blood Venous blood specimen / Unknown Venipuncture / Unknown 09/08/2024 1:33 PM EDT 09/08/2024 1:33 PM EDT [facility] - 09/08/2024 4:11 PM EDT Therapeutic decision making should be based on absolute values, rather than percentages. us Alisa L Ze DO LAB BLOOD ORDERABLES Final Res ult Performing Organization Address City/[facility]/ZIP Co de Phone Number [facility] [address] [place] [address] * Ferritin (09/08/2024 1:33 PM EDT) Ferritin, Serum 102 13 - 150 ng/mL 09/08/2024 4:37 PM EDT [facility] Blood Venous blood specimen / Unknown Venipuncture / Unknown 09/08/2024 1:33 PM EDT 09/08/2024 1:33 PM EDT us Alisa L Ze DO LAB BLOOD ORDERABLES Final Res ult Performing Organization Address [facility]/ZIP Co de Phone Number [facility] [address] [place] [address] * (ABNORMAL) Iron & Total Iron Binding Capacity, Plasma (Includes Transferrin) (09/08/2024 1:33 PM EDT) Iron, Plasma 26(L) 30 - 160 ug/dL 09/08/2024 4:06 PM EDT [facility] Transferrin, Plasma 262 200 - 360 mg/dL 09/08/2024 4:06 PM EDT [facility] Total Iron Binding Capacity, Plasma 328 240 - 450 ug/mL 09/08/2024 4:06 PM EDT [facility] Transferrin Saturation 8(L) 14 - 50 % 09/08/2024 4:06 PM EDT [facility] Blood Venous blood specimen / Unknown Venipuncture / Unknown 09/08/2024 1:33 PM EDT 09/08/2024 1:33 PM EDT us Alisa L Ze DO LAB BLOOD ORDERABLES Final Res ult Performing Organization Address [facility]/ZIP Co de Phone Number [facility] [address] [place] [address] * SARS-CoV-2, Flu A, Flu B, and RSV (09/08/2024 1:09 PM EDT) SARS CoV-2/COVID-19 RNA PCR Result Not Detected Not Detected 09/09/2024 10:48 AM EDT [facility] Influenza A Virus PCR Result Not Detected Not Detected 09/09/2024 10:48 AM EDT [facility] Influenza B Virus PCR Result Not Detected Not Detected 09/09/2024 10:48 AM EDT [facility] Respiratory Syncytial Virus (RSV) PCR Result Not Detected Not Detected 09/09/2024 10:48 AM EDT [facility] Swab Nasopharyngeal structure / Unknown Non-blood Collection / Unknown 09/08/2024 1:09 PM EDT 09/08/2024 4:50 PM EDT Narrative [facility] - 09/09/2024 10:48 AM EDT [...] This test was performed on the BD SocialFlow Respiratory Viral Panel, a PCR-based method. Negative [...] MICROBIOLOGY - GENERAL ORD ERABLES Final Result [facility] [address] [place] [address] documented in this encounter Visit Diagnoses Diagnosis [...] documented as of this encounter Care Teams Petroleum Terminal Plant Operator Relationship Specialty Start Date End Date Alisa Kunz DO [address] [place] [address] PCP - General Internal Medicine 03/13/21 Kodi Bustos DO [address] [phone] Surgeon Cardiothoracic Surgery 11/06/22 Sujit Arriola MD [address] [place] [address] Consulting Physician Pulmonary Disease 11/06/22 Sujit Reyes MD [address] [place] [address] Referring Physician 12/04/22 Patricia Yañez LPN [facility] TCM Nurse 08/25/24 10/17/24 Zee Lazar DO [address] [place], [place] [phone] Resident 09/08/24 documented as of this encounter
--- OUTSIDE RECORDS SUMMARY | 2024-09-08 13:36 | XMS_ITS | Encounter Summary ---
Author Organization [facility] Address [address] [place] [address] Care Team Providers Care Candle Wrapper Name Role Phone Alisa Kunz DO Primary Care Provider Kodi Bustos DO Unavailable [phone] Sujit Arriola MD Unavailable [phone] Sujit Reyes MD Unavailable [phone] Patricia Yañez LPN Unavailable Unavailab Zee Lr DO Unavailable [phone] Encounter Details Date Type Department Care Team (Latest Contact Info) Description 09/08/2024 1:36 PM EDT - 09/08/2024 1:54 PM EDT Hospital Encounter [place] [facility] [address], [address]st [place] [phone] Shortness of breath Discharge Disposition: Home or [...] often do you attend chur ch or sikhism services? 1 to 4 times per year 08/30/2022 Do you belong to any clubs o r organizations such as yarsanism groups, unions, fraternal or athletic groups, or [...] Recorded Patient Health Questionnaire-2 Score 0 09/08/2024 [facility] of Occupat ional Health - [...] in the past [address] [facility], were you homeless or living in [...] in the past [address] 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 0 08/14/2024 CAGE Questionnaire Score 0 025 Utilities Answer Date Recorded In the past 12 months has th e [employer], gas, oil, or water company threatened to [...] No Risk Indicated 09/15/2024 8:00 AM EDT uSnny Ramirez RN * If you checked off [...] DIAL)Indications:T ype 1 diabetes mellitus with hyperglycemia ([facility]) Inject 14 Units under the skin every morning. 4.5 mL 3 08/04/2024 insulin lispro (HumaLOG KWIKPEN) 100 UNIT/ML injection penIndications:Typ e 1 diabetes mellitus with hyperglycemia ([facility]/HCC) Inject 2-6 units before meals plus 1:60>150. [...] tabletIndications: Systemic lupus erythematosus (SLE) in adult ([facility]) Take 2 tablets by mouth 2 times a day. 360 tablet 1 08/27/2024 oxygen (O2) gas Inhale 2 L nightly. via nasal canula Pitavastatin Calcium (Livalo) 4 MG tabletIndications: Type 1 diabetes mellitus with other specified complication ([facility]),Dyslipid emia Take 1 tablet by mouth daily. [...] lupus erythematosus (SLE) in adult ([facility]) Take 1 [...] Upcoming Encounters Date Type Department Care Team (Gurjit st Contact Info) Description 10/25/2024 10:00 AM EDT Office Visit [facility] Nephrology, Bone & Mineral Metabolism [address], [address] [place] [address] Bryon Brandon MD [address] [place] [address] 10/27/2024 1:40 PM EDT Office Visit [facility] Endocrinology [address] [place] [phone] Anne-Marie Kolb L, LIABILITY CLAIMS REPRESENTATIVE [address] [facility] [address] [place] [phone] 12/23/2024 4:00 PM EDT Office Visit [facility] Medicine Specialties [address], [address]nd [place] [address] Lavern Shoemaker MD [address] [place], [place] [phone] 02/02/2025 8:40 AM EST Office Visit [facility] Internal Medicine [address], 3rd [place] [address] Alisa Kunz L, DO [address] [place] [address] documented as of this encounter [...] documented as of this encounter Care Teams Candle Wrapper Relationship Specialty Start Date End Date Alisa Kunz DO [address] [place] [phone] PCP - General Internal Medicine 03/13/21 Kodi Bustos DO [address] [address] Surgeon Cardiothoracic Surgery 11/06/22 Sujit Arriola MD [address] [place] [address] Consulting Physician Pulmonary Disease 11/06/22 Sujit Reyes MD [address] [place] [address] Referring Physician 12/04/22 Patricia Yañez LPN [facility] TCM Nurse 08/25/24 10/17/24 Zee Lazar DO [address] [place], [place] [phone] Resident 09/08/24 documented as of this encounter
--- OUTSIDE RECORDS SUMMARY | 2024-09-08 13:55 | XMS_ITS | Encounter Summary ---
Author Organization [facility] Address [address] [place] [address] Care Team Providers Care Bank And Savings Securities Trader Name Role Phone Alisa Kunz DO Primary Care Provider [phone] Kodi Bustos DO Unavailable [phone] Sujit Arriola MD Unavailable [phone] Sujit Reyes MD Unavailable [phone] Patricia Yañez LPN Unavailable Unavailab Zee Lr DO Unavailable [phone] Reason for Referral * Imaging (Urgent) - Closed Specialty Diagnoses / Procedures Referred By Contac t Referred To Contact Cardiology Diagnoses Localized swelling, mass and lump, left upper limb Procedures VAS US Venous Duplex Upper Extremity Unilateral Left Alisa Kunz DO [address] [address] Phone: tel: fax: Referral ID Status Reason Start Date Expiration Date V isits Requested Visits Authorized [id number] Closed Perform Procedure 09/08/2024 03/10/2026 1 1 Reason for Visit * Imaging (Urgent) - Closed Specialty Diagnoses / Procedures Referred By Contac t Referred To Contact Cardiology Diagnoses Localized swelling, mass and lump, left upper limb Procedures VAS US Venous Duplex Upper Extremity Unilateral Left Ze, Alisa L, DO [address] [place] [address] Phone: tel: fax: Referral ID Status Reason Start Date Expiration Date V isits Requested Visits Authorized [id number] Closed Perform Procedure 09/08/2024 03/10/2026 1 1 Encounter Details Date Type Department Care Team (Latest Contact Info) Description 09/08/2024 1:55 PM EDT - 09/08/2024 11:59 PM EDT Hospital Encounter [facility] [address] [place] [address] Localized swelling, mass and lump, [...] Recorded Patient Health Questionnaire-2 Score 0 09/08/2024 [facility] - Occupational Stress Questionnaire Answer [...] living in a prison (including now)? No 09/13/2024 CAGE ASSESSMENT Answer [...] drink first t anselmo in the morning (EYE-SALES INSPECTOR) to steady your nerves or to get rid of a hangover? 0 08/14/2024 CAGE Questionnaire Score 0 025 Utilities Answer Date Recorded In the past 12 months has th e [employer], oil, or water [employer] threatened to shut off services in your [...] DIAL)Indications:T ype 1 diabetes mellitus with hyperglycemia ([facility]) Inject 14 Units under the skin every morning. 4.5 mL 3 08/04/2024 6 insulin lispro (HumaLOG KWIKPEN) 100 UNIT/ML injection penIndications:Typ e 1 diabetes mellitus with hyperglycemia ([facility]) Inject 2-6 units before meals plus 1:60>150. [...] tabletIndications: Systemic lupus erythematosus (SLE) in adult ([facility]) Take 2 tablets by mouth 2 times a day. 360 tablet 1 08/27/2024 oxygen (O2) gas Inhale 2 L nightly. via nasal canula Pitavastatin Calcium (Livalo) 4 MG tabletIndications: Type 1 diabetes mellitus with other specified complication ([facility]),Dyslipid emia Take 1 tablet by mouth daily. [...] tabletIndications: Systemic lupus erythematosus (SLE) in adult ([facility]) Take 1 tablet by mouth daily. 90 [...] 10/25/2024 10:00 AM EDT Office Visit [facility]phrology, Bone & Mineral Metabolism [address] [facility], [address] [place] [address] Bryon Brandon MD [address] [place] [address] 10/27/2024 1:40 PM EDT Office Visit [facility] Endocrinology [address] [place] [address] Anne-Marie Kolb, CNMT [address] [place] [address] 12/23/2024 4:00 PM EDT Office Visit [facility] Medicine Specialties [address] [place] [address] Lavern Shoemaker MD [address] [place], [place] [phone] 02/02/2025 8:40 AM EST Office Visit [facility] Internal Medicine [address]rd [place] [address] Alisa Kunz, DO [address] [place] [address] documented as of this encounter [...] documented as of this encounter Care Teams Bank And Savings Securities Trader Relationship Specialty Start Date End Date Alisa Kunz DO [address] [address] PCP - General Internal Medicine 03/13/21 Kodi Bustos DO [address] [address] Surgeon Cardiothoracic Surgery 11/06/22 Sujit Arriola MD [address] [place] [address] Consulting Physician Pulmonary Disease 11/06/22 Sujit Reyes MD [address] [place] [address] Referring Physician 12/04/22 Patricia Yañez LPN [facility] TCM Nurse 08/25/24 10/17/24 Zee Lazar DO [address] [place] [address] Resident 09/08/24 documented as of this encounter
--- OUTSIDE RECORDS SUMMARY | 2024-09-22 11:30 | XMS_ITS | Encounter Summary ---
[facility] Address [address] [place] [address] Care Team Providers Care Roping Machine Tender Name Role Phone Alisa Kunz Primary Care Provider +1- [phone] Encounter Details Date Type Department Care Team (Latest Contact Info) Description 09/22/2024 11:30 AM EDT Anticoagulation Visit [facility] [address] [facility] [address] [place] [phone] Left ventricular apical thrombus (Primary Dx) Social [...] Beal, PharmD - 09/22/2024 11:30 AM EDT [facility] Anticoagulation Clinic Progress Note Patient Demographics Method of INR reporting: [employer] Home Monitor SN [id number] Estimated OOP Cost: Indication: Left Ventricular Atypical Thrombus (~2012) Referring Provider Nanette Pryor APRN Reason patient is not on a DOAC: Goal INR: 2-3 Warfarin Start Date ~02/12/24 Reason patient is not on home monitor: [id number]: Planned Duration of Therapy Indefinite Relevant medical [...] - HM 1.4 - Clinic 1.32 - KEYSMITH 2.8 2.0 Notes Admitted [facility] Rec'd 05/27 [...] Verbal release: Signed 03/05/24 Preferred contact number: [phone] Alternative contact number(s): [phone] (Doron) [phone] (Ruthie) [phone] (Madyson) Patient Appropriate for WarfNoCall ? No [...] at this time. Order sent to [facility] Reema Beal PharmD 09/22/2024 12:04 EDT documented in this encounter Plan of Treatment Upcoming Encounters Date Type Department Care Team (Late st Contact Info) Description 10/21/2024 2:15 PM EDT Office Visit [facility] [address] [facility] [place] [address] Shannen Horta, SMASHER HAND [address] [facility] [address] [place] [address] 12/02/2024 3:30 PM EDT Office Visit [facility] C[facility] [address] [place] [address] [address] Sujit Reyes MD [address]20 [facility] [address] [place] [address] 01/19/2025 1:45 PM EST Office Visit [facility] [address] [facility] [address] [place] [address] Naveen Velasquez MD [address] [facility] [address] [place], [place] [id number] documented as of this encounter Procedures Procedure Name Priority Date/Time Associated Diagnosis Comments POCT PROTIME - INR Routine 09/22/2024 11 :47 AM EDT documented in this encounter Results * (ABNORMAL) POC Protime / INR (09/22/2024 11:47 AM EDT) Protime 24.2(H) 10.0 - 13.8 seconds 09/22/2024 11:49 AM EDT [facility] INR 2.0(H) 0.91 - 1.09 09/22/2024 11:49 AM EDT [facility] Blood 09/22/2024 11:4 7 AM EDT 09/22/2024 11:49 AM EDT LUIS Dimas POINT OF CARE TEST ORDERAB LES Final Result [facility]
[address] [place] [address], documented in this encounter Visit Diagnoses Diagnosis Left ventricular apical thrombus- Primary documented in this encounter Care Teams Roping Machine Tender Relationship Specialty Start Date End Date Alisa Kunz DO [address] [place] [address] PCP - General Internal Medicine 04/26/21 documented as of this encounter
--- OUTSIDE RECORDS SUMMARY | 2024-09-27 13:20 | XMS_ITS | Encounter Summary ---
Author Organization [facility] Address [address] [place] [address] Care Team Providers Care Online Media Buyer Name Role Phone Alisa Kunz Torri DO Primary Care Provider Kodi Bustos DO Unavailable [phone] Sujit Arriola MD Unavailable [phone] Sujit Reyes MD Unavailable [phone] Patricia Yañez LPN Unavailable Unavailab Zee Lr DO Unavailable [phone] Reason for Visit * Reason Comments Follow-up Encounter Details Date Type Department Care Team (Late st Contact Info) Description 09/27/2024 1:20 PM EDT Office Visit [facility] [address] [place] [address] Ashley, June R, BIT SANDER [address] [phone] Pleural effusion (Primary Dx); Longstanding persistent atrial [...] often do you attend chur ch or orthodoxy services? 1 to 4 times per year 08/30/2022 Do you belong to any clubs o r organizations such as holiness groups, unions, fraternal or athletic groups, or [...] Recorded Patient Health Questionnaire-2 Score 0 09/08/2024 [facility] of Occupat ional Health - [...] in a usp (including now)? No 05/27/2024 Humiliation, Afraid, Rape, [...] living in a usp (including now)? No 09/17/2024 CAGE ASSESSMENT Answer [...] drink first t anselmo in the morning (EYE-CONGREGATIONAL CARE PASTOR) to steady your nerves or to get [...] We have made you an appointment with [facility] (Anticoagulation Clinic) as we discussed. Your appointment is on 09/28/24 at 1:00PM - Clinic staff recommended to also review your myChart if you need additional appointment details. [facility] [address], [address] [place] [address] Phone number: [phone] Go immediately to the ER with any chest pain/palpitations/shortness of breath, seizure like activity, or stroke like symptoms (for example but not limited to: slurred speech, dizziness, one sided weakness, altered gait, facial droop, sudden terrible headache or worst headache of life) * Progress Notes - Dinah Ramirez APRN - 09/27/2024 1:20 PM EDT Transitional Care Management Progress Note: Swql[facility]-[place] Visit Patient: Michelle Felipe : 1950 PCP: [...] levels >2 -Will set up appointment with [facility] -Continue home metoprolol [...] in the future. Patient is established with [facility] with next appt 10/18/24. Review [...] Health care maintenance -Patient is established with [facility] with next appt 10/18/24. Follow up appointments: [facility] 09/30/24, ENT 10/07/24, ENG 10/07/24, Cardiology 10/07/24, Pulm 10/14/24, [facility] 10/18/24, Nephrology 10/25/24, Endocrinology 10/27/24, [facility] 12/22/24, Cardiology 01/19/25, [facility] 02/02/25, [facility] 03/28/25 Note to patient: The Cures [...] clinical opinion of the practitioner. Dinah Ramirez, BIT SANDER 09/27/2024 1:27 PM [1] Past Medical History: [...] - Was ableto get patient in with [facility] ophthalmology right after our clinic appointment [...] CARDIAC PACEMAKER PLACEMENT N/A Pacemaker Placement from [employer] CARPAL TUNNEL RELEASE N/A Neuroplasty Decompression Median Nerve At Carpal Tunnel from [employer] CERVICAL BIOPSY W/ LOOP ELECTRODE EXCISION 2010 SECTION, CLASSIC 1976, 1979 SECTION, LOW TRANSVERSE N/A Section from [employer] COLONOSCOPY N/A Complete Colonoscopy from [employer] CORONARY ARTERY BYPASS GRAFT N/A CABG from [employer] EYE SURGERY N/A Eye Surgery from [employer] FRACTURE SURGERY SPINE SURGERY THORACENTESIS TOE SURGERY Left 02/07/2024 hematoma removal of upper skin on L big toe TONSILLECTOMY N/A Tonsillectomy from [employer] [3] Family History Problem Relation Name Age of Onset Conversions - Other Mother cindi stamper alfredito kelin Goiter (Diffuse Nontoxic) Heart disease Mother cindi stamper alfredito kelin Hypertension Mother cindi stamper alfredito kelin Stroke Mother cindi stamper alfredito kelin COPD Mother cindi stamper alfredito kelin Alpha-1 antitrypsin deficiency Mother cindi stamper alfredito kelin Arthritis Father Doron E [place] Hypercholesterolemia Father Doron E [place] Obesity Father Doron E Alfredito COPD Father Doron E Alfredito Alcohol abuse Father Doron E Alfredito Diabetes Sibling Cancer Other Doron E [place] Conversions - Other Other Goiter (Diffuse Nontoxic) Heart disease Other Cindi Marry Stamper [place] Kelin documented in this encounter Plan of Treatment Upcoming Encounters Date Type Department Care Team (Late st Contact Info) Description 10/25/2024 10:00 AM EDT Office Visit [facility] Nephrology, Bone & Mineral Metabolism [address], [address] [place] [phone] Bryon Brandon MD [address] [place] [address] 10/27/2024 1:40 PM EDT Office Visit [facility] [address] [place] [phone] Anne-Marie Kolb, BIT SANDER [address] [place] [address] 12/23/2024 4:00 PM EDT Office Visit [facility] Special[facility] [address], [address]nd [place] [address] Lavern Shoemaker MD [address] [place], [place] [phone] 02/02/2025 8:40 AM EST Office Visit [facility] Internal Medicine [address], [address]rd [place] [address] Alisa Kunz L, DO [address] [place] [address] documented as of this encounter [...] PM EDT 09/27/2024 2:29 PM EDT Narrative [facility] - 09/27/2024 5:42 PM EDT OPTIMAL INR RANGES FOR PATIENT ON ORAL ANTICOAGULANT THERAPY Prevention of venous thromboembolism INR 2.0 to 3.0 In patients with heart disease: Atrial fibrillation INR 2.0 to 3.0 Valvular heart disease INR 2.0 to 3.0 Tissue heart valves INR 2.0 to 3.0 Mechanical prosthetic valves INR 2.5 to 3.5 Prevention of recurrent [place] INR 2.5 to 3.5 us Dinah Ramirez BIT SANDER LAB BLOOD ORDERABLES Final Result [facility] [address] [place] [address] documented in this encounter Visit Diagnoses Diagnosis [...] documented as of this encounter Care Teams Online Media Buyer Relationship Specialty Start Date End Date Alisa Kunz DO [address] [place] [phone] PCP - General Internal Medicine 03/13/21 Kodi Bustos DO [address] [phone] Surgeon Cardiothoracic Surgery 11/06/22 Sujit Arriola MD [address] [place] [address] Consulting Physician Pulmonary Disease 11/06/22 Sujit Reyes MD [address] [place] [address] Referring Physician 12/04/22 Patricia Yañez LPN [facility]- [facility] TCM Nurse 08/25/24 10/17/24 Zee Lazar DO [address] [place], [place] [phone] Resident 09/08/24 documented as of this encounter
--- OUTSIDE RECORDS SUMMARY | 2024-10-07 12:50 | XMS_ITS | Encounter Summary ---
Author Organization Healthcare Address [address] [place] [address] Care Team Providers Care Miller Wood Flour Name Role Phone ZeAlisa willett Torri DO Primary Care Provider [phone] Kodi Bustos DO Unavailable [phone] Sujit Arriola MD Unavailable [phone] Sujit Reyes MD Unavailable [phone] Patricia Yañez LPN Unavailable Unavailab Zee Lr DO Unavailable [phone] Reason for Visit * Reason Comments Throat Problem Mouth feels like it is on fire * Consultation (Routine) - Closed Specialty Diagnoses / Procedures Referred By Contdarwin t Referred To Contact Otolaryngology Diagnoses Oral herpes simplex infection Alex Mg MD [address] [place] [address] Phone: tel: fax: [facility] [address] [place] [address] Phone: tel: fax: Referral ID Status Reason Start Date Expiration Date V isits Requested Visits Authorized [id number] Closed Specialty Services Required 09/15/2024 03/17/2026 1 1 Encounter Details Date Type Department Care Team (Late st Contact Info) Description 10/07/2024 12:50 PM EDT Office Visit [place] [facility] [address]rd [place] [address] Chris Pepe MD [address] [place] [address] Recurrent aphthous ulcer (Primary Dx); Systemic lupus erythematosus, unspecified SLE type, unspecified organ involvement status (CMS/HCC) Social History Tobacco Use Types Packs/Day [...] any clubs o r organizations such as rastafari groups, unions, fraternal or athletic groups, or [...] [facility] - Occupational Stress Questionnaire Answer Date Recorded [...] living in a intermediate (including now)? No 09/17/2024 CAGE ASSESSMENT Answer [...] drink first t anselmo in the morning (EYE-INSIDE TESTER) to steady your nerves or to [...] Sign Reading Time Taken Comments Blood Pressure 76/45 10/07/2024 12:55 PM EDT Pulse 59 10/07/2024 12:55 PM EDT Temperature - - Respiratory Rate - - Oxygen Saturation - - Inhaled Oxygen Concentration - - Weight 59 kg (130 lb) 10/07/2024 12:55 PM EDT Height 162.6 cm (5' 4 ) 10/07/2024 12:55 PM EDT Body Mass Index 22.31 10/07/2024 12:55 PM EDT documented in this encounter Miscellaneous Notes * Progress Notes - Chris Pepe MD - 10/07/2024 12:[address] Mg, I had the pleasure of seeing your patient, Michelle Felipe in the [facility]ology[facility] today in consultation for her oral complaints. As you are aware, Michelle is a 74 y.o. female with SLE, significant cardiac disease, chronic kidney disease and multiple other medical conditions which she takes numerous medications. She is here today for her recurrent oral ulcers. This hasbeen going on for years and they usually clear and returned but some of the ulcers have persisted. She has use magic mouthwash in the past intermittently with limited success. She now here for further evaluation and recommendations for management. She has chronic dry mouth secondary to her medical disorders, continuous use of oxygen and her medications. She reports that she has never smoked. She has been exposed to tobacco smoke. She has never used smokeless tobacco. Her 14 point review of systems, family and social history are otherwise negative as reported by ourpatient history form. She denies any constitutional symptoms. Current Medications[1] Allergies: Morphine, Morphine and codeine, Pravastatin, Azathioprine, Cephalexin, Codeine, Penicillins, Rosuvastatin, Seasonal ic [cholestatin], Statins, Tetracycline, and Tetracyclines & related PERTINENT SOCIAL HISTORY: She reports current alcohol use of about 4.0 standard drinks of alcohol per week.; She reports no history of drug use. BP (!) 76/45 (BP Location: Left arm, Patient Position: Sitting, BP Cuff Size: Adult) Pulse 59 Ht 1.626 m (5' 4 ) Wt 59 kg (130 lb) BMI 22.31 kg/m?? Physical examination today reveals a frail female in no apparent distress who has wheelchair-bound. Her head is normocephalic and atraumatic. The quality of her voice is raspy and weak. Herhearing is subjectively normal and subjectively decreased bilaterally by exam. Oral exam reveals multiple ulcerations in varying stages of age measuring no more than 2-3 mm in greatest dimension and are not friable, very dry mucous membranes, good palatal elevation and tongue mobility. Her tonsils are surgically absent. Plan: Her recurrent oral aphthous ulcers are most likely related to both medication and her lupus. 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 I have discussed further topical management including the use of ambesol for the most tender lesions and swishing and spitting with Carafate to coat the ulcers to make the more tolerable. We also discussed increased hydration which she is not very good at. Considering her other medical conditions, I have nothing further to offer at this time. The patient has been counseled on tobacco cessation: Not Applicable; time spent in discussion: Not applicable, current non smoker. Digital speech recognition software was used to dictate this note and, despite all efforts to proofread, some dictation errors may occur. If you have any questions, please do not hesitate to contact me. Thank you again for allowing me to participate in her care. Best personal regards, Chris Pepe MD [1] Current Outpatient Medications: acetaminophen (Tylenol) 500 MG tablet, Take 2 tablets by mouth every 6 hours as needed., Disp: , Rfl: aspirin 81 MG EC tablet, Take 1 tablet by mouth every evening., Disp: , Rfl: Blood Glucose Monitoring Suppl (Blood Glucose Monitor System) w/Device kit, Test blood sugars twicea day to calibrate cgm. Dx E10.65, Disp: 1 kit, Rfl: 0 cetirizine (ZyrTEC) 10 MG tablet, Take 1 tablet by mouth every evening., Disp: , Rfl: DULoxetine (Cymbalta) [address] capsule, Take 1 capsule (20 mg) by mouth 1 (one) time each day in the morning. Taking 80mg total, Disp: 90 capsule, Rfl: 3 DULoxetine (Cymbalta) [address] capsule, Take 1 capsule by mouth daily. Do not crush or chew. Take in addition to one 20mg capsule for a total of 80mg daily., Disp: , Rfl: ezetimibe (Zetia) 10 MG tablet, Take 1 tablet by mouth nightly., Disp: , Rfl: ferrous sulfate 324 (65 Fe) MG EC tablet, Take 1 tablet by mouth daily with breakfast. Do not crush, chew, or split., Disp: , Rfl: Oftfdgjohqu-Xqtirbnbf-Cgslxz (Trelegy Ellipta) 200-62.5-25 MCG/ACT aerosol powder , Inhale 1 puff 1(one) time each day in the morning., Disp: 180 each, Rfl: 3 folic acid (Folvite) 1 MG tablet, Taking 1 tablet five days of the week, Disp: 90 tablet, Rfl: 1 furosemide (Lasix) 80 MG tablet, Take 1 tablet by mouth daily., Disp: 30 tablet, Rfl: 0 gabapentin (Neurontin) 300 MG capsule, TAKE 1 CAPSULE BY MOUTH 2 TIMES A DAY, Disp: 60 capsule, Rfl: 2 glucose blood test strip, Use to test blood sugars twice a day to calibrate cgm. Dx 10.65, Disp: 100 each, Rfl: 12 hydroxychloroquine (Plaquenil) 200 MG tablet, Take 1.5 tablets by mouth daily., Disp: 45 tablet, Rfl: 5 insulin glargine (Toujeo SoloStar) 300 UNIT/ML injection pen (1 UNIT DIAL), Inject 14 Units under the skin every morning. (Patient taking differently: Inject 6 Units under the skin 2 times a day.), Disp: 4.5 mL, Rfl: 3 insulin lispro (HumaLOG KWIKPEN) 100 UNIT/ML injection pen, Inject 2-6 units before meals plus 1:60>150. Max tdd 30 units, Disp: 30 mL, Rfl: 2 Lancets misc, Use twice a day to calibrate cgm Dx E10.65, Disp: 100 each, Rfl: 3 latanoprost (Xalatan) 0.005 % ophthalmic solution, Administer 1 drop into both eyes nightly., Disp:, Rfl: levothyroxine (Synthroid, Levoxyl) 125 MCG tablet, Take 1 tablet (125 mcg) by mouth 1 (one) time each day before breakfast., Disp: 90 tablet, Rfl: 3 magic mouthwash (lidocaine, diphenhydramine, Maalox 1:1:1), Swish and spit 15 mL every 4 hours as needed for mucositis. Shake Well., Disp: 2700 mL, Rfl: 11 magnesium oxide (Mag-Ox) 400 mg tablet, Take 1 tablet by mouth daily., Disp: , Rfl: metoprolol succinate XL (Toprol-XL) 25 MG 24 hr tablet, Take 1 tablet by mouth every morning., Disp: , Rfl: oxygen (O2) gas, Inhale 2 L nightly. via nasal canula, Disp: , Rfl: Pitavastatin Calcium (Livalo) 4 MG tablet, Take 1 tablet by mouth daily., Disp: 90 tablet, Rfl: 0 Probiotic Product (acidophilus probiotic blend) capsule, Take 1 capsule by mouth daily., Disp: , Rfl: spironolactone (Aldactone) 25 MG tablet, Take 0.5 tablets by mouth daily. (Patient taking differently: Take 0.5 tablets by mouth daily. Taking 1/4th tablet d/t feeling dizzy when she takes it), Disp:, Rfl: warfarin (Coumadin) 5 MG tablet, Take 2.5 mg on Friday and 5mg the rest of the week and follow up with your warfarin pharmacist., Disp: 30 tablet, Rfl: 0 enoxaparin (Lovenox) 100 MG/ML solution prefilled syringe, Inject 0.9 mL under the skin every evening. (Patient not taking: Reported on 09/27/2024), Disp: 5 mL, Rfl: 1 mycophenolate (CellCept) 500 MG tablet, Take 2 tablets by mouth 2 times a day., Disp: 360 tablet, Rfl: 1 nitroglycerin (Nitrostat) 0.4 MG SL tablet, Place 1 tablet under the tongue every 5 minutes as needed for chest pain., Disp: , Rfl: sucralfate (Carafate) 1 GM/10ML suspension, Take 10 mL by mouth 4 times a day., Disp: 473 mL, Rfl: 11 documented in this encounter Plan of Treatment Upcoming Encounters Date Type Department Care Team (Late st Contact Info) Description 10/25/2024 10:00 AM EDT Office Visit [facility] Nephrology, Bone & Mineral Metabolism [address], [address] [place] [address] Bryon Brnadon MD [address] [place] [address] 10/27/2024 1:40 PM EDT Office Visit [facility] Endocrinology [address] [place] [phone] Anne-Marie Kolb L, APPLIED MATHEMATICIAN [address] [facility] [address] [place] [address] 12/23/2024 4:00 PM EDT Office Visit [facility] Medicine Specialties [address] [place] [address] Lavern Shoemaker MD [address] [place], [place] [id number] 02/02/2025 8:40 AM EST Office Visit [facility] Internal Medicine [address], [address]rd [place] [address] Alisa Kunz, DO [address] [place] [address] documented as of this encounter Visit Diagnoses Diagnosis Recurrent aphthous ulcer- Primary Oral aphthae Systemic lupus erythematosus, unspecified SLE type, unspecified organ involvement status (CMS/HCC) documented in this encounter Additional Health Concerns Assessment Noted Time PHQ-9 Depression Total Score: 0 09/09/19 25 11:19 AM EDT A fall risk assessment has been complete d for the patient 09/27/2024 1:32 PM EDT A Body Mass Index follow-up plan has been documented for the patient 10/07/2024 1:17 PM EDT documented as of this encounter Care Teams Miller Wood Flour Relationship Specialty Start Date End Date Alisa Kunz DO [address] [place] [address] PCP - General Internal Medicine 03/13/21 Kodi Bustos DO [address] [address] Surgeon Cardiothoracic Surgery 11/06/22 Sujit Arriola MD [address] [place] [address] Consulting Physician Pulmonary Disease 11/06/22 Sujit Reyes MD [address] [place] [address] Referring Physician 12/04/22 Patricia Yañez LPN [facility] TCM Nurse 08/25/24 10/17/24 Zee Lazar DO [address] [place], [place] [id number] Resident 09/08/24 documented as of this encounter
--- OUTSIDE RECORDS SUMMARY | 2024-10-12 09:52 | XMS_ITS | Encounter Summary ---
[facility] Address [address] [place] [address] Care Team Providers Care Truck Trailer Mechanic Name Role Phone Alisa Kunz Primary Care Provider +1- [phone] Reason for Referral * Cardiac (Routine) - Closed Specialty Diagnoses / Procedures Referred By Luis Armando t Referred To Contact Diagnoses Paroxysmal atrial fibrillation Procedures Cardioversion External in Cardiology Department Naveen Velasquez MD [facility] [place] [address] Phone: tel: fax: Referral ID Status Reason Start Date Expiration Date Visits Re quested Visits Authorized [id number] Closed 10/12/2024 01/04/2026 1 1 Reason for Visit * Cardiac (Routine) - Closed Specialty Diagnoses / Procedures Referred By Luis Armando mckeon Referred To Contact Diagnoses Paroxysmal atrial fibrillation Procedures Cardioversion External in Cardiology Department Naveen Velasquez MD [facility] [address] [place] [address] Phone: tel: fax: Referral ID Status Reason Start Date Expiration Date Visits Re quested Visits Authorized [id number] Closed 10/12/2024 01/04/2026 1 1 Encounter Details Date Type Department Care Team (Late st Contact Info) Description 10/12/2024 9:52 AM EDT - 10/12/2024 4:46 PM EDT Hospital Encounter [facility] [address] [place] [address] Naveen [facility]asquez MD [address] [facility] [address] [address] [place] [address] Paroxysmal atrial fibrillation Discharge Disposition: Home or [...] 10:26 AM EDT Cece Prieto RN * [place] Suicide Severity Rating Scale (Screener/Recent Self-Report) Question [...] sent through Care Everywhere. * Transesophageal Echocardiogram (British) * Moderate Conscious Sedation Adult Care After (British) * Warfarin Tablets (British) * Atrial Fibrillation Zvfv-hx-Spfj (British) documented in this encounter Medications at Time [...] on file. 10/12/24 DATE OF ADMISSION: 10/12/2024 [facility] Alisa Tanner, DO [address] / [facility] [address] Referring Provider: Naveen Velasquez MD CC: AFIB Problem List: Ischemic heart disease: CABG, Dr. Timur Lopez, July 1999 (SHEEHAN to distal LAD,SVG to first diagonal, SVG to second diagonal, SHAR [place] metal stenting of the ostium of the SVG to second diagonal, Rotational atherectomy/PTCA ofRCA and SVG to second diagonal in-stent. PTCRA/stenting of proximal RCA in-stent restenosis and rotational atherectomy/PTCA of SVG to seconddiagonal. Brachy therapy for in-stent restenosis of proximal dominant RCA, 04/16/2001, LVEF (65%). [facility]: Dr. Thakkar for acute [place], 01/10/2007: Normal LV function and wall motion, Patent SVG to second diagonal, Patent SHEEHAN graft to LAD, 50% ostial stenosis of SVG to first diagonal, JANA Taxus stenting of mid RCA stenosis. Mild reversible anteroischemia - Cardiac SPECT (scan date ?), LVEF (77%). [facility], May 2011, [facility], reportedly revealed no disease (data deficit) in setting of diabetic ketoacidosis associated with acute respiratory failure requiring mechanical ventilation x 5 days. Echocardiogram 04/12/16: LVEF 70%, mild MR, AV sclerosis Myocardial perfusion study 02/17/2017: Wnl, EF 70% Echo, 05/18/21, EF 60%, Mild MS [facility] PTCA RCA ISR: Patent Grafts. [...] SJ PPM - GFT CVA 04/27 [facility], outpt monitor demonstrated Afib 40% carotid plaque [...] Description 10/21/2024 2:15 PM EDT Office Visit [facility] [address] [place] [phone] Shannen Horta, PLASTICS TOOLING ENGINEER [address] [facility] [address] [place] [address] 12/02/2024 3:30 PM EDT Office Visit [facility] [address] [place] [address] [address] Sujit Reyes MD [address] [facility] [address] [place] [address] 01/19/2025 1:45 PM EST Office Visit [facility] [address] [facility] [address] [place] [address] Naveen Velasquez MD [address] [facility] [address] [place] [address] documented as of this encounter Procedures Procedure Name Priority Date/Time Associated Diagnosis Comments CARDIOVERSION EXTERNAL IN CARDIOLOGY DEPARTMENT Routine 10/12/2024 3:27 PM EDT Paroxysmal atrial fibrillation KNEIA W/ CONTRAST, LIMITED DOPPLER AND COLOR Routine [...] Shock 1 0 joules delivered to patient. Naveen Velasquez MD CV CARDIAC SERVICES ORDERABL ES Final Result * (ABNORMAL) Protime-INR (10/12/2024 10:20 AM EDT) Protime 17.8(H) 12.2 - 15.3 Seconds 10/12/2024 11:00 AM EDT [facility] INR 1.37(H) 0.89 - 1.12 10/12/2024 11:00 AM EDT [facility] Blood Line / Unknown 10/12/2024 10 :20 AM EDT 10/12/2024 10:40 AM EDT Naveen Velasquez MD LAB BLOOD ORDERABLES Final R esult [facility]
[address] [place] [address], * (ABNORMAL) CBC (No Diff) (10/12/2024 10:20 AM EDT) WBC 7.80 3.40 - 10.80 10*3/mm3 10/12/2024 10:48 AM EDT [facility] RBC 3.75(L) 3.77 - 5.28 10*6/mm3 10/12/2024 10:48 AM EDT [facility] Hemoglobin 11.2(L) 12.0 - 15.9 g/dL 10/12/2024 10:48 AM EDT [facility] Hematocrit 36.8 34.0 - 46.6 % 10/12/2024 10:48 AM EDT [facility] MCV 98.1(H) 79.0 - 97.0 fL 10/12/2024 10:48 AM EDT [facility] MCH 29.9 26.6 - 33.0 pg 10/12/2024 10:48 AM EDT [facility] MCHC 30.4(L) 31.5 - 35.7 g/dL 10/12/2024 10:48 AM EDT [facility] RDW 16.7(H) 12.3 - 15.4 % 10/12/2024 10:48 AM EDT [facility] RDW-SD 60.3(H) 37.0 - 54.0 fl 10/12/2024 10:48 AM EDT [facility] MPV 9.7 6.0 - 12.0 fL 10/12/2024 10:48 AM EDT [facility] Platelets 289 140 - 450 10*3/mm3 10/12/2024 10:48 AM T [facility] Blood Line / Unknown 10/12/2024 10 :20 AM EDT 10/12/2024 10:40 AM EDT Naveen Velasquez MD LAB BLOOD ORDERABLES Final R esult [facility]
[address] [place] [address], documented in this encounter Visit Diagnoses Diagnosis [...] 1440 (Given - Provid er: Cece Prieto, RN) flumazenil (ROMAZICON) injection 0.5 mg 0.5 [...] (Given - Provid er: Cece Prieto, EVITA) naloxone (NARCAN) injection 0.4 mg 0.4 mg, Intravenous, Once As Needed, Opioid Reversal, Starting on Fri10/12/24 at 1012, For 1 dose 1056 (Due) documented in this encounter Care Teams Truck Trailer Mechanic Relationship Specialty Start Date End Date Alisa Kunz DO [address] [place] [address] PCP - General Internal Medicine 04/26/21 documented as of this encounter
--- OUTSIDE RECORDS SUMMARY | 2024-10-14 11:00 | XMS_ITS | Encounter Summary ---
Author Organization [facility] Address [address] [place] [address] Care Team Providers Care Record Clerk Name Role Phone ZeAlisa willett Torri DO Primary Care Provider [phone] Kodi Bustos DO Unavailable [phone] Sujit Arriola MD Unavailable [phone] Sujit Reyes MD Unavailable [phone] Patricia Yañez LPN Unavailable Unavailab Zee Lr DO Unavailable [phone] Reason for Referral * Consultation (Routine) - Authorized Specialty Diagnoses / Procedures Referred By Contdarwin t Referred To Contact Diagnoses Recurrent pleural effusion on left Chronic hypoxic respiratory failure Obstructive lung disease ([facility]/HCC) Systemic lupus erythematosus (SLE) in adult ([facility]) Cristian Zimmer MD [address] [facility] [address] [place] [address] Phone: tel: fax: Referral ID Status Reason Start Date Expiration Date V isits Requested Visits Authorized [id number] Authorized 10/14/2024 04/15/2026 1 1 Reason for Visit * Reason Comments Follow-up * Consultation (Routine) - Closed Specialty Diagnoses / Procedures Referred By Contac t Referred To Contact Diagnoses Recurrent pleural effusion on left Chronic hypoxic respiratory failure Sen, Parijat, MD [address] [place] [address] Phone: tel: fax: Referral ID Status Reason Start Date Expiration Date Visits Re quested Visits Authorized [id number] Closed 07/08/2024 01/07/2026 1 1 Encounter Details Date Type Department Care Team (Latest Contact Info) Description 10/14/2024 11:00 AM EDT [facility] [address] [place] [address] Cristian Zimmer MD [address] [place] [address] Recurrent pleural effusion on left (Primary Dx); Chronic hypoxic respiratory failure; Obstructive lung disease ([facility]); Systemic lupus erythematosus (SLE) in adult ([facility]) Social History Tobacco Use Types [...] often do you attend chur ch or pentecostal services? 1 to 4 times per year 08/30/2022 Do you belong to any clubs o r organizations such as presybeterian groups, unions, fraternal or athletic groups, or [...] Patient Health Questionnaire-2 Score 0 09/08/2024 [facility] [place] of Occupat ional Health - Occupational Stress [...] time in the past [address] [facility], were you homeless or living in [...] time in the past [address] [facility], were you homeless or living in [...] drink first t anselmo in the morning (EYE-SWEEPER BRUSH MAKER MACHINE) to steady your nerves or to get [...] her whether she had followed up with [facility] regarding the pleural peritoneal shunt. Shetold me [...] Shoemaker had set up this appointment at [facility] and would probablyhave to do it again [...] 01/09/2023 ??? Influenza, seasonal, injectable 12/08/2018 ??? [employer] COVID-19 Vaccine (Purple Cap) 12+ 03/30/2020, 03/30/2020, [...] Systemic lupus erythematosus (SLE) in adult (CMS/HCC) I spent 45 minutes performing all or some of the following: Reviewing the history , performing an examination and evaluation, entering clinical information into the EHR, interpreting the results, counseling family/patient/caregiver, reviewing x-rays and laboratories, ordering the medications, testsand procedures, referring and communicating with consulting health pet care technician and care coordination. [1] Past Medical History: Diagnosis Date ??? 2019-nCoV acute respiratory disease 05/07/2022 ??? Alcohol use ??? Allergic 1973 ??? Anemia ??? Anxiety ??? Arthritis ??? Asthma ??? Cellulitis 02/13/2024 ??? Cellulitis of right leg 02/12/2024 ??? CHF (congestive heart failure) ([facility]/HCC) ??? Chronic respiratory failure 2019 ??? Clotting disorder (CMS/HCC) ??? Congenital malformation ??? COPD (chronic obstructive pulmonary disease) ([facility]/HCC) 2018 ??? Coronary artery disease ??? CTS [...] or viral conjunctivitis vs. Scleritis. - Needs [facility] eye exam. - Was ableto get patient in with [facility] ophthalmology right after our clinic appointment [...] CARDIAC PACEMAKER PLACEMENT N/A Pacemaker Placement from [employer] ??? CARPAL TUNNEL RELEASE N/A Neuroplasty Decompression Median Nerve At Carpal Tunnel from [employer] ??? CERVICAL BIOPSY W/ LOOP ELECTRODE EXCISION 2010 ??? SECTION, CLASSIC 1976, 1979 ??? SECTION, LOW TRANSVERSE N/A Section from [employer] ??? COLONOSCOPY N/A Complete Colonoscopy from [employer] ??? CORONARY ARTERY BYPASS GRAFT N/A CABG from [employer] ??? EYE SURGERY N/A Eye Surgery from [employer] ??? FRACTURE SURGERY ??? SPINE SURGERY ??? THORACENTESIS ??? TOE SURGERY Left 02/07/2024 hematoma removal of upper skin on L big toe ??? TONSILLECTOMY N/A Tonsillectomy from [employer] [3] Family History Problem Relation Name Age of Onset ??? Conversions - Other Mother cindi celsaer alfredito kelin Goiter (Diffuse Nontoxic) ??? Heart disease Mother cindi stamper alfredito kelin ??? Hypertension Mother cindi stamper alfredito kelin ??? Stroke Mother cindi stamper alfredito kelin ??? COPD Mother cindi stamper alfredito kelin ??? Alpha-1 antitrypsin deficiency Mother cindi stamper alfredito kelin ??? Arthritis Father Doron Antunez ??? Hypercholesterolemia Father Doron Antunez ??? Obesity Father Doron Henriquezer ??? COPD Father Doron Arriaza Alfredito ??? Alcohol abuse Father Doron Henriquezer ??? Diabetes Sibling ??? Cancer Other Doron Antunez ??? Conversions - Other Other Goiter (Diffuse Nontoxic) ??? Heart disease Other Cindi Marry Maria [4] Current Outpatient Medications Medication Sig Dispense [...] Do not crush, chew, or split. ??? Hyfscdavhzn-Nvesyfpqs-Yqsyea (Trelegy Ellipta) 200-62.5-25 MCG/ACT aerosol powder Inhale [...] Description 10/25/2024 10:00 AM EDT Office Visit [facility] Nephrology, Bone & Mineral Metabolism [address], [address] [place] [address] Bryon Brandon MD [address] [place] [address] 10/27/2024 1:40 PM EDT Office Visit [facility] Endocrinology [address] [place] [address] Anne-Marie Kolb L, BOILERMAKER APPRENTICE [address] [facility] [address] [place] [address] 12/23/2024 4:00 PM EDT [facility] [address] [place] [address] Lavern Shoemaker MD [address] [place], [place] [phone] 02/02/2025 8:40 AM EST Office Visit [facility] Internal Medicine [address] 3rd [place] [address] Alisa Kunz DO [address] [place] [address] Scheduled Referrals Name Type Priority Associated Diagnoses [...] Chronic hypoxic respiratory failure Obstructive lung disease ([facility]/HCC) Chronic airway obstruction, not elsewhere classified Systemic lupus erythematosus (SLE) in adult ([facility]) Recurrent pleural effusion on left documented in this encounter Additional Health Concerns Assessment Noted Time PHQ-9 Depression Total Score: 0 09/09/19 25 11:19 AM EDT A fall risk assessment has been complete d for the patient 10/14/2024 11:14 AM EDT A Body Mass Index follow-up plan has been documented for the patient 10/14/2024 2:36 PM EDT documented as of this encounter Care Teams Record Clerk Relationship Specialty Start Date End Date Alisa Kunz DO [address] [place] [phone] PCP - General Internal Medicine 03/13/21 Kodi Bustos, DO [address] [address] Surgeon Cardiothoracic Surgery 11/06/22 Sujit Arriola MD [address] [facility] [address] [place] [address] Consulting Physician Pulmonary Disease 11/06/22 Sujit Reyes MD [address] [facility] [address] [place] [address] Referring Physician 12/04/22 Patricia Yañez LPN [facility] TCM Nurse 08/25/24 10/17/24 Zee Lazar DO [address] [place], [place] [id number] Resident 09/08/24 documented as of this encounter
--- OUTSIDE RECORDS SUMMARY | 2024-10-14 12:09 | XMS_ITS | Encounter Summary ---
Author Organization [facility] Address [address] [place] [address] Care Team Providers Care Toxics Program Officer Name Role Phone Alisa Kunz DO Primary Care Provider [phone] Kodi Bustos DO Unavailable [phone] Sujit Arriola MD Unavailable [phone] Sujit Reyes MD Unavailable [phone] Patricia Yañez LPN Unavailable Unavailab Zee Lr DO Unavailable [phone] Encounter Details Date Type Department Care Team (Latest Contact Info) Description 10/14/2024 12:09 PM EDT - 10/14/2024 11:59 PM EDT Hospital Encounter [place] [facility] [address], [address] [place] [address] Recurrent pleural effusion on left Discharge Disposition: [...] often do you attend chur ch or advent services? 1 to 4 times per year 08/30/2022 Do you belong to any clubs o r organizations such as caodaism groups, unions, fraternal or athletic groups, or [...] drink first t anselmo in the morning (EYE-PAMPHLET DISTRIBUTOR) to steady your nerves or to get rid of a hangover? 0 08/14/2024 CAGE Questionnaire Score 0 025 Utilities Answer Date Recorded In the past 12 months has th e [employer], gas, oil, or water company threatened to [...] week 90 tablet 1 07/16/2024 furosemide (Lasix) 80 MG tablet Take 1 tablet by mouth daily. 30 tablet 09/16/2024 gabapentin (Neurontin) 300 MG capsule TAKE 1 CAPSULE BY MOUTH 2 TIMES A DAY 60 capsule 2 10/06/2024 glucose blood test strip Use to test blood sugars twice a day to calibrate cgm. Dx 10.65 100 each 12 09/16/2024 hydroxychloroquine (Plaquenil) 200 MG tabletIndications:S ystemic lupus erythematosus (SLE) in adult ([facility]) Take 1.5 tablets by mouth daily. 45 tablet 5 09/15/2024 6 insulin glargine (Toujeo SoloStar) 300 UNIT/ML injection pen (1 UNIT DIAL)Indications:Ty pe 1 diabetes mellitus with hyperglycemia (CMS/HCC) Inject 14 Units under the skin every morning. 4.5 mL 3 08/04/2024 insulin lispro (HumaLOG KWIKPEN) 100 UNIT/ML injection penIndications:Type 1 diabetes mellitus with hyperglycemia ([facility]) Inject 2-6 units before meals [...] tabletIndications:S ystemic lupus erythematosus (SLE) in adult ([facility]) Take 2 tablets by mouth 2 times a day. 360 tablet 1 08/27/2024 oxygen (O2) gas Inhale 2 L nightly. via nasal canula Pitavastatin Calcium (Livalo) 4 MG tabletIndications:T ype 1 diabetes mellitus with other specified complication ([facility]),Dyslipide romana Take 1 tablet by mouth daily. [...] with your warfarin pharmacist. 30 tablet 07/15/2024 documented as of this encounter Plan of Treatment Upcoming Encounters Date Type Department Care Team ([facility] st Contact Info) Description 10/25/2024 10:00 AM EDT Office Visit [facility] Nephrology, Bone & Mineral Metabolism [address] [facility], [address] [place] [address] Bryon Brandon MD [address] [place] [address] 10/27/2024 1:40 PM EDT Office Visit [facility] Endocrinology [address] [place] [address] Anne-Marie Kolb L, SCAFFOLD SETTER [address] [facility] [address] [place] [address] 12/23/2024 4:00 PM EDT [facility] [address], [address] [place] [address] Lavern Shoemaker MD [address] [place], [place] [phone] 02/02/2025 8:40 AM EST Office Visit [facility] Internal Medicine [address], [address]rd [place] [address] Alisa Kunz L, DO [address] [place] [address] documented as of this encounter [...] documented as of this encounter Care Teams Toxics Program Officer Relationship Specialty Start Date End Date Alisa Kunz DO [address] [place] [address] PCP - General Internal Medicine 03/13/21 Kodi Bustos DO [address] [phone] Surgeon Cardiothoracic Surgery 11/06/22 Sujit Arriola MD [address] [place] [address] Consulting Physician Pulmonary Disease 11/06/22 Sujit Reyes MD [address] [place] [address] Referring Physician 12/04/22 Patricia Yañez LPN [facility] TCM Nurse 08/25/24 10/17/24 Zee Lazar DO [address] [place] [address] Resident 09/08/24 documented as of this encounter
--- OUTSIDE RECORDS SUMMARY | 2024-10-18 14:52 | XMS_ITS | Encounter Summary ---
Author Organization [facility] Address [address] [place] [address] Care Team Providers Care Statistical Developer Name Role Phone Alisa Kunz DO Primary Care Provider [phone] Kodi Bustos DO Unavailable [phone] Sujit Arriola MD Unavailable [phone] Sujit Reyes MD Unavailable [phone] Patricia Yañez LPN Unavailable Unavailab Zee Lr DO Unavailable [phone] Encounter Details Date Type Department Care Team [...] How often do you attend chur or jehovah's witness services? 1 to 4 times per year 08/30/2022 Do you belong to any clubs o r organizations such as congregational groups, unions, fraternal or athletic groups, or [...] Patient Health Questionnaire-2 Score 0 09/08/2024 [facility] - Occupational Stress Questionnaire Answer Date [...] in the past 12 m [facility], were you homeless or living [...] in the past 12 m [facility], were you homeless or living [...] drink first t anselmo in the morning (EYE-REGULATOR MECHANIC) to steady your nerves or to get rid of a hangover? 0 08/14/2024 CAGE Questionnaire Score 0 025 Utilities Answer Date Recorded In the past 12 months has th e [employer] gas, oil, or water [email or web address] threatened to shut off services in your [...] Ramirez RN documented as of this encounter Plan of Treatment Upcoming Encounters Date Type Department Care Team (Late st Contact Info) Description 10/25/2024 10:00 AM EDT Office Visit [facility] Nephrology, Bone & Mineral Metabolism [address] [facility], [address] [place] [address] Bryon Brandon MD [address] [place] [address] 10/27/2024 1:40 PM EDT Office Visit [facility] Endocrinology [address] [place] [address] Anne-Marie Kolb, [employer] [address] [facility] [address] [place] [address] 12/23/2024 4:00 PM EDT [facility] [address], [address] [place] [address] Lavern Shoemaker MD 800 [place] [address] 02/02/2025 8:40 AM EST Office Visit [facility] Internal Medicine [address], 3rd [place] [address] Alisa Kunz DO [address] [facility] [address] [place] [address] documented as of this encounter [...] documented as of this encounter Care Teams Statistical Developer Relationship Specialty Start Date End Date Alisa Kunz DO [address] [facility] [address] [place] [address] PCP - General Internal Medicine 03/13/21 Kodi Bustos DO [address] [phone] Surgeon Cardiothoracic Surgery 11/06/22 Sujit Arriola MD [address] [place] [address] Consulting Physician Pulmonary Disease 11/06/22 Sujit Reyes MD [address] [place] [address] Referring Physician 12/04/22 Patricia Yañez LPN [facility] TCM Nurse 08/25/24 10/17/24 Zee Lazar DO [address] [place] [address] Resident 09/08/24 documented as of this encounter
--- OUTSIDE RECORDS SUMMARY | 2024-10-18 14:52 | XMS_ITS | Encounter Summary ---
Author Organization [facility] Address [address] [place] [address] Care Team Providers Care Proposal Director Name Role Phone Alisa Kunz DO Primary Care Provider [phone] Kodi Bustos DO Unavailable [phone] Sujit Arriola MD Unavailable [phone] Sujit Reyes MD Unavailable [phone] Patricia Yañez LPN Unavailable Unavailab Zee Lr DO Unavailable [phone] Reason for Visit * Reason Onset Date Comments Med Refill 09/16/2024 Encounter Details Date Type Department Care Team (Late st Contact Info) Description 09/16/2024 Telephone [facility] Endocrinology [address] [place] [address] Anne-Marie Kolb L, NIGHT TIME BABYSITTER 219 [facility] [address] [place] [address] Med Refill Social History Tobacco [...] any clubs o r organizations such as yazidism groups, unions, fraternal or athletic groups, or [...] drink first t anselmo in the morning (EYE-MATERIAL PLANNING ANALYST) to steady your nerves or to get rid of a hangover? 0 08/14/2024 CAGE Questionnaire Score 0 025 Utilities Answer Date Recorded In the past 12 months has e [employer], gas, oil, or water [employer] threatened to shut off services in [...] Description 10/25/2024 10:00 AM EDT Office Visit [facility] Nephrology, Bone & Mineral Metabolism [address], [address] [place] [address] Bryon Brandon MD 800 [place] [address] 10/27/2024 1:40 PM EDT Office Visit [facility] Endocrinology [address] [place] [address] Anne-Marie Kolb L, NIGHT TIME BABYSITTER 2[address] [facility] [address] [place] [address] 12/23/2024 4:00 PM EDT Office Visit [facility] Medicine Specialties [address], 2nd [place] [address] Lavern Shoemaker MD 800 [place] [address] 02/02/2025 8:40 AM EST [facility] [address], 3rd [place] [address] Alisa Kunz DO [address] [address] documented as of this [...] documented as of this encounter Care Teams Proposal Director Relationship Specialty Start Date End Date Alisa Kunz DO [address] [facility] [address] [place] [address] PCP - General Internal Medicine 03/13/21 Kodi Bustos, DO [address] [address] Surgeon Cardiothoracic Surgery 11/06/22 Sujit Arriola MD [address] [place] [address] Consulting Physician Pulmonary Disease 11/06/22 Sujit Reyes MD [address] [place] [address] Referring Physician 12/04/22 Patricia Yañez LPN [facility] TCM Nurse 08/25/24 10/17/24 Zee Lazar DO [address] [place] [address] Resident 09/08/24 documented as of this encounter
--- OUTSIDE RECORDS SUMMARY | 2024-10-18 14:52 | XMS_ITS | Encounter Summary ---
Author Organization [facility] Address [address] [place] [address] Care Team Providers Care Dough Brake Machine Operator Name Role Phone Alisa Kunz Torri DO Primary Care Provider Kodi Bustos DO Unavailable [phone] Sujit Arriola MD Unavailable [phone] Sujti Reyes MD Unavailable [phone] Patricia Yañez LPN Unavailable Unavailab Zee Lr DO Unavailable [phone] Encounter Details Date Type Department Care Team (Late st Contact Info) Description 09/28/2024 Results [facility]-Up [facility] [address] [place] [address] Ashley, June R, MARINE INSURANCE CLAIM EXAMINER [address] [place] [address] Social History Tobacco Use Types [...] often do you attend chur ch or adventist services? 1 to 4 times per year [...] Recorded Patient Health Questionnaire-2 Score 0 09/08/2024 [facility] of Occupat ional Health [...] drink first t anselmo in the morning (EYE-ROOM DESIGNER) to steady your nerves or to get rid of a hangover? 0 08/14/2024 CAGE Questionnaire Score 0 025 Utilities Answer Date Recorded In the past 12 months has th [employer], gas, oil, or water [employer] threatened to shut off services in your [...] updated her on her lab results and YAMILET's recommendations. Pt verbalized understanding, denies questions, concerns [...] Description 10/25/2024 10:00 AM EDT Office Visit [facility] Nephrology, Bone & Mineral Metabolism [address] [facility] [address], [address] [place] [address] Bryon Brandon MD [address] [place] [address] 10/27/2024 1:40 PM EDT Office Visit [facility] Endocrinology [address] [place] [address] Anne-Marie Kolb, MARINE INSURANCE CLAIM EXAMINER 2[address] [facility] [address] [place] [address] 12/23/2024 4:00 PM EDT Office Visit [facility] Medicine Specialties [address], 2nd [place] [address] Lavern Shoemaker MD [address] [place], [place] [address] 02/02/2025 8:40 AM EST Office Visit [facility] Internal Medicine [address], 3rd [place] [address] Alisa Kunz DO [address] [place] [address] documented as of this encounter Visit Diagnoses [...] documented as of this encounter Care Teams Dough Brake Machine Operator Relationship Specialty Start Date End Date Alisa Kunz DO [address] [place] [address] PCP - General Internal Medicine 03/13/21 Kodi Bustos DO [address] [address] Surgeon Cardiothoracic Surgery 11/06/22 Sujit Arriola MD [address] [place] [address] Consulting Physician Pulmonary Disease 11/06/22 Sujit Reyes MD [address] [place] [address] Referring Physician 12/04/22 Patricia Yañez LPN [facility] TCM Nurse 08/25/24 10/17/24 Zee Lazar DO 800 [place], [place] [address] Resident 09/08/24 documented as of this encounter
--- OUTSIDE RECORDS SUMMARY | 2024-10-18 14:52 | XMS_ITS | Encounter Summary ---
Author Organization [facility] Address [address] [place] [address] Care Team Providers Care Senior Health Consultant Name Role Phone Alisa Kunz DO Primary Care Provider [phone] Kodi Bustos DO Unavailable [phone] Sujit Arriola MD Unavailable [phone] Sujit Reyes MD Unavailable [phone] Patricia Yañez LPN Unavailable Unavailab Zee Lr DO Unavailable [phone] Encounter Details Date Type Department Care Team [...] How often do you attend chur or shinto services? 1 to 4 times [...] Recorded Patient Health Questionnaire-2 Score 0 09/08/2024 [facility] of Occupat ional [facility] - Occupational Stress Questionnaire Answer Date [...] any time in the past 12 m [facility], were you homeless or living [...] any time in the past 12 m [facility], were you homeless or living [...] drink first t anselmo in the morning (EYE-WHOLESALER) to steady your nerves or to get [...] 10/25/2024 10:00 AM EDT Office Visit [facility] Nephrology, Bone & Mineral Metabolism [address] [facility] [address], [address] [place] [address] Bryon Brandon MD 800 [place] [address] 10/27/2024 1:40 PM EDT Office Visit [facility] Endocrinology [address] [place] [address] Anne-Marie Kolb, MIRROR FRAMER [address] [facility] [address] [place] [address] 12/23/2024 4:00 PM EDT Office Visit [facility] Medicine Specialties [address], 2nd [place] [address] Lavern Shoemaker MD [address] [place] [address] 02/02/2025 8:40 AM EST Office Visit [facility] Internal Medicine [address], 3rd [place] [address] Alisa Kunz DO [address] [facility] [address] [place] [address] documented as of this encounter [...] as of this encounter Care Teams Senior Health Consultant Relationship Specialty Start Date End Date Alisa Kunz DO [address] [address] PCP - General Internal Medicine 03/13/21 Kodi Bustos DO [address] [place] [address] Surgeon Cardiothoracic Surgery 11/06/22 Sujit Arriola MD [address] [place] [address] Consulting Physician Pulmonary Disease 11/06/22 Sujit Reyes MD [address] [place] [address] Referring Physician 12/04/22 Patricia Yañez, CALL SPECIALIST [facility] TCM Nurse 08/25/24 10/17/24 Zee Lazar DO [address] [place] [address] Resident 09/08/24 documented as of this encounter
--- OUTSIDE RECORDS SUMMARY | 2024-10-18 14:52 | XMS_ITS | Encounter Summary ---
Author Organization [facility] Address [address] [place] [address] Care Team Providers Care Portable Machine Sander Name Role Phone Alisa Kunz DO Primary Care Provider Kodi Bustos DO Unavailable [phone] Sujit Arriola MD Unavailable [phone] Sujit Reyes MD Unavailable [phone] Patricia Yañez LPN Unavailable Unavailab Zee Lr DO Unavailable [phone] Encounter Details Date Type Department Care Team (Late st Contact Info) Description 09/16/2024 Telephone [facility] Internal Medicine [address], 3rd [place] [address] Alisa Kunz DO [address] [place] [address] Social History Tobacco Use Types [...] drink first t anselmo in the morning (EYE-PET CAREGIVER) to steady your nerves or to get rid of a hangover? 0 08/14/2024 CAGE Questionnaire Score 0 025 Utilities Answer Date Recorded In the past 12 months has th [employer], gas, oil, or water [employer] threatened to shut off services in your [...] Mineral Metabolism [address] [facility], [address] [place] [address] Bryon Brandon MD 800 [place] [address] 10/27/2024 1:40 PM EDT Office Visit [facility] Endocrinology [address] [place] [address] Anne-Marie Kolb, EDUCATIONAL PSYCHOLOGY PROFESSOR [address] [place] [address] 12/23/2024 4:00 PM EDT Office Visit [facility] Medicine Specialties [address], [address]nd [place] [address] Lavern Shoemaker MD [address] [place] [address] 02/02/2025 8:40 AM EST Office Visit [facility] Internal Medicine [address], 3rd [place] [address] Alisa Kunz DO [address] [place] [address] documented as of this encounter [...] documented as of this encounter Care Teams Portable Machine Sander Relationship Specialty Start Date End Date Alsia Kunz DO [address] [place] [address] PCP - General Internal Medicine 03/13/21 Kodi Bustos DO [address] [address] Surgeon Cardiothoracic Surgery 11/06/22 Sujit Arriola MD [address] [place] [address] Consulting Physician Pulmonary Disease 11/06/22 Sujit Reyes MD [address] [place] [address] Referring Physician 12/04/22 Patricia Yañez LPN [facility] TCM Nurse 08/25/24 10/17/24 Zee Lazar DO [address] [place] [address] Resident 09/08/24 documented as of this encounter
--- OUTSIDE RECORDS SUMMARY | 2024-10-18 14:52 | XMS_ITS | Encounter Summary ---
Author Organization [facility] Address [address] [place] [address] Care Team Providers Care Cocoa Bean Cleaner Name Role Phone Alisa Kunz DO Primary Care Provider [phone] Kodi Bustos DO Unavailable [phone] Sujit Arriola MD Unavailable [phone] Sujit Reyes MD Unavailable [phone] Patricia Yañez LPN Unavailable Unavailab Zee Lr DO Unavailable [phone] Encounter Details Date Type Department Care Team (Late st Contact Info) Description 09/16/2024 Telephone [facility] Medicine Specialties [address], 2nd [place] [address] [place] [address] Social History Tobacco Use Types Packs/Day Years [...] week 08/30/2022 How often do you attend caro center or sikh services? 1 to 4 times [...] Recorded Patient Health Questionnaire-2 Score 0 09/08/2024 [facility] of Occupat ional Health - Occupational Stress [...] first t anselmo in the morning (EYE-SUPERVISOR FILM PROCESSING) to steady your nerves or to get rid of a hangover? 0 08/14/2024 CAGE Questionnaire Score 0 025 Utilities Answer Date Recorded In the past 12 months has th e [employer], gas, oil, or water company threatened to [...] she calls back, please send her to [facility]. * Telephone Encounter - Shabana Hernández RN [...] there was previous discussion about going to [place], she's wondering if that would be the next step or if she would need to see a brand ambassador promotional model with us first She would like a call back from the nursing team as quickly as possible CB: [phone] documented in this encounter Plan of Treatment Upcoming Encounters Date Type Department Care Team (Late st Contact Info) Description 10/25/2024 10:00 AM EDT Office Visit [facility] Nephrology, Bone & Mineral Metabolism [address] [facility], [address] [place] [address] Bryon Brandon MD 800 [place] [address] 10/27/2024 1:40 PM EDT Office Visit [facility] Endocrinology [address] [place] [address] Anne-Marie Kolb L, FLOOR SPACE ALLOCATOR 2[address] [facility] 125 [place] [address] 12/23/2024 4:00 PM EDT Office Visit [facility] Medicine Specialties [address], 2nd [place] [address] Lavern Shoemaker MD 800 [place], [place] [address] 02/02/2025 8:40 AM EST Office Visit [facility] Internal Medicine [address], 3rd [place] [address] Alisa Kunz, [address] [place] [address] documented as of this encounter [...] documented as of this encounter Care Teams Cocoa Bean Cleaner Relationship Specialty Start Date End Date Alisa Kunz DO [address] [place] [address] PCP - General Internal Medicine 03/13/21 Kodi Bustos DO [address] [phone] Surgeon Cardiothoracic Surgery 11/06/22 Sujit Arriola MD [address] [place] [address] Consulting Physician Pulmonary Disease 11/06/22 Sujit Reyes MD [address] [place] [address] Referring Physician 12/04/22 Patricia Yañez LPN [facility] TCM Nurse 08/25/24 10/17/24 Zee Lazar DO 800 [place], [place] [address] Resident 09/08/24 documented as of this encounter
--- OUTSIDE RECORDS SUMMARY | 2024-10-18 14:52 | XMS_ITS | Encounter Summary ---
Author Organization [facility] Address [address] [place] [address] Care Team Providers Care [employer] Dental Lab Technician Name Role Phone Ailsa Kunz DO Primary Care Provider Kodi Bustos DO Unavailable [phone] Sujit Arriola MD Unavailable [phone] Sujit Reyes MD Unavailable [phone] Patricia Yañez LPN Unavailable Unavailab Zee Lr DO Unavailable [phone] Reason for Visit * Reason Onset Date Comments HCN Clinical Concern/Question 09/16/2024 Lo w heartrate Encounter Details Date Type Department Care Team (Late st Contact Info) Description 09/16/2024 Telephone [facility] Internal Medicine [address], 3rd [place] [address] Alisa Kunz DO [address] [place] [address] HCN Clinical Concern/Question (Low heartrate) [...] Recorded Patient Health Questionnaire-2 Score 0 09/08/2024 [facility] of Occupat ional [facility] - Occupational Stress Questionnaire Answer Date [...] drink first t anselmo in the morning (EYE-GLASS CUTTING MACHINE FEEDER) to steady your nerves or to get rid of a hangover? 0 08/14/2024 CAGE Questionnaire Score 0 025 Utilities Answer Date Recorded In the past 12 months has th [employer], gas, oil, or water [employer] threatened to shut off services in your [...] and optimal time of day to reach caller:[phone] Note: Please do not reply to this [...] Description 10/25/2024 10:00 AM EDT Office Visit [facility] Nephrology, Bone & Mineral Metabolism [address] [facility], [address] [place] [address] Bryon Brandon MD 800 [place] [address] 10/27/2024 1:40 PM EDT Office Visit [facility] Endocrinology [address] [place] [address] Anne-Marie Kolb, GUM MIXER [address] [facility] [address] [place] [address] 12/23/2024 4:00 PM EDT [facility] Medicine Specialties [address], 2nd [place] [address] Lavern Shoemaker MD 800 [place] [address] 02/02/2025 8:40 AM EST Office Visit [facility] Internal Medicine [address], 3rd [place] [address] Alisa Kunz DO [address] [place] [address] documented as of this encounter [...] documented as of this encounter Care Teams [place] Dental Lab Technician Relationship Specialty Start Date End Date Alisa Kunz DO [address] [facility] [address] [place] [address] PCP - General Internal Medicine 03/13/21 Kodi Bustos DO [address] [address] Surgeon Cardiothoracic Surgery 11/06/22 Sujit Arriola MD [address] [place] [address] Consulting Physician Pulmonary Disease 11/06/22 Sujit Reyes MD [address] [place] [address] Referring Physician 12/04/22 Patricia Yañez LPN [facility] TCM Nurse 08/25/24 10/17/24 Zee Lazar DO 800 [place] [address] Resident 09/08/24 documented as of this encounter
--- OUTSIDE RECORDS SUMMARY | 2024-10-18 14:52 | XMS_ITS | Encounter Summary ---
Author Organization [facility] Address [address] [place] [address] Care Team Providers Care Curtains And Draperies Salesperson Name Role Phone Alisa Kunz DO Primary Care Provider [phone] Kodi Bustos DO Unavailable [phone] Sujit Arriola MD Unavailable [phone] Sujit Reyes MD Unavailable [phone] Patricia Yañez LPN Unavailable Unavailab Zee Lr DO Unavailable [phone] Reason for Visit * Reason Comments TCM Call Encounter Details Date Type Department Care Team (Late st Contact Info) Description 09/17/2024 Patient Outreach [facility] [address] [facility], [address] [place] [address] Patricia Yañez LPN [facility] TCM Call Social History [...] Patient Health Questionnaire-2 Score 0 09/08/2024 [facility] of Occupat ional Health - Occupational [...] time in the past 12 m [facility], were you homeless or living in [...] time in the past 12 m [facility], were you homeless or living in [...] drink first t anselmo in the morning (EYE-STUDENT ASSISTANCE COUNSELOR) to steady your nerves or to get [...] Date: 09/09/2024 Discharge Date: 09/15/2024 Hospital [facility]: [facility] Discharge Diagnosis: Acute on chronic congestive heart [...] [facility]. Patient denies N/V/D, fever, SOA, chest pain, [...] day [facility] appointment: 09/27/2024 @ 1:20pm with Dinah Ramirez APRN Items to address at [facility]: -B/P readings documented in this encounter Plan of Treatment Upcoming Encounters Date Type Department Care Team (Late st Contact Info) Description 10/25/2024 10:00 AM EDT Office Visit [facility] Nephrology, Bone & Mineral Metabolism [address] [facility], [address] [place] [address] Bryon Brandon MD 800 [place] [address] 10/27/2024 1:40 PM EDT Office Visit [facility] Endocrinology [address] [place] [address] Anne-Marie Kolb APRN [address] [place] [address] 12/23/2024 4:00 PM EDT Office Visit [facility] Medicine Specialties [address], [address]nd [place] [address] Lavern Shoemaker MD 800 [place] [address] 02/02/2025 8:40 AM EST Office Visit [facility] Internal Medicine [address], 3rd [place] [address] Alisa Kunz DO [address] [place] [address] documented as of this encounter [...] documented as of this encounter Care Teams Curtains And Draperies Salesperson Relationship Specialty Start Date End Date Alisa Kunz DO [address] [place] [address] PCP - General Internal Medicine 03/13/21 Kodi Bustos DO [address] [address] Surgeon Cardiothoracic Surgery 11/06/22 Sujit Arriola MD [address] [place] [address] Consulting Physician Pulmonary Disease 11/06/22 Sujit Reyes MD [address] [facility] [address] [place] [address] Referring Physician 12/04/22 Patricia Yañez LPN [facility] TCM Nurse 08/25/24 10/17/24 Zee Lazar DO [address] [place], [place] [address] Resident 09/08/24 documented as of this encounter
--- OUTSIDE RECORDS SUMMARY | 2024-10-18 14:53 | XMS_ITS | Encounter Summary ---
Author Organization [facility] Address [address] [place] [address] Care Team Providers Care Global Manager Name Role Phone Alisa Kunz DO Primary Care Provider Kodi Bustos DO Unavailable [phone] Sujit Arriola MD Unavailable [phone] Sujit Reyes MD Unavailable [phone] Patricia Yañez LPN Unavailable Unavailab Zee Lr DO Unavailable [phone] Reason for Visit * Reason Onset Date Comments HCN - Patient Message 09/23/2024 Encounter Details Date Type Department Care Team (Late st Contact Info) Description 09/23/2024 Telephone [facility] Internal Medicine [address], 3rd [place] [address] Alisa Kunz DO [address] [place] [address] HCN - Patient Message Social [...] often do you attend chur ch or amish services? 1 to 4 times per year [...] Recorded Patient Health Questionnaire-2 Score 0 09/08/2024 [facility] of Occupat ional Health - [...] any time in the past 12 m [facility], were you homeless or living in a [...] any time in the past 12 m [facility], were you homeless or living in a senior care (including now)? No 09/17/2024 CAGE ASSESSMENT Answer [...] drink first t anselmo in the morning (EYE-VEHICLE TECHNICIAN) to steady your nerves or to get rid of a hangover? 0 08/14/2024 CAGE Questionnaire Score 0 025 Utilities Answer Date Recorded In the past 12 months has th [employer], gas, oil, or water [employer] threatened to shut off services in your [...] optimal time of day to reach caller: [phone] Note: Please do not reply to this [...] Description 10/25/2024 10:00 AM EDT Office Visit [facility] Nephrology, Bone & Mineral Metabolism [address] [facility], [address] [place] [address] Bryon Brandon MD 800 [place] [address] 10/27/2024 1:40 PM EDT Office Visit [facility] Endocrinology [address] [place] [address] Anne-Marie Kolb L, ROUGH RICE GRADER [address] [facility] [address] [place] [address] 12/23/2024 4:00 PM EDT Office Visit [facility] Medicine Specialties [address], 2nd [place] [address] Lavern Shoemaker MD 800 [place], [place] [id number] 02/02/2025 8:40 AM EST Office Visit [facility] Internal Medicine [address], 3rd [place] [address] Alisa Kunz DO [address] [place] [address] documented as of this encounter Visit Diagnoses Not on filedocumented in this encounter Additional Health Concerns Assessment Noted Time PHQ-9 Depression Total Score: 0 07/02/20 25 11:19 AM EDT A fall risk assessment has been complete d for the patient 09/08/2024 11:19 AM EDT A Body Mass Index follow-up plan has been documented for the patient 09/15/2024 1:52 PM EDT documented as of this encounter Care Teams Global Manager Relationship Specialty Start Date End Date Alisa Kunz DO [address] [place] [phone] PCP - General Internal Medicine 03/13/21 Kodi Bustos, DO [address] [address] Surgeon Cardiothoracic Surgery 11/06/22 Sujit Arriola MD [address] [place] [address] Consulting Physician Pulmonary Disease 11/06/22 Sujit Reyes MD [address] [place] [address] Referring Physician 12/04/22 Patricia Yañez LPN [facility] TCM Nurse 08/25/24 10/17/24 Zee Lazar DO [address] [place] [id number] Resident 09/08/24 documented as of this encounter
--- OUTSIDE RECORDS SUMMARY | 2024-10-18 14:53 | XMS_ITS | Encounter Summary ---
Author Organization [facility] Address [address] [place] [address] Care Team Providers Care Water Resources Business Segment Leader Name Role Phone Alisa Kunz DO Primary Care Provider Kodi Bustos DO Unavailable [phone] Sujit Arriola MD Unavailable [phone] Sujit Reyes MD Unavailable [phone] Patricia Yañez LPN Unavailable Unavailab Zee Lr DO Unavailable [phone] Reason for Visit * Reason Onset Date Comments HCN Lab/home Health 09/28/2024 Encounter Details Date Type Department Care Team (Late st Contact Info) Description 09/28/2024 Telephone [facility] Internal Medicine [address], 3rd [place] [address] Alisa Kunz DO [address] [place] [address] HCN Lab/home Health Social History [...] often do you attend chur ch or presybeterian services? 1 to 4 times [...] Patient Health Questionnaire-2 Score 0 09/08/2024 [facility] - Occupational Stress Questionnaire [...] in a senior living (including now)? No 09/17/2024 CAGE ASSESSMENT Answer [...] first t anselmo in the morning (EYE-WINDOW GLAZIER HELPER) to steady your nerves or to get rid of a hangover? 0 08/14/2024 CAGE Questionnaire Score 0 025 Utilities Answer Date Recorded In the past 12 months has th e [employer], gas, oil, or water [employer] threatened to shut off services in your [...] suffice. * Telephone Encounter - Julius Be Derrick - 09/28/2024 4:14 PM EDT Lab /Home [...] advise and frequency) Company and Caller Name: [employer] [phone] JUNE VERBAL Fax Number (if outside ): None Best contact number: [employer] [phone] Optimal time of day to reach caller: ANYTIME Additional comments/information from caller: None Note: Please do not reply to this message. Follow-up communication and further actions as a result of this message need to be communicated with the patient directly, if the patient is not active onMyChart. If the patient is active on MyChart, they will receive notification of the communication/outcome via [employer]. documented in this encounter Plan of Treatment Upcoming Encounters Date Type Department Care Team (Late st Contact Info) Description 10/25/2024 10:00 AM EDT Office Visit [facility] Nephrology, Bone & Mineral Metabolism [address] [facility], [address] [place] [address] Bryon Brandon MD 800 [place] [address] 10/27/2024 1:40 PM EDT Office Visit [facility] Endocrinology [address] [place] [address] Anne-Marie Kolb, CIRCLE BEVELER [address] [place] [address] 12/23/2024 4:00 PM EDT [facility] [address], 2nd [place] [address] Lavern Shoemaker MD [address] [place] [address] 02/02/2025 8:40 AM EST Office Visit [facility] Internal Medicine [address], 3rd [place] [address] Alisa Kunz DO [address] [place] [address] documented as of this encounter [...] documented as of this encounter Care Teams Water Resources Business Segment Leader Relationship Specialty Start Date End Date Alisa Kunz DO [address] [address] PCP - General Internal Medicine 03/13/21 Kodi Bustos DO [address] [place] [address] Surgeon Cardiothoracic Surgery 11/06/22 Sujit Arriola MD [address] [place] [address] Consulting Physician Pulmonary Disease 11/06/22 Sujit Reyes MD [address] [place] [address] Referring Physician 12/04/22 Patricia Yañez LPN [facility] TCM Nurse 08/25/24 10/17/24 Zee Lazar DO [address] [place] [address] Resident 09/08/24 documented as of this encounter
--- OUTSIDE RECORDS SUMMARY | 2024-10-18 14:53 | XMS_ITS | Encounter Summary ---
Author Organization Healthcare Address [address] [place] [address] Care Team Providers Care Multifocal Button Inspector Name Role Phone Alisa Kunz DO Primary Care Provider [phone] Kodi Bustos DO Unavailable [phone] Sujit Arriola MD Unavailable [phone] Sujit Reyes MD Unavailable [phone] Patricia Yañez LPN Unavailable Unavailab Zee Lr DO Unavailable [phone] Encounter Details Date Type Department Care Team [...] Recorded Patient Health Questionnaire-2 Score 0 09/08/2024 [facility] of Occupat ional [facility] - Occupational Stress Questionnaire Answer Date Recorded [...] drink first t anselmo in the morning (EYE-CASCARA BARK CUTTER) to steady your nerves or to [...] 10/25/2024 10:00 AM EDT Office Visit [facility] Nephrology, Bone & Mineral Metabolism [address] [facility], [address] [place] [address] Bryon Brandon MD 800 [place] [address] 10/27/2024 1:40 PM EDT Office Visit [facility] Endocrinology [address] [place] [address] Anne-Marie Kolb, AUTO BODY ESTIMATOR [address] [facility] [address] [place] [address] 12/23/2024 4:00 PM EDT Office Visit [facility] Medicine Specialties [address], 2nd [place] [address] Lavern Shoemaker MD [address] [place] [id number] 02/02/2025 8:40 AM EST Office Visit [facility] Internal Medicine [address], 3rd [place] [address] Alisa Kunz DO [address] [facility] [address] [place] [address] documented as of this encounter [...] documented as of this encounter Care Teams Multifocal Button Inspector Relationship Specialty Start Date End Date Alisa Kunz DO [address] [address] PCP - General Internal Medicine 03/13/21 Kodi Bustos DO [address] [place] [phone] Surgeon Cardiothoracic Surgery 11/06/22 Sujit Arriola MD [address] [place] [address] Consulting Physician Pulmonary Disease 11/06/22 Sujit Reyes MD [address] [place] [address] Referring Physician 12/04/22 Patricia Yañez, DRY HOUSE WHEELER [facility] TCM Nurse 08/25/24 10/17/24 Zee Lazar DO [address] [place] [address] Resident 09/08/24 documented as of this encounter
--- OUTSIDE RECORDS SUMMARY | 2024-10-18 14:53 | XMS_ITS | Encounter Summary ---
Author Organization [facility] Address [address] [place] [address] Care Team Providers Care Corrugator Machine Operator Name Role Phone ZeNitin willettgricel Wild DO Primary Care Provider [phone] Kodi Bustos DO Unavailable [phone] Sujit Arriola MD Unavailable [phone] Suijt Reyes MD Unavailable [phone] Patricia Yañez CHIEF COMMUNICATIONS OFFICER Unavailable Unavailab Zee Lr DO Unavailable [phone] Encounter Details Date Type Department Care Team (Late st Contact Info) Description 09/20/2024 Telephone [facility] Endocrinology [address] [place] [address] Anne-Marie Kolb L, CLOTH GRADER [address] [facility] [address] [place] [address] Social History Tobacco Use Types [...] often do you attend chur ch or uatsdin services? 1 to 4 times per year [...] Recorded Patient Health Questionnaire-2 Score 0 09/08/2024 [facility] of Occupat ional Health - [...] any time in the past 12 m [facility], were you homeless or living [...] any time in the past 12 m [facility], were you homeless or living [...] drink first t anselmo in the morning (EYE-KILN STOKER) to steady your nerves or to get rid of a hangover? 0 08/14/2024 CAGE Questionnaire Score 0 025 Utilities Answer Date Recorded In the past 12 months has th [employer], gas, oil, or water [employer] threatened to shut off services in your [...] Pt verbalized understanding. * Telephone Encounter - VALENTINECARRIE - 09/20/2024 3:01 PM EDT Pt is having issues getting her BG regulated, they have been running 400 and higher. documented in this encounter Plan of Treatment Upcoming Encounters Date Type Department Care Team (Late st Contact Info) Description 10/25/2024 10:00 AM EDT Office Visit [facility] Nephrology, Bone & Mineral Metabolism [address] [facility], [address] [place] [address] Bryon Brandon MD 800 [place] [address] 10/27/2024 1:40 PM EDT Office Visit [facility] Endocrinology [address] [place] [address] Anne-Marie Kolb L, CLOTH GRADER [address] [facility] 125 [place] [address] 12/23/2024 4:00 PM EDT Office Visit [facility] Medicine [facility] [address], 2nd [place] [address] Lavern Shoemaker MD [address] [place], [place] [id number] 02/02/2025 8:40 AM EST Office Visit [facility] Internal Medicine [address], 3rd [place] [address] Alisa Kunz, DO [address] [place] [address] documented as of this encounter Visit Diagnoses [...] documented as of this encounter Care Teams Corrugator Machine Operator Relationship Specialty Start Date End Date Alisa Knuz DO [address] [place] [address] PCP - General Internal Medicine 03/13/21 Kodi Bustos DO [address] [address] Surgeon Cardiothoracic Surgery 11/06/22 Sujit Arriola MD [address] [place] [address] Consulting Physician Pulmonary Disease 11/06/22 Sujit Reyes MD [address] [place] [address] Referring Physician 12/04/22 Patricia Yañez LPN [facility] TCM Nurse 08/25/24 10/17/24 Zee Lazar DO [address] [place], [place] [phone] Resident 09/08/24 documented as of this encounter
--- OUTSIDE RECORDS SUMMARY | 2024-10-18 14:53 | XMS_ITS | Encounter Summary ---
Author Organization [facility] Address [address] [place] [address] Care Team Providers Care Spinning Bath Patroller Name Role Phone Alisa Kunz DO Primary Care Provider Kodi Bustos DO Unavailable [phone] Sujit Arriola MD Unavailable [phone] Sujit Reyes MD Unavailable [phone] Patricia Yañez LPN Unavailable Unavailab Zee Lr DO Unavailable [phone] Encounter Details Date Type Department Care Team (Late st Contact Info) Description 09/17/2024 Orders Only [facility] Internal Medicine [address], [address]rd [place] [address] Alisa Kunz DO [address] [place] [address] Social History Tobacco Use Types [...] drink first t anselmo in the morning (EYE-STRADDLE BUGGY OPERATOR) to steady your nerves or to get rid of a hangover? 0 08/14/2024 CAGE Questionnaire Score 0 025 Utilities Answer Date Recorded In the past 12 months has th e [employer], gas, oil, or water company threatened to [...] 10/25/2024 10:00 AM EDT Office Visit [facility] Nephrology, Bone & Mineral Metabolism [address] [facility], [address] [place] [address] Bryon Brandon MD 800 [place] [address] 10/27/2024 1:40 PM EDT Office Visit [facility] Endocrinology [address] [place] [address] Anne-Marie Kolb, DRY TRANSFER WORKER [address] [place] [address] 12/23/2024 4:00 PM EDT Office Visit [facility] [address] 2nd [place] [address] Lavern Shoemaker MD 800 [place] [address] 02/02/2025 8:40 AM EST Office Visit [facility] Internal Medicine [address], 3rd [place] [address] Alisa Kunz DO [address] [place] [address] documented as of this encounter [...] documented as of this encounter Care Teams Spinning Bath Patroller Relationship Specialty Start Date End Date Alisa Kunz DO [address] [facility] 304 [place] [address] PCP - General Internal Medicine 03/13/21 Kodi Bustos DO [address] [place] [address] Surgeon Cardiothoracic Surgery 11/06/22 Sujit Arriola MD [address] [place] [address] Consulting Physician Pulmonary Disease 11/06/22 Sujit Reyes MD [address] [place] [address] Referring Physician 12/04/22 Patricia Yañez LPN [facility]ICS CLIN[facility] TCM Nurse 08/25/24 10/17/24 Zee Lazar DO [address] [place] [address] Resident 09/08/24 documented as of this encounter
--- OUTSIDE RECORDS SUMMARY | 2024-10-18 14:53 | XMS_ITS | Encounter Summary ---
Author Organization [facility] Address [address] [place] [address] Care Team Providers Care Marine Extension Agent Name Role Phone ZeNitin willettgricel Wild DO Primary Care Provider Kodi Bustos DO Unavailable [phone] Sujit Arriola MD Unavailable [phone] Sujit Reyes MD Unavailable [phone] Patricia Yañez LPN Unavailable Unavailab Zee Lr DO Unavailable [phone] Encounter Details Date Type Department Care Team (Late st Contact Info) Description 09/28/2024 [facility]phone [facility] [address] [place] [address] Anne-Marie Kolb L, DYNAMOMETER TESTER ENGINE [address] [facility] 125 [place] [address] Social History Tobacco Use Types [...] Recorded Patient Health Questionnaire-2 Score 0 09/08/2024 [facility] of Occupat ional Health - Occupational Stress [...] drink first t anselmo in the morning (EYE-CCU NURSE) to steady your nerves or to get rid of a hangover? 0 08/14/2024 CAGE Questionnaire Score 0 025 Utilities Answer Date Recorded In the past 12 months has th e [employer], gas, oil, or water [employer] threatened to shut off services in your [...] Description 10/25/2024 10:00 AM EDT Office Visit [facility] Nephrology, Bone & Mineral Metabolism [address] [facility], [address] [place] [address] Bryon Brandon MD 800 [place] [address] 10/27/2024 1:40 PM EDT Office Visit [facility] Endocrinology [address] [place] [address] Anne-Marie Kolb L, DYNAMOMETER TESTER ENGINE [address] [place] [address] 12/23/2024 4:00 PM EDT Office Visit [facility] Medicine Specialties [address] 2nd [place] [address] Lavern Shoemaker MD 800 [place], [place] [phone] 02/02/2025 8:40 AM EST Office Visit [facility] Internal Medicine [address] 3rd [place] [address] Alisa Kunz DO [address] [place] [address] documented as of this encounter [...] as of this encounter Care Teams Marine Extension Agent Relationship Specialty Start Date End Date Alisa Kunz DO [address] [place] [address] PCP - General Internal Medicine 03/13/21 Kodi Bustos DO [address] [address] Surgeon Cardiothoracic Surgery 11/06/22 Sujit Arriola MD [address] [place] [address] Consulting Physician Pulmonary Disease 11/06/22 Sujit Reyes MD [address] [facility] [address] [place] [address] Referring Physician 12/04/22 Patricia Yañez LPN [facility] TCM Nurse 08/25/24 10/17/24 Zee Lazar DO [address] [place] [id number] Resident 09/08/24 documented as of this encounter
--- OUTSIDE RECORDS SUMMARY | 2024-10-18 14:53 | XMS_ITS | Encounter Summary ---
Author Organization [facility] Address [address] [place] [address] Care Team Providers Care Digital Media Sales Consultant Name Role Phone Alisa Kunz DO Primary Care Provider [phone] Kodi Bustos DO Unavailable [phone] Sujit Arriola MD Unavailable [phone] Sujit Reyes MD Unavailable [phone] Patricia Yañez LPN Unavailable Unavailab Zee Lr DO Unavailable [phone] Reason for Visit * Reason Comments Follow-up Encounter Details Date Type Department Care Team (Late st Contact Info) Description 09/22/2024 Patient Outreach [facility] [address] [facility], [address] [place] [address] Patricia Yañez LPN [facility] Follow-up Social History Tobacco Use [...] 09/08/2024 [facility] of Occupat ional Health [...] drink first t anselmo in the morning (EYE-BIAS MACHINE OPERATOR) to steady your nerves or [...] LPN - 09/22/2024 3:34 PM EDT 09/22/2024 TCM Follow-up Call Patient reached: Y Outcome: Called [...] have a cardioversion scheduled for 09/24/2024 at [facility]. Patient states that she has not been [...] 10/25/2024 10:00 AM EDT Office Visit [facility] Nephrology, Bone & Mineral Metabolism [address] [facility], [address] [place] [address] Bryon Brandon MD 800 [place] [address] 10/27/2024 1:40 PM EDT Office Visit [facility] Endocrinology [address] [place] [address] Anne-Marie Kolb L, SCREENING TECHNICIAN [address] [facility] 125 [place] [address] 12/23/2024 4:00 PM EDT Office Visit [facility] Medicine [facility] [address] 2nd [place] [address] Lavern Shoemaker MD [address] [place] [address] 02/02/2025 8:40 AM EST Office Visit [facility] Internal Medicine [address], 3rd [place] [address] Alisa Kunz, [address] [place] [address] documented as of this encounter [...] documented as of this encounter Care Teams Digital Media Sales Consultant Relationship Specialty Start Date End Date Alisa Kunz DO [address] [place] [address] PCP - General Internal Medicine 03/13/21 Kodi Bustos, DO [address] [address] Surgeon Cardiothoracic Surgery 11/06/22 Sujit Arriola MD [address] [place] [address] Consulting Physician Pulmonary Disease 11/06/22 Sujit Reyes MD [address] [place] [address] Referring Physician 12/04/22 Patricia Yañez LPN [facility]ED[facility] TCM Nurse 08/25/24 10/17/24 Zee Lazar DO [address] [place], [place] [id number] Resident 09/08/24 documented as of this encounter
--- OUTSIDE RECORDS SUMMARY | 2024-10-18 14:54 | XMS_ITS | Encounter Summary ---
Author Organization Healthcare Address [address] [place] [address] Care Team Providers Care Nuisance Wildlife Specialist Name Role Phone Ze, Alias Wild DO Primary Care Provider Kodi Bustos DO Unavailable [phone] Sujit Arriola MD Unavailable [phone] Sujit Reyes MD Unavailable [phone] Zully Caldwell COTTAGE PARENT Unavailable Unavailable Ekaterina Gómez Unavailable Unavailable Patricia Yañez COTTAGE PARENT Unavailable Unavailab le Encounter Details Date Type Department Care Team (Late st Contact Info) Description 08/06/2024 Telephone [facility] Endocrinology [address] [place] [address] Anne-Marie Kolb, MANAGER STERILE [address] [facility] [address] [place] [address] Social History Tobacco Use Types [...] often do you attend chur ch or buddhist services? 1 to 4 times per year [...] Recorded Patient Health Questionnaire-2 Score 0 08/04/2024 [facility] of Occupat ional Health [...] drink first t anselmo in the morning (EYE-DAIRY FEED SALES CONSULTANT) to steady your nerves or to get rid of a hangover? 0 08/14/2024 CAGE Questionnaire Score 0 025 Utilities Answer Date Recorded In the past 12 months has e [place], gas, oil, or water [employer] threatened to shut off services in your [...] Description 10/25/2024 10:00 AM EDT Office Visit [facility] Nephrology, Bone & Mineral Metabolism [address] [facility], [address] [place] [address] Bryon Brandon MD [address] [place] [address] 10/27/2024 1:40 PM EDT Office Visit [facility] Endocrinology [address] [place] [address] Anne-Marie Kolb, MANAGER STERILE 2[address] [facility] [address] [place] [address] 12/23/2024 4:00 PM EDT Office Visit [facility] Medicine Specialties [address], 2nd [place] [address] Lavern Shoemaker MD [address] [place], [place] [id number] 02/02/2025 8:40 AM EST Office Visit [facility] Internal Medicine [address], 3rd [place] [address] Alisa Kunz, [address] [facility] [address] [place] [address] documented as of this encounter [...] documented as of this encounter Care Teams Nuisance Wildlife Specialist Relationship Specialty Start Date End Date Alisa Kunz DO [address] [place] [address] PCP - General Internal Medicine 03/13/21 Kodi Bustos DO [address] [address] Surgeon Cardiothoracic Surgery 11/06/22 Sujit Arriola MD [address] [place] [address] Consulting Physician Pulmonary Disease 11/06/22 Sujit Reyes MD [address] [place] [address] Referring Physician 12/04/22 Zully Caldwell LPN [employer] [place] [address] TCM Nurse 07/16/24 08/15/24 Ekaterina Gómez Engineer System Administrator Manager Of Financial 08/16/24 08/16/24 Patricia Yañez LPN [facility] TCM Nurse 08/25/24 10/17/24 documented as of this encounter
--- OUTSIDE RECORDS SUMMARY | 2024-10-18 14:54 | XMS_ITS | Encounter Summary ---
Author Organization Healthcare Address [address] [place] [address] Care Team Providers Care Parts Clerk Name Role Phone Alisa Kunz DO Primary Care Provider [phone] Kodi Bustos DO Unavailable [phone] Sujit Arriola MD Unavailable [phone] Sujit Reyes MD Unavailable [phone] Encounter Details Date Type Department Care [...] first t anselmo in the morning (EYE-FOOD QUALITY TESTER) to steady your nerves or to get rid of a hangover? 0 08/14/2024 CAGE Questionnaire Score 0 025 Utilities Answer Date Recorded In the past 12 months has th e Sm[employer], gas, oil, or water Results Scorecard threatened to shut off services in your [...] 10/25/2024 10:00 AM EDT Office Visit [facility] Nephrology, Bone & Mineral Metabolism [address] [facility], [address] [place] [address] Bryon Brandon MD [address] [place] [address] 10/27/2024 1:40 PM EDT Office Visit [facility] Endocrinology [address] [place] [address] Anne-Marie Kolb, CERTIFIED CODER [address] [place] [address] 12/23/2024 4:00 PM EDT Office [facility] Medicine Specialties [address], 2nd [place] [address] Lavern Shoemaker MD [address] [place], [place] [phone] 02/02/2025 8:40 AM EST Office Visit [facility] Internal Medicine [address], 3rd [place] [address] Alisa Kunz DO [address] [place] [address] documented as of this encounter [...] documented as of this encounter Care Teams Parts Clerk Relationship Specialty Start Date End Date Alisa Kunz DO [address] [place] [address] PCP - General Internal Medicine 03/13/21 Kodi Bustos DO [address] [address] Surgeon Cardiothoracic Surgery 11/06/22 Sujit Arriola MD [address] [place] [address] Consulting Physician Pulmonary Disease 11/06/22 Sujit Reeys MD [address] [place] [address] Referring Physician 12/04/22 documented as of this encounter
--- OUTSIDE RECORDS SUMMARY | 2024-10-18 14:54 | XMS_ITS | Encounter Summary ---
[facility] [address] [place] [address] Care Team Providers Care Printing Agent Name Role Phone Alisa Kunz Primary Care Provider [phone] Encounter Details Date Type Department Care Team (Latest Contact Info) Description 10/05/2024 Anticoagulation Visit [facility] [address] [facility] [address] [place] [address] Mike Mariee, Contract Forester Left ventricular apical thrombus (Primary Dx) Social [...] this encounter Progress Notes * Mike Mariee, Contract Forester - 10/05/2024 8:42 AM EDT [facility] Progress Note Patient Demographics Method of INR reporting: iiMonde Home Monitor SN [id number] Estimated OOP Cost: Indication: Left Ventricular Atypical Thrombus (~2012) Referring Provider Nanette Pryor APRN Reason patient is not on a DOAC: Goal INR: 2-3 Warfarin Start Date ~02/12/24 Reason patient is not on home monitor: [id number]: Planned Duration of Therapy Indefinite Relevant medical [...] - HM 1.4 - Clinic 1.32 - SALES AND DISTRIBUTION CLERK 2.8 2.0 Notes Admitted [facility] Rec'd 05/27 HM 1-BILL TODAY HM 2- no leoind; In clinic HM 3 - no bill HM 4 - no bill HM 1- BILL TODAY HM 2 - no bill Rec'd 08/11 HM 3 - no bill HM 4- no bill Rec'd 09/02 In clinic Date 09/27 10/04 Total Weekly Dose 32.5 mg 35 mg INR 1.6 2.04 Notes Rec'd 09/28 Rec'd 10/05 Patient Contact Information Verbal release: Signed 03/05/24 Preferred contact number: [phone] Alternative contact number(s): [phone] (Doron) [phone] (Ruthie) [phone] (Madyson) Patient Appropriate for WarfNoCall ? No Preferred contact name: Michelle Felipe Alternative contact name(s): Doron Felipe () Ruthie Chong (Daughter) Madyson Hernandes (Daughter) Preferred contact relation: Self Lab contact information (if applicable): Subjective Findings Drug Interactions Dietary Findings Historical: duloxetine, levothyroxine, ezetimibe, furosemide Historical GLV intake (date updated): broccoli/cabbage every now and then, not much other GLV New (including OTC): Levofloxacin 500 mg GLV changes this encounter: None Alcohol and Tobacco Historical: 2 beers or 1 cocktail per evening, no tobacco New: None Patient Findings: Positives: Upcoming invasive procedure, Change in medications Negatives: Signs/symptoms of thrombosis, Signs/symptoms of bleeding, Laboratory test error suspected, Change in health, Change in alcohol use, Change in activity, Emergency department visit, Upcomingdental procedure, Missed doses, Extra doses, Change in diet/appetite, Hospital admission, Bruising,Other complaints Comments: Patient has been taking Levofloxacin 500 mg once daily since 10/01 for blisters. Patient has not been taking mycophenolate while on Levofloxacin. Patient states she has four doses left of antibiotic. Cardioversion upcoming but not scheduled. All other findings negative per patient. Assessment and Plan: INR was therapeutic yesterday at 2.04 (2.0-3.0). Per Marj Delgado, PharmD instructed patient to continue increased weekly dose of warfarin 5 mg daily until recheck. Recheck INR in 1 week, 10/11. Patient prefers testing Tuesdays. Verbal and written information provided. Michelle Felipe expresses understanding by teach back and has no further questions at this time. Mike Kodi [facility] 10/05/2024 09:01 EDT I, Marj Delgado, PharmD, have reviewed the note in full and agree with the assessment and plan. 10/05/24 09:48 EDT documented in this encounter Plan of Treatment Upcoming Encounters Date Type Department Care Team (Late st Contact Info) Description 10/21/2024 2:15 PM EDT Office Visit [facility] SLEEP MEDICINE [address] [facility] [place] [address] Shannen Horta, LOCK AND DAM REPAIRER [address] [facility] [address] [place], [place] [id number] 12/02/2024 3:30 PM EDT Office Visit [facility] CARDIOLOGY [address] [place] [address] [place] [address] Sujit Reyes MD 17[address] [facility] [address] [place], [place] [address] 01/19/2025 1:45 PM EST Office Visit [facility] CARDIOLOGY 17[address] [facility] [address] [place] [address] Naveen Velasquez MD [address] [facility] [address] [place] [address] documented as of this encounter Procedures Procedure Name Priority Date/Time Associated Diagnosis Comments SCANNED - LABS 10/05/2024 PROTIME-INR Routine 10/04/2024 documented in this encounter Results * LABS SCANNED (10/05/2024) [facility] LAB BLOOD ORDERABLES Final Re sult * Protime-INR (10/04/2024) INR 2.04 Blood 10/04/2024 Historical Provider LAB BLOOD ORDERABLES Lee Ann l Result documented in this encounter Visit Diagnoses Diagnosis Left ventricular apical thrombus- Primary documented in this encounter Care Teams Printing Agent Relationship Specialty Start Date End Date Alisa Kunz DO 0 [place] [address] PCP - General Internal Medicine 04/26/21 documented as of this encounter
--- OUTSIDE RECORDS SUMMARY | 2024-10-18 14:54 | XMS_ITS | Encounter Summary ---
[facility] Address [address] [place] [address] Care Team Providers Care Mems Device Scientist Name Role Phone Alisa Kunz Primary Care Provider [phone] Encounter Details Date Type Department Care Team (Late st Contact Info) Description 10/12/2024 Telephone [facility]IN[facility] [address] [facility] [address] [place] [address] Marj Delgado, PharmD [address] [place] [address] Social History Tobacco Use Types [...] 10:26 AM EDT Cece Prieto RN * [place] Suicide Severity Rating Scale (Screener/Recent Self-Report) Question Answer Date of Assessment Author 6. Suicidal Behavior (Lifetime) No 10:26 AM EDT Cece Prieto RN documented as of this encounter Miscellaneous Notes * Telephone Encounter - Marj Delgado, PharmD - 10/13/2024 11:43 AM EDT Spoke to patient regarding options for INR check, she is agreeable to go to outside lab for venipuncture moving forward. Already send lab order to outside lab. Patients home monitor has been giving inaccurate results, have given patient 2 meters so far and she has had issues with both monitors. Again, happy to give her another, but given her labile INR's and issues with home monitor, it would be safer and more reliable for patient to go to lab for venipuncture. Patient agreeable. Patients INR yesterday in the hospital was 1.3 - advised patient to increase dose to warfarin 7.5 mg today and continue 5 mg daily. Patient will go get INR checked on Friday at [facility]. Marj Delgado PharmD 10/13/2024 11:45 EDT * Telephone Encounter - Marj Delgado PharmD - 10/12/2024 11:24 AM EDT Spoke to Rosalba from cardio, patients INR today on admission was 1.37, still having concerns over patients home monitor. Last INR check was 2.04 on 10/04 at [facility] (not home monitor)- patient had been taking warfarin 5 mg daily at that time and was asked to continue that dose. Concerned patient is missing doses since these were both lab draws. Happy to give patient a new home monitor, patient stated she would call when she had a ride into clinic. Would like to re-train patient on home monitor because she has difficulty using her current monitor and calls clinic often fordirections over the phone, so also concerned that could be a reason for inaccurate results. Will follow up with patient tomorrow since she will be undergoing anesthesia today. Marj Delgado PharmD 10/12/2024 11:28 EDT documented in this encounter Plan of Treatment Upcoming Encounters Date Type Department Care Team (Late st Contact Info) Description 10/21/2024 2:15 PM EDT Office Visit [facility] SLEEP MEDICINE [address] [place] [address] Shannen Horta, COMMUNITY ARTS WORKER [address] [facility] [address] [place] [address] 12/02/2024 3:30 PM EDT Office Visit [facility] CARDIOLOGY [address] [place] [address] [place] [address] Sujit Reyes MD [address] [place] [address] [place] [address] 01/19/2025 1:45 PM EST Office Visit [facility] CARDIOLOGY [address] [facility] [address] [place] [address] Naveen Velasquez MD [address] [place] [address] documented as of this encounter Visit Diagnoses Not on filedocumented in this encounter Care Teams Mems Device Scientist Relationship Specialty Start Date End Date Alisa Kunz DO [address] [place], [place] [id number] PCP - General Internal Medicine 04/26/21 documented as of this encounter
--- OUTSIDE RECORDS SUMMARY | 2024-10-18 14:54 | XMS_ITS | Encounter Summary ---
Author Organization Healthcare Address [address] [place] [address] Care Team Providers Care Office Correspondent Name Role Phone Alisa Kunz DO Primary Care Provider [phone] Kodi Bustos DO Unavailable [phone] Sujit Arriola MD Unavailable [phone] Sujit Reyes MD Unavailable [phone] Encounter Details Date Type Department Care [...] Patient Health Questionnaire-2 Score 0 08/04/2024 [facility] of Occupat ional Health - [...] drink first t anselmo in the morning (EYE-MELANGEUR OPERATOR) to steady your nerves or to get rid of a hangover? 0 08/14/2024 CAGE Questionnaire Score 0 025 Utilities Answer Date Recorded In the past 12 months has th e [employer], gas, oil, or water [employer] threatened to shut off services in your [...] Description 10/25/2024 10:00 AM EDT Office Visit [facility] Nephrology, Bone & Mineral Metabolism [address] [facility], [address] [place] [address] Bryon Brandon MD [address] [place] [address] 10/27/2024 1:40 PM EDT Office Visit [facility] Endocrinology [address] [place] [address] Anne-Marie Kolb, SOCIAL WORK FACULTY MEMBER [address] [place] [address] 12/23/2024 4:00 PM EDT Office Visit [facility] Medicine Specialties [address], 2nd [place] [address] Lavern Shoemaker MD 800 [place] [address] 02/02/2025 8:40 AM EST Office Visit [facility] Internal Medicine [address], 3rd [place] [address] Alisa Kunz DO [address] [place] [address] documented as of this encounter [...] documented as of this encounter Care Teams Office Correspondent Relationship Specialty Start Date End Date Alisa Kunz DO [address] [place] [address] PCP - General Internal Medicine 03/13/21 Kodi Bustos DO [address] [place] [address] Surgeon Cardiothoracic Surgery 11/06/22 Sujit Arriola MD [address] [place] [address] Consulting Physician Pulmonary Disease 11/06/22 Sujit Reyes MD [address] [place] [address] Referring Physician 12/04/22 documented as of this encounter
--- OUTSIDE RECORDS SUMMARY | 2024-10-18 14:54 | XMS_ITS | Encounter Summary ---
Author Organization [facility] Address [address] [place] [address] Care Team Providers Care Customer Program Manager Name Role Phone Alisa Kunz Primary Care Provider [phone] Encounter Details Date Type Department Care Team (Late st Contact Info) Description 10/07/2024 Telephone [facility] [address]20 [facility] [address] [place] [address] Mike Mariee, Hogshead Hooper Social History Tobacco Use Types Packs/Day Years [...] no 09/24/2024 Feels Threatened by Someone no 07/1 10/2024 Does Anyone Try to Keep You From [...] encounter Miscellaneous Notes * Telephone Encounter - Mike Mariee, Hogshead Hooper - 10/07/2024 2:16 PM EDT Called patient to discuss HM or remote lab options for INR rechecks. Patient would prefer to continue with Ge HM and will schedule in clinic appt in the future to obtain replacement HM. Mike Mariee [facility] 10/07/2024 14:18 EDT documented in this encounter Plan of Treatment Upcoming Encounters Date Type Department Care Team (Late st Contact Info) Description 10/21/2024 2:15 PM EDT Office Visit [facility] SLEEP MEDICINE [address] [place] [address] Shannen Horta, VICE PRESIDENT OF PROCUREMENT 17[address] [facility] [address] [place] [address] 12/02/2024 3:30 PM EDT Office Visit [facility] CARDIOLOGY [address] [place] [address] [place] [address] Sujit Reyes MD [address] [place] [address] 01/19/2025 1:45 PM EST Office Visit [facility] CARDIOLOGY [address] [place] [address] Naveen Velasquez MD [address] [place] [address] documented as of this encounter Visit Diagnoses Not on filedocumented in this encounter Care Teams Customer Program Manager Relationship Specialty Start Date End Date Alisa Kunz DO [address] [facility] [address] [place], [place] [address] PCP - General Internal Medicine 04/26/21 documented as of this encounter
--- OUTSIDE RECORDS SUMMARY | 2024-10-18 14:54 | XMS_ITS | Encounter Summary ---
Author Organization [facility] Address [address] [place] [address] Care Team Providers Care Senior Speech Pathologist Name Role Phone Alisa Kunz Primary Care Provider [phone] Reason for Referral * Cardiac (Routine) - Closed Specialty Diagnoses / Procedures Referred By Luis Armando t Referred To Contact Diagnoses Paroxysmal atrial fibrillation Procedures Cardioversion External in Cardiology Department Naveen Velasquez MD [address] [facility] [address] [place] [address] Phone: tel: fax: Referral ID Status Reason Start Date Expiration Date Visits Re quested Visits Authorized [id number] Closed 10/12/2024 01/04/2026 1 1 Reason for Visit * Reason Onset Date Comments DR. VELASQUEZ - CARDIOVERSION 10/05/2024 Encounter Details Date Type Department Care Team (Late st Contact Info) Description 10/05/2024 Telephone [facility] CARDIOLOGY [address] [facility] [address] [place] [address] Naveen Velasquez MD [address] [facility] [address] [place] [address] DR. VELASQUEZ - CARDIOVERSION Social History Tobacco Use Types Packs/Day Years [...] Telephone Encounter - Halima Cortes RN - 10/05/2024 6:33 PM EDT Patient notified and aware. Order placed for cardioversion. * Telephone Encounter - Sahara Christianson RegSched Rep - 10/05/2024 9:10 AM EDT Caller: Michelle Felipe Relationship: Self Best call back number: [phone] What is the best time to reach you: ANYTIME Who are you requesting to speak with (clinical staff, provider, specific staff member): CLINICAL What was the call regarding: PATIENT CALLED IN TO LET DR. VELASQUEZ KNOW THAT HER INR IS NOW 2.04 AND THAT SHE WOULD LIKE TO GO AHEAD AND SCHEDULE THE CARDIOVERSION. PATIENT WOULD LIKE TO SCHEDULE THE PROCEDURE FOR SOON POSSIBLE. Is it okay if the provider responds through MyChart: PREFERS A CALL PATIENT REQUESTED THAT THIS BE SENT HIGH PRIORITY documented in this encounter Plan of Treatment Upcoming Encounters Date Type Department Care Team (Late st Contact Info) Description 10/21/2024 2:15 PM EDT Office Visit [facility] SLEEP MEDICINE [address] [address] Shannen Horta, YAMILET 17[address] [facility] [address] [place] [address] 12/02/2024 3:30 PM EDT Office Visit [facility] CARDIOLOGY [address] [place] [address] Sujit Reyes MD [address] [facility] [address] [place] [address] 01/19/2025 1:45 PM EST Office Visit [facility] CARDIOLOGY 17[address] [facility] [address] [place] [address] Naveen Velasquez MD [address] [facility] [address] [place], [place] [id number] documented as of this encounter Results * Cardioversion External in Cardiology Department (10/12/2024 3:27 PM EDT) Anatomical Region Laterality Modality Other Narrative 10/12/2024 3:41 PM EDT Not performed secondary to left atrial appendage thrombus Cardioversion Procedure Moderate sedation was utilized. Cardioversion Shock 1 0 joules delivered to patient. us Naveen Velasquez MD [facility] C[facility] ORDERABL ES Final Result documented in this encounter Visit Diagnoses Diagnosis Paroxysmal atrial fibrillation- Primary Atrial fibrillation Paroxysmal atrial fibrillation Atrial fibrillation documented in this encounter Care Teams Senior Speech Pathologist Relationship Specialty Start Date End Date Alisa Kunz DO [address] [place] [address] PCP - General Internal Medicine 04/26/21 documented as of this encounter
--- OUTSIDE RECORDS SUMMARY | 2024-10-18 14:54 | XMS_ITS ---
Author Organization [facility] Address [address] [place] [address] Care Team Providers Care Clinical Pharmacy Technician Name Role Phone Alisa Kunz Torri DO Primary Care Provider [phone] Kodi Bustos DO Unavailable [phone] Sujit Arriola MD Unavailable [phone] Sujit Reyes MD Unavailable [phone] Zee Lazar DO Unavailable [phone] Transitional Care Management Status:Closed (Closed) Start date:08/25/2024 Enrollment date:08/25/2024 Enrollment reason:Identified using hospital discharge data End date:09/17/2024 Close reason:Patient Readmitted Overview This episode type is for outpatient care managers enrolling patients in the [facility] Transitional Care Management program. Continued Care and Services Coordination
--- OUTSIDE RECORDS SUMMARY | 2024-10-18 14:54 | XMS_ITS | Encounter Summary ---
[facility] Address [address] [place] [address] Care Team Providers Care Heel Cementer Name Role Phone Alisa Kunz Primary Care Provider [phone] Encounter Details Date Type Department Care Team (Latest Contact Info) Description 10/12/2024 Travel Social History Tobacco Use Types Packs/Day [...] 10:26 AM EDT Cece Prieto RN * [place] Suicide Severity Rating Scale (Screener/Recent Self-Report) Question Answer Date of Assessment Author 6. Suicidal Behavior (Lifetime) No 10:26 AM EDT Cece Prieto RN documented as of this encounter Plan of Treatment Upcoming Encounters Date Type Department Care Team (Late st Contact Info) Description 10/21/2024 2:15 PM EDT Office Visit [facility] SLEEP MEDICINE [address] [place] [phone] Shannen Horta, YAMILET [address] [facility] [address] [place] [address] 12/02/2024 3:30 PM EDT Office Visit [facility] CARDIOLOGY [address] [place] [address] [address] Sujit Reyes MD [address] [place] [address] 01/19/2025 1:45 PM EST Office Visit [facility] CARDIOLOGY [address] [place] [address] Naeven Velasquez MD [address] [place] [address] documented as of this encounter Visit Diagnoses Not on filedocumented in this encounter Care Teams Heel Cementer Relationship Specialty Start Date End Date Alisa Kunz DO [address] [facility] [address] [place] [address] PCP - General Internal Medicine 04/26/21 documented as of this encounter
--- OUTSIDE RECORDS SUMMARY | 2024-10-18 14:54 | XMS_ITS | Encounter Summary ---
Author Organization Healthcare Address [address] [place] [address] Care Team Providers Care Thread Grinder Tool Name Role Phone Alisa Kunz DO Primary Care Provider [phone] Kodi Bustos DO Unavailable [phone] Sujit Arriola MD Unavailable [phone] Sujit Reyes MD Unavailable [phone] Encounter Details Date Type Department Care [...] Recorded Patient Health Questionnaire-2 Score 0 08/04/2024 [facility] Occupat ional Health - [...] drink first t anselmo in the morning (EYE-MANUFACTURING GROUP LEADER) to steady your nerves or to get rid of a hangover? 0 08/14/2024 CAGE Questionnaire Score 0 025 Utilities Answer Date Recorded In the past 12 months has th e [employer], gas, oil, or water [employer] threatened to shut off services in [...] 10/25/2024 10:00 AM EDT Office Visit [facility] Nephrology, Bone & Mineral Metabolism [address] [facility], [address] [place] [address] Bryon Brandon MD [address] [place] [address] 10/27/2024 1:40 PM EDT Office Visit [facility] Endocrinology [address] [place] [address] Anne-Marie Kolb, CELERY TIER [address] [place] [address] 12/23/2024 4:00 PM EDT Office Visit [facility] Medicine Specialties [address], 2nd [place] [address] Lavern Shoemaker MD 800 [place], [place] [id number] 02/02/2025 8:40 AM EST Office Visit [facility] Internal Medicine [address], 3rd [place] [address] Alisa Kunz DO [address] [place] [address] documented as [...] documented as of this encounter Care Teams Thread Grinder Tool Relationship Specialty Start Date End Date Alisa Kunz DO [address] [place] [address] PCP - General Internal Medicine 03/13/21 Kodi Bustos DO [address] [place] [phone] Surgeon Cardiothoracic Surgery 11/06/22 Sujit Arriola MD [address] [place] [address] Consulting Physician Pulmonary Disease 11/06/22 Sujit Reyes MD [address] [place] [address] Referring Physician 12/04/22 documented as of this encounter
--- OUTSIDE RECORDS SUMMARY | 2024-10-18 14:54 | XMS_ITS | Encounter Summary ---
Author Organization [facility] Address [address] [place] [address] Care Team Providers Care Recovery Engineer Name Role Phone Alisa Kunz DO Primary Care Provider Kodi Bustos DO Unavailable [phone] Sujit Arriola MD Unavailable [phone] Sujit Reyes MD Unavailable [phone] Zully Caldwell PHYTOPATHOLOGY TEACHER Unavailable Unavailable Ekaterina Gómez Unavailable Unavailable Patricia Yañez PHYTOPATHOLOGY TEACHER Unavailable Unavailab Zee Lr DO Unavailable [phone] Reason for Visit * Reason Onset Date Comments HCN Clinical Concern/Question 08/09/2024 Encounter Details Date Type Department Care Team (Late st Contact Info) Description 08/09/2024 Telephone [facility] Loranger Winton [address] [facility], [address] [place] [address] Cassius Gonzales MD [address] [place] [address] HCN Clinical Concern/Question Social History [...] Questionnaire-2 Score 0 09/08/2024 [facility] - Occupational Stress Questionnaire Answer [...] first t anselmo in the morning (EYE-SUPERVISOR ELECTRIC) to steady your nerves or to get rid of a hangover? 0 08/14/2024 CAGE Questionnaire Score 0 025 Utilities Answer Date Recorded In the past 12 months has th [employer], gas, oil, or water [employer] threatened to shut off services in your [...] Score 0 09/08/2024 11:19 AM EDT Shashank uBrrows * Question Answer Date of Assessment Author [...] down Not at all 09/08/2024 11:19 AM EDShashank Holley Trouble concentrating on thi ngs, such as [...] Not difficult at all 09/08/2024 11:19 AM JANET Joni Burrows y * Question Answer Date of Assessment Author 1. Wish to be (Past 1 Month) No 025 8:23 PM EDT Sandra Cunha, EVITA 2. Non-Specific Active Suici dillon Thoughts (Past 1 Month) No 09/09/2024 8:23 PM EDT Dwayne Cunha, RN 6. Suicidal Behavior (Lifetime) No 8:23 PM EDT Sandra Cunha, EVITA documented as of this encounter Miscellaneous [...] needing a heart cath. Best contact number: [phone] Optimal time of day to reach caller: [...] Description 10/25/2024 10:00 AM EDT Office Visit [facility] Nephrology, Bone & Mineral Metabolism [address] [facility], [address] [place] [address] Bryon Brandon MD [address] [place] [address] 10/27/2024 1:40 PM EDT Office Visit [facility] Endocrinology [address] [place] [phone] Anne-Marie Kolb L, FLAP CURER [address] [place] [address] 12/23/2024 4:00 PM EDT Office Visit [facility] Medicine Specialties [address], 2nd [place] [address] Lavern Shoemaker MD 800 [place] [address] 02/02/2025 8:40 AM EST Office Visit [facility] Internal Medicine [address], 3rd [place] [address] Alisa Kunz DO [address] [facility] [address] [place] [address] documented as of this encounter [...] documented as of this encounter Care Teams Recovery Engineer Relationship Specialty Start Date End Date Alisa Kunz DO [address] [place] [address] PCP - General Internal Medicine 03/13/21 Kodi Bustos DO [address] [phone] Surgeon Cardiothoracic Surgery 11/06/22 Sujit Arriola MD [address] [place] [address] Consulting Physician Pulmonary Disease 11/06/22 Sujit Reyes MD [address] [facility] [address] [place] [address] Referring Physician 12/04/22 Zully Caldwell LPN VALUE-BASED [place] [address] TCM Nurse 07/16/24 08/15/24 Ekaterina Gómez Correspondence Review Clerk Metal Casket Maker 08/16/24 08/16/24 Patricia Yañez LPN [facility] TCM Nurse 08/25/24 10/17/24 Zee Lazar DO [address] [place] [address] Resident 09/08/24 documented as of this encounter
--- OUTSIDE RECORDS SUMMARY | 2024-10-18 14:54 | XMS_ITS | Encounter Summary ---
Author Organization [facility] Address [address] [place] [address] Care Team Providers Care Clerk Carrier Name Role Phone Alisa Kunz Primary Care Provider [phone] Reason for Visit * Reason Comments Med Refill Encounter Details Date Type Department Care Team (Late st Contact Info) Description 10/14/2023 Refill [facility] CARDIOLOGY [address] [place] [address] Sujit Reyes MD [address] [facility] [address] [place] [address] Med Refill Social History Tobacco Use Types [...] Description 10/21/2024 2:15 PM EDT Office Visit [facility] SLEEP MEDICINE [address] [place] [address] Shannen Horta APRN [address] [facility] [facility] [address] [place] [address] 12/02/2024 3:30 PM EDT Office Visit [facility] CARDIOLOGY [address] [place] [address] Sujit Reyes MD [address] [facility] [address] [place], [place] [id number] 01/19/2025 1:45 PM EST Office Visit [facility] CARDIOLOGY [address] [facility] [address] [place] [address] Naveen Velasquez MD [address] [facility] [address] [place] [address] documented as of this encounter Visit Diagnoses Not on filedocumented in this encounter Care Teams Clerk Carrier Relationship Specialty Start Date End Date Alisa Kunz DO [address] [place], [place] [phone] PCP - General Internal Medicine 04/26/21 documented as of this encounter
--- OUTSIDE RECORDS SUMMARY | 2024-10-18 14:54 | XMS_ITS | Encounter Summary ---
Author Organization Healthcare Address [address] [place] [address] Care Team Providers Care Advisory Services Associate Name Role Phone Alisa Kunz DO Primary Care Provider [phone] Kodi Bustos DO Unavailable [phone] Sujit Arriola MD Unavailable [phone] Sujit Reyes MD Unavailable [phone] Encounter Details Date Type Department Care [...] often do you attend chur ch or confucianism services? 1 to 4 times [...] Recorded Patient Health Questionnaire-2 Score 0 08/04/2024 [facility] of Occupat ional [...] time in the past 12 m [facility], were you homeless or living in [...] time in the past 12 m [facility], were you homeless or living in a longterm (including now)? No 08/15/2024 CAGE ASSESSMENT Answer [...] drink first t anselmo in the morning (EYE-LACQUER COATER) to steady your nerves or to get rid of a hangover? 0 08/14/2024 CAGE Questionnaire Score 0 025 Utilities Answer Date Recorded In the past 12 months has th e [employer], gas, oil, or water [employer] threatened to shut off services in your [...] Description 10/25/2024 10:00 AM EDT Office Visit [facility] Nephrology, Bone & Mineral Metabolism [address] [facility], [address] [place] [address] Bryon Brandon MD 800 [place] [address] 10/27/2024 1:40 PM EDT Office Visit [facility] Endocrinology [address] [place] [phone] Cortes Anne-Marie L, HOME HEALTH CARE PHYSICIAN [address] [facility] [address] [place] [address] 12/23/2024 4:00 PM EDT Office Visit [facility] Medicine Specialties [address], 2nd [place] [address] Lavern Shoemaker MD [address] [place], [place] [phone] 02/02/2025 8:40 AM EST Office Visit [facility] Internal Medicine [address], 3rd [place] [address] Alisa Kunz DO [address] [facility] [address] [place] [address] documented as of this encounter [...] documented as of this encounter Care Teams Advisory Services Associate Relationship Specialty Start Date End Date Alisa Kunz DO [address] [place] [address] PCP - General Internal Medicine 03/13/21 Kodi Bustos DO [address] [address] Surgeon Cardiothoracic Surgery 11/06/22 Sujit Arriola MD [address] [place] [address] Consulting Physician Pulmonary Disease 11/06/22 Sujit Reyes MD [address] [address] Referring Physician 12/04/22 documented as of this encounter
--- OUTSIDE RECORDS SUMMARY | 2024-10-18 14:54 | XMS_ITS | Encounter Summary ---
Author Organization Healthcare Address [address] [place] [address] Care Team Providers Care Parcel Wrapper Name Role Phone Alisa Kunz DO Primary Care Provider [phone] Kodi Bustos DO Unavailable [phone] Sujit Arriola MD Unavailable [phone] Sujit Reyes MD Unavailable [phone] Encounter Details Date Type Department Care [...] any clubs o r organizations such as cheondoism groups, unions, fraternal or athletic groups, or [...] Recorded Patient Health Questionnaire-2 Score 0 08/04/2024 [facility] of Occupat ional Health - [...] in the past 12 m [facility], were you homeless or living in a [...] in the past 12 m [facility], were you homeless or living in a assisted (including now)? No 08/15/2024 CAGE ASSESSMENT Answer [...] drink first t anselmo in the morning (EYE-EQUAL OPPORTUNITY OFFICER) to steady your nerves or to get rid of a hangover? 0 08/14/2024 CAGE Questionnaire Score 0 025 Utilities Answer Date Recorded In the past 12 months has th e [employer], gas, oil, or water [employer] threatened to shut off services in your [...] 10/25/2024 10:00 AM EDT Office Visit [facility] Nephrology, Bone & Mineral Metabolism [address] [facility], [address] [place] [address] Bryon Brandon MD [address] [place] [address] 10/27/2024 1:40 PM EDT Office Visit [facility] Endocrinology [address] [place] [address] Anne-Marie Kolb, METAL WIRE COATING OPERATOR [address] [place] [address] 12/23/2024 4:00 PM EDT Office Visit [facility] Medicine Specialties [address], 2nd [place] [address] Lavern Shoemaker MD [address] [place] [address] 02/02/2025 8:40 AM EST Office Visit [facility] Internal Medicine [address], 3rd [place] [address] Alisa Kunz DO [address] [place] [address] documented as of this encounter [...] documented as of this encounter Care Teams Parcel Wrapper Relationship Specialty Start Date End Date Alisa Kunz DO [address] [place] [address] PCP - General Internal Medicine 03/13/21 Kodi Bustos DO [address] [place] [address] Surgeon Cardiothoracic Surgery 11/06/22 Sujit Arriola MD [address] [place] [address] Consulting Physician Pulmonary Disease 11/06/22 Sujit Reyes MD [address] [place] [address] Referring Physician 12/04/22 documented as of this encounter
--- OUTSIDE RECORDS SUMMARY | 2024-10-18 14:54 | XMS_ITS | Encounter Summary ---
Author Organization [facility] Address [address] [place] [address] Care Team Providers Care Writing Tutor Name Role Phone Alisa Kunz DO Primary Care Provider [phone] Laura Albright BICYCLE REPAIRER Unavailable Unavailable Balwinder Vale Unavailable Unavailable Kodi Bustos DO Unavailable [phone] Sujit Arriola MD Unavailable [phone] HatLaura navas LPN Unavailable Unavailable Sujit Reyes MD Unavailable [phone] Zully Caldwell BICYCLE REPAIRER Unavailable Unavailable HatLaura navas BICYCLE REPAIRER Unavailable Unavailable HatLaura navas BICYCLE REPAIRER Unavailable Unavailable Tanya Powell Unavailable [phone] Sarah Reyes BICYCLE REPAIRER Unavailable Unavailable Ekaterina Gómez Unavailable Unavailable Zully Caldwell BICYCLE REPAIRER Unavailable Unavailable Ekaterina Gómez Unavailable Unavailable Patricia Yañez BICYCLE REPAIRER Unavailable Unavailab Zee Lr DO Unavailable [phone] Reason for Visit * Reason Comments Med Refill Encounter Details Date Type Department Care Team (Late st Contact Info) Description 03/18/2022 Refill [facility] Internal Medicine [address], 3rd [place] [address] Alisa Kunz DO [address] [place] [address] Social History Tobacco Use Types [...] E [facility], [address] [place] [address] Bryon Brandon MD 800 [place] [address] 10/27/2024 1:40 PM EDT Office Visit [facility] Endocrinology [address] [place] [address] Anne-Marie Kolb, ASSISTANT MERCHANDISER [address] [place] [address] 12/23/2024 4:00 PM EDT Office Visit [facility] Medicine Specialties [address], 2nd [place] [address] Laevrn Shoemaker MD [address] [place], [place] [phone] 02/02/2025 8:40 AM EST Office Visit [facility] Internal Medicine [address], 3rd [place] [address] Alisa Kunz, DO [address] [place] [address] documented as of this encounter [...] 6:[address] Haemophilus influenza 01/27/2023 01/27/202307/29/ 2024 5:06 PM EDT COVID-19 Rule-Out 07/24/2023 07/24/2023 [...] documented as of this encounter Care Teams Writing Tutor Relationship Specialty Start Date End Date Alisa Kunz DO [address] [place] [address] PCP - General Internal Medicine 03/13/21 Laura Albright LPN VALUE-BASED [place] [address] TCM Nurse 08/30/22 09/27/22 Balwinder Vale [address] [address] Community Health Worker Associate Software Application Engineer 08/30/22 09/06/22 Kodi Bustos DO [address] [address] Surgeon Cardiothoracic Surgery 11/06/22 Sujit Arriola MD [address] [place] [address] Consulting Physician Pulmonary Disease 11/06/22 Laura Albright LPN VALUE-BASED [place] [address] TCM Nurse 12/02/22 01/01/23 Sujit Reyes MD [address] [place] [address] Referring Physician 12/04/22 Zully Caldwell LPN VALUE-BASED [place] [address] TCM Nurse 02/03/23 03/05/23 Laura Albright LPN VALUE-BASED [place] [address] TCM Nurse 08/05/23 09/04/23 Laura Albright LPN VALUE-BASED [place] [address] TCM Nurse 02/17/24 03/18/24 Tanya Powell [address] [facility] [address] [place] [address] Registered Nurse 04/02/24 07/01/24 Sarah Reyes LPN TCM Nurse 05/27/24 06/26/24 Ekaterina Gómez Hydrographic Engineer Associate Software Application Engineer 07/14/24 07/14/24 Zully Caldwell LPN VALUE-BASED [place] [address] TCM Nurse 07/16/24 08/15/24 Ekaterina Gómez Hydrographic Engineer Associate Software Application Engineer 08/16/24 08/16/24 Patricia Yañez LPN [facility] TCM Nurse 08/25/24 10/17/24 Zee Lazar DO [address] [place] [address] Resident 09/08/24 documented as of this encounter
--- OUTSIDE RECORDS SUMMARY | 2024-10-18 14:55 | XMS_ITS | Encounter Summary ---
Author Organization [facility] Address [address] [place] [address] Care Team Providers Care Stone Circular Sawyer Name Role Phone Alisa Kunz DO Primary Care Provider [phone] Kodi Bustos DO Unavailable [phone] Sujit Arriola MD Unavailable [phone] Sujit Reyes MD Unavailable [phone] Patricia Yañez LPN Unavailable Unavailab le Reason for Visit * Reason Onset Date Comments HCN Clinical Concern/Question 08/25/2024 Encounter Details Date Type Department Care Team (Late st Contact Info) Description 08/25/2024 Telephone [facility] Internal Medicine [address], 3rd [place] [address] Alisa Kunz DO [address] [place] [address] HCN Clinical Concern/Question Social History [...] in a nursing home (including now)? No 08/25/2024 CAGE ASSESSMENT [...] drink first t anselmo in the morning (EYE-COMPRESSED GASES TESTER) to steady your nerves or to get rid of a hangover? 0 08/14/2024 CAGE Questionnaire Score 0 025 Utilities Answer Date Recorded In the past 12 months has th [employer], [employer], oil, or water [employer] threatened to shut off services in your [...] pt for more information. Best contact number: [phone] (mobile) Optimal time of day to reach caller: ANYTIME Additional comments/information from caller: None Note: Please do not reply to this message. Follow-up communication and further actions as a result of this message need to be communicated with the patient directly, if the patient is not active onMyChart. If the patient is active on MyChart, they will receive notification of the communication/outcome via [employer]. documented in this encounter Plan of Treatment Upcoming Encounters Date Type Department Care Team (Late st Contact Info) Description 10/25/2024 10:00 AM EDT Office Visit [facility] Nephrology, Bone & Mineral Metabolism [address] [facility], [address] [place] [address] Bryon Brandon MD 800 [place] [address] 10/27/2024 1:40 PM EDT Office Visit [facility] Endocrinology [address] [place] [address] Anne-Marie Kolb, CASE MAKING MACHINE OPERATOR [address] [place] [address] 12/23/2024 4:00 PM EDT Office Visit [facility] Medicine Specialties [address], [address]nd [place] [address] Lavern Shoemaker MD 800 [place] [address] 02/02/2025 8:40 AM EST Office Visit [facility] Internal Medicine [address], 3rd [place] [address] Alisa Kunz DO [address] [address] documented as of this encounter [...] documented as of this encounter Care Teams Stone Circular Sawyer Relationship Specialty Start Date End Date Alisa Kunz DO [address] [address] PCP - General Internal Medicine 03/13/21 Kodi Bustos DO [address] [place] [address] Surgeon Cardiothoracic Surgery 11/06/22 Sujit Arriola MD [address] [place] [address] Consulting Physician Pulmonary Disease 11/06/22 Sujit Reyes MD [address] [place] [address] Referring Physician 12/04/22 Patricia Yañez LPN [facility] TCM Nurse 08/25/24 10/17/24 documented as of this encounter
--- OUTSIDE RECORDS SUMMARY | 2024-10-18 14:55 | XMS_ITS | Encounter Summary ---
Author Organization [facility] Address [address] [place] [address] Care Team Providers Care Insurance Marketing Specialist Name Role Phone Alisa Kunz DO Primary Care Provider [phone] Kodi Bustos DO Unavailable [phone] Sujit Arriola MD Unavailable [phone] Sujit Reyes MD Unavailable [phone] Patricia Yañez LPN Unavailable Unavailab Zee Lr DO Unavailable [phone] Reason for Visit * Reason Comments TCM Call Encounter Details Date Type Department Care Team (Late st Contact Info) Description 08/25/2024 Patient Outreach [facility] [address] [facility], [address] [place] [address] Patricia Yañez LPN [facility] TCM Call Social History [...] Questionnaire-2 Score 0 09/08/2024 [facility] - Occupational [...] drink first t anselmo in the morning (EYE-EXPORT DOCUMENTS CLERK) to steady your nerves or to [...] Date: 08/14/2024 Discharge Date: 08/24/2024 Hospital Service: [facility] Discharge Diagnosis: Acute on chronic hypoxic respiratory [...] Description 10/25/2024 10:00 AM EDT Office [facility] Nephrology, Bone & Mineral Metabolism [address] [facility] [address], [address] [place] [address] Bryon Brandon MD 800 [place] [address] 10/27/2024 1:40 PM EDT Office Visit [facility] Endocrinology [facility] [place] [address] Anne-Marie Kolb, LINE PALLETIZER [address] [place] [address] 12/23/2024 4:00 PM EDT Office Visit [facility] Medicine Specialties [address], 2nd [place] [address] Lavern Shoemaker MD [address] [place] [address] 02/02/2025 8:40 AM EST Office Visit [facility] Internal Medicine [address], 3rd [place] [address] Alisa Kunz DO [address] [facility] [address] [place] [address] documented as of this encounter [...] documented as of this encounter Care Teams Insurance Marketing Specialist Relationship Specialty Start Date End Date Alisa Kunz DO [address] [place] [address] PCP - General Internal Medicine 03/13/21 Kodi Bustos DO [address] [place] [phone] Surgeon Cardiothoracic Surgery 11/06/22 Sujit Arriola MD [address] [place] [address] Consulting Physician Pulmonary Disease 11/06/22 Sujit Reyes MD [address] [place] [address] Referring Physician 12/04/22 Patricia Yañez LPN [facility] TCM Nurse 08/25/24 10/17/24 Zee Lazar DO [address] [place] [address] [id number] Resident 09/08/24 documented as of this encounter
--- OUTSIDE RECORDS SUMMARY | 2024-10-18 14:55 | XMS_ITS | Encounter Summary ---
Author Organization [facility] Address [address] [place] [address] Care Team Providers Care Baby Formula Worker Name Role Phone Alisa Kunz Torri DO Primary Care Provider [phone] Kodi Bustos DO Unavailable [phone] Sujit Arriola MD Unavailable [phone] Sujit Reyes MD Unavailable [phone] Patricia Yañez LPN Unavailable Unavailab le Encounter Details Date Type Department Care Team (Late st Contact Info) Description 08/27/2024 Telephone [facility] Medicine Specialties [address], 2nd [place] [phone] Sarah Hernadez RN CH-VASCULAR & INTERVENTIONAL RADIOLOGY [...] How often do you attend formerly [facility] or bahai services? 1 to 4 times [...] Recorded Patient Health Questionnaire-2 Score 0 08/04/2024 [facility] - Occupational [...] living in a fci (including now)? No 08/25/2024 CAGE ASSESSMENT Answer [...] drink first t anselmo in the morning (EYE-BAND TACKER) to steady your nerves or to get [...] 10/25/2024 10:00 AM EDT Office Visit [facility] Nephrology, Bone & Mineral Metabolism [address] [facility], [address] [place] [address] Bryon Brandon MD [address] [place] [phone] 10/27/2024 1:40 PM EDT Office Visit [facility] [address] [place] [address] Anne-Marie Kolb, SWAGE TOOLSETTER [address] [address] 12/23/2024 4:00 PM EDT Office Visit [facility] Medicine Specialties [address], 2nd [place] [address] Lavern Shoemaker MD [address] [place] [address] 02/02/2025 8:40 AM EST Office Visit [facility] Internal Medicine [address], 3rd [place] [address] Alisa Kunz DO [address] [place] [address] documented as of this encounter [...] documented as of this encounter Care Teams Baby Formula Worker Relationship Specialty Start Date End Date Alisa Kunz DO [address] [place] [address] PCP - General Internal Medicine 03/13/21 Kodi Bustos DO [address] [place] [address] Surgeon Cardiothoracic Surgery 11/06/22 Sujit Arriola MD [address] [place] [address] Consulting Physician Pulmonary Disease 11/06/22 Sujit Reyes MD [address] [place] [address] Referring Physician 12/04/22 Patricia Yañez LPN [facility] TCM Nurse 08/25/24 10/17/24 documented as of this encounter
--- OUTSIDE RECORDS SUMMARY | 2024-10-18 14:55 | XMS_ITS | Encounter Summary ---
Author Organization [facility] Address [address] [place] [address] Care Team Providers Care Dried Fruit Washer Name Role Phone Alisa Kunz DO Primary Care Provider [phone] Kodi Bustos DO Unavailable [phone] Sujit Arriola MD Unavailable [phone] Sujit Reyes MD Unavailable [phone] Patricia Yañez LPN Unavailable Unavailab le Encounter Details Date Type Department Care Team (Late st Contact Info) Description 08/27/2024 Telephone [facility] Endocrinology [address] [place] [phone] Katerine Donaldson Social History Tobacco Use Types [...] How often do you attend chur or orthodoxy services? 1 to 4 times [...] No 08/25/2024 Housing Stability Vital Sign Answer Hogn e [...] drink first t anselmo in the morning (EYE-NUISANCE WILDLIFE TRAPPER) to steady your nerves or to get rid of a hangover? 0 08/14/2024 CAGE Questionnaire Score 0 025 Utilities Answer Date Recorded In the past 12 months has th [employer], gas, oil, or water company threatened to [...] Description 10/25/2024 10:00 AM EDT Office Visit [facility] Nephrology, Bone & Mineral Metabolism [address] [facility], [address] [place] [address] Bryon Brandon MD 800 [place] [address] 10/27/2024 1:40 PM EDT Office Visit [facility] Endocrinology [address] [place] [address] Anne-Marie Kolb, PROGRAM COUNSELOR [address] [facility] [address] [place] [address] 12/23/2024 4:00 PM EDT [facility] Medicine Specialties [address], 2nd [place] [address] Lavern Shoemaker MD [address] [place], [place] [id number] 02/02/2025 8:40 AM EST Office Visit [facility] Internal Medicine [address], 3rd [place] [address] Alisa Kunz DO [address] [place] [address] documented as of this encounter [...] documented as of this encounter Care Teams Dried Fruit Washer Relationship Specialty Start Date End Date Alisa Kunz DO [address] [place] [address] PCP - General Internal Medicine 03/13/21 Kodi Bustos DO [address] [place] [address] Surgeon Cardiothoracic Surgery 11/06/22 Sujit Arriola MD [address] [place] [address] Consulting Physician Pulmonary Disease 11/06/22 Sujit Reyes MD [address] [place] [address] Referring Physician 12/04/22 Patricia Yañez LPN [facility] TCM Nurse 08/25/24 10/17/24 documented as of this encounter
--- OUTSIDE RECORDS SUMMARY | 2024-10-18 14:55 | XMS_ITS | Encounter Summary ---
Author Organization Healthcare Address [address] [place] [address] Care Team Providers Care Event Mgr Name Role Phone Alisa Kunz DO Primary Care Provider Kodi Bustos DO Unavailable [phone] Sujit Arriola MD Unavailable [phone] Sujit Reyes MD Unavailable [phone] Patricia Yañez LPN Unavailable Unavailab le Encounter Details Date Type Department Care Team (Late st Contact Info) Description 08/25/2024 Telephone [facility] Medicine Specialties [address], 2nd [place] [address] Noris Yee MD [address] [place] [address] Social History Tobacco Use Types [...] Recorded Patient Health Questionnaire-2 Score 0 08/04/2024 [facility] - [...] drink first t anselmo in the morning (EYE-COKE DRAWER) to steady your nerves or to get rid of a hangover? 0 08/14/2024 CAGE Questionnaire Score 0 025 Utilities Answer Date Recorded In the past 12 months has th [employer], gas, oil, or water [employer] threatened to shut off services in your [...] 30day supply with 5 refills to [facility] pharmacy. * Progress Notes - Kayla Ceja PharmD - 08/25/2024 12:23 PM EDT Refill request does not meet protocol. Sending to clinic for review. Additional info: Dosing clarification needed documented in this encounter Plan of Treatment Upcoming Encounters Date Type Department Care Team (Late st Contact Info) Description 10/25/2024 10:00 AM EDT Office Visit [facility] Nephrology, Bone & Mineral Metabolism [address], [address] [place] [address] Bryon Brandon MD [address] [place] [address] 10/27/2024 1:40 PM EDT Office Visit [facility] Endocrinology [address] [place] [address] Anne-Marie Kolb, BI SOLUTIONS ARCHITECT [address] [facility] [address] [place] [address] 12/23/2024 4:00 PM EDT Office Visit [facility] Medicine Specialties [address], 2nd [place] [address] Lavern Shoemaker MD [address] [place], [place] [id number] 02/02/2025 8:40 AM EST Office Visit [facility] Internal Medicine [address], 3rd [place] [address] Alisa Kunz DO [address] [facility] [address] [place] [address] documented as of this encounter Visit Diagnoses Diagnosis Systemic lupus erythematosus (SLE) in adult (CMS/[facility])- Primary documented in this encounter Additional Health Concerns Assessment Noted Time PHQ-9 Depression Total Score: 8 07/22/19 25 9:23 AM EDT A fall risk assessment has been complete d for the patient 08/04/2024 10:41 AM EDT A Body Mass Index follow-up plan has been documented for the patient 08/24/2024 2:26 PM EDT documented as of this encounter Care Teams Event Mgr Relationship Specialty Start Date End Date Alisa Kunz DO [address] [place] [address] PCP - General Internal Medicine 03/13/21 Kodi Bustos DO [address] [address] Surgeon Cardiothoracic Surgery 11/06/22 Sujit Arriola MD [address] [place] [address] Consulting Physician Pulmonary Disease 11/06/22 Sujit Reyes MD [address] [place] [address] Referring Physician 12/04/22 Patricia Yañez LPN [facility] TCM Nurse 08/25/24 10/17/24 documented as of this encounter
--- OUTSIDE RECORDS SUMMARY | 2024-10-18 14:55 | XMS_ITS | Encounter Summary ---
Author Organization Healthcare Address [address] [place] [address] Care Team Providers Care Director Of Strategic Communications Name Role Phone Alisa Kunz DO Primary Care Provider [phone] Kodi Bustos DO Unavailable [phone] Sujit Arriola MD Unavailable [phone] Sujit Reyes MD Unavailable [phone] Patricia Yañez LPN Unavailable Unavailab le Reason for Visit * Reason Onset Date Comments Med Refill 08/27/2024 Encounter Details Date Type Department Care Team (Late st Contact Info) Description 08/27/2024 Refill [facility] Medicine Specialties [address], [address] [place] [phone] Ruthie Moy MD [address] [place] [address] Systemic lupus erythematosus (SLE) in adult (CMS/[facility]) Social History Tobacco Use Types Packs/Day [...] Recorded Patient Health Questionnaire-2 Score 0 08/04/2024 [facility] Occupat ional Health - Occupational [...] drink first t anselmo in the morning (EYE-CORROSION CONTROL SPECIALIST) to steady your nerves or to get rid of a hangover? 0 08/14/2024 CAGE Questionnaire Score 0 025 Utilities Answer Date Recorded In the past 12 months has e [employer], gas, oil, or water company threatened to [...] Description 10/25/2024 10:00 AM EDT Office Visit [facility] Nephrology, Bone & Mineral Metabolism [address] [facility], [address] [place] [address] Bryon Brandon MD [address] [place] [address] 10/27/2024 1:40 PM EDT Office Visit [facility] Endocrinology [address] [place] [phone] Anne-Marie Kolb L, ROOFER [address] [facility] [address] [place] [address] 12/23/2024 4:00 PM EDT Office Visit [facility] Medicine Specialties [address], [address] [place] [address] Lavern Shoemaker MD [address] [place], [place] [id number] 02/02/2025 8:40 AM EST Office Visit [facility] Internal Medicine [address], 3rd [place] [address] Alisa Kunz DO [address] [facility] [address] [place] [address] documented as of this encounter Visit Diagnoses Diagnosis Systemic lupus erythematosus (SLE) in adult (CMS/[facility]) documented in this encounter Additional Health Concerns Assessment Noted Time PHQ-9 Depression Total Score: 8 07/22/19 25 9:23 AM EDT A fall risk assessment has been complete d for the patient 08/04/2024 10:41 AM EDT A Body Mass Index follow-up plan has been documented for the patient 08/24/2024 2:26 PM EDT documented as of this encounter Care Teams Director Of Strategic Communications Relationship Specialty Start Date End Date Alisa Kunz DO [address] [facility] [address] [place] [address] PCP - General Internal Medicine 03/13/21 Kodi Bustos, DO [address] [address] Surgeon Cardiothoracic Surgery 11/06/22 Sujit Arriola MD [address] [place] [address] Consulting Physician Pulmonary Disease 11/06/22 Sujit Reyes MD [address] [place] [address] Referring Physician 12/04/22 Patricia Yañez LPN [facility] TCM Nurse 08/25/24 10/17/24 documented as of this encounter
--- OUTSIDE RECORDS SUMMARY | 2024-10-18 14:55 | XMS_ITS | Encounter Summary ---
Author Organization [facility] Address [address] [place] [address] Care Team Providers Care Retort Pre Cooker Name Role Phone Alisa Kunz DO Primary Care Provider Kodi Bustos DO Unavailable [phone] Sujit Arriola MD Unavailable [phone] Sujit Reyes MD Unavailable [phone] Patricia Yañez LPN Unavailable Unavailab Zee Lr DO Unavailable [phone] Reason for Visit * Reason Onset Date Comments HCN Clinical Concern/Question 08/30/2024 Encounter Details Date Type Department Care Team (Late st Contact Info) Description 08/30/2024 Telephone [facility] Internal Medicine [address], 3rd [place] [address] Alisa Kunz DO [address] [place] [address] HCN Clinical Concern/Question Social History [...] Recorded Patient Health Questionnaire-2 Score 0 09/08/2024 [facility] - Occupational Stress Questionnaire [...] in the past 12 m [facility], were you homeless or living in a [...] in the past 12 m [facility], were you homeless or living in a [...] drink first t anselmo in the morning (EYE-WHISTLE PUNK) to steady your nerves or to get rid of a hangover? 0 08/14/2024 CAGE Questionnaire Score 0 025 Utilities Answer Date Recorded In the past 12 months has th e [employer], gas, oil, or water [employer] threatened to shut off services in your [...] Please call to advise Best contact number: [phone] (mobile) Optimal time of day to reach [...] 10/25/2024 10:00 AM EDT Office Visit [facility] Nephrology, Bone & Mineral Metabolism [address] [facility], [address] [place] [address] Bryon Brandon MD [address] [place] [address] 10/27/2024 1:40 PM EDT Office Visit [facility] Endocrinology [address] [place] [address] Anne-Marie Kolb L, WHIZZER OPERATOR [address] [facility] [address] [place] [address] 12/23/2024 4:00 PM EDT Office Visit [facility] Medicine Specialties [address], [address]nd [place] [address] Lavern Shoemaker MD [address] [place], [place] [id number] 02/02/2025 8:40 AM EST Office Visit [facility] Internal Medicine [address], 3rd [place] [address] Alisa Kunz, DO [address] [place] [address] documented as of this encounter [...] documented as of this encounter Care Teams Retort Pre Cooker Relationship Specialty Start Date End Date Alisa Kunz DO [address] [place] [address] PCP - General Internal Medicine 03/13/21 Kodi Bustos DO [address] [address] Surgeon Cardiothoracic Surgery 11/06/22 Sujit Arriola MD [address] [place] [address] Consulting Physician Pulmonary Disease 11/06/22 Sujit Reyes MD [address] [place] [address] Referring Physician 12/04/22 Patricia Yañez LPN [facility] TCM Nurse 08/25/24 10/17/24 Zee Lazar DO [address] [place], [place] [phone] Resident 09/08/24 documented as of this encounter
--- OUTSIDE RECORDS SUMMARY | 2024-10-18 14:55 | XMS_ITS | Encounter Summary ---
Author Organization Healthcare Address [address] [place] [address] Care Team Providers Care City Editor Name Role Phone Alisa Kunz DO Primary Care Provider [phone] Kodi Bustos DO Unavailable [phone] Sujit Arriola MD Unavailable [phone] Sujit Reyes MD Unavailable [phone] Patricia Yañez LPN Unavailable Unavailab le Reason for Visit * Reason Comments Med Refill Encounter Details Date Type Department Care Team (Late st Contact Info) Description 08/25/2024 Refill [facility] Medicine Specialties [address] [place] [address] Noris Yee MD [address] [place] [address] Systemic lupus erythematosus (SLE) in [...] Recorded Patient Health Questionnaire-2 Score 0 08/04/2024 [facility] Occupat ional Health [...] any time in the past 12 m [facility], were you homeless or [...] any time in the past 12 m [facility], were you homeless or living in a care home (including now)? No 08/25/2024 CAGE ASSESSMENT [...] drink first t anselmo in the morning (EYE-EXTENDED INSURANCE CLERK) to steady your nerves or to get rid of a hangover? 0 08/14/2024 CAGE Questionnaire Score 0 025 Utilities Answer Date Recorded In the past 12 months has th e [employer], gas, oil, or water [employer] threatened to shut off services in [...] 10/25/2024 10:00 AM EDT Office Visit [facility] [employer] [facility] [place] Nephrology, Bone & Mineral Metabolism [address] [facility], [address] [place] [address] Bryon Brandon MD [address] [place] [address] 10/27/2024 1:40 PM EDT Office Visit [facility] Endocrinology [address] [place] [address] Anne-Marie Kolb, SOCIAL SCIENCES INSTRUCTOR [address] [facility] 125 [place] [address] 12/23/2024 4:00 PM EDT Office Visit [facility] Medicine Specialties [address], [address] [place] [address] Lavern Shoemaker MD [address] [place] [id number] 02/02/2025 8:40 AM EST Office Visit [facility] Internal Medicine [address], 3rd [place] [address] Alisa Kunz DO [address] [place] [address] documented as of this encounter Visit Diagnoses Diagnosis Systemic lupus erythematosus (SLE) in adult (CMS/[facility]) documented in this encounter Additional Health Concerns Assessment Noted Time PHQ-9 Depression Total Score: 8 07/22/19 25 9:23 AM EDT A fall risk assessment has been complete d for the patient 08/04/2024 10:41 AM EDT A Body Mass Index follow-up plan has been documented for the patient 08/24/2024 2:26 PM EDT documented as of this encounter Care Teams City Editor Relationship Specialty Start Date End Date Alisa Kunz DO [address] [place] [address] PCP - General Internal Medicine 03/13/21 Kodi Bustos DO [address] [address] Surgeon Cardiothoracic Surgery 11/06/22 Sujit Arriola MD [address] [place] [address] Consulting Physician Pulmonary Disease 11/06/22 Sujit Reyes MD [address] [address] Referring Physician 12/04/22 Patricia Yañez LPN [facility] TCM Nurse 08/25/24 10/17/24 documented as of this encounter
--- OUTSIDE RECORDS SUMMARY | 2024-10-18 14:56 | XMS_ITS | Encounter Summary ---
Author Organization Healthcare Address [address] [place] [address] Care Team Providers Care Broommaker Name Role Phone Alisa Kunz DO Primary Care Provider Kodi Bustos DO Unavailable [phone] Sujit Arriola MD Unavailable [phone] Sujit Reyes MD Unavailable [phone] Ekaterina Gómez Unavailable Unavailable Zully Caldwell LPN Unavailable Unavailable Ekaterina Gómez Unavailable Unavailable Patricia Yañez LPN Unavailable Unavailab le Encounter Details Date Type Department Care Team (Late st Contact Info) Description 07/08/2024 Results Follow-Up [facility] Medicine Specialties [address] [place] [address] Lavern Shoemaker MD [address] [id number] Social History Tobacco Use Types Packs/Day Years [...] often do you attend chur ch or catholic services? 1 to 4 times per [...] Patient Health Questionnaire-2 Score 0 09/08/2024 [facility] [...] living in a usp (including now)? No 08/25/2024 CAGE ASSESSMENT Answer [...] drink first t anselmo in the morning (EYE-[employer]PER) to steady your nerves or to get rid of a hangover? 0 08/14/2024 CAGE Questionnaire Score 0 025 Utilities Answer Date Recorded In the past 12 months has e [employer], gas, oil, or water new test company threatened to shut off services in [...] at all 08/04/2024 10:41 AM Liu Jimenez le * Question Answer Date of Assessment Author [...] Description 10/25/2024 10:00 AM EDT Office Visit [facility] Nephrology, Bone & Mineral Metabolism [address], [address] [place] [address] Bryon Brandon MD [address] [place] [address] 10/27/2024 1:40 PM EDT Office Visit [facility] Endocrinology [address] [place] [id number] Anne-Marie Kolb L, INCLUSION INTERN [address] [facility] [address] [place] [address] 12/23/2024 4:00 PM EDT Office Visit [facility] Medicine Specialties [address] [place] [address] Lavern Shoemaker MD [address] [place], [place] [id number] 02/02/2025 8:40 AM EST Office Visit [facility] Internal Medicine [address] [place] [address] Alisa Kunz DO [address] [facility] [address] [place] [address] documented as of this encounter [...] documented as of this encounter Care Teams Broommaker Relationship Specialty Start Date End Date Alisa Kunz DO [address] [place] [address] PCP - General Internal Medicine 03/13/21 Kodi Bustos DO [address] [address] Surgeon Cardiothoracic Surgery 11/06/22 Sujit Arriola MD [address] [place] [address] Consulting Physician Pulmonary Disease 11/06/22 Sujit Reyes MD [address] [place] [address] Referring Physician 12/04/22 Ekaterina Gómez Community Mental Health Worker [employer] 07/14/24 07/14/24 Zully Caldwell LPN [employer] [place] [address] TCM Nurse 07/16/24 08/15/24 Ekaterina Gómez Community Mental Health Worker [employer] 08/16/24 08/16/24 Patricia Yañez LPN [facility] TCM Nurse 08/25/24 10/17/24 documented as of this encounter
--- OUTSIDE RECORDS SUMMARY | 2024-10-18 14:56 | XMS_ITS | Clinical Summary ---
Author Organization [facility] Address [address] [place] [address] Care Team Providers Care Senior Communications Specialist Name Role Phone Alisa Kunz DO Primary Care Provider Kodi Bustos DO Unavailable [phone] Sujit Arriola MD Unavailable [phone] Sujit Reyes MD Unavailable [phone] Zee Lazar DO Unavailable [phone] Allergies Active Allergy Reactions Criticality Noted Date [...] total 90 capsule 3 025 2025 Active acetaminophen (Tylenol) 500 MG tablet Take [...] penIndications:T ype 1 diabetes mellitus with hyperglycemia ([facility]) Inject 2-6 units before meals plus 1:60>150. Max tdd 30 units 30 mL 2 Active insulin glargine (Toujeo SoloStar) 300 UNIT/ML injection pen (1 UNIT DIAL)Indications :Type 1 diabetes mellitus with hyperglycemia ([facility]) Inject 14 Units under the skin every morning. 4.5 mL 3 025 2025 Active Probiotic Product (acidophilus probiotic blend) capsule Take 1 capsule by mouth daily. Active mycophenolate (CellCept) 500 MG tabletIndication s:Systemic lupus erythematosus (SLE) in adult ([facility]) Take 2 tablets by mouth 2 times a day. 360 tablet 1 Active Pitavastatin Calcium (Livalo) 4 MG tabletIndication s:Type 1 diabetes mellitus with other specified complication ([facility]),Dyslip idemia Take 1 tablet by mouth daily. 90 tablet Active ferrous sulfate 324 (65 Fe) MG EC tablet Take 1 tablet by mouth daily with breakfast. Do not crush, chew, or split. Active furosemide (Lasix) 80 MG tablet Take 1 tablet by mouth daily. 30 tablet Active spironolactone (Aldactone) 25 MG tablet Take 0.5 tablets by mouth daily. Active Additional Information Patient taking differently:12.5 mg Oral Daily,Taking 1/4th tablet d/t feeling dizzy when she takes it, Reported on 10/14/2024 hydroxychloroqui ne (Plaquenil) 200 MG tabletIndication s:Systemic lupus erythematosus (SLE) in adult ([facility]) Take 1.5 tablets by mouth daily. 45 tablet 5 025 2025 Active Blood Glucose Monitoring Suppl (Blood Glucose Monitor System) w/Device kit Test blood sugars twice a day to calibrate cgm. Dx E10.65 1 kit Active glucose blood test strip Use to test blood sugars twice a day to calibrate cgm. Dx 10.65 100 each 12 025 Active Lancets misc Use twice a day to calibrate cgm Dx E10.65 100 each 3 025 Active gabapentin (Neurontin) 300 MG capsule TAKE 1 CAPSULE BY MOUTH 2 TIMES A DAY 60 capsule 2 Active sucralfate (Carafate) 1 GM/10ML suspension Take 10 mL by mouth 4 times a day. 473 mL 11 Active lisinopril 20 MG tabletIndication s:Essential hypertension Take 1 tablet (20 mg total) by mouth 1 (one) time each day. Take one tablet each morning 90 tablet 3 022 2021 Discontinued nitroglycerin (Nitrostat) 0.[address] 1 tablet under the tongue every 5 minutes as needed for chest pain. 2024 Discontinued(P er Patient Report) gabapentin (Neurontin) 300 MG capsule Take 1 capsule by mouth 2 times a day. 60 capsule 025 2024 Discontinued magnesium oxide (Mag-Ox) 400 mg tablet Take 1 tablet by mouth daily. 2024 Discontinued(P er Patient Report) enoxaparin (Lovenox) 100 MG/ML solution prefilled syringe Inject 0.9 mL under the skin every evening. 5 mL 1 025 2024 Discontinued(P er Patient Report) valACYclovir (Valtrex) 500 MG tabletIndication s:HSV (herpes simplex virus) infection Take 1 tablet by mouth 2 times a day for 5 doses. 5 tablet 025 2024 Additional Information Patient not taking.Reported on 09/27/2024 magic mouthwash (lidocaine, diphenhydramine, Maalox 1:1:1) Swish and spit 15 mL every 4 hours as needed for mucositis. Shake Well. 2700 mL 11 025 2024 Discontinued(P er Patient Report) Active Problems Problem Noted Date Diagnosed Date Recurrent aphthous ulcer 10/07/2024 Acute on chronic congestive heart failure, unspecified [...] been switched to warfarin. Follows with the [facility] anti-coagulation clinic closely. Coronary atherosclerosis [...] From the hospital she was sent to [facility] for rehab. - Slowly improving, now [...] From the hospital she was sent to [facility] for rehab. - Slowly improving, now [...] From the hospital she was sent to [facility] for rehab. - Slowly improving: still [...] baclofen to help with muscle spasms/sleep at [facility]: switched to Robaxin 500 mg nightly [...] From the hospital she was sent to [facility] for rehab. - Slowly improving: still [...] baclofen to help with muscle spasms/sleep at [facility]: switched to Robaxin 500 mg nightly [...] From the hospital she was sent to [facility] for rehab. - Encouraged patient to contact surgeon (Dr. Ortiz) to discuss next steps and to discuss prognosis. Diastolic dysfunction 07/17/2021 Overview (01/05/2024): - Echocardiogram 11/27/2023: LVEF 55-60% with grade II diastolic dysfunction. Assessment & Plan (08/12/2023 2:51 PM EDT): HFpEF (EF 55-60% in 08/2022) CAD/UT s/p Stent + CABG (1999) CVA (2017) [...] 12/05/2020, 01/28/2022, 01/09/2023 Influenza, seasonal, injectable 12/08/2018 [employer] COVID-19 Vaccine (Purple Cap) 12+ 03/30/2020, 03/30/2020, [...] 12/2023. Colon cancer: Last colonoscopy 10/17/2020 at [facility] (Dr. Sujit Christine), personally visualized [...] 12/05/2020, 01/28/2022, 01/09/2023 Influenza, seasonal, injectable 12/08/2018 [employer] COVID-19 Vaccine (Purple Cap) 12+ 03/30/2020, 03/30/2020, [...] ? Colon cancer: Last colonoscopy 10/17/2020 at [facility] (Dr. Sujit Christine), personally visualized [...] reasons: ? The patient has a prior UT or stroke diagnosis A1c: Lab Results Component [...] 12/05/2020, 12/05/2020, 01/28/2022 Influenza, seasonal, injectable 12/08/2018 [employer] COVID-19 Vaccine (Purple Cap) 12+ 03/30/2020, 03/30/2020, [...] ? Colon cancer: Last colonoscopy 10/17/2020 at [facility] (Dr. Sujit Christine), personally visualized [...] - Was switched to Trelegy inhaler at [facility], refilled today 07/2021. Continues on O2 [...] as she is high risk for recurrent UT/stroke. Also on Zetia. Assessment & Plan (10/10/2021 [...] as she is high risk for recurrent UT/stroke. - Repeat lipid panel ordered 03/2021 (to [...] Paroxysmal atrial fibrillation 08/08/2017 Overview (04/16/2024): - [id number] of 6. - s/p PPM - Rate control: metoprolol ER 50 mg daily - Anticoagulation: warfarin - Follows with [facility] cardiology. Hypertension 12/26/2016 Overview (12/26/2022): - Chronic, [...] patient to discuss insulin adjustments while at [facility]. Assessment & Plan (04/09/2021 4:01 PM [...] bg control Atherosclerotic heart diseas e of [place] coronary artery without angina pectoris 05/05/2012 Overview (04/16/2024): - s/p CABG in 1999. NSTEMI s/p balloon angioplasty 05/2020 at [facility]. Follows with outside technical data analyst. Assessment & Plan (11/24/2020 8:49 AM EDT): [...] been having telephone conversations with cardiology at [facility] and is currently taking 20mg lasix and [...] Was able to get patient in with [facility] ophthalmology right after our clinic appointment (where she follows regularly). - In the meantime, provided erythromycin eye ointment for bacterial conjunctivitis treatment. Assessment & Plan (05/13/2022 3:58 PM EST): - Concerning for bacterial or viral conjunctivitis vs. Scleritis. - Needs THOMPSON eye exam. - Was able to get patient in with [facility] ophthalmology right after our [...] bowel regimen. - Last colonoscopy performed at [facility] in Oct 2020 and unremarkable. Assessment & Plan (02/06/2022 2:48 PM EST): - Based on description more consistent with constipation. Some improvement with bowel regimen. - Last colonoscopy performed at [facility] in Oct 2020 and unremarkable. [...] lesion 06/15/2020 09/07/2020 Coronary artery disease 04/28/2020 07/03/2020 Arthralgia of hip 10/19/2019 12/26/2022 Elevated total [...] organization. Date Type Department Care Team Description 10/18/2024 [facility] Internal Medicine [address], [address]rd [place] [address] Alisa Kunz, DO 10/18/2024 Telephone [facility] Internal Medicine [address], 3rd [place] [address] Alisa Kunz, DO 10/18/2024 Travel 10/14/2024 12:09 PM EDT - 10/14/2024 11:59 PM EDT Hospital Encounter [facility] [address], 1st [place] [address] Recurrent pleural effusion on left Discharge Disposition: Home or Self Care 10/14/2024 11:00 AM EDT Office Visit [facility] Medicine Specialties [address], [address]nd [place] [address] Cristian Zimmer MD Recurrent pleural effusion on left (Primary Dx); Chronic hypoxic respiratory failure; Obstructive lung disease ([facility]); Systemic lupus erythematosus (SLE) in adult ([facility]) 10/14/2024 Results Follow-Up [facility] Medicine Specialties [address], [address]nd [place] [address] Cristian Zimmer MD 10/14/2024 Travel 10/11/2024 Telephone [facility] Otolaryngology [address], [address] [place] [address] Chris Pepe MD HCN - Patient Message (questions) 10/07/2024 12:50 PM EDT Office Visit [facility] Otolaryngology [address], [address] [place] [address] Chris Pepe MD Recurrent aphthous ulcer (Primary Dx); Systemic lupus erythematosus, unspecified SLE type, unspecified organ involvement status ([facility]) 10/07/2024 Travel 10/05/2024 Refill [facility] Internal Medicine [address], [address]rd [place] [address] Alisa Kunz, DO 10/02/2024 Travel 09/28/2024 Telephone [facility] Internal Medicine [address], 3rd [place] [address] Alisa Kunz, HCN Lab/home Health 09/28/2024 Telephone [facility] Diabetes Education [address] [place] [address] Anne-Marie Kolb, SUPERVISOR OF OPERATIONS 09/28/2024 Results Follow-Up [facility] Discharge Clinic [address] [place] [address] Ashley June R, SUPERVISOR OF OPERATIONS 09/27/2024 1:20 PM EDT Office Visit [facility] [address] [place] [address] Ashley June R, SUPERVISOR OF OPERATIONS Pleural effusion (Primary Dx); Longstanding persistent atrial fibrillation (CMS/HCC); Dizziness and giddiness; Health care maintenance 09/27/2024 Travel 09/23/2024 Telephone [facility] Internal Medicine [address], [address] [place] [address] Alisa Kunz DO HCN - Patient Message 09/22/2024 Patient Outreach [facility] [address] [place] [address], [address] [place] [address] Patricia Yañez LPN Follow-up 09/20/2024 Telephone [facility] Endocrinology [address] [place] [phone] Anne-Marie Kolb, SUPERVISOR OF OPERATIONS 09/17/2024 Orders Only [facility] Internal Medicine [address], 3rd [place] [address] Alisa Kunz, 09/17/2024 Patient Outreach [facility] [address] [place] [address], [address] [place] [address] Patricia Yañez LPN TCM Call 09/16/2024 Telephone [facility] Internal Medicine [address], [address] [place] [address] Alisa Kunz, 09/16/2024 Telephone [facility] Internal Medicine [address], 3rd [place] [address] Alisa Kunz, DO HCN Clinical Concern/Question (Low heartrate) 09/16/2024 Telephone [facility] Medicine Specialties [address], [address]nd [place] [address] Charo Donaldson 09/16/2024 Telephone [facility] Endocrinology [address] [place] [address] Anne-Marie Kolb, YAMILET Med Refill 09/15/2024 Travel 09/14/2024 Travel 09/13/2024 Travel 09/11/2024 Travel 09/09/2024 Travel 09/09/2024 Telephone [facility] Medicine Specialties [address], [address]nd [place] [address] Shannen Emmanuel RN 09/09/2024 Telephone [facility] Medicine Specialties [address], [address]nd [place] [address] Charo Donaldson 09/09/2024 Results Follow-Up [facility] Internal Medicine [address], 3rd [place] [address] Zee Lazar, 09/08/2024 1:55 PM EDT - 09/08/2024 11:59 PM EDT Hospital Encounter [facility] Vascular Lab [address] Floor [address] [place] [address] Localized swelling, mass and lump, left upper limb Discharge Disposition: Home or Self Care 09/08/2024 1:36 PM EDT - 09/08/2024 1:54 PM EDT Hospital Encounter [facility] Radiology [address], 1st [place] [address] Shortness of breath Discharge Disposition: Home or Self Care 09/08/2024 11:20 AM EDT Office Visit [facility] Internal Medicine [address], 3rd [place] [address] Alisa Kunz DO Shortness of breath (Primary Dx); Restless leg syndrome; Localized swelling, mass and lump, left upper limb; Sore throat; Encounter for removal of sutures 09/08/2024 Orders Only [facility] Medicine Specialties [address], [address]nd [place] [address] Lavern Shoemaker MD Pleural effusion on right (Primary Dx) 09/08/2024 Telephone [facility] Internal Medicine [address], 3rd [place] [address] Alisa Kunz DO HCN - Patient Message 09/08/2024 Travel 09/07/2024 Telephone [facility] Specialties [address], [address]nd [place] [address] Sadiq Osborne MBBS 09/07/2024 Telephone [facility] Specialties [address], 2nd [place] [address] Charo Donaldson 09/06/2024 Telephone [facility] Internal Medicine [facility] [address]rd [place] [address] Alisa Kunz DO 09/06/2024 Telephone [facility] Specialties [address], 2nd [place] [address] Charo Donaldson 09/06/2024 Refill [facility] Endocrinology [address] [place] [address] CortesCarlAnne-Marie L, SUPERVISOR OF OPERATIONS Type 1 diabetes mellitus with other specified complication ([facility]); Dyslipidemia 09/06/2024 Refill [facility] Endocrinology [address] [place] [address] Cortes Anne-Marie L, SUPERVISOR OF OPERATIONS Type 1 diabetes mellitus with other specified complication (CMS/HCC); Dyslipidemia 09/03/2024 Telephone [facility] Internal Medicine [address] [place] [address] [address] [place] [address] Alisa Kunz L, DO HCN Clinical Concern/Question (Please see note...) 09/03/2024 Telephone [facility] Endocrinology [address] [place] [address] Anne-Marie Kolb, SUPERVISOR OF OPERATIONS 09/02/2024 Telephone [facility] Medicine [address] [place] [address] Alisa Kunz L, DO 09/02/2024 Telephone [facility] Endocrinology [address] [place] [address] Anne-Marie Kolb, SUPERVISOR OF OPERATIONS 08/31/2024 Orders Only [facility] Internal Medicine [address] [place] [address] Alisa Kunz L, At high risk for falls (Primary Dx); Type 2 diabetes mellitus without complication, with long-term current use of insulin; Compression fracture of T12 vertebra with routine healing, subsequent encounter; Osteoarthritis, unspecified osteoarthritis type, unspecified site; Pleural effusion 08/30/2024 Telephone [facility] Medicine [address] [place] [address] Alisa Kunz L, DO HCN Clinical Concern/Question 08/30/2024 Telephone [facility] Internal Medicine [address] [place] [address] Alisa Kunz L, DO HCN Clinical Concern/Question 08/27/2024 Telephone [facility] Endocrinology [address] [place] [address] Katerine Donaldson 08/27/2024 Refill [facility] Specialties [address] [address] Ruthie Moy MD Systemic lupus erythematosus (SLE) in adult ([facility]) 08/27/2024 Telephone [facility] Specialties [address] [place] [address] Sarah Hernadez RN 08/25/2024 Patient Outreach [facility] [address], [address] [place] [address] Patricia Yañez LPN TCM Call 08/25/2024 Telephone [facility] Internal Medicine [address], 3rd [place] [address] Alisa Kunz DO HCN Clinical Concern/Question 08/25/2024 Telephone [facility] Medicine Specialties [address], 2nd [place] [address] Noris Yee MD 08/25/2024 Refill [facility] Medicine Specialties [address], 2nd [place] [address] Noris Yee MD Systemic lupus erythematosus (SLE) in adult ([facility]) 08/23/2024 Travel 08/22/2024 Travel 08/21/2024 Travel 08/20/2024 Travel 08/19/2024 Travel 08/18/2024 12:57 PM EDT - 08/18/2024 1:42 PM EDT Surgery Cardiac Molecular Biologist [address] [place] [phone] Brenden Zamora MD Right heart catheterization 08/18/2024 Travel 08/17/2024 Travel 08/16/2024 Patient Outreach [facility] [address] [place], [place] [address], [address] [place] [address] Ekaterina Gómez Link 08/15/2024 Travel 08/15/2024 Refill [facility] Internal Medicine [address], 3rd [place] [address] Alisa Kunz DO 08/14/2024 3:16 PM EDT - 08/24/2024 3:19 PM EDT Hospital Encounter [facility] Inpatient [address] [place] [address] [place], Christopher N, MD Arben Ibarra MD Romond, John B, MD Chadha, Jagriti, MD Pleural effusion (Primary Dx); Acute on chronic congestive heart failure, unspecified heart failure type (CMS/HCC); Shortness of breath; Systemic lupus erythematosus (SLE) in adult ([facility]) Discharge Disposition: Home or Self Care 08/14/2024 Travel 08/12/2024 Telephone [facility] Internal Medicine [address], 3rd [place] [address] Alisa Kunz, DO HCN Clinical Concern/Question 08/11/2024 Telephone [facility] Internal Medicine [address], 3rd [place] [address] Alisa Kunz, DO HCN Clinical Concern/Question 08/09/2024 Telephone [facility] [place] [address] [address] [facility], [address] [place] [address] Cassius Gonzales MD HCN Clinical Concern/Question 08/06/2024 Telephone [facility] Medicine Specialties [address], [address]nd [place] [address] Ami Marley Edema; Shortness of Breath 08/06/2024 Telephone [facility] Endocrinology [address] [place] [address] Anne-Marie Kolb, SUPERVISOR OF OPERATIONS 08/06/2024 Telephone [facility] Internal Medicine [address], [address]rd [place] [address] Alisa Kunz, DO HCN Clinical Concern/Question 08/06/2024 Telephone [facility] Internal Medicine [address], [address]rd [place] [address] Alisa Kunz, DO HCN Clinical Concern/Question 08/04/2024 2:20 PM EDT Office Visit [facility] Endocrinology [address] [place] [address] Anne-Marie Kolb, SUPERVISOR OF OPERATIONS Type 1 diabetes mellitus with hyperglycemia ([facility]) (Primary Dx); Neuropathy; Hyperlipidemia, unspecified hyperlipidemia type 08/04/2024 10:45 AM EDT Office Visit [facility] [place] [address] [address] [facility], [address] [place] [address] Cassius Gonzales MD Heart failure with preserved ejection fraction, unspecified HF chronicity (CMS/HCC) (Primary Dx); Atrial fibrillation, unspecified type (CMS/HCC); Chronic hypoxic respiratory failure; Presence of cardiac pacemaker; Heart failure, unspecified HF chronicity, unspecified heart failure type (CMS/HCC); Pulmonary hypertension (CMS/HCC) 08/04/2024 Travel 07/30/2024 4:20 PM EDT Office Visit [facility] Otolaryngology [address], [address]rd [place] [address] Andra Herman MD Dysphonia (Primary Dx) 07/30/2024 Travel 07/30/2024 Telephone [facility] Otolaryngology [address], [address] [place] [address] Jarad Tsai Appointment 07/28/2024 Telephone [facility] Medicine Specialties [address], [address]nd [place] [address] Ami Marley Results 07/28/2024 Patient Outreach [facility] [address] [facility], [address] [place] [address] Zully Caldwell, [employer] Follow-up 07/23/2024 Telephone [facility] Internal Medicine [address], [address]rd [place] [address] Alisa Kunz DO HCN Clinical Concern/Question 07/21/2024 10:35 AM EDT - 07/21/2024 11:59 PM EDT Hospital Encounter [facility] Radiology [address], 1st [place] [address] Bilateral pleural effusion Discharge Disposition: Home or Self Care 07/21/2024 9:10 AM EDT Office Visit [facility] Medicine Specialties [address], [address]nd [place] [address] Sadiq Osborne MBBS Bilateral pleural effusion (Primary Dx); Systemic lupus erythematosus (SLE) in adult ([facility]); Rash and other nonspecific skin eruption; Primary osteoarthritis of knees, bilateral; High risk medication use 07/21/2024 Travel 07/20/2024 9:40 AM EDT Office Visit [facility] [address] [place] [address] Dinah Ramirez R, SUPERVISOR OF OPERATIONS Acute on chronic hypoxic respiratory failure (Primary Dx); Anticoagulated on Coumadin; Healthcare maintenance 07/20/2024 Results Follow-Up [facility] [address] [place] [address] Dinah Ramirez R, SUPERVISOR OF OPERATIONS 07/20/2024 Travel 07/19/2024 Telephone [facility] Internal Medicine [address], [address] [place] [address] Alisa Kunz DO HCN Clinical Concern/Question 07/19/2024 Telephone [facility] Internal Medicine [address], [address] [place] [address] Alisa Kunz DO 07/19/2024 Patient Outreach POPULATION [facility] [address] [facility], [address] [place] [address] Zully Caldwell LPN TCM Call 07/19/2024 Travel 07/19/2024 Telephone [facility] Medicine Specialties [address], [address] [place] [address] Sarah Hernadez RN from Last 3 Months Immunizations Immunization Administration Dates Next Due Hep A, Adult 01/24/2019, 9,01/24/2019,01/23,01/23/2019,06/11/2018,06/11/2018 ,06/11/2018 Influenza, High-dose, Split Virus, Trivalent, Injectable, preservative free 11/27/2023,01/18/2019,12/19/2017 Influenza, Unspecified 12/09/2019 Influenza, high-dose, quadrivalent 01/09,01/28/2022,12/05/2020,12/05,12/05/2020,01/18/2019,01/18/2019 ,01/18/2019,01/18/2019,12/19/2017,12/08,12/19/2017 Influenza, seasonal, injectable 12/08/2018 [employer] COVID-19 Vac cine (Purple Cap) 12+ 04/22/2020,04/22/2020,03/30/2020,03/30 Pneumococcal Conjugate PCV 13 08/06/2019 ,08/06/2019,08/06/2019,07/02,07/02/2016,07/02/2016 Pneumococcal Polysaccharide PPV23 2019,06/11/2018,06/11/2018,06/11 Zoster, Recombinant 01/24/2019, 9,01/24/2019,01/23,01/23/2019,06/11/2018,06/11/2018 ,06/11/2018 Family History Medical History Relation Name Comments Alcohol abuse Father Doron E Powell Arthritis Father Doron Sofiya Alfredito COPD Father Doron Sofiya Alfredito Hypercholesterolemia Father Doron Arriaza Alfredito Obesity Father Doron Arriaza Alfredito Alpha-1 antitrypsin deficiency Mother m ildred stamper alfredito kelin COPD Mother gracy stamper alfredito kelin Conversions - Other Mother gracy stam per alfredito kelin Goiter (Diffuse Nontoxic) Heart disease Mother gracy stamper alfredito kelin Hypertension Mother gracy stamper alfredito kelin Stroke Mother gracy stamper alfredito kelin Cancer Other 1 Doron E Powell Conversions - Other Other 2 Goiter ( Diffuse Nontoxic) Heart disease Other 3 Gracy Marry Stamper Powell Kelin Diabetes Sibling Relation Name Status Comments Father Doron E Powell Mother gracy stamper alfredito kelin Other 1 Doron E Powell Other 2 Other 3 Gracy Marry Stamper Powell Kelin Sibling Social History Tobacco Use Types [...] Recorded Patient Health Questionnaire-2 Score 0 09/08/2024 [facility] [place] of Occupat ional Health - Occupational Stress [...] drink first t anselmo in the morning (EYE-BIOSTATISTICS MANAGER) to steady your nerves or to [...] Mass Index 23.05 10/14/2024 10:59 AM EDT Plan of Treatment Upcoming Encounters Date Type Department Care Team (Late st Contact Info) Description 10/25/2024 10:00 AM EDT Office Visit [facility] Nephrology, Bone & Mineral Metabolism [address], [address] [place] [address] Bryon Brandon MD [address] [place] [phone] 10/27/2024 1:40 PM EDT Office Visit [facility] Endocrinology [address] [place] [phone] Anne-Marie Kolb L, SUPERVISOR OF OPERATIONS [address] [facility] [address] [place] [address] 12/23/2024 4:00 PM EDT Office Visit [facility] Special[facility] [address], [address] [place] [phone] Lavern Shoemaker MD [address] [place], [place] [phone] 02/02/2025 8:40 AM EST Office Visit [facility] Internal Medicine [address], [address]rd [place] [address] Alisa Kunz, DO [address] [place] [address] Health Maintenance Due Date Last Done Comments [facility]-Infant/Child/Adol SDOH Screenings 1950 Diabetes: Dental Exam 1961 [facility]-DTaP,Tdap,and Td Vaccines (1 - Tdap) 1970 CT Colonography 02/09/1996 Colonoscopy 02/09/1996 FIT-DNA 02/09/1996 FIT 02/09/1996 FOBT 02/09/1996 Sigmoidoscopy 02/09/1996 [facility]-RSV Vaccine: 60+ Years or (1 - Risk 60-74 years 1-dose series) 2011 NEF-VPUNQ-70 Vaccine ( season) 2023 04/22/2020, 04/22/2020, 03/30/2020, [...] this topic Medical Devices Implanted Type Area Gift Consultant Device Identifier Shelf Expiration Date Model / Serial / Lot Tendril Lead- 9 Implanted: by Naveen Velasquez (Quantity not on file) [facility] TENDRIL STS 8TC/46 / [id number] / Tendril Lead- 9 Implanted: by Naveen Velasquez (Quantity not on file) [facility] TENDRIL STS 8TC/52 / [id number] / Blank Pacemaker-6/09/2018 Implanted: by Naveen Velasquez (Quantity not on file) Pacemaker [facility] ASSURITY MRI 2272 / [id number] / Procedures Procedure Name Priority Date/Time Associated Diagnosis Comments XR CHEST 2 VIEWS Routine 10/14/2024 12:19 PM EDT Recurrent pleural effusion on left PROTHROMBIN TIME(PT) / INR Routine 09/27/2024 2:29 [...] Discharge 09/12/2024 3:01 PM EDT EXTRA TUBE PROCTOR TOP Routine 09/12/2024 2 :43 PM EDT [...] Routine 09/11/2024 1:22 PM EDT Pleural effusion NE THORACENTESIS NEEDLE/CATH PLEURA W/IMAGING Routine 09/11/2024 1:22 [...] EDT Systemic lupus erythematosus (SLE) in adult ([facility]) CBC WITH AUTO DIFFERENTIAL Routine 07/21/2024 11:18 AM EDT Systemic lupus erythematosus (SLE) in adult ([facility]) COMPREHENSIVE METABOLIC PANEL, PLASMA Routine 07/21/2024 11:18 AM EDT Systemic lupus erythematosus (SLE) in adult ([facility]) SEDIMENTATION RATE, AUTOMATED Routine 07/21/2024 11:18 AM EDT Systemic lupus erythematosus (SLE) in adult ([facility]) C-REACTIVE PROTEIN, PLASMA Routine 07/21/2024 11:18 AM EDT Systemic lupus erythematosus (SLE) in adult ([facility]) C3 COMPLEMENT Routine 07/21/2024 11:04 AM EDT Systemic lupus erythematosus (SLE) in adult ([facility]) C4 COMPLEMENT Routine 07/21/2024 11:04 AM EDT Systemic lupus erythematosus (SLE) in adult ([facility]) CBC W/O DIFFERENTIAL Routine 07/20/2024 11:28 AM EDT Acute on chronic hypoxic respiratory failure COMPREHENSIVE METABOLIC PANEL, PLASMA Routine 07/20/2024 11:28 AM EDT Acute on chronic hypoxic respiratory failure PROTHROMBIN TIME(PT) / INR Routine 07/20/2024 11:28 AM EDT Acute on chronic hypoxic respiratory failure HEPATITIS C ANTIBODY - ED W/REFLEX TO HCV QUANT PCR STAT 01/29/2024 3:32 PM EST DEXA BONE DENSITY Routine 01/10/2023 10:23 AM EDT Osteopenia, unspecified location MAMMOGRAPHY BREAST SCREENING TOMOSYNTHESIS BILATERAL Routine 11/09/2021 4:12 PM EDT Healthcare maintenance from Last 3 Months or Most Recently Relevant to Health Maintenance Results * XR Chest 2 Views (10/14/2024 12:19 PM EDT) Only the most recent of4 resultswithin the time period is included. Anatomical [...] Zimmer MD IMG XR PROCEDURES Final Result * (ABNORMAL) Protime-INR (09/27/2024 2:29 PM EDT) Only the most recent of19 resultswithin the time period is included. Prothrombin Time 19.5(H) 12.0 - 14.3 sec LAB COAGULATION METHOD 09/27/2024 5:42 PM EDT [facility] INR 1.6(H) 0.9 - 1.1 LAB COAGULATION METHOD 09/27/2024 5:42 PM EDT [facility] Blood Venous blood specimen / Unknown Venipuncture / Unknown 09/27/2024 2:29 PM EDT 09/27/2024 2:29 PM EDT Narrative [facility] - 09/27/2024 5:42 PM [...] of recurrent UT INR 2.5 to 3.5 June Ashley SUPERVISOR OF OPERATIONS LAB BLOOD ORDERABLES Final Result [facility] [address] [place] [address] * (ABNORMAL) CBC and differential (09/27/2024 2:29 PM EDT) Only the most recent of5 resultswithin the time period is included. WBC Count 7.40 3.70 - 10.30 10*3/uL LAB HEMATOLOGY METHOD 09/27/2024 6:24 PM EDT [facility] RBC Count 3.48(L) 3.90 - 5.20 10*6/uL LAB HEMATOLOGY METHOD 09/27/2024 6:24 PM EDT [facility] HGB 10.5(L) 11.2 - 15.7 g/dL LAB HEMATOLOGY METHOD 09/27/2024 6:24 PM EDT [facility] HCT 34.1 34.0 - 45.0 % LAB HEMATOLOGY METHOD 09/27/2024 6:24 PM EDT [facility] Platelet Count 473(H) 155 - 369 10*3/uL LAB HEMATOLOGY METHOD 09/27/2024 6:24 PM EDT [facility] MCV 98 79 - 98 fL LAB HEMATOLOGY METHOD 09/27/2024 6:24 PM EDT [facility] MCH 30.2 26.0 - 32.0 pg LAB HEMATOLOGY METHOD 09/27/2024 6:24 PM EDT [facility] MCHC 30.8 30.7 - 35.5 g/dL LAB HEMATOLOGY METHOD 09/27/2024 6:24 PM EDT [facility] RDW 16.6(H) 11.5 - 14.5 % LAB HEMATOLOGY METHOD 09/27/2024 6:24 PM EDT [facility] MPV 9.8 8.8 - 12.5 fL LAB HEMATOLOGY METHOD 09/27/2024 6:24 PM EDT [facility] nRBC 0.0 <=0.0 per 100 WBCs LAB HEMATOLOGY METHOD 09/27/2024 6:24 PM EDT [facility] Differential Type Automated LAB HEMATOLOGY METHOD 09/27/2024 6:24 PM EDT [facility] Neutrophils % 72 % LAB HEMATOLOGY METHOD 09/27/2024 6:24 PM EDT [facility] Lymphocytes % 14 % LAB HEMATOLOGY METHOD 09/27/2024 6:24 PM EDT [facility] Monocytes % 11 % LAB HEMATOLOGY METHOD 09/27/2024 6:24 PM EDT [facility] Eosinophils % 1 % LAB HEMATOLOGY METHOD 09/27/2024 6:24 PM EDT [facility] Basophils % 1 % LAB HEMATOLOGY METHOD 09/27/2024 6:24 PM EDT [facility] Immature Granulocytes % 1 % LAB HEMATOLOGY METHOD 09/27/2024 6:24 PM EDT [facility] Neutrophils Absolute 5.39 1.60 - 6.10 10*3/uL LAB HEMATOLOGY METHOD 09/27/2024 6:24 PM EDT [facility] Lymphocytes Absolute 1.04(L) 1.20 - 3.90 10*3/uL LAB HEMATOLOGY METHOD 09/27/2024 6:24 PM EDT [facility] Monocytes Absolute 0.80 0.30 - 0.90 10*3/uL LAB HEMATOLOGY METHOD 09/27/2024 6:24 PM EDT [facility] Eosinophils Absolute 0.06 0.00 - 0.50 10*3/uL LAB HEMATOLOGY METHOD 09/27/2024 6:24 PM EDT [facility] Basophils Absolute 0.06 0.00 - 0.10 10*3/uL LAB HEMATOLOGY METHOD 09/27/2024 6:24 PM EDT [facility] Immature Granulocytes Absolute 0.05 0.00 - 0.06 10*3/uL LAB HEMATOLOGY METHOD 09/27/2024 6:24 PM EDT [facility] Blood Venous blood specimen / Unknown Venipuncture / Unknown 09/27/2024 2:29 PM EDT 09/27/2024 2:29 PM EDT Narrative [facility] - 09/27/2024 6:24 PM EDT Therapeutic decision making should be based on absolute values, rather than percentages. us Fili Hutson MD LAB BLOOD ORDERABLES Final Result [facility] [address] [place] [address] * (ABNORMAL) Comprehensive metabolic panel (09/27/2024 2:29 PM EDT) Only the most recent of8 resultswithin the time period is included. Glucose, Plasma 191(H) 74 - 99 mg/dL 09/27/2024 5:45 PM EDT [facility] BUN, Plasma 23 8 - 23 mg/dL 09/27/2024 5:45 PM EDT [facility] Creatinine, Plasma 1.00 0.60 - 1.10 mg/dL 09/27/2024 5:45 PM EDT [facility] BUN/Creatinine Ratio 23 09/27/2024 5:45 PM EDT [facility] Sodium, Plasma 129(L) 136 - 145 mmol/L 09/27/2024 5:45 PM EDT [facility] Potassium, Plasma 4.2 3.6 - 4.9 mmol/L 09/27/2024 5:45 PM EDT [facility] Chloride, Plasma 88(L) 97 - 107 mmol/L 09/27/2024 5:45 PM EDT [facility] CO2, Plasma 31(H) 22 - 29 mmol/L 09/27/2024 5:45 PM EDT [facility] Anion Gap 10 6 - 16 mmol/L 09/27/2024 5:45 PM EDT [facility] Total Calcium, Plasma 9.0 8.9 - 10.2 mg/dL 09/27/2024 5:45 PM EDT [facility] Total Protein 7.3 6.3 - 7.9 g/dL 09/27/2024 5:45 PM EDT [facility] Albumin, Plasma 3.5 3.5 - 5.2 g/dL 09/27/2024 5:45 PM EDT [facility] AST, Plasma 39(H) 10 - 35 U/L 09/27/2024 5:45 PM EDT [facility] ALT, Plasma 26 10 - 35 U/L 09/27/2024 5:45 PM EDT [facility] Alkaline Phosphatase, Plasma 128 46 - 142 U/L 09/27/2024 5:45 PM EDT [facility] Total Bilirubin, Plasma 0.4 0.2 - 1.1 mg/dL 09/27/2024 5:45 PM EDT [facility] eGFRcr 59.6 mL/min/1.7 3m*2 09/27/2024 5:45 PM EDT [facility] Comment:Reported eGFRcr in m L/min/1.73m2 is based the CKD-EPI 2020 equation that does not use a race coefficient. Blood Venous blood specimen / Unknown Venipuncture / Unknown 09/27/2024 2:29 PM EDT 09/27/2024 2:29 PM EDT Fili Hutson MD LAB BLOOD ORDERABLES Final Result [facility] [address] [place] [address] * (ABNORMAL) POCT glucose meter (09/15/2024 12:18 PM EDT) Only the most recent of91 resultswithin the time period is included. POCT Glucose 324(H) 74 - 99 mg/dL 09/15/2024 12:21 PM EDT [facility] Comment:Accuracy of a glucos e result [...] Comment 09/15/2024 12:21 PM EDT [facility] Adolescent Psychiatrist ID Renetta Junior 09/15/2024 12:21 PM EDT [facility] Device ID [id number] 09/15/2024 12:21 PM EDT [facility] LAB Specimen Type POC Capillary 09/15/2024 12:21 PM EDT [facility] Blood Capillary blood specimen / Unknown 09/15/2024 12:18 PM EDT 09/15/2024 12:21 PM EDT Alex Mg MD LAB POINT OF CARE TE ST DOCKED DEVICE UNSOLICITED RESULTS Final Result [facility] [address] [place] [address] * (ABNORMAL) MOON Single Pattern (Reflex only) (09/15/2024 9:21 AM EDT) MOON Pattern Homogeneou s(A) 09/20/2024 10:53 PM EDT [email or web address] MOON Titer 1:160(A) 09/20/2024 10:53 PM EDT [facility] ([facility]) Blood Venous blood specimen / Unknown Venipuncture / Unknown 09/15/2024 9:21 AM EDT 09/15/2024 9:39 AM EDT Narrative [facility] ([facility]) - 09/20/2024 10:53 PM EDT Performed By: [facility] [address] [place] [address] [employer] W[employer] Saw Operator: Austin Bernal MD, PhD CLIA Number: [id number] Fernando Valenzuela MD LAB BLOOD ORDERABLES Final Resu lt [facility] ([facility]) [address] [place] [id number] * (ABNORMAL) CBC W/O Differential (09/15/2024 9:21 AM EDT) Only the most recent of7 resultswithin the time period is included. WBC Count 5.81 3.70 - 10.30 10*3/uL LAB HEMATOLOGY METHOD 09/15/2024 9:42 AM EDT [facility] RBC Count 3.68(L) 3.90 - 5.20 10*6/uL LAB HEMATOLOGY METHOD 09/15/2024 9:42 AM EDT [facility] HGB 10.8(L) 11.2 - 15.7 g/dL LAB HEMATOLOGY METHOD 09/15/2024 9:42 AM EDT [facility] HCT 34.3 34.0 - 45.0 % LAB HEMATOLOGY METHOD 09/15/2024 9:42 AM EDT [facility] Platelet Count 334 155 - 369 10*3/uL LAB HEMATOLOGY METHOD 09/15/2024 9:42 AM EDT [facility] MCV 93 79 - 98 fL LAB HEMATOLOGY METHOD 09/15/2024 9:42 AM EDT [facility] MCH 29.3 26.0 - 32.0 pg LAB HEMATOLOGY METHOD 09/15/2024 9:42 AM EDT [facility] MCHC 31.5 30.7 - 35.5 g/dL LAB HEMATOLOGY METHOD 09/15/2024 9:42 AM EDT [facility] RDW 15.2(H) 11.5 - 14.5 % LAB HEMATOLOGY METHOD 09/15/2024 9:42 AM EDT [facility] MPV 9.0 8.8 - 12.5 fL LAB HEMATOLOGY METHOD 09/15/2024 9:42 AM EDT [facility] nRBC 0.0 <=0.0 per 100 WBCs LAB HEMATOLOGY METHOD 09/15/2024 9:42 AM EDT [facility] Blood Venous blood specimen / Unknown Venipuncture / Unknown 09/15/2024 9:21 AM EDT 09/15/2024 9:39 AM EDT us Alex Mg MD LAB BLOOD ORDERABLES Final R esult [facility] [address] [place] [phone] * (ABNORMAL) Antinuclear Antibody (MOON) with HEp-2 Substrate, IgG by IFA (09/15/2024 9:21 AM EDT) MOON INTERPRETIVE COMMENT See Note 09/20/2024 10:53 PM EDT [facility] ([email or web address]) Anti Nuc Ab Screen Detected( H) <1:80 09/20/2024 10:53 PM EDT [facility] ([facility]) Blood Venous blood specimen / Unknown Venipuncture / Unknown 09/15/2024 9:21 AM EDT 09/15/2024 9:39 AM EDT Narrative [facility]) - 09/20/2024 10:53 PM EDT Homogeneous Pattern [...] not necessarily rule out SARD. Performed By: [facility] [address] [place] [address] [employer] Saw Operator: Austin Bernal MD, PhD CLIA Number: [id number] us Fernando Valenzuela MD LAB BLOOD ORDERABLES Final Resu lt [facility] ([facility]) [address] [place] [address] * (ABNORMAL) Magnesium, Plasma (09/15/2024 9:21 AM EDT) Only the most recent of12 resultswithin the time period is included. Magnesium, Plasma 1.7(L) 1.9 - 2.4 mg/dL 09/15/2024 10:03 AM EDT [facility] Blood Venous blood specimen / Unknown Venipuncture / Unknown 09/15/2024 9:21 AM EDT 09/15/2024 9:39 AM EDT Fernando Valenzuela MD LAB BLOOD ORDERABLES Final Resu lt Performing Organization Address [facility] de Phone Number [facility] [address] [place] [address] * (ABNORMAL) Lactate dehydrogenase (09/15/2024 9:21 AM EDT) Only the most recent of2 resultswithin the time period is included. LDH, Plasma 396(H) 116 - 250 U/L 09/15/2024 10:03 AM EDT [facility] Blood Venous blood specimen / Unknown Venipuncture / Unknown 09/15/2024 9:21 AM EDT 09/15/2024 9:39 AM EDT Alex Mg MD LAB BLOOD ORDERABLES Final R esult Performing Organization Address [facility] de Phone Number [facility] [address] [place] [address] * (ABNORMAL) Basic Metabolic Panel, Plasma (09/15/2024 9:21 AM EDT) Only the most recent of15 resultswithin the time period is included. Glucose, Plasma 206(H) 74 - 99 mg/dL 09/15/2024 10:03 AM EDT [facility] BUN, Plasma 16 8 - 23 mg/dL 09/15/2024 10:03 AM EDT [facility] Creatinine, Plasma 0.89 0.60 - 1.10 mg/dL 09/15/2024 10:03 AM EDT [facility] BUN/Creatinine Ratio 18 09/15/2024 10:03 AM EDT [facility] Sodium, Plasma 129(L) 136 - 145 mmol/L 09/15/2024 10:03 AM EDT [facility] Potassium, Plasma 4.4 3.6 - 4.9 mmol/L 09/15/2024 10:03 AM EDT [facility] Chloride, Plasma 90(L) 97 - 107 mmol/L 09/15/2024 10:03 AM EDT [facility] CO2, Plasma 29 22 - 29 mmol/L 09/15/2024 10:03 AM EDT [facility] Anion Gap 10 6 - 16 mmol/L 09/15/2024 10:03 AM EDT [facility] Total Calcium, Plasma 8.6(L) 8.9 - 10.2 mg/dL 09/15/2024 10:03 AM EDT [facility] eGFRcr 68.6 mL/min/1.7 3m*2 09/15/2024 10:03 AM EDT [facility] Comment:Reported eGFRcr in m L/min/1.73m2 is based the CKD-EPI 2020 equation that does not use a race coefficient. Blood Venous blood specimen / Unknown Venipuncture / Unknown 09/15/2024 9:21 AM EDT 09/15/2024 9:39 AM EDT us Fernando Valenzuela MD LAB BLOOD ORDERABLES Final Resu lt [facility] [address] [place] [id number] * MR Hand Left w and wo [...] multiecho sequences were obtained utilizing T1 and [id number] with and without the administration of intravenous [...] on 09/14/2024 3:19 PM Fernando Valenzuela MD IMG MRI PROCEDURES Final Result * MR Hand [...] by Alex Metz on 09/14/2024 3:53 PM Fernando Valenzuela MD IMG MRI PROCEDURES Final Result * (ABNORMAL) Sedimentation Rate, Automated (09/13/2024 9:29 PM EDT) Only the most recent of3 resultswithin the time period is included. Sedimentation Rate 49(H) <30 mm/hr 2024 9:47 PM EDT [facility] Blood Venous blood specimen / Unknown Venipuncture / Unknown 09/13/2024 9:29 PM EDT 09/13/2024 9:32 PM EDT us Pallavi Paul DO LAB BLOOD ORDERABLES Final Resu lt [facility] [address] [place] [address] * ECHO, ADULT TRANSTHORACIC LIMITED W/ CONTRAST [...] is no significant interval change noted. us Fernando Valenzuela MD CV ECHO PROCEDURES Final Result * (ABNORMAL) C-reactive protein (09/13/2024 10:00 AM EDT) Only the most recent of3 resultswithin the time period is included. CRP, Plasma 26.0(H) <=8.0 mg/L 09/13/2024 11:21 AM EDT [facility] Blood Venous blood specimen / Unknown Venipuncture / Unknown 09/13/2024 10:00 AM EDT 09/13/2024 10:25 AM EDT Narrative [facility] - 09/13/2024 11:21 AM EDT This CRP test is appropriate for assessment of infection, systemic inflammation and/or tissue injury. To assess cardiovascular disease risk order high sensitivity CRP (CRPH). Pallavi Paul DO LAB BLOOD ORDERABLES Final Resu lt [facility] [address] [place] [address] * (ABNORMAL) Herpes Simplex Virus (HSV) by PCR (09/12/2024 3:52 PM EDT) Pathologist [facility] Herpes Simplex Virus 1 (HSV-1) PCR Result Detected(A) Not Detected 09/13/2024 11:46 AM EDT [facility] Herpes Simplex Virus 2 (HSV-2) PCR Result Not Detected Not Detected 09/13/2024 11:46 AM EDT [facility] Swab Oral cavity structure / Unknown Non-blood Collection / Unknown 09/12/2024 3:52 PM EDT 09/12/2024 3:56 PM EDT Narrative [facility] - 09/13/2024 11:46 AM EDT The [...] for diagnosis or treatment of the patient. us Fernando Valenzuela MD LAB MICROBIOLOGY - GENERAL ELEONORA WEBBER Final Result [address] [address] * Quantiferon TB Gold (09/12/2024 3:50 PM EDT) Pathologist [facility] Quantiferon TB Gold Plus Result Negative Negative 09/13/2024 5:06 PM EDT [facility] TB Nill Value 0.120 IU/mL 09/13/2024 5:06 PM EDT [facility] TB Antigen 1 -0.0285 IU/mL 09/13/2024 5:06 PM EDT [facility] TB Antigen 2 -0.024 IU/mL 09/13/2024 5:06 PM EDT [facility] TB Mitogen 3.39 IU/mL 09/13/2024 5:06 PM EDT [facility] Blood Venous blood specimen / Unknown Venipuncture / Unknown 09/12/2024 3:50 PM EDT 09/12/2024 3:56 PM EDT Narrative [facility] - 09/13/2024 5:06 PM EDT Responses to the Mitogen positive control and occasionally to TB antigen can be above the assay range. For calculation purposes: IFN-gamma values > 10 IU/mL are handled as 10 IU/mL. us Pallavi Paul DO LAB BLOOD ORDERABLES Final Resu lt [facility] [address] [place] [address] * Gold Top (09/12/2024 2:43 PM EDT) Extra Hold for add-ons 09/12/2024 6:01 PM EDT [facility] Comment:Auto resulted. Blood Venous blood specimen / Unknown Venipuncture / Unknown 09/12/2024 2:43 PM EDT 09/12/2024 3:16 PM EDT us Fernando Valenzuela MD LAB BLOOD ORDERABLES Final Resu lt [facility] [address] [place] [address] * Proctor Top (09/12/2024 2:43 PM EDT) Extra Hold for add-ons 09/12/2024 6:01 PM EDT [facility] Comment:Auto resulted. Blood Venous blood specimen / Unknown Venipuncture / Unknown 09/12/2024 2:43 PM EDT 09/12/2024 3:16 PM EDT us Fernando Valenzuela MD LAB BLOOD ORDERABLES Final Resu lt Performing Organization Address [facility] Co de Phone Number [facility] [address] [place] [address] * Lavender Top (09/12/2024 2:43 PM EDT) Only the most recent of3 resultswithin the time period is included. Extra Hold for add-ons 09/12/2024 6:01 PM EDT [facility] Comment:Auto resulted. Blood Venous blood specimen / Unknown Venipuncture / Unknown 09/12/2024 2:43 PM EDT 09/12/2024 3:16 PM EDT us Fernando Valenzuela MD LAB BLOOD ORDERABLES Final Resu lt Performing Organization Address [facility] de Phone Number [facility] [address] [place] [address] * Light Green Top (09/12/2024 2:43 PM EDT) Extra Hold for add-ons 09/12/2024 6:01 PM EDT [facility] Comment:Auto resulted. Blood Venous blood specimen / Unknown Venipuncture / Unknown 09/12/2024 2:43 PM EDT 09/12/2024 3:16 PM EDT Fernando Valenzuela MD LAB BLOOD ORDERABLES Final Resu lt Performing Organization Address [facility] Co de Phone Number [facility] [address] [place] [address] * Blood Culture (Aerobic/Anaerobet Set) (09/11/2024 5:55 PM EDT) Culture No growth at day 5 09/16/2024 8:01 PM EDT [facility] Blood Venous blood specimen / Unknown Venipuncture / Unknown 09/11/2024 5:55 PM EDT 09/11/2024 6:35 PM EDT us Fernando Valenzuela MD LAB MICROBIOLOGY - GENERAL ORDE RABLES Final Result [facility] [address] [place] [address] * Fungal Culture, Sterile Body Fluid (NOT CSF) and JAS (09/11/2024 3:35 PM EDT) Culture No Fungal Growth at 3 Weeks 10/12/2024 6:39 AM EDT [facility] JAS No fungal elements seen 10/12/2024 6:39 AM EDT [facility] Pleural Fluid Specimen from pleura obtained by thoracentesis / Unknown Non-blood Collection / Unknown 09/11/2024 3:35 PM EDT 09/11/2024 3:35 PM EDT us Fernando Valenzuela MD LAB MICROBIOLOGY - GENERAL ORDE RABLES Final Result Performing Organization Address City/[facility]/ZIP Co de Phone Number [facility] [address] [place] [address] * Body Fluid Culture and Gram Stain (09/11/2024 3:35 PM EDT) Only the most recent of2 resultswithin the time period is included. Culture No growth at day 4 2024 11:19 AM EDT [facility] Gram Stain Result Moderate Polymorphonuclear leukocytes 09/14/2024 11:19 AM EDT [facility] Gram Stain Result No organisms seen 09/14/2024 11:19 AM EDT [facility] Pleural Fluid Specimen from pleura obtained by thoracentesis / Unknown Non-blood Collection / Unknown 09/11/2024 3:35 PM EDT 09/11/2024 3:35 PM EDT us Fernando Valenzuela MD LAB MICROBIOLOGY - GENERAL ORDE RABLES Final Result Performing Organization Address City/[facility]/ZIP Co de Phone Number [facility] [address] [place] [address] * XR Chest 1 View (09/11/2024 1:45 PM EDT) Only the most recent of11 [...] Amanda Chatman MD on 09/11/2024 3:41 PM us Júnior Johnson DO IMG XR PROCEDURES Final Res ult * NE THORACENTESIS NEEDLE/CATH PLEURA W/IMAGING, HC THORACENTESIS NEEDLE/CATH [...] infection and pneumothorax Alternatives discussed: No treatment Glasgow protocol: Procedure explained and questions answered to [...] midscapular line Intercostal space: 6th Puncture method: Fohe-zkh-xurprx catheter Ultrasound guidance: yes Indwelling catheter: Removed following drainage Catheter size: 6 Fr Number of attempts: 1 Drainage characteristics: Serosanguinous Post-procedure details: Chest x-ray performed: yes Procedure completion: Tolerated well, no immediate complications Comments: Total 1.1L removed, labs sent and pending. CXR ordered and pending completion. Júnior Johnson DO IN CLINIC/BEDSIDE ORDERABLE S Final Result * (ABNORMAL) Body Fluid Cell Count w/ Diff - Pleural Right (09/11/2024 1:13 PM EDT) Only the most recent of2 resultswithin the time period is included. Color, Body fluid Yellow LAB HEMATOLOGY METHOD 09/11/2024 2:07 PM EDT [facility] Appearance, Body fluid Cloudy(A) LAB HEMATOLOGY METHOD 09/11/2024 2:07 PM EDT [facility] Volume, Body fluid 5.0 cc LAB HEMATOLOGY METHOD 09/11/2024 2:07 PM EDT [facility] Fluid Container Tube 3 LAB HEMATOLOGY METHOD 09/11/2024 2:07 PM EDT [facility] Red Blood Cell Count, Body fluid 1,959 uL LAB HEMATOLOGY METHOD 09/11/2024 2:07 PM EDT [facility] Comment:Test performed by nika wills. Total Nucleated Cell Count, Body fluid 243 uL LAB HEMATOLOGY METHOD 09/11/2024 2:07 PM EDT [facility] Neutrophils %, Body fluid 20 % LAB HEMATOLOGY METHOD 09/11/2024 2:07 PM EDT [facility] Lymphocytes %, Body fluid 53 % LAB HEMATOLOGY METHOD 09/11/2024 2:07 PM EDT [facility] Monocytes/Macro phages %, Body fluid 23 % LAB HEMATOLOGY METHOD 09/11/2024 2:07 PM EDT [facility] Eosinophils %, Body fluid 0 % LAB HEMATOLOGY METHOD 09/11/2024 2:07 PM EDT [facility] Lining/Mesothel ial Cells %, Body fluid 4 % LAB HEMATOLOGY METHOD 09/11/2024 2:07 PM EDT [facility] Neutrophils Absolute (PMN), Body fluid 49 uL LAB HEMATOLOGY METHOD 09/11/2024 2:07 PM EDT [facility] Lymphocytes Absolute, Body fluid 129 uL LAB HEMATOLOGY METHOD 09/11/2024 2:07 PM EDT [facility] Monocytes/Macro phages Absolute, Body fluid 56 uL LAB HEMATOLOGY METHOD 09/11/2024 2:07 PM EDT [facility] Eosinophils Absolute, Body fluid 0 uL LAB HEMATOLOGY METHOD 09/11/2024 2:07 PM EDT [facility] Basophils Absolute, Body fluid 0 uL LAB HEMATOLOGY METHOD 09/11/2024 2:07 PM EDT [facility] Lining/Mesothel ial Cells Absolute, Body fluid 10 uL LAB HEMATOLOGY METHOD 09/11/2024 2:07 PM EDT [facility] Comment, Body fluid None LAB HEMATOLOGY METHOD 09/11/2024 2:07 PM EDT [facility] Comment:This is an appended report. These results have been appended to a previously preliminary verified report. Basophils %, Body fluid 0 % LAB HEMATOLOGY METHOD 09/11/2024 2:07 PM EDT [facility] Body Fluid Structure of right pleural cavity / Unknown Non-blood Collection / Unknown 09/11/2024 1:13 PM EDT 09/11/2024 1:25 PM EDT us Júnior Johnson DO LAB BODY FLUIDS AND STOOLS ORDERABLES NO SPECIMEN TYPE/SOURCE Final Result [facility] [address] [place] [address] * Body fluid, cytospin, pathologist interpretation (09/11/2024 1:13 PM EDT) Only the most recent of2 resultswithin the time period is included. Specimen Type Body Fluid LAB HEMATOLOGY METHOD 09/13/2024 11:14 AM EDT [facility] Specimen Source, Body Fluid Pleural, Right LAB HEMATOLOGY METHOD 09/13/2024 11:14 AM EDT [facility] Clinical Diagnosis, Body Fluid Pleural effusion LAB HEMATOLOGY METHOD 09/13/2024 11:14 AM EDT [facility] Interpretation , Body Fluid Mixed inflammatory cells, no malignancy identified 09/13/2024 11:14 AM EDT [facility] Pathologist Signature, Body Fluid 09/13/2024 11:14 AM EDT [facility] Comment:Reviewed by: Simona Long MD LAB CP ASR DISCLAIMER No 09/13/2024 11:14 AM EDT [facility] Body Fluid Structure of right pleural cavity / Unknown Non-blood Collection / Unknown 09/11/2024 1:13 PM EDT 09/11/2024 1:25 PM EDT Júnior Johnson DO LAB BODY FLUIDS AND STOOLS ORDERABLES Final Result [facility] [address] [place] [address] * Total Protein, Pleural Fluid - Pleural Right (09/11/2024 1:12 PM EDT) Only the most recent of2 resultswithin the time period is included. Total Protein, Fluid 2.4 g/dL 09/11/2024 6:20 PM EDT [facility] Pleural Fluid Structure of right pleural cavity / Unknown Non-blood Collection / Unknown 09/11/2024 1:12 PM EDT 09/11/2024 1:24 PM EDT Narrative [facility] - 09/11/2024 6:20 PM EDT This test was developed and its performance characteristics determined by [facility]. The U.S. Food and Drug Administration has not approved or cleared this test. However, FDA clearance or approval is not currently required for clinical use. The results are not intended to be used as the sole means for clinical diagnosis or patient management decisions. Fernando Valenzuela MD LAB BODY FLUIDS AND STOOLS [employer] Final Result [facility] [address] [place] [address] * Lactate Dehydrogenase, Pleural Fluid - Right (09/11/2024 1:12 PM EDT) Only the most recent of2 resultswithin the time period is included. LDH, Fluid 166 U/L 09/11/2024 6:20 PM EDT [facility] Pleural Fluid Structure of right pleural cavity / Unknown Non-blood Collection / Unknown 09/11/2024 1:12 PM EDT 09/11/2024 1:24 PM EDT Narrative [facility] - 09/11/2024 6:20 PM EDT No [...] the following criteria are present: (1) pleural zeyws-re-iwjex protein ratio of >0.5, (2) pleural dssgq-xw-nihce LDH ratio of >0.6, or (3) a pleural fluid LDH activity that is >2/3 the upper limit of a normal serum LDH activity. Light's criteria may misclassify ~25% of transudates as exudates in heart failure. These can be identified by calculating a qizue-pq-rhsxfdk albumin gradient (>1.2 g/dL) and/or a qlkdc-ds-nykns protein gradient (>3.1 g/dL). Júnior Johnson DO LAB BODY FLUIDS AND STOOLS ORDERABLES Final Result Performing Organization Address City/[facility]/ZIP Co de Phone Number [facility] [address] [place] [address] * Albumin - Pleural Right (09/11/2024 1:12 PM EDT) Only the most recent of3 resultswithin the time period is included. Albumin, Pleural Fluid 1.2 g/dL 09/11/2024 6:19 PM EDT [facility] Pleural Fluid Structure of right pleural cavity / Unknown Non-blood Collection / Unknown 09/11/2024 1:12 PM EDT 09/11/2024 1:24 PM EDT Narrative [facility] - 09/11/2024 6:19 PM EDT REPORTING RESULTS Reference Values: No established reference interval. Results should be interpreted in comparison to the concentration in blood and in conjunction with the clinical context. This test was developed and its performance characteristics determined by [facility]. The U.S. Food and Drug Administration has not approved or cleared this test; however, FDA clearance or approval is not currently required for clinical use. The results are not intended to be used as the sole means for clinical diagnosis or patient management decisions. Júnior Johnson DO LAB BODY FLUIDS AND STOOLS ORDERABLES Final Result [facility] [address] [place] [address] * (ABNORMAL) pH, pleural fluid (09/11/2024 1:12 PM EDT) Only the most recent of2 resultswithin the time period is included. pH, Pleural Fluid 7.50(L) 7.60 - 7.66 LAB HEMATOLOGY METHOD 09/11/2024 1:30 PM EDT [facility] Pleural Fluid Pleural fluid specimen / Unknown Non-blood Collection / Unknown 09/11/2024 1:12 PM EDT 09/11/2024 1:22 PM EDT Narrative [facility] - 09/11/2024 1:30 PM EDT Normal [...] and its performance characteristics determined by the [facility]. Pleural pH is measured by [...] BODY FLUIDS AND STOOLS ORDERABLES Final Result [facility] [address] [place] [address] * Cytology - Pleural Right (09/11/2024 1:12 PM EDT) Only the most recent of2 resultswithin the time period is included. Case Report Cytology Case: [id number] Authorizing Provider: Fernando Valenzuela MD Collected: 09/11/2024 1312 Ordering Location: [facility] S Inpatient Received: 09/13/2024 0937 Pathologist: Nelsy Robles MD Specimen: Pleural Fluid, Right, RIGHT PLEURAL FLUID 09/14/2024 11:40 AM EDT [facility] Final Diagnosis A. RIGHT PLEURAL FLUID - NO EVIDENCE OF MALIGNANCY - FEW MIXED INFLAMMATORY CELLS 09/14/2024 11:40 AM EDT [facility] at 1140 EDT Clinical History Pleural effusion 09/14/2024 11:40 AM EDT [facility] Previous Cancer Primary Site Other/Unknown Primary Site 09/14/2024 11:40 AM EDT [facility] Gross Description A. RIGHT PLEURAL FLUID 1000 ml's tinted, cloudy fluid processed as thin prep and cell block Cold Time: 45h 47m 09/14/2024 11:40 AM EDT [facility] Fluid Structure of right pleural cavity / Unknown 09/11/2024 1:12 PM EDT 09/13/2024 9:37 AM EDT Fernando Valenzuela MD LAB CYTOLOGY ORDERABLES Final R esult [facility] [address] [address] * Immunoglobulin G Subclasses (1, 2, 3, 4) (SO) (09/11/2024 9:24 AM EDT) IMMUNOGLOBULIN G SUBCLASS 1 1068 240 - 1118 mg/dL 09/14/2024 1:49 AM EDT [facility] ([facility]) IMMUNOGLOBULIN G SUBCLASS 2 316 124 - 549 mg/dL 09/14/2024 1:49 AM EDT [facility] ([facility]) IMMUNOGLOBULIN G SUBCLASS 3 91 21 - 134 mg/dL 09/14/2024 1:49 AM EDT [facility] ([facility]) IMMUNOGLOBULIN G SUBCLASS 4 22 1 - 123 mg/dL 09/14/2024 1:49 AM EDT [facility] ([facility]) Blood Venous blood specimen / Unknown Venipuncture / Unknown 09/11/2024 9:24 AM EDT 09/11/2024 9:30 AM EDT Narrative [facility] ([facility]) - 09/14/2024 1:49 AM EDT REFERENCE INTERVAL: Immunoglobulin G Subclass 1 The total IgG (mg/dL) can be derived from the sum of the subclass IgG1, IgG2, IgG3, and IgG4 values. However, a confirmatory and more precise total IgG is available by the turbidimetric method of quantitation for total IgG. Refer to test Immunoglobulin G, Serum ([id number]). Access complete set of age- and/or gender-specific reference intervals for this test in the [facility] Test Directory ([employer]). REFERENCE INTERVAL: Immunoglobulin G Subclass 2 Access complete set of age- and/or gender-specific reference intervals for this test in the [employer] [facility] ([employer]). REFERENCE INTERVAL: Immunoglobulin G Subclass 3 Access complete set of age- and/or gender-specific reference intervals for this test in the [employer] [facility] ([employer]). REFERENCE INTERVAL: Immunoglobulin G Subclass 4 Access complete set of age- and/or gender-specific reference intervals for this test in the [facility] Test Directory ([employer]). Performed By: [facility] [address] [place] [id number] [employer] Saw Operator: Austin Bernal MD, PhD CLIA Number: [id number] us Fernando Valenzuela MD LAB REF LAB BLOOD AND FLUID ORD Final Result [facility] ([facility]) [address] [place] [address] * ANCA Vasculitis Profile (09/11/2024 9:24 AM EDT) Myeloperoxidase (MPO) Ab, IgG 3 0 - 19 AU/mL 09/14/2024 3:07 PM EDT [facility] ([facility]) Serine Proteinase 3 (PR3) Ab, IgG 4 0 - 19 AU/mL 09/14/2024 3:07 PM EDT [facility] ([facility]) ANCA IFA Titer <1:20 <1:20 09/14/2024 3:07 PM EDT [facility] ([facility]) ANCA IFA Pattern None Detected None Detected 09/14/2024 3:07 PM EDT [facility] ([facility]) Blood Venous blood specimen / Unknown Venipuncture / Unknown 09/11/2024 9:24 AM EDT 09/11/2024 9:30 AM EDT Narrative [facility] ([facility]) - 09/14/2024 3:07 PM EDT INTERPRETIVE INFORMATION: [...] collagen vascular disease or arthritis. Performed By: [facility] [address] [place] [address] [employer] Operator: Austin Bernal MD, PhD CLIA Number: [id number] Fernando Valenzuela MD LAB BLOOD ORDERABLES Final Resu lt Performing Organization Address [facility] Co de Phone Number [facility] ([facility] [address] [place] [address] * Urinalysis Microscopic Examination (09/10/2024 1:16 PM EDT) Urine Urine specimen obtained by clean catch procedure / Unknown Non-blood Collection / Unknown 09/10/2024 1:16 PM EDT 09/10/2024 1:21 PM EDT Fernando Valenzuela MD LAB URINE ORDERABLES Final Resu lt Performing Organization Address [facility] Co de Phone Number [facility] [address] [place] [address] * Protein, Random, Urine with Creatinine (09/10/2024 1:16 PM EDT) Protein, Urine 26 mg/dL 09/10/2024 1:42 PM EDT [facility] Creatinine, Urine 12 mg/dL 09/10/2024 1:42 PM EDT [facility] Protein/Creati nine Ratio 2.2 mg/mg Creat 09/10/2024 1:42 PM EDT [facility] Urine Urine specimen obtained by clean catch procedure / Unknown Non-blood Collection / Unknown 09/10/2024 1:16 PM EDT 09/10/2024 1:21 PM EDT Fernando Valenzuela MD LAB URINE ORDERABLES Final Resu lt Performing Organization Address [facility] Co de Phone Number [facility] [address] [place] [address] * (ABNORMAL) Urinalysis with reflex microscopic (Culture NOT Included) (09/10/2024 1:16 PM EDT) Color, Urine Yellow LAB URINALYSIS - AUTOMATED METHOD 09/10/2024 1:38 PM EDT [facility] Clarity, Urine Clear LAB URINALYSIS - AUTOMATED METHOD 09/10/2024 1:38 PM EDT [facility] Spec [place], Urine 1.009 1.005 - 1.030 LAB URINALYSIS - AUTOMATED METHOD 09/10/2024 1:38 PM EDT [facility] pH, Urine 6.0 5.0 - 8.0 LAB URINALYSIS - AUTOMATED METHOD 09/10/2024 1:38 PM EDT [facility] Protein, Urine 30(A) Negative mg/dL LAB URINALYSIS - AUTOMATED METHOD 09/10/2024 1:38 PM EDT [facility] Glucose, Urine 250(A) Negative mg/dL LAB URINALYSIS - AUTOMATED METHOD 09/10/2024 1:38 PM EDT [facility] Ketones, Urine Negative Negative mg/dL LAB URINALYSIS - AUTOMATED METHOD 09/10/2024 1:38 PM EDT [facility] Blood, Urine Small(A) Negative LAB URINALYSIS - AUTOMATED METHOD 09/10/2024 1:38 PM EDT [facility] Bilirubin, Urine Negative Negative LAB URINALYSIS - AUTOMATED METHOD 09/10/2024 1:38 PM EDT [facility] Urobilinogen, Urine 0.2 0.2 to 1.0 mg/dL LAB URINALYSIS - AUTOMATED METHOD 09/10/2024 1:38 PM EDT [facility] Leukocytes, Urine Trace(A) Negative LAB URINALYSIS - AUTOMATED METHOD 09/10/2024 1:38 PM EDT [facility] Nitrite, Urine Negative Negative LAB URINALYSIS - AUTOMATED METHOD 09/10/2024 1:38 PM EDT [facility] RBC, Urine 3 0 to 3 /HPF 09/10/2024 1:38 PM EDT [facility] Comment:This result was prev iously suppressed from the chart. WBC, Urine 0 - 5 0 to 5 /HPF 09/10/2024 1:38 PM EDT [facility] Comment:This result was prev iously suppressed from the chart. Squamous Epithelial Cells 0 - 2 0 to 5 /HPF 09/10/2024 1:38 PM EDT [facility] Comment:This result was prev iously suppressed from the chart. Hyaline Casts 0 - 2 0 to 5 /LPF 09/10/2024 1:38 PM EDT [facility] Comment:This result was prev iously suppressed from the chart. Bacteria, Urine Negative Negative 09/10/2024 1:38 PM EDT [facility] Comment:This result was prev iously suppressed from the chart. Urine Urine specimen obtained by clean catch procedure / Unknown Non-blood Collection / Unknown 09/10/2024 1:16 PM EDT 09/10/2024 1:21 PM EDT Narrative [facility] - 09/10/2024 1:38 PM EDT Performed by manual method us Fernando Valenzuela MD LAB URINE ORDERABLES Final Resu lt Performing Organization Address City/[facility] Co de Phone Number [facility] [address] [place] [address] * (ABNORMAL) IG Profile (09/10/2024 3:24 AM EDT) Pathologist [facility] IGA 137 75 - 400 mg/dL 09/11/2024 12:02 AM EDT [facility] IGG 1,777(H) 720 - 1,589 mg/dL 09/11/2024 12:02 AM EDT [facility] IGM 89 35 - 225 mg/dL 09/11/2024 12:02 AM EDT [facility] Blood Venous blood specimen / Unknown Venipuncture / Unknown 09/10/2024 3:24 AM EDT 09/10/2024 3:42 AM EDT us Pallavi Paul DO LAB BLOOD ORDERABLES Final Resu lt Performing Organization Address City/[facility] Co de Phone Number [facility] [address] [place] [address] * Anti-DNA antibody, double-stranded (09/10/2024 3:24 AM EDT) Only the most recent of2 resultswithin the time period is included. Double-Strande d DNA (dsDNA) Ab IgG IFA <1:10 <1:10 09/14/2024 3:49 PM EDT [facility] ([facility]) Blood Venous blood specimen / Unknown Venipuncture / Unknown 09/10/2024 3:24 AM EDT 09/10/2024 3:42 AM EDT Narrative [facility]) - 09/14/2024 3:49 PM EDT INTERPRETIVE INFORMATION: [...] recommendations for testing may be found at https://[email or web address]/[email or web address]. Performed By: [facility] [address] [place] [address] [employer] Operator: Austin Bernal MD, PhD CLIA Number: [id number] Fernando Valenzuela MD LAB BLOOD ORDERABLES Final Resu lt Performing Organization Address City/[facility]/ZIP Co de Phone Number [facility] ([facility]) [address] [place] [address] * C3 complement (09/10/2024 3:24 AM EDT) Only the most recent of2 resultswithin the time period is included. C3 Complement 102 84 - 166 mg/dL 09/10/2024 9:22 AM EDT [facility] Blood Venous blood specimen / Unknown Venipuncture / Unknown 09/10/2024 3:24 AM EDT 09/10/2024 3:42 AM EDT Fernando Valenzuela MD LAB BLOOD ORDERABLES Final Resu lt [facility] [address] [place] [address] * C4 complement (09/10/2024 3:24 AM EDT) Only the most recent of2 resultswithin the time period is included. Pathologist [facility] C4 Complement 15 13 - 36 mg/dL 09/10/2024 9:22 AM EDT [facility] Blood Venous blood specimen / Unknown Venipuncture / Unknown 09/10/2024 3:24 AM EDT 09/10/2024 3:42 AM EDT us Fernando Valenzuela MD LAB BLOOD ORDERABLES Final Resu lt [facility] [address] [place] [address] * (ABNORMAL) Blood gas panel, venous (09/09/2024 4:50 PM EDT) Pathologist [facility] pH, Venous 7.35 7.32 - 7.43 LAB HEMATOLOGY METHOD 09/09/2024 4:59 PM EDT [facility] pCO2, Venous 58(H) 37 - 52 mmHg LAB HEMATOLOGY METHOD 09/09/2024 4:59 PM EDT [facility] pO2, Venous 19(L) 25 - 40 mmHg LAB HEMATOLOGY METHOD 09/09/2024 4:59 PM EDT [facility] SO2, Measured, Venous 20(L) 65 - 80 % LAB HEMATOLOGY METHOD 09/09/2024 4:59 PM EDT [facility] Base Excess, Venous 4.9(H) -2.0 - 3.0 mmol/L LAB HEMATOLOGY METHOD 09/09/2024 4:59 PM EDT [facility] Bicarbonate, Calculated, Venous 32(H) 22 - 26 mmol/L LAB HEMATOLOGY METHOD 09/09/2024 4:59 PM EDT [facility] Hematocrit, Whole Blood 30.9(L) 34.0 - 45.0 % LAB HEMATOLOGY METHOD 09/09/2024 4:59 PM EDT [facility] Sodium, Whole Blood 133(L) 136 - 145 mmol/L LAB HEMATOLOGY METHOD 09/09/2024 4:59 PM EDT [facility] Potassium, Whole Blood 4.0 3.6 - 4.9 mmol/L LAB HEMATOLOGY METHOD 09/09/2024 4:59 PM EDT [facility] Chloride, Whole Blood 93(L) 97 - 107 mmol/L LAB HEMATOLOGY METHOD 09/09/2024 4:59 PM EDT [facility] Glucose, Whole Blood 208(H) 74 - 99 mg/dL LAB HEMATOLOGY METHOD 09/09/2024 4:59 PM EDT [facility] Lactate, Venous, Whole Blood 2.3(H) 0.5 - 2.2 mmol/L LAB HEMATOLOGY METHOD 09/09/2024 4:59 PM EDT [facility] Ionized Calcium, Whole Blood 4.5(L) 4.6 - 5.1 mg/dL LAB HEMATOLOGY METHOD 09/09/2024 4:59 PM EDT [facility] Blood Venous blood specimen / Unknown Venipuncture / Unknown 09/09/2024 4:50 PM EDT 09/09/2024 4:55 PM [facility]T [facility] ORDERABLES Final Resul t Performing Organization Address [facility] de Phone Number [facility] [address] [place] [address] * (ABNORMAL) BNP (09/09/2024 3:50 PM EDT) Only the most recent of3 resultswithin the time period is included. N-Terminal, PROBNP, Plasma 10,690(H) 0 - 899 pg/mL 09/09/2024 4:43 PM EDT [facility] Blood Venous blood specimen / Unknown Venipuncture / Unknown 09/09/2024 3:50 PM EDT 09/09/2024 4:04 PM EDT [facility] BLOOD ORDERABLES Final Resul t Performing Organization Address [facility] de Phone Number [facility] [address] [place] [address] * EKG now - STAT (adult) (09/09/2024 3:36 PM EDT) Only the most recent of3 resultswithin the time period is included. EKG DIAGNOSIS CLASS Abnormal MUSE ECG Ventricular Rate 61 BPM MUSE ECG Atrial Rate 68 BPM MUSE ECG QRSD Interval 190 ms MUSE ECG QT Interval 546 ms MUSE ECG QTC Interval 549 ms MUSE ECG R [place] -74 degrees MUSE ECG T Wave [place] 120 degrees MUSE ECG Diagnosis Ventricular-p aced rhythm MUSE ECG Diagnosis Abnormal ECG MUSE ECG Diagnosis MUSE ECG Diagnosis Confirmed by Chris Cline ([id number]) on 09/09/2024 4:33:37 PM MUSE ECG 09/09/2024 3:36 PM EDT 09/09/2024 4:33 PM EDT Vini Wild Zhao SMITH ECG ORDERABLES Final Result MUSE ECG * VAS US Venous Duplex [...] - 160 ug/dL 09/08/2024 4:06 PM EDT [facility] Transferrin, Plasma 262 200 - 360 mg/dL 09/08/2024 4:06 PM EDT [facility] Total Iron Binding Capacity, Plasma 328 240 - 450 ug/mL 09/08/2024 4:06 PM EDT [facility] Transferrin Saturation 8(L) 14 - 50 % 09/08/2024 4:06 PM EDT [facility] Blood Venous blood specimen / Unknown Venipuncture / Unknown 09/08/2024 1:33 PM EDT 09/08/2024 1:33 PM EDT us Alisa Wild Ze DO LAB BLOOD ORDERABLES Final Res ult [facility] [address] [place] [address] * Ferritin (09/08/2024 1:33 PM EDT) Pathologist [facility] Ferritin, Serum 102 13 - 150 ng/mL 09/08/2024 4:37 PM EDT [facility] Blood Venous blood specimen / Unknown Venipuncture / Unknown 09/08/2024 1:33 PM EDT 09/08/2024 1:33 PM EDT us Alisa Kunz DO LAB BLOOD ORDERABLES Final Res ult [facility] [address] [place] [address] * SARS-CoV-2, Flu A, Flu B, and RSV (09/08/2024 1:09 PM EDT) [facility] SARS CoV-2/COVID-19 RNA PCR Result Not Detected Not Detected 09/09/2024 10:48 AM EDT [facility] Influenza A Virus PCR Result Not Detected Not Detected 09/09/2024 10:48 AM EDT [facility] Influenza B Virus PCR Result Not Detected Not Detected 09/09/2024 10:48 AM EDT [facility] Respiratory Syncytial Virus (RSV) PCR Result Not Detected Not Detected 09/09/2024 10:48 AM EDT [facility] Swab Nasopharyngeal structure / Unknown Non-blood Collection / Unknown 09/08/2024 1:09 PM EDT 09/08/2024 4:50 PM EDT Narrative [facility] - 09/09/2024 10:48 AM [...] testing. This test was performed on the Smart Pipe Respiratory Viral Panel, a PCR-based method. Negative results should be considered presumptive and do not preclude current or future infection obtained through community transmission or other exposures. Negative results must be considered in the context of an individual's recent exposures, history, presence of clinical signs and symptoms consistent with COVID-19, Influenza A or B, and RSV. us Alisa Kunz DO LAB MICROBIOLOGY - GENERAL ORD ERABLES Final Result [facility] [address] [place] [address] * RIGHT HEART CATHETERIZATION (08/18/2024 4:04 PM [...] then carried out using a 7.5F VIP [place]-Carter catheter. Pressures were recorded as the catheter [...] the patient was transferred back to the research laboratory technician holding area in good condition. [...] Mixed Venous (08/18/2024 3:52 PM EDT) [facility] POCT Oxyhemoglobin, Mixed Venous 60.8 % 08/18/2024 3:53 PM EDT [facility] Adolescent Psychiatrist ID Parvezparishbhavana Ngozi 08/18/2024 3:53 PM EDT HEALTHCARE LAB Device ID [id number] 08/18/2024 3:53 PM EDT HEALTHCARE LAB POCT Sample Site PA 08/18/2024 3:53 PM EDT [facility] POCT Total Hemoglobin 9.7(L) 11.2 - 15.7 g/dL 08/18/2024 3:53 PM EDT HEALTHCARE LAB 08/18/2024 3:52 PM EDT 08/18/2024 3:53 PM EDT Kenneth James MD LAB POINT OF CARE TE ST DOCKED DEVICE UNSOLICITED RESULTS Final Result Performing Organization Address City/State/[facility] Co de Phone Number [facility] [address] [place] [address] * (ABNORMAL) POCT CO-Oximitry, Venous (08/18/2024 3:50 PM EDT) [facility] POCT OXYHEMOGLOBIN, VENOUS 65 40 - 70 % 08/18/2024 3:50 PM EDT HEALTHCARE LAB Adolescent Psychiatrist ID Parvezparishbhavana Ngozi 08/18/2024 3:50 PM EDT HEALTHCARE LAB Device ID [id number] 08/18/2024 3:50 PM EDT HEALTHCARE LAB POCT Sample Site -[facility]- 08/18/2024 3:50 PM EDT [facility]ALTHCARE LAB POCT Total Hemoglobin 9.7(L) 11.2 - 15.7 g/dL 08/18/2024 3:50 PM EDT HEALTHCARE LAB Venous blood specimen / Unknown 08/18/2024 3:50 PM EDT 08/18/2024 3:50 PM EDT Kenneth James MD LAB POINT OF CARE TE ST DOCKED DEVICE UNSOLICITED RESULTS Final Result [facility] [address] [place] [address] * Chylomicron Electrophoresis (Reflex Only) (08/17/2024 10:57 AM EDT) Chylomicron Electrophoresis Billed 08/25/2024 6:56 PM EDT [facility] ([facility]) Fluid Pleural fluid specimen / Unknown 08/17/2024 10:57 AM EDT 08/17/2024 11:10 AM EDT Narrative [facility] ([facility]) - 08/25/2024 6:56 PM EDT Performed By: [facility] [address] [place] [address] Semiconductor Wafers Saw Operator: Austin Bernal MD, PhD CLIA Number: [id number] Boby Rouse APRN LAB REF LAB BLOOD AND FLUID ORD Final Result [facility] ([facility]) [address] [place] [address] * Triglycerides BF with RFLX to CHYLO (SO) (08/17/2024 10:57 AM EDT) Triglyceride, Fluid 27 mg/dL 08/25/2024 6:56 PM EDT [facility] ([facility]) Triglyceride Fluid Source Pleural fluid 08/25/2024 6:56 PM EDT [facility] ([facility]) Chylomicron Screen, Body Fluid Absent Absent 08/25/2024 6:56 PM EDT [facility] ([facility]) Fluid Pleural fluid specimen / Unknown 08/17/2024 10:57 AM EDT 08/17/2024 11:10 AM EDT Narrative [facility] ([facility]) - 08/25/2024 6:56 PM EDT INTERPRETIVE INFORMATION: Triglycerides, Fluid For information on body fluid reference ranges and/or interpretive guidance visit [email or web address]/bodyfluids/ This test was developed and its performance characteristics determined by [facility]. It has not been cleared or approved by the US Food and Drug Administration. This test was performed in a CLIA certified laboratory and is intended for clinical purposes. Chylomicrons were not detected. This appears to be a nonchylous fluid. INTERPRETIVE INFORMATION: Chylomicron Screen, Body Fluid This test was developed and its performance characteristics determined by [facility]. It has not been cleared or approved by the U.S. Food and Drug Administration. This test was performed in a CLIA-certified laboratory and is intended for clinical purposes. Performed By: [facility] [address] [place] [address] Semiconductor Wafers Saw Operator: Austin Bernal MD, PhD CLIA Number: [id number] Boby Rouse APRN LAB REF LAB BLOOD AND FLUID ORD Final Result [facility] ([facility]) [address] [place] [address] * Amylase, Pleural Fluid (08/17/2024 10:57 AM EDT) Amylase, Pleural Fluid 6 U/L 08/17/2024 1:23 PM EDT [facility] Pleural Fluid Structure of right pleural cavity / Unknown Non-blood Collection / Unknown 08/17/2024 10:57 AM EDT 08/17/2024 11:08 AM EDT Narrative [facility] - 08/17/2024 1:23 PM EDT Reference Values: No established reference interval. Interpret with caution. This test was developed and its performance characteristics determined by [facility]. The U.S. Food and Drug [...] upper reference limit for serum and a aekcu-oa-ismgo amylase ratio greater than one. Note: Interpretive [...] ORD ERABLES Final Result [facility] [address] [place] [address] * Cholesterol Fluid Battery (08/17/2024 10:57 AM EDT) CHOLESTEROL, FLUID 28 mg/dL 08/19/2024 1:48 PM EDT [facility] ([facility]) CHOLESTEROL FLUID SOURCE Pleural fluid 08/19/2024 1:48 PM EDT [facility] ([facility]) Pleural Fluid Structure of right pleural cavity / Unknown Non-blood Collection / Unknown 08/17/2024 10:57 AM EDT 08/17/2024 11:10 AM EDT Narrative [facility] ([facility]) - 08/19/2024 1:48 PM EDT INTERPRETIVE INFORMATION: Cholesterol, Body Fluid For information on body fluid reference ranges and/or interpretive guidance visit [email or web address].Xinyi Network/bodyfluids/ This test was developed and its performance characteristics determined by [facility]. It has not been cleared or approved by the US Food and Drug Administration. This test was performed in a CLIA certified laboratory and is intended for clinical purposes. Performed By: [facility] [address] [place] [address] Sem[employer]ductor Wafers Saw Operator: Austin Bernal MD, PhD CLIA Number: [id number] Boby Rouse APRN LAB REF LAB BLOOD AND FLUID ORD Final Result Performing Organization Address City/[facility]/ZIP Co de Phone Number [facility] ([facility]) [address] [place] [address] * Adenosine Deaminase,Pleural Fluid (08/17/2024 10:57 AM EDT) ADA, Pleural Fluid 5 0 - 30 U/L 08/19/2024 3:10 PM EDT [facility] ([facility]) Pleural Fluid Structure of right pleural cavity / Unknown Non-blood Collection / Unknown 08/17/2024 10:57 AM EDT 08/17/2024 11:10 AM EDT Narrative [facility] ([facility]) - 08/19/2024 3:10 PM EDT INTERPRETIVE INFORMATION:Adenosine Deaminase, Pleural Fluid This test was developed and its performance characteristics determined by [facility]. It has not been cleared or approved by the US Food and Drug Administration. This test was performed in a CLIA certified laboratory and is intended for clinical purposes. Performed By: [facility] [address] [place] [address] Semiconductor Wafers Saw Operator: Austin Bernal MD, PhD CLIA Number: [id number] Boby Rouse APRN LAB BODY FLUIDS AND STOOLS ORDERABLES Final Result [facility] ([facility]) [address] [place] [address] * AFB Culture and Acid Fast Stain - Pleural Right (08/17/2024 10:57 AM EDT) AFB Culture No Mycobacterial Growth at 6 Weeks 09/29/2024 5:06 PM EDT [facility] Acid Fast Stain No acid fast bacilli seen 09/29/2024 5:06 PM EDT [facility] Pleural Fluid Specimen from pleura obtained by thoracentesis / Unknown Non-blood Collection / Unknown 08/17/2024 10:57 AM EDT 08/17/2024 11:14 AM EDT Boby Rouse APRN LAB MICROBIOLOGY - GENERAL ORDERABLES Final Result [facility] [address] [place] [address] * Glucose - Pleural Right (08/17/2024 10:57 AM EDT) Glucose, Fluid 309 mg/dL 08/17/2024 1:14 PM EDT [facility] Pleural Fluid Structure of right pleural cavity / Unknown Non-blood Collection / Unknown 08/17/2024 10:57 AM EDT 08/17/2024 11:08 AM EDT Narrative [facility] - 08/17/2024 1:14 PM [...] BODY FLUIDS AND STOOLS ORDERABLES Final Result [facility] [address] [place] [address] * (ABNORMAL) Blood gas panel, arterial (08/15/2024 5:01 AM EDT) pH, Arterial 7.46(H) 7.31 - 7.42 LAB HEMATOLOGY METHOD 08/15/2024 5:14 AM EDT [facility] pCO2, Arterial 46 35 - 48 mmHg LAB HEMATOLOGY METHOD 08/15/2024 5:14 AM EDT [facility] pO2, Arterial 70(L) >70 mmHg LAB HEMATOLOGY METHOD 08/15/2024 5:14 AM EDT [facility] SO2, Measured, Arterial 95 94 - 98 % LAB HEMATOLOGY METHOD 08/15/2024 5:14 AM EDT [facility] Base Excess, Arterial 7.4(H) -2.0 - 3.0 mmol/L LAB HEMATOLOGY METHOD 08/15/2024 5:14 AM EDT [facility] Bicarbonate, Calculated, Arterial 32(H) 22 - 26 mmol/L LAB HEMATOLOGY METHOD 08/15/2024 5:14 AM EDT [facility] Hematocrit, Whole Blood 30.3(L) 34.0 - 45.0 % LAB HEMATOLOGY METHOD 08/15/2024 5:14 AM EDT [facility] Sodium, Whole Blood 137 136 - 145 mmol/L LAB HEMATOLOGY METHOD 08/15/2024 5:14 AM EDT [facility] Potassium, Whole Blood 3.0(L) 3.6 - 4.9 mmol/L LAB HEMATOLOGY METHOD 08/15/2024 5:14 AM EDT [facility] Chloride, Whole Blood 96(L) 97 - 107 mmol/L LAB HEMATOLOGY METHOD 08/15/2024 5:14 AM EDT [facility] Glucose, Whole Blood 75 74 - 99 mg/dL LAB HEMATOLOGY METHOD 08/15/2024 5:14 AM EDT [facility] Ionized Calcium, Whole Blood 4.6 4.6 - 5.1 mg/dL LAB HEMATOLOGY METHOD 08/15/2024 5:14 AM EDT [facility] Lactate, Arterial, Whole Blood 0.7 0.5 - 1.6 mmol/L LAB HEMATOLOGY METHOD 08/15/2024 5:14 AM EDT [facility] Blood Arterial blood specimen / Unknown Arterial Puncture / Unknown 08/15/2024 5:01 AM EDT 08/15/2024 5:13 AM EDT [facility] Ashish Vargas MD LAB BLOOD ORDERABLES Final R esult [facility] [address] [place] [address] * Vitamin D 25 Hydroxy (08/15/2024 4:52 AM EDT) Pathologist [facility] Vitamin D 25 Hydroxy 51.5 20.0 - 80.0 ng/mL 08/15/2024 6:37 AM EDT [facility] Blood Venous blood specimen / Unknown Venipuncture / Unknown 08/15/2024 4:52 AM EDT 08/15/2024 4:59 AM EDT Narrative [facility] - 08/15/2024 6:37 AM EDT Testing performed on YieldPlan[employer], standardized against NIST SRM 2972. When testing [...] ORDERABLES Final Re sult Performing Organization Address City/[facility] Co de Phone Number [facility] [address] [place] [address] * Phosphorus (08/15/2024 4:52 AM EDT) Phosphorus, Plasma 3.2 2.5 - 4.5 mg/dL 08/15/2024 5:32 AM EDT [facility] Blood Venous blood specimen / Unknown Venipuncture / Unknown 08/15/2024 4:52 AM EDT 08/15/2024 4:59 AM EDT Arben Ibarra MD LAB BLOOD ORDERABLES Final Re sult Performing Organization Address [facility] Co de Phone Number [facility] [address] [place] [address] * (ABNORMAL) Hemoglobin A1c (08/14/2024 6:08 PM EDT) Hemoglobin A1c 7.9(H) <5.7 % 08/15/2024 11:41 AM EDT [facility] Blood Venous blood specimen / Unknown Venipuncture / Unknown 08/14/2024 6:08 PM EDT 08/14/2024 6:10 PM EDT Narrative [facility] - 08/15/2024 11:41 AM EDT HA1C Interpretive Data: Diagnosis of Diabetes: Diabetic > or = 6.5% Pre-diabetic 5.7 to 6.4% Non-diabetic < or = 5.6% Glycemic Targets for Type I and Type II Diabetics: Non- Adults <7.0% Adults <6.0% Children and Adolescents <7.5% Source: [place] [employer]. Standards of medical care in diabetes,2017. Diabetes Care.2017:40 (suppl 1):S1-S135. us Arben Ibarra MD LAB BLOOD ORDERABLES Final Re sult Performing Organization Address City/[facility] Co de Phone Number [facility] [address] [place] [address] * (ABNORMAL) Troponin now and 120 min (08/14/2024 2:55 PM EDT) Pathologist [facility] Troponin T, High Sensitivity, 0 Hour 29(H) <14 ng/L 08/14/2024 3:43 PM EDT [facility] Blood Venous blood specimen / Unknown Venipuncture / Unknown 08/14/2024 2:55 PM EDT 08/14/2024 2:58 PM EDT Jackson Puente MD LAB BLOOD ORDERABLES Fi nal Result Performing Organization Address [facility] Co de Phone Number [facility] [address] [place] [address] * Hepatitis C Antibody - ED (01/29/2024 3:32 PM EST) [facility] Hepatitis C Antibody Negative Negative 01/29/2024 5:07 PM EST [facility] Blood Venous blood specimen / Unknown Venipuncture / Unknown 01/29/2024 3:32 PM EST 01/29/2024 4:03 PM EST Fortino Ball MD LAB BLOOD ORDERABLES Final Result Performing Organization Address City/[facility] Co de Phone Number [facility] [address] [place] [address] * Dexa Bone Density (01/10/2023 10:23 AM EDT) Anatomical Region Laterality Modality L-spine Radiographic Elissa ging Narrative 01/12/2023 8:29 AM EST Healthcare - Nephrology, Bone & Mineral Metabolism [address] [place] [address] DXA Bone Densitometry Report: [01/10/2023] Subjective BMD test performed using the EachNet DXA System (analysis version: 14.10) manufactured by [employer]. REFERRING PROVIDER: Alisa Ortega DO CLINICAL INFORMATION: [...] of change in BMD). Alisa Kunz DO [facility] DXA PROCEDURES Final Resul t * Mammography [...] 04/19/2015 Mammography Breast Screening Tomosynthesis Bilateral at [facility] 05/06/2017 Mammography Breast Screening Tomosynthesis Bilateral at [facility] 01/25/2020 Mammography Breast Screening Tomosynthesis Bilateral at [facility] BREAST COMPOSITION: The breasts are heterogeneously dense, which may obscure small masses. FINDINGS: There are post-biopsy clip(s) present in the the right breast. There is no evidence of suspicious masses, calcifications, or other abnormal findings. us Jackson Malave MD IMG BI PROCEDURES Final Re sult from Last 3 Months or Most Recently Relevant to Health Maintenance Insurance [facility] MEDICARE Advance Directives * Full Code [...] Patient has decision-making capacity? Yes Care Teams Senior Communications Specialist Relationship Specialty Start Date End Date Alisa Kunz DO [address] [place] [phone] PCP - General Internal Medicine 03/13/21 Kodi Bustos DO [address] [place] [phone] Surgeon Cardiothoracic Surgery 11/06/22 Sujit Arriola MD [address] [place] [phone] Consulting Physician Pulmonary Disease 11/06/22 Sujit Reyes MD [address] [place] [phone] Referring Physician 12/04/22 Zee Lazar DO [address] [place], [place] [id number] Resident 09/08/24
--- OUTSIDE RECORDS SUMMARY | 2024-10-18 14:58 | XMS_ITS | Encounter Summary ---
Author Organization [facility] Address [address] [place] [address] Care Team Providers Care Control Panel Assembler Name Role Phone Alisa Kunz DO Primary Care Provider [phone] Kodi Bustos DO Unavailable [phone] Sujit Arriola MD Unavailable [phone] Sujit Reyes MD Unavailable [phone] Zully Caldwell LPN Unavailable Unavailable Ekaterina Gómez Unavailable Unavailable Reason for Visit * Reason Onset Date Comments HCN Clinical Concern/Question 07/23/2024 Encounter Details Date Type Department Care Team (Late st Contact Info) Description 07/23/2024 Telephone [facility] Internal Medicine [address] [place] [address] Alisa Kunz DO [address] [place] [address] HCN Clinical Concern/Question Social History [...] often do you attend chur ch or protestant services? 1 to 4 times per year [...] [place] [facility] (including [facility])? No 08/15/2024 CAGE ASSESSMENT Answer [...] drink first t anselmo in the morning (EYE-CONSULTING MANAGER) to steady your nerves or to get rid of a hangover? 0 08/14/2024 CAGE Questionnaire Score 0 025 Utilities Answer Date Recorded In the past 12 months has [employer], gas, oil, or water [employer] threatened to shut off services in [...] weeks. * Telephone Encounter - Edgar Patel Saran - 07/23/2024 11:13 AM EDT Clinical Concern/Question Reason for Call: Requesting verbal orders for PT, once a week for four weeks, please contact for more information. Best contact number: Other: [phone] Optimal time of day to reach caller: ANYTIME Additional comments/information from caller: None Note: Please do not reply to this message. Follow-up communication and further actions as a result of this message need to be communicated with the patient directly, if the patient is not active onMyChart. If the patient is active on MyChart, they will receive notification of the communication/outcome via [employer]. documented in this encounter Plan of Treatment Upcoming Encounters Date Type Department Care Team (Late st Contact Info) Description 10/25/2024 10:00 AM EDT Office Visit [facility] Nephrology, Bone & Mineral Metabolism [address] [facility], [address] [place] [phone] Bryon Brandon MD [address] [place] [address] 10/27/2024 1:40 PM EDT Office Visit [facility] [address] [place] [address] Anne-Marie Kolb, CENTERLESS GRINDER SET UP OPERATOR [address] [facility] [address] [place] [address] 12/23/2024 4:00 PM EDT Office Visit [facility] Medicine Specialties [address] [place] [address] Lavern Shoemaker MD [address] [place] [address] 02/02/2025 8:40 AM EST Office Visit [facility] Internal Medicine [address] [place] [address] Alisa Kunz DO [address] [place] [address] documented as of this encounter [...] documented as of this encounter Care Teams Control Panel Assembler Relationship Specialty Start Date End Date Alisa Kunz DO [address] [facility] [address] [place] [phone] PCP - General Internal Medicine 03/13/21 Kodi Bustos DO [address] [place] [phone] Surgeon Cardiothoracic Surgery 11/06/22 Sujit Arriola MD [address] [place] [phone] Consulting Physician Pulmonary Disease 11/06/22 Sujit Reyes MD [address] [place] [phone] Referring Physician 12/04/22 Zully Caldwell, PIER HAND VALUE-[employer] [place] [address] TCM Nurse 07/16/24 08/15/24 Ekaterina Gómez Pottery Decorator Wash Barrel Leader 08/16/24 08/16/24 documented as of this encounter
--- OUTSIDE RECORDS SUMMARY | 2024-10-18 14:58 | XMS_ITS | Clinical Summary ---
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 (E10.621) L97.522 (ICD-10-CM ) 04/20 Active 04/20 Patricia Sutherland Non-pressure chronic ulcer of other part of left foot with fat layer exposed Cellulitis, foot, left 839486329 (SNOMED CT) 04/20 Active 04/20 Patricia Koko Cellulitis of foot Cellulitis, toe, left 12807736 (SNOMED CT) 04/20 Active 04/20 Patricia Koko Cellulitis of toe Left atrial thrombus 937537222 (SNOMED CT) 04/20 Active 04/20 Patricia Koko Atrial thrombosis SLE (Systemic lupus erythematosus ) 06534246 (SNOMED CT) 04/20 Active 04/20 Patricia Koko Systemic lupus erythematosus Presence of cardiac pacemaker 955738860 (SNOMED CT) 04/20 Active 04/20 Patricia Sutherland Cardiac pacemaker in situ Coronary artery disease, S/P CABG 846271026 (SNOMED CT) 04/20 Active 04/20 Patricia Sutherland Arteriosclerosis of coronary artery bypass graft DM, type I 71039698 (SNOMED CT) 04/20 Active 04/20 Patricia Sutherland Type 2 diabetes mellitus Benign Essential Hypertension 53231429 (SNOMED CT) 04/20 Active 04/20 Patricia Sutherland Benign hypertension Medications Medication Instructions Start Date Stop Date Generic Name NDC Provider Iron (ferrous sulfate) (ferrous sulfate) ferrous sulfate Counts Include [facility] B-12 1000 MCG CAPS every morning cya nocobalamin (vitamin b-12) 96789686120 Counts Include [facility] LIVALO 4 MG TABS every night pitavas tatin calcium 76827428902 Counts Include [facility] ZETIA 10 MG TABS every night ezetimibe 980471747 01 Counts Include [facility] latanoprost (bulk) every evening bulk Counts Include [facility] Zyrtec (cetirizine) every evening cetirizine Counts Include [facility] MYCOPHENOLATE MOFETIL 500 MG TABS twice a day mycophenolat e mofetil 16096967819 Counts Include [facility] CETIRIZINE HCL 10 MG TABS Take 1 tablet by mouth once a day 02/23 cetirizine 14920115756 Counts Include [facility] BRIMONIDINE TARTRATE 0.2 % SOLN Apply 1 drop in eye as directed 06/14 brimonidine 48052927913 Counts Include [facility] Trelegy Ellipta 200-62.5-25 MCG/INH inhaler Inhale 2 puff once a day 07/17 Trelegy Ellipta 200-62.5-25 MCG/INH inhaler Counts Include [facility] HYDROXYCHLOROQUINE SULFATE 200 MG TABS Take 1 tablet by mouth once a day 12/05 hydroxychloroquine 24480742643 Counts Include [facility] RISAQUAD CAPS Take 1 capsule by mouth once a day 04/18 l.acid,para-b.bifid um-s.therm 04880375411 Counts Include [facility] LOSARTAN POTASSIUM 25 MG TABS Take 1 tablet by mouth once a day 11/17 losartan 97722332923 Counts Include [facility] FOLIC ACID 1 MG TABS Take 1 tablet by mouth once a day folic acid 44532090467 Counts Include [facility] PITAVASTATIN CALCIUM 2 MG TABS Take 1 tablet by mouth every night 02/23 pitavastatin calcium 29541306099 Counts Include [facility] Insulin Glargine (TOUTREVOR SOLOSTAR SC) Inject 23 unit subcutaneously every night as directed 02/23 TOUJEO SOLOSTAR SC Counts Include [facility] EZETIMIBE 10 MG TABS Take 1 tablet by mouth every night 02/23 ezetimibe 19323840646 Counts Include [facility] DULOXETINE HCL 20 MG CPEP Take 1 capsule by mouth once a day 02/23 duloxetine 76688025984 Counts Include [facility] BUSPIRONE HCL 5 MG TABS Take 1 tablet by mouth twice a day buspirone 81925654521 Counts Include [facility] INSULIN LISPRO 100 UNIT/ML SOLN Inject 3 unit subcutaneously three times a day as directed 02/23 insulin lispro 34661430158 Counts Include [facility] METOPROLOL SUCCINATE ER 25 MG FG89A-LER Take 1 tablet by mouth once a day 12/06 metoprolol succinate 94186573692 Counts Include [facility] LATANOPROST 0.005 % SOLN Administer 1 drop into both eyes every night 06/15 latanoprost 76321421432 Counts Include [facility] ASPIRIN LOW DOSE 81 MG TBEC Take 1 tablet by mouth every night aspirin 01938065677 Counts Include [facility] LEVOTHYROXINE SODIUM 125 MCG TABS Take 1 tablet by mouth once a day 02/23 levothyroxine 44932826319 Counts Include [facility] WARFARIN SODIUM 5 MG TABS Take 1 tablet by mouth every night 04/04 warfarin 39823628389 Counts Include [facility] HYDROXYCHLOROQUINE SULFATE 200 MG TABS Take 1 tablet by mouth every night 02/23 hydroxychloroquine 04458965222 Counts Include [facility] AZITHROMYCIN 250 MG TABS Take 1 tablet by mouth once a day 02/23 azithromycin 28811576144 Counts Include [facility] GABAPENTIN 100 MG CAPS Take 9 capsule by mouth every night 08/28 gabapentin 47426972242 Counts Include [facility] DULOXETINE HCL 60 MG CPEP Take 1 capsule by mouth Daily. 60mg and 20mg in the morning 02/23 duloxetine 21708954074 Counts Include [facility] Calcium Citrate-Vitamin D (CALCIUM D PO) Take 1 tablet by mouth once a day CALCIUM D PO Counts Include [facility] EZETIMIBE 10 MG TABS Take 1 tablet by mouth once a day 09/20 ezetimibe 91585375332 [facility] Villar Toujeo Max U-300 SoloStar (insulin glargine u-300 conc) every morning insulin glargine u-300 conc [facility] Villar CYMBALTA 60 MG CPEP every morning duloxetine 000 53953331 Counts Include [facility] CYMBALTA 20 MG CPEP every morning duloxetine 000 31402340 Counts Include [facility] WARFARIN SODIUM 5 MG TABS Take 1 tablet by mouth Every Night. 04/04 warfarin 19950309623 [facility] Trelegy Ellipta 200-62.5-25 MCG/INH inhaler Inhale 2 puffs Daily. 07/17 Trelegy Ellipta 200-62.5-25 MCG/INH inhaler [facility] PITAVASTATIN CALCIUM 2 MG TABS Take 1 tablet by mouth Every Night. 02/23 pitavastatin calcium 32510040274 [facility] METOPROLOL SUCCINATE ER 25 MG HD35C-GMC Take 1 tablet by mouth Daily. 12/06 metoprolol succinate 57262238139 [facility] LOSARTAN POTASSIUM 25 MG TABS Take 1 tablet by mouth Daily. 11/17 losartan 06827791749 [facility] LEVOTHYROXINE SODIUM 125 MCG TABS Take 1 tablet by mouth Daily. 02/23 levothyroxine 87900220792 [facility] LATANOPROST 0.005 % SOLN Administer 1 drop to both eyes Every Night. 06/15 latanoprost 10436571879 [facility] RISAQUAD CAPS Take 1 capsule by mouth Daily for 14 days. 04/18 l.acid,para-b.bifid um-s.therm 26072320805 [facility] INSULIN LISPRO 100 UNIT/ML SOLN Inject 3 Units under the skin into the appropriate area as directed 3 (Three) Times a Day Before Meals. 02/23 insulin lispro 44548946302 [facility] Insulin Glargine (TOURANDYO SOLOSTAR SC) Inject 23 Units under the skin into the appropriate area as directed Every Night. 02/23 TOUJEO SOLOSTAR SC [facility] HYDROXYCHLOROQUINE SULFATE 200 MG TABS Take 1 tablet by mouth Daily. 12/05 hydroxychloroquine 31257159021 [facility] HYDROXYCHLOROQUINE SULFATE 200 MG TABS Take 1 tablet by mouth Every Night. 09/07 hydroxychloroquine 33311555118 [facility] GABAPENTIN 100 MG CAPS Take 9 capsules by mouth Every Night. 08/28 gabapentin 13376270128 [facility] FOLIC ACID 1 MG TABS Take 1 tablet by mouth Daily. 02/23 folic acid 06548681221 [facility] EZETIMIBE 10 MG TABS Take 1 tablet by mouth Daily. 09/20 ezetimibe 49415735231 [facility] EZETIMIBE 10 MG TABS Take 1 tablet by mouth Every Night. 02/23 ezetimibe 88495251999 [facility] DULOXETINE HCL 60 MG CPEP Take 1 capsule by mouth Daily. 60mg and 20mg in the morning 02/23 duloxetine 43060551704 [facility] DULOXETINE HCL 20 MG CPEP Take 1 capsule by mouth Daily. 02/23 duloxetine 92121272046 [facility] CETIRIZINE HCL 10 MG TABS Take 1 tablet by mouth Daily. 02/23 cetirizine 86049011146 [facility] CEFDINIR 300 MG CAPS Take 1 capsule by mouth Every 12 (Twelve) Hours for 5 doses. Indications: Infection of the Skin and/or Soft Tissue 04/17 cefdinir 41416813244 [facility] Calcium Citrate-Vitamin D (CALCIUM D PO) Take 1 tablet by mouth Daily. 02/23 CALCIUM D PO [facility] BUSPIRONE HCL 10 MG TABS Take 1 tablet by mouth 2 (Two) Times a Day. 02/23 buspirone 68823076697 [facility] BRIMONIDINE TARTRATE 0.2 % SOLN Apply 1 drop to eye(s) as directed by provider. 06/14 brimonidine 10113761362 [facility] AZITHROMYCIN 250 MG TABS Take 1 tablet by mouth Daily. 09/07 azithromycin 67629698968 [facility] ASPIRIN LOW DOSE 81 MG TBEC Take 1 tablet by mouth Every Night. 09/07 aspirin 80019134830 [facility] Medications Administered No information available. 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
--- OUTSIDE RECORDS SUMMARY | 2024-10-18 14:58 | XMS_ITS | Encounter Summary ---
Author Organization [facility] Address [address] [place] [address] Care Team Providers Care Dike Supervisor Name Role Phone Alisa Kunz DO Primary Care Provider Kodi Bustos DO Unavailable [phone] Sujit Arriola MD Unavailable [phone] Sujit Reyes MD Unavailable [phone] Patricia Yañez LPN Unavailable Unavailab le Reason for Visit * Reason Onset Date Comments Med Refill 09/06/2024 Encounter Details Date Type Department Care Team (Late st Contact Info) Description 09/06/2024 Refill Janette Suazo [facility] Endocrinology [address] [place] [address] Anne-Marie Kolb, INTERFACE ENGINEER [address] [facility] [address] [place] [address] Type 1 diabetes mellitus with [...] 08/04/2024 [facility] of Occupat ional Health - Occupational Stress [...] drink first t anselmo in the morning (EYE-TERRAZZO LABORER) to steady your nerves or to get rid of a hangover? 0 08/14/2024 CAGE Questionnaire Score 0 025 Utilities Answer Date Recorded In the past 12 months has e [employer], gas, oil, or water [email or web address] threatened to shut off services in your [...] 10/25/2024 10:00 AM EDT Office Visit [facility] Nephrology, Bone & Mineral Metabolism [address] [facility], [address] [place] [address] Bryon Brandon MD [address] [place] [address] 10/27/2024 1:40 PM EDT Office Visit [facility] Endocrinology [address] [place] [address] Anne-Marie Kolb L, INTERFACE ENGINEER [address] [facility] [address] [place] [address] 12/23/2024 4:00 PM EDT Office Visit [facility] Medicine Specialties [address] [place] [address] Lavern Shoemaker MD [address] [place], [place] [id number] 02/02/2025 8:40 AM EST Office Visit [facility] Internal Medicine [address], [address]rd [place] [address] Alisa Kunz DO [address] [address] documented as of this encounter [...] documented as of this encounter Care Teams Dike Supervisor Relationship Specialty Start Date End Date Alisa Kunz DO [address] [facility] [address] [place] [address] PCP - General Internal Medicine 03/13/21 Kodi Bustos, [address] [address] Surgeon Cardiothoracic Surgery 11/06/22 Sujit Arriola MD [address] [place] [address] Consulting Physician Pulmonary Disease 11/06/22 Sujit Reyes MD [address] [facility] [address] [place] [address] Referring Physician 12/04/22 Patricia Yañez LPN [facility] TCM Nurse 08/25/24 10/17/24 documented as of this encounter
--- OUTSIDE RECORDS SUMMARY | 2024-10-18 14:58 | XMS_ITS | Encounter Summary ---
Author Organization [facility] Address [address] [place] [address] Care Team Providers Care Laser Beam Machine Operator Name Role Phone Ze, Alisa Wild DO Primary Care Provider [phone] Kodi Bustos DO Unavailable [phone] Sujit Arriola MD Unavailable [phone] Sujit Reyes MD Unavailable [phone] Patricia Yañez LPN Unavailable Unavailab le Reason for Visit * Reason Comments Med Refill Encounter Details Date Type Department Care Team (Late st Contact Info) Description 09/06/2024 Refill [facility] Endocrinology [address] [place] [address] Anne-Marie Kolb, SOFTWARE TECHNICAL LEAD [address] [facility] [address] [place] [address] Type 1 diabetes mellitus with [...] How often do you attend chur or bahai services? 1 to 4 times [...] any time in the past 12 m [facility], were you homeless [...] any time in the past 12 m [facility], were you homeless [...] drink first t anselmo in the morning (EYE-CLINIQUE COUNTER MANAGER) to steady your nerves or to get rid of a hangover? 0 08/14/2024 CAGE Questionnaire Score 0 025 Utilities Answer Date Recorded In the past 12 months has th e [employer], gas, oil, or water [employer] threatened to shut off services in your [...] AM EDT Office Visit [facility] Nephrology, Bone & Mineral Metabolism [address] [facility], [address] [place] [address] Bryon Brandon MD [address] [place] [address] 10/27/2024 1:40 PM EDT Office Visit [facility] Endocrinology [address] [place] [address] Anne-Marie Kolb, SOFTWARE TECHNICAL LEAD [address] [facility] [address] [place] [address] 12/23/2024 4:00 PM EDT Office Visit [facility] Medicine Specialties [address] [place] [address] Lavern Shoemaker MD [address] [place], [place] [id number] 02/02/2025 8:40 AM EST Office Visit [facility] Internal Medicine [address], [address] [place] [address] Alisa Kunz DO [address] [facility] [address] [place] [address] documented as of this encounter [...] documented as of this encounter Care Teams Laser Beam Machine Operator Relationship Specialty Start Date End Date Alisa Kunz DO [address] [facility] [address] [place] [address] PCP - General Internal Medicine 03/13/21 Kodi Bustos, DO [address] [address] Surgeon Cardiothoracic Surgery 11/06/22 Sujit Arriola MD [address] [place] [address] Consulting Physician Pulmonary Disease 11/06/22 Sujit Reyes MD [address] [place] [address] Referring Physician 12/04/22 Patricia Yañez LPN [facility] TCM Nurse 08/25/24 10/17/24 documented as of this encounter
--- OUTSIDE RECORDS SUMMARY | 2024-10-18 14:59 | XMS_ITS | Encounter Summary ---
Author Organization [facility] Address [address] [place] [address] Care Team Providers Care Mapping Analyst Name Role Phone Alisa Kunz Torri DO Primary Care Provider [phone] Kodi Bustos DO Unavailable [phone] Sujit Arriola MD Unavailable [phone] Sujit Reyes MD Unavailable [phone] Patricia Yañez LPN Unavailable Unavailab le Encounter Details Date Type Department Care Team (Late st Contact Info) Description 09/07/2024 Telephone [facility] Medicine Specialties [address] [place] [address] [place] [address] Social History Tobacco Use Types Packs/Day Years [...] you attend formerly [facility] or nondenominational services? 1 to 4 times [...] Recorded Patient Health Questionnaire-2 Score 0 09/08/2024 [facility] of Occupat ional [...] drink first t anselmo in the morning (EYE-PHOTORADIO OPERATOR) to steady your nerves or to [...] She would like to speak to her nickel operator - but she would like someone different from Dr. Osborne CB: [phone] documented in this encounter Plan of Treatment Upcoming Encounters Date Type Department Care Team ([facility] st Contact Info) Description 10/25/2024 10:00 AM EDT Office Visit [facility] Nephrology, Bone & Mineral Metabolism [address] [facility], [address] [place] [address] Bryon Brandon MD [address] [place] [address] 10/27/2024 1:40 PM EDT Office Visit [facility] Endocrinology [address] [place] [address] Anne-Marie Kolb L, MARKET DIRECTOR [address] [facility] [address] [place] [address] 12/23/2024 4:00 PM EDT Office Visit [facility] Medicine Specialties [address] [place] [address] Lavern Shoemaker MD [address] [place] [address] 02/02/2025 8:40 AM EST Office Visit [facility] Internal Medicine [address], [address]rd [place] [address] Alisa Kunz DO [address] [facility] [address] [place] [address] documented as of this encounter [...] documented as of this encounter Care Teams Mapping Analyst Relationship Specialty Start Date End Date Alisa Kunz DO [address] [facility] [address] [place] [address] PCP - General Internal Medicine 03/13/21 Kodi Bustos, DO [address] [address] Surgeon Cardiothoracic Surgery 11/06/22 Sujit Arriola MD [address] [place] [address] Consulting Physician Pulmonary Disease 11/06/22 Sujit Reyes MD [address] [place] [address] Referring Physician 12/04/22 Patricia Yañez LPN [facility] TCM Nurse 08/25/24 10/17/24 documented as of this encounter
--- OUTSIDE RECORDS SUMMARY | 2024-10-18 14:59 | XMS_ITS ---
Author Organization [facility] Address [address] [place] [address] Care Team Providers Care Care Consultant Name Role Phone Alisa Kunz Torri DO Primary Care Provider [phone] Kodi Bustos DO Unavailable [phone] Sujit Arriola MD Unavailable [phone] Sujit Reyes MD Unavailable [phone] Zee Lazar DO Unavailable [phone] Transitional Care Management Status:Closed (Closed) Start date:09/17/2024 Enrollment date:09/17/2024 Enrollment reason:Identified using hospital discharge data End date:10/17/2024 Close reason:Patient graduated Overview This episode type is for outpatient care managers enrolling patients in the [facility] Transitional Care Management program. Continued Care and Services Coordination
--- OUTSIDE RECORDS SUMMARY | 2024-10-18 14:59 | XMS_ITS | Encounter Summary ---
Author Organization [facility] Address [address] [place] [address] Care Team Providers Care Ob Gyn Physician Assistant Name Role Phone Alisa Kunz DO Primary Care Provider [phone] Kodi Bustos DO Unavailable [phone] Sujit Arriola MD Unavailable [phone] Sujit Reyes MD Unavailable [phone] Patricia Yañez LPN Unavailable Unavailab Zee Lr DO Unavailable [phone] Encounter Details Date Type Department Care Team (Late st Contact Info) Description 09/09/2024 Telephone [facility] Medicine Specialties [address] [place] [address] Shannen Emmanuel RN CH-VASCULAR & INTERVENTIONAL RADIOLOGY [...] week 08/30/2022 How often do you attend [facility] or anglican services? 1 to 4 times [...] Recorded Patient Health Questionnaire-2 Score 0 09/08/2024 [facility] of Occupat ional Health - Occupational Stress [...] drink first t anselmo in the morning (EYE-HAND COKE DRAWER) to steady your nerves or to [...] Description 10/25/2024 10:00 AM EDT Office Visit [facility] Nephrology, Bone & Mineral Metabolism [address] [facility], [address] [place] [address] Bryon Brandon MD [address] [place] [address] 10/27/2024 1:40 PM EDT Office Visit [facility] Endocrinology [address] [place] [address] Anne-Marie Kolb L, SUPERVISOR GRINDING [address] [facility] [address] [place] [address] 12/23/2024 4:00 PM EDT Office Visit [facility] Medicine Specialties [address] [place] [address] Lavern Shoemaker MD [address] [place], [place] [address] 02/02/2025 8:40 AM EST Office Visit [facility] Internal Medicine [address], 3rd [place] [address] Alisa Kunz, DO [address] [place] [address] documented as of this [...] documented as of this encounter Care Teams Ob Gyn Physician Assistant Relationship Specialty Start Date End Date Alisa Kunz DO [address] [place] [address] PCP - General Internal Medicine 03/13/21 Kodi Bustos, DO [address] [address] Surgeon Cardiothoracic Surgery 11/06/22 Sujit Arriola MD [address] [place] [address] Consulting Physician Pulmonary Disease 11/06/22 Sujit Reyes MD [address] [place] [address] Referring Physician 12/04/22 Patricia Yañez LPN [facility] TCM Nurse 08/25/24 10/17/24 Zee Lazar DO [address] [place], [place] [id number] Resident 09/08/24 documented as of this encounter
--- OUTSIDE RECORDS SUMMARY | 2024-10-18 14:59 | XMS_ITS | Encounter Summary ---
Author Organization Healthcare Address [address] [place] [address] Care Team Providers Care Financial Service Representative Name Role Phone lAisa Kunz DO Primary Care Provider [phone] Kodi Bustos DO Unavailable [phone] Sujit Arriola MD Unavailable [phone] Sujit Reyes MD Unavailable [phone] Patricia Yañze LPN Unavailable Unavailab Zee Lr DO Unavailable [phone] Encounter Details Date Type Department Care Team [...] How often do you attend chur or adventism services? 1 to 4 times [...] Recorded Patient Health Questionnaire-2 Score 0 09/08/2024 [facility] of Occupat ional [facility] - Occupational Stress Questionnaire Answer [...] in a senior living (including now)? No 08/25/2024 CAGE ASSESSMENT Answer [...] drink first t anselmo in the morning (EYE-ELECTROSLAG WELDING MACHINE OPERATOR) to steady your nerves or [...] 10/25/2024 10:00 AM EDT Office Visit Professional [facility] Nephrology, Bone & Mineral Metabolism [address] [facility], [address] [place] [address] Bryon Brandon MD [address] [place] [address] 10/27/2024 1:40 PM EDT Office Visit [facility] Endocrinology [address] [place] [address] Anne-Marie Kolb, INTELLIGENCE DIRECTOR [address] [place] [address] 12/23/2024 4:00 PM EDT Office Visit [place] [facility] Medicine Specialties [address], 2nd [place] [address] Lavern Shoemaker MD 800 [place] [address] 02/02/2025 8:40 AM EST Office Visit [facility] Internal Medicine [address], 3rd [place] [address] Alisa Kunz DO [address] [place] [address] documented as of this encounter [...] as of this encounter Care Teams Financial Service Representative Relationship Specialty Start Date End Date Alisa Kunz DO [address] [facility] 304 [place] [address] PCP - General Internal Medicine 03/13/21 Kodi Bustos DO [address] [address] Surgeon Cardiothoracic Surgery 11/06/22 Sujit Arriola MD [address] [place] [address] Consulting Physician Pulmonary Disease 11/06/22 Sujit Reyes MD [address] [place] [address] Referring Physician 12/04/22 Patricia Yañez LPN [facility] TCM Nurse 08/25/24 10/17/24 Zee Lazar DO [address] [place] [address] Resident 09/08/24 documented as of this encounter
--- OUTSIDE RECORDS SUMMARY | 2024-10-18 14:59 | XMS_ITS | Encounter Summary ---
Author Organization [facility] Address [address] [place] [address] Care Team Providers Care Child Support Agent Name Role Phone Alisa Kunz DO Primary Care Provider [phone] Kodi Bustos DO Unavailable [phone] Sujit Arriola MD Unavailable [phone] Sujit Reyes MD Unavailable [phone] Patricia Yañez LPN Unavailable Unavailab Zee Lr DO Unavailable [phone] Reason for Visit * Reason Comments Med Refill Encounter Details Date Type Department Care Team (Late st Contact Info) Description 10/05/2024 Refill [facility] Internal Medicine [address], 3rd [place] [address] Alisa Kunz DO [address] [place] [address] Social History Tobacco Use Types [...] How often do you attend chur or amish services? 1 to 4 times [...] Recorded Patient Health Questionnaire-2 Score 0 09/08/2024 [facility] of Occupat ional Health [...] drink first t anselmo in the morning (EYE-COMMUNITY OUTREACH ADVOCATE) to steady your nerves or to get rid of a hangover? 0 08/14/2024 CAGE Questionnaire Score 0 025 Utilities Answer Date Recorded In the past 12 months has th e [employer], gas, oil, or water [employer] threatened to shut off services in your [...] Telephone Encounter - Alisa Kunz DO - 10/06/2024 3:42 PM EDT PDMP reviewed and appropriate. Refilled. documented in this encounter Plan of Treatment Upcoming Encounters Date Type Department Care Team (Late st Contact Info) Description 10/25/2024 10:00 AM EDT Office Visit Professional [facility] Nephrology, Bone & Mineral Metabolism [address] [facility], [address] [place] [address] Bryon Brandon MD [address] [place] [address] 10/27/2024 1:40 PM EDT Office Visit [facility] Endocrinology [address] [place] [address] Anne-Marie Kolb, STORAGE CONSULTANT [address] [facility] 125 [place] [address] 12/23/2024 4:00 PM EDT Office [facility] [place] [facility] Special[facility] [address], 2nd [place] [address] Lavern Shoemaker MD 800 [place] [address] 02/02/2025 8:40 AM EST Office Visit [facility] Internal Medicine [address], 3rd [place] [address] Alisa Kunz DO [address] [facility] 304 [place] [address] documented as of this encounter [...] as of this encounter Care Teams Child Support Agent Relationship Specialty Start Date End Date Alisa Kunz DO [address] [facility] 304 [place] [address] PCP - General Internal Medicine 03/13/21 Kodi Bustos DO [address] [address] Surgeon Cardiothoracic Surgery 11/06/22 Sujit Arriola MD [address] [place] [address] Consulting Physician Pulmonary Disease 11/06/22 Sujit Reyes MD [address] [place] [address] Referring Physician 12/04/22 Patricia Yañez LPN [facility] TCM Nurse 08/25/24 10/17/24 Zee Lazar DO [address] [place] [address] Resident 09/08/24 documented as of this encounter
--- OUTSIDE RECORDS SUMMARY | 2024-10-18 14:59 | XMS_ITS | Encounter Summary ---
Author Organization [facility] Address [address] [place] [address] Care Team Providers Care Assembler Piano Name Role Phone Alisa Kunz DO Primary Care Provider [phone] Kodi Bustos DO Unavailable [phone] Sujit Arriola MD Unavailable [phone] Sujit Reyes MD Unavailable [phone] Patricia Yañez LPN Unavailable Unavailab Zee Lr DO Unavailable [phone] Encounter Details Date Type Department Care Team (Late st Contact Info) Description 09/09/2024 Telephone [facility] Medicine Specialties [address], 2nd [place] [address] [place] [address] Social History Tobacco Use Types Packs/Day Years [...] do you attend [facility] or christianity services? 1 to 4 times per year [...] Recorded Patient Health Questionnaire-2 Score 0 09/08/2024 [facility] of Occupat ional Health - Occupational Stress [...] time in the past 12 m [place], were you homeless or living in a [...] time in the past 12 m [place], were you homeless or living in a halfway (including now)? No 08/25/2024 CAGE ASSESSMENT Answer [...] drink first t anselmo in the morning (EYE-CARTON MAKING MACHINIST) to steady your nerves or to get [...] having to go through the ER CB: [phone] to reach daughter Madyson - patient is with her in the room at the time of the call documented in this encounter Plan of Treatment Upcoming Encounters Date Type Department Care Team (Late st Contact Info) Description 10/25/2024 10:00 AM EDT Office Visit Professional [employer] Nephrology, Bone & Mineral Metabolism [address] [facility], [address] [place] [address] Bryon Brandon MD 800 [place] [address] 10/27/2024 1:40 PM EDT Office Visit [facility] Endocrinology [address] [place] [address] Anne-Marie Kolb L, ART MANAGER [address] [place] [address] 12/23/2024 4:00 PM EDT Office Visit [place] [facility] [address], 2nd [place] [address] Lavern Shoemaker MD 800 [place] [address] 02/02/2025 8:40 AM EST Office Visit [facility] Internal Medicine [address], 3rd [place] [address] Alisa Kunz DO [address] [place] [address] documented as of this encounter [...] as of this encounter Care Teams Assembler Piano Relationship Specialty Start Date End Date Alisa Kunz DO [address] [place] [address] PCP - General Internal Medicine 03/13/21 Kodi Bustos DO [address] [address] Surgeon Cardiothoracic Surgery 11/06/22 Sujit Arriola MD [address] [place] [address] Consulting Physician Pulmonary Disease 11/06/22 Sujit Reyes MD [address] [place] [address] Referring Physician 12/04/22 Patricia Yañez LPN [facility] TCM Nurse 08/25/24 10/17/24 Zee Lazar DO 800 [place], [place] [id number] Resident 09/08/24 documented as of this encounter
--- OUTSIDE RECORDS SUMMARY | 2024-10-18 14:59 | XMS_ITS | Encounter Summary ---
Author Organization Healthcare Address [address] [place] [address] Care Team Providers Care Sample Tester Name Role Phone Alisa Kunz DO Primary Care Provider Kdoi Bustos DO Unavailable [phone] Sujit Arriola MD Unavailable [phone] Sujit Reyes MD Unavailable [phone] Patricia Yañez LPN Unavailable Unavailab Zee Lr DO Unavailable [phone] Encounter Details Date Type Department Care Team (Late st Contact Info) Description 09/09/2024 Results Follow-Up [facility] Internal Medicine [address], 3rd [place] [address] Zee Lazar DO [address] [place], [place] [address] Social History Tobacco Use Types Packs/Day Years [...] often do you attend chur ch or druze services? 1 to 4 times [...] time in the past 12 m [place], were you homeless or living in a [...] time in the past 12 m [place], were you homeless or living in a fpc (including now)? No 09/13/2024 CAGE ASSESSMENT Answer [...] drink first t anselmo in the morning (EYE-BAKER PIE) to steady your nerves or to get rid of a hangover? 0 08/14/2024 CAGE Questionnaire Score 0 025 Utilities Answer Date Recorded In the past 12 months has th e [employer], gas, oil, or water company threatened to [...] 10:00 AM EDT [facility] Nephrology, Bone & Mineral Metabolism [address] [facility], [address] [place] [address] Bryon Brandon MD 800 [place] [address] 10/27/2024 1:40 PM EDT Office Visit [facility] Endocrinology [address] [place] [address] Anne-Marie Kolb L, BIOLOGIST AIDE [address] [facility] [address] [place] [address] 12/23/2024 4:00 PM EDT Office Visit [facility] Medicine Specialties [address], 2nd [place] [address] Lavern Shoemaker MD 800 [place] [address] 02/02/2025 8:40 AM EST Office Visit [facility] Internal Medicine [address], 3rd [place] [address] Alisa Kunz DO [address] [place] [address] documented as of this encounter [...] documented as of this encounter Care Teams Sample Tester Relationship Specialty Start Date End Date Alisa Kunz DO [address] [place] [address] PCP - General Internal Medicine 03/13/21 Kodi Bustos DO [address] [address] Surgeon Cardiothoracic Surgery 11/06/22 Sujti Arriola MD [address] [place] [address] Consulting Physician Pulmonary Disease 11/06/22 Sujit Reyes MD [address] [place] [address] Referring Physician 12/04/22 Patricia Yañez LPN [facility] TCM Nurse 08/25/24 10/17/24 Zee Lazar DO 800 [place], [place] [address] Resident 09/08/24 documented as of this encounter
--- OUTSIDE RECORDS SUMMARY | 2024-10-18 14:59 | XMS_ITS | Encounter Summary ---
Author Organization Healthcare Address [address] [place] [address] Care Team Providers Care Park Aide Name Role Phone Alisa Kunz DO Primary Care Provider [phone] Kodi Bustos DO Unavailable [phone] Sujit Arriola MD Unavailable [phone] Sujit Reyes MD Unavailable [phone] Patricia Yañez LPN Unavailable Unavailab Zee Lr DO Unavailable [phone] Encounter Details Date Type Department Care Team [...] drink first t anselmo in the morning (EYE-INSTRUCTOR CREELER) to steady your nerves or to get rid of a hangover? 0 08/14/2024 CAGE Questionnaire Score 0 025 Utilities Answer Date Recorded In the past 12 months has th e [employer], gas, oil, or water company threatened to [...] Author No Risk Indicated 09/08/2024 11:19 AM JANET Shashank Esquivel * If you checked off [...] Description 10/25/2024 10:00 AM EDT Office Visit [facility] Nephrology, Bone & Mineral Metabolism [address] [facility], [address] [place] [address] Bryon Brandon MD [address] [place] [address] 10/27/2024 1:40 PM EDT Office Visit [facility] Endocrinology [address] [place] [address] Anne-Marie Kolb, CARDIOPULMONARY TECHNICIAN AND EEG TECH [address] [facility] 125 [place] [address] 12/23/2024 4:00 PM EDT Office Visit [facility] Medicine Specialties [address], 2nd [place] [address] Lavern Shoemaker MD 800 [place], [place] [address] 02/02/2025 8:40 AM EST Office Visit [facility] Internal Medicine [address], 3rd [place] [address] Alisa Kunz DO [address] [facility] [address] [place] [address] documented as of [...] documented as of this encounter Care Teams Park Aide Relationship Specialty Start Date End Date Alisa Kunz DO [address] [facility] [address] [place] [address] PCP - General Internal Medicine 03/13/21 Kodi Bustos DO [address] [address] Surgeon Cardiothoracic Surgery 11/06/22 Sujit Arriola MD [address] [place] [address] Consulting Physician Pulmonary Disease 11/06/22 Sujit Reyes MD [address] [place] [address] Referring Physician 12/04/22 Patricia Yañez LPN [facility] TCM Nurse 08/25/24 10/17/24 Zee Lazar DO [address] [place] [address] Resident 09/08/24 documented as of this encounter
--- OUTSIDE RECORDS SUMMARY | 2024-10-18 14:59 | XMS_ITS | Encounter Summary ---
Author Organization Healthcare Address [address] [place] [address] Care Team Providers Care Type Copy Examiner Name Role Phone Alisa Kunz DO Primary Care Provider [phone] Kodi Bustos DO Unavailable [phone] Sujit Arriola MD Unavailable [phone] Sujit Reyes MD Unavailable [phone] Patricia Yañez LPN Unavailable Unavailab Zee Lr DO Unavailable [phone] Encounter Details Date Type Department Care Team [...] How often do you attend chur or pentecostalism services? 1 to 4 times [...] Recorded Patient Health Questionnaire-2 Score 0 09/08/2024 [facility] of Occupat ional [facility] - Occupational Stress Questionnaire Answer [...] living in a alf (including now)? No 09/13/2024 CAGE ASSESSMENT Answer [...] drink first t anselmo in the morning (EYE-BOOKBINDER APPRENTICE) to steady your nerves or to get rid of a hangover? 0 08/14/2024 CAGE Questionnaire Score 0 025 Utilities Answer Date Recorded In the past 12 months has th e [employer], gas, oil, or water [employer] threatened to shut off services in your [...] 10/25/2024 10:00 AM EDT Office Visit [facility] Nephrology, Bone & Mineral Metabolism [address] [facility], [address] [place] [address] Bryon Brandon MD [address] [place] [address] 10/27/2024 1:40 PM EDT Office Visit [facility] Endocrinology [address] [place] [address] Anne-Marie Kolb, WOODS WARDEN [address] [facility] 125 [place] [address] 12/23/2024 4:00 PM EDT Office Visit [facility] [address], 2nd [place] [address] Lavern Shoemaker MD 800 [place] [address] 02/02/2025 8:40 AM EST Office Visit [facility] Internal Medicine [address], 3rd [place] [address] Alisa Kunz DO [address] [facility] 304 [place] [address] documented as of this encounter [...] documented as of this encounter Care Teams Type Copy Examiner Relationship Specialty Start Date End Date Alisa Kunz DO [address] [facility] 304 [place] [address] PCP - General Internal Medicine 03/13/21 Kodi Bustos DO [address] [address] Surgeon Cardiothoracic Surgery 11/06/22 Sujit Arriola MD [address] [place] [address] Consulting Physician Pulmonary Disease 11/06/22 Sujit Reyes MD [address] [place] [address] Referring Physician 12/04/22 Patricia Yañez LPN [facility] TCM Nurse 08/25/24 10/17/24 Zee Lazar DO [address] [place] [address] Resident 09/08/24 documented as of this encounter
--- OUTSIDE RECORDS SUMMARY | 2024-10-18 14:59 | XMS_ITS | Encounter Summary ---
Author Organization Healthcare Address [address] [place] [address] Care Team Providers Care Power Reactor Operator Name Role Phone Alisa Kunz DO Primary Care Provider [phone] Kodi Bustos DO Unavailable [phone] Sujit Arriola MD Unavailable [phone] Sujit Reyes MD Unavailable [phone] Patricia Yañez LPN Unavailable Unavailab Zee Lr DO Unavailable [phone] Encounter Details Date Type Department Care Team [...] 09/08/2024 [facility] of Occupat ional [facility] - Occupational Stress Questionnaire Answer Date [...] in a senior care (including now)? No 09/13/2024 CAGE ASSESSMENT Answer [...] drink first t anselmo in the morning (EYE-UNIVERSITY LECTURER) to steady your nerves or to get rid of a hangover? 0 08/14/2024 CAGE Questionnaire Score 0 025 Utilities Answer Date Recorded In the past 12 months has th e [employer], gas, oil, or water [employer] threatened to shut off services in your [...] 10/25/2024 10:00 AM EDT Office Visit [facility] Nephrology, Bone & Mineral Metabolism [address] [facility], [address] [place] [address] Bryon Brandon MD [address] [place] [address] 10/27/2024 1:40 PM EDT Office Visit [facility] Endocrinology [address] [place] [address] Anne-Marie Kolb, HIDE AND SKIN CLASSER [address] [facility] 125 [place] [address] 12/23/2024 4:00 PM EDT Office Visit [facility] Medicine Specialties [address], 2nd [place] [address] Lavern Shoemaker MD 800 [place] [address] 02/02/2025 8:40 AM EST Office Visit [facility] Internal Medicine [address], 3rd [place] [address] Alisa Kunz DO [address] [facility] 304 [place] [address] documented as of this encounter [...] as of this encounter Care Teams Power Reactor Operator Relationship Specialty Start Date End Date Alisa Kunz DO [address] [facility] 304 [place] [address] PCP - General Internal Medicine 03/13/21 Kodi Bustos DO [address] [address] Surgeon Cardiothoracic Surgery 11/06/22 Sujit Arriola MD [address] [place] [address] Consulting Physician Pulmonary Disease 11/06/22 Sujit Reyes MD [address] [place] [address] Referring Physician 12/04/22 Patricia Yañez LPN [facility] TCM Nurse 08/25/24 10/17/24 Zee Lazar DO [address] [place] [address] Resident 09/08/24 documented as of this encounter
--- OUTSIDE RECORDS SUMMARY | 2024-10-18 14:59 | XMS_ITS | Encounter Summary ---
Author Organization Healthcare Address [address] [place] [address] Care Team Providers Care Guest Services Director Name Role Phone Alisa Kunz DO Primary Care Provider [phone] Kodi Bustos DO Unavailable [phone] Sujit Arriola MD Unavailable [phone] Sujit Reyes MD Unavailable [phone] Patricia Yañez LPN Unavailable Unavailab Zee Lr DO Unavailable [phone] Encounter Details Date Type Department Care Team [...] 0 09/08/2024 [facility] of Occupat ional [facility] - Occupational Stress Questionnaire Answer Date [...] living in a retirement (including now)? No 08/25/2024 CAGE ASSESSMENT Answer [...] drink first t anselmo in the morning (EYE-MOLASSES COLORING OPERATOR) to steady your nerves or to [...] Cunha, EVITA documented as of this encounter Plan of Treatment Upcoming Encounters Date Type Department Care Team (Late st Contact Info) Description 10/25/2024 10:00 AM EDT Office Visit [facility] Nephrology, Bone & Mineral Metabolism [address] [facility], [address] [place] [address] Bryon Brandon MD [address] [place] [address] 10/27/2024 1:40 PM EDT Office Visit [facility] Endocrinology [address] [place] [address] Anne-Marie Kolb, DEPUTY CONTROLLER [address] [place] [address] 12/23/2024 4:00 PM EDT Office Visit [facility] Medicine Specialties [address] 2nd [place] [address] Lavern Shoemaker MD 800 [place] [address] 02/02/2025 8:40 AM EST Office Visit [facility] Internal Medicine [address], 3rd [place] [address] Alisa Kunz DO [address] [facility] 304 [place] [address] documented as of this encounter [...] documented as of this encounter Care Teams Guest Services Director Relationship Specialty Start Date End Date Alisa Kunz DO [address] [facility] 304 [place] [address] PCP - General Internal Medicine 03/13/21 Kodi Bustos, [address] [address] Surgeon Cardiothoracic Surgery 11/06/22 Sujit Arriola MD [address] [place] [address] Consulting Physician Pulmonary Disease 11/06/22 Sujit Reyes MD [address] [place] [address] Referring Physician 12/04/22 Patricia Yañez LPN [facility] TCM Nurse 08/25/24 10/17/24 Zee Lazar DO 800 [place] [address] Resident 09/08/24 documented as of this encounter
--- OUTSIDE RECORDS SUMMARY | 2024-10-18 14:59 | XMS_ITS | Encounter Summary ---
Author Organization Healthcare Address [address] [place] [address] Care Team Providers Care Cow Puncher Name Role Phone Alisa Kunz Torri DO Primary Care Provider Kodi Bustos DO Unavailable [phone] Sujit Arriola MD Unavailable [phone] Sujit Reyes MD Unavailable [phone] Patricia Yañez LPN Unavailable Unavailab Zee Lr DO Unavailable [phone] Encounter Details Date Type Department Care Team (Late st Contact Info) Description 09/07/2024 Telephone [facility] Medicine Specialties [address], [address] [place] [address] Sadiq Osborne, SAHNA [address] [id number] Social History Tobacco Use Types Packs/Day Years [...] Patient Health Questionnaire-2 Score 0 09/08/2024 [facility] of Occupat ional Health [...] drink first t anselmo in the morning (EYE-LAND SALES AGENT) to steady your nerves or to get rid of a hangover? 0 08/14/2024 CAGE Questionnaire Score 0 025 Utilities Answer Date Recorded In the past 12 months has th [employer], gas, oil, or water [employer] threatened to shut off services in your [...] Reason for Call: Called pt to r/s roscoe amador. Pt states she cannot wait until first available whichis March. She states she is having increased pain, her hand is swollen she can't move it, it's red, she has sores in her mouth. Please call. Best contact number: [phone] (mobile) Optimal time of day to reach caller: ANYTIME Additional comments/information from caller: None Note: Please do not reply to this message. Follow-up communication and further actions as a result of this message need to be communicated with the patient directly, if the patient is not active onMyChart. If the patient is active on MyChart, they will receive notification of the communication/outcome via [employer] Sales[employer]. documented in this encounter Plan of Treatment Upcoming Encounters Date Type Department Care Team (Late st Contact Info) Description 10/25/2024 10:00 AM EDT Office Visit [facility] Nephrology, Bone & Mineral Metabolism [address] [facility], [address] [place] [address] Bryon Brandon MD [address] [place] [address] 10/27/2024 1:40 PM EDT Office Visit [facility] Endocrinology [address] [place] [address] Anne-Marie Kolb, EAP SPECIALIST [address] [facility] [address] [place] [address] 12/23/2024 4:00 PM EDT Office Visit [facility] Medicine Specialties [address] [place] [address] Lavern Shoemaker MD [address] [place], [place] [id number] 02/02/2025 8:40 AM EST Office Visit [facility] Internal Medicine [address], 3rd [place] [address] Alisa Kunz DO [address] [facility] [address] [place] [address] documented as of this encounter [...] documented as of this encounter Care Teams Cow Puncher Relationship Specialty Start Date End Date Alisa Kunz DO [address] [facility] [address] [place] [address] PCP - General Internal Medicine 03/13/21 Kodi Bustos, [address] [place] [address] Surgeon Cardiothoracic Surgery 11/06/22 Sujit Arriola MD [address] [facility] [address] [place] [address] Consulting Physician Pulmonary Disease 11/06/22 Sujit Reyes MD [address] [place] [address] Referring Physician 12/04/22 Patricia Yañez LPN [facility] TCM Nurse 08/25/24 10/17/24 Zee Lazar DO [address] [place] [address] Resident 09/08/24 documented as of this encounter
--- OUTSIDE RECORDS SUMMARY | 2024-10-18 14:59 | XMS_ITS | Encounter Summary ---
Author Organization Healthcare Address [address] [place] [address] Care Team Providers Care Heat Treat Worker Name Role Phone Alisa Kunz DO Primary Care Provider [phone] Kodi Bustos DO Unavailable [phone] Sujit Arriola MD Unavailable [phone] Sujit Reyes MD Unavailable [phone] Patricia Yañez LPN Unavailable Unavailab le Encounter Details Date Type Department Care Team (Late st Contact Info) Description 09/06/2024 Telephone [facility] Internal Medicine [address], 3rd [place] [address] Alisa Kunz DO [address] [place] [address] Social History Tobacco Use Types [...] Recorded Patient Health Questionnaire-2 Score 0 09/08/2024 [facility] of Occupat ional [...] first t anselmo in the morning (EYE-RN BEHAVIORAL HEALTH) to steady your nerves or to get [...] spironolactone 12.5mg daily. * Telephone Encounter - Madison Sheikh Urszula - 09/06/2024 3:16 PM EDT Clinical Concern/Question [...] start of care. Best contact number: Other: [phone] Optimal time of day to reach caller: [...] will receive notification of the communication/outcome via Sokooshart. documented in this encounter Plan of Treatment Upcoming Encounters Date Type Department Care Team (Late st Contact Info) Description 10/25/2024 10:00 AM EDT Office Visit [facility] [place] Nephrology, Bone & Mineral Metabolism [address] [facility], [address] [place] [address] Bryon Brandon MD [address] [place] [address] 10/27/2024 1:40 PM EDT Office Visit [facility] Endocrinology [address] [place] [address] Anne-Marie Kolb, INFORMATICA ARCHITECT [address] [place] [address] 12/23/2024 4:00 PM EDT Office Visit [facility] Medicine Specialties [address], [address] [place] [address] Lavern Shoemaker MD [address] [place] [address] 02/02/2025 8:40 AM EST Office Visit [facility] Internal Medicine [address] 3[address] [place] [address] Alisa Kunz DO [address] [place] [address] documented as of this encounter [...] documented as of this encounter Care Teams Heat Treat Worker Relationship Specialty Start Date End Date Alisa Kunz DO [address] [place] [address] PCP - General Internal Medicine 03/13/21 Kodi Bustos DO [address] [place] [address] Surgeon Cardiothoracic Surgery 11/06/22 Sujit Arriola MD [address] [place] [address] Consulting Physician Pulmonary Disease 11/06/22 Sujit Reyes MD [address] [place] [address] Referring Physician 12/04/22 Patricia Yañez LPN [facility] TCM Nurse 08/25/24 10/17/24 documented as of this encounter
--- OUTSIDE RECORDS SUMMARY | 2024-10-18 14:59 | XMS_ITS | Encounter Summary ---
Author Organization [facility] Address [address] [place] [address] Care Team Providers Care Mechanic General Operational Test Name Role Phone Alisa Kunz DO Primary Care Provider [phone] Kodi Bustos DO Unavailable [phone] Sujit Arriola MD Unavailable [phone] Sujit Reyes MD Unavailable [phone] Patricia Yañez LPN Unavailable Unavailab Zee Lr DO Unavailable [phone] Reason for Visit * Reason Onset Date Comments HCN Clinical Concern/Question 09/03/2024 Pl ease see note... Encounter Details Date Type Department Care Team (Late st Contact Info) Description 09/03/2024 Telephone [facility] Internal Medicine [address], 3rd [place] [address] Alisa Kunz DO [address] [place] [address] HCN Clinical Concern/Question (Please see [...] 09/08/2024 [facility] of Occupat ional Health - [...] in the past 12 m [facility], were you homeless or living in a [...] in the past 12 m [facility], were you homeless or living in a [...] drink first t anselmo in the morning (EYE-PLANNER/SCHEDULER) to steady your nerves or to get rid of a hangover? 0 08/14/2024 CAGE Questionnaire Score 0 025 Utilities Answer Date Recorded In the past 12 months has th [employer], gas, oil, or water [employer] threatened to shut off services in your [...] at all 09/08/2024 11 :19 AM Shashank Barerto Feeling bad about yourself - or that [...] No Risk Indicated 09/15/2024 8:00 AM Sunny Orr RN * If you checked off any [...] Suicidal Behavior (Lifetime) No 8:00 AM EDT Ashley, [place], RN documented as of this encounter Miscellaneous Notes * Telephone Encounter - Mary Guillen - 09/03/2024 11:09 AM EDT Clinical Concern/Question Reason for Call: Patient is returning missed call from community mental health social worker and is asking for a call back. Best contact number: [phone] (mobile) Optimal time of day to reach [...] will receive notification of the communication/outcome via Resource Datahart. documented in this encounter Plan of Treatment Upcoming Encounters Date Type Department Care Team (Late st Contact Info) Description 10/25/2024 10:00 AM EDT Office Visit [facility] Nephrology, Bone & Mineral Metabolism [address] [facility], [address] [place] [address] Bryon Brandon MD [address] [place] [address] 10/27/2024 1:40 PM EDT Office Visit [facility] Endocrinology [address] [place] [address] Anne-Marie Kolb, FUDGER [address] [facility] [address] [place] [address] 12/23/2024 4:00 PM EDT [facility] Medicine Specialties [address]nd [place] [address] Lavern Shoemaker MD [address] [place] [address] 02/02/2025 8:40 AM EST Office Visit [facility] Internal Medicine [address], 3rd [place] [address] Alisa Kunz DO [address] [place] [address] documented as of this encounter [...] documented as of this encounter Care Teams Mechanic General Operational Test Relationship Specialty Start Date End Date Alisa Kunz DO [address] [address] PCP - General Internal Medicine 03/13/21 Kodi Bustos DO [address] [address] Surgeon Cardiothoracic Surgery 11/06/22 Sujit Arriola MD [address] [place] [address] Consulting Physician Pulmonary Disease 11/06/22 Sujit Reyes MD [address] [place] [address] Referring Physician 12/04/22 Patricia Yañez LPN [facility] TCM Nurse 08/25/24 10/17/24 Zee Lazar DO [address] [place] [address] Resident 09/08/24 documented as of this encounter
--- OUTSIDE RECORDS SUMMARY | 2024-10-18 14:59 | XMS_ITS | Encounter Summary ---
Author Organization [facility] Address [address] [place] [address] Care Team Providers Care Mandarin Speaking Nanny Name Role Phone Jackson Malave MD Primary Care Provider [phone] Alisa Kunz DO Primary Care Provider [phone] Anu Sen RN Unavailable [phone] HatLaura navas WASTE SALVAGER Unavailable Unavailable Balwinder Vale Unavailable Unavailable Kodi Bustos DO Unavailable [phone] Sujit Arriola MD Unavailable [phone] HatLaura navas LPN Unavailable Unavailable Sujit Reyes MD Unavailable [phone] Zully Caldwell LPN Unavailable Unavailable HatLaura navas LPN Unavailable Unavailable HatLaura navas LPN Unavailable Unavailable Tanya Powell Unavailable [phone] Sarah Reyes WASTE SALVAGER Unavailable Unavailable Ekaterina Gómez Unavailable Unavailable Zully Caldwell LPN Unavailable Unavailable Ekaterina Gómez Unavailable Unavailable Patricia Yañez WASTE SALVAGER Unavailable Unavailab Zee Lr DO Unavailable [phone] Reason for Visit * Reason Comments Med Refill Encounter Details Date Type Department Care Team (Late st Contact Info) Description 02/12/2021 Refill [facility] Internal Medicine [address] 3rd [place] [address] Jackson Malave MD [address] [place], [place] [id number] Social History Tobacco Use Types Packs/Day Years [...] Description 10/25/2024 10:00 AM EDT Office Visit [facility] Nephrology, Bone & Mineral Metabolism [address] [facility], [address] [place] [address] Bryon Brandon MD [address] [place] [address] 10/27/2024 1:40 PM EDT Office Visit [facility] Endocrinology [address] [place] [address] Anne-Marie Kolb, STRAPPER [address] [place] [address] 12/23/2024 4:00 PM EDT Office Visit [facility] Medicine Specialties [address], [address]nd [place] [address] Lavern Shoemaker MD [address] [place], [place] [address] 02/02/2025 8:40 AM EST Office Visit [facility] Internal Medicine [address], 3rd [place] [address] Alisa Kunz, DO [address] [place] [address] documented as of this encounter [...] documented as of this encounter Care Teams Mandarin Speaking Nanny Relationship Specialty Start Date End Date Jackson Malave MD [address] [place] [address] PCP - General 07/21/20 03/12/21 Alisa Kunz, DO [address] [place] [address] PCP - General Internal Medicine 03/13/21 Anu Sen RN VALUE-BASED TRANSFORMATION PROGRAM [place] Registered Nurse Internal Medicine 08/22/21 09/24/21 Laura Albright LPN [employer] [place] [address] TCM Nurse 08/30/22 09/27/22 Balwinder Vale [address] [place] [address] Community Health Worker Gasser Machine Operator 08/30/22 09/06/22 Kodi Bustos, DO [address] [address] Surgeon Cardiothoracic Surgery 11/06/22 Sujit Arriola MD [address] [place] [address] Consulting Physician Pulmonary Disease 11/06/22 Laura Albright LPN [employer] [place] [address] TCM Nurse 12/02/22 01/01/23 Sujti Reyes MD [address] [place] [address] Referring Physician 12/04/22 Zully Caldwell LPN [employer] [place] [address] TCM Nurse 02/03/23 03/05/23 Laura Albright LPN [employer] [place] [address] TCM Nurse 08/05/23 09/04/23 Laura Albright LPN [employer] [place] [address] TCM Nurse 02/17/24 03/18/24 Tanya Powell [address] [place] [address] [address] [place] [address] Registered Nurse 04/02/24 07/01/24 Sarah Reyes LPN TCM Nurse 05/27/24 06/26/24 Ekateirna Gmóez Brattice Builder Gasser Machine Operator 07/14/24 07/14/24 Zully Caldwell LPN [employer] [place] [address] TCM Nurse 07/16/24 08/15/24 Ekaterina Gómez Brattice Builder Gasser Machine Operator 08/16/24 08/16/24 Patricia Yañez LPN [facility] TCM Nurse 08/25/24 10/17/24 Zee Lazar DO [address] [place] [address] Resident 09/08/24 documented as of this encounter
--- OUTSIDE RECORDS SUMMARY | 2024-10-18 14:59 | XMS_ITS | Encounter Summary ---
Author Organization [facility] Address [address] [place] [address] Care Team Providers Care Weight Training Instructor Name Role Phone Alisa Kunz DO Primary Care Provider Kodi Bustos DO Unavailable [phone] Sujit Arriola MD Unavailable [phone] Sujit Reyes MD Unavailable [phone] Patricia Yañez LPN Unavailable Unavailab Zee Lr DO Unavailable [phone] Encounter Details Date Type Department Care Team (Late st Contact Info) Description 09/06/2024 Telephone [facility] Medicine Specialties [address] [place] [address] [place] [address] Social History Tobacco Use Types Packs/Day Years [...] How often do you attend [facility] or pentecostalism services? 1 to 4 [...] Questionnaire-2 Score 0 09/08/2024 [facility] [place] of Occupat ional Health - Occupational Stress [...] drink first t anselmo in the morning (EYE-RACE AND SPORTS BOOK WRITER) to steady your nerves or to get rid of a hangover? 0 08/14/2024 CAGE Questionnaire Score 0 025 Utilities Answer Date Recorded In the past 12 months has th e [employer], gas, oil, or water company threatened to [...] (Past 1 Month) No 09/08/2024 11:19 AM EDAdalid [place] 6. Suicidal Behavior (Lifetime) No 11:19 AM [...] speak to someone in the meantime CB: [phone] documented in this encounter Plan of Treatment Upcoming Encounters Date Type Department Care Team (Late st Contact Info) Description 10/25/2024 10:00 AM EDT Office Visit [facility] [employer] [place] Nephrology, Bone & Mineral Metabolism [address] [facility], [address] [place] [address] Bryon Brandon MD 800 [place] [address] 10/27/2024 1:40 PM EDT Office Visit [facility] Endocrinology [address] [place] [address] Anne-Marie Kolb L, MEETING COORDINATOR [address] [facility] [address] [place] [address] 12/23/2024 4:00 PM EDT Office Visit [facility] Medicine Specialties [address] [place] [address] Lavern Shoemaker MD [address] [place] [address] 02/02/2025 8:40 AM EST Office Visit [facility] Internal Medicine [address], 3rd [place] [address] Alisa Kunz DO [address] [place] [address] documented as of this encounter [...] documented as of this encounter Care Teams Weight Training Instructor Relationship Specialty Start Date End Date Alisa Kunz DO [address] [place] [address] PCP - General Internal Medicine 03/13/21 Kodi Bustos DO [address] [address] Surgeon Cardiothoracic Surgery 11/06/22 Sujit Arriola MD [address] [place] [address] Consulting Physician Pulmonary Disease 11/06/22 Sujit Reyes MD [address] [place] [address] Referring Physician 12/04/22 Patricia Yañez LPN [facility] TCM Nurse 08/25/24 10/17/24 Zee Lazar DO [address] [place], [place] [address] Resident 09/08/24 documented as of this encounter
--- OUTSIDE RECORDS SUMMARY | 2024-10-18 14:59 | XMS_ITS | Encounter Summary ---
Author Organization [facility] Address [address] [place] [address] Care Team Providers Care Dinking Machine Operator Name Role Phone Alisa Kunz DO Primary Care Provider Kodi Bustos DO Unavailable [phone] Sujit Arriola MD Unavailable [phone] Sujit Reyes MD Unavailable [phone] Patricia Yañez LPN Unavailable Unavailab Zee Lr DO Unavailable [phone] Reason for Visit * Reason Onset Date Comments HCN - Patient Message 09/08/2024 Encounter Details Date Type Department Care Team (Late st Contact Info) Description 09/08/2024 Telephone [facility] Internal Medicine [address] 3rd [place] [address] Alisa Kunz DO [address] [place] [address] HCN - Patient Message Social [...] often do you attend chur ch or islam services? 1 to 4 times per year [...] 0 09/08/2024 [facility] of Occupat ional Health - [...] the past 12 m [facility], were you homeless or living in a [...] the past 12 m [facility], were you homeless or living in a [...] drink first t anselmo in the morning (EYE-COMPUTER NETWORK SUPPORT SPECIALIST) to steady your nerves or to get rid of a hangover? 0 08/14/2024 CAGE Questionnaire Score 0 025 Utilities Answer Date Recorded In the past 12 months has th [employer], gas, oil, or water [employer] threatened to shut off services in your [...] optimal time of day to reach caller: [phone] Note: Please do not reply to this [...] 10/25/2024 10:00 AM EDT Office Visit [facility] Nephrology, Bone & Mineral Metabolism [address] [facility], [address] [place] [address] Bryon Brandon MD [address] [place] [address] 10/27/2024 1:40 PM EDT [facility] Visit [facility] Endocrinology [address] [place] [address] Anne-Marie Kolb, LAN SUPPORT SPECIALIST [address] [facility] [address] [place] [address] 12/23/2024 4:00 PM EDT Office Visit [facility] Medicine Specialties [address] [place] [address] Lavern Shoemaker MD [address] [place], [place] [address] 02/02/2025 8:40 AM EST Office Visit [facility] Internal Medicine [address] 3rd [place] [address] Alisa Kunz DO [address] [facility] [address] [place] [address] documented as of this encounter [...] documented as of this encounter Care Teams Dinking Machine Operator Relationship Specialty Start Date End Date Alisa Kunz DO [address] [facility] [address] [place] [address] PCP - General Internal Medicine 03/13/21 Kodi Bustos DO [address] [address] Surgeon Cardiothoracic Surgery 11/06/22 Sujit Arriola MD [address] [place] [address] Consulting Physician Pulmonary Disease 11/06/22 Sujit Reyes MD [address] [place] [address] Referring Physician 12/04/22 Patricia Yañez LPN [facility] TCM Nurse 08/25/24 10/17/24 Zee Lazar DO [address] [place] [address] Resident 09/08/24 documented as of this encounter
--- OUTSIDE RECORDS SUMMARY | 2024-10-18 14:59 | XMS_ITS | Encounter Summary ---
Author Organization Healthcare Address [address] [place] [address] Care Team Providers Care Mechanical Product Engineer Name Role Phone ZeAlisa willett Torri DO Primary Care Provider [phone] Kodi Bustos DO Unavailable [phone] Sujit Arriola MD Unavailable [phone] Sujit Reyes MD Unavailable [phone] Patricia Yañez LPN Unavailable Unavailab Zee Lr DO Unavailable [phone] Reason for Referral * Consultation (Routine) - Authorized Specialty Diagnoses / Procedures Referred By Contac t Referred To Contact Pulmonary Disease Diagnoses Pleural effusion on right Art Olmos MD [address] [place] [address] Phone: tel: fax: Referral ID Status Reason Start Date Expiration Date Visits Requested Visits Authorized [id number] Authorized Specialty Services Required 09/08/2024 03/10/2026 1 1 Encounter Details Date Type Department Care Team (Late st Contact Info) Description 09/08/2024 Orders Only [facility] Medicine Specialties [address], 2nd [place] [address] Lavern Shoemaker MD [address] [place] [address] Pleural effusion on right (Primary Dx) Social [...] Recorded Patient Health Questionnaire-2 Score 0 09/08/2024 [facility] of Occupat ional Health - Occupational Stress [...] living in a intermediate (including now)? No 09/13/2024 CAGE ASSESSMENT Answer [...] drink first t anselmo in the morning (EYE-SERVICE WORKER) to steady your nerves or to [...] things Not at all 09/08/2024 11:19 AM Shashank Barreto Feeling down, depressed, or hopeless Not at all 09/08/2024 11:19 AM Shashank Barreto Patient Health Questionnaire -2 Score 0 09/08/2024 11:19 AM JANET Shashank Burrows * Question Answer Date of [...] down Not at all 09/08/2024 11:19 AM JANET Shashank Frias Trouble concentrating on thi ngs, [...] all 09/08/2024 11:19 AM JANET Joni Burrows * Question Answer Date of Assessment Author 1. Wish to be (Past 1 Month) No 09/13/2024 8:00 AM EDT Lucia Rosenthal RN 2. Non-Specific Active Suicidal Thoughts (Past 1 Month) No 09/13/2024 8:00 AM EDT Lucia Rosenthal RN 6. Suicidal Behavior (Lifetime) No 09/13/2024 8:00 AM EDT Lucia Rosenthal RN documented as of this encounter Plan of Treatment Upcoming Encounters Date Type Department Care Team (Late st Contact Info) Description 10/25/2024 10:00 AM EDT Office Visit [facility] Nephrology, Bone & Mineral Metabolism [address] [facility], [address] [place] [address] Bryon Brandon MD [address] [place] [address] 10/27/2024 1:40 PM EDT Office Visit [facility] Endocrinology [address] [place] [address] Anne-Marie Kolb L, RAIL FLAW DETECTOR OPERATOR [address] [facility] 125 [place] [address] 12/23/2024 4:00 PM EDT [facility] [address], [address]nd [place] [address] Lavern Shoemaker MD [address] [place], [place] [id number] 02/02/2025 8:40 AM EST Office Visit [facility] Internal Medicine [address], 3rd [place] [address] Alisa Kunz, [address] [place] [address] Scheduled Referrals Name Type Priority Associated Diagnoses [...] as of this encounter Care Teams Mechanical Product Engineer Relationship Specialty Start Date End Date Alisa Kunz DO [address] [place] [address] PCP - General Internal Medicine 03/13/21 Kodi Bustos DO [address] [phone] Surgeon Cardiothoracic Surgery 11/06/22 Sujit Arriola MD [address] [place] [address] Consulting Physician Pulmonary Disease 11/06/22 Sujit Reyes MD [address] [place] [address] Referring Physician 12/04/22 Patricia Yañez LPN [facility] TCM Nurse 08/25/24 10/17/24 Zee Lazar DO [address] [place], [place] [id number] Resident 09/08/24 documented as of this encounter
--- OUTSIDE RECORDS SUMMARY | 2024-10-18 15:00 | XMS_ITS | Encounter Summary ---
Author Organization Healthcare Address [address] [place] [address] Care Team Providers Care Striper Spray Gun Name Role Phone Alisa Kunz DO Primary Care Provider [phone] Kodi Bustos DO Unavailable [phone] Sujit Arriola MD Unavailable [phone] Sujit Reyes MD Unavailable [phone] Patricia Yañez LPN Unavailable Unavailab Zee Lr DO Unavailable [phone] Encounter Details Date Type Department Care Team (Latest Contact Info) Description 10/07/2024 Travel Social History Tobacco Use Types Packs/Day [...] Recorded Patient Health Questionnaire-2 Score 0 09/08/2024 [facility] of Occupat ional [facility] - Occupational Stress Questionnaire [...] min 08/30/2022 Housing Stability Vital Sign Answer Ohng e Recorded In the last 12 months, [...] in a skilled nursing (including now)? No 09/17/2024 CAGE ASSESSMENT Answer [...] drink first t anselmo in the morning (EYE-WIREWORKER) to steady your nerves or to get [...] 10/25/2024 10:00 AM EDT Office Visit [facility] Nephrology, Bone & Mineral Metabolism [address] [facility], [address] [place] [address] Bryon Brandon MD [address] [place] [address] 10/27/2024 1:40 PM EDT Office Visit [facility] Endocrinology [address] [place] [address] Anne-Marie Kolb, MANAGER TRANSFER [address] [facility] [address] [place] [address] 12/23/2024 4:00 PM EDT Office Visit [facility] Medicine Specialties [address], [address] [place] [address] Lavern Shoemaker MD [address] [place] [address] 02/02/2025 8:40 AM EST Office Visit [facility] Internal Medicine [address], 3rd [place] [address] Alisa Kunz DO [address] [facility] [address] [place] [address] documented as of this encounter [...] documented as of this encounter Care Teams Striper Spray Gun Relationship Specialty Start Date End Date Alisa Kunz DO [address] [address] PCP - General Internal Medicine 03/13/21 Kodi Bustos DO [address] [place] [address] Surgeon Cardiothoracic Surgery 11/06/22 Sujit Arriola MD [address] [place] [address] Consulting Physician Pulmonary Disease 11/06/22 Sujit Reyes MD [address] [place] [address] Referring Physician 12/04/22 Patricia Yañez, RESISTOR [facility] TCM Nurse 08/25/24 10/17/24 Zee Lazar DO [address] [place] [address] Resident 09/08/24 documented as of this encounter
--- OUTSIDE RECORDS SUMMARY | 2024-10-18 15:00 | XMS_ITS | Encounter Summary ---
[facility] Address [address] [place] [address] Care Team Providers Care Ec Teacher Name Role Phone Alisa Kunz Primary Care Provider [phone] Encounter Details Date Type Department Care Team [...] Description 10/21/2024 2:15 PM EDT Office Visit [facility] SLEEP MEDICINE [address] [place] [phone] Shannen Horta, PATIENT CARE NURSING ASSISTANT [address] [facility] [address] [place] [address] 12/02/2024 3:30 PM EDT Office Visit [facility] CARDIOLOGY [address] [place] [address] Sujit Reyes MD [address] [facility] [address] [place] [address] 01/19/2025 1:45 PM EST Office Visit [facility] CARDIOLOGY [address] [facility] [address] [place] [address] Naveen Velasquez MD [address] [facility] [address] [place] [address] documented as of this encounter Visit Diagnoses Not on filedocumented in this encounter Care Teams Ec Teacher Relationship Specialty Start Date End Date Alisa Kunz DO [address] [place], [place] [phone] PCP - General Internal Medicine 04/26/21 documented as of this encounter
--- OUTSIDE RECORDS SUMMARY | 2024-10-18 15:00 | XMS_ITS | Encounter Summary ---
Author Organization [facility] Address [address] [place] [address] Care Team Providers Care Demurrage Clerk Name Role Phone ZeAlisa willett Torri DO Primary Care Provider [phone] Kodi Bustos DO Unavailable [phone] Sujit Arriola MD Unavailable [phone] Sujit Reyes MD Unavailable [phone] Zee Lazar DO Unavailable [phone] Encounter Details Date Type Department Care Team (Latest Contact Info) Description 10/18/2024 Travel Social History Tobacco Use Types Packs/Day [...] living in a assisted (including now)? No 09/17/2024 CAGE ASSESSMENT Answer [...] t anselmo in the morning (EYE-DIRECTOR OF ANCILLARY SERVICES) to steady your nerves or to get rid of a hangover? 0 08/14/2024 CAGE Questionnaire Score 0 025 Utilities Answer Date Recorded In the past 12 months has th e [employer], gas, oil, or water [employer] threatened to shut off services in your [...] 10/25/2024 10:00 AM EDT Office Visit [facility] Nephrology, Bone & Mineral Metabolism [address] [facility], [address] [place] [address] Bryon Brandon MD [address] [place] [address] 10/27/2024 1:40 PM EDT Office Visit [facility] Endocrinology [address] [place] [address] Anne-Marie Kolb, COMPUTER SYSTEMS INFORMATION DIRECTOR [address] [facility] [address] [place] [address] 12/23/2024 4:00 PM EDT Office Visit [facility] Medicine Specialties [address], [address]nd [place] [address] Lavern Shoemaker MD [address] [place] [address] 02/02/2025 8:40 AM EST Office Visit [facility] Internal Medicine [address], 3rd [place] [address] Alisa Kunz DO [address] [place] [address] documented as of this encounter [...] documented as of this encounter Care Teams Demurrage Clerk Relationship Specialty Start Date End Date Alisa Kunz DO [address] [place] [address] PCP - General Internal Medicine 03/13/21 Kodi Bustos, [address] [address] Surgeon Cardiothoracic Surgery 11/06/22 Sujit Arriola MD [address] [place] [address] Consulting Physician Pulmonary Disease 11/06/22 Sujit Reyes MD [address] [place] [address] Referring Physician 12/04/22 Zee Lazar DO [address] [place], [place] [phone] Resident 09/08/24 documented as of this encounter
--- OUTSIDE RECORDS SUMMARY | 2024-10-18 15:00 | XMS_ITS | Encounter Summary ---
Author Organization [facility] Address [address] [place] [address] Care Team Providers Care Core Driller Name Role Phone Alisa Kunz DO Primary Care Provider [phone] Kodi Bustos DO Unavailable [phone] Sujit Arriola MD Unavailable [phone] Sujit Reyes MD Unavailable [phone] Patricia Yañez LPN Unavailable Unavailab le Reason for Visit * Reason Onset Date Comments HCN Clinical Concern/Question 08/30/2024 Encounter Details Date Type Department Care Team (Late st Contact Info) Description 08/30/2024 Telephone [facility] Internal Medicine [address], 3rd [place] [address] Alisa Kunz DO [address] [place] [address] HCN Clinical Concern/Question Social History [...] any clubs o r organizations such as evangelical groups, unions, fraternal or athletic groups, or [...] drink first t anselmo in the morning (EYE-CYLINDER HEAD ASSEMBLER) to steady your nerves or to get rid of a hangover? 0 08/14/2024 CAGE Questionnaire Score 0 025 Utilities Answer Date Recorded In the past 12 months has th e [employer], gas, oil, or water [employer] threatened to shut off services in your [...] 08/31/2024 1:01 PM EDT Placed referral for HH since the one in the computer was not sent to [facility]. Faxed order and got confirmation * Telephone Encounter - Sofia Hrenadez - 08/30/2024 2:42 PM EDT Clinical Concern/Question Reason for Call: pt has called [facility] HH today, was told they dont have an order in but have her pcp send order for home health to them. Please call pt if you have any questions. thx Best contact number: [phone] (home) Optimal time of day to reach caller: ANYTIME Additional comments/information from caller: None Note: Please do not reply to this message. Follow-up communication and further actions as a result of this message need to be communicated with the patient directly, if the patient is not active onMyChart. If the patient is active on MyChart, they will receive notification of the communication/outcome via [employer]SK[employer]. documented in this encounter Plan of Treatment Upcoming Encounters Date Type Department Care Team ([facility] st Contact Info) Description 10/25/2024 10:00 AM EDT Office Visit [facility] Nephrology, Bone & Mineral Metabolism [address] [facility], [address] [place] [address] Bryon Brandon MD [address] [place] [address] 10/27/2024 1:40 PM EDT Office Visit [facility] Endocrinology [address] [place] [address] Anne-Marie Kolb L, INTERNET CAFE MANAGER 2[address] [facility] 125 [place] [address] 12/23/2024 4:00 PM EDT [facility] [address]nd [place] [address] Lavern Shoemaker MD [address] [place], [place] [address] 02/02/2025 8:40 AM EST Office Visit [facility] Internal Medicine [address], 3rd [place] [address] Alisa Kunz, [address] [place] [address] documented as of this encounter Visit Diagnoses [...] as of this encounter Care Teams Core Driller Relationship Specialty Start Date End Date Alisa Kunz DO [address] [place] [address] PCP - General Internal Medicine 03/13/21 [place]odi Bustos DO [address] [address] Surgeon Cardiothoracic Surgery 11/06/22 Sujit Arriola MD [address] [place] [address] Consulting Physician Pulmonary Disease 11/06/22 Sujit Ryees MD [address] [place] [address] Referring Physician 12/04/22 Patricia Yañez LPN [facility] TCM Nurse 08/25/24 10/17/24 documented as of this encounter
--- OUTSIDE RECORDS SUMMARY | 2024-10-18 15:00 | XMS_ITS | Encounter Summary ---
Author Organization [facility] Address [address] [place] [address] Care Team Providers Care Cardiovascular Or Nurse Name Role Phone Ailsa Kunz Primary Care Provider [phone] Reason for Visit * Reason Onset Date Comments - CALL BACK 08/31/2024 Encounter Details Date Type Department Care Team (Late st Contact Info) Description 08/31/2024 Telephone [facility] CARDIOLOGY [address] [facility] [address] [place] [address] Naveen Velasquez MD [address] [facility] [address] [place] [id number] - CALL BACK Social History Tobacco Use [...] 9:45 AM EDT Tanya Boyce RN * [place] Suicide Severity Rating Scale (Screener/Recent Self-Report) Question [...] Felipe Relationship: Self Best call back number: [phone] What is the best time to reach [...] Description 10/21/2024 2:15 PM EDT Office Visit [facility] SLEEP MEDICINE [address] [place] [address] Shannen Horta, DATA ACQUISITION TECHNICIAN [address] [place] [address] 12/02/2024 3:30 PM EDT Office Visit [facility] CARDIOLOGY [address] [place] [address] Sujit Reyes MD [address] [place] [address] 01/19/2025 1:45 PM EST Office Visit [facility] CARDIOLOGY [address] [place] [address] Naveen Velasquez MD [address] [place] [address] documented as of this encounter Visit Diagnoses Not on filedocumented in this encounter Care Teams Cardiovascular Or Nurse Relationship Specialty Start Date End Date Alisa Kunz DO [address] [place] [address] PCP - General Internal Medicine 04/26/21 documented as of this encounter
--- OUTSIDE RECORDS SUMMARY | 2024-10-18 15:00 | XMS_ITS | Encounter Summary ---
Author Organization Healthcare Address [address] [place] [address] Care Team Providers Care Tube Heater Name Role Phone Alisa Kunz DO Primary Care Provider [phone] [place] Bustos DO Unavailable [phone] Sujit Arriola MD Unavailable [phone] Sujit Reyes MD Unavailable [phone] Patricia Yañez LPN Unavailable Unavailab Zee Lr DO Unavailable [phone] Encounter Details Date Type Department Care Team (Latest Contact Info) Description 10/14/2024 Travel Social History Tobacco Use Types Packs/Day [...] How often do you attend chur or yarsanism services? 1 to 4 times per year [...] Recorded Patient Health Questionnaire-2 Score 0 09/08/2024 [facility] Occupat ional Health - Occupational [...] any time in the past 12 m [facility], were you homeless or living [...] any time in the past 12 m [facility], were you homeless or living [...] first t anselmo in the morning (EYE-VEHICLE DYNAMICS ENGINEER) to steady your nerves or to [...] more times a week 10/14/2024 11:04 AM JANET Rozina Shell Q2: How many drinks containing alcohol do you have on a typical day when you are drinking? 1 or 2 10/14/2024 11:04 AM EDT Rozina Power Q3: How often do you have six or more drinks on one occasion? Never 10/14/2024 11:04 AM Rozina Clarke documented as of this encounter Plan of Treatment Upcoming Encounters Date Type Department Care Team (Late st Contact Info) Description 10/25/2024 10:00 AM EDT Office Visit [facility] Nephrology, Bone & Mineral Metabolism [address] [facility], [address] [place] [address] Bryon Brandon MD [address] [place] [address] 10/27/2024 1:40 PM EDT Office Visit [facility] Endocrinology [address] [place] [address] Anne-Marie Kolb, MARKETING SALES REPRESENTATIVE [address] [facility] [address] [place] [address] 12/23/2024 4:00 PM EDT Office Visit [facility] Medicine Specialties [address], [address]nd [place] [address] Lavern Shoemaker MD [address] [place], [place] [phone] 02/02/2025 8:40 AM EST Office Visit [facility] Internal Medicine [address], 3rd [place] [address] Alisa Kunz DO [address] [facility] [address] [place] [address] documented as of this encounter [...] documented as of this encounter Care Teams Tube Heater Relationship Specialty Start Date End Date Alisa Kunz DO [address] [facility] [address] [place] [address] PCP - General Internal Medicine 03/13/21 [place] Bustos DO [address] [address] Surgeon Cardiothoracic Surgery 11/06/22 Sujit Arriola MD [address] [place] [address] Consulting Physician Pulmonary Disease 11/06/22 Sujit Reyes MD [address] [place] [address] Referring Physician 12/04/22 Patricia Yañez LPN [facility] TCM Nurse 08/25/24 10/17/24 Zee Lazar DO [address] [place] [address] Resident 09/08/24 documented as of this encounter
--- OUTSIDE RECORDS SUMMARY | 2024-10-18 15:00 | XMS_ITS | Encounter Summary ---
Author Organization Healthcare Address [address] [place] [address] Care Team Providers Care Composition Teacher Name Role Phone Alisa Kunz DO Primary Care Provider [phone] Kodi Bustos DO Unavailable [phone] Sujit Arriola MD Unavailable [phone] Sujit Reyes MD Unavailable [phone] Patricia Yañez LPN Unavailable Unavailab Zee Lr DO Unavailable [phone] Reason for Visit * Reason Onset Date Comments HCN - Patient Message 10/11/2024 questions Encounter Details Date Type Department Care Team (Late st Contact Info) Description 10/11/2024 [facility]phone [facility] [address] [place] [address] Chris Pepe MD [address] [place] [address] HCN - Patient Message (questions) Social History Tobacco Use Types Packs/Day Years [...] Recorded Patient Health Questionnaire-2 Score 0 09/08/2024 [facility] of Occupat ional Health - [...] drink first t anselmo in the morning (EYE-ELECTRON BEAM OPERATOR) to steady your nerves or to get rid of a hangover? 0 08/14/2024 CAGE Questionnaire Score 0 025 Utilities Answer Date Recorded In the past 12 months has th e [employer], gas, oil, or water [employer] threatened to shut off services in your [...] encounter Miscellaneous Notes * Telephone Encounter - Britt Thompson Sanjuana - 10/11/2024 8:19 AM EDT Patient Phone Message Reason for Call: Pt requesting a return call regarding follow up questions she has from last . Best contact number and optimal time of day to reach caller: [phone] Note: Please do not reply to this [...] Description 10/25/2024 10:00 AM EDT Office Visit [facility] Nephrology, Bone & Mineral Metabolism [address] [facility], [address] [place] [address] Bryon Brandon MD 800 [place] [address] 10/27/2024 1:40 PM EDT [facility] [address] [place] [address] Anne-Marie Kolb L, SCHEDULER MAINTENANCE [address] [facility] 125 [place] [address] 12/23/2024 4:00 PM EDT [facility] [address] [place] [address] Lavern Shoemaker MD 800 [place], [place] [id number] 02/02/2025 8:40 AM EST Office Visit [facility] Internal Medicine [address], 3rd [place] [address] Alisa Kunz, DO [address] [place] [address] documented [...] documented as of this encounter Care Teams Composition Teacher Relationship Specialty Start Date End Date Alisa Kunz DO [address] [place] [address] PCP - General Internal Medicine 03/13/21 [place]odi Bustos, [address] [address] Surgeon Cardiothoracic Surgery 11/06/22 Sujit Arriola MD [address] [place] [address] Consulting Physician Pulmonary Disease 11/06/22 Sujit Reyes MD [address] [place] [address] Referring Physician 12/04/22 Patricia Yañez LPN [facility] TCM Nurse 08/25/24 10/17/24 Zee Lazar DO 800 [place], [place] [phone] Resident 09/08/24 documented as of this encounter
--- OUTSIDE RECORDS SUMMARY | 2024-10-18 15:00 | XMS_ITS | Encounter Summary ---
Author Organization [facility] ystem Address [address] [place] [address] Care Team Providers Care Shovel Operator Name Role Phone Alisa Kunz Primary Care Provider [phone] Reason for Visit * Reason Onset Date Comments DR VELASQUEZ -CARDIOVERSION 07/30/2024 Encounter Details Date Type Department Care Team (Late st Contact Info) Description 07/30/[address] [facility] CARDIOLOGY [address] [facility] [address] [place] [address] Naveen Velasquez MD 17[address] [facility] [address] [place] [id number] VELASUQEZ -CARDIOVERSION Social History Tobacco Use Types Packs/Day [...] going to have an EKG gone at [facility] today for rhythm determination. EKG order faxed to [phone]. Her records from are on your desk [...] Felipe Relationship: Self Best call back number: [phone] What was the call regarding: PT CALLED [...] Felipe Relationship: Self Best call back number: [phone] What is the best time to reach [...] Description 10/21/2024 2:15 PM EDT Office Visit [facility] SLEEP MEDICINE [address] [place] [phone] Shannen Horta, BABY COUNSELOR [address] [facility] [address] [place] [address] 12/02/2024 3:30 PM EDT Office Visit [facility] CARDIOLOGY [address] [place] [address] [place] [address] Sujit Reyes MD [address] [facility] [address] [place], [place] [address] 01/19/2025 1:45 PM EST Office Visit [facility] CARDIOLOGY [address] [facility] [address] [place] [phone] Naveen Velasquez MD [address] [facility] [address] [place], [place] [id number] Scheduled Orders Name Type Priority Associated Diagnoses Orde r Schedule ECG 12 Lead ECG Routine Paroxysmal atrial fibrillation Ordered: 08/30/2024 documented as of this encounter Visit Diagnoses Diagnosis Paroxysmal atrial fibrillation- Primary Atrial fibrillation documented in this encounter Care Teams Shovel Operator Relationship Specialty Start Date End Date Alisa Kunz DO [address] [place], [place] [id number] PCP - General Internal Medicine 04/26/21 documented as of this encounter
--- OUTSIDE RECORDS SUMMARY | 2024-10-18 15:00 | XMS_ITS | Encounter Summary ---
Author Organization [facility] Address [address] [place] [address] Care Team Providers Care Taper/Finisher Name Role Phone Alisa Kunz DO Primary Care Provider Kodi Bustos DO Unavailable [phone] Sujit Arriola MD Unavailable [phone] Sujit Reyes MD Unavailable [phone] Zee Lazar DO Unavailable [phone] Reason for Visit * Reason Comments Med Refill Encounter Details Date Type Department Care Team (Late st Contact Info) Description 10/18/2024 Refill [facility] Internal Medicine [address], [address] [place] [address] Alisa Kunz DO [address] [place] [address] Social History Tobacco Use Types [...] drink first t anselmo in the morning (EYE-INSURANCE ACCOUNT ASSISTANT) to steady your nerves or to [...] 10/25/2024 10:00 AM EDT Office Visit [facility]ph[facility], Bone & Mineral Metabolism [address] [facility], [address] [place] [address] Bryon Brandon MD [address] [place] [address] 10/27/2024 1:40 PM EDT Office Visit [facility] Endocrinology [address] [place] [address] Anne-Marie Kolb, PROTECTION CONSULTANT [address] [place] [address] 12/23/2024 4:00 PM EDT Office Visit [facility] Medicine Special[facility] [address], [address]nd [place] [address] Lavern Shoemaker MD 800 [place] [address] 02/02/2025 8:40 AM EST Office Visit [facility] Internal Medicine [address], 3rd [place] [address] Alisa Kunz DO [address] [place] [address] documented as of this encounter [...] documented as of this encounter Care Teams Taper/Finisher Relationship Specialty Start Date End Date Alisa Kunz DO [address] [place] [address] PCP - General Internal Medicine 03/13/21 Kodi Bustos DO [address] [place] [address] Surgeon Cardiothoracic Surgery 11/06/22 Sujit Arriola MD [address] [place] [address] Consulting Physician Pulmonary Disease 11/06/22 Sujit Reyes MD [address] [facility] [address] [place] [address] Referring Physician 12/04/22 Zee Lazar DO [address] [place], [place] [address] Resident 09/08/24 documented as of this encounter
--- OUTSIDE RECORDS SUMMARY | 2024-10-18 15:00 | XMS_ITS | Encounter Summary ---
Author Organization [facility] ystem Address [address] [place] [address] Care Team Providers Care On Site Soil Evaluator Name Role Phone Alisa Kunz Primary Care Provider [phone] Encounter Details Date Type Department Care Team (Latest Contact Info) Description 08/26/2024 Anticoagulation Visit [facility] [address] [facility] [address] [place] [address] Yancy Viveros, Soup Mixer Left ventricular apical thrombus (Primary Dx) Social [...] this encounter Progress Notes * Yancy Viveros, Soup Mixer - 08/26/2024 2:06 PM EDT [facility] Progress Note Patient Demographics Method of INR reporting: textmetix Home Monitor SN [id number] Estimated OOP Cost: Indication: Left Ventricular Atypical Thrombus (~2012) Referring Provider Nanette Pryor APRN Reason patient is not on a DOAC: Goal INR: 2-3 Warfarin Start Date ~02/12/24 Reason patient is not on home monitor: [id number]: Planned Duration of Therapy Indefinite Relevant medical [...] Verbal release: Signed 03/05/24 Preferred contact number: [phone] Alternative contact number(s): [phone] (Doron) [phone] (Ruthie) [phone] (Madyson) Patient Appropriate for WarfNoCall ? No [...] Test strips on hand: 8 Barcode number: [id number] Test strip LOT: [id number] EXP: 03/2026 Serial number: SN21 [id number] Supplies billing code used: last 08/04/24] - Next must be on or after 09/01/24 Transfer Tube Lot number: [id number] Safety Lancets: Lot: Exp: Billing: bill must be completed every 4th encounter that falls outside of 28 days from last HM visit PLEASE REFER TO ANTICOAGULATION TRAINING POWERPOINT FOR BILLING. Needs to use in clinic remote appointment for encounter. Yancy Viveros CPhT, RPhT 10:24 EDT 08/27/2024 documented in this encounter Plan of Treatment Upcoming Encounters Date Type Department Care Team (Late st Contact Info) Description 10/21/2024 2:15 PM EDT Office Visit [facility] SLEEP MEDICINE [address] [facility] [address] Shannen Horta, PHYSICIAN PRACTICE MANAGER [address] [facility] [address] [place] [address] 12/02/2024 3:30 PM EDT Office Visit [facility] CARDIOLOGY [address] [place] [place] [address] Sujit Reyes MD [address] [facility] [address] [place] [address] 01/19/2025 1:45 PM EST Office Visit [facility] CARDIOLOGY [address] [facility] [address] [place] [address] Naveen Velasquez MD [address] [facility] [address] [place] [address] documented as of this encounter Visit Diagnoses Diagnosis Left ventricular apical thrombus- Primary documented in this encounter Care Teams On Site Soil Evaluator Relationship Specialty Start Date End Date Alisa Kunz DO [address] [place] [address] PCP - General Internal Medicine 04/26/21 documented as of this encounter
--- OUTSIDE RECORDS SUMMARY | 2024-10-18 15:00 | XMS_ITS | Encounter Summary ---
Author Organization [facility] Address [address] [place] [address] Care Team Providers Care Nuclear Monitoring Technician Name Role Phone Alisa Kunz DO Primary Care Provider Kodi Bustos DO Unavailable [phone] Sujit Arriola MD Unavailable [phone] Sujit Reyes MD Unavailable [phone] Patricia Yañez LPN Unavailable Unavailab Zee Lr DO Unavailable [phone] Encounter Details Date Type Department Care Team (Late st Contact Info) Description 09/02/2024 Telephone [facility] Internal Medicine [address], 3rd [place] [address] Alisa Kunz DO [address] [place] [address] Social History Tobacco Use Types [...] Recorded Patient Health Questionnaire-2 Score 0 09/08/2024 [facility] [...] in the past 12 m [facility], were you homeless or [...] in the past 12 m [facility], were you homeless or [...] drink first t anselmo in the morning (EYE-CARD CHECKER) to steady your nerves or to get rid of a hangover? 0 08/14/2024 CAGE Questionnaire Score 0 025 Utilities Answer Date Recorded In the past 12 months has th [employer], gas, oil, or water [employer] threatened to shut off services in your [...] EDT Thank you! * Telephone Encounter - Maria De Jesus Sonam Magallanes - 09/02/2024 12:41 PM EDT Clinical Concern/Question Reason for Call: Cece from [facility] calling to let PCP they are starting the patient on Friday and wanted her to be aware. Stated if you have any questions to call back at [phone]. Thank you! Best contact number: [phone] Optimal time of day to reach caller: ANYTIME Additional comments/information from caller: None Note: Please do not reply to this message. Follow-up communication and further actions as a result of this message need to be communicated with the patient directly, if the patient is not active onMyChart. If the patient is active on MyChart, they will receive notification of the communication/outcome via Startisthart. documented in this encounter Plan of Treatment Upcoming Encounters Date Type Department Care Team (Late st Contact Info) Description 10/25/2024 10:00 AM EDT Office Visit [facility] Nephrology, Bone & Mineral Metabolism [address] [facility], [address] [place] [address] Bryon Brandon MD [address] [place] [address] 10/27/2024 1:40 PM EDT Office Visit [facility] Endocrinology [address] [place] [address] Anne-Marie Kolb, SR. PAYROLL PROCESSOR [address] [facility] [address] [place] [address] 12/23/2024 4:00 PM EDT Office Visit [facility] Medicine Specialties [address], [address]nd [place] [address] Lavern Shoemaker MD [address] [place] [address] 02/02/2025 8:40 AM EST Office Visit [facility] Internal Medicine [address], 3rd [place] [address] Alisa Kunz DO [address] [place] [address] documented as of this encounter [...] documented as of this encounter Care Teams Nuclear Monitoring Technician Relationship Specialty Start Date End Date Alisa Kunz DO [address] [address] PCP - General Internal Medicine 03/13/21 Kodi Bustos DO [address] [place] [address] Surgeon Cardiothoracic Surgery 11/06/22 Sujit Arriola MD [address] [place] [address] Consulting Physician Pulmonary Disease 11/06/22 Sujit Reyes MD [address] [place] [address] Referring Physician 12/04/22 Patricia Yañez LPN [facility] TCM Nurse 08/25/24 10/17/24 Zee Lazar DO [address] [place] [address] Resident 09/08/24 documented as of this encounter
--- OUTSIDE RECORDS SUMMARY | 2024-10-18 15:00 | XMS_ITS | Encounter Summary ---
Author Organization [facility] Address [address] [place] [address] Care Team Providers Care Computer Technician Name Role Phone ZeNitin willettgricel Wild DO Primary Care Provider Kodi Bustos DO Unavailable [phone] Sujit Arriola MD Unavailable [phone] Sujit Reyes MD Unavailable [phone] Patricia Yañez BLOCK BREAKER Unavailable Unavailab Zee Lr DO Unavailable [phone] Encounter Details Date Type Department Care Team (Late st Contact Info) Description 09/02/2024 Telephone [facility] Endocrinology [address] [place] [address] Anne-Marie Kolb L, CERTIFIED INCOME TAX PREPARER [address] [facility] [address] [place] [address] Social History Tobacco Use Types [...] often do you attend chur ch or moravian services? 1 to 4 times [...] Health Questionnaire-2 Score 0 09/08/2024 [facility] - Occupational [...] any time in the past 12 m [facility], were you homeless or living in [...] any time in the past 12 m [facility], were you homeless or living in [...] drink first t anselmo in the morning (EYE-SOLVENT PROCESS EXTRACTOR OPERATOR) to steady your nerves or to get rid of a hangover? 0 08/14/2024 CAGE Questionnaire Score 0 025 Utilities Answer Date Recorded In the past 12 months has th [email or web address], gas, oil, or water [employer] threatened to shut off services in your [...] Description 10/25/2024 10:00 AM EDT Office Visit [facility] Nephrology, Bone & Mineral Metabolism [address] [facility], [address] [place] [address] Bryon Brandon MD [address] [place] [address] 10/27/2024 1:40 PM EDT [facility] [place] [address] Anne-Marie Kolb, CERTIFIED INCOME TAX PREPARER [address] [place] [address] 12/23/2024 4:00 PM EDT Office Visit [facility] Medicine Specialties [address] [place] [address] Lavern Shoemaker MD [address] [place] [id number] 02/02/2025 8:40 AM EST Office Visit [facility] Internal Medicine [address], [address] [place] [address] Alisa Kunz DO [address] [facility] [address] [place] [address] documented as of this encounter [...] as of this encounter Care Teams Computer Technician Relationship Specialty Start Date End Date Alisa Kunz DO [address] [place] [address] PCP - General Internal Medicine 03/13/21 Kodi Bustos DO [address] [place] [phone] Surgeon Cardiothoracic Surgery 11/06/22 Sujit Arriola MD [address] [place] [address] Consulting Physician Pulmonary Disease 11/06/22 Sujit Reyes MD [address] [place] [address] Referring Physician 12/04/22 Patricia Yañez LPN [facility] TCM Nurse 08/25/24 10/17/24 Zee Lazar DO [address] [place] [address] Resident 09/08/24 documented as of this encounter
--- OUTSIDE RECORDS SUMMARY | 2024-10-18 15:00 | XMS_ITS | Encounter Summary ---
Author Organization [facility] Address [address] [place] [address] Care Team Providers Care Learning Disabilities Specialist Name Role Phone ZeNitin willettgricel Wild DO Primary Care Provider [phone] Kodi Bustos DO Unavailable [phone] Sujit Arriola MD Unavailable [phone] Sujit Reyes MD Unavailable [phone] Patricia Yañez INTEGRATED CIRCUITS INSPECTOR Unavailable Unavailab Zee Lr DO Unavailable [phone] Encounter Details Date Type Department Care Team (Late st Contact Info) Description 09/03/2024 Telephone [facility] Endocrinology [address] [place] [address] Anne-Marie Kolb L, LEAD RUBY ON RAILS DEVELOPER [address] [facility] [address] [place] [address] Social History Tobacco Use Types [...] often do you attend chur ch or latter-day services? 1 to 4 times [...] Questionnaire-2 Score 0 09/08/2024 [facility] - [...] drink first t anselmo in the morning (EYE-HERB DOCTOR) to steady your nerves or to get rid of a hangover? 0 08/14/2024 CAGE Questionnaire Score 0 025 Utilities Answer Date Recorded In the past 12 months has th [employer], gas, oil, or water [employer] threatened to shut off services in your [...] she has been taking a supplement called Pixability with Cinanamon and Tumeric and other ingredients. [...] Nephrology, Bone & Mineral Metabolism [address] [facility], [address] [place] [address] Bryon Brandon MD [address] [place] [address] 10/27/2024 1:40 PM EDT Office Visit [facility] Endocrinology [address] [place] [address] Anne-Marie Kolb, LEAD RUBY ON RAILS DEVELOPER [address] [place] [address] 12/23/2024 4:00 PM EDT Office Visit [facility] [address], [address]nd [place] [address] Lavern Shoemaker MD [address] [place], [place] [phone] 02/02/2025 8:40 AM EST Office Visit [facility] Internal Medicine [address], 3rd [place] [address] Alisa Kunz DO [address] [facility] [address] [place] [address] documented as of this encounter [...] documented as of this encounter Care Teams Learning Disabilities Specialist Relationship Specialty Start Date End Date Alisa Kunz DO [address] [facility] [address] [place] [address] PCP - General Internal Medicine 03/13/21 Kodi Bustos DO [address] [place] [phone] Surgeon Cardiothoracic Surgery 11/06/22 Sujit Arriola MD [address] [place] [address] Consulting Physician Pulmonary Disease 11/06/22 Sujit Reyes MD [address] [place] [address] Referring Physician 12/04/22 Patricia Yañez LPN [facility] TCM Nurse 08/25/24 10/17/24 Zee Lazar DO [address] [place] [address] Resident 09/08/24 documented as of this encounter
--- OUTSIDE RECORDS SUMMARY | 2024-10-18 15:00 | XMS_ITS | Encounter Summary ---
Author Organization [facility] Address [address] [place] [address] Care Team Providers Care Masonry Installer Name Role Phone Alisa Kunz DO Primary Care Provider Kodi Bustos DO Unavailable [phone] Sujit Arriola MD Unavailable [phone] Sujit Reyes MD Unavailable [phone] Zee Lazar DO Unavailable [phone] Encounter Details Date Type Department Care Team (Late st Contact Info) Description 10/18/2024 Telephone [facility] Internal Medicine [address], [address] [place] [address] Alisa Kunz DO [address] [place] [address] Social History Tobacco Use Types [...] Recorded Patient Health Questionnaire-2 Score 0 09/08/2024 [facility] of Occupat ional Health [...] drink first t anselmo in the morning (EYE-TAPE FASTENER MACHINE OPERATOR) to steady your nerves or to get rid of a hangover? 0 08/14/2024 CAGE Questionnaire Score 0 025 Utilities Answer Date Recorded In the past 12 months has th [employer], gas, oil, or water company threatened to [...] Telephone Encounter - Alisa Kunz DO - 10/18/2024 10:51 AM EDT It marked her as a no-show: any way we can connect her with IT just to see if we can troubleshoot what happened? * Telephone Encounter - Alisa Kunz DO - 10/18/2024 10:50 AM EDT It never connected on my end, I'm not sure what happened- I'll give her a call later after clinic. * Telephone Encounter - Madison Sheikh - 10/18/2024 10:07 AM EDT Clinical Concern/Question Reason for Call: Pt requesting a call back from nurse. Pt was on for a Telehealth this morning and states PCP never connected. She logged on before 730 and stayed on until after 8. Best contact number: [phone] (mobile) Optimal time of day to reach caller: ANYTIME Additional comments/information from caller: THOMPSON Note: Please do not reply to this [...] Description 10/25/2024 10:00 AM EDT Office Visit [facility] Nephrology, Bone & Mineral Metabolism [address] [facility], [address] [place] [address] Bryon Brandon MD [address] [place] [address] 10/27/2024 1:40 PM EDT Office Visit [facility] Endocrinology [address] [place] [address] Anne-Marie Kolb, CLIP RIVETER [address] [facility] [address] [place] [address] 12/23/2024 4:00 PM EDT Office Visit [facility] Medicine [facility] [address] [place] [address] Lavern Shoemaker MD [address] [place] [address] 02/02/2025 8:40 AM EST Office Visit [facility] Internal Medicine [address], 3[address] [place] [address] Alisa Kunz DO [address] [place] [address] documented as of this encounter [...] documented as of this encounter Care Teams Masonry Installer Relationship Specialty Start Date End Date Alisa Kunz DO [address] [place] [address] PCP - General Internal Medicine 03/13/21 Kodi Bustos DO [address] [address] Surgeon Cardiothoracic Surgery 11/06/22 Sujit Arriola MD [address] [place] [address] Consulting Physician Pulmonary Disease 11/06/22 Sujit Reyes MD [address] [place] [address] Referring Physician 12/04/22 Zee Lazar DO [address] [place], [place] [phone] Resident 09/08/24 documented as of this encounter
--- OUTSIDE RECORDS SUMMARY | 2024-10-18 15:00 | XMS_ITS | Encounter Summary ---
Author Organization Healthcare Address [address] [place] [address] Care Team Providers Care Logistics Team Lead Name Role Phone Alisa Kunz DO Primary Care Provider [phone] Kodi Bustos DO Unavailable [phone] Sujit Arriola MD Unavailable [phone] Sujit Reyes MD Unavailable [phone] Patricia Yañez LPN Unavailable Unavailab Zee Lr DO Unavailable [phone] Encounter Details Date Type Department Care Team (Late st Contact Info) Description 10/14/2024 Results Follow-Up [facility] Medicine Specialties [address], [address] [place] [address] Cristian Zimmer MD [address] [place] [address] Social History Tobacco Use [...] often do you attend chur ch or synagogue services? 1 to 4 times [...] 0 09/08/2024 [facility] - Occupational Stress Questionnaire Answer Date [...] drink first t anselmo in the morning (EYE-ASSISTANT HVAC MECHANIC) to steady your nerves or to get rid of a hangover? 0 08/14/2024 CAGE Questionnaire Score 0 025 Utilities Answer Date Recorded In the past 12 months has th e [employer], gas, oil, or water company threatened to [...] of Assessment Author 4 10/14/2024 11:04 AM Rozina Chan * Question Answer Date of Assessment Author [...] E [facility], [address] [place] [address] Bryon Brandon MD [address] [place] [address] 10/27/2024 1:40 PM EDT Office Visit [facility] Endocrinology [address] [place] [phone] Anne-Marie Kolb, HOUSING MANAGEMENT OFFICER [address] [facility] [address] [place] [address] 12/23/2024 4:00 PM EDT Office Visit [facility] Medicine Specialties [address] [place] [phone] Lavern Shoemaker MD [address] [place], [place] [id number] 02/02/2025 8:40 AM EST Office Visit [facility] Internal Medicine [address], 3rd [place] [address] Alisa Kunz DO [address] [facility] [address] [place] [address] documented as of this [...] as of this encounter Care Teams Logistics Team Lead Relationship Specialty Start Date End Date Alisa Kunz DO [address] [place] [address] PCP - General Internal Medicine 03/13/21 Kodi Bustos DO [address] [phone] Surgeon Cardiothoracic Surgery 11/06/22 Sujit Arriola MD [address] [facility] [address] [place] [address] Consulting Physician Pulmonary Disease 11/06/22 Sujit Reyes MD [address] [place] [address] Referring Physician 12/04/22 Patricia Yañez LPN [facility] TCM Nurse 08/25/24 10/17/24 Zee Lazar DO [address] [place], [place] [phone] Resident 09/08/24 documented as of this encounter
--- OUTSIDE RECORDS SUMMARY | 2024-10-18 15:00 | XMS_ITS | Encounter Summary ---
Author Organization [facility] Address [address] [place] [address] Care Team Providers Care Obstetrics Gyn Name Role Phone Alisa Kunz DO Primary Care Provider [phone] Kodi Bustos DO Unavailable [phone] Sujit Arriola MD Unavailable [phone] Sujit Reyes MD Unavailable [phone] Patricia Yañez LPN Unavailable Unavailab le [...] Pleural effusion Alisa Kunz DO [address] [place] [address] Phone: tel: fax: Referral ID Status Reason Start Date Expiration Date V isits Requested Visits Authorized [id number] Closed Specialty Services Required 08/31/2024 03/02/[phone] Encounter Details Date Type Department Care Team (Late st Contact Info) Description 08/31/2024 Orders Only [facility] Internal Medicine [address]rd [place] [address] Nitin Kunzista Torri, [address] [place] [address] At high risk for falls [...] Recorded Patient Health Questionnaire-2 Score 0 08/04/2024 [facility] - Occupational Stress Questionnaire Answer Date [...] drink first t naselmo in the morning (EYE-MOBILE HOME INSTALLER) to steady your nerves or to [...] [facility], [address] [place] [address] Bryon Brandon MD [address] [place] [address] 10/27/2024 1:40 PM EDT Office Visit [facility] Endocrinology [address] [place] [phone] Anne-Marie Kolb L, GRAIN FARMER [address] [facility] [address] [place] [address] 12/23/2024 4:00 PM EDT Office Visit [facility] Medicine Specialties [address] [place] [address] Lavern Shoemaker MD [address] [place], [place] [id number] 02/02/2025 8:40 AM EST Office Visit [facility] Internal Medicine [address] 3rd [place] [address] Alisa Kunz, [address] [place] [address] Scheduled Referrals Name Type Priority [...] documented as of this encounter Care Teams Obstetrics Gyn Relationship Specialty Start Date End Date Alisa Kunz DO [address] [place] [address] PCP - General Internal Medicine 03/13/21 Kodi Bustos DO [address] [place] [address] Surgeon Cardiothoracic Surgery 11/06/22 Sujit Arriola MD [address] [place] [address] Consulting Physician Pulmonary Disease 11/06/22 Sujit Reyes MD [address] [place] [address] Referring Physician 12/04/22 Patricia Yañez LPN [facility] TCM Nurse 08/25/24 10/17/24 documented as of this encounter
--- OUTSIDE RECORDS SUMMARY | 2024-10-18 15:01 | XMS_ITS | Encounter Summary ---
Author Organization [facility] Address [address] [place] [address] Care Team Providers Care Cook Italian Style Food Name Role Phone Alisa Kunz Primary Care Provider [phone] Encounter Details Date Type Department Care Team (Late st Contact Info) Description 09/06/2024 Documentation [facility] C[facility]IOLOGY [address] [facility] [address] [place] [address] Ekaterina Rand PA [address] [facility] [address] [place] [address] Social History Tobacco Use Types Packs/Day Years [...] us know that she was admitted at [facility] 08/14/2024 through 08/24/2024 for acute on chronic [...] first diagonal, SVG to second diagonal, SHAR [place] metal stenting of the ostium of the SVG to second diagonal, Rotational atherectomy/PTCA ofRCA and SVG to second diagonal in-stent. PTCRA/stenting of proximal RCA in-stent restenosis and rotational atherectomy/PTCA of SVG to seconddiagonal. Brachy therapy for in-stent restenosis of proximal dominant RCA, 04/16/2001, LVEF (65%). [facility]: Dr. Thakkar for acute NM, 01/10/2007: Normal LV function and wall motion, Patent SVG to second diagonal, Patent SHEEHAN graft to LAD, 50% ostial stenosis of SVG to first diagonal, JANA Taxus stenting of mid RCA stenosis. Mild reversible anteroischemia - Cardiac SPECT (scan date ?), LVEF (77%). [facility], May 2011, [facility], reportedly revealed no disease (data deficit) in setting of diabetic ketoacidosis associated with acute respiratory failure requiring mechanical ventilation x 5 days. Echocardiogram 04/12/16: LVEF 70%, mild MR, AV sclerosis Myocardial perfusion study 02/17/2017: Wnl, EF 70% Echo, 05/18/21, EF 60%, Mild MS [facility] PTCA RCA ISR: Patent Grafts. [...] to moderate AI. Mild MS. Admission at [facility] 08/14 - 08/24/2024: For acute on chronic [...] block SJ PPM - GFT CVA 04/27 [facility], outpt monitor demonstrated Afib 40% carotid [...] Description 10/21/2024 2:15 PM EDT Office Visit [facility] SLEEP MEDICINE [address] [place] [phone] Shannen Horta, PRECIPITATION EQUIPMENT TENDER [address] [place] [address] 12/02/2024 3:30 PM EDT Office Visit [facility] [address] [facility] [place] [address] Sujit Reyes MD [address] [place] [address] 01/19/2025 1:45 PM EST Office Visit [facility] [address] [facility] [address] [place] [phone] Naveen Velasquez MD [address] [place], [place] [phone] documented as of this encounter Visit Diagnoses Not on filedocumented in this encounter Care Teams Cook Italian Style Food Relationship Specialty Start Date End Date Alisa Kunz DO [address] [place], [place] [phone] PCP - General Internal Medicine 04/26/21 documented as of this encounter
--- OUTSIDE RECORDS SUMMARY | 2024-10-18 15:01 | XMS_ITS | Clinical Summary ---
[facility] Address [address] [place] [address] Care Team Providers Care Vb Net Programmer Name Role Phone Alisa Kunz Primary Care Provider [phone] Allergies Active Allergy Reactions Criticality Noted Date [...] MCG/INH inhaler Inhale 1 puff Daily. 07/19/19 22 Active gabapentin (NEURONTIN) 100 MG capsule Take [...] Daily. 90 tablet 3 12/08/19 24 Active Insulin Lispro (humaLOG) 100 UNIT/ML injection Inject [...] GM chewable tablet Chew 4 tablets. 11/24/19 24 Active glucagon (GLUCAGEN) 1 MG injection Inject [...] HAD TO TAKE THIS YET., Reported on 10/12/2024 acetaminophen (TYLENOL) 500 MG tablet Take 2 tablets by mouth Every 6 (Six) Hours As Needed. Active spironolacton e (ALDACTONE) 25 MG tablet Take 0.5 tablets by mouth Daily. 07/21/19 Active ezetimibe (ZETIA) 10 MG tablet TAKE 1 TABLET DAILY 90 tablet 3 09/07/19 Active Additional Information Patient taking differently:10 mg OralNightly, Reported on 10/12/2024 mycophenolate (CELLCEPT) 500 MG tablet Take 2 tablets by mouth 2 (Two) Times a Day. PT. HAS NOT STARTED THIS YET. Active warfarin (COUMADIN) 5 MG tablet TAKE 1/2 TO 1 TABLET ONCE A DAY OR DIRECTED TAKE 7.5 mg on 10/12/2024. 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 Continue sensor as asymptomatic Abnormal stress test 04/26/2020 Overview (04/27/2020): [facility] Test is abnormal and suggest anterior ischemia. Normal LVEF Fatigue 12/09/2018 Syncope and collapse 08/18/2018 Complete heart block 08/18/2018 A-fib 08/16/2018 History of CVA (cerebrovascular accident) 2018 Laceration of head 08/16/2018 Hyponatremia 08/15/2018 Second degree AV block 08/15/2018 Overview (08/24/2018): Added automatically from request for surgery [id number] Chronic kidney disease 05/05/2012 Hereditary and idiopathic neuropathy 05/05/2012 CAD (coronary artery disease) Ischemic heart disease Overview (02/29/2016): a. CABG, Dr. Timur Lopez, July 1999. i. SHEEHAN to distal LAD. ii. SVG to first diagonal. iii. SVG to second diagonal. b. SHAR Concord metal stenting of the ostium of the SVG to second diagonal. c. Rotational atherectomy/PTCA of RCA and SVG to second diagonal in-stent. i. PTCRA/stenting of proximal RCA in-stent restenosis and rotational atherectomy/PTCA of SVG to second diagonal. d. Americo therapy for in-stent restenosis of proximal dominant RCA, 04/16/2001, LVEF (65%). e. [facility]: Dr. Thakkar for acute OK, 01/10/2007: i. Normal LV function and wall motion. ii. Patent SVG to second diagonal. iii. Patent SHEEHAN graft to LAD. iv. 50% ostial stenosis of SVG to first diagonal. v. JANA Taxus stenting of mid RCA stenosis. f. Mild reversible anteroischemia - Cardiac SPECT (scan date ?), LVEF (77%). g. [facility], May 2011, [facility], reportedly revealed no disease (data [...] Encounters Date Type Department Care Team Description 10/12/2024 9:52 AM EDT - 10/12/2024 4:46 PM EDT Hospital Encounter [facility] [address] [place] [address] Naveen Velasquez MD Paroxysmal atrial fibrillation Discharge Disposition: Home or Self Care 10/12/2024 Telephone [facility] [address] [facility] [address] [place] [address] Marj Delgado, PharmD 10/12/2024 Travel 10/07/2024 Telephone [facility] [address] [facility] [address] [place] [address] Mike Mariee, Graduate Research Assistant 10/05/2024 Telephone [facility] [address] [facility] [address] [place] [address] TOMASSONI - CARDIOVERSION 10/05/2024 Anticoagulation Visit [facility] [address] [facility] [address] [place] [address] Mike Mariee, Graduate Research Assistant Left ventricular apical thrombus (Primary Dx) 10/04/2024 Telephone [facility] [address] [facility] [address] [place] [address] MD [address]CRAGER - PPW REQUEST 09/28/2024 Anticoagulation Visit [facility] [address] [facility] [address] [place] [address] Yancy Viveros, Graduate Research Assistant Left ventricular apical thrombus (Primary Dx) 09/28/2024 Telephone [facility] [address] [facility] [address] [place] [address] Sujit Reyes MD Results 09/24/2024 Travel 09/22/2024 11:30 AM EDT Anticoagulation Visit [facility] [address] [facility] [address] [place] [address] Left ventricular apical thrombus (Primary Dx) 09/22/2024 Travel 09/21/2024 Telephone [facility] [address] [facility] [address] [place] [address] Marj Delgado, PharmD 09/20/2024 Telephone [facility] [address] [facility] [address] [place] [address] Marj Delgado, PharmD 09/20/2024 Travel 09/16/2024 Prep for Surgery [facility] ONLY [address] [place] [address] Peg Nails PA-C 09/06/2024 Documentation [facility] [address] [facility] [address] [place] [address] Ekaterina Rand PA 09/06/2024 Telephone [facility] [address] [facility] [address] [place] [address]CRAGER - CALL BACK 09/06/2024 Refill [facility] [address] [facility] [address] [place] [address] Sujit Reyes MD Med Refill 09/02/2024 Anticoagulation Visit [facility] [address] [facility] [address] [place] [address] Mike Mariee, Graduate Research Assistant Left ventricular apical thrombus (Primary Dx) 08/31/2024 Documentation [facility] [address] [facility] [address] [place] [address] Naveen Velasquez MD 08/31/2024 Telephone [facility] [address] [facility] [address] [place] [address]TOMASSONI - CALL BACK 08/27/2024 2:55 PM EDT Lab [facility] [address] [place] [address] Left ventricular apical thrombus; Left ventricular apical thrombus without OK 08/27/2024 1:30 PM EDT Anticoagulation Visit [facility] [address] [facility] [address] [place] [address] Left ventricular apical thrombus (Primary Dx); Left ventricular apical thrombus without OK 08/27/2024 Travel 08/26/2024 Anticoagulation Visit [facility] [address] [facility] [address] [place] [address] Yancy Viveros, Graduate Research Assistant Left ventricular apical thrombus (Primary Dx) 08/11/2024 Anticoagulation Visit [facility] [address] [facility] [address] [place] [address] Yancy Viveros, Graduate Research Assistant Left ventricular apical thrombus (Primary Dx) 08/04/2024 9:15 AM EDT Anticoagulation Visit [facility] [address] [facility] [address] [place] [address] Left ventricular apical thrombus (Primary Dx) 08/04/2024 Travel 07/30/2024 Telephone [facility] [address] [facility] [address] [place] [address] TOMASSONI -CARDIOVERSION 07/29/2024 Anticoagulation Visit [facility] [address] [facility] [address] [place] [address] Yancy Viveros, Graduate Research Assistant Left ventricular apical thrombus (Primary Dx) 07/28/2024 11:45 AM EDT Office Visit [facility] [address] [facility] [address] [place] [address] Naveen Velasquez MD Atrial fibrillation, persistent (Primary Dx); Complete heart block; Coronary artery disease involving [place]. croix coronary artery of [place] croix heart without angina pectoris; Chronic diastolic congestive heart failure 07/28/2024 Travel 07/28/2024 Telephone [facility] [address] [facility] [address] [place] [address] Naveen Velasquez MD Appointment 07/19/2024 Telephone [facility] [address] [facility] [address] [place] [address]TOMASSONI- CALL BACK 07/19/2024 Telephone [facility] [address] [facility] [address] [place] [address] Sujit Reyes MD Appointment from Last 3 Months Immunizations Immunization Administration Dates Next Due COVID-19 (Glovico) Purple Cap Monovalent 04/22/19 21,03/30/2020 Fluzone High-Dose [...] Mass Index 22.54 10/12/2024 3:28 PM EDT Plan of Treatment Upcoming Encounters Date Type Department Care Team (Late st Contact Info) Description 10/21/2024 2:15 PM EDT Office Visit [facility] [address] [place] [phone] Shannen Horta, SUPERVISOR PYROTECHNIC LOADING [address] [facility] [address] [place], [place] [phone] 12/02/2024 3:30 PM EDT Office Visit [facility] C[facility] [address] [place] [address] [place] [address] Sujit Reyes MD [address] [facility] [address] [place], [place] [phone] 01/19/2025 1:45 PM EST Office Visit [facility] [address] [place] [address] Naveen Velasquez MD [address] [facility] [address] [place], [place] [phone] Health Maintenance Due Date Last Done Comments DIABETIC FOOT EXAM 1961 URINE MICROALBUMIN-CREATININ E RATIO (uACR) 1961 TDAP/TD VACCINES (1 - Tdap) 1970 COLOGUARD 02/09/1996 COLON CANCER SCREENING 5 YEA R SIGMOIDOSCOPY 02/09/1996 CT COLONOGRAPHY 02/09/1996 FIT Testing (1 year) 02/09/1996 COVID-19 Vaccine (3 - Pfizer risk series) 05/20/2020 04/22/2020, 03/30/2020 MAMMOGRAM 11/10/2023 11/09/2021, 09/0 04/2021, 01/25/2020, Additional history exists ANNUAL WELLNESS [...] history exists Medical Devices Implanted Type Area Business Technology Professor Device Identifier Shelf Expiration Date Model / Serial / Lot Ld Pm Tendril Sts 6f52cm [id number] - [id number] - [id number] Implanted:Qty: 1 on 08/24/2018 by Naveen Velasquez MD at [facility] Lead [employer] 07/07/[id number] / [id number] / [id number] Ld Pm Tendril Sts 6f46cm [id number] - [id number] - [id number] Implanted:Qty: 1 on 08/24/2018 by Naveen Velasquez MD at [facility] Lead [employer] 04/09/[id number] / [id number] / [id number] Gen Pm Assurity Mri Dr Ortez [id number] - [id number] - [id number] Implanted:Qty: 1 on 08/24/2018 by Naveen Velasquez MD at [facility] Pacemaker [employer] 01/08/2020 [id number] / [id number] / [id number] Procedures Procedure Name Priority Date/Time Associated Diagnosis Comments KENIA W/ CONTRAST, LIMITED DOPPLER AND COLOR Routine 10/12/2024 3:27 PM EDT CARDIOVERSION EXTERNAL IN CARDIOLOGY DEPARTMENT Routine 10/12/2024 3:27 PM EDT Paroxysmal atrial fibrillation PROTIME-INR STAT 10/12/2024 10:20 AM EDT CBC (NO DIFF) STAT 10/12/2024 10:20 AM EDT SCANNED - LABS 10/05/2024 PROTIME-INR Routine 10/04/2024 PROTIME-INR STAT 09/24/2024 9:30 AM EDT POCT PROTIME - INR Routine 09/22/2024 11 :47 AM EDT PROTIME-INR STAT 09/21/2024 9:55 AM EDT BASIC METABOLIC PANEL STAT 09/21/2024 9:55 AM EDT CBC (NO DIFF) STAT 09/21/2024 9:55 AM EDT PROTIME-INR Routine 09/01/2024 SCANNED EKG 08/31/2024 SCANNED EKG 08/30/2024 PROTIME-INR STAT 08/27/2024 3:01 PM EDT 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 croix coronary artery of st. croix heart without angina pectoris Chronic diastolic congestive heart failure PROTIME-INR Routine 07/27/2024 OCCULT BLOOD X 1, STOOL Urgent 02/12/2024 12:11 PM EST SCANNED - COLONOSCOPY 10/17/2020 HEMOGLOBIN A1C STAT 05/04/2020 8:41 AM EST LIPID PANEL STAT 05/04/2020 8:41 AM EST from Last 3 Months or Most Recently Relevant to Health Maintenance Results * Cardioversion External in Cardiology Department (10/12/2024 3:27 PM EDT) Anatomical Region Laterality Modality Other Narrative 10/12/2024 3:41 PM EDT Not performed secondary to left atrial appendage thrombus Cardioversion Procedure Moderate sedation was utilized. Cardioversion Shock 1 0 joules delivered to patient. us Naveen Velasquez MD CV CARDIAC SERVICES ORDERABL ES Final Result * KENIA W/ CONTRAST, LIMITED DOPPLER AND [...] CV ECHO ORDERABLES Final Resul t * (ABNORMAL) Protime-INR (10/12/2024 10:20 AM EDT) Only the most recent of9 resultswithin the time period is included. Protime 17.8(H) 12.2 - 15.3 Seconds 10/12/2024 11:00 AM EDT [facility] INR 1.37(H) 0.89 - 1.12 10/12/2024 11:00 AM EDT [facility] Blood Line / Unknown 10/12/2024 10 :20 AM EDT 10/12/2024 10:40 AM EDT Naveen Velasquez MD LAB BLOOD ORDERABLES Final R esult [facility]
[address] [place] [address], * (ABNORMAL) CBC (No Diff) (10/12/2024 10:20 AM EDT) Only the most recent of2 resultswithin the time period is included. WBC 7.80 3.40 - 10.80 10*3/mm3 10/12/2024 10:48 AM EDT [facility] RBC 3.75(L) 3.77 - 5.28 10*6/mm3 10/12/2024 10:48 AM EDT [facility] Hemoglobin 11.2(L) 12.0 - 15.9 g/dL 10/12/2024 10:48 AM EDT [facility] Hematocrit 36.8 34.0 - 46.6 % 10/12/2024 10:48 AM EDT [facility] MCV 98.1(H) 79.0 - 97.0 fL 10/12/2024 10:48 AM EDT [facility] MCH 29.9 26.6 - 33.0 pg 10/12/2024 10:48 AM EDT [facility] MCHC 30.4(L) 31.5 - 35.7 g/dL 10/12/2024 10:48 AM EDT [facility] RDW 16.7(H) 12.3 - 15.4 % 10/12/2024 10:48 AM EDT [facility] RDW-SD 60.3(H) 37.0 - 54.0 fl 10/12/2024 10:48 AM EDT [facility] MPV 9.7 6.0 - 12.0 fL 10/12/2024 10:48 AM EDT [facility] Platelets 289 140 - 450 10*3/mm3 10/12/2024 10:48 AM EDT [facility] Blood Line / Unknown 10/12/2024 10 :20 AM EDT 10/12/2024 10:40 AM EDT Naveen Velasquez MD LAB BLOOD ORDERABLES Final R esult Performing Organization Address City/[facility]/ZIP Co de Phone Number [facility]
[address] [place] [address], * LABS SCANNED (10/05/2024) [facility] LAB BLOOD ORDERABLES Final Re sult * (ABNORMAL) POC Protime / INR (09/22/2024 11:47 AM EDT) Only the most recent of2 resultswithin the time period is included. Protime 24.2(H) 10.0 - 13.8 seconds 09/22/2024 11:49 AM EDT [facility] INR 2.0(H) 0.91 - 1.09 09/22/2024 11:49 AM EDT [facility] Blood 09/22/2024 11:4 7 AM EDT 09/22/2024 11:49 AM EDT LUIS Dimas POINT OF CARE TEST ORDERAB LES Final Result [facility]
[address] [place] [address], * (ABNORMAL) Basic Metabolic Panel (09/21/2024 9:55 AM EDT) Glucose 209(H) 65 - 99 mg/dL 09/21/2024 11:17 AM EDT [facility] BUN 19.8 8.0 - 23.0 mg/dL 09/21/2024 11:17 AM T [facility] Creatinine 1.05(H) 0.57 - 1.00 mg/dL 09/21/2024 11:17 AM T [facility] Sodium 133(L) 136 - 145 mmol/L 09/21/2024 11:17 AM T [facility] Potassium 5.0 3.5 - 5.2 mmol/L 09/21/2024 11:17 AM EDT [facility] Chloride 91(L) 98 - 107 mmol/L 09/21/2024 11:17 AM EDT [facility] CO2 27.6 22.0 - 29.0 mmol/L 09/21/2024 11:17 AM T [facility] Calcium 9.0 8.6 - 10.5 mg/dL 09/21/2024 11:17 AM [facility] BUN/Creatinine Ratio 18.9 7.0 - 25.0 09/21/2024 11:17 AM T [facility] Anion Gap 14.4 5.0 - 15.0 mmol/L 09/21/2024 11:17 AM [facility] eGFR 56.2(L) >60.0 mL/min/1.7 3 09/21/2024 11:17 AM [facility] Blood Line / Unknown 09/21/2024 9: 55 AM EDT 09/21/2024 10:29 AM EDT [facility] - 09/21/2024 11:17 AM EDT [...] Nails PA-C LAB BLOOD ORDERABLES Final Result [facility]
[address] [place] [phone], * ECG Scan (08/31/2024) Only the most recent of2 resultswithin the time period is included. Naveen Velasquez MD ECG ORDERABLES Final Result * Remote Device Check (08/24/2024 5:09 PM EDT) Date Time Interrogation Session [id number] [facility] Type Interrogation Session Remote Scheduled [facility] Implantable Pulse Generator Business Technology Professor [employer] [facility] Implantable Pulse Generator Type IPG [facility] Implantable Pulse Generator Model 2272 Assurity MRI(TM) [facility] Implantable Pulse Generator Serial Number [id number] [facility] Implantable Pulse Generator Implant Date [id number] [facility] Battery Remaining Percentage 39.00 % [facility] Battery Remaining Longevity 44.0 mo [facility] Battery Voltage 2.960 [facility] Battery VISUAL LEAD Trigger 2.600 [facility] Battery Status Middle of Service [facility] Americo Statistic RA Percent Paced 1.00 [facility] Americo Statistic RV Percent Paced 99.00 [facility] Atrial Tachy Statistic AT/AF Barnard Percent 99.00 [facility] Lead Channel RA Sensing Intrinsic Amplitude 3.100 [facility] Lead Channel Setting RA Sensing Sensitivity 0.50 [facility] Lead Channel RA Impedance Value 430 [facility] Lead Channel Setting RA Pacing Amplitude 2.000 [facility] Lead Channel Setting RA Pacing Pulse Width 0.6 [facility] Lead Channel RV Sensing Intrinsic Amplitude 12.000 [facility] Lead Channel Setting RV Sensing Sensitivity 2.00 [facility] Lead Channel RV Impedance Value 480 [facility] Lead Channel Setting RV Pacing Amplitude 2.000 [facility] Lead Channel Setting RV Pacing Pulse Width 0.5 [facility] Americo Setting Mode (NBG Code) DDDR [facility] Americo Setting Lower Rate Limit 60 [facility] Americo Setting AT Mode Switch Rate 160 [facility] [employer]o Setting Maximum Tracking Rate 125 [facility] Americo Setting Maximum Sensor Rate 115 [facility] [employer] Setting PAV Delay 180 [facility] [place]o Setting IZZY Delay 150 [facility] Lead Channel Setting RA Sensing Polarity Bipolar [facility] Lead Channel Setting RV Sensing Polarity Bipolar [facility] Lead Channel Setting RA Pacing Polarity Bipolar [facility] Lead Channel Setting RV Pacing Polarity Bipolar [facility] Lead Channel RA Pacing Threshold Polarity Bipolar [facility] Lead Channel RV Pacing Threshold Polarity Bipolar [facility] 08/24/2024 5:09 PM EDT us Naveen Velasquez MD CV IMPLANTABLE CARDIAC DEVIC E Final Result [facility] * ECG 12-LEAD (07/28/2024) Narrative 07/28/2024 [...] 11:45 AM EDT Michelle Felipe 1950 07/28/2024 [facility] Referring Provider: No ref. provider found Alisa Kunz, DO [address] [place] [id number] Chief Complaint Patient presents with PAF (paroxysmal atrial fibrillation) Problem List: Ischemic heart disease: CABG, Dr. Timur Lopez, July 1999 (SHEEHAN to distal LAD,SVG to firstdiagonal, SVG to second diagonal, SHAR [place] metal stenting of the ostiumof the SVG to second diagonal, Rotational atherectomy/PTCA of RCA and SVGto second diagonal in-stent. PTCRA/stenting of proximal RCA in-stent restenosis and rotationalatherectomy/PTCA of SVG to second diagonal. Brachy therapy for in-stent restenosis of proximal dominant RCA,04/16/2001, LVEF (65%). [facility]: Dr. Thakkar for acute OK, 01/10/2007: Normal LV function andwall motion, Patent SVG to second diagonal, Patent SHEEHAN graft to LAD, 50%ostial stenosis of SVG to first diagonal, JANA Taxus stenting of mid RCAstenosis. Mild reversible anteroischemia - Cardiac SPECT (scan date ?), LVEF(77%). [facility], May 2011, [facility], reportedly revealed no disease (datadeficit) in setting of diabetic ketoacidosis associated with acuterespiratory failure requiring mechanical ventilation x 5 days. Echocardiogram 04/12/16: LVEF 70%, mild MR, AV sclerosis Myocardial perfusion study 02/17/2017: Wnl, EF 70% Echo, 05/18/21, EF 60%, Mild MS [facility] PTCA RCA ISR: Patent Grafts. 04/30 [...] block SJ PPM - GFT CVA 04/27 [facility], outpt monitor demonstrated Afib 40% carotid plaque [...] heart block 3. Coronary artery disease involving st. croix coronary artery of nativeheart without angina pectoris [...] Negative DISK DIFFUSION 02/12/2024 1:13 PM EST [facility] Stool Specimen from rectum / Unknown Collection / Unknown 02/12/2024 12:11 PM EST 02/12/2024 12:31 PM EST Shannen Foy APRN BODY FLUIDS AND STOOLS ORDERABLES Final Result [facility]
[address] [place] [address], * SCANNED - COLONOSCOPY (10/17/2020) Sujit Christine MD CHART REVIEW SANJIV howard Result * (ABNORMAL) Lipid Panel (05/04/2020 8:41 AM EST) Total Cholesterol 184 0 - 200 mg/dL 05/04/2020 9:34 AM EST [facility] Triglycerides 133 0 - 150 mg/dL 05/04/2020 9:34 AM EST [facility] HDL Cholesterol 55 40 - 60 mg/dL 05/04/2020 9:34 AM EST [facility] LDL Cholesterol 106(H) 0 - 100 mg/dL 05/04/2020 9:34 AM EST [facility] VLDL Cholesterol 23 5 - 40 mg/dL 05/04/2020 9:34 AM EST [facility] LDL/HDL Ratio 1.86 05/04/2020 9:34 AM EST [facility] Blood Line / Unknown 05/04/2020 8: 41 AM EST 05/04/2020 8:55 AM EST [facility] - 05/04/2020 9:34 AM EST [...] High 160-189 mg/dL Very High >189 mg/dL us Nelsy Phelps SUPERVISOR PYROTECHNIC LOADING LAB BLOOD ORDERABLES Lee Ann howard Result [facility]
[address] [place] [address], [place] [phone] from Last 3 Months or Most Recently [...] Of Support Discussed With: Patient Care Teams [employer] Programmer Relationship Specialty Start Date End Date Alisa Kunz DO [address] [place] [address] PCP - General Internal Medicine 04/26/21
--- OUTSIDE RECORDS SUMMARY | 2024-10-18 15:01 | XMS_ITS | Encounter Summary ---
Author Organization [facility] ystem Address [address] [place] [address] Care Team Providers Care Software Technician Name Role Phone Alisa Kunz Primary Care Provider +1- [phone] Reason for Visit * Reason Onset Date Comments - CALL BACK 07/19/2024 Encounter Details Date Type Department Care Team (Late st Contact Info) Description 07/19/2024 Telephone [facility] CARDIOLOGY [address] [facility] [address] [place] [address] Naveen Velasquez MD [address] [facility] [address] [place] [id number] - CALL BACK Social History Tobacco Use [...] Felipe Relationship: Self Best call back number: [phone] What is the best time to reach [...] it okay if the provider responds through Fourth Wall Studioshart: PLEASE CALL PT, THANK YOU documented in this encounter Plan of Treatment Upcoming Encounters Date Type Department Care Team (Late st Contact Info) Description 10/21/2024 2:15 PM EDT Office Visit [facility] SLEEP MEDICINE [address] [place] [address] Shannen Horta, EXTRAS CASTING DIRECTOR [address] [place] [id number] 12/02/2024 3:30 PM EDT Office Visit [facility] CARDIOLOGY [address] [place] [address] [place] [address] Sujit Reyes MD 1720 [facility] Bld[address] E [address] [place], [place] [address] 01/19/2025 1:45 PM EST Office Visit [facility] CARDIOLOGY [address] [facility] [address] [place] [address] Naveen Velasquez MD [address] [facility] [address] [place] [address] documented as of this encounter Visit Diagnoses Not on filedocumented in this encounter Care Teams Software Technician Relationship Specialty Start Date End Date Alisa Kunz DO [address] [facility] [address] [place], [place] [id number] PCP - General Internal Medicine 04/26/21 documented as of this encounter
--- OUTSIDE RECORDS SUMMARY | 2024-10-18 15:01 | XMS_ITS | Encounter Summary ---
Author Organization [facility] Address [address] [place] [address] Care Team Providers Care Switchgear Repairer Name Role Phone Alisa Kunz DO Primary Care Provider [phone] Laura Albright HATCH BOSS Unavailable Unavailable Balwinder Vale Unavailable Unavailable Kodi Bustos DO Unavailable [phone] Sujit Arriola MD Unavailable [phone] HatLaura navas LPN Unavailable Unavailable Sujit Reyes MD Unavailable [phone] Zully Caldwell HATCH BOSS Unavailable Unavailable HatLaura navas HATCH BOSS Unavailable Unavailable HatLaura navsa HATCH BOSS Unavailable Unavailable Tanya Powell Unavailable [phone] Sarah Reyes HATCH BOSS Unavailable Unavailable Ekaterina Gómez Unavailable Unavailable Zully Caldwell HATCH BOSS Unavailable Unavailable Ekaterina Gómez Unavailable Unavailable Patricia Yañez HATCH BOSS Unavailable Unavailab Zee Lr DO Unavailable [phone] Reason for Visit * Reason Comments Med Refill Encounter Details Date Type Department Care Team (Late st Contact Info) Description 12/10/2021 Refill [facility] Internal Medicine [address] 3rd [place] [address] Alisa Kunz DO [address] [place] [address] Social History Tobacco Use Types [...] Description 10/25/2024 10:00 AM EDT Office Visit [facility] Nephrology, Bone & Mineral Metabolism [address] [facility] [place] [address] Bryon Brandon MD [address] [place] [address] 10/27/2024 1:40 PM EDT Office Visit [facility] Endocrinology [address] [place] [address] Anne-Marie Kolb, CHILD PROTECTIVE SERVICES SPECIALIST [address] [place] [address] 12/23/2024 4:00 PM EDT Office Visit [facility] [address] [place] [address] Lavern Shoemaker MD [address] [place] [address] 02/02/2025 8:40 AM EST Office Visit [facility] Internal Medicine [address] [place] [address] Alisa Kunz, DO [address] [place] [address] documented as of this encounter [...] documented as of this encounter Care Teams Switchgear Repairer Relationship Specialty Start Date End Date Alisa Kunz DO [address] [place] [address] PCP - General Internal Medicine 03/13/21 Laura Albright LPN VALUE[employer]ED [place] [address] TCM Nurse 08/30/22 09/27/22 Balwinder Vale [address] [address] Community Health Worker Director Veterinary 08/30/22 09/06/22 Kodi Bustos DO [address] [address] Surgeon Cardiothoracic Surgery 11/06/22 Sujit Arriola MD [address] [place] [address] Consulting Physician Pulmonary Disease 11/06/22 Laura Albright LPN [employer] [place] [address] TCM Nurse 12/02/22 01/01/23 Sujit Reyes MD [address] [place] [address] Referring Physician 12/04/22 Zully Caldwell LPN VAL[employer] [place] [address] TCM Nurse 02/03/23 03/05/23 Laura Albright LPN VALUE-[employer]ED [place] [address] TCM Nurse 08/05/23 09/04/23 Laura Albright LPN VAL[employer] [place] [address] TCM Nurse 02/17/24 03/18/24 Tanya Powell [address] [facility] 125 [place] [address] Registered Nurse 04/02/24 07/01/24 Sarah Reyes LPN TCM Nurse 05/27/24 06/26/24 Ekaterina Gómez Bevel Face Stoner And Polisher Director Veterinary 07/14/24 07/14/24 Zully Caldwell LPN VALUE-[employer]ED [place] [address] TCM Nurse 07/16/24 08/15/24 Ekaterina Gómez Bevel Face Stoner And Polisher Director Veterinary 08/16/24 08/16/24 Patricia Yañze LPN [facility] TCM Nurse 08/25/24 10/17/24 Zee Lazar DO [address] [place] [address] Resident 09/08/24 documented as of this encounter
--- OUTSIDE RECORDS SUMMARY | 2024-10-18 15:01 | XMS_ITS | Encounter Summary ---
Author Organization [facility] ystem Address [address] [place] [address] Care Team Providers Care Health Companion Name Role Phone Ze Alisa Lizbeth Primary Care Provider [phone]- [phone] Reason for Referral * Hospital - Outpatient (Routine) - Authorized Specialty Diagnoses / Procedures Referred By Contac t Referred To Contact Diagnoses Paroxysmal atrial fibrillation Procedures Cardioversion External in Cardiology Department AR CARDIOVERSION ELECTIVE ARRHYTHMIA EXTERNAL Sujit Reyes MD 1720 [facility] E [address] [place] [address] Phone: tel: fax: [facility] INVASIVE LOCATION Referral ID Status Reason Start Date Expiration Date V isits Requested Visits Authorized [id number] Authorized 09/06/2024 12/06/2025 1 2 Reason for Visit * Reason Onset Date Comments - CALL BACK 09/06/2024 Encounter Details Date Type Department Care Team (Late st Contact Info) Description 09/06/2024 Telephone [facility] CARDIOLOGY 1720 [facility] 400 [place] [address] Sujit Reyes MD 1720 [facility] E [address] [place] [address] - CALL BACK Social History Tobacco Use [...] Felipe Relationship: Self Best call back number: [phone] What is the best time to reach [...] [facility] SLEEP MEDICINE [address] [facility] [facility] [place] [address] Shannen Horta, INLAYER 1720 [facility] [address] [place] [address] 12/02/2024 3:30 PM EDT Office Visit [facility] CARDIOLOGY [address] [place] [address] Sujit Reyes MD 1720 [facility] [address] [place], [place] [address] 01/19/2025 1:45 PM EST Office Visit [facility] CARDI[facility] 1720 [facility] [address] [place] [address] Naveen Velasquez MD [address] [facility] [address] [address] [place] [address] documented as of this encounter Visit Diagnoses Diagnosis Paroxysmal atrial fibrillation- Primary Atrial fibrillation documented in this encounter Care Teams Health Companion Relationship Specialty Start Date End Date Alisa Kunz DO [address] [place] [id number] PCP - General Internal Medicine 04/26/21 documented as of this encounter
--- OUTSIDE RECORDS SUMMARY | 2024-10-18 15:01 | XMS_ITS | Encounter Summary ---
Author Organization [facility] Address [address] [place] [address] Care Team Providers Care Director Of Nurses Registry Name Role Phone Alisa Kunz Primary Care Provider +1- [phone] Encounter Details Date Type Department Care Team (Latest Contact Info) Description 09/02/2024 Anticoagulation Visit [facility] [address] [facility] [address] [place] [address] Mike Mariee, Gaming Surveillance Observer Left ventricular apical thrombus (Primary Dx) Social [...] this encounter Progress Notes * Mike Mariee, Gaming Surveillance Observer - 09/02/2024 8:29 AM EDT [facility] Anticoagulation Clinic Progress Note Patient Demographics Method of INR reporting: [email or web address] Home Monitor SN [id number] Estimated OOP Cost: Indication: Left Ventricular Atypical Thrombus (~2012) Referring Provider Nanette Pryor APRN Reason patient is not on a DOAC: Goal INR: 2-3 Warfarin Start Date ~02/12/24 Reason patient is not on home monitor: [id number]: Planned Duration of Therapy Indefinite Relevant medical [...] - HM 1.4 - Clinic 1.32 - ACCOUNT RECEIVABLE ASSOCIATE 2.8 Notes Admitted [facility] Rec'd 05/27 HM 1-BILL TODAY HM 2- no leonid; In clinic HM 3 - no bill HM 4 - no bill HM 1- BILL TODAY HM 2 - no bill Rec'd 08/11 HM 3 - no bill HM 4- no bill Rec'd 09/02 Patient Contact Information Verbal release: Signed 03/05/24 Preferred contact number: [phone] Alternative contact number(s): [phone] (Doron) [phone] (Ruthie) [phone] (Madyson) Patient Appropriate for WarfNoCall ? No [...] strips on hand: 6 09/02/24 Barcode number: [id number] Test strip LOT: [id number] EXP: 03/2026 Serial number: SN(41) [id number] Supplies billing code used: last 08/04/24] - Next must be on or after 09/01/24 Transfer Tube Lot number: [id number] Safety Lancets: Lot: Exp: Billing: bill must be completed every 4th encounter that falls outside of 28 days from last HM visit PLEASE REFER TO ANTICOAGULATION TRAINING POWERPOINT FOR BILLING. Needs to use in clinic remote appointment for encounter. Mike Mariee [facility] 09/02/2024 08:42 EDT I, Reema Beal, PharmD, have reviewed the note in full and agree with the assessment and plan. 09/02/24 09:05 EDT documented in this encounter Plan of Treatment Upcoming Encounters Date Type Department Care Team (Late st Contact Info) Description 10/21/2024 2:15 PM EDT Office Visit [facility] SLEEP MEDICINE [address] [place] [address] Shannen Horta, NEONATAL CRITICAL CARE NURSE [address] [place] [address] 12/02/2024 3:30 PM EDT Office Visit [facility] CARDIOLOGY [address] [place] [place] [address] Sujit Reyes MD [address] [place] [address] 01/19/2025 1:45 PM EST Office Visit [facility] CARDIOLOGY [address] [place] [address] Naveen Velasquez MD [address] [place] [address] documented as of this encounter Procedures Procedure Name Priority Date/Time Associated Diagnosis Comments PROTIME-INR Routine 09/01/2024 documented in this encounter Results * Protime-INR (09/01/2024) INR 2.80 Blood 09/01/2024 us Historical Provider LAB BLOOD ORDERABLES Lee Ann l Result documented in this encounter Visit Diagnoses Diagnosis Left ventricular apical thrombus- Primary documented in this encounter Care Teams Director Of Nurses Registry Relationship Specialty Start Date End Date Alisa Kunz DO [address] [place], [place] [id number] PCP - General Internal Medicine 04/26/21 documented as of this encounter
--- OUTSIDE RECORDS SUMMARY | 2024-10-18 15:01 | XMS_ITS | Encounter Summary ---
Author Organization [facility] ystem Address [address] [place] [address] Care Team Providers Care Vending Attendant Name Role Phone Alisa Kunz Primary Care Provider +1- [phone] Reason for Visit * Reason Comments Med Refill Encounter Details Date Type Department Care Team (Late st Contact Info) Description 09/06/2024 Refill [facility] CARDIOLOGY [address] [place] [address] Sujit Reyes MD 1720 [facility] Bldg E [address] [place] [id number] Med Refill Social History Tobacco Use Types [...] Description 10/21/2024 2:15 PM EDT Office Visit [facility] SLEEP MEDICINE [address] [place] [address] Shannen Horta, WEB SITE DEVELOPER [address] [facility] [address] [place] [address] 12/02/2024 3:30 PM EDT Office Visit [facility] CARDIOLOGY [address] [place] [place] [address] Sujit Reyes MD [address] [place] [address] 01/19/2025 1:45 PM EST Office Visit [facility] CARDIOLOGY [address] [place] [address] Naveen Velasquez MD [address] [place] [address] documented as of this encounter Visit Diagnoses Not on filedocumented in this encounter Care Teams Vending Attendant Relationship Specialty Start Date End Date Alisa Kunz DO [address] [facility] 304 [place], [place] [address] PCP - General Internal Medicine 04/26/21 documented as of this encounter
--- OUTSIDE RECORDS SUMMARY | 2024-10-18 15:01 | XMS_ITS | Encounter Summary ---
[facility] Address [address] [place] [address] Care Team Providers Care Metal Crafts Teacher Name Role Phone Alisa Kunz Primary Care Provider +1- [phone] Encounter Details Date Type Department Care Team (Late st Contact Info) Description 09/20/2024 Telephone [facility] 1720 [facility] [address] [place] [address] Marj Delgado, PharmD 1740 [place] [address] Social History Tobacco Use Types [...] Description 10/21/2024 2:15 PM EDT Office Visit [facility] SLEEP MEDICINE [address] [place] [address] Shannen Horta, ICU RN [address] [place] [address] 12/02/2024 3:30 PM EDT Office Visit [facility] CARDIOLOGY [address] [place] [address] Sujit Reyes MD [address] [place] [address] 01/19/2025 1:45 PM EST Office Visit [facility] CARDIOLOGY [address] [place] [address] Naveen Velasquez MD 1720 [facility] [address] [address] [place] [address] documented as of this encounter Visit Diagnoses Not on filedocumented in this encounter Care Teams Metal Crafts Teacher Relationship Specialty Start Date End Date Alisa Kunz DO [address] [place], [place] [phone] PCP - General Internal Medicine 04/26/21 documented as of this encounter
--- OUTSIDE RECORDS SUMMARY | 2024-10-18 15:01 | XMS_ITS | Encounter Summary ---
[facility] Address [address] [place] [address] Care Team Providers Care Associate Of Science In Nursing Name Role Phone Alisa Kunz Primary Care Provider +1- [phone] Encounter Details Date Type Department Care Team (Latest Contact Info) Description 06/14/2024 Anticoagulation Visit [facility] ANTICO[facility]UL[facility] CLINIC 1720 [facility] [address] [place] [address] Mike Mariee, Cloth Shrinking Tester Left ventricular apical thrombus (Primary Dx) Social [...] Description 10/21/2024 2:15 PM EDT Office Visit [facility] SLEEP MEDICINE [address] [place] [address] Shannen Horta, ASSOCIATE PRODUCER 1720 [facility] [address] [place] [address] 12/02/2024 3:30 PM EDT Office Visit [facility] CARDIOLOGY [address] [place] [address] [place] [address] Sujit Reyes MD 1720 [facility] [address] [place], [place] [address] 01/19/2025 1:45 PM EST Office Visit [facility] CARDIOLOGY [address] [facility] [address] [place] [address] Naveen Velasquez MD 1720 [facility] [address] [place], [place] [address] documented as of this encounter Visit Diagnoses Diagnosis Left ventricular apical thrombus- Primary documented in this encounter Care Teams Associate Of Science In Nursing Relationship Specialty Start Date End Date Alisa Kunz DO [address] [place] [address] PCP - General Internal Medicine 04/26/21 documented as of this encounter
--- OUTSIDE RECORDS SUMMARY | 2024-10-18 15:01 | XMS_ITS | Encounter Summary ---
Author Organization [facility] ystem Address [address] [place] [address] Care Team Providers Care Industrial Cleaning Technician Name Role Phone Alisa Kunz Primary Care Provider +1- [phone] Encounter Details Date Type Department Care Team (Late st Contact Info) Description 08/31/2024 Documentation [facility] CARDIOLOGY 1720 [facility] [address] [place] [address] Naveen Velasquez MD 1720 [facility] [address] E [address] [place] [address] Social History Tobacco Use Types [...] Description 10/21/2024 2:15 PM EDT Office Visit [facility] SLEEP MEDICINE [address] [facility] [place] [address] Shannen Horta, TELECINE OPERATOR 1720 [facility] [address] [place], [place] [address] 12/02/2024 3:30 PM EDT Office Visit [facility] CARDIOLOGY [address] [place] [address] Sujit Reyes MD [facility] [facility] [address] [place], [place] [address] 01/19/2025 1:45 PM EST Office Visit [facility] CARDIOLOGY 1720 [facility] [address] [place] [address] Naveen Velasquez MD 1720 [facility] [address] E [address] [place], [place] [address] documented as of this encounter Visit Diagnoses Not on filedocumented in this encounter Care Teams Industrial Cleaning Technician Relationship Specialty Start Date End Date Alisa Kunz DO 0 [place] [address] PCP - General Internal Medicine 04/26/21 documented as of this encounter
--- OUTSIDE RECORDS SUMMARY | 2024-10-18 15:01 | XMS_ITS | Encounter Summary ---
[facility] Address [address] [place] [address] Care Team Providers Care Linux Network Administrator Name Role Phone Alisa Kunz Primary Care Provider +1- [phone] Encounter Details Date Type Department Care Team (Latest Contact Info) Description 09/28/2024 Anticoagulation Visit [facility]IC 1720 [facility] 606 [place] [address] Yancy Viveros, Edge Glue Machine Tender Left ventricular apical thrombus (Primary Dx) Social [...] this encounter Progress Notes * Yancy Viveros, Edge Glue Machine Tender - 09/28/2024 3:37 PM EDT [facility] Anticoagulation Clinic Progress Note Patient Demographics Method of INR reporting: Gamersband Home Monitor SN [id number] Estimated OOP Cost: Indication: Left Ventricular Atypical Thrombus (~2012) Referring Provider Nanette Pryor APRN Reason patient is not on a DOAC: Goal INR: 2-3 Warfarin Start Date ~02/12/24 Reason patient is not on home monitor: [id number]: Planned Duration of Therapy Indefinite Relevant medical [...] - HM 1.4 - Clinic 1.32 - RV SERVICE TECHNICIAN 2.8 2.0 Notes Admitted [facility] Rec'd 05/27 [...] Verbal release: Signed 03/05/24 Preferred contact number: [phone] Alternative contact number(s): [phone] (Doron) [phone] (Ruthie) [phone] (Madyson) Patient Appropriate for WarfNoCall ? No [...] questions at this time. Yancy Viveros CPhT, [facility] 15:46 EDT 09/28/2024 IReema, PharmD, have reviewed the note in full and agree with the assessment and plan. 09/28/24 15:55 EDT documented in this encounter Plan of Treatment Upcoming Encounters Date Type Department Care Team (Late st Contact Info) Description 10/21/2024 2:15 PM EDT Office Visit [facility] SLEEP MEDICINE [address] [place] [address] Shannen Horta, YAMILET [address] [facility] [address] [place] [address] 12/02/2024 3:30 PM EDT Office Visit [facility] CARDIOLOGY [address] [place] [address] Sujit Reyes MD 1720 [facility] [address] [place], [place] [address] 01/19/2025 1:45 PM EST Office Visit [facility] CARDIOLOGY [address] [facility] [address] [place] [address] Naveen Velasquez MD [address] [facility] [address] [place] [address] documented as of this encounter Visit Diagnoses Diagnosis Left ventricular apical thrombus- Primary documented in this encounter Care Teams Linux Network Administrator Relationship Specialty Start Date End Date Alisa Kunz DO [address] [place] [address] PCP - General Internal Medicine 04/26/21 documented as of this encounter
--- OUTSIDE RECORDS SUMMARY | 2024-10-18 15:01 | XMS_ITS | Encounter Summary ---
Author [facility] Address [address] [place] [address] Care Team Providers Care Soaker Helper Name Role Phone Alisa Kunz Primary Care Provider +1- [phone] Encounter Details Date Type Department Care Team [...] Description 10/21/2024 2:15 PM EDT Office Visit [facility] SLEEP MEDICINE [address] [place] [address] Shannen Horta, BONE DRIER 1720 [facility] [address] [place] [address] 12/02/2024 3:30 PM EDT Office Visit [facility] CARDIOLOGY [address] [place] [address] Sujit Reyes MD [facility] [facility] [address] [place] [address] 01/19/2025 1:45 PM EST Office Visit [facility] CARDIOLOGY 1720 [facility] [address] [place] [address] Naveen Velasquez MD 1720 [facility] [address] [place] [address] documented as of this encounter Visit Diagnoses Not on filedocumented in this encounter Care Teams Soaker Helper Relationship Specialty Start Date End Date Alisa Kunz DO [address] [place], [place] [address] PCP - General Internal Medicine 04/26/21 documented as of this encounter
--- OUTSIDE RECORDS SUMMARY | 2024-10-18 15:01 | XMS_ITS | Encounter Summary ---
Author Organization [facility] ystem Address [address] [place] [address] Care Team Providers Care Gunnery/Ordnance Officer Name Role Phone Alisa Kunz Primary Care Provider +1- [phone] Reason for Visit * Reason Onset Date Comments - PPW REQUEST 10/04/2024 Encounter Details Date Type Department Care Team (Late st Contact Info) Description 10/04/[address] [facility] CARDIOLOGY [address] [facility] 400 [place] [address] Sujit Reyes MD [address] [facility] [address] [facility] [address] [place] [id number] - PPW REQUEST Social History Tobacco Use [...] 10/04/2024 8:39 AM EDT Caller: Michelle Felipe Tulio Relationship: Self Best call back number: [phone] What form or medical record are you requesting: INR Who is requesting this form or medical record from you: PATIENT How would you like to receive the form or medical records (pick-up, mail, fax): FAX If fax, what is the fax number: [phone] Timeframe paperwork needed: [place] Additional notes: ORDERS FOR INR documented in this encounter Plan of Treatment Upcoming Encounters Date Type Department Care Team (Late st Contact Info) Description 10/21/2024 2:15 PM EDT Office Visit [facility] SLEEP MEDICINE [address] [place] [address] Shannen Horta APRN [address] [place] [address] 12/02/2024 3:30 PM EDT Office Visit [facility] CARDIOLOGY [address] [place] [place] [address] Sujit Reyes MD [address] [facility] [address] [place], [place] [address] 01/19/2025 1:45 PM EST Office Visit [facility] CARDIOLOGY 1720 [facility] [address] [place] [address] Naveen Velasquez MD 1720 [facility] [address] [place], [place] [address] documented as of this encounter Visit Diagnoses Not on filedocumented in this encounter Care Teams Gunnery/Ordnance Officer Relationship Specialty Start Date End Date Alisa Kunz DO [address] [facility] [address] [place], [place] [id number] PCP - General Internal Medicine 04/26/21 documented as of this encounter
--- OUTSIDE RECORDS SUMMARY | 2024-10-18 15:01 | XMS_ITS | Encounter Summary ---
Author Organization [facility] ystem Address [address] [place] [address] Care Team Providers Care Nnps Name Role Phone Alisa Kunz Primary Care Provider +1- [phone] Reason for Visit * Reason Onset Date Comments Results 09/28/2024 Encounter Details Date Type Department Care Team (Late st Contact Info) Description 09/28/2024 Telephone [facility] CARDIOLOGY [address] [facility] [address] [place] [address] Sujit Reyes MD 1720 [facility] Bld[address] E [facility] 400 [place] [address] Results Social History Tobacco Use [...] Felipe Relationship: Self Best call back number: [phone] What is the best time to reach you: ANY Who are you requesting to speak with (clinical staff, provider, specific staff member): KWAN What was the call regarding: PT IS WONDERING IF WE HAVE HER INR RESULTS BACK documented in this encounter Plan of Treatment Upcoming Encounters Date Type Department Care Team (Late st Contact Info) Description 10/21/2024 2:15 PM EDT Office Visit [facility] SLEEP MEDICINE [address] [place] [address] Shannen Horta, BATH ATTENDANT [address] [place], [place] [address] 12/02/2024 3:30 PM EDT Office Visit [facility] CARDIOLOGY [address] [place] [address] Sujit Reyes MD [address] [place] [facility] [address] [place] [address] 01/19/2025 1:45 PM EST Office Visit [facility] CARDIOLOGY [address] [facility] [address] [place] [address] Naveen Velasquez MD [address] [address] [place] [address] documented as of this encounter Visit Diagnoses Not on filedocumented in this encounter Care Teams Nnps Relationship Specialty Start Date End Date Alisa Kunz DO [address] [place], [place] [id number] PCP - General Internal Medicine 04/26/21 documented as of this encounter
--- OUTSIDE RECORDS SUMMARY | 2024-10-18 15:01 | XMS_ITS | Encounter Summary ---
[facility] Address [address] [place] [address] Care Team Providers Care Asset Protection Greeter Name Role Phone Alisa Kunz Primary Care Provider +1- [phone] Encounter Details Date Type Department Care Team (Late st Contact Info) Description 09/21/2024 Telephone [facility]TICO[facility]IC [address] [facility] [address] [place] [address] Marj Delgado, PharmD 1740 [place] [address] Social History Tobacco Use Types [...] AM EDT Shown, Jodie Meza RN * [place]rett Suicide Severity Rating Scale (Screener/Recent Self-Report) Question [...] Visit [facility] SLEEP MEDICINE [address] [facility] [place] [address] Shannen Horta, YAMILET [address] [facility] [address] [place] [address] 12/02/2024 3:30 PM EDT Office Visit [facility] CARDIOLOGY [address] [place] [address] Sujit Reyes MD [address] [facility] [address] [place], [place] [address] 01/19/2025 1:45 PM EST Office Visit [facility] CARDIOLOGY [address] [facility] [address] [place] [address] Naveen Velasquez MD [address] [facility] [address] [place], [place] [address] documented as of this encounter Visit Diagnoses Not on filedocumented in this encounter Care Teams Asset Protection Greeter Relationship Specialty Start Date End Date Alisa Kunz DO [address] [place] [address] PCP - General Internal Medicine 04/26/21 documented as of this encounter
--- OUTSIDE RECORDS SUMMARY | 2024-10-18 15:01 | XMS_ITS | Encounter Summary ---
[facility] Address [address] [place] [address] Care Team Providers Care Public Health Veterinarian Name Role Phone Alisa Kunz Primary Care Provider +1- [phone] Encounter Details Date Type Department Care Team [...] Description 10/21/2024 2:15 PM EDT Office Visit [facility] SLEEP MEDICINE [address] [place] [address] Shannen Horta, SENIOR ELECTRICAL DESIGN ENGINEER 1720 [facility] [address] [place] [address] 12/02/2024 3:30 PM EDT Office Visit [facility] CARDIOLOGY [address] [place] [address] Sujit eRyes MD 1720 [facility] [address] [place] [address] 01/19/2025 1:45 PM EST Office Visit [facility] CARDIOLOGY 17[address] [facility] [address] [place] [address] Naveen Velasquez MD 17[address] [facility] [address] [place] [address] documented as of this encounter Visit Diagnoses Not on filedocumented in this encounter Care Teams Public Health Veterinarian Relationship Specialty Start Date End Date Alisa Kunz DO [address] [place], [place] [id number] PCP - General Internal Medicine 04/26/21 documented as of this encounter
--- OUTSIDE RECORDS SUMMARY | 2024-10-18 15:01 | XMS_ITS | Encounter Summary ---
[facility] Address [address] [place] [address] Care Team Providers Care Project Engineering Manager Name Role Phone Alisa Kunz Primary Care Provider +1- [phone] Encounter Details Date Type Department Care Team [...] 9:45 AM EDT Tanya Boyce RN * [place] Suicide Severity Rating Scale (Screener/Recent Self-Report) Question Answer Date of Assessment Author 6. Suicidal Behavior (Lifetime) No 09/24/2024 9:45 AM EDT Cassandra Parisi RN documented as of this encounter Plan of Treatment Upcoming Encounters Date Type Department Care Team (Late st Contact Info) Description 10/21/2024 2:15 PM EDT Office Visit [facility] SLEEP MEDICINE [address] [place] [address] Shannen Horta, YAMILET 1720 [facility] [address] [place] [address] 12/02/2024 3:30 PM EDT Office Visit [facility] CARDIOLOGY [address] [place] [address] Sujit Reyes MD [address] [place] [address] 01/19/2025 1:45 PM EST Office Visit [facility] CARDIOLOGY [address] [place] [address] Naveen Velasquez MD [address] [place] [address] documented as of this encounter Visit Diagnoses Not on filedocumented in this encounter Care Teams Project Engineering Manager Relationship Specialty Start Date End Date Alisa Kunz DO [address] [facility] 304 [place] [address] PCP - General Internal Medicine 04/26/21 documented as of this encounter
--- OUTSIDE RECORDS SUMMARY | 2024-10-18 15:01 | XMS_ITS | Encounter Summary ---
[facility] Address [address] [place] [address] Care Team Providers Care Photo Producer Name Role Phone Alisa Kunz Primary Care Provider +1- [phone] Encounter Details Date Type Department Care Team (Late st Contact Info) Description 09/16/2024 Prep for Surgery [facility] ORDERS ONLY 1740 [place] [address] Peg Nails PAEsthelaC 1720 [facility] [address] E [address] [place] [address] Social History Tobacco Use Types [...] Description 10/21/2024 2:15 PM EDT Office Visit [facility] SLEEP MEDICINE [address] [place] [address] Shannen Horta, HARP REPAIRER [address] [facility] [address] [place], [place] [address] 12/02/2024 3:30 PM EDT Office Visit [facility] [address] [facility] [facility] [address] Sujit Reyes MD [address]20 [facility] [address] E [address] [place], [place] [address] 01/19/2025 1:45 PM EST Office Visit [facility] CARDIOLOGY [address] [facility] [address] [place] [address] Naveen Velasquez MD [address] [facility] [address] [place] [address] documented as of this encounter Visit Diagnoses Not on filedocumented in this encounter Care Teams Photo Producer Relationship Specialty Start Date End Date Alisa Kunz DO [address] [place] [address] PCP - General Internal Medicine 04/26/21 documented as of this encounter
[2024-10-18 15:43] LABS: INR 2.14 (0.9-1.1); Prothrombin Time 22.5 seconds (10.1-12.5)
== END 2024-10-18 23:59 | disposition home or self-care (01) ==
LOC: LAB 14:49
PROVIDERS: PCP Internal Medicine; Visit Provider Nurse Practitioner Gerontology
DX: I51.3 Intracardiac thrombosis, not elsewhere classified (principal); I24.0 Acute coronary thrombosis not resulting in myocardial infarction
CPT/HCPCS: 36415; 85610

== ENCOUNTER 2024-10-26 13:05 | Outpatient (CLI) | payer MEDICARE, SELFPAY ==
--- OUTSIDE RECORDS SUMMARY | 2019-03-15 14:10 | XMS_ITS | Encounter Summary ---
[facility] [address] [place] [address] Care Team Providers Care Applications Chemist Name Role Phone Jackson Malave MD Primary Care Provid er Reason for Referral * Hospital - Outpatient (Routine) - Closed Specialty Diagnoses / Procedures Referred By Luis Armando Referred To Contact Sleep Medicine Diagnoses EWELINA (obstructive sleep apnea) Fatigue, unspecified type Procedures Home Sleep Study Jesu Duarte MD Phone: tel: fax: [facility] [address] [place] [phone] Phone: tel: fax: Referral ID Status Reason Start Date Expiration Date Visits Re quested Visits Authorized [id number] Closed 02/09/2019 02/09/2020 1 1 Reason for Visit * Hospital - Outpatient (Routine) - Closed Specialty Diagnoses / Procedures Referred By Contdarwin t Referred To Contact Sleep Medicine Diagnoses EWELINA (obstructive sleep apnea) Fatigue, unspecified type Procedures Home Sleep Study Jesu Duarte MD Phone: tel: fax: [facility] [address] [facility] [address] [place] [address] Phone: tel: fax: Referral ID Status Reason Start Date Expiration Date Visits Re quested Visits Authorized [id number] Closed 02/09/2019 02/09/2020 1 1 Encounter Details Date Type Department Care Team (Late st Contact Info) Description 03/15/2019 1:10 PM EST Hospital Encounter [facility] [address] [facility] [address] [place] [address] Jesu Duarte MD [address] [place] [address] EWELINA (obstructive sleep apnea); Fatigue, [...] 10:26 AM EDT Cece Prieto RN * [place] Suicide Severity Rating Scale (Screener/Recent Self-Report) Question Answer Date of Assessment Author 6. Suicidal Behavior (Lifetime) No 10:26 AM EDT Cece Prieto RN documented as of this encounter Plan of Treatment Upcoming Encounters Date Type Department Care Team (Late st Contact Info) Description 12/02/2024 3:30 PM EDT Office Visit [facility] [address] [facility] [place] [address] Sujit Reyes MD [facility] [address] [place] [address] 01/19/2025 1:45 PM EST Office Visit [facility] [address] [place] [address] Naveen Velasquez MD [address] [place] [address] documented as of this encounter Procedures Procedure [...] had a home sleep test with an [employer] Night One device that measured airflow at [...] documented as of this encounter Care Teams Applications Chemist Relationship Specialty Start Date End Date Jackson Malave MD PCP - General Internal Medicine 12/09/18 04/25/21 documented as of this encounter
--- OUTSIDE RECORDS SUMMARY | 2024-08-27 13:30 | XMS_ITS | Encounter Summary ---
[facility] Address [address] [place] [address] Care Team Providers Care Asbestos Textile Supervisor Name Role Phone Alisa Kunz Primary Care Provider +1- [phone] Encounter Details Date Type Department Care Team (Latest Contact Info) Description 08/27/2024 1:30 PM EDT Anticoagulation Visit [facility] [address] [facility] [address] [place] [address] Left ventricular apical thrombus (Primary Dx); Left ventricular apical thrombus without [place] Social History Tobacco Use Types Packs/Day Years [...] Laughlin, PharmD - 08/27/2024 1:30 PM EDT [facility] Anticoagulation Clinic Progress Note Patient Demographics Method of INR reporting: [employer] Home Monitor SN [id number] Estimated OOP Cost: Indication: Left Ventricular Atypical Thrombus (~2012) Referring Provider Nanette Pryor APRN Reason patient is not on a DOAC: Goal INR: 2-3 Warfarin Start Date ~02/12/24 Reason patient is not on home monitor: [id number]: Planned Duration of Therapy Indefinite Relevant medical [...] - HM 1.4 - Clinic 1.32 - STREET OPENINGS INSPECTOR Notes Admitted Rec'd 05/27 HM 1-BILL TODAY HM 2- no leonid; In clinic HM 3 - no bill HM 4 - no bill HM 1- BILL TODAY HM 2 - no bill Rec'd 08/11 HM 3 - no bill Patient Contact Information Verbal release: Signed 03/05/24 Preferred contact number: [phone] Alternative contact number(s): [phone] (Doron) [phone] (Ruthie) [phone] (Madyson) Patient Appropriate for WarfNoCall ? No [...] initially held and then restarted 08/20. Had building stonecutter salad yesterday or day before with regular [...] Tuesdays. Verbal and written information provided. Michelle [place] Felipe expresses understanding by teach back and has no further questions at this time. Home monitor information below: Test strips on hand: 8 Barcode number: [id number] Test strip LOT: [id number] EXP: 03/2026 Serial number: [id number] [id number] Supplies billing code used: last 08/04/24] - Next must be on or after 09/01/24 Transfer Tube Lot number: [id number] Safety Lancets: Lot: Exp: Billing: bill must [...] Description 12/02/2024 3:30 PM EDT Office Visit [facility] C[facility] [address] [facility] [place] [address] Sujit Reyes MD [address] [facility] [address] [facility], [place] [id number] 01/19/2025 1:45 PM EST Office Visit [facility] [address] [place] [address] Nvaeen Velasquez MD [address] [place] [address] Scheduled Orders Name Type Priority Associated Diagnoses Orde r Schedule Protime-INR Lab STAT Left ventricular apical thrombus Left ventricular apical thrombus without [place] Twice a Week for 52 Occurrences starting 08/27/2024 until 08/27/2025, 1 completed documented as of this encounter Procedures Procedure Name Priority Date/Time Associated Diagnosis Comments POCT PROTIME - INR Routine 08/27/2024 2: 16 PM EDT documented in this encounter Results * (ABNORMAL) Protime-INR (08/27/2024 3:01 PM EDT) Protime 17.2(H) 12.2 - 15.3 Seconds 08/27/2024 3:21 PM EDT [facility] INR 1.32(H) 0.89 - 1.12 08/27/2024 3:21 PM EDT [facility] Blood Venipuncture / Unknown 08/27/2024 3:01 PM EDT 08/27/2024 3:01 PM EDT Nanette Pryor BARRATTE OPERATOR LAB BLOOD ORDERABLES Fi nal Result [facility]
[address] [place] [address], * (ABNORMAL) POC Protime / INR (08/27/2024 2:16 PM EDT) Protime 16.8(H) 10.0 - 13.8 seconds 08/27/2024 2:20 PM EDT [facility] INR 1.4(H) 0.91 - 1.09 08/27/2024 2:20 PM EDT [facility] Blood 08/27/2024 2:16 PM EDT 08/27/2024 2:20 PM EDT us Nanette Pryor BARRATTE OPERATOR POINT OF CARE TEST LISETHSofiya LAWANDA Final Result Performing Organization Address City/State/[facility] Co de Phone Number [facility]
[address] [place] [address], documented in this encounter Visit Diagnoses Diagnosis Left ventricular apical thrombus- Primary Left ventricular apical thrombus without [place] documented in this encounter Care Teams Asbestos Textile Supervisor Relationship Specialty Start Date End Date Alisa Kunz DO [address] [place] [address] PCP - General Internal Medicine 04/26/21 documented as of this encounter
--- OUTSIDE RECORDS SUMMARY | 2024-08-27 14:55 | XMS_ITS | Encounter Summary ---
Author Organization [facility] ystem Address [address] [place] [address] Care Team Providers Care Member Service Representative Name Role Phone Alisa Kunz Primary Care Provider +1- [phone] Encounter Details Date Type Department Care Team (Late st Contact Info) Description 08/27/2024 2:55 PM EDT Lab [facility] [address] [facility] [place] [address] Left ventricular apical thrombus; Left ventricular apical thrombus without [place] Social History Tobacco Use Types Packs/Day Years [...] Description 12/02/2024 3:30 PM EDT Office Visit [facility] [address] [place] [id number] Sujit Reyes MD [address] [facility] [address] [place], [place] [id number] 01/19/2025 1:45 PM EST Office Visit [facility] [address] [facility] [address] [place] [address] Naveen Velasquez MD [address] [facility] [address] [place] [address] documented as of this encounter Procedures Procedure Name Priority Date/Time Associated Diagnosis Comments PROTIME-INR STAT 08/27/2024 3:01 PM EDT Left ventricular apical thrombus Left ventricular apical thrombus without [place] documented in this encounter Results * (ABNORMAL) Protime-INR (08/27/2024 3:01 PM EDT) Protime 17.2(H) 12.2 - 15.3 Seconds 08/27/2024 3:21 PM EDT [facility] INR 1.32(H) 0.89 - 1.12 08/27/2024 3:21 PM EDT [facility] Blood Venipuncture / Unknown 08/27/2024 3:01 PM EDT 08/27/2024 3:01 PM EDT us Nanette Pryor [employer] COMMISSIONER LAB BLOOD ORDERABLES Fi nal Result [facility]
[address] [place] [address], documented in this encounter Visit Diagnoses Diagnosis Left ventricular apical thrombus Left ventricular apical thrombus without [place] documented in this encounter Care Teams Member Service Representative Relationship Specialty Start Date End Date Alisa Kunz DO [address] [place] [address] PCP - General Internal Medicine 04/26/21 documented as of this encounter
--- OUTSIDE RECORDS SUMMARY | 2024-09-08 11:20 | XMS_ITS | Encounter Summary ---
Author Organization [facility] Address [address] [place] [address] Care Team Providers Care Flux Tube Attendant Name Role Phone Alisa Kunz DO Primary Care Provider [phone] Kodi Bustos DO Unavailable [phone] Sujit Arriola MD Unavailable [phone] Sujit Reyes MD Unavailable [phone] Patricia Yañez LPN Unavailable Unavailab Zee Lr DO Unavailable [phone] Reason for Referral * Imaging (Urgent) - Closed Specialty Diagnoses / Procedures Referred By Contdarwin t Referred To Contact Cardiology Diagnoses Localized swelling, mass and lump, left upper limb Procedures VAS US Venous Duplex Upper Extremity Unilateral Left Alisa Kunz DO [address] [address] Phone: tel: fax: Referral ID Status Reason Start Date Expiration Date V isits Requested Visits Authorized [id number] Closed Perform Procedure 09/08/2024 03/10/2026 1 1 Encounter Details Date Type Department Care Team (Late st Contact Info) Description 09/08/2024 11:20 AM EDT Office Visit [facility] Internal Medicine [address] [place] [address] Alisa Kunz, [address] [place] [address] Shortness of breath (Primary Dx); [...] week 08/30/2022 How often do you attend [facility] or oriental orthodox services? 1 to 4 times per year 08/30/2022 Do you belong to any clubs o r organizations such as denominational groups, unions, fraternal or athletic groups, or [...] Recorded Patient Health Questionnaire-2 Score 0 09/08/2024 [facility] [place] of Occupat ional Health - Occupational Stress [...] the past 12 m [facility], were you homeless or living in a [...] the past 12 m [facility], were you homeless or living in a [...] drink first t anselmo in the morning (EYE-CPS TEAM LEAD) to steady your nerves or to [...] at all 09/08/2024 11:19 AM EDT Shashank Brurows Patient Health Questionnaire -2 Score 0 09/08/2024 11:19 AM EDT Shashank Burrows * Question Answer Date of Assessment Author Trouble falling or staying asleep, or sleeping too much Not at all 09/08/2024 11:19 AM EDT Shashank Burrows Feeling tired or having avsquez le energy Not at all 09/08/2024 11:19 [...] AM EDT Transitional Care Management Progress Note: [id number] Visit Patient: Michelle Felipe : 1950 PCP: [...] swelling with mild dusky erythema and decreased rewinder operator strength s/t swelling, +mild right ankle [...] bites, or rashes noted over BUE. Decreased rewinder operator strength in left hand s/t swelling. [...] (08/17/24) showing mild pHTN. - Follows with [facility]. - Continue home Lasix 40 mg [...] Zee Lazar DO PGY-1, [facility] Internal Medicine [1] Past Medical History: [...] or viral conjunctivitis vs. Scleritis. - Needs [facility] eye exam. - Was ableto get patient in with [facility] ophthalmology right after our [...] CARDIAC PACEMAKER PLACEMENT N/A Pacemaker Placement from [facility] CARPAL TUNNEL RELEASE N/A Neuroplasty Decompression Median Nerve At Carpal Tunnel from [facility] CERVICAL BIOPSY W/ LOOP ELECTRODE EXCISION 2010 SECTION, CLASSIC 1977, 1979 SECTION, LOW TRANSVERSE N/A Section from [facility] COLONOSCOPY N/A Complete Colonoscopy from [facility] CORONARY ARTERY BYPASS GRAFT N/A CABG from [facility] EYE SURGERY N/A Eye Surgery from [facility] FRACTURE SURGERY SPINE SURGERY THORACENTESIS TOE SURGERY Left 02/07/2024 hematoma removal of upper skin on L big toe TONSILLECTOMY N/A Tonsillectomy from [facility] [3] Family History Problem Relation Name Age of Onset Conversions - Other Mother cindi stamper alfredito kelin Goiter (Diffuse Nontoxic) Heart disease Mother cindi stamper alfredito kelin Hypertension Mother cindi stamper alfredito kelin Stroke Mother cindi stamper alfredito kelin COPD Mother cindi stamper alfredito kelin Alpha-1 antitrypsin deficiency Mother cindi stamper alfredito kelin Arthritis Father Doron E [place] Hypercholesterolemia Father Doron E [place] Obesity Father Doron E Alfredito COPD Father Doron E [place] Alcohol abuse Father Doron E Alfredito Diabetes [...] Care Team (Late st Contact Info) Description 10/27/2024 1:40 PM EDT Office Visit [facility] Endocrinology [address] [place] [address] Anne-Marie Kolb L, PURCHASING ANALYST [address] [place] [phone] 12/06/2024 11:20 AM EDT Office Visit [facility] Internal Medicine [address] [place] [phone] Alisa Kunz L, DO [address] [place] [address] 12/23/2024 4:00 PM EDT Office Visit [facility] Medicine Specialties [address] [place] [phone] Lavern Shoemaker MD [address] [place] [address] 02/02/2025 8:40 AM EST Office Visit [facility] Internal Medicine [address] [place] [phone] ZeAlisa willett L, DO [address] [place] [address] documented as of this encounter [...] - 99 mg/dL 09/08/2024 4:06 PM EDT [facility] BUN, Plasma 24(H) 8 - 23 mg/dL 09/08/2024 4:06 PM EDT [facility] Creatinine, Plasma 0.92 0.60 - 1.10 mg/dL 09/08/2024 4:06 PM EDT [facility] BUN/Creatinine Ratio 26 09/08/2024 4:06 PM EDT [facility] Sodium, Plasma 131(L) 136 - 145 mmol/L 09/08/2024 4:06 PM EDT [facility] Potassium, Plasma 4.0 3.6 - 4.9 mmol/L 09/08/2024 4:06 PM EDT [facility] Chloride, Plasma 90(L) 97 - 107 mmol/L 09/08/2024 4:06 PM EDT [facility] CO2, Plasma 27 22 - 29 mmol/L 09/08/2024 4:06 PM EDT [facility] Anion Gap 14 6 - 16 mmol/L 09/08/2024 4:06 PM EDT [facility] Total Calcium, Plasma 8.9 8.9 - 10.2 mg/dL 09/08/2024 4:06 PM EDT [facility] Total Protein 7.4 6.3 - 7.9 g/dL 09/08/2024 4:06 PM EDT [facility] Albumin, Plasma 3.4(L) 3.5 - 5.2 g/dL 09/08/2024 4:06 PM EDT [facility] AST, Plasma 34 10 - 35 U/L 09/08/2024 4:06 PM EDT [facility] ALT, Plasma 25 10 - 35 U/L 09/08/2024 4:06 PM EDT [facility] Alkaline Phosphatase, Plasma 116 46 - 142 U/L 09/08/2024 4:06 PM EDT [facility] Total Bilirubin, Plasma 0.4 0.2 - 1.1 mg/dL 09/08/2024 4:06 PM EDT [facility] eGFRcr 65.9 mL/min/1.7 3m*2 09/08/2024 4:06 PM EDT [facility] Comment:Reported eGFRcr in m L/min/1.73m2 is based the CKD-EPI 2020 equation that does not use a race coefficient. Blood Venous blood specimen / Unknown Venipuncture / Unknown 09/08/2024 1:33 PM EDT 09/08/2024 1:33 PM EDT us Alisa L Ze DO LAB BLOOD ORDERABLES Final Res ult [facility] [address] [place] [address] * (ABNORMAL) CBC and Differential (09/08/2024 1:33 PM EDT) WBC Count 7.66 3.70 - 10.30 10*3/uL LAB HEMATOLOGY METHOD 09/08/2024 4:11 PM EDT [facility] RBC Count 3.47(L) 3.90 - 5.20 10*6/uL LAB HEMATOLOGY METHOD 09/08/2024 4:11 PM EDT [facility] HGB 10.2(L) 11.2 - 15.7 g/dL LAB HEMATOLOGY METHOD 09/08/2024 4:11 PM EDT [facility] HCT 32.8(L) 34.0 - 45.0 % LAB HEMATOLOGY METHOD 09/08/2024 4:11 PM EDT [facility] Platelet Count 534(H) 155 - 369 10*3/uL LAB HEMATOLOGY METHOD 09/08/2024 4:11 PM EDT [facility] MCV 95 79 - 98 fL LAB HEMATOLOGY METHOD 09/08/2024 4:11 PM EDT [facility] MCH 29.4 26.0 - 32.0 pg LAB HEMATOLOGY METHOD 09/08/2024 4:11 PM EDT [facility] MCHC 31.1 30.7 - 35.5 g/dL LAB HEMATOLOGY METHOD 09/08/2024 4:11 PM EDT [facility] RDW 15.4(H) 11.5 - 14.5 % LAB HEMATOLOGY METHOD 09/08/2024 4:11 PM EDT [facility] MPV 9.3 8.8 - 12.5 fL LAB HEMATOLOGY METHOD 09/08/2024 4:11 PM EDT [facility] nRBC 0.0 <=0.0 per 100 WBCs LAB HEMATOLOGY METHOD 09/08/2024 4:11 PM EDT [facility] Differential Type Automated LAB HEMATOLOGY METHOD 09/08/2024 4:11 PM EDT [facility] Neutrophils % 80 % LAB HEMATOLOGY METHOD 09/08/2024 4:11 PM EDT [facility] Lymphocytes % 8 % LAB HEMATOLOGY METHOD 09/08/2024 4:11 PM EDT [facility] Monocytes % 9 % LAB HEMATOLOGY METHOD 09/08/2024 4:11 PM EDT [facility] Eosinophils % 1 % LAB HEMATOLOGY METHOD 09/08/2024 4:11 PM EDT [facility] Basophils % 1 % LAB HEMATOLOGY METHOD 09/08/2024 4:11 PM EDT [facility] Immature Granulocytes % 1 % LAB HEMATOLOGY METHOD 09/08/2024 4:11 PM EDT [facility] Neutrophils Absolute 6.18(H) 1.60 - 6.10 10*3/uL LAB HEMATOLOGY METHOD 09/08/2024 4:11 PM EDT [facility] Lymphocytes Absolute 0.64(L) 1.20 - 3.90 10*3/uL LAB HEMATOLOGY METHOD 09/08/2024 4:11 PM EDT [facility] Monocytes Absolute 0.65 0.30 - 0.90 10*3/uL LAB HEMATOLOGY METHOD 09/08/2024 4:11 PM EDT [facility] Eosinophils Absolute 0.06 0.00 - 0.50 10*3/uL LAB HEMATOLOGY METHOD 09/08/2024 4:11 PM EDT [facility] Basophils Absolute 0.08 0.00 - 0.10 10*3/uL LAB HEMATOLOGY METHOD 09/08/2024 4:11 PM EDT [facility] Immature Granulocytes Absolute 0.05 0.00 - 0.06 10*3/uL LAB HEMATOLOGY METHOD 09/08/2024 4:11 PM EDT [facility] Blood Venous blood specimen / Unknown Venipuncture / Unknown 09/08/2024 1:33 PM EDT 09/08/2024 1:33 PM EDT [facility] - 09/08/2024 4:11 PM EDT Therapeutic decision making should be based on absolute values, rather than percentages. us Alisa L Ze DO LAB BLOOD ORDERABLES Final Res ult Performing Organization Address City/[facility]/ZIP Co de Phone Number [facility] [address] [place] [address] * Ferritin (09/08/2024 1:33 PM EDT) Ferritin, Serum 102 13 - 150 ng/mL 09/08/2024 4:37 PM EDT [facility] Blood Venous blood specimen / Unknown Venipuncture / Unknown 09/08/2024 1:33 PM EDT 09/08/2024 1:33 PM EDT us Alisa L Ze DO LAB BLOOD ORDERABLES Final Res ult Performing Organization Address [facility]/ZIP Co de Phone Number [facility] [address] [place] [address] * (ABNORMAL) Iron & Total Iron Binding Capacity, Plasma (Includes Transferrin) (09/08/2024 1:33 PM EDT) Iron, Plasma 26(L) 30 - 160 ug/dL 09/08/2024 4:06 PM EDT [facility] Transferrin, Plasma 262 200 - 360 mg/dL 09/08/2024 4:06 PM EDT [facility] Total Iron Binding Capacity, Plasma 328 240 - 450 ug/mL 09/08/2024 4:06 PM EDT [facility] Transferrin Saturation 8(L) 14 - 50 % 09/08/2024 4:06 PM EDT [facility] Blood Venous blood specimen / Unknown Venipuncture / Unknown 09/08/2024 1:33 PM EDT 09/08/2024 1:33 PM EDT us Alisa L Ze DO LAB BLOOD ORDERABLES Final Res ult Performing Organization Address [facility]/ZIP Co de Phone Number [facility] [address] [place] [address] * SARS-CoV-2, Flu A, Flu B, and RSV (09/08/2024 1:09 PM EDT) SARS CoV-2/COVID-19 RNA PCR Result Not Detected Not Detected 09/09/2024 10:48 AM EDT [facility] Influenza A Virus PCR Result Not Detected Not Detected 09/09/2024 10:48 AM EDT [facility] Influenza B Virus PCR Result Not Detected Not Detected 09/09/2024 10:48 AM EDT [facility] Respiratory Syncytial Virus (RSV) PCR Result Not Detected Not Detected 09/09/2024 10:48 AM EDT [facility] Swab Nasopharyngeal structure / Unknown Non-blood Collection / Unknown 09/08/2024 1:09 PM EDT 09/08/2024 4:50 PM EDT Narrative [facility] - 09/09/2024 10:48 AM [...] This test was performed on the [employer] Respiratory Viral Panel, a PCR-based method. Negative [...] MICROBIOLOGY - GENERAL ORD ERABLES Final Result [facility] [address] [place] [address] documented in this encounter Visit Diagnoses Diagnosis [...] documented as of this encounter Care Teams Flux Tube Attendant Relationship Specialty Start Date End Date Alisa Kunz DO [address] [place] [address] PCP - General Internal Medicine 03/13/21 Kodi Bustos DO [address] [place] [phone] Surgeon Cardiothoracic Surgery 11/06/22 Sujit Arriola MD [address] [place] [address] Consulting Physician Pulmonary Disease 11/06/22 Sujit Reyes MD [address] [place] [address] Referring Physician 12/04/22 Patricia Yañez LPN [facility] TCM Nurse 08/25/24 10/17/24 Zee Lazar DO [address] [place] [id number] Resident 09/08/24 documented as of this encounter
--- OUTSIDE RECORDS SUMMARY | 2024-09-08 13:36 | XMS_ITS | Encounter Summary ---
Author Organization [facility] Address [address] [place] [address] Care Team Providers Care Psychiatric Lpn Name Role Phone Alisa Kunz DO Primary Care Provider Kodi Bustos DO Unavailable [phone] Sujit Arriola MD Unavailable [phone] Sujit Reyes MD Unavailable [phone] Patricia Yañez LPN Unavailable Unavailab Zee Lr DO Unavailable [phone] Encounter Details Date Type Department Care Team (Latest Contact Info) Description 09/08/2024 1:36 PM EDT - 09/08/2024 1:54 PM EDT Hospital Encounter [facility] [address], 1st [place] [phone] Shortness of breath Discharge Disposition: Home or [...] often do you attend chur ch or caodaism services? 1 to 4 times per year 08/30/2022 Do you belong to any clubs o r organizations such as scientologist groups, unions, fraternal or athletic groups, or [...] Recorded Patient Health Questionnaire-2 Score 0 09/08/2024 [facility] of Occupat ional [...] time in the past 12 m [facility], were you homeless or living in [...] time in the past 12 m [facility], were you homeless or living in a long-term (including now)? 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 0 08/14/2024 CAGE Questionnaire Score 0 025 Utilities Answer Date Recorded In the past 12 months has th e [employer], gas, oil, or water company threatened to [...] DIAL)Indications:T ype 1 diabetes mellitus with hyperglycemia ([facility]) Inject 14 Units under the skin every morning. 4.5 mL 3 08/04/2024 insulin lispro (HumaLOG KWIKPEN) 100 UNIT/ML injection penIndications:Typ e 1 diabetes mellitus with hyperglycemia ([facility]/HCC) Inject 2-6 units before meals plus 1:60>150. [...] tabletIndications: Systemic lupus erythematosus (SLE) in adult ([facility]) Take 2 tablets by mouth 2 times a day. 360 tablet 1 08/27/2024 oxygen (O2) gas Inhale 2 L nightly. via nasal canula Pitavastatin Calcium (Livalo) 4 MG tabletIndications: Type 1 diabetes mellitus with other specified complication ([facility]),Dyslipid emia Take 1 tablet by mouth daily. [...] tabletIndications: Systemic lupus erythematosus (SLE) in adult ([facility]) Take 1 tablet by mouth daily. 90 tablet 1 07/21/2024 5 nitroglycerin (Nitrostat) 0.[address] 1 tablet under the tongue every 5 minutes as needed for chest pain. 5 Probiotic Product (acidophilus probiotic blend) capsule Take 1 capsule by mouth every morning. 5 spironolactone (Aldactone) 25 MG tablet Take 0.25 tablets by mouth daily. 30 tablet 07/20/2024 5 documented as of this encounter Plan of Treatment Upcoming Encounters Date Type Department Care Team (Late st Contact Info) Description 10/27/2024 1:40 PM EDT Office Visit [facility] Endocrinology [address] [place], [place] [address] [address] Anne-Marie Kolb L, S[place] HISTORY PROFESSOR [address] [place] [phone] 12/06/2024 11:20 AM EDT Office Visit [facility] Internal Medicine [address], 3rd [place] [address] Alisa Kunz L, DO [address] [place] [address] 12/23/2024 4:00 PM EDT Office Visit [facility] Medicine Specialties [address], 2nd [place] [address] Lavern Shoemaker MD [address] [place], [place] [phone] 02/02/2025 8:40 AM EST Office Visit [facility] Internal Medicine [address], 3rd [place] [address] Alisa Kunz L, DO [address] [place] [address] documented as of this encounter [...] signing this report, I, the attending physician, shewtha I have personally reviewed the images/data for [...] documented as of this encounter Care Teams Psychiatric Lpn Relationship Specialty Start Date End Date Alisa Kunz DO [address] [place] [phone] PCP - General Internal Medicine 03/13/21 Kodi Bustos DO [address] [address] Surgeon Cardiothoracic Surgery 11/06/22 Sujit Arriola MD [address] [place] [address] Consulting Physician Pulmonary Disease 11/06/22 Sujit Reyes MD [address] [place] [address] Referring Physician 12/04/22 Patricia Yañez LPN [facility] TCM Nurse 08/25/24 10/17/24 Zee Lazar DO [address] [place], [place] [phone] Resident 09/08/24 documented as of this encounter
--- OUTSIDE RECORDS SUMMARY | 2024-09-08 13:55 | XMS_ITS | Encounter Summary ---
Author Organization [facility] Address [address] [place] [address] Care Team Providers Care Environmental Department Manager Name Role Phone Alisa Kunz DO Primary Care Provider [phone] Kodi Bustos DO Unavailable [phone] Sujit Arriola MD Unavailable [phone] Sujit Reyes MD Unavailable [phone] Patricia Yañez LPN Unavailable Unavailab Zee Lr DO Unavailable [phone] Reason for Referral * Imaging (Urgent) - Closed Specialty Diagnoses / Procedures Referred By Contac t Referred To Contact Cardiology Diagnoses Localized swelling, mass and lump, left upper limb Procedures VAS US Venous Duplex Upper Extremity Unilateral Left Alisa Kunz DO [address] [address] Phone: tel: fax: Referral ID Status Reason Start Date Expiration Date V isits Requested Visits Authorized [id number] Closed Perform Procedure 09/08/2024 03/10/2026 1 1 Reason for Visit * Imaging (Urgent) - Closed Specialty Diagnoses / Procedures Referred By Contac t Referred To Contact Cardiology Diagnoses Localized swelling, mass and lump, left upper limb Procedures VAS US Venous Duplex Upper Extremity Unilateral Left Ze, Alisa L, DO [address] [place] [address] Phone: tel: fax: Referral ID Status Reason Start Date Expiration Date V isits Requested Visits Authorized [id number] Closed Perform Procedure 09/08/2024 03/10/2026 1 1 Encounter Details Date Type Department Care Team (Latest Contact Info) Description 09/08/2024 1:55 PM EDT - 09/08/2024 11:59 PM EDT Hospital En[facility] [address] [place] [address] Localized swelling, mass and lump, [...] Recorded Patient Health Questionnaire-2 Score 0 09/08/2024 [facility] - Occupational Stress Questionnaire Answer Date [...] place to sleep or slept in a snf (including now)? No 12/30/2023 PHQ-9 Answer Date [...] were you homeless or living in a snf (including now)? No 05/27/2024 Humiliation, Afraid, Rape, [...] in the past 12 m [facility], were you homeless or living in a snf (including now)? No 09/13/2024 CAGE ASSESSMENT Answer [...] drink first t anselmo in the morning (EYE-EMBEDDED SOFTWARE ARCHITECT) to steady your nerves or to get rid of a hangover? 0 08/14/2024 CAGE Questionnaire Score 0 025 Utilities Answer Date Recorded In the past 12 months has th e kapturem, oil, or water [employer] threatened to shut off services in your [...] DIAL)Indications:T ype 1 diabetes mellitus with hyperglycemia ([facility]) Inject 14 Units under the skin every morning. 4.5 mL 3 08/04/2024 6 insulin lispro (HumaLOG KWIKPEN) 100 UNIT/ML injection penIndications:Typ e 1 diabetes mellitus with hyperglycemia ([facility]) Inject 2-6 units before meals plus 1:60>150. [...] tabletIndications: Systemic lupus erythematosus (SLE) in adult ([facility]) Take 2 tablets by mouth 2 times a day. 360 tablet 1 08/27/2024 oxygen (O2) gas Inhale 2 L nightly. via nasal canula Pitavastatin Calcium (Livalo) 4 MG tabletIndications: Type 1 diabetes mellitus with other specified complication ([facility]),Dyslipid emia Take 1 tablet by mouth daily. [...] Take 1 tablet by mouth every morning. 07/04/202 5 clobetasol (Temovate) 0.05 % cream Apply 1 Application topically 2 times a day as needed. 5 furosemide (Lasix) 40 MG tablet Take 1 tablet by mouth daily. 30 tablet 07/15/2024 5 gabapentin (Neurontin) 300 MG capsule Take 1 capsule by mouth 2 times a day. 60 capsule 08/24/2024 5 hydroxychloroquine (Plaquenil) 200 MG tabletIndications: Systemic lupus erythematosus (SLE) in adult ([facility]) Take 1 tablet by mouth daily. 90 [...] Description 10/27/2024 1:40 PM EDT Office Visit [facility] Endocrinology [address] [place] [phone] Anne-Marie Kolb, SHOE STITCHER ODD [address] [facility] [address] [place] [address] 12/06/2024 11:20 AM EDT Office Visit [facility] Internal Medicine [address]rd [place] [address] Alisa Kunz, DO [address] [place] [address] 12/23/2024 4:00 PM EDT [facility] [address], [address]nd [place] [address] Lavern Shoemaker MD [address] [place] [address] 02/02/2025 8:40 AM EST Office Visit [facility] Internal Medicine [address], [address]rd [place] [address] Alisa Kunz DO [address] [place] [address] documented as of this encounter [...] Sonam Welsh MD on 09/09/2024 8:52 AM Alisa Kunz [...] documented as of this encounter Care Teams Environmental Department Manager Relationship Specialty Start Date End Date Alisa Kunz DO [address] [address] PCP - General Internal Medicine 03/13/21 Kodi Bustos DO [address] [address] Surgeon Cardiothoracic Surgery 11/06/22 Sujit Arriola MD [address] [place] [address] Consulting Physician Pulmonary Disease 11/06/22 Sujit Reyes MD [address] [place] [address] Referring Physician 12/04/22 Patricia Yañez LPN [facility] TCM Nurse 08/25/24 10/17/24 Zee Lazar DO [address] [place] [address] Resident 09/08/24 documented as of this encounter
--- OUTSIDE RECORDS SUMMARY | 2024-09-22 11:30 | XMS_ITS | Encounter Summary ---
[facility] Address [address] [place] [address] Care Team Providers Care Medart Operator Name Role Phone Alisa Kunz Primary Care Provider +1- [phone] Encounter Details Date Type Department Care Team (Latest Contact Info) Description 09/22/2024 11:30 AM EDT Anticoagulation Visit [facility] [address]20 [facility] [address] [place] [phone] Left ventricular apical thrombus (Primary Dx) Social [...] Beal, PharmD - 09/22/2024 11:30 AM EDT [facility] Anticoagulation Clinic Progress Note Patient Demographics Method of INR reporting: [employer] Home Monitor SN [id number] Estimated OOP Cost: Indication: Left Ventricular Atypical Thrombus (~2012) Referring Provider Nanette Pryor APRN Reason patient is not on a DOAC: Goal INR: 2-3 Warfarin Start Date ~02/12/24 Reason patient is not on home monitor: [id number]: Planned Duration of Therapy Indefinite Relevant medical [...] - HM 1.4 - Clinic 1.32 - PROCESSING ASSISTANT 2.8 2.0 Notes Admitted [facility] Rec'd 05/27 [...] Verbal release: Signed 03/05/24 Preferred contact number: [phone] Alternative contact number(s): [phone] (Doron) [phone] (Ruthie) [phone] (Madyson) Patient Appropriate for WarfNoCall ? No Preferred contact name: Michelle Felipe Alternative contact name(s): Doron eFlipe () Ruthie Chong (Daughter) Madyson Hernandes (Daughter) [...] at this time. Order sent to [facility] Reema Beal PharmD 09/22/2024 12:04 EDT documented in this encounter Plan of Treatment Upcoming Encounters Date Type Department Care Team (Late st Contact Info) Description 12/02/2024 3:30 PM EDT Office Visit [facility] CARDIOLOGY [address] [place] [address] [place] [address] Sujit Reyes MD 1720 [facility] [id number] 01/19/2025 1:45 PM EST Office Visit [facility] CARDIOLOGY [address] [address] Naveen Velasquez MD 1720 [facility] E [address] [place] [address] documented as of this encounter Procedures Procedure Name Priority Date/Time Associated Diagnosis Comments POCT PROTIME - INR Routine 09/22/2024 11 :47 AM EDT documented in this encounter Results * (ABNORMAL) POC Protime / INR (09/22/2024 11:47 AM EDT) Protime 24.2(H) 10.0 - 13.8 seconds 09/22/2024 11:49 AM EDT [facility] INR 2.0(H) 0.91 - 1.09 09/22/2024 11:49 AM EDT [facility] Blood 09/22/2024 11:4 7 AM EDT 09/22/2024 11:49 AM EDT LUIS Dimas POINT OF CARE TEST ORDERAB LES Final Result [facility]
[address] [place] [address], documented in this encounter Visit Diagnoses Diagnosis Left ventricular apical thrombus- Primary documented in this encounter Care Teams Medart Operator Relationship Specialty Start Date End Date Alisa Kunz DO [address] [place] [address] PCP - General Internal Medicine 04/26/21 documented as of this encounter
--- OUTSIDE RECORDS SUMMARY | 2024-09-27 13:20 | XMS_ITS | Encounter Summary ---
Author Organization [facility] Address [address] [place] [address] Care Team Providers Care Medical Physicist Name Role Phone Alisa Kunz Torri DO Primary Care Provider [phone] Kodi Bustos DO Unavailable [phone] Sujit Arriola MD Unavailable [phone] Sujit Reyes MD Unavailable [phone] Patricia Yañez LPN Unavailable Unavailab Zee Lr DO Unavailable [phone] Reason for Visit * Reason Comments Follow-up Encounter Details Date Type Department Care Team (Late st Contact Info) Description 09/27/2024 1:20 PM EDT Office Visit [facility] Discharge Clinic [address] [place] [address] Ashley, June R, RECONDITIONER [address] [phone] Pleural effusion (Primary Dx); Longstanding persistent atrial [...] Recorded Patient Health Questionnaire-2 Score 0 09/08/2024 [facility] - Occupational [...] any time in the past 12 m [facility], were you homeless or living in a detention (including now)? No 05/27/2024 Humiliation, Afraid, Rape, [...] any time in the past 12 m [facility], were you homeless or living in a detention (including now)? No 09/17/2024 CAGE ASSESSMENT Answer [...] drink first t anselmo in the morning (EYE-HOME CARE ASSISTANT) to steady your nerves or to [...] We have made you an appointment with [facility] (Anticoagulation Clinic) as we discussed. Your appointment is on 09/28/24 at 1:00PM - Clinic staff recommended to also review your myChart if you need additional appointment details. [facility] Anticoagulation Clinic [address], [address] [place] [address] Phone number: [phone] Go immediately to the ER with any chest pain/palpitations/shortness of breath, seizure like activity, or stroke like symptoms (for example but not limited to: slurred speech, dizziness, one sided weakness, altered gait, facial droop, sudden terrible headache or worst headache of life) * Progress Notes - Dinah Ramirez APRN - 09/27/2024 1:20 PM EDT Transitional Care Management Progress Note: Phil-vx-Wftm Visit Patient: Michelle Felipe : 1950 PCP: [...] levels >2 -Will set up appointment with [facility] next [facility] -Continue home metoprolol [...] in the future. Patient is established with [facility] with next appt 10/18/24. Review of Systems: [...] Health care maintenance -Patient is established with [facility] with next appt 10/18/24. Follow up appointments: [facility] 09/30/24, ENT 10/07/24, ENG 10/07/24, Cardiology 10/07/24, Pulm 10/14/24, [facility] 10/18/24, Nephrology 10/25/24, Endocrinology 10/27/24, [facility] 12/22/24, Cardiology 01/19/25, [facility] 02/02/25, [facility] 03/28/25 Note to patient: The Cures [...] clinical opinion of the practitioner. Dinah Ramirez, RECONDITIONER 09/27/2024 1:27 PM [1] Past Medical History: [...] - Was ableto get patient in with [facility] ophthalmology right after our clinic appointment [...] CARDIAC PACEMAKER PLACEMENT N/A Pacemaker Placement from [employer] CARPAL TUNNEL RELEASE N/A Neuroplasty Decompression Median Nerve At Carpal Tunnel from [employer] CERVICAL BIOPSY W/ LOOP ELECTRODE EXCISION 2010 SECTION, CLASSIC 1976, 1979 SECTION, LOW TRANSVERSE N/A Section from [employer] COLONOSCOPY N/A Complete Colonoscopy from [employer] CORONARY ARTERY BYPASS GRAFT N/A CABG from [employer] EYE SURGERY N/A Eye Surgery from [employer] FRACTURE SURGERY SPINE SURGERY THORACENTESIS TOE SURGERY Left 02/07/2024 hematoma removal of upper skin on L big toe TONSILLECTOMY N/A Tonsillectomy from [employer] [3] Family History Problem Relation Name Age of Onset Conversions - Other Mother cindi stamper alfredito kelin Goiter (Diffuse Nontoxic) Heart disease Mother cindi stamper alfredito kelin Hypertension Mother cindi stamper alfredito kelin Stroke Mother cindi stamper alfredito kelin COPD Mother cindi stamper alfredito kelin Alpha-1 antitrypsin deficiency Mother cindi stamper alfredito kelin Arthritis Father Doron E Dale Hypercholesterolemia Father Doron E Dale Obesity Father Doron E Alfredito COPD Father Doron E Alfredito Alcohol abuse Father Doron E Alfredito Diabetes Sibling Cancer Other Doron E Dale Conversions - Other Other Goiter (Diffuse Nontoxic) Heart disease Other Cindi Marry Stamper Dale Kelin documented in this encounter Plan of Treatment Upcoming Encounters Date Type Department Care Team (Late st Contact Info) Description 10/27/2024 1:40 PM EDT Office Visit [facility] Endocrinology [address] [place] [address] Anne-Marie Kolb L, RECONDITIONER [address] [place] [address] 12/06/2024 11:20 AM EDT Office Visit [facility] Internal Medicine [address], [address]rd [place] [address] Alisa Kunz L, DO [address] [place] [address] 12/23/2024 4:00 PM EDT [facility] Medicine Specialties [address], [address] [place] [address] Lavern Shoemaker MD [address] [place] [address] 02/02/2025 8:40 AM EST Office Visit [facility] Internal Medicine [address], [address] [place] [address] Alisa Kunz, [address] [place] [address] documented as of this encounter Results * (ABNORMAL) Protime-INR (09/27/2024 2:29 PM EDT) Prothrombin Time 19.5(H) 12.0 - 14.3 sec LAB COAGULATION METHOD 09/27/2024 5:42 PM EDT [facility] INR 1.6(H) 0.9 - 1.1 LAB COAGULATION METHOD 09/27/2024 5:42 PM EDT [facility] Blood Venous blood specimen / Unknown Venipuncture / Unknown 09/27/2024 2:29 PM EDT 09/27/2024 2:29 PM EDT Narrative [facility] - 09/27/2024 5:42 PM EDT OPTIMAL INR RANGES FOR PATIENT ON ORAL ANTICOAGULANT THERAPY Prevention of venous thromboembolism INR 2.0 to 3.0 In patients with heart disease: Atrial fibrillation INR 2.0 to 3.0 Valvular heart disease INR 2.0 to 3.0 Tissue heart valves INR 2.0 to 3.0 Mechanical prosthetic valves INR 2.5 to 3.5 Prevention of recurrent IN INR 2.5 to 3.5 us Dinah Ramirez RECONDITIONER LAB BLOOD ORDERABLES Final Result [facility] [address] [place] [address] documented in this encounter Visit Diagnoses Diagnosis [...] documented as of this encounter Care Teams Medical Physicist Relationship Specialty Start Date End Date Alisa Kunz DO [address] [place] [phone] PCP - General Internal Medicine 03/13/21 Kodi Bustos DO [address] [phone] Surgeon Cardiothoracic Surgery 11/06/22 Sujit Arriola MD [address] [place] [phone] Consulting Physician Pulmonary Disease 11/06/22 Sujit Reyes MD [address] [place] [phone] Referring Physician 12/04/22 Patricia Yañez LPN [facility] TCM Nurse 08/25/24 10/17/24 Zee Lazar DO [address] [place], [place] [phone] Resident 09/08/24 documented as of this encounter
--- OUTSIDE RECORDS SUMMARY | 2024-10-07 12:50 | XMS_ITS | Encounter Summary ---
Author Organization Healthcare Address [address] [place] [address] Care Team Providers Care Geriatric Care Manager Name Role Phone ZeAlisa willett Torri DO Primary Care Provider [phone] Kodi Bustos DO Unavailable [phone] Sujit Arriola MD Unavailable [phone] Sujit Reyes MD Unavailable [phone] Patricia Yañez LPN Unavailable Unavailab Zee Lr DO Unavailable [phone] Reason for Visit * Reason Comments Throat Problem Mouth feels like it is on fire * Consultation (Routine) - Closed Specialty Diagnoses / Procedures Referred By Contdarwin t Referred To Contact Otolaryngology Diagnoses Oral herpes simplex infection Alex Mg MD [address] [place] [address] Phone: tel: fax: [facility] [address] [place] [address] Phone: tel: fax: Referral ID Status Reason Start Date Expiration Date V isits Requested Visits Authorized [id number] Closed Specialty Services Required 09/15/2024 03/17/2026 1 1 Encounter Details Date Type Department Care Team (Late st Contact Info) Description 10/07/2024 12:50 PM EDT Office Visit [place] [facility] [address] [place] [address] Chris Pepe MD [address] [place] [address] Recurrent aphthous ulcer (Primary Dx); [...] Recorded Patient Health Questionnaire-2 Score 0 09/08/2024 [facility] - Occupational Stress Questionnaire Answer [...] drink first t anselmo in the morning (EYE-SOFTWARE PROGRAM MANAGER) to steady your nerves or to [...] crush, chew, or split., Disp: , Rfl: Rzkaxazttjg-Hzogalnwk-Fflcwf (Trelegy Ellipta) 200-62.5-25 MCG/ACT aerosol powder , [...] 10/27/2024 1:40 PM EDT [facility] [address] [place] [address] Anne-Marie Kolb L, FILM PAINTER [address] [place] [address] 12/06/2024 11:20 AM EDT Office Visit [facility] Internal Medicine [address], [address] [place] [address] Alisa Kunz, DO [address] [place] [address] 12/23/2024 4:00 PM EDT Office Visit [facility] Medicine Specialties [address] [place] [address] Lavern Shoemaker MD [address] [place] [address] 02/02/2025 8:40 AM EST Office Visit [facility] Internal Medicine [address], [address] [place] [address] Alisa Kunz, DO [address] [place] [address] documented as of this encounter Visit Diagnoses [...] documented as of this encounter Care Teams Geriatric Care Manager Relationship Specialty Start Date End Date Alisa Kunz DO [address] [place] [address] PCP - General Internal Medicine 03/13/21 Kodi Bustos DO [address] [address] Surgeon Cardiothoracic Surgery 11/06/22 Sujit Arriola MD [address] [place] [address] Consulting Physician Pulmonary Disease 11/06/22 Sujit Reyes MD [address] [place] [address] Referring Physician 12/04/22 Patricia Yañez LPN [facility] TCM Nurse 08/25/24 10/17/24 Zee Lazar DO [address] [place], [place] [id number] Resident 09/08/24 documented as of this encounter
--- OUTSIDE RECORDS SUMMARY | 2024-10-12 09:52 | XMS_ITS | Encounter Summary ---
[facility] Address [address] [place] [address] Care Team Providers Care Drug Abuse Social Worker Name Role Phone Alisa Kunz Primary Care Provider +1- [phone] Reason for Referral * Cardiac (Routine) - Closed Specialty Diagnoses / Procedures Referred By Luis Armando t Referred To Contact Diagnoses Paroxysmal atrial fibrillation Procedures Cardioversion External in Cardiology Department Naveen Velasquez MD [address] [place], [place] [address] [place] [address] Phone: tel: fax: Referral ID Status Reason Start Date Expiration Date Visits Re quested Visits Authorized [id number] Closed 10/12/2024 01/04/2026 1 1 Reason for Visit * Cardiac (Routine) - Closed Specialty Diagnoses / Procedures Referred By Luis Armando mckeon Referred To Contact Diagnoses Paroxysmal atrial fibrillation Procedures Cardioversion External in Cardiology Department [facility] [address] [place] [address] Phone: tel: fax: Referral ID Status Reason Start Date Expiration Date Visits Re quested Visits Authorized [id number] Closed 10/12/2024 01/04/2026 1 1 Encounter Details Date Type Department Care Team (Late st Contact Info) Description 10/12/2024 9:52 AM EDT - 10/12/2024 4:46 PM EDT Hospital Encounter [facility] [address] [place] [address] Naveen Velasquez MD [address] [facility] [address] [address] [place] [address] Paroxysmal atrial fibrillation Discharge Disposition: Home or [...] 10:26 AM EDT Cece Prieto RN * [place] Suicide Severity Rating Scale (Screener/Recent Self-Report) Question [...] sent through Care Everywhere. * Transesophageal Echocardiogram (Libyan) * Moderate Conscious Sedation Adult Care After (Libyan) * Warfarin Tablets (Libyan) * Atrial Fibrillation Bxmr-mc-Ekvq (Libyan) documented in this encounter Medications at Time [...] on file. 10/12/24 DATE OF ADMISSION: 10/12/2024 [facility] Alisa Tanner, DO [address] / [facility] [address] Referring Provider: Naveen Velasquez MD CC: AFIB Problem List: Ischemic heart disease: CABG, Dr. Timur Lopez, July 1999 (SHEEHAN to distal LAD,SVG to first diagonal, SVG to second diagonal, SHAR [place] metal stenting of the ostium of the SVG to second diagonal, Rotational atherectomy/PTCA ofRCA and SVG to second diagonal in-stent. PTCRA/stenting of proximal RCA in-stent restenosis and rotational atherectomy/PTCA of SVG to seconddiagonal. Brachy therapy for in-stent restenosis of proximal dominant RCA, 04/16/2001, LVEF (65%). [facility]: Dr. Thakkar for acute [place], 01/10/2007: Normal LV function and wall motion, Patent SVG to second diagonal, Patent SHEEHAN graft to LAD, 50% ostial stenosis of SVG to first diagonal, JANA Taxus stenting of mid RCA stenosis. Mild reversible anteroischemia - Cardiac SPECT (scan date ?), LVEF (77%). [facility], May 2011, [facility], reportedly revealed no disease (data deficit) in setting of diabetic ketoacidosis associated with acute respiratory failure requiring mechanical ventilation x 5 days. Echocardiogram 04/12/16: LVEF 70%, mild MR, AV sclerosis Myocardial perfusion study 02/17/2017: Wnl, EF 70% Echo, 05/18/21, EF 60%, Mild MS [facility] PTCA RCA ISR: Patent Grafts. 04/30 [...] block SJ PPM - GFT CVA 04/27 [facility], outpt monitor demonstrated Afib 40% [...] be feeling worse. Will attempt cardioversion and voodoo of normal sinus rhythm to see if [...] Description 12/02/2024 3:30 PM EDT Office Visit [facility] CARDIOLOGY [address] [place] [address] [place] [address] Sujit Reyes MD [address] [place] [address] 01/19/2025 1:45 PM EST Office Visit [facility] C[facility] [address] [place] [address] Naveen Velasquez MD [address] [place], [place] [id number] documented as of this encounter Procedures Procedure [...] without evidence of oropharyngeal or esophageal trauma. us Ekaterina SMITH CV ECHO ORDERABLES Final Resul t * Cardioversion External in Cardiology Department (10/12/2024 3:27 PM EDT) Anatomical Region Laterality Modality Other Narrative 10/12/2024 3:41 PM EDT Not performed secondary to left atrial appendage thrombus Cardioversion Procedure Moderate sedation was utilized. Cardioversion Shock 1 0 joules delivered to patient. us Naveen Velasquez MD CV CARDIAC SERVICES ORDERABL ES Final Result * (ABNORMAL) Protime-INR (10/12/2024 10:20 AM EDT) Protime 17.8(H) 12.2 - 15.3 Seconds 10/12/2024 11:00 AM EDT [facility] INR 1.37(H) 0.89 - 1.12 10/12/2024 11:00 AM EDT [facility] Blood Line / Unknown 10/12/2024 10 :20 AM EDT 10/12/2024 10:40 AM EDT us Naveen Velasquez MD LAB BLOOD ORDERABLES Final R esult [facility]
[address] [place] [address], * (ABNORMAL) CBC (No Diff) (10/12/2024 10:20 AM EDT) WBC 7.80 3.40 - 10.80 10*3/mm3 10/12/2024 10:48 AM EDT [facility] RBC 3.75(L) 3.77 - 5.28 10*6/mm3 10/12/2024 10:48 AM EDT [facility] Hemoglobin 11.2(L) 12.0 - 15.9 g/dL 10/12/2024 10:48 AM EDT [facility] Hematocrit 36.8 34.0 - 46.6 % 10/12/2024 10:48 AM EDT [facility] MCV 98.1(H) 79.0 - 97.0 fL 10/12/2024 10:48 AM EDT [facility] MCH 29.9 26.6 - 33.0 pg 10/12/2024 10:48 AM EDT [facility] MCHC 30.4(L) 31.5 - 35.7 g/dL 10/12/2024 10:48 AM EDT [facility] RDW 16.7(H) 12.3 - 15.4 % 10/12/2024 10:48 AM EDT [facility] RDW-SD 60.3(H) 37.0 - 54.0 fl 10/12/2024 10:48 AM EDT [facility] MPV 9.7 6.0 - 12.0 fL 10/12/2024 10:48 AM EDT [facility] Platelets 289 140 - 450 10*3/mm3 10/12/2024 10:48 AM EDT [facility] Blood Line / Unknown 10/12/2024 10 :20 AM EDT 10/12/2024 10:40 AM EDT us Naveen Velasquez MD LAB BLOOD ORDERABLES Final R esult [facility]
[address] [place] [address], documented in this encounter Visit Diagnoses Diagnosis [...] (Given - Provid er: Cece Prieto RN) flumazenil (ROMAZICON) injection 0.5 mg 0.5 mg, [...] (Due) documented in this encounter Care Teams Drug Abuse Social Worker Relationship Specialty Start Date End Date Alisa Kunz DO [address] [place] [address] PCP - General Internal Medicine 04/26/21 documented as of this encounter
--- OUTSIDE RECORDS SUMMARY | 2024-10-14 11:00 | XMS_ITS | Encounter Summary ---
Author Organization [facility] Address [address] [place] [address] Care Team Providers Care Cryptographic Vulnerability Analyst Name Role Phone ZeAlisa willett Torri DO Primary Care Provider [phone] Kodi Bustos DO Unavailable [phone] Sujit Arriola MD Unavailable [phone] Sujit Reyes MD Unavailable [phone] Patricia Yañez LPN Unavailable Unavailab Zee Lr DO Unavailable [phone] Reason for Referral * Consultation (Routine) - Authorized Specialty Diagnoses / Procedures Referred By Contdarwin t Referred To Contact Diagnoses Recurrent pleural effusion on left Chronic hypoxic respiratory failure Obstructive lung disease ([facility]/HCC) Systemic lupus erythematosus (SLE) in adult ([facility]) Cristian Zimmer MD [address] [facility] [address] [place] [address] Phone: tel: fax: Referral ID Status Reason Start Date Expiration Date V isits Requested Visits Authorized [id number] Authorized 10/14/2024 04/15/2026 1 1 Reason for Visit * Reason Comments Follow-up * Consultation (Routine) - Closed Specialty Diagnoses / Procedures Referred By Contac t Referred To Contact Diagnoses Recurrent pleural effusion on left Chronic hypoxic respiratory failure Sen, Parijat, MD [address] [place] [address] Phone: tel: fax: Referral ID Status Reason Start Date Expiration Date Visits Re quested Visits Authorized [id number] Closed 07/08/2024 01/07/2026 1 1 Encounter Details Date Type Department Care Team (Latest Contact Info) Description 10/14/2024 11:00 AM EDT [facility] [address] [place] [address] Cristian Zimmer MD [address] [place] [address] Recurrent pleural effusion on left (Primary Dx); Chronic hypoxic respiratory failure; Obstructive lung disease ([facility]); Systemic lupus erythematosus (SLE) in adult ([facility]) Social History Tobacco Use Types Packs/Day [...] often do you attend chur ch or worship services? 1 to 4 times per year [...] Recorded Patient Health Questionnaire-2 Score 0 09/08/2024 [facility] [place] of Occupat ional Health - Occupational Stress [...] living in a retirement (including now)? No 09/17/2024 CAGE ASSESSMENT Answer [...] drink first t anselmo in the morning (EYE-LANDSCAPE CREW MEMBER) to steady your nerves or to get [...] her whether she had followed up with [facility] regarding the pleural peritoneal shunt. Shetold me [...] Shoemaker had set up this appointment at [facility] and would probablyhave to do it again [...] 01/09/2023 ??? Influenza, seasonal, injectable 12/08/2018 ??? [employer] COVID-19 Vaccine (Purple Cap) 12+ 03/30/2020, 03/30/2020, [...] procedures, referring and communicating with consulting health respiratory care practitioner and care coordination. [1] Past Medical History: Diagnosis Date ??? 2019-nCoV acute respiratory disease 05/07/2022 ??? Alcohol use ??? Allergic 1973 ??? Anemia ??? Anxiety ??? Arthritis ??? Asthma ??? Cellulitis 02/13/2024 ??? Cellulitis of right leg 02/12/2024 ??? CHF (congestive heart failure) ([facility]/HCC) ??? Chronic respiratory failure 2019 ??? Clotting disorder (CMS/HCC) ??? Congenital malformation ??? COPD (chronic obstructive pulmonary disease) ([facility]/HCC) 2018 ??? Coronary artery disease ??? CTS [...] or viral conjunctivitis vs. Scleritis. - Needs [facility] eye exam. - Was ableto get patient in with [facility] ophthalmology right after our clinic [...] CARDIAC PACEMAKER PLACEMENT N/A Pacemaker Placement from [employer] ??? CARPAL TUNNEL RELEASE N/A Neuroplasty Decompression Median Nerve At Carpal Tunnel from [employer] ??? CERVICAL BIOPSY W/ LOOP ELECTRODE EXCISION 2010 ??? SECTION, CLASSIC 1976, 1979 ??? SECTION, LOW TRANSVERSE N/A Section from [employer] ??? COLONOSCOPY N/A Complete Colonoscopy from [employer] ??? CORONARY ARTERY BYPASS GRAFT N/A CABG from [employer] ??? EYE SURGERY N/A Eye Surgery from [employer] ??? FRACTURE SURGERY ??? SPINE SURGERY ??? THORACENTESIS ??? TOE SURGERY Left 02/07/2024 hematoma removal of upper skin on L big toe ??? TONSILLECTOMY N/A Tonsillectomy from [employer] [3] Family History Problem Relation Name Age [...] Do not crush, chew, or split. ??? Xqwzepijysv-Qtmtzrjpn-Zlncsb (Trelegy Ellipta) 200-62.5-25 MCG/ACT aerosol powder Inhale [...] Description 10/27/2024 1:40 PM EDT Office Visit [facility] Endocrinology [address] [place] [address] Anne-Marie Kolb, CERTIFIED NURSE [address] [facility] [address] [place] [address] 12/06/2024 11:20 AM EDT Office Visit [facility] Internal Medicine [address]rd [place] [address] Alisa Kunz, DO [address] [place] [address] 12/23/2024 4:00 PM EDT [facility] [address] [place] [address] Lavern Shoemaker MD [address] [place] [address] 02/02/2025 8:40 AM EST Office Visit [facility] Internal Medicine [address], [address]rd [place] [address] Alisa Kunz, DO [address] [facility] [address] [place] [address] Scheduled Referrals Name Type Priority Associated Diagnoses [...] Chronic hypoxic respiratory failure Obstructive lung disease ([facility]) Chronic airway obstruction, not elsewhere classified Systemic lupus erythematosus (SLE) in adult ([facility]) Recurrent pleural effusion on left documented in this encounter Additional Health Concerns Assessment Noted Time PHQ-9 Depression Total Score: 0 09/09/19 25 11:19 AM EDT A fall risk assessment has been complete d for the patient 10/14/2024 11:14 AM EDT A Body Mass Index follow-up plan has been documented for the patient 10/14/2024 2:36 PM EDT documented as of this encounter Care Teams Cryptographic Vulnerability Analyst Relationship Specialty Start Date End Date Alisa Kunz DO [address] [place] [phone] PCP - General Internal Medicine 03/13/21 Kodi Bustos DO [address] [address] Surgeon Cardiothoracic Surgery 11/06/22 Sujit Arriola MD [address] [facility] [address] [place] [address] Consulting Physician Pulmonary Disease 11/06/22 Sujit Reyes MD [address] [facility] [address] [place] [address] Referring Physician 12/04/22 Patricia Yañez LPN [facility] TCM Nurse 08/25/24 10/17/24 Zee Lazar DO [address] [place], [place] [phone] Resident 09/08/24 documented as of this encounter
--- OUTSIDE RECORDS SUMMARY | 2024-10-14 12:09 | XMS_ITS | Encounter Summary ---
Author Organization [facility] Address [address] [place] [address] Care Team Providers Care Oil Rigger Name Role Phone Alisa Kunz DO Primary Care Provider [phone] Kodi Bustos DO Unavailable [phone] Sujit Arriola MD Unavailable [phone] Sujit Reyes MD Unavailable [phone] Patricia Yañez LPN Unavailable Unavailab Zee Lr DO Unavailable [phone] Encounter Details Date Type Department Care Team (Latest Contact Info) Description 10/14/2024 12:09 PM EDT - 10/14/2024 11:59 PM EDT Hospital Encounter [place] [facility] [address], 1[address] [place] [address] Recurrent pleural effusion on left Discharge Disposition: [...] any clubs o r organizations such as mormonism groups, unions, fraternal or athletic groups, or [...] Recorded Patient Health Questionnaire-2 Score 0 09/08/2024 [facility] - Occupational [...] drink first t anselmo in the morning (EYE-HYDROPULPER) to steady your nerves or to get rid of a hangover? 0 08/14/2024 CAGE Questionnaire Score 0 025 Utilities Answer Date Recorded In the past 12 months has th e [employer], gas, oil, or water company threatened to [...] as of this encounter Functional Status * AUDIT-C Score Answer Date of Assessment Author 4 10/14/2024 11:04 AM EDT Rozina Vázquez * Question Answer Date of Assessment Author Q1: How often do you have a drink containing alcohol? 4 or more times a week 10/14/2024 11:04 AM Rozina Hidalgo Q2: How many drinks containing alcohol do you have on a typical day when you are drinking? 1 or 2 10/14/2024 11:04 AM Rozina Clarke Q3: How often do you have six or more drinks on one occasion? Never 10/14/2024 11:04 AM Rozina Clarke documented as of this encounter Medications at Time of Discharge acetaminophen (Tylenol) 500 MG tablet Take 2 tablets by mouth every 6 hours as needed. aspirin 81 MG EC tablet Take 1 tablet by mouth every evening. Blood Glucose Monitoring Suppl (Blood Glucose Monitor System) w/Device kit Test blood sugars twice a day to calibrate cgm. Dx E10.65 1 kit 09/16/2024 cetirizine (ZyrTEC) 10 MG tablet Take 1 [...] Take 1 tablet by mouth nightly. 05/29/2020 ferrous sulfate 324 (65 Fe) MG EC tablet Take 1 tablet by mouth daily with breakfast. Do not crush, chew, or split. Fluticasone-Umeclid in-Vilant (Trelegy Ellipta) 200-62.5-25 MCG/ACT aerosol powder Inhale 1 puff 1 (one) time each day in the morning. 180 each 3 10/03/2023 folic acid (Folvite) 1 MG tablet Taking 1 tablet five days of the week 90 tablet 1 07/16/2024 gabapentin (Neurontin) 300 MG capsule TAKE 1 CAPSULE BY MOUTH 2 TIMES A DAY 60 capsule 2 10/06/2024 glucose blood test strip Use to test blood sugars twice a day to calibrate cgm. Dx 10.65 100 each 12 09/16/2024 hydroxychloroquine (Plaquenil) 200 MG tabletIndications:S ystemic lupus erythematosus (SLE) in adult ([facility]) Take 1.5 tablets by mouth daily. 45 tablet 5 09/15/2024 6 insulin glargine (Toujeo SoloStar) 300 UNIT/ML injection pen (1 UNIT DIAL)Indications:Ty pe 1 diabetes mellitus with hyperglycemia ([facility]) Inject 14 Units under the skin every morning. 4.5 mL 3 08/04/2024 6 insulin lispro (HumaLOG KWIKPEN) 100 UNIT/ML injection penIndications:Type 1 diabetes mellitus with hyperglycemia (CMS/HCC) Inject 2-6 units before meals plus 1:60>150. Max tdd 30 units 30 mL 2 08/04/2024 Lancets misc Use twice a day to calibrate cgm Dx E10.65 100 each 3 09/16/2024 latanoprost (Xalatan) 0.005 % ophthalmic solution Administer 1 drop into both eyes nightly. levothyroxine (Synthroid, Levoxyl) 125 MCG tablet Take 1 tablet (125 mcg) by mouth 1 (one) time each day before breakfast. 90 tablet 3 12/31/2023 metoprolol succinate XL (Toprol-XL) 25 MG 24 hr tablet Take 1 tablet by mouth every morning. 04/13/2020 mycophenolate (CellCept) 500 MG tabletIndications:S ystemic lupus erythematosus (SLE) in adult (CMS/HCC) Take 2 tablets by mouth 2 times a day. 360 tablet 1 08/27/2024 oxygen (O2) gas Inhale 2 L nightly. via nasal canula Pitavastatin Calcium (Livalo) 4 MG tabletIndications:T ype 1 diabetes mellitus with other specified complication (CMS/HCC),Dyslipide romana Take 1 tablet by mouth daily. 90 tablet 09/06/2024 Probiotic Product (acidophilus probiotic blend) capsule Take 1 capsule by mouth daily. spironolactone (Aldactone) 25 MG tablet Take 0.5 tablets by mouth daily. 09/16/2024 sucralfate (Carafate) 1 GM/10ML suspension Take 10 mL by mouth 4 times a day. 473 mL 11 10/07/2024 warfarin (Coumadin) 5 MG tablet Take 2.5 mg on Friday and 5mg the rest of the week and follow up with your warfarin pharmacist. 30 tablet 07/15/2024 furosemide (Lasix) 80 MG tablet Take 1 tablet by mouth daily. 30 tablet 09/16/2024 documented as of this encounter Plan of Treatment Upcoming Encounters Date Type Department Care Team (Late st Contact Info) Description 10/27/2024 1:40 PM EDT Office Visit [facility] Endocrinology [address] [place], [place] [address] [address] Cortes Anne-Marie L, NURSE RN BSN [address] [place] [address] 12/06/2024 11:20 AM EDT Office Visit [facility] Internal Medicine [address], 3rd [place] [address] Alisa Kunz, DO [address] [place] [address] 12/23/2024 4:00 PM EDT Office Visit [facility] Medicine Specialties [address], [address] [place] [address] Lavern Shoemaker MD [address] [place] [address] 02/02/2025 8:40 AM EST Office Visit [facility] Internal Medicine [address], 3rd [place] [address] Alisa Kunz L, DO [address] [facility] [address] [place] [address] documented as of this encounter Procedures Procedure Name Priority Date/Time Associated Diagnosis Comments XR CHEST 2 VIEWS Routine 10/14/2024 12:1 9 PM EDT Recurrent pleural effusion on left [...] documented as of this encounter Care Teams Oil Rigger Relationship Specialty Start Date End Date Alisa Kunz DO [address] [place] [address] PCP - General Internal Medicine 03/13/21 Kodi Bustos DO [address] [phone] Surgeon Cardiothoracic Surgery 11/06/22 Sujit Arriola MD [address] [place] [phone] Consulting Physician Pulmonary Disease 11/06/22 Sujit Reyes MD [id number] [place] [address] Referring Physician 12/04/22 Patricia Yañez LPN [facility] TCM Nurse 08/25/24 10/17/24 Zee Lazar DO [address] [place] [address] Resident 09/08/24 documented as of this encounter
--- OUTSIDE RECORDS SUMMARY | 2024-10-21 14:15 | XMS_ITS | Encounter Summary ---
Author Organization [facility] ystem Address [address] [place] [address] Care Team Providers Care Store Receiving Clerk Name Role Phone Alisa Kunz DO Primary Care Provider +1- [phone] Reason for Referral * Hospital - Outpatient (Routine) - Pending Review Specialty Diagnoses / Procedures Referred By Luis Armando mckeon Referred To Contact Sleep Medicine Diagnoses EWELINA (obstructive sleep apnea) Nocturnal hypoxemia Weight loss On supplemental oxygen therapy Procedures Polysomnography 4 or More Parameters Shannen Horta APRN [address] [place] [id number] Phone: tel: fax: [facility] SLEEP LAB [address] [address] Phone: tel: fax: Referral ID Status Reason Start Date Expiration Date V isits Requested Visits Authorized [id number] Pending Review 10/21/2024 01/20/2026 1 1 Reason for Visit * Reason Comments Follow-up Sleep Apnea Encounter Details Date Type Department Care Team (Late st Contact Info) Description 10/21/2024 2:15 PM EDT Office Visit [facility] SLEEP MEDICINE [address] [place] [address] Shannen Horta, LUMBER STACKER [address] [place], [place] [id number] EWELINA (obstructive sleep apnea) (Primary Dx); Nocturnal [...] this encounter Progress Notes * Shannen Horta, LUMBER STACKER - 10/21/2024 2:15 PM EDT Chief Complaint: Chief Complaint Patient presents with Follow-up Sleep Apnea HPI: Michelle Felipe is a 74 y.o. female here for follow-up of sleep apnea. Patient was last seen 05/15/2023. Patient does use bzaiet-uhi-cqafk oxygen at 2 L. She has a [...] social history were reviewed and updated in [facility] as appropriate. Review of Systems Constitutional: Positive [...] Horta APRN October 21, 2024 CC: Alisa Kunz DO No ref. provider found documented in this encounter Plan of Treatment Upcoming Encounters Date Type Department Care Team (Late st Contact Info) Description 12/02/2024 3:30 PM EDT Office Visit [facility] CARDIOLOGY [address] [facility] [place] [address] Sujit Reyes MD [facility] [facility] [address] [place], [place] [address] 01/19/2025 1:45 PM EST Office Visit [facility] CARDIOLOGY 1720 [facility] [address] [place] [address] Naveen Velasquez MD 1720 [facility] E [address] [place], [place] [id number] Scheduled Orders Name Type Priority Associated Diagnoses [...] oxygen documented in this encounter Care Teams Store Receiving Clerk Relationship Specialty Start Date End Date Alisa Kunz DO [address] [place] [id number] PCP - General Internal Medicine 04/26/21 documented as of this encounter
--- OUTSIDE RECORDS SUMMARY | 2024-10-26 13:09 | XMS_ITS | Encounter Summary ---
Author Organization Healthcare Address [address] [place] [place] [address] Care Team Providers Care Gas Brazer Name Role Phone Alisa Kunz DO Primary Care Provider [phone] Kodi Bustos DO Unavailable [phone] Sujit Arriola MD Unavailable [phone] Sujit Reyes MD Unavailable [phone] Patricia Yañez LPN Unavailable Unavailab Zee Lr DO Unavailable [phone] Encounter Details Date Type Department Care Team [...] Recorded Patient Health Questionnaire-2 Score 0 09/08/2024 [facility] of Occupat ional [facility] - Occupational Stress Questionnaire Answer [...] living in a correction (including now)? No 09/17/2024 CAGE ASSESSMENT Answer [...] drink first t anselmo in the morning (EYE-ORACLE DATABASE CONSULTANT) to steady your nerves or to [...] Description 10/27/2024 1:40 PM EDT [facility] Visit [facility] Endocrinology [address] [place] [address] Anne-Marie Kolb L, MANAGER OF MANUFACTURING [address] [facility] 125 [place] [address] 12/06/2024 11:20 AM EDT Office Visit [facility] Internal Medicine [address] 3rd [place] [address] Alisa Kunz, [address] [place] [address] 12/23/2024 4:00 PM EDT Office Visit [facility] Medicine Specialties [address], [address]nd [place] [address] Lavern Shoemaker MD [address] [place] [phone] 02/02/2025 8:40 AM EST Office Visit [facility] Internal Medicine [address] 3rd [place] [address] Alisa Kunz DO [address] [facility] [address] [place] [address] documented as of this [...] documented as of this encounter Care Teams Gas Brazer Relationship Specialty Start Date End Date Alisa Kunz DO [address] [address] PCP - General Internal Medicine 03/13/21 Kodi Bustos DO [address] [place] [phone] Surgeon Cardiothoracic Surgery 11/06/22 Sujit Arriola MD [address] [place] [address] Consulting Physician Pulmonary Disease 11/06/22 Sujit Reyes MD [address] [place] [address] Referring Physician 12/04/22 Patricia Yañez, WINDOWS SYSTEMS ENGINEER [facility] TCM Nurse 08/25/24 10/17/24 Zee Lazar DO [address] [place] [address] Resident 09/08/24 documented as of this encounter
--- OUTSIDE RECORDS SUMMARY | 2024-10-26 13:09 | XMS_ITS | Encounter Summary ---
Author Organization [facility] Address [address] [place] [address] Care Team Providers Care Salesperson Books Name Role Phone Alisa Kunz DO Primary Care Provider [phone] Kodi Bustos DO Unavailable [phone] Sujit Arriola MD Unavailable [phone] Sujti Reyes MD Unavailable [phone] Patricia Yañez LPN Unavailable Unavailab Zee Lr DO Unavailable [phone] Reason for Visit * Reason Comments TCM Call Encounter Details Date Type Department Care Team (Late st Contact Info) Description 09/17/2024 Patient Outreach [facility] [address] [facility], [address] [place] [address] Patricia Yañez LPN [facility] TCM Call Social History [...] Recorded Patient Health Questionnaire-2 Score 0 09/08/2024 [facility] of Occupat ional Health - Occupational [...] drink first t anselmo in the morning (EYE-SHUTTLECOCK FEATHER TRIMMER) to steady your nerves or to [...] Date: 09/09/2024 Discharge Date: 09/15/2024 Hospital Service: [facility] Discharge Diagnosis: Acute on chronic congestive heart [...] [facility] Patient denies N/V/D, fever, SOA, chest pain, [...] Dinah Ramirez APRN Items to address at [facility]: -B/P readings documented in this encounter Plan of Treatment Upcoming Encounters Date Type Department Care Team (Late st Contact Info) Description 10/27/2024 1:40 PM EDT Office Visit [facility] Endocrinology [address] [place] [address] Anne-Marie Kolb, FORM STRIPPER [address] [facility] 125 [place] [address] 12/06/2024 11:20 AM EDT Office Visit [facility] Internal Medicine [address] 3rd [place] [address] Ze, Alisa L, DO [address] [place] [address] 12/23/2024 4:00 PM EDT Office Visit [facility] Medicine Specialties [address], [address]nd [place] [address] Lavern Shoemaker MD [address] [place] [address] 02/02/2025 8:40 AM EST Office Visit [facility] Internal Medicine [address], 3rd [place] [address] Alisa Kunz, DO [address] [place] [address] documented as of this encounter [...] documented as of this encounter Care Teams Salesperson Books Relationship Specialty Start Date End Date Alisa Kunz DO [address] [place] [address] PCP - General Internal Medicine 03/13/21 Kodi Bustos, DO [address] [place] [address] Surgeon Cardiothoracic Surgery 11/06/22 Sujit Arriola MD [address] [place] [address] Consulting Physician Pulmonary Disease 11/06/22 Sujit Reyes MD [address] [facility] [address] [place] [address] Referring Physician 12/04/22 Patricia Yañez LPN [facility] TCM Nurse 08/25/24 10/17/24 Zee Lazar DO [address] [place], [place] [id number] Resident 09/08/24 documented as of this encounter
--- OUTSIDE RECORDS SUMMARY | 2024-10-26 13:09 | XMS_ITS | Encounter Summary ---
Author Organization [facility] Address [address] [place] [address] Care Team Providers Care Terminal Operations Manager Name Role Phone Alisa Kunz DO Primary Care Provider Kodi Bustos DO Unavailable [phone] Sujit Arriola MD Unavailable [phone] Sujit Reyes MD Unavailable [phone] Patricia Yañez LPN Unavailable Unavailab Zee Lr DO Unavailable [phone] Encounter Details Date Type Department Care Team (Late st Contact Info) Description 09/16/2024 Telephone [facility] Internal Medicine [address], 3rd [place] [address] Alisa Kunz DO [address] [place] [address] Social History Tobacco Use Types [...] often do you attend chur ch or cheondoism services? 1 to 4 times [...] drink first t anselmo in the morning (EYE-ASSEMBLER WIRE GROUP) to steady your nerves or to get rid of a hangover? 0 08/14/2024 CAGE Questionnaire Score 0 025 Utilities Answer Date Recorded In the past 12 months has th [employer], gas, oil, or water [employer] threatened to shut off services in your [...] Description 10/27/2024 1:40 PM EDT Office Visit [facility] Endocrinology [address] [place] [address] Anne-Marie Kolb, CHARGE COORDINATOR [address] [place] [phone] 12/06/2024 11:20 AM EDT Office Visit [facility] Internal Medicine [address], 3rd [place] [address] Alisa Kunz, DO [address] [place] [address] 12/23/2024 4:00 PM EDT Office Visit [facility] Medicine Specialties [address], 2nd [place] [address] Lavern Shoemaker MD [address] [place] [id number] 02/02/2025 8:40 AM EST Office Visit [facility] Internal Medicine [address], 3rd [place] [address] Alisa Kunz, DO [address] [place] [address] documented as of this encounter [...] as of this encounter Care Teams Terminal Operations Manager Relationship Specialty Start Date End Date Alisa Kunz DO [address] [place] [address] PCP - General Internal Medicine 03/13/21 Kodi Bustos DO [address] [address] Surgeon Cardiothoracic Surgery 11/06/22 Sujit Arriola MD [address] [place] [address] Consulting Physician Pulmonary Disease 11/06/22 Sujit Reyes MD [address] [place] [address] Referring Physician 12/04/22 Patricia Yañez LPN [facility] TCM Nurse 08/25/24 10/17/24 Zee Lazar DO [address] [place] [id number] Resident 09/08/24 documented as of this encounter
--- OUTSIDE RECORDS SUMMARY | 2024-10-26 13:09 | XMS_ITS | Encounter Summary ---
Author Organization [facility] Address [address] [place] [address] Care Team Providers Care Management And Budget Analyst Name Role Phone Alisa Kunz DO Primary Care Provider [phone] Kodi Bustos DO Unavailable [phone] Sujit Arriola MD Unavailable [phone] Sujit Reyes MD Unavailable [phone] Patricia Yañez LPN Unavailable Unavailab Zee Lr DO Unavailable [phone] Reason for Visit * Reason Onset Date Comments HCN - Patient Message 09/23/2024 Encounter Details Date Type Department Care Team (Late st Contact Info) Description 09/23/2024 Telephone [facility] Internal Medicine [address]rd [place] [address] Alisa Kunz DO [address] [place] [address] HCN - Patient Message Social [...] any time in the past 12 m [facility], were you homeless or living in [...] any time in the past 12 m [facility], were you homeless or living in a jail (including now)? No 09/17/2024 CAGE ASSESSMENT Answer [...] drink first t anselmo in the morning (EYE-SPA SUPERVISOR) to steady your nerves or to get rid of a hangover? 0 08/14/2024 CAGE Questionnaire Score 0 025 Utilities Answer Date Recorded In the past 12 months has th [employer], gas, oil, or water [employer] threatened to shut off services in your [...] optimal time of day to reach caller: [phone] Note: Please do not reply to this [...] Description 10/27/2024 1:40 PM EDT Office Visit [facility] Endocrinology [address] [place] [address] Anne-Marie Kolb, PROP WORKER [address] [facility] [address] [place] [address] 12/06/2024 11:20 AM EDT Office Visit [facility] Internal Medicine [address] 3rd [place] [address] Alisa Kunz, DO [address] [place] [address] 12/23/2024 4:00 PM EDT Office Visit [facility] Medicine Specialties [address]nd [place] [address] Lavern Shoemaker MD [address] [place], [place] [phone] 02/02/2025 8:40 AM EST Office Visit [facility] Internal Medicine [address], 3rd [place] [address] Alisa Kunz, DO [address] [place] [address] documented as of this encounter [...] documented as of this encounter Care Teams Management And Budget Analyst Relationship Specialty Start Date End Date Alisa Kunz DO [address] [place] [address] PCP - General Internal Medicine 03/13/21 Kodi Bustos, DO [address] [address] Surgeon Cardiothoracic Surgery 11/06/22 Sujit Arriola MD [address] [place] [address] Consulting Physician Pulmonary Disease 11/06/22 Sujit Reyes MD [address] [place] [address] Referring Physician 12/04/22 Patricia Yañez LPN [facility] TCM Nurse 08/25/24 10/17/24 Zee aLzar DO [address] [place] [address] Resident 09/08/24 documented as of this encounter
--- OUTSIDE RECORDS SUMMARY | 2024-10-26 13:09 | XMS_ITS | Encounter Summary ---
Author Organization [facility] Address [address] [place] [address] Care Team Providers Care Cargo Services Coordinator Name Role Phone Alisa Kunz Torri DO Primary Care Provider Kodi Bustos DO Unavailable [phone] Sujit Arriola MD Unavailable [phone] Sujit Reyes MD Unavailable [phone] Patricia Yañez LPN Unavailable Unavailab Zee Lr DO Unavailable [phone] Encounter Details Date Type Department Care Team (Late st Contact Info) Description 09/28/2024 Results Follow-Up [facility] [address] [place] [address] Ashley, June R, CHEMICAL ENGINEERING TEACHER [address] [place] [address] Social History Tobacco Use Types [...] Recorded Patient Health Questionnaire-2 Score 0 09/08/2024 [facility] of Occupat ional Health - [...] first t anselmo in the morning (EYE-SENIOR COURTROOM CLERK) to steady your nerves or to get rid of a hangover? 0 08/14/2024 CAGE Questionnaire Score 0 025 Utilities Answer Date Recorded In the past 12 months has th [employer], gas, oil, or water [employer] threatened to shut off services in your [...] Visit [facility] Endocrinology [address] [place] [phone] Anne-Marie Kolb APRN 2[address] [facility] 125 [place] [address] 12/06/2024 11:20 AM EDT Office Visit [facility] Internal Medicine [address], 3rd [place] [address] Alisa Kunz, DO [address] [address] 12/23/2024 4:00 PM EDT Office Visit [facility] Medicine Specialties [address], [address]nd [place] [address] Lavern Shoemaker MD [address] [place] [address] 02/02/2025 8:40 AM EST Office Visit [facility] Internal Medicine [address], [address] [place] [address] Alisa Kunz, DO [address] [place] [address] documented as of this encounter [...] documented as of this encounter Care Teams Cargo Services Coordinator Relationship Specialty Start Date End Date Alisa Kunz DO [address] [place] [address] PCP - General Internal Medicine 03/13/21 Kodi Bustos DO [address] [address] Surgeon Cardiothoracic Surgery 11/06/22 Sujit Arriola MD [address] [place] [address] Consulting Physician Pulmonary Disease 11/06/22 Sujit Reyes MD [address] [place] [address] Referring Physician 12/04/22 Patricia Yañez LPN [facility] TCM Nurse 08/25/24 10/17/24 Zee Lazar DO [address] [place], [place] [phone] Resident 09/08/24 documented as of this encounter
--- OUTSIDE RECORDS SUMMARY | 2024-10-26 13:09 | XMS_ITS | Encounter Summary ---
Author Organization [facility] Address [address] [place] [address] Care Team Providers Care Correction Officer Supervisor Name Role Phone Alisa Kunz DO Primary Care Provider Kodi Bustos DO Unavailable [phone] Sujit Arriola MD Unavailable [phone] Sujit Reyes MD Unavailable [phone] Patricia Yañez LPN Unavailable Unavailab Zee Lr DO Unavailable [phone] Encounter Details Date Type Department Care Team (Late st Contact Info) Description 09/17/2024 Orders Only [facility] Internal Medicine [address], [address] [place] [address] Alisa Kunz DO [address] [place] [address] Social History Tobacco Use Types [...] living in a long-term (including now)? No 09/17/2024 CAGE ASSESSMENT Answer [...] drink first t anselmo in the morning (EYE-ACCOUNTANT SYSTEMS) to steady your nerves or to get rid of a hangover? 0 08/14/2024 CAGE Questionnaire Score 0 025 Utilities Answer Date Recorded In the past 12 months has th [employer], gas, oil, or water [employer] threatened to shut off services in your [...] Description 10/27/2024 1:40 PM EDT Office Visit [facility] Endocrinology [address] [place] [address] Anne-Marie Kolb, BORING MACHINE OPERATOR [address] [facility] [address] [place] [address] 12/06/2024 11:20 AM EDT Office Visit [facility] Internal Medicine [address], [address] [place] [address] Alisa Kunz, DO [address] [place] [address] 12/23/2024 4:00 PM EDT Office Visit [facility] Medicine Specialties [address]nd [place] [address] Lavern Shoemaker MD [address] [place] [address] 02/02/2025 8:40 AM EST Office Visit [facility] Internal Medicine [address], [address] [place] [address] Alisa Kunz DO [address] [place] [address] documented as of this encounter [...] documented as of this encounter Care Teams Correction Officer Supervisor Relationship Specialty Start Date End Date Alisa Kunz DO [address] [place] [address] PCP - General Internal Medicine 03/13/21 Kodi Bustos DO [address] [place] [address] Surgeon Cardiothoracic Surgery 11/06/22 Sujit Arriola MD [address] [place] [address] [place] [address] Consulting Physician Pulmonary Disease 11/06/22 Sujit Reyes MD [address] [place] [address] Referring Physician 12/04/22 Patricia Yañez LPN [facility] TCM Nurse 08/25/24 10/17/24 Zee Lazar DO [address] [place] [address] Resident 09/08/24 documented as of this encounter
--- OUTSIDE RECORDS SUMMARY | 2024-10-26 13:09 | XMS_ITS | Encounter Summary ---
Author Organization Healthcare Address [address] [place] [address] Care Team Providers Care Banker Mason Name Role Phone Alisa Kunz DO Primary Care Provider [phone] Kodi Bustos DO Unavailable [phone] Sujit Arriola MD Unavailable [phone] Sujit Reyes MD Unavailable [phone] Patricia Yañez LPN Unavailable Unavailab Zee Lr DO Unavailable [phone] Encounter Details Date Type Department Care Team [...] Recorded Patient Health Questionnaire-2 Score 0 09/08/2024 [facility] of Occupat ional [facility] - Occupational Stress Questionnaire Answer [...] time in the past 12 m [facility], were you homeless or living in [...] time in the past 12 m [facility], were you homeless or living in [...] drink first t anselmo in the morning (EYE-LOSS PREVENTION LEADER) to steady your nerves or to [...] Description 10/27/2024 1:40 PM EDT Office Visit [facility] Endocrinology [address] [place] [address] Anne-Marie Kolb L, EARTHMOVING LABOURER 2[address] [facility] 125 [place] [address] 12/06/2024 11:20 AM EDT Office Visit [facility] Internal Medicine [address]rd [place] [address] Alisa Kunz, [address] [place] [address] 12/23/2024 4:00 PM EDT Office Visit [facility] Medicine Specialties [address], [address] [place] [address] Lavern Shoemaker MD [address] [place] [address] 02/02/2025 8:40 AM EST Office Visit [facility] Internal Medicine [address], [address]rd [place] [address] Alisa Kunz DO [address] [facility] [address] [place] [address] documented as of this encounter [...] documented as of this encounter Care Teams Banker Mason Relationship Specialty Start Date End Date Alisa Kunz DO [address] [address] PCP - General Internal Medicine 03/13/21 Kodi Bustos DO [address] [place] [phone] Surgeon Cardiothoracic Surgery 11/06/22 Sujit Arriola MD [address] [place] [address] Consulting Physician Pulmonary Disease 11/06/22 Sujit Reyes MD [address] [place] [address] Referring Physician 12/04/22 Patricia Yañez, RESOURCE MANAGEMENT SPECIALIST [facility] TCM Nurse 08/25/24 10/17/24 Zee Lazar DO [address] [place] [address] Resident 09/08/24 documented as of this encounter
--- OUTSIDE RECORDS SUMMARY | 2024-10-26 13:09 | XMS_ITS | Encounter Summary ---
Author Organization [facility] Address [address] [place] [address] Care Team Providers Care Inking Machine Tender Name Role Phone Alisa Kunz DO Primary Care Provider [phone] Kodi Bustos DO Unavailable [phone] Sujit Arriola MD Unavailable [phone] Sujit Reyes MD Unavailable [phone] Patricia Yañez LPN Unavailable Unavailab Zee Lr DO Unavailable [phone] Reason for Visit * Reason Onset Date Comments Med Refill 09/16/2024 Encounter Details Date Type Department Care Team (Late st Contact Info) Description 09/16/2024 Telephone [facility] Endocrinology [address] [place] [address] Anne-Marie Kolb L, UNDERCOVER OPERATOR [address] [facility] [address] [place] [address] Med Refill Social History Tobacco [...] [facility] of Occupat ional Health [...] first t anselmo in the morning (EYE-VEHICLE CALIBRATION ENGINEER) to steady your nerves or to get rid of a hangover? 0 08/14/2024 CAGE Questionnaire Score 0 025 Utilities Answer Date Recorded In the past 12 months has th [employer], gas, oil, or water [employer] threatened to shut off services in your [...] Office Visit [facility] Endocrinology [address] [place] [phone] Anne-Marie Kolb L, UNDERCOVER OPERATOR [address] [place] [address] 12/06/2024 11:20 AM EDT Office Visit [facility] Internal Medicine [address], 3rd [place] [address] Alisa Kunz, DO [address] [facility] [address] [place] [address] 12/23/2024 4:00 PM EDT Office Visit [facility] Medicine Specialties [address], 2nd [place] [address] Lavern Shoemaker MD [address] [place] [address] 02/02/2025 8:40 AM EST Office Visit [facility] Internal Medicine [address], 3rd [place] [address] Alisa Kunz DO [address] [address] documented as of this encounter [...] documented as of this encounter Care Teams Inking Machine Tender Relationship Specialty Start Date End Date Alisa Kunz DO [address] [facility] [address] [place] [address] PCP - General Internal Medicine 03/13/21 Kodi Bustos, DO [address] [address] Surgeon Cardiothoracic Surgery 11/06/22 Sujit Arriola MD [address] [place] [phone] Consulting Physician Pulmonary Disease 11/06/22 Sujit Reyes MD [address] [place] [address] Referring Physician 12/04/22 Patricia Yañez LPN [facility] TCM Nurse 08/25/24 10/17/24 Zee Lazar DO [address] [place] [address] Resident 09/08/24 documented as of this encounter
--- OUTSIDE RECORDS SUMMARY | 2024-10-26 13:09 | XMS_ITS | Encounter Summary ---
Author Organization [facility] Address [address] [place] [address] Care Team Providers Care Scale Expert Name Role Phone Alisa Kunz DO Primary Care Provider [phone] Kodi Bustos DO Unavailable [phone] Sujit Arriola MD Unavailable [phone] Sujit Reyes MD Unavailable [phone] Patricia Yañez LPN Unavailable Unavailab Zee Lr DO Unavailable [phone] Reason for Visit * Reason Comments Follow-up Encounter Details Date Type Department Care Team (Late st Contact Info) Description 09/22/2024 Patient Outreach [facility] [address] [facility] [address] [place] [address] Patricia Yañez LPN [facility] Follow-up Social History Tobacco Use [...] drink first t anselmo in the morning (EYE-SUSTAINABLE DESIGN CONSULTANT) to steady your nerves or to [...] have a cardioversion scheduled for 09/24/2024 at [facility]. Patient states that she has not [...] Description 10/27/2024 1:40 PM EDT Office Visit [facility] Endocrinology [address] [place] [address] Anne-Marie Kolb, SINGLE STROKE PREFORMER [address] [facility] [address] [place] [address] 12/06/2024 11:20 AM EDT Office Visit [facility] Internal Medicine [address], 3rd [place] [address] Alias Kunz, DO [address] [address] 12/23/2024 4:00 PM EDT Office Visit [facility] Medicine Specialties [address], 2nd [place] [address] Lavern Shoemaker MD [address] [place] [address] 02/02/2025 8:40 AM EST Office Visit [facility] Internal Medicine [address], 3rd [place] [address] Alisa Kunz, DO [address] [address] documented as of this encounter [...] documented as of this encounter Care Teams Scale Expert Relationship Specialty Start Date End Date Alisa Kunz DO [address] [place] [address] PCP - General Internal Medicine 03/13/21 Kodi Bustos, DO [address] [address] Surgeon Cardiothoracic Surgery 11/06/22 Sujit Arriola MD [address] [place] [address] Consulting Physician Pulmonary Disease 11/06/22 Sujit Reyes MD [address] [place] [address] Referring Physician 12/04/22 Patricia Yañez LPN [facility] TCM Nurse 08/25/24 10/17/24 Zee Lazar DO [address] [place], [place] [phone] Resident 09/08/24 documented as of this encounter
--- OUTSIDE RECORDS SUMMARY | 2024-10-26 13:09 | XMS_ITS | Encounter Summary ---
Author Organization [facility] Address [address] [place] [address] Care Team Providers Care Senior Genetic Counselor Name Role Phone ZeNitin willettgricel Wild DO Primary Care Provider [phone] Kodi Bustos DO Unavailable [phone] Sujit Arriola MD Unavailable [phone] Sujit Reyes MD Unavailable [phone] Patricia Yañez LPN Unavailable Unavailab Zee Lr DO Unavailable [phone] Encounter Details Date Type Department Care Team (Late st Contact Info) Description 09/28/2024 Telephone [facility] Diabetes Education [address] [place] [address] Anne-Marie Kolb L, DISTRIBUTION LEAD 219 [facility] 125 [place] [address] Social History Tobacco Use Types [...] 09/08/2024 [facility] of Occupat ional Health - [...] first t anselmo in the morning (EYE-SALES FORCE DEVELOPER) to steady your nerves or to get rid of a hangover? 0 08/14/2024 CAGE Questionnaire Score 0 025 Utilities Answer Date Recorded In the past 12 months has th e [employer], gas, oil, or water [employer] threatened to shut off services in your [...] Description 10/27/2024 1:40 PM EDT Office Visit [facility] Endocrinology [address] [place] [address] Anne-Marie Kolb, DISTRIBUTION LEAD [address] [place] [address] 12/06/2024 11:20 AM EDT Office Visit [facility] Internal Medicine [address], 3rd [place] [address] Alisa uKnz, DO [address] [place] [address] 12/23/2024 4:00 PM EDT Office Visit [facility] Medicine Specialties [address], 2nd [place] [address] Lavern Shoemaker MD [address] [place], [place] [phone] 02/02/2025 8:40 AM EST Office Visit [facility] Internal Medicine [address], 3rd [place] [address] Alisa Kunz, DO [address] [place] [address] documented as of this encounter [...] as of this encounter Care Teams Senior Genetic Counselor Relationship Specialty Start Date End Date Alisa Kunz DO [address] [place] [address] PCP - General Internal Medicine 03/13/21 Kodi Bustos DO [address] [address] Surgeon Cardiothoracic Surgery 11/06/22 Sujit Arriola MD [address] [place] [address] Consulting Physician Pulmonary Disease 11/06/22 Sujit Reyes MD [address] [place] [address] Referring Physician 12/04/22 Patricia Yañez LPN [facility] TCM Nurse 08/25/24 10/17/24 Zee Lazar DO [address] [place] [id number] Resident 09/08/24 documented as of this encounter
--- OUTSIDE RECORDS SUMMARY | 2024-10-26 13:09 | XMS_ITS | Encounter Summary ---
Author Organization [facility] Address [address] [place] [address] Care Team Providers Care Mining Support Worker Name Role Phone Alisa Kunz DO Primary Care Provider Kodi Bustos DO Unavailable [phone] Sujit Arriola MD Unavailable [phone] Sujit Reyes MD Unavailable [phone] Patricia Yañez LPN Unavailable Unavailab Zee Lr DO Unavailable [phone] Reason for Visit * Reason Onset Date Comments HCN Clinical Concern/Question 09/16/2024 Lo w heartrate Encounter Details Date Type Department Care Team (Late st Contact Info) Description 09/16/2024 Telephone [facility] Internal Medicine [address], [address]rd [place] [address] Alisa Kunz DO [address] [place] [address] HCN Clinical Concern/Question (Low heartrate) [...] Patient Health Questionnaire-2 Score 0 09/08/2024 [facility] of Occupat ional [facility] - Occupational Stress Questionnaire Answer Date [...] Have you had a drink first t anslemo in the morning (EYE-METER AND REGULATOR SHOP SUPERVISOR) to steady your nerves or to get rid of a hangover? 0 08/14/2024 CAGE Questionnaire Score 0 025 Utilities Answer Date Recorded In the past 12 months has th [employer], gas, oil, or water [employer] threatened to shut off services in your [...] and optimal time of day to reach caller:[phone] Note: Please do not reply to this message. Follow-up communication and further actions as a result of this message need to be communicated with the patient directly, if the patient is not active onMyChart. If the patient is active on MyChart, they will receive notification of the communication/outcome via [employer]. documented in this encounter Plan of Treatment Upcoming Encounters Date Type Department Care Team (Late st Contact Info) Description 10/27/2024 1:40 PM EDT Office Visit [facility] Endocrinology [address] [place] [address] Anne-Marie Kolb, SHEET METAL SUPERINTENDENT [address] [facility] 125 [place] [address] 12/06/2024 11:20 AM EDT Office Visit [facility] Internal Medicine [address] [place] [address] Alisa Kunz DO [address] [place] [address] 12/23/2024 4:00 PM EDT Office Visit [facility] Medicine Specialties [address], [address]nd [place] [address] Lavern Shoemaker MD [address] [place] [address] 02/02/2025 8:40 AM EST Office Visit [facility] Internal Medicine [address], [address]rd [place] [address] Alisa Kunz DO [address] [place] [address] documented as of this encounter [...] documented as of this encounter Care Teams Mining Support Worker Relationship Specialty Start Date End Date Alisa Kunz DO [address] [place] [address] PCP - General Internal Medicine 03/13/21 Kodi Bustos DO [address] [address] Surgeon Cardiothoracic Surgery 11/06/22 Sujit Arriola MD [address] [place] [address] Consulting Physician Pulmonary Disease 11/06/22 Sujit Reyes MD [address] [place] [address] Referring Physician 12/04/22 Patricia Yañez LPN [facility] TCM Nurse 08/25/24 10/17/24 Zee Lazar DO [address] [place] [address] Resident 09/08/24 documented as of this encounter
--- OUTSIDE RECORDS SUMMARY | 2024-10-26 13:09 | XMS_ITS | Encounter Summary ---
Author Organization [facility] Address [address] [place] [address] Care Team Providers Care Implementation Project Coordinator Name Role Phone Alisa Kunz DO Primary Care Provider Kodi Bustos DO Unavailable [phone] Sujit Arriola MD Unavailable [phone] Sujit Reyes MD Unavailable [phone] Patricia Yañez LPN Unavailable Unavailab Zee Lr DO Unavailable [phone] Reason for Visit * Reason Onset Date Comments HCN Lab/home Health 09/28/2024 Encounter Details Date Type Department Care Team (Late st Contact Info) Description 09/28/2024 Telephone [facility] Internal Medicine [address], [address]rd [place] [address] Alisa Kunz DO [address] [place] [address] HCN Lab/home Health Social History [...] Questionnaire-2 Score 0 09/08/2024 [facility]ational Stress Questionnaire [...] drink first t anselmo in the morning (EYE-BROOMMAKING SUPERVISOR) to steady your nerves or to get rid of a hangover? 0 08/14/2024 CAGE Questionnaire Score 0 025 Utilities Answer Date Recorded In the past 12 months has th e [employer], gas, oil, or water [employer] threatened to shut off services in your [...] week should suffice. * Telephone Encounter - Johana Besusan Meza - 09/28/2024 4:14 PM EDT Lab /Home [...] advise and frequency) Company and Caller Name: [employer] [phone] JUNE VERBAL Fax Number (if outside ): None Best contact number: [employer] [phone] Optimal time of day to reach caller: ANYTIME Additional comments/information from caller: None Note: Please do not reply to this message. Follow-up communication and further actions as a result of this message need to be communicated with the patient directly, if the patient is not active onMyChart. If the patient is active on MyChart, they will receive notification of the communication/outcome via [employer] Portal (CAP). documented in this encounter Plan of Treatment Upcoming Encounters Date Type Department Care Team (Late st Contact Info) Description 10/27/2024 1:40 PM EDT Office Visit [facility] Endocrinology [address] [place] [address] Anne-Marie Kolb L, AIR ANALYSIS ENGINEERING TECHNICIAN [address] [facility] [address] [place] [address] 12/06/2024 11:20 AM EDT Office Visit [facility] Internal Medicine [address], 3rd [place] [address] Alisa Kunz, DO [address] [place] [address] 12/23/2024 4:00 PM EDT Office Visit [facility] Medicine Specialties [address], [address]nd [place] [address] Lavern Shoemaker MD [address] [place] [address] 02/02/2025 8:40 AM EST Office Visit [facility] Internal Medicine [address], [address]rd [place] [address] Alisa Kunz DO [address] [place] [address] documented as of this encounter [...] as of this encounter Care Teams Implementation Project Coordinator Relationship Specialty Start Date End Date Alisa Kunz DO [address] [address] PCP - General Internal Medicine 03/13/21 Kodi Bustos DO [address] [place] [address] Surgeon Cardiothoracic Surgery 11/06/22 Sujit Arriola MD [address] [place] [address] Consulting Physician Pulmonary Disease 11/06/22 Sujit Reyes MD [address] [place] [address] Referring Physician 12/04/22 Patricia Yañez LPN [facility] TCM Nurse 08/25/24 10/17/24 Zee Lazar DO [address] [place] [address] Resident 09/08/24 documented as of this encounter
--- OUTSIDE RECORDS SUMMARY | 2024-10-26 13:09 | XMS_ITS | Encounter Summary ---
Author Organization Healthcare Address [address] [place] [address] Care Team Providers Care Director Of Math Name Role Phone Alisa Kunz DO Primary Care Provider [phone] Kodi Bustos DO Unavailable [phone] Sujit Arriola MD Unavailable [phone] Sujit Reyes MD Unavailable [phone] Patricia Yañez LPN Unavailable Unavailab Zee Lr DO Unavailable [phone] Encounter Details Date Type Department Care Team [...] Patient Health Questionnaire-2 Score 0 09/08/2024 [facility] of Occupat ional [facility] - Occupational Stress Questionnaire Answer Date [...] in a group home (including now)? No 09/13/2024 CAGE ASSESSMENT [...] drink first t anselmo in the morning (EYE-ROUGH RIB GRADER) to steady your nerves or to get rid of a hangover? 0 08/14/2024 CAGE Questionnaire Score 0 025 Utilities Answer Date Recorded In the past 12 months has th e [employer], gas, oil, or water [employer] threatened to shut off services in your [...] No 025 8:00 AM EDT Sunny Ramirez, EVIAT 2. Non-Specific Active Suici dillon Thoughts (Past 1 Month) No 09/15/2024 8:00 AM EDT Flora Ramirez RN 6. Suicidal Behavior (Lifetime) No 8:00 AM EDT Sunny Ramirez RN documented as of this encounter Plan of Treatment Upcoming Encounters Date Type Department Care Team (Late st Contact Info) Description 10/27/2024 1:40 PM EDT [facility] [address] [place] [address] Anne-Marie Kolb, ASSISTANT READING TEACHER [address] [place] [address] 12/06/2024 11:20 AM EDT Office Visit [facility] Internal Medicine [address], 3rd [place] [address] Alisa Kunz DO [address] [place] [address] 12/23/2024 4:00 PM EDT Office Visit [facility] Medicine Specialties [address], [address]nd [place] [address] Lavern Shoemaker MD [address] [place] [address] 02/02/2025 8:40 AM EST Office Visit [facility] Internal Medicine [address], [address] [place] [address] Alisa Kunz DO [address] [address] documented as of this encounter [...] of this encounter Care Teams Director Of Math Relationship Specialty Start Date End Date Alisa Kunz DO [address] [address] PCP - General Internal Medicine 03/13/21 Kodi Bustos DO [address] [place] [address] Surgeon Cardiothoracic Surgery 11/06/22 Sujit Arriola MD [address] [place] [address] Consulting Physician Pulmonary Disease 11/06/22 Sujit Reyes MD [address] [place] [address] Referring Physician 12/04/22 Patricia Yañez LPN [facility] TCM Nurse 08/25/24 10/17/24 Zee Lazar DO [address] [place] [address] Resident 09/08/24 documented as of this encounter
--- OUTSIDE RECORDS SUMMARY | 2024-10-26 13:09 | XMS_ITS | Encounter Summary ---
Author Organization [facility] Address [address] [place] [address] Care Team Providers Care Life Skills Specialist Name Role Phone Alisa Kunz DO Primary Care Provider [phone] Kodi Bustos DO Unavailable [phone] Sujit Arriola MD Unavailable [phone] Sujit Reyes MD Unavailable [phone] Patricia Yañez LPN Unavailable Unavailab Zee Lr DO Unavailable [phone] Encounter Details Date Type Department Care Team (Late st Contact Info) Description 09/16/2024 Telephone [facility] Medicine Specialties [address], [address] [place] [address] [place] [address] Social History Tobacco Use Types Packs/Day Years [...] you attend [facility] or sikh services? 1 to 4 times [...] Recorded Patient Health Questionnaire-2 Score 0 09/08/2024 [facility] of Occupat ional Health - Occupational Stress [...] drink first t anselmo in the morning (EYE-FLOWERS SALESPERSON) to steady your nerves or to get rid of a hangover? 0 08/14/2024 CAGE Questionnaire Score 0 025 Utilities Answer Date Recorded In the past 12 months has th e [employer], gas, oil, or water company threatened to [...] she calls back, please send her to [facility]. * Telephone Encounter - Shabana Hernández [...] there was previous discussion about going to [facility], she's wondering if that would be the next step or if she would need to see a cloth folder machine with us first She would like a call back from the nursing team as quickly as possible CB: [phone] documented in this encounter Plan of Treatment Upcoming Encounters Date Type Department Care Team (Late st Contact Info) Description 10/27/2024 1:40 PM EDT Office Visit [facility] Endocrinology [address] [place] [address] Anne-Marie Kolb, TUBERCULOSIS SPECIALIST 2[address] [facility] 125 [place] [address] 12/06/2024 11:20 AM EDT Office [facility] Internal Medicine [address], [address]rd [place] [address] Alisa Kunz, DO [address] [address] 12/23/2024 4:00 PM EDT Office Visit [facility] Medicine Specialties [address]nd [place] [address] Lavern Shoemaker MD [address] [place] [address] 02/02/2025 8:40 AM EST Office [facility] Internal Medicine [address], 3[address] [place] [address] Alisa Kunz, DO [address] [place] [address] documented as [...] documented as of this encounter Care Teams Life Skills Specialist Relationship Specialty Start Date End Date Alisa Kunz DO [address] [place] [address] PCP - General Internal Medicine 03/13/21 Kodi Bustos DO [address] [phone] Surgeon Cardiothoracic Surgery 11/06/22 Sujit Arriola MD [address] [place] [address] Consulting Physician Pulmonary Disease 11/06/22 Sujit Reyes MD [address] [place] [address] Referring Physician 12/04/22 Patricia Yañez LPN [facility] TCM Nurse 08/25/24 10/17/24 Zee Lazar DO [address] [place], [place] [id number] Resident 09/08/24 documented as of this encounter
--- OUTSIDE RECORDS SUMMARY | 2024-10-26 13:10 | XMS_ITS | Encounter Summary ---
Author Organization Healthcare Address [address] [place] [address] Care Team Providers Care Bridal Stylist Sales Consultant Name Role Phone ZeNitin willettgricel Wild DO Primary Care Provider Kodi Bustos DO Unavailable [phone] Sujit Arriola MD Unavailable [phone] Sujit Reyes MD Unavailable [phone] Patricia Yañez BACTERIOLOGIST FOOD Unavailable Unavailab Zee Lr DO Unavailable [phone] Encounter Details Date Type Department Care Team (Late st Contact Info) Description 09/20/2024 Telephone [facility] Endocrinology [address] [place] [address] Anne-Marie Kolb L, PENCILS WASHER [address] [facility] [address] [place] [address] Social History Tobacco Use Types [...] drink first t anselmo in the morning (EYE-FILTER FILLER) to steady your nerves or to get rid of a hangover? 0 08/14/2024 CAGE Questionnaire Score 0 025 Utilities Answer Date Recorded In the past 12 months has th [employer], gas, oil, or water [employer] threatened to shut off services in your [...] Description 10/27/2024 1:40 PM EDT Office Visit [facility] Endocrinology [address] [place] [address] Anne-Marie Kolb, PENCILS WASHER 2195 [facility] 125 [place] [address] 12/06/2024 11:20 AM EDT Office Visit [facility] Internal Medicine [address], 3rd [place] [address] Alisa Kunz, DO [address] [address] 12/23/2024 4:00 PM EDT Office Visit [facility] Medicine Specialties [address], 2nd [place] [address] Lavern Shoemaker MD [address] [place] [address] 02/02/2025 8:40 AM EST Office Visit [facility] Internal Medicine [address], 3rd [place] [address] Alisa Kunz, DO [address] [place] [address] documented as of this encounter [...] documented as of this encounter Care Teams Bridal Stylist Sales Consultant Relationship Specialty Start Date End Date Alisa Kunz DO [address] [place] [address] PCP - General Internal Medicine 03/13/21 Kodi Bustos DO [address] [address] Surgeon Cardiothoracic Surgery 11/06/22 Sujit Arriola MD [address] [place] [address] Consulting Physician Pulmonary Disease 11/06/22 Sujit Reyes MD [address] [place] [address] Referring Physician 12/04/22 Patricia Yañez LPN [facility] TCM Nurse 08/25/24 10/17/24 Zee Lazar DO [address] [place], [place] [phone] Resident 09/08/24 documented as of this encounter
--- OUTSIDE RECORDS SUMMARY | 2024-10-26 13:11 | XMS_ITS | Encounter Summary ---
[facility] Address [address] [place] [address] Care Team Providers Care Rail Signal Worker Name Role Phone Alisa Kunz Primary Care Provider [phone] Encounter Details Date Type Department Care Team [...] 10:26 AM EDT Cece Prieto RN * Obion Suicide Severity Rating Scale (Screener/Recent Self-Report) Question Answer Date of Assessment Author 6. Suicidal Behavior (Lifetime) No 10:26 AM EDT Cece Prieto RN documented as of this encounter Plan of Treatment Upcoming Encounters Date Type Department Care Team (Late st Contact Info) Description 12/02/2024 3:30 PM EDT Office Visit [facility] CARDIOLOGY [address] [facility] [place] [address] Sujit Reyes MD [facility] [facility] [address] [place] [address] 01/19/2025 1:45 PM EST Office Visit [facility] CARDIOLOGY 1720 [facility] [address] [place] [address] Naveen Velaqsuez MD [address] [facility] [address] [place] [address] documented as of this encounter Visit Diagnoses Not on filedocumented in this encounter Care Teams Rail Signal Worker Relationship Specialty Start Date End Date Alisa Kunz DO 0 [place] [address] PCP - General Internal Medicine 04/26/21 documented as of this encounter
--- OUTSIDE RECORDS SUMMARY | 2024-10-26 13:11 | XMS_ITS ---
Author Organization [facility] Address [address] [place] [address] Care Team Providers Care Automotive Manager Name Role Phone Alisa Kunz Torri DO Primary Care Provider [phone] Kodi Bustos DO Unavailable [phone] Sujit Arriola MD Unavailable [phone] Sujit Reyes MD Unavailable [phone] Zee Lazar DO Unavailable [phone] Transitional Care Management Status:Closed (Closed) Start date:08/25/2024 Enrollment date:08/25/2024 Enrollment reason:Identified using hospital discharge data End date:09/17/2024 Close reason:Patient Readmitted Overview This episode type is for outpatient care managers enrolling patients in the [facility] Transitional Care Management program. Continued Care and Services Coordination
--- OUTSIDE RECORDS SUMMARY | 2024-10-26 13:11 | XMS_ITS | Encounter Summary ---
Author Organization [facility] Address [address] [place] [address] Care Team Providers Care City Supervisor Name Role Phone Alisa Kunz Primary Care Provider [phone] Encounter Details Date Type Department Care Team (Latest Contact Info) Description 10/05/2024 Anticoagulation Visit [facility] ANTICO[facility]ULATION CLINIC 1720 [facility] [address] [place] [address] Mike Mariee, General Maintenance Engineer Left ventricular apical thrombus (Primary Dx) Social [...] this encounter Progress Notes * Mike Mariee, General Maintenance Engineer - 10/05/2024 8:42 AM EDT [facility] Antico[facility] Clinic Progress Note Patient Demographics Method of INR reporting: [place] Home Monitor SN [id number] Estimated OOP Cost: Indication: Left Ventricular Atypical Thrombus (~2012) Referring Provider Nanette Pryor APRN Reason patient is not on a DOAC: Goal INR: 2-3 Warfarin Start Date ~02/12/24 Reason patient is not on home monitor: [id number]: Planned Duration of Therapy Indefinite Relevant medical [...] - HM 1.4 - Clinic 1.32 - LIGHTNING PROTECTION INSTALLER 2.8 2.0 Notes Admitted [facility] Rec'd 05/27 [...] Verbal release: Signed 03/05/24 Preferred contact number: [phone] Alternative contact number(s): [phone] (Doron) [phone] (Ruthie) [phone] (Madyson) Patient Appropriate for WarfNoCall ? No [...] no further questions at this time. Mike Mariee [facility] 10/05/2024 09:01 EDT I, Marj Delgado, PharmD, have reviewed the note in full and agree with the assessment and plan. 10/05/24 09:48 EDT documented in this encounter Plan of Treatment Upcoming Encounters Date Type Department Care Team (Late st Contact Info) Description 12/02/2024 3:30 PM EDT Office Visit [facility] CARDIOLOGY [address] [place] [address] [place] [address] Sujit Reyes MD [address] [facility] [address] [address] 01/19/2025 1:45 PM EST Office Visit [facility] CARDIOLOGY 1720 [facility] [address] [place] [address] Naveen Velasquez MD 1720 [facility] E [address] [place], [place] [address] documented as of this encounter Procedures Procedure Name Priority Date/Time Associated Diagnosis Comments SCANNED - LABS 10/05/2024 PROTIME-INR Routine 10/04/2024 documented in this encounter Results * LABS SCANNED (10/05/2024) [facility] LAB BLOOD ORDERABLES Final Re sult * Protime-INR (10/04/2024) INR 2.04 Blood 10/04/2024 [facility] Provider LAB BLOOD ORDERABLES Lee Ann l Result documented in this encounter Visit Diagnoses Diagnosis Left ventricular apical thrombus- Primary documented in this encounter Care Teams City Supervisor Relationship Specialty Start Date End Date Alisa Kunz DO [address] [place] [address] PCP - General Internal Medicine 04/26/21 documented as of this encounter
--- OUTSIDE RECORDS SUMMARY | 2024-10-26 13:11 | XMS_ITS | Encounter Summary ---
Author Organization Healthcare Address [address] [place] [address] Care Team Providers Care Resident Care Manager Rn Name Role Phone Alisa Kunz DO Primary Care Provider [phone] Kodi Bustos DO Unavailable [phone] Sujit Arriola MD Unavailable [phone] Sujit Reyes MD Unavailable [phone] Patricia Yañez LPN Unavailable Unavailab le Reason for Visit * Reason Onset Date Comments Med Refill 08/27/2024 Encounter Details Date Type Department Care Team (Late st Contact Info) Description 08/27/2024 Refill [facility] Medicine Specialties [address], [address] [place] [address] Ruthie Moy MD [address] [place] [address] Systemic lupus erythematosus (SLE) in adult (CMS/[facility]) Social History Tobacco Use Types [...] drink first t anselmo in the morning (EYE-PIPE LINE GAUGER) to steady your nerves or to get rid of a hangover? 0 08/14/2024 CAGE Questionnaire Score 0 025 Utilities Answer Date Recorded In the past 12 months has th e [employer], gas, oil, or water [employer] threatened to shut off services in your [...] Description 10/27/2024 1:40 PM EDT Office Visit [facility] Endocrinology [address] [place] [address] Anne-Marie Kolb, THEATRICAL TROUPER [address] [place] [address] 12/06/2024 11:20 AM EDT Office Visit [facility] Internal Medicine [address], 3rd [place] [address] Alisa Kunz, DO [address] [place] [address] 12/23/2024 4:00 PM EDT Office Visit [facility] Medicine Specialties [address], 2nd [place] [address] Lavern Shoemaker MD [address] [place] [address] 02/02/2025 8:40 AM EST Office Visit [facility] Internal Medicine [address], 3rd [place] [address] Alisa Kunz, DO [address] [address] documented as of this encounter Visit Diagnoses Diagnosis Systemic lupus erythematosus (SLE) in adult (CMS/[facility]) documented in this encounter Additional Health Concerns Assessment Noted Time PHQ-9 Depression Total Score: 8 07/22/19 25 9:23 AM EDT A fall risk assessment has been complete d for the patient 08/04/2024 10:41 AM EDT A Body Mass Index follow-up plan has been documented for the patient 08/24/2024 2:26 PM EDT documented as of this encounter Care Teams Resident Care Manager Rn Relationship Specialty Start Date End Date Alisa Kunz DO [address] [facility] [address] [place] [address] PCP - General Internal Medicine 03/13/21 Kodi Butsos, DO [address] [place] [address] Surgeon Cardiothoracic Surgery 11/06/22 Sujit Arriola MD [address] [place] [address] Consulting Physician Pulmonary Disease 11/06/22 Sujit Reyes MD [address] [place] [address] Referring Physician 12/04/22 Patricia Yañez LPN [facility] TCM Nurse 08/25/24 10/17/24 documented as of this encounter
--- OUTSIDE RECORDS SUMMARY | 2024-10-26 13:11 | XMS_ITS | Encounter Summary ---
Author Organization [facility] Address [address] [place] [address] Care Team Providers Care Arts Education Teacher Name Role Phone Alisa Kunz DO Primary Care Provider Kodi Bustos DO Unavailable [phone] Sujit Arriola MD Unavailable [phone] Sujit Reyes MD Unavailable [phone] Patricia Yañez LPN Unavailable Unavailab le Reason for Visit * Reason Onset Date Comments HCN Clinical Concern/Question 08/25/2024 Encounter Details Date Type Department Care Team (Late st Contact Info) Description 08/25/2024 Telephone [facility] Internal Medicine [address] [place] [address] Alisa Kunz DO [address] [place] [address] HCN Clinical Concern/Question Social History [...] How often do you attend chur or evangelical services? 1 to 4 times [...] Recorded Patient Health Questionnaire-2 Score 0 08/04/2024 [facility] of Occupat ional [...] drink first t anselmo in the morning (EYE-TELEGRAPHIC INSTRUMENT SUPERVISOR) to steady your nerves or to get rid of a hangover? 0 08/14/2024 CAGE Questionnaire Score 0 025 Utilities Answer Date Recorded In the past 12 months has th [email or web address], [employer], oil, or water [employer]) threatened to shut off services in your [...] pt for more information. Best contact number: [phone] (mobile) Optimal time of day to reach caller: ANYTIME Additional comments/information from caller: None Note: Please do not reply to this message. Follow-up communication and further actions as a result of this message need to be communicated with the patient directly, if the patient is not active onMyChart. If the patient is active on MyChart, they will receive notification of the communication/outcome via [employer]. documented in this encounter Plan of Treatment Upcoming Encounters Date Type Department Care Team (Late st Contact Info) Description 10/27/2024 1:40 PM EDT Office Visit [facility] Endocrinology [address] [place] [address] Anne-Marie Kolb, FLASHER ADJUSTER [address] [facility] [address] [place] [address] 12/06/2024 11:20 AM EDT Office Visit [facility] Internal Medicine [address] [place] [address] Alisa Kunz DO [address] [place] [address] 12/23/2024 4:00 PM EDT Office Visit [facility] Medicine Specialties [address] [place] [address] Lavern Shoemaker MD [address] [place] [address] 02/02/2025 8:40 AM EST Office Visit [facility] Internal Medicine [address] [place] [address] Alisa Kunz DO [address] [address] documented as of this encounter [...] documented as of this encounter Care Teams Arts Education Teacher Relationship Specialty Start Date End Date Alisa Kunz DO [address] [address] PCP - General Internal Medicine 03/13/21 Kodi Bustos DO [address] [place] [address] Surgeon Cardiothoracic Surgery 11/06/22 Sujit Arriola MD [address] [place] [address] Consulting Physician Pulmonary Disease 11/06/22 Sujit Reyes MD [address] [place] [address] Referring Physician 12/04/22 Patricia Yañez LPN [facility] TCM Nurse 08/25/24 10/17/24 documented as of this encounter
--- OUTSIDE RECORDS SUMMARY | 2024-10-26 13:11 | XMS_ITS | Encounter Summary ---
Author Organization [facility] Address [address] [place] [address] Care Team Providers Care Clock Maker Name Role Phone Alisa Kunz Primary Care Provider [phone] Encounter Details Date Type Department Care Team (Late st Contact Info) Description 10/07/2024 Telephone [facility] 1720 [facility] [address] [place] [address] Mike Mariee, Applications Sales Representative Social History Tobacco Use Types Packs/Day Years [...] Notes * Telephone Encounter - Mike Mariee, Applications Sales Representative - 10/07/2024 2:16 PM EDT Called patient to discuss HM or remote lab options for INR rechecks. Patient would prefer to continue with Ge HM and will schedule in clinic appt in the future to obtain replacement HM. Mike Mariee [facility] 10/07/2024 14:18 EDT documented in this encounter Plan of Treatment Upcoming Encounters Date Type Department Care Team (Late st Contact Info) Description 12/02/2024 3:30 PM EDT Office Visit [facility] CARDIOLOGY [address] [facility] [place] [address] Sujit Reyes MD [address] [place] [address] 01/19/2025 1:45 PM EST Office Visit [facility] CARDIOLOGY [address] [place] [address] Naveen Velasquez MD [address] [place] [address] documented as of this encounter Visit Diagnoses Not on filedocumented in this encounter Care Teams Clock Maker Relationship Specialty Start Date End Date Alisa Kunz DO [address] [place] [address] PCP - General Internal Medicine 04/26/21 documented as of this encounter
--- OUTSIDE RECORDS SUMMARY | 2024-10-26 13:11 | XMS_ITS | Encounter Summary ---
Author Organization [facility] Address [address] [place] [address] Care Team Providers Care Parts Finisher Name Role Phone Alisa Kunz DO Primary Care Provider [phone] Laura Albright SUPERVISOR MAIL CARRIERS Unavailable Unavailable Balwinder Vale Unavailable Unavailable Kodi Bustos DO Unavailable [phone] Sujit Arriola MD Unavailable [phone] HatLaura navas LPN Unavailable Unavailable Sujit Reyes MD Unavailable [phone] Zully Caldwell SUPERVISOR MAIL CARRIERS Unavailable Unavailable HatLaura navas SUPERVISOR MAIL CARRIERS Unavailable Unavailable HatLaura navas SUPERVISOR MAIL CARRIERS Unavailable Unavailable Tanya Powell Unavailable [phone] Sarah Reyes SUPERVISOR MAIL CARRIERS Unavailable Unavailable Ekaterina Gómez Unavailable Unavailable Zully Caldwell SUPERVISOR MAIL CARRIERS Unavailable Unavailable Ekaterina Gómez Unavailable Unavailable Patricia Yañez SUPERVISOR MAIL CARRIERS Unavailable Unavailab Zee Lr DO Unavailable [phone] Reason for Visit * Reason Comments Med Refill Encounter Details Date Type Department Care Team (Late st Contact Info) Description 03/18/2022 Refill [facility] Internal Medicine [address], 3rd [place] [address] Alisa Kunz DO [address] [place] [address] Social History Tobacco Use Types Packs/Day Years [...] Description 10/27/2024 1:40 PM EDT [facility] [address] [place] [address] Anne-Marie Kolb, YAMILET [address] [place] [address] 12/06/2024 11:20 AM EDT Office Visit [facility] Internal Medicine [address] 3[address] [place] [address] Alisa Kunz, DO [address] [facility] [address] [place] [address] 12/23/2024 4:00 PM EDT Office Visit [facility] Medicine Specialties [address], [address] [place] [phone] Lavern Shoemaker MD [address] [place] [address] 02/02/2025 8:40 AM EST Office Visit [facility] Internal Medicine [address], 3rd [place] [address] Alisa Kunz, DO [address] [facility] [address] [place] [address] documented as of this encounter [...] as of this encounter Care Teams Parts Finisher Relationship Specialty Start Date End Date Alisa Kunz DO [address] [place] [address] PCP - General Internal Medicine 03/13/21 Laura Albright LPN [employer] [place] [address] TCM Nurse 08/30/22 09/27/22 Balwinder Vale [address] [address] Community Health Worker Head Sawyer 08/30/22 09/06/22 Kodi Bustos DO [address] [address] Surgeon Cardiothoracic Surgery 11/06/22 Sujit Arriola MD [address] [place] [address] Consulting Physician Pulmonary Disease 11/06/22 Laura Albright LPN VALUE[employer] [place] [address] TCM Nurse 12/02/22 01/01/23 Sujit Reyes MD [address] [place] [address] Referring Physician 12/04/22 Zully Caldwell LPN VALUE-[employer] [place] [address] TCM Nurse 02/03/23 03/05/23 Laura Albright LPN VALUE-[employer] [place] [address] TCM Nurse 08/05/23 09/04/23 Laura Albright LPN VALUE[employer] [place] [address] TCM Nurse 02/17/24 03/18/24 Tanya Powell 2195 [facility] 125 [place] [address] Registered Nurse 04/02/24 07/01/24 Sarah Reyes LPN TCM Nurse 05/27/24 06/26/24 Ekaterina Gómez Block Feeder Head Sawyer 07/14/24 07/14/24 Zully Caldwell LPN VALUE-[employer] [place] [address] TCM Nurse 07/16/24 08/15/24 Ekaterina Gómez Block Feeder Head Sawyer 08/16/24 08/16/24 Patricia Yañez LPN [facility] TCM Nurse 08/25/24 10/17/24 Zee Lazar DO [address] [place] [address] Resident 09/08/24 documented as of this encounter
--- OUTSIDE RECORDS SUMMARY | 2024-10-26 13:11 | XMS_ITS | Encounter Summary ---
Author Organization [facility] Address [address] [place] [address] Care Team Providers Care Contract Project Manager Name Role Phone Alisa Kunz DO Primary Care Provider [phone] Kodi Bustos DO Unavailable [phone] Sujit Arriola MD Unavailable [phone] Sujit Reyes MD Unavailable [phone] Patricia Yañez LPN Unavailable Unavailab Zee Lr DO Unavailable [phone] Reason for Visit * Reason Onset Date Comments HCN Clinical Concern/Question 08/30/2024 Encounter Details Date Type Department Care Team (Late st Contact Info) Description 08/30/2024 Telephone [facility] Internal Medicine [address] [place] [address] Alisa Kunz DO [address] [place] [address] HCN Clinical Concern/Question Social History [...] often do you attend chur ch or temple services? 1 to 4 times [...] Questionnaire-2 Score 0 09/08/2024 [facility] - Occupational Stress Questionnaire [...] time in the past 12 [address] [facility], were you homeless or living in [...] time in the past 12 m [facility], were you homeless or living in [...] drink first t anselmo in the morning (EYE-SHED WORKERS SUPERVISOR) to steady your nerves or to get rid of a hangover? 0 08/14/2024 CAGE Questionnaire Score 0 025 Utilities Answer Date Recorded In the past 12 months has th e [employer], gas, oil, or water [employer] threatened to shut off services in your [...] Please call to advise Best contact number: [phone] (mobile) Optimal time of day to reach [...] 10/27/2024 1:40 PM EDT [facility] [address] [place] [address] Anne-Marie Kolb, CHAIN LINK FENCE INSTALLER [address] [place] [address] 12/06/2024 11:20 AM EDT Office Visit [facility] Internal Medicine [address] 3rd [place] [address] Alisa Kunz L, DO [address] [place] [address] 12/23/2024 4:00 PM EDT Office Visit [facility] Medicine Specialties [address], [address]nd [place] [address] Lavern Shoemaker MD [address] [place], [place] [phone] 02/02/2025 8:40 AM EST Office Visit [facility] Internal Medicine [address], 3rd [place] [address] Alisa Kunz, DO [address] [facility] [address] [place] [address] documented as of this encounter [...] documented as of this encounter Care Teams Contract Project Manager Relationship Specialty Start Date End Date Alisa Kunz DO [address] [place] [address] PCP - General Internal Medicine 03/13/21 Kodi Bustos DO [address] [address] Surgeon Cardiothoracic Surgery 11/06/22 Sujit Arriola MD [address] [place] [address] Consulting Physician Pulmonary Disease 11/06/22 Sujit Reyes MD [address] [place] [address] Referring Physician 12/04/22 Patricia Yañez LPN [facility] TCM Nurse 08/25/24 10/17/24 Zee Lazar DO [address] [place], [place] [address] Resident 09/08/24 documented as of this encounter
--- OUTSIDE RECORDS SUMMARY | 2024-10-26 13:11 | XMS_ITS | Encounter Summary ---
Author Organization Healthcare Address [address] [place] [address] Care Team Providers Care Customer Insight Analyst Name Role Phone Alisa Kunz Torri DO Primary Care Provider [phone] Kodi Bustos DO Unavailable [phone] Sujit Arriola MD Unavailable [phone] Sujit Reyes MD Unavailable [phone] Patricia Yañez LPN Unavailable Unavailab le Encounter Details Date Type Department Care Team (Late st Contact Info) Description 08/27/2024 Telephone [facility] Medicine Specialties [address], [address] [place] [address] Sarah Hernadez RN CH-VASCULAR & INTERVENTIONAL RADIOLOGY [...] week 08/30/2022 How often do you attend [facility] or islam services? 1 to 4 times [...] Recorded Patient Health Questionnaire-2 Score 0 08/04/2024 [facility] - [...] drink first t anselmo in the morning (EYE-FINISH MENDER) to steady your nerves or to get rid of a hangover? 0 08/14/2024 CAGE Questionnaire Score 0 025 Utilities Answer Date Recorded In the past 12 months has th e [employer], gas, oil, or water company threatened to [...] Description 10/27/2024 1:40 PM EDT Office Visit [facility] Endocrinology [address] [place] [address] Anne-Marie Kolb L, TOOL PROGRAMMER 2[address] [facility] [address] [place] [address] 12/06/2024 11:20 AM EDT Office Visit [facility] Internal Medicine [address], 3rd [place] [address] Alisa Kunz, [address] [place] [address] 12/23/2024 4:00 PM EDT Office Visit [facility] Medicine Specialties [address], 2nd [place] [address] Lavern Shoemaker MD [address] [place] [address] 02/02/2025 8:40 AM EST Office Visit [facility] Internal Medicine [address], 3rd [place] [address] Alisa Kunz DO [address] [place] [address] documented as of this encounter [...] documented as of this encounter Care Teams Customer Insight Analyst Relationship Specialty Start Date End Date Alisa Kunz DO [address] [place] [address] PCP - General Internal Medicine 03/13/21 Kodi Bustos DO [address] [place] [address] Surgeon Cardiothoracic Surgery 11/06/22 Sujit Arriola MD [address] [place] [address] Consulting Physician Pulmonary Disease 11/06/22 Sujit Reyes MD [address] [place] [address] Referring Physician 12/04/22 Patricia Yañez LPN [facility] TCM Nurse 08/25/24 10/17/24 documented as of this encounter
--- OUTSIDE RECORDS SUMMARY | 2024-10-26 13:11 | XMS_ITS | Encounter Summary ---
Author Organization Healthcare Address [address] [place] [address] Care Team Providers Care Hand Umbrella Tipper Name Role Phone Ze, Alisa Wild DO Primary Care Provider [phone] Kodi Bustos DO Unavailable [phone] Sujit Arriola MD Unavailable [phone] Sujit Reyes MD Unavailable [phone] Zully Caldwell OPERATIONAL INTELLIGENCE ANALYST Unavailable Unavailable Ekaterina Gómez Unavailable Unavailable Patricia Yañez OPERATIONAL INTELLIGENCE ANALYST Unavailable Unavailab le Encounter Details Date Type Department Care Team (Late st Contact Info) Description 08/06/2024 Telephone [facility] Endocrinology [address] [place] [address] Anne-Marie Kolb, ENGINEERING DESIGN MANAGER [address] [facility] [address] [place] [address] Social History Tobacco Use Types [...] Patient Health Questionnaire-2 Score 0 08/04/2024 [facility] of Occupat ional Health [...] drink first t anselmo in the morning (EYE-DE ICER INSTALLER) to steady your nerves or to get rid of a hangover? 0 08/14/2024 CAGE Questionnaire Score 0 025 Utilities Answer Date Recorded In the past 12 months has e [employer], gas, oil, or water [employer] threatened to shut off services in [...] 1 Month) No 025 8:11 AM EDT Ksota Dugan RN 2. Non-Specific Active Suici dillon [...] Office Visit [facility] Endocrinology [address] [place] [address] Anne-Marie Kolb, ENGINEERING DESIGN MANAGER [address] [facility] 125 [place] [address] 12/06/2024 11:20 AM EDT Office Visit [facility] Internal Medicine [address], 3rd [place] [address] Alisa Kunz, DO [address] [facility] [address] [place] [address] 12/23/2024 4:00 PM EDT Office Visit [facility] Medicine Specialties [address], [address] [place] [address] Lavern Shoemaker MD [address] [place] [address] 02/02/2025 8:40 AM EST Office Visit [facility] Internal Medicine [address], 3rd [place] [address] Alisa Kunz, DO [address] [address] documented as of this encounter [...] documented as of this encounter Care Teams Hand Umbrella Tipper Relationship Specialty Start Date End Date Alisa Kunz DO [address] [address] PCP - General Internal Medicine 03/13/21 Kodi Bustos DO [address] [place] [address] Surgeon Cardiothoracic Surgery 11/06/22 Sujit Arriola MD [address] [place] [address] Consulting Physician Pulmonary Disease 11/06/22 Sujit Reyes MD [address] [place] [address] Referring Physician 12/04/22 Zully Caldwell LPN VALUE-BASED [place] [address] TCM Nurse 07/16/24 08/15/24 Ekaterina Gómez Accounts Payable Payroll Coordinator Director Of Medical Staff Services 08/16/24 08/16/24 Patricia Yañez LPN [facility] TCM Nurse 08/25/24 10/17/24 documented as of this encounter
--- OUTSIDE RECORDS SUMMARY | 2024-10-26 13:11 | XMS_ITS | Encounter Summary ---
Author Organization [facility] Address [address] [place] [address] Care Team Providers Care Warehouse Guard Name Role Phone Alisa Kunz DO Primary Care Provider [phone] Kodi Bustos DO Unavailable [phone] Sujit Arriola MD Unavailable [phone] Sujit Reyes MD Unavailable [phone] Patricia Yañez LPN Unavailable Unavailab Zee Lr DO Unavailable [phone] Reason for Visit * Reason Comments TCM Call Encounter Details Date Type Department Care Team (Late st Contact Info) Description 08/25/2024 Patient Outreach [facility] [address] [facility], [address] [place] [address] Patricia Yañez LPN [facility] TCM Call Social [...] Recorded Patient Health Questionnaire-2 Score 0 09/08/2024 [facility] of Occupat ional Health - Occupational [...] living in a custodial (including now)? No 09/17/2024 CAGE ASSESSMENT Answer [...] drink first t anselmo in the morning (EYE-CAKE WINDER) to steady your nerves or to get [...] Discharge Date: 08/24/2024 Hospital Service: [facility] Discharge Diagnosis: Acute on chronic hypoxic respiratory [...] Description 10/27/2024 1:40 PM EDT Office Visit [facility] Endocrinology [address] [place] [address] Anne-Marie Kolb, LEASING MANAGER [address] [place] [address] 12/06/2024 11:20 AM EDT Office Visit [facility] Internal Medicine [address] 3rd [place] [address] Alisa Kunz, DO [address] [place] [address] 12/23/2024 4:00 PM EDT Office Visit [facility] Medicine Specialties [address] [place] [address] Lavern Shoemaker MD [address] [place] [address] 02/02/2025 8:40 AM EST Office Visit [facility] Internal Medicine [address] 3[address] [place] [address] Alisa Kunz, DO [address] [address] documented as of this encounter [...] documented as of this encounter Care Teams Warehouse Guard Relationship Specialty Start Date End Date Alisa Kunz DO [address] [address] PCP - General Internal Medicine 03/13/21 Kodi Bustos DO [address] [place] [address] Surgeon Cardiothoracic Surgery 11/06/22 Sujit Arriola MD [address] [place] [address] Consulting Physician Pulmonary Disease 11/06/22 Sujit Reyes MD [address] [place] [address] Referring Physician 12/04/22 Patricia Yañez LPN [facility] TCM Nurse 08/25/24 10/17/24 Zee Lazar DO [address] [place] [phone] Resident 09/08/24 documented as of this encounter
--- OUTSIDE RECORDS SUMMARY | 2024-10-26 13:11 | XMS_ITS | Encounter Summary ---
[facility] Address [address] [place] [address] Care Team Providers Care Inspector Firearms Name Role Phone Alisa Kunz Primary Care Provider [phone] Encounter Details Date Type Department Care Team (Late st Contact Info) Description 10/12/2024 Telephone [facility] [address] [facility] [address] [place] [address] Marj Delgado, PharmD [address] [place] [address] Social History Tobacco Use Types [...] 10:26 AM EDT Cece Prieto RN * [place] Suicide Severity Rating Scale (Screener/Recent Self-Report) Question [...] go get INR checked on Friday at [facility]. Marj Delgado PharmD 10/13/2024 11:45 EDT * Telephone Encounter - Marj Delgado PharmD - 10/12/2024 11:24 AM EDT Spoke to Rosalba from cardio, patients INR today on admission was 1.37, still having concerns over patients home monitor. Last INR check was 2.04 on 10/04 at [facility] (not home monitor)- patient had been taking [...] EDT Office Visit [facility] CARDIOLOGY [address] [facility] [place] [address] Sujit Reyes MD [address] [place] [address] 01/19/2025 1:45 PM EST Office Visit [facility] CARDIOLOGY [address] [place] [address] Naveen Velasquez MD [address] [place] [address] documented as of this encounter Visit Diagnoses Not on filedocumented in this encounter Care Teams Inspector Firearms Relationship Specialty Start Date End Date Alisa Kunz DO [address] [place] [address] PCP - General Internal Medicine 04/26/21 documented as of this encounter
--- OUTSIDE RECORDS SUMMARY | 2024-10-26 13:11 | XMS_ITS | Encounter Summary ---
Author Organization [facility] ystem Address [address] [place] [address] Care Team Providers Care Die Maker Trim Name Role Phone Alisa Kunz Primary Care Provider [phone] Reason for Referral * Cardiac (Routine) - Closed Specialty Diagnoses / Procedures Referred By Luis Armando t Referred To Contact Diagnoses Paroxysmal atrial fibrillation Procedures Cardioversion External in Cardiology Department Naveen Velasquez MD [address] [facility] [address] [place] [address] Phone: tel: fax: Referral ID Status Reason Start Date Expiration Date Visits Re quested Visits Authorized [id number] Closed 10/12/2024 01/04/2026 1 1 Reason for Visit * Reason Onset Date Comments DR. VELASQUEZ - CARDIOVERSION 10/05/2024 Encounter Details Date Type Department Care Team (Late st Contact Info) Description 10/05/[address] [facility] CARDIOLOGY [address] [facility] [address] [place] [address] Naveen Velasquez MD [address] [facility] E [address] [place] [address] DR. VELASQUEZ - CARDIOVERSION Social History Tobacco [...] Felipe Relationship: Self Best call back number: [phone] What is the best time to reach [...] PM EDT Office Visit [facility] CARDIOLOGY [address] [place] [address] Sujit Reyes MD [address] [facility] [address] E [address] [place], [place] [address] 01/19/2025 1:45 PM EST Office Visit [facility] CARDIOLOGY [address] [facility] [address] [place] [address] Naveen Velasquez MD [address] [facility] [address] [place] [address] documented as of this encounter Results * [...] fibrillation documented in this encounter Care Teams Die Maker Trim Relationship Specialty Start Date End Date Alisa uKnz DO 0 [place] [address] PCP - General Internal Medicine 04/26/21 documented as of this encounter
--- OUTSIDE RECORDS SUMMARY | 2024-10-26 13:11 | XMS_ITS | Encounter Summary ---
Author Organization [facility] Address [address] [place] [address] Care Team Providers Care Buckle Attaching Machine Operator Name Role Phone Alisa Kunz DO Primary Care Provider Kodi Bustos DO Unavailable [phone] Sujit Arriola MD Unavailable [phone] Sujit Reyes MD Unavailable [phone] Zully Caldwell MACHINE SKIVER Unavailable Unavailable Ekaterina Gómez Unavailable Unavailable Patricia Yañez MACHINE SKIVER Unavailable Unavailab Zee Lr DO Unavailable [phone] Reason for Visit * Reason Onset Date Comments HCN Clinical Concern/Question 08/09/2024 Encounter Details Date Type Department Care Team (Late st Contact Info) Description 08/09/2024 Telephone [facility] [place] [address] [facility], [address] [place] [address] Cassius Gonzales MD [address] [place] [address] HCN Clinical Concern/Question Social History [...] Recorded Patient Health Questionnaire-2 Score 0 09/08/2024 [facility] - Occupational Stress Questionnaire Answer [...] drink first t anselmo in the morning (EYE-PRINT LINE OPERATOR) to steady your nerves or to get rid of a hangover? 0 08/14/2024 CAGE Questionnaire Score 0 025 Utilities Answer Date Recorded In the past 12 months has th [employer], gas, oil, or water [employer] threatened to shut off services in your [...] needing a heart cath. Best contact number: [phone] Optimal time of day to reach caller: [...] Description 10/27/2024 1:40 PM EDT Office Visit [facility] Endocrinology [address] [place] [address] Anne-Marie Kolb, WEB ANALYTICS DEVELOPER [address] [place] [address] 12/06/2024 11:20 AM EDT Office Visit [facility] Internal Medicine [address], 3rd [place] [address] Alisa Kunz, DO [address] [place] [address] 12/23/2024 4:00 PM EDT Office Visit [facility] Medicine Specialties [address], 2nd [place] [address] Lavern Shoemaker MD [address] [place], [place] [phone] 02/02/2025 8:40 AM EST Office Visit [facility] Internal Medicine [address], 3rd [place] [address] Alisa Kunz, [address] [facility] [address] [place] [address] documented as of this encounter [...] documented as of this encounter Care Teams Buckle Attaching Machine Operator Relationship Specialty Start Date End Date Alisa Kunz DO [address] [place] [address] PCP - General Internal Medicine 03/13/21 Kodi Bustos DO [address] [phone] Surgeon Cardiothoracic Surgery 11/06/22 Sujit Arriola MD [address] [place] [address] Consulting Physician Pulmonary Disease 11/06/22 Sujit Reyes MD [address] [facility] [address] [place] [address] Referring Physician 12/04/22 Zully Caldwell LPN VALUE-[place] [place] [address] TCM Nurse 07/16/24 08/15/24 Ekaterina Gómez Research Staff Member Forensic Nurse 08/16/24 08/16/24 Patricia Yañez LPN [facility] TCM Nurse 08/25/24 10/17/24 Zee Lazar DO [address] [place] [address] Resident 09/08/24 documented as of this encounter
--- OUTSIDE RECORDS SUMMARY | 2024-10-26 13:11 | XMS_ITS | Encounter Summary ---
Author Organization Healthcare Address [address] [place] [address] Care Team Providers Care Housemaid Name Role Phone Alisa Kunz DO Primary Care Provider [phone] Kodi Bustos DO Unavailable [phone] Sujit Arriola MD Unavailable [phone] Sujit Reyes MD Unavailable [phone] Patricia Yañez LPN Unavailable Unavailab le Encounter Details Date Type Department Care Team (Late st Contact Info) Description 08/27/2024 Telephone [facility] Endocrinology [address] [place] [phone] Katerine Donaldson Social History Tobacco Use Types [...] How often do you attend chur or denominational services? 1 to 4 times per year [...] Recorded Patient Health Questionnaire-2 Score 0 08/04/2024 [facility] of Occupat ional Health [...] drink first t anselmo in the morning (EYE-OLIVE PITTER) to steady your nerves or to get rid of a hangover? 0 08/14/2024 CAGE Questionnaire Score 0 025 Utilities Answer Date Recorded In the past 12 months has th [employer], gas, oil, or water company threatened to [...] Description 10/27/2024 1:40 PM EDT Office Visit [facility] Endocrinology [address] [place] [address] Anne-Marie Kolb L, MACHINE MAINTENANCE SUPERVISOR [address] [facility] 125 [place] [address] 12/06/2024 11:20 AM EDT Office Visit [facility] Internal Medicine [address]rd [place] [address] Alisa Kunz, DO [address] [place] [address] 12/23/2024 4:00 PM EDT Office Visit [facility] Medicine Specialties [address] [place] [address] Lavern Shoemaker MD [address] [place] [address] 02/02/2025 8:40 AM EST Office Visit [facility] Internal Medicine [address], [address]rd [place] [address] Alisa Kunz DO [address] [place] [address] documented as of this encounter [...] documented as of this encounter Care Teams Housemaid Relationship Specialty Start Date End Date Alisa Kunz DO [address] [facility] [address] [place] [address] PCP - General Internal Medicine 03/13/21 Kodi Bustos DO [address] [place] [address] Surgeon Cardiothoracic Surgery 11/06/22 Sujit Arriola MD [address] [place] [address] Consulting Physician Pulmonary Disease 11/06/22 Sujit Reyes MD [address] [place] [address] Referring Physician 12/04/22 Patricia Yañez LPN [facility] TCM Nurse 08/25/24 10/17/24 documented as of this encounter
--- OUTSIDE RECORDS SUMMARY | 2024-10-26 13:11 | XMS_ITS | Encounter Summary ---
Author Organization Healthcare Address [address] [place] [address] Care Team Providers Care Animal Keeper Name Role Phone Alisa Kunz DO Primary Care Provider Kodi Bustos DO Unavailable [phone] Sujit Arriola MD Unavailable [phone] Sujit Reyes MD Unavailable [phone] Patricia Yañez LPN Unavailable Unavailab le Encounter Details Date Type Department Care Team (Late st Contact Info) Description 08/25/2024 Telephone [facility] Medicine Specialties [address] [place] [address] Noris Yee MD [address] [place] [address] Social History Tobacco Use Types [...] drink first t anselmo in the morning (EYE-ENGINEER STEAM) to steady your nerves or to get rid of a hangover? 0 08/14/2024 CAGE Questionnaire Score 0 025 Utilities Answer Date Recorded In the past 12 months has th [employer], gas, oil, or water [employer] threatened to shut off services in your [...] for 30day supply with 5 refills to [facility] pharmacy. * Progress Notes - Kayla Ceja PharmD - 08/25/2024 12:23 PM EDT Refill request does not meet protocol. Sending to clinic for review. Additional info: Dosing clarification needed documented in this encounter Plan of Treatment Upcoming Encounters Date Type Department Care Team (Late st Contact Info) Description 10/27/2024 1:40 PM EDT Office Visit [facility] Endocrinology [address] [place] [address] Anne-Marie Kolb, AIR COMMODORE [address] [place] [address] 12/06/2024 11:20 AM EDT Office Visit [facility] Internal Medicine [address] 3[address] [place] [address] Alisa Kunz, DO [address] [place] [address] 12/23/2024 4:00 PM EDT Office Visit [facility] Medicine Specialties [address] [place] [address] Lavern Shoemaker MD 800 [place] [address] 02/02/2025 8:40 AM EST Office Visit [facility] Internal Medicine [address] 3rd [place] [address] Alisa Kunz, DO [address] [facility] [address] [place] [address] documented as of this encounter Visit Diagnoses Diagnosis Systemic lupus erythematosus (SLE) in adult (CMS/HCC)- Primary documented in this encounter Additional Health Concerns Assessment Noted Time PHQ-9 Depression Total Score: 8 07/22/19 25 9:23 AM EDT A fall risk assessment has been complete d for the patient 08/04/2024 10:41 AM EDT A Body Mass Index follow-up plan has been documented for the patient 08/24/2024 2:26 PM EDT documented as of this encounter Care Teams Animal Keeper Relationship Specialty Start Date End Date Alisa Kunz DO [address] [place] [address] PCP - General Internal Medicine 03/13/21 Kodi Bustos DO [address] [address] Surgeon Cardiothoracic Surgery 11/06/22 Sujit Arriola MD [address] [place] [address] Consulting Physician Pulmonary Disease 11/06/22 Sujit Reyes MD [address] [place] [address] Referring Physician 12/04/22 Patricia Yañez LPN [facility] TCM Nurse 08/25/24 10/17/24 documented as of this encounter
--- OUTSIDE RECORDS SUMMARY | 2024-10-26 13:11 | XMS_ITS | Encounter Summary ---
Author Organization [facility] ystem Address [address] [place] [address] Care Team Providers Care Plasterer Foreman Name Role Phone Alisa Kunz Primary Care Provider [phone] Reason for Visit * Reason Comments Med Refill Encounter Details Date Type Department Care Team (Late st Contact Info) Description 10/14/2023 Refill [facility] [address] [facility] [address] [place] [address] Sujit Reyes MD [address] [facility] [address] [place] [address] Med Refill Social History Tobacco Use Types [...] Description 12/02/2024 3:30 PM EDT Office Visit [facility] CARDIOLOGY [address] [place] [address] [address] [place] [address] Sujit Reyes MD [address] [facility] [address] [place] [address] 01/19/2025 1:45 PM EST Office Visit [facility] CARDIOLOGY [address] [facility] [address] [place] [address] Naveen Velasquez MD [address] [facility] [address] [place], [place] [phone] documented as of this encounter Visit Diagnoses Not on filedocumented in this encounter Care Teams Plasterer Foreman Relationship Specialty Start Date End Date Alisa Kunz DO [address] [place], [place] [phone] PCP - General Internal Medicine 04/26/21 documented as of this encounter
--- OUTSIDE RECORDS SUMMARY | 2024-10-26 13:12 | XMS_ITS | Clinical Summary ---
Author Organization [facility] Address [address] [place] [address] Care Team Providers Care Surveillance Sensor Officer Name Role Phone Alisa Kunz DO Primary Care Provider [phone] Kodi Bustos DO Unavailable [phone] Sujit Arriola MD Unavailable [phone] Sujit Reyes MD Unavailable [phone] Zee Lazar DO Unavailable [phone] Allergies Active Allergy Reactions Criticality Noted Date [...] penIndications:T ype 1 diabetes mellitus with hyperglycemia ([facility]) Inject 2-6 units before meals plus 1:60>150. Max tdd 30 units 30 mL 2 Active insulin glargine (Toujeo SoloStar) 300 UNIT/ML injection pen (1 UNIT DIAL)Indications :Type 1 diabetes mellitus with hyperglycemia ([facility]) Inject 14 Units under the skin every morning. 4.5 mL 3 025 2025 Active Probiotic Product (acidophilus probiotic blend) capsule Take 1 capsule by mouth daily. Active mycophenolate (CellCept) 500 MG tabletIndication s:Systemic lupus erythematosus (SLE) in adult ([facility]) Take 2 tablets by mouth 2 times a day. 360 tablet 1 Active Pitavastatin Calcium (Livalo) 4 MG tabletIndication s:Type 1 diabetes mellitus with other specified complication ([facility]),Dyslip idemia Take 1 tablet by mouth daily. 90 tablet 025 Active ferrous sulfate 324 (65 Fe) MG EC tablet Take 1 tablet by mouth daily with breakfast. Do not crush, chew, or split. Active spironolactone (Aldactone) 25 MG tablet Take 0.5 tablets by mouth daily. Active Additional Information Patient taking differently:12.5 mg Oral Daily,Taking 1/4th tablet d/t feeling dizzy when she takes it, Reported on 10/14/2024 hydroxychloroqui ne (Plaquenil) 200 MG tabletIndication s:Systemic lupus erythematosus (SLE) in adult ([facility]) Take 1.5 tablets by mouth [...] 2 TIMES A DAY 60 capsule 2 025 Active sucralfate (Carafate) 1 GM/10ML suspension Take 10 mL by mouth 4 times a day. 473 mL 11 Active furosemide (Lasix) 80 MG tablet Take 1 tablet by mouth daily. 30 tablet 2 Active lisinopril 20 MG tabletIndication s:Essential hypertension [...] mouth daily. 2024 Discontinued(P er Patient Report) furosemide (Lasix) 80 MG tablet Take 1 tablet by mouth daily. 30 tablet 025 2024 Discontinued(R eorder) enoxaparin (Lovenox) 100 MG/ML solution prefilled syringe Inject 0.9 mL under the skin every evening. 5 mL 1 025 2024 Discontinued(P er Patient Report) magic mouthwash (lidocaine, diphenhydramine, Maalox 1:1:1) Swish [...] been switched to warfarin. Follows with the [facility] [place] anti-coagulation clinic closely. Coronary atherosclerosis of artery [...] From the hospital she was sent to [facility] for rehab. - Slowly improving, now able [...] From the hospital she was sent to [facility] for rehab. - Slowly improving, now able [...] From the hospital she was sent to [facility] for rehab. - Slowly improving: still remains [...] baclofen to help with muscle spasms/sleep at [facility]: switched to Robaxin 500 mg nightly PRN [...] From the hospital she was sent to [facility] for rehab. - Slowly improving: still remains [...] baclofen to help with muscle spasms/sleep at [facility]: switched to Robaxin 500 mg nightly PRN. [...] From the hospital she was sent to [facility] for rehab. - Encouraged patient to contact surgeon (Dr. Ortiz) to discuss next steps and to discuss prognosis. Diastolic dysfunction 07/17/2021 Overview (01/05/2024): - Echocardiogram 11/27/2023: LVEF 55-60% with grade II diastolic dysfunction. Assessment & Plan (08/12/2023 2:51 PM EDT): HFpEF (EF 55-60% in 08/2022) CAD/ND s/p Stent + CABG (1999) CVA (2017) [...] 12/05/2020, 01/28/2022, 01/09/2023 Influenza, seasonal, injectable 12/08/2018 [employer] COVID-19 Vaccine (Purple Cap) 12+ 03/30/2020, 03/30/2020, [...] 12/2023. Colon cancer: Last colonoscopy 10/17/2020 at [facility] [place] (Dr. Sujit Christine), personally visualized records: one [...] 12/05/2020, 01/28/2022, 01/09/2023 Influenza, seasonal, injectable 12/08/2018 [employer] COVID-19 Vaccine (Purple Cap) 12+ 03/30/2020, 03/30/2020, [...] ? Colon cancer: Last colonoscopy 10/17/2020 at [facility] [place] (Dr. Sujit Christine), personally visualized records: one [...] reasons: ? The patient has a prior ND or stroke diagnosis A1c: Lab Results Component [...] 12/05/2020, 12/05/2020, 01/28/2022 Influenza, seasonal, injectable 12/08/2018 [employer] COVID-19 Vaccine (Purple Cap) 12+ 03/30/2020, 03/30/2020, [...] ? Colon cancer: Last colonoscopy 10/17/2020 at [facility] [place] (Dr. Sujit Christine), personally visualized records: one [...] instructions given Referrals Made Today: None [employer] Provided: N/A Personal Prevention [...] - Was switched to Trelegy inhaler at [facility], refilled today 07/2021. Continues on O2 at [...] called at 15:49, Spoke to Charge Keanu Didi -patient has friend who will drive her [...] as she is high risk for recurrent ND/stroke. Also on Zetia. Assessment & Plan (10/10/2021 [...] as she is high risk for recurrent ND/stroke. - Repeat lipid panel ordered 03/2021 (to [...] Paroxysmal atrial fibrillation 08/08/2017 Overview (04/16/2024): - [id number] of 6. - s/p PPM - Rate control: metoprolol ER 50 mg daily - Anticoagulation: warfarin - Follows with [facility] cardiology. Hypertension 12/26/2016 Overview (12/26/2022): [...] patient to discuss insulin adjustments while at [facility]. Assessment & Plan (04/09/2021 4:01 PM EST): [...] bg control Atherosclerotic heart diseas e of [place] coronary artery without angina pectoris 05/05/2012 Overview (04/16/2024): - s/p CABG in 1999. NSTEMI s/p balloon angioplasty 05/2020 at [facility]. Follows with outside cylinder steamer. Assessment & Plan (11/24/2020 8:49 AM EDT): [...] been having telephone conversations with cardiology at [facility] and is currently taking 20mg lasix and 2.5mg of norvasc -ISTAT sodium level 135 -Patient is going to make an appointment with cardiology within a month to follow up for labs and assess if there is a need for fluid restriction -Patient aware of all upcoming appointments Cornlevar and callosities 05/16/20222022 Red eye 05/13/2022 12/26/2022 Overview (05/13/2022): - Concerning for bacterial or viral conjunctivitis vs. Scleritis. - Needs THOMPSON eye exam. - Was able to get patient in with [facility] ophthalmology right after our clinic appointment (where she follows regularly). - In the meantime, provided erythromycin eye ointment for bacterial conjunctivitis treatment. Assessment & Plan (05/13/2022 3:58 PM EST): - Concerning for bacterial or viral conjunctivitis vs. Scleritis. - Needs THOMPSON eye exam. - Was able to get patient in with [facility] ophthalmology right after our clinic appointment [...] bowel regimen. - Last colonoscopy performed at [facility] [place] in Oct 2020 and unremarkable. Assessment & Plan (02/06/2022 2:48 PM EST): - Based on description more consistent with constipation. Some improvement with bowel regimen. - Last colonoscopy performed at [facility] [place] in Oct 2020 and unremarkable. Anal fissure [...] Date Type Department Care Team Description 10/18/2024 [facility] Internal Medicine [address] [place] [address] Alisa Kunz, DO 10/18/2024 Telephone [facility] Internal Medicine [address], [address] [place] [address] Alisa Kunz, DO 10/18/2024 Travel 10/14/2024 12:09 PM EDT - 10/14/2024 11:59 PM EDT Hospital Encounter [facility] [address], 1st [place] [address] Recurrent pleural effusion on left Discharge Disposition: Home or Self Care 10/14/2024 11:00 AM EDT Office Visit [facility] Specialties [address], [address] [place] [address] Cristian Zimmer MD Recurrent pleural effusion on left (Primary Dx); Chronic hypoxic respiratory failure; Obstructive lung disease ([facility]); Systemic lupus erythematosus (SLE) in adult ([facility]) 10/14/2024 Results Follow[facility]Up [facility] [address], [address] [place] [address] Cristian Zimmer MD 10/14/2024 Travel 10/11/2024 Telephone [facility] Otolaryng[facility] [address], [address] [place] [address] Chris Pepe MD HCN - Patient Message (questions) 10/07/2024 12:50 PM EDT Office Visit [facility] Otolaryng[facility] [address], [address] [place] [address] Chris Pepe MD Recurrent aphthous ulcer (Primary Dx); Systemic lupus erythematosus, unspecified SLE type, unspecified organ involvement status ([facility]) 10/07/2024 Travel 10/[facility] [address], [address] [place] [address] Alisa Kunz, DO 10/02/2024 Travel 09/28/2024 Telephone [facility] Internal Medicine [address] [place] [address] Alisa Kunz, DO HCN Lab/home Health 09/28/2024 Telephone [facility] Diabetes Education [address] [place] [address] Anne-Marie Kolb, REAL ESTATE REP 09/28/2024 Results Follow-Up [facility] [address] [place] [address] Ashley Dinah R, REAL ESTATE REP 09/27/2024 1:20 PM EDT Office Visit [facility] [address] [place] [address] Ashley Dinah R, REAL ESTATE REP Pleural effusion (Primary Dx); Longstanding persistent atrial fibrillation (CMS/HCC); Dizziness and giddiness; Health care maintenance 09/27/2024 Travel 09/23/2024 Telephone [facility] Internal Medicine [address] [place] [address] Alisa Kunz, DO HCN - Patient Message 09/22/2024 Patient Outreach [facility] [address] [place] [address] [address], [address] [place] [address] Patricia Yañez LPN Follow-up 09/20/2024 Telephone [facility] Endocrinology [address] [place] [address] Anne-Marie Kolb, REAL ESTATE REP 09/17/2024 Orders Only [facility] Internal Medicine [address] [place] [address] Alisa Kunz, DO 09/17/2024 Patient Outreach [facility] [address] [facility] [address] [place] [address] Patricia Yañez LPN TCM Call 09/16/2024 Telephone [facility] Medicine [address] [place] [address] Alisa Kunz, DO 09/16/2024 Telephone [facility] Medicine [address], [address] [place] [address] Alisa Kunz DO HCN Clinical Concern/Question (Low heartrate) 09/16/2024 Telephone [facility]ties [address], [address] [place] [address] Charo Donaldson 09/16/2024 Telephone [facility] Endocrinology [address] [place] [address] Anne-Marie Kolb, YAMILET Med Refill 09/15/2024 Travel 09/14/2024 Travel 09/13/2024 Travel 09/11/2024 Travel 09/09/2024 Travel 09/09/2024 Telephone [facility] [address] [place] [address] Shannen Emmanuel RN 09/09/2024 Telephone [facility] [address] [place] [address] Charo Donaldson 09/09/2024 Results Follow-Up [facility] Internal Medicine [address], [address] [place] [address] Zee Lazar DO 09/08/2024 1:55 PM EDT - 09/08/2024 11:59 PM EDT Hospital Encounter [facility] [address] [place] [address] Localized swelling, mass and lump, left upper limb Discharge Disposition: Home or Self Care 09/08/2024 1:36 PM EDT - 09/08/2024 1:54 PM EDT Hospital Encounter [facility] [address], [address] [place] [address] Shortness of breath Discharge Disposition: Home or Self Care 09/08/2024 11:20 AM EDT Office Visit [facility] Medicine [address] [place] [address] Alisa Kunz, Shortness of breath (Primary Dx); Restless leg syndrome; Localized swelling, mass and lump, left upper limb; Sore throat; Encounter for removal of sutures 09/08/2024 Orders Only [facility]ties [address] [place] [address] Lavern Shoemaker MD Pleural effusion on right (Primary Dx) 09/08/2024 Telephone [facility] Medicine [address], [address] [place] [address] Alisa Kunz, HCN - Patient Message 09/08/2024 Travel 09/07/2024 Telephone [facility] [address], [address] [place] [address] Sadiq Osborne MBBS 09/07/2024 Telephone [facility] [address], [address] [place] [address] Charo Donaldson 09/06/2024 Telephone [facility] Medicine [address], [address]rd [place] [address] Alisa Kunz, 09/06/2024 Telephone [facility] [address], [address] [place] [address] Charo Donaldson 09/06/2024 Refill [facility] Endocrinology [address] [place] [address] Anne-Marie Kolb, REAL ESTATE REP Type 1 diabetes mellitus with other specified complication ([facility]); Dyslipidemia 09/06/2024 Refill [facility] Endocrinology [address] [place] [address] Anne-Marie Kolb, REAL ESTATE REP Type 1 diabetes mellitus with other specified complication (CMS/HCC); Dyslipidemia 09/03/2024 Telephone [facility] Medicine [address] [place] [address] Alisa Kunz, DO HCN Clinical Concern/Question (Please see note...) 09/03/2024 Telephone [facility] Endocrinology [address] [place] [address] Anne-Marie Kolb, REAL ESTATE REP 09/02/2024 Telephone [facility] Medicine [address] [place] [address] Alisa Kunz, DO 09/02/2024 Telephone [facility] Endocrinology [address] [place] [address] Anne-Marie Kolb, REAL ESTATE REP 08/31/2024 Orders Only [facility] Medicine [address] [place] [address] Alisa Kunz, At high risk for falls (Primary Dx); Type 2 diabetes mellitus without complication, with long-term current use of insulin; Compression fracture of T12 vertebra with routine healing, subsequent encounter; Osteoarthritis, unspecified osteoarthritis type, unspecified site; Pleural effusion 08/30/2024 Telephone [facility] Medicine [address] [place] [address] Alisa Kunz, HCN Clinical Concern/Question 08/30/2024 Telephone [facility] Medicine [address] [facility] [address] [place] [address] Alisa Kunz, DO HCN Clinical Concern/Question 08/27/2024 Telephone [facility] Endocrinology [address] [place] [address] Katerine Donaldson 08/27/2024 Refill [facility] Specialties [address] [place] [address] Ruthie Moy MD Systemic lupus erythematosus (SLE) in adult ([facility]) 08/27/2024 Telephone [facility]ties [address] [place] [address] Sarah Hernadez RN 08/25/2024 Patient Outreach [facility] [address] [facility] [address] [place] [address] Patricia Yañez LPN TCM Call 08/25/2024 Telephone [facility] Internal Medicine [address], [address] [place] [address] Alisa Kunz DO HCN Clinical Concern/Question 08/25/2024 Telephone [facility] [address], [address]nd [place] [address] Noris Yee MD 08/25/2024 Refill [facility] [address], [address]nd [place] [address] Noris Yee MD Systemic lupus erythematosus (SLE) in adult ([facility]) 08/23/2024 Travel 08/22/2024 Travel 08/21/2024 Travel 08/20/2024 Travel 08/19/2024 Travel 08/18/2024 12:57 PM EDT - 08/18/2024 1:42 PM EDT Surgery Cardiac Supervisor Receiving [facility] Processing [address] [place] [address] Brenden Zamora MD Right heart catheterization 08/18/2024 Travel 08/17/2024 Travel 08/16/2024 Patient Outreach [facility] [address] [facility] [address], [address] [place] [address] Ekaterina Gómez 08/15/2024 Travel 08/15/2024 Refill [facility] Medicine [address] [place] [address] Alisa Kunz DO 08/14/2024 3:16 PM EDT - 08/24/2024 3:19 PM EDT Hospital Encounter [facility] [address] [place] [address] aJckson Puente MD Arndt, Frederick, MD Romond, John B, MD Chadha, Jagriti, MD Pleural effusion (Primary Dx); Acute on chronic congestive heart failure, unspecified heart failure type ([facility]); Shortness of breath; Systemic lupus erythematosus (SLE) in adult ([facility]) Discharge Disposition: Home or Self Care 08/14/2024 Travel 08/12/2024 Telephone [facility] Internal Medicine [address], [address]rd [place] [address] Alisa Kunz, DO HCN Clinical Concern/Question 08/11/2024 Telephone [facility] Internal Medicine [address], [address]rd [place] [address] Alisa Kunz, DO HCN Clinical Concern/Question 08/09/2024 Telephone [facility] Vascular [place] [address] [address] [facility], [address] [place] [address] Cassius Gonzales MD HCN Clinical Concern/Question 08/06/2024 Telephone [facility] [address] [place] [address] Ami Marley Edema; Shortness of Breath 08/06/2024 Telephone [facility] Endocrinology [address] [place] [address] Anne-Marie Kolb, REAL ESTATE REP 08/06/2024 Telephone [facility] Medicine [address], [address] [place] [address] Alisa Kunz, DO HCN Clinical Concern/Question 08/06/2024 Telephone [facility] Medicine [address] [place] [address] Alisa Kunz L, DO HCN Clinical Concern/Question 08/04/2024 2:20 PM EDT Office Visit [facility] Endocrinology [address] [place] [address] Anne-Marie Kolb, REAL ESTATE REP Type 1 diabetes mellitus with hyperglycemia ([facility]) (Primary Dx); Neuropathy; Hyperlipidemia, unspecified hyperlipidemia type 08/04/2024 10:45 AM EDT Office Visit [facility] [place] [address] [facility], [address] [place] [address] Cassius Gonzales MD Heart failure with preserved ejection fraction, unspecified HF chronicity (CMS/HCC) (Primary Dx); Atrial fibrillation, unspecified type (CMS/HCC); Chronic hypoxic respiratory failure; Presence of cardiac pacemaker; Heart failure, unspecified HF chronicity, unspecified heart failure type (CMS/HCC); Pulmonary hypertension (CMS/HCC) 08/04/2024 Travel 07/30/2024 4:20 PM EDT Office Visit [facility] [address] [place] [address] Andra Herman MD Dysphonia (Primary Dx) 07/30/2024 Travel 07/30/2024 Telephone [facility] [address] [place] [address] Jarad Tsai Appointment 07/28/2024 Telephone [facility] [address] [place] [address] Ami Marley A Results 07/28/2024 Patient Outreach [facility] [address] [place] [address] Zully Caldwell LPN Follow-up from Last 3 Months Immunizations Immunization Administration Dates Next Due Hep A, Adult 01/24/2019, 9,01/24/2019,01/23,01/23/2019,06/11/2018,06/11/2018 ,06/11/2018 Influenza, High-dose, Split Virus, Trivalent, Injectable, preservative free 11/27/2023,01/18/2019,12/19/2017 Influenza, Unspecified 12/09/2019 Influenza, high-dose, quadrivalent 01/09,01/28/2022,12/05/2020,12/05,12/05/2020,01/18/2019,01/18/2019 ,01/18/2019,01/18/2019,12/19/2017,12/08,12/19/2017 Influenza, seasonal, injectable 12/08/2018 [employer] COVID-19 Vac cine (Purple Cap) 12+ 04/22/2020,04/22/2020,03/30/2020,03/30 Pneumococcal Conjugate PCV 13 08/06/2019 ,08/06/2019,08/06/2019,07/02,07/02/2016,07/02/2016 Pneumococcal Polysaccharide PPV23 2019,06/11/2018,06/11/2018,06/11 Zoster, Recombinant 01/24/2019, 9,01/24/2019,01/23,01/23/2019,06/11/2018,06/11/2018 ,06/11/2018 Family History Medical History Relation Name Comments Alcohol abuse Father Doron Henriquezer Arthritis Father Doron Henriquezer COPD Father Doron Arriaza Alfredito Hypercholesterolemia Father Doron Arriaza Alfredito Obesity Father Doron Antunez Alpha-1 antitrypsin deficiency Mother m ildred stamper alfredito kelin COPD Mother gracy stamper alfredito kelin Conversions - Other Mother gracy stam per alfredito kelin Goiter (Diffuse Nontoxic) Heart disease Mother gracy stamper alfredito kelin Hypertension Mother gracy stamper alfredito kelin Stroke Mother gracy stamper alfredito kelin Cancer Other 1 Doron E Strandquist Conversions - Other Other 2 Goiter ( Diffuse Nontoxic) Heart disease Other 3 Gracy Marry Stamper Alfredito Kelin Diabetes Sibling Relation Name Status Comments Father Doron Arriaza Alfredito Mother gracy stamper alfredito kelin Other 1 Doron E Alfredito Other 2 Other 3 Gracy Marry Stamper Alfredito Kelin Sibling Social History Tobacco Use Types [...] Recorded Patient Health Questionnaire-2 Score 0 09/08/2024 [facility] ional [...] drink first t anselmo in the morning (EYE-TRAUMA THERAPIST) to steady your nerves or to get rid of a hangover? 0 08/14/2024 CAGE Questionnaire Score 0 025 Utilities Answer Date Recorded In the past 12 months has th [employer], gas, oil, or water company threatened to [...] Description 10/27/2024 1:40 PM EDT Office Visit [facility] Endocrinology [address] [place] [address] Anne-Marie Kolb L, REAL ESTATE REP [address] [place] [address] 12/06/2024 11:20 AM EDT Office Visit [facility] Internal Medicine [address] [place] [address] ZeAlisa willett L, DO [address] [place] [address] 12/23/2024 4:00 PM EDT Office Visit [facility] Special[facility] [address] [place] [address] Lavern Shoemaker MD [address] [place], [place] [id number] 02/02/2025 8:40 AM EST Office Visit [facility] Internal Medicine [address], [address] [place] [address] Ze Alisa L, DO [address] [place] [address] Health Maintenance Due Date Last Done Comments [facility]-/Child/Adol SDOH Screenings 1950 Diabetes: Dental Exam 1961 [facility]-DTaP,Tdap,and Td Vaccines (1 - Tdap) 1970 CT Colonography 02/09/1996 Colonoscopy 02/09/1996 FIT-DNA 02/09/1996 FIT 02/09/1996 FOBT 02/09/1996 Sigmoidoscopy 02/09/1996 [facility]-RSV Vaccine: 60+ Years or (1 - Risk 60-74 years 1-dose series) 2011 [id number] Vaccine ( season) 2023 04/22/2020, 04/22/2020, 03/30/2020, [...] this topic Medical Devices Implanted Type Area Senior Medical Technologist Device Identifier Shelf Expiration Date Model / Serial / Lot Tendril Lead- 9 Implanted: by Naveen Velasquez (Quantity not on file) [facility] TENDRIL STS 8TC/46 / [id number] / Tendril Lead- 9 Implanted: by Naveen Velasquez (Quantity not on file) [facility] TENDRIL STS 2087TC/52 / [id number] / Blank Pacemaker-08/08 Implanted: by Naveen Velasquez (Quantity not on file) [facility] MRI 2272 / [id number] / Procedures Procedure Name Priority Date/Time Associated [...] Routine 09/11/2024 1:22 PM EDT Pleural effusion NV THORACENTESIS NEEDLE/CATH PLEURA W/IMAGING Routine 09/11/2024 1:22 [...] ECG ADULT STAT 08/14/2024 2:31 PM EDT HEPATITIS C ANTIBODY - ED W/REFLEX TO HCV QUANT PCR STAT 01/29/2024 3:32 PM EST DEXA BONE DENSITY Routine 01/10/2023 10:23 AM EDT Osteopenia, unspecified location MAMMOGRAPHY BREAST SCREENING TOMOSYNTHESIS BILATERAL Routine 11/09/2021 4:12 PM EDT Healthcare maintenance from Last 3 Months or Most Recently Relevant to Health Maintenance Results * XR Chest 2 Views (10/14/2024 12:19 PM EDT) Only the most recent of3 [...] 2:29 PM EDT) Only the most recent of18 resultswithin the time period is included. Prothrombin Time 19.5(H) 12.0 - 14.3 sec LAB COAGULATION METHOD 09/27/2024 5:42 PM EDT [facility] INR 1.6(H) 0.9 - 1.1 LAB COAGULATION METHOD 09/27/2024 5:42 PM EDT [facility] Blood Venous blood specimen / Unknown Venipuncture / Unknown 09/27/2024 2:29 PM EDT 09/27/2024 2:29 PM EDT Narrative [facility] - 09/27/2024 5:42 PM EDT OPTIMAL INR RANGES FOR PATIENT ON ORAL ANTICOAGULANT THERAPY Prevention of venous thromboembolism INR 2.0 to 3.0 In patients with heart disease: Atrial fibrillation INR 2.0 to 3.0 Valvular heart disease INR 2.0 to 3.0 Tissue heart valves INR 2.0 to 3.0 Mechanical prosthetic valves INR 2.5 to 3.5 Prevention of recurrent ND INR 2.5 to 3.5 June Ashley REAL ESTATE REP LAB BLOOD ORDERABLES Final Result [facility] [address] [place] [address] * (ABNORMAL) CBC and differential (09/27/2024 2:29 PM EDT) Only the most recent of4 resultswithin the time period is included. WBC Count 7.40 3.70 - 10.30 10*3/uL LAB HEMATOLOGY METHOD 09/27/2024 6:24 PM EDT [facility] RBC Count 3.48(L) 3.90 - 5.20 10*6/uL LAB HEMATOLOGY METHOD 09/27/2024 6:24 PM EDT [facility] HGB 10.5(L) 11.2 - 15.7 g/dL LAB HEMATOLOGY METHOD 09/27/2024 6:24 PM EDT [facility] HCT 34.1 34.0 - 45.0 % LAB HEMATOLOGY METHOD 09/27/2024 6:24 PM EDT [facility] Platelet Count 473(H) 155 - 369 10*3/uL LAB HEMATOLOGY METHOD 09/27/2024 6:24 PM EDT [facility] MCV 98 79 - 98 fL LAB HEMATOLOGY METHOD 09/27/2024 6:24 PM EDT [facility] MCH 30.2 26.0 - 32.0 pg LAB HEMATOLOGY METHOD 09/27/2024 6:24 PM EDT [facility] MCHC 30.8 30.7 - 35.5 g/dL LAB HEMATOLOGY METHOD 09/27/2024 6:24 PM EDT [facility] RDW 16.6(H) 11.5 - 14.5 % LAB HEMATOLOGY METHOD 09/27/2024 6:24 PM EDT [facility] MPV 9.8 8.8 - 12.5 fL LAB HEMATOLOGY METHOD 09/27/2024 6:24 PM EDT [facility] nRBC 0.0 <=0.0 per 100 WBCs LAB HEMATOLOGY METHOD 09/27/2024 6:24 PM EDT [facility] Differential Type Automated LAB HEMATOLOGY METHOD 09/27/2024 6:24 PM EDT [facility] Neutrophils % 72 % LAB HEMATOLOGY METHOD 09/27/2024 6:24 PM EDT [facility] Lymphocytes % 14 % LAB HEMATOLOGY METHOD 09/27/2024 6:24 PM EDT [facility] Monocytes % 11 % LAB HEMATOLOGY METHOD 09/27/2024 6:24 PM EDT [facility] Eosinophils % 1 % LAB HEMATOLOGY METHOD 09/27/2024 6:24 PM EDT [facility] Basophils % 1 % LAB HEMATOLOGY METHOD 09/27/2024 6:24 PM EDT [facility] Immature Granulocytes % 1 % LAB HEMATOLOGY METHOD 09/27/2024 6:24 PM EDT [facility] Neutrophils Absolute 5.39 1.60 - 6.10 10*3/uL LAB HEMATOLOGY METHOD 09/27/2024 6:24 PM EDT [facility] Lymphocytes Absolute 1.04(L) 1.20 - 3.90 10*3/uL LAB HEMATOLOGY METHOD 09/27/2024 6:24 PM EDT [facility] Monocytes Absolute 0.80 0.30 - 0.90 10*3/uL LAB HEMATOLOGY METHOD 09/27/2024 6:24 PM EDT [facility] Eosinophils Absolute 0.06 0.00 - 0.50 10*3/uL LAB HEMATOLOGY METHOD 09/27/2024 6:24 PM EDT [facility] Basophils Absolute 0.06 0.00 - 0.10 10*3/uL LAB HEMATOLOGY METHOD 09/27/2024 6:24 PM EDT [facility] Immature Granulocytes Absolute 0.05 0.00 - 0.06 10*3/uL LAB HEMATOLOGY METHOD 09/27/2024 6:24 PM EDT [facility] Blood Venous blood specimen / Unknown Venipuncture / Unknown 09/27/2024 2:29 PM EDT 09/27/2024 2:29 PM EDT Narrative [facility] - 09/27/2024 6:24 PM EDT Therapeutic decision making should be based on absolute values, rather than percentages. us Fili Hutson MD LAB BLOOD ORDERABLES Final Result [facility] [address] [place] [address] * (ABNORMAL) Comprehensive metabolic panel (09/27/2024 2:29 PM EDT) Only the most recent of6 resultswithin the time period is included. Glucose, Plasma 191(H) 74 - 99 mg/dL 09/27/2024 5:45 PM EDT [facility] BUN, Plasma 23 8 - 23 mg/dL 09/27/2024 5:45 PM EDT [facility] Creatinine, Plasma 1.00 0.60 - 1.10 mg/dL 09/27/2024 5:45 PM EDT [facility] BUN/Creatinine Ratio 23 09/27/2024 5:45 PM EDT [facility] Sodium, Plasma 129(L) 136 - 145 mmol/L 09/27/2024 5:45 PM EDT [facility] Potassium, Plasma 4.2 3.6 - 4.9 mmol/L 09/27/2024 5:45 PM EDT [facility] Chloride, Plasma 88(L) 97 - 107 mmol/L 09/27/2024 5:45 PM EDT [facility] CO2, Plasma 31(H) 22 - 29 mmol/L 09/27/2024 5:45 PM EDT [facility] Anion Gap 10 6 - 16 mmol/L 09/27/2024 5:45 PM EDT [facility] Total Calcium, Plasma 9.0 8.9 - 10.2 mg/dL 09/27/2024 5:45 PM EDT [facility] Total Protein 7.3 6.3 - 7.9 g/dL 09/27/2024 5:45 PM EDT [facility] Albumin, Plasma 3.5 3.5 - 5.2 g/dL 09/27/2024 5:45 PM EDT [facility] AST, Plasma 39(H) 10 - 35 U/L 09/27/2024 5:45 PM EDT [facility] ALT, Plasma 26 10 - 35 U/L 09/27/2024 5:45 PM EDT [facility] Alkaline Phosphatase, Plasma 128 46 - 142 U/L 09/27/2024 5:45 PM EDT [facility] Total Bilirubin, Plasma 0.4 0.2 - 1.1 mg/dL 09/27/2024 5:45 PM EDT [facility] eGFRcr 59.6 mL/min/1.7 3m*2 09/27/2024 5:45 PM EDT [facility] Comment:Reported eGFRcr in m L/min/1.73m2 is based the CKD-EPI 2020 equation that does not use a race coefficient. Blood Venous blood specimen / Unknown Venipuncture / Unknown 09/27/2024 2:29 PM EDT 09/27/2024 2:29 PM EDT Fili Hutson MD LAB BLOOD ORDERABLES Final Result [facility] [address] [place] [address] * (ABNORMAL) POCT glucose meter (09/15/2024 12:18 PM EDT) Only the most recent of91 resultswithin the time period is included. POCT Glucose 324(H) 74 - 99 mg/dL 09/15/2024 12:21 PM EDT [facility] Comment:Accuracy of a glucos e result [...] for testing. Comment 09/15/2024 12:21 PM EDT [facility] Radial Arm Saw Operator ID Renetta Junior 09/15/2024 12:21 PM EDT [facility] Device ID [id number] 09/15/2024 12:21 PM EDT [facility] Specimen Type POC Capillary 09/15/2024 12:21 PM EDT [facility] Blood Capillary blood specimen / Unknown 09/15/2024 12:18 PM EDT 09/15/2024 12:21 PM EDT Alex Mg MD LAB POINT OF CARE TE ST DOCKED DEVICE UNSOLICITED RESULTS Final Result [facility] [address] [place] [address] * (ABNORMAL) MOON Single Pattern (Reflex only) (09/15/2024 9:21 AM EDT) MOON Pattern Homogeneou s(A) 09/20/2024 10:53 PM EDT [facility] ([employer]) MOON Titer 1:160(A) 09/20/2024 10:53 PM EDT [facility] ([employer]) Blood Venous blood specimen / Unknown Venipuncture / Unknown 09/15/2024 9:21 AM EDT 09/15/2024 9:39 AM EDT Narrative [facility] ([employer]) - 09/20/2024 10:53 PM EDT Performed By: [facility] [address] [place] [address] Coffee Host: Austin Bernal MD, PhD CLIA Number: [id number] Fernando Valenzuela MD LAB BLOOD ORDERABLES Final Resu lt [facility] ([employer]) [address] [place] [id number] * (ABNORMAL) CBC W/O Differential (09/15/2024 9:21 AM EDT) Only the most recent of6 resultswithin the time period is included. WBC Count 5.81 3.70 - 10.30 10*3/uL LAB HEMATOLOGY METHOD 09/15/2024 9:42 AM EDT [facility] RBC Count 3.68(L) 3.90 - 5.20 10*6/uL LAB HEMATOLOGY METHOD 09/15/2024 9:42 AM EDT [facility] HGB 10.8(L) 11.2 - 15.7 g/dL LAB HEMATOLOGY METHOD 09/15/2024 9:42 AM EDT [facility] HCT 34.3 34.0 - 45.0 % LAB HEMATOLOGY METHOD 09/15/2024 9:42 AM EDT [facility] Platelet Count 334 155 - 369 10*3/uL LAB HEMATOLOGY METHOD 09/15/2024 9:42 AM EDT [facility] MCV 93 79 - 98 fL LAB HEMATOLOGY METHOD 09/15/2024 9:42 AM EDT [facility] MCH 29.3 26.0 - 32.0 pg LAB HEMATOLOGY METHOD 09/15/2024 9:42 AM EDT [facility] MCHC 31.5 30.7 - 35.5 g/dL LAB HEMATOLOGY METHOD 09/15/2024 9:42 AM EDT [facility] RDW 15.2(H) 11.5 - 14.5 % LAB HEMATOLOGY METHOD 09/15/2024 9:42 AM EDT [facility] MPV 9.0 8.8 - 12.5 fL LAB HEMATOLOGY METHOD 09/15/2024 9:42 AM EDT [facility] nRBC 0.0 <=0.0 per 100 WBCs LAB HEMATOLOGY METHOD 09/15/2024 9:42 AM EDT [facility] Blood Venous blood specimen / Unknown Venipuncture / Unknown 09/15/2024 9:21 AM EDT 09/15/2024 9:39 AM EDT us Alex Mg MD LAB BLOOD ORDERABLES Final R esult [facility] [address] [place] [id number] * (ABNORMAL) Antinuclear Antibody (MOON) with HEp-2 Substrate, IgG by IFA (09/15/2024 9:21 AM EDT) MOON INTERPRETIVE COMMENT See Note 09/20/2024 10:53 PM EDT [facility] ([employer]) Anti Nuc Ab Screen Detected( H) <1:80 09/20/2024 10:53 PM EDT [facility] ([employer]) Blood Venous blood specimen / Unknown Venipuncture / Unknown 09/15/2024 9:21 AM EDT 09/15/2024 9:39 AM EDT Narrative [facility]) - 09/20/2024 10:53 PM [...] not necessarily rule out SARD. Performed By: [facility] [address] [place] [address] Coffee Host: Austin Bernal MD, PhD CLIA Number: [id number] us Fernando Valenzuela MD LAB BLOOD ORDERABLES Final Resu lt [facility] ([facility]) [address] [place] [address] * (ABNORMAL) Magnesium, Plasma (09/15/2024 9:21 AM EDT) Only the most recent of12 resultswithin the time period is included. Magnesium, Plasma 1.7(L) 1.9 - 2.4 mg/dL 09/15/2024 10:03 AM EDT [facility] Blood Venous blood specimen / Unknown Venipuncture / Unknown 09/15/2024 9:21 AM EDT 09/15/2024 9:39 AM EDT Fernando Valenzuela MD LAB BLOOD ORDERABLES Final Resu lt Performing Organization Address [facility] Co de Phone Number [facility] [address] [place] [address] * (ABNORMAL) Lactate dehydrogenase (09/15/2024 9:21 AM EDT) Only the most recent of2 resultswithin the time period is included. LDH, Plasma 396(H) 116 - 250 U/L 09/15/2024 10:03 AM EDT [facility] Blood Venous blood specimen / Unknown Venipuncture / Unknown 09/15/2024 9:21 AM EDT 09/15/2024 9:39 AM EDT Alex Mg MD LAB BLOOD ORDERABLES Final R esult Performing Organization Address City/[facility] Co de Phone Number [facility] [address] [place] [address] * (ABNORMAL) Basic Metabolic Panel, Plasma (09/15/2024 9:21 AM EDT) Only the most recent of15 resultswithin the time period is included. Glucose, Plasma 206(H) 74 - 99 mg/dL 09/15/2024 10:03 AM EDT [facility] BUN, Plasma 16 8 - 23 mg/dL 09/15/2024 10:03 AM EDT [facility] Creatinine, Plasma 0.89 0.60 - 1.10 mg/dL 09/15/2024 10:03 AM EDT [facility] BUN/Creatinine Ratio 18 09/15/2024 10:03 AM EDT [facility] Sodium, Plasma 129(L) 136 - 145 mmol/L 09/15/2024 10:03 AM EDT [facility] Potassium, Plasma 4.4 3.6 - 4.9 mmol/L 09/15/2024 10:03 AM EDT [facility] Chloride, Plasma 90(L) 97 - 107 mmol/L 09/15/2024 10:03 AM EDT [facility] CO2, Plasma 29 22 - 29 mmol/L 09/15/2024 10:03 AM EDT [facility] Anion Gap 10 6 - 16 mmol/L 09/15/2024 10:03 AM EDT [facility] Total Calcium, Plasma 8.6(L) 8.9 - 10.2 mg/dL 09/15/2024 10:03 AM EDT [facility] eGFRcr 68.6 mL/min/1.7 3m*2 09/15/2024 10:03 AM EDT [facility] Comment:Reported eGFRcr in m L/min/1.73m2 is based the CKD-EPI 2020 equation that does not use a race coefficient. Blood Venous blood specimen / Unknown Venipuncture / Unknown 09/15/2024 9:21 AM EDT 09/15/2024 9:39 AM EDT us Fernando Valenzuela MD LAB BLOOD ORDERABLES Final Resu lt [facility] [address] [place] [address] * MR Hand Left w and wo [...] multiecho sequences were obtained utilizing T1 and [id number] with and without the administration of intravenous [...] 9:29 PM EDT) Only the most recent of2 resultswithin the time period is included. Sedimentation Rate 49(H) <30 mm/hr 2024 9:47 PM EDT [facility] Blood Venous blood specimen / Unknown Venipuncture / Unknown 09/13/2024 9:29 PM EDT 09/13/2024 9:32 PM EDT us Pallavi Paul DO LAB BLOOD ORDERABLES Final Resu lt [facility] [address] [place] [address] * ECHO, ADULT TRANSTHORACIC LIMITED W/ CONTRAST [...] 10:00 AM EDT) Only the most recent of2 resultswithin the time period is included. CRP, Plasma 26.0(H) <=8.0 mg/L 09/13/2024 11:21 AM EDT [facility] Blood Venous blood specimen / Unknown Venipuncture / Unknown 09/13/2024 10:00 AM EDT 09/13/2024 10:25 AM EDT Narrative [facility] - 09/13/2024 11:21 AM EDT This CRP test is appropriate for assessment of infection, systemic inflammation and/or tissue injury. To assess cardiovascular disease risk order high sensitivity CRP (CRPH). Pallavi Paul DO LAB BLOOD ORDERABLES Final Resu lt Performing Organization Address City/[facility]/ZIP Co de Phone Number [facility] [address] [place] [address] * (ABNORMAL) Herpes Simplex Virus (HSV) by PCR (09/12/2024 3:52 PM EDT) [facility] Herpes Simplex Virus 1 (HSV-1) PCR Result Detected(A) Not Detected 09/13/2024 11:46 AM EDT [facility] Herpes Simplex Virus 2 (HSV-2) PCR Result Not Detected Not Detected 09/13/2024 11:46 AM EDT [facility] Swab Oral cavity structure / Unknown Non-blood Collection / Unknown 09/12/2024 3:52 PM EDT 09/12/2024 3:56 PM EDT Narrative [facility] - 09/13/2024 11:46 AM EDT [...] MICROBIOLOGY - GENERAL ELEONORA WEBBER Final Result Performing Organization Address [facility]/ZIP Co de Phone Number [facility] [address] [place] [address] * Quantiferon TB Gold (09/12/2024 3:50 PM EDT) [facility] Quantiferon TB Gold Plus Result Negative Negative 09/13/2024 5:06 PM EDT [facility] TB Nill Value 0.120 IU/mL 09/13/2024 5:06 PM EDT [facility] TB Antigen 1 -0.0285 IU/mL 09/13/2024 5:06 PM EDT [facility] TB Antigen 2 -0.024 IU/mL 09/13/2024 5:06 PM EDT [facility] TB Mitogen 3.39 IU/mL 09/13/2024 5:06 PM EDT [facility] Blood Venous blood specimen / Unknown Venipuncture / Unknown 09/12/2024 3:50 PM EDT 09/12/2024 3:56 PM EDT Narrative [facility] - 09/13/2024 5:06 PM EDT Responses to the Mitogen positive control and occasionally to TB antigen can be above the assay range. For calculation purposes: IFN-gamma values > 10 IU/mL are handled as 10 IU/mL. us Pallavi Paul DO LAB BLOOD ORDERABLES Final Resu lt [facility] [address] [place] [address] * Gold Top (09/12/2024 2:43 PM EDT) Extra Hold for add-ons 09/12/2024 6:01 PM EDT [facility] Comment:Auto resulted. Blood Venous blood specimen / Unknown Venipuncture / Unknown 09/12/2024 2:43 PM EDT 09/12/2024 3:16 PM EDT us Fernando Valenzuela MD LAB BLOOD ORDERABLES Final Resu lt [facility] [address] [place] [address] * Proctor Top (09/12/2024 2:43 PM EDT) Extra Hold for add-ons 09/12/2024 6:01 PM EDT [facility] Comment:Auto resulted. Blood Venous blood specimen / Unknown Venipuncture / Unknown 09/12/2024 2:43 PM EDT 09/12/2024 3:16 PM EDT Fernando Valenzuela MD LAB BLOOD ORDERABLES Final Resu lt Performing Organization Address [facility]/ZIP Co de Phone Number [facility] [address] [place] [address] * Lavender Top (09/12/2024 2:43 PM EDT) Only the most recent of3 resultswithin the time period is included. Extra Hold for add-ons 09/12/2024 6:01 PM EDT [facility] Comment:Auto resulted. Blood Venous blood specimen / Unknown Venipuncture / Unknown 09/12/2024 2:43 PM EDT 09/12/2024 3:16 PM EDT Result [facility] Fernando Valenzuela MD LAB BLOOD ORDERABLES Final Resu lt Performing Organization Address [facility] Co de Phone Number [facility] [address] [place] [address] * Light Green Top (09/12/2024 2:43 PM EDT) Extra Hold for add-ons 09/12/2024 6:01 PM EDT [facility] Comment:Auto resulted. Blood Venous blood specimen / Unknown Venipuncture / Unknown 09/12/2024 2:43 PM EDT 09/12/2024 3:16 PM EDT Result [facility] Fernando Valenzuela MD LAB BLOOD ORDERABLES Final Resu lt Performing Organization Address City/[facility]/ZIP Co de Phone Number [facility] [address] [place] [address] * Blood Culture (Aerobic/Anaerobet Set) (09/11/2024 5:55 PM EDT) Culture No growth at day 5 09/16/2024 8:01 PM EDT [facility] Blood Venous blood specimen / Unknown Venipuncture / Unknown 09/11/2024 5:55 PM EDT 09/11/2024 6:35 PM EDT us Fernando Valenzuela MD LAB MICROBIOLOGY - GENERAL ORDE RABSHERI Final Result Performing Organization Address City/[facility]/ZIP Co de Phone Number [facility] [address] [place] [address] * Fungal Culture, Sterile Body Fluid (NOT CSF) and JAS (09/11/2024 3:35 PM EDT) Culture No Fungal Growth at 3 Weeks 10/12/2024 6:39 AM EDT [facility] JAS No fungal elements seen 10/12/2024 6:39 AM EDT [facility] Pleural Fluid Specimen from pleura obtained by thoracentesis / Unknown Non-blood Collection / Unknown 09/11/2024 3:35 PM EDT 09/11/2024 3:35 PM EDT us Fernando Valenzuela MD LAB MICROBIOLOGY - GENERAL ORDE RABSHERI Final Result Performing Organization Address City/[facility]/ZIP Co de Phone Number [facility] [address] [place] [address] * AFB Culture and Acid Fast Stain - Pleural Right (09/11/2024 3:35 PM EDT) Only the most recent of2 resultswithin the time period is included. AFB Culture No Mycobacterial Growth at 6 Weeks 10/25/2024 4:55 AM EDT [facility] Acid Fast Stain No acid fast bacilli seen 10/25/2024 4:55 AM EDT [facility] Pleural Fluid Specimen from pleura obtained by thoracentesis / Unknown Non-blood Collection / Unknown 09/11/2024 3:35 PM EDT 09/11/2024 3:35 PM EDT us Fernando Valenzuela MD LAB MICROBIOLOGY - GENERAL ORDE RABSHERI Final Result Performing Organization Address City/[facility]/ZIP Co de Phone Number [facility] [address] [place] [address] * Body Fluid Culture and Gram Stain (09/11/2024 3:35 PM EDT) Only the most recent of2 resultswithin the time period is included. Culture No growth at day 4 2024 11:19 AM EDT [facility] Gram Stain Result Moderate Polymorphonuclear leukocytes 09/14/2024 11:19 AM EDT [facility] Gram Stain Result No organisms seen 09/14/2024 11:19 AM EDT [facility] Pleural Fluid Specimen from pleura obtained by thoracentesis / Unknown Non-blood Collection / Unknown 09/11/2024 3:35 PM EDT 09/11/2024 3:35 PM EDT us Fernando Valenzuela MD LAB MICROBIOLOGY - GENERAL ORDE [facility] Final Result [facility] [address] [place] [address] * XR Chest 1 View (09/11/2024 1:45 [...] IMG XR PROCEDURES Final Res ult * NV THORACENTESIS NEEDLE/CATH PLEURA W/IMAGING, HC THORACENTESIS NEEDLE/CATH [...] infection and pneumothorax Alternatives discussed: No treatment [place] protocol: Procedure explained and questions answered to [...] midscapular line Intercostal space: 6th Puncture method: Anas-jrg-[id number] catheter Ultrasound guidance: yes Indwelling catheter: Removed [...] LAB HEMATOLOGY METHOD 09/11/2024 2:07 PM EDT [facility] Appearance, Body fluid Cloudy(A) LAB HEMATOLOGY METHOD 09/11/2024 2:07 PM EDT [facility] Volume, Body fluid 5.0 cc LAB HEMATOLOGY METHOD 09/11/2024 2:07 PM EDT [facility] Fluid Container Tube 3 LAB HEMATOLOGY METHOD 09/11/2024 2:07 PM EDT [facility] Red Blood Cell Count, Body fluid 1,959 uL LAB HEMATOLOGY METHOD 09/11/2024 2:07 PM EDT [facility] Comment:Test performed by nika wills. Total Nucleated Cell Count, Body fluid 243 uL LAB HEMATOLOGY METHOD 09/11/2024 2:07 PM EDT [facility] Neutrophils %, Body fluid 20 % LAB HEMATOLOGY METHOD 09/11/2024 2:07 PM EDT [facility] Lymphocytes %, Body fluid 53 % LAB HEMATOLOGY METHOD 09/11/2024 2:07 PM EDT [facility] Monocytes/Macro phages %, Body fluid 23 % LAB HEMATOLOGY METHOD 09/11/2024 2:07 PM EDT [facility] Eosinophils %, Body fluid 0 % LAB HEMATOLOGY METHOD 09/11/2024 2:07 PM EDT [facility] Lining/Mesothel ial Cells %, Body fluid 4 % LAB HEMATOLOGY METHOD 09/11/2024 2:07 PM EDT [facility] Neutrophils Absolute (PMN), Body fluid 49 uL LAB HEMATOLOGY METHOD 09/11/2024 2:07 PM EDT [facility] Lymphocytes Absolute, Body fluid 129 uL LAB HEMATOLOGY METHOD 09/11/2024 2:07 PM EDT [facility] Monocytes/Macro phages Absolute, Body fluid 56 uL LAB HEMATOLOGY METHOD 09/11/2024 2:07 PM EDT [facility] Eosinophils Absolute, Body fluid 0 uL LAB HEMATOLOGY METHOD 09/11/2024 2:07 PM EDT [facility] Basophils Absolute, Body fluid 0 uL LAB HEMATOLOGY METHOD 09/11/2024 2:07 PM EDT [facility] Lining/Mesothel ial Cells Absolute, Body fluid 10 uL LAB HEMATOLOGY METHOD 09/11/2024 2:07 PM EDT [facility] Comment, Body fluid None LAB HEMATOLOGY METHOD 09/11/2024 2:07 PM EDT [facility] Comment:This is an appended report. These results have been appended to a previously preliminary verified report. Basophils %, Body fluid 0 % LAB HEMATOLOGY METHOD 09/11/2024 2:07 PM EDT [facility] Body Fluid Structure of right pleural cavity / Unknown Non-blood Collection / Unknown 09/11/2024 1:13 PM EDT 09/11/2024 1:25 PM EDT [facility] LAB BODY FLUIDS AND STOOLS ORDERABLES NO SPECIMEN TYPE/SOURCE Final Result Performing Organization Address [facility] [facility] de Phone Number [facility] [address] [place] [address] * Body fluid, cytospin, pathologist interpretation (09/11/2024 1:13 PM EDT) Only the most recent of2 resultswithin the time period is included. Specimen Type Body Fluid LAB HEMATOLOGY METHOD 09/13/2024 11:14 AM EDT [facility] Specimen Source, Body Fluid Pleural, Right LAB HEMATOLOGY METHOD 09/13/2024 11:14 AM EDT [facility] Clinical Diagnosis, Body Fluid Pleural effusion LAB HEMATOLOGY METHOD 09/13/2024 11:14 AM EDT [facility] Interpretation , Body Fluid Mixed inflammatory cells, no malignancy identified 09/13/2024 11:14 AM EDT [facility] Pathologist Signature, Body Fluid 09/13/2024 11:14 AM EDT [facility] Comment:Reviewed by: Simona Long MD LAB CP ASR DISCLAIMER No 09/13/2024 11:14 AM EDT [facility] Body Fluid Structure of right pleural cavity / Unknown Non-blood Collection / Unknown 09/11/2024 1:13 PM EDT 09/11/2024 1:25 PM EDT Júnior Johnson LAB BODY FLUIDS AND STOOLS ORDERABLES Final Result Performing Organization Address City/[facility] de Phone Number [facility] [address] [place] [address] * Total Protein, Pleural Fluid - Pleural Right (09/11/2024 1:12 PM EDT) Only the most recent of2 resultswithin the time period is included. Total Protein, Fluid 2.4 g/dL 09/11/2024 6:20 PM EDT [facility] Pleural Fluid Structure of right pleural cavity / Unknown Non-blood Collection / Unknown 09/11/2024 1:12 PM EDT 09/11/2024 1:24 PM EDT Narrative [facility] - 09/11/2024 6:20 PM EDT This test was developed and its performance characteristics determined by [facility]. The U.S. Food and Drug Administration has not approved or cleared this test. However, FDA clearance or approval is not currently required for clinical use. The results are not intended to be used as the sole means for clinical diagnosis or patient management decisions. Fernando Valenzuela MD LAB BODY FLUIDS AND STOOLS [employer] Final Result [facility] [address] [place] [address] * Lactate Dehydrogenase, Pleural Fluid - Right (09/11/2024 1:12 PM EDT) Only the most recent of2 resultswithin the time period is included. LDH, Fluid 166 U/L 09/11/2024 6:20 PM EDT [facility] Pleural Fluid Structure of right pleural cavity / Unknown Non-blood Collection / Unknown 09/11/2024 1:12 PM EDT 09/11/2024 1:24 PM EDT Narrative [facility] - 09/11/2024 6:20 PM EDT [...] the following criteria are present: (1) pleural ngzae-yv-mecfb protein ratio of >0.5, (2) pleural jnnkv-kr-eeyph LDH ratio of >0.6, or (3) a pleural fluid LDH activity that is >2/3 the upper limit of a normal serum LDH activity. Light's criteria may misclassify ~25% of transudates as exudates in heart failure. These can be identified by calculating a qsixm-bu-tpqbqtr albumin gradient (>1.2 g/dL) and/or a guavd-kq-ivcwm protein gradient (>3.1 g/dL). Júnior Noonan [facility] LAB BODY FLUIDS AND STOOLS ORDERABLES Final Result Performing Organization Address [facility] de Phone Number [facility] [address] [place] [address] * Albumin - Pleural Right (09/11/2024 1:12 PM EDT) Only the most recent of3 resultswithin the time period is included. Albumin, Pleural Fluid 1.2 g/dL 09/11/2024 6:19 PM EDT [facility] Pleural Fluid Structure of right pleural cavity / Unknown Non-blood Collection / Unknown 09/11/2024 1:12 PM EDT 09/11/2024 1:24 PM EDT Narrative [facility] - 09/11/2024 6:19 PM EDT REPORTING RESULTS Reference Values: No established reference interval. Results should be interpreted in comparison to the concentration in blood and in conjunction with the clinical context. This test was developed and its performance characteristics determined by [facility]. The U.S. Food and Drug Administration has not approved or cleared this test; however, FDA clearance or approval is not currently required for clinical use. The results are not intended to be used as the sole means for clinical diagnosis or patient management decisions. Júnior Saran Accuradiochris DO LAB BODY FLUIDS AND STOOLS ORDERABLES Final Result Performing Organization Address [facility] de Phone Number [facility] [address] [place] [address] * (ABNORMAL) pH, pleural fluid (09/11/2024 1:12 PM EDT) Only the most recent of2 resultswithin the time period is included. pH, Pleural Fluid 7.50(L) 7.60 - 7.66 LAB HEMATOLOGY METHOD 09/11/2024 1:30 PM EDT [facility] Pleural Fluid Pleural fluid specimen / Unknown Non-blood Collection / Unknown 09/11/2024 1:12 PM EDT 09/11/2024 1:22 PM EDT Narrative [facility] - 09/11/2024 1:30 PM EDT Normal [...] and its performance characteristics determined by the [facility]. Pleural pH is measured [...] BODY FLUIDS AND STOOLS ORDERABLES Final Result [facility] [address] [place] [id number] * Cytology - Pleural Right (09/11/2024 1:12 PM EDT) Only the most recent of2 resultswithin the time period is included. Case Report Cytology Case: [id number] Authorizing Provider: Fernando Valenzuela MD Collected: 09/11/2024 1312 Ordering Location: [facility] Inpatient Received: 09/13/2024 0937 Pathologist: Nelsy Robles MD Specimen: Pleural Fluid, Right, RIGHT PLEURAL FLUID 09/14/2024 11:40 AM EDT [facility] Final Diagnosis A. RIGHT PLEURAL FLUID - NO EVIDENCE OF MALIGNANCY - FEW MIXED INFLAMMATORY CELLS 09/14/2024 11:40 AM EDT [facility] at 1140 EDT Clinical History Pleural effusion 09/14/2024 11:40 AM EDT [facility] Previous Cancer Primary Site Other/Unknown Primary Site 09/14/2024 11:40 AM EDT [facility] Gross Description A. RIGHT PLEURAL FLUID 1000 ml's tinted, cloudy fluid processed as thin prep and cell block Cold Time: 45h 47m 09/14/2024 11:40 AM EDT [facility] Fluid Structure of right pleural cavity / Unknown 09/11/2024 1:12 PM EDT 09/13/2024 9:37 AM EDT us Fernando Valenzuela MD LAB CYTOLOGY ORDERABLES Final R esult [facility] [address] [place] [address] * Immunoglobulin G Subclasses (1, 2, 3, 4) (SO) (09/11/2024 9:24 AM EDT) IMMUNOGLOBULIN G SUBCLASS 1 1068 240 - 1118 mg/dL 09/14/2024 1:49 AM EDT [facility] ([employer]) IMMUNOGLOBULIN G SUBCLASS 2 316 124 - 549 mg/dL 09/14/2024 1:49 AM EDT [facility] ([employer]) IMMUNOGLOBULIN G SUBCLASS 3 91 21 - 134 mg/dL 09/14/2024 1:49 AM EDT [facility] ([employer]) IMMUNOGLOBULIN G SUBCLASS 4 22 1 - 123 mg/dL 09/14/2024 1:49 AM EDT [facility] ([employer]) Blood Venous blood specimen / Unknown Venipuncture / Unknown 09/11/2024 9:24 AM EDT 09/11/2024 9:30 AM EDT Narrative [facility] ([employer]) - 09/14/2024 1:49 AM EDT REFERENCE INTERVAL: Immunoglobulin G Subclass 1 The total IgG (mg/dL) can be derived from the sum of the subclass IgG1, IgG2, IgG3, and IgG4 values. However, a confirmatory and more precise total IgG is available by the turbidimetric method of quantitation for total IgG. Refer to test Immunoglobulin G, Serum ([id number]). Access complete set of age- and/or gender-specific reference intervals for this test in the [employer] ([employer]). REFERENCE INTERVAL: Immunoglobulin G Subclass 2 Access complete set of age- and/or gender-specific reference intervals for this test in the [employer] ([employer]). REFERENCE INTERVAL: Immunoglobulin G Subclass 3 Access complete set of age- and/or gender-specific reference intervals for this test in the [employer] ([employer]). REFERENCE INTERVAL: Immunoglobulin G Subclass 4 Access complete set of age- and/or gender-specific reference intervals for this test in the [employer] ([employer]). Performed By: [facility] [address] [id number] Coffee Host: Austin Bernal MD, PhD CLIA Number: [id number] Fernando Valenzuela MD LAB REF LAB BLOOD AND FLUID ORD Final Result [facility] [employer]) [address] [id number] * ANCA Vasculitis Profile (09/11/2024 9:24 AM EDT) Myeloperoxidase (MPO) Ab, IgG 3 0 - 19 AU/mL 09/14/2024 3:07 PM EDT [facility] ([employer]) Serine Proteinase 3 (PR3) Ab, IgG 4 0 - 19 AU/mL 09/14/2024 3:07 PM EDT [facility] ([employer]) ANCA IFA Titer <1:20 <1:20 09/14/2024 3:07 PM EDT [facility] ([employer]) ANCA IFA Pattern None Detected None Detected 09/14/2024 3:07 PM EDT [facility] ([employer]) Blood Venous blood specimen / Unknown Venipuncture / Unknown 09/11/2024 9:24 AM EDT 09/11/2024 9:30 AM EDT Narrative [facility] ([employer]) - 09/14/2024 3:07 PM EDT INTERPRETIVE INFORMATION: [...] collagen vascular disease or arthritis. Performed By: [facility] [address] [place] [id number] Coffee Host: Austin Bernal MD, PhD CLIA Number: [id number] Fernando Valenzuela MD LAB BLOOD ORDERABLES Final Resu lt [facility] ([facility]) [address] [place] [id number] * Urinalysis Microscopic Examination (09/10/2024 1:16 PM EDT) Urine Urine specimen obtained by clean catch procedure / Unknown Non-blood Collection / Unknown 09/10/2024 1:16 PM EDT 09/10/2024 1:21 PM EDT Fernando Valenzuela MD LAB URINE ORDERABLES Final Resu lt [facility] [address] [place] [address] * Protein, Random, Urine with Creatinine (09/10/2024 1:16 PM EDT) Protein, Urine 26 mg/dL 09/10/2024 1:42 PM EDT [facility] Creatinine, Urine 12 mg/dL 09/10/2024 1:42 PM EDT [facility] Protein/Creati nine Ratio 2.2 mg/mg Creat 09/10/2024 1:42 PM EDT [facility] Urine Urine specimen obtained by clean catch procedure / Unknown Non-blood Collection / Unknown 09/10/2024 1:16 PM EDT 09/10/2024 1:21 PM EDT Fernando Valenzuela MD LAB URINE ORDERABLES Final Resu lt [facility] [address] [place] [address] * (ABNORMAL) Urinalysis with reflex microscopic (Culture NOT Included) (09/10/2024 1:16 PM EDT) Color, Urine Yellow LAB URINALYSIS - AUTOMATED METHOD 09/10/2024 1:38 PM EDT [facility] Clarity, Urine Clear LAB URINALYSIS - AUTOMATED METHOD 09/10/2024 1:38 PM EDT [facility] Spec Valdez, Urine 1.009 1.005 - 1.030 LAB URINALYSIS - AUTOMATED METHOD 09/10/2024 1:38 PM EDT [facility] pH, Urine 6.0 5.0 - 8.0 LAB URINALYSIS - AUTOMATED METHOD 09/10/2024 1:38 PM EDT [facility] Protein, Urine 30(A) Negative mg/dL LAB URINALYSIS - AUTOMATED METHOD 09/10/2024 1:38 PM EDT [facility] Glucose, Urine 250(A) Negative mg/dL LAB URINALYSIS - AUTOMATED METHOD 09/10/2024 1:38 PM EDT [facility] Ketones, Urine Negative Negative mg/dL LAB URINALYSIS - AUTOMATED METHOD 09/10/2024 1:38 PM EDT [facility] Blood, Urine Small(A) Negative LAB URINALYSIS - AUTOMATED METHOD 09/10/2024 1:38 PM EDT [facility] Bilirubin, Urine Negative Negative LAB URINALYSIS - AUTOMATED METHOD 09/10/2024 1:38 PM EDT [facility] Urobilinogen, Urine 0.2 0.2 to 1.0 mg/dL LAB URINALYSIS - AUTOMATED METHOD 09/10/2024 1:38 PM EDT [facility] Leukocytes, Urine Trace(A) Negative LAB URINALYSIS - AUTOMATED METHOD 09/10/2024 1:38 PM EDT [facility] Nitrite, Urine Negative Negative LAB URINALYSIS - AUTOMATED METHOD 09/10/2024 1:38 PM EDT [facility] RBC, Urine 3 0 to 3 /HPF 09/10/2024 1:38 PM EDT [facility] Comment:This result was prev iously suppressed from the chart. WBC, Urine 0 - 5 0 to 5 /HPF 09/10/2024 1:38 PM EDT [facility] Comment:This result was prev iously suppressed from the chart. Squamous Epithelial Cells 0 - 2 0 to 5 /HPF 09/10/2024 1:38 PM EDT [facility] Comment:This result was prev iously suppressed from the chart. Hyaline Casts 0 - 2 0 to 5 /LPF 09/10/2024 1:38 PM EDT [facility] Comment:This result was prev iously suppressed from the chart. Bacteria, Urine Negative Negative 09/10/2024 1:38 PM EDT [facility] Comment:This result was prev iously suppressed from the chart. Urine Urine specimen obtained by clean catch procedure / Unknown Non-blood Collection / Unknown 09/10/2024 1:16 PM EDT 09/10/2024 1:21 PM EDT Narrative [facility] - 09/10/2024 1:38 PM EDT Performed by manual method us Fernando Valenzuela MD LAB URINE ORDERABLES Final Resu lt Performing Organization Address City/State/[facility] Co de Phone Number [facility] [address] [place] [address] * (ABNORMAL) IG Profile (09/10/2024 3:24 AM EDT) IGA 137 75 - 400 mg/dL 09/11/2024 12:02 AM EDT [facility] IGG 1,777(H) 720 - 1,589 mg/dL 09/11/2024 12:02 AM EDT [facility] IGM 89 35 - 225 mg/dL 09/11/2024 12:02 AM EDT [facility] Blood Venous blood specimen / Unknown Venipuncture / Unknown 09/10/2024 3:24 AM EDT 09/10/2024 3:42 AM EDT us Pallavi Paul DO LAB BLOOD ORDERABLES Final Resu lt [facility] [address] [place] [address] * Anti-DNA antibody, double-stranded (09/10/2024 3:24 AM EDT) Double-Strande d DNA (dsDNA) Ab IgG IFA <1:10 <1:10 09/14/2024 3:49 PM EDT [facility] ([facility]) Blood Venous blood specimen / Unknown Venipuncture / Unknown 09/10/2024 3:24 AM EDT 09/10/2024 3:42 AM EDT Narrative [facility] ([facility]) - 09/14/2024 3:49 PM EDT [...] recommendations for testing may be found at [email or web address]. Performed By: [facility] [address] [place] [address] Coffee Host: Austin Bernal MD, PhD CLIA Number: [id number] us Fernando Valenzuela MD LAB BLOOD ORDERABLES Final Resu lt [facility] ([employer]) [address] [place] [address] * C3 complement (09/10/2024 3:24 AM EDT) C3 Complement 102 84 - 166 mg/dL 09/10/2024 9:22 AM EDT [facility] Blood Venous blood specimen / Unknown Venipuncture / Unknown 09/10/2024 3:24 AM EDT 09/10/2024 3:42 AM EDT us Fernando Valenzuela MD LAB BLOOD ORDERABLES Final Resu lt [facility] [address] [place] [address] * C4 complement (09/10/2024 3:24 AM EDT) Pathologist [facility] C4 Complement 15 13 - 36 mg/dL 09/10/2024 9:22 AM EDT [facility] Blood Venous blood specimen / Unknown Venipuncture / Unknown 09/10/2024 3:24 AM EDT 09/10/2024 3:42 AM EDT us Fernando Valenzuela MD LAB BLOOD ORDERABLES Final Resu lt Performing Organization Address City/[facility]/[place] [address] * (ABNORMAL) Blood gas panel, venous (09/09/2024 4:50 PM EDT) pH, Venous 7.35 7.32 - 7.43 LAB HEMATOLOGY METHOD 09/09/2024 4:59 PM EDT [facility] pCO2, Venous 58(H) 37 - 52 mmHg LAB HEMATOLOGY METHOD 09/09/2024 4:59 PM EDT [facility] pO2, Venous 19(L) 25 - 40 mmHg LAB HEMATOLOGY METHOD 09/09/2024 4:59 PM EDT [facility] SO2, Measured, Venous 20(L) 65 - 80 % LAB HEMATOLOGY METHOD 09/09/2024 4:59 PM EDT [facility] Base Excess, Venous 4.9(H) -2.0 - 3.0 mmol/L LAB HEMATOLOGY METHOD 09/09/2024 4:59 PM EDT [facility] Bicarbonate, Calculated, Venous 32(H) 22 - 26 mmol/L LAB HEMATOLOGY METHOD 09/09/2024 4:59 PM EDT [facility] Hematocrit, Whole Blood 30.9(L) 34.0 - 45.0 % LAB HEMATOLOGY METHOD 09/09/2024 4:59 PM EDT [facility] Sodium, Whole Blood 133(L) 136 - 145 mmol/L LAB HEMATOLOGY METHOD 09/09/2024 4:59 PM EDT [facility] Potassium, Whole Blood 4.0 3.6 - 4.9 mmol/L LAB HEMATOLOGY METHOD 09/09/2024 4:59 PM EDT [facility] Chloride, Whole Blood 93(L) 97 - 107 mmol/L LAB HEMATOLOGY METHOD 09/09/2024 4:59 PM EDT [facility] Glucose, Whole Blood 208(H) 74 - 99 mg/dL LAB HEMATOLOGY METHOD 09/09/2024 4:59 PM EDT [facility] Lactate, Venous, Whole Blood 2.3(H) 0.5 - 2.2 mmol/L LAB HEMATOLOGY METHOD 09/09/2024 4:59 PM EDT [facility] Ionized Calcium, Whole Blood 4.5(L) 4.6 - 5.1 mg/dL LAB HEMATOLOGY METHOD 09/09/2024 4:59 PM EDT [facility] Blood Venous blood specimen / Unknown Venipuncture / Unknown 09/09/2024 4:50 PM EDT 09/09/2024 4:55 PM EDT Vini SMITH LAB BLOOD ORDERABLES Final Resul t [facility] [address] [place] [id number] * (ABNORMAL) BNP (09/09/2024 3:50 PM EDT) Only the most recent of3 resultswithin the time period is included. N-Terminal, PROBNP, Plasma 10,690(H) 0 - 899 pg/mL 09/09/2024 4:43 PM EDT [facility] Blood Venous blood specimen / Unknown Venipuncture / Unknown 09/09/2024 3:50 PM EDT 09/09/2024 4:04 PM EDT Vini Wild Zhao [place] LAB BLOOD ORDERABLES Final Resul t Performing Organization Address City/[facility] Co de Phone Number [facility] [address] [place] [address] * EKG now - STAT (adult) (09/09/2024 3:36 PM EDT) Only the most recent of3 resultswithin the time period is included. EKG DIAGNOSIS CLASS Abnormal MUSE ECG Ventricular Rate 61 BPM MUSE ECG Atrial Rate 68 BPM MUSE ECG QRSD Interval 190 ms MUSE ECG QT Interval 546 ms MUSE ECG QTC Interval 549 ms MUSE ECG R [place] -74 degrees MUSE ECG T Wave [place] 120 degrees MUSE ECG Diagnosis Ventricular-p aced rhythm MUSE ECG Diagnosis Abnormal ECG MUSE ECG Diagnosis MUSE ECG Diagnosis Confirmed by Chris Cline ([id number]) on 09/09/2024 4:33:37 PM MUSE ECG 09/09/2024 3:36 PM EDT 09/09/2024 4:33 PM EDT Vini Torri Churchill PA ECG ORDERABLES Final Result Performing Organization Address [facility] Co de Phone Number MUSE ECG * [...] - 160 ug/dL 09/08/2024 4:06 PM EDT [facility] Transferrin, Plasma 262 200 - 360 mg/dL 09/08/2024 4:06 PM EDT [facility] Total Iron Binding Capacity, Plasma 328 240 - 450 ug/mL 09/08/2024 4:06 PM EDT [facility] Transferrin Saturation 8(L) 14 - 50 % 09/08/2024 4:06 PM EDT [facility] Blood Venous blood specimen / Unknown Venipuncture / Unknown 09/08/2024 1:33 PM EDT 09/08/2024 1:33 PM EDT us Alisa L Ze DO LAB BLOOD ORDERABLES Final Res ult [facility] [address] [place] [address] * Ferritin (09/08/2024 1:33 PM EDT) [facility] Ferritin, Serum 102 13 - 150 ng/mL 09/08/2024 4:37 PM EDT [facility] Blood Venous blood specimen / Unknown Venipuncture / Unknown 09/08/2024 1:33 PM EDT 09/08/2024 1:33 PM EDT us Alisa L Ze DO LAB BLOOD ORDERABLES Final Res ult Performing Organization Address City/[facility]/ZIP Co de Phone Number [facility] [address] [place] [address] * SARS-CoV-2, Flu A, Flu B, and RSV (09/08/2024 1:09 PM EDT) [facility] SARS CoV-2/COVID-19 RNA PCR Result Not Detected Not Detected 09/09/2024 10:48 AM EDT [facility] Influenza A Virus PCR Result Not Detected Not Detected 09/09/2024 10:48 AM EDT [facility] Influenza B Virus PCR Result Not Detected Not Detected 09/09/2024 10:48 AM EDT [facility] Respiratory Syncytial Virus (RSV) PCR Result Not Detected Not Detected 09/09/2024 10:48 AM EDT [facility] Swab Nasopharyngeal structure / Unknown Non-blood Collection / Unknown 09/08/2024 1:09 PM EDT 09/08/2024 4:50 PM EDT Narrative [facility] - 09/09/2024 10:48 AM [...] testing. This test was performed on the [employer] Respiratory Viral Panel, a PCR-based method. Negative [...] MICROBIOLOGY - GENERAL ORD ERABLES Final Result [facility] [address] [place] [address] * RIGHT HEART CATHETERIZATION (08/18/2024 4:04 PM [...] then carried out using a 7.5F VIP [place]-Carter catheter. Pressures were recorded as the catheter [...] the patient was transferred back to the recyclable products sorter holding area in good condition. Study Details [...] Co-Oximetry Mixed Venous (08/18/2024 3:52 PM EDT) [facility] POCT Oxyhemoglobin, Mixed Venous 60.8 % 08/18/2024 3:53 PM EDT [facility] Radial Arm Saw Operator ID Ngozi Linares 08/18/2024 3:53 PM EDT [facility] Device ID [id number] 08/18/2024 3:53 PM EDT [facility] POCT Sample Site PA 08/18/2024 3:53 PM EDT [facility] POCT Total Hemoglobin 9.7(L) 11.2 - 15.7 g/dL 08/18/2024 3:53 PM EDT [facility] 08/18/2024 3:52 PM EDT 08/18/2024 3:53 PM EDT Kenneth James MD LAB POINT OF CARE TE ST DOCKED DEVICE UNSOLICITED RESULTS Final Result [facility] [address] [place] [address] * (ABNORMAL) POCT CO-Oximitry, Venous (08/18/2024 3:50 PM EDT) POCT OXYHEMOGLOBIN, VENOUS 65 40 - 70 % 08/18/2024 3:50 PM EDT [facility] Radial Arm Saw Operator ID Vijay, Ngozi 08/18/2024 3:50 PM EDT [facility] Device ID [id number] 08/18/2024 3:50 PM EDT [facility] POCT Sample Site -[facility]- 08/18/2024 3:50 PM EDT [facility] POCT Total Hemoglobin 9.7(L) 11.2 - 15.7 g/dL 08/18/2024 3:50 PM EDT [facility] Venous blood specimen / Unknown 08/18/2024 3:50 PM EDT 08/18/2024 3:50 PM EDT Kenneth James MD LAB POINT OF CARE TE ST DOCKED DEVICE UNSOLICITED RESULTS Final Result Performing Organization Address [facility] Co de Phone Number [facility] [address] [place] [address] * Chylomicron Electrophoresis (Reflex Only) (08/17/2024 10:57 AM EDT) [facility] Chylomicron Electrophoresis Billed 08/25/2024 6:56 PM EDT [facility] ([employer]) Fluid Pleural fluid specimen / Unknown 08/17/2024 10:57 AM EDT 08/17/2024 11:10 AM EDT Narrative [facility] ([employer]) - 08/25/2024 6:56 PM EDT Performed By: [facility] [address] [place] [id number] Coffee Host: Austin Bernal MD, PhD CLIA Number: [id number] us Boby Rouse APRN LAB REF LAB BLOOD AND FLUID ORD Final Result [facility] ([employer]) [address] [place] [address] * Triglycerides BF with RFLX to CHYLO (SO) (08/17/2024 10:57 AM EDT) Triglyceride, Fluid 27 mg/dL 08/25/2024 6:56 PM EDT [facility] ([facility]) Triglyceride Fluid Source Pleural fluid 08/25/2024 6:56 PM EDT [facility] ([facility]) Chylomicron Screen, Body Fluid Absent Absent 08/25/2024 6:56 PM EDT [facility] ([facility]) Fluid Pleural fluid specimen / Unknown 08/17/2024 10:57 AM EDT 08/17/2024 11:10 AM EDT Narrative [facility] ([facility]) - 08/25/2024 6:56 PM EDT INTERPRETIVE INFORMATION: Triglycerides, Fluid For information on body fluid reference ranges and/or interpretive guidance visit [email or web address] [email or web address]/bodyfluids/ This test was developed and its performance characteristics determined by [facility]. It has not been cleared or approved by the [place] Food and Drug Administration. This test was performed in a CLIA certified laboratory and is intended for clinical purposes. Chylomicrons were not detected. This appears to be a nonchylous fluid. INTERPRETIVE INFORMATION: Chylomicron Screen, Body Fluid This test was developed and its performance characteristics determined by [facility]. It has not been cleared or approved by the U.S. Food and Drug Administration. This test was performed in a CLIA-certified laboratory and is intended for clinical purposes. Performed By: [facility] [address] [id number] Coffee Host: Austin Bernal MD, PhD CLIA Number: [id number] us Boby Rouse APRN LAB REF LAB BLOOD AND FLUID ORD Final Result [facility] ([facility] [address] [place] [address] * Amylase, Pleural Fluid (08/17/2024 10:57 AM EDT) Amylase, Pleural Fluid 6 U/L 08/17/2024 1:23 PM EDT [facility] Pleural Fluid Structure of right pleural cavity / Unknown Non-blood Collection / Unknown 08/17/2024 10:57 AM EDT 08/17/2024 11:08 AM EDT Narrative [facility] - 08/17/2024 1:23 PM EDT Reference Values: No established reference interval. Interpret with caution. This test was developed and its performance characteristics determined by [facility]. The U.S. Food and Drug [...] upper reference limit for serum and a aqaqz-um-atujv amylase ratio greater than one. Note: Interpretive [...] FLUIDS AND STOOLS ORD ERABLES Final Result [facility] [address] [place] [address] * Cholesterol Fluid Battery (08/17/2024 10:57 AM [...] fluid reference ranges and/or interpretive guidance visit [email or web address] This test was developed and its performance characteristics determined by [facility]. It has not been cleared or approved by the US Food and Drug Administration. This test was performed in a CLIA certified laboratory and is intended for clinical purposes. Performed By: [facility] [email or web address] [address] [place] [address] Coffee Host: Austin Bernal MD, PhD CLIA Number: [id number] Boby Rouse APRN LAB REF LAB BLOOD AND FLUID ORD Final Result Performing Organization Address City/[facility]/ZIP Co de Phone Number [facility] [place] [place] [address] * Adenosine Deaminase,Pleural Fluid (08/17/2024 10:57 AM EDT) ADA, Pleural Fluid 5 0 - 30 U/L 08/19/2024 3:10 PM EDT [facility] ([facility]) Pleural Fluid Structure of right pleural cavity / Unknown Non-blood Collection / Unknown 08/17/2024 10:57 AM EDT 08/17/2024 11:10 AM EDT Narrative [facility]) - 08/19/2024 3:10 PM EDT INTERPRETIVE INFORMATION:Adenosine Deaminase, Pleural Fluid This test was developed and its performance characteristics determined by [facility]. It has not been cleared or approved by the US Food and Drug Administration. This test was performed in a CLIA certified laboratory and is intended for clinical purposes. Performed By: [facility] [email or web address] [address] [place] [address] Coffee Host: Austin Bernal MD, PhD CLIA Number: [id number] Boby Rouse APRN LAB BODY FLUIDS AND STOOLS ORDERABLES Final Result Performing Organization Address [facility]/ZIP Co de Phone Number [facility] ([facility]) [address] [place] [address] * Glucose - Pleural Right (08/17/2024 10:57 AM EDT) Glucose, Fluid 309 mg/dL 08/17/2024 1:14 PM EDT [facility] Pleural Fluid Structure of right pleural cavity / Unknown Non-blood Collection / Unknown 08/17/2024 10:57 AM EDT 08/17/2024 11:08 AM EDT Narrative [facility] - 08/17/2024 1:14 PM EDT [...] BODY FLUIDS AND STOOLS ORDERABLES Final Result [facility] [address] [place] [address] * (ABNORMAL) Blood gas panel, arterial (08/15/2024 5:01 AM EDT) pH, Arterial 7.46(H) 7.31 - 7.42 LAB HEMATOLOGY METHOD 08/15/2024 5:14 AM EDT [facility] pCO2, Arterial 46 35 - 48 mmHg LAB HEMATOLOGY METHOD 08/15/2024 5:14 AM EDT [facility] pO2, Arterial 70(L) >70 mmHg LAB HEMATOLOGY METHOD 08/15/2024 5:14 AM EDT [facility] SO2, Measured, Arterial 95 94 - 98 % LAB HEMATOLOGY METHOD 08/15/2024 5:14 AM EDT [facility] Base Excess, Arterial 7.4(H) -2.0 - 3.0 mmol/L LAB HEMATOLOGY METHOD 08/15/2024 5:14 AM EDT [facility] Bicarbonate, Calculated, Arterial 32(H) 22 - 26 mmol/L LAB HEMATOLOGY METHOD 08/15/2024 5:14 AM EDT [facility] Hematocrit, Whole Blood 30.3(L) 34.0 - 45.0 % LAB HEMATOLOGY METHOD 08/15/2024 5:14 AM EDT [facility] Sodium, Whole Blood 137 136 - 145 mmol/L LAB HEMATOLOGY METHOD 08/15/2024 5:14 AM EDT [facility] Potassium, Whole Blood 3.0(L) 3.6 - 4.9 mmol/L LAB HEMATOLOGY METHOD 08/15/2024 5:14 AM EDT [facility] Chloride, Whole Blood 96(L) 97 - 107 mmol/L LAB HEMATOLOGY METHOD 08/15/2024 5:14 AM EDT [facility] Glucose, Whole Blood 75 74 - 99 mg/dL LAB HEMATOLOGY METHOD 08/15/2024 5:14 AM EDT [facility] Ionized Calcium, Whole Blood 4.6 4.6 - 5.1 mg/dL LAB HEMATOLOGY METHOD 08/15/2024 5:14 AM EDT [facility] Lactate, Arterial, Whole Blood 0.7 0.5 - 1.6 mmol/L LAB HEMATOLOGY METHOD 08/15/2024 5:14 AM EDT [facility] Blood Arterial blood specimen / Unknown Arterial Puncture / Unknown 08/15/2024 5:01 AM EDT 08/15/2024 5:13 AM EDT [facility] Ashish Vargas MD LAB BLOOD ORDERABLES Final R esult [facility] [address] [place] [address] * Vitamin D 25 Hydroxy (08/15/2024 4:52 AM EDT) Vitamin D 25 Hydroxy 51.5 20.0 - 80.0 ng/mL 08/15/2024 6:37 AM EDT [facility] Blood Venous blood specimen / Unknown Venipuncture / Unknown 08/15/2024 4:52 AM EDT 08/15/2024 4:59 AM EDT Narrative [facility] - 08/15/2024 6:37 AM EDT Testing performed on Blank Pest Control Technician, standardized against NIST SRM 2972. When testing [...] ORDERABLES Final Re sult Performing Organization Address [facility]/ZIP Co de Phone Number [facility] [address] [place] [address] * Phosphorus (08/15/2024 4:52 AM EDT) Phosphorus, Plasma 3.2 2.5 - 4.5 mg/dL 08/15/2024 5:32 AM EDT [facility] Blood Venous blood specimen / Unknown Venipuncture / Unknown 08/15/2024 4:52 AM EDT 08/15/2024 4:59 AM EDT Arben Ibarra MD LAB BLOOD ORDERABLES Final Re sult Performing Organization Address City/[facility]/[place] Co de Phone Number [facility] [address] [place] [address] * (ABNORMAL) Hemoglobin A1c (08/14/2024 6:08 PM EDT) Hemoglobin A1c 7.9(H) <5.7 % 08/15/2024 11:41 AM EDT [facility] Blood Venous blood specimen / Unknown Venipuncture / Unknown 08/14/2024 6:08 PM EDT 08/14/2024 6:10 PM EDT Narrative [facility] - 08/15/2024 11:41 AM EDT HA1C Interpretive Data: Diagnosis of Diabetes: Diabetic > or = 6.5% Pre-diabetic 5.7 to 6.4% Non-diabetic < or = 5.6% Glycemic Targets for Type I and Type II Diabetics: Non- Adults <7.0% Adults <6.0% Children and Adolescents <7.5% Source: [place] [employer]. Standards of medical care in diabetes,2017. Diabetes Care.2017:40 (suppl 1):S1-S135. us Arben Ibarra MD LAB BLOOD ORDERABLES Final Re sult Performing Organization Address City/[facility]/ZIP Co de Phone Number [facility] [address] [place] [address] * (ABNORMAL) Troponin now and 120 min (08/14/2024 2:55 PM EDT) Troponin T, High Sensitivity, 0 Hour 29(H) <14 ng/L 08/14/2024 3:43 PM EDT [facility] Blood Venous blood specimen / Unknown Venipuncture / Unknown 08/14/2024 2:55 PM EDT 08/14/2024 2:58 PM EDT us Jackson Puente MD LAB BLOOD ORDERABLES Fi nal Result Performing Organization Address [facility]/ZIP Co de Phone Number [facility] [address] [place] [address] * Hepatitis C Antibody - ED (01/29/2024 3:32 PM EST) Hepatitis C Antibody Negative Negative 01/29/2024 5:07 PM EST [facility] Blood Venous blood specimen / Unknown Venipuncture / Unknown 01/29/2024 3:32 PM EST 01/29/2024 4:03 PM EST us Fortino Ball MD LAB BLOOD ORDERABLES Final Result Performing Organization Address City/[facility]/ZIP Co de Phone Number [facility] [address] [place] [address] * Dexa Bone Density (01/10/2023 10:23 AM EDT) Anatomical Region Laterality Modality L-spine Radiographic Elissa ging Narrative 01/12/2023 8:29 AM EST [facility] - Nephrology, Bone & Mineral Metabolism [address] [address], [place] [address] DXA Bone Densitometry Report: [01/10/2023] Subjective BMD test performed using the Kerlink DXA System (analysis version: 14.10) manufactured by [employer]. REFERRING PROVIDER: Alisa Ortega DO CLINICAL INFORMATION: [...] 04/19/2015 Mammography Breast Screening Tomosynthesis Bilateral at [facility] 05/06/2017 Mammography Breast Screening Tomosynthesis Bilateral at [facility] 01/25/2020 Mammography Breast Screening Tomosynthesis Bilateral at [facility] BREAST COMPOSITION: The breasts are heterogeneously dense, which may obscure small masses. FINDINGS: There are post-biopsy clip(s) present in the the right breast. There is no evidence of suspicious masses, calcifications, or other abnormal findings. us Jackson Malave MD IMG BI PROCEDURES Final Re sult from Last 3 Months or Most Recently Relevant to Health Maintenance Insurance [facility] MEDICARE Advance Directives * Full Code (Latest [...] Patient has decision-making capacity? Yes Care Teams Surveillance Sensor Officer Relationship Specialty Start Date End Date Alisa Kunz DO [address] [place] [phone] PCP - General Internal Medicine 03/13/21 Kodi Bustos DO [address] [address] Surgeon Cardiothoracic Surgery 11/06/22 Sujit Arriola MD [address] [place] [phone] Consulting Physician Pulmonary Disease 11/06/22 Sujit Reyes MD [address] [place] [phone] Referring Physician 12/04/22 Zee Lazar DO [address] [place], [place] [id number] Resident 09/08/24
--- OUTSIDE RECORDS SUMMARY | 2024-10-26 13:12 | XMS_ITS | Encounter Summary ---
Author Organization Healthcare Address [address] [place] [address] Care Team Providers Care Loss Prevention Guard Name Role Phone Alisa Kunz DO Primary Care Provider Kodi Bustos DO Unavailable [phone] Sujit Arriola MD Unavailable [phone] Sujit Reyes MD Unavailable [phone] Ekaterina Gómez Unavailable Unavailable Zully Caldwell LPN Unavailable Unavailable Ekaterina Gómez Unavailable Unavailable Patricia Yañez LPN Unavailable Unavailab le Encounter Details Date Type Department Care Team (Late st Contact Info) Description 07/08/2024 Results Follow-Up [facility] Medicine Specialties [address] [place] [address] Lavern Shoemaker MD [address] [id number] Social History Tobacco Use Types Packs/Day Years [...] drink first t anselmo in the morning (EYE-MECHANICAL PLANNER) to steady your nerves or to get rid of a hangover? 0 08/14/2024 CAGE Questionnaire Score 0 025 Utilities Answer Date Recorded In the past 12 months has e [employer], gas, oil, or water [employer] threatened to shut off services in your [...] Description 10/27/2024 1:40 PM EDT Office Visit [facility] Endocrinology [address] [place] [phone] Anne-Marie Kolb, SEASONAL TAX PREPARER [address] [place] [phone] 12/06/2024 11:20 AM EDT Office Visit [facility] Internal Medicine [address] [place] [phone] Alisa Kunz, DO [address] [place] [address] 12/23/2024 4:00 PM EDT Office Visit [facility] Medicine Specialties [address] [place] [address] Lavern Shoemaker MD [address] [place], [place] [phone] 02/02/2025 8:40 AM EST Office Visit [facility] Internal Medicine [address] [place] [address] Alisa Kunz, DO [address] [address] documented as of this encounter [...] documented as of this encounter Care Teams Loss Prevention Guard Relationship Specialty Start Date End Date Alisa Kunz DO [address] [place] [address] PCP - General Internal Medicine 03/13/21 Kodi Bustos DO [address] [phone] Surgeon Cardiothoracic Surgery 11/06/22 Sujit Arriola MD [address] [place] [address] Consulting Physician Pulmonary Disease 11/06/22 Sujit Reyes MD [address] [place] [address] Referring Physician 12/04/22 Ekaterina Gómez Tableau Report Developer Galley Cook 07/14/24 07/14/24 Zully Caldwell LPN [employer] [address] TCM Nurse 07/16/24 08/15/24 Ekaterina Gómez Tableau Report Developer Galley Cook 08/16/24 08/16/24 Patricia Yañez LPN [facility] TCM Nurse 08/25/24 10/17/24 documented as of this encounter
--- OUTSIDE RECORDS SUMMARY | 2024-10-26 13:14 | XMS_ITS | Clinical Summary ---
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 (E10.621) L97.522 (ICD-10-CM ) 04/20 Active 04/20 Patricia Sutherland Non-pressure chronic ulcer of other part of left foot with fat layer exposed Cellulitis, foot, left 109217954 (SNOMED CT) 04/20 Active 04/20 Patricia Koko Cellulitis of foot Cellulitis, toe, left 08483163 (SNOMED CT) 04/20 Active 04/20 Patricia Koko Cellulitis of toe Left atrial thrombus 613084955 (SNOMED CT) 04/20 Active 04/20 Patricia Koko Atrial thrombosis SLE (Systemic lupus erythematosus ) 31659359 (SNOMED CT) 04/20 Active 04/20 Patricia Koko Systemic lupus erythematosus Presence of cardiac pacemaker 449820423 (SNOMED CT) 04/20 Active 04/20 Patricia Sutherland Cardiac pacemaker in situ Coronary artery disease, S/P CABG 796004820 (SNOMED CT) 04/20 Active 04/20 Patricia Sutherland Arteriosclerosis of coronary artery bypass graft DM, type I 33244537 (SNOMED CT) 04/20 Active 04/20 Patricia Sutherland Type 2 diabetes mellitus Benign Essential Hypertension 25580427 (SNOMED CT) 04/20 Active 04/20 Patricia Sutherland Benign hypertension Medications Medication Instructions Start Date Stop Date Generic Name NDC Provider Iron (ferrous sulfate) (ferrous sulfate) ferrous sulfate [facility] B-12 1000 MCG CAPS every morning cya nocobalamin (vitamin b-12) 10717431654 [facility] LIVALO 4 MG TABS every night pitavas tatin calcium 88975683706 [facility] ZETIA 10 MG TABS every night ezetimibe 469718872 01 [facility] latanoprost (bulk) every evening bulk [facility] Zyrtec (cetirizine) every evening cetirizine [facility] MYCOPHENOLATE MOFETIL 500 MG TABS twice a day mycophenolat e mofetil 57131258835 [facility] CETIRIZINE HCL 10 MG TABS Take 1 tablet by mouth once a day 02/23 cetirizine 90589387881 [facility] BRIMONIDINE TARTRATE 0.2 % SOLN Apply 1 drop in eye as directed 06/14 brimonidine 39088940497 [facility] Trelegy Ellipta 200-62.5-25 MCG/INH inhaler Inhale 2 puff once a day 07/17 Trelegy Ellipta 200-62.5-25 MCG/INH inhaler [facility] HYDROXYCHLOROQUINE SULFATE 200 MG TABS Take 1 tablet by mouth once a day 12/05 hydroxychloroquine 58312848278 [facility] RISAQUAD CAPS Take 1 capsule by mouth once a day 04/18 l.acid,para-b.bifid um-s.therm 49641112334 [facility] LOSARTAN POTASSIUM 25 MG TABS Take 1 tablet by mouth once a day 11/17 losartan 47077766620 [facility] FOLIC ACID 1 MG TABS Take 1 tablet by mouth once a day folic acid 81982921939 [facility] PITAVASTATIN CALCIUM 2 MG TABS Take 1 tablet by mouth every night 02/23 pitavastatin calcium 89928529540 [facility] Insulin Glargine (TOUTREVOR SOLOSTAR SC) Inject 23 unit subcutaneously every night as directed 02/23 TOUJEO SOLOSTAR SC [facility] EZETIMIBE 10 MG TABS Take 1 tablet by mouth every night 02/23 ezetimibe 65982377848 [facility] DULOXETINE HCL 20 MG CPEP Take 1 capsule by mouth once a day 02/23 duloxetine 43260493001 [facility] BUSPIRONE HCL 5 MG TABS Take 1 tablet by mouth twice a day buspirone 06095112177 [facility] INSULIN LISPRO 100 UNIT/ML SOLN Inject 3 unit subcutaneously three times a day as directed 02/23 insulin lispro 41882577521 [facility] METOPROLOL SUCCINATE ER 25 MG [id number] Take 1 tablet by mouth once a day 12/06 metoprolol succinate 72849820856 [facility] LATANOPROST 0.005 % SOLN Administer 1 drop into both eyes every night 06/15 latanoprost 09003796965 [facility] ASPIRIN LOW DOSE 81 MG TBEC Take 1 tablet by mouth every night aspirin 87835973905 [facility] LEVOTHYROXINE SODIUM 125 MCG TABS Take 1 tablet by mouth once a day 02/23 levothyroxine 44099209332 [facility] WARFARIN SODIUM 5 MG TABS Take 1 tablet by mouth every night 04/04 warfarin 86614247089 [facility] HYDROXYCHLOROQUINE SULFATE 200 MG TABS Take 1 tablet by mouth every night 02/23 hydroxychloroquine 92418903522 [facility] AZITHROMYCIN 250 MG TABS Take 1 tablet by mouth once a day 02/23 azithromycin 18103784607 [facility] GABAPENTIN 100 MG CAPS Take 9 capsule by mouth every night 08/28 gabapentin 12128060578 [facility] DULOXETINE HCL 60 MG CPEP Take 1 capsule by mouth Daily. 60mg and 20mg in the morning 02/23 duloxetine 50854310564 [facility] Calcium Citrate-Vitamin D (CALCIUM D PO) Take 1 tablet by mouth once a day CALCIUM D PO [facility] EZETIMIBE 10 MG TABS Take 1 tablet by mouth once a day 09/20 ezetimibe 22258668129 Madyson Villar Toujeo Max U-300 SoloStar (insulin glargine u-300 conc) every morning insulin glargine u-300 conc Madyson Villar CYMBALTA 60 MG CPEP every morning duloxetine 000 20423349 Madyson Villar Cymbalta 20 mg capsule,delayed release every morning duloxetine 32762412216 Madyson Villar WARFARIN SODIUM 5 MG TABS Take 1 tablet by mouth Every Night. 04/04 warfarin 67519369947 [facility] Trelegy Ellipta 200-62.5-25 MCG/INH inhaler Inhale 2 puffs Daily. 07/17 Trelegy Ellipta 200-62.5-25 MCG/INH inhaler [facility] PITAVASTATIN CALCIUM 2 MG TABS Take 1 tablet by mouth Every Night. 02/23 pitavastatin calcium 37471434535 [facility] METOPROLOL SUCCINATE ER 25 MG [id number] Take 1 tablet by mouth Daily. 12/06 metoprolol succinate 64994100291 [facility] LOSARTAN POTASSIUM 25 MG TABS Take 1 tablet by mouth Daily. 11/17 losartan 35956889503 [facility] LEVOTHYROXINE SODIUM 125 MCG TABS Take 1 tablet by mouth Daily. 02/23 levothyroxine 19354508421 [facility] LATANOPROST 0.005 % SOLN Administer 1 drop to both eyes Every Night. 06/15 latanoprost 24229224099 [facility] RISAQUAD CAPS Take 1 capsule by mouth Daily for 14 days. 04/18 l.acid,para-b.bifid um-s.therm 38972670413 [facility] INSULIN LISPRO 100 UNIT/ML SOLN Inject 3 Units under the skin into the appropriate area as directed 3 (Three) Times a Day Before Meals. 02/23 insulin lispro 01201983724 [facility] Insulin Glargine (TOURANDYO SOLOSTAR SC) Inject 23 Units under the skin into the appropriate area as directed Every Night. 02/23 TOUJEO SOLOSTAR SC [facility] HYDROXYCHLOROQUINE SULFATE 200 MG TABS Take 1 tablet by mouth Daily. 12/05 hydroxychloroquine 05245009996 [facility] HYDROXYCHLOROQUINE SULFATE 200 MG TABS Take 1 tablet by mouth Every Night. 09/07 hydroxychloroquine 03587666009 [facility] GABAPENTIN 100 MG CAPS Take 9 capsules by mouth Every Night. 08/28 gabapentin 87040006250 [facility] FOLIC ACID 1 MG TABS Take 1 tablet by mouth Daily. 02/23 folic acid 36005609952 [facility] EZETIMIBE 10 MG TABS Take 1 tablet by mouth Daily. 09/20 ezetimibe 92133198858 [facility] EZETIMIBE 10 MG TABS Take 1 tablet by mouth Every Night. 02/23 ezetimibe 90538498976 [facility] DULOXETINE HCL 60 MG CPEP Take 1 capsule by mouth Daily. 60mg and 20mg in the morning 02/23 duloxetine 90746294425 [facility] DULOXETINE HCL 20 MG CPEP Take 1 capsule by mouth Daily. 02/23 duloxetine 94987838402 [facility] CETIRIZINE HCL 10 MG TABS Take 1 tablet by mouth Daily. 02/23 cetirizine 28742802854 [facility] CEFDINIR 300 MG CAPS Take 1 capsule by mouth Every 12 (Twelve) Hours for 5 doses. Indications: Infection of the Skin and/or Soft Tissue 04/17 cefdinir 51251820718 [facility] Calcium Citrate-Vitamin D (CALCIUM D PO) Take 1 tablet by mouth Daily. 02/23 CALCIUM D PO [facility] BUSPIRONE HCL 10 MG TABS Take 1 tablet by mouth 2 (Two) Times a Day. 02/23 buspirone 77823259077 [facility] BRIMONIDINE TARTRATE 0.2 % SOLN Apply 1 drop to eye(s) as directed by provider. 06/14 brimonidine 24527512288 [facility] AZITHROMYCIN 250 MG TABS Take 1 tablet by mouth Daily. 09/07 azithromycin 73993884574 [facility] ASPIRIN LOW DOSE 81 MG TBEC Take 1 tablet by mouth Every Night. 09/07 aspirin 62171050898 [facility] Medications Administered No information available. [...] smoking status SMOK STATUS Never smoker Toba tobacco scrap sifter smoking status Plan of Care No information [...] Description Start Date HEALTHCARE SURROGATE POWER OF REALTY SPECIALIST LIVING WILL ON FILE
--- OUTSIDE RECORDS SUMMARY | 2024-10-26 13:15 | XMS_ITS | Encounter Summary ---
Author Organization Healthcare Address [address] [place] [address] Care Team Providers Care Expense Analyst Name Role Phone Alisa Kunz DO Primary Care Provider [phone] Kodi Bustos DO Unavailable [phone] Sujit Arriola MD Unavailable [phone] Sujit Reyes MD Unavailable [phone] Patricia Yañez LPN Unavailable Unavailab Zee Lr DO Unavailable [phone] Encounter Details Date Type Department Care Team [...] Recorded Patient Health Questionnaire-2 Score 0 09/08/2024 [facility] - Occupational Stress Questionnaire Answer [...] any time in the past 12 m [facility], were you homeless or living [...] any time in the past 12 m [facility], were you homeless or living [...] drink first t anselmo in the morning (EYE-ENGRAVER SET UP OPERATOR) to steady your nerves or to get rid of a hangover? 0 08/14/2024 CAGE Questionnaire Score 0 025 Utilities Answer Date Recorded In the past 12 months has th e [employer], gas, oil, or water company threatened to [...] 1:40 PM EDT Office Visit Janette Su[facility] Endocrinology [address] [place] [address] Anne-Marie Kolb, TECHNICAL COMMUNICATOR [address] [place] [address] 12/06/2024 11:20 AM EDT Office Visit [facility] Internal Medicine [address] 3rd [place] [address] Alisa Kunz DO [address] [address] 12/23/2024 4:00 PM EDT Office Visit [facility] Medicine Specialties [address], [address]nd [place] [address] Lavern Shoemaker MD [address] [place], [place] [id number] 02/02/2025 8:40 AM EST Office Visit [facility] Internal Medicine [address], [address]rd [place] [address] Alisa Kunz DO [address] [address] documented as of this encounter [...] documented as of this encounter Care Teams Expense Analyst Relationship Specialty Start Date End Date Alisa Kunz DO [address] [address] PCP - General Internal Medicine 03/13/21 Kodi Bustos DO [address] [address] Surgeon Cardiothoracic Surgery 11/06/22 Sujit Arriola MD [address] [place] [address] Consulting Physician Pulmonary Disease 11/06/22 Sujit Reyes MD [address] [place] [address] Referring Physician 12/04/22 Patricia Yañez LPN [facility] TCM Nurse 08/25/24 10/17/24 Zee Lazar DO [address] [place] [address] Resident 09/08/24 documented as of this encounter
--- OUTSIDE RECORDS SUMMARY | 2024-10-26 13:15 | XMS_ITS | Encounter Summary ---
Author Organization [facility] Address [address] [place] [address] Care Team Providers Care Hvac Design Mechanical Engineer Name Role Phone Alisa Kunz DO Primary Care Provider [phone] Kodi Bustos DO Unavailable [phone] Sujit Arriola MD Unavailable [phone] Sujit Reyes MD Unavailable [phone] Patricia Yañez LPN Unavailable Unavailab Zee Lr DO Unavailable [phone] Reason for Visit * Reason Onset Date Comments HCN Clinical Concern/Question 09/03/2024 Pl ease see note... Encounter Details Date Type Department Care Team (Late st Contact Info) Description 09/03/2024 Telephone [facility] Internal Medicine [address], 3rd [place] [address] Alisa Kunz DO [address] [place] [address] HCN Clinical Concern/Question (Please see [...] Recorded Patient Health Questionnaire-2 Score 0 09/08/2024 [facility] - [...] drink first t anselmo in the morning (EYE-VACUUM SYSTEM TESTER) to steady your nerves or to get rid of a hangover? 0 08/14/2024 CAGE Questionnaire Score 0 025 Utilities Answer Date Recorded In the past 12 months has th [employer], gas, oil, or water [employer] threatened to shut off services in your [...] Behavior (Lifetime) No 8:00 AM EDT Ashley, [place], RN documented as of this encounter Miscellaneous Notes * Telephone Encounter - Mary Guillen - 09/03/2024 11:09 AM EDT Clinical Concern/Question Reason for Call: Patient is returning missed call from social work faculty member and is asking for a call back. Best contact number: [phone] (mobile) Optimal time of day to reach [...] will receive notification of the communication/outcome via [employer]. documented in this encounter Plan of Treatment Upcoming Encounters Date Type Department Care Team (Late st Contact Info) Description 10/27/2024 1:40 PM EDT Office Visit [facility] Endocrinology [address] [place] [address] Anne-Marie Kolb L, STATISTICIAN THEORETICAL 2195 [facility] 125 [place] [address] 12/06/2024 11:20 AM EDT Office Visit [facility] Internal Medicine [address], [address]rd [place] [address] Alisa Kunz, DO [address] [place] [address] 12/23/2024 4:00 PM EDT [facility] Medicine Specialties [address], [address]nd [place] [address] Lavern Shoemaker MD [address] [place] [address] 02/02/2025 8:40 AM EST Office Visit [facility] Internal Medicine [address], 3rd [place] [address] Alisa Kunz DO [address] [place] [address] documented as of this [...] documented as of this encounter Care Teams Hvac Design Mechanical Engineer Relationship Specialty Start Date End Date Alisa Kunz DO [address] [address] PCP - General Internal Medicine 03/13/21 Kodi Bustos, [address] [address] Surgeon Cardiothoracic Surgery 11/06/22 Sujit Arriola MD [address] [place] [address] Consulting Physician Pulmonary Disease 11/06/22 Sujit Reyes MD [address] [place] [address] Referring Physician 12/04/22 Patricia Yañez LPN [facility] TCM Nurse 08/25/24 10/17/24 Zee Lazar DO [address] [place] [address] Resident 09/08/24 documented as of this encounter
--- OUTSIDE RECORDS SUMMARY | 2024-10-26 13:15 | XMS_ITS | Encounter Summary ---
Author Organization Healthcare Address [address] [place] [address] Care Team Providers Care Gold Plater Name Role Phone Alisa Kunz DO Primary Care Provider Kodi Bustos DO Unavailable [phone] Sujit Arriola MD Unavailable [phone] Sujit Reyes MD Unavailable [phone] Patricia Yañez LPN Unavailable Unavailab le Encounter Details Date Type Department Care Team (Late st Contact Info) Description 09/06/2024 Telephone [facility] Internal Medicine [address], 3[address] [place] [address] Alisa Kunz DO [address] [place] [address] Social History Tobacco Use Types [...] Recorded Patient Health Questionnaire-2 Score 0 09/08/2024 [facility] [...] drink first t anselmo in the morning (EYE-EPIC AMBULATORY ANALYSTS) to steady your nerves or to get [...] start of care. Best contact number: Other: [phone] Optimal time of day to reach caller: [...] will receive notification of the communication/outcome via [employer]. documented in this encounter Plan of Treatment Upcoming Encounters Date Type Department Care Team (Late st Contact Info) Description 10/27/2024 1:40 PM EDT Office Visit [facility] Endocrinology [address] [place] [address] Anne-Marie Kolb, COREMAKER BENCH 2195 [facility] [address] [place] [address] 12/06/2024 11:20 AM EDT Office Visit [facility] Internal Medicine [address], 3rd [place] [address] Alisa Kunz DO [address] [place] [address] 12/23/2024 4:00 PM EDT [facility] Visit [facility] Medicine Specialties [address], [address]nd [place] [address] Lavern Shoemaker MD [address] [place] [address] 02/02/2025 8:40 AM EST Office Visit [facility] Internal Medicine [address], [address]rd [place] [address] Alisa Kunz DO [address] [place] [address] documented as [...] documented as of this encounter Care Teams Gold Plater Relationship Specialty Start Date End Date Alisa Kunz DO [address] [facility] [address] [place] [address] PCP - General Internal Medicine 03/13/21 Kodi Bustos DO [address] [place] [address] Surgeon Cardiothoracic Surgery 11/06/22 Sujit Arriola MD [address] [place] [address] Consulting Physician Pulmonary Disease 11/06/22 Sujit Reyes MD [address] [place] [address] Referring Physician 12/04/22 Patricia Yañez LPN [facility] TCM Nurse 08/25/24 10/17/24 documented as of this encounter
--- OUTSIDE RECORDS SUMMARY | 2024-10-26 13:15 | XMS_ITS | Encounter Summary ---
Author Organization Healthcare Address [address] [place] [address] Care Team Providers Care Bell Hole Digger Name Role Phone Ze, Alisa Wild DO Primary Care Provider [phone] Kodi Bustos DO Unavailable [phone] Sujit Arriola MD Unavailable [phone] Sujit Reyes MD Unavailable [phone] Patricia Yañez LPN Unavailable Unavailab le Reason for Visit * Reason Comments Med Refill Encounter Details Date Type Department Care Team (Late st Contact Info) Description 09/06/2024 [facility] End[facility] [address] [place] [address] Anne-Marie Kolb, SUMO WRESTLER 2195 [facility] [address] [place] [address] Type 1 diabetes mellitus with [...] How often do you attend chur or roman catholic services? 1 to 4 [...] Recorded Patient Health Questionnaire-2 Score 0 08/04/2024 [facility] - Occupational [...] drink first t anselmo in the morning (EYE-THREAD INSPECTOR) to steady your nerves or to get rid of a hangover? 0 08/14/2024 CAGE Questionnaire Score 0 025 Utilities Answer Date Recorded In the past 12 months has th e [employer] gas, oil, or water [employer] threatened to shut off services in your [...] Description 10/27/2024 1:40 PM EDT Office Visit [facility] Endocrinology [address] [place] [address] Anne-Marie Kolb, SUMO WRESTLER [address] [facility] 125 [place] [address] 12/06/2024 11:20 AM EDT Office Visit [facility] Internal Medicine [address], 3rd [place] [address] Alisa Kunz, DO [address] [facility] 304 [place] [address] 12/23/2024 4:00 PM EDT Office Visit [facility] Medicine Specialties [address], [address]nd [place] [address] Lavern Shoemaker MD [address] [place] [address] 02/02/2025 8:40 AM EST Office Visit [facility] Internal Medicine [address], 3rd [place] [address] Alisa Kunz, DO [address] [address] documented as of this encounter [...] documented as of this encounter Care Teams Bell Hole Digger Relationship Specialty Start Date End Date Alisa Kunz DO [address] [address] PCP - General Internal Medicine 03/13/21 Kodi Bustos, DO [address] [place] [address] Surgeon Cardiothoracic Surgery 11/06/22 Sujit Arriola MD [address] [place] [address] Consulting Physician Pulmonary Disease 11/06/22 Sujit Reyes MD [address] [place] [address] Referring Physician 12/04/22 Patricia Yañez LPN [facility] TCM Nurse 08/25/24 10/17/24 documented as of this encounter
--- OUTSIDE RECORDS SUMMARY | 2024-10-26 13:15 | XMS_ITS | Encounter Summary ---
Author Organization [facility] Address [address] [place] [address] Care Team Providers Care Director Medical Safety Name Role Phone Alisa Kunz DO Primary Care Provider [phone] Kodi Bustos DO Unavailable [phone] Sujit Arriola MD Unavailable [phone] Sujit Reyes MD Unavailable [phone] Patricia Yañez LPN Unavailable Unavailab le Reason for Visit * Reason Onset Date Comments Med Refill 09/06/2024 Encounter Details Date Type Department Care Team (Late st Contact Info) Description 09/06/2024 Refill [facility] Endocrinology [address] [place] [address] Anne-Marie Kolb, CONTINUITY READER 2[address] [facility] [address] [place] [address] Type 1 diabetes mellitus with [...] first t anselmo in the morning (EYE-VP AD SALES WEST) to steady your nerves or to get rid of a hangover? 0 08/14/2024 CAGE Questionnaire Score 0 025 Utilities Answer Date Recorded In the past 12 months has th [employer], gas, oil, or water [employer] threatened to shut off services in your [...] [facility] Endocrinology [address] [place] [address] Anne-Marie Kolb, CONTINUITY READER [address] [place] [address] 12/06/2024 11:20 AM EDT Office Visit [facility] Internal Medicine [address], [address]rd [place] [address] Alisa Kunz, DO [address] [place] [address] 12/23/2024 4:00 PM EDT Office Visit [facility] Medicine Specialties [address]nd [place] [address] Lavern Shoemaker MD [address] [place], [place] [address] 02/02/2025 8:40 AM EST Office Visit [facility] Internal Medicine [address], [address]rd [place] [address] Alisa Kunz, DO [address] [address] documented as of this encounter Visit Diagnoses Diagnosis Type 1 diabetes mellitus with other specified complication (CMS/LTAC, [facility]IN [facility]) Dyslipidemia Other and unspecified hyperlipidemia documented in [...] as of this encounter Care Teams Director Medical Safety Relationship Specialty Start Date End Date Alisa Kunz DO [address] [facility] [address] [place] [address] PCP - General Internal Medicine 03/13/21 Kodi Bustos, DO [address] [place] [address] Surgeon Cardiothoracic Surgery 11/06/22 Sujit Arriola MD [address] [place] [address] Consulting Physician Pulmonary Disease 11/06/22 Sujit Reyes MD [address] [facility] [address] [place] [address] Referring Physician 12/04/22 Patricia Yañez LPN [facility] TCM Nurse 08/25/24 10/17/24 documented as of this encounter
--- OUTSIDE RECORDS SUMMARY | 2024-10-26 13:15 | XMS_ITS | Encounter Summary ---
Author Organization Healthcare Address [address] [place] [address] Care Team Providers Care Manager City Name Role Phone ZeAlisa willett Torri DO Primary Care Provider [phone] Kodi Bustos DO Unavailable [phone] Sujit Arriola MD Unavailable [phone] Sujit Reyes MD Unavailable [phone] Patricia Yañez LPN Unavailable Unavailab Zee Lr DO Unavailable [phone] Reason for Referral * Consultation (Routine) - Authorized Specialty Diagnoses / Procedures Referred By Contac t Referred To Contact Pulmonary Disease Diagnoses Pleural effusion on right Art Olmos MD [address] [place] [address] Phone: tel: fax: Referral ID Status Reason Start Date Expiration Date Visits Requested Visits Authorized [id number] Authorized Specialty Services Required 09/08/2024 03/10/2026 1 1 Encounter Details Date Type Department Care Team (Late st Contact Info) Description 09/08/2024 Orders Only [facility] Medicine Specialties [address], [address]nd [place] [address] Lavern Shoemaker MD [address] [place] [address] Pleural effusion on right (Primary Dx) Social [...] Recorded Patient Health Questionnaire-2 Score 0 09/08/2024 [facility] Occupat ional Health - Occupational Stress [...] in the [facility], [facility] or living [...] in the past 12 m [facility], were you homeless or living in a residential (including now)? No 09/13/2024 CAGE ASSESSMENT Answer [...] drink first t anselmo in the morning (EYE-BOTTLE FEEDER) to steady your nerves or to [...] 09/13/2024 8:00 AM EDT Lucia Rosenthal, EVITA 2. Non-Specific Active Suicidal Thoughts (Past 1 Month) No 09/13/2024 8:00 AM EDT Lucia Rosenthal, EVITA 6. Suicidal Behavior (Lifetime) No 09/13/2024 8:00 AM EDT Lucia Rosenthal, RN documented as of this encounter Plan of Treatment Upcoming Encounters Date Type Department Care Team (Late st Contact Info) Description 10/27/2024 1:40 PM EDT Office Visit [facility] Endocrinology [address] [place] [address] Anne-Marie Kolb, HELMET BINDER 2[address] [facility] [address] [place] [address] 12/06/2024 11:20 AM EDT Office Visit [facility] Internal Medicine [address], 3rd [place] [address] Alisa Kunz, DO [address] [facility] [address] [place] [address] 12/23/2024 4:00 PM EDT Office Visit [facility] Medicine Specialties [address], [address]nd [place] [address] Lavern Shoemaker MD [address] [place] [address] 02/02/2025 8:40 AM EST Office Visit [facility] Internal Medicine [address], 3rd [place] [address] Alisa Kunz, DO [address] [place] [address] Scheduled Referrals Name Type Priority [...] as of this encounter Care Teams Manager City Relationship Specialty Start Date End Date Alisa Kunz DO [address] [place] [address] PCP - General Internal Medicine 03/13/21 Kodi Bustos DO [address] [address] Surgeon Cardiothoracic Surgery 11/06/22 Sujit Arriola MD [address] [place] [address] Consulting Physician Pulmonary Disease 11/06/22 Sujit Reyes MD [address] [place] [address] Referring Physician 12/04/22 Patricia Yañez LPN [facility]- [facility] TCM Nurse 08/25/24 10/17/24 Zee Lazar DO [address] [place], [place] [id number] Resident 09/08/24 documented as of this encounter
--- OUTSIDE RECORDS SUMMARY | 2024-10-26 13:15 | XMS_ITS | Encounter Summary ---
Author Organization Healthcare Address [address] [place] [address] Care Team Providers Care Primary Care Pediatrician Name Role Phone Alisa Kunz DO Primary Care Provider [phone] Kodi Bustos DO Unavailable [phone] Sujit Arriola MD Unavailable [phone] Sujit Reyes MD Unavailable [phone] Patricia Yañez LPN Unavailable Unavailab Zee Lr DO Unavailable [phone] Encounter Details Date Type Department Care Team (Late st Contact Info) Description 09/09/2024 Results Follow-Up [facility] Internal Medicine [address]rd [place] [address] Zee Lazar DO [address] [place], [place] [phone] Social History Tobacco Use Types Packs/Day Years [...] drink first t anselmo in the morning (EYE-SYSTEMS NAVIGATOR) to steady your nerves or to get rid of a hangover? 0 08/14/2024 CAGE Questionnaire Score 0 025 Utilities Answer Date Recorded In the past 12 months has th e [employer], gas, oil, or water company threatened to [...] Description 10/27/2024 1:40 PM EDT Office Visit [facility] Endocrinology [address] [place] [address] Anne-Marie Kolb, STEEL PLATE PRINTER [address] [place] [address] 12/06/2024 11:20 AM EDT Office Visit [facility] Internal Medicine [address], [address]rd [place] [address] Alisa Kunz, DO [address] [facility] [address] [place] [address] 12/23/2024 4:00 PM EDT Office Visit [facility] Medicine Specialties [address], [address] [place] [address] Lavern Shoemaker MD [address] [place], [place] [id number] 02/02/2025 8:40 AM EST Office Visit [facility] Internal Medicine [address], [address] [place] [address] Alisa Kunz, DO [address] [facility] 304 [place] [address] documented as of this encounter [...] documented as of this encounter Care Teams Primary Care Pediatrician Relationship Specialty Start Date End Date Alisa Kunz DO [address] [place] [address] PCP - General Internal Medicine 03/13/21 Kodi Bustos DO [address] [address] Surgeon Cardiothoracic Surgery 11/06/22 Sujit Arriola MD [address] [place] [address] Consulting Physician Pulmonary Disease 11/06/22 Sujit Reyes MD [address] [place] [address] Referring Physician 12/04/22 Patricia Yañze LPN [facility]- PAC PED[facility]ICS CL[facility] TCM Nurse 08/25/24 10/17/24 Zee Lazar DO [address] [place], [place] [address] Resident 09/08/24 documented as of this encounter
--- OUTSIDE RECORDS SUMMARY | 2024-10-26 13:15 | XMS_ITS | Encounter Summary ---
Author Organization [facility] Address [address] [place] [address] Care Team Providers Care Community Relations Police Lieutenant Name Role Phone Alisa Kunz DO Primary Care Provider Kodi Bustos DO Unavailable [phone] Sujit Arriola MD Unavailable [phone] Sujit Reyes MD Unavailable [phone] Patricia Yañez LPN Unavailable Unavailab Zee Lr DO Unavailable [phone] Encounter Details Date Type Department Care Team (Late st Contact Info) Description 09/06/2024 Telephone [facility] Medicine Specialties [address], 2nd [place] [address] [place] [address] Social History Tobacco Use Types Packs/Day Years [...] week 08/30/2022 How often do you attend [facility] or confucianist services? 1 to 4 times [...] Recorded Patient Health Questionnaire-2 Score 0 09/08/2024 [facility] of Occupat ional Health - Occupational Stress [...] drink first t anselmo in the morning (EYE-PV INSTALLER TECH) to steady your nerves or to get rid of a hangover? 0 08/14/2024 CAGE Questionnaire Score 0 025 Utilities Answer Date Recorded In the past 12 months has th e [employer], gas, oil, or water company threatened to [...] speak to someone in the meantime CB: [phone] documented in this encounter Plan of Treatment Upcoming Encounters Date Type Department Care Team (Late st Contact Info) Description 10/27/2024 1:40 PM EDT [facility] [address] [place] [address] Anne-Marie Kolb L, SCIENTIST ELECTRONICS [address] [place] [address] 12/06/2024 11:20 AM EDT Office Visit [facility] Internal Medicine [address], 3rd [place] [address] Alisa Kunz, DO [address] [facility] [address] [place] [address] 12/23/2024 4:00 PM EDT Office Visit [facility] Medicine Specialties [address], 2[address] [place] [address] Lavern Shoemaker MD [address] [place], [place] [id number] 02/02/2025 8:40 AM EST Office Visit [facility] Internal Medicine [address], 3rd [place] [address] Alisa Kunz, DO [address] [facility] [address] [place] [address] documented as of this encounter [...] documented as of this encounter Care Teams Community Relations Police Lieutenant Relationship Specialty Start Date End Date Alisa Kunz DO [address] [place] [address] PCP - General Internal Medicine 03/13/21 Kodi Bustos, DO [address] [phone] Surgeon Cardiothoracic Surgery 11/06/22 Sujit Arriola MD [address] [place] [address] Consulting Physician Pulmonary Disease 11/06/22 Sujit Reyes MD [address] [place] [address] Referring Physician 12/04/22 Patricia Yañez LPN [facility] TCM Nurse 08/25/24 10/17/24 Zee Lazar DO [address] [place], [place] [id number] Resident 09/08/24 documented as of this encounter
--- OUTSIDE RECORDS SUMMARY | 2024-10-26 13:15 | XMS_ITS | Encounter Summary ---
Author Organization [facility] Address [address] [place] [address] Care Team Providers Care Bar Pilot Name Role Phone Alisa Kunz Torri DO Primary Care Provider [phone] Kodi Bustos DO Unavailable [phone] Sujit Arriola MD Unavailable [phone] Sujit Reyes MD Unavailable [phone] Patricia Yañez LPN Unavailable Unavailab le Encounter Details Date Type Department Care Team (Late st Contact Info) Description 09/07/2024 Telephone [facility] Medicine Specialties [address], [address]nd [place] [address] [place] [address] Social History Tobacco Use Types Packs/Day Years [...] 08/30/2022 How often do you attend [facility] or jainism services? 1 to 4 [...] Health Questionnaire-2 Score 0 09/08/2024 [facility] of Occupat ional [...] living in a snf (including now)? No 08/25/2024 CAGE ASSESSMENT Answer [...] drink first t anselmo in the morning (EYE-POP SINGER) to steady your nerves or to get [...] She would like to speak to her blurb writer - but she would like someone different from Dr. Osborne CB: [phone] documented in this encounter Plan of Treatment Upcoming Encounters Date Type Department Care Team (Late st Contact Info) Description 10/27/2024 1:40 PM EDT Office Visit [facility] Endocrinology [address] [place] [address] Anne-Marie Kolb L, DOCUMENT CONTROLLER [address] [place] [address] 12/06/2024 11:20 AM EDT Office Visit [facility] Internal Medicine [address], 3rd [place] [address] Alisa Kunz, DO [address] [facility] [address] [place] [address] 12/23/2024 4:00 PM EDT Office Visit [facility] Medicine Specialties [address], 2nd [place] [address] Lavern Shoemaker MD [address] [place] [address] 02/02/2025 8:40 AM EST Office Visit [facility] Internal Medicine [address], 3rd [place] [address] Alisa Kunz DO [address] [address] documented as of this encounter [...] documented as of this encounter Care Teams Bar Pilot Relationship Specialty Start Date End Date Alisa Kunz DO [address] [facility] [address] [place] [address] PCP - General Internal Medicine 03/13/21 Kodi Bustos, DO [address] [address] Surgeon Cardiothoracic Surgery 11/06/22 Sujit Arriola MD [address] [place] [address] Consulting Physician Pulmonary Disease 11/06/22 Sujit Reyes MD [address] [place] [address] Referring Physician 12/04/22 Patricia Yañez LPN [facility] TCM Nurse 08/25/24 10/17/24 documented as of this encounter
--- OUTSIDE RECORDS SUMMARY | 2024-10-26 13:15 | XMS_ITS | Encounter Summary ---
Author Organization [facility] Address [address] [place] [address] Care Team Providers Care Senior Oracle Dba Name Role Phone Alisa Kunz DO Primary Care Provider Kodi Bustos DO Unavailable [phone] Sujit Arriola MD Unavailable [phone] Sujit Reyes MD Unavailable [phone] Patricia Yañez LPN Unavailable Unavailab Zee Lr DO Unavailable [phone] Reason for Visit * Reason Onset Date Comments HCN - Patient Message 09/08/2024 Encounter Details Date Type Department Care Team (Late st Contact Info) Description 09/08/2024 Telephone [facility] Internal Medicine [address], 3rd [place] [address] Alisa Kunz DO [address] [place] [address] HCN - Patient Message Social [...] often do you attend chur ch or restoration services? 1 to 4 times [...] any time in the past 12 m [facility], were you homeless or [...] any time in the past 12 m [facility], were you homeless or [...] drink first t anselmo in the morning (EYE-BODY SHOP FLOORPERSON) to steady your nerves or to get rid of a hangover? 0 08/14/2024 CAGE Questionnaire Score 0 025 Utilities Answer Date Recorded In the past 12 months has th [employer], gas, oil, or water [employer] threatened to shut off services in [...] optimal time of day to reach caller: [phone] Note: Please do not reply to this [...] 1:40 PM EDT Office Visit Janette Su[facility] Endocrinology [address] [place] [address] Anne-Marie Kolb, POT BUILDER [address] [place] [address] 12/06/2024 11:20 AM EDT Office Visit [facility] Internal Medicine [address], 3rd [place] [address] Alisa Kunz DO [address] [address] 12/23/2024 4:00 PM EDT Office Visit [facility] Medicine Specialties [address], 2nd [place] [address] Lavern Shoemaker MD [address] [place], [place] [id number] 02/02/2025 8:40 AM EST Office Visit [facility] Internal Medicine [address], 3rd [place] [address] Alisa Kunz DO [address] [address] documented as of this encounter [...] as of this encounter Care Teams Senior Oracle Dba Relationship Specialty Start Date End Date Alisa Kunz DO [address] [address] PCP - General Internal Medicine 03/13/21 Kodi Bustos, DO [address] [address] Surgeon Cardiothoracic Surgery 11/06/22 Sujit Arriola MD [address] [place] [address] Consulting Physician Pulmonary Disease 11/06/22 Sujit Reyes MD [address] [place] [address] Referring Physician 12/04/22 Patricia Yañez LPN [facility] TCM Nurse 08/25/24 10/17/24 Zee Lazar DO [address] [place] [address] Resident 09/08/24 documented as of this encounter
--- OUTSIDE RECORDS SUMMARY | 2024-10-26 13:15 | XMS_ITS | Encounter Summary ---
Author Organization [facility] Address [address] [place] [address] Care Team Providers Care Ab Initio Etl Developer Name Role Phone Alisa Kunz Torri DO Primary Care Provider [phone] Kodi Bustos DO Unavailable [phone] Sujit Arriola MD Unavailable [phone] Sujit Reyes MD Unavailable [phone] Patricia Yañez LPN Unavailable Unavailab Zee Lr DO Unavailable [phone] Encounter Details Date Type Department Care Team (Late st Contact Info) Description 09/07/2024 Telephone [facility] Medicine Specialties [address], [address] [place] [address] Sadiq Osborne, SHANA [address] [place] [id number] Social History Tobacco Use Types Packs/Day Years [...] drink first t anselmo in the morning (EYE-NEUROSURGICAL PHYSICIAN ASSISTANT) to steady your nerves or to get rid of a hangover? 0 08/14/2024 CAGE Questionnaire Score 0 025 Utilities Answer Date Recorded In the past 12 months has th [employer], gas, oil, or water [employer] threatened to shut off services in your [...] her mouth. Please call. Best contact number: [phone] (mobile) Optimal time of day to reach caller: ANYTIME Additional comments/information from caller: None Note: Please do not reply to this message. Follow-up communication and further actions as a result of this message need to be communicated with the patient directly, if the patient is not active onMyChart. If the patient is active on MyChart, they will receive notification of the communication/outcome via [facility]. documented in this encounter Plan of Treatment Upcoming Encounters Date Type Department Care Team (Late st Contact Info) Description 10/27/2024 1:40 PM EDT Office Visit [facility] Endocrinology [address] [place] [address] Anne-Marie Kolb L, ALGOLOGY TEACHER [address] [facility] [address] [place] [address] 12/06/2024 11:20 AM EDT Office Visit [facility] Internal Medicine [address], 3rd [place] [address] Alisa Kunz, DO [address] [place] [address] 12/23/2024 4:00 PM EDT Office Visit [facility] Medicine Specialties [address], 2nd [place] [address] Lavern Shoemaker MD [address] [place] [address] 02/02/2025 8:40 AM EST Office Visit [facility] Internal Medicine [address], 3rd [place] [address] Alisa Kunz DO [address] [facility] [address] [place] [address] documented as of this encounter [...] documented as of this encounter Care Teams Ab Initio Etl Developer Relationship Specialty Start Date End Date Alisa Kunz DO [address] [address] PCP - General Internal Medicine 03/13/21 Kodi Bustos, [address] [address] Surgeon Cardiothoracic Surgery 11/06/22 Sujit Arriola MD [address] [facility]00 [place] [address] Consulting Physician Pulmonary Disease 11/06/22 Sujit Reyes MD [address] [place] [address] Referring Physician 12/04/22 Patricia Yañez LPN [facility] TCM Nurse 08/25/24 10/17/24 Zee Lazar DO [address] [place] [address] Resident 09/08/24 documented as of this encounter
--- OUTSIDE RECORDS SUMMARY | 2024-10-26 13:16 | XMS_ITS ---
Author Organization [facility] Address [address] [place] [address] Care Team Providers Care Heat Sealing Machine Operator Name Role Phone Alisa Kunz Torri DO Primary Care Provider [phone] Kodi Bustos DO Unavailable [phone] Sujit Arriola MD Unavailable [phone] Sujit Reyes MD Unavailable [phone] Zee Lazar DO Unavailable [phone] Transitional Care Management Status:Closed (Closed) Start date:09/17/2024 Enrollment date:09/17/2024 Enrollment reason:Identified using hospital discharge data End date:10/17/2024 Close reason:Patient graduated Overview This episode type is for outpatient care managers enrolling patients in the [facility] Transitional Care Management program. Continued Care and Services Coordination
--- OUTSIDE RECORDS SUMMARY | 2024-10-26 13:16 | XMS_ITS | Referral Summary ---
Author Organization [facility] ([place], [place], [place], [place]) Address [address] [place] [address] Care Team Providers Care Interviewing Clerk Name Role Phone Unavailable Primary Care [...]
--- OUTSIDE RECORDS SUMMARY | 2024-10-26 13:16 | XMS_ITS | Encounter Summary ---
Author Organization [facility] Address [address] [place] [address] Care Team Providers Care Coffee Urn Attendant Name Role Phone Alisa Kunz DO Primary Care Provider Kodi Bustos DO Unavailable [phone] Sujit Arriola MD Unavailable [phone] Sujit Reyes MD Unavailable [phone] Patricia Yañez LPN Unavailable Unavailab Zee Lr DO Unavailable [phone] Reason for Visit * Reason Onset Date Comments HCN - Patient Message 10/11/2024 questions Encounter Details Date Type Department Care Team (Late st Contact Info) Description 10/11/2024 Telephone [facility] Otolaryngology [address], [address]rd [place] [address] Chris Pepe MD [address] [place] [address] HCN - Patient Message (questions) [...] in a long term (including now)? No 09/17/2024 CAGE ASSESSMENT Answer [...] first t anselmo in the morning (EYE-SUPERVISOR DRIED YEAST) to steady your nerves or to get rid of a hangover? 0 08/14/2024 CAGE Questionnaire Score 0 025 Utilities Answer Date Recorded In the past 12 months has th e [employer], gas, oil, or water [employer] threatened to shut off services in your [...] optimal time of day to reach caller: [phone] Note: Please do not reply to this [...] Office Visit [facility] Endocrinology [address] [place] [address] Anne-Marie Kolb L, GUIDE DELEGATE [address] [place] [address] 12/06/2024 11:20 AM EDT Office Visit [facility] Internal Medicine [address], 3rd [place] [address] Alisa Kunz, DO [address] [place] [address] 12/23/2024 4:00 PM EDT Office Visit [facility] Medicine Specialties [address], [address] [place] [address] Lavern Shoemaker MD [address] [place] [address] 02/02/2025 8:40 AM EST Office Visit [facility] Internal Medicine [address], 3rd [place] [address] Alisa Kunz, DO [address] [place] [address] documented as of this encounter [...] documented as of this encounter Care Teams Coffee Urn Attendant Relationship Specialty Start Date End Date Alisa Kunz DO [address] [place] [address] PCP - General Internal Medicine 03/13/21 Kodi Bustos, [address] [address] Surgeon Cardiothoracic Surgery 11/06/22 Sujit Arriola MD [address] [place] [address] Consulting Physician Pulmonary Disease 11/06/22 Sujit Reyes MD [address] [place] [address] Referring Physician 12/04/22 Patricia Yañez LPN [facility] TCM Nurse 08/25/24 10/17/24 Zee Lazar DO [address] [place], [place] [phone] Resident 09/08/24 documented as of this encounter
--- OUTSIDE RECORDS SUMMARY | 2024-10-26 13:16 | XMS_ITS | Encounter Summary ---
Author Organization [facility] Address [address] [place] [address] Care Team Providers Care Environmental Construction Engineer Name Role Phone Alisa Kunz DO Primary Care Provider Kodi Bustos DO Unavailable [phone] Sujit Arriola MD Unavailable [phone] Sujit Reyes MD Unavailable [phone] Zee Lazar DO Unavailable [phone] Encounter Details Date Type Department Care Team (Late st Contact Info) Description 10/18/2024 Telephone [facility] Internal Medicine [address], [address] [place] [address] Alisa Kunz DO [address] [place] [address] Social History Tobacco Use Types [...] drink first t anselmo in the morning (EYE-MACHINE ADJUSTER LEADER CASE TRIM) to steady your nerves or to get rid of a hangover? 0 08/14/2024 CAGE Questionnaire Score 0 025 Utilities Answer Date Recorded In the past 12 months has th [employer], gas, oil, or water company threatened to [...] Telephone Encounter - Alisa Kunz DO - 10/19/2024 8:20 AM EDT She already knows, all good. Thank you!! * Telephone Encounter - Alisa Kunz DO - 10/18/2024 6:16 PM EDT Spoke with Michelle: Technical difficulties with the [employer], she thinks may be due to no WiFi connection: She was on the video for about 40 minutes, it did not connect on our end, marked as no-show. Overall she is feeling better after her most recent hospitalization. She has an appointment with [facility] to talk about a pleural drain on October 28. She is having a difficult time with her lupus symptoms (oral ulcers, sores). ENT has nothing else to offer per their note, patient is waiting to hear back from ENT (she called last week). I will reach out to Dr. Yee to see if they can get her in for follow-up within the next 1-2 months. Schedule patient 12/06/2024 at 11:20 AM as an overbook for follow-up in [facility]. * Telephone Encounter - Alisa Kunz DO [...] on until after 8. Best contact number: [phone] (mobile) Optimal time of day to reach caller: ANYTIME Additional comments/information from caller: THOMPSON Note: Please do not reply to this message. Follow-up communication and further actions as a result of this message need to be communicated with the patient directly, if the patient is not active onMyChart. If the patient is active on MyChart, they will receive notification of the communication/outcome via [email or web address]. documented in this encounter Plan of Treatment Upcoming Encounters Date Type Department Care Team (Late st Contact Info) Description 10/27/2024 1:40 PM EDT Office Visit Janette Suazo [facility] Endocrinology [address] [place] [address] Anne-Marie Kolb, CYCLE COUNTER [address] [place] [address] 12/06/2024 11:20 AM EDT Office Visit [facility] Internal Medicine [address] [place] [address] Alisa Kunz, DO [address] [place] [address] 12/23/2024 4:00 PM EDT Office Visit [facility] Medicine Specialties [address]nd [place] [address] Lavern Shoemaker MD [address] [place], [place] [id number] 02/02/2025 8:40 AM EST Office Visit [facility] Internal Medicine [address], [address] [place] [address] Alisa Kunz, DO [address] [place] [address] documented as of this encounter [...] as of this encounter Care Teams Environmental Construction Engineer Relationship Specialty Start Date End Date Alisa Kunz DO [address] [place] [address] PCP - General Internal Medicine 03/13/21 Kodi Bustos DO [address] [address] Surgeon Cardiothoracic Surgery 11/06/22 Sujit Arriola MD [address] [place] [address] Consulting Physician Pulmonary Disease 11/06/22 Sujit Reyes MD [address] [place] [address] Referring Physician 12/04/22 Zee Lazar DO [address] [place], [place] [id number] Resident 09/08/24 documented as of this encounter
--- OUTSIDE RECORDS SUMMARY | 2024-10-26 13:16 | XMS_ITS | Encounter Summary ---
Author Organization [facility] Address [address] [place] [address] Care Team Providers Care Corporate Administrator Name Role Phone Alisa Kunz DO Primary Care Provider [phone] Kodi Bustos DO Unavailable [phone] Sujit Arriola MD Unavailable [phone] Sujit Reyes MD Unavailable [phone] Patricia Yañez LPN Unavailable Unavailab Zee Lr DO Unavailable [phone] Reason for Visit * Reason Comments Med Refill Encounter Details Date Type Department Care Team (Late st Contact Info) Description 10/05/2024 Refill [facility] Internal Medicine [address]rd [place] [address] Alisa Kunz DO [address] [place] [address] Social History Tobacco Use Types [...] How often do you attend chur or faith services? 1 to 4 times [...] Recorded Patient Health Questionnaire-2 Score 0 09/08/2024 [facility] of Occupat ional Health - [...] drink first t anselmo in the morning (EYE-SCREWDOWN OPERATOR) to steady your nerves or to get rid of a hangover? 0 08/14/2024 CAGE Questionnaire Score 0 025 Utilities Answer Date Recorded In the past 12 months has th e [employer], gas, oil, or water [employer] threatened to shut off services in your [...] Description 10/27/2024 1:40 PM EDT Office Visit [facility] Endocrinology [address] [place] [address] Anne-Marie Kolb, OCCUPATIONAL HEALTH AND SAFETY MANAGER [address] [place] [address] 12/06/2024 11:20 AM EDT Office Visit [facility] Internal Medicine [address], 3rd [place] [address] Alisa Kunz, DO [address] [facility] [address] [place] [address] 12/23/2024 4:00 PM EDT Office Visit [facility] Medicine Specialties [address] [place] [address] Lavern Shoemaker MD [address] [place] [address] 02/02/2025 8:40 AM EST Office Visit [facility] Internal Medicine [address] 3[address] [place] [address] Alisa Kunz, DO [address] [address] documented as of this encounter [...] documented as of this encounter Care Teams Corporate Administrator Relationship Specialty Start Date End Date Alisa Kunz DO [address] [address] PCP - General Internal Medicine 03/13/21 Kodi Bustos, DO [address] [place] [address] Surgeon Cardiothoracic Surgery 11/06/22 Sujit Arriola MD [address] [place] [address] Consulting Physician Pulmonary Disease 11/06/22 Sujit Reyes MD [address] [place] [address] Referring Physician 12/04/22 Patricia Yañez LPN [facility] TCM Nurse 08/25/24 10/17/24 Zee Lazar DO [address] [place] [address] Resident 09/08/24 documented as of this encounter
--- OUTSIDE RECORDS SUMMARY | 2024-10-26 13:16 | XMS_ITS | Encounter Summary ---
Author Organization Healthcare Address [address] [place] [address] Care Team Providers Care Clinical Office Technician Name Role Phone Alisa Kunz DO Primary Care Provider [phone] Kodi Bustos DO Unavailable [phone] Sujit Arriola MD Unavailable [phone] Sujit Reyes MD Unavailable [phone] Patricia Yañez LPN Unavailable Unavailab Zee Lr DO Unavailable [phone] Encounter Details Date Type Department Care Team [...] How often do you attend chur or adventist services? 1 to 4 times [...] Health Questionnaire-2 Score 0 09/08/2024 [facility] of Occupat ional [facility] - Occupational Stress Questionnaire Answer [...] in the past 12 m [facility], were you homeless or living [...] in the past 12 m [facility], were you homeless or living [...] first t anselmo in the morning (EYE-CHIEF CLIENT OFFICER) to steady your nerves or to get rid of a hangover? 0 08/14/2024 CAGE Questionnaire Score 0 025 Utilities Answer Date Recorded In the past 12 months has th e [employer], gas, oil, or water company threatened to [...] Description 10/27/2024 1:40 PM EDT Office Visit [facility] [address] [place] [address] Anne-Marie Kolb, HAND COREMAKER [address] [place] [address] 12/06/2024 11:20 AM EDT Office Visit [facility] Internal Medicine [address], 3rd [place] [address] Alisa Kunz DO [address] [place] [address] 12/23/2024 4:00 PM EDT Office Visit [facility] Medicine Special[facility] [address], [address]nd [place] [address] Lavern Shoemaker MD [address] [place] [address] 02/02/2025 8:40 AM EST Office Visit [facility] Internal Medicine [address], 3rd [place] [address] Alisa Kunz, [address] [address] documented as of this encounter [...] as of this encounter Care Teams Clinical Office Technician Relationship Specialty Start Date End Date Alisa Kunz DO [address] [address] PCP - General Internal Medicine 03/13/21 Kodi Bustos DO [address] [place] [address] Surgeon Cardiothoracic Surgery 11/06/22 Sujit Arriola MD [address] [place] [address] Consulting Physician Pulmonary Disease 11/06/22 Sujit Reyes MD [address] [place] [address] Referring Physician 12/04/22 Patricia Yañez LPN [facility] TCM Nurse 08/25/24 10/17/24 Zee Lazar DO [address] [place] [id number] Resident 09/08/24 documented as of this encounter
--- OUTSIDE RECORDS SUMMARY | 2024-10-26 13:16 | XMS_ITS | Encounter Summary ---
Author Organization [facility] Address [address] [place] [address] Care Team Providers Care Insole Cementer Name Role Phone Alisa Kunz DO Primary Care Provider Kodi Bustos DO Unavailable [phone] Sujit Arriola MD Unavailable [phone] Sujit Reyes MD Unavailable [phone] Patricia Yañez LPN Unavailable Unavailab le Reason for Visit * Reason Onset Date Comments HCN Clinical Concern/Question 08/30/2024 Encounter Details Date Type Department Care Team (Late st Contact Info) Description 08/30/2024 Telephone [facility] Internal Medicine [address], 3[address] [place] [address] Alisa Kunz DO [address] [place] [address] HCN Clinical Concern/Question Social History [...] How often do you attend chur or jewish services? 1 to 4 times [...] first t anselmo in the morning (EYE-LICENSED PRACTICAL NURSE) to steady your nerves or to get rid of a hangover? 0 08/14/2024 CAGE Questionnaire Score 0 025 Utilities Answer Date Recorded In the past 12 months has th e [employer], gas, oil, or water [employer] threatened to shut off services in your [...] in the computer [facility] Faxed order and got confirmation * Telephone Encounter - Sofia Hernadez - 08/30/2024 2:42 PM EDT Clinical Concern/Question Reason for Call: pt has called [facility] today, was told they dont have an order in but have her pcp send order for home health to them. Please call pt if you have any questions. thx Best contact number: [phone] (home) Optimal time of day to reach caller: ANYTIME Additional comments/information from caller: None Note: Please do not reply to this message. Follow-up communication and further actions as a result of this message need to be communicated with the patient directly, if the patient is not active onMyChart. If the patient is active on MyChart, they will receive notification of the communication/outcome via Codacyhart. documented in this encounter Plan of Treatment Upcoming Encounters Date Type Department Care Team (Late st Contact Info) Description 10/27/2024 1:40 PM EDT [facility] [address] [place] [address] Anne-Marie Kolb, METAL FURNITURE REPAIRER 2[address] [facility] [address] [place] [address] 12/06/2024 11:20 AM EDT Office Visit [facility] Internal Medicine [address], [address] [place] [address] Alisa Kunz, DO [address] [address] 12/23/2024 4:00 PM EDT Office Visit [facility] Medicine Specialties [address], [address] [place] [address] Lavern Shoemaker MD [address] [place] [address] 02/02/2025 8:40 AM EST Office Visit [facility] Internal Medicine [address], [address] [place] [address] Alisa Kunz, DO [address] [address] documented as of this encounter [...] documented as of this encounter Care Teams Insole Cementer Relationship Specialty Start Date End Date Alisa Kunz DO [address] [place] [address] PCP - General Internal Medicine 03/13/21 Kodi Bustos DO [address] [address] Surgeon Cardiothoracic Surgery 11/06/22 Sujit Arriola MD [address] [place] [address] Consulting Physician Pulmonary Disease 11/06/22 Sujit Reyes MD [address] [place] [address] Referring Physician 12/04/22 Patricia Yañez LPN [facility] TCM Nurse 08/25/24 10/17/24 documented as of this encounter
--- OUTSIDE RECORDS SUMMARY | 2024-10-26 13:16 | XMS_ITS | Encounter Summary ---
Author Organization Healthcare Address [address] [place] [address] Care Team Providers Care Campus Security Director Name Role Phone Alisa Kunz DO Primary Care Provider [phone] Kodi Bustos DO Unavailable [phone] Sujit Arriola MD Unavailable [phone] Sujit Reyes MD Unavailable [phone] Patricia Yañez LPN Unavailable Unavailab Zee Lr DO Unavailable [phone] Encounter Details Date Type Department Care Team (Late st Contact Info) Description 09/09/2024 Telephone [facility] Medicine Specialties [address] [place] [phone] Shannen Emmanuel RN CH-VASCULAR & INTERVENTIONAL RADIOLOGY [...] How often do you attend [facility] or restorationist services? 1 to 4 times [...] Recorded Patient Health Questionnaire-2 Score 0 09/08/2024 [facility] of Occupat ional Health - Occupational Stress [...] first t anselmo in the morning (EYE-EFFICIENCY MINER BLASTING) to steady your nerves or to get [...] 10/27/2024 1:40 PM EDT Office Visit [facility] Endocrinology [address] [place] [address] Anne-Marie Kolb, SERVER SYSTEMS ADMINISTRATOR [address] [place] [address] 12/06/2024 11:20 AM EDT Office Visit [facility] Internal Medicine [address], [address] [place] [address] Alisa Kunz, DO [address] [place] [address] 12/23/2024 4:00 PM EDT Office Visit [facility] Medicine Specialties [address], [address] [place] [address] Lavern Shoemaker MD [address] [place] [address] 02/02/2025 8:40 AM EST Office Visit [facility] Internal Medicine [address], 3[address] [place] [address] Alisa Kunz, DO [address] [place] [address] documented as of this encounter [...] documented as of this encounter Care Teams Campus Security Director Relationship Specialty Start Date End Date Alisa Kunz DO [address] [place] [address] PCP - General Internal Medicine 03/13/21 Kodi Bustos, DO [address] [address] Surgeon Cardiothoracic Surgery 11/06/22 Sujit Arriola MD [address] [place] [address] Consulting Physician Pulmonary Disease 11/06/22 Sujit Reyes MD [address] [place] [address] Referring Physician 12/04/22 Patricia Yañez LPN [facility] TCM Nurse 08/25/24 10/17/24 Zee Lazar DO [address] [place], [place] [id number] Resident 09/08/24 documented as of this encounter
--- OUTSIDE RECORDS SUMMARY | 2024-10-26 13:16 | XMS_ITS | Encounter Summary ---
Author Organization [facility] Address [address] [place] [address] Care Team Providers Care Warehouse Shift Supervisor Name Role Phone Jackson Malave MD Primary Care Provider [phone] Alisa Kunz DO Primary Care Provider [phone] Anu Sen RN Unavailable [phone] HatLaura navas CONTENT DESIGNER Unavailable Unavailable Balwinder Vale Unavailable Unavailable Kodi Bustos DO Unavailable [phone] Sujit Arriola MD Unavailable [phone] HatLaura navas LPN Unavailable Unavailable Sujit Reyes MD Unavailable [phone] Zully Caldwell LPN Unavailable Unavailable HatLaura navas LPN Unavailable Unavailable HatLaura navas LPN Unavailable Unavailable Tanya Powell Unavailable [phone] Sarah Reyes CONTENT DESIGNER Unavailable Unavailable Ekaterina Gómez Unavailable Unavailable Zully Caldwell LPN Unavailable Unavailable Ekaterina Gómez Unavailable Unavailable Patricia Yañez CONTENT DESIGNER Unavailable Unavailab Zee Lr DO Unavailable [phone] Reason for Visit * Reason Comments Med Refill Encounter Details Date Type Department Care Team (Late st Contact Info) Description 02/12/2021 Refill [facility] Internal Medicine [address], 3rd [place] [address] Jackson Malave MD [address] [facility] 140 [place], [place] [phone] Social History Tobacco Use Types Packs/Day Years [...] Visit [facility] Endocrinology [address] [place] [address] Anne-Marie Kolb L, FACILITY TECHNICIAN [address] [facility] 125 [place] [address] 12/06/2024 11:20 AM EDT Office Visit [facility] Internal Medicine [address], 3rd [place] [address] Alisa Kunz, DO [address] [place] [address] 12/23/2024 4:00 PM EDT Office Visit [facility] [address], [address]nd [place] [address] Lavern Shoemaker MD [address] [place] [phone] 02/02/2025 8:40 AM EST Office Visit [facility] Internal Medicine [address], 3rd [place] [address] Alisa Kunz, DO [address] [place] [address] documented as of this encounter [...] as of this encounter Care Teams Warehouse Shift Supervisor Relationship Specialty Start Date End Date Jackson Malave MD [address] [place] [address] PCP - General 07/21/20 03/12/21 Alisa Kunz DO [address] [place] [address] PCP - General Internal Medicine 03/13/21 Anu Sen RN VALUE-BASED TRANSFORMATION PROGRAM [place] Registered Nurse Internal Medicine 08/22/21 09/24/21 Laura Albright LPN VALUE-BASED [place] [address] TCM Nurse 08/30/22 09/27/22 Balwinder Vale [address] [place] [address] Community Health Worker Sole Cementer 08/30/22 09/06/22 Kodi Bustos, DO [address] [phone] Surgeon Cardiothoracic Surgery 11/06/22 Sujit Arriola MD [address] [place] [address] Consulting Physician Pulmonary Disease 11/06/22 Laura Albright LPN VALUE-BASED [place]FORMATION [place] [address] TCM Nurse 12/02/22 01/01/23 Sujit Reyes MD [address] [facility] [address] [place] [address] Referring Physician 12/04/22 Zully Caldwell LPN VALUE-BASED [place] [address] TCM Nurse 02/03/23 03/05/23 Laura Albright LPN VALUE-BASED [place] [place] [address] TCM Nurse 08/05/23 09/04/23 Laura Albright LPN VALUE-BASED [place] [address] TCM Nurse 02/17/24 03/18/24 Tanya Powell [address] [place] [address] 125 [place] [address] Registered Nurse 04/02/24 07/01/24 Sarah Reyes LPN TCM Nurse 05/27/24 06/26/24 Ekaterina Gómez Power Ballast Machine Operator Sole Cementer 07/14/24 07/14/24 Zully Caldwell LPN VALUE-BASED [place] [address] TCM Nurse 07/16/24 08/15/24 Ekaterina Gómez Power Ballast Machine Operator Sole Cementer 08/16/24 08/16/24 Patricia Yañez LPN [facility] TCM Nurse 08/25/24 10/17/24 Zee Lazar DO [address] [place] [address] Resident 09/08/24 documented as of this encounter
--- OUTSIDE RECORDS SUMMARY | 2024-10-26 13:16 | XMS_ITS | Encounter Summary ---
Author Organization [facility] Address [address] [place] [address] Care Team Providers Care Paleology Professor Name Role Phone Alisa Kunz DO Primary Care Provider [phone] Kodi Bustos DO Unavailable [phone] Sujit Arriola MD Unavailable [phone] Sujit Reyes MD Unavailable [phone] Patricia Yañez LPN Unavailable Unavailab Zee Lr DO Unavailable [phone] Encounter Details Date Type Department Care Team (Late st Contact Info) Description 09/02/2024 Telephone [facility] Internal Medicine [address]rd [place] [address] Alisa Kunz DO [address] [place] [address] Social History Tobacco Use Types [...] Recorded Patient Health Questionnaire-2 Score 0 09/08/2024 [facility] of Occupat ional Health - [...] drink first t anselmo in the morning (EYE-FENCE LABORER) to steady your nerves or to get rid of a hangover? 0 08/14/2024 CAGE Questionnaire Score 0 025 Utilities Answer Date Recorded In the past 12 months has th [employer], gas, oil, or water [employer] threatened to shut off services in [...] Clinical Concern/Question Reason for Call: Cece from [facility] calling to let PCP they are starting the patient on Friday and wanted her to be aware. Stated if you have any questions to call back at [phone]. Thank you! Best contact number: [phone] Optimal time of day to reach caller: ANYTIME Additional comments/information from caller: None Note: Please do not reply to this message. Follow-up communication and further actions as a result of this message need to be communicated with the patient directly, if the patient is not active onMyChart. If the patient is active on MyChart, they will receive notification of the communication/outcome via Kalibrrhart. documented in this encounter Plan of Treatment Upcoming Encounters Date Type Department Care Team (Late st Contact Info) Description 10/27/2024 1:40 PM EDT Office Visit [facility] Endocrinology [address] [place] [address] Anne-Marie Kolb, C D STRIPPER 2195 [facility] 125 [place] [address] 12/06/2024 11:20 AM EDT Office Visit [facility] Internal Medicine [address]rd [place] [address] Alisa Kunz DO [address] [place] [address] 12/23/2024 4:00 PM EDT Office Visit [facility] Medicine Specialties [address], [address]nd [place] [address] Lavern Shoemaker MD [address] [place] [address] 02/02/2025 8:40 AM EST Office Visit [facility] Internal Medicine [address], [address]rd [place] [address] Alisa Kunz DO [address] [facility] [address] [place] [address] documented as of this encounter [...] documented as of this encounter Care Teams Paleology Professor Relationship Specialty Start Date End Date Alisa Kunz DO [address] [address] PCP - General Internal Medicine 03/13/21 Kodi Bustos DO [address] [place] [address] Surgeon Cardiothoracic Surgery 11/06/22 Sujit Arriola MD [address] [place] [address] Consulting Physician Pulmonary Disease 11/06/22 Sujit Reyes MD [address] [place] [address] Referring Physician 12/04/22 Patricia Yañez LPN [facility] TCM Nurse 08/25/24 10/17/24 Zee Lazar DO [address] [place] [address] Resident 09/08/24 documented as of this encounter
--- OUTSIDE RECORDS SUMMARY | 2024-10-26 13:16 | XMS_ITS | Encounter Summary ---
Author Organization Healthcare Address [address] [place] [address] Care Team Providers Care Coding Technician Name Role Phone Alisa Kunz DO Primary Care Provider [phone] Kodi Bustos DO Unavailable [phone] Sujit Arriola MD Unavailable [phone] uSjit Reyes MD Unavailable [phone] Patricia Yañez LPN Unavailable Unavailab Zee Lr DO Unavailable [phone] Encounter Details Date Type Department Care Team [...] Recorded Patient Health Questionnaire-2 Score 0 09/08/2024 [facility] of Occupat ional [facility] - Occupational Stress Questionnaire Answer Date Recorded [...] the past [address] [facility], were you homeless or living in a [...] the past [address] [facility], were you homeless or living in a chcf (including now)? No 09/13/2024 CAGE ASSESSMENT Answer [...] drink first t anselmo in the morning (EYE-BAG PRESSER) to steady your nerves or to get rid of a hangover? 0 08/14/2024 CAGE Questionnaire Score 0 025 Utilities Answer Date Recorded In the past 12 months has e [employer], gas, oil, or water [employer] threatened to shut off services in your [...] Description 10/27/2024 1:40 PM EDT [facility] [address] [place] [address] Anne-Marie Kolb, POLICE CADET [address] [place] [address] [place] [address] 12/06/2024 11:20 AM EDT Office Visit [facility] Internal Medicine [address] 3rd [place] [address] Alisa Kunz DO [address] [place] [address] 12/23/2024 4:00 PM EDT Office Visit [facility] Medicine Specialties [address] [place] [address] Lavern Shoemaker MD [address] [place] [address] 02/02/2025 8:40 AM EST Office Visit [facility] Internal Medicine [address] [place] [address] Alisa Kunz DO [address] [address] documented as of this encounter [...] documented as of this encounter Care Teams Coding Technician Relationship Specialty Start Date End Date Alisa Kunz DO [address] [address] PCP - General Internal Medicine 03/13/21 Kodi Bustos DO [address] [place] [address] Surgeon Cardiothoracic Surgery 11/06/22 Sujit Arriola MD [address] [place] [address] Consulting Physician Pulmonary Disease 11/06/22 Sujit Reyes MD [address] [place] [address] Referring Physician 12/04/22 Patricia Yañez LPN [facility] TCM Nurse 08/25/24 10/17/24 Zee Lazar DO [address] [place] [address] Resident 09/08/24 documented as of this encounter
--- OUTSIDE RECORDS SUMMARY | 2024-10-26 13:16 | XMS_ITS | Encounter Summary ---
Author Organization Healthcare Address [address] [place] [address] Care Team Providers Care Director Internal Communications Name Role Phone ZeNitin willettgricel Wild DO Primary Care Provider [phone] Kodi Bustso DO Unavailable [phone] Sujit Arriola MD Unavailable [phone] Sujit Reyes MD Unavailable [phone] Patricia Yañez BACKEND TESTER Unavailable Unavailab Zee Lr DO Unavailable [phone] Encounter Details Date Type Department Care Team (Late st Contact Info) Description 09/03/2024 Telephone [facility] Endocrinology [address] [place] [address] Anne-Marie Kolb L, MANAGER ACTION [address] [facility] [address] [place] [address] Social History Tobacco Use Types [...] drink first t anselmo in the morning (EYE-RAIL TRANSPORTATION OPERATOR) to steady your nerves or to get rid of a hangover? 0 08/14/2024 CAGE Questionnaire Score 0 025 Utilities Answer Date Recorded In the past 12 months has th [employer], gas, oil, or water [employer] threatened to shut off services in your [...] Not at all 09/08/2024 11:19 AM JANET hSashank Burrows Patient Health Questionnaire -9 Score 0 [...] No 025 8:00 AM EDT Sunny Ramirez, EVTIA 2. Non-Specific Active Suici dillon Thoughts (Past [...] she has been taking a supplement called EyeScribes with Cinanamon and Tumeric and other ingredients. [...] EDT Office Visit [facility] Endocrinology [address] [place] [address] Anne-Marie Kolb, MANAGER ACTION [address] [place] [address] 12/06/2024 11:20 AM EDT Office Visit [facility] Internal Medicine [address] [place] [address] Alisa Kunz, DO [address] [place] [address] 12/23/2024 4:00 PM EDT Office Visit [facility] Medicine Specialties [address] [place] [address] Lavern Shoemaker MD [address] [place] [address] 02/02/2025 8:40 AM EST Office Visit [facility] Internal Medicine [address] [place] [address] Alisa Kunz, DO [address] [place] [address] documented as of this encounter [...] as of this encounter Care Teams Director Internal Communications Relationship Specialty Start Date End Date Alisa Kunz DO [address] [place] [address] PCP - General Internal Medicine 03/13/21 Kodi Bustos DO [address] [place] [address] Surgeon Cardiothoracic Surgery 11/06/22 Sujit Arriola MD [address] [place] [address] Consulting Physician Pulmonary Disease 11/06/22 Sujit Reyes MD [address] [place] [address] Referring Physician 12/04/22 Patricia Yañez LPN [facility] TCM Nurse 08/25/24 10/17/24 Zee Lazar DO [address] [place] [address] Resident 09/08/24 documented as of this encounter
--- OUTSIDE RECORDS SUMMARY | 2024-10-26 13:16 | XMS_ITS | Encounter Summary ---
Author Organization Healthcare Address [address] [place] [address] Care Team Providers Care Auto Repair Shop Manager Name Role Phone Alisa Kunz DO Primary Care Provider [phone] Kodi Bustos DO Unavailable [phone] Sujit Arriola MD Unavailable [phone] Sujit Reyes MD Unavailable [phone] Patricia Yañez LPN Unavailable Unavailab Zee Lr DO Unavailable [phone] Encounter Details Date Type Department Care Team (Late st Contact Info) Description 10/14/2024 [facility] Medicine Specialties [address], [address] [place] [address] Cristian Zimmer MD [address] [place] [address] Social History Tobacco Use Types [...] often do you attend chur ch or scientology services? 1 to 4 times [...] 09/08/2024 [facility] of Occupat ional [facility] - Occupational Stress Questionnaire Answer Date Recorded [...] drink first t anselmo in the morning (EYE-VICE PRESIDENT MISSION INTEGRATION) to steady your nerves or to get rid of a hangover? 0 08/14/2024 CAGE Questionnaire Score 0 025 Utilities Answer Date Recorded In the past 12 months has th e [employer], gas, oil, or water company threatened to [...] 1:40 PM EDT Office Visit [facility] Endocrinology [address] [place] [address] Anne-Marie Kolb, HOT BLASTER [address] [place] [address] 12/06/2024 11:20 AM EDT Office Visit [facility] Internal Medicine [address], [address]rd [place] [address] Alisa Kunz, DO [address] [place] [address] 12/23/2024 4:00 PM EDT Office Visit [facility] Medicine Specialties [address] [place] [address] Lavern Shoemaker MD [address] [place], [place] [id number] 02/02/2025 8:40 AM EST Office Visit [facility] Internal Medicine [address], [address]rd [place] [address] Alisa Kunz, DO [address] [place] [address] documented as of this encounter [...] as of this encounter Care Teams Auto Repair Shop Manager Relationship Specialty Start Date End Date Alisa Kunz DO [address] [place] [address] PCP - General Internal Medicine 03/13/21 Kodi Bustos DO [address] [address] Surgeon Cardiothoracic Surgery 11/06/22 Sujit Arriola MD [address] [place] [address] Consulting Physician Pulmonary Disease 11/06/22 Sujit Reyes MD [address] [place] [address] Referring Physician 12/04/22 Patricia Yañez LPN [facility] TCM Nurse 08/25/24 10/17/24 Zee Lazar DO [address] [place], [place] [phone] Resident 09/08/24 documented as of this encounter
--- OUTSIDE RECORDS SUMMARY | 2024-10-26 13:16 | XMS_ITS | Clinical Summary ---
Author Organization [employer] ([place], [place], [place], [place]) Address [address] [place] [address] Care Team Providers Care Recordist Chief Name Role Phone Unavailable Primary Care Provider [...]
--- OUTSIDE RECORDS SUMMARY | 2024-10-26 13:16 | XMS_ITS | Encounter Summary ---
Author Organization Healthcare Address [address] [place] [address] Care Team Providers Care Videogame Designer Name Role Phone Alisa Kunz DO Primary Care Provider [phone] Kodi Bustos DO Unavailable [phone] Sujit Arriola MD Unavailable [phone] Sujit Reyes MD Unavailable [phone] Patricia Yañez LPN Unavailable Unavailab Zee Lr DO Unavailable [phone] Encounter Details Date Type Department Care Team [...] drink first t anselmo in the morning (EYE-TELETYPE TECHNICIAN) to steady your nerves or to [...] on one occasion? Never 10/14/2024 11:04 AM JANET [employer] documented as of this encounter Plan of Treatment Upcoming Encounters Date Type Department Care Team (Late st Contact Info) Description 10/27/2024 1:40 PM EDT Office Visit [facility] Endocrinology [address] [place] [address] Anne-Marie Kolb, AUDIO VISUAL PRODUCTION SPECIALIST [address] [place] [address] 12/06/2024 11:20 AM EDT Office Visit [facility] Internal Medicine [address], [address]rd [place] [address] Alisa Kunz, DO [address] [facility] [address] [place] [address] 12/23/2024 4:00 PM EDT Office Visit [facility] Medicine Specialties [address], [address] [place] [address] Lavern Shoemaker MD [address] [place] [address] 02/02/2025 8:40 AM EST Office Visit [facility] Internal Medicine [address], [address]rd [place] [address] Alisa Kunz, DO [address] [address] documented as of this encounter [...] documented as of this encounter Care Teams Videogame Designer Relationship Specialty Start Date End Date Alisa Kunz DO [address] [address] PCP - General Internal Medicine 03/13/21 Kdoi Bustos DO [address] [place] [address] Surgeon Cardiothoracic Surgery 11/06/22 Sujit Arriola MD [address] [place] [address] Consulting Physician Pulmonary Disease 11/06/22 Sujit Reyes MD [address] [place] [address] Referring Physician 12/04/22 Patricia Yañez LPN [facility] TCM Nurse 08/25/24 10/17/24 Zee Lazar DO [address] [place] [address] Resident 09/08/24 documented as of this encounter
--- OUTSIDE RECORDS SUMMARY | 2024-10-26 13:16 | XMS_ITS | Encounter Summary ---
Author Organization [facility] Address [address] [place] [address] Care Team Providers Care Software Database Architect Name Role Phone Alisa Boyer DO Primary Care Provider [phone] Kodi Bustos DO Unavailable [phone] Sujit Arriola MD Unavailable [phone] Sujit Reyes MD Unavailable [phone] Zee Lazar DO Unavailable [phone] Reason for Visit * Reason Comments Med Refill Encounter Details Date Type Department Care Team (Late st Contact Info) Description 10/18/2024 Refill [facility] Internal Medicine [address], [address]rd [place] [address] Alisa Boyer DO [address] [place] [address] Social History Tobacco Use Types [...] often do you attend chur ch or christianity services? 1 to 4 times [...] any time in the past 12 m [facility], were you homeless or [...] any time in the past 12 m [facility], were you homeless or [...] drink first t anselmo in the morning (EYE-TELEPHONE SALES REPRESENTATIVE) to steady your nerves or to get rid of a hangover? 0 08/14/2024 CAGE Questionnaire Score 0 025 Utilities Answer Date Recorded In the past 12 months has th [employer], gas, oil, or water [employer] threatened to shut off services in your [...] encounter Miscellaneous Notes * Telephone Encounter - Madison Atwood RN - 10/20/2024 3:25 PM EDT Called patient and advised her lasix prescription was called in. She said thanks. * Telephone Encounter - Alisa Boyer DO - 10/20/2024 2:35 PM EDT Sent new script; thank you! * Addendum Note - Alisa Boyer DO - 10/20/2024 2:35 PM EDTAddended by: ALISA BOYER on: 10/20/2024 02:35 PM Modules accepted: Orders * Telephone Encounter - Alisa Boyer DO - 10/18/2024 6:11 PM EDT Spoke with Michelle: Technical difficulties with the Tele[employer], she thinks may be due to no WiFi connection: She was on the video for about 40 minutes, it did not connect on our end, marked as no-show. Overall she is feeling better after her most recent hospitalization. She has an appointment with [facility] to talk about a pleural drain on [...] AM as an overbook for follow-up in IMG. documented in this encounter Plan of Treatment Upcoming Encounters Date Type Department Care Team (Late st Contact Info) Description 10/27/2024 1:40 PM EDT Office Visit [facility] Endocrinology [address] [place] [address] Anne-Marie Kolb, COMMUNITY SERVICE PATROL OFFICER [address] [facility] [address] [place] [address] 12/06/2024 11:20 AM EDT Office Visit [facility] Internal Medicine [address], 3rd [place] [address] Alisa Boyer DO [address] [place] [address] 12/23/2024 4:00 PM EDT [facility] Medicine Specialties [address], [address] [place] [address] Lavern Shoemaker MD [address] [place] [address] 02/02/2025 8:40 AM EST Office Visit [facility] Internal Medicine [address], 3rd [place] [address] Alisa Boyer DO [address] [place] [address] documented as of this encounter [...] documented as of this encounter Care Teams Software Database Architect Relationship Specialty Start Date End Date Alisa Boyer DO [address] [address] PCP - General Internal Medicine 03/13/21 Kodi Bustos DO [address] [place] [address] Surgeon Cardiothoracic Surgery 11/06/22 Sujit Arriola MD [address] [place] [address] Consulting Physician Pulmonary Disease 11/06/22 Sujit Reyes MD [address] [place] [address] Referring Physician 12/04/22 Zee Lazar DO [address] [place] [address] Resident 09/08/24 documented as of this encounter
--- OUTSIDE RECORDS SUMMARY | 2024-10-26 13:16 | XMS_ITS | Encounter Summary ---
Author Organization Healthcare Address [address] [place] [address] Care Team Providers Care Test Engineering Technician Name Role Phone Alisa Kunz DO Primary Care Provider [phone] Kodi Bustos DO Unavailable [phone] Sujit Arriola MD Unavailable [phone] Sujit Reyes MD Unavailable [phone] Patricia Yañez LPN Unavailable Unavailab Zee Lr DO Unavailable [phone] Encounter Details Date Type Department Care Team [...] 0 09/08/2024 [facility] of Occupat ional [facility] - Occupational Stress Questionnaire Answer Date [...] drink first t anselmo in the morning (EYE-TOP CARRIER) to steady your nerves or to get rid of a hangover? 0 08/14/2024 CAGE Questionnaire Score 0 025 Utilities Answer Date Recorded In the past 12 months has e [employer] gas, oil, or water [employer] threatened to shut off services in your [...] Description 10/27/2024 1:40 PM EDT Office Visit [facility] Endocrinology [address] [place] [address] Anne-Marie Kolb, STUDENT ACCOUNTS COORDINATOR [address] [place] [address] 12/06/2024 11:20 AM EDT Office Visit [facility] Internal Medicine [address], 3rd [place] [address] Alisa Kunz DO [address] [place] [address] 12/23/2024 4:00 PM EDT Office Visit [facility] Medicine Specialties [address], [address]nd [place] [address] Lavern Shoemaker MD [address] [place] [address] 02/02/2025 8:40 AM EST Office Visit [facility] Internal Medicine [address], 3rd [place] [address] Alisa Kunz DO [address] [address] documented as of this encounter [...] documented as of this encounter Care Teams Test Engineering Technician Relationship Specialty Start Date End Date Alisa Kunz DO [address] [address] PCP - General Internal Medicine 03/13/21 Kodi Bustos DO [address] [place] [address] Surgeon Cardiothoracic Surgery 11/06/22 Sujit Arriola MD [address] [place] [address] Consulting Physician Pulmonary Disease 11/06/22 Sujit Reyes MD [address] [place] [address] Referring Physician 12/04/22 Patricia Yañez LPN [facility] TCM Nurse 08/25/24 10/17/24 Zee Lazar DO [address] [place] [address] Resident 09/08/24 documented as of this encounter
--- OUTSIDE RECORDS SUMMARY | 2024-10-26 13:16 | XMS_ITS | Encounter Summary ---
Author Organization Healthcare Address [address] [place] [address] Care Team Providers Care Plant Maintenance Supervisor Name Role Phone Alisa Kunz DO Primary Care Provider [phone] Kodi Bustos DO Unavailable [phone] Sujit Arriola MD Unavailable [phone] Sujit Reyes MD Unavailable [phone] Patricia Yañez LPN Unavailable Unavailab Zee Lr DO Unavailable [phone] Encounter Details Date Type Department Care Team [...] How often do you attend chur or alevism services? 1 to 4 times [...] Recorded Patient Health Questionnaire-2 Score 0 09/08/2024 [facility] of Occupat ional [facility] - Occupational [...] drink first t anselmo in the morning (EYE-LAST GREASER) to steady your nerves or to get rid of a hangover? 0 08/14/2024 CAGE Questionnaire Score 0 025 Utilities Answer Date Recorded In the past 12 months has th e [employer], gas, oil, or water company threatened to [...] Description 10/27/2024 1:40 PM EDT Office Visit [facility] Endocrinology [address] [place] [address] Anne-Marie Kolb, DISABILITY AIDE [address] [place] [address] 12/06/2024 11:20 AM EDT Office Visit [facility] Internal Medicine [address], 3rd [place] [address] Alisa Kunz, DO [address] [address] 12/23/2024 4:00 PM EDT Office Visit [facility] Medicine Specialties [address], [address] [place] [address] Lavern Shoemaker MD [address] [place], [place] [id number] 02/02/2025 8:40 AM EST Office Visit [facility] Internal Medicine [address], 3rd [place] [address] Alisa Kunz, DO [address] [address] documented as of this encounter [...] documented as of this encounter Care Teams Plant Maintenance Supervisor Relationship Specialty Start Date End Date Alisa Kunz DO [address] [address] PCP - General Internal Medicine 03/13/21 Kodi Bustos, DO [address] [address] Surgeon Cardiothoracic Surgery 11/06/22 Sujit Arriola MD [address] [place] [address] Consulting Physician Pulmonary Disease 11/06/22 Sujit Reyes MD [address] [place] [address] Referring Physician 12/04/22 Patricia Yañez LPN [facility] TCM Nurse 08/25/24 10/17/24 Zee Lazar DO [address] [place] [address] Resident 09/08/24 documented as of this encounter
--- OUTSIDE RECORDS SUMMARY | 2024-10-26 13:16 | XMS_ITS | Encounter Summary ---
Author Organization Healthcare Address [address] [place] [address] Care Team Providers Care Asian Studies Professor Name Role Phone Alisa Kunz DO Primary Care Provider [phone] Kodi Bustos DO Unavailable [phone] Sujit Arriola MD Unavailable [phone] Sujit Reyes MD Unavailable [phone] Patricia Yañez LPN Unavailable Unavailab Zee Lr DO Unavailable [phone] Encounter Details Date Type Department Care Team [...] any clubs o r organizations such as jew groups, unions, fraternal or athletic groups, or [...] 09/08/2024 [facility] of Occupat ional [facility] - Occupational Stress Questionnaire Answer [...] drink first t anselmo in the morning (EYE-STREET OPENINGS INSPECTOR) to steady your nerves or to [...] 1:40 PM EDT Office Visit [facility] Endocrinology [address] [place] [address] Anne-Marie Kolb L, TITLE CURATIVE SPECIALIST [address] [facility] 125 [place] [address] 12/06/2024 11:20 AM EDT Office Visit [facility] Internal Medicine [address], 3rd [place] [address] Alisa Kunz, [address] [place] [address] 12/23/2024 4:00 PM EDT Office Visit [facility] Medicine Specialties [address], [address] [place] [address] Lavern Shoemaker MD [address] [place] [address] 02/02/2025 8:40 AM EST Office Visit [facility] Internal Medicine [address], 3rd [place] [address] Alisa Kunz DO [address] [facility] [address] [place] [address] documented as of this encounter [...] documented as of this encounter Care Teams Asian Studies Professor Relationship Specialty Start Date End Date Alisa Kunz DO [address] [address] PCP - General Internal Medicine 03/13/21 Kodi Bustos DO [address] [place] [address] Surgeon Cardiothoracic Surgery 11/06/22 Sujit Arriola MD [address] [place] [address] Consulting Physician Pulmonary Disease 11/06/22 Sujit Reyes MD [address] [place] [address] Referring Physician 12/04/22 Patricia Yañez, TERRITORY SALES MANAGER [facility] TCM Nurse 08/25/24 10/17/24 Zee Lazar DO [address] [place] [address] Resident 09/08/24 documented as of this encounter
--- OUTSIDE RECORDS SUMMARY | 2024-10-26 13:16 | XMS_ITS | Encounter Summary ---
Author Organization [employer] ([place], [place], [place], [place]) Address [address] [place] [address] Care Team Providers Care Digital Media Analyst Name Role Phone Unavailable Primary Care Provider Unavailabl e Encounter Details Date Type Department Care Team (Late st Contact Info) Description 08/21/2021 Transcribed Document [facility] [place] [address] ProviderNessa MD [address] [place] [address] Social History Tobacco Use Types [...] a Rank I in Education from the [facility]. 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 She is with two daughters. Ms. Torres does not currently participate in outpatient counseling. She previously attended outpatient counseling at [facility]. She is prescribed psychopharmacological therapy by Evelio Long M.D. at [facility]. She denied current suicidal ideation, plan or intent. She denied prior suicidal attempts. She endorsed a history of passive suicidal ideation during her thirties and forties, although she denied having a specific plan or intent at that time. She reported two prior inpatient psychiatric admissions during her thirties or forties at the [facility] in [place] [i.e. she believes it was the [facility]], for depression with suicidal ideation. Ms. Torres [...] prescribed by Evelio Long M.D., psychiatrist at [facility]. 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 I discussed this with her today. [...] CPAP therapy. This note was dictated using [employer] voice recognition software. Cc: Alisa Kunz DO. documented in this encounter Plan of Treatment Not on file documented as of this encounter Visit Diagnoses Not on filedocumented in this encounter
--- OUTSIDE RECORDS SUMMARY | 2024-10-26 13:16 | XMS_ITS | Encounter Summary ---
Author Organization [facility] Address [address] [place] [address] Care Team Providers Care Quality Assurance Inspector Name Role Phone Alisa Kunz DO Primary Care Provider [phone] Kodi Bustos DO Unavailable [phone] Sujit Arriola MD Unavailable [phone] Sujit Reyes MD Unavailable [phone] Patricia Yañez LPN Unavailable Unavailab Zee Lr DO Unavailable [phone] Encounter Details Date Type Department Care Team (Late st Contact Info) Description 09/09/2024 Telephone [facility] Medicine Specialties [address] [place] [address] [place] [address] Social History Tobacco Use Types Packs/Day Years [...] you attend [facility] or roman catholic services? 1 to 4 [...] Recorded Patient Health Questionnaire-2 Score 0 09/08/2024 [facility] of Occupat ional Health - Occupational Stress [...] drink first t anselmo in the morning (EYE-PROFESSIONAL SERVICES SPECIALIST) to steady your nerves or to [...] having to go through the ER CB: [phone] to reach daughter Madyson - patient is with her in the room at the time of the call documented in this encounter Plan of Treatment Upcoming Encounters Date Type Department Care Team (Late st Contact Info) Description 10/27/2024 1:40 PM EDT Office Visit [facility] Endocrinology [address] [place] [address] Anne-Marie Kolb, STUDENT COUNSELOR [address] [place] [address] 12/06/2024 11:20 AM EDT Office Visit [facility] Internal Medicine [address] 3rd [place] [address] Alisa Kunz, DO [address] [place] [address] 12/23/2024 4:00 PM EDT Office Visit [facility] Medicine Specialties [address] [place] [address] Lavern Shoemaker MD [address] [place], [place] [id number] 02/02/2025 8:40 AM EST Office Visit [facility] Internal Medicine [address]rd [place] [address] Alisa Kunz, DO [address] [facility] [address] [place] [address] documented as of this encounter [...] documented as of this encounter Care Teams Quality Assurance Inspector Relationship Specialty Start Date End Date Alisa Kunz DO [address] [place] [address] PCP - General Internal Medicine 03/13/21 Kodi Bustos DO [address] [address] Surgeon Cardiothoracic Surgery 11/06/22 Sujit Arriola MD [address] [place] [address] Consulting Physician Pulmonary Disease 11/06/22 Sujit Reyes MD [address] [place] [address] Referring Physician 12/04/22 Patricia Yañez LPN [facility] TCM Nurse 08/25/24 10/17/24 Zee Lazar DO [address] [place], [place] [phone] Resident 09/08/24 documented as of this encounter
--- OUTSIDE RECORDS SUMMARY | 2024-10-26 13:16 | XMS_ITS | Encounter Summary ---
Author Organization [facility] Address [address] [place] [address] Care Team Providers Care Torpedo Worker Name Role Phone ZeAlisa willett Torri DO Primary Care Provider [phone] Kodi Bustos DO Unavailable [phone] Sujit Arriola MD Unavailable [phone] Sujit Reyes MD Unavailable [phone] Zee Lazar DO Unavailable [phone] Encounter Details Date Type Department Care Team [...] Questionnaire-2 Score 0 09/08/2024 [facility] - Occupational [...] first t anselmo in the morning (EYE-COMPUTER TAPE LIBRARIAN) to steady your nerves or to get rid of a hangover? 0 08/14/2024 CAGE Questionnaire Score 0 025 Utilities Answer Date Recorded In the past 12 months has th e [employer], gas, oil, or water company threatened to [...] Description 10/27/2024 1:40 PM EDT Office Visit [facility] Endocrinology [address] [place] [phone] Anne-Marie Kolb L, CISCO NETWORK ARCHITECT 2195 [facility] 125 [place] [address] 12/06/2024 11:20 AM EDT Office Visit [facility] Internal Medicine [address]rd [place] [address] Alisa Kunz, [address] [place] [address] 12/23/2024 4:00 PM EDT Office Visit [facility] [address], [address] [place] [address] Lavern Shoemaker MD [address] [place], [place] [phone] 02/02/2025 8:40 AM EST Office Visit [facility] Internal Medicine [address] [place] [address] Alisa Kunz DO [address] [place] [address] documented as of this encounter [...] documented as of this encounter Care Teams Torpedo Worker Relationship Specialty Start Date End Date Alisa Kunz DO [address] [facility] [address] [place] [address] PCP - General Internal Medicine 03/13/21 Kodi Bustos, DO [address] [place] [address] Surgeon Cardiothoracic Surgery 11/06/22 Sujit Arriola MD [address] [place] [address] Consulting Physician Pulmonary Disease 11/06/22 Sujit Reyes MD [address] [place] [address] Referring Physician 12/04/22 Zee Lazar DO [address] [place], [place] [id number] Resident 09/08/24 documented as of this encounter
--- OUTSIDE RECORDS SUMMARY | 2024-10-26 13:17 | XMS_ITS | Encounter Summary ---
[facility] Organization [facility] Address [address] [place] [address] Care Team Providers Care Budget Technician Name Role Phone Alisa Kunz Primary Care Provider +1- [phone] Encounter Details Date Type Department Care Team (Late st Contact Info) Description 09/16/2024 Prep for Surgery [facility] ORDERS ONLY [address] [place] [address] Peg Nails PAEsthelaC [address] [facility] [address] [place] [address] Social History Tobacco Use Types [...] Visit [facility] CARDIOLOGY [address] [place] [address] [address] Sujit Reyes MD 1720 [facility] [address] [place] [address] 01/19/2025 1:45 PM EST Office Visit [facility] CARDIOLOGY [address] [facility] [address] [place] [address] Naveen Velasquez MD [address] [facility] [address] [address] [place] [address] documented as of this encounter Visit Diagnoses Not on filedocumented in this encounter Care Teams Budget Technician Relationship Specialty Start Date End Date Alisa Kunz DO [address] [facility] [address] [place], [place] [address] PCP - General Internal Medicine 04/26/21 documented as of this encounter
--- OUTSIDE RECORDS SUMMARY | 2024-10-26 13:17 | XMS_ITS | Encounter Summary ---
Author Organization [facility] Address [address] [place] [address] Care Team Providers Care Domestic Violence Counselor Name Role Phone Alisa Kunz Primary Care Provider +1- [phone] Encounter Details Date Type Department Care Team [...] Description 12/02/2024 3:30 PM EDT Office Visit [facility] CARDIOLOGY [address] [place] [address] Sujit Reyes MD [address]20 [facility] [address] [place] [address] 01/19/2025 1:45 PM EST Office Visit [facility] CARDIOLOGY 1720 [facility] [address] [place] [address] Naveen Velasquez MD 1720 [facility] [address] E [address] [place] [address] documented as of this encounter Visit Diagnoses Not on filedocumented in this encounter Care Teams Domestic Violence Counselor Relationship Specialty Start Date End Date Alisa Kunz DO [address] [place], [place] [id number] PCP - General Internal Medicine 04/26/21 documented as of this encounter
--- OUTSIDE RECORDS SUMMARY | 2024-10-26 13:17 | XMS_ITS | Encounter Summary ---
Author Organization [facility] ystem Address [address] [place] [address] Care Team Providers Care Wide Area Network Administrator Name Role Phone Alisa Kunz Primary Care Provider +1- [phone] Reason for Visit * Reason Onset Date Comments Results 09/28/2024 Encounter Details Date Type Department Care Team (Late st Contact Info) Description 09/28/2024 Telephone [facility] CARDIOLOGY [address]20 [facility] [address] [place] [address] Sujit Reyes MD 1720 [facility] Bldg E [facility] 400 [place] [address] Results Social History Tobacco Use [...] Felipe Relationship: Self Best call back number: [phone] What is the best time to reach [...] Office Visit [facility]IOLOGY [address] [facility] [place] [address] Sujit Reyes MD [address] [place], [place] [address] 01/19/2025 1:45 PM EST Office Visit [facility] CARDIOLOGY [address] [place] [address] Naveen Velasquez MD [address] [place] [id number] documented as of this encounter Visit Diagnoses Not on filedocumented in this encounter Care Teams Wide Area Network Administrator Relationship Specialty Start Date End Date Alisa Kunz DO 830 [facility] 304 [place] [id number] PCP - General Internal Medicine 04/26/21 documented as of this encounter
--- OUTSIDE RECORDS SUMMARY | 2024-10-26 13:17 | XMS_ITS | Encounter Summary ---
Author Organization [facility] ystem Address [address] [place] [address] Care Team Providers Care Continuity Tester Name Role Phone Alisa Kunz Primary Care Provider +1- [phone] Reason for Visit * Reason Onset Date Comments DR VELASQUEZ -CARDIOVERSION 07/30/2024 Encounter Details Date Type Department Care Team (Late st Contact Info) Description 07/30/2024 Telephone [facility] CARDIOLOGY 1720 [facility] 400 [place] [address] Naveen Velasquez MD 1720 [facility] E [address] [place] [id number] VELASQUEZ -CARDIOVERSION Social History Tobacco Use [...] 07/2023 Potentially Unsafe Housing Conditions Not on luias e 02/12/2024 Disabilities Answer Date Recorded Difficulty [...] going to have an EKG gone at [facility] today for rhythm determination. EKG order faxed to [phone]. Her records from are on your desk [...] Felipe Relationship: Self Best call back number: [phone] What was the call regarding: PT CALLED [...] Felipe Relationship: Self Best call back number: [phone] What is the best time to reach [...] HOSPITAL CARDIOLOGY [address] [place] [address] Sujit Reyes MD [address] [place] [address] 01/19/2025 1:45 PM EST Office Visit [facility] CARDIOLOGY [address] [place] [address] Naveen Velasquez MD [address] [place] [address] Scheduled Orders Name Type Priority Associated Diagnoses Orde r Schedule ECG 12 Lead ECG Routine Paroxysmal atrial fibrillation Ordered: 08/30/2024 documented as of this encounter Visit Diagnoses Diagnosis Paroxysmal atrial fibrillation- Primary Atrial fibrillation documented in this encounter Care Teams Continuity Tester Relationship Specialty Start Date End Date Alisa Kunz DO [address] [place] [address] PCP - General Internal Medicine 04/26/21 documented as of this encounter
--- OUTSIDE RECORDS SUMMARY | 2024-10-26 13:17 | XMS_ITS | Encounter Summary ---
Author Organization [facility] ystem Address [address] [place] [address] Care Team Providers Care Hospital Orderly Name Role Phone Alisa Kunz Primary Care Provider +1- [phone] Encounter Details Date Type Department Care Team (Late st Contact Info) Description 08/31/[address] [facility] CARDIOLOGY [address] [facility] [address] [place] [address] Naveen Velasquez MD [address]20 [facility] [address] [place] [address] Social History Tobacco Use Types [...] Description 12/02/2024 3:30 PM EDT Office Visit [facility] CARDIOLOGY [address] [place] [address] Sujit Reyes MD 1720 [facility] [address] E [address] [place] [address] 01/19/2025 1:45 PM EST Office Visit [facility] CARDIOLOGY 1720 [facility] [address] [place] [address] Naveen Velasquez MD [address]20 [facility] [address] [place] [address] documented as of this encounter Visit Diagnoses Not on filedocumented in this encounter Care Teams Hospital Orderly Relationship Specialty Start Date End Date Alisa Kunz DO [address] [place], [place] [phone] PCP - General Internal Medicine 04/26/21 documented as of this encounter
--- OUTSIDE RECORDS SUMMARY | 2024-10-26 13:17 | XMS_ITS | Encounter Summary ---
Author Organization [facility] Address [address] [place] [address] Care Team Providers Care Finish Off Operator Name Role Phone Alisa Kunz Primary Care Provider +1- [phone] Encounter Details Date Type Department Care Team [...] SCIENCES CARDIOLOGY [address] [place] [address] [address] Sujit Reyes MD 1720 [facility] Bldg E [address] [place] [address] 01/19/2025 1:45 PM EST Office Visit [facility] CARDIOLOGY 1720 [facility] [address] [place] [address] Naveen Velasquez MD 1720 [facility] [address] E [address] [place] [address] documented as of this encounter Visit Diagnoses Not on filedocumented in this encounter Care Teams Finish Off Operator Relationship Specialty Start Date End Date Alisa Kunz DO [address] [place], [place] [address] PCP - General Internal Medicine 04/26/21 documented as of this encounter
--- OUTSIDE RECORDS SUMMARY | 2024-10-26 13:17 | XMS_ITS | Encounter Summary ---
Author Organization [facility] Address [address] [place] [address] Care Team Providers Care Divinity Teacher Name Role Phone ZeNitin willettgricel Wild DO Primary Care Provider [phone] Kodi Bustos DO Unavailable [phone] Sujit Arriola MD Unavailable [phone] Sujit Reyes MD Unavailable [phone] Patricia Yañez DEPUTY CORONER INVESTIGATOR Unavailable Unavailab Zee Lr DO Unavailable [phone] Encounter Details Date Type Department Care Team (Late st Contact Info) Description 09/02/2024 Telephone [facility] Endocrinology [address] [place] [address] Anne-Marie Kolb L, MICROCHIP SPECIALIST 2[address] [facility] [address] [place] [address] Social History Tobacco Use Types [...] often do you attend chur ch or mandaeism services? 1 to 4 times per year [...] first t anselmo in the morning (EYE-WEB SITE ADMINISTRATOR) to steady your nerves or to get rid of a hangover? 0 08/14/2024 CAGE Questionnaire Score 0 025 Utilities Answer Date Recorded In the past 12 months has th [employer], gas, oil, or water [employer] threatened to shut off services in your [...] at all 09/08/2024 11:19 AM EDT Shashank Burrwos Feeling down, depressed, or hopeless Not at [...] Description 10/27/2024 1:40 PM EDT Office Visit [facility] Endocrinology [address] [place] [address] Anne-Marie Kolb, MICROCHIP SPECIALIST [address] [place] [address] 12/06/2024 11:20 AM EDT Office Visit [facility] Internal Medicine [address]rd [place] [address] Alisa Kunz, DO [address] [place] [address] 12/23/2024 4:00 PM EDT Office Visit [facility] [address]nd [place] [address] Lavern Shoemaker MD [address] [place], [place] [address] 02/02/2025 8:40 AM EST Office Visit [facility] Internal Medicine [address]rd [place] [address] Alisa Kunz, DO [address] [facility] 304 [place] [address] documented as of this encounter [...] documented as of this encounter Care Teams Divinity Teacher Relationship Specialty Start Date End Date Alisa Kunz DO [address] [place] [address] PCP - General Internal Medicine 03/13/21 Kodi Bustos DO [address] [place] [phone] Surgeon Cardiothoracic Surgery 11/06/22 Sujit Arriola MD [address] [place] [address] Consulting Physician Pulmonary Disease 11/06/22 Sujit Reyes MD [address] [place] [address] Referring Physician 12/04/22 Patricia Yañez LPN [facility] TCM Nurse 08/25/24 10/17/24 Zee Lazar DO [address] [place] [address] Resident 09/08/24 documented as of this encounter
--- OUTSIDE RECORDS SUMMARY | 2024-10-26 13:17 | XMS_ITS | Encounter Summary ---
[facility] Address [address] [place] [address] Care Team Providers Care Data Management Analyst Name Role Phone Alisa Kunz Primary Care Provider +1- [phone] Encounter Details Date Type Department Care Team (Latest Contact Info) Description 10/21/2024 Travel Social History Tobacco Use Types Packs/Day [...] Description 12/02/2024 3:30 PM EDT Office Visit [facility] CARDIOLOGY [address] [place] [address] [place] [address] Sujit Reyes MD 1720 [facility] [address] [facility] [address] [place], [place] [address] 01/19/2025 1:45 PM EST Office Visit [facility] CARDIOLOGY 1720 [facility] [address] [place] [address] Naeven Velasquez MD 1720 [facility] [address] [place], [place] [address] documented as of this encounter Visit Diagnoses Not on filedocumented in this encounter Care Teams Data Management Analyst Relationship Specialty Start Date End Date Alisa Kunz DO [address] [place] [address] PCP - General Internal Medicine 04/26/21 documented as of this encounter
--- OUTSIDE RECORDS SUMMARY | 2024-10-26 13:17 | XMS_ITS | Encounter Summary ---
[facility] Address [address] [place] [address] Care Team Providers Care Robot Technician Name Role Phone Alisa Kunz Primary Care Provider +1- [phone] Encounter Details Date Type Department Care Team (Latest Contact Info) Description 10/19/2024 Anticoagulation Visit [facility]IC 1720 [facility] [address] [place] [address] Mike Mariee, Synthetic Soil Blocks Pulper Left ventricular apical thrombus (Primary Dx) Social [...] this encounter Progress Notes * Mike Mariee, Synthetic Soil Blocks Pulper - 10/19/2024 10:32 AM EDT [facility] Anticoagulation [facility] Progress Note Patient Demographics Method of INR reporting: Fotoup Home Monitor SN [id number] Estimated OOP Cost: Indication: Left Ventricular Atypical Thrombus (~2012) Referring Provider Nanette Pryor APRN Reason patient is not on a DOAC: Goal INR: 2-3 Warfarin Start Date ~02/12/24 Reason patient is not on home monitor: [id number]: Planned Duration of Therapy Indefinite Relevant medical [...] - HM 1.4 - Clinic 1.32 - AIR GRINDER 2.8 2.0 Notes Admitted [facility] Rec'd 05/27 HM 1-BILL TODAY HM 2- no leonid; In clinic HM 3 - no bill HM 4 - no bill HM 1- BILL TODAY HM 2 - no bill Rec'd 08/11 HM 3 - no bill HM 4- no bill Rec'd 09/02 In clinic Date 09/27 10/04 10/18 Total Weekly Dose 32.5 mg 35 mg 37.5 mg INR 1.6 2.04 2.14 Notes Rec'd 09/28 Rec'd 10/05 Rec'd 10/19 Patient Contact Information Verbal release: Signed 03/05/24 Preferred contact number: [phone] Alternative contact number(s): [phone] (Doron) [phone] (Ruthie) [phone] (Madyson) Patient Appropriate for WarfNoCall ? No Preferred contact name: Michelle Felipe Alternative contact name(s): Doron Felipe () Ruthie Arlette (Daughter) Madyson Hernandes (Daughter) Preferred contact relation: Self Lab contact information (if applicable): Subjective Findings Drug Interactions Dietary Findings Historical: duloxetine, levothyroxine, ezetimibe, furosemide Historical GLV intake (date updated): broccoli/cabbage every now and then, not much other GLV New (including OTC): Levofloxacin 500 mg - completed GLV changes this encounter: Black eyed peas and kale Alcohol and Tobacco Historical: 2 beers or 1 cocktail per evening, no tobacco New: None Patient Findings Positives: Change in medications, Change in diet/appetite Negatives: Signs/symptoms of thrombosis, Signs/symptoms of bleeding, Laboratory test error suspected, Change in health, Change in alcohol use, Change in activity, Upcoming invasive procedure, Emergency department visit, Upcoming dental procedure, Missed doses, Extra doses, Hospital admission, Bruising, Other complaints Comments: Patient mentions difficulty communicating with [place], is waiting for her daughter tohelp her with the portal. Patient believes she took 7.5 8/5 and 5 mg all other days. Patient statescardioversion 8/5 was cancelled. Patient has completed Levofloxacin and is back on mycophenolate. Patient reports having a serving of black eyed peas and a serving of kale this past week. Appt consult ation to discuss pleural drain 10/28. All other findings negative per patient. Assessment and Plan: INR was therapeutic at 2.14 (2.0-3.0). Per Iraj ZayasD instructed patient to take warfarin7.5 mg today and warfarin 5 mg all other days until recheck. Recheck INR in 1 week, 10/26. Patient prefers testing Tuesdays. Verbal and written information provided. Michelle Felipe expresses understanding by teach back and has no further questions at this time. Mike Mariee [facility] 10/19/2024 10:54 EDT I, Reema Beal, IrajD, have reviewed the note in full and agree with the assessment and plan. 10/19/24 11:21 EDT documented in this encounter Plan of Treatment Upcoming Encounters Date Type Department Care Team (Late st Contact Info) Description 12/02/2024 3:30 PM EDT Office Visit [facility] CARDIOLOGY [address] [facility] [place] [address] Sujit Reyes MD [address] [place] [address] 01/19/2025 1:45 PM EST Office Visit [facility] CARDIOLOGY [address] [place] [address] Naveen Velasquez MD [address] [place] [address] documented as of this encounter Procedures Procedure Name Priority Date/Time Associated Diagnosis Comments SCANNED - LABS 10/19/2024 PROTIME-INR Routine 10/18/2024 documented in this encounter Results * LABS SCANNED (10/19/2024) [facility] New Onbase LAB BLOOD ORDERABLES Final Re sult * Protime-INR (10/18/2024) INR 2.14 Blood 10/18/2024 Historical Provider LAB BLOOD ORDERABLES Edit ed Result - Final documented in this encounter Visit Diagnoses Diagnosis Left ventricular apical thrombus- Primary documented in this encounter Care Teams Robot Technician Relationship Specialty Start Date End Date Alisa Kunz DO [address] [place] [address] PCP - General Internal Medicine 04/26/21 documented as of this encounter
--- OUTSIDE RECORDS SUMMARY | 2024-10-26 13:17 | XMS_ITS | Encounter Summary ---
Author Organization [facility] ystem Address [address] [place] [address] Care Team Providers Care Key Carrier Name Role Phone Alisa Kunz Primary Care Provider +1- [phone] Reason for Visit * Reason Onset Date Comments - PPW REQUEST 10/04/2024 Encounter Details Date Type Department Care Team (Late st Contact Info) Description 10/04/2024 Telephone [facility] CARDIOLOGY 1720 [facility] 400 [place] [address] Sujit Reyes MD [address] [facility] [address] [facility] [address] [place] [id number] - PPW REQUEST Social History Tobacco Use [...] Tulio Relationship: Self Best call back number: [phone] What form or medical record are you requesting: INR Who is requesting this form or medical record from you: PATIENT How would you like to receive the form or medical records (pick-up, mail, fax): FAX If fax, what is the fax number: [phone] Timeframe paperwork needed: THOMPSON Additional notes: ORDERS FOR INR documented in this encounter Plan of Treatment Upcoming Encounters Date Type Department Care Team (Late st Contact Info) Description 12/02/2024 3:30 PM EDT Office Visit [facility] CARDIOLOGY [address] [place] [address] [address] Sujit Reyes MD [address] [place], [place] [phone] 01/19/2025 1:45 PM EST Office Visit [facility] CARDIOLOGY 1720 [facility] [address] [place] [address] Naveen Velasquez MD 1720 [facility] [address] [place] [address] documented as of this encounter Visit Diagnoses Not on filedocumented in this encounter Care Teams Key Carrier Relationship Specialty Start Date End Date Alisa Kunz DO [address] [facility] [address] [place], [place] [address] PCP - General Internal Medicine 04/26/21 documented as of this encounter
--- OUTSIDE RECORDS SUMMARY | 2024-10-26 13:17 | XMS_ITS | Encounter Summary ---
Author Organization [facility] ystem Address [address] [place] [address] Care Team Providers Care Laboratory Operations Coordinator Name Role Phone Alisa Kunz Primary Care Provider +1- [phone] Reason for Visit * Reason Onset Date Comments - CALL BACK 08/31/2024 Encounter Details Date Type Department Care Team (Late st Contact Info) Description 08/31/2024 Telephone [facility] CARDIOLOGY [address]20 [facility] [address] [place] [address] Naveen Velasquez MD [address] [facility] [address] [place] [phone] - CALL BACK Social History Tobacco Use [...] 9:45 AM EDT Tanya Boyce RN * [place] Suicide Severity Rating Scale (Screener/Recent Self-Report) Question [...] Felipe Relationship: Self Best call back number: [phone] What is the best time to reach [...] Description 12/02/2024 3:30 PM EDT Office Visit [facility] CARDIOLOGY [address] [place] [address] [address] Sujit Reyes MD [address] [place], [place] [address] 01/19/2025 1:45 PM EST Office Visit [facility] CARDIOLOGY [address] [place] [address] Naveen Velasquez MD [address] [place] [address] documented as of this encounter Visit Diagnoses Not on filedocumented in this encounter Care Teams Laboratory Operations Coordinator Relationship Specialty Start Date End Date Alisa Kunz DO [address] [id number] PCP - General Internal Medicine 04/26/21 documented as of this encounter
--- OUTSIDE RECORDS SUMMARY | 2024-10-26 13:17 | XMS_ITS | Encounter Summary ---
Author Organization [facility] Address [address] [place] [address] Care Team Providers Care Set And Exhibit Designer Name Role Phone Alisa Kunz DO Primary Care Provider Kodi Bustos DO Unavailable [phone] Sujit Arriola MD Unavailable [phone] Sujit Reyes MD Unavailable [phone] Patricia Yañez LPN Unavailable Unavailab le [...] Pleural effusion Alisa Kunz DO [address] [place] [address] Phone: tel: fax: Referral ID Status Reason Start Date Expiration Date V isits Requested Visits Authorized [id number] Closed Specialty Services Required 08/31/2024 03/02/[phone] Encounter Details Date Type Department Care Team (Late st Contact Info) Description 08/31/2024 Orders Only [facility] Internal Medicine [address] [place] [address] Nitin Kunzista Torri, [address] [place] [address] At high risk for falls [...] How often do you attend chur or rastafarian services? 1 to 4 times [...] Recorded Patient Health Questionnaire-2 Score 0 08/04/2024 [place] of Occupat ionor Health - Occupational Stress Questionnaire Answer Date [...] first t anselmo in the morning (EYE-HOT DOG VENDOR) to steady your nerves or to get [...] Description 10/27/2024 1:40 PM EDT Office Visit [facility] Endocrinology [address] [place] [address] Anne-Marie Kolb L, SALES DEVELOPMENT DIRECTOR [address] [facility] 125 [place] [address] 12/06/2024 11:20 AM EDT Office Visit [facility] Internal Medicine [address] [place] [address] Alisa Kunz, DO [address] [address] 12/23/2024 4:00 PM EDT Office Visit [facility] Medicine Specialties [address] [place] [address] Lavern Shoemaker MD [address] [place] [address] 02/02/2025 8:40 AM EST Office Visit [facility] Internal Medicine [address] [place] [address] Alisa Kunz, DO [address] [facility] [address] [place] [address] Scheduled Referrals Name Type Priority Associated Diagnoses [...] documented as of this encounter Care Teams Set And Exhibit Designer Relationship Specialty Start Date End Date Alisa Kunz DO [address] [place] [address] PCP - General Internal Medicine 03/13/21 Kodi Bustos DO [address] [address] Surgeon Cardiothoracic Surgery 11/06/22 Sujit Arriola MD [address] [place] [address] Consulting Physician Pulmonary Disease 11/06/22 Sujit Reyes MD [address] [place] [address] Referring Physician 12/04/22 Patricia Yañez LPN [facility] TCM Nurse 08/25/24 10/17/24 documented as of this encounter
--- OUTSIDE RECORDS SUMMARY | 2024-10-26 13:17 | XMS_ITS | Encounter Summary ---
Author Organization [facility] Address [address] [place] [address] Care Team Providers Care Red Hat Linux Administrator Name Role Phone Alisa Kunz Primary Care Provider +1- [phone] Encounter Details Date Type Department Care Team [...] 9:45 AM EDT Tanya Boyce RN * [place] Suicide Severity Rating Scale (Screener/Recent Self-Report) Question Answer Date of Assessment Author 6. Suicidal Behavior (Lifetime) No 09/24/2024 9:45 AM EDT Cassandra Parisi RN documented as of this encounter Plan of Treatment Upcoming Encounters Date Type Department Care Team (Late st Contact Info) Description 12/02/2024 3:30 PM EDT Office Visit [facility] CARDIOLOGY [address] [facility] [place] [address] Sujit Reyes MD [address] [facility] [address] [place] [address] 01/19/2025 1:45 PM EST Office Visit [facility] CARDIOLOGY [address] [facility] [address] [place] [address] Naveen Velasquez MD [address] [facility] B[address]G E [address] [place] [address] documented as of this encounter Visit Diagnoses Not on filedocumented in this encounter Care Teams Red Hat Linux Administrator Relationship Specialty Start Date End Date Alisa Kunz DO [address] [place] [place] [address] PCP - General Internal Medicine 04/26/21 documented as of this encounter
--- OUTSIDE RECORDS SUMMARY | 2024-10-26 13:17 | XMS_ITS | Encounter Summary ---
Author Organization [facility] Address [address] [place] [address] Care Team Providers Care Filter Tip Catcher Name Role Phone Alisa Kunz Primary Care Provider +1- [phone] Encounter Details Date Type Department Care Team (Late st Contact Info) Description 09/20/2024 Telephone [facility] [address] [facility] [address] [place] [address] Marj Delgado, PharmD [address] [place] [address] Social History Tobacco Use Types [...] follow up with patient post procedure. Marj Delgdao PharmD 09/20/2024 14:21 EDT documented in this encounter Plan of Treatment Upcoming Encounters Date Type Department Care Team (Late st Contact Info) Description 12/02/2024 3:30 PM EDT Office Visit [facility] CARDIOLOGY [address] [place] [address] Sujit Reyes MD [address] [place] [address] [place] [address] 01/19/2025 1:45 PM EST Office Visit [facility] CARD[facility]OLOG[facility] [address] [facility] [address] [place] [address] Naveen Velasquez MD [address] [facility] [address] E [address] [place] [address] documented as of this encounter Visit Diagnoses Not on filedocumented in this encounter Care Teams Filter Tip Catcher Relationship Specialty Start Date End Date Alisa Kunz DO [address] [facility] [address] [place] [address] PCP - General Internal Medicine 04/26/21 documented as of this encounter
--- OUTSIDE RECORDS SUMMARY | 2024-10-26 13:17 | XMS_ITS | Encounter Summary ---
Author Organization [facility] Address [address] [place] [address] Care Team Providers Care Tobacco Prevention Health Educator Name Role Phone Alisa Kunz Primary Care Provider +1- [phone] Reason for Visit * Reason Comments Med Refill Encounter Details Date Type Department Care Team (Late st Contact Info) Description 09/06/2024 Refill [facility] CARDIOLOGY [address] [place] [address] Sujit Reyes MD [address]20 [facility] Bld[address] E [address] [place] [id number] Med Refill Social History Tobacco Use Types [...] [facility] CARDIOLOGY [address] [facility] [place] [address] Sujit Reyes MD [address] [place], [place] [id number] 01/19/2025 1:45 PM EST Office Visit [facility] CARDIOLOGY [address] [place] [address] Naveen Velasquez MD [address] [place] [address] documented as of this encounter Visit Diagnoses Not on filedocumented in this encounter Care Teams Tobacco Prevention Health Educator Relationship Specialty Start Date End Date Alisa Kunz DO [address] [place] [address] PCP - General Internal Medicine 04/26/21 documented as of this encounter
--- OUTSIDE RECORDS SUMMARY | 2024-10-26 13:17 | XMS_ITS | Encounter Summary ---
Author Organization [facility] Address [address] [place] [address] Care Team Providers Care Rn Corrections Name Role Phone Alisa Kunz Primary Care Provider +1- [phone] Encounter Details Date Type Department Care Team (Late st Contact Info) Description 09/21/2024 Telephone [facility] [address] [facility] [address] [place] [address] Marj Delgado, PharmD [address] [place] [address] Social History Tobacco Use Types [...] AM EDT Shown, Jodie Meza RN * [place] Suicide Severity Rating Scale (Screener/Recent Self-Report) Question [...] CENTER CARDIOLOGY [address] [place] [address] [address] Sujit Reyes MD [address] [facility] [address] [place] [address] 01/19/2025 1:45 PM EST Office Visit [facility] CARDIOLOGY [address] [facility] [address] [place] [address] Naveen Velasquez MD [address] [facility] [address] [place] [address] documented as of this encounter Visit Diagnoses Not on filedocumented in this encounter Care Teams Rn Corrections Relationship Specialty Start Date End Date Alisa Kunz DO [address] [place], [place] [address] PCP - General Internal Medicine 04/26/21 documented as of this encounter
--- OUTSIDE RECORDS SUMMARY | 2024-10-26 13:17 | XMS_ITS | Encounter Summary ---
Author Organization [facility] ystem Address [address] [place] [address] Care Team Providers Care Regroover Name Role Phone Alisa Kunz Primary Care Provider +1- [phone] Encounter Details Date Type Department Care Team (Late st Contact Info) Description 09/06/2024 Documentation [facility] CARDIOLOGY [address] [facility] [address] [place] [address] Ekaterina Rand PA [address] [facility] [address] [place] [address] Social History Tobacco Use Types Packs/Day Years [...] us know that she was admitted at [facility] 08/14/2024 through 08/24/2024 for acute on chronic [...] first diagonal, SVG to second diagonal, SHAR [place] metal stenting of the ostium of the SVG to second diagonal, Rotational atherectomy/PTCA ofRCA and SVG to second diagonal in-stent. PTCRA/stenting of proximal RCA in-stent restenosis and rotational atherectomy/PTCA of SVG to seconddiagonal. Brachy therapy for in-stent restenosis of proximal dominant RCA, 04/16/2001, LVEF (65%). [facility]: Dr. Thakkar for acute MT, 01/10/2007: Normal LV function and wall motion, Patent SVG to second diagonal, Patent SHEEHAN graft to LAD, 50% ostial stenosis of SVG to first diagonal, JANA Taxus stenting of mid RCA stenosis. Mild reversible anteroischemia - Cardiac SPECT (scan date ?), LVEF (77%). [facility], May 2011, [facility], reportedly revealed no disease (data deficit) in setting of diabetic ketoacidosis associated with acute respiratory failure requiring mechanical ventilation x 5 days. Echocardiogram 04/12/16: LVEF 70%, mild MR, AV sclerosis Myocardial perfusion study 02/17/2017: Wnl, EF 70% Echo, 05/18/21, EF 60%, Mild MS [facility] PTCA RCA ISR: Patent Grafts. 04/30 Echo [...] to moderate AI. Mild MS. Admission at [facility] 08/14 - 08/24/2024: For acute on chronic [...] PPM - GFT CVA 04/27 [facility], outpt monitor demonstrated Afib 40% carotid plaque [...] Description 12/02/2024 3:30 PM EDT Office Visit [facility] CARDIOLOGY [address] [facility] [place] [address] Sujit [facility]yes [facility] [address] E [facility] 400 [place] [address] 01/19/2025 1:45 PM EST Office Visit [facility] CARDIOLOGY [address] [place] [address] Naveen Velasquez MD [address] [facility] [address] [place] [address] documented as of this encounter Visit Diagnoses Not on filedocumented in this encounter Care Teams Regroover Relationship Specialty Start Date End Date Alisa Kunz DO [address] [facility] [address] [place], [place] [address] PCP - General Internal Medicine 04/26/21 documented as of this encounter
--- OUTSIDE RECORDS SUMMARY | 2024-10-26 13:17 | XMS_ITS | Encounter Summary ---
Author Organization [facility] ystem Address [address] [place] [address] Care Team Providers Care Appraisal Coordinator Name Role Phone Alisa Kunz Primary Care Provider +1- [phone] Encounter Details Date Type Department Care Team (Latest Contact Info) Description 08/26/2024 Anticoagulation Visit [facility] 1720 [facility] 606 [place] [address] Yancy Viveros, Career Professional Left ventricular apical thrombus (Primary Dx) Social [...] this encounter Progress Notes * Yancy Viveros, Career Professional - 08/26/2024 2:06 PM EDT [facility] Progress Note Patient Demographics Method of INR reporting: [employer] Home Monitor SN [id number] Estimated OOP Cost: Indication: Left Ventricular Atypical Thrombus (~2012) Referring Provider Nanette Pryor APRN Reason patient is not on a DOAC: Goal INR: 2-3 Warfarin Start Date ~02/12/24 Reason patient is not on home monitor: [id number]: Planned Duration of Therapy Indefinite Relevant medical [...] Verbal release: Signed 03/05/24 Preferred contact number: [phone] Alternative contact number(s): [phone] (Doron) [phone] (Ruthie) [phone] (Madyson) Patient Appropriate for WarfNoCall ? No [...] Test strips on hand: 8 Barcode number: [id number] Test strip LOT: [id number] EXP: 03/2026 Serial number: [id number] [id number] Supplies billing code used: last 08/04/24] - Next must be on or after 09/01/24 Transfer Tube Lot number: [id number] Safety Lancets: Lot: Exp: Billing: bill must [...] 3:30 PM EDT Office Visit [facility] CARDIOLOGY [address] [place] [address] [address] Sujit Reyes MD [address] [facility] [address] [place], [place] [address] 01/19/2025 1:45 PM EST Office Visit [facility] C[facility] [address] [facility] [address] [place] [address] Naveen Velasquez MD [address] [facility] [address] [place] [address] documented as of this encounter Visit Diagnoses Diagnosis Left ventricular apical thrombus- Primary documented in this encounter Care Teams Appraisal Coordinator Relationship Specialty Start Date End Date Alisa Kunz DO [address] [place] [address] PCP - General Internal Medicine 04/26/21 documented as of this encounter
--- OUTSIDE RECORDS SUMMARY | 2024-10-26 13:17 | XMS_ITS | Encounter Summary ---
Author Organization [facility] Address [address] [place] [address] Care Team Providers Care Dental Instrument Maker Name Role Phone Alisa Kunz Primary Care Provider +1- [phone] Encounter Details Date Type Department Care Team [...] SYSTEM CARDIOLOGY [address] [place] [address] Sujit Reyes MD 1720 [facility] Bld[address] E [address] [place], [place] [address] 01/19/2025 1:45 PM EST Office Visit [facility] CARDIOLOG[facility] 1720 [facility] [address] [place] [address] Naveen Velasquez MD [address] [facility] [address] [place], [place] [address] documented as of this encounter Visit Diagnoses Not on filedocumented in this encounter Care Teams Dental Instrument Maker Relationship Specialty Start Date End Date Alisa Kunz DO [address] [place] [address] PCP - General Internal Medicine 04/26/21 documented as of this encounter
--- OUTSIDE RECORDS SUMMARY | 2024-10-26 13:17 | XMS_ITS | Encounter Summary ---
Author Organization [facility]stem Address [address] [place] [address] Care Team Providers Care Public Message Service Supervisor Name Role Phone Ze Alisa Lizbeth Primary Care Provider +1- [phone] Reason for Referral * Hospital - Outpatient (Routine) - Authorized Specialty Diagnoses / Procedures Referred By Contac t Referred To Contact Diagnoses Paroxysmal atrial fibrillation Procedures Cardioversion External in Cardiology Department DE CARDIOVERSION ELECTIVE ARRHYTHMIA EXTERNAL Sujit Reyes MD 1720 [facility] E [address] [place] [address] Phone: tel: fax: [facility] INVASIVE LOCATION Referral ID Status Reason Start Date Expiration Date V isits Requested Visits Authorized [id number] Authorized 09/06/2024 12/06/2025 1 2 Reason for Visit * Reason Onset Date Comments - CALL BACK 09/06/2024 Encounter Details Date Type Department Care Team (Late st Contact Info) Description 09/06/2024 Telephone [facility] CARDIOLOGY 1720 [facility] 400 [place] [address] Sujit Reyes MD 1720 [facility] E [address] [place] [address] - CALL BACK Social History Tobacco Use [...] Felipe Relationship: Self Best call back number: [phone] What is the best time to reach [...] 12/02/2024 3:30 PM EDT Office Visit [facility] CARDIOLOGY [address] [place] [address] Sujit Reyes MD 1720 [facility] [address] [address] 01/19/2025 1:45 PM EST Office Visit [facility] CARDIOLOGY [address] [place] [address] Naveen Velasquez MD [address] [facility] [address] [place], [place] [address] documented as of this encounter Visit Diagnoses Diagnosis Paroxysmal atrial fibrillation- Primary Atrial fibrillation documented in this encounter Care Teams Public Message Service Supervisor Relationship Specialty Start Date End Date Alisa Kunz DO [address] [place] [address] PCP - General Internal Medicine 04/26/21 documented as of this encounter
--- OUTSIDE RECORDS SUMMARY | 2024-10-26 13:17 | XMS_ITS | Encounter Summary ---
Author Organization [facility] Address [address] [place] [address] Care Team Providers Care Child Adolescent Psychiatrist Name Role Phone Alisa Kunz DO Primary Care Provider [phone] Laura Albright RENTAL MANAGER Unavailable Unavailable Balwinder Vale Unavailable Unavailable Kodi Bustos DO Unavailable [phone] Sujit Arriola MD Unavailable [phone] HatLaura navas LPN Unavailable Unavailable Sujit Reyes MD Unavailable [phone] Zully Caldwell RENTAL MANAGER Unavailable Unavailable HatLaura navas RENTAL MANAGER Unavailable Unavailable HatLaura navas RENTAL MANAGER Unavailable Unavailable Tanya Powell Unavailable [phone] Sarah Reyes RENTAL MANAGER Unavailable Unavailable Ekaterina Gómez Unavailable Unavailable Zully Caldwell RENTAL MANAGER Unavailable Unavailable Ekaterina Gómez Unavailable Unavailable Patricia Yañez RENTAL MANAGER Unavailable Unavailab Zee Lr DO Unavailable [phone] Reason for Visit * Reason Comments Med Refill Encounter Details Date Type Department Care Team (Late st Contact Info) Description 12/10/2021 Refill [facility] Internal Medicine [address] [place] [address] Alisa Kunz DO [address] [place] [address] Social History Tobacco Use Types Packs/Day Years [...] Description 10/27/2024 1:40 PM EDT Office Visit [facility] Endocrinology [address] [place] [address] Anne-Marie Kolb, EVENT HOST [address] [facility] [address] [place] [address] 12/06/2024 11:20 AM EDT Office Visit [facility] Internal Medicine [address] [place] [address] Alisa Kunz DO [address] [place] [address] 12/23/2024 4:00 PM EDT [facility] [address] [place] [address] Lavern Shoemaker MD [address] [place] [id number] 02/02/2025 8:40 AM EST Office Visit [facility] Internal Medicine [address] [place] [address] Alisa Kunz, DO [address] [place] [address] documented as of this encounter [...] as of this encounter Care Teams Child Adolescent Psychiatrist Relationship Specialty Start Date End Date Alisa Kunz DO [address] [place] [address] PCP - General Internal Medicine 03/13/21 Laura Albright LPN VALUE-BASED [place] [address] TCM Nurse 08/30/22 09/27/22 Balwinder Vale [address] [address] Community Health Worker Chairman Of The Board 08/30/22 09/06/22 Kodi Bustos DO [address] [address] Surgeon Cardiothoracic Surgery 11/06/22 Sujit Arriola MD [address] [place] [address] Consulting Physician Pulmonary Disease 11/06/22 Laura Albright LPN VALUE-[employer]ED [place] [address] TCM Nurse 12/02/22 01/01/23 Sujit Reyes MD [address] [place] [address] Referring Physician 12/04/22 Zully Caldwell LPN VAL[employer]ED [place] [address] TCM Nurse 02/03/23 03/05/23 Laura Albright LPN VALUE-[employer]ED [place] [address] TCM Nurse 08/05/23 09/04/23 Larua Albright LPN VALUE-[employer]ED [place] [address] TCM Nurse 02/17/24 03/18/24 Tanya Powell [address] [facility] 125 [place] [address] Registered Nurse 04/02/24 07/01/24 Sarah Reyes LPN TCM Nurse 05/27/24 06/26/24 Ekaterina Gómez [employer]celsior Cutter Chairman Of The Board 07/14/24 07/14/24 Zully Caldwell LPN VALUE-[employer]ED [place] [address] TCM Nurse 07/16/24 08/15/24 Ekaterina Gómez Excelsior Cutter Chairman Of The Board 08/16/24 08/16/24 Patricia Yañez LPN [facility] TCM Nurse 08/25/24 10/17/24 Zee Lazar DO [address] [place] [address] Resident 09/08/24 documented as of this encounter
--- OUTSIDE RECORDS SUMMARY | 2024-10-26 13:17 | XMS_ITS | Clinical Summary ---
[facility] Address [address] [place] [address] Care Team Providers Care Replanting Machine Crew Name Role Phone Alisa Kunz Primary Care Provider [phone] Allergies Active Allergy Reactions Criticality Noted Date [...] mg on 10/12/2024. 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 Continue sensor as asymptomatic Abnormal stress test 04/26/2020 Overview (04/27/2020): [facility] at [facility] (04/19/2020): Test is abnormal and suggest anterior ischemia. Normal LVEF Fatigue 12/09/2018 Syncope and collapse 08/18/2018 Complete heart block 08/18/2018 A-fib 08/16/2018 History of CVA (cerebrovascular accident) 2018 Laceration of head 08/16/2018 Hyponatremia 08/15/2018 Second degree AV block 08/15/2018 Overview (08/24/2018): Added automatically from request for surgery [id number] Chronic kidney disease 05/05/2012 Hereditary and idiopathic neuropathy 05/05/2012 CAD (coronary artery disease) Ischemic heart disease Overview (02/29/2016): a. CABG, Dr. Timur Lopez, July 1999. i. SHEEHAN to distal LAD. ii. SVG to first diagonal. iii. SVG to second diagonal. b. SHAR [place] metal stenting of the ostium of the SVG to second diagonal. c. Rotational atherectomy/PTCA of RCA and SVG to second diagonal in-stent. i. PTCRA/stenting of proximal RCA in-stent restenosis and rotational atherectomy/PTCA of SVG to second diagonal. d. Americo therapy for in-stent restenosis of proximal dominant RCA, 04/16/2001, LVEF (65%). e. [facility]: Dr. Thakkar for acute MS, 01/10/2007: i. Normal LV function and wall motion. ii. Patent SVG to second diagonal. iii. Patent SHEEHAN graft to LAD. iv. 50% ostial stenosis of SVG to first diagonal. v. JANA Taxus stenting of mid RCA stenosis. f. Mild reversible anteroischemia - Cardiac SPECT (scan date ?), LVEF (77%). g. [facility], May 2011, [facility], reportedly revealed no disease (data deficit) [...] Encounters Date Type Department Care Team Description 10/21/2024 2:15 PM EDT Office Visit [facility] [address] [place] [address] Shannen Horta, YAMILET EWELINA (obstructive sleep apnea) (Primary Dx); Nocturnal hypoxemia; Weight loss; On supplemental oxygen therapy 10/21/2024 Travel 10/19/2024 Telephone [facility] [address] [place] [address] Naveen Velasquez MD 10/19/2024 Anticoagulation Visit [facility] [address] [facility] [address] [place] [address] Mike Mariee, Office Inspector Left ventricular apical thrombus (Primary Dx) 10/12/2024 9:52 AM EDT - 10/12/2024 4:46 PM EDT Hospital Encounter [facility] [address] [place] [address] Naveen Velasquez MD Paroxysmal atrial fibrillation Discharge Disposition: Home or Self Care 10/12/2024 Telephone [facility] [address] [facility] [address] [place] [address] Marj Delgado, PharmD 10/12/2024 Travel 10/07/2024 Telephone [facility] [address] [facility] [address] [place] [address] Mike Mariee, Office Inspector 10/05/2024 Telephone [facility] [address] [facility] [address] [place] [address] TOMASSONI - CARDIOVERSION 10/05/2024 Anticoagulation Visit [facility] [address] [facility] [address] [place] [address] Mike Mariee, Office Inspector Left ventricular apical thrombus (Primary Dx) 10/04/2024 Telephone [facility] [address] [facility] [address] [place] [address] MD [address]CRAGER - PPW REQUEST 09/28/2024 Anticoagulation Visit [facility] [address] [facility] [address] [place] [address] Yancy Viveros, Office Inspector Left ventricular apical thrombus (Primary Dx) 09/28/2024 Telephone [facility] [address] [facility] [address] [place] [address] Sujit Reyes MD Results 09/24/2024 Travel 09/22/2024 11:30 AM EDT Anticoagulation Visit [facility] [address] [facility] [address] [place] [address] Left ventricular apical thrombus (Primary Dx) 09/22/2024 Travel 09/21/2024 Telephone [facility] [address] [facility] [address] [place] [address] Marj Delgado, PharmD 09/20/2024 Telephone [facility] [address] [facility] [address] [place] [address] Marj Delgado, PharmD 09/20/2024 Travel 09/16/2024 Prep for Surgery [facility]DERS ONLY [address] [place] [address] Peg Nails PA-C 09/06/2024 Documentation [facility] [address] [facility] [address] [place] [address] Ekaterina Rand PA 09/06/2024 Telephone [facility] [address] [facility] [address] [place] [address]CRAGER - CALL BACK 09/06/2024 Refill [facility] [address] [facility] [address] [place] [address] Sujit Reyes MD Med Refill 09/02/2024 Anticoagulation Visit [facility] [address] [facility] [address] [place] [address] Mike Mariee, Office Inspector Left ventricular apical thrombus (Primary Dx) 08/31/2024 Documentation [facility] [address] [facility] [address] [place] [address] Naveen Velasquez MD 08/31/2024 Telephone [facility] [address] [facility] [address] [place] [address]TOMASSONI - CALL BACK 08/27/2024 2:55 PM EDT Lab [facility] [address] [place] [address] Left ventricular apical thrombus; Left ventricular apical thrombus without MS 08/27/2024 1:30 PM EDT Anticoagulation Visit [facility] [address] [facility] [address] [place] [address] Left ventricular apical thrombus (Primary Dx); Left ventricular apical thrombus without MS 08/27/2024 Travel 08/26/2024 Anticoagulation Visit [facility] [address] [facility] [address] [place] [address] Yancy Viveros, Office Inspector Left ventricular apical thrombus (Primary Dx) 08/11/2024 Anticoagulation Visit [facility] [address] [facility] [address] [place] [address] Yancy Viveros, Office Inspector Left ventricular apical thrombus (Primary Dx) 08/04/2024 9:15 AM EDT Anticoagulation Visit [facility] [address] [facility] [address] [place] [address] Left ventricular apical thrombus (Primary Dx) 08/04/2024 Travel 07/30/2024 Telephone [facility] [address] [facility] [address] [place] [address] TOMASSONI -CARDIOVERSION 07/29/2024 Anticoagulation Visit [facility] [address] [facility] [address] [place] [address] Yancy Viveros, Office Inspector Left ventricular apical thrombus (Primary Dx) 07/28/2024 11:45 AM EDT Office Visit [facility] [address] [place] [address] Naveen Velasquez MD Atrial fibrillation, persistent (Primary Dx); Complete heart block; Coronary artery disease involving mekoryuk coronary artery of mek[place] heart without angina pectoris; Chronic diastolic congestive heart failure 07/28/2024 Travel 07/28/2024 Telephone [facility] [address] [place] [address] Naveen Velasquez MD Appointment from Last 3 Months Immunizations Immunization Administration Dates Next Due COVID-19 (Incomparable Things) Purple Cap Monovalent 04/22/2020,03/30/2020 Fluzone High-Dose 65+YRS 11/27/2023,11/09,01/18/2019,12/19 Fluzone High-Dose 65+yrs 01/09/2023,01/09,01/18/2019,12/19 Hepatitis A 01/24/2019,01/23/2019,06/11/2018 Influenza TIV (IM) 12/08/2018 Influenza, Unspecified 12/09/2019 Pneumococcal Conjugate 13-Va lent (PCV13) 08/06/2019,07/02/2016 Pneumococcal Polysaccharide (PPSV23) 12/09/2019, 06/11/2018 Shingrix 01/24/2019,01/23/2019,06/11/2018 Family History Medical History Relation Name Comments COPD Father COPD Mother Gracy Candace Heart disease Mother Gracydrew Maria Stroke Mother Gracy Candace Relation Name Status Comments Father Mother Gracydrew Maria Social History Tobacco Use Types Packs/Day Years [...] F) 10/21/2024 2:21 PM EDT Respiratory Rate 14 10/12/2024 3:10 PM EDT Oxygen Saturation 92% 10/21/2024 2:21 PM EDT 2L oxygen Inhaled Oxygen Concentration - - Weight 59.9 kg (132 lb) 10/12/2024 3:28 PM EDT Height 163 cm (5' 4.17 ) 10/21/2024 2:21 PM EDT Body Mass Index 22.54 10/12/2024 3:28 PM EDT Plan of Treatment Upcoming Encounters Date Type Department Care Team (Late st Contact Info) Description 12/02/2024 3:30 PM EDT Office Visit [facility] [address] [facility] [place] [address] [address] Sujit Reyes MD [facility] [address] [place] [address] 01/19/2025 1:45 PM EST Office Visit [facility] [address] [place] [address] Naveen Velasquez MD [address] [place] [address] Health Maintenance Due Date Last [...] TEST 02/11/2025 02/12/2024 HEMOGLOBIN A1C 02/13/2025 08/14/2024, 060 09/2024, 05/24/2024, Additional history exists DIABETIC EYE EXAM 03/23/2025 03/23/2024, , 05/01/2022, Additional history exists COLONOSCOPY 10/17/2030 10/17/2020 COLORECTAL CANCER SCREENING 10/17/2030 ZOSTER VACCINE Completed 01/24/2019, 01/08, 06/11/2018 Pneumococcal Vaccine 50+ Completed 020, 08/06/2019, 06/11/2018, Additional history exists HEPATITIS C SCREENING Completed 01/29/2024 , 09/18/2022, 08/25/2022, Additional history exists Medical Devices Implanted Type Area Retail Asset Protection Specialist Device Identifier Shelf Expiration Date Model / Serial / Lot Ld Pm Tendril Sts 6f52cm [id number] - [id number] - [id number] Implanted:Qty: 1 on 08/24/2018 by Naveen Velasquez MD at [facility] Lead [employer] 07/07/[id number] / [id number] / [id number] Ld Pm Tendril Sts 6f46cm [id number] - [id number] - [id number] Implanted:Qty: 1 on 08/24/2018 by Naveen Velasquez MD at [facility] [employer] 04/09/[id number] / [id number] / [id number] Gen Pm Assurity Mri Dr Ortez [id number] - [id number] - [id number] Implanted:Qty: 1 on 08/24/2018 by Naveen Velasquez MD at [facility] Pacemaker [employer] 01/08/2020 [id number] / [id number] / [id number] Procedures Procedure Name Priority Date/Time Associated Diagnosis Comments SCANNED - LABS 10/19/2024 PROTIME-INR Routine 10/18/2024 KENIA W/ CONTRAST, LIMITED DOPPLER AND COLOR [...] apical thrombus Left ventricular apical thrombus without MS POCT PROTIME - INR Routine 08/27/2024 2: 16 PM EDT REMOTE DEVICE CHECK 08/24/2024 5 :09 PM EDT PROTIME-INR Routine 08/10/2024 PROTIME-INR Routine 08/03/2024 ECG 12-LEAD Routine 07/28/2024 Atrial fibrillation, persistent Complete heart block Coronary artery disease involving mekoryuk coronary artery of mekoryuk heart without angina pectoris Chronic diastolic congestive heart failure PROTIME-INR Routine 07/27/2024 OCCULT BLOOD X 1, STOOL Urgent 02/12/2024 12:11 PM EST SCANNED - COLONOSCOPY 10/17/2020 HEMOGLOBIN A1C STAT 05/04/2020 8:41 AM EST LIPID PANEL STAT 05/04/2020 8:41 AM EST from Last 3 Months or Most Recently Relevant to Health Maintenance Results * LABS SCANNED (10/19/2024) Only the most recent of2 resultswithin the time period is included. [facility] Onbase LAB BLOOD ORDERABLES Final Re sult * Protime-INR (10/18/2024) Only the most recent of10 resultswithin the time period is included. Pathologist [facility] INR 2.14 Blood 10/18/2024 Historical Provider LAB BLOOD ORDERABLES Edit ed Result - Final * Cardioversion External in Cardiology Department (10/12/2024 [...] ECHO ORDERABLES Final Resul t * (ABNORMAL) CBC (No Diff) (10/12/2024 10:20 AM EDT) Only the most recent of2 resultswithin the time period is included. WBC 7.80 3.40 - 10.80 10*3/mm3 10/12/2024 10:48 AM EDT [facility] RBC 3.75(L) 3.77 - 5.28 10*6/mm3 10/12/2024 10:48 AM EDT [facility] Hemoglobin 11.2(L) 12.0 - 15.9 g/dL 10/12/2024 10:48 AM EDT [facility] Hematocrit 36.8 34.0 - 46.6 % 10/12/2024 10:48 AM EDT [facility] MCV 98.1(H) 79.0 - 97.0 fL 10/12/2024 10:48 AM EDT [facility] MCH 29.9 26.6 - 33.0 pg 10/12/2024 10:48 AM EDT [facility] MCHC 30.4(L) 31.5 - 35.7 g/dL 10/12/2024 10:48 AM EDT [facility] RDW 16.7(H) 12.3 - 15.4 % 10/12/2024 10:48 AM EDT [facility] RDW-SD 60.3(H) 37.0 - 54.0 fl 10/12/2024 10:48 AM EDT [facility] MPV 9.7 6.0 - 12.0 fL 10/12/2024 10:48 AM EDT [facility] Platelets 289 140 - 450 10*3/mm3 10/12/2024 10:48 AM EDT [facility] Blood Line / Unknown 10/12/2024 10 :20 AM EDT 10/12/2024 10:40 AM EDT us Naveen Velasquez MD LAB BLOOD ORDERABLES Final R esult [facility]
[address] [place] [address], * (ABNORMAL) POC Protime / INR (09/22/2024 11:47 AM EDT) Only the most recent of2 resultswithin the time period is included. Protime 24.2(H) 10.0 - 13.8 seconds 09/22/2024 11:49 AM EDT [facility] INR 2.0(H) 0.91 - 1.09 09/22/2024 11:49 AM EDT [facility] Blood 09/22/2024 11:4 7 AM EDT 09/22/2024 11:49 AM EDT LUIS Dimas POINT OF CARE TEST ORDERAB LES Final Result [facility]
[address] [place] [address], * (ABNORMAL) Basic Metabolic Panel (09/21/2024 9:55 AM EDT) [facility] Glucose 209(H) 65 - 99 mg/dL 09/21/2024 11:17 AM EDT [facility] BUN 19.8 8.0 - 23.0 mg/dL 09/21/2024 11:17 AM EDT [facility] Creatinine 1.05(H) 0.57 - 1.00 mg/dL 09/21/2024 11:17 AM EDT [facility] Sodium 133(L) 136 - 145 mmol/L 09/21/2024 11:17 AM EDT [facility] Potassium 5.0 3.5 - 5.2 mmol/L 09/21/2024 11:17 AM EDT [facility] Chloride 91(L) 98 - 107 mmol/L 09/21/2024 11:17 AM EDT [facility] CO2 27.6 22.0 - 29.0 mmol/L 09/21/2024 11:17 AM EDT [facility] Calcium 9.0 8.6 - 10.5 mg/dL 09/21/2024 11:17 AM EDT [facility] BUN/Creatinine Ratio 18.9 7.0 - 25.0 09/21/2024 11:17 AM EDT [facility] Anion Gap 14.4 5.0 - 15.0 mmol/L 09/21/2024 11:17 AM EDT [facility] eGFR 56.2(L) >60.0 mL/min/1.7 3 09/21/2024 11:17 AM EDT [facility] Blood Line / Unknown 09/21/2024 9: 55 AM EDT 09/21/2024 10:29 AM EDT Narrative [facility] - 09/21/2024 11:17 AM EDT GFR [...] does not include race as a factor Peg Nails PA-C LAB BLOOD ORDERABLES Final Result [facility]
[address] [place] [address], * ECG Scan (08/31/2024) Only the most recent of2 resultswithin the time period is included. Naveen Velasquez MD ECG ORDERABLES Final Result * Remote Device Check (08/24/2024 5:09 PM EDT) Date Time Interrogation Session [id number] [facility] Type Interrogation Session Remote Scheduled [facility] Implantable Pulse Generator Retail Asset Protection Specialist [facility] Implantable Pulse Generator Type IPG [facility] Implantable Pulse Generator Model 2272 Assurity MRI(TM) [facility] Implantable Pulse Generator Serial Number [id number] [facility] Implantable Pulse Generator Implant Date [id number] [facility] Battery Remaining Percentage 39.00 % [facility] Battery Remaining Longevity 44.0 mo [facility] Battery Voltage 2.960 [facility] [employer] RADIOLOGY Battery PHOTOCOPYING EQUIPMENT MECHANIC Trigger 2.600 [facility] Battery Status Middle of Service [facility] Americo Statistic RA Percent Paced 1.00 [facility] [employer]o Statistic RV Percent Paced 99.00 [facility] Atrial Tachy Statistic AT/AF [place] Percent 99.00 [facility] Lead Channel RA Sensing Intrinsic Amplitude 3.100 [facility] Lead Channel Setting RA Sensing Sensitivity 0.50 [facility] Lead Channel RA Impedance Value 430 [facility] Lead Channel Setting RA Pacing Amplitude 2.000 [facility] Lead Channel Setting RA Pacing Pulse Width 0.6 [facility] Lead Channel RV Sensing Intrinsic Amplitude 12.000 [facility] Lead Channel Setting RV Sensing Sensitivity 2.00 [facility] Lead Channel RV Impedance Value 480 [facility] Lead Channel Setting RV Pacing Amplitude 2.000 [facility] Lead Channel Setting RV Pacing Pulse Width 0.5 [facility] Americo Setting Mode (NBG Code) DDDR [facility] Americo Setting Lower Rate Limit 60 [facility] Americo Setting AT Mode Switch Rate 160 [facility] [employer] Setting Maximum Tracking Rate 125 [facility] [place] Setting Maximum Sensor Rate 115 [facility] [employer] Setting PAV Delay 180 [facility] [place] Setting IZZY Delay 150 [facility] Lead Channel Setting RA Sensing Polarity Bipolar [facility] Lead Channel Setting RV Sensing Polarity Bipolar [facility] Lead Channel Setting RA Pacing Polarity Bipolar [facility] Lead Channel Setting RV Pacing Polarity Bipolar [facility] [place] RADIOLOGY Lead Channel RA Pacing Threshold Polarity Bipolar [facility] Lead Channel RV Pacing Threshold Polarity Bipolar [facility] 08/24/2024 5:09 PM EDT us Naveen Velasquez MD CV IMPLANTABLE CARDIAC DEVIC E Final Result [facility] * ECG 12-LEAD (07/28/2024) Narrative [...] 11:45 AM EDT Michelle Felipe 1950 07/28/2024 [facility] Referring Provider: No ref. provider found Alisa Kunz, DO [address] [place], [place] [id number] Chief Complaint Patient presents with PAF (paroxysmal atrial fibrillation) Problem List: Ischemic heart disease: CABG, Dr. Timur Lopez, July 1999 (SHEEHAN to distal LAD,SVG to firstdiagonal, SVG to second diagonal, [place]AR [place] metal stenting of the ostiumof the SVG to second diagonal, Rotational atherectomy/PTCA of RCA and SVGto second diagonal in-stent. PTCRA/stenting of proximal RCA in-stent restenosis and rotationalatherectomy/PTCA of SVG to second diagonal. Brachy therapy for in-stent restenosis of proximal dominant RCA,04/16/2001, LVEF (65%). [facility]: Dr. Thakkar for acute MS, 01/10/2007: Normal LV function andwall motion, Patent SVG to second diagonal, Patent SHEEHAN graft to LAD, 50%ostial stenosis of SVG to first diagonal, JANA Taxus stenting of mid RCAstenosis. Mild reversible anteroischemia - Cardiac SPECT (scan date ?), LVEF(77%). [facility], May 2011, [facility], reportedly revealed no disease (datadeficit) in setting of diabetic ketoacidosis associated with acuterespiratory failure requiring mechanical ventilation x 5 days. Echocardiogram 04/12/16: LVEF 70%, mild MR, AV sclerosis Myocardial perfusion study 02/17/2017: Wnl, EF 70% Echo, 05/18/21, EF 60%, Mild MS [facility] PTCA RCA ISR: Patent Grafts. 04/30 [...] heart block 3. Coronary artery disease involving mekoryuk coronary artery of nativeheart without angina pectoris [...] pleurodesis see #1 F/up in 6 months us Naveen Velasquez MD ECG ORDERABLES Final Result * Occult Blood X 1, Stool - Stool, Per Rectum (02/12/2024 12:11 PM EST) Fecal Occult Blood Negative Negative DISK DIFFUSION 02/12/2024 1:13 PM EST [facility] Stool Specimen from rectum / Unknown Collection / Unknown 02/12/2024 12:11 PM EST 02/12/2024 12:31 PM EST Shannen Foy STEAM CONDITIONER OPERATOR BODY FLUIDS AND STOOLS ORDERABLES Final Result [facility]
[address] [place] [address], * SCANNED - COLONOSCOPY (10/17/2020) Sujit Christine MD CHART REVIEW TABS Lee Ann l Result * (ABNORMAL) Lipid Panel (05/04/2020 8:41 AM EST) Pathologist [facility] Total Cholesterol 184 0 - 200 mg/dL 05/04/2020 9:34 AM EST [facility] Triglycerides 133 0 - 150 mg/dL 05/04/2020 9:34 AM EST [facility] HDL Cholesterol 55 40 - 60 mg/dL 05/04/2020 9:34 AM EST [facility] LDL Cholesterol 106(H) 0 - 100 mg/dL 05/04/2020 9:34 AM EST [facility] VLDL Cholesterol 23 5 - 40 mg/dL 05/04/2020 9:34 AM EST [facility] LDL/HDL Ratio 1.86 05/04/2020 9:34 AM EST [facility] Blood Line / Unknown 05/04/2020 8: 41 AM EST 05/04/2020 8:55 AM EST Narrative [facility] - 05/04/2020 9:34 AM EST Cholesterol [...] Very High >189 mg/dL us Nelsy Phelps APRN LAB BLOOD ORDERABLES Lee Ann howard Result [facility]
[address] [place] [address], from Last 3 Months or Most Recently [...] Of Support Discussed With: Patient Care Teams Replanting Machine Crew Relationship Specialty Start Date End Date Alisa Kunz DO [address] [place] [address] PCP - General Internal Medicine 04/26/21
--- OUTSIDE RECORDS SUMMARY | 2024-10-26 13:17 | XMS_ITS | Encounter Summary ---
[facility] Address [address] [place] [address] Care Team Providers Care Sales And Marketing Specialist Name Role Phone Alisa Kunz Primary Care Provider +1- [phone] Encounter Details Date Type Department Care Team (Latest Contact Info) Description 09/28/2024 Anticoagulation Visit [facility] [address] [facility] [address] [place] [address] Yancy Viveros, Insemination Worker Left ventricular apical thrombus (Primary Dx) Social [...] this encounter Progress Notes * Yancy Viveros, Insemination Worker - 09/28/2024 3:37 PM EDT [facility] Progress Note Patient Demographics Method of INR reporting: [employer] Home Monitor SN [id number] Estimated OOP Cost: Indication: Left Ventricular Atypical Thrombus (~2012) Referring Provider Nanette Pryor APRN Reason patient is not on a DOAC: Goal INR: 2-3 Warfarin Start Date ~02/12/24 Reason patient is not on home monitor: [id number]: Planned Duration of Therapy Indefinite Relevant medical [...] - HM 1.4 - Clinic 1.32 - CONSTRUCTION CARPENTERS HELPER 2.8 2.0 Notes Admitted [facility] Rec'd 05/27 [...] Verbal release: Signed 03/05/24 Preferred contact number: [phone] Alternative contact number(s): [phone] (Doron) [phone] (Ruthie) [phone] (Madyson) Patient Appropriate for WarfNoCall ? No [...] questions at this time. Yancy Viveros CPhT, [facility] 15:46 EDT 09/28/2024 IReema, PharmD, have reviewed the note in full and agree with the assessment and plan. 09/28/24 15:55 EDT documented in this encounter Plan of Treatment Upcoming Encounters Date Type Department Care Team (Late st Contact Info) Description 12/02/2024 3:30 PM EDT Office Visit [facility] [address] [address] [place] [address] Sujit Reyes MD [address] [facility] [address] [place], [place] [id number] 01/19/2025 1:45 PM EST Office Visit [facility] [address] [facility] [address] [place] [address] Naveen Velasquez MD [address] [facility] [address] [place] [address] documented as of this encounter Visit Diagnoses Diagnosis Left ventricular apical thrombus- Primary documented in this encounter Care Teams Sales And Marketing Specialist Relationship Specialty Start Date End Date Alisa Kunz DO [address] [place] [address] PCP - General Internal Medicine 04/26/21 documented as of this encounter
--- OUTSIDE RECORDS SUMMARY | 2024-10-26 13:17 | XMS_ITS | Encounter Summary ---
Author Organization [facility] Address [address] [place] [address] Care Team Providers Care Project Design Engineer Name Role Phone Alisa Kunz Primary Care Provider +1- [phone] Encounter Details Date Type Department Care Team (Late st Contact Info) Description 10/19/2024 Telephone [facility] [address] [facility] [address] [place] [address] Naveen Velasquez MD [address] [facility] [address] [place] [address] Social History Tobacco Use Types [...] Telephone Encounter - Halima Cortes RN - 10/20/2024 9:44 AM EDT Patient notified and aware. She will let us know when she has been therapeutic for 4 weeks. * Telephone Encounter - Halima Cortes RN - 10/19/2024 3:22 PM EDT Patient called to let you know that her INR was 2.14 today. She would like to know what the plan for her will be at this point? documented in this encounter Plan of Treatment Upcoming Encounters Date Type Department Care Team (Late st Contact Info) Description 12/02/2024 3:30 PM EDT Office Visit [facility] [address] [facility] [address] Sujit Reyes MD [address] [facility] [address] [place] [address] 01/19/2025 1:45 PM EST Office Visit [facility] [address] [place] [address] Naveen Velasquez MD [address] [place] [address] documented as of this encounter Visit Diagnoses Not on filedocumented in this encounter Care Teams Project Design Engineer Relationship Specialty Start Date End Date Alisa Kunz DO [address] [place] [address] PCP - General Internal Medicine 04/26/21 documented as of this encounter
--- OUTSIDE RECORDS SUMMARY | 2024-10-26 13:17 | XMS_ITS | Encounter Summary ---
[facility] Address [address] [place] [address] Care Team Providers Care Director Ehs Name Role Phone Alisa Kunz Primary Care Provider +1- [phone] Encounter Details Date Type Department Care Team (Latest Contact Info) Description 09/02/2024 Anticoagulation Visit [facility] [address] [facility] [address] [place] [address] Mike Mariee, Area Development Manager Left ventricular apical thrombus (Primary Dx) Social [...] this encounter Progress Notes * Mike Mariee, Area Development Manager - 09/02/2024 8:29 AM EDT [facility] Progress Note Patient Demographics Method of INR reporting: [employer] Home Monitor SN [id number] Estimated OOP Cost: Indication: Left Ventricular Atypical Thrombus (~2012) Referring Provider Nanette Pryor APRN Reason patient is not on a DOAC: Goal INR: 2-3 Warfarin Start Date ~02/12/24 Reason patient is not on home monitor: [id number]: Planned Duration of Therapy Indefinite Relevant medical [...] - HM 1.4 - Clinic 1.32 - GUNNER'S MATE M 2.8 Notes Admitted [facility] Rec'd 05/27 HM 1-BILL TODAY HM 2- no leonid; In clinic HM 3 - no bill HM 4 - no bill HM 1- BILL TODAY HM 2 - no bill Rec'd 08/11 HM 3 - no bill HM 4- no bill Rec'd 09/02 Patient Contact Information Verbal release: Signed 03/05/24 Preferred contact number: [phone] Alternative contact number(s): [phone] (Doron) [phone] (Ruthie) [phone] (Madyson) Patient Appropriate for WarfNoCall ? No [...] strips on hand: 6 09/02/24 Barcode number: [id number] Test strip LOT: [id number] EXP: 03/2026 Serial number: [id number]) [id number] Supplies billing code used: last 08/04/24] - Next must be on or after 09/01/24 Transfer Tube Lot number: [id number] Safety Lancets: Lot: Exp: Billing: bill must be completed every 4th encounter that falls outside of 28 days from last visit PLEASE REFER TO ANTICOAGULATION TRAINING POWERPOINT FOR BILLING. Needs to use in clinic remote appointment for encounter. Mike Mariee [facility] 09/02/2024 08:42 EDT I, Reema Beal, PharmD, have reviewed the note in full and agree with the assessment and plan. 09/02/24 09:05 EDT documented in this encounter Plan of Treatment Upcoming Encounters Date Type Department Care Team (Late st Contact Info) Description 12/02/2024 3:30 PM EDT Office Visit [facility] CARDIOLOG[facility] [address] [place] [address] [place] [address] Sujit Reyes MD [address] [place] [address] 01/19/2025 1:45 PM EST Office Visit [facility] [address] [place] [address] Naveen Velasquez MD [address] [place] [address] documented as of this encounter Procedures Procedure Name Priority Date/Time Associated Diagnosis Comments PROTIME-INR Routine 09/01/2024 documented in this encounter Results * Protime-INR (09/01/2024) INR 2.80 Blood 09/01/2024 Historical Provider LAB BLOOD ORDERABLES Lee Ann l Result documented in this encounter Visit Diagnoses Diagnosis Left ventricular apical thrombus- Primary documented in this encounter Care Teams Director Ehs Relationship Specialty Start Date End Date Alisa Kunz DO [address] [place] [address] PCP - General Internal Medicine 04/26/21 documented as of this encounter
--- OUTSIDE RECORDS SUMMARY | 2024-10-26 13:18 | XMS_ITS | Encounter Summary ---
Author Organization [facility] Address [address] [place] [address] Care Team Providers Care House Cleaner Name Role Phone Alisa Kunz Primary Care Provider +1- [phone] Encounter Details Date Type Department Care Team (Latest Contact Info) Description 06/14/2024 Anticoagulation Visit [facility] [address] [facility] [address] [place] [address] Mike Mariee, Sales And Service Associate Left ventricular apical thrombus (Primary Dx) Social [...] Description 12/02/2024 3:30 PM EDT Office Visit [facility]IOLOG[facility] [address] [facility] [place] [address] Sujit Reyes MD [address] [facility] [address] [place] [address] 01/19/2025 1:45 PM EST Office Visit [facility] [address] [facility] [address] [place] [address] Naveen Velasquez MD [address] [facility] [address] [place] [address] documented as of this encounter Visit Diagnoses Diagnosis Left ventricular apical thrombus- Primary documented in this encounter Care Teams House Cleaner Relationship Specialty Start Date End Date Alisa Kunz DO [address] [place], [place] [id number] PCP - General Internal Medicine 04/26/21 documented as of this encounter
[2024-10-26 14:11] LABS: INR 2.68 (0.9-1.1); Prothrombin Time 27.7 seconds (10.1-12.5)
== END 2024-10-26 23:59 | disposition home or self-care (01) ==
LOC: LAB 13:06
PROVIDERS: PCP Internal Medicine; Visit Provider Nurse Practitioner Gerontology
DX: I24.0 Acute coronary thrombosis not resulting in myocardial infarction (principal); I51.3 Intracardiac thrombosis, not elsewhere classified
CPT/HCPCS: 36415; 85610

== ENCOUNTER 2024-11-02 12:55 | Outpatient (CLI) | payer MEDICARE, SELFPAY ==
--- OUTSIDE RECORDS SUMMARY | 2019-03-15 14:10 | XMS_ITS | Encounter Summary ---
[facility] [address] [place] [address] Care Team Providers Care Machinist Job Setter Name Role Phone Jackson Malave MD Primary Care Provid er Reason for Referral * Hospital - Outpatient (Routine) - Closed Specialty Diagnoses / Procedures Referred By Luis Armando Referred To Contact Sleep Medicine Diagnoses EWELINA (obstructive sleep apnea) Fatigue, unspecified type Procedures Home Sleep Study Jesu Duarte MD Phone: tel: fax: [facility] [address] [place] [phone] Phone: tel: fax: Referral ID Status Reason Start Date Expiration Date Visits Re quested Visits Authorized [id number] Closed 02/09/2019 02/09/2020 1 1 Reason for Visit * Hospital - Outpatient (Routine) - Closed Specialty Diagnoses / Procedures Referred By Contdarwin t Referred To Contact Sleep Medicine Diagnoses EWELINA (obstructive sleep apnea) Fatigue, unspecified type Procedures Home Sleep Study Jesu Duarte MD Phone: tel: fax: [facility] [address] [facility] [address] [place] [address] Phone: tel: fax: Referral ID Status Reason Start Date Expiration Date Visits Re quested Visits Authorized [id number] Closed 02/09/2019 02/09/2020 1 1 Encounter Details Date Type Department Care Team (Late st Contact Info) Description 03/15/2019 1:10 PM EST Hospital Encounter [facility] [address] [facility] [address] [place] [address] Jesu Duarte MD [address] [place] [address] EWELINA (obstructive sleep apnea); Fatigue, [...] 10:26 AM EDT Cece Prieto RN * [employer] Suicide Severity Rating Scale (Screener/Recent Self-Report) Question Answer Date of Assessment Author 6. Suicidal Behavior (Lifetime) No 10:26 AM EDT Cece Prieto RN documented as of this encounter Plan of Treatment Upcoming Encounters Date Type Department Care Team (Late st Contact Info) Description 12/02/2024 3:30 PM EDT Office Visit [facility] [address] [facility] [place] [place] [address] Sujit Reyes MD [facility] [address] [place] [address] 01/19/2025 1:45 PM EST Office Visit [facility] [address] [place] [address] Naveen Velasquez MD [address] [place] [address] documented as of this encounter Procedures Procedure [...] had a home sleep test with an [employer] Night One device that measured airflow at [...] documented as of this encounter Care Teams Machinist Job Setter Relationship Specialty Start Date End Date Jackson Malave MD PCP - General Internal Medicine 12/09/18 04/25/21 documented as of this encounter
--- OUTSIDE RECORDS SUMMARY | 2024-09-08 11:20 | XMS_ITS | Encounter Summary ---
Author Organization [facility] Address [address] [place] [address] Care Team Providers Care International Representative Name Role Phone Alisa Kunz DO Primary Care Provider [phone] Kodi Bustos DO Unavailable [phone] Sujit Arriola MD Unavailable [phone] Sujit Reyes MD Unavailable [phone] Patricia Yañez LPN Unavailable Unavailab Zee Lr DO Unavailable [phone] Reason for Referral * Imaging (Urgent) - Closed Specialty Diagnoses / Procedures Referred By Contdarwin t Referred To Contact Cardiology Diagnoses Localized swelling, mass and lump, left upper limb Procedures VAS US Venous Duplex Upper Extremity Unilateral Left Alisa Kunz DO [address] [address] Phone: tel: fax: Referral ID Status Reason Start Date Expiration Date V isits Requested Visits Authorized [id number] Closed Perform Procedure 09/08/2024 03/10/2026 1 1 Encounter Details Date Type Department Care Team (Late st Contact Info) Description 09/08/2024 11:20 AM EDT Office Visit [facility] Internal Medicine [address] [place] [address] Alisa Kunz, [address] [place] [address] Shortness of breath (Primary Dx); [...] 08/30/2022 How often do you attend [facility] or taoist services? 1 to 4 times per year 08/30/2022 Do you belong to any clubs o r organizations such as restorationist groups, unions, fraternal or athletic groups, or [...] Recorded Patient Health Questionnaire-2 Score 0 09/08/2024 [employer] of Occupat ional Health - Occupational Stress [...] in a longterm (including now)? No 05/27/2024 Humiliation, Afraid, Rape, [...] living in a longterm (including now)? No 09/17/2024 CAGE ASSESSMENT Answer [...] drink first t anselmo in the morning (EYE-DUBBING MACHINE OPERATOR) to steady your nerves or [...] way Not at all 09/08/2024 11:19 AM JANET Shashank Burrows Patient Health Questionnaire -9 Score [...] Month) No 025 8:00 AM EDT Sunny Ramirez, EVITA 2. Non-Specific Active Suici dillon Thoughts (Past 1 Month) No 09/15/2024 8:00 AM EDT Flora Ramirez RN 6. 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 Decreased medical office professional instructor strength in left hand s/t swelling. Otherwise [...] (08/17/24) showing mild pHTN. - Follows with [facility]. - Continue home Lasix 40 mg [...] PCP, on 10/18/2024 Zee Lazar DO PGY-1, [facility] Internal Medicine [1] Past Medical History: Diagnosis [...] or viral conjunctivitis vs. Scleritis. - Needs [facility] eye exam. - Was ableto get patient in with [facility] ophthalmology right after our clinic [...] CARDIAC PACEMAKER PLACEMENT N/A Pacemaker Placement from [employer] CARPAL TUNNEL RELEASE N/A Neuroplasty Decompression Median Nerve At Carpal Tunnel from [employer] CERVICAL BIOPSY W/ LOOP ELECTRODE EXCISION 2010 SECTION, CLASSIC 1977, 1979 SECTION, LOW TRANSVERSE N/A Section from [employer] COLONOSCOPY N/A Complete Colonoscopy from [facility] CORONARY ARTERY BYPASS GRAFT N/A CABG from [facility] EYE SURGERY N/A Eye Surgery from [facility] FRACTURE SURGERY SPINE SURGERY THORACENTESIS TOE SURGERY Left 02/07/2024 hematoma removal of upper skin on L big toe TONSILLECTOMY N/A Tonsillectomy from [facility] [3] Family History Problem Relation Name Age of Onset Conversions - Other Mother cindi stamper alfredito kelin Goiter (Diffuse Nontoxic) Heart disease Mother cindi stamper alfredito kelin Hypertension Mother cindi stamper alfredito kelin Stroke Mother cindi stamper alfredito kelin COPD Mother cindi stamper alfredito kelin Alpha-1 antitrypsin deficiency Mother cindi stamper alfredito kelin Arthritis Father Doron E [place] Hypercholesterolemia Father Doron E [place] Obesity Father Doron E Alfredito COPD Father Doron E [place] Alcohol abuse Father Doron E Alfredito Diabetes Sibling Cancer Other Doron E Alfredito Conversions - Other Other Goiter (Diffuse Nontoxic) Heart disease Other Cindi Marry Stamper Alfredito Kelin Cosigned by Alisa Kunz DO at [...] Care Team (Late st Contact Info) Description 12/06/2024 11:20 AM EDT Office Visit [facility] Internal Medicine [address] [place] [address] Alisa Kunz DO [address] [place] [phone] 12/23/2024 4:00 PM EDT Office Visit [facility] Medicine Specialties [address] [place] [phone] Lavern Shoemaker MD [address] [place], [place] [id number] 02/02/2025 8:40 AM EST Office Visit [facility] Internal Medicine [address] [place] [address] Alisa Kunz L, DO [address] [place] [address] 02/09/2025 12:20 PM EST Office Visit [facility] Endocrinology [address] [place] [phone] Anne-Marie Kolb L, BOX SEALING MACHINE OPERATOR [address] [facility] [address] [place] [phone] documented as of this encounter Procedures Procedure [...] MD on 09/08/2024 4:46 PM us Alisa Wild Ze DO IMG XR PROCEDURES Final Result * (ABNORMAL) Comprehensive metabolic panel (09/08/2024 1:33 PM EDT) Glucose, Plasma 247(H) 74 - 99 mg/dL 09/08/2024 4:06 PM EDT [facility] BUN, Plasma 24(H) 8 - 23 mg/dL 09/08/2024 4:06 PM EDT [facility] Creatinine, Plasma 0.92 0.60 - 1.10 mg/dL 09/08/2024 4:06 PM EDT [facility] BUN/Creatinine Ratio 26 09/08/2024 4:06 PM EDT [facility] Sodium, Plasma 131(L) 136 - 145 mmol/L 09/08/2024 4:06 PM EDT [facility] Potassium, Plasma 4.0 3.6 - 4.9 mmol/L 09/08/2024 4:06 PM EDT [facility] Chloride, Plasma 90(L) 97 - 107 mmol/L 09/08/2024 4:06 PM EDT [facility] CO2, Plasma 27 22 - 29 mmol/L 09/08/2024 4:06 PM EDT [facility] Anion Gap 14 6 - 16 mmol/L 09/08/2024 4:06 PM EDT [facility] Total Calcium, Plasma 8.9 8.9 - 10.2 mg/dL 09/08/2024 4:06 PM EDT [facility] Total Protein 7.4 6.3 - 7.9 g/dL 09/08/2024 4:06 PM EDT [facility] Albumin, Plasma 3.4(L) 3.5 - 5.2 g/dL 09/08/2024 4:06 PM EDT [facility] AST, Plasma 34 10 - 35 U/L 09/08/2024 4:06 PM EDT [facility] ALT, Plasma 25 10 - 35 U/L 09/08/2024 4:06 PM EDT [facility] Alkaline Phosphatase, Plasma 116 46 - 142 U/L 09/08/2024 4:06 PM EDT [facility] Total Bilirubin, Plasma 0.4 0.2 - 1.1 mg/dL 09/08/2024 4:06 PM EDT [facility] eGFRcr 65.9 mL/min/1.7 3m*2 09/08/2024 4:06 PM EDT [facility] Comment:Reported eGFRcr in m L/min/1.73m2 is based the CKD-EPI 2020 equation that does not use a race coefficient. Blood Venous blood specimen / Unknown Venipuncture / Unknown 09/08/2024 1:33 PM EDT 09/08/2024 1:33 PM EDT us Alisa L Ze DO LAB BLOOD ORDERABLES Final Res ult [facility] [address] [place] [address] * (ABNORMAL) CBC and Differential (09/08/2024 1:33 PM EDT) WBC Count 7.66 3.70 - 10.30 10*3/uL LAB HEMATOLOGY METHOD 09/08/2024 4:11 PM EDT [facility] RBC Count 3.47(L) 3.90 - 5.20 10*6/uL LAB HEMATOLOGY METHOD 09/08/2024 4:11 PM EDT [facility] HGB 10.2(L) 11.2 - 15.7 g/dL LAB HEMATOLOGY METHOD 09/08/2024 4:11 PM EDT [facility] HCT 32.8(L) 34.0 - 45.0 % LAB HEMATOLOGY METHOD 09/08/2024 4:11 PM EDT [facility] Platelet Count 534(H) 155 - 369 10*3/uL LAB HEMATOLOGY METHOD 09/08/2024 4:11 PM EDT [facility] MCV 95 79 - 98 fL LAB HEMATOLOGY METHOD 09/08/2024 4:11 PM EDT [facility] MCH 29.4 26.0 - 32.0 pg LAB HEMATOLOGY METHOD 09/08/2024 4:11 PM EDT [facility] MCHC 31.1 30.7 - 35.5 g/dL LAB HEMATOLOGY METHOD 09/08/2024 4:11 PM EDT [facility] RDW 15.4(H) 11.5 - 14.5 % LAB HEMATOLOGY METHOD 09/08/2024 4:11 PM EDT [facility] MPV 9.3 8.8 - 12.5 fL LAB HEMATOLOGY METHOD 09/08/2024 4:11 PM EDT [facility] nRBC 0.0 <=0.0 per 100 WBCs LAB HEMATOLOGY METHOD 09/08/2024 4:11 PM EDT [facility] Differential Type Automated LAB HEMATOLOGY METHOD 09/08/2024 4:11 PM EDT [facility] Neutrophils % 80 % LAB HEMATOLOGY METHOD 09/08/2024 4:11 PM EDT [facility] Lymphocytes % 8 % LAB HEMATOLOGY METHOD 09/08/2024 4:11 PM EDT [facility] Monocytes % 9 % LAB HEMATOLOGY METHOD 09/08/2024 4:11 PM EDT [facility] Eosinophils % 1 % LAB HEMATOLOGY METHOD 09/08/2024 4:11 PM EDT [facility] Basophils % 1 % LAB HEMATOLOGY METHOD 09/08/2024 4:11 PM EDT [facility] Immature Granulocytes % 1 % LAB HEMATOLOGY METHOD 09/08/2024 4:11 PM EDT [facility] Neutrophils Absolute 6.18(H) 1.60 - 6.10 10*3/uL LAB HEMATOLOGY METHOD 09/08/2024 4:11 PM EDT [facility] Lymphocytes Absolute 0.64(L) 1.20 - 3.90 10*3/uL LAB HEMATOLOGY METHOD 09/08/2024 4:11 PM EDT [facility] Monocytes Absolute 0.65 0.30 - 0.90 10*3/uL LAB HEMATOLOGY METHOD 09/08/2024 4:11 PM EDT [facility] Eosinophils Absolute 0.06 0.00 - 0.50 10*3/uL LAB HEMATOLOGY METHOD 09/08/2024 4:11 PM EDT [facility] Basophils Absolute 0.08 0.00 - 0.10 10*3/uL LAB HEMATOLOGY METHOD 09/08/2024 4:11 PM EDT [facility] Immature Granulocytes Absolute 0.05 0.00 - 0.06 10*3/uL LAB HEMATOLOGY METHOD 09/08/2024 4:11 PM EDT [facility] Blood Venous blood specimen / Unknown Venipuncture / Unknown 09/08/2024 1:33 PM EDT 09/08/2024 1:33 PM EDT [facility] - 09/08/2024 4:11 PM EDT Therapeutic decision making should be based on absolute values, rather than percentages. us Alisa L Ze DO LAB BLOOD ORDERABLES Final Res ult Performing Organization Address City/[facility] [address]/ZIP Co de Phone Number [facility] [address] [place] [address] * Ferritin (09/08/2024 1:33 PM EDT) Ferritin, Serum 102 13 - 150 ng/mL 09/08/2024 4:37 PM EDT [facility] Blood Venous blood specimen / Unknown Venipuncture / Unknown 09/08/2024 1:33 PM EDT 09/08/2024 1:33 PM EDT us Alisa L Ze DO LAB BLOOD ORDERABLES Final Res ult Performing Organization Address [facility] [address]/ZIP Co de Phone Number [facility] [address] [place] [address] * (ABNORMAL) Iron & Total Iron Binding Capacity, Plasma (Includes Transferrin) (09/08/2024 1:33 PM EDT) Iron, Plasma 26(L) 30 - 160 ug/dL 09/08/2024 4:06 PM EDT [facility] Transferrin, Plasma 262 200 - 360 mg/dL 09/08/2024 4:06 PM EDT [facility] Total Iron Binding Capacity, Plasma 328 240 - 450 ug/mL 09/08/2024 4:06 PM EDT [facility] Transferrin Saturation 8(L) 14 - 50 % 09/08/2024 4:06 PM EDT [facility] Blood Venous blood specimen / Unknown Venipuncture / Unknown 09/08/2024 1:33 PM EDT 09/08/2024 1:33 PM EDT us Alisa L Ze DO LAB BLOOD ORDERABLES Final Res ult Performing Organization Address [facility] [address]/ZIP Co de Phone Number [facility] [address] [place] [address] * SARS-CoV-2, Flu A, Flu B, and RSV (09/08/2024 1:09 PM EDT) SARS CoV-2/COVID-19 RNA PCR Result Not Detected Not Detected 09/09/2024 10:48 AM EDT [facility] Influenza A Virus PCR Result Not Detected Not Detected 09/09/2024 10:48 AM EDT [facility] Influenza B Virus PCR Result Not Detected Not Detected 09/09/2024 10:48 AM EDT [facility] Respiratory Syncytial Virus (RSV) PCR Result Not Detected Not Detected 09/09/2024 10:48 AM EDT [facility] Swab Nasopharyngeal structure / Unknown Non-blood Collection / Unknown 09/08/2024 1:09 PM EDT 09/08/2024 4:50 PM EDT Narrative [facility] - 09/09/2024 10:48 AM EDT This [...] testing. This test was performed on the [employer] Respiratory Viral Panel, a PCR-based method. Negative [...] MICROBIOLOGY - GENERAL ORD ERABLES Final Result [facility] [address] [place] [address] documented in this encounter Visit Diagnoses Diagnosis [...] Time PHQ-9 Depression Total Score: 0 09/09/19 11:19 AM EDT A fall risk assessment has been complete d for the patient 09/08/2024 11:19 AM EDT A Body Mass Index follow-up plan has been documented for the patient 09/08/2024 1:18 PM EDT documented as of this encounter Care Teams International Representative Relationship Specialty Start Date End Date Alisa Kunz DO [address] [place] [address] PCP - General Internal Medicine 03/13/21 Kodi Bustos DO [address] [phone] Surgeon Cardiothoracic Surgery 11/06/22 Sujit Arriola MD [address] [place] [address] Consulting Physician Pulmonary Disease 11/06/22 Sujit Reyes MD [address] [place] [address] Referring Physician 12/04/22 Patricia Yañez LPN [facility] TCM Nurse 08/25/24 10/17/24 Zee Lazar DO [address] [place], [place] [phone] Resident 09/08/24 documented as of this encounter
--- OUTSIDE RECORDS SUMMARY | 2024-09-08 13:36 | XMS_ITS | Encounter Summary ---
Author Organization [facility] Address [address] [place] [address] Care Team Providers Care Automobile Glass Technician Name Role Phone Alisa Kunz DO Primary Care Provider [phone] Kodi Bustos DO Unavailable [phone] Sujit Arriola MD Unavailable [phone] Sujit Reyes MD Unavailable [phone] Patricia Yañez LPN Unavailable Unavailab Zee Lr DO Unavailable [phone] Encounter Details Date Type Department Care Team (Latest Contact Info) Description 09/08/2024 1:36 PM EDT - 09/08/2024 1:54 PM EDT [facility] [address], [address] [place] [phone] Shortness of breath Discharge Disposition: Home or Self Care Social [...] Recorded Patient Health Questionnaire-2 Score 0 09/08/2024 [facility] of Occupat ional [...] time in the past 12 m [facility], were you homeless or living in a [...] the money to buy more. Never true 09/14/19 Within the past 12 months, t he food you bought just didn't last and you didn't have money to get more. Never true 09/13/2024 PRAPARE - Transportation Answer Date Re corded In the past 12 months, has l ack of transportation kept you from medical appointments or from getting medications? No 09/2024 In the past 12 months, has l ack of transportation kept you from meetings, work, or from getting things needed for daily living? No 09/13/2024 Housing Stability Vital Sign Answer Hong e Recorded In the last 12 months, was t here a time when you were not able to pay the mortgage or rent on time? No 09/13/2024 Number of Times Moved in the Last Year Not on fi le 09/13/2024 At any time in the past 12 m [facility], were you homeless or living in a longterm (including now)? No 09/13/2024 CAGE ASSESSMENT Answer Date Recorded Cage unable [...] drink first t anselmo in the morning (EYE-PIN PUSHER) to steady your nerves or to get rid of a hangover? 0 08/14/2024 CAGE Questionnaire Score 0 025 Utilities Answer Date Recorded In the past 12 months has th e [employer], gas, oil, or water company threatened to shut off services in your home? No 09/13/2024 PHQ-2A Answer Date Recorded Depression Risk 0 [...] at all 09/08/2024 11:19 AM EDT Shashank Frais Trouble concentrating on thi ngs, such as [...] Risk Indicated 09/15/2024 8:00 AM EDT Sunny Ramirez RN * If you checked off any [...] (Past 1 Month) No 025 8:00 AM EDSunny Bang RN 2. Non-Specific Active Suici dillon Thoughts (Past 1 Month) No 09/15/2024 8:00 AM JANET Flora Ramirez RN 6. Suicidal Behavior (Lifetime) No 8:00 AM JANET Sunny Ramirez RN documented as of this encounter Medications [...] DIAL)Indications:T ype 1 diabetes mellitus with hyperglycemia ([facility]) Inject 14 Units under the skin every morning. 4.5 mL 3 08/04/2024 insulin lispro (HumaLOG KWIKPEN) 100 UNIT/ML injection penIndications:Typ e 1 diabetes mellitus with hyperglycemia ([facility]) Inject 2-6 units before meals plus 1:60>150. [...] 1 tablet by mouth every morning. 04/13/2020 mycophenolate (CellCept) 500 MG tabletIndications: Systemic lupus erythematosus (SLE) in adult ([facility]) Take 2 tablets by mouth 2 times a day. 360 tablet 1 08/27/2024 oxygen (O2) gas Inhale 2 L nightly. via nasal canula Probiotic Product (acidophilus probiotic blend) capsule Take 1 capsule by mouth daily. warfarin (Coumadin) 5 MG tablet Take 2.5 [...] tabletIndications: Systemic lupus erythematosus (SLE) in adult ([facility]) Take 1 tablet by mouth daily. 90 tablet 1 07/21/2024 5 nitroglycerin (Nitrostat) 0.[address] 1 tablet under the tongue every 5 minutes as needed for chest pain. 5 Pitavastatin Calcium (Livalo) 4 MG tabletIndications: Type 1 diabetes mellitus with other specified complication (CMS/HCC),Dyslipid emia Take 1 tablet by mouth daily. 90 tablet 09/06/2024 5 Probiotic Product (acidophilus probiotic blend) capsule Take 1 capsule by mouth every morning. 5 spironolactone (Aldactone) 25 MG tablet Take 0.25 tablets by mouth daily. 30 tablet 07/20/2024 5 documented as of this encounter Plan of Treatment Upcoming Encounters Date Type Department Care Team (Late st Contact Info) Description 12/06/2024 11:20 AM EDT Office Visit [facility] Internal Medicine [address] [place] [phone] Alisa Kunz L, DO [address] [place] [address] 12/23/2024 4:00 PM EDT [facility] Visit [facility] Specialties [address], [address] [place] [phone] Lavern Shoemaker MD [address] [place], [place] [phone] 02/02/2025 8:40 AM EST Office Visit [facility] Internal Medicine [address], [address] [place] [address] Alisa Kunz L, DO [address] [place] [address] 02/09/2025 12:20 PM EST Office Visit [facility] Endocrinology [address] [place] [phone] Anne-Marie Kolb L, FIELD PLACEMENT DIRECTOR [address] [facility] [address] [place] [address] documented as of this encounter Procedures Procedure Name Priority Date/Time Associated Diagnosis Comments XR CHEST 2 VIEWS Routine 09/08/2024 1:50 PM EDT Shortness of breath documented in this encounter Results * XR Chest 2 Views (09/08/2024 1:50 [...] signing this report, I, the attending physician, shwetha I have personally reviewed the images/data for the aboveexamination(s) and agree with the final edited report. Drafted by Rose Browning on 09/08/2024 3:47 PM Final report signed by Amanda Chatman MD on 09/08/2024 4:46 PM Alisa Kunz DO IMG XR PROCEDURES Final Result documented in this encounter Visit Diagnoses Diagnosis Shortness of breath documented in this encounter [...] documented as of this encounter Care Teams Automobile Glass Technician Relationship Specialty Start Date End Date Alisa Kunz DO [address] [place] [address] PCP - General Internal Medicine 03/13/21 Kodi Bustos, DO [address] [address] Surgeon Cardiothoracic Surgery 11/06/22 Sujit Arriola MD [address] [place] [address] Consulting Physician Pulmonary Disease 11/06/22 Sujit Reyes MD [address] [place] [address] Referring Physician 12/04/22 Patricia Yañez LPN [facility] TCM Nurse 08/25/24 10/17/24 Zee Lazar DO [address] [place], [place] [phone] Resident 09/08/24 documented as of this encounter
--- OUTSIDE RECORDS SUMMARY | 2024-09-08 13:55 | XMS_ITS | Encounter Summary ---
Author Organization [facility] Address [address] [place] [address] Care Team Providers Care Reservation Sales Agent Name Role Phone Alisa Kunz DO Primary Care Provider [phone] Kodi Bustos DO Unavailable [phone] Sujit Arriola MD Unavailable [phone] Sujit Reyes MD Unavailable [phone] Patricia Yañez LPN Unavailable Unavailab Zee Lr DO Unavailable [phone] Reason for Referral * Imaging (Urgent) - Closed Specialty Diagnoses / Procedures Referred By Contac t Referred To Contact Cardiology Diagnoses Localized swelling, mass and lump, left upper limb Procedures VAS US Venous Duplex Upper Extremity Unilateral Left Alisa Kunz DO [address] [address] Phone: tel: fax: Referral ID Status Reason Start Date Expiration Date V isits Requested Visits Authorized [id number] Closed Perform Procedure 09/08/2024 03/10/2026 1 1 Reason for Visit * Imaging (Urgent) - Closed Specialty Diagnoses / Procedures Referred By Contac t Referred To Contact Cardiology Diagnoses Localized swelling, mass and lump, left upper limb Procedures VAS US Venous Duplex Upper Extremity Unilateral Left Ze, Alisa L, DO [address] [place] [address] Phone: tel: fax: Referral ID Status Reason Start Date Expiration Date V isits Requested Visits Authorized [id number] Closed Perform Procedure 09/08/2024 03/10/2026 1 1 Encounter Details Date Type Department Care Team (Latest Contact Info) Description 09/08/2024 1:55 PM EDT - 09/08/2024 11:59 PM EDT [facility] En[facility] [address] [place] [address] Localized swelling, mass and lump, left upper limb Discharge Disposition: Home or Self Care Social [...] Recorded Patient Health Questionnaire-2 Score 0 09/08/2024 [facility] of Occupat ional [facility] - Occupational Stress Questionnaire Answer Date [...] a senior living (including now)? No 05/27/2024 Humiliation, Afraid, Rape, [...] any time in the past 12 m [facility], were you homeless or living in a senior living (including now)? No 09/13/2024 CAGE ASSESSMENT Answer [...] drink first t anselmo in the morning (EYE-TYPESETTERS PRINTER) to steady your nerves or to get rid of a hangover? 0 08/14/2024 CAGE Questionnaire Score 0 025 Utilities Answer Date Recorded In the past 12 months has th e [employer], oil, or water [employer] threatened to shut off services in your [...] (Past 1 Month) No 025 8:00 AM JANET Sunny Ramirez RN 2. Non-Specific Active Suici [...] DIAL)Indications:T ype 1 diabetes mellitus with hyperglycemia ([facility]) Inject 14 Units under the skin every morning. 4.5 mL 3 08/04/2024 6 insulin lispro (HumaLOG KWIKPEN) 100 UNIT/ML injection penIndications:Typ e 1 diabetes mellitus with hyperglycemia ([facility]) Inject 2-6 units before meals [...] tabletIndications: Systemic lupus erythematosus (SLE) in adult ([facility]) Take 2 tablets by mouth [...] tabletIndications: Systemic lupus erythematosus (SLE) in adult ([facility]) Take 1 tablet by mouth daily. 90 tablet 1 07/21/2024 5 nitroglycerin (Nitrostat) 0.[address] 1 tablet under the tongue every 5 minutes as needed for chest pain. 5 Pitavastatin Calcium (Livalo) 4 MG tabletIndications: Type 1 diabetes mellitus with other specified complication ([facility]),Dyslipid emia Take 1 tablet by mouth daily. [...] Description 12/06/2024 11:20 AM EDT Office Visit [facility] Internal Medicine [address]rd [place] [address] Alisa Kunz, DO [address] [phone] 12/23/2024 4:00 PM EDT [facility] Visit [facility] Medicine Specialties [address] [place] [address] Lavern Shoemaker MD [address] [place] [address] 02/02/2025 8:40 AM EST Office Visit [facility] Internal Medicine [address], [address] [place] [address] Alisa Kunz, DO [address] [phone] 02/09/2025 12:20 PM EST Office Visit [facility] Endocrinology [address] [place] [address] Anne-Marie Kolb, LOCAL COMBINATION TRUCK DRIVER [address] [place] [address] documented as of this encounter Procedures Procedure Name Priority Date/Time Associated Diagnosis Comments VAS US VENOUS DUPLEX UPPER EXTREMITY UNILATERAL STAT 09/08/2024 2:33 PM EDT Localized swelling, mass and lump, left upper limb documented in this encounter Results * VAS [...] DO CV VASCULAR PROCEDURES Final R esult documented in this encounter Visit Diagnoses Diagnosis Localized swelling, mass and lump, left upper limb documented in this encounter Additional Health Concerns [...] documented as of this encounter Care Teams Reservation Sales Agent Relationship Specialty Start Date End Date Alisa Kunz DO [address] [address] PCP - General Internal Medicine 03/13/21 Kodi Bustos DO [address] [address] Surgeon Cardiothoracic Surgery 11/06/22 Sujit Arriola MD [address] [place] [address] Consulting Physician Pulmonary Disease 11/06/22 Sujit Reyes MD [address] [place] [address] Referring Physician 12/04/22 Patricia Yañez LPN [facility] TCM Nurse 08/25/24 10/17/24 Zee Lazar DO [address] [place], [place] [phone] Resident 09/08/24 documented as of this encounter
--- OUTSIDE RECORDS SUMMARY | 2024-09-22 11:30 | XMS_ITS | Encounter Summary ---
[facility] Organization [facility] Address [address] [place] [address] Care Team Providers Care Roll Up Machine Operator Name Role Phone Alisa Kunz Primary Care Provider +1- [phone] Encounter Details Date Type Department Care Team (Latest Contact Info) Description 09/22/2024 11:30 AM EDT Anticoagulation Visit [facility] 1720 [facility] [address] [place] [phone] Left ventricular apical thrombus (Primary Dx) Social [...] Beal, PharmD - 09/22/2024 11:30 AM EDT [facility] Anticoagulation Clinic Progress Note Patient Demographics Method of INR reporting: [employer] Home Monitor SN [id number] Estimated OOP Cost: Indication: Left Ventricular Atypical Thrombus (~2012) Referring Provider Nanette Pryor APRN Reason patient is not on a DOAC: Goal INR: 2-3 Warfarin Start Date ~02/12/24 Reason patient is not on home monitor: [id number]: Planned Duration of Therapy Indefinite Relevant medical [...] - HM 1.4 - Clinic 1.32 - SMALL ORDER CUTTER 2.8 2.0 Notes Admitted [facility] Rec'd 05/27 [...] Verbal release: Signed 03/05/24 Preferred contact number: [phone] Alternative contact number(s): [phone] (Doron) [phone] (Ruthie) [phone] (Madyson) Patient Appropriate for WarfNoCall ? No [...] at this time. Order sent to [facility] Reema Beal PharmD 09/22/2024 12:04 EDT documented in this encounter Plan of Treatment Upcoming Encounters Date Type Department Care Team (Late st Contact Info) Description 12/02/2024 3:30 PM EDT Office Visit [facility] CARDIOLOG[facility] [address] [place] [address] [address] Sujit Reyes MD 1720 [facility] [address] [id number] 01/19/2025 1:45 PM EST Office Visit [facility] C[facility] [address] [phone] Naveen Velasquez MD 1720 [facility] E [address] [place] [address] documented as of this encounter Procedures Procedure Name Priority Date/Time Associated Diagnosis Comments POCT PROTIME - INR Routine 09/22/2024 11 :47 AM EDT documented in this encounter Results * (ABNORMAL) POC Protime / INR (09/22/2024 11:47 AM EDT) Protime 24.2(H) 10.0 - 13.8 seconds 09/22/2024 11:49 AM EDT [facility] INR 2.0(H) 0.91 - 1.09 09/22/2024 11:49 AM EDT [facility] Blood 09/22/2024 11:4 7 AM EDT 09/22/2024 11:49 AM EDT LUIS Dimas POINT OF CARE TEST ORDERAB LES Final Result [facility]
[address] [place] [address], documented in this encounter Visit Diagnoses Diagnosis Left ventricular apical thrombus- Primary documented in this encounter Care Teams Roll Up Machine Operator Relationship Specialty Start Date End Date Alisa Kunz DO [address] [place] [address] PCP - General Internal Medicine 04/26/21 documented as of this encounter
--- OUTSIDE RECORDS SUMMARY | 2024-09-27 13:20 | XMS_ITS | Encounter Summary ---
Author Organization [facility] Address [address] [place] [address] Care Team Providers Care Child Nutrition Assistant Name Role Phone Alisa Kunz Torri DO Primary Care Provider Kodi Bustos DO Unavailable [phone] Sujit Arriola MD Unavailable [phone] Sujit Reyes MD Unavailable [phone] Patricia Yañez LPN Unavailable Unavailab Zee Lr DO Unavailable [phone] Reason for Visit * Reason Comments Follow-up Encounter Details Date Type Department Care Team (Late st Contact Info) Description 09/27/2024 1:20 PM EDT Office Visit [facility] Discharge Clinic [address] [place] [address] Ashley, June R, DIVISION SUPERINTENDENT [address] [place] [phone] Pleural effusion (Primary Dx); Longstanding persistent atrial [...] often do you attend chur ch or jehovah's witness services? 1 to 4 [...] Recorded Patient Health Questionnaire-2 Score 0 09/08/2024 [facility] [...] drink first t anselmo in the morning (EYE-REGASIFICATION PLANT OPERATOR) to steady your nerves or to [...] We have made you an appointment with [facility] Coumadin Clinic (Anticoagulation Clinic) as we discussed. Your appointment is on 09/28/24 at 1:00PM - Clinic staff recommended to also review your myChart if you need additional appointment details. [facility] Anticoagulation Clinic [address], [address] [place] [address] Phone number: [phone] Go immediately to the ER with any chest pain/palpitations/shortness of breath, seizure like activity, or stroke like symptoms (for example but not limited to: slurred speech, dizziness, one sided weakness, altered gait, facial droop, sudden terrible headache or worst headache of life) * Progress Notes - Dinah Ramirez APRN - 09/27/2024 1:20 PM EDT Transitional Care Management Progress Note: Ujje-ed-Ibsg Visit Patient: Michelle Felipe : 1950 PCP: [...] levels >2 -Will set up appointment with [facility] -Continue home metoprolol [...] in the future. Patient is established with [facility] with next appt 10/18/24. Review [...] Health care maintenance -Patient is established with [facility] with next appt 10/18/24. Follow up appointments: [facility] 09/30/24, ENT 10/07/24, ENG 10/07/24, Cardiology 10/07/24, Pulm 10/14/24, [facility] 10/18/24, Nephrology 10/25/24, Endocrinology 10/27/24, [facility] 12/22/24, Cardiology 01/19/25, [facility] 02/02/25, [facility] 03/28/25 Note to patient: The Cures [...] clinical opinion of the practitioner. Dinah Ramirez, DIVISION SUPERINTENDENT 09/27/2024 1:27 PM [1] Past Medical History: [...] - Was ableto get patient in with [facility] ophthalmology right after our clinic appointment (where [...] CARDIAC PACEMAKER PLACEMENT N/A Pacemaker Placement from [employer] CARPAL TUNNEL RELEASE N/A Neuroplasty Decompression Median Nerve At Carpal Tunnel from [employer] CERVICAL BIOPSY W/ LOOP ELECTRODE EXCISION 2010 SECTION, CLASSIC 1976, 1979 SECTION, LOW TRANSVERSE N/A Section from [employer] COLONOSCOPY N/A Complete Colonoscopy from [employer] CORONARY ARTERY BYPASS GRAFT N/A CABG from [employer] EYE SURGERY N/A Eye Surgery from [employer] FRACTURE SURGERY SPINE SURGERY THORACENTESIS TOE SURGERY Left 02/07/2024 hematoma removal of upper skin on L big toe TONSILLECTOMY N/A Tonsillectomy from [employer] [3] Family History Problem Relation Name Age of Onset Conversions - Other Mother cindi stamper alfredito kelin Goiter (Diffuse Nontoxic) Heart disease Mother cindi stamper alfredito kelin Hypertension Mother cindi stamper alfredito kelin Stroke Mother cindi stamper alfredito kelin COPD Mother cindi stamper alfredito kelin Alpha-1 antitrypsin deficiency Mother cindi stamper alfredito kelin Arthritis Father Doron E Jeff Hypercholesterolemia Father Doron E Jeff Obesity Father Doron E Alfredito COPD Father Doron E Alfredito Alcohol abuse Father Doron E Alfredito Diabetes Sibling Cancer Other Doron E Jeff Conversions - Other Other Goiter (Diffuse Nontoxic) Heart disease Other Cindi Marry Stamper Jeff Kelin documented in this encounter Plan of Treatment Upcoming Encounters Date Type Department Care Team (Late st Contact Info) Description 12/06/2024 11:20 AM EDT Office Visit [facility] [address] Internal Medicine [address], [address]rd [place] [address] Alisa Kunz DO [address] [place] [address] 12/23/2024 4:00 PM EDT Office Visit [facility] Medicine Specialties [address], [address] [place] [address] Lavern Shoemaker MD [address] [place] [address] 02/02/2025 8:40 AM EST Office Visit [facility] [address] Internal Medicine [address], 3rd [place] [phone] Alisa Kunz, [address] [place] [address] 02/09/2025 12:20 PM EST Office Visit [facility] Endocrinology [address] [place] [address] Anne-Marie Kolb, DIVISION SUPERINTENDENT [address] [facility] [address] [place] [address] documented as of this encounter Results * (ABNORMAL) Protime-INR (09/27/2024 2:29 PM EDT) Prothrombin Time 19.5(H) 12.0 - 14.3 sec LAB COAGULATION METHOD 09/27/2024 5:42 PM EDT [facility] INR 1.6(H) 0.9 - 1.1 LAB COAGULATION METHOD 09/27/2024 5:42 PM EDT [facility] Blood Venous blood specimen / Unknown Venipuncture / Unknown 09/27/2024 2:29 PM EDT 09/27/2024 2:29 PM EDT Narrative [facility] - 09/27/2024 5:42 PM [...] recurrent NM INR 2.5 to 3.5 us Dinah Ramirez DIVISION SUPERINTENDENT LAB BLOOD ORDERABLES Final Result [facility] [address] [place] [address] documented in this encounter Visit Diagnoses Diagnosis [...] documented as of this encounter Care Teams Child Nutrition Assistant Relationship Specialty Start Date End Date Alisa Kunz DO [address] [place] [phone] PCP - General Internal Medicine 03/13/21 Kodi Bustos DO [address] [phone] Surgeon Cardiothoracic Surgery 11/06/22 Sujit Arriola MD [address] [place] [address] Consulting Physician Pulmonary Disease 11/06/22 Sujit Reyes MD [address] [place] [address] Referring Physician 12/04/22 Patricia Yañez LPN [facility] TCM Nurse 08/25/24 10/17/24 Zee Lazar DO [address] [place], [place] [phone] Resident 09/08/24 documented as of this encounter
--- OUTSIDE RECORDS SUMMARY | 2024-10-07 12:50 | XMS_ITS | Encounter Summary ---
Author Organization Healthcare Address [address] [place] [address] Care Team Providers Care Cake Winder Name Role Phone ZeAlisa willett Torri DO Primary Care Provider [phone] Kodi Bustos DO Unavailable [phone] Sujit Arriola MD Unavailable [phone] Sujit Reyes MD Unavailable [phone] Patricia Yañez LPN Unavailable Unavailab Zee Lr DO Unavailable [phone] Reason for Visit * Reason Comments Throat Problem Mouth feels like it is on fire * Consultation (Routine) - Closed Specialty Diagnoses / Procedures Referred By Contdarwin t Referred To Contact Otolaryngology Diagnoses Oral herpes simplex infection Alex Mg MD [address] [place] [address] Phone: tel: fax: [place] [facility] [address] [place] [address] Phone: tel: fax: Referral ID Status Reason Start Date Expiration Date V isits Requested Visits Authorized [id number] Closed Specialty Services Required 09/15/2024 03/17/2026 1 1 Encounter Details Date Type Department Care Team (Late st Contact Info) Description 10/07/2024 12:50 PM EDT Office Visit [place] [facility] [address] [place] [address] Chris Pepe MD [address] [place] [address] Recurrent aphthous ulcer (Primary Dx); [...] Recorded Patient Health Questionnaire-2 Score 0 09/08/2024 [facility] - Occupational Stress Questionnaire Answer Date Recorded [...] living in a penitentiary (including now)? No 09/17/2024 CAGE ASSESSMENT Answer [...] drink first t anselmo in the morning (EYE-APPEALS BOARD REFEREE) to steady your nerves or to get [...] crush, chew, or split., Disp: , Rfl: Wbpgzbvtpyt-Xvggyaals-Ipvtyx (Trelegy Ellipta) 200-62.5-25 MCG/ACT aerosol powder , [...] Description 12/06/2024 11:20 AM EDT Office Visit [facility] Internal Medicine [address]rd [place] [address] ZeAlisa willett L, DO [address] [place] [address] 12/23/2024 4:00 PM EDT Office Visit [facility] Medicine Specialties [address], [address] [place] [address] Lavern Shoemaker MD [address] [place] [address] 02/02/2025 8:40 AM EST Office Visit [facility] Internal Medicine [address], [address]rd [place] [address] Alisa Kunz, DO [address] [place] [address] 02/09/2025 12:20 PM EST Office Visit [facility] Endocrinology [address] [place] [address] Anne-Marie Kolb L, EDGING MACHINE OPERATOR [address] [facility] [address] [place] [address] documented as of this encounter Visit Diagnoses [...] documented as of this encounter Care Teams Cake Winder Relationship Specialty Start Date End Date Alisa Kunz DO [address] [place] [address] PCP - General Internal Medicine 03/13/21 Kodi Bustos DO [address] [address] Surgeon Cardiothoracic Surgery 11/06/22 Sujit Arriola MD [address] [place] [address] Consulting Physician Pulmonary Disease 11/06/22 Sujit Reyes MD [address] [place] [address] Referring Physician 12/04/22 Patricia Yañez LPN [facility] TCM Nurse 08/25/24 10/17/24 Zee Lazar DO [address] [place], [place] [phone] Resident 09/08/24 documented as of this encounter
--- OUTSIDE RECORDS SUMMARY | 2024-10-12 09:52 | XMS_ITS | Encounter Summary ---
[facility] Organization [facility] Address [address] [place] [address] Care Team Providers Care Geological Aide Name Role Phone Alisa Kunz Primary Care Provider +1- [phone] Reason for Referral * Cardiac (Routine) - Closed Specialty Diagnoses / Procedures Referred By Luis Armando t Referred To Contact Diagnoses Paroxysmal atrial fibrillation Procedures Cardioversion External in Cardiology Department Naveen Velasquez MD [address] [place], [place] [address] [place] [address] Phone: tel: fax: Referral ID Status Reason Start Date Expiration Date Visits Re quested Visits Authorized [id number] Closed 10/12/2024 01/04/2026 1 1 Reason for Visit * Cardiac (Routine) - Closed Specialty Diagnoses / Procedures Referred By Luis Armando mckeon Referred To Contact Diagnoses Paroxysmal atrial fibrillation Procedures Cardioversion External in Cardiology Department Naveen Velasquez MD [facility] [address] [place] [address] Phone: tel: fax: Referral ID Status Reason Start Date Expiration Date Visits Re quested Visits Authorized [id number] Closed 10/12/2024 01/04/2026 1 1 Encounter Details Date Type Department Care Team (Late st Contact Info) Description 10/12/2024 9:52 AM EDT - 10/12/2024 4:46 PM EDT Hospital Encounter [facility] [address] [place] [address] Naveen Velasquez MD [address] [facility] [address] [place] [address] Paroxysmal atrial fibrillation Discharge Disposition: Home or [...] 10:26 AM EDT Cece Prieto RN * [place] Suicide Severity Rating Scale (Screener/Recent Self-Report) Question [...] sent through Care Everywhere. * Transesophageal Echocardiogram (Nigerian) * Moderate Conscious Sedation Adult Care After (Nigerian) * Warfarin Tablets (Nigerian) * Atrial Fibrillation Yioq-il-Becz (Nigerian) documented in this encounter Medications at Time [...] on file. 10/12/24 DATE OF ADMISSION: 10/12/2024 [facility] Alisa Tanner, DO [address] / [facility] [address] Referring Provider: Naveen Velasquez MD CC: AFIB Problem List: Ischemic heart disease: CABG, Dr. Timur Lopez, July 1999 (SHEEHAN to distal LAD,SVG to first diagonal, SVG to second diagonal, SHAR [place] metal stenting of the ostium of the SVG to second diagonal, Rotational atherectomy/PTCA ofRCA and SVG to second diagonal in-stent. PTCRA/stenting of proximal RCA in-stent restenosis and rotational atherectomy/PTCA of SVG to seconddiagonal. Brachy therapy for in-stent restenosis of proximal dominant RCA, 04/16/2001, LVEF (65%). [facility]: Dr. Thakkar for acute [place], 01/10/2007: Normal LV function and wall motion, Patent SVG to second diagonal, Patent SHEEHAN graft to LAD, 50% ostial stenosis of SVG to first diagonal, JANA Taxus stenting of mid RCA stenosis. Mild reversible anteroischemia - Cardiac SPECT (scan date ?), LVEF (77%). [facility], May 2011, [facility], reportedly revealed no disease (data deficit) in setting of diabetic ketoacidosis associated with acute respiratory failure requiring mechanical ventilation x 5 days. Echocardiogram 04/12/16: LVEF 70%, mild MR, AV sclerosis Myocardial perfusion study 02/17/2017: Wnl, EF 70% Echo, 05/18/21, EF 60%, Mild MS [facility] PTCA RCA ISR: Patent Grafts. 04/30 [...] 0.4 mg, 0.4 mg, Intravenous, Once PRN, Naeven Velasquez MD Social History Socioeconomic History Marital [...] be feeling worse. Will attempt cardioversion and latter-day of normal sinus rhythm to see if [...] Description 12/02/2024 3:30 PM EDT Office Visit [facility] C[facility] [address] [place] [address] Sujit Reyes MD [address] [place] [address] 01/19/2025 1:45 PM EST Office Visit [facility] [address] [place] [address] Naveen Velasquez MD [address] [place], [place] [id number] documented as of this encounter Procedures Procedure [...] - 15.3 Seconds 10/12/2024 11:00 AM EDT [facility] INR 1.37(H) 0.89 - 1.12 10/12/2024 11:00 AM EDT [facility] Blood Line / Unknown 10/12/2024 10 :20 AM EDT 10/12/2024 10:40 AM EDT us Naveen Velasquez MD LAB BLOOD ORDERABLES Final R esult [facility]
[address] [place] [address], * (ABNORMAL) CBC (No Diff) (10/12/2024 10:20 AM EDT) WBC 7.80 3.40 - 10.80 10*3/mm3 10/12/2024 10:48 AM EDT [facility] RBC 3.75(L) 3.77 - 5.28 10*6/mm3 10/12/2024 10:48 AM EDT [facility] Hemoglobin 11.2(L) 12.0 - 15.9 g/dL 10/12/2024 10:48 AM EDT [facility] Hematocrit 36.8 34.0 - 46.6 % 10/12/2024 10:48 AM EDT [facility] MCV 98.1(H) 79.0 - 97.0 fL 10/12/2024 10:48 AM EDT [facility] MCH 29.9 26.6 - 33.0 pg 10/12/2024 10:48 AM EDT [facility] MCHC 30.4(L) 31.5 - 35.7 g/dL 10/12/2024 10:48 AM EDT [facility] RDW 16.7(H) 12.3 - 15.4 % 10/12/2024 10:48 AM EDT [facility] RDW-SD 60.3(H) 37.0 - 54.0 fl 10/12/2024 10:48 AM EDT [facility] MPV 9.7 6.0 - 12.0 fL 10/12/2024 10:48 AM EDT [facility] Platelets 289 140 - 450 10*3/mm3 10/12/2024 10:48 AM EDT [facility] Blood Line / Unknown 10/12/2024 10 :20 AM EDT 10/12/2024 10:40 AM EDT us Naveen Velasquez MD LAB BLOOD ORDERABLES Final R esult [facility]
[address] [place] [address], documented in this encounter Visit Diagnoses Diagnosis [...] at 1440 1440 (Given - Provid er: Ccee Prieto RN) flumazenil (ROMAZICON) injection 0.5 mg [...] (Due) documented in this encounter Care Teams Geological Aide Relationship Specialty Start Date End Date Alisa Kunz DO [address] [place] [address] PCP - General Internal Medicine 04/26/21 documented as of this encounter
--- OUTSIDE RECORDS SUMMARY | 2024-10-14 11:00 | XMS_ITS | Encounter Summary ---
Author Organization [facility] Address [address] [place] [address] Care Team Providers Care Helper Animal Laboratory Name Role Phone ZeAlisa willett Torri DO Primary Care Provider [phone] Kodi Bustos DO Unavailable [phone] Sujit Arriola MD Unavailable [phone] Sujit Reyes MD Unavailable [phone] Patricia Yañez LPN Unavailable Unavailab Zee Lr DO Unavailable [phone] Reason for Referral * Consultation (Routine) - Authorized Specialty Diagnoses / Procedures Referred By Contdarwin t Referred To Contact Diagnoses Recurrent pleural effusion on left Chronic hypoxic respiratory failure Obstructive lung disease ([facility]/HCC) Systemic lupus erythematosus (SLE) in adult ([facility]) Cristian Zimmer MD [address] [facility] [address] [place] [address] Phone: tel: fax: Referral ID Status Reason Start Date Expiration Date V isits Requested Visits Authorized [id number] Authorized 10/14/2024 04/15/2026 1 1 Reason for Visit * Reason Comments Follow-up * Consultation (Routine) - Closed Specialty Diagnoses / Procedures Referred By Contac t Referred To Contact Diagnoses Recurrent pleural effusion on left Chronic hypoxic respiratory failure Sen, Parijat, MD [address] [place] [address] Phone: tel: fax: Referral ID Status Reason Start Date Expiration Date Visits Re quested Visits Authorized [id number] Closed 07/08/2024 01/07/2026 1 1 Encounter Details Date Type Department Care Team (Latest Contact Info) Description 10/14/2024 11:00 AM EDT Office Visit [facility] [address] [place] [address] Cristian Zimmer MD [address] [place] [address] Recurrent pleural effusion on left (Primary Dx); Chronic hypoxic respiratory failure; Obstructive lung disease ([facility]); Systemic lupus erythematosus (SLE) in adult ([facility]) Social History Tobacco Use Types [...] Recorded Patient Health Questionnaire-2 Score 0 09/08/2024 [facility] [place] of Occupat ional Health - Occupational Stress [...] drink first t anselmo in the morning (EYE-OPHTHALMOLOGIST) to steady your nerves or to get [...] her whether she had followed up with [facility] regarding the pleural peritoneal shunt. Shetold me [...] Shoemaker had set up this appointment at [facility] and would probablyhave to do it again [...] 01/09/2023 ??? Influenza, seasonal, injectable 12/08/2018 ??? [employer] COVID-19 Vaccine (Purple Cap) 12+ 03/30/2020, 03/30/2020, [...] procedures, referring and communicating with consulting health care team assistant and care coordination. [1] Past Medical History: Diagnosis Date ??? 2019-nCoV acute respiratory disease 05/07/2022 ??? Alcohol use ??? Allergic 1973 ??? Anemia ??? Anxiety ??? Arthritis ??? Asthma ??? Cellulitis 02/13/2024 ??? Cellulitis of right leg 02/12/2024 ??? CHF (congestive heart failure) ([facility]/HCC) ??? Chronic respiratory failure 2019 ??? Clotting disorder (CMS/HCC) ??? Congenital malformation ??? COPD (chronic obstructive pulmonary disease) ([facility]/HCC) 2018 ??? Coronary artery disease ??? CTS [...] or viral conjunctivitis vs. Scleritis. - Needs [facility] eye exam. - Was ableto [...] CARDIAC PACEMAKER PLACEMENT N/A Pacemaker Placement from [employer] ??? CARPAL TUNNEL RELEASE N/A Neuroplasty Decompression Median Nerve At Carpal Tunnel from [employer] ??? CERVICAL BIOPSY W/ LOOP ELECTRODE EXCISION 2010 ??? SECTION, CLASSIC 1976, 1979 ??? SECTION, LOW TRANSVERSE N/A Section from [employer] ??? COLONOSCOPY N/A Complete Colonoscopy from [employer] ??? CORONARY ARTERY BYPASS GRAFT N/A CABG from [employer] ??? EYE SURGERY N/A Eye Surgery from [employer] ??? FRACTURE SURGERY ??? SPINE SURGERY ??? THORACENTESIS ??? TOE SURGERY Left 02/07/2024 hematoma removal of upper skin on L big toe ??? TONSILLECTOMY N/A Tonsillectomy from [employer] [3] Family History Problem Relation Name Age [...] Do not crush, chew, or split. ??? Zpzbrmrzdwa-Ahqnzcreb-Comahb (Tre[employer] Ellipta) 200-62.5-25 MCG/ACT aerosol powder Inhale [...] Description 12/06/2024 11:20 AM EDT Office Visit [facility] Internal Medicine [address] [place] [address] Alisa Kunz, DO [address] [facility] [address] [place] [address] 12/23/2024 4:00 PM EDT Office Visit [facility] Medicine Specialties [address] [place] [address] Lavern Shoemaker MD [address] [place] [address] 02/02/2025 8:40 AM EST Office Visit [facility] Internal Medicine [address], [address] [place] [address] Alisa Kunz, DO [address] [facility] [address] [place] [address] 02/09/2025 12:20 PM EST Office Visit [facility] Endocrinology [address] [place] [address] Anne-Marie Kolb L, MANAGER RESIDENTIAL [address] [facility] [address] [place] [address] Scheduled Referrals Name Type Priority Associated Diagnoses [...] Chronic hypoxic respiratory failure Obstructive lung disease ([facility]/HCC) Chronic airway obstruction, not elsewhere classified Systemic lupus erythematosus (SLE) in adult ([facility]) Recurrent pleural effusion on left [...] documented as of this encounter Care Teams Helper Animal Laboratory Relationship Specialty Start Date End Date Alisa Kunz DO [address] [place] [phone] PCP - General Internal Medicine 03/13/21 Kodi Bustos, DO [address] [address] Surgeon Cardiothoracic Surgery 11/06/22 Sujit Arriola MD [address] [facility] [address] [place] [address] Consulting Physician Pulmonary Disease 11/06/22 Sujit Reyes MD [address] [facility] [address] [place] [address] Referring Physician 12/04/22 Patricia Yañez LPN [facility] TCM Nurse 08/25/24 10/17/24 Zee Lazar DO [address] [place], [place] [phone] Resident 09/08/24 documented as of this encounter
--- OUTSIDE RECORDS SUMMARY | 2024-10-14 12:09 | XMS_ITS | Encounter Summary ---
Author Organization [facility] Address [address] [place] [address] Care Team Providers Care Tire Debeader Name Role Phone Alisa Kunz DO Primary Care Provider [phone] Kodi Bustos DO Unavailable [phone] Sujit Arriola MD Unavailable [phone] Sujit Reyes MD Unavailable [phone] Patricia Yañez LPN Unavailable Unavailab Zee Lr DO Unavailable [phone] Encounter Details Date Type Department Care Team (Latest Contact Info) Description 10/14/2024 12:09 PM EDT - 10/14/2024 11:59 PM EDT Hospital Encounter [place] [facility] [address], [address] [place] [address] Recurrent pleural effusion on left Discharge Disposition: [...] 09/08/2024 [facility] [...] [place] [facility] ([facility] No 09/17/2024 CAGE ASSESSMENT Answer [...] drink first t anselmo in the morning (EYE-COMPENSATION ADJUSTER) to steady your nerves or to get rid of a hangover? 0 08/14/2024 CAGE Questionnaire Score 0 025 Utilities Answer Date Recorded In the past 12 months has th e [email or web address], gas, oil, or water company threatened to [...] tabletIndications:S ystemic lupus erythematosus (SLE) in adult ([facility]) Take 1.5 tablets by mouth daily. 45 tablet 5 09/15/2024 6 insulin glargine (Toujeo SoloStar) 300 UNIT/ML injection pen (1 UNIT DIAL)Indications:Ty pe 1 diabetes mellitus with hyperglycemia ([facility]) Inject 14 Units under the skin every morning. 4.5 mL 3 08/04/2024 6 insulin lispro (HumaLOG KWIKPEN) 100 UNIT/ML injection penIndications:Type 1 diabetes mellitus with hyperglycemia ([facility]) Inject 2-6 units before meals plus 1:60>150. Max tdd 30 units 30 mL 2 08/04/2024 Lancets mis Use twice a day to calibrate cgm [...] tabletIndications:S ystemic lupus erythematosus (SLE) in adult ([facility]) Take 2 tablets by mouth 2 times [...] 1 diabetes mellitus with other specified complication ([facility]),Dyslipide romana Take 1 tablet by mouth daily. 90 tablet 09/06/2024 5 documented as of this encounter Plan of Treatment Upcoming Encounters Date Type Department Care Team (Late st Contact Info) Description 12/06/2024 11:20 AM EDT Office Visit [facility] Internal Medicine [address], [address]rd [place] [address] Alisa Kunz L, DO [address] [place] [address] 12/23/2024 4:00 PM EDT [facility] [address], [address] [place] [address] Lavern Shoemaker MD [address] [place] [address] 02/02/2025 8:40 AM EST Office Visit [facility] Internal Medicine [address], [address]rd [place] [address] Alisa Kunz, DO [address] [place] [address] 02/09/2025 12:20 PM EST Office Visit [facility] Endocrinology [address] [place] [address] Anne-Marie Kolb L, PRODUCE DEPARTMENT SUPERVISOR [address] [facility] [address] [place] [address] documented as of this encounter Procedures Procedure [...] documented as of this encounter Care Teams Tire Debeader Relationship Specialty Start Date End Date Alisa Kunz DO [address] [place] [address] PCP - General Internal Medicine 03/13/21 Kodi Bustos DO [address] [address] Surgeon Cardiothoracic Surgery 11/06/22 Sujit Arriola MD [address] [place] [address] Consulting Physician Pulmonary Disease 11/06/22 Sujit Reyes MD [address] [facility] [address] [place] [address] Referring Physician 12/04/22 Patricia Yañez LPN [facility] TCM Nurse 08/25/24 10/17/24 Zee Lazar DO [address] [place] [address] Resident 09/08/24 documented as of this encounter
--- OUTSIDE RECORDS SUMMARY | 2024-10-21 14:15 | XMS_ITS | Encounter Summary ---
Author Organization [facility] Address [address] [place] [address] Care Team Providers Care Cook Vegetable Name Role Phone Alisa Kunz DO Primary Care Provider [phone] Reason for Referral * Hospital - Outpatient (Routine) - Authorized Specialty Diagnoses / Procedures Referred By Luis Armando mckeon Referred To Contact Sleep Medicine Diagnoses EWELINA (obstructive sleep apnea) Nocturnal hypoxemia Weight loss On supplemental oxygen therapy Procedures Polysomnography 4 or More Parameters Shannen Horta APRN [address] [place] [address] Phone: tel: fax: [facility] [address] [address] Phone: tel: fax: Referral ID Status Reason Start Date Expiration Date V isits Requested Visits Authorized [id number] Authorized 10/21/2024 01/20/2026 1 1 Reason for Visit * Reason Comments Follow-up Sleep Apnea Encounter Details Date Type Department Care Team (Late st Contact Info) Description 10/21/2024 2:15 PM EDT Office Visit [facility] SLEEP MEDICINE [address] [place] [address] Shannen Horta, HORSE STUD WORKER [address] [place] [address] EWELINA (obstructive sleep apnea) (Primary [...] this encounter Progress Notes * Shannen Horta, HORSE STUD WORKER - 10/21/2024 2:15 PM EDT Chief Complaint: Chief Complaint Patient presents with Follow-up Sleep Apnea HPI: Michelle Felipe is a 74 y.o. female here for follow-up of sleep apnea. Patient was last seen 05/15/2023. Patient does use [id number]-[id number] oxygen at 2 L. She has a [...] social history were reviewed and updated in [facility] as appropriate. Review of Systems Constitutional: Positive [...] [facility] CARDI[facility] [address] [facility] [place] [address] [place] [phone] Sujit Reyes MD [address] [facility] [address] [place], [place] [id number] 01/19/2025 1:45 PM EST Office Visit [facility] CARDI[facility] [address] [facility] [address] [place] [address] Naveen Velasquez MD [address] [facility] [address] [place], [place] [id number] Scheduled Orders Name Type Priority Associated Diagnoses [...] oxygen documented in this encounter Care Teams Cook Vegetable Relationship Specialty Start Date End Date Alisa Kunz DO [address] [place], [place] [id number] PCP - General Internal Medicine 04/26/21 documented as of this encounter
--- OUTSIDE RECORDS SUMMARY | 2024-10-27 13:40 | XMS_ITS | Encounter Summary ---
Author Organization [facility] Address [address] [place] [address] Care Team Providers Care Pedigree Researcher Name Role Phone Alisa Kunz DO Primary Care Provider Kodi Bustos DO Unavailable [phone] Sujit Arriola MD Unavailable [phone] Sujit Reyes MD Unavailable [phone] Zee Lazar DO Unavailable [phone] Reason for Referral * Consultation (Routine) - Authorized Specialty Diagnoses / Procedures Referred By Contac t Referred To Contact Diagnoses Type 1 diabetes mellitus with other specified complication (CMS/HCC) Anne-Marie Kolb APRN [address] [facility] [address] [place] [address] Phone: tel: fax: Referral ID Status Reason Start Date Expiration Date V isits Requested Visits Authorized [id number] Authorized 10/27/2024 04/28/2026 1 1 Reason for Visit * Reason Comments Diabetes * Consultation (Routine) - Closed Specialty Diagnoses / Procedures Referred By Contac t Referred To Contact Diagnoses Type 1 diabetes mellitus with hyperglycemia (CMS/HCC) Anne-Marie Kolb APRN [address] [facility] [address] [place] [address] Phone: tel: fax: Referral ID Status Reason Start Date Expiration Date Visits Re quested Visits Authorized [id number] Closed 08/04/2024 02/03/2026 1 1 Encounter Details Date Type Department Care Team (Late st Contact Info) Description 10/27/2024 1:40 PM EDT Office Visit [facility] [address] [place] [address] Anne-Marie Kolb, HEATING AND COOLING SYSTEMS ENGINEER [address] [place] [address] Type 1 diabetes mellitus with other specified complication (CMS/HCC) (Primary Dx); Neuropathy; Hyperlipidemia, unspecified hyperlipidemia type; Dyslipidemia Social History Tobacco Use Types Packs/Day [...] Date Recorded Patient Health Questionnaire-2 Score 0 10/27/2024 [facility] [place] of Occupat ional Health - Occupational Stress [...] drink first t anselmo in the morning (EYE-EDUCATIONAL ADMINISTRATOR) to steady your nerves or to get rid of a hangover? 0 08/14/2024 CAGE Questionnaire Score 0 025 Utilities Answer Date Recorded In the past 12 months has th e [employer], [employer], oil, or water [employer] threatened to shut off services in your [...] Sign Reading Time Taken Comments Blood Pressure 125/70 10/27/2024 2:01 PM EDT Pulse 60 10/27/2024 2:01 PM EDT Temperature - - Respiratory Rate - - Oxygen Saturation - - Inhaled Oxygen Concentration - - Weight - - Height 162.6 cm (5' 4 ) 10/27/2024 2:01 PM EDT Body Mass Index - - documented in this encounter Functional Status * Over the past 2 weeks, how often have you been bothered by any of the following problems? Question Answer Date of Assessment Author Little interest or pleasure in doing things Not at all 10/27/2024 2:09 PM EDT Lia Espinosa Feeling down, depressed, or hopeless Not at all 10/27/2024 2:09 PM EDT Lia Espinosa Patient Health Questionnaire -2 Score 0 10/27/2024 2:09 PM EDT Lia Espinosa documented as of this encounter Miscellaneous Notes * Patient Instructions - Anne-Marie Kolb APRN - 10/27/2024 1:40 PM EDT Lab Results Component Value Date HGBA1C 7.9 (H) 08/14/2024 CHANGES: Adjust Toujeo to 6u twice a day - CONTINUE Lispro 6 units with BK and lunch and 0-2u with supper plus 1:50>150 - call the diabetes education team with any questions or concerns [phone] * Progress Notes - Anne-Marie Kolb, HEATING AND COOLING SYSTEMS ENGINEER - 10/27/2024 1:40 PM EDT Images from the original note were not included. Subjective Michelle Felipe is a 74 y.o. female who presents for a follow up evaluation of Diabetes Mellitus Type 1. Patient was diagnosed in 1960. Current symptoms/problems include hyperglycemia. Past medical history includes obstructive lung disease, HFpEF, CVA, A fib on Eliquis, complete heart block s/p permanent pacemaker, CAD s/p CABG Diabetes - Last OV 08/04/24. Since then she was hospitalized 09/09/24-09/14/24 again with HFpEF, lupus flare,hypertensive emergency and pleural effusion 08/14/24 A1c 7.9% from 8.4% -> 7.9% -> 8.1%-> 7.9% History of DKA: Denies. Current treatment includes intensive insulin injection program Toujeo 6 units every morning and 4u every evening Lispro 6 units with BK and lunch and 0-2u with supper plus 1:50>150 Estimated TDD: 15-20 units - has been seen for pump education, ended up not wanting to persue Compliance at present is estimated to be good. Known diabetic complications: peripheral neuropathy and cerebrovascular disease - neuropathy more bothersome than previous Cardiovascular risk factors: advanced age (older than [...] day via CGM CGM: Dexcom G7 Dates: 10/14/24-10/27/24 Data:average glucose 220, GMI 8.69%, 30% in target range, 0% low Interpretation:generalized hyperglycemia, COV 29.7. no hypoglycemia -Hypoawareness intact <70. Denies LOC associated with [...] Pulmonary: Effort: Pulmonary effort is normal. Comments: Wearing supplemental O2 Abdominal: General: Abdomen is flat. Musculoskeletal: Cervical back: Normal range of motion and neck supple. Feet: Comments: Using w/c Skin: General: Skin is warm and dry. Neurological: General: No focal deficit present. Mental Status: She is alert and oriented to person, place, and time. Psychiatric: Mood and Affect: Mood normal. Behavior: Behavior normal. Thought Content: Thought content normal. Judgment: Judgment normal. Lab Review Glucose, Plasma (mg/dL) Date Value 09/27/2024 191 (H) 09/21/2024 209 (H) 09/15/2024 206 (H) 09/13/2024 145 (H) POCT Hemoglobin A1C Date Value 04/26/2024 7.9 % 01/26/2024 8.0 % 10/22/2023 8.0 % 02/20/2021 8.1 % (A) 09/06/2020 8.5 % (A) 11/25/2019 7.7 Hemoglobin A1c (%) Date Value 08/14/2024 7.9 (H) 05/24/2024 8.4 (H) CO2, Plasma (mmol/L) Date Value 09/27/2024 31 (H) 09/15/2024 29 09/13/2024 21 (L) BUN, Plasma (mg/dL) Date Value 09/27/2024 23 09/21/2024 19.8 09/15/2024 16 09/13/2024 15 Creatinine, Plasma (mg/dL) Date Value 09/27/2024 1.00 09/21/2024 1.05 (H) 09/15/2024 0.89 09/13/2024 0.82 Assessment/Plan # Diabetes Mellitus Type 1, is uncontrolled. 05/24/24 A1c was 8.4% - extensive review and discussion of CGM download completed with the patient Adjust Toujeo to 6u twice a day Continue Lispro 6 units with BK and lunch and 0-2u with supper plus 1:50>150d plus 1:50>150 correction (if experiences hypoglycemia, start [...] daily foot checks Hyperlipidemia - Stable - Continue on statin and zetia The [...] and/or coordination of care. Electronically signed by: YAMILET Glass [facility] [address] [place] [address]. [address] [place]. [address] PHONE [phone] FAX: [phone] documented in this encounter Plan of Treatment Upcoming Encounters Date Type Department Care Team (Late st Contact Info) Description 12/06/2024 11:20 AM EDT Office Visit [facility] Internal Medicine [address] [place] [address] Alisa Kunz, DO [address] [place] [address] 12/23/2024 4:00 PM EDT Office Visit [facility] Medicine Specialties [address] [place] [address] Lavern Shoemaker MD [address] [place] [id number] 02/02/2025 8:40 AM EST Office Visit [facility] Internal Medicine [address] [place] [address] Alisa Kunz, DO [address] [facility] [address] [place] [address] 02/09/2025 12:20 PM EST Office Visit [facility] Endocrinology [address] [place] [address] Anne-Marie Kolb APRN [address] [place] [address] Scheduled Referrals Name Type Priority Associated Diagnoses Orde r Schedule Follow Up [facility] Outpatient Referral Routine Type 1 diabetes mellitus with other specified complication (CMS/HCC) Expected: 01/27/2025, Expires: 04/30/2026 documented as of this encounter Visit Diagnoses Diagnosis Type 1 diabetes mellitus with other specified complication (CMS/HCC)- Primary Neuropathy Mononeuritis of unspecified site Hyperlipidemia, unspecified hyperlipidemia type Dyslipidemia Other and unspecified hyperlipidemia documented in this encounter Additional Health Concerns Assessment Noted Time PHQ-9 Depression Total Score: 0 09/09/19 25 11:19 AM EDT A fall risk assessment has been complete d for the patient 10/27/2024 2:10 PM EDT A Body Mass Index follow-up plan has been documented for the patient 10/27/2024 2:41 PM EDT documented as of this encounter Care Teams Pedigree Researcher Relationship Specialty Start Date End Date Alisa Kunz DO [address] [place] [address] PCP - General Internal Medicine 03/13/21 Kodi Bustos DO [address] [place] [phone] Surgeon Cardiothoracic Surgery 11/06/22 Sujti Arriola MD [address] [place] [address] Consulting Physician Pulmonary Disease 11/06/22 Sujit Reyes MD [address] [place] [address] Referring Physician 12/04/22 Zee Lazar DO [address] [place] [address] [id number] Resident 09/08/24 documented as of this encounter
--- OUTSIDE RECORDS SUMMARY | 2024-11-02 13:03 | XMS_ITS | Encounter Summary ---
Author Organization [facility] Address [address] [place] [address] Care Team Providers Care Yarn Winder Name Role Phone Alisa Kunz DO Primary Care Provider Kodi Bustos DO Unavailable [phone] Sujit Arriola MD Unavailable [phone] Sujit Reyes MD Unavailable [phone] Patricia Yañez LPN Unavailable Unavailab Zee Lr DO Unavailable [phone] Encounter Details Date Type Department Care Team (Late st Contact Info) Description 09/16/2024 Telephone [facility] Internal Medicine [address], 3rd [place] [address] Alisa Kunz DO [address] [place] [address] Social History Tobacco Use Types [...] time in the past 12 m [facility], were you homeless or living in [...] time in the past 12 m [facility], were you homeless or living in [...] drink first t anselmo in the morning (EYE-AIRPORT ATTENDANT) to steady your nerves or to get rid of a hangover? 0 08/14/2024 CAGE Questionnaire Score 0 025 Utilities Answer Date Recorded In the past 12 months has th [employer], gas, oil, or water [employer] threatened to shut off services in your [...] Description 12/06/2024 11:20 AM EDT Office Visit [facility] Internal Medicine [address], 3rd [place] [address] Alisa Kunz, [address] [place] [address] 12/23/2024 4:00 PM EDT Office Visit [facility] Medicine Specialties [address], 2nd [place] [address] Lavern Shoemaker MD [address] [place], [place] [id number] 02/02/2025 8:40 AM EST Office Visit [facility] Internal Medicine [address], 3rd [place] [address] Alisa uKnz, DO [address] [place] [address] 02/09/2025 12:20 PM EST Office Visit [facility] Endocrinology [address] [place] [address] Anne-Marie Kolb L, GLASS MELT OPERATOR 2[address] [facility] 125 [place] [address] documented as of this encounter Visit Diagnoses [...] documented as of this encounter Care Teams Yarn Winder Relationship Specialty Start Date End Date Alisa Kunz DO [address] [place] [address] PCP - General Internal Medicine 03/13/21 Kodi Bustos DO [address] [address] Surgeon Cardiothoracic Surgery 11/06/22 Sujit Arriola MD [address] [place] [address] Consulting Physician Pulmonary Disease 11/06/22 Sujit Reyes MD [address] [place] [address] Referring Physician 12/04/22 Patricia Yañez LPN [facility] TCM Nurse 08/25/24 10/17/24 Zee Lazar DO [address] [place] [address] Resident 09/08/24 documented as of this encounter
--- OUTSIDE RECORDS SUMMARY | 2024-11-02 13:03 | XMS_ITS | Encounter Summary ---
Author Organization Healthcare Address [address] [place] [address] Care Team Providers Care Nuclear Equipment Design Engineer Name Role Phone ZeNitin willettgricel Wild DO Primary Care Provider [phone] Kodi Bustos DO Unavailable [phone] Sujit Arriola MD Unavailable [phone] Sujit Reyes MD Unavailable [phone] Patricia Yañez LPN Unavailable Unavailab Zee Lr DO Unavailable [phone] Encounter Details Date Type Department Care Team (Late st Contact Info) Description 09/28/2024 [facility]phone [facility] [address] [place] [address] Anne-Marie Kolb L, PROCESS MAINTENANCE TECHNICIAN 219 [facility] 125 [place] [address] Social History Tobacco Use Types [...] Recorded Patient Health Questionnaire-2 Score 0 09/08/2024 [facility] of Occupat ional Health - Occupational Stress [...] drink first t anselmo in the morning (EYE-MEDIA CONSULTANT OUTSIDE SALES) to steady your nerves or to get rid of a hangover? 0 08/14/2024 CAGE Questionnaire Score 0 025 Utilities Answer Date Recorded In the past 12 months has th e [employer], gas, oil, or water [email or web address] threatened to shut off services in your [...] Description 12/06/2024 11:20 AM EDT Office Visit [facility] Internal Medicine [address], 3rd [place] [address] Alisa Kunz, DO [address] [place] [address] 12/23/2024 4:00 PM EDT Office Visit [facility] Medicine Specialties [address], 2nd [place] [address] Lavern Shoemaker MD 800 [place], [place] [id number] 02/02/2025 8:40 AM EST Office Visit [facility] Internal Medicine [address], 3rd [place] [address] Alisa Kunz, DO [address] [place] [address] 02/09/2025 12:20 PM EST Office Visit Janette Suazo [facility] Endocrinology [address] [place] [address] Anne-Marie Kolb, PROCESS MAINTENANCE TECHNICIAN [address] [facility] [address] [place] [address] documented as of this encounter Visit Diagnoses [...] as of this encounter Care Teams Nuclear Equipment Design Engineer Relationship Specialty Start Date End Date Alisa Kunz DO [address] [place] [address] PCP - General Internal Medicine 03/13/21 Kodi Bustos DO [address] [address] Surgeon Cardiothoracic Surgery 11/06/22 Sujit Arriola MD [address] [place] [address] Consulting Physician Pulmonary Disease 11/06/22 Sujit Reyes MD [address] [facility] [address] [place] [address] Referring Physician 12/04/22 Patricia Yañez LPN [facility] TCM Nurse 08/25/24 10/17/24 Zee Lazar DO [address] [place] [id number] Resident 09/08/24 documented as of this encounter
--- OUTSIDE RECORDS SUMMARY | 2024-11-02 13:03 | XMS_ITS | Encounter Summary ---
Author Organization [facility] Address [address] [place] [address] Care Team Providers Care Curatorial Specialist Name Role Phone ZeAlisa willett Torri DO Primary Care Provider Kdoi Bustos DO Unavailable [phone] Sujit Arriola MD Unavailable [phone] Sujit Reyes MD Unavailable [phone] Patricia Yañez LPN Unavailable Unavailab Zee Lr DO Unavailable [phone] Encounter Details Date Type Department Care Team (Late st Contact Info) Description 09/28/2024 Results Follow-Up [facility] Discharge [facility] [address] [place] [address] Ashley, June R, SERVICE AIDE [address] [place] [address] Social History Tobacco Use Types [...] often do you attend chur ch or mormon services? 1 to 4 times [...] drink first t anselmo in the morning (EYE-EXTENSION COURSE COUNSELOR) to steady your nerves or to get rid of a hangover? 0 08/14/2024 CAGE Questionnaire Score 0 025 Utilities Answer Date Recorded In the past 12 months has th [employer], gas, oil, or water [employer] threatened to shut off services in your [...] Description 12/06/2024 11:20 AM EDT Office Visit [facility] Internal Medicine [address], 3rd [place] [address] Alisa Kunz, DO [address] [place] [address] 12/23/2024 4:00 PM EDT Office Visit [facility] Medicine Specialties [address], 2nd [place] [address] Lavern Shoemaker MD 800 [place] [address] 02/02/2025 8:40 AM EST Office Visit [facility] Internal Medicine [address], 3rd [place] [address] Alisa Kunz, DO [address] [place] [address] 02/09/2025 12:20 PM EST Office Visit [facility] Endocrinology [address] [place] [address] Anne-Marie Kolb APRN [address] [place] [address] documented as of this encounter Visit Diagnoses [...] documented as of this encounter Care Teams Curatorial Specialist Relationship Specialty Start Date End Date Alisa Kunz DO [address] [place] [address] PCP - General Internal Medicine 03/13/21 Kodi Bustos DO [address] [address] Surgeon Cardiothoracic Surgery 11/06/22 Sujit Arriola MD [address] [place] [address] Consulting Physician Pulmonary Disease 11/06/22 Sujit Reyes MD [address] [place] [address] Referring Physician 12/04/22 Patricia Yañez LPN [facility] TCM Nurse 08/25/24 10/17/24 Zee Lazar DO [address] [place], [place] [id number] Resident 09/08/24 documented as of this encounter
--- OUTSIDE RECORDS SUMMARY | 2024-11-02 13:03 | XMS_ITS | Encounter Summary ---
Author Organization [facility] Address [address] [place] [address] Care Team Providers Care Compliance Reviewer Name Role Phone Alisa Kunz DO Primary Care Provider [phone] Kodi Bustos DO Unavailable [phone] Sujit Arriola MD Unavailable [phone] Sujit Reyes MD Unavailable [phone] Patricia Yañez LPN Unavailable Unavailab Zee Lr DO Unavailable [phone] Encounter Details Date Type Department Care Team (Late st Contact Info) Description 09/16/2024 Telephone [facility] Medicine Specialties [address], 2nd [place] [address] [place] [address] Social History Tobacco Use Types Packs/Day Years [...] week 08/30/2022 How often do you attend [facility] or latter-day services? 1 to 4 times [...] Patient Health Questionnaire-2 Score 0 09/08/2024 [facility] of Occupat ional Health - Occupational Stress [...] the past 12 m [facility], were you homeless or living [...] the past 12 m [facility], were you homeless or living [...] drink first t anselmo in the morning (EYE-GAS FITTER APPRENTICE) to steady your nerves or to get rid of a hangover? 0 08/14/2024 CAGE Questionnaire Score 0 025 Utilities Answer Date Recorded In the past 12 months has th e [employer], gas, oil, or water company threatened to [...] she calls back, please send her to [facility]. * Telephone Encounter - Shabana Hernández [...] there was previous discussion about going to [place], she's wondering if that would be the next step or if she would need to see a ore storage drier with us first She would like a call back from the nursing team as quickly as possible CB: [phone] documented in this encounter Plan of Treatment Upcoming Encounters Date Type Department Care Team (Late st Contact Info) Description 12/06/2024 11:20 AM EDT Office Visit [facility] Internal Medicine [address], 3rd [place] [address] Alisa Kunz, DO [address] [place] [address] 12/23/2024 4:00 PM EDT Office Visit [facility] Medicine Specialties [address], 2nd [place] [address] Lavern Shoemaker MD [address] [place], [place] [id number] 02/02/2025 8:40 AM EST Office Visit [facility] Internal Medicine [address], 3rd [place] [address] Alisa Kunz, DO [address] [place] [address] 02/09/2025 12:20 PM EST Office Visit [facility] Endocrinology [address] [place] [address] Anne-Marie Kolb L, RETORT ENGINEER [address] [place] [address] documented as of this encounter [...] documented as of this encounter Care Teams Compliance Reviewer Relationship Specialty Start Date End Date Alisa Kunz DO [address] [place] [address] PCP - General Internal Medicine 03/13/21 Kodi Bustos DO [address] [address] Surgeon Cardiothoracic Surgery 11/06/22 Sujit Arriola MD [address] [place] [address] Consulting Physician Pulmonary Disease 11/06/22 Sujit Reyes MD [address] [place] [address] Referring Physician 12/04/22 Patricia Yañez LPN [facility] TCM Nurse 08/25/24 10/17/24 Zee Lazar DO [address] [place], [place] [phone] Resident 09/08/24 documented as of this encounter
--- OUTSIDE RECORDS SUMMARY | 2024-11-02 13:03 | XMS_ITS | Encounter Summary ---
Author Organization [facility] Address [address] [place] [address] Care Team Providers Care Rum Processing Operator Name Role Phone Alisa Kunz DO Primary Care Provider [phone] Kodi Bustos DO Unavailable [phone] Sujit Arriola MD Unavailable [phone] Sujit Reyes MD Unavailable [phone] Patricia Yañez LPN Unavailable Unavailab Zee Lr DO Unavailable [phone] Reason for Visit * Reason Comments TCM Call Encounter Details Date Type Department Care Team (Late st Contact Info) Description 09/17/2024 Patient Outreach [facility] [address] [facility], [address] [place] [address] Patricia Yañez LPN [facility] TCM Call Social [...] Health Questionnaire-2 Score 0 09/08/2024 [facility] of Occupat ional Health [...] drink first t anselmo in the morning (EYE-SATELLITE INSTALLATION TECHNICIAN) to steady your nerves or to [...] Date: 09/09/2024 Discharge Date: 09/15/2024 Hospital Service: [facility] Discharge Diagnosis: Acute on chronic congestive [...] have HH coming to see her [facility]. Patient denies N/V/D, fever, SOA, chest pain, [...] Description 12/06/2024 11:20 AM EDT Office Visit [facility] Internal Medicine [address] 3rd [place] [address] Alisa Kunz DO [address] [place] [address] 12/23/2024 4:00 PM EDT Office Visit [facility] Medicine Specialties [address], 2nd [place] [address] Lavern Shoemaker MD 800 [place] [address] 02/02/2025 8:40 AM EST Office Visit [facility] Internal Medicine [address], 3rd [place] [address] Alisa Kunz DO [address] [place] [address] 02/09/2025 12:20 PM EST Office Visit [facility] Endocrinology [address] [place] [address] Anne-Marie Kolb, GROUP HOME COUNSELOR 2[address] [facility] [address] [place] [address] documented as of this encounter [...] documented as of this encounter Care Teams Rum Processing Operator Relationship Specialty Start Date End Date Alisa Kunz DO [address] [place] [address] PCP - General Internal Medicine 03/13/21 Kodi Bustos DO [address] [address] Surgeon Cardiothoracic Surgery 11/06/22 Sujit Arriola MD [address] [place] [address] Consulting Physician Pulmonary Disease 11/06/22 Sujit Reyes MD [address] [facility] [address] [place] [address] Referring Physician 12/04/22 Patricia Yañez LPN [facility] TCM Nurse 08/25/24 10/17/24 Zee Lazra DO [address] [place], [place] [id number] Resident 09/08/24 documented as of this encounter
--- OUTSIDE RECORDS SUMMARY | 2024-11-02 13:03 | XMS_ITS | Encounter Summary ---
Author Organization [facility] Address [address] [place] [address] Care Team Providers Care Perforating Machine Operator Name Role Phone Alisa Kunz DO Primary Care Provider Kodi Bustos DO Unavailable [phone] Sujit Arriola MD Unavailable [phone] Sujit Reyes MD Unavailable [phone] Patricia Yañez LPN Unavailable Unavailab Zee Lr DO Unavailable [phone] Reason for Visit * Reason Onset Date Comments Med Refill 09/16/2024 Encounter Details Date Type Department Care Team (Late st Contact Info) Description 09/16/2024 Telephone [facility] Endocrinology [address] [place] [address] Anne-Marie Kolb L, CONTACT CENTER AGENT 219 [facility] [address] [place] [address] Med Refill Social History Tobacco [...] any clubs o r organizations such as islam groups, unions, fraternal or athletic groups, or [...] Recorded Patient Health Questionnaire-2 Score 0 09/08/2024 [facility] of Occupat ional Health [...] drink first t anselmo in the morning (EYE-LINE INSTALLER) to steady your nerves or to get rid of a hangover? 0 08/14/2024 CAGE Questionnaire Score 0 025 Utilities Answer Date Recorded In the past 12 months has th [employer], gas, oil, or water [employer] threatened to shut off services in [...] Visit [facility] Internal Medicine [address], 3rd [place] [address] Alisa Kunz, DO [address] [place] [address] 12/23/2024 4:00 PM EDT Office Visit [facility] Medicine Specialties [address], [address]nd [place] [address] Lavern Shoemaker MD [address] [place] [address] 02/02/2025 8:40 AM EST Office Visit [facility] Internal Medicine [address], 3rd [place] [address] Alisa Kunz, DO [address] [place] [address] 02/09/2025 12:20 PM EST Office Visit [facility] Endocrinology [address] [place] [address] Anne-Marie Kolb L, CONTACT CENTER AGENT [address] [facility] 125 [place] [address] documented as of this encounter [...] documented as of this encounter Care Teams Perforating Machine Operator Relationship Specialty Start Date End Date Alisa Kunz DO [address] [place] [address] PCP - General Internal Medicine 03/13/21 Kodi Bustos, DO [address] [address] Surgeon Cardiothoracic Surgery 11/06/22 Sujit Arriola MD [address] [place] [address] Consulting Physician Pulmonary Disease 11/06/22 Sujit Reyes MD [address] [place] [address] Referring Physician 12/04/22 Patricia Yañez LPN [facility] TCM Nurse 08/25/24 10/17/24 Zee Lazar DO 800 [place] [address] Resident 09/08/24 documented as of this encounter
--- OUTSIDE RECORDS SUMMARY | 2024-11-02 13:03 | XMS_ITS | Encounter Summary ---
Author Organization [facility] Address [address] [place] [address] Care Team Providers Care Grinder Set Up Operator Surface Name Role Phone Alisa Kunz DO Primary Care Provider Kodi Bsutos DO Unavailable [phone] Sujit Arriola MD Unavailable [phone] Sujit Reyes MD Unavailable [phone] Patricia Yañez LPN Unavailable Unavailab Zee Lr DO Unavailable [phone] Encounter Details Date Type Department Care Team (Late st Contact Info) Description 09/17/2024 Orders Only [facility] Internal Medicine [address]rd [place] [address] Alisa Kunz DO [address] [place] [address] Social History Tobacco Use Types [...] Questionnaire-2 Score 0 09/08/2024 [facility] of Occupat ional Health - [...] drink first t anselmo in the morning (EYE-COATING INSPECTOR) to steady your nerves or to get rid of a hangover? 0 08/14/2024 CAGE Questionnaire Score 0 025 Utilities Answer Date Recorded In the past 12 months has th [employer], gas, oil, or water company threatened to [...] Description 12/06/2024 11:20 AM EDT Office Visit [facility] Internal Medicine [address] 3rd [place] [address] Alisa Kunz, [address] [place] [address] 12/23/2024 4:00 PM EDT Office Visit [facility] Medicine Specialties [address]nd [place] [address] Lavern Shoemaker MD [address] [place] [address] 02/02/2025 8:40 AM EST Office Visit [facility] Internal Medicine [address], 3rd [place] [address] Alisa Kunz DO [address] [place] [address] 02/09/2025 12:20 PM EST Office Visit [facility] Endocrinology [address] [place] [address] Anne-Marie Kolb L, MOTOR SCOOTER REPAIRER [address] [facility] [address] [place] [address] documented as of this encounter [...] documented as of this encounter Care Teams Grinder Set Up Operator Surface Relationship Specialty Start Date End Date Alisa Kunz DO [address] [place] [address] PCP - General Internal Medicine 03/13/21 Kodi Bustos DO [address] [address] Surgeon Cardiothoracic Surgery 11/06/22 Sujit Arriola MD [address] [place] [address] Consulting Physician Pulmonary Disease 11/06/22 Sujit Reyes MD [address] [place] [address] Referring Physician 12/04/22 Patricia Yañez LPN [facility] TCM Nurse 08/25/24 10/17/24 Zee Lazar DO [address] [place] [address] Resident 09/08/24 documented as of this encounter
--- OUTSIDE RECORDS SUMMARY | 2024-11-02 13:03 | XMS_ITS | Encounter Summary ---
Author Organization [facility] Address [address] [place] [address] Care Team Providers Care Tobacco Stripper Hand Name Role Phone Alisa Kunz DO Primary Care Provider Kodi Bustos DO Unavailable [phone] Sujit Arriola MD Unavailable [phone] Sujit Reyes MD Unavailable [phone] Patricia Yañez LPN Unavailable Unavailab Zee Lr DO Unavailable [phone] Reason for Visit * Reason Onset Date Comments HCN Clinical Concern/Question 09/16/2024 Lo w heartrate Encounter Details Date Type Department Care Team (Late st Contact Info) Description 09/16/[address] [facility] Internal Medicine [address], 3rd [place] [address] Alisa Kunz DO [address] [place] [address] HCN Clinical Concern/Question (Low heartrate) [...] 09/08/2024 [facility] of Occupat ional [facility] - Occupational Stress Questionnaire Answer Date [...] first t anselmo in the morning (EYE-PRINT PROJECT MANAGER) to steady your nerves or to get rid of a hangover? 0 08/14/2024 CAGE Questionnaire Score 0 025 Utilities Answer Date Recorded In the past 12 months has th [employer], gas, oil, or water [employer] threatened to shut off services in your [...] and optimal time of day to reach caller:[phone] Note: Please do not reply to this message. Follow-up communication and further actions as a result of this message need to be communicated with the patient directly, if the patient is not active onMyChart. If the patient is active on MyChart, they will receive notification of the communication/outcome via Slinghart. documented in this encounter Plan of Treatment Upcoming Encounters Date Type Department Care Team (Late st Contact Info) Description 12/06/2024 11:20 AM EDT Office Visit [facility] Internal Medicine [address], 3rd [place] [address] Alisa Kunz DO [address] [address] 12/23/2024 4:00 PM EDT Office Visit [facility] Medicine Specialties [address], [address]nd [place] [address] Lavern Shoemaker MD [address] [place] [address] 02/02/2025 8:40 AM EST Office Visit [facility] Internal Medicine [address], 3rd [place] [address] Alisa Kunz DO [address] [address] 02/09/2025 12:20 PM EST [facility] [address] [place] [address] Anne-Marie Kolb, GEOLOGICAL MANAGER [address] [place] [address] documented as of this encounter [...] documented as of this encounter Care Teams Tobacco Stripper Hand Relationship Specialty Start Date End Date Alisa Kunz DO [address] [place] [address] PCP - General Internal Medicine 03/13/21 Kodi Bustos DO [address] [address] Surgeon Cardiothoracic Surgery 11/06/22 Sujit Arriola MD [address] [place] [address] Consulting Physician Pulmonary Disease 11/06/22 Sujit Reyes MD [address] [place] [address] Referring Physician 12/04/22 Patricia Yañez LPN [facility] TCM Nurse 08/25/24 10/17/24 Zee Lazar DO 800 [place] [address] Resident 09/08/24 documented as of this encounter
--- OUTSIDE RECORDS SUMMARY | 2024-11-02 13:03 | XMS_ITS | Encounter Summary ---
Author Organization Healthcare Address [address] [place] [address] Care Team Providers Care Hospitality Coordinator Name Role Phone ZeNitin willettgricel Wild DO Primary Care Provider Kodi Bustos DO Unavailable [phone] Sujit Arriola MD Unavailable [phone] Sujit Reyes MD Unavailable [phone] Patricia Yañez VENDOR MANAGEMENT ASSOCIATE Unavailable Unavailab Zee Lr DO Unavailable [phone] Encounter Details Date Type Department Care Team (Late st Contact Info) Description 09/20/2024 Telephone [facility] Endocrinology [address] [place] [address] Anne-Marie Kolb L, THEATRE ARTS PROFESSOR [address] [facility] [address] [place] [address] Social History Tobacco Use Types [...] drink first t anselmo in the morning (EYE-CERAMICS INSTRUCTOR) to steady your nerves or to get rid of a hangover? 0 08/14/2024 CAGE Questionnaire Score 0 025 Utilities Answer Date Recorded In the past 12 months has th [employer], gas, oil, or water [employer] threatened to shut off services in your [...] Description 12/06/2024 11:20 AM EDT Office Visit [facility] Internal Medicine [address] 3rd [place] [address] Alisa Kunz, DO [address] [place] [address] 12/23/2024 4:00 PM EDT Office Visit [facility] Medicine Specialties [address]nd [place] [address] Lavern Shoemaker MD 800 [place], [place] [id number] 02/02/2025 8:40 AM EST Office Visit [facility] Internal Medicine [address], 3rd [place] [address] Alisa Kunz, DO [address] [place] [address] 02/09/2025 12:20 PM EST Office Visit [facility] Endocrinology [address] [place] [address] Anne-Marie Kolb, THEATRE ARTS PROFESSOR 2[address] [facility] 125 [place] [address] documented as of this encounter Visit Diagnoses [...] documented as of this encounter Care Teams Hospitality Coordinator Relationship Specialty Start Date End Date Alisa Kunz DO [address] [place] [address] PCP - General Internal Medicine 03/13/21 Kodi Bustos DO [address] [address] Surgeon Cardiothoracic Surgery 11/06/22 Sujit Arriola MD [address] [place] [address] Consulting Physician Pulmonary Disease 11/06/22 Sujit Reyes MD [address] [place] [address] Referring Physician 12/04/22 Patricia Yañez LPN [facility] TCM Nurse 08/25/24 10/17/24 Zee Lazar DO [address] [place], [place] [phone] Resident 09/08/24 documented as of this encounter
--- OUTSIDE RECORDS SUMMARY | 2024-11-02 13:03 | XMS_ITS | Encounter Summary ---
Author Organization Healthcare Address [address] [place] [address] Care Team Providers Care Ivory Carver Name Role Phone Alisa Kunz DO Primary Care Provider [phone] Kodi Bustos DO Unavailable [phone] Sujit Arriola MD Unavailable [phone] Sujit Reyes MD Unavailable [phone] Patricia Yañez LPN Unavailable Unavailab Zee Lr DO Unavailable [phone] Encounter Details Date Type Department Care Team [...] How often do you attend chur or jainism services? 1 to 4 times [...] 09/08/2024 [facility] of Occupat ional [facility] - Occupational Stress Questionnaire Answer Date Recorded [...] any time in the past 12 m [facility], were you homeless or living in [...] any time in the past 12 m [facility], were you homeless or living in [...] drink first t anselmo in the morning (EYE-MICROSOFT DYNAMICS CONSULTANT) to steady your nerves or to get rid of a hangover? 0 08/14/2024 CAGE Questionnaire Score 0 025 Utilities Answer Date Recorded In the past 12 months has th e [employer], gas, oil, or water [employer] threatened to shut off services in [...] Description 12/06/2024 11:20 AM EDT Office Visit [facility] Internal Medicine [address], [address]rd [place] [address] Alisa Kunz, DO [address] [place] [address] 12/23/2024 4:00 PM EDT Office Visit [facility] Medicine Specialties [address], [address]nd [place] [address] Lavern Shoemaker MD [address] [place] [id number] 02/02/2025 8:40 AM EST Office Visit [facility] Internal Medicine [address], [address]rd [place] [address] Alisa Kunz DO [address] [place] [address] 02/09/2025 12:20 PM EST Office Visit [facility] Endocrinology [address] [place] [address] Anne-Marie Kolb L, BOOM STICK WORKER 2[address] [facility] 125 [place] [address] documented as of this encounter [...] documented as of this encounter Care Teams Ivory Carver Relationship Specialty Start Date End Date Alisa Kunz DO [address] [place] [address] PCP - General Internal Medicine 03/13/21 Kodi Bustos DO [address] [place] [address] Surgeon Cardiothoracic Surgery 11/06/22 Sujit Arriola MD [address] [place] [address] Consulting Physician Pulmonary Disease 11/06/22 Sujit Reyes MD [address] [place] [address] Referring Physician 12/04/22 Patricia Yañez LPN [facility] TCM Nurse 08/25/24 10/17/24 Zee Lazar DO [address] [place] [address] Resident 09/08/24 documented as of this encounter
--- OUTSIDE RECORDS SUMMARY | 2024-11-02 13:03 | XMS_ITS | Encounter Summary ---
Author Organization [facility] Address [address] [place] [address] Care Team Providers Care Mechanic Insulator Name Role Phone Alisa Kunz DO Primary Care Provider [phone] Kodi Bustos DO Unavailable [phone] Sujit Arriola MD Unavailable [phone] Sujit Reyes MD Unavailable [phone] Patricia Yañez LPN Unavailable Unavailab Zee Lr DO Unavailable [phone] Reason for Visit * Reason Comments Follow-up Encounter Details Date Type Department Care Team (Late st Contact Info) Description 09/22/2024 Patient Outreach [facility] [address] [facility] [address] [place] [address] Patricia Yañez LPN [facility] Follow-up Social History [...] Recorded Patient Health Questionnaire-2 Score 0 09/08/2024 [facility] of Occupat ional Health - Occupational [...] drink first t anselmo in the morning (EYE-SERVICES TECH) to steady your nerves or to [...] have a cardioversion scheduled for 09/24/2024 at [facility]. Patient states that she has not [...] [facility] Internal Medicine [address], 3rd [place] [address] Alisa Kunz, DO [address] [place] [address] 12/23/2024 4:00 PM EDT Office Visit [facility] Medicine Specialties [address], [address]nd [place] [address] Lavern Shoemaker MD [address] [place] [address] 02/02/2025 8:40 AM EST Office Visit [facility] Internal Medicine [address], 3rd [place] [address] Alisa Kunz, DO [address] [address] 02/09/2025 12:20 PM EST Office Visit [facility] Endocrinology [address] [place] [address] Anne-Marie Kolb, INSTALLMENT ACCOUNT CHECKER 2[address] [facility] 125 [place] [address] documented as of this encounter Visit Diagnoses [...] as of this encounter Care Teams Mechanic Insulator Relationship Specialty Start Date End Date Alisa Kunz DO [address] [place] [address] PCP - General Internal Medicine 03/13/21 Kodi Bustos, DO [address] [address] Surgeon Cardiothoracic Surgery 11/06/22 Sujit Arriola MD [address] [place] [address] Consulting Physician Pulmonary Disease 11/06/22 Sujit Reyes MD [address] [place] [address] Referring Physician 12/04/22 Patricia Yañez LPN AMB-GS [facility] TCM Nurse 08/25/24 10/17/24 Zee Lazar DO 800 [place], [place] [id number] Resident 09/08/24 documented as of this encounter
--- OUTSIDE RECORDS SUMMARY | 2024-11-02 13:03 | XMS_ITS | Encounter Summary ---
Author Organization [facility] Address [address] [place] [address] Care Team Providers Care Drop Wire Builder Name Role Phone Alisa Kunz DO Primary Care Provider Kodi Bustos DO Unavailable [phone] Sujit Arriola MD Unavailable [phone] Sujit Reyes MD Unavailable [phone] Patricia Yañez LPN Unavailable Unavailab Zee Lr DO Unavailable [phone] Reason for Visit * Reason Onset Date Comments HCN Lab/home Health 09/28/2024 Encounter Details Date Type Department Care Team (Late st Contact Info) Description 09/28/2024 Telephone [facility] Internal Medicine [address]rd [place] [address] Alisa Kunz DO [address] [place] [address] HCN Lab/home Health Social History [...] often do you attend chur ch or zoroastrianism services? 1 to 4 times per year [...] Recorded Patient Health Questionnaire-2 Score 0 09/08/2024 [facility] - Occupational Stress Questionnaire Answer [...] drink first t anselmo in the morning (EYE-ROTARY ROCK DRILLING MACHINE OPERATOR) to steady your nerves or to get rid of a hangover? 0 08/14/2024 CAGE Questionnaire Score 0 025 Utilities Answer Date Recorded In the past 12 months has th e [employer], gas, oil, or water [employer] threatened to shut off services in your [...] should suffice. * Telephone Encounter - Johana Beguillemiya Derrick - 09/28/2024 4:14 PM EDT Lab [...] advise and frequency) Company and Caller Name: [employer] [phone] JUNE VERBAL Fax Number (if outside ): None Best contact number: Playdom [phone] Optimal time of day to reach caller: ANYTIME Additional comments/information from caller: None Note: Please do not reply to this message. Follow-up communication and further actions as a result of this message need to be communicated with the patient directly, if the patient is not active onMyChart. If the patient is active on MyChart, they will receive notification of the communication/outcome via Diaferon. documented in this encounter Plan of Treatment Upcoming Encounters Date Type Department Care Team (Late st Contact Info) Description 12/06/2024 11:20 AM EDT Office Visit [facility] Internal Medicine [address]rd [place] [address] Alisa Kunz, [address] [place] [address] 12/23/2024 4:00 PM EDT Office Visit [facility] Medicine Specialties [address]nd [place] [address] Lavern Shoemaker MD 800 [place] [address] 02/02/2025 8:40 AM EST Office Visit [facility] Internal Medicine [address], [address]rd [place] [address] Alisa Kunz DO [address] [place] [address] 02/09/2025 12:20 PM EST Office Visit [facility] Endocrinology [address] [place] [address] Anne-Marie Kolb L, ROVING CAN TENDER [address] [place] [address] documented as of this encounter [...] documented as of this encounter Care Teams Drop Wire Builder Relationship Specialty Start Date End Date Alisa Kunz DO [address] [place] [address] PCP - General Internal Medicine 03/13/21 Kodi Bustos DO [address] [address] Surgeon Cardiothoracic Surgery 11/06/22 Sujit Arriola MD [address] [place] [address] Consulting Physician Pulmonary Disease 11/06/22 Sujit Reyes MD [address] [place] [address] Referring Physician 12/04/22 Patricia Yañez LPN [facility] TCM Nurse 08/25/24 10/17/24 Zee Lazar DO [address] [place] [address] Resident 09/08/24 documented as of this encounter
--- OUTSIDE RECORDS SUMMARY | 2024-11-02 13:03 | XMS_ITS | Encounter Summary ---
Author Organization Healthcare Address [address] [place] [address] Care Team Providers Care Communication And Outreach Manager Name Role Phone Alisa Kunz DO Primary Care Provider [phone] Kodi Bustos DO Unavailable [phone] Sujit Arriola MD Unavailable [phone] Sujit Reyes MD Unavailable [phone] Patricia Yañez LPN Unavailable Unavailab Zee Lr DO Unavailable [phone] Encounter Details Date Type Department Care Team [...] [facility] of Occupat ional [facility] - Occupational Stress Questionnaire Answer Date [...] any time in the past 12 m [facility], were you homeless or living [...] any time in the past 12 m [facility], were you homeless or living [...] drink first t anselmo in the morning (EYE-BASE PLY HAND) to steady your nerves or to [...] Description 12/06/2024 11:20 AM EDT Office Visit [facility] Internal Medicine [address], [address]rd Floor [place] [address] Alisa Kunz, DO [address] [address] 12/23/2024 4:00 PM EDT Office Visit [facility] Medicine Specialties [address], [address]nd [place] [address] Lavern Shoemaker MD 800 [place] [address] 02/02/2025 8:40 AM EST Office Visit [facility] Internal Medicine [address], 3rd [place] [address] Alisa Kunz, DO [address] [place] [address] 02/09/2025 12:20 PM EST Office [facility] Endocrinology [address] [place] [address] Cortes Anne-Marie Torri, WORK COUNSELOR [address] [place] [address] [place] [address] documented as of this encounter [...] documented as of this encounter Care Teams Communication And Outreach Manager Relationship Specialty Start Date End Date Alisa Kunz DO [address] [place] [address] PCP - General Internal Medicine 03/13/21 Kodi Bustos DO [address] [address] Surgeon Cardiothoracic Surgery 11/06/22 Sujit Arriola MD [address] [place] [address] Consulting Physician Pulmonary Disease 11/06/22 Sujit Reyes MD [address] [place] [address] Referring Physician 12/04/22 Patricia Yañez, OCCUPATIONAL THERAPY DEPARTMENT CHAIR [facility] TCM Nurse 08/25/24 10/17/24 Zee Lazar DO [address] [place] [address] Resident 09/08/24 documented as of this encounter
--- OUTSIDE RECORDS SUMMARY | 2024-11-02 13:03 | XMS_ITS | Encounter Summary ---
Author Organization Healthcare Address [address] [place] [address] Care Team Providers Care Filling Carrier Name Role Phone Alisa Kunz DO Primary Care Provider [phone] Kodi Bustos DO Unavailable [phone] Sujit Arriola MD Unavailable [phone] Sujit Reyes MD Unavailable [phone] Patricia Yañez LPN Unavailable Unavailab Zee Lr DO Unavailable [phone] Encounter Details Date Type Department Care Team [...] [facility] of Occupat ional [facility] - Occupational Stress Questionnaire Answer Date [...] in a care home (including now)? No 09/17/2024 CAGE ASSESSMENT [...] drink first t anselmo in the morning (EYE-ELEMENTARY VOCAL MUSIC TEACHER) to steady your nerves or to [...] Description 12/06/2024 11:20 AM EDT Office Visit [facility] Internal Medicine [address] Floor [place] [phone] Alisa Kunz, DO [address] [address] 12/23/2024 4:00 PM EDT Office Visit [facility] Medicine Specialties [address] [place] [address] Lavern Shoemaker MD 800 [place] [address] 02/02/2025 8:40 AM EST Office Visit [facility] Internal Medicine [address], 3rd [place] [address] Alisa Kunz, DO [address] [place] [address] 02/09/2025 12:20 PM EST Office Visit [facility] Endocrinology [address] [place] [address] Cortes Anne-Marie Torri, ROUTE SERVICE MANAGER [address] [place] [address] documented as of this encounter [...] documented as of this encounter Care Teams Filling Carrier Relationship Specialty Start Date End Date Alisa Kunz DO [address] [place] [address] PCP - General Internal Medicine 03/13/21 Kodi Bustos DO [address] [address] Surgeon Cardiothoracic Surgery 11/06/22 Sujit Arriola MD [address] [place] [address] Consulting Physician Pulmonary Disease 11/06/22 Sujit Reyes MD [address] [place] [address] Referring Physician 12/04/22 Patricia Yañez, SPOOL WINDER [facility] TCM Nurse 08/25/24 10/17/24 Zee Lazar DO [address] [place] [address] Resident 09/08/24 documented as of this encounter
--- OUTSIDE RECORDS SUMMARY | 2024-11-02 13:03 | XMS_ITS | Encounter Summary ---
Author Organization [facility] Address [address] [place] [address] Care Team Providers Care Curtain Fitter Name Role Phone Alisa Kunz DO Primary Care Provider Kodi Bustos DO Unavailable [phone] Sujit Arriola MD Unavailable [phone] Sujit Reyes MD Unavailable [phone] Patricia Yañez LPN Unavailable Unavailab Zee Lr DO Unavailable [phone] Reason for Visit * Reason Onset Date Comments HCN - Patient Message 09/23/2024 Encounter Details Date Type Department Care Team (Late st Contact Info) Description 09/23/2024 Telephone [facility] Internal Medicine [address]rd [place] [address] Alisa Kunz DO [address] [place] [address] HCN - Patient Message Social [...] Recorded Patient Health Questionnaire-2 Score 0 09/08/2024 [facility] of Occupat ional Health - Occupational [...] drink first t anselmo in the morning (EYE-SEAT COVERER) to steady your nerves or to get rid of a hangover? 0 08/14/2024 CAGE Questionnaire Score 0 025 Utilities Answer Date Recorded In the past 12 months has th [employer], gas, oil, or water [employer] threatened to shut off services in your [...] optimal time of day to reach caller: [phone] Note: Please do not reply to this [...] 12/06/2024 11:20 AM EDT Office Visit [facility] Internal Medicine [address] 3rd [place] [address] Alisa Kunz, DO [address] [place] [address] 12/23/2024 4:00 PM EDT Office Visit [facility] Medicine Specialties [address] [place] [address] Lavern Shoemaker MD [address] [place], [place] [id number] 02/02/2025 8:40 AM EST Office Visit [facility] Internal Medicine [address] [place] [address] Alisa Kunz, DO [address] [place] [address] 02/09/2025 12:20 PM EST [facility] [address] [place] [address] Anne-Marie Kolb, COLOR SPECIALIST [address] [place] [address] documented as of this encounter Visit Diagnoses [...] documented as of this encounter Care Teams Curtain Fitter Relationship Specialty Start Date End Date Alisa Kunz DO [address] [place] [address] PCP - General Internal Medicine 03/13/21 Kodi Bustos, DO [address] [address] Surgeon Cardiothoracic Surgery 11/06/22 Sujit Arriola MD [address] [place] [address] Consulting Physician Pulmonary Disease 11/06/22 Sujit Reyes MD [address] [place] [address] Referring Physician 12/04/22 Patricia Yañez LPN [facility] TCM Nurse 08/25/24 10/17/24 Zee Lazar DO [address] [place] [address] Resident 09/08/24 documented as of this encounter
--- OUTSIDE RECORDS SUMMARY | 2024-11-02 13:04 | XMS_ITS | Encounter Summary ---
Author Organization [facility] Address [address] [place] [address] Care Team Providers Care Rn Gyn Name Role Phone Alisa Kunz DO Primary Care Provider Kodi Bustos DO Unavailable [phone] Sujit Arriola MD Unavailable [phone] Sujit Reyes MD Unavailable [phone] Zee Lazar DO Unavailable [phone] Reason for Visit * Reason Onset Date Comments HCN Lab/home Health 11/02/2024 Encounter Details Date Type Department Care Team (Late st Contact Info) Description 11/02/2024 Telephone [facility] Internal Medicine [address] 3rd [place] [address] Alisa Kunz DO [address] [place] [address] HCN Lab/home Health Social History [...] Recorded Patient Health Questionnaire-2 Score 0 10/27/2024 [facility] ional [facility] - [...] drink first t anselmo in the morning (EYE-ENTRY LEVEL ELECTRICIAN) to steady your nerves or to get rid of a hangover? 0 08/14/2024 CAGE Questionnaire Score 0 025 Utilities Answer Date Recorded In the past 12 months has th e [employer], gas, oil, or water [employer] threatened to shut off services in [...] * Telephone Encounter - Shannen Stephens - 11/02/2024 10:28 AM EDT Called and gave vo * Telephone Encounter - Lea Felipe - 11/02/2024 9:55 AM EDT Clinical Concern/Question Reason for Call: Need verbal orders for 4 more weeks of PT. Please call Best contact number: Other: [phone] Optimal time of day to reach caller: [...] Description 12/06/2024 11:20 AM EDT Office Visit [facility] Internal Medicine [address], 3rd [place] [address] Alisa Kunz, DO [address] [facility] [address] [place] [address] 12/23/2024 4:00 PM EDT Office Visit [facility] Medicine Specialties [address]nd [place] [address] Lavern Shoemaker MD [address] [place] [address] 02/02/2025 8:40 AM EST Office Visit [facility] Internal Medicine [address] 3rd [place] [address] Alisa Kunz, DO [address] [place] [address] 02/09/2025 12:20 PM EST Office Visit [facility] Endocrinology [address] [place] [address] Anne-Marie Kolb, LAMBSKIN TRIMMER [address] [place] [address] documented as of this encounter Visit Diagnoses [...] as of this encounter Care Teams Rn Gyn Relationship Specialty Start Date End Date Alisa Kunz DO [address] [place] [address] PCP - General Internal Medicine 03/13/21 Kodi Bustos DO [address] [address] Surgeon Cardiothoracic Surgery 11/06/22 Sujit Arriola MD [address] [place] [address] Consulting Physician Pulmonary Disease 11/06/22 Sujit Reyes MD [address] [place] [address] Referring Physician 12/04/22 Zee Lazar DO [address] [place], [place] [id number] Resident 09/08/24 documented as of this encounter
--- OUTSIDE RECORDS SUMMARY | 2024-11-02 13:04 | XMS_ITS | Encounter Summary ---
Author Organization [facility] ystem Address [address] [place] [address] Care Team Providers Care Wrist Hemmer Name Role Phone Alisa Kunz Primary Care Provider [phone]- [phone] Encounter Details Date Type Department Care Team (Late st Contact Info) Description 10/07/2024 Telephone [facility] [address] [facility] [address] [place] [address] Mike Mariee, Acute Care Nurse Practitioner Social History Tobacco Use Types Packs/Day Years [...] Notes * Telephone Encounter - Mike Mariee, Acute Care Nurse Practitioner - 10/07/2024 2:16 PM EDT Called patient to discuss HM or remote lab options for INR rechecks. Patient would prefer to continue with Ge HM and will schedule in clinic appt in the future to obtain replacement HM. Mike Mariee [facility] 10/07/2024 14:18 EDT documented in this encounter Plan of Treatment Upcoming Encounters Date Type Department Care Team (Late st Contact Info) Description 12/02/2024 3:30 PM EDT Office Visit [facility] CARDIOLOGY [address] [facility] [place] [place] [address] Sujit Reyes MD [address] [place] [id number] 01/19/2025 1:45 PM EST Office Visit [facility] [address] [place] [address] Naveen Velasquez MD [address] [place] [address] documented as of this encounter Visit Diagnoses Not on filedocumented in this encounter Care Teams Wrist Hemmer Relationship Specialty Start Date End Date Alisa Kunz DO [address] [place] [address] PCP - General Internal Medicine 04/26/21 documented as of this encounter
--- OUTSIDE RECORDS SUMMARY | 2024-11-02 13:04 | XMS_ITS | Encounter Summary ---
Author Organization [facility] ystem Address [address] [place] [address] Care Team Providers Care Hogshead Salvage Name Role Phone Alisa Kunz Primary Care Provider [phone]- [phone] Reason for Visit * Reason Comments Med Refill Encounter Details Date Type Department Care Team (Late st Contact Info) Description 10/14/2023 Refill [facility] CARDIOLOGY [address] [place] [address] Sujit Reyes MD [address] [facility] [address] [place] [address] Med Refill Social History Tobacco Use Types [...] CENTER CARDIOLOGY [address] [place] [address] Sujit Reyes MD 1720 [facility] [address] [place] [address] 01/19/2025 1:45 PM EST Office Visit [facility] CARDIOLOGY [address] [facility] [address] [place] [address] Naveen Velasquez MD [address] [facility] [address] [place], [place] [phone] documented as of this encounter Visit Diagnoses Not on filedocumented in this encounter Care Teams Hogshead Salvage Relationship Specialty Start Date End Date lAisa Kunz DO [address] [place], [place] [address] PCP - General Internal Medicine 04/26/21 documented as of this encounter
--- OUTSIDE RECORDS SUMMARY | 2024-11-02 13:04 | XMS_ITS | Encounter Summary ---
Author Organization [facility] Address [address] [place] [address] Care Team Providers Care Managed Care Coordinator Name Role Phone Alisa Kunz DO Primary Care Provider [phone] Laura Albright CELL TUBER HAND Unavailable Unavailable Balwinder Vale Unavailable Unavailable Kodi Bustos DO Unavailable [phone] Sujit Arriola MD Unavailable [phone] HatLaura navas LPN Unavailable Unavailable Sujit Reyes MD Unavailable [phone] Zully Caldwell CELL TUBER HAND Unavailable Unavailable HatLaura navas CELL TUBER HAND Unavailable Unavailable HatLaura navas CELL TUBER HAND Unavailable Unavailable Tanya Powell Unavailable [phone] Sarah Reyes CELL TUBER HAND Unavailable Unavailable Ekaterina Gómez Unavailable Unavailable Zully Caldwell CELL TUBER HAND Unavailable Unavailable Ekaterina Gómez Unavailable Unavailable Patricia Yañez CELL TUBER HAND Unavailable Unavailab eZe Lr DO Unavailable [phone] Reason for Visit * Reason Comments Med Refill Encounter Details Date Type Department Care Team (Late st Contact Info) Description 03/18/2022 Refill [facility] Internal Medicine [address] 3rd [place] [address] Alisa Kunz DO [address] [place] [address] Social History Tobacco Use Types [...] Description 12/06/2024 11:20 AM EDT Office Visit [facility] Internal Medicine [address] 3rd [place] [address] Alisa Kunz DO [address] [place] [address] 12/23/2024 4:00 PM EDT Office Visit [facility] Medicine Specialties [address]nd [place] [address] Lavern Shoemaker MD [address] [id number] 02/02/2025 8:40 AM EST Office Visit [facility] Internal Medicine [address], 3rd [place] [address] Alisa Kunz L, DO [address] [place] [address] 02/09/2025 12:20 PM EST [facility] End[facility] [address] [place] [address] Anne-Marie Kolb, SALES AGENT [employer]ANCE [address] [facility] 125 [place] [address] documented as of this encounter [...] documented as of this encounter Care Teams Managed Care Coordinator Relationship Specialty Start Date End Date Alisa Kunz DO [address] [place] [address] PCP - General Internal Medicine 03/13/21 Laura Albright LPN VALUE-[employer]ED [place] [address] TCM Nurse 08/30/22 09/27/22 Balwinder Vale [address] [address] Community Health Worker Dianetic Counselor 08/30/22 09/06/22 Kodi Bustos DO [address] [address] Surgeon Cardiothoracic Surgery 11/06/22 Sujit Arriola MD [address] [place] [address] Consulting Physician Pulmonary Disease 11/06/22 Laura Albright LPN VALUE[employer]ED [place] [address] TCM Nurse 12/02/22 01/01/23 Sujit Reyes MD [address] [place] [address] Referring Physician 12/04/22 Zully Caldwell LPN VALUE-[employer]ED [place] [address] TCM Nurse 02/03/23 03/05/23 Laura Albright LPN VALUE-[employer]ED [place] [address] TCM Nurse 08/05/23 09/04/23 Laura Albright LPN VALUE-[employer]ED [place] [address] TCM Nurse 02/17/24 03/18/24 Tanya Powell [address] [facility] 125 [place] [address] Registered Nurse 04/02/24 07/01/24 Sarah Reyes LPN TCM Nurse 05/27/24 06/26/24 Ekaterina Gómez Senior Asset Manager Dianetic Counselor 07/14/24 07/14/24 Zully Caldwell LPN VALUE[employer]ED [place] [address] TCM Nurse 07/16/24 08/15/24 Ekaterina Gómez Senior Asset Manager Dianetic Counselor 08/16/24 08/16/24 Patricia Yañez LPN [facility] TCM Nurse 08/25/24 10/17/24 Zee Lazar DO [address] [place] [address] Resident 09/08/24 documented as of this encounter
--- OUTSIDE RECORDS SUMMARY | 2024-11-02 13:04 | XMS_ITS | Encounter Summary ---
Author Organization [facility] Address [address] [place] [address] Care Team Providers Care Upper Marker Name Role Phone Alisa Kunz Primary Care Provider [phone]- [phone] Encounter Details Date Type Department Care Team (Latest Contact Info) Description 10/05/2024 Anticoagulation Visit [facility] ANTICO[facility]ULATION CLINIC [address] [facility] 606 [place] [address] Mike Mariee, Hide And Skin Classer Left ventricular apical thrombus (Primary Dx) Social [...] this encounter Progress Notes * Mike Mariee, Hide And Skin Classer - 10/05/2024 8:42 AM EDT [facility] Progress Note Patient Demographics Method of INR reporting: AnaptysBio Home Monitor SN [id number] Estimated OOP Cost: Indication: Left Ventricular Atypical Thrombus (~2012) Referring Provider Nanette Pryor APRN Reason patient is not on a DOAC: Goal INR: 2-3 Warfarin Start Date ~02/12/24 Reason patient is not on home monitor: [id number]: Planned Duration of Therapy Indefinite Relevant medical [...] - HM 1.4 - Clinic 1.32 - SLURRY PLANT OPERATOR 2.8 2.0 Notes Admitted [facility] Rec'd [...] Verbal release: Signed 03/05/24 Preferred contact number: [phone] Alternative contact number(s): [phone] (Doron) [phone] (Ruthie) [phone] (Madyson) Patient Appropriate for WarfNoCall ? No [...] further questions at this time. Mike Mariee [facility] 10/05/2024 09:01 EDT I, Marj Delgado, PharmD, have reviewed the note in full and agree with the assessment and plan. 10/05/24 09:48 EDT documented in this encounter Plan of Treatment Upcoming Encounters Date Type Department Care Team (Late st Contact Info) Description 12/02/2024 3:30 PM EDT Office Visit [facility] CARDIOLOGY [address] [place] [address] [place] [address] Sujit Reyes MD [address] [facility] [address] [address] 01/19/2025 1:45 PM EST Office Visit [facility] C[facility] 1720 [facility] [address] [place] [address] Naveen Velasquez MD [address]20 [facility] E [address] [place], [place] [phone] documented as of this encounter Procedures Procedure Name Priority Date/Time Associated Diagnosis Comments SCANNED - LABS 10/05/2024 PROTIME-INR Routine 10/04/2024 documented in this encounter Results * LABS SCANNED (10/05/2024) [facility] LAB BLOOD ORDERABLES Final Re sult * Protime-INR (10/04/2024) INR 2.04 Blood 10/04/2024 [facility] Provider LAB BLOOD ORDERABLES Lee Ann l Result documented in this encounter Visit Diagnoses Diagnosis Left ventricular apical thrombus- Primary documented in this encounter Care Teams Upper Marker Relationship Specialty Start Date End Date Alisa Kunz DO [address] [place] [address] PCP - General Internal Medicine 04/26/21 documented as of this encounter
--- OUTSIDE RECORDS SUMMARY | 2024-11-02 13:04 | XMS_ITS | Encounter Summary ---
Author Organization [facility] Address [address] [place] [address] Care Team Providers Care Teradata Solution Architect Name Role Phone Alisa Kunz DO Primary Care Provider [phone] Kodi Bustos DO Unavailable [phone] Sujit Arriola MD Unavailable [phone] Sujit Reyes MD Unavailable [phone] Zee Lazar DO Unavailable [phone] Encounter Details Date Type Department Care Team (Late st Contact Info) Description 11/01/2024 Telephone [facility] Internal Medicine [address], 3rd [place] [address] Alisa Kunz DO [address] [place] [address] Social History Tobacco Use Types [...] Recorded Patient Health Questionnaire-2 Score 0 10/27/2024 [facility] of Occupat ional Health [...] drink first t anselmo in the morning (EYE-PHARMACISTS) to steady your nerves or to get rid of a hangover? 0 08/14/2024 CAGE Questionnaire Score 0 025 Utilities Answer Date Recorded In the past 12 months has th e [employer], gas, oil, or water company threatened to [...] * Telephone Encounter - Shannen Stephens - 11/01/2024 2:18 PM EDT noted * Telephone Encounter - Alisa Kunz DO - 11/01/2024 1:33 PM EDT We had tried to come down at patient's preference but had worsening symptoms: I just sent in a new script for 2 capsules BID. Thank you! documented in this encounter Plan of Treatment Upcoming Encounters Date Type Department Care Team (Late st Contact Info) Description 12/06/2024 11:20 AM EDT Office Visit [facility] Internal Medicine [address] 3rd [place] [address] Alisa Kunz, [address] [place] [address] 12/23/2024 4:00 PM EDT Office Visit [facility] Medicine Specialties [address]nd [place] [address] Lavern Shoemaker MD [address] [place], [place] [address] 02/02/2025 8:40 AM EST Office Visit [facility] Internal Medicine [address]rd [place] [address] Alisa Kunz, [address] [place] [address] 02/09/2025 12:20 PM EST Office Visit [facility] Endocrinology [address] [place] [address] Anne-Marie Kolb L, INSPECTOR FINAL ASSEMBLY CONVEYOR LINE [address] [facility] 125 [place] [address] documented as of this encounter Visit Diagnoses [...] documented as of this encounter Care Teams Teradata Solution Architect Relationship Specialty Start Date End Date Ailsa Kunz DO [address] [place] [address] PCP - General Internal Medicine 03/13/21 Kodi Bustos DO [address] [address] Surgeon Cardiothoracic Surgery 11/06/22 Sujit Arriola MD [address] [place] [address] Consulting Physician Pulmonary Disease 11/06/22 Sujit Reyes MD [address] [place] [address] Referring Physician 12/04/22 Zee Lazar DO [address] [place] [address] Resident 09/08/24 documented as of this encounter
--- OUTSIDE RECORDS SUMMARY | 2024-11-02 13:04 | XMS_ITS ---
Author Organization [facility] Address [address] [place] [address] Care Team Providers Care Physical Science Technician Name Role Phone Alisa Kunz Torri DO Primary Care Provider [phone] Kodi Bustos DO Unavailable [phone] Sujit Arriola MD Unavailable [phone] Sujit Reyes MD Unavailable [phone] Zee Lazar DO Unavailable [phone] Transitional Care Management Status:Closed (Closed) Start date:08/25/2024 Enrollment date:08/25/2024 Enrollment reason:Identified using hospital discharge data End date:09/17/2024 Close reason:Patient Readmitted Overview This episode type is for outpatient care managers enrolling patients in the [facility] Transitional Care Management program. Continued Care and Services Coordination
--- OUTSIDE RECORDS SUMMARY | 2024-11-02 13:04 | XMS_ITS | Encounter Summary ---
Author Organization [facility] ystem Address [address] [place] [address] Care Team Providers Care Daytime Caregiver Name Role Phone Alisa Kunz Primary Care Provider [phone] Reason for Referral * Cardiac (Routine) - Closed Specialty Diagnoses / Procedures Referred By Luis Armando t Referred To Contact Diagnoses Paroxysmal atrial fibrillation Procedures Cardioversion External in Cardiology Department Naveen Velasquez MD [address] [facility] [address] [place] [address] Phone: tel: fax: Referral ID Status Reason Start Date Expiration Date Visits Re quested Visits Authorized [id number] Closed 10/12/2024 01/04/2026 1 1 Reason for Visit * Reason Onset Date Comments DR[facility] - [facility] 10/05/2024 Encounter Details Date Type Department Care Team (Late st Contact Info) Description 10/05/2024 Telephone [facility] CARDIOLOGY [address] [facility] [address] [place] [address] Naveen Velasquez MD [address] [facility] [address] [place] [address] DR. VELASQUEZ - CARDIOVERSION Social History Tobacco [...] Felipe Relationship: Self Best call back number: [phone] What is the best time to reach [...] 12/02/2024 3:30 PM EDT Office Visit [facility] CARDIOLOG[facility] [address] [place] [address] [address] [place] [address] Sujit Reyes MD 1720 [facility] [address] [place], [place] [address] 01/19/2025 1:45 PM EST Office Visit [facility] CARDIOLOG[facility] [address] [facility] [address] [place] [address] Naveen Velasquez MD [address] [facility] [address] [place] [address] documented as of this encounter [...] fibrillation documented in this encounter Care Teams Daytime Caregiver Relationship Specialty Start Date End Date Alisa Kunz DO [address] [place] [address] PCP - General Internal Medicine 04/26/21 documented as of this encounter
--- OUTSIDE RECORDS SUMMARY | 2024-11-02 13:04 | XMS_ITS | Encounter Summary ---
Author Organization [facility] Address [address] [place] [address] Care Team Providers Care Supervisor Pressing Department Name Role Phone Alisa Kunz DO Primary Care Provider Kodi Bustos DO Unavailable [phone] Sujit Arriola MD Unavailable [phone] Sujit Reyes MD Unavailable [phone] Zee Lazar DO Unavailable [phone] Encounter Details Date Type Department Care Team (Late st Contact Info) Description 11/01/2024 Orders Only [facility] Internal Medicine [address]rd [place] [address] Alisa Kunz DO [address] [place] [address] Social History Tobacco Use Types [...] often do you attend chur ch or samaritan services? 1 to 4 times per year [...] Recorded Patient Health Questionnaire-2 Score 0 10/27/2024 [facility] of Occupat ional [...] drink first t anselmo in the morning (EYE-UPPER AND BOTTOM LACER HAND) to steady your nerves or to [...] Description 12/06/2024 11:20 AM EDT Office Visit [facility] Internal Medicine [address]rd [place] [address] Alisa Kunz DO [address] [place] [address] 12/23/2024 4:00 PM EDT Office Visit [facility] Medicine Specialties [address]nd [place] [address] Lavern Shoemaker MD [address] [place] [id number] 02/02/2025 8:40 AM EST Office Visit [facility] Internal Medicine [address]rd [place] [address] Alisa Kunz DO [address] [place] [address] 02/09/2025 12:20 PM EST Office Visit [facility] Endocrinology [address] [place] [address] CortesAnne-Marie houston L, PAINT DEPARTMENT SUPERVISOR [address] [place] [address] documented as of this encounter [...] as of this encounter Care Teams Supervisor Pressing Department Relationship Specialty Start Date End Date Alisa Kunz DO [address] [place] [address] PCP - General Internal Medicine 03/13/21 Kodi Bustos DO [address] [place] [address] Surgeon Cardiothoracic Surgery 11/06/22 Sujit Arriola MD [address] [place] [address] Consulting Physician Pulmonary Disease 11/06/22 Sujit Reyes MD [address] [place] [address] Referring Physician 12/04/22 Zee Lazar DO [address] [place] [address] Resident 09/08/24 documented as of this encounter
--- OUTSIDE RECORDS SUMMARY | 2024-11-02 13:05 | XMS_ITS | Encounter Summary ---
Author Organization [facility] Address [address] [address] Care Team Providers Care Sustainability Manager Name Role Phone Alisa Kunz Primary Care Provider [phone] Encounter Details Date Type Department Care Team (Late st Contact Info) Description 10/12/2024 Telephone [facility] ANTICO[facility]ULATION CLINIC [address] [facility] [address] [place] [address] Marj Delgado, PharmD [address] [place] [address] Social History Tobacco Use Types [...] 10:26 AM EDT Cece Prieto RN * [place] Suicide Severity Rating Scale (Screener/Recent Self-Report) Question [...] go get INR checked on Friday at [facility]. Marj Delgado PharmD 10/13/2024 11:45 EDT * Telephone Encounter - Marj Delgado PharmD - 10/12/2024 11:24 AM EDT Spoke to Rosalba from cardio, patients INR today on admission was 1.37, still having concerns over patients home monitor. Last INR check was 2.04 on 10/04 at [facility] (not home monitor)- patient had been taking [...] Office Visit [facility] CARDIOLOGY [address] [facility] [place] [place] [address] Sujit Reyes MD [address] [place] [address] 01/19/2025 1:45 PM EST Office Visit [facility] CARDIOLOGY [address] [place] [address] Naveen Velasquez MD [address] [place] [address] documented as of this encounter Visit Diagnoses Not on filedocumented in this encounter Care Teams Sustainability Manager Relationship Specialty Start Date End Date Alisa Kunz DO [address] [place] [address] PCP - General Internal Medicine 04/26/21 documented as of this encounter
--- OUTSIDE RECORDS SUMMARY | 2024-11-02 13:05 | XMS_ITS | Encounter Summary ---
Author Organization [facility] Address [address] [place] [address] Care Team Providers Care Dat Instructor Name Role Phone Alisa Kunz DO Primary Care Provider Kodi Bustos DO Unavailable [phone] Sujit Arriola MD Unavailable [phone] Sujit Reyes MD Unavailable [phone] Zully Caldwell ARCHIVIST NONPROFIT FOUNDATION Unavailable Unavailable Ekaterina Gómez Unavailable Unavailable Patricia Yañez ARCHIVIST [employer]PROFIT FOUNDATION Unavailable Unavailab Zee Lr DO Unavailable [phone] Reason for Visit * Reason Onset Date Comments HCN Clinical Concern/Question 08/09/2024 Encounter Details Date Type Department Care Team (Late st Contact Info) Description 08/09/2024 Telephone [facility] [address], [address] [place] [address] Cassius Gonzales MD [address] [place] [address] HCN Clinical Concern/Question Social History [...] 0 09/08/2024 [facility] - Occupational Stress Questionnaire Answer [...] drink first t anselmo in the morning (EYE-SLOT MACHINE DEPARTMENT FLOORPERSON) to steady your nerves or to get rid of a hangover? 0 08/14/2024 CAGE Questionnaire Score 0 025 Utilities Answer Date Recorded In the past 12 months has th [employer], gas, oil, or water [employer] threatened to shut off services in your [...] needing a heart cath. Best contact number: [phone] Optimal time of day to reach caller: ANYTIME Additional comments/information from caller: None Note: Please do not reply to this message. Follow-up communication and further actions as a result of this message need to be communicated with the patient directly, if the patient is not active onMyChart. If the patient is active on MyChart, they will receive notification of the communication/outcome via Oscar[employer]. documented in this encounter Plan of Treatment Upcoming Encounters Date Type Department Care Team (Late st Contact Info) Description 12/06/2024 11:20 AM EDT Office Visit [facility] Internal Medicine [address] [place] [address] Alisa Kunz DO [address] [facility] [address] [place] [address] 12/23/2024 4:00 PM EDT Office Visit [facility] Medicine Specialties [address], [address] [place] [address] Lavern Shoemaker MD [address] [place], [place] [id number] 02/02/2025 8:40 AM EST Office Visit [facility] Internal Medicine [address], [address] [place] [address] Alisa Kunz DO [address] [address] 02/09/2025 12:20 PM EST [facility] [address] [place] [address] Anne-Marie Kolb L, BANK REPRESENTATIVE [address] [facility] [address] [place] [address] documented as of this encounter Visit Diagnoses [...] documented as of this encounter Care Teams Dat Instructor Relationship Specialty Start Date End Date Alisa Kunz DO [address] [place] [address] PCP - General Internal Medicine 03/13/21 Kodi Bustos DO [address] [phone] Surgeon Cardiothoracic Surgery 11/06/22 Sujit Arriola MD [address] [place] [address] Consulting Physician Pulmonary Disease 11/06/22 Sujit Reyes MD [address] [facility] [address] [place] [address] Referring Physician 12/04/22 Zully Caldwell LPN VALUE-[place] [place] [address] TCM Nurse 07/16/24 08/15/24 Ekaterina Gómez National Accounts Recruiter Production Broaching Machine Operator 08/16/24 08/16/24 Patricia Yañez LPN [facility] TCM Nurse 08/25/24 10/17/24 Zee Lazar DO [address] [place] [address] Resident 09/08/24 documented as of this encounter
--- OUTSIDE RECORDS SUMMARY | 2024-11-02 13:05 | XMS_ITS | Encounter Summary ---
[facility] Address [address] [place] [address] Care Team Providers Care Textile Colorist Formulator Name Role Phone Alisa Kunz Primary Care Provider [phone] Encounter Details Date Type Department Care Team [...] 10:26 AM EDT Cece Prieto RN * [place] Suicide Severity Rating Scale (Screener/Recent Self-Report) Question Answer Date of Assessment Author 6. Suicidal Behavior (Lifetime) No 10:26 AM EDT Cece Prieto RN documented as of this encounter Plan of Treatment Upcoming Encounters Date Type Department Care Team (Late st Contact Info) Description 12/02/2024 3:30 PM EDT Office Visit [facility] CARDIOLOGY [address] [facility] [place] [address] Sujit Reyes MD [address] [facility] [address] [place] [address] 01/19/2025 1:45 PM EST Office Visit [facility] CARDIOLOGY [address] [facility] [address] [place] [address] Naveen Velasquez MD [address] [facility] [address] [place] [address] documented as of this encounter Visit Diagnoses Not on filedocumented in this encounter Care Teams Textile Colorist Formulator Relationship Specialty Start Date End Date Alisa Kunz DO [address] [place] [address] PCP - General Internal Medicine 04/26/21 documented as of this encounter
--- OUTSIDE RECORDS SUMMARY | 2024-11-02 13:05 | XMS_ITS | Encounter Summary ---
Author Organization [facility] Address [address] [place] [address] Care Team Providers Care Oil Refiner Name Role Phone Alisa Kunz DO Primary Care Provider [phone] Kodi Bustos DO Unavailable [phone] Sujit Arriola MD Unavailable [phone] Sujit Reyes MD Unavailable [phone] Patricia Yañez LPN Unavailable Unavailab Zee Lr DO Unavailable [phone] Reason for Visit * Reason Comments TCM Call Encounter Details Date Type Department Care Team (Late st Contact Info) Description 08/25/2024 Patient Outreach [facility] [address] [facility] [place] [address] Patricia Yañez LPN [facility] TCM Call Social History [...] often do you attend chur ch or mu-ism services? 1 to 4 times [...] drink first t anselmo in the morning (EYE-CUSTOMS VERIFIER) to steady your nerves or to get [...] Date: 08/14/2024 Discharge Date: 08/24/2024 Hospital Service: [facility] Discharge Diagnosis: Acute on chronic hypoxic respiratory [...] Description 12/06/2024 11:20 AM EDT Office Visit [facility] Internal Medicine [address] 3rd [place] [address] Alisa Kunz DO [address] [place] [address] 12/23/2024 4:00 PM EDT Office Visit [facility] Medicine Specialties [address] [place] [address] Lavern Shoemaker MD [address] [place], [place] [id number] 02/02/2025 8:40 AM EST Office Visit [facility] Internal Medicine [address] 3rd [place] [address] Alisa Kunz DO [address] [place] [address] 02/09/2025 12:20 PM EST Office Visit [facility] Endocrinology [address] [place] [address] Anne-Marie Kolb, INSTRUCTIONAL DESIGN MANAGER [address] [facility] [address] [place] [address] documented as of this encounter [...] as of this encounter Care Teams Oil Refiner Relationship Specialty Start Date End Date Alisa Kunz DO [address] [place] [address] PCP - General Internal Medicine 03/13/21 Kodi Bustos DO [address] [phone] Surgeon Cardiothoracic Surgery 11/06/22 Sujit Arriola MD [address] [place] [address] Consulting Physician Pulmonary Disease 11/06/22 Sujit Reyes MD [address] [place] [address] Referring Physician 12/04/22 Patricia Yañez LPN [facility] TCM Nurse 08/25/24 10/17/24 Zee Lazar DO [address] [place] [id number] Resident 09/08/24 documented as of this encounter
--- OUTSIDE RECORDS SUMMARY | 2024-11-02 13:05 | XMS_ITS | Encounter Summary ---
Author Organization [facility] Address [address] [place] [address] Care Team Providers Care Wafer Batter Mixer Name Role Phone Alisa Kunz DO Primary Care Provider Kodi Bustos DO Unavailable [phone] Sujit Arriola MD Unavailable [phone] Sujit Reyes MD Unavailable [phone] Patricia Yañez LPN Unavailable Unavailab Zee Lr DO Unavailable [phone] Reason for Visit * Reason Onset Date Comments HCN Clinical Concern/Question 08/30/2024 Encounter Details Date Type Department Care Team (Late st Contact Info) Description 08/30/2024 Telephone [facility] Internal Medicine [address] [place] [address] Alisa Kunz DO [address] [place] [address] HCN Clinical Concern/Question Social History [...] Recorded Patient Health Questionnaire-2 Score 0 09/08/2024 [facility] - Occupational Stress Questionnaire [...] drink first t anselmo in the morning (EYE-CASE PACKER) to steady your nerves or to get rid of a hangover? 0 08/14/2024 CAGE Questionnaire Score 0 025 Utilities Answer Date Recorded In the past 12 months has th e [employer], gas, oil, or water [employer] threatened to shut off services in your [...] Please call to advise Best contact number: [phone] (mobile) Optimal time of day to reach [...] AM EDT Office Visit [facility] Internal Medicine [address] [place] [address] Alisa Kunz, DO [address] [place] [address] 12/23/2024 4:00 PM EDT Office Visit [facility] Specialties [address] [place] [address] Lavern Shoemaker MD [address] [place], [place] [id number] 02/02/2025 8:40 AM EST Office Visit [facility] Internal Medicine [address] [place] [address] Alisa Kunz, DO [address] [place] [address] 02/09/2025 12:20 PM EST Office Visit [facility] Endocrinology [address] [place] [address] Anne-Marie Kolb L, OPTICAL LAB TECHNICIAN [address] [facility] [address] [place] [address] documented as of this encounter Visit Diagnoses [...] documented as of this encounter Care Teams Wafer Batter Mixer Relationship Specialty Start Date End Date Alisa Kunz DO [address] [place] [address] PCP - General Internal Medicine 03/13/21 Kodi Bustos DO [address] [address] Surgeon Cardiothoracic Surgery 11/06/22 Sujit Arriola MD [address] [place] [address] Consulting Physician Pulmonary Disease 11/06/22 Sujit Reyes MD [address] [place] [address] Referring Physician 12/04/22 Patricia Yañez LPN [facility] TCM Nurse 08/25/24 10/17/24 Zee Lazar DO [address] [place], [place] [id number] Resident 09/08/24 documented as of this encounter
--- OUTSIDE RECORDS SUMMARY | 2024-11-02 13:05 | XMS_ITS | Encounter Summary ---
Author Organization [facility] Address [address] [place] [address] Care Team Providers Care Orthopedic Physical Therapist Name Role Phone Ze, Alisa Wild DO Primary Care Provider Kodi Bustos DO Unavailable [phone] Sujit Arriola MD Unavailable [phone] Sujit Reyes MD Unavailable [phone] Zully Caldwell CONTRACT IMPLEMENTATION ANALYST Unavailable Unavailable Ekaterina Gómez Unavailable Unavailable Patricia Yañez CONTRACT IMPLEMENTATION ANALYST Unavailable Unavailab le Encounter Details Date Type Department Care Team (Late st Contact Info) Description 08/06/2024 Telephone [facility] Endocrinology [address] [place] [address] Anne-Marie Kolb, HEAVY DUTY MECHANIC FARM EQUIPMENT [address] [facility] [address] [place] [address] Social History Tobacco Use [...] 08/04/2024 [facility] [...] drink first t anselmo in the morning (EYE-HISTOLOGIST) to steady your nerves or to get rid of a hangover? 0 08/14/2024 CAGE Questionnaire Score 0 025 Utilities Answer Date Recorded In the past 12 months has e [employer], gas, oil, or water [employer] threatened to shut off services in your [...] Description 12/06/2024 11:20 AM EDT Office Visit [facility] Internal Medicine [address], [address] [place] [address] Alisa Kunz, [address] [place] [address] 12/23/2024 4:00 PM EDT Office Visit [facility] Medicine Specialties [address] [place] [address] Lavern Shoemaker MD [address] [place] [address] 02/02/2025 8:40 AM EST Office Visit [facility] Internal Medicine [address] [place] [address] Alisa Kunz DO [address] [facility] [address] [place] [address] 02/09/2025 12:20 PM EST Office Visit [facility] Endocrinology [address] [place] [address] Anne-Marie Kolb L, HEAVY DUTY MECHANIC FARM EQUIPMENT [address] [facility] [address] [place] [address] documented as of this encounter [...] documented as of this encounter Care Teams Orthopedic Physical Therapist Relationship Specialty Start Date End Date Alisa Kunz DO [address] [facility] [address] [place] [address] PCP - General Internal Medicine 03/13/21 Kodi Bustos DO [address] [address] Surgeon Cardiothoracic Surgery 11/06/22 Sujit Arriola MD [address] [place] [address] Consulting Physician Pulmonary Disease 11/06/22 Sujit Reyes MD [address] [place] [address] Referring Physician 12/04/22 Zully Caldwell LPN VALUE-BASED [place] [address] TCM Nurse 07/16/24 08/15/24 Ekaterina Gómez Postal Carrier Health Plan Advisor 08/16/24 08/16/24 Patricia Yañez LPN [facility] TCM Nurse 08/25/24 10/17/24 documented as of this encounter
--- OUTSIDE RECORDS SUMMARY | 2024-11-02 13:06 | XMS_ITS | Clinical Summary ---
Author Organization [facility] Address [address] [place] [address] Care Team Providers Care Laborer Sawmill Name Role Phone Alisa Kunz DO Primary Care Provider Kodi Bustos DO Unavailable [phone] Sujit Arriola MD Unavailable [phone] Sujit Reyes MD Unavailable [phone] Zee Lazar DO Unavailable [phone] Allergies Active Allergy Reactions Criticality Noted Date [...] penIndications:T ype 1 diabetes mellitus with hyperglycemia ([facility]) Inject 2-6 units before meals plus 1:60>150. Max tdd 30 units 30 mL 2 Active insulin glargine (Toujeo SoloStar) 300 UNIT/ML injection pen (1 UNIT DIAL)Indications :Type 1 diabetes mellitus with hyperglycemia ([facility]) Inject 14 Units under the skin every morning. 4.5 mL 3 025 2025 Active Probiotic Product (acidophilus probiotic blend) capsule Take 1 capsule by mouth daily. Active mycophenolate (CellCept) 500 MG tabletIndication s:Systemic lupus erythematosus (SLE) in adult ([facility]) Take 2 tablets by mouth 2 times a day. 360 tablet 1 Active ferrous sulfate 324 (65 Fe) MG EC tablet Take 1 tablet by mouth daily with breakfast. Do not crush, chew, or split. Active spironolactone (Aldactone) 25 MG tablet Take 0.5 tablets by mouth daily. Active Additional Information Patient taking differently:12.5 mg Oral Daily,Taking 1/4th tablet d/t feeling dizzy when she takes it, Reported on 10/27/2024 hydroxychloroqui ne (Plaquenil) 200 MG tabletIndication s:Systemic lupus erythematosus (SLE) in adult ([facility]) Take 1.5 tablets by mouth daily. 45 tablet 5 025 2025 Active Blood Glucose Monitoring Suppl (Blood Glucose Monitor System) w/Device kit Test blood sugars twice a day to calibrate cgm. Dx E10.65 1 kit 025 Active glucose blood test strip Use to test blood sugars twice a day to calibrate cgm. Dx 10.65 100 each 12 025 Active Lancets misc Use twice a day to calibrate cgm Dx E10.65 100 each 3 025 Active sucralfate (Carafate) 1 GM/10ML suspension Take 10 mL by mouth 4 times a day. 473 mL 11 025 Active furosemide (Lasix) 80 MG tablet Take 1 tablet by mouth daily. 30 tablet 2 025 Active Pitavastatin Calcium (Livalo) 4 MG tabletIndication s:Type 1 diabetes mellitus with other specified complication ([facility]/HCC),Dyslip idemia Take 1 tablet by mouth daily. 90 tablet 3 025 Active gabapentin (Neurontin) 300 MG capsule Take 2 capsules by mouth 2 times a day. 120 capsule 2 025 Active lisinopril 20 MG tabletIndication s:Essential hypertension [...] a day. 60 capsule 025 2024 Discontinued Pitavastatin Calcium (Livalo) 4 MG tabletIndication s:Type 1 diabetes mellitus with other specified complication (CMS/HCC),Dyslip idemia Take 1 tablet by mouth daily. 90 tablet 025 2024 Discontinued(R eorder) magnesium oxide (Mag-Ox) 400 mg tablet Take [...] 11 025 2024 Discontinued(P er Patient Report) gabapentin (Neurontin) 300 MG capsule TAKE 1 CAPSULE BY MOUTH 2 TIMES A DAY 60 capsule 2 025 2024 Discontinued(R eorder) Active Problems Problem [...] been switched to warfarin. Follows with the [facility] anti-coagulation clinic closely. Coronary atherosclerosis of [...] From the hospital she was sent to [facility] for rehab. - Slowly improving, now able [...] From the hospital she was sent to [facility] for rehab. - Slowly improving, now able [...] From the hospital she was sent to [facility] for rehab. - Slowly improving: still remains [...] baclofen to help with muscle spasms/sleep at [facility]: switched to Robaxin 500 mg nightly PRN [...] From the hospital she was sent to [facility] for rehab. - Slowly improving: still remains [...] baclofen to help with muscle spasms/sleep at [facility]: switched to Robaxin 500 mg nightly PRN. [...] From the hospital she was sent to [facility] for rehab. - Encouraged patient to contact surgeon (Dr. Ortiz) to discuss next steps and to discuss prognosis. Diastolic dysfunction 07/17/2021 Overview (01/05/2024): - Echocardiogram 11/27/2023: LVEF 55-60% with grade II diastolic dysfunction. Assessment & Plan (08/12/2023 2:51 PM EDT): HFpEF (EF 55-60% in 08/2022) CAD/HI s/p Stent + CABG (1999) CVA (2017) [...] 12/05/2020, 01/28/2022, 01/09/2023 Influenza, seasonal, injectable 12/08/2018 [employer] COVID-19 Vaccine (Purple Cap) 12+ 03/30/2020, 03/30/2020, [...] 12/2023. Colon cancer: Last colonoscopy 10/17/2020 at [facility] (Dr. Sujit Christine), personally visualized records: [...] 12/05/2020, 01/28/2022, 01/09/2023 Influenza, seasonal, injectable 12/08/2018 [employer] COVID-19 Vaccine (Purple Cap) 12+ 03/30/2020, 03/30/2020, [...] ? Colon cancer: Last colonoscopy 10/17/2020 at [facility] (Dr. Sujit Christine), personally visualized records: [...] reasons: ? The patient has a prior HI or stroke diagnosis A1c: Lab Results Component [...] 12/05/2020, 12/05/2020, 01/28/2022 Influenza, seasonal, injectable 12/08/2018 [employer] COVID-19 Vaccine (Purple Cap) 12+ 03/30/2020, 03/30/2020, [...] ? Colon cancer: Last colonoscopy 10/17/2020 at [facility] (Dr. Sujit Christine), personally visualized records: [...] - Was switched to Trelegy inhaler at [facility], refilled today 07/2021. Continues on O2 at [...] as she is high risk for recurrent HI/stroke. Also on Zetia. Assessment & Plan (10/10/2021 [...] as she is high risk for recurrent HI/stroke. - Repeat lipid panel ordered 03/2021 (to [...] Paroxysmal atrial fibrillation 08/08/2017 Overview (04/16/2024): - [id number] of 6. - s/p PPM - Rate control: metoprolol ER 50 mg daily - Anticoagulation: warfarin - Follows with [facility] cardiology. Hypertension 12/26/2016 Overview (12/26/2022): - [...] patient to discuss insulin adjustments while at [facility]. 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 NSTEMI s/p balloon angioplasty 05/2020 at [facility]. Follows with outside small equipment operator. Assessment & Plan (11/24/2020 8:49 AM EDT): [...] been having telephone conversations with cardiology at [facility] and is currently taking 20mg lasix and [...] Was able to get patient in with [facility] ophthalmology right after our clinic appointment (where she follows regularly). - In the meantime, provided erythromycin eye ointment for bacterial conjunctivitis treatment. Assessment & Plan (05/13/2022 3:58 PM EST): - Concerning for bacterial or viral conjunctivitis vs. Scleritis. - Needs THOMPSON eye exam. - Was able to get patient in with [facility] ophthalmology right after our [...] bowel regimen. - Last colonoscopy performed at [facility] in Oct 2020 and unremarkable. Assessment & Plan (02/06/2022 2:48 PM EST): - Based on description more consistent with constipation. Some improvement with bowel regimen. - Last colonoscopy performed at [facility] in Oct 2020 and unremarkable. Anal [...] organization. Date Type Department Care Team Description 11/02/2024 Telephone [facility] Internal Medicine [address], [address] [place] [address] Alisa Kunz, DO HCN Lab/home Health 11/01/2024 Orders Only [facility] Internal Medicine [address], [address] [place] [address] Alisa Kunz L, DO 11/01/2024 Telephone [facility] Internal Medicine [address], [address] [place] [address] Alisa Kunz L, DO 10/27/2024 1:40 PM EDT Office Visit [facility] [address] [place] [address] Anne-Marie Kolb, FLORAL DESIGNER SALESPERSON Type 1 diabetes mellitus with other specified complication ([facility]) (Primary Dx); Neuropathy; Hyperlipidemia, unspecified hyperlipidemia type; Dyslipidemia 10/27/2024 Travel 10/18/2024 Refill [facility] Internal Medicine [address], [address] [place] [address] Alisa Kunz, DO 10/18/2024 Telephone [facility] Medicine [address], [address] [place] [address] Alisa Kunz L, DO 10/18/2024 Travel 10/14/2024 12:09 PM EDT - 10/14/2024 11:59 PM EDT Hospital Encounter [facility] [address], [address] [place] [address] Recurrent pleural effusion on left Discharge Disposition: Home or Self Care 10/14/2024 11:00 AM EDT Office Visit [facility] [address], [address] [place] [address] Cristian Zimmer MD Recurrent pleural effusion on left (Primary Dx); Chronic hypoxic respiratory failure; Obstructive lung disease ([facility]); Systemic lupus erythematosus (SLE) in adult ([facility]) 10/14/2024 Results Follow-Up [facility] Medicine Specialties [address], [address] [place] [address] Cristian Zimmer MD 10/14/2024 Travel 10/11/2024 Telephone [facility] Otolaryngology [address], [address] [place] [address] Chris Pepe MD HCN - Patient Message (questions) 10/07/2024 12:50 PM EDT Office Visit [facility] Otolaryng[facility] [address], [address] [place] [address] Chris Pepe MD Recurrent aphthous ulcer (Primary Dx); Systemic lupus erythematosus, unspecified SLE type, unspecified organ involvement status ([facility]) 10/07/2024 Travel 10/05/2024 Refill [facility] Internal Medicine [address], [address] [place] [address] Alisa Kunz, 10/02/2024 Travel 09/28/2024 Telephone [facility] Internal Medicine [address], [address] [place] [address] Alisa Kunz, DO HCN Lab/home Health 09/28/[address] [facility] [address] [place] [address] Anne-Marie Kolb, FLORAL DESIGNER SALESPERSON 09/28/2024 Results Follow-Up [facility] [address] [place] [address] Dinah Ramirez R, FLORAL DESIGNER SALESPERSON 09/27/2024 1:20 PM EDT Office Visit [facility] [address] [place] [address] Dinah Ramirez R, FLORAL DESIGNER SALESPERSON Pleural effusion (Primary Dx); Longstanding persistent atrial fibrillation (CMS/HCC); Dizziness and giddiness; Health care maintenance 09/27/2024 Travel 09/23/2024 Telephone [facility] Internal Medicine [address], [address] [place] [address] Alisa Kunz, DO HCN - Patient Message 09/22/2024 Patient Outreach POPULATION [address] [place], [address] [place] [address] Patricia Yañez LPN Follow-up 09/20/[address] [facility] [address] [place] [address] Anne-Marie Kolb, YAMILET 09/17/2024 Orders Only [facility] Internal Medicine [address], [address] [place] [address] Alisa Kunz, DO 09/17/2024 Patient Outreach POPULATION [facility] [address] [place] [address] [place], [address] [place] [address] Patricia Yañez LPN TCM Call 09/16/2024 Telephone [facility] Internal Medicine [address], [address] [place] [address] Alisa Kunz, DO 09/16/2024 Telephone [facility] Medicine [address], [address] [place] [address] Alisa Kunz, DO HCN Clinical Concern/Question (Low heartrate) 09/16/2024 Telephone [facility] [address] [place] [address] Charo Donaldson 09/16/[address] [facility] [address] [place] [address] Anne-Marie Kolb, FLORAL DESIGNER SALESPERSON Med Refill 09/15/2024 Travel 09/14/2024 Travel 09/13/2024 Travel 09/11/2024 Travel 09/09/2024 Travel 09/09/2024 Telephone [facility] Medicine Specialties [address], [address] [place] [address] Shannen Emmanuel RN 09/09/2024 Telephone [facility]ties [address] [facility], [address]nd [place] [address] Charo Donaldson 09/09/2024 Results Follow-Up [facility] Medicine [address] [facility], 3rd [place] [address] Zee Lazar DO 09/08/2024 1:55 PM EDT - 09/08/2024 11:59 PM EDT Hospital Encounter [facility] [address] [facility] [address] [place] [phone] Localized swelling, mass and lump, left upper limb Discharge Disposition: Home or Self Care 09/08/2024 1:36 PM EDT - 09/08/2024 1:54 PM EDT Hospital Encounter [facility] [address] [facility], 1st [place] [address] Shortness of breath Discharge Disposition: Home or Self Care 09/08/2024 11:20 AM EDT Office Visit [facility] Internal Medicine [address] [facility], [address]rd [place] [address] Alisa Kunz DO Shortness of breath (Primary Dx); Restless leg syndrome; Localized swelling, mass and lump, left upper limb; Sore throat; Encounter for removal of sutures 09/08/2024 Orders Only [facility] Medicine Specialties [address], [address] [place] [address] Lavern Shoemaker MD Pleural effusion on right (Primary Dx) 09/08/2024 Telephone [facility] Medicine [address] [facility], [address] [place] [address] Alisa Kunz DO HCN - Patient Message 09/08/2024 Travel 09/07/2024 Telephone [facility]ties [address], [address] [place] [address] Sadiq Osborne MBBS 09/07/2024 Telephone [facility]ties [address], [address]nd [place] [address] Charo Donaldson 09/06/2024 Telephone [facility] Medicine [address], [address]rd [place] [address] Nitin Kunzista L, DO 09/06/2024 Telephone [facility]ties [address], [address]nd [place] [address] Charo Donaldson 09/06/[address] [facility] [address] [place] [address] CortesCarlAnne-Marie L, FLORAL DESIGNER SALESPERSON Type 1 diabetes mellitus with other specified complication ([facility]/HCC); Dyslipidemia 09/06/[address] [facility] [address] [place] [address] CortesCarlAnne-Marie L, FLORAL DESIGNER SALESPERSON Type 1 diabetes mellitus with other specified complication ([facility]/HCC); Dyslipidemia 09/03/[address], [address] [place] [address] Ze Alisa L, DO HCN Clinical Concern/Question (Please see note...) 09/03/[address] [facility] [address] [place] [address] Cortes Anne-Marie L, FLORAL DESIGNER SALESPERSON 09/02/2024 Telephone [facility] [place] [address] [place] [address] Ze, Alisa L, DO 09/02/[address] [facility] [address] [place] [address] Cortes Anne-Marie L, FLORAL DESIGNER SALESPERSON 08/31/2024 Orders Only [facility] Medicine [address], [address]rd [place] [address] Alisa Kunz, DO At high risk for falls (Primary Dx); Type 2 diabetes mellitus without complication, with long-term current use of insulin; Compression fracture of T12 vertebra with routine healing, subsequent encounter; Osteoarthritis, unspecified osteoarthritis type, unspecified site; Pleural effusion 08/30/2024 Telephone [facility] Medicine [address], [address] [place] [address] Alisa Kunz, DO HCN Clinical Concern/Question 08/30/2024 Telephone [facility] Medicine [address], [address]rd [place] [address] Alisa Kunz, DO HCN Clinical Concern/Question 08/27/[address] [facility] [address] [place] [address] Katerine Dnoaldson 08/27/2024 Refill [facility] Specialties [address], [address] [place] [address] Ruthie Moy MD Systemic lupus erythematosus (SLE) in adult ([facility]) 08/27/2024 Telephone [facility] Specialties [address], [address] [place] [address] Sarah Hernadez RN 08/25/2024 Patient Outreach POP[facility]ATION HEALTH [address] [facility], [address] [place] [address] Patricia Yañez LPN TCM Call 08/25/2024 Telephone [facility] Medicine [address], [address]rd [place] [address] Alisa Kunz, DO HCN Clinical Concern/Question 08/25/2024 Telephone [facility] [address], [address] [place] [address] Noris Yee MD 08/25/2024 Refill [facility] Specialties [address], [address]nd [place] [address] Noris Yee MD Systemic lupus erythematosus (SLE) in adult ([facility]) 08/23/2024 Travel 08/22/2024 Travel 08/21/2024 Travel 08/20/2024 Travel 08/19/2024 Travel 08/18/2024 12:57 PM EDT - 08/18/2024 1:42 PM EDT Surgery Cardiac Hand Plate Stacker [address] [place] [address] Brenden Zamora MD Right heart catheterization 08/18/2024 Travel 08/17/2024 Travel 08/16/2024 Patient Outreach POPULATION HEALTH [address] [place] [address] Dalia Ekaterina Sarah Carson 08/15/2024 Travel 08/15/2024 [facility] Internal Medicine [address], [address] [place] [address] Alisa Kunz DO 08/14/2024 3:16 PM EDT - 08/24/2024 3:19 PM EDT Hospital Encounter [facility] [address] [place] [address] Jackson Puente MD Arndt, MD Flaca Theodore John B, MD Chadha, Jagriti, MD Pleural effusion (Primary Dx); Acute on chronic congestive heart failure, unspecified heart failure type ([facility]); Shortness of breath; Systemic lupus erythematosus (SLE) in adult ([facility]) Discharge Disposition: Home or Self Care 08/14/2024 Travel 08/12/2024 Telephone [facility] Medicine [address], [address]rd [place] [address] Alisa Kunz, DO HCN Clinical Concern/Question 08/11/2024 Telephone [facility] Medicine [address], [address] [place] [address] Alisa Kunz, DO HCN Clinical Concern/Question 08/09/2024 Telephone [facility] [place] [address] [facility], [address] [place] [address] Cassius Gonazles MD HCN Clinical Concern/Question 08/06/2024 Telephone [facility] Medicine Specialties [address], [address] [place] [address] Ami Marley Edema; Shortness of Breath 08/06/[address] [facility] [address] [place] [address] Anne-Marie Kolb, FLORAL DESIGNER SALESPERSON 08/06/2024 Telephone [facility] Medicine [address], [address] [place] [address] Alisa Kunz, DO HCN Clinical Concern/Question 08/06/2024 Telephone [facility] Internal Medicine [address], [address] [place] [address] Alisa Kunz, DO HCN Clinical Concern/Question 08/04/2024 2:20 PM EDT Office Visit [facility] [address] [place] [address] Anne-Marie Kolb, FLORAL DESIGNER SALESPERSON Type 1 diabetes mellitus with hyperglycemia (CMS/HCC) (Primary Dx); Neuropathy; Hyperlipidemia, unspecified hyperlipidemia type 08/04/2024 10:45 AM EDT Office Visit [facility] [place] [address] [facility], [address] [place] [address] Cassius Gonzales MD Heart failure with preserved ejection fraction, unspecified HF chronicity (CMS/HCC) (Primary Dx); Atrial fibrillation, unspecified type (CMS/HCC); Chronic hypoxic respiratory failure; Presence of cardiac pacemaker; Heart failure, unspecified HF chronicity, unspecified heart failure type (CMS/HCC); Pulmonary hypertension (CMS/HCC) 08/04/2024 Travel from Last 3 Months Immunizations Immunization Administration Dates Next Due Hep A, Adult 01/24/2019, 9,01/24/2019,01/23,01/23/2019,06/11/2018,06/11/2018 ,06/11/2018 Influenza, High-dose, Split Virus, Trivalent, Injectable, preservative free 11/27/2023,01/18/2019,12/19/2017 Influenza, Unspecified 12/09/2019 Influenza, high-dose, quadrivalent 01/09,01/28/2022,12/05/2020,12/05,12/05/2020,01/18/2019,01/18/2019 ,01/18/2019,01/18/2019,12/19/2017,12/08,12/19/2017 Influenza, seasonal, injectable 12/08/2018 [employer] COVID-19 Vac cine (Purple Cap) 12+ 04/22/2020,04/22/2020,03/30/2020,03/30 Pneumococcal Conjugate PCV 13 08/06/2019 ,08/06/2019,08/06/2019,07/02,07/02/2016,07/02/2016 Pneumococcal Polysaccharide PPV23 2019,06/11/2018,06/11/2018,06/11 Zoster, Recombinant 01/24/2019, 9,01/24/2019,01/23,01/23/2019,06/11/2018,06/11/2018 ,06/11/2018 Family History Medical History Relation Name Comments Alcohol abuse Father Doron Arriaza [facility] Arthritis Father Doron Arriaza Alfredito COPD Father Doron Arriaza Alfredito Hypercholesterolemia Father Doron Arriaza Alfredito Obesity Father Doron Arriaza [facility] Alpha-1 antitrypsin deficiency Mother m ildred stamper [...] Relation Name Status Comments Father Doron E [facility] Mother gracy stamper alfredito kelin Other 1 [...] Recorded Patient Health Questionnaire-2 Score 0 10/27/2024 [facility] [place] [facility] - Occupational Stress [...] drink first t anselmo in the morning (EYE-MOBILITY SCOOTER REPAIRER) to steady your nerves or to [...] Pulse 60 10/27/2024 2:01 PM EDT Temperature 36.7 C (98.1 F) 10/14/2024 10:59 AM EDT Respiratory Rate 20 10/14/2024 10:59 AM EDT Oxygen Saturation 95% 10/14/2024 10:59 AM EDT Inhaled Oxygen Concentration - - Weight 60.9 kg (134 lb 4.2 oz) 10/14/2024 10:59 AM EDT Height 162.6 cm (5' 4 ) 10/27/2024 2:01 PM EDT Body Mass Index 23.05 10/14/2024 10:59 AM EDT Plan of Treatment Upcoming Encounters Date Type Department Care Team (Late st Contact Info) Description 12/06/2024 11:20 AM EDT Office Visit [facility] Internal Medicine [address], [address]rd [place] [phone] Alisa Kunz, DO [address] [place] [address] 12/23/2024 4:00 PM EDT Office Visit [facility] Specialties [address], [address]nd [place] [address] Lavern Shoemaker MD [address] [place], [place] [id number] 02/02/2025 8:40 AM EST Office Visit [facility] Medicine [address], [address]rd [place] [address] Alisa Knuz, DO [address] [facility] [address] [place] [address] 02/09/2025 12:20 PM EST Office Visit [facility] [address] [place] [address] Anne-Marie Kolb L, FLORAL DESIGNER SALESPERSON [address] [place] [address] Health Maintenance Due Date Last Done Comments [facility]-/Child/Adol SDOH Screenings 1950 Diabetes: Dental Exam 1961 [facility]-DTaP,Tdap,and Td Vaccines (1 - Tdap) 1970 CT Colonography 02/09/1996 Colonoscopy 02/09/1996 FIT-DNA 02/09/1996 FIT 02/09/1996 FOBT 02/09/1996 Sigmoidoscopy 02/09/1996 [facility]-RSV Vaccine: 60+ Years or (1 - Risk 60-74 years 1-dose series) 2011 [id number] Vaccine (5 - season) 2023 04/22/2020, 04/22/2020, 03/30/2020, Additional history exists [facility]-Breast Cancer Screening 11/10/202304/2021, 11/09/2021, 01/25/2020, Additional history exists [facility]-Medicare Annual Wellness (AWV) 01/10/2024 01/09/2023, 04/03/2021, 09/06/2020 [facility]-Influenza Vaccine (#1) 11/08/202411/26, 01/09/2023, 01/28/2022, Additional history exists [facility]-Diabetes: Hemoglobin A1C 11/13/2024 08/14/2024, 05/24/2024, 04/26/2024, Additional history exists [facility]-Bone Density Scan 01/10/2025 01/10/2023 , 01/10/2023, 11/08/2020 [facility]- SDOH Screenings 03/16/2025 [facility]-Adult SDOH Screenings 03/16/2025 09/13/2024 [facility]-Colorectal Cancer Screening 10/17/2025 Postponed from 02/09/1996 (Other Medical Reasons) [facility]-Depression Screening 10/27/2025 025, 09/08/2024, 09/18/2022 [facility]-Hepatitis A Vaccines Aged Out 019, 01/24/2019, [...] this topic Medical Devices Implanted Type Area Security Threat Analyst Device Identifier Shelf Expiration Date Model / Serial / Lot Tendril Lead- 9 Implanted: by Naveen Velasquez (Quantity not on file) [facility] TENDRIL STS 8TC/46 / [id number] / Tendril Lead- 9 Implanted: by Naveen Velasquez (Quantity not on file) [facility] TENDRIL STS 8TC/52 / [id number] / Blank Pacemaker-6/1 09/2018 Implanted: by Naveen Velasquez (Quantity not on file) Pacemaker [facility] ASSURITY MRI 2272 / [id number] / Procedures Procedure Name Priority Date/Time Associated [...] Routine 09/11/2024 1:22 PM EDT Pleural effusion OR THORACENTESIS NEEDLE/CATH PLEURA W/IMAGING Routine 09/11/2024 1:22 PM EDT Pleural effusion BODY FLUID, CYTOSPIN, PATHOLOGIST INTERPRETATION Routine 09/11/2024 1:13 PM EDT BODY FLUID CELL COUNT W/ MANUAL DIFFERENTIAL Routine 09/11/2024 1:13 PM EDT NON-GYNECOLOGIC CYTOLOGY Routine 09/11/2024 1:12 PM EDT MISCELLANEOUS LAB TEST (SO) Pending Discharge 09/11/2024 1:12 PM EDT MISCELLANEOUS LAB TEST (SO) Pending Discharge 09/11/2024 1:12 PM EDT PH, PLEURAL FLUID [...] resultswithin the time period is included. Pathologist [facility] [place] Prothrombin Time 19.5(H) 12.0 - 14.3 sec LAB COAGULATION METHOD 09/27/2024 5:42 PM EDT [facility] INR 1.6(H) 0.9 - 1.1 LAB COAGULATION METHOD 09/27/2024 5:42 PM EDT [facility] Blood Venous blood specimen / Unknown Venipuncture / Unknown 09/27/2024 2:29 PM EDT 09/27/2024 2:29 PM EDT Narrative [facility] - 09/27/2024 5:42 PM EDT OPTIMAL INR RANGES FOR PATIENT ON ORAL ANTICOAGULANT THERAPY Prevention of venous thromboembolism INR 2.0 to 3.0 In patients with heart disease: Atrial fibrillation INR 2.0 to 3.0 Valvular heart disease INR 2.0 to 3.0 Tissue heart valves INR 2.0 to 3.0 Mechanical prosthetic valves INR 2.5 to 3.5 Prevention of recurrent HI INR 2.5 to 3.5 June R Ashley FLORAL DESIGNER SALESPERSON LAB BLOOD ORDERABLES Final Result [facility] [address] [place] [address] * (ABNORMAL) CBC and differential (09/27/2024 2:29 PM EDT) Only the most recent of4 resultswithin the time period is included. WBC Count 7.40 3.70 - 10.30 10*3/uL LAB HEMATOLOGY METHOD 09/27/2024 6:24 PM EDT [facility] RBC Count 3.48(L) 3.90 - 5.20 10*6/uL LAB HEMATOLOGY METHOD 09/27/2024 6:24 PM EDT [facility] HGB 10.5(L) 11.2 - 15.7 g/dL LAB HEMATOLOGY METHOD 09/27/2024 6:24 PM EDT [facility] HCT 34.1 34.0 - 45.0 % LAB HEMATOLOGY METHOD 09/27/2024 6:24 PM EDT [facility] Platelet Count 473(H) 155 - 369 10*3/uL LAB HEMATOLOGY METHOD 09/27/2024 6:24 PM EDT [facility] MCV 98 79 - 98 fL LAB HEMATOLOGY METHOD 09/27/2024 6:24 PM EDT [facility] MCH 30.2 26.0 - 32.0 pg LAB HEMATOLOGY METHOD 09/27/2024 6:24 PM EDT [facility] MCHC 30.8 30.7 - 35.5 g/dL LAB HEMATOLOGY METHOD 09/27/2024 6:24 PM EDT [facility] RDW 16.6(H) 11.5 - 14.5 % LAB HEMATOLOGY METHOD 09/27/2024 6:24 PM EDT [facility] MPV 9.8 8.8 - 12.5 fL LAB HEMATOLOGY METHOD 09/27/2024 6:24 PM EDT [facility] nRBC 0.0 <=0.0 per 100 WBCs LAB HEMATOLOGY METHOD 09/27/2024 6:24 PM EDT [facility] Differential Type Automated LAB HEMATOLOGY METHOD 09/27/2024 6:24 PM EDT [facility] Neutrophils % 72 % LAB HEMATOLOGY METHOD 09/27/2024 6:24 PM EDT [facility] Lymphocytes % 14 % LAB HEMATOLOGY METHOD 09/27/2024 6:24 PM EDT [facility] Monocytes % 11 % LAB HEMATOLOGY METHOD 09/27/2024 6:24 PM EDT [facility] Eosinophils % 1 % LAB HEMATOLOGY METHOD 09/27/2024 6:24 PM EDT [facility] Basophils % 1 % LAB HEMATOLOGY METHOD 09/27/2024 6:24 PM EDT [facility] Immature Granulocytes % 1 % LAB HEMATOLOGY METHOD 09/27/2024 6:24 PM EDT [facility] Neutrophils Absolute 5.39 1.60 - 6.10 10*3/uL LAB HEMATOLOGY METHOD 09/27/2024 6:24 PM EDT [facility] Lymphocytes Absolute 1.04(L) 1.20 - 3.90 10*3/uL LAB HEMATOLOGY METHOD 09/27/2024 6:24 PM EDT [facility] Monocytes Absolute 0.80 0.30 - 0.90 10*3/uL LAB HEMATOLOGY METHOD 09/27/2024 6:24 PM EDT [facility] Eosinophils Absolute 0.06 0.00 - 0.50 10*3/uL LAB HEMATOLOGY METHOD 09/27/2024 6:24 PM EDT [facility] Basophils Absolute 0.06 0.00 - 0.10 10*3/uL LAB HEMATOLOGY METHOD 09/27/2024 6:24 PM EDT [facility] Immature Granulocytes Absolute 0.05 0.00 - 0.06 10*3/uL LAB HEMATOLOGY METHOD 09/27/2024 6:24 PM EDT [facility] Blood Venous blood specimen / Unknown Venipuncture / Unknown 09/27/2024 2:29 PM EDT 09/27/2024 2:29 PM EDT Narrative [facility] - 09/27/2024 6:24 PM EDT Therapeutic decision making should be based on absolute values, rather than percentages. Fili Hutson MD LAB BLOOD ORDERABLES Final Result [facility] [address] [place] [address] * (ABNORMAL) Comprehensive metabolic panel (09/27/2024 2:29 PM EDT) Only the most recent of6 resultswithin the time period is included. Glucose, Plasma 191(H) 74 - 99 mg/dL 09/27/2024 5:45 PM EDT [facility] BUN, Plasma 23 8 - 23 mg/dL 09/27/2024 5:45 PM EDT [facility] Creatinine, Plasma 1.00 0.60 - 1.10 mg/dL 09/27/2024 5:45 PM EDT [facility] BUN/Creatinine Ratio 23 09/27/2024 5:45 PM EDT [facility] Sodium, Plasma 129(L) 136 - 145 mmol/L 09/27/2024 5:45 PM EDT [facility] Potassium, Plasma 4.2 3.6 - 4.9 mmol/L 09/27/2024 5:45 PM EDT [facility] Chloride, Plasma 88(L) 97 - 107 mmol/L 09/27/2024 5:45 PM EDT [facility] CO2, Plasma 31(H) 22 - 29 mmol/L 09/27/2024 5:45 PM EDT [facility] Anion Gap 10 6 - 16 mmol/L 09/27/2024 5:45 PM EDT [facility] Total Calcium, Plasma 9.0 8.9 - 10.2 mg/dL 09/27/2024 5:45 PM EDT [facility] Total Protein 7.3 6.3 - 7.9 g/dL 09/27/2024 5:45 PM EDT [facility] Albumin, Plasma 3.5 3.5 - 5.2 g/dL 09/27/2024 5:45 PM EDT [facility] AST, Plasma 39(H) 10 - 35 U/L 09/27/2024 5:45 PM EDT [facility] ALT, Plasma 26 10 - 35 U/L 09/27/2024 5:45 PM EDT [facility] Alkaline Phosphatase, Plasma 128 46 - 142 U/L 09/27/2024 5:45 PM EDT [facility] Total Bilirubin, Plasma 0.4 0.2 - 1.1 mg/dL 09/27/2024 5:45 PM EDT [facility] eGFRcr 59.6 mL/min/1.7 3m*2 09/27/2024 5:45 PM EDT [facility] Comment:Reported eGFRcr in m L/min/1.73m2 is based the CKD-EPI 2020 equation that does not use a race coefficient. Blood Venous blood specimen / Unknown Venipuncture / Unknown 09/27/2024 2:29 PM EDT 09/27/2024 2:29 PM EDT us Fili Hutson MD LAB BLOOD ORDERABLES Final Result [facility] [address] [place] [address] * (ABNORMAL) POCT glucose meter (09/15/2024 12:18 PM EDT) Only the most recent of91 resultswithin the time period is included. 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 Renetta Junior 09/15/2024 12:21 PM EDT [facility]ALTH[facility]ARE LAB Device ID [id number] 09/15/2024 12:21 PM EDT [facility]ALTH[facility] LAB Specimen Type POC Capillary 09/15/2024 12:21 PM EDT [facility] Blood Capillary blood specimen / Unknown 09/15/2024 12:18 PM EDT 09/15/2024 12:21 PM EDT Alex Mg MD LAB POINT OF CARE TE ST DOCKED DEVICE UNSOLICITED RESULTS Final Result Performing Organization Address City/State/[facility] Co de Phone Number HEALTHCARE LAB [address] [place] [address] * (ABNORMAL) MOON Single Pattern (Reflex only) (09/15/2024 9:21 AM EDT) [facility] MOON Pattern Homogeneou s(A) 09/20/2024 10:53 PM EDT [facility] ([facility]) MOON Titer 1:160(A) 09/20/2024 10:53 PM EDT [facility] ([facility]) Blood Venous blood specimen / Unknown Venipuncture / Unknown 09/15/2024 9:21 AM EDT 09/15/2024 9:39 AM EDT Narrative [facility] ([facility]) - 09/20/2024 10:53 PM EDT Performed By: [facility] [address] [place] [id number] Internal Audit Senior Manager: Austin Bernal MD, PhD CLIA Number: [id number] Fernando Valenzuela MD LAB BLOOD ORDERABLES Final Resu lt JERRI CARDO[place]) [place] [address] * (ABNORMAL) CBC W/O Differential (09/15/2024 9:21 AM EDT) Only the most recent of6 resultswithin the time period is included. WBC Count 5.81 3.70 - 10.30 10*3/uL LAB HEMATOLOGY METHOD 09/15/2024 9:42 AM EDT [facility] RBC Count 3.68(L) 3.90 - 5.20 10*6/uL LAB HEMATOLOGY METHOD 09/15/2024 9:42 AM EDT [facility] HGB 10.8(L) 11.2 - 15.7 g/dL LAB HEMATOLOGY METHOD 09/15/2024 9:42 AM EDT [facility] HCT 34.3 34.0 - 45.0 % LAB HEMATOLOGY METHOD 09/15/2024 9:42 AM EDT [facility] Platelet Count 334 155 - 369 10*3/uL LAB HEMATOLOGY METHOD 09/15/2024 9:42 AM EDT [facility] MCV 93 79 - 98 fL LAB HEMATOLOGY METHOD 09/15/2024 9:42 AM EDT [facility] MCH 29.3 26.0 - 32.0 pg LAB HEMATOLOGY METHOD 09/15/2024 9:42 AM EDT [facility] MCHC 31.5 30.7 - 35.5 g/dL LAB HEMATOLOGY METHOD 09/15/2024 9:42 AM EDT [facility] RDW 15.2(H) 11.5 - 14.5 % LAB HEMATOLOGY METHOD 09/15/2024 9:42 AM EDT [facility] MPV 9.0 8.8 - 12.5 fL LAB HEMATOLOGY METHOD 09/15/2024 9:42 AM EDT [facility] nRBC 0.0 <=0.0 per 100 WBCs LAB HEMATOLOGY METHOD 09/15/2024 9:42 AM EDT [facility] Blood Venous blood specimen / Unknown Venipuncture / Unknown 09/15/2024 9:21 AM EDT 09/15/2024 9:39 AM EDT us Alex Mg MD LAB BLOOD ORDERABLES Final R esult [facility] [address] [place] [address] * (ABNORMAL) Antinuclear Antibody (MOON) with HEp-2 Substrate, IgG by IFA (09/15/2024 9:21 AM EDT) MOON INTERPRETIVE COMMENT See Note 09/20/2024 10:53 PM EDT [facility] ([facility]) Anti Nuc Ab Screen Detected( H) <1:80 09/20/2024 10:53 PM EDT [facility] ([facility]) Blood Venous blood specimen / Unknown Venipuncture / Unknown 09/15/2024 9:21 AM EDT 09/15/2024 9:39 AM EDT Narrative [facility] ([facility]) - 09/20/2024 10:53 PM EDT Homogeneous Pattern [...] not necessarily rule out SARD. Performed By: [facility] [address] [place] [address] Internal Audit Senior Manager: Austin Bernal MD, PhD CLIA Number: [id number] Fernando Valenzuela MD LAB BLOOD ORDERABLES Final Resu lt [facility] ([facility]) [address] [place] [address] * (ABNORMAL) Magnesium, Plasma (09/15/2024 9:21 AM EDT) Only the most recent of12 resultswithin the time period is included. Magnesium, Plasma 1.7(L) 1.9 - 2.4 mg/dL 09/15/2024 10:03 AM EDT [facility]ALTHCARE LAB Blood Venous blood specimen / Unknown Venipuncture / Unknown 09/15/2024 9:21 AM EDT 09/15/2024 9:39 AM EDT Fernando Valenzuela MD LAB BLOOD ORDERABLES Final Resu lt [facility] [address] [place] [address] * (ABNORMAL) Lactate dehydrogenase (09/15/2024 9:21 AM EDT) Only the most recent of2 resultswithin the time period is included. LDH, Plasma 396(H) 116 - 250 U/L 09/15/2024 10:03 AM EDT [facility] Blood Venous blood specimen / Unknown Venipuncture / Unknown 09/15/2024 9:21 AM EDT 09/15/2024 9:39 AM EDT Alex Mg MD LAB BLOOD ORDERABLES Final R esult [facility] [address] [place] [address] * (ABNORMAL) Basic Metabolic Panel, Plasma (09/15/2024 9:21 AM EDT) Only the most recent of15 resultswithin the time period is included. Glucose, Plasma 206(H) 74 - 99 mg/dL 09/15/2024 10:03 AM EDT [facility] BUN, Plasma 16 8 - 23 mg/dL 09/15/2024 10:03 AM EDT [facility] Creatinine, Plasma 0.89 0.60 - 1.10 mg/dL 09/15/2024 10:03 AM EDT [facility] BUN/Creatinine Ratio 18 09/15/2024 10:03 AM EDT [facility] Sodium, Plasma 129(L) 136 - 145 mmol/L 09/15/2024 10:03 AM EDT [facility] Potassium, Plasma 4.4 3.6 - 4.9 mmol/L 09/15/2024 10:03 AM EDT [facility] Chloride, Plasma 90(L) 97 - 107 mmol/L 09/15/2024 10:03 AM EDT [facility] CO2, Plasma 29 22 - 29 mmol/L 09/15/2024 10:03 AM EDT [facility] Anion Gap 10 6 - 16 mmol/L 09/15/2024 10:03 AM EDT [facility] Total Calcium, Plasma 8.6(L) 8.9 - 10.2 mg/dL 09/15/2024 10:03 AM EDT [facility] eGFRcr 68.6 mL/min/1.7 3m*2 09/15/2024 10:03 AM EDT [facility] Comment:Reported eGFRcr in m L/min/1.73m2 is based the CKD-EPI 2020 equation that does not use a race coefficient. Blood Venous blood specimen / Unknown Venipuncture / Unknown 09/15/2024 9:21 AM EDT 09/15/2024 9:39 AM EDT us Fernando Valenzuela MD LAB BLOOD ORDERABLES Final Resu lt [facility] [address] [place] [id number] * MR Hand Left w and wo [...] multiecho sequences were obtained utilizing T1 and D9oscgtjums with and without the administration of intravenous [...] by Alex Metz on 09/14/2024 3:19 PM us Hirotaka Nicolas MD IMG MRI PROCEDURES Final Result * [...] PM EDT 09/13/2024 9:32 PM EDT Pallavi Humberto DO LAB BLOOD ORDERABLES Final Resu lt [facility] [address] [place] [id number] * ECHO, ADULT TRANSTHORACIC LIMITED W/ CONTRAST [...] of2 resultswithin the time period is included. [facility] CRP, Plasma 26.0(H) <=8.0 mg/L 09/13/2024 11:21 AM EDT [facility] Blood Venous blood specimen / Unknown Venipuncture / Unknown 09/13/2024 10:00 AM EDT 09/13/2024 10:25 AM EDT Narrative [facility] - 09/13/2024 11:21 AM EDT This CRP test is appropriate for assessment of infection, systemic inflammation and/or tissue injury. To assess cardiovascular disease risk order high sensitivity CRP (CRPH). Pallavi Paul DO LAB BLOOD ORDERABLES Final Resu lt [facility] [address] [place] [address] * (ABNORMAL) Herpes Simplex Virus (HSV) by PCR (09/12/2024 3:52 PM EDT) [facility] Herpes Simplex Virus 1 (HSV-1) PCR Result Detected(A) Not Detected 09/13/2024 11:46 AM EDT [facility] Herpes Simplex Virus 2 (HSV-2) PCR Result Not Detected Not Detected 09/13/2024 11:46 AM EDT [facility] Swab Oral cavity structure / Unknown Non-blood Collection / Unknown 09/12/2024 3:52 PM EDT 09/12/2024 3:56 PM EDT Narrative [facility] - 09/13/2024 11:46 AM EDT [...] Valenzuela MD LAB MICROBIOLOGY - GENERAL ORDE [facility] Final Result Performing Organization Address City/[facility]/ZIP Co de Phone Number [facility] [address] [place] [address] * Quantiferon TB Gold (09/12/2024 3:50 PM EDT) Pathologist [facility] [place] Quantiferon TB Gold Plus Result Negative Negative 09/13/2024 5:06 PM EDT [facility] TB Nill Value 0.120 IU/mL 09/13/2024 5:06 PM EDT [facility] TB Antigen 1 -0.0285 IU/mL 09/13/2024 5:06 PM EDT [facility] TB Antigen 2 -0.024 IU/mL 09/13/2024 5:06 PM EDT [facility] TB Mitogen 3.39 IU/mL 09/13/2024 5:06 PM EDT [facility] Blood Venous blood specimen / Unknown Venipuncture / Unknown 09/12/2024 3:50 PM EDT 09/12/2024 3:56 PM EDT Narrative [facility] - 09/13/2024 5:06 PM EDT Responses to the Mitogen positive control and occasionally to TB antigen can be above the assay range. For calculation purposes: IFN-gamma values > 10 IU/mL are handled as 10 IU/mL. us Pallavi Paul DO LAB BLOOD ORDERABLES Final Resu lt Performing Organization Address City/[facility]/ZIP Co de Phone Number [facility] [address] [place] [address] * Gold Top (09/12/2024 2:43 PM EDT) Pathologist [facility] [place] Extra Hold for add-ons 09/12/2024 6:01 PM EDT [facility] Comment:Auto resulted. Blood Venous blood specimen / Unknown Venipuncture / Unknown 09/12/2024 2:43 PM EDT 09/12/2024 3:16 PM EDT us Fernando Valenzuela MD LAB BLOOD ORDERABLES Final Resu lt Performing Organization Address [facility]/ZIP Co de Phone Number [facility] [address] [place] [address] * Proctor Top (09/12/2024 2:43 PM EDT) Extra Hold for add-ons 09/12/2024 6:01 PM EDT [facility] Comment:Auto resulted. Blood Venous blood specimen / Unknown Venipuncture / Unknown 09/12/2024 2:43 PM EDT 09/12/2024 3:16 PM EDT us Fernando Valenzuela MD LAB BLOOD ORDERABLES Final Resu lt Performing Organization Address [facility] Co de Phone Number [facility]CARE [facility] [address] [place] [address] * Lavender Top (09/12/2024 2:43 PM EDT) Only the most recent of3 resultswithin the time period is included. Extra Hold for add-ons 09/12/2024 6:01 PM EDT [facility] Comment:Auto resulted. Blood Venous blood specimen / Unknown Venipuncture / Unknown 09/12/2024 2:43 PM EDT 09/12/2024 3:16 PM EDT us Fernando Valenzuela MD LAB BLOOD ORDERABLES Final Resu lt Performing Organization Address [facility] Co de Phone Number [facility] [address] [place] [address] * Light Green Top (09/12/2024 2:43 PM EDT) Extra Hold for add-ons 09/12/2024 6:01 PM EDT [facility] Comment:Auto resulted. Blood Venous blood specimen / Unknown Venipuncture / Unknown 09/12/2024 2:43 PM EDT 09/12/2024 3:16 PM EDT us Fernando Valenzuela MD LAB BLOOD ORDERABLES Final Resu lt Performing Organization Address City/[facility]/ZIP Co de Phone Number [facility] [address] [place] [address] * Blood Culture (Aerobic/Anaerobet Set) (09/11/2024 5:55 PM EDT) Culture No growth at day 5 09/16/2024 8:01 PM EDT [facility] Blood Venous blood specimen / Unknown Venipuncture / Unknown 09/11/2024 5:55 PM EDT 09/11/2024 6:35 PM EDT us Fernando Valenzuela MD LAB MICROBIOLOGY - GENERAL ORDE LAWANDA Final Result Performing Organization Address [facility] Co de Phone Number [facility] [address] [place] [address] * Fungal Culture, Sterile Body Fluid (NOT CSF) and JAS (09/11/2024 3:35 PM EDT) Culture No Fungal Growth at 3 Weeks 10/12/2024 6:39 AM EDT [facility] JAS No fungal elements seen 10/12/2024 6:39 AM EDT [facility] Pleural Fluid Specimen from pleura obtained by thoracentesis / Unknown Non-blood Collection / Unknown 09/11/2024 3:35 PM EDT 09/11/2024 3:35 PM EDT us Fernando Valenzuela MD LAB MICROBIOLOGY - GENERAL ORDSofiya WEBBER Final Result Performing Organization Address [facility]/ZIP Co de Phone Number [facility] [address] [place] [address] * AFB Culture and Acid Fast Stain - Pleural Right (09/11/2024 3:35 PM EDT) Only the most recent of2 resultswithin the time period is included. AFB Culture No Mycobacterial Growth at 6 Weeks 10/25/2024 4:55 AM EDT [facility] Acid Fast Stain No acid fast bacilli seen 10/25/2024 4:55 AM EDT [facility] Pleural Fluid Specimen from pleura obtained by thoracentesis / Unknown Non-blood Collection / Unknown 09/11/2024 3:35 PM EDT 09/11/2024 3:35 PM EDT Fernando Valenzuela MD LAB MICROBIOLOGY - GENERAL ORDE RABSHERI Final Result Performing Organization Address City/[facility]/ZIP Co de Phone Number [facility] [address] [place] [address] * Body Fluid Culture and Gram Stain (09/11/2024 3:35 PM EDT) Only the most recent of2 resultswithin the time period is included. Culture No growth at day 4 2024 11:19 AM EDT [facility] Gram Stain Result Moderate Polymorphonuclear leukocytes 09/14/2024 11:19 AM EDT [facility] Gram Stain Result No organisms seen 09/14/2024 11:19 AM EDT [facility] Pleural Fluid Specimen from pleura obtained by thoracentesis / Unknown Non-blood Collection / Unknown 09/11/2024 3:35 PM EDT 09/11/2024 3:35 PM EDT Fernando Valenzuela MD LAB MICROBIOLOGY - GENERAL ORDE LAWANDA Final Result Performing Organization Address City/[facility]/ZIP Co de Phone Number [facility] [address] [place] [address] * XR Chest 1 View (09/11/2024 1:45 [...] IMG XR PROCEDURES Final Res ult * OR THORACENTESIS NEEDLE/CATH PLEURA W/IMAGING, HC THORACENTESIS NEEDLE/CATH [...] infection and pneumothorax Alternatives discussed: No treatment [place] protocol: Procedure explained and questions answered to [...] midscapular line Intercostal space: 6th Puncture method: [id number] catheter Ultrasound guidance: yes Indwelling catheter: Removed [...] LAB HEMATOLOGY METHOD 09/11/2024 2:07 PM EDT [facility] Appearance, Body fluid Cloudy(A) LAB HEMATOLOGY METHOD 09/11/2024 2:07 PM EDT [facility] Volume, Body fluid 5.0 cc LAB HEMATOLOGY METHOD 09/11/2024 2:07 PM EDT [facility] Fluid Container Tube 3 LAB HEMATOLOGY METHOD 09/11/2024 2:07 PM EDT [facility] Red Blood Cell Count, Body fluid 1,959 uL LAB HEMATOLOGY METHOD 09/11/2024 2:07 PM EDT [facility] Comment:Test performed by nika wills. Total Nucleated Cell Count, Body fluid 243 uL LAB HEMATOLOGY METHOD 09/11/2024 2:07 PM EDT [facility] Neutrophils %, Body fluid 20 % LAB HEMATOLOGY METHOD 09/11/2024 2:07 PM EDT [facility] Lymphocytes %, Body fluid 53 % LAB HEMATOLOGY METHOD 09/11/2024 2:07 PM EDT [facility] Monocytes/Macro phages %, Body fluid 23 % LAB HEMATOLOGY METHOD 09/11/2024 2:07 PM EDT [facility] Eosinophils %, Body fluid 0 % LAB HEMATOLOGY METHOD 09/11/2024 2:07 PM EDT [facility] Lining/Mesothel ial Cells %, Body fluid 4 % LAB HEMATOLOGY METHOD 09/11/2024 2:07 PM EDT [facility] Neutrophils Absolute (PMN), Body fluid 49 uL LAB HEMATOLOGY METHOD 09/11/2024 2:07 PM EDT [facility] Lymphocytes Absolute, Body fluid 129 uL LAB HEMATOLOGY METHOD 09/11/2024 2:07 PM EDT [facility] Monocytes/Macro phages Absolute, Body fluid 56 uL LAB HEMATOLOGY METHOD 09/11/2024 2:07 PM EDT [facility] Eosinophils Absolute, Body fluid 0 uL LAB HEMATOLOGY METHOD 09/11/2024 2:07 PM EDT [facility] Basophils Absolute, Body fluid 0 uL LAB HEMATOLOGY METHOD 09/11/2024 2:07 PM EDT [facility] Lining/Mesothel ial Cells Absolute, Body fluid 10 uL LAB HEMATOLOGY METHOD 09/11/2024 2:07 PM EDT [facility] Comment, Body fluid None LAB HEMATOLOGY METHOD 09/11/2024 2:07 PM EDT [facility] Comment:This is an appended report. These results have been appended to a previously preliminary verified report. Basophils %, Body fluid 0 % LAB HEMATOLOGY METHOD 09/11/2024 2:07 PM EDT [facility] Body Fluid Structure of right pleural cavity / Unknown Non-blood Collection / Unknown 09/11/2024 1:13 PM EDT 09/11/2024 1:25 PM EDT Júnior Johnson DO LAB BODY FLUIDS AND STOOLS ORDERABLES NO SPECIMEN TYPE/SOURCE Final Result Performing Organization Address City/State/[facility] Co de Phone Number [facility] [address] [place] [id number] * Body fluid, cytospin, pathologist interpretation (09/11/2024 1:13 PM EDT) Only the most recent of2 resultswithin the time period is included. Specimen Type Body Fluid LAB HEMATOLOGY METHOD 09/13/2024 11:14 AM EDT [facility] Specimen Source, Body Fluid Pleural, Right LAB HEMATOLOGY METHOD 09/13/2024 11:14 AM EDT [facility] Clinical Diagnosis, Body Fluid Pleural effusion LAB HEMATOLOGY METHOD 09/13/2024 11:14 AM EDT [facility] Interpretation , Body Fluid Mixed inflammatory cells, no malignancy identified 09/13/2024 11:14 AM EDT [facility] Pathologist Signature, Body Fluid 09/13/2024 11:14 AM EDT [facility] Comment:Reviewed by: Simona Long MD LAB CP ASR DISCLAIMER No 09/13/2024 11:14 AM EDT [facility] Body Fluid Structure of right pleural cavity / Unknown Non-blood Collection / Unknown 09/11/2024 1:13 PM EDT 09/11/2024 1:25 PM EDT Júnior Johnson DO LAB BODY FLUIDS AND STOOLS ORDERABLES Final Result Performing Organization Address [facility] Co de Phone Number [facility] [address] [place] [address] * Total Protein, Pleural Fluid - Pleural Right (09/11/2024 1:12 PM EDT) Only the most recent of2 resultswithin the time period is included. Total Protein, Fluid 2.4 g/dL 09/11/2024 6:20 PM EDT [facility] Pleural Fluid Structure of right pleural cavity / Unknown Non-blood Collection / Unknown 09/11/2024 1:12 PM EDT 09/11/2024 1:24 PM EDT Narrative [facility] - 09/11/2024 6:20 PM EDT This test was developed and its performance characteristics determined by [facility]. The U.S. Food and Drug Administration has not approved or cleared this test. However, FDA clearance or approval is not currently required for clinical use. The results are not intended to be used as the sole means for clinical diagnosis or patient management decisions. us Fernando Valenzuela MD LAB BODY FLUIDS AND STOOLS LISETHE LAWANDA Final Result Performing Organization Address [facility] Co de Phone Number [facility] [address] [place] [address] * Lactate Dehydrogenase, Pleural Fluid - Right (09/11/2024 1:12 PM EDT) Only the most recent of2 resultswithin the time period is included. LDH, Fluid 166 U/L 09/11/2024 6:20 PM EDT [facility] Pleural Fluid Structure of right pleural cavity / Unknown Non-blood Collection / Unknown 09/11/2024 1:12 PM EDT 09/11/2024 1:24 PM EDT Narrative [facility] - 09/11/2024 6:20 PM EDT [...] the following criteria are present: (1) pleural spsvj-sw-ekrgj protein ratio of >0.5, (2) pleural ychjl-de-ttpkm LDH ratio of >0.6, or (3) a pleural fluid LDH activity that is >2/3 the upper limit of a normal serum LDH activity. Light's criteria may misclassify ~25% of transudates as exudates in heart failure. These can be identified by calculating a qwrxl-lk-kocanen albumin gradient (>1.2 g/dL) and/or a twnor-qh-rypzy protein gradient (>3.1 g/dL). 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 Test name complement C4 component in pleural fluid - [facility] 10/29/2024 4:04 PM EDT [facility] Test Result SEE SCANNED REPORT 10/29/2024 4:[address] [facility] See Scanned Result SEE SCANNED REPORT 10/29/2024 4:[address] [facility] Body Fluid Non-blood Collection / Unknown 09/11/2024 1:12 PM EDT 09/12/2024 3:47 PM EDT Fernando Valenzuela MD LAB REF LAB BLOOD AND FLUID ORD Final Result Performing Organization Address [facility] Co de Phone Number [facility] [address] [place] [address] * Albumin - Pleural Right (09/11/2024 1:12 PM EDT) Only the most recent of3 resultswithin the time period is included. Albumin, Pleural Fluid 1.2 g/dL 09/11/2024 6:19 PM EDT [facility] Pleural Fluid Structure of right pleural cavity / Unknown Non-blood Collection / Unknown 09/11/2024 1:12 PM EDT 09/11/2024 1:24 PM EDT Narrative [facility] - 09/11/2024 6:19 PM EDT REPORTING RESULTS Reference Values: No established reference interval. Results should be interpreted in comparison to the concentration in blood and in conjunction with the clinical context. This test was developed and its performance characteristics determined by [facility]. The U.S. Food and Drug Administration has not approved or cleared this test; however, FDA clearance or approval is not currently required for clinical use. The results are not intended to be used as the sole means for clinical diagnosis or patient management decisions. Júnior Johnson DO LAB BODY FLUIDS AND STOOLS ORDERABLES Final Result Performing Organization Address [facility] Co de Phone Number [facility] [address] [place] [address] * (ABNORMAL) pH, pleural fluid (09/11/2024 1:12 PM EDT) Only the most recent of2 resultswithin the time period is included. pH, Pleural Fluid 7.50(L) 7.60 - 7.66 LAB HEMATOLOGY METHOD 09/11/2024 1:30 PM EDT [facility] Pleural Fluid Pleural fluid specimen / Unknown Non-blood Collection / Unknown 09/11/2024 1:12 PM EDT 09/11/2024 1:22 PM EDT Narrative [facility] - 09/11/2024 1:30 PM EDT Normal [...] and its performance characteristics determined by the [facility]. Pleural pH is measured [...] STOOLS ORDERABLES Final Result Performing Organization Address City/State/[facility] Co de Phone Number [facility] [address] [place] [address] * Cytology - Pleural Right (09/11/2024 1:12 PM EDT) Only the most recent of2 resultswithin the time period is included. Case Report Cytology Case: [id number] Authorizing Provider: Fernando Valenzuela MD Collected: 09/11/2024 1312 Ordering Location: [facility] Inpatient Received: 09/13/2024 0937 Pathologist: Nelsy Robles MD Specimen: Pleural Fluid, Right, RIGHT PLEURAL FLUID 09/14/2024 11:40 AM EDT [facility] Final Diagnosis A. RIGHT PLEURAL FLUID - NO EVIDENCE OF MALIGNANCY - FEW MIXED INFLAMMATORY CELLS 09/14/2024 11:40 AM EDT [facility] at 1140 EDT Clinical History Pleural effusion 09/14/2024 11:40 AM EDT [facility] Previous Cancer Primary Site Other/Unknown Primary Site 09/14/2024 11:40 AM EDT [facility] Gross Description A. RIGHT PLEURAL FLUID 1000 ml's tinted, cloudy fluid processed as thin prep and cell block Cold Time: 45h 47m 09/14/2024 11:40 AM EDT [facility] Fluid Structure of right pleural cavity / Unknown 09/11/2024 1:12 PM EDT 09/13/2024 9:37 AM EDT us Fernando Valenzuela MD LAB CYTOLOGY ORDERABLES Final R esult [facility] [address] [place] [address] * Immunoglobulin G Subclasses (1, 2, 3, 4) (SO) (09/11/2024 9:24 AM EDT) IMMUNOGLOBULIN G SUBCLASS 1 1068 240 - 1118 mg/dL 09/14/2024 1:49 AM EDT [facility] ([facility]) IMMUNOGLOBULIN G SUBCLASS 2 316 124 - 549 mg/dL 09/14/2024 1:49 AM EDT [facility] ([facility]) IMMUNOGLOBULIN G SUBCLASS 3 91 21 - 134 mg/dL 09/14/2024 1:49 AM EDT [facility] ([facility]) IMMUNOGLOBULIN G SUBCLASS 4 22 1 - 123 mg/dL 09/14/2024 1:49 AM EDT [facility] ([facility]) Blood Venous blood specimen / Unknown Venipuncture / Unknown 09/11/2024 9:24 AM EDT 09/11/2024 9:30 AM EDT Narrative [facility] ([facility]) - 09/14/2024 1:49 AM EDT REFERENCE INTERVAL: Immunoglobulin G Subclass 1 The total IgG (mg/dL) can be derived from the sum of the subclass IgG1, IgG2, IgG3, and IgG4 values. However, a confirmatory and more precise total IgG is available by the turbidimetric method of quantitation for total IgG. Refer to test Immunoglobulin G, Serum ([id number]). Access complete set of age- and/or gender-specific reference intervals for this test in the [facility] Test Directory (artandseek). REFERENCE INTERVAL: Immunoglobulin G Subclass 2 Access complete set of age- and/or gender-specific reference intervals for this test in the [facility] Test Directory (artandseek). REFERENCE INTERVAL: Immunoglobulin G Subclass 3 Access complete set of age- and/or gender-specific reference intervals for this test in the [employer] Test Directory (artandseek). REFERENCE INTERVAL: Immunoglobulin G Subclass 4 Access complete set of age- and/or gender-specific reference intervals for this test in the [employer] Test Directory (artandseek). Performed By: [facility] [address] [place] [address] Internal Audit Senior Manager: Austin Bernal MD, PhD CLIA Number: [id number] Fernando Valenzuela MD LAB REF LAB BLOOD AND FLUID ORD Final Result [facility] [address] [place] [id number] * ANCA Vasculitis Profile (09/11/2024 9:24 AM EDT) Myeloperoxidase (MPO) Ab, IgG 3 0 - 19 AU/mL 09/14/2024 3:07 PM EDT [facility] ([facility]) Serine Proteinase 3 (PR3) Ab, IgG 4 0 - 19 AU/mL 09/14/2024 3:07 PM EDT [facility] ([facility]) ANCA IFA Titer <1:20 <1:20 09/14/2024 3:07 PM EDT [facility] ([facility]) ANCA IFA Pattern None Detected None Detected 09/14/2024 3:07 PM EDT [facility] ([facility]) Blood Venous blood specimen / Unknown Venipuncture / Unknown 09/11/2024 9:24 AM EDT 09/11/2024 9:30 AM EDT Narrative [facility]) - 09/14/2024 3:07 PM EDT [...] collagen vascular disease or arthritis. Performed By: [facility] [address] [place] [address] Internal Audit Senior Manager: Austin Bernal MD, PhD CLIA Number: [id number] Fernando Valenzuela MD LAB BLOOD ORDERABLES Final Resu lt [facility] ([facility]) [address] [place] [address] * Urinalysis Microscopic Examination (09/10/2024 1:16 PM EDT) Urine Urine specimen obtained by clean catch procedure / Unknown Non-blood Collection / Unknown 09/10/2024 1:16 PM EDT 09/10/2024 1:21 PM EDT Fernando Valenzuela MD LAB URINE ORDERABLES Final Resu lt [facility] [address] [place] [address] * Protein, Random, Urine with Creatinine (09/10/2024 1:16 PM EDT) Protein, Urine 26 mg/dL 09/10/2024 1:42 PM EDT [facility] Creatinine, Urine 12 mg/dL 09/10/2024 1:42 PM EDT [facility] Protein/Creati nine Ratio 2.2 mg/mg Creat 09/10/2024 1:42 PM EDT [facility] Urine Urine specimen obtained by clean catch procedure / Unknown Non-blood Collection / Unknown 09/10/2024 1:16 PM EDT 09/10/2024 1:21 PM EDT us Fernando Valenzuela MD LAB URINE ORDERABLES Final Resu lt [facility] [address] [place] [address] * (ABNORMAL) Urinalysis with reflex microscopic (Culture NOT Included) (09/10/2024 1:16 PM EDT) Color, Urine Yellow LAB URINALYSIS - AUTOMATED METHOD 09/10/2024 1:38 PM EDT [facility] Clarity, Urine Clear LAB URINALYSIS - AUTOMATED METHOD 09/10/2024 1:38 PM EDT [facility] Spec [place], Urine 1.009 1.005 - 1.030 LAB URINALYSIS - AUTOMATED METHOD 09/10/2024 1:38 PM EDT [facility] pH, Urine 6.0 5.0 - 8.0 LAB URINALYSIS - AUTOMATED METHOD 09/10/2024 1:38 PM EDT [facility] Protein, Urine 30(A) Negative mg/dL LAB URINALYSIS - AUTOMATED METHOD 09/10/2024 1:38 PM EDT [facility] Glucose, Urine 250(A) Negative mg/dL LAB URINALYSIS - AUTOMATED METHOD 09/10/2024 1:38 PM EDT [facility] Ketones, Urine Negative Negative mg/dL LAB URINALYSIS - AUTOMATED METHOD 09/10/2024 1:38 PM EDT [facility] Blood, Urine Small(A) Negative LAB URINALYSIS - AUTOMATED METHOD 09/10/2024 1:38 PM EDT [facility] Bilirubin, Urine Negative Negative LAB URINALYSIS - AUTOMATED METHOD 09/10/2024 1:38 PM EDT [facility] Urobilinogen, Urine 0.2 0.2 to 1.0 mg/dL LAB URINALYSIS - AUTOMATED METHOD 09/10/2024 1:38 PM EDT [facility] Leukocytes, Urine Trace(A) Negative LAB URINALYSIS - AUTOMATED METHOD 09/10/2024 1:38 PM EDT [facility] Nitrite, Urine Negative Negative LAB URINALYSIS - AUTOMATED METHOD 09/10/2024 1:38 PM EDT [facility] RBC, Urine 3 0 to 3 /HPF 09/10/2024 1:38 PM EDT [facility] Comment:This result was prev iously suppressed from the chart. WBC, Urine 0 - 5 0 to 5 /HPF 09/10/2024 1:38 PM EDT [facility] Comment:This result was prev iously suppressed from the chart. Squamous Epithelial Cells 0 - 2 0 to 5 /HPF 09/10/2024 1:38 PM EDT [facility] Comment:This result was prev iously suppressed from the chart. Hyaline Casts 0 - 2 0 to 5 /LPF 09/10/2024 1:38 PM EDT [facility] Comment:This result was prev iously suppressed from the chart. Bacteria, Urine Negative Negative 09/10/2024 1:38 PM EDT [facility] Comment:This result was prev iously suppressed from the chart. Urine Urine specimen obtained by clean catch procedure / Unknown Non-blood Collection / Unknown 09/10/2024 1:16 PM EDT 09/10/2024 1:21 PM EDT Narrative [facility] - 09/10/2024 1:38 PM EDT Performed by manual method us Fernando Valenzuela MD LAB URINE ORDERABLES Final Resu lt [facility] [address] [place] [address] * (ABNORMAL) IG Profile (09/10/2024 3:24 AM EDT) IGA 137 75 - 400 mg/dL 09/11/2024 12:02 AM EDT [facility] IGG 1,777(H) 720 - 1,589 mg/dL 09/11/2024 12:02 AM EDT [facility] IGM 89 35 - 225 mg/dL 09/11/2024 12:02 AM EDT [facility] Blood Venous blood specimen / Unknown Venipuncture / Unknown 09/10/2024 3:24 AM EDT 09/10/2024 3:42 AM EDT us Pallavi Paul DO LAB BLOOD ORDERABLES Final Resu lt [facility] [address] [place] [address] * Anti-DNA antibody, double-stranded (09/10/2024 3:24 AM EDT) Pathologist [facility] Double-Strande d DNA (dsDNA) Ab IgG IFA <1:10 <1:10 09/14/2024 3:49 PM EDT [facility] ([facility]) Blood Venous blood specimen / Unknown Venipuncture / Unknown 09/10/2024 3:24 AM EDT 09/10/2024 3:42 AM EDT Narrative [facility] ([facility]) - 09/14/2024 3:49 PM EDT INTERPRETIVE [...] recommendations for testing may be found at [email or web address]. Performed By: [facility] [address] [place] [address] Internal Audit Senior Manager: Austin Bernal MD, PhD CLIA Number: [id number] us Fernando Valenzuela MD LAB BLOOD ORDERABLES Final Resu lt [facility]) [address] [place] [address] * C3 complement (09/10/2024 3:24 AM EDT) C3 Complement 102 84 - 166 mg/dL 09/10/2024 9:22 AM EDT [facility] Blood Venous blood specimen / Unknown Venipuncture / Unknown 09/10/2024 3:24 AM EDT 09/10/2024 3:42 AM EDT Fernando Valenzuela MD LAB BLOOD ORDERABLES Final Resu lt Performing Organization Address City/[facility]/ZIP Co de Phone Number [facility] [address] [place] [address] * C4 complement (09/10/2024 3:24 AM EDT) [facility] C4 Complement 15 13 - 36 mg/dL 09/10/2024 9:22 AM EDT [facility] Blood Venous blood specimen / Unknown Venipuncture / Unknown 09/10/2024 3:24 AM EDT 09/10/2024 3:42 AM EDT Fernando Valenzuela MD LAB BLOOD ORDERABLES Final Resu lt Performing Organization Address City/[facility] [place] [address] * (ABNORMAL) Blood gas panel, venous (09/09/2024 4:50 PM EDT) [facility] pH, Venous 7.35 7.32 - 7.43 LAB HEMATOLOGY METHOD 09/09/2024 4:59 PM EDT [facility] pCO2, Venous 58(H) 37 - 52 mmHg LAB HEMATOLOGY METHOD 09/09/2024 4:59 PM EDT [facility] pO2, Venous 19(L) 25 - 40 mmHg LAB HEMATOLOGY METHOD 09/09/2024 4:59 PM EDT [facility] SO2, Measured, Venous 20(L) 65 - 80 % LAB HEMATOLOGY METHOD 09/09/2024 4:59 PM EDT [facility] Base Excess, Venous 4.9(H) -2.0 - 3.0 mmol/L LAB HEMATOLOGY METHOD 09/09/2024 4:59 PM EDT [facility] Bicarbonate, Calculated, Venous 32(H) 22 - 26 mmol/L LAB HEMATOLOGY METHOD 09/09/2024 4:59 PM EDT [facility] Hematocrit, Whole Blood 30.9(L) 34.0 - 45.0 % LAB HEMATOLOGY METHOD 09/09/2024 4:59 PM EDT [facility] Sodium, Whole Blood 133(L) 136 - 145 mmol/L LAB HEMATOLOGY METHOD 09/09/2024 4:59 PM EDT [facility] Potassium, Whole Blood 4.0 3.6 - 4.9 mmol/L LAB HEMATOLOGY METHOD 09/09/2024 4:59 PM EDT [facility] Chloride, Whole Blood 93(L) 97 - 107 mmol/L LAB HEMATOLOGY METHOD 09/09/2024 4:59 PM EDT [facility] Glucose, Whole Blood 208(H) 74 - 99 mg/dL LAB HEMATOLOGY METHOD 09/09/2024 4:59 PM EDT [facility] Lactate, Venous, Whole Blood 2.3(H) 0.5 - 2.2 mmol/L LAB HEMATOLOGY METHOD 09/09/2024 4:59 PM EDT [facility] Ionized Calcium, Whole Blood 4.5(L) 4.6 - 5.1 mg/dL LAB HEMATOLOGY METHOD 09/09/2024 4:59 PM EDT [facility] Blood Venous blood specimen / Unknown Venipuncture / Unknown 09/09/2024 4:50 PM EDT 09/09/2024 4:55 PM EDT Vini SMITH LAB BLOOD ORDERABLES Final Resul t [facility] [address] [place] [address] * (ABNORMAL) BNP (09/09/2024 3:50 PM EDT) Only the most recent of3 resultswithin the time period is included. N-Terminal, PROBNP, Plasma 10,690(H) 0 - 899 pg/mL 09/09/2024 4:43 PM EDT [facility] Blood Venous blood specimen / Unknown Venipuncture / Unknown 09/09/2024 3:50 PM EDT 09/09/2024 4:04 PM EDT Vinibecky SMITH LAB BLOOD ORDERABLES Final Resul t Performing Organization Address [facility] Co de Phone Number [facility] [address] [place] [address] * EKG now - STAT (adult) (09/09/2024 3:36 PM EDT) Only the most recent of3 resultswithin the time period is included. EKG DIAGNOSIS CLASS Abnormal MUSE ECG Ventricular Rate 61 BPM MUSE ECG Atrial Rate 68 BPM MUSE ECG QRSD Interval 190 ms MUSE ECG QT Interval 546 ms MUSE ECG QTC Interval 549 ms MUSE ECG R [place] -74 degrees MUSE ECG T Wave [place] 120 degrees MUSE ECG Diagnosis Ventricular-p aced rhythm MUSE ECG Diagnosis Abnormal ECG MUSE ECG Diagnosis MUSE ECG Diagnosis Confirmed by Chris Cline ([id number]) on 09/09/2024 4:33:37 PM MUSE ECG 09/09/2024 3:36 PM EDT 09/09/2024 4:33 PM EDT Vini Wild Zhao [place] ECG ORDERABLES Final Result Performing Organization Address [facility] de Phone Number MUSE ECG * VAS [...] - 160 ug/dL 09/08/2024 4:06 PM EDT [facility] Transferrin, Plasma 262 200 - 360 mg/dL 09/08/2024 4:06 PM EDT [facility] Total Iron Binding Capacity, Plasma 328 240 - 450 ug/mL 09/08/2024 4:06 PM EDT [facility] Transferrin Saturation 8(L) 14 - 50 % 09/08/2024 4:06 PM EDT [facility] Blood Venous blood specimen / Unknown Venipuncture / Unknown 09/08/2024 1:33 PM EDT 09/08/2024 1:33 PM EDT us Alisa L Ze DO LAB BLOOD ORDERABLES Final Res ult Performing Organization Address City/[facility]/ZIP Co de Phone Number [facility] [address] [place] [address] * Ferritin (09/08/2024 1:33 PM EDT) Pathologist [facility] Ferritin, Serum 102 13 - 150 ng/mL 09/08/2024 4:37 PM EDT [facility] Blood Venous blood specimen / Unknown Venipuncture / Unknown 09/08/2024 1:33 PM EDT 09/08/2024 1:33 PM EDT us Alisa L Ze DO LAB BLOOD ORDERABLES Final Res ult Performing Organization Address City/[facility]/ZIP Co de Phone Number [facility] [address] [place] [address] * SARS-CoV-2, Flu A, Flu B, and RSV (09/08/2024 1:09 PM EDT) [facility] SARS CoV-2/COVID-19 RNA PCR Result Not Detected Not Detected 09/09/2024 10:48 AM EDT [facility] Influenza A Virus PCR Result Not Detected Not Detected 09/09/2024 10:48 AM EDT [facility] Influenza B Virus PCR Result Not Detected Not Detected 09/09/2024 10:48 AM EDT [facility] Respiratory Syncytial Virus (RSV) PCR Result Not Detected Not Detected 09/09/2024 10:48 AM EDT [facility] Swab Nasopharyngeal structure / Unknown Non-blood Collection / Unknown 09/08/2024 1:09 PM EDT 09/08/2024 4:50 PM EDT Narrative [facility] - 09/09/2024 10:48 AM EDT [...] This test was performed on the [employer] Respiratory Viral Panel, a PCR-based method. Negative [...] MICROBIOLOGY - GENERAL ORD ERABLES Final Result [facility] [address] [place] [address] * RIGHT HEART CATHETERIZATION (08/18/2024 4:04 PM [...] Findings communicated to inpatient cardiology consult service. Brenden Johnson, was present for the entire procedure. Procedure [...] then carried out using a 7.5F VIP [place]-Carter catheter. Pressures were recorded as the catheter [...] the patient was transferred back to the labor and delivery registered nurse holding area in good condition. Study Details [...] Co-Oximetry Mixed Venous (08/18/2024 3:52 PM EDT) [facility] POCT Oxyhemoglobin, Mixed Venous 60.8 % 08/18/2024 3:53 PM EDT [facility] Truck Crane Operator Helper ID Ngozi Linares 08/18/2024 3:53 PM EDT HEALTHCARE LAB Device ID [id number] 08/18/2024 3:53 PM EDT HEALTHCARE LAB POCT Sample Site PA 08/18/2024 3:53 PM EDT [facility] LAB POCT Total Hemoglobin 9.7(L) 11.2 - 15.7 g/dL 08/18/2024 3:53 PM EDT HEALTHCARE LAB 08/18/2024 3:52 PM EDT 08/18/2024 3:53 PM EDT Kenneth James MD LAB POINT OF CARE TE ST DOCKED DEVICE UNSOLICITED RESULTS Final Result [facility] [address] [place] [address] * (ABNORMAL) POCT CO-Oximitry, Venous (08/18/2024 3:50 PM EDT) POCT OXYHEMOGLOBIN, VENOUS 65 40 - 70 % 08/18/2024 3:50 PM EDT HEALTHCARE LAB Truck Crane Operator Helper ID Ngozi Linares 08/18/2024 3:50 PM EDT HEALTHCARE LAB Device ID [id number] 08/18/2024 3:50 PM EDT [facility] POCT Sample Site -[facility]- 08/18/2024 3:50 PM EDT HEALTHCARE LAB POCT Total Hemoglobin 9.7(L) 11.2 - 15.7 g/dL 08/18/2024 3:50 PM EDT HEALTHCARE LAB Venous blood specimen / Unknown 08/18/2024 3:50 PM EDT 08/18/2024 3:50 PM EDT Kenneth James MD LAB POINT OF CARE TE ST DOCKED DEVICE UNSOLICITED RESULTS Final Result Performing Organization Address City/[facility]/ZIP Co de Phone Number HEALTHCARE LAB [address] [place] [address] * Chylomicron Electrophoresis (Reflex Only) (08/17/2024 10:57 AM EDT) [facility] Chylomicron Electrophoresis Billed 08/25/2024 6:56 PM EDT [facility] ([facility]) Fluid Pleural fluid specimen / Unknown 08/17/2024 10:57 AM EDT 08/17/2024 11:10 AM EDT Narrative [facility] ([facility]) - 08/25/2024 6:56 PM EDT Performed By: [facility] [address] [place] [address] Internal Audit Senior Manager: Austin Bernal MD, PhD CLIA Number: [id number] us Boby Rouse APRN LAB REF LAB BLOOD AND FLUID ORD Final Result [facility] ([facility]) [address] [place] [address] * Triglycerides BF with RFLX to CHYLO (SO) (08/17/2024 10:57 AM EDT) Triglyceride, Fluid 27 mg/dL 08/25/2024 6:56 PM EDT [facility] ([facility]) Triglyceride Fluid Source Pleural fluid 08/25/2024 6:56 PM EDT [facility] ([facility]) Chylomicron Screen, Body Fluid Absent Absent 08/25/2024 6:56 PM EDT [facility] ([facility]) Fluid Pleural fluid specimen / Unknown 08/17/2024 10:57 AM EDT 08/17/2024 11:10 AM EDT Narrative [facility] ([facility]) - 08/25/2024 6:56 PM EDT INTERPRETIVE INFORMATION: Triglycerides, Fluid For information on body fluid reference ranges and/or interpretive guidance visit http://artandseek/bodyfluids/ This test was developed and its performance characteristics determined by [facility]. It has not been cleared or approved by the US Food and Drug Administration. This test was performed in a CLIA certified laboratory and is intended for clinical purposes. Chylomicrons were not detected. This appears to be a nonchylous fluid. INTERPRETIVE INFORMATION: Chylomicron Screen, Body Fluid This test was developed and its performance characteristics determined by [facility]. It has not been cleared or approved by the U.S. Food and Drug Administration. This test was performed in a CLIA-certified laboratory and is intended for clinical purposes. Performed By: [facility] [address] [id number] Internal Audit Senior Manager: Austin Bernal MD, PhD CLIA Number: [id number] Boby Rouse APRN LAB REF LAB BLOOD AND FLUID ORD Final Result [facility] ([facility]) [address] [place] [address] * Amylase, Pleural Fluid (08/17/2024 10:57 AM EDT) Amylase, Pleural Fluid 6 U/L 08/17/2024 1:23 PM EDT [facility] Pleural Fluid Structure of right pleural cavity / Unknown Non-blood Collection / Unknown 08/17/2024 10:57 AM EDT 08/17/2024 11:08 AM EDT Narrative [facility] - 08/17/2024 1:23 PM EDT Reference Values: No established reference interval. Interpret with caution. This test was developed and its performance characteristics determined by [facility]. The [place].S. Food and [...] upper reference limit for serum and a octan-zt-immxl amylase ratio greater than one. Note: Interpretive [...] FLUIDS AND STOOLS ORD ERABLES Final Result [facility] [address] [place] [address] * Cholesterol Fluid Battery (08/17/2024 10:57 AM EDT) CHOLESTEROL, FLUID 28 mg/dL 08/19/2024 1:48 PM EDT [facility] ([facility]) CHOLESTEROL FLUID SOURCE Pleural fluid 08/19/2024 1:48 PM EDT [facility] ([facility]) Pleural Fluid Structure of right pleural cavity / Unknown Non-blood Collection / Unknown 08/17/2024 10:57 AM EDT 08/17/2024 11:10 AM EDT Narrative [facility] ([facility]) - 08/19/2024 1:48 PM EDT INTERPRETIVE INFORMATION: Cholesterol, Body Fluid For information on body fluid reference ranges and/or interpretive guidance visit [email or web address]/ This test was developed and its performance characteristics determined by [facility]. It has not been cleared or approved by the [place] Food and Drug Administration. This test was performed in a CLIA certified laboratory and is intended for clinical purposes. Performed By: [id number] [address] [place] [address] Internal Audit Senior Manager: Austin Bernal MD, PhD CLIA Number: [id number] Boby Rouse APRN LAB REF LAB BLOOD AND FLUID ORD Final Result Performing Organization Address [facility]/ZIP Co de Phone Number [facility] ([facility]) [address] [place] [address] * Adenosine Deaminase,Pleural Fluid (08/17/2024 10:57 AM EDT) ADA, Pleural Fluid 5 0 - 30 U/L 08/19/2024 3:10 PM EDT [facility] ([facility]) Pleural Fluid Structure of right pleural cavity / Unknown Non-blood Collection / Unknown 08/17/2024 10:57 AM EDT 08/17/2024 11:10 AM EDT Narrative [facility] ([facility]) - 08/19/2024 3:10 PM EDT INTERPRETIVE INFORMATION:Adenosine Deaminase, Pleural Fluid This test was developed and its performance characteristics determined by [facility]. It has not been cleared or approved by the US Food and Drug Administration. This test was performed in a CLIA certified laboratory and is intended for clinical purposes. Performed By: [id number] [address] [place] [address] Internal Audit Senior Manager: Austin Bernal MD, PhD CLIA Number: [id number] Boby Rouse APRN LAB BODY FLUIDS AND STOOLS ORDERABLES Final Result Performing Organization Address [facility]/ZIP Co de Phone Number [facility] ([facility]) [address] [place] [address] * Glucose - Pleural Right (08/17/2024 10:57 AM EDT) Glucose, Fluid 309 mg/dL 08/17/2024 1:14 PM EDT [facility] Pleural Fluid Structure of right pleural cavity / Unknown Non-blood Collection / Unknown 08/17/2024 10:57 AM EDT 08/17/2024 11:08 AM EDT Narrative [facility] - 08/17/2024 1:14 PM EDT [...] BODY FLUIDS AND STOOLS ORDERABLES Final Result [facility] [address] [place] [address] * (ABNORMAL) Blood gas panel, arterial (08/15/2024 5:01 AM EDT) pH, Arterial 7.46(H) 7.31 - 7.42 LAB HEMATOLOGY METHOD 08/15/2024 5:14 AM EDT [facility] pCO2, Arterial 46 35 - 48 mmHg LAB HEMATOLOGY METHOD 08/15/2024 5:14 AM EDT [facility] pO2, Arterial 70(L) >70 mmHg LAB HEMATOLOGY METHOD 08/15/2024 5:14 AM EDT [facility] SO2, Measured, Arterial 95 94 - 98 % LAB HEMATOLOGY METHOD 08/15/2024 5:14 AM EDT [facility] Base Excess, Arterial 7.4(H) -2.0 - 3.0 mmol/L LAB HEMATOLOGY METHOD 08/15/2024 5:14 AM EDT [facility] Bicarbonate, Calculated, Arterial 32(H) 22 - 26 mmol/L LAB HEMATOLOGY METHOD 08/15/2024 5:14 AM EDT [facility] Hematocrit, Whole Blood 30.3(L) 34.0 - 45.0 % LAB HEMATOLOGY METHOD 08/15/2024 5:14 AM EDT [facility] Sodium, Whole Blood 137 136 - 145 mmol/L LAB HEMATOLOGY METHOD 08/15/2024 5:14 AM EDT [facility] Potassium, Whole Blood 3.0(L) 3.6 - 4.9 mmol/L LAB HEMATOLOGY METHOD 08/15/2024 5:14 AM EDT [facility] Chloride, Whole Blood 96(L) 97 - 107 mmol/L LAB HEMATOLOGY METHOD 08/15/2024 5:14 AM EDT [facility] Glucose, Whole Blood 75 74 - 99 mg/dL LAB HEMATOLOGY METHOD 08/15/2024 5:14 AM EDT [facility] Ionized Calcium, Whole Blood 4.6 4.6 - 5.1 mg/dL LAB HEMATOLOGY METHOD 08/15/2024 5:14 AM EDT [facility] Lactate, Arterial, Whole Blood 0.7 0.5 - 1.6 mmol/L LAB HEMATOLOGY METHOD 08/15/2024 5:14 AM EDT [facility] Blood Arterial blood specimen / Unknown Arterial Puncture / Unknown 08/15/2024 5:01 AM EDT 08/15/2024 5:13 AM EDT [facility] Ashish Vargas MD LAB BLOOD ORDERABLES Final R esult [facility] [address] [place] [address] * Vitamin D 25 Hydroxy (08/15/2024 4:52 AM EDT) Pathologist [facility] Vitamin D 25 Hydroxy 51.5 20.0 - 80.0 ng/mL 08/15/2024 6:37 AM EDT [facility] Blood Venous blood specimen / Unknown Venipuncture / Unknown 08/15/2024 4:52 AM EDT 08/15/2024 4:59 AM EDT Narrative [facility] - 08/15/2024 6:37 AM EDT Testing performed on [employer], standardized against NIST SRM 2972. When testing [...] ORDERABLES Final Re sult Performing Organization Address [facility] Co de Phone Number [facility] [address] [place] [address] * Phosphorus (08/15/2024 4:52 AM EDT) Phosphorus, Plasma 3.2 2.5 - 4.5 mg/dL 08/15/2024 5:32 AM EDT [facility] Blood Venous blood specimen / Unknown Venipuncture / Unknown 08/15/2024 4:52 AM EDT 08/15/2024 4:59 AM EDT us Arben Ibarra MD LAB BLOOD ORDERABLES Final Re sult Performing Organization Address [facility] Co de Phone Number [facility] [address] [place] [address] * (ABNORMAL) Hemoglobin A1c (08/14/2024 6:08 PM EDT) Hemoglobin A1c 7.9(H) <5.7 % 08/15/2024 11:41 AM EDT [facility] Blood Venous blood specimen / Unknown Venipuncture / Unknown 08/14/2024 6:08 PM EDT 08/14/2024 6:10 PM EDT Narrative [facility] - 08/15/2024 11:41 AM EDT HA1C Interpretive Data: Diagnosis of Diabetes: Diabetic > or = 6.5% Pre-diabetic 5.7 to 6.4% Non-diabetic < or = 5.6% Glycemic Targets for Type I and Type II Diabetics: Non- Adults <7.0% Adults <6.0% Children and Adolescents <7.5% Source: [place] [employer]. Standards of medical care in diabetes,2017. Diabetes Care.2017:40 (suppl 1):S1-S135. us Arben Ibarra MD LAB BLOOD ORDERABLES Final Re sult Performing Organization Address City/[facility]/ZIP Co de Phone Number [facility] [address] [place] [address] * (ABNORMAL) Troponin now and 120 min (08/14/2024 2:55 PM EDT) Pathologist [facility] Troponin T, High Sensitivity, 0 Hour 29(H) <14 ng/L 08/14/2024 3:43 PM EDT [facility] Blood Venous blood specimen / Unknown Venipuncture / Unknown 08/14/2024 2:55 PM EDT 08/14/2024 2:58 PM EDT us Jackson Puente MD LAB BLOOD ORDERABLES Fi nal Result Performing Organization Address City/[facility]/ZIP Co de Phone Number [facility] [address] [place] [address] * Hepatitis C Antibody - ED (01/29/2024 3:32 PM EST) Pathologist [facility] Hepatitis C Antibody Negative Negative 01/29/2024 5:07 PM EST [facility] Blood Venous blood specimen / Unknown Venipuncture / Unknown 01/29/2024 3:32 PM EST 01/29/2024 4:03 PM EST us Fortino Ball MD LAB BLOOD ORDERABLES Final Result Performing Organization Address [facility] Co de Phone Number [facility] [address] [place] [address] * Dexa Bone Density (01/10/2023 10:23 AM EDT) Anatomical Region Laterality Modality L-spine Radiographic Elissa ging Narrative 01/12/2023 8:29 AM EST [facility] - Nephrology, Bone & Mineral Metabolism [address] [place] [address], [place] [address] DXA Bone Densitometry Report: [01/10/2023] Subjective BMD test performed using the Odyssey Thera DXA System (analysis version: 14.10) manufactured by [employer]. REFERRING PROVIDER: Alisa Ortega DO CLINICAL INFORMATION: [...] to Health Maintenance Insurance Advance Directives * Full Code (Latest Code [...] Patient has decision-making capacity? 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
--- OUTSIDE RECORDS SUMMARY | 2024-11-02 13:06 | XMS_ITS | Encounter Summary ---
Author Organization Healthcare Address [address] [place] [address] Care Team Providers Care Medical Practice Assistant Name Role Phone Alisa Kunz DO Primary Care Provider Kodi Bustos DO Unavailable [phone] Sujit Arriola MD Unavailable [phone] Sujit Reyes MD Unavailable [phone] Ekaterina Gómez Unavailable Unavailable Zully Caldwell LPN Unavailable Unavailable Ekaterina Gómez Unavailable Unavailable Patricia Yañez LPN Unavailable Unavailab le Encounter Details Date Type Department Care Team (Late st Contact Info) Description 07/08/2024 Results Follow-Up [facility] Medicine Specialties [address] [place] [address] Lavern Shoemaker MD [address] [phone] Social History Tobacco Use Types Packs/Day Years [...] Questionnaire-2 Score 0 09/08/2024 [facility] - Occupational [...] living in a half-way (including now)? No 08/25/2024 CAGE ASSESSMENT Answer [...] drink first t anselmo in the morning ([employer]) to steady your nerves or to get rid of a hangover? 0 08/14/2024 CAGE Questionnaire Score 0 025 Utilities Answer Date Recorded In the past 12 months has e for[MD], gas, oil, or water [employer] threatened to shut off services in [...] [facility] Internal Medicine [address] [place] [phone] Alisa Kunz DO [address] [place] [address] 12/23/2024 4:00 PM EDT Office Visit [facility] Medicine Specialties [address] [place] [phone] Lavern Shoemaker MD [address] [place] [address] 02/02/2025 8:40 AM EST Office Visit [facility] Internal Medicine [address] [place] [address] Alisa Kunz, [address] [place] [address] 02/09/2025 12:20 PM EST Office Visit Janette Suazo [facility] Endocrinology [address] [place] [phone] Anne-Marie Kolb, MEDICAL BILLING AND CODING INSTRUCTOR [address] [facility] [address] [place] [address] documented as of this encounter [...] as of this encounter Care Teams Medical Practice Assistant Relationship Specialty Start Date End Date Alisa Kunz DO [address] [place] [address] PCP - General Internal Medicine 03/13/21 Kodi Bustos DO [address] [address] Surgeon Cardiothoracic Surgery 11/06/22 Sujit Arriola MD [address] [place] [address] Consulting Physician Pulmonary Disease 11/06/22 Sujit Reyes MD [address] [place] [address] Referring Physician 12/04/22 Ekaterina Gómez Mold Maker Apprentice [employer]ap Basis Consultant 07/14/24 07/14/24 Zully Caldwell LPN [employer] [place] [address] TCM Nurse 07/16/24 08/15/24 Ekaterina Gómez Mold Maker Apprentice [employer]ap Basis Consultant 08/16/24 08/16/24 Patricia Yañez LPN [facility] TCM Nurse 08/25/24 10/17/24 documented as of this encounter
--- OUTSIDE RECORDS SUMMARY | 2024-11-02 13:08 | XMS_ITS | Clinical Summary ---
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 (E10.621) L97.522 (ICD-10-CM ) 04/20 Active 04/20 Patricia Sutherland Non-pressure chronic ulcer of other part of left foot with fat layer exposed Cellulitis, foot, left 978572627 (SNOMED CT) 04/20 Active 04/20 Patricia Koko Cellulitis of foot Cellulitis, toe, left 73035730 (SNOMED CT) 04/20 Active 04/20 Patricia Koko Cellulitis of toe Left atrial thrombus 771002667 (SNOMED CT) 04/20 Active 04/20 Patricia Koko Atrial thrombosis SLE (Systemic lupus erythematosus ) 93783964 (SNOMED CT) 04/20 Active 04/20 Patricia Koko Systemic lupus erythematosus Presence of cardiac pacemaker 019243246 (SNOMED CT) 04/20 Active 04/20 Patricia Sutherland Cardiac pacemaker in situ Coronary artery disease, S/P CABG 055091645 (SNOMED CT) 04/20 Active 04/20 Patricia Sutherland Arteriosclerosis of coronary artery bypass graft DM, type I 95895497 (SNOMED CT) 04/20 Active 04/20 Patricia Sutherland Type 2 diabetes mellitus Benign Essential Hypertension 55965862 (SNOMED CT) 04/20 Active 04/20 Patricia Sutherland Benign hypertension Medications Medication Instructions Start Date Stop Date Generic Name NDC Provider Iron (ferrous sulfate) (ferrous sulfate) ferrous sulfate [facility] B-12 1000 MCG CAPS every morning cya nocobalamin (vitamin b-12) 29271876266 [facility] LIVALO 4 MG TABS every night pitavas tatin calcium 70340928700 [facility] ZETIA 10 MG TABS every night ezetimibe 808933974 01 [facility] latanoprost (bulk) every evening bulk [facility] Zyrtec (cetirizine) every evening cetirizine [facility] MYCOPHENOLATE MOFETIL 500 MG TABS twice a day mycophenolat e mofetil 28476745952 [facility] CETIRIZINE HCL 10 MG TABS Take 1 tablet by mouth once a day 02/23 cetirizine 64148219431 [facility] BRIMONIDINE TARTRATE 0.2 % SOLN Apply 1 drop in eye as directed 06/14 brimonidine 06300768659 [facility] Trelegy Ellipta 200-62.5-25 MCG/INH inhaler Inhale 2 puff once a day 07/17 Trelegy Ellipta 200-62.5-25 MCG/INH inhaler [facility] HYDROXYCHLOROQUINE SULFATE 200 MG TABS Take 1 tablet by mouth once a day 12/05 hydroxychloroquine 62905353512 [facility] RISAQUAD CAPS Take 1 capsule by mouth once a day 04/18 l.acid,para-b.bifid um-s.therm 97288736028 [facility] LOSARTAN POTASSIUM 25 MG TABS Take 1 tablet by mouth once a day 11/17 losartan 44789506840 [facility] FOLIC ACID 1 MG TABS Take 1 tablet by mouth once a day folic acid 49917952786 [facility] PITAVASTATIN CALCIUM 2 MG TABS Take 1 tablet by mouth every night 02/23 pitavastatin calcium 66907857708 [facility] Insulin Glargine (TOUTREVOR SOLOSTAR SC) Inject 23 unit subcutaneously every night as directed 02/23 TOUJEO SOLOSTAR SC [facility] EZETIMIBE 10 MG TABS Take 1 tablet by mouth every night 02/23 ezetimibe 98335015966 [facility] DULOXETINE HCL 20 MG CPEP Take 1 capsule by mouth once a day 02/23 duloxetine 98552088111 [facility] BUSPIRONE HCL 5 MG TABS Take 1 tablet by mouth twice a day buspirone 95556467322 [facility] INSULIN LISPRO 100 UNIT/ML SOLN Inject 3 unit subcutaneously three times a day as directed 02/23 insulin lispro 67248083547 [facility] METOPROLOL SUCCINATE ER 25 MG [id number] Take 1 tablet by mouth once a day 12/06 metoprolol succinate 37186102976 [facility] LATANOPROST 0.005 % SOLN Administer 1 drop into both eyes every night 06/15 latanoprost 89750195125 [facility] ASPIRIN LOW DOSE 81 MG TBEC Take 1 tablet by mouth every night aspirin 70395614640 [facility] LEVOTHYROXINE SODIUM 125 MCG TABS Take 1 tablet by mouth once a day 02/23 levothyroxine 74785536292 [facility] WARFARIN SODIUM 5 MG TABS Take 1 tablet by mouth every night 04/04 warfarin 66555446646 [facility] HYDROXYCHLOROQUINE SULFATE 200 MG TABS Take 1 tablet by mouth every night 02/23 hydroxychloroquine 41396997966 [facility] AZITHROMYCIN 250 MG TABS Take 1 tablet by mouth once a day 02/23 azithromycin 94815199041 [facility] GABAPENTIN 100 MG CAPS Take 9 capsule by mouth every night 08/28 gabapentin 55528097316 [facility] DULOXETINE HCL 60 MG CPEP Take 1 capsule by mouth Daily. 60mg and 20mg in the morning 02/23 duloxetine 66971187215 [facility] Calcium Citrate-Vitamin D (CALCIUM D PO) Take 1 tablet by mouth once a day CALCIUM D PO [facility] EZETIMIBE 10 MG TABS Take 1 tablet by mouth once a day 09/20 ezetimibe 93018498642 Madyson Villar Toujeo Max U-300 SoloStar (insulin glargine u-300 conc) every morning insulin glargine u-300 conc Madyson Villar CYMBALTA 60 MG CPEP every morning duloxetine 000 65647149 Madyson Villar Cymbalta 20 mg capsule,delayed release every morning duloxetine 03925482608 Madyson Villar WARFARIN SODIUM 5 MG TABS Take 1 tablet by mouth Every Night. 04/04 warfarin 93669134680 [facility] Trelegy Ellipta 200-62.5-25 MCG/INH inhaler Inhale 2 puffs Daily. 07/17 Trelegy Ellipta 200-62.5-25 MCG/INH inhaler [facility] PITAVASTATIN CALCIUM 2 MG TABS Take 1 tablet by mouth Every Night. 02/23 pitavastatin calcium 96051798175 [facility] METOPROLOL SUCCINATE ER 25 MG [id number] Take 1 tablet by mouth Daily. 12/06 metoprolol succinate 16578219698 [facility] LOSARTAN POTASSIUM 25 MG TABS Take 1 tablet by mouth Daily. 11/17 losartan 07807008726 [facility] LEVOTHYROXINE SODIUM 125 MCG TABS Take 1 tablet by mouth Daily. 02/23 levothyroxine 74256073583 [facility] LATANOPROST 0.005 % SOLN Administer 1 drop to both eyes Every Night. 06/15 latanoprost 40682908365 [facility] RISAQUAD CAPS Take 1 capsule by mouth Daily for 14 days. 04/18 l.acid,para-b.bifid um-s.therm 63451020890 [facility] INSULIN LISPRO 100 UNIT/ML SOLN Inject 3 Units under the skin into the appropriate area as directed 3 (Three) Times a Day Before Meals. 02/23 insulin lispro 92616819010 [facility] Insulin Glargine (TOURANDYO SOLOSTAR SC) Inject 23 Units under the skin into the appropriate area as directed Every Night. 02/23 TOUJEO SOLOSTAR SC [facility] HYDROXYCHLOROQUINE SULFATE 200 MG TABS Take 1 tablet by mouth Daily. 12/05 hydroxychloroquine 05448981037 [facility] HYDROXYCHLOROQUINE SULFATE 200 MG TABS Take 1 tablet by mouth Every Night. 09/07 hydroxychloroquine 93969014942 [facility] GABAPENTIN 100 MG CAPS Take 9 capsules by mouth Every Night. 08/28 gabapentin 23996266610 [facility] FOLIC ACID 1 MG TABS Take 1 tablet by mouth Daily. 02/23 folic acid 31665534496 [facility] EZETIMIBE 10 MG TABS Take 1 tablet by mouth Daily. 09/20 ezetimibe 93780953283 [facility] EZETIMIBE 10 MG TABS Take 1 tablet by mouth Every Night. 02/23 ezetimibe 36490734778 [facility] DULOXETINE HCL 60 MG CPEP Take 1 capsule by mouth Daily. 60mg and 20mg in the morning 02/23 duloxetine 02549447458 [facility] DULOXETINE HCL 20 MG CPEP Take 1 capsule by mouth Daily. 02/23 duloxetine 80103705418 [facility] CETIRIZINE HCL 10 MG TABS Take 1 tablet by mouth Daily. 02/23 cetirizine 32616557224 [facility] CEFDINIR 300 MG CAPS Take 1 capsule by mouth Every 12 (Twelve) Hours for 5 doses. Indications: Infection of the Skin and/or Soft Tissue 04/17 cefdinir 91558411670 [facility] Calcium Citrate-Vitamin D (CALCIUM D PO) Take 1 tablet by mouth Daily. 02/23 CALCIUM D PO [facility] BUSPIRONE HCL 10 MG TABS Take 1 tablet by mouth 2 (Two) Times a Day. 02/23 buspirone 72174034381 [facility] BRIMONIDINE TARTRATE 0.2 % SOLN Apply 1 drop to eye(s) as directed by provider. 06/14 brimonidine 96330149295 [facility] AZITHROMYCIN 250 MG TABS Take 1 tablet by mouth Daily. 09/07 azithromycin 86281592809 [facility] ASPIRIN LOW DOSE 81 MG TBEC Take 1 tablet by mouth Every Night. 09/07 aspirin 53140465949 [facility] Medications Administered No information available. 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
--- OUTSIDE RECORDS SUMMARY | 2024-11-02 13:09 | XMS_ITS | Encounter Summary ---
Author Organization [facility] Address [address] [place] [address] Care Team Providers Care Seniour Insight Manager Name Role Phone Alisa Kunz DO Primary Care Provider Kodi Bustos DO Unavailable [phone] Sujit Arriola MD Unavailable [phone] Sujit Reyes MD Unavailable [phone] Patricia Yañez LPN Unavailable Unavailab Zee Lr DO Unavailable [phone] Reason for Visit * Reason Onset Date Comments HCN - Patient Message 09/08/2024 Encounter Details Date Type Department Care Team (Late st Contact Info) Description 09/08/2024 Telephone [facility] Internal Medicine [address], [address]rd [place] [address] Alisa Kunz DO [address] [place] [address] HCN - Patient Message Social [...] drink first t anselmo in the morning (EYE-BAKERY DEMONSTRATOR) to steady your nerves or to get rid of a hangover? 0 08/14/2024 CAGE Questionnaire Score 0 025 Utilities Answer Date Recorded In the past 12 months has th [employer], gas, oil, or water [employer] threatened to shut off services in your [...] optimal time of day to reach caller: [phone] Note: Please do not reply to this [...] [facility] [address] [place] [address] Alisa Kunz DO [address] [place] [address] 12/23/2024 4:00 PM EDT Office Visit [facility] Medicine Specialties [address], [address] [place] [address] Lavern Shoemaker MD [address] [place], [place] [id number] 02/02/2025 8:40 AM EST Office Visit [facility] Internal Medicine [address], [address] [place] [address] Alisa Kunz, DO [address] [place] [address] 02/09/2025 12:20 PM EST Office Visit [facility] Endocrinology [address] [place] [address] Anne-Marie Kolb, HEALTH PHYSICS TECHNICIAN [address] [facility] [address] [place] [address] documented as of this encounter [...] documented as of this encounter Care Teams Seniour Insight Manager Relationship Specialty Start Date End Date Alisa Kunz, DO [address] [facility] [address] [place] [address] PCP - General Internal Medicine 03/13/21 Kodi Bustos DO [address] [place] [phone] Surgeon Cardiothoracic Surgery 11/06/22 Sujit Arriola MD [address] [place] [address] Consulting Physician Pulmonary Disease 11/06/22 Sujit Reyes MD [address] [place] [address] Referring Physician 12/04/22 Patricia Yañez LPN [facility] TCM Nurse 08/25/24 10/17/24 Zee Lazar DO [address] [place] [address] Resident 09/08/24 documented as of this encounter
--- OUTSIDE RECORDS SUMMARY | 2024-11-02 13:09 | XMS_ITS | Encounter Summary ---
Author Organization [facility] Address [address] [place] [address] Care Team Providers Care Grocery Store Associate Name Role Phone Alisa Kunz DO Primary Care Provider Kodi Bustos DO Unavailable [phone] Sujit Arriola MD Unavailable [phone] Sujit Reyes MD Unavailable [phone] Patricia Yañez LPN Unavailable Unavailab le Encounter Details Date Type Department Care Team (Late st Contact Info) Description 09/06/2024 Telephone [facility] Internal Medicine [address], [address] [place] [address] Alisa Kunz DO [address] [place] [address] Social History Tobacco Use Types [...] Patient Health Questionnaire-2 Score 0 09/08/2024 [facility] of Occupat [...] first t anselmo in the morning (EYE-RETAIL PARTS PRO) to steady your nerves or to get [...] daily. * Telephone Encounter - Madison Sheikh - 09/06/2024 3:16 PM EDT Clinical Concern/Question [...] start of care. Best contact number: Other: [phone] Optimal time of day to reach caller: [...] will receive notification of the communication/outcome via [employer] documented in this encounter Plan of Treatment Upcoming Encounters Date Type Department Care Team (Late st Contact Info) Description 12/06/2024 11:20 AM EDT Office Visit [facility] Internal Medicine [address] [place] [address] Alisa Kunz DO [address] [place] [address] 12/23/2024 4:00 PM EDT Office Visit [facility] Medicine Specialties [address]nd [place] [address] Lavern Shoemaker MD [address] [place] [address] 02/02/2025 8:40 AM EST Office Visit [facility] Internal Medicine [address] [place] [address] Alisa Kunz DO [address] [place] [address] 02/09/2025 12:20 PM EST Office Visit [facility] Endocrinology [address] [place] [address] Anne-Marie Kolb L, LEVEL GLASS VIAL FILLER [address] [facility] [address] [place] [address] documented as of this encounter [...] documented as of this encounter Care Teams Grocery Store Associate Relationship Specialty Start Date End Date Alisa Kunz DO [address] [place] [phone] PCP - General Internal Medicine 03/13/21 Kodi Bustos DO [address] [phone] Surgeon Cardiothoracic Surgery 11/06/22 Sujit Arriola MD [address] [place] [phone] Consulting Physician Pulmonary Disease 11/06/22 Sujit Reyes MD [address] [place] [address] Referring Physician 12/04/22 Patricia Yañez LPN [facility] TCM Nurse 08/25/24 10/17/24 documented as of this encounter
--- OUTSIDE RECORDS SUMMARY | 2024-11-02 13:09 | XMS_ITS | Encounter Summary ---
Author Organization [facility] Address [address] [place] [address] Care Team Providers Care Data Input Clerk Name Role Phone Alisa Kunz Torri DO Primary Care Provider [phone] Kodi Bustos DO Unavailable [phone] Sujit Arriola MD Unavailable [phone] Sujit Reyes MD Unavailable [phone] Patricia Yañez LPN Unavailable Unavailab le Encounter Details Date Type Department Care Team (Late st Contact Info) Description 09/07/2024 Telephone [facility] Medicine Specialties [address] [place] [address] [place] [address] Social History Tobacco Use Types Packs/Day Years [...] do you attend [facility] or jew services? 1 to 4 times [...] drink first t anselmo in the morning (EYE-COMBINATION WELDER APPRENTICE) to steady your nerves or to [...] She would like to speak to her credit review analyst - but she would like someone different from Dr. Osborne CB: [phone] documented in this encounter Plan of Treatment Upcoming Encounters Date Type Department Care Team (Late st Contact Info) Description 12/06/2024 11:20 AM EDT Office Visit [facility] Internal Medicine [address] [place] [address] Alisa Kunz, DO [address] [place] [address] 12/23/2024 4:00 PM EDT Office Visit [facility] Medicine [facility] [address] [place] [address] Lavern Shoemaker MD [address] [place], [place] [id number] 02/02/2025 8:40 AM EST Office Visit [facility] Internal Medicine [address] [place] [address] Alisa Kunz, DO [address] [place] [address] 02/09/2025 12:20 PM EST Office Visit [facility] Endocrinology [address] [place] [address] Anne-Marie Kolb, AUDIT SENIOR ASSOCIATE [address] [address] documented as of this encounter Visit [...] as of this encounter Care Teams Data Input Clerk Relationship Specialty Start Date End Date Alisa Kunz DO [address] [place] [address] PCP - General Internal Medicine 03/13/21 Kodi Bustos, DO [address] [place] [address] [place] [address] Surgeon Cardiothoracic Surgery 11/06/22 Sujit Arriola MD [address] [place] [phone] Consulting Physician Pulmonary Disease 11/06/22 Sujit Reyes MD [address] [place] [phone] Referring Physician 12/04/22 Patricia Yañez LPN [facility] TCM Nurse 08/25/24 10/17/24 documented as of this encounter
--- OUTSIDE RECORDS SUMMARY | 2024-11-02 13:09 | XMS_ITS | Encounter Summary ---
Author Organization [facility] Address [address] [place] [address] Care Team Providers Care Repulping Supervisor Name Role Phone Alisa Kunz Torri DO Primary Care Provider Kodi Bustos DO Unavailable [phone] Sujit Arriola MD Unavailable [phone] Sujit Reyes MD Unavailable [phone] Patricia Yañez LPN Unavailable Unavailab Zee Lr DO Unavailable [phone] Encounter Details Date Type Department Care Team (Late st Contact Info) Description 09/07/2024 Telephone [facility] Medicine Specialties [address] [place] [address] Sadiq Osborne, SHANA [address] [place] [phone] Social History Tobacco Use Types Packs/Day Years [...] Recorded Patient Health Questionnaire-2 Score 0 09/08/2024 [facility] - Occupational [...] first t anselmo in the morning (EYE-FURNACE OPERATOR OIL OR GAS) to steady your nerves or to get rid of a hangover? 0 08/14/2024 CAGE Questionnaire Score 0 025 Utilities Answer Date Recorded In the past 12 months has th [employer], gas, oil, or water [employer] threatened to shut off services in your [...] her mouth. Please call. Best contact number: [phone] (mobile) Optimal time of day to reach caller: ANYTIME Additional comments/information from caller: None Note: Please do not reply to this message. Follow-up communication and further actions as a result of this message need to be communicated with the patient directly, if the patient is not active onMyChart. If the patient is active on MyChart, they will receive notification of the communication/outcome via [employer]. documented in this encounter Plan of Treatment Upcoming Encounters Date Type Department Care Team (Late st Contact Info) Description 12/06/2024 11:20 AM EDT Office Visit [facility] Internal Medicine [address]rd [place] [address] Alisa Kunz, DO [address] [address] 12/23/2024 4:00 PM EDT Office Visit [facility] Medicine Specialties [address] [place] [address] Lavern Shoemaker MD [address] [place] [address] 02/02/2025 8:40 AM EST Office Visit [facility] Internal Medicine [address]rd [place] [address] Alisa Kunz, DO [address] [address] 02/09/2025 12:20 PM EST Office Visit [facility] Endocrinology [address] [place] [address] Anne-Marie Kolb, IGNITER CAPPER [address] [place] [address] documented as of this encounter [...] documented as of this encounter Care Teams Repulping Supervisor Relationship Specialty Start Date End Date Alisa Kunz DO [address] [place] [address] PCP - General Internal Medicine 03/13/21 Kodi Bustos, DO [address] [place] [phone] Surgeon Cardiothoracic Surgery 11/06/22 Sujit Arriola MD [address] [place] [address] Consulting Physician Pulmonary Disease 11/06/22 Sujit Reyes MD [address] [place] [address] Referring Physician 12/04/22 Patricia Yañez LPN [facility] TCM Nurse 08/25/24 10/17/24 Zee Lazar DO [address] [place] [address] Resident 09/08/24 documented as of this encounter
--- OUTSIDE RECORDS SUMMARY | 2024-11-02 13:09 | XMS_ITS | Encounter Summary ---
Author Organization [facility] Address [address] [place] [address] Care Team Providers Care Wool Hat Forming Machine Tender Name Role Phone Alisa Kunz DO Primary Care Provider Kodi Bustos DO Unavailable [phone] Sujit Arriola MD Unavailable [phone] Sujit Reyes MD Unavailable [phone] Patricia Yañez LPN Unavailable Unavailab Zee Lr DO Unavailable [phone] Encounter Details Date Type Department Care Team (Late st Contact Info) Description 09/09/2024 Results Follow-Up [facility] Internal Medicine [address], [address]rd [place] [address] Zee Lazar DO [address] [place], [place] [phone] Social History Tobacco Use Types Packs/Day Years [...] in a long term (including now)? No 09/13/2024 CAGE ASSESSMENT Answer [...] drink first t anselmo in the morning (EYE-DOCUMENTATION SPEC) to steady your nerves or to get rid of a hangover? 0 08/14/2024 CAGE Questionnaire Score 0 025 Utilities Answer Date Recorded In the past 12 months has th e [employer], gas, oil, or water company threatened to [...] Description 12/06/2024 11:20 AM EDT Office Visit [facility] Internal Medicine [address]rd [place] [phone] Alisa Kunz, [address] [facility] [address] [place] [address] 12/23/2024 4:00 PM EDT Office Visit [facility] Medicine Specialties [address], [address] [place] [address] Lavern Shoemaker MD [address] [place], [place] [phone] 02/02/2025 8:40 AM EST Office Visit [facility] Internal Medicine [address]rd [place] [address] Alisa Kunz, DO [address] [facility] [address] [place] [address] 02/09/2025 12:20 PM EST [facility] [address] [place] [address] Anne-Marie Kolb L, CARE REP 2[address] [facility] [address] [place] [address] documented as of this encounter Visit Diagnoses [...] documented as of this encounter Care Teams Wool Hat Forming Machine Tender Relationship Specialty Start Date End Date Alisa Kunz DO [address] [place] [address] PCP - General Internal Medicine 03/13/21 Kodi Bustos DO [address] [phone] Surgeon Cardiothoracic Surgery 11/06/22 Sujit Arriola MD [address] [place] [phone] Consulting Physician Pulmonary Disease 11/06/22 Sujit Reyes MD [address] [place] [address] Referring Physician 12/04/22 Patricia Yañez LPN [facility] TCM Nurse 08/25/24 10/17/24 Zee Lazar DO [address] [place], [place] [phone] Resident 09/08/24 documented as of this encounter
--- OUTSIDE RECORDS SUMMARY | 2024-11-02 13:09 | XMS_ITS | Encounter Summary ---
Author Organization [facility] Address [address] [place] [address] Care Team Providers Care Cloth Brushing And Sueding Supervisor Name Role Phone Alisa Kunz DO Primary Care Provider Kodi Bustos DO Unavailable [phone] Sujit Arriola MD Unavailable [phone] Sujit Reyes MD Unavailable [phone] Patricia Yañez LPN Unavailable Unavailab Zee Lr DO Unavailable [phone] Reason for Visit * Reason Onset Date Comments HCN Clinical Concern/Question 09/03/2024 Pl ease see note... Encounter Details Date Type Department Care Team (Late st Contact Info) Description 09/03/2024 Telephone [facility] Internal Medicine [address], 3rd [place] [address] Alisa Kunz DO [address] [place] [address] HCN Clinical Concern/Question (Please see [...] Questionnaire-2 Score 0 09/08/2024 [facility] Occupat ional [facility] - Occupational [...] drink first t anselmo in the morning (EYE-FIELD SAMPLING TECHNICIAN) to steady your nerves or to get rid of a hangover? 0 08/14/2024 CAGE Questionnaire Score 0 025 Utilities Answer Date Recorded In the past 12 months has th [employer], gas, oil, or water [employer] threatened to shut off services in your [...] television Not at all 09/08/2024 11:19 AM Shahsank Barreto Moving or speaking so slowly that [...] Behavior (Lifetime) No 8:00 AM EDT Ashley, [place], RN documented as of this encounter Miscellaneous Notes * Telephone Encounter - Mary Guillen - 09/03/2024 11:09 AM EDT Clinical Concern/Question Reason for Call: Patient is returning missed call from social services designee and is asking for a call back. Best contact number: [phone] (mobile) Optimal time of day to reach [...] will receive notification of the communication/outcome via [employer]. documented in this encounter Plan of Treatment Upcoming Encounters Date Type Department Care Team (Late st Contact Info) Description 12/06/2024 11:20 AM EDT Office Visit [facility] Internal Medicine [address] 3rd [place] [address] Alisa Kunz, DO [address] [address] 12/23/2024 4:00 PM EDT Office Visit [facility] Medicine Specialties [address], 2nd [place] [address] Lavern Shoemaker MD [address] [place] [address] 02/02/2025 8:40 AM EST Office Visit [facility] Internal Medicine [address], 3rd [place] [address] Alisa Kunz, DO [address] [address] 02/09/2025 12:20 PM EST Office Visit [facility] Endocrinology [address] [place] [address] Anne-Marie Kolb, FENCE SUPERVISOR [address] [place] [address] documented as of this encounter [...] as of this encounter Care Teams Cloth Brushing And Sueding Supervisor Relationship Specialty Start Date End Date Alisa Kunz DO [address] [place] [address] PCP - General Internal Medicine 03/13/21 Kodi Bustos DO [address] [phone] Surgeon Cardiothoracic Surgery 11/06/22 Sujit Arriola MD [address] [place] [address] Consulting Physician Pulmonary Disease 11/06/22 Sujit Reyes MD [address] [place] [address] Referring Physician 12/04/22 Patricia Yañez, TAXI PROPRIETOR [facility] TCM Nurse 08/25/24 10/17/24 Zee Lazar DO [address] [place] [address] Resident 09/08/24 documented as of this encounter
--- OUTSIDE RECORDS SUMMARY | 2024-11-02 13:09 | XMS_ITS | Encounter Summary ---
Author Organization Healthcare Address [address] [place] [address] Care Team Providers Care Analyst Sales Name Role Phone Alisa Kunz DO Primary Care Provider [phone] Kodi Bustos DO Unavailable [phone] Sujit Arriola MD Unavailable [phone] Sujit Reyes MD Unavailable [phone] Patricia Yañez LPN Unavailable Unavailab Zee Lr DO Unavailable [phone] Encounter Details Date Type Department Care Team [...] Questionnaire-2 Score 0 09/08/2024 [facility] Occupat ional [facility] - Occupational Stress Questionnaire Answer Date [...] first t anselmo in the morning (EYE-FIELD CROP FARMWORKER) to steady your nerves or to get rid of a hangover? 0 08/14/2024 CAGE Questionnaire Score 0 025 Utilities Answer Date Recorded In the past 12 months has th e [employer], gas, oil, or water company threatened to [...] Description 12/06/2024 11:20 AM EDT Office Visit [facility] Internal Medicine [address], 3rd [place] [address] Alisa Kunz, [address] [place] [address] 12/23/2024 4:00 PM EDT Office Visit [facility] Medicine Specialties [address] 2nd [place] [address] Lavern Shoemaker MD [address] [place], [place] [phone] 02/02/2025 8:40 AM EST Office Visit [facility] Internal Medicine [address], [address]rd [place] [address] Alisa Kunz DO [address] [facility] 304 [place] [address] 02/09/2025 12:20 PM EST [facility] Endocrinology [address] [place] [address] Anne-Mraie Kolb L, VP OF TECHNOLOGY 2[address] [facility] 125 [place] [address] documented as of this encounter [...] documented as of this encounter Care Teams Analyst Sales Relationship Specialty Start Date End Date Alisa Kunz DO [address] [facility] 304 [place] [address] PCP - General Internal Medicine 03/13/21 Kodi Bustos, DO [address] [address] Surgeon Cardiothoracic Surgery 11/06/22 Sujit Arriola MD [address] [place] [address] Consulting Physician Pulmonary Disease 11/06/22 Sujit Reyes MD [address] [place] [address] Referring Physician 12/04/22 Patricia Yañez LPN [facility] TCM Nurse 08/25/24 10/17/24 Zee Lazar DO [address] [place] [address] Resident 09/08/24 documented as of this encounter
--- OUTSIDE RECORDS SUMMARY | 2024-11-02 13:09 | XMS_ITS | Encounter Summary ---
Author Organization [facility] Address [address] [place] [address] Care Team Providers Care Scrap Separator Name Role Phone Alisa Kunz DO Primary Care Provider Kodi Bustos DO Unavailable [phone] Sujit Arriola MD Unavailable [phone] Sujit Reyes MD Unavailable [phone] Patricia Yañez LPN Unavailable Unavailab Zee Lr DO Unavailable [phone] Encounter Details Date Type Department Care Team (Late st Contact Info) Description 09/06/2024 Telephone [facility] Medicine Specialties [address] [place] [address] [place] [address] Social History Tobacco Use Types Packs/Day Years [...] you attend [facility] or [employer] services? 1 to 4 times [...] Recorded Patient Health Questionnaire-2 Score 0 09/08/2024 [facility] of Occupat ional Health - Occupational Stress [...] drink first t anselmo in the morning (EYE-REFERRAL RN) to steady your nerves or to get rid of a hangover? 0 08/14/2024 CAGE Questionnaire Score 0 025 Utilities Answer Date Recorded In the past 12 months has th e [employer], gas, oil, or water company threatened to [...] speak to someone in the meantime CB: [phone] documented in this encounter Plan of Treatment Upcoming Encounters Date Type Department Care Team (Late st Contact Info) Description 12/06/2024 11:20 AM EDT Office Visit [facility] Internal Medicine [address] 3rd [place] [address] Alisa Kunz, DO [address] [facility] 304 [place] [address] 12/23/2024 4:00 PM EDT Office Visit [facility] Medicine Specialties [address], [address] [place] [address] Lavern Shoemaker MD [address] [place] [id number] 02/02/2025 8:40 AM EST Office Visit [facility] Internal Medicine [address], 3rd [place] [address] Alisa Kunz, DO [address] [address] 02/09/2025 12:20 PM EST Office Visit [facility] Endocrinology [address] [place] [address] Anne-Marie Kolb L, CAFETERIA AIDE [address] [place] [address] documented as of this encounter [...] documented as of this encounter Care Teams Scrap Separator Relationship Specialty Start Date End Date Alisa Kunz DO [address] [place] [address] PCP - General Internal Medicine 03/13/21 Kodi Bustos DO [address] [phone] Surgeon Cardiothoracic Surgery 11/06/22 Sujit Arriola MD [address] [place] [address] Consulting Physician Pulmonary Disease 11/06/22 Sujit Reyes MD [address] [place] [address] Referring Physician 12/04/22 Patricia Yañez LPN [facility] TCM Nurse 08/25/24 10/17/24 Zee Lazar DO [address] [place], [place] [phone] Resident 09/08/24 documented as of this encounter
--- OUTSIDE RECORDS SUMMARY | 2024-11-02 13:09 | XMS_ITS | Encounter Summary ---
Author Organization Healthcare Address [address] [place] [address] Care Team Providers Care Computer Systems Security Analyst Name Role Phone Alisa Kunz DO Primary Care Provider [phone] Kodi Bustos DO Unavailable [phone] Sujit Arriola MD Unavailable [phone] Sujit Reyes MD Unavailable [phone] Patricia Yañez LPN Unavailable Unavailab Zee Lr DO Unavailable [phone] Encounter Details Date Type Department Care Team [...] Recorded Patient Health Questionnaire-2 Score 0 09/08/2024 [facility] of Occupat ional [facility] - Occupational Stress Questionnaire Answer [...] drink first t anselmo in the morning (EYE-SOIL TESTER) to steady your nerves or to get rid of a hangover? 0 08/14/2024 CAGE Questionnaire Score 0 025 Utilities Answer Date Recorded In the past 12 months has th e [employer], gas, oil, or water company threatened [...] Description 12/06/2024 11:20 AM EDT Office Visit [facility] Internal Medicine [address], 3rd [place] [address] Alisa Kunz, DO [address] [place] [address] 12/23/2024 4:00 PM EDT Office Visit [facility] Medicine Specialties [address] 2nd [place] [address] Lavern Shoemaker MD [address] [place] [id number] 02/02/2025 8:40 AM EST Office Visit [facility] Internal Medicine [address], 3rd [place] [address] Alisa Kunz, [address] [place] [address] 02/09/2025 12:20 PM EST Office Visit [facility] Endocrinology [address] [place] [address] Anne-Marie Kolb, DRIER HELPER [address] [facility] 125 [place] [address] documented as of this encounter [...] as of this encounter Care Teams Computer Systems Security Analyst Relationship Specialty Start Date End Date Alisa Kunz, [address] [facility] [address] [place] [address] PCP - General Internal Medicine 03/13/21 Kodi Bustos DO [address] [place] [address] Surgeon Cardiothoracic Surgery 11/06/22 Sujit Arriola MD [address] [place] [address] Consulting Physician Pulmonary Disease 11/06/22 Sujit Reyes MD [address] [place] [address] Referring Physician 12/04/22 Patricia Yañez LPN [facility] TCM Nurse 08/25/24 10/17/24 Zee Lazar DO [address] [place] [address] Resident 09/08/24 documented as of this encounter
--- OUTSIDE RECORDS SUMMARY | 2024-11-02 13:09 | XMS_ITS | Encounter Summary ---
Author Organization Healthcare Address [address] [place] [address] Care Team Providers Care Lime Burner Name Role Phone Ze, Alisa Wild DO Primary Care Provider Kodi Bustos DO Unavailable [phone] Sujit Arriola MD Unavailable [phone] Sujit Reyes MD Unavailable [phone] Patricia Yañez LPN Unavailable Unavailab le Reason for Visit * Reason Comments Med Refill Encounter Details Date Type Department Care Team (Late st Contact Info) Description 09/06/2024 [facility] [address] [place] [address] Anne-Marie Kolb, PARI MUTUEL CLERK 2[address] [facility] [address] [place] [address] Type 1 diabetes mellitus with [...] living in a long-term (including now)? No 08/25/2024 CAGE ASSESSMENT Answer [...] drink first t anselmo in the morning (EYE-TECHNICAL SOLUTION ARCHITECT) to steady your nerves or to get rid of a hangover? 0 08/14/2024 CAGE Questionnaire Score 0 025 Utilities Answer Date Recorded In the past 12 months has th e [employer], gas, oil, or water [employer] threatened to shut off services in your [...] Description 12/06/2024 11:20 AM EDT Office Visit [facility] Internal Medicine [address] 3rd [place] [address] Alisa Kunz, [address] [place] [address] 12/23/2024 4:00 PM EDT Office Visit [facility] Medicine Specialties [address] [place] [address] Lavern Shoemaker MD [address] [place] [address] 02/02/2025 8:40 AM EST Office Visit [facility] Internal Medicine [address], 3[address] [place] [address] Alisa Kunz DO [address] [place] [address] 02/09/2025 12:20 PM EST Office Visit [facility] Endocrinology [address] [place] [address] Anne-Marie Kolb L, PARI MUTUEL CLERK 2195 [facility] 125 [place] [address] documented as of this encounter [...] documented as of this encounter Care Teams Lime Burner Relationship Specialty Start Date End Date Alisa Kunz DO [address] [place] [address] PCP - General Internal Medicine 03/13/21 Kodi Bustos, [address] [place] [address] Surgeon Cardiothoracic Surgery 11/06/22 uSjit Arriola MD [address] [place] [address] Consulting Physician Pulmonary Disease 11/06/22 Sujit Reyes MD [address] [place] [address] Referring Physician 12/04/22 Patricia Yañez LPN [facility] TCM Nurse 08/25/24 10/17/24 documented as of this encounter
--- OUTSIDE RECORDS SUMMARY | 2024-11-02 13:09 | XMS_ITS | Encounter Summary ---
Author Organization [facility] Address [address] [place] [address] Care Team Providers Care Back Up Scan Coordinator Name Role Phone Alisa Kunz DO Primary Care Provider Kodi Bustos DO Unavailable [phone] Sujit Arriola MD Unavailable [phone] Sujit Reyes MD Unavailable [phone] Patricia Yañez LPN Unavailable Unavailab le Reason for Visit * Reason Onset Date Comments Med Refill 09/06/2024 Encounter Details Date Type Department Care Team (Late st Contact Info) Description 09/06/2024 Refill Janette Suazo [facility] Endocrinology [address] [place] [address] Anne-Marie Kolb, LIGHT ADJUSTER 2[address] [facility] [address] [place] [address] Type 1 diabetes mellitus with [...] Recorded Patient Health Questionnaire-2 Score 0 08/04/2024 [facility] of Occupat ional Health - Occupational Stress [...] drink first t anselmo in the morning (EYE-TEA TASTER) to steady your nerves or to get rid of a hangover? 0 08/14/2024 CAGE Questionnaire Score 0 025 Utilities Answer Date Recorded In the past 12 months has th [employer], gas, oil, or water [employer] threatened to shut off services in your [...] Description 12/06/2024 11:20 AM EDT Office Visit [facility] Internal Medicine [address], [address]rd [place] [address] Alisa Kunz, DO [address] [place] [address] 12/23/2024 4:00 PM EDT Office Visit [facility] Medicine Specialties [address], [address]nd [place] [address] Lavern Shoemaker MD [address] [place], [place] [phone] 02/02/2025 8:40 AM EST Office Visit [facility] Internal Medicine [address], [address]rd [place] [address] Alisa Kunz, DO [address] [place] [address] 02/09/2025 12:20 PM EST Office Visit [facility] Endocrinology [address] [place] [address] Anne-Marie Kolb, LIGHT ADJUSTER 2[address] [facility] 125 [place] [address] documented as of this encounter [...] documented as of this encounter Care Teams Back Up Scan Coordinator Relationship Specialty Start Date End Date Alisa Kunz DO [address] [place] [address] PCP - General Internal Medicine 03/13/21 Kodi Bustos, DO [address] [place] [address] Surgeon Cardiothoracic Surgery 11/06/22 Sujit Arriola MD [address] [place] [address] Consulting Physician Pulmonary Disease 11/06/22 Sujit Reyes MD [address] [facility] [address] [place] [address] Referring Physician 12/04/22 Patricia Yañez LPN [facility] TCM Nurse 08/25/24 10/17/24 documented as of this encounter
--- OUTSIDE RECORDS SUMMARY | 2024-11-02 13:09 | XMS_ITS | Encounter Summary ---
Author Organization Healthcare Address [address] [place] [address] Care Team Providers Care Office Technologist Name Role Phone ZeAlisa willett Torri DO Primary Care Provider [phone] Kodi Bustos DO Unavailable [phone] Sujit Arriola MD Unavailable [phone] Sujit Reyes MD Unavailable [phone] Patricia Yañez LPN Unavailable Unavailab Zee Lr DO Unavailable [phone] Reason for Referral * Consultation (Routine) - Authorized Specialty Diagnoses / Procedures Referred By Contac t Referred To Contact Pulmonary Disease Diagnoses Pleural effusion on right Art Olmos MD [address] [place] [address] Phone: tel: fax: Referral ID Status Reason Start Date Expiration Date Visits Requested Visits Authorized [id number] Authorized Specialty Services Required 09/08/2024 03/10/2026 1 1 Encounter Details Date Type Department Care Team (Late st Contact Info) Description 09/08/2024 [facility] Only [facility] Medicine Specialties [address]nd [place] [address] Lavern Shoemaker MD [address] [place] [address] Pleural effusion on right (Primary Dx) Social [...] Recorded Patient Health Questionnaire-2 Score 0 09/08/2024 [facility] of Occupat ional Health - Occupational Stress [...] living in a retirement (including now)? No 09/13/2024 CAGE ASSESSMENT Answer [...] first t anselmo in the morning (EYE-CHIEF MERCHANDISING OFFICER) to steady your nerves or to [...] [facility] Internal Medicine [address], [address]rd [place] [address] Alisa Kunz, DO [address] [facility] [address] [place] [address] 12/23/2024 4:00 PM EDT Office Visit [facility] Medicine Specialties [address] [place] [address] Lavern Shoemaker MD [address] [place], [place] [phone] 02/02/2025 8:40 AM EST Office Visit [facility] Internal Medicine [address], [address]rd [place] [address] Alisa Kunz, DO [address] [place] [address] 02/09/2025 12:20 PM EST Office Visit [facility] Endocrinology [address] [place] [address] Anne-Marie Kolb, LUSTERER [address] [place] [address] Scheduled Referrals Name Type Priority Associated Diagnoses [...] as of this encounter Care Teams Office Technologist Relationship Specialty Start Date End Date Alisa Kunz DO [address] [place] [address] PCP - General Internal Medicine 03/13/21 Kodi Bustos DO [address] [address] Surgeon Cardiothoracic Surgery 11/06/22 Sujit Arriola MD [address] [place] [address] Consulting Physician Pulmonary Disease 11/06/22 Sujit Reyes MD [address] [place] [address] Referring Physician 12/04/22 Patricia Yañez LPN [facility] TCM Nurse 08/25/24 10/17/24 Zee Lazar DO [address] [place], [place] [phone] Resident 09/08/24 documented as of this encounter
--- OUTSIDE RECORDS SUMMARY | 2024-11-02 13:10 | XMS_ITS | Encounter Summary ---
Author Organization Healthcare Address [address] [place] [address] Care Team Providers Care Pickle Maker Name Role Phone Alisa Kunz DO Primary Care Provider [phone] Kodi Bustos DO Unavailable [phone] Sujit Arriola MD Unavailable [phone] Sujit Reyes MD Unavailable [phone] Patricia Yañez LPN Unavailable Unavailab Zee Lr DO Unavailable [phone] Encounter Details Date Type Department Care Team [...] 09/08/2024 [facility] of Occupat ional [facility] - Occupational Stress Questionnaire Answer [...] drink first t anselmo in the morning (EYE-CAMP PROGRAM DIRECTOR) to steady your nerves or to [...] 1 Month) No 025 8:00 PM EDT Sofai Coronado, RN 2. Non-Specific Active Suici dillon Thoughts (Past 1 Month) No 09/11/2024 8:00 PM EDT Aimee Coronado, RN 6. Suicidal Behavior (Lifetime) No 8:00 PM EDT Sofia Coronado, RN documented as of this encounter Plan of Treatment Upcoming Encounters Date Type Department Care Team (Late st Contact Info) Description 12/06/2024 11:20 AM EDT Office Visit [facility] Internal Medicine [address] 3rd [place] [address] Alisa Kunz, DO [address] [place] [address] 12/23/2024 4:00 PM EDT Office Visit [facility] Medicine Specialties [address] [place] [address] Lavern Shoemaker MD [address] [place], [place] [phone] 02/02/2025 8:40 AM EST Office Visit [facility] Internal Medicine [address] 3rd [place] [address] Alisa Kunz DO [address] [place] [address] 02/09/2025 12:20 PM EST Office Visit [facility] Endocrinology [address] [place] [address] Anne-Marie Kolb L, FLIGHT ATTENDANT/INFLIGHT MANAGER 2[address] [facility] [address] [place] [address] documented as of this [...] documented as of this encounter Care Teams Pickle Maker Relationship Specialty Start Date End Date Alisa Kunz DO [address] [place] [address] PCP - General Internal Medicine 03/13/21 Kodi Bustos DO [address] [address] Surgeon Cardiothoracic Surgery 11/06/22 Sujit Arriola MD [address] [place] [address] Consulting Physician Pulmonary Disease 11/06/22 Sujit Reyes MD [address] [place] [address] Referring Physician 12/04/22 Patricia Yañez LPN [facility] TCM Nurse 08/25/24 10/17/24 Zee Lazar DO [address] [place] [address] Resident 09/08/24 documented as of this encounter
--- OUTSIDE RECORDS SUMMARY | 2024-11-02 13:10 | XMS_ITS | Encounter Summary ---
Author Organization [facility] Address [address] [place] [address] Care Team Providers Care Drone Operator Name Role Phone ZeAlisa willett Torri DO Primary Care Provider [phone] Kodi Bustos DO Unavailable [phone] Sujit Arriola MD Unavailable [phone] Sujit Reyes MD Unavailable [phone] Zee Lazar DO Unavailable [phone] Encounter Details Date Type Department Care Team [...] often do you attend chur ch or gnosticism services? 1 to 4 times per year [...] any time in the past 12 m [facility], were you homeless or living in [...] any time in the past 12 m [facility], were you homeless or living in [...] drink first t anselmo in the morning (EYE-PHARMACOGNOSY TEACHER) to steady your nerves or to get rid of a hangover? 0 08/14/2024 CAGE Questionnaire Score 0 025 Utilities Answer Date Recorded In the past 12 months has th e [employer], gas, oil, or water company threatened to [...] Description 12/06/2024 11:20 AM EDT Office Visit [facility] Internal Medicine [address], [address]rd [place] [address] Alisa Kunz, DO [address] [address] 12/23/2024 4:00 PM EDT Office Visit [facility] Medicine Specialties [address]nd [place] [address] Lavern Shoemaker MD [address] [id number] 02/02/2025 8:40 AM EST Office Visit [facility] Internal Medicine [address] 3rd [place] [address] Alisa Kunz, DO [address] [address] 02/09/2025 12:20 PM EST [facility] [address] [place] [address] Anne-Marie Kolb, DIRECTOR SAFETY [address] [place] [address] documented as of this encounter [...] documented as of this encounter Care Teams Drone Operator Relationship Specialty Start Date End Date Alisa Kunz DO [address] [place] [address] PCP - General Internal Medicine 03/13/21 Kodi Bustos, DO [address] [place] [phone] Surgeon Cardiothoracic Surgery 11/06/22 Sujit Arriola MD [address] [place] [address] Consulting Physician Pulmonary Disease 11/06/22 Sujit Reyes MD [address] [place] [address] Referring Physician 12/04/22 Zee Lazar DO [address] [place], [place] [id number] Resident 09/08/24 documented as of this encounter
--- OUTSIDE RECORDS SUMMARY | 2024-11-02 13:10 | XMS_ITS | Encounter Summary ---
Author Organization [facility] Address [address] [place] [address] Care Team Providers Care Non Destructive Tester Name Role Phone ZeNitin willettgricel Wild DO Primary Care Provider Kodi Bustos DO Unavailable [phone] Sujit Arriola MD Unavailable [phone] Sujit Reyes MD Unavailable [phone] Patricia Yañez MS SQL DBA Unavailable Unavailab Zee Lr DO Unavailable [phone] Encounter Details Date Type Department Care Team (Late st Contact Info) Description 09/03/2024 Telephone [facility] Endocrinology [address] [place] [address] Anne-Marie oKlb L, LAP WINDER [address] [facility] [address] [place] [address] Social History Tobacco Use Types [...] drink first t anselmo in the morning (EYE-REALTIME REPORTER) to steady your nerves or to get rid of a hangover? 0 08/14/2024 CAGE Questionnaire Score 0 025 Utilities Answer Date Recorded In the past 12 months has th [employer], gas, oil, or water [employer] threatened to shut off services in [...] she has been taking a supplement called [employer] with Cinanamon and Tumeric and other ingredients. [...] [facility] [address]rd [place] [address] Alisa Kunz, [address] [place] [address] 12/23/2024 4:00 PM EDT Office Visit [facility] Medicine Specialties [address] [place] [address] Lavern Shoemaker MD [address] [place] [address] 02/02/2025 8:40 AM EST Office Visit [facility] Internal Medicine [address]rd [place] [address] Alisa Kunz DO [address] [place] [address] 02/09/2025 12:20 PM EST Office Visit [facility] Endocrinology [address] [place] [address] Anne-Marie Kolb, LAP WINDER 2[address] [facility] [address] [place] [address] documented as of this encounter [...] documented as of this encounter Care Teams Non Destructive Tester Relationship Specialty Start Date End Date Alisa Kunz DO [address] [place] [address] PCP - General Internal Medicine 03/13/21 Kodi Bustos DO [address] [place] [phone] Surgeon Cardiothoracic Surgery 11/06/22 Sujit Arriola MD [address] [place] [address] Consulting Physician Pulmonary Disease 11/06/22 Sujit Reyes MD [address] [place] [address] Referring Physician 12/04/22 Patricia Yañez LPN [facility] TCM Nurse 08/25/24 10/17/24 Zee Lazar DO [address] [place] [address] Resident 09/08/24 documented as of this encounter
--- OUTSIDE RECORDS SUMMARY | 2024-11-02 13:10 | XMS_ITS | Encounter Summary ---
Author Organization [facility] Address [address] [place] [address] Care Team Providers Care Dental Services Director Name Role Phone Alisa Kunz DO Primary Care Provider [phone] Kodi Bustos DO Unavailable [phone] Sujit Arriola MD Unavailable [phone] Sujit Reyes MD Unavailable [phone] Patricia Yañez LPN Unavailable Unavailab le [...] Pleural effusion Alisa Kunz DO [address] [place] [address] Phone: tel: fax: Referral ID Status Reason Start Date Expiration Date V isits Requested Visits Authorized [id number] Closed Specialty Services Required 08/31/2024 03/02/[phone] Encounter Details Date Type Department Care Team (Late st Contact Info) Description 08/31/2024 Orders Only [facility] Internal Medicine [address] 3rd [place] [address] Nitin Kunzista Torri, [address] [place] [address] At high risk for falls [...] Recorded Patient Health Questionnaire-2 Score 0 08/04/2024 [facility] [place] [facility] - Occupational Stress Questionnaire Answer Date [...] drink first t anselmo in the morning (EYE-EXHAUSTER ENGINEER) to steady your nerves or to [...] [facility] [address] 3rd [place] [address] Alisa Kunz, DO [address] [place] [address] 12/23/2024 4:00 PM EDT Office Visit [facility] Medicine Specialties [address]nd [place] [address] Lavern Shoemaker MD [address] [place] [address] 02/02/2025 8:40 AM EST Office Visit [facility] Internal Medicine [address]rd [place] [address] Alisa Kunz, DO [address] [place] [address] 02/09/2025 12:20 PM EST Office Visit [facility]ocr[facility] [address] [place] [address] Anne-Marie Kolb, BASTER HAND 2[address] [facility] 125 [place] [address] Scheduled Referrals Name Type Priority Associated Diagnoses [...] documented as of this encounter Care Teams Dental Services Director Relationship Specialty Start Date End Date Alisa Kunz DO [address] [place] [address] PCP - General Internal Medicine 03/13/21 Kodi Bustos DO [address] [place] [address] Surgeon Cardiothoracic Surgery 11/06/22 Sujit Arriola MD [address] [place] [address] Consulting Physician Pulmonary Disease 11/06/22 Sujit Reyes MD [address] [place] [address] Referring Physician 12/04/22 Patricia Yañez LPN [facility] TCM Nurse 08/25/24 10/17/24 documented as of this encounter
--- OUTSIDE RECORDS SUMMARY | 2024-11-02 13:10 | XMS_ITS | Encounter Summary ---
Author Organization [facility] Address [address] [place] [address] Care Team Providers Care Optometry Teacher Name Role Phone Alisa Boyer DO Primary Care Provider [phone] Kodi Bustos DO Unavailable [phone] Sujit Arriola MD Unavailable [phone] Sujit Reyes MD Unavailable [phone] Zee Lazar DO Unavailable [phone] Reason for Visit * Reason Comments Med Refill Encounter Details Date Type Department Care Team (Late st Contact Info) Description 10/18/2024 Refill [facility] Internal Medicine [address]rd [place] [address] Alisa Boyer DO [address] [place] [address] Social History Tobacco Use Types [...] Recorded Patient Health Questionnaire-2 Score 0 09/08/2024 [facility] - [...] first t anselmo in the morning (EYE-DIRECTOR REVENUE) to steady your nerves or to get rid of a hangover? 0 08/14/2024 CAGE Questionnaire Score 0 025 Utilities Answer Date Recorded In the past 12 months has th [employer], gas, oil, or water [facility] threatened to shut off services in [...] recent hospitalization. She has an appointment with [place] to talk about a pleural drain on [...] Description 12/06/2024 11:20 AM EDT Office Visit [facility] Internal Medicine [address]rd [place] [address] Alisa Boyer DO [address] [place] [address] 12/23/2024 4:00 PM EDT [facility] [address]nd [place] [address] Lavern Shoemaker MD [address] [place] [address] 02/02/2025 8:40 AM EST Office Visit [facility] Internal Medicine [address], 3rd [place] [address] Alisa Boyer DO [address] [place] [address] 02/09/2025 12:20 PM EST Office Visit [facility] Endocrinology [address] [place] [address] Anne-Marie Kolb L, ACCOUNT TECHNICIAN [address] [place] [address] documented as of this encounter [...] documented as of this encounter Care Teams Optometry Teacher Relationship Specialty Start Date End Date Alisa Boyer DO [address] [place] [address] PCP - General Internal Medicine 03/13/21 Kodi Bustos DO [address] [place] [address] Surgeon Cardiothoracic Surgery 11/06/22 Sujit Arriola MD [address] [place] [address] Consulting Physician Pulmonary Disease 11/06/22 Sujit Reyes MD [address] [place] [address] Referring Physician 12/04/22 Zee Lazar DO [address] [place] [address] Resident 09/08/24 documented as of this encounter
--- OUTSIDE RECORDS SUMMARY | 2024-11-02 13:10 | XMS_ITS | Encounter Summary ---
Author Organization [facility] Address [address] [place] [address] Care Team Providers Care Radiator Specialist Name Role Phone ZeNitin willettgricel Wild DO Primary Care Provider Kodi Bustos DO Unavailable [phone] Sujit Arriola MD Unavailable [phone] Sujit Reyes MD Unavailable [phone] Patricia Yañez COMPENSATION INTERN Unavailable Unavailab Zee Lr DO Unavailable [phone] Encounter Details Date Type Department Care Team (Late st Contact Info) Description 09/02/2024 Telephone [facility] Endocrinology [address] [place] [address] Anne-Marie Kolb L, DIRECTOR STATISTICAL PROGRAMMING 2[address] [facility] [address] [place] [address] Social History Tobacco Use Types [...] any time in the past 12 m [facility], were you homeless or living [...] any time in the past 12 m [facility], were you homeless or living [...] drink first t anselmo in the morning (EYE-CONTROL SYSTEMS DEVELOPER) to steady your nerves or to get rid of a hangover? 0 08/14/2024 CAGE Questionnaire Score 0 025 Utilities Answer Date Recorded In the past 12 months has th [employer], gas, oil, or water [employer] threatened to shut off services in your [...] [facility] [address] 3rd [place] [address] Alisa Kunz DO [address] [place] [address] 12/23/2024 4:00 PM EDT Office [facility] Medicine Special[facility] [address]nd [place] [address] Lavern Shoemaker MD [address] [place], [place] [phone] 02/02/2025 8:40 AM EST Office Visit [facility] Internal Medicine [address] [place] [address] Alisa Kunz DO [address] [place] [address] 02/09/2025 12:20 PM EST Office Visit [facility] Endocrinology [address] [place] [address] Anne-Marie Kolb L, DIRECTOR STATISTICAL PROGRAMMING 2195 [facility] 125 [place] [address] documented as of this encounter [...] documented as of this encounter Care Teams Radiator Specialist Relationship Specialty Start Date End Date Alisa Kunz DO [address] [place] [address] PCP - General Internal Medicine 03/13/21 Kodi Bustos DO [address] [place] [address] Surgeon Cardiothoracic Surgery 11/06/22 Sujit Arriola MD [address] [place] [address] Consulting Physician Pulmonary Disease 11/06/22 Sujit Reyes MD [address] [place] [address] Referring Physician 12/04/22 Patricia Yañez LPN [facility] TCM Nurse 08/25/24 10/17/24 Zee Lazar DO [address] [place] [address] Resident 09/08/24 documented as of this encounter
--- OUTSIDE RECORDS SUMMARY | 2024-11-02 13:10 | XMS_ITS | Encounter Summary ---
Author Organization [facility] Address [address] [place] [address] Care Team Providers Care Structural Design Engineer Name Role Phone Alisa Kunz DO Primary Care Provider Kodi Bustos DO Unavailable [phone] Sujit Arriola MD Unavailable [phone] Sjuit Reyes MD Unavailable [phone] Patricia Yañez LPN Unavailable Unavailab Zee Lr DO Unavailable [phone] Encounter Details Date Type Department Care Team (Late st Contact Info) Description 09/02/2024 Telephone [facility] Internal Medicine [address] [place] [address] Alisa Kunz DO [address] [place] [address] Social History Tobacco Use Types [...] drink first t anselmo in the morning (EYE-HANDBOOK WRITER) to steady your nerves or to get rid of a hangover? 0 08/14/2024 CAGE Questionnaire Score 0 025 Utilities Answer Date Recorded In the past 12 months has th [employer], gas, oil, or water [employer] threatened to shut off services in your [...] Clinical Concern/Question Reason for Call: Cece from [facility] calling to let PCP they are starting the patient on Friday and wanted her to be aware. Stated if you have any questions to call back at [phone]. Thank you! Best contact number: [phone] Optimal time of day to reach caller: ANYTIME Additional comments/information from caller: None Note: Please do not reply to this message. Follow-up communication and further actions as a result of this message need to be communicated with the patient directly, if the patient is not active onMyChart. If the patient is active on MyChart, they will receive notification of the communication/outcome via [employer]. documented in this encounter Plan of Treatment Upcoming Encounters Date Type Department Care Team (Late st Contact Info) Description 12/06/2024 11:20 AM EDT Office Visit [facility] Internal Medicine [address] [place] [address] Alisa Kunz DO [address] [address] 12/23/2024 4:00 PM EDT Office Visit [facility] Medicine Specialties [address] [place] [address] Lavern Shoemaker MD [address] [place] [address] 02/02/2025 8:40 AM EST Office Visit [facility] Internal Medicine [address] [place] [address] Alisa Kunz, [address] [place] [address] 02/09/2025 12:20 PM EST Office Visit [facility] Endocrinology [address] [place] [address] [place] Anne-Marie L, INTERNET MANAGER [address] [place] [address] documented as of this encounter [...] documented as of this encounter Care Teams Structural Design Engineer Relationship Specialty Start Date End Date Alisa Kunz DO [address] [place] [address] PCP - General Internal Medicine 03/13/21 Kodi Bustos DO [address] [place] [address] Surgeon Cardiothoracic Surgery 11/06/22 Sujit Arriola MD [address] [place] [address] Consulting Physician Pulmonary Disease 11/06/22 Sujit Reyes MD [address] [place] [address] Referring Physician 12/04/22 Patricia Yañez LPN [facility] TCM Nurse 08/25/24 10/17/24 Zee Lazar DO [address] [place] [address] Resident 09/08/24 documented as of this encounter
--- OUTSIDE RECORDS SUMMARY | 2024-11-02 13:10 | XMS_ITS | Encounter Summary ---
Author Organization [facility] Address [address] [place] [address] Care Team Providers Care Rope Rider Name Role Phone Alisa Kunz Primary Care Provider [phone] Reason for Visit * Reason Onset Date Comments - CALL BACK 08/31/2024 Encounter Details Date Type Department Care Team (Late st Contact Info) Description 08/31/[address] [facility] CARDIOLOGY [address] [facility] [address] [place] [address] Naveen Velasquez MD [address] [facility] [address] [place] [id number] - CALL BACK Social History Tobacco Use [...] 9:45 AM EDT Tanya Boyce RN * [place]ver Suicide Severity Rating Scale (Screener/Recent Self-Report) Question [...] Felipe Relationship: Self Best call back number: [phone] What is the best time to reach [...] HOSPITAL CARDIOLOGY [address] [place] [address] [place] [address] Sujit Reyes MD [address] [place], [place] [id number] 01/19/2025 1:45 PM EST Office Visit [facility] CARDIOLOGY [address] [place] [address] Naveen Velasquez MD [address] [place] [address] documented as of this encounter Visit Diagnoses Not on filedocumented in this encounter Care Teams Rope Rider Relationship Specialty Start Date End Date Alisa Kunz DO [address] [id number] PCP - General Internal Medicine 04/26/21 documented as of this encounter
--- OUTSIDE RECORDS SUMMARY | 2024-11-02 13:10 | XMS_ITS | Encounter Summary ---
Author Organization [facility] Address [address] [place] [address] Care Team Providers Care Deputy Administrator Name Role Phone Alisa Kunz DO Primary Care Provider Kodi Bustos DO Unavailable [phone] Sujit Arriola MD Unavailable [phone] Sujit Reyes MD Unavailable [phone] Patricia Yañez LPN Unavailable Unavailab Zee Lr DO Unavailable [phone] Reason for Visit * Reason Comments Med Refill Encounter Details Date Type Department Care Team (Late st Contact Info) Description 10/05/2024 Refill [facility] Internal Medicine [address]rd [place] [address] Alisa Kunz DO [address] [place] [address] Social History Tobacco Use Types [...] How often do you attend chur or christianity services? 1 to 4 times [...] Recorded Patient Health Questionnaire-2 Score 0 09/08/2024 [facility] of Occupat ional [...] drink first t anselmo in the morning (EYE-MARINE PROPULSION TECHNICIAN) to steady your nerves or to get rid of a hangover? 0 08/14/2024 CAGE Questionnaire Score 0 025 Utilities Answer Date Recorded In the past 12 months has th e [employer], gas, oil, or water [employer] threatened to shut off services in your [...] Description 12/06/2024 11:20 AM EDT Office Visit [facility] Internal Medicine [address]rd [place] [address] Alisa Kunz DO [address] [place] [address] 12/23/2024 4:00 PM EDT Office Visit [facility] Medicine Specialties [address] [place] [address] Lavern Shoemaker MD [address] [id number] 02/02/2025 8:40 AM EST Office Visit [facility] Internal Medicine [address] [place] [address] Alisa Kunz DO [address] [place] [address] 02/09/2025 12:20 PM EST Office Visit [facility] Endocrinology [address] [place] [address] Anne-Marie Kolb, PLANNING DIVISION SUPERINTENDENT 2[address] [facility] 125 [place] [address] documented as of this encounter [...] documented as of this encounter Care Teams Deputy Administrator Relationship Specialty Start Date End Date Alisa Kunz DO [address] [place] [address] PCP - General Internal Medicine 03/13/21 Kodi Bustos DO [address] [address] Surgeon Cardiothoracic Surgery 11/06/22 Sujit Arriola MD [address] [place] [address] Consulting Physician Pulmonary Disease 11/06/22 Sujit Reyes MD [address] [place] [address] Referring Physician 12/04/22 Patricia Yañez LPN [facility] TCM Nurse 08/25/24 10/17/24 Zee Lazar DO [address] [place] [address] Resident 09/08/24 documented as of this encounter
--- OUTSIDE RECORDS SUMMARY | 2024-11-02 13:10 | XMS_ITS | Encounter Summary ---
Author Organization Healthcare Address [address] [place] [address] Care Team Providers Care Cable Assembler Name Role Phone Alisa Kunz DO Primary Care Provider [phone] Kodi Bustos DO Unavailable [phone] Sujit Arriola MD Unavailable [phone] Sujit Reyes MD Unavailable [phone] Patricia Yañez LPN Unavailable Unavailab Zee Lr DO Unavailable [phone] Encounter Details Date Type Department Care Team [...] 09/08/2024 [facility] of Occupat ional [facility] - Occupational Stress Questionnaire Answer [...] drink first t anselmo in the morning (EYE-AUDITING CONTROL CLERK) to steady your nerves or to get rid of a hangover? 0 08/14/2024 CAGE Questionnaire Score 0 025 Utilities Answer Date Recorded In the past 12 months has th e [employer], gas, oil, or water [employer] threatened to shut off services in your [...] Description 12/06/2024 11:20 AM EDT Office Visit [facility] Medicine [address], [address]rd [place] [address] Alisa Kunz, DO [address] [place] [address] 12/23/2024 4:00 PM EDT Office Visit [facility] Medicine Specialties [address], [address]nd [place] [address] Lavern Shoemaker MD [address] [id number] 02/02/2025 8:40 AM EST Office Visit [facility] [address] 3rd [place] [address] Alisa Kunz DO [address] [place] [address] 02/09/2025 12:20 PM EST Office Visit [facility] Endocrinology [address] [place] [address] Anne-Marie Kolb L, COMPUTATIONAL CHEMIST 2[address] [facility] 125 [place] [address] documented as of this encounter [...] documented as of this encounter Care Teams Cable Assembler Relationship Specialty Start Date End Date Alisa Kunz DO [address] [place] [address] PCP - General Internal Medicine 03/13/21 Kodi Bustos DO [address] [place] [phone] Surgeon Cardiothoracic Surgery 11/06/22 Sujit Arriola MD [address] [place] [address] Consulting Physician Pulmonary Disease 11/06/22 Sujit Reyes MD [address] [place] [address] Referring Physician 12/04/22 Patricia Yañez LPN [facility] TCM Nurse 08/25/24 10/17/24 Zee Lazar DO [address] [place] [address] Resident 09/08/24 documented as of this encounter
--- OUTSIDE RECORDS SUMMARY | 2024-11-02 13:10 | XMS_ITS ---
Author Organization [facility] Address [address] [place] [address] Care Team Providers Care Telegraphic Typewriter Installer Name Role Phone Alisa Kunz Torri DO Primary Care Provider [phone] Kodi Bustos DO Unavailable [phone] Sujit Arriola MD Unavailable [phone] Sujit Reyes MD Unavailable [phone] Zee Lazar DO Unavailable [phone] Transitional Care Management Status:Closed (Closed) Start date:09/17/2024 Enrollment date:09/17/2024 Enrollment reason:Identified using hospital discharge data End date:10/17/2024 Close reason:Patient graduated Overview This episode type is for outpatient care managers enrolling patients in the [facility] Transitional Care Management program. Continued Care and Services Coordination
--- OUTSIDE RECORDS SUMMARY | 2024-11-02 13:10 | XMS_ITS | Encounter Summary ---
Author Organization Healthcare Address [address] [place] [address] Care Team Providers Care Structural Steel Ironworker Name Role Phone Alisa Kunz DO Primary Care Provider [phone] Kodi Bustos DO Unavailable [phone] Sujit Arriola MD Unavailable [phone] Sujit Reyes MD Unavailable [phone] Patricia Yañez LPN Unavailable Unavailab Zee Lr DO Unavailable [phone] Encounter Details Date Type Department Care Team (Late st Contact Info) Description 09/09/2024 Telephone [facility] Medicine Specialties [address], [address] [place] [address] Shannen Emmanuel RN CH-VASCULAR & INTERVENTIONAL RADIOLOGY [...] 08/30/2022 How often do you attend [facility] or sikh services? 1 to 4 times [...] Recorded Patient Health Questionnaire-2 Score 0 09/08/2024 [facility] [place] of Occupat ional Health - Occupational Stress [...] drink first t anselmo in the morning (EYE-DRAWBENCH OPERATOR HELPER) to steady your nerves or to [...] Description 12/06/2024 11:20 AM EDT Office Visit [facility] Internal Medicine [address], [address]rd [place] [address] Alisa Kunz, DO [address] [place] [address] 12/23/2024 4:00 PM EDT Office Visit [facility] Medicine Specialties [address], [address] [place] [address] Lavern Shoemaker MD [address] [place], [place] [id number] 02/02/2025 8:40 AM EST Office Visit [facility] Internal Medicine [address], 3rd [place] [address] Alisa Kunz, DO [address] [place] [address] 02/09/2025 12:20 PM EST Office Visit [facility] Endocrinology [address] [place] [address] Anne-Marie Kolb L, TRANSFER TABLE OPERATOR 2195 [facility] 125 [place] [address] documented as of this encounter Visit Diagnoses [...] as of this encounter Care Teams Structural Steel Ironworker Relationship Specialty Start Date End Date Alisa Kunz DO [address] [place] [address] PCP - General Internal Medicine 03/13/21 Kodi Bustos, DO [address] [address] Surgeon Cardiothoracic Surgery 11/06/22 Sujit Arriola MD [address] [place] [address] Consulting Physician Pulmonary Disease 11/06/22 Sujit Reyes MD [address] [place] [address] Referring Physician 12/04/22 Patricia Yañez LPN [facility] TCM Nurse 08/25/24 10/17/24 Zee Lazar DO [address] [place], [place] [phone] Resident 09/08/24 documented as of this encounter
--- OUTSIDE RECORDS SUMMARY | 2024-11-02 13:10 | XMS_ITS | Encounter Summary ---
Author Organization Healthcare Address [address] [place] [address] Care Team Providers Care Technology Director Name Role Phone Alisa Kunz DO Primary Care Provider Kodi Bustos DO Unavailable [phone] Sujit Arriola MD Unavailable [phone] Sujit Reyes MD Unavailable [phone] Patricia Yañez LPN Unavailable Unavailab Zee Lr DO Unavailable [phone] Encounter Details Date Type Department Care Team [...] [facility] of Occupat ional [place] [...] drink first t anselmo in the morning (EYE-BLUEPRINT ASSEMBLER) to steady your nerves or to [...] Description 12/06/2024 11:20 AM EDT Office Visit [facility] Internal Medicine [address], [address] [place] [phone] Alisa Kunz, DO [address] [address] 12/23/2024 4:00 PM EDT Office Visit [facility] Medicine Specialties [address] [place] [address] Lavern Shoemaker MD [address] [place] [address] 02/02/2025 8:40 AM EST Office Visit [facility] Internal Medicine [address], [address] [place] [address] Alisa Kunz, DO [address] [place] [address] 02/09/2025 12:20 PM EST Office [facility] Endocrinology [address] [place] [address] Cortes Anne-Marie Torri, ELDER COUNSELOR [address] [place] [address] documented as of this encounter [...] as of this encounter Care Teams Technology Director Relationship Specialty Start Date End Date Alisa Kunz DO [address] [place] [address] PCP - General Internal Medicine 03/13/21 Kodi Bustos DO [address] [address] Surgeon Cardiothoracic Surgery 11/06/22 Sujit Arriola MD [address] [place] [address] Consulting Physician Pulmonary Disease 11/06/22 Sujit Reyes MD [address] [place] [address] Referring Physician 12/04/22 Patricia Yañez, FOUNTAIN BRUSH ASSEMBLER [facility] TCM Nurse 08/25/24 10/17/24 Zee Lazar DO [address] [place] [address] Resident 09/08/24 documented as of this encounter
--- OUTSIDE RECORDS SUMMARY | 2024-11-02 13:10 | XMS_ITS | Encounter Summary ---
Author Organization [facility] Address [address] [place] [place] [address] Care Team Providers Care Insurance Examining Clerk Name Role Phone Jackson Malave MD Primary Care Provider [phone] Alisa Kunz DO Primary Care Provider [phone] Anu Sen RN Unavailable [phone] HatLaura nvaas CIGARETTE PACKING MACHINE OPERATOR Unavailable Unavailable Balwinder Vale Unavailable Unavailable Kodi Bustos DO Unavailable [phone] Sujit Arriola MD Unavailable [phone] HatLaura navas LPN Unavailable Unavailable Sujit Reyes MD Unavailable [phone] Zully Caldwell LPN Unavailable Unavailable HatLaura navas LPN Unavailable Unavailable HatLaura navas LPN Unavailable Unavailable Tanya Powell Unavailable [phone] Sarah Reyes CIGARETTE PACKING MACHINE OPERATOR Unavailable Unavailable Ekaterina Gómez Unavailable Unavailable Zully Caldwell LPN Unavailable Unavailable Ekaterina Gómez Unavailable Unavailable Patricia Yañez CIGARETTE PACKING MACHINE OPERATOR Unavailable Unavailab Zee Lr DO Unavailable [phone] Reason for Visit * Reason Comments Med Refill Encounter Details Date Type Department Care Team (Late st Contact Info) Description 02/12/2021 Refill [facility] Internal Medicine [address], [address]rd [place] [address] Jackson Malave MD [address] [place] [id number] Social History Tobacco Use Types Packs/Day Years [...] Description 12/06/2024 11:20 AM EDT Office Visit [facility] Internal Medicine [address], 3rd [place] [address] Alisa Kunz, [address] [place] [address] 12/23/2024 4:00 PM EDT Office Visit [facility] Medicine Specialties [address], [address]nd [place] [address] Lavern Shoemaker MD 800 [place] [address] 02/02/2025 8:40 AM EST Office Visit [facility] Internal Medicine [address], 3rd [place] [address] Alisa Kunz, DO [address] [place] [address] 02/09/2025 12:20 PM EST Office Visit [facility] Endocrinology [address] [place] [address] Anne-Marie Kolb, STONE SETTER [address] [place] [address] documented as of this encounter [...] as of this encounter Care Teams Insurance Examining Clerk Relationship Specialty Start Date End Date Jackson Malave MD [address] [place] [address] PCP - General 07/21/20 03/12/21 Alisa Kunz, DO [address] [place] [address] PCP - General Internal Medicine 03/13/21 Anu Sen RN VALUE-BASED TRANSFORMATION PROGRAM [place] Registered Nurse Internal Medicine 08/22/21 09/24/21 Laura Albright LPN VALUE-BASED [place] [address] TCM Nurse 08/30/22 09/27/22 Balwinder Vale [address] [place] [address] Community Health Worker Structural Fitter 08/30/22 09/06/22 Kodi Bustos, DO [address] [phone] Surgeon Cardiothoracic Surgery 11/06/22 Sujit Arriola MD [address] [place] [address] Consulting Physician Pulmonary Disease 11/06/22 Laura Albright LPN VALUE-BASED [place] [address] TCM Nurse 12/02/22 01/01/23 Sujit Reyes MD [address] [place] [address] Referring Physician 12/04/22 Zully Caldwell LPN VALUE-BASED [place] [address] TCM Nurse 02/03/23 03/05/23 Laura Albright LPN VALUE-BASED [place] [address] TCM Nurse 08/05/23 09/04/23 Laura Albright LPN VALUE-BASED [place] [address] TCM Nurse 02/17/24 03/18/24 Tanya Powell [address] [place] [address] [address] [place] [address] Registered Nurse 04/02/24 07/01/24 Sarah Reyes LPN TCM Nurse 05/27/24 06/26/24 Ekaterina Gómez Event Representative Structural Fitter 07/14/24 07/14/24 Zully Caldwell LPN VALUE-BASED [place] [address] TCM Nurse 07/16/24 08/15/24 Ekaterina Gómez Event Representative Structural Fitter 08/16/24 08/16/24 Patricia Yañez LPN [facility] TCM Nurse 08/25/24 10/17/24 Zee Lazar DO [address] [place] [address] Resident 09/08/24 documented as of this encounter
--- OUTSIDE RECORDS SUMMARY | 2024-11-02 13:10 | XMS_ITS | Encounter Summary ---
Author Organization Healthcare Address [address] [place] [address] Care Team Providers Care Driving Teacher Name Role Phone Alisa Kunz DO Primary Care Provider Kodi Bustos DO Unavailable [phone] Sujit Arriola MD Unavailable [phone] Sujit Reyes MD Unavailable [phone] Zee Lazar DO Unavailable [phone] Encounter Details Date Type Department Care Team (Late st Contact Info) Description 10/18/2024 Telephone [facility] Internal Medicine [address]rd [place] [address] Alisa Kunz DO [address] [place] [address] Social History Tobacco Use Types [...] any time in the past 12 m [facility], were you homeless or living in [...] any time in the past 12 m [facility], were you homeless or living in [...] drink first t anselmo in the morning (EYE-ADMISSION NURSE) to steady your nerves or to get rid of a hangover? 0 08/14/2024 CAGE Questionnaire Score 0 025 Utilities Answer Date Recorded In the past 12 months has th [employer], gas, oil, or water company threatened to [...] good. Thank you!! * Telephone Encounter - lAisa Kunz DO - 10/18/2024 6:16 PM EDT Spoke with Michelle: Technical difficulties with the [employer], she thinks may be due to no WiFi connection: She was on the video for about 40 minutes, it did not connect on our end, marked as no-show. Overall she is feeling better after her most recent hospitalization. She has an appointment with [facility] to talk about a pleural drain on [...] AM as an overbook for follow-up [facility] * Telephone Encounter - Alisa Kunz DO [...] on until after 8. Best contact number: [phone] (mobile) Optimal time of day to reach caller: ANYTIME Additional comments/information from caller: THOMPSON Note: Please do not reply to this message. Follow-up communication and further actions as a result of this message need to be communicated with the patient directly, if the patient is not active onMyChart. If the patient is active on MyChart, they will receive notification of the communication/outcome via [email or web address]. documented in this encounter Plan of Treatment Upcoming Encounters Date Type Department Care Team (Late st Contact Info) Description 12/06/2024 11:20 AM EDT Office Visit [facility] Internal Medicine [address]rd [place] [address] Alisa Kunz, DO [address] [place] [address] 12/23/2024 4:00 PM EDT Office Visit [facility] Medicine Specialties [address]nd [place] [address] Lavern Shoemaker MD [address] [place], [place] [phone] 02/02/2025 8:40 AM EST Office Visit [facility] Internal Medicine [address], [address]rd [place] [address] Alisa Kunz, DO [address] [place] [address] 02/09/2025 12:20 PM EST [facility] [address] [place] [address] Anne-Marie Kolb, TECHNOLOGY INTERN [address] [facility] 125 [place] [address] documented as of this encounter Visit Diagnoses [...] documented as of this encounter Care Teams Driving Teacher Relationship Specialty Start Date End Date Alisa Kunz DO [address] [place] [address] PCP - General Internal Medicine 03/13/21 Kodi Bustos DO [address] [address] Surgeon Cardiothoracic Surgery 11/06/22 Sujit Arriola MD [address] [place] [address] Consulting Physician Pulmonary Disease 11/06/22 Sujit Reyes MD [address] [place] [address] Referring Physician 12/04/22 Zee Lazar DO [address] [place], [place] [phone] Resident 09/08/24 documented as of this encounter
--- OUTSIDE RECORDS SUMMARY | 2024-11-02 13:10 | XMS_ITS | Encounter Summary ---
Author Organization Healthcare Address [address] [place] [address] Care Team Providers Care Gang Pusher Name Role Phone Alisa Kunz DO Primary Care Provider [phone] Kodi Bustos DO Unavailable [phone] Sujit Arriola MD Unavailable [phone] Sujit Reyes MD Unavailable [phone] Patricia Yañez LPN Unavailable Unavailab Zee Lr DO Unavailable [phone] Encounter Details Date Type Department Care Team (Late st Contact Info) Description 10/14/2024 Results [facility] Medicine Specialties [address]nd [place] [address] Cristian Zimmer MD [address] [place] [address] Social History Tobacco Use Types [...] [facility] of Occupat ional [facility] [place] [facility] - Occupational Stress Questionnaire Answer Date [...] drink first t anselmo in the morning (EYE-CAFETERIA TEAM LEADER) to steady your nerves or to get rid of a hangover? 0 08/14/2024 CAGE Questionnaire Score 0 025 Utilities Answer Date Recorded In the past 12 months has th e [employer], gas, oil, or water company threatened to [...] 12/06/2024 11:20 AM EDT Office Visit [facility] Internal Medicine [address] 3rd [place] [address] Alisa Kunz, DO [address] [place] [address] 12/23/2024 4:00 PM EDT Office Visit [facility] Medicine Specialties [address] [place] [address] Lavern Shoemaker MD [address] [place] [address] 02/02/2025 8:40 AM EST Office Visit [facility] Internal Medicine [address]rd [place] [address] Alisa Kunz, DO [address] [place] [address] 02/09/2025 12:20 PM EST [facility] [address] [place] [address] Anne-Marie Kolb L, ORTHOTICS PROSTHETICS TECHNICIAN 2[address] [facility] 125 [place] [address] documented as of this encounter Visit Diagnoses [...] documented as of this encounter Care Teams Gang Pusher Relationship Specialty Start Date End Date Alisa Kunz DO [address] [place] [address] PCP - General Internal Medicine 03/13/21 Kodi Bustos DO [address] [address] Surgeon Cardiothoracic Surgery 11/06/22 Sujit Arriola MD [address] [facility] [address] [place] [address] Consulting Physician Pulmonary Disease 11/06/22 Sujit Reyes MD [address] [place] [address] Referring Physician 12/04/22 Patricia Yañez LPN [facility] TCM Nurse 08/25/24 10/17/24 Zee Lazar DO [address] [place], [place] [address] Resident 09/08/24 documented as of this encounter
--- OUTSIDE RECORDS SUMMARY | 2024-11-02 13:10 | XMS_ITS | Encounter Summary ---
Author Organization Healthcare Address [address] [place] [address] Care Team Providers Care Assurance Specialist Name Role Phone Alisa Kunz DO Primary Care Provider [phone] Kodi Bustos DO Unavailable [phone] Sujit Arriola MD Unavailable [phone] Sujit Reyes MD Unavailable [phone] Patricia Yañez LPN Unavailable Unavailab Zee Lr DO Unavailable [phone] Encounter Details Date Type Department Care Team [...] 09/08/2024 [facility] of Occupat ional [facility] - Occupational Stress Questionnaire Answer Date [...] first t anselmo in the morning (EYE-SALES PROMOTION OFFICER) to steady your nerves or to get rid of a hangover? 0 08/14/2024 CAGE Questionnaire Score 0 025 Utilities Answer Date Recorded In the past 12 months has th e [employer], gas, oil, or water [employer] threatened to shut off services in [...] [facility] Internal Medicine [address]rd [place] [address] Alisa Kunz, DO [address] [place] [address] 12/23/2024 4:00 PM EDT Office Visit [facility] Medicine Specialties [address] [place] [address] Lavern Shoemaker MD [address] [place] [phone] 02/02/2025 8:40 AM EST Office Visit [facility] Internal Medicine [address], 3rd [place] [address] Alisa Kunz DO [address] [place] [address] 02/09/2025 12:20 PM EST Office Visit [facility] Endocrinology [address] [place] [address] Anne-Marie Kolb L, CONVEX GRINDER [address] [facility] 125 [place] [address] documented as of this encounter [...] documented as of this encounter Care Teams Assurance Specialist Relationship Specialty Start Date End Date Alisa Kunz DO [address] [place] [address] PCP - General Internal Medicine 03/13/21 Kodi Bustos DO [address] [place] [phone] Surgeon Cardiothoracic Surgery 11/06/22 Sujit Arriola MD [address] [place] [address] Consulting Physician Pulmonary Disease 11/06/22 Sujit Reyes MD [address] [place] [address] Referring Physician 12/04/22 Patricia Yañez LPN [facility] TCM Nurse 08/25/24 10/17/24 Zee Lazar DO [address] [place] [address] Resident 09/08/24 documented as of this encounter
--- OUTSIDE RECORDS SUMMARY | 2024-11-02 13:10 | XMS_ITS | Encounter Summary ---
Author Organization [facility] Address [address] [place] [address] Care Team Providers Care Tube Splicer Name Role Phone Alisa Kunz DO Primary Care Provider [phone] Kodi Bustos DO Unavailable [phone] Sujit Arriola MD Unavailable [phone] Sujit Reyes MD Unavailable [phone] Patricia Yañez LPN Unavailable Unavailab Zee Lr DO Unavailable [phone] Encounter Details Date Type Department Care Team (Late st Contact Info) Description 09/09/2024 Telephone [facility] Medicine Specialties [address], [address] [place] [address] [place] [address] Social History Tobacco Use Types Packs/Day Years [...] often do you attend [facility] or bahai services? 1 to 4 times [...] Recorded Patient Health Questionnaire-2 Score 0 09/08/2024 [facility] [place] of Occupat ional Health - Occupational Stress [...] any time in the past 12 m [facility], were you homeless or living [...] any time in the past 12 m [facility], were you homeless or living [...] drink first t anselmo in the morning (EYE-ACCESS SERVICES ASSISTANT) to steady your nerves or to [...] having to go through the ER CB: [phone] to reach daughter Madyson - patient is with her in the room at the time of the call documented in this encounter Plan of Treatment Upcoming Encounters Date Type Department Care Team (Late st Contact Info) Description 12/06/2024 11:20 AM EDT Office Visit [facility] Internal Medicine [address] 3rd [place] [address] Alisa Kunz, DO [address] [place] [address] 12/23/2024 4:00 PM EDT Office Visit [facility] Medicine Specialties [address] [place] [address] Lavern Shoemaker MD [address] [place], [place] [address] 02/02/2025 8:40 AM EST Office Visit [facility] Internal Medicine [address] 3rd [place] [address] Alisa Kunz, DO [address] [place] [address] 02/09/2025 12:20 PM EST Office Visit [facility] [address] [place] [address] Anne-Marie Kolb L, RABBET OPERATOR [address] [place] [address] documented as of this encounter Visit Diagnoses [...] as of this encounter Care Teams Tube Splicer Relationship Specialty Start Date End Date Alisa Kunz DO [address] [place] [address] PCP - General Internal Medicine 03/13/21 Kodi Bustos DO [address] [address] Surgeon Cardiothoracic Surgery 11/06/22 Sujit Arriola MD [address] [place] [address] Consulting Physician Pulmonary Disease 11/06/22 Sujit Reyes MD [address] [place] [address] Referring Physician 12/04/22 Patricia Yañez LPN [facility] TCM Nurse 08/25/24 10/17/24 Zee Lazar DO [address] [place], [place] [address] Resident 09/08/24 documented as of this encounter
--- OUTSIDE RECORDS SUMMARY | 2024-11-02 13:10 | XMS_ITS | Encounter Summary ---
Author Organization Healthcare Address [address] [place] [address] Care Team Providers Care Preprint Analyst Name Role Phone Alisa Kunz DO Primary Care Provider [phone] Kodi Bustos DO Unavailable [phone] Sujit Arriola MD Unavailable [phone] Sujit Reyes MD Unavailable [phone] Patricia Yañez LPN Unavailable Unavailab Zee Lr DO Unavailable [phone] Encounter Details Date Type Department Care Team [...] first t anselmo in the morning (EYE-HAND ETCHER) to steady your nerves or to get [...] Description 12/06/2024 11:20 AM EDT Office Visit [facility] Internal Medicine [address] 3rd [place] [address] Alisa Kunz, [address] [place] [address] 12/23/2024 4:00 PM EDT Office Visit [facility] Medicine Specialties [address] [place] [address] Lavern Shoemaker MD [address] [place] [address] 02/02/2025 8:40 AM EST Office Visit [facility] Internal Medicine [address]rd [place] [address] Alisa Kunz DO [address] [facility] [address] [place] [address] 02/09/2025 12:20 PM EST Office Visit [facility] Endocrinology [address] [place] [address] Anne-Marie Kolb L, PROJECT GEOLOGIST [address] [facility] [address] [place] [address] documented as of this encounter [...] documented as of this encounter Care Teams Preprint Analyst Relationship Specialty Start Date End Date Alisa Kunz DO [address] [facility] [address] [place] [address] PCP - General Internal Medicine 03/13/21 Kodi Bustos DO [address] [address] Surgeon Cardiothoracic Surgery 11/06/22 Sujit Arriola MD [address] [place] [address] Consulting Physician Pulmonary Disease 11/06/22 Sujit Reyes MD [address] [place] [address] Referring Physician 12/04/22 Patricia Yañez LPN [facility] TCM Nurse 08/25/24 10/17/24 Zee Lazar DO [address] [place] [address] Resident 09/08/24 documented as of this encounter
--- OUTSIDE RECORDS SUMMARY | 2024-11-02 13:10 | XMS_ITS | Clinical Summary ---
Author Organization [employer] ([place], [place], [place], [place]) Address [address] [place] [address] Care Team Providers Care Production Boring Machine Operator Name Role Phone Unavailable Primary Care Provider [...]
--- OUTSIDE RECORDS SUMMARY | 2024-11-02 13:10 | XMS_ITS | Encounter Summary ---
Author Organization Healthcare Address [address] [place] [address] Care Team Providers Care Data Processing Mechanic Name Role Phone Alisa Kunz DO Primary Care Provider Kodi Bustos DO Unavailable [phone] Sujit Arriola MD Unavailable [phone] Sujit Reyes MD Unavailable [phone] Patricia Yañez LPN Unavailable Unavailab Zee Lr DO Unavailable [phone] Reason for Visit * Reason Onset Date Comments HCN - Patient Message 10/11/2024 questions Encounter Details Date Type Department Care Team (Late st Contact Info) Description 10/11/2024 Telephone [facility] [address] [place] [address] Chris Pepe MD [address] [place] [address] HCN - Patient Message (questions) [...] Recorded Patient Health Questionnaire-2 Score 0 09/08/2024 [facility] of Occupat ional Health - [...] drink first t anselmo in the morning (EYE-[place] MACHINE OPERATOR) to steady your nerves or to get rid of a hangover? 0 08/14/2024 CAGE Questionnaire Score 0 025 Utilities Answer Date Recorded In the past 12 months has th e [employer], gas, oil, or water [employer] threatened to shut off services in your [...] optimal time of day to reach caller: [phone] Note: Please do not reply to this [...] [facility] Internal Medicine [address] [place] [address] Alisa Kunz, DO [address] [place] [address] 12/23/2024 4:00 PM EDT Office Visit [facility] Medicine Specialties [address] [place] [address] Lavern Shoemaker MD [address] [place] [address] 02/02/2025 8:40 AM EST Office Visit [facility] Internal Medicine [address] 3rd [place] [address] Alisa Kunz, DO [address] [facility] [address] [place] [address] 02/09/2025 12:20 PM EST Office Visit [facility] Endocrinology [address] [place] [address] Anne-Marie Kolb, UI APPLICATION DEVELOPER [address] [facility] [address] [place] [address] documented as of this encounter Visit Diagnoses [...] as of this encounter Care Teams Data Processing Mechanic Relationship Specialty Start Date End Date Alisa Kunz DO [address] [place] [address] PCP - General Internal Medicine 03/13/21 Kodi Bustos, [address] [address] Surgeon Cardiothoracic Surgery 11/06/22 Sujit Arriola MD [address] [place] [address] Consulting Physician Pulmonary Disease 11/06/22 Sujit Reyes MD [address] [place] [address] Referring Physician 12/04/22 Patricia Yañez LPN [facility] TCM Nurse 08/25/24 10/17/24 Zee Lazar DO [address] [place], [place] [address] Resident 09/08/24 documented as of this encounter
--- OUTSIDE RECORDS SUMMARY | 2024-11-02 13:10 | XMS_ITS | Encounter Summary ---
Author Organization [employer] ([place], [place], [place], [place]) Address [address] [place] [address] Care Team Providers Care Rubber Moulding Machine Operator Name Role Phone Unavailable Primary Care Provider Unavailabl e Encounter Details Date Type Department Care Team (Late st Contact Info) Description 08/21/2021 Transcribed Document [facility] [place] [address] ProviderNessa MD [address] [place] [address] Social History Tobacco Use Types [...] a Rank I in Education from the [facility]. 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 She is with two daughters. Ms. Torres does not currently participate in outpatient counseling. She previously attended outpatient counseling at [facility]. She is prescribed psychopharmacological therapy by Evelio Long M.D. at [facility]. She denied current suicidal ideation, plan or intent. She denied prior suicidal attempts. She endorsed a history of passive suicidal ideation during her thirties and forties, although she denied having a specific plan or intent at that time. She reported two prior inpatient psychiatric admissions during her thirties or forties at the [facility] in [place] [i.e. she believes it was the [facility]], for depression with suicidal ideation. Ms. Torres [...] prescribed by Evelio Long M.D., psychiatrist at [facility]. 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 I discussed this with her [...] CPAP therapy. This note was dictated using DocuSpeak voice recognition software. Cc: Alisa Kunz DO. documented in this encounter Plan of Treatment Not on file documented as of this encounter Visit Diagnoses Not on filedocumented in this encounter
--- OUTSIDE RECORDS SUMMARY | 2024-11-02 13:10 | XMS_ITS | Referral Summary ---
Author Organization [facility] ([place], [place], [place], [place]) Address [address] [place] [address] Care Team Providers Care Grain Packer Name Role Phone Unavailable Primary Care Provider [...]
--- OUTSIDE RECORDS SUMMARY | 2024-11-02 13:11 | XMS_ITS | Encounter Summary ---
Author Organization [facility] Address [address] [place] [address] Care Team Providers Care Radio Repairman Name Role Phone Alisa Kunz Primary Care Provider [phone] Encounter Details Date Type Department Care Team (Late st Contact Info) Description 09/06/2024 Documentation [facility] CARDIOLOGY [address] [facility] [address] [place] [address] Ekaterina Rand PA [address] [facility] [address] [place] [address] Social History Tobacco Use Types Packs/Day Years [...] us know that she was admitted at [facility] 08/14/2024 through 08/24/2024 for acute on [...] first diagonal, SVG to second diagonal, SHAR [place] metal stenting of the ostium of the SVG to second diagonal, Rotational atherectomy/PTCA ofRCA and SVG to second diagonal in-stent. PTCRA/stenting of proximal RCA in-stent restenosis and rotational atherectomy/PTCA of SVG to seconddiagonal. Brachy therapy for in-stent restenosis of proximal dominant RCA, 04/16/2001, LVEF (65%). [facility]: Dr. Thakkar for acute [place], 01/10/2007: Normal LV function and wall motion, Patent SVG to second diagonal, Patent SHEEHAN graft to LAD, 50% ostial stenosis of SVG to first diagonal, JANA Taxus stenting of mid RCA stenosis. Mild reversible anteroischemia - Cardiac SPECT (scan date ?), LVEF (77%). [facility], May 2011, [facility], reportedly revealed no disease (data deficit) in setting of diabetic ketoacidosis associated with acute respiratory failure requiring mechanical ventilation x 5 days. Echocardiogram 04/12/16: LVEF 70%, mild MR, AV sclerosis Myocardial perfusion study 02/17/2017: Wnl, EF 70% Echo, 05/18/21, EF 60%, Mild MS [facility] PTCA RCA ISR: Patent Grafts. 04/30 [...] AI. Mild MS. Admission at 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, outpt monitor demonstrated Afib 40% [...] Visit [facility] CARDIOLOGY [address] [facility] [place] [address] [facility] [address] [address] [facility] [address] [place] [address] 01/19/2025 1:45 PM EST Office Visit [facility] CARDIOLOGY [address] [place] [address] Naveen Velasquez MD [address] [facility] [address] [place] [address] documented as of this encounter Visit Diagnoses Not on filedocumented in this encounter Care Teams Radio Repairman Relationship Specialty Start Date End Date Alisa Kunz DO [address] [facility] [address] [place], [place] [address] PCP - General Internal Medicine 04/26/21 documented as of this encounter
--- OUTSIDE RECORDS SUMMARY | 2024-11-02 13:11 | XMS_ITS | Encounter Summary ---
[facility] Organization [facility] Address [address] [place] [address] Care Team Providers Care Clearance Coordinator Name Role Phone Alisa Kunz Primary Care Provider [phone]- [phone] Encounter Details Date Type Department Care Team (Latest Contact Info) Description 09/28/2024 Anticoagulation Visit [facility] [address] [facility] [address] [place] [address] Yancy Viveros, Patient Access Left ventricular apical thrombus (Primary Dx) Social [...] this encounter Progress Notes * Yancy Viveros, Patient Access - 09/28/2024 3:37 PM EDT [facility] Antico[facility] Progress Note Patient Demographics Method of INR reporting: D[employer]oop[employer]IO Home Monitor SN [id number] Estimated OOP Cost: Indication: Left Ventricular Atypical Thrombus (~2012) Referring Provider Nanette Pryor APRN Reason patient is not on a DOAC: Goal INR: 2-3 Warfarin Start Date ~02/12/24 Reason patient is not on home monitor: [id number]: Planned Duration of Therapy Indefinite Relevant medical [...] - HM 1.4 - Clinic 1.32 - SCRAP SHEAR OPERATOR 2.8 2.0 Notes Admitted [facility] Rec'd [...] Verbal release: Signed 03/05/24 Preferred contact number: [phone] Alternative contact number(s): [phone] (Doron) [phone] (Ruthie) [phone] (Madyson) Patient Appropriate for WarfNoCall ? No [...] questions at this time. Yancy Viveros CPhT, [facility] 15:46 EDT 09/28/2024 IReema, PharmD, have reviewed the note in full and agree with the assessment and plan. 09/28/24 15:55 EDT documented in this encounter Plan of Treatment Upcoming Encounters Date Type Department Care Team (Late st Contact Info) Description 12/02/2024 3:30 PM EDT Office Visit [facility] CARDIOLOGY [address] [place] [address] Sujit Reyes MD [address] [facility] [address] [place], [place] [address] 01/19/2025 1:45 PM EST Office Visit [facility] CARDIOLOGY [address] [facility] [address] [place] [address] Naveen Velasquez MD [address] [facility] [address] [place] [address] documented as of this encounter Visit Diagnoses Diagnosis Left ventricular apical thrombus- Primary documented in this encounter Care Teams Clearance Coordinator Relationship Specialty Start Date End Date Alisa Kunz DO [address] [place] [address] PCP - General Internal Medicine 04/26/21 documented as of this encounter
--- OUTSIDE RECORDS SUMMARY | 2024-11-02 13:11 | XMS_ITS | Encounter Summary ---
[facility] Address [address] [place] [address] Care Team Providers Care Professor Of Criminal Justice Name Role Phone Alisa Kunz Primary Care Provider [phone]- [phone] Encounter Details Date Type Department Care Team [...] SERVICES CARDIOLOGY [address] [place] [address] [place] [address] Sujit Reyes MD [address] [facility] [address] [place] [address] 01/19/2025 1:45 PM EST Office Visit [facility] CARDI[facility] [address] [facility] [address] [place] [address] Naveen Velasquez MD [address] [facility] [address] [place] [address] documented as of this encounter Visit Diagnoses Not on filedocumented in this encounter Care Teams Professor Of Criminal Justice Relationship Specialty Start Date End Date Alisa Kunz DO [address] [place], [place] [address] PCP - General Internal Medicine 04/26/21 documented as of this encounter
--- OUTSIDE RECORDS SUMMARY | 2024-11-02 13:11 | XMS_ITS | Encounter Summary ---
[facility] Address [address] [place] [address] Care Team Providers Care Hot Mill Worker Name Role Phone Alisa Kunz Primary Care Provider +1- [phone] Encounter Details Date Type Department Care Team [...] HOSPITAL CARDIOLOGY [address] [place] [address] Sujit Reyes MD [address] [facility] [address] E [address] [place] [address] 01/19/2025 1:45 PM EST Office Visit [facility] CARDIOLOGY [address] [facility] [address] [place] [address] Naveen Velasquez MD [address] [facility] [address] [place] [address] documented as of this encounter Visit Diagnoses Not on filedocumented in this encounter Care Teams Hot Mill Worker Relationship Specialty Start Date End Date Alisa Kunz DO [address] [place], [place] [address] PCP - General Internal Medicine 04/26/21 documented as of this encounter
--- OUTSIDE RECORDS SUMMARY | 2024-11-02 13:11 | XMS_ITS | Encounter Summary ---
Author [facility] Address [address] [place] [address] Care Team Providers Care Contracting Engineer Name Role Phone Alisa Kunz Primary Care Provider +1- [phone] Encounter Details Date Type Department Care Team [...] Description 12/02/2024 3:30 PM EDT Office Visit [facility] CARDIOLOGY [address] [place] [address] Sujit Reyes MD [address] [facility] [address] E [address] [place], [place] [address] 01/19/2025 1:45 PM EST Office Visit [facility] CARDIOLOGY [address] [facility] [address] [place] [address] Naveen Velasquez MD [address] [facility] [address] [place], [place] [address] documented as of this encounter Visit Diagnoses Not on filedocumented in this encounter Care Teams Contracting Engineer Relationship Specialty Start Date End Date Alisa Kunz DO [address] [place] [address] PCP - General Internal Medicine 04/26/21 documented as of this encounter
--- OUTSIDE RECORDS SUMMARY | 2024-11-02 13:11 | XMS_ITS | Encounter Summary ---
Author Organization [facility] Address [address] [place] [address] Care Team Providers Care Personal Injury Attorney Name Role Phone Alisa Kunz Primary Care Provider +1- [phone] Encounter Details Date Type Department Care Team (Latest Contact Info) Description 10/28/2024 Anticoagulation Visit [facility] ANTICOAGULATION CLINIC [address] [facility] [address] [place] [address] Yancy Viveros, Nylon Mender Left ventricular apical thrombus (Primary Dx) Social [...] this encounter Progress Notes * Yancy Viveros, Nylon Mender - 10/28/2024 11:51 AM EDT [facility] Anticoagulation Clinic Progress Note Patient Demographics Method of INR reporting: [employer] Home Monitor SN [id number] Estimated OOP Cost: Indication: Left Ventricular Atypical Thrombus (~2012) Referring Provider Nanette Pryor APRN Reason patient is not on a DOAC: Goal INR: 2-3 Warfarin Start Date ~02/12/24 Reason patient is not on home monitor: [id number]: Planned Duration of Therapy Indefinite Relevant medical [...] - HM 1.4 - Clinic 1.32 - BUILDING SERVICEMAN 2.8 2.0 Notes Admitted [facility] Rec'd 05/27 HM 1-BILL TODAY HM 2- no leonid; In clinic HM 3 - no bill HM 4 - no bill HM 1- BILL TODAY HM 2 - no bill Rec'd 08/11 HM 3 - no bill HM 4- no bill Rec'd 09/02 In clinic Date 09/27 10/04 10/18 10/26 Total Weekly Dose 32.5 mg 35 mg 37.5 mg 35 mg INR 1.6 2.04 2.14 2.68 Notes Rec'd 09/28 Rec'd 10/05 Rec'd 10/19 Rec'd 10/28 Patient Contact Information Verbal release: Signed 03/05/24 Preferred contact number: [phone] Alternative contact number(s): [phone] (Doron) [phone] (Ruthie) [phone] (Madyson) Patient Appropriate for WarfNoCall ? No [...] Hospital admission, Bruising, Other complaints Comments: Patient took 5 mg instead of instructed 7.5 mg this past Friday. All other findings negative per patient. Dosing verified. Assessment and Plan: INR was therapeutic 10/26 at 2.68 (2.0-3.0). Instructed patient to continue warfarin 5 mg daily except 7.5 mg Tues until recheck. Recheck INR in 1 week, 11/02. Patient prefers testing Tuesdays. Verbal and written information provided. Michelle Felipe expresses understanding by teach back and has no further questions at this time. Yancy Viveros CPhT, RPhT 12:00 EDT 10/28/2024 IReema, PharmD, have reviewed the note in full and agree with the assessment and plan. 10/28/24 13:17 EDT documented in this encounter Plan of Treatment Upcoming Encounters Date Type Department Care Team (Late st Contact Info) Description 12/02/2024 3:30 PM EDT Office Visit [facility] CARDIOLOGY [address] [place] [address] [address] [place] [address] Sujit Reyes MD [address] [facility] [address] [address] 01/19/2025 1:45 PM EST Office Visit [facility] CARDIOLOG[facility] [address] [facility] [address] [place] [address] Naveen Velasquez MD 17[address] [facility] [address] [place] [address] documented as of this encounter Procedures Procedure Name Priority Date/Time Associated Diagnosis Comments PROTIME-INR Routine 10/26/2024 documented in this encounter Results * Protime-INR (10/26/2024) INR 2.68 Blood 10/26/2024 us Historical Provider LAB BLOOD ORDERABLES Lee Ann l Result documented in this encounter Visit Diagnoses Diagnosis Left ventricular apical thrombus- Primary documented in this encounter Care Teams Personal Injury Attorney Relationship Specialty Start Date End Date Alisa Kunz DO [address] [place] [address] PCP - General Internal Medicine 04/26/21 documented as of this encounter
--- OUTSIDE RECORDS SUMMARY | 2024-11-02 13:11 | XMS_ITS | Encounter Summary ---
[facility] Address [address] [place] [address] Care Team Providers Care Oil Pump Station Operator Chief Name Role Phone Alisa Kunz Primary Care Provider [phone] Encounter Details Date Type Department Care Team (Latest Contact Info) Description 10/19/2024 Anticoagulation Visit [facility] [address] [facility] [address] [place] [address] Mike Mariee, Emergency Management Coordinator Left ventricular apical thrombus (Primary Dx) Social [...] this encounter Progress Notes * Mike Mariee, Emergency Management Coordinator - 10/19/2024 10:32 AM EDT [facility] Progress Note Patient Demographics Method of INR reporting: OSR [employer] Home Monitor SN [id number] Estimated OOP Cost: Indication: Left Ventricular Atypical Thrombus (~2012) Referring Provider Nanette Pryor APRN Reason patient is not on a DOAC: Goal INR: 2-3 Warfarin Start Date ~02/12/24 Reason patient is not on home monitor: [id number]: Planned Duration of Therapy Indefinite Relevant medical [...] - HM 1.4 - Clinic 1.32 - HIP HOP DANCER 2.8 2.0 Notes Admitted [facility] Rec'd 05/27 [...] Verbal release: Signed 03/05/24 Preferred contact number: [phone] Alternative contact number(s): [phone] (Doron) [phone] (Ruthie) [phone] (Madyson) Patient Appropriate for WarfNoCall ? No [...] complaints Comments: Patient mentions difficulty communicating with [place], is waiting for her daughter tohelp her [...] further questions at this time. Mike Mariee [facility] 10/19/2024 10:54 EDT I, Reema Beal, IrajD, have reviewed the note in full and agree with the assessment and plan. 10/19/24 11:21 EDT documented in this encounter Plan of Treatment Upcoming Encounters Date Type Department Care Team (Late st Contact Info) Description 12/02/2024 3:30 PM EDT Office Visit [facility] [address] [facility] [place] [address] Sujit Reyes MD [address] [place] [address] 01/19/2025 1:45 PM EST Office Visit [facility] [address] [place] [address] Naveen Velasquez MD [address] [place] [address] documented as of this encounter Procedures Procedure Name Priority Date/Time Associated Diagnosis Comments SCANNED - LABS 10/19/2024 PROTIME-INR Routine 10/18/2024 documented in this encounter Results * LABS SCANNED (10/19/2024) [facility] New Onbase LAB BLOOD ORDERABLES Final Re sult * Protime-INR (10/18/2024) INR 2.14 Blood 10/18/2024 Historical Provider LAB BLOOD ORDERABLES Edit ed Result - Final documented in this encounter Visit Diagnoses Diagnosis Left ventricular apical thrombus- Primary documented in this encounter Care Teams Oil Pump Station Operator Chief Relationship Specialty Start Date End Date Alisa Kunz DO [address] [place] [address] PCP - General Internal Medicine 04/26/21 documented as of this encounter
--- OUTSIDE RECORDS SUMMARY | 2024-11-02 13:11 | XMS_ITS | Encounter Summary ---
[facility] Address [address] [place] [address] Care Team Providers Care Television News Video Editor Name Role Phone Alisa Kunz Primary Care Provider [phone]- [phone] Encounter Details Date Type Department Care Team (Late st Contact Info) Description 09/16/2024 Prep for Surgery [facility] ORDERS ONLY [address] [place] [address] Peg Nails PAEsthelaC [address] [facility] [address] [place] [address] Social History Tobacco Use Types [...] Description 12/02/2024 3:30 PM EDT Office Visit [facility] [address] [place] [address] [place] [address] Sujit Reyes MD [address] [facility] [address] [place] [address] 01/19/2025 1:45 PM EST Office Visit [facility] [address] [facility] [address] [place] [address] Naveen Velasquez MD [address] [facility] [address] [place] [address] documented as of this encounter Visit Diagnoses Not on filedocumented in this encounter Care Teams Television News Video Editor Relationship Specialty Start Date End Date Alisa Kunz DO [address] [facility] [address] [place], [place] [id number] PCP - General Internal Medicine 04/26/21 documented as of this encounter
--- OUTSIDE RECORDS SUMMARY | 2024-11-02 13:11 | XMS_ITS | Encounter Summary ---
Author Organization [facility] Address [address] [place] [address] Care Team Providers Care Microsoft Application Developer Name Role Phone Alisa Kunz DO Primary Care Provider [phone] Laura Albright LAWYER Unavailable Unavailable Balwinder Vale Unavailable Unavailable Kodi Bustos DO Unavailable [phone] Sujit Arriola MD Unavailable [phone] HatLaura navas LPN Unavailable Unavailable Sujit Reyes MD Unavailable [phone] Zully Caldwell LAWYER Unavailable Unavailable HatLaura navas LAWYER Unavailable Unavailable HatLaura navas LAWYER Unavailable Unavailable Tanya Powell Unavailable [phone] Sarah Reyes LAWYER Unavailable Unavailable Ekaterina Gómez Unavailable Unavailable Zully Caldwell LAWYER Unavailable Unavailable Ekaterina Gómez Unavailable Unavailable Patricia Yañez LAWYER Unavailable Unavailab Zee Lr DO Unavailable [phone] Reason for Visit * Reason Comments Med Refill Encounter Details Date Type Department Care Team (Late st Contact Info) Description 12/10/2021 Refill [facility] Internal Medicine [address] [place] [address] Alisa Kunz DO [address] [place] [address] Social History Tobacco Use Types Packs/Day Years [...] Description 12/06/2024 11:20 AM EDT Office Visit [facility] Medicine [address] [place] [address] Alisa Kunz DO [address] [place] [address] 12/23/2024 4:00 PM EDT Office Visit [facility] [address] [place] [address] Lavern Shoemaker MD [address] [place] [address] 02/02/2025 8:40 AM EST Office Visit [facility] Internal Medicine [address] [place] [address] Alisa Kuzn, DO [address] [place] [address] 02/09/2025 12:20 PM EST Office Visit [facility] Endocrinology [address] [place] [address] Anne-Marie Kolb, ARCHITECTURAL WOOD MODEL MAKER [address] [facility] [address] [place] [address] documented as of this encounter [...] documented as of this encounter Care Teams Microsoft Application Developer Relationship Specialty Start Date End Date Alisa Kunz DO [address] [place] [address] PCP - General Internal Medicine 03/13/21 Laura Albright LPN [employer] [address] TCM Nurse 08/30/22 09/27/22 Balwinder Vale [address] [address] Community Health Worker Swing Saw Operator 08/30/22 09/06/22 Kodi Bustos DO [address] [address] Surgeon Cardiothoracic Surgery 11/06/22 Sujit Arriola MD [address] [place] [address] Consulting Physician Pulmonary Disease 11/06/22 Laura Albright LPN [employer] [place] [address] TCM Nurse 12/02/22 01/01/23 Sujit Reyes MD [address] [place] [address] Referring Physician 12/04/22 Zully Caldwell LPN [employer] [place] [address] TCM Nurse 02/03/23 03/05/23 Laura Albright LPN [employer] [address] TCM Nurse 08/05/23 09/04/23 Laura Albright LPN [employer] [address] TCM Nurse 02/17/24 03/18/24 Tanya Powell [address] [facility] [address] [place] [address] Registered Nurse 04/02/24 07/01/24 Sarah Reyes LPN TCM Nurse 05/27/24 06/26/24 Ekaterina Gómez Research Analyst Swing Saw Operator 07/14/24 07/14/24 Zully Caldwell LPN [employer] [address] TCM Nurse 07/16/24 08/15/24 Ekaterina Gómez Research Analyst Swing Saw Operator 08/16/24 08/16/24 Patricia Yañez LPN [facility] TCM Nurse 08/25/24 10/17/24 Zee Lazar DO [address] [place] [address] Resident 09/08/24 documented as of this encounter
--- OUTSIDE RECORDS SUMMARY | 2024-11-02 13:11 | XMS_ITS | Clinical Summary ---
[facility] Address [address] [place] [address] Care Team Providers Care Assistant Printer Floor Covering Name Role Phone Alisa Kunz Primary Care Provider +1- [phone] Allergies Active Allergy Reactions Criticality Noted Date [...] stress test 04/26/2020 Overview (04/27/2020): MPS at [facility] (04/19/2020): Test is abnormal and suggest anterior ischemia. Normal LVEF Fatigue 12/09/2018 Syncope and collapse 08/18/2018 Complete heart block 08/18/2018 A-fib 08/16/2018 History of CVA (cerebrovascular accident) 2018 Laceration of head 08/16/2018 Hyponatremia 08/15/2018 Second degree AV block 08/15/2018 Overview (08/24/2018): Added automatically from request for surgery [id number] Chronic kidney disease 05/05/2012 Hereditary and idiopathic neuropathy 05/05/2012 CAD (coronary artery disease) Ischemic heart disease Overview (02/29/2016): a. CABG, Dr. Timur Lopez, July 1999. i. SHEEHAN to distal LAD. ii. SVG to first diagonal. iii. SVG to second diagonal. b. SHAR Wideman metal stenting of the ostium of the SVG to second diagonal. c. Rotational atherectomy/PTCA of RCA and SVG to second diagonal in-stent. i. PTCRA/stenting of proximal RCA in-stent restenosis and rotational atherectomy/PTCA of SVG to second diagonal. d. Americo therapy for in-stent restenosis of proximal dominant RCA, 04/16/2001, LVEF (65%). e. [facility]: Dr. Thakkar for acute PR, 01/10/2007: i. Normal LV function and wall motion. ii. Patent SVG to second diagonal. iii. Patent SHEEHAN graft to LAD. iv. 50% ostial stenosis of SVG to first diagonal. v. JANA Taxus stenting of mid RCA stenosis. f. Mild reversible anteroischemia - Cardiac SPECT (scan date ?), LVEF (77%). g. [facility], May 2011, [facility], reportedly revealed no disease (data deficit) [...] Encounters Date Type Department Care Team Description 10/28/2024 Anticoagulation Visit [facility] [address] [place] [address] Yancy Viveros, Joy Loader Left ventricular apical thrombus (Primary Dx) 10/21/2024 2:15 PM EDT Office Visit [facility] [address] [place] [address] Lanter, Shannen D, MECHANIST EWELINA (obstructive sleep apnea) (Primary Dx); Nocturnal hypoxemia; Weight loss; On supplemental oxygen therapy 10/21/2024 Travel 10/19/[address] [facility] CARDIOLOG[facility] [address] [facility] [address] [place] [address] Naveen Velasquez MD 10/19/2024 Anticoagulation Visit [facility] [address] [facility] [address] [place] [address] Mike Mariee, Joy Loader Left ventricular apical thrombus (Primary Dx) 10/12/2024 9:52 AM EDT - 10/12/2024 4:46 PM EDT Hospital Encounter [facility] CVOU [address] [place] [address] Naveen Velasquez MD Paroxysmal atrial fibrillation Discharge Disposition: Home or Self Care 10/12/2024 Telephone [facility] [address] [facility] [address] [place] [address] Marj Delgado, PharmD 10/12/2024 Travel 10/07/2024 Telephone [facility] [address] [facility] [address] [place] [address] Mike Mariee, Joy Loader 10/05/[address] [facility] CARDIOLOG[facility] [address] [facility] [address] [place] [address] TOMASSONI - CARDIOVERSION 10/05/2024 Anticoagulation Visit [facility] [address] [facility] [address] [place] [address] Mike Mariee, Joy Loader Left ventricular apical thrombus (Primary Dx) 10/04/[address] [facility] [address] [facility] [address] [place] [address] MD [address]CRAGER - PPW REQUEST 09/28/2024 Anticoagulation Visit [facility] [address] [facility] [address] [place] [address] Yancy Viveros, Joy Loader Left ventricular apical thrombus (Primary Dx) 09/28/[address] [facility] [address] [facility] [address] [place] [address] Sujit Reyes MD Results 09/24/2024 Travel 09/22/2024 11:30 AM EDT Anticoagulation Visit [facility] [address] [facility] [address] [place] [address] Left ventricular apical thrombus (Primary Dx) 09/22/2024 Travel 09/21/2024 Telephone [facility] [address] [facility] [address] [place] [address] Marj Delgado, PharmD 09/20/2024 Telephone [facility] [address] [facility] [address] [place] [address] Marj Delgado, PharmD 09/20/2024 Travel 09/16/2024 Prep for Surgery [facility]DERS ONLY [address] [place] [address] Peg Nails PA-C 09/06/[address] [facility] [address] [facility] [address] [place] [address] Ekaterina Rand PA 09/06/[address] [facility] [address] [facility] [address] [place] [address]CRAGER - CALL BACK 09/06/[address] [facility] [address] [facility] [address] [place] [address] Sujit Reyes MD Med Refill 09/02/2024 Anticoagulation Visit [facility] [address] [facility] [address] [place] [address] Mike Navarro, Joy Loader Left ventricular apical thrombus (Primary Dx) 08/31/[address] [facility] [address] [facility] [address] [place] [address] Naveen Velasquez MD 08/31/[address] [facility] [address] [facility] [address] [place] [address]TOMASSONI - CALL BACK 08/27/2024 2:55 PM EDT Lab [facility] [address] [place] [address] Left ventricular apical thrombus; Left ventricular apical thrombus without PR 08/27/2024 1:30 PM EDT Anticoagulation Visit [facility] [address] [facility] [address] [place] [address] Left ventricular apical thrombus (Primary Dx); Left ventricular apical thrombus without PR 08/27/2024 Travel 08/26/2024 Anticoagulation Visit [facility] [address] [facility] [address] [place] [address] Yancy Viveros, Joy Loader Left ventricular apical thrombus (Primary Dx) 08/11/2024 Anticoagulation Visit [facility] [address] [facility] [address] [place] [address] Yancy Viveros, Joy Loader Left ventricular apical thrombus (Primary Dx) 08/04/2024 9:15 AM EDT Anticoagulation Visit [facility] [address] [facility] [address] [place] [address] Left ventricular apical thrombus (Primary Dx) 08/04/2024 Travel from Last 3 Months Immunizations Immunization Administration Dates Next Due COVID-19 (PFIZER) Purple Cap Monovalent 04/22/2020,03/30/2020 Fluzone High-Dose 65+YRS 11/27/2023,11/09,01/18/2019,12/19 Fluzone High-Dose 65+yrs 01/09/2023,01/09,01/18/2019,12/19 Hepatitis A 01/24/2019,01/23/2019,06/11/2018 Influenza TIV (IM) 12/08/2018 Influenza, Unspecified 12/09/2019 Pneumococcal Conjugate 13-Va lent (PCV13) 08/06/2019,07/02/2016 Pneumococcal Polysaccharide (PPSV23) 12/09/2019, 06/11/2018 Shingrix 01/24/2019,01/23/2019,06/11/2018 Family History Medical History Relation Name Comments COPD Father COPD Mother Gracydrew Maria Heart disease Mother Gracy Candace Stroke Mother Gracy Candace Relation Name Status Comments Father Mother Gracy Cadnace Social History Tobacco Use Types Packs/Day Years [...] Visit [facility] [address] [place] [address] [address] Sujit Reyes MD [address] [facility] [address] [place] [address] 01/19/2025 1:45 PM EST Office Visit [facility] [address] [place] [address] Naveen Velasquez MD [address] [facility] [address] [place], [place] [id number] Health Maintenance Due Date Last Done Comments DIABETIC FOOT EXAM 1961 URINE MICROALBUMIN-CREATININ E RATIO (uACR) 1961 TDAP/TD VACCINES (1 - Tdap) 1970 COLOGUARD 02/09/1996 COLON CANCER SCREENING 5 YEA R SIGMOIDOSCOPY 02/09/1996 CT COLONOGRAPHY 02/09/1996 FIT Testing (1 year) 02/09/1996 COVID-19 Vaccine (3 - Pfizer risk series) 05/20/2020 04/22/2020, 03/30/2020 MAMMOGRAM 11/10/2023 11/09/2021, 0 04/2021, 01/25/2020, Additional history exists ANNUAL WELLNESS [...] history exists Medical Devices Implanted Type Area Vp Mobile Products Device Identifier Shelf Expiration Date Model / Serial / Lot Ld Pm Tendril Sts 6f52cm [id number] - [id number] - [id number] Implanted:Qty: 1 on 08/24/2018 by Naveen Velasquez MD at [facility] [employer] 07/07/[id number] / [id number] / [id number] Ld Pm Tendril Sts 6f46cm [id number] - [id number] - [id number] Implanted:Qty: 1 on 08/24/2018 by Naveen Velasquez MD at [facility] [employer] 04/09/[id number] / [id number] / [id number] Gen Pm Assurity Mri Dr Ortez [id number] - [id number] - [id number] Implanted:Qty: 1 on 08/24/2018 by Naveen Velasquez MD at [facility] Pacemaker [employer] 01/08/2020 [id number] / [id number] / [id number] Procedures Procedure Name Priority Date/Time Associated Diagnosis Comments PROTIME-INR Routine 10/26/2024 SCANNED - LABS 10/19/2024 PROTIME-INR Routine 10/18/2024 [...] apical thrombus Left ventricular apical thrombus without PR POCT PROTIME - INR Routine 08/27/2024 2: 16 PM EDT REMOTE DEVICE CHECK 08/24/2024 5 :09 PM EDT PROTIME-INR Routine 08/10/2024 PROTIME-INR Routine 08/03/2024 OCCULT BLOOD X 1, STOOL Urgent 02/12/2024 12:11 PM EST SCANNED - COLONOSCOPY 10/17/2020 HEMOGLOBIN A1C STAT 05/04/2020 8:41 AM EST LIPID PANEL STAT 05/04/2020 8:41 AM EST from Last 3 Months or Most Recently Relevant to Health Maintenance Results * Protime-INR (10/26/2024) Only the most recent of10 resultswithin the time period is included. INR 2.68 Blood 10/26/2024 Historical Provider LAB BLOOD ORDERABLES Lee Ann l Result * LABS SCANNED (10/19/2024) Only the most recent of2 resultswithin the time period is included. [facility] LAB BLOOD ORDERABLES Final Re sult * Cardioversion External in Cardiology Department (10/12/2024 [...] of2 resultswithin the time period is included. [facility] WBC 7.80 3.40 - 10.80 10*3/mm3 10/12/2024 10:48 AM EDT [facility] RBC 3.75(L) 3.77 - 5.28 10*6/mm3 10/12/2024 10:48 AM EDT [facility] Hemoglobin 11.2(L) 12.0 - 15.9 g/dL 10/12/2024 10:48 AM EDT [facility] Hematocrit 36.8 34.0 - 46.6 % 10/12/2024 10:48 AM EDT [facility] MCV 98.1(H) 79.0 - 97.0 fL 10/12/2024 10:48 AM EDT [facility] MCH 29.9 26.6 - 33.0 pg 10/12/2024 10:48 AM EDT [facility] MCHC 30.4(L) 31.5 - 35.7 g/dL 10/12/2024 10:48 AM EDT [facility] RDW 16.7(H) 12.3 - 15.4 % 10/12/2024 10:48 AM EDT [facility] RDW-SD 60.3(H) 37.0 - 54.0 fl 10/12/2024 10:48 AM EDT [facility] MPV 9.7 6.0 - 12.0 fL 10/12/2024 10:48 AM EDT [facility] Platelets 289 140 - 450 10*3/mm3 10/12/2024 10:48 AM EDT [facility] Blood Line / Unknown 10/12/2024 10 :20 AM EDT 10/12/2024 10:40 AM EDT Naveen Velasquez MD LAB BLOOD ORDERABLES Final R esult Performing Organization Address [facility] Co de Phone Number [facility]
[address] [place] [address], * (ABNORMAL) POC Protime / INR (09/22/2024 11:47 AM EDT) Only the most recent of2 resultswithin the time period is included. Protime 24.2(H) 10.0 - 13.8 seconds 09/22/2024 11:49 AM EDT [facility] INR 2.0(H) 0.91 - 1.09 09/22/2024 11:49 AM EDT [facility] Blood 09/22/2024 11:4 7 AM EDT 09/22/2024 11:49 AM EDT LUIS Dimas POINT OF CARE TEST ORDERAB LES Final Result Performing Organization Address [facility] de Phone Number [facility]
[address] [place] [address], * (ABNORMAL) Basic Metabolic Panel (09/21/2024 9:55 AM EDT) Glucose 209(H) 65 - 99 mg/dL 09/21/2024 11:17 AM EDT [facility] BUN 19.8 8.0 - 23.0 mg/dL 09/21/2024 11:17 AM EDT [facility] Creatinine 1.05(H) 0.57 - 1.00 mg/dL 09/21/2024 11:17 AM EDT [facility] Sodium 133(L) 136 - 145 mmol/L 09/21/2024 11:17 AM EDT [facility] Potassium 5.0 3.5 - 5.2 mmol/L 09/21/2024 11:17 AM EDT [facility] Chloride 91(L) 98 - 107 mmol/L 09/21/2024 11:17 AM EDT [facility] CO2 27.6 22.0 - 29.0 mmol/L 09/21/2024 11:17 AM EDT [facility] Calcium 9.0 8.6 - 10.5 mg/dL 09/21/2024 11:17 AM EDT [facility] BUN/Creatinine Ratio 18.9 7.0 - 25.0 09/21/2024 11:17 AM EDT [facility] Anion Gap 14.4 5.0 - 15.0 mmol/L 09/21/2024 11:17 AM EDT [facility] eGFR 56.2(L) >60.0 mL/min/1.7 3 09/21/2024 11:17 AM EDT [facility] Blood Line / Unknown 09/21/2024 9: 55 AM EDT 09/21/2024 10:29 AM EDT [facility] LAB[facility]AT[facility] - 09/21/2024 11:17 AM EDT [...] Nails PA-C LAB BLOOD ORDERABLES Final Result [facility]
[address] [place] [address], * ECG Scan (08/31/2024) Only the most recent of2 resultswithin the time period is included. us Naveen Velasquez MD ECG ORDERABLES Final Result * Remote Device Check (08/24/2024 5:09 PM EDT) Date Time Interrogation Session [id number] [facility] Type Interrogation Session Remote Scheduled [facility] Implantable Pulse Generator Vp Mobile Products [facility] [employer] RADIOLOGY Implantable Pulse Generator Type IPG [facility] Implantable Pulse Generator Model 2272 Assurity MRI(TM) [facility] Implantable Pulse Generator Serial Number [id number] [facility] Implantable Pulse Generator Implant Date [id number] [facility] Battery Remaining Percentage 39.00 % [employer] RADIOLOGY Battery Remaining Longevity 44.0 mo [employer] RADI[facility] Battery Voltage 2.960 [facility] Intelligent Apps (mytaxi) RADIOLOGY Battery CLAIMS EXAMINER Trigger 2.600 [employer] RADIOLOGY Battery Status Middle of Service [facility] [employer] Statistic RA Percent Paced 1.00 [facility] [employer] Statistic RV Percent Paced 99.00 [facility] Atrial Tachy Statistic AT/AF [place] Percent 99.00 [employer] RADIOLOGY Lead Channel RA Sensing Intrinsic Amplitude 3.100 [employer] RADIOLOGY Lead Channel Setting RA Sensing Sensitivity 0.50 [employer]) RADIOLOGY Lead Channel RA Impedance Value 430 [facility] Lead Channel Setting RA Pacing Amplitude 2.000 [employer] RADIOLOGY Lead Channel Setting RA Pacing Pulse Width 0.6 [employer] RADIOLOGY Lead Channel RV Sensing Intrinsic Amplitude 12.000 [employer]) RADIOLOGY Lead Channel Setting RV Sensing Sensitivity 2.00 [employer]) RADIOLOGY Lead Channel RV Impedance Value 480 [employer]) RADIOLOGY Lead Channel Setting RV Pacing Amplitude 2.000 [employer] RADIOLOGY Lead Channel Setting RV Pacing Pulse Width 0.5 [facility] [employer] Setting Mode (NBG Code) DDDR [facility] [employer] Setting Lower Rate Limit 60 [facility] [employer] Setting AT Mode Switch Rate 160 [facility] [employer] Setting Maximum Tracking Rate 125 [facility] [employer] Setting Maximum Sensor Rate 115 [facility] [employer] Setting PAV Delay 180 [facility] [employer] Setting IZZY Delay 150 [facility] Lead Channel Setting RA Sensing Polarity Bipolar [facility] Lead Channel Setting RV Sensing Polarity Bipolar [facility] Lead Channel Setting RA Pacing Polarity Bipolar [facility] Lead Channel Setting RV Pacing Polarity Bipolar [facility] Lead Channel RA Pacing Threshold Polarity Bipolar [facility] Lead Channel RV Pacing Threshold Polarity Bipolar [facility] 08/24/2024 5:09 PM EDT Naveen Velasquez MD CV IMPLANTABLE CARDIAC DEVIC E Final Result [facility] * Occult Blood X 1, Stool - Stool, Per Rectum (02/12/2024 12:11 PM EST) Pathologist [facility] Fecal Occult Blood Negative Negative DISK DIFFUSION 02/12/2024 1:13 PM EST [facility] Stool Specimen from rectum / Unknown Collection / Unknown 02/12/2024 12:11 PM EST 02/12/2024 12:31 PM EST Shannen Foy MECHANIST BODY FLUIDS AND STOOLS ORDERABLES Final Result [facility]
[address] [place] [address], * SCANNED - COLONOSCOPY (10/17/2020) Sujit Christine MD CHART REVIEW TABS Lee Ann l Result * (ABNORMAL) Lipid Panel (05/04/2020 8:41 AM EST) Pathologist [facility] Total Cholesterol 184 0 - 200 mg/dL 05/04/2020 9:34 AM EST [facility] Triglycerides 133 0 - 150 mg/dL 05/04/2020 9:34 AM EST [facility] HDL Cholesterol 55 40 - 60 mg/dL 05/04/2020 9:34 AM EST [facility] LDL Cholesterol 106(H) 0 - 100 mg/dL 05/04/2020 9:34 AM EST [facility] VLDL Cholesterol 23 5 - 40 mg/dL 05/04/2020 9:34 AM EST [facility] LDL/HDL Ratio 1.86 05/04/2020 9:34 AM EST [facility] Blood Line / Unknown 05/04/2020 8: 41 AM EST 05/04/2020 8:55 AM EST Narrative [facility] - 05/04/2020 9:34 AM EST Cholesterol [...] LAB BLOOD ORDERABLES Lee Ann howard Result [facility]
[address] [place] [address], from Last 3 Months or Most Recently Relevant to Health Maintenance Insurance [facility] Medicare [employer] PPO Advance Directives * CPR (Attempt to Resuscitate) [...] Of Support Discussed With: Patient Care Teams Assistant Printer Floor Covering Relationship Specialty Start Date End Date Alisa Kunz DO [address] [place] [address] PCP - General Internal Medicine 04/26/21
--- OUTSIDE RECORDS SUMMARY | 2024-11-02 13:11 | XMS_ITS | Encounter Summary ---
Author Organization [facility] ystem Address [address] [place] [address] Care Team Providers Care Signal Worker Helper Name Role Phone Alisa Kunz Primary Care Provider +1- [phone] Reason for Visit * Reason Onset Date Comments Results 09/28/2024 Encounter Details Date Type Department Care Team (Late st Contact Info) Description 09/28/2024 Telephone [facility] [address] [facility] [address] [place] [address] Sujit Reyes MD [address] [facility] [address] [facility] [address] [place] [address] Results Social History Tobacco Use [...] 10:26 AM EDT Cece Prieto RN * [place] Suicide Severity Rating Scale (Screener/Recent Self-Report) Question Answer Date of Assessment Author 6. Suicidal Behavior (Lifetime) No 10:26 AM EDT Cece Prieto RN documented as of this encounter Miscellaneous Notes * Telephone Encounter - Nba Smith RegSched Rep - 09/28/2024 11:32 AM EDT Caller: Michelle Felipe Relationship: Self Best call back number: [phone] What is the best time to reach [...] 3:30 PM EDT Office Visit [facility] [address] [place] [address] [place] [address] Sujit Reyes MD [address] [facility] [address] [place] [address] 01/19/2025 1:45 PM EST Office Visit [facility] [address] [facility] [address] [place] [id number] Naveen Velasquez MD [address] [facility] [address] [place] [address] documented as of this encounter Visit Diagnoses Not on filedocumented in this encounter Care Teams Signal Worker Helper Relationship Specialty Start Date End Date Alisa Kunz DO [address] [place] [address] PCP - General Internal Medicine 04/26/21 documented as of this encounter
--- OUTSIDE RECORDS SUMMARY | 2024-11-02 13:11 | XMS_ITS | Encounter Summary ---
[facility] Address [address] [place] [address] Care Team Providers Care Chemical Laboratory Assistant Name Role Phone Alisa Kunz Primary Care Provider +1- [phone] Encounter Details Date Type Department Care Team (Late st Contact Info) Description 09/21/2024 Telephone [facility] [address] [facility] [address] [place] [address] Marj Delgado, PharmD [address] [place] [address] Social History Tobacco Use Types [...] AM EDT Shown, Jodie Meza RN * [place] Suicide Severity Rating Scale (Screener/Recent Self-Report) Question [...] 3:30 PM EDT Office Visit [facility] [address] [place] [address] [address] [place] [address] Sujit Reyes MD [address] [facility] [address] [address] [place] [address] 01/19/2025 1:45 PM EST Office Visit [facility] [address] [facility] [address] [place] [address] Naveen Velasquez MD [address] [facility] [address] [place] [address] documented as of this encounter Visit Diagnoses Not on filedocumented in this encounter Care Teams Chemical Laboratory Assistant Relationship Specialty Start Date End Date Alisa Kunz DO [address] [place], [place] [id number] PCP - General Internal Medicine 04/26/21 documented as of this encounter
--- OUTSIDE RECORDS SUMMARY | 2024-11-02 13:11 | XMS_ITS | Encounter Summary ---
[facility] Address [address] [place] [address] Care Team Providers Care Warehouse Receiving Clerk Name Role Phone Alisa Kunz Primary Care Provider +1- [phone] Encounter Details Date Type Department Care Team (Late st Contact Info) Description 09/20/2024 Telephone [facility] 17[address] [facility] [address] [place] [address] Marj Delgado, PharmD [address]40 [place] [address] Social History Tobacco Use Types [...] CENTER CARDIOLOGY [address] [place] [address] [address] Sujit Reyes MD [address] [place] [address] [place] [address] 01/19/2025 1:45 PM EST Office Visit [facility] CARDIOLOGY 1720 [facility] [address] [place] [address] Naveen Velasquez MD [address] [place] [address] documented as of this encounter Visit Diagnoses Not on filedocumented in this encounter Care Teams Warehouse Receiving Clerk Relationship Specialty Start Date End Date Alisa Kunz DO [address] [facility] 304 [place] [address] PCP - General Internal Medicine 04/26/21 documented as of this encounter
--- OUTSIDE RECORDS SUMMARY | 2024-11-02 13:11 | XMS_ITS | Encounter Summary ---
Author Organization [facility] ystem Address [address] [place] [address] Care Team Providers Care No Bake Molder Name Role Phone Alisa Kunz Primary Care Provider +1- [phone] Reason for Visit * Reason Onset Date Comments - PPW REQUEST 10/04/2024 Encounter Details Date Type Department Care Team (Late st Contact Info) Description 10/04/2024 Telephone [facility] CARDIOLOGY 1720 [facility] 400 [place] [address] Sujit Reyes MD [address] [facility] [address] [facility] [address] [place] [id number] - PPW REQUEST Social History Tobacco Use [...] Tulio Relationship: Self Best call back number: [phone] What form or medical record are you requesting: INR Who is requesting this form or medical record from you: PATIENT How would you like to receive the form or medical records (pick-up, mail, fax): FAX If fax, what is the fax number: [phone] Timeframe paperwork needed: THOMPSON Additional notes: ORDERS FOR INR documented in this encounter Plan of Treatment Upcoming Encounters Date Type Department Care Team (Late st Contact Info) Description 12/02/2024 3:30 PM EDT Office Visit [facility] CARDIOLOGY [address] [place] [address] [address] [place] [address] Sujit Reyes MD [address] [place], [place] [id number] 01/19/2025 1:45 PM EST Office Visit [facility] CARDIOLOGY [address] [facility] [address] [place] [address] Naveen Velasquez MD [address] [facility] [address] [place] [address] documented as of this encounter Visit Diagnoses Not on filedocumented in this encounter Care Teams No Bake Molder Relationship Specialty Start Date End Date Alisa Kunz DO [address] [facility] [facility] [address] [place], [place] [id number] PCP - General Internal Medicine 04/26/21 documented as of this encounter
--- OUTSIDE RECORDS SUMMARY | 2024-11-02 13:11 | XMS_ITS | Encounter Summary ---
Author Organization [facility] Address [address] [place] [address] Care Team Providers Care Latexer Name Role Phone ZeAlisa willett Torri DO Primary Care Provider [phone] Kodi Bustos DO Unavailable [phone] Sujit Arriola MD Unavailable [phone] Sujit Reyes MD Unavailable [phone] Zee Lazar DO Unavailable [phone] Encounter Details Date Type Department Care Team (Latest Contact Info) Description 10/27/2024 Travel Social History Tobacco Use Types Packs/Day [...] Recorded Patient Health Questionnaire-2 Score 0 10/27/2024 [facility] - [...] any time in the past 12 m [facility], were you homeless or living [...] any time in the past 12 m [facility], were you homeless or living [...] first t anselmo in the morning (EYE-MEDIA PLANNER) to steady your nerves or to get rid of a hangover? 0 08/14/2024 CAGE Questionnaire Score 0 025 Utilities Answer Date Recorded In the past 12 months has th e [employer], gas, oil, or water [employer] threatened to shut off services in your [...] Lia Espinosa documented as of this encounter Plan of Treatment Upcoming Encounters Date Type Department Care Team (Late st Contact Info) Description 12/06/2024 11:20 AM EDT Office Visit [facility] Internal Medicine [address]rd [place] [address] Alisa Kunz DO [address] [place] [address] 12/23/2024 4:00 PM EDT Office [facility] Medicine Specialties [address] [place] [address] Lavern Shoemaker MD [address] [place] [id number] 02/02/2025 8:40 AM EST Office Visit [facility] Internal Medicine [address] [place] [address] Alisa Kunz DO [address] [place] [address] 02/09/2025 12:20 PM EST Office Visit [facility] Endocrinology [address] [place] [address] Anne-Marie Kolb, INSURANCE VERIFICATION SPECIALIST [address] [facility] [address] [place] [address] documented as of this encounter [...] documented as of this encounter Care Teams Latexer Relationship Specialty Start Date End Date Alisa Kunz DO [address] [place] [address] PCP - General Internal Medicine 03/13/21 Kodi Bustos DO [address] [address] Surgeon Cardiothoracic Surgery 11/06/22 Sujit Arriola MD [address] [place] [address] Consulting Physician Pulmonary Disease 11/06/22 Sujit Reyes MD [address] [facility] [address] [place] [address] Referring Physician 12/04/22 Zee Lazar DO [address] [place] [address] Resident 09/08/24 documented as of this encounter
--- OUTSIDE RECORDS SUMMARY | 2024-11-02 13:11 | XMS_ITS | Encounter Summary ---
Author Organization [facility] ystem Address [address] [place] [address] Care Team Providers Care Motion Pictures Cartoonist Name Role Phone Alisa Kunz Primary Care Provider +1- [phone] Encounter Details Date Type Department Care Team (Late st Contact Info) Description 10/19/2024 Telephone [facility] CARDIOLOGY 17[address] [facility] [address] [place] [address] Naveen Velasquez MD [address] [facility] [address] E [address] [place] [address] Social History Tobacco Use Types [...] Description 12/02/2024 3:30 PM EDT Office Visit [facility] CARDIOLOGY [address] [facility] [place] [address] Sujit Reyes MD [address] [facility] E [address] [place] [address] 01/19/2025 1:45 PM EST Office Visit [facility] CARDIOLOGY [address] [place] [address] Naveen Velasquez MD [address] [place] [address] documented as of this encounter Visit Diagnoses Not on filedocumented in this encounter Care Teams Motion Pictures Cartoonist Relationship Specialty Start Date End Date Alisa Kunz DO [address] [place] [address] PCP - General Internal Medicine 04/26/21 documented as of this encounter
--- OUTSIDE RECORDS SUMMARY | 2024-11-02 13:11 | XMS_ITS | Encounter Summary ---
Author Organization [facility] ystem Address [address] [place] [address] Care Team Providers Care Vice President Lending Name Role Phone Alisa Kunz Primary Care Provider +1- [phone] Reason for Visit * Reason Comments Med Refill Encounter Details Date Type Department Care Team (Late st Contact Info) Description 09/06/2024 Refill [facility] CARDIOLOGY [address] [place] [address] Sujit Reyes MD 1720 [facility] [address]ld[address] E [address] [place] [id number] Med Refill Social History Tobacco Use Types [...] Description 12/02/2024 3:30 PM EDT Office Visit [facility] CARDIOLOGY [address] [facility] [place] [address] Sujit Reyes MD [address] [place], [place] [address] 01/19/2025 1:45 PM EST Office Visit [facility] CARDIOLOGY [address] [place] [address] Naveen Velasquez MD [address] [place] [address] documented as of this encounter Visit Diagnoses Not on filedocumented in this encounter Care Teams Vice President Lending Relationship Specialty Start Date End Date Alisa Kunz DO [address] [place] [address] PCP - General Internal Medicine 04/26/21 documented as of this encounter
--- OUTSIDE RECORDS SUMMARY | 2024-11-02 13:11 | XMS_ITS | Encounter Summary ---
Author Organization [facility] ystem Address [address] [place] [address] Care Team Providers Care Receptionist Name Role Phone Ze Alisa Lizbeth Primary Care Provider +1- [phone] Reason for Referral * Hospital - Outpatient (Routine) - Authorized Specialty Diagnoses / Procedures Referred By Contac t Referred To Contact Diagnoses Paroxysmal atrial fibrillation Procedures Cardioversion External in Cardiology Department SD CARDIOVERSION ELECTIVE ARRHYTHMIA EXTERNAL Sujit Reyes MD 1720 [facility] E [address] [place] [address] Phone: tel: fax: [facility] INVASIVE LOCATION Referral ID Status Reason Start Date Expiration Date V isits Requested Visits Authorized [id number] Authorized 09/06/2024 12/06/2025 1 2 Reason for Visit * Reason Onset Date Comments - CALL BACK 09/06/2024 Encounter Details Date Type Department Care Team (Late st Contact Info) Description 09/06/2024 Telephone [facility] CARDIOLOGY 1720 [facility] 400 [place] [address] Sujit Reyes MD 1720 [facility] E [address] [place] [address] - CALL BACK Social History Tobacco Use [...] Felipe Relationship: Self Best call back number: [phone] What is the best time to reach [...] HOSPITAL CARDIOLOGY [address] [place] [address] [address] [place] [address] Sujit Reyes MD 1720 [facility] [address] [address] 01/19/2025 1:45 PM EST Office Visit [facility] CARDIOLOGY [address] [place] [address] Naveen Velasquez MD [address] [facility] [address] [place], [place] [address] documented as of this encounter Visit Diagnoses Diagnosis Paroxysmal atrial fibrillation- Primary Atrial fibrillation documented in this encounter Care Teams Receptionist Relationship Specialty Start Date End Date Alisa Kunz DO [address] [place] [address] PCP - General Internal Medicine 04/26/21 documented as of this encounter
--- OUTSIDE RECORDS SUMMARY | 2024-11-02 13:11 | XMS_ITS | Encounter Summary ---
Author Organization [facility] Address [address] [place] [address] Care Team Providers Care Student Development Dean Name Role Phone Alisa Kunz Primary Care Provider +1- [phone] Encounter Details Date Type Department Care Team [...] 9:45 AM EDT Tanya Boyce RN * Morgan Suicide Severity Rating Scale (Screener/Recent Self-Report) Question Answer Date of Assessment Author 6. Suicidal Behavior (Lifetime) No 09/24/2024 9:45 AM EDT Cassandra Parisi RN documented as of this encounter Plan of Treatment Upcoming Encounters Date Type Department Care Team (Late st Contact Info) Description 12/02/2024 3:30 PM EDT Office Visit [facility] CARDIOLOGY [address] [facility] [place] [address] Sujit Reyes MD [facility]20 [facility] [address] [place] [address] 01/19/2025 1:45 PM EST Office Visit [facility] CARDIOLOGY 1720 [facility] [address] [place] [address] Naveen Velasquez MD [address] [facility] [address] E [address] [place] [address] documented as of this encounter Visit Diagnoses Not on filedocumented in this encounter Care Teams Student Development Dean Relationship Specialty Start Date End Date Alisa Kunz DO [address] [place] [address] PCP - General Internal Medicine 04/26/21 documented as of this encounter
--- OUTSIDE RECORDS SUMMARY | 2024-11-02 13:11 | XMS_ITS | Encounter Summary ---
Author Organization [facility] Address [address] [place] [address] Care Team Providers Care Environmental Science Technician Name Role Phone Alisa Kunz Primary Care Provider +1- [phone] Encounter Details Date Type Department Care Team (Latest Contact Info) Description 06/14/2024 Anticoagulation Visit [facility] 1720 [facility] 606 [place] [address] Mike Mariee, Rivet Catcher Left ventricular apical thrombus (Primary Dx) Social [...] Visit [facility] CARDIOLOGY 210 [facility] [place] [address] Sujit Reyes MD 1720 [facility] [address] [place] [address] 01/19/2025 1:45 PM EST Office Visit [facility] CARDIOLOGY 1720 [facility] [address] [place] [address] Naveen Velasquez MD 1720 [facility] [address] [place] [address] documented as of this encounter Visit Diagnoses Diagnosis Left ventricular apical thrombus- Primary documented in this encounter Care Teams Environmental Science Technician Relationship Specialty Start Date End Date Alisa Kunz DO [address] [place], [place] [phone] PCP - General Internal Medicine 04/26/21 documented as of this encounter
[2024-11-02 14:13] LABS: INR 2.63 (0.9-1.1); Prothrombin Time 27.2 seconds (10.1-12.5)
== END 2024-11-02 23:59 | disposition home or self-care (01) ==
LOC: LAB 12:56
PROVIDERS: PCP Internal Medicine; Visit Provider Nurse Practitioner Gerontology
DX: I51.3 Intracardiac thrombosis, not elsewhere classified (principal); I24.0 Acute coronary thrombosis not resulting in myocardial infarction
CPT/HCPCS: 36415; 85610

== ENCOUNTER 2024-11-09 09:58 | Outpatient (CLI) | payer MEDICARE, SELFPAY ==
--- OUTSIDE RECORDS SUMMARY | 2019-03-15 14:10 | XMS_ITS | Encounter Summary ---
[facility] Address [address] [place] [address] Care Team Providers Care Boring Mill Operator Name Role Phone Jackson Malave MD Primary Care Provid er Reason for Referral * Hospital - Outpatient (Routine) - Closed Specialty Diagnoses / Procedures Referred By Luis Armando Referred To Contact Sleep Medicine Diagnoses EWELINA (obstructive sleep apnea) Fatigue, unspecified type Procedures Home Sleep Study Jesu Duarte MD Phone: tel: fax: [facility] [address] [place] [phone] Phone: tel: fax: Referral ID Status Reason Start Date Expiration Date Visits Re quested Visits Authorized [id number] Closed 02/09/2019 02/09/2020 1 1 Reason for Visit * Hospital - Outpatient (Routine) - Closed Specialty Diagnoses / Procedures Referred By Contdarwin t Referred To Contact Sleep Medicine Diagnoses EWELINA (obstructive sleep apnea) Fatigue, unspecified type Procedures Home Sleep Study Jesu Duarte MD Phone: tel: fax: [facility] [address] [facility] [address] [place] [address] Phone: tel: fax: Referral ID Status Reason Start Date Expiration Date Visits Re quested Visits Authorized [id number] Closed 02/09/2019 02/09/2020 1 1 Encounter Details Date Type Department Care Team (Late st Contact Info) Description 03/15/2019 1:10 PM EST Hospital Encounter [facility] [address] [facility] [address] [place] [address] Jesu Duarte MD [address] [place] [address] EWELINA (obstructive sleep apnea); Fatigue, [...] 10:26 AM EDT Cece Prieto RN * [place] Suicide Severity Rating Scale (Screener/Recent Self-Report) Question Answer Date of Assessment Author 6. Suicidal Behavior (Lifetime) No 10:26 AM EDT Cece Prieto RN documented as of this encounter Plan of Treatment Upcoming Encounters Date Type Department Care Team (Late st Contact Info) Description 11/28/2024 7:45 PM EDT Appointment [facility] [address] [place] [address] 12/02/2024 3:30 PM EDT Office Visit [facility] [address] [facility] [place] [phone] Sujit Reyes MD [address] [place] [address] 01/19/2025 1:45 PM EST Office [facility] [address] [facility] [address] [place] [phone] Naveen Velasquez MD [address] [facility] [address] [place] [address] documented as of this encounter Procedures Procedure [...] had a home sleep test with an [employer] Night One device that measured airflow at [...] documented as of this encounter Care Teams Boring Mill Operator Relationship Specialty Start Date End Date Jackson Malave MD PCP - General Internal Medicine 12/09/18 04/25/21 documented as of this encounter
--- OUTSIDE RECORDS SUMMARY | 2024-09-08 11:20 | XMS_ITS | Encounter Summary ---
Author Organization [facility] Address [address] [place] [address] Care Team Providers Care Merchandise Appraiser Name Role Phone Alisa Kunz DO Primary Care Provider [phone] Kodi Bustos DO Unavailable [phone] Sujit Arriola MD Unavailable [phone] Sujit Reyes MD Unavailable [phone] Patricia Yañez LPN Unavailable Unavailab Zee Lr DO Unavailable [phone] Reason for Referral * Imaging (Urgent) - Closed Specialty Diagnoses / Procedures Referred By Contdarwin t Referred To Contact Cardiology Diagnoses Localized swelling, mass and lump, left upper limb Procedures VAS US Venous Duplex Upper Extremity Unilateral Left Alisa Kunz DO [address] [address] Phone: tel: fax: Referral ID Status Reason Start Date Expiration Date V isits Requested Visits Authorized [id number] Closed Perform Procedure 09/08/2024 03/10/2026 1 1 Encounter Details Date Type Department Care Team (Late st Contact Info) Description 09/08/2024 11:20 AM EDT [facility] [address] [place] [address] Alisa Kunz, [address] [place] [address] Shortness of breath (Primary Dx); [...] often do you attend [facility] or [facility] services? 1 to 4 times per year [...] Recorded Patient Health Questionnaire-2 Score 0 09/08/2024 [facility] [place] of Occupat ional Health - Occupational Stress [...] exercise at this level? 60 min 08/30/2022 PHQ-9 Answer Date Recorded Patient Health Questionnaire-9 Score 0 09/08/2024 Humiliation, Afraid, Rape, and Kick questionnair e [...] any time in the past 12 m onths, were you homeless or living in a fdc (including now)? No 09/17/2024 CAGE ASSESSMENT Answer [...] drink first t anselmo in the morning (EYE-STUDIO DATA ANALYST) to steady your nerves or to get [...] Not at all 09/08/2024 11:19 AM EDT Stormy, Shashank Feeling down, depressed, or hopeless Not at all 09/08/2024 11:19 AM JANET Shashank Burrows Patient Health Questionnaire -2 Score [...] Not at all 09/08/2024 11 :19 AM JANET Shashank Burrows Feeling bad about yourself - [...] usual. Not at all 09/08/2024 11:19 AM Shashank Barreto Thoughts that you would be b kyleigh off or hurting yourself in some way Not at all 09/08/2024 11:19 AM Shashank Barreto Patient Health Questionnaire -9 Score 0 09/08/2024 [...] all 09/08/2024 11:19 AM EDT Joni Burrows y * Question Answer Date of Assessment Author 1. Wish to be (Past 1 Month) No 025 8:00 AM EDT Sunny Ramirez, EVITA 2. Non-Specific Active Suici dillon Thoughts (Past 1 Month) No 09/15/2024 8:00 AM EDT Flora Ramirez RN 6. 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 Otherwise [...] requiring chest tube placement (08/17-) and pleurodesis (6/12). Pulmonology and cardiology involved in patient's care [...] (08/17/24) showing mild pHTN. - [facility]s [facility]. - Continue home Lasix 40 mg [...] PCP, on 10/18/2024 Zee Lazar DO PGY-1, [facility] Internal Medicine [1] Past Medical History: Diagnosis Date 2018-nCoV acute respiratory disease 05/07/2022 Alcohol use Allergic 1973 Anemia Anxiety Arthritis Asthma Cellulitis 02/13/2024 Cellulitis of right leg 02/12/2024 CHF (congestive heart failure) ([facility]/HCC) Chronic respiratory failure 2019 Clotting disorder ([facility]/HCC) Congenital malformation COPD (chronic obstructive pulmonary disease) (CMS/HCC) 2019 Coronary artery disease CTS (carpal tunnel syndrome) Dental disease Depression Diabetes mellitus type I ([facility]/HCC) Disease of thyroid gland Eczema Fracture of [...] - Was ableto get patient in with [facility] ophthalmology right after our clinic appointment [...] CARDIAC PACEMAKER PLACEMENT N/A Pacemaker Placement from [employer] CARPAL TUNNEL RELEASE N/A Neuroplasty Decompression Median Nerve At Carpal Tunnel from [employer] CERVICAL BIOPSY W/ LOOP ELECTRODE EXCISION 2010 SECTION, CLASSIC 1976, 1979 SECTION, LOW TRANSVERSE N/A Section from [employer] COLONOSCOPY N/A Complete Colonoscopy from [employer] CORONARY ARTERY BYPASS GRAFT N/A CABG from [employer] EYE SURGERY N/A Eye Surgery from [employer] FRACTURE SURGERY SPINE SURGERY THORACENTESIS TOE SURGERY Left 02/07/2024 hematoma removal of upper skin on L big toe TONSILLECTOMY N/A Tonsillectomy from [employer] [3] Family History Problem Relation Name Age of Onset Conversions - Other Mother cindi shirley neville Goiter (Diffuse Nontoxic) Heart disease Mother cindi shirley neville Hypertension Mother cindi shirley neville Stroke Mother cindi shirley neville COPD Mother cindi shirley neville Alpha-1 antitrypsin deficiency Mother cindi shirley glaser kelin Arthritis Father Doron Glaser Hypercholesterolemia Father Doron Glaser Obesity Father Doron Glaser COPD Father Doron Glaser Alcohol abuse Father Doron Glaser Diabetes Sibling Cancer Other Doron Glaser Conversions - Other Other Goiter (Diffuse Nontoxic) Heart disease Other Cindi Marry Shirley Neville Cosigned by Alisa Kunz DO at 09/18/2024 [...] Description 12/06/2024 11:20 AM EDT [facility] [address] [place] [address] Alisa Kunz DO [address] [phone] 12/23/2024 4:00 PM EDT Office Visit [facility] Medicine Specialties [address] [place] [address] Lavern Shoemaker MD [address] [place] [phone] 02/02/2025 8:40 AM EST [facility] [address], [address] [place] [address] Alisa Kunz DO [address] [phone] 02/09/2025 12:20 PM EST [facility] [address] [place] [phone] Cortes Anne-Marie Torri, LAUNDRY TECH [address] [place] [address] documented as of this encounter Procedures Procedure [...] Amanda Chatman MD on 09/08/2024 4:46 PM Alisa Kunz DO IMG XR PROCEDURES Final Result * (ABNORMAL) Comprehensive metabolic panel (09/08/2024 1:33 PM EDT) Glucose, Plasma 247(H) 74 - 99 mg/dL 09/08/2024 4:06 PM EDT [facility] BUN, Plasma 24(H) 8 - 23 mg/dL 09/08/2024 4:06 PM EDT [facility] Creatinine, Plasma 0.92 0.60 - 1.10 mg/dL 09/08/2024 4:06 PM EDT [facility] BUN/Creatinine Ratio 26 09/08/2024 4:06 PM EDT [facility] Sodium, Plasma 131(L) 136 - 145 mmol/L 09/08/2024 4:06 PM EDT [facility] Potassium, Plasma 4.0 3.6 - 4.9 mmol/L 09/08/2024 4:06 PM EDT [facility] Chloride, Plasma 90(L) 97 - 107 mmol/L 09/08/2024 4:06 PM EDT [facility] CO2, Plasma 27 22 - 29 mmol/L 09/08/2024 4:06 PM EDT [facility] Anion Gap 14 6 - 16 mmol/L 09/08/2024 4:06 PM EDT [facility] Total Calcium, Plasma 8.9 8.9 - 10.2 mg/dL 09/08/2024 4:06 PM EDT [facility] Total Protein 7.4 6.3 - 7.9 g/dL 09/08/2024 4:06 PM EDT [facility] Albumin, Plasma 3.4(L) 3.5 - 5.2 g/dL 09/08/2024 4:06 PM EDT [facility] AST, Plasma 34 10 - 35 U/L 09/08/2024 4:06 PM EDT [facility] ALT, Plasma 25 10 - 35 U/L 09/08/2024 4:06 PM EDT [facility] Alkaline Phosphatase, Plasma 116 46 - 142 U/L 09/08/2024 4:06 PM EDT [facility] Total Bilirubin, Plasma 0.4 0.2 - 1.1 mg/dL 09/08/2024 4:06 PM EDT [facility] eGFRcr 65.9 mL/min/1.7 3m*2 09/08/2024 4:06 PM EDT [facility] Comment:Reported eGFRcr in m L/min/1.73m2 is based the CKD-EPI 2020 equation that does not use a race coefficient. Blood Venous blood specimen / Unknown Venipuncture / Unknown 09/08/2024 1:33 PM EDT 09/08/2024 1:33 PM EDT us Alisa Kunz DO LAB BLOOD ORDERABLES Final Res ult [facility] [address] [place] [address] * (ABNORMAL) CBC and Differential (09/08/2024 1:33 PM EDT) WBC Count 7.66 3.70 - 10.30 10*3/uL LAB HEMATOLOGY METHOD 09/08/2024 4:11 PM EDT [facility] RBC Count 3.47(L) 3.90 - 5.20 10*6/uL LAB HEMATOLOGY METHOD 09/08/2024 4:11 PM EDT [facility] HGB 10.2(L) 11.2 - 15.7 g/dL LAB HEMATOLOGY METHOD 09/08/2024 4:11 PM EDT [facility] HCT 32.8(L) 34.0 - 45.0 % LAB HEMATOLOGY METHOD 09/08/2024 4:11 PM EDT [facility] Platelet Count 534(H) 155 - 369 10*3/uL LAB HEMATOLOGY METHOD 09/08/2024 4:11 PM EDT [facility] MCV 95 79 - 98 fL LAB HEMATOLOGY METHOD 09/08/2024 4:11 PM EDT [facility] MCH 29.4 26.0 - 32.0 pg LAB HEMATOLOGY METHOD 09/08/2024 4:11 PM EDT [facility] MCHC 31.1 30.7 - 35.5 g/dL LAB HEMATOLOGY METHOD 09/08/2024 4:11 PM EDT [facility] RDW 15.4(H) 11.5 - 14.5 % LAB HEMATOLOGY METHOD 09/08/2024 4:11 PM EDT [facility] MPV 9.3 8.8 - 12.5 fL LAB HEMATOLOGY METHOD 09/08/2024 4:11 PM EDT [facility] nRBC 0.0 <=0.0 per 100 WBCs LAB HEMATOLOGY METHOD 09/08/2024 4:11 PM EDT [facility] Differential Type Automated LAB HEMATOLOGY METHOD 09/08/2024 4:11 PM EDT [facility] Neutrophils % 80 % LAB HEMATOLOGY METHOD 09/08/2024 4:11 PM EDT [facility] Lymphocytes % 8 % LAB HEMATOLOGY METHOD 09/08/2024 4:11 PM EDT [facility] Monocytes % 9 % LAB HEMATOLOGY METHOD 09/08/2024 4:11 PM EDT [facility] Eosinophils % 1 % LAB HEMATOLOGY METHOD 09/08/2024 4:11 PM EDT [facility] Basophils % 1 % LAB HEMATOLOGY METHOD 09/08/2024 4:11 PM EDT [facility] Immature Granulocytes % 1 % LAB HEMATOLOGY METHOD 09/08/2024 4:11 PM EDT [facility] Neutrophils Absolute 6.18(H) 1.60 - 6.10 10*3/uL LAB HEMATOLOGY METHOD 09/08/2024 4:11 PM EDT [facility] Lymphocytes Absolute 0.64(L) 1.20 - 3.90 10*3/uL LAB HEMATOLOGY METHOD 09/08/2024 4:11 PM EDT [facility] Monocytes Absolute 0.65 0.30 - 0.90 10*3/uL LAB HEMATOLOGY METHOD 09/08/2024 4:11 PM EDT [facility] Eosinophils Absolute 0.06 0.00 - 0.50 10*3/uL LAB HEMATOLOGY METHOD 09/08/2024 4:11 PM EDT [facility] Basophils Absolute 0.08 0.00 - 0.10 10*3/uL LAB HEMATOLOGY METHOD 09/08/2024 4:11 PM EDT [facility] Immature Granulocytes Absolute 0.05 0.00 - 0.06 10*3/uL LAB HEMATOLOGY METHOD 09/08/2024 4:11 PM EDT [facility] Blood Venous blood specimen / Unknown Venipuncture / Unknown 09/08/2024 1:33 PM EDT 09/08/2024 1:33 PM EDT Narrative [facility] - 09/08/2024 4:11 PM EDT Therapeutic decision making should be based on absolute values, rather than percentages. us Alisa L Ze DO LAB BLOOD ORDERABLES Final Res ult [facility] [address] [place] [address] * Ferritin (09/08/2024 1:33 PM EDT) Ferritin, Serum 102 13 - 150 ng/mL 09/08/2024 4:37 PM EDT [facility] Blood Venous blood specimen / Unknown Venipuncture / Unknown 09/08/2024 1:33 PM EDT 09/08/2024 1:33 PM EDT us Alisa L Ze DO LAB BLOOD ORDERABLES Final Res ult [facility] [address] [place] [address] * (ABNORMAL) Iron & Total Iron Binding Capacity, Plasma (Includes Transferrin) (09/08/2024 1:33 PM EDT) [facility] Iron, Plasma 26(L) 30 - 160 ug/dL 09/08/2024 4:06 PM EDT [facility] Transferrin, Plasma 262 200 - 360 mg/dL 09/08/2024 4:06 PM EDT [facility] Total Iron Binding Capacity, Plasma 328 240 - 450 ug/mL 09/08/2024 4:06 PM EDT [facility] Transferrin Saturation 8(L) 14 - 50 % 09/08/2024 4:06 PM EDT [facility] Blood Venous blood specimen / Unknown Venipuncture / Unknown 09/08/2024 1:33 PM EDT 09/08/2024 1:33 PM EDT Alisa L Ze DO LAB BLOOD ORDERABLES Final Res ult Performing Organization Address City/[facility] Co de Phone Number [facility] [address] [place] [address] * SARS-CoV-2, Flu A, Flu B, and RSV (09/08/2024 1:09 PM EDT) [facility] SARS CoV-2/COVID-19 RNA PCR Result Not Detected Not Detected 09/09/2024 10:48 AM EDT [facility] Influenza A Virus PCR Result Not Detected Not Detected 09/09/2024 10:48 AM EDT [facility] Influenza B Virus PCR Result Not Detected Not Detected 09/09/2024 10:48 AM EDT [facility] Respiratory Syncytial Virus (RSV) PCR Result Not Detected Not Detected 09/09/2024 10:48 AM EDT [facility] Swab Nasopharyngeal structure / Unknown Non-blood Collection / Unknown 09/08/2024 1:09 PM EDT 09/08/2024 4:50 PM EDT Narrative [facility] - 09/09/2024 10:48 AM EDT [...] This test was performed on the [employer] Respiratory Viral Panel, a PCR-based method. Negative [...] MICROBIOLOGY - GENERAL ORD ERABLES Final Result [facility] [address] [place] [address] documented in this encounter Visit Diagnoses Diagnosis [...] documented as of this encounter Care Teams Merchandise Appraiser Relationship Specialty Start Date End Date Alisa Kunz DO [address] [place] [phone] PCP - General Internal Medicine 03/13/21 Kodi Bustos DO [address] [phone] Surgeon Cardiothoracic Surgery 11/06/22 Sujit Arriola MD [address] [place] [address] Consulting Physician Pulmonary Disease 11/06/22 Sujit Reyes MD [address] [place] [address] Referring Physician 12/04/22 Patricia Yañez LPN [facility] TCM Nurse 08/25/24 10/17/24 Zee Lazar DO [address] [place] [phone] Resident 09/08/24 documented as of this encounter
--- OUTSIDE RECORDS SUMMARY | 2024-09-22 11:30 | XMS_ITS | Encounter Summary ---
[facility] Address [address] [place] [address] Care Team Providers Care Fish Trapper Name Role Phone Alisa Kunz Primary Care Provider +1- [phone] Encounter Details Date Type Department Care Team (Latest Contact Info) Description 09/22/2024 11:30 AM EDT Anticoagulation Visit [facility] 1720 [facility] [address] [place] [phone] Left ventricular apical thrombus (Primary Dx) Social [...] Beal, PharmD - 09/22/2024 11:30 AM EDT [facility] Anticoagulation Clinic Progress Note Patient Demographics Method of INR reporting: [employer] Home Monitor SN [id number] Estimated OOP Cost: Indication: Left Ventricular Atypical Thrombus (~2012) Referring Provider Nanette Pryor APRN Reason patient is not on a DOAC: Goal INR: 2-3 Warfarin Start Date ~02/12/24 Reason patient is not on home monitor: [id number]: Planned Duration of Therapy Indefinite Relevant medical [...] - HM 1.4 - Clinic 1.32 - ACCOUNTS PAYABLE ASSOCIATE 2.8 2.0 Notes Admitted [facility] Rec'd 05/27 [...] Verbal release: Signed 03/05/24 Preferred contact number: [phone] Alternative contact number(s): [phone] (Doron) [phone] (Ruthie) [phone] (Madyson) Patient Appropriate for WarfNoCall ? No Preferred contact name: Michelle Felipe Alternative contact name(s): Doron Felipe () Ruthie Chong (Daughter) Madyson Heranndes (Daughter) Preferred contact relation: Self Lab contact [...] at this time. Order sent to [facility] Reema Beal PharmD 09/22/2024 12:04 EDT documented in this encounter Plan of Treatment Upcoming Encounters Date Type Department Care Team (Late st Contact Info) Description 11/28/2024 7:45 PM EDT Appointment [facility] SLEEP [facility] 1720 [facility] [address] [place] [address] 12/02/2024 3:30 PM EDT Office Visit [facility] CARDIOLOGY [address] [place] [address] [place] [phone] Sujit Reyes MD 1720 [facility] [address] [place] [phone] 01/19/2025 1:45 PM EST Office Visit [facility] CARDI[facility] 1720 [facility] [address] [place] [address] Naveen Velasquez MD [address] [facility] [address] [place] [address] documented as of this encounter Procedures Procedure Name Priority Date/Time Associated Diagnosis Comments POCT PROTIME - INR Routine 09/22/2024 11 :47 AM EDT documented in this encounter Results * (ABNORMAL) POC Protime / INR (09/22/2024 11:47 AM EDT) Protime 24.2(H) 10.0 - 13.8 seconds 09/22/2024 11:49 AM EDT [facility] INR 2.0(H) 0.91 - 1.09 09/22/2024 11:49 AM EDT [facility] Blood 09/22/2024 11:4 7 AM EDT 09/22/2024 11:49 AM EDT LUIS Dimas POINT OF CARE TEST ORDERAB LES Final Result [facility]
[address] [place] [address], documented in this encounter Visit Diagnoses Diagnosis Left ventricular apical thrombus- Primary documented in this encounter Care Teams Fish Trapper Relationship Specialty Start Date End Date Alisa Kunz DO [address] [place] [address] PCP - General Internal Medicine 04/26/21 documented as of this encounter
--- OUTSIDE RECORDS SUMMARY | 2024-09-27 13:20 | XMS_ITS | Encounter Summary ---
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 Name Role Phone Alisa Kunz Torri DO Primary Care Provider Kodi Bustos DO Unavailable [phone] Sujit Arriola MD Unavailable [phone] Sujit Reyes MD Unavailable [phone] Patricia Yañez LPN Unavailable Unavailab Zee Lr DO Unavailable [phone] Reason for Visit * Reason Comments Follow-up Encounter Details Date Type Department Care Team (Late st Contact Info) Description 09/27/2024 1:20 PM EDT Office Visit [facility] [address] [place] [address] Ashley, June R, SUPERVISOR [employer]ENE[employer] [address] [place] [phone] Pleural effusion (Primary Dx); Longstanding persistent atrial fibrillation (CMS/HCC); Dizziness and giddiness; Health care maintenance Social History Tobacco Use Types Packs/Day [...] often do you attend chur ch or yazidi services? 1 to 4 times per year 08/30/2022 Do you belong to any clubs o r organizations such as gnosticism groups, unions, fraternal or athletic groups, or [...] Recorded Patient Health Questionnaire-2 Score 0 09/08/2024 [facility] - Occupational Stress Questionnaire Answer [...] living in a mcfp (including now)? No 09/17/2024 CAGE ASSESSMENT Answer [...] drink first t anselmo in the morning (EYE-HAIR SPRING CUTTER) to steady your nerves or to get [...] Sign Reading Time Taken Comments Blood Pressure 137/73 09/27/2024 1:17 PM EDT Pulse 60 09/27/2024 1:17 PM EDT Temperature 36.9 C (98.4 F) 09/27/2024 1:17 PM EDT Respiratory Rate 19 09/27/2024 1:17 PM EDT p t on 2 L NC Oxygen Saturation 94% 09/27/2024 1:17 PM EDT Inhaled Oxygen Concentration - - Weight 59 kg (130 lb) 09/27/2024 1:17 PM EDT per pt report Height - - Body Mass Index 22.3 09/09/2024 8:23 PM EDT documented in this encounter Miscellaneous Notes * Assessment & Plan Note - Dinah Ramirez, YAMILET - 09/27/2024 1:20 PM EDT Associated Problem(s): Pleural effusion -presented to ER on 09/09/24 from PCP with increased SOA for thoracentesis, hx of requiring bilateral -hx of chronic bilateral pleural effusions -2-4L baseline nasal cannula for respiratory failure -thoracentesis 09/11 -diuresis with lasix -increased lasix to 80mg up from 40mg -increased spironolactone from 6.25mg to 12.5mg daily -will check labs for kidney function -reports normal/chronic SOA today, but not worsening -sats 94% on baseline oxygen -pulm follow up scheduled for 10/14/24 -Educated patient on strict return to ER guidelines including: chest pain/SOA/stroke like symptoms Orders: Comprehensive metabolic panel; Future * Assessment & Plan Note - Dinah Ramirez APRN - 09/27/2024 1:20 PM EDT Associated Problem(s): Atrial fibrillation (CMS/HCC) -on coumadin, supposed to check INR at home. -requests INR check today -during last visit to discharge clinic there was confusion regarding continued coumadin management after checking INR so we reached out to established coumadin clinic and scheduled patient appointment for tomorrow. Orders: Protime-INR; Future * Patient Instructions - Mary Costello RN - 09/27/2024 1:20 PM EDT We have made you an appointment with [facility] (Anticoagulation Clinic) as we discussed. Your appointment is on 09/28/24 at 1:00PM - Clinic staff recommended to also review your myChart if you need additional appointment details. [facility]ticoagulation [facility] [address] [place] [address], [facility] [address] [place] [address] Phone number: [phone] Go immediately to the ER with any chest pain/palpitations/shortness of breath, seizure like activity, or stroke like symptoms (for example but not limited to: slurred speech, dizziness, one sided weakness, altered gait, facial droop, sudden terrible headache or worst headache of life) * Progress Notes - Dinah Ramirez APRN - 09/27/2024 1:20 PM EDT Transitional Care Management Progress Note: Pnnl-zy-Viad Visit Patient: Michelle Felipe : 1950 PCP: Alisa Kunz DO Subjective Michelle Felipe is a 74 y.o. female presenting today for follow-up after being discharged from the hospital 12 days ago. The main problem requiring admission was SOA. The discharge summary and/or Transitional Care Management documentation was reviewed. Medication reconciliation was performed as indicated via the Bryon as Reviewed timestamp. Michelle Felipe was contacted by Transitional Care Management services two days after her discharge. This encounter and supporting documentation was reviewed. The complexity of medical decision making for this patient's transitional care is moderate. HPI Recent hospital (paraphrased): Admit Date/Time: 09/09/2024 Discharge Date: 09/15/2024 Michelle Felipe is a 74 y.o. 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 She was scheduled for outpatient IR thoracentesis on 09/15 but admitted for expedited thoracentesis inpatient. She has a history of recurrent right pleural effusion since 2020 requiring multiple thoracentesis (total of 5) and chest tube 08/17/24 during admission, talc slurry pleurodesis 08/19/24, now considering pleuroperitoneal shunt due to recurrence after pleurodesis. #Acute on chronic hypoxic respiratory failure 2/2 recurrent pleural effusion s/p R sided thoracentesis (09/11/24) #Acute on chronic HFpEF -c/o SOA over the past few days -On home baseline 2L O2 with no acute worsening of oxygen requirements -h/o recurrent pleural effusion requiring multiple thoracentesis -Compliant with home lasix 40 mg daily -BNP in the 10,690 -venous duplex shows no DVT -CXR shows b/l pleural effusions (R>L) -Thoracentesis studies consistent with transudative effusion -Suspected possible SLE flare causing effusion, pending C3, C4 titers in pleural fluid studies (ordered MOON titers in pleural fluid studies but test unavailable) -Pulmonology consulted, s/p thoracentesis on 09/11 -Diuresis with lasix, NN -7.7L this admission -Symptomatic improvement -Increasing lasix 40 to 80 mg daily -continue home spironolactone 12.5 mg daily #SLE with concern of active flare -Follows with [facility], on plaquenil and mycophenolate -has c/o painful mouth sores and sores along her elbow and hand small joint along with possible dactylitis -Given her increased inflammatory markers with active symptoms of multiple oral sores, dactylitis, initially concerned for acute SLE flare and possible associated exudative effusion -Elevated CRP,ESR -C3, C4 WNL -ANCA and IgG titers WNL -MRI b/l hands ordered due to dactylitis to r/o erosions or infections -MRI R hand shows edema-like change along R second metatarsal concerning for possinle erosion -MRI L hand shows possible rheumatoid nodule along third digit flexor tendon, possible erosions along base of third and fourth digit -Echo EF 55-60%, no LV thrombus noted -Elevated UPCr -Pending anti-dsDNA - Rheumatology consulted; appreciate recommendations -Increased home hydroxychloroquine 200 to 300 mg daily -Above scans discussed with rheumatology team who report imaging findings are unlikely to be changes 2/2 SLE progression and recommned further outpatient follow up with Xray imaging -Continue hydroxychloroquine 300 mg daily -Hold MMF and resume on 09/18 pending treatment of oral herpes (see below) -Outpatient rheumatology follow up with xrays og b/l hands -Ambulatory referral placed to dermatology to biopsy nodules on hand -Ambulatory referral to nephrology due to elevated UPCr #Oral herpes infection, re-activation -has prior h/o oral herpes infection requiring treatment -c/o painful oral ulcers and pharyngitis -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 -Valacyclovir 500 mg BID for 5 days (end date: 09/17) -Will resume MMF after completion of anti-viral treatment -Ambulatory referral to dentistry and ENT to biopsy oral ulcers #Warfarin use iso chronic LV thrombus and atrial fibrillation -Held on admission (09/09) in view of upcoming thoracentesis -Resumed warfarin on 09/12 with lovenox bridging -Her INR stayed at sub-therapeutic levels in the hospital -Discharging on home warfarin along with therapeutic lovenox -Pt has home testing kit to check INR levels, educated to check INR levels alternate days and stop lovenox when INR levels >2 -Will set up appointment with [facility] next week -Continue home metoprolol #Hypertensive emergency, resolved -Continue home spironolactone 12.5 mg daily Medication Changes: -Increase lasix 40 to 80 mg daily -Increase hydroxychloroquine 200 to 300 mg daily -Complete valtrex 500 mg BID for a 5 day course (end date: 09/17) -Held MMF in view of oral herpes, will resume on 09/18 -Warfarin with tLOV bridging, will follow up with warfarin clinic Outpatient follow up: -Rheumatology: follow up on anti-dsDNA and pleural complement levels, X-rays of b/l hands -Pulmonology: follow up on recurrent pleural effusion and possible pleuroperitoneal shunt -Nephrology: elevated UPCr -ENT/Dentistry: biopsy oral ulcers -Dermatology: biopsy hand nodules -Warfarin clinic: Monitor INR to eventually discontinue tLOV Patient presents to high risk discharge clinic today for transition of care appointment/hospital follow-up: Today Ms. Felipe reports she is not doing well. Reports dizziness, similar to previous visit to discharged clinic which she feels is related to her spirolactone use. She was doing well on 6.25mg but this was increased to 12.5mg while inpatient. She would like to return to 6.25mg daily. Will review labs today to determine if we need to make changes to diuretics, otherwise will defer to cardiology/nephrology/PCP. Has CGM, reports her dizziness is not related to low sugar. Currently 238 per CGM. Patient requests INR check. Unknown when her next appointment is with coumadin clinic. During last visit and follow up calls there was some confusion with patient regarding coumadin management so I will check her INR today but our clinic reached out to schedule her an appointment for further management of her coumadin in order to quell any confusion in the future. Patient is established with [facility] with next appt 10/18/24. Review of Systems: Review of Systems Constitutional: Positive for fatigue ( all the time ). Negative for activity change and fever. HENT: Positive for rhinorrhea (when eating). Negative for congestion and sore throat. Respiratory: Positive for cough (intermittent, after taking treligy) and shortness of breath (when walking). Cardiovascular: Negative for chest pain and palpitations. Gastrointestinal: Positive for constipation (earlier today). Negative for abdominal pain, blood in stool, diarrhea, nausea and vomiting. Genitourinary: Negative for difficulty urinating, dysuria and hematuria. Musculoskeletal: Negative for back pain and myalgias. Skin: Negative for rash and wound. Neurological: Positive for dizziness, weakness (globalized) and headaches (intermittent, when standing). Negative for numbness. Psychiatric/Behavioral: Negative for suicidal ideas. The patient is not nervous/anxious. Past Medical History: Past Medical History[1] Past Surgical History: Surgical History[2] Family History: Family History[3] Objective Physical Exam Constitutional: General: She is not in acute distress. Appearance: Normal appearance. She is not ill-appearing, toxic-appearing or diaphoretic. HENT: Head: Normocephalic. Eyes: Pupils: Pupils are equal, round, and reactive to light. Cardiovascular: Rate and Rhythm: Normal rate and regular rhythm. Pulses: Normal pulses. Heart sounds: Normal heart sounds. Pulmonary: Effort: Pulmonary effort is normal. No respiratory distress. Breath sounds: Examination of the right-lower field reveals decreased breath sounds. Examination ofthe left-lower field reveals decreased breath sounds. Decreased breath sounds present. Abdominal: General: Bowel sounds are normal. Palpations: [...] Thought content normal. Judgment: Judgment normal. Assessment/Plan Assessment & Plan Pleural effusion -presented to ER on 09/09/24 from PCP with increased SOA for thoracentesis, hx of requiring bilateral -hx of chronic bilateral pleural effusions -2-4L baseline nasal cannula for respiratory failure -thoracentesis 09/11 -diuresis with lasix -increased lasix to 80mg up from 40mg -increased spironolactone from 6.25mg to 12.5mg daily -will check labs for kidney function -reports normal/chronic SOA today, but not worsening -sats 94% on baseline oxygen -pulm follow up scheduled for 10/14/24 -Educated patient on strict return to ER guidelines including: chest pain/SOA/stroke like symptoms Orders: Comprehensive metabolic panel; Future Longstanding persistent atrial fibrillation (CMS/HCC) -on coumadin, supposed to check INR at home. -requests INR check today -during last visit to discharge clinic there was confusion regarding continued coumadin management after checking INR so we reached out to established coumadin clinic and scheduled patient appointment for tomorrow. Orders: Protime-INR; Future Dizziness and giddiness -chronic, intermittent -feels worse with increase in spironolactone -will repeat labs today to ensure Health care maintenance -Patient is established with [facility] with next appt 10/18/24. Follow up appointments: [facility] 09/30/24, ENT 10/07/24, ENG 10/07/24, Cardiology 10/07/24, Pulm 10/14/24, [facility] 10/18/24, Nephrology 10/25/24, Endocrinology 10/27/24, [facility] 12/22/24, Cardiology 01/19/25, [facility] 02/02/25, [facility] 03/28/25 Note to patient: The Cures Act makes medical notes like these [...] clinical opinion of the practitioner. Dinah Ramirez, SUPERVISOR [employer]ENEER 09/27/2024 1:27 PM [1] Past Medical History: Diagnosis Date 2019-nCoV [...] - Was ableto get patient in with [facility] ophthalmology right after our clinic appointment (where [...] CARDIAC PACEMAKER PLACEMENT N/A Pacemaker Placement from [facility] CARPAL TUNNEL RELEASE N/A Neuroplasty Decompression Median Nerve At Carpal Tunnel from [facility] CERVICAL BIOPSY W/ LOOP ELECTRODE EXCISION 2010 SECTION, CLASSIC 1976, 1979 SECTION, LOW TRANSVERSE N/A Section from [facility] COLONOSCOPY N/A Complete Colonoscopy from [facility] CORONARY ARTERY BYPASS GRAFT N/A CABG from [facility] EYE SURGERY N/A Eye Surgery from [facility] FRACTURE SURGERY SPINE SURGERY THORACENTESIS TOE SURGERY Left 02/07/2024 hematoma removal of upper skin on L big toe TONSILLECTOMY N/A Tonsillectomy from [facility] [3] Family History Problem Relation Name Age of Onset Conversions - Other Mother cindi shirley neville Goiter (Diffuse Nontoxic) Heart disease Mother cindi shirley neville Hypertension Mother cindi stamper alfredito kelin Stroke Mother cindi stamper alfredito kelin COPD Mother cindi stamper alfredito kelin Alpha-1 antitrypsin deficiency Mother cindi stamper alfredito kelin Arthritis Father Doron Antunez Hypercholesterolemia Father Doron Antunez Obesity Father Doron Antunez COPD Father Doron Antunez Alcohol abuse Father Doron Antunez Diabetes Sibling Cancer Other Doron Antunez Conversions - Other Other Goiter (Diffuse Nontoxic) Heart disease Other Cindi Marry Shirley Neville documented in this encounter Plan of Treatment Upcoming Encounters Date Type Department Care Team (Late st Contact Info) Description 12/06/2024 11:20 AM EDT Office Visit [facility] Internal Medicine [address] [place] [phone] Alisa Kunz, DO [address] [place] [address] 12/23/2024 4:00 PM EDT Office Visit [facility] Medicine Specialties [address] [place] [phone] Lavern Shoemaker MD [address] [place], [place] [phone] 02/02/2025 8:40 AM EST Office Visit [facility] [address] [place] [phone] Alisa Kunz, DO [address] [place] [phone] 02/09/2025 12:20 PM EST Office Visit [facility] Endocr[facility]ology [address] [place] [phone] Anne-Marie Kolb, SUPERVISOR VENE[employer] [address] [facility] [address] [place] [phone] documented as of this encounter Results * (ABNORMAL) Protime-INR (09/27/2024 2:29 PM EDT) Prothrombin Time 19.5(H) 12.0 - 14.3 sec LAB COAGULATION METHOD 09/27/2024 5:42 PM EDT [facility] INR 1.6(H) 0.9 - 1.1 LAB COAGULATION METHOD 09/27/2024 5:42 PM EDT [facility] Blood Venous blood specimen / Unknown Venipuncture / Unknown 09/27/2024 2:29 PM EDT 09/27/2024 2:29 PM EDT Narrative [facility] - 09/27/2024 5:42 PM EDT OPTIMAL INR RANGES FOR PATIENT ON ORAL ANTICOAGULANT THERAPY Prevention of venous thromboembolism INR 2.0 to 3.0 In patients with heart disease: Atrial fibrillation INR 2.0 to 3.0 Valvular heart disease INR 2.0 to 3.0 Tissue heart valves INR 2.0 to 3.0 Mechanical prosthetic valves INR 2.5 to 3.5 Prevention of recurrent UT INR 2.5 to 3.5 us June Ashley SUPERVISOR [employer] LAB BLOOD ORDERABLES Final Result [facility] [address] [place] [address] documented in this encounter Visit Diagnoses Diagnosis Pleural effusion- Primary Unspecified pleural effusion Longstanding persistent atrial fibrillation (CMS/HCC) Dizziness and giddiness Health care maintenance documented in this encounter Additional Health Concerns Assessment Noted Time PHQ-9 Depression Total Score: 0 09/09/19 25 11:19 AM EDT A fall risk assessment has been complete d for the patient 09/27/2024 1:32 PM EDT A Body Mass Index follow-up plan has been documented for the patient 09/27/2024 2:05 PM EDT documented as of this encounter Care Teams Cattle [employer] Wheat Farmer Relationship Specialty Start Date End Date Alisa Kunz DO [address] [place] [address] PCP - General Internal Medicine 03/13/21 Kodi Bustos DO [address] [phone] Surgeon Cardiothoracic Surgery 11/06/22 Sujit Arriola MD [address] [place] [address] Consulting Physician Pulmonary Disease 11/06/22 Sujit Reyes MD [address] [place] [address] Referring Physician 12/04/22 Patricia Yañez LPN [facility] TCM Nurse 08/25/24 10/17/24 Zee Lazar DO [address] [place] [phone] Resident 09/08/24 documented as of this encounter
--- OUTSIDE RECORDS SUMMARY | 2024-10-07 12:50 | XMS_ITS | Encounter Summary ---
Author Organization Healthcare Address [address] [place] [address] Care Team Providers Care Outpatient Program Coordinator Name Role Phone ZeAlisa willett Torri DO Primary Care Provider [phone] Kodi Bustos DO Unavailable [phone] Sujit Arriola MD Unavailable [phone] uSjit Reyes MD Unavailable [phone] Patricia Yañez LPN Unavailable Unavailab Zee Lr DO Unavailable [phone] Reason for Visit * Reason Comments Throat Problem Mouth feels like it is on fire * Consultation (Routine) - Closed Specialty Diagnoses / Procedures Referred By Contdarwin t Referred To Contact Otolaryngology Diagnoses Oral herpes simplex infection Alex Mg MD [address] [place] [address] Phone: tel: fax: [place] [facility] [address] [place] [address] Phone: tel: fax: Referral ID Status Reason Start Date Expiration Date V isits Requested Visits Authorized [id number] Closed Specialty Services Required 09/15/2024 03/17/2026 1 1 Encounter Details Date Type Department Care Team (Late st Contact Info) Description 10/07/2024 12:50 PM EDT Office Visit [place] [facility] [address] [place] [address] Chris Pepe MD [address] [place] [address] Recurrent aphthous ulcer (Primary Dx); [...] How often do you attend chur or anabaptist services? 1 to 4 times per year [...] Recorded Patient Health Questionnaire-2 Score 0 09/08/2024 [facility] - Occupational Stress Questionnaire Answer Date Recorded [...] drink first t anselmo in the morning (EYE-FOUNTAIN SERVER) to steady your nerves or to get rid of a hangover? 0 08/14/2024 CAGE Questionnaire Score 0 025 Utilities Answer Date Recorded In the past 12 months has th e [employer], gas, oil, or water [employer] threatened to shut off services in your [...] crush, chew, or split., Disp: , Rfl: Ovhwaelhqvr-Fdxuczizy-Sveqjt (Trelegy Ellipta) 200-62.5-25 MCG/ACT aerosol powder , [...] Description 12/06/2024 11:20 AM EDT Office Visit [facility] Internal Medicine [address], [address] [place] [address] Alisa Kunz DO [address] [place] [address] 12/23/2024 4:00 PM EDT [facility] Visit [facility] [address] [place] [address] Lavern Shoemaker MD [address] [place], [place] [id number] 02/02/2025 8:40 AM EST Office Visit [facility] Internal Medicine [address] [place] [address] Ailsa Kunz DO [address] [place] [address] 02/09/2025 12:20 PM EST Office Visit [facility] Endocrinology [address] [place] [address] Anne-Marie Kolb L, TOOL SPECIALIST [address] [place] [address] documented as of this encounter Visit Diagnoses [...] documented as of this encounter Care Teams Outpatient Program Coordinator Relationship Specialty Start Date End Date Alisa Kunz DO [address] [place] [address] PCP - General Internal Medicine 03/13/21 Kodi Bustos DO [address] [address] Surgeon Cardiothoracic Surgery 11/06/22 Sujit Arriola MD [address] [place] [address] Consulting Physician Pulmonary Disease 11/06/22 Sujit Reyes MD [address] [place] [address] Referring Physician 12/04/22 Patricia Yañez LPN [facility] TCM Nurse 08/25/24 10/17/24 Zee Lazar DO [address] [place] [address] Resident 09/08/24 documented as of this encounter
--- OUTSIDE RECORDS SUMMARY | 2024-10-12 09:52 | XMS_ITS | Encounter Summary ---
[facility] [address] [place] [address] Care Team Providers Care Cardiovascular Sonographer Name Role Phone Alisa Kunz Primary Care Provider [phone] Reason for Referral * Cardiac (Routine) - Closed Specialty Diagnoses / Procedures Referred By Luis Armando t Referred To Contact Diagnoses Paroxysmal atrial fibrillation Procedures Cardioversion External in Cardiology Department Naveen Velasquez MD [facility] [place] [address] Phone: tel: fax: Referral ID Status Reason Start Date Expiration Date Visits Re quested Visits Authorized [id number] Closed 10/12/2024 01/04/2026 1 1 Reason for Visit * Cardiac (Routine) - Closed Specialty Diagnoses / Procedures Referred By Luis Armando mckeon Referred To Contact Diagnoses Paroxysmal atrial fibrillation Procedures Cardioversion External in Cardiology Department [facility] [address] [place] [address] Phone: tel: fax: Referral ID Status Reason Start Date Expiration Date Visits Re quested Visits Authorized [id number] Closed 10/12/2024 01/04/2026 1 1 Encounter Details Date Type Department Care Team (Late st Contact Info) Description 10/12/2024 9:52 AM EDT - 10/12/2024 4:46 PM EDT Hospital Encounter [facility] [address] [place] [address] Naveen Velasquez MD [address] [facility] [address] [address] [place] [address] Paroxysmal atrial fibrillation Discharge Disposition: Home or Self Care Social [...] Sign Reading Time Taken Comments Blood Pressure 132/59 10/12/2024 4:15 PM EDT Pulse 60 10/12/2024 4:15 PM EDT Temperature 36 C (96.8 F) 10/12/2024 10:14 AM EDT Respiratory Rate 14 10/12/2024 3:10 PM EDT Oxygen Saturation 99% 10/12/2024 4:15 PM EDT Inhaled Oxygen Concentration - - Weight 59.9 kg (132 lb) 10/12/2024 3:28 PM EDT Height 163 cm (5' 4.17 ) 10/12/2024 3:28 PM EDT Body Mass Index 22.54 10/12/2024 3:28 PM EDT documented in this encounter Functional [...] 10:26 AM EDT Cece Prieto RN * [place] Suicide Severity Rating Scale (Screener/Recent Self-Report) Question Answer Date of Assessment Author 6. Suicidal Behavior (Lifetime) No 10:26 AM EDT Cece Prieto RN documented as of this encounter Discharge Instructions * Discharge Instr - Activity* Cece Prieto RN - 10/12/2024 4:17 PM EDT Take one and a half tablets (7.5 mg) of coumadin today. * Attachments The following attachments cannot be sent through Care Everywhere. * Transesophageal Echocardiogram (Maldivian) * Moderate Conscious Sedation Adult Care After (Maldivian) * Warfarin Tablets (Maldivian) * Atrial Fibrillation Tfwe-cs-Kumd (Maldivian) documented in this encounter Medications at Time of Discharge acetaminophen (TYLENOL) 500 MG tablet Take 2 tablets by mouth Every 6 (Six) Hours As Needed. aspirin 81 MG EC tablet Take 1 tablet by mouth Every Night. brimonidine (ALPHAGAN) 0.2 % ophthalmic solution Administer 1 drop to both eyes Every Night. 06/16/2023 Calcium Citrate-Vitamin D (CALCIUM + D PO) Take 1 tablet by mouth Daily. cetirizine (zyrTEC) 10 MG tablet Take 1 tablet by mouth Every Night. DULoxetine (CYMBALTA) 20 MG capsule Take 1 capsule by mouth Every Morning. DULoxetine (CYMBALTA) 60 MG capsule Take 1 capsule by mouth Every Morning. 60mg and 20mg in the morning ezetimibe (ZETIA) 10 MG tablet TAKE 1 TABLET DAILY 90 tablet 3 09/06/2024 folic acid (FOLVITE) 1 MG tablet Take 1 tablet by mouth Daily. furosemide (LASIX) 20 MG tablet Take 1 tablet by mouth As Needed (take for edema, increase in weight 3 lbs.). 90 tablet 3 02/17/2024 gabapentin (NEURONTIN) 100 MG capsule Take by mouth 2 (Two) Times a Day. 300 mg po qam and 600 mg po qpm 08/29/2022 glucagon (GLUCAGEN) 1 MG injection Inject 1 mg under the skin into the appropriate area as directed. 02/04/2024 glucose (DEX4) 4 GM chewable tablet Chew 4 tablets. 11/24/2023 hydroxychloroqui ne (PLAQUENIL) 200 MG tablet Take 1 tablet by mouth Every Night. 12/06/2022 Insulin Glargine (TOUJEO SOLOSTAR SC) Inject 6 Units under the skin into the appropriate area as directed 2 (Two) Times a Day. Insulin Lispro (humaLOG) 100 UNIT/ML injection Inject 3 Units under the skin into the appropriate area as directed 3 (Three) Times a Day Before Meals. latanoprost (XALATAN) 0.005 % ophthalmic solution Administer 1 drop to both eyes Every Night. 6 06/16/2018 levothyroxine (SYNTHROID, LEVOTHROID) 125 MCG tablet Take 1 tablet by mouth Daily. metoprolol succinate XL (TOPROL-XL) 25 MG 24 hr tablet Take 1 tablet by mouth Daily. 90 tablet 3 12/08/2023 mycophenolate (CELLCEPT) 500 MG tablet Take 2 tablets by mouth 2 (Two) Times a Day. PT. HAS NOT STARTED THIS YET. nitroglycerin (NITROSTAT) 0.3 MG SL tablet 1 under the tongue as needed for angina, may repeat q5mins for up three doses 25 tablet 1 04/12/2024 pitavastatin calcium (LIVALO) 2 MG tablet tablet Take 1 tablet by mouth Every Night. spironolactone (ALDACTONE) 25 MG tablet Take 0.5 tablets by mouth Daily. 07/20/2024 Trelegy Ellipta 200-62.5-25 MCG/INH inhaler Inhale 1 puff Daily. 07/18/2021 Urine Glucose-Ketones Test (Keto-Diastix) strip Use daily as needed per endocrinology 02/04/2024 warfarin (COUMADIN) 5 MG tablet TAKE 1/2 TO 1 TABLET ONCE A DAY OR DIRECTED TAKE 7.5 mg on 10/12/2024. 30 tablet 2 10/12/2024 documented as of this encounter H&P Notes * Naveen Velasquez MD - 10/12/2024 10:35 AM EDT Cardiology H&P Michelle Felipe 1950 There is no work phone number on file. 10/12/24 DATE OF ADMISSION: 10/12/2024 [facility] Alisa Tanner, DO [address] / [facility] [address] Referring Provider: Naveen Velasquez MD CC: AFIB Problem List: Ischemic heart disease: CABG, Dr. Timur Lopez, July 1999 (SHEEHAN to distal LAD,SVG to first diagonal, SVG to second diagonal, SHAR Hernandez metal stenting of the ostium of the SVG to second diagonal, Rotational atherectomy/PTCA ofRCA and SVG to second diagonal in-stent. PTCRA/stenting of proximal RCA in-stent restenosis and rotational atherectomy/PTCA of SVG to seconddiagonal. Brachy therapy for in-stent restenosis of proximal dominant RCA, 04/16/2001, LVEF (65%). [facility]: Dr. Thakkar for acute ND, 01/10/2007: Normal LV function and wall motion, Patent SVG to second diagonal, Patent SEHEHAN graft to LAD, 50% ostial stenosis of SVG to first diagonal, JANA Taxus stenting of mid RCA stenosis. Mild reversible anteroischemia - Cardiac SPECT (scan date ?), LVEF (77%). [facility], May 2011, [facility], reportedly revealed no disease (data deficit) in setting of diabetic ketoacidosis associated with acute respiratory failure requiring mechanical ventilation x 5 days. Echocardiogram 04/12/16: LVEF 70%, mild MR, AV sclerosis Myocardial perfusion study 02/17/2017: Wnl, EF 70% Echo, 05/18/21, EF 60%, Mild MS [facility] PTCA RCA ISR: Patent Grafts. 04/30 Echo [...] 60%. Mild to moderate AI. Mild MS. Hypertension. Bradycardia/multiple syncopal episodes August 2018 with and without prodrome 08/26 3rd degree AV block SJ PPM - GFT CVA 04/27 [facility], outpt monitor demonstrated Afib 40% carotid plaque [...] carpal tunnel release. Laparotomy for adhesions, remote. History of Present Illness: Patient presents today for external cardioversion. She has a history of sick sinus syndrome with a [employer] pacemaker placed in the past and more recently she has become dependent with 100% RV pacing. She was seen by Dr. Velasquez in July and found to be in persistent atrial fibrillation. Since then she has been feeling fatigued and short of breath with weakness. She has presented here for cardioversion 2 weeks ago but her INR was subtherapeutic at 1.6. Today she will need to undergo KENIA cardioversion. Allergies Allergen Reactions Lipitor [Atorvastatin] Myalgia Morphine And Codeine Hallucinations Rosuvastatin Unknown - Low Severity Azathioprine Unknown (See Comments) Keflex [Cephalexin] Rash Penicillins Rash Pravachol [Pravastatin] Other (See Comments) Doesn't remember this rxn-from 3 yrs ago Tetracyclines & Related Rash Prior to Admission Medications Prescriptions Last Dose Informant Patient Reported? Taking? warfarin (COUMADIN) 5 MG tablet 10/11/2024 No Yes TAKE 1/2 TO 1 TABLET ONCE A DAY OR DIRECTED Patient taking differently: TAKE 1/2 TO 1 TABLET ONCE A DAY OR DIRECTED. TAKES WARFARIN 2.5 MG PO ON FRIDAY AND 5 MG THE OTHER DAYS OF THE WEEK. acetaminophen (TYLENOL) 500 MG tablet Yes Yes Take 2 tablets by mouth Every 6 (Six) Hours As Needed. aspirin 81 MG EC tablet 10/11/2024 Yes Yes Take 1 tablet by mouth Every Night. brimonidine (ALPHAGAN) 0.2 % ophthalmic solution Yes Yes Administer 1 drop to both eyes Every Night. Calcium Citrate-Vitamin D (CALCIUM + D PO) 10/12/2024 Self Yes Yes Take 1 tablet by mouth Daily. cetirizine (zyrTEC) 10 MG tablet Yes Yes Take 1 tablet by mouth Every Night. DULoxetine (CYMBALTA) 20 MG capsule Yes Yes Take 1 capsule by mouth Every Morning. DULoxetine (CYMBALTA) 60 MG capsule 10/12/2024 Yes Yes Take 1 capsule by mouth Every Morning. 60mg and 20mg in the morning ezetimibe (ZETIA) 10 MG tablet No Yes TAKE 1 TABLET DAILY Patient taking differently: Take 1 tablet by mouth Every Night. folic acid (FOLVITE) 1 MG tablet Yes Yes Take 1 tablet by mouth Daily. furosemide (LASIX) 20 MG tablet No Yes Take 1 tablet by mouth As Needed (take for edema, increase in weight 3 lbs.). gabapentin (NEURONTIN) 100 MG capsule Yes Yes Take by mouth 2 (Two) Times a Day. 300 mg po qam and 600 mg po qpm glucagon (GLUCAGEN) 1 MG injection Yes Yes Inject 1 mg under the skin into the appropriate area as directed. glucose (DEX4) 4 GM chewable tablet Yes Yes Chew 4 tablets. hydroxychloroquine (PLAQUENIL) 200 MG tablet Yes Yes Take 1 tablet by mouth Every Night. Insulin Glargine (TOUJEO SOLOSTAR SC) 10/12/2024 Self Yes Yes Inject 6 Units under the skin into the appropriate area as directed 2 (Two) Times a Day. Insulin Lispro (humaLOG) 100 UNIT/ML injection 10/11/2024 Yes Yes Inject 3 Units under the skin into the appropriate area as directed 3 (Three) Times a Day Before Meals. latanoprost (XALATAN) 0.005 % ophthalmic solution Yes Yes Administer 1 drop to both eyes Every Night. levothyroxine (SYNTHROID, LEVOTHROID) 125 MCG tablet 10/12/2024 Self Yes Yes Take 1 tablet by mouth Daily. metoprolol succinate XL (TOPROL-XL) 25 MG 24 hr tablet 10/12/2024 No Yes Take 1 tablet by mouth Daily. mycophenolate (CELLCEPT) 500 MG tablet Yes Yes Take 2 tablets by mouth 2 (Two) Times a Day. PT. HAS NOT STARTED THIS YET. nitroglycerin (NITROSTAT) 0.3 MG SL tablet No Yes 1 under the tongue as needed for angina, may repeat q5mins for up three doses Patient taking differently: 1 under the tongue as needed for angina, may repeat q5mins for up threedoses. PT. HAS NOT HAD TO TAKE THIS YET. pitavastatin calcium (LIVALO) 2 MG tablet tablet Yes Yes Take 1 tablet by mouth Every Night. spironolactone (ALDACTONE) 25 MG tablet Yes Yes Take 0.5 tablets by mouth Daily. Trelegy Ellipta 200-62.5-25 MCG/INH inhaler Yes Yes Inhale 1 puff Daily. Urine Glucose-Ketones Test (Keto-Diastix) strip Yes Yes Use daily as needed per endocrinology Current Facility-Administered Medications: enoxaparin sodium (LOVENOX) syringe 60 mg, 1 mg/kg, Subcutaneous, Once, Ekaterina Rand PA etomidate (AMIDATE) injection 6 mg, 0.1 mg/kg, Intravenous, Once, Naveen Velasquez MD fentaNYL citrate (PF) (SUBLIMAZE) injection 50-100 mcg, 50-100 mcg, Intravenous, Once PRN, Naveen Velasquez MD flumazenil (ROMAZICON) injection 0.5 mg, 0.5 mg, Intravenous, Once PRN, Naveen Velasquez MD midazolam (VERSED) injection 2-8 mg, 2-8 mg, Intravenous, Once PRN, Naveen Velasquez MD naloxone (NARCAN) injection 0.4 mg, 0.4 mg, Intravenous, Once PRN, Naveen Velasquez MD Social History Socioeconomic History Marital status: Tobacco Use Smoking status: Never Passive exposure: Never Smokeless tobacco: Never Vaping Use Vaping status: Never Used Substance and Sexual Activity Alcohol use: Yes Alcohol/week: 2.0 - 3.0 standard drinks of alcohol Types: 1 - 2 Cans of beer, 1 Shots of liquor per week Comment: 1-2 beer at night, occassional rum Drug use: No Sexual activity: Not Currently Partners: Male control/protection: None Family History Problem Relation Age of Onset COPD Mother Stroke Mother Heart disease Mother COPD Father REVIEW OF SYSTEMS: CONSTITUTIONAL: No weight loss, fever, chills, + weakness + fatigue. HEENT: No visual loss, blurred vision, double vision, yellow sclerae. No hearing loss, congestion, sore throat. SKIN: No rashes, urticaria, ulcers, sores. RESPIRATORY: + shortness of breath, - hemoptysis, cough, sputum. GI: No anorexia, nausea, vomiting, diarrhea. No abdominal pain, melena. : No burning on urination, hematuria or increased frequency. ENDOCRINE: No diaphoresis, cold or heat intolerance. No polyuria or polydipsia. NEURO: No headache, dizziness, syncope, paralysis, ataxia, or parasthesias. No change in bowel or bladder control. No history of CVA/TIA MUSCULOSKELETAL: No muscle, back pain, joint pain or stiffness. HEMATOLOGY: No anemia, bleeding, bruising. No history of DVT/PE. PSYCH: No history of depression, anxiety Vitals: 10/12/24 1000 10/12/24 1014 10/12/24 1026 BP: 171/74 147/71 BP Location: Left arm Right arm Patient Position: Sitting Sitting Pulse: 60 60 Resp: 18 Temp: 96.8 ??F (36 ??C) TempSrc: Temporal Weight: 60.1 kg (132 lb 6.4 oz) Height: 162.6 cm (64 ) Vital Sign Min/Max for last 24 hours Temp Min: 96.8 ??F (36 ??C) Max: 96.8 ??F (36 ??C) BP Min: 147/71 Max: 171/74 Pulse Min: 60 Max: 60 Resp Min: 18 Max: 18 No data recorded Flow (L/min) (Oxygen Therapy) Min: 2 Max: 2 No intake or output data in the 24 hours ending 10/12/24 1118 Physical Exam: GEN: Well nourished, Well- developed No acute distress HEENT: Normocephalic, Atraumatic, PERRLA, moist mucous membranes NECK: supple, NO JVD, no thyromegaly, no lymphadenopathy CARDIAC: S1S2 RRR no murmur, gallop, rub LUNGS: Clear to ausculation, normal respiratory effort ABDOMEN: Soft, nontender, normal bowel sounds EXTREMITIES:No gross deformities, No clubbing, cyanosis, or edema SKIN: Warm, dry NEURO: No focal deficits PSYCHIATRIC: Normal affect and mood I personally viewed and interpreted the patient's EKG/Telemetry/lab data Data: Results from last 7 days Lab Units 10/12/24 1020 WBC 10*3/mm3 7.80 HEMOGLOBIN g/dL 11.2* HEMATOCRIT % 36.8 PLATELETS 10*3/mm3 289 Results from last 7 days Lab Units 10/12/24 1020 PROTIME Seconds 17.8* INR 1.37* No intake or output data in the 24 hours ending 10/12/24 1118 Lab Results Component Value Date INR 1.37 (H) 10/12/2024 INR 2.04 10/04/2024 INR 1.6 (H) 09/27/2024 PROTIME 17.8 (H) 10/12/2024 PROTIME 20.5 (H) 09/24/2024 PROTIME 24.2 (H) 09/22/2024 Telemetry: V paced 70 bpm, underlying AFIB Assessment and Plan: 1. PAF: Now persistent for several months. She is very symptomatic in nature. She has a lot going on but we had a long discussion that the fact that she is in A-fib may make her be feeling worse. Will attempt cardioversion and oriental orthodox of normal sinus rhythm to see if this makes her feel better.Will pursue KENIA prior to cardioversion as her INR 2 weeks ago was only 1.6. It is therapeutic now. The risks, benefits, and alternatives of the procedure have been reviewed and the patient wishes to proceed. 2. CHB: PPM implant-Normal interrogation. 3 years on battery. 3. CAD: Remote CABG, CBI 2020 ISR RCA. Patent grafts. Normal EF, Mild MS 4. DHF - follows with Dr. Reyes. 5. Pleural Effusions: lupus related, follows with pulmonology at , s/p thoracentesis and pleurodesis Will give dose of Lovenox 1 mg/kg now and do KENIA cardioversion in 2 hours. Electronically signed by LUIS Morillo, 10/12/24, 10:40 AM EDT. documented in this encounter Procedure Notes * Paolo Christina MD - 10/12/2024 3:32 PM EDT Post KENIA note Discussed risk and benefits of procedure. Decided to proceed. Tolerated sedation well. Probe placedand removed without issue. Contrast agents used. No immediate complication. Left atrial appendage: dilated with diminished velocities. Difficult to assess. Contrast used. Large filling defect consistent with thrombus in distal left atrial appendage. Poor filling of left atrial appendage. Left atrium: severely dilated. PFO present. LV: not well secondary to shadowing. Limited TTE images to follow. LV function appears presrved RV: dilated. Device wires apprecaited Aortic valve: calcified with limited excursion. No aortic stenosis. AI present. Difficult transgastric views. Getting limited TTE to better assess pressure half time. Mitral samaria: mild to moderate MR. Multiple small jets. 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 Ruptured chordae present. Mild mitral stenosis. Flow in pulmonary veins not consistent with severe MR. Pulmonic valve: normal Tricuspid valve: Moderate TR documented in this encounter Plan of Treatment Upcoming Encounters Date Type Department Care Team (Late st Contact Info) Description 11/28/2024 7:45 PM EDT Appointment [facility] [address] [facility] [address] [place] [id number] 12/02/2024 3:30 PM EDT Office Visit [facility] [address] [place] [address] [place] [address] Sujit Reyes MD [address] [facility] [address] [place], [place] [id number] 01/19/2025 1:45 PM EST Office Visit [facility] [address] [facility] [address] [place] [phone] Naveen Velasquez MD [address] [facility] [address] [place], [place] [id number] documented as of this encounter Procedures Procedure Name Priority Date/Time Associated Diagnosis Comments CARDIOVERSION EXTERNAL IN CARDIOLOGY DEPARTMENT Routine 10/12/2024 3:27 PM EDT Paroxysmal atrial fibrillation KENIA W/ CONTRAST, LIMITED DOPPLER AND COLOR Routine 10/12/2024 3:27 PM EDT PROTIME-INR STAT 10/12/2024 10:20 AM EDT CBC (NO DIFF) STAT 10/12/2024 10:20 AM EDT documented in this encounter Results * KENIA W/ CONTRAST, LIMITED DOPPLER AND COLOR (10/12/2024 3:27 PM EDT) Ao pk janna 155.0 cm/sec Ao max PG 9.6 mmHg Ao mean PG 6.0 mmHg Ao V2 VTI 34.2 cm AI P1/2t 518.0 msec MV max PG 7.9 mmHg MV mean PG 2.5 mmHg MV V2 VTI 33.4 cm MV P1/2t 115.4 msec MVA(P1/2t) 1.91 cm2 MV dec slope 401.0 cm/sec2 Anatomical Region Laterality Modality Other Narrative 10/12/2024 3:49 PM EDT Left atrial appendage: dilated with diminished velocities. Difficult to assess. Contrast used. Large filling defect consistent with thrombus in distal left atrial appendage. Poor filling of left atrial appendage. Left atrium: severely dilated. PFO present. LV: LVEF 60%. LVH present, moderate, concentric RV: dilated. Device wires apprecaited Aortic valve: calcified with limited excursion. No aortic stenosis. Mild AI Mitral samaria: mild to moderate MR. Multiple small jets. 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 Ruptured chordae present, heavily calcified. Mild mitral stenosis. Flow in pulmonary veins not consistent with severe MR. Pulmonic valve: normal Tricuspid valve: Moderate TR Enhancement Agent Details Written consent was obtained to use Lumason image enhancer in order to optimize the study. KENIA Procedure Details Informed consent for Transesophageal Echocardiogram, and use of contrast as needed, was obtained prior to the procedure. The procedure was performed in the Cardio-Vascular/Close observation unit. Patient was noted to be in a fasting state, with a peripheral IV in place. A bite block was placed for probe protection. Cetacaine spray was used as an oropharyngeal topical anesthetic. Moderate sedation was utilized. The following medication(s) were administered during the procedure: 25 mcg of Fentanyl 2 mg of Versed 4 Etomidate An adult multi-frequency, multiplane transesophageal echocardiographic endoscope was inserted and manipulated in the standard fashion to achieve multiplane views. Transesophageal probe was able to be passed without difficulty. Usual basal, mid-esophageal, transgastric, and aortic views were obtained. The patient's vital signs, including blood pressure, heart rate, pulse oximetry, and cardiac rhythm were monitored throughout the procedure. Vitals signs remained stable throughout the study. The patient tolerated the procedure without evidence of oropharyngeal or esophageal trauma. Ekaterina SMITH CV ECHO ORDERABLES Final Resul t * Cardioversion External in Cardiology Department (10/12/2024 3:27 PM EDT) Anatomical Region Laterality Modality Other Narrative 10/12/2024 3:41 PM EDT Not performed secondary to left atrial appendage thrombus Cardioversion Procedure Moderate sedation was utilized. Cardioversion Shock 1 0 joules delivered to patient. Nvaeen Velasquez MD CV CARDIAC SERVICES ORDERABL ES Final Result * (ABNORMAL) Protime-INR (10/12/2024 10:20 AM EDT) Protime 17.8(H) 12.2 - 15.3 Seconds 10/12/2024 11:00 AM EDT [facility] INR 1.37(H) 0.89 - 1.12 10/12/2024 11:00 AM EDT [facility] Blood Line / Unknown 10/12/2024 10 :20 AM EDT 10/12/2024 10:40 AM EDT Naveen Velasquez MD LAB BLOOD ORDERABLES Final R esult [facility]
[address] [place] [address], * (ABNORMAL) CBC (No Diff) (10/12/2024 10:20 AM EDT) WBC 7.80 3.40 - 10.80 10*3/mm3 10/12/2024 10:48 AM EDT [facility] RBC 3.75(L) 3.77 - 5.28 10*6/mm3 10/12/2024 10:48 AM EDT [facility] Hemoglobin 11.2(L) 12.0 - 15.9 g/dL 10/12/2024 10:48 AM EDT [facility] Hematocrit 36.8 34.0 - 46.6 % 10/12/2024 10:48 AM EDT [facility] MCV 98.1(H) 79.0 - 97.0 fL 10/12/2024 10:48 AM EDT [facility] MCH 29.9 26.6 - 33.0 pg 10/12/2024 10:48 AM EDT [facility] MCHC 30.4(L) 31.5 - 35.7 g/dL 10/12/2024 10:48 AM EDT [facility] RDW 16.7(H) 12.3 - 15.4 % 10/12/2024 10:48 AM EDT [facility] RDW-SD 60.3(H) 37.0 - 54.0 fl 10/12/2024 10:48 AM EDT [facility] MPV 9.7 6.0 - 12.0 fL 10/12/2024 10:48 AM EDT [facility] Platelets 289 140 - 450 10*3/mm3 10/12/2024 10:48 AM EDT [facility] Blood Line / Unknown 10/12/2024 10 :20 AM EDT 10/12/2024 10:40 AM EDT Naveen Velasquez MD LAB BLOOD ORDERABLES Final R esult [facility]
[address] [place] [address], documented in this encounter Visit Diagnoses Diagnosis Paroxysmal atrial fibrillation Atrial fibrillation documented in this encounter Administered Medications Inactive Administered Medications - up to 3 most recent administrations Medication Order MAR Action Action Date Dose Rate Site enoxaparin sodium (LOVENOX) syringe 60 mg 60 mg (rounded from 60.1 mg = 1 mg/kg 60.1 kg), Subcutaneous, Once, On Fri10/12/24 at 1119, For 1 dose, Give subcutaneous in abdomen only. Do not massage site after injection., Indications: Atrial Fibrillation - requiring full anticoagulationIndications: Atrial Fibrillation - requiring full anticoagulation Given 10/12/2024 12:18 PM EDT 60 mg Left Lower Abdomen etomidate (AMIDATE) injection Code / Trauma / Sedation Medication, Starting on Fri10/12/24 at 1440 Given 10/12/2024 2:42 PM EDT 2 mg Given 10/12/2024 2:40 PM EDT 2 mg fentaNYL citrate (PF) (SUBLIMAZE) injection 50-100 mcg 50-100 mcg, Intravenous, Once As Needed, Severe Pain, Sedation, Starting on Fri10/12/24 at 1012, For 1 dose, Use filter needle to withdraw dose from ampule. Based on patient request - if ordered for moderate or severe pain, provider allows for administration of a medication prescribed for a lower pain scale. If given for pain, use the following pain scale: Mild Pain = Pain Score of 1-3, CPOT 1-2 Moderate Pain = Pain Score of 4-6, CPOT 3-4 Severe Pain = Pain Score of 7-10, CPOT 5-8 fentaNYL citrate (PF) (SUBLIMAZE) injection Code / Trauma / Sedation Medication, Starting on Fri10/12/24 at 1440 Given 10/12/2024 2:40 PM EDT 25 mcg flumazenil (ROMAZICON) injection 0.5 mg 0.5 mg, Intravenous, Once As Needed, Sedation Reversal, Starting on Fri10/12/24 at 1012, For 1 dose, give IV over 15-30 seconds midazolam (VERSED) injection 2-8 mg 2-8 mg, Intravenous, Once As Needed, Sedation, Starting on Fri10/12/24 at 1012, For 1 dose, If given IV Push: give slowly over at least 2 minutes, unless provider at bedside for induction. (JODIE) midazolam (VERSED) injection Code / Trauma / Sedation Medication, Starting on Fri10/12/24 at 1440 Given 10/12/2024 2:40 PM EDT 2 mg naloxone (NARCAN) injection 0.4 mg 0.4 mg, Intravenous, Once As Needed, Opioid Reversal, Starting on Fri10/12/24 at 1012, For 1 dose Sulfur Hexafluoride Microsph (LUMASON) 60.7-25 MG IV reconstituted suspension reconstituted suspension 5 mL 5 mL, Intravenous, Once in Imaging, On Fri10/12/24 at 1530, For 1 dose Given 10/12/2024 3:28 PM EDT 5 mL documented in this encounter Active and Recently Administered Medications Times are shown in EDT. Scheduled Medication Order 10/10/2024 10/11/2024 10/12/2024 enoxaparin sodium (LOVENOX) syringe 60 mg (COMPLETED) 60 mg (rounded from 60.1 mg = 1 mg/kg 60.1 kg), Subcutaneous, Once, On Fri10/12/24 at 1119, For 1 dose, Give subcutaneous in abdomen only. Do not massage site after injection., Indications: Atrial Fibrillation - requiring full anticoagulation 1218 (Given - Provid er: Sushila Woods RN) etomidate (AMIDATE) injection 6 mg 6 mg (rounded from 6.11 mg = 0.1 mg/kg 61.1 kg), Intravenous, Once, On Fri10/12/24 at 1015, For 1 dose 1015 (Due) Sulfur Hexafluoride Microsph (LUMASON) 60.7-25 MG IV reconstituted suspension reconstituted suspension 5 mL (COMPLETED) 5 mL, Intravenous, Once in Imaging, On Fri10/12/24 at 1530, For 1 dose 1528 (Given - Provid er: VINEET Carson) PRN Medication Order 10/10/2024 10/11/2024 10/12/2024 etomidate (AMIDATE) injection (COMPLETED) Code / Trauma / Sedation Medication, Starting on Fri10/12/24 at 1440 1440 (Given - Provid er: Cece Prieto RN)1442 (Given - Provider: Cece Prieto RN) fentaNYL citrate (PF) (SUBLIMAZE) injection 50-100 mcg 50-100 mcg, Intravenous, Once As Needed, Severe Pain, Sedation, Starting on Fri10/12/24 at 1012, For 1 dose, Use filter needle to withdraw dose from ampule. Based on patient request - if ordered for moderate or severe pain, provider allows for administration of a medication prescribed for a lower pain scale. If given for pain, use the following pain scale: Mild Pain = Pain Score of 1-3, CPOT 1-2 Moderate Pain = Pain Score of 4-6, CPOT 3-4 Severe Pain = Pain Score of 7-10, CPOT 5-8 1055 (Due) fentaNYL citrate (PF) (SUBLIMAZE) injection (COMPLETED) Code / Trauma / Sedation Medication, Starting on Fri10/12/24 at 1440 1440 (Given - Provid er: Cece Prieto, EVITA) flumazenil (ROMAZICON) injection 0.5 mg 0.5 mg, Intravenous, Once As Needed, Sedation Reversal, Starting on Fri10/12/24 at 1012, For 1 dose, give IV over 15-30 seconds 1056 (Due) midazolam (VERSED) injection 2-8 mg 2-8 mg, Intravenous, Once As Needed, Sedation, Starting on Fri10/12/24 at 1012, For 1 dose, If given IV Push: give slowly over at least 2 minutes, unless provider at bedside for induction. (JODIE) 1056 (Due) midazolam (VERSED) injection (COMPLETED) Code / Trauma / Sedation Medication, Starting on Fri10/12/24 at 1440 1440 (Given - Provid er: Cece Prieto RN) naloxone (NARCAN) injection 0.4 mg 0.4 mg, Intravenous, Once As Needed, Opioid Reversal, Starting on Fri10/12/24 at 1012, For 1 dose 1056 (Due) documented in this encounter Care Teams Cardiovascular Sonographer Relationship Specialty Start Date End Date Alisa Kunz DO [address] [place] [address] PCP - General Internal Medicine 04/26/21 documented as of this encounter
--- OUTSIDE RECORDS SUMMARY | 2024-10-14 11:00 | XMS_ITS | Encounter Summary ---
Author Organization [facility] Address [address] [place] [address] Care Team Providers Care Drug Worker Name Role Phone ZeAlisa willett Torri DO Primary Care Provider [phone] Kodi Bustos DO Unavailable [phone] Sujit Arriola MD Unavailable [phone] Sujit Reyes MD Unavailable [phone] Patricia Yañez LPN Unavailable Unavailab Zee Lr DO Unavailable [phone] Reason for Referral * Consultation (Routine) - Authorized Specialty Diagnoses / Procedures Referred By Contdarwin t Referred To Contact Diagnoses Recurrent pleural effusion on left Chronic hypoxic respiratory failure Obstructive lung disease ([facility]/HCC) Systemic lupus erythematosus (SLE) in adult ([facility]) Cristian Zimmer MD [address] [facility] [address] [place] [address] Phone: tel: fax: Referral ID Status Reason Start Date Expiration Date V isits Requested Visits Authorized [id number] Authorized 10/14/2024 04/15/2026 1 1 Reason for Visit * Reason Comments Follow-up * Consultation (Routine) - Closed Specialty Diagnoses / Procedures Referred By Contac t Referred To Contact Diagnoses Recurrent pleural effusion on left Chronic hypoxic respiratory failure Sen, Parijat, MD [address] [place] [address] Phone: tel: fax: Referral ID Status Reason Start Date Expiration Date Visits Re quested Visits Authorized [id number] Closed 07/08/2024 01/07/2026 1 1 Encounter Details Date Type Department Care Team (Latest Contact Info) Description 10/14/2024 11:00 AM EDT [facility] [address] [place] [address] Cristian Zimmer MD [address] [place] [address] Recurrent pleural effusion on left (Primary Dx); Chronic hypoxic respiratory failure; Obstructive lung disease ([facility]); Systemic lupus erythematosus (SLE) in adult ([facility]) Social History Tobacco Use Types Packs/Day Years [...] any clubs o r organizations such as religious groups, unions, fraternal or athletic groups, or school groups? No 08/30/2022 How often do you attend meet ings of the clubs or organizations you belong to? Never 08/30/2022 Are you , , di vorced, , never , or living with a partner? 08/30/2022 Overall Financial Resource Strain (CARDIA) Answe r Date Recorded How hard is it for you to pa y for the very basics like food, housing, medical care, and heating? Not hard at all 08/30/2022 PHQ-2 Answer Date Recorded Patient Health Questionnaire-2 Score 0 09/08/2024 [facility] - Occupational Stress Questionnaire Answer [...] by your partner or ex-partner? No 09/13/2024 AUDIT-C Answer Date Recorded Q1: How often do you have a drink containing alcohol? 4 or more times a week 10/14/2024 Q2: How many drinks containi ng alcohol do you have on a typical day when you are drinking? 1 or 2 Q3: How often do you have si x or more drinks on one occasion? 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) to steady your nerves or to [...] Sign Reading Time Taken Comments Blood Pressure 132/54 10/14/2024 10:59 AM EDT Pulse 60 10/14/2024 10:59 AM EDT Temperature 36.7 C (98.1 F) 10/14/2024 10:59 AM EDT Respiratory Rate 20 10/14/2024 10:59 AM EDT Oxygen Saturation 95% 10/14/2024 10:59 AM EDT Inhaled Oxygen Concentration - - Weight 60.9 kg (134 lb 4.2 oz) 10/14/2024 10:59 AM EDT Height 162.6 cm (5' 4 ) 10/14/2024 10:59 AM EDT Body Mass Index 23.05 10/14/2024 10:59 AM EDT documented in this encounter Functional Status * AUDIT-C Score Answer Date of Assessment Author 4 10/14/2024 11:04 AM EDT Rozina Vázquez * Question Answer Date of Assessment Author Q1: How often do you have a drink containing alcohol? 4 or more times a week 10/14/2024 11:04 AM EDT Rozina Shell Q2: How many drinks containing alcohol do you have on a typical day when you are drinking? 1 or 2 10/14/2024 11:04 AM EDT Rozina Power Q3: How often do you have six or more drinks on one occasion? Never 10/14/2024 11:04 AM EDT Rozina Power documented as of this encounter Miscellaneous Notes * Progress Notes - Cristian Zimmer MD - 10/14/2024 11:00 AM EDT PULMONARY FOLLOW-UP NOTE Established patient: Follow-up for chronic pleural effusion History Of Present Illness (From 09/15/24 note) Michelle Felipe is a 74 y.o. female with a PMH of 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, recurrent right pleural effusion who has a history of recurrent right pleural effusion since 2020 requiring multiple thoracentesis (total of 5) and chest tube 08/17/24. talc slurry pleurodesis 08/19/24 that failed. Now considering pleuroperitoneal shunt due to recurrence after pleurodesis. The patient was apparently referred here as follow-up to a recent hospitalization last month where she had a right-sided pleural tap where 1.1 L of pleural fluid was removed.. The patient says that she felt better after the pleural tap and continues to feel better. She thinks that her effusion has not gotten any worse since last month. She is walking around in her house using a walker to get someexercise and her breathing is at baseline. I asked her whether she had followed up with [facility] regarding the pleural peritoneal shunt. Shetold me that she has gotten several emails from them regarding setting up an appointment but did not respond to any of them and has lost the emails. She asked me whether she should contact them and go to their clinic. I explained to her how research projects like this work and that a first appointment would be for them to familiarize themselves with her and to answer all of her questions so that she can decide if she would like to proceed with this in the event that they find her to be a good candidate. She told me that Dr. Shoemaker had set up this appointment at [facility] and would probablyhave to do it again as they have stop sending the patient emails. Past Medical History Past Medical History[1] Past Surgical History Surgical History[2] Family History Family History[3] Social History reports that she has never smoked. She has been exposed to tobacco smoke. She has never used smokeless tobacco. She reports current alcohol use of about 4.0 standard drinks of alcohol per week. She reports that she does not use drugs. Occupational History (If relevant) Immunizations: Immunization History Administered Date(s) Administered ??? Hep A, Adult 06/11/2018, 06/11/2018, 06/11/2018, 01/23/2019, 01/23/2019, 01/24/2019, 01/24/2019, 01/24/2019 ??? Influenza, High-dose, Split Virus, Trivalent, Injectable, preservative free 12/19/2017, 01/18/2019, 11/27/2023 ??? Influenza, Unspecified 12/09/2019 ??? Influenza, high-dose, quadrivalent 12/19/2017, 12/19/2017, 12/19/2017, 01/18/2019, 01/18/2019, 01/18/2019, 01/18/2019, 12/05/2020, 12/05/2020, 12/05/2020, 01/28/2022, 01/09/2023 ??? Influenza, seasonal, injectable 12/08/2018 ??? Celery COVID-19 Vaccine (Purple Cap) 12+ 03/30/2020, 03/30/2020, 04/22/2020, 04/22/2020 ??? Pneumococcal Conjugate PCV 13 07/02/2016, 07/02/2016, 07/02/2016, 08/06/2019, 08/06/2019, 08/06/2019 ??? Pneumococcal Polysaccharide PPV23 06/11/2018, 06/11/2018, 06/11/2018, 12/09/2019 ??? Zoster, Recombinant 06/11/2018, 06/11/2018, 06/11/2018, 01/23/2019, 01/23/2019, 01/24/2019, 01/24/2019, 01/24/2019 VACCINE / DOSE DATE DATE DATE DATE DATE DATE Flu 12/08/2018 01/18/2019 12/09/2019 12/05/2020 01/28/2022 01/09/2023 Tetanus Pneumovax 07/02/2016 06/11/2018 08/06/2019 12/09/2019 Shingles 06/11/2018 01/23/2019 01/24/2019 Allergies Morphine, Morphine and codeine, Pravastatin, Azathioprine, Cephalexin, Codeine, Penicillins, Rosuvastatin, Seasonal ic [cholestatin], Statins, Tetracycline, and Tetracyclines & related Medications Current Medications[4] Items reviewed Review of Systems Last Recorded Vitals Visit Vitals LMP (LMP Unknown) OB Status Postmenopausal Smoking Status Never Physical Exam Constitutional: General: She is not in acute distress. Appearance: She is not toxic-appearing. HENT: Nose: Nose normal. Pulmonary: Effort: No respiratory distress. Breath sounds: Examination of the right-lower field reveals decreased breath sounds. Decreased breath sounds present. No wheezing, rhonchi or rales. Musculoskeletal: Right lower leg: No edema. Left lower leg: No edema. Skin: General: Skin is warm. Findings: Bruising (Many on the legs.) present. Neurological: General: No focal deficit present. Mental Status: She is alert and oriented to person, place, and time. Mental status is at baseline. Motor: Weakness present. Psychiatric: Mood and Affect: Mood normal. Behavior: Behavior normal. Thought Content: Thought content normal. Judgment: Judgment normal. Results: I personally viewed the images of the PA and lateral chest film that was performed today. Compared to the previous chest film dated September 11, 2024, there has been a reaccumulation of some of the fluid that was previously removed. However, compared to the film of September 09 which was prior to thoracentesis, there is less fluid than was visible then. Assessment/Plan Mrs. Felipe is a very pleasant woman with many serious conditions the most critical one from the viewpoint of pulmonary is recurrent pleural effusion especially on the right side. She was tapped on September 11 and has felt that her breathing was better since then. However, the chest films taken today show that there has been some reaccumulation. I will call the patient notify her of this and advise her that if she begins to notice shortness of breath she should go to the emergency room. She is on warfarin and that will have to be stopped before she has tapped again. She is trying to remain active and is walking around carefully at home with a walker. I am making no changes in her treatment today and will schedule her to come back and see Dr. Shoemaker in approximately two months. Assessment & Plan Recurrent pleural effusion on left Chronic hypoxic respiratory failure Obstructive lung disease ([facility]/HCC) Systemic lupus erythematosus (SLE) in adult ([facility]) I spent 45 minutes performing all or some of the following: Reviewing the history , performing an examination and evaluation, entering clinical information into the EHR, interpreting the results, counseling family/patient/caregiver, reviewing x-rays and laboratories, ordering the medications, testsand procedures, referring and communicating with consulting health patient care provider and care coordination. [1] Past Medical History: Diagnosis Date ??? 2019-nCoV acute respiratory disease 05/07/2022 ??? Alcohol use ??? Allergic 1973 ??? Anemia ??? Anxiety ??? Arthritis ??? Asthma ??? Cellulitis 02/13/2024 ??? Cellulitis of right leg 02/12/2024 ??? CHF (congestive heart failure) ([facility]) ??? Chronic respiratory failure 2019 ??? Clotting disorder ([facility]) ??? Congenital malformation ??? COPD (chronic obstructive pulmonary disease) ([facility]) 2018 ??? Coronary artery disease ??? CTS (carpal tunnel syndrome) ??? Dental disease ??? Depression ??? Diabetes mellitus type I (CMS/HCC) ??? Disease of thyroid gland ??? Eczema ??? Fracture of left proximal fibula 04/09/2021 - Left proximal fibula fracture on 02/2021 after a mechanical fall. - Established with orthopedic surgery, no surgical intervention, WBAT. ??? Heart disease ??? Hepatitis B 1960 ??? HL (hearing loss) ??? Hypertension ??? Hyperthyroidism 1960 ??? Hypothyroidism 1960 ??? Infectious viral hepatitis ??? Myocardial infarction (CMS/HCC) ??? Peripheral neuropathy ??? Pneumonia 06/01 ??? Post-menopausal bleeding 05/08/2021 - Isolated episode of vaginal spotting in early 2021, no recurrence. Was evaluated with OBGYN in 10/2021, no intervention at this time, if recurrence of bleeding will likely require endometrial biopsy. ??? 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 Red eye 05/13/2022 - Concerning for bacterial or viral conjunctivitis vs. Scleritis. - Needs [facility] eye exam. - Was ableto get patient [facility] with [facility] ophthal[facility] right after our clinic appointment (where shefollows regularly). - In the meantime, provided erythromycin eye ointment for bacterial conjunctivitis treatment. ??? Ringworm of body 04/09/2022 - Exam findings [...] is unlikely given lack of other syste ??? Seasonal allergies ??? Skin cancer 2023 ??? Sleep apnea, obstructive ??? Stroke (CMS/HCC) ??? Systemic lupus erythematosus, unspecified (CMS/HCC) Lupus ??? Varicella ??? Visual impairment [2] Past Surgical History: Procedure Laterality Date ??? ADENOIDECTOMY ??? ADRENAL GLAND SURGERY ??? ANKLE FRACTURE SURGERY ??? BREAST BIOPSY Right 2013 u/s core benign ??? CARDIAC PACEMAKER PLACEMENT N/A Pacemaker Placement from [facility] ??? CARPAL TUNNEL RELEASE N/A Neuroplasty Decompression Median Nerve At Carpal Tunnel from [facility] ??? CERVICAL BIOPSY W/ LOOP ELECTRODE EXCISION 2010 ??? SECTION, CLASSIC 1976, 1979 ??? SECTION, LOW TRANSVERSE N/A Section from [facility] ??? COLONOSCOPY N/A Complete Colonoscopy from [facility] ??? CORONARY ARTERY BYPASS GRAFT N/A CABG from [facility] ??? EYE SURGERY N/A Eye Surgery from [facility] ??? FRACTURE SURGERY ??? SPINE SURGERY ??? THORACENTESIS ??? TOE SURGERY Left 02/07/2024 hematoma removal of upper skin on L big toe ??? TONSILLECTOMY N/A Tonsillectomy from [facility] [3] Family History Problem Relation Name Age of Onset ??? Conversions - Other Mother cindi otf [place] Goiter (Diffuse Nontoxic) ??? Heart disease Mother cindi otf [place] ??? Hypertension Mother cindi otf [place] ??? Stroke Mother cindi otf [place] ??? COPD Mother cindi otf [place] ??? Alpha-1 antitrypsin deficiency Mother cindi otf [place] ??? Arthritis Father Doron Antunez ??? Hypercholesterolemia Father Doron Antunez ??? Obesity Father Doron Antunez ??? COPD Father Doron Antunez ??? Alcohol abuse Father Doron Antunez ??? Diabetes Sibling ??? Cancer Other Doron Antunez ??? Conversions - Other Other Goiter (Diffuse Nontoxic) ??? Heart disease Other Cindi Marry Neville [4] Current Outpatient Medications Medication Sig Dispense Refill ??? acetaminophen (Tylenol) 500 MG tablet Take 2 tablets by mouth every 6 hours as needed. ??? aspirin 81 MG EC tablet Take 1 tablet by mouth every evening. ??? Blood Glucose Monitoring Suppl (Blood Glucose Monitor System) w/Device kit Test blood sugars twice a day to calibrate cgm. Dx E10.65 1 kit 0 ??? cetirizine (ZyrTEC) 10 MG tablet Take 1 tablet by mouth every evening. ??? DULoxetine (Cymbalta) [address] capsule Take 1 capsule (20 mg) by mouth 1 (one) time each day inthe morning. Taking 80mg total 90 capsule 3 ??? DULoxetine (Cymbalta) [address] capsule Take 1 capsule by mouth daily. Do not crush or chew. Take in addition to one 20mg capsule for a total of 80mg daily. ??? enoxaparin (Lovenox) 100 MG/ML solution prefilled syringe Inject 0.9 mL under the skin every evening. (Patient not taking: Reported on 09/27/2024) 5 mL 1 ??? ezetimibe (Zetia) 10 MG tablet Take 1 tablet by mouth nightly. ??? ferrous sulfate 324 (65 Fe) MG EC tablet Take 1 tablet by mouth daily with breakfast. Do not crush, chew, or split. ??? Aonekbkmxdo-Kjionwdvj-Riplws (Trelegy Ellipta) 200-62.5-25 MCG/ACT aerosol powder Inhale 1 puff1 (one) time each day in the morning. 180 each 3 ??? folic acid (Folvite) 1 MG tablet Taking 1 tablet five days of the week 90 tablet 1 ??? furosemide (Lasix) 80 MG tablet Take 1 tablet by mouth daily. 30 tablet 0 ??? gabapentin (Neurontin) 300 MG capsule TAKE 1 CAPSULE BY MOUTH 2 TIMES A DAY 60 capsule 2 ??? glucose blood test strip Use to test blood sugars twice a day to calibrate cgm. Dx 10.65 100 each 12 ??? hydroxychloroquine (Plaquenil) 200 MG tablet Take 1.5 tablets by mouth daily. 45 tablet 5 ??? insulin glargine (Toujeo SoloStar) 300 UNIT/ML injection pen (1 UNIT DIAL) Inject 14 Units under the skin every morning. (Patient taking differently: Inject 6 Units under the skin 2 times a day.)4.5 mL 3 ??? insulin lispro (HumaLOG KWIKPEN) 100 UNIT/ML injection pen Inject 2-6 units before meals plus 1:60>150. Max tdd 30 units 30 mL 2 ??? Lancets misc Use twice a day to calibrate cgm Dx E10.65 100 each 3 ??? latanoprost (Xalatan) 0.005 % ophthalmic solution Administer 1 drop into both eyes nightly. ??? levothyroxine (Synthroid, Levoxyl) 125 MCG tablet Take 1 tablet (125 mcg) by mouth 1 (one) timeeach day before breakfast. 90 tablet 3 ??? magic mouthwash (lidocaine, diphenhydramine, Maalox 1:1:1) Swish and spit 15 mL every 4 hours as needed for mucositis. Shake Well. 2700 mL 11 ??? magnesium oxide (Mag-Ox) 400 mg tablet Take 1 tablet by mouth daily. ??? metoprolol succinate XL (Toprol-XL) 25 MG 24 hr tablet Take 1 tablet by mouth every morning. ??? mycophenolate (CellCept) 500 MG tablet Take 2 tablets by mouth 2 times a day. 360 tablet 1 ??? nitroglycerin (Nitrostat) 0.[address] 1 tablet under the tongue every 5 minutes as needed for chest pain. ??? oxygen (O2) gas Inhale 2 L nightly. via nasal canula ??? Pitavastatin Calcium (Livalo) 4 MG tablet Take 1 tablet by mouth daily. 90 tablet 0 ??? Probiotic Product (acidophilus probiotic blend) capsule Take 1 capsule by mouth daily. ??? spironolactone (Aldactone) 25 MG tablet Take 0.5 tablets by mouth daily. (Patient taking differently: Take 0.5 tablets by mouth daily. Taking 1/4th tablet d/t feeling dizzy when she takes it) ??? sucralfate (Carafate) 1 GM/10ML suspension Take 10 mL by mouth 4 times a day. 473 mL 11 ??? warfarin (Coumadin) 5 MG tablet Take 2.5 mg on Friday and 5mg the rest of the week and follow up with your warfarin pharmacist. 30 tablet 0 No current facility-administered medications for this visit. documented in this encounter Plan of Treatment Upcoming Encounters Date Type Department Care Team (Late st Contact Info) Description 12/06/2024 11:20 AM EDT Office Visit [facility] Internal Medicine [address] [place] [address] Alisa Kunz DO [address] [place] [phone] 12/23/2024 4:00 PM EDT [facility] [address], [address] [place] [phone] Lavern Shoemaker MD [address] [place] [address] 02/02/2025 8:40 AM EST Office Visit [facility] Internal Medicine [address] [place] [address] Alisa Kunz L, DO [address] [place] [phone] 02/09/2025 12:20 PM EST [facility] [address] [place] [phone] Anne-Marie Kolb L, CUSTODIAN [employer] [address] [facility] [address] [place] [phone] Scheduled Referrals Name Type Priority Associated Diagnoses Orde r Schedule Follow Up Pulm Outpatient Referral Routine Recurrent pleural effusion on left Chronic hypoxic respiratory failure Obstructive lung disease (CMS/HCC) Systemic lupus erythematosus (SLE) in adult (CMS/HCC) Expected: 12/14/2024 (Approximate), Expires: 11/14/2025 documented as of this encounter Results * XR Chest 2 Views (10/14/2024 12:19 PM EDT) Anatomical Region Laterality Modality Chest Digital Radiogra phy Impressions 10/14/2024 1:01 PM EDT Persistent bilateral pleural effusions, slightly increased on the right. CRITICAL RESULT: No. COMMUNICATION: Per this written report. Drafted by Macho Muir MD on 10/14/2024 1:01 PM Final report signed by Macho Muir MD on 10/14/2024 1:01 PM Narrative 10/14/2024 1:01 PM EDT CLINICAL INDICATION: Follow-up for recurring pleural effusion. TECHNIQUE: XR CHEST 2 VIEWS COMPARISON: 2024. FINDINGS: Hypoventilatory changes with bilateral pleural effusions and bibasilar opacities. Left chest wall dual lead cardiac pacer. No pneumothorax. Procedure Note Macho Muir MD - 10/14/2024 CLINICAL INDICATION: Follow-up for recurring pleural effusion. TECHNIQUE: XR CHEST 2 VIEWS COMPARISON: 2024. FINDINGS: Hypoventilatory changes with bilateral pleural effusions and bibasilaropacities. Left chest wall dual lead cardiac pacer. No pneumothorax. IMPRESSION: Persistent bilateral pleural effusions, slightly increased on the right. CRITICAL RESULT: No. COMMUNICATION: Per this written report. Drafted by Macho Muir MD on 10/14/2024 1:01 PM Final report signed by Macho Muir MD on 10/14/2024 1:01 PM Cristian Zimmer MD IMG XR PROCEDURES Final Result documented in this encounter Visit Diagnoses Diagnosis Recurrent pleural effusion on left- Primary Chronic hypoxic respiratory failure Obstructive lung disease (CMS/HCC) Chronic airway obstruction, not elsewhere classified Systemic lupus erythematosus (SLE) in adult (CMS/HCC) Recurrent pleural effusion on left documented in this encounter Additional Health Concerns Assessment Noted Time PHQ-9 Depression Total Score: 0 09/09/19 25 11:19 AM EDT A fall risk assessment has been complete d for the patient 10/14/2024 11:14 AM EDT A Body Mass Index follow-up plan has been documented for the patient 10/14/2024 2:36 PM EDT documented as of this encounter Care Teams Drug Worker Relationship Specialty Start Date End Date Alisa Kunz DO [address] [place] [phone] PCP - General Internal Medicine 03/13/21 Kodi Bustos DO [address] [address] Surgeon Cardiothoracic Surgery 11/06/22 Sujit Arriola MD [address] [place] [phone] Consulting Physician Pulmonary Disease 11/06/22 Sujit Reyes MD [id number] [place] [address] Referring Physician 12/04/22 Patricia Yañez LPN [facility] TCM Nurse 08/25/24 10/17/24 Zee Lazar DO [address] [place] [address] Resident 09/08/24 documented as of this encounter
--- OUTSIDE RECORDS SUMMARY | 2024-10-14 12:09 | XMS_ITS | Encounter Summary ---
Author Organization [facility] Address [address] [place] [address] Care Team Providers Care Etl Bi Developer Name Role Phone Alisa Kunz DO Primary Care Provider [phone] Kodi Bustos DO Unavailable [phone] Sujit Arriola MD Unavailable [phone] Sujit Reyes MD Unavailable [phone] Patricia Yañez LPN Unavailable Unavailab Zee Lr DO Unavailable [phone] Encounter Details Date Type Department Care Team (Latest Contact Info) Description 10/14/2024 12:09 PM EDT - 10/14/2024 11:59 PM EDT Hospital Encounter [place] [facility] [address], [address] [place] [address] Recurrent pleural effusion on left Discharge Disposition: [...] often do you attend chur ch or yarsani services? 1 to 4 times per year [...] Questionnaire-2 Score 0 09/08/2024 [facility] - Occupational Stress Questionnaire [...] drink first t anselmo in the morning (EYE-VISITOR USE ASSISTANT) to steady your nerves or to [...] of the week 90 tablet 1 07/16/2024 glucose blood test strip Use to test blood sugars twice a day to calibrate cgm. Dx 10.65 100 each 12 09/16/2024 hydroxychloroquine (Plaquenil) 200 MG tabletIndications:S ystemic lupus erythematosus (SLE) in adult ([facility]) Take 1.5 tablets by mouth daily. 45 tablet 5 09/15/2024 insulin glargine (Toujeo SoloStar) 300 UNIT/ML injection pen (1 UNIT DIAL)Indications:Ty pe 1 diabetes mellitus with hyperglycemia ([facility]) Inject 14 Units under the skin every morning. 4.5 mL 3 08/04/2024 6 insulin lispro (HumaLOG KWIKPEN) 100 UNIT/ML injection penIndications:Type 1 diabetes mellitus with hyperglycemia ([facility]) Inject 2-6 units before meals [...] tabletIndications:S ystemic lupus erythematosus (SLE) in adult ([facility]) Take 2 tablets by mouth [...] tablet by mouth daily. 30 tablet 09/16/2024 5 gabapentin (Neurontin) 300 MG capsule TAKE 1 CAPSULE BY MOUTH 2 TIMES A DAY 60 capsule 2 10/06/2024 5 Pitavastatin Calcium (Livalo) 4 MG tabletIndications:T ype 1 diabetes mellitus with other specified complication (CMS/HCC),Dyslipide romana Take 1 tablet by mouth daily. 90 tablet 09/06/2024 5 documented as of this encounter Plan of Treatment Upcoming Encounters Date Type Department Care Team (Late st Contact Info) Description 12/06/2024 11:20 AM EDT Office Visit [facility] Internal Medicine [address], [address]rd [place] [address] Alisa Kunz, DO [address] [place] [address] 12/23/2024 4:00 PM EDT [facility] [address], [address] [place] [address] Lavern Shoemaker MD [address] [place] [address] 02/02/2025 8:40 AM EST Office Visit [facility] Internal Medicine [address], [address]rd [place] [address] Ze, Alisa L, DO [address] [place] [address] 02/09/2025 12:20 PM EST Office Visit [facility] Endocrinology [address] [place] [address] CortesAnne-Marie houston L, WIRE WINDING MACHINE OPERATOR [address] [place] [address] documented as of this encounter [...] Macho Muir MD on 10/14/2024 1:01 PM us Cristian Zimmer MD IMG XR PROCEDURES Final [...] documented as of this encounter Care Teams Etl Bi Developer Relationship Specialty Start Date End Date Alisa Kunz DO [address] [place] [address] PCP - General Internal Medicine 03/13/21 Kodi Bustos DO [address] [place] [address] Surgeon Cardiothoracic Surgery 11/06/22 Sujit Arriola MD [address] [place] [address] Consulting Physician Pulmonary Disease 11/06/22 Sujit Reyes MD [address] [place] [address] Referring Physician 12/04/22 Patricia Yañez LPN [facility] TCM Nurse 08/25/24 10/17/24 Zee Lazar DO [address] [place] [address] Resident 09/08/24 documented as of this encounter
--- OUTSIDE RECORDS SUMMARY | 2024-10-21 14:15 | XMS_ITS | Encounter Summary ---
Author Organization [facility] ystem Address [address] [place] [address] Care Team Providers Care Data Warehousing Engineer Name Role Phone Alisa Kunz DO Primary Care Provider +1- [phone] Reason for Referral * Hospital - Outpatient (Routine) - Authorized Specialty Diagnoses / Procedures Referred By Luis Armando mckeon Referred To Contact Sleep Medicine Diagnoses EWELINA (obstructive sleep apnea) Nocturnal hypoxemia Weight loss On supplemental oxygen therapy Procedures Polysomnography 4 or More Parameters Shannen Horta APRN 1720 [place] [address] Phone: tel: fax: [facility] SLEEP LAB [address] [address] Phone: tel: fax: Referral ID Status Reason Start Date Expiration Date V isits Requested Visits Authorized [id number] Authorized 10/21/2024 01/20/2026 1 1 Reason for Visit * Reason Comments Follow-up Sleep Apnea Encounter Details Date Type Department Care Team (Late st Contact Info) Description 10/21/2024 2:15 PM EDT Office Visit [facility] SLEEP MEDICINE [address] [place] [address] Shannen Horta, ELECTRIC WELDER [address] [place] [address] EWELINA (obstructive sleep apnea) (Primary Dx); Nocturnal hypoxemia; Weight loss; On supplemental oxygen therapy Social History Tobacco Use Types Packs/Day Years [...] Sign Reading Time Taken Comments Blood Pressure 122/62 10/21/2024 2:21 PM EDT Pulse 60 10/21/2024 2:21 PM EDT Temperature 36.6 C (97.8 F) 10/21/2024 2:21 PM EDT Respiratory Rate - - Oxygen Saturation 92% 10/21/2024 2:21 PM EDT 2L oxygen Inhaled Oxygen Concentration - - Weight - - Height 163 cm (5' 4.17 ) 10/21/2024 2:21 PM EDT Body Mass Index - - documented in this encounter Progress Notes * Shannen Horta, ELECTRIC WELDER - 10/21/2024 2:15 PM EDT Chief Complaint: Chief Complaint Patient presents with Follow-up Sleep Apnea HPI: Michelle Felipe is a 74 y.o. female here for follow-up of sleep apnea. Patient was last seen 05/15/2023. Patient does use yzoxqb-iys-jespw oxygen at 2 L. She has a history of moderate sleep apnea and has been using MAD. However, due to her lupus she has had mouth burning and mouth sores and has not been able to wear. Her last sleep study was in 1999 and she has lost weight since that time and is curious as to her options that may be available now and if CPAP would be a better choice at this time. We will do a new sleep study to reassess. She is sleeping 8 to 10 hours nightly but is up approximately every 2 hours to use the restroom. She is currently in atrial fibrillation. Current medications are: Current Outpatient Medications: acetaminophen (TYLENOL) 500 MG tablet, Take 2 tablets by mouth Every 6 (Six) Hours As Needed., Disp: , Rfl: aspirin 81 MG EC tablet, Take 1 tablet by mouth Every Night., Disp: , Rfl: brimonidine (ALPHAGAN) 0.2 % ophthalmic solution, Administer 1 drop to both eyes Every Night., Disp: , Rfl: Calcium Citrate-Vitamin D (CALCIUM + D PO), Take 1 tablet by mouth Daily., Disp: , Rfl: cetirizine (zyrTEC) 10 MG tablet, Take 1 tablet by mouth Every Night., Disp: , Rfl: DULoxetine (CYMBALTA) 20 MG capsule, Take 1 capsule by mouth Every Morning., Disp: , Rfl: DULoxetine (CYMBALTA) 60 MG capsule, Take 1 capsule by mouth Every Morning. 60mg and 20mg in the morning, Disp: , Rfl: ezetimibe (ZETIA) 10 MG tablet, TAKE 1 TABLET DAILY (Patient taking differently: Take 1 tablet by mouth Every Night.), Disp: 90 tablet, Rfl: 3 folic acid (FOLVITE) 1 MG tablet, Take 1 tablet by mouth Daily., Disp: , Rfl: furosemide (LASIX) 20 MG tablet, Take 1 tablet by mouth As Needed (take for edema, increase in weight 3 lbs.)., Disp: 90 tablet, Rfl: 3 gabapentin (NEURONTIN) 100 MG capsule, Take by mouth 2 (Two) Times a Day. 300 mg po qam and 600 mg po qpm, Disp: , Rfl: glucagon (GLUCAGEN) 1 MG injection, Inject 1 mg under the skin into the appropriate area as directed., Disp: , Rfl: glucose (DEX4) 4 GM chewable tablet, Chew 4 tablets., Disp: , Rfl: hydroxychloroquine (PLAQUENIL) 200 MG tablet, Take 1 tablet by mouth Every Night., Disp: , Rfl: Insulin Glargine (TOUJEO SOLOSTAR SC), Inject 6 Units under the skin into the appropriate area as directed 2 (Two) Times a Day., Disp: , Rfl: Insulin Lispro (humaLOG) 100 UNIT/ML injection, Inject 3 Units under the skin into the appropriate area as directed 3 (Three) Times a Day Before Meals., Disp: , Rfl: latanoprost (XALATAN) 0.005 % ophthalmic solution, Administer 1 drop to both eyes Every Night., Disp: , Rfl: 6 levothyroxine (SYNTHROID, LEVOTHROID) 125 MCG tablet, Take 1 tablet by mouth Daily., Disp: , Rfl: metoprolol succinate XL (TOPROL-XL) 25 MG 24 hr tablet, Take 1 tablet by mouth Daily., Disp: 90 tablet, Rfl: 3 mycophenolate (CELLCEPT) 500 MG tablet, Take 2 tablets by mouth 2 (Two) Times a Day. PT. HAS NOT STARTED THIS YET., Disp: , Rfl: nitroglycerin (NITROSTAT) 0.3 MG SL tablet, 1 under the tongue as needed for angina, may repeat q5mins for up three doses (Patient taking differently: 1 under the tongue as needed for angina, may repeat q5mins for up three doses. PT. HAS NOT HAD TO TAKE THIS YET.), Disp: 25 tablet, Rfl: 1 pitavastatin calcium (LIVALO) 2 MG tablet tablet, Take 1 tablet by mouth Every Night., Disp: , Rfl: spironolactone (ALDACTONE) 25 MG tablet, Take 0.5 tablets by mouth Daily., Disp: , Rfl: Trelegy Ellipta 200-62.5-25 MCG/INH inhaler, Inhale 1 puff Daily., Disp: , Rfl: Urine Glucose-Ketones Test (Keto-Diastix) strip, Use daily as needed per endocrinology, Disp: , Rfl: warfarin (COUMADIN) 5 MG tablet, TAKE 1/2 TO 1 TABLET ONCE A DAY OR DIRECTED TAKE 7.5 mg on 10/12/2024., Disp: 30 tablet, Rfl: 2. The patient's relevant past medical, surgical, family and social history were reviewed and updated in [facility] as appropriate. Review of Systems Constitutional: Positive for fatigue. HENT: Positive for mouth sores. Eyes: Positive for visual disturbance. Respiratory: Positive for apnea, shortness of breath and wheezing. Cardiovascular: Positive for palpitations. Endocrine: Positive for cold intolerance. Musculoskeletal: Positive for arthralgias, gait problem, joint swelling and myalgias. Negative for back pain. Allergic/Immunologic: Positive for environmental allergies and immunocompromised state. Neurological: Positive for numbness. Psychiatric/Behavioral: Positive for dysphoric mood and sleep disturbance. The patient is nervous/anxious. All other systems reviewed and are negative. Objective: Physical Exam Constitutional: Appearance: Normal appearance. HENT: Head: Normocephalic and atraumatic. Mouth/Throat: Comments: Mallampati 4 anatomy Cardiovascular: Rate and Rhythm: Bradycardia present. Rhythm irregular. Pulmonary: Effort: Pulmonary effort is normal. Breath sounds: Normal breath sounds. Skin: General: Skin is warm and dry. Neurological: Mental Status: She is alert and oriented to person, place, and time. Psychiatric: Mood and Affect: Mood normal. Behavior: Behavior normal. Thought Content: Thought content normal. Judgment: Judgment normal. BP 122/62 Pulse 60 Temp 97.8 ??F (36.6 ??C) Ht 163 cm (64.17 ) SpO2 92% Comment: 2L oxygen BMI 22.54 kg/m?? ASSESSMENT/PLAN Diagnoses and all orders for this visit: 1. EWELINA (obstructive sleep apnea) (Primary) - Polysomnography 4 or More Parameters; Future 2. Nocturnal hypoxemia - Polysomnography 4 or More Parameters; Future 3. Weight loss - Polysomnography 4 or More Parameters; Future 4. On supplemental oxygen therapy - Polysomnography 4 or More Parameters; Future We will move forward with PSG to reassess severity of sleep apnea so that we can properly give options as per treatment at this time. I will see her back following her study. Signed by Shannen Horta APRN October 21, 2024 CC: Alisa Kunz, No ref. provider found documented in this encounter Plan of Treatment Upcoming Encounters Date Type Department Care Team (Late st Contact Info) Description 11/28/2024 7:45 PM EDT Appointment [facility] SLEEP LAB [address]20 [facility] [address] [place] [address] 12/02/2024 3:30 PM EDT Office Visit [facility] CARDIOLOGY [address] [place] [address] [place] [address] Sujit Reyes MD 1720 [facility] [address] [place] [id number] 01/19/2025 1:45 PM EST Office Visit [facility] CARDIOLOGY 1720 [facility] [address] [place] [address] Naveen Velasquez MD [address] [facility] [address] [place] [address] Scheduled Orders Name Type Priority Associated Diagnoses Orde r Schedule Polysomnography 4 or More Parameters Sleep Center Routine EWELINA (obstructive sleep apnea) Nocturnal hypoxemia Weight loss On supplemental oxygen therapy Expected: 04/19/2025 (Approximate), Expires: 10/21/2025 documented as of this encounter Visit Diagnoses Diagnosis EWELINA (obstructive sleep apnea)- Primary Obstructive sleep apnea (adult) (pediatric) Nocturnal hypoxemia Weight loss Loss of weight On supplemental oxygen therapy Dependence on supplemental oxygen documented in this encounter Care Teams Data Warehousing Engineer Relationship Specialty Start Date End Date Alisa Kunz DO [address] [place] [address] PCP - General Internal Medicine 04/26/21 documented as of this encounter
--- OUTSIDE RECORDS SUMMARY | 2024-10-27 13:40 | XMS_ITS | Encounter Summary ---
Author Organization [facility] Address [address] [place] [address] Care Team Providers Care Cloth Doffer Name Role Phone Alisa Kunz DO Primary Care Provider [phone] Kodi Bustos DO Unavailable [phone] Sujit Arriola MD Unavailable [phone] Sujit Reyes MD Unavailable [phone] Zee Lazar DO Unavailable [phone] Reason for Referral * Consultation (Routine) - Authorized Specialty Diagnoses / Procedures Referred By Contac t Referred To Contact Diagnoses Type 1 diabetes mellitus with other specified complication (CMS/HCC) Anne-Marie Kolb APRN [address] [facility] [address] [place] [address] Phone: tel: fax: Referral ID Status Reason Start Date Expiration Date V isits Requested Visits Authorized [id number] Authorized 10/27/2024 04/28/2026 1 1 Reason for Visit * Reason Comments Diabetes * Consultation (Routine) - Closed Specialty Diagnoses / Procedures Referred By Contac t Referred To Contact Diagnoses Type 1 diabetes mellitus with hyperglycemia (CMS/HCC) Anne-Marie Kolb APRN [address] [facility] [address] [place] [address] Phone: tel: fax: Referral ID Status Reason Start Date Expiration Date Visits Re quested Visits Authorized [id number] Closed 08/04/2024 02/03/2026 1 1 Encounter Details Date Type Department Care Team (Late st Contact Info) Description 10/27/2024 1:40 PM EDT Office Visit [facility] [address] [place] [address] Anne-Marie Kolb, HOSPITAL SOCIAL WORKER [address] [place] [address] Type 1 diabetes mellitus with [...] Recorded Patient Health Questionnaire-2 Score 0 10/27/2024 [facility] [place] of Occupat ional Health - Occupational Stress [...] drink first t anselmo in the morning (EYE-MUSIC PROFESSOR) to steady your nerves or to get [...] education team with any questions or concerns [phone] * Progress Notes - Anne-Marie Kolb APRN - 10/27/2024 1:40 PM EDT Images from [...] care. Electronically signed by: Anne-Marie Kolb APRN [facility] ENDO[facility] [address] [place] [address]. [address] [place]. [address] PHONE [phone] FAX: [phone] documented in this encounter Plan of Treatment Upcoming Encounters Date Type Department Care Team (Late st Contact Info) Description 12/06/2024 11:20 AM EDT Office Visit [facility] Internal Medicine [address] [place] [address] Alisa Kunz DO [address] [place] [address] 12/23/2024 4:00 PM EDT Office Visit [facility] Medicine Specialties [address] [place] [address] Lavern Shoemaker MD [address] [place] [address] 02/02/2025 8:40 AM EST Office Visit [facility] Internal Medicine [address] [place] [address] Alisa Kunz DO [address] [place] [address] 02/09/2025 12:20 PM EST Office Visit [facility] Endocrinology [address] [place] [address] Anne-Marie Kolb, HOSPITAL SOCIAL WORKER [address] [facility] [address] [place] [address] Scheduled Referrals Name Type Priority Associated Diagnoses Orde r Schedule Follow Up [facility] Outpatient Referral Routine Type 1 diabetes [...] documented as of this encounter Care Teams Cloth Doffer Relationship Specialty Start Date End Date Alisa Kunz DO [address] [place] [address] PCP - General Internal Medicine 03/13/21 Kodi Bustos DO [address] [address] Surgeon Cardiothoracic Surgery 11/06/22 Sujit Arriola MD [address] [place] [address] Consulting Physician Pulmonary Disease 11/06/22 Sujit Reyes MD [address] [place] [address] Referring Physician 12/04/22 Zee Lazar DO [address] [place] [address] Resident 09/08/24 documented as of this encounter
--- OUTSIDE RECORDS SUMMARY | 2024-11-09 10:29 | XMS_ITS | Encounter Summary ---
Author Organization [facility] Address [address] [place] [address] Care Team Providers Care Spreader Name Role Phone ZeAlisa willett Torri DO Primary Care Provider Kodi Bustos DO Unavailable [phone] Sujit Arriola MD Unavailable [phone] Sujit Reyes MD Unavailable [phone] Patricia Yañez LPN Unavailable Unavailab Zee Lr DO Unavailable [phone] Encounter Details Date Type Department Care Team (Late st Contact Info) Description 09/28/2024 Results Follow-Up [facility] Discharge Clinic [address] [place] [address] Ashley, June R, ACCOUNT ADVISOR [address] [place] [address] Social History Tobacco Use Types [...] Recorded Patient Health Questionnaire-2 Score 0 09/08/2024 [facility] of Occupat [...] drink first t anselmo in the morning (EYE-POULTRY FARM WORKER) to steady your nerves or to [...] 11:20 AM EDT Office Visit [facility] Internal Medicine [address]rd [place] [address] Alisa Kunz, DO [address] [place] [address] 12/23/2024 4:00 PM EDT Office Visit [facility] Medicine Specialties [address] [place] [address] Lavern Shoemaker MD [address] [place] [id number] 02/02/2025 8:40 AM EST Office Visit [facility] Internal Medicine [address] 3[address] [place] [address] Alisa Kunz, DO [address] [place] [address] 02/09/2025 12:20 PM EST Office Visit [facility] Endocrinology [address] [place] [address] Anne-Marie Kolb L, ACCOUNT ADVISOR 2195 [facility] 125 [place] [address] documented as of this encounter [...] documented as of this encounter Care Teams Spreader Relationship Specialty Start Date End Date Alisa Kunz DO [address] [place] [address] PCP - General Internal Medicine 03/13/21 Kodi Bustos, DO [address] [place] [address] Surgeon Cardiothoracic Surgery 11/06/22 Sujit Arriola MD [address] [place] [address] Consulting Physician Pulmonary Disease 11/06/22 Sujit Reyes MD [address] [place] [address] Referring Physician 12/04/22 Patricia Yañez LPN [facility] TCM Nurse 08/25/24 10/17/24 Zee Lazar DO [address] [place] [id number] Resident 09/08/24 documented as of this encounter
--- OUTSIDE RECORDS SUMMARY | 2024-11-09 10:29 | XMS_ITS | Encounter Summary ---
Author Organization [facility] Address [address] [place] [address] Care Team Providers Care Outside Sales Manager Name Role Phone ZeNitin willettgricel Wild DO Primary Care Provider Kodi Bustos DO Unavailable [phone] Sujit Arriola MD Unavailable [phone] Sujit Reyes MD Unavailable [phone] Patricia Yañez LPN Unavailable Unavailab Zee Lr DO Unavailable [phone] Encounter Details Date Type Department Care Team (Late st Contact Info) Description 09/20/2024 Telephone [facility] Endocrinology [address] [place] [address] Anne-Marie Kolb L, MIXER MACHINE FEEDER [address] [facility] [address] [place] [address] Social History Tobacco Use Types [...] drink first t anselmo in the morning (EYE-SHEAR OPERATOR AUTOMATIC) to steady your nerves or to get [...] 12/06/2024 11:20 AM EDT Office Visit [facility] Internal Medicine [address] 3rd [place] [address] Alisa Kunz, DO [address] [place] [address] 12/23/2024 4:00 PM EDT Office Visit [facility] Medicine Specialties [address] [place] [address] Lavern Shoemaker MD [address] [place], [place] [id number] 02/02/2025 8:40 AM EST Office Visit [facility] Internal Medicine [address] 3rd [place] [address] Alisa Kunz, DO [address] [place] [address] 02/09/2025 12:20 PM EST Office Visit [facility] Endocrinology [address] [place] [address] Anne-Marie Kolb L, MIXER MACHINE FEEDER 2195 [facility] 125 [place] [address] documented as of this encounter [...] documented as of this encounter Care Teams Outside Sales Manager Relationship Specialty Start Date End Date Alisa Kunz DO [address] [place] [address] PCP - General Internal Medicine 03/13/21 Kodi Bustos, DO [address] [place] [address] Surgeon Cardiothoracic Surgery 11/06/22 Sujit Arriola MD [address] [place] [address] Consulting Physician Pulmonary Disease 11/06/22 Sujit Reyes MD [address] [place] [address] Referring Physician 12/04/22 Patricia Yañez LPN [facility] TCM Nurse 08/25/24 10/17/24 Zee Lazar DO [address] [place] [address] Resident 09/08/24 documented as of this encounter
--- OUTSIDE RECORDS SUMMARY | 2024-11-09 10:29 | XMS_ITS | Encounter Summary ---
Author Organization [facility] Address [address] [place] [address] Care Team Providers Care Wiring Mechanic Name Role Phone Alisa Kunz DO Primary Care Provider [phone] Kodi Bustos DO Unavailable [phone] Sujit Arriola MD Unavailable [phone] Sujit Reyes MD Unavailable [phone] Patricia Yañez LPN Unavailable Unavailab Zee Lr DO Unavailable [phone] Reason for Visit * Reason Onset Date Comments HCN Clinical Concern/Question 09/16/2024 Lo w heartrate Encounter Details Date Type Department Care Team (Late st Contact Info) Description 09/16/2024 Telephone [facility] Internal Medicine [address]rd [place] [address] Alisa Kunz DO [address] [place] [address] HCN Clinical Concern/Question (Low heartrate) [...] [facility] of Occupat ional [facility] - Occupational Stress Questionnaire Answer Date [...] drink first t anselmo in the morning (EYE-TRIPE WASHER) to steady your nerves or to get [...] and optimal time of day to reach caller:[phone] Note: Please do not reply to this message. Follow-up communication and further actions as a result of this message need to be communicated with the patient directly, if the patient is not active onMyChart. If the patient is active on MyChart, they will receive notification of the communication/outcome via [employer] documented in this encounter Plan of Treatment Upcoming Encounters Date Type Department Care Team (Late st Contact Info) Description 12/06/2024 11:20 AM EDT Office Visit [facility] Internal Medicine [address] 3[address] [place] [address] Alisa Kunz, DO [address] [place] [address] 12/23/2024 4:00 PM EDT Office Visit [facility] Medicine Specialties [address] [place] [address] Lavern Shoemaker MD [address] [place], [place] [id number] 02/02/2025 8:40 AM EST Office Visit [facility] Internal Medicine [address]rd [place] [address] Alisa Kunz, DO [address] [place] [address] 02/09/2025 12:20 PM EST [facility] [address] [place] [address] Anne-Marie Kolb L, ENDOCRINOLOGY SPECIALIST 2195 [facility] 125 [place] [address] documented as of this encounter Visit Diagnoses [...] documented as of this encounter Care Teams Wiring Mechanic Relationship Specialty Start Date End Date Alisa Kunz DO [address] [place] [address] PCP - General Internal Medicine 03/13/21 Kodi Bustos DO [address] [address] Surgeon Cardiothoracic Surgery 11/06/22 Sujit Arriola MD [address] [place] [address] Consulting Physician Pulmonary Disease 11/06/22 Sujit Reyes MD [address] [place] [address] Referring Physician 12/04/22 Patricia Yañez LPN [facility] TCM Nurse 08/25/24 10/17/24 Zee Lazar DO [address] [place], [place] [id number] Resident 09/08/24 documented as of this encounter
--- OUTSIDE RECORDS SUMMARY | 2024-11-09 10:29 | XMS_ITS | Encounter Summary ---
Author Organization Healthcare Address [address] [place] [address] Care Team Providers Care Ceramics Engineer Name Role Phone Alisa Kunz DO Primary Care Provider [phone] Kodi Bustos DO Unavailable [phone] Sujit Arriola MD Unavailable [phone] Sujit Reyes MD Unavailable [phone] Patricia Yañez LPN Unavailable Unavailab Zee Lr DO Unavailable [phone] Encounter Details Date Type Department Care Team [...] Score 0 09/08/2024 [facility] [...] drink first t anselmo in the morning (EYE-LAW EXAMINER) to steady your nerves or to get [...] AM EDT Office Visit [facility] Internal Medicine [address], [address]rd [place] [address] Alisa Kunz, DO [address] [address] 12/23/2024 4:00 PM EDT Office Visit [facility] Medicine Specialties [address], 2nd [place] [address] Lavern Shoemaker MD 800 [place] [address] 02/02/2025 8:40 AM EST Office Visit [facility] Internal Medicine [address], [address]rd [place] [address] Alisa Kunz, DO [address] [address] 02/09/2025 12:20 PM EST Office Visit [facility] Endocrinology [address] [place] [address], [place] [address] Anne-Marie Kolb L, BOTTOM CRANE OPERATOR [address] [facility] [address] [place] [address] documented as of this encounter [...] documented as of this encounter Care Teams Ceramics Engineer Relationship Specialty Start Date End Date Alisa Kunz DO [address] [place] [address] PCP - General Internal Medicine 03/13/21 Kodi Bustos DO [address] [address] Surgeon Cardiothoracic Surgery 11/06/22 Sujit Arriola MD [address] [place] [address] Consulting Physician Pulmonary Disease 11/06/22 Sujit Reyes MD [address] [place] [address] Referring Physician 12/04/22 Patricia Yañez LPN [facility] TCM Nurse 08/25/24 10/17/24 Zee Lazar DO 800 [place], [place] [address] Resident 09/08/24 documented as of this encounter
--- OUTSIDE RECORDS SUMMARY | 2024-11-09 10:29 | XMS_ITS | Encounter Summary ---
Author Organization [facility] Address [address] [place] [address] Care Team Providers Care Infection Prevention Specialist Name Role Phone Alisa Kunz DO Primary Care Provider Kodi Bustos DO Unavailable [phone] Sujit Arriola MD Unavailable [phone] Sujit Reyes MD Unavailable [phone] Patricia Yañez LPN Unavailable Unavailab Zee Lr DO Unavailable [phone] Reason for Visit * Reason Onset Date Comments Med Refill 09/16/2024 Encounter Details Date Type Department Care Team (Late st Contact Info) Description 09/16/2024 Telephone [facility] Endocrinology [address] [place] [address] Anne-Marie Kolb L, ABRASIVE WATER JET CUTTER OPERATOR 219 [facility] [address] [place] [address] Med Refill Social History Tobacco [...] drink first t anselmo in the morning (EYE-BACK ROLL LATHE OPERATOR) to steady your nerves or to [...] Description 12/06/2024 11:20 AM EDT Office Visit [facility] Internal Medicine [address], 3rd [place] [address] Alisa Kunz, DO [address] [address] 12/23/2024 4:00 PM EDT Office Visit [facility] Medicine Specialties [address], 2nd [place] [address] Lavern Shoemaker MD 800 [place] [address] 02/02/2025 8:40 AM EST Office Visit [facility] Internal Medicine [address], 3rd [place] [address] Alisa Kunz, DO [address] [address] 02/09/2025 12:20 PM EST [facility] [address] [place] [address] Anne-Marie Kolb, ABRASIVE WATER JET CUTTER OPERATOR [address] [place] [address] documented as of this encounter [...] documented as of this encounter Care Teams Infection Prevention Specialist Relationship Specialty Start Date End Date Alisa Kunz DO [address] [place] [address] PCP - General Internal Medicine 03/13/21 Kodi Bustos, DO [address] [address] Surgeon Cardiothoracic Surgery 11/06/22 Sujit Arriola MD [address] [place] [address] Consulting Physician Pulmonary Disease 11/06/22 Sujit Reyes MD [address] [place] [address] Referring Physician 12/04/22 Patricia Yañez, MOTOR VEHICLE PARTS INTERPRETER [facility] TCM Nurse 08/25/24 10/17/24 Zee Lazar DO [address] [place] [address] Resident 09/08/24 documented as of this encounter
--- OUTSIDE RECORDS SUMMARY | 2024-11-09 10:29 | XMS_ITS | Encounter Summary ---
Author Organization [facility] Address [address] [place] [address] Care Team Providers Care Sectionizer Name Role Phone Alisa Kunz DO Primary Care Provider [phone] Kodi Bustos DO Unavailable [phone] Sujit Arriola MD Unavailable [phone] Sujit Reyes MD Unavailable [phone] Patricia Yañez LPN Unavailable Unavailab Zee Lr DO Unavailable [phone] Reason for Visit * Reason Onset Date Comments HCN Lab/home Health 09/28/2024 Encounter Details Date Type Department Care Team (Late st Contact Info) Description 09/28/2024 Telephone [facility] Internal Medicine [address], 3rd [place] [address] Alisa Kunz DO [address] [place] [address] HCN Lab/home Health Social History [...] How often do you attend chur or confucianism services? 1 to 4 times [...] 0 09/08/2024 [facility] - Occupational Stress [...] any time in the past 12 m [facility], were you homeless or living [...] drink first t anselmo in the morning (EYE-APPRENTICE PAINTER NECKTIES) to steady your nerves or to get [...] advise and frequency) Company and Caller Name: [employer] [phone] JUNE [employer]BAL Fax Number (if outside [place]): None Best contact number: [employer] [phone] Optimal time of day to reach caller: [...] Description 12/06/2024 11:20 AM EDT Office Visit [facility] Internal Medicine [address], 3rd [place] [address] Alisa Kunz, DO [address] [facility] 304 [place] [address] 12/23/2024 4:00 PM EDT Office Visit [facility] Medicine Specialties [address], [address]nd [place] [address] Lavern Shoemaker MD 800 [place] [address] 02/02/2025 8:40 AM EST Office Visit [facility] Internal Medicine [address], [address]rd [place] [address] Alisa Kunz, DO [address] [facility] 304 [place] [address] 02/09/2025 12:20 PM EST Office Visit [facility] Endocrinology [address] [place] [address] Anne-Marie Kolb, EAR MUFF ASSEMBLER 2195 [place] [facility] 125 [place] [address] documented as of this encounter Visit Diagnoses [...] documented as of this encounter Care Teams Sectionizer Relationship Specialty Start Date End Date Alisa Kunz DO [address] [place] [address] PCP - General Internal Medicine 03/13/21 Kodi Bustos, DO [address] [address] Surgeon Cardiothoracic Surgery 11/06/22 Sujit Arriola MD [address] [place] [address] Consulting Physician Pulmonary Disease 11/06/22 Sujit Reyes MD [address] [place] [address] Referring Physician 12/04/22 Patricia Yañez LPN [facility] TCM Nurse 08/25/24 10/17/24 Zee Lazar DO 800 [place], [place] [address] Resident 09/08/24 documented as of this encounter
--- OUTSIDE RECORDS SUMMARY | 2024-11-09 10:29 | XMS_ITS | Encounter Summary ---
Author Organization Healthcare Address [address] [place] [address] Care Team Providers Care Sheep And Wheat Farmer Name Role Phone ZeNitin willettgricel Wild DO Primary Care Provider Kodi Bustos DO Unavailable [phone] Sujit Arriola MD Unavailable [phone] Sujit Reyes MD Unavailable [phone] Patricia Yañez LPN Unavailable Unavailab Zee Lr DO Unavailable [phone] Encounter Details Date Type Department Care Team (Late st Contact Info) Description 09/28/2024 Telephone [facility] Diabetes Education [address] [place] [address] Anne-Marie Kolb L, MATTRESS AND BOXSPRINGS SUPERVISOR 219 [facility] 125 [place] [address] Social History Tobacco Use Types [...] drink first t anselmo in the morning (EYE-OVERHEAD FOREMAN) to steady your nerves or to get [...] Description 12/06/2024 11:20 AM EDT Office Visit [facility] Internal Medicine [address], [address]rd [place] [address] Alisa Kunz, [address] [place] [address] 12/23/2024 4:00 PM EDT Office Visit [facility] Medicine Specialties [address], [address]nd [place] [address] Lavern Shoemaker MD 800 [place], [place] [address] 02/02/2025 8:40 AM EST Office Visit [facility] Internal Medicine [address], 3rd [place] [address] Ailsa Kunz DO [address] [place] [address] 02/09/2025 12:20 PM EST Office Visit [facility] Endocrinology [address] [place] [address] Anne-Marie Kolb L, MATTRESS AND BOXSPRINGS SUPERVISOR [address] [place] [address] documented as of this encounter [...] documented as of this encounter Care Teams Sheep And Wheat Farmer Relationship Specialty Start Date End Date Alisa Kunz DO [address] [place] [address] PCP - General Internal Medicine 03/13/21 Kodi Bustos DO [address] [address] Surgeon Cardiothoracic Surgery 11/06/22 Sujit Arriola MD [address] [place] [address] Consulting Physician Pulmonary Disease 11/06/22 Sujit Reyes MD [address] [place] [address] Referring Physician 12/04/22 Patricia Yañez LPN [facility] TCM Nurse 08/25/24 10/17/24 Zee Lazar DO [address] [place] [address] Resident 09/08/24 documented as of this encounter
--- OUTSIDE RECORDS SUMMARY | 2024-11-09 10:29 | XMS_ITS | Encounter Summary ---
Author Organization [facility] Address [address] [place] [address] Care Team Providers Care Cat Tender Name Role Phone Alisa Kunz DO Primary Care Provider [phone] Kodi Bustos DO Unavailable [phone] Sujit Arriola MD Unavailable [phone] Sujit Reyes MD Unavailable [phone] Patricia Yañez LPN Unavailable Unavailab Zee Lr DO Unavailable [phone] Reason for Visit * Reason Comments Follow-up Encounter Details Date Type Department Care Team (Late st Contact Info) Description 09/22/2024 Patient Outreach POPUL[facility]ALTH [address] [facility], [address] [place] [address] Patricia Yañez LPN [facility] Follow-up Social History Tobacco [...] often do you attend chur ch or gnosticist services? 1 to 4 times [...] 0 09/08/2024 [facility] - Occupational Stress Questionnaire Answer Date [...] drink first t anselmo in the morning (EYE-FEATHER BALER) to steady your nerves or to get rid of a hangover? 0 08/14/2024 CAGE Questionnaire Score 0 025 Utilities Answer Date Recorded In the past 12 months has th e [employer], gas, oil, or water company threatened to [...] have a cardioversion scheduled for 09[facility]24/2024 at [facility]. Patient states that she has [...] [facility] Internal Medicine [address], 3rd [place] [address] Alisa Kunz DO [address] [place] [address] 12/23/2024 4:00 PM EDT Office Visit [facility] Medicine Specialties [address], 2nd [place] [address] Lavern Shoemaker MD [address] [place] [id number] 02/02/2025 8:40 AM EST Office Visit [facility] Internal Medicine [address], 3rd [place] [address] Alisa Kunz DO [address] [place] [address] 02/09/2025 12:20 PM EST Office Visit [facility] Endocrinology [address] [place] [address] Anne-Marie Kolb, WRAPPER SIZER 2195 [facility] 125 [place] [address] documented as of this encounter [...] documented as of this encounter Care Teams Cat Tender Relationship Specialty Start Date End Date Alisa Kunz DO [address] [place] [address] PCP - General Internal Medicine 03/13/21 Kodi Bustos DO [address] [place] [address] Surgeon Cardiothoracic Surgery 11/06/22 Sujit Arriola MD [address] [place] [address] Consulting Physician Pulmonary Disease 11/06/22 Sujit Reyes MD [address] [facility]00 [place] [address] Referring Physician 12/04/22 Patricia Yañez LPN [facility] TCM Nurse 08/25/24 10/17/24 Zee aLzar DO [address] [place], [place] [address] Resident 09/08/24 documented as of this encounter
--- OUTSIDE RECORDS SUMMARY | 2024-11-09 10:29 | XMS_ITS | Encounter Summary ---
Author Organization Healthcare Address [address] [place] [address] Care Team Providers Care Order Manager Name Role Phone Alisa Kunz DO Primary Care Provider [phone] Kodi Bustos DO Unavailable [phone] Sujit Arriola MD Unavailable [phone] Sujit Reyes MD Unavailable [phone] Patricia Yañez LPN Unavailable Unavailab Zee Lr DO Unavailable [phone] Encounter Details Date Type Department Care Team [...] Score 0 09/08/2024 [facility] - Occupational Stress Questionnaire Answer Date [...] drink first t anselmo in the morning (EYE-OTHER WOOD PROCESSING MACHINE OPERATOR) to steady your nerves or [...] [facility] Internal Medicine [address], 3rd [place] [address] Alisa Kunz, DO [address] [place] [address] 12/23/2024 4:00 PM EDT Office Visit [facility] Medicine Specialties [address], 2nd [place] [address] Lavern Shoemaker MD 800 [place] [address] 02/02/2025 8:40 AM EST Office Visit [facility] Internal Medicine [address], 3rd [place] [address] Alisa Kunz, DO [address] [place] [address] 02/09/2025 12:20 PM EST Office Visit [facility] Endocrinology [address] [place] [address] Anne-Marie Kolb, FRONT END DEVELOPER DESIGNER [address] [facility] 125 [place] [address] documented as of this encounter Visit Diagnoses [...] as of this encounter Care Teams Order Manager Relationship Specialty Start Date End Date Alisa Kunz DO [address] [place] [address] PCP - General Internal Medicine 03/13/21 Kodi Bustos, [address] [address] Surgeon Cardiothoracic Surgery 11/06/22 Sujit Arriola MD [address] [place] [address] Consulting Physician Pulmonary Disease 11/06/22 Sujit Reyes MD [address] [place] [address] Referring Physician 12/04/22 Patricia Yañez, COMMUNITY HEALTH AGENT [facility] TCM Nurse 08/25/24 10/17/24 Zee Lazar DO 800 [place], [place] [address] Resident 09/08/24 documented as of this encounter
--- OUTSIDE RECORDS SUMMARY | 2024-11-09 10:29 | XMS_ITS | Encounter Summary ---
Author Organization [facility] Address [address] [place] [address] Care Team Providers Care Drill Press Operator Name Role Phone Alisa Kunz DO Primary Care Provider [phone] Kodi Bustos DO Unavailable [phone] Sujit Arriola MD Unavailable [phone] Sujit Reyes MD Unavailable [phone] Patricia Yañez LPN Unavailable Unavailab Zee Lr DO Unavailable [phone] Reason for Visit * Reason Comments TCM Call Encounter Details Date Type Department Care Team (Late st Contact Info) Description 09/17/2024 Patient Outreach POPULATION HEALTH [address] [facility], [address] [place] [address] Patricia Yañez LPN [facility] TCM Call Social History [...] often do you attend chur ch or denominational services? 1 to 4 times [...] [facility] of Occupat ional [facility] - Occupational Stress Questionnaire Answer Date [...] first t anselmo in the morning (EYE-LOCKSTITCH SLEEVE SETTER) to steady your nerves or to get rid of a hangover? 0 08/14/2024 CAGE Questionnaire Score 0 025 Utilities Answer Date Recorded In the past 12 months has th e [employer], gas, oil, or water [employer] threatened to shut off services in your [...] 09/09/2024 Discharge Date: 09/15/2024 Hospital Service: [facility] Discharge Diagnosis: Acute on chronic congestive [...] have HH coming to see her through [facility]. Patient denies N/V/D, fever, SOA, chest pain, [...] 12/06/2024 11:20 AM EDT Office Visit [facility] Internal Medicine [address], 3rd [place] [address] Alisa Kunz, DO [address] [place] [address] 12/23/2024 4:00 PM EDT Office Visit [facility] Medicine Specialties [address], [address] [place] [address] Lavern Shoemaker MD 800 [place] [address] 02/02/2025 8:40 AM EST Office Visit [facility] Internal Medicine [address], 3rd [place] [address] Alisa Kunz, DO [address] [place] [address] 02/09/2025 12:20 PM EST Office Visit [facility] Endocrinology [address] [place] [address] Anne-Marie Kolb, HOT END OPERATOR [address] [place] [address] documented as of this encounter Visit Diagnoses [...] documented as of this encounter Care Teams Drill Press Operator Relationship Specialty Start Date End Date Alisa Kunz DO [address] [place] [address] PCP - General Internal Medicine 03/13/21 Kodi Bustos DO [address] [phone] Surgeon Cardiothoracic Surgery 11/06/22 Sujit Arriola MD [address] [place] [address] Consulting Physician Pulmonary Disease 11/06/22 Sujit Reyes MD [address] [place] [address] Referring Physician 12/04/22 Patricia Yañez LPN [facility] TCM Nurse 08/25/24 10/17/24 Zee Lazar DO 800 [place], [place] [address] Resident 09/08/24 documented as of this encounter
--- OUTSIDE RECORDS SUMMARY | 2024-11-09 10:29 | XMS_ITS | Encounter Summary ---
Author Organization [facility] Address [address] [place] [address] Care Team Providers Care Hod Carrier Name Role Phone Alisa Kunz DO Primary Care Provider [phone] Kodi Bustos DO Unavailable [phone] Sujit Arriola MD Unavailable [phone] Sujit Reyes MD Unavailable [phone] Patricia Yañez LPN Unavailable Unavailab Zee Lr DO Unavailable [phone] Encounter Details Date Type Department Care Team (Late st Contact Info) Description 09/16/2024 Telephone [facility] Internal Medicine [address]rd [place] [address] Alisa Kunz DO [address] [place] [address] Social History Tobacco Use Types [...] first t anselmo in the morning (EYE-FOOD PROCESSOR) to steady your nerves or to get [...] Description 12/06/2024 11:20 AM EDT Office Visit [facility] Internal Medicine [address], [address]rd [place] [address] Alisa Kunz DO [address] [place] [address] 12/23/2024 4:00 PM EDT [facility] Special[facility] [address] [place] [address] Lavern Shoemaker MD 800 [place] [address] 02/02/2025 8:40 AM EST Office Visit [facility] Internal Medicine [address], 3rd [place] [address] Alisa Kunz DO [address] [place] [address] 02/09/2025 12:20 PM EST Office Visit [facility] Endocrinology [address] [place] [address] Anne-Marie Kolb L, VAT OVERHAULER [address] [place] [address] documented [...] documented as of this encounter Care Teams Hod Carrier Relationship Specialty Start Date End Date Alisa Kunz DO [address] [place] [address] PCP - General Internal Medicine 03/13/21 Kodi Bustos DO [address] [address] Surgeon Cardiothoracic Surgery 11/06/22 Sujit Arriola MD [address] [place] [address] Consulting Physician Pulmonary Disease 11/06/22 Sujit Reyes MD [address] [place] [address] Referring Physician 12/04/22 Patricia Yañez LPN [facility] TCM Nurse 08/25/24 10/17/24 Zee Lazar DO [address] [place] [address] Resident 09/08/24 documented as of this encounter
--- OUTSIDE RECORDS SUMMARY | 2024-11-09 10:29 | XMS_ITS | Encounter Summary ---
Author Organization Healthcare Address [address] [place] [address] Care Team Providers Care Music Rehabilitation Therapist Name Role Phone Alisa Kunz DO Primary Care Provider [phone] Kodi Bustos DO Unavailable [phone] Sujit Arriola MD Unavailable [phone] Sujit Reyes MD Unavailable [phone] Patricia Yañez LPN Unavailable Unavailab Zee Lr DO Unavailable [phone] Encounter Details Date Type Department Care Team [...] Score 0 09/08/2024 [facility] - Occupational Stress Questionnaire Answer [...] drink first t anselmo in the morning (EYE-RANGE MECHANIC) to steady your nerves or to [...] Description 12/06/2024 11:20 AM EDT Office Visit [facility] Internal Medicine [address]rd [place] [address] Alisa Kunz, DO [address] [place] [address] 12/23/2024 4:00 PM EDT Office Visit [facility] Medicine Specialties [address] [place] [address] Lavern Shoemaker MD [address] [place] [address] 02/02/2025 8:40 AM EST Office Visit [facility] Internal Medicine [address], 3rd [place] [address] Alisa Kunz, DO [address] [place] [address] 02/09/2025 12:20 PM EST Office Visit [facility] Endocrinology [address] [place] [address] Anne-Marie Kolb, SWITCH OPERATORS SUPERVISOR [address] [facility] 125 [place] [address] documented as of this encounter Visit Diagnoses [...] documented as of this encounter Care Teams Music Rehabilitation Therapist Relationship Specialty Start Date End Date Alisa Kunz DO [address] [place] [address] PCP - General Internal Medicine 03/13/21 Kodi Bustos, [address] [address] Surgeon Cardiothoracic Surgery 11/06/22 Sujit Arriola MD [address] [place] [address] Consulting Physician Pulmonary Disease 11/06/22 Sujit Reyes MD [address] [place] [address] Referring Physician 12/04/22 Patricia Yañez, AIR TURNING MACHINE FEEDER [facility] TCM Nurse 08/25/24 10/17/24 Zee Lazar DO 800 [place], [place] [address] Resident 09/08/24 documented as of this encounter
--- OUTSIDE RECORDS SUMMARY | 2024-11-09 10:29 | XMS_ITS | Encounter Summary ---
Author Organization [facility] Address [address] [place] [address] Care Team Providers Care Supervisor Mill Name Role Phone Alisa Kunz DO Primary Care Provider [phone] Kodi Bustos DO Unavailable [phone] Sujit Arriola MD Unavailable [phone] Sujit Reyes MD Unavailable [phone] Patricia Yañez LPN Unavailable Unavailab Zee Lr DO Unavailable [phone] Reason for Visit * Reason Onset Date Comments HCN - Patient Message 09/23/2024 Encounter Details Date Type Department Care Team (Late st Contact Info) Description 09/23/2024 Telephone [facility] Internal Medicine [address], [address]rd [place] [address] Alisa Kunz DO [address] [place] [address] HCN - Patient Message Social [...] drink first t anselmo in the morning (EYE-TELEPHOTO INSTALLER) to steady your nerves or to [...] optimal time of day to reach caller: [phone] Note: Please do not reply to this message. Follow-up communication and further actions as a result of this message need to be communicated with the patient directly, if the patient is not active onMyChart. If the patient is active on MyChart, they will receive notification of the communication/outcome via in2appshart. documented in this encounter Plan of Treatment Upcoming Encounters Date Type Department Care Team (Late st Contact Info) Description 12/06/2024 11:20 AM EDT Office Visit [facility] Internal Medicine [address] [place] [address] Alisa Kunz, [address] [place] [address] 12/23/2024 4:00 PM EDT Office Visit [facility] Medicine Specialties [address] [place] [address] Lavern Shoemaker MD [address] [id number] 02/02/2025 8:40 AM EST Office Visit [facility] Internal Medicine [address] [place] [address] Alisa Kunz DO [address] [place] [address] 02/09/2025 12:20 PM EST Office Visit [facility] Endocrinology [address] [place] [address] Anne-Marie Kolb L, SENIOR PORTFOLIO MANAGER 2195 [facility] 125 [place] [address] documented as of this encounter [...] as of this encounter Care Teams Supervisor Mill Relationship Specialty Start Date End Date Alisa Kunz DO [address] [place] [address] PCP - General Internal Medicine 03/13/21 Kodi Bustos DO [address] [place] [address] Surgeon Cardiothoracic Surgery 11/06/22 Sujit Arriola MD [address] [place] [address] Consulting Physician Pulmonary Disease 11/06/22 Sujit Reyes MD [address] [place] [address] Referring Physician 12/04/22 Patricia Yañez LPN [facility] TCM Nurse 08/25/24 10/17/24 Zee Lazar DO [address] [place] [address] Resident 09/08/24 documented as of this encounter
--- OUTSIDE RECORDS SUMMARY | 2024-11-09 10:29 | XMS_ITS | Encounter Summary ---
Author Organization [facility] Address [address] [place] [address] Care Team Providers Care Data Entry Technician Name Role Phone Alisa Kunz Torri DO Primary Care Provider [phone] Kodi Bustos DO Unavailable [phone] Sujit Arriola MD Unavailable [phone] Sujit Reyes MD Unavailable [phone] Patricia Yañez LPN Unavailable Unavailab Zee Lr DO Unavailable [phone] Encounter Details Date Type Department Care Team (Late st Contact Info) Description 09/16/[address] [facility] Medicine Specialties [address] [place] [address] [place] [address] Social History Tobacco Use Types Packs/Day Years [...] week 08/30/2022 How often do you attend [facility] or sabianist services? 1 to 4 [...] any time in the past 12 [facility], were you homeless or living in [...] drink first t anselmo in the morning (EYE-MATERIALS MANAGEMENT SUPERVISOR) to steady your nerves or to get rid of a hangover? 0 08/14/2024 CAGE Questionnaire Score 0 025 Utilities Answer Date Recorded In the past 12 months has th e [employer], gas, oil, or water company threatened to [...] there was previous discussion about going [place], she's wondering if that would be the next step or if she would need to see a plycor operator with us first She would like a call back from the nursing team as quickly as possible CB: [phone] documented in this encounter Plan of Treatment Upcoming Encounters Date Type Department Care Team (Late st Contact Info) Description 12/06/2024 11:20 AM EDT Office Visit [facility] Internal Medicine [address] 3rd [place] [address] Alisa Kunz, DO [address] [place] [address] 12/23/2024 4:00 PM EDT [facility] Medicine Specialties [address] 2[address] [place] [address] Lavern Shoemaker MD [address] [id number] 02/02/2025 8:40 AM EST Office Visit [facility] Internal Medicine [address] 3rd [place] [address] Alisa Kunz, DO [address] [place] [address] 02/09/2025 12:20 PM EST Office Visit [facility] Endocrinology [address] [place] [address] Anne-Marie Kolb L, PRESS TENDER SMOKE SIGNAL 2195 [facility] 125 [place] [address] documented as of this encounter [...] of this encounter Care Teams Data Entry Technician Relationship Specialty Start Date End Date Alisa Kunz DO [address] [place] [address] PCP - General Internal Medicine 03/13/21 Kodi Bustos, DO [address] [place] [address] Surgeon Cardiothoracic Surgery 11/06/22 Sujit Arriola MD [address] [place] [address] Consulting Physician Pulmonary Disease 11/06/22 Sujit Reyes MD [address] [place] [address] Referring Physician 12/04/22 Patricia Yañez LPN [facility] TCM Nurse 08/25/24 10/17/24 Zee Lazar DO [address] [place] [id number] Resident 09/08/24 documented as of this encounter
--- OUTSIDE RECORDS SUMMARY | 2024-11-09 10:29 | XMS_ITS | Encounter Summary ---
Author Organization [facility] Address [address] [place] [address] Care Team Providers Care Scrap Collector Name Role Phone Alisa Kunz DO Primary Care Provider [phone] Kodi Bustos DO Unavailable [phone] Sujit Arriola MD Unavailable [phone] Sujit Reeys MD Unavailable [phone] Patricia Yañez LPN Unavailable Unavailab Zee Lr DO Unavailable [phone] Encounter Details Date Type Department Care Team (Late st Contact Info) Description 09/17/2024 Orders Only [facility] Internal Medicine [address]rd [place] [address] Alisa Kunz DO [address] [place] [address] Social History Tobacco Use Types [...] drink first t anselmo in the morning (EYE-STORAGE SOLUTIONS ARCHITECT) to steady your nerves or to [...] Description 12/06/2024 11:20 AM EDT Office Visit [facility] Internal Medicine [address] 3[address] [place] [address] Alisa Kunz, DO [address] [facility] [address] [place] [address] 12/23/2024 4:00 PM EDT [facility] Medicine Specialties [address], 2[address] [place] [address] Lavern Shoemaker MD [address] [place], [place] [phone] 02/02/2025 8:40 AM EST Office Visit [facility] Internal Medicine [address] [place] [address] Alisa Kunz, DO [address] [place] [address] 02/09/2025 12:20 PM EST Office Visit [facility] Endocrinology [address] [place] [address] Anne-Marie Kolb, FLORAL DESIGNER [address] [place] [address] documented as of this encounter Visit Diagnoses [...] as of this encounter Care Teams Scrap Collector Relationship Specialty Start Date End Date Alisa Kunz DO [address] [place] [address] PCP - General Internal Medicine 03/13/21 Kodi Bustos DO [address] [phone] Surgeon Cardiothoracic Surgery 11/06/22 Sujit Arriola MD [address] [place] [address] Consulting Physician Pulmonary Disease 11/06/22 Sujit Reyes MD [address] [place] [address] Referring Physician 12/04/22 Patricia Yañez LPN [facility] TCM Nurse 08/25/24 10/17/24 Zee Lazar DO [address] [place], [place] [phone] Resident 09/08/24 documented as of this encounter
--- OUTSIDE RECORDS SUMMARY | 2024-11-09 10:31 | XMS_ITS | Encounter Summary ---
Author Organization [facility] Address [address] [place] [address] Care Team Providers Care Assistant Boys Track Coach Name Role Phone Alisa Kunz DO Primary Care Provider [phone] Kodi Bustos DO Unavailable [phone] Sujit Arriola MD Unavailable [phone] Sujit Reyes MD Unavailable [phone] Patricia Yañez LPN Unavailable Unavailab Zee Lr DO Unavailable [phone] Reason for Visit * Reason Onset Date Comments HCN Clinical Concern/Question 08/30/2024 Encounter Details Date Type Department Care Team (Late st Contact Info) Description 08/30/2024 Telephone [facility] Internal Medicine [address]rd [place] [address] Alisa Kunz DO [address] [place] [address] HCN Clinical Concern/Question Social History [...] Score 0 09/08/2024 [facility] [...] drink first t anselmo in the morning (EYE-DRYCLEANER) to steady your nerves or to get [...] Please call to advise Best contact number: [phone] (mobile) Optimal time of day to reach caller: ANYTIME Additional comments/information from caller: None Note: Please do not reply to this message. Follow-up communication and further actions as a result of this message need to be communicated with the patient directly, if the patient is not active onMyChart. If the patient is active on MyChart, they will receive notification of the communication/outcome via Graphicly. documented in this encounter Plan of Treatment Upcoming Encounters Date Type Department Care Team (Late st Contact Info) Description 12/06/2024 11:20 AM EDT Office Visit [facility] Internal Medicine [address]rd [place] [address] Alisa Kunz DO [address] [place] [address] 12/23/2024 4:00 PM EDT [facility] Medicine Specialties [address]nd [place] [address] Lavern Shoemaker MD [address] [place] [address] 02/02/2025 8:40 AM EST Office Visit [facility] Internal Medicine [address]rd [place] [address] Alisa Kunz DO [address] [place] [address] 02/09/2025 12:20 PM EST Office Visit [facility] Endocrinology [address] [place] [address] Anne-Marie Kolb L, SPEEDER WORKER [address] [place] [address] documented as of this encounter [...] as of this encounter Care Teams Assistant Boys Track Coach Relationship Specialty Start Date End Date Alisa Kunz DO [address] [facility] [address] [place] [address] PCP - General Internal Medicine 03/13/21 Kodi Bustos DO [address] [phone] Surgeon Cardiothoracic Surgery 11/06/22 Sujit Arriola MD [address] [place] [address] Consulting Physician Pulmonary Disease 11/06/22 Sujit Reyes MD [address] [place] [address] Referring Physician 12/04/22 Patricia Yañez LPN [facility] TCM Nurse 08/25/24 10/17/24 Zee Lazar DO [address] [place] [address] Resident 09/08/24 documented as of this encounter
--- OUTSIDE RECORDS SUMMARY | 2024-11-09 10:31 | XMS_ITS ---
Author Organization [facility] Address [address] [place] [address] Care Team Providers Care Civil Engineering Draftsperson Name Role Phone Alisa Kunz Torri DO Primary Care Provider [phone] Kodi Bustos DO Unavailable [phone] Sujit Arriola MD Unavailable [phone] Sujit Reyes MD Unavailable [phone] Zee Lazar DO Unavailable [phone] Transitional Care Management Status:Closed (Closed) Start date:08/25/2024 Enrollment date:08/25/2024 Enrollment reason:Identified using hospital discharge data End date:09/17/2024 Close reason:Patient Readmitted Overview This episode type is for outpatient care managers enrolling patients in the [facility] Transitional Care Management program. Continued Care and Services Coordination
--- OUTSIDE RECORDS SUMMARY | 2024-11-09 10:31 | XMS_ITS | Encounter Summary ---
Author Organization [facility] Address [address] [place] [address] Care Team Providers Care Building Wrecker Name Role Phone Alisa Kunz DO Primary Care Provider Kodi Bustos DO Unavailable [phone] Sujit Arriola MD Unavailable [phone] Sujit Reyes MD Unavailable [phone] Zee Lazar DO Unavailable Reason for Visit * Reason Onset Date Comments HCN Lab/home Health 11/02/2024 Encounter Details Date Type Department Care Team (Late st Contact Info) Description 11/02/2024 Telephone [facility] Internal Medicine [address]rd [place] [address] Alisa Kunz DO [address] [place] [address] HCN Lab/home Health Social History [...] often do you attend chur ch or christian services? 1 to 4 times [...] Recorded Patient Health Questionnaire-2 Score 0 10/27/2024 [facility] - Occupational Stress Questionnaire Answer Date [...] drink first t anselmo in the morning (EYE-ELEVATOR SERVICEMAN) to steady your nerves or to get rid of a hangover? 0 08/14/2024 CAGE Questionnaire Score 0 06/07/2 025 Utilities Answer Date Recorded In the [...] PT. Please call Best contact number: Other: [phone] Optimal time of day to reach caller: ANYTIME Additional comments/information from caller: None Note: Please do not reply to this message. Follow-up communication and further actions as a result of this message need to be communicated with the patient directly, if the patient is not active onMyChart. If the patient is active on MyChart, they will receive notification of the communication/outcome via Psydext. documented in this encounter Plan of Treatment Upcoming Encounters Date Type Department Care Team (Late st Contact Info) Description 12/06/2024 11:20 AM EDT Office Visit [facility] Internal Medicine [address] 3rd [place] [address] Alisa Kunz, [address] [place] [address] 12/23/2024 4:00 PM EDT Office Visit [facility] Medicine Specialties [address] [place] [address] Lavern Shoemaker MD [address] [place] [address] 02/02/2025 8:40 AM EST Office Visit [facility] Internal Medicine [address]rd [place] [address] Alisa Kunz DO [address] [place] [address] 02/09/2025 12:20 PM EST Office Visit [facility] Endocrinology [address] [place] [address] Anne-Marie Kolb L, BANQUET STEWARD 2[address] [facility] 125 [place] [address] documented as of this encounter Visit Diagnoses [...] as of this encounter Care Teams Building Wrecker Relationship Specialty Start Date End Date Alisa Kunz DO [address] [place] [address] PCP - General Internal Medicine 03/13/21 Kodi Bustos DO [address] [place] [address] Surgeon Cardiothoracic Surgery 11/06/22 Sujit Arriola MD [address] [place] [address] Consulting Physician Pulmonary Disease 11/06/22 Sujit Reyes MD [address] [place] [address] Referring Physician 12/04/22 Zee Lazar DO [address] [place] [id number] Resident 09/08/24 documented as of this encounter
--- OUTSIDE RECORDS SUMMARY | 2024-11-09 10:31 | XMS_ITS | Encounter Summary ---
Author Organization [facility] Address [address] [place] [address] Care Team Providers Care Press Operator Automatic Name Role Phone Alisa Kunz Primary Care Provider [phone] Encounter Details Date Type Department Care Team (Late st Contact Info) Description 10/07/2024 Telephone [facility] [address] [facility] [address] [place] [address] Mike Mariee, Regional Transportation Manager Social History Tobacco Use Types Packs/Day Years [...] no 10/12/2024 Feels Threatened by Someone no 08/0 07/2024 Does Anyone Try to Keep You [...] 10:26 AM EDT Cece Prieto RN * [place] Suicide Severity Rating Scale (Screener/Recent Self-Report) Question Answer Date of Assessment Author 6. Suicidal Behavior (Lifetime) No 10:26 AM EDT Cece Prieto RN documented as of this encounter Miscellaneous Notes * Telephone Encounter - Mike Mariee Regional Transportation Manager - 10/07/2024 2:16 PM EDT Called patient to discuss HM or remote lab options for INR rechecks. Patient would prefer to continue with Ge HM and will schedule in clinic appt in the future to obtain replacement HM. Mike Mariee DRAFTER MARINE 10/07/2024 14:18 EDT documented in this encounter Plan of Treatment Upcoming Encounters Date Type Department Care Team (Late st Contact Info) Description 11/28/2024 7:45 PM EDT Appointment [facility] SLEEP LAB [address] [facility] [address] [place] [address] 12/02/2024 3:30 PM EDT Office Visit [facility] CARD[facility] [address] [place] [address] [place] [address] Sujit Reyes MD [address] [facility] [address] [place], [place] [address] 01/19/2025 1:45 PM EST Office Visit [facility] [address] [facility] [address] [place] [address] Naveen Velasquez MD [address] [facility] [address] [place], [place] [id number] documented as of this encounter Visit Diagnoses Not on filedocumented in this encounter Care Teams Press Operator Automatic Relationship Specialty Start Date End Date Alisa Kunz DO [address] [place] [address] PCP - General Internal Medicine 04/26/21 documented as of this encounter
--- OUTSIDE RECORDS SUMMARY | 2024-11-09 10:31 | XMS_ITS | Encounter Summary ---
Author Organization [facility] Address [address] [place] [address] Care Team Providers Care Accounting System Expert Name Role Phone Alisa Kunz Primary Care Provider [phone] Encounter Details Date Type Department Care Team [...] 10:26 AM EDT Cece Prieto RN * [place] Suicide Severity Rating Scale (Screener/Recent Self-Report) Question Answer Date of Assessment Author 6. Suicidal Behavior (Lifetime) No 10:26 AM EDT Cece Prieto RN documented as of this encounter Plan of Treatment Upcoming Encounters Date Type Department Care Team (Late st Contact Info) Description 11/28/2024 7:45 PM EDT Appointment [facility] SLEEP LAB [address] [place] [address] 12/02/2024 3:30 PM EDT Office Visit [facility] CARDIOLOGY [address] [place] [address] [address] Sujit Reyes MD [address] [place] [address] 01/19/2025 1:45 PM EST Office Visit [facility] CARDIOLOGY [address] [place] [address] Naveen Velasquez MD [address] [place] [address] documented as of this encounter Visit Diagnoses Not on filedocumented in this encounter Care Teams Accounting System Expert Relationship Specialty Start Date End Date Alisa Kunz DO [address] [place], [place] [address] PCP - General Internal Medicine 04/26/21 documented as of this encounter
--- OUTSIDE RECORDS SUMMARY | 2024-11-09 10:31 | XMS_ITS | Encounter Summary ---
Author Organization [facility] Address [address] [place] [address] Care Team Providers Care Chain Builder Loom Control Name Role Phone Alisa Kunz Primary Care Provider [phone] Encounter Details Date Type Department Care Team (Latest Contact Info) Description 10/05/2024 Anticoagulation Visit [facility] [address] [facility] [address] [place] [address] Mike Mariee, Medication Manager Left ventricular apical thrombus (Primary Dx) [...] this encounter Progress Notes * Mike Mariee, Medication Manager - 10/05/2024 8:42 AM EDT [facility] An[facility]agulation Clinic Progress Note Patient Demographics Method of INR reporting: Dotstudioz Home Monitor SN [id number] Estimated OOP Cost: Indication: Left Ventricular Atypical Thrombus (~2012) Referring Provider Nanette Pryor APRN Reason patient is not on a DOAC: Goal INR: 2-3 Warfarin Start Date ~02/12/24 Reason patient is not on home monitor: [id number]: Planned Duration of Therapy Indefinite Relevant medical [...] - HM 1.4 - Clinic 1.32 - ELECTRICAL LINE WORKER 2.8 2.0 Notes Admitted [facility] Rec'd 05/27 [...] Verbal release: Signed 03/05/24 Preferred contact number: [phone] Alternative contact number(s): [phone] (Doron) [phone] (Ruthie) [phone] (Madyson) Patient Appropriate for WarfNoCall ? No [...] further questions at this time. Mike Kodi [facility] 10/05/2024 09:01 EDT I, Marj Delgado, PharmD, have reviewed the note in full and agree with the assessment and plan. 10/05/24 09:48 EDT documented in this encounter Plan of Treatment Upcoming Encounters Date Type Department Care Team (Late st Contact Info) Description 11/28/2024 7:45 PM EDT Appointment [facility] SLEEP [facility] 1720 [facility] [address] [place] [address] 12/02/2024 3:30 PM EDT Office Visit [facility] CARDIOLOGY [address] [facility] [place] [address] Sujit Reyes MD 1720 [facility] [address] [place], [place] [address] 01/19/2025 1:45 PM EST Office Visit [facility] CARDI[facility] 17[address] [facility] [address] [place] [address] Naveen Velasquez MD [address] [facility] [address] [place], [place] [address] documented as of this encounter Procedures Procedure Name Priority Date/Time Associated Diagnosis Comments SCANNED - LABS 10/05/2024 PROTIME-INR Routine 10/04/2024 documented in this encounter Results * LABS SCANNED (10/05/2024) [facility] LAB BLOOD ORDERABLES Final Re sult * Protime-INR (10/04/2024) INR 2.04 Blood 10/04/2024 [facility] Provider LAB BLOOD ORDERABLES Lee Ann l Result documented in this encounter Visit Diagnoses Diagnosis Left ventricular apical thrombus- Primary documented in this encounter Care Teams Chain Builder Loom Control Relationship Specialty Start Date End Date Alisa Kunz DO [address] [place] [address] PCP - General Internal Medicine 04/26/21 documented as of this encounter
--- OUTSIDE RECORDS SUMMARY | 2024-11-09 10:31 | XMS_ITS | Encounter Summary ---
Author Organization [facility] Address [address] [place] [address] Care Team Providers Care Internet Marketing Strategist Name Role Phone Alisa Kunz DO Primary Care Provider [phone] Laura Albright IMPOSER Unavailable Unavailable Balwinder Vale Unavailable Unavailable Kodi Bustos DO Unavailable [phone] Sujit Arriola MD Unavailable [phone] HatLaura navas LPN Unavailable Unavailable Sujit Reyes MD Unavailable [phone] Zully Caldwell IMPOSER Unavailable Unavailable HatLaura navas IMPOSER Unavailable Unavailable HatLaura navas IMPOSER Unavailable Unavailable Tanya Powell Unavailable [phone] Sarah Reyes IMPOSER Unavailable Unavailable Ekaterina Gómez Unavailable Unavailable Zully Caldwell IMPOSER Unavailable Unavailable Ekaterina Gómez Unavailable Unavailable Patricia Yañez IMPOSER Unavailable Unavailab Zee Lr DO Unavailable [phone] Reason for Visit * Reason Comments Med Refill Encounter Details Date Type Department Care Team (Late st Contact Info) Description 03/18/2022 Refill [facility] Internal Medicine [address], [address]rd [place] [address] Alisa Kunz DO [address] [place] [address] Social History Tobacco Use Types [...] Description 12/06/2024 11:20 AM EDT Office Visit [facility] Internal Medicine [address], 3rd [place] [address] Alisa Kunz DO [address] [place] [address] 12/23/2024 4:00 PM EDT Office Visit [place] [facility] [address], [address] [place] [address] Lavern Shoemaker MD [address] [id number] 02/02/2025 8:40 AM EST Office Visit [facility] Internal Medicine [address], [address]rd [place] [address] Alisa Kunz L, DO [address] [place] [address] 02/09/2025 12:20 PM EST [facility] [address] [place] [address] Anne-Marie Kolb, ANALYTICS CONSULTANT [address] [facility] 125 [place] [address] documented as of this encounter [...] documented as of this encounter Care Teams Internet Marketing Strategist Relationship Specialty Start Date End Date Alisa Kunz DO [address] [place] [address] PCP - General Internal Medicine 03/13/21 Laura Albright LPN VALUE-[place]ED [place] [address] TCM Nurse 08/30/22 09/27/22 Balwinder Vale [address] [address] Community Health Worker Marbleizing Machine Tender 08/30/22 09/06/22 Kodi Bustos DO [address] [address] Surgeon Cardiothoracic Surgery 11/06/22 Sujit Arriola MD [address] [place] [address] Consulting Physician Pulmonary Disease 11/06/22 Laura Albright LPN [employer] [place] [address] TCM Nurse 12/02/22 01/01/23 Sujit Reyes MD [address] [place] [address] Referring Physician 12/04/22 Zully Caldwell LPN VALUE[employer] [place] [address] TCM Nurse 02/03/23 03/05/23 Laura Albright LPN VALUE[employer] [place] [address] TCM Nurse 08/05/23 09/04/23 Laura Albright LPN VALUE[employer] [place] [address] TCM Nurse 02/17/24 03/18/24 Tanya Powell 2[address] [facility] 125 [place] [address] Registered Nurse 04/02/24 07/01/24 Sarah Reyes LPN TCM Nurse 05/27/24 06/26/24 Ekaterina Gómez Head Cager Marbleizing Machine Tender 07/14/24 07/14/24 Zully Caldwell LPN VAL[employer] [place] [address] TCM Nurse 07/16/24 08/15/24 Ekaterina Gómez Head Cager Marbleizing Machine Tender 08/16/24 08/16/24 Patricia Yañez LPN [facility] TCM Nurse 08/25/24 10/17/24 Zee Lazar DO [address] [place] [address] Resident 09/08/24 documented as of this encounter
--- OUTSIDE RECORDS SUMMARY | 2024-11-09 10:31 | XMS_ITS | Encounter Summary ---
Author Organization [facility] ystem Address [address] [place] [address] Care Team Providers Care Physicist Solid Earth Name Role Phone Alisa Kunz Primary Care Provider [phone] Reason for Visit * Reason Comments Med Refill Encounter Details Date Type Department Care Team (Late st Contact Info) Description 10/14/2023 Refill [facility] [address] [facility] [address] [place] [address] Sujit Reyes MD [address] [facility] [address] [place] [address] Med Refill Social History Tobacco Use Types [...] Info) Description 11/28/2024 7:45 PM EDT Appointment [facility] 1720 [facility] [address] [place] [address] 12/02/2024 3:30 PM EDT Office Visit [facility] [address] [facility] [place] [address] Sujit Reyes MD 17[address] [facility] Bld[address] E [address] [place], [place] [phone] 01/19/2025 1:45 PM EST Office Visit [facility] [address] [facility] [address] [place] [address] Naveen Velasquez MD [address] [facility] [address] E [address] [place], [place] [address] documented as of this encounter Visit Diagnoses Not on filedocumented in this encounter Care Teams Physicist Solid Earth Relationship Specialty Start Date End Date Alisa Kunz DO [address] [place], [place] [phone] PCP - General Internal Medicine 04/26/21 documented as of this encounter
--- OUTSIDE RECORDS SUMMARY | 2024-11-09 10:31 | XMS_ITS | Encounter Summary ---
Author Organization [facility] Address [address] [place] [address] Care Team Providers Care Assembler Show Motor Name Role Phone Alisa Kunz DO Primary Care Provider Kodi Bustos DO Unavailable [phone] Sujit Arriola MD Unavailable [phone] Sujit Reyes MD Unavailable [phone] Zully Caldwell FIELD ADJUSTER Unavailable Unavailable Ekaterina Gómez Unavailable Unavailable Patricia Yañez FIELD ADJUSTER Unavailable Unavailab Zee Lr DO Unavailable [phone] Reason for Visit * Reason Onset Date Comments HCN Clinical Concern/Question 08/09/2024 Encounter Details Date Type Department Care Team (Late st Contact Info) Description 08/09/2024 Telephone [facility] Liberty Heth [address] [facility], [address] [place] [address] Cassius Gonzales MD 800 [place] [address] HCN Clinical Concern/Question Social History [...] Recorded Patient Health Questionnaire-2 Score 0 09/08/2024 [facility] - [...] money to buy more. Never true 08/26/19 25 Within the past 12 months, t [...] drink first t anselmo in the morning (EYE-RENTAL REPRESENTATIVE) to steady your nerves or to [...] 9:33 PM EDT Sexual Orientation Straight 11/01/2020 9 :33 PM EDT documented as of this encounter [...] Month) No 025 8:23 PM EDT Sandra Cunha RN 2. Non-Specific Active Suici dillon Thoughts (Past 1 Month) No 09/09/2024 8:23 PM EDT Dwayne Cunha RN 6. Suicidal Behavior (Lifetime) No 8:23 PM EDT Sandra Cunha RN documented as of this encounter Miscellaneous [...] needing a heart cath. Best contact number: [phone] Optimal time of day to reach caller: ANYTIME Additional comments/information from caller: None Note: Please do not reply to this message. Follow-up communication and further actions as a result of this message need to be communicated with the patient directly, if the patient is not active onMyChart. If the patient is active on MyChart, they will receive notification of the communication/outcome via [employer]. documented in this encounter Plan of Treatment Upcoming Encounters Date Type Department Care Team (Late st Contact Info) Description 12/06/2024 11:20 AM EDT Office Visit [facility] Internal Medicine [address], [address]rd [place] [address] Alisa Kunz DO [address] [place] [address] 12/23/2024 4:00 PM EDT Office Visit [facility] [address], 2nd [place] [address] Lavern Shoemaker MD 800 [place] [address] 02/02/2025 8:40 AM EST Office Visit [facility] Internal Medicine [address], 3[address] [place] [address] Alisa Kunz DO [address] [place] [address] 02/09/2025 12:20 PM EST Office Visit [facility] Endocrinology [address] [place] [address] Anne-Marie Kolb L, ORE CHARGER [address] [place] [address] documented as of this encounter [...] as of this encounter Care Teams Assembler Show Motor Relationship Specialty Start Date End Date Alisa Kunz DO [address] [place] [address] PCP - General Internal Medicine 03/13/21 Kodi Bustos DO [address] [place] [address] Surgeon Cardiothoracic Surgery 11/06/22 Sujit Arriola MD [address] [place] [address] Consulting Physician Pulmonary Disease 11/06/22 Sujit Reyes MD [address] [place] [address] Referring Physician 12/04/22 Zully Caldwell LPN [employer] [address] TCM Nurse 07/16/24 08/15/24 Ekaterina Gómez Real Estate Rep Rotary Dump Operator 08/16/24 08/16/24 Patricia Yañez LPN [facility] TCM Nurse 08/25/24 10/17/24 Zee Lazar DO [address] [place] [address] Resident 09/08/24 documented as of this encounter
--- OUTSIDE RECORDS SUMMARY | 2024-11-09 10:31 | XMS_ITS | Encounter Summary ---
Author Organization [facility] Address [address] [place] [address] Care Team Providers Care Marine Gear Keeper Name Role Phone Alisa Kunz Primary Care Provider [phone] Encounter Details Date Type Department Care Team (Late st Contact Info) Description 10/12/2024 Telephone [facility] [address] [facility] [address] [place] [address] Marj Delgado, PharmD [address]40 [place] [address] Social History Tobacco Use Types [...] 10:26 AM EDT Cece Prieto RN * Fithian Suicide Severity Rating Scale (Screener/Recent Self-Report) Question [...] go get INR checked on Friday at [facility]. Marj Delgado PharmD 10/13/2024 11:45 EDT * Telephone Encounter - Marj Delgado PharmD - 10/12/2024 11:24 AM EDT Spoke to Rosalba from cardio, patients INR today on admission was 1.37, still having concerns over patients home monitor. Last INR check was 2.04 on 10/04 at [facility] (not home monitor)- patient had been taking [...] Info) Description 11/28/2024 7:45 PM EDT Appointment [facility] [address] [place] [address] 12/02/2024 3:30 PM EDT Office Visit [facility] [address] [place] [address] [place] [address] Sujit Reyes MD [address] [place] [address] 01/19/2025 1:45 PM EST Office Visit [facility] [address] [place] [address] Naveen Velasquez MD [address] [facility] [address] [place] [address] documented as of this encounter Visit Diagnoses Not on filedocumented in this encounter Care Teams Marine Gear Keeper Relationship Specialty Start Date End Date Alisa Kunz DO [address] [facility] 304 [place], [place] [address] PCP - General Internal Medicine 04/26/21 documented as of this encounter
--- OUTSIDE RECORDS SUMMARY | 2024-11-09 10:31 | XMS_ITS | Encounter Summary ---
Author Organization [facility] Address [address] [place] [address] Care Team Providers Care Tourist Adviser Name Role Phone Alisa Kunz DO Primary Care Provider [phone] Kodi Bustos DO Unavailable [phone] Sujit Arriola MD Unavailable [phone] Sujit Reyes MD Unavailable [phone] Patricia Yañez LPN Unavailable Unavailab Zee Lr DO Unavailable [phone] Reason for Visit * Reason Comments TCM Call Encounter Details Date Type Department Care Team (Late st Contact Info) Description 08/25/2024 Patient Outreach [facility] [address] [facility], [address] [place] [address] Patricia Yañez LPN [facility] TCM Call Social [...] 0 09/08/2024 [facility] - Occupational Stress Questionnaire Answer Date Recorded [...] drink first t anselmo in the morning (EYE-WIRE TWISTER) to steady your nerves or to get rid of a hangover? 0 08/14/2024 CAGE Questionnaire Score 0 025 Utilities Answer Date Recorded In the past 12 months has th e [employer], gas, oil, or water company threatened to [...] way Not at all 09/08/2024 11:19 AM EDShashank Valiente Patient Health Questionnaire -9 Score 0 09/08/2024 [...] Date: 08/14/2024 Discharge Date: 08/24/2024 Hospital Service: [facility] Discharge Diagnosis: Acute on chronic hypoxic respiratory failure 08/25/2024 TCM call # 1 Patient Reached: Y Outcome: Called patient for TCM nurse call. Notified patient she would need to be seen for hospitalllow . Patient states that she has an [...] Description 12/06/2024 11:20 AM EDT Office Visit [facility] Internal Medicine [address], [address]rd [place] [address] Alisa Kunz DO [address] [address] 12/23/2024 4:00 PM EDT Office Visit [place] [facility] [address], 2nd [place] [address] Lavern Shoemaker MD 800 [place], [place] [address] 02/02/2025 8:40 AM EST Office Visit [facility] Internal Medicine [address], 3rd [place] [address] Alisa Kunz DO [address] [facility] 304 [place] [address] 02/09/2025 12:20 PM EST Office Visit [facility] Endocrinology [address] [place] [address] Anne-Marie Kolb, ASSISTANT DIRECTOR OF PUBLIC WORKS [address] [place] [address] documented as of this encounter Visit Diagnoses [...] documented as of this encounter Care Teams Tourist Adviser Relationship Specialty Start Date End Date Alisa Kunz DO [address] [place] [address] PCP - General Internal Medicine 03/13/21 Kodi Bustos DO [address] [address] Surgeon Cardiothoracic Surgery 11/06/22 Sujit Arriola MD [address] [place] [address] Consulting Physician Pulmonary Disease 11/06/22 Sujit Reyes MD [address] [place] [address] Referring Physician 12/04/22 Patricia Yañez LPN [facility] TCM Nurse 08/25/24 10/17/24 Zee Lazar DO 800 [place] [address] Resident 09/08/24 documented as of this encounter
--- OUTSIDE RECORDS SUMMARY | 2024-11-09 10:31 | XMS_ITS | Encounter Summary ---
Author Organization [facility]stem Address [address] [place] [address] Care Team Providers Care Coordinator Skill Training Program Name Role Phone Alisa Kunz Primary Care Provider [phone] Reason for Referral * Cardiac (Routine) - Closed Specialty Diagnoses / Procedures Referred By Luis Armando t Referred To Contact Diagnoses Paroxysmal atrial fibrillation Procedures Cardioversion External in Cardiology Department Naveen Velasquez MD 17[address] [facility] [address] [place] [address] Phone: tel: fax: Referral ID Status Reason Start Date Expiration Date Visits Re quested Visits Authorized [id number] Closed 10/12/2024 01/04/2026 1 1 Reason for Visit * Reason Onset Date Comments DR. [facility] - CARDIOVERSION 10/05/2024 Encounter Details Date Type Department Care Team (Late st Contact Info) Description 10/05/2024 Telephone [facility] CARDIOLOG[facility] [address] [facility] [address] [place] [address] Naveen Velasquez MD [address] [facility] [address] [place] [address] DR. VELASQUEZ - CARDIOVERSION Social History Tobacco [...] Felipe Relationship: Self Best call back number: [phone] What is the best time to reach [...] Info) Description 11/28/2024 7:45 PM EDT Appointment [facility] [address] [facility] [address] [place] [address] 12/02/2024 3:30 PM EDT Office Visit [facility] CARDIOLOGY [address] [place] [address] [place] [address] Sujit Reyes MD 17[address] [facility] [address] [place], [place] [address] 01/19/2025 1:45 PM EST Office Visit [facility] CARDI[facility] [address] [facility] [address] [place] [address] Naveen Velasquez MD 1720 [facility] [address] [place] [address] documented as of this encounter Results * [...] fibrillation documented in this encounter Care Teams Coordinator Skill Training Program Relationship Specialty Start Date End Date Alisa Kunz DO 0 [place] [address] PCP - General Internal Medicine 04/26/21 documented as of this encounter
--- OUTSIDE RECORDS SUMMARY | 2024-11-09 10:31 | XMS_ITS | Encounter Summary ---
Author Organization Healthcare Address [address] [place] [address] Care Team Providers Care Ticket Sales Agent Name Role Phone Alisa Kunz DO Primary Care Provider Kodi Bustos DO Unavailable [phone] Sujit Arriola MD Unavailable [phone] Sujit Reyes MD Unavailable [phone] Zee Lazar DO Unavailable [phone] Encounter Details Date Type Department Care Team (Late st Contact Info) Description 11/01/2024 Orders Only [facility] Internal Medicine [address]rd [place] [address] Alisa Kunz DO [address] [place] [address] Social History Tobacco Use Types [...] Recorded Patient Health Questionnaire-2 Score 0 10/27/2024 [facility] [...] drink first t anselmo in the morning (EYE-PAINT COATING MACHINE OPERATOR) to steady your nerves or to get rid of a hangover? 0 08/14/2024 CAGE Questionnaire Score 0 025 Utilities Answer Date Recorded In the past 12 months has th e electric, gas, oil, or water [employer] threatened to shut off services in your [...] Description 12/06/2024 11:20 AM EDT Office Visit [facility] Internal Medicine [address], [address]rd [place] [address] Alisa Kunz, DO [address] [facility] [address] [place] [address] 12/23/2024 4:00 PM EDT Office Visit [place] [facility] [address] [place] [address] Lavern Shoemaker MD 800 [place], [place] [address] 02/02/2025 8:40 AM EST Office Visit [facility] Internal Medicine [address], [address]rd [place] [address] Alisa Kunz, DO [address] [place] [address] 02/09/2025 12:20 PM EST Office Visit [facility] [address] [place] [address] Anne-Marie Kolb, ENVIRONMENTAL MANAGER 2[address] [facility] 125 [place] [address] documented as of this encounter Visit Diagnoses [...] documented as of this encounter Care Teams Ticket Sales Agent Relationship Specialty Start Date End Date Alisa Kunz DO [address] [place] [address] PCP - General Internal Medicine 03/13/21 Kodi Bustos DO [address] [place] [phone] Surgeon Cardiothoracic Surgery 11/06/22 Sujit Arriola MD [address] [place] [address] Consulting Physician Pulmonary Disease 11/06/22 Sujit Reyes MD [address] [place] [address] Referring Physician 12/04/22 Zee Lazar DO [address] [place] [address] Resident 09/08/24 documented as of this encounter
--- OUTSIDE RECORDS SUMMARY | 2024-11-09 10:31 | XMS_ITS | Encounter Summary ---
Author Organization Healthcare Address [address] [place] [address] Care Team Providers Care Commercial Leasing Agent Name Role Phone Alisa Kunz DO Primary Care Provider Kodi Bustos DO Unavailable [phone] Sujit Arriola MD Unavailable [phone] Sujit Reyes MD Unavailable [phone] Zee Lazar DO Unavailable [phone] Encounter Details Date Type Department Care Team (Late st Contact Info) Description 11/01/2024 Telephone [facility] Internal Medicine [address] [place] [address] Alisa Kunz DO [address] [place] [address] Social History Tobacco Use Types [...] Recorded Patient Health Questionnaire-2 Score 0 10/27/2024 [facility] [...] in the past 12 m [facility], were you homeless or [...] drink first t anselmo in the morning (EYE-WOMEN'S SWIM COACH) to steady your nerves or to get [...] Description 12/06/2024 11:20 AM EDT Office Visit [facility] Internal Medicine [address] [place] [address] Alisa Kunz DO [address] [place] [address] 12/23/2024 4:00 PM EDT Office Visit [place] [facility] [address] [place] [address] Lavern Shoemaker MD 800 [place] [address] 02/02/2025 8:40 AM EST Office Visit [facility] Internal Medicine [address] [place] [address] Alisa Kunz DO [address] [place] [address] 02/09/2025 12:20 PM EST Office Visit [facility] Endocrinology [address] [place] [address] Anne-Marie Kolb L, BLOOD BANK WORKER [address] [place] [address] documented as of this encounter [...] as of this encounter Care Teams Commercial Leasing Agent Relationship Specialty Start Date End Date Alisa Kunz DO [address] [place] [address] PCP - General Internal Medicine 03/13/21 Kodi Bustos DO [address] [address] Surgeon Cardiothoracic Surgery 11/06/22 Sujit Arriola MD [address] [place] [address] Consulting Physician Pulmonary Disease 11/06/22 Sujit Reyes MD [address] [place] [address] Referring Physician 12/04/22 Zee Lazar DO [address] [place] [address] Resident 09/08/24 documented as of this encounter
--- OUTSIDE RECORDS SUMMARY | 2024-11-09 10:32 | XMS_ITS | Clinical Summary ---
Author Organization [facility] Address [address] [place] [address] Care Team Providers Care Truck Shop Mechanic Name Role Phone Alisa Kunz DO Primary Care Provider Kodi Bustos DO Unavailable [phone] Sujit Arriola MD Unavailable [phone] Sujit Reyes MD Unavailable [phone] Zee Lazar DO Unavailable [phone] Allergies Active Allergy Reactions Criticality Noted Date [...] penIndications:T ype 1 diabetes mellitus with hyperglycemia ([facility]) Inject 2-6 units before meals plus 1:60>150. Max tdd 30 units 30 mL 2 Active insulin glargine (Toujeo SoloStar) 300 UNIT/ML injection pen (1 UNIT DIAL)Indications :Type 1 diabetes mellitus with hyperglycemia ([facility]) Inject 14 Units under the skin every morning. 4.5 mL 3 025 2025 Active Probiotic Product (acidophilus probiotic blend) capsule Take 1 capsule by mouth daily. Active mycophenolate (CellCept) 500 MG tabletIndication s:Systemic lupus erythematosus (SLE) in adult ([facility]) Take 2 tablets by mouth 2 times [...] tabletIndication s:Systemic lupus erythematosus (SLE) in adult ([facility]) Take [...] 1 diabetes mellitus with other specified complication ([facility]/HCC),Dyslip idemia Take 1 tablet by mouth [...] chest pain. 2024 Discontinued(P er Patient Report) Pitavastatin Calcium (Livalo) 4 MG tabletIndication s:Type [...] been switched to warfarin. Follows with the [facility] anti-coagulation clinic closely. Coronary atherosclerosis of artery [...] From the hospital she was sent to [facility] for rehab. - Slowly improving, now [...] From the hospital she was sent to [facility] for rehab. - Slowly improving, now [...] From the hospital she was sent to [facility] for rehab. - Slowly improving: still [...] baclofen to help with muscle spasms/sleep at [facility]: switched to Robaxin 500 mg nightly [...] From the hospital she was sent to [facility] for rehab. - Slowly improving: still [...] baclofen to help with muscle spasms/sleep at [facility]: switched to Robaxin 500 mg nightly [...] From the hospital she was sent to [facility] for rehab. - Encouraged patient to contact surgeon (Dr. Ortiz) to discuss next steps and to discuss prognosis. Diastolic dysfunction 07/17/2021 Overview (01/05/2024): - Echocardiogram 11/27/2023: LVEF 55-60% with grade II diastolic dysfunction. Assessment & Plan (08/12/2023 2:51 PM EDT): HFpEF (EF 55-60% in 08/2022) CAD/ND s/p Stent + CABG (1999) CVA (2018) A-Fib (Eliquis) -Continue home apixaban, aspirin, losartan, [...] 12/05/2020, 01/28/2022, 01/09/2023 Influenza, seasonal, injectable 12/08/2018 [employer] COVID-19 Vaccine (Purple Cap) 12+ 03/30/2020, 03/30/2020, [...] 12/2023. Colon cancer: Last colonoscopy 10/17/2020 at [facility] (Dr. Sujit Christine), personally visualized records: one [...] 12/05/2020, 01/28/2022, 01/09/2023 Influenza, seasonal, injectable 12/08/2018 [employer] COVID-19 Vaccine (Purple Cap) 12+ 03/30/2020, 03/30/2020, [...] ? Colon cancer: Last colonoscopy 10/17/2020 at [facility] (Dr. Sujit Christine), personally visualized records: one [...] 12/05/2020, 12/05/2020, 01/28/2022 Influenza, seasonal, injectable 12/08/2018 [employer] COVID-19 Vaccine (Purple Cap) 12+ 03/30/2020, 03/30/2020, [...] ? Colon cancer: Last colonoscopy 10/17/2020 at [facility] (Dr. Sujit Christine), personally visualized records: one [...] - Was switched to Trelegy inhaler at [facility], refilled today 07/2021. Continues on O2 [...] Paroxysmal atrial fibrillation 08/08/2017 Overview (04/16/2024): - [id number] of 6. - s/p PPM - Rate control: metoprolol ER 50 mg daily - Anticoagulation: warfarin - Follows with [facility] cardiology. Hypertension 12/26/2016 Overview (12/26/2022): - [...] patient to discuss insulin adjustments while at [facility]. Assessment & Plan (04/09/2021 4:01 PM [...] bg control Atherosclerotic heart diseas e of [place] coronary artery without angina pectoris 05/05/2012 Overview (04/16/2024): - s/p CABG in 1999. NSTEMI s/p balloon angioplasty 05/2020 at [facility]. Follows with outside call manager. Assessment & Plan (11/24/2020 8:49 AM EDT): [...] been having telephone conversations with cardiology at [facility] and is currently taking 20mg lasix and 2.5mg of norvasc -ISTAT sodium level 135 -Patient is going to make an appointment with cardiology within a month to follow up for labs and assess if there is a need for fluid restriction -Patient aware of all upcoming appointments [facility] 05/16/20222022 Red eye 05/13/2022 12/26/2022 Overview (05/13/2022): - Concerning for bacterial or viral conjunctivitis vs. Scleritis. - Needs THOMPSON eye exam. - Was able to get patient in with [facility] ophthalmology right after our clinic appointment (where she follows regularly). - In the meantime, provided erythromycin eye ointment for bacterial conjunctivitis treatment. Assessment & Plan (05/13/2022 3:58 PM EST): - Concerning for bacterial or viral conjunctivitis vs. Scleritis. - Needs THOMPSON eye exam. - Was able to get patient in with [facility] [...] bowel regimen. - Last colonoscopy performed at [facility] in Oct 2020 and unremarkable. Assessment & Plan (02/06/2022 2:48 PM EST): - Based on description more consistent with constipation. Some improvement with bowel regimen. - Last colonoscopy performed at [facility] in Oct 2020 and unremarkable. Anal fissure [...] organization. Date Type Department Care Team Description 11/05/2024 Telephone [facility] [address], [address] [place] [address] Alisa Kunz, DO 11/02/2024 Telephone [facility] [address], [address]rd [place] [address] Alisa Kunz, DO HCN Lab/home Health 11/01/2024 Orders Only [facility] [address], [address]rd [place] [address] Alisa Kunz, DO 11/01/2024 Telephone [facility] [address], [address]rd [place] [address] Alisa Kunz, DO 10/27/2024 1:40 PM EDT Office Visit [facility] Endocrinology [address] [place] [address] Anne-Marie Kolb L, STARBUCKS CLERK Type 1 diabetes mellitus with other specified complication ([facility]) (Primary Dx); Neuropathy; Hyperlipidemia, unspecified hyperlipidemia type; Dyslipidemia 10/27/2024 Travel 10/18/2024 Refill [facility] [address], [address] [place] [address] Alisa Kunz, DO 10/18/2024 Telephone [facility] [address], [address] [place] [address] Alisa Kunz L, DO 10/18/2024 Travel 10/14/2024 12:09 PM EDT - 10/14/2024 11:59 PM EDT Hospital Encounter [facility] [address], [address]st [place] [address] Recurrent pleural effusion on left Discharge Disposition: Home or Self Care 10/14/2024 11:00 AM EDT Office Visit [facility] [address], [address]nd [place] [address] Cristian Zimmer MD Recurrent pleural effusion on left (Primary Dx); Chronic hypoxic respiratory failure; Obstructive lung disease ([facility]); Systemic lupus erythematosus (SLE) in adult ([facility]) 10/14/2024 Results Follow-Up [facility] [address], [address]nd [place] [address] Cristian Zimmer MD 10/14/2024 Travel 10/11/2024 Telephone [facility] [address], [address]rd [place] [address] Chris Pepe MD HCN - Patient Message (questions) 10/07/2024 12:50 PM EDT Office Visit [facility] [address], [address] [place] [address] Chris Pepe MD Recurrent aphthous ulcer (Primary Dx); Systemic lupus erythematosus, unspecified SLE type, unspecified organ involvement status ([facility]) 10/07/2024 Travel 10/05/2024 Refill [facility] [address], [address] [place] [address] Alisa Kunz, 10/02/2024 Travel 09/28/2024 Telephone [facility] [address], [address] [place] [address] Alisa Kunz, DO HCN Lab/home Health 09/28/2024 Telephone [facility] Diabetes Education [address] [place] [address] Anne-Marie Kolb, STARBUCKS CLERK 09/28/2024 Results Follow-Up [facility] [address] [place] [address] Dinah Ramirez, STARBUCKS CLERK 09/27/2024 1:20 PM EDT Office Visit [facility] [address] [place] [address] Dinah Ramirez R, STARBUCKS CLERK Pleural effusion (Primary Dx); Longstanding persistent atrial fibrillation (CMS/HCC); Dizziness and giddiness; Health care maintenance 09/27/2024 Travel 09/23/2024 Telephone [facility] [address], [address] [place] [address] Alisa Kunz, HCN - Patient Message 09/22/2024 Patient Outreach POPULATION [address], [address] [place] [address] Patricia Yañez LPN Follow-up 09/20/2024 Telephone [facility] Endocrinology [address] [place] [address] Anne-Marie Kolb, YAMILET 09/17/2024 Orders Only [facility] [address], [address] [place] [address] Alisa Kunz, DO 09/17/2024 Patient Outreach [address], [address] [place] [address] Patricia Yañez LPN TCM Call 09/16/2024 Telephone [facility] [address], [address] [place] [address] Alisa Kunz, DO 09/16/2024 Telephone [facility] [address], [address] [place] [address] Alisa Kunz, DO HCN Clinical Concern/Question (Low heartrate) 09/16/2024 Telephone [facility] [address], [address]nd [place] [address] Charo Donaldson 09/16/2024 Telephone [facility] Endocrinology [address] [place] [address] Anne-Marie Kolb, STARBUCKS CLERK Med Refill 09/15/2024 Travel 09/14/2024 Travel 09/13/2024 Travel 09/11/2024 Travel 09/09/2024 Travel 09/09/2024 Telephone [facility] [address], [address]nd [place] [address] Shannen Emmanuel RN 09/09/2024 Telephone [facility] [address], [address]nd [place] [address] Charo Donaldson 09/09/2024 Results Follow-Up [facility] [address], [address]rd [place] [address] Zee Lazar DO 09/08/2024 1:55 PM EDT - 09/08/2024 11:59 PM EDT Hospital Encounter [facility] [address] [place] [address] Localized swelling, mass and lump, left upper limb Discharge Disposition: Home or Self Care 09/08/2024 1:36 PM EDT - 09/08/2024 1:54 PM EDT Hospital Encounter [facility] [address], 1st [place] [address] Shortness of breath Discharge Disposition: Home or Self Care 09/08/2024 11:20 AM EDT Office Visit [facility] [address], [address]rd [place] [address] Alisa Kunz DO Shortness of breath (Primary Dx); Restless leg syndrome; Localized swelling, mass and lump, left upper limb; Sore throat; Encounter for removal of sutures 09/08/2024 Orders Only [facility] [address], [address]nd [place] [address] Lavern Shoemaker MD Pleural effusion on right (Primary Dx) 09/08/2024 Telephone [facility] [address], [address]rd [place] [address] Alisa Kunz DO HCN - Patient Message 09/08/2024 Travel 09/07/2024 Telephone [facility] [address], [address]nd [place] [address] Sadiq Osborne MBBS 09/07/2024 Telephone [facility] [address], [address]nd [place] [address] Charo Donaldson 09/06/2024 Telephone [facility] [address], [address]rd [place] [address] ZeNitin willettista L, DO 09/06/2024 Telephone [facility] [address], [address]nd [place] [address] Charo Donaldson 09/06/2024 Refill [facility] Endocrinology [address] [place] [address] Carl Kolblett L, STARBUCKS CLERK Type 1 diabetes mellitus with other specified complication (CMS/HCC); Dyslipidemia 09/06/2024 Refill [facility] Endocrinology [address] [place] [address] CortesCarl houstonAnne-Marie L, STARBUCKS CLERK Type 1 diabetes mellitus with other specified complication (CMS/HCC); Dyslipidemia 09/03/2024 Telephone [facility] [address], [address]rd [place] [address] Ze Alisa L, DO HCN Clinical Concern/Question (Please see note...) 09/03/2024 Telephone [facility] Endocrinology [address] [place] [address] CortesCarlAnne-Marie L, STARBUCKS CLERK 09/02/2024 Telephone [facility] [address], [address] [place] [address] Ze Alisa L, DO 09/02/2024 Telephone [facility]ocr[facility] [address] [place] [address] Cortes Anne-Marie L, STARBUCKS CLERK 08/31/2024 Orders Only [facility] [address], [address]rd [place] [address] Alisa Kunz, DO At high risk for falls (Primary Dx); Type 2 diabetes mellitus without complication, with long-term current use of insulin; Compression fracture of T12 vertebra with routine healing, subsequent encounter; Osteoarthritis, unspecified osteoarthritis type, unspecified site; Pleural effusion 08/30/2024 Telephone [facility] [address], [address]rd [place] [address] Alisa Kunz, DO HCN Clinical Concern/Question 08/30/2024 Telephone [facility] [address], [address]rd [place] [address] Alisa Kunz, DO HCN Clinical Concern/Question 08/27/2024 Telephone [facility] Endocrinology [address] [place] [address] Katerine Donaldson 08/27/2024 Refill [facility] [address], [address]nd [place] [address] Ruthie Moy MD Systemic lupus erythematosus (SLE) in adult ([facility]) 08/27/2024 Telephone [facility] [address], [address]nd [place] [address] Sarah Hernadez RN 08/25/2024 Patient Outreach [facility] [address] [facility], [address] [place] [address] Patricia Yañez LPN TCM Call 08/25/2024 Telephone [facility] [address], [address]rd [place] [address] Alisa Kunz, DO HCN Clinical Concern/Question 08/25/2024 Telephone [facility] [address], [address]nd [place] [address] Noris Yee MD 08/25/2024 Refill [facility] [address], [address]nd [place] [address] Noris Yee MD Systemic lupus erythematosus (SLE) in adult ([facility]) 08/23/2024 Travel 08/22/2024 Travel 08/21/2024 Travel 08/20/2024 Travel 08/19/2024 Travel 08/18/2024 12:57 PM EDT - 08/18/2024 1:42 PM EDT Surgery Cardiac Public Speaker [address] [place] [address] Brenden Zamora MD Right heart catheterization 08/18/2024 Travel 08/17/2024 Travel 08/16/2024 Patient Outreach [facility] [address], [address] [place] [address] DaliaEkaterina rincon Sarah Carson 08/15/2024 Travel 08/15/2024 Refill [facility] [address], [address] [place] [address] Alisa Kunz, DO 08/14/2024 3:16 PM EDT - 08/24/2024 3:19 PM EDT Hospital Encounter [facility] [address] [place] [address] Jackson Puente MD Arndt, MD Flaca Theodore John B, MD Chadha, MD Kenneth Pleural effusion (Primary Dx); Acute on chronic congestive heart failure, unspecified heart failure type ([facility]); Shortness of breath; Systemic lupus erythematosus (SLE) in adult ([facility]) Discharge Disposition: Home or Self Care 08/14/2024 Travel 08/12/2024 Telephone [facility] [address], [address]rd [place] [address] Alisa Kunz, DO HCN Clinical Concern/Question 08/11/2024 Telephone [facility] [address], [address] [place] [address] Alisa Kunz, DO HCN Clinical Concern/Question 08/09/2024 Telephone [facility] [address], [address] [place] [address] Cassius Gonzales MD HCN Clinical Concern/Question from Last 3 Months Immunizations Immunization Administration Dates Next Due Hep A, Adult 01/24/2019, 9,01/24/2019,01/23,01/23/2019,06/11/2018,06/11/2018 ,06/11/2018 Influenza, High-dose, Split Virus, Trivalent, Injectable, preservative free 11/27/2023,01/18/2019,12/19/2017 Influenza, Unspecified 12/09/2019 Influenza, high-dose, quadrivalent 01/09,01/28/2022,12/05/2020,12/05,12/05/2020,01/18/2019,01/18/2019 ,01/18/2019,01/18/2019,12/19/2017,12/08,12/19/2017 Influenza, seasonal, injectable 12/08/2018 [employer] COVID-19 Vac cine (Purple Cap) 12+ 04/22/2020,04/22/2020,03/30/2020,03/30 Pneumococcal Conjugate PCV 13 08/06/2019 ,08/06/2019,08/06/2019,07/02,07/02/2016,07/02/2016 Pneumococcal Polysaccharide PPV23 2019,06/11/2018,06/11/2018,06/11 Zoster, Recombinant 01/24/2019, 9,01/24/2019,01/23,01/23/2019,06/11/2018,06/11/2018 ,06/11/2018 Family History Medical History Relation Name Comments Alcohol abuse Father Doron E Alfredito Arthritis Father Doron E Alfredito COPD Father Doron E Alfredito Hypercholesterolemia Father Doron E Alfredito Obesity Father Doron E Alfredito Alpha-1 antitrypsin deficiency Mother m ildred stamper alfredito kelin COPD Mother gracy stamper alfredito kelin Conversions - Other Mother gracy stam per alfredito [place] Goiter (Diffuse Nontoxic) Heart disease Mother gracy otf [place] Hypertension Mother gracy otf [place] Stroke Mother gracy otf [place] Cancer Other 1 Doron Antunez Conversions - Other Other 2 Goiter ( Diffuse Nontoxic) Heart disease Other 3 Gracy Marry [place] Diabetes Sibling Relation Name Status Comments Father oDron Antunez Mother gracy otf [place] Other 1 Doron Henriquezer Other 2 Other 3 Gracy Marry Neville Sibling Social History Tobacco Use Types Packs/Day [...] Recorded Patient Health Questionnaire-2 Score 0 10/27/2024 [facility] - Occupational Stress [...] drink first t anselmo in the morning (EYE-FACE AND FILL PACKER) to steady your nerves or to get rid of a hangover? 0 08/14/2024 CAGE Questionnaire Score 0 025 Utilities Answer Date Recorded In the past 12 months has th [employer], gas, oil, or water [employer] threatened to shut off services in your [...] Visit [facility] [address], [address]rd [place] [address] Alisa Kunz, DO [address] [place] [address] 12/23/2024 4:00 PM EDT Office Visit [facility] [address], [address]nd [place] [address] Lavern Shoemaker MD [address] [place], [place] [id number] 02/02/2025 8:40 AM EST Office Visit [facility] [address], [address]rd [place] [address] Alisa Kunz, DO [address] [place] [address] 02/09/2025 12:20 PM EST Office Visit [facility] [address] [place] [address] Anne-Marie Kolb L, STARBUCKS CLERK [address] [facility] [address] [place] [address] Health Maintenance Due Date Last Done Comments [facility]-/Child/Adol SDOH Screenings 1950 Diabetes: Dental Exam 1961 [facility]-DTaP,Tdap,and Td Vaccines (1 - Tdap) 1970 CT Colonography 02/09/1996 Colonoscopy 02/09/1996 FIT-DNA 02/09/1996 FIT 02/09/1996 FOBT 02/09/1996 Sigmoidoscopy 02/09/1996 [facility]-RSV Vaccine: 60+ Years or (1 - Risk 60-74 years 1-dose series) 2011 [id number] Vaccine ( season) 2023 04/22/2020, 04/22/2020, 03/30/2020, Additional history exists [facility]-Breast Cancer Screening 11/10/2023 090 04/2021, 11/09/2021, 01/25/2020, Additional history exists [facility]-Medicare Annual [...] this topic Medical Devices Implanted Type Area Tax Map Technician Device Identifier Shelf Expiration Date Model / Serial / Lot Tendril Lead- 9 Implanted: by Naveen Velasquez (Quantity not on file) [facility] TENDRIL STS 8TC/46 / [id number] / Tendril Lead- 9 Implanted: by Naveen Velasquez (Quantity not on file) Lead [facility] [employer] 2087TC/52 / [id number] / Blank Pacemaker-08/08 Implanted: by Naveen Velasquez (Quantity not on file) Pacemaker [facility] ASSURITY MRI 2272 / [id number] / Procedures Procedure Name Priority Date/Time Associated [...] Routine 09/11/2024 1:22 PM EDT Pleural effusion MI THORACENTESIS NEEDLE/CATH PLEURA W/IMAGING Routine 09/11/2024 1:22 [...] ND INR 2.5 to 3.5 June Ashley STARBUCKS CLERK LAB BLOOD ORDERABLES Final Result [facility] [address] [place] [address] * (ABNORMAL) CBC and differential (09/27/2024 2:29 [...] Final Result [facility] [address] [place] [address] * (ABNORMAL) Comprehensive metabolic panel (09/27/2024 2:29 [...] Final Result [facility] [address] [place] [address] * (ABNORMAL) POCT glucose meter (09/15/2024 12:18 PM EDT) Only the most recent of91 resultswithin the time period is included. POCT Glucose 324(H) 74 - 99 mg/dL 09/15/2024 12:21 PM EDT [facility] Comment:Accuracy of a glucos e [...] Comment 09/15/2024 12:21 PM EDT [facility] Plant Operations Vice President ID Renetta Junior 09/15/2024 12:21 PM EDT HEALTH[facility]ARE LAB Device ID [id number] 09/15/2024 12:21 PM EDT [facility] LAB Specimen Type POC Capillary 09/15/2024 12:21 PM EDT [facility] Blood Capillary blood specimen / Unknown 09/15/2024 12:18 PM EDT 09/15/2024 12:21 PM EDT us Alex Mg MD LAB POINT OF CARE TE ST DOCKED DEVICE UNSOLICITED RESULTS Final Result Performing Organization Address City/[facility]/ZIP Co de Phone Number HEALTHCARE LAB [address] [place] [address] * (ABNORMAL) MOON Single Pattern (Reflex only) (09/15/2024 9:21 AM EDT) Pathologist [facility] MOON Pattern Homogeneou s(A) 09/20/2024 10:53 PM EDT [facility] ([facility]) MOON Titer 1:160(A) 09/20/2024 10:53 PM EDT [facility] ([facility]) Blood Venous blood specimen / Unknown Venipuncture / Unknown 09/15/2024 9:21 AM EDT 09/15/2024 9:39 AM EDT Narrative [facility] ([facility]) - 09/20/2024 10:53 PM EDT Performed By: [facility] [address] [place] [address] Bucket Hooker: Austin Bernal MD, PhD CLIA Number: [id number] us Fernando Valenzuela MD LAB BLOOD ORDERABLES Final Resu lt [facility] ([facility]) [address] [place] [id number] * (ABNORMAL) CBC W/O Differential (09/15/2024 9:21 AM EDT) Only the most recent of6 resultswithin the time period is included. Pathologist [facility] WBC Count 5.81 3.70 - 10.30 10*3/uL LAB HEMATOLOGY METHOD 09/15/2024 9:42 AM EDT [facility] RBC Count 3.68(L) 3.90 - 5.20 10*6/uL LAB HEMATOLOGY METHOD 09/15/2024 9:42 AM EDT [facility] HGB 10.8(L) 11.2 - 15.7 g/dL LAB HEMATOLOGY METHOD 09/15/2024 9:42 AM EDT [facility] HCT 34.3 34.0 - 45.0 % LAB HEMATOLOGY METHOD 09/15/2024 9:42 AM EDT [facility] Platelet Count 334 155 - 369 10*3/uL LAB HEMATOLOGY METHOD 09/15/2024 9:42 AM EDT [facility] MCV 93 [phone] - 98 fL LAB HEMATOLOGY METHOD 09/15/2024 9:42 AM EDT [facility] MCH 29.3 26.0 - 32.0 pg LAB HEMATOLOGY METHOD 09/15/2024 9:42 AM EDT [facility] MCHC 31.5 30.7 - 35.5 g/dL LAB HEMATOLOGY METHOD 09/15/2024 9:42 AM EDT [facility] RDW 15.2(H) 11.5 - 14.5 % LAB HEMATOLOGY METHOD 09/15/2024 9:42 AM EDT [facility] MPV 9.0 8.8 - 12.5 fL LAB HEMATOLOGY METHOD 09/15/2024 9:42 AM EDT [facility] nRBC 0.0 <=0.0 per 100 WBCs LAB HEMATOLOGY METHOD 09/15/2024 9:42 AM EDT [facility] Blood Venous blood specimen / Unknown Venipuncture / Unknown 09/15/2024 9:21 AM EDT 09/15/2024 9:39 AM EDT us Alex Mg MD LAB BLOOD ORDERABLES Final R esult [facility] [address] [place] [address] * (ABNORMAL) Antinuclear Antibody (MOON) with HEp-2 Substrate, IgG by IFA (09/15/2024 9:21 AM EDT) Pathologist [facility] MOON INTERPRETIVE COMMENT See Note 09/20/2024 10:53 PM EDT [facility] ([facility]) Anti Nuc Ab Screen Detected( H) <1:80 09/20/2024 10:53 PM EDT [facility] ([facility]) Blood Venous blood specimen / Unknown Venipuncture / Unknown 09/15/2024 9:21 AM EDT 09/15/2024 9:39 AM EDT Narrative [facility] ([place]) - 09/20/2024 10:53 PM EDT Homogeneous Pattern [...] not necessarily rule out SARD. Performed By: [facility] [address] [place], [place] [id number] Bucket Hooker: Austin Bernal MD, PhD CLIA Number: [id number] Fernando Valenzuela MD LAB BLOOD ORDERABLES Final Resu lt Performing Organization Address [facility] Co de Phone Number [facility] ([place]) [address] [place] [address] * (ABNORMAL) Magnesium, Plasma (09/15/2024 9:21 AM EDT) Only the most recent of12 resultswithin the time period is included. Pathologist [facility] Magnesium, Plasma 1.7(L) 1.9 - 2.4 mg/dL 09/15/2024 10:03 AM EDT [facility] Blood Venous blood specimen / Unknown Venipuncture / Unknown 09/15/2024 9:21 AM EDT 09/15/2024 9:39 AM EDT Fernando Valenzuela MD LAB BLOOD ORDERABLES Final Resu lt Performing Organization Address [facility] Co de Phone Number [facility] [address] [place] [address] * (ABNORMAL) Lactate dehydrogenase (09/15/2024 9:21 AM EDT) Only the most recent of2 resultswithin the time period is included. Pathologist [facility] LDH, Plasma 396(H) 116 - 250 U/L 09/15/2024 10:03 AM EDT [facility] Blood Venous blood specimen / Unknown Venipuncture / Unknown 09/15/2024 9:21 AM EDT 09/15/2024 9:39 AM EDT Alex Mg MD LAB BLOOD ORDERABLES Final R esult Performing Organization Address [facility] Co de Phone Number [facility] [address] [place] [address] * (ABNORMAL) Basic Metabolic Panel, Plasma (09/15/2024 9:21 AM EDT) Only the most recent of15 resultswithin the time period is included. Glucose, Plasma 206(H) 74 - 99 mg/dL 09/15/2024 10:03 AM EDT [facility] BUN, Plasma 16 8 - 23 mg/dL 09/15/2024 10:03 AM EDT [facility] Creatinine, Plasma 0.89 0.60 - 1.10 mg/dL 09/15/2024 10:03 AM EDT [facility] BUN/Creatinine Ratio 18 09/15/2024 10:03 AM EDT [facility] Sodium, Plasma 129(L) 136 - 145 mmol/L 09/15/2024 10:03 AM EDT [facility] Potassium, Plasma 4.4 3.6 - 4.9 mmol/L 09/15/2024 10:03 AM EDT [facility] Chloride, Plasma 90(L) 97 - 107 mmol/L 09/15/2024 10:03 AM EDT [facility] CO2, Plasma 29 22 - 29 mmol/L 09/15/2024 10:03 AM EDT [facility] Anion Gap 10 6 - 16 mmol/L 09/15/2024 10:03 AM EDT [facility] Total Calcium, Plasma 8.6(L) 8.9 - 10.2 mg/dL 09/15/2024 10:03 AM EDT [facility] eGFRcr 68.6 mL/min/1.7 3m*2 09/15/2024 10:03 AM EDT [facility] Comment:Reported eGFRcr in m L/min/1.73m2 is based the CKD-EPI 2020 equation that does not use a race coefficient. Blood Venous blood specimen / Unknown Venipuncture / Unknown 09/15/2024 9:21 AM EDT 09/15/2024 9:39 AM EDT us Fernando Valenzuela MD LAB BLOOD ORDERABLES Final Resu lt [facility] [address] [place] [address] * MR Hand Left w and wo [...] multiecho sequences were obtained utilizing T1 and [id number] with and without the administration of intravenous [...] on 09/14/2024 3:53 PM Fernando Valenzuela MD [facility] MRI PROCEDURES Final Result * (ABNORMAL) Sedimentation Rate, Automated (09/13/2024 9:29 PM EDT) Only the most recent of2 resultswithin the time period is included. Sedimentation Rate 49(H) <30 mm/hr 2024 9:47 PM EDT [facility] Blood Venous blood specimen / Unknown Venipuncture / Unknown 09/13/2024 9:29 PM EDT 09/13/2024 9:32 PM EDT Pallavi Paul DO LAB BLOOD ORDERABLES Final Resu lt [facility] [address] [place] [address] * ECHO, ADULT TRANSTHORACIC LIMITED W/ CONTRAST [...] resultswithin the time period is included. Pathologist [facility] CRP, Plasma 26.0(H) <=8.0 mg/L 09/13/2024 11:21 AM EDT [facility] Blood Venous blood specimen / Unknown Venipuncture / Unknown 09/13/2024 10:00 AM EDT 09/13/2024 10:25 AM EDT [facility] - 09/13/2024 11:21 AM EDT This CRP test is appropriate for assessment of infection, systemic inflammation and/or tissue injury. To assess cardiovascular disease risk order high sensitivity CRP (CRPH). Pallavi Paul LAB BLOOD ORDERABLES Final Resu lt [facility] [address] [place] [address] * (ABNORMAL) Herpes Simplex Virus (HSV) by PCR (09/12/2024 3:52 PM EDT) [facility] Herpes Simplex Virus 1 (HSV-1) PCR Result Detected(A) Not Detected 09/13/2024 11:[address] [facility] Herpes Simplex Virus 2 (HSV-2) PCR Result Not Detected Not Detected 09/13/2024 11:[address] [facility] Swab Oral cavity structure / Unknown [...] diagnosis or treatment of the patient. us Hirotaka Nicolas MD LAB MICROBIOLOGY - GENERAL ORDSofiya EWBBER Final Result Performing Organization Address City/[facility]/ZIP Co de Phone Number [facility] [address] [place] [address] * Quantiferon TB Gold (09/12/2024 3:50 PM EDT) Quantiferon TB Gold Plus Result Negative Negative 09/13/2024 5:06 PM EDT [facility] TB Nill Value 0.120 IU/mL 09/13/2024 5:06 PM EDT [facility] TB Antigen 1 -0.0285 IU/mL 09/13/2024 5:06 PM EDT [facility] TB Antigen 2 -0.024 IU/mL 09/13/2024 5:06 PM EDT [facility] TB Mitogen 3.39 IU/mL 09/13/2024 5:06 PM EDT [facility] Blood [...] ORDERABLES Final Resu lt Performing Organization Address [facility]/ZIP Co de Phone Number [facility] [address] [place] [address] * Gold Top (09/12/2024 2:43 PM EDT) Extra Hold for add-ons 09/12/2024 6:01 PM EDT [facility] Comment:Auto resulted. Blood Venous blood specimen / Unknown Venipuncture / Unknown 09/12/2024 2:43 PM EDT 09/12/2024 3:16 PM EDT us Fernando Valenzuela MD LAB BLOOD ORDERABLES Final Resu lt [facility] [address] [place] [address] * Proctor Top (09/12/2024 2:43 PM EDT) Extra Hold for add-ons 09/12/2024 6:01 PM EDT [facility] Comment:Auto resulted. Blood Venous blood specimen / Unknown Venipuncture / Unknown 09/12/2024 2:43 PM EDT 09/12/2024 3:16 PM EDT us Fernando Valenzuela MD LAB BLOOD ORDERABLES Final Resu lt Performing Organization Address [facility] Co de Phone Number [facility] [address] [place] [address] * Lavender Top (09/12/2024 2:43 PM EDT) Only the most recent of3 resultswithin the time period is included. Extra Hold for add-ons 09/12/2024 6:01 PM EDT [facility] Comment:Auto resulted. Blood Venous blood specimen / Unknown Venipuncture / Unknown 09/12/2024 2:43 PM EDT 09/12/2024 3:16 PM EDT us Fernando Valenzuela MD LAB BLOOD ORDERABLES Final Resu lt Performing Organization Address [facility] de Phone Number [facility] [address] [place] [address] * Light Green Top (09/12/2024 2:43 PM EDT) Extra Hold for add-ons 09/12/2024 6:01 PM EDT [facility] Comment:Auto resulted. Blood Venous blood specimen / Unknown Venipuncture / Unknown 09/12/2024 2:43 PM EDT 09/12/2024 3:16 PM EDT us Fernando Valenzuela MD LAB BLOOD ORDERABLES Final Resu lt Performing Organization Address [facility] Co de Phone Number [facility] [address] [place] [address] * Blood Culture (Aerobic/Anaerobet Set) (09/11/2024 5:55 PM EDT) Culture No growth at day 5 09/16/2024 8:01 PM EDT [facility] Blood Venous blood specimen / Unknown Venipuncture / Unknown 09/11/2024 5:55 PM EDT 09/11/2024 6:35 PM EDT Fernando Valenzuela MD LAB MICROBIOLOGY - GENERAL ORDE RABLES Final Result Performing Organization Address City/[facility]/ZIP Co de Phone Number [facility] [address] [place] [address] * Fungal Culture, Sterile Body Fluid (NOT CSF) and JAS (09/11/2024 3:35 PM EDT) Culture No Fungal Growth at 3 Weeks 10/12/2024 6:39 AM EDT [facility] JAS No fungal elements seen 10/12/2024 6:[address] [facility] Pleural Fluid Specimen from pleura obtained by thoracentesis / Unknown Non-blood Collection / Unknown 09/11/2024 3:35 PM EDT 09/11/2024 3:35 PM EDT us Fernando Valenzuela MD LAB MICROBIOLOGY - GENERAL ORDE RABLES Final Result Performing Organization Address City/[facility] [place] [address] * AFB Culture and Acid Fast Stain - Pleural Right (09/11/2024 3:35 PM EDT) Only the most recent of2 resultswithin the time period is included. AFB Culture No Mycobacterial Growth at 6 Weeks 10/25/2024 4:55 AM EDT [facility] Acid Fast Stain No acid fast bacilli seen 10/25/2024 4:55 AM EDT [facility] Pleural Fluid Specimen from pleura obtained by thoracentesis / Unknown Non-blood Collection / Unknown 09/11/2024 3:35 PM EDT 09/11/2024 3:35 PM EDT Fernando Valenzuela MD LAB MICROBIOLOGY - GENERAL ORDE RABLES Final Result Performing Organization Address [facility] Co de Phone Number [facility] [address] [place] [address] * Body Fluid Culture and Gram Stain [...] ORDE RABLES Final Result Performing Organization Address [facility] [place] [address] * XR Chest 1 View (09/11/2024 1:45 [...] IMG XR PROCEDURES Final Res ult * MI THORACENTESIS NEEDLE/CATH PLEURA W/IMAGING, HC THORACENTESIS NEEDLE/CATH [...] infection and pneumothorax Alternatives discussed: No treatment Rome protocol: Procedure explained and questions answered to [...] midscapular line Intercostal space: 6th Puncture method: [id number] catheter Ultrasound guidance: yes Indwelling catheter: Removed [...] LAB HEMATOLOGY METHOD 09/11/2024 2:07 PM EDT [facility] Appearance, Body fluid Cloudy(A) LAB HEMATOLOGY METHOD 09/11/2024 2:07 PM EDT [facility] Volume, Body fluid 5.0 cc LAB HEMATOLOGY METHOD 09/11/2024 2:07 PM EDT [facility] Fluid Container Tube 3 LAB HEMATOLOGY METHOD 09/11/2024 2:07 PM EDT [facility] Red Blood Cell Count, Body fluid 1,959 uL LAB HEMATOLOGY METHOD 09/11/2024 2:07 PM EDT [facility] Comment:Test performed by nika sanders method. Total Nucleated Cell Count, Body fluid 243 uL LAB HEMATOLOGY METHOD 09/11/2024 2:07 PM EDT [facility] Neutrophils %, Body fluid 20 % LAB HEMATOLOGY METHOD 09/11/2024 2:07 PM EDT [facility] Lymphocytes %, Body fluid 53 % LAB HEMATOLOGY METHOD 09/11/2024 2:07 PM EDT [facility] Monocytes/Macro phages %, Body fluid 23 % LAB HEMATOLOGY METHOD 09/11/2024 2:07 PM EDT [facility] Eosinophils %, Body fluid 0 % LAB HEMATOLOGY METHOD 09/11/2024 2:07 PM EDT [facility] Lining/Mesothel ial Cells %, Body fluid 4 % LAB HEMATOLOGY METHOD 09/11/2024 2:07 PM EDT [facility] Neutrophils Absolute (PMN), Body fluid 49 uL LAB HEMATOLOGY METHOD 09/11/2024 2:07 PM EDT [facility] Lymphocytes Absolute, Body fluid 129 uL LAB HEMATOLOGY METHOD 09/11/2024 2:07 PM EDT [facility] Monocytes/Macro phages Absolute, Body fluid 56 uL LAB HEMATOLOGY METHOD 09/11/2024 2:07 PM EDT [facility] Eosinophils Absolute, Body fluid 0 uL LAB HEMATOLOGY METHOD 09/11/2024 2:07 PM EDT [facility] Basophils Absolute, Body fluid 0 uL LAB HEMATOLOGY METHOD 09/11/2024 2:07 PM EDT [facility] Lining/Mesothel ial Cells Absolute, Body fluid 10 uL LAB HEMATOLOGY METHOD 09/11/2024 2:07 PM EDT [facility] Comment, Body fluid None LAB HEMATOLOGY METHOD 09/11/2024 2:07 PM EDT [facility] Comment:This is an appended report. These results have been appended to a previously preliminary verified report. Basophils %, Body fluid 0 % LAB HEMATOLOGY METHOD 09/11/2024 2:07 PM EDT [facility] Body Fluid Structure of right pleural cavity / Unknown Non-blood Collection / Unknown 09/11/2024 1:13 PM EDT 09/11/2024 1:25 PM EDT Júnior Johnson DO LAB BODY FLUIDS AND STOOLS ORDERABLES NO SPECIMEN TYPE/SOURCE Final Result [facility] [address] [place] [address] * Body fluid, cytospin, pathologist interpretation (09/11/2024 1:13 PM EDT) Only the most recent of2 resultswithin the time period is included. Specimen Type Body Fluid LAB HEMATOLOGY METHOD 09/13/2024 11:14 AM EDT [facility] Specimen Source, Body Fluid Pleural, Right LAB HEMATOLOGY METHOD 09/13/2024 11:14 AM EDT [facility] Clinical Diagnosis, Body Fluid Pleural effusion LAB HEMATOLOGY METHOD 09/13/2024 11:14 AM EDT [facility] Interpretation , Body Fluid Mixed inflammatory cells, no malignancy identified 09/13/2024 11:14 AM EDT [facility] Pathologist Signature, Body Fluid 09/13/2024 11:14 AM EDT [facility] Comment:Reviewed by: Simona Long MD LAB CP ASR DISCLAIMER No 09/13/2024 11:14 AM EDT [facility] Body Fluid Structure of right pleural cavity / Unknown Non-blood Collection / Unknown 09/11/2024 1:13 PM EDT 09/11/2024 1:25 PM EDT Júnior Johnson DO LAB BODY FLUIDS AND STOOLS ORDERABLES Final Result Performing Organization Address [facility] Co de Phone Number [facility] [address] [place] [address] * Total Protein, Pleural Fluid - Pleural [...] developed and its performance characteristics determined by [facility]. The U.S. Food and Drug Administration has not approved or cleared this test. However, FDA clearance or approval is not currently required for clinical use. The results are not intended to be used as the sole means for clinical diagnosis or patient management decisions. Fernando Valenzuela MD LAB BODY FLUIDS AND STOOLS ORDE LAWANDA Final Result Performing Organization Address [facility] de Phone Number [facility] [address] [place] [id number] * Lactate Dehydrogenase, Pleural Fluid - Right [...] the following criteria are present: (1) pleural enidl-wl-fhqpj protein ratio of >0.5, (2) pleural fpxkn-yf-fzkpp LDH ratio of >0.6, or (3) a pleural fluid LDH activity that is >2/3 the upper limit of a normal serum LDH activity. Light's criteria may misclassify ~25% of transudates as exudates in heart failure. These can be identified by calculating a xvnba-tx-lnlkgzu albumin gradient (>1.2 g/dL) and/or a bvjpd-fp-ojklc protein gradient (>3.1 g/dL). Júnior Johnson DO LAB BODY FLUIDS AND STOOLS ORDERABLES Final Result Performing Organization Address [facility] Co de Phone Number [address] [address] * complement C4 component in pleural fluid [...] - [facility] 10/29/2024 4:04 PM EDT [facility] Test Result SEE SCANNED REPORT 10/29/2024 4:04 PM EDT [facility] See Scanned Result SEE SCANNED REPORT 10/29/2024 4:04 PM EDT [facility] Body Fluid Non-blood Collection / Unknown 09/11/2024 1:12 PM EDT 09/12/2024 3:47 PM EDT us Fernando Valenzuela MD LAB REF LAB BLOOD AND FLUID ORD Final Result Performing Organization Address [facility]/ZIP Co de Phone Number [facility] [address] [place] [address] * Albumin - Pleural Right (09/11/2024 1:12 [...] developed and its performance characteristics determined by [facility]. The U.S. Food and Drug Administration has not approved or cleared this test; however, FDA clearance or approval is not currently required for clinical use. The results are not intended to be used as the sole means for clinical diagnosis or patient management decisions. Júnior Johnson DO LAB BODY FLUIDS AND STOOLS ORDERABLES Final Result [address] [address] * (ABNORMAL) pH, pleural fluid (09/11/2024 1:12 PM EDT) Only the most recent of2 resultswithin the time period is included. pH, Pleural Fluid 7.50(L) 7.60 - 7.66 LAB HEMATOLOGY METHOD 09/11/2024 1:30 PM EDT [facility] Pleural Fluid Pleural fluid specimen / Unknown Non-blood Collection / Unknown 09/11/2024 1:12 PM EDT 09/11/2024 1:22 PM EDT Narrative [facility] - 09/11/2024 1:30 PM EDT [...] and its performance characteristics determined by the [facility]. Pleural pH is [...] BODY FLUIDS AND STOOLS ORDERABLES Final Result [facility] [address] [place] [address] * Cytology - Pleural Right (09/11/2024 1:12 PM EDT) Only the most recent of2 resultswithin the time period is included. Case Report Cytology Case: [id number] Authorizing Provider: Fernando Valenzuela MD Collected: 09/11/2024 1312 Ordering Location: [facility] Inpatient Received: 09/13/2024 0937 Pathologist: Nelsy [...] Time: 45h 47m 09/14/2024 11:40 AM EDT [facility] Fluid Structure of right pleural cavity / Unknown 09/11/2024 1:12 PM EDT 09/13/2024 9:37 AM EDT us Fernando Valenzuela MD LAB CYTOLOGY ORDERABLES Final R esult [facility] [address] [place] [address] * Immunoglobulin G Subclasses (1, 2, 3, 4) (SO) (09/11/2024 9:24 AM EDT) IMMUNOGLOBULIN G SUBCLASS 1 1068 240 - 1118 mg/dL 09/14/2024 1:49 AM EDT [facility] ([facility]) IMMUNOGLOBULIN G SUBCLASS 2 316 124 - 549 mg/dL 09/14/2024 1:49 AM EDT [facility] ([facility]) IMMUNOGLOBULIN G SUBCLASS 3 91 21 - 134 mg/dL 09/14/2024 1:49 AM EDT [facility] ([facility]) IMMUNOGLOBULIN G SUBCLASS 4 22 1 - 123 mg/dL 09/14/2024 1:49 AM EDT [facility] ([facility]) Blood Venous blood specimen / Unknown Venipuncture / Unknown 09/11/2024 9:24 AM EDT 09/11/2024 9:30 AM EDT Narrative [facility] ([facility]) - 09/14/2024 1:49 AM EDT REFERENCE INTERVAL: Immunoglobulin G Subclass 1 The total IgG (mg/dL) can be derived from the sum of the subclass IgG1, IgG2, IgG3, and IgG4 values. However, a confirmatory and more precise total IgG is available by the turbidimetric method of quantitation for total IgG. Refer to test Immunoglobulin G, Serum ([id number]). Access complete set of age- and/or gender-specific reference intervals for this test in the [facility] ([employer]). REFERENCE INTERVAL: Immunoglobulin G Subclass 2 Access complete set of age- and/or gender-specific reference intervals for this test in the [facility] ([employer]). REFERENCE INTERVAL: Immunoglobulin G Subclass 3 Access complete set of age- and/or gender-specific reference intervals for this test in the [facility] ([employer]). REFERENCE INTERVAL: Immunoglobulin G Subclass 4 Access complete set of age- and/or gender-specific reference intervals for this test in the [facility] ([employer]). Performed By: [facility] [address] [place] [address] Bucket Hooker: Austin Bernal MD, PhD CLIA Number: [id number] us Fernando Valenzuela MD LAB REF LAB BLOOD AND FLUID ORD Final Result [facility]) [address] [place] [address] * ANCA Vasculitis Profile (09/11/2024 9:24 AM EDT) Myeloperoxidase (MPO) Ab, IgG 3 0 - 19 AU/mL 09/14/2024 3:07 PM EDT [facility] ([facility]) Serine Proteinase 3 (PR3) Ab, IgG 4 0 - 19 AU/mL 09/14/2024 3:07 PM EDT [facility] ([facility]) ANCA IFA Titer <1:20 <1:20 09/14/2024 3:07 PM EDT [facility] ([facility]) ANCA IFA Pattern None Detected None Detected 09/14/2024 3:07 PM EDT [facility] ([facility]) Blood Venous blood specimen / Unknown Venipuncture / Unknown 09/11/2024 9:24 AM EDT 09/11/2024 9:30 AM EDT Narrative [facility] ([facility] - 09/14/2024 3:07 PM EDT INTERPRETIVE [...] collagen vascular disease or arthritis. Performed By: [facility] [address] [place] [address] Bucket Hooker: Austin Bernal MD, PhD CLIA Number: [id number] Fernando Valenzuela MD LAB BLOOD ORDERABLES Final Resu lt Performing Organization Address [facility] Co de Phone Number [facility] ([facility]) [address] [place] [address] * Urinalysis Microscopic Examination (09/10/2024 1:16 PM EDT) Urine Urine specimen obtained by clean catch procedure / Unknown Non-blood Collection / Unknown 09/10/2024 1:16 PM EDT 09/10/2024 1:21 PM EDT Fernando Valenzuela MD LAB URINE ORDERABLES Final Resu lt Performing Organization Address [facility] de Phone Number [facility] [address] [place] [address] * Protein, Random, Urine with Creatinine (09/10/2024 1:16 PM EDT) Protein, Urine 26 mg/dL 09/10/2024 1:42 PM EDT [facility] Creatinine, Urine 12 mg/dL 09/10/2024 1:42 PM EDT [facility] Protein/Creati nine Ratio 2.2 mg/mg Creat 09/10/2024 1:42 PM EDT [facility] Urine Urine specimen obtained by clean catch procedure / Unknown Non-blood Collection / Unknown 09/10/2024 1:16 PM EDT 09/10/2024 1:21 PM EDT Fernando Valenzuela MD LAB URINE ORDERABLES Final Resu lt Performing Organization Address [facility] [place] Co de Phone Number [facility] [address] [place] [address] * (ABNORMAL) Urinalysis with reflex microscopic (Culture NOT Included) (09/10/2024 1:16 PM EDT) Color, Urine Yellow LAB URINALYSIS - AUTOMATED METHOD 09/10/2024 1:38 PM EDT [facility] Clarity, Urine Clear LAB URINALYSIS - AUTOMATED METHOD 09/10/2024 1:38 PM EDT [facility] Spec [place], Urine 1.009 1.005 - 1.030 LAB URINALYSIS - AUTOMATED METHOD 09/10/2024 1:38 PM EDT [facility] pH, Urine 6.0 5.0 - 8.0 LAB URINALYSIS - AUTOMATED METHOD 09/10/2024 1:38 PM EDT [facility] Protein, Urine 30(A) Negative mg/dL LAB URINALYSIS - AUTOMATED METHOD 09/10/2024 1:38 PM EDT [facility] Glucose, Urine 250(A) Negative mg/dL LAB URINALYSIS - AUTOMATED METHOD 09/10/2024 1:38 PM EDT [facility] Ketones, Urine Negative Negative mg/dL LAB URINALYSIS - AUTOMATED METHOD 09/10/2024 1:38 PM EDT [facility] Blood, Urine Small(A) Negative LAB URINALYSIS - AUTOMATED METHOD 09/10/2024 1:38 PM EDT [facility] Bilirubin, Urine Negative Negative LAB URINALYSIS - AUTOMATED METHOD 09/10/2024 1:38 PM EDT [facility] Urobilinogen, Urine 0.2 0.2 to 1.0 mg/dL LAB URINALYSIS - AUTOMATED METHOD 09/10/2024 1:38 PM EDT [facility] Leukocytes, Urine Trace(A) Negative LAB URINALYSIS - AUTOMATED METHOD 09/10/2024 1:38 PM EDT [facility] Nitrite, Urine Negative Negative LAB URINALYSIS - AUTOMATED METHOD 09/10/2024 1:38 PM EDT [facility] RBC, Urine 3 0 to 3 /HPF 09/10/2024 1:38 PM EDT [facility] Comment:This result was prev iously suppressed from the chart. WBC, Urine 0 - 5 0 to 5 /HPF 09/10/2024 1:38 PM EDT [facility] Comment:This result was prev iously suppressed from the chart. Squamous Epithelial Cells 0 - 2 0 to 5 /HPF 09/10/2024 1:38 PM EDT [facility] Comment:This result was prev iously suppressed from the chart. Hyaline Casts 0 - 2 0 to 5 /LPF 09/10/2024 1:38 PM EDT [facility] Comment:This result was prev iously suppressed from the chart. Bacteria, Urine Negative Negative 09/10/2024 1:38 PM EDT [facility] Comment:This result was prev iously suppressed from the chart. Urine Urine specimen obtained by clean catch procedure / Unknown Non-blood Collection / Unknown 09/10/2024 1:16 PM EDT 09/10/2024 1:21 PM EDT Narrative [facility] - 09/10/2024 1:38 PM EDT Performed by manual method us Fernando Valenzuela MD LAB URINE ORDERABLES Final Resu lt Performing Organization Address [facility] de Phone Number [facility] [address] [place] [address] * (ABNORMAL) IG Profile (09/10/2024 3:24 AM EDT) Pathologist [facility] IGA 137 75 - 400 mg/dL 09/11/2024 [...] Performing Organization Address City/[facility] Co de Phone Number [facility] [address] [place] [address] * Anti-DNA antibody, double-stranded (09/10/2024 3:24 AM EDT) Double-Strande d DNA (dsDNA) Ab IgG IFA <1:10 <1:10 09/14/2024 3:49 PM EDT [facility] SCOTT CARDOZA) Blood Venous blood specimen / Unknown Venipuncture / Unknown 09/10/2024 3:24 AM EDT 09/10/2024 3:42 AM EDT Narrative MNJOELLEN CARDOZA) - 09/14/2024 3:49 PM EDT INTERPRETIVE [...] recommendations for testing may be found at [email or web address]. Performed By: [facility] [address] [place] [address] Bucket Hooker: Austin Bernal MD, PhD CLIA Number: [id number] us Fernando Valenzuela MD LAB BLOOD ORDERABLES Final Resu lt [facility]) [address] [place] [address] * C3 complement (09/10/2024 3:24 AM EDT) C3 Complement 102 84 - 166 mg/dL 09/10/2024 9:22 AM EDT [facility] Blood Venous blood specimen / Unknown Venipuncture / Unknown 09/10/2024 3:24 AM EDT 09/10/2024 3:42 AM EDT Fernando Valenzuela MD LAB BLOOD ORDERABLES Final Resu lt Performing Organization Address City/[facility]/ZIP Co de Phone Number [facility] [address] [place] [address] * C4 complement (09/10/2024 3:24 AM EDT) Pathologist [facility] C4 Complement 15 13 - 36 mg/dL 09/10/2024 9:22 AM EDT [facility] Blood Venous blood specimen / Unknown Venipuncture / Unknown 09/10/2024 3:24 AM EDT 09/10/2024 3:42 AM EDT Fernando Valenzuela MD LAB BLOOD ORDERABLES Final Resu lt Performing Organization Address [facility]/ZIP Co de Phone Number [facility] [address] [place] [address] * (ABNORMAL) Blood gas panel, venous (09/09/2024 4:50 PM EDT) [facility] pH, Venous 7.35 7.32 - 7.43 LAB HEMATOLOGY METHOD 09/09/2024 4:59 PM EDT [facility] pCO2, Venous 58(H) 37 - 52 mmHg LAB HEMATOLOGY METHOD 09/09/2024 4:59 PM EDT [facility] pO2, Venous 19(L) 25 - 40 mmHg LAB HEMATOLOGY METHOD 09/09/2024 4:59 PM EDT [facility] SO2, Measured, Venous 20(L) 65 - 80 % LAB HEMATOLOGY METHOD 09/09/2024 4:59 PM EDT [facility] Base Excess, Venous 4.9(H) -2.0 - 3.0 mmol/L LAB HEMATOLOGY METHOD 09/09/2024 4:59 PM EDT [facility] Bicarbonate, Calculated, Venous 32(H) 22 - 26 mmol/L LAB HEMATOLOGY METHOD 09/09/2024 4:59 PM EDT [facility] Hematocrit, Whole Blood 30.9(L) 34.0 - 45.0 % LAB HEMATOLOGY METHOD 09/09/2024 4:59 PM EDT [facility] Sodium, Whole Blood 133(L) 136 - 145 mmol/L LAB HEMATOLOGY METHOD 09/09/2024 4:59 PM EDT [facility] Potassium, Whole Blood 4.0 3.6 - 4.9 mmol/L LAB HEMATOLOGY METHOD 09/09/2024 4:59 PM EDT [facility] Chloride, Whole Blood 93(L) 97 - 107 mmol/L LAB HEMATOLOGY METHOD 09/09/2024 4:59 PM EDT [facility] Glucose, Whole Blood 208(H) 74 - 99 mg/dL LAB HEMATOLOGY METHOD 09/09/2024 4:59 PM EDT [facility] Lactate, Venous, Whole Blood 2.3(H) 0.5 - 2.2 mmol/L LAB HEMATOLOGY METHOD 09/09/2024 4:59 PM EDT [facility] Ionized Calcium, Whole Blood 4.5(L) 4.6 - 5.1 mg/dL LAB HEMATOLOGY METHOD 09/09/2024 4:59 PM EDT [facility] Blood Venous blood specimen / Unknown Venipuncture / Unknown 09/09/2024 4:50 PM EDT 09/09/2024 4:55 PM EDT [facility] LAB BLOOD ORDERABLES Final Resul t Performing Organization Address City/[facility] de Phone Number [facility] [address] [place] [address] * (ABNORMAL) BNP (09/09/2024 3:50 PM EDT) Only the most recent of3 resultswithin the time period is included. Pathologist [facility] N-Terminal, PROBNP, Plasma 10,690(H) 0 - 899 pg/mL 09/09/2024 4:43 PM EDT [facility] Blood Venous blood specimen / Unknown Venipuncture / Unknown 09/09/2024 3:50 PM EDT 09/09/2024 4:04 PM EDT [facility] BLOOD ORDERABLES Final Resul t Performing Organization Address City/[facility] Co de Phone Number [facility] [address] [place] [address] * EKG now - STAT (adult) (09/09/2024 3:36 PM EDT) Only the most recent of3 resultswithin the time period is included. Pathologist [facility] EKG DIAGNOSIS CLASS Abnormal MUSE ECG Ventricular Rate 61 BPM MUSE ECG Atrial Rate 68 BPM MUSE ECG QRSD Interval 190 ms MUSE ECG QT Interval 546 ms MUSE ECG QTC Interval 549 ms MUSE ECG R [place] -74 degrees MUSE ECG T Wave [place] 120 degrees MUSE ECG Diagnosis Ventricular-p aced rhythm MUSE ECG Diagnosis Abnormal ECG MUSE ECG Diagnosis MUSE ECG Diagnosis Confirmed by Chris Cline ([id number]) on 09/09/2024 4:33:37 PM MUSE ECG 09/09/2024 3:36 PM EDT 09/09/2024 4:33 PM EDT us Vini L New [place] ECG ORDERABLES Final Result MUSE ECG * [...] Res ult [facility] [address] [place] [address] * Ferritin (09/08/2024 1:33 PM EDT) Pathologist [facility] Ferritin, Serum 102 13 - 150 ng/mL 09/08/2024 4:37 PM EDT [facility] Blood Venous blood specimen / Unknown Venipuncture / Unknown 09/08/2024 1:33 PM EDT 09/08/2024 1:33 PM EDT us Alisa Kunz DO LAB BLOOD ORDERABLES Final Res ult Performing Organization Address City/[facility]/ZIP Co de Phone Number [facility] [address] [place] [address] * SARS-CoV-2, Flu A, Flu B, and RSV (09/08/2024 1:09 PM EDT) [facility] SARS CoV-2/COVID-19 RNA PCR Result Not Detected [...] Detected Not Detected 09/09/2024 10:[address] [facility] Swab Nasopharyngeal structure / Unknown Non-blood [...] This test was performed on the BD MaXware Respiratory Viral Panel, a PCR-based method. Negative results should be considered presumptive and do not preclude current or future infection obtained through community transmission or other exposures. Negative results must be considered in the context of an individual's recent exposures, history, presence of clinical signs and symptoms consistent with COVID-19, Influenza A or B, and RSV. us Alisagricel Kunz LAB MICROBIOLOGY - GENERAL ORD ERABLES Final Result [facility] [address] [place] [address] * RIGHT HEART CATHETERIZATION (08/18/2024 4:04 PM [...] then carried out using a 7.5F VIP [place]-Carter catheter. Pressures were recorded as the catheter [...] the patient was transferred back to the vp lab holding area in good condition. Study Details [...] % 08/18/2024 3:53 PM EDT [facility] Plant Operations Vice President ID Parvezparishbhavana Ngozi 08/18/2024 3:53 PM EDT [facility] Device ID [id number] 08/18/2024 3:53 PM EDT [facility] POCT Sample Site PA 08/18/2024 3:53 PM EDT [facility] POCT Total Hemoglobin 9.7(L) 11.2 - 15.7 g/dL 08/18/2024 3:53 PM EDT [facility] 08/18/2024 3:52 PM EDT 08/18/2024 3:53 PM EDT Kenneth James MD LAB POINT OF CARE TE ST DOCKED DEVICE UNSOLICITED RESULTS Final Result [facility] [address] [place] [address] * (ABNORMAL) POCT CO-Oximitry, Venous (08/18/2024 3:50 PM EDT) POCT OXYHEMOGLOBIN, VENOUS 65 40 - 70 % 08/18/2024 3:50 PM EDT [facility] Plant Operations Vice President ID Parvezparishbhavana Ngozi 08/18/2024 3:50 PM EDT [facility] Device ID [id number] 08/18/2024 3:50 PM EDT [facility] POCT Sample Site -[facility]- 08/18/2024 3:50 PM EDT [facility] POCT Total Hemoglobin 9.7(L) 11.2 - 15.7 g/dL 08/18/2024 3:50 PM EDT [facility] Venous blood specimen / Unknown 08/18/2024 3:50 PM EDT 08/18/2024 3:50 PM EDT Kenneth James MD LAB POINT OF CARE TE ST DOCKED DEVICE UNSOLICITED RESULTS Final Result [facility] [address] [place] [address] * Chylomicron Electrophoresis (Reflex Only) (08/17/2024 10:57 AM EDT) Chylomicron Electrophoresis Billed 08/25/2024 6:56 PM EDT [facility] Fluid Pleural fluid specimen / Unknown 08/17/2024 10:57 AM EDT 08/17/2024 11:10 AM EDT Narrative [facility] ([facility]) - 08/25/2024 6:56 PM EDT Performed By: [facility] [address] [place] [address] Bucket Hooker: Austin Bernal MD, PhD CLIA Number: [id number] us Boby Rouse APRN LAB REF LAB BLOOD AND FLUID ORD Final Result [facility] [address] [place] [address] * Triglycerides BF with RFLX to CHYLO (SO) (08/17/2024 10:57 AM EDT) Triglyceride, Fluid 27 mg/dL 08/25/2024 6:56 PM EDT [facility] ([facility]) Triglyceride Fluid Source Pleural fluid 08/25/2024 6:56 PM EDT [facility] ([facility]) Chylomicron Screen, Body Fluid Absent Absent 08/25/2024 6:56 PM EDT [facility] ([facility]) Fluid Pleural fluid specimen / Unknown 08/17/2024 10:57 AM EDT 08/17/2024 11:10 AM EDT Narrative [facility] ([facility]) - 08/25/2024 6:56 PM EDT INTERPRETIVE INFORMATION: Triglycerides, Fluid For information on body fluid reference ranges and/or interpretive guidance visit [email or web address]/ This test was developed and its performance characteristics determined by [facility]. It has not been cleared or approved by the US Food and Drug Administration. This test was performed in a CLIA certified laboratory and is intended for clinical purposes. Chylomicrons were not detected. This appears to be a nonchylous fluid. INTERPRETIVE INFORMATION: Chylomicron Screen, Body Fluid This test was developed and its performance characteristics determined by [facility]. It has not been cleared or approved by the U.S. Food and Drug Administration. This test was performed in a CLIA-certified laboratory and is intended for clinical purposes. Performed By: [facility] [address] [place] [address] Bucket Hooker: Austin Bernal MD, PhD CLIA Number: [id number] Boby Rouse APRN LAB REF LAB BLOOD AND FLUID ORD Final Result [facility] ([facility]) [address] [place] [id number] * Amylase, Pleural Fluid (08/17/2024 10:57 AM [...] developed and its performance characteristics determined by [facility]. The U.S. Food and Drug [...] upper reference limit for serum and a ogwvg-hd-[id number] amylase ratio greater than one. Note: Interpretive [...] FLUIDS AND STOOLS ORD ERABLES Final Result [facility] [address] [place] [address] * Cholesterol Fluid Battery (08/17/2024 10:57 AM EDT) CHOLESTEROL, FLUID 28 mg/dL 08/19/2024 1:48 PM EDT [facility] ([facility]) CHOLESTEROL FLUID SOURCE Pleural fluid 08/19/2024 1:48 PM EDT [facility] ([facility]) Pleural Fluid Structure of right pleural cavity / Unknown Non-blood Collection / Unknown 08/17/2024 10:57 AM EDT 08/17/2024 11:10 AM EDT Narrative [facility] ([facility] - 08/19/2024 1:48 PM EDT INTERPRETIVE INFORMATION: Cholesterol, Body Fluid For information on body fluid reference ranges and/or interpretive guidance visit [email or web address]/[email or web address]/ This test was developed and its performance characteristics determined by [facility]. It has not been cleared or approved by the [place] Food and Drug Administration. This test was performed in a CLIA certified laboratory and is intended for clinical purposes. Performed By: [facility] [address] [place] [address] Bucket Hooker: Austin Bernal MD, PhD CLIA Number: [id number] Boby Rouse APRN LAB REF LAB BLOOD AND FLUID ORD Final Result Performing Organization Address [facility] Co de Phone Number [facility] ([facility]) [address] [place] [address] * Adenosine Deaminase,Pleural Fluid (08/17/2024 10:57 AM EDT) ADA, Pleural Fluid 5 0 - 30 U/L 08/19/2024 3:10 PM EDT [facility] ([facility]) Pleural Fluid Structure of right pleural cavity / Unknown Non-blood Collection / Unknown 08/17/2024 10:57 AM EDT 08/17/2024 11:10 AM EDT Narrative [facility] ([facility]) - 08/19/2024 3:10 PM EDT INTERPRETIVE INFORMATION:Adenosine Deaminase, Pleural Fluid This test was developed and its performance characteristics determined by [facility]. It has not been cleared or approved by the US Food and Drug Administration. This test was performed in a CLIA certified laboratory and is intended for clinical purposes. Performed By: [facility] [address] [place] [address] Bucket Hooker: Austin Bernal MD, PhD CLIA Number: [id number] Boby Rouse APRN LAB BODY FLUIDS AND STOOLS ORDERABLES Final Result Performing Organization Address [facility] de Phone Number [facility] ([facility]) [address] [place] [address] * Glucose - Pleural Right (08/17/2024 10:57 [...] malignancy, empyema, and/or rheumatoid disease. Boby Rouse [facility] LAB BODY FLUIDS AND STOOLS ORDERABLES Final Result [facility] [address] [place] [address] * (ABNORMAL) Blood gas panel, arterial (08/15/2024 [...] ORDERABLES Final R esult Performing Organization Address [facility]/ZIP Co de Phone Number [facility] [address] [place] [address] * Vitamin D 25 Hydroxy (08/15/2024 4:52 AM EDT) Pathologist [facility] Vitamin D 25 Hydroxy 51.5 20.0 - 80.0 ng/mL 08/15/2024 6:37 AM EDT [facility] Blood Venous blood specimen / Unknown Venipuncture / Unknown 08/15/2024 4:52 AM EDT 08/15/2024 4:59 AM EDT Narrative [facility] - 08/15/2024 6:37 AM EDT Testing performed on Blank Fence Gate Assembler, standardized against NIST SRM 2972. When testing [...] to 80 ng/mL Possible toxicity: >100 ng/mL us Arben Ibarra MD LAB BLOOD ORDERABLES Final Re sult Performing Organization Address [facility]/ZIP Co de Phone Number [facility] [address] [place] [address] * Phosphorus (08/15/2024 4:52 AM EDT) Phosphorus, Plasma 3.2 2.5 - 4.5 mg/dL 08/15/2024 5:32 AM EDT [facility] Blood Venous blood specimen / Unknown Venipuncture / Unknown 08/15/2024 4:52 AM EDT 08/15/2024 4:59 AM EDT Arben Ibarra MD LAB BLOOD ORDERABLES Final Re sult Performing Organization Address City/[facility] Co de Phone Number [facility] [address] [place] [address] * (ABNORMAL) Hemoglobin A1c (08/14/2024 6:08 PM [...] Adults <6.0% Children and Adolescents <7.5% Source: [place] [employer]. Standards of medical care in diabetes,2017. Diabetes Care.2017:40 (suppl 1):S1-S135. Arben Ibarra MD LAB BLOOD ORDERABLES Final Re sult Performing Organization Address City/[facility]/ZIP Co de Phone Number [facility] [address] [place] [address] * (ABNORMAL) Troponin now and 120 min (08/14/2024 2:55 PM EDT) Troponin T, High Sensitivity, 0 Hour 29(H) <14 ng/L 08/14/2024 3:43 PM EDT [facility] Blood Venous blood specimen / Unknown Venipuncture / Unknown 08/14/2024 2:55 PM EDT 08/14/2024 2:58 PM EDT us Jackson Puente MD LAB BLOOD ORDERABLES Fi nal Result Performing Organization Address City/[facility]/ZIP Co de Phone Number [facility] [address] [place] [address] * Hepatitis C Antibody - ED (01/29/2024 3:32 PM EST) Hepatitis C Antibody Negative Negative 01/29/2024 5:07 PM EST [facility] Blood Venous blood specimen / Unknown Venipuncture / Unknown 01/29/2024 3:32 PM EST 01/29/2024 4:03 PM EST us Fortino Ball MD LAB BLOOD ORDERABLES Final Result Performing Organization Address [facility] Co de Phone Number [facility] [address] [place] [address] * Dexa Bone Density (01/10/2023 10:23 AM EDT) Anatomical Region Laterality Modality L-spine Radiographic Elissa ging Narrative 01/12/2023 8:29 AM EST [facility] [address] [place] [address] DXA Bone Densitometry Report: [01/10/2023] Subjective BMD test performed using the PlatogoXA DXA System (analysis version: 14.10) manufactured by [employer]. REFERRING PROVIDER: Alisa Ortega DO CLINICAL INFORMATION: [...] (u/s core benign) and right breast surgery, 2014 (u/s core benign). COMPARISON STUDIES: Compared to: 04/19/2015 Mammography Breast Screening Tomosynthesis Bilateral at [facility] 05/06/2017 Mammography Breast Screening Tomosynthesis Bilateral at [facility] 01/25/2020 Mammography Breast Screening Tomosynthesis Bilateral at [facility] BREAST COMPOSITION: The breasts are heterogeneously dense, which may obscure small masses. FINDINGS: There are post-biopsy clip(s) present in the the right breast. There is no evidence of suspicious masses, calcifications, or other abnormal findings. us Jackson Malave MD IMG BI PROCEDURES Final Re sult from Last 3 Months or Most Recently Relevant to Health Maintenance Insurance [employer] Advance Directives * Full Code (Latest [...] Patient has decision-making capacity? Yes Care Teams Truck Shop Mechanic Relationship Specialty Start Date End Date Alisa Kunz DO [address] [place] [id number] PCP - General Internal Medicine 03/13/21 Kodi Bustos DO [address] [phone] Surgeon Cardiothoracic Surgery 11/06/22 Sujit Arriola MD [address] [place] [address] Consulting Physician Pulmonary Disease 11/06/22 Sujit Reyes MD [address] [place] [address] Referring Physician 12/04/22 Zee Lazar DO [address] [place], [place] [id number] Resident 09/08/24
--- OUTSIDE RECORDS SUMMARY | 2024-11-09 10:35 | XMS_ITS | Encounter Summary ---
Author Organization [facility] Address [address] [place] [address] Care Team Providers Care Heading Repairer Name Role Phone Alisa Kunz DO Primary Care Provider Kodi Bustos DO Unavailable [phone] Sujit Arriola MD Unavailable [phone] Sujit Reyes MD Unavailable [phone] Patricia Yañez LPN Unavailable Unavailab Zee Lr DO Unavailable [phone] Reason for Visit * Reason Onset Date Comments HCN Clinical Concern/Question 09/03/2024 Pl ease see note... Encounter Details Date Type Department Care Team (Late st Contact Info) Description 09/03/2024 Telephone [facility] Internal Medicine [address], 3rd [place] [address] Alisa Kunz DO [address] [place] [address] HCN Clinical Concern/Question (Please see [...] Recorded Patient Health Questionnaire-2 Score 0 09/08/2024 [facility] - Occupational Stress Questionnaire Answer [...] drink first t anselmo in the morning (EYE-SPEECH COACH) to steady your nerves or to [...] Patient is returning missed call from social sciences research scientist and is asking for a call back. Best contact number: [phone] (mobile) Optimal time of day to reach [...] will receive notification of the communication/outcome via [employer]. documented in this encounter Plan of Treatment Upcoming Encounters Date Type Department Care Team (Late st Contact Info) Description 12/06/2024 11:20 AM EDT Office Visit [facility] Internal Medicine [address] 3rd [place] [address] Alisa Kunz, DO [address] [place] [address] 12/23/2024 4:00 PM EDT Office Visit [facility] Medicine Specialties [address], [address] [place] [address] Lavenr Shoemaker MD [address] [place], [place] [id number] 02/02/2025 8:40 AM EST Office Visit [facility] Internal Medicine [address], [address] [place] [address] Alisa Kunz, DO [address] [place] [address] 02/09/2025 12:20 PM EST Office Visit [facility] Endocrinology [address] [place] [address] Anne-Marie Kolb L, ELECTRICIAN'S ASSISTANT 2[address] [facility] 125 [place] [address] documented as of this encounter Visit Diagnoses [...] as of this encounter Care Teams Heading Repairer Relationship Specialty Start Date End Date Alisa Kunz DO [address] [place] [address] PCP - General Internal Medicine 03/13/21 Kodi Bustos DO [address] [address] Surgeon Cardiothoracic Surgery 11/06/22 Sujit Arriola MD [address] [place] [address] Consulting Physician Pulmonary Disease 11/06/22 Sujit Reyes MD [address] [place] [address] Referring Physician 12/04/22 Patricia Yañez LPN [facility] TCM Nurse 08/25/24 10/17/24 Zee Lazar DO [address] [place] [address] Resident 09/08/24 documented as of this encounter
--- OUTSIDE RECORDS SUMMARY | 2024-11-09 10:35 | XMS_ITS | Encounter Summary ---
Author Organization Healthcare Address [address] [place] [address] Care Team Providers Care Rotary Adjuster Name Role Phone Alisa Kunz Torri DO Primary Care Provider Kodi Bustos DO Unavailable [phone] Sujit Arriola MD Unavailable [phone] Sujit Reyes MD Unavailable [phone] Patricia Yañez LPN Unavailable Unavailab Zee Lr DO Unavailable [phone] Encounter Details Date Type Department Care Team (Late st Contact Info) Description 09/07/2024 Telephone [facility] Medicine Specialties [address] [place] [address] Sadiq Osborne, SHANA [address] [id number] Social History Tobacco Use Types Packs/Day Years [...] drink first t anselmo in the morning (EYE-MEDICAL DEVICE ENGINEER) to steady your nerves or to get rid of a hangover? 0 08/14/2024 CAGE Questionnaire Score 0 025 Utilities Answer Date Recorded In the past 12 months has [employer] electric, gas, oil, or water [employer] threatened to shut off services in your [...] Risk Indicated 09/15/2024 8:00 AM EDT Sunny Ramierz RN * If you checked off any [...] her mouth. Please call. Best contact number: [phone] (mobile) Optimal time of day to reach caller: ANYTIME Additional comments/information from caller: None Note: Please do not reply to this message. Follow-up communication and further actions as a result of this message need to be communicated with the patient directly, if the patient is not active onMyChart. If the patient is active on MyChart, they will receive notification of the communication/outcome via [employer]. documented in this encounter Plan of Treatment Upcoming Encounters Date Type Department Care Team (Late st Contact Info) Description 12/06/2024 11:20 AM EDT Office Visit [facility] Internal Medicine [address], [address] [place] [address] Alisa Kunz, DO [address] [place] [address] 12/23/2024 4:00 PM EDT Office Visit [facility] Medicine Specialties [address] [place] [address] Lavern Shoemaker MD [address] [place], [place] [id number] 02/02/2025 8:40 AM EST Office Visit [facility] Internal Medicine [address], [address] [place] [address] Alisa Kunz, DO [address] [place] [address] 02/09/2025 12:20 PM EST Office Visit [facility] Endocrinology [address] [place] [address] Anne-Marie Kolb L, FORMING PROCESS LINE WORKER 2[address] [facility] [address] [place] [address] documented as of this encounter Visit Diagnoses [...] documented as of this encounter Care Teams Rotary Adjuster Relationship Specialty Start Date End Date Alisa Kunz DO [address] [place] [address] PCP - General Internal Medicine 03/13/21 Kodi Bustos DO [address] [address] Surgeon Cardiothoracic Surgery 11/06/22 Sujit Arriola MD [address] [place] [address] Consulting Physician Pulmonary Disease 11/06/22 Sujit Reyes MD [address] [place] [address] Referring Physician 12/04/22 Patricia Yañez LPN [facility] TCM Nurse 08/25/24 10/17/24 Zee Lazar DO [address] [place], [place] [address] Resident 09/08/24 documented as of this encounter
--- OUTSIDE RECORDS SUMMARY | 2024-11-09 10:35 | XMS_ITS | Clinical Summary ---
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 (E10.621) L97.522 (ICD-10-CM ) 04/20 Active 04/20 Patricia Sutherland Non-pressure chronic ulcer of other part of left foot with fat layer exposed Cellulitis, foot, left 741610572 (SNOMED CT) 04/20 Active 04/20 Patricia Koko Cellulitis of foot Cellulitis, toe, left 19899500 (SNOMED CT) 04/20 Active 04/20 Patricia Koko Cellulitis of toe Left atrial thrombus 626000058 (SNOMED CT) 04/20 Active 04/20 Patricia Koko Atrial thrombosis SLE (Systemic lupus erythematosus ) 67096225 (SNOMED CT) 04/20 Active 04/20 Patricia Koko Systemic lupus erythematosus Presence of cardiac pacemaker 073797374 (SNOMED CT) 04/20 Active 04/20 Patricia Sutherland Cardiac pacemaker in situ Coronary artery disease, S/P CABG 507708522 (SNOMED CT) 04/20 Active 04/20 Patricia Sutherland Arteriosclerosis of coronary artery bypass graft DM, type I 29140643 (SNOMED CT) 04/20 Active 04/20 Patricia Sutherland Type 2 diabetes mellitus Benign Essential Hypertension 72192788 (SNOMED CT) 04/20 Active 04/20 Patricia Sutherland Benign hypertension Medications Medication Instructions Start Date Stop Date Generic Name NDC Provider Iron (ferrous sulfate) (ferrous sulfate) ferrous sulfate [facility] B-12 1000 MCG CAPS every morning cya nocobalamin (vitamin b-12) 49877733945 [facility] LIVALO 4 MG TABS every night pitavas tatin calcium 66816460593 [facility] ZETIA 10 MG TABS every night ezetimibe 984005693 01 [facility] latanoprost (bulk) every evening bulk [facility] Zyrtec (cetirizine) every evening cetirizine [facility] MYCOPHENOLATE MOFETIL 500 MG TABS twice a day mycophenolat e mofetil 16073486444 [facility] CETIRIZINE HCL 10 MG TABS Take 1 tablet by mouth once a day 02/23 cetirizine 51836509087 [facility] BRIMONIDINE TARTRATE 0.2 % SOLN Apply 1 drop in eye as directed 06/14 brimonidine 98577793717 [facility] Trelegy Ellipta 200-62.5-25 MCG/INH inhaler Inhale 2 puff once a day 07/17 Trelegy Ellipta 200-62.5-25 MCG/INH inhaler [facility] HYDROXYCHLOROQUINE SULFATE 200 MG TABS Take 1 tablet by mouth once a day 12/05 hydroxychloroquine 90033756402 [facility] RISAQUAD CAPS Take 1 capsule by mouth once a day 04/18 l.acid,para-b.bifid um-s.therm 53267311725 [facility] LOSARTAN POTASSIUM 25 MG TABS Take 1 tablet by mouth once a day 11/17 losartan 60608981374 [facility] FOLIC ACID 1 MG TABS Take 1 tablet by mouth once a day folic acid 11375946936 [facility] PITAVASTATIN CALCIUM 2 MG TABS Take 1 tablet by mouth every night 02/23 pitavastatin calcium 69277156004 [facility] Insulin Glargine (TOUTREVOR SOLOSTAR SC) Inject 23 unit subcutaneously every night as directed 02/23 TOUJEO SOLOSTAR SC [facility] EZETIMIBE 10 MG TABS Take 1 tablet by mouth every night 02/23 ezetimibe 01664445516 [facility] DULOXETINE HCL 20 MG CPEP Take 1 capsule by mouth once a day 02/23 duloxetine 86564296531 [facility] BUSPIRONE HCL 5 MG TABS Take 1 tablet by mouth twice a day buspirone 25832923625 [facility] INSULIN LISPRO 100 UNIT/ML SOLN Inject 3 unit subcutaneously three times a day as directed 02/23 insulin lispro 75903386922 [facility] METOPROLOL SUCCINATE ER 25 MG WE21E-GPS Take 1 tablet by mouth once a day 12/06 metoprolol succinate 76951529844 [facility] LATANOPROST 0.005 % SOLN Administer 1 drop into both eyes every night 06/15 latanoprost 60171413163 [facility] ASPIRIN LOW DOSE 81 MG TBEC Take 1 tablet by mouth every night aspirin 51142836539 [facility] LEVOTHYROXINE SODIUM 125 MCG TABS Take 1 tablet by mouth once a day 02/23 levothyroxine 33532021407 [facility] WARFARIN SODIUM 5 MG TABS Take 1 tablet by mouth every night 04/04 warfarin 05527475284 [facility] HYDROXYCHLOROQUINE SULFATE 200 MG TABS Take 1 tablet by mouth every night 02/23 hydroxychloroquine 74320337388 [facility] AZITHROMYCIN 250 MG TABS Take 1 tablet by mouth once a day 02/23 azithromycin 86495578222 [facility] GABAPENTIN 100 MG CAPS Take 9 capsule by mouth every night 08/28 gabapentin 39815410770 [facility] DULOXETINE HCL 60 MG CPEP Take 1 capsule by mouth Daily. 60mg and 20mg in the morning 02/23 duloxetine 41578841686 [facility] Calcium Citrate-Vitamin D (CALCIUM D PO) Take 1 tablet by mouth once a day CALCIUM D PO [facility] EZETIMIBE 10 MG TABS Take 1 tablet by mouth once a day 09/20 ezetimibe 94072308762 Madyson Villar Toujeo Max U-300 SoloStar (insulin glargine u-300 conc) every morning insulin glargine u-300 conc Madyson Villar CYMBALTA 60 MG CPEP every morning duloxetine 000 91780505 Madyson Villar Cymbalta 20 mg capsule,delayed release every morning duloxetine 38187306630 Madyson Villar WARFARIN SODIUM 5 MG TABS Take 1 tablet by mouth Every Night. 04/04 warfarin 87219618228 [facility] Trelegy Ellipta 200-62.5-25 MCG/INH inhaler Inhale 2 puffs Daily. 07/17 Trelegy Ellipta 200-62.5-25 MCG/INH inhaler [facility] PITAVASTATIN CALCIUM 2 MG TABS Take 1 tablet by mouth Every Night. 02/23 pitavastatin calcium 18514915762 [facility] METOPROLOL SUCCINATE ER 25 MG LD23I-PCL Take 1 tablet by mouth Daily. 12/06 metoprolol succinate 68163900859 [facility] LOSARTAN POTASSIUM 25 MG TABS Take 1 tablet by mouth Daily. 11/17 losartan 41200456762 [facility] LEVOTHYROXINE SODIUM 125 MCG TABS Take 1 tablet by mouth Daily. 02/23 levothyroxine 43685749352 [facility] LATANOPROST 0.005 % SOLN Administer 1 drop to both eyes Every Night. 06/15 latanoprost 92309823473 [facility] RISAQUAD CAPS Take 1 capsule by mouth Daily for 14 days. 04/18 l.acid,para-b.bifid um-s.therm 00332517812 [facility] INSULIN LISPRO 100 UNIT/ML SOLN Inject 3 Units under the skin into the appropriate area as directed 3 (Three) Times a Day Before Meals. 02/23 insulin lispro 35218157846 [facility] Insulin Glargine (TOURANDYO SOLOSTAR SC) Inject 23 Units under the skin into the appropriate area as directed Every Night. 02/23 TOUJEO SOLOSTAR SC [facility] HYDROXYCHLOROQUINE SULFATE 200 MG TABS Take 1 tablet by mouth Daily. 12/05 hydroxychloroquine 66663865216 [facility] HYDROXYCHLOROQUINE SULFATE 200 MG TABS Take 1 tablet by mouth Every Night. 09/07 hydroxychloroquine 15556896992 [facility] GABAPENTIN 100 MG CAPS Take 9 capsules by mouth Every Night. 08/28 gabapentin 49816504744 [facility] FOLIC ACID 1 MG TABS Take 1 tablet by mouth Daily. 02/23 folic acid 64149552789 [facility] EZETIMIBE 10 MG TABS Take 1 tablet by mouth Daily. 09/20 ezetimibe 73623025083 [facility] EZETIMIBE 10 MG TABS Take 1 tablet by mouth Every Night. 02/23 ezetimibe 33436746718 [facility] DULOXETINE HCL 60 MG CPEP Take 1 capsule by mouth Daily. 60mg and 20mg in the morning 02/23 duloxetine 49870979603 [facility] DULOXETINE HCL 20 MG CPEP Take 1 capsule by mouth Daily. 02/23 duloxetine 26535846770 [facility] CETIRIZINE HCL 10 MG TABS Take 1 tablet by mouth Daily. 02/23 cetirizine 19401865220 [facility] CEFDINIR 300 MG CAPS Take 1 capsule by mouth Every 12 (Twelve) Hours for 5 doses. Indications: Infection of the Skin and/or Soft Tissue 04/17 cefdinir 13808603377 [facility] Calcium Citrate-Vitamin D (CALCIUM D PO) Take 1 tablet by mouth Daily. 02/23 CALCIUM D PO [facility] BUSPIRONE HCL 10 MG TABS Take 1 tablet by mouth 2 (Two) Times a Day. 02/23 buspirone 60918815505 [facility] BRIMONIDINE TARTRATE 0.2 % SOLN Apply 1 drop to eye(s) as directed by provider. 06/14 brimonidine 51533976123 [facility] AZITHROMYCIN 250 MG TABS Take 1 tablet by mouth Daily. 09/07 azithromycin 29297349798 [facility] ASPIRIN LOW DOSE 81 MG TBEC Take 1 tablet by mouth Every Night. 09/07 aspirin 68482856645 [facility] Medications Administered No information available. 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
--- OUTSIDE RECORDS SUMMARY | 2024-11-09 10:35 | XMS_ITS | Encounter Summary ---
Author Organization [facility] Address [address] [place] [address] Care Team Providers Care Health And Safety Coordinator Name Role Phone Alisa Kunz Primary Care Provider [phone] Encounter Details Date Type Department Care Team (Latest Contact Info) Description 11/03/2024 Anticoagulation Visit [facility] [address] [facility] [address] [place] [address] Yancy Viveros, Laborer Steel Handling Left ventricular apical thrombus (Primary Dx) Social [...] this encounter Progress Notes * Yancy Viveros, Laborer Steel Handling - 11/03/2024 10:26 AM EDT [facility] Progress Note Patient Demographics Method of INR reporting: [employer] Home Monitor SN [id number] Estimated OOP Cost: Indication: Left Ventricular Atypical Thrombus (~2012) Referring Provider Nanette Pryor APRN Reason patient is not on a DOAC: Goal INR: 2-3 Warfarin Start Date ~02/12/24 Reason patient is not on home monitor: [id number]: Planned Duration of Therapy Indefinite Relevant medical [...] - HM 1.4 - Clinic 1.32 - ULTRASOUND TECHNOLOGIST 2.8 2.0 Notes Admitted [facility] Rec'd 05/27 HM 1-BILL TODAY HM 2- no leonid; In clinic HM 3 - no bill HM 4 - no bill HM 1- BILL TODAY HM 2 - no bill Rec'd 08/11 HM 3 - no bill HM 4- no bill Rec'd 09/02 In clinic Date 09/27 10/04 10/18 10/26 11/02 Total Weekly Dose 32.5 mg 35 mg 37.5 mg 35 mg 35 mg INR 1.6 2.04 2.14 2.68 2.63 Notes Rec'd 09/28 Rec'd 10/05 Rec'd 10/19 Rec'd 10/28 Rec'd 11/03 Patient Contact Information Verbal release: Signed 03/05/24 Preferred contact number: [phone] Alternative contact number(s): [phone] (Doron) [phone] (Ruthie) [phone] (Madyson) Patient Appropriate for WarfNoCall ? No [...] Other complaints Comments: Patient took 5 mg 11/02 instead of the instructed 7.5 mg. All other findings negative per patient Assessment and Plan: INR was therapeutic yesterday at 2.63 (2.0-3.0). Instructed patient to continue warfarin 5 mg dailyexcept 7.5 mg Fri until recheck. Recheck INR in 1 week, 11/09. Patient prefers testing Tuesdays. Verbal and written information provided. Michelle Felipe expresses understanding by teach back and has no further questions at this time. Reema Beal, PharmJoel 11/03/2024 11:16 EDT documented in this encounter Plan of Treatment Upcoming Encounters Date Type Department Care Team (Late st Contact Info) Description 11/28/2024 7:45 PM EDT Appointment [facility] [address] [facility] [address] [place] [address] 12/02/2024 3:30 PM EDT Office Visit [facility] CARDIOLOGY [address] [place] [address] [place] [address] Sujit Reyes MD [address] [facility] [address] [facility] [address] [place] [address] 01/19/2025 1:45 PM EST Office Visit [facility] [address] [facility] [address] [place] [address] Naveen Velasquez MD [address] [facility] [address] [facility] [address] [place] [address] documented as of this encounter Procedures Procedure Name Priority Date/Time Associated Diagnosis Comments SCANNED - LABS 11/03/2024 PROTIME-INR Routine 11/02/2024 documented in this encounter Results * LABS SCANNED (11/03/2024) [facility] LAB BLOOD ORDERABLES Final Re sult * Protime-INR (11/02/2024) INR 2.63 Blood 11/02/2024 [facility] Provider LAB BLOOD ORDERABLES Lee Ann l Result documented in this encounter Visit Diagnoses Diagnosis Left ventricular apical thrombus- Primary documented in this encounter Care Teams Health And Safety Coordinator Relationship Specialty Start Date End Date Alisa Kunz DO [address] [place] [address] PCP - General Internal Medicine 04/26/21 documented as of this encounter
--- OUTSIDE RECORDS SUMMARY | 2024-11-09 10:36 | XMS_ITS | Encounter Summary ---
Author Organization Healthcare Address [address] [place] [address] Care Team Providers Care Preparatory Technician Name Role Phone ZeNitin willettgricel Wild DO Primary Care Provider [phone] Kodi Bustos DO Unavailable [phone] Sujit Arriola MD Unavailable [phone] Sujit Reyes MD Unavailable [phone] Patricia Yañez LPN Unavailable Unavailab Zee Lr DO Unavailable [phone] Encounter Details Date Type Department Care Team (Late st Contact Info) Description 09/03/2024 Telephone [facility] Endocrinology [address] [place] [address] Anne-Marie Kolb L, HARNESS INSTALLER [address] [facility] [address] [place] [address] Social History Tobacco Use Types [...] drink first t anselmo in the morning (EYE-DINKEY ENGINE FIRER/FIREMAN) to steady your nerves or to get [...] she has been taking a supplement called [employer] with Cinanamon and Tumeric and other ingredients. [...] other concerns voiced. * Telephone Encounter - VALENTINE, CARRIE Wei - 09/03/2024 10:43 AM EDT Pt calling to report how her BG has been doing since her insulin adjustment. documented in this encounter Plan of Treatment Upcoming Encounters Date Type Department Care Team (Late st Contact Info) Description 12/06/2024 11:20 AM EDT Office Visit [facility] Internal Medicine [address]rd [place] [address] Alisa Kunz, DO [address] [address] 12/23/2024 4:00 PM EDT Office Visit [facility] Medicine Specialties [address] [place] [address] Lavern Shoemaker MD [address] [place], [place] [address] 02/02/2025 8:40 AM EST Office Visit [facility] Internal Medicine [address]rd [place] [address] Alisa Kunz, DO [address] [facility] [address] [place] [address] 02/09/2025 12:20 PM EST Office Visit [facility] Endocrinology [address] [place] [address] Anne-Marie Kolb L, HARNESS INSTALLER [address] [facility] 125 [place] [address] documented as of this encounter Visit Diagnoses [...] documented as of this encounter Care Teams Preparatory Technician Relationship Specialty Start Date End Date Alisa Kunz DO [address] [place] [address] PCP - General Internal Medicine 03/13/21 Kodi Bustos DO [address] [place] [address] Surgeon Cardiothoracic Surgery 11/06/22 Sujit Arriola MD [address] [place] [address] Consulting Physician Pulmonary Disease 11/06/22 Sujit Reyes MD [address] [place] [address] Referring Physician 12/04/22 Patricia Yañez LPN [facility] TCM Nurse 08/25/24 10/17/24 Zee Lazar DO [address] [place], [place] [id number] Resident 09/08/24 documented as of this encounter
--- OUTSIDE RECORDS SUMMARY | 2024-11-09 10:36 | XMS_ITS | Clinical Summary ---
Author Organization [employer] ([place], [place], [place], [place]) Address [address] [place] [address] Care Team Providers Care Chief Design Drafter Name Role Phone Unavailable Primary Care Provider [...]
--- OUTSIDE RECORDS SUMMARY | 2024-11-09 10:36 | XMS_ITS | Encounter Summary ---
Author Organization [facility] Address [address] [place] [address] Care Team Providers Care Sample Washer Name Role Phone Alisa Boyer DO Primary Care Provider Kodi Bustos DO Unavailable [phone] Sujit Arriola MD Unavailable [phone] Sujit Reyes MD Unavailable [phone] Zee Lazar DO Unavailable [phone] Reason for Visit * Reason Comments Med Refill Encounter Details Date Type Department Care Team (Late st Contact Info) Description 10/18/2024 Refill [facility] Internal Medicine [address]rd [place] [address] Alisa Boyer DO [address] [place] [address] Social History Tobacco Use Types [...] first t anselmo in the morning (EYE-HOME HEALTH ATTENDANT) to steady your nerves or to get rid of a hangover? 0 08/14/2024 CAGE Questionnaire Score 0 025 Utilities Answer Date Recorded In the past 12 months has [employer], gas, oil, or water [employer] threatened to shut off services in [...] recent hospitalization. She has an appointment with [employer] to talk about a pleural drain on [...] Description 12/06/2024 11:20 AM EDT Office Visit [facility] Internal Medicine [address] 3rd [place] [address] Alisa Boyer DO [address] [facility] [address] [place] [address] 12/23/2024 4:00 PM EDT Office Visit [facility] Medicine Specialties [address] 2nd [place] [address] Lavern Shoemaker MD 800 [place], [place] [address] 02/02/2025 8:40 AM EST Office Visit [facility] Internal Medicine [address] 3rd [place] [address] Alisa Boyer DO [address] [address] 02/09/2025 12:20 PM EST [facility] [address] [place] [address] Anne-Marie Kolb, ACCOUNTS RECEIVABLE BOOKKEEPER [address] [place] [address] documented as of this encounter Visit Diagnoses [...] as of this encounter Care Teams Sample Washer Relationship Specialty Start Date End Date Alisa Boyer DO [address] [place] [address] PCP - General Internal Medicine 03/13/21 Kodi Bustos DO [address] [address] Surgeon Cardiothoracic Surgery 11/06/22 Sujit Arriola MD [address] [place] [address] Consulting Physician Pulmonary Disease 11/06/22 Sujit Reyes MD [address] [place] [address] Referring Physician 12/04/22 Zee Lazar DO 800 [place], [place] [id number] Resident 09/08/24 documented as of this encounter
--- OUTSIDE RECORDS SUMMARY | 2024-11-09 10:36 | XMS_ITS | Encounter Summary ---
Author Organization Healthcare Address [address] [place] [address] Care Team Providers Care Voltage Regulator Assembler Name Role Phone Alisa Kunz DO Primary Care Provider [phone] Kodi Bustos DO Unavailable [phone] Sujit Arriola MD Unavailable [phone] Sujit Reyes MD Unavailable [phone] Patricia Yañez LPN Unavailable Unavailab Zee Lr DO Unavailable [phone] Encounter Details Date Type Department Care Team [...] How often do you attend chur or latter day services? 1 to 4 [...] Score 0 09/08/2024 [facility] - Occupational Stress Questionnaire Answer [...] first t anselmo in the morning (EYE-FIRE PREVENTION RESEARCH ENGINEER) to steady your nerves or to [...] [facility] Internal Medicine [address] 3rd [place] [address] Alisa Kunz, DO [address] [address] 12/23/2024 4:00 PM EDT Office Visit [facility] Medicine Specialties [address] 2[address] [place] [address] Lavern Shoemaker MD 800 [place] [address] 02/02/2025 8:40 AM EST Office Visit [facility] Internal Medicine [address] 3rd [place] [address] Alisa Kunz, DO [address] [address] 02/09/2025 12:20 PM EST Office Visit [facility] Endocrinology [address] [place] [address], [place] [address] Anne-Marie Kolb L, IUSS MASTER ANALYST [address] [facility] [address] [place] [address] documented as of this [...] documented as of this encounter Care Teams Voltage Regulator Assembler Relationship Specialty Start Date End Date Alisa Kunz DO [address] [place] [address] PCP - General Internal Medicine 03/13/21 Kodi Bustos DO [address] [address] Surgeon Cardiothoracic Surgery 11/06/22 Sujit Arriola MD [address] [place] [address] Consulting Physician Pulmonary Disease 11/06/22 Sujit Reyes MD [address] [place] [address] Referring Physician 12/04/22 Patricia Yañez LPN [facility] TCM Nurse 08/25/24 10/17/24 Zee Lazar DO 800 [place], [place] [id number] Resident 09/08/24 documented as of this encounter
--- OUTSIDE RECORDS SUMMARY | 2024-11-09 10:36 | XMS_ITS | Encounter Summary ---
Author Organization Healthcare Address [address] [place] [address] Care Team Providers Care Flat Ironer Name Role Phone Alisa Kunz DO Primary Care Provider [phone] Kodi Bustos DO Unavailable [phone] Sujit Arriola MD Unavailable [phone] Sujit Ryees MD Unavailable [phone] Patricia Yañez LPN Unavailable Unavailab Zee Lr DO Unavailable [phone] Encounter Details Date Type Department Care Team [...] drink first t anselmo in the morning (EYE-ADVERTISING SALES MANAGER) to steady your nerves or to [...] 12/06/2024 11:20 AM EDT Office Visit [facility] Internal Medicine [address]rd [place] [address] Alisa Kunz, DO [address] [address] 12/23/2024 4:00 PM EDT [facility] Medicine Specialties [address]nd [place] [address] Lavern Shoemaker MD [address] [place] [address] 02/02/2025 8:40 AM EST Office Visit [facility] Internal Medicine [address]rd [place] [address] Alisa Kunz, DO [address] [address] 02/09/2025 12:20 PM EST Office Visit [facility] Endocrinology [address] [place] [address] Anne-Marie Kolb, WELT STITCH CLEANER [address] [place] [address] documented as of this encounter [...] documented as of this encounter Care Teams Flat Ironer Relationship Specialty Start Date End Date Alisa Kunz DO [address] [place] [address] PCP - General Internal Medicine 03/13/21 Kodi Bustos DO [address] [address] Surgeon Cardiothoracic Surgery 11/06/22 Sujit Arriola MD [address] [place] [address] Consulting Physician Pulmonary Disease 11/06/22 Sujit Reyes MD [address] [place] [address] Referring Physician 12/04/22 Patricia Yañez LPN [facility] TCM Nurse 08/25/24 10/17/24 Zee Lazar DO 800 [place], [place] [address] Resident 09/08/24 documented as of this encounter
--- OUTSIDE RECORDS SUMMARY | 2024-11-09 10:36 | XMS_ITS | Encounter Summary ---
Author Organization [facility] Address [address] [place] [address] Care Team Providers Care Supply Specialist Name Role Phone Alisa Kunz Primary Care Provider [phone] Reason for Visit * Reason Onset Date Comments - CALL BACK 08/31/2024 Encounter Details Date Type Department Care Team (Late st Contact Info) Description 08/31/2024 Telephone [facility] CARDIOLOGY [address] [place] [address] Naveen Velasquez MD [address] [place] [id number] - CALL BACK Social History Tobacco Use [...] 9:45 AM EDT Tanya Boyce RN * White Suicide Severity Rating Scale (Screener/Recent Self-Report) Question [...] Felipe Relationship: Self Best call back number: [phone] What is the best time to reach [...] Description 11/28/2024 7:45 PM EDT Appointment [facility] [address] [place] [address] 12/02/2024 3:30 PM EDT Office Visit [facility] CARDIOLOGY [address] [place] [address] [place] [address] Sujit Reyes MD [address] [place] [address] 01/19/2025 1:45 PM EST Office Visit [facility] [address] [place] [address] Naveen Velasquez MD [address] [facility] [address] [place] [id number] documented as of this encounter Visit Diagnoses Not on filedocumented in this encounter Care Teams Supply Specialist Relationship Specialty Start Date End Date Alisa Kunz DO [address] [facility] [address] [place] [phone] PCP - General Internal Medicine 04/26/21 documented as of this encounter
--- OUTSIDE RECORDS SUMMARY | 2024-11-09 10:36 | XMS_ITS | Encounter Summary ---
Author Organization Healthcare Address [address] [place] [address] Care Team Providers Care Yeast Pumper Name Role Phone Alisa Kunz DO Primary Care Provider [phone] Kodi Bustos DO Unavailable [phone] Sujit Arriola MD Unavailable [phone] Sujit Reyes MD Unavailable [phone] Patricia Yañez LPN Unavailable Unavailab Zee Lr DO Unavailable [phone] Encounter Details Date Type Department Care Team [...] Questionnaire-2 Score 0 09/08/2024 [facility] - Occupational Stress Questionnaire Answer Date [...] drink first t anselmo in the morning (EYE-TRANSFORMATION ANALYST) to steady your nerves or to [...] [facility] Medicine [address]rd [place] [address] Alisa Kunz, DO [address] [address] 12/23/2024 4:00 PM EDT Office Visit [facility] Medicine Specialties [address]nd [place] [address] Lavern Shoemaker MD 800 [place] [address] 02/02/2025 8:40 AM EST Office Visit [facility] Internal Medicine [address], 3rd [place] [address] Alisa Kunz, DO [address] [address] 02/09/2025 12:20 PM EST Office Visit [facility] Endocrinology [address] [place] [address], [place] [address] Anne-Marie Kolb L, TOOL MARKER [address] [facility] [address] [place] [address] documented as of this encounter [...] as of this encounter Care Teams Yeast Pumper Relationship Specialty Start Date End Date Alisa Kunz DO [address] [place] [address] PCP - General Internal Medicine 03/13/21 Kodi Bustos DO [address] [address] Surgeon Cardiothoracic Surgery 11/06/22 Sujit Arriola MD [address] [place] [address] Consulting Physician Pulmonary Disease 11/06/22 Sujit Reyes MD [address] [place] [address] Referring Physician 12/04/22 Patricia Yañez LPN [facility] TCM Nurse 08/25/24 10/17/24 Zee Lazar DO 800 [place], [place] [address] Resident 09/08/24 documented as of this encounter
--- OUTSIDE RECORDS SUMMARY | 2024-11-09 10:36 | XMS_ITS | Referral Summary ---
Author Organization [employer] [facility] ([place], [place], [place], [place]) Address [address] [place] [address] Care Team Providers Care Plastic Outfitter Name Role Phone Unavailable Primary Care Provider [...]
--- OUTSIDE RECORDS SUMMARY | 2024-11-09 10:36 | XMS_ITS | Encounter Summary ---
Author Organization Healthcare Address [address] [place] [address] Care Team Providers Care Social Sciences Lecturer Name Role Phone Alisa Kunz DO Primary Care Provider Kodi Bustos DO Unavailable [phone] Sujit Arriola MD Unavailable [phone] Sujit Reyes MD Unavailable [phone] Zee Lazar DO Unavailable [phone] Encounter Details Date Type Department Care Team (Late st Contact Info) Description 10/18/2024 Telephone [facility] Internal Medicine [address]rd [place] [address] Alisa Kunz DO [address] [place] [address] Social History Tobacco Use Types [...] often do you attend chur ch or church services? 1 to 4 times [...] Score 0 09/08/2024 [facility] in the past 12 m [facility], were you homeless or living [...] first t anselmo in the morning (EYE-PAPER REWINDER OPERATOR) to steady your nerves or to [...] recent hospitalization. She has an appointment with [facility] to talk about a pleural drain on [...] as an overbook for follow-up in IMG. * Telephone Encounter - Alisa Kunz DO [...] on until after 8. Best contact number: [phone] (mobile) Optimal time of day to reach caller: ANYTIME Additional comments/information from caller: THOMPSON Note: Please do not reply to this message. Follow-up communication and further actions as a result of this message need to be communicated with the patient directly, if the patient is not active onMyChart. If the patient is active on MyChart, they will receive notification of the communication/outcome via [email or web address]. documented in this encounter Plan of Treatment Upcoming Encounters Date Type Department Care Team (Late st Contact Info) Description 12/06/2024 11:20 AM EDT Office Visit [facility] Internal Medicine [address]rd [place] [address] Alisa Kunz DO [address] [place] [address] 12/23/2024 4:00 PM EDT Office Visit [facility] Medicine Specialties [address], [address] [place] [address] Lavern Shoemaker MD [address] [place] [id number] 02/02/2025 8:40 AM EST Office Visit [facility] Internal Medicine [address], [address]rd [place] [address] Alisa Kunz DO [address] [place] [address] 02/09/2025 12:20 PM EST Office [facility] Endocrinology [address] [place] [address] Anne-Marie Kolb L, HARVEST FIELD TICKETER [address] [facility] [address] [place] [address] documented as of this encounter [...] documented as of this encounter Care Teams Social Sciences Lecturer Relationship Specialty Start Date End Date Alisa Kunz DO [address] [place] [address] PCP - General Internal Medicine 03/13/21 Kodi Bustos DO [address] [address] Surgeon Cardiothoracic Surgery 11/06/22 Sujit Arriola MD [address] [place] [address] Consulting Physician Pulmonary Disease 11/06/22 Sujit Reyes MD [address] [facility] [address] [place] [address] Referring Physician 12/04/22 Zee Lazar DO [address] [place] [address] Resident 09/08/24 documented as of this encounter
--- OUTSIDE RECORDS SUMMARY | 2024-11-09 10:36 | XMS_ITS | Encounter Summary ---
Author Organization Healthcare Address [address] [place] [address] Care Team Providers Care Software Development Manager Name Role Phone Alisa Kunz DO Primary Care Provider [phone] Kodi Bustos DO Unavailable [phone] Sujit Arriola MD Unavailable [phone] Sujit Reyes MD Unavailable [phone] Patricia Yañez LPN Unavailable Unavailab Zee Lr DO Unavailable [phone] Encounter Details Date Type Department Care Team [...] 0 09/08/2024 [facility] - Occupational Stress Questionnaire Answer Date Recorded [...] drink first t anselmo in the morning (EYE-ACID ETCH OPERATOR) to steady your nerves or to [...] Risk Indicated 09/11/2024 8:00 PM EDT Sofia Gamino, EVITA * Question Answer Date of Assessment Author 1. Wish to be (Past 1 Month) No 025 8:00 PM EDT Sofia Coronado, EVITA 2. Non-Specific Active Suici dillon Thoughts (Past 1 Month) No 09/11/2024 8:00 PM EDT Aimee Coronado, EVITA 6. Suicidal Behavior (Lifetime) No 8:00 PM EDT Sofia Coronado, EVITA documented as of this encounter Plan of Treatment Upcoming Encounters Date Type Department Care Team (Late st Contact Info) Description 12/06/2024 11:20 AM EDT Office Visit [facility] Internal Medicine [address]rd [place] [address] Alisa Kunz, DO [address] [address] 12/23/2024 4:00 PM EDT [facility] Medicine Specialties [address]nd [place] [address] Lavern Shoemaker MD 800 [place] [address] 02/02/2025 8:40 AM EST Office Visit [facility] Internal Medicine [address], 3rd [place] [address] Alisa Kunz, DO [address] [address] 02/09/2025 12:20 PM EST Office [facility] Endocrinology [address] [place] [address] Anne-Marie Kolb, FITNESS SPECIALIST [address] [facility] [address] [place] [address] documented as of this encounter [...] as of this encounter Care Teams Software Development Manager Relationship Specialty Start Date End Date Alisa Kunz DO [address] [place] [address] PCP - General Internal Medicine 03/13/21 Kodi Bustos, DO [address] [address] Surgeon Cardiothoracic Surgery 11/06/22 Sujit Arriola MD [address] [place] [address] Consulting Physician Pulmonary Disease 11/06/22 Sujit Reyes MD [address] [place] [address] Referring Physician 12/04/22 Patricia Yañez LPN [facility] TCM Nurse 08/25/24 10/17/24 Zee Lazar DO [address] [place], [place] [id number] Resident 09/08/24 documented as of this encounter
--- OUTSIDE RECORDS SUMMARY | 2024-11-09 10:36 | XMS_ITS | Encounter Summary ---
Author Organization [facility] Address [address] [place] [address] Care Team Providers Care Home Health Care Physician Name Role Phone Alisa Kunz DO Primary Care Provider Kodi Bustos DO Unavailable [phone] Sujit Arriola MD Unavailable [phone] Sujit Reyes MD Unavailable [phone] Patricia Yañez LPN Unavailable Unavailab Zee Lr DO Unavailable [phone] Encounter Details Date Type Department Care Team (Late st Contact Info) Description 09/02/2024 Telephone [facility] Internal Medicine [address]rd [place] [address] Alisa Kunz DO [address] [place] [address] Social History Tobacco Use Types [...] Recorded Patient Health Questionnaire-2 Score 0 09/08/2024 [facility] [...] any time in the past 12 m [facility], were you homeless or [...] drink first t anselmo in the morning (EYE-COMPOSITION WEATHERBOARD INSTALLER) to steady your nerves or to [...] energy Not at all 09/08/2024 11:19 AM EDShashank Valiente Poor appetite or overeating Not at all 09/08/2024 11 :19 AM EDT Shashank Burrows Feeling bad about yourself - or that you are a failure or have let yourself or your family down Not at all 09/08/2024 11:19 AM EDT Shashank Frias Trouble concentrating on thi ngs, such as reading the newspaper or watching television Not at all 09/08/2024 11:19 AM Shashnak Barreto Moving or speaking so slowly that [...] you! * Telephone Encounter - Sonam Pretty Sona - 09/02/2024 12:41 PM EDT Clinical Concern/Question Reason for Call: Cece from [facility] calling to let PCP they are starting the patient on Friday and wanted her to be aware. Stated if you have any questions to call back at [phone]. Thank you! Best contact number: [phone] Optimal time of day to reach caller: [...] EDT Office Visit [facility] Internal Medicine [address]rd [place] [address] Alisa Kunz, DO [address] [facility] [address] [place] [address] 12/23/2024 4:00 PM EDT Office Visit [facility] Medicine Specialties [address]nd [place] [address] Lavern Shoemaker MD [address] [place] [address] 02/02/2025 8:40 AM EST Office Visit [facility] Internal Medicine [address] 3rd [place] [address] Alisa Kunz, DO [address] [facility] [address] [place] [address] 02/09/2025 12:20 PM EST Office Visit [facility] Endocrinology [address] [place] [address] Anne-Marie Kolb L, METAL ENGRAVER [address] [facility] [address] [place] [address] documented as of this encounter Visit Diagnoses [...] documented as of this encounter Care Teams Home Health Care Physician Relationship Specialty Start Date End Date Alisa Kunz DO [address] [place] [address] PCP - General Internal Medicine 03/13/21 Kodi Bustos, DO [address] [address] Surgeon Cardiothoracic Surgery 11/06/22 Sujit Arriola MD [address] [place] [address] Consulting Physician Pulmonary Disease 11/06/22 Sujit Reyes MD [address] [place] [address] Referring Physician 12/04/22 Patricia Yañez LPN [facility] TCM Nurse 08/25/24 10/17/24 Zee Lazar DO [address] [place], [place] [address] Resident 09/08/24 documented as of this encounter
--- OUTSIDE RECORDS SUMMARY | 2024-11-09 10:36 | XMS_ITS | Encounter Summary ---
Author Organization [facility] Address [address] [place] [address] Care Team Providers Care Roughing Mill Operator Name Role Phone Alisa Kunz DO Primary Care Provider Kodi Bustos DO Unavailable [phone] Sujit Arriola MD Unavailable [phone] Sujit Reyes MD Unavailable [phone] Patricia Yañez LPN Unavailable Unavailab Zee Lr DO Unavailable [phone] Reason for Visit * Reason Comments Med Refill Encounter Details Date Type Department Care Team (Late st Contact Info) Description 10/05/2024 Refill [facility] Internal Medicine [address] [place] [address] Alisa Kunz DO [address] [place] [address] Social History Tobacco Use Types [...] drink first t anselmo in the morning (EYE-GOVERNOR ASSEMBLER) to steady your nerves or to [...] Description 12/06/2024 11:20 AM EDT Office Visit [facility] Internal Medicine [address] 3[address] [place] [address] Alisa Kunz DO [address] [address] 12/23/2024 4:00 PM EDT [facility] Medicine Specialties [address] [place] [address] Lavern Shoemaker MD 800 [place] [address] 02/02/2025 8:40 AM EST Office Visit [facility] Internal Medicine [address] [place] [address] Alisa Kunz DO [address] [address] 02/09/2025 12:20 PM EST Office Visit [facility] Endocrinology [address] [place] [address] Anne-Marie Kolb, SNOW RANGER [address] [place] [address] documented as of this encounter [...] documented as of this encounter Care Teams Roughing Mill Operator Relationship Specialty Start Date End Date Alisa Kunz DO [address] [place] [address] PCP - General Internal Medicine 03/13/21 Kodi Bustos, DO [address] [address] Surgeon Cardiothoracic Surgery 11/06/22 Sujit Arriola MD [address] [place] [address] Consulting Physician Pulmonary Disease 11/06/22 Sujit Reyes MD [address] [place] [address] Referring Physician 12/04/22 Patricia Yañez LPN [facility] TCM Nurse 08/25/24 10/17/24 Zee Lazar DO 800 [place] [address] Resident 09/08/24 documented as of this encounter
--- OUTSIDE RECORDS SUMMARY | 2024-11-09 10:36 | XMS_ITS | Encounter Summary ---
Author Organization [facility] Address [address] [place] [address] Care Team Providers Care Protective Services Case Worker Name Role Phone Jackson Malave MD Primary Care Provider [phone] Alisa Kunz DO Primary Care Provider [phone] Anu Sen RN Unavailable [phone] HatLauar navas DYE TANK TENDER Unavailable Unavailable Balwinder Vale Unavailable Unavailable Kodi Bustos DO Unavailable [phone] Sujit Arriola MD Unavailable [phone] HatLaura navas LPN Unavailable Unavailable Sujit Reyes MD Unavailable [phone] Zully Caldwell LPN Unavailable Unavailable HatLaura navas LPN Unavailable Unavailable HatLaura navas LPN Unavailable Unavailable Tanya Powell Unavailable [phone] Sarah Reyes DYE TANK TENDER Unavailable Unavailable Ekaterina Gómez Unavailable Unavailable Zully Caldwell LPN Unavailable Unavailable Ekaterina Gómez Unavailable Unavailable Patricia Yañez DYE TANK TENDER Unavailable Unavailab Zee Lr DO Unavailable [phone] Reason for Visit * Reason Comments Med Refill Encounter Details Date Type Department Care Team (Late st Contact Info) Description 02/12/2021 Refill [facility] Internal Medicine [address], [address]rd [place] [address] Jackson Malave MD [address] [place] [id number] Social History Tobacco Use Types Packs/Day Years [...] [facility] [address], [address] [place] [address] Alisa Kunz, [address] [place] [address] 12/23/2024 4:00 PM EDT Office Visit [facility] Medicine Specialties [address], [address] [place] [address] Lavern Shoemaker MD [address] [place] [address] 02/02/2025 8:40 AM EST Office Visit [facility] Internal Medicine [address], [address]rd [place] [address] Alisa Kunz, DO [address] [place] [address] 02/09/2025 12:20 PM EST Office Visit [facility] Endocrinology [address] [place] [address] Anne-Marie Kolb, CAR DROPPER [address] [place] [address] documented as of this encounter [...] documented as of this encounter Care Teams Protective Services Case Worker Relationship Specialty Start Date End Date Jackson Malave MD [address] [place] [address] PCP - General 07/21/20 03/12/21 Alisa Kunz, DO [address] [place] [address] PCP - General Internal Medicine 03/13/21 Anu Sen RN VALUE-BASED TRANSFORMATION PROGRAM [place] Registered Nurse Internal Medicine 08/22/21 09/24/21 Laura Albright LPN [employer] [address] TCM Nurse 08/30/22 09/27/22 Balwinder Vale [address] [place] [address] Community Health Worker [employer] 08/30/22 09/06/22 Kodi Bustos, DO [address] [phone] Surgeon Cardiothoracic Surgery 11/06/22 Sujit Arriola MD [address] [place] [address] Consulting Physician Pulmonary Disease 11/06/22 Laura Albright LPN VALUE-[employer] [place] [address] TCM Nurse 12/02/22 01/01/23 Sujit Reyes MD [address] [place] [address] Referring Physician 12/04/22 Zully Caldwell LPN VALUE-[place] [place] [address] TCM Nurse 02/03/23 03/05/23 Laura Albright LPN VALUE[employer] [address] TCM Nurse 08/05/23 09/04/23 Laura Albright LPN VALUE[employer] [address] TCM Nurse 02/17/24 03/18/24 Tanya Powell [address] [place] [address] [address] [place] [address] Registered Nurse 04/02/24 07/01/24 Sarah Reyes LPN TCM Nurse 05/27/24 06/26/24 Ekaterina Gómez Die Cast Supervisor [employer] 07/14/24 07/14/24 Zully Caldwell LPN VALUE[employer] [address] TCM Nurse 07/16/24 08/15/24 Ekaterina Gómez Die Cast Supervisor [employer] 08/16/24 08/16/24 Patricia Yañez LPN [facility] TCM Nurse 08/25/24 10/17/24 Zee Lazar DO [address] [place] [address] Resident 09/08/24 documented as of this encounter
--- OUTSIDE RECORDS SUMMARY | 2024-11-09 10:36 | XMS_ITS | Encounter Summary ---
Author Organization [facility] Address [address] [place] [address] Care Team Providers Care Roller Maker Name Role Phone ZeAlisa willett Torri DO Primary Care Provider [phone] Kodi Bustos DO Unavailable [phone] Sujit Arriola MD Unavailable [phone] Sujit Reyes MD Unavailable [phone] Zee Lazar DO Unavailable [phone] Encounter Details Date Type Department Care Team [...] Score 0 09/08/2024 [facility] - Occupational Stress Questionnaire Answer Date [...] drink first t anselmo in the morning (EYE-FOREST FIRE CONTROL OFFICER) to steady your nerves or to [...] [facility] Internal Medicine [address], 3rd [place] [address] Alisa Kunz, DO [address] [place] [address] 12/23/2024 4:00 PM EDT Office Visit [facility] Medicine Specialties [address], [address] [place] [address] Lavern Shoemaker MD [address] [place] [address] 02/02/2025 8:40 AM EST Office Visit [facility] Internal Medicine [address], [address] [place] [address] Alisa Kunz, DO [address] [facility] 304 [place] [address] 02/09/2025 12:20 PM EST Office Visit [facility] Endocrinology [address] [place] [address] Anne-Marie Kolb L, WATER METER READER 2195 [facility] 125 [place] [address] documented as of this encounter Visit Diagnoses [...] documented as of this encounter Care Teams Roller Maker Relationship Specialty Start Date End Date Alisa Kunz DO [address] [place] [address] PCP - General Internal Medicine 03/13/21 Kodi Bustos DO [address] [address] Surgeon Cardiothoracic Surgery 11/06/22 Sujit Arriola MD [address] [place] [address] Consulting Physician Pulmonary Disease 11/06/22 Sujit Reyes MD [address] [place] [address] Referring Physician 12/04/22 Zee Lazar DO [address] [place], [place] [phone] Resident 09/08/24 documented as of this encounter
--- OUTSIDE RECORDS SUMMARY | 2024-11-09 10:36 | XMS_ITS | Encounter Summary ---
Author Organization [facility] Address [address] [place] [address] Care Team Providers Care News Agent Name Role Phone ZeAlisa willett Torri DO Primary Care Provider [phone] Kodi Bustos DO Unavailable Sujit Arriola MD Unavailable [phone] Sujit Reyes MD Unavailable [phone] Patricia Yañez LPN Unavailable Unavailab Zee Lr DO Unavailable [phone] Reason for Referral * Consultation (Routine) - Authorized Specialty Diagnoses / Procedures Referred By Contac t Referred To Contact Pulmonary Disease Diagnoses Pleural effusion on right Art Olmos MD [address] [place] [address] Phone: tel: fax: Referral ID Status Reason Start Date Expiration Date Visits Requested Visits Authorized [id number] Authorized Specialty Services Required 09/08/2024 03/10/2026 1 1 Encounter Details Date Type Department Care Team (Late st Contact Info) Description 09/08/2024 Orders Only [facility] Medicine Specialties [address] [place] [address] Lavern Shoemaker MD [address] [place] [address] Pleural effusion on right (Primary Dx) Social [...] Recorded Patient Health Questionnaire-2 Score 0 09/08/2024 [facility] - Occupational Stress [...] in a nursing home (including now)? No 09/13/2024 CAGE ASSESSMENT [...] drink first t anselmo in the morning (EYE-TRADE SHOW SPECIALIST) to steady your nerves or to [...] (Past 1 Month) No 09/13/2024 8:00 AM JANET Lucia Rosenthal, EVITA 2. Non-Specific Active Suicidal Thoughts (Past 1 Month) No 09/13/2024 8:00 AM EDT Lucia Rosenthal, EVITA 6. Suicidal Behavior (Lifetime) No 09/13/2024 8:00 AM EDT Lucia Rosenthal, EVITA documented as of this encounter Plan of Treatment Upcoming Encounters Date Type Department Care Team (Late st Contact Info) Description 12/06/2024 11:20 AM EDT Office Visit [facility] Internal Medicine [address], [address]rd [place] [address] Alisa Kunz, DO [address] [place] [address] 12/23/2024 4:00 PM EDT Office [facility] Medicine Specialties [address], [address] [place] [address] Lavern Shoemaker MD [address] [place] [address] 02/02/2025 8:40 AM EST Office Visit [facility] Internal Medicine [address], [address]rd [place] [address] Alisa Kunz DO [address] [place] [address] 02/09/2025 12:20 PM EST Office Visit [facility] Endocrinology [address] [place] [address] Anne-Marie Kolb, PIPE SMOKER MACHINE OPERATOR 2[address] [facility] 125 [place] [address] Scheduled Referrals Name Type Priority [...] documented as of this encounter Care Teams News Agent Relationship Specialty Start Date End Date Alisa Kunz DO [address] [place] [address] PCP - General Internal Medicine 03/13/21 Kodi Bustos DO [address] [address] Surgeon Cardiothoracic Surgery 11/06/22 Sujit Arriola MD [address] [place] [address] Consulting Physician Pulmonary Disease 11/06/22 Sujit Reyes MD [address] [place] [address] Referring Physician 12/04/22 Patricia Yañez LPN [facility] TCM Nurse 08/25/24 10/17/24 Zee Lazar DO [address] [place] [id number] Resident 09/08/24 documented as of this encounter
--- OUTSIDE RECORDS SUMMARY | 2024-11-09 10:36 | XMS_ITS | Encounter Summary ---
Author Organization [facility] Address [address] [place] [address] Care Team Providers Care Lead Esthetician Name Role Phone Alisa Kunz DO Primary Care Provider [phone] Kodi Bustos DO Unavailable [phone] Sujit Arriola MD Unavailable [phone] Sujit Reyes MD Unavailable [phone] Patricia Yañez LPN Unavailable Unavailab Zee Lr DO Unavailable [phone] Reason for Visit * Reason Onset Date Comments HCN - Patient Message 10/11/2024 questions Encounter Details Date Type Department Care Team (Late st Contact Info) Description 10/11/2024 Telephone [facility] Otol[facility] [address], [address]rd [place] [address] Chris Pepe MD [address] [place] [address] HCN - Patient Message (questions) [...] Patient Health Questionnaire-2 Score 0 09/08/2024 [facility] of Occupat ional [...] drink first t anselmo in the morning (EYE-BIRD RAISER) to steady your nerves or to get [...] Notes * Telephone Encounter - Britt Thompson - 10/11/2024 8:19 AM EDT Patient Phone Message Reason for Call: Pt requesting a return call regarding follow up questions she has from last . Best contact number and optimal time of day to reach caller: [phone] Note: Please do not reply to this message. Follow-up communication and further actions as a result of this message need to be communicated with the patient directly, if the patient is not active onMyChart. If the patient is active on MyChart, they will receive notification of the communication/outcome via [employer]. documented in this encounter Plan of Treatment Upcoming Encounters Date Type Department Care Team (Late st Contact Info) Description 12/06/2024 11:20 AM EDT Office Visit [facility] Internal Medicine [address], 3rd [place] [address] Alisa Kunz, [address] [place] [address] 12/23/2024 4:00 PM EDT Office Visit [facility] Medicine Specialties [address], 2nd [place] [address] Lavern Shoemaker MD [address] [place], [place] [address] 02/02/2025 8:40 AM EST Office Visit [facility] Internal Medicine [address], [address]rd [place] [address] Alisa Kunz DO [address] [place] [address] 02/09/2025 12:20 PM EST Office Visit [facility] Endocrinology [address] [place] [address] Anne-Marie Kolb, MOBILE UI/UX DESIGNER 2[address] [facility] [address] [place] [address] documented as of this encounter [...] as of this encounter Care Teams Lead Esthetician Relationship Specialty Start Date End Date Alisa Kunz DO [address] [place] [address] PCP - General Internal Medicine 03/13/21 Kodi Bustos DO [address] [address] Surgeon Cardiothoracic Surgery 11/06/22 Sujit Arriola MD [address] [place] [address] Consulting Physician Pulmonary Disease 11/06/22 Sujit Reyes MD [address] [place] [address] Referring Physician 12/04/22 Patricia Yañez LPN [facility] TCM Nurse 08/25/24 10/17/24 Zee Lazar DO [address] [place] [address] Resident 09/08/24 documented as of this encounter
--- OUTSIDE RECORDS SUMMARY | 2024-11-09 10:36 | XMS_ITS ---
Author Organization [facility] Address [address] [place] [address] Care Team Providers Care Grades 6 Through 8 Teacher Name Role Phone Alisa Kunz Torri DO Primary Care Provider [phone] Kodi Bustos DO Unavailable [phone] Sujit Arriola MD Unavailable [phone] Sujit Reyes MD Unavailable [phone] Zee Lazar DO Unavailable [phone] Transitional Care Management Status:Closed (Closed) Start date:09/17/2024 Enrollment date:09/17/2024 Enrollment reason:Identified using hospital discharge data End date:10/17/2024 Close reason:Patient graduated Overview This episode type is for outpatient care managers enrolling patients in the [facility] Transitional Care Management program. Continued Care and Services Coordination
--- OUTSIDE RECORDS SUMMARY | 2024-11-09 10:36 | XMS_ITS | Encounter Summary ---
Author Organization [facility] Address [address] [place] [address] Care Team Providers Care Toe Lining Closer Name Role Phone Alisa Kunz DO Primary Care Provider Kodi Bustos DO Unavailable [phone] Sujit Arriola MD Unavailable [phone] Sujit Reyes MD Unavailable [phone] Patricia Yañez LPN Unavailable Unavailab Zee Lr DO Unavailable [phone] Encounter Details Date Type Department Care Team [...] 09/08/2024 [facility] - [...] drink first t anselmo in the morning (EYE-TELEHEALTH NURSE EDUCATOR) to steady your nerves or to get [...] Description 12/06/2024 11:20 AM EDT Office Visit [facility] Internal Medicine [address], 3rd [place] [address] Alisa Kunz, DO [address] [place] [address] 12/23/2024 4:00 PM EDT Office Visit [facility] Medicine Specialties [address] 2nd [place] [address] Lavern Shoemaker MD [address] [place] [address] 02/02/2025 8:40 AM EST Office Visit [facility] Internal Medicine [address], 3rd [place] [address] Alisa Kunz, DO [address] [place] [address] 02/09/2025 12:20 PM EST Office Visit [facility] Endocrinology [address] [place] [address] Anne-Marie Kolb, WHOLESALE ACCOUNT MANAGER [address] [facility] [address] [place] [address] documented as of this encounter Visit Diagnoses [...] documented as of this encounter Care Teams Toe Lining Closer Relationship Specialty Start Date End Date Alisa Kuzn DO [address] [place] [address] PCP - General Internal Medicine 03/13/21 Kodi Bustos, [address] [address] Surgeon Cardiothoracic Surgery 11/06/22 Sujit Arriola MD [address] [place] [address] Consulting Physician Pulmonary Disease 11/06/22 Sujit Reyes MD [address] [place] [address] Referring Physician 12/04/22 Patricia Yañez, CLINIC LICENSED PRACTICAL NURSE [facility] TCM Nurse 08/25/24 10/17/24 Zee Lazar DO [address] [place], [place] [address] Resident 09/08/24 documented as of this encounter
--- OUTSIDE RECORDS SUMMARY | 2024-11-09 10:36 | XMS_ITS | Encounter Summary ---
Author Organization [facility] Address [address] [place] [address] Care Team Providers Care Rate Engineer Name Role Phone Alisa Kunz DO Primary Care Provider Kodi Bustos DO Unavailable [phone] Sujit Arriola MD Unavailable [phone] Sujit Reyes MD Unavailable [phone] Patricia Yañez LPN Unavailable Unavailab Zee Lr DO Unavailable [phone] Encounter Details Date Type Department Care Team (Late st Contact Info) Description 09/09/2024 Results Follow-Up [facility] Internal Medicine [address], [address]rd [place] [address] Zee Lazar DO [address] [place], [place] [id number] Social History Tobacco Use Types Packs/Day Years [...] living in a fdc (including now)? No 09/13/2024 CAGE ASSESSMENT Answer [...] drink first t anselmo in the morning (EYE-CASH CONTROL SPECIALIST) to steady your nerves or to get rid of a hangover? 0 08/14/2024 CAGE Questionnaire Score 0 025 Utilities Answer Date Recorded In the past 12 months has th e electric, gas, oil, or water [employer] threatened to shut off services in your [...] Description 12/06/2024 11:20 AM EDT Office Visit [facility] Internal Medicine [address]rd [place] [address] Alisa Kunz, [address] [place] [address] 12/23/2024 4:00 PM EDT Office Visit [facility] Medicine Specialties [address]nd [place] [address] Lavern Shoemaker MD [address] [place] [address] 02/02/2025 8:40 AM EST Office Visit [facility] Internal Medicine [address], 3rd [place] [address] Alisa Kunz DO [address] [place] [address] 02/09/2025 12:20 PM EST Office Visit [facility] Endocrinology [address] [place] [address] Anne-Marie Kolb, DISC RULER OPERATOR [address] [facility] [address] [place] [address] documented as of this encounter [...] documented as of this encounter Care Teams Rate Engineer Relationship Specialty Start Date End Date Alisa Kunz DO [address] [place] [address] PCP - General Internal Medicine 03/13/21 Kodi Bustos DO [address] [place] [address] Surgeon Cardiothoracic Surgery 11/06/22 Sujit Arriola MD [address] [place] [address] Consulting Physician Pulmonary Disease 11/06/22 Sujit Reyes MD [address] [place] [address] Referring Physician 12/04/22 Patricia Yañez, [facility] TCM Nurse 08/25/24 10/17/24 Zee Lazar DO [address] [place] [id number] Resident 09/08/24 documented as of this encounter
--- OUTSIDE RECORDS SUMMARY | 2024-11-09 10:36 | XMS_ITS | Encounter Summary ---
Author Organization [facility] Address [address] [place] [address] Care Team Providers Care Crm Coordinator Name Role Phone ZeNitin willettgricel Wild DO Primary Care Provider Kodi Bustos DO Unavailable [phone] Sujit Arriola MD Unavailable [phone] Sujit Reyes MD Unavailable [phone] Patricia Yañez LPN Unavailable Unavailab Zee Lr DO Unavailable [phone] Encounter Details Date Type Department Care Team (Late st Contact Info) Description 09/02/2024 Telephone [facility] Endocrinology [address] [place] [address] Anne-Marie Kolb L, ETHYLBENZENE CONVERTER HELPER 2[address] [facility] [address] [place] [address] Social History Tobacco Use Types [...] often do you attend chur ch or mormonism services? 1 to 4 times per year [...] drink first t anselmo in the morning (EYE-FAMILY AND CONSUMER SCIENCES TEACHER) to steady your nerves or to [...] [facility] [address], 3rd [place] [address] Alisa Kunz, DO [address] [address] 12/23/2024 4:00 PM EDT Office Visit [facility] Medicine Specialties [address], 2nd [place] [address] Lavern Shoemaker MD [address] [place], [place] [phone] 02/02/2025 8:40 AM EST Office [facility] Internal Medicine [address], 3rd [place] [address] Alisa Kunz, DO [address] [facility] [address] [place] [address] 02/09/2025 12:20 PM EST Office Visit [facility] Endocrinology [address] [place] [address] Anne-Marie Kolb L, ETHYLBENZENE CONVERTER HELPER [address] [place] [address] documented as of this encounter Visit Diagnoses [...] documented as of this encounter Care Teams Crm Coordinator Relationship Specialty Start Date End Date Alisa Kunz DO [address] [place] [address] PCP - General Internal Medicine 03/13/21 Kodi Bustos DO [address] [place] [address] Surgeon Cardiothoracic Surgery 11/06/22 Sujit Arriola MD [address] [place] [address] Consulting Physician Pulmonary Disease 11/06/22 Sujit Reyes MD [address] [place] [address] Referring Physician 12/04/22 Patricia Yañez LPN [facility] TCM Nurse 08/25/24 10/17/24 Zee Lazar DO [address] [place], [place] [phone] Resident 09/08/24 documented as of this encounter
--- OUTSIDE RECORDS SUMMARY | 2024-11-09 10:36 | XMS_ITS | Encounter Summary ---
Author Organization Healthcare Address [address] [place] [address] Care Team Providers Care Customer Service Clerk Name Role Phone Alisa Kunz DO Primary Care Provider Kodi Bustos DO Unavailable [phone] Sujit Arriola MD Unavailable [phone] Sujit Reyes MD Unavailable [phone] Patricia Yañez LPN Unavailable Unavailab Zee Lr DO Unavailable [phone] Encounter Details Date Type Department Care Team (Late st Contact Info) Description 10/14/2024 Results [facility]-Up [place] [facility] [address] [place] [address] Cristian Zimmer MD [address] [place] [address] Social History Tobacco Use Types [...] Score 0 09/08/2024 [facility] - Occupational Stress Questionnaire Answer [...] drink first t anselmo in the morning (EYE-CHUTE LOADER) to steady your nerves or to get [...] [facility] Internal Medicine [address]rd [place] [address] Alisa Kunz DO [address] [place] [address] 12/23/2024 4:00 PM EDT Office Visit [place] [facility] Medicine Specialties [address] [place] [address] Lavern Shoemaker MD [address] [place] [address] 02/02/2025 8:40 AM EST Office Visit [facility] Internal Medicine [address]rd [place] [address] Alisa Kunz DO [address] [place] [address] 02/09/2025 12:20 PM EST Office Visit [facility] Endocrinology [address] [place] [address] Anne-Marie Kolb L, AGILE JAVA DEVELOPER [address] [place] [address] documented as of this [...] as of this encounter Care Teams Customer Service Clerk Relationship Specialty Start Date End Date Alisa Kunz DO [address] [place] [address] PCP - General Internal Medicine 03/13/21 Kodi Bustos DO [address] [place] [phone] Surgeon Cardiothoracic Surgery 11/06/22 Sujit Arriola MD [address] [place] [address] Consulting Physician Pulmonary Disease 11/06/22 Sujit Reyes MD [address] [place] [address] Referring Physician 12/04/22 Patricia Yañez LPN [facility] TCM Nurse 08/25/24 10/17/24 Zee Lazar DO [address] [place] [address] Resident 09/08/24 documented as of this encounter
--- OUTSIDE RECORDS SUMMARY | 2024-11-09 10:37 | XMS_ITS | Encounter Summary ---
Author Organization [facility] ystem Address [address] [place] [address] Care Team Providers Care Pantograph I Engraver Name Role Phone Alisa Kunz Primary Care Provider +1- [phone] Encounter Details Date Type Department Care Team (Late st Contact Info) Description 10/19/2024 Telephone [facility] CARDIOLOGY [address] [facility] [address] [place] [address] Naveen Velasquez MD [address] [place] [address] Social History Tobacco Use Types [...] Info) Description 11/28/2024 7:45 PM EDT Appointment [facility] SLEEP LAB [address] [place] [address] 12/02/2024 3:30 PM EDT Office Visit [facility] CARDIOLOGY [address] [facility] [place] [address] Sujit Reyes MD [address] [place], [place] [address] 01/19/2025 1:45 PM EST Office Visit [facility] CARDIOLOGY [address] [facility] [address] [place] [address] Naveen Velasquez MD [address] [place], [place] [address] documented as of this encounter Visit Diagnoses Not on filedocumented in this encounter Care Teams Pantograph I Engraver Relationship Specialty Start Date End Date Alisa Kunz DO [address] [place] [address] PCP - General Internal Medicine 04/26/21 documented as of this encounter
--- OUTSIDE RECORDS SUMMARY | 2024-11-09 10:37 | XMS_ITS | Encounter Summary ---
[facility] Address [address] [place] [address] Care Team Providers Care General Manager Food Name Role Phone Alisa Kunz Primary Care Provider +1- [phone] Encounter Details Date Type Department Care Team [...] [facility] SLEEP LAB [address] [facility] [address] [place] [address] 12/02/2024 3:30 PM EDT Office Visit [facility] CARDIOLOGY [address] [facility] [place] [place] [address] Sujit Reyes MD [address] [facility] [address] [place] [address] 01/19/2025 1:45 PM EST Office Visit [facility] CARDIOLOGY [address] [facility] [address] [place] [address] Naveen Velasquez MD [address] [facility] [address] [place] [address] documented as of this encounter Visit Diagnoses Not on filedocumented in this encounter Care Teams General Manager Food Relationship Specialty Start Date End Date Alisa Kunz DO [address] [place], [place] [address] PCP - General Internal Medicine 04/26/21 documented as of this encounter
--- OUTSIDE RECORDS SUMMARY | 2024-11-09 10:37 | XMS_ITS | Encounter Summary ---
[facility] Organization [facility] Address [address] [place] [address] Care Team Providers Care Basket Braider Name Role Phone Alisa Kunz Primary Care Provider +1- [phone] Encounter Details Date Type Department Care Team (Latest Contact Info) Description 09/28/2024 Anticoagulation Visit [facility]ICO[facility] [address] [facility] [address] [place] [address] Yancy Viveros, Stage Setting Painter Apprentice Left ventricular apical thrombus (Primary Dx) Social [...] this encounter Progress Notes * Yancy Viveros, Stage Setting Painter Apprentice - 09/28/2024 3:37 PM EDT [facility] Anticoagulation Clinic Progress Note Patient Demographics Method of INR reporting: [employer] Home Monitor SN [id number] Estimated OOP Cost: Indication: Left Ventricular Atypical Thrombus (~2012) Referring Provider Nanette Pryor APRN Reason patient is not on a DOAC: Goal INR: 2-3 Warfarin Start Date ~02/12/24 Reason patient is not on home monitor: [id number]: Planned Duration of Therapy Indefinite Relevant medical [...] 1.4 - Clinic 1.32 - ELECTRICAL LINE SPLICER 2.8 2.0 Notes Admitted [facility] Rec'd 05/27 [...] Verbal release: Signed 03/05/24 Preferred contact number: [phone] Alternative contact number(s): [phone] (Doron) [phone] (Ruthie) [phone] (Madyson) Patient Appropriate for WarfNoCall ? No [...] questions at this time. Yancy Viveros CPhT, RUST 15:46 EDT 09/28/2024 IReema, PharmD, have reviewed the note in full and agree with the assessment and plan. 09/28/24 15:55 EDT documented in this encounter Plan of Treatment Upcoming Encounters Date Type Department Care Team (Late st Contact Info) Description 11/28/2024 7:45 PM EDT Appointment [facility] SLEEP LAB [address] [facility] [address] [place] [address] 12/02/2024 3:30 PM EDT Office Visit [facility] CARDIOLOGY [address] [place] [address] Sujit Reyes MD [address] [facility] [address] [place] [address] 01/19/2025 1:45 PM EST Office Visit [facility] CARDIOLOGY [address] [facility] [address] [place] [address] Naveen Velasquez MD [address] [facility] [address] [place] [address] documented as of this encounter Visit Diagnoses Diagnosis Left ventricular apical thrombus- Primary documented in this encounter Care Teams Basket Braider Relationship Specialty Start Date End Date Alisa Kunz DO [address] [facility] [address] [place], [place] [address] PCP - General Internal Medicine 04/26/21 documented as of this encounter
--- OUTSIDE RECORDS SUMMARY | 2024-11-09 10:37 | XMS_ITS | Encounter Summary ---
Author Organization [facility] Address [address] [place] [address] Care Team Providers Care Car Framer Name Role Phone Alisa Kunz Primary Care Provider +1- [phone] Encounter Details Date Type Department Care Team (Late st Contact Info) Description 09/21/2024 Telephone [facility] ANTICO[facility]ULATION CLINIC [address] [facility] [address] [place] [address] Marj Delgado, PharmD [address] [place] [address] Social History Tobacco Use Types [...] AM EDT Shown, Jodie Meza RN * [place] Suicide Severity Rating Scale (Screener/Recent Self-Report) Question [...] Info) Description 11/28/2024 7:45 PM EDT Appointment [facility] SLEEP LAB [address] [facility] [address] [place] [address] 12/02/2024 3:30 PM EDT Office Visit [facility] CARDIOLOGY [address] [place] [address] Sujit Reyes MD [address] [facility] [address] [place] [address] 01/19/2025 1:45 PM EST Office Visit [facility] CARDIOLOGY [address] [facility] [address] [place] [address] Naveen Velasquez MD [address] [facility] [address] [place] [address] documented as of this encounter Visit Diagnoses Not on filedocumented in this encounter Care Teams Car Framer Relationship Specialty Start Date End Date Alisa Kunz DO [address] [place], [place] [address] PCP - General Internal Medicine 04/26/21 documented as of this encounter
--- OUTSIDE RECORDS SUMMARY | 2024-11-09 10:37 | XMS_ITS | Encounter Summary ---
[facility] [address] [place] [address] Care Team Providers Care Meter Setter Name Role Phone Alisa Kunz Primary Care Provider +1- [phone] Encounter Details Date Type Department Care Team [...] Info) Description 11/28/2024 7:45 PM EDT Appointment [facility] SLEEP LAB [address] [facility] [address] [place] [address] 12/02/2024 3:30 PM EDT Office Visit [facility] CARDIOLOGY [address] [facility] [place] [address] Sujit Reyes MD [address] [facility] [address] [place] [address] 01/19/2025 1:45 PM EST Office Visit [facility] CARDIOLOGY [address] [facility] [address] [place] [address] Naveen Velasquez MD [address] [facility] [address] [place] [address] documented as of this encounter Visit Diagnoses Not on filedocumented in this encounter Care Teams Meter Setter Relationship Specialty Start Date End Date Alisa Kunz DO [address] [place], [place] [address] PCP - General Internal Medicine 04/26/21 documented as of this encounter
--- OUTSIDE RECORDS SUMMARY | 2024-11-09 10:37 | XMS_ITS | Encounter Summary ---
Author Organization [facility] ystem Address [address] [place] [address] Care Team Providers Care Binder Roller Name Role Phone Alisa uKnz Primary Care Provider +1- [phone] Reason for Visit * Reason Onset Date Comments - PPW REQUEST 10/04/2024 Encounter Details Date Type Department Care Team (Late st Contact Info) Description 10/04/2024 Telephone [facility] CARDIOLOGY [address] [facility] [address] [place] [address] Sujit Reyes MD [address] [facility] [address] [facility] [address] [place] [id number] - PPW REQUEST Social History Tobacco Use [...] Tulio Relationship: Self Best call back number: [phone] What form or medical record are you requesting: INR Who is requesting this form or medical record from you: PATIENT How would you like to receive the form or medical records (pick-up, mail, fax): FAX If fax, what is the fax number: [phone] Timeframe paperwork needed: [place] Additional notes: ORDERS FOR INR documented in this encounter Plan of Treatment Upcoming Encounters Date Type Department Care Team (Late st Contact Info) Description 11/28/2024 7:45 PM EDT Appointment [facility] SLEEP LAB [address] [place] [address] 12/02/2024 3:30 PM EDT Office Visit [facility] CARDIOLOGY [address] [place] [address] Sujit Reyes MD [address] [facility] [address] [place], [place] [address] 01/19/2025 1:45 PM EST Office Visit [facility] CARDIOLOGY [address] [place] [address] Naveen Velasquez MD [address] [facility] [address] [place] [address] documented as of this encounter Visit Diagnoses Not on filedocumented in this encounter Care Teams Binder Roller Relationship Specialty Start Date End Date Alisa Kunz DO [address] [place] [address] PCP - General Internal Medicine 04/26/21 documented as of this encounter
--- OUTSIDE RECORDS SUMMARY | 2024-11-09 10:37 | XMS_ITS | Encounter Summary ---
[facility] Address [address] [place] [address] Care Team Providers Care Mixing House Operator Name Role Phone Alisa Kunz Primary Care Provider +1- [phone] Encounter Details Date Type Department Care Team [...] Info) Description 11/28/2024 7:45 PM EDT Appointment [facility] [address] [facility] [address] [place] [address] 12/02/2024 3:30 PM EDT Office Visit [facility] CARDIOLOGY [address] [facility] [place] [address] Sujit Reyes MD [address] [facility] [address] [place] [address] 01/19/2025 1:45 PM EST Office Visit [facility] CARDIOLOGY [address] [facility] [address] [place] [address] Naveen Velasquez MD [address] [facility] [address] [place] [address] documented as of this encounter Visit Diagnoses Not on filedocumented in this encounter Care Teams Mixing House Operator Relationship Specialty Start Date End Date Alisa Kunz DO [address] [place], [place] [address] PCP - General Internal Medicine 04/26/21 documented as of this encounter
--- OUTSIDE RECORDS SUMMARY | 2024-11-09 10:37 | XMS_ITS | Encounter Summary ---
Author [facility] Address [address] [place] [address] Care Team Providers Care Mat Repairer Name Role Phone Alisa Kunz Primary Care Provider +1- [phone] Encounter Details Date Type Department Care Team (Late st Contact Info) Description 09/20/2024 Telephone [facility] ANTICO[facility]ULATION CL[facility]IC [address] [facility] [address] [place] [address] Marj Delgado, PharmD [address] [place] [address] Social History Tobacco Use Types [...] Info) Description 11/28/2024 7:45 PM EDT Appointment [facility] SLEEP LAB [address] [place] [address] 12/02/2024 3:30 PM EDT Office Visit [facility] CARDIOLOGY [address] [facility] [place] [place] [address] Sujit Reyes MD [address] [place] [address] 01/19/2025 1:45 PM EST Office Visit [facility] CARDIOLOGY [address] [place] [address] Naveen Velasquez MD [address] [facility] [address] [place] [address] documented as of this encounter Visit Diagnoses Not on filedocumented in this encounter Care Teams Mat Repairer Relationship Specialty Start Date End Date Alisa Kunz DO [address] [facility] [address] [place], [place] [address] PCP - General Internal Medicine 04/26/21 documented as of this encounter
--- OUTSIDE RECORDS SUMMARY | 2024-11-09 10:37 | XMS_ITS | Encounter Summary ---
Author Organization [facility] Address [address] [place] [address] Care Team Providers Care Manager Configuration Name Role Phone Alisa Kunz Primary Care Provider +1- [phone] Encounter Details Date Type Department Care Team (Latest Contact Info) Description 10/19/2024 Anticoagulation Visit [facility] ANT[facility]ULATION [facility]IC [address] [facility] [address] [place] [address] Mike Mariee, Clinical Account Specialist Left ventricular apical thrombus (Primary Dx) Social [...] this encounter Progress Notes * Mike Mariee, Clinical Account Specialist - 10/19/2024 10:32 AM EDT [facility] Anticoagulation Clinic Progress Note Patient Demographics Method of INR reporting: [employer] Home Monitor SN [id number] Estimated OOP Cost: Indication: Left Ventricular Atypical Thrombus (~2012) Referring Provider Nanette Pryor APRN Reason patient is not on a DOAC: Goal INR: 2-3 Warfarin Start Date ~02/12/24 Reason patient is not on home monitor: [id number]: Planned Duration of Therapy Indefinite Relevant medical [...] - HM 1.4 - Clinic 1.32 - QUALITY ASSURANCE MONITOR 2.8 2.0 Notes Admitted [facility] Rec'd 05/27 [...] Verbal release: Signed 03/05/24 Preferred contact number: [phone] Alternative contact number(s): [phone] (Doron) [phone] (Ruthie) [phone] (Madyson) Patient Appropriate for WarfNoCall ? No [...] complaints Comments: Patient mentions difficulty communicating with [place], is waiting for her daughter tohelp her with the portal. Patient believes she took 7.5 8/5 and 5 mg all other days. Patient statescardioversion / was cancelled. Patient has completed Levofloxacin and is back on mycophenolate. Patient reports having a serving of black eyed peas and a serving of kale this past week. Appt consult ation to discuss pleural drain 10/28. All other findings negative per patient. Assessment and Plan: INR was therapeutic at 2.14 (2.0-3.0). Per Reema Beal, IrajD instructed patient to take warfarin7.5 mg today and warfarin 5 mg all other days until recheck. Recheck INR in 1 week, 10/26. Patient prefers testing Tuesdays. Verbal and written information provided. Michelle Felipe expresses understanding by teach back and has no further questions at this time. Mike Mariee [facility] 10/19/2024 10:54 EDT I, Reema Beal, IrajD, have reviewed the note in full and agree with the assessment and plan. 10/19/24 11:21 EDT documented in this encounter Plan of Treatment Upcoming Encounters Date Type Department Care Team (Late st Contact Info) Description 11/28/2024 7:45 PM EDT Appointment [facility] SLEEP LAB [address] [place] [address] 12/02/2024 3:30 PM EDT Office Visit [facility] CARDIOLOGY [address] [place] [address] Sujit Reyes MD [address] [place] [address] 01/19/2025 1:45 PM EST Office Visit [facility] CARDIOLOGY [address] [place] [address] Naveen Velasquez MD [address] [place] [address] documented as of this encounter Procedures Procedure Name Priority Date/Time Associated Diagnosis Comments SCANNED - LABS 10/19/2024 PROTIME-INR Routine 10/18/2024 documented in this encounter Results * LABS SCANNED (10/19/2024) [facility] Onbase LAB BLOOD ORDERABLES Final Re sult * Protime-INR (10/18/2024) INR 2.14 Blood 10/18/2024 [facility] Provider LAB BLOOD ORDERABLES Edit ed Result - Final documented in this encounter Visit Diagnoses Diagnosis Left ventricular apical thrombus- Primary documented in this encounter Care Teams Manager Configuration Relationship Specialty Start Date End Date Alisa Kunz DO [address] [place] [address] PCP - General Internal Medicine 04/26/21 documented as of this encounter
--- OUTSIDE RECORDS SUMMARY | 2024-11-09 10:37 | XMS_ITS | Encounter Summary ---
[facility] Address [address] [place] [address] Care Team Providers Care Sales Office Coordinator Name Role Phone Alisa Kunz Primary Care Provider +1- [phone] Encounter Details Date Type Department Care Team [...] 9:45 AM EDT Tanya Boyce RN * [place] Suicide Severity Rating Scale (Screener/Recent Self-Report) Question Answer Date of Assessment Author 6. Suicidal Behavior (Lifetime) No 09/24/2024 9:45 AM EDT Cassandra Parisi RN documented as of this encounter Plan of Treatment Upcoming Encounters Date Type Department Care Team (Late st Contact Info) Description 11/28/2024 7:45 PM EDT Appointment [facility] [address] [place] [address] 12/02/2024 3:30 PM EDT Office Visit [facility] CARDIOLOGY [address] [place] [address] Sujit Reyes MD [address] [place] [address] 01/19/2025 1:45 PM EST Office Visit [facility] CARDIOLOG[facility] [address] [place] [address] Naveen Velasquez MD [address] [place] [address] documented as of this encounter Visit Diagnoses Not on filedocumented in this encounter Care Teams Sales Office Coordinator Relationship Specialty Start Date End Date Alisa Kunz DO [address] [place], [place] [address] PCP - General Internal Medicine 04/26/21 documented as of this encounter
--- OUTSIDE RECORDS SUMMARY | 2024-11-09 10:37 | XMS_ITS | Encounter Summary ---
Author Organization [facility] Address [address] [place] [address] Care Team Providers Care Shortage Worker Name Role Phone Alisa Kunz DO Primary Care Provider [phone] Laura Albright CHIEF OPERATING ENGINEER Unavailable Unavailable Balwinder Vale Unavailable Unavailable Kodi Bustos DO Unavailable [phone] Sujit Arriola MD Unavailable [phone] HatLaura navas LPN Unavailable Unavailable Sujit Reyes MD Unavailable [phone] Zully Caldwell CHIEF OPERATING ENGINEER Unavailable Unavailable HatLaura navas CHIEF OPERATING ENGINEER Unavailable Unavailable HatLaura navas CHIEF OPERATING ENGINEER Unavailable Unavailable Tanya Powell Unavailable [phone] Sarah Reyes CHIEF OPERATING ENGINEER Unavailable Unavailable Ekaterina Gómez Unavailable Unavailable Zully Caldwell CHIEF OPERATING ENGINEER Unavailable Unavailable Ekaterina Gómez Unavailable Unavailable Patricia Yañez CHIEF OPERATING ENGINEER Unavailable Unavailab Zee Lr DO Unavailable [phone] Reason for Visit * Reason Comments Med Refill Encounter Details Date Type Department Care Team (Late st Contact Info) Description 12/10/2021 Refill [facility] Internal Medicine [address] [place] [address] Alisa Kunz DO [address] [place] [address] Social History Tobacco Use Types Packs/Day Years [...] Description 12/06/2024 11:20 AM EDT Office Visit [facility] Internal Medicine [address] [place] [address] Alisa Kunz DO [address] [place] [address] 12/23/2024 4:00 PM EDT Office Visit [facility] Medicine Specialties [address] [place] [address] Lavern Shoemaker MD [address] [place] [address] 02/02/2025 8:40 AM EST Office Visit [facility] Internal Medicine [address] [place] [address] Alisa Kunz, DO [address] [place] [address] 02/09/2025 12:20 PM EST Office Visit [facility] Endocrinology [address] [place] [address] Anne-Marie Kolb, DIRECTOR TRADE [address] [facility] [address] [place] [address] documented as of this encounter [...] documented as of this encounter Care Teams Shortage Worker Relationship Specialty Start Date End Date Alisa Kunz DO [address] [place] [address] PCP - General Internal Medicine 03/13/21 Laura Albright LPN VALUE-[employer]ED [place] [address] TCM Nurse 08/30/22 09/27/22 Balwinder Vale [address] [address] Community Health Worker Food Technology Teacher 08/30/22 09/06/22 Kodi Bustos DO [address] [address] Surgeon Cardiothoracic Surgery 11/06/22 Sujit Arriola MD [address] [place] [address] Consulting Physician Pulmonary Disease 11/06/22 Laura Albright LPN [employer] [place] [address] TCM Nurse 12/02/22 01/01/23 Sujit Reyes MD [address] [place] [address] Referring Physician 12/04/22 Zully Caldwell LPN [employer] [place] [address] TCM Nurse 02/03/23 03/05/23 Laura Albright LPN [employer] [place] [address] TCM Nurse 08/05/23 09/04/23 Laura Albright LPN [employer]ED [place] [address] TCM Nurse 02/17/24 03/18/24 Tanya Powell [address] [facility] 125 [place] [address] Registered Nurse 04/02/24 07/01/24 Sarah Reyes LPN TCM Nurse 05/27/24 06/26/24 Ekaterina Gómez Tanning Wheel Operator Food Technology Teacher 07/14/24 07/14/24 Zully Caldwell LPN [employer] [place] [address] TCM Nurse 07/16/24 08/15/24 Ekaterina Gómez Tanning Wheel Operator Food Technology Teacher 08/16/24 08/16/24 Patricia Yañez LPN [facility] TCM Nurse 08/25/24 10/17/24 Zee Lazar DO [address] [place] [address] Resident 09/08/24 documented as of this encounter
--- OUTSIDE RECORDS SUMMARY | 2024-11-09 10:37 | XMS_ITS | Encounter Summary ---
Author Organization [facility] Address [address] [place] [address] Care Team Providers Care A Auxiliary Name Role Phone Alisa Kunz Primary Care Provider [phone] Reason for Visit * Reason Onset Date Comments Results 09/28/2024 Encounter Details Date Type Department Care Team (Late st Contact Info) Description 09/28/2024 Telephone [facility] [address] [facility] [address] [place] [address] Sujit Reyes MD [address] [facility] [address] [facility] [address] [place] [address] Results Social History Tobacco Use [...] 10:26 AM EDT Cece Prieto RN * [place] Suicide Severity Rating Scale (Screener/Recent Self-Report) Question Answer Date of Assessment Author 6. Suicidal Behavior (Lifetime) No 10:26 AM EDT Cece Prieto RN documented as of this encounter Miscellaneous Notes * Telephone Encounter - Nba Smtih RegSched Rep - 09/28/2024 11:32 AM EDT Caller: Michelle Felipe Relationship: Self Best call back number: [phone] What is the best time to reach [...] 11/28/2024 7:45 PM EDT Appointment [facility]EP [facility] [address] [facility] [address] [place] [address] 12/02/2024 3:30 PM EDT Office Visit [facility] [address] [place] [address] [place] [phone] Sujit Reyes MD [address] [facility] [address] [place] [address] 01/19/2025 1:45 PM EST Office Visit [facility] [address] [place] [address] Naveen Velasquez MD [address] [facility] [address] [place] [address] documented as of this encounter Visit Diagnoses Not on filedocumented in this encounter Care Teams A Auxiliary Relationship Specialty Start Date End Date Alisa Kunz DO [address] [place], [place] [id number] PCP - General Internal Medicine 04/26/21 documented as of this encounter
--- OUTSIDE RECORDS SUMMARY | 2024-11-09 10:37 | XMS_ITS | Encounter Summary ---
Author Organization [facility] Address [address] [place] [address] Care Team Providers Care Web Content Producer Name Role Phone Alisa Kunz DO Primary Care Provider [phone] Kodi Bustos DO Unavailable [phone] Sujit Arriola MD Unavailable [phone] Sujit Reyes MD Unavailable [phone] Zee Lazar DO Unavailable [phone] Encounter Details Date Type Department Care Team (Late st Contact Info) Description 11/05/2024 Telephone [facility] Internal Medicine [address] [place] [address] Alisa Kunz DO [address] [place] [address] Social History Tobacco Use Types [...] often do you attend chur ch or mosque services? 1 to 4 times [...] Recorded Patient Health Questionnaire-2 Score 0 10/27/2024 [facility] - [...] drink first t anselmo in the morning (EYE-STITCH BURNISHER) to steady your nerves or to get [...] * Telephone Encounter - Shannen Stephens - 11/05/2024 9:40 AM EDT Called gave vo * Telephone Encounter - Sonam Pretty - 11/05/2024 9:33 AM EDT Clinical Concern/Question Reason for Call: Shabana calling from [facility] asking for verbal orders for re certification for wound care. [facility] advise. Thank you! Best contact number: Other: [phone] Optimal time of day to reach caller: [...] [facility] Internal Medicine [address] [place] [address] Alisa Kunz, [address] [place] [address] 12/23/2024 4:00 PM EDT Office Visit [facility] Medicine Specialties [address] [place] [address] Lavern Shoemaker MD [address] [place] [id number] 02/02/2025 8:40 AM EST Office Visit [facility] Internal Medicine [address] [place] [address] Alisa Kunz DO [address] [place] [address] 02/09/2025 12:20 PM EST Office Visit [facility] Endocrinology [address] [place] [address] Anne-Marie Kolb, COMPOSITION MIXER [address] [facility] [address] [place] [address] documented as of this encounter [...] as of this encounter Care Teams Web Content Producer Relationship Specialty Start Date End Date Alisa Kunz DO [address] [place] [address] PCP - General Internal Medicine 03/13/21 Kodi Bustos DO [address] [place] [phone] Surgeon Cardiothoracic Surgery 11/06/22 Sujit Arriola MD [address] [place] [address] Consulting Physician Pulmonary Disease 11/06/22 Sujit Reyes MD [address] [facility] [place] [address] Referring Physician 12/04/22 Zee Lazar DO [address] [place] [address] Resident 09/08/24 documented as of this encounter
--- OUTSIDE RECORDS SUMMARY | 2024-11-09 10:37 | XMS_ITS | Encounter Summary ---
[facility] Address [address] [place] [address] Care Team Providers Care Inpatient Care Manager Rn Name Role Phone Alisa Kunz Primary Care Provider [phone] Encounter Details Date Type Department Care Team (Latest Contact Info) Description 10/28/2024 Anticoagulation Visit [facility] [address] [facility] [address] [place] [address] Yancy Viveros, Dry Cleaning Machine Operator Left ventricular apical thrombus (Primary Dx) [...] this encounter Progress Notes * Yancy Viveros, Dry Cleaning Machine Operator - 10/28/2024 11:51 AM EDT [facility]tico[facility] Progress Note Patient Demographics Method of INR reporting: Neterion Home Monitor SN [id number] Estimated OOP Cost: Indication: Left Ventricular Atypical Thrombus (~2012) Referring Provider Nanette Pryor APRN Reason patient is not on a DOAC: Goal INR: 2-3 Warfarin Start Date ~02/12/24 Reason patient is not on home monitor: [id number]: Planned Duration of Therapy Indefinite Relevant medical [...] - HM 1.4 - Clinic 1.32 - DEFENSE ATTORNEY 2.8 2.0 Notes Admitted [facility] Rec'd 05/27 [...] Verbal release: Signed 03/05/24 Preferred contact number: [phone] Alternative contact number(s): [phone] (Doron) [phone] (Ruthie) [phone] (Madyson) Patient Appropriate for WarfNoCall ? No [...] Info) Description 11/28/2024 7:45 PM EDT Appointment [facility] SLEEP [facility] [address] [facility] [address] [place] [address] 12/02/2024 3:30 PM EDT Office Visit [facility] CARDIOLOGY [address] [facility] [place] [address] Sujit Reyes MD [address] [facility] [address] [place] [address] 01/19/2025 1:45 PM EST Office Visit [facility] [address] [facility] [address] [place] [address] Naveen Velasquez MD [address] [facility] [address] [place] [address] documented as of this encounter Procedures Procedure Name Priority Date/Time Associated Diagnosis Comments SCANNED - LABS 10/28/2024 PROTIME-INR Routine 10/26/2024 documented in this encounter Results * LABS SCANNED (10/28/2024) [facility] LAB BLOOD ORDERABLES Final Re sult * Protime-INR (10/26/2024) INR 2.68 Blood 10/26/2024 [facility] Provider LAB BLOOD ORDERABLES Lee Ann l Result documented in this encounter Visit Diagnoses Diagnosis Left ventricular apical thrombus- Primary documented in this encounter Care Teams Inpatient Care Manager Rn Relationship Specialty Start Date End Date Alisa Kunz DO [address] [place] [address] PCP - General Internal Medicine 04/26/21 documented as of this encounter
--- OUTSIDE RECORDS SUMMARY | 2024-11-09 10:37 | XMS_ITS | Clinical Summary ---
[facility] Address [address] [place] [address] Care Team Providers Care Spinning Frame Cleaner Name Role Phone Alisa Kunz Primary Care Provider [phone] Allergies Active Allergy Reactions Criticality Noted Date [...] stress test 04/26/2020 Overview (04/27/2020): MPS at [facility] (04/19/2020): Test is abnormal and suggest anterior ischemia. Normal LVEF Fatigue 12/09/2018 Syncope and collapse 08/18/2018 Complete heart block 08/18/2018 A-fib 08/16/2018 History of CVA (cerebrovascular accident) 2018 Laceration of head 08/16/2018 Hyponatremia 08/15/2018 Second degree AV block 08/15/2018 Overview (08/24/2018): Added automatically from request for surgery [id number] Chronic kidney disease 05/05/2012 Hereditary and idiopathic neuropathy 05/05/2012 CAD (coronary artery disease) Ischemic heart disease Overview (02/29/2016): a. CABG, Dr. Timur Lopez, July 1999. i. SHEEHAN to distal LAD. ii. SVG to first diagonal. iii. SVG to second diagonal. b. SHAR [place] metal stenting of the ostium of the SVG to second diagonal. c. Rotational atherectomy/PTCA of RCA and SVG to second diagonal in-stent. i. PTCRA/stenting of proximal RCA in-stent restenosis and rotational atherectomy/PTCA of SVG to second diagonal. d. Americo therapy for in-stent restenosis of proximal dominant RCA, 04/16/2001, LVEF (65%). e. [facility]: Dr. Thakkar for acute OK, 01/10/2007: i. Normal LV function and wall motion. ii. Patent SVG to second diagonal. iii. Patent SHEEHAN graft to LAD. iv. 50% ostial stenosis of SVG to first diagonal. v. JANA Taxus stenting of mid RCA stenosis. f. Mild reversible anteroischemia - Cardiac SPECT (scan date ?), LVEF (77%). g. [facility], May 2011, [facility], reportedly revealed no disease (data deficit) in [...] Encounters Date Type Department Care Team Description 11/03/2024 Anticoagulation Visit [facility] [address] [place] [address] Yancy Viveros, Printer Technician Left ventricular apical thrombus (Primary Dx) 10/28/2024 Anticoagulation Visit [facility] [address] [facility] [address] [place] [address] Yancy Viveros, Printer Technician Left ventricular apical thrombus (Primary Dx) 10/21/2024 2:15 PM EDT Office Visit [facility] [address] [facility] [address] Shannen Horta APRN EWELINA (obstructive sleep apnea) (Primary Dx); Nocturnal hypoxemia; Weight loss; On supplemental oxygen therapy 10/21/2024 Travel 10/19/2024 Telephone [facility] [address] [facility] [address] [place] [address] Naveen Velasquez MD 10/19/2024 Anticoagulation Visit [facility] [address] [facility] [address] [place] [address] Mike Mariee, Printer Technician Left ventricular apical thrombus (Primary Dx) 10/12/2024 9:52 AM EDT - 10/12/2024 4:46 PM EDT Hospital Encounter [facility] [address] [place] [address] Naveen Velasquez MD Paroxysmal atrial fibrillation Discharge Disposition: Home or Self Care 10/12/2024 Telephone [facility] [address] [facility] [address] [place] [address] Marj Delgado, PharmD 10/12/2024 Travel 10/07/2024 Telephone [facility] [address] [facility] [address] [place] [address] Mike Mariee, Printer Technician 10/05/2024 Telephone [facility] [address] [facility] [address] [place] [address] TOMASSONI - CARDIOVERSION 10/05/2024 Anticoagulation Visit [facility] [address] [facility] [address] [place] [address] Mike Mariee, Printer Technician Left ventricular apical thrombus (Primary Dx) 10/04/2024 Telephone [facility] [address] [facility] [address] [place] [address] MD [address]CRAGER - PPW REQUEST 09/28/2024 Anticoagulation Visit [facility] [address] [facility] [address] [place] [address] Yancy Viveros, Printer Technician Left ventricular apical thrombus (Primary Dx) 09/28/2024 Telephone [facility] [address] [facility] [address] [place] [address] Sujit Reyes MD Results 09/24/2024 Travel 09/22/2024 11:30 AM EDT Anticoagulation Visit [facility] [address] [facility] [address] [place] [address] Left ventricular apical thrombus (Primary Dx) 09/22/2024 Travel 09/21/2024 Telephone [facility] [address] [facility] [address] [place] [address] Marj Delgado, PharmD 09/20/2024 Telephone [facility] [address] [facility] [address] [place] [address] Marj Delgado, PharmD 09/20/2024 Travel 09/16/2024 Prep for Surgery [facility] [address] [place] [address] Peg Nails PA-C 09/06/2024 Documentation [facility] [address] [facility] [address] [place] [address] Ekaterina Rand PA 09/06/2024 Telephone [facility] [address] [facility] [address] [place] [address]yes MD DR[address]CRAGER - CALL BACK 09/06/2024 Refill [facility] [address] [facility] [address] [place] [address] Sujit Reyes MD Med Refill 09/02/2024 Anticoagulation Visit [facility] [address] [facility] [address] [place] [address] Mike Mariee, Printer Technician Left ventricular apical thrombus (Primary Dx) 08/31/2024 Documentation [facility] [address] [facility] [address] [place] [address] Naveen Velasquez MD 08/31/2024 Telephone [facility] [address] [facility] [address] [place] [address]TOMASSONI - CALL BACK 08/27/2024 2:55 PM EDT Lab [facility] [address] [place] [address] Left ventricular apical thrombus; Left ventricular apical thrombus without OK 08/27/2024 1:30 PM EDT Anticoagulation Visit [facility] [address] [facility] [address] [place] [address] Left ventricular apical thrombus (Primary Dx); Left ventricular apical thrombus without OK 08/27/2024 Travel 08/26/2024 Anticoagulation Visit [facility] [address] [facility] [address] [place] [address] Yancy Viveros, Printer Technician Left ventricular apical thrombus (Primary Dx) 08/11/2024 Anticoagulation Visit [facility] [address] [facility] [address] [place] [address] Yancy Viveros, Printer Technician Left ventricular apical thrombus (Primary Dx) from Last 3 Months Immunizations Immunization Administration Dates Next Due COVID-19 (PFIZER) Purple Cap Monovalent 04/22/2020,03/30/2020 Fluzone High-Dose 65+YRS 11/27/2023,11/09,01/18/2019,12/19 Fluzone High-Dose 65+yrs 01/09/2023,01/09,01/18/2019,12/19 Hepatitis A 01/24/2019,01/23/2019,06/11/2018 Influenza TIV (IM) 12/08/2018 Influenza, Unspecified 12/09/2019 Pneumococcal Conjugate 13-Va lent (PCV13) 08/06/2019,07/02/2016 Pneumococcal Polysaccharide (PPSV23) 12/09/2019, 06/11/2018 Shingrix 01/24/2019,01/23/2019,06/11/2018 Family History Medical History Relation Name Comments COPD Father COPD Mother Gracydrew Maria Heart disease Mother Gracydrew Maria Stroke Mother [...] Info) Description 11/28/2024 7:45 PM EDT Appointment [facility] [address] [facility] [address] [place] [address] 12/02/2024 3:30 PM EDT Office Visit [facility] [address] [place] [address] Sujit Reyes MD [address] [place] [address] 01/19/2025 1:45 PM EST Office Visit [facility] [address] [place] [address] Naveen Velasquez MD [address] [facility] [address] [address] [place] [address] Health Maintenance Due Date Last Done Comments [...] history exists Medical Devices Implanted Type Area Staff Air Tactical Officer Device Identifier Shelf Expiration Date Model / Serial / Lot Ld Pm Tendril Sts 6f52cm [id number] - [id number] - [id number] Implanted:Qty: 1 on 08/24/2018 by Naveen Velasquez MD at [facility] 07/07/[id number] / [id number] / [id number] Ld Pm Tendril Sts 6f46cm [id number] - [id number] - [id number] Implanted:Qty: 1 on 08/24/2018 by Naveen Velasquez MD at [facility] Lead [employer] 04/09/2021 [id number] / [id number] / [id number] Gen Pm Assurity Mri Dr Ortez [id number] - [id number] - [id number] Implanted:Qty: 1 on 08/24/2018 by Naveen Velasquez MD at [facility] Pacemaker [employer] 01/08/2020 [id number] / [id number] / [id number] Procedures Procedure Name Priority Date/Time Associated Diagnosis Comments SCANNED - LABS 11/03/2024 PROTIME-INR Routine 11/02/2024 SCANNED - LABS 10/28/2024 PROTIME-INR Routine 10/26/2024 SCANNED - LABS 10/19/2024 [...] 5 :09 PM EDT PROTIME-INR Routine 08/10/2024 OCCULT BLOOD X 1, STOOL Urgent 02/12/2024 12:11 PM EST SCANNED - COLONOSCOPY 10/17/2020 HEMOGLOBIN A1C STAT 05/04/2020 8:41 AM EST LIPID PANEL STAT 05/04/2020 8:41 AM EST from Last 3 Months or Most Recently Relevant to Health Maintenance Results * LABS SCANNED (11/03/2024) Only the most recent of4 resultswithin the time period is included. [facility] LAB BLOOD ORDERABLES Final Re sult * Protime-INR (11/02/2024) Only the most recent of10 resultswithin the time period is included. INR 2.63 Blood 11/02/2024 [facility] Provider LAB BLOOD ORDERABLES Lee Ann l Result * Cardioversion External in Cardiology Department (10/12/2024 [...] - 10.80 10*3/mm3 10/12/2024 10:48 AM EDT [facility] RBC 3.75(L) 3.77 - 5.28 10*6/mm3 10/12/2024 10:48 AM EDT [facility] Hemoglobin 11.2(L) 12.0 - 15.9 g/dL 10/12/2024 10:48 AM EDT [facility] Hematocrit 36.8 34.0 - 46.6 % 10/12/2024 10:48 AM EDT [facility] MCV 98.1(H) 79.0 - 97.0 fL 10/12/2024 10:48 AM EDT [facility] MCH 29.9 26.6 - 33.0 pg 10/12/2024 10:48 AM EDT [facility] MCHC 30.4(L) 31.5 - 35.7 g/dL 10/12/2024 10:48 AM EDT [facility] RDW 16.7(H) 12.3 - 15.4 % 10/12/2024 10:48 AM EDT [facility] RDW-SD 60.3(H) 37.0 - 54.0 fl 10/12/2024 10:48 AM EDT [facility] MPV 9.7 6.0 - 12.0 fL 10/12/2024 10:48 AM EDT [facility] Platelets 289 140 - 450 10*3/mm3 10/12/2024 10:48 AM EDT [facility] Blood Line / Unknown 10/12/2024 10 :20 AM EDT 10/12/2024 10:40 AM EDT Naveen Velasquez MD LAB BLOOD ORDERABLES Final R esult Performing Organization Address City/[facility]/ZIP Co de Phone Number [facility]
[address] [place] [address], * (ABNORMAL) POC Protime / INR (09/22/2024 11:47 AM EDT) Only the most recent of2 resultswithin the time period is included. Protime 24.2(H) 10.0 - 13.8 seconds 09/22/2024 11:49 AM EDT [facility] INR 2.0(H) 0.91 - 1.09 09/22/2024 11:49 AM EDT [facility] Blood 09/22/2024 11:4 7 AM EDT 09/22/2024 11:49 AM EDT LUIS Dimas POINT OF CARE TEST ORDERAB LES Final Result [facility]
[address] [place] [address], * (ABNORMAL) Basic Metabolic Panel (09/21/2024 9:55 AM EDT) Glucose 209(H) 65 - 99 mg/dL 09/21/2024 11:17 AM EDT [facility] BUN 19.8 8.0 - 23.0 mg/dL 09/21/2024 11:17 AM EDT [facility] Creatinine 1.05(H) 0.57 - 1.00 mg/dL 09/21/2024 11:17 AM T [facility] Sodium 133(L) 136 - 145 mmol/L 09/21/2024 11:17 AM T [facility] Potassium 5.0 3.5 - 5.2 mmol/L 09/21/2024 11:17 AM EDT [facility] Chloride 91(L) 98 - 107 mmol/L 09/21/2024 11:17 AM EDT [facility] CO2 27.6 22.0 - 29.0 mmol/L 09/21/2024 11:17 AM T [facility] Calcium 9.0 8.6 - 10.5 mg/dL 09/21/2024 11:17 AM [facility] BUN/Creatinine Ratio 18.9 7.0 - 25.0 09/21/2024 11:17 AM [facility] Anion Gap 14.4 5.0 - 15.0 mmol/L 09/21/2024 11:17 AM [facility] eGFR 56.2(L) >60.0 mL/min/1.7 3 09/21/2024 11:17 AM [facility] Blood Line / Unknown 09/21/2024 9: 55 AM EDT 09/21/2024 10:29 AM EDT [facility] - 09/21/2024 11:17 AM EDT [...] Nails PA-C LAB BLOOD ORDERABLES Final Result [facility]
[address] [place] [id number], * ECG Scan (08/31/2024) Only the most recent of2 resultswithin the time period is included. us Naveen Velasquez MD ECG ORDERABLES Final Result * Remote Device Check (08/24/2024 5:09 PM EDT) Date Time Interrogation Session [id number] [facility] Type Interrogation Session Remote Scheduled [facility] [employer] [facility] Implantable Pulse Generator Staff Air Tactical Officer [facility] [employer] [facility] Implantable Pulse Generator Type IPG [facility] Implantable Pulse Generator Model 2272 Assurity MRI(TM) [facility] Implantable Pulse Generator Serial Number [id number] [facility] Implantable Pulse Generator Implant Date [id number] [facility] Battery Remaining Percentage 39.00 % [facility] Battery Remaining Longevity 44.0 mo [facility] [employer] [facility] Battery Voltage 2.960 [facility] [employer] RAD[facility] Battery AIR INTERCEPT CONTROLLER Trigger 2.600 [facility] Battery Status Middle of Service [facility] Americo Statistic RA Percent Paced 1.00 [facility] Statistic RV Percent Paced 99.00 [facility] Atrial Tachy Statistic AT/AF [place] Percent 99.00 [facility] Lead Channel RA Sensing Intrinsic Amplitude 3.100 [facility] [employer] [facility] Lead Channel Setting RA Sensing Sensitivity 0.50 [facility] [employer] [facility] Lead Channel RA Impedance Value 430 [facility] [employer] [facility] Lead Channel Setting RA Pacing Amplitude 2.000 [facility] [employer] [facility] Lead Channel Setting RA Pacing Pulse Width 0.6 [facility] [employer] [facility] Lead Channel RV Sensing Intrinsic Amplitude 12.000 [facility] [employer] [facility] Lead Channel Setting RV Sensing Sensitivity 2.00 [facility] [employer] [facility] Lead Channel RV Impedance Value 480 [facility] Lead Channel Setting RV Pacing Amplitude 2.000 [facility] [employer] [facility] Lead Channel Setting RV Pacing Pulse Width 0.5 [facility] Setting Mode (NBG Code) DDDR [facility] Setting Lower Rate Limit 60 [facility] Setting AT Mode Switch Rate 160 [facility] Setting Maximum Tracking Rate 125 [facility]o Setting Maximum Sensor Rate 115 [facility] Setting PAV Delay 180 [facility] Setting IZZY Delay 150 [facility] Lead Channel Setting RA Sensing Polarity Bipolar [facility] Lead Channel Setting RV Sensing Polarity Bipolar [facility] Lead Channel Setting RA Pacing Polarity Bipolar [facility] Lead Channel Setting RV Pacing Polarity Bipolar [facility] Lead Channel RA Pacing Threshold Polarity Bipolar [facility] Lead Channel RV Pacing Threshold Polarity Bipolar [facility] 08/24/2024 5:09 PM EDT Naveen Velasquez MD CV IMPLANTABLE CARDIAC DEVIC E Final Result [facility] * Occult Blood X 1, Stool - Stool, Per Rectum (02/12/2024 12:11 PM EST) Pathologist [facility] Fecal Occult Blood Negative Negative DISK DIFFUSION 02/12/2024 1:13 PM EST [facility] Stool Specimen from rectum / Unknown Collection / Unknown 02/12/2024 12:11 PM EST 02/12/2024 12:31 PM EST Shannen Foy MEDICAL RADIATION THERAPIST BODY FLUIDS AND STOOLS ORDERABLES Final Result [facility]
[address] [place] [address], * SCANNED - COLONOSCOPY (10/17/2020) Sujit Christine MD CHART REVIEW TABS Lee Ann howard Result * (ABNORMAL) Lipid Panel (05/04/2020 8:41 AM EST) Pathologist [facility] Total Cholesterol 184 0 - 200 mg/dL 05/04/2020 9:34 AM EST [facility] Triglycerides 133 0 - 150 mg/dL 05/04/2020 9:34 AM [facility] HDL Cholesterol 55 40 - 60 mg/dL 05/04/2020 9:34 AM [facility] LDL Cholesterol 106(H) 0 - 100 mg/dL 05/04/2020 9:34 AM [facility] VLDL Cholesterol 23 5 - 40 mg/dL 05/04/2020 9:34 AM [facility] LDL/HDL Ratio 1.86 05/04/2020 9:34 AM [facility] Blood Line / Unknown 05/04/2020 8: 41 AM EST 05/04/2020 8:55 AM [facility] - 05/04/2020 9:34 AM EST Cholesterol [...] LAB BLOOD ORDERABLES Lee Ann howard Result [facility]
[address] [place] [address], from Last 3 Months or Most Recently Relevant to Health Maintenance Insurance [facility] Medicare Advant[employer] PPO Advance Directives * [...] Of Support Discussed With: Patient Care Teams Spinning Frame Cleaner Relationship Specialty Start Date End Date Alisa Kunz DO [address] [place] [address] PCP - General Internal Medicine 04/26/21
--- OUTSIDE RECORDS SUMMARY | 2024-11-09 10:37 | XMS_ITS | Encounter Summary ---
[facility] Address [address] [place] [address] Care Team Providers Care Golf Club Head Inspector Name Role Phone Alisa Kunz Primary Care Provider [phone] Encounter Details Date Type Department Care Team (Latest Contact Info) Description 06/14/2024 Anticoagulation Visit [facility] [address] [facility] [address] [place] [address] Mike Mariee, Gardening Manager Left ventricular apical thrombus (Primary Dx) [...] Info) Description 11/28/2024 7:45 PM EDT Appointment [facility] [address] [facility] [address] [place] [address] 12/02/2024 3:30 PM EDT Office Visit [facility] [address] [place] [address] [place] [address] Sujit Reyes MD [address] [place] [address] 01/19/2025 1:45 PM EST Office Visit [facility] [address] [facility] [address] [place] [address] Naveen Velasquez MD [address] [facility] [address] [place] [address] documented as of this encounter Visit Diagnoses Diagnosis Left ventricular apical thrombus- Primary documented in this encounter Care Teams Golf Club Head Inspector Relationship Specialty Start Date End Date Alisa Kunz DO [address] [place], [place] [id number] PCP - General Internal Medicine 04/26/21 documented as of this encounter
--- OUTSIDE RECORDS SUMMARY | 2024-11-09 10:37 | XMS_ITS | Encounter Summary ---
Author Organization [facility] Address [address] [place] [address] Care Team Providers Care Certified Flight Instructor Name Role Phone ZeAlisa willett Torri DO Primary Care Provider [phone] Kodi Bustos DO Unavailable [phone] Sujit Arriola MD Unavailable [phone] Sujit Reyes MD Unavailable [phone] Zee Lazar DO Unavailable [phone] Encounter Details Date Type Department Care Team [...] Recorded Patient Health Questionnaire-2 Score 0 10/27/2024 [facility] - Occupational Stress Questionnaire Answer Date [...] drink first t anselmo in the morning (EYE-SHANK SKINNER) to steady your nerves or to get [...] Description 12/06/2024 11:20 AM EDT Office Visit [facility] Internal Medicine [address] [place] [address] Alisa Kunz, DO [address] [facility] [address] [place] [address] 12/23/2024 4:00 PM EDT [facility] [address] [place] [address] Lavern Shoemaker MD [address] [place], [place] [id number] 02/02/2025 8:40 AM EST Office Visit [facility] Internal Medicine [address] [place] [address] Alisa Kunz, DO [address] [facility] [address] [place] [address] 02/09/2025 12:20 PM EST Office Visit [facility] Endocrinology [address] [place] [address] Anne-Marie Kolb L, BAKER PIE [address] [facility] [address] [place] [address] documented as of this encounter Visit Diagnoses [...] documented as of this encounter Care Teams Certified Flight Instructor Relationship Specialty Start Date End Date Alisa Kunz DO [address] [place] [address] PCP - General Internal Medicine 03/13/21 Kodi Bustos DO [address] [phone] Surgeon Cardiothoracic Surgery 11/06/22 Sujit Arriola MD [address] [place] [address] Consulting Physician Pulmonary Disease 11/06/22 Sujit Reyes MD [address] [place] [address] Referring Physician 12/04/22 Zee Lazar DO [address] [place], [place] [id number] Resident 09/08/24 documented as of this encounter
--- OUTSIDE RECORDS SUMMARY | 2024-11-09 10:37 | XMS_ITS | Encounter Summary ---
[facility] Address [address] [place] [address] Care Team Providers Care Activity Manager Name Role Phone Alisa Kunz Primary Care Provider [phone] Encounter Details Date Type Department Care Team (Late st Contact Info) Description 09/16/2024 Prep for Surgery [facility] [address] [place] [address] Peg Nails PAEsthelaC [address] [facility] [address] [place] [address] Social History Tobacco Use Types [...] 11/28/2024 7:45 PM EDT Appointment [facility] [address] [facility] [address] [place] [address] 12/02/2024 3:30 PM EDT Office Visit [facility] [address] [facility] [place] [address] Sujit Reyes MD [address] [place] [address] 01/19/2025 1:45 PM EST Office Visit [facility] [address] [facility] [address] [place] [address] Naveen Velasquez MD [address] [facility] [address] [address] [place], [place] [phone] documented as of this encounter Visit Diagnoses Not on filedocumented in this encounter Care Teams Activity Manager Relationship Specialty Start Date End Date Alisa Kunz DO [address] [place] [address] PCP - General Internal Medicine 04/26/21 documented as of this encounter
[2024-11-09 10:48] LABS: INR 2.74 (0.9-1.1); Prothrombin Time 28.2 seconds (10.1-12.5)
== END 2024-11-09 23:59 | disposition home or self-care (01) ==
LOC: LAB 09:59
PROVIDERS: PCP Internal Medicine; Visit Provider Nurse Practitioner Gerontology
DX: I51.3 Intracardiac thrombosis, not elsewhere classified (principal); I24.0 Acute coronary thrombosis not resulting in myocardial infarction
CPT/HCPCS: 36415; 85610

== ENCOUNTER 2025-01-05 15:40 | Outpatient (CLI) | payer MEDICARE, SELFPAY ==
--- OUTSIDE RECORDS SUMMARY | 2019-03-15 14:10 | XMS_ITS | Encounter Summary ---
Author Organization [facility] Address [address] [place] [address] Care Team Providers Care Spot Washer Name Role Phone Jackson Malave MD Primary Care Provid er Reason for Referral * Hospital - Outpatient (Routine) - Closed Specialty Diagnoses / Procedures Referred By Luis Armando Referred To Contact Sleep Medicine Diagnoses EWELINA (obstructive sleep apnea) Fatigue, unspecified type Procedures Home Sleep Study Jesu Duarte MD Phone: tel: fax: [facility] [address] [address] Phone: tel: fax: Referral ID Status Reason Start Date Expiration Date Visits Re quested Visits Authorized [id number] Closed 02/09/2019 02/09/2020 1 1 Reason for Visit * Hospital - Outpatient (Routine) - Closed Specialty Diagnoses / Procedures Referred By Contdarwin t Referred To Contact Sleep Medicine Diagnoses EWELINA (obstructive sleep apnea) Fatigue, unspecified type Procedures Home Sleep Study Jesu Duarte MD Phone: tel: fax: [facility] [address] [place] [address] Phone: tel: fax: Referral ID Status Reason Start Date Expiration Date Visits Re quested Visits Authorized [id number] Closed 02/09/2019 02/09/2020 1 1 Encounter Details Date Type Department Care Team (Late st Contact Info) Description 03/15/2019 1:10 PM EST Hospital Encounter [facility] [address] [facility] [address] [place] [address] Jesu Duarte MD [address] [place] [address] EWELINA (obstructive sleep apnea); Fatigue, [...] alcohol? 4 or more times a week 11/19/2024 Q2: How many drinks containi ng alcohol do you have on a typical day when you are drinking? 1 or 2 Q3: How often do you have si x or more drinks on one occasion? Never 11/19/2024 Abuse Screen Answer Date Recorded Feels Unsafe at Home or Work/School no 11/19/2024 Feels Threatened by Someone no 11/08 Does Anyone Try to Keep You From Having Contact with Others or Doing Things Outside Your Home? no 11/19/2024 Physical Signs of Abuse Present no 11/19/2024 Housing Stability Answer Date Recorded Current Living Arrangements home 11/08 Potentially Unsafe Housing Conditions Not on luisa e 11/19/2024 Disabilities Answer Date Recorded Difficulty Concentrating, Re membering or Making Decisions no 11/19/2024 Difficulty Managing Errands Independently other (see comments) 11/19/2024 Comments No Sex and Gender Information Value [...] to be (Past 1 Month) No 025 9:05 AM EDT Shown, Jodie Meza RN 2. Non-Specific Active Suici dillon Thoughts (Past 1 Month) No 11/19/2024 9:05 AM EDT Shown, Jodie Meza RN * Calculated C-SSRS Risk Score (Lifetime/Recent) Answer Date of Assessment Author No Risk Indicated 11/19/2024 9:05 AM EDT Shown, Jodie Meza RN * [place] Suicide Severity Rating Scale (Screener/Recent Self-Report) Question Answer Date of Assessment Author 6. Suicidal Behavior (Lifetime) No 9:05 AM EDT Shown, Jodie Meza RN documented as of this encounter Plan of Treatment Upcoming Encounters Date Type Department Care Team (Late st Contact Info) Description 01/19/2025 1:45 PM EST Office Visit [facility] [address] [place] [address] Naveen Velasquez MD [address] [facility] [address] [place] [address] 05/04/2026 2:45 PM EST Office Visit [facility] [address] [facility] [address] Sujit Reyes MD [address] [facility] [address] [place] [address] documented as of this encounter [...] had a home sleep test with an [employer] Night One device that measured airflow at [...] documented as of this encounter Care Teams Spot Washer Relationship Specialty Start Date End Date Jackson Malave MD PCP - General Internal Medicine 12/09/18 04/25/21 documented as of this encounter
--- OUTSIDE RECORDS SUMMARY | 2024-11-15 15:00 | XMS_ITS | Encounter Summary ---
Author Organization [facility] Address [address] [place] [address] Care Team Providers Care Lowerator Operator Name Role Phone Pcp, No Primary Care Provider Unavailabl e Alisa Kunz DO Unavailable [phone] Kodi Bustos DO Unavailable [phone] Sujit Arriola MD Unavailable [phone] Sujit Reyes MD Unavailable [phone] Zee Lazar DO Unavailable [phone] Reason for Referral * Imaging (Routine) - Authorized Specialty Diagnoses / Procedures Referred By Contac t Referred To Contact Radiology Diagnoses Chronic neck pain with osteoarthritis determined by x-ray Procedures MR Cervical Spine w and wo IV Contrast Alisa Kunz DO [address] [place] [address] Phone: tel: fax: Referral ID Status Reason Start Date Expiration Date V isits Requested Visits Authorized [id number] Authorized 11/15/2024 05/17/2026 1 1 * Consultation (Routine) - Authorized Specialty Diagnoses / Procedures Referred By Contac t Referred To Contact Pain Medicine Diagnoses Chronic neck pain with osteoarthritis determined by x-ray Alisa Kunz DO [address] [place] [address] Phone: tel: fax: [facility] Interventional Pain Medicine [address] [place] [address] Phone: tel: fax: Referral ID Status Reason Start Date Expiration Date Visits Requested Visits Authorized [id number] Authorized Specialty Services Required 11/15/2024 05/17/2026 1 1 Reason for Visit * Reason Comments Pain Encounter Details Date Type Department Care Team (Latest Contact Info) Description 11/15/2024 3:00 PM EDT Office Visit [facility] Women's Health [address] [place] [address] Alisa Kunz DO [address] [place] [address] Chronic neck pain with osteoarthritis determined by x-ray (Primary Dx); Gustatory rhinitis; Phlegm in throat; Recurrent aphthous ulcer Social History Tobacco Use Types Packs/Day Years Used Date Smoking Tobacco: Never Passive Smoke Exposure: Past Smokeless Tobacco: Never Passive Exposure Comments:2n d hand smoke Alcohol Use Standard Drinks/Week Comments Yes 2 (1 standard drink = 0.6 oz pur [...] Recorded Patient Health Questionnaire-2 Score 0 10/27/2024 [facility] - Occupational Stress Questionnaire Answer Date Recorded [...] drink first t anselmo in the morning (EYE-GEOGRAPHIC INFORMATION SYSTEMS ANALYST) to steady your nerves or to [...] Sign Reading Time Taken Comments Blood Pressure 130/60 11/15/2024 3:20 PM EDT Pulse 78 11/15/2024 3:20 PM EDT Temperature 36.3 C (97.3 F) 11/15/2024 3:20 PM EDT Respiratory Rate 12 11/15/2024 3:20 PM EDT Oxygen Saturation - - Inhaled Oxygen Concentration - - Weight 60.9 kg (134 lb 4.2 oz) 11/15/2024 3:20 P M EDT Height 162.6 cm (5' 4 ) 11/15/2024 3:20 PM EDT Body Mass Index 23.05 11/15/2024 3:20 PM EDT documented in this encounter Miscellaneous Notes * Progress Notes - Kahlil Hahn MD - 11/15/2024 3:00 PM EDT Acute Care Visit Verbal consent was obtained to use ambient listening technology to assist in the documentation of the encounter: yes Subjective HPI Ms. Felipe is here today for evaluation of multiple complaints. History of Present Illness The patient presents for evaluation of phlegm in her throat, neck pain, and runny nose. She reports the presence of dark brown phlegm in her throat, which she first noticed yesterday or the day before. She says that the phlegm has not increased in quantity, and she has not had increasedoxygen use or dyspnea. She has not experienced any fevers or worsening shortness of breath. The phlegm often gets stuck, making it difficult for her to expel it. She experiences pain in her neck, which intensifies with exertion. Despite undergoing physical therapy, she finds the pain unbearable. She can prepare a simple meal for herself but struggles to do the same for her due to fatigue and pain. She has been experiencing these symptoms since March 2024, and they seem to be progressively worsening. She has not noticed any numbness or tingling in her arms, and denies any weakness in upper extremities. She has undergone an MRI of the thoracic spine within the last few months which showed a compression fracture. She also experiences gustatory rhinitis, which causes excessive nasal dripping during meals or evenwhen she is not eating. She is interested in trying a nasal spray to manage this symptom. She requests refill for oral lidocaine for oral aphthous ulcers related to her lupus. Review of Systems A ROS was performed and negative other than what was stated in the HPI. Current Medications[1] Objective Vitals: 11/15/24 1520 BP: 130/60 Pulse: 78 Resp: 12 Temp: 36.3 ??C (97.3 ??F) Physical Exam Constitutional: General: She is not in acute distress. Appearance: She is ill-appearing (chronically). Cardiovascular: Rate and Rhythm: Normal rate. Pulmonary: Effort: No respiratory distress. Breath sounds: Normal breath sounds. Comments: Nasal cannula in place. Lung sounds heard in all lung choi. No adventitious breath sounds. Musculoskeletal: General: Tenderness (muscular tenderness R trapezius. No bony tenderness over cervical spine.) present. Right lower leg: No edema. Left lower leg: No edema. Skin: Findings: No rash. Neurological: Mental Status: She is oriented to person, place, and time. Comments: Generalized weakness (chronic). In wheelchair. Assessment/Plan Ms. Felipe is an 74 y.o. female who presents today for multiple complaints. Diagnosis Plan 1. Chronic neck pain with osteoarthritis determined by x-ray Ambulatory referral to Pain Medicine MR Cervical Spine w and wo IV Contrast 2. Gustatory rhinitis ipratropium (Atrovent) 0.06 % nasal spray 3. Phlegm in throat 4. Recurrent aphthous ulcer lidocaine (Xylocaine) 2 % solution Assessment & Plan 1. Phlegm in throat: - Dark yellow phlegm is new, previously was only yellow. Has only noticed this in last 24 hours. Noincrease in quantity of baseline sputum production. - No fever or increased shortness of breath. Has not required additional oxygen. - Lungs are CTAB. No need for CXR today given lack of fever, lack of increased production, and stable oxygen requirement. Personally reviewed CXR from 10/14/24 which showed bilateral pleural effusions R > L. Suspect this is stable given lung examination today. - She is advised to monitor the color of the phlegm and report any changes or worsening symptoms. 2. Chronic cervical neck pain with OA: - Degenerative disc disease in the cervical spine is likely progressing. The pain worsens with exertion and certain positions. - MRI c spine w/ and w/o contrast ordered to further assess; XR (reviewed) showed moderate degenerative changes in 06/2024. - Referral to pain management placed. 3. Gustatory rhinitis: - Excessive nasal dripping, especially when eating. - Ipratropium nasal spray (Atrovent) will be prescribed to manage this symptom. 4. Recurrent aphthous ulcer - related to her lupus - refilled oral lidocaine solution Has appointment with PCP 12/06/2024 for chronic medical conditions. Kahlil Hahn MD [1] Current Outpatient Medications Medication Sig Dispense Refill acetaminophen (Tylenol) 500 MG tablet Take 2 tablets by mouth every 6 hours as needed. aspirin 81 MG EC tablet Take 1 tablet by mouth every evening. Blood Glucose Monitoring Suppl (Blood Glucose Monitor System) w/Device kit Test blood sugars twice a day to calibrate cgm. Dx E10.65 1 kit 0 cetirizine (ZyrTEC) 10 MG tablet Take 1 [...] tablet Take 1 tablet by mouth nightly. ferrous sulfate 324 (65 Fe) MG EC tablet Take 1 tablet by mouth daily with breakfast. Do not crush,chew, or split. Uzxbxhvnumd-Qjiyjujuv-Qnwclc (Trelegy Ellipta) 200-62.5-25 MCG/ACT aerosol powder Inhale 1 puff 1 (one) time each day in the morning. 180 each 3 folic acid (Folvite) 1 MG tablet Taking 1 tablet five days of the week 90 tablet 1 furosemide (Lasix) 80 MG tablet Take 1 tablet by mouth daily. 30 tablet 2 gabapentin (Neurontin) 300 MG capsule Take 2 capsules by mouth 2 times a day. 120 capsule 2 glucose blood test strip Use to test blood sugars twice a day to calibrate cgm. Dx 10.65 100 each 12 hydroxychloroquine (Plaquenil) 200 MG tablet Take 1.5 tablets by mouth daily. 45 tablet 5 insulin glargine (Toujeo SoloStar) 300 UNIT/ML injection pen (1 UNIT DIAL) Inject 14 Units under the skin every morning. 4.5 mL 3 insulin lispro (HumaLOG KWIKPEN) 100 UNIT/ML injection pen Inject 2-6 units before meals plus 1:60>150. Max tdd 30 units 30 mL 2 Lancets [facility] Use twice a day to calibrate cgm Dx E10.65 100 each 3 latanoprost (Xalatan) 0.005 % ophthalmic solution Administer 1 drop into both eyes nightly. levothyroxine (Synthroid, Levoxyl) 125 MCG tablet Take 1 tablet (125 mcg) by mouth 1 (one) time each day before breakfast. 90 tablet 3 metoprolol succinate XL (Toprol-XL) 25 MG 24 hr tablet Take 1 tablet by mouth every morning. mycophenolate (CellCept) 500 MG tablet Take 2 tablets by mouth 2 times a day. 360 tablet 1 oxygen (O2) gas Inhale 2 L nightly. via nasal canula Pitavastatin Calcium (Livalo) 4 MG tablet Take 1 tablet by mouth daily. 90 tablet 3 Probiotic Product (acidophilus probiotic blend) capsule Take 1 capsule by mouth daily. spironolactone (Aldactone) 25 MG tablet Take 0.5 tablets by mouth daily. (Patient taking differently: Take 0.5 tablets by mouth daily. Taking 1/4th tablet d/t feeling dizzy when she takes it) sucralfate (Carafate) 1 GM/10ML suspension Take 10 mL by mouth 4 times a day. 473 mL 11 warfarin (Coumadin) 5 MG tablet Take 2.5 mg on Friday and 5mg the rest of the week and follow up with your warfarin pharmacist. 30 tablet 0 ipratropium (Atrovent) 0.06 % nasal spray Administer 2 sprays into each nostril 4 times a day. 15 mL 12 lidocaine (Xylocaine) 2 % solution Take 5 mL by mouth as needed for mild pain. Swish and spit: Every 4 hours as needed. 100 mL 0 No current facility-administered medications for this visit. Cosigned by Alisa Kunz DO at 11/18/2024 9:24 AM EDT Associated attestation - Alisa Kunz DO - 11/18/2024 9:24 AM EDT I saw and evaluated the patient with the resident/fellow. I discussed the case with the resident/fellow and agree with the findings and plan as documented. documented in this encounter Plan of Treatment Upcoming Encounters Date Type Department Care Team (Late st Contact Info) Description 01/06/2025 2:00 PM EDT Office Visit [facility] Medicine Specialties [address] [place] [phone] Lavern Shoemaker MD [address] [place] [address] 01/12/2025 1:10 PM EST Office Visit [facility] [address] [place] [phone] Noris Yee MD [address] [place] [address] 01/12/2025 2:00 PM EST Office Visit Interventional Pain Medicine [address] [place] [address] Ezra Fine MD [address] [place] [address] 01/27/2025 10:00 AM EST Office Visit [facility] [address] [place] [phone] Sujit Cole, YAMILET [address] [place] [address] 02/02/2025 8:40 AM EST Office Visit [facility] Internal Medicine [address] [place] [address] Alisa Kunz DO [address] [place] [address] 02/09/2025 12:20 PM EST Office Visit [facility] Endocrinology [address] [place] [phone] Anne-Marie Kolb, ORGANIC CHEMISTRY TEACHER [address] [facility] [address] [place] [address] 04/18/2025 2:40 PM EST Office Visit [facility] Endocrinology [address] [place] [address] Anne-Marie Kolb, ORGANIC CHEMISTRY TEACHER [address] [facility] [address] [place] [address] Scheduled Orders Name Type Priority Associated Diagnoses Orde r Schedule MR Cervical Spine w and wo IV Contrast Imaging Routine Chronic neck pain with osteoarthritis determined by x-ray Expected: 11/15/2024 (Approximate), Expires: 05/19/2026 Scheduled Referrals Name Type Priority Associated Diagnoses Orde r Schedule Ambulatory referral to Pain Medicine Outpatient Referral Routine Chronic neck pain with osteoarthritis determined by x-ray 1 Occurrences starting 11/15/2024 until 05/19/2026 documented as of this encounter Visit Diagnoses Diagnosis Chronic neck pain with osteoarthritis determined by x-ray- Primary Gustatory rhinitis Phlegm in throat Recurrent aphthous ulcer Oral aphthae documented in this encounter Additional Health Concerns Assessment Noted Time PHQ-9 Depression Total Score: 0 09/09/19 11:19 AM EDT A fall risk assessment has been complete d for the patient 11/15/2024 3:19 PM EDT A Body Mass Index follow-up plan has been documented for the patient 11/18/2024 9:24 AM EDT documented as of this encounter Care Teams Lowerator Operator Relationship Specialty Start Date End Date Pcp, [place] [address] PCP - General Family Medicine 11/21/23 12/06/24 Alisa Kunz DO [address] [place] [phone] Internal Medicine 11/21/23 Kodi Bustos DO [address] [phone] Surgeon Cardiothoracic Surgery 11/06/22 Sujit Arriola MD [address] [place] [address] Consulting Physician Pulmonary Disease 11/06/22 Sujit Reyes MD [address] [place] [address] Referring Physician 12/04/22 Zee Lazar DO [address] [place] [id number] Resident 09/08/24 documented as of this encounter
--- OUTSIDE RECORDS SUMMARY | 2024-11-19 08:53 | XMS_ITS | Encounter Summary ---
Author Organization [facility] Address [address] [place] [address] Care Team Providers Care Fourth Mate Name Role Phone Ze Alisagricel Codygh Primary Care Provider [phone] Reason for Visit * Cardiac (Routine) - Closed Specialty Diagnoses / Procedures Referred By Contac t Referred To Contact Diagnoses Paroxysmal atrial fibrillation Procedures Cardioversion External in Cardiology Department Ekaterina Rand PA [address] [facility] [address] [place] [address] Phone: tel: fax: Referral ID Status Reason Start Date Expiration Date Visits Re quested Visits Authorized [id number] Closed 11/19/2024 02/11/2026 1 1 Encounter Details Date Type Department Care Team (Late st Contact Info) Description 11/19/2024 8:53 AM EDT - 11/19/2024 1:45 PM EDT Hospital Encounter [facility] [address] [place] [id number] Naveen Velasquez MD [address] [facility] [address] [place] [address] Paroxysmal atrial fibrillation; Persistent atrial fibrillation Discharge Disposition: Home or Self [...] Sign Reading Time Taken Comments Blood Pressure 178/78 11/19/2024 12:00 PM EDT Pulse 60 11/19/2024 12:00 PM EDT Temperature 36.2 C (97.1 F) 11/19/2024 9:05 AM EDT Respiratory Rate 16 11/19/2024 11:36 AM EDT Oxygen Saturation 100% 11/19/2024 12:00 PM EDT Inhaled Oxygen Concentration - - Weight 60.9 kg (134 lb 4.2 oz) 11/19/2024 9:05 A M EDT Height 162.6 cm (5' 4 ) 11/19/2024 9:05 AM EDT Body Mass Index 23.05 11/19/2024 9:05 AM EDT documented in this encounter Functional [...] AM EDT Shown, Jodie Meza RN * [place] Suicide Severity Rating Scale (Screener/Recent Self-Report) Question Answer Date of Assessment Author 6. Suicidal Behavior (Lifetime) No 9:05 AM EDT Shown, Jodie Meza RN documented as of this encounter Discharge Instructions * Attachments The following attachments cannot be sent through Care Everywhere. * Atrial Fibrillation (Grenadian) * Moderate Conscious Sedation Adult (Grenadian) * Moderate Conscious Sedation Adult Care After (Grenadian) * Warfarin Tablets (Grenadian) * Transesophageal Echocardiogram (Grenadian) documented in this encounter Medications at Time [...] 3 (Three) Times a Day Before Meals. PER SS latanoprost (XALATAN) 0.005 % ophthalmic solution Administer 1 drop to both eyes Every Night. 6 06/16/2018 levothyroxine (SYNTHROID, LEVOTHROID) 125 MCG tablet Take 1 tablet by mouth Daily. metoprolol succinate XL (TOPROL-XL) 25 MG 24 hr tablet Take 1 tablet by mouth Daily. 90 tablet 3 12/08/2023 mycophenolate (CELLCEPT) 500 MG tablet Take 2 tablets by mouth 2 (Two) Times a Day. nitroglycerin (NITROSTAT) 0.3 MG SL tablet 1 under the tongue as needed for angina, may repeat q5mins for up three doses 25 tablet 1 04/12/2024 pitavastatin calcium (LIVALO) 2 MG tablet tablet Take 1 tablet by mouth Every Night. spironolactone (ALDACTONE) 25 MG tablet Take 6.25 mg by mouth Daily. 07/20/2024 Trelegy Ellipta 200-62.5-25 MCG/INH inhaler Inhale 1 puff Daily. 07/18/2021 Urine Glucose-Ketones Test (Keto-Diastix) strip Use daily as needed per endocrinology 02/04/2024 warfarin (COUMADIN) 5 MG tablet TAKE 1/2 TO 1 TABLET ONCE A DAY OR DIRECTED TAKE 7.5 mg on 10/12/2024. 30 tablet 2 10/12/2024 documented as of this encounter H&P Notes * Ekaterina Rand PA - 11/19/2024 9:12 AM EDT Cardiology H&P Michelle Felipe 1950 There is no work phone number on file. 11/19/24 DATE OF ADMISSION: 11/19/2024 [facility] Alisa Kunz, DO [address] / [facility] [id number] Referring Provider: Naveen Velasquez MD CC: AFIB Problem List: Ischemic heart disease: CABG, Dr. Timur Lopez, July 1999 (SHEEHAN to distal LAD,SVG to first diagonal, SVG to second diagonal, SHAR Rogers metal stenting of the ostium of the SVG to second diagonal, Rotational atherectomy/PTCA ofRCA and SVG to second diagonal in-stent. PTCRA/stenting of proximal RCA in-stent restenosis and rotational atherectomy/PTCA of SVG to seconddiagonal. Brachy therapy for in-stent restenosis of proximal dominant RCA, 04/16/2001, LVEF (65%). [facility]: Dr. Thakkar for acute PR, 01/10/2007: Normal LV function and wall motion, Patent SVG to second diagonal, Patent SHEEHAN graft to LAD, 50% ostial stenosis of SVG to first diagonal, JANA Taxus stenting of mid RCA stenosis. Mild reversible anteroischemia - Cardiac SPECT (scan date ?), LVEF (77%). [facility], May 2011, [facility], reportedly revealed no disease (data deficit) in setting of diabetic ketoacidosis associated with acute respiratory failure requiring mechanical ventilation x 5 days. Echocardiogram 04/12/16: LVEF 70%, mild MR, AV sclerosis Myocardial perfusion study 02/17/2017: Wnl, EF 70% Echo, 05/18/21, EF 60%, Mild MS [facility] PTCA RCA ISR: Patent Grafts. [...] block SJ PPM - GFT CVA 04/27 [facility], outpt monitor demonstrated Afib 40% carotid plaque with subjective work-up negative for seizures-data deficit, discharged on Eliquis and Plavix Dyslipidemia. Paroxysmal atrial fibrillation, anticoagulated with Eliquis, CHADVasc 7 Presentation for cardioversion September 2024 aborted due to subtherapeutic INR KENIA 10/12/2024: Large filling defect consistent with thrombus in the distal left atrial appendage with poor filling of the left atrial appendage, left atrium severely dilated with a PFO present, LVEF 60%, moderate concentric LVH, mild to moderate MR with multiple small jets and severe MAC with valvular and subvalvular involvement, ruptured chordae present heavily calcified, mild mitral stenosis, flow and pulmonary veins not consistent with severe MR-ECV canceled due to left atrial pended thrombus Obstructive sleep apnea: BiPAP mask tolerable. Current [...] for adhesions, remote. History of Present Illness: Alyssa Felipe is a 74-year-old female who presents today for external cardioversion due to persistent symptomatic atrial fibrillation. She has presented to [facility] several times in the last several months for cardioversions however has had subtherapeutic INR's. Most recently on 10/12/2024 she underwent T EE showing a left atrial appendage thrombus large in nature. Since then for the past 4 weeks her INRs have been therapeutic. Her INR is therapeutic today as well. She continues to feel tired and short of breath. No other changes since she was last here in October. She has been compliant with her warfarin. She denies any strokelike symptoms. Allergies Allergen Reactions Lipitor [Atorvastatin] Myalgia Morphine And Codeine Hallucinations Rosuvastatin Unknown - Low Severity Azathioprine Unknown (See Comments) Keflex [Cephalexin] Rash Penicillins Rash Pravachol [Pravastatin] Other (See Comments) Doesn't remember this rxn-from 3 yrs ago Tetracyclines & Related Rash Prior to Admission Medications Prescriptions Last Dose Informant Patient Reported? Taking? acetaminophen (TYLENOL) 500 MG tablet Yes No Take 2 tablets by mouth Every 6 (Six) Hours As Needed. aspirin 81 MG EC tablet Yes No Take 1 tablet by mouth Every Night. brimonidine (ALPHAGAN) 0.2 % ophthalmic solution Yes No Administer 1 drop to both eyes Every Night. Calcium Citrate-Vitamin D (CALCIUM + D PO) Self Yes No Take 1 tablet by mouth Daily. cetirizine (zyrTEC) 10 MG tablet Yes No Take 1 tablet by mouth Every Night. DULoxetine (CYMBALTA) 20 MG capsule Yes No Take 1 capsule by mouth Every Morning. DULoxetine (CYMBALTA) 60 MG capsule Yes No Take 1 capsule by mouth Every Morning. 60mg and 20mg in the morning ezetimibe (ZETIA) 10 MG tablet No No TAKE 1 TABLET DAILY Patient taking differently: Take 1 tablet by mouth Every Night. folic acid (FOLVITE) 1 MG tablet Yes No Take 1 tablet by mouth Daily. furosemide (LASIX) 20 MG tablet No No Take 1 tablet by mouth As Needed (take for edema, increase in weight 3 lbs.). gabapentin (NEURONTIN) 100 MG capsule Yes No Take by mouth 2 (Two) Times a Day. 300 mg po qam and 600 mg po qpm glucagon (GLUCAGEN) 1 MG injection Yes No Inject 1 mg under the skin into the appropriate area as directed. glucose (DEX4) 4 GM chewable tablet Yes No Chew 4 tablets. hydroxychloroquine (PLAQUENIL) 200 MG tablet Yes No Take 1 tablet by mouth Every Night. Insulin Glargine (TOUJEO SOLOSTAR SC) Self Yes No Inject 6 Units under the skin into the appropriate area as directed 2 (Two) Times a Day. Insulin Lispro (humaLOG) 100 UNIT/ML injection Yes No Inject 3 Units under the skin into the appropriate area as directed 3 (Three) Times a Day Before Meals. latanoprost (XALATAN) 0.005 % ophthalmic solution Yes No Administer 1 drop to both eyes Every Night. levothyroxine (SYNTHROID, LEVOTHROID) 125 MCG tablet Self Yes No Take 1 tablet by mouth Daily. metoprolol succinate XL (TOPROL-XL) 25 MG 24 hr tablet No No Take 1 tablet by mouth Daily. mycophenolate (CELLCEPT) 500 MG tablet Yes No Take 2 tablets by mouth 2 (Two) Times a Day. PT. HAS NOT STARTED THIS YET. nitroglycerin (NITROSTAT) 0.3 MG SL tablet No No 1 under the tongue as needed for angina, may repeat q5mins for up three doses Patient taking differently: 1 under the tongue as needed for angina, may repeat q5mins for up threedoses. PT. HAS NOT HAD TO TAKE THIS YET. pitavastatin calcium (LIVALO) 2 MG tablet tablet Yes No Take 1 tablet by mouth Every Night. spironolactone (ALDACTONE) 25 MG tablet Yes No Take 0.5 tablets by mouth Daily. Trelegy Ellipta 200-62.5-25 MCG/INH inhaler Yes No Inhale 1 puff Daily. Urine Glucose-Ketones Test (Keto-Diastix) strip Yes No Use daily as needed per endocrinology warfarin (COUMADIN) 5 MG tablet 11/18/2024 No Yes TAKE 1/2 TO 1 TABLET ONCE A DAY OR DIRECTED TAKE 7.5 mg on 10/12/2024. Patient taking differently: Take 1 tablet by mouth Every Night. Takes 7.5 mg every FRIDAY Current Facility-Administered Medications: acetaminophen (TYLENOL) tablet 650 mg, 650 mg, Oral, Q4H PRN, Ekaterina Rand PA etomidate (AMIDATE) injection 18 mg, 0.3 mg/kg, Intravenous, PRN, Naveen Velasquez MD etomidate (AMIDATE) injection, , , , fentaNYL citrate (PF) (SUBLIMAZE) injection 50-200 mcg, 50-200 mcg, Intravenous, Once PRN, Naveen Velasquez MD flumazenil (ROMAZICON) injection 0.5 mg, 0.5 mg, Intravenous, Once PRN, Naveen Velasquez MD midazolam (VERSED) injection 2-20 mg, 2-20 mg, Intravenous, Once PRN, Naveen Velasquez MD midazolam (VERSED) injection, , , , naloxone (NARCAN) injection 0.4 mg, 0.4 mg, Intravenous, Once PRN, Naveen Velasquez MD nitroglycerin (NITROSTAT) SL tablet 0.4 mg, 0.4 mg, Sublingual, Q5 Min PRN, Ekaterina Rand PA sodium chloride 0.9 % flush 10 mL, 10 mL, Intravenous, PRN, Ekaterina Rand PA sodium chloride 0.9 % flush 3 mL, 3 mL, Intravenous, Q12H, Ekaterina Rand PA sodium chloride 0.9 % infusion 40 mL, 40 mL, Intravenous, PRN, Ekaterina Rand PA Social History Socioeconomic History Marital status: Tobacco [...] urticaria, ulcers, sores. RESPIRATORY: + shortness of breath,- hemoptysis, cough, sputum. GI: No anorexia, nausea, [...] PSYCH: No history of depression, anxiety Vitals: 11/19/24 0905 11/19/24 0906 BP: 179/85 166/83 BP Location: Right arm Left arm Patient Position: Lying Lying Pulse: 60 Resp: 16 Temp: 97.1 ??F (36.2 ??C) TempSrc: Tympanic SpO2: 98% Weight: 60.9 kg (134 lb 4.2 oz) Height: 162.6 cm (64 ) Vital Sign Min/Max for last 24 hours Temp Min: 97.1 ??F (36.2 ??C) Max: 97.1 ??F (36.2 ??C) BP Min: 166/83 Max: 179/85 Pulse Min: 60 Max: 60 Resp Min: 16 Max: 16 SpO2 Min: 98 % Max: 98 % Flow (L/min) (Oxygen Therapy) Min: 2 Max: 2 No intake or output data in the 24 hours ending 11/19/24 1015 Physical Exam: GEN: Well nourished, Well- developed No acute distress HEENT: Normocephalic, Atraumatic, PERRLA, moist mucous membranes NECK: supple, NO JVD, no thyromegaly, no lymphadenopathy CARDIAC: S1S2 irregular, no murmur, gallop, rub LUNGS: Clear to ausculation, normal respiratory effort ABDOMEN: Soft, nontender, normal bowel sounds EXTREMITIES:No gross deformities, No clubbing, cyanosis, or edema SKIN: Warm, dry NEURO: No focal deficits PSYCHIATRIC: Normal affect and mood I personally viewed and interpreted the patient's EKG/Telemetry/lab data Data: Results from last 7 days Lab Units 11/19/24 0906 WBC 10*3/mm3 8.05 HEMOGLOBIN g/dL 10.3* HEMATOCRIT % 32.7* PLATELETS 10*3/mm3 340 Results from last 7 days Lab Units 11/19/24 0906 SODIUM mmol/L 132* POTASSIUM mmol/L 4.2 CHLORIDE mmol/L 91* CO2 mmol/L 27.0 BUN mg/dL 24.9* CREATININE mg/dL 1.02* GLUCOSE mg/dL 303* Results from last 7 days Lab Units 11/19/24 0906 PROTIME Seconds 30.8* INR 2.73* No intake or output data in the 24 hours ending 11/19/24 1015 Chest X-Ray: Imaging Results (Last 24 Hours) No results found for the last 24 hours. INR last 4 week: 10/18 was 2.14, 10/26 was 2.68, 11/02 was 2.63, 11/09 was 2.74. Telemetry: V paced underlying AFIB Assessment and Plan: 1. PAF: Now persistent for several months. She is very symptomatic in nature. She has a lot going on but we had a long discussion that the fact that she is in A-fib may make her be feeling worse. Will attempt cardioversion and hinduism of normal sinus rhythm to see if this makes her feel better.Will pursue KENIA prior to cardioversion even though her INRs have been therapeutic for the last 4 weeks as she did have a left atrial appendage thrombus. Left atrial appendage is clear, she will undergo ECV today. The risks, benefits, and alternatives of the procedure have been reviewed and the patient wishes to proceed. 2. CHB: PPM implant-Normal interrogation. 3 years on battery. 3. CAD: Remote CABG, CBI 2020 ISR RCA. Patent grafts. Normal EF, Mild MS 4. F - follows with Dr. Reyes. 5. Pleural Effusions: lupus related, follows with pulmonology at , s/p thoracentesis and pleurodesis Electronically signed by LUIS Morillo, 11/19/24, 10:15 AM EDT. Cosigned by Doron Nieves MD at 11/19/2024 10:44 AM EDT Associated attestation - Doron Nieves MD - 11/19/2024 10:44 AM EDT Recheck MAX with suspected thrombus 5 weeks ago. Pt prefers another physician. documented in this encounter Procedure Notes * Ekaterina Rand PA - 11/19/2024 1:33 PM EDT Patient underwent KENIA today which showed that her left atrial thrombus had resolved since she has been on therapeutic Coumadin. However, her mitral valve showed thickening and area of probable calcification, no evidence of vegetation or thrombus. She did not undergo external cardioversion after discussion with Dr. Velasquez, Dr. Oconnor, and her to let them know that her risk of stroke might be slightly higher due to the abnormality of her valve. She is being discharged home and we had plan to bring her back in for Tikosyn however she is on Plaquenil which is a major contraindication. We may have to bring her back in for an external cardioversion alone to see how she feels in normal sinus rhythm. Electronically signed by LUIS Morillo, 11/19/24, 1:35 PM EDT. Cosigned by Naveen Velasquez MD at 11/19/2024 2:15 PM EDT Associated attestation - Naveen Velasquez MD - 11/19/2024 2:15 PM EDT I have read the above note and agree documented in this encounter Plan of Treatment Upcoming Encounters Date Type Department Care Team (Late st Contact Info) Description 01/19/2025 1:45 PM EST Office Visit [facility] [address] [facility] [address] [place] [address] Naveen Velasquez MD [address] [facility] [address] [address] [place] [address] 05/04/2026 2:45 PM EST Office Visit [facility] [address] [place] [address] [address] [place] [address] Sujit Reyes MD [address] [place] [address] Scheduled Orders Name Type Priority Associated Diagnoses Orde r Schedule Cardiology Scan Cardiac Services Onc e for 1 Occurrences starting 11/25/2024 until 11/25/2024 documented as of this encounter Procedures Procedure Name Priority Date/Time Associated Diagnosis Comments SCANNED - TELEMETRY 11/19/2024 1 0:00 AM EDT KENIA W/ CONTRAST, COMPLETE DOPPLER, COLOR AND 3D STAT 11/19/2024 9:21 AM EDT PROTIME-INR STAT 11/19/2024 9:06 AM EDT CBC (NO DIFF) Routine 11/19/2024 9:06 AM EDT Persistent atrial fibrillation HEMOGLOBIN A1C Add-On 11/19/2024 9:06 AM EDT BASIC METABOLIC PANEL Routine 11/19/2024 9:06 AM EDT Persistent atrial fibrillation documented in this encounter Results * Telemetry Scan (11/19/2024 10:00 AM EDT) [facility] ORDERABLES Final Result * KENIA W/ CONTRAST, COMPLETE DOPPLER, COLOR AND 3D (11/19/2024 9:21 AM EDT) LVOT area 2.5 cm2 LVOT diam 1.80 cm TR max janna 360.0 cm/sec Ao pk janna 162.0 cm/sec Ao max PG 10.5 mmHg Ao mean PG 6.0 mmHg Ao V2 VTI 36.3 cm AI P1/2t 554.4 msec MV max PG 9.0 mmHg MV mean PG 3.0 mmHg MV V2 VTI 36.1 cm TR max PG 51.8 mmHg Ao root diam 2.9 cm Anatomical Region Laterality Modality Other Narrative 11/19/2024 2:49 PM EDT Left ventricular systolic function is normal. Left ventricular ejection fraction appears to be 51 - 55%. The left atrial cavity is severely dilated. The right atrial cavity is mildly dilated. There is mild calcification of the aortic valve. Mild to moderate aortic valve regurgitation is present. Moderate mitral valve regurgitation is present. Severe mitral annular calcification. Mobile density attached to the mitral valve chordae measuring 0.9 x 0.6 cm, this appears to be related to valvular and chordal chordal degeneration.. The chordae are thickened and calcified. Moderate tricuspid valve regurgitation is present. Estimated right ventricular systolic pressure from tricuspid regurgitation is markedly elevated (>55 mmHg). I supervised and directed an independent trained observer with the assistance of monitoring the patient's level of consciousness and physiological status throughout the procedure. Intraoperative service time of 15 minutes Left Ventricle Left ventricular systolic function is normal. Left ventricular ejection fraction appears to be 51 - 55%. Right Ventricle Normal right ventricular cavity size and systolic function noted. Left Atrium The left atrial cavity is severely dilated. Doppler interrogation shows severely reduced flow within the left atrial appendage. No evidence of a left atrial appendage thrombus was present. No evidence of an atrial septal defect present. Right Atrium The right atrial cavity is mildly dilated. An electronic lead is present in the right atrium. Mitral Valve Severe mitral annular calcification is present. Moderate mitral valve regurgitation is present. No significant mitral valve stenosis is present. Tricuspid Valve The tricuspid valve is structurally normal with no significant stenosis present. Moderate tricuspid valve regurgitation is present. Estimated right ventricular systolic pressure from tricuspid regurgitation is markedly elevated (>55 mmHg). Aortic Valve The aortic valve is abnormal in structure. There is mild calcification of the aortic valve. Mild to moderate aortic valve regurgitation is present. No hemodynamically significant aortic valve stenosis is present. Pulmonic Valve The pulmonic valve is structurally normal with no significant stenosis present. There is mild pulmonic valve regurgitation present. Pericardium The pericardium is normal. There is no evidence of pericardial effusion. . Greater Vessels No dilation of the aortic root is present. Study Quality The study is technically adequate for diagnosis. Atrial fibrillation was the predominant rhythm observed during the procedure. Enhancement Agent Details Verbal consent was obtained from the patient to use Lumason image enhancer in order to optimize the study. The use of Lumason was indicated to improve delineation of the left ventricular endocardial border. 5 mL of Lumason was manually activated. A total of 2 mL of the activated Lumason was administered and the remaining contrast was wasted and discarded. No adverse reaction to image enhancer was noted. KENIA Procedure Details 3D rendering, reconstruction & interpretation was performed under concurrent supervision. The 3D imaging probe was used to image the heart. Acquisitions were captured in real-time 3D and full volume to assess LV EF. Informed consent for Transesophageal Echocardiogram, and use of contrast as needed, was obtained prior to the procedure. The procedure was performed in the Cardio-Vascular/Close observation unit. Patient was noted to be in a fasting state, with a peripheral IV in place. A bite block was placed for probe protection. Moderate sedation was utilized. The following medication(s) were administered during the procedure: 50 mcg of Fentanyl 2 mg of Versed An adult multi-frequency, multiplane transesophageal echocardiographic endoscope was inserted and manipulated in the standard fashion to achieve multiplane views. Transesophageal probe was able to be passed without difficulty. Usual basal, mid-esophageal, transgastric, and aortic views were obtained. The patient's vital signs, including blood pressure, heart rate, pulse oximetry, and cardiac rhythm were monitored throughout the procedure. Vitals signs remained stable throughout the study. Post-procedural recovery was completed in the Cardio-Vascular/Close Observation Unit, The patient tolerated the procedure without evidence of oropharyngeal or esophageal trauma. Ekaterina SMITH CV ECHO ORDERABLES Final Resul t * (ABNORMAL) Hemoglobin A1c (11/19/2024 9:06 AM EDT) Hemoglobin A1C 8.79(H) 4.80 - 5.60 % 11/19/2024 10:50 AM EDT [facility] Blood Line / Unknown 11/19/2024 9: 06 AM EDT 11/19/2024 9:22 AM EDT Narrative [facility] - 11/19/2024 10:50 AM EDT Hemoglobin A1C Ranges: Increased Risk for Diabetes 5.7% to 6.4% Diabetes >= 6.5% Diabetic Goal < 7.0% Naveen Velasquez MD LAB BLOOD ORDERABLES Final R esult [facility]
[address] [place] [address], * (ABNORMAL) CBC (No Diff) (11/19/2024 9:06 AM EDT) WBC 8.05 3.40 - 10.80 10*3/mm3 11/19/2024 9:26 AM EDT [facility] RBC 3.35(L) 3.77 - 5.28 10*6/mm3 11/19/2024 9:26 AM EDT [facility] Hemoglobin 10.3(L) 12.0 - 15.9 g/dL 11/19/2024 9:26 AM EDT [facility] Hematocrit 32.7(L) 34.0 - 46.6 % 11/19/2024 9:26 AM EDT [facility] MCV 97.6(H) 79.0 - 97.0 fL 11/19/2024 9:26 AM EDT [facility] MCH 30.7 26.6 - 33.0 pg 11/19/2024 9:26 AM EDT [facility] MCHC 31.5 31.5 - 35.7 g/dL 11/19/2024 9:26 AM EDT [facility] RDW 15.1 12.3 - 15.4 % 11/19/2024 9:26 AM EDT [facility] RDW-SD 54.2(H) 37.0 - 54.0 fl 11/19/2024 9:26 AM EDT [facility] MPV 9.3 6.0 - 12.0 fL 11/19/2024 9:26 AM EDT [facility] Platelets 340 140 - 450 10*3/mm3 11/19/2024 9:26 AM EDT [facility] Blood Line / Unknown 11/19/2024 9: 06 AM EDT 11/19/2024 9:22 AM EDT us Ekaterina SMITH LAB BLOOD ORDERABLES Final Res ult [facility]
[address] [place] [address], * (ABNORMAL) Basic Metabolic Panel (11/19/2024 9:06 AM EDT) Glucose 303(H) 65 - 99 mg/dL 11/19/2024 9:59 AM T [facility] BUN 24.9(H) 8.0 - 23.0 mg/dL 11/19/2024 9:59 AM [facility] Creatinine 1.02(H) 0.57 - 1.00 mg/dL 11/19/2024 9:59 AM EDT [facility] Sodium 132(L) 136 - 145 mmol/L 11/19/2024 9:59 AM EDT [facility] Potassium 4.2 3.5 - 5.2 mmol/L 11/19/2024 9:59 AM EDT [facility] Chloride 91(L) 98 - 107 mmol/L 11/19/2024 9:59 AM EDT [facility] CO2 27.0 22.0 - 29.0 mmol/L 11/19/2024 9:59 AM EDT [facility] Calcium 8.9 8.6 - 10.5 mg/dL 11/19/2024 9:59 AM T [facility] BUN/Creatinine Ratio 24.4 7.0 - 25.0 11/19/2024 9:59 AM T [facility] Anion Gap 14.0 5.0 - 15.0 mmol/L 11/19/2024 9:59 AM [facility] eGFR 58.2(L) >60.0 mL/min/1.7 3 11/19/2024 9:59 AM T [facility] Blood Line / Unknown 11/19/2024 9: 06 AM EDT 11/19/2024 9:21 AM EDT [facility] - 11/19/2024 9:59 AM EDT GFR Categories in Chronic Kidney [...] does not include race as a factor Ekaterina SMITH LAB BLOOD ORDERABLES Final Res ult [facility]
[address] [place] [address], * (ABNORMAL) Protime-INR (11/19/2024 9:06 AM EDT) Protime 30.8(H) 12.2 - 15.3 Seconds 11/19/2024 9:40 AM EDT [facility] INR 2.73(H) 0.89 - 1.12 11/19/2024 9:40 AM EDT [facility] Blood Line / Unknown 11/19/2024 9: 06 AM EDT 11/19/2024 9:22 AM EDT Ekaterina SMITH LAB BLOOD ORDERABLES Final Res ult Performing Organization Address [facility] Co de Phone Number [facility]
[address] [place] [address], documented in this encounter Visit Diagnoses Diagnosis Paroxysmal atrial fibrillation Atrial fibrillation Persistent atrial fibrillation Atrial fibrillation documented in this encounter Administered Medications Inactive Administered Medications - up to 3 most recent administrations Medication Order MAR Action Action Date Dose Rate Site acetaminophen (TYLENOL) tablet 650 mg 650 mg, Oral, Every 4 Hours PRN, Mild Pain, Starting on Fri11/19/24 at 0909, Based on patient request - if ordered for moderate or severe pain, provider allows for administration of a medication prescribed for a lower pain scale. Do not exceed 4 grams of acetaminophen in a 24 hr period. Max dose of 2gm for AST/ALT greater than 120 units/L. If given for pain, use the following pain scale: Mild Pain = Pain Score of 1-3, CPOT 1-2 Moderate Pain = Pain Score of 4-6, CPOT 3-4 Severe Pain = Pain Score of 7-10, CPOT 5-8 etomidate (AMIDATE) injection 18 mg 18 mg (rounded from 18.27 mg = 0.3 mg/kg 60.9 kg), Intravenous, As Needed, NEEDE FOR ECV SEDATION, Starting on Fri11/19/24 at 0912 fentaNYL citrate (PF) (SUBLIMAZE) injection 50-200 mcg 50-200 mcg, Intravenous, Once As Needed, Severe Pain, Sedation, Starting on Fri11/19/24 at 0910, For 1 dose, Use filter needle to [...] / Trauma / Sedation Medication, Starting on Fri11/19/24 at 1107 Given 11/19/2024 11:07 AM EDT 50 mcg flumazenil (ROMAZICON) injection 0.5 mg 0.5 mg, Intravenous, Once As Needed, Sedation Reversal, Starting on Fri11/19/24 at 0910, For 1 dose, give IV over 15-30 seconds midazolam (VERSED) injection 2-20 mg 2-20 mg, Intravenous, Once As Needed, Sedation, Starting on Fri11/19/24 at 0910, For 1 dose, If given IV Push: give slowly over at least 2 minutes, unless provider at bedside for induction. (JODIE) midazolam (VERSED) injection Code / Trauma / Sedation Medication, Starting on Fri11/19/24 at 1107 Given 11/19/2024 11:07 AM EDT 2 mg naloxone (NARCAN) injection 0.4 mg 0.4 mg, Intravenous, Once As Needed, Opioid Reversal, Starting on Fri11/19/24 at 0910, For 1 dose nitroglycerin (NITROSTAT) SL tablet 0.4 mg 0.4 mg, Sublingual, Every 5 Minutes PRN, Chest Pain, Starting on Fri11/19/24 at 0909, May administer up to 3 doses per episode May administer up to 3 doses per episode. Hold if SBP less than 100. sodium chloride 0.9 % flush 10 mL 10 mL, Intravenous, As Needed, Line Care, Starting on Fri11/19/24 at 0909 sodium chloride 0.9 % flush 3 mL 3 mL, Intravenous, Every 12 Hours Scheduled, First dose on Fri11/19/24 at 0911 sodium chloride 0.9 % infusion 40 mL 40 mL, Intravenous, at 100 mL/hr, As Needed, Line Care, Starting on Fri11/19/24 at 0909, Following administration of an IV intermittent medication, flush line with 40mL NS at 100mL/hr. documented in this encounter Active and Recently Administered Medications Times are shown in EDT. Scheduled Medication Order 11/17/2024 11/18/2024 11/19/2024 sodium chloride 0.9 % flush 3 mL 3 mL, Intravenous, Every 12 Hours Scheduled, First dose on Fri11/19/24 at 0911 0911 (Due) PRN Medication Order 11/17/2024 11/18/2024 11/19/2024 acetaminophen (TYLENOL) tablet 650 mg 650 mg, Oral, Every 4 Hours PRN, Mild Pain, Starting on Fri11/19/24 at 0909, Based on patient request - if ordered for moderate or severe pain, provider allows for administration of a medication prescribed for a lower pain scale. Do not exceed 4 grams of acetaminophen in a 24 hr period. Max dose of 2gm for AST/ALT greater than 120 units/L. If given for pain, use the following pain scale: Mild Pain = Pain Score of 1-3, CPOT 1-2 Moderate Pain = Pain Score of 4-6, CPOT 3-4 Severe Pain = Pain Score of 7-10, CPOT 5-8 etomidate (AMIDATE) injection 18 mg 18 mg (rounded from 18.27 mg = 0.3 mg/kg 60.9 kg), Intravenous, As Needed, NEEDE FOR ECV SEDATION, Starting on Fri11/19/24 at 0912 fentaNYL citrate (PF) (SUBLIMAZE) injection 50-200 mcg 50-200 mcg, Intravenous, Once As Needed, Severe Pain, Sedation, Starting on Fri11/19/24 at 0910, For 1 dose, Use filter needle to [...] = Pain Score of 7-10, CPOT 5-8 1002 (Due) fentaNYL citrate (PF) (SUBLIMAZE) injection (COMPLETED) Code / Trauma / Sedation Medication, Starting on Fri11/19/24 at 1107 1107 (Given - Provid er: Jodie English RN) flumazenil (ROMAZICON) injection 0.5 mg 0.5 mg, Intravenous, Once As Needed, Sedation Reversal, Starting on Fri11/19/24 at 0910, For 1 dose, give IV over 15-30 seconds midazolam (VERSED) injection 2-20 mg 2-20 mg, Intravenous, Once As Needed, Sedation, Starting on Fri11/19/24 at 0910, For 1 dose, If given IV Push: give slowly over at least 2 minutes, unless provider at bedside for induction. (JODIE) 1001 (Due) midazolam (VERSED) injection (COMPLETED) Code / Trauma / Sedation Medication, Starting on Fri11/19/24 at 1107 1107 (Given - Provid er: Jodie English RN) naloxone (NARCAN) injection 0.4 mg 0.4 mg, Intravenous, Once As Needed, Opioid Reversal, Starting on Fri11/19/24 at 0910, For 1 dose nitroglycerin (NITROSTAT) SL tablet 0.4 mg 0.4 mg, Sublingual, Every 5 Minutes PRN, Chest Pain, Starting on Fri11/19/24 at 0909, May administer up to 3 doses per episode May administer up to 3 doses per episode. Hold if SBP less than 100. sodium chloride 0.9 % flush 10 mL 10 mL, Intravenous, As Needed, Line Care, Starting on Fri11/19/24 at 0909 sodium chloride 0.9 % infusion 40 mL 40 mL, Intravenous, at 100 mL/hr, As Needed, Line Care, Starting on Fri11/19/24 at 0909, Following administration of an IV intermittent medication, flush line with 40mL NS at 100mL/hr. documented in this encounter Care Teams Fourth Mate Relationship Specialty Start Date End Date Alisa Kunz DO [address] [place] [address] PCP - General Internal Medicine 04/26/21 documented as of this encounter
--- OUTSIDE RECORDS SUMMARY | 2024-11-20 12:56 | XMS_ITS | Encounter Summary ---
Author Organization [facility] Address [address] [place] [address] Care Team Providers Care Desk Pens Assembler Name Role Phone Pcp, No Primary Care Provider Unavailabl e Alisa Kunz DO Unavailable [phone] Kodi Bustos DO Unavailable [phone] Sujit Arriola MD Unavailable [phone] Sujit Reyes MD Unavailable [phone] Zee Lazar DO Unavailable [phone] Reason for Referral * Consultation (Routine) - Authorized Specialty Diagnoses / Procedures Referred By Luis Armando mckeon Referred To Contact Neurology Diagnoses Cerebrovascular accident (CVA), unspecified mechanism (CMS/HCC) Cerebrovascular accident (CVA) due to embolism of right posterior cerebral artery Isael Sage MD [address] [place] [address] Phone: tel: fax: [facility] [address] [place] [address] Phone: tel: fax: Referral ID Status Reason Start Date Expiration Date Visits Requested Visits Authorized [id number] Authorized Specialty Services Required 11/29/2024 05/31/2026 1 1 Scheduling Instructions F/U in stroke Neurology Reason for Visit * Reason Comments Stroke Alert Red * Auth/Cert (Routine) Specialty Diagnoses / Procedures Referred By Luis Armando t Referred To Contact Diagnoses Acute ischemic stroke (CMS/HCC) Marisabel Subramanian MD [address] [address] Phone: tel: fax: [facility] [address] [place] [address] Phone: tel: Referral ID Status Reason Start Date Expiration Date Visits Re quested Visits Authorized [id number] 1 1 Encounter Details Date Type Department Care Team (Latest Contact Info) Description 11/20/2024 12:56 PM EDT - 11/29/2024 4:33 PM EDT Hospital Encounter [facility] [address] [place] [address] Arlette Soliman MD [address] [place] [address] Marisabel Subramanian MD [address] [address] Cirilo Majano MD [address] [address] Isael Sage MD [address] [address] Cerebrovascular accident (CVA) due to embolism of right posterior cerebral artery (CMS/HCC) (Primary Dx); Cerebrovascular accident (CVA), unspecified mechanism (CMS/HCC) Discharge Disposition: Shelter Facility Social History Tobacco Use Types Packs/Day Years Used Date Smoking Tobacco: Never Assessed Social Connection and Isolation Panel Answer Date [...] Recorded Patient Health Questionnaire-2 Score 0 [facility] - [facility]ational [...] afraid of your partner or ex-partner? No 11/22/2024 Within the last year, have y ou been humiliated or emotionally abused in other ways by your partner or ex-partner? No Within the last year, have y ou been kicked, hit, slapped, or otherwise physically hurt by your partner or ex-partner? No 11/22/2024 Within the last year, have y ou been raped or forced to have any kind of sexual activity by your partner or ex-partner? No 11/22/2024 AUDIT-C Answer Date Recorded Q1: How often [...] the money to buy more. Never true 11/23/19 25 Within the past 12 months, t he food you bought just didn't last and you didn't have money to get more. Never true 11/22/2024 [facility] - Transportation Answer Date Re corded In the past 12 months, has l ack of transportation kept you from medical appointments or from getting medications? No 11/08 In the past 12 months, has l ack of transportation kept you from meetings, work, or from getting things needed for daily living? No 11/22/2024 Housing Stability Vital Sign Answer Hong e Recorded In the last 12 months, was t here a time when you were not able to pay the mortgage or rent on time? No 11/22/2024 In the past 12 months, how m any times have you moved where you were living? 0 11/22/2024 At any time in the past 12 m [facility], were you homeless or living in a penitentiary (including now)? No 11/22/2024 [facility] Utilities Answer Date Recorded In the past 12 months has e Square, gas, oil, or water company threatened to shut off services in your home? No 11/22/2024 CAGE ASSESSMENT Answer Date Recorded Cage unable [...] drink first t anselmo in the morning (EYE-COKEMAN) to steady your nerves or to get rid of a hangover? 0 08/14/2024 CAGE Questionnaire Score 0 025 PHQ-2A Answer Date Recorded Depression Risk 0 09/18/2022 Comments No Sex and Gender Information Value Date Recorded Sex Assigned at Female 11/01/2020 9:33 PM EDT Legal Sex Female 8:14 PM EDT Gender Identity Female 11/01/2020 9:33 PM EDT Sexual Orientation Straight 11/01/2020 9: 33 PM EDT documented as of this encounter Last Filed Vital Signs Vital Sign Reading Time Taken Comments Blood Pressure 136/56 11/29/2024 11:35 AM EDT Pulse 61 11/29/2024 11:35 AM EDT Temperature 36.8 C (98.2 F) 11/29/2024 11:35 AM EDT Respiratory Rate 17 11/29/2024 11:35 AM EDT Oxygen Saturation 98% 11/29/2024 11:35 AM EDT Inhaled Oxygen Concentration - - Weight 64.5 kg (142 lb 3.2 oz) 11/29/2024 5:49 A M EDT Height 162.6 cm (5' 4.02 ) 11/21/2024 10:14 AM E DT Body Mass Index 24.4 11/21/2024 10:14 AM EDT documented in this encounter Functional Status * Calculated C-SSRS Risk Score (Lifetime/Recent) Answer Date of Assessment Author No Risk Indicated 11/29/2024 8:00 AM EDT Nikky Tidwell RN * Question Answer Date of Assessment Author 1. Wish to be (Past 1 Month) No 025 8:00 AM EDT Nikky Tidwell RN 2. Non-Specific Active Suici dillon Thoughts (Past 1 Month) No 11/29/2024 8:00 AM EDT Nikky Tidwell RN 6. Suicidal Behavior (Lifetime) No 8:00 AM EDT Nikky Tidwell RN documented as of this encounter Medications at Time of Discharge acetaminophen (Tylenol) 500 MG tablet Take 2 tablets by mouth every 6 hours as needed. Blood Glucose Monitoring Suppl (Blood Glucose Monitor System) w/Device kit Test blood sugars twice a day to calibrate cgm. Dx E10.65 1 kit 09/16/2024 brimonidine 0.2 % OP ophthalmic solution Administer 1 drop into both eyes nightly. 01/21/2024 Calcium Carbonate-Vitamin D (calcium-vitamin D) 500-200 MG-UNIT tablet Take 1 tablet by mouth daily. cetirizine (ZyrTEC) 10 MG tablet Take 1 tablet by mouth every evening. DULoxetine (Cymbalta) [address] capsule Take 1 capsule (20 mg) by mouth 1 (one) time each day in the morning. Taking 80mg total 90 capsule 3 03/23/2024 DULoxetine (Cymbalta) [address] capsule Take 1 capsule by mouth every morning. 10/26/2024 ezetimibe (Zetia) 10 MG tablet Take 1 tablet by mouth nightly. 05/29/2020 ferrous sulfate 324 (65 Fe) MG EC tablet Take 1 tablet by mouth daily with breakfast. Do not crush, chew, or split. Fluticasone-Umeclid in-Vilant (Trelegy Ellipta) 200-62.5-25 MCG/ACT aerosol powder Inhale 1 puff every morning. 60 each 11/19/2024 folic acid (Folvite) 1 MG tablet Taking 1 tablet five days of the week 90 tablet 1 07/16/2024 gabapentin (Neurontin) 300 MG capsule Take 2 capsules by mouth 2 times a day. 120 capsule 2 11/01/2024 Glucagon, rDNA, (Glucagon Emergency) 1 MG kit 1 mg as needed. 02/04/2024 glucose blood test strip Use to test blood sugars twice a day to calibrate cgm. Dx 10.65 100 each 12 09/16/2024 hydroxychloroquine (Plaquenil) 200 MG tablet Take 1 tablet by mouth nightly. 09/15/2024 Lancets misc Use twice a day to calibrate cgm Dx E10.65 100 each 3 09/16/2024 latanoprost (Xalatan) 0.005 % ophthalmic solution Administer 1 drop into both eyes nightly. 01/21/2024 levothyroxine (Synthroid, Levoxyl) 125 MCG tablet Take 1 tablet (125 mcg) by mouth 1 (one) time each day before breakfast. 90 tablet 3 12/31/2023 lidocaine (Xylocaine) 2 % solutionIndications :Recurrent aphthous ulcer Take 5 mL by mouth as needed for mild pain. Swish and spit: Every 4 hours as needed. 100 mL 11/15/2024 metoprolol succinate XL (Toprol-XL) 25 MG 24 hr tablet Take 1 tablet by mouth nightly. 04/13/2020 mycophenolate (CellCept) 500 MG tabletIndications:S ystemic lupus erythematosus (SLE) in adult (CMS/[facility]) Take 2 tablets by mouth 2 times a day. 360 tablet 1 08/27/2024 nitroglycerin (Nitrostat) 0.[address] 1 tablet under the tongue every 5 minutes as needed. 04/12/2024 oxygen (O2) gas Inhale 2 L continuously. via nasal canula Pitavastatin Calcium (Livalo) 4 MG tabletIndications:T ype 1 diabetes mellitus with other specified complication,Dyslip idemia Take 1 tablet by mouth daily. 90 tablet 3 10/29/2024 Probiotic Product (acidophilus probiotic blend) capsule Take 1 capsule by mouth daily. Urine Glucose-Ketones Test (Keto-Diastix) strip 1 strip by In Vitro route daily. warfarin (Coumadin) 5 MG tablet Take 2.5 mg on Friday and 5mg the rest of the week and follow up with your warfarin pharmacist. 30 tablet 07/15/2024 sodium chloride 0.9% solution 100 mL with piperacillin-tazoba ctam 4.5 (4-0.5) g reconstituted solution 4.5 gIndications:Cerebr ovascular accident (CVA) due to embolism of right posterior cerebral artery Infuse 4.5 g into a venous catheter every 6 hours at 33.3 mL/hr over 3 hours for 1 day. 11/29/2024 spironolactone (Aldactone) 25 MG tablet Take 0.5 tablets by mouth daily. 09/16/2024 acetaminophen (Tylenol) 500 MG tablet Take 2 tablets by mouth every 6 hours as needed. aspirin 81 MG EC tablet Take 1 tablet by mouth every evening. cetirizine (ZyrTEC) 10 MG tablet Take 1 tablet by mouth nightly. DULoxetine (Cymbalta) [address] capsule Take 1 capsule by mouth every morning. 11/01/2024 DULoxetine (Cymbalta) [address] capsule Take 1 capsule by mouth daily. Do not crush or chew. Take in addition to one 20mg capsule for a total of 80mg daily. ezetimibe (Zetia) 10 MG tablet Take 1 tablet by mouth daily. 09/06/2024 furosemide (Lasix) 80 MG tablet Take 1 tablet by mouth daily. 30 tablet 2 10/20/2024 furosemide (Lasix) 80 MG tablet Take 1 tablet by mouth daily. 11/15/2024 gabapentin (Neurontin) 300 MG capsule Take 2 capsules by mouth 2 times a day. 120 capsule 11/29/2024 HumaLOG KWIKPEN 100 UNIT/ML injection pen Inject 3 Units under the skin 3 times a day with meals. 08/28/2024 hydroxychloroquine (Plaquenil) 200 MG tabletIndications:S ystemic lupus erythematosus (SLE) in adult ([facility]) Take 1.5 tablets by mouth daily. 45 tablet 5 09/15/2024 insulin glargine (Toujeo SoloStar) 300 UNIT/ML injection pen (1 UNIT DIAL)Indications:Ty pe 1 diabetes mellitus with hyperglycemia Inject 14 Units under the skin every morning. 4.5 mL 3 08/04/2024 5 insulin lispro (HumaLOG KWIKPEN) 100 UNIT/ML injection penIndications:Type 1 diabetes mellitus with hyperglycemia Inject 2-6 units before meals plus 1:60>150. Max tdd 30 units 30 mL 2 08/04/2024 ipratropium (Atrovent) 0.06 % nasal sprayIndications:Gu statory rhinitis Administer 2 sprays into each nostril 4 times a day. 15 mL 12 11/15/2024 latanoprost (Xalatan) 0.005 % ophthalmic solution Administer 1 drop into both eyes nightly. levothyroxine (Synthroid, Levoxyl) 125 MCG tablet Take 1 tablet by mouth daily with breakfast. 11/01/2024 mycophenolate (Cellcept) 500 MG tablet Take 2 tablets by mouth 2 times a day. 08/27/2024 Pitavastatin Calcium 4 MG tablet Take 1 tablet by mouth daily. 11/15/2024 sucralfate (Carafate) 1 GM/10ML suspension Take 10 mL by mouth 4 times a day. 473 mL 11 10/07/2024 Toujeo SoloStar 300 UNIT/ML injection pen (1 UNIT DIAL) Inject 6 Units under the skin 2 times a day. 08/28/2024 Trelegy Ellipta 200-62.5-25 MCG/ACT aerosol powder Take 1 puff by mouth daily. 11/19/2024 Warfarin Sodium (warfarin, Coumadin, intermittent dosing) Take as directed per After Visit Summary. 11/29/2024 documented as of this encounter Miscellaneous Notes * Nikky Holder RN - 11/29/2024 3:24 PM EDT Images from the original note were not included. [id number] Learning About the Risk of Heart Attack and Stroke With Diabetes How are diabetes, heart attack, and stroke connected? For some people, diabetes can cause problems that increase the risk of a heart attack or stroke. Many things can lead to a heart attack or stroke. These include high blood sugar, insulin resistance, high cholesterol, and high blood pressure. Lifestyle and genetics may also play a part. But here's the good news: The things you're doing to stay healthy with diabetes also help your heart and blood vessels. That means eating healthy foods, quitting smoking, getting exercise, and staying at a healthy weight. What increases your risk for heart attack and stroke? When you have diabetes, your risk for heart attack and stroke is even higher if you have: ? High blood pressure. It pushes blood through the arteries with too much force. Over time, this damages the griffiths of the arteries. ? High cholesterol. It causes the buildup of a kind of fat inside the blood vessel griffiths. This buildup can lower blood flow to the heart muscle and raise your risk for having a heart attack or stroke. ? Kidney damage. It shares many of the risk factors for heart attack and stroke (such as high bloodsugar, high blood pressure, and high cholesterol). How do you keep your heart healthy when you have diabetes? Managing your diabetes and keeping your heart and blood vessels healthy are both important. Here are some things you can do. ? Test your blood sugar levels and get your diabetes tests on schedule. Try to keep your numbers within your target range. ? Keep track of your blood pressure. Your doctor will give you a goal that's right for you. If yourblood pressure is high, your treatment may also include medicine. Changes in your lifestyle, such as staying at a healthy weight, may also help you lower your blood pressure. ? Eat heart-healthy foods. These include vegetables, fruit, nuts, beans, lean meat, fish, and wholegrains. Limit sodium, alcohol, and sugar. ? Work with your doctor or inclusion paraeducator to learn which exercises are safe for you. Walking is a good choice. Bit by bit, increase the amount you walk every day. Try for at least 30 minutes on most days of the week. ? Don't smoke. Smoking can make diabetes worse and increase your risk of heart attack or stroke. Ifyou need help quitting, talk to your doctor about stop- smoking programs and medicines. These can increase your chances of quitting for good. ? Take medicines as directed by your doctor. For example, your doctor may suggest taking a statin or daily aspirin. Some diabetes medicine can also lower your risk for heart attack and stroke. Current as of: December 09, 2022 Content Version: 14.0 Care instructions adapted under license by your healthcare professional. If you have questions about a medical condition or this instruction, always ask your healthcare professional. [employer] disclaims any warranty or liability for your use of this information. ?? [id number] [employer]. * [facility]ilah OnIR - Nikky Tidwell RN - 11/29/2024 3:24 PM EDT Images from the original note were not included. [id number] Caring for Yourself After Stroke You have been diagnosed with a stroke, or with a TIA (transient ischemic attack). Or you have been identified as having a high risk for stroke. During a stroke, blood stops flowing to part of your brain. This can damage areas in the brain that control other parts of the body. Symptoms after a stroke depend on which part of the brain has been affected. Stroke risk factors Once you?ve had a stroke, you?re at greater risk for another one. Listed below are some other factors that can increase your risk for a stroke: ? High blood pressure ? High cholesterol ? Cigarette or cigar smoking, or exposure to second hand smoke ? Diabetes ? Carotid or other artery disease ? Atrial fibrillation, atrial flutter, or other heart disease ? Not being physically active ? Obesity ? Certain blood disorders (such as sickle cell anemia) ? Excessive alcohol use ? Abuse of street drugs ? Race ? Gender ? Family history of stroke ? Diet high in salty, fried, or greasy foods Changes in daily living Doing your regular tasks may be difficult after you?ve had a stroke, but you can learn new ways to manage your daily activities. In fact, doing daily activities may help you to regain muscle strengthand bring back function to affected limbs. Be patient, give yourself time to adjust, and appreciatethe progress you make. Daily activities You may be at risk of falling. Make changes to your home to help you walk more easily. A therapist will decide if you need an assistive device to walk safely. You may need to see an occupational therapist or physical therapist to learn new ways of doing things. For example, you may need to make adjustments when bathing or dressing: Tips for showering or bathing ? Test the water temperature with a hand or foot that was not affected by the stroke. ? Use grab bars, a shower seat, a hand-held showerhead, and a long-handled brush. Tips for getting dressed ? Dress while sitting, starting with the affected side or limb. ? Wear shirts that pull easily over your head. Wear pants or skirts with elastic waistbands. ? Use zippers with loops attached to the pull tabs. Lifestyle changes ? Take your medicines exactly as directed. Don?t skip doses. ? Begin an exercise program. Ask your provider how to get started. Also ask how much activity you should try to get on a daily or weekly basis. You can benefit from simple activities such as walking or gardening. ? Limit alcohol intake. Men should have no more than 2 alcoholic drinks a day. Women should limit themselves to 1 alcoholic drink per day. ? Know your cholesterol level. Follow your provider?s recommendations about how to keep cholesterolunder control. ? If you are a smoker, quit now. Join a stop-smoking program to improve your chances of success. Ask your provider about medicines or other methods to help you quit. ? Learn stress management techniques to help you deal with stress in your home and work life. Diet Your healthcare provider will give you information on dietary changes that you may need to make, based on your situation. Your provider may recommend that you see a registered dietitian for help withdiet changes. Changes may include: ? Reducing fat and cholesterol intake ? Reducing salt (sodium) intake, especially if you have high blood pressure ? Eating more fresh vegetables and fruits ? Eating more lean proteins, such as fish, poultry, and beans and peas (legumes) ? Eating less red meat and processed meats ? Using low-fat dairy products ? Limiting vegetable oils and nut oils ? Limiting sweets and processed foods such as chips, cookies, and baked goods Follow-up care ? Keep your medical appointments. Close follow-up is important to stroke rehabilitation and recovery. ? Some medicines require blood tests to check for progress or problems. Keep follow-up appointmentsfor any blood tests ordered by your providers. Call 911 Call 911 right away if you have any of the following symptoms of stroke: ? Weakness, tingling, or loss of feeling on one side of your face or body ? Sudden double vision or trouble seeing in one or both eyes ? Sudden trouble talking or slurred speech ? Trouble understanding others ? Sudden, severe headache ? Dizziness, loss of balance, or a sense of falling ? Blackouts or seizures BE FAST -- be sure to know these signs of a stroke: B alance ? Does the person have a sudden loss of balance or coordination? E yes ? Does the person have sudden trouble seeing or blurred vision in one or both eyes? F yokasta ? Does one side of the face droop? ? Ask the person to smile. Does their smile seem normal? A maryanne ? Is one arm weak or numb? ? Ask the person to raise both arms. Does one arm drift downward? S peech ? Is speech slurred or garbled? ? Ask the person to repeat an easy sentence. T merline ? If the person shows any of these signs, call 911 right away! This is an emergency! Call [address] yourself to the hospital! Last Reviewed Date: 2014 00:00:00 * [facility] On[facility] - Vikram England PharmD - 11/29/2024 2:41 PM EDT Images from the original note were not included. Warfarin - Video Learn how Warfarin works to prevent blood clots from forming, getting bigger, or traveling through the body. Also, learn the possible side effects to be aware of, and how to properly use and store this medication. To view the video go to this web address: [email or web address] Or, scan this QR code with your smart phone ?? [facility] * Clinician Note - Floresita Karimi CCC-INSULATOR CUTTER AND FORMER - 11/29/2024 2:41 PM EDT INSULATOR CUTTER AND FORMER attempted to f/u for repeat MBS. Per team and chart review, pt is discharging to subacute rehaband will not be available for MBS. Dysphagia services should continue at the rehab facility. * Discharge Summary - Dipika Wynn MBBS - 11/29/2024 1:56 PM EDT Hospitalization Admit Date/Time: 11/20/2024 12:56 PM Admitting Attending: Marisabel Subramanian Discharge Date: 11/29/2024 Discharge Attending Physician: Isael Sage MD PCP name and Address: Pcp, Heather [address] [facility] / [place] [address] Referring provider name and address: No referring provider defined for this encounter. Chief Concern, Brief History of Present Illness, and Hospital Course For patients discharging home put your senior resident name here: Dr. Hampton The patient presented with initial deficits presented as stroke alert for acute onset slurred speech and left facial droop, NIHSS 2. Thrombolytics withheld due to recent warfarin use; thrombectomy not indicated. Labs: INR 2.5, glucose 173, unremarkable CBC/CMP. giving an admission NIHSS of 2. Imaging studies showed: CTH- no acute intracranial abnormality. CTA head/neck revealed possible chronic left vertebral artery dissection, severe left and moderate right ICA stenosis, no large vessel occlusion.. [facility] - Incompatible pacemaker. Echocardiogram showed LVEF 44% without visible LV thrombus. Repeat CT head on 11/22 revealed a new right temporal lobe ischemic infarct with mild cerebral edemaand mass effect. Patient was diagnosed with Acute ischemic stroke in Right temporal lobe. IV Thrombolysis (TNK or TPA) was not administered due to contraindications warfarin use. Thrombectomy was not performed due fabricio ELVO. The mechanism for this event is believed to be cardioembolic. Patient was evaluated with speech and dysphagia team prior to oral intake. On 11/21, the patient continued home warfarin, but a dose was missed due to DHT clog. Repeat INR on 11/22 was subtherapeutic at 1.6. Warfarin was resumed, aspirin was discontinued, and atorvastatin wasinitiated for secondary stroke prevention. That night, the patient developed shortness of breath requiring non- rebreather and suctioning for mucus plug, with subsequent improvement. CXR showed moderate right and small left pleural effusions. Pulmonology was consulted; no thoracentesis was performedas effusions were stable and previously transudative. On 11/24, the patient developed fever (102.5??F), somnolence, leukocytosis (WBC 14.95), elevated procalcitonin, and hypotension. Pulmonology was reconsulted for possible infected effusion; CT chest with contrast and full infectious workup were recommended. CXR was unchanged; no thoracentesis was performed pending further evaluation. CT chest revealed moderate right and trace left pleural effusions with adjacent consolidation and new left lower lobe opacities. The patient was diagnosed with hospital-acquired pneumonia and started on vancomycin and Zosyn; IV bumetanide was given for diuresis. To continue Zosyn through 11/30/2024. On day of discharge, patient's NIHSS is 1. Please trend INR and adjust warfarin dosage accordingly. Neuropsychiatry evaluation was performed by the stroke team, with MOCA 10, and PHQ9 8 of points.. Referral for Neuropsychology evaluation at 180-days after thrombectomy was not applicable due to no thrombectomy performed. Patient's modified daniel score at time of discharge is 2: Slight disability; unable to carry out all previous activities, but able to look after own affairs without assistance. Patient was evaluated by PT/OT team and is felt to be discharged to Subacute rehab. Patient will be seen in Stroke clinic in 8-12 weeks . Follow up with PCP for management of all other comorbidities, including any vascular risk factors (blood pressure, lipids, blood sugar, tobacco use) that may apply. Stroke education on signs and symptoms, risk factors including HTN, tobacco use, 911, importance offollow up and medications is provided before discharge. The patient has been counseled on tobacco cessation: Not Applicable As per Endocrinology- - Post prandial hyperglycemia due to overcorrection with Insulin : Recommend reduction of pre meal insulin from resistant dose to standard dose ( changes made ) 2. Continue Lantus 5Units BID. 3. Check BG before bedtime and if <100, hold bedtime Lantus. - Watch for neuro glycopenic symptoms : Dizziness, Delirium, Weakness, Diaphoresis, Drowsiness, Fatigue, Seizures. - Aim for less stringent BG 140 -180 as she has multiple risk factors for hypoglycemia : Advanced age, prolong T1DM, Cardiovascular comorbidity. - Check fingerstick BG fasting and post prandial. - If hypoglycemia persists on boluses dose reduction for next 24 hours, will consider reducing Lantus. - Patient educated on hypoglycemia awareness symptoms. Surgeries and Procedures Medication List .. acetaminophen 500 MG tablet Commonly known as: Tylenol Take 2 tablets by mouth every 6 hours as needed. brimonidine 0.2 % ophthalmic solution Commonly known as: AlphaGAN P Administer 1 drop into both eyes nightly. calcium-vitamin D 500-200 MG-UNIT tablet Take 1 tablet by mouth daily. cetirizine 10 MG tablet Commonly known as: ZyrTEC Take 1 tablet by mouth nightly. * DULoxetine [address] capsule Commonly known as: Cymbalta Take 1 capsule by mouth every morning. * DULoxetine [address] capsule Commonly known as: Cymbalta Take 1 capsule by mouth every morning. ezetimibe 10 MG tablet Commonly known as: Zetia Take 1 tablet by mouth daily. furosemide 80 MG tablet Commonly known as: Lasix Take 1 tablet by mouth daily. gabapentin 300 MG capsule Commonly known as: Neurontin Take 2 capsules by mouth 2 times a day. Glucagon Emergency 1 MG kit 1 mg as needed. HumaLOG KWIKPEN 100 UNIT/ML injection pen Generic drug: insulin lispro Inject 3 Units under the skin 3 times a day with meals. hydroxychloroquine 200 MG tablet Commonly known as: Plaquenil Take 1 tablet by mouth nightly. Keto-Diastix strip 1 strip by In Vitro route daily. latanoprost 0.005 % ophthalmic solution Commonly known as: Xalatan Administer 1 drop into both eyes nightly. levothyroxine 125 MCG tablet Commonly known as: Synthroid, Levoxyl Take 1 tablet by mouth daily with breakfast. mycophenolate 500 MG tablet Commonly known as: Cellcept Take 2 tablets by mouth 2 times a day. nitroglycerin 0.4 MG SL tablet Commonly known as: Nitrostat Place 1 tablet under the tongue every 5 minutes as needed. Pitavastatin Calcium 4 MG tablet Take 1 tablet by mouth daily. sodium chloride 0.9% solution 100 mL with piperacillin-tazobactam 4.5 (4-0.5) g reconstituted solution 4.5 g Infuse 4.5 g into a venous catheter every 6 hours at 33.3 mL/hr over 3 hours for 1 day. Toujeo SoloStar 300 UNIT/ML injection pen (1 UNIT DIAL) Generic drug: insulin glargine Inject 6 Units under the skin 2 times a day. Trelegy Ellipta 200-62.5-25 MCG/ACT aerosol powder Generic drug: Qdyebedxbum-Arefmounf-Tdptne Take 1 puff by mouth daily. warfarin (Coumadin) intermittent dosing Take as directed per After Visit Summary. * This list has 2 medication(s) that are the same as other medications prescribed for you. Read thedirections carefully, and ask your doctor or other care provider to review them with you. Where to Get Your Medications Information about where to get these medications is not yet available Ask your nurse or doctor about these medications sodium chloride 0.9% solution 100 mL with piperacillin-tazobactam 4.5 (4-0.5) g reconstituted solution 4.5 g warfarin (Coumadin) intermittent dosing Discharge Diagnosis Medical Problems Active and Resolved Hospital Problems Hospital * (Principal) Cerebrovascular accident (CVA) (CMS/HCC) Severe protein-calorie malnutrition (CMS/HCC) Post Discharge Instructions Outpatient Follow-Up No future appointments. Test Results Pending At Discharge Pending Labs Order Current Status Blood Culture (Aerobic/Anaerobet Set) Preliminary result Pertinent Physical Exam At Time of Discharge Physical exam Constitutional: in no acute distress HENT: normocephalic, non-erythematous oropharynx, oral ulcers present, anicteric sclera Cardiovascular: no appreciable murmurs, gallops, or rubs Respiratory: symmetric chest expansion, lungs clear to auscultation Abdominal: Soft, non tender, non distended. Psychiatric: appropriate mood and affect, cooperative Neurological: Mental Status: The patient is alert and interactive, able to follow commands. Oriented to person, place, and time, Speech: Intact Articulation, Fluent language CN: II - PERRLA III, IV, - EOMI V - Facial sensation intact VII - Brow raise and smile symmetrical VIII - Auditory acuity intact IX, X - Palate elevation symmetric, uvula midline XI - SCM and Trapezius strength intact XII - Tongue protrudes midline Motor: Normal bulk and tone RUE: 4/5 strength LUE: 4/5 strength RLE: 4/5 strength LLE: 4/5 strength Gait: Deferred Discharge Disposition/Condition Disposition: [facility] Condition: Stable (s/sx potential problems absent or manageable) I spent >30 minutes of patient care and instruction time in preparation for this discharge. Cosigned by Isael Sage MD at 11/29/2024 6:11 PM EDT Associated attestation - Isael Sage MD - 11/29/2024 6:11 PM EDT I saw and evaluated the patient with the resident/fellow. I discussed the case with the resident/fellow and agree with the findings and plan as documented. * Hospital Course - Dipika Wynn MBBS - 11/29/2024 1:56 PM EDT For patients discharging home put your senior resident name here: Dr. Hampton The patient presented with initial deficits presented as stroke alert for acute onset slurred speech and left facial droop, NIHSS 2. Thrombolytics withheld due to recent warfarin use; thrombectomy not indicated. Labs: INR 2.5, glucose 173, unremarkable CBC/CMP. giving an admission NIHSS of 2. Imaging studies showed: CTH- no acute intracranial abnormality. CTA head/neck revealed possible chronic left vertebral artery dissection, severe left and moderate right ICA stenosis, no large vessel occlusion.. MRH - Incompatible pacemaker. Echocardiogram showed LVEF 44% without visible LV thrombus. Repeat CT head on 11/22 revealed a new right temporal lobe ischemic infarct with mild cerebral edemaand mass effect. Patient was diagnosed with Acute ischemic stroke in Right temporal lobe. IV Thrombolysis (TNK or TPA) was not administered due to contraindications warfarin use. Thrombectomy was not performed due fabricio ELVO. The mechanism for this event is believed to be cardioembolic. Patient was evaluated with speech and dysphagia team prior to oral intake. On 11/21, the patient continued home warfarin, but a dose was missed due to DHT clog. Repeat INR on 11/22 was subtherapeutic at 1.6. Warfarin was resumed, aspirin was discontinued, and atorvastatin wasinitiated for secondary stroke prevention. That night, the patient developed shortness of breath requiring non- rebreather and suctioning for mucus plug, with subsequent improvement. CXR showed moderate right and small left pleural effusions. Pulmonology was consulted; no thoracentesis was performedas effusions were stable and previously transudative. On 11/24, the patient developed fever (102.5??F), somnolence, leukocytosis (WBC 14.95), elevated procalcitonin, and hypotension. Pulmonology was reconsulted for possible infected effusion; CT chest with contrast and full infectious workup were recommended. CXR was unchanged; no thoracentesis was performed pending further evaluation. CT chest revealed moderate right and trace left pleural effusions with adjacent consolidation and new left lower lobe opacities. The patient was diagnosed with hospital-acquired pneumonia and started on vancomycin and Zosyn; IV bumetanide was given for diuresis. To continue Zosyn through 11/30/2024. On day of discharge, patient's NIHSS is 1. Please trend INR daily and adjust warfarin dosage accordingly. Was on 4mg/ day during hospital stay Neuropsychiatry evaluation was performed by the stroke team, with MOCA 10, and PHQ9 8 of points.. Referral for Neuropsychology evaluation at 180-days after thrombectomy was not applicable due to no thrombectomy performed. Patient's modified daniel score at time of discharge is 2: Slight disability; unable to carry out all previous activities, but able to look after own affairs without assistance. Patient was evaluated by PT/OT team and is felt to be discharged to Subacute rehab. Patient will be seen in Stroke clinic in 8-12 weeks . Follow up with PCP for management of all other comorbidities, including any vascular risk factors (blood pressure, lipids, blood sugar, tobacco use) that may apply. Stroke education on signs and symptoms, risk factors including HTN, tobacco use, 911, importance offollow up and medications is provided before discharge. The patient has been counseled on tobacco cessation: Not Applicable * Progress Notes - Patrciia Lee RN - 11/29/2024 12:10 PM EDT Case Management Discharge Note Michelle Felipe 74 y.o. 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: Primary Caregiver: Self Assistance Available at Discharge: Availability of Care Givers (#Hours): 24 hours Family/Flame Cutting Machine Operator Helper(s) Willingness Assessed to care for patient at home: Yes Family/Flame Cutting Machine Operator Helper(s) Readiness Assessed to care for patient at home: Yes Housing Circumstances-Z Codes: Housing Circumstances (select all that apply): None Applicable Patient Referred to Financial or Community Resources: Financial Resources: (none) Discharge Facility/Level of Care Needs: Discharge Facility/Level of Care Needs: 3-Shelter Facility Patient's Choice of Community Agency(s): Patient's Choice of Community Agency(s): [facility] for subacute rehab Patient/Family Anticipated Services at Transition: Patient/Family Anticipated Services at Transition: employment evaluator/case manager, fpc, rehabilitation services Current DME: Equipment Currently Used at Home: wheelchair, manual, walker, rolling, shower chair, oxygen (reports she utilizes O2 @ 2L n/c continuous) Current DME Provider: Alvaro Weiner DME/Equipment Needed after Discharge: Equipment Currently Used at Home: wheelchair, manual, walker, rolling, shower chair, oxygen (reports she utilizes O2 @ 2L n/c continuous) Equipment Needed After Discharge: none Readmission Within the Last 30 Days: Readmission Within the Last 30 Days: no previous admission in last 30 days Medicare Documentation: Medicare Second Notice?: Yes Date Second Notice Completed: 11/29/24 Time Second Notice Completed: 1200 Medicare Second Notice Recieved By: patient Follow-up: [place] [id number] Follow up for subacute rehab Discharge Transportation: Transportation Anticipated: family or friend will provide Transportation Home at Discharge: Family/Friend will Provide Has discharge transport been arranged?: Yes What day is the transport expected?: 11/29/24 Follow Up Transport: per facility or family Additional Comments: Per provider team pt is medically ready. Rec'd notification from [facility] that insurance approved and pt can admit today. Family/ to provide transport at and to bring portable O2 tank. RN to call report to [phone]. [facility] [employer] [email or web address]. No further CM needs identified. Will remain available to assist if needed throughout dc process. Patricia Lee RN billing auditor JESSI/Stroke * Nursing Note - Chai Merrill - 11/29/2024 10:39 AM EDT Stroke Team Interdisciplinary Transition of Care Huddle (STIMAIDA) Patient: Michelle Ag Care Team: Patient Care Team: Pcp, No as PCP - General (Family Medicine) Staff Present: Marksmanship Instructor, Medical Appliance Maker, Pharmacy, Speech Therapy, Physical/Occupational Therapy, Neurology Resident, Neuroscience Nurse Navigator, Senior Living Sales Counselor, and Stroke Sales Administrator Level of Care: Progressive Status: stable Will start precert today ([facility]) Chai Merrill 11/29/24 10:39 AM * Progress Notes - Shannen Pedroza - 11/29/2024 10:33 AM EDT OCCUPATIONAL THERAPY TREATMENT PATIENT DATA Patient Name Michelle Felipe Session Date 11/29/2024 OT Discharge Recommendations Subacute rehab Equipment Recommendations Defer to facility Discharge Transportation Recommendations Car MOBILITY GUIDELINES Activity: Stroke Stroke Guidelines: General - No Restrictions. NOT receving tPA Extremity Precautions: No Extremity Precautions Other mobility precautions: No other precautions required PRECAUTIONS Medical Precautions Yes Medical Precautions: Fall precautions Medical Precautions: SBP less than 180 HOME LIVING/SET-UP Lives With Spouse Home Type House Home Equipment Rolling walker, shower chair, Wheelchair-manual, Bedside commode (O2) Home Layout One level, Stairs to enter with rails 2 (single HR) Bathroom Layout Built-in shower seat, Walk-in shower, Grab bars, Handheld shower head Tall Additional Comments PRIOR LEVEL OF FUNCTION Receives help from Level of Mobility Ambulatory- household only (about 40 feet) Mobility [place] Independent gait with device (rolling walker) History of Falls ADL Performance ADL Performance: Needs assistance (home health comes to house) Bathing: Needs device and assist (needs assist to wash hair, can wash upper body, needs assist to wash lower body, needsassist to wash bottom - shower chair) Upper Body Dressing: Independent Lower Body Dressing: Needs assist (needs assist to don socks and shoes, able to don own pants, performed sitting edge of bed) Grooming: Independent Toileting: Independent (with walker) Eating: Independent Home Management Skills:Needs assist (minimal cooking due to pain - has assist from caregiver) PRESENTATION Oxygen Supplemental oxygen Nasal cannula 3 L/min Telemetry Yes Lines and Tubes Female External Urinary Catheter 11/22/24 2335 (Active) Peripheral IV 11/27/24 Anterior;Distal;Left Forearm (Active) Pre-Session Supine, Head of bed elevated, Lines intact, Bed alarm Post-Session Sitting in chair, Chair alarm, RN notified, Call light in reach, Lines intact, SCDs applied Bracing (if applicable) SUBJECTIVE PARTICIPANTS IN CARE Patient/Caregiver Comments Pt. Stated that she feels stiffer from not being out of bed this weekend. Pt. Educated to ask to be gotten out of bed daily. Visitors Present No Program Professional (if applicable) OBJECTIVE PAIN Pt. With no complaints of pain during treatment session. DELIRIUM SCREENING RASS: Alert and calm Confusion Assessment Method-ICU (CAM-ICU/PCAM-ICU) Feature 3: Altered Level of Consciousness: Negative COGNITION SCREENING Overall Cognitive Status Impaired Arousal/Alertness Appropriate responses to stimuli Mood/Behavior Alert, Confused Orientation Oriented X4 Command Following Single Step Commands: 100% of the time, With increased time, With repetition Multi-Step Commands: 100% of the time, With repetition, With increased time Method of Communication Verbal Additional Observations Safety Judgment: Decreased awareness of need for assistance Awareness of Errors: Assistance required to correct errors made, Assistance required to identify errors made Deficit Awareness: Decreased awareness of deficits Attention Span: Attends with cues to redirect INTERVENTIONS SELF-CARE Treatment Minutes (if applicable) 40 Comments Level of [place] Adaptive Equipment Utilized Interventions Feeding Grooming While standing at the sink pt. was max A for standing balance and pt. was able to wash hands with verbal cues. Pt. decreased awareness of poor standing balance impacting independence with verbal cues. with verbal cues pt. was able to correct standing balance momentarily. Bathing Upper Body Dressing Lower Body Dressing While seated edge of bed pt. donned bilateral socks with mod A with increased time. Pt. with difficulty crossing right over left and left over right for figure four position and required assistance to perform. Donning sock over the end of toes pt. required hand over hand on the right UE to reach for the socks. While seated on the toilet pt. doffed brief dep A and donned new breif as underwear with verbal cues to don left LE first into brief pt. was able to perform with max A and max A to standfrom toilet and max A to pull brief up over hip with verbal cues and use of right UE. Pt. with accident while performing functional mobility to the sink and required to be changed once again at the to ilet. Toileting Pt. performed functional mobility to the bathroom with max A x 1 + 1. Pt. was dep A for buttocks pericare while in standing wtih max A for standing balance. Pt. was able to clean periarea in the front with setup A using right UE with min verbal cues to intiiate task however max A for sitting balance with posterior and left lean impacting safety with standing balance. Pt. was able to complete through cleaning of periarea. Pt. performed this functional task x 2 secondary to two incontient episodes of bowel. IADLs Health Management Community Re-Entry BALANCE Postural Appearance Posture: Within Functional Limits INTERVENTIONS Level of [place] Balance Support Interventions Static Sit Standby assist Feet supported Dynamic Sit Minimum assistance (to CGA 2/2 L LOB with L weight shift and reaching BUE to inferior/right) Feet supported Dynamic Sitting-Balance: Reaching for objects, Anterior/Posterior weight shifts, Lateral weight shifts Static Stand Moderate assistance Left upper extremity support, Right upper extremity support Dynamic Stand Moderate assistance Right upper extremity support, Left upper extremity support Anterior/Posterior weight shifts, Lateral weight shifts BED MOBILITY Level of [place] Physical/Non-physical Assist Adaptive Equipment Utilized Rolling/ Turning Scooting/ Bridging Minimum assist (75% patient's effort) Supine to Sit Moderate assist (50% patient's effort) (to L EOB) Nonverbal cues (demo/gestures), Verbal Cues, Minimal cues, Additional assist utilized for safety Bed rails Sit to Supine Comments TRANSFERS Sit to Stand Moderate assist (50% patient's effort) Set-up required, Verbal Cues, Nonverbal cues (demo/gestures) Stand to sit Moderate assist (50% patient's effort) Additional assist utilized for safety, Verbal Cues, Nonverbal cues (demo/gestures), Minimal cues Hand held assist Bed to Chair (forward steps x5') Toilet Transfer Maximum assist (25% patient's effort) To toilet (x2 trialas) Set-up required, Verbal Cues, Nonverbal cues (demo/gestures) Hand held assist, Grab bar Shower Transfer Comments ASSESSMENT Pt. Has demonstrated decreased independence with functional transfers and bed mobility this treatment session. Pt. With increased independence with pericare in standing at the toilet however standingbalance has decreased since last treatment session. Pt. Continues with left UE and LE weakness as well as right this treatment session impacting independence with functional transfers and ADL's. Pt. At high risk for falls secondary to posterior and lateral lean. Pt is unable to access a bathroom, enter or exit the home, or manage medications safely, placing them at high risk for readmission. Pt requires assistance with all aspects of transfers, mobility, and self-care. Additionally, pt is at high risk for falls and is currently unable to care for self independently. OT recommends subacute rehab when pt is medically ready for discharge. Subacute rehabilitation will provide pt with the appropriate amount of rehab intensity to maximize her safety and independence, functional mobility and occupations that they value. Pt presents that they will tolerate 1-2-hours of therapy per day and will benefit from a multi-disciplinary approach. Pt would benefit from further OT services while in hospital setting to aid with aforementioned areas of need and discharge transition. OT RECOMMENDATIONS Discharge Destination Subacute rehab Discharge Equipment Defer to facility PLAN Continue working on grooming standing at the sink and seated ADL's. OT GOALS OT GOAL DETAILS Goal Established Date Time Frame Goal Status OT Goal 1: Pt. will perform UE dressing with min A sitting edge of bed. 11/22/24 2 weeks OT Goal 2: Pt. will perform toilet transfers with min A. 11/22/24 2 weeks OT Goal 3: Pt. will perform grooming sitting edge of bed with SBA. 11/22/24 2 weeks Written by Shannen Pedroza on 11/29/24 at 10:33 AM. * Care Plan - Nikky Tidwell RN - 11/29/2024 10:16 AM EDT Problem: Adult Inpatient Plan of Care Goal: Plan of Care Review Outcome: Ongoing, Progressing Flowsheets (Taken 11/29/2024 1013) Plan of Care Reviewed With: patient Goal: Patient-Specific Goal (Individualized) Outcome: Ongoing, Progressing Flowsheets Taken 11/29/2024 0800 by Nikky Tidwell RN Individualized Care Needs: safety Anxieties, Fears or Concerns: none Taken 11/28/20241999 by Lavern Coronado Patient/Family-Specific Goals (Include Timeframe): pt will remain free from injury throughout shift Goal: Absence of Hospital-Acquired Illness or Injury Outcome: Ongoing, Progressing Goal: Optimal Comfort and Wellbeing Outcome: Ongoing, Progressing Problem: Fall Injury Risk Goal: Absence of Fall and Fall-Related Injury Outcome: Ongoing, Progressing Intervention: Promote Injury-Free Environment Flowsheets (Taken 11/29/2024 1013) Safety Promotion/Fall Prevention: activity supervised nonskid shoes/slippers when out of bed safety round/check completed toileting scheduled fall prevention program maintained Problem: Stroke, Ischemic (Includes Transient Ischemic Attack) Goal: Optimal Coping Outcome: Ongoing, Progressing Intervention: Support Psychosocial Response to Stroke Flowsheets (Taken 11/29/2024 101) Supportive Measures: active listening utilized decision-making supported positive reinforcement provided Goal: Effective Bowel Elimination Outcome: Ongoing, Progressing Goal: Optimal Cerebral Tissue Perfusion Outcome: Ongoing, Progressing Goal: Optimal Cognitive Function Outcome: Ongoing, Progressing Goal: Improved Communication Skills Outcome: Ongoing, Progressing Goal: Optimal Functional Ability Outcome: Ongoing, Progressing Goal: Optimal Nutrition Intake Outcome: Met Goal: Effective Oxygenation and Ventilation Outcome: Ongoing, Progressing Goal: Improved Sensorimotor Function Outcome: Met Goal: Safe and Effective Swallow Outcome: Ongoing, Progressing Goal: Effective Urinary Elimination Outcome: Met Problem: Mobility Impairment Goal: Optimal Mobility Outcome: Ongoing, Progressing Intervention: Optimize Mobility Flowsheets (Taken 11/29/2024 1013) Activity Management: ambulated to bathroom up in chair Problem: Swallowing Impairment Goal: Optimal Eating and Swallowing Outcome: Ongoing, Progressing Intervention: Optimize Eating and Swallowing Flowsheets (Taken 11/29/2024 101) Aspiration Precautions: awake/alert before oral intake respiratory status monitored food consistency adjusted Problem: Functional Deficit Goal: Improved Balance and Postural Control Outcome: Ongoing, Progressing Intervention: Optimize Balance and Safe Activity Flowsheets (Taken 11/29/2024 1013) Activity Management: ambulated to bathroom up in chair Adaptive Equipment Use: raised toilet Safety Promotion/Fall Prevention: activity supervised nonskid shoes/slippers when out of bed safety round/check completed toileting scheduled fall prevention program maintained Self-Care Promotion: independence encouraged BADL personal objects within reach meal set-up provided Goal: Optimal Cognitive Function Outcome: Ongoing, Progressing Intervention: Optimize Cognitive Function Flowsheets (Taken 11/29/2024 101) Sensory Stimulation Regulation: care clustered quiet environment promoted Environment Familiarity/Consistency: daily routine followed Self-Care Promotion: independence encouraged BADL personal objects within reach meal set-up provided Goal: Compensation for Sensory Deficit Outcome: Ongoing, Progressing Problem: Self-Care Deficit Goal: Improved Ability to Complete Activities of Daily Living Outcome: Ongoing, Progressing Intervention: Promote Activity and Functional [place] Flowsheets (Taken 11/29/2024 1013) Activity Assistance Provided: assistance, 2 people education provided Adaptive Equipment Use: raised toilet Self-Care Promotion: independence encouraged BADL personal objects within reach meal set-up provided Problem: Skin Injury Risk Increased Goal: Skin Health and Integrity Outcome: Ongoing, Progressing Intervention: Optimize Skin Protection Flowsheets (Taken 11/29/2024 1016) Activity Management: ambulated to bathroom up in chair Pressure Reduction Techniques: heels elevated off bed Pressure Reduction Devices: pressure-redistributing mattress utilized * Progress Notes - Carlo Solano - 11/29/2024 9:21 AM EDT Physical Therapy Treatment Patient Name: Michelle Felipe Today's Date: 11/29/2024 PT Discharge Recommendations: Subacute rehab Equipment Recommended: Defer to facility SUBJECTIVE Pt denies getting out of bed to chair over the weekend. Pt reports her stomach is bothering her andthat she thinks she has had a bowel movement. Participants in Care Family/Caregiver Present: No PRESENTATION Oxygen Supplemental oxygen 3 L/min Lines and Tubes Female External Urinary Catheter 11/22/24 2335 (Active) Peripheral IV 11/27/24 Anterior;Distal;Left Forearm (Active) Pre-Session Supine, Head of bed elevated, Lines intact, Bed alarm Post-Session Sitting in chair, Chair alarm, RN notified, Call light in reach, Lines intact, SCDs applied Precautions Medical Precautions: Fall precautions Medical Precautions: SBP less than 180 OBJECTIVE Blood Pressure 131/67 (86) mmHg seated in chair post session Pain Pt with abdominal discomfort. RN notified. No numerical value provided. Pt positioned for comfort. Delirium Screening RASS: Alert and calm Confusion Assessment Method-ICU (CAM-ICU/PCAM-ICU) Feature 3: Altered Level of Consciousness: Negative INTERVENTIONS THERAPEUTIC ACTIVITY Treatment Minutes 30 Interventions Therapist facilitated bed mobility training, transfer training, and balance training to improve upright activity tolerance, endurance, strength, and functional mobility. Refer to specific sections for further detail on specific interventions performed. BED MOBILITY Interventions Verbal/tactile cues and increased time to initiate, facilitate, and sequence to R EOB. Level of [place] Physical/Non- physical Assist Adaptive Equipment Utilized Rolling/ Turning Scooting/ Bridging Minimum assist (75% patient's effort) Supine to Sit Moderate assist (50% patient's effort) (to L EOB) Nonverbal cues (demo/gestures), Verbal Cues, Minimal cues, Additional assist utilized for safety Bed rails Sit to Supine TRANSFERS Interventions Pt completed 1x from EOB and 2x to/from commode. PT provided UE support for balance/safety and tactile cue to pelvis to facilitate anterior weight shift over JORDIN in prep for stand, hip extension to stand, and eccentric control to sit. Level of [place] Physical/Non- physical Assist Adaptive Equipment Utilized Sit to Stand Moderate assist (50% patient's effort) Set-up required, Verbal Cues, Nonverbal cues (demo/gestures) Stand to sit Moderate assist (50% patient's effort) Additional assist utilized for safety, Verbal Cues, Nonverbal cues (demo/gestures), Minimal cues Hand held assist Bed to Chair Toilet Transfer Maximum assist (25% patient's effort) To toilet (x2 trialas) Set-up required, Verbal Cues, Nonverbal cues (demo/gestures) Hand held assist, Grab bar Shower Transfer BALANCE Postural Appearance Posture: Within Functional Limits sitting and L lean in standing. Pt sat edge of bed, commode, and stood at sink in attempt to increase trunk strength, tolerance to upright activity, and sitting/standing balance for participation in upright activities. PT provided verbal/tactile cues for upright/midline posture and stance width while standing. Level of [place] Balance Support Interventions Static Sit Standby assist Feet supported Dynamic Sit Minimum assistance (to CGA 2/2 L LOB with L weight shift and reaching BUE to inferior/right) Feet supported Dynamic Sitting-Balance: Reaching for objects, Anterior/Posterior weight shifts, Lateral weight shifts Static Stand Moderate assistance Left upper extremity support, Right upper extremity support Dynamic Stand Moderate assistance Right upper extremity support, Left upper extremity support Anterior/Posterior weight shifts, Lateral weight shifts GAIT TRAINING Treatment Minutes 10 Interventions Gait Training Interventions: PT provided BUE HEAD WOOD GRINDER for balance/safety. PT provided mod tactile cue to pelvis to facilitate improved linda lateral weight shift and forward step progression. Verbal cue for increased step/stride length and L step width, along with upright posture. Level of [place] Distance Adaptive Equipment Utilized Gait Maximum assistance 15'x2 trials Hand held assist Gait Analysis R lean, decreased L step width, flexed knees/hips, decreased step/stride length, visual gaze to floor, step to gait pattern. ASSESSMENT Pt tolerated session without adverse effects. Pt with report of slight dizziness post activity and BP was WFL. Pt with noted continuous stools today, RN notified. Pt requires overall increased physical assistance with bed mobility, transfers, gait, and balance. Pt continues to require PT assist formobility 2/2 fall risk and the following impairments: strength, balance, activity tolerance, endurance, balance, postural control. Pt will continue to benefit from skilled physical therapy to reduce fall risk, reduce burden of care, and to optimize post stroke IND with mobility and ADLs. PT Recommendations Discharge Destination: Subacute rehab Discharge Equipment: Defer to facility PLAN Continue with established PT plan of care 2 - 5 times per week to progress towards PT goals. PT GOALS PT GOAL DETAILS Goal Established Date Time Frame Goal Status PT Goal 1: Patient will perform supine to and from sit with CGA. 11/22/24 2 weeks PT Goal 2: Patient will perform sit to and from stand with RW or AAD with CGA. 11/22/24 2 weeks PT Goal 3: Patient will walk 40 feet with RW on level surfaces with CGA. 11/22/24 2 weeks PT Goal 4: Patient and family will participate in discharge planning to include family teaching, referrals, equipment ordering and HEP. 11/22/24 2 weeks Written by Carlo Solano on 11/29/24 at 9:57 AM. * Progress Notes - Vikram England PharmD - 11/29/2024 8:56 AM EDT Antithrombosis Monitoring: Warfarin Michelle Felipe is a 74 y.o. female who has been continued on warfarin for LV thrombus. Warfarin Indication & Goal Anticoagulation Indication/Goal Warfarin Indication: Left Ventricular Thrombus;Atrial fibrillation Reason DOAC not prescribed: Failure on Alternate Therapy Duration of Anticoagulation: Indefinite Target INR: 2-3 Warfarin Prior to Admission: Yes Prior to Admission Daily Warfarin Regimen: Warfarin 5mg daily + 7.5mg on Friday Prior to Admission Weekly Warfarin Dose: 37.5mg Assessment Supra-therapeutic INR may be attributed to zosyn initiated 11/25 for hospital acquired pneumonia coverage. Zosyn can increase warfarin anticoagulation effects. Patient to end zosyn treatment after 11/30/24. throug Warfarin INR & Dose Trends Date INR Warfarin Dose (mg) Comments 11/20 2.5 11/21 5 mg (not given) DHT clogged, unable to give medication 11/22 1.6 5mg 11/23 1.8 4mg 11/24 2.1 4mg 11/25 2.3 4mg Zosyn q6h started 11/26 2.5 4mg 11/27 2.9 4mg Consider dose reduction if INR continues increasing 11/28 2.9 4mg 11/29 3.8 HOLD WARFARIN INTERMITTENT CONSULT ORDERED Plan Anticoagulation Plan Warfarin Pharmacist Managed?: Yes Warfarin Plan: Holding warfarin dose -Warfarin intermittent consult entered Specify Warfarin Dose: holding warfarin [facility] Warfarin Dosing Protocol Followed?: Yes Bridging Agent in Conjunction With Warfarin? : No INR Monitoring Frequency: Monitor INR daily Patient Education : Complete and documented Will continue to follow patient's clinical progress daily. Vikram England PharmD Available on secure chat 7:30a-4p 11/29/24 * Consults - Gila Licea APRN - 11/29/2024 8:36 AM EDTAssociated Order(s): Inpatient consult to Endocrinology Images from the original note were not included. Inpatient consult to Endocrinology Consult performed by: Gila Licea APRN Consult ordered by: Isael Sage MD Reason for consult: Inpatient glycemic management for T1DM with hypoglycemia Reason For Consult T1 Diabetes Management recommendations with hypoglycemia History Of Present Illness Michelle Felipe is a 74 y.o. female with medical history significant for T1DM, peripheral neuropathy,HFpEF, CVA, A fib on Eliquis, complete heart block s/p permanent pacemaker, CAD s/p CABG, chronic hypoxic respiratory failure 2/2 recurrent pleural effusions who presented with slurred speech and left facial droop, diagnosed with acute ischemic stroke. She is currently being managed in Neuro strokeward. Patient was on Basal + Bolus Insulin regimen at home. She developed frequent hypoglycemia with awareness at night time while on a carb control diet. Endocrinology consulted for management of hypoglycemia in IDDM. Patient was not dysarthric and was able to participate in interview. Patient acknowledges experiencing weakness and diaphoresis between 1-3am at night due to hypoglycemia. She reports and thinks this happens after her night time insulin dose. Mentions her appetite is fair, not much changed from what she had at home. She is currently undergoing medical management for CVA. Recalls her home Insulin regimen correctly. She endorses having hypoglycemia with high doses of boluses insulin with dinner at home as well. Diabetes history obtained from patient and records from [facility] -Type: 1 -Current provider managing as outpatient: Anne-Marie Kolb APRN -Current Home Regimen: Toujeo 6u twice a day Continue Lispro 6 units with BK and lunch and 0-2u with supper plus 1:50>150d plus 1:50>150 correction (if experiences hypoglycemia, start correction with glucose readings >200 -Medication Adherence: appears good. -Frequency of BG Monitoring: Uses CGM -Most recent A1c: 8.17 11/20 -Hypoglycemia Frequency: Avg 2-3 per week -Hypoglycemia Awareness: Yes, with weakness and diaphoresis -Number of past DKAs: None -Dietary History: 3 meals carb consistent Complications: Neuropathy-yes Retinopathy-none Nephropathy-none Gastroparesis-denies Hyperlipidemia- on statin and zetia -denies Hx of Pancreatitis -denies Hx of persistent UTI or abe infection -denies Hx of HF Medical/Surgical/Social/Family History No past medical history on file. Surgical History[1] Social History[2] Family History[3] Allergies Patient has no known allergies. Medications Current Medications[4] Review of Systems Review of Systems Constitutional: Negative for appetite change. Had experienced diaphoresis, weakness during hypoglycemic episode last night HENT: Negative for drooling, trouble swallowing and voice change. Respiratory: Negative for cough and shortness of breath. Cardiovascular: Negative for chest pain and leg swelling. Gastrointestinal: Negative for abdominal distention, diarrhea, nausea and vomiting. Endocrine: Negative for polydipsia and polyuria. Skin: Negative for pallor. Neurological: Negative for tremors and seizures. Vitals Temp: [36.6 ??C (97.9 ??F)-37.1 ??C (98.8 ??F)] 36.8 ??C (98.3 ??F) Heart Rate: [60-63] 60 Resp: [17-24] 20 BP: (127-149)/(52-65) 149/58 FiO2 (%): [32 %] 32 % Physical Exam GEN:Sitting up in recliner comfortably, well appearing EYES: sclera anicteric PULM: No increased work of breathing, completing full sentences, symmetric chest rise CV: Normal rate, regular rhythm ABD: soft, non-tender, non-distended abdomen EXT: Warm well perfused NEURO: A&Ox4. No dysarthria. SKIN: No obvious hyperpigmentation in posterior neck region PSYCH: normal mood and affect Assessment : #Level 2 Hypoglycemia ( BG < 54 ) with Insulin #Type 1 Diabetes Mellitus - Hypoglycemia with awareness associated with Insulin administration - Lowest BG 53 and subjective awareness freqnet between 1-3am. Also sharp drop with premeal short acting Insulin - Current regimen for T1DM : Glargine 5U BID Lispro resistant dose 0-10U before meals Correct one dose nightly - Home Insulin regimen : Toujeo 6U BID, Lispro 6U lunch/breakfast 0-2U dinner. [Today she reports taking 3u with breakfast and lunch and 2u with dinner] - Most recent HbA1c 8.17 11/20 - No seizures, coma, delirium reported. - Diet : Carb consistent and completes major portions of meal 75-100% Plan : - Post prandial hyperglycemia due to overcorrection with Insulin : Recommend reduction of pre meal insulin from resistant dose to standard dose ( changes made ) 2. Continue Lantus 5Units BID. 3. Check BG before bedtime and if <100, hold bedtime Lantus. - Watch for neuro glycopenic symptoms : Dizziness, Delirium, Weakness, Diaphoresis, Drowsiness, Fatigue, Seizures. - Aim for less stringent BG 140 -180 as she has multiple risk factors for hypoglycemia : Advanced age, prolong T1DM, Cardiovascular comorbidity. - Check fingerstick BG fasting and post prandial. - If hypoglycemia persists on boluses dose reduction for next 24 hours, will consider reducing Lantus. - Patient educated on hypoglycemia awareness symptoms. Please call us if there is a change in patient's diet or NPO requirement or addition of steroids asthis changes the diabetes management. -patient seen with endocrine fellow. Recommend to reduce lispro to 3u with breakfast and lunch and 2u with dinner, continue standard correction scale AC, Agree with rest of above assessment and plan * Please contact Gila Licea NP via secure chat or page us at [phone] during 7a-7p, Sun-Sat. For after hours, weekends, holidays please contact the on-call Endocrine Fellow. Thank you for allowing us to participate in the care of this patient. [1] No past surgical history on file. [2] [3] No family history on file. [4] Current Facility-Administered Medications Medication Dose Route Frequency Provider Last Rate Last Admin acetaminophen (Tylenol) tablet 1,000 mg 1,000 mg Oral q6h PRN Yakelin Pa MBBS 1,000 mg at 11/24/24 1539 albuterol (Proventil) (2.5 MG/3ML) 0.083% nebulizer solution 2.5 mg 2.5 mg Nebulization q6h PRN Marisabel Subramanian MD 2.5 mg at 11/28/24 2323 atorvastatin (Lipitor) tablet 40 mg 40 mg Oral Nightly Cirilo Majano MD 40 mg at 11/28/242103 brimonidine (AlphaGAN P) 0.2 % ophthalmic solution 1 drop 1 drop Both Eyes Nightly Babs Alvarez MD 1 drop at 11/28/242115 calcium-vitamin D 500-200 MG-UNIT per tablet 1 tablet 1 tablet Oral Daily Cirilo Majano MD 1 tablet at 11/29/24 0800 cetirizine (ZyrTEC) tablet 10 mg 10 mg Oral Nightly Cirilo Majano MD 10 mg at 11/28/242103 glucose (Glutose) 40 % oral gel 15-30 grams of glucose 15-30 grams of glucose Sublingual q15 min PRN Ruben Caal MBBS 15 grams of glucose at 11/26/242135 Or dextrose 10 % (D10W) bolus 125 mL 125 mL Intravenous q15 min PRN Ruben Caal MBBS 500 mL/hr at 09/19/25 2204 125 mL at 11/26/24 2204 Or dextrose 10 % (D10W) bolus 250 mL 250 mL Intravenous q15 min PRN Ruben Caal MBBS 1,000 mL/hr at11/28/24 0630 250 mL at 11/28/24 0630 Or glucagon (human recombinant) injection 1 mg 1 mg Intramuscular q15 min PRN Ruben Caal MBBS DULoxetine (Cymbalta) DR capsule 80 mg 80 mg Oral Daily Cirilo Majano MD 80 mg at 11/29/24 0800 ezetimibe (Zetia) tablet 10 mg 10 mg Oral Daily Cirilo Majano MD 10 mg at 11/29/24 0800 furosemide (Lasix) tablet 80 mg 80 mg Oral Daily Domingo Spangler DO 80 mg at 11/29/24 0800 gabapentin (Neurontin) capsule 600 mg 600 mg Oral BID Cirilo Majano MD 600 mg at 11/29/24 0800 hydrALAZINE (Apresoline) injection 10 mg 10 mg Intravenous q1h PRN Ruben Caal MBBS Or hydrALAZINE (Apresoline) injection 20 mg 20 mg Intravenous q1h PRN Ruben Caal MBBS hydroxychloroquine (Plaquenil) tablet 200 mg 200 mg Oral Nightly Cirilo Majano MD 200 mg at 11/28/24 210 insulin glargine-yfgn 100 UNIT/ML injection 5 Units 5 Units Subcutaneous BID Yakelin Pa MBBS 5 Units at 11/28/24 0929 insulin lispro (Admelog) 100 units/mL injection - Correction - Resistant Dose 0- 10 Units Subcutaneous TID with meals Yakelin Pa MBBS 4 Units at 11/28/24 1203 insulin lispro (Admelog) injection - Correction - Nighttime Dose 0-3 Units Subcutaneous Twice at night Yakelin Pa MBBS 3 Units at 11/24/24 2213 Insulin Lispro (Admelog, HumaLOG) 100 UNIT/ML injection 5 Units 5 Units Subcutaneous TID with mealsLv Gallo MD 5 Units at 11/28/24 1203 labetalol (Normodyne,Trandate) injection 10 mg 10 mg Intravenous q1h PRN Ruben Caal MBBS Or labetalol (Normodyne,Trandate) injection 20 mg 20 mg Intravenous q1h PRN Ruben Caal MBBS latanoprost (Xalatan) 0.005 % ophthalmic solution 1 drop 1 drop Both Eyes Nightly Babs Alvarez MD 1 drop at 11/28/242115 levothyroxine (Synthroid, Levoxyl) tablet 125 mcg 125 mcg Oral Daily with breakfast Carlos Majano MD 125 mcg at 11/29/24 0801 metoprolol tartrate (Lopressor) tablet 25 mg 25 mg Oral BID Cirilo Majano MD 25 mg at mineral oil-hydrophilic petrolatum (Aquaphor) ointment 1 Application 1 Application Topical PRN Domingo Spangler DO Tiotropium [place] Monohydrate (Spiriva Respimat) 2.5 MCG/ACT inhaler 2 puff 2 puff Inhalation Daily Babs Alvarez MD 2 puff at 11/29/24 0801 And mometasone-formoterol (Dulera 100) 100-5 MCG/ACT inhaler 2 puff 2 puff Inhalation BID Babs Alvarez MD 2 puff at 11/29/24 0802 mycophenolate (Cellcept) capsule 1,000 mg 1,000 mg Oral BID Yakelin Pa MBBS 1,000 mg at 11/29/24 0801 nitroglycerin (Nitrostat) SL tablet 0.4 mg 0.4 mg Sublingual q5 min PRN Babs Alvarez MD piperacillin-tazobactam (Zosyn) 4.5 g in sodium chloride 0.9% 100 mL IVPB (vial adapter required) 4.5 g Intravenous q6h Domingo Spangler DO 36.7 mL/hr at 11/29/24 0619 4.5 g at 11/29/24 0619 potassium chloride CR (Klor-Con) ER tablet 40 mEq 40 mEq Oral Once Domingo Spangler DO senna-docusate (Karyn-Colace) 8.6-50 MG per tablet 1 tablet 1 tablet Oral BID Cirilo Majano MD 1 tablet at 11/29/24 0801 sodium chloride 0.9 % flush 10 mL 10 mL Intravenous PRN Ruben Caal MBBS warfarin (Coumadin) intermittent dosing 1 each 1 each Oral See admin instructions Dipika Wynn MBBS Cosigned by Jair Tan MD at 11/29/2024 5:24 PM EDT Associated attestation - Jair Tan MD - 11/29/2024 5:24 PM EDT The patient was seen only by Advanced Practice Provider ([email or web address]). * Progress Notes - Patricia Lee RN - 11/29/2024 8:09 AM EDT Case Management Adult Progress Note Michelle Felipe 74 y.o. female CSN: [id number] Admission: 11/20/2024 12:56 PM Primary Problem: Cerebrovascular accident (CVA) (CMS/HCC) Anticipated Discharge Date: 1-2 days Has Discharge Plans Changed? No Medicare Second Notice: no Additional Comments: Chart reviewed and poc was discussed in am huddle. Per provider pt is medically ready. Pt has been accepted by [facility] for subacute rehab. was unable to get in touch with facility on Friday. Will f/up with facility today to request precert. PT/OT to see for updated notes today. Will continue to follow. 10:20a - Attempted to speak with Odilia in admissions at facility - no answer, bruce left. 11:12a - Attempted again to contact Odilia on her cell - no answer, bruce left. Requested front office to submit pt for insurance precert. 11:40a - Rec'd call back from Odilia that she had already submitted precert and approval is back. Facility can admit pt today. Provider team and RN were updated via secure chat. Notified pt's daughter Ruthie via phone; awaiting call back on family's time availability to provide transport. 11:50a - Rec'd call back from Ruthie that her dad will be here around 2p to transport. Instructed them to bring her portable home O2 tank. Voiced understanding. RN and provider team updated via secure chat. Patricia Lee RN billing auditor JESSI/Stroke * Progress Notes - Flakito Ko, PharmD - 11/28/2024 12:25 PM EDT Antithrombosis Monitoring: Warfarin Michelle Felipe is a 74 y.o. female who has been continued on warfarin for LV thrombus. Warfarin Indication & Goal Anticoagulation Indication/Goal Warfarin Indication: Left Ventricular Thrombus;Atrial fibrillation Reason DOAC not prescribed: Failure on Alternate Therapy Duration of Anticoagulation: Indefinite Target INR: 2-3 Warfarin Prior to Admission: Yes Prior to Admission Daily Warfarin Regimen: Warfarin 5mg daily + 7.5mg on Friday Prior to Admission Weekly Warfarin Dose: 37.5mg Assessment Warfarin INR & Dose Trends Date INR Warfarin Dose (mg) Comments 11/20 2.5 11/21 5 mg (not given) DHT clogged, unable to give medication 11/22 1.6 5mg 11/23 1.8 4mg 11/24 2.1 4mg 11/25 2.3 4mg 11/26 2.5 4mg 11/27 2.9 4mg Consider dose reduction if INR continues increasing 11/28 2.9 4mg Plan Anticoagulation Plan Warfarin Pharmacist Managed?: Yes Warfarin Plan: Continue current dose Specify Warfarin Dose: warfarin 4mg [facility] Warfarin Dosing Protocol Followed?: Yes Bridging Agent in Conjunction With Warfarin? : No INR Monitoring Frequency: Monitor INR daily Patient Education : Complete and documented Will continue to follow patient's clinical progress daily. Flakito Ko PharmD PGY1 Acute Care Resident Available on secure chat * Care Plan - Joanna Be RN - 11/28/2024 9:49 AM EDT Problem: Adult Inpatient Plan of Care Goal: Absence of Hospital-Acquired Illness or Injury Intervention: Identify and Manage Fall Risk Flowsheets (Taken 11/28/2024946) Safety Promotion/Fall Prevention: activity supervised assistive device/personal items within reach clutter-free environment maintained Intervention: Prevent Skin Injury Flowsheets (Taken 11/28/2024946) Body Position: turned Intervention: Prevent and Manage VTE (Venous Thromboembolism) Risk Flowsheets (Taken 11/28/2024946) VTE Prevention/Management: bilateral SCDs (sequential compression devices) on Intervention: Prevent Infection Flowsheets (Taken 11/28/2024946) Infection Prevention: cohorting utilized Goal: Optimal Comfort and Wellbeing Intervention: Monitor Pain and Promote Comfort Flowsheets (Taken 11/28/2024946) Pain Management Interventions: medication (see MAR) Intervention: Provide Person-Centered Care Flowsheets (Taken 11/28/2024946) Trust Relationship/Rapport: care explained Problem: Fall Injury Risk Goal: Absence of Fall and Fall-Related Injury Intervention: Identify and Manage Contributors Flowsheets (Taken 11/28/2024946) Medication Review/Management: medications reviewed Intervention: Promote Injury-Free Environment Flowsheets (Taken 11/28/2024946) Safety Promotion/Fall Prevention: activity supervised assistive device/personal items within reach clutter-free environment maintained Problem: Stroke, Ischemic (Includes Transient Ischemic Attack) Goal: Optimal Coping Intervention: Support Psychosocial Response to Stroke Flowsheets (Taken 11/28/2024946) Supportive Measures: active listening utilized Family/Support System Care: caregiver stress acknowledged involvement promoted presence promoted Goal: Effective Bowel Elimination Intervention: Promote Effective Bowel Elimination Flowsheets (Taken 11/28/2024946) Bowel Elimination Management: relaxation techniques promoted sitting position facilitated Bowel Program: maintenance program followed Goal: Optimal Cerebral Tissue Perfusion Intervention: Protect and Optimize Cerebral Perfusion Flowsheets (Taken 11/28/2024946) Fluid/Electrolyte Management: fluids provided Sensory Stimulation Regulation: auditory stimulation minimized Cerebral Perfusion Promotion: blood pressure monitored Goal: Optimal Cognitive Function Intervention: Optimize Cognitive Function Flowsheets (Taken 11/28/2024946) Sensory Stimulation Regulation: auditory stimulation minimized Reorientation Measures: calendar in view clock in view Environment Familiarity/Consistency: daily routine followed Goal: Improved Communication Skills Intervention: Optimize Communication Skills Flowsheets (Taken 11/28/2024946) Communication Enhancement Strategies: call light answered in person Goal: Optimal Functional Ability Intervention: Optimize Functional Ability Flowsheets (Taken 11/28/2024946) Activity Management: activity adjusted per tolerance Goal: Optimal Nutrition Intake Intervention: Promote and Optimize Fluid and Food Intake Flowsheets (Taken 11/28/2024946) Oral Nutrition Promotion: adaptive equipment use encouraged Nutrition Interventions: other (see comments) diet advanced Goal: Effective Oxygenation and Ventilation Intervention: Optimize Oxygenation and Ventilation Flowsheets (Taken 11/28/2024946) Airway/Ventilation Management: airway patency maintained Head of Bed (HOB) Positioning: HOB elevated HOB at 60 degrees Goal: Improved Sensorimotor Function Intervention: Optimize Range of Motion, Motor Control and Function Flowsheets (Taken 11/28/2024946) Positioning: Shoulder: safety cues provided Positioning/Transfer Devices: wedge applied in use pillows Intervention: Optimize Sensory and Perceptual Ability Flowsheets (Taken 11/28/2024946) Pressure Reduction Devices: feet on footrest/footstool Goal: Safe and Effective Swallow Intervention: Optimize Eating and Swallowing Flowsheets (Taken 11/28/2024946) Aspiration Precautions: awake/alert before oral intake Goal: Effective Urinary Elimination Intervention: Promote Effective Bladder Elimination Flowsheets (Taken 11/28/2024946) Urinary Elimination Promotion: absorbent pad/diaper use encouraged Problem: Skin Injury Risk Increased Goal: Skin Health and Integrity Intervention: Optimize Skin Protection Flowsheets (Taken 11/28/2024946) Activity Management: activity adjusted per tolerance Pressure Reduction Devices: feet on footrest/footstool Head of Bed (HOB) Positioning: HOB elevated HOB at 60 degrees Intervention: Promote and Optimize Oral Intake Flowsheets (Taken 11/28/2024946) Oral Nutrition Promotion: adaptive equipment use encouraged Nutrition Interventions: other (see comments) diet advanced Problem: Mobility Impairment Goal: Optimal Mobility Intervention: Optimize Mobility Flowsheets Taken 11/28/2024946 by Joanna Be RN Activity Management: activity adjusted per tolerance Positioning/Transfer Devices: wedge applied in use pillows Taken 11/26/2024 1040 by Genny Landa RN Assistive Device Utilized: other (see comments) Problem: Swallowing Impairment Goal: Optimal Eating and Swallowing Intervention: Optimize Eating and Swallowing Flowsheets (Taken 11/28/2024946) Aspiration Precautions: awake/alert before oral intake Nutrition Interventions: other (see comments) diet advanced Problem: Functional Deficit Goal: Improved Balance and Postural Control Intervention: Optimize Balance and Safe Activity Flowsheets Taken 11/28/2024946 Activity Management: activity adjusted per tolerance Safety Promotion/Fall Prevention: activity supervised assistive device/personal items within reach clutter-free environment maintained Taken 11/27/2024940 Adaptive Equipment Use: raised toilet Goal: Optimal Cognitive Function Intervention: Optimize Cognitive Function Flowsheets (Taken 11/28/2024946) Sensory Stimulation Regulation: auditory stimulation minimized Environment Familiarity/Consistency: daily routine followed Goal: Compensation for Sensory Deficit Intervention: Optimize Sensory Function Flowsheets (Taken 11/27/2024940) Pressure Reduction Techniques: rest period provided between sit times Sensation Impairment Protection: cues provided for safety external pressure sources minimized Problem: Self-Care Deficit Goal: Improved Ability to Complete Activities of Daily Living Intervention: Promote Activity and Functional [place] Flowsheets Taken 11/28/2024946 Activity Assistance Provided: assistance, 2 people Taken 11/27/2024940 Adaptive Equipment Use: raised toilet * Progress Notes - Domingo Spangler DO - 11/28/2024 8:52 AM EDT Stroke [facility] Progress Note Subjective Overnight the patient had 2 episodes of hypoglycemia with BG dropping to 34 at 1am and 40 at 6am. Patient reported being asymptomatic with both events and quickly returned to hyperglycemic after eachincident. Patient seen and examined at bedside. Patient notes that she never felt any symptoms during her hyperglycemic episodes and family reports that she is often hyperglycemic but very rarely hypoglycemic,uses a dexcom at home. Patient notes that her nausea is much better this morning. Patient denies N/V/D or abdominal pain. Patient is still eating and drinking well. Objective Visit Vitals BP (!) 164/65 (BP Location: Left arm, Patient Position: Lying) Pulse 60 Temp 36.4 ??C (97.6 ??F) (Oral) SpO2 100% Physical exam Constitutional: in no acute distress HENT: normocephalic, non-erythematous oropharynx, oral ulcers present, anicteric sclera Cardiovascular: no appreciable murmurs, gallops, or rubs Respiratory: symmetric chest expansion, lungs clear to auscultation Abdominal: Soft, non tender, non distended. Psychiatric: appropriate mood and affect, cooperative Neurological: Mental Status: The patient is alert and interactive, able to follow commands. Oriented to person, place, and time, Speech: Intact Articulation, Fluent language CN: II - PERRLA III, IV, - EOMI V - Facial sensation intact VII - Brow raise and smile symmetrical VIII - Auditory acuity intact IX, X - Palate elevation symmetric, uvula midline XI - SCM and Trapezius strength intact XII - Tongue protrudes midline Motor: Normal bulk and tone RUE: 4/5 strength LUE: 4/5 strength RLE: 4/5 strength LLE: 4/5 strength Gait: Deferred Labs Personally reviewed labs, including a BMP which was notable for hyperglycemia INR 2.9 (H), PTT ??, Anti-Xa ?? BMP Na 139 Cl 97 BUN 13 Glu 53 (L) K 3.7 Co2 30 (H) Cr 0.77 Ca 8.6 (L) iCa ?? Imaging No new neuroimaging today. Assessment/Plan Michelle Felipe is a 74 year old woman with PMHx of resolved chronic LV thrombus, atrial fibrillationon warfarin, prior stroke with no residual deficit, diabetes, hypertension, hyperlipidemia, SLE, HFpEF, and chronic hypoxic respiratory failure 2/2 recurrent pleural effusions who presented with slurred speech and left facial droop. # Acute ischemic stroke in right temporal lobe # Cerebral edema with brain compression # Dysarthria and left facial droop # Impaired functional activities due to stroke (POA) # limitation of activities due to disability from stroke # History of Afib # History of LV thrombus - NIHSS 2 on admission - LKN: 11:45 a.m. on 11/20/2024 - Mechanism: Cardioembolic given history of atrial fibrilation - Risk factors: atrial fibrillation, diabetes mellitus, hyperlipidemia, hypertension, and history of chronic LV thrombus - CT Head demonstrated showed no acute intracranial abnormality. 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 - CTH repeat on 15 AM shows ischemic infarct in temporal lobe on right. - Thrombolytics not given due to history of anticoagulant use in the last 24 hours - Thrombectomy not performed due to no LVO - Echo: LVEF 44%, septal motion consistent with conduction abnormality; no visible left ventricularthrombus - EKG: ventricular paced rhythm Plan - BP goals: <160 - Na goals: Normal - Secondary stroke prophylaxis: Atorvastatin 40 mg, restarted warfarin and stopped aspririn - PT/OT- subacute rehab recs - [employer]: Diet recs with IDDSI 7 easy to chew (no mixed consistencies), IDDSI 3 moderately thick liquids via SINGLE cup/straw SIP, meds whole in puree/pudding. Repeat modified barium swallow in ~5-7 days. - Neuro checks and NIHSS per protocol - Continuous telemetry monitoring - mMoCA and PHQ-9 at discharge # Acute on chronic hypoxic respiratory failure 2/2 # Hospital acquired pneumonia and # Recurrent pleural effusion s/p R sided thoracentesis (09/11/24) - on home oxygen 2L - 11/25 Infectious workup significant for WBC elevated 11.82, procalcitonin elevated 1.53, respiratory culture with gram negative rods and gram positive cocci in pairs and chains. - CT chest w contrast significant for moderate right and trace left pleural effusion with consolidation collapse adjacent to the right pleural effusion and airspace opacity/consolidation in the left lower lobe - Cultures growing enterobacter cloacae Plan - Continue Zosyn 4.5g q6hrs per pulmonology recommendation. - No need to switch to tLov from warfarin as there are no plans for thoracentesis at this point. - Resumed home lasix 80mg. - Up to chair TID - Continue incentive spirometry Chronic medical conditions: Acute on chronic HFpEF - Continuing home oxygen 2L - Not significantly volume overloaded on exam although does have some pedal edema - Continuing home furosemide, metoprolol Nausea/abdominal pain- resolved -Patient is having regular bowel movements -Patient is eating well and drinking well -most recent EKG with QTC 520 Hypothyroidism - Continuing Levothyroxine 125 mcg DM - Restarted home doses of insulin since patient has been eating well with hyperglycemia -Patient has had hypoglycemia 2 nights in a row dropping into the 30's and 40's. These have been asymptomatic episodes that were quickly corrected. Patient with no previous hypoglycemia during admission. - Will monitor again tonight with regular glucose tests. May need to adjust nighttime basal insulin. - Continuing SSI and hypoglycemia monitoring SLE - Follows with [facility], on plaquenil and mycophenolate - Has c/o painful mouth sores and sores along her elbow and hand small joint along with possible dactylitis - Continuing home Hydroxychloroquine Chronic Neuropathic pain - Continuing home Gabapentin and Duloxetine Fluids: PO Diet: IDDSI 7 easy to chew (no mixed consistencies), IDDSI 3 moderately thick liquids(due to aspiration with thin liquids) via SINGLE cup/straw SIP, meds whole in puree/pudding. DVT ppx: pLOV Discharge Recommendation: Subacute rehab Full Code Staffed with Stroke Attending - Dr. Majano. Thank you for the opportunity to participate in the care of this patient. Please page the neurology service pager with questions. Domingo Spangler DO, IM PGY-1 Cosigned by Cirilo Majano MD at 11/28/2024 3:31 PM EDT Associated attestation - Cirilo Majano MD - 11/28/2024 3:31 PM EDT I saw and evaluated the patient with the resident/fellow. I discussed the case with the resident/fellow and agree with the findings and plan as documented. * Progress Notes - Flakito Ko, PharmD - 11/27/2024 12:53 PM EDT Antithrombosis Monitoring: Warfarin Michelle Felipe is a 74 y.o. female who has been continued on warfarin for LV thrombus. Warfarin Indication & Goal Anticoagulation Indication/Goal Warfarin Indication: Left Ventricular Thrombus;Atrial fibrillation Reason DOAC not prescribed: Failure on Alternate Therapy Duration of Anticoagulation: Indefinite Target INR: 2-3 Warfarin Prior to Admission: Yes Prior to Admission Daily Warfarin Regimen: Warfarin 5mg daily + 7.5mg on Friday Prior to Admission Weekly Warfarin Dose: 37.5mg Assessment Warfarin INR & Dose Trends Date INR Warfarin Dose (mg) Comments 11/20 2.5 11/21 5 mg (not given) DHT clogged, unable to give medication 11/22 1.6 5mg 11/23 1.8 4mg 11/24 2.1 4mg 11/25 2.3 4mg 11/26 2.5 4mg 11/27 2.9 4mg Consider dose reduction if INR continues increasing Plan Anticoagulation Plan Warfarin Pharmacist Managed?: Yes Warfarin Plan: Continue current dose Specify Warfarin Dose: warfarin 4mg [facility] Warfarin Dosing Protocol Followed?: Yes Bridging Agent in Conjunction With Warfarin? : No INR Monitoring Frequency: Monitor INR daily Patient Education : Complete and documented Will continue to follow patient's clinical progress daily. Flakito Ko PharmD PGY1 Acute Care Resident Available on secure chat * Progress Notes - Domingo Spangler, - 11/27/2024 12:40 PM EDT Stroke [facility] Progress Note Subjective Overnight the patient had an episode of hypoglycemia with BG dropping as low as 38. Nursing gave patient orange juice and PO glucose. Patient was asymptomatic throughout. Patient reported that she was feeling better from a breathing standpoint this morning but that she has been somewhat nauseous. Patient denies diarrhea, constipation, or vomiting. Patient reports mildvague abdominal pain that is relieved with defecation. Patient is still eating and drinking well. Objective Visit Vitals BP (!) 155/57 (BP Location: Left arm, Patient Position: Lying) Pulse 60 Temp 36.7 ??C (98.1 ??F) (Oral) SpO2 100% Physical exam Constitutional: in no acute distress HENT: normocephalic, non-erythematous oropharynx, oral ulcers present, anicteric sclera Cardiovascular: no appreciable murmurs, gallops, or rubs Respiratory: symmetric chest expansion, lungs clear to auscultation Psychiatric: appropriate mood and affect, cooperative Neurological: Mental Status: The patient is alert and interactive, able to follow commands. Oriented to person, place, and time, Speech: Intact Articulation, Fluent language CN: II - PERRLA III, IV, - EOMI V - Facial sensation intact VII - Brow raise and smile symmetrical VIII - Auditory acuity intact IX, X - Palate elevation symmetric, uvula midline XI - SCM and Trapezius strength intact XII - Tongue protrudes midline Motor: Normal bulk and tone RUE: 4/5 strength LUE: 4/5 strength RLE: 4/5 strength LLE: 4/5 strength Gait: Deferred Labs Personally reviewed labs, including a BMP which was notable for hyperglycemia, mild hyponatremia, hypochloremia. INR 2.9 (H), PTT ??, Anti-Xa ?? BMP Na 132 (L) Cl 91 (L) BUN 18 Glu 248 (H) K 3.5 (L) Co2 26 Cr 0.85 Ca 8.4 (L) iCa ?? Imaging No new neuroimaging today. Assessment/Plan Michelle Felipe is a 74 year old woman with PMHx of resolved chronic LV thrombus, atrial fibrillationon warfarin, prior stroke with no residual deficit, diabetes, hypertension, hyperlipidemia, SLE, HFpEF, and chronic hypoxic respiratory failure 2/2 recurrent pleural effusions who presented with slurred speech and left facial droop. # Acute ischemic stroke in right temporal lobe # Cerebral edema with brain compression # Dysarthria and left facial droop # Impaired functional activities due to stroke (POA) # limitation of activities due to disability from stroke # History of Afib # History of LV thrombus - NIHSS 2 on admission - LKN: 11:45 a.m. on 11/20/2024 - Mechanism: Cardioembolic given history of atrial fibrilation - Risk factors: atrial fibrillation, diabetes mellitus, hyperlipidemia, hypertension, and history of chronic LV thrombus - CT Head demonstrated showed no acute intracranial abnormality. 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 - CTH repeat on 915 AM shows ischemic infarct in temporal lobe on right. - Thrombolytics not given due to history of anticoagulant use in the last 24 hours - Thrombectomy not performed due to no LVO - Echo: LVEF 44%, septal motion consistent with conduction abnormality; no visible left ventricularthrombus - EKG: ventricular paced rhythm Plan - BP goals: <160 - Na goals: Normal - Secondary stroke prophylaxis: Atorvastatin 40 mg, restarted warfarin and stopped aspririn - PT/OT- subacute rehab recs - [employer]: Diet recs with IDDSI 7 easy to chew (no mixed consistencies), IDDSI 3 moderately thick liquids via SINGLE cup/straw SIP, meds whole in puree/pudding. Repeat modified barium swallow in ~5-7 days. - Neuro checks and NIHSS per protocol - Continuous telemetry monitoring - mMoCA and PHQ-9 at discharge # Acute on chronic hypoxic respiratory failure 2/ # Hospital acquired pneumonia and # Recurrent pleural effusion s/p R sided thoracentesis (09/11/24) - on home oxygen 2L - 11/25 Infectious workup significant for WBC elevated 11.82, procalcitonin elevated 1.53, respiratory culture with gram negative rods and gram positive cocci in pairs and chains. - CT chest w contrast significant for moderate right and trace left pleural effusion with consolidation collapse adjacent to the right pleural effusion and airspace opacity/consolidation in the left lower lobe - Cultures growing enterobacter cloacae - Patient removed IV line this morning so Zosyn is being held until access can be reestablished. Plan - Continue Zosyn 4.5g q6hrs per pulmonology recommendation. - No need to switch to tLov from warfarin as there are no plans for thoracentesis at this point. - Resumed home lasix 80mg. - Up to chair TID - Continue incentive spirometry Chronic medical conditions: Acute on chronic HFpEF - Continuing home oxygen 2L - Not significantly volume overloaded on exam although does have some pedal edema - Continuing home furosemide, metoprolol Nausea Mild Abdominal Pain -Patient is having regular bowel movements -Patient is eating well and drinking well -Last EKG with QTC >550, so must avoid QTC prolonging antiemetics -Will recheck EKG and can give benadryl if nausea worsens or persists Hypothyroidism - Continuing Levothyroxine 125 mcg DM - Restarted home doses of insulin since patient has been eating well with hyperglycemia - Continuing SSI and hypoglycemia monitoring SLE - Follows with [facility], on plaquenil and mycophenolate - Has c/o painful mouth sores and sores along her elbow and hand small joint along with possible dactylitis - Continuing home Hydroxychloroquine Chronic Neuropathic pain - Continuing home Gabapentin and Duloxetine Fluids: PO Diet: IDDSI 7 easy to chew (no mixed consistencies), IDDSI 3 moderately thick liquids(due to aspiration with thin liquids) via SINGLE cup/straw SIP, meds whole in puree/pudding. DVT ppx: pLOV Discharge Recommendation: Subacute rehab Full Code Staffed with Stroke Attending - Dr. Majano. Thank you for the opportunity to participate in the care of this patient. Please page the neurology service pager with questions. Domingo Spangler DO, IM PGY-1 Cosigned by Cirilo Majano MD at 11/27/2024 2:20 PM EDT Associated attestation - Cirilo Majano MD - 11/27/2024 2:20 PM EDT I saw and evaluated the patient with the resident/fellow. I discussed the case with the resident/fellow and agree with the findings and plan as documented. * Care Plan - Joanna Be RN - 11/27/2024 9:43 AM EDT Problem: Adult Inpatient Plan of Care Goal: Absence of Hospital-Acquired Illness or Injury Intervention: Identify and Manage Fall Risk Flowsheets (Taken 11/27/2024940) Safety Promotion/Fall Prevention: activity supervised Intervention: Prevent Skin Injury Flowsheets (Taken 11/27/2024940) Body Position: lower extremity elevated Intervention: Prevent and Manage VTE (Venous Thromboembolism) Risk Flowsheets (Taken 11/27/2024940) VTE Prevention/Management: bilateral SCDs (sequential compression devices) on Intervention: Prevent Infection Flowsheets (Taken 11/27/2024940) Infection Prevention: cohorting utilized environmental surveillance performed equipment surfaces disinfected hand hygiene promoted Goal: Optimal Comfort and Wellbeing Intervention: Monitor Pain and Promote Comfort Flowsheets (Taken 11/27/2024940) Pain Management Interventions: medication (see MAR) Intervention: Provide Person-Centered Care Flowsheets (Taken 11/27/2024940) Trust Relationship/Rapport: care explained choices provided Problem: Fall Injury Risk Goal: Absence of Fall and Fall-Related Injury Intervention: Identify and Manage Contributors Flowsheets (Taken 11/27/2024940) Medication Review/Management: medications reviewed Self-Care Promotion: independence encouraged Intervention: Promote Injury-Free Environment Flowsheets (Taken 11/27/2024940) Safety Promotion/Fall Prevention: activity supervised Problem: Stroke, Ischemic (Includes Transient Ischemic Attack) Goal: Optimal Coping Intervention: Support Psychosocial Response to Stroke Flowsheets (Taken 11/27/2024940) Family/Support System Care: caregiver stress acknowledged Goal: Effective Bowel Elimination Intervention: Promote Effective Bowel Elimination Flowsheets (Taken 11/27/2024940) Bowel Elimination Management: other (see comments) Goal: Optimal Cerebral Tissue Perfusion Intervention: Protect and Optimize Cerebral Perfusion Flowsheets (Taken 11/27/2024940) Cerebral Perfusion Promotion: blood pressure monitored Goal: Optimal Cognitive Function Intervention: Optimize Cognitive Function Flowsheets (Taken 11/27/2024940) Environment Familiarity/Consistency: daily routine followed Goal: Improved Communication Skills Intervention: Optimize Communication Skills Flowsheets (Taken 11/27/2024940) Communication Enhancement Strategies: call light answered in person Goal: Optimal Functional Ability Intervention: Optimize Functional Ability Flowsheets (Taken 11/27/2024940) Activity Management: activity adjusted per tolerance Adaptive Equipment Use: raised toilet Self-Care Promotion: independence encouraged Goal: Optimal Nutrition Intake Intervention: Promote and Optimize Fluid and Food Intake Flowsheets (Taken 11/27/2024940) Nutrition Interventions: supplemental foods provided diet advanced Goal: Effective Oxygenation and Ventilation Intervention: Optimize Oxygenation and Ventilation Flowsheets (Taken 11/27/2024940) Airway/Ventilation Management: airway patency maintained Goal: Improved Sensorimotor Function Intervention: Optimize Range of Motion, Motor Control and Function Flowsheets (Taken 11/27/2024940) Positioning: Shoulder: safety cues provided Intervention: Optimize Sensory and Perceptual Ability Flowsheets (Taken 11/27/2024940) Pressure Reduction Techniques: rest period provided between sit times Sensation Impairment Protection: cues provided for safety external pressure sources minimized Pressure Reduction Devices: feet on footrest/footstool Goal: Safe and Effective Swallow Intervention: Optimize Eating and Swallowing Flowsheets (Taken 11/27/2024940) Aspiration Precautions: awake/alert before oral intake Goal: Effective Urinary Elimination Intervention: Promote Effective Bladder Elimination Flowsheets (Taken 11/27/2024940) Urinary Elimination Promotion: absorbent pad/diaper use encouraged Problem: Skin Injury Risk Increased Goal: Skin Health and Integrity Intervention: Optimize Skin Protection Flowsheets (Taken 11/27/2024940) Activity Management: activity adjusted per tolerance Pressure Reduction Techniques: rest period provided between sit times Pressure Reduction Devices: feet on footrest/footstool Intervention: Promote and Optimize Oral Intake Flowsheets (Taken 11/27/2024940) Nutrition Interventions: supplemental foods provided diet advanced Problem: Mobility Impairment Goal: Optimal Mobility Intervention: Optimize Mobility Flowsheets (Taken 11/27/2024940) Activity Management: activity adjusted per tolerance Problem: Swallowing Impairment Goal: Optimal Eating and Swallowing Intervention: Optimize Eating and Swallowing Flowsheets (Taken 11/27/2024940) Aspiration Precautions: awake/alert before oral intake Nutrition Interventions: supplemental foods provided diet advanced Problem: Functional Deficit Goal: Improved Balance and Postural Control Intervention: Optimize Balance and Safe Activity Flowsheets (Taken 11/27/2024940) Activity Management: activity adjusted per tolerance Adaptive Equipment Use: raised toilet Safety Promotion/Fall Prevention: activity supervised Self-Care Promotion: independence encouraged Goal: Optimal Cognitive Function Intervention: Optimize Cognitive Function Flowsheets (Taken 11/27/2024940) Environment Familiarity/Consistency: daily routine followed Self-Care Promotion: independence encouraged Goal: Compensation for Sensory Deficit Intervention: Optimize Sensory Function Flowsheets (Taken 11/27/2024940) Pressure Reduction Techniques: rest period provided between sit times Sensation Impairment Protection: cues provided for safety external pressure sources minimized Problem: Self-Care Deficit Goal: Improved Ability to Complete Activities of Daily Living Intervention: Promote Activity and Functional [place] Flowsheets (Taken 11/27/2024940) Activity Assistance Provided: assistance, 2 people Adaptive Equipment Use: raised toilet Self-Care Promotion: independence encouraged * Care Plan - Temitope Pearl - 11/27/2024 1:46 AM EDT Problem: Adult Inpatient Plan of Care Goal: Plan of Care Review 11/27/2024145 by Temitope Pearl Outcome: Ongoing, Progressing 11/27/2024137 by Temitope Pearl Outcome: Ongoing, Progressing Flowsheets Taken 11/27/2024137 by Temitope Pearl Progress: improving Taken 11/22/2024 0154 by Nneka Curran RN Plan of Care Reviewed With: patient spouse Goal: Patient-Specific Goal (Individualized) 11/27/2024145 by Temitope Pearl Outcome: Ongoing, Progressing 11/27/2024137 by Temitope Pearl Outcome: Ongoing, Progressing Goal: Absence of Hospital-Acquired Illness or Injury 11/27/2024145 by Temitope Pearl Outcome: Ongoing, Progressing 11/27/2024137 by Temitope Pearl Outcome: Ongoing, Progressing Intervention: Identify and Manage Fall Risk Flowsheets (Taken 11/27/2024) Safety Promotion/Fall Prevention: activity supervised Intervention: Prevent Skin Injury Flowsheets (Taken 11/27/2024137) Body Position: foot of bed elevated heels elevated Skin Protection: incontinence pads utilized Intervention: Prevent and Manage VTE (Venous Thromboembolism) Risk Flowsheets (Taken 11/27/2024) VTE Prevention/Management: SCDs (sequential compression devices) on bilateral Intervention: Prevent Infection Flowsheets (Taken 11/22/2024 0154 by Nneka Curran RN) Infection Prevention: cohorting utilized environmental surveillance performed equipment surfaces disinfected hand hygiene promoted rest/sleep promoted single patient room provided Goal: Optimal Comfort and Wellbeing 11/27/2024145 by Temitope Pearl Outcome: Ongoing, Progressing 11/27/2024137 by Temitope Pearl Outcome: Ongoing, Progressing Intervention: Monitor Pain and Promote Comfort Flowsheets (Taken 11/25/20241941) Pain Management Interventions: relaxation techniques promoted pillow support provided emotional support food care clustered Intervention: Provide Person-Centered Care Flowsheets (Taken 11/25/20241941) Trust Relationship/Rapport: care explained emotional support provided choices provided questions encouraged empathic listening provided questions answered reassurance provided thoughts/feelings acknowledged Problem: Fall Injury Risk Goal: Absence of Fall and Fall-Related Injury 11/27/2024145 by Temitope Pearl Outcome: Ongoing, Progressing 11/27/2024137 by Temitope Pearl Outcome: Ongoing, Progressing Intervention: Identify and Manage Contributors Flowsheets Taken 11/27/2024137 by Temitope Pearl Medication Review/Management: medications reviewed Taken 11/26/2024 1040 by Genny Landa, RN Self-Care Promotion: independence encouraged BADL personal routines maintained Intervention: Promote Injury-Free Environment Flowsheets (Taken 11/27/2024 0000) Safety Promotion/Fall Prevention: activity supervised Problem: Stroke, Ischemic (Includes Transient Ischemic Attack) Goal: Optimal Coping 11/27/2024145 by Temitope Pearl Outcome: Ongoing, Progressing 11/27/2024137 by Temitope Pearl Outcome: Ongoing, Progressing Intervention: Support Psychosocial Response to Stroke Flowsheets (Taken 11/23/2024 0921 by Marquita Hodges, EVITA) Supportive Measures: active listening utilized self-care encouraged verbalization of feelings encouraged Family/Support System Care: caregiver stress acknowledged self-care encouraged Goal: Effective Bowel Elimination 11/27/2024145 by Temitope Pearl Outcome: Ongoing, Progressing 11/27/2024137 by Temitope Pearl Outcome: Ongoing, Progressing Intervention: Promote Effective Bowel Elimination Flowsheets Taken 11/27/2024137 by Temitope Pearl Bowel Elimination Management: hygiene measures promoted toileting offered relaxation techniques promoted Taken 11/26/2024 1040 by Genny Landa, RN Bowel Program: maintenance program followed Goal: Optimal Cerebral Tissue Perfusion 11/27/2024145 by Temitope Pearl Outcome: Ongoing, Progressing 11/27/2024137 by Temitope Pearl Outcome: Ongoing, Progressing Intervention: Protect and Optimize Cerebral Perfusion Flowsheets Taken 11/25/2024 1954 Stabilization Measures: legs elevated verbal stimulation provided Fluid/Electrolyte Management: oral rehydration therapy initiated Cerebral Perfusion Promotion: blood pressure monitored normothermia promoted Taken 11/25/2024 1942 Sensory Stimulation Regulation: care clustered lighting decreased television on Goal: Optimal Cognitive Function 11/27/2024 014 by Temitope Pearl Outcome: Ongoing, Progressing 11/27/2024137 by Temitope Pearl Outcome: Ongoing, Progressing Intervention: Optimize Cognitive Function Flowsheets Taken 11/25/2024 1942 by Temitope Pearl Sensory Stimulation Regulation: care clustered lighting decreased television on Environment Familiarity/Consistency: familiar objects from home provided Taken 11/22/2024 0154 by Nneka Curran RN Reorientation Measures: clock in view Goal: Improved Communication Skills 11/27/2024145 by Temitope Pearl Outcome: Ongoing, Progressing 11/27/2024137 by Temitope Pearl Outcome: Ongoing, Progressing Intervention: Optimize Communication Skills Flowsheets (Taken 11/25/20241953) Communication Enhancement Strategies: call light answered in person family/caregiver assisted with communication verbal communication attempts encouraged Goal: Optimal Functional Ability 11/27/2024145 by Temitope Pearl Outcome: Ongoing, Progressing 11/27/2024137 by Temitope Pearl Outcome: Ongoing, Progressing Intervention: Optimize Functional Ability Flowsheets Taken 11/27/2024137 by Temitope Pearl Activity Management: bedrest Adaptive Equipment Use: use encouraged Taken 11/26/2024 1040 by Genny Lanad RN Self-Care Promotion: independence encouraged BADL personal routines maintained Goal: Optimal Nutrition Intake 11/27/2024145 by Temitope Pearl Outcome: Ongoing, Progressing 11/27/2024137 by Temitope Pearl Outcome: Ongoing, Progressing Intervention: Promote and Optimize Fluid and Food Intake Flowsheets (Taken 11/27/2024137) Oral Nutrition Promotion: rest periods promoted Nutrition Interventions: frequent small meals provided meal set-up provided Goal: Effective Oxygenation and Ventilation 11/27/2024145 by Temitope Pearl Outcome: Ongoing, Progressing 11/27/2024137 by Temitope Pearl Outcome: Ongoing, Progressing Intervention: Optimize Oxygenation and Ventilation Flowsheets Taken 11/27/2024 0000 Head of Bed (HOB) Positioning: HOB elevated Taken 11/25/20244 Airway/Ventilation Management: airway patency maintained oxygen therapy provided Goal: Improved Sensorimotor Function 11/27/2024 0146 by Temitope Pearl Outcome: Ongoing, Progressing 11/27/2024 013 by Temitope Pearl Outcome: Ongoing, Progressing Intervention: Optimize Range of Motion, Motor Control and Function Flowsheets Taken 11/27/2024 0000 by Temitope Pearl Range of Motion: active ROM (range of motion) encouraged Taken 11/26/2024 1040 by Genny Landa RN Positioning/Transfer Devices: repositioning sheet pillows Taken 11/25/2024 1954 by Temitope Pearl Positioning: Shoulder: safety cues provided Taken 11/22/2024 0154 by Nneka Curran RN Spasticity Management: positioned with supportive device Intervention: Optimize Sensory and Perceptual Ability Flowsheets Taken 11/26/2024 1040 by Genny Landa RN Pressure Reduction Techniques: heels elevated off bed Pressure Reduction Devices: positioning supports utilized Taken 11/23/2024 0921 by Marquita Hodges RN Sensation Impairment Protection: cues provided for safety Goal: Safe and Effective Swallow 11/27/2024 014 by Temitope Pearl Outcome: Ongoing, Progressing 11/27/2024137 by Temitope Pearl Outcome: Ongoing, Progressing Intervention: Optimize Eating and Swallowing Flowsheets Taken 11/26/2024 1040 by Genny Landa RN Aspiration Precautions: food consistency adjusted awake/alert before oral intake distractions minimized during oral intake Swallowing Interventions: Dysphagia: food and liquid intake alternated food placed on right side mouth checked for residue/pocketing Swallowing Method: throat clear/extra swallow Taken 11/24/2024 0530 by Hoda Smith RN Feeding/Eating Techniques: adaptive equipment/utensils utilized close supervision provided Goal: Effective Urinary Elimination 11/27/2024145 by Temitope Pearl Outcome: Ongoing, Progressing 11/27/2024137 by Temitope Pearl Outcome: Ongoing, Progressing Intervention: Promote Effective Bladder Elimination Flowsheets (Taken 11/25/2024 1942) Urinary Elimination Promotion: absorbent pad/diaper use encouraged catheter patency maintained frequent voiding encouraged positioned for ease of voiding toileting device within reach voiding relaxation promoted Problem: Skin Injury Risk Increased Goal: Skin Health and Integrity 11/27/2024145 by Temitope Pearl Outcome: Ongoing, Progressing 11/27/2024137 by Temitope Pearl Outcome: Ongoing, Progressing Intervention: Optimize Skin Protection Flowsheets Taken 11/27/2024137 Activity Management: bedrest Skin Protection: incontinence pads utilized Taken 11/27/2024 0000 Head of Bed (HOB) Positioning: HOB elevated Intervention: Promote and Optimize Oral Intake Flowsheets (Taken 11/27/2024137) Oral Nutrition Promotion: rest periods promoted Nutrition Interventions: frequent small meals provided meal set-up provided Problem: Mobility Impairment Goal: Optimal Mobility 11/27/2024145 by Temitope Pearl Outcome: Ongoing, Progressing 11/27/2024137 by Temitope Pearl Outcome: Ongoing, Progressing Intervention: Optimize Mobility Flowsheets Taken 11/27/2024137 by Temitope Pearl Activity Management: bedrest Taken 11/26/2024 1040 by Genny Landa RN Positioning/Transfer Devices: repositioning sheet pillows Problem: Swallowing Impairment Goal: Optimal Eating and Swallowing 11/27/2024145 by Temitope Pearl Outcome: Ongoing, Progressing 11/27/2024137 by Temitope Pearl Outcome: Ongoing, Progressing Intervention: Optimize Eating and Swallowing Flowsheets Taken 11/27/2024137 by Temitope Pearl Nutrition Interventions: frequent small meals provided meal set-up provided Taken 11/26/2024 1040 by Genny Landa RN Aspiration Precautions: food consistency adjusted awake/alert before oral intake distractions minimized during oral intake Swallowing Interventions: Dysphagia: food and liquid intake alternated food placed on right side mouth checked for residue/pocketing Swallowing Method: throat clear/extra swallow Problem: Functional Deficit Goal: Improved Balance and Postural Control 11/27/2024145 by Temitope Pearl Outcome: Ongoing, Progressing 11/27/2024137 by Temitope Pearl Outcome: Ongoing, Progressing Intervention: Optimize Balance and Safe Activity Flowsheets Taken 11/27/2024137 by Temitope Pearl Activity Management: bedrest Adaptive Equipment Use: use encouraged Taken 11/27/2024 0000 by Temitope Pearl Safety Promotion/Fall Prevention: activity supervised Taken 11/26/2024 1040 by Genny Landa RN Self-Care Promotion: independence encouraged BADL personal routines maintained Goal: Optimal Cognitive Function 11/27/2024 0146 by Temitope Pearl Outcome: Ongoing, Progressing 11/27/2024 013 by Temitope Pearl Outcome: Ongoing, Progressing Intervention: Optimize Cognitive Function Flowsheets Taken 11/26/2024 1040 by Genny Landa, RN Self-Care Promotion: independence encouraged BADL personal routines maintained Taken 11/25/2024 1942 by Temitope Pearl Sensory Stimulation Regulation: care clustered lighting decreased television on Environment Familiarity/Consistency: familiar objects from home provided Goal: Compensation for Sensory Deficit 11/27/2024 014 by Temitope Pearl Outcome: Ongoing, Progressing 11/27/2024137 by Temitope Pearl Outcome: Ongoing, Progressing Intervention: Optimize Sensory Function Flowsheets Taken 11/27/2024 013 by Temitope Pearl Skin Protection: incontinence pads utilized Taken 11/26/2024 1040 by Genny Landa RN Pressure Reduction Techniques: heels elevated off bed Taken 11/23/2024 0921 by Marquita Hodges, EVITA Sensation Impairment Protection: cues provided for safety Problem: Self-Care Deficit Goal: Improved Ability to Complete Activities of Daily Living 11/27/2024 0146 by Temitope Pearl Outcome: Ongoing, Progressing 11/27/2024 013 by Temitope Pearl Outcome: Ongoing, Progressing Intervention: Promote Activity and Functional [place] Flowsheets Taken 11/27/2024 013 by Temitope Pearl Adaptive Equipment Use: use encouraged Taken 11/26/2024 1400 by Genny Landa, RN Activity Assistance Provided: assistance, 2 people Taken 11/26/2024 1040 by Genny Landa, RN Self-Care Promotion: independence encouraged BADL personal routines maintained * Consults - Hayley Gabriel - 11/26/2024 3:52 PM EDT Adult Nutrition Evaluation Note Michelle Felipe 74 y.o. female CSN: [id number] Room/Bed 123/123A Nutrition evaluation type: follow-up Reason for evaluation: Hospital course: 74 y o F admitted 11/20/24 for acute right side ischemic stroke. Past medical/ surgical history: Past Medical History[1] Surgical History[2] Social history: Additional comments: Spoke with patient at bedside. Reports her appetite is good. Reports weight los from 150lbs to 127lbs since this summer. Vitals and Basic Assessment: BP: 132/67 Temp: 36.5 ??C (97.7 ??F) Oxygen Therapy: Supplemental oxygen O2 Delivery Method: Nasal cannula Km Coma Scale Score: 15 Jann Scale Score: 13 Most Recent BM Date: 11/26/24 Allergies: NKA Medications: Current Medications[3] Meds were reviewed: Yes Labs: Lab Results Component Value Date WBC 11.82 (H) 11/25/2024 HGB 11.5 11/25/2024 HCT 36.3 11/25/2024 MCV 97 11/25/2024 PLT 332 11/25/2024 Lab Results Component Value Date GLUCOSE 196 (H) 11/26/2024 CALCIUM 8.7 (L) 11/26/2024 NA 135 (L) 11/26/2024 K 3.6 11/26/2024 CO2 34 (H) 11/26/2024 CL 93 (L) 11/26/2024 BUN 22 11/26/2024 CREATININE 0.90 11/26/2024 Lab Results Component Value Date CALCIUM 8.7 (L) 11/26/2024 No results found for: CRP Lab Results Component Value Date HGBA1C 8.7 (H) 11/20/2024 Lab Results Component Value Date ALT 18 11/24/2024 AST 34 11/24/2024 ALKPHOS 126 11/24/2024 BILITOT 0.5 11/24/2024 Anthropometrics: Height: 162.6 cm (5' 4.02 ) Weight: 53.4 kg (117 lb 11.6 oz) BMI (Calculated): 20.2 [place] Body Weight (kg): 54.5 Percent [place] Body Weight: 97.9 Wt Readings from Last 10 Encounters: 11/21/24 53.4 kg (117 lb 11.6 oz) Estimated Needs: Metabolic Cart Study Results: Current Nutrition Intake: Diet Order: Adult Diet Diet Texture: Easy to Chew 7 Fluid Consistency: Mildly Thick 2 ([place]) Percent Meals Eaten (%): 85% avg x 4 meals Diet Experience and Nutrition History: Diet Education Provided: Will monitor Pertinent home medications: Protestant needs: Nutrition Focused Physical Exam: Physical exam performed on (date): 11/26 [place] (muscles): None Clavicle (muscle): None Shoulder (muscle): Mild Thigh (muscle): Severe Calf (muscle): Severe Orbital (fat): Mild Triceps (fat): Moderate Weight Loss: -22% weight loss x ~6 months Assessment of Malnutrition: Malnutrition Identified: Yes Meets Criteria For: Severe malnutrition In Context Of: Chronic illness/ injury Based On: Severe muscle mass loss, Severe weight loss Nutrition Problem: Predicted suboptimal energy intake related to decreased ability to consume sufficient energy as evidenced by weight loss, muscle loss. Status of Nutrition Diagnosis: New Nutrition Interventions and Recommendations: Continue diet per speech Boost [facility] BID Nutrition Monitoring and Goals: - Tolerate PO intake >75% - Will monitor weight, skin integrity, PO intake/enteral infusion, labs, I&O, and follow up perdepartment acuity. Acuity Level: 2 Hayley Gabriel, DEREK, LD [1] No past medical history on file. [2] No past surgical history on file. [3] Current Facility-Administered Medications: acetaminophen (Tylenol) tablet 1,000 mg, 1,000 mg, Oral, q6h PRN, Yakelin Pa MBBS, 1,000 mg at 11/24/24 1539 albuterol (Proventil) (2.5 MG/3ML) 0.083% nebulizer solution 2.5 mg, 2.5 mg, Nebulization, q6h PRN,Marisabel Subramanian MD atorvastatin (Lipitor) tablet 40 mg, 40 mg, Oral, Nightly, Cirilo Majano MD, 40 mg at brimonidine (AlphaGAN P) 0.2 % ophthalmic solution 1 drop, 1 drop, Both Eyes, Nightly, Babs Alvarez MD, 1 drop at 11/25/242133 calcium-vitamin D 500-200 MG-UNIT per tablet 1 tablet, 1 tablet, Oral, Daily, Cirilo Maajno MD, 1 tablet at 11/26/24 0900 cetirizine (ZyrTEC) tablet 10 mg, 10 mg, Oral, Nightly, Cirilo Majano MD, 10 mg at 11/25/24 213 glucose (Glutose) 40 % oral gel 15-30 grams of glucose, 15-30 grams of glucose, Sublingual, q15 minPRN OR dextrose 10 % (D10W) bolus 125 mL, 125 mL, Intravenous, q15 min PRN OR dextrose 10 %(D10W) bolus 250 mL, 250 mL, Intravenous, q15 min PRN OR glucagon (human recombinant) injection1 mg, 1 mg, Intramuscular, q15 min PRN, Ruben Caal, SHANA DULoxetine (Cymbalta) DR capsule 80 mg, 80 mg, Oral, Daily, Cirilo Majano MD, 80 mg at 11/26/24 0859 ezetimibe (Zetia) tablet 10 mg, 10 mg, Oral, Daily, Cirilo Majano MD, 10 mg at 11/26/24 0900 furosemide (Lasix) tablet 80 mg, 80 mg, Oral, Daily, Domingo Spangler DO, 80 mg at 11/26/24 1216 gabapentin (Neurontin) capsule 600 mg, 600 mg, Oral, BID, Cirilo Majano MD, 600 mg at 859 hydrALAZINE (Apresoline) injection 10 mg, 10 mg, Intravenous, q1h PRN OR hydrALAZINE (Apresoline) injection 20 mg, 20 mg, Intravenous, q1h PRN, Ruben Caal, MBMAC hydroxychloroquine (Plaquenil) tablet 200 mg, 200 mg, Oral, Nightly, Cirilo Majano MD, 200 mg at 11/25/242131 insulin glargine-yfgn 100 UNIT/ML injection 5 Units, 5 Units, Subcutaneous, BID, Yaeklin Pa MBBS, 5 Units at 11/26/24901 insulin lispro (Admelog) 100 units/mL injection - Correction - Resistant Dose, 0-10 Units, Subcutaneous, TID with meals, Yakelin Pa MBBS, 6 Units at 11/26/24 1216 insulin lispro (Admelog) injection - Correction - Nighttime Dose, 0-3 Units, Subcutaneous, Twice atnight, Yakelin Pa MBBS, 3 Units at 11/24/24 2213 Insulin Lispro (Admelog, HumaLOG) 100 UNIT/ML injection 5 Units, 5 Units, Subcutaneous, TID with meals, Lv Gallo MD, 5 Units at 11/26/241215 labetalol (Normodyne,Trandate) injection 10 mg, 10 mg, Intravenous, q1h PRN OR labetalol (Normodyne,Trandate) injection 20 mg, 20 mg, Intravenous, q1h PRN, Ruben Caal MBBS latanoprost (Xalatan) 0.005 % ophthalmic solution 1 drop, 1 drop, Both Eyes, Nightly, Babs Alvarez MD, 1 drop at 11/25/242133 levothyroxine (Synthroid, Levoxyl) tablet 125 mcg, 125 mcg, Oral, Daily with breakfast, Cirilo Majano MD, 125 mcg at 11/26/24 09 metoprolol tartrate (Lopressor) tablet 25 mg, 25 mg, Oral, BID, Cirilo Majano MD, 25 mg at 11/26/24 09 Tiotropium [place] Monohydrate (Spiriva Respimat) 2.5 MCG/ACT inhaler 2 puff, 2 puff, Inhalation, Daily, 2 puff at 11/26/24 09 AND mometasone-formoterol (Dulera 100) 100-5 MCG/ACT inhaler 2 puff, 2 puff, Inhalation, BID, Babs Alvarez MD, 2 puff at 11/26/24 0902 mycophenolate (Cellcept) capsule 1,000 mg, 1,000 mg, Oral, BID, Yakelin Pa MBBS, 1,000 mg at 11/26/24 0901 nitroglycerin (Nitrostat) SL tablet 0.4 mg, 0.4 mg, Sublingual, q5 min PRN, Babs Alvarez MD piperacillin-tazobactam (Zosyn) 4.5 g in sodium chloride 0.9% 100 mL IVPB (vial adapter required), 4.5 g, Intravenous, q6h, Domingo Spangler, DO, Last Rate: 36.7 mL/hr at 11/26/24 1217, 4.5 g at 11/26/24 1217 senna-docusate (Karyn-Colace) 8.6-50 MG per tablet 1 tablet, 1 tablet, Oral, BID, Cirilo Majano MD, 1 tablet at 11/26/24 0901 [COMPLETED] Insert peripheral IV, , , Once AND [COMPLETED] Saline lock IV, , , Once AND [DISCONTINUED] sodium chloride 0.9 % flush 10 mL, 10 mL, Intravenous, q12h, 10 mL at 11/21/24 1322 AND sodium chloride 0.9 % flush 10 mL, 10 mL, Intravenous, PRN, Ruben Caal MBBS warfarin (Coumadin) tablet 4 mg, 4 mg, Oral, Daily, Cirilo Majano MD, 4 mg at 11/25/24 1826 * Progress Notes - Tre Leyva RN - 11/26/2024 2:43 PM EDT Discussed pt in morning huddle. Was notified by team that pt medically ready. Attempted to call facility liasion X2. Left message and sent updated PT/OT notes through [facility]. * Progress Notes - Bonny Cancino PharmD - 11/26/2024 12:14 PM EDT Antithrombosis Monitoring: Warfarin Michelle Felipe is a 74 y.o. female who has been continued on warfarin for LV thrombus. Warfarin Indication & Goal Anticoagulation Indication/Goal Warfarin Indication: Left Ventricular Thrombus;Atrial fibrillation Reason DOAC not prescribed: Failure on Alternate Therapy Duration of Anticoagulation: Indefinite Target INR: 2-3 Warfarin Prior to Admission: Yes Prior to Admission Daily Warfarin Regimen: Warfarin 5mg daily + 7.5mg on Friday Prior to Admission Weekly Warfarin Dose: 37.5mg Assessment Warfarin INR & Dose Trends Date INR Warfarin Dose (mg) Comments 11/20 2.5 11/21 5 mg (not given) DHT clogged, unable to give medication 11/22 1.6 5mg 11/23 1.8 4mg 11/24 2.1 4mg 11/25 2.3 4mg 11/26 2.5 4mg Plan Anticoagulation Plan Warfarin Pharmacist Managed?: Yes Warfarin Plan: Continue current dose Specify Warfarin Dose: warfarin 4mg [facility] Warfarin Dosing Protocol Followed?: Yes Bridging Agent in Conjunction With Warfarin? : No INR Monitoring Frequency: Monitor INR daily Patient Education : Complete and documented Will continue to follow patient's clinical progress daily. Bonny Cancino PharmD 11/26/2024 12:13 PM * Progress Notes - Katerina Conroy - 11/26/2024 11:15 AM EDT OCCUPATIONAL THERAPY TREATMENT PATIENT DATA Patient Name Michelle Felipe Session Date 11/26/2024 OT Discharge Recommendations Subacute rehab Equipment Recommendations Defer to facility Transportation Recommendations Family car MOBILITY GUIDELINES Activity: Stroke Stroke Guidelines: General - No Restrictions. NOT receving tPA Extremity Precautions: No Extremity Precautions Other mobility precautions: No other precautions required PRECAUTIONS Medical Precautions Medical Precautions: Fall precautions Medical Precautions: SBP less than 180 PRESENTATION Oxygen None (Room air) Telemetry Yes Lines and Tubes Female External Urinary Catheter 11/22/24 2335 (Active) Peripheral IV 11/26/24 Anterior;Right;Upper Arm (Active) Pre-Session Supine, Head of bed elevated, Lines intact, Bed alarm Post-Session Sitting in chair, Chair alarm, RN notified, Call light in reach, Lines intact, SCDs applied Bracing (if applicable) SUBJECTIVE PARTICIPANTS IN CARE Patient/Caregiver Comments Pt agreeable to OT session. Visitors Present No Program Professional (if applicable) OBJECTIVE PAIN Pt with no complaints of pain. DELIRIUM SCREENING RASS: Alert and calm Confusion Assessment Method-ICU (CAM-ICU/PCAM-ICU) Feature 3: Altered Level of Consciousness: Negative BED MOBILITY Level of [place] Physical/Non-physical Assist Adaptive Equipment Utilized Rolling/ Turning Scooting/ Bridging Contact guard (to EOB) Set-up required, Minimal cues, Nonverbal cues (demo/gestures), Verbal Cues Supine to Sit Contact guard (to L EOB) Nonverbal cues (demo/gestures), Verbal Cues, Minimal cues, Additional assist utilized for safety Sit to Supine TRANSFERS Level of [place] Physical/Non- physical Assist Adaptive Equipment Utilized Sit to Stand Minimum assist (75% patient's effort) (from EOB and Mod A from commode and shower chair) Set-up required, Verbal Cues, Nonverbal cues (demo/gestures) Hand held assist (vs RUE to rail andBUE to sink) Stand to sit Minimum assist (75% patient's effort) Additional assist utilized for safety, Verbal Cues, Nonverbal cues (demo/gestures), Minimal cues Hand held assist Bed to Chair Toilet Transfer Shower Transfer FUNCTIONAL MOBILITY Level of [place] Distance Adaptive Equipment Utilized Ambulation Moderate assistance, Additional assist utilized for safety 15' + 15' Hand held assist None INTERVENTIONS SELF-CARE Treatment Minutes (if applicable) 25 Comments Level of [place] Adaptive Equipment Utilized Interventions Feeding Grooming Contact guard, Minimum assistance Sitting sinkside Pt brushed teeth, brushed hair and washed face with mostly CGA to min A. Pt completed seated at sinkside with min verbal cues for initiation/sequencing. Bathing Upper Body Dressing Lower Body Dressing Sock Level of Assistance: Dependent Adult Briefs Level of Assistance: Dependent Pt required dep A to don socks while supine bed level and to doff/don brief during toilet transfer, mostly due to requiring UE's for balance/support while standing and performing transfers. Toileting Dependent Toilet Pt ambulated to bathroom with mod A and performed toilet transfer with mod A. Pt had BM and required dep A for karyn-care. IADLs Health Management Community Re-Entry ASSESSMENT Pt tolerated treatment session well without adverse effects, noted to have vital signs stable throughout. Pt with improvement in transfer training, ambulation and ADL independence. Pt continues to present with impaired balance, strength and activity tolerance when compared to baseline. Pt would be unable to access a bathroom, unable to enter/exit a home and unable to manage their own medications correctly to prevent readmission. Pt requires assistance in all aspects of transfers, mobility and self-care tasks. In addition, pt is at a high risk of falls and would be unable to take care of self independently at this time. Pt is most appropriate for subacute rehab at this time. Pt would be ableto participate in 1-2 hours/day of therapy with good potential for progress in functional and/or modified independence. OT RECOMMENDATIONS Discharge Destination Subacute rehab Discharge Equipment Defer to facility PLAN Continue with OT POC, 2-5x/wk OT GOALS OT GOAL DETAILS Goal Established Date Time Frame Goal Status OT Goal 1: Pt. will perform UE dressing with min A sitting edge of bed. 11/22/24 2 weeks OT Goal 2: Pt. will perform toilet transfers with min A. 11/22/24 2 weeks OT Goal 3: Pt. will perform grooming sitting edge of bed with SBA. 11/22/24 2 weeks Written by Katerina Conroy on 11/26/24 at 12:29 PM. * Progress Notes - Carlo Solano E - 11/26/2024 11:14 AM EDT Physical Therapy Treatment Patient Name: Michelle Felipe Today's Date: 11/26/2024 PT Discharge Recommendations: Subacute rehab Equipment Recommended: Defer to facility SUBJECTIVE Pt reports her daughter is coming to visit today. Participants in Care Family/Caregiver Present: No PRESENTATION Oxygen None (Room air) Lines and Tubes Female External Urinary Catheter 11/22/24 0105 (Active) Peripheral IV 11/26/24 Anterior;Right;Upper Arm (Active) Pre-Session Supine, Head of bed elevated, Lines intact, Bed alarm Post-Session Sitting in chair, Chair alarm, RN notified, Call light in reach, Lines intact Precautions Medical Precautions: Fall precautions Medical Precautions: SBP less than 180 OBJECTIVE Pain No report of pain Delirium Screening RASS: Alert and calm Confusion Assessment Method-ICU (CAM-ICU/PCAM-ICU) Feature 3: Altered Level of Consciousness: Negative INTERVENTIONS THERAPEUTIC ACTIVITY Treatment Minutes 17 Interventions Therapist facilitated bed mobility training, transfer training, and balance training to improve upright activity tolerance, endurance, strength, and functional mobility. Refer to specific sections for further detail on specific interventions performed. BED MOBILITY Interventions PT provided min verbal/tactile cues and increased time to initiate, facilitate, and sequence to L EOB and to obtain foot support to floor in prep for upright transfer. Level of [place] Physical/Non- physical Assist Adaptive Equipment Utilized Rolling/ Turning Scooting/ Bridging Contact guard (to EOB) Set-up required, Minimal cues, Nonverbal cues (demo/gestures), Verbal Cues Supine to Sit Contact guard (to L EOB) Nonverbal cues (demo/gestures), Verbal Cues, Minimal cues, Additional assist utilized for safety Sit to Supine TRANSFERS Interventions BUE HEAD WOOD GRINDER vs BUE to additional support for improved balance. Tactile cue to pelvis to facilitate proximal stability for sit>stand and stand>sit. Level of [place] Physical/Non- physical Assist Adaptive Equipment Utilized Sit to Stand Minimum assist (75% patient's effort) (from EOB and Mod A from commode and shower chair) Set-up required, Verbal Cues, Nonverbal cues (demo/gestures) Hand held assist (vs RUE to rail andBUE to sink) Stand to sit Minimum assist (75% patient's effort) Additional assist utilized for safety, Verbal Cues, Nonverbal cues (demo/gestures), Minimal cues Hand held assist Bed to Chair Toilet Transfer Shower Transfer BALANCE Postural Appearance Posture: Within Functional Limits Pt sat unsupported on EOB, chair, and commode in attempt to increase trunk strength, tolerance to upright activity, and sitting balance for participation in upright activities. Level of [place] Balance Support Interventions Static Sit Standby assist Feet unsupported Dynamic Sit Contact guard Feet unsupported Dynamic Sitting-Balance: Reaching for objects, Anterior/Posterior weight shifts, Lateral weight shifts Static Stand Minimum assistance Left upper extremity support, Right upper extremity support Dynamic Stand Moderate assistance Right upper extremity support, Left upper extremity support Lateral weight shifts, Anterior/Posterior weight shifts, Reaching for objects GAIT TRAINING Treatment Minutes 8 Interventions Gait Training Interventions: PT provided BUE HEAD WOOD GRINDER for balance/safety. PT provided mod tactile cue to pelvis to facilitate improved linda lateral weight shift and forward step progression. Verbal cue for step sequening to start. Pt with improving step length and fluidity overtime. Level of [place] Distance Adaptive Equipment Utilized Gait Moderate assistance 15'x2 trials Hand held assist Gait Analysis mild decreased L stance control with slight buckling, decreased step/stride length, visual gaze to floor, step to gait pattern. ASSESSMENT Pt tolerated session without adverse effects. Pt progressing appropriately with bed mobility, transfers, and to gait training today. Pt more alert and participatory throughout session. Pt continues to require PT assist 2/2 fall risk and the following impairments: strength, balance, activity toleranc e/endurance. Pt will continue to benefit from skilled physical therapy to reduce fall risk, reduce burden of care, and to optimize post stroke IND with mobility and ADLs. PT Recommendations Discharge Destination: Subacute rehab Discharge Equipment: Defer to facility PLAN Continue with established PT plan of care 2 - 5 times per week to progress towards PT goals. PT GOALS PT GOAL DETAILS Goal Established Date Time Frame Goal Status PT Goal 1: Patient will perform supine to and from sit with CGA. 11/22/24 2 weeks PT Goal 2: Patient will perform sit to and from stand with RW or AAD with CGA. 11/22/24 2 weeks PT Goal 3: Patient will walk 40 feet with RW on level surfaces with CGA. 11/22/24 2 weeks PT Goal 4: Patient and family will participate in discharge planning to include family teaching, referrals, equipment ordering and HEP. 11/22/24 2 weeks Written by Carlo Solano on 11/26/24 at 12:08 PM. * Care Plan - Genny Landa RN - 11/26/2024 10:41 AM EDT Problem: Adult Inpatient Plan of Care Goal: Plan of Care Review Outcome: Ongoing, Progressing Goal: Patient-Specific Goal (Individualized) Outcome: Ongoing, Progressing Flowsheets (Taken 11/26/2024 1000) Patient/Family-Specific Goals (Include Timeframe): Patient will remain free from falls and injury during this shift. Individualized Care Needs: safety Anxieties, Fears or Concerns: none verbalized Goal: Absence of Hospital-Acquired Illness or Injury Outcome: Ongoing, Progressing Goal: Optimal Comfort and Wellbeing Outcome: Ongoing, Progressing Problem: Fall Injury Risk Goal: Absence of Fall and Fall-Related Injury Outcome: Ongoing, Progressing Intervention: Identify and Manage Contributors Flowsheets (Taken 11/26/2024 1040) Medication Review/Management: medications reviewed Self-Care Promotion: independence encouraged BADL personal routines maintained Problem: Stroke, Ischemic (Includes Transient Ischemic Attack) Goal: Optimal Coping Outcome: Ongoing, Progressing Goal: Effective Bowel Elimination Outcome: Ongoing, Progressing Intervention: Promote Effective Bowel Elimination Flowsheets (Taken 11/26/2024 1040) Bowel Elimination Management: hygiene measures promoted Bowel Program: maintenance program followed Goal: Optimal Cerebral Tissue Perfusion Outcome: Ongoing, Progressing Goal: Optimal Cognitive Function Outcome: Ongoing, Progressing Goal: Improved Communication Skills Outcome: Ongoing, Progressing Goal: Optimal Functional Ability Outcome: Ongoing, Progressing Goal: Optimal Nutrition Intake Outcome: Ongoing, Progressing Goal: Effective Oxygenation and Ventilation Outcome: Ongoing, Progressing Goal: Improved Sensorimotor Function Outcome: Ongoing, Progressing Goal: Safe and Effective Swallow Outcome: Ongoing, Progressing Goal: Effective Urinary Elimination Outcome: Ongoing, Progressing Problem: Skin Injury Risk Increased Goal: Skin Health and Integrity Outcome: Ongoing, Progressing Intervention: Optimize Skin Protection Flowsheets (Taken 11/26/2024 1040) Activity Management: activity adjusted per tolerance Pressure Reduction Techniques: heels elevated off bed Pressure Reduction Devices: positioning supports utilized Skin Protection: pulse oximeter probe site changed Head of Bed (HOB) Positioning: HOB elevated Problem: Mobility Impairment Goal: Optimal Mobility Outcome: Ongoing, Progressing Intervention: Optimize Mobility Flowsheets (Taken 11/26/2024 1040) Activity Management: activity adjusted per tolerance Assistive Device Utilized: other (see comments) Positioning/Transfer Devices: repositioning sheet pillows Problem: Swallowing Impairment Goal: Optimal Eating and Swallowing Outcome: Ongoing, Progressing Intervention: Optimize Eating and Swallowing Flowsheets (Taken 11/26/2024 1040) Aspiration Precautions: food consistency adjusted awake/alert before oral intake distractions minimized during oral intake Nutrition Interventions: meal set-up provided Swallowing Interventions: Dysphagia: food and liquid intake alternated food placed on right side mouth checked for residue/pocketing Swallowing Method: throat clear/extra swallow Problem: Functional Deficit Goal: Improved Balance and Postural Control Outcome: Ongoing, Progressing Intervention: Optimize Balance and Safe Activity Flowsheets (Taken 11/26/2024 1040) Activity Management: activity adjusted per tolerance Adaptive Equipment Use: used independently Safety Promotion/Fall Prevention: activity supervised clutter-free environment maintained Self-Care Promotion: independence encouraged BADL personal routines maintained Goal: Optimal Cognitive Function Outcome: Ongoing, Progressing Goal: Compensation for Sensory Deficit Outcome: Ongoing, Progressing Problem: Self-Care Deficit Goal: Improved Ability to Complete Activities of Daily Living Outcome: Ongoing, Progressing Intervention: Promote Activity and Functional [place] Flowsheets (Taken 11/26/2024 1040) Activity Assistance Provided: assistance, 2 people Adaptive Equipment Use: used independently Self-Care Promotion: independence encouraged BADL personal routines maintained * Nursing Note - Mariana Barr RN - 11/26/2024 9:27 AM EDT Stroke Team Interdisciplinary Transition of Care Huddle (BEN) Patient: Michelle Ag Care Team: Patient Care Team: PcpHeather as PCP - General (Family Medicine) Staff Present: Marksmanship Instructor, Speech Therapy, Physical/Occupational Therapy, Neurology Resident, andStroke Fur Blowing Machine Operator Level of Care: Progressive Status: stable AIS protocol Subacute recommendations Medically ready Mariana Barr RN 11/26/24 9:27 AM * Progress Notes - Domingo Spangler DO - 11/26/2024 8:54 AM EDT Stroke [place] Progress Note Subjective NAEON. Michelle reports that she is still feeling unwell this morning. She says that she has continued to have a productive cough and feels like she is having trouble breathing. Her has continued to require supplemental oxygen. She denies fevers, chills, chest pain. Objective Visit Vitals BP (!) 152/63 (BP Location: Right arm, Patient Position: Lying) Pulse 62 Temp 36.7 ??C (98.1 ??F) (Oral) SpO2 100% Physical exam Constitutional: in no acute distress HENT: normocephalic, non-erythematous oropharynx, oral ulcers present, anicteric sclera Cardiovascular: no appreciable murmurs, gallops, or rubs Respiratory: symmetric chest expansion, rhonchi present Psychiatric: appropriate mood and affect, cooperative Neurological: Mental Status: The patient is alert and interactive, able to follow commands. Oriented to person, place, and time, Speech: Intact Articulation, Fluent language CN: II - PERRLA III, IV, - EOMI V - Facial sensation intact VII - Brow raise and smile symmetrical VIII - Auditory acuity intact IX, X - Palate elevation symmetric, uvula midline XI - SCM and Trapezius strength intact XII - Tongue protrudes midline Motor: Normal bulk and tone RUE: 4/5 strength LUE: 4/5 strength RLE: 4/5 strength LLE: 4/5 strength Sensory: Sensation to light touch in all four extremities intact and symmetric. Coordination: No limb ataxia with [id number] or [id number]. Cortical: No Extinction Gait: Deferred Labs Personally reviewed labs, including a BMP which was notable for hyperglycemia, mild hyponatremia, hypochloremia. INR 2.5 (H), PTT ??, Anti-Xa ?? BMP Na 135 (L) Cl 93 (L) BUN 22 Glu 196 (H) K 3.6 Co2 34 (H) Cr 0.90 Ca 8.7 (L) iCa ?? Imaging No new neuroimaging today. Assessment/Plan Michelle Felipe is a 74 year old woman with PMHx of resolved chronic LV thrombus, atrial fibrillationon warfarin, prior stroke with no residual deficit, diabetes, hypertension, hyperlipidemia, SLE, HFpEF, and chronic hypoxic respiratory failure 2/2 recurrent pleural effusions who presented with slurred speech and left facial droop. # Acute ischemic stroke in right temporal lobe # Cerebral edema with brain compression # Dysarthria and left facial droop # Impaired functional activities due to stroke (POA) # limitation of activities due to disability from stroke # History of Afib # History of LV thrombus - NIHSS 2 on admission - LKN: 11:45 a.m. on 11/20/2024 - Mechanism: Cardioembolic given history of atrial fibrilation - Risk factors: atrial fibrillation, diabetes mellitus, hyperlipidemia, hypertension, and history of chronic LV thrombus - CT Head demonstrated showed no acute intracranial abnormality. 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 - CTH repeat on 11/22 AM shows ischemic infarct in temporal lobe on right. - Thrombolytics not given due to history of anticoagulant use in the last 24 hours - Thrombectomy not performed due to no LVO - Echo: LVEF 44%, septal motion consistent with conduction abnormality; no visible left ventricularthrombus - EKG: ventricular paced rhythm Plan - BP goals: <160 - Na goals: Normal - Secondary stroke prophylaxis: Atorvastatin 40 mg, restarted warfarin and stopped aspririn - PT/OT- subacute rehab recs - INSULATOR CUTTER AND FORMER: Diet recs with IDDSI 7 easy to chew (no mixed consistencies), IDDSI 3 moderately thick liquids via SINGLE cup/straw SIP, meds whole in puree/pudding. Repeat modified barium swallow in ~5-7 days. - Neuro checks and NIHSS per protocol - Continuous telemetry monitoring - mMoCA and PHQ-9 at discharge # Acute on chronic hypoxic respiratory failure 2/ # Hospital acquired pneumonia and # Recurrent pleural effusion s/p R sided thoracentesis (09/11/24) - on home oxygen 2L - h/o prior pleurodesis per daughter - 11/22 consulted pulmonology for pleural tapping/ pleurodesis- hold off iso no signs of infection - 11/24 reconsulted pulmonology for thoracentesis iso episode of fever and increased WBC count 14.95- recommended CT chest w contrast along with blood, urine and sputum cultures for further evaluation given signs of infection - 11/25 Infectious workup significant for WBC elevated 11.82, procalcitonin elevated 1.53, respiratory culture with gram negative rods and gram positive cocci in pairs and chains. - CT chest w contrast significant for moderate right and trace left pleural effusion with consolidation collapse adjacent to the right pleural effusion and airspace opacity/consolidation in the left lower lobe - Cultures growing enterobacter cloacae Plan - Transitioned to Zosyn 4.5g q6hrs per pulmonology recommendation. - No need to switch to tLov from warfarin as there are no plans for thoracentesis at this point. - Resumed home lasix 80mg. - Up to chair TID - Continue incentive spirometry Chronic medical conditions: Acute on chronic HFpEF - Continuing home oxygen 2L - Not significantly volume overloaded on exam although does have some pedal edema - Continuing home furosemide, metoprolol Hypothyroidism - Continuing Levothyroxine 125 mcg DM - Restarted home doses of insulin since patient has been eating well with hyperglycemia - Continuing SSI and hypoglycemia monitoring SLE - Follows with [facility]ology, on plaquenil and mycophenolate - Has c/o painful mouth sores and sores along her elbow and hand small joint along with possible dactylitis - Continuing home Hydroxychloroquine Chronic Neuropathic pain - Continuing home Gabapentin and Duloxetine Fluids: PO Diet: IDDSI 7 easy to chew (no mixed consistencies), IDDSI 3 moderately thick liquids(due to aspiration with thin liquids) via SINGLE cup/straw SIP, meds whole in puree/pudding. DVT ppx: pLOV Discharge Recommendation: Subacute rehab Full Code Staffed with Stroke Attending - Dr. Majano. Thank you for the opportunity to participate in the care of this patient. Please page the neurology service pager with questions. Domingo Spanglre DO, IM PGY-1 Cosigned by Cirilo Majano MD at 11/26/2024 2:06 PM EDT Associated attestation - Cirilo Majano MD - 11/26/2024 2:06 PM EDT I saw and evaluated the patient with the resident/fellow. I discussed the case with the resident/fellow and agree with the findings and plan as documented. * Care Plan - Temitope Pearl - 11/25/2024 7:59 PM EDT Problem: Adult Inpatient Plan of Care Goal: Plan of Care Review 11/25/20241953 by Temitope Pearl Outcome: Ongoing, Progressing 11/25/20241941 by Temitope Pearl Outcome: Ongoing, Progressing Goal: Patient-Specific Goal (Individualized) 11/25/20241953 by Temitope Pearl Outcome: Ongoing, Progressing 11/25/20241941 by Temitope Pearl Outcome: Ongoing, Progressing Goal: Absence of Hospital-Acquired Illness or Injury 11/25/20241953 by Temitope Pearl Outcome: Ongoing, Progressing 11/25/20241941 by Temitope Pearl Outcome: Ongoing, Progressing Intervention: Identify and Manage Fall Risk Flowsheets (Taken 11/25/2024 1600 by Genny Landa, RN) Safety Promotion/Fall Prevention: activity supervised assistive device/personal items within reach clutter-free environment maintained fall prevention program maintained lighting adjusted mobility aid in reach nonskid shoes/slippers when out of bed room organization consistent safety round/check completed toileting scheduled Goal: Optimal Comfort and Wellbeing 11/25/20241953 by Temitope Pearl Outcome: Ongoing, Progressing 11/25/20241941 by Temitope Pearl Outcome: Ongoing, Progressing Intervention: Monitor Pain and Promote Comfort Flowsheets (Taken 11/25/20241941) Pain Management Interventions: relaxation techniques promoted pillow support provided emotional support food care clustered Intervention: Provide Person-Centered Care Flowsheets (Taken 11/25/20241941) Trust Relationship/Rapport: care explained emotional support provided choices provided questions encouraged empathic listening provided questions answered reassurance provided thoughts/feelings acknowledged Problem: Fall Injury Risk Goal: Absence of Fall and Fall-Related Injury 11/25/20241953 by Temitope Pearl Outcome: Ongoing, Progressing 11/25/20241941 by Temitope Pearl Outcome: Ongoing, Progressing Intervention: Identify and Manage Contributors Flowsheets (Taken 11/25/20241941) Medication Review/Management: medications reviewed Self-Care Promotion: BADL personal objects within reach BADL personal routines maintained independence encouraged Problem: Stroke, Ischemic (Includes Transient Ischemic Attack) Goal: Optimal Coping 11/25/20241953 by Temitope Pearl Outcome: Ongoing, Progressing 11/25/20241941 by Temitope Pearl Outcome: Ongoing, Progressing Intervention: Support Psychosocial Response to Stroke Flowsheets (Taken 11/23/2024 0921 by Marquita Hodges, RN) Supportive Measures: active listening utilized self-care encouraged verbalization of feelings encouraged Family/Support System Care: caregiver stress acknowledged self-care encouraged Goal: Effective Bowel Elimination 11/25/20241953 by Temitope Pearl Outcome: Ongoing, Progressing 11/25/20241941 by Temitope Pearl Outcome: Ongoing, Progressing Intervention: Promote Effective Bowel Elimination Flowsheets Taken 11/25/20241953 by Temitope Pearl Bowel Program: maintenance program followed Taken 11/22/2024 0154 by Nneka Curran, RN Bowel Elimination Management: hygiene measures promoted relaxation techniques promoted Goal: Optimal Cerebral Tissue Perfusion 11/25/20241953 by Temitope Pearl Outcome: Ongoing, Progressing 11/25/20241941 by Temitope Pearl Outcome: Ongoing, Progressing Intervention: Protect and Optimize Cerebral Perfusion Flowsheets Taken 11/25/20241953 Stabilization Measures: legs elevated verbal stimulation provided Fluid/Electrolyte Management: oral rehydration therapy initiated Cerebral Perfusion Promotion: blood pressure monitored normothermia promoted Taken 11/25/20241941 Sensory Stimulation Regulation: care clustered lighting decreased television on Goal: Optimal Cognitive Function 11/25/20241953 by Temitope Pearl Outcome: Ongoing, Progressing 11/25/20241941 by Temitope Pearl Outcome: Ongoing, Progressing Intervention: Optimize Cognitive Function Flowsheets (Taken 11/22/2024 0154 by Nneka Curran, RN) Reorientation Measures: clock in view Goal: Improved Communication Skills 11/25/20241953 by Temitope Pearl Outcome: Ongoing, Progressing 11/25/20241941 by Temitope Pearl Outcome: Ongoing, Progressing Intervention: Optimize Communication Skills Flowsheets (Taken 11/25/20241953) Communication Enhancement Strategies: call light answered in person family/caregiver assisted with communication verbal communication attempts encouraged Goal: Optimal Functional Ability 11/25/20241953 by Temitope Pearl Outcome: Ongoing, Progressing 11/25/20241941 by Temitope Pearl Outcome: Ongoing, Progressing Goal: Optimal Nutrition Intake 11/25/20241953 by Temitope Pearl Outcome: Ongoing, Progressing 11/25/20241941 by Temitope Pearl Outcome: Ongoing, Progressing Intervention: Promote and Optimize Fluid and Food Intake Flowsheets (Taken 11/24/2024 0530 by Hoda Smith, EVITA) Oral Nutrition Promotion: adaptive equipment use encouraged Goal: Effective Oxygenation and Ventilation 11/25/20241953 by Temitope Pearl Outcome: Ongoing, Progressing 11/25/20241941 by Temitope Pearl Outcome: Ongoing, Progressing Intervention: Optimize Oxygenation and Ventilation Flowsheets (Taken 11/25/20241953) Airway/Ventilation Management: airway patency maintained oxygen therapy provided Goal: Improved Sensorimotor Function 11/25/20241953 by Temitope Pearl Outcome: Ongoing, Progressing 11/25/20241941 by Temitope Pearl Outcome: Ongoing, Progressing Intervention: Optimize Range of Motion, Motor Control and Function Flowsheets Taken 11/25/20241953 by Temitope Pearl Positioning: Shoulder: safety cues provided Taken 11/25/2024 1800 by Genny Landa RN Range of Motion: active ROM (range of motion) encouraged Goal: Safe and Effective Swallow 11/25/20241953 by Temitope Pearl Outcome: Ongoing, Progressing 11/25/20241941 by Temitope Pearl Outcome: Ongoing, Progressing Goal: Effective Urinary Elimination 11/25/20241953 by Temitope Pearl Outcome: Ongoing, Progressing 11/25/20241941 by Temitope Pearl Outcome: Ongoing, Progressing Intervention: Promote Effective Bladder Elimination Flowsheets (Taken 11/25/20241941) Urinary Elimination Promotion: absorbent pad/diaper use encouraged catheter patency maintained frequent voiding encouraged positioned for ease of voiding toileting device within reach voiding relaxation promoted Problem: Skin Injury Risk Increased Goal: Skin Health and Integrity 11/25/20241953 by Temitope Pearl Outcome: Ongoing, Progressing 11/25/20241941 by Temitope Pearl Outcome: Ongoing, Progressing Intervention: Optimize Skin Protection Flowsheets (Taken 11/25/20241941) Activity Management: activity adjusted per tolerance Pressure Reduction Techniques: heels elevated off bed weight shift assistance provided pressure points protected Pressure Reduction Devices: positioning supports utilized heel offloading device utilized Skin Protection: pulse oximeter probe site changed incontinence pads utilized skin sealant/moisture barrier applied Head of Bed (HOB) Positioning: HOB elevated Problem: Mobility Impairment Goal: Optimal Mobility 11/25/20241953 by Temitope Pearl Outcome: Ongoing, Progressing 11/25/20241941 by Temitope Pearl Outcome: Ongoing, Progressing Intervention: Optimize Mobility Flowsheets (Taken 11/25/20241941) Activity Management: activity adjusted per tolerance Assistive Device Utilized: gait belt Positioning/Transfer Devices: pillows repositioning sheet Problem: Swallowing Impairment Goal: Optimal Eating and Swallowing 11/25/20241953 by Temitope Pearl Outcome: Ongoing, Progressing 11/25/20241941 by Temitope Pearl Outcome: Ongoing, Progressing Intervention: Optimize Eating and Swallowing Flowsheets (Taken 11/25/20241941) Aspiration Precautions: liquids thickened awake/alert before oral intake distractions minimized during oral intake food consistency adjusted food texture adjusted liquids/solids alternated oral hygiene care promoted upright posture maintained Nutrition Interventions: food preferences provided frequent small meals provided Swallowing Interventions: Dysphagia: food and liquid intake alternated small bites/sips encouraged monitored for cough during intake upright position maintained 30 mins after intake monitored for fatigue Swallowing Method: throat clear/extra swallow Problem: Functional Deficit Goal: Improved Balance and Postural Control 11/25/20241953 by Temitope Pearl Outcome: Ongoing, Progressing 11/25/20241941 by Temitope Pearl Outcome: Ongoing, Progressing Goal: Optimal Cognitive Function 11/25/20241953 by Temitope Pearl Outcome: Ongoing, Progressing 11/25/20241941 by Temitope Pearl Outcome: Ongoing, Progressing Intervention: Optimize Cognitive Function Flowsheets (Taken 11/25/20241941) Sensory Stimulation Regulation: care clustered lighting decreased television on Environment Familiarity/Consistency: familiar objects from home provided Self-Care Promotion: BADL personal objects within reach BADL personal routines maintained independence encouraged Goal: Compensation for Sensory Deficit 11/25/20241953 by Temitope Pearl Outcome: Ongoing, Progressing 11/25/20241941 by Temitope Pearl Outcome: Ongoing, Progressing Problem: Self-Care Deficit Goal: Improved Ability to Complete Activities of Daily Living 11/25/20241953 by Temitope Pearl Outcome: Ongoing, Progressing 11/25/20241941 by Temitope Pearl Outcome: Ongoing, Progressing Intervention: Promote Activity and Functional [place] Flowsheets (Taken 11/25/20241941) Activity Assistance Provided: assistance, 2 people Adaptive Equipment Use: use encouraged used with assistance Self-Care Promotion: BADL personal objects within reach BADL personal routines maintained independence encouraged * Care Plan - Temitope Pearl - 11/25/2024 7:49 PM EDT Problem: Adult Inpatient Plan of Care Goal: Plan of Care Review Outcome: Ongoing, Progressing Goal: Patient-Specific Goal (Individualized) Outcome: Ongoing, Progressing Goal: Absence of Hospital-Acquired Illness or Injury Outcome: Ongoing, Progressing Goal: Optimal Comfort and Wellbeing Outcome: Ongoing, Progressing Intervention: Monitor Pain and Promote Comfort Flowsheets (Taken 11/25/20241941) Pain Management Interventions: relaxation techniques promoted pillow support provided emotional support food care clustered Intervention: Provide Person-Centered Care Flowsheets (Taken 11/25/20241941) Trust Relationship/Rapport: care explained emotional support provided choices provided questions encouraged empathic listening provided questions answered reassurance provided thoughts/feelings acknowledged Problem: Fall Injury Risk Goal: Absence of Fall and Fall-Related Injury Outcome: Ongoing, Progressing Intervention: Identify and Manage Contributors Flowsheets (Taken 11/25/20241941) Medication Review/Management: medications reviewed Self-Care Promotion: BADL personal objects within reach BADL personal routines maintained independence encouraged Problem: Stroke, Ischemic (Includes Transient Ischemic Attack) Goal: Optimal Coping Outcome: Ongoing, Progressing Goal: Effective Bowel Elimination Outcome: Ongoing, Progressing Goal: Optimal Cerebral Tissue Perfusion Outcome: Ongoing, Progressing Goal: Optimal Cognitive Function Outcome: Ongoing, Progressing Goal: Improved Communication Skills Outcome: Ongoing, Progressing Goal: Optimal Functional Ability Outcome: Ongoing, Progressing Goal: Optimal Nutrition Intake Outcome: Ongoing, Progressing Goal: Effective Oxygenation and Ventilation Outcome: Ongoing, Progressing Goal: Improved Sensorimotor Function Outcome: Ongoing, Progressing Goal: Safe and Effective Swallow Outcome: Ongoing, Progressing Goal: Effective Urinary Elimination Outcome: Ongoing, Progressing Intervention: Promote Effective Bladder Elimination Flowsheets (Taken 11/25/20241941) Urinary Elimination Promotion: absorbent pad/diaper use encouraged catheter patency maintained frequent voiding encouraged positioned for ease of voiding toileting device within reach voiding relaxation promoted Problem: Skin Injury Risk Increased Goal: Skin Health and Integrity Outcome: Ongoing, Progressing Intervention: Optimize Skin Protection Flowsheets (Taken 11/25/20241941) Activity Management: activity adjusted per tolerance Pressure Reduction Techniques: heels elevated off bed weight shift assistance provided pressure points protected Pressure Reduction Devices: positioning supports utilized heel offloading device utilized Skin Protection: pulse oximeter probe site changed incontinence pads utilized skin sealant/moisture barrier applied Head of Bed (HOB) Positioning: HOB elevated Problem: Mobility Impairment Goal: Optimal Mobility Outcome: Ongoing, Progressing Intervention: Optimize Mobility Flowsheets (Taken 11/25/20241941) Activity Management: activity adjusted per tolerance Assistive Device Utilized: gait belt Positioning/Transfer Devices: pillows repositioning sheet Problem: Swallowing Impairment Goal: Optimal Eating and Swallowing Outcome: Ongoing, Progressing Intervention: Optimize Eating and Swallowing Flowsheets (Taken 11/25/20241941) Aspiration Precautions: liquids thickened awake/alert before oral intake distractions minimized during oral intake food consistency adjusted food texture adjusted liquids/solids alternated oral hygiene care promoted upright posture maintained Nutrition Interventions: food preferences provided frequent small meals provided Swallowing Interventions: Dysphagia: food and liquid intake alternated small bites/sips encouraged monitored for cough during intake upright position maintained 30 mins after intake monitored for fatigue Swallowing Method: throat clear/extra swallow Problem: Functional Deficit Goal: Improved Balance and Postural Control Outcome: Ongoing, Progressing Goal: Optimal Cognitive Function Outcome: Ongoing, Progressing Intervention: Optimize Cognitive Function Flowsheets (Taken 11/25/20241941) Sensory Stimulation Regulation: care clustered lighting decreased television on Environment Familiarity/Consistency: familiar objects from home provided Self-Care Promotion: BADL personal objects within reach BADL personal routines maintained independence encouraged Goal: Compensation for Sensory Deficit Outcome: Ongoing, Progressing Problem: Self-Care Deficit Goal: Improved Ability to Complete Activities of Daily Living Outcome: Ongoing, Progressing Intervention: Promote Activity and Functional [place] Flowsheets (Taken 11/25/20241941) Activity Assistance Provided: assistance, 2 people Adaptive Equipment Use: use encouraged used with assistance Self-Care Promotion: BADL personal objects within reach BADL personal routines maintained independence encouraged * Consults - Denice Wiley RN - 11/25/2024 4:39 PM EDT Blood cultures obtained from right AC using ultrasound guidance. Labeled and collected in Epic at bedside. Transported via tube system. Patient tolerated well, no complications such as bleeding or hematoma. Vein images sent to medical record. Consult completed. * Progress Notes - Nallely Arlette Yamilka, - 11/25/2024 3:37 PM EDT HPI: Michelle Felipe is a 74 y.o. female presenting with a past medical history of heart failure, lupus onCellCept and Plaquenil, AFib, prior LV thrombus and recurrent right effusion with multiple thoracentesis and chest tube but talc slurry pleurodesis on 08/19 24 that failed and was being considered for pleural peritoneal shunt. Patient was admitted on 11/20 with slurred speech and left facial droop. Pulmonology was consulted for concern for infection in the setting of pleural effusion. Review of Systems: GENERAL: denies diaphoresis EYES: no discharge from eyes HENT: denies trauma RESP: no hemoptysis. CARD: denies chest pain Extremities: no weakness GI: no abdominal pain SKIN: No rash, ulcers or subcutaneous nodules on exposed skin NEURO: denies syncope PSYCH: not hyperactive Last Recorded Vitals Blood pressure 136/72, pulse 60, temperature 37.4 ??C (99.4 ??F), temperature source Oral, resp. rate 19, height 1.626 m (5' 4.02 ), weight 53.4 kg (117 lb 11.6 oz), SpO2 99%. Physical Exam Constitutional: Appearance: She is not toxic-appearing. Interventions: Nasal cannula in place. HENT: Head: Normocephalic. Eyes: Pupils: Pupils are equal, round, and reactive to light. Cardiovascular: Rate and Rhythm: Normal rate and regular rhythm. Pulses: Normal pulses. Heart sounds: Normal heart sounds. Pulmonary: Effort: Pulmonary effort is normal. Breath sounds: Rhonchi present. Abdominal: Palpations: Abdomen is soft. Skin: Coloration: Skin is not jaundiced. Neurological: Mental Status: She is alert. Psychiatric: Mood and Affect: Mood normal. Results: Coags: INR Date Value Ref Range Status 11/25/2024 2.3 (H) 0.9 - 1.1 Final aPTT Date Value Ref Range Status 11/20/2024 37 (H) 25 - 35 sec Final CBC: WBC Count Date Value Ref Range Status 11/25/2024 11.82 (H) 3.70 - 10.30 10*3/uL Final HGB Date Value Ref Range Status 11/25/2024 11.5 11.2 - 15.7 g/dL Final HCT Date Value Ref Range Status 11/25/2024 36.3 34.0 - 45.0 % Final RBC Count Date Value Ref Range Status 11/25/2024 3.76 (L) 3.90 - 5.20 10*6/uL Final BMP: Sodium, Plasma Date Value Ref Range Status 11/25/2024 136 136 - 145 mmol/L Final Potassium, Plasma Date Value Ref Range Status 11/25/2024 3.5 (L) 3.6 - 4.9 mmol/L Final Comment: Hemolyzed, result may be falsely increased. Chloride, Plasma Date Value Ref Range Status 11/25/2024 97 97 - 107 mmol/L Final BUN, Plasma Date Value Ref Range Status 11/25/2024 26 (H) 8 - 23 mg/dL Final CO2, Plasma Date Value Ref Range Status 11/25/2024 28 22 - 29 mmol/L Final Creatinine, Plasma Date Value Ref Range Status 11/25/2024 0.77 0.60 - 1.10 mg/dL Final Glucose, Plasma Date Value Ref Range Status 11/25/2024 225 (H) 74 - 99 mg/dL Final Imaging (past 24h): I personally visualized and interpreted all of the imaging studies below and I agree with formal interpretation. XR Chest 1 View Result Date: 11/24/2024 Interval placement of esophagogastric tube with tip terminating in the stomach. Otherwise unchangedagain. CRITICAL RESULT: No. COMMUNICATION: Per this written report. By electronically signing this report, I, the attending physician, attest that I have personally reviewed the images/data for the above examination(s) and agree with the final edited report. Drafted by Yemi Frederick MD on 11/24/2024 1:25 PM Final report signed by Dominic Mcconnell MD on 11/24/2024 1:54 PM Assessment/Plan Michelle Felipe is a 74 y.o. female presenting with a past medical history of heart failure, lupus onCellCept and Plaquenil, AFib, prior LV thrombus and recurrent right effusion with multiple thoracentesis and chest tube but talc slurry pleurodesis on 08/19 24 that failed and was being considered for pleural peritoneal shunt. Patient was admitted on 11/20 with slurred speech and left facial droop. Pulmonology was consulted for concern for infection in the setting of pleural effusion. Acute on chronic hypoxic respiratory failure 2/2 Hospital acquired pneumonia Recurrent pleural effusion s/p R sided thoracentesis (09/11/24) - increase Zosyn dose to 4.5mg to achieve dose needed to cover Pseudomonas - recommend IV Bumex 2mg for Diuresis - Pulmonary Hygiene: CPT q4h while awake, incentive spirometry every hour and PEP with RT - at this time no plan for thoracentesis, feel respiratory symptoms are secondary to HAP. PulmonaryTeam will sign off, Please do not hesitate to reach out with any questions or concerns. Thank you for allowing Pulmonary to participate in the care of this patient. This patient was staffed with Dr. Adamson as the attending physician. Arlette Browning DO PGY-1 Department of Anesthesiology, Critical Care & Pain Medicine Cosigned by Micky Adamson MD at 11/25/2024 3:59 PM EDT Associated attestation - Micky Adamson MD - 11/25/2024 3:59 PM EDT I saw and evaluated the patient with the resident/fellow. I discussed the case with the resident/fellow and agree with the findings and plan as documented. Reviewed repeat CT. Stable pleural effusion but new left sided patchy opacities. Agree with plan tocover for HAP. * Care Plan - Genny Ladna RN - 11/25/2024 2:12 PM EDT Problem: Adult Inpatient Plan of Care Goal: Plan of Care Review Outcome: Ongoing, Progressing Goal: Patient-Specific Goal (Individualized) Outcome: Ongoing, Progressing Flowsheets (Taken 11/25/2024 0800) Patient/Family-Specific Goals (Include Timeframe): Patient will remain free from falls and injury during this shift. Individualized Care Needs: safety Anxieties, Fears or Concerns: none verbalized Goal: Absence of Hospital-Acquired Illness or Injury Outcome: Ongoing, Progressing Goal: Optimal Comfort and Wellbeing Outcome: Ongoing, Progressing Problem: Fall Injury Risk Goal: Absence of Fall and Fall-Related Injury Outcome: Ongoing, Progressing Intervention: Identify and Manage Contributors Flowsheets (Taken 11/25/2024 1410) Medication Review/Management: medications reviewed Self-Care Promotion: independence encouraged Problem: Stroke, Ischemic (Includes Transient Ischemic Attack) Goal: Optimal Coping Outcome: Ongoing, Progressing Goal: Effective Bowel Elimination Outcome: Ongoing, Progressing Goal: Optimal Cerebral Tissue Perfusion Outcome: Ongoing, Progressing Intervention: Protect and Optimize Cerebral Perfusion Flowsheets (Taken 11/25/2024 1410) Stabilization Measures: legs elevated Fluid/Electrolyte Management: oral rehydration therapy initiated Sensory Stimulation Regulation: lighting decreased Cerebral Perfusion Promotion: blood pressure monitored Goal: Optimal Cognitive Function Outcome: Ongoing, Progressing Goal: Improved Communication Skills Outcome: Ongoing, Progressing Goal: Optimal Functional Ability Outcome: Ongoing, Progressing Goal: Optimal Nutrition Intake Outcome: Ongoing, Progressing Goal: Effective Oxygenation and Ventilation Outcome: Ongoing, Progressing Goal: Improved Sensorimotor Function Outcome: Ongoing, Progressing Goal: Safe and Effective Swallow Outcome: Ongoing, Progressing Goal: Effective Urinary Elimination Outcome: Ongoing, Progressing Problem: Skin Injury Risk Increased Goal: Skin Health and Integrity Outcome: Ongoing, Progressing Intervention: Optimize Skin Protection Flowsheets (Taken 11/25/2024 1410) Activity Management: activity adjusted per tolerance Pressure Reduction Techniques: weight shift assistance provided Pressure Reduction Devices: foam padding utilized Skin Protection: pulse oximeter probe site changed Head of Bed (HOB) Positioning: HOB elevated Problem: Mobility Impairment Goal: Optimal Mobility Outcome: Ongoing, Progressing Intervention: Optimize Mobility Flowsheets (Taken 11/25/2024 1410) Activity Management: activity adjusted per tolerance Assistive Device Utilized: lift device Positioning/Transfer Devices: repositioning sheet lift device utilized Problem: Swallowing Impairment Goal: Optimal Eating and Swallowing Outcome: Ongoing, Progressing Intervention: Optimize Eating and Swallowing Flowsheets (Taken 11/25/2024 1410) Aspiration Precautions: awake/alert before oral intake Nutrition Interventions: food preferences provided Swallowing Interventions: Dysphagia: food and liquid intake alternated Swallowing Method: other (see comments) Problem: Functional Deficit Goal: Improved Balance and Postural Control Outcome: Ongoing, Progressing Intervention: Optimize Balance and Safe Activity Flowsheets (Taken 11/25/2024 1410) Activity Management: activity adjusted per tolerance Adaptive Equipment Use: used with assistance Safety Promotion/Fall Prevention: activity supervised Self-Care Promotion: independence encouraged Goal: Optimal Cognitive Function Outcome: Ongoing, Progressing Goal: Compensation for Sensory Deficit Outcome: Ongoing, Progressing Problem: Self-Care Deficit Goal: Improved Ability to Complete Activities of Daily Living Outcome: Ongoing, Progressing Intervention: Promote Activity and Functional [place] Flowsheets (Taken 11/25/2024 1410) Activity Assistance Provided: assistance, 2 people Adaptive Equipment Use: used with assistance Self-Care Promotion: independence encouraged * Progress Notes - Bonny Cancino PharmD - 11/25/2024 12:12 PM EDT Antithrombosis Monitoring: Warfarin Michelle Felipe is a 74 y.o. female who has been continued on warfarin for LV thrombus. Warfarin Indication & Goal Anticoagulation Indication/Goal Warfarin Indication: Left Ventricular Thrombus;Atrial fibrillation Reason DOAC not prescribed: Failure on Alternate Therapy Duration of Anticoagulation: Indefinite Target INR: 2-3 Warfarin Prior to Admission: Yes Prior to Admission Daily Warfarin Regimen: Warfarin 5mg daily + 7.5mg on Friday Prior to Admission Weekly Warfarin Dose: 37.5mg Assessment Anticoagulation Assessment Nutritional Intake: Normal PO Intake Today's INR : Therapeutic Warfarin INR & Dose Trends Date INR Warfarin Dose (mg) Comments 11/20 2.5 11/21 5 mg (not given) DHT clogged, unable to give medication 11/22 1.6 5mg 11/23 1.8 4mg 11/24 2.1 4mg 11/25 2.3 4mg Plan Anticoagulation Plan Warfarin Pharmacist Managed?: Yes Warfarin Plan: Continue current dose Specify Warfarin Dose: warfarin 4mg [facility] Warfarin Dosing Protocol Followed?: Yes Bridging Agent in Conjunction With Warfarin? : No INR Monitoring Frequency: Monitor INR daily Patient Education : Complete and documented Will continue to follow patient's clinical progress daily. Bonny Cancino PharmD 11/25/2024 12:12 PM * Progress Notes - Yakelin Pa MBBS - 11/25/2024 12:10 PM EDT Stroke [place] Progress Note Subjective NAEON. Michelle is doing better today. She is more alert and eating well. She does endorse shortness of breath and feeling congested. She is coughing but no more than previously. She denies chest pain. Objective Visit Vitals BP 136/72 Pulse 60 Temp 37.4 ??C (99.4 ??F) SpO2 99% Physical exam Constitutional: in no acute distress HENT: normocephalic, non-erythematous oropharynx, oral ulcers present, anicteric sclera Cardiovascular: no appreciable murmurs, gallops, or rubs Respiratory: symmetric chest expansion, rhonchi present Psychiatric: appropriate mood and affect, cooperative Neurological: Mental Status: The patient is alert and interactive, able to follow commands. Oriented to person, place, and time, Speech: Intact Articulation, Fluent language CN: II - PERRLA III, IV, - EOMI V - Facial sensation intact VII - Brow raise and smile symmetrical VIII - Auditory acuity intact IX, X - Palate elevation symmetric, uvula midline XI - SCM and Trapezius strength intact XII - Tongue protrudes midline Motor: Normal bulk and tone RUE: 4/5 strength LUE: 4/5 strength RLE: 4/5 strength LLE: 4/5 strength Sensory: Sensation to light touch in all four extremities intact and symmetric. Coordination: No limb ataxia with [id number] or [id number]. Cortical: No Extinction Gait: Deferred Labs Are significant for elevated WBC count 11.82, elevated procalcitonin 1.53 and hyperglycemia. Gram neg rods and few gram po cocci in pairs and chains CBC WBC 11.82 (H) Hb 11.5 Plt 332 Hct 36.3 ANC ?? INR 2.3 (H), PTT ??, Anti-Xa ?? BMP Na 136 Cl 97 BUN 26 (H) Glu 225 (H) K 3.5 (L) Co2 28 Cr 0.77 Ca 7.5 (L) iCa ?? Mg ??, Phos ?? Lactate ?? LFT AST ?? AlkPhos ?? T Prot ?? ALK ?? Bili ?? Alb ?? D.Bili ?? Stroke Labs @STROKELAB@ Imaging No new neuroimaging today. Assessment/Plan Michelle Felipe is a 74 year old woman with PMHx of resolved chronic LV thrombus, atrial fibrillationon warfarin, prior stroke with no residual deficit, diabetes, hypertension, hyperlipidemia, SLE, HFpEF, and chronic hypoxic respiratory failure 2/2 recurrent pleural effusions who presented with slurred speech and left facial droop. # Acute ischemic stroke in right temporal lobe # Cerebral edema with brain compression # Dysarthria and left facial droop # Impaired functional activities due to stroke (POA) # limitation of activities due to disability from stroke # History of Afib # History of LV thrombus - NIHSS 2 on admission - LKN: 11:45 a.m. on 11/20/2024 - Mechanism: Cardioembolic given history of atrial fibrilation - Risk factors: atrial fibrillation, diabetes mellitus, hyperlipidemia, hypertension, and history of chronic LV thrombus - CT Head demonstrated showed no acute intracranial abnormality. 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 - CTH repeat on 915 AM shows ischemic infarct in temporal lobe on right. - Thrombolytics not given due to history of anticoagulant use in the last 24 hours - Thrombectomy not performed due to no LVO - Echo: LVEF 44%, septal motion consistent with conduction abnormality; no visible left ventricularthrombus - EKG: ventricular paced rhythm Plan - BP goals: <160 - Na goals: Normal - Secondary stroke prophylaxis: Atorvastatin 40 mg, restarted warfarin and stopped aspririn - PT/OT- subacute rehab recs - [employer]: Diet recs with IDDSI 7 easy to chew (no mixed consistencies), IDDSI 3 moderately thick liquids via SINGLE cup/straw SIP, meds whole in puree/pudding. Repeat modified barium swallow in ~5-7 days. - Neuro checks and NIHSS per protocol - Continuous telemetry monitoring - mMoCA and PHQ-9 at discharge # Acute on chronic hypoxic respiratory failure 2/2 # Hospital acquired pneumonia and # Recurrent pleural effusion s/p R sided thoracentesis (09/11/24) - on home oxygen 2L - h/o prior pleurodesis per daughter - 11/22 consulted pulmonology for pleural tapping/ pleurodesis- hold off iso no signs of infection - 11/24 reconsulted pulmonology for thoracentesis iso episode of fever and increased WBC count 14.95- recommended CT chest w contrast along with blood, urine and sputum cultures for further evaluation given signs of infection - 11/25 Infectious workup significant for WBC elevated 11.82, procalcitonin elevated 1.53, respiratory culture with gram negative rods and gram positive cocci in pairs and chains. - CT chest w contrast significant for moderate right and trace left pleural effusion with consolidation collapse adjacent to the right pleural effusion and airspace opacity/consolidation in the left lower lobe Plan - Starting Vancomycin and Zosyn - Discuss infectious workup and treatment with Pulmonology - Reach out to Interventional Pulmonology about possible thoracentesis of right pleural effusion - Plan to switch to tLOV from warfarin for thoracentesis - Up to chair TID - Do IV bumex 2 mg once Chronic medical conditions: Acute on chronic HFpEF - Continuing home oxygen 2L - Not significantly volume overloaded on exam although does have some pedal edema - Continuing home furosemide, metoprolol Hypothyroidism - Continuing Levothyroxine 125 mcg DM - Restarted home doses of insulin since patient has been eating well with hyperglycemia - Continuing SSI and hypoglycemia monitoring SLE - Follows with [facility]ology, on plaquenil and mycophenolate - Has c/o painful mouth sores and sores along her elbow and hand small joint along with possible dactylitis - Continuing home Hydroxychloroquine Chronic Neuropathic pain - Continuing home Gabapentin and Duloxetine Fluids: PO Diet: IDDSI 7 easy to chew (no mixed consistencies), IDDSI 3 moderately thick liquids(due to aspiration with thin liquids) via SINGLE cup/straw SIP, meds whole in puree/pudding. DVT ppx: pLOV Discharge Recommendation: Subacute rehab Full Code Nelsy Hansen, MS3 I saw the patient along with the medical student and agree with the note above. Patient was discussed with Attending Physician, Dr Majano. Please see attestation when available. SHANA Triana Resident Physician PGY-1 Cosigned by Cirilo Majano MD at 11/25/2024 4:16 PM EDT Associated attestation - Cirilo Majano MD - 11/25/2024 4:16 PM EDT I saw and evaluated the patient. I discussed the case with the medical student and resident/fellow and agree with the findings and plan as documented. I personally participated in the management of the patient. Cirilo Majano MD * Progress Notes - Cherie Peterson - 11/25/2024 10:32 AM EDT Stroke Team Interdisciplinary Transition of Care Huddle ([facility]) Patient: Michelle Ag Care Team: Patient Care Team: Pcp, Heather as PCP - General (Family Medicine) Staff Present: Marksmanship Instructor, Medical Appliance Maker, Pharmacy, Speech Therapy, Physical/Occupational Therapy, Neurology Resident, and Stroke Sales Administrator Level of Care: Progressive Subacute recs; pending infectious workup. Cherie Peterson 11/25/24 10:32 AM * Progress Notes - Patricia Lee RN - 11/25/2024 9:51 AM EDT Case Management Adult Progress Note Michelle Felipe 74 y.o. female CSN: [id number] Admission: 11/20/2024 12:56 PM Primary Problem: Cerebrovascular accident (CVA) (CMS/HCC) Anticipated Discharge Date: TBD Has Discharge Plans Changed? No Medicare Second Notice: no Additional Comments: Chart reviewed and poc discussed in am huddle. Per provider pt is not medically ready pending infectious work. Pulm consulted 2/2 pleural effusion. Pt also pending PO tolerance/DHT removal. Pt has bed offer from [facility] that family accepted. Attempted to contact their admission coordinator Odilia. The front end engineer at facility reported that Odilia was not in yesterday and has not been in yet this am but she would notify her of acceptance and pt not ready. Will continue to follow. 10:20a - Rec'd call back from Odilia who confirms bed offer and will continue to follow. Patricia Lee RN billing auditor JESSI/Stroke * Care Plan - Luico Sheridan - 11/25/2024 2:35 AM EDT Problem: Adult Inpatient Plan of Care Goal: Plan of Care Review Outcome: Ongoing, Progressing Flowsheets Taken 11/25/2024 0232 by Lucio Sheridan Progress: improving Taken 11/22/2024 0154 by Nneka Curran RN Plan of Care Reviewed With: patient spouse Problem: Adult Inpatient Plan of Care Goal: Absence of Hospital-Acquired Illness or Injury Intervention: Identify and Manage Fall Risk Flowsheets (Taken 11/25/2024 0232) Safety Promotion/Fall Prevention: activity supervised clutter-free environment maintained * Care Plan - Marquita Hodges RN - 11/24/2024 6:53 PM EDT Problem: Adult Inpatient Plan of Care Goal: Patient-Specific Goal (Individualized) Outcome: Ongoing, Progressing Flowsheets (Taken 11/24/2024 0800) Patient/Family-Specific Goals (Include Timeframe): Pt will eat at least 50% of all of her meals during the shift Individualized Care Needs: Oral intake Anxieties, Fears or Concerns: None Goal: Optimal Comfort and Wellbeing Outcome: Ongoing, Progressing Intervention: Monitor Pain and Promote Comfort Flowsheets (Taken 11/24/2024 1835) Pain Management Interventions: care clustered Intervention: Provide Person-Centered Care Flowsheets (Taken 11/24/2024 1835) Trust Relationship/Rapport: care explained choices provided emotional support provided empathic listening provided questions answered questions encouraged reassurance provided Problem: Fall Injury Risk Goal: Absence of Fall and Fall-Related Injury Outcome: Ongoing, Progressing Intervention: Identify and Manage Contributors Flowsheets Taken 11/24/20241850 Self-Care Promotion: BADL personal objects within reach Taken 11/23/2024 0921 Medication Review/Management: medications reviewed Intervention: Promote Injury-Free Environment Flowsheets (Taken 11/24/2024 1800) Safety Promotion/Fall Prevention: safety round/check completed Problem: Stroke, Ischemic (Includes Transient Ischemic Attack) Goal: Optimal Coping Outcome: Ongoing, Progressing Intervention: Support Psychosocial Response to Stroke Flowsheets (Taken 11/23/2024 09) Supportive Measures: active listening utilized self-care encouraged verbalization of feelings encouraged Family/Support System Care: caregiver stress acknowledged self-care encouraged Goal: Optimal Cerebral Tissue Perfusion Outcome: Ongoing, Progressing Intervention: Protect and Optimize Cerebral Perfusion Flowsheets (Taken 11/23/2024 09) Sensory Stimulation Regulation: care clustered Cerebral Perfusion Promotion: blood pressure monitored Problem: Skin Injury Risk Increased Goal: Skin Health and Integrity Outcome: Ongoing, Progressing Intervention: Optimize Skin Protection Flowsheets Taken 11/24/20241850 Activity Management: activity adjusted per tolerance Taken 11/24/2024 1800 Head of Bed (HOB) Positioning: HOB elevated Intervention: Promote and Optimize Oral Intake Flowsheets (Taken 11/24/2024 185) Nutrition Interventions: diet adjusted Problem: Mobility Impairment Goal: Optimal Mobility Outcome: Ongoing, Progressing Intervention: Optimize Mobility Flowsheets (Taken 11/24/20241850) Activity Management: activity adjusted per tolerance Positioning/Transfer Devices: repositioning sheet pillows Problem: Swallowing Impairment Goal: Optimal Eating and Swallowing Outcome: Ongoing, Progressing Intervention: Optimize Eating and Swallowing Flowsheets (Taken 11/24/20241850) Nutrition Interventions: diet adjusted Swallowing Interventions: Dysphagia: food and liquid intake alternated Problem: Functional Deficit Goal: Optimal Cognitive Function Outcome: Ongoing, Progressing Intervention: Optimize Cognitive Function Flowsheets Taken 11/24/20241850 Environment Familiarity/Consistency: daily routine followed Self-Care Promotion: BADL personal objects within reach Taken 11/23/2024 0921 Sensory Stimulation Regulation: care clustered Problem: Self-Care Deficit Goal: Improved Ability to Complete Activities of Daily Living Outcome: Ongoing, Progressing Intervention: Promote Activity and Functional [place] Flowsheets (Taken 11/24/2024 1851) Self-Care Promotion: BADL personal objects within reach * Consults - Arlette Browning, - 11/24/2024 3:05 PM EDT PULMONARY CONSULT HPI: Michelle Felipe is a 74 y.o. female presenting with a past medical history of heart failure, lupus onCellCept and Plaquenil, AFib, prior LV thrombus and recurrent right effusion with multiple thoracentesis and chest tube but talc slurry pleurodesis on 08/19 24 that failed and was being considered for pleural peritoneal shunt. Patient was admitted on 11/20 with slurred speech and left facial droop. Pulmonology was consulted for concern for infection in the setting of pleural effusion. Review of Systems: GENERAL: denies diaphoresis EYES: no discharge from eyes HENT: denies trauma RESP: no hemoptysis. CARD: denies chest pain Extremities: no weakness GI: no abdominal pain SKIN: No rash, ulcers or subcutaneous nodules on exposed skin NEURO: denies syncope PSYCH: not hyperactive Last Recorded Vitals Blood pressure 105/62, pulse 60, temperature 37 ??C (98.6 ??F), resp. rate 18, height 1.626 m (5' 4.02 ), weight 53.4 kg (117 lb 11.6 oz), SpO2 98%. Physical Exam Constitutional: Appearance: She is not ill-appearing. HENT: Head: Normocephalic. Eyes: Pupils: Pupils are equal, round, and reactive to light. Cardiovascular: Rate and Rhythm: Normal rate and regular rhythm. Pulses: Normal pulses. Heart sounds: Normal heart sounds. Pulmonary: Effort: Pulmonary effort is normal. Breath sounds: Rhonchi present. Abdominal: Palpations: Abdomen is soft. Skin: Coloration: Skin is not jaundiced. Neurological: Mental Status: She is alert. Psychiatric: Mood and Affect: Mood normal. Results: Coags: INR Date Value Ref Range Status 11/24/2024 2.1 (H) 0.9 - 1.1 Final aPTT Date Value Ref Range Status 11/20/2024 37 (H) 25 - 35 sec Final CBC: WBC Count Date Value Ref Range Status 11/24/2024 14.95 (H) 3.70 - 10.30 10*3/uL Final HGB Date Value Ref Range Status 11/24/2024 11.8 11.2 - 15.7 g/dL Final HCT Date Value Ref Range Status 11/24/2024 36.7 34.0 - 45.0 % Final RBC Count Date Value Ref Range Status 11/24/2024 3.81 (L) 3.90 - 5.20 10*6/uL Final BMP: Sodium, Plasma Date Value Ref Range Status 11/24/2024 130 (L) 136 - 145 mmol/L Final Potassium, Plasma Date Value Ref Range Status 11/24/2024 3.6 3.6 - 4.9 mmol/L Final Chloride, Plasma Date Value Ref Range Status 11/24/2024 90 (L) 97 - 107 mmol/L Final BUN, Plasma Date Value Ref Range Status 11/24/2024 31 (H) 8 - 23 mg/dL Final CO2, Plasma Date Value Ref Range Status 11/24/2024 29 22 - 29 mmol/L Final Creatinine, Plasma Date Value Ref Range Status 11/24/2024 0.87 0.60 - 1.10 mg/dL Final Glucose, Plasma Date Value Ref Range Status 11/24/2024 232 (H) 74 - 99 mg/dL Final Imaging (past 24h): I personally visualized and interpreted all of the imaging studies below and I agree with formal interpretation. XR Chest 1 View Result Date: 11/24/2024 Interval placement of esophagogastric tube with tip terminating in the stomach. Otherwise unchangedagain. CRITICAL RESULT: No. COMMUNICATION: Per this written report. By electronically signing this report, I, the attending physician, attest that I have personally reviewed the images/data for the above examination(s) and agree with the final edited report. Drafted by Yemi Frederick MD on 11/24/2024 1:25 PM Final report signed by Dominic Mcconnell MD on 11/24/2024 1:54 PM Assessment/Plan Michelle Felipe is a 74 y.o. female presenting with a past medical history of heart failure, lupus onCellCept and Plaquenil, AFib, prior LV thrombus and recurrent right effusion with multiple thoracentesis and chest tube but talc slurry pleurodesis on 08/19 24 that failed and was being considered for pleural peritoneal shunt. Patient was admitted on 11/20 with slurred speech and left facial droop. Pulmonology was consulted for concern for infection in the setting of pleural effusion. Acute on chronic hypoxic respiratory failure 2/2 recurrent pleural effusion s/p R sided thoracentesis (09/11/24) - chest CT with contrast for better visualization of effusion to assess for complicated pathology - primary team to do full infectious work up - if patient does need a procedure she is high risk due to failed Pleurodesis, may need to involve Interventional Pulmonology, if a procedure is indicated. Another complicating factor is need for warfarin due to history of thrombus, may need to consult cardiology for holding, unclear at this time, need further diagnostic workup. Thank you for allowing Pulmonary to participate in the care of this patient. This patient was staffed with Dr. Adamson as the attending physician. Arlette Browning DO PGY-1 Department of Anesthesiology, Critical Care & Pain Medicine Cosigned by Micky Adamson MD at 11/24/2024 6:16 PM EDT Associated attestation - Micky dAamson MD - 11/24/2024 6:16 PM EDT I saw and evaluated the patient with the resident/fellow. I discussed the case with the resident/fellow and agree with the findings and plan as documented. * Progress Notes - Floresita Karimi [facility]INSULATOR CUTTER AND FORMER - 11/24/2024 2:13 PM EDT Speech Language Pathology TREATMENT NOTE Patient Name: Michelle Felipe Age: 74 y.o. Today's Date: 11/24/2024 INSULATOR CUTTER AND FORMER Treatment Area(s): Swallow Treatment Time Dysphagia: 25 minutes Subjective Pt received asleep but remained participatory once awake. Pt displayed difficulty following multi-step directions. Pt's reports that she has eaten 2 meals today. Pt reports that she was givenorange juice w/o thickener this morning and premade nectar thick liquids were found in pt's room. Team informed. Family/caregiver present: Objective Current diet: Dietary Orders (From admission, onward) Start Ordered 11/23/24 1637 Adult diet Diet texture: Easy to Chew 7; Fluid consistency: Moderately Thick 3 (Honey) Diet effective now References: IDDSI Diet Texture Guide Question Answer Comment Diet texture Easy to Chew 7 Fluid consistency Moderately Thick 3 (Honey) 11/23/24 1636 11/21/24 1802 Tube Feeding Tube feeding formula: Diabetisource AC; Route of feeding: Nasogastric; Tube feeding schedule: Continuous; Tube feeding continous initial Rate (ml/hr): 20; Advance by (ml): 10; Advance every (hr): 4; Tube feeding continuous goal rate (... Diet effective now Question Answer Comment Tube feeding formula: Diabetisource AC Route of feeding: Nasogastric Tube feeding schedule: Continuous Tube feeding continous initial Rate (ml/hr): 20 Advance by (ml): 10 Advance every (hr): 4 Tube feeding continuous goal rate (mL/hr): 45 Tube feeding continuous frequency: Continuous Tube feeding flush (ml): 150 Flush type: Water Flush frequency: Every 4 hours 11/21/24 180 Alternate means of nutrition present: dobhoff tube Respiratory status: NC + 2 L 3-second prep for improved swallow initiation 5 repetitions w/ puree + pudding Effortful Swallow 4 repetitions with softened guillermina cracker EMST via PEEP Valve 5 cm H2O 5 sets of 5 Assessment Pt received verbal cue for 3-second prep once bolus manipulation appeared to cease. Pt benefited from verbal cues to swallow hard prior to each effortful swallow. Pt reminded to collect a cohesive bolus prior to effortful swallow. Pt benefited from scaffolding of EMST breathing pattern w/o PEEP valve before successfully completing sets on PEEP valve. She was instructed to complete 5 sets of 5 on the PEEP valve as able until the next session. Prognosis: Good for improved function with skilled speech pathology services focusing on stated goals. Patient Education was provided via verbal instruction to patient re: POC . Will continue to provideeducation in subsequent sessions as warranted. Plan / Recommendations Diet recommendations: IDDSI 7 easy to chew (no mixed consistencies), IDDSI 3 moderately thick liquids via SINGLE cup/straw SIP, meds whole in puree/pudding. Instrumental Swallowing Exam Recommendations: Repeat MBS in ~5-7 days Goals - Complete dysphagia exercises to improve swallow initiation, laryngeal elevation/excursion, LVC - EMST to improve cough strength * Progress Notes - Yakelin Pa MBBS - 11/24/2024 12:34 PM EDT Stroke [place] Progress Note Subjective Patient had a fever spike of 102.5 F overnight that resolved with tylenol. She denies chest pain, shortness of air or cough. was concerned as she appears more somnolent today. Discussed plan to consult pulmonology regarding thoracentesis given signs of infection including fever, increased white count, hypotension, pleural effusion on latest CXR. Objective Visit Vitals BP 105/62 Pulse 60 Temp 37 ??C (98.6 ??F) SpO2 98% Physical exam Mental Status: A&O x 3, somnolent Speech: mild dysarthria, Fluent language Cortical: No Extinction CN: II - PERRLA, VF full III, IV, - EOMI V - Facial sensation intact VII - flattening of left nasolabial fold VIII - Auditory acuity intact RUE: 4-/5 strength LUE: 4-/5 strength RLE:4-/5 strength LLE: 4-/5 strength Sensory: Sensation to light touch in all four extremities intact and symmetric. Coordination: No limb ataxia with [id number] or fauy-ly-faxi. Gait: Deferred Labs Lab values interpreted and personally reviewed, notable for WBC 14.95, procalcitonin elevated CBC WBC 14.95 (H) Hb 11.8 Plt 378 (H) Hct 36.7 ANC 13.45 (H) INR 2.1 (H), PTT ??, Anti-Xa ?? BMP Na 130 (L) Cl 90 (L) BUN 31 (H) Glu 232 (H) K 3.6 Co2 29 Cr 0.87 Ca 8.8 (L) iCa ?? Mg ??, Phos ?? Lactate ?? LFT AST 34 AlkPhos 126 T Prot 7.0 ALK 18 Bili 0.5 Alb ?? Imaging No neuroimaging today. Assessment/Plan 74 y.o. female with hx of chronic LV thrombus and atrial fibrillation on warfarin, prior stroke with no residual deficit, hypertension, diabetes, hyperlipidemia, hypothyroidism, chronic hypoxic respiratory failure on 2 L nasal cannula at home, HFpEF, SLE , presented with slurred speech and left facial. LKN: 1145 on 11/20. Admit NIHSS: 2 Dx - Right AIS possibly subcortical no TPA/EVT [facility] - Cardioembolic # Acute ischemic stroke in the right temporal lobe # Cerebral edema with brain compression # Dysarthria and left facial droop # Impaired functional activities due to stroke (POA) # limitation of activities due to disability from stroke # History of Afib # History of LV thrombus -Mechanism: Cardioembolic given the history of atrial fibrillation -LKN: 11:45 a.m. on 11/20/2024 -Risk Factors: Hypertension, diabetes, hyperlipidemia, atrial fibrillation, chronic LV thrombus -Total NIHSS Score: 2 -CT Head demonstrated showed no acute intracranial abnormality. 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 - CTH repeat on 11/22 AM shows ischemic infarct in temporal lobe on right. -Thrombolytics not given due to history of anticoagulant use in the last 24 hours -Thrombectomy not performed due to no LVO Plan -Echo: LVEF 44%, septal motion consistent with conduction abnormality; no visible left ventricular thrombus -BP goals: <160 -Na goals: Normal -EKG: ventricular paced rhythm -Secondary stroke prophylaxis: Atorvastatin 40 mg, restart warfarin, stopped aspririn -PT/OT- pending -INSULATOR CUTTER AND FORMER: sandrita feed advised -Neuro checks and NIHSS per protocol -Continuous telemetry monitoring -mMoCA and PHQ-9 at discharge Seizure: - concerns for seizure with history at home before weakness and slurring of speech from daughter - routine EEG to be done today - no active seizure now Acute on chronic hypoxic respiratory failure 2/2 recurrent pleural effusion s/p R sided thoracentesis (09/11/24) - on home oxygen - h/o prior pleurodesis per daughter - 11/22 consulted pulmonology for pleural tapping/ pleurodesis- hold off iso no signs of infection - 11/24 reconsulted pulmonology for thoracentesis- recommended CT chest w contrast along with blood,urine and sputum cultures for further evaluation given signs of infection - procalcitonin labs ordered to guide antibiotic therapy decision if bacterial Acute on chronic HFpEF - Continue home oxygen 2L - Not significantly volume overloaded on exam although does have some pedal edema - home furosemide, metoprolol restarted Hypothyroidsim - Restarted Levothyroxine 125 mcg DM - Started SSI and hypoglycemia monitoring SLE -follows with [facility], on plaquenil and mycophenolate -has c/o painful mouth sores and sores along her elbow and hand small joint along with possible dactylitis -takes Hydroxychloroquine at home, restarted Chronic medical conditions: - Chronic Neuropathic pain: Gabapentin and Duloxetine. Resumed home meds F: DHT E: Replace PRN N: DHT DVT ppx: pLOV Discharge Recommendation: Subacute rehab Full Code SHANA Triana PGY-1 Neurology Cosigned by Cirilo Majano MD at 11/24/2024 4:45 PM EDT Associated attestation - Cirilo Majano MD - 11/24/2024 4:45 PM EDT I saw and evaluated the patient with the resident/fellow. I discussed the case with the resident/fellow and agree with the findings and plan as documented. * Progress Notes - Bonny Cancino, PharmD - 11/24/2024 12:12 PM EDT Antithrombosis Monitoring: Warfarin Michelle Felipe is a 74 y.o. female who has been continued on warfarin for LV thrombus. Warfarin Indication & Goal Anticoagulation Indication/Goal Warfarin Indication: Left Ventricular Thrombus;Atrial fibrillation Reason DOAC not prescribed: Failure on Alternate Therapy Duration of Anticoagulation: Indefinite Target INR: 2-3 Warfarin Prior to Admission: Yes Prior to Admission Daily Warfarin Regimen: Warfarin 5mg daily + 7.5mg on Friday Prior to Admission Weekly Warfarin Dose: 37.5mg Assessment Anticoagulation Assessment Warfarin Sensitivity Score: High (1 or more Warfarin Sensitivity Risk Factors) Nutritional Intake: Minimal PO intake Today's INR : Therapeutic Warfarin INR & Dose Trends Date INR Warfarin Dose (mg) Comments 11/20 2.5 11/21 5 mg (not given) DHT clogged, unable to give medication 11/22 1.6 5mg 11/23 1.8 4mg 11/24 2.1 4mg Plan Anticoagulation Plan Warfarin Pharmacist Managed?: Yes Warfarin Plan: Continue current dose Specify Warfarin Dose: Warfarin 4mg [facility] Warfarin Dosing Protocol Followed?: Yes Bridging Agent in Conjunction With Warfarin? : No INR Monitoring Frequency: Monitor INR daily Patient Education : Incomplete Will continue to follow patient's clinical progress daily. Bonny Cancino PharmD 11/24/2024 12:10 PM * Progress Notes - Katerina Conroy - 11/24/2024 12:03 PM EDT OCCUPATIONAL THERAPY TREATMENT PATIENT DATA Patient Name Michelle Felipe Session Date 11/24/2024 OT Discharge Recommendations Subacute rehab Equipment Recommendations Defer to facility Transportation Recommendations Family car MOBILITY GUIDELINES Activity: Stroke Stroke Guidelines: General - No Restrictions. NOT receving tPA Extremity Precautions: No Extremity Precautions Other mobility precautions: No other precautions required PRECAUTIONS Medical Precautions Medical Precautions: Fall precautions Medical Precautions: SBP less than 180 PRESENTATION Oxygen Supplemental oxygen Nasal cannula 2 L/min Telemetry Yes Lines and Tubes Female External Urinary Catheter 11/22/24 8505 (Active) Feeding Tube Gastric 10 Fr. Right nare (Active) Peripheral IV 11/22/24 Left;Anterior;Lower Forearm (Active) Pre-Session Supine, Head of bed elevated, Lines intact, Bed alarm Post-Session Sitting in chair, Chair alarm, RN notified, Call light in reach, Lines intact Bracing (if applicable) SUBJECTIVE PARTICIPANTS IN CARE Patient/Caregiver Comments Pt agreeable to OT session. Visitors Present Yes Spouse Program Professional (if applicable) OBJECTIVE PAIN Pt with no complaints of pain. DELIRIUM SCREENING RASS: Alert and calm Confusion Assessment Method-ICU (CAM-ICU/PCAM-ICU) Feature 3: Altered Level of Consciousness: Negative COGNITION SCREENING Overall Cognitive Status Arousal/Alertness Mood/Behavior Orientation Oriented X4 Command Following Method of Communication Additional Observations BED MOBILITY Level of [place] Physical/Non-physical Assist Adaptive Equipment Utilized Rolling/ Turning Scooting/ Bridging Moderate assist (50% patient's effort) (to EOB) Set-up required, Minimal cues, Nonverbal cues (demo/gestures), Verbal Cues Supine to Sit Minimum assist (75% patient's effort) (to L EOB) Nonverbal cues (demo/gestures), Verbal Cues, Minimal cues, Additional assist utilized for safety Sit to Supine TRANSFERS Level of [place] Physical/Non- physical Assist Adaptive Equipment Utilized Sit to Stand Minimum assist (75% patient's effort) Additional assist utilized for safety, Minimal cues, Nonverbal cues (demo/gestures), Verbal Cues Hand held assist Stand to sit Minimum assist (75% patient's effort) Additional assist utilized for safety, Verbal Cues, Nonverbal cues (demo/gestures), Minimal cues Hand held assist Bed to Chair Moderate assist (50% patient's effort) (forward steps x5') Additional assist utilized for safety, Verbal Cues, Nonverbal cues (demo/gestures), Minimal cues Toilet Transfer Shower Transfer INTERVENTIONS SELF-CARE Treatment Minutes (if applicable) 24 Comments Level of [place] Adaptive Equipment Utilized Interventions Feeding Standby assist, Setup, Minimum assistance Pt attempted to feed self while supine with HOB elevated. Pt had difficulty loading food onto spoon, however once positioned sitting EOB pt able to feed self with only SBA/setup. At end of session OT assisted with spooning orange juice to pt.'s mouth to clear food. Increased time complete feeding. Grooming Bathing Upper Body Dressing Lower Body Dressing Sock Level of Assistance: Dependent Pt required dep A to don socks while supine bed level. Toileting Moderate assistance Pt completed simulated toilet transfer with mod A (bed to chair steps) due to balance and general weakness. [facility] Re-Entry ASSESSMENT Pt tolerated treatment session well without adverse effects, noted to have vital signs stable throughout. Pt continues to improve, however requires mostly min to mod A for transfers and side steps tochair. Improvement in self-feeding when upright to promote alertness and attention to task. Pt would be unable to access a bathroom, unable to enter/exit a home and unable to manage their own medicati ons correctly to prevent readmission. Pt requires assistance in all aspects of transfers, mobility and self-care tasks. In addition, pt is at a high risk of falls and would be unable to take care of self independently at this time. Pt is most appropriate for subacute rehab at this time. Pt would beable to participate in 1-2 hours/day of therapy with good potential for progress in functional and/o r modified independence. OT RECOMMENDATIONS Discharge Destination Subacute rehab Discharge Equipment Defer to facility PLAN Continue with OT POC, 2-5x/wk OT GOALS OT GOAL DETAILS Goal Established Date Time Frame Goal Status OT Goal 1: Pt. will perform UE dressing with min A sitting edge of bed. 11/22/24 2 weeks OT Goal 2: Pt. will perform toilet transfers with min A. 11/22/24 2 weeks OT Goal 3: Pt. will perform grooming sitting edge of bed with SBA. 11/22/24 2 weeks Written by Katerina Conroy on 11/24/24 at 12:07 PM. * Progress Notes - Carlo Solano - 11/24/2024 12:02 PM EDT Physical Therapy Treatment Patient Name: Michelle Felipe Today's Date: 11/24/2024 PT Discharge Recommendations: Subacute rehab Equipment Recommended: Defer to facility SUBJECTIVE Pt/spouse eager for pt to participate with PT and asked when PT will be back. Participants in Care Family/Caregiver Present: Yes Family/Caregiver: Spouse Program Professional: Not Applicable PRESENTATION Oxygen Supplemental oxygen Nasal cannula 2 L/min Lines and Tubes Female External Urinary Catheter 11/22/24 9303 (Active) Feeding Tube Gastric 10 Fr. Right nare (Active) Peripheral IV 11/22/24 Left;Anterior;Lower Forearm (Active) Pre-Session Supine, Head of bed elevated, Lines intact, Bed alarm Post-Session Sitting in chair, Chair alarm, RN notified, Call light in reach, Lines intact Precautions Medical Precautions: Fall precautions Medical Precautions: SBP less than 180 OBJECTIVE Pain No report of pain Delirium Screening RASS: Alert and calm Confusion Assessment Method-ICU (CAM-ICU/PCAM-ICU) Feature 3: Altered Level of Consciousness: Negative INTERVENTIONS THERAPEUTIC ACTIVITY Treatment Minutes 24 Interventions Therapist facilitated bed mobility training, transfer training, and balance training to improve upright activity tolerance, endurance, strength, and functional mobility. Refer to specific sections for further detail on specific interventions performed. BED MOBILITY Interventions Verbal/tactile cues to initiate, facilitate, and sequence to L EOB. Level of [place] Physical/Non- physical Assist Adaptive Equipment Utilized Rolling/ Turning Scooting/ Bridging Moderate assist (50% patient's effort) (to EOB) Set-up required, Minimal cues, Nonverbal cues (demo/gestures), Verbal Cues Supine to Sit Minimum assist (75% patient's effort) (to L EOB) Nonverbal cues (demo/gestures), Verbal Cues, Minimal cues, Additional assist utilized for safety Sit to Supine TRANSFERS Interventions BUE HEAD WOOD GRINDER for balance/safety and tactile cue for eccentric control to sit. Level of [place] Physical/Non- physical Assist Adaptive Equipment Utilized Sit to Stand Minimum assist (75% patient's effort) Additional assist utilized for safety, Minimal cues, Nonverbal cues (demo/gestures), Verbal Cues Hand held assist Stand to sit Minimum assist (75% patient's effort) Additional assist utilized for safety, Verbal Cues, Nonverbal cues (demo/gestures), Minimal cues Hand held assist Bed to Chair Moderate assist (50% patient's effort) (forward steps x5') Additional assist utilized for safety, Verbal Cues, Nonverbal cues (demo/gestures), Minimal cues Toilet Transfer Shower Transfer BALANCE Postural Appearance Posture: Within Functional Limits Pt sat edge of bed in attempt to increase trunk strength, tolerance to upright activity, and sitting balance for participation in upright activities. PT provided verbal/tactile cues for balance/safety. Level of [place] Balance Support Interventions Static Sit Contact guard Feet unsupported Dynamic Sit Minimum assistance Feet unsupported Dynamic Sitting-Balance: Reaching for objects, Anterior/Posterior weight shifts, Lateral weight shifts Static Stand Minimum assistance Left upper extremity support, Right upper extremity support Dynamic Stand Moderate assistance Right upper extremity support, Left upper extremity support Lateral weight shifts, Anterior/Posterior weight shifts, Reaching for objects ASSESSMENT Pt tolerated session without adverse effects. Pt requiring similar assist with bed mobility, transfers, and gait training. Pt continues to require PT assist for mobility 2/2 fall risk and the following impairments: strength, balance, activity tolerance/endurance, and cognition. Pt will continue to benefit from skilled physical therapy to reduce fall risk, reduce burden of care, and to optimize post stroke IND with mobility and ADLs. PT Recommendations Discharge Destination: Subacute rehab Discharge Equipment: Defer to facility PLAN Continue with established PT plan of care 2 - 5 times per week to progress towards PT goals. PT GOALS PT GOAL DETAILS Goal Established Date Time Frame Goal Status PT Goal 1: Patient will perform supine to and from sit with CGA. 11/22/24 2 weeks PT Goal 2: Patient will perform sit to and from stand with RW or AAD with CGA. 11/22/24 2 weeks PT Goal 3: Patient will walk 40 feet with RW on level surfaces with CGA. 11/22/24 2 weeks PT Goal 4: Patient and family will participate in discharge planning to include family teaching, referrals, equipment ordering and HEP. 11/22/24 2 weeks Written by Carlo Solano on 11/24/24 at 12:05 PM. * Nursing Note - Bhumika Borja RN - 11/24/2024 11:03 AM EDT Stroke Team Interdisciplinary Transition of Care Huddle (STIMAIDA) Patient: Michelle Ag Care Team: Patient Care Team: Pcp, No as PCP - General (Family Medicine) Staff Present: Marksmanship Instructor, Pharmacy, Speech Therapy, Physical/Occupational Therapy, Neurology Resident, and Stroke Sales Administrator Level of Care: Progressive Status: stable Has subacute recs, fever overnight, pending work up, still a possible discharge tomorrow to [facility] in [place]. Bhumika Borja RN 11/24/24 11:03 AM * Progress Notes - Patricia Lee RN - 11/24/2024 10:44 AM EDT Case Management Adult Progress Note Michelle Felipe 74 y.o. female CSN: [id number] Admission: 11/20/2024 12:56 PM Primary Problem: Cerebrovascular accident (CVA) (CMS/[facility]) Additional Comments: Attempted to f/up with Odilia in admissions @ [facility] regarding bed offer and precert this am both via Careport messaging and by phone - no response at this time; vm wasalso left. Provider reports pt had a fever overnight - work up pending but still anticipated to be ready in 1-2d. May need antibx pending test results. Will continue to follow. Patricia Lee RN billing auditor JESSI/Stroke * Care Plan - Hoda Smith RN - 11/24/2024 5:33 AM EDT Problem: Adult Inpatient Plan of Care Goal: Patient-Specific Goal (Individualized) Flowsheets (Taken 11/24/2024 0400) Patient/Family-Specific Goals (Include Timeframe): pt to remain free of falls Individualized Care Needs: safety Anxieties, Fears or Concerns: none Goal: Absence of Hospital-Acquired Illness or Injury Intervention: Identify and Manage Fall Risk Flowsheets (Taken 11/23/2024 2300 by Niranjan Cardona CNA) Safety Promotion/Fall Prevention: activity supervised Intervention: Prevent Skin Injury Flowsheets Taken 11/24/2024 0400 by Hoda Smith RN Body Position: turned Taken 11/22/2024 1329 by Marcelina Chamberlain RN Skin Protection: other (see comments) Intervention: Prevent and Manage VTE (Venous Thromboembolism) Risk Flowsheets (Taken 11/23/2024 0600 by Nneka Curran RN) VTE Prevention/Management: bilateral SCDs (sequential compression devices) on Intervention: Prevent Infection Flowsheets (Taken 11/22/2024 0154 by Nneka Curran RN) Infection Prevention: cohorting utilized environmental surveillance performed equipment surfaces disinfected hand hygiene promoted rest/sleep promoted single patient room provided Goal: Optimal Comfort and Wellbeing Intervention: Monitor Pain and Promote Comfort Flowsheets (Taken 11/21/2024 1027 by Lynn Mack RN) Pain Management Interventions: care clustered quiet environment facilitated position adjusted Intervention: Provide Person-Centered Care Flowsheets (Taken 11/22/2024 0154 by Nneka Curran RN) Trust Relationship/Rapport: care explained questions encouraged thoughts/feelings acknowledged Problem: Fall Injury Risk Goal: Absence of Fall and Fall-Related Injury Intervention: Identify and Manage Contributors Flowsheets (Taken 11/23/2024920 by Marquita Hodges, EVITA) Medication Review/Management: medications reviewed Self-Care Promotion: BADL personal objects within reach Intervention: Promote Injury-Free Environment Flowsheets (Taken 11/23/2024 2300 by Niranjan Cardona CNA) Safety Promotion/Fall Prevention: activity supervised Problem: Stroke, Ischemic (Includes Transient Ischemic Attack) Goal: Optimal Coping Intervention: Support Psychosocial Response to Stroke Flowsheets (Taken 11/23/2024920 by Marquita Hodges, EVITA) Supportive Measures: active listening utilized self-care encouraged verbalization of feelings encouraged Family/Support System Care: caregiver stress acknowledged self-care encouraged Goal: Effective Bowel Elimination Intervention: Promote Effective Bowel Elimination Flowsheets (Taken 11/22/2024153 by Nneka Curran RN) Bowel Elimination Management: hygiene measures promoted relaxation techniques promoted Bowel Program: maintenance program followed Goal: Optimal Cerebral Tissue Perfusion Intervention: Protect and Optimize Cerebral Perfusion Flowsheets Taken 11/23/2024920 by Marquita Hodges RN Sensory Stimulation Regulation: care clustered Cerebral Perfusion Promotion: blood pressure monitored Taken 11/20/20242146 by Tosha Sims RN Stabilization Measures: provider notified Fluid/Electrolyte Management: intravenous fluids adjusted Goal: Optimal Cognitive Function Intervention: Optimize Cognitive Function Flowsheets Taken 11/23/2024920 by Marquita Hodges RN Sensory Stimulation Regulation: care clustered Taken 11/22/2024153 by Nneka Curran RN Reorientation Measures: clock in view Environment Familiarity/Consistency: familiar objects from home provided Goal: Improved Communication Skills Intervention: Optimize Communication Skills Flowsheets (Taken 11/22/2024 015 by Nneka Curran RN) Communication Enhancement Strategies: call light answered in person Goal: Optimal Functional Ability Intervention: Optimize Functional Ability Flowsheets Taken 11/24/2024 0530 by Hoda Smith, RN Adaptive Equipment Use: used with assistance Taken 11/24/2024 0400 by Hoda Smith, RN Activity Management: activity adjusted per tolerance Taken 11/23/2024920 by Marquita Hodges RN Self-Care Promotion: BADL personal objects within reach Goal: Optimal Nutrition Intake Intervention: Promote and Optimize Fluid and Food Intake Flowsheets Taken 11/24/2024 0530 by Hoda Smith RN Oral Nutrition Promotion: adaptive equipment use encouraged Taken 11/22/2024 015 by Nneka Curran RN Nutrition Interventions: diet adjusted Goal: Effective Oxygenation and Ventilation Intervention: Optimize Oxygenation and Ventilation Flowsheets Taken 11/24/2024 0400 by Hoda Smith RN Head of Bed (HOB) Positioning: HOB elevated Taken 11/22/2024 015 by Nneka Curran RN Airway/Ventilation Management: airway patency maintained Goal: Improved Sensorimotor Function Intervention: Optimize Range of Motion, Motor Control and Function Flowsheets Taken 11/24/2024 05 by Hoda Smith RN Positioning: Shoulder: safety cues provided Taken 11/23/2024 0600 by Nneka Curran RN Range of Motion: active ROM (range of motion) encouraged Taken 11/22/2024 015 by Nneka Curran RN Spasticity Management: positioned with supportive device Positioning/Transfer Devices: repositioning sheet pillows Intervention: Optimize Sensory and Perceptual Ability Flowsheets Taken 11/23/2024 0921 by Marquita Hodges RN Pressure Reduction Techniques: weight shift assistance provided Sensation Impairment Protection: cues provided for safety Taken 11/22/2024 1329 by Marcelina Chamberlain RN Pressure Reduction Devices: positioning supports utilized feet on footrest/footstool Goal: Safe and Effective Swallow Intervention: Optimize Eating and Swallowing Flowsheets Taken 11/24/2024 05 by Hoda Smith RN Swallowing Method: chin tuck double swallow encouraged Feeding/Eating Techniques: adaptive equipment/utensils utilized close supervision provided Taken 11/23/2024 0921 by Marquita Hodges RN Aspiration Precautions: NPO pending swallow screening/evaluation Taken 11/20/20242146 by Tosha Sims RN Swallowing Interventions: Dysphagia: food and liquid intake alternated Goal: Effective Urinary Elimination Intervention: Promote Effective Bladder Elimination Flowsheets (Taken 11/22/2024 015 by Nneka Curran RN) Urinary Elimination Promotion: absorbent pad/diaper use encouraged frequent voiding encouraged positioned for ease of voiding Problem: Skin Injury Risk Increased Goal: Skin Health and Integrity Intervention: Optimize Skin Protection Flowsheets Taken 11/24/2024 0400 by Hoda Smith RN Activity Management: activity adjusted per tolerance Head of Bed (HOB) Positioning: HOB elevated Taken 11/23/2024 09 by Marquita Hodges RN Pressure Reduction Techniques: weight shift assistance provided Taken 11/22/2024 1329 by Marcelina Chamberlain RN Pressure Reduction Devices: positioning supports utilized feet on footrest/footstool Skin Protection: other (see comments) Intervention: Promote and Optimize Oral Intake Flowsheets Taken 11/24/2024 0530 by Hoda Smith RN Oral Nutrition Promotion: adaptive equipment use encouraged Taken 11/22/2024 015 by Nneka Curran RN Nutrition Interventions: diet adjusted Problem: Mobility Impairment Goal: Optimal Mobility Intervention: Optimize Mobility Flowsheets Taken 11/24/2024 0400 by Hoda Smith RN Activity Management: activity adjusted per tolerance Taken 11/22/2024 0154 by Nneka Curran RN Positioning/Transfer Devices: repositioning sheet pillows Problem: Swallowing Impairment Goal: Optimal Eating and Swallowing Intervention: Optimize Eating and Swallowing Flowsheets Taken 11/24/2024 0530 by Hoda Smith RN Swallowing Method: chin tuck double swallow encouraged Taken 11/23/2024920 by Marquita Hodges RN Aspiration Precautions: NPO pending swallow screening/evaluation Taken 11/22/2024 015 by Nneka Curran RN Nutrition Interventions: diet adjusted Taken 11/20/20247 by Tosha Sims RN Swallowing Interventions: Dysphagia: food and liquid intake alternated Problem: Functional Deficit Goal: Improved Balance and Postural Control Intervention: Optimize Balance and Safe Activity Flowsheets Taken 11/24/2024 0530 by Hoda Smith RN Adaptive Equipment Use: used with assistance Taken 11/24/2024 0400 by Hoda Smith RN Activity Management: activity adjusted per tolerance Taken 11/23/2024 2300 by Niranjan Cardona CNA Safety Promotion/Fall Prevention: activity supervised Taken 11/23/2024920 by Marquita Hodges RN Self-Care Promotion: BADL personal objects within reach Goal: Optimal Cognitive Function Intervention: Optimize Cognitive Function Flowsheets Taken 11/23/2024 09 by Marquita Hodges RN Sensory Stimulation Regulation: care clustered Self-Care Promotion: BADL personal objects within reach Taken 11/22/2024 0154 by Nneka Curran RN Environment Familiarity/Consistency: familiar objects from home provided Goal: Compensation for Sensory Deficit Intervention: Optimize Sensory Function Flowsheets Taken 11/23/2024 0921 by Marquita Hodges RN Pressure Reduction Techniques: weight shift assistance provided Sensation Impairment Protection: cues provided for safety Taken 11/22/2024 1329 by Marcelina Chamberlain RN Skin Protection: other (see comments) * Progress Notes - Yakelin Pa MBBS - 11/23/2024 4:49 PM EDT Stroke [place] Progress Note Subjective NAEON. Denies shortness of breath, chest and abdominal pain. Objective Visit Vitals BP (!) 148/56 Pulse 61 Temp 36.6 ??C (97.9 ??F) SpO2 100% Physical exam Neurological: Mental Status: A&O x 3, interactive, able to follow commands Speech: mild dysarthria, Fluent language Cortical: No Extinction CN: II - PERRLA, VF full III, IV, - EOMI V - Facial sensation intact VII - flattening of left nasolabial fold VIII - Auditory acuity intact RUE: 4-/5 strength LUE: 4-/5 strength RLE:4-/5 strength LLE: 4-/5 strength Sensory: Sensation to light touch in all four extremities intact and symmetric. Coordination: No limb ataxia with [id number] or [id number]. Gait: Deferred Labs Lab values interpreted and personally reviewed, notable for CBC WBC 9.00 Hb 11.5 Plt 321 Hct 35.7 ANC 6.95 (H) INR 1.8 (H), PTT ??, Anti-Xa ?? BMP Na 137 Cl 95 (L) BUN 39 (H) Glu 159 (H) K 4.0 Co2 30 (H) Cr 1.00 Ca 8.8 (L) iCa ?? Mg ??, Phos ?? Lactate ?? LFT AST 42 (H) AlkPhos 117 T Prot 6.4 ALK 20 Bili 0.4 Alb ?? D.Bili ?? Imaging No new neuroimaging today. Assessment/Plan 74 y.o. female with hx of chronic LV thrombus and atrial fibrillation on warfarin, prior stroke with no residual deficit, hypertension, diabetes, hyperlipidemia, hypothyroidism, chronic hypoxic respiratory failure on 2 L nasal cannula at home, HFpEF, SLE , presented with slurred speech and left facial. LKN: 1145 on 11/20. Admit NIHSS: 2 Dx - Right AIS possibly subcortical no TPA/EVT [facility] - Cardioembolic # Acute ischemic stroke in the right temporal lobe # Cerebral edema with brain compression # Dysarthria and left facial droop # Impaired functional activities due to stroke (POA) # limitation of activities due to disability from stroke # History of Afib # history of LV thrombus -Mechanism: Cardioembolic given the history of atrial fibrillation -LKN: 11:45 a.m. on 11/20/2024 -Risk Factors: Hypertension, diabetes, hyperlipidemia, atrial fibrillation, chronic LV thrombus -Total NIHSS Score: 2 -CT Head demonstrated showed no acute intracranial abnormality. 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 - CTH repeat on 11/22 AM shows ischemic infarct in temporal lobe on right. -Thrombolytics not given due to history of anticoagulant use in the last 24 hours -Thrombectomy not performed due to no LVO Plan -Echo: LVEF 44%, septal motion consistent with conduction abnormality; no visible left ventricular thrombus -BP goals: <160 -Na goals: Normal -EKG: ventricular paced rhythm -Secondary stroke prophylaxis: Atorvastatin 40 mg, restart warfarin, stopped aspririn -PT/OT- pending - INSULATOR CUTTER AND FORMER: dht feed advised -Neuro checks and NIHSS per protocol -Continuous telemetry monitoring -MMoCA and PHQ-9 at discharge Seizure: - concerns for seizure with history at home before weakness and slurring of speech from daughter - routine EEG to be done today - no active seizure now Acute on chronic hypoxic respiratory failure 2/2 recurrent pleural effusion s/p R sided thoracentesis (09/11/24) - on home oxygen - h/o prior pleurodesis per daughter - consulted pulmonology for pleural tapping/ pleurodesis- holding off as of now Acute on chronic HFpEF - Continue home oxygen 2L - Not significantly volume overloaded on exam although does have some pedal edema - home furosemide, metoprolol restarted Hypothyroidsim - Restarted Levothyroxine 125 mcg DM - Started SSI and hypoglycemia monitoring SLE -follows with [facility], on plaquenil and mycophenolate -has c/o painful mouth sores and sores along her elbow and hand small joint along with possible dactylitis -takes Hydroxychloroquine at home, restarted Chronic medical conditions: - Chronic Neuropathic pain: Gabapentin and Duloxetine. Resumed home meds F: DHT E: Replace PRN N: DHT DVT ppx: pLOV Discharge Recommendation: Subacute rehab Full Code SHANA [place] PGY-1 Neurology Cosigned by Cirilo Majano MD at 11/23/2024 8:28 PM EDT Associated attestation - Cirilo Majano MD - 11/23/2024 8:28 PM EDT I saw and evaluated the patient with the resident/fellow. I discussed the case with the resident/fellow and agree with the findings and plan as documented. * Progress Notes - Patricia Lee RN - 11/23/2024 2:39 PM EDT Case Management Adult Progress Note Michelle Felipe 74 y.o. female CSN: [id number] Admission: 11/20/2024 12:56 PM Primary Problem: Cerebrovascular accident (CVA) (CMS/HCC) Anticipated Discharge Date: 1-2 days Has Discharge Plans Changed? No Medicare Second Notice: no Additional Comments: MBS completed w/recs for easy to chew. Contacted pt's do discuss facility options. He requested I speak with daughter. Contacted Daughter Ruthie to inform of bed offers. Agreeable to accept bed at [facility]. Sent message to Odilia @ [facility] via [employer] to provide update and request precert. Also,attempted to update via phone - no answer, vm left. Patricia Lee, RN billing auditor JESSI/Stroke * Progress Notes - Floresita Karimi, CCC-INSULATOR CUTTER AND FORMER - 11/23/2024 1:48 PM EDT Speech Language Pathology INITIAL MODIFIED BARIUM SWALLOW STUDY Patient Name: Michelle Felipe Age: 74 y.o. Today's Date: 11/23/2024 Recommendations: IDDSI 7 easy to chew (no mixed consistencies), IDDSI 3 moderately thick liquids via SINGLE cup/straw SIP, meds whole in puree/pudding. Dysphagia tx. Repeat MBS in ~5-7 days. History Medical History: 74 y.o. female with PMH of chronic LV thrombus and atrial fibrillation on warfarin, prior stroke with no residual deficit, hypertension, diabetes, hyperlipidemia, hypothyroidism, chronic hypoxic respiratory failure on 2 L nasal cannula at home, HFpEF, SLE. Stroke neurology was consulted as a stroke alert for slurred speech, and left facial droop. Current diet: NPO diet NPO except: Sips of clear liquids, Sips with meds Tube Feeding Tube feeding formula: Diabetisource AC; Route of feeding: Nasogastric; Tube feeding schedule: Continuous; Tube feeding continous initial Rate (ml/hr): 20; Advance by (ml): 10; Advance every (hr): 4; Tube feeding continuous goal rate (... Subjective Pt alert and cooperative. She is able to follow commands and participatory. Objective Respiratory Status: NC 2L Location of procedure: Radiology Dept, lateral view Oral phase -Lip closure: Escape towards mid-chin -Tongue Control During Bolus Hold: Posterior escape of less than half of bolus -Bolus Preparation/Mastication: prolonged with adequate bolus recollection -Bolus Transport/Lingual Motion: Delayed and Slowed -Oral Residue/Amount: Trace residue and Less than half the bolus remaining -Oral Residue Location: Lips, Tongue, Palate, Lateral sulci, and Floor of mouth Pharyngeal phase: -Swallow initiation: Impaired - laryngeal vestibule and Impaired - trachea -Soft palate elevation: No bolus between soft palate/pharyngeal wall -Laryngeal elevation: Partial -Anterior hyoid excursion: Partial -Epiglottic inversion: Complete -Vestibule closure: Incomplete -Stripping wave: Diminished -Pharyngeal contraction: Partial -BOT retraction: Incomplete - Pharyngeal residue amount: Mild - Pharyngeal residue location: BOT, Valleculae, Lateral channels, Posterior pharyngeal wall , and Pyriform sinuses -UES: functional PENETRATION/ASPIRATION: Consistency & Method of Administration 1 2 3 4 5 6 7 8 Comments IDDSI 0 tsp [] [] [] [] [] [] [] [x] before IDDSI 2 Tsp, cup [] [x] [x] [] [] [] [x] [x] Before, during IDDSI 3 Tsp, cup sip, straw sip [x] [] [] [] [] [] [] [] IDDSI 3 Sequential straw sip [] [] [x] [] [] [] [] [x] during IDDSI 4 [x] [] [] [] [] [] [] [] IDDSI 7 Regular [x] [] [] [] [] [] [] [] Description of Penetration/Aspiration Scale: 1. Material does not enter airway. 2. Material enters airway, remains above the vocal folds, and is ejected from the airway. 3. Material enters airway, remains above the vocal folds, and is not ejected from the airway. 4. Material enters airway, contacts the vocal folds, and is ejected from the airway. 5. Material enters airway, contacts the vocal folds, and is not ejected from the airway. 6. Material enters airway, passes below the vocal folds, and is ejected from trachea. 7. Material enters airway, passes below the vocal folds, and is not ejected from the trachea despite effort. 8. Material enters airway, passes below the vocal folds, and no effort is made to eject. (Sarah Antonio et al. A penetration-aspiration scale. Dysphagia. 1996;11(2):93-8.) Assessment Patient presents with moderate oropharyngeal dysphagia post acute CVA. Oral dysphagia is characterized by incomplete labial seal resulting in anterior loss of liquids progressing towards the midchin.There is posterior escape of less than half the bolus to the pharynx due to incomplete lingual palatal seal. Mastication w/ regular solids is prolonged. Oral clearance is adequate. Pharyngeal dysphagia is characterized by impaired airway protection and functional pharyngeal efficiency. Airway protection results in aspiration and penetration before the swallow due to delay in swallow initiation. Aspiration and penetration occur during the swallow 2/2 incomplete laryngeal elevation/excursion and incomplete LVC. Pt was unable to clear material from the trachea/vestibule. Bolus modification to honey thick liquid is effective in improving airway protection. Pharyngeal residue is insignificant. Given the results of this study, the probability of dysphagia-related pulmonary complications and malnutrition is increased. Prognosis: Good for improved function with skilled speech pathology services focusing on stated goals. Patient Education: Pt was educated on the results of this study and is agreeable to POC. Results and recommendations of this evaluation were communicated to: RN/Team Plan / Recommendations Diet recommendations: IDDSI 7 easy to chew (no mixed consistencies), IDDSI 3 moderately thick liquids via SINGLE cup/straw SIP, meds whole in puree/pudding. Therapy Frequency: 2x week for 2 weeks F/u Imaging: Repeat MBS in ~5-7 days Goals Complete dysphagia exercises to improve swallow initiation, laryngeal elevation/excursion, LVC EMST to improve cough strength * Nursing Note - Chai Merrill - 11/23/2024 10:37 AM EDT Stroke Team Interdisciplinary Transition of Care Huddle (STITCH) Patient: Michelle Ag Care Team: Patient Care Team: Pcp, No as PCP - General (Family Medicine) Staff Present: Marksmanship Instructor, Medical Appliance Maker, Pharmacy, Speech Therapy, Physical/Occupational Therapy, Neurology Resident, Neuroscience Nurse Navigator, Senior Living Sales Counselor, and Stroke Sales Administrator Level of Care: Progressive Status: stable RAAD Pending MBS Chai Merrill 11/23/24 10:38 AM * Progress Notes - Patricia Lee RN - 11/23/2024 9:42 AM EDT Case Management Adult Progress Note Michelle Felipe 74 y.o. female CSN: [id number] Admission: 11/20/2024 12:56 PM Primary Problem: Cerebrovascular accident (CVA) (CMS/HCC) Anticipated Discharge Date: pending MBS Has Discharge Plans Changed? No Medicare Second Notice: no Additional Comments: Pt pending MBS (anticipated for this afternoon at 1p). PT note completed this am and subacute referrals were sent via [facility]. Will continue to follow. Patricia Lee RN billing auditor JESSI/Stroke * Care Plan - Marquita Hodges RN - 11/23/2024 9:25 AM EDT Problem: Adult Inpatient Plan of Care Goal: Patient-Specific Goal (Individualized) Outcome: Ongoing, Progressing Flowsheets (Taken 11/23/2024799) Patient/Family-Specific Goals (Include Timeframe): Pt will be turned every 2 hours while in the bedduring the shift Individualized Care Needs: Skin integrity Anxieties, Fears or Concerns: None Problem: Fall Injury Risk Goal: Absence of Fall and Fall-Related Injury Outcome: Ongoing, Progressing Intervention: Identify and Manage Contributors Flowsheets (Taken 11/23/2024920) Medication Review/Management: medications reviewed Self-Care Promotion: BADL personal objects within reach Problem: Stroke, Ischemic (Includes Transient Ischemic Attack) Goal: Optimal Coping Outcome: Ongoing, Progressing Intervention: Support Psychosocial Response to Stroke Flowsheets (Taken 11/23/2024920) Supportive Measures: active listening utilized self-care encouraged verbalization of feelings encouraged Family/Support System Care: caregiver stress acknowledged self-care encouraged Goal: Optimal Cerebral Tissue Perfusion Outcome: Ongoing, Progressing Intervention: Protect and Optimize Cerebral Perfusion Flowsheets (Taken 11/23/2024920) Sensory Stimulation Regulation: care clustered Cerebral Perfusion Promotion: blood pressure monitored Problem: Skin Injury Risk Increased Goal: Skin Health and Integrity Outcome: Ongoing, Progressing Intervention: Optimize Skin Protection Flowsheets Taken 11/23/2024920 Activity Management: activity adjusted per tolerance Pressure Reduction Techniques: weight shift assistance provided Taken 11/23/2024799 Head of Bed (HOB) Positioning: HOB at 30 degrees Problem: Mobility Impairment Goal: Optimal Mobility Outcome: Ongoing, Progressing Intervention: Optimize Mobility Flowsheets (Taken 11/23/2024920) Activity Management: activity adjusted per tolerance Problem: Swallowing Impairment Goal: Optimal Eating and Swallowing Outcome: Ongoing, Progressing Intervention: Optimize Eating and Swallowing Flowsheets (Taken 11/23/2024920) Aspiration Precautions: NPO pending swallow screening/evaluation Problem: Functional Deficit Goal: Improved Balance and Postural Control Outcome: Ongoing, Progressing Intervention: Optimize Balance and Safe Activity Flowsheets Taken 11/23/2024920 Activity Management: activity adjusted per tolerance Self-Care Promotion: BADL personal objects within reach Taken 11/23/2024 0800 Safety Promotion/Fall Prevention: safety round/check completed Goal: Optimal Cognitive Function Outcome: Ongoing, Progressing Intervention: Optimize Cognitive Function Flowsheets (Taken 11/23/2024920) Sensory Stimulation Regulation: care clustered Self-Care Promotion: BADL personal objects within reach Goal: Compensation for Sensory Deficit Outcome: Ongoing, Progressing Intervention: Optimize Sensory Function Flowsheets (Taken 11/23/2024920) Pressure Reduction Techniques: weight shift assistance provided Sensation Impairment Protection: cues provided for safety Problem: Self-Care Deficit Goal: Improved Ability to Complete Activities of Daily Living Outcome: Ongoing, Progressing Intervention: Promote Activity and Functional [place] Flowsheets (Taken 11/23/2024920) Self-Care Promotion: BADL personal objects within reach * Progress Notes - Bonny Cancino, PharmD - 11/23/2024 8:48 AM EDT Antithrombosis Monitoring: Warfarin Michelle Felipe is a 74 y.o. female who has been continued on warfarin for LV thrombus. Warfarin Indication & Goal Anticoagulation Indication/Goal Warfarin Indication: Left Ventricular Thrombus;Atrial fibrillation Reason DOAC not prescribed: Failure on Alternate Therapy Duration of Anticoagulation: Indefinite Target INR: 2-3 Warfarin Prior to Admission: Yes Prior to Admission Daily Warfarin Regimen: Warfarin 5mg daily + 7.5mg on Friday Prior to Admission Weekly Warfarin Dose: 37.5mg Assessment Anticoagulation Assessment Nutritional Intake: Tube Feeding Today's INR : Subtherapeutic Warfarin INR & Dose Trends Date INR Warfarin Dose (mg) Comments 11/20 2.5 11/21 5 mg (not given) DHT clogged, unable to give medication 11/22 1.6 5mg 11/23 1.8 4mg Plan Anticoagulation Plan Warfarin Pharmacist Managed?: Yes Warfarin Plan: Decrease dose Specify Warfarin Dose: Warfain 4mg [facility] Warfarin Dosing Protocol Followed?: Yes (Originally went off protocol due to concern for active LV thrombus and wanting to ensure therapeutic. However, repeat echo showing clearance of thrombus so protocol now being followed) Bridging Agent in Conjunction With Warfarin? : No INR Monitoring Frequency: Monitor INR daily Patient Education : Incomplete Will continue to follow patient's clinical progress daily. Bonny Cancino PharmD 11/23/2024 12:08 PM * Care Plan - Nneka Curran RN - 11/23/2024 4:52 AM EDT Problem: Adult Inpatient Plan of Care Goal: Plan of Care Review Flowsheets Taken 11/23/2024 0448 Progress: improving Taken 11/22/2024 015 Plan of Care Reviewed With: patient spouse Goal: Patient-Specific Goal (Individualized) Flowsheets (Taken 11/22/20241999) Patient/Family-Specific Goals (Include Timeframe): pt. will remain free from falls this shift Individualized Care Needs: safety Anxieties, Fears or Concerns: none Goal: Absence of Hospital-Acquired Illness or Injury Intervention: Identify and Manage Fall Risk Flowsheets (Taken 11/23/2024 0400) Safety Promotion/Fall Prevention: activity supervised safety round/check completed Intervention: Prevent Skin Injury Flowsheets (Taken 11/23/2024 0400) Body Position: turned Intervention: Prevent and Manage VTE (Venous Thromboembolism) Risk Flowsheets (Taken 11/23/2024 0400) VTE Prevention/Management: bilateral SCDs (sequential compression devices) on Intervention: Prevent Infection Flowsheets (Taken 11/22/2024 015) Infection Prevention: cohorting utilized environmental surveillance performed equipment surfaces disinfected hand hygiene promoted rest/sleep promoted single patient room provided Goal: Optimal Comfort and Wellbeing Intervention: Provide Person-Centered Care Flowsheets (Taken 11/22/2024 015) Trust Relationship/Rapport: care explained questions encouraged thoughts/feelings acknowledged Problem: Fall Injury Risk Goal: Absence of Fall and Fall-Related Injury Intervention: Identify and Manage Contributors Flowsheets (Taken 11/22/2024 0154) Medication Review/Management: medications reviewed Self-Care Promotion: BADL personal objects within reach Intervention: Promote Injury-Free Environment Flowsheets (Taken 11/23/2024 0400) Safety Promotion/Fall Prevention: activity supervised safety round/check completed Problem: Stroke, Ischemic (Includes Transient Ischemic Attack) Goal: Optimal Coping Intervention: Support Psychosocial Response to Stroke Flowsheets (Taken 11/22/2024 015) Supportive Measures: active listening utilized self-reflection promoted Family/Support System Care: caregiver stress acknowledged involvement promoted self-care encouraged Goal: Effective Bowel Elimination Intervention: Promote Effective Bowel Elimination Flowsheets (Taken 11/22/2024 015) Bowel Elimination Management: hygiene measures promoted relaxation techniques promoted Bowel Program: maintenance program followed Goal: Optimal Cerebral Tissue Perfusion Intervention: Protect and Optimize Cerebral Perfusion Flowsheets (Taken 11/22/2024153) Sensory Stimulation Regulation: auditory stimulation minimized care clustered lighting decreased quiet environment promoted tactile stimulation minimized visual stimulation minimized Cerebral Perfusion Promotion: blood pressure monitored Goal: Optimal Cognitive Function Intervention: Optimize Cognitive Function Flowsheets (Taken 11/22/2024 015) Sensory Stimulation Regulation: auditory stimulation minimized care clustered lighting decreased quiet environment promoted tactile stimulation minimized visual stimulation minimized Reorientation Measures: clock in view Environment Familiarity/Consistency: familiar objects from home provided Goal: Improved Communication Skills Intervention: Optimize Communication Skills Flowsheets (Taken 11/22/2024 015) Communication Enhancement Strategies: call light answered in person Goal: Optimal Functional Ability Intervention: Optimize Functional Ability Flowsheets Taken 11/23/2024 0400 Activity Management: activity adjusted per tolerance Taken 11/22/2024153 Self-Care Promotion: BADL personal objects within reach Goal: Optimal Nutrition Intake Intervention: Promote and Optimize Fluid and Food Intake Flowsheets (Taken 11/22/2024 015) Nutrition Interventions: diet adjusted Goal: Effective Oxygenation and Ventilation Intervention: Optimize Oxygenation and Ventilation Flowsheets Taken 11/23/2024399 Head of Bed (HOB) Positioning: HOB at 30 degrees Taken 11/22/2024153 Airway/Ventilation Management: airway patency maintained Goal: Improved Sensorimotor Function Intervention: Optimize Range of Motion, Motor Control and Function Flowsheets Taken 11/23/2024 0400 Range of Motion: active ROM (range of motion) encouraged Taken 11/22/2024153 Spasticity Management: positioned with supportive device Positioning/Transfer Devices: repositioning sheet pillows Goal: Safe and Effective Swallow Intervention: Optimize Eating and Swallowing Flowsheets (Taken 11/22/2024 015) Aspiration Precautions: NPO pending swallow screening/evaluation Goal: Effective Urinary Elimination Intervention: Promote Effective Bladder Elimination Flowsheets (Taken 11/22/2024 015) Urinary Elimination Promotion: absorbent pad/diaper use encouraged frequent voiding encouraged positioned for ease of voiding Problem: Skin Injury Risk Increased Goal: Skin Health and Integrity Intervention: Optimize Skin Protection Flowsheets (Taken 11/23/2024 0400) Activity Management: activity adjusted per tolerance Head of Bed (HOB) Positioning: HOB at 30 degrees Intervention: Promote and Optimize Oral Intake Flowsheets (Taken 11/22/2024 015) Nutrition Interventions: diet adjusted Problem: Mobility Impairment Goal: Optimal Mobility Intervention: Optimize Mobility Flowsheets Taken 11/23/2024 0400 Activity Management: activity adjusted per tolerance Taken 11/22/2024153 Positioning/Transfer Devices: repositioning sheet pillows Problem: Swallowing Impairment Goal: Optimal Eating and Swallowing Intervention: Optimize Eating and Swallowing Flowsheets (Taken 11/22/2024 015) Aspiration Precautions: NPO pending swallow screening/evaluation Problem: Functional Deficit Goal: Improved Balance and Postural Control Intervention: Optimize Balance and Safe Activity Flowsheets Taken 11/23/2024 0400 Activity Management: activity adjusted per tolerance Safety Promotion/Fall Prevention: activity supervised safety round/check completed Taken 11/22/2024153 Self-Care Promotion: BADL personal objects within reach Goal: Optimal Cognitive Function Intervention: Optimize Cognitive Function Flowsheets (Taken 11/22/2024 015) Sensory Stimulation Regulation: auditory stimulation minimized care clustered lighting decreased quiet environment promoted tactile stimulation minimized visual stimulation minimized Environment Familiarity/Consistency: familiar objects from home provided Self-Care Promotion: BADL personal objects within reach Problem: Self-Care Deficit Goal: Improved Ability to Complete Activities of Daily Living Intervention: Promote Activity and Functional [place] Flowsheets Taken 11/23/2024 0448 Activity Assistance Provided: assistance, 2 people Taken 11/22/2024153 Self-Care Promotion: BADL personal objects within reach * Progress Notes - Babs Alvarez MD - 11/22/2024 5:18 PM EDT Stroke Wards Progress Note Summary Michelle Felipe is a 74 y.o. female with PMH of prior LV thrombus and atrial fibrillation on warfarin, prior stroke with no residual deficit, hypertension, diabetes, hyperlipidemia, hypothyroidism, chronic hypoxic respiratory failure on 2 L nasal cannula at home, HFpEF, SLE. Stroke neurology was consulted as a stroke alert for slurred speech, and left facial droop. LKN was around 11:45 a.m. on 11/20/2024. -NIHSS on initial exam was 2. -CTH showed no acute intracranial abnormality. 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 -Thrombolytics were not administered due to history of anticoagulant use in the last 24 hours. Thrombectomy was not performed due to no large vessel occlusion. Subjective Yesterday evening she did have an episode of SOB and JUNIOR PHP DEVELOPER was mobilized. She was subsequently placedon a non-rebreather mask and the HOB was elevated. During the rapid response, the rapid team suctioned a mucus plug and sats improved into the 90s. A CXR was ordered in addition to q6h albuterol/Mucomyst nebulizers. She was in chair in the morning. Interactive and wanting to know more about her scans. Objective Vitals: 11/22/24 0738 11/22/24 0925 11/22/24 1155 11/22/24 1622 BP: (!) 160/58 (!) 171/56 BP Location: Right arm Patient Position: Lying Pulse: 60 61 Resp: 15 19 Temp: 36.4 ??C (97.5 ??F) 36.4 ??C (97.6 ??F) 36.8 ??C (98.2 ??F) TempSrc: Oral SpO2: 100% 99% Weight: Height: Temp (72hrs), Av.6 ??C (97.8 ??F), Min:36.2 ??C (97.2 ??F), Max:37.1 ??C (98.7 ??F) Constitutional: Patient in no acute distress. Patient appears stated age. Ears, Nose, Mouth, Throat: Mucous membranes appear moist. No appreciable hearing impairment. Nares patent. Eyes: Anicteric sclera. No appreciable conjunctival injection. Cardiovascular: Appears well-perfused. No appreciable edema. Respiratory: Symmetric chest expansion. Non-labored breathing. Gastrointestinal: No appreciable abdominal distention. No appreciable abdominal tenderness. No appreciable rebound tenderness. Neurological: Mental Status: A&O x 3, interactive, able to follow commands Speech: mild dysarthria, Fluent language Cortical: No Extinction CN: II - PERRLA, VF full III, IV, - EOMI V - Facial sensation intact VII - flattening of left nasolabial fold VIII - Auditory acuity intact RUE: 4-/5 strength LUE: 4-/5 strength RLE:4-/5 strength LLE: 4-/5 strength Sensory: Sensation to light touch in all four extremities intact and symmetric. Coordination: No limb ataxia with [id number] or [id number]. Gait: Deferred Labs: Lab values personally reviewed, notable for INR- 1.6 (did not receive warfarin for 1 day), hyperglycemia, hypoalbuminemia, mild AST elevation. Stroke Labs: TSH, LDL, A1C, Troponin 11/20/2024: Hemoglobin A1c 8.7 % (H; Ref range: <5.7 %); Thyroid Stimulating Hormone, Plasma 3.30uIU/mL (Ref range: 0.40 - 4.20 uIU/mL) 11/21/2024: LDL, Calculated 31 mg/dL (Ref range: <100 mg/dL) CBC: Results from last 7 days Lab Units 11/22/24 0942 11/20/24 1339 WBC 10*3/uL 8.81 7.31 HEMOGLOBIN g/dL 11.9 10.7* HEMATOCRIT % 37.4 32.3* PLATELETS 10*3/uL 392* 289 CMP/RFP: Results from last 7 days Lab Units 11/22/24 0942 11/20/24 1339 SODIUM mmol/L 137 134* POTASSIUM mmol/L 4.1 3.9 CHLORIDE mmol/L 92* 93* CO2 mmol/L 24 28 BUN mg/dL 33* 25* CREATININE mg/dL 0.97 0.91 CALCIUM mg/dL 9.4 8.7* ALBUMIN g/dL 3.3* 3.0* BILIRUBIN TOTAL mg/dL 0.5 0.4 ALKALINE PHOSPHATASE U/L 128 131 AST U/L 42* 36* ALT U/L 25 22 GLUCOSE mg/dL 278* 173* Imaging: We personally viewed the images of the patient's CT head obtained earlier this morning, which demonstrated hypodensity in the right temporal lobe consistent with recent ischemic infarct. There is also a minimal amount of cerebral edema with some mass effect. Assessment and Plan Michelle Fleipe is a 74 y.o. female with PMH of prior LV thrombus and atrial fibrillation on warfarin, prior stroke with no residual deficit, hypertension, diabetes, hyperlipidemia, hypothyroidism, chronic hypoxic respiratory failure on 2 L nasal cannula at home, HFpEF, SLE. Stroke neurology was consulted as a stroke alert for slurred speech, and left facial droop. # Acute ischemic stroke in the right temporal lobe # Cerebral edema with brain compression # Dysarthria and left facial droop # Impaired functional activities due to stroke (POA) # limitation of activities due to disability from stroke # History of Afib # history of LV thrombus -Mechanism: Likely given the history of atrial fibrillation -LKN: 11:45 a.m. on 11/20/2024 -Risk Factors: Hypertension, diabetes, hyperlipidemia, atrial fibrillation, chronic LV thrombus -Total NIHSS Score: 2 -CT Head demonstrated showed no acute intracranial abnormality. 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 - CTH repeat on 915 AM shows ischemic infarct in temporal lobe on right. -Thrombolytics not given due to history of anticoagulant use in the last 24 hours -Thrombectomy not performed due to no LVO Plan -Echo: LVEF 44%, septal motion consistent with conduction abnormality; no visible left ventricular thrombus -BP goals: <160 -Na goals: Normal -EKG: ventricular paced rhythm -Secondary stroke prophylaxis: Atorvastatin 40 mg, restart warfarin, stopped aspririn -PT/OT- pending - INSULATOR CUTTER AND FORMER: sandrita hodges advised -Neuro checks and NIHSS per protocol -Continuous telemetry monitoring -MMoCA and PHQ-9 at discharge Seizure: - concerns for seizure with history at home before weakness and slurring of speech from daughter - routine EEG to be done today - no active seizure now Acute on chronic hypoxic respiratory failure 2/2 recurrent pleural effusion s/p R sided thoracentesis (09/11/24) - on home oxygen - h/o prior pleurodesis per daughter - consulted pulmonology for pleural tapping/ pleurodesis Acute on chronic HFpEF - Continue home oxygen 2L - Not significantly volume overloaded on exam although does have some pedal edema - home furosemide, metoprolol restarted Hypothyroidsim - Restarted Levothyroxine 125 mcg DM - Started SSI and hypoglycemia monitoring SLE -Follows with [facility], on plaquenil and mycophenolate -has c/o painful mouth sores and sores along her elbow and hand small joint along with possible dactylitis - Takes Hydroxychloroquine at home. Restarted Chronic medical conditions: - Chronic Neuropathic pain: Gabapentin and Duloxetine. Resumed home med F: DHT E: Replace PRN N: DHT DVT ppx: pLOV Discharge Recommendation: Subacute rehab Full Code Babs Maddox Neurology PGY1 Cosigned by Cirilo Majano MD at 11/22/2024 8:34 PM EDT Associated attestation - Cirilo Majano MD - 11/22/2024 8:34 PM EDT I saw and evaluated the patient with the resident/fellow. I discussed the case with the resident/fellow and agree with the findings and plan as documented. * Consults - Awa Rand RD - 11/22/2024 3:18 PM EDTAssociated Order(s): IP CONSULT TO NUTRITION SERVICES Adult Nutrition Evaluation Note Michelle Felipe 74 y.o. female CSN: [id number] Room/Bed 123/123A Nutrition evaluation type: assessment Reason for evaluation: provider consult (Nutrition to Provide Recommendation) Hospital course: 74 y o F admitted 11/20/24 for acute right side ischemic stroke. Feeding tube placed 11/21. On 11/22 INSULATOR CUTTER AND FORMER rec continue NPO with DHT for nutrition/hydration/medication. Past medical/ surgical history: Past Medical History[1], CVA (2018), chronic LV thrombus, A-Fib, HTN, DM, HLD, hypothyroidism, chronic hypoxic respiratory failure, HFpEF, SLE Surgical History[2] Social history: Social History[3] Additional comments: 11/22: Called pt room; no answer Vitals and Basic Assessment: BP: (!) 171/56 Temp: 36.4 ??C (97.6 ??F) Oxygen Therapy: Supplemental oxygen O2 Delivery Method: Nasal cannula Atkins Coma Scale Score: 14 Jann Scale Score: 16 Skin: diabetic ulcers left foot, right toe wound Allergies: NKA Medications: Current Scheduled Medications[4] Current Continuous Medications[5] Current PRN Medications[6] Labs: Results from last 7 days Lab Units 11/22/24 0942 11/20/24 1339 WBC 10*3/uL 8.81 7.31 HEMOGLOBIN g/dL 11.9 10.7* HEMATOCRIT % 37.4 32.3* PLATELETS 10*3/uL 392* 289 Results from last 7 days Lab Units 11/22/24 0942 11/20/24 1339 SODIUM mmol/L 137 134* POTASSIUM mmol/L 4.1 3.9 CHLORIDE mmol/L 92* 93* CO2 mmol/L 24 28 BUN mg/dL 33* 25* CREATININE mg/dL 0.97 0.91 EGFR mL/min/1.73m*2 61.8 66.8 GLUCOSE mg/dL 278* 173* CALCIUM mg/dL 9.4 8.7* -BG & BUN elevated - monitor trends No results found for: MG Lab Results Component Value Date ALT 25 11/22/2024 AST 42 (H) 11/22/2024 ALKPHOS 128 11/22/2024 BILITOT 0.5 11/22/2024 Lab Results Component Value Date ALBUMIN 3.3 (L) 11/22/2024 -Albumin is a negative acute phase protein, and therefore not a reliable indicator of malnutrition. No results found for: PREALBUMIN No results found for: CRP Lab Results Component Value Date HGBA1C 8.7 (H) 11/20/2024 -PMH DM noted; reflects inadequate briquette operator glycemic control Lab Results Component Value Date CHOL 95 11/21/2024 Lab Results Component Value Date HDL 50 11/21/2024 Lab Results Component Value Date LDLCALC 31 11/21/2024 Lab Results Component Value Date TRIG 66 11/21/2024 Anthropometrics: Height: 162.6 cm Weight: 53.4 kg IBW: 54.5 kg %IBW: 98 Adjusted Body Weight: N/A BMI: 20.2 Wt evaluation: Normal Weight History: Wt Readings from Last 30 Encounters: 11/21/24 53.4 kg (117 lb 11.6 oz) Estimated Needs: Kcal: 28-32 kcal/kg (7347-9522 kcal/d) Protein: 1.2-1.5 g/kg (64-80 g/d) Based on: Current wt (53.4 kg) Current Nutrition Intake: Diet: NPO Supplements: (--) Intake: (--) Nutrition Support: Tube Feeding Route: DHT; KUB 11/21: The enteric tube loops in the midabdomen with the tip in LUQ Active Enteral Regimen: Diabetisource AC @ goal rate 45 ml/hr (990 ml/day) Provides: 1188 kcal, 59g protein, 99g CHO, 15g fiber, 58g fat, 810 ml water and 79% RDIs vit/min Avg enteral infusion: establishing Tolerates: establishing Diet Experience & Nutrition History: Diet Education: Will monitor Pertinent Home Medications: Ca+D, Zetia, Lasix, Insulin, Calcium, Aldactone, Coumadin Nutrition Focused Physical Exam: Physical exam performed on (date): pending - unable to access exam locations Assessment of Malnutrition: Nutrition Problem: Inadequate oral intake related to recent stroke as evidenced by NPO, TF to provide nutrition. Status of Nutrition Diagnosis: New Nutrition Interventions and Recommendations: -NPO; defer po diet initiation to INSULATOR CUTTER AND FORMER -TF: Recommend increasing Diabetisource AC goal rate to 60 ml/hr (1320 ml/day) -Provides: 1584 kcal, 79g protein, 132g CHO, 20g fiber, 78g fat, 1082 ml water and 106% RDIs vit/min -FW: management per team at this time -Recommend weekly weight monitoring Nutrition Monitoring and Goals: -Monitor tolerance and adequacy of po intake / enteral infusion, wt changes, bowel fxn, labs, skin integrity; and follow up per acuity -Avg >80% goal enteral volume daily -NFPE on follow up Acuity Level: 4 Awa Rand, DEREK, LD [1] No past medical history on file. [2] No past surgical history on file. [3] [4] acetylcysteine, 4 mL, Nebulization, q6h MELLY albuterol, 2.5 mg, Nebulization, q6h atorvastatin, 40 mg, Nasogastric, Nightly brimonidine, 1 drop, Both Eyes, Nightly calcium-vitamin D, 1 tablet, Nasogastric, Daily cetirizine, 10 mg, Nasogastric, Nightly ezetimibe, 10 mg, Nasogastric, Daily furosemide, 80 mg, Nasogastric, Daily gabapentin, 600 mg, Nasogastric, BID hydroxychloroquine, 200 mg, Nasogastric, Nightly insulin regular, 0-10 Units, Subcutaneous, q6h MELLY latanoprost, 1 drop, Both Eyes, Nightly levothyroxine, 125 mcg, Nasogastric, Daily with breakfast metoprolol tartrate, 25 mg, Nasogastric, BID Tiotropium [place] Monohydrate, 2 puff, Inhalation, Daily And mometasone-formoterol, 2 puff, Inhalation, BID mycophenolate, 1,000 mg, Nasogastric, BID senna-docusate, 1 tablet, Nasogastric, BID sodium chloride, 10 mL, Intravenous, q12h warfarin, 5 mg, Nasogastric, Once per day on Friday [START ON 11/23/2024] warfarin, 7.5 mg, Nasogastric, Every Friday [5] [6] PRN medications: albuterol, glucose OR dextrose 10 % OR dextrose 10 % OR glucagon (human recombinant), hydrALAZINE OR hydrALAZINE, labetalol OR labetalol, nitroglycerin, [COMPLETED] Insert peripheral IV AND [COMPLETED] Saline lock IV AND sodium chloride AND sodium chloride * Bonny Parra, PharmD - 11/22/2024 2:17 PM EDT Images from the original note were not included. [id number] Warfarin IMPORTANT WARNING: Warfarin may cause severe bleeding [...] doctor or pharmacist will give you the derrick operator's patient information sheet (Medication Guide) when you begin treatment with warfarin and each time you refill your prescription. Read the information carefully and ask your doctor or pharmacist if you have any questions. You can also visit the Food and Drug Administration (FDA) website (https://www.fda.gov/downloads/Drugs/DrugSafety/xwe240045.pdf) or the derrick operator's website to obtain the Medication Guide. Talk [...] amounts of vitamin K-containing food on a chio-wr-plyc basis. Do not eat large amounts of [...] moisture (not in the bathroom), and light. Dispose of unneeded medications in a way so that pets, children, and other people cannot take them.Do not flush this medication down the toilet. Use a medicine take-back program. Talk to your pharmacist about take-back programs in your community. Visit the FDA's Safe Disposal of Medicines website h ttps://goo.gl/c4Rm4p for more information. Keep all medication out of sight and reach of children as many containers are not child-resistant. Always lock safety caps. Place the medication in a safe location - [...] be awakened, immediately call emergency services at 175. Symptoms of overdose may include the following: [...] questions you have about refilling your prescription. Keep a written list of all of the prescription and nonprescription (rton-dsd-ckelnsr) medicines, vitamins, minerals, and dietary supplements you are taking. Bring this list with you each time you visit a doctor or if you are admitted to the hospital. You should carry the list with you in case of bhaskar rgencies. Brand Name(s): ? Coumadin?? ? Jantoven?? also available generically This report on medications is for your information only, and is not considered individual patient advice. Because of the changing nature of drug information, please consult your physician or pharmacist about specific clinical use. The [employer] represents that the information provided hereunder was formulated with a reasonable standard of care, and in conformity with professional standards in the field. The [employer] makes no representations or warranties, express or implied, including, but not limited to, any implied warranty of merchantability and/or fitness for a particular purpose, with respect to such information and specifically disclaims all such warranties. Users are advised that decisions regarding drug therapy are complex medical decisions requiring the independent, informed decision of an appropriate health child care education coordinator, and the information is provided for informational purposes only. The entire monograph for a drug should be reviewed for a thorough understanding of the drug's actions, uses and side effects. The [employer] does not endorse or recommend the use of any drug.The information is not a substitute for medical care. AHFS?? Patient Medication Information?. ?? Copyright, 2023. [employer]??, [address], [address], [place], [place]. All Rights Reserved. Duplication for commercial use must be authorized by [facility]. Selected Revisions: August 22, 2016. AHFS?? Patient Medication Information?. ?? Copyright, 2024 * Care Plan - Marcelina Chamberlain RN - 11/22/2024 1:30 PM EDT Problem: Skin Injury Risk Increased Goal: Skin Health and Integrity Outcome: Ongoing, Progressing Intervention: Optimize Skin Protection Flowsheets (Taken 11/22/2024 5300) Activity Management: up in chair Pressure Reduction Techniques: positioned off wounds Pressure Reduction Devices: positioning supports utilized feet on footrest/footstool Skin Protection: other (see comments) Note: Betadine paint applied. Patient evaluated by WOCN, individualized orders placed and care planinterventions placed, see wound care note for further details. * H&P - Doc Allen MD - 11/22/2024 1:29 PM EDTAssociated Order(s): Inpatient consult to Pulmonology Images from the original note were not included. Inpatient consult to Pulmonology Consult performed by: Doc Allen MD Consult ordered by: Cirilo Majano MD Reason for consult: bilateral effusion Subjective Chief complaint Slurred speech and L facial droop History Of Present Illness Michelle Felipe is a 74 y.o. female with PMH of chronic LV thrombus and atrial fibrillation on warfarin, prior stroke with no residual deficit, hypertension, diabetes, hyperlipidemia, hypothyroidism, chronic hypoxic respiratory failure on 2 L nasal cannula at home, HFpEF, SLE presenting with slurred speech and L facial droop. Patient had thoracentesis performed on 09/11/24 which was transudative and cytology without evidence of malignancy; pH 7.5, LDH 166. Patient endorses mild dyspnea without acute worsening. Medical/Surgical/Social/Family History Past Medical History[1] Surgical History[2] Social History[3] Family History[4] Travel History Relevant International Travel History: Travel Screening Question Response Have you been in contact with someone who was sick? No / Unsure Do you have any of the following new or worsening symptoms? None of these Have you traveled internationally or domestically in the last month? No Travel History Travel since 10/22/24 No documented travel since 10/22/24 Immunizations Not reviewed Allergies Patient has no known allergies. Outpatient medications in system Home Medications[5] Medications ordered for hospitalization Current Scheduled Medications[6] Current Continuous Medications[7] Current PRN Medications[8] Objective Review of Systems All other systems reviewed and are negative. Physical Exam Constitutional: Appearance: Normal appearance. HENT: Head: Normocephalic and atraumatic. Eyes: Extraocular Movements: Extraocular movements intact. Pupils: Pupils are equal, round, and reactive to light. Pulmonary: Effort: Pulmonary effort is normal. Breath sounds: Normal breath sounds. Abdominal: General: Abdomen is flat. Palpations: Abdomen is soft. Musculoskeletal: Cervical back: Normal range of motion and neck supple. Skin: General: Skin is warm and dry. Neurological: Mental Status: She is alert and oriented to person, place, and time. Last Recorded Vitals Blood pressure (!) 171/56, pulse 61, temperature 36.4 ??C (97.6 ??F), resp. rate 19, height 1.626 m(5' 4.02 ), weight 53.4 kg (117 lb 11.6 oz), SpO2 99%. Results Review I have reviewed the latest lab and imaging results. Assessment & Plan Cerebrovascular accident (CVA) (CMS/HCC) #Bilateral pleural effusions - Thoracentesis on 09/11: ph 7.5, LDH 155 (transudative) - CXR (11/21) Moderate R and small L pleural effusions - afeb, WBC 8.8, sat well on 2L (baseline) Plan: - No plan for thoracentesis at this time, please reach out with any concerns for clinical worsening [1] No past medical history on file. [2] No past surgical history on file. [3] [4] No family history on file. [5] Medications Prior to Admission Medication Sig Dispense Refill acetaminophen (Tylenol) 500 MG tablet Take 2 tablets by mouth every 6 hours as needed. aspirin 81 MG EC tablet Take 1 tablet by mouth daily. brimonidine 0.2 % OP ophthalmic solution Administer 1 drop into both eyes nightly. Calcium Carbonate-Vitamin D (calcium-vitamin D) 500-200 MG-UNIT tablet Take 1 tablet by mouth daily. cetirizine (ZyrTEC) 10 MG tablet Take 1 tablet by mouth nightly. DULoxetine (Cymbalta) [address] capsule Take 1 capsule by mouth every morning. DULoxetine (Cymbalta) [address] capsule Take 1 capsule by mouth every morning. ezetimibe (Zetia) 10 MG tablet Take 1 tablet by mouth daily. furosemide (Lasix) 80 MG tablet Take 1 tablet by mouth daily. gabapentin (Neurontin) 300 MG capsule Take 2 capsules by mouth 2 times a day. Glucagon, rDNA, (Glucagon Emergency) 1 MG kit 1 mg as needed. glucose (Trueplus Glucose) 4 g chewable tablet Chew 4 tablets as needed for low blood sugar. HumaLOG KWIKPEN 100 UNIT/ML injection pen Inject 3 Units under the skin 3 times a day with meals. hydroxychloroquine (Plaquenil) 200 MG tablet Take 1 tablet by mouth nightly. latanoprost (Xalatan) 0.005 % ophthalmic solution Administer 1 drop into both eyes nightly. levothyroxine (Synthroid, Levoxyl) 125 MCG tablet Take 1 tablet by mouth daily with breakfast. metoprolol succinate XL (Toprol-XL) 25 MG 24 hr tablet Take 1 tablet by mouth daily. mycophenolate (Cellcept) 500 MG tablet Take 2 tablets by mouth 2 times a day. nitroglycerin (Nitrostat) 0.[address] 1 tablet under the tongue every 5 minutes as needed. Pitavastatin Calcium 4 MG tablet Take 1 tablet by mouth daily. spironolactone (Aldactone) 25 MG tablet Take 0.25 tablets by mouth daily. Toujeo SoloStar 300 UNIT/ML injection pen (1 UNIT DIAL) Inject 6 Units under the skin 2 times a day. Trelegy Ellipta 200-62.5-25 MCG/ACT aerosol powder Take 1 puff by mouth daily. Urine Glucose-Ketones Test (Keto-Diastix) strip 1 strip by In Vitro route daily. warfarin (Coumadin) 5 MG tablet Take 1 tablet by mouth daily. Except 1.5 tablets on Friday [6] acetylcysteine, 4 mL, Nebulization, q6h MELLY albuterol, 2.5 mg, Nebulization, q6h atorvastatin, 40 mg, Nasogastric, Nightly brimonidine, 1 drop, Both Eyes, Nightly calcium-vitamin D, 1 tablet, Nasogastric, Daily cetirizine, 10 mg, Nasogastric, Nightly ezetimibe, 10 mg, Nasogastric, Daily furosemide, 80 mg, Nasogastric, Daily gabapentin, 600 mg, Nasogastric, BID hydroxychloroquine, 200 mg, Nasogastric, Nightly insulin regular, 0-10 Units, Subcutaneous, q6h MELLY latanoprost, 1 drop, Both Eyes, Nightly levothyroxine, 125 mcg, Nasogastric, Daily with breakfast metoprolol tartrate, 25 mg, Nasogastric, BID Tiotropium [place] Monohydrate, 2 puff, Inhalation, Daily And mometasone-formoterol, 2 puff, Inhalation, BID mycophenolate, 1,000 mg, Nasogastric, BID senna-docusate, 1 tablet, Nasogastric, BID sodium chloride, 10 mL, Intravenous, q12h warfarin, 5 mg, Nasogastric, Once per day on Friday [START ON 11/23/2024] warfarin, 7.5 mg, Nasogastric, Every Friday [7] [8] PRN medications: albuterol, glucose OR dextrose 10 % OR dextrose 10 % OR glucagon (human recombinant), hydrALAZINE OR hydrALAZINE, labetalol OR labetalol, nitroglycerin, [COMPLETED] Insert peripheral IV AND [COMPLETED] Saline lock IV AND sodium chloride AND sodium chloride Cosigned by Micky Adamson MD at 11/22/2024 5:53 PM EDT Associated attestation - Micky Adamson MD - 11/22/2024 5:53 PM EDT I saw and evaluated the patient with the resident/fellow. I discussed the case with the resident/fellow and agree with the findings and plan as documented. 74-year-old woman with history of heart failure, lupus on CellCept and Plaquenil, AFib, prior LV thrombus and recurrent right effusion with multiple thoracentesis and chest tube but talc slurry pleurodesis on 08/19 24 that failed and was being considered for pleural peritoneal shunt admitted with slurred speech and left facial droop. We were consulted for pleural effusion on chest imaging. Considering she is at baseline respiratory status and had recent thoracentesis (09/11) with transudative fluids and no other signs of infection-we will hold off on repeat thoracentesis at this point. * Discharge Instr - Other Orders - Marcelina Chamberlain RN - 11/22/2024 1:29 PM EDT Recommend outpatient podiatry or wound clinic referral. * Progress Notes - Marcelina Chamberlain RN - 11/22/2024 1:25 PM EDT Images from the original note were not included. Wound Care Consult Visit Date: 11/22/2024 Patient Name: Michelle Felipe Date of : 1950 Admit Date: 11/20/2024 Reason for Consult: New consult for feet. IP Wound Orders (From admission, onward) Start Ordered 11/22/24 0758 Wound ostomy eval and treat Once Comments: Bilat feet wounds Question Answer Comment Reason for consult: Wound/pressure injury Instructions: Prior to sending evaluation & treat order, place wound/ostomy LDA, complete a wound/ostomy assessment, and consider taking a photograph to document. 11/22/24 0758 Wound History: Pt is diabetic, Hgb A1c 8.7 Wound Assessment: Wound 11/20/24 Diabetic Ulcer Foot Left (Active) Date First Assessed/Time First Assessed: 11/20/24 1530 Present on Original Admission: Yes Primary Wound Type: Diabetic Ulcer Location: Foot Wound Location Orientation: Left Wound Description (Comments): borrom of the left foot Assessments 11/22/2024 11:36 AM Wound Image Wound Assessment Dry;Brown Margins Poorly defined Karyn-Wound Assessment Intact Shape irregular Drainage Amount None Treatments Betadine [place] Dressing Open to air Active Orders Date Order Priority Status Authorizing Provider 11/22/24 1325 Apply/Change Wound Dressing 3 Wounds Associated Routine Active OCirilo Tillamn MD - Dressing Type: Other Dressings - Other: Betadine solution - Other: Other (Comment) - Other dressing (comment):: TOES, LEFT PLANTAR FOOT: [place] wound with betadine BID, wash all old betadine off with soap and water prior to reapplication. Leave open to air or dress with dry gauze/kerlix per pt preference. Wound 11/22/24 Toe (Comment which one) Anterior;Right (Active) Date First Assessed/Time First Assessed: 11/22/24 1137 Location: Toe (Comment which one) Wound Location Orientation: Anterior;Right Assessments 11/22/2024 11:37 AM Wound Image Wound Assessment Dry;Brown Margins Poorly defined Karyn-Wound Assessment Intact Shape irregular Drainage Amount None Treatments Betadine [place] Dressing Open to air Active Orders Date Order Priority Status Authorizing Provider 11/22/24 1325 Apply/Change Wound Dressing 3 Wounds Associated Routine Active Cirilo Majano MD - Dressing Type: Other Dressings - Other: Betadine solution - Other: Other (Comment) - Other dressing (comment):: TOES, LEFT PLANTAR FOOT: [place] wound with betadine BID, wash all old betadine off with soap and water prior to reapplication. Leave open to air or dress with dry gauze/kerlix per pt preference. Wound 11/22/24 Diabetic Ulcer Foot Left;Posterior (Active) Date First Assessed: 11/22/24 Present on Original Admission: Yes Primary Wound Type: Diabetic Ulcer Location: Foot Wound Location Orientation: Left;Posterior Assessments 11/22/2024 11:38 AM Wound Image Wound Assessment Dry;Brown Margins Well-defined edges Karyn-Wound Assessment Calloused Shape round Drainage Amount None Treatments Betadine [place] Dressing Open to air Active Orders Date Order Priority Status Authorizing Provider 11/22/24 1325 Apply/Change Wound Dressing 3 Wounds Associated Routine Active Cirilo Majano MD - Dressing Type: Other Dressings - Other: Betadine solution - Other: Other (Comment) - Other dressing (comment):: TOES, LEFT PLANTAR FOOT: [place] wound with betadine BID, wash all old betadine off with soap and water prior to reapplication. Leave open to air or dress with dry gauze/kerlix per pt preference. Wound Team Summary Assessment: Dry red wounds to dorsal toes consistent with minor trauma/abrasion (family at bedside states pt often walks barefoot), round dry full thickness wound to left plantar foot with shape changes consistent with charcot foot, consistent with diabetic ulcer. Recommend betadine paint, float heels, outpatient podiatry or wound care follow up. Wound Team Plan: Assessment and orders as above. Wound care will follow up at regular intervals while inpatient; bedside nursing to follow wound care recommendations as ordered and please re-consult sooner for new changes or concerns prior to follow up. Marcelina Chamberlain RN 11/22/2024 1:25 PM * Progress Notes - Bonny Cancino PharmD - 11/22/2024 12:28 PM EDT Antithrombosis Monitoring: Warfarin Michelle Felipe is a 74 y.o. female who has been continued on warfarin for LV thrombus. Warfarin Indication & Goal Anticoagulation Indication/Goal Warfarin Indication: Left Ventricular Thrombus;Atrial fibrillation Reason DOAC not prescribed: Failure on Alternate Therapy Duration of Anticoagulation: Indefinite Target INR: 2-3 Warfarin Prior to Admission: Yes Prior to Admission Daily Warfarin Regimen: Warfarin 5mg daily + 7.5mg on Friday Prior to Admission Weekly Warfarin Dose: 37 mg Assessment Warfarin Drug Interactions Inhibitors of Warfarin Metabolism: HMG Co-A Inhibitors (Statins) Interacting medications started/stopped in past 72 hours?: No Any warfarin reversal given?: NoINR 2.5 appropriate for dosing based on goal of 2-3 Anticoagulation Assessment Warfarin Sensitivity Risk Factors: Elderly, age > 65 Warfarin Sensitivity Score: High (1 or more Warfarin Sensitivity Risk Factors) Nutritional Intake: Normal PO Intake Today's INR : Subtherapeutic Warfarin INR & Dose Trends Date INR Warfarin Dose (mg) Comments 11/20 2.5 11/21 5 mg (not given) DHT clogged, unable to give medication 11/22 1.6 5mg Plan Anticoagulation Plan Warfarin Pharmacist Managed?: Yes Warfarin Plan: Continue current dose Specify Warfarin Dose: Warfarin 5mg daily + 7.5mg on Tuesdays [facility] Warfarin Dosing Protocol Followed?: Yes Bridging Agent in Conjunction With Warfarin? : No INR Monitoring Frequency: Monitor INR daily Patient Education : Incomplete Will continue to follow patient's clinical progress daily. Bonny Cancino PharmD 11/22/2024 12:27 PM * Progress Notes - Patricia Lee RN - 11/22/2024 11:15 AM EDT Case Management Adult Initial Progress Note Michelle Felipe 74 y.o. female CSN: [id number] Admission: 11/20/2024 12:56 PM Primary Problem: Cerebrovascular accident (CVA) (CMS/[facility]) Marksmanship Instructor reviewed chart and spoke with patient and family bedside to complete this Initial CaseManagement Assessment. Provided introduction and information on CM role. Confirmed demographics in medical record are accurate. PCP: Pcp, No Emergency Contact: Extended Emergency Contact Information Primary Emergency Contact: Doron Felipe Relation: Spouse Secondary Emergency Contact: Ruthie Felipe Relation: Daughter Insurance: Primary Visit Coverage Payer Plan Sponsor Code Group Number Group Name [facility] MED[facility] MEDIC[facility] REPLACEMENT [id number] Primary Visit Coverage Subscriber Subscriber ID Subscriber Name Subscriber SSN Subscriber Address [id number] Michelle Felipe [id number] [place] [address] Patient information: Primary Caregiver: Self Accompanied by/Relationship: and daughter Support System: Immediate family Daily Living Activities: Functional Status: Independent Living Arrangements: Spouse/Significant other Type of Residence: Private residence [address] [facility] [address] Smoker in the Home?: No Current DME Provider: Alvaro Weiner Current DME: Equipment Currently Used at Home: wheelchair, manual, walker, rolling, shower chair, oxygen (reports she utilizes O2 @ 2L n/c continuous) Current DME Provider: Alvaro Weiner Income Information: Income Source: Retired Income/Expense Information: Income meets expenses Current Resources Utilized: None Housing Circumstances-Z Codes: Housing Circumstances (select all that apply): None Applicable Patient Referred to: Financial Resources: (none) Anticipated Discharge Date: 3-5 days Patient's Discharge Goal: subacute rehab then home w/family Assistance Available at Discharge: Family report they can provide 24h care if needed. State pt already has a paid caregiver during the day to assist with house chores and ADLs. Discharge Transport: pending medical need Follow Up Transport: per family Home Health / Home Infusion / Outpatient Dialysis Services: Yes, pt is current with [facility] in [place] for RN/PT/OT DME: Equipment Currently Used at Home: wheelchair, manual, walker, rolling, shower chair, oxygen (reports she utilizes O2 @ 2L n/c continuous) Living Will/Advance Directive/Power of Educational Institution President /Guardian: Have you reviewed your Advance Directive and is it valid for this stay?: Not applicable Advance Directive: Patient does not have advance directive Patient Requests Assistance: No Additional Comments: Chart reviewed and poc was discussed in am huddle. Pt currently pending INSULATOR CUTTER AND FORMER and PT/OT evals. DHT remains in place. PT/OT recs are subacute. Pt and family are agreeable. Referral process was discussed. Will send referrals when PT/OT notes are available. Will continue to follow. Patricia Lee RN billing auditor JESSI/Stroke * Progress Notes - Tanya Gaston - 11/22/2024 11:02 AM EDT Physical Therapy Evaluation Patient Name: Michelle Felipe Today's Date: 11/22/2024 PT Discharge Recommendations: Subacute rehab Equipment Recommended: Defer to facility History Michelle Felipe is a 74 y.o. female admitted 11/20/2024 for work-up of Cerebrovascular accident (CVA) (CMS/HCC). Hospital Course 1. Cerebrovascular accident (CVA), unspecified mechanism (CMS/HCC) Past Medical History Patient has no past medical history on file. Past Surgical History Patient has no past surgical history on file. Precautions Medical Precautions: Fall precautions Medical Precautions: SBP less than 180 Subjective RN and patient agreeable to patient participation in therapy session. Participants in Care Family/Caregiver Present: Yes Family/Caregiver: Spouse, Adult Daughter Program Professional: Not Applicable Presentation Oxygen Therapy: Supplemental oxygen O2 Delivery Method: Nasal cannula O2 Flow Rate (L/min): 2 L/min Lines and Tubes: Intravenous access, Telemetry ([employer]) Pre-Session: Supine, Head of bed elevated, Lines intact Pre-Session Comments: pain 8/10 low back Post-Session: Lines intact, RN notified, Chair alarm, Sitting in chair, Call light in reach Home Living/Set-Up Lives With: Spouse Home Type: House Home Adaptive Equipment: Rolling walker, shower chair, Wheelchair-manual, Bedside commode (O2) Home Layout: One level, Stairs to enter with rails Number of Stairs: 2 (single HR) Bathroom: Tub/Shower: Built-in shower seat, Walk-in shower, Grab bars, Handheld shower head Bathroom: Toilet: Tall Prior Level of Function Level of Mobility: Ambulatory- household only (about 40 feet) Mobility [place]: Independent gait with device (rolling walker) ADL Performance: Needs assistance (home health comes to house) Bathing: Needs device and assist (needs assist to wash hair, can wash upper body, needs assist to wash lower body, needs assist to wash bottom - shower chair) Upper Body Dressing: Independent Lower Body Dressing: Needs assist (needs assist to don socks and shoes, able to don own pants, performed sitting edge of bed) Grooming: Independent Toileting: Independent (with walker) Eating: Independent Home Management Skills: Needs assist (minimal cooking due to pain - has assist from caregiver) Patient/Family Goals Patient wants to get better and return home. Objective Pain Patient with no c/o pain. She was positioned for comfort and pressure relief at conclusion of session. Delirium Screening RASS: Alert and calm Confusion Assessment Method-ICU (CAM-ICU/PCAM-ICU) Feature 3: Altered Level of Consciousness: Negative Cognition Overall Cognitive Status: Impaired Arousal/Alertness: Appropriate responses to stimuli Mood/Behavior: Confused, Distractible, Alert Orientation Level: Oriented X4 Single Step Commands: 100% of the time, With repetition, With increased time Multi-Step Commands: 50% of the time, With increased time, With repetition Method of Communication: Verbal Safety Judgment: Poor awareness of safety precautions Awareness of Errors: Decreased awareness of errors Deficit Awareness: Decreased awareness of deficits Attention Span: Attends with cues to redirect Problem Solving: Assistance required to implement solutions, Assistance required to generate solutions, Assistance required to identify errors made Perseveration: Not present Vision - Complex Assessment Baseline Vision: Glasses distance, Glasses reading Patient Visual Report: wears glasses all the time Right Upper Extremity Examination RUE Assessment: Within Functional Limits Manual Muscle Testing - RUE: Within functional limits Light Touch: Right Upper Extremity: Intact Left Upper Extremity Examination LUE Assessment: Within Functional Limits Manual Muscle Testing - LUE: Within functional limits Light Touch: Left Upper Extremity: Intact Right Lower Extremity Examination RLE Assessment: Within Functional Limits Manual Muscle Testing - RLE: Within functional limits RLE Tone: Within Functional Limits Light Touch: Right Lower Extremity: Moderate impairment (baseline neuropathy in foot and lower leg) Left Lower Extremity Examination LLE Assessment: Within Functional Limits Manual Muscle Testing: Within functional limits LLE Tone: Within Functional Limits Light Touch: Left Lower Extremity: Mild impairment (baseline neuropathy in foot and lower leg) Perception/Coordination Coordination Movements are Fluid and Coordinated: No Bed Mobility Bed Mobility Exam: Rolling/Turning Level of [place]: Minimum assist (75% patient effort) Physical/Nonphysical Assist: Set-up required, Verbal Cues, Nonverbal cues (demo/gestures) Bed Mobility Exam: Scooting/Bridging Level of [place]: Moderate assist (50% patient's effort) Physical/Nonphysical Assist: Set-up required, Minimal cues, Nonverbal cues (demo/gestures), Verbal Cues Bed Mobility Exam: Supine to Sit Level of [place]: Minimum assist (75% patient's effort) (to the left) Physical/Nonphysical Assist: Nonverbal cues (demo/gestures), Verbal Cues, Minimal cues Transfers Transfer Exam: Sit to stand Level of [place]: Minimum assist (75% patient's effort) Physical/Nonphysical Assist: Additional assist utilized for safety, Minimal cues, Nonverbal cues (demo/gestures), Verbal Cues Assistive Device: Walker, rolling Transfer Exam: Stand to Sit Level of [place]: Minimum assist (75% patient's effort) Physical/Nonphysical Assist: Additional assist utilized for safety, Verbal Cues, Nonverbal cues (demo/gestures), Minimal cues Assistive Device: Walker, rolling Transfer Exam: Bed to Chair/Chair to Bed Level of [place]: Moderate assist (50% patient's effort) Physical/Nonphysical Assist: Additional assist utilized for safety, Verbal Cues, Nonverbal cues (demo/gestures), Minimal cues Type of Transfer: Sidesteps Assistive Device: Walker, rolling Ambulation Device: Rolling walker Apparatus: Left, Right Assistance: Moderate assistance, Additional assist utilized for safety Distance : 5 feet bed to chair Ambulation Comments: PT provided RW for UE support and balance. Mod verbal cues for sequencing and safety. Cueing to turn and attend to chair to sit. Limited endurance and cognitive deficits prevented further distance. Balance Static Sitting Balance Static Sitting-Balance Support: Feet unsupported, Right upper extremity support, Left upper extremity support Static Sitting-Level of Assistance: Contact guard Dynamic Sitting Balance Dynamic Sitting-Balance Support: Feet unsupported Level of Assistance: Minimum assistance Static Standing Balance Static Standing-Balance Support: Left upper extremity support, Right upper extremity support Static Standing-Level of Assistance: Minimum assistance Dynamic Standing Balance Dynamic Standing-Balance Support: Right upper extremity support, Left upper extremity support Dynamic Standing Level of Assistance: Moderate assistance Therapeutic Activity (25 minutes) PT provided supervision and verbal cues and increased time to complete tasks. See bed mobility, balance, transfers and ambulation. Standardized Assessments Standardized Assessments Standardized Assessments: [facility] 6-Clicks Mobility Assessment, Pre-MRS [facility] 6-Clicks Mobility Assessment Difficulty patient has turning over in bed (including adjusting bedclothes, sheets, and blankets)?:A lot Difficulty patient has sitting down on and standing up from a chair with arms (wheelchair, bedside commode, etc.)?: A lot Difficulty patient has moving from lying on back to sitting on the side of the bed?: A lot How much help does the patient need moving to and from a bed to a chair (including a wheelchair)?: A lot How much help does the patient need to walk in hospital room?: A lot How much help does the patient need climbing 3-5 steps with a railing?: Unable [facility] 6-Clicks Mobility Assessment Total : 11 Pre-Stroke MRS Pre-Stroke Modified [place] Scale : The patient had moderate disability, requiring some external help but able to walk without the assistance of another individual. Assessment Patient very pleasant and participated well in therapy session. She was able to walk short distance. Limited by cognitive impairments, functional activity tolerance and imbalance. She is currently a high fall risk. Not functioning at baseline level. Family very supportive. Patient will benefit fromskilled PT services to address strength, balance, endurance and progressive functional mobility. Impairments: Decreased endurance, ventilation, and/or gas exchange, Impaired gait dynamics/performance, Impaired postural/trunk control, Decreased strength, Impaired attention/alertness, Impaired locomotion, Impaired motor coordination/control, Pain, Impaired cognition/safety awareness, Impaired fun ctional mobility/transfers, Impaired sensation/sensory processing, Impaired executive functioning, Impaired balance Activity Limitations: Inability to sit independently, Inability to ambulate community distances, Inability to complete ADLs independently, Inability to ambulate household distances, Inability to ambulate independently, Inability to transfer independently, Impaired attention/alertness Participation Restrictions: Self-care, Home management, Community leisure Activity Tolerance: Tolerates 30 min activity with multiple rests Evaluation/Treatment Tolerance: Patient limited by fatigue Diagnosis: Stroke work-up with resultant impaired functional mobility and independence Rehab Potential: Good, to achieve stated therapy goals Eval Complexity History Profile: 1 - 2 personal factors and/or comorbidities Clinical Presentation: Evolving clinical presentation with changing characteristics Clinical Decision Making: Moderate complexity PT Recommendations Discharge Destination: Subacute rehab Discharge Equipment: Defer to facility Plan Planned PT Interventions Balance training, Gait training, Bed mobility training, Motor coordination training, Transfer training, Wheelchair management/propulsion training, Joint mobilization, Lumbar stabilization, Manual therapy techniques, Postural re- education, Neuromuscular re-education, Orthotic fitting/training, ROM, S trengthening, Stretching, Functional Mobility, Caregiver training PT Frequency 2 - 5 times per week PT Duration 2 weeks Goals PT GOAL DETAILS Time Frame PT Goal 1: Patient will perform supine to and from sit with CGA. 2 weeks PT Goal 2: Patient will perform sit to and from stand with RW or AAD with CGA. 2 weeks PT Goal 3: Patient will walk 40 feet with RW on level surfaces with CGA. 2 weeks PT Goal 4: Patient and family will participate in discharge planning to include family teaching, referrals, equipment ordering and HEP. 2 weeks Written by Tanya Gaston on 11/22/24 at 11:26 AM. * Progress Notes - Shannen Pedroza - 11/22/2024 11:00 AM EDT OCCUPATIONAL THERAPY EVALUATION PATIENT DATA Patient Name Michelle Felipe Session Date 11/22/2024 OT Discharge Recommendations Subacute rehab Equipment Recommendations Defer to facility Discharge Transportation Recommendations Car HISTORY Michelle Felipe is 74 y.o. female admitted 11/20/2024 for work-up of Cerebrovascular accident (CVA) (CMS/HCC). NIH Stroke Scale: 1 Hospital Course 1. Cerebrovascular accident (CVA), unspecified mechanism (CMS/HCC) Procedures (if applicable) Past Medical History Patient has no past medical history on file. Past Surgical History Patient has no past surgical history on file. MOBILITY GUIDELINES Activity: Stroke Stroke Guidelines: General - No Restrictions. NOT receving tPA Extremity Precautions: No Extremity Precautions Other mobility precautions: No other precautions required PRECAUTIONS Medical Precautions Yes Medical Precautions: Fall precautions Medical Precautions: SBP less than 180 SUBJECTIVE PARTICIPANTS IN CARE Patient/Caregiver Comments Pt. Agreeable to OT/PT evaluations Visitors Present Yes Spouse, Adult Daughter Program Professional (if applicable) PRESENTATION Oxygen Supplemental oxygen Nasal cannula 2 L/min Telemetry Yes Lines and Tubes Feeding Tube Gastric 10 Fr. Right nare (Active) Peripheral IV 11/22/24 Left;Anterior;Lower Forearm (Active) Pre-Session Supine, Head of bed elevated, Lines intact pain 8/10 low back Post-Session Lines intact, RN notified, Chair alarm, Sitting in chair, Call light in reach Bracing (if applicable) HOME LIVING/SET-UP Lives With Spouse Home Type House Home Equipment Rolling walker, shower chair, Wheelchair-manual, Bedside commode (O2) Home Layout One level, Stairs to enter with rails Number of Stairs: 2 (single HR) Bathroom Layout Built-in shower seat, Walk-in shower, Grab bars, Handheld shower head Bathroom: Toilet: Tall Additional Comments PRIOR LEVEL OF FUNCTION Receives help from Level of Mobility Ambulatory- household only (about 40 feet) Mobility [place] Independent gait with device (rolling walker) History of Falls ADL Performance ADL Performance: Needs assistance (home health comes to house) Bathing: Needs device and assist (needs assist to wash hair, can wash upper body, needs assist to wash lower body, needsassist to wash bottom - shower chair) Upper Body Dressing: Independent Lower Body Dressing: Needs assist (needs assist to don socks and shoes, able to don own pants, performed sitting edge of bed) Grooming: Independent Toileting: Independent (with walker) Eating: Independent Home Management Skills:Needs assist (minimal cooking due to pain - has assist from caregiver) PATIENT/FAMILY GOALS Pt. and family agreeable to OT/PT evaluations OBJECTIVE PAIN 8/10 low back pain and has chronic low back pain per patient and family. RN aware. DELIRIUM SCREENING RASS: Alert and calm Confusion Assessment Method-ICU (CAM-ICU/PCAM-ICU) Feature 3: Altered Level of Consciousness: Negative COGNITION Overall Cognitive Status Impaired Arousal/Alertness Appropriate responses to stimuli Mood/Behavior Confused, Distractible, Alert Orientation Oriented X4 Command Following Single Step Commands: 100% of the time, With repetition, With increased time Multi-Step Commands: 50% of the time, With increased time, With repetition Method of Communication Verbal Additional Observations Safety Judgment: Poor awareness of safety precautions Awareness of Errors: Decreased awareness of errors Deficit Awareness: Decreased awareness of deficits Attention Span: Attends with cues to redirect Problem Solving: Assistance required to implement solutions, Assistance required to generate solutions, Assistance required to identify errors made Perseveration: Not present VISION Baseline Vision Glasses distance, Glasses reading Current Vision (if different) Patient Visual Report: wears glasses all the time PERCEPTION Inatttention/Neglect (if assessed) Initiation (if assessed) Motor Planning (if assessed) COORDINATION Gross Motor Coordination Movements are Fluid and Coordinated: No Fine Motor Coordination Fine Motor Coordination Examination Left Hand Thumb/Finger Opposition Skills: Mild impairment Right Hand Thumb/Finger Opposition Skills: Normal performance Left Hand, Manipulation of Objects: Normal performance Right Hand, Manipulation of Objects: Normal performance Left Hand, Diadochokinesis Skills: Normal perfomance Right Hand, Diadochokinesis Skills: Normal performance RIGHT UPPER EXTREMITY EXAMINATION Range of Motion Within Functional Limits Manual Muscle Testing Within functional limits Light Touch Sensation Intact Pain Sensation Muscle Tone LEFT UPPER EXTREMITY EXAMINATION Range of Motion Within Functional Limits Manual Muscle Testing Within functional limits Light Touch Sensation Intact Pain Sensation Muscle Tone RIGHT LOWER EXTREMITY EXAMINATION Range of Motion Within Functional Limits Manual Muscle Testing Within functional limits Light Touch Sensation Moderate impairment (baseline neuropathy in foot and lower leg) Pain Sensation Muscle Tone Within Functional Limits LEFT LOWER EXTREMITY EXAMINATION Range of Motion Within Functional Limits Manual Muscle Testing Within functional limits Light Touch Sensation Mild impairment (baseline neuropathy in foot and lower leg) Pain Sensation Muscle Tone Within Functional Limits BED MOBILITY Level of [place] Physical/Non-physical Assist Adaptive Equipment Utilized Rolling/ Turning Minimum assist (75% patient effort) Set-up required, Verbal Cues, Nonverbal cues (demo/gestures) Scooting/ Bridging Moderate assist (50% patient's effort) Set-up required, Minimal cues, Nonverbal cues (demo/gestures), Verbal Cues Supine to Sit Minimum assist (75% patient's effort) (to the left) Nonverbal cues (demo/gestures), Verbal Cues, Minimal cues Sit to Supine Comments TRANSFERS Level of [place] Physical/Non- physical Assist Adaptive Equipment Utilized Sit to Stand Minimum assist (75% patient's effort) Additional assist utilized for safety, Minimal cues, Nonverbal cues (demo/gestures), Verbal Cues Walker, rolling Stand to sit Minimum assist (75% patient's effort) Additional assist utilized for safety, Verbal Cues, Nonverbal cues (demo/gestures), Minimal cues Walker, rolling Bed to Chair Moderate assist (50% patient's effort) Sidesteps Additional assist utilized for safety, Verbal Cues, Nonverbal cues (demo/gestures), Minimal cues Walker, rolling Toilet Transfer Shower Transfer Interventions FUNCTIONAL MOBILITY Level of [place] Distance Adaptive Equipment Utilized Ambulation Moderate assistance, Additional assist utilized for safety 5 feet bed to chair Rolling walker Left, Right Comments BALANCE Postural Appearance INTERVENTIONS Level of [place] Balance Support Interventions Static Sit Contact guard Feet unsupported, Right upper extremity support, Left upper extremity support Dynamic Sit Minimum assistance Feet unsupported Static Stand Minimum assistance Left upper extremity support, Right upper extremity support Dynamic Stand Moderate assistance Right upper extremity support, Left upper extremity support INTERVENTIONS SELF-CARE Treatment Minutes (if applicable) 15 Comments Level of [place] Adaptive Equipment Utilized Interventions Feeding Grooming Bathing Upper Body Dressing Lower Body Dressing While sitting edge of bed pt. was able to grasp bilateral socks hwoever reports that she does not do it at home and was dep a to don bilateral socks with min A for dynamic sitting balance. Toileting Pt. performed sit to stand with min A x 1 + 1 and bed to chair transfer mod A x 1 + 1 in preparation for toilet transfers. [facility] Management Community Re-Entry Therapeutic Exercise (10 minutes) Access Code: [email or web address] URL: [email or web address] Date: 11/22/2024 Prepared by: Shannen PedrozaExercises - Seated Elbow Flexion and Extension AROM - 2 x daily - 7 x weekly - 2 sets - 10 reps - Seated Punches - 2 x daily - 7 x weekly - 2 sets - 10 reps - Seated Shoulder Flexion Full Range - 2 xdaily - 7 x weekly - 2 sets - 10 reps - Seated Shoulder Abduction - 2 x daily - 7 x weekly - 2 sets- 10 reps Pt. Performed each exercise while seated in bedside chair and was demonstrated by therapist to family and patient and she was able to perform. Exercises were given to patient and family on a handout. STANDARDIZED ASSESSMENTS Aleida Index Feeding: Unable Bathing: Dependent Grooming: Needs help with personal care Dressing: Dependent Bowels: Continent Bladder: Incontinent, or catheterized and unable to manage alone Toilet Use: Dependent Transfers (Bed to Chair and Back): Major help (one or two people, physical), can help Mobility (on Level Surfaces): Immobile or < 50 yards Stairs: Unable Total Score: 15 Pre-Stroke MRS Pre-Stroke Modified T[place]as Scale : The patient had moderate disability, requiring some external help but able to walk without the assistance of another individual. ASSESSMENT Pt. With decreased coordination in left UE and decreased sitting and standing balance impacting independence with functional transfers and ADL's. Pt. With decreased command following impacting independence with functional tasks. Pt. With decreased functional endurance also impacting independence with functional mobility. Pt is unable to access a bathroom, enter or exit the home, or manage medications safely, placing them at high risk for readmission. Pt requires assistance with all aspects of transfers, mobility, and self-care. Additionally, pt is at high risk for falls and is currently unable to care for self independently. OT recommends subacute rehab when pt is medically ready for discharge. Subacute rehabilitation will provide pt with the appropriate amount of rehab intensity to maximize her safety and independence, functional mobility and occupations that they value. Pt presents that they will tolerate 1-2-hours of therapy per day and will benefit from a multi-disciplinary approach. Pt would benefit from further OT services while in hospital setting to aid with aforementioned areas of need and discharge transition. OT FINDINGS Impaired ADL performance, Impaired IADL performance, Impaired judgment during ADL, Impaired attention, Impaired cognition, Decreased endurance/ventilation/gas exchange, Impaired sensation/sensory processing, Impaired functional mobility, Impaired fine motor control/coordination, Impaired balance, Impaired postural/trunk control, Impaired motor planning Evaluation/ Treatment Tolerance (if identified) Rehab Potential (if identified) Good, to achieve stated therapy goals Barriers to Discharge (if identified) EVAL COMPLEXITY Occupational Profile Review of medical/therapy records and extensive additional review of physical,cognitive, or psychosocial history Performance Deficits Activities of daily living (ADLs), Instrumental activities of daily living (IADLs), Social participation, Motor skills, Social interaction skills, Habits, Routines, Roles, Personal, Physical, Social Clinical Decision Making High Overall Eval Complexity Complex OT RECOMMENDATIONS Discharge Destination Subacute rehab Discharge Equipment Defer to facility Recommendations for Referral to Another Service (if applicable) PLAN Planned OT Interventions ADL retraining, IADL retraining, Balance training, Bed mobility Training, Fine motor coordination training, Motor coordination training, Neuromuscular re- education, Transfer training, Functional mobility, Caregiver education, Cognitive retraining, Feeding skills OT Frequency 2 - 5 times per week OT Duration 2 weeks OT GOALS OT GOAL DETAILS Time Frame OT Goal 1: Pt. will perform UE dressing with min A sitting edge of bed. 2 weeks OT Goal 2: Pt. will perform toilet transfers with min A. 2 weeks OT Goal 3: Pt. will perform grooming sitting edge of bed with SBA. 2 weeks Written by Shannen Pedroza on 11/22/24 at 11:22 AM. * Nursing Note - Chai Merrill - 11/22/2024 10:22 AM EDT Stroke Team Interdisciplinary Transition of Care Huddle (STIMAIDA) Patient: Michelle Ag Care Team: Patient Care Team: PcpHeather as PCP - General (Family Medicine) Staff Present: Marksmanship Instructor, Medical Appliance Maker, Pharmacy, Speech Therapy, Physical/Occupational Therapy, Neurology Resident, Neuroscience Nurse Navigator, Senior Living Sales Counselor, and Stroke Sales Administrator Level of Care: Progressive Status: stable Likely TIA Pending PT/OT Chai Merrill 11/22/24 10:22 AM * Procedures - Alex Grewal RN - 11/22/2024 10:02 AM EDTAssociated Order(s): Insert peripheral IV Insert peripheral IV Performed by: Alex Grewal RN Authorized by: Cirilo Majano MD Hand hygiene: Hand hygiene performed prior to insertion Inserted using aseptic techniques: Yes Preparation: Skin prepped with chg Orientation: Left, anterior and lower Location: Forearm Catheter placed: Peripheral IV Catheter size: 20g/1.16in Line Technique: Ultrasound Guidance Number of attempts: 1 IV flushes: Without difficulty and positive blood return noted and IV luer locked Patient tolerance: Patient tolerated the procedure well and there were no complications Patient comfort measures used: Distraction and position of comfort IV site covered with: Transparent semipermeable dressing Comments: Labs drawn with IV insertion * Progress Notes - Floresita Karimi, [facility]INSULATOR CUTTER AND FORMER - 11/22/2024 9:18 AM EDT Speech Language Pathology Clinical Swallow Re-Evaluation Patient Name: Michelle Felipe Age: 74 y.o. Today's Date: 11/22/2024 Recommendations: Continue NPO w/ DHT for nutrition/hydration/medication. Ice chips OK after oral care. Oral care qh4. Recommend MBS to further assess swallow function. History/Background Information Michelle Felipe is a 74 y.o. female with PMH of chronic LV thrombus and atrial fibrillation on warfarin, prior stroke with no residual deficit, hypertension, diabetes, hyperlipidemia, hypothyroidism, chronic hypoxic respiratory failure on 2 L nasal cannula at home, HFpEF, SLE. Stroke neurology was consulted as a stroke alert for slurred speech, and left facial droop. 11/21 Initial CSE: Ice chips OK. Otherwise NPO. Re-eval tomm as schedule allows. Problem List[1] Past Medical History[2] Surgical History[3] Current diet: NPO diet NPO except: Sips of clear liquids, Sips with meds Tube Feeding Tube feeding formula: Diabetisource AC; Route of feeding: Nasogastric; Tube feeding schedule: Continuous; Tube feeding continous initial Rate (ml/hr): 20; Advance by (ml): 10; Advance every (hr): 4; Tube feeding continuous goal rate (... Subjective Michelle Felipe was drowsy but cooperative and agreeable. Pt's present at bedside and emphasized concerns r/t pt's blood sugar (team informed). Identified by name and date of . RN providedverbal consent for evaluation. Dysarthria persists, but has improved since admission per . Objective Predisposing risk factors: DM, chronic hypoxic respiratory failure, HFpEF Clinical signs of possible chronic dysphagia: n/a Precipitating risk factors: acute right CVA + dysarthria Current diet: NPO diet NPO except: Sips of clear liquids, Sips with meds Tube Feeding Tube feeding formula: Diabetisource AC; Route of feeding: Nasogastric; Tube feeding schedule: Continuous; Tube feeding continous initial Rate (ml/hr): 20; Advance by (ml): 10; Advance every (hr): 4; Tube feeding continuous goal rate (... Respiratory Status: NC 2L WBC: 7.31 Vitals: 11/22/24 0738 BP: Pulse: Resp: Temp: 36.4 ??C (97.5 ??F) SpO2: Relevant Imaging: XR Chest 11/21 Moderate right and small left pleural effusions with lower lobe opacities. CTA H: 1.Thready nonopacified appearance of the left cervical and intradural vertebral artery which is favored to be related to chronic dissection or developmentally hypoplastic. 2.Otherwise, no intracranial proximal large vessel occlusion. 3.Moderate left subclavian artery origin stenosis. 4.No high-grade stenosis is present within the visualized cervical carotid arteries. 5.Severe left and moderate right intracranial ICA stenosis and mild right intradural vertebral artery stenosis secondary to atherosclerosis. 6.Degenerative cervical sclerosis and ankylosis in the spine, erosive changes within the bilateral temporomandibular joint with capsular calcifications in the right TMJ and near the craniocervical junction. These findings could be seen in the setting of rheumatoid arthritis. 7.Moderate right and small left pleural effusion with groundglass opacities. Recommend dedicated chest imaging for further evaluation. Scales: - Atkins Coma Scale Score: initial 15, current 15 - NIH: initial 2, current 1 Direction Following: Follows 1 step directions, Follows 2 step directions, and Independently Oral Mechanism Report: Dentition: dental caries Oral hygiene: WFL Focused Cranial Nerve Exam: Trigeminal Nerve (V): facial sensation intact and mandible strength/ROM intact Facial Nerve (VII): buccinator strength seemingly impaired and flattened nasolabial fold left Vagus (X): dysphonia Spinal Accessory (XI): head turn left impaired Hypoglossal Nerve (XII): seemingly reduced strength Comments: L facial droop, dysarthric speech, midline groove on hard palate; subjective pt report ofchronic L peripheral vision deficit Laryngeal Function Exam: Secretion Management: wet / gurgly vocal quality after PO trial of puree Vocal Quality: hoarse, harsh, and reduced intensity MPT: 7 s Cough: - Volitional not assessed - Reflexive weak Oral Care Completed: no Oral Feeding Trials: Positionin-90 degrees Feeding assistance: intermittent assistance from INSULATOR CUTTER AND FORMER or caregiver Consistencies Administered: ice chips, thin liquid via teaspoon, puree via teaspoon, and dry solid consistency Oral Stage: Prolonged mastication, reduced oral clearance (increased residue on L side), adequate labial seal Pharyngeal Stage: Overt s/s of aspiration; cough w/ thin liquids + puree 90 mL water test (Lindy & Nirur, 2014): not tested this date Assessment Summary: Patient presents with risk factors for dysphagia, likely acute, r/t acute rught CVA + CN deficits + motor speech deficits + s/s of oral dysphagia + overt s/s of aspiration. Instrumentation is indicated to further assess the oropharyngeal swallow and to develop an effective treatment regimen. Complete oral care qh4 to reduce risk of aspiration PNA. Pt is OK for ice chips to facilitate a healthy oral microbiome and to reduce disuse atrophy. Prognosis: Pending MBS for improved function with skilled speech pathology services focusing on stated goals. Patient Education: Pt and her were educated on the results of the evaluation and are agreeable to POC. Results and recommendations of this evaluation were communicated to: RN/Team Plan / Recommendations F/u Imaging: MBS Goals Participate in MBS Participate in oral infection control program [1] Patient Active Problem List Diagnosis Acute ischemic stroke (CMS/HCC) [2] No past medical history on file. [3] No past surgical history on file. * Care Plan - Tameka Siegel RN - 11/22/2024 8:31 AM EDT Problem: Adult Inpatient Plan of Care Goal: Patient-Specific Goal (Individualized) Flowsheets (Taken 11/21/20241999 by Nneka Curran RN) Patient/Family-Specific Goals (Include Timeframe): pt. will remain free from falls this shift Individualized Care Needs: safety Anxieties, Fears or Concerns: safety Problem: Fall Injury Risk Goal: Absence of Fall and Fall-Related Injury Intervention: Identify and Manage Contributors Flowsheets (Taken 11/22/2024153 by Nneka Curran, RN) Medication Review/Management: medications reviewed Problem: Stroke, Ischemic (Includes Transient Ischemic Attack) Goal: Optimal Coping Intervention: Support Psychosocial Response to Stroke Flowsheets (Taken 11/22/2024153 by Nneka Curran, RN) Family/Support System Care: caregiver stress acknowledged involvement promoted self-care encouraged Problem: Skin Injury Risk Increased Goal: Skin Health and Integrity Intervention: Optimize Skin Protection Flowsheets (Taken 11/22/2024 0800) Activity Management: activity adjusted per tolerance Problem: Mobility Impairment Goal: Optimal Mobility Intervention: Optimize Mobility Flowsheets (Taken 11/22/2024 0800) Activity Management: activity adjusted per tolerance Problem: Swallowing Impairment Goal: Optimal Eating and Swallowing Intervention: Optimize Eating and Swallowing Flowsheets (Taken 11/22/2024 015 by Nneka Curran RN) Aspiration Precautions: NPO pending swallow screening/evaluation * Care Plan - Nneka Curran RN - 11/22/2024 1:57 AM EDT Problem: Adult Inpatient Plan of Care Goal: Plan of Care Review Flowsheets (Taken 11/22/2024153) Progress: no change Plan of Care Reviewed With: patient spouse Goal: Patient-Specific Goal (Individualized) Flowsheets (Taken 11/21/20241999) Patient/Family-Specific Goals (Include Timeframe): pt. will remain free from falls this shift Individualized Care Needs: safety Anxieties, Fears or Concerns: safety Goal: Absence of Hospital-Acquired Illness or Injury Intervention: Identify and Manage Fall Risk Flowsheets (Taken 11/22/2024 0000) Safety Promotion/Fall Prevention: activity supervised safety round/check completed Intervention: Prevent Skin Injury Flowsheets Taken 11/22/2024153 Skin Protection: incontinence pads utilized Taken 11/22/2024 Body Position: turned Intervention: Prevent and Manage VTE (Venous Thromboembolism) Risk Flowsheets (Taken 11/22/2024 0000) VTE Prevention/Management: bilateral SCDs (sequential compression devices) on Intervention: Prevent Infection Flowsheets (Taken 11/22/2024153) Infection Prevention: cohorting utilized environmental surveillance performed equipment surfaces disinfected hand hygiene promoted rest/sleep promoted single patient room provided Goal: Optimal Comfort and Wellbeing Intervention: Provide Person-Centered Care Flowsheets (Taken 11/22/2024153) Trust Relationship/Rapport: care explained questions encouraged thoughts/feelings acknowledged Problem: Fall Injury Risk Goal: Absence of Fall and Fall-Related Injury Intervention: Identify and Manage Contributors Flowsheets (Taken 11/22/2024 0154) Medication Review/Management: medications reviewed Self-Care Promotion: BADL personal objects within reach Intervention: Promote Injury-Free Environment Flowsheets (Taken 11/22/2024 0000) Safety Promotion/Fall Prevention: activity supervised safety round/check completed Problem: Stroke, Ischemic (Includes Transient Ischemic Attack) Goal: Optimal Coping Intervention: Support Psychosocial Response to Stroke Flowsheets (Taken 11/22/2024 0154) Supportive Measures: active listening utilized self-reflection promoted Family/Support System Care: caregiver stress acknowledged involvement promoted self-care encouraged Goal: Effective Bowel Elimination Intervention: Promote Effective Bowel Elimination Flowsheets (Taken 11/22/2024 015) Bowel Elimination Management: hygiene measures promoted relaxation techniques promoted Bowel Program: maintenance program followed Goal: Optimal Cerebral Tissue Perfusion Intervention: Protect and Optimize Cerebral Perfusion Flowsheets (Taken 11/22/2024153) Sensory Stimulation Regulation: auditory stimulation minimized care clustered lighting decreased quiet environment promoted tactile stimulation minimized visual stimulation minimized Cerebral Perfusion Promotion: blood pressure monitored Goal: Optimal Cognitive Function Intervention: Optimize Cognitive Function Flowsheets (Taken 11/22/2024 015) Sensory Stimulation Regulation: auditory stimulation minimized care clustered lighting decreased quiet environment promoted tactile stimulation minimized visual stimulation minimized Reorientation Measures: clock in view Environment Familiarity/Consistency: familiar objects from home provided Goal: Improved Communication Skills Intervention: Optimize Communication Skills Flowsheets (Taken 11/22/2024153) Communication Enhancement Strategies: call light answered in person Goal: Optimal Functional Ability Intervention: Optimize Functional Ability Flowsheets Taken 11/22/2024153 Self-Care Promotion: BADL personal objects within reach Taken 11/22/2024 Activity Management: activity adjusted per tolerance Goal: Optimal Nutrition Intake Intervention: Promote and Optimize Fluid and Food Intake Flowsheets (Taken 11/22/2024153) Nutrition Interventions: diet adjusted Goal: Effective Oxygenation and Ventilation Intervention: Optimize Oxygenation and Ventilation Flowsheets Taken 11/22/2024153 Airway/Ventilation Management: airway patency maintained Taken 11/22/2024 Head of Bed (HOB) Positioning: HOB at 30 degrees Goal: Improved Sensorimotor Function Intervention: Optimize Range of Motion, Motor Control and Function Flowsheets Taken 11/22/2024153 Spasticity Management: positioned with supportive device Positioning/Transfer Devices: repositioning sheet pillows Taken 11/22/2024 Range of Motion: active ROM (range of motion) encouraged Intervention: Optimize Sensory and Perceptual Ability Flowsheets (Taken 11/22/2024 015) Pressure Reduction Techniques: weight shift assistance provided Goal: Safe and Effective Swallow Intervention: Optimize Eating and Swallowing Flowsheets (Taken 11/22/2024153) Aspiration Precautions: NPO pending swallow screening/evaluation Goal: Effective Urinary Elimination Intervention: Promote Effective Bladder Elimination Flowsheets (Taken 11/22/2024153) Urinary Elimination Promotion: absorbent pad/diaper use encouraged frequent voiding encouraged positioned for ease of voiding Problem: Skin Injury Risk Increased Goal: Skin Health and Integrity Intervention: Optimize Skin Protection Flowsheets Taken 11/22/2024 015 Pressure Reduction Techniques: weight shift assistance provided Skin Protection: incontinence pads utilized Taken 11/22/2024 Activity Management: activity adjusted per tolerance Head of Bed (HOB) Positioning: HOB at 30 degrees Intervention: Promote and Optimize Oral Intake Flowsheets (Taken 11/22/2024153) Nutrition Interventions: diet adjusted Problem: Mobility Impairment Goal: Optimal Mobility Intervention: Optimize Mobility Flowsheets Taken 11/22/2024153 Positioning/Transfer Devices: repositioning sheet pillows Taken 11/22/2024 0000 Activity Management: activity adjusted per tolerance * Significant Event - Andra Moscoso MD - 11/21/2024 7:56 PM EDT Around 1629, nursing messaged me that Mrs. Felipe's O2 sat was 70 and dropped down to the 60s. She was subsequently placed on a non-rebreather mask and the HOB was elevated. During the rapid response, the rapid team suctioned a mucus plug and sats improved into the 90s. A CXR was ordered in addition to q6h albuterol/Mucomyst nebulizers. Andra Moscoso MD Internal Medicine PGY-1 * Nursing Note - Lynn Mack RN - 11/21/2024 6:56 PM EDT Around 1629 today, Mrs Felipe O2 sats went down to the 60s. Pt was placed on a non-rebreather. Rapid Response, Provider and Resp Therapy notified. Mrs Felipe was able to communicate during this time.EMV remained the same, no neuro changes noted. She did state that she was having trouble breathing.Rapid suctioned a mucus plug from the patient and almost immediately started breathing better and her sats went back up into the 90s. She was given a hypertonic NEB and was able to go back on 2L O2 per NC. A chest x-ray was ordered per team. * Significant Event - Sujit Brumfield RN - 11/21/2024 5:24 PM EDT 11/21/241644 Event/Notification Description Event Location [facility] and Room Number 5.123 Reason for Rapid Response Team notification Desaturation / NRB Is the patient a DNR? No Type of Event Decline Type of Decline Respiratory Method of Notification Nurse (specify) Vitals Heart Rate 62 Heart Rate Source Monitor Resp 24 SpO2 (!) 87 % Onset and Notification Specifics Time JUNIOR PHP DEVELOPER RN Notified 1632 Time JUNIOR PHP DEVELOPER RN Arrived 1642 Additional JUNIOR PHP DEVELOPER/ Other Clinicians Present ASlatin RN Respiratory Signs/Symptoms and Interventions Respiratory Signs/Symptoms Identified Acute change in respiratory effort;Acute change in oxygenation Acute Change in Respiratory Effort Change in respiratory rate;Accessory muscles;Adventitious breathsounds (NS neb treatment and NT Sxn X3) Acute Change in Oxygenation Increased O2 requirements;FiO2 >40%;SPO2 <90%;Pale cool skin (NS neb treatment) Respiratory Interventions Initiated/Orders Received Elevate HOB;Pulmonary toilet;Suction;Nebs Monitoring Data Monitoring Comments JUNIOR PHP DEVELOPER contacted for acute change in oxygen requirements and increased WOB. Pt wasplaced on NRB. Upon arrival to bedside, HOB elevated, pt is alert and able to speak 1-3 word sentences. SP02 not picking up. Pt is pale in appearance and skin is cool to touch. Pt on NRB. Pt was NT suctioned X3 / NS lavage / NS neb treatment started. Thick brown mucus plug removed with suctioning. Pt now breathing better, SP02 97%, speaking full sentences. and pt was placed on 3L/NC. Will continue to monitor at this time. Contact MD and/or JUNIOR PHP DEVELOPER with questions, concerns or change in pt condition.JUNIOR PHP DEVELOPER dismissed. Rapid Response Outcome Survival Yes Rapid Response Termination Due to Patient remained on floor Additional Observation/Interventions Neb treatment, NT sxn * Progress Notes - Jackelyn Godinez, PharmD - 11/21/2024 3:10 PM EDT Antithrombosis Monitoring: Warfarin Michelle Felipe is a 74 y.o. female who has been continued on warfarin for LV thrombus. Warfarin Indication & Goal LV thrombus (follows at [facility]) INR goal 2-3 Warfarin 5 mg everyday except Tuesdays Warfarin 7.5 mg every Friday Assessment INR 2.5 appropriate for dosing based on goal of 2-3 Warfarin INR & Dose Trends Date INR Warfarin Dose (mg) Comments 11/20 2.5 11/21 5 mg Initiate home dose Plan Plan to start home dose of warfarin 5 mg daily (except Tuesdays) tonight (Friday, 11/21). INR ordered with am labs to evaluate dosing. Transitions of Care Will continue to follow patient's clinical progress daily. Jackelyn Godinez, PharmD 11/21/2024 3:06 PM * Progress Notes - Babs Alvarez MD - 11/21/2024 2:13 PM EDT Stroke Wards Progress Note Summary Michelle Felipe is a 74 y.o. female with PMH of chronic LV thrombus and atrial fibrillation on warfarin, prior stroke with no residual deficit, hypertension, diabetes, hyperlipidemia, hypothyroidism, chronic hypoxic respiratory failure on 2 L nasal cannula at home, HFpEF, SLE. Stroke neurology was consulted as a stroke alert for slurred speech, and left facial droop. LKN was around 11:45 a.m. on 11/20/2024. -NIHSS on initial exam was 2. -CTH showed no acute intracranial abnormality. 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 -Thrombolytics were not administered due to history of anticoagulant use in the last 24 hours. Thrombectomy was not performed due to no large vessel occlusion. Subjective She was pleasantly interactive this morning, hard of hearing. was at bedside and gave history. Her daughter, later on in the day at bedside mentioned that she had a seizure like episode with tonic posturing before having the weakness and slurring of speech. Objective Vitals: 11/21/24 0316 11/21/24 0800 11/21/24 1014 11/21/24 1200 BP: (!) 155/56 (!) 174/59 (!) 174/59 (!) 158/62 BP Location: Left arm Right arm Right arm Patient Position: Lying Lying Lying Pulse: 60 60 60 60 Resp: 17 19 Temp: (!) 36.2 ??C (97.2 ??F) 36.5 ??C (97.7 ??F) 36.7 ??C (98.1 ??F) TempSrc: Oral Oral Oral SpO2: 92% (!) 88% 96% Weight: 53.4 kg (117 lb 11.6 oz) Height: 1.626 m (5' 4.02 ) Temp (72hrs), Av.6 ??C (97.9 ??F), Min:36.2 ??C (97.2 ??F), Max:36.8 ??C (98.3 ??F) Physical Exam Constitutional: Patient in no acute distress. Patient appears stated age. Ears, Nose, Mouth, Throat: Mucous membranes appear moist. No appreciable hearing impairment. Nares patent. Eyes: Anicteric sclera. No appreciable conjunctival injection. Cardiovascular: Appears well-perfused. No appreciable edema. Respiratory: Symmetric chest expansion. Non-labored breathing. Gastrointestinal: No appreciable abdominal distention. No appreciable abdominal tenderness. No appreciable rebound tenderness. Neurological: Mental Status: A&O x 3, interactive, able to follow commands Speech: mild dysarthria, Fluent language Cortical: No Extinction CN: II - PERRLA, VF full III, IV, - EOMI V - Facial sensation intact VII - flattening of left nasolabial fold VIII - Auditory acuity intact RUE: 4-/5 strength LUE: 4-/5 strength RLE:4-/5 strength LLE: 4-/5 strength Sensory: Sensation to light touch in all four extremities intact and symmetric. Coordination: No limb ataxia with [id number] or [id number]. Gait: Deferred Labs: Lab values personally reviewed Stroke Labs: TSH, LDL, A1C, Troponin 11/20/2024: Thyroid Stimulating Hormone, Plasma 3.30 uIU/mL (Ref range: 0.40 - 4.20 uIU/mL) 11/21/2024: LDL, Calculated 31 mg/dL (Ref range: <100 mg/dL) CBC: Results from last 7 days Lab Units 11/20/24 1339 WBC 10*3/uL 7.31 HEMOGLOBIN g/dL 10.7* HEMATOCRIT % 32.3* PLATELETS 10*3/uL 289 CMP/RFP: Results from last 7 days Lab Units 11/20/24 1339 SODIUM mmol/L 134* POTASSIUM mmol/L 3.9 CHLORIDE mmol/L 93* CO2 mmol/L 28 BUN mg/dL 25* CREATININE mg/dL 0.91 CALCIUM mg/dL 8.7* ALBUMIN g/dL 3.0* BILIRUBIN TOTAL mg/dL 0.4 ALKALINE PHOSPHATASE U/L 131 AST U/L 36* ALT U/L 22 GLUCOSE mg/dL 173* Results from last 7 days Lab Units 11/20/24 1526 INR 2.5* EKG: Encounter Date: 11/20/24 ECG Adult Result Value EKG DIAGNOSIS CLASS Abnormal Ventricular Rate 60 Atrial Rate 202 QRSD Interval 188 QT Interval 554 QTC Interval 554 R [place] -82 T Wave [place] 117 Diagnosis Ventricular-paced rhythm Diagnosis Abnormal ECG *Note: Due to a large number of results and/or encounters for the requested time period, some results have not been displayed. A complete set of results can be found in Results Review. Imaging: Images independently viewed and interpreted, notable for CTH showed no acute intracranial abnormality. 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 Assessment and Plan Michelle Felipe is a 74 y.o. female with PMH of chronic LV thrombus and atrial fibrillation on warfarin, prior stroke with no residual deficit, hypertension, diabetes, hyperlipidemia, hypothyroidism, chronic hypoxic respiratory failure on 2 L nasal cannula at home, HFpEF, SLE. Stroke neurology was consulted as a stroke alert for slurred speech, and left facial droop. On my evaluation, patient has moderate dysarthria and a subtle left facial droop. She does not appear to have weakness in the left upper and lower extremity. She likely has a minor stroke, possibly alacunar subcortical right- sided infarct would be my most likely clinical localization. She does have a history of atrial fibrillation and a chronic LV thrombus, so this could also be punctate cortical or subcortical embolic infarcts. Acute right side ischemic stroke - Dysarthria and left facial droop - Impaired functional activities due to stroke (POA) - History of Afib - Chronic LV thrombus -Mechanism: Under investigation. Likely cardioembolic versus small-vessel disease. -LKN: 11:45 a.m. on 11/20/2024 -Risk Factors: Hypertension, diabetes, hyperlipidemia, atrial fibrillation, chronic LV thrombus -Total NIHSS Score: 2 -CT Head demonstrated showed no acute intracranial abnormality. 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 -Thrombolytics not given due to history of anticoagulant use in the last 24 hours -Thrombectomy not performed due to no LVO Plan -MRI head: pacemaker in place- repeat CT scan ordered in 24 hours. -Echo without bubble study pending -BP goals: <180 -Na goals: Normal -EKG: ventricular paced rhythm -Secondary stroke prophylaxis: Atorvastatin 40 mg, restart warfarin, start aspririn -PT/OT- pending - INSULATOR CUTTER AND FORMER: dht feed advised -Neuro checks and NIHSS per protocol -Continuous telemetry monitoring -MMoCA and PHQ-9 at discharge Seizure: - concerns for seizure with history at home before weakness and slurring of speech from daughter - routine EEG ordered - no active seizure now Acute on chronic hypoxic respiratory failure 2/2 recurrent pleural effusion s/p R sided thoracentesis (09/11/24) - on home oxygen Acute on chronic HFpEF - Continue home oxygen 2L - Not significantly volume overloaded on exam although does have some pedal edema - home furosemide, metoprolol restarted Hypothyroidsim - Restarted Levothyroxine 125 mcg DM - Started SSI and hypoglycemia monitoring SLE -Follows with [facility], on plaquenil and mycophenolate -has c/o painful mouth sores and sores along her elbow and hand small joint along with possible dactylitis - Takes Hydroxychloroquine at home. Restarted Chronic medical conditions: - Chronic Neuropathic pain: Gabapentin and Duloxetine. Resumed home med F: DHT E: Replace PRN N: DHT DVT ppx: pLOV Disposition plan: pending PT Babs Maddox Neurology PGY1 Cosigned by Marisabel Subramanian MD at 11/22/2024 8:53 AM EDT Associated attestation - Marisabel Subramanian MD - 11/22/2024 8:53 AM EDT I saw and evaluated the patient. I discussed the case with the resident/fellow and agree with the findings and plan as documented. * Progress Notes - Andra Gaona, CCC-INSULATOR CUTTER AND FORMER - 11/21/2024 1:29 PM EDT Speech Language Pathology Clinical Swallow Initial Evaluation Patient Name: Michelle Felipe Age: 74 y.o. Today's Date: 11/21/2024 Recommendations: Ice chips OK. Otherwise NPO. Re-eval tomm as schedule allows. History/Background Information Michelle Felipe is a 74 y.o. female with PMH of chronic LV thrombus and atrial fibrillation on warfarin, prior stroke with no residual deficit, hypertension, diabetes, hyperlipidemia, hypothyroidism, chronic hypoxic respiratory failure on 2 L nasal cannula at home, HFpEF, SLE. Stroke neurology was consulted as a stroke alert for slurred speech, and left facial droop. Subjective Ms. Felipe is awake/alert, daughter at bedside. Objective Current diet: NPO diet NPO except: Sips of clear liquids, Sips with meds Respiratory Status: 2L Oral Mechanism Report: Dentition: intact Oral hygiene: WFL Focused Cranial Nerve Exam: Trigeminal Nerve (V): mandible strength/ROM impaired Facial Nerve (VII): general weakness Vagus Nerve (X): Not assessed Spinal Accessory (XI): Not assessed Hypoglossal Nerve (XII): WFL Laryngeal Function Exam: Secretion Management: seemingly reduced Vocal Quality: adequate Cough: - Volitional not assessed - Reflexive adequate and weak Oral Care Completed: no Oral Feeding Trials: Positionin degrees, upright Feeding assistance: INSULATOR CUTTER AND FORMER presented PO trials to patient Consistencies Administered: ice chips and thin liquid via teaspoon Risk Factors: neurological change Informal assessment revealed the following: Receptive Language Not Impaired Impaired Not Assessed Comments Complex yes/no [x] [] [] Understands Complex Conversation [x] [] [] Expressive Language Not Impaired Impaired Not Assessed Comments Confrontation naming [x] [] [] Sentence formulation [x] [] [] Conversational speech [x] [] [] . Reading/Writing Not Impaired Impaired Not Assessed Comments Reading: [] numbers/letters [] word [] sentences [] paragraphs [] [] [x] Writing: [] number/letters [] word [] sentences [] paragraphs [] [] [x] Motor Speech Not impaired Impaired Not Assessed Comments Articulation [] [x] [] Phonation [] [x] [] ? Baseline from possible VF lesions she reports Respiration [x] [] [] Resonance [x] [] [] Prosody [] [x] [] Intelligibility in Conversation [] [x] [] Cognition Not Impaired Impaired Not Assessed Comments Orientation [x] [] [] Person [x] [] [] Place [x] [] [] Time [x] [] [] Situation [x] [] [] [x] [] [] Attention [x] [] [] Sustained [x] [] [] Divided [x] [] [] Alternating [] [] [x] Selective [] [] [x] Executive [] [] [x] Memory [x] [] [] Immediate [x] [] [] Short term [] [] [x] divemaster [x] [] [] Problem Solving [x] [] [] Simple [x] [] [] Multifactorial [] [] [x] Temporal [] [] [x] Assessment Ms. Felipe presents with possible pharyngeal dysphagia characterized by coughing with thin liquids on all trials of thin liquids. She tolerated ice chips without overt difficulty. She reports historyof VF lesions/sores that have impacted her vocal quality - unsure if it is related to lupus. Ms. Felipe presents with dysarthria characterized by slurred speech and imprecise articulation, vocal quality is harsh but is at baseline per family. Language and cognition skills appear to be WFL. Prognosis: Good for improved function with skilled speech pathology services focusing on stated goals. Patient Education was provided via verbal instruction to patient re: POC . Will continue to provideeducation in subsequent sessions as warranted. Results and recommendations of this evaluation were communicated to: RN/Team Plan / Recommendations Diet Recommendations: ice chips OK. Otherwise NPO. F/u Imaging: not yet - may need pending re-eval Goals Participate in clinical re-evaluation in 1-2 days. * Care Plan - Lynn Mack RN - 11/21/2024 10:30 AM EDT Problem: Adult Inpatient Plan of Care Goal: Plan of Care Review Outcome: Ongoing, Progressing Flowsheets (Taken 11/21/2024 1027) Progress: no change Plan of Care Reviewed With: patient spouse Goal: Patient-Specific Goal (Individualized) Outcome: Ongoing, Progressing Flowsheets (Taken 11/21/2024 0800) Patient/Family-Specific Goals (Include Timeframe): The patient will be free from falls/injuires this shift. Individualized Care Needs: safety Goal: Absence of Hospital-Acquired Illness or Injury Outcome: Ongoing, Progressing Intervention: Identify and Manage Fall Risk Flowsheets (Taken 11/21/2024 1027) Safety Promotion/Fall Prevention: activity supervised Intervention: Prevent Skin Injury Flowsheets (Taken 11/21/2024 102) Body Position: turned Goal: Optimal Comfort and Wellbeing Outcome: Ongoing, Progressing Intervention: Monitor Pain and Promote Comfort Flowsheets (Taken 11/21/2024 1027) Pain Management Interventions: care clustered quiet environment facilitated position adjusted Problem: Fall Injury Risk Goal: Absence of Fall and Fall-Related Injury Outcome: Ongoing, Progressing Intervention: Identify and Manage Contributors Flowsheets (Taken 11/21/2024 1027) Self-Care Promotion: BADL personal objects within reach Problem: Stroke, Ischemic (Includes Transient Ischemic Attack) Goal: Optimal Coping Outcome: Ongoing, Progressing Intervention: Support Psychosocial Response to Stroke Flowsheets (Taken 11/21/2024 1027) Supportive Measures: active listening utilized Family/Support System Care: involvement promoted presence promoted Goal: Optimal Cerebral Tissue Perfusion Outcome: Ongoing, Progressing Intervention: Protect and Optimize Cerebral Perfusion Flowsheets (Taken 11/21/2024 1027) Sensory Stimulation Regulation: auditory stimulation minimized Cerebral Perfusion Promotion: blood pressure monitored Goal: Optimal Cognitive Function Outcome: Ongoing, Progressing Intervention: Optimize Cognitive Function Flowsheets (Taken 11/21/2024 1027) Sensory Stimulation Regulation: auditory stimulation minimized Environment Familiarity/Consistency: familiar objects from home provided Problem: Skin Injury Risk Increased Goal: Skin Health and Integrity Outcome: Ongoing, Progressing Intervention: Optimize Skin Protection Flowsheets (Taken 11/21/2024 1027) Activity Management: activity adjusted per tolerance Head of Bed (HOB) Positioning: HOB at 30 degrees * Clinician Note - Dar Araya - 11/21/2024 10:24 AM EDT Occupational Therapy Attempt Patient Name: Michelle Felipe Today's Date: 11/21/2024 Patient was attempted to be seen by occupational therapy 11/21/2024 for OT evaluation however patient not available (Patient having ECHO.). Occupational therapy team will follow-up as schedule permits. Written by Dar Araya on 11/21/24 at 10:26 AM. * Clinician Note - Tanya Gaston - 11/21/2024 10:23 AM EDT Physical Therapy Attempt Patient Name: Michelle Felipe Today's Date: 11/21/2024 Patient was attempted to be seen by physical therapy 11/21/2024 for PT Evaluation however bedside care in progress (ECHO). Physical therapy team will follow-up as schedule permits. Written by Tanya Gaston on 11/21/24 at 10:27 AM. * Care Plan - Tosha Sims RN - 11/20/2024 9:50 PM EDT Problem: Adult Inpatient Plan of Care Goal: Plan of Care Review Outcome: Ongoing, Progressing Flowsheets (Taken 11/20/20242146) Progress: improving Plan of Care Reviewed With: patient spouse Goal: Patient-Specific Goal (Individualized) Outcome: Ongoing, Progressing Flowsheets (Taken 11/20/20242146) Patient/Family-Specific Goals (Include Timeframe): Pt will be free from falls and injury this shift Individualized Care Needs: safety Anxieties, Fears or Concerns: safety Goal: Absence of Hospital-Acquired Illness or Injury Outcome: Ongoing, Progressing Intervention: Identify and Manage Fall Risk Flowsheets (Taken 11/20/20242146) Safety Promotion/Fall Prevention: activity supervised Intervention: Prevent Skin Injury Flowsheets (Taken 11/20/20242146) Body Position: heels elevated Skin Protection: incontinence pads utilized Intervention: Prevent and Manage VTE (Venous Thromboembolism) Risk Flowsheets (Taken 11/20/20242146) VTE Prevention/Management: bilateral SCDs (sequential compression devices) on Intervention: Prevent Infection Flowsheets (Taken 11/20/20242146) Infection Prevention: environmental surveillance performed Goal: Optimal Comfort and Wellbeing Outcome: Ongoing, Progressing Intervention: Monitor Pain and Promote Comfort Flowsheets (Taken 11/20/20242146) Pain Management Interventions: music Intervention: Provide Person-Centered Care Flowsheets (Taken 11/20/20242146) Trust Relationship/Rapport: reassurance provided thoughts/feelings acknowledged Problem: Fall Injury Risk Goal: Absence of Fall and Fall-Related Injury Outcome: Ongoing, Progressing Intervention: Identify and Manage Contributors Flowsheets (Taken 11/20/20242146) Medication Review/Management: medications reviewed Self-Care Promotion: independence encouraged Intervention: Promote Injury-Free Environment Flowsheets (Taken 11/20/20242146) Safety Promotion/Fall Prevention: activity supervised Problem: Stroke, Ischemic (Includes Transient Ischemic Attack) Goal: Optimal Coping Outcome: Ongoing, Progressing Intervention: Support Psychosocial Response to Stroke Flowsheets (Taken 11/20/20242146) Supportive Measures: mindfulness techniques promoted Family/Support System Care: caregiver stress acknowledged Goal: Effective Bowel Elimination Outcome: Ongoing, Progressing Intervention: Promote Effective Bowel Elimination Flowsheets (Taken 11/20/20242146) Bowel Elimination Management: relaxation techniques promoted Goal: Optimal Cerebral Tissue Perfusion Outcome: Ongoing, Progressing Intervention: Protect and Optimize Cerebral Perfusion Flowsheets (Taken 11/20/20242146) Stabilization Measures: provider notified Fluid/Electrolyte Management: intravenous fluids adjusted Sensory Stimulation Regulation: auditory stimulation minimized Cerebral Perfusion Promotion: blood pressure monitored Goal: Optimal Cognitive Function Outcome: Ongoing, Progressing Intervention: Optimize Cognitive Function Flowsheets (Taken 11/20/20242146) Sensory Stimulation Regulation: auditory stimulation minimized Reorientation Measures: calendar in view Environment Familiarity/Consistency: daily routine followed Goal: Improved Communication Skills Outcome: Ongoing, Progressing Intervention: Optimize Communication Skills Flowsheets (Taken 11/20/20242146) Communication Enhancement Strategies: call light answered in person Goal: Optimal Functional Ability Outcome: Ongoing, Progressing Intervention: Optimize Functional Ability Flowsheets (Taken 11/20/20242146) Activity Management: ambulated to bathroom Self-Care Promotion: independence encouraged Goal: Optimal Nutrition Intake Outcome: Ongoing, Progressing Intervention: Promote and Optimize Fluid and Food Intake Flowsheets (Taken 11/20/20242146) Nutrition Interventions: calorie count initiated Goal: Effective Oxygenation and Ventilation Outcome: Ongoing, Progressing Intervention: Optimize Oxygenation and Ventilation Flowsheets (Taken 11/20/20242146) Airway/Ventilation Management: airway patency maintained Head of Bed (HOB) Positioning: HOB elevated Goal: Improved Sensorimotor Function Outcome: Ongoing, Progressing Intervention: Optimize Range of Motion, Motor Control and Function Flowsheets (Taken 11/20/20242146) Range of Motion: active ROM (range of motion) encouraged Spasticity Management: positioned with supportive device Intervention: Optimize Sensory and Perceptual Ability Flowsheets (Taken 11/20/20242146) Pressure Reduction Techniques: frequent weight shift encouraged Sensation Impairment Protection: cues provided for safety Goal: Safe and Effective Swallow Outcome: Ongoing, Progressing Intervention: Optimize Eating and Swallowing Flowsheets (Taken 11/20/20242146) Aspiration Precautions: NPO pending swallow screening/evaluation Swallowing Interventions: Dysphagia: food and liquid intake alternated Goal: Effective Urinary Elimination Outcome: Ongoing, Progressing Intervention: Promote Effective Bladder Elimination Flowsheets (Taken 11/20/20242146) Urinary Elimination Promotion: absorbent pad/diaper use encouraged * H&P - Ruben Caal MBBS - 11/20/2024 8:41 PM EDT Please see stroke neurology consult note from 11/20/2024 SHANA Armstrong Neurology PGY2 [phone] Epic chat preferred Cosigned by Everette Colon MD at 11/21/2024 11:31 AM EDT * Consults - Ruben Caal MBBS - 11/20/2024 8:03 PM EDTAssociated Order(s): Consult to Neurology Consult to Neurology Consult performed by: Ruben Caal MBBS Consult ordered by: Arlette Soliman MD Stroke Consult History Of Present Illness Michelle Felipe is a 74 y.o. female with PMH of chronic LV thrombus and atrial fibrillation on warfarin, prior stroke with no residual deficit, hypertension, diabetes, hyperlipidemia, hypothyroidism, chronic hypoxic respiratory failure on 2 L nasal cannula at home, HFpEF, SLE. Stroke neurology was consulted as a stroke alert for slurred speech, and left facial droop. LKN was around 11:45 a.m. on 11/20/2024. History obtained from the patient. She states that she woke up in her usual state of health this morning and had sudden onset slurring of speech which started at around 11:45 a.m. she states that this is the 1st time she has had such symptoms. She had not noticed any weakness on either side of her body. She denies swallowing difficulty, blurring of vision, dizziness. She does have a history of atrial fibrillation and chronic LV thrombus for which she takes warfarin. She states that her last dose was last night. According to her, she has been compliant with her medications. She states that shehas been on apixaban in the past, however does not remember why she was switched to warfarin. She de nies any history of bleeding on anticoagulation. She does not recall the symptoms she had when she had her previous stroke. On my evaluation, she has moderate dysarthria and a subtle left facial droop. She does not have anysignificant weakness in any of her extremities. She is alert and oriented and the history she provides seems to be reliable. On arrival, lab showed a hemoglobin of 10.7, glucose of 179, sodium of 134, PT of 27 and an INR of 2.5. - BP on arrival was 195/68 and blood sugar was 179. -NIHSS on initial exam was 2. -Images were discussed with Neurointerventionalist vehicle controls engineer via the [employer] ale[employer]andro. -CTH showed no acute intracranial abnormality. 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 -Thrombolytics were not administered due to history of anticoagulant use in the last 24 hours. Thrombectomy was not performed due to no large vessel occlusion. -Patient stroke risk factors include atrial fibrillation, diabetes mellitus, hyperlipidemia, and hypertension -Patient antiplatelet use or anticoaguant use: Warfarin Results from last 7 days Lab Units 11/20/24 1526 11/20/24 1339 GLUCOSE mg/dL -- 173* INR 2.5* -- APTT sec 37* -- PLATELETS 10*3/uL -- 289 Past Medical History: Past Medical History[1] Past Surgical History: Surgical History[2] Social History: Tobacco: Tobacco Use: Not on file Alcohol: Alcohol Use: Not on file Illicit drug use: Social History Substance and Sexual Activity Drug Use Not on file Allergies: Allergies[3] Family Medical History: family history is not on file. Home Medications: Prior to Admission medications Not on File Last Recorded Vitals Vitals: 11/20/24 1340 11/20/24 1401 11/20/24 1505 11/20/24 1928 BP: (!) 195/68 (!) 195/68 (!) 161/76 (!) 157/76 BP Location: Right arm Right arm Right arm Patient Position: Sitting Lying Lying Pulse: 60 60 60 60 Resp: 20 20 18 17 Temp: 36.8 ??C (98.3 ??F) 36.8 ??C (98.3 ??F) 36.7 ??C (98 ??F) 36.4 ??C (97.5 ??F) TempSrc: Oral Oral Oral SpO2: 95% 95% 93% 92% Systolic (24hrs), Av , Min:157 , Max:195 Diastolic (24hrs), Av, Min:68, Max:76 Temp (24hrs), Av.7 ??C (98 ??F), Min:36.4 ??C (97.5 ??F), Max:36.8 ??C (98.3 ??F) Physical Exam: Constitutional: Patient in no acute distress. Patient appears stated age. Ears, Nose, Mouth, Throat: Mucous membranes appear moist. No appreciable hearing impairment. Nares patent. Eyes: Anicteric sclera. No appreciable conjunctival injection. Cardiovascular: Appears well-perfused. No appreciable edema. Respiratory: Symmetric chest expansion. Non-labored breathing. Gastrointestinal: No appreciable abdominal distention. No appreciable abdominal tenderness. No appreciable rebound tenderness. Neurological: Mental Status: A&O x 3, interactive, able to follow commands Speech: Moderate dysarthria, Fluent language Cortical: No Extinction CN: II - PERRLA, VF full III, IV, - EOMI V - Facial sensation intact VII - flattening of left nasolabial fold VIII - Auditory acuity intact RUE: >3/5 strength LUE: >3/5 strength RLE: >3/5 strength LLE: >3/5 strength Sensory: Sensation to light touch in all four extremities intact and symmetric. Coordination: No limb ataxia with [id number] or [id number]. Gait: Deferred ICH stroke scale: Not Applicable Labs CBC: Results from last 7 days Lab Units 11/20/24 1339 WBC 10*3/uL 7.31 HEMOGLOBIN g/dL 10.7* HEMATOCRIT % 32.3* PLATELETS 10*3/uL 289 CMP/RFP: Results from last 7 days Lab Units 11/20/24 1339 SODIUM mmol/L 134* POTASSIUM mmol/L 3.9 CHLORIDE mmol/L 93* CO2 mmol/L 28 BUN mg/dL 25* CREATININE mg/dL 0.91 CALCIUM mg/dL 8.7* ALBUMIN g/dL 3.0* BILIRUBIN TOTAL mg/dL 0.4 ALKALINE PHOSPHATASE U/L 131 ALT U/L 22 AST U/L 36* GLUCOSE mg/dL 173* Results from last 7 days Lab Units 11/20/24 1526 INR 2.5* Results from last 7 days Lab Units 11/20/24 1526 11/20/24 1339 TROPONIN, HIGH SENSI0 ng/L -- 105* TROPONIN T2 ng/L 112* -- TROPONIN, DELTA IN Not Calculated -- Microbiology/Abx: Results No results found for the last 48 hours. EKG: Encounter Date: 11/20/24 ECG Adult Result Value EKG DIAGNOSIS CLASS Abnormal Ventricular Rate 60 Atrial Rate 202 QRSD Interval 188 QT Interval 554 QTC Interval 554 R [place] -82 T Wave [place] 117 Diagnosis Ventricular-paced rhythm Diagnosis Abnormal ECG *Note: Due to a large number of results and/or encounters for the requested time period, some results have not been displayed. A complete set of results can be found in Results Review. Stroke Labs: TSH, LDL, A1C Results from last 7 days Lab Units 11/20/24 1428 TSH uIU/mL 3.30 Imaging: Images independently viewed and interpreted, notable for CTH showed no acute intracranial abnormality. 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 CT Angio Head Result Date: 11/20/2024 Impression: 1. Thready nonopacified appearance of the left cervical and intradural vertebral arterywhich is favored to be related to chronic dissection or developmentally hypoplastic. 2. Otherwise, no intracranial proximal large vessel occlusion. 3. Moderate left subclavian artery origin stenosis.4. No high- grade stenosis is present within the visualized cervical carotid arteries. 5. Severe left and moderate right intracranial ICA stenosis and mild right intradural vertebral artery stenosis secondary to atherosclerosis. 6. Degenerative cervical sclerosis and ankylosis in the spine, erosive changes within the bilateral temporomandibular joint with capsular calcifications in the right TMJ and near the craniocervical junction. These findings could be seen in the setting of rheumatoid arthritis. 7. Moderate right and small left pleural effusion with groundglass opacities. Recommend dedicated chest imaging for further evaluation. CRITICAL RESULT: No. COMMUNICATION: Per this written report. Drafted by Sonam Rivas on 11/20/2024 1:46 PM Final report signed by Sonam Rivas on11/20/2024 2:[address] Angio Neck Result Date: 11/20/2024 Impression: 1. Thready nonopacified appearance of the left cervical and intradural vertebral arterywhich is favored to be related to chronic dissection or developmentally hypoplastic. 2. Otherwise, no intracranial proximal large vessel occlusion. 3. Moderate left subclavian artery origin stenosis.4. No high- grade stenosis is present within the visualized cervical carotid arteries. 5. Severe left and moderate right intracranial ICA stenosis and mild right intradural vertebral artery stenosis secondary to atherosclerosis. 6. Degenerative cervical sclerosis and ankylosis in the spine, erosive changes within the bilateral temporomandibular joint with capsular calcifications in the right TMJ and near the craniocervical junction. These findings could be seen in the setting of rheumatoid arthritis. 7. Moderate right and small left pleural effusion with groundglass opacities. Recommend dedicated chest imaging for further evaluation. CRITICAL RESULT: No. COMMUNICATION: Per this written report. Drafted by Sonam Rivas on 11/20/2024 1:46 PM Final report signed by Sonam Rivas on11/20/2024 2:[address] Head wo IV contrast Result Date: 11/20/2024 Impression: 1. No visible acute intracranial abnormality. 2. 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 CRITICAL RESULT: No. COMMUNICATION: Per this written report. Drafted by Sonam Rivas on 11/20/2024 1:13 PM Final report signed by Sonam Rivas on 11/20/2024 1:23 PM Assessment/Plan Michelle Felipe is a 74 y.o. female with PMH of chronic LV thrombus and atrial fibrillation on warfarin, prior stroke with no residual deficit, hypertension, diabetes, hyperlipidemia, hypothyroidism, chronic hypoxic respiratory failure on 2 L nasal cannula at home, HFpEF, SLE. Stroke neurology was consulted as a stroke alert for slurred speech, and left facial droop. On my evaluation, patient has moderate dysarthria and a subtle left facial droop. She does not appear to have weakness in the left upper and lower extremity. She likely has a minor stroke, possibly alacunar subcortical right- sided infarct would be my most likely clinical localization. She does have a history of atrial fibrillation and a chronic LV thrombus, so this could also be punctate cortical or subcortical embolic infarcts. Acute right side ischemic stroke - Dysarthria and left facial droop - Impaired functional activities due to stroke (POA) 2. History of Afib 3. Chronic LV thrombus -Mechanism: Under investigation. Likely cardioembolic versus small-vessel disease. -LKN: 11:45 a.m. on 11/20/2024 -Risk Factors: Hypertension, diabetes, hyperlipidemia, atrial fibrillation, chronic LV thrombus -Total NIHSS Score: 2 -CT Head demonstrated showed no acute intracranial abnormality. 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 -Thrombolytics not given due to history of anticoagulant use in the last 24 hours -Thrombectomy not performed due to no LVO Plan - Admit to stroke PCU -MRI head wo contrast ordered -Echo without bubble study ordered -BP goals: Permissive for first 24 hrs, PRNs for SBP >220. SBP < 180 thereafter. -Na goals: Normal -Stroke Labs: TSH, LDL, A1c -EKG ordered -Secondary stroke prophylaxis: Atorvastatin 40 mg, holding Warfarin for now pending assessment of stroke burden -Bedside dysphagia screen prior to po intake -PT/OT/INSULATOR CUTTER AND FORMER consults -Neuro checks and NIHSS per protocol -Continuous telemetry monitoring -MMoCA and PHQ-9 at discharge 4. Acute on chronic hypoxic respiratory failure 2/2 recurrent pleural effusion s/p R sided thoracentesis (09/11/24) 5. Acute on chronic HFpEF - Continue home oxygen 2L - Not significantly volume overloaded on exam although does have some pedal edema - Is on some elements of GDMT: Spironolactone, Metoprolol, Losartan. Also takes Furosemide 80 mg. Would cautiously re-initiate pending med rec. Holding for now to maintain permissive hypertension. 6. Hypothyroidsim - Restarted Levothyroxine 125 mcg 7. DM - Started SSI and hypoglycemia monitoring 8. SLE -Follows with [facility], on plaquenil and mycophenolate -has c/o painful mouth sores and sores along her elbow and hand small joint along with possible dactylitis - Takes Hydroxychloroquine at home. Restart pending med rec. Chronic medical conditions: - Chronic Neuropathic pain: Gabapentin and Duloxetine. Resume pending med rec. Problem List[4] F: NPO pending dysphagia screen E: Replace PRN N: NPO pending dysphagia screen DVT ppx: pLOV Code status: No Order Disposition plan: Stroke PCU Staffed with Dr. Colon. SHANA Armstrong Neurology PGY2 [phone] Epic chat preferred\ NIH Stroke Scale Interval: Baseline Time: 8:03 PM Person Administering Scale: SHANA Armstrong Administer stroke scale items in the order listed. Record performance in each category after each subscale exam. Do not go back and change scores. Follow directions provided for each exam technique. Scores should reflect what the patient does, not what the clinician thinks the patient can do. The clinician should record answers while administering the exam and work quickly. Except where indicated, the patient should not be coached (i.e., repeated requests to patient to make a special effort). 1a Level of consciousness: 0=alert; keenly responsive 1b. LOC questions: 0=Performs both tasks correctly 1c. LOC commands: 0=Performs both tasks correctly 2. Best Gaze: 0=normal 3. Visual: 0=No visual loss 4. Facial Palsy: 1=Minor paralysis (flattened nasolabial fold, asymmetric on smiling) 5a. Motor left arm: 0=No drift, limb holds 90 (or 45) degrees for full 10 seconds 5b. Motor right arm: 0=No drift, limb holds 90 (or 45) degrees for full 10 seconds 6a. motor left le=No drift, limb holds 90 (or 45) degrees for full 10 seconds 6b Motor right le=No drift, limb holds 90 (or 45) degrees for full 10 seconds 7. Limb Ataxia: 0=Absent 8. Sensory: 0=Normal; no sensory loss 9. Best Language: 0=No aphasia, normal 10. Dysarthria: 1=Mild to moderate, patient slurs at least some words and at worst, can be understood with some difficulty 11. Extinction and Inattention: 0=No abnormality Total: 2 [1] No past medical history on file. [2] No past surgical history on file. [3] Not on File [4] Patient Active Problem List Diagnosis Acute ischemic stroke ([facility]) Cosigned by Everette Colon MD at 11/21/2024 11:31 AM EDT Associated attestation - Everette Colon MD - 11/21/2024 11:31 AM EDT I saw and evaluated the patient with the resident/fellow. I discussed the case with the resident/fellow and agree with the findings and plan as documented. * Care Plan - Lynn Mack RN - 11/20/2024 6:41 PM EDT Problem: Adult Inpatient Plan of Care Goal: Plan of Care Review Outcome: Ongoing, Progressing Flowsheets (Taken 11/20/20241840) Progress: no change Plan of Care Reviewed With: patient spouse Goal: Patient-Specific Goal (Individualized) Outcome: Ongoing, Progressing Flowsheets (Taken 11/20/2024 1530) Patient/Family-Specific Goals (Include Timeframe): The patient will be free rom falls/injuries thisshift. Individualized Care Needs: safety Goal: Absence of Hospital-Acquired Illness or Injury Outcome: Ongoing, Progressing Intervention: Identify and Manage Fall Risk Flowsheets (Taken 11/20/20241840) Safety Promotion/Fall Prevention: activity supervised clutter-free environment maintained Goal: Optimal Comfort and Wellbeing Outcome: Ongoing, Progressing Intervention: Monitor Pain and Promote Comfort Flowsheets (Taken 11/20/20241840) Pain Management Interventions: position adjusted Problem: Fall Injury Risk Goal: Absence of Fall and Fall-Related Injury Outcome: Ongoing, Progressing Intervention: Identify and Manage Contributors Flowsheets (Taken 11/20/20241840) Self-Care Promotion: BADL personal objects within reach meal set-up provided Problem: Stroke, Ischemic (Includes Transient Ischemic Attack) Goal: Optimal Coping Outcome: Ongoing, Progressing Intervention: Support Psychosocial Response to Stroke Flowsheets (Taken 11/20/20241840) Supportive Measures: active listening utilized Family/Support System Care: involvement promoted Goal: Effective Bowel Elimination Outcome: Ongoing, Progressing Goal: Improved Communication Skills Outcome: Ongoing, Progressing Intervention: Optimize Communication Skills Flowsheets (Taken 11/20/20241840) Communication Enhancement Strategies: family involved in communication plan family/caregiver assisted with communication * Progress Notes - Vianey Cardona, PharmD - 11/20/2024 1:49 PM EDT Pharmacy Stroke Evaluation Note Edy Xthirtyficarla is a 74 y.o. female that presents from Scene with symptoms of extremity weakness and facial droop. Last known well: ~11:53 when EMS was dispatched. PMH: No past medical history on file. 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, recurrent right pleural effusion (per patient's chart review under Michelle Felipe, 52) but was told on report that the pt had a hx of stroke but did not have any deficits after Time of arrival to the ED: 11/20/2024 12:56 PM Pertinent Vitals, Labs, and Medications Baseline CT: Rules out hemorrhage or non-stroke cause of deficit Blood Pressure: 160/68 mmHg BP Readings from Last 1 Encounters: No data found for BP Laboratory Values: POCT Glucose Date Value Ref Range Status 11/20/2024 179 (H) 74 - 99 mg/dL Final Comment: Accuracy of a glucose result obtained from a capillary whole blood specimen relies upon adequate, non-compromised capillary blood flow. If the capillary glucose result is not consistent with the patient's clinical signs and symptoms, glucose testing should be repeated with either an arterial or venous sample on the glucometer or sent to the main labortory for testing. NIHSS: 2 NIHSS obtained prior to CT scan?: Yes Time of call to neurology attending for Thrombolytics eligibility: Date: 11/20/24 Time: 13:20 Time of neurology attending approval for Thrombolytics administration: Date: N/A Time: N/A Medications Prior to Arrival: Anticoagulants: Warfarin 5 mg daily except 7.5 mg on (from [facility] Visit note from ) - according to patient, her last dose was last night Antiplatelets: Aspirin 81 daily per chart review Evaluation for the Use of Thrombolytics: Patient was evaluated for thrombolytics and determined: Patient is not a candidate for thrombolytics. Contraindications: INR currently still pending but her NIHSS score is 2 which is nondisabling and the benefits vs. risk for TNK given that she's on warfarin Vianey Cardona, PharmD 11/20/2024 1:38 PM * ED Provider Notes - Florida Griffiths MD - 11/20/2024 12:56 PM EDT Images from the original note were not included. - HPI 74-year-old female with past medical history of AFib on warfarin, stroke in 2018, hypertension, diabetes, chronically on 2 L of oxygen, presents to the ED as a stroke alert. Patient woke up and was in her normal state of mind when around 11 30 she started to have a slurred speech and left facial droop. Patient has been compliant with her medicine. NIH score of 2. Chief Complaint Patient presents with Stroke Alert Red HPI Patient History Past Medical History[1] Surgical History[2] Family History[3] Social History[4] Allergies: Allergies[5] Physical Exam ED Triage Vitals Temp Pulse Resp BP -- -- -- -- SpO2 Temp src Heart Rate Source Patient Position -- -- -- -- BP Location FiO2 (%) -- -- Physical Exam Atkins Coma Scale Score: 15 NIH Stroke Scale: 3 ED Course & MDM - Assessment: Please see the ED course for a more detailed summary. 74 y.o. female presents to ED with complaint of stroke like symptoms. It should be noted that the chronic conditions includes DM, HTN, Afib, prior stroke, which currently is not at goal therapy. Thiscomplicates the clinical picture because it Comorbidities: may be exacerbating symptoms Differential Diagnosis: Differential diagnosis includes but is not limited to stroke, TIA, hypoglycemia, electrolyte derangement, intracranial mass, intracranial hemorrhage, complicated migraine, Cueto's palsy, Koko's paralysis, recrudescence of prior stroke, and infection. In order to fully explore the differential diagnosis the following treatments and tests were ordered: ED Medication Administration from 11/20/2024 1255 to 11/20/2024 1344 Date/Time Order Dose Route Action 11/20/2024 1311 EDT iohexol (OMNIPaque) 350 MG/ML injection 100 mL 100 mL Intravenous Given All Other Orders Ordered Status Ordering Provider 11/20/24 1344 Vital Signs Every 8 hours Acknowledged RUBEN CAAL 11/20/24 1344 Check pulse oximetry Every 12 hours Acknowledged RUBEN CAAL 11/20/24 1344 Lipid panel Morning draw Comments: Stroke Final result RUBEN CAAL 11/20/24 1344 Vital Signs Every 4 hours Acknowledged CAAL, RUBEN 11/20/24 1344 Check pulse oximetry Every 4 hours Acknowledged CAAL, RUBEN 11/20/24 134 Intake and output Every 8 hours Acknowledged CAAL, RUBEN 11/20/24 1259 Prothrombin Time STAT Comments: Stroke Alert Final result ARLETTE SOLIMAN 11/20/24 1259 Anti Xa Level Unfractionated Heparin STAT Comments: Stroke Alert Final result ARLETTE SOLIMAN 11/20/24 1259 APTT (PTT) STAT Comments: Stroke Alert Final result ARLETTE SOLIMAN 11/20/24 1344 Do Not Give Nicotine Replacement Until discontinued Acknowledged CAAL, [facility] 11/20/24 134 Once Canceled CAAL, RUBEN 11/20/24 134 Echo, Adult Transthoracic Complete Once Final result CAAL, [facility] 11/20/24 134 Diet effective now Comments: Dysphagia screen before any PO intake including ice chips and medications. Canceled CAAL, RUBEN 11/20/24 134 Notify physician (specify parameters) Until discontinued Acknowledged CAAL, [facility] 11/20/24 134 Neuro checks Until discontinued Comments: Including pupil checks, every 2 hours for 48 hours; then every 4 hours x 24 hrs. After initial 72 hrs, NIH should be assessed every 12 hours and with any acute neurological change until discharge. Acknowledged CAAL, RUBEN 11/20/24 134 NIH Stroke Scale Until discontinued Comments: Every 2 hours for 48 hours; then every 4 hours x 24 hrs. After initial 72 hrs, NIH shouldbe assessed every 12 hours and with any acute neurological change until discharge. Acknowledged CAAL, [facility] 11/20/24 134 Dysphagia screen Once Comments: Prior to ANY PO intake (including medications, ice chips, food or fluids). Acknowledged CAAL, [facility] 11/20/24 134 Telemetry Monitoring for Acute Stroke or Cerebrovascular Disease Until discontinued Acknowledged CAAL, [facility] 11/20/24 134 Insert peripheral IV Once Placed in And Linked Group Completed CAAL, RUBEN 11/20/24 134 Saline lock IV Once Placed in And Linked Group Completed CAAL, [facility] 11/20/24 134 Patient education (specify) Other (enter comments) Once Comments: Stroke packet diagnosis specific and risk factor education. Acknowledged CAAL, RUBEN 11/20/24 1344 PT eval and treat Until therapy completed Acknowledged CAAL, RUBEN 11/20/24 1344 OT eval and treat Until therapy completed Comments: Stroke Rehab Acknowledged CAAL, RUBEN 11/20/24 1344 INSULATOR CUTTER AND FORMER eval and treat Until therapy completed Acknowledged CAAL, RUBEN 11/20/24 1344 Inpatient Consult for [facility] Neurocognitive Screening Once Provider: (Not yet assigned) Acknowledged CAAL, RUBEN 11/20/24 1344 Hemoglobin A1c Once Comments: Stroke Final result CAAL, RUBEN 11/20/24 1344 TSH Once Comments: Stroke Final result CAAL, RUBEN 11/20/24 1344 Once Canceled CAAL, RUBEN 11/20/24 1344 Admit to inpatient Once Completed CAAL, RUBEN 11/20/24 1344 Unable to Assess Until discontinued Completed CAAL, RUBEN 11/20/24 1344 Mobility Orders Until discontinued Acknowledged CAAL, RUBEN 11/20/24 1301 POCT glucose meter PROCEDURE ONCE Final result POCT, GENERIC PROVIDER 11/20/24 1259 Until discontinued Canceled MICCICHEARLETTE 11/20/24 1259 Oxygen Therapy - Device: Nasal Cannula Continuous Comments: Oxygen per nursing protocol to maintain oxygen saturations above 94% Order ID Start Status Ordering Provider [id number] 11/20/24 1300 Completed MICCIARLETTE MCELROY [id number] 11/20/241999 Completed ARLETTE SOLIMAN [id number] 11/21/24 0800 Completed MICCIARLETTE MCELROY [id number] 11/21/241999 Completed MICARLETTE ZAPIEN [id number] 11/22/24 0800 Acknowledged MICCIARLETTE MCELROY [id number] 11/22/241999 Acknowledged MICCIARLETTE MCELROY 11/23/24 0800 Scheduled MICCICHEARLETTE 11/23/241999 Scheduled MICCICHEARLETTE 11/24/24 0800 Scheduled MICCICHEARLETTE 11/24/241999 Scheduled MICCICHEARLETTE 11/25/24 0800 Scheduled MICCICHEARLETTE 11/25/241999 Scheduled MICCICHEARLETTE 11/26/24 0800 Scheduled MICCICHE, ARLETTE F 11/26/241999 Scheduled ARLETTE SOLIMAN 11/27/24 0800 Scheduled MICCIARLETTE MCELROY 11/27/241999 Scheduled ARLETTE SOLIMAN 11/28/24 0800 Scheduled MANISH, ARLETTE Titus 11/28/241999 Scheduled ARLETTE SOLIMAN Acknowledged ARLETTE SOLIMAN 11/20/24 1259 Insert peripheral IV Once Completed ARLETTE SOLIMAN 11/20/24 1259 Diet effective now Canceled ARLETTE SOLIMAN 11/20/24 1259 POCT glucose Once Acknowledged ARLETTE SOLIMAN 11/20/24 1259 CBC with Diff STAT Comments: Stroke Alert Final result ARLETTE SOLIMAN 11/20/24 1259 Comprehensive Metabolic Panel STAT Comments: Stroke Alert Final result ARLETTE SOLIMAN 11/20/24 1259 Test Qualitative Plasma STAT Comments: Stroke Alert Final result ARLETTE SOLIMAN 11/20/24 1259 Troponin now and 120 min STAT Comments: Stroke Alert Final result ARLETTE SOLIMAN 11/20/[address] Head wo IV contrast Once Final result ARLETTE SOLIMAN 11/20/[address] Angio Head Once Comments: The field above indicates approval for Radiology techs to use department protocols. Any changes will be communicated directly to the Ordering Service. Final result ARLETTE SOLIMAN 11/20/[address] Angio Neck Once Comments: The field above indicates approval for Radiology techs to use department protocols. Any changes will be communicated directly to the Ordering Service. Final result ARLETTE SOLIMAN 11/20/24 1259 ECG Adult Once Comments: Special Instructions: After CT Scan is completed upon arrival to room Preliminary result ARLETTE SOLIMAN 11/20/24 1259 Consult to Neurology Once Specialty: Neurology Provider: (Not yet assigned) Completed ARLETTE SOLIMAN 11/20/24 1259 Stroke Alert Activation Notification Once Acknowledged ARLETTE SOLIMAN ED Course as of 11/21/242049 Sat Nov 20, 2024 1320 NIH 2 [PA] Sun Nov 21, 20242043 I met the patient in the ED CT room. I was present alongside the neurology resident. Patient'sairway was clear and breath sounds were heard bilaterally. [PA] 2043 Stroke alert labs and imaging were ordered [PA] 2046 Comprehensive Metabolic Panel(!) CMP was unremarkable for any actionable electrolyte derangement, elevated creatine, or transaminitis. [PA] 2046 CBC with Diff(!) CBC was unremarkable for any actionable leukocytosis, anemia, or thrombocytopenia. [PA] 2047 CTH showed no acute intracranial abnormality. 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 [PA] 2048 Patient was admitted to the neurology soon after she moved from the CT scanner to the room. [PA] ED Course User Index [PA] Florida Griffiths MD Clinical Impressions as of 11/21/242049 Cerebrovascular accident (CVA), unspecified mechanism (CMS/HCC) Social Determinates of Health Risks (including Economic Stability, Education and level of understanding, Healthcare access and quality and concerning social factors): Social factors impacting patient's psychosocial well-being Ultimately, this patient was Was admitted (Admission) The encounter diagnosis was Cerebrovascular accident (CVA), unspecified mechanism (CMS/HCC).. Patient believed to require admission for the listed diagnoses. The Neurology service was consulted for admission and was agreeable to admit to ICU. ED Prescriptions None Disposition Admit Admitting/Attending Physician: MARISABEL SUBRAMANIAN [[id number]] Provider Care Team: JESSI STROKE FORD [[id number]] Are they the primary team?: Yes [1] - [1] No past medical history on file. [2] No past surgical history on file. [3] No family history on file. [4] [5] No Known Allergies Florida Griffiths MD Resident 11/21/242049 Cosigned by Chai Krishna MD at 11/21/2024 9:05 PM EDT Associated attestation - Chai Krishna MD - 11/21/2024 9:05 PM EDT I saw and evaluated the patient with the resident/fellow. I discussed the case with the resident/fellow and agree with the findings and plan as documented. * ED Triage Notes - Jey Matta RN - 11/20/2024 12:56 PM EDT Family called EMS at 1153 today for slurred speech and facial palsy. PT had a previous CVA in 2018. documented in this encounter Plan of Treatment Upcoming Encounters Date Type Department Care Team (Late st Contact Info) Description 01/06/2025 2:00 PM EDT Office Visit [facility] [address] [place] [phone] Lavern Shoemaker MD [address] [place] [address] [phone] 01/12/2025 1:10 PM EST Office Visit [facility] [address] [place] [phone] Noris Yee MD [address] [facility] [address] [place] [phone] 01/12/2025 2:00 PM EST Office Visit [facility] [address] [place] [address] Ezra Fine MD [address] [place] [address] 01/27/2025 10:00 AM EST Office Visit [facility] [address] [place] [phone] Sujit Cole, YAMILET [address] [place] [phone] 02/02/2025 8:40 AM EST Office Visit [facility] Internal Medicine [address] [place] [address] Alisa Kunz, DO [address] [place] [phone] 02/09/2025 12:20 PM EST Office Visit [facility] Endocrinology [address] [place] [phone] Anne-Marie Kolb, HEAVY EQUIPMENT SERVICE MANAGER [address] [facility] [address] [place] [address] 04/18/2025 2:40 PM EST Office Visit [facility] Endocrinology [address] [place] [address] Anne-Marie Kolb, HEAVY EQUIPMENT SERVICE MANAGER [address] [facility] [address] [place] [address] Scheduled Referrals Name Type Priority Associated Diagnoses Orde r Schedule Discharge Ambulatory referral to Neurology Outpatient Referral Routine Cerebrovascular accident (CVA), unspecified mechanism (CMS/HCC) Cerebrovascular accident (CVA) due to embolism of right posterior cerebral artery (CMS/HCC) Expected: 02/28/2025, Expires: 06/02/2026 documented as of this encounter Procedures Procedure Name Priority Date/Time Associated Diagnosis Comments POCT GLUCOSE METER UNSOLICITED RESULTS Routine 11/29/2024 11:27 AM EDT CBC W/O DIFFERENTIAL Routine 11/29/2024 8:19 AM EDT POCT GLUCOSE METER UNSOLICITED RESULTS Routine 11/29/2024 7:51 AM EDT POCT GLUCOSE METER UNSOLICITED RESULTS Routine 11/29/2024 4:20 AM EDT PROTHROMBIN TIME(PT) / INR Routine 11/29/2024 4:00 AM EDT BASIC METABOLIC PANEL, PLASMA Routine 11/29/2024 4:00 AM EDT POCT GLUCOSE METER UNSOLICITED RESULTS Routine 11/28/2024 11:49 PM EDT POCT GLUCOSE METER UNSOLICITED RESULTS Routine 11/28/2024 7:59 PM EDT PEP THERAPY Routine 11/28/2024 6:27 PM EDT PEP THERAPY Routine 11/28/2024 6:27 PM EDT PEP THERAPY Routine 11/28/2024 6:27 PM EDT PEP THERAPY Routine 11/28/2024 6:27 PM EDT OXYGEN THERAPY Routine 11/28/2024 6:19 PM EDT OXYGEN THERAPY Routine 11/28/2024 6:19 PM EDT POCT GLUCOSE METER UNSOLICITED RESULTS Routine 11/28/2024 5:13 PM EDT POCT GLUCOSE METER UNSOLICITED RESULTS Routine 11/28/2024 11:59 AM EDT POCT GLUCOSE METER UNSOLICITED RESULTS Routine 11/28/2024 8:20 AM EDT OXYGEN THERAPY STAT 11/28/2024 8:00 AM EDT POCT GLUCOSE METER UNSOLICITED RESULTS Routine 11/28/2024 6:37 AM EDT POCT GLUCOSE METER UNSOLICITED RESULTS Routine 11/28/2024 6:11 AM EDT PROTHROMBIN TIME(PT) / INR Routine 11/28/2024 5:09 AM EDT BASIC METABOLIC PANEL, PLASMA Routine 11/28/2024 5:09 AM EDT POCT GLUCOSE METER UNSOLICITED RESULTS Routine 11/28/2024 3:49 AM EDT POCT GLUCOSE METER UNSOLICITED RESULTS Routine 11/28/2024 1:32 AM EDT POCT GLUCOSE METER UNSOLICITED RESULTS Routine 11/28/2024 1:07 AM EDT OXYGEN THERAPY STAT 11/27/2024 8:00 PM EDT POCT GLUCOSE METER UNSOLICITED RESULTS Routine 11/27/2024 7:56 PM EDT POCT GLUCOSE METER UNSOLICITED RESULTS Routine 11/27/2024 3:49 PM EDT ECG ADULT Routine 11/27/2024 3:32 PM EDT POCT GLUCOSE METER UNSOLICITED RESULTS Routine 11/27/2024 11:29 AM EDT OXYGEN THERAPY STAT 11/27/2024 8:00 AM EDT POCT GLUCOSE METER UNSOLICITED RESULTS Routine 11/27/2024 7:34 AM EDT PROTHROMBIN TIME(PT) / INR Routine 11/27/2024 5:21 AM EDT CBC W/O DIFFERENTIAL Routine 11/27/2024 5:21 AM EDT BASIC METABOLIC PANEL, PLASMA Routine 11/27/2024 5:21 AM EDT POCT GLUCOSE METER UNSOLICITED RESULTS Routine 11/27/2024 3:34 AM EDT CHEST PHYSIOTHERAPY / AIRWAY CLEARANCE Routine 11/27/2024 3:01 AM EDT POCT GLUCOSE METER UNSOLICITED RESULTS Routine 11/26/2024 10:48 PM EDT POCT GLUCOSE METER UNSOLICITED RESULTS Routine 11/26/2024 10:21 PM EDT POCT GLUCOSE METER UNSOLICITED RESULTS Routine 11/26/2024 10:05 PM EDT POCT GLUCOSE METER UNSOLICITED RESULTS Routine 11/26/2024 9:58 PM EDT POCT GLUCOSE METER UNSOLICITED RESULTS Routine 11/26/2024 9:30 PM EDT CHEST PHYSIOTHERAPY / AIRWAY CLEARANCE Routine 11/26/2024 9:01 PM EDT OXYGEN THERAPY STAT 11/26/2024 8:00 PM EDT POCT GLUCOSE METER UNSOLICITED RESULTS Routine 11/26/2024 7:56 PM EDT POCT GLUCOSE METER UNSOLICITED RESULTS Routine 11/26/2024 4:07 PM EDT CHEST PHYSIOTHERAPY / AIRWAY CLEARANCE Routine 11/26/2024 3:01 PM EDT POCT GLUCOSE METER UNSOLICITED RESULTS Routine 11/26/2024 11:41 AM EDT CHEST PHYSIOTHERAPY / AIRWAY CLEARANCE Routine 11/26/2024 9:01 AM EDT PROTHROMBIN TIME(PT) / INR Routine 11/26/2024 8:27 AM EDT BASIC METABOLIC PANEL, PLASMA Routine 11/26/2024 8:27 AM EDT POCT GLUCOSE METER UNSOLICITED RESULTS Routine 11/26/2024 8:04 AM EDT OXYGEN THERAPY STAT 11/26/2024 8:00 AM EDT CHEST PHYSIOTHERAPY / AIRWAY CLEARANCE Routine 11/26/2024 3:01 AM EDT CHEST PHYSIOTHERAPY / AIRWAY CLEARANCE Routine 11/25/2024 9:01 PM EDT OXYGEN THERAPY STAT 11/25/2024 8:00 PM EDT POCT GLUCOSE METER UNSOLICITED RESULTS Routine 11/25/2024 7:48 PM EDT BLOOD CULTURE (AEROBIC/ANAEROBIC SET) Routine 11/25/2024 4:42 PM EDT POCT GLUCOSE METER UNSOLICITED RESULTS Routine 11/25/2024 4:34 PM EDT CHEST PHYSIOTHERAPY / AIRWAY CLEARANCE Routine 11/25/2024 3:01 PM EDT CHEST PHYSIOTHERAPY / AIRWAY CLEARANCE Routine 11/25/2024 3:01 PM EDT CHEST PHYSIOTHERAPY / AIRWAY CLEARANCE Routine 11/25/2024 3:01 PM EDT CHEST PHYSIOTHERAPY / AIRWAY CLEARANCE Routine 11/25/2024 3:01 PM EDT POCT GLUCOSE METER UNSOLICITED RESULTS Routine 11/25/2024 12:09 PM EDT METHICILLIN RESISTANT STAPHYLOCOCCUS AUREUS (MRSA) BY PCR Routine 11/25/2024 11:47 AM EDT PROTHROMBIN TIME(PT) / INR Routine 11/25/2024 8:46 AM EDT PROCALCITONIN, PLASMA Routine 11/25/2024 8:45 AM EDT CBC W/O DIFFERENTIAL Routine 11/25/2024 8:45 AM EDT BASIC METABOLIC PANEL, PLASMA Routine 11/25/2024 8:45 AM EDT POCT GLUCOSE METER UNSOLICITED RESULTS Routine 11/25/2024 8:23 AM EDT OXYGEN THERAPY STAT 11/25/2024 8:00 AM EDT POCT GLUCOSE METER UNSOLICITED RESULTS Routine 11/25/2024 5:24 AM EDT POCT GLUCOSE METER UNSOLICITED RESULTS Routine 11/25/2024 4:[address] CHEST W IV CONTRAST Routine 3:44 AM EDT POCT GLUCOSE METER UNSOLICITED RESULTS Routine 11/24/2024 11:07 PM EDT POCT GLUCOSE METER UNSOLICITED RESULTS Routine 11/24/2024 9:55 PM EDT OXYGEN THERAPY STAT 11/24/2024 8:00 PM EDT POCT GLUCOSE METER UNSOLICITED RESULTS Routine 11/24/2024 5:47 PM EDT POCT GLUCOSE METER UNSOLICITED RESULTS Routine 11/24/2024 5:45 PM EDT URINE CULTURE Routine 11/24/2024 4:18 PM EDT RESPIRATORY CULTURE AND GRAM STAIN Routine 11/24/2024 4:17 PM EDT XR CHEST 1 VIEW Routine 11/24/2024 12:03 PM EDT POCT GLUCOSE METER UNSOLICITED RESULTS Routine 11/24/2024 11:52 AM EDT POCT GLUCOSE METER UNSOLICITED RESULTS Routine 11/24/2024 11:19 AM EDT POCT GLUCOSE METER UNSOLICITED RESULTS Routine 11/24/2024 11:18 AM EDT OXYGEN THERAPY STAT 11/24/2024 8:00 AM EDT POCT GLUCOSE METER UNSOLICITED RESULTS Routine 11/24/2024 5:23 AM EDT PROCALCITONIN, PLASMA Add-On 11/24/2024 5:03 AM EDT PROTHROMBIN TIME(PT) / INR Routine 11/24/2024 5:03 AM EDT CBC WITH AUTO DIFFERENTIAL Routine 11/24/2024 5:03 AM EDT COMPREHENSIVE METABOLIC PANEL, PLASMA Routine 11/24/2024 5:03 AM EDT POCT GLUCOSE METER UNSOLICITED RESULTS Routine 11/23/2024 11:23 PM EDT OXYGEN THERAPY STAT 11/23/2024 8:00 PM EDT POCT GLUCOSE METER UNSOLICITED RESULTS Routine 11/23/2024 6:04 PM EDT FL MODIFIED BARIUM SWALLOW Routine 11/23/2024 1:30 PM EDT POCT GLUCOSE METER UNSOLICITED RESULTS Routine 11/23/2024 11:17 AM EDT OXYGEN THERAPY STAT 11/23/2024 8:00 AM EDT POCT GLUCOSE METER UNSOLICITED RESULTS Routine 11/23/2024 5:31 AM EDT PROTHROMBIN TIME(PT) / INR Routine 11/23/2024 2:53 AM EDT CBC WITH AUTO DIFFERENTIAL Routine 11/23/2024 2:53 AM EDT COMPREHENSIVE METABOLIC PANEL, PLASMA Routine 11/23/2024 2:53 AM EDT POCT GLUCOSE METER UNSOLICITED RESULTS Routine 11/22/2024 11:42 PM EDT OXYGEN THERAPY STAT 11/22/2024 8:00 PM EDT POCT GLUCOSE METER UNSOLICITED RESULTS Routine 11/22/2024 5:04 PM EDT HC EEG,W/AWAKE & ASLEEP RECORD Routine 11/22/2024 1:41 PM EDT POCT GLUCOSE METER UNSOLICITED RESULTS Routine 11/22/2024 12:07 PM EDT INSERT PERIPHERAL IV Routine 11/22/2024 10:02 AM EDT PROTHROMBIN TIME(PT) / INR Routine 11/22/2024 9:42 AM EDT CBC WITH AUTO DIFFERENTIAL Routine 11/22/2024 9:42 AM EDT COMPREHENSIVE METABOLIC PANEL, PLASMA Routine 11/22/2024 9:42 AM EDT OXYGEN THERAPY STAT 11/22/2024 8:00 AM EDT WOUND OSTOMY EVAL AND TREAT Routine 11/22/2024 7:[address] HEAD WO IV CONTRAST STAT 6:21 AM EDT POCT GLUCOSE METER UNSOLICITED RESULTS Routine 11/22/2024 12:15 AM EDT OXYGEN THERAPY STAT 11/21/2024 8:00 PM EDT XR ABDOMEN 1 VIEW Routine 11/21/2024 5:4 5 PM EDT XR CHEST 1 VIEW STAT 11/21/2024 5:06 PM EDT POCT GLUCOSE METER UNSOLICITED RESULTS Routine 11/21/2024 4:34 PM EDT POCT GLUCOSE METER UNSOLICITED RESULTS Routine 11/21/2024 12:01 PM EDT ECHO, ADULT TRANSTHORACIC COMPLETE W/ CONTRAST Routine 11/21/2024 10:42 AM EDT OXYGEN THERAPY STAT 11/21/2024 8:00 AM EDT POCT GLUCOSE METER UNSOLICITED RESULTS Routine 11/21/2024 7:57 AM EDT LIPID PROFILE, PLASMA Routine 11/21/2024 3:11 AM EDT POCT GLUCOSE METER UNSOLICITED RESULTS Routine 11/20/2024 9:00 PM EDT OXYGEN THERAPY STAT 11/20/2024 8:00 PM EDT POCT GLUCOSE METER UNSOLICITED RESULTS Routine 11/20/2024 5:32 PM EDT TROPONIN T, HIGH SENSITIVITY, 2 HOUR, PLASMA Timed 11/20/2024 3:26 PM EDT APTT STAT 11/20/2024 3:26 PM EDT PROTHROMBIN TIME(PT) / INR STAT 11/20/2024 3:26 PM EDT ANTI XA LEVEL UNFRACTIONATED HEPARIN STAT 11/20/2024 3:26 PM EDT TSH Routine 11/20/2024 2:28 PM EDT HEMOGLOBIN A1C Routine 11/20/2024 2:28 PM EDT TROPONIN T, HIGH SENSITIVITY, 0 HOUR, PLASMA, REFLEX TO 2 HOUR STAT 11/20/2024 1:39 PM EDT CBC WITH AUTO DIFFERENTIAL STAT 11/20/2024 1:39 PM EDT TEST QUALITATIVE PLASMA STAT 11/20/2024 1:39 PM EDT COMPREHENSIVE METABOLIC PANEL, PLASMA STAT 11/20/2024 1:39 PM EDT ECG ADULT STAT 11/20/2024 1:[address] ANGIO NECK STAT 11/20/2024 1:[address] ANGIO HEAD STAT 11/20/2024 1:[address] HEAD WO IV CONTRAST STAT 1:09 PM EDT POCT GLUCOSE METER UNSOLICITED RESULTS Routine 11/20/2024 1:01 PM EDT OXYGEN THERAPY STAT 11/20/2024 12:59 PM EDT OXYGEN THERAPY STAT 11/20/2024 12:59 PM EDT OXYGEN THERAPY STAT 11/20/2024 12:59 PM EDT documented in this encounter Results * (ABNORMAL) POCT glucose meter (11/29/2024 11:27 AM EDT) Pathologist [facility] POCT Glucose 322(H) 74 - 99 mg/dL 11/29/2024 11:29 AM EDT [facility] Comment:Accuracy of a glucos e result obtained from a capillary whole blood specimen relies upon adequate, non-compromised capillary blood flow. If the capillary glucose result is not consistent with the patient's clinical signs and symptoms, glucose testing should be repeated with either an arterial or venous sample on the glucometer or sent to the main labortory for testing. Comment 11/29/2024 11:29 AM EDT [facility] Vp Genetic ID Nikky Tidwell 11/29/2024 11:29 AM EDT [facility] Device ID [id number] 11/29/2024 11:29 AM EDT [facility] Specimen Type POC Capillary 11/29/2024 11:29 AM EDT [facility] Blood Capillary blood specimen / Unknown 11/29/2024 11:27 AM EDT 11/29/2024 11:29 AM EDT Isael Sage MD LAB POINT OF CARE TE ST DOCKED DEVICE UNSOLICITED RESULTS Final Result [facility] [address] [place] [id number] * (ABNORMAL) CBC W/O Differential (11/29/2024 8:19 AM EDT) WBC Count 9.32 3.70 - 10.30 10*3/uL LAB HEMATOLOGY METHOD 11/29/2024 8:34 AM EDT [facility] RBC Count 3.51(L) 3.90 - 5.20 10*6/uL LAB HEMATOLOGY METHOD 11/29/2024 8:34 AM EDT [facility] HGB 10.6(L) 11.2 - 15.7 g/dL LAB HEMATOLOGY METHOD 11/29/2024 8:34 AM EDT [facility] HCT 33.9(L) 34.0 - 45.0 % LAB HEMATOLOGY METHOD 11/29/2024 8:34 AM EDT [facility] Platelet Count 354 155 - 369 10*3/uL LAB HEMATOLOGY METHOD 11/29/2024 8:34 AM EDT [facility] MCV 97 79 - 98 fL LAB HEMATOLOGY METHOD 11/29/2024 8:34 AM EDT [facility] MCH 30.2 26.0 - 32.0 pg LAB HEMATOLOGY METHOD 11/29/2024 8:34 AM EDT [facility] MCHC 31.3 30.7 - 35.5 g/dL LAB HEMATOLOGY METHOD 11/29/2024 8:34 AM EDT [facility] RDW 14.7(H) 11.5 - 14.5 % LAB HEMATOLOGY METHOD 11/29/2024 8:34 AM EDT [facility] MPV 9.7 8.8 - 12.5 fL LAB HEMATOLOGY METHOD 11/29/2024 8:34 AM EDT [facility] nRBC 0.0 <=0.0 per 100 WBCs LAB HEMATOLOGY METHOD 11/29/2024 8:34 AM EDT [facility] Blood Venous blood specimen / Unknown Venipuncture / Unknown 11/29/2024 8:19 AM EDT 11/29/2024 8:27 AM EDT Isael Sage MD LAB BLOOD ORDERABLES Final R esult Performing Organization Address City/[facility] Co de Phone Number [facility] [address] [place] [address] * (ABNORMAL) POCT glucose meter (11/29/2024 7:51 AM EDT) POCT Glucose 118(H) 74 - 99 mg/dL 11/29/2024 7:57 AM EDT [facility] Comment:Accuracy of a glucos e result obtained from a capillary whole blood specimen relies upon adequate, non-compromised capillary blood flow. If the capillary glucose result is not consistent with the patient's clinical signs and symptoms, glucose testing should be repeated with either an arterial or venous sample on the glucometer or sent to the main labortory for testing. Comment 11/29/2024 7:57 AM EDT [facility] Vp Genetic ID Shabana Tee 11/30/19 7:57 AM EDT [facility]ALTH[facility]ARE LAB Device ID [id number] 11/29/2024 7:57 AM EDT [facility] Specimen Type POC Capillary 11/29/2024 7:57 AM EDT [facility] Blood Capillary blood specimen / Unknown 11/29/2024 7:51 AM EDT 11/29/2024 7:57 AM EDT us Isael Sage MD LAB POINT OF CARE TE ST DOCKED DEVICE UNSOLICITED RESULTS Final Result Performing Organization Address City/[facility]/ZIP Co de Phone Number [facility] [address] [place] [address] * (ABNORMAL) POCT glucose meter (11/29/2024 4:20 AM EDT) POCT Glucose 169(H) 74 - 99 mg/dL 11/29/2024 4:22 AM EDT [facility] Comment:Accuracy of a glucos e result obtained from a capillary whole blood specimen relies upon adequate, non-compromised capillary blood flow. If the capillary glucose result is not consistent with the patient's clinical signs and symptoms, glucose testing should be repeated with either an arterial or venous sample on the glucometer or sent to the main labortory for testing. Comment 11/29/2024 4:22 AM EDT [facility] Vp Genetic ID Ania Styles 11/29/2024 4:22 AM EDT [facility] Device ID [id number] 11/29/2024 4:22 AM EDT [facility] Specimen Type POC Capillary 11/29/2024 4:22 AM EDT [facility] Blood Capillary blood specimen / Unknown 11/29/2024 4:20 AM EDT 11/29/2024 4:22 AM EDT Cirilo Majano MD LAB POINT OF CARE TE ST DOCKED DEVICE UNSOLICITED RESULTS Final Result Performing Organization Address City/State/[facility] Co de Phone Number [facility] [address] [place] [address] * (ABNORMAL) Prothrombin Time/INR (11/29/2024 4:00 AM EDT) Prothrombin Time 37.9(H) 12.0 - 14.3 sec LAB COAGULATION METHOD 11/29/2024 4:53 AM EDT [facility] INR 3.8(H) 0.9 - 1.1 LAB COAGULATION METHOD 11/29/2024 4:53 AM EDT [facility] Blood Venous blood specimen / Unknown Venipuncture / Unknown 11/29/2024 4:00 AM EDT 11/29/2024 4:32 AM EDT Narrative [facility] - 11/29/2024 4:53 AM EDT OPTIMAL INR RANGES FOR PATIENT ON ORAL ANTICOAGULANT THERAPY Prevention of venous thromboembolism INR 2.0 to 3.0 In patients with heart disease: Atrial fibrillation INR 2.0 to 3.0 Valvular heart disease INR 2.0 to 3.0 Tissue heart valves INR 2.0 to 3.0 Mechanical prosthetic valves INR 2.5 to 3.5 Prevention of recurrent [place] INR 2.5 to 3.5 us Marisabel Subramanian MD LAB BLOOD ORDERABLES Final Re sult [facility] [address] [place] [address] * (ABNORMAL) Basic metabolic panel (11/29/2024 4:00 AM EDT) Glucose, Plasma 130(H) 74 - 99 mg/dL 11/29/2024 4:57 AM EDT [facility] BUN, Plasma 14 8 - 23 mg/dL 11/29/2024 4:57 AM EDT [facility] Creatinine, Plasma 0.88 0.60 - 1.10 mg/dL 11/29/2024 4:57 AM EDT [facility] BUN/Creatinine Ratio 16 11/29/2024 4:57 AM EDT [facility] Sodium, Plasma 137 136 - 145 mmol/L 11/29/2024 4:57 AM EDT [facility] Potassium, Plasma 3.7 3.6 - 4.9 mmol/L 11/29/2024 4:57 AM EDT [facility] Chloride, Plasma 95(L) 97 - 107 mmol/L 11/29/2024 4:57 AM EDT [facility] CO2, Plasma 31(H) 22 - 29 mmol/L 11/29/2024 4:57 AM EDT [facility] Anion Gap 11 6 - 16 mmol/L 11/29/2024 4:57 AM EDT [facility] Total Calcium, Plasma 8.3(L) 8.9 - 10.2 mg/dL 11/29/2024 4:57 AM EDT [facility] eGFRcr 69.5 mL/min/1.7 3m*2 11/29/2024 4:57 AM EDT [facility] Comment:Reported eGFRcr in m L/min/1.73m2 is based the CKD-EPI 2020 equation that does not use a race coefficient. Blood Venous blood specimen / Unknown Venipuncture / Unknown 11/29/2024 4:00 AM EDT 11/29/2024 4:31 AM EDT Cirilo Majano MD LAB BLOOD ORDERABLES Final R esult Performing Organization Address City/[facility]/ZIP Co de Phone Number [facility] [address] [place] [address] * (ABNORMAL) POCT glucose meter (11/28/2024 11:49 PM EDT) POCT Glucose 122(H) 74 - 99 mg/dL 11/28/2024 11:50 PM EDT [facility] Comment:Accuracy of [...] to the main labortory for testing. Comment 11/28/2024 11:50 PM EDT [facility] Vp Genetic ID Ania Styles 11/28/2024 11:50 PM EDT [facility]ARE LAB Device ID [id number] 11/28/2024 11:50 PM EDT [facility] Specimen Type POC Capillary 11/28/2024 11:50 PM EDT [facility] Blood Capillary blood specimen / Unknown 11/28/2024 11:49 PM EDT 11/28/2024 11:50 PM EDT Cirilo Majano MD LAB POINT OF CARE TE ST DOCKED DEVICE UNSOLICITED RESULTS Final Result [facility] [address] [place] [address] * POCT glucose meter (11/28/2024 7:59 PM EDT) POCT Glucose 93 74 - 99 mg/dL 11/28/2024 8:01 PM EDT [facility] Comment:Accuracy of [...] to the main labortory for testing. Comment 11/28/2024 8:01 PM EDT [facility] Vp Genetic ID Ania Styles 11/28/2024 8:01 PM EDT [facility] Device ID [id number] 11/28/2024 8:01 PM EDT [facility] Specimen Type POC Capillary 11/28/2024 8:01 PM EDT [facility] Blood Capillary blood specimen / Unknown 11/28/2024 7:59 PM EDT 11/28/2024 8:01 PM EDT us Cirilo Majano MD LAB POINT OF CARE TE ST DOCKED DEVICE UNSOLICITED RESULTS Final Result Performing Organization Address City/State/[facility] Co de Phone Number [facility] [address] [place] [address] * POCT glucose meter (11/28/2024 5:13 PM EDT) [facility] POCT Glucose 91 74 - 99 mg/dL 11/28/2024 5:15 PM EDT [facility] Comment:Accuracy of a glucos e result obtained from a capillary whole blood specimen relies upon adequate, non-compromised capillary blood flow. If the capillary glucose result is not consistent with the patient's clinical signs and symptoms, glucose testing should be repeated with either an arterial or venous sample on the glucometer or sent to the main labortory for testing. Comment 11/28/2024 5:15 PM EDT [facility] Vp Genetic ID Negrita Ghotra 11/28/2024 5:15 PM EDT [facility] Device ID [id number] 11/28/2024 5:15 PM EDT [facility] Specimen Type POC Capillary 11/28/2024 5:15 PM EDT [facility] Blood Capillary blood specimen / Unknown 11/28/2024 5:13 PM EDT 11/28/2024 5:15 PM EDT us Cirilo Majano MD LAB POINT OF CARE TE ST DOCKED DEVICE UNSOLICITED RESULTS Final Result Performing Organization Address [facility] Co de Phone Number [facility] [address] [place] [address] * (ABNORMAL) POCT glucose meter (11/28/2024 11:59 AM EDT) Pathologist [facility] POCT Glucose 214(H) 74 - 99 mg/dL 11/28/2024 12:01 PM EDT [facility] Comment:Accuracy [...] to the main labortory for testing. Comment 11/28/2024 12:01 PM EDT [facility] Vp Genetic ID GhotraNegrita 11/28/2024 12:01 PM EDT [facility]ARE [facility] Device ID [id number] 11/28/2024 12:01 PM EDT [facility] Specimen Type POC Capillary 11/28/2024 12:01 PM EDT [facility] Blood Capillary blood specimen / Unknown 11/28/2024 11:59 AM EDT 11/28/2024 12:01 PM EDT Result [facility] Cirilo Majano MD LAB POINT OF CARE TE ST DOCKED DEVICE UNSOLICITED RESULTS Final Result Performing Organization Address [facility] Co de Phone Number [facility] [address] [place] [address] * (ABNORMAL) POCT glucose meter (11/28/2024 8:20 AM EDT) Pathologist [facility] POCT Glucose 111(H) 74 - 99 mg/dL 11/28/2024 8:22 AM EDT [facility] Comment:Accuracy of [...] to the main labortory for testing. Comment 11/28/2024 8:22 AM EDT [facility] Vp Genetic ID Negrita Ghotra 11/28/2024 8:22 AM EDT [facility] Device ID [id number] 11/28/2024 8:22 AM EDT [facility] Specimen Type POC Capillary 11/28/2024 8:22 AM EDT [facility] Blood Capillary blood specimen / Unknown 11/28/2024 8:20 AM EDT 11/28/2024 8:22 AM EDT Cirilo Majano MD LAB POINT OF CARE TE ST DOCKED DEVICE UNSOLICITED RESULTS Final Result Performing Organization Address City/[facility]/ZIP Co de Phone Number [facility] [address] [place] [address] * (ABNORMAL) POCT glucose meter (11/28/2024 6:37 AM EDT) [facility] POCT Glucose 174(H) 74 - 99 mg/dL 11/28/2024 6:39 AM EDT [facility] Comment:Accuracy of [...] to the main labortory for testing. Comment 11/28/2024 6:39 AM EDT [facility] Vp Genetic ID Temitope Pearl 11/28/2024 6:39 AM EDT [facility] Device ID [id number] 11/28/2024 6:39 AM EDT [facility] Specimen Type POC Capillary 11/28/2024 6:39 AM EDT [facility] Blood Capillary blood specimen / Unknown 11/28/2024 6:37 AM EDT 11/28/2024 6:39 AM EDT us Cirilo Majano MD LAB POINT OF CARE TE ST DOCKED DEVICE UNSOLICITED RESULTS Final Result [facility] [address] [place] [address] * (ABNORMAL) POCT glucose meter (11/28/2024 6:11 AM EDT) Pathologist [facility] POCT Glucose 40(LL) 74 - 99 mg/dL 11/28/2024 6:12 AM EDT [facility] Comment:Accuracy of a glucos e result obtained from a capillary whole blood specimen relies upon adequate, non-compromised capillary blood flow. If the capillary glucose result is not consistent with the patient's clinical signs and symptoms, glucose testing should be repeated with either an arterial or venous sample on the glucometer or sent to the main labortory for testing. Comment 11/28/2024 6:12 AM EDT [facility] Vp Genetic ID Temitope Pearl 11/28/2024 6:12 AM EDT [facility] Device ID [id number] 11/28/2024 6:12 AM EDT [facility] Specimen Type POC Capillary 11/28/2024 6:12 AM EDT [facility] Blood Capillary blood specimen / Unknown 11/28/2024 6:11 AM EDT 11/28/2024 6:12 AM EDT Cirilo Majano MD LAB POINT OF CARE TE ST DOCKED DEVICE UNSOLICITED RESULTS Final Result Performing Organization Address City/State/[facility] de Phone Number [facility] [address] [place] [address] * (ABNORMAL) Prothrombin Time/INR (11/28/2024 5:09 AM EDT) Pathologist [facility] Prothrombin Time 30.6(H) 12.0 - 14.3 sec LAB COAGULATION METHOD 11/28/2024 5:50 AM EDT [facility] INR 2.9(H) 0.9 - 1.1 LAB COAGULATION METHOD 11/28/2024 5:50 AM EDT [facility] Blood Venous blood specimen / Unknown Venipuncture / Unknown 11/28/2024 5:09 AM EDT 11/28/2024 5:19 AM EDT Narrative [facility] - 11/28/2024 5:50 AM EDT OPTIMAL INR RANGES FOR PATIENT ON ORAL ANTICOAGULANT THERAPY Prevention of venous thromboembolism INR 2.0 to 3.0 In patients with heart disease: Atrial fibrillation INR 2.0 to 3.0 Valvular heart disease INR 2.0 to 3.0 Tissue heart valves INR 2.0 to 3.0 Mechanical prosthetic valves INR 2.5 to 3.5 Prevention of recurrent [place] INR 2.5 to 3.5 us Marisabel Subramanian MD LAB BLOOD ORDERABLES Final Re sult [facility] [address] [place] [address] * (ABNORMAL) Basic metabolic panel (11/28/2024 5:09 AM EDT) Glucose, Plasma 53(L) 74 - 99 mg/dL 11/28/2024 5:47 AM EDT [facility] BUN, Plasma 13 8 - 23 mg/dL 11/28/2024 5:47 AM EDT [facility] Creatinine, Plasma 0.77 0.60 - 1.10 mg/dL 11/28/2024 5:47 AM EDT [facility] BUN/Creatinine Ratio 17 11/28/2024 5:47 AM EDT [facility] Sodium, Plasma 139 136 - 145 mmol/L 11/28/2024 5:47 AM EDT [facility] Potassium, Plasma 3.7 3.6 - 4.9 mmol/L 11/28/2024 5:47 AM EDT [facility] Chloride, Plasma 97 97 - 107 mmol/L 11/28/2024 5:47 AM EDT [facility] CO2, Plasma 30(H) 22 - 29 mmol/L 11/28/2024 5:47 AM EDT [facility] Anion Gap 12 6 - 16 mmol/L 11/28/2024 5:47 AM EDT [facility] Total Calcium, Plasma 8.6(L) 8.9 - 10.2 mg/dL 11/28/2024 5:47 AM EDT [facility] eGFRcr 81.6 mL/min/1.7 3m*2 11/28/2024 5:47 AM EDT [facility] Comment:Reported eGFRcr in m L/min/1.73m2 is based the CKD-EPI 2020 equation that does not use a race coefficient. Blood Venous blood specimen / Unknown Venipuncture / Unknown 11/28/2024 5:09 AM EDT 11/28/2024 5:19 AM EDT Cirilo Majano MD LAB BLOOD ORDERABLES Final R esult [facility] [address] [place] [address] * (ABNORMAL) POCT glucose meter (11/28/2024 3:49 AM EDT) Pathologist [facility] POCT Glucose 104(H) 74 - 99 mg/dL 11/28/2024 3:52 AM EDT [facility] Comment:Accuracy of [...] to the main labortory for testing. Comment 11/28/2024 3:52 AM EDT [facility] Vp Genetic ID Chase Fabian 3:52 AM EDT [facility] Device ID [id number] 11/28/2024 3:52 AM EDT [facility] Specimen Type POC Capillary 11/28/2024 3:52 AM EDT [facility] Blood Capillary blood specimen / Unknown 11/28/2024 3:49 AM EDT 11/28/2024 3:52 AM EDT us Cirilo Majano MD LAB POINT OF CARE TE ST DOCKED DEVICE UNSOLICITED RESULTS Final Result Performing Organization Address City/[facility]/ZIP Co de Phone Number [facility] [address] [place] [address] * (ABNORMAL) POCT glucose meter (11/28/2024 1:32 AM EDT) [facility] POCT Glucose 183(H) 74 - 99 mg/dL 11/28/2024 3:46 AM EDT [facility] Comment:Accuracy of [...] to the main labortory for testing. Comment 11/28/2024 3:46 AM EDT [facility] Vp Genetic ID Temitope Pearl 11/28/2024 3:46 AM EDT [facility] Device ID [id number] 11/28/2024 3:46 AM EDT [facility] Specimen Type POC Capillary 11/28/2024 3:46 AM EDT [facility] Blood Capillary blood specimen / Unknown 11/28/2024 1:32 AM EDT 11/28/2024 3:46 AM EDT us Cirilo Majano MD LAB POINT OF CARE TE ST DOCKED DEVICE UNSOLICITED RESULTS Final Result Performing Organization Address City/State/[facility] Co de Phone Number [facility] [address] [place] [address] * (ABNORMAL) POCT glucose meter (11/28/2024 1:07 AM EDT) [facility] POCT Glucose 34(LL) 74 - 99 mg/dL 11/28/2024 1:11 AM EDT [facility] Comment:Accuracy of a glucos e result obtained from a capillary whole blood specimen relies upon adequate, non-compromised capillary blood flow. If the capillary glucose result is not consistent with the patient's clinical signs and symptoms, glucose testing should be repeated with either an arterial or venous sample on the glucometer or sent to the main labortory for testing. Comment 11/28/2024 1:11 AM EDT [facility] Vp Genetic ID Chase Fabian 1:11 AM EDT [facility] Device ID [id number] 11/28/2024 1:11 AM EDT [facility] Specimen Type POC Capillary 11/28/2024 1:11 AM EDT [facility] Blood Capillary blood specimen / Unknown 11/28/2024 1:07 AM EDT 11/28/2024 1:11 AM EDT us Cirilo Majano MD LAB POINT OF CARE TE ST DOCKED DEVICE UNSOLICITED RESULTS Final Result Performing Organization Address [facility] Co de Phone Number [facility] [address] [place] [address] * (ABNORMAL) POCT glucose meter (11/27/2024 7:56 PM EDT) Pathologist [facility] POCT Glucose 213(H) 74 - 99 mg/dL 11/27/2024 7:58 PM EDT [facility] Comment:Accuracy of [...] to the main labortory for testing. Comment 11/27/2024 7:58 PM EDT [facility] Vp Genetic ID Chase Fabian 7:58 PM EDT [facility] Device ID [id number] 11/27/2024 7:58 PM EDT [facility] Specimen Type POC Capillary 11/27/2024 7:58 PM EDT [facility] Blood Capillary blood specimen / Unknown 11/27/2024 7:56 PM EDT 11/27/2024 7:58 PM EDT Cirilo Majano MD LAB POINT OF CARE TE ST DOCKED DEVICE UNSOLICITED RESULTS Final Result Performing Organization Address [facility] Co de Phone Number [facility] [address] [place] [address] * (ABNORMAL) POCT glucose meter (11/27/2024 3:49 PM EDT) Pathologist [facility] POCT Glucose 335(H) 74 - 99 mg/dL 11/27/2024 3:50 PM EDT [facility] Comment:Accuracy of [...] to the main labortory for testing. Comment 11/27/2024 3:50 PM EDT [facility] Vp Genetic ID Lavern Calix 025 3:50 PM EDT [facility]ALTH[facility]ARE LAB Device ID [id number] 11/27/2024 3:50 PM EDT [facility] Specimen Type POC Capillary 11/27/2024 3:50 PM EDT [facility] Blood Capillary blood specimen / Unknown 11/27/2024 3:49 PM EDT 11/27/2024 3:50 PM EDT Cirilo Majano MD LAB POINT OF CARE TE ST DOCKED DEVICE UNSOLICITED RESULTS Final Result Performing Organization Address City/[facility]/ZIP Co de Phone Number [facility] [address] [place] [address] * ECG Adult (11/27/2024 3:32 PM EDT) Pathologist [facility] EKG DIAGNOSIS CLASS Abnormal MUSE ECG Ventricular Rate 60 BPM MUSE ECG Atrial Rate 67 BPM MUSE ECG QRSD Interval 174 ms MUSE ECG QT Interval 524 ms MUSE ECG QTC Interval 524 ms MUSE ECG R [place] -80 degrees MUSE ECG T Wave [place] 120 degrees MUSE ECG Diagnosis Ventricular-p aced rhythm MUSE ECG Diagnosis Abnormal ECG MUSE ECG Diagnosis MUSE ECG Diagnosis Confirmed by Deangelo Hargrove ([id number]) on 11/28/2024 11:21:52 AM MUSE ECG 11/27/2024 3:32 PM EDT 11/28/2024 11:21 AM EDT Cirilo Majano MD ECG ORDERABLES Final Result Performing Organization Address City/[facility]/ZIP Co de Phone Number MUSE ECG * (ABNORMAL) POCT glucose meter (11/27/2024 11:29 AM EDT) Pathologist [facility] POCT Glucose [phone]) [phone] mg/dL 11/27/2024 11:30 AM EDT [facility] Comment:Accuracy of [...] to the main labortory for testing. Comment 11/27/2024 11:30 AM EDT [facility] Vp Genetic ID Lavern Calix 025 11:30 AM EDT [facility] Device ID [id number] 11/27/2024 11:30 AM EDT [facility] Specimen Type POC Capillary 11/27/2024 11:30 AM EDT [facility] Blood Capillary blood specimen / Unknown 11/27/2024 11:29 AM EDT 11/27/2024 11:30 AM EDT us Cirilo Majano MD LAB POINT OF CARE TE ST DOCKED DEVICE UNSOLICITED RESULTS Final Result Performing Organization Address City/[facility] Co de Phone Number [facility] [address] [place] [address] * (ABNORMAL) POCT glucose meter (11/27/2024 7:34 AM EDT) POCT Glucose 206(H) 74 - 99 mg/dL 11/27/2024 7:36 AM EDT [facility] Comment:Accuracy of [...] to the main labortory for testing. Comment 11/27/2024 7:36 AM EDT [facility] Vp Genetic ID Lavern Calix 025 7:36 AM EDT [facility] Device ID [id number] 11/27/2024 7:36 AM EDT [facility] Specimen Type POC Capillary 11/27/2024 7:36 AM EDT [facility] Blood Capillary blood specimen / Unknown 11/27/2024 7:34 AM EDT 11/27/2024 7:36 AM EDT us Cirilo Majano MD LAB POINT OF CARE TE ST DOCKED DEVICE UNSOLICITED RESULTS Final Result Performing Organization Address City/[facility]/ZIP Co de Phone Number [facility] [address] [place] [address] * (ABNORMAL) Prothrombin Time/INR (11/27/2024 5:21 AM EDT) Prothrombin Time 30.9(H) 12.0 - 14.3 sec LAB COAGULATION METHOD 11/27/2024 5:48 AM EDT [facility] INR 2.9(H) 0.9 - 1.1 LAB COAGULATION METHOD 11/27/2024 5:48 AM EDT [facility] Blood Venous blood specimen / Unknown Venipuncture / Unknown 11/27/2024 5:21 AM EDT 11/27/2024 5:30 AM EDT Narrative [facility] - 11/27/2024 5:48 AM EDT OPTIMAL INR RANGES FOR PATIENT ON ORAL ANTICOAGULANT THERAPY Prevention of venous thromboembolism INR 2.0 to 3.0 In patients with heart disease: Atrial fibrillation INR 2.0 to 3.0 Valvular heart disease INR 2.0 to 3.0 Tissue heart valves INR 2.0 to 3.0 Mechanical prosthetic valves INR 2.5 to 3.5 Prevention of recurrent [place] INR 2.5 to 3.5 us Marisabel Subramanian MD LAB BLOOD ORDERABLES Final Re sult [facility] [address] [place] [address] * (ABNORMAL) Basic metabolic panel (11/27/2024 5:21 AM EDT) Glucose, Plasma 248(H) 74 - 99 mg/dL 11/27/2024 6:36 AM EDT [facility] BUN, Plasma 18 8 - 23 mg/dL 11/27/2024 6:36 AM EDT [facility] Creatinine, Plasma 0.85 0.60 - 1.10 mg/dL 11/27/2024 6:36 AM EDT [facility] BUN/Creatinine Ratio 21 11/27/2024 6:36 AM EDT [facility] Sodium, Plasma 132(L) 136 - 145 mmol/L 11/27/2024 6:36 AM EDT [facility] Potassium, Plasma 3.5(L) 3.6 - 4.9 mmol/L 11/27/2024 6:36 AM EDT [facility] Chloride, Plasma 91(L) 97 - 107 mmol/L 11/27/2024 6:36 AM EDT [facility] CO2, Plasma 26 22 - 29 mmol/L 11/27/2024 6:36 AM EDT [facility] Anion Gap 15 6 - 16 mmol/L 11/27/2024 6:36 AM EDT [facility] Total Calcium, Plasma 8.4(L) 8.9 - 10.2 mg/dL 11/27/2024 6:36 AM EDT [facility] eGFRcr 72.4 mL/min/1.7 3m*2 11/27/2024 6:36 AM EDT [facility] Comment:Reported eGFRcr in m L/min/1.73m2 is based the CKD-EPI 2020 equation that does not use a race coefficient. Blood Venous blood specimen / Unknown Venipuncture / Unknown 11/27/2024 5:21 AM EDT 11/27/2024 5:29 AM EDT us Cirilo Majano MD LAB BLOOD ORDERABLES Final R esult [facility] [address] [place] [address] * (ABNORMAL) CBC W/O Differential (11/27/2024 5:21 AM EDT) WBC Count 7.96 3.70 - 10.30 10*3/uL LAB HEMATOLOGY METHOD 11/27/2024 5:38 AM EDT [facility] RBC Count 3.43(L) 3.90 - 5.20 10*6/uL LAB HEMATOLOGY METHOD 11/27/2024 5:38 AM EDT [facility] HGB 10.6(L) 11.2 - 15.7 g/dL LAB HEMATOLOGY METHOD 11/27/2024 5:38 AM EDT [facility] HCT 33.7(L) 34.0 - 45.0 % LAB HEMATOLOGY METHOD 11/27/2024 5:38 AM EDT [facility] Platelet Count 310 155 - 369 10*3/uL LAB HEMATOLOGY METHOD 11/27/2024 5:38 AM EDT [facility] MCV 98 79 - 98 fL LAB HEMATOLOGY METHOD 11/27/2024 5:38 AM EDT [facility] MCH 30.9 26.0 - 32.0 pg LAB HEMATOLOGY METHOD 11/27/2024 5:38 AM EDT [facility] MCHC 31.5 30.7 - 35.5 g/dL LAB HEMATOLOGY METHOD 11/27/2024 5:38 AM EDT [facility] RDW 15.0(H) 11.5 - 14.5 % LAB HEMATOLOGY METHOD 11/27/2024 5:38 AM EDT [facility] MPV 9.7 8.8 - 12.5 fL LAB HEMATOLOGY METHOD 11/27/2024 5:38 AM EDT [facility] nRBC 0.0 <=0.0 per 100 WBCs LAB HEMATOLOGY METHOD 11/27/2024 5:38 AM EDT [facility] Blood Venous blood specimen / Unknown Venipuncture / Unknown 11/27/2024 5:21 AM EDT 11/27/2024 5:30 AM EDT us Cirilo Mjaano MD LAB BLOOD ORDERABLES Final R esult [facility] [address] [place] [id number] * (ABNORMAL) POCT glucose meter (11/27/2024 3:34 AM EDT) POCT Glucose 209(H) 74 - 99 mg/dL 11/27/2024 3:35 AM EDT [facility] Comment:Accuracy of [...] to the main labortory for testing. Comment 11/27/2024 3:35 AM EDT [facility] Vp Genetic ID Temitope Pearl 11/27/2024 3:35 AM EDT [facility] Device ID [id number] 11/27/2024 3:35 AM EDT [facility] Specimen Type POC Capillary 11/27/2024 3:35 AM EDT [facility] Blood Capillary blood specimen / Unknown 11/27/2024 3:34 AM EDT 11/27/2024 3:35 AM EDT Cirilo Majano MD LAB POINT OF CARE TE ST DOCKED DEVICE UNSOLICITED RESULTS Final Result Performing Organization Address City/[facility] Co de Phone Number [facility] [address] [place] [address] * POCT glucose meter (11/26/2024 10:48 PM EDT) POCT Glucose 93 74 - 99 mg/dL 11/26/2024 10:50 PM EDT [facility] Comment:Accuracy of [...] to the main labortory for testing. Comment 11/26/2024 10:50 PM EDT [facility] Vp Genetic ID Temitope Pearl 11/26/2024 10:50 PM EDT [facility] Device ID [id number] 11/26/2024 10:50 PM EDT [facility] Specimen Type POC Capillary 11/26/2024 10:50 PM EDT [facility] Blood Capillary blood specimen / Unknown 11/26/2024 10:48 PM EDT 11/26/2024 10:50 PM EDT us Cirilo Majano MD LAB POINT OF CARE TE ST DOCKED DEVICE UNSOLICITED RESULTS Final Result Performing Organization Address City/[facility] Co de Phone Number [facility] [address] [place] [address] * (ABNORMAL) POCT glucose meter (11/26/2024 10:21 PM EDT) POCT Glucose 59(L) 74 - 99 mg/dL 11/26/2024 10:24 PM EDT [facility] Comment:Accuracy of [...] to the main labortory for testing. Comment 11/26/2024 10:24 PM EDT [facility] Vp Genetic ID Temitope Pearl 11/26/2024 10:24 PM EDT [facility] Device ID [id number] 11/26/2024 10:24 PM EDT [facility] Specimen Type POC Capillary 11/26/2024 10:24 PM EDT [facility] Blood Capillary blood specimen / Unknown 11/26/2024 10:21 PM EDT 11/26/2024 10:24 PM EDT Cirilo Majano MD LAB POINT OF CARE TE ST DOCKED DEVICE UNSOLICITED RESULTS Final Result Performing Organization Address City/State/[facility] Co de Phone Number [facility] [address] [place] [address] * (ABNORMAL) POCT glucose meter (11/26/2024 10:05 PM EDT) [facility] POCT Glucose 38(LL) 74 - 99 mg/dL 11/26/2024 10:08 PM EDT [facility] Comment:Accuracy of [...] to the main labortory for testing. Comment 11/26/2024 10:08 PM EDT [facility] Vp Genetic ID Chase Fabian 10:08 PM EDT [facility] Device ID [id number] 11/26/2024 10:08 PM EDT [facility] Specimen Type POC Capillary 11/26/2024 10:08 PM EDT [facility] Blood Capillary blood specimen / Unknown 11/26/2024 10:05 PM EDT 11/26/2024 10:08 PM EDT us Cirilo Majano MD LAB POINT OF CARE TE ST DOCKED DEVICE UNSOLICITED RESULTS Final Result Performing Organization Address [facility] de Phone Number [facility] [address] [place] [address] * (ABNORMAL) POCT glucose meter (11/26/2024 9:58 PM EDT) [facility] POCT Glucose 49(LL) 74 - 99 mg/dL 11/26/2024 10:01 PM EDT [facility] Comment:Accuracy of [...] to the main labortory for testing. Comment 11/26/2024 10:01 PM EDT [facility] Vp Genetic ID Temitope Pearl 11/26/2024 10:01 PM EDT [facility] Device ID [id number] 11/26/2024 10:01 PM EDT [facility] Specimen Type POC Capillary 11/26/2024 10:01 PM EDT [facility] Blood Capillary blood specimen / Unknown 11/26/2024 9:58 PM EDT 11/26/2024 10:01 PM EDT us Cirilo Majano MD LAB POINT OF CARE TE ST DOCKED DEVICE UNSOLICITED RESULTS Final Result Performing Organization Address [facility] Co de Phone Number [facility] [address] [place] [address] * (ABNORMAL) POCT glucose meter (11/26/2024 9:30 PM EDT) [facility] POCT Glucose 53(L) 74 - 99 mg/dL 11/26/2024 9:32 PM EDT [facility] Comment:Accuracy of [...] to the main labortory for testing. Comment 11/26/2024 9:32 PM EDT [facility] Vp Genetic ID Temitope Pearl 11/26/2024 9:32 PM EDT [facility] Device ID [id number] 11/26/2024 9:32 PM EDT [facility] Specimen Type POC Capillary 11/26/2024 9:32 PM EDT [facility] Blood Capillary blood specimen / Unknown 11/26/2024 9:30 PM EDT 11/26/2024 9:32 PM EDT us Cirilo Majano MD LAB POINT OF CARE TE ST DOCKED DEVICE UNSOLICITED RESULTS Final Result Performing Organization Address City/[facility]/ZIP Co de Phone Number [facility] [address] [place] [address] * (ABNORMAL) POCT glucose meter (11/26/2024 7:56 PM EDT) [facility] POCT Glucose 70(L) 74 - 99 mg/dL 11/26/2024 7:58 PM EDT [facility] Comment:Accuracy of [...] to the main labortory for testing. Comment 11/26/2024 7:58 PM EDT [facility] Vp Genetic ID Chase Fabian 7:58 PM EDT [facility] Device ID [id number] 11/26/2024 7:58 PM EDT [facility] Specimen Type POC Capillary 11/26/2024 7:58 PM EDT [facility] Blood Capillary blood specimen / Unknown 11/26/2024 7:56 PM EDT 11/26/2024 7:58 PM EDT us Cirilo Majano MD LAB POINT OF CARE TE ST DOCKED DEVICE UNSOLICITED RESULTS Final Result [facility] [address] [place] [address] * (ABNORMAL) POCT glucose meter (11/26/2024 4:07 PM EDT) [facility] POCT Glucose 203(H) 74 - 99 mg/dL 11/26/2024 4:20 PM EDT [facility] Comment:Accuracy of [...] to the main labortory for testing. Comment 11/26/2024 4:20 PM EDT [facility] Vp Genetic ID Hira Whitten 4:20 PM EDT [facility] Device ID [id number] 11/26/2024 4:20 PM EDT [facility] Specimen Type POC Capillary 11/26/2024 4:20 PM EDT [facility] Blood Capillary blood specimen / Unknown 11/26/2024 4:07 PM EDT 11/26/2024 4:20 PM EDT Cirilo Majano MD LAB POINT OF CARE TE ST DOCKED DEVICE UNSOLICITED RESULTS Final Result Performing Organization Address [facility] Co de Phone Number [facility] [address] [place] [address] * (ABNORMAL) POCT glucose meter (11/26/2024 11:41 AM EDT) [facility] POCT Glucose 277(H) 74 - 99 mg/dL 11/26/2024 11:55 AM EDT [facility] Comment:Accuracy of [...] to the main labortory for testing. Comment 11/26/2024 11:55 AM EDT [facility] Vp Genetic ID Hira Whitten 11:55 AM EDT [facility] Device ID [id number] 11/26/2024 11:55 AM EDT [facility] Specimen Type POC Capillary 11/26/2024 11:55 AM EDT [facility] Blood Capillary blood specimen / Unknown 11/26/2024 11:41 AM EDT 11/26/2024 11:55 AM EDT us Cirilo Majano MD LAB POINT OF CARE TE ST DOCKED DEVICE UNSOLICITED RESULTS Final Result Performing Organization Address [facility] Co de Phone Number [facility] [address] [place] [address] * (ABNORMAL) Prothrombin Time/INR (11/26/2024 8:27 AM EDT) Prothrombin Time 27.0(H) 12.0 - 14.3 sec LAB COAGULATION METHOD 11/26/2024 8:53 AM EDT [facility] INR 2.5(H) 0.9 - 1.1 LAB COAGULATION METHOD 11/26/2024 8:53 AM EDT [facility] Blood Venous blood specimen / Unknown Venipuncture / Unknown 11/26/2024 8:27 AM EDT 11/26/2024 8:34 AM EDT Narrative [facility] - 11/26/2024 8:53 AM EDT OPTIMAL INR RANGES FOR PATIENT ON ORAL ANTICOAGULANT THERAPY Prevention of venous thromboembolism INR 2.0 to 3.0 In patients with heart disease: Atrial fibrillation INR 2.0 to 3.0 Valvular heart disease INR 2.0 to 3.0 Tissue heart valves INR 2.0 to 3.0 Mechanical prosthetic valves INR 2.5 to 3.5 Prevention of recurrent [place] INR 2.5 to 3.5 us Marisabel Subramanian MD LAB BLOOD ORDERABLES Final Re sult Performing Organization Address [facility]/ZIP Co de Phone Number [facility] [address] [place] [address] * (ABNORMAL) Basic metabolic panel (11/26/2024 8:27 AM EDT) Glucose, Plasma 196(H) 74 - 99 mg/dL 11/26/2024 9:03 AM EDT [facility] BUN, Plasma 22 8 - 23 mg/dL 11/26/2024 9:03 AM EDT [facility] Creatinine, Plasma 0.90 0.60 - 1.10 mg/dL 11/26/2024 9:03 AM EDT [facility] BUN/Creatinine Ratio 24 11/26/2024 9:03 AM EDT [facility] Sodium, Plasma 135(L) 136 - 145 mmol/L 11/26/2024 9:03 AM EDT [facility] Potassium, Plasma 3.6 3.6 - 4.9 mmol/L 11/26/2024 9:03 AM EDT [facility] Chloride, Plasma 93(L) 97 - 107 mmol/L 11/26/2024 9:03 AM EDT [facility] CO2, Plasma 34(H) 22 - 29 mmol/L 11/26/2024 9:03 AM EDT [facility] Anion Gap 8 6 - 16 mmol/L 11/26/2024 9:03 AM EDT [facility] Total Calcium, Plasma 8.7(L) 8.9 - 10.2 mg/dL 11/26/2024 9:03 AM EDT [facility] eGFRcr 67.6 mL/min/1.7 3m*2 11/26/2024 9:03 AM EDT [facility] Comment:Reported eGFRcr in m L/min/1.73m2 is based the CKD-EPI 2020 equation that does not use a race coefficient. Blood Venous blood specimen / Unknown Venipuncture / Unknown 11/26/2024 8:27 AM EDT 11/26/2024 8:33 AM EDT us Cirilo Majano MD LAB BLOOD ORDERABLES Final R esult [facility] [address] [place] [address] * (ABNORMAL) POCT glucose meter (11/26/2024 8:04 AM EDT) POCT Glucose 195(H) 74 - 99 mg/dL 11/26/2024 8:31 AM EDT [facility] Comment:Accuracy of [...] to the main labortory for testing. Comment 11/26/2024 8:31 AM EDT [facility] Vp Genetic ID Hira Whitten 8:31 AM EDT [facility] Device ID [id number] 11/26/2024 8:31 AM EDT [facility] Specimen Type POC Capillary 11/26/2024 8:31 AM EDT [facility] Blood Capillary blood specimen / Unknown 11/26/2024 8:04 AM EDT 11/26/2024 8:31 AM EDT Cirilo Majano MD LAB POINT OF CARE TE ST DOCKED DEVICE UNSOLICITED RESULTS Final Result Performing Organization Address City/State/[facility] Co de Phone Number [facility] [address] [place] [address] * (ABNORMAL) POCT glucose meter (11/25/2024 7:48 PM EDT) [facility] POCT Glucose 171(H) 74 - 99 mg/dL 11/25/2024 7:49 PM EDT [facility] Comment:Accuracy of [...] to the main labortory for testing. Comment 11/25/2024 7:49 PM EDT [facility] Vp Genetic ID Niranjan Cardona 7:49 PM EDT [facility] Device ID [id number] 11/25/2024 7:49 PM EDT [facility] Specimen Type POC Capillary 11/25/2024 7:49 PM EDT [facility] Blood Capillary blood specimen / Unknown 11/25/2024 7:48 PM EDT 11/25/2024 7:49 PM EDT us Cirilo Majano MD LAB POINT OF CARE TE ST DOCKED DEVICE UNSOLICITED RESULTS Final Result Performing Organization Address City/[facility]/ZIP Co de Phone Number [facility] [address] [place] [address] * Blood Culture (Aerobic/Anaerobet Set) (11/25/2024 4:42 PM EDT) Culture No growth at day 5 OLIVIER 11/30/2024 6:01 PM EDT [facility] Blood Venous blood specimen / Unknown Venipuncture / Unknown 11/25/2024 4:42 PM EDT 11/25/2024 5:04 PM EDT us Cirilo Majano MD LAB MICROBIOLOGY - GENERAL O RDERABLES Final Result Performing Organization Address City/[facility] Co de Phone Number [facility] [address] [place] [address] * (ABNORMAL) POCT glucose meter (11/25/2024 4:34 PM EDT) POCT Glucose 201(H) 74 - 99 mg/dL 11/25/2024 4:35 PM EDT [facility] Comment:Accuracy of [...] to the main labortory for testing. Comment 11/25/2024 4:35 PM EDT [facility] Vp Genetic ID Yoselin Holcomb 11/25/2024 4:35 PM EDT [facility] Device ID [id number] 11/25/2024 4:35 PM EDT [facility] Specimen Type POC Capillary 11/25/2024 4:35 PM EDT [facility] Blood Capillary blood specimen / Unknown 11/25/2024 4:34 PM EDT 11/25/2024 4:35 PM EDT Cirilo Majano MD LAB POINT OF CARE TE ST DOCKED DEVICE UNSOLICITED RESULTS Final Result Performing Organization Address City/[facility] Co de Phone Number [facility] [address] [place] [address] * (ABNORMAL) POCT glucose meter (11/25/2024 12:09 PM EDT) POCT Glucose 331(H) 74 - 99 mg/dL 11/25/2024 12:11 PM EDT [facility] Comment:Accuracy of a glucos e result obtained from a capillary whole blood specimen relies upon adequate, non-compromised capillary blood flow. If the capillary glucose result is not consistent with the patient's clinical signs and symptoms, glucose testing should be repeated with either an arterial or venous sample on the glucometer or sent to the main labortory for testing. Comment 11/25/2024 12:11 PM EDT [facility] Vp Genetic ID Yoselin Holcomb 11/25/2024 12:11 PM EDT [facility] Device ID [id number] 11/25/2024 12:11 PM EDT [facility] Specimen Type POC Capillary 11/25/2024 12:11 PM EDT [facility] Blood Capillary blood specimen / Unknown 11/25/2024 12:09 PM EDT 11/25/2024 12:11 PM EDT us Cirilo Majano MD LAB POINT OF CARE TE ST DOCKED DEVICE UNSOLICITED RESULTS Final Result Performing Organization Address City/[facility] Co de Phone Number [facility] [address] [place] [address] * Methicillin Resistant Staphylococcus aureus (MRSA) by PCR (11/25/2024 11:47 AM EDT) Pathologist [facility] Methicillin Resistant Staphylococcus aureus (MRSA) by PCR Not Detected Not Detected 11/25/2024 1:48 PM EDT [facility] Swab Both anterior nares / Unknown Non-blood Collection / Unknown 11/25/2024 11:47 AM EDT 11/25/2024 12:09 PM EDT Narrative [facility] - 11/25/2024 1:48 PM EDT This test is FDA approved for use with nares swab specimens using the eSwabs. This test is used for clinical purposes. It should not be regarded as investigational or for research. This laboratory is certified under the Clinical Laboratory improvement Amendments of 1988 (CLIA-88 as qualified to perform high complexity clinical laboratory testing. us Cirilo Majano MD LAB MICROBIOLOGY - GENERAL O RDERABLES Final Result Performing Organization Address City/[facility]/ZIP Co de Phone Number [facility] [address] [place] [address] * (ABNORMAL) Prothrombin Time/INR (11/25/2024 8:46 AM EDT) Prothrombin Time 25.8(H) 12.0 - 14.3 sec LAB COAGULATION METHOD 11/25/2024 9:33 AM EDT [facility] INR 2.3(H) 0.9 - 1.1 LAB COAGULATION METHOD 11/25/2024 9:33 AM EDT [facility] Blood Venous blood specimen / Unknown Venipuncture / Unknown 11/25/2024 8:46 AM EDT 11/25/2024 9:11 AM EDT Narrative [facility] - 11/25/2024 9:33 AM EDT OPTIMAL INR RANGES FOR PATIENT ON ORAL ANTICOAGULANT THERAPY Prevention of venous thromboembolism INR 2.0 to 3.0 In patients with heart disease: Atrial fibrillation INR 2.0 to 3.0 Valvular heart disease INR 2.0 to 3.0 Tissue heart valves INR 2.0 to 3.0 Mechanical prosthetic valves INR 2.5 to 3.5 Prevention of recurrent [place] INR 2.5 to 3.5 us Marisabel Subramanian MD LAB BLOOD ORDERABLES Final Re sult Performing Organization Address City/[facility]/ZIP Co de Phone Number [facility] [address] [place] [address] * (ABNORMAL) Procalcitonin (11/25/2024 8:45 AM EDT) Procalcitonin, Plasma 1.53(H) <0.09 ng/mL 11/25/2024 9:48 AM EDT [facility] Blood Venous blood specimen / Unknown Venipuncture / Unknown 11/25/2024 8:45 AM EDT 11/25/2024 9:11 AM EDT Narrative [facility] - 11/25/2024 9:48 AM EDT Procalcitonin concentrations in healthy individuals are <0.09 ng/mL. Published data support the following interpretive risk assessment: An elevated procalcitonin result does not always indicate sepsis. Various non-infectious conditions are known to increase procalcitonin. Results should be considered in the context of clinical symptoms and other laboratory tests. Procalcitonin >2.0 ng/mL: Concentrations >2.0 ng/mL on the first day of ICU admission are associated with a higher risk of progression to severe sepsis and/or septic shock. The change in PCT over time may help predict 28 day mortality risk. Please consult [email or web address] for more information. Test performed at [facility]. us Cirilo Majano MD LAB BLOOD ORDERABLES Final R esult [facility] [address] [place] [address] * (ABNORMAL) Basic metabolic panel (11/25/2024 8:45 AM EDT) Glucose, Plasma 225(H) 74 - 99 mg/dL 11/25/2024 9:48 AM EDT [facility] BUN, Plasma 26(H) 8 - 23 mg/dL 11/25/2024 9:48 AM EDT [facility] Creatinine, Plasma 0.77 0.60 - 1.10 mg/dL 11/25/2024 9:48 AM EDT [facility] BUN/Creatinine Ratio 34 11/25/2024 9:48 AM EDT [facility] Sodium, Plasma 136 136 - 145 mmol/L 11/25/2024 9:48 AM EDT [facility] Potassium, Plasma 3.5(L) 3.6 - 4.9 mmol/L 11/25/2024 9:48 AM EDT [facility] Comment:Hemolyzed, result ma y be falsely increased. Chloride, Plasma 97 97 - 107 mmol/L 11/25/2024 9:48 AM EDT [facility] CO2, Plasma 28 22 - 29 mmol/L 11/25/2024 9:48 AM EDT [facility] Anion Gap 11 6 - 16 mmol/L 11/25/2024 9:48 AM EDT [facility] Total Calcium, Plasma 7.5(L) 8.9 - 10.2 mg/dL 11/25/2024 9:48 AM EDT [facility] eGFRcr 81.6 mL/min/1.7 3m*2 11/25/2024 9:48 AM EDT [facility] Comment:Reported eGFRcr in m L/min/1.73m2 is based the CKD-EPI 2020 equation that does not use a race coefficient. Blood Venous blood specimen / Unknown Venipuncture / Unknown 11/25/2024 8:45 AM EDT 11/25/2024 9:11 AM EDT us Cirilo Majano MD LAB BLOOD ORDERABLES Final R esult [facility] [address] [place] [address] * (ABNORMAL) CBC W/O Differential (11/25/2024 8:45 AM EDT) WBC Count 11.82(H) 3.70 - 10.30 10*3/uL LAB HEMATOLOGY METHOD 11/25/2024 9:20 AM EDT [facility] RBC Count 3.76(L) 3.90 - 5.20 10*6/uL LAB HEMATOLOGY METHOD 11/25/2024 9:20 AM EDT [facility] HGB 11.5 11.2 - 15.7 g/dL LAB HEMATOLOGY METHOD 11/25/2024 9:20 AM EDT [facility] HCT 36.3 34.0 - 45.0 % LAB HEMATOLOGY METHOD 11/25/2024 9:20 AM EDT [facility] Platelet Count 332 155 - 369 10*3/uL LAB HEMATOLOGY METHOD 11/25/2024 9:20 AM EDT [facility] MCV 97 79 - 98 fL LAB HEMATOLOGY METHOD 11/25/2024 9:20 AM EDT [facility] MCH 30.6 26.0 - 32.0 pg LAB HEMATOLOGY METHOD 11/25/2024 9:20 AM EDT [facility] MCHC 31.7 30.7 - 35.5 g/dL LAB HEMATOLOGY METHOD 11/25/2024 9:20 AM EDT [facility] RDW 15.2(H) 11.5 - 14.5 % LAB HEMATOLOGY METHOD 11/25/2024 9:20 AM EDT [facility] MPV 10.0 8.8 - 12.5 fL LAB HEMATOLOGY METHOD 11/25/2024 9:20 AM EDT [facility] nRBC 0.0 <=0.0 per 100 WBCs LAB HEMATOLOGY METHOD 11/25/2024 9:20 AM EDT [facility] Blood Venous blood specimen / Unknown Venipuncture / Unknown 11/25/2024 8:45 AM EDT 11/25/2024 9:11 AM EDT us Cirilo Majano MD LAB BLOOD ORDERABLES Final R esult [facility] [address] [place] [address] * (ABNORMAL) POCT glucose meter (11/25/2024 8:23 AM EDT) POCT Glucose 255(H) 74 - 99 mg/dL 11/25/2024 8:25 AM EDT [facility] Comment:Accuracy of a glucos e result obtained from a capillary whole blood specimen relies upon adequate, non-compromised capillary blood flow. If the capillary glucose result is not consistent with the patient's clinical signs and symptoms, glucose testing should be repeated with either an arterial or venous sample on the glucometer or sent to the main labortory for testing. Comment 11/25/2024 8:25 AM EDT [facility] Vp Genetic ID Yoselin Holcomb 11/25/2024 8:25 AM EDT [facility] Device ID [id number] 11/25/2024 8:25 AM EDT [facility] Specimen Type POC Capillary 11/25/2024 8:25 AM EDT [facility] Blood Capillary blood specimen / Unknown 11/25/2024 8:23 AM EDT 11/25/2024 8:25 AM EDT us Cirilo Majano MD LAB POINT OF CARE TE ST DOCKED DEVICE UNSOLICITED RESULTS Final Result Performing Organization Address City/[facility]/ZIP Co de Phone Number [facility] [address] [place] [address] * (ABNORMAL) POCT glucose meter (11/25/2024 5:24 AM EDT) POCT Glucose 193(H) 74 - 99 mg/dL 11/25/2024 5:26 AM EDT [facility] Comment:Accuracy [...] to the main labortory for testing. Comment 11/25/2024 5:26 AM EDT [facility] Vp Genetic ID Niranjan Cardona 5:26 AM EDT [facility] Device ID [id number] 11/25/2024 5:26 AM EDT [facility] Specimen Type POC Capillary 11/25/2024 5:26 AM EDT [facility] Blood Capillary blood specimen / Unknown 11/25/2024 5:24 AM EDT 11/25/2024 5:26 AM EDT us Cirilo Majano MD LAB POINT OF CARE TE ST DOCKED DEVICE UNSOLICITED RESULTS Final Result [facility] [address] [place] [address] * (ABNORMAL) POCT glucose meter (11/25/2024 4:58 AM EDT) POCT Glucose 184(H) 74 - 99 mg/dL 11/25/2024 5:00 AM EDT [facility] Comment:Accuracy of [...] to the main labortory for testing. Comment 11/25/2024 5:00 AM EDT [facility] Vp Genetic ID Lucio Sheridan 11/26/19 5:00 AM EDT [facility] Device ID [id number] 11/25/2024 5:00 AM EDT [facility] Specimen Type POC Capillary 11/25/2024 5:00 AM EDT [facility] Blood Capillary blood specimen / Unknown 11/25/2024 4:58 AM EDT 11/25/2024 5:00 AM EDT Cirilo Majano MD LAB POINT OF CARE TE ST DOCKED DEVICE UNSOLICITED RESULTS Final Result Performing Organization Address City/State/[facility] Co de Phone Number [facility] [address] [place] [address] * CT Chest w IV Contrast (11/25/2024 3:44 AM EDT) Anatomical Region Laterality Modality Chest Computed Tomogra phy Impressions 11/25/2024 8:38 AM EDT Moderate right and trace left pleural effusion with adjacent consolidation/atelectasis as detailed above. CRITICAL RESULT: No. COMMUNICATION: Per this written report. Drafted by Shawna Huerta MD on 11/25/2024 8:23 AM Final report signed by Shawna Huerta MD on 11/25/2024 8:38 AM Narrative 11/25/2024 8:38 AM EDT CLINICAL INDICATION: Pleural effusion, malignancy suspected TECHNIQUE: Multiple CT helical images were obtained from thoracic inlet through upper abdomen with administration of IV contrast. 100 mL of Omnipaque-300 were administered intravenously. The imaging protocol used in this examination was optimized to achieve diagnostic quality with the lowest possible radiation dose in accordance with the principles of ALARA (As Low As Reasonably Achievable). COMPARISON: Chest radiograph from 11/21/2024. FINDINGS: Mediastinum and Pleura: Multiple mildly enlarged mesenteric lymph nodes, likely reactive 1.2 cm right paratracheal lymph node likely reactive (series 2, image 56). Moderate right and trace left pleural effusions. No pericardial effusion. Cardiomegaly. Severe coronary artery calcifications. Prior bypass. Left chest wall ICD with leads terminate in the right atrium and right ventricle. Four-chamber enlargement. Lungs: Consolidation collapse adjacent to the right pleural effusion. Airspace opacity/consolidation in the left lower lobe. Upper Abdomen: No suspicious lesions in the partially visualized upper abdomen. There is contrast in the hepatic veins and dilated IVC likely due to passive hepatic congestion from right-sided heart enlargement. Musculoskeletal: Prior sternotomy. Osteopenia. Multilevel degenerative changes of the spine. There is wedge compression deformity of T12 vertebral body with loss of approximately 50% of the central and anterior body heights mild retropulsion and mild spinal canal stenosis. Procedure Note Shawna Huerta MD - 11/25/2024 CLINICAL INDICATION: Pleural effusion, malignancy suspected TECHNIQUE: Multiple CT helical images were obtained from thoracic inlet through upperabdomen with administration of IV contrast. 100 mL of Omnipaque-300 wereadministered intravenously. The imaging protocol used in this examination was optimized to achievediagnostic quality with the lowest possible radiation dose in accordancewith the principles of ALARA (As Low As Reasonably Achievable). COMPARISON: Chest radiograph from 11/21/2024. FINDINGS: Mediastinum and Pleura: Multiple mildly enlarged mesenteric lymph nodes,likely reactive 1.2 cm right paratracheal lymph node likely reactive(series 2, image 56). Moderate right and trace left pleural effusions. Nopericardial effusion. Cardiomegaly. Severe coronary artery calcifications.Prior bypass. Left chest wall ICD with leads terminate in the right atriumand right ventricle. Four-chamber enlargement. Lungs: Consolidation collapse adjacent to the right pleural effusion.Airspace opacity/consolidation in the left lower lobe. Upper Abdomen: No suspicious lesions in the partially visualized upperabdomen. There is contrast in the hepatic veins and dilated IVC likely dueto passive hepatic congestion from right-sided heart enlargement. Musculoskeletal: Prior sternotomy. Osteopenia. Multilevel degenerativechanges of the spine. There is wedge compression deformity of [id number] body with loss of approximately 50% of the central and anteriorbody heights mild retropulsion and mild spinal canal stenosis. IMPRESSION: Moderate right and trace left pleural effusion with adjacentconsolidation/atelectasis as detailed above. CRITICAL RESULT: No. COMMUNICATION: Per this written report. Drafted by Shawna Huerta MD on 11/25/2024 8:23 AM Final report signed by Shawna Huerta MD on 11/25/2024 8:38 AM us Cirilo Majano MD IMG CT PROCEDURES Final Resu lt * (ABNORMAL) POCT glucose meter (11/24/2024 11:07 PM EDT) Pathologist [facility] POCT Glucose 431(H) 74 - 99 mg/dL 11/24/2024 11:09 PM EDT [facility] Comment:Accuracy of [...] to the main labortory for testing. Comment 11/24/2024 11:09 PM EDT [facility] Vp Genetic ID Niranjan Cardona 11:09 PM EDT [facility] Device ID [id number] 11/24/2024 11:09 PM EDT [facility] Specimen Type POC Capillary 11/24/2024 11:09 PM EDT [facility] Blood Capillary blood specimen / Unknown 11/24/2024 11:07 PM EDT 11/24/2024 11:09 PM EDT Cirilo Majano MD LAB POINT OF CARE TE ST DOCKED DEVICE UNSOLICITED RESULTS Final Result [facility] [address] [place] [address] * (ABNORMAL) POCT glucose meter (11/24/2024 9:55 PM EDT) Pathologist [facility] POCT Glucose 488(H) 74 - 99 mg/dL 11/24/2024 9:56 PM EDT [facility] Comment:Accuracy of [...] to the main labortory for testing. Comment 11/24/2024 9:56 PM EDT [facility] Vp Genetic ID Lucio Sheridan 11/25/19 9:56 PM EDT [facility] Device ID [id number] 11/24/2024 9:56 PM EDT [facility] Specimen Type POC Capillary 11/24/2024 9:56 PM EDT [facility] Blood Capillary blood specimen / Unknown 11/24/2024 9:55 PM EDT 11/24/2024 9:56 PM EDT us Cirilo Majano MD LAB POINT OF CARE TE ST DOCKED DEVICE UNSOLICITED RESULTS Final Result Performing Organization Address City/State/[facility] Co de Phone Number [facility] [address] [place] [address] * (ABNORMAL) POCT glucose meter (11/24/2024 5:47 PM EDT) [facility] POCT Glucose 513(HH) 74 - 99 mg/dL 11/24/2024 5:50 PM EDT [facility] Comment:Accuracy of [...] to the main labortory for testing. Comment 11/24/2024 5:50 PM EDT [facility] Vp Genetic ID Shabana Tee 11/25/19 5:50 PM EDT [facility] Device ID [id number] 11/24/2024 5:50 PM EDT [facility] Specimen Type POC Capillary 11/24/2024 5:50 PM EDT [facility] Blood Capillary blood specimen / Unknown 11/24/2024 5:47 PM EDT 11/24/2024 5:50 PM EDT us Cirilo Majano MD LAB POINT OF CARE TE ST DOCKED DEVICE UNSOLICITED RESULTS Final Result Performing Organization Address City/State/[facility] de Phone Number [facility] [address] [place] [address] * (ABNORMAL) POCT glucose meter (11/24/2024 5:45 PM EDT) [facility] POCT Glucose 517(HH) 74 - 99 mg/dL 11/24/2024 5:47 PM EDT [facility] Comment:Accuracy of [...] to the main labortory for testing. Comment 11/24/2024 5:47 PM EDT [facility] Vp Genetic ID Shabana Tee 11/25/19 5:47 PM EDT [facility] Device ID [id number] 11/24/2024 5:47 PM EDT [facility] Specimen Type POC Capillary 11/24/2024 5:47 PM EDT [facility] Blood Capillary blood specimen / Unknown 11/24/2024 5:45 PM EDT 11/24/2024 5:47 PM EDT us Cirilo Majano MD LAB POINT OF CARE TE ST DOCKED DEVICE UNSOLICITED RESULTS Final Result Performing Organization Address [facility] de Phone Number [facility] [address] [place] [address] * Urine Culture (11/24/2024 4:18 PM EDT) [facility] Culture 10,000 - 100,000 CFU/mL Mixed urogenital, fecal, or skin karl present. 11/25/2024 12:32 PM EDT [facility] Urine Urine specimen obtained by clean catch procedure / Unknown Non-blood Collection / Unknown 11/24/2024 4:18 PM EDT 11/24/2024 4:46 PM EDT us Cirilo Majano MD LAB MICROBIOLOGY - GENERAL O RDERABLES Final Result Performing Organization Address City/[facility]/ZIP Co de Phone Number [facility] [address] [place] [address] * (ABNORMAL) Respiratory Culture and Gram Stain (11/24/2024 4:17 PM EDT) Culture Heavy Growth 11/26/2024 1:24 PM EDT [facility] Culture Enterobacter cloacae complex(A) OLIVIER 11/26/2024 1:24 PM EDT [facility] Comment: This isolate has been identified using the FDA Approved [employer] System The organism value for this result has been updated. These results have been appended to the previously preliminary verified report. Gram Stain Result Fewer than 10 Epithelial cells/LPF(A) 11/26/2024 1:24 PM EDT [facility] Gram Stain Result Greater than 25 WBC/LPF(A) 11/26/2024 1:24 PM EDT [facility] Gram Stain Result Numerous Gram negative rods(A) 11/26/2024 1:24 PM EDT [facility] Gram Stain Result Rare Gram positive cocci in pairs and chains(A) 11/26/2024 1:24 PM EDT [facility] Sputum Coughed sputum specimen / Unknown Non-blood Collection / Unknown 11/24/2024 4:17 PM EDT 11/24/2024 4:47 PM EDT Narrative Organism Antibiotic Method Susceptibility Enterobacter cloacae complex Amoxicillin/Clavulanate OLIVIER >16/8 ug/ml: Resistant Enterobacter cloacae complex Ampicillin OLIVIER >16 ug/ml: Resistant Enterobacter cloacae complex Ampicillin/Sulbactam OLIVIER 16/8 ug/ml: Resistant Enterobacter cloacae complex Aztreonam OLIVIER <=2 ug/ml: Susceptible Enterobacter cloacae complex Cefazolin OLIVIER >16 ug/ml: Resistant Enterobacter cloacae complex Cefepime OLIVIER <=0.5 ug/ml: Susceptible Enterobacter cloacae complex Ciprofloxacin OLIVIER <=0.25 ug/ml: Susceptible Enterobacter cloacae complex Ertapenem OLIVIER <=0.25 ug/ml: Susceptible Enterobacter cloacae complex Gentamicin OLIVIER <=2 ug/ml: Susceptible Enterobacter cloacae complex Levofloxacin OLIVIER <=0.25 ug/ml: Susceptible Enterobacter cloacae complex Meropenem OLIVIER <=0.5 ug/ml: Susceptible Enterobacter cloacae complex Piperacillin/Tazobactam OLIVIER 4/4 ug/ml: Susceptible Enterobacter cloacae complex Tetracycline OLIVIER <=2 ug/ml: Susceptible Enterobacter cloacae complex Tobramycin OLIVIER <=2 ug/ml: Susceptible Enterobacter cloacae complex Trimethoprim/Sulfamethoxa zole OLIVIER <=0.5/9.5 ug/ml: Susceptible Comment: This organism may produce inducible or derepressed AmpC -lactamase, which can lead to treatment failure with third-generation cephalosporins (e.g., ceftriaxone, ceftazidime) despite apparent in vitro susceptibility. In serious infections (e.g., bacteremia), agents such as cefepime or carbapenems are preferred. Consider discussing with infectious disease or antimicrobial stewardship team. us Cirilo Majano MD LAB MICROBIOLOGY - GENERAL O RDERABLES Final Result [facility] [address] [place] [address] * XR Chest 1 View (11/24/2024 12:03 PM EDT) Anatomical Region Laterality Modality Chest Digital Radiogra phy Impressions 11/24/2024 1:54 PM EDT Interval placement of esophagogastric tube with tip terminating in the stomach. Otherwise unchanged again. CRITICAL RESULT: No. COMMUNICATION: Per this written report. By electronically signing this report, I, the attending physician, attest that I have personally reviewed the images/data for the above examination(s) and agree with the final edited report. Drafted by Yemi Frederick MD on 11/24/2024 1:25 PM Final report signed by Dominic Mcconnell MD on 11/24/2024 1:54 PM Narrative 11/24/2024 1:54 PM EDT CLINICAL INDICATION: Fever TECHNIQUE: XR CHEST 1 VIEW COMPARISON: Chest x-ray 11/21/2024. FINDINGS: Interval placement of esophagogastric tube with tip terminating in the stomach. Similar appearance of moderate right and small left pleural effusions with lower lobe opacities. Unchanged appearance of sternotomy wires and AICD. No pneumothorax. Procedure Note Dominic Mcconnell MD - 11/24/2024 CLINICAL INDICATION: Fever TECHNIQUE: XR CHEST 1 VIEW COMPARISON: Chest x-ray 11/21/2024. FINDINGS: Interval placement of esophagogastric tube with tip terminating in thestomach. Similar appearance of moderate right and small left pleuraleffusions with lower lobe opacities. Unchanged appearance of sternotomywires and AICD. No pneumothorax. IMPRESSION: Interval placement of esophagogastric tube with tip terminating in thestomach. Otherwise unchanged again. CRITICAL RESULT: No. COMMUNICATION: Per this written report. By electronically signing this report, I, the attending physician, attestthat I have personally reviewed the images/data for the aboveexamination(s) and agree with the final edited report. Drafted by Yemi Frederick MD on 11/24/2024 1:25 PM Final report signed by Dominic Mcconnell MD on 11/24/2024 1:54 PM us Cirilo Majano MD IMG XR PROCEDURES Final Resu lt * POCT glucose meter (11/24/2024 11:52 AM EDT) POCT Glucose 94 74 - 99 mg/dL 11/24/2024 11:53 AM EDT [facility] Comment:Accuracy of a glucos e result obtained from a capillary whole blood specimen relies upon adequate, non-compromised capillary blood flow. If the capillary glucose result is not consistent with the patient's clinical signs and symptoms, glucose testing should be repeated with either an arterial or venous sample on the glucometer or sent to the main labortory for testing. Comment 11/24/2024 11:53 AM EDT [facility] Vp Genetic ID Marquita Hodges V 11/24/2024 11:53 AM EDT [facility] Device ID [id number] 11/24/2024 11:53 AM EDT [facility] Specimen Type POC Capillary 11/24/2024 11:53 AM EDT [facility] Blood Capillary blood specimen / Unknown 11/24/2024 11:52 AM EDT 11/24/2024 11:53 AM EDT us Cirilo Majano MD LAB POINT OF CARE TE ST DOCKED DEVICE UNSOLICITED RESULTS Final Result Performing Organization Address City/[facility]/ZIP Co de Phone Number [facility] [address] [place] [address] * POCT glucose meter (11/24/2024 11:19 AM EDT) [facility] POCT Glucose 88 74 - 99 mg/dL 11/24/2024 11:23 AM EDT [facility] Comment:Accuracy of [...] to the main labortory for testing. Comment 11/24/2024 11:23 AM EDT [facility] Vp Genetic ID Shabana Tee 11/25/19 11:23 AM EDT [facility] Device ID [id number] 11/24/2024 11:23 AM EDT [facility] Specimen Type POC Capillary 11/24/2024 11:23 AM EDT [facility] Blood Capillary blood specimen / Unknown 11/24/2024 11:19 AM EDT 11/24/2024 11:23 AM EDT Cirilo Majano MD LAB POINT OF CARE TE ST DOCKED DEVICE UNSOLICITED RESULTS Final Result Performing Organization Address City/[facility] Co de Phone Number [facility] [address] [place] [address] * (ABNORMAL) POCT glucose meter (11/24/2024 11:18 AM EDT) [facility] POCT Glucose 68(L) 74 - 99 mg/dL 11/24/2024 11:20 AM EDT [facility] Comment:Accuracy [...] to the main labortory for testing. Comment 11/24/2024 11:20 AM EDT [facility] Vp Genetic ID Shabana Tee 11/25/19 11:20 AM EDT [facility] Device ID [id number] 11/24/2024 11:20 AM EDT [facility] Specimen Type POC Capillary 11/24/2024 11:20 AM EDT [facility] Blood Capillary blood specimen / Unknown 11/24/2024 11:18 AM EDT 11/24/2024 11:20 AM EDT Cirilo Majano MD LAB POINT OF CARE TE ST DOCKED DEVICE UNSOLICITED RESULTS Final Result Performing Organization Address City/[facility] Co de Phone Number [facility] [address] [place] [address] * (ABNORMAL) POCT glucose meter (11/24/2024 5:23 AM EDT) [facility] POCT Glucose 218(H) 74 - 99 mg/dL 11/24/2024 5:25 AM EDT [facility] Comment:Accuracy of [...] to the main labortory for testing. Comment 11/24/2024 5:25 AM EDT [facility] Vp Genetic ID Niranjan Cardona 5:25 AM EDT [facility] Device ID [id number] 11/24/2024 5:25 AM EDT [facility] Specimen Type POC Capillary 11/24/2024 5:25 AM EDT [facility] Blood Capillary blood specimen / Unknown 11/24/2024 5:23 AM EDT 11/24/2024 5:25 AM EDT us Cirilo Majano MD LAB POINT OF CARE TE ST DOCKED DEVICE UNSOLICITED RESULTS Final Result Performing Organization Address City/[facility]/ZIP Co de Phone Number [facility] [address] [place] [address] * (ABNORMAL) Procalcitonin (11/24/2024 5:03 AM EDT) Procalcitonin, Plasma 0.42(H) <0.09 ng/mL 11/24/2024 11:45 AM EDT [facility] Blood Venous blood specimen / Unknown Venipuncture / Unknown 11/24/2024 5:03 AM EDT 11/24/2024 5:12 AM EDT Narrative [facility] - 11/24/2024 11:45 AM EDT Procalcitonin concentrations in healthy individuals are <0.09 ng/mL. Published data support the following interpretive risk assessment: An elevated procalcitonin result does not always indicate sepsis. Various non-infectious conditions are known to increase procalcitonin. Results should be considered in the context of clinical symptoms and other laboratory tests. Procalcitonin >2.0 ng/mL: Concentrations >2.0 ng/mL on the first day of ICU admission are associated with a higher risk of progression to severe sepsis and/or septic shock. The change in PCT over time may help predict 28 day mortality risk. Please consult [email or web address] for more information. Test performed at [facility]. us Cirilo Majano MD LAB BLOOD ORDERABLES Final R esult [facility] [address] [place] [address] * (ABNORMAL) Prothrombin Time/INR (11/24/2024 5:03 AM EDT) Prothrombin Time 23.7(H) 12.0 - 14.3 sec LAB COAGULATION METHOD 11/24/2024 5:44 AM EDT [facility] INR 2.1(H) 0.9 - 1.1 LAB COAGULATION METHOD 11/24/2024 5:44 AM EDT [facility] Blood Venous blood specimen / Unknown Venipuncture / Unknown 11/24/2024 5:03 AM EDT 11/24/2024 5:12 AM EDT Narrative [facility] - 11/24/2024 5:44 AM EDT OPTIMAL INR RANGES FOR PATIENT ON ORAL ANTICOAGULANT THERAPY Prevention of venous thromboembolism INR 2.0 to 3.0 In patients with heart disease: Atrial fibrillation INR 2.0 to 3.0 Valvular heart disease INR 2.0 to 3.0 Tissue heart valves INR 2.0 to 3.0 Mechanical prosthetic valves INR 2.5 to 3.5 Prevention of recurrent TN INR 2.5 to 3.5 us Marisabel Subramanian MD LAB BLOOD ORDERABLES Final Re sult [facility] [address] [place] [address] * (ABNORMAL) Comprehensive metabolic panel (11/24/2024 5:03 AM EDT) Glucose, Plasma 232(H) 74 - 99 mg/dL 11/24/2024 5:43 AM EDT [facility] BUN, Plasma 31(H) 8 - 23 mg/dL 11/24/2024 5:43 AM EDT [facility] Creatinine, Plasma 0.87 0.60 - 1.10 mg/dL 11/24/2024 5:43 AM EDT [facility] BUN/Creatinine Ratio 36 11/24/2024 5:43 AM EDT [facility] Sodium, Plasma 130(L) 136 - 145 mmol/L 11/24/2024 5:43 AM EDT [facility] Potassium, Plasma 3.6 3.6 - 4.9 mmol/L 11/24/2024 5:43 AM EDT [facility] Chloride, Plasma 90(L) 97 - 107 mmol/L 11/24/2024 5:43 AM EDT [facility] CO2, Plasma 29 22 - 29 mmol/L 11/24/2024 5:43 AM EDT [facility] Anion Gap 11 6 - 16 mmol/L 11/24/2024 5:43 AM EDT [facility] Total Calcium, Plasma 8.8(L) 8.9 - 10.2 mg/dL 11/24/2024 5:43 AM EDT [facility] Total Protein 7.0 6.3 - 7.9 g/dL 11/24/2024 5:43 AM EDT [facility] Albumin, Plasma 3.0(L) 3.5 - 5.2 g/dL 11/24/2024 5:43 AM EDT [facility] AST, Plasma 34 10 - 35 U/L 11/24/2024 5:43 AM EDT [facility] ALT, Plasma 18 10 - 35 U/L 11/24/2024 5:43 AM EDT [facility] Alkaline Phosphatase, Plasma 126 46 - 142 U/L 11/24/2024 5:43 AM EDT [facility] Total Bilirubin, Plasma 0.5 0.2 - 1.1 mg/dL 11/24/2024 5:43 AM EDT [facility] eGFRcr 70.5 mL/min/1.7 3m*2 11/24/2024 5:43 AM EDT [facility] Comment:Reported eGFRcr in m L/min/1.73m2 is based the CKD-EPI 2020 equation that does not use a race coefficient. Blood Venous blood specimen / Unknown Venipuncture / Unknown 11/24/2024 5:03 AM EDT 11/24/2024 5:12 AM EDT us Marisabel Subramanian MD LAB BLOOD ORDERABLES Final Re sult [facility] [address] [place] [address] * (ABNORMAL) CBC and differential (11/24/2024 5:03 AM EDT) WBC Count 14.95(H) 3.70 - 10.30 10*3/uL LAB HEMATOLOGY METHOD 11/24/2024 5:27 AM EDT [facility] RBC Count 3.81(L) 3.90 - 5.20 10*6/uL LAB HEMATOLOGY METHOD 11/24/2024 5:27 AM EDT [facility] HGB 11.8 11.2 - 15.7 g/dL LAB HEMATOLOGY METHOD 11/24/2024 5:27 AM EDT [facility] HCT 36.7 34.0 - 45.0 % LAB HEMATOLOGY METHOD 11/24/2024 5:27 AM EDT [facility] Platelet Count 378(H) 155 - 369 10*3/uL LAB HEMATOLOGY METHOD 11/24/2024 5:27 AM EDT [facility] MCV 96 79 - 98 fL LAB HEMATOLOGY METHOD 11/24/2024 5:27 AM EDT [facility] MCH 31.0 26.0 - 32.0 pg LAB HEMATOLOGY METHOD 11/24/2024 5:27 AM EDT [facility] MCHC 32.2 30.7 - 35.5 g/dL LAB HEMATOLOGY METHOD 11/24/2024 5:27 AM EDT [facility] RDW 15.3(H) 11.5 - 14.5 % LAB HEMATOLOGY METHOD 11/24/2024 5:27 AM EDT [facility] MPV 9.7 8.8 - 12.5 fL LAB HEMATOLOGY METHOD 11/24/2024 5:27 AM EDT [facility] nRBC 0.0 <=0.0 per 100 WBCs LAB HEMATOLOGY METHOD 11/24/2024 5:27 AM EDT [facility] Differential Type Automated LAB HEMATOLOGY METHOD 11/24/2024 5:27 AM EDT [facility] Neutrophils % 90 % LAB HEMATOLOGY METHOD 11/24/2024 5:27 AM EDT [facility] Lymphocytes % 4 % LAB HEMATOLOGY METHOD 11/24/2024 5:27 AM EDT [facility] Monocytes % 5 % LAB HEMATOLOGY METHOD 11/24/2024 5:27 AM EDT [facility] Eosinophils % 0 % LAB HEMATOLOGY METHOD 11/24/2024 5:27 AM EDT [facility] Basophils % 0 % LAB HEMATOLOGY METHOD 11/24/2024 5:27 AM EDT [facility] Immature Granulocytes % 1 % LAB HEMATOLOGY METHOD 11/24/2024 5:27 AM EDT [facility] Neutrophils Absolute 13.45(H) 1.60 - 6.10 10*3/uL LAB HEMATOLOGY METHOD 11/24/2024 5:27 AM EDT [facility] Lymphocytes Absolute 0.59(L) 1.20 - 3.90 10*3/uL LAB HEMATOLOGY METHOD 11/24/2024 5:27 AM EDT [facility] Monocytes Absolute 0.80 0.30 - 0.90 10*3/uL LAB HEMATOLOGY METHOD 11/24/2024 5:27 AM EDT [facility] Eosinophils Absolute 0.01 0.00 - 0.50 10*3/uL LAB HEMATOLOGY METHOD 11/24/2024 5:27 AM EDT [facility] Basophils Absolute 0.02 0.00 - 0.10 10*3/uL LAB HEMATOLOGY METHOD 11/24/2024 5:27 AM EDT [facility] Immature Granulocytes Absolute 0.08(H) 0.00 - 0.06 10*3/uL LAB HEMATOLOGY METHOD 11/24/2024 5:27 AM EDT [facility] Blood Venous blood specimen / Unknown Venipuncture / Unknown 11/24/2024 5:03 AM EDT 11/24/2024 5:12 AM EDT Narrative [facility] - 11/24/2024 5:27 AM EDT Therapeutic decision making should be based on absolute values, rather than percentages. us Marisabel Subramanian MD LAB BLOOD ORDERABLES Final Re sult [facility] [address] [place] [address] * (ABNORMAL) POCT glucose meter (11/23/2024 11:23 PM EDT) POCT Glucose 335(H) 74 - 99 mg/dL 11/23/2024 11:24 PM EDT [facility] Comment:Accuracy of a glucos e result obtained from a capillary whole blood specimen relies upon adequate, non-compromised capillary blood flow. If the capillary glucose result is not consistent with the patient's clinical signs and symptoms, glucose testing should be repeated with either an arterial or venous sample on the glucometer or sent to the main labortory for testing. Comment 11/23/2024 11:24 PM EDT [facility] Vp Genetic ID Niranjan Cardona 11:24 PM EDT [facility] Device ID [id number] 11/23/2024 11:24 PM EDT [facility] Specimen Type POC Capillary 11/23/2024 11:24 PM EDT [facility] Blood Capillary blood specimen / Unknown 11/23/2024 11:23 PM EDT 11/23/2024 11:24 PM EDT us Cirilo Majano MD LAB POINT OF CARE TE ST DOCKED DEVICE UNSOLICITED RESULTS Final Result Performing Organization Address [facility] de Phone Number [facility] [address] [place] [address] * (ABNORMAL) POCT glucose meter (11/23/2024 6:04 PM EDT) POCT Glucose 364(H) 74 - 99 mg/dL 11/23/2024 6:06 PM EDT [facility] Comment:Accuracy [...] to the main labortory for testing. Comment 11/23/2024 6:06 PM EDT [facility] Vp Genetic ID Shabana Tee 11/24/19 25 6:06 PM EDT [facility] Device ID [id number] 11/23/2024 6:06 PM EDT [facility] Specimen Type POC Capillary 11/23/2024 6:06 PM EDT [facility] Blood Capillary blood specimen / Unknown 11/23/2024 6:04 PM EDT 11/23/2024 6:06 PM EDT us Cirilo Majano MD LAB POINT OF CARE TE ST DOCKED DEVICE UNSOLICITED RESULTS Final Result Performing Organization Address [facility] de Phone Number [facility] [address] [place] [address] * FL Modified Barium Swallow (11/23/2024 1:30 PM EDT) Anatomical Region Laterality Modality Esophagus, stomach and duodenum Digital Radiography Impressions 11/23/2024 4:34 PM EDT Aspiration of thin, nectar, and honey barium consistencies. Please see separate note by Speech therapy team for dietary recommendations. CRITICAL RESULT: No. COMMUNICATION: Per this written report. By electronically signing this report, I, the attending physician, attest that I have personally reviewed the images/data for the above examination(s) and agree with the final edited report. Drafted by PRAKASH Sena RT (R) on 11/23/2024 4:18 PM Final report signed by Kvng Ribeiro MD on 11/23/2024 4:34 PM Narrative 11/23/2024 4:34 PM EDT CLINICAL INDICATION: Dysarthria, post stroke evaluation for dysphagia TECHNIQUE: Modified barium swallow was performed utilizing video fluoroscopy in conjunction with the Speech Pathology team. The patient ingested barium media of varying consistencies. Fluoroscopy Time: 3.3 minutes. COMPARISON: None. FINDINGS: Swallowing: Thin consistency (IDDSI 0): There is silent aspiration by the teaspoon with and without a chin tuck maneuver. [place] consistency (IDDSI 2): There is silent aspiration by the cup and straw. There is laryngeal penetration by the teaspoon. Honey consistency (IDDSI 3): There is silent aspiration with sequential sips by the cup. There is no laryngeal penetration by the teaspoon or the straw. Pudding consistency (IDDSI 4): There is no aspiration or laryngeal penetration. Regular cracker consistency (IDDSI 7): There is no aspiration or laryngeal penetration. Other: Enteric tube is present. Moderate cricopharyngeal bar versus extrinsic compression on the posterior wall of the hypopharynx from the anterior cervical osteophyte at the level C5-6, or both. Procedure Note Kvng Ribeiro MD - 11/23/2024 CLINICAL INDICATION: Dysarthria, post stroke evaluation for dysphagia TECHNIQUE: Modified barium swallow was performed utilizing video fluoroscopy inconjunction with the Speech Pathology team. The patient ingested bariummedia of varying consistencies. Fluoroscopy Time: 3.3 minutes. COMPARISON: None. FINDINGS: Swallowing: Thin consistency (IDDSI 0): There is silent aspiration by the teaspoonwith and without a chin tuck maneuver. [place] consistency (IDDSI 2): There is silent aspiration by the cup andstraw. There is laryngeal penetration by the teaspoon. Honey consistency (IDDSI 3): There is silent aspiration with sequentialsips by the cup. There is no laryngeal penetration by the teaspoon or thestraw. Pudding consistency (IDDSI 4): There is no aspiration or laryngealpenetration. Regular cracker consistency (IDDSI 7): There is no aspiration or laryngealpenetration. Other: Enteric tube is present. Moderate cricopharyngeal bar versusextrinsic compression on the posterior wall of the hypopharynx from theanterior cervical osteophyte at the level C5-6, or both. IMPRESSION: Aspiration of thin, nectar, and honey barium consistencies. Please see separate note by Speech therapy team for dietaryrecommendations. CRITICAL RESULT: No. COMMUNICATION: Per this written report. By electronically signing this report, I, the attending physician, shwetha I have personally reviewed the images/data for the aboveexamination(s) and agree with the final edited report. Drafted by PRAKASH Sena RT (R) on 11/23/2024 4:18 PM Final report signed by Kvng Ribeiro MD on 11/23/2024 4:34 PM Cirilo Majano MD IMG FLUOROSCOPY PROCEDURES F inal Result * (ABNORMAL) POCT glucose meter (11/23/2024 11:17 AM EDT) POCT Glucose 308(H) 74 - 99 mg/dL 11/23/2024 11:21 AM EDT [facility] Comment:Accuracy of [...] to the main labortory for testing. Comment 11/23/2024 11:21 AM EDT [facility] Vp Genetic ID Shabana Tee 11/24/19 11:21 AM EDT [facility] Device ID [id number] 11/23/2024 11:21 AM EDT [facility] Specimen Type POC Capillary 11/23/2024 11:21 AM EDT [facility] Blood Capillary blood specimen / Unknown 11/23/2024 11:17 AM EDT 11/23/2024 11:21 AM EDT Cirilo Majano MD LAB POINT OF CARE TE ST DOCKED DEVICE UNSOLICITED RESULTS Final Result Performing Organization Address City/[facility] Co de Phone Number [facility] [address] [place] [address] * (ABNORMAL) POCT glucose meter (11/23/2024 5:31 AM EDT) POCT Glucose 144(H) 74 - 99 mg/dL 11/23/2024 5:33 AM EDT [facility] Comment:Accuracy of a glucos e result obtained from a capillary whole blood specimen relies upon adequate, non-compromised capillary blood flow. If the capillary glucose result is not consistent with the patient's clinical signs and symptoms, glucose testing should be repeated with either an arterial or venous sample on the glucometer or sent to the main labortory for testing. Comment 11/23/2024 5:33 AM EDT [facility] Vp Genetic ID Nneka Curran 11/23/2024 5:33 AM EDT [facility] Device ID [id number] 11/23/2024 5:33 AM EDT [facility] Specimen Type POC Capillary 11/23/2024 5:33 AM EDT [facility] Blood Capillary blood specimen / Unknown 11/23/2024 5:31 AM EDT 11/23/2024 5:33 AM EDT us Cirilo Majano MD LAB POINT OF CARE TE ST DOCKED DEVICE UNSOLICITED RESULTS Final Result Performing Organization Address City/[facility] Co de Phone Number [facility] [address] [place] [address] * (ABNORMAL) Prothrombin Time/INR (11/23/2024 2:53 AM EDT) Prothrombin Time 21.4(H) 12.0 - 14.3 sec LAB COAGULATION METHOD 11/23/2024 3:21 AM EDT [facility] INR 1.8(H) 0.9 - 1.1 LAB COAGULATION METHOD 11/23/2024 3:21 AM EDT [facility] Blood Venous blood specimen / Unknown Venipuncture / Unknown 11/23/2024 2:53 AM EDT 11/23/2024 2:59 AM EDT Narrative [facility] - 11/23/2024 3:21 AM EDT OPTIMAL INR RANGES FOR PATIENT ON ORAL ANTICOAGULANT THERAPY Prevention of venous thromboembolism INR 2.0 to 3.0 In patients with heart disease: Atrial fibrillation INR 2.0 to 3.0 Valvular heart disease INR 2.0 to 3.0 Tissue heart valves INR 2.0 to 3.0 Mechanical prosthetic valves INR 2.5 to 3.5 Prevention of recurrent TN INR 2.5 to 3.5 us Marisabel Subramanian MD LAB BLOOD ORDERABLES Final Re sult [facility] [address] [place] [address] * (ABNORMAL) Comprehensive metabolic panel (11/23/2024 2:53 AM EDT) Glucose, Plasma 159(H) 74 - 99 mg/dL 11/23/2024 3:35 AM EDT [facility] BUN, Plasma 39(H) 8 - 23 mg/dL 11/23/2024 3:35 AM EDT [facility] Creatinine, Plasma 1.00 0.60 - 1.10 mg/dL 11/23/2024 3:35 AM EDT [facility] BUN/Creatinine Ratio 39 11/23/2024 3:35 AM EDT [facility] Sodium, Plasma 137 136 - 145 mmol/L 11/23/2024 3:35 AM EDT [facility] Potassium, Plasma 4.0 3.6 - 4.9 mmol/L 11/23/2024 3:35 AM EDT [facility] Comment:Hemolyzed, result ma y be falsely increased. Chloride, Plasma 95(L) 97 - 107 mmol/L 11/23/2024 3:35 AM EDT [facility] CO2, Plasma 30(H) 22 - 29 mmol/L 11/23/2024 3:35 AM EDT [facility] Anion Gap 12 6 - 16 mmol/L 11/23/2024 3:35 AM EDT [facility] Total Calcium, Plasma 8.8(L) 8.9 - 10.2 mg/dL 11/23/2024 3:35 AM EDT [facility] Total Protein 6.4 6.3 - 7.9 g/dL 11/23/2024 3:35 AM EDT [facility] Albumin, Plasma 2.7(L) 3.5 - 5.2 g/dL 11/23/2024 3:35 AM EDT [facility] AST, Plasma 42(H) 10 - 35 U/L 11/23/2024 3:35 AM EDT [facility] Comment:Hemolyzed, result ma y be falsely increased. ALT, Plasma 20 10 - 35 U/L 11/23/2024 3:35 AM EDT [facility] Alkaline Phosphatase, Plasma 117 46 - 142 U/L 11/23/2024 3:35 AM EDT [facility] Total Bilirubin, Plasma 0.4 0.2 - 1.1 mg/dL 11/23/2024 3:35 AM EDT [facility] eGFRcr 59.6 mL/min/1.7 3m*2 11/23/2024 3:35 AM EDT [facility] Comment:Reported eGFRcr in m L/min/1.73m2 is based the CKD-EPI 2020 equation that does not use a race coefficient. Blood Venous blood specimen / Unknown Venipuncture / Unknown 11/23/2024 2:53 AM EDT 11/23/2024 2:59 AM EDT us Marisabel Subramanian MD LAB BLOOD ORDERABLES Final Re sult [facility] [address] [place] [address] * (ABNORMAL) CBC and differential (11/23/2024 2:53 AM EDT) WBC Count 9.00 3.70 - 10.30 10*3/uL LAB HEMATOLOGY METHOD 11/23/2024 3:09 AM EDT [facility] RBC Count 3.72(L) 3.90 - 5.20 10*6/uL LAB HEMATOLOGY METHOD 11/23/2024 3:09 AM EDT [facility] HGB 11.5 11.2 - 15.7 g/dL LAB HEMATOLOGY METHOD 11/23/2024 3:09 AM EDT [facility] HCT 35.7 34.0 - 45.0 % LAB HEMATOLOGY METHOD 11/23/2024 3:09 AM EDT [facility] Platelet Count 321 155 - 369 10*3/uL LAB HEMATOLOGY METHOD 11/23/2024 3:09 AM EDT [facility] MCV 96 79 - 98 fL LAB HEMATOLOGY METHOD 11/23/2024 3:09 AM EDT [facility] MCH 30.9 26.0 - 32.0 pg LAB HEMATOLOGY METHOD 11/23/2024 3:09 AM EDT [facility] MCHC 32.2 30.7 - 35.5 g/dL LAB HEMATOLOGY METHOD 11/23/2024 3:09 AM EDT [facility] RDW 15.3(H) 11.5 - 14.5 % LAB HEMATOLOGY METHOD 11/23/2024 3:09 AM EDT [facility] MPV 9.6 8.8 - 12.5 fL LAB HEMATOLOGY METHOD 11/23/2024 3:09 AM EDT [facility] nRBC 0.0 <=0.0 per 100 WBCs LAB HEMATOLOGY METHOD 11/23/2024 3:09 AM EDT [facility] Differential Type Automated LAB HEMATOLOGY METHOD 11/23/2024 3:09 AM EDT [facility] Neutrophils % 77 % LAB HEMATOLOGY METHOD 11/23/2024 3:09 AM EDT [facility] Lymphocytes % 7 % LAB HEMATOLOGY METHOD 11/23/2024 3:09 AM EDT [facility] Monocytes % 14 % LAB HEMATOLOGY METHOD 11/23/2024 3:09 AM EDT [facility] Eosinophils % 1 % LAB HEMATOLOGY METHOD 11/23/2024 3:09 AM EDT [facility] Basophils % 0 % LAB HEMATOLOGY METHOD 11/23/2024 3:09 AM EDT [facility] Immature Granulocytes % 1 % LAB HEMATOLOGY METHOD 11/23/2024 3:09 AM EDT [facility] Neutrophils Absolute 6.95(H) 1.60 - 6.10 10*3/uL LAB HEMATOLOGY METHOD 11/23/2024 3:09 AM EDT [facility] Lymphocytes Absolute 0.60(L) 1.20 - 3.90 10*3/uL LAB HEMATOLOGY METHOD 11/23/2024 3:09 AM EDT [facility] Monocytes Absolute 1.27(H) 0.30 - 0.90 10*3/uL LAB HEMATOLOGY METHOD 11/23/2024 3:09 AM EDT [facility] Eosinophils Absolute 0.10 0.00 - 0.50 10*3/uL LAB HEMATOLOGY METHOD 11/23/2024 3:09 AM EDT [facility] Basophils Absolute 0.03 0.00 - 0.10 10*3/uL LAB HEMATOLOGY METHOD 11/23/2024 3:09 AM EDT [facility] Immature Granulocytes Absolute 0.05 0.00 - 0.06 10*3/uL LAB HEMATOLOGY METHOD 11/23/2024 3:09 AM EDT [facility] Blood Venous blood specimen / Unknown Venipuncture / Unknown 11/23/2024 2:53 AM EDT 11/23/2024 2:59 AM EDT Narrative [facility] - 11/23/2024 3:09 AM EDT Therapeutic decision making should be based on absolute values, rather than percentages. us Marisabel Subramanian MD LAB BLOOD ORDERABLES Final Re sult [facility] [address] [place] [address] * (ABNORMAL) POCT glucose meter (11/22/2024 11:42 PM EDT) POCT Glucose 162(H) 74 - 99 mg/dL 11/22/2024 11:43 PM EDT [facility] Comment:Accuracy of a glucos e result obtained from a capillary whole blood specimen relies upon adequate, non-compromised capillary blood flow. If the capillary glucose result is not consistent with the patient's clinical signs and symptoms, glucose testing should be repeated with either an arterial or venous sample on the glucometer or sent to the main labortory for testing. Comment 11/22/2024 11:43 PM EDT [facility] Vp Genetic ID Niranjan Cardona 11:43 PM EDT [facility] Device ID [id number] 11/22/2024 11:43 PM EDT [facility] Specimen Type POC Capillary 11/22/2024 11:43 PM EDT [facility] Blood Capillary blood specimen / Unknown 11/22/2024 11:42 PM EDT 11/22/2024 11:43 PM EDT Cirilo Majano MD LAB POINT OF CARE TE ST DOCKED DEVICE UNSOLICITED RESULTS Final Result Performing Organization Address City/[facility]/ZIP Co de Phone Number [facility] [address] [place] [address] * (ABNORMAL) POCT glucose meter (11/22/2024 5:04 PM EDT) [facility] POCT Glucose 318(H) 74 - 99 mg/dL 11/22/2024 5:06 PM EDT [facility] Comment:Accuracy of [...] to the main labortory for testing. Comment 11/22/2024 5:06 PM EDT [facility] Vp Genetic ID Christal, Tameka 5:06 PM EDT [facility] Device ID [id number] 11/22/2024 5:06 PM EDT [facility] Specimen Type POC Capillary 11/22/2024 5:06 PM EDT [facility] Blood Capillary blood specimen / Unknown 11/22/2024 5:04 PM EDT 11/22/2024 5:06 PM EDT us Cirilo Majano MD LAB POINT OF CARE TE ST DOCKED DEVICE UNSOLICITED RESULTS Final Result Performing Organization Address City/[facility]/ZIP Co de Phone Number [facility] [address] [place] [address] * EEG (11/22/2024 1:41 PM EDT) Anatomical Region Laterality Modality EEG Narrative 11/23/2024 1:23 AM EDT Table formatting from the original result was not included. Electroencephalogram Report Patient: Michelle Felipe : 1950 SEX: female Referring Provider: Marisabel Subramanian MD EEG Reading Physician: Alf Coronado MD Study Type: R-IP Begin Date: 11/22/2024 Begin Time: 1:20 PM End Date: 11/22/2024 End Time: 1:41 PM Total EEG Recording Time: 21 minutes Indication for study: Concern for seizures SEIZURE HISTORY: Medications: Current Medications[1] ROUTINE-EEG MONITORING METHODOLOGY: This is a routine EEG with monitoring using 21-channel recordings (unless otherwise specified) in a 10/20 system with [employer] software and hardware. Video was available for review. Additional electrodes: none FT9/FT10: NO Other: none The seizure detection computer was used for detection of ictal discharges (subclinical and clinical), interictal discharges, and to record ictal events that were documented by depression of the event button in the patient's room. Analyses of the monitoring data were performed using the following techniques: 1. Review of the relevant video-EEG data. 2. Review of events detected by the computer system in detail. 3. Review of clinical seizures, with both detailed review of EEG and video and playback using multiple montages. A variety of referential and bipolar montages were used. Results of the monitoring were related to the treating team frequently throughout the study, at least once a day to help guide treatment via verbal or written communication. Updates and response to treatment were communicated as requested by the requesting physician or the team. CLINICAL AND EEG ANALYSIS INTERICTAL EEG DESCRIPTION: State of patient: awake Awake 100% Sleep: none Awake background: 6-7 Hz PDR noted intermittently. At other times diffuse 6-7 Hz theta activity noted in wakefulness. In anterior regions frontocentral beta was noted. Posterior dominant rhythm: 6- 7 Hz noted intermittently Voltage: 30-40 uV Organization: well organised Reactivity to eye opening/closure: good Sleep background: Stage of sleep were not attained. ACTIVATION PROCEDURES: none Hyperventilation: No hyperventilation was performed Photic stimulation: No photic stimulation was performed Reactivity to stimulation: reactive NONEPILEPTIFORM INTERICTAL ABNORMALITIES Diffuse 2-3 Hz intermittent delta activity noted. EPILEPTIFORM INTERICTAL ABNORMALITIES None ICTAL / EVENT DESCRIPTION: Clinical Description: none EEG Description: none Abnormalities: Diffuse 2-3 Hz intermittent delta activity noted. Diffuse theta activity CLINICAL INTERPRETATION: This is an abnormal awake and sleep EEG . Diffuse theta /delta slowing and slow PDR consistent with mild-moderate diffuse encephalopathy Absence of epileptiform discharges does not rule out epilepsy. NO electrographic seizures or clinical events recorded. Alf Coronado M.D. Staff Epileptologist [phone] [1] No current facility-administered medications for this visit. No current outpatient medications on file. Facility-Administered Medications Ordered in Other Visits Medication Dose Route Frequency Provider Last Rate Last Admin acetylcysteine (Mucomyst) 20 % solution 4 mL 4 mL Nebulization q6h Andra Mcwilliams MD 4 mL at 11/22/24 0832 albuterol (Proventil) (2.5 MG/3ML) 0.083% nebulizer solution 2.5 mg 2.5 mg Nebulization q6h Gricelda Harvey MD 2.5 mg at 11/22/24 0832 albuterol (Proventil) (2.5 MG/3ML) 0.083% nebulizer solution 2.5 mg 2.5 mg Nebulization q6h PRN Marisabel Subramanian MD atorvastatin (Lipitor) tablet 40 mg 40 mg Nasogastric Nightly Ruben Caal MBBS brimonidine (AlphaGAN P) 0.2 % ophthalmic solution 1 drop 1 drop Both Eyes Nightly Babs Alvarez MD 1 drop at 11/21/24 2020 calcium-vitamin D 500-200 MG-UNIT per tablet 1 tablet 1 tablet Nasogastric Daily Babs Alvarez MD 1 tablet at 11/22/24 1214 cetirizine (ZyrTEC) tablet 10 mg 10 mg Nasogastric Nightly Babs Alvarez MD glucose (Glutose) 40 % oral gel 15-30 grams of glucose 15-30 grams of glucose Sublingual q15 min PRN Ruben Caal MBBS Or dextrose 10 % (D10W) bolus 125 mL 125 mL Intravenous q15 min PRN Ruben Caal MBBS Or dextrose 10 % (D10W) bolus 250 mL 250 mL Intravenous q15 min PRN Ruben Caal MBBS Or glucagon (human recombinant) injection 1 mg 1 mg Intramuscular q15 min PRN Ruben Caal MBBS ezetimibe (Zetia) tablet 10 mg 10 mg Nasogastric Daily Babs Alvarez MD 10 mg at 11/22/24 1214 furosemide (Lasix) tablet 80 mg 80 mg Nasogastric Daily Gricelda Harvey MD 80 mg at 11/22/24 1214 gabapentin (Neurontin) capsule 600 mg 600 mg Nasogastric BID Marisabel Subramanian MD 600 mg at 11/22/24 1214 hydrALAZINE (Apresoline) injection 10 mg 10 mg Intravenous q1h PRN Rbuen Caal MBBS Or hydrALAZINE (Apresoline) injection 20 mg 20 mg Intravenous q1h PRN Ruben Caal MBBS hydroxychloroquine (Plaquenil) tablet 200 mg 200 mg Nasogastric Nightly Babs Alvarez MD insulin regular (HumuLIN R,NovoLIN R) 100 units/mL injection - Correction - Resistant Dose 0-10 Units Subcutaneous q6h MELLY Babs Alvarez MD labetalol (Normodyne,Trandate) injection 10 mg 10 mg Intravenous q1h PRN Ruben Caal MBBS Or labetalol (Normodyne,Trandate) injection 20 mg 20 mg Intravenous q1h PRN Ruben Caal MBBS latanoprost (Xalatan) 0.005 % ophthalmic solution 1 drop 1 drop Both Eyes Nightly Babs Alvarez MD 1 drop at 11/21/242019 levothyroxine (Synthroid, Levoxyl) tablet 125 mcg 125 mcg Nasogastric Daily with breakfast Babs Alvarez MD 125 mcg at 11/22/244 metoprolol tartrate (Lopressor) tablet 25 mg 25 mg Nasogastric BID Cirilo Majano MD Tiotropium [place] Monohydrate (Spiriva Respimat) 2.5 MCG/ACT inhaler 2 puff 2 puff Inhalation Daily Babs Alvarez MD 2 puff at 11/22/24 1213 And mometasone-formoterol (Dulera 100) 100-5 MCG/ACT inhaler 2 puff 2 puff Inhalation BID Babs Alvarez MD 2 puff at 11/22/24 1213 mycophenolate (Cellcept) 200 MG/ML suspension 1,000 mg 1,000 mg Nasogastric BID Marisabel Subramanian MD 1,000 mg at 11/22/24 1215 nitroglycerin (Nitrostat) SL tablet 0.4 mg 0.4 mg Sublingual q5 min PRN Babs Alvarez MD senna-docusate (Karyn-Colace) 8.6-50 MG per tablet 1 tablet 1 tablet Nasogastric BID Cirilo Majano MD sodium chloride 0.9 % flush 10 mL 10 mL Intravenous q12h Ruben Caal MBBS 10 mL at 11/21/24 1322 And sodium chloride 0.9 % flush 10 mL 10 mL Intravenous PRN Ruben Caal MBBS warfarin (Coumadin) tablet 5 mg 5 mg Nasogastric Once per day on Friday Marisabel Subramanian MD [START ON 11/23/2024] warfarin (Coumadin) tablet 7.5 mg 7.5 mg Nasogastric Every Friday Marisabel Subramanian MD Marisabel Subramanian MD NEUROLOGY ORDERABLES Final Re sult * (ABNORMAL) POCT glucose meter (11/22/2024 12:07 PM EDT) POCT Glucose 326(H) 74 - 99 mg/dL 11/22/2024 12:12 PM EDT [facility] Comment:Accuracy of [...] to the main labortory for testing. Comment 11/22/2024 12:12 PM EDT [facility] Vp Genetic ID David Freitas 11/22/2024 12:12 PM EDT [facility] Device ID [id number] 11/22/2024 12:12 PM EDT [facility] Specimen Type POC Capillary 11/22/2024 12:12 PM EDT [facility] Blood Capillary blood specimen / Unknown 11/22/2024 12:07 PM EDT 11/22/2024 12:12 PM EDT Cirilo Majano MD LAB POINT OF CARE TE ST DOCKED DEVICE UNSOLICITED RESULTS Final Result Performing Organization Address City/State/[facility] Phone Number [facility] [address] [place] [address] * PERIPHERAL IV (SMARTFORM LINK) (11/22/2024 10:02 AM EDT) Narrative Alex Grewal RN - 11/22/2024 10:02 AM EDT Alex Grewal RN 11/22/2024 10:03 AM Insert peripheral IV Performed by: Alex Grewal, RN Authorized by: Cirilo Majano MD Hand hygiene: Hand hygiene performed prior to insertion Inserted using aseptic techniques: Yes Preparation: Skin prepped with chg Orientation: Left, anterior and lower Location: Forearm Catheter placed: Peripheral IV Catheter size: 20g/1.16in Line Technique: Ultrasound Guidance Number of attempts: 1 IV flushes: Without difficulty and positive blood return noted and IV luer locked Patient tolerance: Patient tolerated the procedure well and there were no complications Patient comfort measures used: Distraction and position of comfort IV site covered with: Transparent semipermeable dressing Comments: Labs drawn with IV insertion Cirilo Majano MD IV THERAPY ORDERABLES Final Result * (ABNORMAL) Prothrombin Time/INR (11/22/2024 9:42 AM EDT) Pathologist [facility] Prothrombin Time 19.2(H) 12.0 - 14.3 sec LAB COAGULATION METHOD 11/22/2024 10:22 AM EDT [facility] INR 1.6(H) 0.9 - 1.1 LAB COAGULATION METHOD 11/22/2024 10:22 AM EDT [facility] Blood Venous blood specimen / Unknown Venipuncture / Unknown 11/22/2024 9:42 AM EDT 11/22/2024 10:00 AM EDT Narrative [facility] - 11/22/2024 10:22 AM EDT OPTIMAL INR RANGES FOR PATIENT ON ORAL ANTICOAGULANT THERAPY Prevention of venous thromboembolism INR 2.0 to 3.0 In patients with heart disease: Atrial fibrillation INR 2.0 to 3.0 Valvular heart disease INR 2.0 to 3.0 Tissue heart valves INR 2.0 to 3.0 Mechanical prosthetic valves INR 2.5 to 3.5 Prevention of recurrent TN INR 2.5 to 3.5 us Marisabel Subramanian MD LAB BLOOD ORDERABLES Final Re sult [facility] [address] [place] [address] * (ABNORMAL) Comprehensive metabolic panel (11/22/2024 9:42 AM EDT) Glucose, Plasma 278(H) 74 - 99 mg/dL 11/22/2024 10:35 AM EDT [facility] BUN, Plasma 33(H) 8 - 23 mg/dL 11/22/2024 10:35 AM EDT [facility] Creatinine, Plasma 0.97 0.60 - 1.10 mg/dL 11/22/2024 10:35 AM EDT [facility] BUN/Creatinine Ratio 34 11/22/2024 10:35 AM EDT [facility] Sodium, Plasma 137 136 - 145 mmol/L 11/22/2024 10:35 AM EDT [facility] Potassium, Plasma 4.1 3.6 - 4.9 mmol/L 11/22/2024 10:35 AM EDT [facility] Chloride, Plasma 92(L) 97 - 107 mmol/L 11/22/2024 10:35 AM EDT [facility] CO2, Plasma 24 22 - 29 mmol/L 11/22/2024 10:35 AM EDT [facility] Anion Gap 21(H) 6 - 16 mmol/L 11/22/2024 10:35 AM EDT [facility] Total Calcium, Plasma 9.4 8.9 - 10.2 mg/dL 11/22/2024 10:35 AM EDT [facility] Total Protein 7.1 6.3 - 7.9 g/dL 11/22/2024 10:35 AM EDT [facility] Albumin, Plasma 3.3(L) 3.5 - 5.2 g/dL 11/22/2024 10:35 AM EDT [facility] AST, Plasma 42(H) 10 - 35 U/L 11/22/2024 10:35 AM EDT [facility] Comment:Hemolyzed, result ma y be falsely increased. ALT, Plasma 25 10 - 35 U/L 11/22/2024 10:35 AM EDT [facility] Alkaline Phosphatase, Plasma 128 46 - 142 U/L 11/22/2024 10:35 AM EDT [facility] Total Bilirubin, Plasma 0.5 0.2 - 1.1 mg/dL 11/22/2024 10:35 AM EDT [facility] eGFRcr 61.8 mL/min/1.7 3m*2 11/22/2024 10:35 AM EDT [facility] Comment:Reported eGFRcr in m L/min/1.73m2 is based the CKD-EPI 2020 equation that does not use a race coefficient. Blood Venous blood specimen / Unknown Venipuncture / Unknown 11/22/2024 9:42 AM EDT 11/22/2024 10:00 AM EDT us Marisabel Subramanian MD LAB BLOOD ORDERABLES Final Re sult [facility] [address] [place] [address] * (ABNORMAL) CBC and differential (11/22/2024 9:42 AM EDT) WBC Count 8.81 3.70 - 10.30 10*3/uL LAB HEMATOLOGY METHOD 11/22/2024 10:11 AM EDT [facility] RBC Count 3.95 3.90 - 5.20 10*6/uL LAB HEMATOLOGY METHOD 11/22/2024 10:11 AM EDT [facility] HGB 11.9 11.2 - 15.7 g/dL LAB HEMATOLOGY METHOD 11/22/2024 10:11 AM EDT [facility] HCT 37.4 34.0 - 45.0 % LAB HEMATOLOGY METHOD 11/22/2024 10:11 AM EDT [facility] Platelet Count 392(H) 155 - 369 10*3/uL LAB HEMATOLOGY METHOD 11/22/2024 10:11 AM EDT [facility] MCV 95 79 - 98 fL LAB HEMATOLOGY METHOD 11/22/2024 10:11 AM EDT [facility] MCH 30.1 26.0 - 32.0 pg LAB HEMATOLOGY METHOD 11/22/2024 10:11 AM EDT [facility] MCHC 31.8 30.7 - 35.5 g/dL LAB HEMATOLOGY METHOD 11/22/2024 10:11 AM EDT [facility] RDW 15.0(H) 11.5 - 14.5 % LAB HEMATOLOGY METHOD 11/22/2024 10:11 AM EDT [facility] MPV 9.8 8.8 - 12.5 fL LAB HEMATOLOGY METHOD 11/22/2024 10:11 AM EDT [facility] nRBC 0.0 <=0.0 per 100 WBCs LAB HEMATOLOGY METHOD 11/22/2024 10:11 AM EDT [facility] Differential Type Automated LAB HEMATOLOGY METHOD 11/22/2024 10:11 AM EDT [facility] Neutrophils % 83 % LAB HEMATOLOGY METHOD 11/22/2024 10:11 AM EDT [facility] Lymphocytes % 8 % LAB HEMATOLOGY METHOD 11/22/2024 10:11 AM EDT [facility] Monocytes % 7 % LAB HEMATOLOGY METHOD 11/22/2024 10:11 AM EDT [facility] Eosinophils % 0 % LAB HEMATOLOGY METHOD 11/22/2024 10:11 AM EDT [facility] Basophils % 1 % LAB HEMATOLOGY METHOD 11/22/2024 10:11 AM EDT [facility] Immature Granulocytes % 1 % LAB HEMATOLOGY METHOD 11/22/2024 10:11 AM EDT [facility] Neutrophils Absolute 7.42(H) 1.60 - 6.10 10*3/uL LAB HEMATOLOGY METHOD 11/22/2024 10:11 AM EDT [facility] Lymphocytes Absolute 0.69(L) 1.20 - 3.90 10*3/uL LAB HEMATOLOGY METHOD 11/22/2024 10:11 AM EDT [facility] Monocytes Absolute 0.62 0.30 - 0.90 10*3/uL LAB HEMATOLOGY METHOD 11/22/2024 10:11 AM EDT [facility] Eosinophils Absolute 0.00 0.00 - 0.50 10*3/uL LAB HEMATOLOGY METHOD 11/22/2024 10:11 AM EDT [facility] Basophils Absolute 0.04 0.00 - 0.10 10*3/uL LAB HEMATOLOGY METHOD 11/22/2024 10:11 AM EDT [facility] Immature Granulocytes Absolute 0.04 0.00 - 0.06 10*3/uL LAB HEMATOLOGY METHOD 11/22/2024 10:11 AM EDT [facility] Blood Venous blood specimen / Unknown Venipuncture / Unknown 11/22/2024 9:42 AM EDT 11/22/2024 10:02 AM EDT Narrative [facility] - 11/22/2024 10:11 AM EDT Therapeutic decision making should be based on absolute values, rather than percentages. us Marisabel Subramanian MD LAB BLOOD ORDERABLES Final Re sult [facility] [address] [place] [address] * CT Head wo IV Contrast (11/22/2024 6:21 AM EDT) Anatomical Region Laterality Modality Head Computed Tomogra phy Addenda Addendum by Isabelle Maurice MD on 11/22/2024 10:36 AM EDT Addendum: ADDENDUM: The patient's primary team acknowledged critical result at 9:52 AM via [employer] secure chat. Drafted by Isabelle Maurice MD on 11/22/2024 10:36 AM Final report signed by Isabelle Maurice MD on 11/22/2024 10:36 AM Impressions 11/22/2024 9:43 AM EDT Focal area of acute ischemic injury in the medial and posterior right temporal lobe with mild associated local mass effect. No evidence of hemorrhagic transformation. CRITICAL RESULT: Yes. COMMUNICATION: Per this written report. These findings were discussed via secure chat with Babs Maddox MD on 11/22/2024 9:32 AM by Patrick Johnson MD but the result was not acknowledged. Attempts was made to reach the primary team via MDs and they were trying to reach the primary team at the time of finalizing this report. By electronically signing this report, I, the attending physician, attest that I have personally reviewed the images/data for the above examination(s) and agree with the final edited report. Drafted by Patrick Johnson MD on 11/22/2024 8:26 AM Final report signed by Isabelle Maurice MD on 11/22/2024 9:43 AM Narrative 11/22/2024 9:43 AM EDT CLINICAL INDICATION: Stroke, follow up TECHNIQUE: Spiral axial CT images of the head were obtained without contrast administration using a duel energy technique. Total DLP (Dose-Length Product): 756.85 mGy.cm. Please note: The reported value represents the total of one or more individual components during the CT acquisition on this date and at this time, and as such, the same value may appear in more than one CT report depending on the interpreting/reporting physicians. COMPARISON: CT head dated 11/20/2024 FINDINGS: Diagnostic Quality: Adequate. There is nonspecific focal area of loss of longoria and white matter differentiation in the medial and posterior right temporal lobe (series 5, image 21, 22; coronal series 8, image 144) corresponding to acute ischemic injury. There is mild associated edema causing effacement of the local sulci. There is no evidence of hemorrhagic transformation. There is a background of mild to moderate diffuse parenchymal volume loss with patchy areas of hypoattenuation in the white matter of cerebral hemispheres which possibly represent sequelae of chronic microvascular ischemia. No acute intracranial hemorrhage or mass effect or midline shift is seen. There is ex vacuo prominence of the sulcal spaces of the ventricular system. The basal cisterns are within normal limits. No abnormal extra-axial fluid collection is seen. Soft Tissues: No significant soft tissue swelling is present. 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 Skull: There are no calvarial destructive lesions or fractures. Sinuses and Mastoids: Partially visualized portions of the paranasal sinuses are clear. Mastoid air cells are clear. Procedure Note Isabelle Maurice MD - 11/22/2024 CLINICAL INDICATION: Stroke, follow up TECHNIQUE: Spiral axial CT images of the head were obtained without contrastadministration using a duel energy technique. Total DLP (Dose-Length Product): 756.85 mGy.cm. Please note: The reportedvalue represents the total of one or more individual components during theCT acquisition on this date and at this time, and as such, the same valuemay appear in more than one CT report depending on theinterpreting/reporting physicians. COMPARISON: CT head dated 11/20/2024 FINDINGS: Diagnostic Quality: Adequate. There is nonspecific focal area of loss of longoria and white matterdifferentiation in the medial and posterior right temporal lobe (series 5,image 21, 22; coronal series 8, image 144) corresponding to acute ischemicinjury. There is mild associated edema causing effacement of the localsulci. There is no evidence of hemorrhagic transformation. There is a background of mild to moderate diffuse parenchymal volume losswith patchy areas of hypoattenuation in the white matter of cerebralhemispheres which possibly represent sequelae of chronic microvascularischemia. No acute intracranial hemorrhage or mass effect or midline shift isseen. There is ex vacuo prominence of the sulcal spaces of the ventricularsystem. The basal cisterns are within normal limits. No abnormalextra-axial fluid collection is seen. Soft Tissues: No significant soft tissue swelling is present.Redemonstrated osteoarthritic changes of the bilateral temporomandibularjoints. Skull: There are no calvarial destructive lesions or fractures. Sinuses and Mastoids: Partially visualized portions of the paranasalsinuses are clear. Mastoid air cells are clear. IMPRESSION: Focal area of acute ischemic injury in the medial and posterior righttemporal lobe with mild associated local mass effect. No evidence ofhemorrhagic transformation. CRITICAL RESULT: Yes. COMMUNICATION: Per this written report. These findings were discussed via secure chatwith Babs Maddox MD on 11/22/2024 9:32 AM by Patrick Johnson MDbut the result was not acknowledged. Attempts was made to reach theprimary team via MDs and they were trying to reach the primary team atthe time of finalizing this report. By electronically signing this report, I, the attending physician, attestthat I have personally reviewed the images/data for the aboveexamination(s) and agree with the final edited report. Drafted by Patrick Johnson MD on 11/22/2024 8:26 AM Final report signed by Isabelle Maurice MD on 11/22/2024 9:43 AM us Marisabel Subramanian MD IMG CT PROCEDURES Edited Resu lt - Final * (ABNORMAL) POCT glucose meter (11/22/2024 12:15 AM EDT) POCT Glucose 172(H) 74 - 99 mg/dL 11/22/2024 12:17 AM EDT [facility] Comment:Accuracy of [...] to the main labortory for testing. Comment 11/22/2024 12:17 AM EDT [facility] Vp Genetic ID Galilea Mehta 11/23/19 12:17 AM EDT [facility] Device ID [id number] 11/22/2024 12:17 AM EDT [facility] Specimen Type POC Capillary 11/22/2024 12:17 AM EDT [facility] Blood Capillary blood specimen / Unknown 11/22/2024 12:15 AM EDT 11/22/2024 12:17 AM EDT us Marisabel Subramanian MD LAB POINT OF CARE TE ST DOCKED DEVICE UNSOLICITED RESULTS Final Result [facility] [address] [place], [place] [id number] * XR Abdomen 1 View (11/21/2024 5:45 PM EDT) Anatomical Region Laterality Modality Body Digital Radiogra phy Impressions 11/21/2024 7:17 PM EDT The enteric tube loops in the midabdomen with the tip in the left upper quadrant. CRITICAL RESULT: No. COMMUNICATION: Per this written report. Drafted by Shanti Quintero MD on 11/21/2024 7:17 PM Final report signed by Shanti Quintero MD on 11/21/2024 7:17 PM Narrative 11/21/2024 7:17 PM EDT CLINICAL INDICATION: Confirm proper placement of NG tube TECHNIQUE: Supine radiograph of the abdomen. COMPARISON: None. FINDINGS: Limited [id number] abdominal radiograph for the purpose of locating tube position. The enteric tube loops in the midabdomen with the tip in the left upper quadrant. Procedure Note Shanti Quintero MD - 11/21/2024 CLINICAL INDICATION: Confirm proper placement of NG tube TECHNIQUE: Supine radiograph of the abdomen. COMPARISON: None. FINDINGS: Limited [id number] abdominal radiograph for the purpose of locatingtube position. The enteric tube loops in the midabdomen with the tip in the left upperquadrant. IMPRESSION: The enteric tube loops in the midabdomen with the tip in the left upperquadrant. CRITICAL RESULT: No. COMMUNICATION: Per this written report. Drafted by Shanti Quintero MD on 11/21/2024 7:17 PM Final report signed by Shanti Quintero MD on 11/21/2024 7:17 PM Marisabel Subramanian MD IMG XR PROCEDURES Final Resul t * XR Chest 1 View (11/21/2024 5:06 PM EDT) Anatomical Region Laterality Modality Chest Digital Radiogra phy Impressions 11/21/2024 5:24 PM EDT Moderate right and small left pleural effusions. Vascular congestion CRITICAL RESULT: No COMMUNICATION: Per this written report. Drafted by Shanti Quintero MD on 11/21/2024 5:24 PM Final report signed by Shanti Quintero MD on 11/21/2024 5:24 PM Narrative 11/21/2024 5:24 PM EDT CLINICAL INDICATION: Oxygen desat to 70s TECHNIQUE: XR CHEST 1 VIEW COMPARISON: None. FINDINGS: The cardiomediastinal silhouette is remarkable. Moderate right and small left pleural effusions with lower lobe opacities. Left chest ICD with leads overlying the right atrium and right ventricle. Underlying vascular congestion. Procedure Note Shanti Quintero MD - 11/21/2024 CLINICAL INDICATION: Oxygen desat to 70s TECHNIQUE: XR CHEST 1 VIEW COMPARISON: None. FINDINGS: The cardiomediastinal silhouette is remarkable. Moderate right and smallleft pleural effusions with lower lobe opacities. Left chest ICD withleads overlying the right atrium and right ventricle. Underlying vascularcongestion. IMPRESSION: Moderate right and small left pleural effusions. Vascular congestion CRITICAL RESULT: No COMMUNICATION: Per this written report. Drafted by Shanti Quintero MD on 11/21/2024 5:24 PM Final report signed by Shanti Quintero MD on 11/21/2024 5:24 PM Marisabel Subramanian MD IMG XR PROCEDURES Final Resul t * (ABNORMAL) POCT glucose meter (11/21/2024 4:34 PM EDT) [facility] POCT Glucose 168(H) 74 - 99 mg/dL 11/21/2024 4:49 PM EDT [facility] Comment:Accuracy of a glucos e result obtained from a capillary whole blood specimen relies upon adequate, non-compromised capillary blood flow. If the capillary glucose result is not consistent with the patient's clinical signs and symptoms, glucose testing should be repeated with either an arterial or venous sample on the glucometer or sent to the main labortory for testing. Comment 11/21/2024 4:49 PM EDT [facility] Vp Genetic ID Hira Whitten 4:49 PM EDT [facility] Device ID [id number] 11/21/2024 4:49 PM EDT [facility] Specimen Type POC Capillary 11/21/2024 4:49 PM EDT [facility] Blood Capillary blood specimen / Unknown 11/21/2024 4:34 PM EDT 11/21/2024 4:49 PM EDT Marisabel Subramanian MD LAB POINT OF CARE TE ST DOCKED DEVICE UNSOLICITED RESULTS Final Result [facility] [address] [place] [address] * (ABNORMAL) POCT glucose meter (11/21/2024 12:01 PM EDT) [facility] POCT Glucose 163(H) 74 - 99 mg/dL 11/21/2024 12:18 PM EDT [facility] Comment:Accuracy [...] to the main labortory for testing. Comment 11/21/2024 12:18 PM EDT [facility] Vp Genetic ID Hira Whitten 12:18 PM EDT [facility] Device ID [id number] 11/21/2024 12:18 PM EDT [facility] Specimen Type POC Capillary 11/21/2024 12:18 PM EDT [facility] Blood Capillary blood specimen / Unknown 11/21/2024 12:01 PM EDT 11/21/2024 12:18 PM EDT us Marisabel Subramanian MD LAB POINT OF CARE TE ST DOCKED DEVICE UNSOLICITED RESULTS Final Result [facility] [address] [place] [id number] * ECHO, ADULT TRANSTHORACIC COMPLETE W/ CONTRAST (11/21/2024 10:42 AM EDT) [facility] BSA 1.56 m2 DARI ISCV Height 162.6 DARI ISCV Weight 53.1 DARI ISCV LVIDs 27 mm DARI ISCV LA dimension 53 mm DARI ISCV IVSd 11 mm DARI ISCV LVIDd 37 mm DARI ISCV LVPWd 10 mm DARI ISCV LV MASS(C)D 120 g DARI ISCV [facility] CV ECHO LV MASS INDEX 77 g/m2 DARI ISCV LV RWT 0.57 mm DARI ISCV Ao Root Diam 27 mm DARI ISCV Asc Ao Diam 31 mm DARI ISCV TR Vmax 352.9 cm/s DARI ISCV TR Max PG 50 mmHG DARI ISCV PA acc time 70 msec DARI ISCV mean PAP 48 mmHg DARI ISCV PA GA(ACCEL) 47.3 mmHg DARI ISCV PA acc slope 1,273.0 cm/s2 DARI ISCV AI Vmax 440.3 cm/s DARI ISCV AI max PG 78 mmHg DARI ISCV AI dec slope 225 cm/s2 DARI ISCV RA MOD 4Ch 90 mL DARI ISCV HUMBERTO 58 mL/m2 DARI ISCV RVSP 53 mmHg DARI ISCV RAP systole 3 mmHg DARI ISCV LAV(MOD-4ch) 127 mL DARI ISCV LAV(MOD-bp) Indexed 93 mL/m2 DARI ISCV LAV(MOD-2ch) 163 mL DARI ISCV RV s' Sumit 10.0 cm/s DARI ISCV LV Sept e' Sumit 4.7 cm/s DARI ISCV LV Lat e' Velocity 7.8 cm/s DARI ISCV MV V2 VTI 52.2 cm DARI ISCV MV MG 5 mmHg DARI ISCV MV V2 max 199.5 cm/s DARI ISCV MV max PG 16 mmHg DARI ISCV MV dec slope 385 cm/s2 DARI ISCV LVOT diam 18 mm DARI ISCV LVOT AREA 2.5 cm2 DARI ISCV LV V1 VTI 18.9 cm DARI ISCV SV(LVOT) 48 mL DARI ISCV LV V1 Vmax 88.6 cm/s DARI ISCV LV mean PG 1.4 mmHG DARI ISCV LV V1 mean 55.1 cm/sec DARI ISCV LV max PG 3.1 mmHg DARI ISCV Aortic R-R 1,000 ms DARI ISCV CO(LVOT) 2.9 L/min DARI ISCV CO(LVOT) 184.9 L/min DARI ISCV LV EDV(MOD-4ch) 91 mL DARI ISCV LV ESV(MOD4ch) 72 mL DARI ISCV EF(MOD-sp4) 21 % DARI ISCV LV EDV(MOD-2ch) 112 mL DARI ISCV EDV(MOD-bp) 102 mL DARI ISCV LV ESV(MOD2ch) 42 mL DARI ISCV EF(MOD-sp2) 63 % DARI ISCV ESV(MOD-bp) 57 mL DARI ISCV EF(MOD-bp) 44 % DARI ISCV LVLs ap2 5.4 mm DARI ISCV Anatomical Region Laterality Modality Echocardiography Narrative 11/21/2024 1:40 PM EDT Left Ventricle: The left ventricle is dilated. No left ventricular mass or thrombus is seen. The LVEF as measured by biplane volume is 44%. Unable to assess diastolic function due to mitral valve disease. The left ventricular filling pressure is elevated. See diagram below for wall motion findings. The septal motion is most consistent with a conduction abnormality. Right Ventricle: The right ventricle is dilated. A catheter/lead is present in the right ventricle. The right ventricular systolic function is grossly normal. The estimated right ventricular systolic pressure is 53 mmHg. 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 There is restricted motion of the posterior leaflet. There is calcification on the mitral valve leaflets. There is severe mitral annular calcification. The mitral valve chordae are thickened and/or calcified. There is mild mitral regurgitation. There is mild mitral stenosis. The mean mitral valve pressure gradient is estimated to be 5 mmHg at a heart rate of 60 bpm. Aortic Valve: The aortic valve appears to be trileaflet. There is calcification of the aortic valve leaflets. There is aortic annular calcification present. There is mild aortic valve regurgitation. There is no hemodynamically significant valvular aortic stenosis. Tricuspid Valve: There is mild tricuspid regurgitation. Pulmonic Valve: There is moderate pulmonic regurgitation. There is no recent study available for direct [id number] comparison. Left Ventricle The left ventricle is dilated. No left ventricular mass or thrombus is seen. The LVEF as measured by biplane volume is 44%. Unable to assess diastolic function due to mitral valve disease. The left ventricular filling pressure is elevated. See diagram below for wall motion findings. The septal motion is most consistent with a conduction abnormality. Right Ventricle The right ventricle is dilated. A catheter/lead is present in the right ventricle. The right ventricular systolic function is grossly normal. The estimated right ventricular systolic pressure is 53 mmHg. Left Atrium The left atrial size is severely increased with an indexed volume of >48 mL/m2. The interatrial septum is intact with no evidence for an atrial septal defect. Right Atrium The right atrial volume index is severely increased (>46mL/m2). There is a catheter/lead present in the right atrium. IVC/SVC Based on the IVC size and respiratory variation, the estimated right atrial pressure is 3mmHg. 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 There is restricted motion of the posterior leaflet. There is calcification on the mitral valve leaflets. There is severe mitral annular calcification. The mitral valve chordae are thickened and/or calcified. There is mild mitral regurgitation. There is mild mitral stenosis. The mean mitral valve pressure gradient is estimated to be 5 mmHg at a heart rate of 60 bpm. Tricuspid Valve The tricuspid valve is grossly normal in appearance. There is mild tricuspid regurgitation. There is no tricuspid stenosis. Aortic Valve The aortic valve appears to be trileaflet. There is calcification of the aortic valve leaflets. There is aortic annular calcification present. There is mild aortic valve regurgitation. There is no hemodynamically significant valvular aortic stenosis. Pulmonic Valve The pulmonic valve is normal in appearance. There is moderate pulmonic regurgitation. There is no pulmonic stenosis. Pericardium No pericardial effusion. Great Vessels The aortic root is normal in size. The sinus of Valsalva (aortic root) diameter is 27 mm by leading edge to leading edge method. In the maximally visualized portion, the ascending aorta appears normal in size. The ascending aorta diameter is 31 mm. The main pulmonary artery is normal in size. Extracardiac There is a right pleural effusion. Study Details A complete transthoracic echocardiogram using two-dimensional (2D), m-mode, color and spectral flow Doppler imaging was performed. Definity contrast was used during the study. The study was technically difficult due to patient's uncooperativeness. Height: 162.6 cm. Weight: 53.1 kg. BSA: 1.56 m2. Study Recommendation There is no recent study available for direct [id number] comparison. Wall Scoring Baseline Score Index: 1.47 The following segments are hypokinetic: basal anterior, basal inferoseptal, basal inferior, basal inferolateral, basal anterolateral, mid inferoseptal, mid inferior and mid anterolateral. All other segments are normal. us Everette Colon MD CV ECHO PROCEDURES Final R esult * (ABNORMAL) POCT glucose meter (11/21/2024 7:57 AM EDT) POCT Glucose 166(H) 74 - 99 mg/dL 11/21/2024 8:26 AM EDT [facility] Comment:Accuracy of a glucos e result obtained from a capillary whole blood specimen relies upon adequate, non-compromised capillary blood flow. If the capillary glucose result is not consistent with the patient's clinical signs and symptoms, glucose testing should be repeated with either an arterial or venous sample on the glucometer or sent to the main labortory for testing. Comment 11/21/2024 8:26 AM EDT [facility] Vp Genetic ID Hira Whitten 8:26 AM EDT [facility] Device ID [id number] 11/21/2024 8:26 AM EDT [facility] Specimen Type POC Capillary 11/21/2024 8:26 AM EDT [facility] Blood Capillary blood specimen / Unknown 11/21/2024 7:57 AM EDT 11/21/2024 8:26 AM EDT Marisabel Subramanian MD LAB POINT OF CARE TE ST DOCKED DEVICE UNSOLICITED RESULTS Final Result [facility] [address] [place] [address] * Lipid panel (11/21/2024 3:11 AM EDT) Cholesterol, Plasma 95 <200 mg/dL 11/21/2024 4:39 AM EDT [facility] Comment: Cholesterol Reference Range (age >17 years): Desirable <200 mg/dL Borderline 200 to 239 mg/dL Undesirable >239 mg/dL HDL 50 >=50 mg/dL 11/21/2024 4:39 AM EDT [facility] Comment: HDL Cholesterol Reference Ranges (age >17 years): Female, acceptable > or = 50 mg/dL Male, acceptable > or = 40 mg/dL Triglycerides, Plasma 65 <150 mg/dL 11/21/2024 4:39 AM EDT [facility] Comment: Triglyceride Reference Range (age >17 years): Desirable: <150 mg/dL Borderline high: 150 to 199 mg/dL High: 200 to 499 mg/dL Very high: >499 mg/dL Increased risk of pancreatitis: >1000 mg/dL Cholesterol/HDL Ratio 2 11/21/2024 4:39 AM EDT [facility] LDL, Calculated 31 <100 mg/dL 4:39 AM EDT [facility] Comment: LDL Cholesterol Reference Range (age >17 years): Optimal: <100 mg/dL Near or above optimal: 100 - 129 mg/dL Borderline high: 130 - 159 mg/dL High: 160 - 189 mg/dL Very high: >189 mg/dL LDL Cholesterol Reference Range (age <18 years): Desirable: <110 mg/dL Borderline: 110 - 129 mg/dL Undesirable: >130 mg/dL LDL Cholesterol is calculated using the Gipson/NIH equation. Fasting greater than or equal to 12 hours? Yes 11/21/2024 4:39 AM EDT [facility] Blood Venous blood specimen / Unknown Venipuncture / Unknown 11/21/2024 3:11 AM EDT 11/21/2024 3:20 AM EDT us Everette Colon MD LAB BLOOD ORDERABLES Final Result [facility] [address] [place] [address] * (ABNORMAL) POCT glucose meter (11/20/2024 9:00 PM EDT) POCT Glucose 190(H) 74 - 99 mg/dL 11/20/2024 9:02 PM EDT [facility] Comment:Accuracy of [...] to the main labortory for testing. Comment 11/20/2024 9:02 PM EDT [facility] Vp Genetic ID Tosha Sims 025 9:02 PM EDT [facility] Device ID [id number] 11/20/2024 9:02 PM EDT [facility] Specimen Type POC Capillary 11/20/2024 9:02 PM EDT [facility] Blood Capillary blood specimen / Unknown 11/20/2024 9:00 PM EDT 11/20/2024 9:02 PM EDT us Marisabel Subramanian MD LAB POINT OF CARE TE ST DOCKED DEVICE UNSOLICITED RESULTS Final Result Performing Organization Address [facility] Co de Phone Number [facility] [address] [place] [address] * (ABNORMAL) POCT glucose meter (11/20/2024 5:32 PM EDT) [facility] POCT Glucose 179(H) 74 - 99 mg/dL 11/20/2024 5:35 PM EDT [facility] Comment:Accuracy of [...] to the main labortory for testing. Comment 11/20/2024 5:35 PM EDT [facility] Vp Genetic ID Hira Whitten 5:35 PM EDT [facility] Device ID [id number] 11/20/2024 5:35 PM EDT [facility] Specimen Type POC Capillary 11/20/2024 5:35 PM EDT [facility] Blood Capillary blood specimen / Unknown 11/20/2024 5:32 PM EDT 11/20/2024 5:35 PM EDT Marisabel Subramanian MD LAB POINT OF CARE TE ST DOCKED DEVICE UNSOLICITED RESULTS Final Result Performing Organization Address [facility] de Phone Number [facility] [address] [place] [address] * (ABNORMAL) Troponin T, High Sensitivity, 2 Hour, Plasma (11/20/2024 3:26 PM EDT) [facility] Troponin T, High Sensitivity, 2 Hour 112(H) <14 ng/L 11/20/2024 4:36 PM EDT [facility] Troponin Delta Interpretation Not Calculated 11/20/2024 4:36 PM EDT [facility] Comment:Specimen not collect ed within acceptable timeframe. Delta will not be calculated. Blood Venous blood specimen / Unknown Venipuncture / Unknown 11/20/2024 3:26 PM EDT 11/20/2024 3:43 PM EDT Arlette Soliman MD LAB BLOOD ORDERABLES Final Result Performing Organization Address City/[facility]/[place] [address] * (ABNORMAL) APTT (PTT) (11/20/2024 3:26 PM EDT) aPTT 37(H) 25 - 35 sec 11/20/2024 4:47 PM EDT [facility] Blood Venous blood specimen / Unknown Venipuncture / Unknown 11/20/2024 3:26 PM EDT 11/20/2024 3:43 PM EDT Arlette Soliman MD LAB BLOOD ORDERABLES Final Result Performing Organization Address [facility] [place] [address] * Anti Xa Level Unfractionated Heparin (11/20/2024 3:26 PM EDT) Anti Xa Level Unfractionated Heparin <0.11 <1.00 IU/mL 11/20/2024 4:47 PM EDT [facility] Blood Venous blood specimen / Unknown Venipuncture / Unknown 11/20/2024 3:26 PM EDT 11/20/2024 3:43 PM EDT Narrative [facility] - 11/20/2024 4:47 PM EDT Therapeutic Range: UFH Full Dose and ACS/TN protocols*: 0.30 - 0.70 IU/mL UFH Low Dose protocol*: 0.25 - 0.50 IU/mL UFH prophylaxis: Not established Arlette Soliman MD LAB BLOOD ORDERABLES Final Result Performing Organization Address [facility]/[place] [address] * (ABNORMAL) Prothrombin Time (11/20/2024 3:26 PM EDT) Prothrombin Time 27.0(H) 12.0 - 14.3 sec 11/20/2024 4:47 PM EDT [facility] INR 2.5(H) 0.9 - 1.1 11/20/2024 4:47 PM EDT [facility] Blood Venous blood specimen / Unknown Venipuncture / Unknown 11/20/2024 3:26 PM EDT 11/20/2024 3:43 PM EDT Narrative [facility] - 11/20/2024 4:47 PM EDT OPTIMAL INR RANGES FOR PATIENT ON ORAL ANTICOAGULANT THERAPY Prevention of venous thromboembolism INR 2.0 to 3.0 In patients with heart disease: Atrial fibrillation INR 2.0 to 3.0 Valvular heart disease INR 2.0 to 3.0 Tissue heart valves INR 2.0 to 3.0 Mechanical prosthetic valves INR 2.5 to 3.5 Prevention of recurrent TN INR 2.5 to 3.5 Arlette Soliman MD LAB BLOOD ORDERABLES Final Result Performing Organization Address City/[facility]/ZIP Co de Phone Number [facility] [address] [place] [address] * TSH (11/20/2024 2:28 PM EDT) Thyroid Stimulating Hormone, Plasma 3.30 0.40 - 4.20 uIU/mL 11/20/2024 3:08 PM EDT [facility] Blood Venous blood specimen / Unknown Venipuncture / Unknown 11/20/2024 2:28 PM EDT 11/20/2024 2:29 PM EDT Everette Colon MD LAB BLOOD ORDERABLES Final Result [facility] [address] [place] [address] * (ABNORMAL) Hemoglobin A1c (11/20/2024 2:28 PM EDT) Hemoglobin A1c 8.7(H) <5.7 % 11/21/2024 8:15 PM EDT [facility] Blood Venous blood specimen / Unknown Venipuncture / Unknown 11/20/2024 2:28 PM EDT 11/20/2024 2:37 PM EDT Narrative [facility] - 11/21/2024 8:15 PM EDT HA1C Interpretive Data: Diagnosis of Diabetes: Diabetic > or = 6.5% Pre-diabetic 5.7 to 6.4% Non-diabetic < or = 5.6% Glycemic Targets for Type I and Type II Diabetics: Non- Adults <7.0% Adults <6.0% Children and Adolescents <7.5% Source: [place] [employer]. Standards of medical care in diabetes,2017. Diabetes Care.2017:40 (suppl 1):S1-S135. Everette Colon MD LAB BLOOD ORDERABLES Final Result Performing Organization Address City/[facility]/ZIP Co de Phone Number [facility] [address] [place] [address] * (ABNORMAL) Troponin now and 120 min (11/20/2024 1:39 PM EDT) Troponin T, High Sensitivity, 0 Hour 105(H) <14 ng/L 11/20/2024 2:08 PM EDT [facility] Blood Venous blood specimen / Unknown Venipuncture / Unknown 11/20/2024 1:39 PM EDT 11/20/2024 1:45 PM EDT Arlette Soliman MD LAB BLOOD ORDERABLES Final Result Performing Organization Address City/[facility]/ZIP Co de Phone Number [facility] [address] [place] [address] * Test Qualitative Plasma (11/20/2024 1:39 PM EDT) Test Negative Negative 11/20/2024 2:08 PM EDT [facility] Blood Venous blood specimen / Unknown Venipuncture / Unknown 11/20/2024 1:39 PM EDT 11/20/2024 1:45 PM EDT Narrative [facility] - 11/20/2024 2:08 PM EDT Reference Range: Males and non- females: Negative. us Arlette Soliman MD LAB BLOOD ORDERABLES Final Result [facility] [address] [place] [address] * (ABNORMAL) Comprehensive Metabolic Panel (11/20/2024 1:39 PM EDT) Glucose, Plasma 173(H) 74 - 99 mg/dL 11/20/2024 2:08 PM EDT [facility] BUN, Plasma 25(H) 8 - 23 mg/dL 11/20/2024 2:08 PM EDT [facility] Creatinine, Plasma 0.91 0.60 - 1.10 mg/dL 11/20/2024 2:08 PM EDT [facility] BUN/Creatinine Ratio 27 11/20/2024 2:08 PM EDT [facility] Sodium, Plasma 134(L) 136 - 145 mmol/L 11/20/2024 2:08 PM EDT [facility] Potassium, Plasma 3.9 3.6 - 4.9 mmol/L 11/20/2024 2:08 PM EDT [facility] Chloride, Plasma 93(L) 97 - 107 mmol/L 11/20/2024 2:08 PM EDT [facility] CO2, Plasma 28 22 - 29 mmol/L 11/20/2024 2:08 PM EDT [facility] Anion Gap 13 6 - 16 mmol/L 11/20/2024 2:08 PM EDT [facility] Total Calcium, Plasma 8.7(L) 8.9 - 10.2 mg/dL 11/20/2024 2:08 PM EDT [facility] Total Protein 6.7 6.3 - 7.9 g/dL 11/20/2024 2:08 PM EDT [facility] Albumin, Plasma 3.0(L) 3.5 - 5.2 g/dL 11/20/2024 2:08 PM EDT [facility] AST, Plasma 36(H) 10 - 35 U/L 11/20/2024 2:08 PM EDT [facility] ALT, Plasma 22 10 - 35 U/L 11/20/2024 2:08 PM EDT [facility] Alkaline Phosphatase, Plasma 131 46 - 142 U/L 11/20/2024 2:08 PM EDT [facility] Total Bilirubin, Plasma 0.4 0.2 - 1.1 mg/dL 11/20/2024 2:08 PM EDT [facility] eGFRcr 66.8 mL/min/1.7 3m*2 11/20/2024 2:08 PM EDT [facility] Comment:Reported eGFRcr in m L/min/1.73m2 is based the CKD-EPI 2020 equation that does not use a race coefficient. Blood Venous blood specimen / Unknown Venipuncture / Unknown 11/20/2024 1:39 PM EDT 11/20/2024 1:45 PM EDT us Arlette Soliman MD LAB BLOOD ORDERABLES Final Result [facility] [address] [place] [address] * (ABNORMAL) CBC with Diff (11/20/2024 1:39 PM EDT) WBC Count 7.31 3.70 - 10.30 10*3/uL LAB HEMATOLOGY METHOD 11/20/2024 1:48 PM EDT [facility] RBC Count 3.43(L) 3.90 - 5.20 10*6/uL LAB HEMATOLOGY METHOD 11/20/2024 1:48 PM EDT [facility] HGB 10.7(L) 11.2 - 15.7 g/dL LAB HEMATOLOGY METHOD 11/20/2024 1:48 PM EDT [facility] HCT 32.3(L) 34.0 - 45.0 % LAB HEMATOLOGY METHOD 11/20/2024 1:48 PM EDT [facility] Platelet Count 289 155 - 369 10*3/uL LAB HEMATOLOGY METHOD 11/20/2024 1:48 PM EDT [facility] MCV 94 79 - 98 fL LAB HEMATOLOGY METHOD 11/20/2024 1:48 PM EDT [facility] MCH 31.2 26.0 - 32.0 pg LAB HEMATOLOGY METHOD 11/20/2024 1:48 PM EDT [facility] MCHC 33.1 30.7 - 35.5 g/dL LAB HEMATOLOGY METHOD 11/20/2024 1:48 PM EDT [facility] RDW 14.9(H) 11.5 - 14.5 % LAB HEMATOLOGY METHOD 11/20/2024 1:48 PM EDT [facility] MPV 9.4 8.8 - 12.5 fL LAB HEMATOLOGY METHOD 11/20/2024 1:48 PM EDT [facility] nRBC 0.0 <=0.0 per 100 WBCs LAB HEMATOLOGY METHOD 11/20/2024 1:48 PM EDT [facility] Differential Type Automated LAB HEMATOLOGY METHOD 11/20/2024 1:48 PM EDT [facility] Neutrophils % 67 % LAB HEMATOLOGY METHOD 11/20/2024 1:48 PM EDT [facility] Lymphocytes % 19 % LAB HEMATOLOGY METHOD 11/20/2024 1:48 PM EDT [facility] Monocytes % 11 % LAB HEMATOLOGY METHOD 11/20/2024 1:48 PM EDT [facility] Eosinophils % 1 % LAB HEMATOLOGY METHOD 11/20/2024 1:48 PM EDT [facility] Basophils % 1 % LAB HEMATOLOGY METHOD 11/20/2024 1:48 PM EDT [facility] Immature Granulocytes % 1 % LAB HEMATOLOGY METHOD 11/20/2024 1:48 PM EDT [facility] Neutrophils Absolute 4.96 1.60 - 6.10 10*3/uL LAB HEMATOLOGY METHOD 11/20/2024 1:48 PM EDT [facility] Lymphocytes Absolute 1.37 1.20 - 3.90 10*3/uL LAB HEMATOLOGY METHOD 11/20/2024 1:48 PM EDT [facility] Monocytes Absolute 0.79 0.30 - 0.90 10*3/uL LAB HEMATOLOGY METHOD 11/20/2024 1:48 PM EDT [facility] Eosinophils Absolute 0.10 0.00 - 0.50 10*3/uL LAB HEMATOLOGY METHOD 11/20/2024 1:48 PM EDT [facility] Basophils Absolute 0.05 0.00 - 0.10 10*3/uL LAB HEMATOLOGY METHOD 11/20/2024 1:48 PM EDT [facility] Immature Granulocytes Absolute 0.04 0.00 - 0.06 10*3/uL LAB HEMATOLOGY METHOD 11/20/2024 1:48 PM EDT [facility] Blood Venous blood specimen / Unknown Venipuncture / Unknown 11/20/2024 1:39 PM EDT 11/20/2024 1:45 PM EDT Narrative [facility] - 11/20/2024 1:48 PM EDT Therapeutic decision making should be based on absolute values, rather than percentages. Arlette Soliman MD LAB BLOOD ORDERABLES Final Result Performing Organization Address City/[facility]/ZIP Co de Phone Number [facility] [address] [place] [address] * ECG Adult (11/20/2024 1:25 PM EDT) EKG DIAGNOSIS CLASS Abnormal MUSE ECG Ventricular Rate 60 BPM MUSE ECG Atrial Rate 202 BPM MUSE ECG QRSD Interval 188 ms MUSE ECG QT Interval 554 ms MUSE ECG QTC Interval 554 ms MUSE ECG R [place] -82 degrees MUSE ECG T Wave [place] 117 degrees MUSE ECG Diagnosis Ventricular-p aced rhythm MUSE ECG Diagnosis Abnormal ECG MUSE ECG Diagnosis MUSE ECG Diagnosis Confirmed by Jaime Carlton ([id number]) on 11/21/2024 10:10:23 AM MUSE ECG 11/20/2024 1:25 PM EDT 11/21/2024 10:10 AM EDT Arlette Soliman MD ECG ORDERABLES Final Resul t Performing Organization Address City/[facility] Co de Phone Number MUSE ECG * CT Angio Neck (11/20/2024 1:13 PM EDT) Anatomical Region Laterality Modality Carotid Artery Computed Tomogra phy Impressions 11/20/2024 2:12 PM EDT 1. Thready nonopacified appearance of the left cervical and intradural vertebral artery which is favored to be related to chronic dissection or developmentally hypoplastic. 2. Otherwise, no intracranial proximal large vessel occlusion. 3. Moderate left subclavian artery origin stenosis. 4. No high-grade stenosis is present within the visualized cervical carotid arteries. 5. Severe left and moderate right intracranial ICA stenosis and mild right intradural vertebral artery stenosis secondary to atherosclerosis. 6. Degenerative cervical sclerosis and ankylosis in the spine, erosive changes within the bilateral temporomandibular joint with capsular calcifications in the right TMJ and near the craniocervical junction. These findings could be seen in the setting of rheumatoid arthritis. 7. Moderate right and small left pleural effusion with groundglass opacities. Recommend dedicated chest imaging for further evaluation. CRITICAL RESULT: No. COMMUNICATION: Per this written report. Drafted by Sonam Rivas on 11/20/2024 1:46 PM Final report signed by Sonam Rivas on 11/20/2024 2:12 PM Narrative 11/20/2024 2:12 PM EDT CLINICAL INDICATION: Neuro deficit, acute, stroke suspected TECHNIQUE: Head CTA: Axial images were obtained through the head during contrast bolus injection and multiplanar MIP images were created. Multiphase CTA was performed. This study was analyzed with deep machine learning artificial intelligence for large vessel occlusion detection. Neck CTA: Axial images were obtained through the neck during bolus contrast injection and multiplanar reformatted and MIP images were created. 100 mL of Omnipaque 350 were administered intravenously. Total DLP (Dose-Length Product): 1788.14 mGy.cm (accession [id number]), 1788.14 mGy.cm (accession [id number]). Please note: The reported value represents the total of one or more individual components during the CT acquisition on this date and at this time, and as such, the same value may appear in more than one CT report depending on the interpreting/reporting physicians. COMPARISON: None. FINDINGS: Neck CTA: Diagnostic Quality: Adequate Aorta and Great Vessel Origins: The aortic arch has a normal branching pattern. Moderate stenosis at the origin of the left subclavian artery related to atherosclerosis. Tortuous course of the innominate artery and proximal right common carotid artery. Right Cervical Carotid System: The right common carotid artery and its origin are patent. There is moderate atherosclerotic plaque at the carotid bifurcation. There is a 25% stenosis at the bifurcation by NASCET criteria. The right internal carotid artery demonstrates a tortuous course in the cervical region. There is no evidence of dissection or pseudoaneurysm of the right common and internal carotid arteries. Left Cervical Carotid System: The left common carotid artery and its origin are patent. There is moderate atherosclerotic plaque at the carotid bifurcation. There is a less than 20% stenosis at the bifurcation by NASCET criteria. The left internal carotid artery demonstrates a tortuous course in the cervical region. There is no evidence of dissection or pseudoaneurysm of the left common and internal carotid arteries. Vertebral arteries: The origin of the right vertebral artery is patent. The right vertebral artery is dominant. The origin of the left vertebral artery is not well evaluated secondary to hyperdense contrast refluxing in the adjacent veins. The left vertebral artery is small in caliber along its course when it is visualized at the C3-C4 level where it becomes irregular until it extends intracranially. No evidence of dissection or pseudoaneurysm within the right vertebral artery. Other Findings: Moderate right and small left pleural effusion. Groundglass opacities in the right lung apex. Sclerosis and multilevel ankylosis within the visualized cervicothoracic spine. Head CTA: Diagnostic Quality: Adequate Vertebrobasilar System: The left intradural vertebral vertebral artery is small in caliber and nonopacified with areas of suspected atherosclerosis. The right intradural vertebral artery demonstrates dense atherosclerosis with mild stenosis though remains patent and is dominant. The left PICA is not well visualized related to artifact. The basilar artery and its major branches are within normal limits. There is no aneurysm. Carotid Arteries: Right ICA: There is atherosclerotic plaque with moderate stenosis. Left ICA: There is atherosclerotic plaque with severe stenosis throughout the distal cavernous and left paraclinoid segment. Other Findings: There is no aneurysm of either internal carotid artery. The bilateral carotid termini are well opacified and normal in caliber. [place] and Major Peripheral Branches: There is no significant stenosis or occlusion. There is no aneurysm. contribution to the left [employer]. Other Findings: None. Procedure Note Sonam Rivas MD - 11/20/2024 CLINICAL INDICATION: Neuro deficit, acute, stroke suspected TECHNIQUE: Head CTA: Axial images were obtained through the head during contrastbolus injection and multiplanar MIP images were created. Multiphase CTAwas performed. This study was analyzed with deep machine learningartificial intelligence for large vessel occlusion detection. Neck CTA: Axial images were obtained through the neck during boluscontrast injection and multiplanar reformatted and MIP images werecreated. 100 mL of Omnipaque 350 were administered intravenously. Total DLP (Dose-Length Product): 1788.14 mGy.cm (accession [id number]),1788.14 mGy.cm (accession [id number]). Please note: The reported valuerepresents the total of one or more individual components during the CTacquisition on this date and at this time, and as such, the same value mayappear in more than one CT report depending on the interpreting/reportingphysicians. COMPARISON: None. FINDINGS: Neck CTA: Diagnostic Quality: Adequate Aorta and Great Vessel Origins: The aortic arch has a normal branchingpattern. Moderate stenosis at the origin of the left subclavian arteryrelated to atherosclerosis. Tortuous course of the innominate artery andproximal right common carotid artery. Right Cervical Carotid System: The right common carotid artery and itsorigin are patent. There is moderate atherosclerotic plaque at the carotidbifurcation. There is a 25% stenosis at the bifurcation by NASCETcriteria. The right internal carotid artery demonstrates a tortuous coursein the cervical region. There is no evidence of dissection orpseudoaneurysm of the right common and internal carotid arteries. Left Cervical Carotid System: The left common carotid artery and itsorigin are patent. There is moderate atherosclerotic plaque at the carotidbifurcation. There is a less than 20% stenosis at the bifurcation byNASCET criteria. The left internal carotid artery demonstrates a tortuouscourse in the cervical region. There is no evidence of dissection orpseudoaneurysm of the left common and internal carotid arteries. Vertebral arteries: The origin of the right vertebral artery is patent.The right vertebral artery is dominant. The origin of the left vertebralartery is not well evaluated secondary to hyperdense contrast refluxing inthe adjacent veins. The left vertebral artery is small in caliber alongits course when it is visualized at the C3-C4 level where it becomesirregular until it extends intracranially. No evidence of dissection orpseudoaneurysm within the right vertebral artery. Other Findings: Moderate right and small left pleural effusion.Groundglass opacities in the right lung apex. Sclerosis and multilevelankylosis within the visualized cervicothoracic spine. Head CTA: Diagnostic Quality: Adequate Vertebrobasilar System: The left intradural vertebral vertebral artery issmall in caliber and nonopacified with areas of suspected atherosclerosis.The right intradural vertebral artery demonstrates dense atherosclerosiswith mild stenosis though remains patent and is dominant. The left PICA isnot well visualized related to artifact. The basilar artery and its majorbranches are within normal limits. There is no aneurysm. Carotid Arteries: Right ICA: There is atherosclerotic plaque with moderate stenosis. Left ICA: There is atherosclerotic plaque with severe stenosis throughoutthe distal cavernous and left paraclinoid segment. Other Findings: There is no aneurysm of either internal carotid artery.The bilateral carotid termini are well opacified and normal in caliber. [place] and Major Peripheral Branches: There is no significantstenosis or occlusion. There is no aneurysm. contribution to theleft [employer]. Other Findings: None. IMPRESSION: 1.Thready nonopacified appearance of the left cervical and intraduralvertebral artery which is favored to be related to chronic dissection ordevelopmentally hypoplastic. 2.Otherwise, no intracranial proximal large vessel occlusion. 3.Moderate left subclavian artery origin stenosis. 4.No high-grade stenosis is present within the visualized cervicalcarotid arteries. 5.Severe left and moderate right intracranial ICA stenosis and mild rightintradural vertebral artery stenosis secondary to atherosclerosis. 6.Degenerative cervical sclerosis and ankylosis in the spine, erosivechanges within the bilateral temporomandibular joint with capsularcalcifications in the right TMJ and near the craniocervical junction.These findings could be seen in the setting of rheumatoid arthritis. 7.Moderate right and small left pleural effusion with groundglassopacities. Recommend dedicated chest imaging for further evaluation. CRITICAL RESULT: No. COMMUNICATION: Per this written report. Drafted by Sonam Rivas on 11/20/2024 1:46 PM Final report signed by Sonam Rivas on 11/20/2024 2:12 PM us Arlette Soliman MD IMG CT PROCEDURES Final Res ult * CT Angio Head (11/20/2024 1:13 PM EDT) Anatomical Region Laterality Modality [place] Computed Tomogr aphy Impressions 11/20/2024 2:12 PM EDT 1. Thready nonopacified appearance of the left cervical and intradural vertebral artery which is favored to be related to chronic dissection or developmentally hypoplastic. 2. Otherwise, no intracranial proximal large vessel occlusion. 3. Moderate left subclavian artery origin stenosis. 4. No high-grade stenosis is present within the visualized cervical carotid arteries. 5. Severe left and moderate right intracranial ICA stenosis and mild right intradural vertebral artery stenosis secondary to atherosclerosis. 6. Degenerative cervical sclerosis and ankylosis in the spine, erosive changes within the bilateral temporomandibular joint with capsular calcifications in the right TMJ and near the craniocervical junction. These findings could be seen in the setting of rheumatoid arthritis. 7. Moderate right and small left pleural effusion with groundglass opacities. Recommend dedicated chest imaging for further evaluation. CRITICAL RESULT: No. COMMUNICATION: Per this written report. Drafted by Sonam Rivas on 11/20/2024 1:46 PM Final report signed by Sonam Rivas on 11/20/2024 2:12 PM Narrative 11/20/2024 2:12 PM EDT CLINICAL INDICATION: Neuro deficit, acute, stroke suspected TECHNIQUE: Head CTA: Axial images were obtained through the head during contrast bolus injection and multiplanar MIP images were created. Multiphase CTA was performed. This study was analyzed with deep machine learning artificial intelligence for large vessel occlusion detection. Neck CTA: Axial images were obtained through the neck during bolus contrast injection and multiplanar reformatted and MIP images were created. 100 mL of Omnipaque 350 were administered intravenously. Total DLP (Dose-Length Product): 1788.14 mGy.cm (accession [id number]), 1788.14 mGy.cm (accession [id number]). Please note: The reported value represents the total of one or more individual components during the CT acquisition on this date and at this time, and as such, the same value may appear in more than one CT report depending on the interpreting/reporting physicians. COMPARISON: None. FINDINGS: Neck CTA: Diagnostic Quality: Adequate Aorta and Great Vessel Origins: The aortic arch has a normal branching pattern. Moderate stenosis at the origin of the left subclavian artery related to atherosclerosis. Tortuous course of the innominate artery and proximal right common carotid artery. Right Cervical Carotid System: The right common carotid artery and its origin are patent. There is moderate atherosclerotic plaque at the carotid bifurcation. There is a 25% stenosis at the bifurcation by NASCET criteria. The right internal carotid artery demonstrates a tortuous course in the cervical region. There is no evidence of dissection or pseudoaneurysm of the right common and internal carotid arteries. Left Cervical Carotid System: The left common carotid artery and its origin are patent. There is moderate atherosclerotic plaque at the carotid bifurcation. There is a less than 20% stenosis at the bifurcation by NASCET criteria. The left internal carotid artery demonstrates a tortuous course in the cervical region. There is no evidence of dissection or pseudoaneurysm of the left common and internal carotid arteries. Vertebral arteries: The origin of the right vertebral artery is patent. The right vertebral artery is dominant. The origin of the left vertebral artery is not well evaluated secondary to hyperdense contrast refluxing in the adjacent veins. The left vertebral artery is small in caliber along its course when it is visualized at the C3-C4 level where it becomes irregular until it extends intracranially. No evidence of dissection or pseudoaneurysm within the right vertebral artery. Other Findings: Moderate right and small left pleural effusion. Groundglass opacities in the right lung apex. Sclerosis and multilevel ankylosis within the visualized cervicothoracic spine. Head CTA: Diagnostic Quality: Adequate Vertebrobasilar System: The left intradural vertebral vertebral artery is small in caliber and nonopacified with areas of suspected atherosclerosis. The right intradural vertebral artery demonstrates dense atherosclerosis with mild stenosis though remains patent and is dominant. The left PICA is not well visualized related to artifact. The basilar artery and its major branches are within normal limits. There is no aneurysm. Carotid Arteries: Right ICA: There is atherosclerotic plaque with moderate stenosis. Left ICA: There is atherosclerotic plaque with severe stenosis throughout the distal cavernous and left paraclinoid segment. Other Findings: There is no aneurysm of either internal carotid artery. The bilateral carotid termini are well opacified and normal in caliber. [place] and Major Peripheral Branches: There is no significant stenosis or occlusion. There is no aneurysm. contribution to the left [employer]. Other Findings: None. Procedure Note Sonam Rivas MD - 11/20/2024 CLINICAL INDICATION: Neuro deficit, acute, stroke suspected TECHNIQUE: Head CTA: Axial images were obtained through the head during contrastbolus injection and multiplanar MIP images were created. Multiphase CTAwas performed. This study was analyzed with deep machine learningartificial intelligence for large vessel occlusion detection. Neck CTA: Axial images were obtained through the neck during boluscontrast injection and multiplanar reformatted and MIP images werecreated. 100 mL of Omnipaque 350 were administered intravenously. Total DLP (Dose-Length Product): 1788.14 mGy.cm (accession [id number]),1788.14 mGy.cm (accession [id number]). Please note: The reported valuerepresents the total of one or more individual components during the CTacquisition on this date and at this time, and as such, the same value mayappear in more than one CT report depending on the interpreting/reportingphysicians. COMPARISON: None. FINDINGS: Neck CTA: Diagnostic Quality: Adequate Aorta and Great Vessel Origins: The aortic arch has a normal branchingpattern. Moderate stenosis at the origin of the left subclavian arteryrelated to atherosclerosis. Tortuous course of the innominate artery andproximal right common carotid artery. Right Cervical Carotid System: The right common carotid artery and itsorigin are patent. There is moderate atherosclerotic plaque at the carotidbifurcation. There is a 25% stenosis at the bifurcation by NASCETcriteria. The right internal carotid artery demonstrates a tortuous coursein the cervical region. There is no evidence of dissection orpseudoaneurysm of the right common and internal carotid arteries. Left Cervical Carotid System: The left common carotid artery and itsorigin are patent. There is moderate atherosclerotic plaque at the carotidbifurcation. There is a less than 20% stenosis at the bifurcation byNASCET criteria. The left internal carotid artery demonstrates a tortuouscourse in the cervical region. There is no evidence of dissection orpseudoaneurysm of the left common and internal carotid arteries. Vertebral arteries: The origin of the right vertebral artery is patent.The right vertebral artery is dominant. The origin of the left vertebralartery is not well evaluated secondary to hyperdense contrast refluxing inthe adjacent veins. The left vertebral artery is small in caliber alongits course when it is visualized at the C3-C4 level where it becomesirregular until it extends intracranially. No evidence of dissection orpseudoaneurysm within the right vertebral artery. Other Findings: Moderate right and small left pleural effusion.Groundglass opacities in the right lung apex. Sclerosis and multilevelankylosis within the visualized cervicothoracic spine. Head CTA: Diagnostic Quality: Adequate Vertebrobasilar System: The left intradural vertebral vertebral artery issmall in caliber and nonopacified with areas of suspected atherosclerosis.The right intradural vertebral artery demonstrates dense atherosclerosiswith mild stenosis though remains patent and is dominant. The left PICA isnot well visualized related to artifact. The basilar artery and its majorbranches are within normal limits. There is no aneurysm. Carotid Arteries: Right ICA: There is atherosclerotic plaque with moderate stenosis. Left ICA: There is atherosclerotic plaque with severe stenosis throughoutthe distal cavernous and left paraclinoid segment. Other Findings: There is no aneurysm of either internal carotid artery.The bilateral carotid termini are well opacified and normal in caliber. [place] and Major Peripheral Branches: There is no significantstenosis or occlusion. There is no aneurysm. contribution to theleft [employer]. Other Findings: None. IMPRESSION: 1.Thready nonopacified appearance of the left cervical and intraduralvertebral artery which is favored to be related to chronic dissection ordevelopmentally hypoplastic. 2.Otherwise, no intracranial proximal large vessel occlusion. 3.Moderate left subclavian artery origin stenosis. 4.No high-grade stenosis is present within the visualized cervicalcarotid arteries. 5.Severe left and moderate right intracranial ICA stenosis and mild rightintradural vertebral artery stenosis secondary to atherosclerosis. 6.Degenerative cervical sclerosis and ankylosis in the spine, erosivechanges within the bilateral temporomandibular joint with capsularcalcifications in the right TMJ and near the craniocervical junction.These findings could be seen in the setting of rheumatoid arthritis. 7.Moderate right and small left pleural effusion with groundglassopacities. Recommend dedicated chest imaging for further evaluation. CRITICAL RESULT: No. COMMUNICATION: Per this written report. Drafted by Sonam Rivas on 11/20/2024 1:46 PM Final report signed by Sonam Rivas on 11/20/2024 2:12 PM us Arlette Soliman MD IMG CT PROCEDURES Final Res ult * CT Head wo IV contrast (11/20/2024 1:09 PM EDT) Anatomical Region Laterality Modality Head Computed Tomogra phy Impressions 11/20/2024 1:23 PM EDT 1. No visible acute intracranial abnormality. 2. 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 CRITICAL RESULT: No. COMMUNICATION: Per this written report. Drafted by Sonam Rivas on 11/20/2024 1:13 PM Final report signed by Sonam Rivas on 11/20/2024 1:23 PM Narrative 11/20/2024 1:23 PM EDT CLINICAL INDICATION: Neuro deficit, acute, stroke suspected TECHNIQUE: Spiral axial CT images of the head were obtained without contrast administration. Total DLP (Dose-Length Product): 730.5 mGy*cm. Please note: The reported value represents the total of one or more individual components during the CT acquisition on this date and at this time, and as such, the same value may appear in more than one CT report depending on the interpreting/reporting physicians. COMPARISON: None. FINDINGS: Diagnostic Quality: Adequate. Portions of the brainstem and posterior fossa are not well evaluated secondary to streak artifact from dental amalgam. There is age-appropriate volume loss with prominence of the ventricles and sulci. Basilar cisterns are preserved. There is no acute large cortical infarct, intracranial hemorrhage or large mass on this noncontrast study. There is a mild amount of non-specific but likely ischemic white matter lesions. Soft Tissues: No significant soft tissue swelling is present. Advanced osteoarthritis of the bilateral temporomandibular joints with erosive changes. Joint calcifications likely of the synovium on the right with remodeling of the bilateral glenoid fossa. Skull: There are no calvarial destructive lesions or fractures. Sinuses and Mastoids: The visualized portions of the paranasal sinuses are clear. The mastoid air cells are clear. Procedure Note Sonam Rivas MD - 11/20/2024 CLINICAL INDICATION: Neuro deficit, acute, stroke suspected TECHNIQUE: Spiral axial CT images of the head were obtained without contrastadministration. Total DLP (Dose-Length Product): 730.5 mGy*cm. Please note: The reportedvalue represents the total of one or more individual components during theCT acquisition on this date and at this time, and as such, the same valuemay appear in more than one CT report depending on theinterpreting/reporting physicians. COMPARISON: None. FINDINGS: Diagnostic Quality: Adequate. Portions of the brainstem and posteriorfossa are not well evaluated secondary to streak artifact from dentalamalgam. There is age-appropriate volume loss with prominence of the ventricles andsulci. Basilar cisterns are preserved. There is no acute large cortical infarct, intracranial hemorrhage or largemass on this noncontrast study. There is a mild amount of non-specific butlikely ischemic white matter lesions. Soft Tissues: No significant soft tissue swelling is present. Advancedosteoarthritis of the bilateral temporomandibular joints with erosivechanges. Joint calcifications likely of the synovium on the right withremodeling of the bilateral glenoid fossa. Skull: There are no calvarial destructive lesions or fractures. Sinuses and Mastoids: The visualized portions of the paranasal sinuses areclear. The mastoid air cells are clear. IMPRESSION: 1.No visible acute intracranial abnormality. 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 CRITICAL RESULT: No. COMMUNICATION: Per this written report. Drafted by Sonam Rivas on 11/20/2024 1:13 PM Final report signed by Sonam Rivas on 11/20/2024 1:23 PM us Arlette Soliman MD IMG CT PROCEDURES Final Res ult * (ABNORMAL) POCT glucose meter (11/20/2024 1:01 PM EDT) POCT Glucose 179(H) 74 - 99 mg/dL 11/20/2024 1:02 PM EDT [facility] Comment:Accuracy [...] to the main labortory for testing. Comment 11/20/2024 1:02 PM EDT [facility] Vp Genetic ID Darshana Beltran 11/21/19 25 1:02 PM EDT [facility] Device ID [id number] 11/20/2024 1:02 PM EDT [facility] Specimen Type POC Capillary 11/20/2024 1:02 PM EDT [facility] Blood Capillary blood specimen / Unknown 11/20/2024 1:01 PM EDT 11/20/2024 1:02 PM EDT us Generic Provider Poct LAB POINT OF CARE TEST DOCKED DEVICE UNSOLICITED RESULTS Final Result [facility] [address] [place] [address] documented in this encounter Visit Diagnoses Diagnosis Cerebrovascular accident (CVA) (CMS/HCC)- Primary Cerebrovascular accident (CVA), unspecified mechanism (CMS/HCC) Cerebrovascular accident (CVA) due to embolism of right posterior cerebral artery Severe protein-calorie malnutrition (CMS/HCC) Other severe protein-calorie malnutrition documented in this encounter Admitting Diagnoses Diagnosis Acute ischemic stroke (CMS/HCC) Unspecified cerebral artery occlusion with cerebral infarction documented in this encounter Administered Medications Inactive Administered Medications - up to 3 most recent administrations Medication Order MAR Action Action Date Dose Rate Site acetaminophen (Tylenol) tablet 1,000 mg 1,000 mg, Oral, Every 6 hours PRN, Starting on Fri11/24/24 at 1520, Until Fri11/29/24 at 1833, Routine, moderate pain, mild pain Given 11/24/2024 3:39 PM EDT 1,000 mg acetaminophen (Tylenol) tablet 650 mg 650 mg, Oral, Once, 1 dose, On Fri11/24/24 at 0645, Routine Given 11/24/2024 5:59 AM EDT 650 mg acetylcysteine (Mucomyst) 20 % solution 4 mL 4 mL, Nebulization, Every 6 hours scheduled, First dose on Fri11/21/24 at 1815, Until Discontinued, Routine Given 11/23/2024 9:08 AM EDT 4 mL Given 11/23/2024 3:08 AM EDT 4 mL Given 11/22/2024 8:11 PM EDT 4 mL acetylcysteine (Mucomyst) 20 % solution 4 mL 4 mL, Nebulization, 2 times daily, First dose (after last modification) on Fri11/23/24 at 2100, Until Discontinued, Routine Given 11/23/2024 8:37 PM EDT 4 mL albuterol (Proventil) (2.5 MG/3ML) 0.083% nebulizer solution 2.5 mg 2.5 mg, Nebulization, Every 6 hours, First dose (after last reorder) on Fri11/22/24 at 0045, Until Discontinued, Routine Given 11/24/2024 3:29 PM EDT 2.5 mg Given 11/24/2024 8:31 AM EDT 2.5 mg Given 11/24/2024 3:49 AM EDT 2.5 mg albuterol (Proventil) (2.5 MG/3ML) 0.083% nebulizer solution 2.5 mg 2.5 mg, Nebulization, Every 6 hours PRN, Starting on Fri11/22/24 at 0022, Until Fri11/29/24 at 1833, Routine, wheezing Given 11/29/2024 10:01 AM EDT 2.5 mg Given 11/28/2024 11:23 PM EDT 2.5 mg Given 11/28/2024 6:14 PM EDT 2.5 mg albuterol (Proventil) (2.5 MG/3ML) 0.083% nebulizer solution 2.5 mg 2.5 mg, Nebulization, 2 times daily, First dose (after last modification) on Fri11/24/24 at 2100, Until Discontinued, Routine Given 11/26/2024 9:20 AM EDT 2.5 mg Given 11/25/2024 8:20 PM EDT 2.5 mg Given 11/25/2024 8:27 AM EDT 2.5 mg aspirin suppository 300 mg 300 mg, Rectal, Daily, First dose on 11/21/24 at 2030, Until Discontinued, Routine Given 11/21/2024 8:19 PM EDT 300 mg atorvastatin (Lipitor) tablet 40 mg 40 mg, Nasogastric, Nightly, First dose on 11/20/24 at 2100, Until Discontinued, Routine Given 11/23/2024 9:15 PM EDT 40 mg Given 11/22/2024 8:27 PM EDT 40 mg atorvastatin (Lipitor) tablet 40 mg 40 mg, Oral, Nightly, First dose (after last modification) on Fri11/24/24 at 2100, Until Discontinued, Routine Given 11/28/2024 9:04 PM EDT 40 mg Given 11/27/2024 8:11 PM EDT 40 mg Given 11/26/2024 8:19 PM EDT 40 mg barium sulfate (Varibar [place]) 40 % suspension 120 mL 120 mL, Oral, Once in imaging, 1 dose, Starting on Fri11/23/24 at 1318, Until Fri11/23/24 at 1325, Routine, Imaging Protocol Orders Given 11/23/2024 1:25 PM EDT 120 mL barium sulfate (Varibar Pud[place]) 40 % oral paste 15 mL 15 mL, Oral, Once in imaging, 1 dose, Starting on Fri11/23/24 at 1318, Until Fri11/23/24 at 1325, Routine, Imaging Protocol Orders Given 11/23/2024 1:25 PM EDT 15 mL barium sulfate (Varibar Thin Honey) 40 % suspension 90 mL 90 mL, Oral, Once in imaging, 1 dose, Starting on Fri11/23/24 at 1318, Until Fri11/23/24 at 1325, Routine, Imaging Protocol Orders Given 11/23/2024 1:25 PM EDT 90 mL barium sulfate (Varibar THIN Liquid) 40 % suspension 120 mL 120 mL, Oral, Once in imaging, 1 dose, Starting on Fri11/23/24 at 1318, Until Fri11/23/24 at 1325, Routine, Imaging Protocol Orders Given 11/23/2024 1:25 PM EDT 120 mL brimonidine (AlphaGAN P) 0.2 % ophthalmic solution 1 drop 1 drop, Both Eyes, Nightly, First dose on 11/21/24 at 2100, Until Discontinued, Routine Given 11/28/2024 9:16 PM EDT 1 drop Given 11/27/2024 8:13 PM EDT 1 drop Given 11/26/2024 8:19 PM EDT 1 drop bumetanide (Bumex) injection 2 mg 2 mg, Intravenous, Once, 1 dose, On [place] 11/25/24 at 1445, Routine Given 11/25/2024 3:09 PM EDT 2 mg calcium-vitamin D 500-200 MG-UNIT per tablet 1 tablet 1 tablet, Nasogastric, Daily, First dose on 11/21/24 at 1530, Until Discontinued, Routine Given 11/24/2024 8:09 AM EDT 1 tablet Given 11/23/2024 8:17 AM EDT 1 tablet Given 11/22/2024 12:14 PM EDT 1 tablet calcium-vitamin D 500-200 MG-UNIT per tablet 1 tablet 1 tablet, Oral, Daily, First dose (after last modification) on [place] 11/25/24 at 0900, Until Discontinued, Routine Given 11/29/2024 8:00 AM EDT 1 tablet Given 11/28/2024 9:28 AM EDT 1 tablet Given 11/27/2024 8:27 AM EDT 1 tablet cetirizine (ZyrTEC) tablet 10 mg 10 mg, Nasogastric, Nightly, First dose on Fri11/21/24 at 2100, Until Discontinued, Routine Given 11/23/2024 9:15 PM EDT 10 mg Given 11/22/2024 8:27 PM EDT 10 mg cetirizine (ZyrTEC) tablet 10 mg 10 mg, Oral, Nightly, First dose (after last modification) on Fri11/24/24 at 2100, Until Discontinued, Routine Given 11/28/2024 9:04 PM EDT 10 mg Given 11/27/2024 8:11 PM EDT 10 mg Given 11/26/2024 8:19 PM EDT 10 mg dextrose 10 % (D10W) bolus 125 mL 125 mL, Intravenous, Every 15 min PRN, Starting on 11/20/24 at 1732, Until 11/29/24 at 1833, Administer over 15 Minutes, Routine, low blood sugar BG 51-89 mg/dL New Bag 11/26/2024 10:04 PM EDT 125 mL 500 mL/hr dextrose 10 % (D10W) bolus 250 mL 250 mL, Intravenous, Every 15 min PRN, Starting on 11/20/24 at 1732, Until 11/29/24 at 1833, Administer over 15 Minutes, Routine, PRN low blood sugar BG =/<50 mg/dL New Bag 11/28/2024 6:30 AM EDT 250 mL 1000 mL/hr New Bag 11/28/2024 1:19 AM EDT 250 mL 1000 mL/hr DULoxetine (Cymbalta) DR capsule 80 mg 80 mg, Oral, Daily, First dose on Fri11/26/24 at 0900, Until Discontinued, Routine Given 11/29/2024 8:00 AM EDT 80 mg Given 11/28/2024 9:29 AM EDT 80 mg Given 11/27/2024 11:12 AM EDT 80 mg enoxaparin (Lovenox) syringe 30 mg 30 mg, Subcutaneous, Daily, First dose on 11/20/24 at 2130, Until Discontinued, Routine Given 11/21/2024 8:30 AM EDT 30 mg Right Lower Abdomen Given 11/20/2024 11:04 PM EDT 30 mg L eft Lower Abdomen ezetimibe (Zetia) tablet 10 mg 10 mg, Nasogastric, Daily, First dose on [place] 11/21/24 at 1530, Until Discontinued, Routine Given 11/24/2024 8:09 AM EDT 10 mg Given 11/23/2024 8:17 AM EDT 10 mg Given 11/22/2024 12:14 PM EDT 10 mg ezetimibe (Zetia) tablet 10 mg 10 mg, Oral, Daily, First dose (after last modification) on [place] 11/25/24 at 0900, Until Discontinued, Routine Given 11/29/2024 8:00 AM EDT 10 mg Given 11/28/2024 9:28 AM EDT 10 mg Given 11/27/2024 11:14 AM EDT 10 mg furosemide (Lasix) injection 40 mg 40 mg, Intravenous, Once, 1 dose, On [place] 11/21/24 at 2230, Routine Given 11/21/2024 10:11 PM EDT 40 mg furosemide (Lasix) tablet 80 mg 80 mg, Nasogastric, Daily, First dose (after last modification) on 11/22/24 at 0900, Until Discontinued, Routine Given 11/24/2024 8:09 AM EDT 80 mg Given 11/23/2024 8:17 AM EDT 80 mg Given 11/22/2024 12:14 PM EDT 80 mg furosemide (Lasix) tablet 80 mg 80 mg, Oral, Daily, First dose on Fri11/26/24 at 1115, Until Discontinued, Routine Given 11/29/2024 8:00 AM EDT 80 mg Given 11/28/2024 10:11 AM EDT 80 mg Given 11/27/2024 8:27 AM EDT 80 mg gabapentin (Neurontin) capsule 600 mg 600 mg, Nasogastric, 2 times daily, First dose on [place] 11/21/24 at 2100, Until Discontinued, Routine Given 11/24/2024 8:09 AM EDT 600 mg Given 11/23/2024 9:15 PM EDT 600 mg Given 11/23/2024 8:17 AM EDT 600 mg gabapentin (Neurontin) capsule 600 mg 600 mg, Oral, 2 times daily, First dose (after last modification) on Fri11/24/24 at 2100, Until Discontinued, Routine Given 11/29/2024 8:00 AM EDT 600 mg Given 11/28/2024 9:04 PM EDT 600 mg Given 11/28/2024 9:28 AM EDT 600 mg glucagon (human recombinant) injection 1 mg 1 mg, Intramuscular, Every 15 min PRN, Starting on 11/20/24 at 1732, Until 11/29/24 at 1833, Routine, low blood sugar per Hypoglycemia Prevention and Treatment protocol glucose (Glutose) 40 % oral gel 15-30 grams of glucose 15-30 grams of glucose, Sublingual, Every 15 min PRN, Starting on 11/20/24 at 1732, Until 11/29/24 at 1833, Routine, low blood sugar, per Hypoglycemia Prevention and Treatment protocol Given 11/26/2024 9:36 PM EDT 15 grams of glucose hydrALAZINE (Apresoline) injection 10 mg 10 mg, Intravenous, Every 1 hour PRN, Starting on 11/20/24 at 1342, Until 11/29/24 at 1833, Routine, high blood pressure, for non-TPA SBP > 220 & DBP > 110 and for tPA patient PRN SBP > 180 and DBP >105, Second-Line hydrALAZINE (Apresoline) injection 20 mg 20 mg, Intravenous, Every 1 hour PRN, Starting on 11/20/24 at 1342, Until Fri11/29/24 at 1833, Routine, high blood pressure, for non-TPA SBP > 220 & DBP > 110 and for tPA patient PRN SBP > 180 and DBP >105, Second-Line hydroxychloroquine (Plaquenil) tablet 200 mg 200 mg, Nasogastric, Nightly, First dose on Fri11/21/24 at 2100, Until Discontinued, Routine Given 11/23/2024 9:15 PM EDT 200 mg Given 11/22/2024 8:27 PM EDT 200 mg hydroxychloroquine (Plaquenil) tablet 200 mg 200 mg, Oral, Nightly, First dose (after last modification) on Fri11/24/24 at 2100, Until Discontinued, Routine Given 11/28/2024 9:04 PM EDT 200 mg Given 11/27/2024 8:13 PM EDT 200 mg Given 11/26/2024 8:19 PM EDT 200 mg insulin glargine-yfgn 100 UNIT/ML injection 5 Units 5 Units, Subcutaneous, Nightly, First dose on Fri11/24/24 at 2100, Until Discontinued, Routine Given 11/24/2024 10:14 PM EDT 5 Units Left Upper Arm (Back ) insulin glargine-yfgn 100 UNIT/ML injection 5 Units 5 Units, Subcutaneous, 2 times daily, First dose (after last modification) on [place] 11/25/24 at 2100, Until Discontinued, Routine Given 11/29/2024 9:48 AM EDT 5 Units Left Upper Arm (Back ) Given 11/28/2024 9:29 AM EDT 5 Units Ri ght Upper Arm (Back) Given 11/27/2024 8:12 PM EDT 5 Units Ri ght Upper Arm (Back) insulin lispro (Admelog) 100 units/mL injection - Correction - Resistant Dose 0-10 Units, Subcutaneous, 3 times daily with meals, First dose on Fri11/24/24 at 1230, Until Discontinued, Routine Given 11/28/2024 12:03 PM EDT 4 Units Left Upper Arm (Back ) Given 11/27/2024 5:51 PM EDT 8 Units Ri ght Upper Arm (Back) Given 11/27/2024 12:28 PM EDT 6 Units L eft Upper Arm (Back) insulin lispro (Admelog) 100 units/mL injection - Correction - Standard Dose 0-5 Units, Subcutaneous, 3 times daily with meals, First dose on 11/29/24 at 1230, Until Discontinued, Routine Given 11/29/2024 12:38 PM EDT 4 Units Right Upper Arm (Janessa k) insulin lispro (Admelog) injection - Correction - Nighttime Dose 0-3 Units, Subcutaneous, 2 times nightly (2099 & 0300), First dose on Fri11/24/24 at 2100, Until Discontinued, Routine Given 11/24/2024 10:13 PM EDT 3 Units Left Upper Arm (Back ) Insulin Lispro (Admelog, HumaLOG) 100 UNIT/ML injection 4 Units 4 Units, Subcutaneous, Daily with dinner, First dose on Fri11/29/24 at 1800, Until Discontinued, Routine Insulin Lispro (Admelog, HumaLOG) 100 UNIT/ML injection 5 Units 5 Units, Subcutaneous, 3 times daily with meals, First dose on Fri11/24/24 at 1845, Until Discontinued, Routine Given 11/28/2024 12:03 PM EDT 5 Units Left Upper Arm (Back ) Given 11/28/2024 9:29 AM EDT 5 Units Ri ght Upper Arm (Back) Given 11/27/2024 5:51 PM EDT 5 Units Le ft Upper Arm (Back) Insulin Lispro (Admelog, HumaLOG) 100 UNIT/ML injection 6 Units 6 Units, Subcutaneous, Daily with breakfast, First dose on Fri11/30/24 at 0800, Until Discontinued, Routine Insulin Lispro (Admelog, HumaLOG) 100 UNIT/ML injection 6 Units 6 Units, Subcutaneous, Daily with lunch, First dose on Fri11/29/24 at 1230, Until Discontinued, Routine insulin regular (HumuLIN R,NovoLIN R) 100 units/mL injection - Correction - Resistant Dose 0-10 Units, Subcutaneous, Every 6 hours scheduled, First dose on Fri11/22/24 at 1800, Until Discontinued, Routine Given 11/23/2024 11:42 AM EDT 8 Units Left Upper Abdomen Given 11/22/2024 11:45 PM EDT 2 Units L eft Lower Abdomen Given 11/22/2024 5:07 PM EDT 8 Units Le ft Lower Abdomen insulin regular (HumuLIN R,NovoLIN R) 100 units/mL injection - Correction - Resistant Dose 0-10 Units, Subcutaneous, Every 6 hours, First dose (after last modification) on Fri11/23/24 at 1800, Until Discontinued, Routine Given 11/24/2024 5:55 AM EDT 4 Units Right Upper Arm (Janessa k) Given 11/24/2024 12:39 AM EDT 8 Units R ight Upper Arm (Back) Given 11/23/2024 6:24 PM EDT 10 Units Le ft Upper Abdomen insulin regular (HumuLIN R,NovoLIN R) 100 units/mL injection - Correction - Standard Dose 0-5 Units, Subcutaneous, Every 6 hours scheduled, First dose on Fri11/22/24 at 1330, Until Discontinued, Routine Given 11/22/2024 12:32 PM EDT 4 Units Left Lower Abdomen iohexol (OMNIPaque) 300 MG/ML injection 100 mL 100 mL, Intravenous, Once in imaging, 1 dose, Starting on 11/24/24 at 1342, Until [place] 11/25/24 at 0335, Routine, Imaging Protocol Orders Given 11/25/2024 3:35 AM EDT 100 mL iohexol (OMNIPaque) 350 MG/ML injection 100 mL 100 mL, Intravenous, Once in imaging, 1 dose, Starting on 11/20/24 at 1310, Until 11/20/24 at 1311, Routine, Imaging Protocol Orders Given 11/20/2024 1:11 PM EDT 100 mL labetalol (Normodyne,Trandate) injection 10 mg 10 mg, Intravenous, Every 1 hour PRN, Starting on 11/20/24 at 1342, Until 11/29/24 at 1833, Routine, high blood pressure, for non-TPA SBP > 220 & DBP > 110 and for tPA patient PRN SBP > 180 and DBP >105, First-Line, HOLD for HR< 60 labetalol (Normodyne,Trandate) injection 20 mg 20 mg, Intravenous, Every 1 hour PRN, Starting on 11/20/24 at 1342, Until 11/29/24 at 1833, Routine, high blood pressure, for non-TPA SBP > 220 & DBP > 110 and for tPA patient PRN SBP > 180 and DBP >105, First-Line, HOLD for HR< 60 latanoprost (Xalatan) 0.005 % ophthalmic solution 1 drop 1 drop, Both Eyes, Nightly, First dose on 11/21/24 at 2100, Until Discontinued, Routine Given 11/28/2024 9:16 PM EDT 1 drop Given 11/27/2024 8:13 PM EDT 1 drop Given 11/26/2024 8:19 PM EDT 1 drop levothyroxine (Synthroid, Levoxyl) tablet 125 mcg 125 mcg, Nasogastric, Daily with breakfast, First dose on Fri11/22/24 at 0800, Until Discontinued, Routine Given 11/24/2024 8:09 AM EDT 125 mcg Given 11/23/2024 8:17 AM EDT 125 mcg Given 11/22/2024 12:14 PM EDT 125 mcg levothyroxine (Synthroid, Levoxyl) tablet 125 mcg 125 mcg, Oral, Daily with breakfast, First dose (after last modification) on [place] 11/25/24 at 0800, Until Discontinued, Routine Given 11/29/2024 8:01 AM EDT 125 mcg Given 11/28/2024 9:28 AM EDT 125 mcg Given 11/27/2024 8:27 AM EDT 125 mcg lidocaine (Uro-Jet) 2 % gel 1 Application Topical, Once, 1 dose, On 11/27/24 at 1330, Routine Given 11/27/2024 1:31 PM EDT 1 Application metoprolol tartrate (Lopressor) tablet 25 mg 25 mg, Nasogastric, Daily, First dose on 11/22/24 at 0900, Until Discontinued, Routine Given 11/22/2024 12:15 PM EDT 25 mg metoprolol tartrate (Lopressor) tablet 25 mg 25 mg, Nasogastric, 2 times daily, First dose (after last modification) on 11/22/24 at 2100, Until Discontinued, Routine Given 11/24/2024 8:09 AM EDT 25 mg Given 11/23/2024 9:15 PM EDT 25 mg Given 11/23/2024 8:17 AM EDT 25 mg metoprolol tartrate (Lopressor) tablet 25 mg 25 mg, Oral, 2 times daily, First dose (after last modification) on Fri11/24/24 at 2100, Until Discontinued, Routine Given 11/29/2024 8:00 AM EDT 25 mg Given 11/28/2024 9:04 PM EDT 25 mg Given 11/28/2024 9:29 AM EDT 25 mg mineral oil-hydrophilic petrolatum (Aquaphor) ointment 1 Application Topical, As needed, Starting on 11/28/24 at 1409, Until Fri11/29/24 at 1833, Routine, diaper rash mometasone-formoterol (Dulera 100) 100-5 MCG/ACT inhaler 2 puff 2 puff, Inhalation, 2 times daily, First dose on 11/21/24 at 2100, Until Discontinued Given 11/29/2024 8:02 AM EDT 2 puffs Given 11/28/2024 9:04 PM EDT 2 puffs Given 11/26/2024 9:02 AM EDT 2 puffs mycophenolate (Cellcept) 200 MG/ML suspension 1,000 mg 1,000 mg, Nasogastric, 2 times daily, First dose on [place] 11/21/24 at 2100, Until Discontinued, Routine Given 11/24/2024 8:09 AM EDT 1,000 mg Given 11/23/2024 9:52 PM EDT 1,000 mg Given 11/23/2024 8:17 AM EDT 1,000 mg mycophenolate (Cellcept) 200 MG/ML suspension 1,000 mg 1,000 mg, Oral, 2 times daily, First dose (after last modification) on Fri11/24/24 at 2100, Until Discontinued, Routine Given 11/25/2024 8:49 AM EDT 1,000 mg Given 11/24/2024 10:35 PM EDT 1,000 mg mycophenolate (Cellcept) capsule 1,000 mg 1,000 mg, Oral, 2 times daily, First dose on [facility] 11/25/24 at 2100, Until Discontinued, Routine Given 11/29/2024 8:01 AM EDT 1,000 mg Given 11/28/2024 9:04 PM EDT 1,000 mg Given 11/28/2024 9:29 AM EDT 1,000 mg perflutren lipid microspheres (Definity) injection 3.4556 mg 3.4556 mg (rounded from 3.4817 mg = 10 mcL/kg 53.4 kg), Intravenous, Once in imaging, 1 dose, Starting on [place] 11/21/24 at 1301, Until [place] 11/21/24 at 1039, Routine Given 11/21/2024 10:39 AM EDT 3.4556 mg Right Forearm piperacillin-tazobactam (Zosyn) 3.375 g in sodium chloride 0.9% 100 mL IVPB (vial adapter required) 3.375 g, Intravenous, Every 6 hours, First dose on [facility] 11/25/24 at 1200, Until Discontinued, Routine New Bag 11/25/2024 11:46 AM EDT 3.375 g 36.7 mL/hr piperacillin-tazobactam (Zosyn) 4.5 g in sodium chloride 0.9% 100 mL IVPB (vial adapter required) 4.5 g, Intravenous, Every 6 hours, 20 doses, First dose (after last modification) on [place] 11/25/24 at 1800, Last dose on Fri11/30/24 at 1200, Routine New Bag 11/29/2024 11:22 AM EDT 4.5 g 36.7 mL/hr New Bag 11/29/2024 6:19 AM EDT 4.5 g 36.7 mL/hr New Bag 11/29/2024 12:00 AM EDT 4.5 g 36.7 mL/hr potassium chloride (Klor-Con) packet 40 mEq 40 mEq, Oral, Once, 1 dose, On 11/27/24 at 0930, Routine Given 11/27/2024 10:14 AM EDT 40 mEq potassium chloride CR (Klor-Con) ER tablet 20 mEq 20 mEq, Oral, Once, 1 dose, On 11/27/24 at 0915, Routine Given 11/27/2024 8:28 AM EDT 20 mEq senna-docusate (Karyn-Colace) 8.6-50 MG per tablet 1 tablet 1 tablet, Nasogastric, 2 times daily, First dose (after last modification) on Fri11/22/24 at 2100, Until Discontinued, Routine Given 11/24/2024 8:09 AM EDT 1 tablet Given 11/23/2024 8:17 AM EDT 1 tablet Given 11/22/2024 8:27 PM EDT 1 tablet senna-docusate (Karyn-Colace) 8.6-50 MG per tablet 1 tablet 1 tablet, Oral, 2 times daily, First dose (after last modification) on Fri11/24/24 at 2100, Until Discontinued, Routine Given 11/29/2024 8:01 AM EDT 1 tablet Given 11/28/2024 9:04 PM EDT 1 tablet Given 11/26/2024 8:19 PM EDT 1 tablet sodium chloride 0.9 % flush 10 mL 10 mL, Intravenous, Every 12 hours, First dose on 11/20/24 at 1345, Until Discontinued, Routine Given 11/21/2024 1:22 PM EDT 10 mL Given 11/20/2024 11:04 PM EDT 10 mL sodium chloride 0.9 % flush 10 mL 10 mL, Intravenous, As needed, Starting on 11/20/24 at 1342, Until Fri11/29/24 at 1833, Routine, line care Tiotropium [place] Monohydrate (Spiriva Respimat) 2.5 MCG/ACT inhaler 2 puff 2 puff, Inhalation, Daily, First dose on Fri11/21/24 at 1530, Until Discontinued Given 11/29/2024 8:01 AM EDT 2 puffs Given 11/26/2024 9:02 AM EDT 2 puffs Given 11/25/2024 8:50 AM EDT 2 puffs warfarin (Coumadin) intermittent dosing 1 each Oral, See admin instructions, Starting on Fri11/29/24 at 0833, Until Fri11/29/24 at 1833, Routine warfarin (Coumadin) tablet 4 mg 4 mg, Nasogastric, Daily, First dose (after last modification) on Fri11/23/24 at 1700, Until Discontinued, Routine Given 11/23/2024 6:00 PM EDT 4 mg warfarin (Coumadin) tablet 4 mg 4 mg, Oral, Daily, First dose (after last modification) on Fri11/24/24 at 1700, Until Discontinued, Routine Given 11/28/2024 5:40 PM EDT 4 mg Given 11/27/2024 5:52 PM EDT 4 mg Given 11/26/2024 5:31 PM EDT 4 mg warfarin (Coumadin) tablet 5 mg 5 mg, Nasogastric, User specified (Once per day on Friday), First dose on Fri11/21/24 at 1700, Until Discontinued, Routine Given 11/22/2024 4:22 PM EDT 5 mg documented in this encounter Active and Recently Administered Medications Times are shown in EDT. Scheduled Medication Order 11/27/2024 11/28/2024 11/29/2024 atorvastatin (Lipitor) tablet 40 mg 40 mg, Oral, Nightly, First dose (after last modification) on Fri11/24/24 at 2100, Until Discontinued, Routine 2010 (Given - Provider: Temitope Pearl) 2103 (Given - Provider: Lavern Coronado) brimonidine (AlphaGAN P) 0.2 % ophthalmic solution 1 drop 1 drop, Both Eyes, Nightly, First dose on Fri11/21/24 at 2100, Until Discontinued, Routine 2012 (Given - Provider: Temitope Pearl) 2115 (Given - Provider: Lavern Coronado) calcium-vitamin D 500-200 MG-UNIT per tablet 1 tablet 1 tablet, Oral, Daily, First dose (after last modification) on Fri11/25/24 at 0900, Until Discontinued, Routine 08 (Given - Provider: Joanna Be RN) 0928 (Given - Provider: Joanna Be RN) 08 (Given - Provider: Nikky Tidwell RN) cetirizine (ZyrTEC) tablet 10 mg 10 mg, Oral, Nightly, First dose (after last modification) on Fri11/24/24 at 2100, Until Discontinued, Routine 2010 (Given - Provider: Temitope Pearl) 2103 (Given - Provider: Lavern Coronado) DULoxetine (Cymbalta) DR capsule 80 mg 80 mg, Oral, Daily, First dose on Fri11/26/24 at 0900, Until Discontinued, Routine 111 (Given - Provider: Joanna Be RN) 0929 (Given - Provider: Joanna Be RN) 08 (Given - Provider: Nikky Tidwell RN) ezetimibe (Zetia) tablet 10 mg 10 mg, Oral, Daily, First dose (after last modification) on Fri11/25/24 at 0900, Until Discontinued, Routine 1114 (Given - Provider: Joanna Be RN) 0928 (Given - Provider: Joanna Be RN) 0800 (Given - Provider: Nikky Tidwell RN) furosemide (Lasix) tablet 80 mg 80 mg, Oral, Daily, First dose on Fri11/26/24 at 1115, Until Discontinued, Routine 08 (Given - Provider: Joanna Be RN) 101 (Given - Provider: Joanna Be RN) 08 (Given - Provider: Nikky Tidwell RN) gabapentin (Neurontin) capsule 600 mg 600 mg, Oral, 2 times daily, First dose (after last modification) on Fri11/24/24 at 2100, Until Discontinued, Routine 826 (Given - Provider: Joanna Be RN)2010 (Given - Provider: Temitope Pearl) 927 (Given - Provider: Joanna Be RN)2103 (Given - Provider: Lavern Coronado) 0800 (Given - Provider: Nikky Tidwell RN) hydroxychloroquine (Plaquenil) tablet 200 mg 200 mg, Oral, Nightly, First dose (after last modification) on Fri11/24/24 at 2100, Until Discontinued, Routine 2012 (Given - Provider: Temitope Pearl) 2103 (Given - Provider: Lavern Coronado) insulin glargine-yfgn 100 UNIT/ML injection 5 Units 5 Units, Subcutaneous, 2 times daily, First dose (after last modification) on Fri11/25/24 at 2100, Until Discontinued, Routine 0829 (Given - Provider: Joanna Be RN)2011 (Given - Provider: Temitope Pearl) 0929 (Given - Provider: Joanna Be RN)2131 (Not Given - Provider: Lavern Coronado - Reason: Hold for condition: must add comment - Comment: holding as per Babs Armijo suggestion for BG 93. Checking blood sugars Q4H) 0948 (Given - Provider: Nikky Tidwell RN) insulin lispro (Admelog) 100 units/mL injection - Correction - Resistant Dose (CANCELED) 0-10 Units, Subcutaneous, 3 times daily with meals, First dose on Fri11/24/24 at 1230, Until Discontinued, Routine 0829 (Given - Provider: Joanna Be RN)1228 (Given - Provider: Joanna Be RN)1751 (Given - Provider: Joanna Be RN) 0921 (Not Given - Provider: Joanna Be RN - Reason: Order parameters not met)1203 (Given - Provider: Joanna Be RN)1728 (Not Given - Provider: Joanna Be RN - Reason: Order parameters not met) 0853 (Not Given - Provider: Nikky Tidwell RN - Reason: Order parameters not met) insulin lispro (Admelog) 100 units/mL injection - Correction - Standard Dose 0-5 Units, Subcutaneous, 3 times daily with meals, First dose on Fri11/29/24 at 1230, Until Discontinued, Routine 1238 (Given - Provider: Nikky Tidwell RN)1730 (Canceled Entry - Provider: Automatic Discharge Provider - Comment: Automatically canceled at discontinue of medication order) insulin lispro (Admelog) injection - Correction - Nighttime Dose 0-3 Units, Subcutaneous, 2 times nightly (2100 & 0300), First dose on Fri11/24/24 at 2100, Until Discontinued, Routine 0337 (Not Given - Provider: Temitope Pearl - Reason: Order parameters not met)2002 (Not Given - Provider: Temitope Pearl - Reason: Order parameters not met) 403 (Not Given - Provider: Temitope Pearl - Reason: Order parameters not met)2007 (Not Given - Provider: Lavern Coronado - Reason: Order parameters not met) 045 (Not Given - Provider: Lavern Coronado - Reason: Order parameters not met) Insulin Lispro (Admelog, HumaLOG) 100 UNIT/ML injection 4 Units 4 Units, Subcutaneous, Daily with dinner, First dose on Fri11/29/24 at 1800, Until Discontinued, Routine 1800 (Canceled Entry - Provider: Automatic Discharge Provider - Comment: Automatically canceled at discontinue of medication order) Insulin Lispro (Admelog, HumaLOG) 100 UNIT/ML injection 5 Units (CANCELED) 5 Units, Subcutaneous, 3 times daily with meals, First dose on Fri11/24/24 at 1845, Until Discontinued, Routine 0829 (Given - Provider: Joanna Be RN)1227 (Given - Provider: Joanna Be RN)1751 (Given - Provider: Joanna Be RN) 0929 (Given - Provider: Joanna Be RN)1203 (Given - Provider: Joanna Be RN)1740 (Not Given - Provider: Joanna Be RN - Reason: Order parameters not met) 0853 (Not Given - Provider: Nikky Tidwell RN - Reason: Hold for condition: must add comment - Comment: <50% breakfast) Insulin Lispro (Admelog, HumaLOG) 100 UNIT/ML injection 6 Units 6 Units, Subcutaneous, Daily with breakfast, First dose on Fri11/30/24 at 0800, Until Discontinued, Routine Insulin Lispro (Admelog, HumaLOG) 100 UNIT/ML injection 6 Units 6 Units, Subcutaneous, Daily with lunch, First dose on Fri11/29/24 at 1230, Until Discontinued, Routine 1239 (Not Given - Provider: Nikky Tidwell RN - Reason: Hold for condition: must add comment - Comment: <25%) latanoprost (Xalatan) 0.005 % ophthalmic solution 1 drop 1 drop, Both Eyes, Nightly, First dose on 11/21/24 at 2100, Until Discontinued, Routine 2012 (Given - Provider: Temitope Pearl) 2115 (Given - Provider: Lavern Coronado) levothyroxine (Synthroid, Levoxyl) tablet 125 mcg 125 mcg, Oral, Daily with breakfast, First dose (after last modification) on [place] 11/25/24 at 0800, Until Discontinued, Routine 826 (Given - Provider: Joanna Be RN) 927 (Given - Provider: Joanna Be RN) 800 (Given - Provider: Nikky Tidwell, RN) lidocaine (Uro-Jet) 2 % gel 1 Application (COMPLETED) Topical, Once, 1 dose, On 11/27/24 at 1330, Routine 1331 (Given - Provider: Joanna Be RN) metoprolol tartrate (Lopressor) tablet 25 mg 25 mg, Oral, 2 times daily, First dose (after last modification) on 11/24/24 at 2100, Until Discontinued, Routine 826 (Given - Provider: Joanna Be RN)2011 (Given - Provider: Temitope Pearl) 928 (Given - Provider: Joanna Be RN)2103 (Given - Provider: Lavern Coronado) 08 (Given - Provider: Nikky Tidwell, RN) mometasone-formoterol (Dulera 100) 100-5 MCG/ACT inhaler 2 puff(Linked Group 1) 2 puff, Inhalation, 2 times daily, First dose on 11/21/24 at 2100, Until Discontinued 103 (Not Given - Provider: Joanna Be RN - Reason: Order parameters not met)2100 (Canceled Entry - Provider: Automatic Discharge Provider - Comment: Automatically canceled at discontinue of medication order) 0900 (Canceled Entry - Provider: Automatic Discharge Provider - Comment: Automatically canceled at discontinue of medication order)2103 (Given - Provider: Lavern Coronado) 08 (Given - Provider: Nikky Tidwell, EVITA) mycophenolate (Cellcept) capsule 1,000 mg 1,000 mg, Oral, 2 times daily, First dose on Lurdes 11/25/24 at 2100, Until Discontinued, Routine 1109 (Given - Provider: Joanna Be RN)2011 (Given - Provider: Temitope Pearl) 0929 (Given - Provider: Joanna Be RN)2104 (Given - Provider: Lavern Coronado) 0801 (Given - Provider: Nikky Tidwell, EVITA) piperacillin-tazobact am (Zosyn) 4.5 g in sodium chloride 0.9% 100 mL IVPB (vial adapter required) 4.5 g, Intravenous, Every 6 hours, 20 doses, First dose (after last modification) on Lurdes 11/25/24 at 1800, Last dose on Fri11/30/24 at 1200, Routine 0056 (New Bag - Provider: Temitope Pearl)0617 (New Bag - Provider: Temitope Pearl)1228 (New Bag - Provider: Joanna Be RN)1749 (New Bag - Provider: Joanna Be RN)2316 (New Bag - Provider: Temitope Pearl) 0508 (New Bag - Provider: Temitope Pearl)1202 (New Bag - Provider: Joanna Be RN)1740 (New Bag - Provider: Joanna Be RN) 0000 (New Bag - Provider: Lavern Coornado)0619 (New Bag - Provider: Lavern Coronado)1122 (New Bag - Provider: Nikky Tidwell RN)1800 (Canceled Entry - Provider: Automatic Discharge Provider - Comment: Automatically canceled at discontinue of medication order) potassium chloride (Klor-Con) packet 40 mEq (COMPLETED) 40 mEq, Oral, Once, 1 dose, On 11/27/24 at 0930, Routine 1014 (Given - Provider: Joanna Be RN) potassium chloride CR (Klor-Con) ER tablet 20 mEq (COMPLETED)(Linked Group 2) 20 mEq, Oral, Once, 1 dose, On 11/27/24 at 0915, Routine 0828 (Given - Provider: Joanna Be RN) potassium chloride CR (Klor-Con) ER tablet 40 mEq(Linked Group 2) 40 mEq, Oral, Once, 1 dose, On Sat /20/25 at 0800, Routine 0827 (Not Given - Provider: Joanna Be RN - Reason: Patient/family refused) senna-docusate (Karyn-Colace) 8.6-50 MG per tablet 1 tablet (CANCELED) 1 tablet, Oral, 2 times daily, First dose (after last modification) on Fri11/24/24 at 2100, Until Discontinued, Routine 08 (Not Given - Provider: Joanna Be RN - Reason: Order parameters not met)2020 (Not Given - Provider: Temitope Pearl - Reason: Patient/family refused) 929 (Not Given - Provider: Joanna Be RN - Reason: Order parameters not met)2103 (Given - Provider: Lavern Coronado) 08 (Given - Provider: Nikky Tidwell RN) Tiotropium [place] Monohydrate (Spiriva Respimat) 2.5 MCG/ACT inhaler 2 puff(Linked Group 1) 2 puff, Inhalation, Daily, First dose on Fri11/21/24 at 1530, Until Discontinued 1039 (Not Given - Provider: Joanna Be RN - Reason: Patient/family refused) 0900 (Canceled Entry - Provider: Automatic Discharge Provider - Comment: Automatically canceled at discontinue of medication order) 08 (Given - Provider: Nikky Tidwell RN) warfarin (Coumadin) intermittent dosing 1 each Oral, See admin instructions, Starting on Fri11/29/24 at 0833, Until Fri11/29/24 at 1833, Routine warfarin (Coumadin) tablet 4 mg (CANCELED) 4 mg, Oral, Daily, First dose (after last modification) on Fri11/24/24 at 1700, Until Discontinued, Routine 1752 (Given - Provider: Joanna Be, EVITA) 1740 (Given - Provider: Joanna Be RN) PRN Medication Order 11/27/2024 11/28/2024 11/29/2024 acetaminophen (Tylenol) tablet 1,000 mg 1,000 mg, Oral, Every 6 hours PRN, Starting on Fri11/24/24 at 1520, Until Fri11/29/24 at 1833, Routine, moderate pain, mild pain albuterol (Proventil) (2.5 MG/3ML) 0.083% nebulizer solution 2.5 mg 2.5 mg, Nebulization, Every 6 hours PRN, Starting on 11/22/24 at 0022, Until Fri11/29/24 at 1833, Routine, wheezing 0937 (Given - Provider: Allison Aguirre) 1814 (Given - Provider: Carlee Nicole)2323 (Given - Provider: Taylor Dejesus) 1001 (Given - Provider: Ruthie Garza) dextrose 10 % (D10W) bolus 125 mL(Linked Group 3) 125 mL, Intravenous, Every 15 min PRN, Starting on 11/20/24 at 1732, Until 11/29/24 at 1833, Administer over 15 Minutes, Routine, low blood sugar BG 51-89 mg/dL 0119 (See Alternative - Provider: Temitope Pearl)0630 (See Alternative - Provider: Temitope Pearl) dextrose 10 % (D10W) bolus 250 mL(Linked Group 3) 250 mL, Intravenous, Every 15 min PRN, Starting on 11/20/24 at 1732, Until Fri11/29/24 at 1833, Administer over 15 Minutes, Routine, PRN low blood sugar BG =/<50 mg/dL 011 (New Bag - Provider: Temitope Pearl - Comment: BG 34)0630 (New Bag - Provider: Temitope Pearl) glucagon (human recombinant) injection 1 mg(Linked Group 3) 1 mg, Intramuscular, Every 15 min PRN, Starting on 11/20/24 at 1732, Until Fri11/29/24 at 1833, Routine, low blood sugar per Hypoglycemia Prevention and Treatment protocol 0119 (See Alternative - Provider: Temitope Pearl)0630 (See Alternative - Provider: Temitope Pearl) glucose (Glutose) 40 % oral gel 15-30 grams of glucose(Linked Group 3) 15-30 grams of glucose, Sublingual, Every 15 min PRN, Starting on 11/20/24 at 1732, Until 11/29/24 at 1833, Routine, low blood sugar, per Hypoglycemia Prevention and Treatment protocol 0119 (See Alternative - Provider: Temitope Pearl)0630 (See Alternative - Provider: Temitope Pearl) hydrALAZINE (Apresoline) injection 10 mg(Linked Group 4) 10 mg, Intravenous, Every 1 hour PRN, Starting on 11/20/24 at 1342, Until Fri11/29/24 at 1833, Routine, high blood pressure, for non-TPA SBP > 220 & DBP > 110 and for tPA patient PRN SBP > 180 and DBP >105, Second-Line hydrALAZINE (Apresoline) injection 20 mg(Linked Group 4) 20 mg, Intravenous, Every 1 hour PRN, Starting on 11/20/24 at 1342, Until Fri11/29/24 at 1833, Routine, high blood pressure, for non-TPA SBP > 220 & DBP > 110 and for tPA patient PRN SBP > 180 and DBP >105, Second-Line labetalol (Normodyne,Trandate) injection 10 mg(Linked Group 5) 10 mg, Intravenous, Every 1 hour PRN, Starting on 11/20/24 at 1342, Until Fri11/29/24 at 1833, Routine, high blood pressure, for non-TPA SBP > 220 & DBP > 110 and for tPA patient PRN SBP > 180 and DBP >105, First-Line, HOLD for HR< 60 labetalol (Normodyne,Trandate) injection 20 mg(Linked Group 5) 20 mg, Intravenous, Every 1 hour PRN, Starting on 11/20/24 at 1342, Until Fri11/29/24 at 1833, Routine, high blood pressure, for non-TPA SBP > 220 & DBP > 110 and for tPA patient PRN SBP > 180 and DBP >105, First-Line, HOLD for HR< 60 mineral oil-hydrophilic petrolatum (Aquaphor) ointment 1 Application Topical, As needed, Starting on 11/28/24 at 1409, Until Fri11/29/24 at 1833, Routine, diaper rash nitroglycerin (Nitrostat) SL tablet 0.4 mg 0.4 mg, Sublingual, Every 5 min PRN, Starting on 11/21/24 at 1428, Until Fri11/29/24 at 1833, Routine, chest pain sodium chloride 0.9 % flush 10 mL(Linked Group 6) 10 mL, Intravenous, As needed, Starting on 11/20/24 at 1342, Until Fri11/29/24 at 1833, Routine, line care Linked Groups Order Group 1: Tiotropium [place] Monohydrate (Spiriva Respimat) 2.5 MCG/ACT inhaler 2 puffJump to med 2 puff, Inhalation, Daily, First dose on 11/21/24 at 1530, Until Discontinued And mometasone-formoterol (Dulera 100) 100-5 MCG/ACT inhaler 2 puffJump to med 2 puff, Inhalation, 2 times daily, First dose on 11/21/24 at 2100, Until Discontinued Group 2: potassium chloride CR (Klor-Con) ER tablet 40 mEqJump to med 40 mEq, Oral, Once, 1 dose, On 11/27/24 at 0800, Routine Followed by potassium chloride CR (Klor-Con) ER tablet 20 mEq (COMPLETED)Jump to med 20 mEq, Oral, Once, 1 dose, On 11/27/24 at 0915, Routine Group 3: glucose (Glutose) 40 % oral gel 15-30 grams of glucoseJump to med 15-30 grams of glucose, Sublingual, Every 15 min PRN, Starting on 11/20/24 at 1732, Until Fri11/29/24 at 1833, Routine, low blood sugar, per Hypoglycemia Prevention and Treatment protocol Or dextrose 10 % (D10W) bolus 125 mLJump to med 125 mL, Intravenous, Every 15 min PRN, Starting on 11/20/24 at 1732, Until Fri11/29/24 at 1833, Administer over 15 Minutes, Routine, low blood sugar BG 51-89 mg/dL Or dextrose 10 % (D10W) bolus 250 mLJump to med 250 mL, Intravenous, Every 15 min PRN, Starting on 11/20/24 at 1732, Until Fri11/29/24 at 1833, Administer over 15 Minutes, Routine, PRN low blood sugar BG =/<50 mg/dL Or glucagon (human recombinant) injection 1 mgJump to med 1 mg, Intramuscular, Every 15 min PRN, Starting on 11/20/24 at 1732, Until Fri11/29/24 at 1833, Routine, low blood sugar per Hypoglycemia Prevention and Treatment protocol Group 4: hydrALAZINE (Apresoline) injection 10 mgJump to med 10 mg, Intravenous, Every 1 hour PRN, Starting on 11/20/24 at 1342, Until 11/29/24 at 1833, Routine, high blood pressure, for non-TPA SBP > 220 & DBP > 110 and for tPA patient PRN SBP > 180 and DBP >105, Second-Line Or hydrALAZINE (Apresoline) injection 20 mgJump to med 20 mg, Intravenous, Every 1 hour PRN, Starting on 11/20/24 at 1342, Until Fri11/29/24 at 1833, Routine, high blood pressure, for non-TPA SBP > 220 & DBP > 110 and for tPA patient PRN SBP > 180 and DBP >105, Second-Line Group 5: labetalol (Normodyne,Trandate) injection 10 mgJump to med 10 mg, Intravenous, Every 1 hour PRN, Starting on 11/20/24 at 1342, Until 11/29/24 at 1833, Routine, high blood pressure, for non-TPA SBP > 220 & DBP > 110 and for tPA patient PRN SBP > 180 and DBP >105, First-Line, HOLD for HR< 60 Or labetalol (Normodyne,Trandate) injection 20 mgJump to med 20 mg, Intravenous, Every 1 hour PRN, Starting on 11/20/24 at 1342, Until Fri11/29/24 at 1833, Routine, high blood pressure, for non-TPA SBP > 220 & DBP > 110 and for tPA patient PRN SBP > 180 and DBP >105, First-Line, HOLD for HR< 60 Group 6: Insert peripheral IV (COMPLETED) Once, On 11/20/24 at 1343, For 1 occurrence And Saline lock IV (COMPLETED) Once, On 11/20/24 at 1343, For 1 occurrence And sodium chloride 0.9 % flush 10 mL (CANCELED) 10 mL, Intravenous, Every 12 hours, First dose on 11/20/24 at 1345, Until Discontinued, Routine And sodium chloride 0.9 % flush 10 mLJump to med 10 mL, Intravenous, As needed, Starting on 11/20/24 at 1342, Until 11/29/24 at 1833, Routine, line care documented in this encounter Additional Health Concerns Assessment Noted Time PHQ-9 Depression Total Score: 0 09/09/19 11:19 AM EDT A fall risk assessment has been complete d for the patient 11/15/2024 3:19 PM EDT A Body Mass Index follow-up plan has been documented for the patient 11/29/2024 3:25 PM EDT documented as of this encounter Care Teams Desk Pens Assembler Relationship Specialty Start Date End Date Pcp, No [address] [place] [address] PCP - General Family Medicine 11/21/23 12/06/24 Alisa Kunz DO [address] [place] [id number] Internal Medicine 11/21/23 Kodi Busots DO [address] [phone] Surgeon Cardiothoracic Surgery 11/06/22 Sujit Arriola MD [address] [place] [address] Consulting Physician Pulmonary Disease 11/06/22 Sujit Reyes MD [address] [place] [address] Referring Physician 12/04/22 Zee Lazar DO [address] [place] [address] Resident 09/08/24 documented as of this encounter
--- OUTSIDE RECORDS SUMMARY | 2024-12-02 15:30 | XMS_ITS | Encounter Summary ---
Author Organization [facility] Address [address] [place] [address] Care Team Providers Care Grid Inspector Name Role Phone Alisa Kunz Primary Care Provider [phone]- [phone] Reason for Visit * Reason Comments Coronary Artery Disease Encounter Details Date Type Department Care Team (Late st Contact Info) Description 12/02/2024 3:30 PM EDT Office Visit [facility] [address] [place] [address] [address] Sujit Reyes MD [address] [facility] [address] [place] [address] Paroxysmal atrial fibrillation (Primary Dx); Complete heart block; Coronary artery disease involving ione coronary artery of ione heart without angina pectoris; Chronic diastolic congestive heart failure Social History Tobacco Use Types Packs/Day Years [...] Sign Reading Time Taken Comments Blood Pressure 130/58 12/02/2024 3:31 PM EDT Pulse 60 12/02/2024 3:31 PM EDT Temperature - - Respiratory Rate - - Oxygen Saturation 92% 12/02/2024 3:31 PM EDT with o2 Inhaled Oxygen Concentration - - Weight 60.8 kg (134 lb) 12/02/2024 3:31 PM EDT Height 162.6 cm (5' 4.02 ) 12/02/2024 3:31 PM ED T Body Mass Index 22.99 12/02/2024 3:31 PM EDT documented in this encounter Progress Notes * Sujit Reyes MD - 12/02/2024 3:30 PM EDT Michelle Felipe 1950 12/02/2024 [facility] Referring Provider: No ref. provider found Alisa Kunz DO [address] [place], [place] [id number] Chief Complaint Patient presents with Coronary Artery Disease Problem List: Ischemic heart disease: CABG, Dr. Timur Lopez, July 1999 (SHEEHAN to distal LAD,SVG to first diagonal, SVG to second diagonal, SHAR [place] metal stenting of the ostium of the SVG to second diagonal, Rotational atherectomy/PTCA ofRCA and SVG to second diagonal in-stent. PTCRA/stenting of proximal RCA in-stent restenosis and rotational atherectomy/PTCA of SVG to seconddiagonal. Brachy therapy for in-stent restenosis of proximal dominant RCA, 04/16/2001, LVEF (65%). [facility]: Dr. Thakkar for acute PR, 01/10/2007: Normal LV function and wall motion, Patent SVG to second diagonal, Patent SHEEHAN graft to LAD, 50% ostial stenosis of SVG to first diagonal, JANA Taxus stenting of mid RCA stenosis. Mild reversible anteroischemia - Cardiac SPECT (scan date ?), LVEF (77%). [facility], May 2011, [facility], reportedly revealed no disease (data deficit) in setting of diabetic ketoacidosis associated with acute respiratory failure requiring mechanical ventilation x 5 days. Echocardiogram 04/12/16: LVEF 70%, mild MR, AV sclerosis Myocardial perfusion study 02/17/2017: Wnl, EF 70% Echo, 05/18/21, EF 60%, Mild MS [facility] PTCA RCA ISR: Patent Grafts. 04/30 Echo 11/27/2023: EF 55-60% no pericardial effusion, apical wall akinetic, Right Ventricle: The rightventricle is normal in size. The right ventricular [...] block SJ PPM - GFT CVA 04/27 [facility], outpt monitor demonstrated Afib 40% carotid plaque with subjective work-up negative for seizures-data deficit, discharged on Eliquis and Plavix Dyslipidemia. Paroxysmal atrial fibrillation, anticoagulated with Eliquis, CHADVasc 7 Obstructive sleep apnea: BiPAP mask tolerable. Current CPAP use. 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 Recurrent pleural effusions- thoracenteses at [facility] 11/30 lymphocytic [facility] pleuroscopy/bx drain catheter 6 weeks(to start immunoRx- plaquenil (chronic organizing pleuritis) 2154-3143 transudative neg cx's Hypothyroidism: On chronic Synthroid replacement. Dyspepsia. B12 deficiency anemia. Remote hepatitis. Right lower extremity incision cellulitis, resolved. Right shoulder adhesive capsulitis. Charcot joint fracture of left foot requiring booting. Past surgical history: Bilateral laser surgery for diabetic retinopathy. Unknown left eye surgery. Tonsillectomy. section x2. Lower back surgery for lumbar disc disease. Right carpal tunnel release. Laparotomy for adhesions, remote. Allergies Allergies Allergen Reactions Lipitor [Atorvastatin] Myalgia Morphine And Codeine Hallucinations Spironolactone Dizziness Rosuvastatin Unknown - Low Severity Azathioprine Unknown [...] (Three) Times a Day Before Meals. PER SS, Disp: , Rfl: latanoprost (XALATAN) 0.005 % [...] tablets by mouth 2 (Two) Times a Day., Disp: , Rfl: nitroglycerin (NITROSTAT) 0.3 MG [...] by mouth Every Night., Disp: , Rfl: Trelegy Ellipta 200-62.5-25 MCG/INH inhaler, Inhale 1 puff Daily., Disp: , Rfl: Urine Glucose-Ketones Test (Keto-Diastix) strip, Use daily as needed per endocrinology, Disp: , Rfl: warfarin (COUMADIN) 5 MG tablet, TAKE 1/2 TO 1 TABLET ONCE A DAY OR DIRECTED TAKE 7.5 mg on 10/12/2024. (Patient taking differently: Take 1 tablet by mouth Every Night. Takes 7.5 mg every FRIDAY), Disp: 30 tablet, Rfl: 2 spironolactone (ALDACTONE) 25 MG tablet, Take 6.25 mg by mouth Daily. (Patient not taking: Reportedon 12/02/2024), Disp: , Rfl: History of Present Illness Pt recently had CVA, states was seen at [facility] but I see no [facility] data. She had KENIA 11/19/24 at [facility]. Noted w sclerotic MV . No MAX thrombus Vitals: 12/02/24 1531 Pulse: 60 Weight: 60.8 kg (134 lb) Height: 162.6 cm (64.02 ) Body mass index is 22.99 kg/m??. Constitutional: Appearance: Not in distress. Frail. Comments: In wheelchair on 2l nc O2 Neck: Vascular: No JVR. JVD normal. Pulmonary: Effort: Pulmonary effort is normal. Breath sounds: Normal breath sounds. No wheezing. No rhonchi. No rales. Chest: Chest wall: Not tender to palpatation. Cardiovascular: PMI at left midclavicular line. Pacer cdi Normal rate. Regular rhythm. Normal S1. Normal S2. Murmurs: There is a systolic murmur. No gallop. No click. No rub. Pulses: Intact distal pulses. Edema: Peripheral edema absent. Abdominal: General: Bowel sounds are normal. Palpations: Abdomen is soft. Tenderness: There is no abdominal tenderness. Musculoskeletal: Normal range of motion. General: No tenderness. Skin: General: Skin is warm and dry. Neurological: General: No focal deficit present. Mental Status: Alert and oriented to person, place and time. Diagnostic Data: Procedures 1. Paroxysmal atrial fibrillation 2. Complete heart block 3. Coronary artery disease involving ione coronary artery of ione heart without angina pectoris 4. Chronic diastolic congestive heart failure Impression/Plan: 1. PAF: Now persistent. Per GFT. Not candidate for ECV given cva 2. CHB: PPM implant-Normal interrogation. 3 years on battery. 3. CAD: Remote CABG, CBI 2020 ISR RCA. Patent grafts. Normal EF, Mild MS 4. DHF - gdmt 5. Pleural Effusions: lupus related, follows with pulmonology at , s/p thoracentesis and pleurodesis see #1 documented in this encounter Plan of Treatment Upcoming Encounters Date Type Department Care Team (Late st Contact Info) Description 01/19/2025 1:45 PM EST Office Visit [facility] [address] [place] [phone] Naveen Velasquez MD [address] [facility] [address] [place], [place] [id number] 05/04/2026 2:45 PM EST Office Visit [facility] [address] [place] [address] [place] [address] Sujit Reyes MD [address] [facility] [address] [place], [place] [id number] documented as of this encounter Visit Diagnoses Diagnosis Paroxysmal atrial fibrillation- Primary Atrial fibrillation Complete heart block Atrioventricular block, complete Coronary artery disease involving ione coronary artery of ione heart without angina pectoris Chronic diastolic congestive heart failure documented in this encounter Care Teams Grid Inspector Relationship Specialty Start Date End Date Alisa Kunz DO [address] [place], [place] [id number] PCP - General Internal Medicine 04/26/21 documented as of this encounter
--- OUTSIDE RECORDS SUMMARY | 2024-12-06 11:00 | XMS_ITS | Encounter Summary ---
Author Organization [facility] Address [address] [place] [address] Care Team Providers Care Child Support Agent Name Role Phone Pcp, No Primary Care Provider Unavailabl e Alisa Kunz DO Unavailable [phone] Kodi Bustos DO Unavailable [phone] Sujit Arriola MD Unavailable [phone] Sujit Reyes MD Unavailable [phone] Zee Lazar DO Unavailable [phone] Reason for Referral * Imaging (Urgent) - Closed Specialty Diagnoses / Procedures Referred By Contdarwin t Referred To Contact Cardiology Diagnoses Limb swelling Procedures VAS US Venous Duplex Upper Extremity Unilateral Left VAS US Venous Duplex Upper Extremity Bilateral Alisa Kunz DO [address] [place] [address] Phone: tel: fax: Referral ID Status Reason Start Date Expiration Date V isits Requested Visits Authorized [id number] Closed Perform Procedure 12/06/2024 06/07/2026 1 1 * Imaging (Urgent) - Closed Specialty Diagnoses / Procedures Referred By Contac t Referred To Contact Cardiology Diagnoses Limb swelling Procedures VAS US Venous Duplex Lower Extremity Bilateral Alisa Kunz DO [address] [place] [address] Phone: tel: fax: Referral ID Status Reason Start Date Expiration Date V isits Requested Visits Authorized [id number] Closed Perform Procedure 12/06/2024 06/07/2026 1 1 * Consultation (Urgent) - Authorized Specialty Diagnoses / Procedures Referred By Luis Armando mckeon Referred To Contact Neurology Diagnoses Cerebrovascular accident (CVA) due to embolism of precerebral artery Alisa Kuzn DO [address] [address] Phone: tel: fax: Referral ID Status Reason Start Date Expiration Date Visits Requested Visits Authorized [id number] Authorized Specialty Services Required 12/06/2024 06/07/2026 1 1 Scheduling Instructions Right temporal lobe CVA; trying to merge charts * Consultation (Urgent) - Authorized Specialty Diagnoses / Procedures Referred By Luis Armando t Referred To Contact Dentistry Diagnoses Closed fracture of tooth with delayed healing, subsequent encounter Alisa Kunz DO [address] [address] Phone: tel: fax: [facility] [address] [place] [address] Phone: tel: fax: Referral ID Status Reason Start Date Expiration Date Visits Requested Visits Authorized [id number] Authorized Specialty Services Required 12/06/2024 06/07/2026 1 1 Scheduling Instructions Broken tooth; lower molar on the bottom left side. Reason for Visit * Reason Comments Cerebrovascular Accident Encounter Details Date Type Department Care Team (Late st Contact Info) Description 12/06/2024 11:00 AM EDT Office Visit [facility] [address] [place] [address] Alisa Kunz, [address] [place] [address] Type 1 diabetes mellitus with other specified complication (CMS/HCC) (Primary Dx); Closed fracture of tooth with delayed healing, subsequent encounter; Cerebrovascular accident (CVA) due to embolism of right posterior cerebral artery (CMS/HCC); Cerebrovascular accident (CVA) due to embolism of precerebral artery (CMS/HCC); Limb swelling; Osteopenia, unspecified location; Encounter for screening mammogram for breast cancer Social History Tobacco Use Types Packs/Day Years [...] Recorded Patient Health Questionnaire-2 Score 0 10/27/2024 [facility] [place] of Occupat ional Health - Occupational Stress [...] living in a mcfp (including now)? No 11/22/2024 [facility] Utilities Answer Date Recorded In the past 12 months has th [employer], gas, oil, or water company threatened to [...] first t anselmo in the morning (EYE-MANAGER OF [employer]ONMENTAL [employer]) to steady your nerves or to [...] Sign Reading Time Taken Comments Blood Pressure 165/72 12/06/2024 11:51 AM EDT Pulse 60 12/06/2024 11:51 AM EDT Temperature 36.6 C (97.9 F) 12/06/2024 11:28 AM EDT Respiratory Rate 18 12/06/2024 11:28 AM EDT Oxygen Saturation 95% 12/06/2024 11:28 AM EDT Inhaled Oxygen Concentration - - Weight 60.9 kg (134 lb 4.2 oz) 12/06/2024 11:28 AM EDT Height 162.6 cm (5' 4 ) 12/06/2024 11:28 AM EDT Body Mass Index 23.05 12/06/2024 11:28 AM EDT documented in this encounter Functional Status * Calculated C-SSRS Risk Score (Lifetime/Recent) Answer Date of Assessment Author No Risk Indicated 12/06/2024 11:25 AM EDT Allison Hartley * Question Answer Date of Assessment Author 1. Wish to be (Past 1 Month) No 025 11:25 AM EDT Allison Hartley 2. Non-Specific Active Suici dillon Thoughts (Past 1 Month) No 12/06/2024 11:25 AM EDT Rod Hartley 6. Suicidal Behavior (Lifetime) No 11:25 AM EDT Allison Hartley documented as of this encounter Miscellaneous Notes * Progress Notes - Alisa Kunz, DO - 12/06/2024 11:00 AM EDT Subjective Michelle Felipe HPI Ms. Felipe is an established patient who presents for follow-up. Oral Surgery Assistant present during exam. We also called patient's daughter to assist with history. Michelle came into clinic today and initially was hypoglycemic, down into the 30s. This made obtaining a history difficult initially. As the encounter progressed, Michelle was able to discuss recent hospitalization. This encounter was further complicated by the fact that patient's hospitalization record was under a completely new MRN and was not merged with her chart. After some time I was able to find the duplicate chart, review discharge summary, and had our staff request a merge. In the interim since last visit: - Patient was hospitalized from 11/20/2024 - 11/29/2024 for acute ischemic stroke in the right temporal lobe, thought to be cardioembolic. She was discharged to [facility], where she is currently. Does not have any neurology follow- up with the stroke service at this time but will urgently refer today. - She notes that she did not receive a cardioversion for the atrial fibrillation due to this acute CVA. Acute Concerns: - Broken tooth: Happened in the hospital. Trying to get in to see Dentistry. [facility]. Trying to get in sooner than December (current appointment 01/06/2025). Broken molar bottom left. - LUE and LLE>RLE Swelling: Since hospitalization. Unclear on warfarin dosing/follow-up with [facility] anticoagulation clinic. Would like to obtain US. - Debility, Deconditioning: Is essentially unable to walk at this point due to debility/deconditioning. Working with PT at SNF. Please see problem-based assessment/plan below. Medications Ordered Prior to Encounter[1] All medications have been reviewed today. The following portions of the patient's chart were reviewed in this encounter and updated as appropriate: past medical history, surgical history, family history, tobacco history, allergies, and medications Review of Systems See HPI for details. Objective Vitals: 12/06/24 1151 BP: (!) 165/72 Pulse: 60 Resp: Temp: SpO2: Physical Exam Vitals reviewed. Constitutional: Appearance: She is ill-appearing. Comments: Initially: Michelle appeared very ill, slurring words, difficulty thinking/talking due to hypoglycemia. We provided snacks/glucose tabs, these symptoms all resolved: Returned to baseline. Michelle appears visibly fatigued today. HENT: Mouth/Throat: Mouth: Mucous membranes are dry. Comments: Broken left back molar. Cardiovascular: Comments: LUE, LLE>RLE with 2+ edema. Pulmonary: Effort: Pulmonary effort is normal. Breath sounds: No wheezing, rhonchi or rales. Comments: On 2L O2: No obvious abnormalities on auscultation of the lungs. Skin: General: Skin is warm and dry. Findings: Bruising present. Psychiatric: Mood and Affect: Mood normal. Behavior: Behavior normal. Assessment/Plan Acute Ischemic Stroke, Right Temporal Lobe, History of CVA - Patient was hospitalized from 11/20/2024 - 11/29/2024 for acute ischemic stroke in the right temporal lobe, thought to be cardioembolic. She was discharged to [facility], where she is currently. Does not have any neurology follow- up with the stroke service at this time but will urgently refer today. - Follows with anticoagulation team at [facility] for warfarin management. Recommended she reach out to them [place] for follow-up. LUE, LLE>RLE Swelling - With labile INR on warfarin, concern for DVT. Ordered UE and LE venous duplex STAT for evaluation. Broken Tooth - STAT dentistry referral to here at , hoping they can see her sooner than her current dentist (although encouraged her to call her dentist to see if they can get her in sooner). Debility, Physical Deconditioning - At SNF currently, recommend aggressive PT/OT to assist with improving mobility. Hypoglycemia (Resolved), History of T1DM, Diabetic Neuropathy - Hypoglycemia in clinic today: Resolved by end of encounter (after providing interventions). - Follows with endocrinology outpatient for management. - On gabapentin for peripheral neuropathy: Continue. HTN, Uncontrolled - Typically well controlled HTN however uncontrolled today: improved on re-check 165/72. Potentially related to hypoglycemia episode. - Patient is getting follow-up/monitoring at SNF, will continue to monitor, no changes to regimen today. - Follows with [facility]. Chronic Hypoxic Respiratory Failure, in the setting of Recurrent Bilateral Pleural Effusions of Unclear/Multifactorial Etiology, History of Obstructive Lung Disease - Patient recently hospitalized 08/14- and treated for right pleural effusion requiring chest tube placement (08/17-) and pleurodesis (08/19). Multifactorial etiology: SLE vs HFpEF. Re-hospitalized 09/09 - 09/15/2024 and underwent another thoracentesis. - On baseline 2L O2 today, lungs actually sound clear without concerning findings today. - Follows with pulmonary and [facility] outpatient. HFpEF, Grade II Diastolic Dysfunction, Mild Pulmonary Hypertension - Echo from 07/12/2024 reviewed showing LVEF 55-60%, no wall motion abnormalities, RV not well visualized, mild/moderate AR, mild MS, severe mitral annular calcification, mitral valve pressure 4 mmHg at 99 bpm, no pericardial effusion; LV thrombus resolved otherwise no significant interval changes from prior (05/16/24). - Patient underwent RHC during last hospitalization (08/17/24) showing mild pHTN. - Follows with [facility]. Other Chronic Medical Conditions: - CAD s/p CABG (2019) and Balloon Angioplasty (2020): Follows with outside cardiology. - Atrial Fibrillation, History of Complete Heart Block s/p PPM, History of LV Apical Thrombus: LV apical thrombus incidentally found on echo 01/2024 while patient was on Eliquis. Patient started on Warfarin; no LV thrombus noted on most recent echo (07/12/2024). On ASA, metoprolol succinate 25 mg daily (rate control) and warfarin for anticoagulation. No cardioversion planned with recent CVA. Follows with [facility]. - SLE, Fibromyalgia: Follows with rheumatology. - HLD: Pitavastatin, Zetia. - Hypothyroidism: Levothyroxine. - Chronic Normocytic Anemia: Stable on labs 11/2024. - EWELINA: Follows with sleep medicine; has CPAP at home that she has not been using for awhile. Useshome baseline 2L O2 at night. - Osteopenia, History of T12 Burst Fracture: On no specific osteopenia treatment. DEXA due 01/2025. - Anxiety, Depression: Continue current medication regimen. - GERD: Continue current medications. - OA: Conservative management. - Recurrent Aphthous Ulcer, Drug-Induced Xerostomia: Conservative management. - Allergies, Gustatory Rhinitis: Continue current regimen. - Voice Hoarseness: Has established with ENT; she plans on obtaining a follow-up appointment eventually. Also established with voice therapy, however, unfortunately not stimulable. . - GUSM: History of vaginal atrophy, urinary urgency, frequency, incontinence. - CKD: Likely from diabetic nephropathy, creatinine <1.0 at baseline. - RLS: Gabapentin as above. HCM - Overdue for mammogram (previously ordered but , will re-order) and DEXA due in 01/2025, will order. Return to clinic 02/02/2025 for previously scheduled appointment, or sooner if needed. Alisa Kunz DO [1] Current Outpatient Medications on File Prior [...] with breakfast. Do not crush,chew, or split. Auryylytals-Qxyiczaov-Asvxvw (Trelegy Ellipta) 200-62.5-25 MCG/ACT aerosol powder Inhale 1 puff every morning. 60 each 0 folic acid (Folvite) 1 MG tablet Taking [...] Max tdd 30 units 30 mL 2 ipratropium (Atrovent) 0.06 % nasal spray Administer 2 sprays into each nostril 4 times a day. 15 mL 12 Lancets misc Use twice a day to calibrate cgm Dx E10.65 100 each 3 latanoprost (Xalatan) 0.005 % ophthalmic solution Administer 1 drop into both eyes nightly. levothyroxine (Synthroid, Levoxyl) 125 MCG tablet Take 1 tablet (125 mcg) by mouth 1 (one) time each day before breakfast. 90 tablet 3 lidocaine (Xylocaine) 2 % solution Take 5 mL by mouth as needed for mild pain. Swish and spit: Every 4 hours as needed. 100 mL 0 metoprolol succinate XL (Toprol-XL) 25 MG 24 [...] capsule Take 1 capsule by mouth daily. [] spironolactone (Aldactone) 25 MG tablet Take 0.5 [...] with your warfarin pharmacist. 30 tablet 0 acetaminophen (Tylenol) 500 MG tablet Take 2 [...] mouth 2 times a day. 120 capsule 0 Glucagon, rDNA, (Glucagon Emergency) 1 MG kit 1 mg as needed. HumaLOG KWIKPEN 100 UNIT/ML injection pen Inject 3 Units under the skin 3 times a day with meals. hydroxychloroquine (Plaquenil) 200 MG tablet Take 1 tablet by mouth nightly. latanoprost (Xalatan) 0.005 % ophthalmic solution Administer 1 drop into both eyes nightly. levothyroxine (Synthroid, Levoxyl) 125 MCG tablet Take 1 tablet by mouth daily with breakfast. mycophenolate (Cellcept) 500 MG tablet Take 2 tablets by mouth 2 times a day. nitroglycerin (Nitrostat) 0.[address] 1 tablet under the tongue every 5 minutes as needed. Pitavastatin Calcium 4 MG tablet Take 1 tablet by mouth daily. Toujeo SoloStar 300 UNIT/ML injection pen (1 UNIT DIAL) Inject 6 Units under the skin 2 times a day. Trelegy Ellipta 200-62.5-25 MCG/ACT aerosol powder Take 1 puff by mouth daily. Urine Glucose-Ketones Test (Keto-Diastix) strip 1 strip by In Vitro route daily. Warfarin Sodium (warfarin, Coumadin, intermittent dosing) Take as directed per After Visit Summary. [DISCONTINUED] lisinopril 20 MG tablet Take 1 tablet (20 mg total) by mouth 1 (one) time each day. Take one tablet each morning 90 tablet 3 No current facility-administered medications on file prior to visit. documented in this encounter Plan of Treatment Upcoming Encounters Date Type Department Care Team (Late st Contact Info) Description 01/06/2025 2:00 PM EDT Office Visit [facility] [address] [place] [phone] Lavern Shoemaker MD [address] [place], [place] [phone] 01/12/2025 1:10 PM EST Office Visit [facility] [address] [place] [address] Noris Yee MD [address] [facility] [address] [place] [address] 01/12/2025 2:00 PM EST Office Visit [facility] [address] [place] [address] Ezra Fine MD [address] [place] [address] 01/27/2025 10:00 AM EST Office Visit [facility] [address] [place] [address] Sujit Cole, YAMILET [address] [place] [address] 02/02/2025 8:40 AM EST Office Visit [facility] [address] [place] [phone] Alisa Kunz, [address] [place] [address] 02/09/2025 12:20 PM EST Office Visit [facility] [address] [place] [phone] Anne-Marie Kolb, HEMOTHERAPIST [address] [facility] [address] [place] [address] 04/18/2025 2:40 PM EST Office Visit [facility] [address] [place] [address] Anne-Marie Kolb, HEMOTHERAPIST [address] [facility] [address] [place] [address] Scheduled Orders Name Type Priority Associated Diagnoses Orde r Schedule Mammography Breast Screening Tomosynthesis Bilateral Imaging Routine Encounter for screening mammogram for breast cancer Expected: 12/10/2024 (Approximate), Expires: 06/13/2026 Dexa Bone Density Imaging Routine Osteopenia, unspecified location Expected: 12/10/2024 (Approximate), Expires: 06/13/2026 Scheduled Referrals Name Type Priority Associated Diagnoses Order Schedule Ambulatory referral to Dentistry Outpatient Referral Routine Closed fracture of tooth with delayed healing, subsequent encounter 1 Occurrences starting 12/06/2024 until 06/09/2026 Ambulatory referral to Neurology Outpatient Referral Routine Cerebrovascular accident (CVA) due to embolism of precerebral artery ([facility]) 1 Occurrences starting 12/06/2024 until 06/09/2026 documented as of this encounter Procedures Procedure Name Priority Date/Time Associated Diagnosis Comments POCT GLUCOSE Routine 12/06/2024 11:42 AM EDT Type 1 diabetes mellitus with other specified complication ([facility]) documented in this encounter Results * VAS US Venous Duplex Upper Extremity Unilateral Left (12/07/2024 12:18 PM EDT) Anatomical Region Laterality Modality Upper Extremities, Vascular Left Ultr asound Impressions 12/08/2024 10:59 AM EDT Left: Abnormal study; no evidence of acute DVT is identified. Superficial venous thrombus is demonstrated in the cephalic vein as described above. This is a change as compared to the previous exam. COMMUNICATION: Per this written report. Preliminary report signed by Danuta Magallanes RVT on 12/07/2024 1:18 PM By electronically signing this report, I, the attending physician, attest that I have personally reviewed the images/data for the above examination(s) and I agree with the final edited report. Drafted by Danuta Magallanes RVT on 12/07/2024 1:12 PM Final report signed by Chris Kaba MD on 12/08/2024 10:59 AM Narrative 12/08/2024 10:59 AM EDT CLINICAL INDICATION: Acute limb swelling. TECHNIQUE: Non-invasive, real time duplex exam of the upper extremity venous circulation with Doppler ultrasonic waveform and spectral analysis was performed. COMPARISON: Venous duplex performed on 09/08/2024. Left: Normal study; no evidence of acute DVT is identified. FINDINGS: Right: Venous duplex demonstrates a compressible and augmentable subclavian vein. Imaged for comparison purposes. Left: Venous duplex demonstrates compressible IJV, subclavian, axillary, brachial, basilic and cephalic (above the ACF) veins. Hypoechoic, occlusive thrombus is demonstrated in the cephalic vein (at and below the ACF) which, is dilated and noncompressible. The venous spectral analysis demonstrates a spontaneous, phasic and augmentable flow signal. Procedure Note Chris Kaba MD - 12/08/2024 CLINICAL INDICATION: Acute limb swelling. TECHNIQUE: Non-invasive, real time duplex exam of the upper extremity venouscirculation with Doppler ultrasonic waveform and spectral analysis wasperformed. COMPARISON: Venous duplex performed on 09/08/2024. Left: Normal study; no evidence of acute DVT is identified. FINDINGS: Right: Venous duplex demonstrates a compressible and augmentablesubclavian vein. Imaged for comparison purposes. Left: Venous duplex demonstrates compressible IJV, subclavian, axillary,brachial, basilic and cephalic (above the ACF) veins. Hypoechoic,occlusive thrombus is demonstrated in the cephalic vein (at and below theACF) which, is dilated and noncompressible. The venous spectral analysisdemonstrates a spontaneous, phasic and augmentable flow signal. IMPRESSION: Left: Abnormal study; no evidence of acute DVT is identified. Superficialvenous thrombus is demonstrated in the cephalic vein as described above.This is a change as compared to the previous exam. COMMUNICATION: Per this written report. Preliminary report signed by Danuta Magallanes RVT on 12/07/2024 1:18 PM By electronically signing this report, I, the attending physician, attestthat I have personally reviewed the images/data for the aboveexamination(s) and I agree with the final edited report. Drafted by Danuta Magallanes RVT on 12/07/2024 1:12 PM Final report signed by Chris Kaba MD on 12/08/2024 10:59 AM us Alisa L Ze DO CV VASCULAR PROCEDURES Final R esult * VAS US Venous Duplex Lower Extremity Bilateral (12/07/2024 11:58 AM EDT) Anatomical Region Laterality Modality Lower Extremities Bilateral Ultrasound Impressions 12/08/2024 10:59 AM EDT Right: Normal study; no evidence of acute DVT is identified. Left: Normal study; no evidence of acute DVT is identified. COMMUNICATION: Per this written report. Preliminary report signed by Danuta Magallanes RVT on 12/07/2024 1:09 PM By electronically signing this report, I, the attending physician, attest that I have personally reviewed the images/data for the above examination(s) and I agree with the final edited report. Drafted by Danuta Magallanes RVT on 12/07/2024 1:07 PM Final report signed by Chris Kaba MD on 12/08/2024 10:59 AM Narrative 12/08/2024 10:59 AM EDT CLINICAL INDICATION: Acute limb swelling. TECHNIQUE: Non-invasive, real time duplex exam of the lower extremity venous circulation with Doppler ultrasonic waveform and spectral analysis was performed. COMPARISON: None. FINDINGS: Technically difficult study due to patient positioning and vessel size. Right: Venous duplex demonstrates compressible common femoral, femoral, popliteal, posterior tibial and peroneal veins. The venous spectral analysis demonstrates a spontaneous, phasic, augmentable and nonpulsatile flow signal. Left: Venous duplex demonstrates compressible common femoral, femoral, popliteal, posterior tibial and peroneal veins. The venous spectral analysis demonstrates a spontaneous, phasic, augmentable and nonpulsatile flow signal. Procedure Note Chris Kaba MD - 12/08/2024 CLINICAL INDICATION: Acute limb swelling. TECHNIQUE: Non-invasive, real time duplex exam of the lower extremity venouscirculation with Doppler ultrasonic waveform and spectral analysis wasperformed. COMPARISON: None. FINDINGS: Technically difficult study due to patient positioning andvessel size. Right: Venous duplex demonstrates compressible common femoral, femoral,popliteal, posterior tibial and peroneal veins. The venous spectralanalysis demonstrates a spontaneous, phasic, augmentable and nonpulsatileflow signal. Left: Venous duplex demonstrates compressible common femoral, femoral,popliteal, posterior tibial and peroneal veins. The venous spectralanalysis demonstrates a spontaneous, phasic, augmentable and nonpulsatileflow signal. IMPRESSION: Right: Normal study; no evidence of acute DVT is identified. Left: Normal study; no evidence of acute DVT is identified. COMMUNICATION: Per this written report. Preliminary report signed by Danuta Magallanes RVT on 12/07/2024 1:09 PM By electronically signing this report, I, the attending physician, attestthat I have personally reviewed the images/data for the aboveexamination(s) and I agree with the final edited report. Drafted by Danuta Magallanes RVT on 12/07/2024 1:07 PM Final report signed by Chris Kaba MD on 12/08/2024 10:59 AM us Alisa Kunz DO CV VASCULAR PROCEDURES Final R esult * (ABNORMAL) POCT glucose (12/06/2024 11:42 AM EDT) POCT Glucose 39(A) 74 - 99 mg/dL [facility] Test Strip Lot Number [id number] [facility] Test Strip Expiration 01/25/2026 [facility] Blood Venous blood specimen / Unknown 12/06/2024 11:42 AM EDT us Alisa Kunz DO POINT OF CARE TEST ENTER/EDIT ORDERABLES Final Result [facility] [address] [place] [address] documented in this encounter Visit Diagnoses Diagnosis Type 1 diabetes mellitus with other specified complication (CMS/HCC)- Primary Closed fracture of tooth with delayed healing, subsequent encounter Cerebrovascular accident (CVA) due to embolism of right posterior cerebral artery Cerebrovascular accident (CVA) due to embolism of precerebral artery Limb swelling Swelling of limb Osteopenia, unspecified location Encounter for screening mammogram for breast cancer Limb swelling Swelling of limb Limb swelling Swelling of limb documented in this encounter Additional Health Concerns Assessment Noted Time PHQ-9 Depression Total Score: 0 09/09/19 25 11:19 AM EDT A fall risk assessment has been complete d for the patient 12/06/2024 11:29 AM EDT A Body Mass Index follow-up plan has been documented for the patient 12/06/2024 12:28 PM EDT documented as of this encounter Care Teams Child Support Agent Relationship Specialty Start Date End Date Pcp, No [address] [place] [address] PCP - General Family Medicine 11/21/23 12/06/24 Alisa Kunz DO [address] [place] [phone] Internal Medicine 11/21/23 Kodi Bustos DO [address] [phone] Surgeon Cardiothoracic Surgery 11/06/22 Sujit Arriola MD [address] [place] [phone] Consulting Physician Pulmonary Disease 11/06/22 Sujit Reyes MD [address] [facility] [address] [place] [address] Referring Physician 12/04/22 Zee Lazar DO [address] [place] [address] Resident 09/08/24 documented as of this encounter
--- OUTSIDE RECORDS SUMMARY | 2024-12-07 11:32 | XMS_ITS | Encounter Summary ---
Author Organization [facility] Address [address] [place] [address] Care Team Providers Care Plant Propagator Name Role Phone Alisa Kunz DO Unavailable [phone] Kodi Bustos DO Unavailable [phone] Sujit Arriola MD Unavailable [phone] Sujit Reyes MD Unavailable [phone] Zee Lazar DO Unavailable [phone] Alisa Kunz DO Primary Care Provider [phone] Reason for Referral * Imaging (Urgent) - Closed Specialty Diagnoses / Procedures Referred By Contac t Referred To Contact Cardiology Diagnoses Limb swelling Procedures VAS US Venous Duplex Lower Extremity Bilateral Alisa Kunz DO [address] [address] Phone: tel: fax: Referral ID Status Reason Start Date Expiration Date V isits Requested Visits Authorized [id number] Closed Perform Procedure 12/06/2024 06/07/2026 1 1 Reason for Visit * Imaging (Urgent) - Closed Specialty Diagnoses / Procedures Referred By Contac t Referred To Contact Cardiology Diagnoses Limb swelling Procedures VAS US Venous Duplex Lower Extremity Bilateral Alisa Kunz DO [address] [address] Phone: tel: fax: Referral ID Status Reason Start Date Expiration Date V isits Requested Visits Authorized [id number] Closed Perform Procedure 12/06/2024 06/07/2026 1 1 Encounter Details Date Type Department Care Team (Latest Contact Info) Description 12/07/2024 11:32 AM EDT Hospital Encounter [facility] [address] [address] Limb swelling Discharge Disposition: Home or Self Care Social [...] Recorded Patient Health Questionnaire-2 Score 0 10/27/2024 [facility] [place] of Occupat ional Health - Occupational Stress [...] living in a fpc (including now)? No 11/22/2024 [facility] Utilities Answer Date Recorded In the past 12 months has th e [employer], gas, oil, or water company threatened [...] first t anselmo in the morning (EYE-NEUROSURGICAL NURSE) to steady your nerves or to [...] PM EDT documented as of this encounter Medications at [...] lupus erythematosus (SLE) in adult ([facility]) Take 2 tablets by mouth 2 times [...] with your warfarin pharmacist. 30 tablet 07/15/2024 acetaminophen (Tylenol) 500 MG tablet Take 2 tablets by mouth every 6 hours as needed. 5 aspirin 81 MG EC tablet Take 1 [...] capsule for a total of 80mg daily. 5 ezetimibe (Zetia) 10 MG tablet Take 1 [...] 3 times a day with meals. 08/28/2024 5 hydroxychloroquine (Plaquenil) 200 MG tabletIndications:S ystemic lupus erythematosus (SLE) in adult ([facility]) Take 1.5 tablets by mouth daily. 45 [...] tdd 30 units 30 mL 2 08/04/2024 5 ipratropium (Atrovent) 0.06 % nasal sprayIndications:Gu statory rhinitis Administer 2 sprays into each nostril 4 times a day. 15 mL 12 11/15/2024 5 latanoprost (Xalatan) 0.005 % ophthalmic solution Administer [...] times a day. 473 mL 11 10/07/2024 5 Toujeo SoloStar 300 UNIT/ML injection pen (1 UNIT DIAL) Inject 6 Units under the skin 2 times a day. 08/28/2024 5 Trelegy Ellipta 200-62.5-25 MCG/ACT aerosol powder Take 1 puff by mouth daily. 11/19/2024 Warfarin Sodium (warfarin, Coumadin, intermittent dosing) Take as directed per After Visit Summary. 11/29/2024 documented as of this encounter Plan of Treatment Upcoming Encounters Date Type Department Care Team (Late st Contact Info) Description 01/06/2025 2:00 PM EDT Office Visit [facility] Medicine Specialties [address] [place] [phone] Lavern Shoemaker MD [address] [phone] 01/12/2025 1:10 PM EST Office Visit [facility] Medicine Specialties [address] [place] [address] Noris Yee MD [address] [place] [address] 01/12/2025 2:00 PM EST Office Visit [facility] [address] [place] [address] Ezra Fine MD [address] [place] [address] 01/27/2025 10:00 AM EST Office Visit [facility] [address] [place] [address] Sujit Cole, GREIGE MENDER [address] [place] [address] 02/02/2025 8:40 AM EST Office Visit [facility] Internal Medicine [address] [place] [phone] Alisa Kunz DO [address] [place] [phone] 02/09/2025 12:20 PM EST Office Visit [facility] Endocrinology [address] [place] [phone] Anne-Marie Kolb, GREIGE MENDER [address] [place] [address] 04/18/2025 2:40 PM EST Office Visit [facility] Endocrinology [address] [place] [address] CortesAnne-Marie houston, GREIGE MENDER [address] [place] [address] documented as of this encounter Procedures Procedure Name Priority Date/Time Associated Diagnosis Comments VAS US VENOUS DUPLEX LOWER EXTREMITY BILATERAL STAT 12/07/2024 11:58 AM EDT Limb swelling documented in this encounter Results * VAS US Venous Duplex Lower Extremity [...] Chris Kaba MD on 12/08/2024 10:59 AM Alisa Kunz DO CV VASCULAR PROCEDURES Final R esult documented in this encounter Visit Diagnoses Diagnosis Limb swelling Swelling of limb documented in [...] as of this encounter Care Teams Plant Propagator Relationship Specialty Start Date End Date Alisa Kunz DO [address] [place] [address] PCP - General Internal Medicine 12/07/24 Alisa Kunz DO [address] [place] [address] Internal Medicine 11/21/23 Kodi Bustos DO [address] [address] Surgeon Cardiothoracic Surgery 11/06/22 Sujit Arriola MD [address] [place] [address] Consulting Physician Pulmonary Disease 11/06/22 Sujit Reyes MD [address] [place] [address] Referring Physician 12/04/22 Zee Lazar DO [address] [place], [place] [phone] Resident 09/08/24 documented as of this encounter
--- OUTSIDE RECORDS SUMMARY | 2024-12-07 11:33 | XMS_ITS | Encounter Summary ---
Author Organization [facility] Address [address] [place] [address] Care Team Providers Care Chief Ii Dispatcher Name Role Phone Alisa Kunz DO Unavailable [phone] Kodi Bustos DO Unavailable [phone] Sujit Arriola MD Unavailable [phone] Sujit Reyes MD Unavailable [phone] Zee Lazar DO Unavailable [phone] Alisa Kunz DO Primary Care Provider [phone] Reason for Referral * Imaging (Urgent) - Closed Specialty Diagnoses / Procedures Referred By Soac mike Referred To Contact Cardiology Diagnoses Limb swelling Procedures VAS US Venous Duplex Upper Extremity Unilateral Left VAS US Venous Duplex Upper Extremity Bilateral Alisa Kunz DO [address] [address] Phone: tel: fax: Referral ID Status Reason Start Date Expiration Date V isits Requested Visits Authorized [id number] Closed Perform Procedure 12/06/2024 06/07/2026 1 1 Reason for Visit * Imaging (Urgent) - Closed Specialty Diagnoses / Procedures Referred By Contac t Referred To Contact Cardiology Diagnoses Limb swelling Procedures VAS US Venous Duplex Upper Extremity Unilateral Left VAS US Venous Duplex Upper Extremity Bilateral Alisa Kunz DO [address] [place] [address] Phone: tel: fax: Referral ID Status Reason Start Date Expiration Date V isits Requested Visits Authorized [id number] Closed Perform Procedure 12/06/2024 06/07/2026 1 1 Encounter Details Date Type Department Care Team (Latest Contact Info) Description 12/07/2024 11:33 AM EDT - 12/07/2024 11:59 PM EDT Hospital Encounter [facility] [address] [place] [address] Limb swelling Discharge Disposition: Home or Self [...] Score 0 10/27/2024 [facility] [place] of Occupat ional Health - Occupational Stress [...] in a fpc (including now)? No 11/22/2024 [facility] Utilities Answer Date Recorded In the past 12 months has [employer], gas, oil, or water [place] threatened to [...] first t anselmo in the morning (EYE-SOLVENT PLANT OPERATOR) to steady your nerves or [...] tabletIndications:S ystemic lupus erythematosus (SLE) in adult ([facility]) Take 2 tablets by mouth [...] Take 1 tablet by mouth every evening. 5 cetirizine (ZyrTEC) 10 MG tablet Take 1 [...] 2 times a day. 120 capsule 11/29/2024 5 HumaLOG KWIKPEN 100 UNIT/ML injection pen Inject 3 Units under the skin 3 times a day with meals. 08/28/2024 5 hydroxychloroquine (Plaquenil) 200 MG tabletIndications:S ystemic lupus erythematosus (SLE) in adult ([facility]) Take 1.5 tablets by mouth daily. 45 tablet 5 09/15/2024 5 insulin glargine (Toujeo SoloStar) 300 UNIT/ML [...] by mouth 2 times a day. 08/27/2024 5 Pitavastatin Calcium 4 MG tablet Take 1 tablet by mouth daily. 11/15/2024 5 sucralfate (Carafate) 1 GM/10ML suspension Take 10 [...] Description 01/06/2025 2:00 PM EDT Office Visit [facility] Medicine Specialties [address] [place] [address] Lavern Shoemaker MD [address] [place], [place] [phone] 01/12/2025 1:10 PM EST Office Visit [facility] Medicine Specialties [address] [place] [address] Noris Yee MD [address] [place] [address] 01/12/2025 2:00 PM EST Office Visit [facility] [address] [place] [address] Ezra Fine MD [address] [place] [phone] 01/27/2025 10:00 AM EST Office Visit [facility] [address] [place] [address] Sujit Cole APRN [address] [place] [address] 02/02/2025 8:40 AM EST Office Visit [facility] Internal Medicine [address] [place] [phone] Alisa Kunz DO [address] [place] [address] 02/09/2025 12:20 PM EST Office Visit [facility] Endocrinology [address] [place] [phone] Anne-Marie Kolb, BREAD MOLDER [address] [place] [address] 04/18/2025 2:40 PM EST Office Visit [facility] Endocrinology [address] [place] [phone] Anne-Marie Kolb L, BREAD MOLDER [address] [facility] [address] [place] [address] documented as of this encounter Procedures Procedure Name Priority Date/Time Associated Diagnosis Comments VAS US VENOUS DUPLEX UPPER EXTREMITY UNILATERAL STAT 12/07/2024 12:18 PM EDT Limb swelling documented in this encounter [...] documented as of this encounter Care Teams Chief Ii Dispatcher Relationship Specialty Start Date End Date Alisa Kunz DO [address] [place] [phone] PCP - General Internal Medicine 12/07/24 Alisa Kunz DO [address] [place] [phone] Internal Medicine 11/21/23 Kodi Bustos DO [address] [place] [phone] Surgeon Cardiothoracic Surgery 11/06/22 Sujit Arriola MD [address] [place] [address] Consulting Physician Pulmonary Disease 11/06/22 Sujit Reyes MD [address] [place] [address] Referring Physician 12/04/22 Zee Lazar DO [address] [place], [place] [address] Resident 09/08/24 documented as of this encounter
--- OUTSIDE RECORDS SUMMARY | 2024-12-21 16:24 | XMS_ITS | Encounter Summary ---
Author Organization [facility] Address [address] [place] [address] Care Team Providers Care Vegetable Sorter Name Role Phone Alisa Kunz DO Unavailable [phone] Kodi Bustos DO Unavailable [phone] Sujit Arriola MD Unavailable [phone] Sujit Reyes MD Unavailable [phone] Zee Lazar DO Unavailable [phone] Alisa Kunz DO Primary Care Provider [phone] Milli KELLEY RN, Fili Noonan Unavailable [phone] Reason for Referral * Consultation (Routine) - Authorized Specialty Diagnoses / Procedures Referred By Contac t Referred To Contact Diagnoses Acute on chronic heart failure with preserved ejection fraction Sharath Monae MD [address] [place] [address] Phone: tel: fax: Referral ID Status Reason Start Date Expiration Date V isits Requested Visits Authorized [id number] Authorized 12/23/2024 06/24/2026 1 1 * Home Health (Routine) - Authorized Specialty Diagnoses / Procedures Referred By Contac t Referred To Contact Home Health Services / Case Management Diagnoses Pleural effusion Sharath Monae MD [address] [place] [address] Phone: tel: fax: Referral ID Status Reason Start Date Expiration Date Visits Requested Visits Authorized [id number] Authorized Specialty Services Required 06/24/2026 999 999 Reason for Visit * Reason Comments Chest Pain * Auth/Cert (Routine) Specialty Diagnoses / Procedures Referred By Contac t Referred To Contact Diagnoses Decompensated heart failure Andra Aquino, DO [address] [place] [address] Phone: tel: fax: [facility] [address] [place] [address] Phone: tel: Referral ID Status Reason Start Date Expiration Date Visits Re quested Visits Authorized [id number] 1 1 Encounter Details Date Type Department Care Team (Late st Contact Info) Description 12/21/2024 4:24 PM EDT - 12/23/2024 2:10 PM EDT Hospital Encounter [facility] [address] [place] [address] Yanet Duff MD [address] [place] [address] Andra Aquino, DO [address] [place] [address] Ynes Thompson MD [address] [place] [address] Sharath Monae MD [address] [place] [address] Pleural effusion (Primary Dx); Acute on chronic congestive heart failure, unspecified heart failure type; Type 1 diabetes mellitus with hyperglycemia; Acute on chronic heart failure with preserved ejection fraction Discharge Disposition: Home or Self Care Social [...] Answer Date Recorded Patient Health Questionnaire-2 Score 2 12/27/2024 [facility] Occup[facility] [...] afraid of your partner or ex-partner? No 12/22/2024 Within the last year, have y ou been humiliated or emotionally abused in other ways by your partner or ex-partner? No Within the last year, have y ou been kicked, hit, slapped, or otherwise physically hurt by your partner or ex-partner? No 12/22/2024 Within the last year, have y ou been raped or forced to have any kind of sexual activity by your partner or ex-partner? No 12/22/2024 AUDIT-C Answer Date Recorded Q1: How often [...] the money to buy more. Never true 12/23/19 25 Within the past 12 months, t he food you bought just didn't last and you didn't have money to get more. Never true 12/22/2024 PRAPARE - Transportation Answer Date Re corded In the past 12 months, has l ack of transportation kept you from medical appointments or from getting medications? No 12/08 In the past 12 months, has l ack of transportation kept you from meetings, work, or from getting things needed for daily living? No 12/22/2024 Housing Stability Vital Sign Answer Hong e Recorded In the last 12 months, was t here a time when you were not able to pay the mortgage or rent on time? No 12/22/2024 In the past 12 months, how m any times have you moved where you were living? 0 12/22/2024 At any time in the past 12 m [facility], were you homeless or living in a detention (including now)? No 12/22/2024 [facility] Utilities Answer Date Recorded In the past 12 months has th e electric, gas, oil, or water company threatened to shut off services in your home? No 12/22/2024 CAGE ASSESSMENT Answer Date Recorded Cage unable to access Not on file 12/27/2024 Maximum number of drinks you had on a given occasion in the last month? 0 drinks 12/27/2024 How many alcoholic Beverages do you typically drink in a week? 0 - 7 per week 12/27/2024 Have you ever felt you should CUT down on your d rinking? 0 12/27/2024 Have you been ANNOYED by peo ple criticizing your drinking? 0 12/27/2024 Have you felt GUILTY about your drinking? 0 12/27/2024 Have you had a drink first t anselmo in the morning (EYE-BE[employer] RO[employer]) to steady your nerves or to get rid of a hangover? 0 12/27/2024 CAGE Questionnaire Score 0 025 PHQ-2A Answer [...] Sign Reading Time Taken Comments Blood Pressure 153/79 12/23/2024 11:20 AM EDT Pulse 60 12/23/2024 11:20 AM EDT Temperature 36.6 C (97.8 F) 12/23/2024 11:20 AM EDT Respiratory Rate 16 12/23/2024 11:20 AM EDT Oxygen Saturation 94% 12/23/2024 11:20 AM EDT Inhaled Oxygen Concentration - - Weight 65.5 kg (144 lb 6.4 oz) 12/23/2024 6:00 AM EDT Height 162.6 cm (5' 4 ) 12/21/2024 4:30 PM EDT Body Mass Index 24.79 12/21/2024 4:30 PM EDT documented in this encounter Functional Status * Over the past 2 weeks, how often have you been bothered by any of the following problems? Question Answer Date of Assessment Author Little interest or pleasure in doing things Several days 12/27/2024 9:36 AM EDT Ruthie Meléndez Feeling down, depressed, or hopeless Several days 12/27/2024 9:36 AM EDT Ruthie Meléndez Patient Health Questionnaire -2 Score 2 12/27/2024 9:36 AM EDT Ruthie Meléndez * Calculated C-SSRS Risk Score (Lifetime/Recent) Answer Date of Assessment Author No Risk Indicated 12/27/2024 12:46 PM EDT Yoselin Wade * Question Answer Date of Assessment Author 1. Wish to be (Past 1 Month) No 025 12:46 PM EDT Yoselin Li 2. Non-Specific Active Suici dillon Thoughts (Past 1 Month) No 12/27/2024 12:46 PM EDT Uzair Li 6. Suicidal Behavior (Lifetime) No 12:46 PM EDT Yoselin Li documented as of this encounter Discharge Instructions * Discharge Instructions* Shaarth Monae MD - 12/23/2024 11:11 AM EDT Diet Follow a heart healthy diet. And make sure to limit the salt (sodium) in your diet. Limit canned, dried, packaged, and fast foods. Don't add salt to your food. Season foods with herbs instead of salt. Ask that your meals have no added salt when you eat out. Talk with your provider before using salt substitutes. They often have potassium in them. This may not be good for your health. This will depend on how well your kidneys are working and what medicines you???re taking. Some people need extra potassium. Others don???t. Medicine Take your medicines exactly as prescribed. Learn the names and purpose of each of your medicines. Keep an accurate medicine list and current dosages with you at all times. Don't skip doses. If you miss a dose of your medicine, take it as soon as you remember. If you miss a dose and it's almost timefor your next dose, just wait and take your next dose at the normal time. Don't take a double dose. If you are unsure, call your provider's office. Make sure not to mix up your medicines or forget what you've taken the same day. Refill your prescriptions before you run out of medicine. Talk with your health care provider if you have trouble with the cost of your medicines. During this admission - we increased your lasix dose to 60 mg twice a day - Started you on losartan 25 mg for high blood pressure Weight monitoring Weigh yourself every day. A sudden weight gain can mean your heart failure is getting worse. Weigh yourself at the same time of day and in the same kind of clothes. Ideally, weigh yourself first thing in the morning after you empty your bladder, but before you eat breakfast. Your provider will showyou how to track your weight. Call your provider if you have a sudden, unexpected increase in your weight. . This is a sign that you are retaining more fluid than you should be. Clues to weight gain includechecking your ankles for swelling, or noticing you are short of breath when you lie down. Follow-up care Follow up with your primary care provider When to call your doctor Contact your health care provider right away if: You have sudden weight gain. You have trouble breathing that's not related to being active. There's new or increased swelling of your legs or ankles. You have swelling or pain in your abdomen (belly). You have trouble breathing at night. This means waking up short of breath or needing more pillows to breathe. You have frequent coughing that doesn't go away. You're feeling much more tired than usual. Call 911 Call 911 right away if: You are severely short of breath, such that you can't catch your breath even while resting. You have severe chest pain that doesn't get better with rest or nitroglycerin. You have pink, foamy mucus with cough and shortness of breath. You have an ongoing rapid or irregular heartbeat. You are passing out or fainting. You have stroke symptoms, such as sudden numbness or weakness on one side of your face, arm, or legor sudden confusion, trouble speaking or vision changes. documented in this encounter Medications at Time [...] 07/16/2024 furosemide (Lasix) 40 MG tablet Take 1.5 tablets by mouth 2 times a day. 90 tablet 12/23/2024 gabapentin (Neurontin) 300 MG capsule Take 2 [...] 4 hours as needed. 100 mL 11/15/2024 losartan (Cozaar) 25 MG tablet Take 1 tablet by mouth daily. 30 tablet 12/24/2024 metoprolol succinate XL (Toprol-XL) 25 MG 24 [...] with your warfarin pharmacist. 30 tablet 07/15/2024 insulin glargine (Toujeo SoloStar) 300 UNIT/ML injection pen (1 UNIT DIAL)Indications:Ty pe 1 diabetes mellitus with hyperglycemia Inject 6 Units under the skin 2 times a day. 12/23/2024 5 insulin lispro (HumaLOG KWIKPEN) 100 UNIT/ML injection penIndications:Type 1 diabetes mellitus with hyperglycemia Inject 2-6 units before meals plus 1:60>150. Max tdd 30 units 30 mL 2 08/04/2024 5 documented as of this encounter Miscellaneous Notes * Hospital Course - Sharath Monae MD - 12/23/2024 2:10 PM EDT 74 y.o. female with past medical history of COPD on 2L oxygen, HFpEF, SLE, A fib, prior LV thrombuson warfarin, recurrent right pleural effusion requiring thoracentesis. Patient was admitted from 11/20 - 11/29 for Acute ischemic stroke in Right temporal lobe. Hospital course complicated by acute on chronic hypoxic respiratory failure and hospital-acquired pneumonia. She was treated with vancomycinZosyn as well as IV bumetanide was given for diuresis. Patient was discharged to [facility] for subacute rehab and she just returned home for 1 day. Now, presented with chest pressure and increased shortness of breath, she is admitted and treated for volume overload, she received lasix 80 mg IV daily for 2 days with improvement of symptoms. She was evaluated by PT and was ok to discharge home with home PT Volume overload Acute on chronic heart failure with moderately reduced ejection fraction - Last echo November 2024 EF 44% - Presented with chest heaviness, increased shortness of breath and lower limb edema - BNP 93487 which is of previous baseline - Chest x-ray on admission reviewed shows moderate-sized right-sided pleural effusion, small left pleural effusion and bilateral lower base atelectasis - On PO Lasix 80 mg daily at home - received IV lasix 80 mg x2 days with good response Plan - discharge on oral lasix 60 mg BID - follow with PCP - started on losartan 25 mg daily Recent ischemic stroke in Right temporal lobe - Patient was hospitalized from 11/20/2024 - 11/29/2024 for acute ischemic stroke in the right temporal lobe, thought to be cardioembolic. She was discharged to [facility] - Per neurology: Secondary stroke prophylaxis: Atorvastatin 40 mg, restarted warfarin and stopped aspririn History of Atrial Fibrillation, History of Complete Heart Block s/p PPM, History of LV Apical Thrombus Anticoagulated with warfarin - LV apical thrombus incidentally found on echo 01/2024 while patient was on Eliquis. Patient started on Warfarin; no LV thrombus noted on most recent echo (07/12/2024). - No cardioversion planned with recent CVA. Follows with [facility]. Echo on 11/20/24: EF 44%. No left ventricular mass or thrombus. Hypokalemia - replaced inpatient Type I DM with peripheral neuropathy - HbA1c : 8.7% - Continue insulin lantus 6 units BID - continue gabapentin and duloxetine - follow with PCP Chronic hypoxic respiratory failure secondary to COPD, bilateral chronic pleural effusions - on 2 L/min O2 at home - currently at baseline Chronic Medical Conditions: - CAD s/p CABG (2019) and Balloon Angioplasty (2020): Follows with [facility]. - SLE, Fibromyalgia: Follows with rheumatology. On CellCept and Plaquenil - HLD: Lipitor, Zetia. - Hypothyroidism: Levothyroxine. - EWELINA: Follows with sleep medicine; has CPAP at home that she has not been using for awhile. Useshome baseline 2L O2 at night. - Osteopenia, History of T12 Burst Fracture: On no specific osteopenia treatment. DEXA due 01/2025.On calcium with vitamin-D - Anxiety, Depression: Continue duloxetine - Allergies, Gustatory Rhinitis: Continue Zyrtec - RLS: Gabapentin as above. - Glaucoma: On Alphagan and xalatan eyedrops * Jackelyn Cazares, PharmD - 12/23/2024 1:09 PM EDT Images from the original note were not included. [id number] Warfarin IMPORTANT WARNING: Warfarin may cause severe [...] doctor or pharmacist will give you the streetcar motorman's patient information sheet (Medication Guide) when you begin treatment with warfarin and each time you refill your prescription. Read the information carefully and ask your doctor or pharmacist if you have any questions. You can also visit the Food and Drug Administration (FDA) website (https://www.fda.gov/downloads/Drugs/DrugSafety/zac298650.pdf) or the streetcar motorman's website to obtain the Medication Guide. Talk [...] amounts of vitamin K-containing food on a gctz-se-bfee basis. Do not eat large amounts of [...] of all of the prescription and nonprescription (nqpy-guf-isjvwkm) medicines, vitamins, minerals, and dietary supplements you [...] or pharmacist about specific clinical use. The [employer] represents that the information provided hereunder was formulated with a reasonable standard of care, and in conformity with professional standards in the field. The [employer] makes no representations or warranties, express or implied, including, but not limited to, any implied warranty of merchantability and/or fitness for a particular purpose, with respect to such information and specifically disclaims all such warranties. Users are advised that decisions regarding drug therapy are complex medical decisions requiring the independent, informed decision of an appropriate health medication care manager, and the information is provided for informational purposes only. The entire monograph for a drug should be reviewed for a thorough understanding of the drug's actions, uses and side effects. The [employer] does not endorse or recommend the use of any drug.The information is not a substitute for medical care. AHFS?? Patient Medication Information?. ?? Copyright, 2023. The [employer]??, [address], [address], [place], [place]. All Rights Reserved. Duplication for commercial use must be authorized by [facility]. Selected Revisions: August 22, 2016. AHFS?? Patient Medication Information?. ?? Copyright, 2024 * Progress Notes - Gale Anderson RN - 12/23/2024 11:32 AM EDT Case Management Discharge Note Doron Felipe 74 y.o. female CSN: [id number] Admission: 12/21/2024 4:24 PM Primary Problem: Decompensated heart failure Primary Data Center Architect: Primary Caregiver: Private caregiver Assistance Available at Discharge: Current Outpatient/Agency/Support Group: clinic(s), DME Availability of Care Givers (#Hours): 24 hours Family/Data Center Architect(s) Willingness Assessed to care for patient at home: Yes Family/Data Center Architect(s) Readiness Assessed to care for patient at home: Yes Housing Circumstances-Z Codes: Housing Circumstances (select all that apply): None Applicable Patient Referred to Financial or Community Resources: Discharge Facility/Level of Care Needs: Discharge Facility/Level of Care Needs: 1-Home or Self Care Patient's Choice of Community Agency(s): Patient's Choice of Community Agency(s): [facility] provides home O2 Patient/Family Anticipated Services at Transition: Patient/Family Anticipated Services at Transition: none DME/Equipment Needed after Discharge: Equipment Currently Used at Home: commode chair, grab bar, tub/shower, oxygen, raised toilet seat, shower chair, walker, rolling Equipment Needed After Discharge: none Readmission Within the Last 30 Days: Readmission Within the Last 30 Days: unable to assess Medicare Documentation: Medicare Second Notice?: (Pt is in observation status.) Follow-up: [place] [address] Follow up [facility]. Discharge Transportation: Transportation Anticipated: family or friend will provide Transportation Home at Discharge: Family/Friend will Provide Has discharge transport been arranged?: No What day is the transport expected?: 12/23/24 Follow Up Transport: Transportation Needed to Follow up Appoinments: Family/Friend will Provide Additional Comments: Per team patient is medically ready to discharge home today. CM met with patient to discuss overalldc needs. CM sent resumption Home Health referral to [facility]. Pt family/paid caregiver will provide transportation home. Gale Anderson RN * Shantal Anders RN - 12/23/2024 11:25 AM EDT Images from the original note were not included. [id number] Coping with Heart Failure It?s normal to feel sad or down at times when you?re living with heart failure. Some medicines can also affect your mood. Following your treatment plan may seem difficult at times. If you feel overwhelmed, just focus on one day at a time. Don?t be afraid to ask others for help when you need it. Ways to feel better Try not to withdraw from family and friends, even if you're finding it hard to talk to them. They can still be a good source of support. To feel better, you can also: ? Spend time doing things you enjoy. This may include taking part in a favorite hobby, meditating, praying, or spending time with people you care about. Find activities that make you happy. And make those a priority. ? Share what you learn about heart failure with the people in your life. Invite family members along when you visit your healthcare provider. This will help you feel supported. And it will help you discuss the care plan you've agreed upon with your provider. ? Think about joining a support group for people with heart failure. It may be easier to talk to people who know firsthand what you?re going through. They can offer advice and share stories. You may want to ask loved ones to join you for a meeting. Asking for help Having heart failure doesn?t mean that you have to feel bad all the time. Think about talking to your healthcare provider or a therapist if: ? You feel worthless or helpless, or are thinking about suicide. These are warning signs of depression. Treatment can help you feel better. When depression is under control, your overall health may also improve. ? You feel anxious about what will happen to your loved ones if your health gets worse. Taking careof legal arrangements, such as a living will and durable power of divorce attorney, can help you feel more secure about the future. ? You feel stressed or alone. Social support helps reduce stress and helps you stick with your healthy lifestyle changes. Without social support, you may end up back in the hospital. Last Reviewed Date: 2023 00:00:00 ?? [id number] [employer]. All rights reserved. This information is not intended as a substitute for professional medical care. Always follow your healthcare professional's instructions. * Discharge Summary - Sharath Monae MD - 12/23/2024 11:19 AM EDT Images from the original note were not included. Hospitalization Admit Date/Time: 12/21/2024 4:24 PM Admitting Attending: Andra Aquino Discharge Date: 12/23/2024 Discharge Attending Physician: Sharath Monae MD PCP name and Address: Alisa Kunz DO [address] [address] Referring provider name and address: No referring provider defined for this encounter. Chief Concern, Brief History of Present Illness, and Hospital Course 74 y.o. female with past medical history of COPD on 2L oxygen, HFpEF, SLE, A fib, prior LV thrombuson warfarin, recurrent right pleural effusion requiring thoracentesis. Patient was admitted from 11/20 - 11/29 for Acute ischemic stroke in Right temporal lobe. Hospital course complicated by acute on chronic hypoxic respiratory failure and hospital-acquired pneumonia. She was treated with vancomycinZosyn as well as IV bumetanide was given for diuresis. Patient was discharged to [facility] for subacute rehab and she just returned home for 1 day. Now, presented with chest pressure and increased shortness of breath, she is admitted and treated for volume overload, she received lasix 80 mg IV daily for 2 days with improvement of symptoms. She was evaluated by PT and was ok to discharge home with home PT Volume overload Acute on chronic heart failure with moderately reduced ejection fraction - Last echo November 2024 EF 44% - Presented with chest heaviness, increased shortness of breath and lower limb edema - BNP 33054 which is of previous baseline - Chest x-ray on admission reviewed shows moderate-sized right-sided pleural effusion, small left pleural effusion and bilateral lower base atelectasis - On PO Lasix 80 mg daily at home - received IV lasix 80 mg x2 days with good response Plan - discharge on oral lasix 60 mg BID - follow with PCP - started on losartan 25 mg daily Recent ischemic stroke in Right temporal lobe - Patient was hospitalized from 11/20/2024 - 11/29/2024 for acute ischemic stroke in the right temporal lobe, thought to be cardioembolic. She was discharged to [facility] - Per neurology: Secondary stroke prophylaxis: Atorvastatin 40 mg, restarted warfarin and stopped aspririn History of Atrial Fibrillation, History of Complete Heart Block s/p PPM, History of LV Apical Thrombus Anticoagulated with warfarin - LV apical thrombus incidentally found on echo 01/2024 while patient was on Eliquis. Patient started on Warfarin; no LV thrombus noted on most recent echo (07/12/2024). - No cardioversion planned with recent CVA. Follows with [facility]. Echo on 11/20/24: EF 44%. No left ventricular mass or thrombus. Hypokalemia - replaced inpatient Type I DM with peripheral neuropathy - HbA1c : 8.7% - Continue insulin lantus 6 units BID - continue gabapentin and duloxetine - follow with PCP Chronic hypoxic respiratory failure secondary to COPD, bilateral chronic pleural effusions - on 2 L/min O2 at home - currently at baseline Chronic Medical Conditions: - CAD s/p CABG (2019) and Balloon Angioplasty (2020): Follows with [facility]. - SLE, Fibromyalgia: Follows with rheumatology. On CellCept and Plaquenil - HLD: Lipitor, Zetia. - Hypothyroidism: Levothyroxine. - EWELINA: Follows with sleep medicine; has CPAP at home that she has not been using for awhile. Useshome baseline 2L O2 at night. - Osteopenia, History of T12 Burst Fracture: On no specific osteopenia treatment. DEXA due 01/2025.On calcium with vitamin-D - Anxiety, Depression: Continue duloxetine - Allergies, Gustatory Rhinitis: Continue Zyrtec - RLS: Gabapentin as above. - Glaucoma: On Alphagan and xalatan eyedrops Surgeries and Procedures Medication List .. acetaminophen 500 MG tablet Commonly known as: Tylenol Take 2 tablets by mouth every 6 hours as needed. acidophilus probiotic blend capsule Take 1 capsule by mouth daily. Blood Glucose Monitor System w/Device kit Test blood sugars twice a day to calibrate cgm. Dx E10.65 brimonidine 0.2 % ophthalmic solution Commonly known as: AlphaGAN P Administer 1 drop into both eyes nightly. calcium-vitamin D 500-200 MG-UNIT tablet Take 1 tablet by mouth daily. cetirizine 10 MG tablet Commonly known as: ZyrTEC Take 1 tablet by mouth every evening. * DULoxetine [address] capsule Commonly known as: Cymbalta Take 1 capsule (20 mg) by mouth 1 (one) time each day in the morning. Taking 80mg total * DULoxetine [address] capsule Commonly known as: Cymbalta Take 1 capsule by mouth every morning. ezetimibe 10 MG tablet Commonly known as: Zetia Take 1 tablet by mouth nightly. ferrous sulfate 324 (65 Fe) MG EC tablet Take 1 tablet by mouth daily with breakfast. Do not crush, chew, or split. folic acid 1 MG tablet Commonly known as: Folvite Taking 1 tablet five days of the week furosemide 40 MG tablet Commonly known as: Lasix Take 1.5 tablets by mouth 2 times a day. gabapentin 300 MG capsule Commonly known as: Neurontin Take 2 capsules by mouth 2 times a day. Glucagon Emergency 1 MG kit 1 mg as needed. glucose blood test strip Use to test blood sugars twice a day to calibrate cgm. Dx 10.65 hydroxychloroquine 200 MG tablet Commonly known as: Plaquenil Take 1 tablet by mouth nightly. insulin lispro 100 UNIT/ML injection pen Commonly known as: HumaLOG KWIKPEN Inject 2-6 units before meals plus 1:60>150. Max tdd 30 units Keto-Diastix strip 1 strip by In Vitro route daily. Lancets mis Use twice a day to calibrate cgm Dx E10.65 latanoprost 0.005 % ophthalmic solution Commonly known as: Xalatan Administer 1 drop into both eyes nightly. levothyroxine 125 MCG tablet Commonly known as: Synthroid, Levoxyl Take 1 tablet (125 mcg) by mouth 1 (one) time each day before breakfast. lidocaine 2 % solution Commonly known as: Xylocaine Take 5 mL by mouth as needed for mild pain. Swish and spit: Every 4 hours as needed. losartan 25 MG tablet Commonly known as: Cozaar Take 1 tablet by mouth daily. metoprolol succinate XL 25 MG 24 hr tablet Commonly known as: Toprol-XL Take 1 tablet by mouth nightly. mycophenolate 500 MG tablet Commonly known as: CellCept Take 2 tablets by mouth 2 times a day. nitroglycerin 0.4 MG SL tablet Commonly known as: Nitrostat Place 1 tablet under the tongue every 5 minutes as needed. oxygen gas Commonly known as: O2 Inhale 2 L continuously. via nasal canula Pitavastatin Calcium 4 MG tablet Commonly known as: Livalo Take 1 tablet by mouth daily. Toujeo SoloStar 300 UNIT/ML injection pen (1 UNIT DIAL) Generic drug: insulin glargine Inject 6 Units under the skin 2 times a day. Trelegy Ellipta 200-62.5-25 MCG/ACT aerosol powder Generic drug: Kcgoyuddoyr-Mwcbzdrah-Ihsqae Inhale 1 puff every morning. warfarin 5 MG tablet Commonly known as: Coumadin Take 2.5 mg on Friday and 5mg the rest of the week and follow up with your warfarin pharmacist. Notes to patient: Resume previous dose of 7.5 mg on Friday and 5mg the rest of the week and followup with your warfarin pharmacist. * This list has 2 medication(s) that are the same as other medications prescribed for you. Read thedirections carefully, and ask your doctor or other care provider to review them with you. Where to Get Your Medications These medications were sent to [facility] - [address] [address] furosemide 40 MG tablet losartan 25 MG tablet Information about where to get these medications is not yet available Ask your nurse or doctor about these medications Waldemar FuentesoStar 300 UNIT/ML injection pen (1 UNIT DIAL) Discharge Diagnosis Medical Problems Active and Resolved Hospital Problems Hospital Depression Overview Addendum 04/16/2024 10:04 AM by Alisa Kunz, - Chronic, stable. On Cymbalta, Buspar. Did not tolerate Wellbutrin. Following with outside psychiatry. Hypertension Overview Addendum 12/26/2022 9:33 AM by Alisa Kunz, - Chronic, controlled on BB, ARB. Acquired hypothyroidism Overview Addendum 01/05/2024 2:47 PM by Alisa Kunz, DO - Last TSH 0.77 in 06/2023 - On levothyroxine 125 mcg daily. Diabetic neuropathy with neurologic complication Overview Addendum 04/16/2024 10:04 AM by Alisa Kunz, DO - Chronic, stable. - For neuropathy: On gabapentin. Controlled substance agreement signed 03/2021, UDS completed and appropriate 03/2021. Hyperlipidemia Overview Addendum 04/16/2024 10:05 AM by Alisa Kunz, DO - Last lipid panel 06/2023: The ASCVD [...] as she is high risk for recurrent [place]/stroke. Also on Zetia. EWELINA (obstructive sleep apnea) Overview Addendum 04/30/2024 5:59 AM by Ramírez Shipman APRN CPAP intolerant, wears O2 2L NC SLE (systemic lupus erythematosus) ([facility]) Overview Addendum 12/26/2022 9:45 AM by Alisa Kunz, - Chronic, worsening. - Pleural effusion is believes to be from SLE. - Following closely with [facility]ology for management. GERD (gastroesophageal reflux disease) Overview Addendum 02/06/2022 2:45 PM by Alisa Kunz DO - On no medications. Type 1 diabetes mellitus with hyperglycemia Cerebrovascular accident (CVA) ([facility]/HCC) * (Principal) Decompensated heart failure Atrial fibrillation ([facility]ER[facility]) RESOLVED: Acute on chronic congestive heart failure Post Discharge Instructions See AVS Outpatient Follow-Up Future Appointments Date Time Provider Department Center 12/27/2024 9:40 AM Anne-Marie Kolb, YAMILET ENDOT[facility] [place] 12/28/2024 12:40 PM Chai Sheikh MD FMPDPOLKD [facility] 01/05/2025 10:00 AM GS MR 2 MRIGSH [facility] 01/05/2025 11:00 AM Ezra Fine MD IVPGSH [facility] 01/06/2025 2:00 PM [facility] 01/27/2025 10:00 AM Sujit Cole APRN [facility] 02/02/2025 8:40 AM Alisa Kunz DO [facility] 02/09/2025 12:20 PM Anne-Marie Kolb, [employer] OPERATOR ENDOT[facility] [place] Test Results Pending At Discharge Pertinent Physical Exam At Time of Discharge Physical Exam Vitals reviewed. Constitutional: Interventions: Nasal cannula in place. HENT: Head: Normocephalic and atraumatic. Cardiovascular: Rate and Rhythm: Normal rate. Pulmonary: Breath sounds: Examination of the right-lower field reveals decreased breath sounds. Examination ofthe left-lower field reveals decreased breath sounds. Decreased breath sounds present. Skin: General: Skin is dry. Coloration: Skin is pale. Neurological: Mental Status: She is alert and oriented to person, place, and time. Psychiatric: Behavior: Behavior normal. Thought Content: Thought content normal. Discharge Disposition/Condition Disposition: Home with Home Health Condition: Stable (s/sx potential problems absent or manageable) I spent >30 minutes of patient care and instruction time in preparation for this discharge. * Care Plan - Shantal Srivastava RN - 12/23/2024 10:59 AM EDT Problem: Adult Inpatient Plan of Care Goal: Plan of Care Review Outcome: Ongoing, Progressing Flowsheets (Taken 12/23/20241055) Progress: improving Outcome Evaluation: patient will discharge this shift Plan of Care Reviewed With: patient Goal: Patient-Specific Goal (Individualized) Outcome: Ongoing, Progressing Goal: Absence of Hospital-Acquired Illness or Injury Outcome: Ongoing, Progressing Goal: Optimal Comfort and Wellbeing Outcome: Ongoing, Progressing Intervention: Monitor Pain and Promote Comfort Flowsheets (Taken 12/23/20241055) Pain Management Interventions: rest Intervention: Provide Person-Centered Care Flowsheets (Taken 12/23/20241055) Trust Relationship/Rapport: care explained Problem: Fall Injury Risk Goal: Absence of Fall and Fall-Related Injury Outcome: Ongoing, Progressing Intervention: Identify and Manage Contributors Flowsheets (Taken 12/23/20241055) Medication Review/Management: medications reviewed Self-Care Promotion: independence encouraged meal set-up provided Intervention: Promote Injury-Free Environment Flowsheets (Taken 12/23/20241055) Safety Promotion/Fall Prevention: activity supervised assistive device/personal items within reach clutter-free environment maintained fall prevention program maintained nonskid shoes/slippers when out of bed room organization consistent lighting adjusted Problem: Skin Injury Risk Increased Goal: Skin Health and Integrity Outcome: Ongoing, Progressing Intervention: Optimize Skin Protection Flowsheets (Taken 12/23/20241055) Activity Management: activity adjusted per tolerance Pressure Reduction Techniques: frequent weight shift encouraged Pressure Reduction Devices: chair cushion utilized Skin Protection: skin sealant/moisture barrier applied Head of Bed (HOB) Positioning: HOB at 30 degrees Intervention: Promote and Optimize Oral Intake Flowsheets (Taken 12/23/20241055) Oral Nutrition Promotion: calorie-dense foods provided Nutrition Interventions: diet liberalized * Progress Notes - Gale Anderson RN - 12/23/2024 9:09 AM EDT Current therapy recommendation is home with assistance; home health PT. Pt has strong family support and paid caregivers to provide assist as needed. [facility] HH referral sent to [facility]. Gale Anderson RN * Care Plan - Melodie Villafuerte RN - 12/23/2024 1:16 AM EDT Problem: Adult Inpatient Plan of Care Goal: Plan of Care Review Outcome: Ongoing, Progressing Flowsheets (Taken 12/23/2024 0115) Progress: improving Outcome Evaluation: Patient will verbalzie understanding of current POC by end of shift Plan of Care Reviewed With: patient Goal: Patient-Specific Goal (Individualized) Outcome: Ongoing, Progressing Flowsheets (Taken 12/22/20241999) Patient/Family-Specific Goals (Include Timeframe): Patient will remain free from falls and further skin breakdown throughout shift Individualized Care Needs: Safety/skin integrity Anxieties, Fears or Concerns: None stated Problem: Fall Injury Risk Goal: Absence of Fall and Fall-Related Injury Outcome: Ongoing, Progressing Intervention: Promote Injury-Free Environment Flowsheets (Taken 12/22/20241999) Safety Promotion/Fall Prevention: activity supervised assistive device/personal items within reach clutter-free environment maintained fall prevention program maintained lighting adjusted nonskid shoes/slippers when out of bed room organization consistent safety round/check completed toileting scheduled Problem: Skin Injury Risk Increased Goal: Skin Health and Integrity Outcome: Ongoing, Progressing Intervention: Optimize Skin Protection Flowsheets Taken 12/22/20241999 by Melodie Villafuerte RN Activity Management: activity adjusted per tolerance activity encouraged Skin Protection: incontinence pads utilized transparent dressing maintained Taken 12/22/20241614 by Shantal Srivastava RN Pressure Reduction Techniques: frequent weight shift encouraged * Care Plan - Shantal Srivastava RN - 12/22/2024 4:33 PM EDT Problem: Adult Inpatient Plan of Care Goal: Plan of Care Review Outcome: Ongoing, Progressing Flowsheets (Taken 12/22/2024 161) Progress: improving Outcome Evaluation: patient will work with PT this shift Plan of Care Reviewed With: patient Goal: Patient-Specific Goal (Individualized) Outcome: Ongoing, Progressing Flowsheets (Taken 12/22/2024 0900) Patient/Family-Specific Goals (Include Timeframe): patient will remain safe and free of injury thisshift Individualized Care Needs: patient safety Anxieties, Fears or Concerns: none Goal: Absence of Hospital-Acquired Illness or Injury Outcome: Ongoing, Progressing Intervention: Identify and Manage Fall Risk Flowsheets (Taken 12/22/2024 161) Safety Promotion/Fall Prevention: clutter-free environment maintained fall prevention program maintained nonskid shoes/slippers when out of bed room organization consistent safety round/check completed assistive device/personal items within reach Intervention: Prevent Skin Injury Flowsheets (Taken 12/22/2024 161) Body Position: weight shifting Skin Protection: transparent dressing maintained skin sealant/moisture barrier applied Intervention: Prevent and Manage VTE (Venous Thromboembolism) Risk Flowsheets (Taken 12/22/2024 161) VTE Prevention/Management: medication Intervention: Prevent Infection Flowsheets (Taken 12/22/2024 161) Infection Prevention: equipment surfaces disinfected hand hygiene promoted rest/sleep promoted single patient room provided environmental surveillance performed Goal: Optimal Comfort and Wellbeing Outcome: Ongoing, Progressing Intervention: Monitor Pain and Promote Comfort Flowsheets (Taken 12/22/2024 161) Pain Management Interventions: rest Intervention: Provide Person-Centered Care Flowsheets (Taken 12/22/2024 161) Trust Relationship/Rapport: care explained emotional support provided Problem: Fall Injury Risk Goal: Absence of Fall and Fall-Related Injury Outcome: Ongoing, Progressing Intervention: Identify and Manage Contributors Flowsheets (Taken 12/22/2024 161) Medication Review/Management: medications reviewed Self-Care Promotion: independence encouraged meal set-up provided Intervention: Promote Injury-Free Environment Flowsheets (Taken 12/22/2024 161) Safety Promotion/Fall Prevention: clutter-free environment maintained fall prevention program maintained nonskid shoes/slippers when out of bed room organization consistent safety round/check completed assistive device/personal items within reach Problem: Skin Injury Risk Increased Goal: Skin Health and Integrity Outcome: Ongoing, Progressing Intervention: Optimize Skin Protection Flowsheets (Taken 12/22/2024 161) Activity Management: activity adjusted per tolerance Pressure Reduction Techniques: frequent weight shift encouraged Pressure Reduction Devices: chair cushion utilized Skin Protection: transparent dressing maintained skin sealant/moisture barrier applied Head of Bed (HOB) Positioning: HOB at 30-45 degrees Intervention: Promote and Optimize Oral Intake Flowsheets (Taken 12/22/2024 1615) Oral Nutrition Promotion: calorie-dense foods provided Nutrition Interventions: diet liberalized * Progress Notes - Nelsy Odom PharmD - 12/22/2024 4:01 PM EDT Antithrombosis Stewardship Pharmacist to Dose Warfarin Management Doron Felipe is a 74 y.o. female who has been consulted for warfarin dosing and monitoring. Current Hematologic Labs INR (no units) Date/Time Value 12/22/2024 0337 1.7 (H) HGB (g/dL) Date/Time Value 12/22/2024 0336 9.7 (L) HCT (%) Date/Time Value 12/22/2024 0336 30.8 (L) Platelet Count (10*3/uL) Date/Time Value 12/22/2024 0336 310 No results found for: PTT Subjective Warfarin Indication: Atrial fibrillation;Left Ventricular Thrombus Target INR: 2-3 Warfarin Prior to Admission: Yes Prior to Admission Daily Warfarin Regimen: warfarin 5mg PO every SuMoWeThFrSa and warfarin 7.5mg POevery Tu Assessment Warfarin Sensitivity Risk Factors: Acute decompensated heart failure;Chronic liver, renal, or thyroid disease;Elderly, age > 65 Today's INR : Subtherapeutic Plan Warfarin Plan: Continue current dose Specify Warfarin Dose: Warfarin 7.5mg today to make up for missed 7.5mg dose yesterday, then resumewarfarin 5mg PO SuMoWeThFrSa and warfarin 7.5mg PO Tu Bridging Agent in Conjunction With Warfarin? : No Patient Education : Incomplete Outpatient Anticoagulation Provider: [facility] Date INR Dose 12/21 1.7 5 mg 12/22 1.7 (7.5 mg) Will continue to follow patient's clinical progress daily. Nelsy Odom, Alfa * Consults - Jodie Vicente RD - 12/22/2024 2:36 PM EDTAssociated Order(s): IP CONSULT TO NUTRITION SERVICES Adult Nutrition Evaluation Note Doron Felipe 74 y.o. female CSN: [id number] Room/Bed 417/417A Nutrition evaluation type: assessment Reason for evaluation: provider consult Hospital course: 74 y.o. female who presented with chest pressure and increased shortness of breath Past medical/ surgical history: Past Medical History[1] Surgical History[2] Social history: Additional comments: Met with pt at bedside. Good appetite but does not like food options served. Noted occasional constipation, interested in bowel medications. Noted gradual wt loss over the past year, started at 150# and reportedly has gone down to 134# (16# (10%) wt loss in a few months - severe for time frame if accurate), wt fluctuations noted, suspect fluid skewing data. Noted cannot chew hard things, agreeable to ETC diet. 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) GI Symptoms: None Edema: Right lower extremity, Left lower extremity Skin: wounds on left pretibial, left foot, left toe, and right toes Allergies: NKFA Medications: Current Scheduled Medications[3] Current Continuous Medications[4] Current PRN Medications[5] Meds were reviewed: Yes Labs: Lab Results Component Value Date GLUCOSE 178 (H) 12/22/2024 CALCIUM 8.8 (L) 12/22/2024 NA 137 12/22/2024 K 3.6 12/22/2024 CO2 34 (H) 12/22/2024 CL 95 (L) 12/22/2024 BUN 25 (H) 12/22/2024 CREATININE 0.86 12/22/2024 PHOS 3.4 12/22/2024 MG 1.9 12/22/2024 HGBA1C 8.7 (H) 11/20/2024 Anthropometrics: Height: 162.6 cm (5' 4 ) Weight: 70.1 kg (154 lb 9.6 oz) BMI (Calculated): 26.52 Weight Evaluation: Overweight (BMI 25-29.9) Novelty Body Weight (kg): 54.5 Percent Novelty Body Weight: 129 Adjusted Body Weight (kg): 58 Wt Readings from Last 10 Encounters: 12/22/24 70.1 kg (154 lb 9.6 oz) 12/06/24 60.9 kg (134 lb 4.2 oz) 11/29/24 64.5 kg (142 lb 3.2 oz) 11/15/24 60.9 kg (134 lb 4.2 oz) 10/14/24 60.9 kg (134 lb 4.2 oz) 10/07/24 59 kg (130 lb) 09/27/24 59 kg (130 lb) 09/15/24 59.7 kg (131 lb 9.8 oz) 08/24/24 59.7 kg (131 lb 9.8 oz) 08/04/24 63.9 kg (140 lb 14 oz) Noted fluctuations, suspect related to changes in fluid status Estimated Needs: Kcal/ K-30 Kcal Provided: 0021-6352 Kcal Needs Based On: Current weight Gm Protein/ Kg : 1.2-1.5 Protein Provided: 84-105 Protein Needs Based On: Current weight Fluid Provided: 1 ml/kcal or per MD team Current Nutrition Intake: Diet Order: Adult Diet Diet Texture: Easy to Chew 7 Adult Carbohydrate Restriction: Consistent CHO 2 (8665-7527 Damon, 80 g/meal) Adult Sodium Restriction: 2,000 mg Na Adult Fluid Restriction / 24 hr: 1800 ml fluid Percent Meals Eaten (%): 50% avg x 2 meals (12/22) Diet Experience and Nutrition History: Diet Education Provided: Will monitor Pertinent home medications: Medications Ordered Prior to Encounter[6] Spiritism needs: Nutrition Focused Physical Exam: Physical exam performed on (date): 12/22 [place] (muscles): Mild (suspect findings appropriate for age) Clavicle (muscle): None Shoulder (muscle): None Thigh (muscle): None Calf (muscle): None Orbital (fat): Mild (suspect findings appropriate for age) Triceps (fat): Moderate (suspect findings appropriate for age) Assessment of Malnutrition: Malnutrition Identified: No Nutrition Problem: Increased nutrient needs kcal, protein related to increased metabolic demand as evidenced by COPD. Status of Nutrition Diagnosis: New Nutrition Interventions and Recommendations: Continue ETC, CCHO2, 2gm Na diet as tolerated. Fluid restriction per MD team. Rec MVI with mineral supplementation daily. Rec obtaining weight 1x/week. Continue insulin regimen per care team. Rec bowel regimen per care team. Nutrition Monitoring and Goals: - Will monitor PO intake, weight status, lab results, GI tolerance, and skin integrity. - Pt will tolerate >50% avg of meal intakes. - Pt will maintain weight this admission. - Glucose <180 mg/dL this admission. - Regular bowel movements. Acuity Level: 1 Jodie Vicente, RD, MS, LD [1] Past Medical History: Diagnosis Date 2018-nCoV acute respiratory disease 05/07/2022 Acute hypoxic respiratory failure 04/29/24 - Pt had the flu last week; still recovering ; wet cough still lingers- CT shows atelectasis likeley due to shallow breaths from T12 compression fracture pain - Pt saturating well on room air prior to discharge PLAN- Pt to continue with respiratory spirometry while at home to aid in airflow and opening of airway Alcohol use Allergic 1973 Anemia Anxiety Arthritis Asthma Cellulitis 02/13/2024 Cellulitis of right leg 02/12/2024 CHF (congestive heart failure) Chronic respiratory failure 2019 Clotting disorder Congenital malformation COPD (chronic obstructive pulmonary disease) 2018 Coronary artery disease CTS (carpal tunnel syndrome) Dental disease Depression Diabetes mellitus type I Disease of thyroid gland Eczema Fracture of left proximal fibula 04/09/2021 - Left proximal fibula fracture on 02/2021 after a mechanical fall. - Established with orthopedic surgery, no surgical intervention, WBAT. Heart disease Hepatitis B 1960 HL (hearing loss) Hypertension Hyperthyroidism 1960 Hypothyroidism 1960 Infectious viral hepatitis Myocardial infarction Peripheral neuropathy Pneumonia 06/01 Post-menopausal bleeding 05/08/2021 [...] Was ableto get patient in with [facility] ophthalmology right after our clinic appointment [...] CARDIAC PACEMAKER PLACEMENT N/A Pacemaker Placement from [facility] CARPAL TUNNEL RELEASE N/A Neuroplasty Decompression Median Nerve At Carpal Tunnel from [facility] CERVICAL BIOPSY W/ LOOP ELECTRODE EXCISION 2010 SECTION, CLASSIC 1976, 1979 SECTION, LOW TRANSVERSE N/A Section from [facility] COLONOSCOPY N/A Complete Colonoscopy from [facility] CORONARY ARTERY BYPASS GRAFT N/A CABG from [facility] EYE SURGERY N/A Eye Surgery from [facility] FRACTURE SURGERY SPINE SURGERY THORACENTESIS TOE SURGERY Left 02/07/2024 hematoma removal of upper skin on L big toe TONSILLECTOMY N/A Tonsillectomy from avox [3] atorvastatin, 40 mg, Oral, Nightly brimonidine, 1 drop, Both Eyes, Nightly calcium-vitamin D, 1 tablet, Oral, Daily cetirizine, 10 mg, Oral, q PM [START ON 12/23/2024] DULoxetine, 20 mg, Oral, Daily DULoxetine, 60 mg, Oral, Daily ezetimibe, 10 mg, Oral, Nightly gabapentin, 600 mg, Oral, BID hydroxychloroquine, 200 mg, Oral, Nightly insulin glargine-yfgn, 5 Units, Subcutaneous, BID insulin lispro, 0-5 Units, Subcutaneous, TID with meals insulin lispro, 0-3 Units, Subcutaneous, Twice at night latanoprost, 1 drop, Both Eyes, Nightly levothyroxine, 125 mcg, Oral, Daily before breakfast metoprolol succinate XL, 25 mg, Oral, q AM Tiotropium [place] Monohydrate, 2 puff, Inhalation, Daily And mometasone-formoterol, 2 puff, Inhalation, BID mycophenolate, 1,000 mg, Oral, BID sodium chloride, 10 mL, Intravenous, q12h [START ON 12/23/2024] warfarin, 5 mg, Oral, Once per day on Friday warfarin, 7.5 mg, Oral, Once [START ON 12/28/2024] warfarin, 7.5 mg, Oral, Every Friday [4] [5] PRN medications: acetaminophen, albuterol, glucose OR dextrose 10 % OR dextrose 10 % OR glucagon (human recombinant), [COMPLETED] Insert peripheral IV AND [COMPLETED] Saline lock IV AND sodium chloride AND sodium chloride [6] No current facility-administered medications on file prior to encounter. Current Outpatient Medications on File Prior to Encounter Medication Sig Dispense Refill acetaminophen (Tylenol) 500 [...] with breakfast. Do not crush,chew, or split. Ujhfhwumotg-Utjvxydno-Vgrulb (Trelegy Ellipta) 200-62.5-25 MCG/ACT aerosol powder Inhale 1 puff every morning. 60 each 0 folic acid (Folvite) 1 MG tablet Taking 1 tablet five days of the week 90 tablet 1 furosemide (Lasix) 80 MG tablet Take 1 tablet by mouth daily. (Patient taking differently: Take 1 tablet by mouth every morning.) 30 tablet 2 gabapentin (Neurontin) 300 MG capsule Take 2 capsules by mouth 2 times a day. 120 capsule 2 hydroxychloroquine (Plaquenil) 200 MG tablet Take 1 tablet by mouth nightly. insulin glargine (Toujeo SoloStar) 300 UNIT/ML injection pen (1 UNIT DIAL) Inject 14 Units under the skin every morning. (Patient taking differently: Inject 6 Units under the skin 2 times a day.) 4.5mL 3 insulin lispro (HumaLOG KWIKPEN) 100 UNIT/ML injection pen Inject 2-6 units before meals plus 1:60>150. Max tdd 30 units 30 mL 2 latanoprost (Xalatan) 0.005 % ophthalmic [...] tablet Take 1 tablet by mouth nightly. mycophenolate (CellCept) 500 MG tablet Take 2 tablets by mouth 2 times a day. 360 tablet 1 nitroglycerin (Nitrostat) 0.[address] 1 tablet under the tongue every 5 minutes as needed. oxygen (O2) gas Inhale 2 L continuously. via nasal canula Pitavastatin Calcium (Livalo) 4 MG tablet Take 1 tablet by mouth daily. 90 tablet 3 Probiotic Product (acidophilus probiotic blend) capsule Take 1 capsule by mouth daily. warfarin (Coumadin) 5 MG tablet Take 2.5 mg on Friday and 5mg the rest of the week and follow up with your warfarin pharmacist. (Patient taking differently: Take 7.5 mg on Friday and 5mg the rest of the week and follow up with your warfarin pharmacist.) 30 tablet 0 [DISCONTINUED] HumaLOG KWIKPEN 100 UNIT/ML injection pen Inject 3 Units under the skin 3 times a day with meals. [DISCONTINUED] mycophenolate (Cellcept) 500 MG tablet Take 2 tablets by mouth 2 times a day. [DISCONTINUED] Pitavastatin Calcium 4 MG tablet Take 1 tablet by mouth daily. [DISCONTINUED] Toujeo SoloStar 300 UNIT/ML injection pen (1 UNIT DIAL) Inject 6 Units under the skin 2 times a day. Blood Glucose Monitoring Suppl (Blood Glucose Monitor System) w/Device kit Test blood sugars twice a day to calibrate cgm. Dx E10.65 1 kit 0 Glucagon, rDNA, (Glucagon Emergency) 1 MG kit 1 mg as needed. glucose blood test strip Use to test blood sugars twice a day to calibrate cgm. Dx 10.65 100 each 12 Lancets misc Use twice a day to calibrate cgm Dx E10.65 100 each 3 Urine Glucose-Ketones Test (Keto-Diastix) strip 1 strip by In Vitro route daily. [DISCONTINUED] acetaminophen (Tylenol) 500 MG tablet Take 2 tablets by mouth every 6 hours as needed. [DISCONTINUED] cetirizine (ZyrTEC) 10 MG tablet Take 1 tablet by mouth nightly. [DISCONTINUED] DULoxetine (Cymbalta) [address] capsule Take 1 capsule by mouth every morning. [DISCONTINUED] DULoxetine (Cymbalta) [address] capsule Take 1 capsule by mouth daily. Do not crush or chew. Take in addition to one 20mg capsule for a total of 80mg daily. [DISCONTINUED] ezetimibe (Zetia) 10 MG tablet Take 1 tablet by mouth daily. [DISCONTINUED] furosemide (Lasix) 80 MG tablet Take 1 tablet by mouth daily. [DISCONTINUED] gabapentin (Neurontin) 300 MG capsule Take 2 capsules by mouth 2 times a day. 120 capsule 0 [DISCONTINUED] hydroxychloroquine (Plaquenil) 200 MG tablet Take 1.5 tablets by mouth daily. 45 tablet 5 [DISCONTINUED] ipratropium (Atrovent) 0.06 % nasal spray Administer 2 sprays into each nostril 4 times a day. 15 mL 12 [DISCONTINUED] latanoprost (Xalatan) 0.005 % ophthalmic solution Administer 1 drop into both eyes nightly. [DISCONTINUED] levothyroxine (Synthroid, Levoxyl) 125 MCG tablet Take 1 tablet by mouth daily with breakfast. [DISCONTINUED] lisinopril 20 MG tablet Take 1 tablet (20 mg total) by mouth 1 (one) time each day. Take one tablet each morning 90 tablet 3 [DISCONTINUED] sucralfate (Carafate) 1 GM/10ML suspension Take 10 mL by mouth 4 times a day. 473 mL11 [DISCONTINUED] Trelegy Ellipta 200-62.5-25 MCG/ACT aerosol powder Take 1 puff by mouth daily. [DISCONTINUED] Warfarin Sodium (warfarin, Coumadin, intermittent dosing) Take as directed per AfterVisit Summary. * Progress Notes - Júnior Suarez RN - 12/22/2024 2:16 PM EDT Responded to consult for, BLE wounds present on admission. Per assessment, patient has small, scattered, dry, sanguineous crusts to the feet and legs. No signs of infection present. Orders have been placed to wash and paint with betadine. - Wound Care signing off. Please reconsult if Wound Care can be of service. * Progress Notes - Sharath Monae MD - 12/22/2024 12:42 PM EDT Subjective Feels better this morning, chest heaviness resolved Shortness of breath improving, she is at home oxygen 2 L/min No cough No abdominal pain, nausea or vomiting Review of Systems As above Objective Vitals Temp: [36.4 ??C (97.5 ??F)-36.9 ??C (98.4 ??F)] 36.7 ??C (98 ??F) Heart Rate: [59-64] 59 Resp: [14-22] 16 BP: (148-195)/(65-138) 174/82 Physical Exam Vitals reviewed. Constitutional: General: She is not in acute distress. Interventions: Nasal cannula in place. HENT: Head: Normocephalic and atraumatic. Mouth/Throat: Mouth: Mucous membranes are moist. Eyes: Conjunctiva/sclera: Conjunctivae normal. Cardiovascular: Rate and Rhythm: Normal rate. Heart sounds: Normal heart sounds. Pulmonary: Effort: Pulmonary effort is normal. Breath sounds: Examination of the right-lower field reveals decreased breath sounds. Examination ofthe left-lower field reveals decreased breath sounds. Decreased breath sounds present. Abdominal: General: There is no distension. Palpations: Abdomen is soft. Tenderness: There is no abdominal tenderness. Musculoskeletal: Comments: Mild bilateral ankle edema Skin: General: Skin is dry. Neurological: Mental Status: She is alert and oriented to person, place, and time. Psychiatric: Behavior: Behavior normal. Thought Content: Thought content normal. Labs in last 18 hours CBC WBC 5.62 Hb 9.7 (L) Plt 310 Hct 30.8 (L) ANC ?? INR 1.7 (H), PTT ??, Anti-Xa ?? BMP Na 137 Cl 95 (L) BUN 25 (H) Glu 178 (H) K 3.6 Co2 34 (H) Cr 0.86 Ca 8.8 (L) iCa ?? Mg 1.9, Phos 3.4 Lactate ?? LFT AST ?? AlkPhos ?? T Prot ?? ALK ?? Bili ?? Alb ?? D.Bili ?? XR Chest 1 View Result Date: 12/21/2024 Impression: Opacity in the left lung base in the retrocardiac region consistent with an area of atelectasis or infection with small left pleural effusion. Medium-sized right pleural effusion with underlying airspace disease may related to volume loss and/or infection. CRITICAL RESULT: No. COMMUNICATION: Per this written report. Drafted by Vaughn Kwan MD on 12/21/2024 5:33 PM Final report signed by Vaughn Kwan MD on 12/21/2024 5:34 PM Assessment & Plan Decompensated heart failure Depression Hypertension Acquired hypothyroidism Diabetic neuropathy with neurologic complication Hyperlipidemia EWELINA (obstructive sleep apnea) SLE (systemic lupus erythematosus) ([facility]) GERD (gastroesophageal reflux disease) Type 1 diabetes mellitus with hyperglycemia Cerebrovascular accident (CVA) ([facility]) Atrial fibrillation ([facility]/HCC) Acute on chronic congestive heart failure 74 y.o. female with past medical history of COPD on 2L oxygen, HFpEF, SLE, A fib, prior LV thrombuson warfarin, recurrent right pleural effusion requiring thoracentesis. Patient was admitted from 11/20 - 11/29 for Acute ischemic stroke in Right temporal lobe. Hospital course complicated by acute on chronic hypoxic respiratory failure and hospital-acquired pneumonia. She was treated with vancomycin Zosyn as well as IV bumetanide was given for diuresis. Patient was discharged to [facility] for subacute rehab and she just returned home for 1 day. Now, presented with chest pressure and increased shortness of breath, she is admitted and treated for : Volume overload Acute on chronic heart failure with moderately reduced ejection fraction - Last echo November 2024 EF 44% - Presented with chest heaviness, increased shortness of breath and lower limb edema - BNP 29918 which is of previous baseline - Chest x-ray on admission reviewed shows moderate-sized right-sided pleural effusion, small left pleural effusion and bilateral lower base atelectasis - On by mouth Lasix 80 mg daily at home Plan - IV Lasix 80 mg once today - monitor I/O - Monitor renal function and electrolytes - 2 g Na diet restriction - Continue home metoprolol Recent ischemic stroke in Right temporal lobe - Patient was hospitalized from 11/20/2024 - 11/29/2024 for acute ischemic stroke in the right temporal lobe, thought to be cardioembolic. She was discharged to [facility] - Per neurology: Secondary stroke prophylaxis: Atorvastatin 40 mg, restarted warfarin and stopped aspririn History of Atrial Fibrillation, History of Complete Heart Block s/p PPM, History of LV Apical Thrombus Anticoagulated with warfarin - LV apical thrombus incidentally found on echo 01/2024 while patient was on Eliquis. Patient started on Warfarin; no LV thrombus noted on most recent echo (07/12/2024). - No cardioversion planned with recent CVA. Follows with [facility]. Echo on 11/20/24: EF 44%. No left ventricular mass or thrombus. - Sub therapeutic INR, pharmacy to dose warfarin Hypokalemia - Monitor and replace as needed Type I DM with peripheral neuropathy - HbA1c : 8.7% - Continue insulin lantus 5 units BID, sliding scale, - continue gabapentin and duloxetine Chronic hypoxic respiratory failure secondary to COPD, bilateral chronic pleural effusions - on 2 L/min O2 at home - currently at baseline - has pulm follow up tomorrow at 4 pm Chronic Medical Conditions: - CAD s/p CABG (2019) and Balloon Angioplasty (2020): Follows with [facility]. - SLE, Fibromyalgia: Follows with rheumatology. On CellCept and Plaquenil - HLD: Lipitor, Zetia. - Hypothyroidism: Levothyroxine. - EWELINA: Follows with sleep medicine; has CPAP at home that she has not been using for awhile. Useshome baseline 2L O2 at night. - Osteopenia, History of T12 Burst Fracture: On no specific osteopenia treatment. DEXA due 01/2025.On calcium with vitamin-D - Anxiety, Depression: Continue duloxetine - Allergies, Gustatory Rhinitis: Continue Zyrtec - RLS: Gabapentin as above. - Glaucoma: On Alphagan and xalatan eyedrops Diet: regular VTE Prophylaxis: warfarin Code status: DNR/DNI Discharge planning: pending PT eval. Likely to be ready in 24-48 hours Plan of care discussed with patient at bedside Sharath Monae MD Division of hospital medicine * Progress Notes - Gale Anderson RN - 12/22/2024 12:33 PM EDT Case Management Adult Initial Progress Note Doron Felipe 74 y.o. female CSN: [id number] Admission: 12/21/2024 4:24 PM Primary Problem: Decompensated heart failure Production Statistical Clerk reviewed chart and spoke with patient to complete this Initial Case Management Assessment. Pt confirmed address, EC, PCP, and insurance. Pt lives with her in a one story home and3 steps to enter but also has a ramp. Pt is retired and relies upon family or paid caregivers for transport. Pt has a bedside commode, rolling walker, shower chair and uses oxygen 2 LPM via [place]. 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 Pt denies infusions, and HD. Patient has POA/LW, however documents not filed in chart. PCP: Alisa Kunz DO, last office visit less than 1 yr ago. Emergency Contact: Extended Emergency Contact Information Primary Emergency Contact: MatteoDoron Address: [address] [place] [address] [facility] [place] Relation: Spouse Secondary Emergency Contact: Ruthie Jamil [place] Relation: Daughter Preferred language: Estonian Statistical Clerk needed? No Insurance: Primary Visit Coverage Payer Plan Sponsor Code Group Number Group Name [facility] MEDICARE [facility] MEDICARE REPLACEMENT [id number] Primary Visit Coverage Subscriber Subscriber ID Subscriber Name Subscriber SSN Subscriber Address [id number] DORON FELIPE [id number] [address] [place] [address] Patient information: Primary Caregiver: Private caregiver Support System: Immediate family Daily Living Activities: Functional Status: Moderate assistance Living Arrangements: Spouse/Significant other Type of Residence: Private residence, Single Level [address] [facility] [place] [address] Smoker in the Home?: No Current DME: Equipment Currently Used at Home: commode chair, grab bar, tub/shower, oxygen, raised toilet seat, shower chair, walker, rolling Current DME Provider: Husam Zimmergen POC Income Information: Income Source: Retired Income/Expense Information: Income meets expenses Current Resources Utilized: None Housing Circumstances-Z Codes: Housing Circumstances (select all that apply): None Applicable Patient Referred to: Anticipated Discharge Date: TBD Patient's Discharge Goal: Return home Assistance Available at Discharge: self, family, paid caregivers 8+ hrs per day. Discharge Transport: Caregiver Follow Up Transport: Caregiver Home Health / Home Infusion / Outpatient Dialysis Services: Current DME Provider: Husam Zimmergen POC Living Will/Advance Directive/Power of Bulb Grader /Guardian: Have you reviewed your Advance Directive and is it valid for this stay?: Yes Advance Directive: Patient has advance directive, copy not in chart Information Provided on Healthcare Directives: No Pre-existing DNR/DNI Order: Yes, notify physician for order Patient Requests Assistance: No Additional Comments: Role of the case monitor explained to patient who verbalizes understanding. Pt prefers [facility] in [place] and utilizes mail order for routine meds. Case management will continue to follow. Gale Anderson RN * Progress Notes - Maximus Khanna - 12/22/2024 10:47 AM EDT Occupational Therapy Evaluation Patient Name: Doron Felipe Today's Date: 12/22/2024 OT Discharge Recommendations: Home with assistance, Home health OT Equipment Recommended: Patient owns appropriate equipment History Doron Felipe is 74 y.o. female admitted 12/21/2024 for work-up of Decompensated heart failure. Problem List Active Hospital Problems Diagnosis Date Noted Decompensated heart failure 12/21/2024 Cerebrovascular accident (CVA) (CMS/HCC) 11/20/2024 Type 1 diabetes mellitus with hyperglycemia 08/04/2024 GERD (gastroesophageal reflux disease) 10/21/2021 SLE (systemic lupus erythematosus) ([facility]) 04/09/2021 Diabetic neuropathy with neurologic complication 09/06/2020 Hyperlipidemia 09/06/2020 EWELINA (obstructive sleep apnea) 09/06/2020 Hypertension 12/26/2016 Acquired hypothyroidism 05/05/2012 Depression 05/05/2012 Acute on chronic congestive heart failure 08/14/2024 Atrial fibrillation ([facility]) 08/04/2024 Procedures Past Medical History Patient has a past medical history of 2019-nCoV acute respiratory disease (05/07/2022), Acute hypoxic respiratory failure (04/29/24), Alcohol use, Allergic (1972), Anemia, Anxiety, Arthritis, Asthma,Cellulitis (02/13/2024), Cellulitis of right leg (02/12/2024), CHF (congestive heart failure), Chronic respiratory failure (2019), Clotting disorder, Congenital malformation, COPD (chronic obstructive pulmonary disease) (2018), Coronary artery disease, CTS (carpal tunnel syndrome), Dental disease, Depression, Diabetes mellitus type I, Disease of thyroid gland, Eczema, Fracture of left proximal fibula (04/09/2021), Heart disease, Hepatitis B (1960), HL (hearing loss), Hypertension, Hyperthyroidism (1960), Hypothyroidism (1960), Infectious viral hepatitis, Myocardial infarction, Peripheral neuropathy, Pneumonia (06/01), Post-menopausal bleeding (05/08/2021), Posterior circulation stroke ([facility]) (12/26/2022), Red eye (05/13/2022), Ringworm of body (04/09/2022), Seasonal allergies, Skin cancer (2023), Sleep apnea, obstructive, Stroke ([facility]), Systemic lupus erythematosus, unspecified ([facility]), Varicella, and Visual impairment. Past Surgical History [...] fracture surgery; and Toe Surgery (Left, 02/07/2024). Precautions Medical Precautions: Fall precautions Subjective Pt agreeable to OT eval. I just want to go home not to rehab again. Participants in Care Family/Caregiver Present: No Statistical Clerk: Not Applicable Presentation Oxygen Therapy: Supplemental oxygen O2 Delivery Method: Nasal cannula O2 Flow Rate (L/min): 2 L/min Lines and Tubes: Intravenous access Pre-Session: Supine, Lines intact, Head of bed elevated, Bed alarm Pre-Session Comments: RN gave consent to treat Post-Session: Lines intact, RN notified, Sitting in chair, Call light in reach, Chair alarm Post-Session Comments: All needs met Home Living/Set-up Lives With: Spouse Home Type: House Home Adaptive Equipment: Rolling walker, shower chair, Wheelchair-manual, Bedside commode Home Layout: One level (ramped entrance) Bathroom: Tub/Shower: Tub/Shower combo Bathroom: Toilet: Standard Bathroom: Accessibility: Accessible Prior Level of Function Receives Help From: Spouse, Caregiver Level of Mobility: Ambulatory- household only Mobility Rush: Independent gait with device History of Falls: No ADL Performance: Needs assistance Patient/Family Goals Statement Return home with assist Objective Pain No complaints of pain Delirium Screening RASS: Alert and calm Confusion Assessment Method-ICU (CAM-ICU/PCAM-ICU) Feature 3: Altered Level of Consciousness: Negative Cognition Overall Cognitive Status: Within Functional Limits Arousal/Alertness: Appropriate responses to stimuli Mood/Behavior: Alert Orientation Level: Oriented X4 Single Step Commands: Consistently Multi-Step Commands: Consistently Method of Communication: Verbal Right Upper Extremity Examination RUE ROM Assessment RUE Assessment: Within Functional Limits Manual Muscle Testing - RUE: Within functional limits Left Upper Extremity Examination LUE ROM Assessment LUE Assessment: Within Functional Limits Manual Muscle Testing - LUE: Within functional limits Right Lower Extremity Examination Left Lower Extremity Examination Bed Mobility Bed Mobility Exam: Scooting/Bridging Level of Rush: Contact guard Physical/Nonphysical Assist: Verbal Cues, Nonverbal cues (demo/gestures), Minimal cues Assistive Device: Bed rails Bed Mobility Exam: Supine to Sit Level of Rush: Contact guard Physical/Nonphysical Assist: Verbal Cues, Nonverbal cues (demo/gestures), Minimal cues Assistive Device: Bed rails Transfers Transfer Exam: Sit to stand Level of Rush: Contact guard Physical/Nonphysical Assist: Nonverbal cues (demo/gestures), Verbal Cues, Minimal cues, Set-up required Assistive Device: Walker, rolling Transfer Exam: Stand to Sit Level of Rush: Contact guard Physical/Nonphysical Assist: Nonverbal cues (demo/gestures), Verbal Cues, Minimal cues, Set-up required Assistive Device: Walker, rolling Transfer Exam: Bed to Chair/Chair to Bed Level of Rush: Contact guard Physical/Nonphysical Assist: Supervision, Verbal Cues, Minimal cues Type of Transfer: (Pt ambulated prior to returning to sit her bedside chair) Assistive Device: Walker, rolling Self-Care Interventions Self Care/Home Management (ADLs) Time Entry: 26 Self-Care Interventions: OT provided room setup and line management in order to promote a safe environment for OOB activities. Pt required assist for balance with use of a RW and cues for safety. Grooming Grooming Level of Assistance: Setup, SBA Grooming Where Assessed: Edge of bed Grooming Interventions: To wash her face, hands, and brush her hair UE Dressing UE Dressing Level of Assistance: SBA, Setup UE Dressing Where Assessed: Edge of bed UE Dressing Interventions: Pt was able to manage her gown with transitional movements Lower Extremity Dressing Sock Level of Assistance: Close supervision, Setup LE Dressing Where Assessed: Bed level LE Dressing Interventions: Pt was able to don bilateral socks while sitting in bed requiring extra time and cues for technique. Standardized Assessments Aleida Index Feeding: Needs help cutting, spreading butter, etc., or requires modified diet Bathing: Dependent Grooming: Independent face/hair/teeth/shaving (implements provided) Dressing: Needs help but can do about half unaided Bowels: Continent Bladder: Continent Toilet Use: Needs some help but can do some things alone Transfers (Bed to Chair and Back): Minor help (verbal or physical) Mobility (on Level Surfaces): Walks with help or one person (verbal or physical) > 50 yards Stairs: Needs help (verbal, physical, carrying aid) Total Score: 65 Assessment Pt demonstrated decreased balance, activity tolerance and flexibility which limits her participation in valued occupations. Pt demonstrated ability to complete LB dressing while long sitting in bed but requiring extended time. Pt will benefit from further skilled OT services at this time for increased IND and safety with valued occupations. OT Findings: Impaired ADL performance, Decreased endurance/ventilation/gas exchange, Impaired postural/trunk control, Impaired functional mobility Evaluation/Treatment Tolerance: Patient limited by fatigue Rehab Potential: Good, to achieve stated therapy goals Barriers to Discharge: Comorbidities Eval Complexity Occupational Profile: Expanded review of medical/therapy records and additional review of physical,cognitive, or psychosocial history Performance Deficits: Activities of daily living (ADLs), Habits, Routines, Roles, Physical Clinical Decision Making: Low Overall Eval complexity: Low OT Recommendations Discharge Destination: Home with assistance, Home health OT Discharge Equipment: Patient owns appropriate equipment Plan Planned OT Interventions ADL retraining, Balance training, Strengthening, Functional mobility, Transfer training OT Frequency 2 - 5 times per week OT Duration 2 weeks Goals OT GOAL DETAILS Time Frame OT Goal 1: Pt will complete balance activity for >10 min with SBA. 2 weeks OT Goal 2: Pt will complete LB dressing sitting at EOB with SBA. 2 weeks OT Goal 3: Pt will complete all functional transfers at RW level with SBA. 2 weeks Written by Maximus Khanna on 12/22/24 at 2:40 PM. * Progress Notes - Jarvis Jewell - 12/22/2024 10:46 AM EDT Physical Therapy Evaluation Patient Name: Doron Felipe Today's Date: 12/22/2024 PT Discharge Recommendations: Home with assistance, Home health PT Equipment Recommended: Patient owns appropriate equipment History Doron Felipe is 74 y.o. y/o female admitted 12/21/2024 for work-up of Decompensated heart failure. Problem List Active Hospital Problems Diagnosis Date Noted Decompensated heart failure 12/21/2024 Cerebrovascular accident (CVA) ([facility]) 11/20/2024 Type 1 diabetes mellitus with hyperglycemia 08/04/2024 GERD (gastroesophageal reflux disease) 10/21/2021 SLE (systemic lupus erythematosus) ([facility]) 04/09/2021 Diabetic neuropathy with neurologic complication 09/06/2020 Hyperlipidemia 09/06/2020 EWELINA (obstructive sleep apnea) 09/06/2020 Hypertension 12/26/2016 Acquired hypothyroidism 05/05/2012 Depression 05/05/2012 Acute on chronic congestive heart failure 08/14/2024 Atrial fibrillation (CMS/HCC) 08/04/2024 Procedures Past Medical History Patient has a past medical history of 2019-nCoV acute respiratory disease (05/07/2022), Acute hypoxic respiratory failure (04/29/24), Alcohol use, Allergic (1972), Anemia, Anxiety, Arthritis, Asthma,Cellulitis (02/13/2024), Cellulitis of right leg (02/12/2024), CHF (congestive heart failure), Chronic respiratory failure (2019), Clotting disorder, Congenital malformation, COPD (chronic obstructive pulmonary disease) (2018), Coronary artery disease, CTS (carpal tunnel syndrome), Dental disease, Depression, Diabetes mellitus type I, Disease of thyroid gland, Eczema, Fracture of left proximal fibula (04/09/2021), Heart disease, Hepatitis B (1960), HL (hearing loss), Hypertension, Hyperthyroidism (1960), Hypothyroidism (1960), Infectious viral hepatitis, Myocardial infarction, Peripheral neuropathy, Pneumonia (06/01), Post-menopausal bleeding (05/08/2021), [...] fracture surgery; and Toe Surgery (Left, 02/07/2024). Precautions Medical Precautions: Fall precautions Subjective Patient agreeable to PT session. Participants in Care Family/Caregiver Present: No Presentation Oxygen Oxygen Therapy: Supplemental oxygen O2 Delivery Method: Nasal cannula O2 Flow Rate (L/min): 2 L/min Lines and Tubes Lines and Tubes: Intravenous access Pre-Session RN and patient gave consent for PT treatment session. Patient received Supine, Lines intact, Head of bed elevated, Bed alarm. Post-Session Patient positioned for comfort and pressure relief at end of session, all needs met. Lines intact, RN notified, Sitting in chair, Call light in reach, Chair alarm. Home Living/Set-up Lives With: Spouse Home Type: House Home Adaptive Equipment: Rolling walker, shower chair, Wheelchair-manual, Bedside commode Home Layout: One level (ramped entrance) Bathroom: Tub/Shower: Tub/Shower combo Bathroom: Toilet: Standard Bathroom: Accessibility: Accessible Prior Level of Function Receives Help From: Spouse, Caregiver Level of Mobility: Ambulatory- household only Mobility Rush: Independent gait with device History of Falls: No ADL Performance: Needs assistance Patient/Family Goals Full recovery Objective Pain Pain Score (0-10): no limiting pain reported Delirium Screening RASS: Alert and calm Confusion Assessment Method-ICU (CAM-ICU/PCAM-ICU) Feature 3: Altered Level of Consciousness: Negative Cognition Cognition Overall Cognitive Status: Within Functional Limits Arousal/Alertness: Appropriate responses to stimuli Mood/Behavior: Alert Orientation Level: Oriented X4 Method of Communication: Verbal Right Upper Extremity Examination RUE ROM Assessment RUE Assessment: Within Functional Limits Manual Muscle Testing - RUE: Within functional limits Left Upper Extremity Examination LUE ROM Assessment LUE Assessment: Within Functional Limits Manual Muscle Testing - LUE: Within functional limits Right Lower Extremity Examination RLE ROM Assessment RLE Assessment: Within Functional Limits Manual Muscle Testing - RLE: Within functional limits Left Lower Extremity Examination LLE ROM Assessment LLE Assessment: Within Functional Limits Manual Muscle Testing - LLE: Within functional limits Therapeutic Activity (10 minutes) Pt performed transitional skills and standing activity to promote functional mobility and progress activity tolerance. Cuing and feedback provided throughout for safe and efficient movement patterns to maximize outcomes. Skilled time required for management of lines and tubes and room set up for safe execution of treatment. Patient participating in therapeutic activities as described in detail in sections below. Bed Mobility Bed Mobility Exam: Scooting/Bridging Level of Rush: Contact guard Physical/Nonphysical Assist: Verbal Cues, Nonverbal cues (demo/gestures), Minimal cues Assistive Device: Bed rails Bed Mobility Exam: Supine to Sit Level of Rush: Contact guard Physical/Nonphysical Assist: Verbal Cues, Nonverbal cues (demo/gestures), Minimal cues Assistive Device: Bed rails Transfers Transfer Exam: Sit to stand Level of Rush: Contact guard Physical/Nonphysical Assist: Nonverbal cues (demo/gestures), Verbal Cues, Minimal cues, Set-up required Assistive Device: Walker, rolling Transfer Exam: Stand to Sit Level of Rush: Contact guard Physical/Nonphysical Assist: Nonverbal cues (demo/gestures), Verbal Cues, Minimal cues, Set-up required Assistive Device: Walker, rolling 10 mins of skilled TA time spent on the above functional mobility and activities including coordination of care with other team members and counseling the patient on appropriate activity and participation modifications, safety considerations, daily activities to perform to help improve functional mobility while remaining inpatient and discussion of current impairments and comorbidities and impacts they have on overall health. Discharge planning considerations and options presented and discussedwith patient. Gait Training (15 minutes) Device: Rolling walker Assistance: Contact guard assist, Minimal verbal cues, Minimal tactile cues, Additional assist for line management Distance: 25ft Gait Analysis: Slowed gait speed, shuffle gait pattern, flexed pattern, no overt LOB. Cuing and feedback provided throughout for safe and efficient movement patterns to maximize outcomes. Cuing provided on sequencing of assistive device and steps. Cues provided on efficient posture with ambulation. Feedback provided on performance and considerations for improved quality of gait. Standardized Assessments [facility] 6-Clicks Mobility Assessment Difficulty patient has [...] 3-5 steps with a railing?: A little [facility] 6-Clicks Mobility Assessment Total : 18 Assessment Patient presents with mild deficits from baseline levels of mobility. Has previously been to rehab facility and returned home. Does not wish to be readmitted to rehab facility upon discharge but would like to have home health. In addition could benefit from skilled services while admitted in order to progress functional mobility and prevent deconditioning. Impairments: Impaired gait dynamics/performance, Impaired functional mobility/transfers, Impaired balance, Decreased endurance, ventilation, and/or gas exchange Activity Limitations: Inability to ambulate household distances, Inability to transfer independently, Inability to ambulate community distances, Inability to ambulate independently Participation Restrictions: Self-care, Home management, Community leisure Activity Tolerance: Tolerates 10 - 20 min activity with multiple rests Evaluation/Treatment Tolerance: Patient limited by fatigue Diagnosis: Impaired functional mobility secondary to medical diagnosis Rehab Potential: Good, to achieve stated therapy goals Barriers to Discharge: Comorbidities Eval Complexity History Profile: 1 - 2 personal factors and/or comorbidities Clinical Presentation: Stable and/or uncomplicated characteristics Clinical Decision Making: Low complexity PT Recommendations Discharge Destination: Home with assistance, Home health PT Discharge Equipment: Patient owns appropriate equipment Plan Planned PT Interventions PT Frequency 2 - 5 times per week PT Duration 2 weeks Goals PT GOAL DETAILS Time Frame PT Goal 1: Pt will be able to perform bed mobility with SBA 2 weeks PT Goal 2: Pt will be able to perform sit to stand with LRAD and SBA 2 weeks PT Goal 3: Pt will be able to ambulate 50ft with LRAD and SBA 2 weeks Written by Jarvis Jewell on 12/22/24 at 1:30 PM. * H&P - Hung Whitten APRN - 12/21/2024 9:40 PM EDTAssociated Order(s): Consult to [facility] Consult to [facility] Consult performed by: Hung Whitten APRN Consult ordered by: Yanet Duff MD Chief complaint: Lower leg edema History Of Present Illness Doron Felipe is a 74 y.o. female with past medical history of COPD on 2L oxygen, HFpEF, SLE, Afib, prior LV thrombus on warfarin, recurrent right pleural effusion requiring thoracentesis. Patient was admitted from 11/20 - 11/29 for Acute ischemic stroke in Right temporal lobe. Hospital course complicated by acute on chronic hypoxic respiratory failure and hospital-acquired pneumonia. She was treated with vancomycin Zosyn as well as IV bumetanide was given for diuresis. Patient was discharged to [facility] for subacute rehab and she just returned home for 1 day. Patient reports ongoing lower leg edema since last hospitalization. Today patient developed chest pressure and reportedly general edema. EMS was called, received 1 dose of nitro EN route. Patient denies any chest pain or chest pressure currently. She had dyspnea on exertion. She denies fever, chills, abdominal pain, nausea, vomiting, constipation, or diarrhea. Patient received 1 dose IV Lasix with good diuresis. She has chronic wounds due to lupus. Past Medical History Past Medical History[1] Surgical History Surgical History[2] Family History[3] Social History She reports that she has never smoked. She has been exposed to tobacco smoke. She has never used smokeless tobacco. She reports current alcohol use of about 2.0 standard drinks of alcohol per week. She reports that she does not use drugs. Allergies Morphine, Morphine and codeine, Pravastatin, Spironolactone, Azathioprine, Cephalexin, Codeine, Penicillins, Rosuvastatin, Seasonal ic [cholestatin], Statins, Tetracycline, and Tetracyclines & related Scheduled: Current Scheduled Medications[4] Continuous: Current Continuous Medications[5] As needed: albuterol, 2.5 mg, q6h PRN glucose, 15-30 grams of glucose, q15 min PRN Or dextrose 10 %, 125 mL, q15 min PRN Or dextrose 10 %, 250 mL, q15 min PRN Or glucagon (human recombinant), 1 mg, q15 min PRN sodium chloride, 10 mL, PRN Prior to Admission medications Medication Sig Start Date End Date Taking? Authorizing Provider acetaminophen (Tylenol) 500 MG tablet Take 2 tablets by mouth every 6 hours as needed. Provider, Historical acetaminophen (Tylenol) 500 MG tablet Take 2 tablets by mouth every 6 hours as needed. Provider, Historical aspirin 81 MG EC tablet Take 1 tablet by mouth every evening. Provider, Historical Blood Glucose Monitoring Suppl (Blood Glucose Monitor System) w/Device kit Test blood sugars twice a day to calibrate cgm. Dx E10.65 09/16/24 Anne-Marie Kolb APRN brimonidine 0.2 % OP ophthalmic solution Administer 1 drop into both eyes nightly. 01/21/24 Provider, Historical Calcium Carbonate-Vitamin D (calcium-vitamin D) 500-200 MG-UNIT tablet Take 1 tablet by mouth daily. Provider, Historical cetirizine (ZyrTEC) 10 MG tablet Take 1 tablet by mouth every evening. Provider, Historical cetirizine (ZyrTEC) 10 MG tablet Take 1 tablet by mouth nightly. Provider, Historical DULoxetine (Cymbalta) [address] capsule Take 1 capsule (20 mg) by mouth 1 (one) time each day in themorning. Taking 80mg total 03/23/24 03/23/25 Alisa Kunz DO DULoxetine (Cymbalta) [address] capsule Take 1 capsule by mouth every morning. 11/01/24 Provider, Historical DULoxetine (Cymbalta) [address] capsule Take 1 capsule by mouth daily. Do not crush or chew. Take in addition to one 20mg capsule for a total of 80mg daily. Provider, Historical DULoxetine (Cymbalta) [address] capsule Take 1 capsule by mouth every morning. 10/26/24 Provider, Historical ezetimibe (Zetia) 10 MG tablet Take 1 tablet by mouth nightly. 05/29/20 Provider, Historical ezetimibe (Zetia) 10 MG tablet Take 1 tablet by mouth daily. 09/06/24 Provider, Historical ferrous sulfate 324 (65 Fe) MG EC tablet Take 1 tablet by mouth daily with breakfast. Do not crush,chew, or split. Provider, Historical Chdfbxjnzfv-Cjgsdgfsu-Twsacp (Trelegy Ellipta) 200-62.5-25 MCG/ACT aerosol powder Inhale 1 puff every morning. 11/19/24 Alisa Kunz DO folic acid (Folvite) 1 MG tablet Taking 1 tablet five days of the week 07/16/24 Noris Yee MD furosemide (Lasix) 80 MG tablet Take 1 tablet by mouth daily. 10/20/24 Alisa Kunz DO furosemide (Lasix) 80 MG tablet Take 1 tablet by mouth daily. 11/15/24 Provider, Historical gabapentin (Neurontin) 300 MG capsule Take 2 capsules by mouth 2 times a day. 11/01/24 Ramiro Kunz DO gabapentin (Neurontin) 300 MG capsule Take 2 capsules by mouth 2 times a day. 11/29/24 12/29/24 Dejan Hutson APRN Glucagon, rDNA, (Glucagon Emergency) 1 MG kit 1 mg as needed. 02/04/24 Provider, Historical glucose blood test strip Use to test blood sugars twice a day to calibrate cgm. Dx 10.65 09/16/24 Anne-Marie Kolb APRN HumaLOG KWIKPEN 100 UNIT/ML injection pen Inject 3 Units under the skin 3 times a day with meals. 08/28/24 Provider, Historical hydroxychloroquine (Plaquenil) 200 MG tablet Take 1.5 tablets by mouth daily. 09/15/24 03/14/25 Anca Payton MBBS hydroxychloroquine (Plaquenil) 200 MG tablet Take 1 tablet by mouth nightly. 09/15/24 Provider, Historical insulin glargine (Toujeo SoloStar) 300 UNIT/ML injection pen (1 UNIT DIAL) Inject 14 Units under the skin every morning. 08/04/24 08/04/25 Anne-Marie Kolb APRN insulin lispro (HumaLOG KWIKPEN) 100 UNIT/ML injection pen Inject 2-6 units before meals plus 1:60>150. Max tdd 30 units 08/04/24 Anne-Marie Kolb APRN ipratropium (Atrovent) 0.06 % nasal spray Administer 2 sprays into each nostril 4 times a day. 11/15/24 [facility]ahlil Hahn MD [facility] Use twice a day to calibrate cgm Dx E10.65 09/16/24 Anne-Marie Kolb APRN latanoprost (Xalatan) 0.005 % ophthalmic solution Administer 1 drop into both eyes nightly. Provider, Historical latanoprost (Xalatan) 0.005 % ophthalmic solution Administer 1 drop into both eyes nightly. 01/21/24 Provider, Historical levothyroxine (Synthroid, Levoxyl) 125 MCG tablet Take 1 tablet (125 mcg) by mouth 1 (one) time each day before breakfast. 12/31/23 Alisa Kunz, levothyroxine (Synthroid, Levoxyl) 125 MCG tablet Take 1 tablet by mouth daily with breakfast. 11/01/24 Provider, Historical lidocaine (Xylocaine) 2 % solution Take 5 mL by mouth as needed for mild pain. Swish and spit: Every 4 hours as needed. 11/15/24 Alisa Kunz DO metoprolol succinate XL (Toprol-XL) 25 MG 24 hr tablet Take 1 tablet by mouth every morning. 04/13/20Provider, Historical mycophenolate (CellCept) 500 MG tablet Take 2 tablets by mouth 2 times a day. 08/27/24 Ruthie Moy MD mycophenolate (Cellcept) 500 MG tablet Take 2 tablets by mouth 2 times a day. 08/27/24 Provider, Historical nitroglycerin (Nitrostat) 0.[address] 1 tablet under the tongue every 5 minutes as needed. 04/12/24 Provider, Historical oxygen (O2) gas Inhale 2 L nightly. via nasal canula Provider, Historical Pitavastatin Calcium (Livalo) 4 MG tablet Take 1 tablet by mouth daily. 10/29/24 Anne-Marie Kolb APRN Pitavastatin Calcium 4 MG tablet Take 1 tablet by mouth daily. 11/15/24 Provider, Historical Probiotic Product (acidophilus probiotic blend) capsule Take 1 capsule by mouth daily. Provider, Historical sucralfate (Carafate) 1 GM/10ML suspension Take 10 mL by mouth 4 times a day. 10/07/24 Chris Pepe MD Toujeo SoloStar 300 UNIT/ML injection pen (1 UNIT DIAL) Inject 6 Units under the skin 2 times a day. 08/28/24 Provider, Historical Trelegy Ellipta 200-62.5-25 MCG/ACT aerosol powder Take 1 puff by mouth daily. 11/19/24 Provider, Historical Urine Glucose-Ketones Test (Keto-Diastix) strip 1 strip by In Vitro route daily. Provider, Historical warfarin (Coumadin) 5 MG tablet Take 2.5 mg on Friday and 5mg the rest of the week and follow up with your warfarin pharmacist. 07/15/24 Marquita Arndt MD Warfarin Sodium (warfarin, Coumadin, intermittent dosing) Take as directed per After Visit Summary.11/29/24 Isael Sage MD lisinopril 20 MG tablet Take 1 tablet (20 mg total) by mouth 1 (one) time each day. Take one tableteach morning 07/17/21 08/20/21 Alisa Kunz L, DO Labs (in last 24 hours): CBC: Lab Results Component Value Date WBC 5.02 12/21/2024 RBC 3.75 (L) 12/21/2024 HGB 11.3 12/21/2024 HCT 35.3 12/21/2024 PLT 350 12/21/2024 MCV 94 12/21/2024 MCH 30.1 12/21/2024 MCHC 32.0 12/21/2024 RDW 14.7 (H) 12/21/2024 NRBC 0.0 12/21/2024 Differential: Lab Results Component Value Date WBC 5.02 12/21/2024 NEUTOPHILPCT 70 12/21/2024 LYMPHOPCT 16 12/21/2024 MONOPCT 10 12/21/2024 EOSPCT 1 12/21/2024 Coagulation: Lab Results Component Value Date INR 1.7 (H) 12/21/2024 Renal: Lab Results Component Value Date NA 134 (L) 12/21/2024 K 3.5 (L) 12/21/2024 CL 94 (L) 12/21/2024 CO2 28 12/21/2024 BUN 26 (H) 12/21/2024 CREATININE 0.81 12/21/2024 GLUCOSE 285 (H) 12/21/2024 CALCIUM 8.8 (L) 12/21/2024 MG 2.1 12/21/2024 PHOS 3.0 12/21/2024 Liver: Lab Results Component Value Date AST 47 (H) 12/21/2024 ALT 24 12/21/2024 BILITOT 0.5 12/21/2024 Glucose: Lab Results Component Value Date PGLU 162 (H) 12/21/2024 Lab Results Component Value Date HGBA1C 8.7 (H) 11/20/2024 Microbiology: Results No results found for the last 48 hours. Imaging (in last 24 hours): XR Chest 1 View Result Date: 12/21/2024 Opacity in the left lung base in the retrocardiac region consistent with an area of atelectasis or infection with small left pleural effusion. Medium-sized right pleural effusion with underlying airspace disease may related to volume loss and/or infection. CRITICAL RESULT: No. COMMUNICATION: Per this written report. Drafted by Vaughn Kwan MD on 12/21/2024 5:33 PM Final report signed by Vaughn Kwan MD on 12/21/2024 5:34 PM Personally review EKG: V apced EKG/Echo: Encounter Date: 12/21/24 ECG Adult Result Value EKG DIAGNOSIS CLASS Abnormal Ventricular Rate 60 Atrial Rate 70 QRSD Interval 186 QT Interval 542 QTC Interval 542 R Norton -70 T Wave Norton 116 Diagnosis Ventricular-paced rhythm Diagnosis Abnormal ECG *Note: Due to a large number of results and/or encounters for the requested time period, some results have not been displayed. A complete set of results can be found in Results Review. Echo, Adult Transthoracic Complete Result Date: 11/21/2024 Left Ventricle: The left ventricle is dilated. No left ventricular mass or thrombus is seen. The LVEF as measured by biplane volume is 44%. Unable to assess diastolic function due to mitral valve disease. The left ventricular filling pressure is elevated. See diagram below for wall motion findings.The septal motion is most consistent with a conduction abnormality. Right Ventricle: The right ventricle is dilated. A catheter/lead is present in the right ventricle. The right ventricular systolic function is grossly normal. The estimated right ventricular systolic pressure is 53 mmHg. Mitral Valve: The structure and motion of the mitral valve leaflet suggest that the MR etiology is most likelydue to type IIIc (systolic restriction - asymmetric) Obie classification. There is restrictedmotion of the posterior leaflet. There is calcification [...] is no recent study available for direct [id number] comparison. Echo, Adult Transthoracic (TTE) Limited Result Date: 09/13/2024 Left Ventricle: The left ventricular systolic function is normal. The LVEF is visually estimated at55 - 60%. Pericardium: No pericardial effusion. Compared to the most recently available prior study, and allowing for differences in image quality and technique, there is no significant interval change noted. Echo, Adult Transthoracic Complete Result Date: 07/15/2024 [...] quality and technique, thrombus seen in apex.. Last Recorded Vitals Vitals: 12/21/24 1840 12/21/24 1900 12/21/24 19312/21/242029 BP: (!) 193/78 (!) 182/86 (!) 190/79 BP Location: Patient Position: Pulse: 60 60 60 60 Resp: Temp: 36.4 ??C (97.5 ??F) TempSrc: Oral SpO2: 97% 100% 99% Weight: Height: No intake or output data in the 24 hours ending 12/21/242139 Admission weight: Weight: 65.2 kg (143 lb 11.8 oz) Review of Systems Cardiovascular: Positive for leg swelling. Skin: Positive for wound. All other systems reviewed and are negative. Other as mentioned in history of present illness Physical Exam Vitals reviewed. Constitutional: Appearance: Normal appearance. HENT: Mouth/Throat: Mouth: Mucous membranes are moist. Pharynx: Oropharynx is clear. Eyes: Extraocular Movements: Extraocular movements intact. Conjunctiva/sclera: Conjunctivae normal. Pupils: Pupils are equal, round, and reactive to light. Cardiovascular: Rate and Rhythm: Normal rate and regular rhythm. Pulses: Dorsalis pedis pulses are 1+ on the right side and 1+ on the left side. Posterior tibial pulses are 1+ on the right side and 1+ on the left side. Pulmonary: Effort: Pulmonary effort is normal. Comments: Bilateral posterior lung bases with crackles, other lung choi clear but diminished Musculoskeletal: Right lower le+ Pitting Edema present. Left lower le+ Pitting Edema present. Skin: General: Skin is warm and dry. Capillary Refill: Capillary refill takes 2 to 3 seconds. Comments: Bilateral lower figueroa with ulcers covered by scabs. Bilateral lower leg slightly red ( perpatient, they are at baseline) Neurological: Mental Status: She is alert and oriented to person, place, and time. Psychiatric: Mood and Affect: Mood normal. Behavior: Behavior normal. Thought Content: Thought content normal. Judgment: Judgment normal. Assessment and plan: Principal problem: Decompensated heart failure - Principal Problem: Decompensated heart failure Active Problems: Depression Hypertension Acquired hypothyroidism Diabetic neuropathy with neurologic complication Hyperlipidemia EWELINA (obstructive sleep apnea) SLE (systemic lupus erythematosus) ([facility]) GERD (gastroesophageal reflux disease) Type 1 diabetes mellitus with hyperglycemia Cerebrovascular accident (CVA) ([facility]) Atrial fibrillation ([facility]) Acute on chronic congestive heart failure Acute on chronic HFmrEF - echo on 11/20/24: EF 44%. No left ventricular mass or thrombus. - Pro BNP 15649 - Had 80 mg IV Lasix in ER. Will re-evaluate in a.m. for diuresis - Monitor I&O with daily weight - Start 2 g sodium diet with 1800 mL fluid restriction Recent ischemic stroke in Right temporal lobe - Per neurology: Secondary stroke prophylaxis: Atorvastatin 40 mg, restarted warfarin and stopped aspririn Diabetes mellitus type 1 with peripheral neuropathy - A1c 8.7 on 11/20/24 - Patient is on glargine 6 units twice a day, will start 5 units twice a day with correction insulin per fingerstick - On gabapentin Hypertension - On Toprol-XL Chronic hypoxic respiratory failure secondary to COPD and recurrent right pleural effusion - s/p multiple thoracentesis and chest tube but talc slurry pleurodesis on 08/19 24 that failed - On 2 L oxygen at all time - Substitute Trelegy with Dulera and Spiriva - Albuterol nebulizer as needed History of Atrial Fibrillation, History of Complete Heart Block s/p PPM, History of LV Apical Thrombus: - LV apical thrombus incidentally found on echo 01/2024 while patient was on Eliquis. Patient started on Warfarin; no LV thrombus noted on most recent echo (07/12/2024). On ASA, metoprolol succinate 25mg daily (rate control) and warfarin for anticoagulation. No cardioversion planned with recent CVA.Follows with [facility]. Echo on 11/20/24: EF 44%. No left ventricular mass or thrombus. - On metoprolol extended release - Sub therapeutic INR, pharmacy to dose warfarin Hypokalemia - Replace and monitor Other Chronic Medical Conditions: - CAD s/p CABG (2019) and Balloon Angioplasty (2020): Follows with [facility]. - SLE, Fibromyalgia: Follows with rheumatology. On CellCept and Plaquenil - HLD: Lipitor, Zetia. - Hypothyroidism: Levothyroxine. - EWELINA: Follows with sleep medicine; has CPAP at home that she has not been using for awhile. Useshome baseline 2L O2 at night. - Osteopenia, History of T12 Burst Fracture: On no specific osteopenia treatment. DEXA due 01/2025.On calcium with vitamin-D - Anxiety, Depression: Continue duloxetine - Allergies, Gustatory Rhinitis: Continue Zyrtec - RLS: Gabapentin as above. - Glaucoma: On Alphagan and xalatan eyedrops Diet Adult diet Diet texture: Easy to Chew 7; Carbohydrate restriction: Consistent Carb 2 (80 gm max/meal); Sodium restriction: 2,000 mg Na; Dietary fluid restriction / 24h: 1800 ml Fluid DVT prophylaxis Coumadin Code status DNR/DNI [1] Past Medical History: Diagnosis Date 2018-nCoV acute respiratory disease 05/07/2022 Acute hypoxic respiratory failure 04/29/24 - Pt had the flu last week; still recovering ; wet cough still lingers- CT shows atelectasis likeley due to shallow breaths from T12 compression fracture pain - Pt saturating well on room air prior to discharge PLAN- Pt to continue with respiratory spirometry while at home to aid in airflow and opening of airway Alcohol use Allergic 1973 Anemia Anxiety Arthritis Asthma Cellulitis 02/13/2024 Cellulitis of right leg 02/12/2024 CHF (congestive heart failure) Chronic respiratory failure 2019 Clotting disorder Congenital malformation COPD (chronic obstructive pulmonary disease) 2018 Coronary artery disease CTS (carpal tunnel syndrome) Dental disease Depression Diabetes mellitus type I Disease of thyroid gland Eczema Fracture of left proximal fibula 04/09/2021 - Left proximal fibula fracture on 02/2021 after a mechanical fall. - Established with orthopedic surgery, no surgical intervention, WBAT. Heart disease Hepatitis B 1960 HL (hearing loss) Hypertension Hyperthyroidism 1960 Hypothyroidism 1960 Infectious viral hepatitis Myocardial infarction Peripheral neuropathy Pneumonia 06/01 Post-menopausal bleeding 05/08/2021 [...] Was ableto get patient in with [facility] ophthalmology right after our clinic appointment [...] CARDIAC PACEMAKER PLACEMENT N/A Pacemaker Placement from [facility] CARPAL TUNNEL RELEASE N/A Neuroplasty Decompression Median Nerve At Carpal Tunnel from [facility] CERVICAL BIOPSY W/ LOOP ELECTRODE EXCISION 2010 SECTION, CLASSIC 1976, 1979 SECTION, LOW TRANSVERSE N/A Section from [facility] COLONOSCOPY N/A Complete Colonoscopy from [facility] CORONARY ARTERY BYPASS GRAFT N/A CABG from [facility] EYE SURGERY N/A Eye Surgery from [facility] FRACTURE SURGERY SPINE SURGERY THORACENTESIS TOE SURGERY Left 02/07/2024 hematoma removal of upper skin on L big toe TONSILLECTOMY N/A Tonsillectomy from avox [3] Family History Problem Relation Name Age [...] disease Other Gracy Marry Otf Neville [4] atorvastatin, 40 mg, Oral, Nightly brimonidine, 1 drop, Both Eyes, Nightly [START ON 12/22/2024] calcium-vitamin D, 1 tablet, Oral, Daily cetirizine, 10 mg, Oral, q PM [START ON 12/22/2024] DULoxetine, 20 mg, Oral, q AM [START ON 12/22/2024] DULoxetine, 60 mg, Oral, Daily ezetimibe, 10 mg, Oral, Nightly gabapentin, 600 mg, Oral, BID hydroxychloroquine, 200 mg, Oral, Nightly insulin glargine-yfgn, 5 Units, Subcutaneous, BID [START ON 12/22/2024] insulin lispro, 0-5 Units, Subcutaneous, TID with meals insulin lispro, 0-3 Units, Subcutaneous, Twice at night latanoprost, 1 drop, Both Eyes, Nightly [START ON 12/22/2024] levothyroxine, 125 mcg, Oral, Daily before breakfast [START ON 12/22/2024] metoprolol succinate XL, 25 mg, Oral, q AM [START ON 12/22/2024] Tiotropium [place] Monohydrate, 2 puff, Inhalation, Daily And [START ON 12/22/2024] mometasone-formoterol, 2 puff, Inhalation, BID mycophenolate, 1,000 mg, Oral, BID sodium chloride, 10 mL, Intravenous, q12h [5] * ED Provider Notes - Doc Metz MD - 12/21/2024 4:24 PM EDT Images from the original note were not included. - HPI Chief Complaint Patient presents with Chest Pain 74 y.o w/ PMHx of 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, recurrent right pleural effusion who presents with 1 day of worsening SOB. Patient reports more chest pressure than pain. She reports that she is on home 2 L nasal cannula secondary to chronic respiratory failure. She reports taking 80 mg Lasix daily at home. She reports symptoms are similar to prior episodes of ???fluid on her lungs. Denies fever, increased sputum production, abdominal pain, nausea, vomiting. Patient History Past Medical History[1] Surgical History[2] Family History[3] Social History[4] Allergies: Allergies[5] Physical Exam ED Triage Vitals [12/21/24 1630] Temp Heart Rate Resp BP 36.6 ??C (97.9 ??F) 62 14 (!) 148/83 SpO2 Temp Source Heart Rate Source Patient Position 92 % Oral -- Lying BP Location FiO2 (%) Left arm -- Physical Exam Constitutional: General: She is not in acute distress. Appearance: She is ill-appearing (Chronically). Eyes: Extraocular Movements: Extraocular movements intact. Cardiovascular: Rate and Rhythm: Normal rate and regular rhythm. Pulmonary: Effort: Pulmonary effort is normal. Breath sounds: Examination of the right-middle field reveals decreased breath sounds. Examination of the right-lower field reveals decreased breath sounds. Decreased breath sounds and wheezing present. No rhonchi or rales. Abdominal: Palpations: Abdomen is soft. Tenderness: There is no abdominal tenderness. There is no guarding or rebound. Skin: General: Skin is warm and dry. Neurological: Mental Status: She is alert and oriented to person, place, and time. Psychiatric: Mood and Affect: Mood normal. EASI ?? Total Score: 0 Km Coma Scale Score: 15 Mini Nutritional Screening Score : 12 TRST Assessment Total: 1 ED Course & MDM - Assessment: 74 y.o. female presents to ED with complaint of shortness of breath. 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 This complicates the clinical picture because it Comorbidities: may be exacerbating symptoms Differential Diagnosis: Pneumonia, CHF exacerbation, pleural effusion, others In order to fully explore the differential diagnosis the following treatments and tests were ordered: ED Medication Administration from 12/21/2024 1623 to 12/21/20242128 Date/Time Order Dose Route Action 12/21/20242018 EDT furosemide (Lasix) injection 80 mg 80 mg Intravenous Given All Other Orders Ordered Status Ordering Provider 12/21/242127 Vital Signs Every 4 hours Placed in And Linked Group Acknowledged SHERICE, ANTONIO-SUSHMA C 12/21/242127 Pulse Oximetry Every 4 hours Placed in And Linked Group Acknowledged SHERICE, ANTONIO-SUSHMA C 12/21/242127 POCT Glucose (if patient NPO, on TPN or continuous nutrition) Every 6 hours Comments: If patient NPO or receiving continuous nutrition (tube feeds or TPN) check POC BG every 6hours. Order ID Start Status Ordering Provider [id number] 12/22/24 0000 Acknowledged WHITTEN, MAN-SUSHMA C [id number] 12/22/24 0600 Acknowledged WHITTEN, MAN-SUSHMA C [id number] 12/22/24 1200 Acknowledged WHITTEN, MAN-SUSHMA C 12/22/24 1800 Scheduled WHITTEN, MAN-SUSHMA C 12/23/24 0000 Scheduled WHITTEN, MAN-SUSHMA C 12/23/24 0600 Scheduled WHITTEN, MAN-SUSHMA C 12/23/24 1200 Scheduled WHITTEN, MAN-SUSHMA C 12/23/24 1800 Scheduled WHITTEN, MAN-SUSHMA C 12/24/24 0000 Scheduled WHITTEN, MAN-SUSHMA C 12/24/24 0600 Scheduled WHITTEN, MAN-SUSHMA C 12/24/24 1200 Scheduled WHITTEN, MAN-SUSHMA C 12/24/24 1800 Scheduled WHITTEN, MAN-SUSHMA C 12/25/24 0000 Scheduled WHITTEN, MAN-SUSHMA C 12/25/24 0600 Scheduled WHITTEN, MAN-SUSHMA C 12/25/24 1200 Scheduled WHITTEN, MAN-SUSHMA C 12/25/24 1800 Scheduled WHITTEN, MAN-SUSHMA C 12/26/24 0000 Scheduled WHITTEN, MAN-SUSHMA C 12/26/24 0600 Scheduled WHITTEN, MAN-SUSHMA C 12/26/24 1200 Scheduled WHITTEN, MAN-SUSHMA C 12/26/24 1800 Scheduled WHITTEN, MAN-SUSHMA C Acknowledged WHITTEN, MAN-SUSHMA C 12/21/242127 Intake and output Every 6 hours Acknowledged WHITTEN, MAN-SUSHMA C 12/21/242127 POCT Glucose - Post Prandial 3 times daily after meals Comments: Check BG 2 hours after each meal. Order ID Start Status Ordering Provider [id number] 12/21/24 2328 Acknowledged WHITTEN, MAN-SUSHMA C [id number] 12/22/24 0900 Acknowledged WHITTEN, MAN-SUSHMA C [id number] 12/22/24 1300 Acknowledged WHITTEN, MAN-SUSHMA C 12/22/24 1900 Scheduled WHITTEN, MAN-SUSHMA C 12/23/24 0900 Scheduled WHITTEN, MAN-SUSHMA C 12/23/24 1300 Scheduled WHITTEN, MAN-SUSHMA C 12/23/24 1900 Scheduled WHITTEN, MAN-SUSHMA C 12/24/24 0900 Scheduled WHITTEN, MAN-SUSHMA C 12/24/24 1300 Scheduled WHITTEN, MAN-SUSHMA C 12/24/24 1900 Scheduled WHITTEN, MAN-SUSHMA C 12/25/24 0900 Scheduled WHITTEN, MAN-SUSHMA C 12/25/24 1300 Scheduled WHTITEN, MAN-SUHSMA C 12/25/24 1900 Scheduled WHITTEN, MAN-SUSHMA C 12/26/24 0900 Scheduled WHITTEN, MAN-SUSHMA C 12/26/24 1300 Scheduled WHITTEN, MAN-SUSHMA C 12/26/24 1900 Scheduled WHITTEN, MAN-SUSHMA C 12/27/24 0900 Scheduled WHITTEN, MAN-SUSHMA C 12/27/24 1300 Scheduled WHITTEN, MAN-SUSHMA C 12/27/24 1900 Scheduled WHITTEN, MAN-SUSHMA C 12/28/24 0900 Scheduled WHITTEN, MAN-SUSHMA C 12/28/24 1300 Scheduled WHITTEN, MAN-SUSHMA C 12/28/24 1900 Scheduled WHITTEN, MAN-SUSHMA C 12/29/24 0900 Scheduled WHITTEN, MAN-SUSHMA C 12/29/24 1300 Scheduled WHITTEN, MAN-SUSHMA C 12/29/24 1900 Scheduled WHITTEN, MAN-SUSHMA C Acknowledged WHITTEN, MAN-SUSHMA C 12/21/248 POCT Glucose - Before Meals and Bedtime 4 times daily before meals and at bedtime Order ID Start Status Ordering Provider [id number] 12/21/24 2200 Acknowledged WHITTEN, MAN-SUSHMA C [id number] 12/22/24 0700 Acknowledged WHITTEN, MAN-SUSHMA C [id number] 12/22/24 1100 Acknowledged WHITTEN, MAN-SUSHMA C 12/22/24 1700 Scheduled WHITTEN, MAN-SUSHMA C 12/22/24 2200 Scheduled WHITTEN, MAN-SUSHMA C 12/23/24 0700 Scheduled WHITTEN, MAN-SUSHMA C 12/23/24 1100 Scheduled WHITTEN, MAN-SUSHMA C 12/23/24 1700 Scheduled WHITTEN, MAN-SUSHMA C 12/23/24 2200 Scheduled WHITTEN, MAN-SUSHMA C 12/24/24 0700 Scheduled WHITTEN, MAN-SUSHMA C 12/24/24 1100 Scheduled WHITTEN, MAN-SUSHMA C 12/24/24 1700 Scheduled WHITTEN, MAN-SUSHMA C 12/24/24 2200 Scheduled WHITTEN, MAN-SUSHMA C 12/25/24 0700 Scheduled WHITTEN, MAN-SUSHMA C 12/25/24 1100 Scheduled WHITTEN, MAN-SUSHMA C 12/25/24 1700 Scheduled WHITTEN, MAN-SUSHMA C 12/25/24 2200 Scheduled WHITTEN, MAN-SUSHMA C 12/26/24 0700 Scheduled WHITTEN, MAN-SUSHMA C 12/26/24 1100 Scheduled WHITTEN, MAN-SUSHMA C 12/26/24 1700 Scheduled WHITTEN, MAN-SUSHMA C 12/26/24 2200 Scheduled WHITTEN, MAN-SUSHMA C 12/27/24 0700 Scheduled WHITTEN, MAN-SUSHMA C 12/27/24 1100 Scheduled WHITTEN, MAN-SUSHMA C 12/27/24 1700 Scheduled WHITTEN, MAN-SUSHMA C 12/27/24 2200 Scheduled WHITTEN, MAN-SUSHMA C 12/28/24 0700 Scheduled WHITTEN, MAN-SUSHMA C 12/28/24 1100 Scheduled WHITTEN, MAN-SUSHMA C 12/28/24 1700 Scheduled WHITTEN, MAN-SUSHMA C 12/28/24 2200 Scheduled WHITTEN, MAN-SUSHMA C 12/29/24 0700 Scheduled WHITTEN, MAN-SUSHMA C 12/29/24 1100 Scheduled HUNG WHITTEN 12/29/24 1700 Scheduled HUNG WHITTEN 12/29/24 2200 Scheduled HUNG WHITTEN MAN-YING C 12/21/242127 Weigh patient Daily Acknowledged HUNG WHITTEN 12/21/242127 DNR / DNI Continuous Acknowledged HUNG WHITTEN 12/21/242127 Diet effective now Canceled HUNG WHITTEN 12/21/242127 Reason for no VTE Prophylaxis - hospital admission - medications Once Completed HUNG WHITTEN 12/21/242127 Do Not Give Nicotine Replacement Until discontinued Acknowledged HUNG WHITTEN 12/21/242127 Hold scheduled meal/prandial insulin, if patient NPO or if patient eats less than 50%of meal. Until discontinued HUNG Palacio 12/21/242127 Do not hold scheduled basal insulin, if applicable, without physician order. Until discontinued HUNG Palacio 12/21/242127 Notify Provider Until discontinued HUNG Palacio 12/21/242127 For POC BG 71 - 89 mg/dL Until discontinued Comments: If patient is able to take PO (does not have NPO order) give 15 -20 gm of carbohydrate plus protein snack. Options include: 3 guillermina crackers (15 gm); 2 pkg. saltine crackers (16 gm); 4 oz cup applesauce (17 gm); ?? oz peanut butter,1 container (5 gm); 1 cup regular pudding (21 gm); or 1 cup sugar free pudding (10 gm). Recheck POC BG 30 minutes after administration and follow hypoglycemia prevention protocol. Acknowledged HUNG WHITTEN 12/21/242127 For POC BG 51 - 70 mg/dL Until discontinued Comments: If patient is able to take PO (does not have NPO order) give 15gm of fast acting carbohydrates. Options include 4 oz of juice (apple juice preferred in renal patients), 4 oz non-diet soda or 8 oz milk. Recheck POC BG 15 minutes after administration and retreat if necessary until POC BG is> 100. Acknowledged HUNG WHITTEN 12/21/242127 For POC BG less than or equal to 50 mg/dL Until discontinued Comments: After patient receives 25gm Dextrose and patient alert and can take PO (does not have NPOorder) give 30gm fast acting carbohydrates. Options include 8 oz of juice (apple juice preferred inrenal patients), 8 oz non-diet soda or 16 oz milk. Recheck POC BG 15 minutes after administration and repeat if necessary until POC BG >100. Acknowledged HUNG HWITTEN 12/21/242127 Initiate observation status Once Completed HUNG WHITTEN 12/21/242127 Mobility Orders Until discontinued Acknowledged HUNG WHITTEN 12/21/242127 Notify physician (specify parameters) Until discontinued Acknowledged HUNG WHITTEN 12/21/242127 Insert peripheral IV Once Placed in And Linked Group Completed HUNG WHITTEN 12/21/242127 Saline lock IV Once Placed in And Linked Group Completed HUNG WHITTEN 12/21/242057 POCT glucose meter PROCEDURE ONCE Final result YANET DUFF 12/21/242036 Magnesium Once Final result HUNG WHITTEN 12/21/242036 Phosphorus Once Final result HUNG WHITTEN 12/21/241958 Consult to [facility] Medicine [facility] Once Specialty: Internal Medicine Provider: (Not yet assigned) Completed DOC METZ 12/21/241958 ED to floor bed request Once Completed DOC METZ 12/21/24 1716 Troponin T, High Sensitivity, 2 Hour, Plasma PROCEDURE ONCE Final result YANET DUFF 12/21/24 1818 BNP STAT Final result SINANCuauhtemoc DOC M 12/21/24 1639 CBC w/diff STAT Final result SHERINANGIENicole Fernández 12/21/24 1639 PT-INR STAT Final result YANET UDFF 12/21/24 1639 CMP STAT Final result YANET DUFF 12/21/24 1639 Troponin now and 120 min STAT Final result YANET DUFF 12/21/24 1639 Insert peripheral IV Once Acknowledged YANET DUFF 12/21/24 1639 XR Chest 1 View One time imaging Final result YANET DUFF 12/21/24 1625 ECG Adult Once Final result YANET DUFF 12/21/242127 POCT Glucose - PRN As needed Comments: Check POC BG at 0300 if patient received correction insulin or was hypoglycemic at bedtime. Acknowledged HUNG WHITTEN 12/21/242127 POCT Glucose As needed Comments: Recheck POC BG 15 minutes after any hypoglycemia treatment. Continue until POC BG is greater than 100 mg/dL. Acknowledged HUNG WHITTEN Clinical Impressions as of 12/22/24 1339 Pleural effusion Acute on chronic congestive heart failure, unspecified heart failure type Social Determinates of Health Risks (including Economic Stability, Education and level of understanding, Healthcare access and quality and concerning social factors): None identified on this visit On initial evaluation, patient is hemodynamically stable. Patient has chronic respiratory failure on 2 L nasal cannula at home. Patient reports increasing shortness of breath over the last day. Patient has history of recurrent right pleural effusion requiring multiple thoracentesis. Patient reportsthat symptoms are similar to prior episodes of this. On exam, patient has decreased right- sided breath sounds. Labs were personally reviewed and demonstrated no leukocytosis, mild hypokalemia, elevated AST and alk-phos, no significant delta troponin, elevated BNP at 12,000. XR was personally interpreted and I appreciate obvious right-sided pleural effusion. Radiology readin agreement and also adds opacity in the left lung base in the retrocardiac region consistent withan area of atelectasis or infection with small left pleural effusion. Medium-sized right pleural effusion with underlying airspace disease may related to volume loss and/or infection. Please see fullradiology report for full details. In the setting of elevated BNP and moderate right-sided pleural effusion, patient treated with 80 mg Lasix IV. Given need for IV diuresis, I have had an interactive discussion with the service about the patient's case, who agrees to evaluate the patient in the ED. After our discussion and their evaluation, they have agreed to admit the patient to their service and accept primary responsibilityof the patient moving forward. Ultimately, this patient was Was admitted (Admission) The primary encounter diagnosis was Pleural effusion. A diagnosis of Acute on chronic congestive heart failure, unspecified heart failure type was also pertinent to this visit.. Patient believed to require admission for the listed diagnoses. The Internal Medicine service was consulted for admission and was agreeable to admit to Acute Floor (Med/Surg). ED Prescriptions None Disposition Admit Admitting/Attending Physician: ANDRA AQUINO [[id number]] Provider Care Team: MICHAEL WIGGINS HOSPITALIST ADMISSION [[id number]] Are they the primary team?: Yes [1] - [1] Past Medical History: Diagnosis Date 2018-nCoV acute respiratory disease 05/07/2022 Acute hypoxic respiratory failure 04/29/24 - Pt had the flu last week; still recovering ; wet cough still lingers- CT shows atelectasis likeley due to shallow breaths from T12 compression fracture pain - Pt saturating well on room air prior to discharge PLAN- Pt to continue with respiratory spirometry while at home to aid in airflow and opening of airway Alcohol use Allergic 1973 Anemia Anxiety Arthritis Asthma Cellulitis 02/13/2024 Cellulitis of right leg 02/12/2024 CHF (congestive heart failure) Chronic respiratory failure 2019 Clotting disorder Congenital malformation COPD (chronic obstructive pulmonary disease) 2018 Coronary artery disease CTS (carpal tunnel syndrome) Dental disease Depression Diabetes mellitus type I Disease of thyroid gland Eczema Fracture of left proximal fibula 04/09/2021 - Left proximal fibula fracture on 02/2021 after a mechanical fall. - Established with orthopedic surgery, no surgical intervention, WBAT. Heart disease Hepatitis B 1960 HL (hearing loss) Hypertension Hyperthyroidism 1960 Hypothyroidism 1960 Infectious viral hepatitis Myocardial infarction Peripheral neuropathy Pneumonia 06/01 Post-menopausal bleeding 05/08/2021 [...] Was ableto get patient in with [facility] ophthalmology right after our clinic appointment [...] CARDIAC PACEMAKER PLACEMENT N/A Pacemaker Placement from avox CARPAL TUNNEL RELEASE N/A Neuroplasty Decompression Median Nerve At Carpal Tunnel from avox CERVICAL BIOPSY W/ LOOP ELECTRODE EXCISION 2010 SECTION, CLASSIC 1976, 1979 SECTION, LOW TRANSVERSE N/A Section from avox COLONOSCOPY N/A Complete Colonoscopy from avox CORONARY ARTERY BYPASS GRAFT N/A CABG from avox EYE SURGERY N/A Eye Surgery from avox FRACTURE SURGERY SPINE SURGERY THORACENTESIS TOE SURGERY Left 02/07/2024 hematoma removal of upper skin on L big toe TONSILLECTOMY N/A Tonsillectomy from avox [3] Family History Problem Relation Name Age of Onset Conversions - Other Mother gracy stamper alfredito kelin Goiter (Diffuse Nontoxic) Heart disease Mother gracy stamper alfredito kelin Hypertension Mother gracy stamper alfredito kelin Stroke Mother gracy stamper alfredito kelin COPD Mother gracy stamper alfredito kelin Alpha-1 antitrypsin deficiency Mother gracy stamper alfredito kelin Arthritis Father Doron E [place] Hypercholesterolemia Father Doron Henriquezer Obesity Father Doron Henriquezer COPD Father Doron E [place] Alcohol abuse Father Doron Arriaza Alfredito Diabetes Sibling Cancer Other Doron E Alfredito Conversions - Other Other Goiter (Diffuse Nontoxic) Heart disease Other Gracy Marry Stamper [place] Kelin [4] Tobacco Use Smoking status: Never Passive exposure: Past (2nd hand smoke) Smokeless tobacco: Never Vaping Use Vaping status: Never Used Substance Use Topics Alcohol use: Yes Alcohol/week: 2.0 standard drinks of alcohol Types: 1 Cans of beer, 1 Shots of liquor per week Comment: Nightly Drug use: Never [5] Allergies Allergen Reactions Morphine Hallucinations, Rash and Other - please document in the comment field Morphine And Codeine Rash and Hallucinations Pravastatin Unknown - Patient states they do not know rxn details and Rash Doesn't remember this rxn-from 3 yrs ago Spironolactone Dizziness Azathioprine Unknown - Patient states they do [...] the comment field Tetracyclines & Related Rash Doc Metz MD Resident 12/22/24 9679 Cosigned by Yanet Duff MD at 12/23/2024 12:05 PM EDT Associated attestation - Yanet Duff MD - 12/23/2024 12:05 PM EDT I saw and evaluated the patient with the resident/fellow. I discussed the case with the resident/fellow and agree with the findings and plan as documented. * ED Triage Notes - Camila Blair RN - 12/21/2024 4:24 PM EDT Pt presents via EMS from home with chest pressure that started today. Took one nitroglycerin prior to arrival without relief. EMS gave 324 ASA. Pt has hx of [place], CAD s/p stents x 4, pacemaker, CVA last month. Pt on 2 liters NC baseline. VSS. documented in this encounter Plan of Treatment Upcoming Encounters Date Type Department Care Team (Late st Contact Info) Description 01/06/2025 2:00 PM EDT Office Visit [facility] Medicine Specialties [address] [place] [address] Lavern Shoemaker MD [address] [place] [address] 01/12/2025 1:10 PM EST Office Visit [facility] [address] [place] [address] Noris Yee MD [address] [place] [address] 01/12/2025 2:00 PM EST Office Visit [facility] [address] [place] [id number] Ezra Fine MD [address] [place] [address] 01/27/2025 10:00 AM EST Office Visit [facility] [address] [place] [address] Sujit Cole, [employer] MACHINE OPERATOR [address] [place] [address] 02/02/2025 8:40 AM EST Office Visit [facility] Internal Medicine [address] [place] [address] Alisa Kunz, DO [address] [place] [address] 02/09/2025 12:20 PM EST Office Visit [facility] Endocrinology [address] [place] [address] Anne-Marie Kolb, [employer] ASSEM[employer] MACHINE OPERATOR [address] [place] [address] 04/18/2025 2:40 PM EST Office Visit [facility] Endocrinology [address] [place] [phone] Anne-Marie Kolb, [employer] ASSEMBL[employer] MACHINE OPERATOR [address] [place] [address] Scheduled Referrals Name Type Priority Associated Diagnoses Order Schedule Discharge Ambulatory referral to [facility] Home Health Outpatient Referral Routine Pleural effusion 1 Occurrences starting 12/23/2024 until 06/26/2026 Ambulatory referral to Internal PCP Outpatient Referral Routine Acute on chronic heart failure with preserved ejection fraction 1 Occurrences starting 12/23/2024 until 06/26/2026 documented as of this encounter Procedures Procedure Name Priority Date/Time Associated Diagnosis Comments POCT GLUCOSE METER UNSOLICITED RESULTS Routine 12/23/2024 11:36 AM EDT POCT GLUCOSE METER UNSOLICITED RESULTS Routine 12/23/2024 8:42 AM EDT PROTHROMBIN TIME(PT) / INR Routine 12/23/2024 2:34 AM EDT MAGNESIUM, PLASMA Routine 12/23/2024 2:3 4 AM EDT RENAL FUNCTION PANEL, PLASMA Routine 12/23/2024 2:34 AM EDT POCT GLUCOSE METER UNSOLICITED RESULTS Routine 12/22/2024 8:11 PM EDT POCT GLUCOSE METER UNSOLICITED RESULTS Routine 12/22/2024 5:36 PM EDT POCT GLUCOSE METER UNSOLICITED RESULTS Routine 12/22/2024 12:04 PM EDT POCT GLUCOSE METER UNSOLICITED RESULTS Routine 12/22/2024 7:53 AM EDT WOUND OSTOMY EVAL AND TREAT Routine 12/22/2024 4:55 AM EDT PROTHROMBIN TIME(PT) / INR Routine 12/22/2024 3:37 AM EDT CBC W/O DIFFERENTIAL Routine 12/22/2024 3:36 AM EDT MAGNESIUM, PLASMA Routine 12/22/2024 3:3 6 AM EDT RENAL FUNCTION PANEL, PLASMA Routine 12/22/2024 3:36 AM EDT POCT GLUCOSE METER UNSOLICITED RESULTS Routine 12/21/2024 8:58 PM EDT TROPONIN T, HIGH SENSITIVITY, 2 HOUR, PLASMA Timed 12/21/2024 7:08 PM EDT TROPONIN T, HIGH SENSITIVITY, 0 HOUR, PLASMA, REFLEX TO 2 HOUR STAT 12/21/2024 4:51 PM EDT N-TERMINAL PROBNP, PLASMA STAT Add-on 12/21/2024 4:51 PM EDT XR CHEST 1 VIEW STAT 12/21/2024 4:51 PM EDT PROTHROMBIN TIME(PT) / INR STAT 12/21/2024 4:51 PM EDT CBC WITH AUTO DIFFERENTIAL STAT 12/21/2024 4:51 PM EDT PHOSPHORUS, PLASMA Add-On 12/21/2024 4: 51 PM EDT MAGNESIUM, PLASMA Add-On 12/21/2024 4:5 1 PM EDT COMPREHENSIVE METABOLIC PANEL, PLASMA STAT 12/21/2024 4:51 PM EDT ECG ADULT STAT 12/21/2024 4:36 PM EDT documented in this encounter Results * (ABNORMAL) POCT glucose meter (12/23/2024 11:36 AM EDT) POCT Glucose 296(H) 74 - 99 mg/dL 12/23/2024 11:38 AM EDT [facility] Comment:Accuracy of a glucos e result obtained from a capillary whole blood specimen relies upon adequate, non-compromised capillary blood flow. If the capillary glucose result is not consistent with the patient's clinical signs and symptoms, glucose testing should be repeated with either an arterial or venous sample on the glucometer or sent to the main labortory for testing. Comment 12/23/2024 11:38 AM EDT [facility] Cost Recorder ID Steffany Sauceda 12/23/2024 11:38 AM EDT [facility]ALTH[facility]ARE LAB Device ID [id number] 12/23/2024 11:38 AM EDT [facility] Specimen Type POC Capillary 12/23/2024 11:38 AM EDT [facility] Blood Capillary blood specimen / Unknown 12/23/2024 11:36 AM EDT 12/23/2024 11:38 AM EDT Sharath Monae MD LAB POINT OF CARE TE ST DOCKED DEVICE UNSOLICITED RESULTS Final Result Performing Organization Address City/State/[facility] Co de Phone Number [facility]ALTHCARE [facility] [address] [place] [address] * (ABNORMAL) POCT glucose meter (12/23/2024 8:42 AM EDT) [facility] Signature POCT Glucose 151(H) 74 - 99 mg/dL 12/23/2024 8:44 AM EDT [facility] Comment:Accuracy of a glucos e result obtained from a capillary whole blood specimen relies upon adequate, non-compromised capillary blood flow. If the capillary glucose result is not consistent with the patient's clinical signs and symptoms, glucose testing should be repeated with either an arterial or venous sample on the glucometer or sent to the main labortory for testing. Comment 12/23/2024 8:44 AM EDT [facility]ALTH[facility]ARE [facility] Cost Recorder ID Bal Del Rosario 8:44 AM EDT HEALTHCARE LAB Device ID [id number] 12/23/2024 8:44 AM EDT HEALTHCARE [facility] Specimen Type POC Capillary 12/23/2024 8:44 AM EDT [facility] Blood Capillary blood specimen / Unknown 12/23/2024 8:42 AM EDT 12/23/2024 8:44 AM EDT us Sharath Monae MD LAB POINT OF CARE TE ST DOCKED DEVICE UNSOLICITED RESULTS Final Result Performing Organization Address [facility] Co de Phone Number [facility] [address] [place] [address] * (ABNORMAL) Magnesium, Plasma (12/23/2024 2:34 AM EDT) Magnesium, Plasma 1.8(L) 1.9 - 2.4 mg/dL 12/23/2024 3:37 AM EDT [facility] Blood Venous blood specimen / Unknown Venipuncture / Unknown 12/23/2024 2:34 AM EDT 12/23/2024 3:05 AM EDT us Sharath Monae MD LAB BLOOD ORDERABLES Final Re sult Performing Organization Address [facility] de Phone Number [facility] [address] [place] [address] * (ABNORMAL) Renal Function Panel, Plasma (12/23/2024 2:34 AM EDT) Glucose, Plasma 202(H) 74 - 99 mg/dL 12/23/2024 3:37 AM EDT [facility] BUN, Plasma 22 8 - 23 mg/dL 12/23/2024 3:37 AM EDT [facility] Creatinine, Plasma 0.89 0.60 - 1.10 mg/dL 12/23/2024 3:37 AM EDT [facility]ALTH[facility] BUN/Creatinine Ratio 25 12/23/2024 3:37 AM EDT [facility] Sodium, Plasma 135(L) 136 - 145 mmol/L 12/23/2024 3:37 AM EDT [facility] Potassium, Plasma 3.6 3.6 - 4.9 mmol/L 12/23/2024 3:37 AM EDT [facility] Chloride, Plasma 94(L) 97 - 107 mmol/L 12/23/2024 3:37 AM EDT [facility] CO2, Plasma 31(H) 22 - 29 mmol/L 12/23/2024 3:37 AM EDT [facility] Anion Gap 10 6 - 16 mmol/L 12/23/2024 3:37 AM EDT [facility] Total Calcium, Plasma 8.7(L) 8.9 - 10.2 mg/dL 12/23/2024 3:37 AM EDT [facility] Phosphorus, Plasma 3.7 2.5 - 4.5 mg/dL 12/23/2024 3:37 AM EDT [facility] Albumin, Plasma 2.8(L) 3.5 - 5.2 g/dL 12/23/2024 3:37 AM EDT [facility] eGFRcr 68.6 mL/min/1.7 3m*2 12/23/2024 3:37 AM EDT [facility] Comment:Reported eGFRcr in m L/min/1.73m2 is based the CKD-EPI 2020 equation that does not use a race coefficient. Blood Venous blood specimen / Unknown Venipuncture / Unknown 12/23/2024 2:34 AM EDT 12/23/2024 3:05 AM EDT us Sharath Monae MD LAB BLOOD ORDERABLES Final Re sult [facility] [address] [place] [address] * (ABNORMAL) Prothrombin Time/INR (12/23/2024 2:34 AM EDT) Prothrombin Time 21.7(H) 12.0 - 14.3 sec 12/23/2024 3:21 AM EDT [facility] INR 1.8(H) 0.9 - 1.1 12/23/2024 3:21 AM EDT [facility] Blood Venous blood specimen / Unknown Venipuncture / Unknown 12/23/2024 2:34 AM EDT 12/23/2024 3:06 AM EDT Narrative [facility] - 12/23/2024 3:21 AM EDT OPTIMAL INR RANGES FOR PATIENT ON ORAL ANTICOAGULANT THERAPY Prevention of venous thromboembolism INR 2.0 to 3.0 In patients with heart disease: Atrial fibrillation INR 2.0 to 3.0 Valvular heart disease INR 2.0 to 3.0 Tissue heart valves INR 2.0 to 3.0 Mechanical prosthetic valves INR 2.5 to 3.5 Prevention of recurrent [place] INR 2.5 to 3.5 us Hung Whitten BALL[employer] P[employer] ASSEMBLY MACHINE OPERATOR LAB BLOOD ORDERABLES Final Result Performing Organization Address City/[facility]/ZIP Co de Phone Number [facility] [address] [place] [address] * (ABNORMAL) POCT glucose meter (12/22/2024 8:11 PM EDT) POCT Glucose 241(H) 74 - 99 mg/dL 12/22/2024 8:13 PM EDT [facility] Comment:Accuracy of a glucos e result obtained from a capillary whole blood specimen relies upon adequate, non-compromised capillary blood flow. If the capillary glucose result is not consistent with the patient's clinical signs and symptoms, glucose testing should be repeated with either an arterial or venous sample on the glucometer or sent to the main labortory for testing. Comment 12/22/2024 8:13 PM EDT [facility] Cost Recorder ID Keyur Devi 12/22/2024 8:13 PM EDT [facility] Device ID [id number] 12/22/2024 8:13 PM EDT [facility] Specimen Type POC Capillary 12/22/2024 8:13 PM EDT [facility] Blood Capillary blood specimen / Unknown 12/22/2024 8:11 PM EDT 12/22/2024 8:13 PM EDT us Sharath Monae MD LAB POINT OF CARE TE ST DOCKED DEVICE UNSOLICITED RESULTS Final Result Performing Organization Address City/[facility] Co de Phone Number [facility] [address] [place] [address] * (ABNORMAL) POCT glucose meter (12/22/2024 5:36 PM EDT) POCT Glucose 170(H) 74 - 99 mg/dL 12/22/2024 5:38 PM EDT [facility] Comment:Accuracy of [...] to the main labortory for testing. Comment 12/22/2024 5:38 PM EDT [facility] Cost Recorder ID Shantal Srivastava [id number] 5:38 PM EDT [facility] Device ID [id number] 12/22/2024 5:38 PM EDT [facility] Specimen Type POC Capillary 12/22/2024 5:38 PM EDT [facility] Blood Capillary blood specimen / Unknown 12/22/2024 5:36 PM EDT 12/22/2024 5:38 PM EDT Sharath Moane MD LAB POINT OF CARE TE ST DOCKED DEVICE UNSOLICITED RESULTS Final Result Performing Organization Address City/[facility] Co de Phone Number [facility] [address] [place] [address] * (ABNORMAL) POCT glucose meter (12/22/2024 12:04 PM EDT) POCT Glucose 188(H) 74 - 99 mg/dL 12/22/2024 12:06 PM EDT [facility] Comment:Accuracy of [...] to the main labortory for testing. Comment 12/22/2024 12:06 PM EDT [facility] Cost Recorder ID Joyce Fabian 12/22/2024 12:06 PM EDT [facility] Device ID [id number] 12/22/2024 12:06 PM EDT [facility] Specimen Type POC Capillary 12/22/2024 12:06 PM EDT [facility] Blood Capillary blood specimen / Unknown 12/22/2024 12:04 PM EDT 12/22/2024 12:06 PM EDT us Sharath Monae MD LAB POINT OF CARE TE ST DOCKED DEVICE UNSOLICITED RESULTS Final Result [facility] [address] [place] [address] * (ABNORMAL) POCT glucose meter (12/22/2024 7:53 AM EDT) [facility] POCT Glucose 122(H) 74 - 99 mg/dL 12/22/2024 7:55 AM EDT [facility] Comment:Accuracy of a glucos e result obtained from a capillary whole blood specimen relies upon adequate, non-compromised capillary blood flow. If the capillary glucose result is not consistent with the patient's clinical signs and symptoms, glucose testing should be repeated with either an arterial or venous sample on the glucometer or sent to the main labortory for testing. Comment 12/22/2024 7:55 AM EDT [facility] Cost Recorder ID Joyce Fabian 12/22/2024 7:55 AM EDT [facility] Device ID [id number] 12/22/2024 7:55 AM EDT [facility] Specimen Type POC Capillary 12/22/2024 7:55 AM EDT [facility] Blood Capillary blood specimen / Unknown 12/22/2024 7:53 AM EDT 12/22/2024 7:55 AM EDT us Sharath Monae MD LAB POINT OF CARE TE ST DOCKED DEVICE UNSOLICITED RESULTS Final Result Performing Organization Address City/State/[facility] Co de Phone Number [facility] [address] [place] [address] * (ABNORMAL) Prothrombin Time/INR (12/22/2024 3:37 AM EDT) [facility] Prothrombin Time 20.1(H) 12.0 - 14.3 sec 12/22/2024 4:22 AM EDT [facility] INR 1.7(H) 0.9 - 1.1 12/22/2024 4:22 AM EDT [facility] Blood Venous blood specimen / Unknown Venipuncture / Unknown 12/22/2024 3:37 AM EDT 12/22/2024 4:10 AM EDT Narrative [facility] - 12/22/2024 4:22 AM EDT OPTIMAL INR RANGES FOR PATIENT ON ORAL ANTICOAGULANT THERAPY Prevention of venous thromboembolism INR 2.0 to 3.0 In patients with heart disease: Atrial fibrillation INR 2.0 to 3.0 Valvular heart disease INR 2.0 to 3.0 Tissue heart valves INR 2.0 to 3.0 Mechanical prosthetic valves INR 2.5 to 3.5 Prevention of recurrent [place] INR 2.5 to 3.5 Hung Whitten BALL[employer] P[employer] ASSEMBLY MACHINE OPERATOR LAB BLOOD ORDERABLES Final Result Performing Organization Address City/[facility] Co de Phone Number [facility] [address] [place] [address] * Magnesium, Plasma (12/22/2024 3:36 AM EDT) Magnesium, Plasma 1.9 1.9 - 2.4 mg/dL 12/22/2024 4:45 AM EDT [facility] Blood Venous blood specimen / Unknown Venipuncture / Unknown 12/22/2024 3:36 AM EDT 12/22/2024 4:02 AM EDT Hung Whitten BALL[employer] P[employer] ASSEMBLY MACHINE OPERATOR LAB BLOOD ORDERABLES Final Result Performing Organization Address [facility] de Phone Number [facility] [address] [place] [address] * (ABNORMAL) Renal Function Panel, Plasma (12/22/2024 3:36 AM EDT) Glucose, Plasma 178(H) 74 - 99 mg/dL 12/22/2024 4:45 AM EDT [facility] BUN, Plasma 25(H) 8 - 23 mg/dL 12/22/2024 4:45 AM EDT [facility] Creatinine, Plasma 0.86 0.60 - 1.10 mg/dL 12/22/2024 4:45 AM EDT [facility] BUN/Creatinine Ratio 29 12/22/2024 4:45 AM EDT [facility] Sodium, Plasma 137 136 - 145 mmol/L 12/22/2024 4:45 AM EDT [facility] Potassium, Plasma 3.6 3.6 - 4.9 mmol/L 12/22/2024 4:45 AM EDT [facility] Chloride, Plasma 95(L) 97 - 107 mmol/L 12/22/2024 4:45 AM EDT [facility] CO2, Plasma 34(H) 22 - 29 mmol/L 12/22/2024 4:45 AM EDT [facility] Anion Gap 8 6 - 16 mmol/L 12/22/2024 4:45 AM EDT [facility] Total Calcium, Plasma 8.8(L) 8.9 - 10.2 mg/dL 12/22/2024 4:45 AM EDT [facility] Phosphorus, Plasma 3.4 2.5 - 4.5 mg/dL 12/22/2024 4:45 AM EDT [facility] Albumin, Plasma 2.8(L) 3.5 - 5.2 g/dL 12/22/2024 4:45 AM EDT [facility] eGFRcr 71.4 mL/min/1.7 3m*2 12/22/2024 4:45 AM EDT [facility] Comment:Reported eGFRcr in m L/min/1.73m2 is based the CKD-EPI 2020 equation that does not use a race coefficient. Blood Venous blood specimen / Unknown Venipuncture / Unknown 12/22/2024 3:36 AM EDT 12/22/2024 4:02 AM EDT Hung Whitten BALL[employer] P[employer] ASSEMBLY MACHINE OPERATOR LAB BLOOD ORDERABLES Final Result [facility] [address] [place] [id number] * (ABNORMAL) CBC W/O Differential (12/22/2024 3:36 AM EDT) WBC Count 5.62 3.70 - 10.30 10*3/uL LAB HEMATOLOGY METHOD 12/22/2024 4:15 AM EDT [facility] RBC Count 3.34(L) 3.90 - 5.20 10*6/uL LAB HEMATOLOGY METHOD 12/22/2024 4:15 AM EDT [facility] HGB 9.7(L) 11.2 - 15.7 g/dL LAB HEMATOLOGY METHOD 12/22/2024 4:15 AM EDT [facility] HCT 30.8(L) 34.0 - 45.0 % LAB HEMATOLOGY METHOD 12/22/2024 4:15 AM EDT [facility] Platelet Count 310 155 - 369 10*3/uL LAB HEMATOLOGY METHOD 12/22/2024 4:15 AM EDT [facility] MCV 92 79 - 98 fL LAB HEMATOLOGY METHOD 12/22/2024 4:15 AM EDT [facility]ALTH[facility] MCH 29.0 26.0 - 32.0 pg LAB HEMATOLOGY METHOD 12/22/2024 4:15 AM EDT [facility] MCHC 31.5 30.7 - 35.5 g/dL LAB HEMATOLOGY METHOD 12/22/2024 4:15 AM EDT [facility] RDW 14.6(H) 11.5 - 14.5 % LAB HEMATOLOGY METHOD 12/22/2024 4:15 AM EDT [facility] MPV 9.5 8.8 - 12.5 fL LAB HEMATOLOGY METHOD 12/22/2024 4:15 AM EDT [facility] nRBC 0.0 <=0.0 per 100 WBCs LAB HEMATOLOGY METHOD 12/22/2024 4:15 AM EDT [facility] Blood Venous blood specimen / Unknown Venipuncture / Unknown 12/22/2024 3:36 AM EDT 12/22/2024 4:08 AM EDT Hung Whitten BALL[employer] ASSEMBL[employer] MACHINE OPERATOR LAB BLOOD ORDERABLES Final Result [facility] [address] [place] [address] * (ABNORMAL) POCT glucose meter (12/21/2024 8:58 PM EDT) [facility] Signature POCT Glucose 162(H) 74 - 99 mg/dL 12/21/2024 8:59 PM EDT [facility] Comment:Accuracy of [...] to the main labortory for testing. Comment 12/21/2024 8:59 PM EDT [facility] Cost Recorder ID Mika Murrelldro 12/21/2024 8:59 PM EDT [facility] Device ID [id number] 12/21/2024 8:59 PM EDT [facility] Specimen Type POC Capillary 12/21/2024 8:59 PM EDT [facility] Blood Capillary blood specimen / Unknown 12/21/2024 8:58 PM EDT 12/21/2024 8:59 PM EDT us Yanet Duff MD LAB POINT OF CARE TE ST DOCKED DEVICE UNSOLICITED RESULTS Final Result [facility] [address] [place] [address] * (ABNORMAL) Troponin T, High Sensitivity, 2 Hour, Plasma (12/21/2024 7:08 PM EDT) Troponin T, High Sensitivity, 2 Hour 46(H) <14 ng/L 12/21/2024 7:43 PM EDT [facility] Troponin Delta 1 <10 ng/L 12/21/2024 7:43 PM EDT [facility] Troponin Delta Interpretation Not Significant 12/21/2024 7:43 PM EDT [facility] Comment:Not Significant. No acute change in troponin observed between the baseline and 2 hour samples. Blood Venous blood specimen / Unknown Venipuncture / Unknown 12/21/2024 7:08 PM EDT 12/21/2024 7:21 PM EDT Yanet Duff MD LAB BLOOD ORDERABLES Final Re sult Performing Organization Address City/[facility]/ZIP Co de Phone Number [facility] [address] [place] [address] * Phosphorus (12/21/2024 4:51 PM EDT) Phosphorus, Plasma 3.0 2.5 - 4.5 mg/dL 12/21/2024 9:17 PM EDT [facility] Blood Venous blood specimen / Unknown 12/21/2024 4:51 PM EDT 12/21/2024 4:53 PM EDT Hung Whitten APRN LAB BLOOD ORDERABLES Final Result Performing Organization Address City/[facility]/ZIP Co de Phone Number [facility] [address] [place] [address] * Magnesium (12/21/2024 4:51 PM EDT) Magnesium, Plasma 2.1 1.9 - 2.4 mg/dL 12/21/2024 9:17 PM EDT [facility] Blood Venous blood specimen / Unknown 12/21/2024 4:51 PM EDT 12/21/2024 4:53 PM EDT Hung Whitten APRN LAB BLOOD ORDERABLES Final Result Performing Organization Address City/[facility]/ZIP Co de Phone Number [facility] [address] [place] [address] * (ABNORMAL) BNP (12/21/2024 4:51 PM EDT) N-Terminal, PROBNP, Plasma 12,113(H) 0 - 899 pg/mL 12/21/2024 7:56 PM EDT [facility] Blood Venous blood specimen / Unknown 12/21/2024 4:51 PM EDT 12/21/2024 4:53 PM EDT Yanet Duff MD LAB BLOOD ORDERABLES Final Re sult Performing Organization Address City/[facility]/[place] [address] * (ABNORMAL) Troponin now and 120 min (12/21/2024 4:51 PM EDT) Troponin T, High Sensitivity, 0 Hour 45(H) <14 ng/L 12/21/2024 5:17 PM EDT [facility] Blood Venous blood specimen / Unknown 12/21/2024 4:51 PM EDT 12/21/2024 4:53 PM EDT Yanet Duff MD LAB BLOOD ORDERABLES Final Re sult Performing Organization Address City/[facility]/ZIP Co de Phone Number [facility] [address] [place] [address] * (ABNORMAL) CMP (12/21/2024 4:51 PM EDT) Glucose, Plasma 285(H) 74 - 99 mg/dL 12/21/2024 5:17 PM EDT [facility] BUN, Plasma 26(H) 8 - 23 mg/dL 12/21/2024 5:17 PM EDT [facility] Creatinine, Plasma 0.81 0.60 - 1.10 mg/dL 12/21/2024 5:17 PM EDT [facility] BUN/Creatinine Ratio 32 12/21/2024 5:17 PM EDT [facility] Sodium, Plasma 134(L) 136 - 145 mmol/L 12/21/2024 5:17 PM EDT [facility] Potassium, Plasma 3.5(L) 3.6 - 4.9 mmol/L 12/21/2024 5:17 PM EDT [facility] Chloride, Plasma 94(L) 97 - 107 mmol/L 12/21/2024 5:17 PM EDT [facility] CO2, Plasma 28 22 - 29 mmol/L 12/21/2024 5:17 PM EDT [facility] Anion Gap 12 6 - 16 mmol/L 12/21/2024 5:17 PM EDT [facility] Total Calcium, Plasma 8.8(L) 8.9 - 10.2 mg/dL 12/21/2024 5:17 PM EDT [facility] Total Protein 7.2 6.3 - 7.9 g/dL 12/21/2024 5:17 PM EDT [facility] Albumin, Plasma 3.2(L) 3.5 - 5.2 g/dL 12/21/2024 5:17 PM EDT [facility] AST, Plasma 47(H) 10 - 35 U/L 12/21/2024 5:17 PM EDT [facility] ALT, Plasma 24 10 - 35 U/L 12/21/2024 5:17 PM EDT [facility] Alkaline Phosphatase, Plasma 156(H) 46 - 142 U/L 12/21/2024 5:17 PM EDT [facility] Total Bilirubin, Plasma 0.5 0.2 - 1.1 mg/dL 12/21/2024 5:17 PM EDT [facility] eGFRcr 76.8 mL/min/1.7 3m*2 12/21/2024 5:17 PM EDT [facility] Comment:Reported eGFRcr in m L/min/1.73m2 is based the CKD-EPI 2020 equation that does not use a race coefficient. Blood Venous blood specimen / Unknown 12/21/2024 4:51 PM EDT 12/21/2024 4:53 PM EDT Result [facility] Yanet Duff MD LAB BLOOD ORDERABLES Final Re sult Performing Organization Address [facility] Co de Phone Number [facility] [address] [place] [address] * (ABNORMAL) PT-INR (12/21/2024 4:51 PM EDT) Prothrombin Time 20.4(H) 12.0 - 14.3 sec 12/21/2024 5:07 PM EDT [facility] INR 1.7(H) 0.9 - 1.1 12/21/2024 5:07 PM EDT [facility] Blood Venous blood specimen / Unknown 12/21/2024 4:51 PM EDT 12/21/2024 4:53 PM EDT Narrative [facility] - 12/21/2024 5:07 PM EDT OPTIMAL INR RANGES FOR PATIENT ON ORAL ANTICOAGULANT THERAPY Prevention of venous thromboembolism INR 2.0 to 3.0 In patients with heart disease: Atrial fibrillation INR 2.0 to 3.0 Valvular heart disease INR 2.0 to 3.0 Tissue heart valves INR 2.0 to 3.0 Mechanical prosthetic valves INR 2.5 to 3.5 Prevention of recurrent [place] INR 2.5 to 3.5 Yanet Duff MD LAB BLOOD ORDERABLES Final Re sult Performing Organization Address [facility] Co de Phone Number [facility] [address] [place] [address] * (ABNORMAL) CBC w/diff (12/21/2024 4:51 PM EDT) WBC Count 5.02 3.70 - 10.30 10*3/uL LAB HEMATOLOGY METHOD 12/21/2024 4:57 PM EDT [facility] RBC Count 3.75(L) 3.90 - 5.20 10*6/uL LAB HEMATOLOGY METHOD 12/21/2024 4:57 PM EDT [facility] HGB 11.3 11.2 - 15.7 g/dL LAB HEMATOLOGY METHOD 12/21/2024 4:57 PM EDT [facility] HCT 35.3 34.0 - 45.0 % LAB HEMATOLOGY METHOD 12/21/2024 4:57 PM EDT [facility] Platelet Count 350 155 - 369 10*3/uL LAB HEMATOLOGY METHOD 12/21/2024 4:57 PM EDT [facility] MCV 94 79 - 98 fL LAB HEMATOLOGY METHOD 12/21/2024 4:57 PM EDT [facility] MCH 30.1 26.0 - 32.0 pg LAB HEMATOLOGY METHOD 12/21/2024 4:57 PM EDT [facility] MCHC 32.0 30.7 - 35.5 g/dL LAB HEMATOLOGY METHOD 12/21/2024 4:57 PM EDT [facility] RDW 14.7(H) 11.5 - 14.5 % LAB HEMATOLOGY METHOD 12/21/2024 4:57 PM EDT [facility] MPV 9.6 8.8 - 12.5 fL LAB HEMATOLOGY METHOD 12/21/2024 4:57 PM EDT [facility] nRBC 0.0 <=0.0 per 100 WBCs LAB HEMATOLOGY METHOD 12/21/2024 4:57 PM EDT [facility] Differential Type Automated LAB HEMATOLOGY METHOD 12/21/2024 4:57 PM EDT [facility] Neutrophils % 70 % LAB HEMATOLOGY METHOD 12/21/2024 4:57 PM EDT [facility] Lymphocytes % 16 % LAB HEMATOLOGY METHOD 12/21/2024 4:57 PM EDT [facility] Monocytes % 10 % LAB HEMATOLOGY METHOD 12/21/2024 4:57 PM EDT [facility] Eosinophils % 1 % LAB HEMATOLOGY METHOD 12/21/2024 4:57 PM EDT [facility] Basophils % 2 % LAB HEMATOLOGY METHOD 12/21/2024 4:57 PM EDT [facility] Immature Granulocytes % 1 % LAB HEMATOLOGY METHOD 12/21/2024 4:57 PM EDT [facility] Neutrophils Absolute 3.57 1.60 - 6.10 10*3/uL LAB HEMATOLOGY METHOD 12/21/2024 4:57 PM EDT [facility] Lymphocytes Absolute 0.79(L) 1.20 - 3.90 10*3/uL LAB HEMATOLOGY METHOD 12/21/2024 4:57 PM EDT [facility] Monocytes Absolute 0.51 0.30 - 0.90 10*3/uL LAB HEMATOLOGY METHOD 12/21/2024 4:57 PM EDT [facility] Eosinophils Absolute 0.04 0.00 - 0.50 10*3/uL LAB HEMATOLOGY METHOD 12/21/2024 4:57 PM EDT [facility] Basophils Absolute 0.08 0.00 - 0.10 10*3/uL LAB HEMATOLOGY METHOD 12/21/2024 4:57 PM EDT [facility] Immature Granulocytes Absolute 0.03 0.00 - 0.06 10*3/uL LAB HEMATOLOGY METHOD 12/21/2024 4:57 PM EDT [facility] Blood Venous blood specimen / Unknown 12/21/2024 4:51 PM EDT 12/21/2024 4:53 PM EDT Narrative [facility] - 12/21/2024 4:57 PM EDT Therapeutic decision making should be based on absolute values, rather than percentages. us Yanet Duff MD LAB BLOOD ORDERABLES Final Re sult [facility] [address] [place] [address] * XR Chest 1 View (12/21/2024 4:51 PM EDT) Anatomical Region Laterality Modality Chest Digital Radiogra phy Impressions 12/21/2024 5:34 PM EDT Opacity in the left lung base in the retrocardiac region consistent with an area of atelectasis or infection with small left pleural effusion. Medium-sized right pleural effusion with underlying airspace disease may related to volume loss and/or infection. CRITICAL RESULT: No. COMMUNICATION: Per this written report. Drafted by Vaughn Kwan MD on 12/21/2024 5:33 PM Final report signed by Vaughn Kwan MD on 12/21/2024 5:34 PM Narrative 12/21/2024 5:34 PM EDT CLINICAL INDICATION: soa TECHNIQUE: XR CHEST 1 VIEW COMPARISON: 11/25/[address], 11/24/2024 radiograph FINDINGS: Prior median sternotomy. Cardiac pacemaker device present from left subclavian approach. Mild cardiomegaly. Opacity in the left lung base in the retrocardiac region consistent with an area of atelectasis or infection with small left pleural effusion. Medium-sized right pleural effusion with underlying airspace disease may related to volume loss and/or infection. No evidence of pneumothorax or acute osseous finding. Procedure Note Vaughn Kwan MD - 12/21/2024 CLINICAL INDICATION: soa TECHNIQUE: XR CHEST 1 VIEW COMPARISON: 11/25/[address], 11/24/2024 radiograph FINDINGS: Prior median sternotomy. Cardiac pacemaker device present from leftsubclavian approach. Mild cardiomegaly. Opacity in the left lung base inthe retrocardiac region consistent with an area of atelectasis orinfection with small left pleural effusion. Medium-sized right pleuraleffusion with underlying airspace disease may related to volume lossand/or infection. No evidence of pneumothorax or acute osseous finding. IMPRESSION: Opacity in the left lung base in the retrocardiac region consistent withan area of atelectasis or infection with small left pleural effusion.Medium-sized right pleural effusion with underlying airspace disease mayrelated to volume loss and/or infection. CRITICAL RESULT: No. COMMUNICATION: Per this written report. Drafted by Vaughn Kwan MD on 12/21/2024 5:33 PM Final report signed by Vaughn Kwan MD on 12/21/2024 5:34 PM us Yanet Duff MD IMG XR PROCEDURES Final Resul t * ECG Adult (12/21/2024 4:36 PM EDT) EKG DIAGNOSIS CLASS Abnormal MUSE ECG Ventricular Rate 60 BPM MUSE ECG Atrial Rate 70 BPM MUSE ECG QRSD Interval 186 ms MUSE ECG QT Interval 542 ms MUSE ECG QTC Interval 542 ms MUSE ECG R [place] -70 degrees MUSE ECG T Wave [place] 116 degrees MUSE ECG Diagnosis Ventricular-p aced rhythm MUSE ECG Diagnosis Abnormal ECG MUSE ECG Diagnosis MUSE ECG Diagnosis Confirmed by Jaime Carlton ([id number]) on 12/22/2024 11:03:36 AM MUSE ECG 12/21/2024 4:36 PM EDT 12/22/2024 11:03 AM EDT us Yanet Duff MD ECG ORDERABLES Final Result MUSE ECG documented in this encounter Visit Diagnoses Diagnosis Decompensated heart failure- Primary Pleural effusion Unspecified pleural effusion Acute on chronic congestive heart failure, unspecified heart failure type Type 1 diabetes mellitus with hyperglycemia Acute on chronic heart failure with preserved ejection fraction Acquired hypothyroidism Unspecified hypothyroidism Acute on chronic congestive heart failure Atrial fibrillation ([facility]) Atrial fibrillation Cerebrovascular accident (CVA) ([facility]) Depression Depressive disorder, not elsewhere classified Diabetic neuropathy with neurologic complication Type II or unspecified type diabetes mellitus with neurological manifestations, not stated as uncontrolled GERD (gastroesophageal reflux disease) Esophageal reflux Hyperlipidemia Other and unspecified hyperlipidemia Hypertension Unspecified essential hypertension EWELINA (obstructive sleep apnea) Obstructive sleep apnea (adult) (pediatric) SLE (systemic lupus erythematosus) ([facility]) Systemic lupus erythematosus Type 1 diabetes mellitus with hyperglycemia documented in this encounter Admitting Diagnoses Diagnosis Decompensated heart failure documented in this encounter Administered Medications Inactive Administered Medications - up to 3 most recent administrations Medication Order MAR Action Action Date Dose Rate Site acetaminophen (Tylenol) tablet 650 mg 650 mg, Oral, Every 6 hours PRN, Starting on Fri12/22/24 at 0000, Until Fri12/23/24 at 1610, Routine, mild pain Given 12/22/2024 12:21 AM EDT 650 mg albuterol (Proventil) (2.5 MG/3ML) 0.083% nebulizer solution 2.5 mg 2.5 mg, Nebulization, Every 6 hours PRN, Starting on Fri12/21/24 at 2134, Until Lurdes 12/23/24 at 1610, Routine, shortness of breath, wheezing atorvastatin (Lipitor) tablet 40 mg 40 mg, Oral, Nightly, First dose on Fri12/21/24 at 2135, Until Discontinued, Routine Given 12/22/2024 8:04 PM EDT 40 mg Given 12/21/2024 10:21 PM EDT 40 mg brimonidine (AlphaGAN P) 0.2 % ophthalmic solution 1 drop 1 drop, Both Eyes, Nightly, First dose on Fri12/21/24 at 2130, Until Discontinued, Routine Given 12/22/2024 8:2 7 PM EDT 1 drop Given 12/22/2024 12:22 AM EDT 1 drop calcium-vitamin D 500-200 MG-UNIT per tablet 1 tablet 1 tablet, Oral, Daily, First dose on Fri12/22/24 at 0900, Until Discontinued, Routine Given 12/23/2024 9:04 AM EDT 1 tablet Given 12/22/2024 8:29 AM EDT 1 tablet cetirizine (ZyrTEC) tablet 10 mg 10 mg, Oral, Every evening, First dose on Fri12/21/24 at 2130, Until Discontinued, Routine Given 12/22/2024 5:4 8 PM EDT 10 mg Given 12/21/2024 10:20 PM EDT 10 mg dextrose 10 % (D10W) bolus 125 mL 125 mL, Intravenous, Every 15 min PRN, Starting on Fri12/21/24 at 2127, Until Fri12/23/24 at 1610, Administer over 15 Minutes, Routine, low blood sugar BG 51-89 mg/dL dextrose 10 % (D10W) bolus 250 mL 250 mL, Intravenous, Every 15 min PRN, Starting on Fri12/21/24 at 2127, Until Fri12/23/24 at 1610, Administer over 15 Minutes, Routine, PRN low blood sugar BG =/<50 mg/dL DULoxetine (Cymbalta) DR capsule 20 mg 20 mg, Oral, Every morning, First dose on Fri12/22/24 at 0600, Until Discontinued, Routine Given 12/22/2024 5:3 4 AM EDT 20 mg DULoxetine (Cymbalta) DR capsule 20 mg 20 mg, Oral, Daily, First dose (after last modification) on Fri12/23/24 at 0900, Until Discontinued, Routine Given 12/23/2024 9:13 AM EDT 20 mg DULoxetine (Cymbalta) DR capsule 60 mg 60 mg, Oral, Daily, First dose on Fri12/22/24 at 0900, Until Discontinued, Routine Given 12/23/2024 9:04 AM EDT 60 mg Given 12/22/2024 8:29 AM EDT 60 mg ezetimibe (Zetia) tablet 10 mg 10 mg, Oral, Nightly, First dose on Fri12/21/24 at 2130, Until Discontinued, Routine Given 12/22/2024 8:0 3 PM EDT 10 mg Given 12/22/2024 12:22 AM EDT 10 mg furosemide (Lasix) injection 80 mg 80 mg, Intravenous, Once, 1 dose, On Fri12/21/24 at 1950, STAT Given 12/21/2024 8:19 PM EDT 80 mg furosemide (Lasix) injection 80 mg 80 mg, Intravenous, Once, 1 dose, On Fri12/22/24 at 1100, Routine Given 12/22/2024 11:28 AM EDT 80 mg gabapentin (Neurontin) capsule 600 mg 600 mg, Oral, 2 times daily, First dose on Fri12/21/24 at 2130, Until Discontinued, Routine Given 12/23/2024 9:04 AM EDT 600 mg Given 12/22/2024 8:03 PM EDT 600 mg Given 12/22/2024 8:29 AM EDT 600 mg glucagon (human recombinant) injection 1 mg 1 mg, Intramuscular, Every 15 min PRN, Starting on Fri12/21/24 at 2127, Until Fri12/23/24 at 1610, Routine, low blood sugar per Hypoglycemia Prevention and Treatment protocol glucose (Glutose) 40 % oral gel 15-30 grams of glucose 15-30 grams of glucose, Sublingual, Every 15 min PRN, Starting on Fri12/21/24 at 2127, Until Fri12/23/24 at 1610, Routine, low blood sugar, per Hypoglycemia Prevention and Treatment protocol hydroxychloroquine (Plaquenil) tablet 200 mg 200 mg, Oral, Nightly, First dose on Fri12/21/24 at 2130, Until Discontinued, Routine Given 12/22/2024 8:0 4 PM EDT 200 mg Given 12/21/2024 10:20 PM EDT 200 mg insulin glargine-yfgn 100 UNIT/ML injection 5 Units 5 Units, Subcutaneous, 2 times daily, First dose on Fri12/21/24 at 2130, Until Discontinued, Routine Given 12/23/2024 9:22 AM EDT 5 Units Right Upper Arm (Janessa k) Given 12/22/2024 8:33 PM EDT 5 Units Le ft Upper Arm (Back) Given 12/22/2024 8:28 AM EDT 5 Units Le ft Upper Arm (Back) insulin lispro (Admelog) 100 units/mL injection - Correction - Standard Dose 0-5 Units, Subcutaneous, 3 times daily with meals, First dose on Fri12/22/24 at 0830, Until Discontinued, Routine Given 12/23/2024 12:06 PM EDT 3 Units Left Upper Arm (Back ) Given 12/23/2024 9:03 AM EDT 1 Units Le ft Upper Arm (Back) Given 12/22/2024 5:48 PM EDT 1 Units Ri ght Upper Arm (Back) latanoprost (Xalatan) 0.005 % ophthalmic solution 1 drop 1 drop, Both Eyes, Nightly, First dose on Fri12/21/24 at 2130, Until Discontinued, Routine Given 12/22/2024 8:2 7 PM EDT 1 drop Given 12/22/2024 12:23 AM EDT 1 drop levothyroxine (Synthroid, Levoxyl) tablet 125 mcg 125 mcg, Oral, Daily before breakfast, First dose on Fri12/22/24 at 0730, Until Discontinued, Routine Given 12/23/2024 6:50 AM EDT 125 mcg Given 12/22/2024 6:30 AM EDT 125 mcg losartan (Cozaar) tablet 25 mg 25 mg, Oral, Daily, First dose on Fri12/23/24 at 0900, Until Discontinued, Routine Given 12/23/2024 9:04 AM EDT 25 mg magnesium oxide (Mag-Ox) tablet 800 mg 800 mg, Oral, Once, 1 dose, On Fri12/23/24 at 1000, Routine Given 12/23/2024 10:47 AM EDT 800 mg metoprolol succinate XL (Toprol-XL) 24 hr tablet 25 mg 25 mg, Oral, Every morning, First dose on Fri12/22/24 at 0600, Until Discontinued, Routine Given 12/23/2024 9:19 AM EDT 25 mg Given 12/22/2024 5:34 AM EDT 25 mg mometasone-formoterol (Dulera 200) 200-5 MCG/ACT inhaler 2 puff 2 puff, Inhalation, 2 times daily, First dose on Fri12/22/24 at 0900, Until Discontinued Given 12/23/2024 8:14 AM EDT 2 puffs Given 12/22/2024 7:29 PM EDT 2 puffs mycophenolate (Cellcept) capsule 1,000 mg 1,000 mg, Oral, 2 times daily, First dose on Fri12/21/24 at 2130, Until Discontinued Given 12/23/2024 9:04 AM EDT 1,000 mg Given 12/22/2024 8:04 PM EDT 1,000 mg Given 12/22/2024 8:29 AM EDT 1,000 mg potassium chloride CR (Klor-Con) ER tablet 20 mEq 20 mEq, Oral, Once, 1 dose, On Fri12/21/24 at 2230, Routine Given 12/22/2024 12:21 AM EDT 20 mEq sodium chloride 0.9 % flush 10 mL 10 mL, Intravenous, Every 12 hours, First dose on Fri12/21/24 at 2130, Until Discontinued, Routine Given 12/23/2024 8:37 AM EDT 10 mL Given 12/22/2024 8:04 PM EDT 10 mL Given 12/22/2024 8:34 AM EDT 10 mL sodium chloride 0.9 % flush 10 mL 10 mL, Intravenous, As needed, Starting on Fri12/21/24 at 2125, Until Fri12/23/24 at 1610, Routine, line care Tiotropium [place] Monohydrate (Spiriva Respimat) 2.5 MCG/ACT inhaler 2 puff 2 puff, Inhalation, Daily, First dose on Fri12/22/24 at 0900, Until Discontinued Given 12/23/2024 8:14 AM EDT 2 p uffs warfarin (Coumadin) tablet 5 mg 5 mg, Oral, Once, 1 dose, On Fri12/21/24 at 2255, Routine Given 12/22/2024 12:21 AM EDT 5 mg warfarin (Coumadin) tablet 5 mg 5 mg, Oral, User specified (Once per day on Friday), First dose on Fri12/23/24 at 1700, Until Discontinued, Routine warfarin (Coumadin) tablet 7.5 mg 7.5 mg, Oral, Once, 1 dose, On Fri12/22/24 at 1700, Routine Given 12/22/2024 5:48 PM EDT 7.5 mg warfarin (Coumadin) tablet 7.5 mg 7.5 mg, Oral, User specified (Every Friday), First dose on Fri12/28/24 at 1700, Until Discontinued, Routine documented in this encounter Active and Recently Administered Medications Times are shown in EDT. Scheduled Medication Order 12/21/2024 12/22/2024 12/23/2024 atorvastatin (Lipitor) tablet 40 mg 40 mg, Oral, Nightly, First dose on Fri12/21/24 at 2135, Until Discontinued, Routine 2220 (Given - Provider: Janina Shell RN) 2003 (Given - Provider: Melodie Villafuerte RN) brimonidine (AlphaGAN P) 0.2 % ophthalmic solution 1 drop 1 drop, Both Eyes, Nightly, First dose on Fri12/21/24 at 2130, Until Discontinued, Routine 21 (Given - Provider: Angeline Bennett RN)2026 (Given - Provider: Melodie Villafuerte RN) calcium-vitamin D 500-200 MG-UNIT per tablet 1 tablet 1 tablet, Oral, Daily, First dose on Fri12/22/24 at 0900, Until Discontinued, Routine 08 (Given - Provider: Shantal Srivastava RN) 09 (Given - Provider: Shantal Srivastava RN) cetirizine (ZyrTEC) tablet 10 mg 10 mg, Oral, Every evening, First dose on Fri12/21/24 at 2130, Until Discontinued, Routine 222 (Given - Provider: Janina Shell RN) 174 (Given - Provider: Shantal Srivastava RN) DULoxetine (Cymbalta) DR capsule 20 mg (CANCELED) 20 mg, Oral, Every morning, First dose on Fri12/22/24 at 0600, Until Discontinued, Routine 0534 (Given - Provider: Angeline Bennett RN) DULoxetine (Cymbalta) DR capsule 20 mg 20 mg, Oral, Daily, First dose (after last modification) on Fri12/23/24 at 0900, Until Discontinued, Routine 09 (Given - Provider: Shantal Srivastava RN) DULoxetine (Cymbalta) DR capsule 60 mg 60 mg, Oral, Daily, First dose on Fri12/22/24 at 0900, Until Discontinued, Routine 08 (Given - Provider: Shantal Srivastava RN) 903 (Given - Provider: Shantal Srivastava RN) ezetimibe (Zetia) tablet 10 mg 10 mg, Oral, Nightly, First dose on Fri12/21/24 at 2130, Until Discontinued, Routine 002 (Given - Provider: Angeline Bennett RN)2002 (Given - Provider: Melodie Villafuerte RN) furosemide (Lasix) injection 80 mg (COMPLETED) 80 mg, Intravenous, Once, 1 dose, On Fri12/21/24 at 1950, STAT 2019 (Given - Provider: Yolanda Freeman RN) furosemide (Lasix) injection 80 mg (COMPLETED) 80 mg, Intravenous, Once, 1 dose, On Fri12/22/24 at 1100, Routine 1128 (Given - Provider: Shantal Srivastava RN) gabapentin (Neurontin) capsule 600 mg 600 mg, Oral, 2 times daily, First dose on Fri12/21/24 at 2130, Until Discontinued, Routine 222 (Given - Provider: Janina Shell RN) 08 (Given - Provider: Shantal Srivastava RN)2002 (Given - Provider: Melodie Villafuerte RN) 903 (Given - Provider: Shantal Srivastava RN) hydroxychloroquine (Plaquenil) tablet 200 mg 200 mg, Oral, Nightly, First dose on Fri12/21/24 at 2130, Until Discontinued, Routine 222 (Given - Provider: Janina Shell RN) 2003 (Given - Provider: Melodie Villafuerte RN) insulin glargine-yfgn 100 UNIT/ML injection 5 Units 5 Units, Subcutaneous, 2 times daily, First dose on Fri12/21/24 at 2130, Until Discontinued, Routine 222 (Given - Provider: Janina Shell RN) 0828 (Given - Provider: Shantal Srivastava RN)2032 (Given - Provider: Melodie Villafuerte, EVITA) 0922 (Given - Provider: Shantal Srivastava RN) insulin lispro (Admelog) 100 units/mL injection - Correction - Standard Dose 0-5 Units, Subcutaneous, 3 times daily with meals, First dose on Fri12/22/24 at 0830, Until Discontinued, Routine 0756 (Not Given - Provider: Shantal Srivastava RN - Reason: Order parameters not met)1234 (Given - Provider: Shantal Srivastava RN)1748 (Given - Provider: Shantal Srivastava, EVITA) 0903 (Given - Provider: Shantal Srivastava RN)1206 (Given - Provider: Shashank Mcdonald RN) insulin lispro (Admelog) injection - Correction - Nighttime Dose 0-3 Units, Subcutaneous, 2 times nightly (2100 & 0300), First dose on Fri12/21/24 at 2130, Until Discontinued, Routine 2244 (Not Given - Provider: Janina Shell RN - Reason: Order parameters not met) 0300 (Canceled Entry - Provider: Angeline Bennett RN - Comment: 162 at HS)2038 (Not Given - Provider: Melodie Villafuerte RN - Reason: Order parameters not met) 0236 (Not Given - Provider: Melodie Villafuerte RN - Reason: Order parameters not met) latanoprost (Xalatan) 0.005 % ophthalmic solution 1 drop 1 drop, Both Eyes, Nightly, First dose on Fri12/21/24 at 2130, Until Discontinued, Routine 0023 (Given - Provider: Angeline Bennett RN)2026 (Given - Provider: Melodie Villafuerte, EVITA) levothyroxine (Synthroid, Levoxyl) tablet 125 mcg 125 mcg, Oral, Daily before breakfast, First dose on Fri12/22/24 at 0730, Until Discontinued, Routine 0630 (Given - Provider: Angeline Bennett RN) 0650 (Given - Provider: Melodie Villafuerte, EVITA) losartan (Cozaar) tablet 25 mg 25 mg, Oral, Daily, First dose on Fri12/23/24 at 0900, Until Discontinued, Routine 0904 (Given - Provider: Shantal Srivastava, EVITA) magnesium oxide (Mag-Ox) tablet 800 mg (COMPLETED) 800 mg, Oral, Once, 1 dose, On Fri12/23/24 at 1000, Routine 1047 (Given - Provider: Shantal Srivastava, EVITA) metoprolol succinate XL (Toprol-XL) 24 hr tablet 25 mg 25 mg, Oral, Every morning, First dose on Fri12/22/24 at 0600, Until Discontinued, Routine 0534 (Given - Provider: Angeline Bennett, EVITA) 0919 (Given - Provider: Shantal Srivastava, EVITA) mometasone-formoterol (Dulera 200) 200-5 MCG/ACT inhaler 2 puff(Linked Group 1) 2 puff, Inhalation, 2 times daily, First dose on Fri12/22/24 at 0900, Until Discontinued 0900 (Not Given - Provider: Sophia Laguna - Reason: Medication not available)192 (Given - Provider: Kwadwo Cole) 08 (Given - Provider: Sophia Laguna) mycophenolate (Cellcept) capsule 1,000 mg 1,000 mg, Oral, 2 times daily, First dose on Fri12/21/24 at 2130, Until Discontinued 0 (Given - Provider: Janina Shell RN) 08 (Given - Provider: Shantal Srivastava, EVITA)2003 (Given - Provider: Melodie Villafuerte, EVITA) 09 (Given - Provider: Shantal Srivastava RN) potassium chloride CR (Klor-Con) ER tablet 20 mEq (COMPLETED) 20 mEq, Oral, Once, 1 dose, On Fri12/21/24 at 2230, Routine 0021 (Given - Provider: Angeline Bennett, EVITA) sodium chloride 0.9 % flush 10 mL(Linked Group 2) 10 mL, Intravenous, Every 12 hours, First dose on Fri12/21/24 at 2130, Until Discontinued, Routine 0023 (Given - Provider: Angeline Bennett, EVITA)0834 (Given - Provider: Shantal Srivastava, EVITA)2003 (Given - Provider: Melodie Villafuerte RN) 0837 (Given - Provider: Shantal Srivastava, EVITA) Tiotropium [place] Monohydrate (Spiriva Respimat) 2.5 MCG/ACT inhaler 2 puff(Linked Group 1) 2 puff, Inhalation, Daily, First dose on Fri12/22/24 at 0900, Until Discontinued 0900 (Not Given - Provider: Sophia Laguna - Reason: Medication not available) 0814 (Given - Provider: Sophia Laguna) warfarin (Coumadin) tablet 5 mg (COMPLETED) 5 mg, Oral, Once, 1 dose, On Fri12/21/24 at 2255, Routine 0021 (Given - Provider: Angeline Bennett, EVITA) warfarin (Coumadin) tablet 5 mg 5 mg, Oral, User specified (Once per day on Friday), First dose on Fri12/23/24 at 1700, Until Discontinued, Routine warfarin (Coumadin) tablet 7.5 mg (COMPLETED) 7.5 mg, Oral, Once, 1 dose, On Fri12/22/24 at 1700, Routine 1748 (Given - Provider: Shantal Srivastava, EVITA) warfarin (Coumadin) tablet 7.5 mg 7.5 mg, Oral, User specified (Every Friday), First dose on Fri12/28/24 at 1700, Until Discontinued, Routine PRN Medication Order 12/21/2024 12/22/2024 12/23/2024 acetaminophen (Tylenol) tablet 650 mg 650 mg, Oral, Every 6 hours PRN, Starting on Fri12/22/24 at 0000, Until Fri12/23/24 at 1610, Routine, mild pain 0021 (Given - Provider: Jacquelyn Bennett RN) albuterol (Proventil) (2.5 MG/3ML) 0.083% nebulizer solution 2.5 mg 2.5 mg, Nebulization, Every 6 hours PRN, Starting on Fri12/21/24 at 2134, Until Fri12/23/24 at 1610, Routine, shortness of breath, wheezing dextrose 10 % (D10W) bolus 125 mL(Linked Group 3) 125 mL, Intravenous, Every 15 min PRN, Starting on Fri12/21/24 at 2127, Until Fri12/23/24 at 1610, Administer over 15 Minutes, Routine, low blood sugar BG 51-89 mg/dL dextrose 10 % (D10W) bolus 250 mL(Linked Group 3) 250 mL, Intravenous, Every 15 min PRN, Starting on Fri12/21/24 at 2127, Until Lurdes 12/23/24 at 1610, Administer over 15 Minutes, Routine, PRN low blood sugar BG =/<50 mg/dL glucagon (human recombinant) injection 1 mg(Linked Group 3) 1 mg, Intramuscular, Every 15 min PRN, Starting on Fri12/21/24 at 7, Until Lurdes 12/23/24 at 1610, Routine, low blood sugar per Hypoglycemia Prevention and Treatment protocol glucose (Glutose) 40 % oral gel 15-30 grams of glucose(Linked Group 3) 15-30 grams of glucose, Sublingual, Every 15 min PRN, Starting on Fri12/21/24 at 2126, Until Lurdes 12/23/24 at 1610, Routine, low blood sugar, per Hypoglycemia Prevention and Treatment protocol sodium chloride 0.9 % flush 10 mL(Linked Group 2) 10 mL, Intravenous, As needed, Starting on Fri12/21/24 at 2125, Until Fri12/23/24 at 1610, Routine, line care Linked Groups Order Group 1: Tiotropium [place] Monohydrate (Spiriva Respimat) 2.5 MCG/ACT inhaler 2 puffJump to med 2 puff, Inhalation, Daily, First dose on Fri12/22/24 at 0900, Until Discontinued And mometasone-formoterol (Dulera 200) 200-5 MCG/ACT inhaler 2 puffJump to med 2 puff, Inhalation, 2 times daily, First dose on Fri12/22/24 at 0900, Until Discontinued Group 2: Insert peripheral IV (COMPLETED) Once, On Fri12/21/24 at 2125, For 1 occurrence And Saline lock IV (COMPLETED) Once, On Fri12/21/24 at 2125, For 1 occurrence And sodium chloride 0.9 % flush 10 mLJump to med 10 mL, Intravenous, Every 12 hours, First dose on Fri12/21/24 at 2130, Until Discontinued, Routine And sodium chloride 0.9 % flush 10 mLJump to med 10 mL, Intravenous, As needed, Starting on Fri12/21/24 at 2125, Until Lurdes 12/23/24 at 1610, Routine, line care Group 3: glucose (Glutose) 40 % oral gel 15-30 grams of glucoseJump to med 15-30 grams of glucose, Sublingual, Every 15 min PRN, Starting on Fri12/21/24 at 2127, Until Lurdes 12/23/24 at 1610, Routine, low blood sugar, per Hypoglycemia Prevention and Treatment protocol Or dextrose 10 % (D10W) bolus 125 mLJump to med 125 mL, Intravenous, Every 15 min PRN, Starting on Fri12/21/24 at 2127, Until Lurdes 12/23/24 at 1610, Administer over 15 Minutes, Routine, low blood sugar BG 51-89 mg/dL Or dextrose 10 % (D10W) bolus 250 mLJump to med 250 mL, Intravenous, Every 15 min PRN, Starting on Fri12/21/24 at 2127, Until Lurdes 12/23/24 at 1610, Administer over 15 Minutes, Routine, PRN low blood sugar BG =/<50 mg/dL Or glucagon (human recombinant) injection 1 mgJump to med 1 mg, Intramuscular, Every 15 min PRN, Starting on Fri12/21/24 at 2126, Until Lurdes 12/23/24 at 1610, Routine, low blood sugar per Hypoglycemia Prevention and Treatment protocol documented in this encounter Additional Health Concerns Assessment Noted Time PHQ-9 Depression Total Score: 0 09/09/19 11:19 AM EDT A fall risk assessment has been complete d for the patient 12/06/2024 11:29 AM EDT A Body Mass Index follow-up plan has been documented for the patient 12/23/2024 11:25 AM EDT documented as of this encounter Care Teams Vegetable Sorter Relationship Specialty Start Date End Date Alisa Kunz DO [address] [place] [address] PCP - General Internal Medicine 12/07/24 Alisa Kunz DO [address] [place] [address] Internal Medicine 11/21/23 Kodi Bustos DO [address] [place] [phone] Surgeon Cardiothoracic Surgery 11/06/22 Sujit Arriola MD [address] [place] [address] Consulting Physician Pulmonary Disease 11/06/22 Sujit Reyes MD [address] [place] [address] Referring Physician 12/04/22 Zee Lazar DO [address] [place] [address] [id number] Resident 09/08/24 Fili Morley III, RN [address] [facility], [address] [place], [place] [id number] Building Specialist 12/22/24 01/05/25 documented as of this encounter
--- OUTSIDE RECORDS SUMMARY | 2024-12-27 09:40 | XMS_ITS | Encounter Summary ---
Author Organization [facility] Address [address] [place] [address] Care Team Providers Care Weld Inspector Name Role Phone Alisa Kunz DO Unavailable [phone] Kodi Bustos DO Unavailable [phone] Sjuit Arriola MD Unavailable [phone] Sujit Reyes MD Unavailable [phone] Zee Lazar DO Unavailable [phone] Alisa Kunz DO Primary Care Provider [phone] Milli KELLEY RN, Fili Noonan Unavailable Reason for Referral * Consultation (Routine) - Authorized Specialty Diagnoses / Procedures Referred By Contac t Referred To Contact Diagnoses Type 1 diabetes mellitus with hyperglycemia Anne-Marie Kolb APRN [address] [facility] [address] [place] [address] Phone: tel: fax: Referral ID Status Reason Start Date Expiration Date V isits Requested Visits Authorized [id number] Authorized 12/27/2024 06/28/2026 1 1 Reason for Visit * Reason Comments Diabetes Encounter Details Date Type Department Care Team (Late st Contact Info) Description 12/27/2024 9:40 AM EDT Office Visit [facility] Endocrinology [address] [place] [address] Anne-Marie Kolb, MANAGER RESEARCH DEVELOPMENT [address] [place] [address] Type 1 diabetes mellitus with other specified complication (Primary Dx); Neuropathy; Hyperlipidemia, unspecified hyperlipidemia type; PVD (peripheral vascular disease) Social History Tobacco Use Types Packs/Day Years [...] week 08/30/2022 How often do you attend [facility] or [facility]? 1 to 4 times [...] Recorded Patient Health Questionnaire-2 Score 2 12/27/2024 [facility] - [...] in a skilled nursing (including now)? No 12/22/2024 [facility] Utilities Answer Date Recorded In the past 12 months has th [employer], gas, oil, or water company threatened to [...] drink first t anselmo in the morning (EYE-HELP DESK MANAGER) to steady your nerves or to [...] Sign Reading Time Taken Comments Blood Pressure 122/63 12/27/2024 9:31 AM EDT Pulse 60 12/27/2024 9:31 AM EDT Temperature - - Respiratory Rate - - Oxygen Saturation - - Inhaled Oxygen Concentration - - Weight 65.3 kg (144 lb) 12/27/2024 9:31 AM EDT Patient too weak to stand o scales Height 162.6 cm (5' 4 ) 12/27/2024 9:31 AM EDT Body Mass Index 24.72 12/27/2024 9:31 AM EDT documented in this encounter Functional [...] Yoselin Li documented as of this encounter Miscellaneous Notes * Patient Instructions - Anne-Marie Kolb APRN - 12/27/2024 9:40 AM EDT Lab Results Component Value Date HGBA1C 8.7 (H) 11/20/2024 CHANGES: Adjust Toujeo to 8 units in the morning only Continue Lispro 3 units with BK and lunch and 2u with supper plus 1:50>150 - call the diabetes education team with any questions or concerns [phone] * Progress Notes - Anne-Marie Kolb APRN - 12/27/2024 9:40 AM EDT Images from the original note were not included. Subjective Michelle Felipe is a 74 y.o. female who presents with a friend for a follow up evaluation of Diabetes Mellitus Type 1. Patient was diagnosed in 1959. Current symptoms/problems include hypoglycemia . Past medical history includes obstructive lung disease, HFpEF, CVA, A fib on Eliquis, complete heart block s/p permanent pacemaker, CAD s/p CABG Diabetes - Last OV 08/04/24. Since then she was hospitalized twice: ->11/20/2024 - 11/29/2024 for acute ischemic stroke in the right temporal lobe, thought to be cardioembolic. She was discharged to [facility] ->12/21/24-12/23/24 again with HF exacerbation and pleural effusion 11/20/24 A1c 8.7% from 7.9% -> 8.4% -> 7.9% -> 8.1%-> 7.9% - concerned for hypoglycemia. Reports she was 55 this AM and is frequently low when waking History of DKA: Denies. Current treatment includes intensive insulin injection program Toujeo 6 units every morning and 5u every evening Lispro 3 units with BK and lunch and 2u with supper plus 1:50>150 Estimated TDD: 15-20 units Compliance at present is estimated to be good. Known diabetic complications: peripheral neuropathy, cardiovascular disease, cerebrovascular disease, and peripheral vascular disease - neuropathy more bothersome than previous Cardiovascular risk factors: advanced age (older than 55 for men, 65 for women), diabetes mellitus,dyslipidemia, hypertension, and sedentary lifestyle On JAVON or ARB: No On Statin: Yes- pitavastatin +zetia Current diet: well balanced and on average, 3-4 small meals per day. No sugary drinks Current exercise: no regular exercise - they are checking blood glucose 4 or more times per day via CGM CGM: Dexcom G7 Dates:12/14/24-12/27/24 Data:average glucose 203, GMI 8.2%, 37% in target range, 2% low Interpretation:generalized daytime hyperglycemia from noon-11p -Hypoawareness intact <70. Denies LOC associated with [...] light. Cardiovascular: Rate and Rhythm: Normal rate. Comments: +PVD to BLE. Skin annmarie and cool to the touch. Patient reports this is her baseline Pulmonary: Effort: Pulmonary effort is normal. Comments: Wearing supplemental O2 Abdominal: General: Abdomen is flat. Musculoskeletal: Cervical back: Normal range of motion and neck supple. Right lower leg: No edema. Left lower leg: No edema. Left foot: Charcot foot present. Feet: Comments: Using w/c Skin: General: Skin is warm and dry. Neurological: General: No focal deficit present. Mental Status: She is alert and oriented to person, place, and time. Psychiatric: Mood and Affect: Mood normal. Behavior: Behavior normal. Thought Content: Thought content normal. Judgment: Judgment normal. Lab Review Glucose, Plasma (mg/dL) Date Value 12/23/2024 202 (H) 12/22/2024 178 (H) 12/21/2024 285 (H) POCT Hemoglobin A1C Date Value 04/26/2024 7.9 % 01/26/2024 8.0 % 10/22/2023 8.0 % 02/20/2021 8.1 % (A) 09/06/2020 8.5 % (A) 11/25/2019 7.7 Hemoglobin A1c (%) Date Value 11/20/2024 8.7 (H) 11/19/2024 8.79 (H) 08/14/2024 7.9 (H) 05/24/2024 8.4 (H) CO2, Plasma (mmol/L) Date Value 12/23/2024 31 (H) 12/22/2024 34 (H) 12/21/2024 28 BUN, Plasma (mg/dL) Date Value 12/23/2024 22 12/22/2024 25 (H) 12/21/2024 26 (H) Creatinine, Plasma (mg/dL) Date Value 12/23/2024 0.89 12/22/2024 0.86 12/21/2024 0.81 Assessment/Plan # Diabetes Mellitus Type 1, is uncontrolled. Progressed with 11/20/24 A1c 8.7% from 7.9% - extensive review and discussion of CGM download completed with the patient Adjust Toujeo to 8 units in the morning only Continue Lispro 3 units with BK and lunch and 2u with supper plus 1:50>150d plus 1:50>150 correction (if experiences hypoglycemia, start correction with glucose readings >200 Refills reviewed Continue using CGM to test BG 4+ times daily to adjust insulin doses for MDI Labs- up to date Encouraged yearly eye exam Encouraged daily foot care Follow up: 3 months for chronic care management of DM Neuropathy - stable - several open blisters to toes. No current overt s/s of infection, although difficult to determineas areas recently had betadine applied - recommend daily foot checks Hyperlipidemia - Stable - Continue on statin and zetia +warfarin # PVD - discussed referral to vascular, to further discuss with PCP The following Diabetes education was reviewed: [x]SBGM [...] care. Electronically signed by: Anne-Marie Kolb APRN [facility] ENDOCRINOLOGY [address] [place] [address] [address] [place]. [address] PHONE [phone] FAX: [phone] * Progress Notes - Flower Gomez, RN - 12/27/2024 9:40 AM EDT Report called to [facility] charge nurse Anu. Flower Gomez, EVITA documented in this encounter Plan of Treatment Upcoming Encounters Date Type Department Care Team (Late st Contact Info) Description 01/06/2025 2:00 PM EDT Office Visit [facility] [address] [place] [address] Lavern Shoemaker MD [address] [phone] 01/12/2025 1:10 PM EST Office Visit [facility] Specialties [address] [place] [address] Noris Yee MD [address] [place] [address] 01/12/2025 2:00 PM EST Office Visit [facility] [address] [place] [address] Ezra Fine MD [address] [place] [address] 01/27/2025 10:00 AM EST Office Visit [facility] [address] [place] [address] Sujit Cole APRN [address] [place] [address] 02/02/2025 8:40 AM EST Office Visit [facility] Internal Medicine [address] [place] [address] Alisa Kunz DO [address] [place] [address] 02/09/2025 12:20 PM EST Office Visit [facility] Endocrinology [address] [place] [id number] Anne-Marie Kolb, MANAGER RESEARCH DEVELOPMENT [address] [facility] [address] [place] [address] 04/18/2025 2:40 PM EST Office Visit [facility] Endocrinology [address] [place] [address] Anne-Marie Kolb, MANAGER RESEARCH DEVELOPMENT [address] [facility] [address] [place] [address] Scheduled Referrals Name Type Priority Associated Diagnoses Orde r Schedule Follow Up [facility] Outpatient Referral Routine Type 1 diabetes mellitus with other specified complication Expected: 03/29/2025 (Approximate), Expires: 06/30/2026 documented as of this encounter Visit Diagnoses Diagnosis Type 1 diabetes mellitus with other specified complication- Primary Neuropathy Mononeuritis of unspecified site Hyperlipidemia, unspecified hyperlipidemia type PVD (peripheral vascular disease) Unspecified peripheral vascular disease documented in this encounter Additional Health Concerns Assessment Noted Time PHQ-9 Depression Total Score: 0 09/09/19 25 11:19 AM EDT A fall risk assessment has been complete d for the patient 12/27/2024 9:37 AM EDT A Body Mass Index follow-up plan has been documented for the patient 12/27/2024 10:57 AM EDT documented as of this encounter Care Teams Weld Inspector Relationship Specialty Start Date End Date Alisa Kunz DO [address] [place] [address] PCP - General Internal Medicine 12/07/24 Alisa Kunz DO [address] [place] [address] Internal Medicine 11/21/23 Kodi Bustos DO [address] [place] [address] Surgeon Cardiothoracic Surgery 11/06/22 Sujit Arriola MD [address] [place] [address] Consulting Physician Pulmonary Disease 11/06/22 Sujit Reyes MD [address] [place] [address] Referring Physician 12/04/22 Zee Lazar DO [address] [place], [place] [id number] Resident 09/08/24 Fili Morley III, RN [address] [facility], [address] [place] [address] Monument Installer 12/22/24 01/05/25 documented as of this encounter
--- OUTSIDE RECORDS SUMMARY | 2024-12-27 11:55 | XMS_ITS | Encounter Summary ---
Author Organization [facility] Address [address] [place] [address] Care Team Providers Care Black Pickler Name Role Phone Alisa Kunz DO Unavailable [phone] Kodi Bustos DO Unavailable [phone] Sujit Arriola MD Unavailable [phone] Sujit Reyes MD Unavailable [phone] Zee Lazar DO Unavailable [phone] Alisa Kunz DO Primary Care Provider [phone] Milli KELLEY RN, Fili Noonan Unavailable [phone] Reason for Referral * Consultation (Routine) - Authorized Specialty Diagnoses / Procedures Referred By Contac t Referred To Contact Neurology Diagnoses Weakness History of stroke Corey Yu MD [address] [place] [address] Phone: tel: fax: Referral ID Status Reason Start Date Expiration Date Visits Requested Visits Authorized [id number] Authorized Specialty Services Required 06/28/2026 1 1 Reason for Visit * Reason Comments Stroke Alert Encounter Details Date Type Department Care Team ([facility] Contact Info) Description 12/27/2024 11:55 AM EDT - 12/27/2024 5:12 PM EDT Emergency [facility] Emergency Department [address] [place] [id number] Edgar Mancilla MD [address] [place] [address] Corey Yu MD [address] [place] [address] Weakness (Primary Dx); History of stroke Discharge Disposition: Home or Self Care Social [...] Recorded Patient Health Questionnaire-2 Score 2 12/27/2024 [facility] [place] of Occupat ional Health - Occupational Stress [...] living in a snf (including now)? No 12/22/2024 [facility] Utilities Answer Date Recorded In the [...] first t anselmo in the morning (EYE-CAFETERIA ATTENDANT) to steady your nerves or to [...] Sign Reading Time Taken Comments Blood Pressure 163/75 12/27/2024 5:00 PM EDT Pulse 60 12/27/2024 5:00 PM EDT Temperature 36.5 C (97.7 F) 12/27/2024 11:55 AM EDT Respiratory Rate 12 12/27/2024 5:00 PM EDT Oxygen Saturation 100% 12/27/2024 5:00 PM EDT Inhaled Oxygen Concentration - - Weight 65.6 kg (144 lb 10 oz) 12/27/2024 12:19 P M EDT Height - - Body Mass Index 24.82 12/27/2024 9:31 AM EDT documented in this [...] Wish to be (Past 1 Month) No 12:46 PM EDT Yoselin Li 2. Non-Specific Active Suici dillon Thoughts (Past 1 Month) No 12/27/2024 12:46 PM EDT Uzair Li 6. Suicidal Behavior (Lifetime) No 12:46 PM EDT Yoselin Li documented as of this encounter Discharge Instructions * Discharge Instructions* Ebenezer Brady MD - 12/27/2024 2:52 PM EDT You were seen emergency department for evaluation of weakness. At this time no further emergent workup is indicated. Please keep a blood pressure log and call your primary care doctor for follow up as soon as they can see you. Please return to ED if your symptoms worsen, change in location, change in severity, new symptoms develop or if you become concerned for your health. It is important to follow-up with your primary care physician THOMPSON and let them know that you were seen in the emergency department today. Thank you. documented in this encounter Medications at Time [...] Take 1 tablet by mouth nightly. 09/15/2024 insulin glargine (Toujeo SoloStar) 300 UNIT/ML injection pen (1 UNIT DIAL)Indications:Ty pe 1 diabetes mellitus with other specified complication Inject 8 Units under the skin every morning. 4.5 mL 2 12/27/2024 insulin lispro (HumaLOG KWIKPEN) 100 UNIT/ML injection penIndications:Type 1 diabetes mellitus with other specified complication Inject 2-3 units before meals plus 1:50>150. Max tdd 30 units 30 mL 2 12/27/2024 Lancets misc Use twice a day to [...] tabletIndications:S ystemic lupus erythematosus (SLE) in adult ([facility]) Take 2 tablets by mouth 2 times a day. 360 tablet 1 08/27/2024 nitroglycerin (Nitrostat) 0.[address] 1 tablet under the tongue every 5 minutes as needed. 04/12/2024 ondansetron ODT (Zofran-ODT) 4 MG disintegrating tablet Dissolve 1 tablet on the tongue every 8 hours as needed for nausea or vomiting. 20 tablet 12/24/2024 oxygen (O2) gas Inhale 2 L continuously. [...] tablet 07/15/2024 documented as of this encounter Miscellaneous Notes * Progress Notes - Lisbeth Nino RN - 12/27/2024 5:27 PM EDT Geriatric TRST alert visit. Pt scored 3 on TRST questionnaire. Pt lives with her , has many safety features in her home and uses a WC most days. Discussed fall safety measures for the home such as removing throw rugs, padding corners of griffiths/furniture, grab bars, etc. CM reviewed current DME used at home or if there is a need for DME to assist with mobility and safety. Discussed importance of regular PCP care and if they have an upcoming appts with PCP, access to prescription concerns, in-home care and medical transportation. Spoke with patient about food security/insecurity. Pt verbalized understanding. No other CM needs verbalized at this time. * ED Provider Notes - Ebenezer Brady MD - 12/27/2024 11:54 AM EDT - HPI No chief complaint on file. HPI Michelle Felipe is a 74 y.o. 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 Woke up this morning with generalized weakness, found to have blood sugar of 55 for which she repleted orally at home. 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 Denies current shortness of breath, chest pain, nausea, vomiting, dysuria. Only currently complaint is chronic neck pain. Patient History Past Medical History[1] Surgical History[2] Family History[3] Social History[4] Allergies: Allergies[5] Physical Exam ED Triage Vitals Temp Pulse Resp BP -- -- -- -- SpO2 Temp src Heart Rate Source Patient Position -- -- -- -- BP Location FiO2 (%) -- -- Physical Exam Constitutional: General: She is not in acute distress. HENT: Head: Normocephalic. Comments: No facial swelling Right Ear: External ear normal. Left Ear: External ear normal. Mouth/Throat: Mouth: Mucous membranes are dry. Eyes: General: No scleral icterus. Right eye: No discharge. Left eye: No discharge. Extraocular Movements: Extraocular movements intact. Pupils: Pupils are equal, round, and reactive to light. Cardiovascular: Rate and Rhythm: Normal rate. Heart sounds: Normal heart sounds. Pulmonary: Effort: Pulmonary effort is normal. No respiratory distress. Breath sounds: Normal air entry. Rales (Right lobe) present. Comments: Speaking full sentences. Symmetric chest rise Abdominal: General: Abdomen is flat. There is no distension. Palpations: Abdomen is soft. Tenderness: There is no abdominal tenderness. Musculoskeletal: General: No deformity. Normal range of motion. Cervical back: Normal range of motion and neck supple. No tenderness. Comments: Atraumatic, moves all extremities spontaneously Skin: General: Skin is warm and dry. Neurological: Mental Status: She is alert. Sensory: No sensory deficit. Motor: No weakness. Coordination: Coordination normal. Comments: NIHSS 2 for partial hemianopia and minor facial paralysis Psychiatric: Mood and Affect: Mood normal. Behavior: Behavior normal. No data recorded ED Course & MDM - Assessment: 74 y.o. female presents to ED with complaint of generalized weakness. It should be noted that the chronic conditions includes COPD on 2L oxygen, HFpEF, SLE, A fib with pacemaker placement, DM type 1,prior LV thrombus on warfarin, recurrent right pleural effusio, which currently is not at goal therapy. This complicates the clinical picture because it Comorbidities: may be exacerbating symptoms, in creases the amount and complexity of data to be reviewed, complicates the clinical workup, and increases the risk for morbidity On initial evaluation the patient is in no acute distress in his not appear acutely ill. Her airway, breathing, circulation was intact. Other than slightly elevated blood pressure, vitals unremarkable. She was initially on 4 L nasal cannula that was weaned to her baseline 2 L without issues. Initial NIH stroke scale score of 2 for partial hemianopia and minor facial paralysis. She did have an acute stroke 1 month ago in the right temporal lobe. EKG shows a ventricular paced rhythm of 60 with the expected wide QRS. She does have a prolonged QTC of 570 which is a bit longer than her typical QTCand 2 g magnesium sulfate given. No acute findings were appreciated on CT imaging of the head or neck. Neurology was present as this was a stroke alert and do not plan on admitting the patient, they do not feel as though this is an acute stroke. Laboratory workup personally interpreted me shows no acutely actionable findings. Her blood pressure was consistently creeping up throughout her encounter for which she was given 5 mg of hydralazine with improvement. Care handed off to oncoming providerpending magnesium infusion to finish running and likely discharge with PCP follow up. Differential Diagnosis: Stroke recrudescence, TIA, CVA, UTI, hypoglycemia, hypertension, among others In order to fully explore the differential diagnosis the following treatments and tests were ordered: ED Medication Administration from 12/27/2024 1151 to 12/27/2024 1218 Date/Time Order Dose Route Action 12/27/2024 1200 EDT iohexol (OMNIPaque) 350 MG/ML injection 100 mL 60 mL Intravenous Given All Other Orders Ordered Status Ordering Provider 12/27/24 1159 POCT glucose meter PROCEDURE ONCE Final result POCT, GENERIC PROVIDER 12/27/24 1156 Oxygen Therapy - Device: Nasal Cannula Continuous Comments: Oxygen per nursing protocol to maintain oxygen saturations above 94% Order ID Start Status Ordering Provider [id number] 12/27/24 1157 Completed EBENEZER BRADY [id number] 12/27/241999 Ordered BRADYFRANK AYALACE W [id number] 12/28/24 0800 Ordered BRADY, EBENEZER W 12/28/241999 Scheduled BRADY, EBENEZER W 12/29/24 0800 Scheduled BRADY, EBENEZER W 12/29/241999 Scheduled BRADY, EBENEZER W 12/30/24 0800 Scheduled BRADY, EBENEZER W 12/30/241999 Scheduled BRADY, EBENEZER W 12/31/24 0800 Scheduled BRADY, EBENEZER W 12/31/241999 Scheduled BRADY, EBENEZER W Ordered BRADY, EBENEZER W 12/27/24 1156 Cardiac monitoring Until discontinued Ordered BRADYEBENEZER 12/27/24 1156 Insert peripheral IV Once Ordered EBENEZER BRADY 12/27/24 1156 NPO diet Diet effective now Ordered EBENEZER BRADY 12/27/24 1156 POCT glucose Once Ordered EBENEZER BRADY 12/27/24 1156 CBC with Diff STAT Comments: Stroke Alert Ordered EBENEZER BRADY 12/27/24 1156 Prothrombin Time STAT Comments: Stroke Alert Ordered EBENEZER BRAYD 12/27/24 1156 Anti Xa Level Unfractionated Heparin STAT Comments: Stroke Alert Ordered EBENEZER BRADY 12/27/24 1156 APTT (PTT) STAT Comments: Stroke Alert Ordered EBENEZER BRADY 12/27/24 1156 Comprehensive Metabolic Panel STAT Comments: Stroke Alert Ordered EBENEZER BRADY 12/27/24 1156 Test Qualitative Plasma STAT Comments: Stroke Alert Ordered EBENEZER BRADY 12/27/24 1156 Troponin now and 120 min STAT Comments: Stroke Alert Ordered EBENEZER BRADY 12/27/[address] Head wo IV contrast Once Final result EBENEZER BRADY 12/27/[address] Angio Head Once Comments: The field above indicates approval for Radiology techs to use department protocols. Any changes will be communicated directly to the Ordering Service. In process EBENEZER BRADY 12/27/[address] Angio Neck Once Comments: The field above indicates approval for Radiology techs to use department protocols. Any changes will be communicated directly to the Ordering Service. In process EBENEZER BRADY 12/27/24 1156 ECG Adult Once Comments: Special Instructions: After CT Scan is completed upon arrival to room Ordered EBENEZER BRADY 12/27/24 1156 Consult to Neurology Once Specialty: Neurology Provider: (Not yet assigned) Ordered EBENEZER BRADY 12/27/24 1156 Stroke Alert Activation Notification Once Ordered EBENEZER BRADY Clinical Impressions as of 12/27/24 1548 Weakness Social Determinates of Health Risks (including Economic Stability, Education and level of understanding, Healthcare access and quality and concerning social factors): Social factors impacting patient's psychosocial well-being and Lives far away Ultimately, this patient was was signed out to [facility] (Signed Out) Patient care assumed by [facility], Dr. Davis, at shift change, tentative plan at the time of sign-out was finish mag infusion and likely discharge ED Prescriptions None - [1] Past Medical [...] and opening of airway Alcohol use Allergic 1972 Anemia Anxiety Arthritis Asthma Cellulitis 02/13/2024 Cellulitis [...] or viral conjunctivitis vs. Scleritis. - Needs [facility] eye exam. - Was ableto get patient in with [facility] ophthalmology right after our clinic [...] FRACTURE SURGERY BREAST BIOPSY Right 2014 [facility] benign CARDIAC PACEMAKER PLACEMENT N/A Pacemaker Placement from [facility] CARPAL TUNNEL RELEASE N/A Neuroplasty Decompression Median Nerve At Carpal Tunnel from [facility] CERVICAL BIOPSY W/ LOOP ELECTRODE EXCISION 2010 SECTION, CLASSIC 1977, 1979 SECTION, LOW TRANSVERSE N/A Section from [facility] COLONOSCOPY N/A Complete Colonoscopy from [facility] CORONARY ARTERY BYPASS GRAFT N/A CABG from [facility] EYE SURGERY N/A Eye Surgery from [facility] FRACTURE SURGERY SPINE SURGERY THORACENTESIS TOE SURGERY Left 02/07/2024 hematoma removal of upper skin on L big toe TONSILLECTOMY N/A Tonsillectomy from [facility] [3] Family History Problem Relation Name Age of Onset Conversions - Other Mother cindi stamper alfredito kelin Goiter (Diffuse Nontoxic) Heart disease Mother cindi stamper alfredito kelin Hypertension Mother cindi stamper alfredito kelin Stroke Mother cindi stamper alfredito kelin COPD Mother cindi stamper alfredito kelin Alpha-1 antitrypsin deficiency Mother cindi stamper alfredito kelin Arthritis Father Doron Antunez Hypercholesterolemia Father Doron Henriquezer Obesity Father Doron Antunez COPD Father Doron Henriquezer Alcohol abuse Father Doron Henriquezer Diabetes Sibling Cancer Other Doron E [place] Conversions - Other Other Goiter (Diffuse Nontoxic) Heart disease Other Cindi Marry Stamper Alfredito Kelin [4] Tobacco Use [...] the comment field Tetracyclines & Related Rash Ebenezer Brady MD Resident 12/27/24 1603 Cosigned by Edgar Mancilla MD at 12/28/2024 11:11 AM EDT Associated attestation - Edgar Mancilla MD - 12/28/2024 11:11 AM EDT I saw and evaluated the patient with the resident/fellow. I discussed the case with the resident/fellow and agree with the findings and plan as documented. * ED Triage Notes - Yoselin Li - 12/27/2024 11:54 AM EDT Pt arrived per EMS from [facility] with c/o L sd weakness. Sugar was in the 50s this morning, pt drank juice to return to normal. Wears 2 L NC at baseline. LKN 0730 today. On warfarin. GCS 15 Pmhx: CHF COPD Afib Past stroke in Nov 2024 * Progress Notes - Becca Davis MD - 12/27/2024 11:54 AM EDT Images from the original note were not included. ED TRANSFER OF CARE NOTE Transferring provider: Jose Antonio Transferring attending: Charo ELIZABETH Time: 1534 I received sign-out and accepted care of this patient from the previous ED providers caring for this patient. I reviewed the patient's history, exam, work- up, and treatment plan up to this point. Please see the primary ED Provider Note for complete elements of the history, physical exam, and ED course. PERTINENT HISTORY: In brief, Michelle Felipe is a 74 y.o. female with relevant PMH COPD on 2L oxygen, HFpEF, SLE, A fib, DM type 1, prior LV thrombus on warfarin, recurrent right pleural effusion requiring thoracentesis who presented to the ED for evaluation of hypoglycemia and weakness, now resolved. Prolonged Qtc, getting mag PENDING: I accepted care of this patient from the previous provider pending symptomatic improvement. Ultimately, on reassessment: Patient had no evidence of asymmetric weakness or arrhythmia. Patientendorsed feeling back to baseline. Reviewed neurology note and they did not recommend admission or further stroke workup at this time ED Medication Administration from 12/27/2024 1151 to 12/28/2024 0046 Date/Time Order Dose Route Action 12/27/2024 1200 EDT iohexol (OMNIPaque) 350 MG/ML injection 100 mL 60 mL Intravenous Given 12/27/2024 1304 EDT lactated Ringer's infusion 500 mL 500 mL Intravenous New Bag 12/27/2024 1306 EDT acetaminophen (Tylenol) tablet 650 mg 650 mg Oral Given 12/27/2024 1345 EDT lactated Ringer's infusion 500 mL 0 mL Intravenous Stopped 12/27/2024 1421 EDT HYDROmorphone (Dilaudid) injection 0.25 mg 0.25 mg Intravenous Given 12/27/2024 1449 EDT hydrALAZINE (Apresoline) injection 5 mg 5 mg Intravenous Given 12/27/2024 1521 EDT magnesium sulfate IVPB 2 g 2 g Intravenous New Bag 12/27/2024 1544 EDT magnesium sulfate IVPB 2 g 0 g Intravenous Stopped ED COURSE: Clinical Impressions as of 12/28/24 0046 Weakness History of stroke - Encouraged patient to follow up with primary care provider for further titration of blood pressure medication for hypertension. Patient will also keep a log for blood pressure. Patient is stable attime of discharge. Ultimately, this patient Was discharged Home (Discharge) The primary encounter diagnosis was Weakness. A diagnosis of History of stroke was alsopertinent to this visit. . Patient was counseled on the diagnoses. Discharge medications if any arelisted below. Listed medications are thought be either curative for listed diagnoses or will help control ongoing symptoms. Patient is requested to follow up with Patient's Primary Care Provider in order to obtain blood pressure management. Instructions on follow up as well as precautions to returnto the ER provided verbally by the EM provider, as well as written in patients discharge education packet. ED Prescriptions None Discharge Instructions You were seen emergency department for evaluation of weakness. At this time no further emergent workup is indicated. Please keep a blood pressure log and call your primary care doctor for follow up as soon as they can see you. Please return to ED if your symptoms worsen, change in location, change in severity, new symptoms develop or if you become concerned for your health. It is important to follow-up with your primary care physician THOMPSON and let them know that you were seen in the emergency department today. Thank you. Disposition Discharge AVS (Algerian Snapshot) - Printed 12/27/2024 Follow-Ups: Call Alisa Kunz DO (Internal Medicine) on 12/27/2024; call today or tomorrow to schedule follow up appointment Discharge Orders Discharge Ambulatory referral to Neurology Authorized - Becca Davis MD Cosigned by Corey Yu MD at 12/30/2024 6:21 PM EDT Associated attestation - Corey Yu MD - 12/30/2024 6:21 PM EDT I saw and evaluated the patient with the resident/fellow. I discussed the case with the resident/fellow and agree with the findings and plan as documented. documented in this encounter Plan of Treatment Upcoming Encounters Date Type Department Care Team (Late st Contact Info) Description 01/06/2025 2:00 PM EDT Office Visit [facility] Medicine Specialties [address] [place] [address] Lavern Shoemaker MD [address] [place] [address] 01/12/2025 1:10 PM EST Office Visit [facility] Medicine Specialties [address] [place] [address] Noris Yee MD [address] [place] [address] 01/12/2025 2:00 PM EST Office Visit [facility] [address] [place] [phone] Ezra Fine MD [address] [place] [phone] 01/27/2025 10:00 AM EST Office Visit [place] [facility] [address] [place] [address] Sujit Cole, [employer] [address] [place] [address] 02/02/2025 8:40 AM EST Office Visit [facility] Internal Medicine [address] [place] [phone] Alisa Kunz, DO [address] [place] [address] 02/09/2025 12:20 PM EST Office Visit [facility] Endocrinology [address] [place] [address] Anne-Marie Kolb, [employer] [address] [facility] [address] [place] [address] 04/18/2025 2:40 PM EST Office Visit [facility] Endocrinology [address] [place] [address] Anne-Marie Kolb, [employer] [address] [facility] [address] [place] [address] Scheduled Referrals Name Type Priority Associated Diagnoses Order Schedule Discharge Ambulatory referral to Neurology Outpatient Referral Routine Weakness History of stroke Expected: 12/27/2024 (Approximate), Expires: 06/30/2026 documented as of this encounter Procedures Procedure Name Priority Date/Time Associated Diagnosis Comments TROPONIN T, HIGH SENSITIVITY, 2 HOUR, PLASMA Timed 12/27/2024 2:26 PM EDT ANTI XA LEVEL UNFRACTIONATED HEPARIN STAT 12/27/2024 1:00 PM EDT URINALYSIS WITH REFLEX MICROSCOPIC AND CULTURE STAT 12/27/2024 12:56 PM EDT URINE MARIANO PANEL STAT 12/27/2024 12:5 6 PM EDT URINALYSIS MICROSCOPIC FOR UA REFLEX STAT 12/27/2024 12:56 PM EDT URINALYSIS WITH REFLEX MICROSCOPIC STAT 12/27/2024 12:56 PM EDT ECG ADULT STAT 12/27/2024 12:33 PM EDT TROPONIN T, HIGH SENSITIVITY, 0 HOUR, PLASMA, REFLEX TO 2 HOUR STAT 12/27/2024 12:26 PM EDT APTT STAT 12/27/2024 12:26 PM EDT PROTHROMBIN TIME(PT) / INR STAT 12/27/2024 12:26 PM EDT CBC WITH AUTO DIFFERENTIAL STAT 12/27/2024 12:26 PM EDT TEST QUALITATIVE PLASMA STAT 12/27/2024 12:26 PM EDT COMPREHENSIVE METABOLIC PANEL, PLASMA STAT 12/27/2024 12:[address] ANGIO NECK STAT 12/27/2024 12:[address] ANGIO HEAD STAT 12/27/2024 12:[address] HEAD WO IV CONTRAST STAT 12:03 PM EDT POCT GLUCOSE METER UNSOLICITED RESULTS Routine 12/27/2024 11:59 AM EDT OXYGEN THERAPY STAT 12/27/2024 11:56 AM EDT documented in this encounter Results * (ABNORMAL) Troponin T, High Sensitivity, 2 Hour, Plasma (12/27/2024 2:26 PM EDT) Pathologist [facility] Troponin T, High Sensitivity, 2 Hour 35(H) <14 ng/L 12/27/2024 3:10 PM EDT [facility] Troponin Delta 1 <10 ng/L 12/27/2024 3:10 PM EDT [facility] Troponin Delta Interpretation Not Significant 12/27/2024 3:10 PM EDT [facility] Comment:Not Significant. No acute change in troponin observed between the baseline and 2 hour samples. Blood Venous blood specimen / Unknown Venipuncture / Unknown 12/27/2024 2:26 PM EDT 12/27/2024 2:32 PM EDT us Edgar Mancilla MD LAB BLOOD ORDERABLES Final Re sult [facility] [address] [place] [address] * Anti Xa Level Unfractionated Heparin (12/27/2024 1:00 PM EDT) Pathologist [facility] Anti Xa Level Unfractionated Heparin <0.11 <1.00 IU/mL 12/27/2024 1:39 PM EDT [facility] Blood Venous blood specimen / Unknown Venipuncture / Unknown 12/27/2024 1:00 PM EDT 12/27/2024 1:03 PM EDT Narrative [facility] - 12/27/2024 1:39 PM EDT Therapeutic Range: UFH Full Dose and ACS/IL protocols*: 0.30 - 0.70 IU/mL UFH Low Dose protocol*: 0.25 - 0.50 IU/mL UFH prophylaxis: Not established us Edgar Mancilla MD LAB BLOOD ORDERABLES Final Re sult Performing Organization Address [facility] Co de Phone Number [facility] [address] [place] [address] * Urinalysis Microscopic Examination (12/27/2024 12:56 PM EDT) Urine Urine specimen obtained by clean catch procedure / Unknown Non-blood Collection / Unknown 12/27/2024 12:56 PM EDT 12/27/2024 1:04 PM EDT Edgar Mancilla MD LAB URINE ORDERABLES Final Re sult Performing Organization Address [facility] [facility] Co de Phone Number [facility] [address] [place] [address] * Urine Mariano Panel (12/27/2024 12:56 PM EDT) Extra Reflex urine culture not indicated 12/27/2024 3:01 PM EDT [facility] Urine Urine specimen obtained by clean catch procedure / Unknown Non-blood Collection / Unknown 12/27/2024 12:56 PM EDT 12/27/2024 1:43 PM EDT us Edgar Mancilla MD LAB URINE ORDERABLES Final Re sult Performing Organization Address [facility] Co de Phone Number [facility] [address] [place] [address] * (ABNORMAL) Urinalysis with reflex microscopic (Culture NOT Included) (12/27/2024 12:56 PM EDT) Color, Urine Yellow LAB URINALYSIS - AUTOMATED METHOD 12/27/2024 1:41 PM EDT [facility] Clarity, Urine Clear LAB URINALYSIS - AUTOMATED METHOD 12/27/2024 1:41 PM EDT [facility] Spec [place], Urine 1.015 1.005 - 1.030 LAB URINALYSIS - AUTOMATED METHOD 12/27/2024 1:41 PM EDT [facility] pH, Urine 7.0 5.0 - 8.0 LAB URINALYSIS - AUTOMATED METHOD 12/27/2024 1:41 PM EDT [facility] Protein, Urine 30(A) Negative mg/dL LAB URINALYSIS - AUTOMATED METHOD 12/27/2024 1:41 PM EDT [facility] Glucose, Urine Negative Negative mg/dL LAB URINALYSIS - AUTOMATED METHOD 12/27/2024 1:41 PM EDT [facility] Ketones, Urine Negative Negative mg/dL LAB URINALYSIS - AUTOMATED METHOD 12/27/2024 1:41 PM EDT [facility] Blood, Urine Trace(A) Negative LAB URINALYSIS - AUTOMATED METHOD 12/27/2024 1:41 PM EDT [facility] Bilirubin, Urine Negative Negative LAB URINALYSIS - AUTOMATED METHOD 12/27/2024 1:41 PM EDT [facility] Urobilinogen, Urine 1.0 0.2 to 1.0 mg/dL LAB URINALYSIS - AUTOMATED METHOD 12/27/2024 1:41 PM EDT [facility] Leukocytes, Urine Negative Negative LAB URINALYSIS - AUTOMATED METHOD 12/27/2024 1:41 PM EDT [facility] Nitrite, Urine Negative Negative LAB URINALYSIS - AUTOMATED METHOD 12/27/2024 1:41 PM EDT [facility] RBC, Urine 4 - 10(A) 0 to 3 /HPF LAB URINALYSIS - AUTOMATED METHOD 12/27/2024 1:41 PM EDT [facility] Comment:This result was prev iously suppressed from the chart. WBC, Urine 0 - 5 0 to 5 /HPF LAB URINALYSIS - AUTOMATED METHOD 12/27/2024 1:41 PM EDT [facility] Comment:This result was prev iously suppressed from the chart. Squamous Epithelial Cells 0 - 2 0 to 5 /HPF LAB URINALYSIS - AUTOMATED METHOD 12/27/2024 1:41 PM EDT [facility] Comment:This result was prev iously suppressed from the chart. Hyaline Casts 0 - 2 0 to 5 /LPF LAB URINALYSIS - AUTOMATED METHOD 12/27/2024 1:41 PM EDT [facility] Comment:This result was prev iously suppressed from the chart. Bacteria, Urine Negative Negative LAB URINALYSIS - AUTOMATED METHOD 12/27/2024 1:41 PM EDT [facility] Comment:This result was prev iously suppressed from the chart. Urine Urine specimen obtained by clean catch procedure / Unknown Non-blood Collection / Unknown 12/27/2024 12:56 PM EDT 12/27/2024 1:04 PM EDT Edgar Mancilla MD LAB URINE ORDERABLES Final Re sult Performing Organization Address City/[facility]/ZIP Co de Phone Number [facility] [address] [place] [address] * ECG Adult (12/27/2024 12:33 PM EDT) EKG DIAGNOSIS CLASS Abnormal MUSE ECG Ventricular Rate 60 BPM MUSE ECG QRSD Interval 200 ms MUSE ECG QT Interval 570 ms MUSE ECG QTC Interval 570 ms MUSE ECG R [place] -77 degrees MUSE ECG T Wave [place] 102 degrees MUSE ECG Diagnosis Poor data quality, interpretation may be adversely affected MUSE ECG Diagnosis Poor data quality MUSE ECG Diagnosis Ventricular-paced rhythm MUSE ECG Diagnosis unclear atrial rhythm MUSE ECG Diagnosis Abnormal ECG MUSE ECG Diagnosis MUSE ECG Diagnosis Confirmed by Jarad Rivera ([id number]) on 12/27/2024 1:05:12 PM MUSE ECG 12/27/2024 12:3 3 PM EDT 12/27/2024 1:05 PM EDT Edgar Mancilla MD ECG ORDERABLES Final Result Performing Organization Address City/[facility] Co de Phone Number MUSE ECG * (ABNORMAL) Troponin now and 120 min (12/27/2024 12:26 PM EDT) Troponin T, High Sensitivity, 0 Hour 36(H) <14 ng/L 12/27/2024 12:50 PM EDT [facility] Blood Venous blood specimen / Unknown Venipuncture / Unknown 12/27/2024 12:26 PM EDT 12/27/2024 12:28 PM EDT Edgar Mancilla MD LAB BLOOD ORDERABLES Final Re sult Performing Organization Address City/[facility]/ZIP Co de Phone Number [facility] [address] [place] [address] * Test Qualitative Plasma (12/27/2024 12:26 PM EDT) [facility] Test Negative Negative 12/27/2024 12:50 PM EDT [facility] Blood Venous blood specimen / Unknown Venipuncture / Unknown 12/27/2024 12:26 PM EDT 12/27/2024 12:28 PM EDT Narrative [facility] - 12/27/2024 12:50 PM EDT Reference Range: Males and non- females: Negative. us Edgar Mancilla MD LAB BLOOD ORDERABLES Final Re sult Performing Organization Address [facility]/ZIP Co de Phone Number [facility] [address] [place] [address] * (ABNORMAL) Comprehensive Metabolic Panel (12/27/2024 12:26 PM EDT) [facility] Glucose, Plasma 233(H) 74 - 99 mg/dL 12/27/2024 12:50 PM EDT [facility] BUN, Plasma 22 8 - 23 mg/dL 12/27/2024 12:50 PM EDT [facility] Creatinine, Plasma 0.94 0.60 - 1.10 mg/dL 12/27/2024 12:50 PM EDT [facility] BUN/Creatinine Ratio 23 12/27/2024 12:50 PM EDT [facility] Sodium, Plasma 131(L) 136 - 145 mmol/L 12/27/2024 12:50 PM EDT [facility] Potassium, Plasma 3.9 3.6 - 4.9 mmol/L 12/27/2024 12:50 PM EDT [facility] Chloride, Plasma 91(L) 97 - 107 mmol/L 12/27/2024 12:50 PM EDT [facility] CO2, Plasma 31(H) 22 - 29 mmol/L 12/27/2024 12:50 PM EDT [facility] Anion Gap 9 6 - 16 mmol/L 12/27/2024 12:50 PM EDT [facility] Total Calcium, Plasma 8.4(L) 8.9 - 10.2 mg/dL 12/27/2024 12:50 PM EDT [facility] Total Protein 6.5 6.3 - 7.9 g/dL 12/27/2024 12:50 PM EDT [facility] Albumin, Plasma 2.8(L) 3.5 - 5.2 g/dL 12/27/2024 12:50 PM EDT [facility] AST, Plasma 46(H) 10 - 35 U/L 12/27/2024 12:50 PM EDT [facility] Comment:Hemolyzed, result ma y be falsely increased. ALT, Plasma 19 10 - 35 U/L 12/27/2024 12:50 PM EDT [facility] Alkaline Phosphatase, Plasma 117 46 - 142 U/L 12/27/2024 12:50 PM EDT [facility] Total Bilirubin, Plasma 0.3 0.2 - 1.1 mg/dL 12/27/2024 12:50 PM EDT [facility] eGFRcr 64.2 mL/min/1.7 3m*2 12/27/2024 12:50 PM EDT [facility] Comment:Reported eGFRcr in m L/min/1.73m2 is based the CKD-EPI 2020 equation that does not use a race coefficient. Blood Venous blood specimen / Unknown Venipuncture / Unknown 12/27/2024 12:26 PM EDT 12/27/2024 12:28 PM EDT us Edgar Mancilla MD LAB BLOOD ORDERABLES Final Re sult [facility] [address] [place] [address] * (ABNORMAL) APTT (PTT) (12/27/2024 12:26 PM EDT) aPTT 41(H) 25 - 35 sec 12/27/2024 12:42 PM EDT [facility] Blood Venous blood specimen / Unknown Venipuncture / Unknown 12/27/2024 12:26 PM EDT 12/27/2024 12:28 PM EDT Edgar Mancilla MD LAB BLOOD ORDERABLES Final Re sult Performing Organization Address [facility]/ZIP Co de Phone Number [facility] [address] [place] [address] * (ABNORMAL) Prothrombin Time (12/27/2024 12:26 PM EDT) Prothrombin Time 28.9(H) 12.0 - 14.3 sec 12/27/2024 12:42 PM EDT [facility] INR 2.7(H) 0.9 - 1.1 12/27/2024 12:42 PM EDT [facility] Blood Venous blood specimen / Unknown Venipuncture / Unknown 12/27/2024 12:26 PM EDT 12/27/2024 12:28 PM EDT Narrative [facility] - 12/27/2024 12:42 PM EDT OPTIMAL INR RANGES FOR PATIENT ON ORAL ANTICOAGULANT THERAPY Prevention of venous thromboembolism INR 2.0 to 3.0 In patients with heart disease: Atrial fibrillation INR 2.0 to 3.0 Valvular heart disease INR 2.0 to 3.0 Tissue heart valves INR 2.0 to 3.0 Mechanical prosthetic valves INR 2.5 to 3.5 Prevention of recurrent IL INR 2.5 to 3.5 Edgar Mancilla MD LAB BLOOD ORDERABLES Final Re sult Performing Organization Address City/[facility] Co de Phone Number [facility] [address] [place] [address] * (ABNORMAL) CBC with Diff (12/27/2024 12:26 PM EDT) WBC Count 5.95 3.70 - 10.30 10*3/uL LAB HEMATOLOGY METHOD 12/27/2024 12:36 PM EDT [facility] RBC Count 3.43(L) 3.90 - 5.20 10*6/uL LAB HEMATOLOGY METHOD 12/27/2024 12:36 PM EDT [facility] HGB 10.2(L) 11.2 - 15.7 g/dL LAB HEMATOLOGY METHOD 12/27/2024 12:36 PM EDT [facility] HCT 31.8(L) 34.0 - 45.0 % LAB HEMATOLOGY METHOD 12/27/2024 12:36 PM EDT [facility] Platelet Count 298 155 - 369 10*3/uL LAB HEMATOLOGY METHOD 12/27/2024 12:36 PM EDT [facility] MCV 93 79 - 98 fL LAB HEMATOLOGY METHOD 12/27/2024 12:36 PM EDT [facility] MCH 29.7 26.0 - 32.0 pg LAB HEMATOLOGY METHOD 12/27/2024 12:36 PM EDT [facility] MCHC 32.1 30.7 - 35.5 g/dL LAB HEMATOLOGY METHOD 12/27/2024 12:36 PM EDT [facility] RDW 14.6(H) 11.5 - 14.5 % LAB HEMATOLOGY METHOD 12/27/2024 12:36 PM EDT [facility] MPV 10.1 8.8 - 12.5 fL LAB HEMATOLOGY METHOD 12/27/2024 12:36 PM EDT [facility] nRBC 0.0 <=0.0 per 100 WBCs LAB HEMATOLOGY METHOD 12/27/2024 12:36 PM EDT [facility] Differential Type Automated LAB HEMATOLOGY METHOD 12/27/2024 12:36 PM EDT [facility] Neutrophils % 69 % LAB HEMATOLOGY METHOD 12/27/2024 12:36 PM EDT [facility] Lymphocytes % 15 % LAB HEMATOLOGY METHOD 12/27/2024 12:36 PM EDT [facility] Monocytes % 10 % LAB HEMATOLOGY METHOD 12/27/2024 12:36 PM EDT [facility] Eosinophils % 3 % LAB HEMATOLOGY METHOD 12/27/2024 12:36 PM EDT [facility] Basophils % 2 % LAB HEMATOLOGY METHOD 12/27/2024 12:36 PM EDT [facility] Immature Granulocytes % 1 % LAB HEMATOLOGY METHOD 12/27/2024 12:36 PM EDT [facility] Neutrophils Absolute 4.22 1.60 - 6.10 10*3/uL LAB HEMATOLOGY METHOD 12/27/2024 12:36 PM EDT [facility] Lymphocytes Absolute 0.87(L) 1.20 - 3.90 10*3/uL LAB HEMATOLOGY METHOD 12/27/2024 12:36 PM EDT [facility] Monocytes Absolute 0.58 0.30 - 0.90 10*3/uL LAB HEMATOLOGY METHOD 12/27/2024 12:36 PM EDT [facility] Eosinophils Absolute 0.15 0.00 - 0.50 10*3/uL LAB HEMATOLOGY METHOD 12/27/2024 12:36 PM EDT [facility] Basophils Absolute 0.09 0.00 - 0.10 10*3/uL LAB HEMATOLOGY METHOD 12/27/2024 12:36 PM EDT [facility] Immature Granulocytes Absolute 0.04 0.00 - 0.06 10*3/uL LAB HEMATOLOGY METHOD 12/27/2024 12:36 PM EDT [facility] Blood Venous blood specimen / Unknown Venipuncture / Unknown 12/27/2024 12:26 PM EDT 12/27/2024 12:33 PM EDT Narrative [facility] - 12/27/2024 12:36 PM EDT Therapeutic decision making should be based on absolute values, rather than percentages. us Edgar Mancilla MD LAB BLOOD ORDERABLES Final Re sult [facility] [address] [place] [address] * CT Angio Neck (12/27/2024 12:16 PM EDT) Anatomical Region Laterality Modality Carotid Artery Computed Tomogra phy Impressions 12/27/2024 12:47 PM EDT Neck CTA: No flow significant stenosis noted. 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 Head CTA: Mild to moderate left, and mild right atherosclerotic narrowing of the supra clinoid bilateral internal carotid arteries. Otherwise, no flow significant stenosis noted. CRITICAL RESULT: No. COMMUNICATION: Per this written report. Drafted by Elier Lutz MD on 12/27/2024 12:28 PM Final report signed by Elier Lutz MD on 12/27/2024 12:47 PM Narrative 12/27/2024 12:47 PM EDT CLINICAL INDICATION: Neuro deficit, acute, stroke suspected TECHNIQUE: Head CTA: Axial images were obtained through the head during contrast bolus injection and multiplanar MIP images were created. Neck CTA: Axial images were obtained through the neck during bolus contrast injection and multiplanar reformatted and MIP images were created. 100 mL of Omnipaque 350 were administered intravenously. Total DLP (Dose-Length Product): 1632.12 mGy.cm (accession [id number]), 1632.12 mGy.cm (accession [id number]). Please note: The reported value represents the total of one or more individual components during the CT acquisition on this date and at this time, and as such, the same value may appear in more than one CT report depending on the interpreting/reporting physicians. COMPARISON: CTA from 11/20/2024 FINDINGS: Neck CTA: Diagnostic Quality: Adequate Aorta and Great Vessel Origins: There is no significant stenosis of the origins of the great arteries of the neck. Right Cervical Carotid System: The right common carotid artery and its origin are patent. There is mild atherosclerotic plaque at the carotid bifurcation. There is a 20-30% stenosis at the bifurcation by NASCET criteria. There is no evidence of dissection or pseudoaneurysm of the right common and internal carotid arteries. Moderate tortuosity of the distal right internal carotid artery. Left Cervical Carotid System: The left common carotid artery and its origin are patent. There is mild atherosclerotic plaque at the carotid bifurcation. There is a 10-20% stenosis at the bifurcation by NASCET criteria. There is no evidence of dissection or pseudoaneurysm of the left common and internal carotid arteries. Vertebral arteries: The origin of the right vertebral artery demonstrate mild atherosclerotic calcifications with no flow significant stenosis. The right vertebral artery is dominant and patent. The left vertebral artery is again noted significantly diminutive from its origin, favored congenital. Other Findings: There is partial visualization of right pleural effusion, no grossly changed from prior. Multilevel degenerative changes in the visualized portions of the cervical spine worse at C4-C5 where there appears to be moderate diffuse disc bulging and ligamentum flavum hypertrophy causing at least mild to moderate central canal stenosis. 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 The right vertebral artery demonstrates mild atherosclerotic changes proximally with no flow significant stenosis. The basilar artery appears patent. There is no aneurysm. Carotid Arteries: Right ICA: Moderate atherosclerotic plaque with mild narrowing of the supraclinoid right internal carotid artery. Left ICA: Moderate atherosclerotic plaque causing at least mild to moderate narrowing of the supraclinoid left internal carotid artery. Other Findings: There is no aneurysm of either internal carotid artery. [place] and Major Peripheral Branches: There is no significant stenosis or occlusion. There is no aneurysm. There is near origin of the left posterior cerebral artery. Other Findings: None. Procedure Note Elier Sotelo MD - 12/27/2024 CLINICAL INDICATION: Neuro deficit, acute, stroke suspected TECHNIQUE: Head CTA: Axial images were obtained through the head during contrastbolus injection and multiplanar MIP images were created. Neck CTA: Axial images were obtained through the neck during boluscontrast injection and multiplanar reformatted and MIP images werecreated. 100 mL of Omnipaque 350 were administered intravenously. Total DLP (Dose-Length Product): 1632.12 mGy.cm (accession [id number]),1632.12 mGy.cm (accession [id number]). Please note: The reported valuerepresents the total of one or more individual components during the CTacquisition on this date and at this time, and as such, the same value mayappear in more than one CT report depending on the interpreting/reportingphysicians. COMPARISON: CTA from 11/20/2024 FINDINGS: Neck CTA: Diagnostic Quality: Adequate Aorta and Great Vessel Origins: There is no significant stenosis of theorigins of the great arteries of the neck. Right Cervical Carotid System: The right common carotid artery and itsorigin are patent. There is mild atherosclerotic plaque at the carotidbifurcation. There is a 20-30% stenosis at the bifurcation by NASCETcriteria. There is no evidence of dissection or pseudoaneurysm of theright common and internal carotid arteries. Moderate tortuosity of thedistal right internal carotid artery. Left Cervical Carotid System: The left common carotid artery and itsorigin are patent. There is mild atherosclerotic plaque at the carotidbifurcation. There is a 10-20% stenosis at the bifurcation by NASCETcriteria. There is no evidence of dissection or pseudoaneurysm of the leftcommon and internal carotid arteries. Vertebral arteries: The origin of the right vertebral artery demonstratemild atherosclerotic calcifications with no flow significant stenosis. Theright vertebral artery is dominant and patent. 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 Other Findings: There is partial visualization of right pleural effusion,no grossly changed from prior. Multilevel degenerative changes in thevisualized portions of the cervical spine worse at C4-C5 where thereappears to be moderate diffuse disc bulging and ligamentum flavumhypertrophy causing at least mild to moderate central canal stenosis. Head CTA: Diagnostic Quality: Adequate Vertebrobasilar System: Diminutive appearance of the intracranial leftvertebral artery, favored congenital. The right vertebral arterydemonstrates mild atherosclerotic changes proximally with no flowsignificant stenosis. The basilar artery appears patent. There is noaneurysm. Carotid Arteries: Right ICA: Moderate atherosclerotic plaque with mild narrowing of thesupraclinoid right internal carotid artery. Left ICA: Moderate atherosclerotic plaque causing at least mild tomoderate narrowing of the supraclinoid left internal carotid artery. Other Findings: There is no aneurysm of either internal carotid artery. [place] and Major Peripheral Branches: There is no significantstenosis or occlusion. There is no aneurysm. There is near origin ofthe left posterior cerebral artery. Other Findings: None. IMPRESSION: Neck CTA: No flow significant stenosis noted. Redemonstration of diminutiveappearance of the left vertebral artery, favored congenital. Head CTA: Mild to moderate left, and mild right atherosclerotic narrowing of thesupra clinoid bilateral internal carotid arteries. Otherwise, no flowsignificant stenosis noted. CRITICAL RESULT: No. COMMUNICATION: Per this written report. Drafted by Elier Lutz MD on 12/27/2024 12:28 PM Final report signed by Elier Lutz MD on 12/27/2024 12:47 PM us Edgar Mancilla MD IMG CT PROCEDURES Final Resul t * CT Angio Head (12/27/2024 12:16 PM EDT) Anatomical Region Laterality Modality [place] Computed Tomogr aphy Impressions 12/27/2024 12:47 PM EDT Neck CTA: No flow significant stenosis noted. 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 Head CTA: Mild to moderate left, and mild right atherosclerotic narrowing of the supra clinoid bilateral internal carotid arteries. Otherwise, no flow significant stenosis noted. CRITICAL RESULT: No. COMMUNICATION: Per this written report. Drafted by Elier Lutz MD on 12/27/2024 12:28 PM Final report signed by Elier Lutz MD on 12/27/2024 12:47 PM Narrative 12/27/2024 12:47 PM EDT CLINICAL INDICATION: Neuro deficit, acute, stroke suspected TECHNIQUE: Head CTA: Axial images were obtained through the head during contrast bolus injection and multiplanar MIP images were created. Neck CTA: Axial images were obtained through the neck during bolus contrast injection and multiplanar reformatted and MIP images were created. 100 mL of Omnipaque 350 were administered intravenously. Total DLP (Dose-Length Product): 1632.12 mGy.cm (accession [id number]), 1632.12 mGy.cm (accession [id number]). Please note: The reported value represents the total of one or more individual components during the CT acquisition on this date and at this time, and as such, the same value may appear in more than one CT report depending on the interpreting/reporting physicians. COMPARISON: CTA from 11/20/2024 FINDINGS: Neck CTA: Diagnostic Quality: Adequate Aorta and Great Vessel Origins: There is no significant stenosis of the origins of the great arteries of the neck. Right Cervical Carotid System: The right common carotid artery and its origin are patent. There is mild atherosclerotic plaque at the carotid bifurcation. There is a 20-30% stenosis at the bifurcation by NASCET criteria. There is no evidence of dissection or pseudoaneurysm of the right common and internal carotid arteries. Moderate tortuosity of the distal right internal carotid artery. Left Cervical Carotid System: The left common carotid artery and its origin are patent. There is mild atherosclerotic plaque at the carotid bifurcation. There is a 10-20% stenosis at the bifurcation by NASCET criteria. There is no evidence of dissection or pseudoaneurysm of the left common and internal carotid arteries. Vertebral arteries: The origin of the right vertebral artery demonstrate mild atherosclerotic calcifications with no flow significant stenosis. The right vertebral artery is dominant and patent. The left vertebral artery is again noted significantly diminutive from its origin, favored congenital. Other Findings: There is partial visualization of right pleural effusion, no grossly changed from prior. Multilevel degenerative changes in the visualized portions of the cervical spine worse at C4-C5 where there appears to be moderate diffuse disc bulging and ligamentum flavum hypertrophy causing at least mild to moderate central canal stenosis. 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 The right vertebral artery demonstrates mild atherosclerotic changes proximally with no flow significant stenosis. The basilar artery appears patent. There is no aneurysm. Carotid Arteries: Right ICA: Moderate atherosclerotic plaque with mild narrowing of the supraclinoid right internal carotid artery. Left ICA: Moderate atherosclerotic plaque causing at least mild to moderate narrowing of the supraclinoid left internal carotid artery. Other Findings: There is no aneurysm of either internal carotid artery. [place] and Major Peripheral Branches: There is no significant stenosis or occlusion. There is no aneurysm. There is near origin of the left posterior cerebral artery. Other Findings: None. Procedure Note Elier Sotelo MD - 12/27/2024 CLINICAL INDICATION: Neuro deficit, acute, stroke suspected TECHNIQUE: Head CTA: Axial images were obtained through the head during contrastbolus injection and multiplanar MIP images were created. Neck CTA: Axial images were obtained through the neck during boluscontrast injection and multiplanar reformatted and MIP images werecreated. 100 mL of Omnipaque 350 were administered intravenously. Total DLP (Dose-Length Product): 1632.12 mGy.cm (accession [id number]),1632.12 mGy.cm (accession [id number]). Please note: The reported valuerepresents the total of one or more individual components during the CTacquisition on this date and at this time, and as such, the same value mayappear in more than one CT report depending on the interpreting/reportingphysicians. COMPARISON: CTA from 11/20/2024 FINDINGS: Neck CTA: Diagnostic Quality: Adequate Aorta and Great Vessel Origins: There is no significant stenosis of theorigins of the great arteries of the neck. Right Cervical Carotid System: The right common carotid artery and itsorigin are patent. There is mild atherosclerotic plaque at the carotidbifurcation. There is a 20-30% stenosis at the bifurcation by NASCETcriteria. There is no evidence of dissection or pseudoaneurysm of theright common and internal carotid arteries. Moderate tortuosity of thedistal right internal carotid artery. Left Cervical Carotid System: The left common carotid artery and itsorigin are patent. There is mild atherosclerotic plaque at the carotidbifurcation. There is a 10-20% stenosis at the bifurcation by NASCETcriteria. There is no evidence of dissection or pseudoaneurysm of the leftcommon and internal carotid arteries. Vertebral arteries: The origin of the right vertebral artery demonstratemild atherosclerotic calcifications with no flow significant stenosis. Theright vertebral artery is dominant and patent. 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 Other Findings: There is partial visualization of right pleural effusion,no grossly changed from prior. Multilevel degenerative changes in thevisualized portions of the cervical spine worse at C4-C5 where thereappears to be moderate diffuse disc bulging and ligamentum flavumhypertrophy causing at least mild to moderate central canal stenosis. Head CTA: Diagnostic Quality: Adequate Vertebrobasilar System: Diminutive appearance of the intracranial leftvertebral artery, favored congenital. The right vertebral arterydemonstrates mild atherosclerotic changes proximally with no flowsignificant stenosis. The basilar artery appears patent. There is noaneurysm. Carotid Arteries: Right ICA: Moderate atherosclerotic plaque with mild narrowing of thesupraclinoid right internal carotid artery. Left ICA: Moderate atherosclerotic plaque causing at least mild tomoderate narrowing of the supraclinoid left internal carotid artery. Other Findings: There is no aneurysm of either internal carotid artery. [place] of [place] and Major Peripheral Branches: There is no significantstenosis or occlusion. There is no aneurysm. There is near origin ofthe left posterior cerebral artery. Other Findings: None. IMPRESSION: Neck CTA: No flow significant stenosis noted. Redemonstration of diminutiveappearance of the left vertebral artery, favored congenital. Head CTA: Mild to moderate left, and mild right atherosclerotic narrowing of thesupra clinoid bilateral internal carotid arteries. Otherwise, no flowsignificant stenosis noted. CRITICAL RESULT: No. COMMUNICATION: Per this written report. Drafted by Elier Lutz MD on 12/27/2024 12:28 PM Final report signed by Elier Lutz MD on 12/27/2024 12:47 PM us Edgar M Charo MD IMG CT PROCEDURES Final Resul t * CT Head wo IV contrast (12/27/2024 12:03 PM EDT) Anatomical Region Laterality Modality Head Computed Tomogra phy Impressions 12/27/2024 12:17 PM EDT No definite acute ischemic or hemorrhagic changes. Area of encephalomalacia in the posterior right temporal lobe, most likely representing evolving chronic ischemic insults. Slightly more conspicuous focus of low-attenuation in the anterior left-sided richmond, age-indeterminate, could also represent evolving chronic insult. If there is further clinical concern for areas of acute ischemia, MRI can be helpful. CRITICAL RESULT: No. COMMUNICATION: Per this written report. Drafted by Elier Lutz MD on 12/27/2024 12:12 PM Final report signed by Elier Lutz MD on 12/27/2024 12:17 PM Narrative 12/27/2024 12:17 PM EDT CLINICAL INDICATION: Neuro deficit, acute, stroke suspected TECHNIQUE: Spiral axial CT images of the head were obtained without contrast administration. Total DLP (Dose-Length Product): . Please note: The reported value represents the total of one or more individual components during the CT acquisition on this date and at this time, and as such, the same value may appear in more than one CT report depending on the interpreting/reporting physicians. COMPARISON: CT head from 11/22/2024 and 11/20/2024 FINDINGS: Diagnostic Quality: Adequate. There is mild prominence of the cerebral sulci and lateral ventricles most consistent with mild brain volume loss. There is no acute large cortical infarct, intracranial hemorrhage or large mass on this noncontrast study. Area of encephalomalacia is noted in the posterior right temporal lobe, consistent with evolving chronic ischemic insult. More focal area of low-attenuation is also noted in the anterior left-sided aspect of the richmond, series 4 image 10, slightly more conspicuous as compared with prior CT, age- indeterminate. Moderate calcific atherosclerotic changes are noted in the bilateral cavernous internal carotid arteries. Images of the CTA were not available at the time of interpretation, Soft Tissues: No significant soft tissue swelling is present. Skull: There are no calvarial destructive lesions or fractures. Sinuses and Mastoids: The visualized portions of the paranasal sinuses are clear. The mastoid air cells are clear. Procedure Note Elier Sotelo MD - 12/27/2024 CLINICAL INDICATION: Neuro deficit, acute, stroke suspected TECHNIQUE: Spiral axial CT images of the head were obtained without contrastadministration. Total DLP (Dose-Length Product): . Please note: The reported valuerepresents the total of one or more individual components during the CTacquisition on this date and at this time, and as such, the same value mayappear in more than one CT report depending on the interpreting/reportingphysicians. COMPARISON: CT head from 11/22/2024 and 11/20/2024 FINDINGS: Diagnostic Quality: Adequate. There is mild prominence of the cerebral sulci and lateral ventricles mostconsistent with mild brain volume loss. There is no acute large cortical infarct, intracranial hemorrhage or largemass on this noncontrast study. Area of encephalomalacia is noted in theposterior right temporal lobe, consistent with evolving chronic ischemicinsult. More focal area of low-attenuation is also noted in the anteriorleft-sided aspect of the richmond, series 4 image 10, slightly moreconspicuous as compared with prior CT, age-indeterminate. Moderate calcific atherosclerotic changes are noted in the bilateralcavernous internal carotid arteries. Images of the CTA were not availableat the time of interpretation, Soft Tissues: No significant soft tissue swelling is present. Skull: There are no calvarial destructive lesions or fractures. Sinuses and Mastoids: The visualized portions of the paranasal sinuses areclear. The mastoid air cells are clear. IMPRESSION: No definite acute ischemic or hemorrhagic changes. Area ofencephalomalacia in the posterior right temporal lobe, most likelyrepresenting evolving chronic ischemic insults. Slightly more conspicuousfocus of low-attenuation in the anterior left- sided richmond,age-indeterminate, could also represent evolving chronic insult. If thereis further clinical concern for areas of acute ischemia, MRI can behelpful. CRITICAL RESULT: No. COMMUNICATION: Per this written report. Drafted by Elier Lutz MD on 12/27/2024 12:12 PM Final report signed by Elier Lutz MD on 12/27/2024 12:17 PM us Edgar Mancilla MD IMG CT PROCEDURES Final Resul t * (ABNORMAL) POCT glucose meter (12/27/2024 11:59 AM EDT) POCT Glucose 188(H) 74 - 99 mg/dL 12/27/2024 12:00 PM EDT [facility] Comment:Accuracy of [...] to the main labortory for testing. Comment 12/27/2024 12:00 PM EDT [facility] Investment Consultant ID Yoselin Varela 12/28/19 12:00 PM EDT [facility] Device ID [id number] 12/27/2024 12:00 PM EDT [facility] Specimen Type POC Capillary 12/27/2024 12:00 PM EDT [facility] Blood Capillary blood specimen / Unknown 12/27/2024 11:59 AM EDT 12/27/2024 12:00 PM EDT us Generic Provider Poct LAB POINT OF CARE TEST DOCKED DEVICE UNSOLICITED RESULTS Final Result [facility] [address] [place], [place] [id number] documented in this encounter Visit Diagnoses Diagnosis Weakness- Primary Other malaise and fatigue History of stroke Transient ischemic attack (TIA), and cerebral infarction without residual deficits documented in this encounter Administered Medications Inactive Administered Medications - up to 3 most recent administrations Medication Order MAR Action Action Date Dose Rate Site acetaminophen (Tylenol) tablet 650 mg 650 mg, Oral, Once, 1 dose, On Fri12/27/24 at 1250, STAT Given 12/27/2024 1:06 PM EDT 650 mg hydrALAZINE (Apresoline) injection 5 mg 5 mg, Intravenous, Once, 1 dose, On Fri12/27/24 at 1445, STAT Given 12/27/2024 2:49 PM EDT 5 mg HYDROmorphone (Dilaudid) injection 0.25 mg 0.25 mg, Intravenous, Once, 1 dose, On Fri12/27/24 at 1415, Routine Given 12/27/2024 2:21 PM EDT 0.25 mg iohexol (OMNIPaque) 350 MG/ML injection 100 mL 100 mL, Intravenous, Once in imaging, 1 dose, Starting on Fri12/27/24 at 1157, Until Fri12/27/24 at 1200, Routine, Imaging Protocol Orders Given 12/27/2024 12:00 PM EDT 60 mL lactated Ringer's infusion 500 mL 500 mL, Intravenous, Once, 1 dose, On Fri12/27/24 at 1250, STAT New Bag 12/27/2024 1:04 PM EDT 500 mL magnesium sulfate IVPB 2 g 2 g, Intravenous, Once, 1 dose, On Fri12/27/24 at 1450, STAT New Bag 12/27/2024 3:21 PM EDT 2 g 25 mL/hr documented in this encounter Active and Recently Administered Medications Times are shown in EDT. Scheduled Medication Order 12/25/2024 12/26/2024 12/27/2024 acetaminophen (Tylenol) tablet 650 mg (COMPLETED) 650 mg, Oral, Once, 1 dose, On Fri12/27/24 at 1250, STAT 1306 (Given - Provid er: Yoselin Li) hydrALAZINE (Apresoline) injection 5 mg (COMPLETED) 5 mg, Intravenous, Once, 1 dose, On Fri12/27/24 at 1445, STAT 1449 (Given - Provid er: Yoselin Li) HYDROmorphone (Dilaudid) injection 0.25 mg (COMPLETED) 0.25 mg, Intravenous, Once, 1 dose, On Fri12/27/24 at 1415, Routine 1421 (Given - Provid er: Yoselin Li) iohexol (OMNIPaque) 350 MG/ML injection 100 mL (COMPLETED) 100 mL, Intravenous, Once in imaging, 1 dose, Starting on Fri12/27/24 at 1157, Until Fri12/27/24 at 1200, Routine, Imaging Protocol Orders 1200 (Given - Provid er: Alysia Vences) lactated Ringer's infusion 500 mL (COMPLETED) 500 mL, Intravenous, Once, 1 dose, On Fri12/27/24 at 1250, STAT 1304 (New Bag - Prov ider: Yoselin Li)1345 (Stopped - Provider: Yoselin Li) magnesium sulfate IVPB 2 g (COMPLETED) 2 g, Intravenous, Once, 1 dose, On 12/27/24 at 1450, STAT 1521 (New Bag - Prov ider: Odilia Riggs, RN)1544 (Stopped - Provider: Odilia Riggs, RN) documented in this encounter Additional Health Concerns Assessment Noted Time PHQ-9 Depression Total Score: 0 09/09/19 11:19 AM EDT A fall risk assessment has been complete d for the patient 12/27/2024 9:37 AM EDT A Body Mass Index follow-up plan has been documented for the patient 12/27/2024 10:57 AM EDT documented as of this encounter Care Teams Black Pickler Relationship Specialty Start Date End Date Alisa Kunz DO [address] [place] [address] PCP - General Internal Medicine 12/07/24 Alisa Kunz DO [address] [place] [address] Internal Medicine 11/21/23 Kodi Bustos DO [address] [place] [address] Surgeon Cardiothoracic Surgery 11/06/22 Sujit rAriola MD [address] [place] [address] Consulting Physician Pulmonary Disease 11/06/22 Sujit Reyes MD [address] [place] [address] Referring Physician 12/04/22 Zee Lazar DO [address] [place] [address] Resident 09/08/24 Fili Morley III, RN [address] [facility], [address] [place] [id number] Ip Litigation Paralegal 12/22/24 01/05/25 documented as of this encounter
--- OUTSIDE RECORDS SUMMARY | 2025-01-05 15:51 | XMS_ITS | Encounter Summary ---
Author Organization [facility] Address [address] [place] [address] Care Team Providers Care Steel Post Installer Supervisor Name Role Phone Alisa Kunz DO Unavailable [phone] Kodi Bustos DO Unavailable [phone] Sujit Arriola MD Unavailable [phone] Sujit Reyes MD Unavailable [phone] Zee Lazar DO Unavailable [phone] Alisa Kunz DO Primary Care Provider [phone] Encounter Details Date Type Department Care Team (Latest Contact Info) Description 12/07/2024 Travel Social History Tobacco Use Types Packs/Day [...] any clubs o r organizations such as nondenominational groups, unions, fraternal or athletic groups, or [...] Recorded Patient Health Questionnaire-2 Score 0 10/27/2024 [facility] of Occupat ional [...] money to buy more. Never true 11/23/19 Within the past 12 months, t he [...] in a mcfp (including now)? No 11/22/2024 [facility] Utilities Answer Date Recorded In the [...] drink first t anselmo in the morning (EYE-NET WEB DEVELOPER) to steady your nerves or to [...] Description 01/06/2025 2:00 PM EDT Office Visit [facility] Medicine Specialties [address] [place] [address] Lavern Shoemaker MD [address] [place], [place] [id number] 01/12/2025 1:10 PM EST Office Visit [facility] Medicine Specialties [address] [place] [address] Noris Yee MD [address] [place] [address] 01/12/2025 2:00 PM EST Office Visit [facility] [address] [place] [address] Ezra Fine MD [address] [place] [address] 01/27/2025 10:00 AM EST Office Visit [facility] [address] [place] [address] Sujit Cole APRN [address] [place] [address] 02/02/2025 8:40 AM EST Office Visit [facility] Internal Medicine [address], [address] [place] [address] Alisa Kunz DO [address] [place] [address] 02/09/2025 12:20 PM EST Office Visit [facility] Endocrinology [address] [place] [address] Anne-Marie Kolb, CUSTOMER EXPERIENCE MANAGER [address] [facility] [address] [place] [address] 04/18/2025 2:40 PM EST Office Visit [facility] Endocrinology [address] [place] [address] Anne-Marie Kolb, CUSTOMER EXPERIENCE MANAGER [address] [facility] [address] [place] [address] documented as of this encounter [...] documented as of this encounter Care Teams Steel Post Installer Supervisor Relationship Specialty Start Date End Date Alisa Kunz DO [address] [place] [address] PCP - General Internal Medicine 12/07/24 Alisa Kunz DO [address] [place] [address] Internal Medicine 11/21/23 Kodi Bustos DO [address] [phone] Surgeon Cardiothoracic Surgery 11/06/22 Sujit Arriola MD [address] [place] [address] Consulting Physician Pulmonary Disease 11/06/22 Sujit Reyes MD [address] [place] [address] Referring Physician 12/04/22 Zee Lazar DO [address] [place] [address] Resident 09/08/24 documented as of this encounter
--- OUTSIDE RECORDS SUMMARY | 2025-01-05 15:51 | XMS_ITS | Encounter Summary ---
Author Organization [facility] Address [address] [place] [address] Care Team Providers Care Manager Aviation Name Role Phone Pcp, No Primary Care Provider Unavailabl e Alisa Kunz DO Unavailable [phone] Kodi Bustos DO Unavailable [phone] Sujit Arriola MD Unavailable [phone] Sujit Reyes MD Unavailable Zee Lazar DO Unavailable Encounter Details Date Type Department Care Team (Late st Contact Info) Description 12/01/2024 Telephone [facility] Internal Medicine [address] [place] [address] Alisa Kunz DO [address] [place] [address] Social History Tobacco Use Types [...] Recorded Patient Health Questionnaire-2 Score 0 10/27/2024 [facility]ational Stress Questionnaire [...] living in a fci (including now)? No 11/22/2024 [facility] Utilities [...] drink first t anselmo in the morning (EYE-METAL FINISH INSPECTOR) to steady your nerves or to [...] * Telephone Encounter - Shannen Stephens - 12/01/2024 4:12 PM EDT Spoke to the and the daughter pt is currently at [facility]. She was discharged from in 11/29 came in er via ambulance * Telephone Encounter - Sonam Pretty - 12/01/2024 4:04 PM EDT Clinical Concern/Question Reason for Call: Pt requesting a call back from triage nurse or PCP. Stated she had a stroke and iscurrently in a private facility. Pls advise. Thank you! Best contact number: [phone] (mobile) Optimal time of day to reach [...] Description 01/06/2025 2:00 PM EDT Office Visit [facility] Medicine Specialties [address] [place] [address] Lavern Shoemaker MD [address] [place] [address] 01/12/2025 1:10 PM EST Office Visit [facility] [address] [place] [address] Noris Yee MD [address] [place] [address] 01/12/2025 2:00 PM EST Office Visit [facility] [address] [place] [address] Ezra Fine MD [address] [place] [address] 01/27/2025 10:00 AM EST Office Visit [facility] [address] [place] [address] Sujit Cole, ASSEMBLER AIRCRAFT POWER PLANT [address] [place] [address] 02/02/2025 8:40 AM EST Office Visit [facility] Internal Medicine [address] [place] [address] Alisa Kunz, DO [address] [place] [address] 02/09/2025 12:20 PM EST Office Visit [facility] Endocrinology [address] [place] [address] Anne-Marie Kolb, ASSEMBLER AIRCRAFT POWER PLANT [address] [place] [address] 04/18/2025 2:40 PM EST Office Visit [facility] Endocrinology [address] [place] [address] Anne-Marie Kolb L, ASSEMBLER AIRCRAFT POWER PLANT [address] [place] [address] documented as of this encounter [...] as of this encounter Care Teams Manager Aviation Relationship Specialty Start Date End Date Pcp, No [address] [place] [address] PCP - General Family Medicine 11/21/23 12/06/24 Alisa Kunz, DO [address] [place] [address] Internal Medicine 11/21/23 Kodi Bustos DO [address] [address] Surgeon Cardiothoracic Surgery 11/06/22 Sujit Arriola MD [address] [place] [address] Consulting Physician Pulmonary Disease 11/06/22 Sujit Reyes MD [address] [place] [address] Referring Physician 12/04/22 Zee Lazar DO [address] [place] [address] Resident 09/08/24 documented as of this encounter
--- OUTSIDE RECORDS SUMMARY | 2025-01-05 15:51 | XMS_ITS | Encounter Summary ---
Author Organization [facility] Address [address] [place] [address] Care Team Providers Care Java Software Developer Name Role Phone Pcp, No Primary Care Provider Unavailabl e Alisa Kunz DO Unavailable [phone] Kodi Bustos DO Unavailable [phone] Sujit Arriola MD Unavailable [phone] Sujit Reyes MD Unavailable [phone] Zee Lazar DO Unavailable [phone] Encounter Details Date Type Department Care Team (Latest Contact Info) Description 11/15/2024 Travel Social History Tobacco Use Types Packs/Day [...] Recorded Patient Health Questionnaire-2 Score 0 10/27/2024 [facility] - [facility]ational Stress Questionnaire Answer Date [...] drink first t anselmo in the morning (EYE-MANAGEMENT TECH) to steady your nerves or to [...] Visit [facility] Medicine Specialties [address] [place] [address] Lavern Shoemaker MD [address] [place], [place] [phone] 01/12/2025 1:10 PM EST Office Visit [facility] Specialties [address] [place] [address] Noris Yee MD [address] [place] [address] 01/12/2025 2:00 PM EST Office Visit [facility] [address] [place] [address] Ezra Fine MD [address] [place] [address] 01/27/2025 10:00 AM EST Office Visit [facility] [address] [place] [address] Sujit Cole, YAMILET [address] [place] [address] 02/02/2025 8:40 AM EST Office Visit [facility] Internal Medicine [address] [place] [address] Alisa Kunz, [address] [place] [address] 02/09/2025 12:20 PM EST Office Visit [facility] Endocrinology [address] [place] [address] Anne-Marie Kolb, TEAM COORDINATOR [address] [place] [address] 04/18/2025 2:40 PM EST Office Visit [facility] Endocrinology [address] [place] [address] Anne-Marie Kolb, TEAM COORDINATOR [address] [place] [address] documented as of this encounter [...] documented as of this encounter Care Teams Java Software Developer Relationship Specialty Start Date End Date Pcp, No [address] [place] [address] PCP - General Family Medicine 11/21/23 12/06/24 Alisa Kunz DO [address] [place] [address] Internal Medicine 11/21/23 Kodi Bustos DO [address] [address] Surgeon Cardiothoracic Surgery 11/06/22 Sujit Arriola MD [address] [place] [address] Consulting Physician Pulmonary Disease 11/06/22 Sujit Reyes MD [address] [place] [address] Referring Physician 12/04/22 Zee Lazar DO [address] [place], [place] [id number] Resident 09/08/24 documented as of this encounter
--- OUTSIDE RECORDS SUMMARY | 2025-01-05 15:51 | XMS_ITS | Encounter Summary ---
Author Organization [facility] Address [address] [place] [address] Care Team Providers Care Pathology Supervisor Name Role Phone Pcp, No Primary Care Provider Unavailabl e Alisa Kunz DO Unavailable [phone] Kodi Bustos DO Unavailable [phone] Sujit Arriola MD Unavailable [phone] Sujit Reyes MD Unavailable Zee Lazar DO Unavailable [phone] Encounter Details Date Type Department Care Team (Latest Contact Info) Description 11/23/2024 Travel Social History Tobacco Use Types Packs/Day [...] [facility] - Occupational Stress Questionnaire [...] living in a half-way (including now)? No 11/22/2024 [facility] Utilities Answer Date Recorded In the [...] drink first t anselmo in the morning (EYE-COLOR MIXER) to steady your nerves or to get [...] Description 01/06/2025 2:00 PM EDT Office Visit [facility] Medicine Specialties [address], [address] [place] [address] Lavern Shoemaker MD [address] [place], [place] [id number] 01/12/2025 1:10 PM EST Office Visit [facility] Medicine Specialties [address], [address] [place] [address] Noris Yee MD [address] [place] [address] 01/12/2025 2:00 PM EST Office Visit [facility] [address], [address] [place] [address] Ezra Fine MD [address] [place] [address] 01/27/2025 10:00 AM EST Office Visit [facility] [address], 1st [place] [address] Sujit Cole, BROKER ASSISTANT [address] [place] [address] 02/02/2025 8:40 AM EST Office Visit [facility] Internal Medicine [address], 3rd [place] [address] Alisa Kunz, [address] [place] [address] 02/09/2025 12:20 PM EST Office Visit [facility] Endocrinology [address] [place] [address] Anne-Marie Kolb, BROKER ASSISTANT [address] [place] [address] 04/18/2025 2:40 PM EST [facility] [address] [place] [address] Anne-Marie Kolb, BROKER ASSISTANT 2[address] [facility] [address] [place] [address] documented as of this encounter [...] documented as of this encounter Care Teams Pathology Supervisor Relationship Specialty Start Date End Date Pcp, No [address] [place] [address] PCP - General Family Medicine 11/21/23 12/06/24 Alisa Kunz DO [address] [place] [phone] Internal Medicine 11/21/23 Kodi Bustos DO [address] [address] Surgeon Cardiothoracic Surgery 11/06/22 Sujit Arriola MD [address] [place] [address] Consulting Physician Pulmonary Disease 11/06/22 Sujit Reyes MD [address] [place] [address] Referring Physician 12/04/22 Zee Lazar DO [address] [place] [address] Resident 09/08/24 documented as of this encounter
--- OUTSIDE RECORDS SUMMARY | 2025-01-05 15:51 | XMS_ITS | Encounter Summary ---
Author Organization [facility] Address [address] [place] [address] Care Team Providers Care Inspector Name Role Phone Pcp, No Primary Care Provider Unavailabl e Alisa Kunz DO Unavailable [phone] Kodi Bustos DO Unavailable [phone] Sujit Arriola MD Unavailable [phone] Sujit Reyes MD Unavailable [phone] Zee Lazar DO Unavailable [phone] Encounter Details Date Type Department Care Team (Latest Contact Info) Description 11/25/2024 Travel Social History Tobacco Use Types Packs/Day [...] Questionnaire-2 Score 0 10/27/2024 [facility] - Occupational Stress Questionnaire Answer [...] in a care home (including now)? No 11/22/2024 [facility] Utilities Answer Date Recorded In the [...] drink first t anselmo in the morning (EYE-CREMATORY ATTENDANT) to steady your nerves or to [...] Date of Assessment Author No Risk Indicated 11/25/2024 8:00 AM EDT Genny Whitehead lt, RN * Question Answer Date of Assessment Author 1. Wish to be (Past 1 Month) No 11/25/2024 8:00 AM EDT Rosas Landa, EVITA 2. Non-Specific Active Suicidal Thoughts (Past 1 Month) No 11/25/2024 8:00 AM EDT Rosas Landa RN 6. Suicidal Behavior (Lifetime) No 11/25/2024 8:00 AM EDT Rosas Landa RN documented as of this encounter Plan of Treatment Upcoming Encounters Date Type Department Care Team (Late st Contact Info) Description 01/06/2025 2:00 PM EDT Office Visit [facility] Medicine Specialties [address], 2nd [place] [address] Lavern Shoemaker MD [address] [place] [phone] 01/12/2025 1:10 PM EST Office Visit [facility] Medicine Specialties [address], [address]nd [place] [address] Noris Yee MD [address] [place] [address] 01/12/2025 2:00 PM EST Office Visit [facility] [address], [address] [place] [address] Ezra Fine MD [address] [place] [address] 01/27/2025 10:00 AM EST Office Visit [facility] [address], 1st [place] [address] Sujit Cole, YAMILET [address] [place] [address] 02/02/2025 8:40 AM EST Office Visit [facility] Internal Medicine [address], 3rd [place] [address] Alisa Kunz DO [address] [place] [address] 02/09/2025 12:20 PM EST Office Visit [facility] Endocrinology [address] [place] [address] Anne-Marie Kolb, INDUSTRIAL ANALYST 2[address] [facility] 125 [place] [address] 04/18/2025 2:40 PM EST Office Visit [facility] Endocrinology [address] [place] [address] Anne-Marie Kolb, INDUSTRIAL ANALYST 2[address] [facility] 125 [place] [address] documented as of this encounter [...] documented as of this encounter Care Teams Inspector Relationship Specialty Start Date End Date Pcp, [place] [address] PCP - General Family Medicine 11/21/23 12/06/24 Alisa Kunz DO [address] [place] [address] Internal Medicine 11/21/23 Kodi Bustos DO [address] [address] Surgeon Cardiothoracic Surgery 11/06/22 Sujit Arriola MD [address] [place] [address] Consulting Physician Pulmonary Disease 11/06/22 Sujit Reyes MD [address] [place] [address] Referring Physician 12/04/22 Zee Lazar DO [address] [place] [address] Resident 09/08/24 documented as of this encounter
--- OUTSIDE RECORDS SUMMARY | 2025-01-05 15:51 | XMS_ITS | Encounter Summary ---
Author Organization [facility] Address [address] [place] [address] Care Team Providers Care Equal Opportunity Director Name Role Phone Pcp, No Primary Care Provider Unavailabl e Alisa Kunz DO Unavailable [phone] Kodi Bustos DO Unavailable [phone] Sujit Arriola MD Unavailable [phone] Sujit Reyes MD Unavailable [phone] Zee Lazar DO Unavailable [phone] Reason for Visit * Reason Comments Med Refill Encounter Details Date Type Department Care Team (Late st Contact Info) Description 11/16/2024 [facility] Medicine Specialties [address], [address]nd [place] [address] Noris Yee MD [address] [place] [address] Systemic lupus erythematosus (SLE) in [...] Recorded Patient Health Questionnaire-2 Score 0 10/27/2024 [facility] - Occupational Stress Questionnaire Answer Date [...] first t anselmo in the morning (EYE-DIRECTOR OPERATING ROOM) to steady your nerves or to get [...] Miscellaneous Notes * Progress Notes - Kayla Ceja PharmD - 11/19/2024 11:27 AM EDT 1 medication(s) has been denied per protocol due to: Patient needs appointment * Telephone Encounter - Dara Quiroz - 11/19/2024 11:06 AM EDT [facility] Reach out to Dara or Dinah for assistance documented in this encounter Plan of Treatment Upcoming Encounters Date Type Department Care Team (Late st Contact Info) Description 01/06/2025 2:00 PM EDT Office Visit [facility] Medicine Specialties [address], 2nd [place] [address] Lavern Shoemaker MD [address] [place] [address] 01/12/2025 1:10 PM EST Office Visit [facility] Medicine Specialties [address], 2nd [place] [address] Noris Yee MD [address] [place] [address] 01/12/2025 2:00 PM EST Office Visit [facility] [address], [address] [place] [address] Ezra Fine MD [address] [place] [phone] 01/27/2025 10:00 AM EST Office Visit [facility] [address], 1st [place] [address] Sujit Cole, POSITIVE PRINTER OPERATOR [address] [place] [address] 02/02/2025 8:40 AM EST [facility] Internal Medicine [address], 3rd [place] [address] Ailsa Kunz L, DO [address] [place] [address] 02/09/2025 12:20 PM EST Office Visit [facility] Endocrinology [address] [place] [address] Anne-Marie Kolb, POSITIVE PRINTER OPERATOR 2[address] [facility] 125 [place] [address] 04/18/2025 2:40 PM EST Office Visit [facility] Endocrinology [address] [place] [address] Anne-Marie Kolb, POSITIVE PRINTER OPERATOR 2[address] [facility] 125 [place] [address] documented as of this encounter Visit Diagnoses Diagnosis Systemic lupus erythematosus (SLE) in adult ([facility]) documented in this encounter Additional Health Concerns Assessment Noted Time PHQ-9 Depression Total Score: 0 09/09/19 11:19 AM EDT A fall risk assessment has been complete d for the patient 11/15/2024 3:19 PM EDT A Body Mass Index follow-up plan has been documented for the patient 11/18/2024 9:24 AM EDT documented as of this encounter Care Teams Equal Opportunity Director Relationship Specialty Start Date End Date Pcp, No [address] [place] [address] PCP - General Family Medicine 11/21/23 12/06/24 Alisa Kunz DO [address] [place] [address] Internal Medicine 11/21/23 Kodi Bustos DO [address] [address] Surgeon Cardiothoracic Surgery 11/06/22 Sujit Arriola MD [address] [place] [address] Consulting Physician Pulmonary Disease 11/06/22 Sujit Reyes MD [address] [place] [address] Referring Physician 12/04/22 Zee Lazar DO [address] [place] [address] Resident 09/08/24 documented as of this encounter
--- OUTSIDE RECORDS SUMMARY | 2025-01-05 15:51 | XMS_ITS | Encounter Summary ---
Author Organization [facility] Address [address] [place] [address] Care Team Providers Care Oiling Machine Operator Name Role Phone Pcp, No Primary Care Provider Unavailabl e Alisa Kunz DO Unavailable [phone] Kodi Bustos DO Unavailable [phone] Sujit Arriola MD Unavailable [phone] Sujit Reyes MD Unavailable [phone] Zee Lazar DO Unavailable [phone] Encounter Details Date Type Department Care Team (Latest Contact Info) Description 11/22/2024 Travel Social History Tobacco Use Types Packs/Day [...] Recorded Patient Health Questionnaire-2 Score 0 10/27/2024 [facility] - Occupational Stress Questionnaire Answer Date Recorded [...] in a mcfp (including now)? No 11/22/2024 [facility] Utilities Answer Date Recorded In [...] drink first t anselmo in the morning (EYE-COTTON BALL MACHINE TENDER) to steady your nerves or [...] Description 01/06/2025 2:00 PM EDT Office Visit [facility] Medicine Specialties [address], 2nd [place] [address] Lavern Shoemaker MD [address] [place], [place] [phone] 01/12/2025 1:10 PM EST Office Visit [facility] Medicine Specialties [address], 2[address] [place] [address] Noris Yee MD [address] [place] [address] 01/12/2025 2:00 PM EST Office Visit [facility] [address] [place] [address] Ezra Fine MD [address] [place] [address] 01/27/2025 10:00 AM EST Office Visit [facility] [address], 1st [place] [address] Sujit Cole, SOFTWARE TEST AUTOMATION ENGINEER [address] [place] [address] 02/02/2025 8:40 AM EST Office Visit [facility] Internal Medicine [address], 3rd [place] [address] Alisa Kunz, [address] [place] [address] 02/09/2025 12:20 PM EST Office Visit [facility] Endocrinology [address] [place] [address] Anne-Marie Kolb, SOFTWARE TEST AUTOMATION ENGINEER [address] [place] [address] 04/18/2025 2:40 PM EST [facility] [address] [place] [address] Anne-Marie Kolb, SOFTWARE TEST AUTOMATION ENGINEER 2[address] [facility] [address] [place] [address] documented as of this encounter [...] documented as of this encounter Care Teams Oiling Machine Operator Relationship Specialty Start Date End Date Pcp, No [address] [place] [address] PCP - General Family Medicine 11/21/23 12/06/24 Alisa Kunz DO [address] [place] [phone] Internal Medicine 11/21/23 Kodi Bustos DO [address] [address] Surgeon Cardiothoracic Surgery 11/06/22 Sujit Arriola MD [address] [place] [address] Consulting Physician Pulmonary Disease 11/06/22 Sujit Reyes MD [address] [place] [address] Referring Physician 12/04/22 Zee Lazar DO [address] [place] [address] Resident 09/08/24 documented as of this encounter
--- OUTSIDE RECORDS SUMMARY | 2025-01-05 15:51 | XMS_ITS | Encounter Summary ---
Author Organization [facility] Address [address] [place] [address] Care Team Providers Care Cable Installation Manager Name Role Phone Alisa Kunz DO Unavailable [phone] Kodi Bustos DO Unavailable [phone] Sujit Arriola MD Unavailable [phone] Sujit Reyes MD Unavailable [phone] Zee Lazar DO Unavailable [phone] Alisa Kunz DO Primary Care Provider [phone] Milli KELLEY RN, Fili Noonan Unavailable [phone] Encounter Details Date Type Department Care Team (Late st Contact Info) Description 12/08/2024 Results Follow-Up [facility] Internal Medicine [address], 3rd [place] [address] Alisa Kunz DO [address] [place] [address] Social History Tobacco Use Types [...] Recorded Patient Health Questionnaire-2 Score 0 10/27/2024 [facility] - Occupational [facility] Questionnaire Answer Date [...] living in a alf (including now)? No 11/22/2024 [facility] Utilities Answer Date Recorded In the past 12 months has [employer], [employer], oil, or water [employer] threatened to shut off services in your [...] drink first t anselmo in the morning (EYE-SIGNAL SYSTEM TESTING MAINTAINER) to steady your nerves or to get [...] Description 01/06/2025 2:00 PM EDT Office Visit [facility] Medicine Specialties [address], 2nd [place] [address] Lavern Shoemaker MD [address] [place], [place] [phone] 01/12/2025 1:10 PM EST Office Visit [facility] Medicine Specialties [address], [address]nd [place] [address] Noris Yee MD [address] [facility] [address] [place] [address] 01/12/2025 2:00 PM EST Office Visit [facility] [address] [place] [address] Ezra Fine MD [address] [place] [address] 01/27/2025 10:00 AM EST Office Visit [facility] [address], [address] [place] [address] Sujit Cole, RAPID EXTRACTOR OPERATOR [address] [place] [address] 02/02/2025 8:40 AM EST Office Visit [facility] Internal Medicine [address], 3rd [place] [address] Alisa Kunz DO [address] [place] [address] 02/09/2025 12:20 PM EST Office Visit [facility] Endocrinology [address] [place] [address] Anne-Marie Kolb, RAPID EXTRACTOR OPERATOR 2194 [facility] 125 [place] [address] 04/18/2025 2:40 PM EST Office Visit [facility] Endocrinology [address] [place] [address] Anne-Marie Kolb, RAPID EXTRACTOR OPERATOR [address] [address] documented as of this encounter [...] as of this encounter Care Teams Cable Installation Manager Relationship Specialty Start Date End Date Alisa Kunz DO [address] [place] [address] PCP - General Internal Medicine 12/07/24 Alisa Kunz DO [address] [place] [address] Internal Medicine 11/21/23 Kodi Bustos DO [address] [phone] Surgeon Cardiothoracic Surgery 11/06/22 Sujit Arriola MD [address] [place] [address] Consulting Physician Pulmonary Disease 11/06/22 Sujit Reyes MD [address] [place] [address] Referring Physician 12/04/22 Zee Lazar DO [address] [place] [address] Resident 09/08/24 Fili Morley III, RN 2[address] [facility], [address] [place] [address] Operations And Maintenance Technican 12/22/24 01/05/25 documented as of this encounter
--- OUTSIDE RECORDS SUMMARY | 2025-01-05 15:51 | XMS_ITS | Encounter Summary ---
Author Organization [facility] Address [address] [place] [address] Care Team Providers Care Jacquard Loom Weaver Name Role Phone Pcp, No Primary Care Provider Unavailabl e Alisa Kunz DO Unavailable [phone] Kodi Bustos DO Unavailable [phone] Sujit Arriola MD Unavailable [phone] Sujit Reyes MD Unavailable [phone] Zee Lazar DO Unavailable [phone] Encounter Details Date Type Department Care Team (Latest Contact Info) Description 11/21/2024 Travel Social History Tobacco Use Types Packs/Day [...] Patient Health Questionnaire-2 Score 0 10/27/2024 [facility] - Occupational Stress Questionnaire Answer [...] living in a retirement (including now)? No 11/22/2024 [facility] Utilities Answer Date Recorded In the [...] drink first t anselmo in the morning (EYE-WALKING DRAGLINE OILER) to steady your nerves or to get [...] Description 01/06/2025 2:00 PM EDT Office Visit [facility] Medicine Specialties [address] [place] [address] Lavern Shoemaker MD [address] [place], [place] [id number] 01/12/2025 1:10 PM EST Office Visit [facility] Medicine Specialties [address], [address] [place] [address] Noris Yee MD [address] [place] [address] 01/12/2025 2:00 PM EST Office Visit [facility] [address] [place] [address] Ezra Fine MD [address] [place] [address] 01/27/2025 10:00 AM EST Office Visit [facility] [address], 1st [place] [address] Sujit Cole, POWDER BLENDER [address] [place] [address] 02/02/2025 8:40 AM EST Office Visit [facility] Internal Medicine [address], 3rd [place] [address] Alisa Kunz, [address] [place] [address] 02/09/2025 12:20 PM EST Office Visit [facility] Endocrinology [address] [place] [address] Anne-Marie Kolb, POWDER BLENDER [address] [place] [address] 04/18/2025 2:40 PM EST [facility] [address] [place] [address] Anne-Marie Kolb, POWDER BLENDER 2[address] [facility] [address] [place] [address] documented as of this encounter [...] documented as of this encounter Care Teams Jacquard Loom Weaver Relationship Specialty Start Date End Date Pcp, No 800 [place] [address] PCP - General Family Medicine 11/21/23 12/06/24 Alisa Kunz DO [address] [place] [phone] Internal Medicine 11/21/23 Kodi Bustos DO [address] [address] Surgeon Cardiothoracic Surgery 11/06/22 Sujit Arriola MD [address] [place] [address] Consulting Physician Pulmonary Disease 11/06/22 Sujit Reyes MD [address] [place] [address] Referring Physician 12/04/22 Zee Lazar DO [address] [place] [address] Resident 09/08/24 documented as of this encounter
--- OUTSIDE RECORDS SUMMARY | 2025-01-05 15:51 | XMS_ITS | Encounter Summary ---
Author Organization [facility] Address [address] [place] [address] Care Team Providers Care Truss Assembler Name Role Phone Alisa Kunz DO Unavailable [phone] Kodi Bustos DO Unavailable [phone] Sujit Arriola MD Unavailable [phone] Sujit Reyes MD Unavailable [phone] Zee Lazar DO Unavailable [phone] Alisa Kunz DO Primary Care Provider [phone] Reason for Visit * Reason Onset Date Comments HCN - Patient Message 12/17/2024 Encounter Details Date Type Department Care Team (Late st Contact Info) Description 12/17/2024 Telephone [facility] Internal Medicine [address], 3rd [place] [address] Alisa Kunz DO [address] [place] [address] HCN - Patient Message Social [...] Health Questionnaire-2 Score 0 10/27/2024 [facility] Orthopedic [...] living in a prison (including now)? No 11/22/2024 [facility] Utilities Answer Date Recorded In the past 12 months has [employer], [employer], oil, or water [employer] threatened to shut off services in [...] drink first t anselmo in the morning (EYE-CHEMICAL DEPENDENCY COUNSELOR) to steady your nerves or to [...] * Telephone Encounter - Shannen Stephens - 12/17/2024 1:16 PM EDT Called and gave vo * Telephone Encounter - Enedina Selby - 12/17/2024 12:22 PM EDT Clinical Concern/Question Reason for Call: Cece /Caretenders calling to get a verbal for start of care for assisted, OT ad PT. Please advise Thanks Best contact number: Other: [phone] Optimal time of day to reach caller: [...] Description 01/06/2025 2:00 PM EDT Office Visit [facility] Medicine Specialties [address], 2nd [place] [address] Lavern Shoemaker MD [address] [place] [address] 01/12/2025 1:10 PM EST Office Visit [facility] Medicine Specialties [address], 2nd [place] [address] Noris Yee MD [address] [place] [address] 01/12/2025 2:00 PM EST Office Visit [facility] [address] [place] [address] Ezra Fine MD [address] [place] [address] 01/27/2025 10:00 AM EST Office Visit [facility] [address], 1st [place] [address] Sujit Cole, CORRESPONDENCE REVIEW CLERK [address] [place] [address] 02/02/2025 8:40 AM EST Office Visit [facility] Internal Medicine [address], [address]rd [place] [address] Alisa Kunz, DO [address] [place] [address] 02/09/2025 12:20 PM EST Office Visit [facility] Endocrinology [address] [place] [address] Anne-Marie Kolb, CORRESPONDENCE REVIEW CLERK [address] [place] [address] 04/18/2025 2:40 PM EST Office Visit [facility] Endocrinology [address] [place] [address] Cortes Anne-Marie L, CORRESPONDENCE REVIEW CLERK [address] [place] [address] documented as of this encounter [...] documented as of this encounter Care Teams Truss Assembler Relationship Specialty Start Date End Date Alisa Kunz DO [address] [place] [address] PCP - General Internal Medicine 12/07/24 Alisa Kunz DO [address] [place] [address] Internal Medicine 11/21/23 Kodi Bustos DO [address] [place] [phone] Surgeon Cardiothoracic Surgery 11/06/22 Sujit Arriola MD [address] [place] [address] Consulting Physician Pulmonary Disease 11/06/22 Sujit Reyes MD [address] [place] [address] Referring Physician 12/04/22 Zee Lazar DO [address] [place] [address] [id number] Resident 09/08/24 documented as of this encounter
--- OUTSIDE RECORDS SUMMARY | 2025-01-05 15:51 | XMS_ITS | Encounter Summary ---
Author Organization [facility] Address [address] [place] [address] Care Team Providers Care Tallow Refiner Name Role Phone Pcp, No Primary Care Provider Unavailabl e Alisa Kunz DO Unavailable [phone] Kodi Bustos DO Unavailable [phone] Sujit Arriola MD Unavailable [phone] Sujit Reyes MD Unavailable [phone] Zee Lazar DO Unavailable [phone] Alisa Kunz DO Primary Care Provider [phone] Milli KELLEY RN, Fili Noonan Unavailable [phone] Encounter Details Date Type Department Care Team (Late st Contact Info) Description 11/27/2024 Results Follow-Up ICU PHARMACY [address] [place] [address] Bonny Cacnino, PharmD Social History Tobacco Use Types Packs/Day Years [...] you attend [facility] or sabianist services? 1 to 4 [...] Recorded Patient Health Questionnaire-2 Score 0 10/27/2024 [facility] [place] of Occupat ional Health - Occupational Stress [...] living in a custodial (including now)? No 11/22/2024 [facility] Utilities Answer Date Recorded In the [...] drink first t anselmo in the morning (EYE-AMMUNITION STORAGE SUPERINTENDENT) to steady your nerves or to get [...] Tidwell RN documented as of this encounter Plan of Treatment Upcoming Encounters Date Type Department Care Team (Late st Contact Info) Description 01/06/2025 2:00 PM EDT Office Visit [facility] Medicine Specialties [address], 2nd [place] [address] Lavern Shoemaker MD [address] [place], [place] [id number] 01/12/2025 1:10 PM EST Office Visit [facility] Medicine Specialties [address], 2nd [place] [address] Noris Yee MD [address] [place] [address] 01/12/2025 2:00 PM EST Office Visit [facility] [address] [place] [address] Ezra Fine MD [address] [place] [address] 01/27/2025 10:00 AM EST Office Visit [place] [facility] [address], 1st [place] [address] Sujit Cole, INTERNET MARKETER [address] [place] [address] 02/02/2025 8:40 AM EST Office Visit [facility] Internal Medicine [address], 3rd [place] [address] Alisa Kunz DO [address] [place] [address] 02/09/2025 12:20 PM EST Office Visit [facility] Endocrinology [address] [place] [address] Anne-Marie Kolb, INTERNET MARKETER 2[address] [facility] 125 [place] [address] 04/18/2025 2:40 PM EST Office Visit [facility] Endocrinology [address] [place] [address] Anne-Marie Kolb, INTERNET MARKETER 2[address] [facility] 125 [place] [address] documented as of this encounter [...] documented as of this encounter Care Teams Tallow Refiner Relationship Specialty Start Date End Date Pcp, Heather [address] [place] [address] PCP - General Family Medicine 11/21/23 12/06/24 Alisa Kunz DO [address] [place] [address] PCP - General Internal Medicine 12/07/24 Alisa Kunz DO [address] [place] [address] Internal Medicine 11/21/23 Kodi Bustos DO [address] [place] [address] Surgeon Cardiothoracic Surgery 11/06/22 Sujit Arriola MD [address] [place] [address] Consulting Physician Pulmonary Disease 11/06/22 Sujit Reyes MD [address] [place] [address] Referring Physician 12/04/22 Zee Lazar DO [address] [place], [place] [phone] Resident 09/08/24 Fili Morley III, RN [address] [facility], [address] [place], [place] [id number] Manufacturing Engineering Manager 12/22/24 01/05/25 documented as of this encounter
--- OUTSIDE RECORDS SUMMARY | 2025-01-05 15:51 | XMS_ITS | Encounter Summary ---
Author Organization [facility] Address [address] [place] [address] Care Team Providers Care Forest Economist Name Role Phone Pcp, No Primary Care Provider Unavailabl e Alisa Kunz DO Unavailable [phone] Kodi Bustos DO Unavailable [phone] Sujit Arriola MD Unavailable [phone] Sujit Reyes MD Unavailable [phone] Zee Lazar DO Unavailable [phone] Reason for Visit * Reason Comments Med Refill Encounter Details Date Type Department Care Team (Late st Contact Info) Description 11/17/2024 Refill [facility] Internal Medicine [address], 3rd [place] [address] Alisa Kunz DO [address] [place] [address] Social History Tobacco Use Types [...] Recorded Patient Health Questionnaire-2 Score 0 10/27/2024 [facility] of Occupat ional Health - Occupational [...] any time in the past 12 m [facility], were you homeless or living in [...] drink first t anselmo in the morning (EYE-ZIPPER REPAIRER) to steady your nerves or to get rid of a hangover? 0 08/14/2024 CAGE Questionnaire Score 0 025 Utilities Answer Date Recorded In the past 12 months has th e electric, gas, oil, or water [employer] threatened to shut off services in your [...] Miscellaneous Notes * Telephone Encounter - Lavern Russell, PharmD - 11/19/2024 11:36 AM EDT 1 medication(s) has been approved per protocol. Please keep upcoming appointment 12/06/24 for additional refills. Medications have been pended for refill at upcoming appointment. documented in this encounter Plan of Treatment Upcoming Encounters Date Type Department Care Team (Late st Contact Info) Description 01/06/2025 2:00 PM EDT Office Visit [facility] Medicine Specialties [address], [address]nd [place] [address] Lavern Shoemaker MD [address] [place] [address] 01/12/2025 1:10 PM EST Office Visit [facility] Medicine Specialties [address], 2nd [place] [address] Noris Yee MD [address] [place] [address] 01/12/2025 2:00 PM EST Office Visit [facility] [address], [address] [place] [address] Ezra Fine MD [address] [place] [address] 01/27/2025 10:00 AM EST Office Visit [place] [facility] [address], 1st [place] [address] Sujit Cole, RECEPTIONIST AIRLINE LOUNGE [address] [place] [address] 02/02/2025 8:40 AM EST Office Visit [facility] Internal Medicine [address], 3rd [place] [address] Alisa Kunz, DO [address] [place] [address] 02/09/2025 12:20 PM EST Office Visit [facility] Endocrinology [address] [place] [address] Anne-Marie Kolb, RECEPTIONIST AIRLINE LOUNGE 2[address] [facility] 125 [place] [address] 04/18/2025 2:40 PM EST Office Visit [facility] Endocrinology [address] [place] [address] Anne-Marie Kolb, RECEPTIONIST AIRLINE LOUNGE 2[address] [facility] 125 [place] [address] documented as of this encounter [...] documented as of this encounter Care Teams Forest Economist Relationship Specialty Start Date End Date Pcp, [place] [address] PCP - General Family Medicine 11/21/23 12/06/24 Alisa Kunz DO [address] [place] [address] Internal Medicine 11/21/23 Kodi Bustos DO [address] [address] Surgeon Cardiothoracic Surgery 11/06/22 Sujit Arriola MD [address] [place] [address] Consulting Physician Pulmonary Disease 11/06/22 Sujit Reyes MD [address] [place] [address] Referring Physician 12/04/22 Zee Lazar DO [address] [place], [place] [phone] Resident 09/08/24 documented as of this encounter
--- OUTSIDE RECORDS SUMMARY | 2025-01-05 15:51 | XMS_ITS | Encounter Summary ---
Author Organization [facility] Address [address] [place] [address] Care Team Providers Care Glost Tile Shader Name Role Phone Pcp, No Primary Care Provider Unavailabl e Alisa Kunz DO Unavailable [phone] Kodi Bustos DO Unavailable [phone] Sujit Arriola MD Unavailable [phone] Sujit Reyes MD Unavailable [phone] Zee Lazar DO Unavailable [phone] Encounter Details Date Type Department Care Team (Latest Contact Info) Description 11/20/2024 Travel Social History Tobacco Use Types Packs/Day [...] Recorded Patient Health Questionnaire-2 Score 0 10/27/2024 [facility] - Occupational Stress Questionnaire Answer Date [...] drink first t anselmo in the morning (EYE-OCCUPANCY SPECIALIST) to steady your nerves or to get rid of a hangover? 0 08/14/2024 CAGE Questionnaire Score 0 025 Utilities Answer Date Recorded In the past 12 months has th e [employer], gas, oil, or water company threatened to [...] Date of Assessment Author No Risk Indicated 11/20/2024 12:56 PM EDT Jey Philip RN * Question Answer Date of Assessment Author 1. Wish to be (Past 1 Month) No 11/20/2024 12:56 PM EDT Abebe Matta, EVITA 2. Non-Specific Active Suicidal Thoughts (Past 1 Month) No 11/20/2024 12:56 PM EDT Abebe Matta, EVITA 6. Suicidal Behavior (Lifetime) No 11/20/2024 12:56 PM EDT Abebe Matta RN documented as of this encounter Plan of Treatment Upcoming Encounters Date Type Department Care Team (Late st Contact Info) Description 01/06/2025 2:00 PM EDT Office Visit [facility] Medicine Specialties [address], [address]nd [place] [address] Lavern Shoemaker MD [address] [place] [id number] 01/12/2025 1:10 PM EST Office Visit [facility] Specialties [address], [address]nd [place] [address] Noris Yee MD [address] [place] [address] 01/12/2025 2:00 PM EST Office Visit [facility] [address] [place] [address] Ezra Fine MD [address] [place] [address] 01/27/2025 10:00 AM EST Office Visit [facility] [address], [address]st [place] [address] Sujit Cole, DIGITAL ACCOUNT SUPERVISOR [address] [place] [address] 02/02/2025 8:40 AM EST Office Visit [facility] Internal Medicine [address], 3rd [place] [address] Alisa Kunz DO [address] [place] [address] 02/09/2025 12:20 PM EST Office Visit [facility] Endocrinology [address] [place] [address] Anne-Marie Kolb, DIGITAL ACCOUNT SUPERVISOR 2194 [facility] 125 [place] [address] 04/18/2025 2:40 PM EST Office Visit [facility] Endocrinology [address] [place] [address] Anne-Marie Kolb, DIGITAL ACCOUNT SUPERVISOR [address] [address] documented as of this encounter [...] documented as of this encounter Care Teams Glost Tile Shader Relationship Specialty Start Date End Date Pcp, No [address] [place] [address] PCP - General Family Medicine 11/21/23 12/06/24 Alisa Kunz DO [address] [place] [address] Internal Medicine 11/21/23 Kodi Bustos, [address] [address] Surgeon Cardiothoracic Surgery 11/06/22 Sujit Arriola MD [address] [place] [address] Consulting Physician Pulmonary Disease 11/06/22 Sujit Reyes MD [address] [place] [address] Referring Physician 12/04/22 Zee Lazar DO [address] [place] [id number] Resident 09/08/24 documented as of this encounter
--- OUTSIDE RECORDS SUMMARY | 2025-01-05 15:51 | XMS_ITS | Encounter Summary ---
Author Organization [facility] Address [address] [place] [address] Care Team Providers Care Hide House Supervisor Name Role Phone Pcp, No Primary Care Provider Unavailabl e Alisa Kunz DO Unavailable [phone] Kodi Bustos DO Unavailable [phone] Sujit Arriola MD Unavailable [phone] Sujit Reyes MD Unavailable [phone] Zee Lazar DO Unavailable [phone] Encounter Details Date Type Department Care Team (Latest Contact Info) Description 11/24/2024 Travel Social History Tobacco Use Types Packs/Day [...] Patient Health Questionnaire-2 Score 0 10/27/2024 [facility] - Occupational Stress Questionnaire Answer [...] in a fpc (including now)? No 11/22/2024 [facility] Utilities Answer Date Recorded In [...] drink first t anselmo in the morning (EYE-SPICE MILLER) to steady your nerves or to get [...] Description 01/06/2025 2:00 PM EDT Office Visit [facility] Medicine Specialties [address], [address]nd [place] [address] Lavern Shoemaker MD [address] [place], [place] [phone] 01/12/2025 1:10 PM EST Office Visit [facility] Medicine Specialties [address], [address] [place] [address] Noris Yee MD [address] [place] [address] 01/12/2025 2:00 PM EST Office Visit [facility] [address] [place] [address] Ezra Fine MD [address] [place] [address] 01/27/2025 10:00 AM EST Office Visit [facility] [address], 1st [place] [address] Sujit Cole, BASE MANAGER [address] [place] [address] 02/02/2025 8:40 AM EST Office Visit [facility] Internal Medicine [address], 3rd [place] [address] Alisa Kunz, [address] [place] [address] 02/09/2025 12:20 PM EST [facility] [address] [place] [address] Anne-Marie Kolb, BASE MANAGER [address] [place] [address] 04/18/2025 2:40 PM EST [facility] [address] [place] [address] Anne-Marie Kolb, BASE MANAGER [address] [facility] [address] [place] [address] documented as of this encounter [...] documented as of this encounter Care Teams Hide House Supervisor Relationship Specialty Start Date End Date Pcp, No [address] [place] [address] PCP - General Family Medicine 11/21/23 12/06/24 Alisa Kunz DO [address] [place] [address] Internal Medicine 11/21/23 Kodi Bustos DO [address] [address] Surgeon Cardiothoracic Surgery 11/06/22 Sujit Arriola MD [address] [place] [address] Consulting Physician Pulmonary Disease 11/06/22 Sujit Reyes MD [address] [place] [address] Referring Physician 12/04/22 Zee Lazar DO [address] [place] [address] Resident 09/08/24 documented as of this encounter
--- OUTSIDE RECORDS SUMMARY | 2025-01-05 15:52 | XMS_ITS | Encounter Summary ---
Author Organization [facility] Address [address] [place] [address] Care Team Providers Care Production Machine Computer Operator Name Role Phone Pcp, No Primary Care Provider Unavailabl e Alisa Kunz DO Unavailable [phone] Kodi Bustos DO Unavailable [phone] Sujit Arriola MD Unavailable [phone] Sujit Reyes MD Unavailable [phone] Zee Lazar DO Unavailable [phone] Encounter Details Date Type Department Care Team (Latest Contact Info) Description 12/06/2024 Travel Social History Tobacco Use Types Packs/Day [...] Recorded Patient Health Questionnaire-2 Score 0 10/27/2024 [facility] - Occupational Stress Questionnaire Answer Date [...] living in a m[facility] (including now)? No 11/22/2024 [facility] Utilities Answer Date Recorded In the [...] drink first t anselmo in the morning (EYE-RETURNED GOODS SORTER) to steady your nerves or to get [...] Allison Hartley documented as of this encounter Plan of Treatment Upcoming Encounters Date Type Department Care Team (Late st Contact Info) Description 01/06/2025 2:00 PM EDT Office Visit [facility] Medicine Specialties [address], [address] [place] [address] Lavern Shoemaker MD [address] [place] [address] 01/12/2025 1:10 PM EST Office Visit [facility] Medicine Specialties [address], [address] [place] [address] Noris Yee MD [address] [facility] [address] [place] [address] 01/12/2025 2:00 PM EST Office Visit [facility] [address] [place] [address] Ezra Fine MD [address] [place] [address] 01/27/2025 10:00 AM EST Office Visit [facility] [address], 1st [place] [address] Sujit Cole, REFINERY OPERATOR HELPER CRUDE UNIT [address] [place] [address] 02/02/2025 8:40 AM EST Office Visit [facility] Internal Medicine [address], 3rd [place] [address] Alisa Kunz DO [address] [place] [address] 02/09/2025 12:20 PM EST Office Visit [facility] Endocrinology [address] [place] [address] Anne-Marie Kolb, REFINERY OPERATOR HELPER CRUDE UNIT 2[address] [facility] 125 [place] [address] 04/18/2025 2:40 PM EST Office Visit [facility] Endocrinology [address] [place] [address] Anne-Marie Kolb, REFINERY OPERATOR HELPER CRUDE UNIT 2[address] [facility] 125 [place] [address] documented as of this encounter [...] documented as of this encounter Care Teams Production Machine Computer Operator Relationship Specialty Start Date End Date Pcp, [place] [address] PCP - General Family Medicine 11/21/23 12/06/24 Alisa Kunz DO [address] [place] [address] Internal Medicine 11/21/23 Kodi Bustos DO [address] [phone] Surgeon Cardiothoracic Surgery 11/06/22 Sujit Arriola MD [address] [place] [address] Consulting Physician Pulmonary Disease 11/06/22 Sujit Reyes MD [address] [place] [address] Referring Physician 12/04/22 Zee Lazar DO [address] [place] [address] Resident 09/08/24 documented as of this encounter
--- OUTSIDE RECORDS SUMMARY | 2025-01-05 15:52 | XMS_ITS | Encounter Summary ---
Author Organization [facility] Address [address] [place] [address] Care Team Providers Care Railroad Dispatcher Name Role Phone Pcp, No Primary Care Provider Unavailabl e Alisa Kunz DO Unavailable [phone] Kodi Bustos DO Unavailable [phone] Sujit Arriola MD Unavailable [phone] Sujit Reyes MD Unavailable [phone] Zee Lazar DO Unavailable Reason for Visit * Reason Onset Date Comments HCN Clinical Concern/Question 12/06/2024 Encounter Details Date Type Department Care Team (Late st Contact Info) Description 12/06/2024 Telephone [facility] Internal Medicine [address], [address]rd [place] [address] Alisa Kunz DO [address] [place] [address] HCN Clinical Concern/Question Social History [...] Recorded Patient Health Questionnaire-2 Score 0 10/27/2024 [facility] - Occupational Stress Questionnaire Answer [...] in a half-way (including now)? No 11/22/2024 [facility] Utilities Answer Date Recorded In the past 12 months has e [employer], gas, oil, or water company threatened to [...] first t anselmo in the morning (EYE-CHIEF PROJECTIONIST) to steady your nerves or to get [...] Risk Indicated 12/06/2024 11:25 AM EDT Allison Hartely * Question Answer Date of Assessment Author 1. Wish to be (Past 1 Month) No 025 11:25 AM EDT Allison Hartley 2. Non-Specific Active Suici dillon Thoughts (Past 1 Month) No 12/06/2024 11:25 AM EDT Rod Hartley 6. Suicidal Behavior (Lifetime) No 11:25 AM EDT Allison Hartley documented as of this encounter Miscellaneous Notes * Telephone Encounter - Shannen Stephens - 12/06/2024 1:21 PM EDT noted * Telephone Encounter - Alisa Kunz DO - 12/06/2024 1:10 PM EDT Vascular maybe about US? I did not call her. * Telephone Encounter - Lea Felipe - 12/06/2024 12:43 PM EDT Clinical Concern/Question Reason for Call: Returning MD call Best contact number: [phone] (mobile) Optimal time of day to reach [...] Visit [facility] Medicine Specialties [address] [place] [address] Lavern Shoemaker MD [address] [place] [id number] 01/12/2025 1:10 PM EST Office Visit [facility] [address], [address] [place] [address] Noris Yee MD [address] [place] [address] 01/12/2025 2:00 PM EST Office Visit [facility] [address], [address] [place] [address] Ezra Fine MD [address] [place] [address] 01/27/2025 10:00 AM EST Office Visit [facility] [address], [address] [place] [address] Sujit Cole APRN [address] [place] [address] 02/02/2025 8:40 AM EST Office Visit [facility] Internal Medicine [address], [address]rd [place] [address] Alisa Kunz DO [address] [place] [address] 02/09/2025 12:20 PM EST Office Visit [facility] Endocrinology [address] [place] [address] Anne-Marie Kolb, SIMULATION SOFTWARE ENGINEER [address] [facility] [address] [place] [address] 04/18/2025 2:40 PM EST Office Visit [facility] Endocrinology [address] [place] [address] Anne-Marie Kolb, SIMULATION SOFTWARE ENGINEER [address] [address] documented as of this encounter [...] as of this encounter Care Teams Railroad Dispatcher Relationship Specialty Start Date End Date Pcp, No [address] [place] [address] PCP - General Family Medicine 11/21/23 12/06/24 Alisa Kunz DO [address] [place] [address] Internal Medicine 11/21/23 Kodi Bustos DO [address] [address] Surgeon Cardiothoracic Surgery 11/06/22 Sujit Arriola MD [address] [place] [address] Consulting Physician Pulmonary Disease 11/06/22 Sujit Reyes MD [address] [place] [address] Referring Physician 12/04/22 Zee Lazar DO [address] [place] [address] Resident 09/08/24 documented as of this encounter
--- OUTSIDE RECORDS SUMMARY | 2025-01-05 15:53 | XMS_ITS | Encounter Summary ---
Author Organization [facility] Address [address] [place] [address] Care Team Providers Care Pin Ticket Machine Operator Name Role Phone Alisa Kunz DO Primary Care Provider [phone] Pcp, No Primary Care Provider Unavailabl e Alisa Kunz DO Unavailable [phone] Laura Albright ELECTRICAL PROJECT ENGINEER Unavailable Unavailable Balwinder Vale Unavailable Unavailable Kodi Bustos DO Unavailable [phone] Sujit Arriola MD Unavailable [phone] HatLaura navas ELECTRICAL PROJECT ENGINEER Unavailable Unavailable Sujit Reyes MD Unavailable [phone] Zully Caldwell ELECTRICAL PROJECT ENGINEER Unavailable Unavailable HatLaura navas ELECTRICAL PROJECT ENGINEER Unavailable Unavailable Laura Albright ELECTRICAL PROJECT ENGINEER Unavailable Unavailable Tanya Powell Unavailable [phone] Sarah Reyes ELECTRICAL PROJECT ENGINEER Unavailable Unavailable Ekaterina Gómez Unavailable Unavailable Zully Caldwell ELECTRICAL PROJECT ENGINEER Unavailable Unavailable Ekaterina Gómez Unavailable Unavailable Patricia Yañez ELECTRICAL PROJECT ENGINEER Unavailable Unavailab Zee Lr DO Unavailable [phone] Alisa Kunz DO Primary Care Provider [phone] Milli KELLEY RN, Fili Noonan Unavailable [phone] Reason for Visit * Reason Comments Med Refill Encounter Details Date Type Department Care Team (Late st Contact Info) Description 03/18/2022 Refill [facility] Internal Medicine [address], [address] [place] [address] Alisa Kunz DO [address] [place] [address] Social History Tobacco Use Types [...] Description 01/06/2025 2:00 PM EDT Office Visit [facility] Medicine Specialties [address] [place] [address] Lavern Shoemaker MD [address] [place], [place] [id number] 01/12/2025 1:10 PM EST Office Visit [facility] Medicine Specialties [address] [place] [address] Noris Yee MD [address] [place] [address] 01/12/2025 2:00 PM EST Office Visit [facility] [address] [place] [address] Ezra Fine MD [address] [place] [address] 01/27/2025 10:00 AM EST Office Visit [facility] [address] [place] [address] Sujit Cole, PILOT STEAM YACHT [address] [place] [address] 02/02/2025 8:40 AM EST Office Visit [facility] Internal Medicine [address], [address] [place] [address] Alisa Kunz, DO [address] [place] [address] 02/09/2025 12:20 PM EST [facility] End[facility]ology [address] [place] [address] Anne-Marie Kolb, PILOT STEAM YACHT [address] [place] [address] 04/18/2025 2:40 PM EST Office Visit [facility] Endocrinology [address] [place] [address] Anne-Marie Kolb, PILOT STEAM YACHT [address] [place] [address] documented as of this encounter [...] documented as of this encounter Care Teams Pin Ticket Machine Operator Relationship Specialty Start Date End Date Alisa Kunz DO [address] [place] [phone] PCP - General Internal Medicine 03/13/21 11/20/23 Pcp, No [address] [place] [address] PCP - General Family Medicine 11/21/23 12/06/24 Alisa Kunz DO [address] [place] [address] PCP - General Internal Medicine 12/07/24 Alisa Kunz DO [address] [place] [address] Internal Medicine 11/21/23 Laura Albright LPN VALUE-[employer]ED [place] [address] TCM Nurse 08/30/22 09/27/22 Balwinder Vale [address] [address] Community Health Worker Apprentice Technician 08/30/22 09/06/22 Kodi Bustos, DO [address] [address] Surgeon Cardiothoracic Surgery 11/06/22 Sujit Arriola MD [address] [place] [address] Consulting Physician Pulmonary Disease 11/06/22 Laura Albright LPN [employer] [place] [address] TCM Nurse 12/02/22 01/01/23 Sujit Reyes MD [address] [place] [address] Referring Physician 12/04/22 Zully Caldwell LPN VALUE-[employer] [place] [address] TCM Nurse 02/03/23 03/05/23 Laura Albright LPN VALUE-[employer] [place] [address] TCM Nurse 08/05/23 09/04/23 Laura Albright LPN VAL[employer] [place] [address] TCM Nurse 02/17/24 03/18/24 Tanya Powell [address] [place], [place] [address] Registered Nurse 04/02/24 07/01/24 Sarah Reyes LPN TCM Nurse 05/27/24 06/26/24 Ekaterina Gómez Straight Pin Making Machine Operator Apprentice Technician 07/14/24 07/14/24 Zully Caldwell LPN VALUE-[employer]ED [place] [address] TCM Nurse 07/16/24 08/15/24 Ekaterina Gómez Straight Pin Making Machine Operator Apprentice Technician 08/16/24 08/16/24 Patricia Yañez LPN [facility] TCM Nurse 08/25/24 10/17/24 Zee Lazar DO [address] [place] [id number] Resident 09/08/24 Fili Morley III, EVITA [address] [facility], [address] [place] [address] Film Painter 12/22/24 01/05/25 documented as of this encounter
--- OUTSIDE RECORDS SUMMARY | 2025-01-05 15:53 | XMS_ITS | Encounter Summary ---
Author Organization [facility] Address [address] [place] [address] Care Team Providers Care Medical Assistant Float Name Role Phone Alisa Kunz DO Unavailable [phone] Kodi Bustos DO Unavailable [phone] Sujit Arriola MD Unavailable [phone] Sujit Reyes MD Unavailable [phone] Zee Lazar DO Unavailable [phone] Alisa Kunz DO Primary Care Provider [phone] Milli KELLEY RN, William R Unavailable [phone] Reason for Visit * Reason Comments HRCM Encounter Details Date Type Department Care Team (Late st Contact Info) Description 12/29/2024 Patient Outreach POPULATION HEALTH [address] [facility] [place] [address] Fili Morley III, RN [address] [facility], [address] [place] [address] CM Social History Tobacco Use Types Packs/Day Years [...] How often do you attend chur or samaritan services? 1 to 4 times [...] Recorded Patient Health Questionnaire-2 Score 2 12/27/2024 [facility] - Occupational Stress Questionnaire Answer [...] money to buy more. Never true 12/23/19 Within the past 12 months, t he [...] living in a fdc (including now)? No 12/22/2024 [facility] Utilities Answer Date Recorded In the past 12 months has e [employer], gas, oil, or water company threatened to [...] drink first t anselmo in the morning (EYE-PEARL TECHNICIAN) to steady your nerves or to [...] encounter Miscellaneous Notes * Progress Notes - Fili Morley III, RN - 12/29/2024 3:59 PM EDT HRCM Outreach Completed on: 12/29/2024 Health Assessment: Symptom Changes/Updates: Since last HRCM communication. Patient had represented to the ER on 12/27/24 with generalized weakness. Since patient has continued struggling with fatigue, chronic debility,and feeling poorly in general. Patient spoke with Dr. Kunz yesterday who suspects possible Lupus flare and recommended f/u with Rheumatology [facility]. Patient noted they have reached out, but have not ye t heard back. Noted that BG has not dropped since modifications on Friday with endo. Mostly seeing BG in the 300's. Additional Information: Medications/Refills: Changes: Yes If Yes, specify: Toujeo increased to 8 units in the AM Insulin Lispro decreased to 2-3 units before meals. Barriers to RX Access: No: Referred to Pharmacy or FAP:No: If Yes, specify: Care Plan: Care Plan Updates: Health Goals Updates: Has HH scheduled to come on . Patient in need of intensive PT to improve mobility concerns. Patient stated main goal is getting assistance coordinating and rescheduling missed appointments due to hospitalizations. Short/ half-way goal- Patient will optimize/ improve mobility and endurance to improve quality of life. Care Gaps: Pop Health:Annual Wellness Visit (AWV), Immunizations , and Mammography Update and/or Changes: n/a SDOH Update: Other: [any other barriers, any issues, etc.] and Care Gaps: [Health Maintenance] Limited mobility Patient Care Information: Recent Discharge: 12/23/24 Follow-Up Appointment Info: Encounter Information Provider Department Dept Phone Address 12/28/2024 3:00 PM (Arrive by 2:40 PM) Alisa Kunz DO [facility] Internal Medicine [phone] [address] Floor [facility] [address] 01/05/2025 10:00 AM (Arrive by 9:30 AM) GS MR 2 PAV S Radiology [phone] [address] [facility] [address] 01/06/2025 2:00 PM (Arrive by 1:40 PM) Lavern Shoemaker MD [facility] Medicine Specialties [phone] [facility] [address] 01/12/2025 2:00 PM (Arrive by 1:40 PM) Ezra Fine MD Interventional Pain Medicine [phone] [address] [facility] [address] Neuro- 01/27/25 @ 10 am PCP- 02/02/25 @ 8:40 am Caregiver Support System: Daughter, family critical care physician x 7 days/ week Education Provided: Discussed monitoring daily weights/ I/O and s/s of fluid retention, fall risk reduction, and BG monitoring Next Steps: Scheduled Follow-Up:Will f/u within the next week. Plan to send Rheumatology message on status of moving f/u sooner. Population Health Nurse: Fili Morley III RN documented in this encounter Plan of Treatment Upcoming Encounters Date Type Department Care Team (Late st Contact Info) Description 01/06/2025 2:00 PM EDT Office Visit [facility] Medicine Specialties [address], [address] [place] [address] Lavern Shoemaker MD [address] [place] [address] 01/12/2025 1:10 PM EST Office Visit [facility] Medicine Specialties [address], [address] [place] [address] Noris Yee MD [address] [place] [address] 01/12/2025 2:00 PM EST Office Visit [facility] [address] [place] [address] Ezra Fine MD [address] [place] [address] 01/27/2025 10:00 AM EST Office Visit [facility] [address], [address] [place] [address] Sujit Cole, CHIEF MINISTER [address] [place] [address] 02/02/2025 8:40 AM EST Office Visit [facility] Internal Medicine [address], [address]rd [place] [address] Alisa Kunz, DO [address] [place] [address] 02/09/2025 12:20 PM EST Office Visit [facility] Endocrinology [address] [place] [address] Anne-Marie Kolb, CHIEF MINISTER [address] [facility] [address] [place] [address] 04/18/2025 2:40 PM EST Office Visit [facility] Endocrinology [address] [place] [address] Anne-Marie Kolb, CHIEF MINISTER [address] [facility] [address] [place] [address] documented as of this encounter Visit Diagnoses Diagnosis Encounter for support and coordination of transition of care- Primary Acute on chronic heart failure with preserved ejection fraction documented in this encounter Additional Health Concerns Assessment Noted Time PHQ-9 Depression Total Score: 0 09/09/19 11:19 AM EDT A fall risk assessment has been complete d for the patient 12/29/2024 4:11 PM EDT A Body Mass Index follow-up plan has been documented for the patient 12/27/2024 10:57 AM EDT documented as of this encounter Care Teams Medical Assistant Float Relationship Specialty Start Date End Date Alisa Kunz DO [address] [place] [address] PCP - General Internal Medicine 12/07/24 Alisa Kunz DO [address] [place] [address] Internal Medicine 11/21/23 Kodi Bustos DO [address] [place] [address] Surgeon Cardiothoracic Surgery 11/06/22 Sujit Arriola MD [address] [place] [address] Consulting Physician Pulmonary Disease 11/06/22 Sujit Reyes MD [address] [place] [address] Referring Physician 12/04/22 Zee Lazar DO [address] [place], [place] [phone] Resident 7/2/25 Fili Morley III, RN [address] [facility], [address] [place] [address] Air/Ocean Export Clerk 12/22/24 01/05/25 documented as of this encounter
--- OUTSIDE RECORDS SUMMARY | 2025-01-05 15:53 | XMS_ITS ---
Author Organization [facility] Address [address] [place] [address] Care Team Providers Care Automatic Lathe Tender Name Role Phone Alisa Kunz DO Unavailable [phone] Kodi Bustos DO Unavailable [phone] Sujit Arriola MD Unavailable [phone] Sujit Reyes MD Unavailable [phone] Zee Lazar DO Unavailable [phone] Alisa Kunz DO Primary Care Provider [phone] Milli KELLEY RN, Fili Noonan Unavailable [phone] High Risk Care Management Status:Closed (Closed) Start date:12/22/2024 Enrollment date:12/24/2024 Enrollment reason:Identified using referral data End date:01/05/2025 Close reason:Not Eligible Overview Refer to note Case Team Name Relationship Phone Fili Morley III RN(Responsible Staff) Car e Supervisor Calibration [phone] Continued Care and Services Coordination
--- OUTSIDE RECORDS SUMMARY | 2025-01-05 15:53 | XMS_ITS | Clinical Summary ---
Author Organization [facility] Address [address] [place] [address] Care Team Providers Care Specimen Preparation Assistant Name Role Phone Alisa Kunz DO Unavailable [phone] Kodi Bustos DO Unavailable [phone] Sujit Arriola MD Unavailable [phone] Sujit Reyes MD Unavailable [phone] Zee Lazar DO Unavailable [phone] Alisa Kunz DO Primary Care Provider [phone] Milli KELLEY RN, Fili Noonan Unavailable Allergies Active Allergy Reactions Criticality Noted Date [...] do not know rxn details Low 07/23/2019 Spironolactone Dizziness Medium 12/02/2024 Statins Other - please document in the [...] 1 tablet by mouth nightly. 021 Active cetirizine (ZyrTEC) 10 MG tablet Take 1 tablet by mouth every evening. Active levothyroxine (Synthroid, Levoxyl) 125 MCG tablet Take 1 tablet (125 mcg) by mouth 1 (one) time each day before breakfast. 90 tablet 3 024 Active oxygen (O2) gas Inhale 2 L continuously. via nasal canula Active DULoxetine (Cymbalta) [address] capsule Take 1 capsule (20 mg) by mouth 1 (one) time each day in the morning. Taking 80mg total 90 capsule 3 025 2025 Active acetaminophen (Tylenol) 500 MG tablet Take 2 tablets by mouth every 6 hours as needed. Active warfarin (Coumadin) 5 MG tablet Take 2.5 mg on Friday and 5mg the rest of the week and follow up with your warfarin pharmacist. 30 tablet 025 Active folic acid (Folvite) 1 MG tablet Taking 1 tablet five days of the week 90 tablet 1 025 Active Probiotic Product (acidophilus probiotic blend) capsule Take 1 capsule by mouth daily. Active mycophenolate (CellCept) 500 MG tabletIndications :Systemic lupus erythematosus (SLE) in adult (CMS/HCC) Take 2 tablets by mouth 2 times a day. 360 tablet 1 025 Active ferrous sulfate 324 (65 Fe) MG EC tablet Take 1 tablet by mouth daily with breakfast. Do not crush, chew, or split. Active Blood Glucose Monitoring Suppl (Blood Glucose Monitor System) w/Device kit Test blood sugars twice a day to calibrate cgm. Dx E10.65 1 kit Active glucose blood test strip Use to test blood sugars twice a day to calibrate cgm. Dx 10.65 100 each 12 025 Active Lancets misc Use twice a day to calibrate cgm Dx E10.65 100 each 3 025 Active Pitavastatin Calcium (Livalo) 4 MG tabletIndications :Type 1 diabetes mellitus with other specified complication,Dysl ipidemia Take 1 tablet by mouth daily. 90 tablet 3 025 Active gabapentin (Neurontin) 300 MG capsule Take 2 capsules by mouth 2 times a day. 120 capsule 2 025 Active lidocaine (Xylocaine) 2 % solutionIndicatio ns:Recurrent aphthous ulcer Take 5 mL by mouth as needed for mild pain. Swish and spit: Every 4 hours as needed. 100 mL Active Fluticasone-Umecl idin-Vilant (Trelegy Ellipta) 200-62.5-25 MCG/ACT aerosol powder Inhale 1 puff every morning. 60 each 025 Active brimonidine 0.2 % OP ophthalmic solution Administer 1 drop into both eyes nightly. Active DULoxetine (Cymbalta) [address] capsule Take 1 capsule by mouth every morning. Active Glucagon, rDNA, (Glucagon Emergency) 1 MG kit 1 mg as needed. 024 Active hydroxychloroquin e (Plaquenil) 200 MG tablet Take 1 tablet by mouth nightly. Active latanoprost (Xalatan) 0.005 % ophthalmic solution Administer 1 drop into both eyes nightly. 024 Active nitroglycerin (Nitrostat) 0.[address] 1 tablet under the tongue every 5 minutes as needed. 025 Active Urine Glucose-Ketones Test (Keto-Diastix) strip 1 strip by In Vitro route daily. Active Calcium Carbonate-Vitamin D (calcium-vitamin D) 500-200 MG-UNIT tablet Take 1 tablet by mouth daily. Active furosemide (Lasix) 40 MG tablet Take 1.5 tablets by mouth 2 times a day. 90 tablet 025 Active losartan (Cozaar) 25 MG tablet Take 1 tablet by mouth daily. 30 tablet Active ondansetron ODT (Zofran-ODT) 4 MG disintegrating tablet Dissolve 1 tablet on the tongue every 8 hours as needed for nausea or vomiting. 20 tablet Active insulin lispro (HumaLOG KWIKPEN) 100 UNIT/ML injection penIndications:Ty pe 1 diabetes mellitus with other specified complication Inject 2-3 units before meals plus 1:50>150. Max tdd 30 units 30 mL 2 Active insulin glargine (Toujeo SoloStar) 300 UNIT/ML injection pen (1 UNIT DIAL)Indications: Type 1 diabetes mellitus with other specified complication Inject 8 Units under the skin every morning. 4.5 mL 2 2025 Active latanoprost (Xalatan) 0.005 % ophthalmic solution Administer 1 drop into both eyes nightly. 2024 Discontinued(E ntered in Error) lisinopril 20 MG tabletIndications :Essential hypertension Take 1 tablet (20 mg total) by mouth 1 (one) time each day. Take one tablet each morning 90 tablet 3 022 2021 Discontinued DULoxetine (Cymbalta) [address] capsule Take 1 capsule by mouth daily. Do not crush or chew. Take in addition to one 20mg capsule for a total of 80mg daily. 2024 Discontinued(E ntered in Error) aspirin 81 MG EC tablet Take 1 tablet by mouth every evening. 2024 Discontinued(S top Taking at Discharge) insulin lispro (HumaLOG KWIKPEN) 100 UNIT/ML injection penIndications:Ty pe 1 diabetes mellitus with hyperglycemia Inject 2-6 units before meals plus 1:60>150. Max tdd 30 units 30 mL 2 025 2024 Discontinued(R eorder) insulin glargine (Toujeo SoloStar) 300 UNIT/ML injection pen (1 UNIT DIAL)Indications: Type 1 diabetes mellitus with hyperglycemia Inject 14 Units under the skin every morning. 4.5 mL 3 025 2024 Discontinued spironolactone (Aldactone) 25 MG tablet Take 0.5 tablets by mouth daily. 2024 Additional Information Patient taking differently:12.5 mg Oral Daily,Taking 1/4th tablet d/t feeling dizzy when she takes it, Reported on 12/06/2024 hydroxychloroquin e (Plaquenil) 200 MG tabletIndications :Systemic lupus erythematosus (SLE) in adult ([facility]) Take 1.5 tablets by mouth daily. 45 tablet 5 2024 Discontinued(E ntered in Error) sucralfate (Carafate) 1 GM/10ML suspension Take 10 mL by mouth 4 times a day. 473 mL 11 2024 Discontinued(E ntered in Error) furosemide (Lasix) 80 MG tablet Take 1 tablet by mouth daily. 30 tablet 2 2024 Discontinued ipratropium (Atrovent) 0.06 % nasal sprayIndications: Gustatory rhinitis Administer 2 sprays into each nostril 4 times a day. 15 mL 12 2024 Discontinued(E ntered in Error) DULoxetine (Cymbalta) [address] capsule Take 1 capsule by mouth every morning. 2024 Discontinued(E ntered in Error) ezetimibe (Zetia) 10 MG tablet Take 1 tablet by mouth daily. 2024 Discontinued(E ntered in Error) furosemide (Lasix) 80 MG tablet Take 1 tablet by mouth daily. 2024 Discontinued(E ntered in Error) Toujeo SoloStar 300 UNIT/ML injection pen (1 UNIT DIAL) Inject 6 Units under the skin 2 times a day. 2024 Discontinued(E ntered in Error) HumaLOG KWIKPEN 100 UNIT/ML injection pen Inject 3 Units under the skin 3 times a day with meals. 2024 Discontinued(E ntered in Error) levothyroxine (Synthroid, Levoxyl) 125 MCG tablet Take 1 tablet by mouth daily with breakfast. 2024 Discontinued(E ntered in Error) mycophenolate (Cellcept) 500 MG tablet Take 2 tablets by mouth 2 times a day. 2024 Discontinued(E ntered in Error) Pitavastatin Calcium 4 MG tablet Take 1 tablet by mouth daily. 2024 Discontinued(E ntered in Error) Trelegy Ellipta 200-62.5-25 MCG/ACT aerosol powder Take 1 puff by mouth daily. 2024 Discontinued(E ntered in Error) acetaminophen (Tylenol) 500 MG tablet Take 2 tablets by mouth every 6 hours as needed. 2024 Discontinued(E ntered in Error) cetirizine (ZyrTEC) 10 MG tablet Take 1 tablet by mouth nightly. 2024 Discontinued(E ntered in Error) Warfarin Sodium (warfarin, Coumadin, intermittent dosing) Take as directed per After Visit Summary. 2024 Discontinued(E ntered in Error) gabapentin (Neurontin) 300 MG capsule Take 2 capsules by mouth 2 times a day. 120 capsule 2024 Discontinued(E ntered in Error) insulin glargine (Toujeo SoloStar) 300 UNIT/ML injection pen (1 UNIT DIAL)Indications: Type 1 diabetes mellitus with hyperglycemia Inject 6 Units under the skin 2 times a day. 2024 Discontinued(R eorder) Active Problems Problem Noted Date Diagnosed Date Hospice care 01/05/2025 PVD (peripheral vascular disease) 12/27/2024 Decompensated heart failure 12/21/2024 Severe protein-calorie malnutrition 11/26/2024 Cerebrovascular accident (CVA) 11/20/2024 Recurrent aphthous ulcer 10/07/2024 Acute on chronic congestive heart failure, unspecified heart failure type 09/09/2024 Type 2 diabetes mellitus wit hout complication, with long-term current use of insulin 08/14/2024 Heart failure with preserved ejection fraction 0 [...] 05/25/2024 LV (left ventricular) mural thrombus 05/25/2024 Compression fracture of T12 vertebra 04/18/2024 04/18/2024 [...] been switched to warfarin. Follows with the [facility] anti-coagulation clinic closely. Coronary atherosclerosis of [...] From the hospital she was sent to [facility] for rehab. - Slowly improving, now [...] From the hospital she was sent to [facility] for rehab. - Slowly improving, now [...] From the hospital she was sent to [facility] for rehab. - Slowly improving: still [...] baclofen to help with muscle spasms/sleep at [facility]: switched to Robaxin 500 mg nightly [...] From the hospital she was sent to [facility] for rehab. - Slowly improving: still [...] baclofen to help with muscle spasms/sleep at [facility]: switched to Robaxin 500 mg nightly [...] From the hospital she was sent to [facility] for rehab. - Encouraged patient to contact surgeon (Dr. Ortiz) to discuss next steps and to discuss prognosis. Diastolic dysfunction 07/17/2021 Overview (01/05/2024): - Echocardiogram 11/27/2023: LVEF 55-60% with grade II diastolic dysfunction. Assessment & Plan (08/12/2023 2:51 PM EDT): HFpEF (EF 55-60% in 08/2022) CAD/ME s/p Stent + CABG (1999) CVA (2017) [...] 12/05/2020, 01/28/2022, 01/09/2023 Influenza, seasonal, injectable 12/08/2018 [employer] COVID-19 Vaccine (Purple Cap) 12+ 03/30/2020, 03/30/2020, [...] 12/2023. Colon cancer: Last colonoscopy 10/17/2020 at [facility] (Dr. Sujit Christine), personally visualized records: [...] 12/05/2020, 01/28/2022, 01/09/2023 Influenza, seasonal, injectable 12/08/2018 [employer] COVID-19 Vaccine (Purple Cap) 12+ 03/30/2020, 03/30/2020, [...] ? Colon cancer: Last colonoscopy 10/17/2020 at [facility] (Dr. Sujit Christine), personally visualized records: [...] reasons: ? The patient has a prior ME or stroke diagnosis A1c: Lab Results Component [...] 12/05/2020, 12/05/2020, 01/28/2022 Influenza, seasonal, injectable 12/08/2018 [facility] COVID-19 Vaccine (Purple Cap) 12+ 03/30/2020, [...] ? Colon cancer: Last colonoscopy 10/17/2020 at [facility] (Dr. Sujit Christine), personally visualized records: [...] - Was switched to Trelegy inhaler at [facility], refilled today 07/2021. Continues on O2 [...] as she is high risk for recurrent ME/stroke. Also on Zetia. Assessment & Plan (10/10/2021 [...] as she is high risk for recurrent ME/stroke. - Repeat lipid panel ordered 03/2021 (to be completed after 04/2021). Assessment & Plan (11/24/2020 8:49 AM EDT): Continue statin and zetia. Lipid utd. Does not tolerate high dose statin EWELINA (obstructive sleep apnea) 09/06/2020 Overview (04/30/2024): CPAP intolerant, wears O2 2L NC Complete heart block 08/18/2018 Overview (02/06/2022): - s/p PPM History of CVA (cerebrovascular accident) 2018 Overview (02/06/2022): - Unknown history. Paroxysmal atrial fibrillation 08/08/2017 Overview (04/16/2024): - [id number] of 6. - s/p PPM - Rate control: metoprolol ER 50 mg daily - Anticoagulation: warfarin - Follows with [facility] cardiology. Hypertension 12/26/2016 Overview (12/26/2022): - Chronic, [...] mg daily, metoprolol ER 50 mg daily. Excess skin of eyelid 05/31/2015 12/26/2022 Overview (11/18/2024): From Automated Load;Provider: Doron Zhu;Status: Active From Automated Load;Provider: Doron Zhu;Status: Active Tear film insufficiency 05/31/2015 12/27/19 Overview (11/18/2024): From Automated Load;Provider: Doron Zhu;Status: Active From Automated Load;Provider: Doron Zhu;Status: Active Epiretinal [...] patient to discuss insulin adjustments while at [facility]. Assessment & Plan (04/09/2021 4:01 PM [...] bg control Atherosclerotic heart diseas e of [place]qug[place] coronary artery without angina pectoris 05/05/2012 Overview (04/16/2024): - s/p CABG in 1999. NSTEMI s/p balloon angioplasty 05/2020 at [facility]. Follows with outside procurement intern. Assessment & Plan (11/24/2020 8:49 AM EDT): [...] Problem Noted Date Diagnosed Date Resolved Date Acute on chronic congestive heart failure 08/14/2024 12/23/2024 Heart failure 05/20/2024 05/25/2024 Streptococcal bacteremia 05/19/202405/2024 Bacterial pneumonia 05/13/2024 12/11/19 25 Acute hypoxic respiratory failure 04/29/2024 11/28/2024 Overview (04/30/2024): - Pt had the flu last week; still recovering ; wet cough still lingers - CT shows atelectasis likeley due to shallow breaths from T12 compression fracture pain - Pt saturating well on room air prior to discharge PLAN - Pt to continue with respiratory spirometry while at home to aid in airflow and opening of airway Hyponatremia 04/18/2024 04/30/2024 Influenza A (H1N1) 04/18/2024 04/18/2024 LV (left ventricular) mural thrombus 02/25/2024 04/16/2024 [...] been having telephone conversations with cardiology at [facility] and is currently taking 20mg [...] Was able to get patient in with [facility] ophthalmology right after our clinic appointment (where she follows regularly). - In the meantime, provided erythromycin eye ointment for bacterial conjunctivitis treatment. Assessment & Plan (05/13/2022 3:58 PM EST): - Concerning for bacterial or viral conjunctivitis vs. Scleritis. - Needs THOMPSON eye exam. - Was able to get patient in with [facility] ophthalmology right after our clinic appointment (where [...] bowel regimen. - Last colonoscopy performed at [facility] in Oct 2020 and unremarkable. Assessment & Plan (02/06/2022 2:48 PM EST): - Based on description more consistent with constipation. Some improvement with bowel regimen. - Last colonoscopy performed at [facility] in Oct 2020 and unremarkable. 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 021 Diabetes mellitus with diabe tic polyneuropathy 12/26/2017 09/07/2020 Global amnesia 12/26/2017 09/07/2020 Low magnesium levels 10/27/2017 021 Disorder of breast 01/27/2014 1 Hypoglycemia 08/27/2012 12/26/2022 Old myocardial infarction 05/05/2012 Encounters Date Type Department Care Team Description 01/05/2025 Patient Outreach [place]UL[place] [address] [place] [phone] Fili Morley III, RN HRCM 12/31/2024 Telephone [facility] Internal Medicine [address], [address] [place] [address] Alisa Kunz, DO HCN - Patient Message 12/30/2024 Telephone [facility] Internal Medicine [address], [address] [place] [address] Alisa Kunz, DO HCN Lab/home Health 12/30/2024 Telephone [facility] Internal Medicine [address], [address] [place] [address] Alisa Kunz, DO 12/30/2024 Telephone [facility] Women's Health [address], [address] [place] [address] Madison Atwood, EVITA 12/29/2024 Patient Outreach [place]UL[place] [address] [place] [address] Fili Morley III, RN HRCM 12/28/2024 Telephone [facility] Medicine Specialties [address], [address] [place] [address] Parisa Lopez Appointment 12/28/2024 Patient Outreach POPULATION [address] [place] [address] Fili Morley III, RN HRCM 12/28/2024 Telephone [facility] Internal Medicine [address], [address] [place] [address] Margaret Lee 12/28/2024 Telephone [facility] Internal Medicine [address], [address] [place] [address] Alisa Kunz, DO HCN Same Day Appt/Overbook Request 12/27/2024 11:55 AM EDT - 12/27/2024 5:12 PM EDT Emergency [facility] Emergency Department [address] [place] [address] Edgar Mancilla MD Hamm, Joel M, MD Weakness (Primary Dx); History of stroke Discharge Disposition: Home or Self Care 12/27/2024 9:40 AM EDT Office Visit [facility] Endocrinology [address] [place] [address] Anne-Marie Kolb, [employer] Type 1 diabetes mellitus with other specified complication (Primary Dx); Neuropathy; Hyperlipidemia, unspecified hyperlipidemia type; PVD (peripheral vascular disease) 12/27/2024 Travel 12/24/2024 Orders Only [facility] Internal Medicine [address], [address] [place] [address] Alisa Kunz, 12/24/2024 Patient Outreach POPULATION [address], [address] [place] [address] Fili Morley III, RN [facility] 12/24/2024 Patient Outreach POPULATION [address] [place], [address] [place] [address] Fili Morley III, RN [facility] 12/24/2024 Telephone [facility] Internal Medicine [address], [address] [place] [address] Alisa Kunz DO HCN Clinical Concern/Question 12/23/2024 Orders Only [facility] Internal Medicine [address], [address] [place] [address] Alisa Kunz DO Hospital discharge follow-up (Primary Dx) 12/23/2024 Telephone [facility] Medicine Specialties [address], [address] [place] [address] Lavern Shoemaker MD 12/22/2024 Patient Outreach POPULATION [address], [address] [place] [address] Fili Morley III, RN [facility] 12/22/2024 Patient Outreach POPULATION [address] [place], [address] [place] [address] Ekaterina Gómez Sarah 12/21/2024 4:24 PM EDT - 12/23/2024 2:10 PM EDT Hospital Encounter [facility] Inpatient [address] [place] [phone] Yanet Arce MD Saari, Haleigh D, Ynes Banks MD Al Nimri, Fadi W, MD Pleural effusion (Primary Dx); Acute on chronic congestive heart failure, unspecified heart failure type; Type 1 diabetes mellitus with hyperglycemia; Acute on chronic heart failure with preserved ejection fraction Discharge Disposition: Home or Self Care 12/21/2024 Travel 12/21/2024 Telephone [facility] Internal Medicine [address] [facility], [address] [place] [address] Alisa Kunz DO HCN - Patient Message 12/20/2024 Telephone [facility] Internal Medicine [address] [facility], [address] [place] [address] Alisa Kunz DO HCN Clinical Concern/Question 12/18/2024 Telephone [facility] Primary Care [address] [place] [address] Benjamín Grigsby MD 12/17/2024 Telephone [facility] Internal Medicine [address] [facility], [address] [place] [address] Alisa Kunz DO HCN - Patient Message 12/08/2024 Results Follow-Up [facility] Internal Medicine [address] [facility], [address] [place] [address] Alisa Kunz DO 12/07/2024 11:33 AM EDT - 12/07/2024 11:59 PM EDT Hospital Encounter [facility] Vascular Lab [address] [address] Limb swelling Discharge Disposition: Home or Self Care 12/07/2024 11:32 AM EDT Hospital Encounter [facility] V[facility] [address] [place] [address] Limb swelling Discharge Disposition: Home or Self Care 12/07/2024 Travel 12/06/2024 11:00 AM EDT Office Visit [facility] Internal Medicine [address] [place] [address], [address] [place] [address] Alisa Kunz, Type 1 diabetes mellitus with other specified complication (CMS/HCC) (Primary Dx); Closed fracture of tooth with delayed healing, subsequent encounter; Cerebrovascular accident (CVA) due to embolism of right posterior cerebral artery (CMS/HCC); Cerebrovascular accident (CVA) due to embolism of precerebral artery (CMS/HCC); Limb swelling; Osteopenia, unspecified location; Encounter for screening mammogram for breast cancer 12/06/2024 Telephone [facility] Internal Medicine [address] [place] [address], [address] [place] [address] Alisa Kunz DO HCN Clinical Concern/Question 12/06/2024 Travel 12/01/2024 Telephone [facility] Internal Medicine [address] [place] [address], [address] [place] [address] Alisa Kunz DO 11/27/2024 Results Follow-Up ICU PHARMACY [address] [place] [id number] Bonny Cancino, PharmD 11/25/2024 Travel 11/24/2024 Travel 11/23/2024 Travel 11/22/2024 Travel 11/21/2024 Travel 11/20/2024 12:56 PM EDT - 11/29/2024 4:33 PM EDT Hospital Encounter [facility] Inpatient [address] [place] [address] Brenden Soliman MD Jicha, MD Melecio Tyler, MD Alona Kaminski Suhas, MD Cerebrovascular accident (CVA) due to embolism of right posterior cerebral artery (CMS/HCC) (Primary Dx); Cerebrovascular accident (CVA), unspecified mechanism (CMS/HCC) Discharge Disposition: Care Home Facility 11/20/2024 Travel 11/17/2024 [facility] Internal Medicine [address], [address] [place] [address] Alisa Kunz, DO 11/16/2024 Refill [facility] Medicine Specialties [address], [address] [place] [address] Noris Yee MD Systemic lupus erythematosus (SLE) in adult (CMS/HCC) 11/15/2024 3:00 PM EDT Office Visit [facility] Women's Health [address], [address] [place] [address] Alisa Kunz, DO Chronic neck pain with osteoarthritis determined by x-ray (Primary Dx); Gustatory rhinitis; Phlegm in throat; Recurrent aphthous ulcer 11/15/2024 Travel 11/10/2024 Telephone [facility] Internal Medicine [address] [facility], [address] [place] [address] Alisa Kunz, DO HCN Clinical Concern/Question (Pain in back/neck) 11/05/2024 Telephone [facility] Internal Medicine [address], [address] [place] [address] Alisa Kunz, DO 11/02/2024 Telephone [facility] Internal Medicine [address] [facility], [address] [place] [address] Alisa Kunz, DO HCN Lab/home Health 11/01/2024 Orders Only [facility] Internal Medicine [address] [facility], [address] [place] [address] Alisa Kunz L, DO 11/01/2024 Telephone [facility] Internal Medicine [address] [facility] [address] [place] [address] Alisa Kunz, DO 10/27/2024 1:40 PM EDT Office Visit [facility] Endocrinology [address] [place] [phone] Anne-Marie Kolb, [employer] Type 1 diabetes mellitus with other specified complication ([facility]) (Primary Dx); Neuropathy; Hyperlipidemia, unspecified hyperlipidemia type; Dyslipidemia 10/27/2024 Travel 10/18/2024 [facility] Internal Medicine [address], [address] [place] [address] Alisa Kunz, DO 10/18/2024 Telephone [facility] Internal Medicine [address] [facility], [address] [place] [address] Alisa Kunz, DO 10/18/2024 Travel 10/14/2024 12:09 PM EDT - 10/14/2024 11:59 PM EDT Hospital Encounter [facility] Radiology [address], [address] [place] [address] Recurrent pleural effusion on left Discharge Disposition: Home or Self Care 10/14/2024 11:00 AM EDT Office Visit [facility] Medicine Specialties [address] [facility], [address] [place] [address] Cristian Zimmer MD Recurrent pleural effusion on left (Primary Dx); Chronic hypoxic respiratory failure; Obstructive lung disease ([facility]); Systemic lupus erythematosus (SLE) in adult ([facility]) 10/14/2024 Results Follow-Up [facility] Medicine Specialties [address], [address] [place] [phone] Cristian Zimmer MD 10/14/2024 Travel 10/11/2024 Telephone [facility] Otolaryngology [address] [phone] Chris Pepe MD HCN - Patient Message (questions) 10/07/2024 12:50 PM EDT Office Visit [facility] Otolaryngology [address] [phone] Chris Pepe MD Recurrent aphthous ulcer (Primary Dx); Systemic lupus erythematosus, unspecified SLE type, unspecified organ involvement status ([facility]) 10/07/2024 Travel 10/05/2024 [facility] Internal Medicine [address], 3rd [place] [address] Alisa Kunz DO from Last 3 Months Immunizations Immunization Administration Dates Next Due Hep A, Adult 01/24/2019, 9,01/24/2019,01/24,01/23/2019,01/23/2019,06/11/2018 ,06/11/2018,06/11/2018,06/11/2018 Influenza, High-dose, Split Virus, Trivalent, Injectable, preservative free 11/27/2023,11/27/2023,12/05/2020,01/18,01/18/2019,12/19/2017,12/19/2017 Influenza, Unspecified 12/09/2019 Influenza, high-dose, quadrivalent 01/09,01/09/2023,01/28/2022,01/28,12/05/2020,12/05/2020,12/05/2020 ,01/18/2019,01/18/2019,01/18/2019,01/08,12/19/2017,12/19/2017, 8 Influenza, seasonal, injectable 12/08/2018,12/08 [employer] COVID-19 Vac cine (Purple Cap) 12+ 04/22/2020,04/22/2020,03/30/2020,03/30 Pneumococcal Conjugate PCV 13 08/06/2019 ,08/06/2019,08/06/2019,08/05,07/02/2016,07/02/2016,07/02/2016 ,07/02/2016 Pneumococcal Polysaccharide PPV23 2019,06/11/2018,06/11/2018,06/11,06/11/2018 Zoster, Recombinant 01/24/2019, 9,01/24/2019,01/24,01/23/2019,01/23/2019,06/11/2018 ,06/11/2018,06/11/2018,06/11/2018 Family History Medical History Relation Name Comments Alcohol abuse Father Doron Antunez Arthritis Father Doron Antunez COPD Father Doron Antunez Hypercholesterolemia Father Doron Arriaza Alfredito Obesity Father [...] Heart disease Other 3 Gracy Marry Stamper [place] Kelin Diabetes Sibling Relation Name Status Comments Father Doron Arriaza Alfredito Mother gracy stamper alfredito kelin Other 1 Doron E Sumter Other 2 Other 3 Gracy Marry Stamper [place] Kelin Sibling Social History Tobacco Use Types [...] Recorded Patient Health Questionnaire-2 Score 2 12/27/2024 [facility] [...] living in a custodial (including now)? No 12/22/2024 [facility] Utilities Answer Date Recorded In the past 12 months has doctors' hospital Generate, gas, oil, or water company threatened to [...] drink first t anselmo in the morning (EYE-MASH FILTER CLOTH CHANGER) to steady your nerves or to get [...] oz) 12/27/2024 12:19 P M EDT Height 162.6 cm (5' 4 ) 12/27/2024 9:31 AM EDT Body Mass Index 24.82 12/27/2024 9:31 AM EDT Plan of Treatment Upcoming Encounters Date Type Department Care Team (Late st Contact Info) Description 01/06/2025 2:00 PM EDT Office Visit [facility] Medicine Specialties [address], [address] [place] [address] Lavern Shoemaker MD [address] [place] [address] 01/12/2025 1:10 PM EST Office Visit [facility] Medicine Specialties [address], [address] [place] [address] Noris Yee MD [address] [place] [address] 01/12/2025 2:00 PM EST Office Visit Interventional Pain Medicine [address], [address] [place] [phone] Ezra Fine MD [address] [place] [address] 01/27/2025 10:00 AM EST Office Visit [facility] [address], 1st [place] [address] Sujit Cole, YAMILET [address] [place] [address] 02/02/2025 8:40 AM EST Office Visit [facility] Internal Medicine [address], 3rd [place] [phone] Ze, Alisa L, DO [address] [place] [phone] 02/09/2025 12:20 PM EST Office Visit [facility] Endocrinology [address] [place] [phone] Anne-Marie Kolb, [employer] WORKER [address] [facility] [address] [place] [address] 04/18/2025 2:40 PM EST Office Visit [facility] Endocrinology [address] [place] [address] Anne-Marie Kolb, [employer] WORKER [address] [facility] [address] [place] [address] Health Maintenance Due Date Last Done Comments [facility]-Infant/Child/Adol SDOH Screenings 1950 Diabetes: Dental Exam 1961 [facility]-DTaP,Tdap,and Td Vaccines (1 - Tdap) 1970 CT Colonography 02/09/1996 Colonoscopy 02/09/1996 FIT-DNA 02/09/1996 FIT 02/09/1996 FOBT 02/09/1996 Sigmoidoscopy 02/09/1996 [facility]-RSV Vaccine: 60+ Years or (1 - Risk 60-74 years 1-dose series) 2011 [facility]-Breast Cancer Screening 11/10/2023 09/0 04/2021, 01/25/2020, 05/06/2017, Additional history exists [facility]-Medicare Annual Wellness (AWV) 01/10/2024 01/09/2023, 04/03/2021, 09/06/2020 [id number] Vaccine ( season) 2024 04/22/2020, 04/22/2020, 04/22/2020, Additional history exists [facility]-Influenza Vaccine (#1) 11/08/202411/26, 11/27/2023, 01/09/2023, Additional history exists [facility]-Bone Density Scan 01/10/2025 01/10/2023, 021 [facility]-Diabetes: Hemoglobin A1C 02/19/2025 11/20/2024, 11/19/2024, 08/14/2024, Additional history exists [facility]- SDOH Screenings 06/22/2025 [facility]-Adult SDOH Screenings 06/22/2025 12/22/2024 [facility]-Colorectal Cancer Screening 10/17/2025 Postponed from 02/09/1996 (Other Medical Reasons) [facility]-Depression Screening 12/27/2025 025, 09/08/2024, 09/18/2022 [facility]-Hepatitis A Vaccines Aged [...] this topic Medical Devices Implanted Type Area Facility Attendant Device Identifier Shelf Expiration Date Model / Serial / Lot Tendril Lead- 9 Implanted: by Naveen Velasquez (Quantity not on file) Lead Chest [employer] TENDRIL STS 8TC/46 / [id number] / Tendril Lead- 9 Implanted: by Naveen Velasquez (Quantity not on file) Lead [employer] TENDRIL STS 8TC/52 / [id number] / Lead- 9 Implanted: by Naveen Velasquez (Quantity not on file) Lead Heart 2087TC/46 / [id number] / Lead- 9 Implanted: by Naveen Velasquez (Quantity not on file) Lead Heart 2087TC/52 / [id number] / Blank Pacemaker-08/08 Implanted: by Naveen Velasquez (Quantity not on file) Pacemaker [employer]ITY MRI 2272 / [id number] / Pacemaker-08/08 Implanted: by Naveen Velasquez (Quantity not on file) Pacemaker Chest Wall [id number] / [id number] / Procedures Procedure Name Priority Date/Time Associated Diagnosis Comments TROPONIN T, HIGH SENSITIVITY, 2 HOUR, PLASMA Timed 12/27/2024 2:26 PM EDT ANTI XA LEVEL UNFRACTIONATED HEPARIN STAT 12/27/2024 1:00 PM EDT URINALYSIS MICROSCOPIC FOR UA REFLEX STAT 12/27/2024 12:56 PM EDT URINE MARIANO PANEL STAT 12/27/2024 12:5 6 PM EDT URINALYSIS WITH REFLEX MICROSCOPIC STAT 12/27/2024 12:56 PM EDT URINALYSIS WITH REFLEX MICROSCOPIC AND CULTURE STAT 12/27/2024 12:56 PM EDT ECG ADULT STAT 12/27/2024 12:33 PM EDT TROPONIN T, HIGH SENSITIVITY, 0 HOUR, PLASMA, REFLEX TO 2 HOUR STAT 12/27/2024 12:26 PM EDT TEST QUALITATIVE PLASMA STAT 12/27/2024 12:26 PM EDT COMPREHENSIVE METABOLIC PANEL, PLASMA STAT 12/27/2024 12:26 PM EDT APTT STAT 12/27/2024 12:26 PM EDT PROTHROMBIN TIME(PT) / INR STAT 12/27/2024 12:26 PM EDT CBC WITH AUTO DIFFERENTIAL STAT 12/27/2024 12:[address] ANGIO NECK STAT 12/27/2024 12:[address] ANGIO HEAD STAT 12/27/2024 12:[address] HEAD WO IV CONTRAST STAT 12/27/2024 12:03 PM EDT POCT GLUCOSE METER UNSOLICITED RESULTS Routine 12/27/2024 11:59 AM EDT OXYGEN THERAPY STAT 12/27/2024 11:56 AM EDT POCT GLUCOSE METER UNSOLICITED RESULTS Routine 12/23/2024 11:36 AM EDT POCT GLUCOSE METER UNSOLICITED RESULTS Routine 12/23/2024 8:42 AM EDT MAGNESIUM, PLASMA Routine 12/23/2024 2:3 4 AM EDT RENAL FUNCTION PANEL, PLASMA Routine 12/23/2024 2:34 AM EDT PROTHROMBIN TIME(PT) / INR Routine 12/23/2024 2:34 AM EDT POCT GLUCOSE [...] / INR Routine 12/22/2024 3:37 AM EDT MAGNESIUM, PLASMA Routine 12/22/2024 3:3 6 AM EDT RENAL FUNCTION PANEL, PLASMA Routine 12/22/2024 3:36 AM EDT CBC W/O DIFFERENTIAL Routine 12/22/2024 3:36 AM EDT POCT GLUCOSE METER UNSOLICITED RESULTS Routine 12/21/2024 8:58 PM EDT TROPONIN T, HIGH SENSITIVITY, 2 HOUR, PLASMA Timed 12/21/2024 7:08 PM EDT PHOSPHORUS, PLASMA Add-On 12/21/2024 4: 51 PM EDT MAGNESIUM, PLASMA Add-On 12/21/2024 4:5 1 PM EDT N-TERMINAL PROBNP, PLASMA STAT Add-on 12/21/2024 4:51 PM EDT TROPONIN T, HIGH SENSITIVITY, 0 HOUR, PLASMA, REFLEX TO 2 HOUR STAT 12/21/2024 4:51 PM EDT COMPREHENSIVE METABOLIC PANEL, PLASMA STAT 12/21/2024 4:51 PM EDT PROTHROMBIN TIME(PT) / INR STAT 12/21/2024 4:51 PM EDT CBC WITH AUTO DIFFERENTIAL STAT 12/21/2024 4:51 PM EDT XR CHEST 1 VIEW STAT 12/21/2024 4:51 PM EDT ECG ADULT STAT 12/21/2024 4:36 PM EDT VAS US VENOUS DUPLEX UPPER EXTREMITY UNILATERAL STAT 12/07/2024 12:18 PM EDT Limb swelling VAS US VENOUS DUPLEX LOWER EXTREMITY BILATERAL STAT 12/07/2024 11:58 AM EDT Limb swelling POCT GLUCOSE Routine 12/06/2024 11:42 AM EDT Type 1 diabetes mellitus with other specified complication (CMS/HCC) POCT GLUCOSE METER UNSOLICITED RESULTS Routine 11/29/2024 11:27 AM EDT CBC W/O DIFFERENTIAL Routine 11/29/2024 8:19 AM EDT POCT GLUCOSE METER UNSOLICITED RESULTS Routine 11/29/2024 7:51 AM EDT POCT GLUCOSE METER UNSOLICITED RESULTS Routine 11/29/2024 4:20 AM EDT BASIC METABOLIC PANEL, PLASMA Routine 11/29/2024 4:00 AM EDT PROTHROMBIN TIME(PT) / INR Routine 11/29/2024 4:00 AM EDT POCT GLUCOSE [...] UNSOLICITED RESULTS Routine 11/28/2024 6:11 AM EDT BASIC METABOLIC PANEL, PLASMA Routine 11/28/2024 5:09 AM EDT PROTHROMBIN TIME(PT) / INR Routine 11/28/2024 5:09 AM EDT POCT GLUCOSE [...] UNSOLICITED RESULTS Routine 11/27/2024 7:34 AM EDT BASIC METABOLIC PANEL, PLASMA Routine 11/27/2024 5:21 AM EDT CBC W/O DIFFERENTIAL Routine 11/27/2024 5:21 AM EDT PROTHROMBIN TIME(PT) / INR Routine 11/27/2024 5:21 AM EDT POCT GLUCOSE [...] AIRWAY CLEARANCE Routine 11/26/2024 9:01 AM EDT BASIC METABOLIC PANEL, PLASMA Routine 11/26/2024 8:27 AM EDT PROTHROMBIN TIME(PT) / INR Routine 11/26/2024 8:27 AM EDT POCT GLUCOSE [...] PROCALCITONIN, PLASMA Routine 11/25/2024 8:45 AM EDT BASIC METABOLIC PANEL, PLASMA Routine 11/25/2024 8:45 AM EDT CBC W/O DIFFERENTIAL Routine 11/25/2024 8:45 AM EDT POCT GLUCOSE METER UNSOLICITED RESULTS Routine 11/25/2024 8:23 AM EDT OXYGEN THERAPY STAT 11/25/2024 8:00 AM EDT POCT GLUCOSE METER UNSOLICITED RESULTS Routine 11/25/2024 5:24 AM EDT POCT GLUCOSE METER UNSOLICITED RESULTS Routine 11/25/2024 4:[address] CHEST W IV CONTRAST Routine 11/25/2024 3:44 AM EDT POCT GLUCOSE METER UNSOLICITED [...] / INR Routine 11/24/2024 5:03 AM EDT COMPREHENSIVE METABOLIC PANEL, PLASMA Routine 11/24/2024 5:03 AM EDT CBC WITH AUTO DIFFERENTIAL Routine 11/24/2024 5:03 AM EDT POCT GLUCOSE [...] / INR Routine 11/23/2024 2:53 AM EDT COMPREHENSIVE METABOLIC PANEL, PLASMA Routine 11/23/2024 2:53 AM EDT CBC WITH AUTO DIFFERENTIAL Routine 11/23/2024 2:53 AM EDT POCT GLUCOSE [...] / INR Routine 11/22/2024 9:42 AM EDT COMPREHENSIVE METABOLIC PANEL, PLASMA Routine 11/22/2024 9:42 AM EDT CBC WITH AUTO DIFFERENTIAL Routine 11/22/2024 9:42 AM EDT OXYGEN THERAPY STAT 11/22/2024 8:00 AM EDT WOUND OSTOMY EVAL AND TREAT Routine 11/22/2024 7:[address] HEAD WO IV CONTRAST STAT 11/22/2024 6:21 AM EDT POCT GLUCOSE METER UNSOLICITED [...] EDT APTT STAT 11/20/2024 3:26 PM EDT ANTI XA LEVEL UNFRACTIONATED HEPARIN STAT 11/20/2024 3:26 PM EDT PROTHROMBIN TIME(PT) / INR STAT 11/20/2024 3:26 PM EDT TSH Routine 11/20/2024 2:28 PM EDT HEMOGLOBIN A1C Routine 11/20/2024 2:28 PM EDT TROPONIN T, HIGH SENSITIVITY, 0 HOUR, PLASMA, REFLEX TO 2 HOUR STAT 11/20/2024 1:39 PM EDT TEST QUALITATIVE PLASMA STAT 11/20/2024 1:39 PM EDT COMPREHENSIVE METABOLIC PANEL, PLASMA STAT 11/20/2024 1:39 PM EDT CBC WITH AUTO DIFFERENTIAL STAT 11/20/2024 1:39 PM EDT ECG ADULT STAT 11/20/2024 1:[address] ANGIO NECK STAT 11/20/2024 1:[address] ANGIO HEAD STAT 11/20/2024 1:[address] HEAD WO IV CONTRAST STAT 11/20/2024 1:09 PM EDT POCT GLUCOSE METER UNSOLICITED RESULTS Routine 11/20/2024 1:01 PM EDT OXYGEN THERAPY STAT 11/20/2024 12:59 PM EDT OXYGEN THERAPY STAT 11/20/2024 12:59 PM EDT OXYGEN THERAPY STAT 11/20/2024 12:59 PM EDT XR CHEST 2 VIEWS Routine 10/14/2024 12:1 [...] Relevant to Health Maintenance Results * (ABNORMAL) Troponin T, High Sensitivity, 2 Hour, Plasma (12/27/2024 2:26 PM EDT) Only the most recent of3 resultswithin the time period is included. Troponin T, High Sensitivity, 2 Hour 35(H) <14 ng/L 12/27/2024 3:10 PM EDT [facility] Troponin Delta 1 <10 ng/L 12/27/2024 3:10 PM EDT [facility] Troponin Delta Interpretation Not Significant 12/27/2024 3:10 PM EDT [facility] Comment:Not Significant. No acute change in troponin observed between the baseline and 2 hour samples. Blood Venous blood specimen / Unknown Venipuncture / Unknown 12/27/2024 2:26 PM EDT 12/27/2024 2:32 PM EDT us Edgar Mancilla MD LAB BLOOD ORDERABLES Final Re sult [facility] [address] [place] [address] * Anti Xa Level Unfractionated Heparin (12/27/2024 1:00 PM EDT) Only the most recent of2 resultswithin the time period is included. Anti Xa Level Unfractionated Heparin <0.11 <1.00 IU/mL 12/27/2024 1:39 PM EDT [facility] Blood Venous blood specimen / Unknown Venipuncture / Unknown 12/27/2024 1:00 PM EDT 12/27/2024 1:03 PM EDT Narrative [facility] - 12/27/2024 1:39 PM EDT Therapeutic Range: UFH Full Dose and ACS/ME protocols*: 0.30 - 0.70 IU/mL UFH Low Dose protocol*: 0.25 - 0.50 IU/mL UFH prophylaxis: Not established us Edgar Mancilla MD LAB BLOOD ORDERABLES Final Re sult Performing Organization Address [facility] [place] [address] * Urine Mariano Panel (12/27/2024 12:56 PM EDT) Extra Reflex urine culture not indicated 12/27/2024 3:01 PM EDT [facility] Urine Urine specimen obtained by clean catch procedure / Unknown Non-blood Collection / Unknown 12/27/2024 12:56 PM EDT 12/27/2024 1:43 PM EDT us Edgar Mancilla MD LAB URINE ORDERABLES Final Re sult Performing Organization Address [facility]/[place] [address] * Urinalysis Microscopic Examination (12/27/2024 12:56 PM EDT) Urine Urine specimen obtained by clean catch procedure / Unknown Non-blood Collection / Unknown 12/27/2024 12:56 PM EDT 12/27/2024 1:04 PM EDT us Edgar Mancilla MD LAB URINE ORDERABLES Final Re sult [facility] [address] [place] [address] * (ABNORMAL) Urinalysis with reflex microscopic (Culture NOT Included) (12/27/2024 12:56 PM EDT) Color, Urine Yellow LAB URINALYSIS - AUTOMATED METHOD 12/27/2024 1:41 PM EDT [facility] Clarity, Urine Clear LAB URINALYSIS - AUTOMATED METHOD 12/27/2024 1:41 PM EDT [facility] Spec [place], Urine 1.015 1.005 - 1.030 LAB URINALYSIS - AUTOMATED METHOD 12/27/2024 1:41 PM EDT [facility] pH, Urine 7.0 5.0 - 8.0 LAB URINALYSIS - AUTOMATED METHOD 12/27/2024 1:41 PM EDT [facility] Protein, Urine 30(A) Negative mg/dL LAB URINALYSIS - AUTOMATED METHOD 12/27/2024 1:41 PM EDT [facility] Glucose, Urine Negative Negative mg/dL LAB URINALYSIS - AUTOMATED METHOD 12/27/2024 1:41 PM EDT [facility] Ketones, Urine Negative Negative mg/dL LAB URINALYSIS - AUTOMATED METHOD 12/27/2024 1:41 PM EDT [facility] Blood, Urine Trace(A) Negative LAB URINALYSIS - AUTOMATED METHOD 12/27/2024 1:41 PM EDT [facility] Bilirubin, Urine Negative Negative LAB URINALYSIS - AUTOMATED METHOD 12/27/2024 1:41 PM EDT [facility] Urobilinogen, Urine 1.0 0.2 to 1.0 mg/dL LAB URINALYSIS - AUTOMATED METHOD 12/27/2024 1:41 PM EDT [facility] Leukocytes, Urine Negative Negative LAB URINALYSIS - AUTOMATED METHOD 12/27/2024 1:41 PM EDT [facility] Nitrite, Urine Negative Negative LAB URINALYSIS - AUTOMATED METHOD 12/27/2024 1:41 PM EDT [facility] RBC, Urine 4 - 10(A) 0 to 3 /HPF LAB URINALYSIS - AUTOMATED METHOD 12/27/2024 1:41 PM EDT [facility] Comment:This result was prev iously suppressed from the chart. WBC, Urine 0 - 5 0 to 5 /HPF LAB URINALYSIS - AUTOMATED METHOD 12/27/2024 1:41 PM EDT [facility] Comment:This result was prev iously suppressed from the chart. Squamous Epithelial Cells 0 - 2 0 to 5 /HPF LAB URINALYSIS - AUTOMATED METHOD 12/27/2024 1:41 PM EDT [facility] Comment:This result was prev iously suppressed from the chart. Hyaline Casts 0 - 2 0 to 5 /LPF LAB URINALYSIS - AUTOMATED METHOD 12/27/2024 1:41 PM EDT [facility] Comment:This result was prev iously suppressed from the chart. Bacteria, Urine Negative Negative LAB URINALYSIS - AUTOMATED METHOD 12/27/2024 1:41 PM EDT [facility] Comment:This result was prev iously suppressed from the chart. Urine Urine specimen obtained by clean catch procedure / Unknown Non-blood Collection / Unknown 12/27/2024 12:56 PM EDT 12/27/2024 1:04 PM EDT us Edgar Mancilla MD LAB URINE ORDERABLES Final Re sult [facility] [address] [place] [address] * ECG Adult (12/27/2024 12:33 PM EDT) Only the most recent of4 resultswithin the time period is included. EKG DIAGNOSIS CLASS Abnormal MUSE ECG Ventricular Rate 60 BPM MUSE ECG QRSD Interval 200 ms MUSE ECG QT Interval 570 ms MUSE ECG QTC Interval 570 ms MUSE ECG R [place] -77 degrees MUSE ECG T Wave [place] 102 degrees MUSE ECG Diagnosis Poor data quality, interpretation may be adversely affected MUSE ECG Diagnosis Poor data quality MUSE ECG Diagnosis Ventricular-paced rhythm MUSE ECG Diagnosis unclear atrial rhythm MUSE ECG Diagnosis Abnormal ECG MUSE ECG Diagnosis MUSE ECG Diagnosis Confirmed by Jarad Rivera ([id number]) on 12/27/2024 1:05:12 PM MUSE ECG 12/27/2024 12:3 3 PM EDT 12/27/2024 1:05 PM EDT us Edgar Mancilla MD ECG ORDERABLES Final Result Performing Organization Address [facility] Co de Phone Number MUSE ECG * (ABNORMAL) Troponin now and 120 min (12/27/2024 12:26 PM EDT) Only the most recent of3 resultswithin the time period is included. Troponin T, High Sensitivity, 0 Hour 36(H) <14 ng/L 12/27/2024 12:50 PM EDT [facility] Blood Venous blood specimen / Unknown Venipuncture / Unknown 12/27/2024 12:26 PM EDT 12/27/2024 12:28 PM EDT us Edgar Mancilla MD LAB BLOOD ORDERABLES Final Re sult Performing Organization Address [facility] Co de Phone Number [facility] [address] [place] [address] * (ABNORMAL) APTT (PTT) (12/27/2024 12:26 PM EDT) Only the most recent of2 resultswithin the time period is included. aPTT 41(H) 25 - 35 sec 12/27/2024 12:42 PM EDT [facility] Blood Venous blood specimen / Unknown Venipuncture / Unknown 12/27/2024 12:26 PM EDT 12/27/2024 12:28 PM EDT Edgar Mancilla MD LAB BLOOD ORDERABLES Final Re sult Performing Organization Address [facility] Co de Phone Number [facility] [address] [place] [address] * (ABNORMAL) Prothrombin Time (12/27/2024 12:26 PM EDT) Only the most recent of13 resultswithin the time period is included. Prothrombin Time 28.9(H) 12.0 - 14.3 sec 12/27/2024 12:42 PM EDT [facility] INR 2.7(H) 0.9 - 1.1 12/27/2024 12:42 PM EDT [facility] Blood Venous blood specimen / Unknown Venipuncture / Unknown 12/27/2024 12:26 PM EDT 12/27/2024 12:28 PM EDT Narrative [facility] - 12/27/2024 12:42 PM EDT OPTIMAL INR RANGES FOR PATIENT ON ORAL ANTICOAGULANT THERAPY Prevention of venous thromboembolism INR 2.0 to 3.0 In patients with heart disease: Atrial fibrillation INR 2.0 to 3.0 Valvular heart disease INR 2.0 to 3.0 Tissue heart valves INR 2.0 to 3.0 Mechanical prosthetic valves INR 2.5 to 3.5 Prevention of recurrent ME INR 2.5 to 3.5 us Edgar Mancilla MD LAB BLOOD ORDERABLES Final Re sult [facility] [address] [place] [address] * (ABNORMAL) CBC with Diff (12/27/2024 12:26 PM EDT) Only the most recent of6 resultswithin the time period is included. WBC Count 5.95 3.70 - 10.30 10*3/uL LAB HEMATOLOGY METHOD 12/27/2024 12:36 PM EDT [facility] RBC Count 3.43(L) 3.90 - 5.20 10*6/uL LAB HEMATOLOGY METHOD 12/27/2024 12:36 PM EDT [facility] HGB 10.2(L) 11.2 - 15.7 g/dL LAB HEMATOLOGY METHOD 12/27/2024 12:36 PM EDT [facility] HCT 31.8(L) 34.0 - 45.0 % LAB HEMATOLOGY METHOD 12/27/2024 12:36 PM EDT [facility] Platelet Count 298 155 - 369 10*3/uL LAB HEMATOLOGY METHOD 12/27/2024 12:36 PM EDT [facility] MCV 93 79 - 98 fL LAB HEMATOLOGY METHOD 12/27/2024 12:36 PM EDT [facility] MCH 29.7 26.0 - 32.0 pg LAB HEMATOLOGY METHOD 12/27/2024 12:36 PM EDT [facility] MCHC 32.1 30.7 - 35.5 g/dL LAB HEMATOLOGY METHOD 12/27/2024 12:36 PM EDT [facility] RDW 14.6(H) 11.5 - 14.5 % LAB HEMATOLOGY METHOD 12/27/2024 12:36 PM EDT [facility] MPV 10.1 8.8 - 12.5 fL LAB HEMATOLOGY METHOD 12/27/2024 12:36 PM EDT [facility] nRBC 0.0 <=0.0 per 100 WBCs LAB HEMATOLOGY METHOD 12/27/2024 12:36 PM EDT [facility] Differential Type Automated LAB HEMATOLOGY METHOD 12/27/2024 12:36 PM EDT [facility] Neutrophils % 69 % LAB HEMATOLOGY METHOD 12/27/2024 12:36 PM EDT [facility] Lymphocytes % 15 % LAB HEMATOLOGY METHOD 12/27/2024 12:36 PM EDT [facility] Monocytes % 10 % LAB HEMATOLOGY METHOD 12/27/2024 12:36 PM EDT [facility] Eosinophils % 3 % LAB HEMATOLOGY METHOD 12/27/2024 12:36 PM EDT [facility] Basophils % 2 % LAB HEMATOLOGY METHOD 12/27/2024 12:36 PM EDT [facility] Immature Granulocytes % 1 % LAB HEMATOLOGY METHOD 12/27/2024 12:36 PM EDT [facility] Neutrophils Absolute 4.22 1.60 - 6.10 10*3/uL LAB HEMATOLOGY METHOD 12/27/2024 12:36 PM EDT [facility] Lymphocytes Absolute 0.87(L) 1.20 - 3.90 10*3/uL LAB HEMATOLOGY METHOD 12/27/2024 12:36 PM EDT [facility] Monocytes Absolute 0.58 0.30 - 0.90 10*3/uL LAB HEMATOLOGY METHOD 12/27/2024 12:36 PM EDT [facility] Eosinophils Absolute 0.15 0.00 - 0.50 10*3/uL LAB HEMATOLOGY METHOD 12/27/2024 12:36 PM EDT [facility] Basophils Absolute 0.09 0.00 - 0.10 10*3/uL LAB HEMATOLOGY METHOD 12/27/2024 12:36 PM EDT [facility] Immature Granulocytes Absolute 0.04 0.00 - 0.06 10*3/uL LAB HEMATOLOGY METHOD 12/27/2024 12:36 PM EDT [facility] Blood Venous blood specimen / Unknown Venipuncture / Unknown 12/27/2024 12:26 PM EDT 12/27/2024 12:33 PM EDT Narrative [facility] - 12/27/2024 12:36 PM EDT Therapeutic decision making should be based on absolute values, rather than percentages. Edgar Mancilla MD LAB BLOOD ORDERABLES Final Re sult Performing Organization Address [facility] de Phone Number [facility] [address] [place] [address] * Test Qualitative Plasma (12/27/2024 12:26 PM EDT) Only the most recent of2 resultswithin the time period is included. Test Negative Negative 12/27/2024 12:50 PM EDT [facility] Blood Venous blood specimen / Unknown Venipuncture / Unknown 12/27/2024 12:26 PM EDT 12/27/2024 12:28 PM EDT Narrative [facility] - 12/27/2024 12:50 PM EDT Reference Range: Males and non- females: Negative. Edgar Mancilla MD LAB BLOOD ORDERABLES Final Re sult Performing Organization Address [facility] Co de Phone Number [facility] [address] [place] [address] * (ABNORMAL) Comprehensive Metabolic Panel (12/27/2024 12:26 PM EDT) Only the most recent of6 resultswithin the time period is included. Glucose, Plasma 233(H) 74 - 99 mg/dL 12/27/2024 12:50 PM EDT [facility] BUN, Plasma 22 8 - 23 mg/dL 12/27/2024 12:50 PM EDT [facility] Creatinine, Plasma 0.94 0.60 - 1.10 mg/dL 12/27/2024 12:50 PM EDT [facility] BUN/Creatinine Ratio 23 12/27/2024 12:50 PM EDT [facility] Sodium, Plasma 131(L) 136 - 145 mmol/L 12/27/2024 12:50 PM EDT [facility] Potassium, Plasma 3.9 3.6 - 4.9 mmol/L 12/27/2024 12:50 PM EDT [facility] Chloride, Plasma 91(L) 97 - 107 mmol/L 12/27/2024 12:50 PM EDT [facility] CO2, Plasma 31(H) 22 - 29 mmol/L 12/27/2024 12:50 PM EDT [facility] Anion Gap 9 6 - 16 mmol/L 12/27/2024 12:50 PM EDT [facility] Total Calcium, Plasma 8.4(L) 8.9 - 10.2 mg/dL 12/27/2024 12:50 PM EDT [facility] Total Protein 6.5 6.3 - 7.9 g/dL 12/27/2024 12:50 PM EDT [facility] Albumin, Plasma 2.8(L) 3.5 - 5.2 g/dL 12/27/2024 12:50 PM EDT [facility] AST, Plasma 46(H) 10 - 35 U/L 12/27/2024 12:50 PM EDT [facility] Comment:Hemolyzed, result ma y be falsely increased. ALT, Plasma 19 10 - 35 U/L 12/27/2024 12:50 PM EDT [facility] Alkaline Phosphatase, Plasma 117 46 - 142 U/L 12/27/2024 12:50 PM EDT [facility] Total Bilirubin, Plasma 0.3 0.2 - 1.1 mg/dL 12/27/2024 12:50 PM EDT [facility] eGFRcr 64.2 mL/min/1.7 3m*2 12/27/2024 12:50 PM EDT [facility] Comment:Reported eGFRcr in m L/min/1.73m2 is based the CKD-EPI 2020 equation that does not use a race coefficient. Blood Venous blood specimen / Unknown Venipuncture / Unknown 12/27/2024 12:26 PM EDT 12/27/2024 12:28 PM EDT us Edgar Mancilla MD LAB BLOOD ORDERABLES Final Re sult [facility] [address] [place] [address] * CT Angio Neck (12/27/2024 12:16 PM EDT) Only the most recent of2 resultswithin the time period is included. Anatomical Region Laterality Modality Carotid Artery Computed [...] Total DLP (Dose-Length Product): 1632.12 mGy.cm (accession [id number]), 1632.12 mGy.cm (accession [id number]). Please note: The reported value represents the [...] no aneurysm of either internal carotid artery. [place] and Major Peripheral Branches: There [...] Total DLP (Dose-Length Product): 1632.12 mGy.cm (accession [id number]),1632.12 mGy.cm (accession [id number]). Please note: The reported valuerepresents the total [...] no aneurysm of either internal carotid artery. [place] and Major Peripheral Branches: There [...] CT Angio Head (12/27/2024 12:16 PM EDT) Only the most recent of2 resultswithin the time period is included. Anatomical Region Laterality Modality [place] Computed Tomogr aphy Impressions 12/27/2024 [...] 12:28 PM Final report signed by Elier Ltuz MD on 12/27/2024 12:47 PM Narrative 12/27/2024 [...] Total DLP (Dose-Length Product): 1632.12 mGy.cm (accession [id number]), 1632.12 mGy.cm (accession [id number]). Please note: The reported value represents the [...] no aneurysm of either internal carotid artery. [place] and Major Peripheral Branches: There [...] Total DLP (Dose-Length Product): 1632.12 mGy.cm (accession [id number]),1632.12 mGy.cm (accession [id number]). Please note: The reported valuerepresents the total [...] no aneurysm of either internal carotid artery. [place] and Major Peripheral Branches: There [...] COMMUNICATION: Per this written report. Drafted by Eleir Lutz MD on 12/27/2024 12:28 PM Final report signed by Elier Lutz MD on 12/27/2024 12:47 PM us Edgar Mancilla MD IMG CT PROCEDURES Final Resul t * CT Head wo IV contrast (12/27/2024 12:03 PM EDT) Only the most recent of3 resultswithin the time period is included. Anatomical Region Laterality Modality Head Computed Tomogra [...] POCT glucose meter (12/27/2024 11:59 AM EDT) Only the most recent of63 resultswithin the time period is included. POCT Glucose 188(H) 74 - 99 mg/dL 12/27/2024 12:00 PM EDT [facility] Comment:Accuracy of a glucos e result [...] 12/27/2024 12:00 PM EDT [facility] Senior Manager Creative Services ID Yoselin Varela 12/28/19 12:00 PM EDT [facility] Device ID [id number] 12/27/2024 12:00 PM EDT [facility] Specimen Type POC Capillary 12/27/2024 12:00 PM EDT [facility] Blood Capillary blood specimen / Unknown 12/27/2024 11:59 AM EDT 12/27/2024 12:00 PM EDT Generic Provider Poct LAB POINT OF CARE TEST DOCKED DEVICE UNSOLICITED RESULTS Final Result Performing Organization Address [facility] Co de Phone Number [facility] [address] [place] [address] * (ABNORMAL) Magnesium, Plasma (12/23/2024 2:34 AM EDT) Only the most recent of3 resultswithin the time period is included. Magnesium, Plasma 1.8(L) 1.9 - 2.4 mg/dL 12/23/2024 3:37 AM EDT [facility] Blood Venous blood specimen / Unknown Venipuncture / Unknown 12/23/2024 2:34 AM EDT 12/23/2024 3:05 AM EDT Sharath Monae MD LAB BLOOD ORDERABLES Final Re sult Performing Organization Address City/[facility] Co de Phone Number [facility] [address] [place] [address] * (ABNORMAL) Renal Function Panel, Plasma (12/23/2024 2:34 AM EDT) Only the most recent of2 resultswithin the time period is included. Glucose, Plasma 202(H) 74 - 99 mg/dL 12/23/2024 3:37 AM EDT [facility] BUN, Plasma 22 8 - 23 mg/dL 12/23/2024 3:37 AM EDT [facility] Creatinine, Plasma 0.89 0.60 - 1.10 mg/dL 12/23/2024 3:37 AM EDT [facility] BUN/Creatinine Ratio 25 12/23/2024 3:37 AM EDT [facility] Sodium, Plasma 135(L) 136 - 145 mmol/L 12/23/2024 3:37 AM EDT [facility] Potassium, Plasma 3.6 3.6 - 4.9 mmol/L 12/23/2024 3:37 AM EDT [facility] Chloride, Plasma 94(L) 97 - 107 mmol/L 12/23/2024 3:37 AM EDT [facility] CO2, Plasma 31(H) 22 - 29 mmol/L 12/23/2024 3:37 AM EDT [facility] Anion Gap 10 6 - 16 mmol/L 12/23/2024 3:37 AM EDT [facility] Total Calcium, Plasma 8.7(L) 8.9 - 10.2 mg/dL 12/23/2024 3:37 AM EDT [facility] Phosphorus, Plasma 3.7 2.5 - 4.5 mg/dL 12/23/2024 3:37 AM EDT [facility] Albumin, Plasma 2.8(L) 3.5 - 5.2 g/dL 12/23/2024 3:37 AM EDT [facility] eGFRcr 68.6 mL/min/1.7 3m*2 12/23/2024 3:37 AM EDT [facility] Comment:Reported eGFRcr in m L/min/1.73m2 is based the CKD-EPI 2020 equation that does not use a race coefficient. Blood Venous blood specimen / Unknown Venipuncture / Unknown 12/23/2024 2:34 AM EDT 12/23/2024 3:05 AM EDT us Sharath Monae MD LAB BLOOD ORDERABLES Final Re sult [facility] [address] [place] [address] * (ABNORMAL) CBC W/O Differential (12/22/2024 3:36 AM EDT) Only the most recent of4 resultswithin the time period is included. WBC Count 5.62 3.70 - 10.30 10*3/uL LAB HEMATOLOGY METHOD 12/22/2024 4:15 AM EDT [facility] RBC Count 3.34(L) 3.90 - 5.20 10*6/uL LAB HEMATOLOGY METHOD 12/22/2024 4:15 AM EDT [facility] HGB 9.7(L) 11.2 - 15.7 g/dL LAB HEMATOLOGY METHOD 12/22/2024 4:15 AM EDT [facility] HCT 30.8(L) 34.0 - 45.0 % LAB HEMATOLOGY METHOD 12/22/2024 4:15 AM EDT [facility] Platelet Count 310 155 - 369 10*3/uL LAB HEMATOLOGY METHOD 12/22/2024 4:15 AM EDT [facility] MCV 92 79 - 98 fL LAB HEMATOLOGY METHOD 12/22/2024 4:15 AM EDT [facility] MCH 29.0 26.0 - 32.0 pg LAB HEMATOLOGY METHOD 12/22/2024 4:15 AM EDT [facility] MCHC 31.5 30.7 - 35.5 g/dL LAB HEMATOLOGY METHOD 12/22/2024 4:15 AM EDT [facility] RDW 14.6(H) 11.5 - 14.5 % LAB HEMATOLOGY METHOD 12/22/2024 4:15 AM EDT [facility] MPV 9.5 8.8 - 12.5 fL LAB HEMATOLOGY METHOD 12/22/2024 4:15 AM EDT [facility] nRBC 0.0 <=0.0 per 100 WBCs LAB HEMATOLOGY METHOD 12/22/2024 4:15 AM EDT [facility] Blood Venous blood specimen / Unknown Venipuncture / Unknown 12/22/2024 3:36 AM EDT 12/22/2024 4:08 AM EDT Lenny Whitten [employer] LAB BLOOD ORDERABLES Final Result [facility] [address] [place] [address] * (ABNORMAL) BNP (12/21/2024 4:51 PM EDT) N-Terminal, PROBNP, Plasma 12,113(H) 0 - 899 pg/mL 12/21/2024 7:56 PM EDT [facility] Blood Venous blood specimen / Unknown 12/21/2024 4:51 PM EDT 12/21/2024 4:53 PM EDT us Yanet Arce MD LAB BLOOD ORDERABLES Final Re sult [facility] [address] [place] [address] * XR Chest 1 View (12/21/2024 4:51 PM EDT) Only the most recent of3 [...] MD on 12/21/2024 5:34 PM us Yanet Arce MD IMG XR PROCEDURES Final Resul t * Phosphorus (12/21/2024 4:51 PM EDT) Phosphorus, Plasma 3.0 2.5 - 4.5 mg/dL 12/21/2024 9:17 PM EDT [facility] Blood Venous blood specimen / Unknown 12/21/2024 4:51 PM EDT 12/21/2024 4:53 PM EDT us Lenny Prather Fish [employer] LAB BLOOD ORDERABLES Final Result [facility] [address] [place] [address] * VAS US Venous Duplex Upper Extremity [...] (ABNORMAL) POCT glucose (12/06/2024 11:42 AM EDT) [facility] POCT Glucose 39(A) 74 - 99 mg/dL [facility] Test Strip Lot Number [id number] [facility] Test Strip Expiration 01/25/2026 [facility] Blood Venous blood specimen / Unknown 12/06/2024 11:42 AM EDT us Alisa Kunz DO POINT OF CARE TEST ENTER/EDIT ORDERABLES Final Result [facility] [address] [place] [address] * (ABNORMAL) Basic metabolic panel (11/29/2024 4:00 AM EDT) Only the most recent of5 resultswithin the time period is included. [facility] Glucose, Plasma 130(H) 74 - 99 mg/dL 11/29/2024 4:57 AM EDT [facility] BUN, Plasma 14 8 - 23 mg/dL 11/29/2024 4:57 AM EDT [facility] Creatinine, Plasma 0.88 0.60 - 1.10 mg/dL 11/29/2024 4:57 AM EDT [facility] BUN/Creatinine Ratio 16 11/29/2024 4:57 AM EDT [facility] Sodium, Plasma 137 136 - 145 mmol/L 11/29/2024 4:57 AM EDT [facility] Potassium, Plasma 3.7 3.6 - 4.9 mmol/L 11/29/2024 4:57 AM EDT [facility] Chloride, Plasma 95(L) 97 - 107 mmol/L 11/29/2024 4:57 AM EDT [facility] CO2, Plasma 31(H) 22 - 29 mmol/L 11/29/2024 4:57 AM EDT [facility] Anion Gap 11 6 - 16 mmol/L 11/29/2024 4:57 AM EDT [facility] Total Calcium, Plasma 8.3(L) 8.9 - 10.2 mg/dL 11/29/2024 4:57 AM EDT [facility] eGFRcr 69.5 mL/min/1.7 3m*2 11/29/2024 4:57 AM EDT [facility] Comment:Reported eGFRcr in m L/min/1.73m2 is based the CKD-EPI 2020 equation that does not use a race coefficient. Blood Venous blood specimen / Unknown Venipuncture / Unknown 11/29/2024 4:00 AM EDT 11/29/2024 4:31 AM EDT us Cirilo Majano MD LAB BLOOD ORDERABLES Final R esult [facility] [address] [place] [address] * Blood Culture (Aerobic/Anaerobet Set) (11/25/2024 4:42 PM EDT) Culture No growth at day 5 OLIVIER 11/30/2024 6:01 PM EDT [facility] Blood Venous blood specimen / Unknown Venipuncture / Unknown 11/25/2024 4:42 PM EDT 11/25/2024 5:04 PM EDT Cirilo Majano MD LAB MICROBIOLOGY - GENERAL O RDERABLES Final Result Performing Organization Address [facility] [place] [address] * Methicillin Resistant Staphylococcus aureus (MRSA) by PCR (11/25/2024 11:47 AM EDT) Methicillin Resistant Staphylococcus aureus (MRSA) by PCR Not Detected Not Detected 11/25/2024 1:48 PM EDT [facility] Swab Both anterior nares / Unknown Non-blood Collection / Unknown 11/25/2024 11:47 AM EDT 11/25/2024 12:09 PM EDT Narrative [facility] - 11/25/2024 1:48 PM EDT This test is FDA approved for use with nares swab specimens using the eSwabs. This test is used for clinical purposes. It should not be regarded as investigational or for research. This laboratory is certified under the Clinical Laboratory improvement Amendments of 1988 (CLIA-88 as qualified to perform high complexity clinical laboratory testing. Cirilo Majano MD LAB MICROBIOLOGY - GENERAL O RDERABLES Final Result Performing Organization Address [facility] de Phone Number [address] [address] * (ABNORMAL) Procalcitonin (11/25/2024 8:45 AM EDT) Only the most recent of2 resultswithin the time period is included. Procalcitonin, Plasma 1.53(H) <0.09 ng/mL 11/25/2024 9:48 AM EDT [facility] Blood Venous blood specimen / Unknown Venipuncture / Unknown 11/25/2024 8:45 AM EDT 11/25/2024 9:11 AM EDT Narrative [facility] - 11/25/2024 9:48 AM EDT [...] predict 28 day mortality risk. Please consult [email or web address]-cgf-iiurrgiauj.[employer] Rover for more information. Test performed at [facility]. us Cirilo Majano MD LAB BLOOD ORDERABLES Final R esult [facility] [address] [place] [address] * CT Chest w IV Contrast (11/25/2024 [...] spine. There is wedge compression deformity of [id number] body with loss of approximately 50% of [...] IMG CT PROCEDURES Final Resu lt * Urine Culture (11/24/2024 4:18 PM EDT) Culture 10,000 - 100,000 CFU/mL Mixed urogenital, fecal, or skin karl present. 11/25/2024 12:32 PM EDT [facility] Urine Urine specimen obtained by clean catch procedure / Unknown Non-blood Collection / Unknown 11/24/2024 4:18 PM EDT 11/24/2024 4:46 PM EDT us Cirilo Majano MD LAB MICROBIOLOGY - GENERAL O RDERABLES Final Result [facility] [address] [place] [address] * (ABNORMAL) Respiratory Culture and Gram Stain (11/24/2024 4:17 PM EDT) Culture Heavy Growth 11/26/2024 1:24 PM EDT [facility] Culture Enterobacter cloacae complex(A) OLIVIER 11/26/2024 1:24 PM EDT [facility] Comment: This isolate has been identified using the FDA Approved beStylish.comyper [place] System The organism value for this result has been updated. These results have been appended to the previously preliminary verified report. Gram Stain Result Fewer than 10 Epithelial cells/LPF(A) 11/26/2024 1:24 PM EDT [facility] Gram Stain Result Greater than 25 WBC/LPF(A) 11/26/2024 1:24 PM EDT [facility] Gram Stain Result Numerous Gram negative rods(A) 11/26/2024 1:24 PM EDT [facility] Gram Stain Result Rare Gram positive cocci in pairs and chains(A) 11/26/2024 1:24 PM EDT [facility] Sputum Coughed sputum specimen / [...] MICROBIOLOGY - GENERAL O RDERABLES Final Result [facility] [address] [place] [address] * FL Modified Barium Swallow (11/23/2024 1:30 [...] with and without a chin tuck maneuver. Welby consistency (IDDSI 2): There is silent aspiration [...] teaspoonwith and without a chin tuck maneuver. Welby consistency (IDDSI 2): There is silent aspiration [...] Kvng Ribeiro MD on 11/23/2024 4:34 PM us Cirilo Majano MD IMG FLUOROSCOPY PROCEDURES F inal Result * EEG (11/22/2024 1:41 PM EDT) Anatomical Region Laterality Modality EEG Narrative 11/23/2024 1:23 AM EDT Table formatting from the original result was not included. Electroencephalogram Report Patient: Michelle Felipe : 1950 SEX: female Referring Provider: Junito Subramanian MD EEG Reading Physician: Alf Coronado MD Study Type: R-IP Begin Date: 11/22/2024 Begin Time: 1:20 PM End Date: 11/22/2024 End Time: 1:41 PM Total EEG Recording Time: 21 minutes Indication for study: Concern for seizures SEIZURE HISTORY: Medications: Current Medications[1] ROUTINE-EEG MONITORING METHODOLOGY: This is a routine EEG with monitoring using 21-channel recordings (unless otherwise specified) in a 10/20 system with [employer] software and hardware. Video was available for [...] events recorded. Alf Coronado M.D. Staff Epileptologist [phone] [1] No current facility-administered medications for this visit. No current outpatient medications on file. Facility-Administered Medications Ordered in Other Visits Medication Dose Route Frequency Provider Last Rate Last Admin acetylcysteine (Mucomyst) 20 % solution 4 mL 4 mL Nebulization q6h MELLY Andra Moscoso MD 4 mL at 11/22/24 0832 albuterol (Proventil) (2.5 MG/3ML) 0.083% nebulizer solution 2.5 mg 2.5 mg Nebulization q6h Gricelda Harvey MD 2.5 mg at 11/22/24 0832 albuterol (Proventil) (2.5 MG/3ML) 0.083% nebulizer solution 2.5 mg 2.5 mg Nebulization q6h PRN Junito Subramanian MD atorvastatin (Lipitor) tablet 40 mg 40 mg Nasogastric Nightly Zenon Caal MBBS brimonidine (AlphaGAN P) 0.2 % ophthalmic solution 1 drop 1 drop Both Eyes Nightly Babs Alvarez MD 1 drop at 11/21/242019 calcium-vitamin D 500-200 MG-UNIT per tablet 1 tablet 1 tablet Nasogastric Daily Babs Alvarez MD 1 tablet at 11/22/24 1214 cetirizine (ZyrTEC) tablet 10 mg 10 mg Nasogastric Nightly Babs Alvarez MD glucose (Glutose) 40 % oral gel 15-30 grams of glucose 15-30 grams of glucose Sublingual q15 min PRN Zenon Caal MBBS Or dextrose 10 % (D10W) bolus 125 mL 125 mL Intravenous q15 min PRN Zenon Caal MBBS Or dextrose 10 % (D10W) bolus 250 mL 250 mL Intravenous q15 min PRN Zenon Caal MBBS Or glucagon (human recombinant) injection 1 mg 1 mg Intramuscular q15 min PRN Zenon Caal MBBS ezetimibe (Zetia) tablet 10 mg 10 mg Nasogastric Daily Babs Alvarez MD 10 mg at 11/22/24 1214 furosemide (Lasix) tablet 80 mg 80 mg Nasogastric Daily Gricelda Harvey MD 80 mg at 11/22/24 1214 gabapentin (Neurontin) capsule 600 mg 600 mg Nasogastric BID Junito Subramanian MD 600 mg at 11/22/24 1214 hydrALAZINE (Apresoline) injection 10 mg 10 mg Intravenous q1h PRN Zenon Caal MBBS Or hydrALAZINE (Apresoline) injection 20 mg 20 mg Intravenous q1h PRN Zenon Caal MBBS hydroxychloroquine (Plaquenil) tablet 200 mg 200 mg Nasogastric Nightly Babs Alvarez MD insulin regular (HumuLIN R,NovoLIN R) 100 units/mL injection - Correction - Resistant Dose 0-10 Units Subcutaneous q6h MELLY Babs Alvarez MD labetalol (Normodyne,Trandate) injection 10 mg 10 mg Intravenous q1h PRN Zenon Caal MBBS Or labetalol (Normodyne,Trandate) injection 20 mg 20 mg Intravenous q1h PRN Zenon Caal MBBS latanoprost (Xalatan) 0.005 % ophthalmic solution 1 drop 1 drop Both Eyes Nightly Babs Alvarez MD 1 drop at 11/21/242019 levothyroxine (Synthroid, Levoxyl) tablet 125 mcg 125 mcg Nasogastric Daily with breakfast Babs Alvarez MD 125 mcg at 11/22/24 1214 metoprolol tartrate (Lopressor) tablet 25 mg 25 mg Nasogastric BID Cirilo Majano MD Tiotropium Ingram Monohydrate (Spiriva Respimat) 2.5 MCG/ACT inhaler 2 puff 2 puff Inhalation Daily Babs Alvarez MD 2 puff at 11/22/24 1213 And mometasone-formoterol (Dulera 100) 100-5 MCG/ACT inhaler 2 puff 2 puff Inhalation BID Babs Alvarez MD 2 puff at 11/22/24 1213 mycophenolate (Cellcept) 200 MG/ML suspension 1,000 mg 1,000 mg Nasogastric BID Junito Subramanian MD 1,000 mg at 11/22/24 1215 nitroglycerin (Nitrostat) SL tablet 0.4 mg 0.4 mg Sublingual q5 min PRN Babs Alvarez MD senna-docusate (Karyn-Colace) 8.6-50 MG per tablet 1 tablet 1 tablet Nasogastric BID Cirilo Majano MD sodium chloride 0.9 % flush 10 mL 10 mL Intravenous q12h Zenon Caal MBBS 10 mL at 11/21/24 1322 And sodium chloride 0.9 % flush 10 mL 10 mL Intravenous PRN Zenon Caal MBBS warfarin (Coumadin) tablet 5 mg 5 mg Nasogastric Once per day on Friday Junito Subramanian MD [START ON 11/23/2024] warfarin (Coumadin) tablet 7.5 mg 7.5 mg Nasogastric Every Friday Junito Subramanian MD Junito Subramanian MD NEUROLOGY ORDERABLES Final Re sult * PERIPHERAL IV (SMARTFORM LINK) (11/22/2024 10:02 AM EDT) Narrative Aelx Grewal RN - 11/22/2024 10:02 AM EDT Alex Grewal RN 11/22/2024 10:03 AM Insert peripheral IV Performed by: Alex Grewal [...] MD IV THERAPY ORDERABLES Final Result * XR Abdomen 1 View (11/21/2024 5:45 [...] of the abdomen. COMPARISON: None. FINDINGS: Limited qrygy-yz-qify abdominal radiograph for the purpose of locating tube position. The enteric tube loops in the midabdomen with the tip in the left upper quadrant. Procedure Note Shanti Quintero MD - 11/21/2024 CLINICAL INDICATION: Confirm proper placement of NG tube TECHNIQUE: Supine radiograph of the abdomen. COMPARISON: None. FINDINGS: Limited knkly-gt-yedx abdominal radiograph for the purpose of locatingtube [...] Shanti Quintero MD on 11/21/2024 7:17 PM us Junito Subramanian MD IMG XR PROCEDURES Final Resul t * ECHO, ADULT TRANSTHORACIC COMPLETE W/ CONTRAST (11/21/2024 10:42 AM EDT) BSA 1.56 m2 DARI ISCV Height 162.6 [...] mean PAP 48 mmHg DARI ISCV PA MT(ACCEL) 47.3 mmHg DARI ISCV PA acc slope [...] cm/s2 DARI ISCV LVOT diam 18 mm DRAI ISCV LVOT AREA 2.5 cm2 DARI ISCV [...] is no recent study available for direct rvpo-qj-lgbl comparison. Left Ventricle The left ventricle is [...] is no recent study available for direct jrgi-vw-ylvt comparison. Wall Scoring Baseline Score Index: 1.47 The following segments are hypokinetic: basal anterior, basal inferoseptal, basal inferior, basal inferolateral, basal anterolateral, mid inferoseptal, mid inferior and mid anterolateral. All other segments are normal. Everette Colon MD CV ECHO PROCEDURES Final R esult * Lipid panel (11/21/2024 3:11 AM EDT) Cholesterol, Plasma 95 <200 mg/dL 11/21/2024 4:39 AM EDT [facility] Comment: Cholesterol Reference Range (age >17 years): Desirable <200 mg/dL Borderline 200 to 239 mg/dL Undesirable >239 mg/dL HDL 50 >=50 mg/dL 11/21/2024 4:39 AM EDT [facility] Comment: HDL Cholesterol Reference Ranges (age >17 years): Female, acceptable > or = 50 mg/dL Male, acceptable > or = 40 mg/dL Triglycerides, Plasma 65 <150 mg/dL 11/21/2024 4:39 AM EDT [facility] Comment: Triglyceride Reference Range (age >17 years): Desirable: <150 mg/dL Borderline high: 150 to 199 mg/dL High: 200 to 499 mg/dL Very high: >499 mg/dL Increased risk of pancreatitis: >1000 mg/dL Cholesterol/HDL Ratio 2 11/21/2024 4:39 AM EDT [facility] LDL, Calculated 31 <100 mg/dL 4:39 AM EDT [facility] Comment: LDL Cholesterol Reference Range [...] 12 hours? Yes 11/21/2024 4:39 AM EDT [facility] Blood Venous blood specimen / Unknown Venipuncture / Unknown 11/21/2024 3:11 AM EDT 11/21/2024 3:20 AM EDT Everette Colon MD LAB BLOOD ORDERABLES Final Result [facility] [address] [place] [address] * TSH (11/20/2024 2:28 PM EDT) Thyroid Stimulating Hormone, Plasma 3.30 0.40 - 4.20 uIU/mL 11/20/2024 3:08 PM EDT [facility] Blood Venous blood specimen / Unknown Venipuncture / Unknown 11/20/2024 2:28 PM EDT 11/20/2024 2:29 PM EDT Everette Colon MD LAB BLOOD ORDERABLES Final Result Performing Organization Address City/[facility]/ZIP Co de Phone Number [facility] [address] [place] [address] * (ABNORMAL) Hemoglobin A1c (11/20/2024 2:28 PM EDT) Hemoglobin A1c 8.7(H) <5.7 % 11/21/2024 8:15 PM EDT [facility] Blood Venous blood specimen / Unknown Venipuncture / Unknown 11/20/2024 2:28 PM EDT 11/20/2024 2:37 PM EDT Narrative [facility] - 11/21/2024 8:15 PM EDT [facility] Interpretive Data: Diagnosis of Diabetes: Diabetic > or = 6.5% Pre-diabetic 5.7 to 6.4% Non-diabetic < or = 5.6% Glycemic Targets for Type I and Type II Diabetics: Non- Adults <7.0% Adults <6.0% Children and Adolescents <7.5% Source: [place] [employer]. Standards of medical care in diabetes,2017. Diabetes Care.2017:40 (suppl 1):S1-S135. Everette Colon MD LAB BLOOD ORDERABLES Final Result Performing Organization Address [facility] Co de Phone Number [facility] [address] [place] [address] * XR Chest 2 Views (10/14/2024 12:19 [...] MD IMG XR PROCEDURES Final Result * Hepatitis C Antibody - ED (01/29/2024 3:32 PM EST) Hepatitis C Antibody Negative Negative 01/29/2024 5:07 PM EST [facility] Blood Venous blood specimen / Unknown Venipuncture / Unknown 01/29/2024 3:32 PM EST 01/29/2024 4:03 PM EST Fortino Ball MD LAB BLOOD ORDERABLES Final Result [facility] [address] [place] [address] * Dexa Bone Density (01/10/2023 10:23 AM EDT) Anatomical Region Laterality Modality L-spine Radiographic Elissa ging Narrative 01/12/2023 8:29 AM EST [facility] - Nephrology, Bone & Mineral Metabolism [address] [address], [place] [address] DXA Bone Densitometry Report: [01/10/2023] Subjective BMD test performed using the [employer] DXA System (analysis version: 14.10) manufactured by [facility]. REFERRING PROVIDER: Alisa Ortega, DO CLINICAL INFORMATION: osteoporosis PATIENT NAME: Michelle [...] 04/19/2015 Mammography Breast Screening Tomosynthesis Bilateral at [facility] 05/06/2017 Mammography Breast Screening Tomosynthesis Bilateral at [facility] 01/25/2020 Mammography Breast Screening Tomosynthesis Bilateral at [facility] BREAST COMPOSITION: The breasts are heterogeneously dense, which may obscure small masses. FINDINGS: There are post-biopsy clip(s) present in the the right breast. There is no evidence of suspicious masses, calcifications, or other abnormal findings. us Jackson Malave MD IMG BI PROCEDURES Final Re sult from Last 3 Months or Most Recently Relevant to Health Maintenance Insurance Advance Directives * DNR/DNI (Latest Code Status on File) Date Activated Date Inactivated Comments 12/21/2024 9:29 PM 12/23/2024 4:10 PM Question Answer Comments DNR determined on/before admission date? Yes I have reviewed the capacity from the link above and, if needed, have updated to appropriate status: Yes * Full Code Date Activated Date Inactivated Comments 11/22/2024 6:19 PM 11/29/2024 6:33 PM Question Answer Comments I have reviewed the capacity from the link above and, if needed, have updated to appropriate status: Yes * Full Code Date Activated Date Inactivated Comments 09/09/2024 6:52 [...] needed, have updated to appropriate status: Yes Care Teams Specimen Preparation Assistant Relationship Specialty Start Date End Date Alisa Kunz DO [address] [place] [address] PCP - General Internal Medicine 12/07/24 Alisa Kunz DO [address] [place] [address] Internal Medicine 11/21/23 Kodi Bustos DO [address] [address] Surgeon Cardiothoracic Surgery 11/06/22 Sujit Arriola MD [address] [place] [address] Consulting Physician Pulmonary Disease 11/06/22 Sujit Reyes MD [address] [place] [address] Referring Physician 12/04/22 Zee Lazar DO [address] [place], [place] [id number] Resident 09/08/24 Fili Morley III, RN [address] [facility], [address] [place] [address] Graves Registration Specialist 12/22/24 01/05/25
--- OUTSIDE RECORDS SUMMARY | 2025-01-05 15:53 | XMS_ITS ---
Author Organization [facility] Address [address] [place] [address] Care Team Providers Care Roofer Helper Name Role Phone Alisa Kunz DO Unavailable [phone] Kodi Bustos DO Unavailable [phone] Sujit Arriola MD Unavailable [phone] Sujit Reyes MD Unavailable [phone] Zee Lazar DO Unavailable [phone] Alisa Kunz DO Primary Care Provider [phone] Milli KELLEY RN, Fili Noonan Unavailable [phone] Transitional Care Management Status:Closed (Closed) Start date:12/24/2024 Enrollment date:12/24/2024 End date:12/24/2024 Close reason:Patient graduated Overview This episode type is for outpatient care managers enrolling patients in the [facility] Transitional Care Management program. Continued Care and Services Coordination
--- OUTSIDE RECORDS SUMMARY | 2025-01-05 15:53 | XMS_ITS | Encounter Summary ---
Author Organization [facility] Address [address] [place] [address] Care Team Providers Care Re Dye Hand Name Role Phone Alisa Kunz DO Unavailable [phone] Kodi Bustos DO Unavailable [phone] Sujit Arriola MD Unavailable [phone] Sujit Reyes MD Unavailable [phone] Zee Lazar DO Unavailable [phone] Alisa Kuzn DO Primary Care Provider [phone] Milli KELLEY RN, Fili Noonan Unavailable [phone] Encounter Details Date Type Department Care Team (Late st Contact Info) Description 12/30/2024 Telephone [facility] Women's Health [address] [place] [address] Madison Atwood, RN Social History Tobacco Use Types Packs/Day Years [...] Recorded Patient Health Questionnaire-2 Score 2 12/27/2024 [facility] of Occupat ional [...] in a custodial (including now)? 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 Thank you! ----- Message ----- From: Fili Morley III, RN Sent: 12/24/2024 1:35 PM EDT To: Alisa Kunz DO; [facility] Internal Medicine# Subject: Nausea Hey Dr. Kunz, Just spoke with the daughter of Mrs. Felipe for a TCM outreach. Patient was noted to be feeling worse overall since discharge yesterday. Noted today she feels weaker, more tired, and very nauseas. The daughter requested if it would be possible to get something for this nausea. When your able to review, please advise. I plan to f/u with them over the next 30-90 days with HRCM (high risk care management), so if there is anything else I can relay, please let me know. Thank you, Will Milli JAMA HRCM documented in this encounter Plan of Treatment Upcoming Encounters Date Type Department Care Team (Late st Contact Info) Description 01/06/2025 2:00 PM EDT Office Visit [facility] Medicine Specialties [address] [place] [address] Lavern Shoemaker MD [address] [place] [address] 01/12/2025 1:10 PM EST Office Visit [facility] Medicine Specialties [address] [place] [address] Noris Yee MD [address] [place] [address] 01/12/2025 2:00 PM EST Office Visit Inter[facility] Pain Medicine [address] [place] [address] Ezra Fine MD [address] [place] [address] 01/27/2025 10:00 AM EST Office Visit [facility] [address] [place] [address] Sujit Cole, AMBULANCE ATTENDANT [address] [place] [address] 02/02/2025 8:40 AM EST Office Visit [facility] Internal Medicine [address] [place] [phone] Alisa Kunz, DO [address] [place] [address] 02/09/2025 12:20 PM EST Office Visit [facility] Endocrinology [address] [place] [phone] Anne-Marie Klob, AMBULANCE ATTENDANT [address] [place] [address] 04/18/2025 2:40 PM EST Office Visit [facility] Endocrinology [address] [place] [address] Anne-Marie Kolb L, AMBULANCE ATTENDANT [address] [facility] [address] [place] [address] documented as of this encounter [...] documented as of this encounter Care Teams Re Dye Hand Relationship Specialty Start Date End Date Alisa Kunz DO [address] [place] [phone] PCP - General Internal Medicine 12/07/24 Alisa Kunz DO [address] [place] [phone] Internal Medicine 11/21/23 Kodi Bustos DO [address] [place] [phone] Surgeon Cardiothoracic Surgery 11/06/22 Sujit Arriola MD [address] [place] [address] Consulting Physician Pulmonary Disease 11/06/22 Sujit Reyes MD [address] [place] [address] Referring Physician 12/04/22 Zee Lazar DO [address] [place] [id number] Resident 09/08/24 Fili Morley III, RN [address] [facility], [address] [place] [address] Nib Inspector 12/22/24 01/05/25 documented as of this encounter
--- OUTSIDE RECORDS SUMMARY | 2025-01-05 15:53 | XMS_ITS | Data Portability ---
Author Organization [facility] CLAUDE [facility] [facility] Address [address] [place] [address] Care Team Providers Care Ccna Name Role Phone GILLES COOPER Strategic Debriefing Officer BRUCE SIEGEL Primary Care Provider VETO MONTESINOS Arc Welding Machine Operator Assessment No assessment recorded. Plan of Treatment Reminders Order Date Submit Date Provider Last Modified By Organization Details Last Modified Time Details Appointments LEVEL 2 2025 01:15P Sanjuana COOPER MD Not available Not available Not available Lab jas wet prep 2024 025 [facility], [address] [place] [address], [phone], 07/05/2024 15:58:20 surgical pathology study 2024 025 [facility], [address] [place] [address], [phone], 07/06/2024 10:48:12 Referral None recorded. Procedures None recorded. Surgeries None recorded. Imaging None recorded. Medication Orders clobetaso l 0.05 % topical ointment 2024 025 [facility], [address], [phone], 07/05/2024 15:58:20 Patient TargetsNo targets recorded. Patient InstructionsNo instructions recorded. Reason for Referral None Reported. Results Created Date Observation Date Name Description Value Unit Range Abnormal Flag Note LastModifiedBy Organization Detail LastModifiedTime 07/06/19 25 07/05/2024 SURGI AGAPITO surgical SEE BELOW Jovista topat holog y Netta t NAME: GUS ROMERO PATH: [id number] [...] Out Date: 07/06 10:47 1 Not Available [facility] [address] [place], [address], 07/06/2024 10:48:11 07/06/19 25 07/05/2024 jas wet prep JAS Prep negati ve Not Available [facility] [address] [place], [address], 07/05/2024 12:13:43 03/23/19 25 03/23/2024 optic al [...] Organization Details Recorded Time Secondary diabetes mellitus 5199225 Active 2015 From Automated Load;Provi oscar: Yong Zhu;Statu s: Active Not Available [facility] 6 03:07:23 Excess skin of eyelid 929898099 Active 2015 From Automated Load;Provi oscar: Yong Zhu;Statu s: Active Not Available [facility] 6 03:07:23 Tear film insuffici ency 96039931 Active 2015 From Automated Load;Provi oscar: Yong Zhu;Statu s: Active Not Available [facility] 6 03:07:23 Retinopat hy due to type 1 diabetes mellitus 386102093 Active 2015 From Automated Load;Provi oscar: Yong Zhu;Statu s: Active Not Available [facility] 6 03:07:23 Heart failure 59352898 Active 2024 Kyala Suresh [facility] 5 12:01:23 Systemic lupus erythemat osus 61396562 Active 2024 [place] Suresh [facility] 5 12:01:50 Type 1 diabetes mellitus 85147881 Active 2024 [place] Suresh [facility] 5 12:02:02 Problem Notes None recorded. Procedures Surgical History Date Name Laterality Status Provider Name and Address Organization Details Recorded Time DAK - Cryo AK completed Mike Arnold [facility] 09/30/2024 13:02:38 OCT/Retina completed GILLES COOPER MD [address] [place] [address], [phone], [facility] 09/23/2024 15:15:57 025 thoracentesis completed Corky Powell [facility] 09/30/2024 12:49:02 025 DAK - Cryo AK completed Kayla Prince [facility] 07/05/2024 12:20:10 025 DAK - Biopsy, Tangential completed Kayla Prince [facility] 07/05/2024 12:09:54 025 OCT/Nerve completed GILLES COOPER MD [address] [place] [address], [phone], [facility] 03/23/2024 17:00:49 024 DAK - Cryo AK completed Kayla Prince [facility] 10/30/2023 14:05:21 024 DAK - Biopsy, Tangential completed Kaylaelyssa Prince [facility] 10/30/2023 14:09:15 024 Visual Field Extended completed GILLES COOPER MD [address] [place] [address], [phone], [facility] 06/16/2023 14:49:13 024 OCT/Retina completed GILLES COOPER MD [address] [place] [address], [phone], [facility] 04/16/2023 14:09:44 023 OCT/Nerve completed GILLES COOPER MD [address] [place] [address], [address], [facility] 01/06/2023 09:15:48 023 OCT/Retina completed GILLES COOPER MD [address] [place] [address], [address], [facility] 01/06/2023 09:15:41 023 biopsy of lung completed Gilles Nayak [facility] 01/06/2023 08:27:56 023 Visual Field Extended completed GILLES COOPER MD [address] [place] [address], [address], [facility] 05/14/2022 14:44:47 022 OCT/Retina completed GILLES COOPER MD [address] [place] [address], [phone], [facility] 10/08/2021 16:44:46 022 OCT/Nerve completed GILLES COOPER MD [address] [place] [address], [address], [facility] 05/24/2021 16:40:05 022 OCT/Retina completed GILLES COOPER MD [address] [place] [address], [address], [facility] 05/24/2021 16:40:06 021 Visual Field Extended completed GILLES COOPER MD [address] [place] [address], [address], [facility] 11/22/2020 16:17:23 021 OCT/Nerve completed GILLES COOPER MD [address] [place] [address], [phone], [facility] 08/17/2020 13:57:05 017 Cystourethroscopy completed Tia Hall [facility] 08/28/2016 14:44:58 017 Post Void Residual; Ultrasound completed Radha Herron [facility] 07/24/2016 16:36:07 Imaging Results None recorded. Procedure Notes None recorded. Medical Equipment None Reported. Allergies Allergen ID Allergen Name Allergen Category Reaction Reaction Severity Criticality Documentation Date Start Date Code Code System Note Provider Name and Address Organization Details Recorded Time 142052 morphine sulfate medicatio n Not available Not available Not available 02/01/20162012 51121 RxNorm Comme nt: Creat ed By: Trav Morales; Paula ed Date: 2012 3:45: 55 PM; Not Available [facility] 6 12:01:18 570195 tetracycl ine hydrochlo ride medicatio n Not available Not available Not available 02/01/20162015 05599 6 RxNorm Comme nt: Creat ed By: Muna graves Date: 2015 1:56: 37 PM; Not Available [facility] 6 12:01:18 180550 morphine sulfate medicatio n other Not available Not available 02/02/20162008 23211 RxNorm React ion: OTHER ; Comme nt: Creat ed By: Donn Do ely Date: 009 10:16 :46 AM; Not Available [facility] 6 08:25:26 596290 Keflex medicatio n Not available Not available Not available 08/16/201973297 7 RxNorm Nilam Johnie [facility] 0 14:21:12 576423 Product containin g penicilli n (product) medicatio n rash Not available Not available 05/24/2021 71759 8001 SNOMED David Maribel cuellar [facility] 2 15:50:09 234090 Crestor medicatio n Not available Not available Not available 10/08/2021 64031 4 RxNorm Yamel Wild [facility] 2 15:39:18 422107 rosuvasta tin medicatio n Not available Not available Not available 10/08/2021 60061 2 RxNorm Yamel Wild [facility] 2 15:39:36 Medications Name Sig Start [...] Tobacco Smoking Status Never Smoker Esperanza Day [facility] 06/26/2016 15:31:37 How Much Tobacco Do You Chew? None [email or web address] Information not available 09/30/2016 What Was The Date Of Your Most Recent Tobacco Screening? 12/29/2023 [email or web address] Information not available 12/29/2023 Has Tobacco Cessation Counseling Been Provided? No [email or web address] Information not available 09/30/2016 Sex: Female Functional Status Question Answer Note LastModified by Organization D etails LastModified Time What is your level of alcohol consumption? Moderate [email or web address] Information not available 09/30/2016 Mental Status None recorded. Family History Relationship Description Onset Age of this Age Resolved Age Notes LastModified by Organization Details LastModified Time Father Arthritis [email or web address] Not avail able 09/30/2016 13:26:28 Notes:1. Heart disease MOTHE R and grandparents 2. Hypertension mother 3. Acute myocardial infarction gfth 4. Stroke syndrome mth 5. Droopy Eyelid gmth Medical History Condition Response Emphysema N Glaucoma N Depression Y COPD N Diabetic Eye Disease Y Anemia Y Heart Attack (CT) Y Diabetes Y Bleeding Disorder N Arthritis [...] Diagnosis SNOMED-CT Code Diagnosis ICD10 Code Diagnosis IMO Codes Diagnosis Note [id number] YONG ZHU MD OPHTHALMO LOGY [address] [place] [address] 06/26/2016 14:57:47 06/28/2016 08:27:08 Proliferative retinopathy due to diabetes mellitus 07589907 E13.3593 Epiretinal membrane 3676 77626 H35.373 Bilateral pseudophakia 0316408247 9477992 Z96.1 bilateral Type 1 albino betes mellitus 85582462 E10.236 [id number] MD JOSEPH FUNG [facility] [address] [place] [address] 07/24/2016 15:44:15 07/24/2016 16:45:12 Delay when starting to pass urine 2184376 R39.11 we discussedc onsiderati on of cystoscopy with possible urethral dilation. Thus just we perform this under sedation. We will arrange for this later this month. Retention of urine 84056 4002 R33.9 Microscopic hematuria 19 6162156 R31.21 [id number] TONY LYNN MD SURGERY SCHEDULE [address] [place] [address] 08/07/2016 07:54:29 08/07/2016 07:57:18 [id number] MD [facility]SEPH [facility] [address] [place] [address] 08/28/2016 13:38:12 08/30/2016 15:09:08 Urethral stenosis 604836314 N35.9 Perimenopa usal atrophic vaginitis 690789960 N95.2 She will try Estrace cream if economical ly feasible. She will follow-up with me in 3-4 months and Karen [id number] CHRIS ROCHA APRN RHEUMATOL OGJolene [address] [place] [address] 09/30/2016 13:13:19 10/01/2016 10:18:02 Anti-nuclear factor detected 255993393 R76.8 66 year old female presents with [...] will have her follow up accordinglee pena. [id number] CHRIS ROCHA APRN RHEUMATOL INEZ [address] [place] [address] 01/31/2017 15:37:06 01/31/2017 16:35:06 Anti-nuclear factor detected 654058475 R76.8 Patient complains of fatigue, joint pains, [...] clinically monitor.Alexys jameson offered reassuranc e today. [id number] KATHI LOPEZ MD NEUROSURG [facility] [address] [place] [address] 05/12/2017 13:25:54 05/12/2017 14:32:04 Spondylolisthesis 643156386 M43.10 Minutes spent reviewing images, discussing the diagnosis and coordinati ng care: 30 min [id number] YONG ZHU MD OPHTHALMO RIC[facility] [place] [address] [place] [address] 08/12/2017 13:35:44 08/13/2017 09:21:54 Type 1 diabetes mellitus 49292890 E10.319 Quiescent proliferative retinopathy due to diabetes mellitus 886454198 E11.3599 Bilateral pseudophakia 5649310427 1004854 Z96.1 bilateral Secondary glaucoma 51483 004 H40.52X1 [id number] YONG ZHU MD OPHTHALMO RICKEY [address] [place] [address] 5 01/22/2018 15:08:21 01/23/2018 10:13:59 Primary open angle glaucoma 74843274 H40.1131 Type 1 albino betes mellitus 85524291 E10.37X1 ou Myopic astigmatism 11278 4005 H52.209 Presbyopia 24709100 H52. 4 Bilateral pseudophakia 7941990751 7874348 Z96.1 bilateral Non-high-r isk proliferative retinopathy with clinically significant macular edema due to diabetes mellitus 589500767 E11.3519 [id number] YONG ZHU MD OPHTHALMO RIC[facility] [place] [address] [place] [address] 05/21/2018 15:40:26 05/22/2018 11:49:46 Primary open angle glaucoma 08472898 H40.1131 Type 1 albino betes mellitus 89684723 E10.37X1 ou Quiescent proliferative retinopathy due to diabetes mellitus 981545882 E11.3599 Macular ed merlyn due to diabetes mellitus 277363915 E11.132 [id number] YONG ZHU MD OPHTHALMO R[facility] [place] [address] [place] [address] 10/08/2018 12:53:43 10/09/2018 11:51:53 Primary open angle glaucoma 19728884 H40.1131 Bilateral pseudophakia 3847725145 8392246 Z96.1 bilateral Proliferat steven retinopathy due to type 1 diabetes mellitus 7645301941 9101 E10.3599 bilateral [id number] YONG ZHU MD OPHTHALMO LOGY [address] [place] [address] 08/16/2019 14:02:22 08/17/2019 15:46:45 Type 1 diabetes mellitus 93874899 E10.37X1 ou High risk proliferative retinopathy without macular edema due to diabetes mellitus 485929701 E11.3599 ou Epiretinal membrane 3676 94318 H35.373 left Blurring o f visual image 785876365 H53.8 right [id number] YONG ZHU MD OPHTHALMO LOGY [address] [place], [place] [address] 02/14/2020 14:06:52 02/14/2020 16:15:31 Adverse reaction to drug 18037445 T50.905A Modafinil (simlar ti ritalin) Type 1 albino betes mellitus 08225028 E10.37X1 ou Proliferat steven retinopathy due to type 1 diabetes mellitus 4123445618 9101 E10.3599 bilateral Quiescent proliferative retinopathy due to diabetes mellitus 717159648 E11.3599 ou Bilateral pseudophakia 6776249171 8833204 Z96.1 bilateral Myopic astigmatism 67624 4005 H52.209 od Presbyopia 85964626 H52. 4 [id number] GILLES COOPER MD OPHTHALMO LOGY [address] [place] [address] 08/17/2020 12:36:13 08/17/2020 16:03:23 Primary open angle glaucoma 41104066 H40.1132 iop elevated today but pt not sure if got enough drop. states iop runs high teens usually rec continue latanopros t qhs ou baseline rnfl today shows sev thinning but cold be d/t PRP nerves appear okay ou rec 3 mo iop check, hvf - 10-2 (previous constricti on d/t prp) Pseudophakia 61952140 Z9 6.1 Proliferat steven retinopathy due to type 1 diabetes mellitus 5336182766 9101 E10.3599 continue to follow with TANESHA. [id number] GILLES COOPER MD OPHTHALMO LOGY [address] [place] [address] 11/22/2020 15:00:00 11/22/2020 16:18:12 Primary open angle glaucoma 28919369 H40.1132 iop better borderline oshvf today 10=2 relatively okay todayconti nue latanoprst qhs6 mo complete, rnfl [id number] GILLES COOPER MD OPHTHALMO LOGY [address] [place] [address] 05/24/2021 15:33:06 05/24/2021 16:45:49 Primary open angle glaucoma 77469467 H40.1132 iop better borderline os - stablernfl with stable thinning ou todayconti nue latanopros t qhs ou6 mo hvf 10-2 and iop check Proliferat steven retinopathy due to type 2 diabetes mellitus 1427908930 109 E11.3599 oct shows possible cysts today - rec f/u with TANESHA as scheudled [id number] GILLES COOPER MD OPHTHALMO LOGY [address] [place] [address] 10/08/2021 15:09:27 10/08/2021 16:47:33 Proliferative retinopathy due to type 2 diabetes mellitus 2155163380 109 E11.3599 oct shows conitnued cysts os - rec f/u with RAKod no swellingof fered mr today - no significan t changes Primary op en angle glaucoma 30689340 H40.1132 iop borderline f/u as scheudled for hvf 10-2 Corneal dystrophy 427069 4 H18.509 banding od - still not in vis axis but may be progressin g - obs for now, consider chelation in future [id number] GILLES COOPER MD OPHTHALMO LOGY [address] [place] [address] 05/01/2022 09:30:33 05/01/2022 12:07:24 Proliferative retinopathy due to type 2 diabetes mellitus 3101077898 109 E11.3599 continue f/u with TANESHA Primary op en angle glaucoma 22235845 H40.1132 needs hvf 10-2 on return Corneal dystrophy 858497 4 H18.509 banding od - still not in vis axis but may be progressin g - obs for now, consider chelation in future Conjunctivitis 4100070 H 10.013 one drop qid x2 weekswash handsdont share hygiene objects2 week conj check [id number] GILLES COOPER MD OPHTHALMO LOGY [address] [place] [address] 05/14/2022 13:34:14 05/14/2022 15:40:58 Primary open angle glaucoma 89536694 H40.1132 hvf 10-2 today stablecont inue latanopros tqhs ou6 mo complete, rnfl, oct mac Acute conj unctivitis caused by chemical 2946174840 23728 H10.213 resolved, obs for now [id number] GILLES COOPER MD OPHTHALMO LOGY [address] [place], [place] [address] 01/06/2023 07:51:36 01/06/2023 10:23:45 Long-term drug therapy 754630017 Z79.899 just started margaret - one pill/dayma x daily dose per body weight is 331mg/day - recommend stay under this dose.rec f/u with TANESHA for 2nd opinion given significan t diabetic eye diseasedis cussed risks of plaquenil usage and vision loss. Primary op en angle glaucoma 31168812 H40.1132 IOP good todayconti nue latanopros t qhs ouRnfl today shows thinning os>od6 mo iop check, hvf 10-2 Proliferat steven retinopathy due to type 2 diabetes mellitus 4546375971 109 E11.3599 continue f/u with RAKfew cystic changes on oct todayglc control recommende d. [id number] GILLES COOPER MD OPHTHALMO LOGY [address] [place] [address] 04/16/2023 12:56:15 04/16/2023 14:13:30 Proliferative retinopathy due to type 2 diabetes mellitus 5531458545 109 E11.3599 continue f/u with RAKoct today shows increased cme od - likely cause of subjective vis declinerec f/u with TANESHA for thisrec consider hand/stand magnifier Primary op en angle glaucoma 27912954 H40.1132 iop high today -rec compliance with dropsconti nue latanopros t qhs ourecheck iop 2 mo with hvf 10-2 Bilateral pseudophakia 9782545823 5400425 Z96.1 os has some phacodones is today - not sure if present previously - monitormay call back for lined bf Calcific b and keratopathy 632371622 H18.429 discussed chelation in future [id number] GILLES COOPER MD OPHTHALMO LOGY [address] [place] [address] 06/16/2023 13:49:36 06/16/2023 15:10:32 Primary open angle glaucoma 97929445 H40.1132 iop high today but betterrec add brimonidin e bid ou3 mo iop checkhvf today with defects ou - mild decline of md ourec f/u with TANESHA for eval retina/margaret quenil Long-term drug therapy 942927413 Z79.[address] started margaret - one pill/dayma x daily dose per body weight is 331mg/day - recommend stay under this dose.rec f/u with TANESHA for 2nd opinion given significan t diabetic eye diseasedis cussed risks of plaquenil usage and vision loss. [id number] GILLES COOPER MD OPHTHALMO LOGY [address] [place] [address] 09/22/2023 12:42:06 09/22/2023 13:28:26 Primary open angle glaucoma 19421272 H40.1132 iop continues to improvecon tinue latanopros t qhs ou, brimonidin e bid ourecheck 5 mo complete, rnfl Calcific b and keratopathy 811954074 H18.429 discussed with patientrec referral to Dr. Grimaldo for additional evaluation and possible tx as recent MR fails to significan tly improve things Proliferat steven retinopathy due to type 2 diabetes mellitus 1306373890 109 E11.3599 continue f/u with TANESHA [id number] GUERRERO TRAYLOR PA-C [place] [address] [place] [address] 10/30/2023 13:38:00 11/05/2023 12:42:41 Multiple benign melanocytic nevi 196026123 D22.5 I78.1 L82.1 L81.4 Benign appearing lesions.Co ntinue to monitor and follow-up with any or changing lesions.Re commend to wear SPF 30+ with zinc or titanium oxide cream daily. Prefers lotions/cr eams over sprays. Rec moisturisi ng with CeraVe or Cetaphil cream after showering Neoplasm o f uncertain behavior of skin 85288174 D48.5 Biopsy recommende d today.- Verbal consent [...] persists or do not resolve. Prurigo nodularis 356558 00 L28.1 Lean to PN.Try not to pick lesions. Discussed treatment with topical steroid.Rx sent for Clobetasol 0.05% cream to use BID for up to two weeks thn limit use to weekends onlyIf areas do not improve, can discuss treatment further Has scheduled appointmen t with Dr. Mccauley for further discussion Diabetic foot ulcer 3710 53111 E13.621 Patient sees sea air land officer for this lesion.Rec continuing care with sea air land officer .If not improving, please follow-up. [id number] OCTAVIA PICKERING MD [address] [address] 12/29/2023 15:41:57 12/29/2023 16:14:24 Senile purpura 25123853 D69.2 Thinning of the skin due to chronic sun damage. Makes bruising easier as blood vessels are closer the the surface.Re c using OTC CeraVe AM sunscreen on face daily.Rec moisturizi ng with OTC Cetaphil Cream daily.No overt rash today. Actinic damage and Sks noted. Squamous c ell carcinoma of upper extremity 226991839 C44.622 Bx on 11/03/2023 proven SCC on right handPath #: [id number]. She has Mohs scheduled 01/13/2024 .Advised to keep Mohs appointmen t. Seborrheic keratosis 394 839820 L82.1 Benign over growths of skin. Reassuranc e given. Wound of skin 632223468 T14.8XXA R wrist has focal desquamati on that is c/w with healing skin at this point. She does have f/u in Jan and can be reassessed if not resolved. [id number] LUIS GONG MD [address] [address] 01/13/2024 07:37:44 01/16/2024 11:06:31 [id number] GILLES COOPER MD OPHTHALMO LOGY [address] [place] [address] 03/23/2024 15:10:10 03/23/2024 17:04:29 Primary open angle glaucoma 23129812 H40.1132 iop continues to improvecon tinue latanopros t qhs ou, brimonidin e bid ouRNFL with thinning os>oddiff with viewing nerve od due to band6 mo iop check, hvf 24-2 Calcific b and keratopathy 493262459 H18.429 pt to consider the chelation Proliferat steven retinopathy due to type 2 diabetes mellitus 4587950857 109 E11.3599 continue f/u with RAKgetting shots ou [id number] GUERRERO TRAYLOR PA-C [address] [address] 07/05/2024 11:20:18 07/05/2024 12:39:35 Multiple benign melanocytic nevi 438186720 D22.5 I78.1 L81.4 L82.1 Benign appearing lesions.Co ntinue to monitor and follow-up with any or changing lesions.Re commend to wear SPF 30+ with zinc or titanium oxide cream daily. Prefers lotions/cr eams over sprays.Fol low up in 6 months for a full skin exam. History of malignant neoplasm of skin 690416350 Z85.828 Scar is clear. Well healed scar. No evidence of recurrence . Prurigo nodularis 496660 00 L28.1 587 Lean to PN.Try not to pick lesions. Continue Clobetasol 0.05% cream to use BID for up to two weeks thn limit use to weekends onlyIf areas do not improve, can discuss treatment further. Stasis dermatitis 234994 05 I87.2 36720 JAS negativeVe nous stasis. Vascular changes.Re commend to moisturize legs everyday with OTC Cetaphil or Cereve Moisturizi ng Cream.Rx sent for Clobetasol 0.05% ointment to AA BID for up to 2 weeks. Then use on weekends only.Limit applicatio n of topical steroids to 2 weeks.detention use of topical steroids can cause thinning of the skin. Neoplasm o f uncertain behavior of skin 96048495 D48.5 Biopsy recommende d today. - Verbal [...] they were instructed to call. Actinic keratosis L57.0 Precancero us lesion(s). Also consider PNDiscusse d biopsy vs TH1Yeda LN2 today.Can leave a white discolorat ion in the areas when LN2 is performed. Follow-up if lesion(s) persists or do not resolve. [id number] GILLES COOPER MD OPHTHALMO [address] [place] [address] 09/23/2024 12:52:56 09/23/2024 15:19:31 Primary open angle glaucoma 45135527 H40.1132 iop stablecont inue latanopros t qhs ou, brimonidin e bid ouhvf today stable ou6 mo complete, rnfl ou Calcific b and keratopathy 518910719 H18.429 suspect changing rx with hx of chelation oumr todaycall with problems Proliferat steven retinopathy due to type 2 diabetes mellitus 8640333581 109 E11.3599 continue f/u with RAKgetting shots ouno sig changes on retinal oct today [id number] ALEXYS DAMON [place] [address] [place] [address] 09/30/2024 12:19:45 09/30/2024 13:10:32 Eruption 955034032 R21 77410 Possible drug reaction.P mike has Lupus. she is on Mycophenol ate and plaquenil. Pt states she was put on abx aroun d the same time blisters startedPt to call if blister returns. ext # given to pt We need to see when active. (pt had tried getting in sooner when she was flared) Actinic keratosis 007 L57.0 [id number] The nature of the diagnosis was explained. [...] ID Guarantor Name 10/02/2021 1 [place] [id number] Michelle Felipe [id number] Michelle Felipe 12/19/2024 1 [facility] (MEDICARE REPLACEMENT/A DVANTAGE - PPO) [id number] Michelle Felipe [id number] Michelle Felipe Notes Date Note Type Note Provider Name and Address Organization Details Recorded Time 03/23/2024 text/html ROS as noted in the HPI GILLES COOPER MD [address] [place] [address], [phone], [facility] 03/23/2024 19:27:23 07/05/2024 text/html ROS as noted in the HPI I am here for a skin checkRed, dry skin on arms and legsScabs on shoulders & back History of SCCR hand GUERREOR TRAYLOR PA-C [address] [place] [address], [phone], [facility] 07/06/2024 10:26:15 09/23/2024 text/html ROS as noted in the HPI GILLES COOPER MD [address] [place] [address], [phone], [facility] 09/23/2024 15:17:02 09/30/2024 text/html ROS as noted in the HPI spot check location: L hand, L hand 2nd digit, R hand 2nd and 5th digit, R elbow duration: 2 weeks tx: none reports: was painful, then spots were itchy and tender-now clear. L hand had been swollen and red.Pt has multiple lesions on hands that have came and gone. Pt has blistered. Pt stated blisters went way 2 weeks ago. Pt has Lupus. she is on Mycophenolate and plaquenil. Pt states she was put on abx around the same time blisters started. pt was on Valacyclovir prior to having blisters. ALEXYS DAMON [address] [place], [address], [facility] 10/03/2024 21:03:16 OBGyn Episode No OBEpisode recorded.
--- OUTSIDE RECORDS SUMMARY | 2025-01-05 15:53 | XMS_ITS | Encounter Summary ---
Author Organization [facility] ystem Address [address] [place] [address] Care Team Providers Care Neon Technician Name Role Phone Alisa Kunz Primary Care Provider [phone] Reason for Visit * Reason Comments Med Refill Encounter Details Date Type Department Care Team (Late st Contact Info) Description 10/14/2023 Refill [facility] CARDIOLOGY [address] [place] [address] Sujit Reyes MD [address] [facility] [address] [place] [address] Med Refill Social History Tobacco Use Types [...] Visit [facility] [address] [facility] [address] [place] [address] Naveen Velasquez MD [address] [facility] [address] [place], [place] [id number] 05/04/2026 2:45 PM EST Office Visit [facility] CARDIOLOGY [address] [place] [address] [place] [address] Sujit Reyes MD [address] [place], [place] [id number] documented as of this encounter Visit Diagnoses Not on filedocumented in this encounter Care Teams Neon Technician Relationship Specialty Start Date End Date Alisa Kunz DO [address] [place], [place] [id number] PCP - General Internal Medicine 04/26/21 documented as of this encounter
--- OUTSIDE RECORDS SUMMARY | 2025-01-05 15:53 | XMS_ITS | Encounter Summary ---
Author Organization [facility] Address [address] [place] [address] Care Team Providers Care Mold Release Worker Name Role Phone Pcp, No Primary Care Provider Unavailabl e Alisa Kunz DO Unavailable [phone] Kodi Bustos DO Unavailable [phone] Sujit Arriola MD Unavailable [phone] Sujit Reyes MD Unavailable [phone] Zee Lazar DO Unavailable Reason for Visit * Reason Onset Date Comments HCN Clinical Concern/Question 11/10/2024 Pa in in back/neck Encounter Details Date Type Department Care Team (Late st Contact Info) Description 11/10/2024 Telephone [facility] Internal Medicine [address], 3rd [place] [address] Alisa Kunz DO [address] [place] [address] HCN Clinical Concern/Question (Pain in back/neck) Social History Tobacco Use Types Packs/Day Years [...] Recorded Patient Health Questionnaire-2 Score 0 10/27/2024 [facility] - Occupational Stress Questionnaire Answer [...] drink first t anselmo in the morning (EYE-CLINICAL TRIALS SPECIALIST) to steady your nerves or to [...] * Telephone Encounter - Shannen Stephens - 11/15/2024 11:51 AM EDT Called pt and got her scheduled for today * Telephone Encounter - Alisa Kunz DO - 11/15/2024 11:20 AM EDT Can we call her and see if she can come in this afternoon instead? * Telephone Encounter - Alisa Kunz DO - 11/12/2024 4:17 PM EDT Friday afternoon! * Telephone Encounter - Alisa Kunz DO - 11/12/2024 1:13 PM EDT Can also have her come to my acute clinic on Friday! Or [facility] as well would be great. :) * Telephone Encounter - Norah Nair - 11/12/2024 11:16 AM EDT Clinical Concern/Question Reason for Call: Pt called again about pain in shoulders and back and thinks another x-ray for neckand shoulders needs to be done. Also, she may need pain management. Best contact number: [phone] (mobile) Optimal time of day to reach [...] communication/outcome via MyChart. * Telephone Encounter - Lea Felipe - 11/11/2024 4:24 PM EDT Status Update Call #1 1st call regarding the status of the initial request.Prefers to speak with Shannen but anyone but ifanyone else is available that will be fine. Thank you Best contact number: [phone] (mobile) Optimal time of day to reach [...] communication/outcome via MyChart. * Telephone Encounter - Pinky Hernadez - 11/10/2024 10:13 AM EDT Patient Phone Message Reason for Call:asking to speak with Shannen regarding several questions. No elaboration Best contact number and optimal time of day to reach caller:[phone] Note: Please do not reply to this message. Follow-up communication and further actions as a result of this message need to be communicated with the patient directly, if the patient is not active onMyChart. If the patient is active on MyChart, they will receive notification of the communication/outcome via Info. documented in this encounter Plan of Treatment Upcoming Encounters Date Type Department Care Team (Late st Contact Info) Description 01/06/2025 2:00 PM EDT Office Visit [facility] Medicine Specialties [address], 2nd [place] [address] Lavern Shoemaker MD [address] [place] [id number] 01/12/2025 1:10 PM EST Office [facility] Specialties [address], [address]nd [place] [address] Noris Yee MD [address] [place] [address] 01/12/2025 2:00 PM EST Office Visit [facility] [address], [address] [place] [address] Ezra Fine MD [address] [place] [address] 01/27/2025 10:00 AM EST Office Visit [facility] [address], 1st [place] [address] Sujit Cole, YAMILET [address] [place] [address] 02/02/2025 8:40 AM EST Office Visit [facility] Internal Medicine [address], 3rd [place] [address] Alisa Kunz, [address] [place] [address] 02/09/2025 12:20 PM EST Office Visit [facility] Endocrinology [address] [place] [address] Anne-Marie Kolb, SAP PORTAL CONSULTANT [address] [place] [address] 04/18/2025 2:40 PM EST Office Visit [facility] Endocrinology [address] [place] [address] Anne-Marie Kolb, SAP PORTAL CONSULTANT [address] [facility] [address] [place] [address] documented as of this encounter [...] documented as of this encounter Care Teams Mold Release Worker Relationship Specialty Start Date End Date Pcp, No [address] [place] [address] PCP - General Family Medicine 11/21/23 12/06/24 Alisa Kunz DO [address] [place] [address] Internal Medicine 11/21/23 Kodi Bustos DO [address] [address] Surgeon Cardiothoracic Surgery 11/06/22 Sujit Arriola MD [address] [place] [address] Consulting Physician Pulmonary Disease 11/06/22 Sujit Reyes MD [address] [place] [address] Referring Physician 12/04/22 Zee Lazar DO [address] [place] [address] Resident 09/08/24 documented as of this encounter
--- OUTSIDE RECORDS SUMMARY | 2025-01-05 15:54 | XMS_ITS | Encounter Summary ---
Author Organization [facility] Address [address] [place] [address] Care Team Providers Care Regulatory Submissions Specialist Name Role Phone Alisa Kunz DO Unavailable [phone] Kodi Bustos DO Unavailable [phone] Sujit Arriola MD Unavailable [phone] Sujit Reyes MD Unavailable [phone] Zee Lazar DO Unavailable [phone] Alisa Kunz DO Primary Care Provider [phone] Milli KELLEY RN, Fili Noonan Unavailable [phone] Reason for Visit * Reason Onset Date Comments HCN Lab/home Health 12/30/2024 Encounter Details Date Type Department Care Team (Late st Contact Info) Description 12/30/2024 Telephone [facility] Internal Medicine [address] 3rd [place] [address] Alisa Kunz DO [address] [place] [address] HCN Lab/home Health Social History [...] Recorded Patient Health Questionnaire-2 Score 2 12/27/2024 [facility] of Occupat ional [facility] - Occupational Stress Questionnaire Answer Date [...] in a custodial (including now)? No 12/22/2024 [facility] Utilities Answer Date Recorded In the past 12 months has e [employer]ista, gas, oil, or water [employer] threatened to shut off services in your [...] drink first t anselmo in the morning (EYE-WOOD COATER) to steady your nerves or to [...] * Telephone Encounter - Shannen Stephens - 01/03/2025 8:42 AM EDT noted * Telephone Encounter - Alisa Kunz DO - 12/30/2024 6:30 PM EDT I called and spoke to Michelle: She is considering transitioning to hospice care. We debriefed about this: I do think this is very reasonable. I let her know that I am always happy to see her in the future, even if she transitions to hospice- but that the hospice physicians typically take over the medications after the transition. She expressed understanding. She'll keep me updated. * Telephone Encounter - Lea Felipe - 12/30/2024 4:40 PM EDT Clinical Concern/Question Reason for Call: Verbal orders for nursing care. Thank you Best contact number: [phone] Optimal time of day to reach caller: [...] communication/outcome via MyChart. * Telephone Encounter - Tanner Sheikh LPN - 12/30/2024 4:07 PM EDT Care deferred to Hospice Provider. * Telephone Encounter - Alisa Kunz DO - 12/30/2024 3:01 PM EDT Is Michelle transitioning to hospice? This wasn't something I discussed with her. If she is yes, I defer care to hospice physician. * Telephone Encounter - Sonam Pretty - 12/30/2024 1:32 PM EDT Clinical Concern/Question Reason for Call: Toma calling from [facility] asking if PCP is going to stay on as her physician while she is under hospice. Pls advise. Thank you! Best contact number: Other: [phone] option 2 Optimal time of day to reach caller: [...] Description 01/06/2025 2:00 PM EDT Office Visit [facility] Medicine Specialties [address] 2nd [place] [address] Lavern Shoemaker MD [address] [place] [address] 01/12/2025 1:10 PM EST Office Visit [facility] Medicine Specialties [address]nd [place] [address] Noris Yee MD [address] [place] [address] 01/12/2025 2:00 PM EST Office Visit [facility] [address] [place] [address] Ezra Fine MD [address] [place] [address] 01/27/2025 10:00 AM EST Office Visit [facility] [address], 1[address] [place] [address] Sujit Cole, DIESEL ENGINE MECHANIC APPRENTICE [address] [place] [address] 02/02/2025 8:40 AM EST Office Visit [facility] Internal Medicine [address], 3rd [place] [address] Alisa Kunz, DO [address] [place] [address] 02/09/2025 12:20 PM EST Office Visit [facility] Endocrinology [address] [place] [address] Anne-Marie Kolb, DIESEL ENGINE MECHANIC APPRENTICE [address] [facility] [address] [place] [address] 04/18/2025 2:40 PM EST Office Visit [facility] Endocrinology [address] [place] [address] Anne-Marie Kolb L, DIESEL ENGINE MECHANIC APPRENTICE [address] [place] [address] documented as of this encounter [...] documented as of this encounter Care Teams Regulatory Submissions Specialist Relationship Specialty Start Date End Date Alisa Kunz DO [address] [place] [address] PCP - General Internal Medicine 12/07/24 Alisa Kunz DO [address] [place] [address] Internal Medicine 11/21/23 Kodi Bustos DO [address] [place] [address] Surgeon Cardiothoracic Surgery 11/06/22 Sujit Arriola MD [address] [place] [address] Consulting Physician Pulmonary Disease 11/06/22 Sujit Reyes MD [address] [place] [address] Referring Physician 12/04/22 Zee Lazar DO [address] [place] [address] Resident 09/08/24 Fili Morley III, RN [address] [facility], [address] [place] [address] Small Kick Press Operator 12/22/24 01/05/25 documented as of this encounter
--- OUTSIDE RECORDS SUMMARY | 2025-01-05 15:54 | XMS_ITS | Encounter Summary ---
Author Organization [facility] Address [address] [place] [address] Care Team Providers Care Lime Kiln Worker Name Role Phone Jackson Malave MD Primary Care Provider + [phone] Alisa Kunz DO Primary Care Provider [phone] Pcp, No Primary Care Provider Unavailabl e Alisa Kunz DO Unavailable [phone] Anu Sen RN Unavailable [phone] HatLaura navas L LANDSCAPING SPECIALIST Unavailable Unavailable Balwinder Vale Unavailable Unavailable Kodi Bustos DO Unavailable [phone] Sujit Arriola MD Unavailable [phone] HatLaura navas LANDSCAPING SPECIALIST Unavailable Unavailable Sujit Reyes MD Unavailable [phone] Zully Caldwell LANDSCAPING SPECIALIST Unavailable Unavailable Hatfull, Laura Wild LANDSCAPING SPECIALIST Unavailable Unavailable Hatyosef, Laura L LANDSCAPING SPECIALIST Unavailable Unavailable Tanya Powell Unavailable [phone] Sarah Reyes LANDSCAPING SPECIALIST Unavailable Unavailable Ekaterina Gómez Unavailable Unavailable Zully Caldwell LANDSCAPING SPECIALIST Unavailable Unavailable Ekaterina Gómez Unavailable Unavailable Patricia Yañez LANDSCAPING SPECIALIST Unavailable Unavailab Zee Lr DO Unavailable [phone] Alisa Kunz DO Primary Care Provider [phone] Milli KELLEY RN, Fili Noonan Unavailable Reason for Visit * Reason Comments Med Refill Encounter Details Date Type Department Care Team (Late st Contact Info) Description 02/12/2021 Refill [facility] Internal Medicine [address], 3rd [place] [address] Jackson Malave MD [address] [place] [address] Social History Tobacco Use Types Packs/Day Years [...] Encounters Date Type Department Care Team (Late Contact Info) Description 01/06/2025 2:00 PM EDT Office Visit [facility] Medicine Specialties [address]nd [place] [address] Lavern Shoemaker MD [address] [place] [address] 01/12/2025 1:10 PM EST Office Visit [facility] Medicine Specialties [address], [address]nd [place] [address] Noris Yee MD [address] [place] [address] 01/12/2025 2:00 PM EST Office Visit [facility] [address] [place] [address] Ezra Fine MD [address] [place] [address] 01/27/2025 10:00 AM EST Office Visit [facility] [address], [address] [place] [address] Sujit Cole, UPS DRIVER [address] [place] [address] 02/02/2025 8:40 AM EST Office Visit [facility] Internal Medicine [address], 3rd [place] [address] Alisa Kunz, DO [address] [place] [address] 02/09/2025 12:20 PM EST Office Visit [facility] Endocrinology [address] [place] [address] Anne-Marie Kolb, UPS DRIVER [address] [place] [address] 04/18/2025 2:40 PM EST Office Visit [facility] Endocrinology [address] [place] [address] Anne-Marie Kolb, UPS DRIVER 2[address] [facility] 125 [place] [address] documented as of this encounter Visit Diagnoses [...] as of this encounter Care Teams Lime Kiln Worker Relationship Specialty Start Date End Date Jackson Malave MD [address] [place] [address] PCP - General 07/21/20 03/12/21 Alisa Kunz DO [address] [place] [address] PCP - General Internal Medicine 03/13/21 11/20/23 Pcp, No [address] [place] [address] PCP - General Family Medicine 11/21/23 12/06/24 Alisa Kunz DO [address] [place] [address] PCP - General Internal Medicine 12/07/24 Alisa Kunz, [address] [place] [address] Internal Medicine 11/21/23 Anu Sen RN VALUE-BASED TRANSFORMATION PROGRAM [place] Registered Nurse Internal Medicine 08/22/21 09/24/21 Laura Albright LPN VALUE-BASED [place] [address] TCM Nurse 08/30/22 09/27/22 Balwinder Vale [address] [address] Community Health Worker Bulb Brander 08/30/22 09/06/22 Kodi Bustos, DO [address] [address] Surgeon Cardiothoracic Surgery 11/06/22 Sujit Arriola MD [address] [place] [address] Consulting Physician Pulmonary Disease 11/06/22 Laura Albright LPN VALUE-BASED [place] [address] TCM Nurse 12/02/22 01/01/23 Sujit Reyes MD [address] [place] [address] Referring Physician 12/04/22 Zully Caldwell LPN VALUE-BASED [place] [address] TCM Nurse 02/03/23 03/05/23 Laura Albright LPN VALUE-BASED [place] [address] TCM Nurse 08/05/23 09/04/23 Laura Albright LPN VALUE-BASED TRANSFORMATION PROGRAM [place] [id number] TCM Nurse 02/17/24 03/18/24 Tanya Powell [address] [place] [address] [address] [place] [address] Registered Nurse 04/02/24 07/01/24 Sarah Reyes LPN TCM Nurse 05/27/24 06/26/24 Ekaterina Gómez Electrical Engineering Intern Bulb Brander 07/14/24 07/14/24 Zully Caldwell LPN VALUE-BASED [place] [address] TCM Nurse 07/16/24 08/15/24 kEaterina Gómez Electrical Engineering Intern Bulb Brander 08/16/24 08/16/24 Patricia Yañez LPN [facility] TCM Nurse 08/25/24 10/17/24 Zee Lazar DO [address] [place] [id number] Resident 09/08/24 Fili Morley III, RN [address] [facility], [address] [place] [address] Anesthesia Associate 12/22/24 01/05/25 documented as of this encounter
--- OUTSIDE RECORDS SUMMARY | 2025-01-05 15:54 | XMS_ITS | Encounter Summary ---
Author Organization [facility] Address [address] [place] [address] Care Team Providers Care Gre Instructor Name Role Phone Alisa Kunz DO Unavailable [phone] Kodi Bustos DO Unavailable [phone] Sujit Arriola MD Unavailable [phone] Sujit Reyes MD Unavailable [phone] Zee Lazar DO Unavailable [phone] Alisa Kunz DO Primary Care Provider [phone] Milli KELLEY RN, William R Unavailable [phone] Reason for Visit * Reason Comments HRCM Encounter Details Date Type Department Care Team (Late st Contact Info) Description 01/05/2025 Patient Outreach [facility] [address] [facility] [place] [address] Fili Morley III, RN [address] [facility], [address] [place] [address] CM Social History Tobacco Use [...] How often do you attend chur or restorationism services? 1 to 4 times [...] Recorded Patient Health Questionnaire-2 Score 2 12/27/2024 [facility] - Occupational Stress Questionnaire Answer Date Recorded [...] living in a halfway (including now)? No 12/22/2024 [facility] Utilities Answer Date Recorded In the past 12 months has e [employer], gas, oil, or water company threatened to [...] first t anselmo in the morning (EYE-LAND DEGRADATION ANALYST) to steady your nerves or to [...] Notes - Fili Morley III, RN - 01/05/2025 3:14 PM EDT [facility] Inpatient Review Reason for Note: Patient record Review Patient will be transitioning to hospice care. PCP has transitioned care. Will Un-enroll from [facility].Will add Hospice care to problem list. [facility] Nurse: Fili Morley III, RN 01/05/2025 3:14 PM documented in this encounter Plan of Treatment Upcoming Encounters Date Type Department Care Team (Late st Contact Info) Description 01/06/2025 2:00 PM EDT Office Visit [facility] Medicine Specialties [address]nd [place] [address] Lavern Shoemaker MD [address] [place] [address] 01/12/2025 1:10 PM EST Office Visit [facility] Medicine Specialties [address], [address] [place] [address] Noris Yee MD [address] [facility] [address] [place] [address] 01/12/2025 2:00 PM EST Office Visit [facility] [address] [place] [address] Ezra Fine MD [address] [place] [address] 01/27/2025 10:00 AM EST Office Visit [facility] [address] [place] [address] Sujit Cole, CASH APPLICATION CLERK [address] [place] [address] 02/02/2025 8:40 AM EST Office Visit [facility] Internal Medicine [address], 3rd [place] [address] Alisa Kunz, DO [address] [place] [address] 02/09/2025 12:20 PM EST Office Visit [facility] Endocrinology [address] [place] [address] Anne-Marie Kolb, CASH APPLICATION CLERK [address] [facility] 125 [place] [address] 04/18/2025 2:40 PM EST Office Visit [facility] Endocrinology [address] [place] [address] Anne-Marie Kolb, CASH APPLICATION CLERK [address] [facility] 125 [place] [address] documented as of this encounter Visit Diagnoses [...] documented as of this encounter Care Teams Gre Instructor Relationship Specialty Start Date End Date Alisa Kunz DO [address] [place] [address] PCP - General Internal Medicine 12/07/24 Alisa Kunz DO [address] [place] [address] Internal Medicine 11/21/23 Kodi Bustos DO [address] [address] Surgeon Cardiothoracic Surgery 11/06/22 Sujit Arriola MD [address] [place] [address] Consulting Physician Pulmonary Disease 11/06/22 Sujit Reyes MD [address] [place] [address] Referring Physician 12/04/22 Zee Lazar DO [address] [place], [place] [id number] Resident 09/08/24 Fili [place] III, RN [address] [facility], [address] [place] [address] Battery Recharger 12/22/24 01/05/25 documented as of this encounter
--- OUTSIDE RECORDS SUMMARY | 2025-01-05 15:54 | XMS_ITS | Encounter Summary ---
Author Organization [facility] Address [address] [place] [address] Care Team Providers Care Stone Decorator Name Role Phone Alisa Kunz DO Unavailable [phone] Kodi Bustos DO Unavailable [phone] Sujit Arriola MD Unavailable [phone] Sujit Reyes MD Unavailable [phone] Zee Lazar DO Unavailable [phone] Alisa Kunz DO Primary Care Provider [phone] Milli KELLEY RN, Fili Noonan Unavailable [phone] Reason for Visit * Reason Onset Date Comments HCN - Patient Message 12/31/2024 Encounter Details Date Type Department Care Team (Late st Contact Info) Description 12/31/2024 Telephone [facility] Internal Medicine [address], 3rd [place] [address] Alisa Kunz DO [address] [place] [address] HCN - Patient Message Social [...] Patient Health Questionnaire-2 Score 2 12/27/2024 [facility] - [...] No 12/22/2024 Housing Stability Vital Sign Answer Ohng e [...] living in a fci (including now)? No 12/22/2024 [facility] Utilities Answer Date Recorded In the past 12 months has e [employer], gas, oil, or water [employer] threatened to shut off services in your [...] first t anselmo in the morning (EYE-FOOD BROKER) to steady your nerves or to get [...] Telephone Encounter - Shannen Stephens - 01/03/2025 8:53 AM EDT Called gave vo * Telephone Encounter - Soifa Hernadez - 01/03/2025 8:24 AM EDT Clinical Concern/Question Reason for Call: Shabana with [employer] has called again this morning re verbal order for pt's resumption of care until pt transiitions into hospice. Please call with verbal. thx Best contact number: Other: [phone] Optimal time of day to reach caller: ANYTIME Additional comments/information from caller: None Note: Please do not reply to this message. Follow-up communication and further actions as a result of this message need to be communicated with the patient directly, if the patient is not active onMyChart. If the patient is active on MyChart, they will receive notification of the communication/outcome via MEDSEEKhart. * Telephone Encounter - Naty Sykes - 12/31/2024 11:34 AM EDT Patient Phone Message Reason for Call: She is asking for verbal orders for [facility] and a referral for hospice. Please call Best contact number and optimal time of day to reach caller: [phone] Note: Please do not reply to this [...] Description 01/06/2025 2:00 PM EDT Office Visit [facility] [address], [address] [place] [address] Lavern Shoemaker MD [address] [place] [address] [id number] 01/12/2025 1:10 PM EST Office Visit [facility] [address], 2nd [place] [address] Noris Yee MD [address] [place] [address] 01/12/2025 2:00 PM EST Office Visit [facility] [address] [place] [address] Ezra Fine MD [address] [place] [address] 01/27/2025 10:00 AM EST Office Visit [facility] [address], 1st [place] [address] Sujit Cole APRN [address] [place] [address] 02/02/2025 8:40 AM EST Office Visit [facility] Internal Medicine [address], 3rd [place] [address] Alisa Kunz DO [address] [place] [address] 02/09/2025 12:20 PM EST Office Visit [facility] Endocrinology [address] [place] [address] Anne-Marie Kolb, TURBINE INSPECTOR [address] [facility] [address] [place] [address] 04/18/2025 2:40 PM EST Office Visit [facility] Endocrinology [address] [place] [address] Anne-Marie Kolb, TURBINE INSPECTOR [address] [facility] 125 [place] [address] documented as of this encounter [...] as of this encounter Care Teams Stone Decorator Relationship Specialty Start Date End Date Alisa Kunz DO [address] [place] [address] PCP - General Internal Medicine 12/07/24 Alisa Kunz DO [address] [place] [address] Internal Medicine 11/21/23 Kodi Bustos, [address] [address] Surgeon Cardiothoracic Surgery 11/06/22 Sujit Arriola MD [address] [place] [address] Consulting Physician Pulmonary Disease 11/06/22 Sujit Reyes MD [address] [place] [address] Referring Physician 12/04/22 Zee Lazar DO [address] [place], [place] [id number] Resident 09/08/24 Fili Morley III, RN [address] [facility], [address] [place], [place] [id number] Sagger Maker 12/22/24 01/05/25 documented as of this encounter
--- OUTSIDE RECORDS SUMMARY | 2025-01-05 15:54 | XMS_ITS | Encounter Summary ---
Author Organization [facility] Address [address] [place] [address] Care Team Providers Care Digital Content Coordinator Name Role Phone Alisa Kunz DO Unavailable [phone] Kodi Bustos DO Unavailable [phone] Sujit Arriola MD Unavailable [phone] Sujit Reyes MD Unavailable [phone] Zee Lazar DO Unavailable [phone] Alisa Kunz DO Primary Care Provider [phone] Milli KELLEY RN, Fili Noonan Unavailable [phone] Encounter Details Date Type Department Care Team (Late st Contact Info) Description 12/30/2024 Telephone [facility] Internal Medicine [address], 3rd [place] [address] Alisa Kunz DO [address] [place] [address] Social History Tobacco Use Types [...] Recorded Patient Health Questionnaire-2 Score 2 12/27/2024 [facility] - Occupational Stress Questionnaire Answer Date [...] in a senior care (including now)? No 12/22/2024 [facility] Utilities Answer Date Recorded In the past 12 months has [facility] [employer], [employer], oil, or water [employer] threatened to shut off services in your [...] drink first t anselmo in the morning (EYE-GSE MECHANIC) to steady your nerves or to [...] Encounter - Alisa Kunz DO - 12/30/2024 12:24 PM EDT Thank you! * Telephone Encounter - Sonam Pretty - 12/30/2024 12:09 PM EDT Clinical Concern/Question Reason for Call: Cece calling from [facility] to let PCP know that they started today for due to pt being in the ED on Friday. Pls advise. Thank you! Best contact number: Other: [phone] Optimal time of day to reach caller: [...] 01/06/2025 2:00 PM EDT Office Visit [facility] Medicine Specialties [address], 2nd [place] [address] Lavern Shoemaker MD [address] [place] [address] 01/12/2025 1:10 PM EST Office Visit [facility] Medicine Specialties [address], 2[address] [place] [address] Noris Yee MD [address] [place] [address] 01/12/2025 2:00 PM EST Office Visit [facility] [address], [address] [place] [address] Ezra Fine MD [address] [place] [address] 01/27/2025 10:00 AM EST Office Visit [facility] [address], 1st [place] [address] Sujit Cole, POTATO CHIP MAKER [address] [place] [address] 02/02/2025 8:40 AM EST Office Visit [facility] Internal Medicine [address], 3rd [place] [address] Alisa Kunz, DO [address] [place] [address] 02/09/2025 12:20 PM EST Office Visit [facility] Endocrinology [address] [place] [address] Anne-Marie Kolb, POTATO CHIP MAKER [address] [facility] [address] [place] [address] 04/18/2025 2:40 PM EST Office Visit [facility] Endocrinology [address] [place] [address] Anne-Marie Kolb L, POTATO CHIP MAKER [address] [place] [address] documented as of this encounter [...] as of this encounter Care Teams Digital Content Coordinator Relationship Specialty Start Date End Date Alisa Kunz DO [address] [place] [address] PCP - General Internal Medicine 12/07/24 Alisa Kunz DO [address] [place] [address] Internal Medicine 11/21/23 Kodi Bustos DO [address] [place] [address] Surgeon Cardiothoracic Surgery 11/06/22 Sujit Arriola MD [address] [place] [address] Consulting Physician Pulmonary Disease 11/06/22 Sujit Reyes MD [address] [place] [address] Referring Physician 12/04/22 Zee Lazar DO [address] [place] [address] Resident 09/08/24 Fili Morley III, RN [address] [facility], [address] [place] [address] Rn Psychiatric 12/22/24 01/05/25 documented as of this encounter
--- OUTSIDE RECORDS SUMMARY | 2025-01-05 15:54 | XMS_ITS | Encounter Summary ---
Author Organization [facility] Address [address] [place] [address] Care Team Providers Care Wireless Operator Name Role Phone Alisa Kunz DO Unavailable Kodi Bustos DO Unavailable [phone] Sujit Arriola MD Unavailable [phone] Sujit Reyes MD Unavailable [phone] Zee Lazar DO Unavailable [phone] Alisa Kunz DO Primary Care Provider [phone] Milli KELLEY RN, Fili Noonan Unavailable [phone] Reason for Referral * Consultation (Routine) - Authorized Specialty Diagnoses / Procedures Referred By Contdarwin t Referred To Contact Internal Medicine Diagnoses Hospital discharge follow-up Alisa Kunz DO [address] [place] [address] Phone: tel: fax: [facility] [address] [place] [address] Phone: tel: fax: Referral ID Status Reason Start Date Expiration Date Visits Requested Visits Authorized [id number] Authorized Specialty Services Required 06/24/2026 1 1 Encounter Details Date Type Department Care Team (Late st Contact Info) Description 12/23/2024 Orders Only [facility] Internal Medicine [address]rd [place] [address] Alisa Kunz, [address] [place] [address] Hospital discharge follow-up (Primary Dx) Social History Tobacco Use Types [...] Recorded Patient Health Questionnaire-2 Score 0 10/27/2024 [facility] of Occupat ional Health - Occupational Stress [...] living in a retirement (including now)? No 12/22/2024 [facility] Utilities Answer Date Recorded In the past 12 months has th e electric, gas, oil, or water company threatened to shut off services in your home? No 12/22/2024 CAGE ASSESSMENT Answer Date Recorded Cage unable to access Not on file 12/21/2024 Maximum number of drinks you had on a given occasion in the last month? 2 drinks 12/21/2024 How many alcoholic Beverages do you typically drink in a week? 8 - 14 per week 12/21/2024 Have you ever felt you shoul d CUT down on your drinking? 1 12/21/2024 Have you been ANNOYED by peo ple criticizing your drinking? 0 12/21/2024 Have you felt GUILTY about your drinking? 0 12/21/2024 Have you had a drink first t anselmo in the morning (EYE-AIRSET CASTER) to steady your nerves or to get rid of a hangover? 0 12/21/2024 CAGE Questionnaire Score 1 025 PHQ-2A Answer Date Recorded Depression Risk [...] Date of Assessment Author No Risk Indicated 12/23/2024 9:00 AM EDT Shantal Srivastava RN * Question Answer Date of Assessment Author 1. Wish to be (Past 1 Month) No 12/23/2024 9:00 AM JANET Shantal Srivastava RN 2. Non-Specific Active Suici dillon Thoughts (Past 1 Month) No 12/23/2024 9:00 AM EDT Lesa Srivastava cia, RN 6. Suicidal Behavior (Lifetime) No 9:00 AM JANET Shantal Srivastava RN documented as of this encounter Plan of Treatment Upcoming Encounters Date Type Department Care Team (Late st Contact Info) Description 01/06/2025 2:00 PM EDT Office Visit [facility] Medicine Specialties [address]nd [place] [address] Lavern Shoemaker MD [address] [place], [place] [id number] 01/12/2025 1:10 PM EST Office Visit [facility] Medicine Specialties [address], [address]nd [place] [address] Noris Yee MD [address] [place] [address] 01/12/2025 2:00 PM EST Office Visit [facility] [address] [place] [address] Ezra Fine MD [address] [place] [address] 01/27/2025 10:00 AM EST Office Visit [facility] [address], 1st [place] [address] Sujit Cole, VETERINARIAN SMALL ANIMAL [address] [place] [address] 02/02/2025 8:40 AM EST Office Visit [facility] Internal Medicine [address], 3rd [place] [address] Alisa Kunz, [address] [place] [address] 02/09/2025 12:20 PM EST Office Visit [facility] Endocrinology [address] [place] [address] Anne-Marie Kolb, VETERINARIAN SMALL ANIMAL [address] [place] [address] 04/18/2025 2:40 PM EST [facility] [address] [place] [address] Anne-Marie Kolb, VETERINARIAN SMALL ANIMAL 2[address] [facility] [address] [place] [address] Scheduled Referrals Name Type Priority Associated Diagnoses Order Schedule Discharge Ambulatory referral - High Risk Outpatient Referral Routine Hospital discharge follow-up Expected: 12/30/2024, Expires: 06/26/2026 documented as of this encounter Visit Diagnoses Diagnosis Hospital discharge follow-up- Primary Other follow-up examination documented in this encounter Additional Health Concerns Assessment Noted Time PHQ-9 Depression Total Score: 0 09/09/19 11:19 AM EDT A fall risk assessment has been complete d for the patient 12/06/2024 11:29 AM EDT A Body Mass Index follow-up plan has been documented for the patient 12/23/2024 11:25 AM EDT documented as of this encounter Care Teams Wireless Operator Relationship Specialty Start Date End Date Alisa Kunz DO [address] [place] [address] PCP - General Internal Medicine 12/07/24 Alisa Kunz DO [address] [place] [address] Internal Medicine 11/21/23 Kodi Bustos DO [address] [phone] Surgeon Cardiothoracic Surgery 11/06/22 Sujit Arriola MD [address] [place] [address] Consulting Physician Pulmonary Disease 11/06/22 Sujit Reyes MD [address] [facility] [place] [address] Referring Physician 12/04/22 Zee Lazar DO [address] [place] [address] Resident 09/08/24 Fili Morley III, RN [address] [facility], [address] [place] [address] Lead Fabricator 12/22/24 01/05/25 documented as of this encounter
--- OUTSIDE RECORDS SUMMARY | 2025-01-05 15:54 | XMS_ITS | Referral Summary ---
Author Organization [facility] ([place], [place], [place], [place]) Address [address] [place] [address] Care Team Providers Care Integrated Logistics Support Manager Name Role Phone Unavailable Primary Care [...]
--- OUTSIDE RECORDS SUMMARY | 2025-01-05 15:54 | XMS_ITS | Encounter Summary ---
Author Organization [facility] Address [address] [place] [address] Care Team Providers Care Study Coordinator Name Role Phone Alisa Kunz DO Unavailable [phone] Kodi Bustos DO Unavailable [phone] Sujit Arriola MD Unavailable [phone] Sujit Reyes MD Unavailable [phone] Zee Lazar DO Unavailable [phone] Alisa Kunz DO Primary Care Provider [phone] Milli KELLEY RN, William R Unavailable [phone] Reason for Visit * Reason Comments HRCM Encounter Details Date Type Department Care Team (Late st Contact Info) Description 12/22/2024 Patient Outreach [facility] [address] [facility], [address] [place] [address] Fili Morley III, RN [address] [facility], [address] [place] [address] HRCM Social History Tobacco Use Types Packs/Day Years [...] Patient Health Questionnaire-2 Score 0 10/27/2024 [facility] - Occupational Stress Questionnaire Answer Date Recorded [...] living in a alf (including now)? No 12/22/2024 [facility] Utilities Answer Date Recorded In the past 12 months has th e [employer], gas, oil, or water company threatened to [...] drink first t anselmo in the morning (EYE-DRUM PLATER) to steady your nerves or to get [...] Date of Assessment Author No Risk Indicated 12/22/2024 9:00 AM EDT Shantal Srivastava RN * Question Answer Date of Assessment Author 1. Wish to be (Past 1 Month) No 12/22/2024 9:00 AM EDT Shantal Srivastava RN 2. Non-Specific Active Suici dillon Thoughts (Past 1 Month) No 12/22/2024 9:00 AM EDT Lesa Srivastava cia, RN 6. Suicidal Behavior (Lifetime) No 9:00 AM EDT Shantal Srivastava RN documented as of this encounter Miscellaneous Notes * Progress Notes - Fili Morley III, RN - 12/22/2024 3:35 PM EDT HRCM Inpatient Review Reason for Note: Inpatient Admission Review HR nurse will coordinate with [facility] during admission and continue to follow the patient after discharge. [facility] Nurse: Fili Morley III, RN 12/22/2024 3:35 PM documented in this encounter Plan of Treatment Upcoming Encounters Date Type Department Care Team (Late st Contact Info) Description 01/06/2025 2:00 PM EDT Office Visit [facility] Medicine Specialties [address]nd [place] [address] Lavern Shoemaker MD [address] [place] [address] 01/12/2025 1:10 PM EST Office Visit [facility] Medicine Specialties [address], [address] [place] [address] Noris Yee MD [address] [place] [address] 01/12/2025 2:00 PM EST Office Visit [facility] [address] [place] [place] [address] Ezra Fine MD [address] [place] [address] 01/27/2025 10:00 AM EST Office Visit [facility] [address] [place], [address] [place] [address] Sujit Cole, PURCHASING AND FISCAL CLERK [address] [place] [address] 02/02/2025 8:40 AM EST Office Visit [facility] Internal Medicine [address], 3rd [place] [address] Alisa Kunz, DO [address] [place] [address] 02/09/2025 12:20 PM EST Office Visit [facility] Endocrinology [address] [place] [address] Anne-Marie Kolb, PURCHASING AND FISCAL CLERK [address] [place] [address] 04/18/2025 2:40 PM EST Office Visit [facility] Endocrinology [address] [place] [address] Cortes Anne-Marie L, PURCHASING AND FISCAL CLERK [address] [place] [address] documented as of this encounter [...] documented as of this encounter Care Teams Study Coordinator Relationship Specialty Start Date End Date Alisa Kunz DO [address] [place] [address] PCP - General Internal Medicine 12/07/24 Alisa Kunz DO [address] [place] [address] Internal Medicine 11/21/23 Kodi Bustos DO [address] [place] [address] Surgeon Cardiothoracic Surgery 11/06/22 Sujit Arriola MD [address] [place] [address] Consulting Physician Pulmonary Disease 11/06/22 Sujit Reyes MD [address] [place] [address] Referring Physician 12/04/22 Zee Lazar DO [address] [place] [id number] Resident 09/08/24 Fili Morley III, RN [address] [facility], [address] [place] [address] Crew Caller 12/22/24 01/05/25 documented as of this encounter
--- OUTSIDE RECORDS SUMMARY | 2025-01-05 15:54 | XMS_ITS | Encounter Summary ---
Author Organization [facility] Address [address] [place] [address] Care Team Providers Care Rib Builder Name Role Phone Alisa Kunz Primary Care Provider [phone] Encounter Details Date Type Department Care Team (Late st Contact Info) Description 10/19/2024 Telephone [facility] CARDIOLOGY [address] [facility] [address] [place] [address] Naveen Velasquez MD [address] [facility] [address] [place] [address] Social History Tobacco Use Types [...] Telephone Encounter - Marj Delgado PharmD - 11/12/2024 1:29 PM EDT Yes, 10/18 was 2.14, 10/26 was 2.68, 11/02 was 2.63, 11/09 was 2.74. Patient is also going to outside lab now (not home monitor, which we suspected was having issues previously).. * Telephone Encounter - Halima Cortes RN - 11/12/2024 12:52 PM EDT I just want to clarify. Has she had therapeutic INR's consistently for 4 weeks straight? * Telephone Encounter - Jillian Johnson RegSched Rep - 11/12/2024 11:03 AM EDT Pt called to get rescheduled for ECV and asked to speak to Halima to give lab numbers. Call transferred. Please advise if new order is placed. Thank you * Telephone Encounter - Halima Cortes RN [...] Description 01/19/2025 1:45 PM EST Office Visit [facility] [address] [facility] [address] [place] [address] Naveen Velasquez MD [address] [facility] [address] [place] [address] 05/04/2026 2:45 PM EST Office Visit [facility] CARDIOLOG[facility] [address] [place] [address] Sujit Reyes MD [address] [facility] [address] [place] [address] documented as of this encounter Visit Diagnoses Not on filedocumented in this encounter Care Teams Rib Builder Relationship Specialty Start Date End Date Alisa Kunz DO [address] [place], [place] [id number] PCP - General Internal Medicine 04/26/21 documented as of this encounter
--- OUTSIDE RECORDS SUMMARY | 2025-01-05 15:54 | XMS_ITS | Encounter Summary ---
Author Organization [facility] Address [address] [place] [address] Care Team Providers Care Student Worker Name Role Phone Alisa Kunz DO Unavailable [phone] Kodi Bustos DO Unavailable [phone] Sujit Arriola MD Unavailable [phone] Sujit Reyes MD Unavailable [phone] Zee Lazar DO Unavailable [phone] Alisa Kunz DO Primary Care Provider [phone] Milli KELLEY RN, Fili Noonan Unavailable [phone] Reason for Referral * Consultation (Routine) - Authorized Specialty Diagnoses / Procedures Referred By Contac t Referred To Contact Diagnoses Encounter for support and coordination of transition of care [facility] [address], [address] [place] [address] Phone: tel: [facility] [address], [address] [place] [address] Phone: tel: Referral ID Status Reason Start Date Expiration Date Visits Requested Visits Authorized [id number] Authorized Other Co-Managemen t of Problem 5 06/23/2026 1 1 Encounter Details Date Type Department Care Team (Late st Contact Info) Description 12/22/2024 Patient Outreach [facility] [address] [place] [address] Ekaterina Gómez Social History Tobacco Use Types Packs/Day Years [...] Recorded Patient Health Questionnaire-2 Score 0 10/27/2024 [facility] Occupat ional [facility] - Occupational Stress [...] living in a assisted (including now)? No 12/22/2024 [facility] Utilities Answer Date Recorded In the [...] drink first t anselmo in the morning (EYE-BROACHING MACHINE SET UP OPERATOR) to steady your nerves [...] (Past 1 Month) No 12/22/2024 9:00 AM JANET Shantal Srivastava RN 2. Non-Specific Active Suici dillon Thoughts (Past 1 Month) No 12/22/2024 9:00 AM EDT Lesa Srivastava cia, RN 6. Suicidal Behavior (Lifetime) No 9:00 AM JANET Shantal Srivastava RN documented as of this encounter Miscellaneous Notes * Progress Notes - Ekaterina Gómez - 12/22/2024 1:59 PM EDT [facility] Enrollment 12/22/2024 [facility] Program: [] LINK [x] HRCM Primary Facility: [] [facility] [x] Sherif Siddiqui [x] Spoke with care team [x] Spoke with patient/caregiver [x] [facility] PCP [] No [facility] PCP or No PCP [x] Confirmed/Updated Patient's Contact Information, Voicemail, Preferred Method SDOH Needs/Assessment [] Transportation [] Food [] Housing [] Utility [x] Medication [x] Health Education [] Insurance [] Legal [] Unable to assess Discussion Summary: [facility] SW met with pt bedside for introductions and review of [facility] programs. Pt declined LINK nurse HV. Pt verified contact info and PCP; verbalized understanding of benefits of [facility] appt. [facility] SW provided contact card for f/u questions. Discharge Disposition [] Sub-Acute Rehab [x] Home [] Other: Ekaterina Gómez 12/22/2024 documented in this encounter Plan of Treatment Upcoming Encounters Date Type Department Care Team (Late st Contact Info) Description 01/06/2025 2:00 PM EDT Office Visit [facility] Medicine Specialties [address] [place] [address] Lavern Shoemaker MD [address] [place] [address] 01/12/2025 1:10 PM EST Office Visit [facility] Specialties [address] [place] [phone] Noris Yee MD [address] [facility] [address] [place] [phone] 01/12/2025 2:00 PM EST Office Visit Interventional Pain Medicine [address] [place] [phone] Ezra Fine MD [address] [place] [phone] 01/27/2025 10:00 AM EST Office Visit [facility] [address] [place] [address] Sujit Cole, OFFICE SUPPORT [address] [place] [address] 02/02/2025 8:40 AM EST Office Visit [facility] Internal Medicine [address] [place] [address] Alisa Kunz DO [address] [place] [address] 02/09/2025 12:20 PM EST Office Visit [facility] Endocrinology [address] [place] [address] Anne-Marie Kolb, OFFICE SUPPORT [address] [facility] [address] [place] [address] 04/18/2025 2:40 PM EST Office Visit [facility] Endocrinology [address] [place] [address] Anne-Marie Kolb, OFFICE SUPPORT [address] [facility] [address] [place] [address] Scheduled Referrals Name Type Priority Associated Diagnoses Orde r Schedule Ambulatory referral to [facility] Outpatient Referral Routine Encounter for support and coordination of transition of care 1 Occurrences starting 12/22/2024 until 06/25/2026 documented as of this encounter Visit Diagnoses Diagnosis Encounter for support and coordination of transition of care- Primary documented in this encounter Additional Health Concerns Assessment Noted Time PHQ-9 Depression Total Score: 0 09/09/19 25 11:19 AM EDT A fall risk assessment has been complete d for the patient 12/06/2024 11:29 AM EDT A Body Mass Index follow-up plan has been documented for the patient 12/23/2024 11:25 AM EDT documented as of this encounter Care Teams Student Worker Relationship Specialty Start Date End Date Alisa Kunz DO [address] [place] [phone] PCP - General Internal Medicine 12/07/24 Alisa Kunz DO [address] [place] [phone] Internal Medicine 11/21/23 Kodi Bustos DO [address] [phone] Surgeon Cardiothoracic Surgery 11/06/22 Sujit Arriola MD [address] [place] [phone] Consulting Physician Pulmonary Disease 11/06/22 Sujit Reyes MD [address] [place] [phone] Referring Physician 12/04/22 Zee Lazar DO [address] [place], [place] [id number] Resident 09/08/24 Fili Morley III, RN [address] [facility], [address] [place], [place] [id number] Business Services Sales Representative 12/22/24 01/05/25 documented as of this encounter
--- OUTSIDE RECORDS SUMMARY | 2025-01-05 15:54 | XMS_ITS | Clinical Summary ---
[facility] Address [address] [place] [address] Care Team Providers Care Manager Account Management Name Role Phone Alisa Kunz Primary Care Provider [phone]- [phone] Allergies Active Allergy Reactions Criticality Noted Date Comments Azathioprine Unknown (See Comments) Low 07/06/2020 Cephalexin Rash Low 02/09/2019 Atorvastatin Myalgia Medium 02/29/2016 Morphine And Codeine Hallucinations Medium 02/17/2017 Penicillins Rash Low 05/04/2020 Pravastatin Other (See Comments) Low 02/29/2016 Doesn't remember this rxn-from 3 yrs ago Rosuvastatin Unknown - Low Severity 01/03/2023 Spironolactone Dizziness Medium 12/02/2024 Tetracyclines & Related Rash Low 02/17/2017 Medications Calcium Citrate-Vitami n D (CALCIUM + D PO) Take 1 [...] drop to both eyes Every Night. 6 9 Active DULoxetine (CYMBALTA) 20 MG capsule Take 1 capsule by mouth Every Morning. Active Trelegy Ellipta 200-62.5-25 MCG/INH inhaler Inhale 1 puff Daily. 2 Active gabapentin (NEURONTIN) 100 MG capsule Take by mouth 2 (Two) Times a Day. 300 mg po qam and 600 mg po qpm 3 Active hydroxychloroq uine (PLAQUENIL) 200 MG tablet Take 1 tablet by mouth Every Night. 3 Active brimonidine (ALPHAGAN) 0.2 % ophthalmic solution Administer 1 drop to both eyes Every Night. 4 Active metoprolol succinate XL (TOPROL-XL) 25 MG 24 hr tablet Take 1 tablet by mouth Daily. 90 tablet 3 4 Active Insulin Lispro (humaLOG) 100 UNIT/ML injection Inject 3 Units under the skin into the appropriate area as directed 3 (Three) Times a Day Before Meals. PER SS Active DULoxetine (CYMBALTA) 60 MG capsule Take [...] 4 GM chewable tablet Chew 4 tablets. 4 Active glucagon (GLUCAGEN) 1 MG injection Inject 1 mg under the skin into the appropriate area as directed. 4 Active Urine Glucose-Ketone s Test (Keto-Diastix) strip Use daily as needed per endocrinology 4 Active furosemide (LASIX) 20 MG tablet Take 1 tablet by mouth As Needed (take for edema, increase in weight 3 lbs.). 90 tablet 3 4 Active nitroglycerin (NITROSTAT) 0.3 MG SL tablet 1 under the tongue as needed for angina, may repeat q5mins for up three doses 25 tablet 1 5 Active Additional Information Patient taking differently: 1 under the tongue as needed for angina, may repeat q5mins for up three doses. PT. HAS NOT HAD TO TAKE THIS YET., Reported on 12/02/2024 acetaminophen (TYLENOL) 500 MG tablet Take 2 tablets by mouth Every 6 (Six) Hours As Needed. Active spironolactone (ALDACTONE) 25 MG tablet Take 6.25 mg by mouth Daily. 5 Active ezetimibe (ZETIA) 10 MG tablet TAKE 1 TABLET DAILY 90 tablet 3 5 Active Additional Information Patient taking differently:10 mg OralNightly, Reported on 12/02/2024 mycophenolate (CELLCEPT) 500 MG tablet Take 2 tablets by mouth 2 (Two) Times a Day. 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 Continue sensor as asymptomatic Abnormal stress test 04/26/2020 Overview (04/27/2020): [facility] at [facility] (04/19/2020): Test is abnormal and suggest anterior ischemia. Normal LVEF Fatigue 12/09/2018 Syncope and collapse 08/18/2018 Complete heart block 08/18/2018 A-fib 08/16/2018 History of CVA (cerebrovascular accident) 2018 Laceration of head 08/16/2018 Hyponatremia 08/15/2018 Second degree AV block 08/15/2018 Overview (08/24/2018): Added automatically from request for surgery [id number] Chronic kidney disease 05/05/2012 Hereditary and idiopathic neuropathy 05/05/2012 CAD (coronary artery disease) Ischemic heart disease Overview (02/29/2016): a. CABG, Dr. Timur Lopez, July 1999. i. SHEEHAN to distal LAD. ii. SVG to first diagonal. iii. SVG to second diagonal. b. SHAR [place] metal stenting of the ostium of the SVG to second diagonal. c. Rotational atherectomy/PTCA of RCA and SVG to second diagonal in-stent. i. PTCRA/stenting of proximal RCA in-stent restenosis and rotational atherectomy/PTCA of SVG to second diagonal. d. [place] therapy for in-stent restenosis of proximal dominant RCA, 04/16/2001, LVEF (65%). e. [facility]: Dr. Thakkar for acute ME, 01/10/2007: i. Normal LV function and wall motion. ii. Patent SVG to second diagonal. iii. Patent SHEEHAN graft to LAD. iv. 50% ostial stenosis of SVG to first diagonal. v. JANA [place] stenting of mid RCA stenosis. f. Mild reversible anteroischemia - Cardiac SPECT (scan date ?), LVEF (77%). g. [facility], May 2011, [facility], reportedly revealed no disease (data deficit) [...] Encounters Date Type Department Care Team Description 12/21/2024 Telephone [facility] [address] [facility] [address] [place] [id number] Sujit Reyes MD 12/07/2024 Anticoagulation Visit [facility] [address] [facility] [address] [place] [address] Yancy Viveros, Forensic Economist Left ventricular apical thrombus (Primary Dx) 12/07/2024 Telephone [facility] [address] [facility] [address] [place] [address] Yancy Viveros, Forensic Economist 12/05/2024 Refill [facility] [address] [facility] [address] [place] [address] Nanette Pryor APRN Med Refill 12/02/2024 3:30 PM EDT Office Visit [facility] [address] [place] [address] [address] [place] [address] Sujit Reyes MD Paroxysmal atrial fibrillation (Primary Dx); Complete heart block; Coronary artery disease involving shoshone-bannock coronary artery of shoshone-bannock heart without angina pectoris; Chronic diastolic congestive heart failure 12/02/2024 Travel 11/19/2024 8:53 AM EDT - 11/19/2024 1:45 PM EDT Hospital Encounter [facility] [address] [place] [address] Naveen Velasquez MD Paroxysmal atrial fibrillation; Persistent atrial fibrillation Discharge Disposition: Home or Self Care 11/19/2024 Travel 11/16/2024 Prep for Surgery [facility] ONLY [address] [place] [address] Ekaterina Rand PA Persistent atrial fibrillation (Primary Dx) 11/12/2024 Telephone [facility] [address] [facility] [address] [place] [address] Ekaterina Rand PA 11/10/2024 Anticoagulation Visit [facility] [address] [facility] [address] [place] [address] Yancy Viveros, Forensic Economist Left ventricular apical thrombus (Primary Dx) 11/03/2024 Anticoagulation Visit [facility] [address] [facility] [address] [place] [address] Yancy Viveros, Forensic Economist Left ventricular apical thrombus (Primary Dx) 10/28/2024 Anticoagulation Visit [facility] [address] [facility] [address] [place] [address] Yancy Viveros, Forensic Economist Left ventricular apical thrombus (Primary Dx) 10/21/2024 2:15 PM EDT Office Visit [facility] [address] [place] [address] Shannen Horta APRN EWELINA (obstructive sleep apnea) (Primary Dx); Nocturnal hypoxemia; Weight loss; On supplemental oxygen therapy 10/21/2024 Travel 10/19/2024 Telephone [facility] [address] [facility] [address] [place] [address] Naveen Velasquez MD 10/19/2024 Anticoagulation Visit [facility] [address] [facility] [address] [place] [address] Mike Mariee Forensic Economist Left ventricular apical thrombus (Primary Dx) 10/12/2024 9:52 AM EDT - 10/12/2024 4:46 PM EDT Hospital Encounter [facility] [address] [place] [address] Naveen Velasquez MD Paroxysmal atrial fibrillation Discharge Disposition: Home or Self Care 10/12/2024 Telephone [facility] [address] [facility] [address] [place] [address] Marj Delgado, PharmD 10/12/2024 Travel 10/07/2024 Telephone [facility] [address] [facility] [address] [place] [address] Mike Mariee, Forensic Economist 10/05/2024 Telephone [facility] [address] [facility] [address] [place] [address] TOMASSONI - CARDI[facility]ERSION 10/05/2024 Anticoagulation Visit [facility] [address] [facility] [address] [place] [address] Mike Mariee, Forensic Economist Left ventricular apical thrombus (Primary Dx) from Last 3 Months Immunizations Immunization Administration Dates Next Due COVID-19 (thredUP) Purple Cap Monovalent 04/22/2020,03/30/2020 Fluzone High-Dose 65+YRS 11/27/2023,11/09,01/18/2019,12/19 Fluzone High-Dose 65+yrs 01/09/2023,01/09,01/18/2019,12/19 Hepatitis A 01/24/2019,01/23/2019,06/11/2018 Influenza TIV (IM) 12/08/2018 Influenza, Unspecified 12/09/2019 Pneumococcal Conjugate 13-Va lent (PCV13) 08/06/2019,07/02/2016 Pneumococcal Polysaccharide (PPSV23) 12/09/2019, 06/11/2018 Shingrix 01/24/2019,01/23/2019,06/11/2018 Family History Medical History Relation Name Comments COPD Father Doron glaser Heart attack Maternal Grandfather linn vanessa COPD Mother Gracydrew Maria Heart disease Mother Gracydrew Maria Stroke Mother Gracydrew Maria Relation Name Status Comments Father Doron glaser Maternal Grandfather linn vanessa Alive Mother Gracy Maria Social History Tobacco Use Types Packs/Day [...] Pulse 60 12/02/2024 3:31 PM EDT Temperature 36.2 C (97.1 F) 11/19/2024 9:05 AM EDT Respiratory Rate 16 11/19/2024 11:36 AM EDT Oxygen Saturation 92% 12/02/2024 3:31 PM EDT with o2 Inhaled Oxygen Concentration - - Weight 60.8 kg (134 lb) 12/02/2024 3:31 PM EDT Height 162.6 cm (5' 4.02 ) 12/02/2024 3:31 PM ED T Body Mass Index 22.99 12/02/2024 3:31 PM EDT Plan of Treatment Upcoming Encounters Date Type Department Care Team (Late st Contact Info) Description 01/19/2025 1:45 PM EST Office Visit [facility] [address] [facility] [address] [place] [phone] Naveen Velasquez MD [address] [facility] [address] [place] [address] 05/04/2026 2:45 PM EST Office Visit [facility] [address] [place] [address] Sujit Reyes MD [address] [facility] [address] [address] [place] [address] Health Maintenance Due Date Last [...] WELLNESS VISIT 01/10/2024 01/09/2023 , 04/03/2021, 09/06/2020 INFLUENZA VACCINE 10/08/2024 11/27/2023, , 01/28/2022, Additional history exists DXA SCAN 01/10/2025 01/10/2023, 05/2022, 11/08/2020, Additional history exists FECAL OCCULT BLOOD TEST 02/11/2025 02/12/2024 DIABETIC EYE EXAM 03/23/2025 03/23/2024, , 05/01/2022, Additional history exists HEMOGLOBIN A1C 05/20/2025 11/20/2024, 11/08, 11/19/2024, Additional history exists LIPID PANEL 11/21/2025 11/21/2024, 11/08, 07/07/2023, Additional history exists COLONOSCOPY 10/17/2030 10/17/2020 COLORECTAL CANCER SCREENING 10/17/2030 ZOSTER VACCINE Completed 01/24/2019, 01/08, 06/11/2018 Pneumococcal Vaccine 50+ Completed 020, 08/06/2019, 06/11/2018, Additional history exists HEPATITIS C SCREENING Completed 01/29/2024 , 09/18/2022, 08/25/2022, Additional history exists Medical Devices Implanted Type Area Pe Manager Device Identifier Shelf Expiration Date Model / Serial / Lot Ld Pm Tendril Sts 6f52cm [id number] - [id number] - [id number] Implanted:Qty: 1 on 08/24/2018 by Naveen Velasquez MD at [facility] [employer] 07/07/2021 [id number] / [id number] / [id number] Ld Pm Tendril Sts 6f46cm [id number] - [id number] - [id number] Implanted:Qty: 1 on 08/24/2018 by Naveen Velasquez MD at [facility] Lead [employer] 04/09/[id number] / [id number] / [id number] Gen Pm Assurity Mri Dr Rf [id number] - [id number] - [id number] Implanted:Qty: 1 on 08/24/2018 by Naveen Velasquez MD at [facility] Pacemaker [employer] 01/08/2020 [id number] / [id number] / [id number] Procedures Procedure Name Priority Date/Time Associated Diagnosis Comments PROTIME-INR Routine 12/07/2024 SCANNED - TELEMETRY 11/19/2024 1 0:00 AM EDT KENIA W/ CONTRAST, COMPLETE DOPPLER, COLOR AND 3D STAT 11/19/2024 9:21 AM EDT HEMOGLOBIN A1C Add-On 11/19/2024 9:06 AM EDT CBC (NO DIFF) Routine 11/19/2024 9:06 AM EDT Persistent atrial fibrillation BASIC METABOLIC PANEL Routine 11/19/2024 9:06 AM EDT Persistent atrial fibrillation PROTIME-INR STAT 11/19/2024 9:06 AM EDT REMOTE DEVICE CHECK 11/18/2024 2 :00 AM EDT SCANNED - LABS 11/10/2024 PROTIME-INR Routine 11/09/2024 SCANNED - LABS 11/03/2024 PROTIME-INR Routine 11/02/2024 [...] 10:20 AM EDT SCANNED - LABS 10/05/2024 OCCULT BLOOD X 1, STOOL Urgent 02/12/2024 12:11 PM EST SCANNED - COLONOSCOPY 10/17/2020 LIPID PANEL STAT 05/04/2020 8:41 AM EST from Last 3 Months or Most Recently Relevant to Health Maintenance Results * Protime-INR (12/07/2024) Only the most recent of7 resultswithin the time period is included. INR 1.28 Blood 12/07/2024 Historical Provider MD LAB BLOOD ORDERABLES Lee Ann l Result * Telemetry Scan (11/19/2024 10:00 AM EDT) [facility] Onbase ECG ORDERABLES Final Result * KENIA W/ [...] Resul t * (ABNORMAL) CBC (No Diff) (11/19/2024 9:06 AM EDT) Only the most recent of2 resultswithin the time period is included. WBC 8.05 3.40 - 10.80 10*3/mm3 11/19/2024 9:26 AM EDT [facility] RBC 3.35(L) 3.77 - 5.28 10*6/mm3 11/19/2024 9:26 AM EDT [facility] Hemoglobin 10.3(L) 12.0 - 15.9 g/dL 11/19/2024 9:26 AM EDT [facility] Hematocrit 32.7(L) 34.0 - 46.6 % 11/19/2024 9:26 AM EDT [facility] MCV 97.6(H) 79.0 - 97.0 fL 11/19/2024 9:26 AM EDT [facility] MCH 30.7 26.6 - 33.0 pg 11/19/2024 9:26 AM EDT [facility] MCHC 31.5 31.5 - 35.7 g/dL 11/19/2024 9:26 AM EDT [facility] RDW 15.1 12.3 - 15.4 % 11/19/2024 9:26 AM EDT [facility] RDW-SD 54.2(H) 37.0 - 54.0 fl 11/19/2024 9:26 AM EDT [facility] MPV 9.3 6.0 - 12.0 fL 11/19/2024 9:26 AM EDT [facility] Platelets 340 140 - 450 10*3/mm3 11/19/2024 9:26 AM EDT [facility] Blood Line / Unknown 11/19/2024 9: 06 AM EDT 11/19/2024 9:22 AM EDT us Ekaterina SMITH LAB BLOOD ORDERABLES Final Res ult [facility]
[address] [place] [address], * (ABNORMAL) Hemoglobin A1c (11/19/2024 9:06 AM EDT) Hemoglobin A1C 8.79(H) 4.80 - 5.60 % 11/19/2024 10:50 AM EDT [facility] Blood Line / Unknown 11/19/2024 9: 06 AM EDT 11/19/2024 9:22 AM EDT Narrative [facility] - 11/19/2024 10:50 AM EDT Hemoglobin A1C Ranges: Increased Risk for Diabetes 5.7% to 6.4% Diabetes >= 6.5% Diabetic Goal < 7.0% Naveen Velasquez MD LAB BLOOD ORDERABLES Final R esult [facility]
[address] [place] [address], * (ABNORMAL) Basic Metabolic Panel (11/19/2024 9:06 AM EDT) Glucose 303(H) 65 - 99 mg/dL 11/19/2024 9:59 AM EDT [facility] BUN 24.9(H) 8.0 - 23.0 mg/dL 11/19/2024 9:59 AM EDT [facility] Creatinine 1.02(H) 0.57 - 1.00 mg/dL 11/19/2024 9:59 AM EDT [facility] Sodium 132(L) 136 - 145 mmol/L 11/19/2024 9:59 AM EDT [facility] Potassium 4.2 3.5 - 5.2 mmol/L 11/19/2024 9:59 AM EDT [facility] Chloride 91(L) 98 - 107 mmol/L 11/19/2024 9:59 AM EDT [facility] CO2 27.0 22.0 - 29.0 mmol/L 11/19/2024 9:59 AM EDT [facility] Calcium 8.9 8.6 - 10.5 mg/dL 11/19/2024 9:59 AM EDT [facility] BUN/Creatinine Ratio 24.4 7.0 - 25.0 11/19/2024 9:59 AM EDT [facility] Anion Gap 14.0 5.0 - 15.0 mmol/L 11/19/2024 9:59 AM EDT [facility] eGFR 58.2(L) >60.0 mL/min/1.7 3 11/19/2024 9:59 AM EDT [facility] Blood Line / Unknown 11/19/2024 9: 06 AM EDT 11/19/2024 9:21 AM EDT Narrative [facility] - 11/19/2024 9:59 AM EDT GFR [...] not include race as a factor us Ekaterina SMITH LAB BLOOD ORDERABLES Final Res ult [facility]
[address] [place] [address], * Remote Device Check (11/18/2024 2:00 AM EDT) Date Time Interrogation Session [id number] [facility] Type Interrogation Session Remote Scheduled [facility] Implantable Pulse Generator Pe Manager [employer] [facility] Implantable Pulse Generator Type IPG [facility] Implantable Pulse Generator Model 2272 Assurity MRI(TM) [facility] Implantable Pulse Generator Serial Number [id number] [facility] Implantable Pulse Generator Implant Date [id number] [facility] Battery Remaining Percentage 36.00 % [facility] Battery Remaining Longevity 41.0 mo [facility] Battery Voltage 2.960 [facility] [employer] [facility] Battery REFORMATORY ATTENDANT Trigger 2.600 [facility] Battery Status Middle of Service [facility] [employer] Statistic RA Percent Paced 1.00 [facility] [employer] Statistic RV Percent Paced 99.00 [facility] Atrial Tachy Statistic AT/AF [place] Percent 99.00 [facility] [employer] [facility] Lead Channel RA Sensing Intrinsic Amplitude 0.900 [facility] [employer] [facility] Lead Channel Setting RA Sensing Sensitivity 0.50 [facility] Lead Channel RA Impedance Value 430 [facility] Lead Channel Setting RA Pacing Amplitude 2.000 [facility] Lead Channel Setting RA Pacing Pulse Width 0.6 [facility] Lead Channel RV Sensing Intrinsic Amplitude 12.000 [facility] Lead Channel Setting RV Sensing Sensitivity 2.00 [facility] Lead Channel RV Impedance Value 480 [facility] Lead Channel Setting RV Pacing Amplitude 2.000 [facility] Lead Channel Setting RV Pacing Pulse Width 0.5 [facility] [employer] Setting Mode (NBG Code) DDDR [facility] [employer] Setting Lower Rate Limit 60 [facility] [place] Setting AT Mode Switch Rate 160 [facility] Setting Maximum Tracking Rate 125 [facility] [place] Setting Maximum Sensor Rate 115 [facility] [employer] Setting PAV Delay 180 [facility] [place] Setting IZZY Delay 150 [facility] Lead Channel Setting RA Sensing Polarity Bipolar [facility] Lead Channel Setting RV Sensing Polarity Bipolar [facility] Lead Channel Setting RA Pacing Polarity Bipolar [facility] Lead Channel Setting RV Pacing Polarity Bipolar [facility] Lead Channel RA Pacing Threshold Polarity Bipolar [facility] Lead Channel RV Pacing Threshold Polarity Bipolar [facility] 11/18/2024 2:00 AM EDT Naveen Velasquez MD CV IMPLANTABLE CARDIAC DEVIC E Final Result [facility] * LABS SCANNED (11/10/2024) Only the most recent of5 resultswithin the time period is included. [facility] LAB BLOOD ORDERABLES Final Re sult * [...] CV ECHO ORDERABLES Final Resul t * Occult Blood X 1, Stool - Stool, Per Rectum (02/12/2024 12:11 PM EST) Fecal Occult Blood Negative Negative DISK DIFFUSION 02/12/2024 1:13 PM EST [facility] Stool Specimen from rectum / Unknown Collection / Unknown 02/12/2024 12:11 PM EST 02/12/2024 12:31 PM EST Shannen Foy RODDING MACHINE TENDER BODY FLUIDS AND STOOLS ORDERABLES Final Result [facility]
[address] [place] [address], * SCANNED - COLONOSCOPY (10/17/2020) Sujit Christine MD CHART REVIEW TABS Lee Ann lee Result from Last 3 Months or Most Recently Relevant to Health Maintenance Insurance [facility] Medicare Advantage [employer] PPO Advance Directives [...] Of Support Discussed With: Patient Care Teams Manager Account Management Relationship Specialty Start Date End Date Alisa Kunz DO [address] [place] [address] PCP - General Internal Medicine 04/26/21
--- OUTSIDE RECORDS SUMMARY | 2025-01-05 15:54 | XMS_ITS | Encounter Summary ---
Author Organization [facility] Address [address] [place] [address] Care Team Providers Care Final Assembly Inspector Name Role Phone Alisa Kunz DO Unavailable [phone] Kodi Bustos DO Unavailable [phone] Sujit Arriola MD Unavailable [phone] Sujit Reyes MD Unavailable [phone] Zee Lazar DO Unavailable [phone] Alisa Kunz DO Primary Care Provider [phone] Milli KELLEY RN, Fili Noonan Unavailable [phone] Encounter Details Date Type Department Care Team (Late st Contact Info) Description 12/23/2024 Telephone [facility] Medicine Specialties [address], [address] [place] [address] Lavern Shoemaker MD [address] [place] [address] Social History Tobacco Use Types [...] 12/27/2024 [facility] - Occupational Stress Questionnaire Answer [...] in a senior living (including now)? No 12/22/2024 [facility] Utilities Answer Date Recorded In the past 12 months has e [employer], gas, oil, or water [employer] threatened to shut off services in your [...] drink first t anselmo in the morning (EYE-PROJECT PORTFOLIO ANALYST) to steady your nerves or to [...] 1 Month) No 12/23/2024 9:00 AM EDT Shantal Srivastava RN 2. Non-Specific Active Suici dillon Thoughts (Past 1 Month) No 12/23/2024 9:00 AM EDT Lesa Srivastava cia, RN 6. Suicidal Behavior (Lifetime) No 9:00 AM EDT Shantal Srivastava RN documented as of this encounter Miscellaneous Notes * Telephone Encounter - Jocelyne Myles - 12/23/2024 11:16 AM EDT Clinical Concern/Question Reason for Call: Pt is calling to r/s 12/23 apt. States next available in April is too far. Please call. Best contact number: [phone] (mobile) Optimal time of day to reach caller: ANYTIME Additional comments/information from caller: None Note: Please do not reply to this message. Follow-up communication and further actions as a result of this message need to be communicated with the patient directly, if the patient is not active onMyChart. If the patient is active on MyChart, they will receive notification of the communication/outcome via [employer]. documented in this encounter Plan of Treatment Upcoming Encounters Date Type Department Care Team (Late st Contact Info) Description 01/06/2025 2:00 PM EDT Office Visit [facility] Medicine Specialties [address], [address] [place] [address] Lavern Shoemaker MD [address] [place], [place] [id number] 01/12/2025 1:10 PM EST Office Visit [facility] Medicine Specialties [address], [address] [place] [address] Noris Yee MD [address] [place] [address] 01/12/2025 2:00 PM EST Office Visit [facility] [address] [place] [address] Ezra Fine MD [address] [place] [address] 01/27/2025 10:00 AM EST Office Visit [facility] [address], 1st [place] [address] Sujit Cole, REGIONAL LIAISON [address] [place] [address] 02/02/2025 8:40 AM EST Office Visit [facility] Internal Medicine [address], 3rd [place] [address] Alisa Kunz, [address] [place] [address] 02/09/2025 12:20 PM EST Office Visit [facility] Endocrinology [address] [place] [address] Anne-Marie Kolb, REGIONAL LIAISON [address] [place] [address] 04/18/2025 2:40 PM EST Office Visit [facility] Endocrinology [address] [place] [address] Anne-Marie Kolb, REGIONAL LIAISON 2[address] [facility] [address] [place] [address] documented as of this encounter [...] documented as of this encounter Care Teams Final Assembly Inspector Relationship Specialty Start Date End Date Alisa Kunz DO [address] [place] [address] PCP - General Internal Medicine 12/07/24 Alisa Kunz DO [address] [place] [address] Internal Medicine 11/21/23 Kodi Bustos DO [address] [address] Surgeon Cardiothoracic Surgery 11/06/22 Sujit Arriola MD [address] [place] [address] Consulting Physician Pulmonary Disease 11/06/22 Sujit Reyes MD [address] [place] [address] Referring Physician 12/04/22 Zee Lazar DO [address] [place], [place] [id number] Resident 09/08/24 Fili Morley III, RN [address] [facility], [address] [place] [id number] Furniture Refinisher 12/22/24 01/05/25 documented as of this encounter
--- OUTSIDE RECORDS SUMMARY | 2025-01-05 15:54 | XMS_ITS | Encounter Summary ---
Author Organization [facility] Address [address] [place] [address] Care Team Providers Care Business Banking Officer Name Role Phone Pcp, No Primary Care Provider Unavailabl e Alisa Kunz DO Unavailable [phone] Kodi Bustos DO Unavailable [phone] Sujit Arriola MD Unavailable [phone] Sujit Reyes MD Unavailable [phone] Patricia Yañez LPN Unavailable Unavailab Zee Lr DO Unavailable [phone] Alisa Kunz DO Primary Care Provider [phone] Encounter Details Date Type Department Care Team (Late st Contact Info) Description 10/14/2024 [facility] Medicine Specialties [address], [address] [place] [address] Cristian Zimmer MD [address] [place] [address] Social History Tobacco Use Types [...] Questionnaire-2 Score 0 10/27/2024 [facility] - Occupational Stress Questionnaire Answer Date [...] any time in the past 12 m [facility], were you homeless or living in a penitentiary (including now)? No 11/22/2024 [facility] Utilities Answer Date Recorded In the past 12 months has [facility] [employer], gas, oil, or water [employer] threatened to shut off services in your [...] drink first t anselmo in the morning (EYE-OUTSIDE EVENT SALES SPECIALIST) to steady your nerves or to [...] occasion? Never 10/14/2024 11:04 AM Rozina Clarke * Over the past 2 weeks, how often have you been bothered by any of the following problems? Question Answer Date of Assessment Author Little interest or pleasure in doing things Not at all 10/27/2024 2:09 PM EDLia Olmedo Feeling down, depressed, or hopeless Not at all 10/27/2024 2:09 PM Lia Marie Patient Health Questionnaire -2 Score 0 10/27/2024 2:09 PM JANET Lia Espinosa * Calculated C-SSRS Risk Score (Lifetime/Recent) Answer Date of Assessment Author No Risk Indicated 12/06/2024 11:25 AM EDT Allsion Hartley * Question Answer Date of Assessment Author 1. Wish to be (Past 1 Month) No 025 11:25 AM EDAllison Lacey 2. Non-Specific Active Suici dillon Thoughts (Past 1 Month) No 12/06/2024 11:25 AM EDT Rod Hartley 6. Suicidal Behavior (Lifetime) No 11:25 AM EDT Allison Hartley documented as of this encounter Plan of Treatment Upcoming Encounters Date Type Department Care Team (Late st Contact Info) Description 01/06/2025 2:00 PM EDT Office Visit [facility] Specialties [address] [place] [address] Lavern Shoemaker MD [address] [place], [place] [id number] 01/12/2025 1:10 PM EST Office Visit [facility] [address], [address] [place] [address] Noris Yee MD [address] [place] [address] 01/12/2025 2:00 PM EST Office Visit [facility] [address] [place] [address] Ezra Fine MD [address] [place] [address] 01/27/2025 10:00 AM EST Office Visit [facility] [address], [address] [place] [address] Sujit Cole, YAMILET [address] [place] [address] 02/02/2025 8:40 AM EST Office Visit [facility] Internal Medicine [address] 3rd [place] [address] Alisa Kunz, [address] [place] [address] 02/09/2025 12:20 PM EST Office Visit [facility] Endocrinology [address] [place] [address] Anne-Marie Kolb, OBGYN NURSE 2[address] [facility] [address] [place] [address] 04/18/2025 2:40 PM EST Office Visit [facility] Endocrinology [address] [place] [address] Anne-Marie Kolb, OBGYN NURSE [address] [address] documented as of this encounter [...] documented as of this encounter Care Teams Business Banking Officer Relationship Specialty Start Date End Date Pcp, No [address] [place] [address] PCP - General Family Medicine 11/21/23 12/06/24 Alisa Kunz DO [address] [address] PCP - General Internal Medicine 12/07/24 Alisa Kunz DO [address] [address] Internal Medicine 11/21/23 Kodi Bustos DO [address] [address] Surgeon Cardiothoracic Surgery 11/06/22 Sujit Arriola MD [address] [place] [address] Consulting Physician Pulmonary Disease 11/06/22 Sujit Reyes MD [address] [place] [address] Referring Physician 12/04/22 Patricia Yañez LPN [facility] TCM Nurse 08/25/24 10/17/24 Zee Lazar DO [address] [place] [id number] Resident 09/08/24 documented as of this encounter
--- OUTSIDE RECORDS SUMMARY | 2025-01-05 15:54 | XMS_ITS | Encounter Summary ---
Author Organization [facility] Address [address] [place] [address] Care Team Providers Care Cut Out Worker Name Role Phone Alisa Kunz DO Unavailable [phone] Kodi Bustos DO Unavailable [phone] Sujit Arriola MD Unavailable [phone] Sujit Reyes MD Unavailable [phone] Zee Lazar DO Unavailable [phone] Alisa Kunz DO Primary Care Provider [phone] Milli KELLEY RN, Fili Noonan Unavailable [phone] Reason for Visit * Reason Onset Date Comments HCN Clinical Concern/Question 12/24/2024 Encounter Details Date Type Department Care Team (Late st Contact Info) Description 12/24/2024 Telephone [facility] Internal Medicine [address], 3rd [place] [address] Alisa Kunz DO [address] [place] [address] HCN Clinical Concern/Question Social History [...] Recorded Patient Health Questionnaire-2 Score 2 12/27/2024 [facility] of Occupat ional [facility] - Occupational Stress Questionnaire Answer [...] in a snf (including now)? No 12/22/2024 [facility] Utilities Answer Date Recorded In the past 12 months has e [employer], gas, oil, or water [employer] threatened to shut off services in your [...] first t anselmo in the morning (EYE-SERVICE PLANNER) to steady your nerves or to [...] Telephone Encounter - Alisa Kunz DO - 12/24/2024 1:10 PM EDT Thank you! * Telephone Encounter - Sofia Hernadez - 12/24/2024 12:53 PM EDT Clinical Concern/Question Reason for Call: pt is being dc'd from hospital today. [facility] will resume home health Friday. Please call if you have any questions thx Best contact number: Other: [phone] Optimal time of day to reach caller: ANYTIME Additional comments/information from caller: None Note: Please do not reply to this message. Follow-up communication and further actions as a result of this message need to be communicated with the patient directly, if the patient is not active onMyChart. If the patient is active on MyChart, they will receive notification of the communication/outcome via [employer]. documented in this encounter Plan of Treatment Upcoming Encounters Date Type Department Care Team (Late st Contact Info) Description 01/06/2025 2:00 PM EDT Office Visit [facility] [address] [place] [address] Lavern Shoemaker MD [address] [place] [address] 01/12/2025 1:10 PM EST Office Visit [facility] [address], [address]nd [place] [address] Noris Yee MD [address] [facility] [address] [place] [address] 01/12/2025 2:00 PM EST Office Visit [facility] [address] [place] [address] Ezra Fine MD [address] [place] [address] 01/27/2025 10:00 AM EST Office Visit [facility] [address] [place] [address] Sujit Cole, AUDIT DIRECTOR [address] [place] [address] 02/02/2025 8:40 AM EST Office Visit [facility] Internal Medicine [address], 3rd [place] [address] Alisa Kunz DO [address] [place] [address] 02/09/2025 12:20 PM EST Office Visit [facility] Endocrinology [address] [place] [address] Anne-Marie Kolb, AUDIT DIRECTOR 2[address] [facility] 125 [place] [address] 04/18/2025 2:40 PM EST Office Visit [facility] Endocrinology [address] [place] [address] Anne-Marie Kolb, AUDIT DIRECTOR 2[address] [facility] [address] [place] [address] documented as of this encounter [...] documented as of this encounter Care Teams Cut Out Worker Relationship Specialty Start Date End Date Alisa Kunz DO [address] [place] [address] PCP - General Internal Medicine 12/07/24 Alisa Kunz DO [address] [place] [address] Internal Medicine 11/21/23 Kodi Bustos DO [address] [address] Surgeon Cardiothoracic Surgery 11/06/22 Sujit Arriola MD [address] [place] [address] Consulting Physician Pulmonary Disease 11/06/22 Sujit Reyes MD [address] [place] [address] Referring Physician 12/04/22 Zee Lazar DO [address] [place], [place] [id number] Resident 09/08/24 Fili Morley III, RN [address] [facility], [address] [place] [address] Mold Shop Supervisor 12/22/24 01/05/25 documented as of this encounter
--- OUTSIDE RECORDS SUMMARY | 2025-01-05 15:54 | XMS_ITS | Encounter Summary ---
Author Organization [facility] Address [address] [place] [address] Care Team Providers Care Casting Coordinator Name Role Phone Alisa Kunz DO Unavailable [phone] Kodi Bustos DO Unavailable [phone] Sujit Arriola MD Unavailable [phone] Sujit Reyes MD Unavailable [phone] Zee Lazar DO Unavailable [phone] Alisa Kunz DO Primary Care Provider [phone] Milli KELLEY RN, Fili Noonan Unavailable [phone] Reason for Visit * Reason Onset Date Comments HCN Clinical Concern/Question 12/20/2024 Encounter Details Date Type Department Care Team (Late st Contact Info) Description 12/20/2024 Telephone [facility] Internal Medicine [address]rd [place] [address] Alisa Kunz DO [address] [place] [address] HCN Clinical Concern/Question Social History [...] Patient Health Questionnaire-2 Score 0 10/27/2024 [facility] of Occupat ional [facility] - Occupational Stress Questionnaire Answer Date [...] living in a mcc (including now)? No 12/22/2024 [facility] Utilities Answer Date Recorded In the past 12 months has e [email or web address], gas, oil, or water [employer] threatened to shut off services in your [...] drink first t anselmo in the morning (EYE-ADULT SECONDARY EDUCATION INSTRUCTOR) to steady your nerves or to [...] Date of Assessment Author No Risk Indicated 12/21/2024 11:49 PM EDT Angeline Pearson RN * Question Answer Date of Assessment Author 1. Wish to be (Past 1 Month) No 025 11:49 PM EDT Angeline Bennett RN 2. Non-Specific Active Suici dillon Thoughts (Past 1 Month) No 12/21/2024 11:49 PM EDT Sepideh Bennett RN 6. Suicidal Behavior (Lifetime) No 11:49 PM EDT Angeline Bennett RN documented as of this encounter Miscellaneous Notes * Telephone Encounter - Shannen Stephens - 12/22/2024 8:42 AM EDT Is went to the ER and is now admitted in the hospital * Telephone Encounter - Shannen Stephens - 12/21/2024 4:17 PM EDT Tried calling pt back to see if she called an ambulance since her o2 was low as well as her pulse no answer * Telephone Encounter - Alisa Kunz DO - 12/21/2024 1:08 PM EDT If swelling is worsening and oxygen is not at goal with supplemental O2 will need to go to hospitalfor consideration for aggressive inpatient fluid management- could also reach out to gis coordinator at [facility] to see if they want to try to adjust outpatient (her kidneys make that difficult to do outpatient). * Telephone Encounter - Sofia Hernadez Satya - 12/20/2024 3:25 PM EDT Clinical Concern/Question Reason for Call: pt has called, states both legs swollen, left worse then right. She takes Lasix, it doesn't seem to be helping. Please call to discuss. thx Best contact number: [phone] (mobile) Optimal time of day to reach caller: ANYTIME Additional comments/information from caller: None Note: Please do not reply to this message. Follow-up communication and further actions as a result of this message need to be communicated with the patient directly, if the patient is not active onMyChart. If the patient is active on MyChart, they will receive notification of the communication/outcome via [employer]. documented in this encounter Plan of Treatment Upcoming Encounters Date Type Department Care Team (Late st Contact Info) Description 01/06/2025 2:00 PM EDT Office Visit [facility] Medicine [address], [address] [place] [address] Lavern Shoemaker MD [address] [place] [address] 01/12/2025 1:10 PM EST Office Visit [facility] Medicine Specialties [address]nd [place] [address] Noris Yee MD [address] [place] [address] 01/12/2025 2:00 PM EST Office Visit [facility] [address] [place] [address] Ezra Fine MD [address] [place] [address] 01/27/2025 10:00 AM EST Office Visit [facility] [address] [place] [address] Sujit Cole, CLINICAL PSYCHOLOGIST PRIVATE PRACTICE [address] [place] [address] 02/02/2025 8:40 AM EST Office Visit [facility] Internal Medicine [address], [address]rd [place] [address] Alisa Kunz, DO [address] [place] [address] 02/09/2025 12:20 PM EST Office Visit [facility] Endocrinology [address] [place] [address] Anne-Marie Kolb, CLINICAL PSYCHOLOGIST PRIVATE PRACTICE [address] [facility] [address] [place] [address] 04/18/2025 2:40 PM EST Office Visit [facility] Endocrinology [address] [place] [address] Anne-Marie oKlb, CLINICAL PSYCHOLOGIST PRIVATE PRACTICE [address] [facility] [address] [place] [address] documented as of this encounter [...] documented as of this encounter Care Teams Casting Coordinator Relationship Specialty Start Date End Date Alisa Kunz DO [address] [place] [address] PCP - General Internal Medicine 12/07/24 Alisa Kunz DO [address] [place] [address] Internal Medicine 11/21/23 Kodi Bustos DO [address] [place] [address] Surgeon Cardiothoracic Surgery 11/06/22 Sujit Arriola MD [address] [place] [address] Consulting Physician Pulmonary Disease 11/06/22 Sujit Reyes MD [address] [place] [address] Referring Physician 12/04/22 Zee Lazar DO [address] [place], [place] [id number] Resident 09/08/24 Fili Morley III, RN [address] [facility], [address] [place] [address] Transfer Station Operator 12/22/24 01/05/25 documented as of this encounter
--- OUTSIDE RECORDS SUMMARY | 2025-01-05 15:54 | XMS_ITS | Clinical Summary ---
Author Organization [employer] ([place], [place], [place], [place]) Address [address] [place] [address] Care Team Providers Care Timekeeper Name Role Phone Unavailable Primary Care Provider [...]
--- OUTSIDE RECORDS SUMMARY | 2025-01-05 15:55 | XMS_ITS | Encounter Summary ---
Author Organization [facility] Address [address] [place] [address] Care Team Providers Care Hand Glove Cleaner Name Role Phone Alisa Kunz DO Unavailable [phone] Kodi Bustos DO Unavailable [phone] uSjit Arriola MD Unavailable [phone] Sujit Reyes MD Unavailable [phone] Zee Lazar DO Unavailable [phone] Alisa Kunz DO Primary Care Provider [phone] Milli KELLEY RN, Fili Noonan Unavailable [phone] Reason for Visit * Reason Onset Date Comments [facility] Same Day Appt/Overbook Request 12/28/2024 Encounter Details Date Type Department Care Team (Late st Contact Info) Description 12/28/[address] [facility] Internal Medicine [address] [place] [address] Alisa Kunz DO [address] [place] [address] [facility] Same Day Appt/Overbook Request Social History Tobacco Use Types Packs/Day Years [...] [facility] [...] in a group home (including now)? No 12/22/2024 [facility] Utilities Answer Date Recorded In the past 12 months has e [employer], gas, oil, or water company threatened to [...] drink first t anselmo in the morning (EYE-C WINFORMS DEVELOPER) to steady your nerves or to [...] encounter Miscellaneous Notes * Telephone Encounter - Margaret Lee - 12/28/2024 12:00 PM EDT Please see telephone encounter regarding this task, thank you * Telephone Encounter - Julius Be - 12/28/2024 10:32 AM EDT Same Day Appt/Overbook Request Reason for Call: patient is exhausted and could not make the appt for ELIZABETH/ she also went to the ED last night, for more testing / daughter states coming back all abnormal/ please call to add her on for [facility] ED follow up/ nothing until MAR/ ELIZABETH is out of range now too Best contact number: Other: [phone] [facility] Optimal time of day to reach caller: [...] [facility] Medicine Specialties [address] [place] [address] Lavern Shoemaker MD [address] [place], [place] [id number] 01/12/2025 1:10 PM EST Office Visit [facility] Medicine Specialties [address] [place] [address] Noris Yee MD [address] [place] [address] 01/12/2025 2:00 PM EST Office Visit [facility] [address] [place] [address] Ezra Fine MD [address] [place] [address] 01/27/2025 10:00 AM EST Office Visit [facility] [address] [place] [address] Sujit Cole, MUSIC PUBLICIST [address] [place] [address] 02/02/2025 8:40 AM EST Office Visit [facility] Internal Medicine [address] [place] [phone] Alisa Kunz, DO [address] [place] [address] 02/09/2025 12:20 PM EST Office Visit [facility] Endocrinology [address] [place] [phone] Anne-Marie Kolb, MUSIC PUBLICIST [address] [place] [address] 04/18/2025 2:40 PM EST [facility] [address] [place] [phone] Anne-Marie Kolb, MUSIC PUBLICIST [address] [place] [address] documented as of this encounter [...] as of this encounter Care Teams Hand Glove Cleaner Relationship Specialty Start Date End Date Alisa Kunz DO [address] [place] [phone] PCP - General Internal Medicine 12/07/24 Alisa Kunz DO [address] [place] [address] Internal Medicine 11/21/23 Kodi Bustos DO [address] [place] [phone] Surgeon Cardiothoracic Surgery 11/06/22 Sujit Arriola MD [address] [place] [address] Consulting Physician Pulmonary Disease 11/06/22 Sujit Reyes MD [address] [place] [address] Referring Physician 12/04/22 Zee Lazar DO [address] [place], [place] [id number] Resident 09/08/24 Fili Morley III, RN [address] [facility], [address] [place] [id number] Die Sinker 12/22/24 01/05/25 documented as of this encounter
--- OUTSIDE RECORDS SUMMARY | 2025-01-05 15:55 | XMS_ITS | Encounter Summary ---
Author Organization [facility] Address [address] [place] [address] Care Team Providers Care Employee Benefits Coordinator Name Role Phone Alisa Kunz DO Unavailable [phone] Kodi Bustos DO Unavailable [phone] Sujit Arriola MD Unavailable [phone] Sujit Reyes MD Unavailable [phone] Zee Lazar DO Unavailable [phone] Alisa Kunz DO Primary Care Provider [phone] Milli KELLEY RN, William R Unavailable [phone] Reason for Visit * Reason Comments TCM Encounter Details Date Type Department Care Team (Late st Contact Info) Description 12/24/2024 Patient Outreach [facility] [address] [facility], [address] [place] [address] Fili Morley III, RN [address] [facility], [address] [place] [address] TCM Social History Tobacco Use Types Packs/Day Years [...] Recorded Patient Health Questionnaire-2 Score 0 10/27/2024 [facility] - Occupational Stress Questionnaire Answer Date Recorded [...] in a detention (including now)? No 12/22/2024 [facility] Utilities Answer Date Recorded In the past 12 months has th e [employer], gas, oil, or water company threatened to [...] first t anselmo in the morning (EYE-MANAGER COMMISSION) to steady your nerves or to get [...] Notes * Progress Notes - Fili Morley III RN - 12/24/2024 12:59 PM EDT TCM Follow up call #1 Patient reached: Yes- Spoke with daughter and family child care center assistant director. Outcome: patient recently represented to ER 1 day post completed RAAD. Since prior discharge 11/20-11/29 for acute ischemic stroke in right temporal lobe/ HAP. Patient had developed BLE edema. EMS was called and assisted with transfer to ER. Patient was diuresed and admitted for observation. Patient noted to be feeling worse overall today. D/c 12/23 home, today reports feeling weak, very tired and nauseous; especially with movement and getting up. Not currently eating much. VS taken during TCM call- BP 125/71, HR 61, O2 95%. No other complaints noted. No SDOH barriers noted to medications/ financial/ transportation. Action: Reviewed medication changes and discharge instructions. Discussed when to represent to the ER. Sent PCP message regarding request for nausea medication. Admit Facility: [facility] Admission Date: 12/21/24 Discharge Date: 12/23/24 Diagnosis: Decompensated HF Medication changes: New- Losartan 25 mg/ day Change- Lasix 60 mg/ bid Discontinue- ASA 81 mg Items to address at ELIZABETH/ post discharge: CHF, edema, fluid volume status. ELIZABETH Appointment: 12/28/24 @ 12:40pm Provider: Chai Sheikh MD Location: [facility] Post discharge assessment complete Medication Reconciliation complete documented in this encounter Plan of Treatment Upcoming Encounters Date Type Department Care Team (Late st Contact Info) Description 01/06/2025 2:00 PM EDT Office Visit [facility] Medicine Specialties [address] [place] [phone] Lavern Shoemaker MD [address] [place] [address] 01/12/2025 1:10 PM EST Office Visit [facility] Medicine Specialties [address] [place] [address] Noris Yee MD [address] [place] [address] 01/12/2025 2:00 PM EST Office Visit [facility] Pain Medicine [address] [place] [phone] Ezra Fine MD [address] [place] [address] 01/27/2025 10:00 AM EST Office Visit [facility] [address] [place] [address] Sujit Cole, DUST BRUSH ASSEMBLER [address] [place] [address] 02/02/2025 8:40 AM EST Office Visit [facility] Internal Medicine [address] [place] [phone] Alisa Kunz, [address] [place] [address] 02/09/2025 12:20 PM EST Office Visit [facility] Endocrinology [address] [facility] [place] [address] Anne-Marie Kolb, DUST BRUSH ASSEMBLER [address] [place] [address] 04/18/2025 2:40 PM EST Office Visit [facility] Endocrinology [address] [place] [address] Anne-Marie Kolb, DUST BRUSH ASSEMBLER [address] [facility] [address] [place] [address] documented as of this encounter [...] documented as of this encounter Care Teams Employee Benefits Coordinator Relationship Specialty Start Date End Date Alisa Kunz DO [address] [place] [address] PCP - General Internal Medicine 12/07/24 Alisa Kunz DO [address] [place] [address] Internal Medicine 11/21/23 Kodi Bustos DO [address] [address] Surgeon Cardiothoracic Surgery 11/06/22 Sujit Arriola MD [address] [place] [phone] Consulting Physician Pulmonary Disease 11/06/22 Sujit Reyes MD [address] [place] [phone] Referring Physician 12/04/22 Zee Lazar DO [address] [place] [address] Resident 09/08/24 Fili Morley III, RN [address] [facility], [address] [place] [address] Actuarial Director 12/22/24 01/05/25 documented as of this encounter
--- OUTSIDE RECORDS SUMMARY | 2025-01-05 15:55 | XMS_ITS | Data Portability ---
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 Plan of Treatment Reminders Order Date Submit Date Provider Last Modified By Organization Details Last Modified Time Details Appointments None recorded. Lab CBC w/ auto diff 2023 024 [facility], [address] [facility], [place], [address], 4 14:01:33 CMP, serum or plasma 2023 024 [facility], [address] [facility], [place], [address], 4 14:52:48 factor V mutation, blood or tissue 2023 024 [facility], [address] , [place], [address], 4 13:09:38 prothrombin (factor II) [id number] mutation, blood 2023 024 [email or web address] 6 [facility], [address] , [place], [address], 4 15:45:23 factor VIII activity, plasma 2023 024 [email or web address] 6 [facility], [address] , [place], [address], 4 08:47:49 antithrombi n activity, plasma 2023 024 [facility], [address] [facility], [place], [address], 4 15:12:08 lupus anticoagula nt, plasma 2023 024 [email or web address] 6 [facility], [address] [facility], [place], [address], 4 08:47:49 anticardiol ipin igg+igm Ab, serum 2023 024 [email or web address] 6 [facility], [address] [facility], [place], [address], 4 08:47:49 protein C + protein S, functional panel, plasma 2023 024 [email or web address] [facility], [address] [place], [address], 4 08:47:50 beta-2 glycoprotei n 1 iga+igg+igm Ab, serum 2023 024 [email or web address] 6 [facility], [address] [place], [address], 4 08:47:50 Referral coumadin clinic referral 2023 024 [facility], [address] [place], [address], 5 09:13:21 home health referral [address], [address], [address]ior[address], [place], [address], 4 09:00:29 Procedures None recorded. Surgeries None [...] WBC 7.9 K/uL 4.0-10 .5 Not Available [facility] ([facility]) [address] , [place], [address], 02/09/2024 14:01:33 02/09/20 24 02/09/2024 CBC AUTO W DIFF RBC 3.2 M/mm3 4.2-6. 4 low Not Available [facility] ([facility]) [address] , [place], [address], 02/09/2024 14:01:33 02/09/20 24 02/09/2024 CBC AUTO W DIFF HGB 9.8 gm/dL 12.5-1 6.0 low Not Available [facility] ([facility]) [address] , [place], [address], 02/09/2024 14:01:33 02/09/20 24 02/09/2024 CBC AUTO W DIFF HCT 31.5 % 37.0-4 7.0 low Not Available [facility] ([facility]) [address] , [place], [address], 02/09/2024 14:01:33 02/09/20 24 02/09/2024 CBC AUTO W DIFF MCV 98.4 fL 78-100 Not Available [facility] ([facility]) [address] , [place], [address], 02/09/2024 14:01:33 02/09/20 24 02/09/2024 CBC AUTO W DIFF MCH 30.6 pg 27-31 Not Available [facility] ([facility]) [address] , [place], [address], 02/09/2024 14:01:33 02/09/20 24 02/09/2024 CBC AUTO W DIFF MCHC 31.1 g/dL 32-36 low Not Available [facility] ([facility]) [address], [place], [address], 02/09/2024 14:01:33 02/09/20 24 02/09/2024 CBC AUTO W DIFF RDW 13.0 % 11.5-1 4.0 Not Available [facility] ([facility]) [address], [place], [address], 02/09/2024 14:01:33 02/09/20 24 02/09/2024 CBC AUTO W DIFF platelet count 349 K/uL 150-45 0 Not Available [facility] ([facility]) [address], [place], [address], 02/09/2024 14:01:33 02/09/20 24 02/09/2024 CBC AUTO W DIFF MPV 9.8 fL 6-9.5 high Not Available [facility] ([facility]) [address], [place], [address], 02/09/2024 14:01:33 02/09/20 24 02/09/2024 CBC AUTO W DIFF neutrophil% 80.6 % 43-65 high Not Available [facility] ([facility]) [address], [place], [address], 02/09/2024 14:01:33 02/09/20 24 02/09/2024 CBC AUTO W DIFF lymphocyte% 8.1 % 20.5-4 5.5 low Not Available [facility] ([facility]) [address], [place], [address], 02/09/2024 14:01:33 02/09/20 24 02/09/2024 CBC AUTO W DIFF monocyte% 8.1 % 5.5-11 .7 Not Available [facility] ([facility]) [address] , [place], [address], 02/09/2024 14:01:33 02/09/20 24 02/09/2024 CBC AUTO W DIFF eosinophil% 1.5 % 0.9-2. 9 Not Available [facility] ([facility]) [address], [place], [address], 02/09/2024 14:01:33 02/09/20 24 02/09/2024 CBC AUTO W DIFF basophil% 0.4 % 0.2-1. 0 Not Available [facility] ([facility]) [address], [place], [address], 02/09/2024 14:01:33 02/09/20 24 02/09/2024 CBC AUTO W DIFF immature granulocytes % 1.3 % 0.0-0. 8 high Not Available [facility] ([facility]) [address], [place], [address], 02/09/2024 14:01:33 02/09/20 24 02/09/2024 CBC AUTO W DIFF nucleated red blood cells % 0.0 % Not Available [facility] ([facility]) [address], [place], [address], 02/09/2024 14:01:33 02/09/20 24 02/09/2024 CBC AUTO W DIFF neutrophil# 6.3 K/uL 2.2-4. 8 high Not Available [facility] ([facility]) [address] [place], [address], 02/09/2024 14:01:33 02/09/20 24 02/09/2024 CBC AUTO W DIFF lymphocyte# 0.6 cell/ mcL 1.3-2. 9 low Not Available [facility] ([facility]) [address], [place], [address], 02/09/2024 14:01:33 02/09/20 24 02/09/2024 CBC AUTO W DIFF monocyte# 0.6 cell/ mcL 0.3-0. 8 Not Available [facility] ([facility]) [address] , [place], [address], 02/09/2024 14:01:33 02/09/20 24 02/09/2024 CBC AUTO W DIFF eosinophil# 0.1 cell/ mcL 0-0.2 Not Available [facility] ([facility]) [address] , [place], [address], 02/09/2024 14:01:33 02/09/20 24 02/09/2024 CBC AUTO W DIFF basophil# 0.0 cell/ mcL 0.0-1. 0 Not Available [facility] ([facility]) [address], [place], [address], 02/09/2024 14:01:33 02/09/20 24 02/09/2024 CBC AUTO W DIFF immature gramulocytes # 0.10 K/uL Not Available [facility] ([facility]) [address], [place], [address], 02/09/2024 14:01:33 02/09/20 24 02/09/2024 CBC AUTO W DIFF nucleated red blood cells # 0.00 K/uL Not Available [facility] ([facility]) [address], [place], [address], 02/09/2024 14:01:33 02/09/20 24 02/09/2024 CBC AUTO W DIFF manual differential NO Not Available [facility] ([facility]) [address] , [place], [address], 02/09/2024 14:01:33 02/09/20 24 02/09/2024 COMP METAB OLIC PANEL sodium 136 mmol/ L 136-14 5 Not Available [facility] ([facility]) [address] , [place], [address], 02/09/2024 14:52:48 02/09/20 24 02/09/2024 COMP METAB OLIC PANEL potassium 4.5 mmol/ L 3.6-5. 0 Not Available [facility] ([facility]) [address] , [place], [address], 02/09/2024 14:52:48 02/09/20 24 02/09/2024 COMP METAB OLIC PANEL chloride 99 mmol/ L 98-107 Not Available [facility] ([facility]) [address] , [place], [address], 02/09/2024 14:52:48 02/09/20 24 02/09/2024 COMP METAB OLIC PANEL carbon dioxide 30.7 mmol/ L 21.0-3 2.0 Not Available [facility] ([facility]) [address] , [place], [address], 02/09/2024 14:52:48 02/09/20 24 02/09/2024 COMP METAB OLIC PANEL anion gap 10.8 Not Available [facility] ([facility]) [address] , [place], [address], 02/09/2024 14:52:48 02/09/20 24 02/09/2024 COMP METAB OLIC PANEL glucose 339 mg/dL 70-120 high Not Available [facility] ([facility]) [address] [place], [address], 02/09/2024 14:52:48 02/09/20 24 02/09/2024 COMP METAB OLIC PANEL BUN 19 mg/dL 7-18 high Not Available [facility] ([facility]) [address] [place], [address], 02/09/2024 14:52:48 02/09/20 24 02/09/2024 COMP METAB OLIC PANEL creatinine 1.0 mg/dL 0.6-1. 3 Not Available [facility] ([facility]) [address] , [place], [address], 02/09/2024 14:52:48 02/09/20 24 02/09/2024 COMP METAB [...] griffiths ing kiney funct ion. Not Available [facility] ([facility]) [address] , [place], [address], 02/09/2024 14:52:48 02/09/20 24 02/09/2024 COMP METAB OLIC PANEL total protein 6.8 g/dL 6.4-8. 2 Not Available [facility] ([facility]) [address] , [place], [address], 02/09/2024 14:52:48 02/09/20 24 02/09/2024 COMP METAB OLIC PANEL albumin 2.8 g/dL 3.4-5. 0 low Not Available [facility] ([facility]) [address] , [place], [address], 02/09/2024 14:52:48 02/09/20 24 02/09/2024 COMP METAB OLIC PANEL globulin 4.0 Not Available [facility]) [address] , [place], [address], 02/09/2024 14:52:48 02/09/20 24 02/09/2024 COMP METAB OLIC PANEL alb/glob ratio 0.7 0.7-2 Not Available [facility] ([facility]) [address], [place], [address], 02/09/2024 14:52:48 02/09/20 24 02/09/2024 COMP METAB OLIC PANEL calcium 8.3 mg/dL 8.5-10 .5 low Not Available [facility] ([facility]) [address] [facility], [place], [address], 02/09/2024 14:52:48 02/09/20 24 02/09/2024 COMP METAB OLIC PANEL bilirubin total 0.30 mg/dL 0.10-1 .00 Not Available [facility] ([facility]) [address] [facility], [place], [address], 02/09/2024 14:52:48 02/09/20 24 02/09/2024 COMP METAB OLIC PANEL AST (SGOT) 28 U/L 0-37 Not Available [facility] ([facility]) [address], [place], [address], 02/09/2024 14:52:48 02/09/20 24 02/09/2024 COMP METAB OLIC PANEL ALT (SGPT) 42 U/L 0-65 Not Available [facility] ([facility]) [address] [facility], [place], [address], 02/09/2024 14:52:48 02/09/20 24 02/09/2024 COMP METAB OLIC PANEL alk phosphatase 93 U/L 46-116 Not Available [facility] ([facility]) [address] [facility], [place], [address], 02/09/2024 14:52:48 02/09/20 24 02/10/2024 FACTO R [...] activ ity has [facility], a rm ic basis for the eleva tion has not yet been eluci dated (Br J Haema maida. 2012; 157:6 53-66 3). Perfo rmed at: [facility] [place] [address] [place] [address] Lab Direc tor: Eloisa pickens MD, Phone : [phone] Not Available [facility] ([facility]) [address] [place], [address], 02/10/2024 15:12:07 02/09/20 24 02/10/2024 ANTIT HROMB IN 3 ACTIV ITY antithrombin activity 132 % 75-135 Dire t Xa inhib itor antic oagul ants such as rivar oxaba n, apixa ban and edoxa ban will lead to spuri ously eleva ely antit hromb in activ ity level s possi nini maski ng a defic iency . Not Available [facility] ([facility]) [address] [facility], [place], [address], 02/10/2024 15:12:08 02/09/20 24 02/10/2024 ANTIT HROMB IN 3 ACTIV ITY antithrobmin antigen 96 % 72-124 Perfo rmed at: [facility] [place] [address] [place] [address] Lab Direc tor: Eloisa pickens MD, Phone : [phone] Not Available [facility] ([facility]) [address], [place], [address], 02/10/2024 15:12:08 02/09/20 24 02/10/2024 PROTE IN [...] rmed at: - [facility] [place] [address] , [place] [address] Lab Direc tor: Eloisa pickens MD, Phone : [phone] Not Available [facility] ([facility]) [address] [facility], [place], [address], 02/10/2024 15:12:11 02/09/20 24 02/10/2024 BETA- 2 [...] b Haem 2006; 4:295 -306. Not Available [facility] ([facility]) [address] [facility], [place], [address], 02/10/2024 15:12:12 02/09/20 24 02/10/2024 BETA- 2 [...] -306. Perfo rmed at: CB - [facility] víctor [address] [facility], [place] [address] Lab Direc tor: Wing castellano PhD, Phone : [phone] Not Available [facility] ([facility]) [address], [place], [address], 02/10/2024 15:12:12 02/09/20 24 02/10/2024 BETA- 2 [...] b Haem 2006; 4:295 -306. Not Available [facility] ([facility]) [address], [place], [address], 02/10/2024 15:12:12 02/09/20 24 02/10/2024 PROTE IN [...] Perfo rmed at: - [facility] [place] [address] [facility] [place] [address] Lab Direc tor: Eloisa pickens MD, Phone : [phone] Not Available [facility] ([facility]) [address] [facility], [place], [address], 02/10/2024 17:10:27 02/09/20 24 02/10/2024 CARDI OLIPI N AB IGM anticardioli pin Ab, IgM <9 mpl_U /mL 0-12 Negat stevne: <13 Indet ermin ate: 13 - 20 Low-M ed Posit steven: >20 - 80 High Posit steven: >80 Perfo rmed at: - [facility] [address] [place] [address] Lab Direc tor: Wing castellano PhD, Phone : [phone] Not Available [facility] ([facility]) [address] [place], [address], 02/10/2024 17:10:28 02/09/20 24 02/10/2024 CARDI OLIPI N AB IGG anticardioli pin Ab, IgG <9 gpl_U /mL 0-14 Negat steven: <15 Indet ermin ate: 15 - 20 Low-M ed Posit steven: >20 - 80 High Posit steven: >80 Perfo rmed at: - [facility] [address] [facility], [place] [id number] Lab Direc tor: Wing castellano PhD, Phone : [phone] Not Available [facility] ([facility]) [address] [facility], [place], [address], 02/10/2024 17:10:29 02/09/20 24 02/11/2024 LUPUS ANTIC OAGUL ANT PTT-la 60.2 sec 0.0-43 .5 high Not Available [facility] ([facility]) [address] [facility], [place], [address], 02/11/2024 13:12:04 02/09/20 24 02/11/2024 LUPUS ANTIC OAGUL ANT drvvt 50.8 sec 0.0-47 .0 high Not Available [facility] ([facility]) [address] [facility], [place], [address], 02/11/2024 13:12:04 02/09/20 24 02/11/2024 LUPUS ANTIC [...] rmed at: - [facility] [place] [address] [place] [address] Lab Direc tor: Eloisa pickens MD, Phone : [phone] Not Available [facility] ([facility]) [address] [facility], [place], [address], 02/11/2024 13:12:04 02/09/20 24 02/11/2024 LUPUS ANTIC OAGUL ANT PTT-la 60.2 sec 0.0-43 .5 high Not Available [facility] ([facility]) [address] [facility], [place], [address], 02/11/2024 13:12:05 02/09/20 24 02/11/2024 LUPUS ANTIC OAGUL ANT drvvt 50.8 sec 0.0-47 .0 high Not Available [facility] ([facility]) [address] [facility], [place], [address], 02/11/2024 13:12:05 02/09/20 24 02/11/2024 LUPUS ANTIC [...] rmed at: - [facility] [place] [address] [place] [address] Lab Direc tor: Eloisa pickens MD, Phone : [phone] Not Available [facility] ([facility]) [address] [place], [address], 02/11/2024 13:12:05 02/09/20 24 02/11/2024 LUPUS ANTIC OAGUL ANT PTT-la mix 54.4 sec 0.0-40 .5 high Perfo rmed at: - [facility] [place] [address] [place] [address] Lab Direc tor: Eloisa pickens MD, Phone : [phone] Not Available [facility] ([facility]) [address] [place], [address], 02/11/2024 13:12:05 02/09/20 24 02/11/2024 LUPUS ANTIC OAGUL ANT PTT-la 60.2 sec 0.0-43 .5 high Not Available [facility] ([facility]) [address] [place], [address], 02/11/2024 13:12:06 02/09/20 24 02/11/2024 LUPUS ANTIC OAGUL ANT hexagonal phase phospholipid 5 sec 0-11 Perfo rmed at: [facility] [place] [address] [place] [address] Lab Direc tor: Eloisa pickens MD, Phone : [phone] Not Available [facility] ([facility]) [address] [place], [address], 02/11/2024 13:12:06 02/09/20 24 02/11/2024 LUPUS ANTIC OAGUL ANT drvvt 50.8 sec 0.0-47 .0 high Not Available [facility] ([facility]) [address] [place], [address], 02/11/2024 13:12:06 02/09/20 24 02/11/2024 LUPUS ANTIC [...] oagul ant thera py. Perfo rmed at: [facility] [address] [place] [address] Lab Direc tor: Eloisa pickens MD, Phone : [phone] Not Available [facility] ([facility]) [address] [place], [address], 02/11/2024 13:12:06 02/09/20 24 02/11/2024 LUPUS ANTIC OAGUL ANT PTT-la mix 54.4 sec 0.0-40 .5 high Perfo rmed at: [facility] [place] [address] [place] [address] Lab Direc tor: Eloisa pickens MD, Phone : [phone] Not Available [facility] ([facility]) [address] [place], [address], 02/11/2024 13:12:06 02/09/20 24 02/11/2024 LUPUS ANTIC OAGUL ANT PTT-la 60.2 sec 0.0-43 .5 high Not Available [facility] ([facility]) [address] [place], [address], 02/11/2024 13:12:08 02/09/20 24 02/11/2024 LUPUS ANTIC OAGUL ANT hexagonal phase phospholipid 5 sec 0-11 Perfo rmed at: [facility] [place] [address] [place] [address] Lab Direc tor: Eloisa pickens MD, Phone : [phone] Not Available [facility] ([facility]) [address] [facility], [place], [address], 02/11/2024 13:12:08 02/09/20 24 02/11/2024 LUPUS ANTIC OAGUL ANT drvvt 50.8 sec 0.0-47 .0 high Not Available [facility] ([facility]) [address] [facility], [place], [address], 02/11/2024 13:12:08 02/09/20 24 02/11/2024 LUPUS ANTIC OAGUL ANT drvvt mix 39.6 sec 0.0-40 .4 Perfo rmed at: - [facility] [address] [place] [address] Lab Direc tor: Eloisa pickens MD, Phone : [phone] Not Available [facility] ([facility]) [address] [place], [address], 02/11/2024 13:12:08 02/09/20 24 02/11/2024 LUPUS ANTIC [...] at: BN - [facility] [place] [address] [place], [place] [address] Lab Direc tor: Eloisa pickens MD, Phone : [phone] Not Available [facility] ([facility]) [address], [place], [address], 02/11/2024 13:12:08 02/09/20 24 02/11/2024 LUPUS ANTIC OAGUL ANT PTT-la mix 54.4 sec 0.0-40 .5 high Perfo rmed at: [facility] [address] [place] [address] Lab Direc tor: Eloisa pickens MD, Phone : [phone] Not Available [facility] ([facility]) [address] [place], [address], 02/11/2024 13:12:08 02/09/20 24 02/16/2024 FACTO R [...] Facto r V Leide n (PMID : 89613 767). Ad ditio nal risk facto rs [...] ders to discu ss resul ts at [phone]- GENE (2327 ). . Test Detai ls: Varia nt brendan zed: c.*97 G>A, previ ously refer red to as G2021 0 A . Metho ds/Li mitat ions: DNA brendan sis of the F2 gene (NM_0 11888 .5) was perfo rmed by P CR [...] devel oped and its perfo rmanc e sya cteri stics deter mined by [facility] rp. It has not been clear ed or appro juan manuel by the Food and Drug Admin istra tion. . Refer ences : Jose Tsang, Javier RECINOS, David Noonan, Dot HIGGINS, Hung in ; [facility] Pro fessi onal Pract ice and Guide lines Commi ttee. Adden dum: Monster montgomery e of Medic al Rm ics conse nsus state ment on facto r V Leide n muta tion testi ng. Rm Med. 2020May 12. doi: 10.10 38/s4 1436- 021-0 110 8-x. PMID: 57504 767. . Saumya scruggs JL. Proth rombi [...] Medic al Rm ics and Genom ics ([facility] ). Rm Med. 2018 Feb;2 0(12) :148 9-149 8. doi: 10.10 38/s4 1436- 018-0 322-z . Epub 2017Dec 12. PMID: 87817 698. Not Available [facility] ([facility]) [address] [facility], [place], [address], 02/16/2024 10:08:44 02/09/20 24 02/16/2024 FACTO R II, DNA BRENDAN SIS reviewed by: Syd mckeon Techn ical Ecorse nent perfo rmed at [facility] RTP Profe harry al Ecorse nent perfo rmed by: . Alexia Santiago, Ph.D. , [facility] Direc tor, Molec ular Rm ics [address] [facility] [address] Perfo rmed at: TG - [facility] rp RTP [address] [facility] , [place] [address] Lab Direc tor: Aicha Silver [facility] , Phone : [phone] Not Available [facility] ([facility]) [address] [facility], [place], [address], 02/16/2024 10:08:44 02/09/20 24 02/16/2024 FACTO R [...] Facto r V Leide n (PMID : 61475 767). Addit ional risk facto rs inclu [...] ders to discu ss resul ts at [phone] -446- GENE (4363 ). . Test Detai ls: Varia nt Brendan zed: c.160 1G>A (p. Arg53 4Gln) , refer red to as Facto r V Leide n . Metho ds/Li mitat ions: DNA brendan sis of the F5 gene (NM_0 58731 .5) was perfo rmed by PCR ampli [...] e say cteri stics deter mined by Float: [place] rp. It has not been clear ed or appro juan manuel by the Food and Drug Admin istra tion. . Refer ences : Jose S, Javier noonan [place], David houston R, Dot WW, Hung in JH; [facility] Profe ssion al Pract ice and Guide lines Commi ttee. Adden dum: Monster St ge of Medic al Rm ics conse nsus state ment on facto r V Leide n mutat ion testi ng. Rm Med. 2020May 12. doi: 10.10 38/s4 1436- 021-0 1108- x. PMID: 76573 767. . Saumya VILLALTA. Facto r V Leide n Throm bophi barrie. 1998July 21 (Upda ley 2017Mar 13). In: Kwadwo MP, Howard sutton HH, Heydi RA, et al., inderjitito rs. GeneR tawanna s(R) (Inte rnet) . Ulysses mackey ([place]): Unive rsity of [place] Ulysses mackey; 1992- 2020. Avail able from: https ://ww w.ncb i.nlm .nih. gov/b ooks/ NBK13 68/ . Ck S, Javier r [place], Edgar X, Ceasar B, Spect or EB, Jennifer P, Wendy rds CS; [facility] Labor atory Quali ty Assur ance Commi ttee. Venou s throm boemb olism labor atory testi ng (fact or V Leide n and facto r II c.*97 G>A), 2018 updat e: a techn ical stand juana of the Monster St ge of Medic al Rm ics and Genom ics ([facility] ). Rm Med. 2018 Feb;2 0(12) :1489 -1498 . doi: 10. 38/s4 1436- 018-0 322-z . Epub 2017Dec 12. PMID: 96981 698. Not Available [facility] ([facility]) [address], [place], [address], 02/16/2024 13:09:38 02/09/20 24 02/16/2024 FACTO R V LEIDE N MUTAT ION reviewed by: SYD Mckeon Techn ical [place] nent perfo rmed at [facility] RTP Profmiya mcdonald al [place] nent perfo rmed by: . Alexia Santiago, Ph.D. , [facility] Dire tor, [facility] ular Rm ics [address] [facility] [id number] Perfo rmed at: TG - [facility] RTP [address] [facility] , [place] [id number] [facility] tor: Aicha Silver [facility] , Phone : [phone] Not Available [facility] ([facility]) [address], [place], [address], 02/16/2024 13:09:38 Result Notes None recorded. Procedures Surgical History Date Name Laterality Status Provider Name and Address Organization Details Recorded Time vitrectomy completed Roseanne Workman [place] - [facility] [facility] & [place] 02/09/2024 12:07:46 cardiac pacemaker procedure completed Roseanne RIVERA [facility] & [place] 02/09/2024 12:08:13 cardiac catheterization completed Roseanne RIVERA [facility] & [place] 02/09/2024 12:08:20 biopsy of lung completed Roseanne RIVERA [facility] & [place] 02/09/2024 12:09:20 section completed Roseanne RIVERA [facility] & [place] 02/09/2024 12:10:10 Carpal tunnel surgery completed Roseanne RIVERA [facility] & [place] 02/09/2024 12:11:21 cardiopulmonary bypass operation completed Roseanne RIVERA [facility] & [place] 02/09/2024 12:11:59 Imaging Results None recorded. Procedure Notes None recorded. Medical Equipment None Reported. Allergies Allergen ID Allergen Name Allergen Category Reaction Reaction Severity Criticality Documentation Date Start Date Code Code System Note Provider Name and Address Organization Details Recorded Time 695329 Product containin g penicilli n (product) medicatio n Not available Not available Not available 02/09/2024 65320 8001 SNOMED ODALYS Fleming [facility] & [place] 4 12:02:48 991210 tetracycl ine medicatio n Not available Not available Not available 02/09/2024 21763 RxNorm ODALYS Fleming [facility] & [place] 4 12:02:55 773097 Keflex medicatio n Not available Not available Not available 02/09/2024 64727 7 RxNorm ODALYS Fleming [facility] & [place] 4 12:03:06 414638 codeine medicatio n Not available Not available Not available 02/09/2024 2670 RxNorm ODALYS Fleming [facility] & [place] 12:03:14 523824 morphine medicatio n Not available Not available Not available 02/09/2024 7052 RxNorm ODALYS Fleming LPNT [facility] & [place] 4 12:03:20 170404 Crestut medicatio n Not available Not available Not available 02/09/2024 89379 4 RxNorm ODALYS Fleming LPNT [facility] & [place] 4 12:03:25 Medications Name Sig Start Date [...] Updated DateTime 4 162.56 cm 25.9 kg/m2 81126.7 3 g 97.8 [degF] 97 % 97 % 64 /min 145/78 mm[Hg] Roseanne [facility] & [place] 4 12:30:28 Social History None recorded. Functional Status Question Answer Note LastModified by Organizat ion Details LastModified Time Do you use any illicit or recreational drugs? No [email or web address] Information not available 02/09/2024 What is your level of alcohol consumption? Moderate 1-2 vodka daily [id number] Information not available 02/09/2024 Mental Status None recorded. Family History Nothing Reported. Medical History No medical history recorded. Gynecological HistoryNo gynecological history recorded. Obstetrics History GPAL:G 0 P 0 0 0 0 Immunizations Vaccine Type Date Status Note Provider Nam e and Address Organization Details Recorded Time zoster recombinant 9 completed Roseanne Workman null, [place] [facility] [place] 02/09/2024 12:01:48 zoster recombinant 9 completed Rose[place] Work[place] [facility] - [facility] [place] 02/09/2024 12:01:48 Influenza, high-dose, quadrivalent, PF 3 completed Rose[place] Work[place] 02/09/2024 12:01:48 Influenza, high-dose, quadrivalent, PF 2 completed [place] & [place] 02/09/2024 12:01:48 COVID-19, mRNA, LNP-S, PF, 30 mcg/0.3 mL dose 1 completed Rose[place] 02/09/2024 12:01:48 COVID-19, mRNA, LNP-S, PF, 30 mcg/0.3 mL dose 1 completed Rose[place] 02/09/2024 12:01:48 pneumococcal polysaccharide PPV23 9 completed Rose[place] [facility] [place] 02/09/2024 12:01:48 Pneumococcal conjugate PCV 13 7 completed Rose[place] 02/09/2024 12:01:48 Pneumococcal conjugate PCV 13 0 completed [place] 02/09/2024 12:01:48 Influenza, high-dose, trivalent, PF 4 completed [place] 02/09/2024 12:01:48 Influenza, high-dose, trivalent, PF 1 completed [place] 02/09/2024 12:01:48 Influenza, high-dose, trivalent, PF 8 completed [place] 02/09/2024 12:01:48 Influenza, high-dose, trivalent, PF 9 completed ODALYS Fleming - [place] & [place] 02/09/2024 12:01:48 Influenza, split virus, trivalent, preservative 9 completed ODALYS Fleming - [place] & [place] 02/09/2024 12:01:48 Hep A, adult 9 completed Roseanne medina, ODALYS RIVERA - [place] & [place] 02/09/2024 12:01:48 Hep A, adult 9 completed ODALYS Fleming - [place] & [place] 02/09/2024 12:01:48 Past Encounters Encounter ID Performer Location Encounter Start Date Encounter Closed Date Diagnosis/Indication Diagnosis SNOMED-CT Code Diagnosis ICD10 Code Diagnosis IMO Codes Diagnosis Note [id number] Yue Brown PA-C [facility] Oncology and Hematolog y [address] [place] [address] 02/09/2024 11:34:59 02/09/2024 14:48:17 Thrombosis 064409122 I82.90 Patient developed dyspnea and went to the [facility] ED on February 02, 2024 for [...] recommenda tions Thrombus o f cardiac chamber 027951954 I51.3 Patient developed dyspnea and went to the [facility] ED on February 02, 2024 for [...] with further recommenda tions Anticoagulant therapy 18 5284079 Z79.01 Patient has been transition ed to warfarin due to DOAC failure. Will schedule follow-up with [facility] for monitoring . Muscle weakness 15349170 M62.81 Patient is using a walker and would benefit from home health physical therapy. Will order. Difficulty managing medication [id number] Z73.89 Patient states she has trouble managing her medication s and gets confused easily. Will order home health for medication management . Systemic l upus erythematosus 26743074 M32.9 Patient has a history of lupus and follows with [facility]. Health Concerns Section Related Observation LastModified by Organization Detai ls LastModified Time None Recorded Concern Status LastModified by Organization Details LastModified Time None Recorded Advance Directives Directive None Recorded Payers Insurance Date Sequence Insurance Name Policy Number Policy Byrne Covered Member ID Byrne Member ID Guarantor Name 03/08/2024 1 [facility] (MEDICARE REPLACEMENT/A DVANTAGE - PPO) [id number] Michelle Felipe [id number] Michelle Felipe 02/09/2024 1 [facility] (MEDICARE REPLACEMENT/A DVANTAGE - HMO) Michelle Felipe [id number] Michelle Felipe Notes Date Note Type Note Provider Name and Address Organization Details Recorded Time 02/09/2024 text/html 74-year-old female presents for evaluation of arterial thrombus. Patient developed dyspnea and went to the [facility] ED on February 02, 2024 for [...] up with further recommendations Yue Brown PA-C [address], [place], [address], [place] 02/09/2024 13:50:22 OBGyn Episode No OBEpisode recorded.
--- OUTSIDE RECORDS SUMMARY | 2025-01-05 15:55 | XMS_ITS | Encounter Summary ---
Author Organization [facility] Address [address] [place] [address] Care Team Providers Care Central Office Repairer Name Role Phone Alisa Kunz DO Unavailable [phone] Kodi Bustos DO Unavailable [phone] Sujit Arriola MD Unavailable [phone] Sujit Reyes MD Unavailable [phone] Zee Lazar DO Unavailable [phone] Alisa Kunz DO Primary Care Provider [phone] Encounter Details Date Type Department Care Team (Late st Contact Info) Description 12/18/[address] [facility] Primary Care [address] [place] [address] Benjamín Grigsby MD [address] [place] [address] Social History Tobacco Use Types Packs/Day Years [...] Score 0 10/27/2024 [facility] [...] in the past 12 m [facility], were you homeless or living in a group home (including now)? No 11/22/2024 [facility] Utilities Answer Date Recorded In the [...] drink first t anselmo in the morning (EYE-FBI SHARPSHOOTER) to steady your nerves or to get [...] encounter Miscellaneous Notes * Telephone Encounter - Benjamín Grigsby MD - 12/18/2024 8:44 PM EDT After Hours Patient Call Michelle Felipe called our after-hours line with complaint of increased urination and urinary incontinence after reportedly being started on furosemide due to leg swelling at a recent hospitalization for acute stroke. She has also noticed worsening dyspnea since hospital discharge. We discussed the risk of stopping furosemide if she is already having worsening dyspnea, and that she may need to be seen in person either way due to the dyspnea and potential need for alternative medication regimen. Encouraged her to visit ED or urgent care today, and either way to call the clinic on Friday. Benjamín Grigsby MD 12/18/24 documented in this encounter Plan of Treatment Upcoming Encounters Date Type Department Care Team (Late st Contact Info) Description 01/06/2025 2:00 PM EDT Office Visit [facility] Medicine Specialties [address] [place] [address] Lavern Shoemaker MD [address] [place] [address] 01/12/2025 1:10 PM EST Office Visit [facility] Medicine Specialties [address], [address] [place] [address] Noris Yee MD [address] [place] [address] 01/12/2025 2:00 PM EST Office Visit [facility] [address] [place] [address] Ezra Fine MD [address] [place] [address] 01/27/2025 10:00 AM EST Office [facility] [place] [facility] [address] [place] [address] Sujit Cole, BOOTS AND SHOES SUPERVISOR [address] [place] [address] 02/02/2025 8:40 AM EST Office Visit [facility] Internal Medicine [address] [place] [address] Alisa Kunz L, DO [address] [place] [address] 02/09/2025 12:20 PM EST Office Visit [facility] Endocrinology [address] [place] [address] Anne-Marie Kolb, BOOTS AND SHOES SUPERVISOR [address] [facility] [address] [place] [address] 04/18/2025 2:40 PM EST Office Visit [facility] Endocrinology [address] [place] [address] Anne-Marie Kolb, BOOTS AND SHOES SUPERVISOR [address] [facility] [address] [place] [address] documented as of this [...] documented as of this encounter Care Teams Central Office Repairer Relationship Specialty Start Date End Date Alisa Kunz DO [address] [place] [address] PCP - General Internal Medicine 12/07/24 Alisa Kunz DO [address] [place] [address] Internal Medicine 11/21/23 Kodi Bustos DO [address] [address] Surgeon Cardiothoracic Surgery 11/06/22 Sujit Arriola MD [address] [place] [address] Consulting Physician Pulmonary Disease 11/06/22 Sujit Reyes MD [address] [place] [address] Referring Physician 12/04/22 Zee Laazr DO [address] [place], [place] [id number] Resident 09/08/24 documented as of this encounter
--- OUTSIDE RECORDS SUMMARY | 2025-01-05 15:55 | XMS_ITS | Encounter Summary ---
Author Organization [facility] Address [address] [place] [address] Care Team Providers Care Nursery Laborer Name Role Phone Alisa Kunz DO Unavailable Kodi Bustos DO Unavailable [phone] Sujit Arriola MD Unavailable [phone] Sujit Reyes MD Unavailable [phone] Zee Lazar DO Unavailable [phone] Alisa Kunz DO Primary Care Provider [phone] Encounter Details Date Type Department Care Team (Latest Contact Info) Description 12/21/2024 Travel Social History Tobacco Use Types Packs/Day [...] Recorded Patient Health Questionnaire-2 Score 0 10/27/2024 [facility] [...] care (including now)? No 12/22/2024 [facility] Utilities Answer Date Recorded In the [...] first t anselmo in the morning (EYE-ROOM SERVICE FOOD SERVER) to steady your nerves or to [...] Month) No 025 11:49 PM EDT Angeline Bennett, EVITA 2. Non-Specific Active Suici dillon Thoughts (Past 1 Month) No 12/21/2024 11:49 PM EDT Sepideh Bennett RN 6. Suicidal Behavior (Lifetime) No 11:49 PM EDT Angeline Bennett RN documented as of this encounter Plan of Treatment Upcoming Encounters Date Type Department Care Team (Late st Contact Info) Description 01/06/2025 2:00 PM EDT Office Visit [facility] Medicine Specialties [address] [place] [address] Lavern Shoemaker MD [address] [place] [address] 01/12/2025 1:10 PM EST Office Visit [facility] Medicine [facility] [address], [address] [place] [address] Noris Yee MD [address] [facility] [address] [place] [address] 01/12/2025 2:00 PM EST Office Visit [facility] [address] [place] [address] Ezra Fine MD [address] [facility] [address] [place] [address] 01/27/2025 10:00 AM EST Office Visit [facility] [address] [place] [address] Sujit Cole, CONTOUR GRINDER [address] [place] [address] 02/02/2025 8:40 AM EST Office Visit [facility] Internal Medicine [address] 3rd [place] [address] Alisa Kunz DO [address] [place] [address] 02/09/2025 12:20 PM EST Office Visit [facility] Endocrinology [address] [place] [address] Anne-Marie Kolb, CONTOUR GRINDER [address] [facility] [address] [place] [address] 04/18/2025 2:40 PM EST Office Visit [facility] Endocrinology [address] [place] [address] Anne-Marie Kolb, CONTOUR GRINDER [address] [facility] [address] [place] [address] documented as [...] documented as of this encounter Care Teams Nursery Laborer Relationship Specialty Start Date End Date Alisa Kunz DO [address] [place] [address] PCP - General Internal Medicine 9/30/25 Alisa Kunz DO [address] [place] [address] Internal Medicine 11/21/23 Kodi Bustos DO [address] [address] Surgeon Cardiothoracic Surgery 11/06/22 Sujit Arriola MD [address] [place] [address] Consulting Physician Pulmonary Disease 11/06/22 Sujit Reyes MD [address] [place] [address] Referring Physician 12/04/22 Zee Lazar DO [address] [place], [place] [id number] Resident 09/08/24 documented as of this encounter
--- OUTSIDE RECORDS SUMMARY | 2025-01-05 15:55 | XMS_ITS | Encounter Summary ---
Author Organization [facility] Address [address] [place] [address] Care Team Providers Care Leather Drier Name Role Phone Alisa Kunz DO Unavailable [phone] Kodi Bustos DO Unavailable [phone] Sujit Arriola MD Unavailable [phone] Sujit Reyes MD Unavailable [phone] Zee Lazar DO Unavailable [phone] Alisa Kunz DO Primary Care Provider [phone] Milli KELLEY RN, William R Unavailable [phone] Reason for Visit * Reason Comments HRCM Encounter Details Date Type Department Care Team (Late st Contact Info) Description 12/24/2024 Patient Outreach POPULATION [facility] [address] [facility] [place] [address] Fili Morley III, RN [address] [facility], [address] [place] [address] CM Social History Tobacco Use [...] Recorded Patient Health Questionnaire-2 Score 2 12/27/2024 [facility] - Occupational Stress Questionnaire Answer [...] living in a intermediate (including now)? No 12/22/2024 [facility] Utilities Answer Date Recorded In the past 12 months has e [employer], gas, oil, or water company threatened to [...] drink first t anselmo in the morning (EYE-BROTH MIXER) to steady your nerves or to [...] Notes - Fili Morley III, RN - 12/24/2024 2:13 PM EDT HRCM Enrollment 12/24/2024 HRCM Program Service: [x] Hospital medicine [] Family Medicine or [] Other PCP: [x] Internal or [] External Hospital Admission Info: [facility] Discharge Date: 12/23/24 Primary Dx: Acute on chronic CHF Secondary Dx: BLE swelling Number of Admissions (last 6 Mos.): 5 Outreach to Patient [x] Outreach 1: 12/24/24 [] Outreach 2: [] Outreach 3: [x] Enrollment Date: 12/24/24 Risk & Needs Assessment/Summaries Functional/Cognitive/Behavioral Health Status: Currently patient is very weak/ tired. Will f/u later to readdress functional status. Update patient is very limited due to chronic debility. Patient noted that she feels like her health status is poor and that likely she is close to the end of life ingeneral. Unable to do ADL's without assistance, but noted has a caregiver that comes 7 days/ week to assist with cooking, cleaning, dressing, etc. Caregiver/Support System: Daughter, family transitions rn care coordinator. Medications: Changes since discharge: Yes Barriers to RX Access: No Referred to Pharmacy or FAP: No Summary: Care Gaps & Preventive Needs [] Open Care Gaps: Annual Wellness Visit (AWV), Immunizations , and Mammography Summary: [] Chronic Condition Monitoring Summary: CHF- continue to monitor fluid volume status, soa, BP [] Specialty Follow-Ups Needed: Endocrinology- 12/27/24 @ 9:40 am ELIZABETH- 12/28/24 @ 12:40 pm IVPM- 01/05/25 @ 11 am Neuro- 01/27/25 @ 10 am PCP- 02/02/25 @ 8:40 am SDOH SDOH Update: Other: [any other barriers, any issues, etc.] and Care Gaps: [Health Maintenance] Mobility impaired. Patient-Centered Care Plan Patient???s Stated Goals (short- and long-term): Patient would like to improve functional mobility and strength and overall quality of life. Nurse Navigator Goals (prevent readmission, medication optimization, connect to community resources): Prevent readmission. Planned Interventions [x] Frequency of outreach weekly for first 30 days [x] Home visits vs. phone follow-up [] Collaboration Needed: [] Pharmacy, [] FAP, [] LINK [] CHW [x] Education provided [x] Condition-specific [x] Red flag symptoms [x] When to call vs. when to go to ED [x] Graduation Plan: 30-90 days Next Steps & Follow-Up Planned outreach Summary: [x] Upcoming appointments confirmed: Yes [x] Date [x] Task Set ? Patient enrolled in [facility]. Care plan initiated. Population Health Nurse: Fili Morley III, RN documented in this encounter Plan of Treatment Upcoming Encounters Date Type Department Care Team (Late st Contact Info) Description 01/06/2025 2:00 PM EDT Office Visit [facility] Medicine Specialties [address] [place] [address] Lavern Shoemaker MD [address] [place], [place] [phone] 01/12/2025 1:10 PM EST Office Visit [facility] Medicine Specialties [address] [place] [address] Noris Yee MD [address] [place] [address] 01/12/2025 2:00 PM EST Office Visit [facility] [address] [place] [address] Ezra Fine MD [address] [place] [address] 01/27/2025 10:00 AM EST Office Visit [facility] [address] [place] [address] Sujit Cole APRN [address] [place] [address] 02/02/2025 8:40 AM EST Office Visit [facility] Internal Medicine [address]rd [place] [address] Alisa Kunz, [address] [place] [address] 02/09/2025 12:20 PM EST Office Visit [facility] Endocrinology [address] [place] [address] Anne-Marie Kolb, WASTEWATER PLANT OPERATOR [address] [place] [address] 04/18/2025 2:40 PM EST Office Visit [facility] Endocrinology [address] [place] [address] Anne-Marie Kolb, WASTEWATER PLANT OPERATOR [address] [facility] [address] [place] [address] documented as of this [...] documented as of this encounter Care Teams Leather Drier Relationship Specialty Start Date End Date Alisa Kunz DO [address] [address] PCP - General Internal Medicine 12/07/24 Alisa Kunz DO [address] [place] [address] Internal Medicine 11/21/23 Kodi Bustos DO [address] [address] Surgeon Cardiothoracic Surgery 11/06/22 Sujit Arriola MD [address] [place] [address] Consulting Physician Pulmonary Disease 11/06/22 Sujit Reyes MD [address] [place] [address] Referring Physician 12/04/22 Zee Lazar DO [address] [place] [address] Resident 09/08/24 Fili Morley III, RN [address] [facility], [address] [place] [address] Automatic Machine Attendant 12/22/24 01/05/25 documented as of this encounter
--- OUTSIDE RECORDS SUMMARY | 2025-01-05 15:55 | XMS_ITS | Encounter Summary ---
Author Organization [facility] Address [address] [place] [address] Care Team Providers Care Quality Assurance Practice Manager Name Role Phone Alisa Kunz DO Unavailable [phone] Kodi Bustos DO Unavailable [phone] Sujit Arriola MD Unavailable [phone] Sujit Reeys MD Unavailable [phone] Zee Lazar DO Unavailable [phone] Alisa Kunz DO Primary Care Provider [phone] Milli KELLEY RN, William R Unavailable [phone] Reason for Visit * Reason Comments HRCM Encounter Details Date Type Department Care Team (Late st Contact Info) Description 12/28/2024 Patient Outreach POPULATION HEALTH [address] [facility] [address] [place] [address] Fili Morley III, RN [address] [facility], [address] [place] [address] CM Social History Tobacco Use [...] How often do you attend chur or scientologist services? 1 to 4 times per year [...] Recorded Patient Health Questionnaire-2 Score 2 12/27/2024 [facility] - Occupational [...] in the past 12 m [facility], were you homeless or living in a usp (including now)? No 12/22/2024 [facility] Utilities Answer Date Recorded In the past 12 months has e [employer], gas, oil, or water company threatened to [...] drink first t anselmo in the morning (EYE-PROPERTY DAMAGE CLAIMS ADJUSTOR) to steady your nerves or to get [...] Notes - Fili Morley III, RN - 12/28/2024 1:39 PM EDT [facility] Outreach Completed on: 12/28/2024 -- Patient not reached, LVM Health Assessment: Symptom Changes/Updates: UTR. LVM. Additional Information Medications/Refills: Changes: Yes If Yes, specify: Toujeo increased to 8 units in the AM Insulin Lispro decreased to 2-3 units before meals. Barriers to RX Access: No: Referred to Pharmacy or FAP:No: If Yes, specify: Care Plan: Care Plan Updates: Health Goals Updates: Care Gaps: Pop Health:Annual Wellness Visit (AWV), Immunizations , and Mammography Update and/or Changes: SDOH Update: Other: [any other barriers, any issues, etc.] and Care Gaps: [Health Maintenance] Limited mobility Patient Care Information: Recent Discharge: 12/23/24 Follow-Up Appointment Info: Encounter Information Provider Department Dept Phone Address 12/28/2024 3:00 PM (Arrive by 2:40 PM) Alisa Kunz DO [facility] Internal Medicine [phone], 3rd Floor [facility] [address] 01/05/2025 10:00 AM (Arrive by 9:30 AM) GS MR 2 PAV S Radiology [phone], 1[address] Floor [facility] [address] 01/06/2025 2:00 PM (Arrive by 1:40 PM) Lavern Shoemaker MD MD Clinic Medicine Specialties [phone], 2nd Floor Wing [address] [facility] [address] 01/12/2025 2:00 PM (Arrive by 1:40 PM) Ezra Fine MD Interventional Pain Medicine [phone], [address] [facility] [address] Caregiver Support System: Daughter, family child care sitter. Education Provided: Next Steps: Scheduled Follow-Up:Will f/u within the next week. Population Health Nurse: Fili Morley III, RN documented in this encounter Plan of Treatment Upcoming Encounters Date Type Department Care Team (Late st Contact Info) Description 01/06/2025 2:00 PM EDT Office Visit [facility] [place] Specialties [address], 2nd [place] [address] Lavern Shoemaker MD [address] [place], [place] [id number] 01/12/2025 1:10 PM EST Office Visit [facility] [place] Specialties [address], 2nd [place] [address] Noris Yee MD [address] [facility] [address] [place] [address] 01/12/2025 2:00 PM EST Office Visit [facility] Pain Medicine [address], [address] [place] [address] Ezra Fine MD [address] [place] [address] 01/27/2025 10:00 AM EST Office Visit [facility] [address], 1st [place] [address] Sujit Cole, ADJUSTER ELECTRICAL CONTACTS [address] [place] [address] 02/02/2025 8:40 AM EST Office Visit [facility] Internal Medicine [address], 3rd [place] [address] Alisa Kunz DO [address] [place] [address] 02/09/2025 12:20 PM EST Office Visit [facility] Endocrinology [address] [place] [address] Anne-Marie Kolb, ADJUSTER ELECTRICAL CONTACTS 2[address] [facility] Medicine [address] [place] [address] 04/18/2025 2:40 PM EST Office Visit [facility] Endocrinology [address] [place] [address] Anne-Marie Kolb, ADJUSTER ELECTRICAL CONTACTS [address] [address] documented as of this encounter [...] of this encounter Care Teams Quality Assurance Practice Manager Relationship Specialty Start Date End Date Alisa Kunz DO [address] [place] [address] PCP - General Internal Medicine 12/07/24 Alisa Kunz DO [address] [place] [address] Internal Medicine 11/21/23 Kodi Bustos DO [address] [phone] Surgeon Cardiothoracic Surgery 11/06/22 Sujit Arriola MD [address] [place] [address] Consulting Physician Pulmonary Disease 11/06/22 Sujit Reyes MD [address] [place] [address] Referring Physician 12/04/22 Zee Lazar DO [address] [place] [address] Resident 09/08/24 Fili Morley III, RN [address] [facility], [address] [place] [address] Pond Scaler 12/22/24 01/05/25 documented as of this encounter
--- OUTSIDE RECORDS SUMMARY | 2025-01-05 15:55 | XMS_ITS | Encounter Summary ---
Author Organization [facility] Address [address] [place] [address] Care Team Providers Care Agronomy Manager Name Role Phone Alisa Kunz DO Unavailable [phone] Kodi Bustos DO Unavailable [phone] Sujit Arriola MD Unavailable [phone] Sujit Reyes MD Unavailable [phone] Zee Lazar DO Unavailable [phone] Alisa Kunz DO Primary Care Provider [phone] Milli KELLEY RN, Fili Noonan Unavailable [phone] Reason for Visit * Reason Onset Date Comments Appointment 12/28/2024 Encounter Details Date Type Department Care Team (Late st Contact Info) Description 12/28/2024 Telephone [facility] Medicine Specialties [address], 2nd [place] [address] [place] [address] Appointment Social History Tobacco Use Types Packs/Day [...] Questionnaire-2 Score 2 12/27/2024 [facility] [...] living in a longterm (including now)? No 12/22/2024 [facility] Utilities Answer Date Recorded In the past 12 months has e [employer], gas, oil, or water company threatened to [...] first t anselmo in the morning (EYE-SUPERVISOR SCREEN MAKING) to steady your nerves or to get [...] encounter Miscellaneous Notes * Telephone Encounter - Juanito Sterling RN - 12/30/2024 12:44 PM EDT Called patient to get her scheduled with Dr. Yee for 01/12/2025 at 1:10 PM. Patient would liketo see Dr. Yee and is okay with appt on 01/12/2025 if that is the earliest we can get with him. Patient scheduled. She had no further questions/concerns at this time. * Telephone Encounter - Noris Yee MD - 12/29/2024 6:01 PM EDT We can overbook her January 12 at 1.10 PM (overbook). Please tell her I will be out for a week due to ACR. Earliest I can fit her will be January 12. If she wants to be seen sooner than that, I can let one of my colleagues see her sooner. * Telephone Encounter - Parisa Lopez - 12/28/2024 4:05 PM EDT Received call from patient Patient is wanting to have a follow up with Dr Magallanes Patient states that she had a stroke and is not understanding why this happened while she was on warfarin Dr Magallanes is booked out into 2025 and patient is wanting to be seen [place] Patient states that patient's PCP is wanting to discuss patient with Dr Magallanes Patient states that her care team thought that Lupus had a big part to play in it CB: [phone] documented in this encounter Plan of Treatment Upcoming Encounters Date Type Department Care Team (Late st Contact Info) Description 01/06/2025 2:00 PM EDT Office Visit [facility] Medicine Specialties [address], 2nd [place] [address] Lavern Shoemaker MD [address] [place], [place] [id number] 01/12/2025 1:10 PM EST Office Visit [facility] Medicine Specialties [address], 2nd [place] [address] Noris Yee MD [address] [place] [address] 01/12/2025 2:00 PM EST Office Visit Interventional Pain Medicine [address], [address] [place] [address] Ezra Fine MD [address] [place] [address] 01/27/2025 10:00 AM EST [facility] [address], 1st [place] [address] Sujit Cole, VOIP NETWORK TECHNICIAN [address] [place] [address] 02/02/2025 8:40 AM EST Office Visit [facility] Internal Medicine [address], 3rd [place] [address] Alisa Kunz, DO [address] [place] [address] 02/09/2025 12:20 PM EST Office Visit [facility] Endocrinology [address] [place] [address] Anne-Marie Kolb, VOIP NETWORK TECHNICIAN [address] [place] [address] 04/18/2025 2:40 PM EST Office Visit [facility] Endocrinology [address] [place] [address] Anne-Marie Kolb, VOIP NETWORK TECHNICIAN 2[address] [facility] 125 [place] [address] documented as of this encounter [...] documented as of this encounter Care Teams Agronomy Manager Relationship Specialty Start Date End Date Alisa Kunz DO [address] [address] PCP - General Internal Medicine 12/07/24 Alisa Kunz DO [address] [place] [address] Internal Medicine 11/21/23 Kodi Bustos DO [address] [address] Surgeon Cardiothoracic Surgery 11/06/22 Sujit Arriola MD [address] [place] [address] Consulting Physician Pulmonary Disease 11/06/22 Sujit Reyes MD [address] [place] [address] Referring Physician 12/04/22 Zee Lazar DO [address] [place] [address] Resident 09/08/24 Fili Morley III, RN [address] [facility], [address] [place] [address] Senior Communications Specialist 12/22/24 01/05/25 documented as of this encounter
--- OUTSIDE RECORDS SUMMARY | 2025-01-05 15:55 | XMS_ITS | Encounter Summary ---
Author Organization [facility] Address [address] [place] [address] Care Team Providers Care Infectious Disease Physician Name Role Phone Alisa Kunz DO Unavailable [phone] Kodi Bustos DO Unavailable [phone] Sujit Arriola MD Unavailable [phone] Sujit Reyes MD Unavailable [phone] Zee Lazar DO Unavailable [phone] Alisa Kunz DO Primary Care Provider [phone] Milli KELLEY RN, Fili Noonan Unavailable [phone] Encounter Details Date Type Department Care Team (Late st Contact Info) Description 12/24/2024 Orders Only [facility] Internal Medicine [address], 3rd [place] [address] Alisa Kunz DO [address] [place] [address] Social History Tobacco Use Types [...] Recorded Patient Health Questionnaire-2 Score 0 10/27/2024 [facility] - Occupational Stress Questionnaire Answer Date Recorded [...] in a retirement (including now)? No 12/22/2024 [facility] Utilities Answer Date Recorded In the past 12 months has [employer], [employer], oil, or water [employer] threatened to shut off services in your [...] drink first t anselmo in the morning (EYE-LABOR RELATIONS WORKER) to steady your nerves or to [...] 01/06/2025 2:00 PM EDT Office Visit [facility] Medicine Specialties [address], 2nd [place] [address] Lavern Shoemaker MD [address] [place], [place] [phone] 01/12/2025 1:10 PM EST Office Visit [facility] Medicine Specialties [address], 2nd [place] [address] Noris Yee MD [address] [place] [address] 01/12/2025 2:00 PM EST Office Visit [facility] [address], [address] [place] [address] Ezra Fine MD [address] [place] [address] 01/27/2025 10:00 AM EST Office Visit [facility] [address], 1st [place] [address] Sujit Cole, PUMPER GAUGER APPRENTICE [address] [place] [address] 02/02/2025 8:40 AM EST Office Visit [facility] Internal Medicine [address], 3rd [place] [address] Alisa Kunz DO [address] [place] [address] 02/09/2025 12:20 PM EST Office Visit [facility] Endocrinology [address] [place] [address] Anne-Marie Kolb, PUMPER GAUGER APPRENTICE 2[address] [facility] 125 [place] [address] 04/18/2025 2:40 PM EST Office Visit [facility] Endocrinology [address] [place] [address] Anne-Marie Kolb, PUMPER GAUGER APPRENTICE 2[address] [facility] 125 [place] [address] documented as of this encounter [...] documented as of this encounter Care Teams Infectious Disease Physician Relationship Specialty Start Date End Date Alisa Kunz DO [address] [place] [address] PCP - General Internal Medicine 12/07/24 Alisa Kunz DO [address] [place] [address] Internal Medicine 11/21/23 Kodi Bustos DO [address] [phone] Surgeon Cardiothoracic Surgery 11/06/22 Sujit Arriola MD [address] [place] [address] Consulting Physician Pulmonary Disease 11/06/22 Sujit Reyes MD [address] [place] [address] Referring Physician 12/04/22 Zee Lazar DO [address] [place] [id number] Resident 09/08/24 Fili Morley III, RN [address] [facility], [address] [place], [place] [id number] Spear Fisher 12/22/24 01/05/25 documented as of this encounter
--- OUTSIDE RECORDS SUMMARY | 2025-01-05 15:55 | XMS_ITS | Encounter Summary ---
Author Organization [facility] Address [address] [place] [address] Care Team Providers Care Broom Handle Dipper Name Role Phone Alisa Kunz Primary Care Provider [phone] Encounter Details Date Type Department Care Team (Late st Contact Info) Description 10/07/2024 Telephone [facility] [address] [facility] [address] [place] [address] Mike Mariee, Production Expert Social History Tobacco Use Types Packs/Day Years [...] 07/2024 Potentially Unsafe Housing Conditions Not on ulisa e 10/12/2024 Disabilities Answer Date Recorded Difficulty [...] 10:26 AM EDT Cece Prieto RN * [place] Suicide Severity Rating Scale (Screener/Recent Self-Report) Question Answer Date of Assessment Author 6. Suicidal Behavior (Lifetime) No 10:26 AM EDT Cece Prieto RN documented as of this encounter Miscellaneous Notes * Telephone Encounter - Mike Mariee Production Expert - 10/07/2024 2:16 PM EDT Called patient to discuss HM or remote lab options for INR rechecks. Patient would prefer to continue with Ge HM and will schedule in clinic appt in the future to obtain replacement HM. Mike Mariee ORE CRUSHER 10/07/2024 14:18 EDT documented in this encounter Plan of Treatment Upcoming Encounters Date Type Department Care Team (Late st Contact Info) Description 01/19/2025 1:45 PM EST Office Visit [facility] CARDIOLOGY [address] [place] [address] Naveen Velasquez MD [address] [place], [place] [phone] 05/04/2026 2:45 PM EST Office Visit [facility] CARDIOLOGY [address] [place] [address] [place] [address] Sujit Reyes MD [address] [place], [place] [phone] documented as of this encounter Visit Diagnoses Not on filedocumented in this encounter Care Teams Broom Handle Dipper Relationship Specialty Start Date End Date Alisa Kunz DO [address] [facility] [address] [place], [place] [phone] PCP - General Internal Medicine 04/26/21 documented as of this encounter
--- OUTSIDE RECORDS SUMMARY | 2025-01-05 15:55 | XMS_ITS | Encounter Summary ---
Author Organization [facility] Address [address] [place] [address] Care Team Providers Care Inside Sales Engineer Name Role Phone Alisa Kunz DO Unavailable [phone] Kodi Bustos DO Unavailable [phone] Sujit Arriola MD Unavailable [phone] Sujit Reyes MD Unavailable [phone] Zee Lazar DO Unavailable [phone] Alisa Kunz DO Primary Care Provider [phone] Milli KELLEY RN, Fili Noonan Unavailable [phone] Encounter Details Date Type Department Care Team (Late st Contact Info) Description 12/28/2024 Telephone [facility] Internal Medicine [address], 3rd [place] [address] Margaret Lee Social History Tobacco Use Types Packs/Day Years [...] Recorded Patient Health Questionnaire-2 Score 2 12/27/2024 [facility] - [...] No 12/22/2024 Housing Stability Vital Sign Answer Hnog e Recorded In the last 12 months, [...] living in a chcf (including now)? No 12/22/2024 [facility] Utilities Answer Date Recorded In the past [...] drink first t anselmo in the morning (EYE-SUPERINTENDENT TESTS) to steady your nerves or to get [...] Telephone Encounter - Alisa Kunz DO - 12/28/2024 12:49 PM EDT Thank you! * Telephone Encounter - Margaret Lee - 12/28/2024 11:49 AM EDT FYI: Patient's daughter Madyson called to ask to get an appointment to see you for an ED follow up [place]. Due to you having 3 openings this afternoon, Madyson asked for her mom to be seen at 3:00 with you today. Her daughter explained that patient is exhausted and very out of it , so she requested her to possibly be seen by phone to discuss next steps. MyChart is currently down and video call has not been working, due to this, they ask for a regular phone call for discussion and for it to be on a 3-way call so patient's daughter Madyson can be available due to her mother being exhausted. Thank you documented in this encounter Plan of Treatment Upcoming Encounters Date Type Department Care Team (Late st Contact Info) Description 01/06/2025 2:00 PM EDT Office Visit [facility] Medicine Specialties [address], 2nd [place] [address] Lavern Shoemaker MD [address] [place] [address] 01/12/2025 1:10 PM EST Office Visit [facility] Medicine Specialties [address], [address]nd [place] [address] Noris Yee MD [address] [place] [address] 01/12/2025 2:00 PM EST Office Visit [facility] [address], [address] [place] [address] Ezra Fine MD [address] [place] [address] 01/27/2025 10:00 AM EST Office [facility] [address], 1st [place] [address] Sujit Cole, VOCATIONAL GUIDANCE COUNSELOR [address] [place] [address] 02/02/2025 8:40 AM EST Office Visit [facility] Internal Medicine [address], 3rd [place] [address] Alisa Kunz, DO [address] [place] [address] 02/09/2025 12:20 PM EST Office Visit [facility] Endocrinology [address] [place] [address] Anne-Marie Kolb, VOCATIONAL GUIDANCE COUNSELOR [address] [facility] [address] [place] [address] 04/18/2025 2:40 PM EST Office Visit [facility] Endocrinology [address] [place] [address] Anne-Marie Kolb, VOCATIONAL GUIDANCE COUNSELOR [address] [facility] [address] [place] [address] documented as of this encounter Visit Diagnoses [...] documented as of this encounter Care Teams Inside Sales Engineer Relationship Specialty Start Date End Date Alisa Kunz DO [address] [place] [address] PCP - General Internal Medicine 12/07/24 Alisa Kunz DO [address] [place] [address] Internal Medicine 11/21/23 Kodi Bustos DO [address] [place] [address] Surgeon Cardiothoracic Surgery 11/06/22 Sujit Arriola MD [address] [place] [address] Consulting Physician Pulmonary Disease 11/06/22 Sujit Reyes MD [address] [place] [address] Referring Physician 12/04/22 Zee Lazar DO [address] [place] [id number] Resident 09/08/24 Fili Morley III, RN [address] [place] [address], [address] [place] [id number] Film Replacement Orderer 12/22/24 01/05/25 documented as of this encounter
--- OUTSIDE RECORDS SUMMARY | 2025-01-05 15:55 | XMS_ITS | Encounter Summary ---
Author Organization [facility] Address [address] [place] [address] Care Team Providers Care Office Services Coordinator Name Role Phone Alisa Kunz DO Unavailable [phone] Kodi Bustos DO Unavailable [phone] Sujit Arriola MD Unavailable [phone] Sujit Reyes MD Unavailable [phone] Zee Lazar DO Unavailable [phone] Alisa Kunz DO Primary Care Provider [phone] Reason for Visit * Reason Onset Date Comments HCN - Patient Message 12/21/2024 Encounter Details Date Type Department Care Team (Late st Contact Info) Description 12/21/2024 Telephone [facility] Internal Medicine [address] [place] [address] Alisa Kunz DO [address] [place] [address] HCN - Patient Message Social [...] Recorded Patient Health Questionnaire-2 Score 0 10/27/2024 [facility] - Occupational [...] [place] [facility] [place] facility (including now)? No 12/22/2024 [facility] Utilities Answer Date Recorded In the past 12 months has [email or web address], [employer], oil, or water [employer] threatened to shut off services in your [...] first t anselmo in the morning (EYE-RETAIL VISUAL MERCHANDISER) to steady your nerves or to [...] Telephone Encounter - Shannen Stephens - 12/21/2024 1:50 PM EDT Called and gave vo * Telephone Encounter - Naty Sykes - 12/21/2024 1:40 PM EDT Patient Phone Message Reason for Call: she is asking for verbal orders for resumption of care for [facility] 1 tie aweek. Please call Best contact number and optimal time of day to reach caller:[phone] Note: Please do not reply to this [...] Description 01/06/2025 2:00 PM EDT Office Visit [facility] Medicine Specialties [address] [place] [phone] Lavern Shoemaker MD [address] [place] [address] 01/12/2025 1:10 PM EST Office Visit [facility] Medicine Specialties [address] [place] [address] Noris Yee MD [address] [place] [address] 01/12/2025 2:00 PM EST Office Visit Interventional Pain Medicine [address], [address] [place] [phone] Ezra Fine MD [address] [place] [address] 01/27/2025 10:00 AM EST Office Visit [facility] [address] [place] [address] Sujit Cole, LINE TECHNICIAN [address] [place] [address] 02/02/2025 8:40 AM EST Office Visit [facility] Internal Medicine [address] [place] [address] Alisa Kunz, DO [address] [place] [address] 02/09/2025 12:20 PM EST Office Visit [facility] Endocrinology [address] [place] [address] Anne-Marie Kolb, LINE TECHNICIAN [address] [place] [address] 04/18/2025 2:40 PM EST Office Visit [facility] Endocrinology [address] [place] [address] Anne-Marie Kolb, LINE TECHNICIAN [address] [facility] [address] [place] [address] documented as of this encounter [...] as of this encounter Care Teams Office Services Coordinator Relationship Specialty Start Date End Date Alisa Kunz DO [address] [place] [address] PCP - General Internal Medicine 12/07/24 Alisa Kunz DO [address] [place] [address] Internal Medicine 11/21/23 Kodi Bustos DO [address] [place] [address] Surgeon Cardiothoracic Surgery 11/06/22 Sujit Arriola MD [address] [place] [address] Consulting Physician Pulmonary Disease 11/06/22 Sujit Reyes MD [address] [place] [address] Referring Physician 12/04/22 Zee Lazar DO [address] [place] [id number] Resident 09/08/24 documented as of this encounter
--- OUTSIDE RECORDS SUMMARY | 2025-01-05 15:55 | XMS_ITS | Encounter Summary ---
Author Organization [facility] Address [address] [place] [address] Care Team Providers Care Professor Of Finance Name Role Phone Alisa Kunz Primary Care Provider [phone] Encounter Details Date Type Department Care Team (Latest Contact Info) Description 06/14/2024 Anticoagulation Visit [facility] [address] [facility] [address] [place] [address] Mike Mariee, Financial Services Auditor Left ventricular apical thrombus (Primary Dx) Social [...] Description 01/19/2025 1:45 PM EST Office Visit [facility] CARDIOLOGY [address] [place] [address] Naveen Velasquez MD [address] [facility] [address] [place] [address] 05/04/2026 2:45 PM EST Office Visit [facility] CARDIOLOGY [address] [place] [address] Sujit Reyes MD [address] [place] [address] documented as of this encounter Visit Diagnoses Diagnosis Left ventricular apical thrombus- Primary documented in this encounter Care Teams Professor Of Finance Relationship Specialty Start Date End Date Alisa Kunz DO [address] [place], [place] [phone] PCP - General Internal Medicine 04/26/21 documented as of this encounter
--- OUTSIDE RECORDS SUMMARY | 2025-01-05 15:55 | XMS_ITS | Encounter Summary ---
Author Organization [facility] Address [address] [place] [address] Care Team Providers Care Mail Rider Name Role Phone Alisa Kunz DO Unavailable [phone] Kodi Bustos DO Unavailable [phone] Sujit Arriola MD Unavailable [phone] Sujit Reyes MD Unavailable [phone] Zee Lazar DO Unavailable [phone] Alisa Kunz DO Primary Care Provider [phone] Milli KELLEY RN, Fili Noonan Unavailable [phone] Encounter Details Date Type Department Care Team (Latest Contact Info) Description 12/27/2024 Travel Social History Tobacco Use Types Packs/Day [...] Recorded Patient Health Questionnaire-2 Score 2 12/27/2024 [facility] of Occupat ional [...] a senior care (including now)? No 12/22/2024 [facility] Utilities Answer Date Recorded In the [...] t anselmo in the morning (EYE-FIRE PREVENTION SPECIALIST) to steady your nerves or to [...] Yoselin Li documented as of this encounter Plan of Treatment Upcoming Encounters Date Type Department Care Team (Late st Contact Info) Description 01/06/2025 2:00 PM EDT Office Visit [facility] Medicine [place] [address] [facility] [place], [address] [place] [address] Lavern Shoemaker MD [address] [place], [place] [phone] 01/12/2025 1:10 PM EST Office Visit [facility] Medicine [place] [address] [place] [address] Noris Yee MD [address] [facility] [address] [place] [address] 01/12/2025 2:00 PM EST Office Visit Interventional Pain Medicine [address] [place] [phone] Ezra Fine MD [address] [place] [address] 01/27/2025 10:00 AM EST Office Visit [place] [facility] [address] [place] [address] Sujit Cole, REGIONAL DIRECTOR OF ADMISSIONS [address] [place] [address] 02/02/2025 8:40 AM EST Office Visit [facility] Internal Medicine [address]rd [place] [address] Alisa Kunz L, DO [address] [place] [address] 02/09/2025 12:20 PM EST Office Visit [facility] Endocrinology [address] [place] [address] Anne-Marie Kolb, REGIONAL DIRECTOR OF ADMISSIONS [address] [facility] [address] [place] [address] 04/18/2025 2:40 PM EST Office Visit [facility] Endocrinology [address] [place] [address] Anne-Marie Kolb, REGIONAL DIRECTOR OF ADMISSIONS [address] [facility] [address] [place] [address] documented as of this encounter [...] documented as of this encounter Care Teams Mail Rider Relationship Specialty Start Date End Date Alisa Kunz DO [address] [place] [address] PCP - General Internal Medicine 12/07/24 Alisa Kunz DO [address] [place] [address] Internal Medicine 11/21/23 Kodi Bustos DO [address] [address] Surgeon Cardiothoracic Surgery 11/06/22 Sujit Arriola MD [address] [place] [address] Consulting Physician Pulmonary Disease 11/06/22 Sujit Reyes MD [address] [place] [address] Referring Physician 12/04/22 Zee Lazar DO [address] [place], [place] [phone] Resident 09/08/24 Fili Morley III, RN [address] [facility], [address] [place] [address] Manager Environmental Affairs 12/22/24 01/05/25 documented as of this encounter
--- OUTSIDE RECORDS SUMMARY | 2025-01-05 15:56 | XMS_ITS | Clinical Summary ---
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 (E10.621) L97.522 (ICD-10-CM ) 04/20 Active 04/20 Patricia Sutherland Non-pressure chronic ulcer of other part of left foot with fat layer exposed Cellulitis, foot, left 644475911 (SNOMED CT) 04/20 Active 04/20 Patricia Sutherland Cellulitis of foot Cellulitis, toe, left 36829292 (SNOMED CT) 04/20 Active 04/20 Patricia Koko Cellulitis of toe Left atrial thrombus 233267958 (SNOMED CT) 04/20 Active 04/20 Patricia Sutherland Atrial thrombosis SLE (Systemic lupus erythematosus ) 62113324 (SNOMED CT) 04/20 Active 04/20 Patricia Sutherland Systemic lupus erythematosus Presence of cardiac pacemaker 062149501 (SNOMED CT) 04/20 Active 04/20 Patricia Sutherland Cardiac pacemaker in situ Coronary artery disease, S/P CABG 269535314 (SNOMED CT) 04/20 Active 04/20 Patricia Sutherland Arteriosclerosis of coronary artery bypass graft DM, type I 57530089 (SNOMED CT) 04/20 Active 04/20 Patricia Sutherland Type 2 diabetes mellitus Benign Essential Hypertension 06753431 ([facility] CT) 04/20 Active 04/20 Patricia Sutherland Benign hypertension Medications Medication Instructions Start Date Stop Date Generic Name NDC Provider Iron (ferrous sulfate) (ferrous sulfate) ferrous sulfate [facility] B-12 1000 MCG CAPS every morning cya nocobalamin (vitamin b-12) 67198271136 [facility] LIVALO 4 MG TABS every night pitavas tatin calcium 83907700230 [facility] ZETIA 10 MG TABS every night ezetimibe 856322444 01 [facility] latanoprost (bulk) every evening bulk [facility] Zyrtec (cetirizine) every evening cetirizine [facility] MYCOPHENOLATE MOFETIL 500 MG TABS twice a day mycophenolat e mofetil 32387857645 [facility] CETIRIZINE HCL 10 MG TABS Take 1 tablet by mouth once a day 02/23 cetirizine 99974467539 [facility] BRIMONIDINE TARTRATE 0.2 % SOLN Apply 1 drop in eye as directed 06/14 brimonidine 42491599082 [facility] Trelegy Ellipta 200-62.5-25 MCG/INH inhaler Inhale 2 puff once a day 07/17 Trelegy Ellipta 200-62.5-25 MCG/INH inhaler [facility] HYDROXYCHLOROQUINE SULFATE 200 MG TABS Take 1 tablet by mouth once a day 12/05 hydroxychloroquine 20334004230 [facility] RISAQUAD CAPS Take 1 capsule by mouth once a day 04/18 l.acid,para-b.bifid um-s.therm 93685585979 [facility] LOSARTAN POTASSIUM 25 MG TABS Take 1 tablet by mouth once a day 11/17 losartan 58033908811 [facility] FOLIC ACID 1 MG TABS Take 1 tablet by mouth once a day folic acid 02848556953 [facility] PITAVASTATIN CALCIUM 2 MG TABS Take 1 tablet by mouth every night 02/23 pitavastatin calcium 88801067876 [facility] Insulin Glargine (TOUJEO SOLOSTAR SC) Inject 23 unit subcutaneously every night as directed 02/23 TOUJEO SOLOSTAR SC [facility] EZETIMIBE 10 MG TABS Take 1 tablet by mouth every night 02/23 ezetimibe 43447354480 [facility] DULOXETINE HCL 20 MG CPEP Take 1 capsule by mouth once a day 02/23 duloxetine 44306246670 [facility] BUSPIRONE HCL 5 MG TABS Take 1 tablet by mouth twice a day buspirone 73330236822 [facility] INSULIN LISPRO 100 UNIT/ML SOLN Inject 3 unit subcutaneously three times a day as directed 02/23 insulin lispro 63221394487 [facility] METOPROLOL SUCCINATE ER 25 MG [id number] Take 1 tablet by mouth once a day 12/06 metoprolol succinate 84448194233 [facility] LATANOPROST 0.005 % SOLN Administer 1 drop into both eyes every night 06/15 latanoprost 69892982507 [facility] ASPIRIN LOW DOSE 81 MG TBEC Take 1 tablet by mouth every night aspirin 13820765039 [facility] LEVOTHYROXINE SODIUM 125 MCG TABS Take 1 tablet by mouth once a day 02/23 levothyroxine 91512777729 [facility] WARFARIN SODIUM 5 MG TABS Take 1 tablet by mouth every night 04/04 warfarin 32298957545 [facility] HYDROXYCHLOROQUINE SULFATE 200 MG TABS Take 1 tablet by mouth every night 02/23 hydroxychloroquine 08667278723 [facility] AZITHROMYCIN 250 MG TABS Take 1 tablet by mouth once a day 02/23 azithromycin 10530125515 [facility] GABAPENTIN 100 MG CAPS Take 9 capsule by mouth every night 08/28 gabapentin 81218990234 [facility] DULOXETINE HCL 60 MG CPEP Take 1 capsule by mouth Daily. 60mg and 20mg in the morning 02/23 duloxetine 78516788318 [facility] Calcium Citrate-Vitamin D (CALCIUM D PO) Take 1 tablet by mouth once a day CALCIUM D PO [facility] EZETIMIBE 10 MG TABS Take 1 tablet by mouth once a day 09/20 ezetimibe 36827770337 [facility] Toujeo Max U-300 SoloStar (insulin glargine u-300 conc) every morning insulin glargine u-300 conc [facility] Cymbalta 60 mg capsule,delayed release every morning duloxetine 27780835069 [facility] Cymbalta 20 mg capsule,delayed release every morning duloxetine 92870937805 [facility] WARFARIN SODIUM 5 MG TABS Take 1 tablet by mouth Every Night. 04/04 warfarin 19017594876 [facility] Trelegy Ellipta 200-62.5-25 MCG/INH inhaler Inhale 2 puffs Daily. 07/17 Trelegy Ellipta 200-62.5-25 MCG/INH inhaler [facility] PITAVASTATIN CALCIUM 2 MG TABS Take 1 tablet by mouth Every Night. 02/23 pitavastatin calcium 48047875349 [facility] METOPROLOL SUCCINATE ER 25 MG [id number]-LBP Take 1 tablet by mouth Daily. 12/06 metoprolol succinate 65220134611 [facility] LOSARTAN POTASSIUM 25 MG TABS Take 1 tablet by mouth Daily. 11/17 losartan 39022330687 [facility] LEVOTHYROXINE SODIUM 125 MCG TABS Take 1 tablet by mouth Daily. 02/23 levothyroxine 73714354316 [facility] LATANOPROST 0.005 % SOLN Administer 1 drop to both eyes Every Night. 06/15 latanoprost 07952570772 [facility] RISAQUAD CAPS Take 1 capsule by mouth Daily for 14 days. 04/18 l.acid,para-b.bifid um-s.therm 63782389582 [facility] INSULIN LISPRO 100 UNIT/ML SOLN Inject 3 Units under the skin into the appropriate area as directed 3 (Three) Times a Day Before Meals. 02/23 insulin lispro 14483624083 [facility] Insulin Glargine (TOUJEO SOLOSTAR SC) Inject 23 Units under the skin into the appropriate area as directed Every Night. 02/23 TOUJEO SOLOSTAR SC [facility] HYDROXYCHLOROQUINE SULFATE 200 MG TABS Take 1 tablet by mouth Daily. 12/05 hydroxychloroquine 02785868567 [facility] HYDROXYCHLOROQUINE SULFATE 200 MG TABS Take 1 tablet by mouth Every Night. 09/07 hydroxychloroquine 88979731737 [facility] GABAPENTIN 100 MG CAPS Take 9 capsules by mouth Every Night. 08/28 gabapentin 28106217890 [facility] FOLIC ACID 1 MG TABS Take 1 tablet by mouth Daily. 02/23 folic acid 46702821819 [facility] EZETIMIBE 10 MG TABS Take 1 tablet by mouth Daily. 09/20 ezetimibe 56289392066 [facility] EZETIMIBE 10 MG TABS Take 1 tablet by mouth Every Night. 02/23 ezetimibe 90392988997 [facility] DULOXETINE HCL 60 MG CPEP Take 1 capsule by mouth Daily. 60mg and 20mg in the morning 02/23 duloxetine 03936755206 [facility] DULOXETINE HCL 20 MG CPEP Take 1 capsule by mouth Daily. 02/23 duloxetine 22639407301 [facility] CETIRIZINE HCL 10 MG TABS Take 1 tablet by mouth Daily. 02/23 cetirizine 35352192906 [facility] CEFDINIR 300 MG CAPS Take 1 capsule by mouth Every 12 (Twelve) Hours for 5 doses. Indications: Infection of the Skin and/or Soft Tissue 04/17 cefdinir 12694242370 [facility] Calcium Citrate-Vitamin D (CALCIUM D PO) Take 1 tablet by mouth Daily. 02/23 CALCIUM D PO [facility] BUSPIRONE HCL 10 MG TABS Take 1 tablet by mouth 2 (Two) Times a Day. 02/23 buspirone 03231428259 [facility] BRIMONIDINE TARTRATE 0.2 % SOLN Apply 1 drop to eye(s) as directed by provider. 06/14 brimonidine 70269733395 [facility] AZITHROMYCIN 250 MG TABS Take 1 tablet by mouth Daily. 09/07 azithromycin 74059609634 [facility] ASPIRIN LOW DOSE 81 MG TBEC Take 1 tablet by mouth Every Night. 09/07 aspirin 47568276346 [facility] Medications Administered No information available. [...] status SMOK STATUS Never smoker Toba tobacco sizer smoking status Plan of Care No information [...] Description Start Date HEALTHCARE SURROGATE POWER OF CAR CONDITIONER LIVING WILL ON FILE
--- OUTSIDE RECORDS SUMMARY | 2025-01-05 15:57 | XMS_ITS | Encounter Summary ---
Author Organization [facility] Address [address] [place] [address] Care Team Providers Care Battery Tester Field Name Role Phone Alisa Kunz Primary Care Provider [phone] Encounter Details Date Type Department Care Team (Latest Contact Info) Description 11/10/2024 Anticoagulation Visit [facility] [address] [facility] [address] [place] [address] Yancy Viveros, Cow Rider Left ventricular apical thrombus (Primary Dx) Social [...] this encounter Progress Notes * Yancy Viveros, Cow Rider - 11/10/2024 10:07 AM EDT [facility] Progress Note Patient Demographics Method of INR reporting: REMOTE LAB Estimated OOP Cost: Indication: Left Ventricular Atypical Thrombus (~2012) Referring Provider Nanette Pryor APRN Reason patient is not on a DOAC: Goal INR: 2-3 Warfarin Start Date ~02/12/24 Reason patient is not on home monitor: [id number]: Planned Duration of Therapy Indefinite Relevant medical [...] Admitted [facility] Date 05/25 05/31 06/07 4/8 4/06/22 6/08/27 Total Weekly Dose 25 mg 35 mg 32.5 mg 32.5 mg 32.5 mg 32.5 mg 30 mg 32.5 mg Admission 32.5 mg 37.5 mg 32.5 mg INR 1.9 1.6 4.1/3.6 8</8< 2.3 2.6 2.7 3.8 3.2 1.9 - HM 1.4 - Clinic 1.32 - FURRIER DESIGNER 2.8 2.0 Notes Admitted [facility] Rec'd 05/27 HM 1-BILL TODAY HM 2- no leonid; In clinic HM 3 - no bill HM 4 - no bill HM 1- BILL TODAY HM 2 - no bill Rec'd 08/11 HM 3 - no bill HM 4- no bill Rec'd 09/02 In clinic Date 09/27 10/04 10/18 10/26 11/02 11/09 Total Weekly Dose 32.5 mg 35 mg 37.5 mg 35 mg 35 mg 37.5 mg INR 1.6 2.04 2.14 2.68 2.63 2.74 Notes Rec'd 09/28 Rec'd 10/05 Rec'd 10/19 Rec'd 10/28 Rec'd 11/03 Rec'd 11/10 Patient Contact Information Verbal release: Signed 03/05/24 Preferred contact number: [phone] Alternative contact number(s): [phone] (Doron) [phone] (Ruthie) [phone] (Madyson) Patient Appropriate for WarfNoCall ? No Preferred contact name: Michelle Felipe Alternative contact name(s): Doron Felipe () Ruthie Chong (Daughter) Madyson Hernandes (Daughter) Preferred contact relation: Self Lab contact information (if applicable): [facility] [phone] Subjective Findings Drug Interactions Dietary Findings Historical: [...] admission, Bruising, Other complaints Comments: Patient reports she is going to contact Dr. Velasquez to discuss having a cardioversion since she has been therapeutic for 4 weeks consecutively. She wants to plan on rechecking INR in 2 weeks and will call the clinic if she decides otherwise. All other findings negative per patient. Dosing verified. Assessment and Plan: INR was therapeutic yesterday at 2.74 (2.0-3.0). Instructed patient to continue warfarin 5 mg dailyexcept 7.5 mg Fri until recheck. Recheck INR in 2 weeks, 11/23. Patient prefers testing Tuesdays. Verbal and written information provided. Michelle Felipe expresses understanding by teach back and has no further questions at this time. Yancy Viveros CPhT, RPhT 10:12 EDT 11/10/2024 IReema, Alfa, have reviewed the note in full and agree with the assessment and plan. 11/10/24 10:33 EDT documented in this encounter Plan of Treatment Upcoming Encounters Date Type Department Care Team (Late st Contact Info) Description 01/19/2025 1:45 PM EST Office Visit [facility] CARDIOLOGY [address] [facility] [address] [place] [address] Naveen Velasquez MD [address] [place] [address] 05/04/2026 2:45 PM EST Office Visit [facility] CARDIOLOGY [address] [place] [address] [place] [address] Sujit Reyes MD [address] [facility] [address] [place] [address] documented as of this encounter Procedures Procedure Name Priority Date/Time Associated Diagnosis Comments SCANNED - LABS 11/10/2024 PROTIME-INR Routine 11/09/2024 documented in this encounter Results * LABS SCANNED (11/10/2024) [facility] Onbase LAB BLOOD ORDERABLES Final Re sult * Protime-INR (11/09/2024) INR 2.74 Blood 11/09/2024 Historical Provider LAB BLOOD ORDERABLES Lee Ann l Result documented in this encounter Visit Diagnoses Diagnosis Left ventricular apical thrombus- Primary documented in this encounter Care Teams Battery Tester Field Relationship Specialty Start Date End Date Alisa Kunz DO [address] [place] [address] PCP - General Internal Medicine 04/26/21 documented as of this encounter
--- OUTSIDE RECORDS SUMMARY | 2025-01-05 15:57 | XMS_ITS | Encounter Summary ---
Author Organization Healthcare Address [address] [place] [address] Care Team Providers Care Director College Name Role Phone Pcp, No Primary Care Provider Unavailabl e Alisa Kunz DO Unavailable [phone] Kodi Bustos DO Unavailable [phone] Sujit Arriola MD Unavailable [phone] Sujit Reyes MD Unavailable [phone] Patricia Yañez LPN Unavailable Unavailab eZe Lr DO Unavailable [phone] Encounter Details Date Type Department Care Team (Late st Contact Info) Description 09/09/2024 Results Follow-Up [facility] [address], [address] [place] [address] Zee Lazar DO [address] [place] [address] Social History Tobacco Use Types [...] any clubs o r organizations such as mu-ism groups, unions, fraternal or athletic groups, or [...] Recorded Patient Health Questionnaire-2 Score 0 10/27/2024 [facility] - Occupational [...] drink first t naselmo in the morning (EYE-DYE MACHINE TENDER) to steady your nerves or to get rid of a hangover? 0 08/14/2024 CAGE Questionnaire Score 0 025 Utilities Answer Date Recorded In the past 12 months has th e electric, gas, oil, or water [employer] threatened to shut off services in your [...] 0 10/27/2024 2:09 PM EDT Lia Espinosa * Calculated C-SSRS Risk Score [...] Description 01/06/2025 2:00 PM EDT Office Visit [facility] [address] [place] [address] Lavern Shoemaker MD [address] [place], [place] [id number] 01/12/2025 1:10 PM EST Office Visit [facility] [address] [place] [address] Noris Yee MD [address] [place] [address] 01/12/2025 2:00 PM EST Office Visit [facility] [address] [place] [address] Ezra Fine MD [address] [place] [address] 01/27/2025 10:00 AM EST Office Visit [facility] [address] [place] [address] Sujit Cole APRN [address] [place] [address] 02/02/2025 8:40 AM EST Office Visit [facility] [address] [place] [address] Alisa Kunz DO [address] [place] [address] 02/09/2025 12:20 PM EST Office Visit [facility] [address] [place] [address] Anne-Marie Kolb, GRASSROOTS ORGANIZER [address] [place] [address] 04/18/2025 2:40 PM EST Office Visit [facility] [address] [place] [address] Anne-Marie Kolb, GRASSROOTS ORGANIZER [address] [facility] [address] [place] [address] documented as of this encounter [...] as of this encounter Care Teams Director College Relationship Specialty Start Date End Date Pcp, No [address] [place] [address] PCP - General Family Medicine 11/21/23 12/06/24 Alisa Kunz DO [address] [place] [address] Internal Medicine 11/21/23 Kodi Bustos DO [address] [address] Surgeon Cardiothoracic Surgery 11/06/22 Sujit Arriola MD [address] [place] [address] Consulting Physician Pulmonary Disease 11/06/22 Sujit Reyes MD [address] [facility] [address] [place] [address] Referring Physician 12/04/22 Patricia Yañez LPN [facility] TCM Nurse 08/25/24 10/17/24 Zee Lazar DO [address] [place], [place] [id number] Resident 09/08/24 documented as of this encounter
--- OUTSIDE RECORDS SUMMARY | 2025-01-05 15:57 | XMS_ITS | Encounter Summary ---
Author Organization [facility] ystem Address [address] [place] [address] Care Team Providers Care Civil Estimator Name Role Phone ZeAlisa willett Lizbeth Primary Care Provider +1- [phone] Reason for Visit * Reason Comments Med Refill Encounter Details Date Type Department Care Team (Late st Contact Info) Description 12/05/2024 Refill [facility] [address] [facility] [address] [place] [address] Nanette Pryor, YAMILET [address] [facility] [address] [place] [address] Med Refill Social History Tobacco Use Types [...] Telephone Encounter - Marj Delgado PharmD - 12/06/2024 8:39 AM EDT WARFARIN 5 MG RX REFILLED PER PROTOCOL Marj Delgado PharmD 12/06/2024 08:48 EDT documented in this encounter Plan of Treatment Upcoming Encounters Date Type Department Care Team (Late st Contact Info) Description 01/19/2025 1:45 PM EST Office Visit [facility] [address] [place] [address] Naveen Velasquez MD [address] [facility] [address] [address] [facility] [address] [place] [address] 05/04/2026 2:45 PM EST Office Visit [facility] C[facility] [address] [place] [address] [place] [address] Sujit Reyes MD [address] [place] [address] documented as of this encounter Visit Diagnoses Not on filedocumented in this encounter Care Teams Civil Estimator Relationship Specialty Start Date End Date Alisa Kunz DO [address] [place] [address] PCP - General Internal Medicine 04/26/21 documented as of this encounter
--- OUTSIDE RECORDS SUMMARY | 2025-01-05 15:57 | XMS_ITS | Encounter Summary ---
[facility] Organization [facility] Address [address] [place] [address] Care Team Providers Care Founder And Chief Executive Officer Name Role Phone Alisa Kunz Primary Care Provider +1- [phone] Encounter Details Date Type Department Care Team (Latest Contact Info) Description 12/07/2024 Anticoagulation Visit [facility] [address] [facility] [address] [place] [address] Yancy Viveros, Launch Steward Left ventricular apical thrombus (Primary Dx) Social [...] this encounter Progress Notes * Yancy Viveros, Launch Steward - 12/07/2024 4:04 PM EDT [facility] Progress Note Patient Demographics Method of INR reporting: REMOTE LAB Estimated OOP Cost: Indication: Left Ventricular Atypical Thrombus (~2012) Referring Provider Nanette Pryor APRN Reason patient is not on a DOAC: Goal INR: 2-3 Warfarin Start Date ~02/12/24 Reason patient is not on home monitor: [id number]: Planned Duration of Therapy Indefinite Relevant medical [...] 05/31 06/07 4/8 4/9 06/22 07/27 08/03 6/3 6/20 6/25 7/16 Total Weekly Dose 25 mg 35 mg 32.5 mg 32.5 mg 32.5 mg 32.5 mg 30 mg 32.5 mg Admission 32.5 mg 37.5 mg 32.5 mg INR 1.9 1.6 4.1/3.6 8</8< 2.3 2.6 2.7 3.8 3.2 1.9 - HM 1.4 - Clinic 1.32 - 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 2.8 2.0 Notes Admitted [facility] Rec'd 05/27 HM 1-BILL TODAY HM 2- no leonid; In clinic HM 3 - no bill HM 4 - no bill HM 1- BILL TODAY HM 2 - no bill Rec'd 08/11 HM 3 - no bill HM 4- no bill Rec'd 09/02 In clinic Date 09/27 10/04 10/18 10/26 11/02 11/09 12/07 Total Weekly Dose 32.5 mg 35 mg 37.5 mg 35 mg 35 mg 37.5 mg 27 mg INR 1.6 2.04 2.14 2.68 2.63 2.74 1.28 Notes Rec'd 09/28 Rec'd 10/05 Rec'd 10/19 Rec'd 10/28 Rec'd 11/03 Rec'd 11/10 Patient Contact Information Verbal release: Signed 03/05/24 Preferred contact number: [phone] Alternative contact number(s): [phone] (Doron) [phone] (Ruthie) [phone] (Madyson) Patient Appropriate for WarfNoCall ? No Preferred contact name: Michelle Felipe Alternative contact name(s): Doron Felipe () Ruthie Chong (Daughter) Madyson Hernandes (Daughter) Preferred contact relation: Self Lab contact information (if applicable): [facility] [phone] Subjective Findings Drug Interactions Dietary Findings Historical: duloxetine, levothyroxine, ezetimibe, furosemide Historical GLV intake (date updated): broccoli/cabbage every now and then, not much other GLV New (including OTC): None GLV changes this encounter: None Alcohol and Tobacco Historical: 2 beers or 1 cocktail per evening, no tobacco New: None Patient Findings Positives: Upcoming dental procedure Negatives: Signs/symptoms of thrombosis, Signs/symptoms of bleeding, Laboratory test error suspected, Change in health, Change in alcohol use, Change in activity, Upcoming invasive procedure, Emergency department visit, Missed doses, Extra doses, Change in medications, Change in diet/appetite, Hospital admission, Bruising, Other complaints Comments: Patient has upcoming dental extraction on 12/09. Unable to verify provider. Patient has been taking dosing completely different than she was previously instructed. She is currently residing at [facility] in [place], [place] following a stroke. All other findings negative per Enedina. Dosing verified. Assessment and Plan: INR is baseline at 1.28 (2.0-3.0). Per Iraj ZayasD instructed EVITA Mcconnell to have patient take warfarin 5 mg daily except 7.5 mg Wed until recheck. Recheck INR in 1 week, 12/14. Verbal and written information provided. Michelle Felipe expresses understanding by teach back and has no further questions at this time. Yancy Viveros CPhT, [facility] 16:24 EDT 12/07/2024 IReema, Alfa, have reviewed the note in full and agree with the assessment and plan. 12/08/24 11:30 EDT documented in this encounter Plan of Treatment Upcoming Encounters Date Type Department Care Team (Late st Contact Info) Description 01/19/2025 1:45 PM EST Office Visit [facility] [address] [facility] [address] [place] [address] Naveen Velasquez MD [address] [place] [address] 05/04/2026 2:45 PM EST Office Visit [facility] C[facility] [address] [place] [address] Sujit Reyes MD [address] [place] [address] documented as of this encounter Procedures Procedure Name Priority Date/Time Associated Diagnosis Comments PROTIME-INR Routine 12/07/2024 documented in this encounter Results * Protime-INR (12/07/2024) INR 1.28 Blood 12/07/2024 us Historical Provider LAB BLOOD ORDERABLES Lee Ann l Result documented in this encounter Visit Diagnoses Diagnosis Left ventricular apical thrombus- Primary documented in this encounter Care Teams Founder And Chief Executive Officer Relationship Specialty Start Date End Date Alisa Kunz DO [address] [place] [address] PCP - General Internal Medicine 04/26/21 documented as of this encounter
--- OUTSIDE RECORDS SUMMARY | 2025-01-05 15:57 | XMS_ITS | Encounter Summary ---
[facility] Address [address] [place] [address] Care Team Providers Care Government Affairs Fellow Name Role Phone Alisa Kunz Primary Care Provider +1- [phone] Encounter Details Date Type Department Care Team (Late st Contact Info) Description 12/07/2024 Telephone [facility]IC [address] [facility] [address] [place] [address] Yancy Viveros, Cool Roofing Installer Social History Tobacco Use Types Packs/Day Years [...] encounter Miscellaneous Notes * Telephone Encounter - Yancy Viveros Cool Roofing Installer - 12/07/2024 10:48 AM EDT Patient called and reports she has an upcoming dental extraction on . She reports the provider has not instructed her to hold warfarin. Patient has not had INR checked in 4 weeks. She reportsshe will be having it checked at [facility] in [place], as this is where she is currently residing. I was unable to understand the name of the provider, as patient's speech was unclear. She says she recently had a stroke. Will discuss with daughter to determine which provider is doing the procedure. Patient may need to r/s procedure if warfarin hold is required, as she would only be able to hold today's and tomorrow's doses. Patient will have INR checked this afternoon and call us with the result. Yancy Viveros CPhT, RPhT 10:54 EDT 12/07/2024 documented in this encounter Plan of Treatment Upcoming Encounters Date Type Department Care Team (Late st Contact Info) Description 01/19/2025 1:45 PM EST Office Visit [facility] [address] [place] [address] Naveen Velasquez MD [address] [place] [address] 05/04/2026 2:45 PM EST Office Visit [facility] [address] [place] [address] [place] [address] Sujit Reyes MD [address] [place] [address] documented as of this encounter Visit Diagnoses Not on filedocumented in this encounter Care Teams Government Affairs Fellow Relationship Specialty Start Date End Date Alisa Kunz DO [address] [place], [place] [id number] PCP - General Internal Medicine 04/26/21 documented as of this encounter
--- OUTSIDE RECORDS SUMMARY | 2025-01-05 15:57 | XMS_ITS | Encounter Summary ---
[facility] [address] [place] [address] Care Team Providers Care Plastic Mixer Name Role Phone Alisa Kunz Primary Care Provider +1- [phone] Encounter Details Date Type Department Care Team (Latest Contact Info) Description 12/02/2024 Travel Social History Tobacco Use Types Packs/Day [...] Description 01/19/2025 1:45 PM EST Office Visit [facility] CARDIOLOGY [address] [facility] [address] [place] [address] Naveen Velasquez MD [address] [facility] [address] [place], [place] [address] 05/04/2026 2:45 PM EST Office Visit [facility] C[facility] [address] [place] [address] [address] [place] [address] Sujit Reyes MD [address] [facility] [address] [place], [place] [address] documented as of this encounter Visit Diagnoses Not on filedocumented in this encounter Care Teams Plastic Mixer Relationship Specialty Start Date End Date Alisa Kunz DO [address] [place], [place] [id number] PCP - General Internal Medicine 04/26/21 documented as of this encounter
--- OUTSIDE RECORDS SUMMARY | 2025-01-05 15:57 | XMS_ITS | Encounter Summary ---
Author Organization [facility] ystem Address [address] [place] [address] Care Team Providers Care Nursing Clerk Name Role Phone Alisa Kunz Primary Care Provider +1- [phone] Encounter Details Date Type Department Care Team (Late st Contact Info) Description 12/21/2024 Telephone [facility] [address] [facility] [address] [place] [address] Sujit Reyes MD [address] [facility] [address] [place] [address] Social History Tobacco Use Types [...] encounter Miscellaneous Notes * Telephone Encounter - Nanette Pryor APRN - 12/24/2024 4:25 PM EDT Pt treated at [facility] * Telephone Encounter - Rand Hickey RN - 12/21/2024 2:58 PM EDT Overhead page for active chest pain. Spoke with Shabana with home health. Patient recently discharged(Friday) from [facility] hospital with a diagnosis of stroke. The patient is c/o chest heaviness and achiness that has started today. It's across her entire anterior chest. This is exacerbated with exertion. She is short of breath. She is on 3L/NC and her oxygen sats are <80% unless she takes a deep breath . She does not have diaphoresis, nausea or vomiting. The nurse states she is very pale. Her left leg is very swollen and has been for about a week. The nurse states it looks red and like cellulitis . She also, states her lung sounds are clear except for the left side. She states it is decreased, without rhonchi or wheeze. HR 60 and regular. B/P 128/62. O2 sat currently 82% on 3L/NC. She is encouraged to have patient go to the nearest ER per ambulance. She verbalizes understanding. documented in this encounter Plan of Treatment Upcoming Encounters Date Type Department Care Team (Late st Contact Info) Description 01/19/2025 1:45 PM EST Office Visit [facility] [address] [facility] [address] [place] [address] Naveen Velasquez MD [address] [facility] [address] [place], [place] [id number] 05/04/2026 2:45 PM EST Office Visit [facility] [address] [facility] [place] [address] Sujit Reyes MD [address] [place], [place] [address] documented as of this encounter Visit Diagnoses Not on filedocumented in this encounter Care Teams Nursing Clerk Relationship Specialty Start Date End Date Alisa Kunz DO [address] [place] [address] PCP - General Internal Medicine 04/26/21 documented as of this encounter
--- OUTSIDE RECORDS SUMMARY | 2025-01-05 15:57 | XMS_ITS | Encounter Summary ---
Author Organization [facility] ystem Address [address] [place] [address] Care Team Providers Care Diamond Assorter Name Role Phone Alisa Kunz DO Primary Care Provider +1- [phone] Reason for Referral * Cardiac (Routine) - Closed Specialty Diagnoses / Procedures Referred By Contac t Referred To Contact Diagnoses Paroxysmal atrial fibrillation Procedures Cardioversion External in Cardiology Department Ekaterina Rand PA [address] [facility] [address] [place] [address] Phone: tel: fax: Referral ID Status Reason Start Date Expiration Date Visits Re quested Visits Authorized [id number] Closed 11/19/2024 02/11/2026 1 1 Encounter Details Date Type Department Care Team (Late st Contact Info) Description 11/12/2024 Telephone [facility] C[facility]IOLOG[facility] [address] [facility] [address] [place] [address] Ekaterina Rand PA [address] [facility] [address] [place] [address] Social History Tobacco Use Types [...] encounter Miscellaneous Notes * Telephone Encounter - Jillian Johnson RegSched Rep - 11/15/2024 1:35 PM EDT CALLED PT AND SCHEDULED ECV FOR 11/19. LETTER IN [employer] * Telephone Encounter - Halima Cortes RN - 11/12/2024 3:20 PM EDT Images from the original note were not included. Order placed for ECV. Per the [facility] she has been therapeuatic for 4 weeks: Marj Delgado, PharmD to [place] [facility] 11/12/24 1:29 PM Note Yes, 10/18 was 2.14, 10/26 was 2.68, 11/02 was 2.63, 11/09 was 2.74. Patient is also going to outside lab now (not home monitor, which we suspected was having issues previously).. * Telephone Encounter - Halima Cortes RN - 11/12/2024 3:19 PM EDT ----- Message from Ekaterina Rand sent at 11/12/2024 3:07 PM EDT ----- Regarding: RE: New order Yes go ahead and schedule for ECV ----- Message ----- From: Jillian Johnson RegSched Rep Sent: 11/10/2024 10:23 AM EDT To: LUIS Valladares; Halima Cortes, EVITA Subject: New order Pt called and states she wants to reschedule her ECV since her INR has been within range the last four weeks. Please confirm if this is appropriate and place new order. Thank you! documented in this encounter Plan of Treatment Upcoming Encounters Date Type Department Care Team (Late st Contact Info) Description 01/19/2025 1:45 PM EST Office Visit [facility] [address] [facility] [address] [place] [address] Naveen Velasquez MD [address] [place] [address] 05/04/2026 2:45 PM EST Office Visit [facility] CARDIOLOGY [address] [place] [address] Sujit Reyes MD [address] [place] [address] [place] [address] documented as of this encounter Visit Diagnoses Diagnosis Paroxysmal atrial fibrillation- Primary Atrial fibrillation documented in this encounter Care Teams Diamond Assorter Relationship Specialty Start Date End Date Alisa Kunz DO [address] [place] [address] PCP - General Internal Medicine 04/26/21 documented as of this encounter
--- OUTSIDE RECORDS SUMMARY | 2025-01-05 15:57 | XMS_ITS | Encounter Summary ---
[facility] Address [address] [place] [address] Care Team Providers Care Wax Ball Knock Out Worker Name Role Phone Alisa Kunz Primary Care Provider [phone] Encounter Details Date Type Department Care Team (Late st Contact Info) Description 11/16/2024 Prep for Surgery [facility] ORDERS ONLY [address] [place] [address] Ekaterina Rand, PA [address] [facility] [address] [place] [address] Persistent atrial fibrillation (Primary Dx) Social History Tobacco Use Types [...] Description 01/19/2025 1:45 PM EST Office Visit [facility] [address] [facility] [address] [place] [address] Naveen Velasquez MD [address] [facility] [address] [place] [address] 05/04/2026 2:45 PM EST Office Visit [facility] [address] [facility] [place] [address] [place] [address] Sujit Reyes MD [address] [facility] [address] [place] [address] Scheduled Orders Name Type Priority Associated Diagnoses Orde r Schedule Protime-INR Lab Routine Persistent atrial fibrillation Expected: 11/21/2024 (Approximate), Expires: 11/16/2025 documented as of this encounter Results * (ABNORMAL) Basic Metabolic Panel (11/19/2024 9:06 AM EDT) Glucose 303(H) 65 - 99 mg/dL 11/19/2024 9:59 AM EDT [facility] BUN 24.9(H) 8.0 - 23.0 mg/dL 11/19/2024 9:59 AM [facility] Creatinine 1.02(H) 0.57 - 1.00 mg/dL 11/19/2024 9:59 AM [facility] Sodium 132(L) 136 - 145 mmol/L 11/19/2024 9:59 AM EDT [facility] Potassium 4.2 3.5 - 5.2 mmol/L 11/19/2024 9:59 AM T [facility] Chloride 91(L) 98 - 107 mmol/L 11/19/2024 9:59 AM [facility] CO2 27.0 22.0 - 29.0 mmol/L 11/19/2024 9:59 AM [facility] Calcium 8.9 8.6 - 10.5 mg/dL 11/19/2024 9:59 AM [facility] BUN/Creatinine Ratio 24.4 7.0 - 25.0 11/19/2024 9:59 AM [facility] Anion Gap 14.0 5.0 - 15.0 mmol/L 11/19/2024 9:59 AM [facility] eGFR 58.2(L) >60.0 mL/min/1.7 3 11/19/2024 9:59 AM [facility] Blood Line / Unknown 11/19/2024 9: 06 AM EDT 11/19/2024 9:21 AM EDT [facility] - 11/19/2024 9:59 [...] SM[facility] LAB BLOOD ORDERABLES Final Res ult [facility]
[address] [place] [address], [place] [phone] * (ABNORMAL) CBC (No Diff) (11/19/2024 9:06 AM EDT) WBC 8.05 3.40 - 10.80 10*3/mm3 11/19/2024 9:26 AM EDT [facility] RBC 3.35(L) 3.77 - 5.28 10*6/mm3 11/19/2024 9:26 AM EDT [facility] Hemoglobin 10.3(L) 12.0 - 15.9 g/dL 11/19/2024 9:26 AM EDT [facility] Hematocrit 32.7(L) 34.0 - 46.6 % 11/19/2024 9:26 AM EDT [facility] MCV 97.6(H) 79.0 - 97.0 fL 11/19/2024 9:26 AM EDT [facility] MCH 30.7 26.6 - 33.0 pg 11/19/2024 9:26 AM EDT [facility] MCHC 31.5 31.5 - 35.7 g/dL 11/19/2024 9:26 AM EDT [facility] RDW 15.1 12.3 - 15.4 % 11/19/2024 9:26 AM EDT [facility] RDW-SD 54.2(H) 37.0 - 54.0 fl 11/19/2024 9:26 AM EDT [facility] MPV 9.3 6.0 - 12.0 fL 11/19/2024 9:26 AM EDT [facility] Platelets 340 140 - 450 10*3/mm3 11/19/2024 9:26 AM EDT [facility] Blood Line / Unknown 11/19/2024 9: 06 AM EDT 11/19/2024 9:22 AM EDT us Ekaterina SMITH LAB BLOOD ORDERABLES Final Res ult [facility]
[address] [place] [address], documented in this encounter Visit Diagnoses Diagnosis Persistent atrial fibrillation- Primary Atrial fibrillation documented in this encounter Care Teams Wax Ball Knock Out Worker Relationship Specialty Start Date End Date Alisa Kunz DO [address] [place] [address] PCP - General Internal Medicine 04/26/21 documented as of this encounter
--- OUTSIDE RECORDS SUMMARY | 2025-01-05 15:57 | XMS_ITS | Encounter Summary ---
[facility] Address [address] [place] [address] Care Team Providers Care Neurological Surgeon Name Role Phone Alisa Kunz Primary Care Provider [phone] Encounter Details Date Type Department Care Team (Latest Contact Info) Description 11/19/2024 Travel Social History Tobacco Use Types Packs/Day [...] AM EDT Shown, Jodie Meza RN * [place] Suicide Severity Rating Scale (Screener/Recent Self-Report) Question Answer Date of Assessment Author 6. Suicidal Behavior (Lifetime) No 9:05 AM EDT Shown, Jodie Meza RN documented as of this encounter Plan of Treatment Upcoming Encounters Date Type Department Care Team (Late st Contact Info) Description 01/19/2025 1:45 PM EST Office Visit [facility] [address] [facility] [address] [place] [address] Naveen Velasquez MD [address] [facility] [address] [place], [place] [address] 05/04/2026 2:45 PM EST Office Visit [facility] [address] [place] [address] [place] [address] Sujit Reyes MD [address] [facility] [address] [place] [address] documented as of this encounter Visit Diagnoses Not on filedocumented in this encounter Care Teams Neurological Surgeon Relationship Specialty Start Date End Date Alisa Kunz DO [address] [place] [address] PCP - General Internal Medicine 04/26/21 documented as of this encounter
--- OUTSIDE RECORDS SUMMARY | 2025-01-05 16:02 | XMS_ITS | Encounter Summary ---
Author Organization [facility] Address [address] [place] [address] Care Team Providers Care Cytology Teacher Name Role Phone Alisa Kunz DO Primary Care Provider [phone] Pcp, No Primary Care Provider Unavailabl e Alisa Kunz DO Unavailable [phone] Laura Albright ORDER BOOKER Unavailable Unavailable Balwinder Vale Unavailable Unavailable Kodi Bustos DO Unavailable [phone] Sujit Arriola MD Unavailable [phone] HatLaura navas ORDER BOOKER Unavailable Unavailable Sujit Reyes MD Unavailable [phone] Zully Caldwell ORDER BOOKER Unavailable Unavailable HatLaura navas ORDER BOOKER Unavailable Unavailable Laura Albright LPN Unavailable Unavailable Tanya Powell Unavailable [phone] Sarah Reyes ORDER BOOKER Unavailable Unavailable Ekaterina Gómez Unavailable Unavailable Zully Caldwell ORDER BOOKER Unavailable Unavailable Ekaterina Gómez Unavailable Unavailable Patricia Yañez ORDER BOOKER Unavailable Unavailab Zee Lr DO Unavailable [phone] Alisa Kunz DO Primary Care Provider [phone] Milli KELLEY RN, Fili Noonan Unavailable [phone] Reason for Visit * Reason Comments Med Refill Encounter Details Date Type Department Care Team (Late st Contact Info) Description 12/10/2021 Refill [facility] Internal Medicine [address] [place] [address] Alisa Kunz DO [address] [place] [address] Social History Tobacco Use Types Packs/Day Years [...] [facility] [address] [place] [address] Lavern Shoemaker MD [address] [place] [address] 01/12/2025 1:10 PM EST Office [facility] Medicine Specialties [address] [place] [address] Noris Yee MD [address] [place] [address] 01/12/2025 2:00 PM EST Office Visit [facility] [address], [address] [place] [address] Ezra Fine MD [address] [place] [address] 01/27/2025 10:00 AM EST Office [facility] [address] [place] [address] Sujit Cole, ORNAMENTAL RAIL INSTALLER [address] [place] [address] 02/02/2025 8:40 AM EST Office Visit [facility] Internal Medicine [address] [place] [address] Alisa Kunz, DO [address] [place] [address] 02/09/2025 12:20 PM EST Office Visit [facility] Endocrinology [address] [place] [address] Anne-Marie Kolb, ORNAMENTAL RAIL INSTALLER [address] [facility] [address] [place] [address] 04/18/2025 2:40 PM EST Office Visit [facility] Endocrinology [address] [place] [address] Anne-Marie Kolb, ORNAMENTAL RAIL INSTALLER [address] [facility] [address] [place] [address] documented as of this encounter Visit [...] documented as of this encounter Care Teams Cytology Teacher Relationship Specialty Start Date End Date Alisa Kunz DO [address] [place] [address] PCP - General Internal Medicine 03/13/21 11/20/23 [place] [address] PCP - General Family Medicine 11/21/23 12/06/24 Alisa Kunz DO [address] [place] [address] PCP - General Internal Medicine 12/07/24 Alisa Kunz DO [address] [place] [address] Internal Medicine 11/21/23 Laura Albright LPN VALUE-BASED TR[employer] [place] [address] TCM Nurse 08/30/22 09/27/22 Balwinder Vale [address] [address] Community Health Worker Apparel Pattern Maker 08/30/22 09/06/22 Kodi Bustos DO [address] [address] Surgeon Cardiothoracic Surgery 11/06/22 Sujit Arriola MD [address] [place] [address] Consulting Physician Pulmonary Disease 11/06/22 Laura Albright LPN [employer]ED [employer] [place] [address] TCM Nurse 12/02/22 01/01/23 Sujit Reyes MD [address] [place] [address] Referring Physician 12/04/22 Zully Caldwell LPN VAL[employer]ED [employer] [place] [address] TCM Nurse 02/03/23 03/05/23 Laura Albright LPN VAL[employer]ED [employer] [place] [address] TCM Nurse 08/05/23 09/04/23 Laura Albright LPN [employer]ED [place] [place] [address] TCM Nurse 02/17/24 03/18/24 Tanya Powell [address] [place] [address] [address] [place] [address] Registered Nurse 04/02/24 07/01/24 Sarah Reyes LPN TCM Nurse 05/27/24 06/26/24 Ekaterina Gómez Surg Physician Asst Apparel Pattern Maker 07/14/24 07/14/24 Zully Caldwell LPN [employer] [place] [address] TCM Nurse 07/16/24 08/15/24 Ekaterina Gómez Surg Physician Asst Apparel Pattern Maker 08/16/24 08/16/24 Patricia Yañez LPN [facility] TCM Nurse 08/25/24 10/17/24 Zee Lazar DO [address] [place] [address] Resident 09/08/24 Fili Morley III, RN [address] [facility], [address] [place] [address] Ceiling Cleaner 12/22/24 01/05/25 documented as of this encounter
--- OUTSIDE RECORDS SUMMARY | 2025-01-05 16:02 | XMS_ITS | Data Portability ---
Author Organization [facility] - Edgar montgomery MD, Main Office Address [address], [address] [place] [address] Care Team Providers Care Hoe Worker Name Role Phone BRUCE BOYER Primary Care Provider [phone] Assessment No assessment recorded. Plan of Treatment [...] By Organization Details Last Modified Time 08/21/2021 [id number] Finding has been discussed with the patient in detail. Outpatient physical therapy referral for strengthening of her lower extremities. I anticipate that she should be able to walk in the next few months. Return as needed. Not available 08/21/2021 08:50:00 01/10/2022 [id number] Finding has been discussed with the patient [...] Last Updated DateTime 162.56 cm 25.7 kg/m2 61026.8 6 g 79 /min 17 /min 127/76 mm[Hg] Edgar Irwin MD [address] , [facility] [address], [address] [facility] MD 08:45:55 Date Recorded Body mass index (BMI) Body weight Heart rate Respiratory rate Systolic And Diastolic Provider Name and Address Organization Details Last Updated DateTime 01/10/2022 25.9 kg/m2 55752.4 5 g 80 /min 16 /min 132/77 mm[Hg] Edgar Irwin MD [address], [facility] [address], [place], [address], [facility] Irwin MD 14:54:47 Date Recorded Body [...] not available 08/21/2021 Are you able to walk independently without assistance or assistive devices? YESASSIST Information not available 01/10/2022 Mental Status None recorded. Family History Relationship Description Onset Age of this Age Resolved Age Notes LastModified by Organization Details LastModified Time Father Alcoholism Not availabl e 08/21/2021 08:13:19 Mother Heart disease Not available 2021 08:13:27 Mother Hypertensive disorder Not available 2021 08:13:34 Medical History Condition Response Diabetes Y Anxiety Disorder Y Arthritis Y Hyperlipidemia Y Heart Disease Y Stroke Y Hypertension Y Depression Y Gynecological HistoryNo gynecological history recorded. 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 [id number] Edgar Irwin MD Main Office [address], [facility] [address] [place] [address] 01/10/2022 10:56:27 01/10/2022 11:33:09 Impairment of balance [id number] R26.89 The patient is a 71-year-ol d [...] Byrne Member ID Guarantor Name 01/08/2022 1 [facility] (MEDICARE REPLACEMENT/A DVANTAGE - PPO) [id number] Michelle Felipe [id number] Michelle Felipe Notes Date Note Type Note Provider Name a al Address Organization Details Recorded Time 08/21/2021 text/html ROS as noted in the HPI Mrs. Felipe is a 71-year-old retired white [...] has a history of consumption of alcohol. Edgar Irwin MD [address], [facility], [place], [address], [facility] Edgar Irwin MD 08/21/2021 08:50:30 01/10/2022 text/html ROS as noted in the HPI Mrs. Felipe is a 71-year-old white female. [...] She also takes Eliquis for atrial fibrillation. MD [address], [facility] [address], [place], [address], [facility] Esthela Irwin MD 01/10/2022 14:58:00 OBGyn Episode No OBEpisode recorded.
[2025-01-05 17:26] LABS: INR 4.37 (0.9-1.1); Prothrombin Time 43.5 seconds (10.1-12.5)
== END 2025-01-05 23:59 | disposition home or self-care (01) ==
LOC: LAB 15:41
PROVIDERS: PCP Internal Medicine; Visit Provider Nurse Practitioner Gerontology
DX: I24.0 Acute coronary thrombosis not resulting in myocardial infarction (principal); I51.3 Intracardiac thrombosis, not elsewhere classified
CPT/HCPCS: 36415; 85610

== ENCOUNTER 2025-01-26 14:17 | Outpatient (CLI) | payer MEDICARE, SELFPAY ==
[2025-01-26 14:49] LABS: INR 2.10 (0.9-1.1); Prothrombin Time 22.1 seconds (10.1-12.5)
--- OUTSIDE RECORDS SUMMARY | 2025-01-26 15:35 | XMS_ITS | Data Portability ---
Author Organization [facility] [place] [facility] Address [address] [place] [address] Care Team Providers Care Instructional Systems Specialist Name Role Phone GILLES COOPER Field Technical Specialist BRUCE SIEGEL Primary Care Provider VETO MONTESINOS Hotel Clerk Assessment No assessment recorded. Plan of Treatment Reminders Order Date Submit Date Provider Last Modified By Organization Details Last Modified Time Details Appointments LEVEL 2 2025 01:15P Sanjuana COOPER MD Not available Not available Not available Lab jas wet prep 2024 025 [facility], [address] [place] [address], [phone], 07/05/2024 15:58:20 surgical pathology study 2024 025 [facility], [address] [place] [address], [phone], 07/06/2024 10:48:12 Referral None recorded. Procedures None recorded. Surgeries None recorded. Imaging None recorded. Medication Orders clobetaso l 0.05 % topical ointment 2024 025 [facility], [address], [phone], 07/05/2024 15:58:20 Patient TargetsNo targets recorded. Patient InstructionsNo instructions recorded. Reason for Referral None Reported. Results Created Date Observation Date Name Description Value Unit Range Abnormal Flag Note LastModifiedBy Organization Detail LastModifiedTime 07/06/19 25 07/05/2024 SURGI AGAPITO surgical SEE BELOW [place] topat holog y Netta t NAME: GUS [...] Out Date: 07/06 10:47 1 Not Available [facility] [address] [place], [address], 07/06/2024 10:48:11 07/06/19 25 07/05/2024 jas wet prep JAS Prep negati ve Not Available [facility] [address] [place], [address], 07/05/2024 12:13:43 03/23/19 25 03/23/2024 optic al [...] Organization Details Recorded Time Secondary diabetes mellitus 4254307 Active 2015 From Automated Load;Provi oscar: Yong Zhu;Statu s: Active Not Available [facility] 6 03:07:23 Excess skin of eyelid 763127324 Active 2015 From Automated Load;Provi oscar: Yong Zhu;Statu s: Active Not Available [facility] 6 03:07:23 Tear film insuffici ency 72717774 Active 2015 From Automated Load;Provi oscar: Yong Zhu;Statu s: Active Not Available [facility] 6 03:07:23 Retinopat hy due to type 1 diabetes mellitus 189496848 Active 2015 From Automated Load;Provi oscar: Yong Zhu;Statu s: Active Not Available [facility] 6 03:07:23 Heart failure 40716921 Active 2024 Kayla Suresh [facility] 5 12:01:23 Systemic lupus erythemat osus 38629017 Active 2024 Kinney Suresh [facility] 5 12:01:50 Type 1 diabetes mellitus 59229286 Active 2024 Kinney Suresh [facility] 5 12:02:02 Problem Notes None recorded. Procedures Surgical History Date Name Laterality Status Provider Name and Address Organization Details Recorded Time DAK - Cryo AK completed Mike Arnold [facility] 09/30/2024 13:02:38 OCT/Retina completed GILLES COOPER MD [address] [place] [address], [phone], [facility] 09/23/2024 15:15:57 025 thoracentesis completed Corky Powell [facility] 09/30/2024 12:49:02 025 DAK - Cryo AK completed Kayla Prince [facility] 07/05/2024 12:20:10 025 DAK - Biopsy, Tangential completed Kayla Prince [facility] 07/05/2024 12:09:54 025 OCT/Nerve completed GILLES COOPER MD [address] [place] [address], [phone], [facility] 03/23/2024 17:00:49 024 DAK - Cryo AK completed Kayla Prince [facility] 10/30/2023 14:05:21 024 DAK - Biopsy, Tangential completed Kaylaelyssa Prince [facility] 10/30/2023 14:09:15 024 Visual Field Extended completed GILLES COOPER MD [address] [place] [address], [phone], [facility] 06/16/2023 14:49:13 024 OCT/Retina completed GILLES COOPER MD [address] [place] [address], [phone], [facility] 04/16/2023 14:09:44 023 OCT/Nerve completed GILLES COOPER MD [address] [place] [address], [phone], [facility] 01/06/2023 09:15:48 023 OCT/Retina completed GILLES COOPER MD [address] [place] [address], [phone], [facility] 01/06/2023 09:15:41 023 biopsy of lung completed Gilles Nayak [facility] 01/06/2023 08:27:56 023 Visual Field Extended completed GILLES COOPER MD [address] [place] [address], [phone], [facility] 05/14/2022 14:44:47 022 OCT/Retina completed GILLES COOPER MD [address] [place] [address], [phone], [facility] 10/08/2021 16:44:46 022 OCT/Nerve completed GILLES COOPER MD [address] [place] [address], [phone], [facility] 05/24/2021 16:40:05 022 OCT/Retina completed GILLES COOPER MD [address] [place] [address], [phone], [facility] 05/24/2021 16:40:06 021 Visual Field Extended completed GILLES COOPER MD [address] [place] [address], [phone], [facility] 11/22/2020 16:17:23 021 OCT/Nerve completed GILLES COOPER MD [address] [place] [address], [phone], [facility] 08/17/2020 13:57:05 017 Cystourethroscopy completed Tia Hall [facility] 08/28/2016 14:44:58 017 Post Void Residual; Ultrasound completed Radha Herron [facility] 07/24/2016 16:36:07 Imaging Results None recorded. Procedure Notes None recorded. Medical Equipment None Reported. Allergies Allergen ID Allergen Name Allergen Category Reaction Reaction Severity Criticality Documentation Date Start Date Code Code System Note Provider Name and Address Organization Details Recorded Time 032655 morphine sulfate medicatio n Not available Not available Not available 02/01/20162012 05393 RxNorm Comme nt: Creat ed By: Trav Morales; Paula ed Date: 2012 3:45: 55 PM; Not Available [facility] 6 12:01:18 407977 tetracycl ine hydrochlo ride medicatio n Not available Not available Not available 02/01/20162015 40601 6 RxNorm Comme nt: Creat ed By: Muna graves Date: 2015 1:56: 37 PM; Not Available [facility] 6 12:01:18 968869 morphine sulfate medicatio n other Not available Not available 02/02/20162008 11327 RxNorm React ion: OTHER ; Comme nt: Creat ed By: Donn Do ely Date: 009 10:16 :46 AM; Not Available [facility] 6 08:25:26 964265 Keflex medicatio n Not available Not available Not available 08/16/201957279 7 RxNorm Nilam Johnie [facility] 0 14:21:12 305368 Product containin g penicilli n (product) medicatio n rash Not available Not available 05/24/2021 05045 8001 SNOMED David Maribel cuellar [facility] 2 15:50:09 328288 Crestor medicatio n Not available Not available Not available 10/08/2021 28015 4 RxNorm Yamel Wild [facility] 2 15:39:18 972876 rosuvasta tin medicatio n Not available Not available Not available 10/08/2021 23092 2 RxNorm Yamel Wild [facility] 2 15:39:36 Medications Name Sig Start [...] Tobacco Smoking Status Never Smoker Esperanza Day [facility] 06/26/2016 15:31:37 How Much Tobacco Do You Chew? None Information not available 09/30/2016 What Was The Date Of Your Most Recent Tobacco Screening? 12/29/2023 [email or web address] Information not available 12/29/2023 Has Tobacco Cessation Counseling Been Provided? No [email or web address] Information not available 09/30/2016 Sex: Female Functional Status Question Answer Note LastModified by Organization D etails LastModified Time What is your level of alcohol consumption? Moderate [email or web address] Information not available 09/30/2016 Mental Status None recorded. Family History Relationship Description Onset Age of this Age Resolved Age Notes LastModified by Organization Details LastModified Time Father Arthritis [email or web address] Not avail able 09/30/2016 13:26:28 Notes:1. Heart disease MOTHE R and grandparents 2. Hypertension mother 3. Acute myocardial infarction gfth 4. Stroke syndrome mth 5. Droopy Eyelid gmth Medical History Condition Response Emphysema N Depression Y COPD N Glaucoma N Diabetic Eye Disease Y Anemia Y Heart Attack ([place]) Y Diabetes Y Bleeding Disorder N Arthritis [...] ICD10 Code Diagnosis IMO Codes Diagnosis Note [id number] YONG ZHU MD OPHTHALMO LOGY [address] [place] [address] 06/26/2016 14:57:47 06/28/2016 08:27:08 Proliferative retinopathy due to diabetes mellitus 48399339 E13.3593 Epiretinal membrane 3676 69553 H35.373 Bilateral pseudophakia 5286765237 7076908 Z96.1 bilateral Type 1 albino betes mellitus 72902336 E10.028 [id number] MD JOSEPH FUNG [facility] [address] [place] [address] 07/24/2016 15:44:15 07/24/2016 16:45:12 Delay when starting to pass urine 3911174 R39.11 we discussedc onsiderati on of cystoscopy with possible urethral dilation. Thus just we perform this under sedation. We will arrange for this later this month. Retention of urine 08692 4002 R33.9 Microscopic hematuria 19 3574027 R31.21 [id number] TONY LYNN MD SURGERY SCHEDULE [address] [place] [address] 08/07/2016 07:54:29 08/07/2016 07:57:18 [id number] MD [facility]PH [facility] [address] [place] [address] 08/28/2016 13:38:12 08/30/2016 15:09:08 Urethral stenosis 884263796 N35.9 Perimenopa usal atrophic vaginitis 207777553 N95.2 She will try Estrace cream if economical ly feasible. She will follow-up with me in 3-4 months and Karen [id number] CHRIS ROCHA APRN RHEUMATOL OGJolene [address] [place] [address] 09/30/2016 13:13:19 10/01/2016 10:18:02 Anti-nuclear factor detected 979784529 R76.8 66 year old female presents with [...] will have her follow up accordinglee pena. [id number] CHRIS ROCHA APRN RHEUMATOL INEZ [address] [place] [address] 01/31/2017 15:37:06 01/31/2017 16:35:06 Anti-nuclear factor detected 392865293 R76.8 Patient complains of fatigue, joint pains, [...] clinically monitor.Alexys jameson offered reassuranc e today. [id number] KATHI LOPEZ MD NEUROSURG [facility] [address] [place] [address] 05/12/2017 13:25:54 05/12/2017 14:32:04 Spondylolisthesis 582080356 M43.10 Minutes spent reviewing images, discussing the diagnosis and coordinati ng care: 30 min [id number] YNOG ZHU MD OPHTHALMO [place] [address] [place] [address] 08/12/2017 13:35:44 08/13/2017 09:21:54 Type 1 diabetes mellitus 55517627 E10.319 Quiescent proliferative retinopathy due to diabetes mellitus 524966654 E11.3599 Bilateral pseudophakia 4792816254 7246857 Z96.1 bilateral Secondary glaucoma 86418 004 H40.52X1 [id number] YONG ZHU MD OPHTHALMO RICKEY [address] [place] [address] 5 01/22/2018 15:08:21 01/23/2018 10:13:59 Primary open angle glaucoma 72071957 H40.1131 Type 1 albino betes mellitus 99522620 E10.37X1 ou Myopic astigmatism 15742 4005 H52.209 Presbyopia 25908432 H52. 4 Bilateral pseudophakia 8242410887 1549325 Z96.1 bilateral Non-high-r isk proliferative retinopathy with clinically significant macular edema due to diabetes mellitus 237528007 E11.3519 [id number] YONG ZHU MD OPHTHALMO [place] [address] [place] [address] 05/21/2018 15:40:26 05/22/2018 11:49:46 Primary open angle glaucoma 65779578 H40.1131 Type 1 albino betes mellitus 09019525 E10.37X1 ou Quiescent proliferative retinopathy due to diabetes mellitus 445184493 E11.3599 Macular ed merlyn due to diabetes mellitus 706104684 E11.972 [id number] YONG ZHU MD OPHTHALMO [place] [address] [place] [address] 10/08/2018 12:53:43 10/09/2018 11:51:53 Primary open angle glaucoma 55045660 H40.1131 Bilateral pseudophakia 1652813617 7074163 Z96.1 bilateral Proliferat steven retinopathy due to type 1 diabetes mellitus 1906415322 9101 E10.3599 bilateral [id number] YONG ZHU MD OPHTHALMO LOGY [address] [place] [address] 08/16/2019 14:02:22 08/17/2019 15:46:45 Type 1 diabetes mellitus 16753154 E10.37X1 ou High risk proliferative retinopathy without macular edema due to diabetes mellitus 729366011 E11.3599 ou Epiretinal membrane 3676 65605 H35.373 left Blurring o f visual image 705672352 H53.8 right [id number] YONG ZHU MD OPHTHALMO LOGY [address] [place], [place] [address] 02/14/2020 14:06:52 02/14/2020 16:15:31 Adverse reaction to drug 99191604 T50.905A Modafinil (simlar ti ritalin) Type 1 albino betes mellitus 38535354 E10.37X1 ou Proliferat steven retinopathy due to type 1 diabetes mellitus 6021441533 9101 E10.3599 bilateral Quiescent proliferative retinopathy due to diabetes mellitus 724137223 E11.3599 ou Bilateral pseudophakia 7909263440 0959527 Z96.1 bilateral Myopic astigmatism 18036 4005 H52.209 od Presbyopia 97736166 H52. 4 [id number] GILLES COOPER MD OPHTHALMO LOGY [address] [place] [address] 08/17/2020 12:36:13 08/17/2020 16:03:23 Primary open angle glaucoma 20586888 H40.1132 iop elevated today but pt not sure if got enough drop. states iop runs high teens usually rec continue latanopros t qhs ou baseline rnfl today shows sev thinning but cold be d/t PRP nerves appear okay ou rec 3 mo iop check, hvf - 10-2 (previous constricti on d/t prp) Pseudophakia 99161923 Z9 6.1 Proliferat steven retinopathy due to type 1 diabetes mellitus 4852612520 9101 E10.3599 continue to follow with TANESHA. [id number] GILLES COOPER MD OPHTHALMO LOGY [address] [place] [address] 11/22/2020 15:00:00 11/22/2020 16:18:12 Primary open angle glaucoma 26814107 H40.1132 iop better borderline oshvf today 10=2 relatively okay todayconti nue latanoprst qhs6 mo complete, rnfl [id number] GILLES COOPER MD OPHTHALMO LOGY [address] [place] [address] 05/24/2021 15:33:06 05/24/2021 16:45:49 Primary open angle glaucoma 06170214 H40.1132 iop better borderline os - stablernfl with stable thinning ou todayconti nue latanopros t qhs ou6 mo hvf 10-2 and iop check Proliferat steven retinopathy due to type 2 diabetes mellitus 8305825577 109 E11.3599 oct shows possible cysts today - rec f/u with TANESHA as scheudled [id number] GILLES COOPER MD OPHTHALMO LOGY [address] [place] [address] 10/08/2021 15:09:27 10/08/2021 16:47:33 Proliferative retinopathy due to type 2 diabetes mellitus 7458694794 109 E11.3599 oct shows conitnued cysts os - rec f/u with RAKod no swellingof fered mr today - no significan t changes Primary op en angle glaucoma 97959427 H40.1132 iop borderline f/u as scheudled for hvf 10-2 Corneal dystrophy 165284 4 H18.509 banding od - still not in vis axis but may be progressin g - obs for now, consider chelation in future [id number] GILLES COOPER MD OPHTHALMO LOGY [address] [place] [address] 05/01/2022 09:30:33 05/01/2022 12:07:24 Proliferative retinopathy due to type 2 diabetes mellitus 0896181616 109 E11.3599 continue f/u with TANESHA Primary op en angle glaucoma 07787704 H40.1132 needs hvf 10-2 on return Corneal dystrophy 251291 4 H18.509 banding od - still not in vis axis but may be progressin g - obs for now, consider chelation in future Conjunctivitis 2746499 H 10.013 one drop qid x2 weekswash handsdont share hygiene objects2 week conj check [id number] GILLES COOPER MD OPHTHALMO LOGY [address] [place] [address] 05/14/2022 13:34:14 05/14/2022 15:40:58 Primary open angle glaucoma 16121473 H40.1132 hvf 10-2 today stablecont inue latanopros tqhs ou6 mo complete, rnfl, oct mac Acute conj unctivitis caused by chemical 2566893235 08461 H10.213 resolved, obs for now [id number] GILLES COOPER MD OPHTHALMO LOGY [address] [place], [place] [address] 01/06/2023 07:51:36 01/06/2023 10:23:45 Long-term drug therapy 388076237 Z79.899 just started margaret - one pill/dayma x daily dose per body weight is 331mg/day - recommend stay under this dose.rec f/u with TANESHA for 2nd opinion given significan t diabetic eye diseasedis cussed risks of plaquenil usage and vision loss. Primary op en angle glaucoma 53892064 H40.1132 IOP good todayconti nue latanopros t qhs ouRnfl today shows thinning os>od6 mo iop check, hvf 10-2 Proliferat steven retinopathy due to type 2 diabetes mellitus 2794177977 109 E11.3599 continue f/u with RAKfew cystic changes on oct todayglc control recommende d. [id number] GILLES COOPER MD OPHTHALMO LOGY [address] [place] [address] 04/16/2023 12:56:15 04/16/2023 14:13:30 Proliferative retinopathy due to type 2 diabetes mellitus 9277691065 109 E11.3599 continue f/u with RAKoct today shows increased cme od - likely cause of subjective vis declinerec f/u with TANESHA for thisrec consider hand/stand magnifier Primary op en angle glaucoma 50915562 H40.1132 iop high today -rec compliance with dropsconti nue latanopros t qhs ourecheck iop 2 mo with hvf 10-2 Bilateral pseudophakia 5283038747 8616328 Z96.1 os has some phacodones is today - not sure if present previously - monitormay call back for lined bf Calcific b and keratopathy 086245426 H18.429 discussed chelation in future [id number] GILLES COOPER MD OPHTHALMO LOGY [address] [place] [address] 06/16/2023 13:49:36 06/16/2023 15:10:32 Primary open angle glaucoma 55275163 H40.1132 iop high today but betterrec add brimonidin e bid ou3 mo iop checkhvf today with defects ou - mild decline of md ourec f/u with TANESHA for eval retina/margaret quenil Long-term drug therapy 325660516 Z79.[address] started margaret - one pill/dayma x daily dose per body weight is 331mg/day - recommend stay under this dose.rec f/u with TANESHA for 2nd opinion given significan t diabetic eye diseasedis cussed risks of plaquenil usage and vision loss. [id number] GILLES COOPER MD OPHTHALMO LOGY [address] [place] [address] 09/22/2023 12:42:06 09/22/2023 13:28:26 Primary open angle glaucoma 31784994 H40.1132 iop continues to improvecon tinue latanopros t qhs ou, brimonidin e bid ourecheck 5 mo complete, rnfl Calcific b and keratopathy 425161446 H18.429 discussed with patientrec referral to Dr. Grimaldo for additional evaluation and possible tx as recent MR fails to significan tly improve things Proliferat steven retinopathy due to type 2 diabetes mellitus 1377397483 109 E11.3599 continue f/u with TANESHA [id number] GUERRERO TRAYLOR PA-C [place] [address] [place] [address] 10/30/2023 13:38:00 11/05/2023 12:42:41 Multiple benign melanocytic nevi 870997164 D22.5 I78.1 L82.1 L81.4 Benign appearing lesions.Co ntinue to monitor and follow-up with any or changing lesions.Re commend to wear SPF 30+ with zinc or titanium oxide cream daily. Prefers lotions/cr eams over sprays. Rec moisturisi ng with CeraVe or Cetaphil cream after showering Neoplasm o f uncertain behavior of skin 20152219 D48.5 Biopsy recommende d today.- Verbal consent [...] persists or do not resolve. Prurigo nodularis 007375 00 L28.1 Lean to PN.Try not to pick lesions. Discussed treatment with topical steroid.Rx sent for Clobetasol 0.05% cream to use BID for up to two weeks thn limit use to weekends onlyIf areas do not improve, can discuss treatment further Has scheduled appointmen t with Dr. Mccauley for further discussion Diabetic foot ulcer 3710 77617 E13.621 Patient sees senior packaging engineer for this lesion.Rec continuing care with senior packaging engineer .If not improving, please follow-up. [id number] OCTAVIA PICKERING MD [address] [address] 12/29/2023 15:41:57 12/29/2023 16:14:24 Senile purpura 32329146 D69.2 Thinning of the skin due to chronic sun damage. Makes bruising easier as blood vessels are closer the the surface.Re c using OTC CeraVe AM sunscreen on face daily.Rec moisturizi ng with OTC Cetaphil Cream daily.No overt rash today. Actinic damage and Sks noted. Squamous c ell carcinoma of upper extremity 223487652 C44.622 Bx on 11/03/2023 proven SCC on right handPath #: [id number]. She has Mohs scheduled 01/13/2024 .Advised to keep Mohs appointmen t. Seborrheic keratosis 394 869094 L82.1 Benign over growths of skin. Reassuranc e given. Wound of skin 167796016 T14.8XXA R wrist has focal desquamati on that is c/w with healing skin at this point. She does have f/u in Jan and can be reassessed if not resolved. [id number] LUIS GONG MD [address] [address] 01/13/2024 07:37:44 01/16/2024 11:06:31 [id number] GILLES COOPER MD OPHTHALMO LOGY [address] [place] [address] 03/23/2024 15:10:10 03/23/2024 17:04:29 Primary open angle glaucoma 55097915 H40.1132 iop continues to improvecon tinue latanopros t qhs ou, brimonidin e bid ouRNFL with thinning os>oddiff with viewing nerve od due to band6 mo iop check, hvf 24-2 Calcific b and keratopathy 853428046 H18.429 pt to consider the chelation Proliferat steven retinopathy due to type 2 diabetes mellitus 5507921673 109 E11.3599 continue f/u with RAKgetting shots ou [id number] GUERRERO TRAYLOR PA-C [address] [address] 07/05/2024 11:20:18 07/05/2024 12:39:35 Multiple benign melanocytic nevi 780700639 D22.5 I78.1 L81.4 L82.1 Benign appearing lesions.Co ntinue to monitor and follow-up with any or changing lesions.Re commend to wear SPF 30+ with zinc or titanium oxide cream daily. Prefers lotions/cr eams over sprays.Fol low up in 6 months for a full skin exam. History of malignant neoplasm of skin 566558465 Z85.828 Scar is clear. Well healed scar. No evidence of recurrence . Prurigo nodularis 894845 00 L28.1 587 Lean to PN.Try not to pick lesions. Continue Clobetasol 0.05% cream to use BID for up to two weeks thn limit use to weekends onlyIf areas do not improve, can discuss treatment further. Stasis dermatitis 072917 05 I87.2 33712 JAS negativeVe nous stasis. Vascular changes.Re commend to moisturize legs everyday with OTC Cetaphil or Cereve Moisturizi ng Cream.Rx sent for Clobetasol 0.05% ointment to AA BID for up to 2 weeks. Then use on weekends only.Limit applicatio n of topical steroids to 2 weeks.exterminator helper use of topical steroids can cause thinning of the skin. Neoplasm o f uncertain behavior of skin 31018665 D48.5 Biopsy recommende d today. - Verbal [...] lesion(s). Also consider PNDiscusse d biopsy vs HF2Njre LN2 today.Can leave a white discolorat ion in the areas when LN2 is performed. Follow-up if lesion(s) persists or do not resolve. [id number] GILLES COOPER MD OPHTHALMO [address] [place] [address] 09/23/2024 12:52:56 09/23/2024 15:19:31 Primary open angle glaucoma 58587434 H40.1132 iop stablecont inue latanopros t qhs ou, brimonidin e bid ouhvf today stable ou6 mo complete, rnfl ou Calcific b and keratopathy 398073526 H18.429 suspect changing rx with hx of chelation oumr todaycall with problems Proliferat steven retinopathy due to type 2 diabetes mellitus 4804819184 109 E11.3599 continue f/u with RAKgetting shots ouno sig changes on retinal oct today [id number] ALEXYS DAMON [place] [address] [place] [address] 09/30/2024 12:19:45 09/30/2024 13:10:32 Eruption 449536516 R21 35801 Possible drug reaction.P mike has Lupus. she is on Mycophenol ate and plaquenil. Pt states she was put on abx aroun d the same time blisters startedPt to call if blister returns. ext # given to pt We need to see when active. (pt had tried getting in sooner when she was flared) Actinic keratosis 007 L57.0 115603 The nature of the diagnosis was explained. [...] ID Guarantor Name 10/02/2021 1 [employer] [id number] Michelle Felipe [id number] Michelle Felipe 12/19/2024 1 [facility] (MEDICARE REPLACEMENT/A DVANTAGE - PPO) [id number] Michelle Felipe [id number] Michelle Felipe Notes Date Note Type Note Provider Name and Address Organization Details Recorded Time 03/23/2024 text/html ROS as noted in the HPI GILLES COOPER MD [address] [place] [address], [phone], [facility] 03/23/2024 19:27:23 07/05/2024 text/html ROS as noted in the HPI I am here for a skin checkRed, dry skin on arms and legsScabs on shoulders & back History of SCCR hand GUERRERO TRAYLOR PA-C [address] [place] [address], [phone], [facility] 07/06/2024 10:26:15 09/23/2024 text/html ROS as noted in the HPI GILLES COOPER MD [address] [place] [address], [phone], [facility] 09/23/2024 15:17:02 09/30/2024 text/html ROS as [...] prior to having blisters. ALEXYS DAMON [address] [place], [address], [facility] 10/03/2024 21:03:16 OBGyn Episode No OBEpisode recorded.
--- OUTSIDE RECORDS SUMMARY | 2025-01-26 15:35 | XMS_ITS | Data Portability ---
Author Organization [facility] - Edgar montgomery MD, Main Office Address [address], [address] [place] [address] Care Team Providers Care Driller And Reamer Name Role Phone BRUCE BOYER Primary Care [...] By Organization Details Last Modified Time 08/21/2021 [id number] Finding has been discussed with the patient in detail. Outpatient physical therapy referral for strengthening of her lower extremities. I anticipate that she should be able to walk in the next few months. Return as needed. Not available 08/21/2021 08:50:00 01/10/2022 [id number] Finding has been discussed with the patient [...] Last Updated DateTime 162.56 cm 25.7 kg/m2 33416.8 6 g 79 /min 17 /min 127/76 mm[Hg] Edgar Irwin MD [address] , [facility] [address], [place], [phone] [facility] MD 08:45:55 Date Recorded Body mass index (BMI) Body weight Heart rate Respiratory rate Systolic And Diastolic Provider Name and Address Organization Details Last Updated DateTime 01/10/2022 25.9 kg/m2 68670.4 5 g 80 /min 16 /min 132/77 mm[Hg] Edgar Irwin MD [address], [facility] [address], [place], [address], [facility] Irwin MD 14:54:47 Date Recorded Body [...] ICD10 Code Diagnosis IMO Codes Diagnosis Note [id number] Edgar Irwin MD Main Office [address], [facility] [address] [place] [address] 08/21/2021 07:51:12 08/21/2021 08:32:10 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 [id number] Edgar Irwin MD Main Office [address], [facility] [address] [place] [address] 01/10/2022 10:56:27 01/10/2022 11:33:09 Impairment of balance [id number] R26.89 The patient is a 71-year-ol d [...] Byrne Member ID Guarantor Name 01/08/2022 1 [facility] (MEDICARE REPLACEMENT/A DVANTAGE - PPO) [id number] Michelle Felipe [id number] Michelle Felipe Notes Date Note Type Note Provider Name a vt Address Organization Details Recorded Time 08/21/2021 text/html [...] alcohol. Edgar Irwin MD [address], [facility], [place], [address], [facility] Edgar Irwin MD 08/21/2021 08:50:30 01/10/2022 text/html [...] for atrial fibrillation. MD [address], [facility] [address], [place], [address], [facility] Esthela Irwin MD 01/10/2022 14:58:00 OBGyn Episode No OBEpisode recorded.
== END 2025-01-26 23:59 | disposition home or self-care (01) ==
LOC: LAB 14:17
PROVIDERS: PCP Internal Medicine; Visit Provider Nurse Practitioner Gerontology
DX: I51.3 Intracardiac thrombosis, not elsewhere classified (principal); I24.0 Acute coronary thrombosis not resulting in myocardial infarction
CPT/HCPCS: 36415; 85610